=== PATIENT | male | born 1970 | race Caucasian/White ===

== ENCOUNTER 2023-02-22 19:54 | Emergency (ER) | payer OTHER, SELFPAY ==
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
[2023-02-22 21:23] VITALS: BP 139/92; PULSE 76; RESP 16; TEMP 36.9; O2SAT 97; BMI 32.7
== END 2023-02-22 21:50 | disposition home or self-care (01) ==
PROVIDERS: Emergency Provider Emergency Medicine; PCP Family Medicine
DX: S92.321A Displaced fracture of second metatarsal bone, right foot, initial encounter for closed fracture (principal); V03.90XA Pedestrian on foot injured in collision with car, pick-up truck or van, unspecified whether traffic or nontraffic accident, initial encounter
CPT/HCPCS: 73630; 99283

== ENCOUNTER 2023-02-24 15:14 | Outpatient (OUT) | payer OTHER, SELFPAY ==
--- NOTE | 2023-02-24 | XR_ITS ---
[address] [address] Patient Name: HARLAN ARNOLD MRN: [id number] date: 1970 Sex: M Assigned Patient Location: Current Patient Location: Accession/Order Number: [id number] Exam Date: 02/24/2023 15:28 Report Date: 02/25/2023 07:36 At the request of: FANNIE PAUL Procedure: XR foot RT min 3V PROCEDURE: XR foot RT min 3V COMPARISON: 02/22/2023 HISTORY: RIGHT FOOT PAIN FINDINGS: BONES:Stable fractures lateral base of the first distal phalanx and neck of the second metatarsal mild interval healing. No new fracture or dislocation SOFT TISSUES:Negative. No visible soft tissue swelling. EFFUSION:None visible. OTHER: Negative. IMPRESSION: Stable healing fractures Electronically authenticated by: AUDELIA SILVER Date: 02/25/2023 07:36
== END 2023-02-24 15:15 | disposition home or self-care (01) ==
LOC: WC 15:14
PROVIDERS: PCP Family Medicine; Visit Provider Physician Assistant
DX: M79.671 Pain in right foot (principal)
CPT/HCPCS: 73630

== ENCOUNTER 2023-03-10 14:17 | Outpatient (OUT) | payer OTHER, SELFPAY ==
--- NOTE | 2023-03-10 14:24 | XR_ITS ---
The [address] [address] Patient Name: HARLAN ARNOLD MRN: [id number] date: 1970 Sex: M Assigned Patient Location: [facility] Current Patient Location: Accession/Order Number: [id number] Exam Date: 03/10/2023 14:24 Report Date: 03/11/2023 07:29 At the request of: FANNIE PAUL Procedure: XR foot RT min 3V PROCEDURE: XR foot RT min 3V COMPARISON: 02/24/2023 HISTORY: RIGHT FOOT PAIN FINDINGS: BONES:Stable healing oblique extra-articular fracture distal diaphysis and neck of the second metatarsal with partial bony bridging. No new fracture. No dislocation. Degenerative changes with marginal osteophyte formation and enthesopathic spurring SOFT TISSUES:Negative. No visible soft tissue swelling. EFFUSION:None visible. OTHER: Negative. XR/XR foot RT min 3V IMPRESSION: Stable healing second metatarsal fracture Electronically authenticated by: AUDELIA SILVER Date: 03/11/2023 07:29
== END 2023-03-10 14:18 | disposition home or self-care (01) ==
LOC: RAD 14:17
PROVIDERS: PCP Family Medicine; Visit Provider Physician Assistant
DX: S92.424A Nondisplaced fracture of distal phalanx of right great toe, initial encounter for closed fracture (principal)
CPT/HCPCS: 73630

== ENCOUNTER 2023-03-30 11:42 | Outpatient (OUT) | payer OTHER, SELFPAY ==
--- NOTE | 2023-03-30 11:45 | XR_ITS ---
The [address] [address] Patient Name: HARLAN ARNOLD MRN: [id number] date: 1970 Sex: M Assigned Patient Location: [facility] Current Patient Location: [facility] Accession/Order Number: [id number] Exam Date: 03/30/2023 11:45 Report Date: 03/30/2023 13:39 At the request of: JOANIE BURGOS Procedure: XR foot RT min 3V STUDY: XR foot RT min 3V, [id number] HISTORY: RIGHT FOOT PAIN COMPARISON: Right foot x-rays 03/10/2023 and 02/24/2023. FINDINGS: Similar alignment and degree of displacement of the transverse oriented fracture of the distal diaphysis of the right second metatarsal which demonstrates interval bony consolidation and callus formation compared with 03/10/2023. No new or worsening osseous abnormality. XR/XR foot RT min 3V IMPRESSION: Healing second metatarsal fracture. Electronically authenticated by: PAOLA MACK Date: 03/30/2023 13:39
== END 2023-03-30 11:43 | disposition home or self-care (01) ==
LOC: RAD 11:43
PROVIDERS: PCP Family Medicine; Visit Provider Podiatrist Foot & Ankle Surgery
DX: S92.421D Displaced fracture of distal phalanx of right great toe, subsequent encounter for fracture with routine healing (principal); S92.321D Displaced fracture of second metatarsal bone, right foot, subsequent encounter for fracture with routine healing
CPT/HCPCS: 73630

== ENCOUNTER 2023-11-22 11:20 | Emergency (ER) | payer SELFPAY ==
[2023-11-22 11:29] VITALS: BP 189/117; PULSE 85; TEMP 36.4; O2SAT 98; BMI 33.5
--- NOTE | 2023-11-22 12:21 | ED.ABDPAIN1 ---
HPI - Abdominal Pain General Chief Complaint: Abdominal Pain Stated Complaint: ABDOMINAL PAIN Time Seen by Provider: 11/22/23 11:52 Source: patient Mode of arrival: walk-in History of Present Illness HPI narrative: 53-year-old male presents to the emergency department for low abdominal pain and possible constipation. He states he has been having issues like this for years and 5 years ago he had a colonoscopy. Recently he has had hard stools and he tries to push it out and it comes out then. This is not unusual for him. No blood in his stool or vomiting. His pain is moderate to severe and in the lower abdomen. Related Data Allergies Allergy/AdvReac Type Severity Reaction Status Date / Time No Known Drug Allergies Allergy Verified 02/22/23 21:26 Review of Systems ROS Narrative A ten point review of systems is negative except as noted above. Exam Narrative Exam Narrative: Nurses note and vital signs reviewed and patient is not hypoxic. General: The patient appears well and in no apparent distress. Patient is resting comfortably on cart. Skin: Warm, dry, no pallor noted. There is no rash noted. Head: Normocephalic, atraumatic Eye: Normal conjunctiva, no drainage Ears, Nose, Mouth, and Throat: oral mucosa is moist. Nares patent. Cardiovascular: Regular Rate and Rhythm Respiratory: Patient is in no distress, no accessory muscle use, lungs are clear to auscultation, no wheezing, rales or rhonchi Back: non-tender GI: Mild tenderness across lower abdomen without distention or mass Musculoskeletal: The patient has no evidence of calf tenderness, no pitting edema, symmetrical pulses noted bilaterally Neurological: A&O, normal speech Psychiatric: Cooperative Constitutional Vital Signs, click to edit/add: Last Vital Signs Temp 97.6 F 11/22/23 11:29 Pulse 85 11/22/23 11:29 Resp 17 11/22/23 11:29 BP 189/117 H 11/22/23 11:29 Pulse Ox 98 11/22/23 11:29 O2 Del Method Room Air 11/22/23 11:29 Course Vital Signs Vital signs: Vital Signs Temperature 97.6 F 11/22/23 11:29 Pulse Rate 85 11/22/23 11:29 Respiratory Rate 17 11/22/23 11:29 Blood Pressure 189/117 H 11/22/23 11:29 Pulse Oximetry 98 11/22/23 11:29 Oxygen Delivery Method Room Air 11/22/23 11:29 Temperature 97.6 F 11/22/23 11:29 Pulse Rate 85 11/22/23 11:29 Respiratory Rate 17 11/22/23 11:29 Blood Pressure 189/117 H 11/22/23 11:29 Pulse Oximetry 98 11/22/23 11:29 Oxygen Delivery Method Room Air 11/22/23 11:29 MDM - Abdominal Pain MDM Narrative Medical decision making narrative: CT scan per radiologist shows presence of diverticulosis but no diverticulitis. He seems to be constipated on the x-rays and findings are discussed thoroughly with the patient. She had a colonoscopy about 5 years ago and will follow-up with his doctor to determine if he needs another 1. Treatment diagnosis and follow-up were discussed with the patient Differential Diagnosis Differential diagnosis: Likely abdominal pain, constipation, diverticulitis, pancreatitis and other (Colitis, nonspecific abdominal pain) Lab Data Attestation: I reviewed the patient's lab results. Labs: Lab Results 11/22/23 11/22/23 Range/Units 11:38 11:39 WBC 6.0 (4.0-11.0) 10^3/uL RBC 5.64 (4.70-6.10) 10^6/uL Hgb 18.3 H (14.0-18.0) g/dL Hct 53.2 (42.0-54.0) % MCV 94.3 H (80.0-94.0) fL MCH 32.4 (25.9-34.0) pg MCHC 34.4 (29.9-35.2) g/dL RDW 11.5 (11.0-15.0) % Plt Count 188 (150-450) 10^3/uL MPV 11.1 (9.5-13.5) fL Neut % (Auto) 54.5 (43.0-75.0) % Lymph % (Auto) 25.8 (20.5-60.0) % [place] % (Auto) 9.7 (1.7-12.0) % Eos % (Auto) 8.9 H (0.9-7.0) % Baso % (Auto) 0.8 (0.2-2.0) % Neut # (Auto) 3.3 (1.4-6.5) 10^3/uL Lymph # (Auto) 1.5 (1.2-3.8) 10^3/uL [place] # (Auto) 0.6 (0.3-0.8) 10^3/uL Eos # (Auto) 0.5 (0.0-0.7) 10^3/uL Baso # (Auto) 0.1 (0.0-0.1) 10^3/uL Abs Immat Gran (auto) 0.02 (0.00-0.03) 10^3/uL Imm/Tot Granulo (auto) 0.3 (0.0-0.5) % Sodium 139 (136-145) mmol/L Potassium 3.9 (3.5-5.1) mmol/L Chloride 100 (98-107) mmol/L Carbon Dioxide 29.4 (21.0-32.0) mmol/L Anion Gap 13.5 BUN 7.0 (7.0-18.0) mg/dL Creatinine 1.13 (0.70-1.30) mg/dL Est GFR ( Amer) >60 (>=60) Est GFR (Non-Af Amer) >60 (>=60) BUN/Creatinine Ratio 6.2 Glucose 102 (74-106) mg/dL Calcium 9.1 (8.5-10.1) mg/dL Total Bilirubin 0.8 (0.2-1.0) mg/dL Direct Bilirubin 0.2 (0.0-0.2) mg/dL AST 23 (15-37) U/L ALT 44 (16-63) U/L Alkaline Phosphatase 103 (46-116) U/L Total Protein 7.7 (6.4-8.2) g/dL Albumin 4.3 (3.4-5.0) g/dL Globulin 3.4 g/dL Albumin/Globulin Ratio 1.3 Amylase 60 (25-115) U/L Lipase 39.0 (16.0-77.0) U/L Urine Color Lt. yellow (YELLOW) Urine Clarity Clear (CLEAR) Urine pH 7.0 (5.0-9.0) Ur Specific [place] 1.010 (1.005-1.025) Urine Protein Negative (NEG/TRACE) mg/dL Urine Glucose (UA) Negative (NEGATIVE) mg/dL Urine Ketones Negative (NEGATIVE) mg/dL Urine Occult Blood Negative (NEGATIVE) Urine Nitrite Negative (NEGATIVE) Urine Bilirubin Negative (NEGATIVE) Urine Urobilinogen 0.2 (0.2-1.0) EU/dL Ur Leukocyte Esterase Negative (NEGATIVE) Urine RBC None seen (0-2) #/HPF Urine WBC None seen (NONE SEEN) #/HPF Ur Squamous Epith Cells Rare (NONE/RARE) #/LPF Urine Bacteria None seen (NONE SEEN) #/HPF Urine Mucus None seen (NONE SEEN) Imaging Data CT scan - abdomen: Radiologist's impression: ITS Impressions Abdomen X-Ray 11/22/23 12:23 IMPRESSION: 1. Mild-moderate stool burden. 2. No bowel obstruction or suspicious findings. Electronically authenticated by: MANUEL TAM Date: 11/22/2023 13:05 Abdomen/Pelvis CT 11/22/23 13:30 IMPRESSION: 1. Large degree of diverticulosis of the descending colon and sigmoid colon without acute inflammation. 2. No bowel obstruction. There is no evidence of acute inflammation of the small bowel or colon. 3. A simple cyst in the right kidney is stable. No kidney stones. No hydronephrosis. Electronically authenticated by: MELY GROVE Date: 11/22/2023 14:27 Discharge Plan Discharge Stand Alone Forms: Portal Instructions Chief Complaint: Abdominal Pain Clinical Impression: Constipation Patient Disposition: Home, Self-Care Time of Disposition Decision: 14:28 Condition: Good Mode of Transportation: Private Vehicle Print Language: Persian Instructions: Constipation (ED) Additional Instructions: Follow-up with your PCP to discuss if you need a colonoscopy. Referrals: MELY BONILLA [Primary Care Provider] - 1 week
--- NOTE | 2023-11-22 12:23 | XR_ITS ---
The [address] [address] Patient Name: HARLAN ARNOLD MRN: [id number] date: 1970 Sex: M Assigned Patient Location: ER Current Patient Location: ER Accession/Order Number: [id number] Exam Date: 11/22/2023 12:40 Report Date: 11/22/2023 13:05 At the request of: MARISOL BALL Procedure: XR abdomen 1V EXAMINATION: XR abdomen 1V HISTORY: Pain, possible constipation COMPARISON: XR abdomen 01/12/2020 FINDINGS: BOWEL GAS PATTERN: No abnormal bowel dilation, suspicious fluid levels, or significant stool burden. Small to moderate amount of stool throughout the colon. CALCIFICATIONS: None significant. OTHER: Negative. No abnormal gaseous collections. XR/XR abdomen 1V IMPRESSION: 1. Mild-moderate stool burden. 2. No bowel obstruction or suspicious findings. Electronically authenticated by: MANUEL TAM Date: 11/22/2023 13:05
[2023-11-22 12:35] LABS: Bilirubin Urine NEGATIVE (NEGATIVE); Blood Urine NEGATIVE (NEGATIVE); Clarity Urine CLEAR (CLEAR); Color Urine LT. YELLOW (YELLOW); Glucose Urine UA NEGATIVE (NEGATIVE); Ketones Urine NEGATIVE (NEGATIVE); Leukocyte Esterase Urine NEGATIVE (NEGATIVE); Nitrite Urine NEGATIVE (NEGATIVE); Protein Urine NEGATIVE (NEG/TRACE); Urobilinogen Urine 0.2 EU/dL (0.2-1.0)
[2023-11-22 12:45] LABS: Alanine Aminotransferase 44 U/L (16-63); Albumin Globulin Ratio 1.3; Albumin Level 4.3 g/dL (3.4-5.0); Alkaline Phosphatase 103 U/L (46-116); Amylase 60 U/L (25-115); Anion Gap 13.5; Aspartate Amino Transferase 23 U/L (15-37); BUN Creatinine Ratio 6.2; Bilirubin Direct 0.2 mg/dL (0.0-0.2); Bilirubin Total 0.8 mg/dL (0.2-1.0); Calcium 9.1 mg/dL (8.5-10.1); Carbon Dioxide 29.4 mmol/L (21.0-32.0); Chloride 100 mmol/L (98-107); Estimated GFR (African America >60 (>=60); Estimated GFR (Non-African Ame >60 (>=60); Globulin 3.4 g/dL; Glucose 102 mg/dL (74-106); Potassium 3.9 mmol/L (3.5-5.1); Sodium 139 mmol/L (136-145); Total Protein 7.7 g/dL (6.4-8.2)
[2023-11-22 12:48] LABS: Basophils Absolute Auto 0.1 10^3/uL (0.0-0.1); Basophils Percent Auto 0.8 % (0.2-2.0); Eosinophils Absolute Auto 0.5 10^3/uL (0.0-0.7); Eosinophils Percent Auto 8.9 % (0.9-7.0); Hematocrit 53.2 % (42.0-54.0); Hemoglobin 18.3 g/dL (14.0-18.0); Immature Granulocytes Abs Auto 0.02 10^3/uL (0.00-0.03); Immature Granulocytes Pct Auto 0.3 % (0.0-0.5); Lymphocytes Absolute Auto 1.5 10^3/uL (1.2-3.8); Lymphocytes Percent Auto 25.8 % (20.5-60.0); Mean Corpuscular HGB Conc 34.4 g/dL (29.9-35.2); Mean Corpuscular Hemoglobin 32.4 pg (25.9-34.0); Mean Corpuscular Volume 94.3 fL (80.0-94.0); Mean Platelet Volume 11.1 fL (9.5-13.5); Monocytes Absolute Auto 0.6 10^3/uL (0.3-0.8); Monocytes Percent Auto 9.7 % (1.7-12.0); Neutrophils Absolute Auto 3.3 10^3/uL (1.4-6.5); Neutrophils Percent Auto 54.5 % (43.0-75.0); Platelet Count 188 10^3/uL (150-450); Red Blood Count 5.64 10^6/uL (4.70-6.10); Red Cell Distribution Width 11.5 % (11.0-15.0)
[2023-11-22 12:54] LABS: Bacteria Urine NONE SEEN #/HPF (NONE SEEN); RBC Urine NONE SEEN #/HPF (0-2); WBC Urine NONE SEEN #/HPF (NONE SEEN)
[2023-11-22 12:55] LABS: Mucus Urine NONE SEEN (NONE SEEN); Squamous Epithelial Cell Urine RARE #/LPF (NONE/RARE)
--- NOTE | 2023-11-22 13:30 | CT_ITS ---
The [address] [address] Patient Name: HARLAN ARNOLD MRN: [id number] date: 1970 Sex: M Assigned Patient Location: ER Current Patient Location: ER Accession/Order Number: [id number] Exam Date: 11/22/2023 13:17 Report Date: 11/22/2023 14:27 At the request of: MARISOL BALL Procedure: CT abdomen pelvis w con CT abdomen and pelvis with contrast, 11/22/2023. HISTORY: Chronic abdominal pain. Diarrhea. Constipation. COMPARISON: CT abdomen and pelvis, 03/26/2022. TECHNIQUE: Postcontrast axial CT images obtained through the abdomen and pelvis. Reconstructions obtained in the sagittal and coronal planes. Dose reduction techniques were achieved by using automated exposure control and/or adjustment of mA and/or kV according to patient size and/or use of iterative reconstruction technique. FINDINGS: Lung bases are clear. No pleural effusion. Heart size is normal. No pericardial effusion. Liver unremarkable. Gallbladder normal. No abnormal bile duct dilatation. Pancreas is normal. Spleen normal. Adrenal glands normal. There is a simple cyst in the upper pole of the right kidney measuring 2.2 cm. This is stable. Kidneys are otherwise unremarkable. No hydronephrosis or kidney stones. Stomach normal. Duodenum normal. No small bowel obstruction. There is no small bowel wall thickening. The appendix is not clearly identified. No abnormal thickening of the colon. There are several diverticula along the descending colon and sigmoid colon without acute inflammation. Abdominal aorta normal in size. Inferior vena cava is normal in size. No ascites. No lymphadenopathy. No free air. In the pelvis, there is no bladder wall thickening. No bladder lesion. Prostate gland unremarkable. Rectum appears normal. No pelvic lymphadenopathy. No free fluid in the pelvis. No acute compression fracture. No suspicious osseous lesion. CT/CT abdomen pelvis w con IMPRESSION: 1. Large degree of diverticulosis of the descending colon and sigmoid colon without acute inflammation. 2. No bowel obstruction. There is no evidence of acute inflammation of the small bowel or colon. 3. A simple cyst in the right kidney is stable. No kidney stones. No hydronephrosis. Electronically authenticated by: MELY GROVE Date: 11/22/2023 14:27
== END 2023-11-22 14:40 | disposition home or self-care (01) ==
PROVIDERS: Emergency Provider Emergency Medicine; PCP Family Medicine
DX: K59.00 Constipation, unspecified (principal)
CPT/HCPCS: 36415; 74018; 74177; 80048; 80076; 81001; 82150; 83690; 85025; 99285; Q9967

== ENCOUNTER 2024-03-09 11:35 | Emergency (ER) | payer MEDICAID, SELFPAY ==
[2024-03-09 11:56] VITALS: BP 164/98; PULSE 119; TEMP 36.6; O2SAT 96; BMI 29.5
--- NOTE | 2024-03-09 12:11 | XR_ITS ---
The [address] [address] Patient Name: HARLAN ARNOLD MRN: [id number] date: 1970 Sex: M Assigned Patient Location: ER Current Patient Location: ED.MAIN Accession/Order Number: [id number] Exam Date: 03/09/2024 12:32 Report Date: 03/09/2024 12:47 At the request of: LA CORNELL Procedure: XR acute abdomen series EXAMINATION: XR acute abdomen series HISTORY: abd pain COMPARISON: No relevant comparison available. FINDINGS: LUNGS: No infiltrate, pneumothorax, or pleural effusion. MEDIASTINUM: No abnormal widening. BOWEL GAS PATTERN: Non-obstructed. No abnormal dilation or suspicious fluid levels. Moderate stool burden. FREE AIR: None. CALCIFICATIONS: None significant. BONES: No fracture or visible bone lesion. OTHER: Negative. XR/XR acute abdomen series IMPRESSION: 1. No acute cardiopulmonary process. 2. No bowel obstruction or suspicious abdominal findings. Moderate stool burden. Electronically authenticated by: MANUEL TAM Date: 03/09/2024 12:47
[2024-03-09 13:03] VITALS: BP 142/90; PULSE 80; O2SAT 98
--- NOTE | 2024-03-09 14:35 | ED.GENADUL1 ---
HPI HPI - General Adult General Chief complaint: Abdominal Pain Stated complaint: ABDOMINAL CRAMPING Time Seen by Provider: 03/09/24 13:50 Source: patient Mode of arrival: walk-in Limitations: no limitations History of Present Illness HPI narrative: Pt is a 53yo male who is presenting to the ER with chief complaint of 3 to 4 months of constipation. Patient has been in and out of rehab for benzodiazepines. Patient has been suffering with constipation for years. Patient did have a colonoscopy in the last several months. Patient had a few polyps nothing else significant. Patient has been getting intermittent bottles of magnesium citrate at rehab to help flush them out. Patient says when he drinks a bottle of magnesium citrate, he will have bowel movements for 16 hours. Patient is frustrated and wants more regimen to his bowels. Patient has no severe rectal pain at this time. Patient is concerned about constipation. Patient has not called any GI physician and set up his appointment. Patient is expecting us to relieve his bowels, and find a cure why he has been having constipation for the past 2 to 3 years. Patient is currently not taking opiates. Patient has no other acute complaints. No fever or chills. No chest pain or shortness of breath. No rectal pain. 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 All systems reviewed and otherwise negative. Nurses note and vital signs reviewed and patient is not hypoxic. General: The patient appears well and in no apparent distress. Patient is resting comfortably on cart. Patient is not toxic, lethargic, or listless Skin: Warm, dry, no pallor noted. There is no rash noted. No petechiae, purpura. Head: Normocephalic, atraumatic Eye: Normal conjunctiva, no drainage, EOMI. PERRL Ears, Nose, Mouth, and Throat: oral mucosa is moist. Nares patent. Mouth without vesicles. Cardiovascular: Regular Rate and Rhythm, no murmur, gallop, rub Respiratory: Patient is in no distress, no accessory muscle use, lungs are clear to auscultation, no wheezing, rales or rhonchi Back: non-tender, no CVA tenderness bilaterally to percussion. No CT LS midline pain GI: Mild diffuse tenderness to palpation, no masses appreciated. No rebound, guarding, or rigidity noted. Mild distention, bowel sounds x 4. No peritoneal signs. No peritoneal signs. Musculoskeletal: Patient has full range of motion of all of the extremities, no motor, sensory, or focal neurological deficits Neurological: A&O x4, normal speech Psychiatric: Cooperative Related Data Previous Rx's ?Medication ?Instructions ?Recorded dicyclomine 20 mg tablet 20 mg PO TID PRN abdominal pain #7 03/09/24 tabs docusate sodium 100 mg capsule 100 mg PO DAILY #20 caps 03/09/24 (Colace) metoclopramide HCl 10 mg tablet 10 mg PO Q6H PRN nausea and 03/09/24 (Reglan) vomiting 3 days #7 tabs ondansetron 4 mg disintegrating 4 mg PO Q4H PRN nausea and 03/09/24 tablet vomiting 3 days #6 tabs Allergies Allergy/AdvReac Type Severity Reaction Status Date / Time No Known Drug Allergies Allergy Verified 02/22/23 21:26 Opioid HPI Opioid Management Most Recent Opioid Data: Last Pain Scale 6 03/09/24 12:26 Exam Constitutional Vital Signs, click to edit/add: Last Vital Signs Temp 97.8 F 03/09/24 11:56 Pulse 80 03/09/24 13:03 Resp 18 03/09/24 13:03 BP 142/90 H 03/09/24 13:03 Pulse Ox 98 03/09/24 13:03 O2 Del Method Room Air 03/09/24 11:56 Course Vital Signs Vital signs: Vital Signs Temperature 97.8 F 03/09/24 11:56 Pulse Rate 119 H 03/09/24 11:56 Respiratory Rate 18 03/09/24 11:56 Blood Pressure 164/98 H 03/09/24 11:56 Pulse Oximetry 96 03/09/24 11:56 Oxygen Delivery Method Room Air 03/09/24 11:56 Temperature 97.8 F 03/09/24 11:56 Pulse Rate 80 03/09/24 13:03 Respiratory Rate 18 03/09/24 13:03 Blood Pressure 142/90 H 03/09/24 13:03 Pulse Oximetry 98 03/09/24 13:03 Oxygen Delivery Method Room Air 03/09/24 11:56 Medical Decision Making MDM Narrative Medical decision making narrative: Lengthy conversation was had with patient at bedside. X-ray shows no acute findings. Patient is already taking MiraLAX daily. Patient was prescribed Colace and Zofran and Reglan and Bentyl to use prophylactically. Patient has finally been referred today to a GI specialist at [facility] by his PCP Dr. Blanc. Patient will follow-up with PCP as needed. No acute indication for additional testing, patient was told to be more aggressive with [id number] medications. No questions at discharge. Discharge Plan Discharge Stand Alone Forms: Portal Instructions Chief Complaint: Abdominal Pain Clinical Impression: Abdominal pain, Constipation Patient Disposition: Home, Self-Care Time of Disposition Decision: 14:23 Prescriptions / Home Meds: New ondansetron 4 mg tablet,disintegrating 4 mg PO Q4H PRN (Reason: nausea and vomiting) 3 Days Qty: 6 0RF docusate sodium [Colace] 100 mg capsule 100 mg PO DAILY Qty: 20 0RF dicyclomine 20 mg tablet 20 mg PO TID PRN (Reason: abdominal pain) Qty: 7 0RF metoclopramide HCl [Reglan] 10 mg tablet 10 mg PO Q6H PRN (Reason: nausea and vomiting) 3 Days Qty: 7 0RF Print Language: Romanian Instructions: Constipation (ED), Abdominal Pain (ED) Additional Instructions: Continue meds as prescribed at home Go to GI office on Tuesday or Tuesday to secure your GI apt Continue miralax daily Referrals: MELY BLANC [Primary Care Provider] - 1 week Discharge Date/Time: 03/09/24 14:40
== END 2024-03-09 14:40 | disposition home or self-care (01) ==
PROVIDERS: Emergency Provider Emergency Medicine; PCP Family Medicine
DX: R10.9 Unspecified abdominal pain (principal); K59.00 Constipation, unspecified
CPT/HCPCS: 74022; 99283

== ENCOUNTER 2024-03-11 10:55 | Emergency (ER) | payer MEDICAID, SELFPAY ==
[2024-03-11 10:58] VITALS: BP 164/104; PULSE 108; TEMP 36.9; O2SAT 98; BMI 30.3
[2024-03-11] MEDS: KETOROLAC TROMETHAMINE 60 MG/2 ML VIAL IM (11:31)
[2024-03-11] MEDS: LIDOCAINE 2% JELLY 20 ML UR (11:31)
--- NOTE | 2024-03-11 12:12 | ED.GENADUL1 ---
HPI HPI - General Adult General Chief complaint: Abdominal Pain Stated complaint: ABDOMINAL PAIN Time Seen by Provider: 03/11/24 11:04 Source: patient Mode of arrival: walk-in Limitations: no limitations History of Present Illness HPI narrative: Patient presenting to us with a irritation in his rectal area abdomen concern, he has been having pain there and he feels that it is very tense that he is not able to even go to the bathroom. He did mention that he was dealing with some constipation he was provided with MiraLAX and have been having some liquid stool that are frequent Patient denies any blood in stool at any time He also have some abdominal cramping generalized in addition to not having a good bowel movement because of the pain Related Data Home Medications ?Medication ?Instructions ?Recorded ?Confirmed amlodipine 10 mg tablet 10 mg PO DAILY 03/11/24 03/11/24 clonidine HCl 0.1 mg tablet mg 03/11/24 Previous Rx's ?Medication ?Instructions ?Recorded dicyclomine 20 mg tablet 20 mg PO TID PRN abdominal pain #7 03/09/24 tabs docusate sodium 100 mg capsule 100 mg PO DAILY #20 caps 03/09/24 (Colace) metoclopramide HCl 10 mg tablet 10 mg PO Q6H PRN nausea and 03/09/24 (Reglan) vomiting 3 days #7 tabs ondansetron 4 mg disintegrating 4 mg PO Q4H PRN nausea and 03/09/24 tablet vomiting 3 days #6 tabs hydrocortisone acetate 25 mg 25 mg ME Q12H PRN irritation #12 ea 03/11/24 rectal suppository (Anusol-HC) lidocaine 5 % topical cream 1 applic topical TID PRN pain #15 03/11/24 (RectiCare) grams meloxicam 15 mg tablet 15 mg PO DAILY PRN pain #10 tabs 03/11/24 Allergies Allergy/AdvReac Type Severity Reaction Status Date / Time No Known Drug Allergies Allergy Verified 02/22/23 21:26 Opioid HPI Opioid Management Most Recent Opioid Data: Last Pain Scale 6 03/11/24 11:12 Last ED Pain Assessment 03/11/24 11:12 Review of Systems ROS Status of ROS 10 or more systems reviewed and unremarkable except as noted in history and below Exam Narrative Exam Narrative: Rectal examination showed that the patient have an anal fissure at 6:00 there is no fluctuation or any signs of infection but there is tenderness Nurses notes and vital signs reviewed and patient is not hypoxic. General: Well-appearing and in no apparent distress. Skin: Warm, dry, no pallor noted. No rash. Head: Normocephalic, atraumatic. Neck: Supple, non-tender. Eye: Pupils are equal, round and EOMI. No scleral icterus. Ears, Nose, Mouth, and Throat: TM are clear, no nasal mucosal hypertrophy. Oral mucosa is moist, no posterior oropharynx erythema, uvula is mid-line Cardiovascular: Regular Rate and Rhythm without murmur, gallop or rub. Respiratory: No accessory muscle use or respiratory distress. Lungs are clear to auscultation, no wheezing, rales or rhonchi Chest Wall: no tenderness Back: No midline thoracic or lumbar vertebral tenderness. No CVA tenderness Musculoskeletal: normal ROM, no calf or popliteal tenderness, no lower extremity edema/swelling GI: Abdomen is soft, non-distended. Normal bowel sounds. No masses appreciated. No tenderness to palpation. No rebound, guarding, or rigidity noted. Neurological: A&O x4. No cranial nerve dysfunction observed. No truncal ataxia. Moves all extremities. Sensation intact. Psychiatric: Cooperative and interactive. Normal mood and affect. Constitutional Vital Signs, click to edit/add: Last Vital Signs Temp 98.4 F 03/11/24 10:58 Pulse 88 03/11/24 12:18 Resp 16 03/11/24 12:18 BP 142/96 H 03/11/24 12:18 Pulse Ox 98 03/11/24 12:18 O2 Del Method Room Air 03/11/24 12:18 Course Vital Signs Vital signs: Vital Signs Temperature 98.4 F 03/11/24 10:58 Pulse Rate 108 H 03/11/24 10:58 Respiratory Rate 18 03/11/24 10:58 Blood Pressure 164/104 H 03/11/24 10:58 Pulse Oximetry 98 03/11/24 10:58 Oxygen Delivery Method Room Air 03/11/24 10:58 Temperature 98.4 F 03/11/24 10:58 Pulse Rate 88 03/11/24 12:18 Respiratory Rate 16 03/11/24 12:18 Blood Pressure 142/96 H 03/11/24 12:18 Pulse Oximetry 98 03/11/24 12:18 Oxygen Delivery Method Room Air 03/11/24 12:18 Medical Decision Making MDM Narrative Medical decision making narrative: The patient was treated with the lidocaine locally as well as Toradol after which she was feeling better Discharged home with instruction for warm sitz bath in addition to Anusol and RectiCare Patient was instructed about proper care at home The patient is to follow up with primary care physician in next 2-3 days or to return to the emergency department should any of the signs or symptoms worsen or new symptoms develop. The patient agrees with the following Diagnosis and Treatment plan and the patient will be discharged home. Discharge Plan Discharge Stand Alone Forms: Portal Instructions Chief Complaint: Abdominal Pain Clinical Impression: Acute anal fissure Patient Disposition: Home, Self-Care Time of Disposition Decision: 12:12 Condition: Good Mode of Transportation: Private Vehicle Prescriptions / Home Meds: New lidocaine [RectiCare] 5 % cream 1 applic topical TID PRN (Reason: pain) Qty: 15 0RF hydrocortisone acetate [Anusol-HC] 25 mg suppository 25 mg ME Q12H PRN (Reason: irritation) Qty: 12 0RF meloxicam 15 mg tablet 15 mg PO DAILY PRN (Reason: pain ) Qty: 10 0RF No Action ondansetron 4 mg tablet,disintegrating 4 mg PO Q4H PRN (Reason: nausea and vomiting) 3 Days Qty: 6 0RF docusate sodium [Colace] 100 mg capsule 100 mg PO DAILY Qty: 20 0RF dicyclomine 20 mg tablet 20 mg PO TID PRN (Reason: abdominal pain) Qty: 7 0RF metoclopramide HCl [Reglan] 10 mg tablet 10 mg PO Q6H PRN (Reason: nausea and vomiting) 3 Days Qty: 7 0RF amlodipine 10 mg tablet 10 mg PO DAILY clonidine HCl 0.1 mg tablet Hold Instructions: dc Print Language: Filipino Instructions: Anal Fissure (ED), Sitz Bath (DC) Referrals: MELY BONILLA [Primary Care Provider] - 1 week Discharge Date/Time: 03/11/24 12:28
[2024-03-11 12:18] VITALS: BP 142/96; PULSE 88; O2SAT 98
== END 2024-03-11 12:28 | disposition home or self-care (01) ==
PROVIDERS: Emergency Provider Emergency Medicine; PCP Family Medicine
DX: K60.0 Acute anal fissure (principal)
CPT/HCPCS: 96372; 99284; J1885

== ENCOUNTER 2024-03-13 11:48 | Emergency (ER) | payer MEDICAID, SELFPAY ==
[2024-03-13 11:51] VITALS: BP 150/97; PULSE 91; TEMP 36.8; O2SAT 95; BMI 28.9
--- NOTE | 2024-03-13 12:02 | CT_ITS ---
[address] [address] Patient Name: HARLAN ARNOLD MRN: [id number] date: 1970 Sex: M Assigned Patient Location: ER Current Patient Location: Accession/Order Number: [id number] Exam Date: 03/13/2024 12:20 Report Date: 03/13/2024 12:51 At the request of: BOBY CURIEL Procedure: CT abdomen pelvis wo con EXAMINATION: CT abdomen pelvis wo con HISTORY: abd pain and constipation COMPARISON: CT abdomen pelvis 11/22/2023 TECHNIQUE: Axial, Coronal, and Sagittal images were obtained without and/or with IV contrast as indicated by examination type. Dose reduction techniques were achieved by using automated exposure control and/or adjustment of mA and/or kV according to patient size and/or use of iterative reconstruction technique. FINDINGS: LUNG BASES: No visible pulmonary or pleural disease. LIVER: No enlargement, atrophy, suspicious density, or significant focal lesion. BILIARY: Mild wall thickening of gallbladder which is only slightly distended. No free fluid, abnormal duct dilation, or stones. PANCREAS: No lesion, fluid collection, or abnormal duct dilatation. SPLEEN: No enlargement or focal lesion. ADRENALS: No mass or enlargement. KIDNEYS: No mass, obstruction, or calcification. BOWEL/MESENTERY: Innumerable noninflamed diverticula involving the descending and sigmoid colon. Unremarkable stomach and small bowel. No visible mass, obstruction, or bowel wall thickening. AORTA/VASCULAR: No aneurysm or dissection. RETROPERITONEUM: No mass or adenopathy. LYMPH NODES: No adenopathy. URINARY BLADDER: No visible focal wall thickening, lesion, or calculus. PELVIC ORGANS: No visible mass. Pelvic organs appropriate for patient age. ABDOMINAL WALL: Stable fat filled umbilical hernia without strangulation. Stable small hernia within lower lateral right abdominal wall containing fat and small bowel; no strangulation or obstruction. BONES: No bony lesion or fracture. OTHER: Negative. CT/CT abdomen pelvis wo con IMPRESSION: 1. The gallbladder is not well distended, but the [place] are abnormally thickened and have indistinct margins raising concern for acute or chronic acalculous cholecystitis. 2. Colonic diverticulosis without acute diverticulitis. No acute bowel findings or constipation. 3. Stable umbilical and lower right anterior abdominal wall hernias; no strangulation or obstruction. Electronically authenticated by: MANUEL TAM Date: 03/13/2024 12:51
[2024-03-13] MEDS: KETOROLAC TROMETHAMINE 30 MG/ML VIAL 15 MG IVP (12:16)
[2024-03-13] MEDS: FAMOTIDINE/PF 20 MG/2 ML VIAL IV (12:16)
[2024-03-13] MEDS: 0.9 % SODIUM CHLORIDE 1,000 ML 1000 ML IV (12:17)
[2024-03-13 12:25] LABS: Basophils Absolute Auto 0.1 10^3/uL (0.0-0.1); Basophils Percent Auto 0.8 % (0.2-2.0); Eosinophils Absolute Auto 0.5 10^3/uL (0.0-0.7); Eosinophils Percent Auto 8.2 % (0.9-7.0); Hematocrit 53.9 % (42.0-54.0); Hemoglobin 18.9 g/dL (14.0-18.0); Immature Granulocytes Abs Auto 0.02 10^3/uL (0.00-0.03); Immature Granulocytes Pct Auto 0.3 % (0.0-0.5); Lymphocytes Percent Auto 15.1 % (20.5-60.0); Mean Corpuscular HGB Conc 35.1 g/dL (29.9-35.2); Mean Corpuscular Hemoglobin 32.1 pg (25.9-34.0); Mean Corpuscular Volume 91.7 fL (80.0-94.0); Mean Platelet Volume 10.6 fL (9.5-13.5); Monocytes Absolute Auto 0.7 10^3/uL (0.3-0.8); Monocytes Percent Auto 10.3 % (1.7-12.0); Neutrophils Absolute Auto 4.3 10^3/uL (1.4-6.5); Neutrophils Percent Auto 65.3 % (43.0-75.0); Platelet Count 210 10^3/uL (150-450); Red Blood Count 5.88 10^6/uL (4.70-6.10); Red Cell Distribution Width 11.9 % (11.0-15.0); White Blood Count 6.6 10^3/uL (4.0-11.0)
[2024-03-13 12:36] LABS: Alanine Aminotransferase 90 U/L (16-63); Albumin Globulin Ratio 1.1; Albumin Level 4.2 g/dL (3.4-5.0); Alkaline Phosphatase 117 U/L (46-116); Anion Gap 10.9; Aspartate Amino Transferase 52 U/L (15-37); BUN Creatinine Ratio 14.8; Calcium 8.8 mg/dL (8.5-10.1); Carbon Dioxide 26.2 mmol/L (21.0-32.0); Chloride 95 mmol/L (98-107); Estimated GFR (African America >60 (>=60); Estimated GFR (Non-African Ame >60 (>=60); Globulin 3.7 g/dL; Glucose 89 mg/dL (74-106); Potassium 4.1 mmol/L (3.5-5.1); Sodium 128 mmol/L (136-145); Total Protein 7.9 g/dL (6.4-8.2)
--- NOTE | 2024-03-13 12:55 | ED_ITS ---
HPI - Abdominal Pain General Chief Complaint: Abdominal Pain Stated Complaint: ABDOMINAL PAIN Time Seen by Provider: 03/13/24 12:01 Source: patient Mode of arrival: walk-in Limitations: no limitations History of Present Illness HPI narrative: The patient coming to the ER for the second time for anal fissure management , the patient has been using the lidocaine cream and the the Anusol was not approved by his insurance but he still complaining of pain and generalized abdominal cramping. No fever or chills and he has started eating today with no nausea no vomiting Related Data Home Medications ?Medication ?Instructions ?Recorded ?Confirmed amlodipine 10 mg tablet 10 mg PO DAILY 03/11/24 03/11/24 clonidine HCl 0.1 mg tablet mg 03/11/24 Previous Rx's ?Medication ?Instructions ?Recorded dicyclomine 20 mg tablet 20 mg PO TID PRN abdominal pain #7 03/09/24 tabs docusate sodium 100 mg capsule 100 mg PO DAILY #20 caps 03/09/24 (Colace) metoclopramide HCl 10 mg tablet 10 mg PO Q6H PRN nausea and 03/09/24 (Reglan) vomiting 3 days #7 tabs ondansetron 4 mg disintegrating 4 mg PO Q4H PRN nausea and 03/09/24 tablet vomiting 3 days #6 tabs lidocaine 5 % topical cream 1 applic topical TID PRN pain #15 03/11/24 (RectiCare) grams meloxicam 15 mg tablet 15 mg PO DAILY PRN pain #10 tabs 03/11/24 nitroglycerin 0.4 % (w/w) rectal 1 inch TN BID #30 grams 03/13/24 ointment Allergies Allergy/AdvReac Type Severity Reaction Status Date / Time No Known Drug Allergies Allergy Verified 03/13/24 11:51 Review of Systems ROS Status of ROS 10 or more systems reviewed and unremark able except as noted in history and below Exam Narrative Exam Narrative: Nurses notes and vital signs reviewed and patient is not hypoxic. General: Well-appearing and in no apparent distress. Skin: Warm, dry, no pallor noted. No rash. Head: Normocephalic, atraumatic. Neck: Supple, non-tender. Eye: Pupils are equal, round and EOMI. No scleral icterus. Ears, Nose, Mouth, and Throat: TM are clear, no nasal mucosal hypertrophy. Oral mucosa is moist, no posterior oropharynx erythema, uvula is mid-line Cardiovascular: Regular Rate and Rhythm without murmur, gallop or rub. Respiratory: No accessory muscle use or respiratory distress. Lungs are clear to auscultation, no wheezing, rales or rhonchi Chest Wall: no tenderness Back: No midline thoracic or lumbar vertebral tenderness. No CVA tenderness Musculoskeletal: normal ROM, no calf or popliteal tenderness, no lower extremity edema/swelling GI: Abdomen is soft, non-distended. Normal bowel sounds. No masses appreciated. The patient have generalized abdominal discomfort with right lower abdominal pain that is mostly at the mid lower and the patient does not have any positive Vital sign Rectal exam shows some scarring at the 6:00 there is no fluctuation or any signs of infection although the patient is very tender there and due to his body habitus is preventing a proper evaluation Neurological: A&O x4. No cranial nerve dysfunction observed. No truncal ataxia. Moves all extremities. Sensation intact. Psychiatric: Cooperative and interactive. Normal mood and affect. Constitutional Vital Signs, click to edit/add: Last Vital Signs Temp 98.2 F 03/13/24 11:51 Pulse 91 H 03/13/24 11:51 Resp 03/13/24 11:51 BP 150/97 H 03/13/24 11:51 Pulse Ox 03/13/24 11:51 O2 Del Method Room Air 03/13/24 11:51 Course Vital Signs Vital signs: Vital Signs Temperature 98.2 F 03/13/24 11:51 Pulse Rate 91 H 03/13/24 11:51 Respiratory Rate 03/13/24 11:51 Blood Pressure 150/97 H 03/13/24 11:51 Pulse Oximetry 03/13/24 11:51 Oxygen Delivery Method Room Air 03/13/24 11:51 Temperature 98.2 F 03/13/24 11:51 Pulse Rate 91 H 03/13/24 11:51 Respiratory Rate 03/13/24 11:51 Blood Pressure 150/97 H 03/13/24 11:51 Pulse Oximetry 03/13/24 11:51 Oxygen Delivery Method Room Air 03/13/24 11:51 MDM - Abdominal Pain MDM Narrative Medical decision making narrative: The patient CBC and chemistry showed no acute pathology CT abdomen pelvis shows a possibility of thickened wall of the gallbladder but the patient have generalized abdominal pain not specifically to the right upper quadrant The patient also have no nausea no vomiting leukocytosis His presentation was mostly is for the anal fissure management I did speak with the pharmacy and confirmed that we can give him nitroglycerin rectal cream for anal fissure management The patient also had ultrasound of the gallbladder that was not specific but with the patient current presentation that is not concerning for acute cholecystitis he will follow-up with his primary care doctor within a week he also to come back in case of any worsening of his symptoms The patient is to follow up with primary care physician in next 2-3 days or to return to the emergency department should any of the signs or symptoms worsen or new symptoms develop. The patient agrees with the following Diagnosis and Treatment plan and the patient will be discharged home. Lab Data Labs: Lab Results 03/13/24 Range/Units 12:10 WBC 6.6 (4.0-11.0) 10^3/uL RBC 5.88 (4.70-6.10) 10^6/uL Hgb 18.9 H (14.0-18.0) g/dL Hct 53.9 (42.0-54.0) % MCV 91.7 (80.0-94.0) fL MCH 32.1 (25.9-34.0) pg MCHC 35.1 (29.9-35.2) g/dL RDW 11.9 (11.0-15.0) % Plt Count 210 (150-450) 10^3/uL MPV 10.6 (9.5-13.5) fL Neut % (Auto) 65.3 (43.0-75.0) % Lymph % (Auto) 15.1 L (20.5-60.0) % [facility] % (Auto) 10.3 (1.7-12.0) % Eos % (Auto) 8.2 H (0.9-7.0) % Baso % (Auto) 0.8 (0.2-2.0) % Neut # (Auto) 4.3 (1.4-6.5) 10^3/uL Lymph # (Auto) 1.0 L (1.2-3.8) 10^3/uL [facility] # (Auto) 0.7 (0.3-0.8) 10^3/uL Eos # (Auto) 0.5 (0.0-0.7) 10^3/uL Baso # (Auto) 0.1 (0.0-0.1) 10^3/uL Abs Immat Gran (auto) 0.02 (0.00-0.03) 10^3/uL Imm/Tot Granulo (auto) 0.3 (0.0-0.5) % Sodium 128 L (136-145) mmol/L Potassium 4.1 (3.5-5.1) mmol/L Chloride 95 L (98-107) mmol/L Carbon Dioxide 26.2 (21.0-32.0) mmol/L Anion Gap 10.9 BUN 16.0 (7.0-18.0) mg/dL Creatinine 1.08 (0.70-1.30) mg/dL Est GFR ( Amer) >60 (>=60) Est GFR (Non-Af Amer) >60 (>=60) BUN/Creatinine Ratio 14.8 Glucose 89 (74-106) mg/dL Calcium 8.8 (8.5-10.1) mg/dL Total Bilirubin 1.0 (0.2-1.0) mg/dL AST 52 H (15-37) U/L ALT 90 H (16-63) U/L Alkaline Phosphatase 117 H (46-116) U/L Total Protein 7.9 (6.4-8.2) g/dL Albumin 4.2 (3.4-5.0) g/dL Globulin 3.7 g/dL Albumin/Globulin Ratio 1.1 Discharge Plan Discharge Stand Alone Forms: Portal Instructions Chief Complaint: Abdominal Pain Clinical Impression: Anal fissure Patient Disposition: Home, Self-Care Time of Disposition Decision: 14:14 Condition: Good Prescriptions / Home Meds: New nitroglycerin 0.4 % (w/w) ointment 1 inch TN BID Qty: 30 0RF No Action ondansetron 4 mg tablet,disintegrating 4 mg PO Q4H PRN (Reason: nausea and vomiting) 3 Days Qty: 6 0RF docusate sodium [Colace] 100 mg capsule 100 mg PO DAILY Qty: 20 0RF dicyclomine 20 mg tablet 20 mg PO TID PRN (Reason: abdominal pain) Qty: 7 0RF metoclopramide HCl [Reglan] 10 mg tablet 10 mg PO Q6H PRN (Reason: nausea and vomiting) 3 Days Qty: 7 0RF amlodipine 10 mg tablet 10 mg PO DAILY clonidine HCl 0.1 mg tablet Hold Instructions: dc lidocaine [RectiCare] 5 % cream 1 applic topical TID PRN (Reason: pain) Qty: 15 0RF meloxicam 15 mg tablet 15 mg PO DAILY PRN (Reason: pain ) Qty: 10 0RF Print Language: Hungarian Instructions: Anal Fissure (ED) Referrals: MELY BONILLA [Primary Care Provider] - 1 week
--- NOTE | 2024-03-13 12:55 | US_ITS ---
The [address] [address] Patient Name: HARLAN ARNOLD MRN: [id number] date: 1970 Sex: M Assigned Patient Location: ER Current Patient Location: ER Accession/Order Number: [id number] Exam Date: 03/13/2024 13:00 Report Date: 03/13/2024 13:58 At the request of: BOBY CURIEL Procedure: US right upper quadrant EXAMINATION: US right upper quadrant HISTORY: distended gall bladder on CT ; right upper quadrant pain COMPARISON: No relevant comparison available. TECHNIQUE: Transabdominal evaluation of the right upper quadrant. FINDINGS: LIVER: Normal size and echotexture. Color Doppler demonstrates patent hepatic veins. PORTAL VEIN: Duplex Doppler demonstrates normal hepatopetal flow pattern with flow velocity averaging 25 cm/s. GALLBLADDER: Completely and the gallbladder with 5.5 mm wall thickness. No appreciable stones or free fluid. Negative sonographic Vital's sign. BILIARY: No abnormal dilation or stones. Common bile duct diameter is within normal limits. PANCREAS: No visible mass, abnormal atrophy, or duct dilation. KIDNEY: No hydronephrosis. Contains a 2.4 cm benign-appearing cyst. No visible mass or stones. Size: 11.9 x 5.8 x 6.3 cm. US/US right upper quadrant IMPRESSION: 1. Wall thickening of gallbladder which is likely exacerbated by lack of distention. No stones, free fluid, or tenderness while imaging directly over the gallbladder. Consider follow-up ultrasound of gallbladder after patient has been fasting for 8-12 hours if symptoms remain clinically concerning. Electronically authenticated by: MANUEL TAM Date: 03/13/2024 13:58
[2024-03-13 14:28] VITALS: BP 145/68; PULSE 88; O2SAT 98
== END 2024-03-13 14:30 | disposition home or self-care (01) ==
PROVIDERS: Emergency Provider Emergency Medicine; PCP Family Medicine
DX: K60.2 Anal fissure, unspecified (principal)
CPT/HCPCS: 36415; 74176; 76705; 80053; 85025; 96374; 96375; 99285; J1885

== ENCOUNTER 2024-03-17 21:27 | Emergency (ER) | payer MEDICAID, SELFPAY ==
[2024-03-17 21:45] VITALS: BP 200/100; PULSE 104; TEMP 36.7; O2SAT 98; BMI 27.4
[2024-03-17 22:58] VITALS: BP 165/101
--- NOTE | 2024-03-17 23:10 | ED.GENADUL1 ---
HPI HPI - General Adult General Chief complaint: Abdominal Pain Stated complaint: RECTAL PAIN Time Seen by Provider: 03/17/24 22:58 Source: patient Mode of arrival: walk-in Limitations: no limitations History of Present Illness HPI narrative: patient presents complaining of pain from anal fissure. States he was hospitalized at [facility] 3 weeks ago because the pain of the rectal caused him to retain urine. Required placement of a starr and followup with urology. Seen here twice recently with same complaint of tenesmus rectal pain. States he was prescribed lidocaine and nitroglycerin cream neither paid for by his insurance. Now returns because of the tenesmus from rectal fissure. states the pain is raising his blood pressure Related Data Home Medications ?Medication ?Instructions ?Recorded ?Confirmed amlodipine 10 mg tablet 10 mg PO DAILY 03/11/24 03/11/24 clonidine HCl 0.1 mg tablet mg 03/11/24 Previous Rx's ?Medication ?Instructions ?Recorded dicyclomine 20 mg tablet 20 mg PO TID PRN abdominal pain #7 03/09/24 tabs docusate sodium 100 mg capsule 100 mg PO DAILY #20 caps 03/09/24 (Colace) metoclopramide HCl 10 mg tablet 10 mg PO Q6H PRN nausea and 03/09/24 (Reglan) vomiting 3 days #7 tabs ondansetron 4 mg disintegrating 4 mg PO Q4H PRN nausea and 03/09/24 tablet vomiting 3 days #6 tabs lidocaine 5 % topical cream 1 applic topical TID PRN pain #15 03/11/24 (RectiCare) grams meloxicam 15 mg tablet 15 mg PO DAILY PRN pain #10 tabs 03/11/24 nitroglycerin 0.4 % (w/w) rectal 1 inch IA BID #30 grams 03/13/24 ointment Allergies Allergy/AdvReac Type Severity Reaction Status Date / Time No Known Drug Allergies Allergy Verified 03/13/24 11:51 Opioid HPI Opioid Management Most Recent Opioid Data: Last Pain Scale 6 03/11/24 11:12 Review of Systems ROS Status of ROS 10 or more systems reviewed and unremarkable except as noted in history and below Exam Constitutional Vital Signs, click to edit/add: Last Vital Signs Temp 98.1 F 03/17/24 21:45 Pulse 78 03/18/24 00:51 Resp 18 03/18/24 00:51 BP 159/86 H 03/18/24 01:05 Pulse Ox 95 03/18/24 00:51 O2 Del Method Room Air 03/17/24 21:45 Common normals: no apparent distress, average body habitus, oriented x3, no limitations, healthy appearing, alert and well nourished [facility] Common normals: normocephalic and head/scalp atraumatic Respiratory Common normals: normal respiratory effort, no retractions, no use of accessory muscles and clear to auscultation bilaterally Cardio Common normals: regular rate, regular rhythm, S1 normal heart sound and S2 normal heart sound GI Common normals: Normal to inspection, nondistended, normoactive bowel sounds present, soft to palpation and non-tender Other: anal verge appears normal . no obvious fistula or mass. no hemorrhoids. Tenderness is mild-mod. no guarding. Extremity Common normals: normal to inspection and full ROM Neuro Common normals: oriented x3, CN's II-XII intact bilaterally and moves all extremities Psych Appearance: grossly normal Course Vital Signs Vital signs: Vital Signs Temperature 98.1 F 03/17/24 21:45 Pulse Rate 104 H 03/17/24 21:45 Respiratory Rate 18 03/17/24 21:45 Blood Pressure 200/100 H 03/17/24 21:45 Pulse Oximetry 98 03/17/24 21:45 Oxygen Delivery Method Room Air 03/17/24 21:45 Temperature 98.1 F 03/17/24 21:45 Pulse Rate 78 03/18/24 00:51 Respiratory Rate 18 03/18/24 00:51 Blood Pressure 159/86 H 03/18/24 01:05 Pulse Oximetry 95 03/18/24 00:51 Oxygen Delivery Method Room Air 03/17/24 21:45 Medical Decision Making MDM Narrative Medical decision making narrative: patient presents complaining of an anal fissure and tenesmus. exam without any obvious fistula or tenesmus. Anal verge appears normal . was tender but not fluctuant. labs returned with sodium 124. was 127 3 days ago. Unclear why he has hyponatremia. Does not take a diuretic . does take daily laxative miralax. Treated in the department with solumedrol, magnesium and 1L NS. anal pain improved. Advised to have his sodium level rechecked in the next couple of days Lab Data Labs: Lab Results 03/17/24 Range/Units 23:33 WBC 8.7 (4.0-11.0) 10^3/uL RBC 5.20 (4.70-6.10) 10^6/uL Hgb 16.7 (14.0-18.0) g/dL Hct 45.9 (42.0-54.0) % MCV 88.3 (80.0-94.0) fL MCH 32.1 (25.9-34.0) pg MCHC 36.4 H (29.9-35.2) g/dL RDW 10.9 L (11.0-15.0) % Plt Count 175 (150-450) 10^3/uL MPV 9.6 (9.5-13.5) fL Neut % (Auto) 75.2 H (43.0-75.0) % Lymph % (Auto) 13.7 L (20.5-60.0) % [place] % (Auto) 8.4 (1.7-12.0) % Eos % (Auto) 1.6 (0.9-7.0) % Baso % (Auto) 0.6 (0.2-2.0) % Neut # (Auto) 6.6 H (1.4-6.5) 10^3/uL Lymph # (Auto) 1.2 (1.2-3.8) 10^3/uL [place] # (Auto) 0.7 (0.3-0.8) 10^3/uL Eos # (Auto) 0.1 (0.0-0.7) 10^3/uL Baso # (Auto) 0.1 (0.0-0.1) 10^3/uL Abs Immat Gran (auto) 0.04 H (0.00-0.03) 10^3/uL Imm/Tot Granulo (auto) 0.5 (0.0-0.5) % Sodium 124 L* (136-145) mmol/L Potassium 3.4 L (3.5-5.1) mmol/L Chloride 88 L (98-107) mmol/L Carbon Dioxide 24.7 (21.0-32.0) mmol/L Anion Gap 14.7 BUN 9.0 (7.0-18.0) mg/dL Creatinine 0.74 (0.70-1.30) mg/dL Est GFR ( Amer) >60 (>=60) Est GFR (Non-Af Amer) >60 (>=60) BUN/Creatinine Ratio 12.2 Glucose 94 (74-106) mg/dL Calcium 8.7 (8.5-10.1) mg/dL Discharge Plan Discharge Stand Alone Forms: Portal Instructions Chief Complaint: Abdominal Pain Clinical Impression: Painful spasm of anus, Acute hyponatremia Patient Disposition: Home, Self-Care Prescriptions / Home Meds: No Action ondansetron 4 mg tablet,disintegrating 4 mg PO Q4H PRN (Reason: nausea and vomiting) 3 Days Qty: 6 0RF docusate sodium [Colace] 100 mg capsule 100 mg PO DAILY Qty: 20 0RF dicyclomine 20 mg tablet 20 mg PO TID PRN (Reason: abdominal pain) Qty: 7 0RF metoclopramide HCl [Reglan] 10 mg tablet 10 mg PO Q6H PRN (Reason: nausea and vomiting) 3 Days Qty: 7 0RF nitroglycerin 0.4 % (w/w) ointment 1 inch IA BID Qty: 30 0RF amlodipine 10 mg tablet 10 mg PO DAILY clonidine HCl 0.1 mg tablet Hold Instructions: dc lidocaine [RectiCare] 5 % cream 1 applic topical TID PRN (Reason: pain) Qty: 15 0RF meloxicam 15 mg tablet 15 mg PO DAILY PRN (Reason: pain ) Qty: 10 0RF Print Language: Citizen Of [place] Instructions: Hyponatremia (ED) Additional Instructions: important to have your sodium level recheck in the next 1-2 days Referrals: MELY BONILLA [Primary Care Provider] - 1 week Discharge Date/Time: 03/18/24 01:53
[2024-03-17 23:41] LABS: Basophils Absolute Auto 0.1 10^3/uL (0.0-0.1); Basophils Percent Auto 0.6 % (0.2-2.0); Eosinophils Absolute Auto 0.1 10^3/uL (0.0-0.7); Eosinophils Percent Auto 1.6 % (0.9-7.0); Hematocrit 45.9 % (42.0-54.0); Hemoglobin 16.7 g/dL (14.0-18.0); Immature Granulocytes Abs Auto 0.04 10^3/uL (0.00-0.03); Immature Granulocytes Pct Auto 0.5 % (0.0-0.5); Lymphocytes Absolute Auto 1.2 10^3/uL (1.2-3.8); Lymphocytes Percent Auto 13.7 % (20.5-60.0); Mean Corpuscular HGB Conc 36.4 g/dL (29.9-35.2); Mean Corpuscular Hemoglobin 32.1 pg (25.9-34.0); Mean Corpuscular Volume 88.3 fL (80.0-94.0); Mean Platelet Volume 9.6 fL (9.5-13.5); Monocytes Absolute Auto 0.7 10^3/uL (0.3-0.8); Monocytes Percent Auto 8.4 % (1.7-12.0); Neutrophils Absolute Auto 6.6 10^3/uL (1.4-6.5); Neutrophils Percent Auto 75.2 % (43.0-75.0); Platelet Count 175 10^3/uL (150-450); Red Cell Distribution Width 10.9 % (11.0-15.0); White Blood Count 8.7 10^3/uL (4.0-11.0)
[2024-03-17] MEDS: METHYLPREDNISOLONE SOD SUCC PF 125 MG/2 ML VIAL IVP (23:45)
[2024-03-17] MEDS: MAGNESIUM SULFATE IN WATER 2 GM/50 ML PREMIX IV (23:45)
[2024-03-17 23:51] LABS: Anion Gap 14.7; BUN Creatinine Ratio 12.2; Calcium 8.7 mg/dL (8.5-10.1); Carbon Dioxide 24.7 mmol/L (21.0-32.0); Chloride 88 mmol/L (98-107); Estimated GFR (African America >60 (>=60); Estimated GFR (Non-African Ame >60 (>=60); Glucose 94 mg/dL (74-106); Potassium 3.4 mmol/L (3.5-5.1)
[2024-03-18 00:04] LABS: Sodium 124 mmol/L (136-145)
[2024-03-18] MEDS: 0.9 % SODIUM CHLORIDE 1,000 ML 999 ML IV (00:45)
[2024-03-18 00:51] VITALS: BP 152/119; PULSE 78; O2SAT 95
[2024-03-18 01:05] VITALS: BP 159/86
[2024-03-18] MEDS: PREDNISONE 20 MG TABLET 40 MG PO (01:50)
== END 2024-03-18 01:53 | disposition home or self-care (01) ==
PROVIDERS: Emergency Provider Internal Medicine; PCP Family Medicine
DX: K59.4 Anal spasm (principal); E87.1 Hypo-osmolality and hyponatremia
CPT/HCPCS: 36415; 80048; 85025; 96365; 96375; 99284; J2919; J3475; J7512

== ENCOUNTER 2024-04-02 00:53 | Emergency (ER) | payer OTHER, SELFPAY ==
[2024-04-02] VITALS (27 sets, daily range): BP systolic 120–199; BP diastolic 66–124; PULSE 77–91; TEMP 36.9; O2SAT 97; BMI 28.9
--- OUTSIDE RECORDS SUMMARY | 2024-04-02 01:01 | XMS_ITS | CCD ---
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 Name Role Phone OSINOWO, OSIYEMI Unavailable Unavailable OSINOWO, OSIYEMI Unavailable Unavailable NADERER, MELQUIADES Unavailable Unavailable NADERER, MELQUIADES Unavailable Unavailable Mary King Unavailable Tawnya Andre Unavailable DR CISCO BLANC Primary Care Unavailable MARKER, DR JUARES Admitting Unavailable MARKER, DR JUARES Attending Unavailable MARKER, DR JUARES Consulting Unavailable ALANA MORROW Consulting Unavailable JOLANTA GARY Attending Unavailable CISCO BLANC Referring Unavailable CISCO BLANC Primary Care Unavailable DO Cisco Blanc Primary Care Provider MD Jennyfer Winkler Emergency Provider CISCO BLANC Primary Care Physician Didi Allen Attending Unavailable Didi Allen Attending Unavailable JENNYFER AUGUSTIN Admitting Unavailable JENNYFER AUGUSTIN Attending Unavailable CISCO BLANC Primary Care Unavailable JENNYFER AUGUSTIN Attending Unavailable JENNYFER AUGUSTIN Referring Unavailable CISCO BLANC Primary Care Unavailable JAME De Emergency Provider Cisco Blanc Primary Care Unavailable James De Attending Unavailable James De Admitting Unavailable Jennyfer Winkler Attending Unavailable Jennyfer Winkler Admitting Unavailable Cisco Blanc Primary Care Unavailable Allergies Allergy Classification Reported Allergen(s) Allergy Type Date of Onset Reaction(s) Facility (1 source) No Known Medication Allergies; Translations: [No Known Medication Allergies] Propensity to adverse reactions (disorder) [facility] Repository Medications Current Medications Medication Drug Class(es) Dates Sig (Normalized) Sig (Original) amLODIPine 5 mg oral tablet (5 sources) Dihydropyridine Calcium Channel Catherine Start: 08-19-2019 End: 03-03-2024 amLODIPine 5 mg Tab Refills(s) 0 Start Date: 02/02/24 Status: Ordered amLODIPine Besyl ate Active anastrozole 1 mg oral tablet (1 source) Aromatase Inhibitor Start: 03-03-2024 take 1 mg by mouth every week Anastrozole Active 1 MG PO .weekly March 03, 2024 12:00am cyclobenzaprine hydrochloride 10 mg oral tablet (1 source) Muscle Relaxant Start: 02-03-2021 take 1 tablet by mouth every eight hours Cyclobenzaprine HCl 10 MG 1 tablet at bedtime as needed Orally Three times a day for 7 days Jan, Active Enclomiphene (1 source) Start: 03-03-2024 take 1 capsule by mouth two times weekly Enclomiphene Active 1 CAP PO Twice a Week March 03, 2024 12:00am lidocaine 0.05 mg/mg medicated patch (1 source) Antiarrhythmic, Amide Local Anesthetic Start: 02-03-2021 Lidocaine 5 % 1 patch remove after 12 hours Externally Once a day for 7 days Jan, Active metoprolol tartrate 25 mg oral tablet (3 sources) beta-Adrenergic Catherine Start: 02-02-2024 take 1 tablet by mouth once daily Lopressor 25 mg oral tablet 25 mg = 1 tab(s), Oral, Daily, Refills(s) 0 Start Date: 02/02/24 Status: Ordered Metoprolol Tartr ate Active nitrofurantoin, macrocrystals 25 mg / nitrofurantoin, monohydrate 75 mg oral capsule (3 sources) Nitrofuran Antibacterial Start: 01-30-2024 End: 03-03-2024 nitrofurantoin macrocrystals-monohydrate 100 mg Cap Refills(s) 0 Start Date: 02/02/24 Status: Ordered Sertraline (2 sources) Serotonin Reuptake Inhibitor Sertraline HCl Activ e tamsulosin hydrochloride 0.4 mg oral capsule (2 sources) alpha-Adrenergic Catherine Start: 03-03-2024 take 0.4 mg by mouth once daily Tamsulosin Active 0.4 MG PO Daily March 03, 2024 12:00am Start: 02-02-2024 take 1 capsule by mo [facility] once daily tamsulosin 0.4 mg Cap 0.4 mg = 1 cap(s), Oral, Daily, # 30 cap(s), Refills(s) 3, Pharmacy: [id number], 173, cm, 02/02/24 11:34:00 EDT, Height/Length Dosing, 86.1, kg, 02/02/24 11:34:00 EDT, Weight Dosing Start Date: 02/02/24 Status: Ordered 1 ml testosterone cypionate 200 mg/ml injection (1 source) Androgen Start: 03-03-2024 inject 200 mg by intramuscular injection every week Testosterone Cypionate Active 200 MG IM every week March 03, 2024 12:00am Completed/Discontinued Medications Medication Drug Class(es) Dates Sig (Normalized) Sig (Original) ALPRAZolam 1 mg oral tablet (4 sources) Benzodiazepine Start: 08-19-2019 End: 03-03-2024 take 1 tablet by mouth three times daily Alprazolam (Xanax) 1 mg tablet Discontinued 1 MG PO Three times daily 9 3 August 19, 2019 7:00pm March 03, 2024 11:08am ALPRAZolam Activ e amitriptyline hydrochloride 50 mg oral tablet (4 sources) Tricyclic Antidepressant Start: 08-19-2019 End: 03-03-2024 take 50 mg by mouth once daily Amitriptyline Discontinued 50 MG PO Daily August 19, 2019 1:00am March 03, 2024 11:08am Amitriptyline HC l Active sofosbuvir / velpatasvir (2 sources) Hepatitis C Virus NS5A Inhibitor, Hepatitis C Virus Nucleotide Analog NS5B Polymerase Inhibitor Epclusa Not-Ta fernando Problems Active Problems Problem Classification Problem Date Documented Date Episodic/Chronic Abdominal pain (4 sources) Periumbilical pain; Translations: [PERIUMBILICAL PAIN] Onset: 03-26-20 Episodic Disorders of lipid metabolism (1 source) Hypercholesterolemia 02-02-2024 Chronic Diverticulosis and diverticulitis (2 sources) Diverticulosis of large intestine without perforation or abscess without bleeding; Translations: [Diverticulosis of intestine, part unspecified, without perforation or abscess without bleeding] Onset: 03-29-20 Chronic Essential hypertension (1 source) Hypertensive disorder 02-02-2024 Chronic Fluid and electrolyte disorders (2 sources) Hyperkalemia; Translations: [Dehydration] Onset: 08-30-19 17 03-03-2024 Episodic Genitourinary symptoms and ill-defined conditions (5 sources) Acute retention of urine ; Translations: [Other retention of urine] Onset: 02-02-20 24 01-30-2024 Episodic Hyperplasia of prostate (1 source) Benign prostatic hypertrophy without outflow obstruction; Translations: [Benign prostatic hyperplasia without lower urinary tract symptoms] Onset: 02-02-20 Chronic Other gastrointestinal disorders (1 source) Change in bowel habit; Translations: [Change in bowel habit] Onset: 02-06-20 Episodic Other gastrointestinal disorders (1 source) Acute constipation; Translations: [Constipation, unspecified] 03-03-2024 Episodic Other injuries and conditions due to external causes (1 source) Injury of head 02-02-2024 Episodic Other nutritional; endocrine; and metabolic disorders (1 source) Body mass index (BMI) 33.0-33.9, adult; Translations: [BODY MASS INDEX BMI 33.0-33.9 ADULT] Onset: 03-29-20 Chronic Other nutritional; endocrine; and metabolic disorders (1 source) Overweight; Translations: [OVERWEIGHT] Onset: 03-29-20 Episodic Schizophrenia and other psychotic disorders (2 sources) Paranoid disorder; Translations: [Delusional disorders] 08-03-2023 Chronic Substance-related disorders (4 sources) Nicotine dependence, cigarettes, uncomplicated; Translations: [Polysubstance abuse ] Onset: 03-29-20 22 08-03-2023 Chronic Unclassified (2 sources) Unknown / UNK(Unknown) Onset: 08-30-19 Unclassified (1 source) change in bowel habits Onset: 02-17-20 Past or Other Problems Problem Classification Problem Date Documented Da te Episodic/Chronic Acute and unspecified renal failure (4 sources) Acute kidney failure, unspecified; Translations: [ACUTE KIDNEY FAILURE, UNSPECIFIED] Onset: 08-30-2016 Episodic Hepatitis (2 sources) Viral hepatitis C; Translations: [Unspecified viral hepatitis C without hepatic coma] Episodic Immunizations and screening for infectious disease (2 sources) Contact with and (suspected) exposure to other viral communicable diseases Onset: 08-11-2021 Resolved: 09-01-2021 Episodic Other connective tissue disease (1 source) Rhabdomyolysis; Translations: [RHABDOMYOLYSIS] Onset: 08-30-2016 Episodic Viral infection (1 source) COVID-19 Onset: 09-01-2021 Resolved: 09-01-2021 Results Test Name Value Interpretation Reference Range Facility Automated basophil %Ordered By: James De on 03-03-2024 Basophils/100 WBC (Bld) 0.4 % Normal . [facility] Comment on above: Performed By: #### B MP, SCAN CBC #### [facility] [address] Automated basophil countOrde red By: James De on 03-03-2024 Basophils (Bld) [#/Vol] 0.0 10*3/uL Normal 0.0-0.2 [facility] Comment on above: Performed By: #### B MP, SCAN CBC #### [facility] [address] [place] [address] Automated blood monocyte cou ntOrdered By: James De on 03-03-2024 Monocytes (Bld) [#/Vol] 0.8 10*3/uL Normal 0.0-0.8 [facility] Comment on above: Performed By: #### B MP, SCAN CBC #### [facility] [address] [place] [address] Automated eosinophil %Ordere d By: James De on 03-03-2024 Eosinophils/100 WBC (Bld) 2.6 % Normal . [facility] Comment on above: Performed By: #### B MP, SCAN CBC #### [facility] [address] [place] [address] Automated eosinophil countOr dered By: James De on 03-03-2024 Eosinophils (Bld) [#/Vol] 0.2 10*3/uL Normal 0.0-0.45 [facility] Comment on above: Performed By: #### B MP, SCAN CBC #### [facility] [address] [place] [address] Automated monocyte %Ordered By: James De on 03-03-2024 Monocytes/100 WBC (Bld) 8.7 % Normal . [facility] Comment on above: Performed By: #### B MP, SCAN CBC #### [address] Automated neutrophil %Ordere d By: James De on 03-03-2024 Neutrophils/100 WBC (Bld) 74.9 % Normal . [facility] Comment on above: Performed By: #### B MP, SCAN CBC #### [address] Bacteria [Presence] in Urine by AutomatedOrdered By: Nish Davidson on 03-03-2024 Bacteria Auto Ql (U) None seen [HPF] None Seen [facility] Basic Metabolic Panelon 02-19 Creatinine Clr Calc Pharmacy 68.43 Normal [facility] Comment on above: Result Comment: PERF ORMED BY: [place] [address] PATHOLOGIST DINING ROOM ATTENDANT GAURAV CONWAY M.D. Performed By: #### B MP, SCAN CBC #### [address] GFR/1.73 sq M.predicted MDRD (S/P/Bld) [Vol rate/Area] mL/min/{1.73_m2} Normal [facility] Comment on above: Performed By: #### B MP, SCAN CBC #### [address] Bilirubin Test strip Ql (U)O rdered By: Nish Davidson on 03-03-2024 Bilirubin Ql (U) Negative Negative [facility] Calcium [Mass/volume] in Ser um or PlasmaOrdered By: James De on 03-03-2024 Calcium [Mass/Vol] 9.5 mg/dL Normal 8.6-10.3 [facility] Comment on above: Performed By: #### B MP, SCAN CBC #### [address] Carbon dioxide, total [Moles /volume] in Serum or PlasmaOrdered By: James De on 03-03-2024 CO2 [Moles/Vol] 25.3 mmol/L Normal 21.0-31.0 [facility] Comment on above: Performed By: #### B MP, SCAN CBC #### [facility] [address] [place] [address] [place] Chloride [Moles/volume] in S dereje or PlasmaOrdered By: James De on 03-03-2024 Chloride [Moles/Vol] 102 mmol/L Normal 98-107 [facility] Comment on above: Performed By: #### B MP, SCAN CBC #### [facility] [address] [place] [address] [place] Color of Urine by AutoOrdere d By: Nish Davidson on 03-03-2024 Color (U) Yellow Normal Yellow [facility] Comment on above: Order Comment: Name Collection Type:: Voided Performed By: #### A DDONUAPLUS ####[address] Creatinine [Mass/volume] in Serum or PlasmaOrdered By: James De on 03-03-2024 Creatinine [Mass/Vol] 1.18 mg/dL Normal 0.70-1.30 [facility] Comment on above: Performed By: #### B MP, SCAN CBC #### [facility] [address] [place] [address] [place] Dipstick and Microscopicon 0 03-03-2024 Bacteria,Urine None Seen Normal None Seen [facility] Comment on above: Order Comment: Name Collection Type:: Voided Performed By: #### A DDONUAPLUS ####[place] [id number] [place] Bilirubin,Urine Negative Normal Negative [facility] Comment on above: Order Comment: Name Collection Type:: Voided Performed By: #### A DDONUAPLUS ####[place] [id number] [place] Glucose Ql (U) Normal Normal Normal [facility] Comment on above: Order Comment: Name Collection Type:: Voided Performed By: #### A DDONUAPLUS ####[place] [id number] [place] Hyaline Casts,Urine 0-8 Normal 0-[address] [facility] Comment on above: Order Comment: Name Collection Type:: Voided Performed By: #### A DDONUAPLUS ####[address] [address] [place] Mucus,Urine 1+ Critically abnormal [facility] Comment on above: Order Comment: Name Collection Type:: Voided Result Comment: PERF ORMED BY: [facility] [address] [place] [address] PATHOLOGIST DINING ROOM ATTENDANT GAURAV CONWAY M.D. Performed By: #### A DDONUAPLUS ####[address] [address] [place] Nitrite,Urine Negative Normal Negative [facility] Comment on above: Order Comment: Name Collection Type:: Voided Performed By: #### A DDONUAPLUS ####[address] [address] [facility] Occult Blood,Urine Negative Normal Negative [facility] Comment on above: Order Comment: Name Collection Type:: Voided Result Comment: PERF ORMED BY: [facility] [address] [place] [address] PATHOLOGIST DINING ROOM ATTENDANT GAURAV CONWAY M.D. Performed By: #### A DDONUAPLUS ####[address] [address] [facility] Protein,Urine Trace High Negative [facility] Comment on above: Order Comment: Name Collection Type:: Voided Performed By: #### A DDONUAPLUS ####[address] [address] [facility] RBC,Urine None Seen Normal 0-4 [facility] Comment on above: Order Comment: Name Collection Type:: Voided Performed By: #### A DDONUAPLUS ####[address] [address] [facility] Specificy [place],Urine 1.015 Normal 1.001-1.030 [facility] Comment on above: Order Comment: Name Collection Type:: Voided Performed By: #### A DDONUAPLUS ####[place] [id number] [address] Squamous Epithelial Cell,Urine 1-2 Normal 0-2 [facility] Comment on above: Order Comment: Name Collection Type:: Voided Performed By: #### A DDONUAPLUS ####[facility] Urobilinogen,Urine Normal Normal Normal [facility] Comment on above: Order Comment: Name Collection Type:: Voided Performed By: #### A DDONUAPLUS ####[facility] Urothelial Cells 1-2 High 0-1 [facility] Comment on above: Order Comment: Name Collection Type:: Voided Performed By: #### A DDONUAPLUS ####[facility] WBC,Urine 1-2 Normal 0-4 [facility] Comment on above: Order Comment: Name Collection Type:: Voided Performed By: #### A DDONUAPLUS ####[address] Epithelial cells.squamous [# /area] in Urine sediment by Automated countOrdered By: Nish Davidson on 03-03-2024 Epithelial cells.squamous Auto (Urine sed) [#/Area] 1-2 [HPF] 0-2 [facility] Erythrocyte distribution wid th [Ratio] by Automated countOrdered By: James De on 03-03-2024 Erythrocyte distribution width (RBC) [Ratio] 12.6 % Normal 12.0-14.8 [facility] Comment on above: Performed By: #### B MP, SCAN CBC #### [facility] [address] Erythrocytes [#/area] in Uri ne sediment by Automated countOrdered By: Nish Davidson on 03-03-2024 RBC Auto (Urine sed) [#/Area] None seen [HPF] 0-4 [facility] Erythrocytes [#/volume] in B lood by Automated countOrdered By: James De on 07-13-2024 RBC (Bld) [#/Vol] 5.64 10*6/uL High 3.90-5.60 [facility] Comment on above: Performed By: #### B MP, SCAN CBC #### [facility] [address] Glucose [Mass/volume] in Ser um or PlasmaOrdered By: James De on 03-03-2024 Glucose [Mass/Vol] 83 mg/dL Normal 70-100 [facility] Comment on above: ADA recommended refe rence rangeRandom Glucose Reference Range is dependent on time and content of last meal. Glucose of more than 200 mg/dL in a nonstressed, ambulatory subject supports the diagnosis of Diabetes Mellitus. Result Comment: [place] om Glucose Reference Range is dependent on time and content of last meal. Glucose of more than 200 mg/dL in a nonstressed, ambulatory subject supports the diagnosis of Diabetes Mellitus. ADA recommended reference range Performed By: #### B MP, SCAN CBC #### [facility] [address] Glucose [Mass/volume] in Uri ne by Test stripOrdered By: Nish Davidson on 03-03-2024 Glucose Test strip (U) [Mass/Vol] Normal mg/dL Normal [facility] Hematocrit [Volume Fraction] of Blood by Automated countOrdered By: James De on 03-03-2024 Hematocrit (Bld) [Volume fraction] 52.6 % High 38.8-50.0 [facility] Comment on above: Performed By: #### B MP, SCAN CBC #### [address] Hemoglobin Test strip Ql (U) Ordered By: Nish Davidson on 03-03-2024 Hemoglobin Ql (U) Negative Negative [facility] Hemoglobin [Mass/volume] in BloodOrdered By: James De on 03-03-2024 Hemoglobin (Bld) [Mass/Vol] 18.5 g/dL High 13.0-17.0 [facility] Comment on above: Performed By: #### B MP, SCAN CBC #### [facility] [address] [place] [address] [place] Hyaline casts [#/area] in Ur ine sediment by Automated countOrdered By: Nish Davidson on 03-03-2024 Hyaline casts Auto (Urine sed) [#/Area] 0-8 [LPF] 0-8 [facility] Ketones [Presence] in Urine by Test stripOrdered By: Nish Davidson on 03-03-2024 Ketones Ql (U) 2+ High Negative [facility] Comment on above: Order Comment: Name Collection Type:: Voided Performed By: #### A DDONUAPLUS ####[id number] [address] Leukocyte esterase [Presence ] in Urine by Test stripOrdered By: Nish Davidson on 03-03-2024 Leukocyte esterase Test strip Ql (U) Negative Normal Negative [facility] Comment on above: Order Comment: Name Collection Type:: Voided Performed By: #### A DDONUAPLUS ####[facility] [place] [address] [place] Leukocytes [#/area] in Urine sediment by Automated countOrdered By: Nish Davidson on 03-03-2024 WBC Auto (Urine sed) [#/Area] 1-2 [HPF] 0-4 [facility] Leukocytes [#/volume] correc ernst for nucleated erythrocytes in Blood by Automated counOrdered By: James De on 03-03-2024 WBC corrected for nucl RBC Auto (Bld) [#/Vol] 9.0 10*3/uL 4.1-10.5 [facility] Leukocytes [#/volume] in Blo od by Automated countOrdered By: James De on 03-03-2024 WBC (Bld) [#/Vol] 9.0 10*3/uL Normal 4.1-10.5 [facility] Comment on above: Performed By: #### B MP, SCAN CBC #### [facility] [address] [place] [address] [place] Lymphocytes [#/volume] in Bl ood by Automated countOrdered By: James De on 03-03-2024 Lymphocytes (Bld) [#/Vol] 1.2 10*3/uL Normal 1.00-4.8 [facility] Comment on above: Performed By: #### B MP, SCAN CBC #### [facility] [address] [place] [address] Lymphocytes/100 leukocytes i n Blood by Automated countOrdered By: James De on 03-03-2024 Lymphocytes/100 WBC (Bld) 13.4 % Normal . [facility] Comment on above: Performed By: #### B MP, SCAN CBC #### [facility] [address] [place] [address] MCH [Entitic mass] by Automa ernst countOrdered By: James De on 03-03-2024 MCH (RBC) [Entitic mass] 32.8 pg Normal 27.5-35.2 [facility] Comment on above: Performed By: #### B MP, SCAN CBC #### [facility] [address] [place] [address] MCHC Auto (RBC) [Mass/Vol]Or dered By: James De on 03-03-2024 MCHC (RBC) [Mass/Vol] 35.1 g/dL 32.5-35.6 [facility] MCV [Entitic volume] by Auto mated countOrdered By: James De on 03-03-2024 MCV (RBC) [Entitic vol] 93.4 fL Normal 83.5-101 [facility] Comment on above: Performed By: #### B MP, SCAN CBC #### [facility] [address] [place] [address] Monocyte distribution width [Entitic volume] in Blood by AutomatedOrdered By: James De on 03-03-2024 Monocyte distribution width Auto (Bld) [Entitic vol] 17.08 % 0.00-20.00 [facility] Mucus [Presence] in Urine by AutomatedOrdered By: Nish Davidson on 03-03-2024 Mucus Auto Ql (U) 1+ [LPF] Abnormal [facility] Neutrophils [#/volume] in Bl ood by Automated countOrdered By: James De on 03-03-2024 Neutrophils (Bld) [#/Vol] 6.7 10*3/uL Normal 1.8-7.7 [facility] Comment on above: Performed By: #### B MP, SCAN CBC #### [facility] [address] Nitrite Test strip Ql (U)Ord ered By: Nish Davidson on 03-03-2024 Nitrite Ql (U) Negative Negative [facility] No Panel InformationOrdered By: James De on 03-03-2024 Estimated GFR (CKD-EPI) > 60.0 mL/Min [facility] Creatinine Clearance (Chem 68.43 [facility] Nucleated erythrocytes [Pres ence] in Blood by Automated countOrdered By: James De on 03-03-2024 Nucleated RBC Auto Ql (Bld) 0.4 /100{WBC} 0-0.5 [facility] Platelet adequacy [Presence] in Blood by Light microscopyOrdered By: James De on 03-03-2024 Platelets LM Ql (Bld) Normal Normal [facility] Platelet mean volume [Entiti c volume] in Blood by Automated countOrdered By: James De on 03-03-2024 Platelet mean volume (Bld) [Entitic vol] 8.4 fL Normal 6.6-10.1 [facility] Comment on above: Performed By: #### B MP, SCAN CBC #### [facility] [address] Platelet morphology finding [Identifier] in BloodOrdered By: James De on 03-03-2024 Platelet morphology finding Nom (Bld) Normal Normal [facility] Platelets [#/volume] in Bloo d by Automated countOrdered By: James De on 03-03-2024 Platelets (Bld) [#/Vol] 207 10*3/uL Normal 150-450 [facility] Comment on above: Performed By: #### B MP, SCAN CBC #### [facility] [address] Potassium [Moles/volume] in Serum or PlasmaOrdered By: James De on 03-03-2024 Potassium [Moles/Vol] 3.7 mmol/L Normal 3.5-5.1 [facility] Comment on above: Performed By: #### B MP, SCAN CBC #### [address] Protein Test strip (U) [Mass /Vol]Ordered By: Nish Davidson on 03-03-2024 Protein (U) [Mass/Vol] Trace mg/dL High Negative [facility] RBC morphologyOrdered By: Asad De on 03-03-2024 RBC morphology finding Nom (Bld) Normal Normal Normal [facility] Comment on above: Performed By: #### B MP, SCAN CBC #### [address] Scan and CBCon 03-03-2024 Mean Corpuscular HGB Conc 35.1 g/dL Normal 32.5-35.6 [facility] Comment on above: Performed By: #### B MP, SCAN CBC #### [address] Monocytes/100 WBC (Bld) 17.08 % Normal 0.00-20.00 [facility] Comment on above: Performed By: #### B MP, SCAN CBC #### [address] NRBC% 0.4 /100{WBC} Normal 0-0.5 [facility] Comment on above: Performed By: #### B MP, SCAN CBC #### [facility] [address] [place] [address] Platelet Estimate Normal Normal Normal [facility] Comment on above: Performed By: #### B MP, SCAN CBC #### [address] Platelet Morphology Normal Normal Normal [facility] Comment on above: Result Comment: PERF ORMED BY: [place] [address] PATHOLOGIST DINING ROOM ATTENDANT GAURAV CONWAY M.D. Performed By: #### B MP, SCAN CBC #### [facility] [address] [place] [address] Serum or plasma anion gap de terminationOrdered By: James De on 03-03-2024 Anion gap [Moles/Vol] 12.4 mmol/L Normal 6.0-15.0 [facility] Comment on above: Performed By: #### B MP, SCAN CBC #### [facility] [address] Sodium [Moles/volume] in Ser um or PlasmaOrdered By: James De on 03-03-2024 Sodium [Moles/Vol] 136 mmol/L Normal 136-145 [facility] Comment on above: Performed By: #### B MP, SCAN CBC #### [facility] [address] Specific gravity Test strip (U) [Rel density]Ordered By: Nish Davidson on 03-03-2024 Specific gravity (U) [Rel density] 1.015 1.001-1.030 [facility] Transitional cells [#/area] in Urine by Computer assisted methodOrdered By: Nish Davidson on 03-03-2024 Transitional cells Computer assisted (U) [#/Area] 1-2 [HPF] High 0-1 [facility] Urea nitrogen [Mass/volume] in Serum or PlasmaOrdered By: James De on 03-03-2024 Urea nitrogen [Mass/Vol] 8 mg/dL Normal 7-25 [facility] Comment on above: Performed By: #### B MP, SCAN CBC #### [facility] [address] Urine appearanceOrdered By: Nish Davidson on 03-03-2024 Appearance (U) Clear Normal Clear [facility] Comment on above: Order Comment: Name Collection Type:: Voided Performed By: #### A DDONUAPLUS ####[facility] Urobilinogen Test strip (U) [Mass/Vol]Ordered By: Nish Davidson on 03-03-2024 Urobilinogen (U) [Mass/Vol] Normal mg/dL Normal [facility] XR KUBon 03-03-2024 XR KUB [facility] [address] [place] [address] [place] [address] XRay Report Signed Patient: Harlan Russell MR#: [id number] 2 : 1970 Acct:[id number] Age/Sex: 53 / M ADM Date: 03/03/24 Loc: ER Room: Type: [facility] ER Attending Dr: Copies to: James De PA-C Ordering Provider: James De PA-C Date of Service: 03/03/24 XR/XR KUB: constipation XR KUB 03/03/2024 1:55 PM SIGNS AND SYMPTOMS: Difficulty urinating, lower abdominal pain PROTOCOL: Frontal radiographs of the abdomen and pelvis COMPARISON: 01/29/2024 FINDINGS: There is a nonobstructive bowel gas pattern. There is moderate enlargement of stool in the right hemicolon suspicious for constipation. No radiodense renal, ureteral, or bladder stones. Degenerative changes are noted throughout the visualized thoracolumbar spine, sacroiliac joints, and hips. Vascular calcifications are present in the pelvis. XR/XR KUB IMPRESSION: No bowel obstruction or free air. There is a moderate to large amount of stool in the right hemicolon suggesting constipation. Impression dictated by: Dante Lisa M.D.03/03/2024 2:38 PM Dictation Location: [place] [address] Transcribed By: [facility] 03/03/24 1438 Dictated By: Dante Lisa II, MD 03/03/24 1437 Signed By: 03/03/24 1438 Normal [facility] pH of Urine by Test stripOrd ered By: Nish Davidson on 03-03-2024 pH (U) 6.0 [pH] Normal 5.0-9.0 [facility] Comment on above: Order Comment: Name Collection Type:: Voided Performed By: #### A DDONUAPLUS ####[facility] [id number] [place] [address] [facility] Surgical Pathologyon 024 [facility]ology [facility] Comment on above: Result Comment: [facility] [address] [place] [address] Surgical Pathology Consultation Patient Name:HARLAN RUSSELL:1970 (Age: 53)Gender:MTaken:4Reported:02/22/2024hysician(s):Jennyfer Augustin MD ([phone])Copy To: Rec. #:[id number]: #[id number] Final Pathologic Diagnosis 1. Colon polyp 55cm: Hyperplastic polyp. 2. Colon polyp 35cm: Tubular adenoma. Report Electronically Signed Out st02/22/2024Keren Bee MD Interpretation performed at [facility], [address] [place], [address], License number: [id number]. Clinical History Change in bowel habits. Gross Description 1. Received in formalin labeled, CATALINA, 55 cm is a mccray-richardson 0.3 cm soft tissue.. The specimen is filtered and entirely submitted in a single cassette. (1, ns, [id number], m8) SM 2. Received in formalin labeled, CATALINA, 35 cm is a pale richardson 0.3 cm the specimen is filtered and entirely submitted in a single cassette. (1, ns, [id number], m8) SM [facility]/02/20/2024GR Specimen(s) Received 1: Colon polyp 55cm 2: Colon polyp 35cm Fee Codes(s): 1; 48125 2; 10970 Patient Educationon 02-07-20 Patient Education Oncology Cancer Screening for Men A cancer screening is a test or exam that checks for cancer. Your health care provider will recommend specific cancer screenings based on your age, medical history (including risk factors), and family history of cancer. Work with your health care provider to create a cancer screening schedule that protects your health. Who should have screening? All men should be considered for screening of certain cancers, including colorectal cancer, prostate cancer, lung cancer, and skin cancer. Your health care provider may recommend screenings for other types of cancer if: ? You had cancer before. ? You have a family member with cancer. ? You have abnormal genes that could increase the risk of cancer. ? You have risk factors for certain cancers, such as current or past use of tobacco products, or being overweight. When you should be screened for cancer depends on: ? Your age. ? Your medical history and your family's medical history. ? Certain lifestyle factors, such as smoking or other use of tobacco products. ? Environmental exposure, such as to asbestos. How is screening done? Colorectal cancer All adults should have screenings starting at age 45 and continuing until age 75. Your health care provider may recommend screening before age 45. You will have tests every 1?10 years, depending on your results and the type of screening test. People at increased risk should start screening at an earlier age. Talk with your health care provider about which screening test is right for you and how often you should be screened. Colorectal cancer screening looks for cancer or for growths called polyps that often form before cancer starts. Tests to look for cancer or polyps include: ? Colonoscopy or flexible sigmoidoscopy. For these procedures, a flexible tube with a small camera is inserted into the rectum. ? CT colonography. This test uses X-rays and a contrast dye to check the colon for polyps. If a polyp is found, you may need to have a colonoscopy so the polyp can be located and removed. Tests to look for cancer in the stool (feces) include: ? Guaiac-based fecal occult blood test (FOBT). This test can find blood in stool. It can be done at home with a kit. ? Fecal immunochemical test (FIT). This test can find blood in stool. For this test, you will need to collect stool samples at home. ? Stool DNA test. This test looks for blood in stool and any changes in DNA that can lead to colon cancer. For this test, you will need to collect a stool sample at home and send it to a lab. Prostate cancer Prostate cancer screening for men with average risk may start at age 50. Men with risk factors may need to be screened earlier, at ages 40?45. Talk with your health care provider about whether screening is right for you and, if so, how often you should be screened. Prostate cancer screening is done with blood tests and a digital rectal exam. During this exam, a health care provider uses a gloved finger to check prostate size. You may need to be screened for prostate cancer if: ? You have risk factors for prostate cancer, such as being or having a close family member with prostate cancer. ? You have had gene changes or a genetic condition that was passed on to you from a parent (inherited). These gene changes or genetic conditions include BRCA1 or BRCA2 gene mutations or Sierra syndrome. ? You have symptoms of prostate cancer, such as problems urinating or problems getting or keeping an erection (erectile dysfunction). When you have been screened for prostate cancer, future screening may be recommended based on the results of your blood tests. Lung cancer Lung cancer screening is done with a CT scan that looks for abnormal changes in the lungs. Discuss lung cancer screening with your health care provider if you are 50?80 years old and if any of the following apply to you: ? You currently smoke. ? You used to smoke heavily. ? You have a smoking history of 1 pack of cigarettes a day for 20 years or 2 packs a day for 10 years. ? You have quit smoking within the past 15 years. You may need to be screened every year if you smoke heavily or if you used to smoke. Skin cancer Skin cancer screening is done by checking the skin for unusual moles or spots and any changes in existing moles. Your health care provider should check your skin for signs of skin cancer at every physical exam. You should check your skin every month and tell your health care provider right away if anything looks unusual. Men with a sjvtxj-auic-vikowv risk for skin cancer may want to see a aviation medicine specialist (rn oncology research) for an annual body check. What are the benefits of screening? Cancer screening is done to look for cancer in the very early stages, before it spreads and becomes harder to treat and before you would start to notice symptoms. Finding cancer early improves the chances of successful treatment. It ma (more content not included)... Normal [facility] Urology Office/Clinic Noteon 02-07-2024 Urology Office/Clinic Note Chief Complaint Pt is here for urinary retention [facility] ER f/u HPI Staff Harlan is a 53 y.o. male here for [facility] ER f/u, urinary retention. Pt presented to [facility] on 01/29/24 due to inability to urinate. PVR done @ [facility] showed 900cc of urine, Murray placed. Pt states he was not discharged w/ Murray. PVR 108mL. Dysuria: denies Incomplete bladder emptying: yes Hematuria: denies Frequency: denies Urgency: denies Nocturia: 3x a night Stream: steady stream sometimes weak Leaking: denies Post void dripping: denies Wearing pads/ Depends: denies Urge incontinence: denies Stress incontinence: denies Incontinence without Sensory Awareness: denies Abdominal pain: denies Flank pain: denies Sexual complaints: _ History of Present Illness I have reviewed and verified the staff HPI to be accurate for this encounter. Portions of this record may have been created with voice recognition artificial intelligence software, specifically [employer], [employer] and or [employer]. Substitutions may have occurred due to the inherent limitations of voice recognition and artificial intelligence software. Review of Systems PHQ Score Initial Depression Screen Score: 0 SCORE Physical Exam Vitals & Measurements T: 37 ?C(Temporal Artery) HR: 77(Peripheral) RR: 16 BP: 136/81 HT: 68 in HT: 173 cm WT: 86.1 kg WT: 189.42 lb BMI: 28.77 General: Well developed, well nourished, in no acute distress. Genitourinary: Flank Pain: none. Bladder: nonpalpable. Assessment/Plan BEATRIZ 15 Completed review of external ER note, labs, Imaging. 1. Urinary retention (R33.9: Retention of urine, unspecified) [facility] 01/29/24 - detoxing from benzos, unable to have BM or urinating although feeling urge to. CT neg. Murray placeds w/ 900 cc output. Refused to be discharged w/ cath in place. See #2. 2. BPH (benign prostatic hyperplasia) (N40.0: Benign prostatic hyperplasia without lower urinary tract symptoms) IPSS 10 - moderate sxs of BPH. Pt has mixed feelings about urinary sxs at this time. Most bothersome to him is feeling of incomplete emptying and frequency. He does admit that some of these bothersome urinary sxs tend to be associated w/ his frequent BMs. PVR today 108 ml We discussed male urologic anatomy including the prostate and how this is likely contributing to his urinary symptoms. We discussed how potential prostate obstruction affects long-term bladder health and compliance. We discussed alpha-catherine medications to help with urinary symptoms, possible side effects. I did advise patient that these medications do not protect the bladder while alleviating some urinary symptoms. In order to assess degree of bladder outlet obstruction and bladder health, discussed further evaluation with cystoscopy. Pt declines scheduling cysto at this time. Will start tamsulosin 0.4 mg QD. Pt to contact office if experiencing any intolerable SEs. - f/u 8 wks w/ PVR 3. Prostate cancer screening (Z12.5: Encounter for screening for malignant neoplasm of prostate) Unable to find record of PSA on [facility]. 4. Frequent bowel movements (R19.4: Change in bowel habit) Pt notes he can have a BM several times/day, but denies feeling of constipation. CT at the time of ER visit does not indicate significant stool burden. Notes he had a colonoscopy about 5-6 yrs ago which was recommended to repeat in 5 yrs. Pt to f/u w/ GI regarding stools. Follow-up No qualifying data available Patient Education Cancer Screening for Men Benign Prostatic Hyperplasia Acute Urinary Retention, Male Problem List/Past Medical History Ongoing BPH (benign prostatic hyperplasia) Drug dependence Frequent bowel movements Head injury High cholesterol HTN (hypertension) Prostate cancer screening Urinary retention Historical No qualifying data Procedure/Surgical History Appendectomy, Colonoscopy. Medications amLODIPine 5 mg Tab Lopressor 25 mg oral tablet, 25 mg= 1 tab(s), Oral, Daily nitrofurantoin macrocrystals-mono hydrate 100 mg Cap tamsulosin 0.4 mg Cap, 0.4 mg= 1 cap(s), Oral, Daily, 3 refills Allergies No Known Medication Allergies Social History Substance Abuse Current, benzodiazepine, 02/02/2024 Tobacco Former smoker, quit more than 30 days ago Tobacco Use:. Never Smokeless Tobacco Use:. Cigarettes, 02/02/2024 Family History Drug dependence: Mother and Father. Hypertension: Mother. Immunizations Vaccine Date Status influenza virus vaccine, inactivated 06/20/2021 Recorded SARS-CoV-2 (COVID-19) mRNA BNT-162b2 vax 06/20/2021 Recorded SARS-CoV-2 (COVID-19) mRNA BNT-162b2 vax 12/08/2020 Recorded SARS-CoV-2 (COVID-19) mRNA BNT-162b2 vax 11/18/2020 Recorded influenza virus vaccine, inactivated 04/06/2020 Recorded influenza virus vaccine, inactivated 06/07/2019 Recorded diphtheria/pertuss is, acel/tetanus adult 10/27/2013 Recorded Normal [facility] Comment on above: Result Comment: Elec tronically Signed By: JOSEPH Allen APRN, Didi Martin\.br\Date and Time Signed: 02/07/24 23:06 EDT ED Note-Physicianon 02-03-20 ED Note-Physician [id number]#1.00TIFF [facility] Formson 02-03-2024 Forms [id number]#1.00TIFF [facility] Screenson 02-03-2024 Screens [id number]#1.00TIFF [facility] Screens [id number]#1.00TIFF [facility] Ambulatory Visit Summaryon 0 02-02-2024 Ambulatory Visit Summary HARLAN RUSSELL :1970 Visit Date:02/02/2024 Ambulatory Visit Instructions Your Diagnosis Urinary retention Your Care Team Attending Physician - JOSEPH Allen APRN, Didi Martin Primary Care Physician - CISCO BLANC DO This Is Your Medications List amlodipine (amLODIPine 5 mg Tab) metoprolol (Lopressor 25 mg oral tablet) nitrofurantoin (nitrofurantoin macrocrystals-mono hydrate 100 mg Cap) Procedures Performed Appendectomy, Colonoscopy. Discharge Vitals Temperature (Temporal Artery) 37 ?C Heart Rate (Peripheral) 77 Respiratory Rate 16 Blood Pressure 136/81 Height 173 cm Height 68 in Weight 86.1 kg Weight 189.42 lb BMI 28.77 Medications What How Much When Instructions Unchanged amlodipine (amLODIPine 5 mg Tab) Unchanged metoprolol (Lopressor 25 mg oral tablet) 1 Tablets By Mouth Every day Unchanged nitrofurantoin (nitrofurantoin macrocrystals-mono hydrate 100 mg Cap) Allergies No Known Medication Allergies Problems Ongoing - Any problem that you are currently receiving treatment for. Drug dependence Head injury High cholesterol HTN (hypertension) Urinary retention Patient Survey You may receive a survey via text or e-mail asking about your office visit. Please share your experience with us by completing your survey. We appreciate your feedback and thank you for choosing us for your care. [facility] Ambulatory Visit Summary HARLAN RUSSELL :1970 Visit Date:02/02/2024 Ambulatory Visit Instructions Your Diagnosis Urinary retention Your Care Team Attending Physician - JOSEPH Allen APRN, Didi Martin Primary Care Physician - CISCO BLANC DO This Is Your Medications List amlodipine (amLODIPine 5 mg Tab) metoprolol (Lopressor 25 mg oral tablet) nitrofurantoin (nitrofurantoin macrocrystals-mono hydrate 100 mg Cap) Procedures Performed Appendectomy, Colonoscopy. Discharge Vitals Temperature (Temporal Artery) 37 ?C Heart Rate (Peripheral) 77 Respiratory Rate 16 Blood Pressure 136/81 Height 173 cm Height 68 in Weight 86.1 kg Weight 189.42 lb BMI 28.77 Medications What How Much When Instructions Unchanged amlodipine (amLODIPine 5 mg Tab) Unchanged metoprolol (Lopressor 25 mg oral tablet) 1 Tablets By Mouth Every day Unchanged nitrofurantoin (nitrofurantoin macrocrystals-mono hydrate 100 mg Cap) Allergies No Known Medication Allergies Problems Ongoing - Any problem that you are currently receiving treatment for. Drug dependence Head injury High cholesterol HTN (hypertension) Urinary retention Patient Survey You may receive a survey via text or e-mail asking about your office visit. Please share your experience with us by completing your survey. We appreciate your feedback and thank you for choosing us for your care. [facility] CT abdomen pelvis wo conon 0 01-30-2024 CT abdomen pelvis wo con [facility] [place] [address] CT Scan Report Signed Patient: Harlan Russell MR#: [id number] 2 : 1970 Acct:[id number] Age/Sex: 53 / M ADM Date: 01/29/24 Loc: ER Room: Type: [facility] ER Attending Dr: Copies to: Jennyfer Winkler MD Ordering Provider: Jennyfer Winkler MD Date of Service: 01/29/24 CT/CT abdomen pelvis wo con: abdominal pain CT ABDOMEN AND PELVIS WITHOUT CONTRAST COMPARISON: None CLINICAL DATA: Lower abdominal pain and difficulty urinating. Spiral images were obtained through the abdomen and pelvis without contrast. This CT exam was performed using one or more following dose reduction techniques: Automated exposure control, adjustment of the mA and/or kV according to patient size, or use of iterative reconstruction technique. Limited cuts through the lung bases show no contributory findings. Evaluation of the intra-abdominal organs is slightly limited by the absence of contrast. No calcified gallstones are present. The liver, spleen, pancreas and adrenal glands show no acute findings. A cyst is visualized at the upper pole of the right kidney. There are no renal calculi or hydronephrosis. No ureteral dilatation or stones are seen. Mild atherosclerotic plaque is visualized at the aorta and iliac arteries. Small lymph nodes are present. No ascites is noted. There are normal caliber small bowel loops. There is stool at the right colon. The left colon is underdistended. Left-sided colonic diverticula are noted. There is an umbilical hernia containing fat. Degenerative changes are seen at the spine, greatest at the lower facets. There is also hypertrophy at the SI joints. Images through the pelvis show normal caliber small bowel loops. The appendix is surgically absent. The distal colon is underdistended. There are additional colonic diverticula, without associated active inflammation. The urinary bladder contains a Murray catheter and is not adequately distended for assessment. There are calcifications within the prostate. No ascites is seen. Inguinal lymph nodes are present with fatty carlos. There are minor degenerative changes at the hips. CT/CT abdomen pelvis wo con IMPRESSION: RIGHT RENAL CYST. NO BOWEL OR URINARY TRACT OBSTRUCTION. DIVERTICULOSIS. UMBILICAL HERNIA CONTAINING FAT. LIMITED EVALUATION OF THE URINARY BLADDER DUE TO THE PRESENCE OF A MURRAY CATHETER. Impression dictated by: Anni Whitley M.D.01/30/2024 8:58 AM Dictation Location: [place] [address] Transcribed By: [facility] 01/30/24857 Dictated By: Anni Whitley MD 01/30/24 0851 Signed By: 01/30/24857 Normal [facility] Alanine aminotransferase [En zymatic activity/volume] in Serum or PlasmaOrdered By: Jennyfer Winkler on 01-29-2024 ALT [Catalytic activity/Vol] 24 U/L Normal [facility] Comment on above: Performed By: #### H EPATIC, LIPASE, DIFF CBC, GLADYS, BMP #### [facility] [address] Albumin [Mass/volume] in Ser um or Plasma by Bromocresol green (BCG) dye binding methoOrdered By: Jennyfer Winkler on 01-29-2024 Albumin BCG dye [Mass/Vol] 4.9 g/dL 3.5-5.7 [facility] Alkaline phosphatase [Enzyma tic activity/volume] in Serum or PlasmaOrdered By: Jennyfer Winkler on 01-29-2024 ALP [Catalytic activity/Vol] 96 U/L Normal 34-104 [facility] Comment on above: Performed By: #### H EPATIC, LIPASE, DIFF CBC, GLADYS, BMP #### [facility] [address] Amylase [Enzymatic activity/ volume] in Serum or PlasmaOrdered By: Jennyfer Winkler on 01-29-2024 Amylase [Catalytic activity/Vol] 47 U/L Normal 29-103 [facility] Comment on above: Performed By: #### H EPATIC, LIPASE, DIFF CBC, GLADYS, BMP #### [facility] [address] Aspartate aminotransferase [ Enzymatic activity/volume] in Serum or PlasmaOrdered By: Jennyfer Winkler on 01-29-2024 AST [Catalytic activity/Vol] 21 U/L Normal 13-39 [facility] Comment on above: Performed By: #### H EPATIC, LIPASE, DIFF CBC, GLADYS, BMP #### [address] Basic Metabolic Panelon 06-0 Creatinine Clr Calc Pharmacy 83.32 Normal [facility] Comment on above: Performed By: #### H EPATIC, LIPASE, DIFF CBC, GLADYS, BMP #### [facility] [address] GFR/1.73 sq M.predicted MDRD (S/P/Bld) [Vol rate/Area] mL/min/{1.73_m2} Normal [facility] Comment on above: Performed By: #### H EPATIC, LIPASE, DIFF CBC, GLADYS, BMP #### [facility] [address] [place] [address] [place] Basophils Auto (Bld) [#/Vol] Ordered By: Jennyfer Winkler on 01-29-2024 Basophils (Bld) [#/Vol] N/A F [facility] Basophils/100 WBC Auto (Bld) Ordered By: Jennyfer Winkler on 01-29-2024 Basophils/100 WBC (Bld) N/A F [facility] Bilirubin Test strip Ql (U)O rdered By: Jennyfer Winkler on 01-29-2024 Bilirubin Ql (U) Negative Negative [facility] Bilirubin.direct [Mass/volum e] in Serum or PlasmaOrdered By: Jennyfer Winkler on 01-29-2024 Bilirubin.direct [Mass/Vol] 0.10 mg/dL 0.03-0.18 [facility] Bilirubin.total [Mass/volume ] in Serum or PlasmaOrdered By: Jennyfer Winkler on 01-29-2024 Bilirubin [Mass/Vol] 0.8 mg/dL Normal 0.3-1.0 [facility] Comment on above: Performed By: #### H EPATIC, LIPASE, DIFF CBC, GLADYS, BMP #### [facility] [address] [place] [address] [place] Calcium [Mass/volume] in Ser um or PlasmaOrdered By: Jennyfer Winkler on 01-29-2024 Calcium [Mass/Vol] 10.2 mg/dL Normal 8.6-10.3 [facility] Comment on above: Performed By: #### H EPATIC, LIPASE, DIFF CBC, GLADYS, BMP #### [facility] [address] [place] [address] [place] Carbon dioxide, total [Moles /volume] in Serum or PlasmaOrdered By: Jennyfer Winkler on 01-29-2024 CO2 [Moles/Vol] 26.4 mmol/L Normal 21.0-31.0 [facility] Comment on above: Performed By: #### H EPATIC, LIPASE, DIFF CBC, GLADYS, BMP #### [facility] [address] [place] [address] [place] Chloride [Moles/volume] in S dereje or PlasmaOrdered By: Jennyfer Winkler on 01-29-2024 Chloride [Moles/Vol] 98 mmol/L Normal 98-107 [facility] Comment on above: Performed By: #### H EPATIC, LIPASE, DIFF CBC, GLADYS, BMP #### [address] Color of Urine by AutoOrdere d By: Jennyfer Winkler on 01-29-2024 Color (U) Colorless Normal Yellow [facility] Comment on above: Order Comment: Name Collection Type:: Murray Catheter Performed By: #### U A #### [address] Creatinine [Mass/volume] in Serum or PlasmaOrdered By: Jennyfer Winkler on 01-29-2024 Creatinine [Mass/Vol] 1.07 mg/dL Normal 0.70-1.30 [facility] Comment on above: Performed By: #### H EPATIC, LIPASE, DIFF CBC, GLADYS, BMP #### [address] Diff and CBCon 01-29-2024 Giant Platelet Tally 1 /100{WBC} Normal [facility] Comment on above: Performed By: #### H EPATIC, LIPASE, DIFF CBC, GLADYS, BMP #### [address] Mean Corpuscular HGB Conc 35.0 g/dL Normal 32.5-35.6 [facility] Comment on above: Performed By: #### H EPATIC, LIPASE, DIFF CBC, GLADYS, BMP #### [address] Monocytes/100 WBC (Bld) 18.41 % Normal 0.00-20.00 [facility] Comment on above: Result Comment: PERF ORMED BY: [place] [address] PATHOLOGIST DINING ROOM ATTENDANT AGURAV CONWAY M.D. Performed By: #### H EPATIC, LIPASE, DIFF CBC, GLADYS, BMP #### [address] Platelet Estimate Normal Normal Normal [facility] Comment on above: Performed By: #### H EPATIC, LIPASE, DIFF CBC, GLADYS, BMP #### [address] [place] [address] [place] Platelet Morphology Normal Normal Normal [facility] Comment on above: Result Comment: PERF ORMED BY: [place] [address] PATHOLOGIST DINING ROOM ATTENDANT GAURAV CONWAY M.D. Performed By: #### H EPATIC, LIPASE, DIFF CBC, GLADYS, BMP #### [address] Reactive Lymphocytes 6 % Normal 0-12 [facility] Comment on above: Performed By: #### H EPATIC, LIPASE, DIFF CBC, GLADYS, BMP #### [address] Eosinophils Auto (Bld) [#/Vo l]Ordered By: Jennyfer Winkler on 01-29-2024 Eosinophils (Bld) [#/Vol] N/A [facility] Eosinophils/100 WBC Auto (Bl d)Ordered By: Jennyfer Winkler on 01-29-2024 Eosinophils/100 WBC (Bld) N/A [facility] Eosinophils/100 leukocytes i n Blood by Manual countOrdered By: Jennyfer Winkler on 01-29-2024 Eosinophils/100 WBC (Bld) 5 % High 1-3 [facility] Comment on above: Performed By: #### H EPATIC, LIPASE, DIFF CBC, GLADYS, BMP #### [address] Erythrocyte distribution wid th [Ratio] by Automated countOrdered By: Jennyfer Winkler on 01-29-2024 Erythrocyte distribution width (RBC) [Ratio] 12.1 % Normal 12.0-14.8 [facility] Comment on above: Performed By: #### H EPATIC, LIPASE, DIFF CBC, GLADYS, BMP #### [address] Erythrocytes [#/volume] in B lood by Automated countOrdered By: Jennyfer Winkler on 01-29-2024 RBC (Bld) [#/Vol] 5.83 10*6/uL High 3.90-5.60 [facility] Comment on above: Performed By: #### H EPATIC, LIPASE, DIFF CBC, GLADYS, BMP #### [facility] [address] [place] [address] [place] Giant platelets/100 leukocyt es [Ratio] in Blood by Manual countOrdered By: Jennyfer Winkler on 01-29-2024 Giant platelets/100 WBC Manual cnt (Bld) [Ratio] 1 /100{WBC} [facility] Glucose [Mass/volume] in Ser um or PlasmaOrdered By: Jennyfer Winkler on 01-29-2024 Glucose [Mass/Vol] 103 mg/dL High 70-100 [facility] Comment on above: ADA recommended refe rence rangeRandom Glucose Reference Range is dependent on time and content of last meal. Glucose of more than 200 mg/dL in a nonstressed, ambulatory subject supports the diagnosis of Diabetes Mellitus. Result Comment: [place] om Glucose Reference Range is dependent on time and content of last meal. Glucose of more than 200 mg/dL in a nonstressed, ambulatory subject supports the diagnosis of Diabetes Mellitus. ADA recommended reference range Performed By: #### H EPATIC, LIPASE, DIFF CBC, GLADYS, BMP #### [facility] [address] Glucose [Mass/volume] in Uri ne by Test stripOrdered By: Jennyfer Winkler on 01-29-2024 Glucose Test strip (U) [Mass/Vol] Normal mg/dL Normal [facility] Hematocrit [Volume Fraction] of Blood by Automated countOrdered By: Jennyfer Winkler on 01-29-2024 Hematocrit (Bld) [Volume fraction] 54.1 % High 38.8-50.0 [facility] Comment on above: Performed By: #### H EPATIC, LIPASE, DIFF CBC, GLADYS, BMP #### [facility] [address] Hemoglobin Test strip Ql (U) Ordered By: Jennyfer Winkler on 01-29-2024 Hemoglobin Ql (U) Negative Negative [facility] Hemoglobin [Mass/volume] in BloodOrdered By: Jennyfer Winkler on 01-29-2024 Hemoglobin (Bld) [Mass/Vol] 18.9 g/dL High 13.0-17.0 [facility] Comment on above: Performed By: #### H EPATIC, LIPASE, DIFF CBC, GLADYS, BMP #### [facility] [address] Hepatic Panelon 01-29-2024 Albumin [Mass/Vol] 4.9 g/dL Normal 3.5-5.7 [facility] Comment on above: Performed By: #### H EPATIC, LIPASE, DIFF CBC, GLADYS, BMP #### [facility] [address] Bilirubin,Indirect 0.7 mg/dL Normal [facility] Comment on above: Performed By: #### H EPATIC, LIPASE, DIFF CBC, GLADYS, BMP #### [facility] [address] Bilirubin.indirect [Mass/Vol] 0.10 mg/dL Normal 0.03-0.18 [facility] Comment on above: Performed By: #### H EPATIC, LIPASE, DIFF CBC, GLADYS, BMP #### [address] Ketones [Presence] in Urine by Test stripOrdered By: Jennyfer Winkler on 01-29-2024 Ketones Ql (U) Negative Normal Negative [facility] Comment on above: Order Comment: Name Collection Type:: Murray Catheter Performed By: #### U A #### [address] Leukocyte esterase [Presence ] in Urine by Test stripOrdered By: Jennyfer Winkler on 01-29-2024 Leukocyte esterase Test strip Ql (U) Negative Normal Negative [facility] Comment on above: Order Comment: Name Collection Type:: Murray Catheter Performed By: #### U A #### [address] Leukocytes [#/volume] correc ernst for nucleated erythrocytes in Blood by Automated counOrdered By: Jennyfer Winkler on 01-29-2024 WBC corrected for nucl RBC Auto (Bld) [#/Vol] 6.8 10*3/uL 4.1-10.5 [facility] Leukocytes [#/volume] in Blo od by Automated countOrdered By: Jennyfer Winkler on 01-29-2024 WBC (Bld) [#/Vol] 6.8 10*3/uL Normal 4.1-10.5 [facility] Comment on above: Performed By: #### H EPATIC, LIPASE, DIFF CBC, GLADYS, BMP #### [facility] [address] [place] [address] Lipase [Enzymatic activity/v olume] in Serum or PlasmaOrdered By: Jennyfer Winkler on 01-29-2024 Lipase [Catalytic activity/Vol] 29.0 U/L Normal 11.0-82.0 [facility] Comment on above: Result Comment: PERF ORMED BY: [place] [address] PATHOLOGIST DINING ROOM ATTENDANT GAURAV CONWAY M.D. Performed By: #### H EPATIC, LIPASE, DIFF CBC, GLADYS, BMP #### [address] Lymphocytes Auto (Bld) [#/Vo l]Ordered By: Jennyfer Winkler on 01-29-2024 Lymphocytes (Bld) [#/Vol] N/A [facility] Lymphocytes/100 WBC Auto (Bl d)Ordered By: Jennyfer Winkler on 01-29-2024 Lymphocytes/100 WBC (Bld) N/A [facility] Lymphocytes/100 leukocytes i n Blood by Manual countOrdered By: Jennyfer Winkler on 01-29-2024 Lymphocytes/100 WBC (Bld) 28 % Normal 18-42 [facility] Comment on above: Performed By: #### H EPATIC, LIPASE, DIFF CBC, GLADYS, BMP #### [facility] [address] [place] [address] MCH [Entitic mass] by Automa renst countOrdered By: Jennyfer Winkler on 01-29-2024 MCH (RBC) [Entitic mass] 32.4 pg Normal 27.5-35.2 [facility] Comment on above: Performed By: #### H EPATIC, LIPASE, DIFF CBC, GLADYS, BMP #### [facility] [address] [place] [address] MCHC Auto (RBC) [Mass/Vol]Or dered By: Jennyfer Winkler on 01-29-2024 MCHC (RBC) [Mass/Vol] 35.0 g/dL 32.5-35.6 [facility] MCV [Entitic volume] by Auto mated countOrdered By: Jennyfer Winkler on 01-29-2024 MCV (RBC) [Entitic vol] 92.7 fL Normal 83.5-101 F [facility] Comment on above: Performed By: #### H EPATIC, LIPASE, DIFF CBC, GLADYS, BMP #### [facility] [address] Manual blood segmented neutr ophils/100 leukocytesOrdered By: Jennyfer Winkler on 01-29-2024 Segmented neutrophils/100 WBC (Bld) 58 % Normal 50-70 [facility] Comment on above: Performed By: #### H EPATIC, LIPASE, DIFF CBC, GLADYS, BMP #### [address] Monocyte distribution width [Entitic volume] in Blood by AutomatedOrdered By: Jennyfer Winkler on 01-29-2024 Monocyte distribution width Auto (Bld) [Entitic vol] 18.41 % 0.00-20.00 [facility] Monocytes Auto (Bld) [#/Vol] Ordered By: Jennyfer Winkler on 01-29-2024 Monocytes (Bld) [#/Vol] N/A [facility] Monocytes/100 WBC Auto (Bld) Ordered By: Jennyfer Winkler on 01-29-2024 Monocytes/100 WBC (Bld) N/A [facility] Monocytes/100 leukocytes in Blood by Manual countOrdered By: Jennyfer Winkler on 01-29-2024 Monocytes/100 WBC (Bld) 4 % Normal 2-11 [facility] Comment on above: Performed By: #### H EPATIC, LIPASE, DIFF CBC, GLADYS, BMP #### [place] [address] [place] Neutrophils Auto (Bld) [#/Vo l]Ordered By: Jennyfer Winkler on 01-29-2024 Neutrophils (Bld) [#/Vol] N/A [facility] Neutrophils/100 WBC Auto (Bl d)Ordered By: Jennyfer Winkler on 01-29-2024 Neutrophils/100 WBC (Bld) N/A [facility] Nitrite Test strip Ql (U)Ord ered By: Jennyfer Winkler on 01-29-2024 Nitrite Ql (U) Negative Negative [facility] No Panel InformationOrdered By: Jennyfer Winkler on 01-29-2024 Estimated GFR (CKD-EPI) > 60.0 mL/Min [facility] Creatinine Clearance (Chem 83.32 [facility] Nucleated erythrocytes [Pres ence] in Blood by Automated countOrdered By: Jennyfer Winkler on 01-29-2024 Nucleated RBC Auto Ql (Bld) N/A [facility] Platelet adequacy [Presence] in Blood by Light microscopyOrdered By: Jennyfer Winkler on 01-29-2024 Platelets LM Ql (Bld) Normal Normal [facility] Platelet mean volume [Entiti c volume] in Blood by Automated countOrdered By: Jennyfer Winkler on 01-29-2024 Platelet mean volume (Bld) [Entitic vol] 8.1 fL Normal 6.6-10.1 [facility] Comment on above: Performed By: #### H EPATIC, LIPASE, DIFF CBC, GLADYS, BMP #### [facility] [address] Platelet morphology finding [Identifier] in BloodOrdered By: Jennyfer Winkler on 01-29-2024 Platelet morphology finding Nom (Bld) Normal Normal [facility] Platelets [#/volume] in Bloo d by Automated countOrdered By: Jennyfer Winkler on 01-29-2024 Platelets (Bld) [#/Vol] 245 10*3/uL Normal 150-450 [facility] Comment on above: Performed By: #### H EPATIC, LIPASE, DIFF CBC, GLADYS, BMP #### [facility] [address] [place] [address] [place] Potassium [Moles/volume] in Serum or PlasmaOrdered By: Jennyfer Winkler on 01-29-2024 Potassium [Moles/Vol] 3.9 mmol/L Normal 3.5-5.1 [facility] Comment on above: Performed By: #### H EPATIC, LIPASE, DIFF CBC, GLADYS, BMP #### [facility] [address] [place] [id number] [place] Protein Test strip (U) [Mass /Vol]Ordered By: Jennyfer Winkler on 01-29-2024 Protein (U) [Mass/Vol] Negative Negative [facility] Protein [Mass/volume] in Ser um or PlasmaOrdered By: Jennyfer Winkler on 01-29-2024 Protein [Mass/Vol] 8.0 g/dL Normal 6.4-8.9 [facility] Comment on above: Performed By: #### H EPATIC, LIPASE, DIFF CBC, GLADYS, BMP #### [address] RBC morphologyOrdered By: Ella Winkler on 01-29-2024 RBC morphology finding Nom (Bld) Normal Normal Normal [facility] Comment on above: Performed By: #### H EPATIC, LIPASE, DIFF CBC, GLADYS, BMP #### [address] Serum globulin measurement b y calculation (mass/volume)Ordered By: Jennyfer Winkler on 01-29-2024 Globulin (S) [Mass/Vol] 3.1 g/dL Normal [facility] Comment on above: Performed By: #### H EPATIC, LIPASE, DIFF CBC, GLADYS, BMP #### [facility] [address] [place] [address] Serum or plasma albumin/glob ulin mass ratioOrdered By: Jennyfer Winkler on 01-29-2024 Albumin/Globulin [Mass ratio] 1.6 {ratio} Normal [facility] Comment on above: Performed By: #### H EPATIC, LIPASE, DIFF CBC, GLADYS, BMP #### [address] Serum or plasma anion gap de terminationOrdered By: Jennyfer Winkler on 01-29-2024 Anion gap [Moles/Vol] 10.5 mmol/L Normal 6.0-15.0 [facility] Comment on above: Performed By: #### H EPATIC, LIPASE, DIFF CBC, GLADYS, BMP #### [address] Serum or plasma non-glucuron idated bilirubin measurement (mass/volume)Ordered By: Jennyfer Winkler on 01-29-2024 Bilirubin.indirect [Mass/Vol] 0.7 mg/dL [facility] Sodium [Moles/volume] in Ser um or PlasmaOrdered By: Jennyfer Winkler on 01-29-2024 Sodium [Moles/Vol] 131 mmol/L Low 136-145 [facility] Comment on above: Performed By: #### H EPATIC, LIPASE, DIFF CBC, GLADYS, BMP #### [address] Specific gravity Test strip (U) [Rel density]Ordered By: Jennyfer Winkler on 01-29-2024 Specific gravity (U) [Rel density] 1.003 1.001-1.030 [facility] Urea nitrogen [Mass/volume] in Serum or PlasmaOrdered By: Jennyfer Winkler on 01-29-2024 Urea nitrogen [Mass/Vol] 6 mg/dL Low 7-25 [facility] Comment on above: Performed By: #### H EPATIC, LIPASE, DIFF CBC, GLADYS, BMP #### [address] Urinalysison 01-29-2024 Bilirubin,Urine Negative Normal Negative [facility] Comment on above: Order Comment: Name Collection Type:: Murray Catheter Performed By: #### U A #### [address] Glucose Ql (U) Normal Normal Normal [facility] Comment on above: Order Comment: Name Collection Type:: Murray Catheter Performed By: #### U A #### [place] [address] [place] Nitrite,Urine Negative Normal Negative [facility] Comment on above: Order Comment: Name Collection Type:: Murray Catheter Performed By: #### U A #### [address] Occult Blood,Urine Negative Normal Negative [facility] Comment on above: Order Comment: Name Collection Type:: Murray Catheter Result Comment: PERF ORMED BY: [address] [place] [address] PATHOLOGIST DINING ROOM ATTENDANT GAURAV CONWAY M.D. Performed By: #### U A #### [facility] [address] Protein,Urine Negative Normal Negative [facility] Comment on above: Order Comment: Name Collection Type:: Murray Catheter Performed By: #### U A #### [address] Specificy [place],Urine 1.003 Normal 1.001-1.030 [facility] Comment on above: Order Comment: Name Collection Type:: Murray Catheter Performed By: #### U A #### [address] Urobilinogen,Urine Normal Normal Normal [facility] Comment on above: Order Comment: Name Collection Type:: Murray Catheter Performed By: #### U A #### [address] Urine appearanceOrdered By: Jennyfer Winkler on 01-29-2024 Appearance (U) Clear Normal Clear [facility] Comment on above: Order Comment: Name Collection Type:: Murray Catheter Performed By: #### U A #### [address] Urobilinogen Test strip (U) [Mass/Vol]Ordered By: Jennyfer Winkler on 01-29-2024 Urobilinogen (U) [Mass/Vol] Normal mg/dL Normal [facility] Variant lymphocytes/100 WBC Manual cnt (Bld)Ordered By: Jennyfer Winkler on 01-29-2024 Variant lymphocytes/100 WBC (Bld) 6 % 0-12 [facility] pH of Urine by Test stripOrd ered By: Jennyfer Winkler on 01-29-2024 pH (U) 7.5 [pH] Normal 5.0-9.0 [facility] Comment on above: Order Comment: Name Collection Type:: Murray Catheter Performed By: #### U A #### [address] CBC AUTO DIFFon 03-26-2022 BASO # 0.1 103/ul Normal 0.0-0.1 [facility] Comment on above: Performed By: #### C BC #### [facility] [address] [address] [address] Pravin Travis Basophils/100 WBC (Bld) 0.7 % Normal 0.2-2.0 [facility] Comment on above: Performed By: #### C BC #### [facility] [address] [place] [address] Dr. Pravin Travis EO # 0.6 103/ul Normal 0.0-0.7 [facility] Comment on above: Performed By: #### C BC #### [facility] [address] [place] [address] Dr. Pravin Travis Eosinophils/100 WBC (Bld) 7.4 % Critically high 0.9-7.0 [facility] Comment on above: Performed By: #### C BC #### [facility] [address] [place] [address] Dr. Pravin Travis Erythrocyte distribution width (RBC) [Ratio] 12.3 % Normal 11.0-15.0 [facility] Comment on above: Performed By: #### C BC #### [facility] [address] [place] [address] Dr. Pravin Travis Hematocrit (Bld) [Volume fraction] 47.2 % Normal 42.0-54.0 [facility] Comment on above: Performed By: #### C BC #### [facility] [address] [place] [address] Dr. Pravin Travis Hemoglobin (Bld) [Mass/Vol] 16.2 g/dL Normal 14.0-18.0 [facility] Comment on above: Performed By: #### C BC #### [facility] [address] [place] [address] Dr. Pravin Travis IG # 0.03 10e3/ul Normal 0.00-0.03 [facility] Comment on above: Performed By: #### C BC #### [facility] [address] [place] [address] Dr. Pravin Travis IG % 0.4 % Normal 0.0-0.5 [facility] Comment on above: Performed By: #### C BC #### [facility] [address] [place] [address] Dr. Pravin Travis LYMPH # 2.1 103/ul Normal 1.2-3.8 [facility] Comment on above: Performed By: #### C BC #### [facility] [address] [place] [address] Dr. Pravin Travis Lymphocytes/100 WBC (Bld) 24.3 % Normal 20.5-60.0 [facility] Comment on above: Performed By: #### C BC #### [facility] [address] [place] [address] Dr. Pravin Travis MANUAL DIFF REQ NO Normal [facility] Comment on above: Performed By: #### C BC #### [facility] [address] [place] [address] Dr. Pravin Travis MCH (RBC) [Entitic mass] 32.6 pg Normal 25.9-34.0 [facility] Comment on above: Performed By: #### C BC #### [facility] [address] [place] [address] Dr. Pravin Travis MCHC (RBC) [Mass/Vol] 34.3 g/dL Normal 29.9-35.2 [facility] Comment on above: Performed By: #### C BC #### [facility] [address] [place] [address] Dr. Pravin Travis MCV (RBC) [Entitic vol] 95.0 fL Critically high 80.0-94 .0 [facility] Comment on above: Performed By: #### C BC #### [facility] [address] [place] [address] Dr. Pravin Travis MONO # 0.8 103/ul Normal 0.3-0.8 [facility] Comment on above: Performed By: #### C BC #### [facility] [address] [place] [address] Dr. Pravin Travis Monocytes/100 WBC (Bld) 9.7 % Normal 1.7-12.0 [facility] Comment on above: Performed By: #### C BC #### [facility] [address] [place] [address] Dr. Pravin Travis NEUT # 4.9 103/ul Normal 1.4-6.5 [facility] Comment on above: Performed By: #### C BC #### [facility] [address] [place] [address] Dr. Pravin Travis Neutrophils/100 WBC (Bld) 57.5 % Normal 43.0-75.0 [facility] Comment on above: Performed By: #### C BC #### [facility] [address] [place] [address] Dr. Pravin Travis Platelet mean volume (Bld) [Entitic vol] 10.4 fL Normal 9.5-13.5 [facility] Comment on above: Performed By: #### C BC #### [facility] [address] [place] [address] Dr. Pravin Travis PLT 215 103/ul Normal 150-450 [facility] Comment on above: Performed By: #### C BC #### [facility] [address] [place] [address] Dr. Pravin Travis RBC 4.97 106/ul Normal 4.70-6.10 [facility] Comment on above: Performed By: #### C BC #### [facility] [address] [place] [address] Dr. Pravin Travis WBC 8.6 103/ul Normal 4.0-11.0 [facility] Comment on above: Performed By: #### C BC #### [facility] [address] [place] [address] ABD/PELV W CONon 03-26-20 CT ABD/PELV W CON EXAMINATION: CT ABD/PELV W CON HISTORY: GENERALIZED ABDOMINAL PAIN COMPARISON: None. TECHNIQUE: CT of the abdomen and pelvis with intravenous contrast Dose reduction techniques were achieved by using automated exposure control and/or adjustment of mA and/or kV according to patient size and/or use of iterative reconstruction technique. FINDINGS: TUBES AND IMPLANTS: None. LOWER CHEST: Unremarkable ABDOMEN and PELVIS ABDOMINAL WALL AND SOFT TISSUES: Unremarkable. BONES: No suspicious lesions. Multilevel degenerative changes of the spine. ARTERIES: Mild aortoiliac calcifications without aneurysm VEINS: Unremarkable. LYMPH NODES: Unremarkable. PERITONEUM/ RETROPERITONEUM: Unremarkable. BOWEL: Sigmoid diverticula without inflammatory changes. APPENDIX: Not identified. No inflammatory changes in its expected location. LIVER: Unremarkable. GALLBLADDER: Unremarkable. BILE DUCTS: Not dilated SPLEEN: Unremarkable. PANCREAS: Unremarkable. ADRENALS: Unremarkable. KIDNEYS/ URETERS: Unremarkable. REPRODUCTIVE ORGANS: Coarse prostatic calcification URINARY BLADDER: Unremarkable. IMPRESSION: Sigmoid diverticulosis without evidence of diverticulitis. Electronically authenticated by: ALANA MORROW Date: 2022-03-26 01:45 Normal [facility] URINE PROFILEon 2 Bilirubin Ql (U) Negative Normal NEGATIVE [facility] Comment on above: Performed By: #### E RUR #### [facility] [address] [place] [address] Dr. Pravin Travis Clarity (U) SL CLOUDY Abnormal CLEAR [facility] Comment on above: Performed By: #### E RUR #### [facility] [address] [place] [address] Dr. Pravin Travis Color (U) LT. YELLOW Normal YELLOW [facility] Comment on above: Performed By: #### E RUR #### [facility] [address] [place] [address] Dr. Pravin TURK A micrscopic examination will be performed if indicated. Normal [facility] Comment on above: Performed By: #### E RUR #### [facility] [address] [place] [address] Dr. Pravin Travis Glucose Ql (U) Negative Normal NEGATIVE [facility] Comment on above: Performed By: #### E RUR #### [facility] [address] [place] [address] Dr. Pravin Travis Hemoglobin Ql (U) Negative Normal NEGATIVE [facility] Comment on above: Performed By: #### E RUR #### [facility] [address] [place] [address] Dr. Pravin Travis Ketones Ql (U) Negative Normal NEGATIVE [facility] Comment on above: Performed By: #### E RUR #### [facility] [address] [place] [address] Dr. Pravin Travis LEUKOCYTES Negative Normal NEGATIVE [facility] Comment on above: Performed By: #### E RUR #### [facility] [address] [place] [address] Dr. Pravin Travis Nitrite Ql (U) Negative Normal NEGATIVE [facility] Comment on above: Performed By: #### E RUR #### [facility] [address] [place] [address] Dr. Pravin Travis pH (U) 7.5 [pH] Normal 5-9 [facility] Comment on above: Performed By: #### E RUR #### [facility] [address] [place] [address] Dr. Pravin Travis SPEC GRAVITY 1.015 Normal 1.005-<=1.02 5 [facility] Comment on above: Performed By: #### E RUR #### [facility] [address] [place] [address] Dr. Pravin Travis UA PROTEIN Negative Normal NEGATIVE/ TRACE [facility] Comment on above: Performed By: #### E RUR #### [facility] [address] [place] [address] Dr. Pravin Travis UR MICRO IND NOT INDICATED Normal [facility] Comment on above: Performed By: #### E RUR #### [facility] [address] [place] [address] Dr. Pravin Travis Urobilinogen Qn (U) 0.2 {Katie'U}/dL Normal 0.2 - 1. 0 [facility] Comment on above: Performed By: #### E RUR #### [facility] [address] [place] [address] Dr. Pravin Travis PROF 14(COMP METB)on 022 Albumin [Mass/Vol] 4.3 g/dL Normal 3.4-5.0 [facility] Comment on above: Performed By: #### C MP #### [facility] [address] [place] [address] Dr. Pravin Travis Albumin/Globulin [Mass ratio] 1.3 {ratio} Normal [facility] Comment on above: Performed By: #### C MP #### [facility] [address] [address] [address] Pravin Travis ALP [Catalytic activity/Vol] 92 U/L Normal 46-116 [facility] Comment on above: Performed By: #### C MP #### [facility] [address] [address] [address] Pravin Travis ALT [Catalytic activity/Vol] 31 U/L Normal 16-63 [facility] Comment on above: Performed By: #### C MP #### [facility] [address] [address] [address] Pravin Travis Anion gap [Moles/Vol] 10.9 mmol/L Normal Th [facility] Comment on above: Performed By: #### C MP #### [facility] [address] [place] [address] Dr. Pravin Travis AST [Catalytic activity/Vol] 31 U/L Normal 15-37 [facility] Comment on above: Performed By: #### C MP #### [facility] [address] [place] [address] Dr. Pravin Travis Bilirubin [Mass/Vol] 0.5 mg/dL Normal 0.2-1.0 [facility] Comment on above: Performed By: #### C MP #### [facility] [address] [place] [address] Dr. Pravin Travis Calcium [Mass/Vol] 9.3 mg/dL Normal 8.5-10.1 [facility] Comment on above: Performed By: #### C MP #### [facility] [address] [address] [address] Pravin Travis Chloride [Moles/Vol] 103 mmol/L Normal 98-107 [facility] Comment on above: Performed By: #### C MP #### [facility] [address] [address] [address] Pravin Travis CO2 [Moles/Vol] 29.8 mmol/L Normal 21.0-32.0 [facility] Comment on above: Performed By: #### C MP #### [facility] [address] [address] [address] Pravin Travis Creatinine [Mass/Vol] 1.22 mg/dL Normal 0.70-1.30 [facility] Comment on above: Performed By: #### C MP #### [facility] [address] [address] [address] Pravin Travis EGFR-AF TAIWANESE >60 Normal >=60 [facility] Comment on above: Performed By: #### C MP #### [facility] [address] [address] [address] Pravin Travis EGFR-NON AF TAIWANESE >60 Normal >=60 [facility] Comment on above: Performed By: #### C MP #### [facility] [address] [place] [address] Dr. Pravin Travis Globulin (S) [Mass/Vol] 3.4 g/dL Normal [facility] Comment on above: Performed By: #### C MP #### [facility] [address] [place] [address] Dr. Pravin Travis Glucose [Mass/Vol] 91 mg/dL Normal 74-106 [facility] Comment on above: Performed By: #### C MP #### [facility] [address] [place] [address] Dr. Pravin Travis Potassium [Moles/Vol] 3.7 mmol/L Normal 3.5-5.1 [facility] Comment on above: Performed By: #### C MP #### [facility] [address] [place] [address] Dr. Pravin Travis Protein [Mass/Vol] 7.7 g/dL Normal 6.4-8.2 [facility] Comment on above: Performed By: #### C MP #### [facility] [address] [place] [address] Dr. Pravin Travis Sodium [Moles/Vol] 140 mmol/L Normal 136-145 [facility] Comment on above: Performed By: #### C MP #### [facility] [address] [place] [address] Dr. Pravin Travis Urea nitrogen [Mass/Vol] 11.0 mg/dL Normal 7.0-18.0 [facility] Comment on above: Performed By: #### C MP #### [facility] [address] [address] [address] Pravin Travis Urea nitrogen/Creatinine [Mass ratio] 9.0 mg/mg Normal [facility] Comment on above: Performed By: #### C MP #### [facility] [address] [address] [address] Pravin Travis COVID Quick Testingon 2021 Result Positive [employer] Other COVID Quick Testingon 2020 Result Negative [employer] Other Quick Fluon 08-11-2021 FLUAV Ab CF (S) [Titer] Negative N [place] Other FLUBV Ab CF (S) [Titer] Negative N [place] Other Vital Signs Date Time Vital Sign Value Performing Clinician Facility 03-03-2024 14:00-0400 Diastolic blood pressure 95 mm[Hg] DO [place] Phone: [facility] 03-03-2024 14:00-0400 Heart rate 79 /min DO [place] Phone: [facility] 03-03-2024 14:00-0400 Respiratory rate 18 /min DO Tax Alli Work Phone: [facility] 03-03-2024 14:00-0400 SaO2% (BldA) [Mass fraction] 95 % DO Tax Alli Work Phone: [facility] 03-03-2024 14:00-0400 Systolic blood pressure 147 mm[Hg] DO Tax Alli Work Phone: [facility] 03-03-2024 11:20-0400 Body temperature 98.2 [degF] DO Tax Alli Work Phone: [facility] 03-03-2024 11:18-0400 Body height 172.72 cm DO Cisco Furlong Work Phone: [facility] 03-03-2024 11:18-0400 Body weight 80.65 kg DO Cisco Furlong Work Phone: [facility] 02-02-2024 11:29-0400 Body temperature 98.6 [degF] Didi Orzech [facility] 02-02-2024 11:29-0400 Diastolic blood pressure 81 mm[Hg] Didi Orzech [facility] 02-02-2024 11:29-0400 Heart rate 77 /min Didi Orzech [facility] 02-02-2024 11:29-0400 Respiratory rate 16 /min Didi Orzech [facility] 02-02-2024 11:29-0400 Systolic blood pressure 136 mm[Hg] Didi Orzech [facility] 01-30-2024 01:11-0400 Heart rate 159 /min DO Cisco Furlong Work Phone: [facility] 01-30-2024 00:30-0400 Respiratory rate 22 /min DO Cisco Furlong Work Phone: [facility] 01-30-2024 00:30-0400 SaO2% (BldA) [Mass fraction] 97 % DO Cisco Furlong Work Phone: [facility] 01-29-2024 23:38-0400 Diastolic blood pressure 95 mm[Hg] DO Cisco Furlong Work Phone: [facility] 01-29-2024 23:38-0400 Systolic blood pressure 136 mm[Hg] DO Cisco [employer] Work Phone: [facility] 01-29-2024 22:45-0400 Body height 172.72 cm DO [employer] Work Phone: [facility] 01-29-2024 22:45-0400 Body weight 86.2 kg DO [employer] Work Phone: [facility] 01-29-2024 22:44-0400 Body temperature 98.3 [degF] DO Tax Alli Work Phone: [facility] 09-01-2021 13:30-0500 Body height 172.72 cm Tawnya Andre Other [employer] Other 09-01-2021 13:30-0500 Body mass index (BMI) [Ratio] 31.93 kg/m2 Tawnya Andre Other [employer] Other 09-01-2021 13:30-0500 Body temperature 97.4 [degF] Tawnya Andre Other [employer] Other 09-01-2021 13:30-0500 Body weight 95.26 kg Tawnya Andre Other [employer] Other 09-01-2021 13:30-0500 Respiratory rate 18 /min Tawnya Andre Other [employer] Other 09-01-2021 13:30-0500 SaO2% (BldA) [Mass fraction] 98 % Tawnya Andre Other [employer] Other 08-11-2021 12:00-0500 Body height 172.72 cm Mary King Other [employer] Other 08-11-2021 12:00-0500 Body mass index (BMI) [Ratio] 31.93 kg/m2 Mary King Other [employer] Other 08-11-2021 12:00-0500 Body temperature 96.9 [degF] Mary King Other [employer] Other 08-11-2021 12:00-0500 Body weight 95.26 kg Mary King Other [employer] Other 08-11-2021 12:00-0500 Respiratory rate 18 /min Mary King Other [employer] Other 08-11-2021 12:00-0500 SaO2% (BldA) [Mass fraction] 96 % Mary King Other [employer] Other Encounters Encounter Date Encounter Type Care Provider Facility Start: 04-03-2024 ambulatory Didi X Orzech Facilit y:[facility]ARIEN Fabian Start: 03-03-2024 End: 03-03-2024 Emergency department patient visit DO Cisco Carcamokiley Work Phone: [facility] Work Phone: Start: 02-17-2024 End: 02-18-2024 Evaluation and management of inpatient [facility] Start: 02-02-2024 End: 02-02-2024 ambulatory Didi X Tiffany Facility:[facility] Bonds Start: 02-02-2024 End: 02-02-2024 Patient encounter procedure Didi X Orzech [facility] Start: 01-30-2024 ambulatory Didi Orzachery Facility: DARIEN Bonds Start: 01-29-2024 End: 01-30-2024 Emergency department patient visit DO Cisco Blanc Work Phone: [facility] Work Phone: Start: 12-09-2023 End: 12-09-2023 ambulatory [facility] Start: 03-26-2022 End: 03-26-[address] CISCO BLANC Facility:[facility] Start: 09-01-2021 End: 09-01-2021 ambulatory Tawnya Andre Other [employer] Other Start: 09-01-2021 Office outpatient visit 15 minutes Tawnya Andre [facility] Start: 08-11-2021 End: 08-11-2021 ambulatory Mary King Other [employer] Other Start: 08-11-2021 Office outpatient visit 15 minutes Mary King [facility] Start: 08-30-2016 End: 08-31-2016 Ambulatory GRADY DHALIWAL Facility:[facility] Procedures Date Procedure Procedure Detail Performing Clinician Start: 03-03-2024 Diagnostic radiograp hy of abdomen DO Cisco Blanc Work Phone: Start: 01-29-2024 CT of abdomen and pe lvis without contrast DO Cisco Blanc Work Phone: Appendectomy Didi Latoya Colonoscopy Didi Orze Plan of Treatment Date Care Activity Detail Author Start: 01-29-2024 CT Abdomen and Pelvi s WO contrast [facility] Start: 01-29-2024 CT of abdomen and pelvis without contrast CT abdomen pelvis wo con [facility] Patient Education [facility] Work Phone: Patient referral [facility] [place] [facility] Work Phone: Immunizations Immunization Date Immunization Notes Care Provider [facility] 06-20-2021 influenza virus vaccine, unspecified formulation Didi Orzech [facility] 06-20-2021 SARS-CoV-2 (COVID-19 ) mRNA BNT-162b2 vax Didi Orzech [facility] 12-08-2020 SARS-CoV-2 (COVID-19 ) mRNA BNT-162b2 vax Didi Orzech [facility] 11-18-2020 SARS-CoV-2 (COVID-19 ) mRNA BNT-162x0 vax Didi Orzech [facility] 04-06-2020 influenza virus vaccine, unspecified formulation Didi Orzech [facility] 06-07-2019 influenza virus vaccine, unspecified formulation Didi Orzech [facility] 10-27-2013 tetanus toxoid, redu brock diphtheria toxoid, and acellular pertussis vaccine, adsorbed Didi Orzech [facility] Payers Date Payer Category Payer Self-pay [id number] 2022 Medicaid 2022 Unknown [id number] 2.1 [id number] 2021 Unknown [id number] 2021 Unknown [id number] 2021 Medicaid [id number] 2019 Unknown [id number] 1968 Unknown [id number] 2.16.84 [id number] 1968 Unknown [id number] 2.16.8 [id number] 1968 Unknown [id number] 2.16.8 [id number] 1968 Unknown [id number] 2.16.8 [id number] 1968 Unknown [id number] 2.16.8 [id number] 1968 Unknown [id number] 2.16.8 [id number] 1959 Private Health Insurance [id number] Medicaid [id number] Unknown [id number] 2.16.8 [id number] Unknown [id number] 2.16.8 [id number] Social History Date Type Detail Facility Unknown if ever smoked [employer] Other Sex Assigned At [facility] Start: 01-29-2024 End: 03-03-2024 Tobacco smoking status NHIS Smoker (finding) [facility] Start: 1970 Sex Assigned At Male F [facility] Start: 02-02-2024 Tobacco smoking status Ex-smoker (fi nding) [facility] Tobacco smoking status Never [facility] Functional Status Date Assessment Result Facility 02-02-2024 Functional Status N/A [facility] Evaluation note 09-01-2021 Note Date & Type Note Facility 09-01-2021 Evaluation note Encounter Date Diagnosis Assessment Notes Aug, Contact with and (suspected) exposure to other viral communicable diseases (ICD-10 - Z20.828) covid test pos, see above. Aug, COVID (ICD-10 - U07.1) Covid test pos in office today. Supportive care as directed. Push fluids and rest. Pt is to take otc antipyretic prn for fever and aches. Pt is to take otc cough suppressant prn for cough. They are to follow the recommended stay at home quarantine rules for 10 days from onset of sx and they are to avoid contact with others in the home. Pt is to be re-evaluated after tx if sx worsen or don't improve by pcp or UC. Discussed at length sx of resp distress that would indicate need for immediate ER tx. Sx include but not limited to worsening SOB, wheeze, dyspnea, difficulty swallowing or breathing, and chest pain. Go straight to ER for any of these sx. Pt is to call the office with any questions or concerns regarding dx and tx. Information sheet with test results, general info on covid virus, and info sheet about treatment at home and quarantine guidelines was provided to pt in office today. Pt was referred to PCP for chronic management. Pt understood and agreed to tx plan. Aug, Other Additional time spent conducting pre-visit phone call, screening for symptoms, instructions on social distancing, application and removal of PPE, and cleaning of examination room, equipment and supplies was preformed. Patient education given for testing methodology and results. Patient care instructions given in writting by [facility] document. [employer] Other Evaluation note 08-11-2021 Note Date & Type Note Facility 08-11-2021 Evaluation note Encounter Date Diagnosis Assessment Notes Jul, Contact with and (suspected) exposure to other viral communicable diseases (ICD-10 - Z20.828) Today test was performed in office. Results are currently negative. That does not mean that you will not develop COVID or do not currently have a low viral count of COVID. The rapid test works best if symptoms have been over 72 hours and the results can vary if you are asymptomatic There is a higher chance of false negative results to occur if testing is performed too soon. It is recommended that even if results are negative and you have been exposed to someone that has COVID that you follow current CDC recommendations . These can be found at CDC.GOV. Follow up with primary care provider if symptoms persist or do not improve *VIRAL URI HANOUT GIVEN ON OTC TREATMENTS, FOLLOW UP AND WHEN TO SEEK EMERGENCY TREATMENT Jul, Other Additional time spent conducting pre-visit phone call, screening for symptoms, instructions on social distancing, application and removal of PPE, and cleaning of examination room, equipment and supplies was preformed. Patient education given for testing methodology and results. Patient care instructions given in writting by [facility] document. [employer] Other Evaluation + Plan note Note Date & Type Note Facility Evaluation + Plan note Future Appointments Appointment Date:04/03/2024 01:00:00 PM Scheduled Provider:JOSEPH Allen APRN, Didi Martin Location:[facility] Appointment Type:URO Office Visit [facility] Evaluation note Note Date & Type Note Facility Evaluation note No assessment information availa ble [facility] Work Phone: History general Narrative - Reported Note Date & Type Note Facility History general Narrative - Reported Type Medical History insomnia Medical History anxiety Medical History HTN Surgical History appendix removed Surgical History compartment syndrome left hand 2016 Hospitalization History see surgical hx [employer] Other Hospital course Narrative Note Date & Type Note Facility Hospital course Narrative No data available for this section [facility] Hospital Discharge instructions Note Date & Type Note Facility Hospital Discharge instructions Additional Instructions Wear leg bag with Murray catheter Follow-up with urology Return if symptoms are worse [facility] Work Phone: Hospital Discharge instructions Note Date & Type Note Facility Hospital Discharge instructions No data available for this section [facility] Progress note Note Date & Type Note Facility Progress note No data available for this section [facility] Summary Purpose Family History No Family History Records FoundNo Family History Records FoundNo Family History Records Found No data available for this section No Family History Records FoundNo Family History Records FoundNo Family History Records Found Advance Directives No Advanced Directives Records Found Advance Directive Response Recorded Date/ Time Advance Directives No July 3:32pm Chief Complaint and Reason for Visit Chief Complaint urogential Chief Complaint urogential unable to urnitate Additional Source Comments (unrecognized sect ion and content) No Status Records FoundNo Status Records FoundNo Status Records FoundNo Status Records FoundNo Status Records FoundNo Status Records Found INFORMATION SOURCE (unrecogn ized section and content) DATE CREATED AUTHOR 02/14/2018 [facility] DATE CREATED AUTHOR AUTHOR'S ORGANIZ ATION 03/29/2022 [facility] DATE CREATED AUTHOR AUTHOR'S ORGANIZ ATION 12/10/2023 [facility] DATE CREATED AUTHOR AUTHOR'S ORGANIZ ATION 02/09/2024 [facility] [place] [facility] DATE CREATED AUTHOR AUTHOR'S ORGANIZ ATION 02/24/2024 [facility] DATE CREATED AUTHOR AUTHOR'S ORGANIZ ATION 03/19/2024 [facility] REASON FOR VISIT (unrecogniz ed section and content) #9 [place], SORE THROAT , RUNNY NOSE, COUGH, COVID Provider Visit#15 WH[place], SXS X 4 DAYS Care Teams (unrecognized sec tion and content) Team Status: Active Member Role Status Dates Cisco Blanc DO Primary Care Provider Active Team Status: Inactive Member Role Status Dates Cisco Blanc DO Primary Care Provider Active Start: January 29, 2024 End: January 30, 2024 Jennyfer Winkler MD Emergency Provider Active Star t: January 29, 2024 End: January 30, 2024 Team Status: Inactive Member Role Status Dates Cisco Blanc DO Primary Care Provider Active Start: March 03, 2024 End: March 03, 2024 James De PA-C Emergency Provider Active Start: March 03, 2024 End: March 03, 2024 Goals (unrecognized section and content) Goals may be documented in a n alternate section FOR RECORDS PERTAINING TO PATIENTS WHO ARE OR HAVE BEEN ENROLLED IN A CHEMICAL DEPENDENCY/SUBSTANCEABUSE PROGRAM, SOME INFORMATION MAY BE OMITTED. This clinical summary was aggregated from multiple sources. Caution should be exercised in using it in the provision of clinical care. This summary normalizes information from multiple sources, and as a consequence, information in this document may materially change the coding, format and clinical context of patient data. In addition, data may be omitted in some cases. CLINICAL DECISIONS SHOULD BE BASED ON THE PRIMARY CLINICAL RECORDS. [employer]. provides no warranty or guarantee of the accuracy or completeness of information in this document.
--- NOTE | 2024-04-02 01:18 | ED.GENADUL1 ---
HPI HPI - General Adult General Chief complaint: Dizziness Stated complaint: DIZZY Time Seen by Provider: 04/02/24 01:02 Source: patient Mode of arrival: walk-in History of Present Illness HPI narrative: patient presents states he feels dizzy. off balance sensation that has been present all day yesterday. States his central vision is clear but there is mild blurring to his vision bilaterally. Also complains of firm abdomen all day. No vomiting. States loose stools. Denies constipation. No fever or headache. Related Data Home Medications ?Medication ?Instructions ?Recorded ?Confirmed amlodipine 10 mg tablet 10 mg PO DAILY 03/11/24 03/11/24 amlodipine 5 mg tablet mg 04/02/24 Previous Rx's ?Medication ?Instructions ?Recorded dicyclomine 20 mg tablet 20 mg PO TID PRN abdominal pain #7 03/09/24 tabs docusate sodium 100 mg capsule 100 mg PO DAILY #20 caps 03/09/24 (Colace) metoclopramide HCl 10 mg tablet 10 mg PO Q6H PRN nausea and 03/09/24 (Reglan) vomiting 3 days #7 tabs ondansetron 4 mg disintegrating 4 mg PO Q4H PRN nausea and 03/09/24 tablet vomiting 3 days #6 tabs lidocaine 5 % topical cream 1 applic topical TID PRN pain #15 03/11/24 (RectiCare) grams meloxicam 15 mg tablet 15 mg PO DAILY PRN pain #10 tabs 03/11/24 nitroglycerin 0.4 % (w/w) rectal 1 inch TX BID #30 grams 03/13/24 ointment Allergies Allergy/AdvReac Type Severity Reaction Status Date / Time No Known Drug Allergies Allergy Verified 03/13/24 11:51 Opioid HPI Opioid Management Most Recent Opioid Data: Last Pain Scale 6 03/11/24 11:12 Review of Systems ROS Status of ROS 10 or more systems reviewed and unremarkable except as noted in history and below Exam Constitutional Vital Signs, click to edit/add: Last Vital Signs Temp 98.4 F 04/02/24 01:06 Pulse 83 04/02/24 02:57 Resp 14 04/02/24 02:57 BP 121/66 04/02/24 04:15 Pulse Ox 97 04/02/24 01:06 O2 Del Method Room Air 04/02/24 01:06 Common normals: no apparent distress, average body habitus, oriented x3, no limitations, healthy appearing, alert and well nourished HENMT Common normals: normocephalic and head/scalp atraumatic Eye Common normals: EOMs intact bilaterally and conjunctivae normal Respiratory Common normals: normal respiratory effort, no retractions, no use of accessory muscles and clear to auscultation bilaterally Cardio Common normals: regular rate, regular rhythm, S1 normal heart sound and S2 normal heart sound GI Common normals: Normal to inspection, nondistended, normoactive bowel sounds present, soft to palpation and non-tender Extremity Common normals: normal to inspection Neuro Common normals: oriented x3, CN's II-XII intact bilaterally, moves all extremities and no focal motor deficits Psych Appearance: grossly normal Course Vital Signs Vital signs: Vital Signs Temperature 98.4 F 04/02/24 01:06 Pulse Rate 91 H 04/02/24 01:06 Respiratory Rate 16 04/02/24 01:06 Blood Pressure 192/124 H 04/02/24 01:06 Pulse Oximetry 97 04/02/24 01:06 Oxygen Delivery Method Room Air 04/02/24 01:06 Temperature 98.4 F 04/02/24 01:06 Pulse Rate 83 04/02/24 02:57 Respiratory Rate 14 04/02/24 02:57 Blood Pressure 121/66 04/02/24 04:15 Pulse Oximetry 97 04/02/24 01:06 Oxygen Delivery Method Room Air 04/02/24 01:06 Medical Decision Making [facility] Narrative Medical decision making narrative: patient presents with hypertension and atypical complaint of bilat blurred peripheral vision and clear central vision. A sensation of feeling off balance and abdominal pain and distension. Symptoms for over 12 hours. Abdomen nontender. PERR, EOMI systolic BP 199. Decreased to 136 after one dose of catapres. Patient re examined and is now asymptomatic CT brain and CT abdomen pending CT abdomen with evidence of diarrhea and CT brain neg. BP remained normal after the one dose of catapres. Patient advised to followup with his doctor in one day for recheck Lab Data Labs: Lab Results 04/02/24 Range/Units 01:20 WBC 8.9 (4.0-11.0) 10^3/uL RBC 5.72 (4.70-6.10) 10^6/uL Hgb 18.3 H (14.0-18.0) g/dL Hct 50.3 (42.0-54.0) % MCV 87.9 (80.0-94.0) fL MCH 32.0 (25.9-34.0) pg MCHC 36.4 H (29.9-35.2) g/dL RDW 11.3 (11.0-15.0) % Plt Count 223 (150-450) 10^3/uL MPV 9.7 (9.5-13.5) fL Neut % (Auto) 71.3 (43.0-75.0) % Lymph % (Auto) 17.0 L (20.5-60.0) % [place] % (Auto) 7.7 (1.7-12.0) % Eos % (Auto) 3.1 (0.9-7.0) % Baso % (Auto) 0.7 (0.2-2.0) % Neut # (Auto) 6.4 (1.4-6.5) 10^3/uL Lymph # (Auto) 1.5 (1.2-3.8) 10^3/uL [place] # (Auto) 0.7 (0.3-0.8) 10^3/uL Eos # (Auto) 0.3 (0.0-0.7) 10^3/uL Baso # (Auto) 0.1 (0.0-0.1) 10^3/uL Abs Immat Gran (auto) 0.02 (0.00-0.03) 10^3/uL Imm/Tot Granulo (auto) 0.2 (0.0-0.5) % Sodium 131 L (136-145) mmol/L Potassium 3.3 L (3.5-5.1) mmol/L Chloride 95 L (98-107) mmol/L Carbon Dioxide 24.1 (21.0-32.0) mmol/L Anion Gap 15.2 BUN 8.0 (7.0-18.0) mg/dL Creatinine 0.91 (0.70-1.30) mg/dL Est GFR ( Amer) >60 (>=60) Est GFR (Non-Af Amer) >60 (>=60) BUN/Creatinine Ratio 8.8 Glucose 95 (74-106) mg/dL Lactate 1.3 (0.4-2.0) mmol/L Calcium 8.9 (8.5-10.1) mg/dL Total Bilirubin 0.8 (0.2-1.0) mg/dL AST 20 (15-37) U/L ALT 38 (16-63) U/L Alkaline Phosphatase 116 (46-116) U/L Total Protein 7.7 (6.4-8.2) g/dL Albumin 4.2 (3.4-5.0) g/dL Globulin 3.5 g/dL Albumin/Globulin Ratio 1.2 Discharge Plan Discharge Stand Alone Forms: Portal Instructions Chief Complaint: Dizziness Clinical Impression: Diarrhea, Hypertension Patient Disposition: Home, Self-Care Prescriptions / Home Meds: No Action ondansetron 4 mg tablet,disintegrating 4 mg PO Q4H PRN (Reason: nausea and vomiting) 3 Days Qty: 6 0RF docusate sodium [Colace] 100 mg capsule 100 mg PO DAILY Qty: 20 0RF dicyclomine 20 mg tablet 20 mg PO TID PRN (Reason: abdominal pain) Qty: 7 0RF metoclopramide HCl [Reglan] 10 mg tablet 10 mg PO Q6H PRN (Reason: nausea and vomiting) 3 Days Qty: 7 0RF nitroglycerin 0.4 % (w/w) ointment 1 inch TX BID Qty: 30 0RF amlodipine 5 mg tablet amlodipine 10 mg tablet 10 mg PO DAILY lidocaine [RectiCare] 5 % cream 1 applic topical TID PRN (Reason: pain) Qty: 15 0RF meloxicam 15 mg tablet 15 mg PO DAILY PRN (Reason: pain ) Qty: 10 0RF Print Language: Polish Instructions: Acute Diarrhea (ED), Hypertension (ED) Additional Instructions: follow up with your doctor tomorrow for recheck Referrals: MELY BONILLA [Primary Care Provider] - 1 week
--- NOTE | 2024-04-02 01:21 | CT_ITS ---
The [address] [address] Patient Name: HARLAN ARNOLD MRN: [id number] date: 1970 Sex: M Assigned Patient Location: ER Current Patient Location: ER Accession/Order Number: [id number] Exam Date: 04/02/2024 01:37 Report Date: 04/02/2024 03:02 At the request of: SYDNIE MESSER Procedure: CT head/brain wo con CT OF THE BRAIN WITHOUT CONTRAST: 04/02/2024 1:37 AM EDT HISTORY: Dizziness and blurry vision. TECHNIQUE: Contiguous axially collimated images were obtained through the intracranial compartment, from the vertex through the foramen magnum. Coronal and Sagittal reformatted images were prepared on a separate workstation and reviewed on the PACS for anatomic correlation. No contrast was administered. This CT exam was performed using one or more of the following dose reduction techniques: Automated exposure control, adjustment of the mA and/or kV according to patient size, or use of iterative reconstruction technique. Thin section coronal and sagittal images were reconstructed from the axial data set. All images were reviewed and interpreted. COMPARISON: None. FINDINGS: There is no intracranial hemorrhage or abnormal extra-axial fluid collection. To the extent of evaluated with noncontrast technique, there is no mass lesion appreciated. There is no mass-effect or shift of midline structures. The ventricles and CSF spaces are age appropriate. There is no evidence of hydrocephalus. There is no effacement of the basal cisterns. Guzman white matter differentiation is well preserved throughout, without evidence of acute ischemia. There is no significant leukomalacia. The basal ganglia and thalami are unremarkable. The posterior fossa, brain stem, and fourth ventricle are normal. There is no tonsillar ectopy. Incidentally noted mildly prominent pineal gland calcification. Doubtful significance. The calvarium is intact, without destructive lesion or depressed fracture. The mastoid air cells are well-aerated. The paranasal sinuses are normally aerated. CT/CT head/brain wo con IMPRESSION: No acute or significant intracranial pathology. Electronically authenticated by: ANANDA ARANGO Date: 04/02/2024 03:02
--- NOTE | 2024-04-02 01:22 | CT_ITS ---
The [facility] [address], [place] [address] Patient Name: HARLAN ARNOLD MRN: [id number] date: 1970 Sex: M Assigned Patient Location: ER Current Patient Location: ER Accession/Order Number: [id number] Exam Date: 04/02/2024 01:37 Report Date: 04/02/2024 04:14 At the request of: SYDNIE MESSER Procedure: CT abdomen pelvis w con EXAM: CT abdomen pelvis w con HISTORY: Abdominal pain. COMPARISON: CT abdomen/pelvis dated 11/22/2023. TECHNIQUE: Routine CT abdomen/pelvis with intravenous contrast. FINDINGS: Lower chest: Stable cluster of small lung cysts at the left lung base. Liver: Unremarkable. Gallbladder/biliary tree: Unremarkable. Pancreas: Unremarkable. Spleen: Unremarkable. Kidneys: Stable 2.5 cm right renal cyst mild retained lobulation along the contour of both kidneys. Adrenal glands: Unremarkable. Bowel: Moderately large amount of liquid stool within the colon. There are diverticula along the descending and sigmoid colon without diverticulitis. The patient has had a prior appendectomy. The distal esophagus is unremarkable. There is a small amount of fluid within the stomach which is otherwise unremarkable. Fluid and a few air-fluid levels are seen within jejunal and ileal small bowel loops. Correlate with clinical findings of an enteritis with diarrhea. Inflammation: There is no free air, free fluid or inflammatory reaction. Vasculature: Moderate atheromatous plaque along the abdominal aorta and common iliac arteries. The IVC is unremarkable. Pelvis: The unopacified urinary bladder is distended however otherwise unremarkable. Stable mild enlargement of the prostate gland. Musculoskeletal: Small fat-containing umbilical hernia. Discogenic degenerative changes, facet arthritis and paravertebral ossifications at numerous levels along the spine. Moderate degenerative changes at both hip joints. CT/CT abdomen pelvis w con IMPRESSION: Moderately large amount of liquid stool within the colon and fluid and air-fluid levels within jejunal and ileal small bowel loops. Correlate with clinical findings of an enteritis with diarrhea. The bowel gas pattern is nonobstructive. There are diverticula along the descending and sigmoid colon without diverticulitis. Stable 2.5 cm right renal cyst. Stable mild enlargement of the prostate gland. Correlation should be made with the clinical exam and PSA level. Few additional findings as described in the body the report. Electronically authenticated by: JOANIE ALEJANDRE Date: 04/02/2024 04:14
[2024-04-02] MEDS: CLONIDINE HCL 0.1 MG TABLET PO (01:27)
[2024-04-02 01:37] LABS: Basophils Absolute Auto 0.1 10^3/uL (0.0-0.1); Basophils Percent Auto 0.7 % (0.2-2.0); Eosinophils Absolute Auto 0.3 10^3/uL (0.0-0.7); Eosinophils Percent Auto 3.1 % (0.9-7.0); Hematocrit 50.3 % (42.0-54.0); Hemoglobin 18.3 g/dL (14.0-18.0); Immature Granulocytes Abs Auto 0.02 10^3/uL (0.00-0.03); Immature Granulocytes Pct Auto 0.2 % (0.0-0.5); Lymphocytes Absolute Auto 1.5 10^3/uL (1.2-3.8); Mean Corpuscular HGB Conc 36.4 g/dL (29.9-35.2); Mean Corpuscular Volume 87.9 fL (80.0-94.0); Mean Platelet Volume 9.7 fL (9.5-13.5); Monocytes Absolute Auto 0.7 10^3/uL (0.3-0.8); Monocytes Percent Auto 7.7 % (1.7-12.0); Neutrophils Absolute Auto 6.4 10^3/uL (1.4-6.5); Neutrophils Percent Auto 71.3 % (43.0-75.0); Platelet Count 223 10^3/uL (150-450); Red Blood Count 5.72 10^6/uL (4.70-6.10); Red Cell Distribution Width 11.3 % (11.0-15.0); White Blood Count 8.9 10^3/uL (4.0-11.0)
[2024-04-02 01:53] LABS: Alanine Aminotransferase 38 U/L (16-63); Albumin Globulin Ratio 1.2; Albumin Level 4.2 g/dL (3.4-5.0); Alkaline Phosphatase 116 U/L (46-116); Anion Gap 15.2; Aspartate Amino Transferase 20 U/L (15-37); BUN Creatinine Ratio 8.8; Bilirubin Total 0.8 mg/dL (0.2-1.0); Calcium 8.9 mg/dL (8.5-10.1); Carbon Dioxide 24.1 mmol/L (21.0-32.0); Chloride 95 mmol/L (98-107); Estimated GFR (African America >60 (>=60); Estimated GFR (Non-African Ame >60 (>=60); Globulin 3.5 g/dL; Glucose 95 mg/dL (74-106); Potassium 3.3 mmol/L (3.5-5.1); Sodium 131 mmol/L (136-145); Total Protein 7.7 g/dL (6.4-8.2)
[2024-04-02 01:55] LABS: Lactate/Lactic Acid 1.3 mmol/L (0.4-2.0)
--- NOTE | 2024-04-02 04:43 | ECG_ITS ---
The [facility] Test Date: 2024-04-02 Pat Name: HARLAN ARNOLD Department: Room: - Gender: Male [employer]: : 1970 Requested By: [id number] Order Number: [id number] Reading MD: SKYLER RIDDLE Measurements Intervals [place] Rate: 84 P: 47 ME: 156 QRS: 51 QRSD: 80 T: 65 QT: 366 QTc: 408 Interpretive Statements 1100 Sinus rhythm 4068 Nonspecific Twave abnormality 9130 borderline ECG Compared to ECG 01/12/2020 09:55:36 No significant changes Electronically Signed On 04-02-2024 8:35:39 EDT by SKYLER RIDDLE
== END 2024-04-02 04:37 | disposition home or self-care (01) ==
PROVIDERS: Emergency Provider Internal Medicine; PCP Family Medicine
DX: R19.7 Diarrhea, unspecified (principal); I10 Essential (primary) hypertension
CPT/HCPCS: 36415; 70450; 74177; 80053; 83605; 85025; 93005; 99285; Q9967

== ENCOUNTER 2024-04-04 00:26 | Emergency (ER) | payer OTHER, SELFPAY ==
[2024-04-04] VITALS (8 sets, daily range): BP systolic 144–164; BP diastolic 94–110; PULSE 73–88; TEMP 36.8; O2SAT 96–99; BMI 28.9
--- OUTSIDE RECORDS SUMMARY | 2024-04-04 01:07 | XMS_ITS | CCD ---
Author Organization [facility] Care Team Providers Care Space Officer Name Role Phone OSINOWO, OSIYEMI Unavailable Unavailable OSINOWO, OSIYEMI Unavailable Unavailable NADERER, MLEQUIADES Unavailable Unavailable NADERER, MELQUIADES Unavailable Unavailable Mary King Unavailable Tawnya Andre Unavailable DR CISCO BLANC Primary Care Unavailable MARKER, DR JUARES Admitting Unavailable MARKER, DR JUARES Attending Unavailable MARKER, DR JUARES Consulting Unavailable ALANA MORROW Consulting Unavailable JOLANTA GARY Attending Unavailable CISCO BLANC Referring Unavailable CISCO BLANC Primary Care Unavailable DO Cisco Blanc Primary Care Provider [phone] MD Jennyfer Winkler Emergency Provider [phone] CISCO BLANC Primary Care Physician [phone] JENNYFER AUGUSTIN Admitting Unavailable JENNYFER AUGUSTIN Attending Unavailable CISCO BLANC Primary Care Unavailable JENNYFER AUGUSTIN Attending Unavailable JENNYFER AUGUSTIN Referring Unavailable CISCO BLANC Primary Care Unavailable JAME De Emergency Provider [phone] Cisco Blanc Primary Care Unavailable James De Attending Unavailable James De Admitting Unavailable Jennyfer Winkler Attending Unavailable Jennyfer Winkler Admitting Unavailable Cisco Blanc Primary Care Unavailable Didi Allen Attending Unavailable Didi Allen Attending Unavailable Allergies Allergy Classification Reported Allergen(s) Allergy Type Date of Onset Reaction(s) Facility (1 source) No Known Medication Allergies; Translations: [No Known Medication Allergies] Propensity to adverse reactions (disorder) [facility] Repository Medications Current Medications Medication Drug Class(es) [...] Start: 02-02-2024 take 1 capsule by mo [facility] once daily tamsulosin 0.4 mg Cap 0.4 mg = 1 cap(s), Oral, Daily, # 30 cap(s), Refills(s) 3, Pharmacy: [facility], 173, cm, 02/02/24 11:34:00 EDT, Height/Length [...] WBC (Bld) 0.4 % Normal . [facility] Comment on above: Performed By: #### B MP, SCAN CBC #### [facility] [address] Automated basophil countOrde red By: James De on 03-03-2024 Basophils (Bld) [#/Vol] 0.0 10*3/uL Normal 0.0-0.2 [facility] Comment on above: Performed By: #### B MP, SCAN CBC #### [facility] [address] [place] [address] Automated blood monocyte cou ntOrdered By: James De on 03-03-2024 Monocytes (Bld) [#/Vol] 0.8 10*3/uL Normal 0.0-0.8 [facility] Comment on above: Performed By: #### B MP, SCAN CBC #### [facility] [address] [place] [address] Automated eosinophil %Ordere d By: James De on 03-03-2024 Eosinophils/100 WBC (Bld) 2.6 % Normal . [facility] Comment on above: Performed By: #### B MP, SCAN CBC #### [facility] [address] [place] [address] Automated eosinophil countOr dered By: James De on 03-03-2024 Eosinophils (Bld) [#/Vol] 0.2 10*3/uL Normal 0.0-0.45 [facility] Comment on above: Performed By: #### B MP, SCAN CBC #### [facility] [address] [place] [address] Automated monocyte %Ordered By: James De on 03-03-2024 Monocytes/100 WBC (Bld) 8.7 % Normal . [facility] Comment on above: Performed By: #### B MP, SCAN CBC #### [address] Automated neutrophil %Ordere d By: James De on 03-03-2024 Neutrophils/100 WBC (Bld) 74.9 % Normal . [facility] Comment on above: Performed By: #### B MP, SCAN CBC #### [address] Bacteria [Presence] in Urine by AutomatedOrdered By: Nish Davidson on 03-03-2024 Bacteria Auto Ql (U) None seen [HPF] None Seen [facility] Basic Metabolic Panelon 02-19 Creatinine Clr Calc Pharmacy 68.43 Normal [facility] Comment on above: Result Comment: PERF ORMED BY: [place] [address] PATHOLOGIST IT AUDIT MANAGER GAURAV CONWAY M.D. Performed By: #### B MP, SCAN CBC #### [address] GFR/1.73 sq M.predicted MDRD (S/P/Bld) [Vol rate/Area] mL/min/{1.73_m2} Normal [facility] Comment on above: Performed By: #### B MP, SCAN CBC #### [address] Bilirubin Test strip Ql (U)O rdered By: Nish Davidson on 03-03-2024 Bilirubin Ql (U) Negative Negative [facility] Calcium [Mass/volume] in Ser um or PlasmaOrdered By: James De on 03-03-2024 Calcium [Mass/Vol] 9.5 mg/dL Normal 8.6-10.3 [facility] Comment on above: Performed By: #### B MP, SCAN CBC #### [address] Carbon dioxide, total [Moles /volume] in Serum or PlasmaOrdered By: James De on 03-03-2024 CO2 [Moles/Vol] 25.3 mmol/L Normal 21.0-31.0 [facility] Comment on above: Performed By: #### B MP, SCAN CBC #### [facility] [address] [place] [address] [place] Chloride [Moles/volume] in S dereje or PlasmaOrdered By: James De on 03-03-2024 Chloride [Moles/Vol] 102 mmol/L Normal 98-107 [facility] Comment on above: Performed By: #### B MP, SCAN CBC #### [facility] [address] [place] [address] [place] Color of Urine by AutoOrdere d By: Nish Davidson on 03-03-2024 Color (U) Yellow Normal Yellow [facility] Comment on above: Order Comment: Name Collection Type:: Voided Performed By: #### A DDONUAPLUS ####[address] Creatinine [Mass/volume] in Serum or PlasmaOrdered By: James De on 03-03-2024 Creatinine [Mass/Vol] 1.18 mg/dL Normal 0.70-1.30 [facility] Comment on above: Performed By: #### B MP, SCAN CBC #### [facility] [address] [place] [address] [place] Dipstick and Microscopicon 0 03-03-2024 Bacteria,Urine None Seen Normal None Seen [facility] Comment on above: Order Comment: Name Collection Type:: Voided Performed By: #### A DDONUAPLUS ####[place] [id number] [place] Bilirubin,Urine Negative Normal Negative [facility] Comment on above: Order Comment: Name Collection Type:: Voided Performed By: #### A DDONUAPLUS ####[place] [id number] [place] Glucose Ql (U) Normal Normal Normal [facility] Comment on above: Order Comment: Name Collection Type:: Voided Performed By: #### A DDONUAPLUS ####[place] [id number] [place] Hyaline Casts,Urine 0-8 Normal 0-8 [facility] Comment on above: Order Comment: Name Collection Type:: Voided Performed By: #### A DDONUAPLUS ####[address] [address] [place] Mucus,Urine 1+ Critically abnormal [facility] Comment on above: Order Comment: Name Collection Type:: Voided Result Comment: PERF ORMED BY: [facility] [address] [place] [address] PATHOLOGIST IT AUDIT MANAGER GAURAV CONWAY M.D. Performed By: #### A DDONUAPLUS ####[address] [address] [place] Nitrite,Urine Negative Normal Negative [facility] Comment on above: Order Comment: Name Collection Type:: Voided Performed By: #### A DDONUAPLUS ####[address] [address] [facility] Occult Blood,Urine Negative Normal Negative [facility] Comment on above: Order Comment: Name Collection Type:: Voided Result Comment: PERF ORMED BY: [facility] [address] [place] [address] PATHOLOGIST IT AUDIT MANAGER GAURAV CONWAY M.D. Performed By: #### A DDONUAPLUS ####[address] [address] [facility] Protein,Urine Trace High Negative [facility] Comment on above: Order Comment: Name Collection Type:: Voided Performed By: #### A DDONUAPLUS ####[address] [address] [facility] RBC,Urine None Seen Normal 0-4 [facility] Comment on above: Order Comment: Name Collection Type:: Voided Performed By: #### A DDONUAPLUS ####[address] [address] [facility] Specificy [place],Urine 1.015 Normal 1.001-1.030 [facility] Comment on above: Order Comment: Name Collection Type:: Voided Performed By: #### A DDONUAPLUS ####[place] [id number] [address] Squamous Epithelial Cell,Urine 1-2 Normal 0-2 [facility] Comment on above: Order Comment: Name Collection Type:: Voided Performed By: #### A DDONUAPLUS ####[facility] Urobilinogen,Urine Normal Normal Normal [facility] Comment on above: Order Comment: Name Collection Type:: Voided Performed By: #### A DDONUAPLUS ####[facility] Urothelial Cells 1-2 High 0-1 [facility] Comment on above: Order Comment: Name Collection Type:: Voided Performed By: #### A DDONUAPLUS ####[facility] WBC,Urine 1-2 Normal 0-4 [facility] Comment on above: Order Comment: Name Collection Type:: Voided Performed By: #### A DDONUAPLUS ####[address] Epithelial cells.squamous [# /area] in Urine sediment by Automated countOrdered By: Nish Davidson on 03-03-2024 Epithelial cells.squamous Auto (Urine sed) [#/Area] 1-2 [HPF] 0-2 [facility] Erythrocyte distribution wid th [Ratio] by Automated countOrdered By: James De on 03-03-2024 Erythrocyte distribution width (RBC) [Ratio] 12.6 % Normal 12.0-14.8 [facility] Comment on above: Performed By: #### B MP, SCAN CBC #### [facility] [address] Erythrocytes [#/area] in Uri ne sediment by Automated countOrdered By: Nish Davidson on 03-03-2024 RBC Auto (Urine sed) [#/Area] None seen [HPF] 0-4 [facility] Erythrocytes [#/volume] in B lood by Automated countOrdered By: James De on 07-13-2024 RBC (Bld) [#/Vol] 5.64 10*6/uL High 3.90-5.60 [facility] Comment on above: Performed By: #### B MP, SCAN CBC #### [facility] [address] Glucose [Mass/volume] in Ser um or PlasmaOrdered By: James De on 03-03-2024 Glucose [Mass/Vol] 83 mg/dL Normal 70-100 [facility] Comment on above: ADA recommended refe rence rangeRandom Glucose Reference Range is dependent on time and content of last meal. Glucose of more than 200 mg/dL in a nonstressed, ambulatory subject supports the diagnosis of Diabetes Mellitus. Result Comment: [place] om Glucose Reference Range is dependent on time and content of last meal. Glucose of more than 200 mg/dL in a nonstressed, ambulatory subject supports the diagnosis of Diabetes Mellitus. ADA recommended reference range Performed By: #### B MP, SCAN CBC #### [facility] [address] Glucose [Mass/volume] in Uri ne by Test stripOrdered By: Nish Davidson on 03-03-2024 Glucose Test strip (U) [Mass/Vol] Normal mg/dL Normal [facility] Hematocrit [Volume Fraction] of Blood by Automated countOrdered By: James De on 03-03-2024 Hematocrit (Bld) [Volume fraction] 52.6 % High 38.8-50.0 [facility] Comment on above: Performed By: #### B MP, SCAN CBC #### [address] Hemoglobin Test strip Ql (U) Ordered By: Nish Davidson on 03-03-2024 Hemoglobin Ql (U) Negative Negative [facility] Hemoglobin [Mass/volume] in BloodOrdered By: James De on 03-03-2024 Hemoglobin (Bld) [Mass/Vol] 18.5 g/dL High 13.0-17.0 [facility] Comment on above: Performed By: #### B MP, SCAN CBC #### [facility] [address] [place] [address] [place] Hyaline casts [#/area] in Ur ine sediment by Automated countOrdered By: Nish Davidson on 03-03-2024 Hyaline casts Auto (Urine sed) [#/Area] 0-8 [LPF] 0-8 [facility] Ketones [Presence] in Urine by Test stripOrdered By: Nish Davidson on 03-03-2024 Ketones Ql (U) 2+ High Negative [facility] Comment on above: Order Comment: Name Collection Type:: Voided Performed By: #### A DDONUAPLUS ####[facility] Leukocyte esterase [Presence ] in Urine by Test stripOrdered By: Nish Davidson on 03-03-2024 Leukocyte esterase Test strip Ql (U) Negative Normal Negative [facility] Comment on above: Order Comment: Name Collection Type:: Voided Performed By: #### A DDONUAPLUS ####[facility] [place] [address] [place] Leukocytes [#/area] in Urine sediment by Automated countOrdered By: Nish Davidson on 03-03-2024 WBC Auto (Urine sed) [#/Area] 1-2 [HPF] 0-4 [facility] Leukocytes [#/volume] correc ernst for nucleated erythrocytes in Blood by Automated counOrdered By: James De on 03-03-2024 WBC corrected for nucl RBC Auto (Bld) [#/Vol] 9.0 10*3/uL 4.1-10.5 [facility] Leukocytes [#/volume] in Blo od by Automated countOrdered By: James De on 03-03-2024 WBC (Bld) [#/Vol] 9.0 10*3/uL Normal 4.1-10.5 [facility] Comment on above: Performed By: #### B MP, SCAN CBC #### [facility] [address] [place] [address] [place] Lymphocytes [#/volume] in Bl ood by Automated countOrdered By: James De on 03-03-2024 Lymphocytes (Bld) [#/Vol] 1.2 10*3/uL Normal 1.00-4.8 [facility] Comment on above: Performed By: #### B MP, SCAN CBC #### [facility] [address] [place] [address] Lymphocytes/100 leukocytes i n Blood by Automated countOrdered By: James De on 03-03-2024 Lymphocytes/100 WBC (Bld) 13.4 % Normal . [facility] Comment on above: Performed By: #### B MP, SCAN CBC #### [facility] [address] [place] [address] MCH [Entitic mass] by Automa ernst countOrdered By: James De on 03-03-2024 MCH (RBC) [Entitic mass] 32.8 pg Normal 27.5-35.2 [facility] Comment on above: Performed By: #### B MP, SCAN CBC #### [facility] [address] [place] [address] MCHC Auto (RBC) [Mass/Vol]Or dered By: James De on 03-03-2024 MCHC (RBC) [Mass/Vol] 35.1 g/dL 32.5-35.6 [facility] MCV [Entitic volume] by Auto mated countOrdered By: James De on 03-03-2024 MCV (RBC) [Entitic vol] 93.4 fL Normal 83.5-101 [facility] Comment on above: Performed By: #### B MP, SCAN CBC #### [facility] [address] [place] [address] Monocyte distribution width [Entitic volume] in Blood by AutomatedOrdered By: James De on 03-03-2024 Monocyte distribution width Auto (Bld) [Entitic vol] 17.08 % 0.00-20.00 [facility] Mucus [Presence] in Urine by AutomatedOrdered By: Nish Davidson on 03-03-2024 Mucus Auto Ql (U) 1+ [LPF] Abnormal [facility] Neutrophils [#/volume] in Bl ood by Automated countOrdered By: James De on 03-03-2024 Neutrophils (Bld) [#/Vol] 6.7 10*3/uL Normal 1.8-7.7 [facility] Comment on above: Performed By: #### B MP, SCAN CBC #### [facility] [address] Nitrite Test strip Ql (U)Ord ered By: Nish Davidson on 03-03-2024 Nitrite Ql (U) Negative Negative [facility] No Panel InformationOrdered By: James De on 03-03-2024 Estimated GFR (CKD-EPI) > 60.0 mL/Min [facility] Creatinine Clearance (Chem 68.43 [facility] Nucleated erythrocytes [Pres ence] in Blood by Automated countOrdered By: James De on 03-03-2024 Nucleated RBC Auto Ql (Bld) 0.4 /100{WBC} 0-0.5 [facility] Platelet adequacy [Presence] in Blood by Light microscopyOrdered By: James De on 03-03-2024 Platelets LM Ql (Bld) Normal Normal [facility] Platelet mean volume [Entiti c volume] in Blood by Automated countOrdered By: James De on 03-03-2024 Platelet mean volume (Bld) [Entitic vol] 8.4 fL Normal 6.6-10.1 [facility] Comment on above: Performed By: #### B MP, SCAN CBC #### [facility] [address] Platelet morphology finding [Identifier] in BloodOrdered By: James De on 03-03-2024 Platelet morphology finding Nom (Bld) Normal Normal [facility] Platelets [#/volume] in Bloo d by Automated countOrdered By: James De on 03-03-2024 Platelets (Bld) [#/Vol] 207 10*3/uL Normal 150-450 [facility] Comment on above: Performed By: #### B MP, SCAN CBC #### [facility] [address] Potassium [Moles/volume] in Serum or PlasmaOrdered By: James De on 03-03-2024 Potassium [Moles/Vol] 3.7 mmol/L Normal 3.5-5.1 [facility] Comment on above: Performed By: #### B MP, SCAN CBC #### [address] Protein Test strip (U) [Mass /Vol]Ordered By: Nish Davidson on 03-03-2024 Protein (U) [Mass/Vol] Trace mg/dL High Negative [facility] RBC morphologyOrdered By: Asad De on 03-03-2024 RBC morphology finding Nom (Bld) Normal Normal Normal [facility] Comment on above: Performed By: #### B MP, SCAN CBC #### [address] Scan and CBCon 03-03-2024 Mean Corpuscular HGB Conc 35.1 g/dL Normal 32.5-35.6 [facility] Comment on above: Performed By: #### B MP, SCAN CBC #### [address] Monocytes/100 WBC (Bld) 17.08 % Normal 0.00-20.00 [facility] Comment on above: Performed By: #### B MP, SCAN CBC #### [address] NRBC% 0.4 /100{WBC} Normal 0-0.5 [facility] Comment on above: Performed By: #### B MP, SCAN CBC #### [facility] [address] [place] [address] Platelet Estimate Normal Normal Normal [facility] Comment on above: Performed By: #### B MP, SCAN CBC #### [address] Platelet Morphology Normal Normal Normal [facility] Comment on above: Result Comment: PERF ORMED BY: [place] [address] PATHOLOGIST IT AUDIT MANAGER GAURAV CONWAY M.D. Performed By: #### B MP, SCAN CBC #### [facility] [address] [place] [address] Serum or plasma anion gap de terminationOrdered By: James De on 03-03-2024 Anion gap [Moles/Vol] 12.4 mmol/L Normal 6.0-15.0 [facility] Comment on above: Performed By: #### B MP, SCAN CBC #### [facility] [address] Sodium [Moles/volume] in Ser um or PlasmaOrdered By: James De on 03-03-2024 Sodium [Moles/Vol] 136 mmol/L Normal 136-145 [facility] Comment on above: Performed By: #### B MP, SCAN CBC #### [facility] [address] Specific gravity Test strip (U) [Rel density]Ordered By: Nish Davidson on 03-03-2024 Specific gravity (U) [Rel density] 1.015 1.001-1.030 [facility] Transitional cells [#/area] in Urine by Computer assisted methodOrdered By: Nish Davidson on 03-03-2024 Transitional cells Computer assisted (U) [#/Area] 1-2 [HPF] High 0-1 [facility] Urea nitrogen [Mass/volume] in Serum or PlasmaOrdered By: James De on 03-03-2024 Urea nitrogen [Mass/Vol] 8 mg/dL Normal 7-25 [facility] Comment on above: Performed By: #### B MP, SCAN CBC #### [facility] [address] Urine appearanceOrdered By: Nish Davidson on 03-03-2024 Appearance (U) Clear Normal Clear [facility] Comment on above: Order Comment: Name Collection Type:: Voided Performed By: #### A DDONUAPLUS ####[facility] Urobilinogen Test strip (U) [Mass/Vol]Ordered By: Nish Davidson on 03-03-2024 Urobilinogen (U) [Mass/Vol] Normal mg/dL Normal [facility] XR KUBon 03-03-2024 XR KUB [facility] [place] [address] [place] [address] XRay Report Signed Patient: Harlan Russell MR#: [id number] 2 : 1970 Acct:[id number] Age/Sex: 53 / M ADM Date: 03/03/24 Loc: ER Room: Type: [facility] ER Attending Dr: Copies to: James De [...] Dante Lisa M.D.03/03/2024 2:38 PM Dictation Location: [place] [address] Transcribed By: [facility] 03/03/24 1438 Dictated By: Dante Lisa II, MD 03/03/24 1437 Signed By: 03/03/24 1438 Normal [facility] pH of Urine by Test stripOrd ered By: Nish Davidson on 03-03-2024 pH (U) 6.0 [pH] Normal 5.0-9.0 [facility] Comment on above: Order Comment: Name Collection Type:: Voided Performed By: #### A DDONUAPLUS ####[facility] [address] [place] [address] [facility] Surgical Pathologyon 024 [facility] Comment on above: Result Comment: [facility] [address] [place] [address] Surgical Pathology Consultation Patient Name:HARLAN RUSSELL:1970 (Age: 53)Gender:MTaken:4Reported:02/22/2024hysician(s):Jennyfer Augustin MD ([phone])Copy To: Rec. #:[id number]: #[id number] Final Pathologic Diagnosis 1. Colon polyp 55cm: Hyperplastic polyp. 2. Colon polyp 35cm: Tubular adenoma. Report Electronically Signed Out st02/22/2024Keren Bee MD Interpretation performed at [facility], [address] [place], [address], License number: [id number]. Clinical History Change in bowel habits. Gross Description 1. Received in formalin labeled, CATALINA, 55 cm is a mccray-richardson 0.3 cm soft tissue.. The specimen is filtered and entirely submitted in a single cassette. (1, ns, [id number], m8) SM 2. Received in formalin labeled, CATALINA, 35 cm is a pale richardson 0.3 cm the specimen is filtered and entirely submitted in a single cassette. (1, ns, [id number], m8) SM [facility]/02/20/2024GR Specimen(s) Received 1: Colon polyp 55cm 2: Colon polyp 35cm Fee Codes(s): 1; 49270 2; 66478 Patient Educationon 02-07-20 Patient Education Oncology Cancer [...] if anything looks unusual. Men with a iamquq-kynz-ousjko risk for skin cancer may want to see a cash control specialist (nursery hand) for an annual body check. What are the benefits of screening? Cancer screening is done to look for cancer in the very early stages, before it spreads and becomes harder to treat and before you would start to notice symptoms. Finding cancer early improves the chances of successful treatment. It ma (more content not included)... Normal [facility] Urology Office/Clinic Noteon 02-07-2024 Urology Office/Clinic Note Chief Complaint Pt is here for urinary retention [facility] f/u HPI Staff Harlan is a 53 y.o. male here for [facility] f/u, urinary retention. Pt presented to [facility] on 01/29/24 due to inability to urinate. PVR done @ [facility] showed 900cc of urine, Murray placed. Pt [...] with voice recognition artificial intelligence software, specifically [employer] and or [employer]. 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 Formson 02-03-2024 Forms [id number]#1.00TIFF [facility] Screenson 02-03-2024 Screens [id number]#1.00TIFF [facility] Screens [id number]#1.00TIFF [facility] Ambulatory Visit Summaryon 0 02-02-2024 Ambulatory Visit [...] you for choosing us for your care. [facility] Ambulatory Visit Summary HARLAN RUSSELL :1970 Visit [...] you for choosing us for your care. [facility] CT abdomen pelvis wo conon 0 01-30-2024 CT abdomen pelvis wo con [facility] [place] [address] CT Scan Report Signed Patient: Harlan Russell MR#: [id number] 2 : 1970 Acct:[id number] Age/Sex: 53 / M ADM Date: 01/29/24 Loc: ER Room: Type: [facility] ER Attending Dr: Copies to: Jennyfer Winkler [...] Anni Whitley M.D.01/30/2024 8:58 AM Dictation Location: [place] [address] Transcribed By: [facility] 01/30/24857 Dictated By: Anni Whitley MD 01/30/24 0851 Signed By: 01/30/24857 Normal [facility] Alanine aminotransferase [En zymatic activity/volume] in Serum or PlasmaOrdered By: Jennyfer Winkler on 01-29-2024 ALT [Catalytic activity/Vol] 24 U/L Normal [facility] Comment on above: Performed By: #### H EPATIC, LIPASE, DIFF CBC, GLADYS, BMP #### [facility] [address] Albumin [Mass/volume] in Ser um or Plasma by Bromocresol green (BCG) dye binding methoOrdered By: Jennyfer Winkler on 01-29-2024 Albumin BCG dye [Mass/Vol] 4.9 g/dL 3.5-5.7 [facility] Alkaline phosphatase [Enzyma tic activity/volume] in Serum or PlasmaOrdered By: Jennyfer Winkler on 01-29-2024 ALP [Catalytic activity/Vol] 96 U/L Normal 34-104 [facility] Comment on above: Performed By: #### H EPATIC, LIPASE, DIFF CBC, GLADYS, BMP #### [facility] [address] Amylase [Enzymatic activity/ volume] in Serum or PlasmaOrdered By: Jennyfer Winkler on 01-29-2024 Amylase [Catalytic activity/Vol] 47 U/L Normal 29-103 [facility] Comment on above: Performed By: #### H EPATIC, LIPASE, DIFF CBC, GLADYS, BMP #### [facility] [address] Aspartate aminotransferase [ Enzymatic activity/volume] in Serum or PlasmaOrdered By: Jennyfer Winkler on 01-29-2024 AST [Catalytic activity/Vol] 21 U/L Normal 13-39 [facility] Comment on above: Performed By: #### H EPATIC, LIPASE, DIFF CBC, GLADYS, BMP #### [address] Basic Metabolic Panelon 06-0 Creatinine Clr Calc Pharmacy 83.32 Normal [facility] Comment on above: Performed By: #### H EPATIC, LIPASE, DIFF CBC, GLADYS, BMP #### [facility] [address] GFR/1.73 sq M.predicted MDRD (S/P/Bld) [Vol rate/Area] mL/min/{1.73_m2} Normal [facility] Comment on above: Performed By: #### H EPATIC, LIPASE, DIFF CBC, GLADYS, BMP #### [facility] [address] [place] [address] [place] Basophils Auto (Bld) [#/Vol] Ordered By: Jennyfer Winkler on 01-29-2024 Basophils (Bld) [#/Vol] N/A [facility] Basophils/100 WBC Auto (Bld) Ordered By: Jennyfer Winkler on 01-29-2024 Basophils/100 WBC (Bld) N/A [facility] Bilirubin Test strip Ql (U)O rdered By: Jennyfer Winkler on 01-29-2024 Bilirubin Ql (U) Negative Negative [facility] Bilirubin.direct [Mass/volum e] in Serum or PlasmaOrdered By: Jennyfer Winkler on 01-29-2024 Bilirubin.direct [Mass/Vol] 0.10 mg/dL 0.03-0.18 [facility] Bilirubin.total [Mass/volume ] in Serum or PlasmaOrdered By: Jennyfer Winkler on 01-29-2024 Bilirubin [Mass/Vol] 0.8 mg/dL Normal 0.3-1.0 [facility] Comment on above: Performed By: #### H EPATIC, LIPASE, DIFF CBC, GLADYS, BMP #### [facility] [address] [place] [address] [place] Calcium [Mass/volume] in Ser um or PlasmaOrdered By: Jennyfer Winkler on 01-29-2024 Calcium [Mass/Vol] 10.2 mg/dL Normal 8.6-10.3 [facility] Comment on above: Performed By: #### H EPATIC, LIPASE, DIFF CBC, GLADYS, BMP #### [facility] [address] [place] [address] [place] Carbon dioxide, total [Moles /volume] in Serum or PlasmaOrdered By: Jennyfer Winkler on 01-29-2024 CO2 [Moles/Vol] 26.4 mmol/L Normal 21.0-31.0 [facility] Comment on above: Performed By: #### H EPATIC, LIPASE, DIFF CBC, GLADYS, BMP #### [facility] [address] [place] [address] [place] Chloride [Moles/volume] in S dereje or PlasmaOrdered By: Jennyfer Winkler on 01-29-2024 Chloride [Moles/Vol] 98 mmol/L Normal 98-107 [facility] Comment on above: Performed By: #### H EPATIC, LIPASE, DIFF CBC, GLADYS, BMP #### [address] Color of Urine by AutoOrdere d By: Jennyfer Winkler on 01-29-2024 Color (U) Colorless Normal Yellow [facility] Comment on above: Order Comment: Name Collection Type:: Murray Catheter Performed By: #### U A #### [address] Creatinine [Mass/volume] in Serum or PlasmaOrdered By: Jennyfer Winkler on 01-29-2024 Creatinine [Mass/Vol] 1.07 mg/dL Normal 0.70-1.30 [facility] Comment on above: Performed By: #### H EPATIC, LIPASE, DIFF CBC, GLADYS, BMP #### [address] Diff and CBCon 01-29-2024 Giant Platelet Tally 1 /100{WBC} Normal [facility] Comment on above: Performed By: #### H EPATIC, LIPASE, DIFF CBC, GLADYS, BMP #### [address] Mean Corpuscular HGB Conc 35.0 g/dL Normal 32.5-35.6 [facility] Comment on above: Performed By: #### H EPATIC, LIPASE, DIFF CBC, GLADYS, BMP #### [address] Monocytes/100 WBC (Bld) 18.41 % Normal 0.00-20.00 T [facility] Comment on above: Result Comment: PERF ORMED BY: [place] [address] PATHOLOGIST IT AUDIT MANAGER GAURAV CONWAY M.D. Performed By: #### H EPATIC, LIPASE, DIFF CBC, GLADYS, BMP #### [address] Platelet Estimate Normal Normal Normal [facility] Comment on above: Performed By: #### H EPATIC, LIPASE, DIFF CBC, GLADYS, BMP #### [address] [place] [address] [place] Platelet Morphology Normal Normal Normal [facility] Comment on above: Result Comment: PERF ORMED BY: [place] [address] PATHOLOGIST IT AUDIT MANAGER GAURAV CONWAY M.D. Performed By: #### H EPATIC, LIPASE, DIFF CBC, GLADYS, BMP #### [address] Reactive Lymphocytes 6 % Normal 0-12 [facility] Comment on above: Performed By: #### H EPATIC, LIPASE, DIFF CBC, GLADYS, BMP #### [address] Eosinophils Auto (Bld) [#/Vo l]Ordered By: Jennyfer Winkler on 01-29-2024 Eosinophils (Bld) [#/Vol] N/A [facility] Eosinophils/100 WBC Auto (Bl d)Ordered By: Jennyfer Winkler on 01-29-2024 Eosinophils/100 WBC (Bld) N/A [facility] Eosinophils/100 leukocytes i n Blood by Manual countOrdered By: Jennyfer Winkler on 01-29-2024 Eosinophils/100 WBC (Bld) 5 % High 1-3 [facility] Comment on above: Performed By: #### H EPATIC, LIPASE, DIFF CBC, GLADYS, BMP #### [address] Erythrocyte distribution wid th [Ratio] by Automated countOrdered By: Jennyfer Winkler on 01-29-2024 Erythrocyte distribution width (RBC) [Ratio] 12.1 % Normal 12.0-14.8 [facility] Comment on above: Performed By: #### H EPATIC, LIPASE, DIFF CBC, GLADYS, BMP #### [address] Erythrocytes [#/volume] in B lood by Automated countOrdered By: Jennyfer Winkler on 01-29-2024 RBC (Bld) [#/Vol] 5.83 10*6/uL High 3.90-5.60 [facility] Comment on above: Performed By: #### H EPATIC, LIPASE, DIFF CBC, GLADYS, BMP #### [facility] [address] [place] [address] [place] Giant platelets/100 leukocyt es [Ratio] in Blood by Manual countOrdered By: Jennyfer Winkler on 01-29-2024 Giant platelets/100 WBC Manual cnt (Bld) [Ratio] 1 /100{WBC} [facility] Glucose [Mass/volume] in Ser um or PlasmaOrdered By: Jennyfer Winkler on 01-29-2024 Glucose [Mass/Vol] 103 mg/dL High 70-100 [facility] Comment on above: ADA recommended refe rence rangeRandom Glucose Reference Range is dependent on time and content of last meal. Glucose of more than 200 mg/dL in a nonstressed, ambulatory subject supports the diagnosis of Diabetes Mellitus. Result Comment: [place] om Glucose Reference Range is dependent on time and content of last meal. Glucose of more than 200 mg/dL in a nonstressed, ambulatory subject supports the diagnosis of Diabetes Mellitus. ADA recommended reference range Performed By: #### H EPATIC, LIPASE, DIFF CBC, GLADYS, BMP #### [facility] [address] Glucose [Mass/volume] in Uri ne by Test stripOrdered By: Jennyfer Winkler on 01-29-2024 Glucose Test strip (U) [Mass/Vol] Normal mg/dL Normal [facility] Hematocrit [Volume Fraction] of Blood by Automated countOrdered By: Jennyfer Winkler on 01-29-2024 Hematocrit (Bld) [Volume fraction] 54.1 % High 38.8-50.0 [facility] Comment on above: Performed By: #### H EPATIC, LIPASE, DIFF CBC, GLADYS, BMP #### [facility] [address] Hemoglobin Test strip Ql (U) Ordered By: Jennyfer Winkler on 01-29-2024 Hemoglobin Ql (U) Negative Negative [facility] Hemoglobin [Mass/volume] in BloodOrdered By: Jennyfer Winkler on 01-29-2024 Hemoglobin (Bld) [Mass/Vol] 18.9 g/dL High 13.0-17.0 [facility] Comment on above: Performed By: #### H EPATIC, LIPASE, DIFF CBC, GLADYS, BMP #### [facility] [address] Hepatic Panelon 01-29-2024 Albumin [Mass/Vol] 4.9 g/dL Normal 3.5-5.7 [facility] Comment on above: Performed By: #### H EPATIC, LIPASE, DIFF CBC, GLADYS, BMP #### [facility] [address] Bilirubin,Indirect 0.7 mg/dL Normal [facility] Comment on above: Performed By: #### H EPATIC, LIPASE, DIFF CBC, GLADYS, BMP #### [facility] [address] Bilirubin.indirect [Mass/Vol] 0.10 mg/dL Normal 0.03-0.18 [facility] Comment on above: Performed By: #### H EPATIC, LIPASE, DIFF CBC, GLADYS, BMP #### [address] Ketones [Presence] in Urine by Test stripOrdered By: Jennyfer Winkler on 01-29-2024 Ketones Ql (U) Negative Normal Negative [facility] Comment on above: Order Comment: Name Collection Type:: Murray Catheter Performed By: #### U A #### [address] Leukocyte esterase [Presence ] in Urine by Test stripOrdered By: Jennyfer Winkler on 01-29-2024 Leukocyte esterase Test strip Ql (U) Negative Normal Negative [facility] Comment on above: Order Comment: Name Collection Type:: Murray Catheter Performed By: #### U A #### [address] Leukocytes [#/volume] correc ernst for nucleated erythrocytes in Blood by Automated counOrdered By: Jennyfer Winkler on 01-29-2024 WBC corrected for nucl RBC Auto (Bld) [#/Vol] 6.8 10*3/uL 4.1-10.5 [facility] Leukocytes [#/volume] in Blo od by Automated countOrdered By: Jennyfer Winkler on 01-29-2024 WBC (Bld) [#/Vol] 6.8 10*3/uL Normal 4.1-10.5 [facility] Comment on above: Performed By: #### H EPATIC, LIPASE, DIFF CBC, GLADYS, BMP #### [facility] [address] [place] [address] Lipase [Enzymatic activity/v olume] in Serum or PlasmaOrdered By: Jennyfer Winkler on 01-29-2024 Lipase [Catalytic activity/Vol] 29.0 U/L Normal 11.0-82.0 [facility] Comment on above: Result Comment: PERF ORMED BY: [place] [address] PATHOLOGIST IT AUDIT MANAGER GAURAV CONWAY M.D. Performed By: #### H EPATIC, LIPASE, DIFF CBC, GLADYS, BMP #### [address] Lymphocytes Auto (Bld) [#/Vo l]Ordered By: Jennyfer Winkler on 01-29-2024 Lymphocytes (Bld) [#/Vol] N/A [facility] Lymphocytes/100 WBC Auto (Bl d)Ordered By: Jennyfer Winkler on 01-29-2024 Lymphocytes/100 WBC (Bld) N/A [facility] Lymphocytes/100 leukocytes i n Blood by Manual countOrdered By: Jennyfer Winkler on 01-29-2024 Lymphocytes/100 WBC (Bld) 28 % Normal 18-42 [facility] Comment on above: Performed By: #### H EPATIC, LIPASE, DIFF CBC, GLADYS, BMP #### [facility] [address] [place] [address] MCH [Entitic mass] by Automa ernst countOrdered By: Jennyfer Winkler on 01-29-2024 MCH (RBC) [Entitic mass] 32.4 pg Normal 27.5-35.2 [facility] Comment on above: Performed By: #### H EPATIC, LIPASE, DIFF CBC, GLADYS, BMP #### [facility] [address] [place] [address] MCHC Auto (RBC) [Mass/Vol]Or dered By: Jennyfer Winkler on 01-29-2024 MCHC (RBC) [Mass/Vol] 35.0 g/dL 32.5-35.6 [facility] MCV [Entitic volume] by Auto mated countOrdered By: Jennyfer Winkler on 01-29-2024 MCV (RBC) [Entitic vol] 92.7 fL Normal 83.5-101 [facility] Comment on above: Performed By: #### H EPATIC, LIPASE, DIFF CBC, GLADYS, BMP #### [facility] [address] Manual blood segmented neutr ophils/100 leukocytesOrdered By: Jennyfer Winkler on 01-29-2024 Segmented neutrophils/100 WBC (Bld) 58 % Normal 50-70 [facility] Comment on above: Performed By: #### H EPATIC, LIPASE, DIFF CBC, GLADYS, BMP #### [address] Monocyte distribution width [Entitic volume] in Blood by AutomatedOrdered By: Jennyfer Winkler on 01-29-2024 Monocyte distribution width Auto (Bld) [Entitic vol] 18.41 % 0.00-20.00 [facility] Monocytes Auto (Bld) [#/Vol] Ordered By: Jennyfer Winkler on 01-29-2024 Monocytes (Bld) [#/Vol] N/A [facility] Monocytes/100 WBC Auto (Bld) Ordered By: Jennyfer Winkler on 01-29-2024 Monocytes/100 WBC (Bld) N/A [facility] Monocytes/100 leukocytes in Blood by Manual countOrdered By: Jennyfer Winkler on 01-29-2024 Monocytes/100 WBC (Bld) 4 % Normal 2-11 [facility] Comment on above: Performed By: #### H EPATIC, LIPASE, DIFF CBC, GLADYS, BMP #### [place] [address] [place] Neutrophils Auto (Bld) [#/Vo l]Ordered By: Jennyfer Winkler on 01-29-2024 Neutrophils (Bld) [#/Vol] N/A [facility] Neutrophils/100 WBC Auto (Bl d)Ordered By: Jennyfer Winkler on 01-29-2024 Neutrophils/100 WBC (Bld) N/A [facility] Nitrite Test strip Ql (U)Ord ered By: Jennyfer Winkler on 01-29-2024 Nitrite Ql (U) Negative Negative [facility] No Panel InformationOrdered By: Jennyfer Winkler on 01-29-2024 Estimated GFR (CKD-EPI) > 60.0 mL/Min [facility] Creatinine Clearance (Chem 83.32 [facility] Nucleated erythrocytes [Pres ence] in Blood by Automated countOrdered By: Jennyfer Winkler on 01-29-2024 Nucleated RBC Auto Ql (Bld) N/A [facility] Platelet adequacy [Presence] in Blood by Light microscopyOrdered By: Jennyfer Winkler on 01-29-2024 Platelets LM Ql (Bld) Normal Normal [facility] Platelet mean volume [Entiti c volume] in Blood by Automated countOrdered By: Jennyfer Winkler on 01-29-2024 Platelet mean volume (Bld) [Entitic vol] 8.1 fL Normal 6.6-10.1 [facility] Comment on above: Performed By: #### H EPATIC, LIPASE, DIFF CBC, GLADYS, BMP #### [facility] [address] Platelet morphology finding [Identifier] in BloodOrdered By: Jennyfer Winkler on 01-29-2024 Platelet morphology finding Nom (Bld) Normal Normal [facility] Platelets [#/volume] in Bloo d by Automated countOrdered By: Jennyfer Winkler on 01-29-2024 Platelets (Bld) [#/Vol] 245 10*3/uL Normal 150-450 [facility] Comment on above: Performed By: #### H EPATIC, LIPASE, DIFF CBC, GLADYS, BMP #### [facility] [address] [place] [address] [place] Potassium [Moles/volume] in Serum or PlasmaOrdered By: Jennyfer Winkler on 01-29-2024 Potassium [Moles/Vol] 3.9 mmol/L Normal 3.5-5.1 [facility] Comment on above: Performed By: #### H EPATIC, LIPASE, DIFF CBC, GLADYS, BMP #### [facility] [address] [place] [id number] [place] Protein Test strip (U) [Mass /Vol]Ordered By: Jennyfer Winkler on 01-29-2024 Protein (U) [Mass/Vol] Negative Negative [facility] Protein [Mass/volume] in Ser um or PlasmaOrdered By: Jennyfer Winkler on 01-29-2024 Protein [Mass/Vol] 8.0 g/dL Normal 6.4-8.9 [facility] Comment on above: Performed By: #### H EPATIC, LIPASE, DIFF CBC, GLADYS, BMP #### [address] RBC morphologyOrdered By: Ella Winkler on 01-29-2024 RBC morphology finding Nom (Bld) Normal Normal Normal [facility] Comment on above: Performed By: #### H EPATIC, LIPASE, DIFF CBC, GLADYS, BMP #### [address] Serum globulin measurement b y calculation (mass/volume)Ordered By: Jennyfer Winkler on 01-29-2024 Globulin (S) [Mass/Vol] 3.1 g/dL Normal [facility] Comment on above: Performed By: #### H EPATIC, LIPASE, DIFF CBC, GLADYS, BMP #### [facility] [address] [place] [address] Serum or plasma albumin/glob ulin mass ratioOrdered By: Jennyfer Winkler on 01-29-2024 Albumin/Globulin [Mass ratio] 1.6 {ratio} Normal [facility] Comment on above: Performed By: #### H EPATIC, LIPASE, DIFF CBC, GLADYS, BMP #### [address] Serum or plasma anion gap de terminationOrdered By: Jennyfer Winkler on 01-29-2024 Anion gap [Moles/Vol] 10.5 mmol/L Normal 6.0-15.0 [facility] Comment on above: Performed By: #### H EPATIC, LIPASE, DIFF CBC, GLADYS, BMP #### [address] Serum or plasma non-glucuron idated bilirubin measurement (mass/volume)Ordered By: Jennyfer Winkler on 01-29-2024 Bilirubin.indirect [Mass/Vol] 0.7 mg/dL [facility] Sodium [Moles/volume] in Ser um or PlasmaOrdered By: Jennyfer Winkler on 01-29-2024 Sodium [Moles/Vol] 131 mmol/L Low 136-145 [facility] Comment on above: Performed By: #### H EPATIC, LIPASE, DIFF CBC, GLADYS, BMP #### [address] Specific gravity Test strip (U) [Rel density]Ordered By: Jennyfer Winkler on 01-29-2024 Specific gravity (U) [Rel density] 1.003 1.001-1.030 [facility] Urea nitrogen [Mass/volume] in Serum or PlasmaOrdered By: Jennyfer Winkler on 01-29-2024 Urea nitrogen [Mass/Vol] 6 mg/dL Low 7-25 [facility] Comment on above: Performed By: #### H EPATIC, LIPASE, DIFF CBC, GLADYS, BMP #### [address] Urinalysison 01-29-2024 Bilirubin,Urine Negative Normal Negative [facility] Comment on above: Order Comment: Name Collection Type:: Murray Catheter Performed By: #### U A #### [address] Glucose Ql (U) Normal Normal Normal [facility] Comment on above: Order Comment: Name Collection Type:: Murray Catheter Performed By: #### U A #### [place] [address] [place] Nitrite,Urine Negative Normal Negative [facility] Comment on above: Order Comment: Name Collection Type:: Murray Catheter Performed By: #### U A #### [address] Occult Blood,Urine Negative Normal Negative [facility] Comment on above: Order Comment: Name Collection Type:: Murray Catheter Result Comment: PERF ORMED BY: [address] [place] [address] PATHOLOGIST IT AUDIT MANAGER GAURAV CONWAY M.D. Performed By: #### U A #### [facility] [address] Protein,Urine Negative Normal Negative [facility] Comment on above: Order Comment: Name Collection Type:: Murray Catheter Performed By: #### U A #### [address] Specificy [place],Urine 1.003 Normal 1.001-1.030 [facility] Comment on above: Order Comment: Name Collection Type:: Murray Catheter Performed By: #### U A #### [address] Urobilinogen,Urine Normal Normal Normal [facility] Comment on above: Order Comment: Name Collection Type:: Murray Catheter Performed By: #### U A #### [address] Urine appearanceOrdered By: Jennyfer Winkler on 01-29-2024 Appearance (U) Clear Normal Clear [facility] Comment on above: Order Comment: Name Collection Type:: Murray Catheter Performed By: #### U A #### [address] Urobilinogen Test strip (U) [Mass/Vol]Ordered By: Jennyfer Winkler on 01-29-2024 Urobilinogen (U) [Mass/Vol] Normal mg/dL Normal [facility] Variant lymphocytes/100 WBC Manual cnt (Bld)Ordered By: Jennyfer Winkler on 01-29-2024 Variant lymphocytes/100 WBC (Bld) 6 % 0-12 [facility] pH of Urine by Test stripOrd ered By: Jennyfer Winkler on 01-29-2024 pH (U) 7.5 [pH] Normal 5.0-9.0 [facility] Comment on above: Order Comment: Name Collection Type:: Murray Catheter Performed By: #### U A #### [address] CBC AUTO DIFFon 03-26-2022 BASO # 0.1 103/ul Normal 0.0-0.1 [facility] Comment on above: Performed By: #### C BC #### [facility] [address] [place] [address] [address] Pravin Travis Basophils/100 WBC (Bld) 0.7 % Normal 0.2-2.0 [facility] Comment on above: Performed By: #### C BC #### [facility] [address] [place] [address] Dr. Pravin Travis EO # 0.6 103/ul Normal 0.0-0.7 [facility] Comment on above: Performed By: #### C BC #### [facility] [address] [place] [address] Dr. Pravin Travis Eosinophils/100 WBC (Bld) 7.4 % Critically high 0.9-7.0 [facility] Comment on above: Performed By: #### C BC #### [facility] [address] [place] [address] Dr. Pravin Travis Erythrocyte distribution width (RBC) [Ratio] 12.3 % Normal 11.0-15.0 [facility] Comment on above: Performed By: #### C BC #### [facility] [address] [place] [address] Dr. Pravin Travis Hematocrit (Bld) [Volume fraction] 47.2 % Normal 42.0-54.0 [facility] Comment on above: Performed By: #### C BC #### [facility] [address] [place] [address] Dr. Pravin Travis Hemoglobin (Bld) [Mass/Vol] 16.2 g/dL Normal 14.0-18.0 [facility] Comment on above: Performed By: #### C BC #### [facility] [address] [place] [address] Dr. Pravin Travis IG # 0.03 10e3/ul Normal 0.00-0.03 [facility] Comment on above: Performed By: #### C BC #### [facility] [address] [place] [address] Dr. Pravin Travis IG % 0.4 % Normal 0.0-0.5 [facility] Comment on above: Performed By: #### C BC #### [facility] [address] [place] [address] Dr. Pravin Travis LYMPH # 2.1 103/ul Normal 1.2-3.8 [facility] Comment on above: Performed By: #### C BC #### [facility] [address] [place] [address] Dr. Pravin Travis Lymphocytes/100 WBC (Bld) 24.3 % Normal 20.5-60.0 [facility] Comment on above: Performed By: #### C BC #### [facility] [address] [place] [address] Dr. Pravin Travis MANUAL DIFF REQ NO Normal [facility] Comment on above: Performed By: #### C BC #### [facility] [address] [place] [address] Dr. Pravin Travis MCH (RBC) [Entitic mass] 32.6 pg Normal 25.9-34.0 [facility] Comment on above: Performed By: #### C BC #### [facility] [address] [place] [address] Dr. Pravin Travis MCHC (RBC) [Mass/Vol] 34.3 g/dL Normal 29.9-35.2 [facility] Comment on above: Performed By: #### C BC #### [facility] [address] [place] [address] Dr. Pravin Travis MCV (RBC) [Entitic vol] 95.0 fL Critically high 80.0-94 .0 [facility] Comment on above: Performed By: #### C BC #### [facility] [address] [place] [address] Dr. Pravin Travis MONO # 0.8 103/ul Normal 0.3-0.8 [facility] Comment on above: Performed By: #### C BC #### [facility] [address] [place] [address] Dr. Pravin Travis Monocytes/100 WBC (Bld) 9.7 % Normal 1.7-12.0 [facility] Comment on above: Performed By: #### C BC #### [facility] [address] [place] [address] Dr. Pravin Travis NEUT # 4.9 103/ul Normal 1.4-6.5 [facility] Comment on above: Performed By: #### C BC #### [facility] [address] [place] [address] Dr. Pravin Travis Neutrophils/100 WBC (Bld) 57.5 % Normal 43.0-75.0 [facility] Comment on above: Performed By: #### C BC #### [facility] [address] [place] [address] Dr. Pravin Travis Platelet mean volume (Bld) [Entitic vol] 10.4 fL Normal 9.5-13.5 [facility] Comment on above: Performed By: #### C BC #### [facility] [address] [place] [address] Dr. Pravin Travis PLT 215 103/ul Normal 150-450 [facility] Comment on above: Performed By: #### C BC #### [facility] [address] [place] [address] Dr. Pravin Travis RBC 4.97 106/ul Normal 4.70-6.10 [facility] Comment on above: Performed By: #### C BC #### [facility] [address] [place] [address] Dr. Pravin Travis WBC 8.6 103/ul Normal 4.0-11.0 [facility] Comment on above: Performed By: #### C BC #### [facility] [address] [place] [address] ABD/PELV W CONon [...] ALANA MORROW Date: 2022-03-26 01:45 Normal [facility] ER URINE PROFILEon 2 Bilirubin Ql (U) Negative Normal NEGATIVE [facility] Comment on above: Performed By: #### E RUR #### [facility] [address] [place] [address] Dr. Pravin Travis Clarity (U) SL CLOUDY Abnormal CLEAR [facility] Comment on above: Performed By: #### E RUR #### [facility] [address] [place] [address] Dr. Pravin Travis Color (U) LT. YELLOW Normal YELLOW [facility] Comment on above: Performed By: #### E RUR #### [facility] [address] [place] [address] Dr. Pravin TURK A micrscopic examination will be performed if indicated. Normal [facility] Comment on above: Performed By: #### E RUR #### [facility] [address] [place] [address] Dr. Pravin Travis Glucose Ql (U) Negative Normal NEGATIVE The [facility] Comment on above: Performed By: #### E RUR #### [facility] [address] [place] [address] Dr. Pravin Travis Hemoglobin Ql (U) Negative Normal NEGATIVE The [facility] Comment on above: Performed By: #### E RUR #### [facility] [address] [place] [address] Dr. Pravin Travis Ketones Ql (U) Negative Normal NEGATIVE [facility] Comment on above: Performed By: #### E RUR #### [facility] [address] [place] [address] Dr. Pravin Travis LEUKOCYTES Negative Normal NEGATIVE [facility] Comment on above: Performed By: #### E RUR #### [facility] [address] [place] [address] Dr. Pravin Travis Nitrite Ql (U) Negative Normal NEGATIVE [facility] Comment on above: Performed By: #### E RUR #### [facility] [address] [place] [address] Dr. Pravin Travis pH (U) 7.5 [pH] Normal 5-9 [facility] Comment on above: Performed By: #### E RUR #### [facility] [address] [place] [address] Dr. Pravin Travis SPEC GRAVITY 1.015 Normal 1.005-<=1.02 5 [facility] Comment on above: Performed By: #### E RUR #### [facility] [address] [place] [address] Dr. Pravin Travis UA PROTEIN Negative Normal NEGATIVE/ TRACE [facility] Comment on above: Performed By: #### E RUR #### [facility] [address] [place] [address] Dr. Pravin Travis UR MICRO IND NOT INDICATED Normal [facility] Comment on above: Performed By: #### E RUR #### [facility] [address] [place] [address] Dr. Pravin Travis Urobilinogen Qn (U) 0.2 {Katie'U}/dL Normal 0.2 - 1. 0 [facility] Comment on above: Performed By: #### E RUR #### [facility] [address] [place] [address] Dr. Pravin Travis PROF 14(COMP METB)on 022 Albumin [Mass/Vol] 4.3 g/dL Normal 3.4-5.0 [facility] Comment on above: Performed By: #### C MP #### [facility] [address] [place] [address] Dr. Pravin Travis Albumin/Globulin [Mass ratio] 1.3 {ratio} Normal [facility] Comment on above: Performed By: #### C MP #### [facility] [address] [address] [address] Pravin Travis ALP [Catalytic activity/Vol] 92 U/L Normal 46-116 [facility] Comment on above: Performed By: #### C MP #### [facility] [address] [address] [address] Pravin Travis ALT [Catalytic activity/Vol] 31 U/L Normal 16-63 [facility] Comment on above: Performed By: #### C MP #### [facility] [address] [address] [address] Pravin Travis Anion gap [Moles/Vol] 10.9 mmol/L Normal [facility] Comment on above: Performed By: #### C MP #### [facility] [address] [place] [address] Dr. Pravin Travis AST [Catalytic activity/Vol] 31 U/L Normal 15-37 [facility] Comment on above: Performed By: #### C MP #### [facility] [address] [place] [address] Dr. Pravin Travis Bilirubin [Mass/Vol] 0.5 mg/dL Normal 0.2-1.0 [facility] Comment on above: Performed By: #### C MP #### [facility] [address] [place] [address] Dr. Pravin Travis Calcium [Mass/Vol] 9.3 mg/dL Normal 8.5-10.1 [facility] Comment on above: Performed By: #### C MP #### [facility] [address] [address] [address] Pravin Travis Chloride [Moles/Vol] 103 mmol/L Normal 98-107 [facility] Comment on above: Performed By: #### C MP #### [facility] [address] [address] [address] Pravin Travis CO2 [Moles/Vol] 29.8 mmol/L Normal 21.0-32.0 [facility] Comment on above: Performed By: #### C MP #### [facility] [address] [address] [address] Pravin Travis Creatinine [Mass/Vol] 1.22 mg/dL Normal 0.70-1.30 [facility] Comment on above: Performed By: #### C MP #### [facility] [address] [address] [address] Pravin Travis EGFR-AF BANGLADESHI >60 Normal >=60 [facility] Comment on above: Performed By: #### C MP #### [facility] [address] [address] [address] Pravin Travis EGFR-NON AF BANGLADESHI >60 Normal >=60 [facility] Comment on above: Performed By: #### C MP #### [facility] [address] [place] [address] Dr. Pravin Travis Globulin (S) [Mass/Vol] 3.4 g/dL Normal T [facility] Comment on above: Performed By: #### C MP #### [facility] [address] [place] [address] Dr. Pravin Travis Glucose [Mass/Vol] 91 mg/dL Normal 74-106 [facility] Comment on above: Performed By: #### C MP #### [facility] [address] [place] [address] Dr. Pravin Travis Potassium [Moles/Vol] 3.7 mmol/L Normal 3.5-5.1 [facility] Comment on above: Performed By: #### C MP #### [facility] [address] [place] [address] Dr. Pravin Travis Protein [Mass/Vol] 7.7 g/dL Normal 6.4-8.2 [facility] Comment on above: Performed By: #### C MP #### [facility] [address] [place] [address] Dr. Pravin Travis Sodium [Moles/Vol] 140 mmol/L Normal 136-145 [facility] Comment on above: Performed By: #### C MP #### [facility] [address] [place] [address] Dr. Pravin Travis Urea nitrogen [Mass/Vol] 11.0 mg/dL Normal 7.0-18.0 [facility] Comment on above: Performed By: #### C MP #### [facility] [address] [address] [address] Pravin Travis Urea nitrogen/Creatinine [Mass ratio] 9.0 mg/mg Normal [facility] Comment on above: Performed By: #### C MP #### [facility] [address] [address] [address] Pravin Travis COVID Quick Testingon 2021 Result Positive [employer] Other COVID Quick Testingon 2020 Result Negative [employer] Other Quick Fluon 08-11-2021 FLUAV Ab CF (S) [Titer] Negative N [employer] Other FLUBV Ab CF (S) [Titer] Negative N [employer] Other Vital Signs Date Time Vital Sign Value Performing Clinician Facility 03-03-2024 14:00-0400 Diastolic blood pressure 95 mm[Hg] DO [employer] Phone: [facility] 03-03-2024 14:00-0400 Heart rate 79 /min DO [employer] Phone: [facility] 03-03-2024 14:00-0400 Respiratory rate 18 /min DO [employer] Work Phone: [facility] 03-03-2024 14:00-0400 SaO2% (BldA) [Mass fraction] 95 % DO [employer] Work Phone: [facility] 03-03-2024 14:00-0400 Systolic blood pressure 147 mm[Hg] DO [employer] Work Phone: [facility] 03-03-2024 11:20-0400 Body temperature 98.2 [degF] DO [employer] Work Phone: [facility] 03-03-2024 11:18-0400 Body height 172.72 cm DO Cisco Furlong Work Phone: [facility] 03-03-2024 11:18-0400 Body weight 80.65 kg DO Cisco Furlong Work Phone: [facility] 02-02-2024 11:29-0400 Body temperature 98.6 [degF] Didi Orzech [facility] 02-02-2024 11:29-0400 Diastolic blood pressure 81 mm[Hg] Didi Orzech [facility] 02-02-2024 11:29-0400 Heart rate 77 /min Didi Orzech [facility] 02-02-2024 11:29-0400 Respiratory rate 16 /min Didi Orzech [facility] 02-02-2024 11:29-0400 Systolic blood pressure 136 mm[Hg] Didi Orzech [facility] 01-30-2024 01:11-0400 Heart rate 159 /min DO Cisco Furlong Work Phone: [facility] 01-30-2024 00:30-0400 Respiratory rate 22 /min DO Cisco Furlong Work Phone: [facility] 01-30-2024 00:30-0400 SaO2% (BldA) [Mass fraction] 97 % DO Cisco Furlong Work Phone: [facility] 01-29-2024 23:38-0400 Diastolic blood pressure 95 mm[Hg] DO Cisco Furlong Work Phone: [facility] 01-29-2024 23:38-0400 Systolic blood pressure 136 mm[Hg] DO Cisco [employer] Work Phone: [facility] 01-29-2024 22:45-0400 Body height 172.72 cm DO [employer] Work Phone: [facility] 01-29-2024 22:45-0400 Body weight 86.2 kg DO [employer] Work Phone: [facility] 01-29-2024 22:44-0400 Body temperature 98.3 [degF] DO [employer] Work Phone: [facility] 09-01-2021 13:30-0500 Body height 172.72 cm Tawnya Andre Other [employer] Other 09-01-2021 13:30-0500 Body mass index (BMI) [Ratio] 31.93 kg/m2 Tawnya Andre Other [employer] Other 09-01-2021 13:30-0500 Body temperature 97.4 [degF] Tawnya Andre Other [employer] Other 09-01-2021 13:30-0500 Body weight 95.26 kg Tawnya Andre Other [employer] Other 09-01-2021 13:30-0500 Respiratory rate 18 /min Tawnya Andre Other [employer] Other 09-01-2021 13:30-0500 SaO2% (BldA) [Mass fraction] 98 % Tawnya Andre Other [employer] Other 08-11-2021 12:00-0500 Body height 172.72 cm Mary King Other [employer] Other 08-11-2021 12:00-0500 Body mass index (BMI) [Ratio] 31.93 kg/m2 Mary King Other [employer] Other 08-11-2021 12:00-0500 Body temperature 96.9 [degF] Mary King Other [employer] Other 08-11-2021 12:00-0500 Body weight 95.26 kg Mary King Other [employer] Other 08-11-2021 12:00-0500 Respiratory rate 18 /min Mary King Other [employer] Other 08-11-2021 12:00-0500 SaO2% (BldA) [Mass fraction] 96 % Mary King Other [employer] Other Encounters Encounter Date Encounter Type Care Provider Facility Start: 04-03-2024 ambulatory Didi X Orzech Facilit y:DARIEN Fabian Start: 03-03-2024 End: 03-03-2024 Emergency department patient visit DO Cisco Carcamokiley Work Phone: [facility] Work Phone: Start: 02-17-2024 End: 02-18-2024 Evaluation and management of inpatient [facility] Start: 02-02-2024 End: 02-02-2024 ambulatory Didi X Tiffany Facility:[facility]IEN Bonds Start: 02-02-2024 End: 02-02-2024 Patient encounter procedure Didi X Orzech [facility] Start: 01-30-2024 ambulatory Didi Orzachery Facility: DARIEN Bonds Start: 01-29-2024 End: 01-30-2024 Emergency department patient visit DO Cisco Blanc Work Phone: [facility] Work Phone: Start: 12-09-2023 End: 12-09-2023 ambulatory [facility] Start: 03-26-2022 End: 03-26-[address] CISCO BLANC Facility:[facility] Start: 09-01-2021 End: 09-01-2021 ambulatory Tawnya Andre Other [employer] Other Start: 09-01-2021 Office outpatient visit 15 minutes Tawnya Andre [facility] Start: 08-11-2021 End: 08-11-2021 ambulatory Mary King Other [employer] Other Start: 08-11-2021 Office outpatient visit 15 minutes Mary King [facility] Start: 08-30-2016 End: 08-31-2016 Ambulatory GRADY DHALIWAL Facility:[facility] Procedures Date Procedure Procedure Detail Performing Clinician Start: 03-03-2024 Diagnostic radiograp hy of abdomen DO Cisco Blanc Work Phone: Start: 01-29-2024 CT of abdomen and pe lvis without contrast DO Cisco Blanc Work Phone: Appendectomy Didi Latoya Colonoscopy Didi Orze Plan of Treatment Date Care Activity Detail Author Start: 01-29-2024 CT Abdomen and Pelvi s WO contrast [facility] Start: 01-29-2024 CT of abdomen and pelvis without contrast CT abdomen pelvis wo con [facility] Patient Education [facility] Work Phone: Patient referral [facility] Work Phone: Immunizations Immunization Date Immunization Notes Care Provider [facility] 06-20-2021 influenza virus vaccine, unspecified formulation Didi Orzech [facility] 06-20-2021 SARS-CoV-2 (COVID-19 ) mRNA BNT-162b2 vax Didi Orzech [facility] 12-08-2020 SARS-CoV-2 (COVID-19 ) mRNA BNT-162b2 vax Didi Orzech [facility] 11-18-2020 SARS-CoV-2 (COVID-19 ) mRNA BNT-162j2 vax Didi Orzech [facility] 04-06-2020 influenza virus vaccine, unspecified formulation Didi Orzech [facility] 06-07-2019 influenza virus vaccine, unspecified formulation Didi Orzech [facility] 10-27-2013 tetanus toxoid, redu brock diphtheria toxoid, and acellular pertussis vaccine, adsorbed Didi Orzech [facility] Payers Date Payer Category Payer Self-pay [id number] 2022 Medicaid 2022 Unknown [id number] 2.1 [id number] 2021 Unknown [id number] 2021 Unknown [id number] 2021 Medicaid [id number] 2019 Unknown [id number] 1968 Unknown [id number] 2.16.84 [id number] 1968 Unknown [id number] 2.16.8 [id number] 1968 Unknown [id number] 2.16.8 [id number] 1968 Unknown [id number] 2.16.8 [id number] 1968 Unknown [id number] 2.16.8 [id number] 1968 Unknown [id number] 2.16.8 [id number] 1959 Private Health Insurance [id number] Medicaid [id number] Unknown [id number] 2.16.8 [id number] Unknown [id number] 2.16.8 [id number] Social History Date Type Detail Facility Unknown if ever smoked [facility] Other Sex Assigned At [facility] Start: 01-29-2024 End: 03-03-2024 Tobacco smoking status NHIS Smoker (finding) [facility] Start: 1970 Sex Assigned At Male [facility] Start: 02-02-2024 Tobacco smoking status Ex-smoker (fi nding) [facility] Tobacco smoking status Never [facility] Functional Status Date Assessment Result Facility 02-02-2024 Functional Status N/A [facility] Evaluation note 09-01-2021 Note Date & [...] Patient care instructions given in writting by [facility] Care At Home document. [facility] Other Evaluation note 08-11-2021 Note Date & [...] Patient care instructions given in writting by [facility] Care At Home document. [employer] Other Evaluation + Plan note Note Date & Type Note Facility Evaluation + Plan note Future Appointments Appointment Date:04/03/2024 01:00:00 PM Scheduled Provider:JOSEPH Allen APRN, Didi Martin Location:[facility] Appointment Type:URO Office Visit [facility] Evaluation note Note Date & Type Note Facility Evaluation note No assessment information availa ble [facility] Work Phone: History general Narrative - Reported Note Date & Type Note Facility History general Narrative - Reported Type Medical History insomnia Medical History anxiety Medical History HTN Surgical History appendix removed Surgical History compartment syndrome left hand 2016 Hospitalization History see surgical hx [employer] Other Hospital course Narrative Note Date & Type Note Facility Hospital course Narrative No data available for this section [facility] Hospital Discharge instructions Note Date & Type Note Facility Hospital Discharge instructions Additional Instructions Wear leg bag with Murray catheter Follow-up with urology Return if symptoms are worse [facility] Work Phone: Hospital Discharge instructions Note Date & Type Note Facility Hospital Discharge instructions No data available for this section [facility] Progress note Note Date & Type Note Facility Progress note No data available for this section [facility] Summary Purpose Family History No Family History [...] section and content) DATE CREATED AUTHOR 02/14/2018 [facility] DATE CREATED AUTHOR AUTHOR'S ORGANIZ ATION 03/29/2022 [facility] DATE CREATED AUTHOR AUTHOR'S ORGANIZ ATION 12/10/2023 [facility] DATE CREATED AUTHOR AUTHOR'S ORGANIZ ATION [facility]/24/2024 [facility] DATE CREATED AUTHOR AUTHOR'S ORGANIZ ATION 03/19/2024 [facility] DATE CREATED AUTHOR AUTHOR'S ORGANIZ ATION 04/02/2024 [facility] REASON FOR VISIT (unrecogniz ed section and [...] BE BASED ON THE PRIMARY CLINICAL RECORDS. [employer] [facility]. provides no warranty or guarantee of the accuracy or completeness of information in this document.
--- NOTE | 2024-04-04 01:31 | ED_ITS ---
HPI HPI - General Adult General Chief complaint: Neuro Symptoms/Deficit Stated complaint: hypertension Time Seen by Provider: 04/04/24 00:33 Source: patient Mode of arrival: walk-in History of Present Illness HPI narrative: This 53-year-old male with a history of hypertension and irritable bowel syndrome presents for evaluation of elevated blood pressure. The patient states that he takes MiraLAX every day to keep his bowels moving but has tenesmus and has trouble emptying his bowels and then gets abdominal cramps which radiate up into his chest and cause his blood pressure to go up and then cause blurred vi jamie. He was seen here several days ago for similar symptoms and treated with Catapres. The patient states he now feels like he is sick starting to experience anxiety related to the symptoms. He states that his living room does not have any windows and he is claustrophobic and when he is sitting there starting to think about his medical issues he starts to become more anxious and then his blood pressure continually increases. He has not followed up with his family physician regarding this thus far. He denies any chest pain or shortness of breath. He has no focal neurologic symptoms. He denies any abdominal pain at this time. He states he sat in his car for a period of time before coming into the emergency department and his blood pressure started to go down and while waiting to be seen at continue to go down further. Related Data Home Medications ?Medication ?Instructions ?Recorded ?Confirmed amlodipine 10 mg tablet 10 mg PO DAILY 03/11/24 03/11/24 amlodipine 5 mg tablet mg 04/02/24 Previous Rx's ?Medication ?Instructions ?Recorded dicyclomine 20 mg tablet 20 mg PO TID PRN abdominal pain #7 03/09/24 tabs docusate sodium 100 mg capsule 100 mg PO DAILY #20 caps 03/09/24 (Colace) metoclopramide HCl 10 mg tablet 10 mg PO Q6H PRN nausea and 03/09/24 (Reglan) vomiting 3 days #7 tabs ondansetron 4 mg disintegrating 4 mg PO Q4H PRN nausea and 03/09/24 tablet vomiting 3 days #6 tabs lidocaine 5 % topical cream 1 applic topical TID PRN pain #15 03/11/24 (RectiCare) grams meloxicam 15 mg tablet 15 mg PO DAILY PRN pain #10 tabs 03/11/24 nitroglycerin 0.4 % (w/w) rectal 1 inch NH BID #30 grams 03/13/24 ointment Allergies Allergy/AdvReac Type Severity Reaction Status Date / Time No Known Drug Allergies Allergy Verified 03/13/24 11:51 Opioid HPI Opioid Management Most Recent Opioid Data: Last Pain Scale 6 03/11/24 11:12 Review of Systems ROS Status of ROS 10 or more systems reviewed and unremark able except as noted in history and below Exam Narrative Exam Narrative: Vital signs and Nursing Notes reviewed: Initial blood pressure 164/106, patient has a normal pulse, he is not hypoxic with pulse ox of 97% on room air General: Awake, alert, oriented, somewhat anxious but otherwise well appearing male, no respiratory distress HEENT: Normocephalic atraumatic, mucous membranes are moist and pink, eyes are clear, normal conjunctiva, vision is grossly intact, posterior pharynx is normal in appearance. Neck: Supple, no JVD Chest: Lungs are clear to auscultation with good air entry, there is no wheezing rhonchi or rales appreciated no accessory muscle use, patient is speaking in complete sentences-no chest wall tenderness to palpation CVS: Regular rate and rhythm S1-S2, no murmurs rubs or gallops, pulses are brisk and equal bilaterally ABD: Soft, nondistended, nontender, no rebound guarding or rigidity, bowel sounds are normal, no pulsatile masses appreciated Extremities: Moving all extremities, no lower extremity tenderness or swelling noted, negative Homans' sign, pulses are brisk and equal bilaterally Skin: Normal in appearance without rash,pallor, petechiae or purpura Neuro: No focal deficits; speech is clear, there is no facial droop, upper and lower extremity strength and sensation are intact Constitutional Vital Signs, click to edit/add: Last Vital Signs Temp 98.2 F 04/04/24 00:29 Pulse 88 04/04/24 01:28 Resp 18 04/04/24 01:28 BP 154/100 H 04/04/24 01:28 Pulse Ox 97 04/04/24 01:28 O2 Del Method Room Air 04/04/24 00:29 Course Vital Signs Vital signs: Vital Signs Temperature 98.2 F 04/04/24 00:29 Pulse Rate 73 04/04/24 00:29 Respiratory Rate 18 04/04/24 00:29 Blood Pressure 164/106 H 04/04/24 00:29 Pulse Oximetry 96 04/04/24 00:29 Oxygen Delivery Method Room Air 04/04/24 00:29 Temperature 98.2 F 04/04/24 00:29 Pulse Rate 88 04/04/24 01:28 Respiratory Rate 18 04/04/24 01:28 Blood Pressure 154/100 H 04/04/24 01:28 Pulse Oximetry 97 04/04/24 01:28 Oxygen Delivery Method Room Air 04/04/24 00:29 Medical Decision Making MDM Narrative Medical decision making narrative: This 53-year-old male with a history of irritable bowel syndrome and hypertension presents for evaluation of abdominal cramps that he states are related to taking MiraLAX every day that caused him to have elevated blood pressure and then blurred vision. He was seen here several days ago and given Catapres. He complains of generalized anxiety disorder and claustrophobia stating that he does not have any windows in his living room and he states they are thinking about his medical problems and his blood pressure continues to increase. His blood pressure had already started to come down before being seen by me. It has been between 145 and 168 systolic. His physical exam is benign. He had a workup 2 days ago that was essentially normal. He received Catapres at that time and will be given a dose of Catapres tonight as well as a prescription for Catapres to use as needed for ongoing elevated blood pressure. He will also be given a dose of Ativan to take when he gets home tonight. He was encouraged to follow-up closely with his family physician for further evaluation and treatment of both elevated blood pressure and anxiety. Discharge Plan Discharge Stand Alone Forms: Portal Instructions Chief Complaint: Neuro Symptoms/Deficit Clinical Impression: Hypertension, Anxiety about health Patient Disposition: Home, Self-Care Time of Disposition Decision: 01:19 Condition: Good Prescriptions / Home Meds: No Action ondansetron 4 mg tablet,disintegrating 4 mg PO Q4H PRN (Reason: nausea and vomiting) 3 Days Qty: 6 0RF docusate sodium [Colace] 100 mg capsule 100 mg PO DAILY Qty: 20 0RF dicyclomine 20 mg tablet 20 mg PO TID PRN (Reason: abdominal pain) Qty: 7 0RF metoclopramide HCl [Reglan] 10 mg tablet 10 mg PO Q6H PRN (Reason: nausea and vomiting) 3 Days Qty: 7 0RF nitroglycerin 0.4 % (w/w) ointment 1 inch NH BID Qty: 30 0RF amlodipine 5 mg tablet amlodipine 10 mg tablet 10 mg PO DAILY lidocaine [RectiCare] 5 % cream 1 applic topical TID PRN (Reason: pain) Qty: 15 0RF meloxicam 15 mg tablet 15 mg PO DAILY PRN (Reason: pain ) Qty: 10 0RF Print Language: Maori Instructions: Chronic Hypertension (DC), Hypertension (ED) Referrals: MELY BONILLA [Primary Care Provider] - 1 week
[2024-04-04] MEDS: CLONIDINE HCL 0.1 MG TABLET PO (01:34)
[2024-04-04] MEDS: LORAZEPAM 0.5 MG TABLET PO (01:34)
== END 2024-04-04 01:40 | disposition home or self-care (01) ==
PROVIDERS: Emergency Provider Emergency Medicine; PCP Family Medicine
DX: F41.9 Anxiety disorder, unspecified (principal); I10 Essential (primary) hypertension
CPT/HCPCS: 99283

== ENCOUNTER 2024-05-04 11:15 | Emergency (ER) | payer OTHER, SELFPAY ==
[2024-05-04 11:19] VITALS: BP 166/92; PULSE 97; TEMP 37.1; O2SAT 96; BMI 12.2
--- NOTE | 2024-05-04 11:24 | ED.GENADUL1 ---
HPI HPI - General Adult General Chief complaint: Headache Stated complaint: HIGH BLOO PRESSURE, ABDOMINAL CRAMPING Time Seen by Provider: 05/04/24 11:24 Source: patient Mode of arrival: walk-in Limitations: no limitations History of Present Illness HPI narrative: The patient is coming to us with a concern of constipation, mentioned that he had no good bowel movement for the last 4 to 5 days, he denies any abdominal pain he had a good meal this morning with no difficulty swallowing or any other concerns, the patient also have no fever chills He initially mentioned having some headaches sometime when he is thinking about constipation and he mentioned that it raises his blood pressure At the moment the patient have no complaints Related Data Home Medications ?Medication ?Instructions ?Recorded ?Confirmed amlodipine 10 mg tablet 10 mg PO DAILY 03/11/24 03/11/24 amlodipine 5 mg tablet 5 mg PO .once daily 04/02/24 05/04/24 metoprolol tartrate 25 mg tablet 25 mg PO BID 05/04/24 05/04/24 Previous Rx's ?Medication ?Instructions ?Recorded dicyclomine 20 mg tablet 20 mg PO TID PRN abdominal pain #7 03/09/24 tabs docusate sodium 100 mg capsule 100 mg PO DAILY #20 caps 03/09/24 (Colace) metoclopramide HCl 10 mg tablet 10 mg PO Q6H PRN nausea and 03/09/24 (Reglan) vomiting 3 days #7 tabs ondansetron 4 mg disintegrating 4 mg PO Q4H PRN nausea and 03/09/24 tablet vomiting 3 days #6 tabs lidocaine 5 % topical cream 1 applic topical TID PRN pain #15 03/11/24 (RectiCare) grams meloxicam 15 mg tablet 15 mg PO DAILY PRN pain #10 tabs 03/11/24 nitroglycerin 0.4 % (w/w) rectal 1 inch [place] BID #30 grams 03/13/24 ointment magnesium citrate 300 ml PO DAILY PRN constipation 05/04/24 #296 mL Allergies Allergy/AdvReac Type Severity Reaction Status Date / Time No Known Drug Allergies Allergy Verified 05/04/24 11:22 Opioid HPI Opioid Management Most Recent Opioid Data: Last Pain Scale 6 03/11/24 11:12 Review of Systems ROS Status of ROS 10 or more systems reviewed and unremarkable except as noted in history and below PFSH PFSH Social History Little interest or pleasure in doing things: not at all Feeling down, depressed, or hopeless: not at all Exam Narrative Exam Narrative: Nurses notes and vital signs reviewed and patient is not hypoxic. General: Well-appearing and in no apparent distress. Skin: Warm, dry, no pallor noted. No rash. Head: Normocephalic, atraumatic. Neck: Supple, non-tender. Eye: Pupils are equal, round and EOMI. No scleral icterus. Ears, Nose, Mouth, and Throat: TM are clear, no nasal mucosal hypertrophy. Oral mucosa is moist, no posterior oropharynx erythema, uvula is mid-line Cardiovascular: Regular Rate and Rhythm without murmur, gallop or rub. Respiratory: No accessory muscle use or respiratory distress. Lungs are clear to auscultation, no wheezing, rales or rhonchi Chest Wall: no tenderness Back: No midline thoracic or lumbar vertebral tenderness. No CVA tenderness Musculoskeletal: normal ROM, no calf or popliteal tenderness, no lower extremity edema/swelling GI: Abdomen is soft, non-distended. Normal bowel sounds. No masses appreciated. No tenderness to palpation. No rebound, guarding, or rigidity noted. Neurological: A&O x4. No cranial nerve dysfunction observed. No truncal ataxia. Moves all extremities. Sensation intact. Psychiatric: Cooperative and interactive. Normal mood and affect. Constitutional Vital Signs, click to edit/add: Last Vital Signs Temp 98.8 F 05/04/24 11:19 Pulse 97 H 05/04/24 11:19 Resp 18 05/04/24 11:19 BP 166/92 H 05/04/24 11:19 Pulse Ox 96 05/04/24 11:19 O2 Del Method Room Air 05/04/24 11:19 Course Vital Signs Vital signs: Vital Signs Temperature 98.8 F 05/04/24 11:19 Pulse Rate 97 H 05/04/24 11:19 Respiratory Rate 18 05/04/24 11:19 Blood Pressure 166/92 H 05/04/24 11:19 Pulse Oximetry 96 05/04/24 11:19 Oxygen Delivery Method Room Air 05/04/24 11:19 Temperature 98.8 F 05/04/24 11:19 Pulse Rate 97 H 05/04/24 11:19 Respiratory Rate 18 05/04/24 11:19 Blood Pressure 166/92 H 05/04/24 11:19 Pulse Oximetry 96 05/04/24 11:19 Oxygen Delivery Method Room Air 05/04/24 11:19 Medical Decision Making MDM Narrative Medical decision making narrative: The patient does have history of constipation, he presented to us multiple times for anxiety treatment as well although he is not having any diagnosed with anxiety The patient constipation will be treated with magnesium citrate He did requested Ativan which she was given last time he was here but I did explain to him that it is addictive. On although right now I can give him 1 dose just to help him with his symptoms the patient will need to follow-up with his primary care for an actual diagnosis of anxiety I did explain to the patient the side effect of being evaluated multiple times for anxiety in the ER with no actual diagnosis of anxiety The patient is to follow up with primary care physician in next 2-3 days or to return to the emergency department should any of the signs or symptoms worsen or new symptoms develop. The patient agrees with the following Diagnosis and Treatment plan and the patient will be discharged home. Discharge Plan Discharge Chief Complaint: Headache Clinical Impression: Constipation, Anxiety Patient Disposition: Home, Self-Care Time of Disposition Decision: 11:47 Condition: Good Prescriptions / Home Meds: New magnesium citrate Solution 300 ml PO DAILY PRN (Reason: constipation) Qty: 296 0RF No Action ondansetron 4 mg tablet,disintegrating 4 mg PO Q4H PRN (Reason: nausea and vomiting) 3 Days Qty: 6 0RF docusate sodium [Colace] 100 mg capsule 100 mg PO DAILY Qty: 20 0RF dicyclomine 20 mg tablet 20 mg PO TID PRN (Reason: abdominal pain) Qty: 7 0RF metoclopramide HCl [Reglan] 10 mg tablet 10 mg PO Q6H PRN (Reason: nausea and vomiting) 3 Days Qty: 7 0RF nitroglycerin 0.4 % (w/w) ointment 1 inch MS BID Qty: 30 0RF amlodipine 5 mg tablet 5 mg PO .once daily amlodipine 10 mg tablet 10 mg PO DAILY lidocaine [RectiCare] 5 % cream 1 applic topical TID PRN (Reason: pain) Qty: 15 0RF meloxicam 15 mg tablet 15 mg PO DAILY PRN (Reason: pain ) Qty: 10 0RF metoprolol tartrate 25 mg tablet 25 mg PO BID Print Language: Bahamian Instructions: Constipation (DC), Anxiety (ED) Referrals: MELY BONILLA [Primary Care Provider] - 1 week
--- OUTSIDE RECORDS SUMMARY | 2024-05-04 11:25 | XMS_ITS | CCD ---
Author Organization [facility] Care Team Providers Care Letterpress Setter Name Role Phone OSINOWO, OSIYEMI Unavailable Unavailable [...] Emergency Provider CISCO BLANC Primary Care Physician JENNYFER AUGUSTIN Admitting Unavailable JENNYFER AUGUSTIN Attending [...] Propensity to adverse reactions (disorder) [facility] Repository Medications Current Medications Medication Drug Class(es) Dates Sig (Normalized) Sig (Original) amLODIPine 5 mg oral tablet (6 sources) Dihydropyridine Calcium Channel Catherine Start: 08-19-2019 [...] Active metoprolol tartrate 25 mg oral tablet (4 sources) beta-Adrenergic Catherine Start: 02-02-2024 take 1 tablet by mouth once daily Lopressor 25 mg oral tablet 25 mg = 1 tab(s), Oral, Daily, Refills(s) 0 Start Date: 02/02/24 Status: Ordered Metoprolol Tartr ate Active nitrofurantoin, macrocrystals 25 mg / nitrofurantoin, monohydrate 75 mg oral capsule (4 sources) Nitrofuran Antibacterial Start: 01-30-2024 End: 03-03-2024 nitrofurantoin macrocrystals-monohydrate 100 mg Cap Refills(s) 0 Start Date: 02/02/24 Status: Ordered Sertraline (2 sources) Serotonin Reuptake Inhibitor Sertraline HCl Activ e tamsulosin hydrochloride 0.4 mg oral capsule (3 sources) alpha-Adrenergi c Catherine Start: 02-02-2024 take 0.4 mg by mouth once daily Tamsulosin Active 0.4 MG PO Daily March 03, 2024 12:00am 1 ml testosterone cypionate 200 mg/ml injection [...] Onset: 03-26-20 Episodic Disorders of lipid metabolism (2 sources) Hypercholesterolemia 02-02-2024 Chronic Diverticulosis and diverticulitis (2 sources) Diverticulosis of large intestine without perforation or abscess without bleeding; Translations: [Diverticulosis of intestine, part unspecified, without perforation or abscess without bleeding] Onset: 03-29-20 Chronic Essential hypertension (2 sources) Hypertensive disorder 02-02-2024 Chronic Fluid and electrolyte disorders (2 sources) Hyperkalemia; Translations: [Dehydration] Onset: 08-30-19 17 03-03-2024 Episodic Genitourinary symptoms and ill-defined conditions (6 sources) Acute retention of urine ; Translations: [Other retention of urine] Onset: 02-02-20 24 01-30-2024 Episodic Hyperplasia of prostate (2 sources) Benign prostatic hypertrophy without outflow obstruction; Translations: [Benign prostatic hyperplasia without lower urinary tract symptoms] Onset: 02-02-20 Chronic Other gastrointestinal disorders (1 source) Change in bowel habit; Translations: [Change in bowel habit] Onset: 02-06-20 24 Episodic Other gastrointestinal disorders (1 source) Acute constipation; Translations: [Constipation, unspecified] 03-03-2024 Episodic Other gastrointestinal disorders (1 source) Increased frequency of defecation 02-07-2024 Episodic Other injuries and conditions due to external causes (2 sources) Injury of head 02-02-2024 Episodic Other nutritional; endocrine; and metabolic disorders (1 source) Body mass index (BMI) 33.0-33.9, adult; Translations: [BODY MASS INDEX BMI 33.0-33.9 ADULT] Onset: 03-29-20 Chronic Other nutritional; endocrine; and metabolic disorders (1 source) Overweight; Translations: [OVERWEIGHT] Onset: 03-29-20 Episodic Schizophrenia and other psychotic disorders (2 sources) Paranoid disorder; Translations: [Delusional disorders] 08-03-2023 Chronic Substance-related disorders (5 sources) Nicotine dependence, cigarettes, uncomplicated; Translations: [Polysubstance abuse ] Onset: 03-29-2008-03-2023 Chronic Unclassified (2 sources) Unknown / UNK(Unknown) Onset: 08-30-19 17 Unclassified (1 source) change in bowel habits Onset: 02-17-20 24 Unclassified (1 source) Patient encounter status 02-07-2024 Past or Other Problems Problem Classification Problem [...] Basophils/100 WBC (Bld) 0.4 % Normal . [facility] Comment on above: Performed By: #### B MP, SCAN CBC #### [facility] [address] [place] [address] Automated basophil countOrde red By: James De on 03-03-2024 Basophils (Bld) [#/Vol] 0.0 10*3/uL Normal 0.0-0.2 [facility] Comment on above: Performed By: #### B MP, SCAN CBC #### [facility] [address] [place] [address] Automated blood monocyte cou ntOrdered By: James De on 03-03-2024 Monocytes (Bld) [#/Vol] 0.8 10*3/uL Normal 0.0-0.8 [facility] Comment on above: Performed By: #### B MP, SCAN CBC #### [facility] [address] [place] [address] Automated eosinophil %Ordere d By: James De on 03-03-2024 Eosinophils/100 WBC (Bld) 2.6 % Normal . [facility] Comment on above: Performed By: #### B MP, SCAN CBC #### [facility] [address] [place] [address] Automated eosinophil countOr dered By: James De on 03-03-2024 Eosinophils (Bld) [#/Vol] 0.2 10*3/uL Normal 0.0-0.45 [facility] Comment on above: Performed By: #### B MP, SCAN CBC #### [facility] [address] [place] [address] Automated monocyte %Ordered By: James De on 03-03-2024 Monocytes/100 WBC (Bld) 8.7 % Normal . [facility] Comment on above: Performed By: #### B MP, SCAN CBC #### [facility] [address] [place] [address] Automated neutrophil %Ordere d By: James De on 03-03-2024 Neutrophils/100 WBC (Bld) 74.9 % Normal . [facility] Comment on above: Performed By: #### B MP, SCAN CBC #### [facility] [address] Bacteria [Presence] in Urine by AutomatedOrdered By: Nish Davidson on 03-03-2024 Bacteria Auto Ql (U) None seen [HPF] None Seen [facility] Basic Metabolic Panelon 02-19 Creatinine Clr Calc Pharmacy 68.43 Normal [facility] Comment on above: Result Comment: PERF ORMED BY: [place] [address] PATHOLOGIST USED [employer] GAURAV CONWAY M.D. Performed By: #### B MP, SCAN CBC #### [facility] [address] [place] [address] [place] GFR/1.73 sq M.predicted MDRD (S/P/Bld) [Vol rate/Area] mL/min/{1.73_m2} Normal [facility] Comment on above: Performed By: #### B MP, SCAN CBC #### [facility] [address] [place] [address] Bilirubin Test strip Ql (U)O rdered By: Nish Davidson on 03-03-2024 Bilirubin Ql (U) Negative Negative [facility] Calcium [Mass/volume] in Ser um or PlasmaOrdered By: James De on 03-03-2024 Calcium [Mass/Vol] 9.5 mg/dL Normal 8.6-10.3 [facility] Comment on above: Performed By: #### B MP, SCAN CBC #### [facility] [address] [place] [address] [place] Carbon dioxide, total [Moles /volume] in Serum or PlasmaOrdered By: James De on 03-03-2024 CO2 [Moles/Vol] 25.3 mmol/L Normal 21.0-31.0 [facility] Comment on above: Performed By: #### B MP, SCAN CBC #### [facility] [address] [place] [address] [place] Chloride [Moles/volume] in S dereje or PlasmaOrdered By: James De on 03-03-2024 Chloride [Moles/Vol] 102 mmol/L Normal 98-107 [facility] Comment on above: Performed By: #### B MP, SCAN CBC #### [facility] [address] [place] [address] [facility] Color of Urine by AutoOrdere d By: Nish Davidson on 03-03-2024 Color (U) Yellow Normal Yellow [facility] Comment on above: Order Comment: Name Collection Type:: Voided Performed By: #### A DDONUAPLUS ####[address] [address] [facility] Creatinine [Mass/volume] in Serum or PlasmaOrdered By: James De on 03-03-2024 Creatinine [Mass/Vol] 1.18 mg/dL Normal 0.70-1.30 [facility] Comment on above: Performed By: #### B MP, SCAN CBC #### [facility] [address] [place] [address] [place] Dipstick and Microscopicon 0 03-03-2024 Bacteria,Urine None Seen Normal None Seen [facility] Comment on above: Order Comment: Name Collection Type:: Voided Performed By: #### A DDONUAPLUS ####[address] [address] [facility] Bilirubin,Urine Negative Normal Negative [facility] Comment on above: Order Comment: Name Collection Type:: Voided Performed By: #### A DDONUAPLUS ####[address] [address] [facility] Glucose Ql (U) Normal Normal Normal [facility] Comment on above: Order Comment: Name Collection Type:: Voided Performed By: #### A DDONUAPLUS ####[address] [address] [place] Hyaline Casts,Urine 0-8 Normal 0-8 [facility] Comment on above: Order Comment: Name Collection Type:: Voided Performed By: #### A DDONUAPLUS ####[address] [address] [place] Mucus,Urine 1+ Critically abnormal [facility] Comment on above: Order Comment: Name Collection Type:: Voided Result Comment: PERF ORMED BY: [facility] [address] [place] [id number] PATHOLOGIST USED [employer] GAURAV CONWAY M.D. Performed By: #### A DDONUAPLUS ####[address] [address] [facility] Nitrite,Urine Negative Normal Negative [facility] Comment on above: Order Comment: Name Collection Type:: Voided Performed By: #### A DDONUAPLUS ####[address] [address] [facility] Occult Blood,Urine Negative Normal Negative [facility] Comment on above: Order Comment: Name Collection Type:: Voided Result Comment: PERF ORMED BY: [facility] [address] [address] PATHOLOGIST USED [employer] GAURAV CONWAY M.D. Performed By: #### A DDONUAPLUS ####[address] [address] [facility] Protein,Urine Trace High Negative [facility] Comment on above: Order Comment: Name Collection Type:: Voided Performed By: #### A DDONUAPLUS ####[address] [address] [facility] RBC,Urine None Seen Normal 0-4 [facility] Comment on above: Order Comment: Name Collection Type:: Voided Performed By: #### A DDONUAPLUS ####[address] [address] [facility] Specificy Baker,Urine 1.015 Normal 1.001-1.030 [facility] Comment on above: Order Comment: Name Collection Type:: Voided Performed By: #### A DDONUAPLUS ####[address] [address] [facility] Squamous Epithelial Cell,Urine 1-2 Normal 0-2 [facility] Comment on above: Order Comment: Name Collection Type:: Voided Performed By: #### A DDONUAPLUS ####[address] [address] [facility] Urobilinogen,Urine Normal Normal Normal [facility] Comment on above: Order Comment: Name Collection Type:: Voided Performed By: #### A DDONUAPLUS ####[facility] Urothelial Cells 1-2 High 0-1 [facility] Comment on above: Order Comment: Name Collection Type:: Voided Performed By: #### A DDONUAPLUS ####[facility] WBC,Urine 1-2 Normal 0-4 [facility] Comment on above: Order Comment: Name Collection Type:: Voided Performed By: #### A DDONUAPLUS ####[place] [address] [address] Epithelial cells.squamous [# /area] in Urine sediment by Automated countOrdered By: Nish Davidson on 03-03-2024 Epithelial cells.squamous Auto (Urine sed) [#/Area] 1-2 [HPF] 0-2 [facility] Erythrocyte distribution wid th [Ratio] by Automated countOrdered By: James De on 03-03-2024 Erythrocyte distribution width (RBC) [Ratio] 12.6 % Normal 12.0-14.8 [facility] Comment on above: Performed By: #### B MP, SCAN CBC #### [facility] [address] Erythrocytes [#/area] in Uri ne sediment by Automated countOrdered By: Nish Davidson on 03-03-2024 RBC Auto (Urine sed) [#/Area] None seen [HPF] 0-4 [facility] Erythrocytes [#/volume] in B lood by Automated countOrdered By: James De on 03-03-2024 RBC (Bld) [#/Vol] 5.64 10*6/uL High 3.90-5.60 [facility] Comment on above: Performed By: #### B MP, SCAN CBC #### [facility] [address] Glucose [Mass/volume] in Ser um or PlasmaOrdered By: James De on 03-03-2024 Glucose [Mass/Vol] 83 mg/dL Normal 70-100 [facility] Comment on above: ADA recommended refe rence rangeRandom Glucose Reference Range is dependent on time and content of last meal. Glucose of more than 200 mg/dL in a nonstressed, ambulatory subject supports the diagnosis of Diabetes Mellitus. Result Comment: [place] Glucose Reference Range is dependent on time and content of last meal. Glucose of more than 200 mg/dL in a nonstressed, ambulatory subject supports the diagnosis of Diabetes Mellitus. ADA recommended reference range Performed By: #### B MP, SCAN CBC #### [facility] [address] [place] [address] [place] Glucose [Mass/volume] in Uri ne by Test stripOrdered By: Nish Davidson on 03-03-2024 Glucose Test strip (U) [Mass/Vol] Normal mg/dL Normal [facility] Hematocrit [Volume Fraction] of Blood by Automated countOrdered By: James De on 03-03-2024 Hematocrit (Bld) [Volume fraction] 52.6 % High 38.8-50.0 [facility] Comment on above: Performed By: #### B MP, SCAN CBC #### [facility] [address] Hemoglobin Test strip Ql (U) Ordered By: Nish Davidson on 03-03-2024 Hemoglobin Ql (U) Negative Negative [facility] Hemoglobin [Mass/volume] in BloodOrdered By: James De on 03-03-2024 Hemoglobin (Bld) [Mass/Vol] 18.5 g/dL High 13.0-17.0 [facility] Comment on above: Performed By: #### B MP, SCAN CBC #### [facility] [address] [place] [address] [place] Hyaline casts [#/area] in Ur ine sediment by Automated countOrdered By: Nish Davidson on 03-03-2024 Hyaline casts Auto (Urine sed) [#/Area] 0-8 [LPF] 0-8 [facility] Ketones [Presence] in Urine by Test stripOrdered By: Nish Davidson on 03-03-2024 Ketones Ql (U) 2+ High Negative [facility] Comment on above: Order Comment: Name Collection Type:: Voided Performed By: #### A DDONUAPLUS ####[facility] Leukocyte esterase [Presence ] in Urine by Test stripOrdered By: Nish Davidson on 03-03-2024 Leukocyte esterase Test strip Ql (U) Negative Normal Negative [facility] Comment on above: Order Comment: Name Collection Type:: Voided Performed By: #### A DDONUAPLUS ####[address] Leukocytes [#/area] in Urine sediment by Automated countOrdered By: Nish Davidson on 03-03-2024 WBC Auto (Urine sed) [#/Area] 1-2 [HPF] 0-4 [facility] Leukocytes [#/volume] correc ernst for nucleated erythrocytes in Blood by Automated counOrdered By: James De on 03-03-2024 WBC corrected for nucl RBC Auto (Bld) [#/Vol] 9.0 10*3/uL 4.1-10.5 [facility] Leukocytes [#/volume] in Blo od by Automated countOrdered By: James De on 03-03-2024 WBC (Bld) [#/Vol] 9.0 10*3/uL Normal 4.1-10.5 [facility] Comment on above: Performed By: #### B MP, SCAN CBC #### [facility] [address] [place] [address] [place] Lymphocytes [#/volume] in Bl ood by Automated countOrdered By: James De on 03-03-2024 Lymphocytes (Bld) [#/Vol] 1.2 10*3/uL Normal 1.00-4.8 [facility] Comment on above: Performed By: #### B MP, SCAN CBC #### [facility] [address] [place] [address] [place] Lymphocytes/100 leukocytes i n Blood by Automated countOrdered By: James De on 03-03-2024 Lymphocytes/100 WBC (Bld) 13.4 % Normal . [facility] Comment on above: Performed By: #### B MP, SCAN CBC #### [facility] [address] MCH [Entitic mass] by Automa ernst countOrdered By: James De on 03-03-2024 MCH (RBC) [Entitic mass] 32.8 pg Normal 27.5-35.2 [facility] Comment on above: Performed By: #### B MP, SCAN CBC #### [facility] [address] MCHC Auto (RBC) [Mass/Vol]Or dered By: James De on 03-03-2024 MCHC (RBC) [Mass/Vol] 35.1 g/dL 32.5-35.6 [facility] MCV [Entitic volume] by Auto mated countOrdered By: James De on 03-03-2024 MCV (RBC) [Entitic vol] 93.4 fL Normal 83.5-101 [facility] Comment on above: Performed By: #### B MP, SCAN CBC #### [facility] [address] Monocyte distribution width [Entitic volume] in Blood by AutomatedOrdered By: James De on 03-03-2024 Monocyte distribution width Auto (Bld) [Entitic vol] 17.08 % 0.00-20.00 [facility] Mucus [Presence] in Urine by AutomatedOrdered By: Nish Davidson on 03-03-2024 Mucus Auto Ql (U) 1+ [LPF] Abnormal [facility] Neutrophils [#/volume] in Bl ood by Automated countOrdered By: James De on 03-03-2024 Neutrophils (Bld) [#/Vol] 6.7 10*3/uL Normal 1.8-7.7 [facility] Comment on above: Performed By: #### B MP, SCAN CBC #### [facility] [address] Nitrite Test strip Ql (U)Ord ered By: Nish Davidson on 03-03-2024 Nitrite Ql (U) Negative Negative [facility] No Panel InformationOrdered By: James De on 03-03-2024 Estimated GFR (CKD-EPI) > 60.0 mL/Min [facility] Creatinine Clearance (Chem 68.43 [facility] Nucleated erythrocytes [Pres ence] in Blood by Automated countOrdered By: James De on 03-03-2024 Nucleated RBC Auto Ql (Bld) 0.4 /100{WBC} 0-0.5 [facility] Platelet adequacy [Presence] in Blood by Light microscopyOrdered By: James De on 03-03-2024 Platelets LM Ql (Bld) Normal Normal [facility] Platelet mean volume [Entiti c volume] in Blood by Automated countOrdered By: James De on 03-03-2024 Platelet mean volume (Bld) [Entitic vol] 8.4 fL Normal 6.6-10.1 [facility] Comment on above: Performed By: #### B MP, SCAN CBC #### [facility] [address] Platelet morphology finding [Identifier] in BloodOrdered By: James De on 03-03-2024 Platelet morphology finding Nom (Bld) Normal Normal [facility] Platelets [#/volume] in Bloo d by Automated countOrdered By: James De on 03-03-2024 Platelets (Bld) [#/Vol] 207 10*3/uL Normal 150-450 [facility] Comment on above: Performed By: #### B MP, SCAN CBC #### [facility] [address] [place] [address] [place] Potassium [Moles/volume] in Serum or PlasmaOrdered By: James De on 03-03-2024 Potassium [Moles/Vol] 3.7 mmol/L Normal 3.5-5.1 [facility] Comment on above: Performed By: #### B MP, SCAN CBC #### [facility] [address] [place] [address] [place] Protein Test strip (U) [Mass /Vol]Ordered By: Nish Davidson on 03-03-2024 Protein (U) [Mass/Vol] Trace mg/dL High Negative [facility] RBC morphologyOrdered By: Asad De on 03-03-2024 RBC morphology finding Nom (Bld) Normal Normal Normal [facility] Comment on above: Performed By: #### B MP, SCAN CBC #### [address] Scan and CBCon 03-03-2024 Mean Corpuscular HGB Conc 35.1 g/dL Normal 32.5-35.6 [facility] Comment on above: Performed By: #### B MP, SCAN CBC #### [address] Monocytes/100 WBC (Bld) 17.08 % Normal 0.00-20.00 [facility] Comment on above: Performed By: #### B MP, SCAN CBC #### [address] NRBC% 0.4 /100{WBC} Normal 0-0.5 [facility] Comment on above: Performed By: #### B MP, SCAN CBC #### [address] Platelet Estimate Normal Normal Normal [facility] Comment on above: Performed By: #### B MP, SCAN CBC #### [facility] [address] [place] [address] Platelet Morphology Normal Normal Normal [facility] Comment on above: Result Comment: PERF ORMED BY: [place] [address] PATHOLOGIST USED [employer] GAURAV CONWAY M.D. Performed By: #### B MP, SCAN CBC #### [facility] [address] [place] [address] Serum or plasma anion gap de terminationOrdered By: James De on 03-03-2024 Anion gap [Moles/Vol] 12.4 mmol/L Normal 6.0-15.0 [facility] Comment on above: Performed By: #### B MP, SCAN CBC #### [facility] [address] [place] [address] [place] Sodium [Moles/volume] in Ser um or PlasmaOrdered By: James De on 03-03-2024 Sodium [Moles/Vol] 136 mmol/L Normal 136-145 [facility] Comment on above: Performed By: #### B MP, SCAN CBC #### [facility] [address] Specific gravity Test strip (U) [Rel density]Ordered By: Nish Davidson on 03-03-2024 Specific gravity (U) [Rel density] 1.015 1.001-1.030 [facility] Transitional cells [#/area] in Urine by Computer assisted methodOrdered By: Nish Davidson on 03-03-2024 Transitional cells Computer assisted (U) [#/Area] 1-2 [HPF] High 0-1 [facility] Urea nitrogen [Mass/volume] in Serum or PlasmaOrdered By: James De on 03-03-2024 Urea nitrogen [Mass/Vol] 8 mg/dL Normal 7-25 [facility] Comment on above: Performed By: #### B MP, SCAN CBC #### [facility] [address] [place] [address] Urine appearanceOrdered By: Nish Davidson on 03-03-2024 Appearance (U) Clear Normal Clear [facility] Comment on above: Order Comment: Name Collection Type:: Voided Performed By: #### A DDONUAPLUS ####[facility] [address] [place] [address] Urobilinogen Test strip (U) [Mass/Vol]Ordered By: Nish Davidson on 03-03-2024 Urobilinogen (U) [Mass/Vol] Normal mg/dL Normal [facility] XR KUBon 03-03-2024 XR KUB [facility] [place] [address] [place] [address] XRay Report Signed Patient: Harlan Russell MR#: [id number] 2 : 1970 Acct:[id number] Age/Sex: 53 / M ADM Date: 03/03/24 Loc: ER Room: Type: [facility] ER Attending Dr: Copies to: James [...] Dante Lisa M.D.03/03/2024 2:38 PM Dictation Location: [place] [address] Transcribed By: [facility] 03/03/24 1438 Dictated By: Dante Lisa II, MD 03/03/241436 Signed By: 03/03/24 1438 Normal [facility] pH of Urine by Test stripOrd ered By: Nish Davidson on 03-03-2024 pH (U) 6.0 [pH] Normal 5.0-9.0 [facility] Comment on above: Order Comment: Name Collection Type:: Voided Performed By: #### A DDONUAPLUS ####[facility] [id number] [place] [id number] [facility] Surgical Pathologyon 024 Surgical Pathology Normal [facility] Comment on above: Result Comment: [facility] [address] [place] [address] Surgical Pathology Consultation Patient Name:HARLAN RUSSELL:1970 (Age: 53)Gender:MTaken:4Reported:4Physician(s):Jennyfer Augustin MD ([phone])Copy To: Rec. #:[id number]: #[id number] Final Pathologic Diagnosis 1. Colon polyp 55cm: Hyperplastic polyp. 2. Colon polyp 35cm: Tubular adenoma. Report Electronically Signed Out st02/22/2024Keren Bee MD Interpretation performed at [facility], [address] [place], [address], License number: [id number]. Clinical History Change in bowel habits. Gross Description 1. Received in formalin labeled, NOFTZ, 55 cm is a mccray-richardson 0.3 cm soft tissue.. The specimen is filtered and entirely submitted in a single cassette. (1, ns, [id number], m8) SM 2. Received in formalin labeled, NOFTZ, 35 cm is a pale richardson 0.3 cm the specimen is filtered and entirely submitted in a single cassette. (1, ns, [id number], m8) SM /02/20/2024GR Specimen(s) Received 1: Colon polyp 55cm 2: Colon polyp 35cm Fee Codes(s): 1; 78667 2; 16959 Patient Educationon 02-07-20 Patient Education Oncology Cancer [...] if anything looks unusual. Men with a wkwqxg-zxiq-gytrqw risk for skin cancer may want to see a piercing specialist (prescription clerk) for an annual body check. What are the benefits of screening? Cancer screening is done to look for cancer in the very early stages, before it spreads and becomes harder to treat and before you would start to notice symptoms. Finding cancer early improves the chances of successful treatment. It ma (more content not included)... Normal [facility] Urology Office/Clinic Noteon 02-07-2024 Urology Office/Clinic Note Chief Complaint Pt is here for urinary retention [facility] f/u HPI Staff Harlan is a 53 y.o. male here for [facility] f/u, urinary retention. Pt presented to [facility] [place]24 due to inability to urinate. PVR done @ [facility] showed 900cc of urine, Murray [...] with voice recognition artificial intelligence software, specifically VenueSpot, DailyBurn and or [address]. Substitutions may have occurred due to the [...] Urinary retention (R33.9: Retention of urine, unspecified) [facility] [place] - detoxing from benzos, [...] diphtheria/pertuss is, acel/tetanus adult 10/27/2013 Recorded Normal [facility] Comment on above: Result Comment: Elec tronically Signed By: JOSEPH Allen APRN, Didi Martin\.br\Date and Time Signed: 02/07/24 23:06 EDT ED Note-Physicianon 02-03-20 ED Note-Physician [id number]#1.00TIFF [facility] Formson 02-03-2024 Forms [id number]#1.00TIFF [facility] Screenson 02-03-2024 Screens [id number]#1.00TIFF Normal [facility] Screens [id number]#1.00TIFF [facility] Ambulatory Visit Summaryon 0 02-02-2024 Ambulatory Visit Summary HARLAN RUSSELL :1970 Visit Date:02/02/2024 Ambulatory Visit Instructions Your Diagnosis Urinary retention Your Care Team Attending Physician - JOSEPH Allen APRN, [place] X Primary Care Physician - CISCO BLANC DO [...] you for choosing us for your care. [facility] Ambulatory Visit Summary HARLAN RUSSELL :1970 Visit Date:02/02/2024 Ambulatory Visit Instructions Your Diagnosis Urinary retention Your Care Team Attending Physician - JOSEPH Allen APRN, [place] X Primary Care Physician - CISCO BLANC DO [...] you for choosing us for your care. Normal [facility] CT abdomen pelvis wo conon 0 01-30-2024 CT abdomen pelvis wo con [facility] [place] [address] CT Scan Report Signed Patient: Harlan Russell MR#: [id number] 2 : 1970 Acct:[id number] Age/Sex: 53 / M ADM Date: 01/29/24 Loc: ER Room: Type: [facility] ER Attending Dr: Copies to: Jennyfer [...] Anni Whitley M.D.01/30/2024 8:58 AM Dictation Location: [place] [address] Transcribed By: MAGDIEL 01/30/24 0858 Dictated By: Anni Whitley MD 01/30/24 0851 Signed By: 01/30/24 0858 Normal [facility] Alanine aminotransferase [En zymatic activity/volume] in Serum or PlasmaOrdered By: Jennyfer Winkler on 01-29-2024 ALT [Catalytic activity/Vol] 24 U/L Normal [facility] Comment on above: Performed By: #### H EPATIC, LIPASE, DIFF CBC, GLADYS, BMP #### [address] Albumin [Mass/volume] in Ser um or Plasma by Bromocresol green (BCG) dye binding methoOrdered By: Jennyfer Winkler on 01-29-2024 Albumin BCG dye [Mass/Vol] 4.9 g/dL 3.5-5.7 [facility] Alkaline phosphatase [Enzyma tic activity/volume] in Serum or PlasmaOrdered By: Jennyfer Winkler on 01-29-2024 ALP [Catalytic activity/Vol] 96 U/L Normal 34-104 [facility] Comment on above: Performed By: #### H EPATIC, LIPASE, DIFF CBC, GLADYS, BMP #### [facility] [address] [place] [address] Amylase [Enzymatic activity/ volume] in Serum or PlasmaOrdered By: Jennyfer Winkler on 01-29-2024 Amylase [Catalytic activity/Vol] 47 U/L Normal 29-103 [facility] Comment on above: Performed By: #### H EPATIC, LIPASE, DIFF CBC, GLADYS, BMP #### [address] Aspartate aminotransferase [ Enzymatic activity/volume] in Serum or PlasmaOrdered By: Jennyfer Winkler on 01-29-2024 AST [Catalytic activity/Vol] 21 U/L Normal 13-39 [facility] Comment on above: Performed By: #### H EPATIC, LIPASE, DIFF CBC, GLADYS, BMP #### [address] Basic Metabolic Panelon Creatinine Clr Calc Pharmacy 83.32 Normal [facility] Comment on above: Performed By: #### H EPATIC, LIPASE, DIFF CBC, GLADYS, BMP #### [address] GFR/1.73 sq M.predicted MDRD (S/P/Bld) [Vol rate/Area] mL/min/{1.73_m2} Normal [facility] Comment on above: Performed By: #### H EPATIC, LIPASE, DIFF CBC, GLADYS, BMP #### [facility] [address] [place] [address] Basophils Auto (Bld) [#/Vol] Ordered By: Jennyfer Winkler on 01-29-2024 Basophils (Bld) [#/Vol] N/A [facility] Basophils/100 WBC Auto (Bld) Ordered By: Jennyfer Winkler on 01-29-2024 Basophils/100 WBC (Bld) N/A [facility] Bilirubin Test strip Ql (U)O rdered By: Jennyfer Winkler on 01-29-2024 Bilirubin Ql (U) Negative Negative [facility] Bilirubin.direct [Mass/volum e] in Serum or PlasmaOrdered By: Jennyfer Winkler on 01-29-2024 Bilirubin.direct [Mass/Vol] 0.10 mg/dL 0.03-0.18 [facility] Bilirubin.total [Mass/volume ] in Serum or PlasmaOrdered By: Jennyfer Winkler on 01-29-2024 Bilirubin [Mass/Vol] 0.8 mg/dL Normal 0.3-1.0 [facility] Comment on above: Performed By: #### H EPATIC, LIPASE, DIFF CBC, GLADYS, BMP #### [facility] [address] [place] [address] [place] Calcium [Mass/volume] in Ser um or PlasmaOrdered By: Jennyfer Winkler on 01-29-2024 Calcium [Mass/Vol] 10.2 mg/dL Normal 8.6-10.3 [facility] Comment on above: Performed By: #### H EPATIC, LIPASE, DIFF CBC, GLADYS, BMP #### [facility] [address] [place] [address] [place] Carbon dioxide, total [Moles /volume] in Serum or PlasmaOrdered By: Jennyfer Winkler on 01-29-2024 CO2 [Moles/Vol] 26.4 mmol/L Normal 21.0-31.0 [facility] Comment on above: Performed By: #### H EPATIC, LIPASE, DIFF CBC, GLADYS, BMP #### [facility] [address] [place] [address] [place] Chloride [Moles/volume] in S dereje or PlasmaOrdered By: Jennyfer Winkler on 01-29-2024 Chloride [Moles/Vol] 98 mmol/L Normal 98-107 [facility] Comment on above: Performed By: #### H EPATIC, LIPASE, DIFF CBC, GLADYS, BMP #### [facility] [address] [place] [address] [place] Color of Urine by AutoOrdere d By: Jennyfer Winkler on 01-29-2024 Color (U) Colorless Normal Yellow [facility] Comment on above: Order Comment: Name Collection Type:: Murray Catheter Performed By: #### U A #### [address] Creatinine [Mass/volume] in Serum or PlasmaOrdered By: Jennyfer Winkler on 01-29-2024 Creatinine [Mass/Vol] 1.07 mg/dL Normal 0.70-1.30 [facility] Comment on above: Performed By: #### H EPATIC, LIPASE, DIFF CBC, GLADYS, BMP #### [address] Diff and CBCon 01-29-2024 Giant Platelet Tally 1 /100{WBC} Normal [facility] Comment on above: Performed By: #### H EPATIC, LIPASE, DIFF CBC, GLADYS, BMP #### [address] Mean Corpuscular HGB Conc 35.0 g/dL Normal 32.5-35.6 [facility] Comment on above: Performed By: #### H EPATIC, LIPASE, DIFF CBC, GLADYS, BMP #### [address] Monocytes/100 WBC (Bld) 18.41 % Normal 0.00-20.00 [facility] Comment on above: Result Comment: PERF ORMED BY: [place] [address] PATHOLOGIST USED [employer] Y[employer] WORKER GAURAV CONWAY M.D. Performed By: #### H EPATIC, LIPASE, DIFF CBC, GLADYS, BMP #### [address] Platelet Estimate Normal Normal Normal [facility] Comment on above: Performed By: #### H EPATIC, LIPASE, DIFF CBC, GLADYS, BMP #### [address] Platelet Morphology Normal Normal Normal [facility] Comment on above: Result Comment: PERF ORMED BY: [place] [address] PATHOLOGIST USED [employer] YARD WORKER GAURAV CONWAY M.D. Performed By: #### H EPATIC, LIPASE, DIFF CBC, GLADYS, BMP #### [address] Reactive Lymphocytes 6 % Normal 0-12 [facility] Comment on above: Performed By: #### H EPATIC, LIPASE, DIFF CBC, GLADYS, BMP #### [address] Eosinophils Auto (Bld) [#/Vo l]Ordered By: Jennyfer Winkler on 01-29-2024 Eosinophils (Bld) [#/Vol] N/A [facility] Eosinophils/100 WBC Auto (Bl d)Ordered By: Jennyfer Winkler on 01-29-2024 Eosinophils/100 WBC (Bld) N/A [facility] Eosinophils/100 leukocytes i n Blood by Manual countOrdered By: Jennyfer Winkler on 01-29-2024 Eosinophils/100 WBC (Bld) 5 % High 1-3 [facility] Comment on above: Performed By: #### H EPATIC, LIPASE, DIFF CBC, GLADYS, BMP #### [address] Erythrocyte distribution wid th [Ratio] by Automated countOrdered By: Jennyfer Winkler on 01-29-2024 Erythrocyte distribution width (RBC) [Ratio] 12.1 % Normal 12.0-14.8 [facility] Comment on above: Performed By: #### H EPATIC, LIPASE, DIFF CBC, GLADYS, BMP #### [address] Erythrocytes [#/volume] in B lood by Automated countOrdered By: Jennyfer Winkler on 01-29-2024 RBC (Bld) [#/Vol] 5.83 10*6/uL High 3.90-5.60 [facility] Comment on above: Performed By: #### H EPATIC, LIPASE, DIFF CBC, GLADYS, BMP #### [address] Giant platelets/100 leukocyt es [Ratio] in Blood by Manual countOrdered By: Jennyfer Winkler on 01-29-2024 Giant platelets/100 WBC Manual cnt (Bld) [Ratio] 1 /100{WBC} [facility] Glucose [Mass/volume] in Ser um or PlasmaOrdered By: Jennyfer Winkler on 01-29-2024 Glucose [Mass/Vol] 103 mg/dL High 70-100 [facility] Comment on above: ADA recommended refe rence rangeRandom Glucose Reference Range is dependent on time and content of last meal. Glucose of more than 200 mg/dL in a nonstressed, ambulatory subject supports the diagnosis of Diabetes Mellitus. Result Comment: [place] Glucose Reference Range is dependent on time and content of last meal. Glucose of more than 200 mg/dL in a nonstressed, ambulatory subject supports the diagnosis of Diabetes Mellitus. ADA recommended reference range Performed By: #### H EPATIC, LIPASE, DIFF CBC, GLADYS, BMP #### [facility] [address] Glucose [Mass/volume] in Uri ne by Test stripOrdered By: Jennyfer Winkler on 01-29-2024 Glucose Test strip (U) [Mass/Vol] Normal mg/dL Normal [facility] Hematocrit [Volume Fraction] of Blood by Automated countOrdered By: Jennyfer Winkler on 01-29-2024 Hematocrit (Bld) [Volume fraction] 54.1 % High 38.8-50.0 [facility] Comment on above: Performed By: #### H EPATIC, LIPASE, DIFF CBC, GLADYS, BMP #### [facility] [address] Hemoglobin Test strip Ql (U) Ordered By: Jennyfer Winkler on 01-29-2024 Hemoglobin Ql (U) Negative Negative [facility] Hemoglobin [Mass/volume] in BloodOrdered By: Jennyfer Winkler on 01-29-2024 Hemoglobin (Bld) [Mass/Vol] 18.9 g/dL High 13.0-17.0 [facility] Comment on above: Performed By: #### H EPATIC, LIPASE, DIFF CBC, GLADYS, BMP #### [facility] [address] Hepatic Panelon 01-29-2024 Albumin [Mass/Vol] 4.9 g/dL Normal 3.5-5.7 [facility] Comment on above: Performed By: #### H EPATIC, LIPASE, DIFF CBC, GLADYS, BMP #### [facility] [address] Bilirubin,Indirect 0.7 mg/dL Normal [facility] Comment on above: Performed By: #### H EPATIC, LIPASE, DIFF CBC, GLADYS, BMP #### [facility] [address] Bilirubin.indirect [Mass/Vol] 0.10 mg/dL Normal 0.03-0.18 [facility] Comment on above: Performed By: #### H EPATIC, LIPASE, DIFF CBC, GLADYS, BMP #### [facility] [address] Ketones [Presence] in Urine by Test stripOrdered By: Jennyfer Winkler on 01-29-2024 Ketones Ql (U) Negative Normal Negative [facility] Comment on above: Order Comment: Name Collection Type:: Murray Catheter Performed By: #### U A #### [address] Leukocyte esterase [Presence ] in Urine by Test stripOrdered By: Jennyfer Winkler on 01-29-2024 Leukocyte esterase Test strip Ql (U) Negative Normal Negative [facility] Comment on above: Order Comment: Name Collection Type:: Murray Catheter Performed By: #### U A #### [address] Leukocytes [#/volume] correc ernst for nucleated erythrocytes in Blood by Automated counOrdered By: Jennyfer Winkler on 01-29-2024 WBC corrected for nucl RBC Auto (Bld) [#/Vol] 6.8 10*3/uL 4.1-10.5 [facility] Leukocytes [#/volume] in Blo od by Automated countOrdered By: Jennyfer Winkler on 01-29-2024 WBC (Bld) [#/Vol] 6.8 10*3/uL Normal 4.1-10.5 [facility] Comment on above: Performed By: #### H EPATIC, LIPASE, DIFF CBC, GLADYS, BMP #### [facility] [address] Lipase [Enzymatic activity/v olume] in Serum or PlasmaOrdered By: Jennyfer Winkler on 01-29-2024 Lipase [Catalytic activity/Vol] 29.0 U/L Normal 11.0-82.0 [facility] Comment on above: Result Comment: PERF ORMED BY: [place] [address] PATHOLOGIST USED [employer] WORKER GAURAV CONWAY M.D. Performed By: #### H EPATIC, LIPASE, DIFF CBC, GLADYS, BMP #### [address] Lymphocytes Auto (Bld) [#/Vo l]Ordered By: Jennyfer Winkler on 01-29-2024 Lymphocytes (Bld) [#/Vol] N/A [facility] Lymphocytes/100 WBC Auto (Bl d)Ordered By: Jennyfer Winkler on 01-29-2024 Lymphocytes/100 WBC (Bld) N/A [facility] Lymphocytes/100 leukocytes i n Blood by Manual countOrdered By: Jennyfer Winkler on 01-29-2024 Lymphocytes/100 WBC (Bld) 28 % Normal 18-42 [facility] Comment on above: Performed By: #### H EPATIC, LIPASE, DIFF CBC, GLADYS, BMP #### [facility] [address] [place] [address] MCH [Entitic mass] by Automa ernst countOrdered By: Jennyfer Winkler on 01-29-2024 MCH (RBC) [Entitic mass] 32.4 pg Normal 27.5-35.2 [facility] Comment on above: Performed By: #### H EPATIC, LIPASE, DIFF CBC, GLADYS, BMP #### [facility] [address] [place] [address] MCHC Auto (RBC) [Mass/Vol]Or dered By: Jennyfer Winkler on 01-29-2024 MCHC (RBC) [Mass/Vol] 35.0 g/dL 32.5-35.6 [facility] MCV [Entitic volume] by Auto mated countOrdered By: Jennyfer Winkler on 01-29-2024 MCV (RBC) [Entitic vol] 92.7 fL Normal 83.5-101 [facility] Comment on above: Performed By: #### H EPATIC, LIPASE, DIFF CBC, GLADYS, BMP #### [facility] [address] Manual blood segmented neutr ophils/100 leukocytesOrdered By: Jennyfer Winkler on 01-29-2024 Segmented neutrophils/100 WBC (Bld) 58 % Normal 50-70 [facility] Comment on above: Performed By: #### H EPATIC, LIPASE, DIFF CBC, GLADYS, BMP #### [facility] [address] Monocyte distribution width [Entitic volume] in Blood by AutomatedOrdered By: Jennyfer Winkler on 01-29-2024 Monocyte distribution width Auto (Bld) [Entitic vol] 18.41 % 0.00-20.00 [facility] Monocytes Auto (Bld) [#/Vol] Ordered By: Jennyfer Winkler on 01-29-2024 Monocytes (Bld) [#/Vol] N/A [facility] Monocytes/100 WBC Auto (Bld) Ordered By: Jennyfer Winkler on 01-29-2024 Monocytes/100 WBC (Bld) N/A [facility] Monocytes/100 leukocytes in Blood by Manual countOrdered By: Jennyfer Winkler on 01-29-2024 Monocytes/100 WBC (Bld) 4 % Normal 2-11 [facility] Comment on above: Performed By: #### H EPATIC, LIPASE, DIFF CBC, GLADYS, BMP #### [facility] [address] Neutrophils Auto (Bld) [#/Vo l]Ordered By: Jennyfer Winkler on 01-29-2024 Neutrophils (Bld) [#/Vol] N/A [facility] Neutrophils/100 WBC Auto (Bl d)Ordered By: Jennyfer Winkler on 01-29-2024 Neutrophils/100 WBC (Bld) N/A [facility] Nitrite Test strip Ql (U)Ord ered By: Jennyfer Winkler on 01-29-2024 Nitrite Ql (U) Negative Negative [facility] No Panel InformationOrdered By: Jennyfer Winkler on 01-29-2024 Estimated GFR (CKD-EPI) > 60.0 mL/Min [facility] Creatinine Clearance (Chem 83.32 [facility] Nucleated erythrocytes [Pres ence] in Blood by Automated countOrdered By: Jennyfer Winkler on 01-29-2024 Nucleated RBC Auto Ql (Bld) N/A [facility] Platelet adequacy [Presence] in Blood by Light microscopyOrdered By: Jennyfer Winkler on 01-29-2024 Platelets LM Ql (Bld) Normal Normal [facility] Platelet mean volume [Entiti c volume] in Blood by Automated countOrdered By: Jennyfer Winkler on 01-29-2024 Platelet mean volume (Bld) [Entitic vol] 8.1 fL Normal 6.6-10.1 [facility] Comment on above: Performed By: #### H EPATIC, LIPASE, DIFF CBC, GLADYS, BMP #### [facility] [address] Platelet morphology finding [Identifier] in BloodOrdered By: Jennyfer Winkler on 01-29-2024 Platelet morphology finding Nom (Bld) Normal Normal [facility] Platelets [#/volume] in Bloo d by Automated countOrdered By: Jennyfer Winkler on 01-29-2024 Platelets (Bld) [#/Vol] 245 10*3/uL Normal 150-450 [facility] Comment on above: Performed By: #### H EPATIC, LIPASE, DIFF CBC, GLADYS, BMP #### [facility] [address] [place] [address] [place] Potassium [Moles/volume] in Serum or PlasmaOrdered By: Jennyfer Winkler on 01-29-2024 Potassium [Moles/Vol] 3.9 mmol/L Normal 3.5-5.1 [facility] Comment on above: Performed By: #### H EPATIC, LIPASE, DIFF CBC, GLADYS, BMP #### [facility] [address] [place] [address] [place] Protein Test strip (U) [Mass /Vol]Ordered By: Jennyfer Winkler on 01-29-2024 Protein (U) [Mass/Vol] Negative Negative [facility] Protein [Mass/volume] in Ser um or PlasmaOrdered By: Jennyfer Winkler on 01-29-2024 Protein [Mass/Vol] 8.0 g/dL Normal 6.4-8.9 [facility] Comment on above: Performed By: #### H EPATIC, LIPASE, DIFF CBC, GLADYS, BMP #### [address] RBC morphologyOrdered By: Ella Winkler on 01-29-2024 RBC morphology finding Nom (Bld) Normal Normal Normal [facility] Comment on above: Performed By: #### H EPATIC, LIPASE, DIFF CBC, GLADYS, BMP #### [address] Serum globulin measurement b y calculation (mass/volume)Ordered By: Jennyfer Winkler on 01-29-2024 Globulin (S) [Mass/Vol] 3.1 g/dL Normal [facility] Comment on above: Performed By: #### H EPATIC, LIPASE, DIFF CBC, GLADYS, BMP #### [address] Serum or plasma albumin/glob ulin mass ratioOrdered By: Jennyfer Winkler on 01-29-2024 Albumin/Globulin [Mass ratio] 1.6 {ratio} Normal [facility] Comment on above: Performed By: #### H EPATIC, LIPASE, DIFF CBC, GLADYS, BMP #### [address] Serum or plasma anion gap de terminationOrdered By: Jennyfer Winkler on 01-29-2024 Anion gap [Moles/Vol] 10.5 mmol/L Normal 6.0-15.0 [facility] Comment on above: Performed By: #### H EPATIC, LIPASE, DIFF CBC, GLADYS, BMP #### [address] Serum or plasma non-glucuron idated bilirubin measurement (mass/volume)Ordered By: Jennyfer Winkler on 01-29-2024 Bilirubin.indirect [Mass/Vol] 0.7 mg/dL [facility] Sodium [Moles/volume] in Ser um or PlasmaOrdered By: Jennyfer Winkler on 01-29-2024 Sodium [Moles/Vol] 131 mmol/L Low 136-145 [facility] Comment on above: Performed By: #### H EPATIC, LIPASE, DIFF CBC, GLADYS, BMP #### [facility] [address] Specific gravity Test strip (U) [Rel density]Ordered By: Jennyfer Winkler on 01-29-2024 Specific gravity (U) [Rel density] 1.003 1.001-1.030 [facility] Urea nitrogen [Mass/volume] in Serum or PlasmaOrdered By: Jennyfer Winkler on 01-29-2024 Urea nitrogen [Mass/Vol] 6 mg/dL Low 7-25 [facility] Comment on above: Performed By: #### H EPATIC, LIPASE, DIFF CBC, GLADYS, BMP #### [facility] [address] Urinalysison 01-29-2024 Bilirubin,Urine Negative Normal Negative [facility] Comment on above: Order Comment: Name Collection Type:: Murray Catheter Performed By: #### U A #### [address] Glucose Ql (U) Normal Normal Normal [facility] Comment on above: Order Comment: Name Collection Type:: Murray Catheter Performed By: #### U A #### [address] Nitrite,Urine Negative Normal Negative [facility] Comment on above: Order Comment: Name Collection Type:: Murray Catheter Performed By: #### U A #### [address] Occult Blood,Urine Negative Normal Negative The [facility] Comment on above: Order Comment: Name Collection Type:: Murray Catheter Result Comment: PERF ORMED BY: [place] [address] PATHOLOGIST USED [employer]ER GAURAV CONWAY M.D. Performed By: #### U A #### [address] Protein,Urine Negative Normal Negative The [facility] Comment on above: Order Comment: Name Collection Type:: Murray Catheter Performed By: #### U A #### [address] [place] [address] [place] Specificy Baker,Urine 1.003 Normal 1.001-1.030 [facility] Comment on above: Order Comment: Name Collection Type:: Umrray Catheter Performed By: #### U A #### [facility] [address] Urobilinogen,Urine Normal Normal Normal The [facility] Comment on above: Order Comment: Name Collection Type:: Murray Catheter Performed By: #### U A #### [address] Urine appearanceOrdered By: Jennyfer Winkler on 01-29-2024 Appearance (U) Clear Normal Clear [facility] Comment on above: Order Comment: Name Collection Type:: Murray Catheter Performed By: #### U A #### [address] Urobilinogen Test strip (U) [Mass/Vol]Ordered By: Jennyfer Winkler on 01-29-2024 Urobilinogen (U) [Mass/Vol] Normal mg/dL Normal [facility] Variant lymphocytes/100 WBC Manual cnt (Bld)Ordered By: Jennyfer Winkler on 01-29-2024 Variant lymphocytes/100 WBC (Bld) 6 % 0-12 [facility] pH of Urine by Test stripOrd ered By: Jennyfer Winkler on 01-29-2024 pH (U) 7.5 [pH] Normal 5.0-9.0 [facility] Comment on above: Order Comment: Name Collection Type:: Murray Catheter Performed By: #### U A #### [address] CBC AUTO DIFFon 03-26-2022 BASO # 0.1 103/ul Normal 0.0-0.1 [facility] Comment on above: Performed By: #### C BC #### [facility] [address] [address] [address] Pravin Travis Basophils/100 WBC (Bld) 0.7 % Normal 0.2-2.0 [facility] Comment on above: Performed By: #### C BC #### [facility] [address] [place] [address] Dr. Pravin Travis EO # 0.6 103/ul Normal 0.0-0.7 [facility] Comment on above: Performed By: #### C BC #### [facility] [address] [place] [address] Dr. Pravin Travis Eosinophils/100 WBC (Bld) 7.4 % Critically high 0.9-7.0 [facility] Comment on above: Performed By: #### C BC #### [facility] [address] [place] [address] Dr. Pravin Travis Erythrocyte distribution width (RBC) [Ratio] 12.3 % Normal 11.0-15.0 [facility] Comment on above: Performed By: #### C BC #### [facility] [address] [place] [address] Dr. Pravin Travis Hematocrit (Bld) [Volume fraction] 47.2 % Normal 42.0-54.0 [facility] Comment on above: Performed By: #### C BC #### [facility] [address] [place] [address] Dr. Pravin Travis Hemoglobin (Bld) [Mass/Vol] 16.2 g/dL Normal 14.0-18.0 [facility] Comment on above: Performed By: #### C BC #### [facility] [address] [place] [address] Dr. Pravin Travis IG # 0.03 10e3/ul Normal 0.00-0.03 [facility] Comment on above: Performed By: #### C BC #### [facility] [address] [place] [address] Dr. Pravin Travis IG % 0.4 % Normal 0.0-0.5 [facility] Comment on above: Performed By: #### C BC #### [facility] [address] [place] [address] Dr. Pravin Travis LYMPH # 2.1 103/ul Normal 1.2-3.8 [facility] Comment on above: Performed By: #### C BC #### [facility] [address] [place] [address] Dr. Pravin Travis Lymphocytes/100 WBC (Bld) 24.3 % Normal 20.5-60.0 [facility] Comment on above: Performed By: #### C BC #### [facility] [address] [place] [address] Dr. Pravin Travis MANUAL DIFF REQ NO Normal [facility] Comment on above: Performed By: #### C BC #### [facility] [address] [place] [address] Dr. Pravin Travis MCH (RBC) [Entitic mass] 32.6 pg Normal 25.9-34.0 [facility] Comment on above: Performed By: #### C BC #### [facility] [address] [place] [address] Dr. Pravin Travis MCHC (RBC) [Mass/Vol] 34.3 g/dL Normal 29.9-35.2 [facility] Comment on above: Performed By: #### C BC #### [facility] [address] [place] [address] Dr. Pravin Travis MCV (RBC) [Entitic vol] 95.0 fL Critically high 80.0-94 .0 [facility] Comment on above: Performed By: #### C BC #### [facility] [address] [place] [address] Dr. Pravin Travis MONO # 0.8 103/ul Normal 0.3-0.8 [facility] Comment on above: Performed By: #### C BC #### [facility] [address] [place] [address] Dr. Pravin Travis Monocytes/100 WBC (Bld) 9.7 % Normal 1.7-12.0 [facility] Comment on above: Performed By: #### C BC #### [facility] [address] [place] [address] Dr. Pravin Travis NEUT # 4.9 103/ul Normal 1.4-6.5 [facility] Comment on above: Performed By: #### C BC #### [facility] [address] [place] [address] Dr. Pravin Travis Neutrophils/100 WBC (Bld) 57.5 % Normal 43.0-75.0 [facility] Comment on above: Performed By: #### C BC #### [facility] [address] [place] [address] Dr. Pravin Travis Platelet mean volume (Bld) [Entitic vol] 10.4 fL Normal 9.5-13.5 [facility] Comment on above: Performed By: #### C BC #### [facility] [address] [place] [address] Dr. Pravin Travis PLT 215 103/ul Normal 150-450 [facility] Comment on above: Performed By: #### C BC #### [facility] [address] [place] [address] Dr. Pravin Travis RBC 4.97 106/ul Normal 4.70-6.10 [facility] Comment on above: Performed By: #### C BC #### [facility] [address] [place] [address] Dr. Pravin Travis WBC 8.6 103/ul Normal 4.0-11.0 [facility] Comment on above: Performed By: #### C BC #### [facility] [address] [place] [address] ABD/PELV W CONon [...] ALANA MORROW Date: 2022-03-26 01:45 Normal [facility] URINE PROFILEon 2 Bilirubin Ql (U) Negative Normal NEGATIVE The [facility] Comment on above: Performed By: #### E RUR #### [facility] [address] [place] [address] Dr. Pravin Travis Clarity (U) SL CLOUDY Abnormal CLEAR [facility] Comment on above: Performed By: #### E RUR #### [facility] [address] [address] [address] Pravin Travis Color (U) LT. YELLOW Normal YELLOW [facility] Comment on above: Performed By: #### E RUR #### [facility] [address] [place] [address] Dr. Pravin TURK A micrscopic examination will be performed if indicated. Normal [facility] Comment on above: Performed By: #### E RUR #### [facility] [address] [place] [address] Dr. Pravin Travis Glucose Ql (U) Negative Normal NEGATIVE The [facility] Comment on above: Performed By: #### E RUR #### [facility] [address] [place] [address] Dr. Pravin Travis Hemoglobin Ql (U) Negative Normal NEGATIVE The [facility] Comment on above: Performed By: #### E RUR #### [facility] [address] [place] [address] Dr. Pravin Travis Ketones Ql (U) Negative Normal NEGATIVE The [facility] Comment on above: Performed By: #### E RUR #### [facility] [address] [place] [address] Dr. Pravin Travis LEUKOCYTES Negative Normal NEGATIVE [facility] Comment on above: Performed By: #### E RUR #### [facility] [address] [place] [address] Dr. Pravin Travis Nitrite Ql (U) Negative Normal NEGATIVE The [facility] Comment on above: Performed By: #### E RUR #### [facility] [address] [address] [address] Pravin Travis pH (U) 7.5 [pH] Normal 5-9 [facility] Comment on above: Performed By: #### E RUR #### [facility] [address] [place] [address] Dr. Pravin Travis SPEC GRAVITY 1.015 Normal 1.005-<=1.02 5 [facility] Comment on above: Performed By: #### E RUR #### [facility] [address] [place] [address] Dr. Pravin Travis UA PROTEIN Negative Normal NEGATIVE/ TRACE [facility] Comment on above: Performed By: #### E RUR #### [facility] [address] [place] [address] Dr. Pravin Travis UR MICRO IND NOT INDICATED Normal [facility] Comment on above: Performed By: #### E RUR #### [facility] [address] [place] [address] Dr. Pravin Travis Urobilinogen Qn (U) 0.2 {Katie'U}/dL Normal 0.2 - 1. 0 [facility] Comment on above: Performed By: #### E RUR #### [facility] [address] [place] [address] Dr. Pravin Travis PROF 14(COMP METB)on 022 Albumin [Mass/Vol] 4.3 g/dL Normal 3.4-5.0 [facility] Comment on above: Performed By: #### C MP #### [facility] [address] [place] [address] Dr. Pravin Travis Albumin/Globulin [Mass ratio] 1.3 {ratio} Normal [facility] Comment on above: Performed By: #### C MP #### [facility] [address] [place] [address] Dr. Pravin Travis ALP [Catalytic activity/Vol] 92 U/L Normal 46-116 [facility] Comment on above: Performed By: #### C MP #### [facility] [address] [address] [address] Pravin Travis ALT [Catalytic activity/Vol] 31 U/L Normal 16-63 [facility] Comment on above: Performed By: #### C MP #### [facility] [address] [address] [address] Pravin Travis Anion gap [Moles/Vol] 10.9 mmol/L Normal Th [facility] Comment on above: Performed By: #### C MP #### [facility] [address] [address] [address] Pravin Travis AST [Catalytic activity/Vol] 31 U/L Normal 15-37 [facility] Comment on above: Performed By: #### C MP #### [facility] [address] [place] [address] Dr. Pravin Travis Bilirubin [Mass/Vol] 0.5 mg/dL Normal 0.2-1.0 [facility] Comment on above: Performed By: #### C MP #### [facility] [address] [address] [address] Pravin Travis Calcium [Mass/Vol] 9.3 mg/dL Normal 8.5-10.1 [facility] Comment on above: Performed By: #### C MP #### [facility] [address] [place] [address] Dr. Pravin Travis Chloride [Moles/Vol] 103 mmol/L Normal 98-107 [facility] Comment on above: Performed By: #### C MP #### [facility] [address] [address] [address] Pravin Travis CO2 [Moles/Vol] 29.8 mmol/L Normal 21.0-32.0 The [facility] Comment on above: Performed By: #### C MP #### [facility] [address] [address] [address] Pravin Travis Creatinine [Mass/Vol] 1.22 mg/dL Normal 0.70-1.30 [facility] Comment on above: Performed By: #### C MP #### [facility] [address] [address] [address] Pravin Travis EGFR-AF GABONESE >60 Normal >=60 [facility] Comment on above: Performed By: #### C MP #### [facility] [address] [address] [address] Pravin Travis EGFR-NON AF GABONESE >60 Normal >=60 [facility] Comment on above: Performed By: #### C MP #### [facility] [address] [address] [address] Pravin Travis Globulin (S) [Mass/Vol] 3.4 g/dL Normal T [facility] Comment on above: Performed By: #### C MP #### [facility] [address] [place] [address] Dr. Pravin Travis Glucose [Mass/Vol] 91 mg/dL Normal 74-106 [facility] Comment on above: Performed By: #### C MP #### [facility] [address] [place] [address] Dr. Pravin Travis Potassium [Moles/Vol] 3.7 mmol/L Normal 3.5-5.1 [facility] Comment on above: Performed By: #### C MP #### [facility] [address] [place] [address] Dr. Pravin Travis Protein [Mass/Vol] 7.7 g/dL Normal 6.4-8.2 [facility] Comment on above: Performed By: #### C MP #### [facility] [address] [place] [address] Dr. Parvin Travis Sodium [Moles/Vol] 140 mmol/L Normal 136-145 [facility] Comment on above: Performed By: #### C MP #### [facility] [address] [address] [address] Pravin Travis Urea nitrogen [Mass/Vol] 11.0 mg/dL Normal 7.0-18.0 [facility] Comment on above: Performed By: #### C MP #### [facility] [address] [address] [address] Pravin Travis Urea nitrogen/Creatinine [Mass ratio] 9.0 mg/mg Normal [facility] Comment on above: Performed By: #### C MP #### [facility] [address] [place] [address] Dr. Pravin Travis COVID Quick Testingon 2021 Result Positive [employer] Other COVID Quick Testingon 2020 Result Negative [employer] Other Quick Fluon 08-11-2021 FLUAV Ab CF (S) [Titer] Negative N [employer] Other FLUBV Ab CF (S) [Titer] Negative N [employer] Other Vital Signs Date Time Vital Sign Value Performing Clinician Facility 03-03-2024 14:00-0400 Diastolic blood pressure 95 mm[Hg] DO [employer] Work Phone: [facility] 03-03-2024 14:00-0400 Heart rate 79 /min DO [employer] Work Phone: [facility] 03-03-2024 14:00-0400 Respiratory rate 18 /min DO [employer] Work Phone: [facility] 03-03-2024 14:00-0400 SaO2% (BldA) [Mass fraction] 95 % DO [employer] Work Phone: [facility] 03-03-2024 14:00-0400 Systolic blood pressure 147 mm[Hg] DO [employer] Work Phone: [facility] 03-03-2024 11:20-0400 Body temperature 98.2 [degF] DO [employer] Work Phone: [facility] 03-03-2024 11:18-0400 Body height 172.72 cm DO [employer] Work Phone: [facility] 03-03-2024 11:18-0400 Body weight 80.65 kg DO [employer] Furlong Work Phone: [facility] 02-02-2024 11:29-0400 Body temperature 98.6 [degF] Didi Orzech [facility] 02-02-2024 11:29-0400 Diastolic blood pressure 81 mm[Hg] Didi Orzech [facility] 02-02-2024 11:29-0400 Heart rate 77 /min Didi Orzech [facility] 02-02-2024 11:29-0400 Respiratory rate 16 /min Didi Orzech [facility] 02-02-2024 11:29-0400 Systolic blood pressure 136 mm[Hg] Didi Orzech [facility] 01-30-2024 01:11-0400 Heart rate 159 /min DO [employer] Furlong Work Phone: [facility] 01-30-2024 00:30-0400 Respiratory rate 22 /min DO [employer] Work Phone: [facility] 01-30-2024 00:30-0400 SaO2% (BldA) [Mass fraction] 97 % DO [employer] Work Phone: [facility] 01-29-2024 23:38-0400 Diastolic blood pressure 95 mm[Hg] DO [employer] Work Phone: [facility] 01-29-2024 23:38-0400 Systolic blood pressure 136 mm[Hg] DO [employer] Work Phone: [facility] 01-29-2024 22:45-0400 Body height 172.72 cm DO [employer] Work Phone: [facility] 01-29-2024 22:45-0400 Body weight 86.2 kg DO [employer] Work Phone: [facility] 01-29-2024 22:44-0400 Body temperature 98.3 [degF] DO [employer] Work Phone: [facility] 09-01-2021 13:30-0500 Body height 172.72 cm Tawnya Andre Other [employer] Other 09-01-2021 13:30-0500 Body mass index (BMI) [Ratio] 31.93 kg/m2 Tawnya Andre Other [employer] Other 09-01-2021 13:30-0500 Body temperature 97.4 [degF] Tawnya Andre Other [employer] Other 09-01-2021 13:30-0500 Body weight 95.26 kg Tawnya Andre Other [employer] Other 09-01-2021 13:30-0500 Respiratory rate 18 /min Tawnya Andre Other [employer] Other 09-01-2021 13:30-0500 SaO2% (BldA) [Mass fraction] 98 % Tawnya Andre Other [employer] Other 08-11-2021 12:00-0500 Body height 172.72 cm Mary King Other [employer] Other 08-11-2021 12:00-0500 Body mass index (BMI) [Ratio] 31.93 kg/m2 Mary King Other [employer] Other 08-11-2021 12:00-0500 Body temperature 96.9 [degF] Mary King Other [employer] Other 08-11-2021 12:00-0500 Body weight 95.26 kg Mary King Other [employer] Other 08-11-2021 12:00-0500 Respiratory rate 18 /min Mary King Other [employer] Other 08-11-2021 12:00-0500 SaO2% (BldA) [Mass fraction] 96 % Mary King Other [employer] Other Encounters Encounter Date Encounter Type Care Provider Facility Start: 04-03-2024 End: 04-03-2024 ambulatory Didi X Orzech Facility:[facility] Start: 04-03-2024 End: 04-03-2024 Patient encounter procedure Didi X Orzech [facility] [place] Start: 03-03-2024 End: 03-03-2024 Emergency department patient visit DO Cisco Blanc Work Phone: [facility] Work Phone: Start: 02-17-2024 End: 02-18-2024 Evaluation and management of inpatient [facility] Start: 02-02-2024 End: 02-02-2024 ambulatory Didi X Orzech Facility:[facility] Start: 02-02-2024 End: 02-02-2024 Patient encounter procedure Didi X Orzech [facility] [place] Start: 01-30-2024 ambulatory Didi Orzech Facility: [facility] [place] Start: 01-29-2024 End: 01-30-2024 Emergency department patient visit DO Cisco Blanc Work Phone: [facility] Work Phone: Start: 12-09-2023 End: 12-09-2023 ambulatory [facility] Start: 03-26-2022 End: 03-26-[address] CISCO BLANC Facility: Start: 09-01-2021 End: 09-01-2021 ambulatory Tawnya Andre Other [employer] Other Start: 09-01-2021 Office outpatient visit 15 minutes Tawnya Andre [facility] Start: 08-11-2021 End: 08-11-2021 ambulatory Mary King Other [employer] Other Start: 08-11-2021 Office outpatient visit 15 minutes Mary King [facility] Start: 08-30-2016 End: 08-31-2016 Ambulatory GRADY WESTWO Facility:[facility] Procedures Date Procedure Procedure Detail Performing Clinician Start: 03-03-2024 Diagnostic radiograp hy of abdomen DO Cisco Blanc Work Phone: Start: 01-29-2024 CT of abdomen and pe lvis without contrast DO Cisco Blanc Work Phone: Appendectomy Didi Orzech Colonoscopy Didi Orzech Plan of Treatment Date Care Activity Detail Author Start: 01-29-2024 CT Abdomen and Pelvi s WO contrast [facility] Start: 01-29-2024 CT of abdomen and pelvis without contrast CT abdomen pelvis wo con [facility] Patient Education [facility] Work Phone: Patient referral [facility] Work Phone: Immunizations Immunization Date Immunization Notes Care Provider Dorene [facility] 06-20-2021 influenza virus vaccine, unspecified formulation Didi Orzech [facility] 06-20-2021 SARS-CoV-2 (COVID-19 ) mRNA BNT-162b2 vax Didi Orzech [facility] 12-08-2020 SARS-CoV-2 (COVID-19 ) mRNA BNT-162b2 vax Didi Orzech [facility] 11-18-2020 SARS-CoV-2 (COVID-19 ) mRNA BNT-162h1 vax Didi Orzech [facility] 04-06-2020 influenza virus vaccine, unspecified formulation Didi Orzech [facility] 06-07-2019 influenza virus vaccine, unspecified formulation Didi Orzech [facility] 10-27-2013 tetanus toxoid, redu brock diphtheria toxoid, and acellular pertussis vaccine, adsorbed Didi Orzech [facility] Payers Date Payer Category Payer Self-pay [id number] 2022 Medicaid 2022 Unknown [id number] 2.1 [id number] 2021 Unknown [id number] 2021 Unknown [id number] 2021 Medicaid [id number] 2019 Unknown [id number] 1968 Unknown [id number] 2.16.84 [id number] 1968 Unknown [id number] 2.16.8 [id number] 1968 Unknown [id number] 2.16.8 [id number] 1968 Unknown [id number] 2.16.8 [id number] 1968 Unknown [id number] 2.16.8 [id number] 1968 Unknown [id number] 2.16.8 [id number] 1959 Private Health Insurance [id number] Medicaid [id number] Unknown [id number] 2.16.8 [id number] Unknown [id number] 2.16.8 [id number] Social History Date Type Detail Facility Unknown if ever smoked [facility] Other Sex Assigned At [facility] Start: 01-29-2024 End: 03-03-2024 Tobacco smoking status NHIS Smoker (finding) [facility] Start: 1970 Sex Assigned At Male [facility] Start: 02-02-2024 Tobacco smoking status Ex-smoker (fi nding) [facility] Tobacco smoking status Never [facility] Functional Status Date Assessment Result Facility 02-02-2024 Functional Status N/A [facility] Evaluation note 09-01-2021 Note Date & Type [...] Patient care instructions given in writting by [facility] Care At Home document. [employer] Other Evaluation note 08-11-2021 Note Date & [...] Patient care instructions given in writting by [facility] Care At Home document. [employer] Other Evaluation + Plan note Note Date & Type Note Facility Evaluation + Plan note Future Appointments Appointment Date:04/03/2024 01:00:00 PM Scheduled Provider:JOSEPH Allen APRN, Didi Martin Location:[facility] Appointment Type:URO Office Visit [facility] Evaluation note Note Date & Type Note Facility Evaluation note No assessment information availa ble [facility] Work Phone: History general Narrative - Reported Note Date & Type Note Facility History general Narrative - Reported Type Medical History insomnia Medical History anxiety Medical History HTN Surgical History appendix removed Surgical History compartment syndrome left hand 2016 Hospitalization History see surgical hx [employer] Other Hospital course Narrative Note Date & Type Note Facility Hospital course Narrative No data available for this section [facility] Hospital Discharge instructions Note Date & Type Note Facility Hospital Discharge instructions Additional Instructions Wear leg bag with Murray catheter Follow-up with urology Return if symptoms are [facility] [employer] Work Phone: Hospital Discharge instructions Note Date & Type Note Facility Hospital Discharge instructions No data available for this section [facility] [place] [employer] Progress note Note Date & Type Note Facility Progress note No data available for this section [facility] Summary Purpose Family History No Family History Records FoundNo Family History Records FoundNo Family History Records Found No data available for this section No Family History Records FoundNo Family History Records Found No data available for this section No Family History Records Found Advance Directives No [...] section and content) DATE CREATED AUTHOR 02/14/2018 [facility] DATE CREATED AUTHOR AUTHOR'S ORGANIZ ATION 03/29/2022 [facility] DATE CREATED AUTHOR AUTHOR'S ORGANIZ ATION 12/10/2023 [facility] DATE CREATED AUTHOR AUTHOR'S ORGANIZ ATION 02/24/2024 [facility] DATE CREATED AUTHOR AUTHOR'S ORGANIZ ATION 03/19/2024 [facility] DATE CREATED AUTHOR AUTHOR'S ORGANIZ ATION 04/05/2024 [facility] REASON FOR VISIT (unrecogniz ed section [...] BE BASED ON THE PRIMARY CLINICAL RECORDS. [facility] [employer] [facility]. provides no warranty or guarantee of the accuracy or completeness of information in this document.
[2024-05-04 11:37] VITALS: PULSE 92
--- NOTE | 2024-05-04 11:51 | ECG_ITS ---
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
[2024-05-04] MEDS: LORAZEPAM 1 MG TABLET PO (11:57)
[2024-05-04 12:07] VITALS: BP 148/98; PULSE 91; O2SAT 99
== END 2024-05-04 12:08 | disposition home or self-care (01) ==
PROVIDERS: Emergency Provider Emergency Medicine; PCP Family Medicine
DX: F41.9 Anxiety disorder, unspecified (principal); K59.00 Constipation, unspecified
CPT/HCPCS: 93005; 99283

== ENCOUNTER 2024-05-06 14:37 | Emergency (ER) | payer OTHER, SELFPAY ==
[2024-05-06] VITALS (9 sets, daily range): BP systolic 160–164; BP diastolic 90–96; PULSE 80–96; TEMP 36.9; O2SAT 97; BMI 27.2
--- OUTSIDE RECORDS SUMMARY | 2024-05-06 14:43 | XMS_ITS | CCD ---
Author Organization [facility] Care Team Providers Care Outpatient Therapist Name Role Phone OSINOWO, OSIYEMI Unavailable Unavailable [...] Emergency Provider CISCO BLANC Primary Care Physician [phone] JENNYFER AUGUSTIN Admitting Unavailable JENNYFER AUGUSTIN Attending Unavailable CISCO BLANC Primary Care Unavailable JENNYFER AUGUSTIN Attending Unavailable JENNYFER AUGUSTIN Referring Unavailable CISCO BLANC Primary Care Unavailable JAME De Emergency Provider [phone] Cisco Blanc Primary Care Unavailable James De Attending Unavailable James De Admitting Unavailable Jennyfer Winkler Attending Unavailable Jennyfer Winkler Admitting Unavailable Cisco Blanc Primary Care Unavailable Didi Allen Attending Unavailable Didi Allen Attending Unavailable Allergies Allergy Classification Reported Allergen(s) Allergy Type Date of Onset Reaction(s) Facility (1 source) No Known Medication Allergies; Translations: [No Known Medication Allergies] Propensity to adverse reactions (disorder) [facility] Repository Medications Current Medications Medication Drug Class(es) [...] Basophils/100 WBC (Bld) 0.4 % Normal . [facility] Comment on above: Performed By: #### B MP, SCAN CBC #### [facility] [address] [place] [address] Automated basophil countOrde red By: James De on 03-03-2024 Basophils (Bld) [#/Vol] 0.0 10*3/uL Normal 0.0-0.2 [facility] Comment on above: Performed By: #### B MP, SCAN CBC #### [facility] [address] [place] [address] Automated blood monocyte cou ntOrdered By: James De on 03-03-2024 Monocytes (Bld) [#/Vol] 0.8 10*3/uL Normal 0.0-0.8 [facility] Comment on above: Performed By: #### B MP, SCAN CBC #### [facility] [address] [place] [address] Automated eosinophil %Ordere d By: James De on 03-03-2024 Eosinophils/100 WBC (Bld) 2.6 % Normal . [facility] Comment on above: Performed By: #### B MP, SCAN CBC #### [facility] [address] [place] [address] Automated eosinophil countOr dered By: James De on 03-03-2024 Eosinophils (Bld) [#/Vol] 0.2 10*3/uL Normal 0.0-0.45 [facility] Comment on above: Performed By: #### B MP, SCAN CBC #### [facility] [address] [place] [address] Automated monocyte %Ordered By: James De on 03-03-2024 Monocytes/100 WBC (Bld) 8.7 % Normal . [facility] Comment on above: Performed By: #### B MP, SCAN CBC #### [facility] [address] [place] [address] Automated neutrophil %Ordere d By: James De on 03-03-2024 Neutrophils/100 WBC (Bld) 74.9 % Normal . [facility] Comment on above: Performed By: #### B MP, SCAN CBC #### [facility] [address] Bacteria [Presence] in Urine by AutomatedOrdered By: Nish Davidson on 03-03-2024 Bacteria Auto Ql (U) None seen [HPF] None Seen [facility] Basic Metabolic Panelon 02-19 Creatinine Clr Calc Pharmacy 68.43 Normal [facility] Comment on above: Result Comment: PERF ORMED BY: [place] [address] PATHOLOGIST [employer] GAURAV CONWAY M.D. Performed By: #### B MP, SCAN CBC #### [facility] [address] [place] [address] [place] GFR/1.73 sq M.predicted MDRD (S/P/Bld) [Vol rate/Area] mL/min/{1.73_m2} Normal [facility] Comment on above: Performed By: #### B MP, SCAN CBC #### [facility] [address] [place] [address] Bilirubin Test strip Ql (U)O rdered By: Nish Davidson on 03-03-2024 Bilirubin Ql (U) Negative Negative [facility] Calcium [Mass/volume] in Ser um or PlasmaOrdered By: James De on 03-03-2024 Calcium [Mass/Vol] 9.5 mg/dL Normal 8.6-10.3 [facility] Comment on above: Performed By: #### B MP, SCAN CBC #### [facility] [address] [place] [address] [place] Carbon dioxide, total [Moles /volume] in Serum or PlasmaOrdered By: James De on 03-03-2024 CO2 [Moles/Vol] 25.3 mmol/L Normal 21.0-31.0 [facility] Comment on above: Performed By: #### B MP, SCAN CBC #### [facility] [address] [place] [address] [place] Chloride [Moles/volume] in S dereje or PlasmaOrdered By: James De on 03-03-2024 Chloride [Moles/Vol] 102 mmol/L Normal 98-107 [facility] Comment on above: Performed By: #### B MP, SCAN CBC #### [facility] [address] [place] [address] [facility] Color of Urine by AutoOrdere d By: Nish Davidson on 03-03-2024 Color (U) Yellow Normal Yellow [facility] Comment on above: Order Comment: Name Collection Type:: Voided Performed By: #### A DDONUAPLUS ####[address] [address] [facility] Creatinine [Mass/volume] in Serum or PlasmaOrdered By: James De on 03-03-2024 Creatinine [Mass/Vol] 1.18 mg/dL Normal 0.70-1.30 [facility] Comment on above: Performed By: #### B MP, SCAN CBC #### [facility] [address] [place] [address] [place] Dipstick and Microscopicon 0 03-03-2024 Bacteria,Urine None Seen Normal None Seen [facility] Comment on above: Order Comment: Name Collection Type:: Voided Performed By: #### A DDONUAPLUS ####[address] [address] [facility] Bilirubin,Urine Negative Normal Negative [facility] Comment on above: Order Comment: Name Collection Type:: Voided Performed By: #### A DDONUAPLUS ####[address] [address] [facility] Glucose Ql (U) Normal Normal Normal [facility] Comment on above: Order Comment: Name Collection Type:: Voided Performed By: #### A DDONUAPLUS ####[address] [address] [place] Hyaline Casts,Urine 0-8 Normal 0-8 [facility] Comment on above: Order Comment: Name Collection Type:: Voided Performed By: #### A DDONUAPLUS ####[address] [address] [place] Mucus,Urine 1+ Critically abnormal [facility] Comment on above: Order Comment: Name Collection Type:: Voided Result Comment: PERF ORMED BY: [facility] [address] [place] [id number] PATHOLOGIST [employer] GAURAV CONWAY M.D. Performed By: #### A DDONUAPLUS ####[address] [address] [facility] Nitrite,Urine Negative Normal Negative [facility] Comment on above: Order Comment: Name Collection Type:: Voided Performed By: #### A DDONUAPLUS ####[address] [address] [facility] Occult Blood,Urine Negative Normal Negative [facility] Comment on above: Order Comment: Name Collection Type:: Voided Result Comment: PERF ORMED BY: [facility] [address] [address] PATHOLOGIST [employer] GAURAV CONWAY M.D. Performed By: #### A DDONUAPLUS ####[address] [address] [facility] Protein,Urine Trace High Negative [facility] Comment on above: Order Comment: Name Collection Type:: Voided Performed By: #### A DDONUAPLUS ####[address] [address] [facility] RBC,Urine None Seen Normal 0-4 [facility] Comment on above: Order Comment: Name Collection Type:: Voided Performed By: #### A DDONUAPLUS ####[address] [address] [facility] Specificy Proctor,Urine 1.015 Normal 1.001-1.030 [facility] Comment on above: Order Comment: Name Collection Type:: Voided Performed By: #### A DDONUAPLUS ####[address] [address] [facility] Squamous Epithelial Cell,Urine 1-2 Normal 0-2 [facility] Comment on above: Order Comment: Name Collection Type:: Voided Performed By: #### A DDONUAPLUS ####[address] [address] [facility] Urobilinogen,Urine Normal Normal Normal [facility] Comment on above: Order Comment: Name Collection Type:: Voided Performed By: #### A DDONUAPLUS ####[facility] Urothelial Cells 1-2 High 0-1 [facility] Comment on above: Order Comment: Name Collection Type:: Voided Performed By: #### A DDONUAPLUS ####[facility] WBC,Urine 1-2 Normal 0-4 [facility] Comment on above: Order Comment: Name Collection Type:: Voided Performed By: #### A DDONUAPLUS ####[place] [address] [address] Epithelial cells.squamous [# /area] in Urine sediment by Automated countOrdered By: Nish Davidson on 03-03-2024 Epithelial cells.squamous Auto (Urine sed) [#/Area] 1-2 [HPF] 0-2 [facility] Erythrocyte distribution wid th [Ratio] by Automated countOrdered By: James De on 03-03-2024 Erythrocyte distribution width (RBC) [Ratio] 12.6 % Normal 12.0-14.8 [facility] Comment on above: Performed By: #### B MP, SCAN CBC #### [facility] [address] Erythrocytes [#/area] in Uri ne sediment by Automated countOrdered By: Nish Davidson on 03-03-2024 RBC Auto (Urine sed) [#/Area] None seen [HPF] 0-4 [facility] Erythrocytes [#/volume] in B lood by Automated countOrdered By: James De on 03-03-2024 RBC (Bld) [#/Vol] 5.64 10*6/uL High 3.90-5.60 [facility] Comment on above: Performed By: #### B MP, SCAN CBC #### [facility] [address] Glucose [Mass/volume] in Ser um or PlasmaOrdered By: James De on 03-03-2024 Glucose [Mass/Vol] 83 mg/dL Normal 70-100 [facility] Comment on above: ADA recommended refe rence rangeRandom Glucose Reference Range is dependent on time and content of last meal. Glucose of more than 200 mg/dL in a nonstressed, ambulatory subject supports the diagnosis of Diabetes Mellitus. Result Comment: [place] om Glucose Reference Range is dependent on time and content of last meal. Glucose of more than 200 mg/dL in a nonstressed, ambulatory subject supports the diagnosis of Diabetes Mellitus. ADA recommended reference range Performed By: #### B MP, SCAN CBC #### [facility] [address] [place] [address] [place] Glucose [Mass/volume] in Uri ne by Test stripOrdered By: Nish Davidson on 03-03-2024 Glucose Test strip (U) [Mass/Vol] Normal mg/dL Normal [facility] Hematocrit [Volume Fraction] of Blood by Automated countOrdered By: James De on 03-03-2024 Hematocrit (Bld) [Volume fraction] 52.6 % High 38.8-50.0 [facility] Comment on above: Performed By: #### B MP, SCAN CBC #### [facility] [address] Hemoglobin Test strip Ql (U) Ordered By: Nish Davidson on 03-03-2024 Hemoglobin Ql (U) Negative Negative [facility] Hemoglobin [Mass/volume] in BloodOrdered By: James De on 03-03-2024 Hemoglobin (Bld) [Mass/Vol] 18.5 g/dL High 13.0-17.0 [facility] Comment on above: Performed By: #### B MP, SCAN CBC #### [facility] [address] [place] [address] [place] Hyaline casts [#/area] in Ur ine sediment by Automated countOrdered By: Nish Davidson on 03-03-2024 Hyaline casts Auto (Urine sed) [#/Area] 0-8 [LPF] 0-8 [facility] Ketones [Presence] in Urine by Test stripOrdered By: Nish Davidson on 03-03-2024 Ketones Ql (U) 2+ High Negative [facility] Comment on above: Order Comment: Name Collection Type:: Voided Performed By: #### A DDONUAPLUS ####[facility] Leukocyte esterase [Presence ] in Urine by Test stripOrdered By: Nish Davidson on 03-03-2024 Leukocyte esterase Test strip Ql (U) Negative Normal Negative [facility] Comment on above: Order Comment: Name Collection Type:: Voided Performed By: #### A DDONUAPLUS ####[address] Leukocytes [#/area] in Urine sediment by Automated countOrdered By: Nish Davidson on 03-03-2024 WBC Auto (Urine sed) [#/Area] 1-2 [HPF] 0-4 [facility] Leukocytes [#/volume] correc ernst for nucleated erythrocytes in Blood by Automated counOrdered By: James De on 03-03-2024 WBC corrected for nucl RBC Auto (Bld) [#/Vol] 9.0 10*3/uL 4.1-10.5 [facility] Leukocytes [#/volume] in Blo od by Automated countOrdered By: James De on 03-03-2024 WBC (Bld) [#/Vol] 9.0 10*3/uL Normal 4.1-10.5 [facility] Comment on above: Performed By: #### B MP, SCAN CBC #### [facility] [address] [place] [address] [place] Lymphocytes [#/volume] in Bl ood by Automated countOrdered By: James De on 03-03-2024 Lymphocytes (Bld) [#/Vol] 1.2 10*3/uL Normal 1.00-4.8 [facility] Comment on above: Performed By: #### B MP, SCAN CBC #### [facility] [address] [place] [address] [place] Lymphocytes/100 leukocytes i n Blood by Automated countOrdered By: James De on 03-03-2024 Lymphocytes/100 WBC (Bld) 13.4 % Normal . [facility] Comment on above: Performed By: #### B MP, SCAN CBC #### [facility] [address] MCH [Entitic mass] by Automa ernst countOrdered By: James De on 03-03-2024 MCH (RBC) [Entitic mass] 32.8 pg Normal 27.5-35.2 [facility] Comment on above: Performed By: #### B MP, SCAN CBC #### [facility] [address] MCHC Auto (RBC) [Mass/Vol]Or dered By: James De on 03-03-2024 MCHC (RBC) [Mass/Vol] 35.1 g/dL 32.5-35.6 [facility] MCV [Entitic volume] by Auto mated countOrdered By: James De on 03-03-2024 MCV (RBC) [Entitic vol] 93.4 fL Normal 83.5-101 F [facility] Comment on above: Performed By: #### B MP, SCAN CBC #### [facility] [address] Monocyte distribution width [Entitic volume] in Blood by AutomatedOrdered By: James De on 03-03-2024 Monocyte distribution width Auto (Bld) [Entitic vol] 17.08 % 0.00-20.00 [facility] Mucus [Presence] in Urine by AutomatedOrdered By: Nish Davidson on 03-03-2024 Mucus Auto Ql (U) 1+ [LPF] Abnormal [facility] Neutrophils [#/volume] in Bl ood by Automated countOrdered By: James De on 03-03-2024 Neutrophils (Bld) [#/Vol] 6.7 10*3/uL Normal 1.8-7.7 [facility] Comment on above: Performed By: #### B MP, SCAN CBC #### [facility] [address] Nitrite Test strip Ql (U)Ord ered By: Nish Davidson on 03-03-2024 Nitrite Ql (U) Negative Negative [facility] No Panel InformationOrdered By: James De on 03-03-2024 Estimated GFR (CKD-EPI) > 60.0 mL/Min [facility] Creatinine Clearance (Chem 68.43 [facility] Nucleated erythrocytes [Pres ence] in Blood by Automated countOrdered By: James De on 03-03-2024 Nucleated RBC Auto Ql (Bld) 0.4 /100{WBC} 0-0.5 [facility] Platelet adequacy [Presence] in Blood by Light microscopyOrdered By: James De on 03-03-2024 Platelets LM Ql (Bld) Normal Normal [facility] Platelet mean volume [Entiti c volume] in Blood by Automated countOrdered By: James De on 03-03-2024 Platelet mean volume (Bld) [Entitic vol] 8.4 fL Normal 6.6-10.1 [facility] Comment on above: Performed By: #### B MP, SCAN CBC #### [facility] [address] Platelet morphology finding [Identifier] in BloodOrdered By: James De on 03-03-2024 Platelet morphology finding Nom (Bld) Normal Normal [facility] Platelets [#/volume] in Bloo d by Automated countOrdered By: James De on 03-03-2024 Platelets (Bld) [#/Vol] 207 10*3/uL Normal 150-450 [facility] Comment on above: Performed By: #### B MP, SCAN CBC #### [facility] [address] [place] [address] [place] Potassium [Moles/volume] in Serum or PlasmaOrdered By: James De on 03-03-2024 Potassium [Moles/Vol] 3.7 mmol/L Normal 3.5-5.1 [facility] Comment on above: Performed By: #### B MP, SCAN CBC #### [facility] [address] [place] [address] [place] Protein Test strip (U) [Mass /Vol]Ordered By: Nish Davidson on 03-03-2024 Protein (U) [Mass/Vol] Trace mg/dL High Negative F [facility] RBC morphologyOrdered By: Asad De on 03-03-2024 RBC morphology finding Nom (Bld) Normal Normal Normal [facility] Comment on above: Performed By: #### B MP, SCAN CBC #### [address] Scan and CBCon 03-03-2024 Mean Corpuscular HGB Conc 35.1 g/dL Normal 32.5-35.6 [facility] Comment on above: Performed By: #### B MP, SCAN CBC #### [address] Monocytes/100 WBC (Bld) 17.08 % Normal 0.00-20.00 [facility] Comment on above: Performed By: #### B MP, SCAN CBC #### [address] NRBC% 0.4 /100{WBC} Normal 0-0.5 [facility] Comment on above: Performed By: #### B MP, SCAN CBC #### [address] Platelet Estimate Normal Normal Normal [facility] Comment on above: Performed By: #### B MP, SCAN CBC #### [facility] [address] [place] [address] Platelet Morphology Normal Normal Normal [facility] Comment on above: Result Comment: PERF ORMED BY: [place] [address] PATHOLOGIST [employer]ADER GAURAV CONWAY M.D. Performed By: #### B MP, SCAN CBC #### [facility] [address] [place] [address] Serum or plasma anion gap de terminationOrdered By: James De on 03-03-2024 Anion gap [Moles/Vol] 12.4 mmol/L Normal 6.0-15.0 [facility] Comment on above: Performed By: #### B MP, SCAN CBC #### [facility] [address] [place] [address] [place] Sodium [Moles/volume] in Ser um or PlasmaOrdered By: James De on 03-03-2024 Sodium [Moles/Vol] 136 mmol/L Normal 136-145 [facility] Comment on above: Performed By: #### B MP, SCAN CBC #### [facility] [address] Specific gravity Test strip (U) [Rel density]Ordered By: Nish Davidson on 03-03-2024 Specific gravity (U) [Rel density] 1.015 1.001-1.030 [facility] Transitional cells [#/area] in Urine by Computer assisted methodOrdered By: Nish Davidson on 03-03-2024 Transitional cells Computer assisted (U) [#/Area] 1-2 [HPF] High 0-1 [facility] Urea nitrogen [Mass/volume] in Serum or PlasmaOrdered By: James De on 03-03-2024 Urea nitrogen [Mass/Vol] 8 mg/dL Normal 7-25 [facility] Comment on above: Performed By: #### B MP, SCAN CBC #### [facility] [address] [place] [address] Urine appearanceOrdered By: Nish Davidson on 03-03-2024 Appearance (U) Clear Normal Clear [facility] Comment on above: Order Comment: Name Collection Type:: Voided Performed By: #### A DDONUAPLUS ####[facility] [id number] [place] [address] Urobilinogen Test strip (U) [Mass/Vol]Ordered By: Nish Davidson on 03-03-2024 Urobilinogen (U) [Mass/Vol] Normal mg/dL Normal [facility] XR KUBon 03-03-2024 XR KUB [facility] [place] [address] [place] [address] XRay Report Signed Patient: Harlan Russell MR#: [id number] 2 : 1970 Acct:[id number] Age/Sex: 53 / M ADM Date: 03/03/24 Loc: ER Room: Type: [facility] ER Attending Dr: Copies to: James [...] Dante Lisa M.D.03/03/2024 2:38 PM Dictation Location: [place] [address] Transcribed By: [facility] 03/03/24 1438 Dictated By: Dante Lisa II, MD 03/03/241436 Signed By: 03/03/24 1438 Normal [facility] pH of Urine by Test stripOrd ered By: Nish Davidson on 03-03-2024 pH (U) 6.0 [pH] Normal 5.0-9.0 [facility] Comment on above: Order Comment: Name Collection Type:: Voided Performed By: #### A DDONUAPLUS ####[facility] [address] [place] [id number] [facility] Surgical Pathologyon 024 Surgical Pathology Normal [facility] Comment on above: Result Comment: [facility] [address] [place] [address] Surgical Pathology Consultation Patient Name:HARLAN RUSSELL:1970 (Age: 53)Gender:MTaken:4Reported:4Physician(s):Jennyfer Augustin MD ([phone])Copy To: Rec. #:[id number]: #[id number] Final Pathologic Diagnosis 1. Colon polyp 55cm: Hyperplastic polyp. 2. Colon polyp 35cm: Tubular adenoma. Report Electronically Signed Out st02/22/2024Keren Bee MD Interpretation performed at [facility] [place], [address] [place], [address], License number: [id number]. Clinical History Change in bowel habits. Gross Description 1. Received in formalin labeled, NOFTZ, 55 cm is a mccray-richardson 0.3 cm soft tissue.. The specimen is filtered and entirely submitted in a single cassette. (1, ns, [id number], m8) SM 2. Received in formalin labeled, NOFTZ, 35 cm is a pale richardson 0.3 cm the specimen is filtered and entirely submitted in a single cassette. (1, ns, [id number], m8) SM /02/20/2024GR Specimen(s) Received 1: Colon polyp 55cm 2: Colon polyp 35cm Fee Codes(s): 1; 90381 2; 72020 Patient Educationon 02-07-20 Patient Education Oncology Cancer [...] if anything looks unusual. Men with a ypgrkk-ovlt-szxrzz risk for skin cancer may want to see a shipping and receiving specialist (cigar making machine operator) for an annual body check. What are the benefits of screening? Cancer screening is done to look for cancer in the very early stages, before it spreads and becomes harder to treat and before you would start to notice symptoms. Finding cancer early improves the chances of successful treatment. It ma (more content not included)... Normal [facility] Urology Office/Clinic Noteon 02-07-2024 Urology Office/Clinic Note Chief Complaint Pt is here for urinary retention [facility] f/u HPI Staff Harlan is a 53 y.o. male here for [facility] f/[facility], urinary retention. Pt presented to [facility] 01/[facility]24 due to inability to urinate. PVR done @ [facility] showed 900cc of urine, Murray placed. Pt [...] with voice recognition artificial intelligence software, specifically [employer], eduPad and or Wildfire. 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, unable to [...] diphtheria/pertuss is, acel/tetanus adult 10/27/2013 Recorded Normal [facility] Comment on above: Result Comment: Elec tronically Signed By: JOSEPH Allen APRN, Didi Martin\.br\Date and Time Signed: 02/07/24 23:06 EDT ED Note-Physicianon 02-03-20 ED Note-Physician [id number]#1.00TIFF [facility] Formson 02-03-2024 Forms [id number]#1.00TIFF [facility] Screenson 02-03-2024 Screens [id number]#1.00TIFF Normal [facility] Screens [id number]#1.00TIFF [facility] Ambulatory Visit Summaryon 0 02-02-2024 Ambulatory Visit [...] you for choosing us for your care. [facility] Ambulatory Visit Summary HARLAN RUSSELL :1970 Visit [...] for choosing us for your care. Normal [facility] CT abdomen pelvis wo conon 0 01-30-2024 CT abdomen pelvis wo con [facility] [place] [address] CT Scan Report Signed Patient: Harlan Russell MR#: [id number] 2 : 1970 Acct:[id number] Age/Sex: 53 / M ADM Date: 01/29/24 Loc: ER Room: Type: [facility] ER Attending Dr: Copies to: Jennyfer [...] Anni Whitley M.D.01/30/2024 8:58 AM Dictation Location: [place] [address] Transcribed By: MAGDIEL 01/30/24 0858 Dictated By: Anni Whitley MD 01/30/24 0851 Signed By: 01/30/24 0858 Normal [facility] Physician Group Alanine aminotransferase [En zymatic activity/volume] in Serum or PlasmaOrdered By: Jennyfer Winkler on 01-29-2024 ALT [Catalytic activity/Vol] 24 U/L Normal [facility] Comment on above: Performed By: #### H EPATIC, LIPASE, DIFF CBC, GLADYS, BMP #### [address] Albumin [Mass/volume] in Ser um or Plasma by Bromocresol green (BCG) dye binding methoOrdered By: Jennyfer Winkler on 01-29-2024 Albumin BCG dye [Mass/Vol] 4.9 g/dL 3.5-5.7 [facility] Alkaline phosphatase [Enzyma tic activity/volume] in Serum or PlasmaOrdered By: Jennyfer Winkler on 01-29-2024 ALP [Catalytic activity/Vol] 96 U/L Normal 34-104 [facility] Comment on above: Performed By: #### H EPATIC, LIPASE, DIFF CBC, GLADYS, BMP #### [facility] [address] [place] [address] Amylase [Enzymatic activity/ volume] in Serum or PlasmaOrdered By: Jennyfer Winkler on 01-29-2024 Amylase [Catalytic activity/Vol] 47 U/L Normal 29-103 [facility] Comment on above: Performed By: #### H EPATIC, LIPASE, DIFF CBC, GLADYS, BMP #### [address] Aspartate aminotransferase [ Enzymatic activity/volume] in Serum or PlasmaOrdered By: Jennyfer Winkler on 01-29-2024 AST [Catalytic activity/Vol] 21 U/L Normal 13-39 [facility] Comment on above: Performed By: #### H EPATIC, LIPASE, DIFF CBC, GLADYS, BMP #### [address] Basic Metabolic Panelon Creatinine Clr Calc Pharmacy 83.32 Normal [facility] Comment on above: Performed By: #### H EPATIC, LIPASE, DIFF CBC, GLADYS, BMP #### [address] GFR/1.73 sq M.predicted MDRD (S/P/Bld) [Vol rate/Area] mL/min/{1.73_m2} Normal [facility] Comment on above: Performed By: #### H EPATIC, LIPASE, DIFF CBC, GLADYS, BMP #### [facility] [address] [place] [address] Basophils Auto (Bld) [#/Vol] Ordered By: Jennyfer Winkler on 01-29-2024 Basophils (Bld) [#/Vol] N/A [facility] Basophils/100 WBC Auto (Bld) Ordered By: Jennyfer Winkler on 01-29-2024 Basophils/100 WBC (Bld) N/A [facility] Bilirubin Test strip Ql (U)O rdered By: Jennyfer Winkler on 01-29-2024 Bilirubin Ql (U) Negative Negative [facility] Bilirubin.direct [Mass/volum e] in Serum or PlasmaOrdered By: Jennyfer Winkler on 01-29-2024 Bilirubin.direct [Mass/Vol] 0.10 mg/dL 0.03-0.18 [facility] Bilirubin.total [Mass/volume ] in Serum or PlasmaOrdered By: Jennyfer Winkler on 01-29-2024 Bilirubin [Mass/Vol] 0.8 mg/dL Normal 0.3-1.0 [facility] Comment on above: Performed By: #### H EPATIC, LIPASE, DIFF CBC, GLADYS, BMP #### [facility] [address] [place] [address] [place] Calcium [Mass/volume] in Ser um or PlasmaOrdered By: Jennyfer Winkler on 01-29-2024 Calcium [Mass/Vol] 10.2 mg/dL Normal 8.6-10.3 [facility] Comment on above: Performed By: #### H EPATIC, LIPASE, DIFF CBC, GLADYS, BMP #### [facility] [address] [place] [address] [place] Carbon dioxide, total [Moles /volume] in Serum or PlasmaOrdered By: Jennyfer Winkler on 01-29-2024 CO2 [Moles/Vol] 26.4 mmol/L Normal 21.0-31.0 [facility] Comment on above: Performed By: #### H EPATIC, LIPASE, DIFF CBC, GLADYS, BMP #### [facility] [address] [place] [address] [place] Chloride [Moles/volume] in S dereje or PlasmaOrdered By: Jennyfer Winkler on 01-29-2024 Chloride [Moles/Vol] 98 mmol/L Normal 98-107 [facility] Comment on above: Performed By: #### H EPATIC, LIPASE, DIFF CBC, GLADYS, BMP #### [facility] [address] [place] [address] [place] Color of Urine by AutoOrdere d By: Jennyfer Winkler on 01-29-2024 Color (U) Colorless Normal Yellow [facility] Comment on above: Order Comment: Name Collection Type:: Murray Catheter Performed By: #### U A #### [address] Creatinine [Mass/volume] in Serum or PlasmaOrdered By: Jennyfer Winkler on 01-29-2024 Creatinine [Mass/Vol] 1.07 mg/dL Normal 0.70-1.30 [facility] Comment on above: Performed By: #### H EPATIC, LIPASE, DIFF CBC, GLADYS, BMP #### [address] Diff and CBCon 01-29-2024 Giant Platelet Tally 1 /100{WBC} Normal [facility] Comment on above: Performed By: #### H EPATIC, LIPASE, DIFF CBC, GLADYS, BMP #### [address] Mean Corpuscular HGB Conc 35.0 g/dL Normal 32.5-35.6 [facility] Comment on above: Performed By: #### H EPATIC, LIPASE, DIFF CBC, GLADYS, BMP #### [address] Monocytes/100 WBC (Bld) 18.41 % Normal 0.00-20.00 [facility] Comment on above: Result Comment: PERF ORMED BY: [place] [address] PATHOLOGIST [employer] GAURAV CONWAY M.D. Performed By: #### H EPATIC, LIPASE, DIFF CBC, GLADYS, BMP #### [address] Platelet Estimate Normal Normal Normal [facility] Comment on above: Performed By: #### H EPATIC, LIPASE, DIFF CBC, GLADYS, BMP #### [address] Platelet Morphology Normal Normal Normal [facility] Comment on above: Result Comment: PERF ORMED BY: [place] [address] PATHOLOGIST [employer] GAURAV CONWAY M.D. Performed By: #### H EPATIC, LIPASE, DIFF CBC, GLADYS, BMP #### [address] Reactive Lymphocytes 6 % Normal 0-12 [facility] Comment on above: Performed By: #### H EPATIC, LIPASE, DIFF CBC, GLADYS, BMP #### [address] Eosinophils Auto (Bld) [#/Vo l]Ordered By: Jennyfer Winkler on 01-29-2024 Eosinophils (Bld) [#/Vol] N/A [facility] Eosinophils/100 WBC Auto (Bl d)Ordered By: Jennyfer Winkler on 01-29-2024 Eosinophils/100 WBC (Bld) N/A [facility] Eosinophils/100 leukocytes i n Blood by Manual countOrdered By: Jennyfer Winkler on 01-29-2024 Eosinophils/100 WBC (Bld) 5 % High 1-3 [facility] Comment on above: Performed By: #### H EPATIC, LIPASE, DIFF CBC, GLADYS, BMP #### [address] Erythrocyte distribution wid th [Ratio] by Automated countOrdered By: Jennyfer Winkler on 01-29-2024 Erythrocyte distribution width (RBC) [Ratio] 12.1 % Normal 12.0-14.8 [facility] Comment on above: Performed By: #### H EPATIC, LIPASE, DIFF CBC, GLADYS, BMP #### [address] Erythrocytes [#/volume] in B lood by Automated countOrdered By: Jennyfer Winkler on 01-29-2024 RBC (Bld) [#/Vol] 5.83 10*6/uL High 3.90-5.60 [facility] Comment on above: Performed By: #### H EPATIC, LIPASE, DIFF CBC, GLADYS, BMP #### [address] Giant platelets/100 leukocyt es [Ratio] in Blood by Manual countOrdered By: Jennyfer Winkler on 01-29-2024 Giant platelets/100 WBC Manual cnt (Bld) [Ratio] 1 /100{WBC} [facility] Glucose [Mass/volume] in Ser um or PlasmaOrdered By: Jennyfer Winkler on 01-29-2024 Glucose [Mass/Vol] 103 mg/dL High 70-100 [facility] Comment on above: ADA recommended refe rence rangeRandom Glucose Reference Range is dependent on time and content of last meal. Glucose of more than 200 mg/dL in a nonstressed, ambulatory subject supports the diagnosis of Diabetes Mellitus. Result Comment: [place] om Glucose Reference Range is dependent on time and content of last meal. Glucose of more than 200 mg/dL in a nonstressed, ambulatory subject supports the diagnosis of Diabetes Mellitus. ADA recommended reference range Performed By: #### H EPATIC, LIPASE, DIFF CBC, GLADYS, BMP #### [facility] [address] Glucose [Mass/volume] in Uri ne by Test stripOrdered By: Jennyfer Winkler on 01-29-2024 Glucose Test strip (U) [Mass/Vol] Normal mg/dL Normal [facility] Hematocrit [Volume Fraction] of Blood by Automated countOrdered By: Jennyfer Winkler on 01-29-2024 Hematocrit (Bld) [Volume fraction] 54.1 % High 38.8-50.0 [facility] Comment on above: Performed By: #### H EPATIC, LIPASE, DIFF CBC, GLADYS, BMP #### [facility] [address] Hemoglobin Test strip Ql (U) Ordered By: Jennyfer Winkler on 01-29-2024 Hemoglobin Ql (U) Negative Negative [facility] Hemoglobin [Mass/volume] in BloodOrdered By: Jennyfer Winkler on 01-29-2024 Hemoglobin (Bld) [Mass/Vol] 18.9 g/dL High 13.0-17.0 [facility] Comment on above: Performed By: #### H EPATIC, LIPASE, DIFF CBC, GLADYS, BMP #### [facility] [address] Hepatic Panelon 01-29-2024 Albumin [Mass/Vol] 4.9 g/dL Normal 3.5-5.7 [facility] Comment on above: Performed By: #### H EPATIC, LIPASE, DIFF CBC, GLADYS, BMP #### [facility] [address] Bilirubin,Indirect 0.7 mg/dL Normal [facility] Comment on above: Performed By: #### H EPATIC, LIPASE, DIFF CBC, GLADYS, BMP #### [facility] [address] Bilirubin.indirect [Mass/Vol] 0.10 mg/dL Normal 0.03-0.18 [facility] Comment on above: Performed By: #### H EPATIC, LIPASE, DIFF CBC, GLADYS, BMP #### [facility] [address] Ketones [Presence] in Urine by Test stripOrdered By: Jennyfer Winkler on 01-29-2024 Ketones Ql (U) Negative Normal Negative [facility] Comment on above: Order Comment: Name Collection Type:: Murray Catheter Performed By: #### U A #### [address] Leukocyte esterase [Presence ] in Urine by Test stripOrdered By: Jennyfer Wnikler on 01-29-2024 Leukocyte esterase Test strip Ql (U) Negative Normal Negative [facility] Comment on above: Order Comment: Name Collection Type:: Murray Catheter Performed By: #### U A #### [address] Leukocytes [#/volume] correc ernst for nucleated erythrocytes in Blood by Automated counOrdered By: Jennyfer Winkler on 01-29-2024 WBC corrected for nucl RBC Auto (Bld) [#/Vol] 6.8 10*3/uL 4.1-10.5 [facility] Leukocytes [#/volume] in Blo od by Automated countOrdered By: Jennyfer Winkler on 01-29-2024 WBC (Bld) [#/Vol] 6.8 10*3/uL Normal 4.1-10.5 [facility] Comment on above: Performed By: #### H EPATIC, LIPASE, DIFF CBC, GLADYS, BMP #### [facility] [address] Lipase [Enzymatic activity/v olume] in Serum or PlasmaOrdered By: Jennyfer Winkler on 01-29-2024 Lipase [Catalytic activity/Vol] 29.0 U/L Normal 11.0-82.0 [facility] Comment on above: Result Comment: PERF ORMED BY: [place] [address] PATHOLOGIST [employer] GAURAV CONWAY M.D. Performed By: #### H EPATIC, LIPASE, DIFF CBC, GLADYS, BMP #### [address] Lymphocytes Auto (Bld) [#/Vo l]Ordered By: Jennyfer Winkler on 01-29-2024 Lymphocytes (Bld) [#/Vol] N/A [facility] Lymphocytes/100 WBC Auto (Bl d)Ordered By: Jennyfer Winkler on 01-29-2024 Lymphocytes/100 WBC (Bld) N/A [facility] Lymphocytes/100 leukocytes i n Blood by Manual countOrdered By: Jennyfer Winkler on 01-29-2024 Lymphocytes/100 WBC (Bld) 28 % Normal 18-42 [facility] Comment on above: Performed By: #### H EPATIC, LIPASE, DIFF CBC, GLADYS, BMP #### [facility] [address] [place] [address] MCH [Entitic mass] by Automa ernst countOrdered By: Jennyfer Winkler on 01-29-2024 MCH (RBC) [Entitic mass] 32.4 pg Normal 27.5-35.2 [facility] Comment on above: Performed By: #### H EPATIC, LIPASE, DIFF CBC, GLADYS, BMP #### [facility] [address] [place] [address] MCHC Auto (RBC) [Mass/Vol]Or dered By: Jennyfer Winkler on 01-29-2024 MCHC (RBC) [Mass/Vol] 35.0 g/dL 32.5-35.6 [facility] MCV [Entitic volume] by Auto mated countOrdered By: Jennyfer Winkler on 01-29-2024 MCV (RBC) [Entitic vol] 92.7 fL Normal 83.5-101 F [facility] Comment on above: Performed By: #### H EPATIC, LIPASE, DIFF CBC, GLADYS, BMP #### [facility] [address] Manual blood segmented neutr ophils/100 leukocytesOrdered By: Jennyfer Winkler on 01-29-2024 Segmented neutrophils/100 WBC (Bld) 58 % Normal 50-70 [facility] Comment on above: Performed By: #### H EPATIC, LIPASE, DIFF CBC, GLADYS, BMP #### [facility] [address] Monocyte distribution width [Entitic volume] in Blood by AutomatedOrdered By: Jennyfer Winkler on 01-29-2024 Monocyte distribution width Auto (Bld) [Entitic vol] 18.41 % 0.00-20.00 [facility] Monocytes Auto (Bld) [#/Vol] Ordered By: Jennyfer Winkler on 01-29-2024 Monocytes (Bld) [#/Vol] N/A F [facility] Monocytes/100 WBC Auto (Bld) Ordered By: Jennyfer Winkler on 01-29-2024 Monocytes/100 WBC (Bld) N/A F [facility] Monocytes/100 leukocytes in Blood by Manual countOrdered By: Jenynfer Winkler on 01-29-2024 Monocytes/100 WBC (Bld) 4 % Normal 2-11 [facility] Comment on above: Performed By: #### H EPATIC, LIPASE, DIFF CBC, GLADYS, BMP #### [facility] [address] Neutrophils Auto (Bld) [#/Vo l]Ordered By: Jennyfer Winkler on 01-29-2024 Neutrophils (Bld) [#/Vol] N/A [facility] Neutrophils/100 WBC Auto (Bl d)Ordered By: Jennyfer Winkler on 01-29-2024 Neutrophils/100 WBC (Bld) N/A [facility] Nitrite Test strip Ql (U)Ord ered By: Jennyfer Winkler on 01-29-2024 Nitrite Ql (U) Negative Negative [facility] No Panel InformationOrdered By: Jennyfer Winkler on 01-29-2024 Estimated GFR (CKD-EPI) > 60.0 mL/Min [facility] Creatinine Clearance (Chem 83.32 [facility] Nucleated erythrocytes [Pres ence] in Blood by Automated countOrdered By: Jennyfer Winkler on 01-29-2024 Nucleated RBC Auto Ql (Bld) N/A [facility] Platelet adequacy [Presence] in Blood by Light microscopyOrdered By: Jennyfer Winkler on 01-29-2024 Platelets LM Ql (Bld) Normal Normal [facility] Platelet mean volume [Entiti c volume] in Blood by Automated countOrdered By: Jennyfer Winkler on 01-29-2024 Platelet mean volume (Bld) [Entitic vol] 8.1 fL Normal 6.6-10.1 [facility] Comment on above: Performed By: #### H EPATIC, LIPASE, DIFF CBC, GLADYS, BMP #### [facility] [address] Platelet morphology finding [Identifier] in BloodOrdered By: Jennyfer Winkler on 01-29-2024 Platelet morphology finding Nom (Bld) Normal Normal [facility] Platelets [#/volume] in Bloo d by Automated countOrdered By: Jennyfer Winkler on 01-29-2024 Platelets (Bld) [#/Vol] 245 10*3/uL Normal 150-450 [facility] Comment on above: Performed By: #### H EPATIC, LIPASE, DIFF CBC, GLADYS, BMP #### [facility] [address] [place] [address] [place] Potassium [Moles/volume] in Serum or PlasmaOrdered By: Jennyfer Winkler on 01-29-2024 Potassium [Moles/Vol] 3.9 mmol/L Normal 3.5-5.1 [facility] Comment on above: Performed By: #### H EPATIC, LIPASE, DIFF CBC, GLADYS, BMP #### [facility] [address] [place] [address] [place] Protein Test strip (U) [Mass /Vol]Ordered By: Jennyfer Winkler on 01-29-2024 Protein (U) [Mass/Vol] Negative Negative [facility] Protein [Mass/volume] in Ser um or PlasmaOrdered By: Jennyfer Winkler on 01-29-2024 Protein [Mass/Vol] 8.0 g/dL Normal 6.4-8.9 [facility] Comment on above: Performed By: #### H EPATIC, LIPASE, DIFF CBC, GLADYS, BMP #### [address] RBC morphologyOrdered By: Ella Winkler on 01-29-2024 RBC morphology finding Nom (Bld) Normal Normal Normal [facility] Comment on above: Performed By: #### H EPATIC, LIPASE, DIFF CBC, GLADYS, BMP #### [address] Serum globulin measurement b y calculation (mass/volume)Ordered By: Jennyfer Winkler on 01-29-2024 Globulin (S) [Mass/Vol] 3.1 g/dL Normal F [facility] Comment on above: Performed By: #### H EPATIC, LIPASE, DIFF CBC, GLADYS, BMP #### [address] Serum or plasma albumin/glob ulin mass ratioOrdered By: Jennyfer Winkler on 01-29-2024 Albumin/Globulin [Mass ratio] 1.6 {ratio} Normal [facility] Comment on above: Performed By: #### H EPATIC, LIPASE, DIFF CBC, GLADYS, BMP #### [address] Serum or plasma anion gap de terminationOrdered By: Jennyfer Winkler on 01-29-2024 Anion gap [Moles/Vol] 10.5 mmol/L Normal 6.0-15.0 [facility] Comment on above: Performed By: #### H EPATIC, LIPASE, DIFF CBC, GLADYS, BMP #### [address] Serum or plasma non-glucuron idated bilirubin measurement (mass/volume)Ordered By: Jennyfer Winkler on 01-29-2024 Bilirubin.indirect [Mass/Vol] 0.7 mg/dL [facility] Sodium [Moles/volume] in Ser um or PlasmaOrdered By: Jenynfer Winkler on 01-29-2024 Sodium [Moles/Vol] 131 mmol/L Low 136-145 [facility] Comment on above: Performed By: #### H EPATIC, LIPASE, DIFF CBC, GLADYS, BMP #### [facility] [address] Specific gravity Test strip (U) [Rel density]Ordered By: Jennyfer Winkler on 01-29-2024 Specific gravity (U) [Rel density] 1.003 1.001-1.030 [facility] Urea nitrogen [Mass/volume] in Serum or PlasmaOrdered By: Jennyfer Winkler on 01-29-2024 Urea nitrogen [Mass/Vol] 6 mg/dL Low 7-25 [facility] Comment on above: Performed By: #### H EPATIC, LIPASE, DIFF CBC, GLADYS, BMP #### [facility] [address] Urinalysison 01-29-2024 Bilirubin,Urine Negative Normal Negative [facility] Comment on above: Order Comment: Name Collection Type:: Murray Catheter Performed By: #### U A #### [address] Glucose Ql (U) Normal Normal Normal [facility] Comment on above: Order Comment: Name Collection Type:: Murray Catheter Performed By: #### U A #### [address] Nitrite,Urine Negative Normal Negative [facility] Comment on above: Order Comment: Name Collection Type:: Murray Catheter Performed By: #### U A #### [address] Occult Blood,Urine Negative Normal Negative [facility] Comment on above: Order Comment: Name Collection Type:: Murray Catheter Result Comment: PERF ORMED BY: [place] [address] PATHOLOGIST [employer] GAURAV CONWAY M.D. Performed By: #### U A #### [address] Protein,Urine Negative Normal Negative [facility] Comment on above: Order Comment: Name Collection Type:: Murray Catheter Performed By: #### U A #### [address] [place] [address] [place] Specificy Proctor,Urine 1.003 Normal 1.001-1.030 [facility] Comment on above: Order Comment: Name Collection Type:: Murray Catheter Performed By: #### U A #### [facility] [address] Urobilinogen,Urine Normal Normal Normal [facility] Comment on above: Order Comment: Name Collection Type:: Murray Catheter Performed By: #### U A #### [address] Urine appearanceOrdered By: Jennyfer Winkler on 01-29-2024 Appearance (U) Clear Normal Clear [facility] Comment on above: Order Comment: Name Collection Type:: Murray Catheter Performed By: #### U A #### [address] Urobilinogen Test strip (U) [Mass/Vol]Ordered By: Jennyfer Winkler on 01-29-2024 Urobilinogen (U) [Mass/Vol] Normal mg/dL Normal [facility] Variant lymphocytes/100 WBC Manual cnt (Bld)Ordered By: Jennyfer Winkler on 01-29-2024 Variant lymphocytes/100 WBC (Bld) 6 % 0-12 [facility] pH of Urine by Test stripOrd ered By: Jennyfer Winkler on 01-29-2024 pH (U) 7.5 [pH] Normal 5.0-9.0 [facility] Comment on above: Order Comment: Name Collection Type:: Murray Catheter Performed By: #### U A #### [address] CBC AUTO DIFFon 03-26-2022 BASO # 0.1 103/ul Normal 0.0-0.1 [facility] Comment on above: Performed By: #### C BC #### [facility] [address] [address] [address] Pravin Travis Basophils/100 WBC (Bld) 0.7 % Normal 0.2-2.0 [facility] Comment on above: Performed By: #### C BC #### [facility] [address] [place] [address] Dr. Pravin Travis EO # 0.6 103/ul Normal 0.0-0.7 [facility] Comment on above: Performed By: #### C BC #### [facility] [address] [place] [address] Dr. Pravin Travis Eosinophils/100 WBC (Bld) 7.4 % Critically high 0.9-7.0 [facility] Comment on above: Performed By: #### C BC #### [facility] [address] [place] [address] Dr. Pravin Travis Erythrocyte distribution width (RBC) [Ratio] 12.3 % Normal 11.0-15.0 [facility] Comment on above: Performed By: #### C BC #### [facility] [address] [place] [address] Dr. Pravin Travis Hematocrit (Bld) [Volume fraction] 47.2 % Normal 42.0-54.0 [facility] Comment on above: Performed By: #### C BC #### [facility] [address] [place] [address] Dr. Pravin Travis Hemoglobin (Bld) [Mass/Vol] 16.2 g/dL Normal 14.0-18.0 [facility] Comment on above: Performed By: #### C BC #### [facility] [address] [place] [address] Dr. Pravin Travis IG # 0.03 10e3/ul Normal 0.00-0.03 [facility] Comment on above: Performed By: #### C BC #### [facility] [address] [place] [address] Dr. Pravin Travis IG % 0.4 % Normal 0.0-0.5 [facility] Comment on above: Performed By: #### C BC #### [facility] [address] [place] [address] Dr. Pravin Travis LYMPH # 2.1 103/ul Normal 1.2-3.8 [facility] Comment on above: Performed By: #### C BC #### [facility] [address] [place] [address] Dr. Pravin Travis Lymphocytes/100 WBC (Bld) 24.3 % Normal 20.5-60.0 [facility] Comment on above: Performed By: #### C BC #### [facility] [address] [place] [address] Dr. Pravin Travis MANUAL DIFF REQ NO Normal [facility] Comment on above: Performed By: #### C BC #### [facility] [address] [place] [address] Dr. Pravin Travis MCH (RBC) [Entitic mass] 32.6 pg Normal 25.9-34.0 [facility] Comment on above: Performed By: #### C BC #### [facility] [address] [place] [address] Dr. Pravin Travis MCHC (RBC) [Mass/Vol] 34.3 g/dL Normal 29.9-35.2 [facility] Comment on above: Performed By: #### C BC #### [facility] [address] [place] [address] Dr. Pravin Travis MCV (RBC) [Entitic vol] 95.0 fL Critically high 80.0-94 .0 [facility] Comment on above: Performed By: #### C BC #### [facility] [address] [place] [address] Dr. Pravin Travis MONO # 0.8 103/ul Normal 0.3-0.8 [facility] Comment on above: Performed By: #### C BC #### [facility] [address] [place] [address] Dr. Pravin Travis Monocytes/100 WBC (Bld) 9.7 % Normal 1.7-12.0 [facility] Comment on above: Performed By: #### C BC #### [facility] [address] [place] [address] Dr. Pravin Travis NEUT # 4.9 103/ul Normal 1.4-6.5 [facility] Comment on above: Performed By: #### C BC #### [facility] [address] [place] [address] Dr. Pravin Travis Neutrophils/100 WBC (Bld) 57.5 % Normal 43.0-75.0 [facility] Comment on above: Performed By: #### C BC #### [facility] [address] [place] [address] Dr. Pravin Travis Platelet mean volume (Bld) [Entitic vol] 10.4 fL Normal 9.5-13.5 [facility] Comment on above: Performed By: #### C BC #### [facility] [address] [place] [address] Dr. Pravin Travis PLT 215 103/ul Normal 150-450 [facility] [facility] Comment on above: Performed By: #### C BC #### [facility] [address] [place] [address] Dr. Pravin Travis RBC 4.97 106/ul Normal 4.70-6.10 [facility] Comment on above: Performed By: #### C BC #### [facility] [address] [place] [address] Dr. Pravin Travis WBC 8.6 103/ul Normal 4.0-11.0 [facility] Comment on above: Performed By: #### C BC #### [facility] [address] [place] [address] ABD/PELV W CONon [...] ALANA MORROW Date: 2022-03-26 01:45 Normal [facility] ER URINE PROFILEon 2 Bilirubin Ql (U) Negative Normal NEGATIVE The [facility] Comment on above: Performed By: #### E RUR #### [facility] [address] [place] [address] Dr. Pravin Travis Clarity (U) SL CLOUDY Abnormal CLEAR [facility] Comment on above: Performed By: #### E RUR #### [facility] [address] [address] [address] Pravin Travis Color (U) LT. YELLOW Normal YELLOW [facility] Comment on above: Performed By: #### E RUR #### [facility] [address] [place] [address] Dr. Pravin TURK A micrscopic examination will be performed if indicated. Normal [facility] Comment on above: Performed By: #### E RUR #### [facility] [address] [place] [address] Dr. Pravin Travis Glucose Ql (U) Negative Normal NEGATIVE The [facility] Comment on above: Performed By: #### E RUR #### [facility] [address] [place] [address] Dr. Pravin Travis Hemoglobin Ql (U) Negative Normal NEGATIVE The [facility] Comment on above: Performed By: #### E RUR #### [facility] [address] [place] [address] Dr. Pravin Travis Ketones Ql (U) Negative Normal NEGATIVE The [facility] Comment on above: Performed By: #### E RUR #### [facility] [address] [place] [address] Dr. Pravin Travis LEUKOCYTES Negative Normal NEGATIVE [facility] Comment on above: Performed By: #### E RUR #### [facility] [address] [place] [address] Dr. Pravin Travis Nitrite Ql (U) Negative Normal NEGATIVE The [facility] Comment on above: Performed By: #### E RUR #### [facility] [address] [address] [address] Pravin rTavis pH (U) 7.5 [pH] Normal 5-9 [facility] Comment on above: Performed By: #### E RUR #### [facility] [address] [place] [address] Dr. Pravin Travis SPEC GRAVITY 1.015 Normal 1.005-<=1.02 5 [facility] Comment on above: Performed By: #### E RUR #### [facility] [address] [place] [address] Dr. Pravin Travis UA PROTEIN Negative Normal NEGATIVE/ TRACE [facility] Comment on above: Performed By: #### E RUR #### [facility] [address] [place] [address] Dr. Pravin Travis UR MICRO IND NOT INDICATED Normal [facility] Comment on above: Performed By: #### E RUR #### [facility] [address] [place] [address] Dr. Pravin Travis Urobilinogen Qn (U) 0.2 {Katie'U}/dL Normal 0.2 - 1. 0 [facility] Comment on above: Performed By: #### E RUR #### [facility] [address] [place] [address] Dr. Pravin Travis PROF 14(COMP METB)on 022 Albumin [Mass/Vol] 4.3 g/dL Normal 3.4-5.0 [facility] Comment on above: Performed By: #### C MP #### [facility] [address] [place] [address] Dr. Pravin Travis Albumin/Globulin [Mass ratio] 1.3 {ratio} Normal [facility] Comment on above: Performed By: #### C MP #### [facility] [address] [place] [address] Dr. Pravin Travis ALP [Catalytic activity/Vol] 92 U/L Normal 46-116 [facility] Comment on above: Performed By: #### C MP #### [facility] [address] [address] [address] Pravin Travis ALT [Catalytic activity/Vol] 31 U/L Normal 16-63 [facility] Comment on above: Performed By: #### C MP #### [facility] [address] [address] [address] Pravin Travis Anion gap [Moles/Vol] 10.9 mmol/L Normal Th [facility] Comment on above: Performed By: #### C MP #### [facility] [address] [address] [address] Pravin Travis AST [Catalytic activity/Vol] 31 U/L Normal 15-37 [facility] Comment on above: Performed By: #### C MP #### [facility] [address] [place] [address] Dr. Pravin Travis Bilirubin [Mass/Vol] 0.5 mg/dL Normal 0.2-1.0 [facility] Comment on above: Performed By: #### C MP #### [facility] [address] [address] [address] Pravin Travis Calcium [Mass/Vol] 9.3 mg/dL Normal 8.5-10.1 [facility] Comment on above: Performed By: #### C MP #### [facility] [address] [place] [address] Dr. Pravin Travis Chloride [Moles/Vol] 103 mmol/L Normal 98-107 [facility] Comment on above: Performed By: #### C MP #### [facility] [address] [address] [address] Pravin Travis CO2 [Moles/Vol] 29.8 mmol/L Normal 21.0-32.0 [facility] Comment on above: Performed By: #### C MP #### [facility] [address] [address] [address] Pravin Travis Creatinine [Mass/Vol] 1.22 mg/dL Normal 0.70-1.30 [facility] Comment on above: Performed By: #### C MP #### [facility] [address] [address] [address] Pravin Travis EGFR-AF MALAYSIAN >60 Normal >=60 [facility] Comment on above: Performed By: #### C MP #### [facility] [address] [address] [address] Pravin Travis EGFR-NON AF MALAYSIAN >60 Normal >=60 [facility] Comment on above: Performed By: #### C MP #### [facility] [address] [address] [address] Pravin Travis Globulin (S) [Mass/Vol] 3.4 g/dL Normal T [facility] Comment on above: Performed By: #### C MP #### [facility] [address] [place] [address] Dr. Pravin Travis Glucose [Mass/Vol] 91 mg/dL Normal 74-106 [facility] Comment on above: Performed By: #### C MP #### [facility] [address] [place] [address] Dr. Pravin Travis Potassium [Moles/Vol] 3.7 mmol/L Normal 3.5-5.1 [facility] Comment on above: Performed By: #### C MP #### [facility] [address] [place] [address] Dr. Pravin Travis Protein [Mass/Vol] 7.7 g/dL Normal 6.4-8.2 [facility] Comment on above: Performed By: #### C MP #### [facility] [address] [place] [address] Dr. Pravin Travis Sodium [Moles/Vol] 140 mmol/L Normal 136-145 [facility] Comment on above: Performed By: #### C MP #### [facility] [address] [address] [address] Pravin Travis Urea nitrogen [Mass/Vol] 11.0 mg/dL Normal 7.0-18.0 [facility] Comment on above: Performed By: #### C MP #### [facility] [address] [address] [address] Pravin Travis Urea nitrogen/Creatinine [Mass ratio] 9.0 mg/mg Normal [facility] Comment on above: Performed By: #### C MP #### [facility] [address] [place] [address] Dr. Pravin Travis COVID Quick Testingon 2021 Result Positive [facility] Other COVID Quick Testingon 2020 Result Negative [facility] Other Quick Fluon 08-11-2021 FLUAV Ab CF (S) [Titer] Negative N [employer] Other FLUBV Ab CF (S) [Titer] Negative N [employer] Other Vital Signs Date Time Vital Sign Value Performing Clinician Facility 03-03-2024 14:00-0400 Diastolic blood pressure 95 mm[Hg] DO [facility] Work Phone: [facility] 03-03-2024 14:00-0400 Heart rate 79 /min DO [employer] Work Phone: [facility] 03-03-2024 14:00-0400 Respiratory rate 18 /min DO P[employer] Work Phone: [facility] 03-03-2024 14:00-0400 SaO2% (BldA) [Mass fraction] 95 % DO Cisco [employer] Work Phone: [facility] 03-03-2024 14:00-0400 Systolic blood pressure 147 mm[Hg] DO [employer] Work Phone: [facility] 03-03-2024 11:20-0400 Body temperature 98.2 [degF] DO [employer] Work Phone: [facility] 03-03-2024 11:18-0400 Body height 172.72 cm DO P[employer]it Work Phone: [facility] 03-03-2024 11:18-0400 Body weight 80.65 kg DO Cisco Furlong Work Phone: [facility] 02-02-2024 11:29-0400 Body temperature 98.6 [degF] Didi Orzech [facility] 02-02-2024 11:29-0400 Diastolic blood pressure 81 mm[Hg] Didi Orzech [facility] 02-02-2024 11:29-0400 Heart rate 77 /min Didi Orzech [facility] 02-02-2024 11:29-0400 Respiratory rate 16 /min Didi Orzech [facility] 02-02-2024 11:29-0400 Systolic blood pressure 136 mm[Hg] Didi Orzech [facility] 01-30-2024 01:11-0400 Heart rate 159 /min DO Cisco Furlong Work Phone: [facility] 01-30-2024 00:30-0400 Respiratory rate 22 /min DO Cisco Furlong Work Phone: [facility] 01-30-2024 00:30-0400 SaO2% (BldA) [Mass fraction] 97 % DO Cisco Furlong Work Phone: [facility] 01-29-2024 23:38-0400 Diastolic blood pressure 95 mm[Hg] DO Cisco Furlong Work Phone: [facility] 01-29-2024 23:38-0400 Systolic blood pressure 136 mm[Hg] DO Cisco Furlong Work Phone: [facility] 01-29-2024 22:45-0400 Body height 172.72 cm DO Cisco Furlong Work Phone: [facility] 01-29-2024 22:45-0400 Body weight 86.2 kg DO [employer] Work Phone: [facility] 01-29-2024 22:44-0400 Body temperature 98.3 [degF] DO [employer] Work Phone: [facility] 09-01-2021 13:30-0500 Body height 172.72 cm Tawnya Andre Other [facility] Other 09-01-2021 13:30-0500 Body mass index (BMI) [Ratio] 31.93 kg/m2 Tawnya Andre Other [facility] Other 09-01-2021 13:30-0500 Body temperature 97.4 [degF] Tawnya Andre Other [facility] Other 09-01-2021 13:30-0500 Body weight 95.26 kg Tawnya Andre Other [facility] Other 09-01-2021 13:30-0500 Respiratory rate 18 /min Tawnya Andre Other [facility] Other 09-01-2021 13:30-0500 SaO2% (BldA) [Mass fraction] 98 % Tawnya Andre Other [facility] Other 08-11-2021 12:00-0500 Body height 172.72 cm Mary King Other [facility] Other 08-11-2021 12:00-0500 Body mass index (BMI) [Ratio] 31.93 kg/m2 Mary King Other [facility] Other 08-11-2021 12:00-0500 Body temperature 96.9 [degF] Mary iKng Other [facility] Other 08-11-2021 12:00-0500 Body weight 95.26 kg Mary King Other [facility] Other 08-11-2021 12:00-0500 Respiratory rate 18 /min Mary King Other [facility] Other 08-11-2021 12:00-0500 SaO2% (BldA) [Mass fraction] 96 % Mary King Other [facility] Other Encounters Encounter Date Encounter Type Care Provider Facility Start: 04-03-2024 End: 04-03-2024 ambulatory Didi X Orzech Facility:[facility] Start: 04-03-2024 End: 04-03-2024 Patient encounter procedure Didi X Orzech [facility] Start: 03-03-2024 End: 03-03-2024 Emergency department patient visit DO Cisco Blanc Work Phone: [facility] Work Phone: Start: 02-17-2024 End: 02-18-2024 Evaluation and management of inpatient [facility] Start: 02-02-2024 End: 02-02-2024 ambulatory Didi X Orzech Facility:[facility] Start: 02-02-2024 End: 02-02-2024 Patient encounter procedure Didi X Orzech [facility] Start: 01-30-2024 ambulatory Didi Orzech Facility: [facility] Start: 01-29-2024 End: 01-30-2024 Emergency department patient visit DO Cisco Blanc Work Phone: [facility] Work Phone: Start: 12-09-2023 End: 12-09-2023 ambulatory [facility] Start: 03-26-2022 End: 03-26-[address] CISCO BLANC Facility: Start: 09-01-2021 End: 09-01-2021 ambulatory Tawnya Andre Other [facility] Other Start: 09-01-2021 Office outpatient visit 15 minutes Tawnya Andre [facility] Start: 08-11-2021 End: 08-11-2021 ambulatory Mary King Other [facility] Other Start: 08-11-2021 Office outpatient visit 15 minutes Mary King [facility] Start: 08-30-2016 End: 08-31-2016 Ambulatory GRADY WESTWO Facility:[facility] Procedures Date Procedure Procedure Detail Performing Clinician Start: 03-03-2024 Diagnostic radiograp hy of abdomen DO Cisco Blanc Work Phone: Start: 01-29-2024 CT of abdomen and pe lvis without contrast DO Cisco Blanc Work Phone: Appendectomy Didi Orzech Colonoscopy Didi Orzech Plan of Treatment Date Care Activity Detail Author Start: 01-29-2024 CT Abdomen and Pelvi s WO contrast [facility] Start: 01-29-2024 CT of abdomen and pelvis without contrast CT abdomen pelvis wo con [facility] Patient Education [facility] Work Phone: Patient referral [facility] Work Phone: Immunizations Immunization Date Immunization Notes Care Provider [facility] 06-20-2021 influenza virus vaccine, unspecified formulation Didi Orzech [facility] 06-20-2021 SARS-CoV-2 (COVID-19 ) mRNA BNT-162b2 vax Didi Orzech [facility] 12-08-2020 SARS-CoV-2 (COVID-19 ) mRNA BNT-162b2 vax Didi Orzech [facility] 11-18-2020 SARS-CoV-2 (COVID-19 ) mRNA BNT-162b3 vax Didi Orzech [facility] 04-06-2020 influenza virus vaccine, unspecified formulation Didi Orzech [facility] 06-07-2019 influenza virus vaccine, unspecified formulation Didi Orzech [facility] 10-27-2013 tetanus toxoid, redu brock diphtheria toxoid, and acellular pertussis vaccine, adsorbed Didi Orzech [facility] Payers Date Payer Category Payer Self-pay [id number] 2022 Medicaid 2022 Unknown [id number] 2.1 [id number] 2021 Unknown [id number] 2021 Unknown [id number] 2021 Medicaid [id number] 2019 Unknown [id number] 1970 Unknown [id number] 2.16.84 [id number] 1970 Unknown [id number] 2.16.8 [id number] 1970 Unknown [id number] 2.16.8 [id number] 1968 Unknown [id number] 2.16.8 [id number] 1970 Unknown [id number] 2.16.8 [id number] 1970 Unknown [id number] 2.16.8 [id number] 1961 Private Health Insurance [id number] Medicaid [id number] Unknown [id number] 2.16.8 [id number] Unknown [id number] 2.16.8 [id number] Social History Date Type Detail Facility Unknown if ever smoked [facility] Other Sex Assigned At [facility] Start: 01-29-2024 End: 03-03-2024 Tobacco smoking status NHIS Smoker (finding) [facility] Start: 1970 Sex Assigned At Male F [facility] Start: 02-02-2024 Tobacco smoking status Ex-smoker (fi nding) [facility] Tobacco smoking status Never [facility] Functional Status Date Assessment Result Facility 02-02-2024 Functional Status N/A [facility] Evaluation note 09-01-2021 Note Date & Type [...] Patient care instructions given in writting by [facility] Care At Home document. [facility] Other Evaluation note 08-11-2021 Note Date & [...] Patient care instructions given in writting by [facility] Care At Home document. [facility] Other Evaluation + Plan note Note Date & Type Note Facility Evaluation + Plan note Future Appointments Appointment Date:04/03/2024 01:00:00 PM Scheduled Provider:JOSEPH Allen APRN, Didi Martin Location:[facility] Appointment Type:URO Office Visit [facility] Evaluation note Note Date & Type Note Facility Evaluation note No assessment information availa ble [facility] [employer] Work Phone: History general Narrative - Reported Note Date & Type Note Facility History general Narrative - Reported Type Medical History insomnia Medical History anxiety Medical History HTN Surgical History appendix removed Surgical History compartment syndrome left hand 2016 Hospitalization History see surgical hx [facility] Other Hospital course Narrative Note Date & Type Note Facility Hospital course Narrative No data available for this section [facility] Hospital Discharge instructions Note Date & Type Note Facility Hospital Discharge instructions Additional Instructions Wear leg bag with Murray catheter Follow-up with urology Return if symptoms are worse [facility] [employer] Work Phone: Hospital Discharge instructions Note Date & Type Note Facility Hospital Discharge instructions No data available for this section [facility] [employer] Progress note Note Date & Type Note Facility Progress note No data available for this section [facility] Summary Purpose Family History No Family History [...] and content) DATE CREATED AUTHOR 02/14/2018 [facility] DATE CREATED AUTHOR AUTHOR'S ORGANIZ ATION 03/29/2022 [facility] DATE CREATED AUTHOR AUTHOR'S ORGANIZ ATION 12/10/2023 [facility] DATE CREATED AUTHOR AUTHOR'S ORGANIZ ATION 02/24/2024 [facility] DATE CREATED AUTHOR AUTHOR'S ORGANIZ ATION 03/19/2024 [facility] DATE CREATED AUTHOR AUTHOR'S ORGANIZ ATION 04/05/2024 [facility] REASON FOR VISIT (unrecogniz ed section and [...] BE BASED ON THE PRIMARY CLINICAL RECORDS. [employer] [facility]. provides no warranty or guarantee of the accuracy or completeness of information in this document.
--- NOTE | 2024-05-06 15:13 | CT_ITS ---
[address] [address] Patient Name: HARLAN ARNOLD MRN: [id number] date: 1970 Sex: M Assigned Patient Location: ER Current Patient Location: Accession/Order Number: [id number] Exam Date: 05/06/2024 16:38 Report Date: 05/06/2024 17:32 At the request of: RETA GRAY Procedure: CT abdomen pelvis w con EXAM: CT abdomen pelvis w con HISTORY: Nausea, right sided abdominal pain COMPARISON: 04/02/2024 TECHNIQUE: Axial CT imaging was performed through the abdomen and pelvis with intravenous contrast. Multiplanar reformats were performed. Dose reduction techniques were achieved by using automated exposure control and/or adjustment of mA and/or kV according to patient size and/or use of iterative reconstruction technique. FINDINGS: Lung bases: Lung bases are clear. No pleural effusion. GI upper: Unremarkable. Liver: Normal size and contour. Gallbladder: No significant abnormality. No cholelithiasis. Biliary system: No intra or extrahepatic biliary ductal dilatation. Spleen: Normal size. Pancreas: Unremarkable. Adrenal glands: Normal adrenal glands. Kidneys/ureters: Normal contours. No hydronephrosis. No nephrolithiasis or ureterolithiasis. Stable 2.3 cm right simple renal cysts. Vessels: No aneurysm. Lymph Nodes: No lymphadenopathy. Small bowel: No wall thickening or dilatation. Colon: No wall thickening or dilatation. Colonic diverticulosis without evidence of acute diverticulitis. Appendix: No findings of appendicitis. Peritoneal cavity: No free fluid or pneumoperitoneum. Lower : Unremarkable. Bones: No acute bony abnormality. Soft tissues: No acute finding. Additional findings: None. CT/CT abdomen pelvis w con IMPRESSION: Unremarkable CT of the abdomen and pelvis. No acute abnormality. Electronically authenticated by: ALLI THOMAS Date: 05/06/2024 17:32
--- NOTE | 2024-05-06 15:13 | XR_ITS ---
[address] [address] Patient Name: HARLAN ARNOLD MRN: [id number] date: 1970 Sex: M Assigned Patient Location: ER Current Patient Location: ER Accession/Order Number: [id number] Exam Date: 05/06/2024 15:40 Report Date: 05/06/2024 16:14 At the request of: RETA GRAY Procedure: XR chest 1V PORTABLE CHEST X-RAY. INDICATION: Shortness of breath. COMPARISON: None. TECHNIQUE: Single AP portable chest radiograph. FINDINGS: TUBES AND LINES: None. LUNGS: Lungs are clear. PLEURA: No effusions or pneumothorax. HEART AND MEDIASTINUM: Within normal limits for portable technique. OSSEOUS STRUCTURES: No acute abnormality. XR/XR chest 1V IMPRESSION: No acute findings. Electronically authenticated by: GODWIN SPAIN Date: 05/06/2024 16:14
--- NOTE | 2024-05-06 15:13 | CT_ITS ---
The [address] [address] Patient Name: HARLAN ARNOLD MRN: [id number] date: 1970 Sex: M Assigned Patient Location: ER Current Patient Location: ER Accession/Order Number: [id number] Exam Date: 05/06/2024 16:38 Report Date: 05/06/2024 17:25 At the request of: RETA GRAY Procedure: CT head/brain wo con CT head/brain wo con, 05/06/2024 4:38 PM EDT INDICATION: Dizziness COMPARISON: Prior CT of the head dated 04/02/2024 TECHNIQUE: Axial CT images of the brain from skull base to vertex, including portions of the face and sinuses, were obtained without contrast . Multiplanar reformatted images were generated and reviewed as needed. Dose reduction techniques were achieved by using automated exposure control and/or adjustment of mA and/or kV according to patient size and/or use of iterative reconstruction technique. FINDINGS: The cerebral sulci as well as ventricular system are appropriate for age. There is no intracranial mass, mass effect, midline shift, intra or extra-axial fluid collection or hemorrhage. Mild mucosal thickening within the ethmoidal cells is noted. The visualized portions of orbits, mastoid air cells as well as remainder of paranasal sinuses are unremarkable. There is no suspicious osteolytic or osteoblastic lesion. CT/CT head/brain wo con IMPRESSION: No acute intracranial process is noted. Electronically authenticated by: SHANA TILLEY Date: 05/06/2024 17:25
--- NOTE | 2024-05-06 15:13 | ECG_ITS ---
[facility] Test Date: 2024-05-06 Pat Name: HARLAN ARNOLD Department: Room: - Gender: Male [employer]: : 1970 Requested By: MELY BONILLA Order Number: [id number] Reading MD: GIANNA EDWARDS Measurements Intervals [place] Rate: 86 P: 43 OH: 158 QRS: 56 QRSD: 84 T: 73 QT: 360 QTc: 404 Interpretive Statements 1100 Sinus rhythm 4068 Nonspecific Twave abnormality 9130 borderline ECG Compared to ECG 05/04/2024 11:25:11 No significant changes Electronically Signed On 05-06-2024 17:11:07 EDT by GIANNA EDWARDS
--- NOTE | 2024-05-06 15:15 | ED.GENADUL1 ---
HPI HPI - General Adult General Chief complaint: Nausea/Vomiting/Diarrhea Stated complaint: DIZZINESS, NAUSEA, DRYMOUTH Time Seen by Provider: 05/06/24 15:06 Source: patient Mode of arrival: walk-in History of Present Illness HPI narrative: Patient is a 53-year-old male with a history of anxiety, IBS, hypertension who presents to the emergency department again for complaint of right-sided abdominal cramping and bloating. He states he takes MiraLAX daily that is prescribed to him by his PCP. He reports decreased bowel movements. He has had no fevers, chills. He was seen in this emergency department 2 days ago for the same symptoms. He states he feels dizzy and his arms are cold . He drove himself to this emergency department. No visual changes. He has no complaints of chest pain, shortness of breath, cough, congestion. He has had previous imaging of both his head and abdomen in this emergency department, this is his eighth visit to the emergency department in the last 2 months for similar symptoms. He states his PCP is not doing anything for him and he does not have a GI appointment until June. Multiple visits recently he has requested Ativan for his symptoms. Related Data Home Medications ?Medication ?Instructions ?Recorded ?Confirmed amlodipine 5 mg tablet 5 mg PO .once daily 04/02/24 05/06/24 metoprolol tartrate 25 mg tablet 25 mg PO BID 05/04/24 05/06/24 clonidine HCl 0.1 mg tablet 0.1 mg PO DAILY PRN hypertensive 05/06/24 05/06/24 emergency Previous Rx's ?Medication ?Instructions ?Recorded magnesium citrate 300 ml PO DAILY PRN constipation 05/04/24 #296 mL hyoscyamine sulfate 0.125 mg 0.125 mg PO Q6H PRN abdominal pain 05/06/24 tablet (Levsin) #12 tabs ondansetron 4 mg disintegrating 4 mg PO Q6H PRN nausea and 05/06/24 tablet vomiting #12 tabs Allergies Allergy/AdvReac Type Severity Reaction Status Date / Time No Known Drug Allergies Allergy Verified 05/04/24 11:22 Opioid HPI Opioid Management Most Recent Opioid Data: Last Pain Scale 6 05/06/24 15:11 Ur Phencyclidine Scrn Negative (NEGATIVE) 05/06/24 15:20 Review of Systems ROS Constitutional Denies: fever or chills Ears, nose, mouth, and throat Denies: throat pain or nasal congestion Cardiovascular Denies: chest pain Respiratory Denies: shortness of breath Gastrointestinal Reports: abdominal pain, nausea and bloating; Denies: vomiting, diarrhea or constipation Musculoskeletal Denies: back pain Integumentary/Breast Denies: rash Neurological Reports: dizziness; Denies: headache, numbness in extremities or weakness in extremities Hematologic/Lymphatic Denies: easy bruising or easy bleeding PFSH PFSH Social History Little interest or pleasure in doing things: nearly every day Feeling down, depressed, or hopeless: nearly every day Exam Narrative Exam Narrative: Gen.: Awake, alert, in no distress Head: Normocephalic, atraumatic ENT: Moist mucous membranes Respiratory: No respiratory distress, lungs clear bilaterally Cardio: Regular rate and rhythm Gastrointestinal: Abdomen is soft, nondistended and diffusely mildly tender to palpation of the right lower quadrant with no guarding or rebound Extremities: Moves extremities equally Psych: Normal mood and affect Neuro: No focal neuro deficit Skin: Warm, dry, intact Constitutional Vital Signs, click to edit/add: Last Vital Signs Temp 98.4 F 05/06/24 14:41 Pulse 80 05/06/24 16:30 Resp 18 05/06/24 16:30 BP 164/90 H 05/06/24 17:32 Pulse Ox 97 05/06/24 14:41 O2 Del Method Room Air 05/06/24 14:41 Course Vital Signs Vital signs: Vital Signs Temperature 98.4 F 05/06/24 14:41 Pulse Rate 96 H 05/06/24 14:41 Respiratory Rate 22 H 05/06/24 14:41 Blood Pressure 160/96 H 05/06/24 14:41 Pulse Oximetry 97 05/06/24 14:41 Oxygen Delivery Method Room Air 05/06/24 14:41 Temperature 98.4 F 05/06/24 14:41 Pulse Rate 80 05/06/24 16:30 Respiratory Rate 18 05/06/24 16:30 Blood Pressure 164/90 H 05/06/24 17:32 Pulse Oximetry 97 05/06/24 14:41 Oxygen Delivery Method Room Air 05/06/24 14:41 Medical Decision Making MDM Narrative Medical decision making narrative: At time of triage, this patient reported feelings of depression and hopelessness daily. He was adamant that he was not suicidal or homicidal but given the mental health screening at time of triage, he meets criteria for severe depression. He was agreeable to speaking with mental health counseling services. Patient was screened by mental health counseling services during his medical workup. Mental health counseling services knows this patient well, he has a history of substance abuse and apparently was crushing and snorting Xanax and Ativan in 2018, at which time he fell and broke his wrist and was unconscious for several days. He was treated for substance abuse and benzodiazepine addiction. He apparently relapsed in 2019 and was treated for this again. Laboratory studies reviewed and noted, patient with stable chronic hyponatremia and mildly elevated lactic acid. Patient with stable vital signs in the ER, treated with IV fluids, Zofran and Levsin. Based on this patient's history of benzodiazepine addiction, I do not feel it is appropriate to continue to give him Ativan. I suspect some of his symptoms may be due to anxiety or benzodiazepine withdrawal. He is hemodynamically stable in the emergency department. CT of the brain, chest x-ray, CT of the abdomen and pelvis are all within normal limits with no evidence of acute process. Abdomen is soft and benign in the ER. Patient will be given Zofran and Levsin for home. He was given a referral for mental health for follow-up. This patient was reevaluated by attending physician. He was encouraged to follow-up with a GI specialist for his IBS. Return to the emergency department if symptoms change or worsen. SHARED APC VISIT, PHYSICIAN ATTESTATION: [id number] I performed a substantive part of the MDM during the patient?s E/M visit. I personally evaluated and examined the patient. I personally made or approved the documented management plan and acknowledge its risk of complications. ? Medical Records Medical records reviewed: Yes I reviewed the patient's medical records Lab Data Lab results reviewed: Yes I reviewed the patient's lab results Labs: Lab Results 05/06/24 Range/Units 15:20 WBC 7.5 (4.0-11.0) 10^3/uL RBC 5.10 (4.70-6.10) 10^6/uL Hgb 16.1 (14.0-18.0) g/dL Hct 44.7 (42.0-54.0) % MCV 87.6 (80.0-94.0) fL MCH 31.6 (25.9-34.0) pg MCHC 36.0 H (29.9-35.2) g/dL RDW 10.9 L (11.0-15.0) % Plt Count 255 (150-450) 10^3/uL MPV 10.1 (9.5-13.5) fL Neut % (Auto) 68.0 (43.0-75.0) % Lymph % (Auto) 18.9 L (20.5-60.0) % [place] % (Auto) 8.9 (1.7-12.0) % Eos % (Auto) 3.3 (0.9-7.0) % Baso % (Auto) 0.5 (0.2-2.0) % Neut # (Auto) 5.1 (1.4-6.5) 10^3/uL Lymph # (Auto) 1.4 (1.2-3.8) 10^3/uL [place] # (Auto) 0.7 (0.3-0.8) 10^3/uL Eos # (Auto) 0.3 (0.0-0.7) 10^3/uL Baso # (Auto) 0.0 (0.0-0.1) 10^3/uL Abs Immat Gran (auto) 0.03 (0.00-0.03) 10^3/uL Imm/Tot Granulo (auto) 0.4 (0.0-0.5) % PT 10.2 (9.0-11.6) sec INR 0.96 Sodium 130 L (136-145) mmol/L Potassium 3.9 (3.5-5.1) mmol/L Chloride 93 L (98-107) mmol/L Carbon Dioxide 27.6 (21.0-32.0) mmol/L Anion Gap 13.3 BUN 15.0 (7.0-18.0) mg/dL Creatinine 0.96 (0.70-1.30) mg/dL Est GFR ( Amer) >60 (>=60) Est GFR (Non-Af Amer) >60 (>=60) BUN/Creatinine Ratio 15.6 Glucose 113 H (74-106) mg/dL Lactate 2.4 H* (0.4-2.0) mmol/L Calcium 9.3 (8.5-10.1) mg/dL Total Bilirubin 0.5 (0.2-1.0) mg/dL AST 20 (15-37) U/L ALT 33 (16-63) U/L Alkaline Phosphatase 131 H (46-116) U/L Troponin I High Sens 5.5 (4.0-76.1) pg/mL NT-Pro-B Natriuret Pep 25.0 (<=900.0) pg/mL Total Protein 7.7 (6.4-8.2) g/dL Albumin 4.2 (3.4-5.0) g/dL Globulin 3.5 g/dL Albumin/Globulin Ratio 1.2 Lipase 55.0 (16.0-77.0) U/L TSH 0.958 (0.358-3.740) uIU/mL Urine Color Lt. yellow (YELLOW) Urine Clarity Clear (CLEAR) Urine pH 7.5 (5.0-9.0) Ur Specific [place] 1.015 (1.005-1.025) Urine Protein Negative (NEG/TRACE) mg/dL Urine Glucose (UA) Negative (NEGATIVE) mg/dL Urine Ketones Negative (NEGATIVE) mg/dL Urine Occult Blood Negative (NEGATIVE) Urine Nitrite Negative (NEGATIVE) Urine Bilirubin Negative (NEGATIVE) Urine Urobilinogen 0.2 (0.2-1.0) EU/dL Ur Leukocyte Esterase Negative (NEGATIVE) Urine Opiates Screen Negative (NEGATIVE) Ur Buprenorphine Scrn Negative (NEGATIVE) Ur Oxycodone Screen Negative (NEGATIVE) Urine Methadone Screen Negative (NEGATIVE) Ur Barbiturates Screen Negative (NEGATIVE) U Tricyclic Antidepress Negative (NEGATIVE) Ur Phencyclidine Scrn Negative (NEGATIVE) Ur Amphetamines Screen Negative (NEGATIVE) U Methamphetamines Scrn Negative (NEGATIVE) U Benzodiazepines Scrn Positive A (NEGATIVE) Urine Cocaine Screen Negative (NEGATIVE) U Cannabinoids Screen Negative (NEGATIVE) Ethanol Quant <3 mg/dL Imaging Data CT scan - head: Attestation: I have reviewed the pertinent imaging results. Radiologist's impression: ITS Impressions Abdomen/Pelvis CT 05/06/24 15:13 IMPRESSION: Unremarkable CT of the abdomen and pelvis. No acute abnormality. Electronically authenticated by: ALLI THOMAS Date: 05/06/2024 17:32 Chest X-Ray 05/06/24 15:13 IMPRESSION: No acute findings. Electronically authenticated by: GODWIN SPAIN Date: 05/06/2024 16:[address] 05/06/24 15:13 IMPRESSION: No acute intracranial process is noted. Electronically authenticated by: SHANA TILLEY Date: 05/06/2024 17:25 ECG Data Attestation: I personally reviewed and interpreted this ECG as follows: (Normal sinus rhythm at a rate of 86, no acute ST elevation or ectopy. EKG reviewed by attending physician) Discharge Plan Discharge Chief Complaint: Nausea/Vomiting/Diarrhea Clinical Impression: Abdominal pain, Dizziness, Acute hyponatremia Patient Disposition: Home, Self-Care Time of Disposition Decision: 17:41 Condition: Good Prescriptions / Home Meds: New hyoscyamine sulfate [Levsin] 0.125 mg tablet 0.125 mg PO Q6H PRN (Reason: abdominal pain) Qty: 12 0RF ondansetron 4 mg tablet,disintegrating 4 mg PO Q6H PRN (Reason: nausea and vomiting) Qty: 12 0RF No Action amlodipine 5 mg tablet 5 mg PO .once daily metoprolol tartrate 25 mg tablet 25 mg PO BID magnesium citrate Solution 300 ml PO DAILY PRN (Reason: constipation) Qty: 296 0RF clonidine HCl 0.1 mg tablet 0.1 mg PO DAILY PRN (Reason: hypertensive emergency) Patient Comments: for BP 160/100 and over Print Language: Salvadorean Instructions: Acute Abdominal Pain (ED), Dizziness (ED) Referrals: MELY BONILLA [Primary Care Provider] - 1 week [facility] [Physician] - 1 week
[2024-05-06] MEDS: 0.9 % SODIUM CHLORIDE 1,000 ML 999 ML IV (15:26)
[2024-05-06] MEDS: HYOSCYAMINE SULFATE 0.125 MG TAB.SUBL SL (15:26)
[2024-05-06] MEDS: ONDANSETRON PF 4 MG/2 ML VIAL IV (15:26)
[2024-05-06 15:32] LABS: Basophils Percent Auto 0.5 % (0.2-2.0); Eosinophils Absolute Auto 0.3 10^3/uL (0.0-0.7); Eosinophils Percent Auto 3.3 % (0.9-7.0); Hematocrit 44.7 % (42.0-54.0); Hemoglobin 16.1 g/dL (14.0-18.0); Immature Granulocytes Abs Auto 0.03 10^3/uL (0.00-0.03); Immature Granulocytes Pct Auto 0.4 % (0.0-0.5); Lymphocytes Absolute Auto 1.4 10^3/uL (1.2-3.8); Lymphocytes Percent Auto 18.9 % (20.5-60.0); Mean Corpuscular Hemoglobin 31.6 pg (25.9-34.0); Mean Corpuscular Volume 87.6 fL (80.0-94.0); Mean Platelet Volume 10.1 fL (9.5-13.5); Monocytes Absolute Auto 0.7 10^3/uL (0.3-0.8); Monocytes Percent Auto 8.9 % (1.7-12.0); Neutrophils Absolute Auto 5.1 10^3/uL (1.4-6.5); Platelet Count 255 10^3/uL (150-450); Red Cell Distribution Width 10.9 % (11.0-15.0); White Blood Count 7.5 10^3/uL (4.0-11.0)
[2024-05-06 15:34] LABS: Bilirubin Urine NEGATIVE (NEGATIVE); Blood Urine NEGATIVE (NEGATIVE); Clarity Urine CLEAR (CLEAR); Color Urine LT. YELLOW (YELLOW); Glucose Urine UA NEGATIVE (NEGATIVE); Ketones Urine NEGATIVE (NEGATIVE); Leukocyte Esterase Urine NEGATIVE (NEGATIVE); Nitrite Urine NEGATIVE (NEGATIVE); Protein Urine NEGATIVE (NEG/TRACE); Specific Gravity Urine 1.015 (1.005-1.025); Urobilinogen Urine 0.2 EU/dL (0.2-1.0); pH Urine 7.5 (5.0-9.0)
[2024-05-06 15:39] LABS: Urine Microscopic Indicated NO
[2024-05-06 15:42] LABS: INR 0.96; Prothrombin Time 10.2 sec (9.0-11.6)
[2024-05-06 15:43] LABS: Amphetamine Screen Urine NEGATIVE (NEGATIVE); Barbiturates Screen Urine NEGATIVE (NEGATIVE); Benzodiazepines Screen Urine POSITIVE (NEGATIVE); Buprenorphine Screen Urine NEGATIVE (NEGATIVE); Cannabinoid Screen Urine NEGATIVE (NEGATIVE); Cocaine Screen Urine NEGATIVE (NEGATIVE); Methadone Screen Urine NEGATIVE (NEGATIVE); Methamphetamines Screen Urine NEGATIVE (NEGATIVE); Opiate Screen Urine NEGATIVE (NEGATIVE); Oxycodone Screen Urine NEGATIVE (NEGATIVE); Phencyclidine Screen Urine NEGATIVE (NEGATIVE); Tricyclic Antidepressant Urine NEGATIVE (NEGATIVE)
[2024-05-06 15:52] LABS: Alanine Aminotransferase 33 U/L (16-63); Albumin Globulin Ratio 1.2; Albumin Level 4.2 g/dL (3.4-5.0); Alkaline Phosphatase 131 U/L (46-116); Anion Gap 13.3; Aspartate Amino Transferase 20 U/L (15-37); BUN Creatinine Ratio 15.6; Bilirubin Total 0.5 mg/dL (0.2-1.0); Calcium 9.3 mg/dL (8.5-10.1); Carbon Dioxide 27.6 mmol/L (21.0-32.0); Chloride 93 mmol/L (98-107); Estimated GFR (African America >60 (>=60); Estimated GFR (Non-African Ame >60 (>=60); Ethanol <3 mg/dL; Globulin 3.5 g/dL; Glucose 113 mg/dL (74-106); Potassium 3.9 mmol/L (3.5-5.1); Sodium 130 mmol/L (136-145); Thyroid Stimulating Hormone 0.958 uIU/mL (0.358-3.740); Total Protein 7.7 g/dL (6.4-8.2); Troponin I High Sensitivity 5.5 pg/mL (4.0-76.1)
--- NOTE | 2024-05-06 15:52 | PC.NURSE ---
Update received from Preeti from [facility]. Patient denies further needs for mental health. Preeti states patient has a history from 2018 and 2020 with substance abuse of Xanax, Ativan and alcohol. Preeti states in 2019 patient was crushing and snorting Xanax and Ativan. Patient then fell, broke wrist and was unconscious for several days in 2019. Preeti states last record for rehab from Xanax, Ativan and alcohol was in 2020. Patient denies suicidal ideations at this time.
[2024-05-06 15:53] LABS: Lactate/Lactic Acid 2.4 mmol/L (0.4-2.0)
== END 2024-05-06 18:00 | disposition home or self-care (01) ==
PROVIDERS: Physician Assistant; Emergency Provider Emergency Medicine Emergency Medical Services; PCP Family Medicine
DX: E87.1 Hypo-osmolality and hyponatremia (principal); R10.9 Unspecified abdominal pain; R42 Dizziness and giddiness; F41.9 Anxiety disorder, unspecified; K58.9 Irritable bowel syndrome, unspecified; I10 Essential (primary) hypertension
CPT/HCPCS: 36415; 70450; 71045; 74177; 80053; 80307; 80320; 81003; 83605; 83690; 83880; 84443; 84484; 85025; 85610; 93005; 99285; J2405; Q9967

== ENCOUNTER 2024-09-05 15:20 | Emergency (ER) | payer OTHER, SELFPAY ==
[2024-09-05 15:28] VITALS: BP 161/117; PULSE 105; TEMP 37.2; O2SAT 97; BMI 26.6
--- NOTE | 2024-09-05 15:38 | ED_ITS ---
HPI - Abdominal Pain General Chief Complaint: Abdominal Pain Stated Complaint: STOMACH CRAMPS Time Seen by Provider: 09/05/24 15:22 Source: patient Mode of arrival: walk-in Limitations: no limitations History of Present Illness HPI narrative: Patient is a 54-year-old male who presents to the emergency department for abdominal pain that he describes as cramping and bloating. This patient has been seen in this emergency department multiple times in the past for abdominal cramping, dizziness and anxiety. He states that he had a GI appointment last month but he was so sick that he did not leave the house and go to the appointment so it was rescheduled for next month. He states he is having difficulty leaving his house because he is having issues with his bowel movements and he is afraid to defecate on himself. He has been previously diagnosed with IBS. His primary care provider has him chronically on MiraLAX. He has had no objective fevers, vomiting or new symptoms today. He states he is tired of dealing with this. Past medical history includes long-term dependence on benzodiazepines, he states he was taken off of these medications by his primary care provider several years ago which seem to prompt the majority of his symptoms. He states when the abdominal pain becomes more severe he has dizziness and weakness, he has been seen in this emergency department previously for all of the symptoms with negative CT imaging of the head, abdomen, negative x-rays of the chest and abdomen. He has had multiple unremarkable workups previously. He states he had a colonoscopy about 6 months ago which showed dilated blood vessels in the anus which he believes is contributing to his symptoms. Patient states [facility] has worked for his symptoms in the past, he admits to buying benzodiazepines online because his primary care provider and other emergency department providers will not prescribe it for him. Related Data Previous Rx's ?Medication ?Instructions ?Recorded ondansetron 4 mg disintegrating 4 mg PO Q6H PRN nausea and 05/06/24 tablet vomiting #12 tabs dicyclomine 20 mg tablet 20 mg PO QID PRN abdominal pain 09/05/24 #12 tabs Allergies Allergy/AdvReac Type Severity Reaction Status Date / Time No Known Drug Allergies Allergy Verified 09/05/24 15:33 Review of Systems ROS Constitutional Denies: fever or chills Cardiovascular Denies: chest pain Respiratory Denies: shortness of breath or cough Gastrointestinal Reports: abdominal pain, diarrhea and constipation; Denies: nausea or vomiting Musculoskeletal Denies: back pain Integumentary/Breast Denies: rash Neurological Denies: numbness in extremities or weakness in extremities Hematologic/Lymphatic Denies: easy bruising or easy bleeding PFSH PFSH Social History Little interest or pleasure in doing things: not at all Feeling down, depressed, or hopeless: not at all Exam Narrative Exam Narrative: Gen.: Awake, alert, in no distress Head: Normocephalic, atraumatic ENT: Moist mucous membranes Respiratory: No respiratory distress, lungs clear bilaterally Cardio: Regular rate and rhythm Gastrointestinal: Abdomen is soft, nondistended and nontender to palpation Extremities: Moves extremities equally Psych: Normal mood and affect Neuro: No focal neuro deficit Skin: Warm, dry, intact Constitutional Vital Signs, click to edit/add: Last Vital Signs Temp 98.9 F 09/05/24 15:28 Pulse 105 H 09/05/24 15:28 Resp 18 09/05/24 15:28 BP 161/117 H 09/05/24 15:28 Pulse Ox 97 09/05/24 15:28 O2 Del Method Room Air 09/05/24 15:28 Course Vital Signs Vital signs: Vital Signs Temperature 98.9 F 09/05/24 15:28 Pulse Rate 105 H 09/05/24 15:28 Respiratory Rate 18 09/05/24 15:28 Blood Pressure 161/117 H 09/05/24 15:28 Pulse Oximetry 97 09/05/24 15:28 Oxygen Delivery Method Room Air 09/05/24 15:28 Temperature 98.9 F 09/05/24 15:28 Pulse Rate 105 H 09/05/24 15:28 Respiratory Rate 18 09/05/24 15:28 Blood Pressure 161/117 H 09/05/24 15:28 Pulse Oximetry 97 09/05/24 15:28 Oxygen Delivery Method Room Air 09/05/24 15:28 MDM - Abdominal Pain MDM Narrative Medical decision making narrative: Abdomen is soft and benign in the ER with stable vital signs. CT shows the patient has questionable periumbilical stranding of nonspecific importance, there is no evidence of abdominal wall cellulitis on exam. Laboratory studies are reviewed and noted, no evidence of acute process. Patient was reevaluated by attending physician. Patient ruminates about his history of benzodiazepine use and states multiple times that he needs medication for his tenesmus and aerophasia. At this time I do not feel benzodiazepines are indicated for this patient, it was stressed by me, nursing staff and by attending physician that this patient needs to be reevaluated with his GI doctor and keep his appointment. Return to the ER if symptoms change or worsen. SHARED APC VISIT, PHYSICIAN ATTESTATION: [id number] I performed a substantive part of the MDM during the patient?s E/M visit. I personally evaluated and examined the patient. I personally made or approved the documented management plan and acknowledge its risk of complications. Medical Records Attestation: I reviewed the patient's medical records. Lab Data Attestation: I reviewed the patient's lab results. Labs: Lab Results 09/05/24 09/05/24 Range/Units 15:40 16:03 WBC 8.0 (4.0-11.0) 10^3/uL RBC 5.63 (4.70-6.10) 10^6/uL Hgb 18.0 (14.0-18.0) g/dL Hct 51.6 (42.0-54.0) % MCV 91.7 (80.0-94.0) fL MCH 32.0 (25.9-34.0) pg MCHC 34.9 (29.9-35.2) g/dL RDW 12.6 (11.0-15.0) % Plt Count 324 (150-450) 10^3/uL MPV 9.8 (9.5-13.5) fL Neut % (Auto) 61.1 (43.0-75.0) % Lymph % (Auto) 22.0 (20.5-60.0) % [place] % (Auto) 8.0 (1.7-12.0) % Eos % (Auto) 8.0 H (0.9-7.0) % Baso % (Auto) 0.6 (0.2-2.0) % Neut # (Auto) 4.9 (1.4-6.5) 10^3/uL Lymph # (Auto) 1.8 (1.2-3.8) 10^3/uL [place] # (Auto) 0.6 (0.3-0.8) 10^3/uL Eos # (Auto) 0.6 (0.0-0.7) 10^3/uL Baso # (Auto) 0.1 (0.0-0.1) 10^3/uL Abs Immat Gran (auto) 0.02 (0.00-0.03) 10^3/uL Imm/Tot Granulo (auto) 0.3 (0.0-0.5) % Sodium 137 (136-145) mmol/L Potassium 3.7 (3.5-5.1) mmol/L Chloride 95 L (98-107) mmol/L Carbon Dioxide 33.1 H (21.0-32.0) mmol/L Anion Gap 12.6 BUN 4.0 L (7.0-18.0) mg/dL Creatinine 1.08 (0.70-1.30) mg/dL Est GFR ( Amer) >60 (>=60 mL/min/1.73m^2) Est GFR (Non-Af Amer) >60 (>=60 mL/min/1.73m^2) BUN/Creatinine Ratio 3.7 Glucose 104 (74-106) mg/dL Lactate 1.4 (0.4-2.0) mmol/L Calcium 10.1 (8.5-10.1) mg/dL Total Bilirubin 0.5 (0.2-1.0) mg/dL AST 30 (15-37) U/L ALT 33 (16-63) U/L Alkaline Phosphatase 185 H (46-116) U/L Total Protein 8.5 H (6.4-8.2) g/dL Albumin 4.4 (3.4-5.0) g/dL Globulin 4.1 g/dL Albumin/Globulin Ratio 1.1 Lipase 35.0 (16.0-77.0) U/L Urine Color Lt. yellow (YELLOW) Urine Clarity Clear (CLEAR) Urine pH 6.5 (5.0-9.0) Ur Specific [place] <=1.005 A (1.005-1.025) Urine Protein Negative (NEG/TRACE) mg/dL Urine Glucose (UA) Negative (NEGATIVE) mg/dL Urine Ketones Negative (NEGATIVE) mg/dL Urine Occult Blood Negative (NEGATIVE) Urine Nitrite Negative (NEGATIVE) Urine Bilirubin Negative (NEGATIVE) Urine Urobilinogen 0.2 (0.2-1.0) EU/dL Ur Leukocyte Esterase Negative (NEGATIVE) Imaging Data CT scan - abdomen: Attestation: I have reviewed the pertinent imaging results. Radiologist's impression: ITS Impressions Abdomen/Pelvis CT 09/05/24 16:18 IMPRESSION: 1. No bowel obstruction. 2. Periumbilical subcutaneous stranding, which is nonspecific and may represent localized cellulitis. No abscess. 3. Stable small umbilical hernia containing fat. Electronically authenticated by: GODWIN SPAIN Date: 09/05/2024 16:41 Discharge Plan Discharge Chief Complaint: Abdominal Pain Clinical Impression: Abdominal pain Patient Disposition: Home, Self-Care Time of Disposition Decision: 17:03 Condition: Good Prescriptions / Home Meds: New dicyclomine 20 mg tablet 20 mg PO QID PRN (Reason: abdominal pain) Qty: 12 0RF No Action ondansetron 4 mg tablet,disintegrating 4 mg PO Q6H PRN (Reason: nausea and vomiting) Qty: 12 0RF Print Language: Slovenian Instructions: Acute Abdominal Pain (ED) Referrals: JAGJIT SHELTON [Physician] - As soon as possible MELY BONILLA [Primary Care Provider] - 1 week
[2024-09-05 15:52] LABS: Basophils Absolute Auto 0.1 10^3/uL (0.0-0.1); Basophils Percent Auto 0.6 % (0.2-2.0); Bilirubin Urine NEGATIVE (NEGATIVE); Blood Urine NEGATIVE (NEGATIVE); Clarity Urine CLEAR (CLEAR); Color Urine LT. YELLOW (YELLOW); Eosinophils Absolute Auto 0.6 10^3/uL (0.0-0.7); Glucose Urine UA NEGATIVE (NEGATIVE); Hematocrit 51.6 % (42.0-54.0); Immature Granulocytes Abs Auto 0.02 10^3/uL (0.00-0.03); Immature Granulocytes Pct Auto 0.3 % (0.0-0.5); Ketones Urine NEGATIVE (NEGATIVE); Leukocyte Esterase Urine NEGATIVE (NEGATIVE); Lymphocytes Absolute Auto 1.8 10^3/uL (1.2-3.8); Mean Corpuscular HGB Conc 34.9 g/dL (29.9-35.2); Mean Corpuscular Volume 91.7 fL (80.0-94.0); Mean Platelet Volume 9.8 fL (9.5-13.5); Monocytes Absolute Auto 0.6 10^3/uL (0.3-0.8); Neutrophils Absolute Auto 4.9 10^3/uL (1.4-6.5); Neutrophils Percent Auto 61.1 % (43.0-75.0); Nitrite Urine NEGATIVE (NEGATIVE); Platelet Count 324 10^3/uL (150-450); Protein Urine NEGATIVE (NEG/TRACE); Red Blood Count 5.63 10^6/uL (4.70-6.10); Red Cell Distribution Width 12.6 % (11.0-15.0); Specific Gravity Urine <=1.005 (1.005-1.025); Urobilinogen Urine 0.2 EU/dL (0.2-1.0); pH Urine 6.5 (5.0-9.0)
[2024-09-05 15:53] LABS: Urine Microscopic Indicated NO
[2024-09-05] MEDS: HYOSCYAMINE SULFATE 0.125 MG TAB.SUBL SL (16:05)
[2024-09-05] MEDS: KETOROLAC TROMETHAMINE 30 MG/ML VIAL IVP (16:05)
[2024-09-05 16:06] LABS: Alanine Aminotransferase 33 U/L (16-63); Albumin Globulin Ratio 1.1; Albumin Level 4.4 g/dL (3.4-5.0); Alkaline Phosphatase 185 U/L (46-116); Anion Gap 12.6; Aspartate Amino Transferase 30 U/L (15-37); BUN Creatinine Ratio 3.7; Bilirubin Total 0.5 mg/dL (0.2-1.0); Calcium 10.1 mg/dL (8.5-10.1); Carbon Dioxide 33.1 mmol/L (21.0-32.0); Chloride 95 mmol/L (98-107); Estimated GFR (African America >60 (>=60 mL/min/1.73m^2); Estimated GFR (Non-African Ame >60 (>=60 mL/min/1.73m^2); Globulin 4.1 g/dL; Glucose 104 mg/dL (74-106); Potassium 3.7 mmol/L (3.5-5.1); Sodium 137 mmol/L (136-145); Total Protein 8.5 g/dL (6.4-8.2)
--- NOTE | 2024-09-05 16:18 | CT_ITS ---
[address] [address] Patient Name: HARLAN ARNOLD MRN: [id number] date: 1970 Sex: M Assigned Patient Location: ER Current Patient Location: ER Accession/Order Number: [id number] Exam Date: 09/05/2024 16:05 Report Date: 09/05/2024 16:41 At the request of: RETA GRAY Procedure: CT abdomen pelvis w con CT ABDOMEN/PELVIS WITH IV CONTRAST. INDICATION: abdominal pain, bloating. COMPARISON: 05/06/2024 TECHNIQUE: Contiguous axial images were obtained from the lung bases to the pelvic floor following the intravenous administration of contrast. Coronal and sagittal reformations are provided. FINDINGS: LOWER LUNGS: Clear. LIVER/BILIARY TREE: No mass. No intrahepatic ductal dilatation. GALLBLADDER: No significant gallbladder wall thickening. No radiopaque stone. CBD: Normal CBD. SPLEEN: Normal in size. PANCREAS: No acute findings. No peripancreatic fluid or inflammation. No pancreatic duct dilatation. No discrete mass. ADRENALS: Normal. KIDNEYS: Stable 2.3 cm right renal cyst. No hydronephrosis. No radiopaque calculus. STOMACH AND BOWEL: Stomach is unremarkable. No dilated bowel loops. No bowel wall thickening. Colonic diverticulosis without acute diverticulitis. APPENDIX: Not visualized. PERITONEAL CAVITY: No fluid. No fat stranding. ABDOMINAL WALL: There is mild periumbilical subcutaneous stranding. No measurable fluid collection. Stable small umbilical hernia containing fat. LYMPH NODES: No mesenteric or retroperitoneal lymphadenopathy by CT criteria. ABDOMINAL AORTA: No aneurysm. PELVIS: No acute abnormality. MUSCULOSKELETAL: No acute osseous abnormality. CT/CT abdomen pelvis w con IMPRESSION: 1. No bowel obstruction. 2. Periumbilical subcutaneous stranding, which is nonspecific and may represent localized cellulitis. No abscess. 3. Stable small umbilical hernia containing fat. Electronically authenticated by: GODWIN SPAIN Date: 09/05/2024 16:41
[2024-09-05 16:28] LABS: Lactate/Lactic Acid 1.4 mmol/L (0.4-2.0)
== END 2024-09-05 17:07 | disposition home or self-care (01) ==
PROVIDERS: Physician Assistant; Emergency Provider Emergency Medicine; PCP Family Medicine
DX: R10.9 Unspecified abdominal pain (principal); K58.9 Irritable bowel syndrome, unspecified
CPT/HCPCS: 36415; 74177; 80053; 81003; 83605; 83690; 85025; 96374; 99285; J1885; Q9967

== ENCOUNTER 2025-02-02 05:34 | Emergency (ER) | payer OTHER, SELFPAY ==
--- OUTSIDE RECORDS SUMMARY | 2024-03-07 20:00 | XMS_ITS | Continuity of Care Document ---
Author Organization [facility] Address [address] [place] [phone] Phone Care Team Providers Care Disintegrator Feeder Name Role Phone Diamond Savage Unavailable Unavailable Allergies, Adverse Reactions, Alerts Substance Reaction Status Criticality No Known Allergies Active No Inform ation Procedures Procedure Date Acute Detox Bridge Maintenance Worker ROUTINE VENIPUNCTURE DRUG TEST PRSMV DIR OPT OBS Acute Detox Bridge Maintenance Worker Acute Detox Bridge Maintenance Worker Intraoral-complete Series (bw) Oral Hygiene Instruction Assessment Of A Patient Acute Detox Bridge Maintenance Worker Acute Detox Bridge Maintenance Worker DRUG TEST PRSMV DIR OPT OBS Acute Detox Bridge Maintenance Worker Acute Detox Bridge Maintenance Worker Acute Detox Bridge Maintenance Worker ROUTINE VENIPUNCTURE DRUG TEST PRSMV DIR OPT OBS Acute Detox Bridge Maintenance Worker Advance Directives Directive Yes / No Effective Date File Name No Information Encounters Encounter Description Practice Location Reason(s) For Visit Diagnoses Date Provider Providers Copied on Encounter [facility], [address] [place] [address], [id number] , tel:+ [phone] [facility] No Information Hussein Fields. [address] [place] [address], [id number] , [place]. tel:[phone] [facility], [address], [place], [id number] , [place] tel: [phone] [facility] No Information [address] Kl[address] Diamond. [address], [place], [id number] , [place]. tel: [phone] [facility], [address], [place], [id number] , [place] tel: [phone] [facility] No Information [address]. [address], [place], [id number] , [place]. tel: [phone] [facility], [address], [place], [id number] , [place] tel: [phone] [facility] Dental New (chief complaint) [facility] [address] Thomas Venegas. [address] [place], [place], [id number] , [place]. tel: [phone] [facility], [address], [place], [id number] , [place] tel: [phone] [facility] No Information [address]. [address], [place], [id number] , [place]. tel: [phone] [facility], [address], [place], [id number] , [place] tel: [phone] [facility] No Information [address]. [address], [place], [id number] , [place]. tel: [phone] [facility], [address], [place], [id number] , [place] tel: [phone] [facility] No Information [address]. [address], [place], [id number] , [place]. tel: [phone] [facility], [address], [place], [id number] , [place] tel: [phone] [facility] No Information 0- 4 Kl[address] Diamond. [address], [place], [id number] , [place]. tel: [phone] [facility], [address], [place], [id number] , [place] tel: [phone] [facility] No Information 9 [address], [place], [id number] , [place]. tel: [phone] [facility], [address] [place] [address], [id number] , [place] tel: [phone] [facility] No Information 8 [address]. [address], [place], [id number] , [place]. tel: [phone] Family History Family Member Type Diagnosis Age At Onset No Information Payers Payer name Insurance type Covered constitution party ID Zahraamira baileydenice(s) Medicaid Primary [id number] Social History Type Description Quantity Date Captured Comments Sex Male Smoking Status No Information Sexual Orientation Straight or heterosexual Jan Gender Identity Male Chief Complaint And Reason For Visit No Information Reason For Referral Reason For Referral No Information Plan Of Treatment Date Type Action Status Goal Lipid panel. Due on due Goal PRAPARE ASSESSMENT. Due on due Goal Zoster vaccine (1st). Due on due Goal Depression screening. Due on due Goal CT-Colonography. Due on due Goal Influenza vaccine. Due on due Goal FIT. Due on due Goal Colonoscopy. Due on due Goal Unhealthy drug use screening . Due on due Goal Tdap Vaccine. Due on 2023 due Goal Tdap. Due on due Goal Hepatitis C screening. Due o n due Goal FIT-DNA. Due on due Goal FOBT. Due on due Goal Hep A. Due on du e Referral Ordered: Utilities Offices (related to Inadequate housing utilities) ordered Referral Ordered: Utilities Offices (related to Inadequate housing utilities) ordered History Of Present Illness Encounter Date Complaint History Of Prese nt Illness Dental New Dental New Functional Status Date Functional Assessmen t No Information Instructions Date Instruction Additional Infor mation No Information Assessments Type Assessment Date No Information Patient Care Teams Name Effective Dates (start - stop) Status Members No Information
--- OUTSIDE RECORDS SUMMARY | 2024-06-20 06:00 | XMS_ITS ---
Author Organization [facility] vices Address [address], [place] [id number] Care Team Providers Care Die Maintenance Technician Name Role Phone PamwillBrooke tomas Primary Care Provider REASON FOR VISIT 1 month f/u Medications Medication SIG (Take, Route, Frequency, Duration) Notes Start Date End Date Status hydrOXYzine Pamoate 50 MG 1 capsule as needed Orally twice daily As needed for panic 05/17/2024 Active busPIRone HCl 15 MG 1 tablet Orally Twice a day Take upon awakening and at 5-6 pm 05/17/2024 Active Metoprolol Tartrate 25 MG 1 tablet with food Oral Twice a day for 30 days Active amLODIPine Besylate 5 MG 1 tablet Oral O nce a day for 30 days Active Gummies 0.18-25 MG as directed Orally Active Sertraline HCl 50 MG 1 tablet Orally morning 05/17 Active Social History Sex Assigned At : Social History Observation Description Sex Assigned At Male Encounters Encounter Location Date Provider Diagnosis Main [address] [place] [id number] 06/20/2024 Brooke Castellano Severe anxiety F41.9 ; Agoraphobia with panic attacks F40.01 ; Moderate major depression F32.1 and H/O: drug dependency F19.21 Assessments Encounter Date Diagnosis (ICD Code) Assessment Notes Treatment Notes Treatment Clinical Notes Section Notes 06/20/2024 Severe anxiety (ICD-10 - F41.9) 06/20/2024 Agoraphobia with panic attacks (ICD-10 - F40.01) 06/20/2024 Moderate major depression (ICD-10 - F32.1) 06/20/2024 H/O: drug dependency (ICD-10 - F19.21) Plan Of Treatment Medication Medication Name Sig Start Date Stop Date Notes hydrOXYzine Pamoate 50 MG 1 capsule as n eeded Orally twice daily 05/17/2024 busPIRone HCl 15 MG 1 tablet Orally Twice a day 05/17/2024 Gummies 0.18-25 MG as directed Orally 05/17/2024 Sertraline HCl 50 MG 1 tablet Orally morning 05/17/2024 Progress Notes * Chai ARNOLDDOB:1970 ( 54 yo M)Acc No.[id number]:06/20/2024 Patient: Mary IZZY Chai Provider: ANGELIQUE Mae :1970 A ge:53 Y S ex:Male Date:06/20/2024 Address:[address] [id number] Subjective: * Chief Complaints: * 1 . 1 month f/u. * Medical History: * Medications: T aking amLODIPine Besylate 5 MG Tablet 1 tablet Oral Once a day , Taking Metoprolol Tartrate 25 MG Tablet 1 tablet with food Oral Twice a day , Taking Sertraline HCl 50 MG Tablet 1 tablet Orally morning , Taking busPIRone HCl 15 MG Tablet 1 tablet Orally Twice a day Take upon awakening and at 5-6 pm, Taking hydrOXYzine Pamoate 50 MG Capsule 1 capsule as needed Orally twice daily As needed for panic, Taking Gummies 0.18-25 MG Tablet Chewable as directed Orally Objective: * Vitals: Assessment: * Assessment: 1. S evere anxiety - F41.9 (Primary) 2 . A goraphobia with panic attacks - F40.01 3 . M oderate major depression - F32.1 4 . H /O: drug dependency - F19.21 Plan: * Treatment: 2. M oderate major depression Continue Sertraline HCl Tablet, 50 MG, 1 tablet, Orally, morning. 3. O thers Continue Gummies Tablet Chewable, 0.18-25 MG, as directed, Orally. Care Plan: * Problems: * Billing Information: * Visit Code: * Procedure Codes: Care Plan Details* * Electronic signature of ANGELIQUE Bruner on 02/02/2025 at 05:40 AM EDT Sign off status: Pending * Provider: ANGELIQUE Mae Date: Generated for Jose cao/Ирина/Larissa on: 0 02/02/2025 05:40 AM EDT
--- OUTSIDE RECORDS SUMMARY | 2025-02-02 05:40 | XMS_ITS | Clinical Summary ---
Author Organization [facility] Address [address] [place] [address] Care Team Providers Care Care Tech Name Role Phone Tyson Fonseca MD Primary Care Provider + Allergies No known active allergies Medications tamoxifen (NOLVADEX) 10 MG tablet Take 10 mg by mouth daily Active testosterone cypionate (DEPOTESTOTERONE CYPIONATE) 100 MG/ML injection Inject 100 mg into the muscle twice a week Active Social History Tobacco Use Types Packs/Day Years Used Date Smoking Tobacco: Every Day Cigarettes Alcohol Use Standard Drinks/Week Comments No 0 (1 standard drink = 0.6 oz pur e alcohol) Sex and Gender Information Value Date Recorded Sex Assigned at Not on file Legal Sex Male 11:50 AM EST Gender Identity Not on file Sexual Orientation Not on file Last Filed Vital Signs Vital Sign Reading Time Taken Comments Blood Pressure 153/90 07/09/2016 2:16 PM EST Pulse 77 07/09/2016 2:16 PM EST Temperature 36.5 C (97.7 F) 07/09/2016 11:57 AM EST Respiratory Rate 18 07/09/2016 2:01 PM EST Oxygen Saturation 98% 07/09/2016 2:01 PM EST Inhaled Oxygen Concentration - - Weight 77.1 kg (170 lb) 07/09/2016 11:57 AM EST Height - - Body Mass Index - - Plan of Treatment Not on file Care Teams Care Tech Relationship Specialty Start Date End Date Tyson Fonseca MD PCP - General 07/09/16
--- OUTSIDE RECORDS SUMMARY | 2025-02-02 05:40 | XMS_ITS | Encounter Summary ---
Author Organization [facility] Address [id number] [place] [address] Care Team Providers Care Special Projects Manager Name Role Phone Cisco Blanc Primary Care Provider Encounter Details Date Type Department Care Team (Late st Contact Info) Description 03/11/2023 Orders Only [facility] Internal [facility] - Family Medicine [address] [place] [id number] External, Scanning Provider Social History Tobacco Use Types Packs/Day Years Used Date Smoking Tobacco: Former Cigarettes 1 34 1 09/23/1984 - 12/20/2018 Passive Smoke Exposure: Past Smokeless Tobacco: Never Comments:vape, today Alcohol Use Standard Drinks/Week Comments Yes 0 (1 standard drink = 0.6 oz pur e alcohol) Occasional Social Connection and Isolation Panel [NHANES] A nswer Date Recorded In a typical week, how many times do you talk on the phone with family, friends, or neighbors? Twice a week 08/01/2022 How often do you get together with friends or re latives? Once a week 08/01/2022 How often do you attend hoahaoism or mormonism serv ices? Never 08/01/2022 Active Member of Clubs or Organizations Not on f ile 08/01/2022 How often do you attend meet ings of the clubs or organizations you belong to? Never 08/01/2022 Are you , , di vorced, , never , or living with a partner? Never 08/01/2022 AUDIT-C Answer Date Recorded Q1: How often do you have a drink containing alc ohol? Monthly or less 08/01/2022 Q2: How many drinks containi ng alcohol do you have on a typical day when you are drinking? 10 or more 08/01/2022 Q3: How often do you have si x or more drinks on one occasion? Less than monthly 08/01/2022 Overall Financial Resource Strain (CARDIA) Answe r Date Recorded How hard is it for you to pa y for the very basics like food, housing, medical care, and heating? Not hard at all 08/01/2022 PHQ-2 Answer Date Recorded Total Score 0 02/17/2023 [facility] Occupat ional Health - Occupational Stress Questionnaire Answer Date Recorded Do you feel stress - tense, restless, nervous, or anxious, or unable to sleep at night because your mind is troubled all the time - these days? Very much 08/01/2022 Exercise Vital Sign Answer Date Recorde d On average, how many days pe r week do you engage in moderate to strenuous exercise (like a brisk walk)? 2 days 08/01/2022 On average, how many minutes do you engage in exercise at this level? 20 min 08/01/2022 PRAPARE - Transportation Answer Date Re corded In the past 12 months, has l ack of transportation kept you from medical appointments or from getting medications? No 07/22 In the past 12 months, has l ack of transportation kept you from meetings, work, or from getting things needed for daily living? No 08/01/2022 Childcare Answer Date Recorded Do problems getting child ca re make 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 you to work or study? No 08/01/2022 Employment Answer Date Recorded Do you need help finding a [facility] and/or a training program? No 08/01/2022 Hunger Screening Answer Date Recorded Within the past 12 months we worried whether our food would run out before we got money to buy more. Never True 02/17/2023 Within the past 12 months th e food we bought just didn't last and we didn't have money to get more. Never True 02/17/2023 Purpose - Life Answer Date Recorded I have a purpose and direction in my life. Agree 08/01/2022 Education Answer Date Recorded What is the highest level of school you have completed or the highest degree you have received? GED or equivalent 06/2022 Sex and Gender Information Value Date Recorded Sex Assigned at Not on file Legal Sex Male 11:30 AM EDT Gender Identity Not on file Sexual Orientation Not on file documented as of this encounter Plan of Treatment Not on file documented as of this encounter Goals Goal Patient Goal Type Associated Problems Recent Progress Patient-Stated? Author home with self care General Yes Jenny Noonan, RN Note: Evaluation of progress towards goal: with support from friends and family, patient needs to fllow up with [facility] [place] documented as of this encounter Procedures Procedure Name Priority Date/Time Associated Diagnosis Comments XR FOOT RT MIN 3 VWS Routine 03/11/2023 11:40 AM EDT documented in this encounter Results * X-ray foot right minimum 3 views (03/11/2023 11:40 AM EDT) Anatomical Region Laterality Modality Lower Extremities, MSK, Foot Right Com puted Radiography us Scanning Provider External IMG DIAGNOSTIC IMAGIN G ORDERABLES Final Result documented in this encounter Visit Diagnoses Not on filedocumented in this encounter Additional Health Concerns Assessment Noted Time PHQ-9 Depression Total Score: 0 02/18/20 23 3:23 PM EDT documented as of this encounter Care Teams Special Projects Manager Relationship Specialty Start Date End Date Cisco Blanc DO [address] [facility], [place] [address] PCP - General Family Medicine 12/19/19 documented as of this encounter
--- OUTSIDE RECORDS SUMMARY | 2025-02-02 05:40 | XMS_ITS | Clinical Summary ---
Author Organization [employer] Address [id number] [address] [place] [address] Care Team Providers Care Large Engine Assembler Name Role Phone GerardoCisco cao Primary Care Provider [phone] Allergies No known active allergies Medications testosterone cypionate (DEPOTESTOTERON E CYPIONATE) 100 mg/mL injection Inject 1 mL (100 mg total) into the appropriate muscle. Active anastrozole (ARIMIDEX) 1 mg chemo tablet Take by mouth daily Active metoprolol tartrate (LOPRESSOR) 25 mg tablet take 1 tablet by mouth twice a day Oral for 30 Days Active ALPRAZolam (XANAX) 2 mg tabletIndicatio ns:Anxiety Take 0.5 tablets (1 mg total) by mouth nightly as needed for anxiety. 12/11/19 25 Active dicyclomine (BENTYL) 10 mg capsuleIndicati ons:Irritable bowel syndrome with both constipation and diarrhea Take 1 capsule (10 mg total) by mouth every 6 (six) hours as needed (cramping). 56 capsule 12/18/19 25 Active hydrocortisone- pramoxine (ANALPRAM-HC) 1-1 % rectal cream Insert 1 Application into the rectum in the morning and 1 Application before bedtime. 30 g 12/21/19 25 Active cloNIDine (CATAPRES) 0.1 mg tablet Take 1 tablet (0.1 mg total) by mouth in the morning and 1 tablet (0.1 mg total) before bedtime. 60 tablet 1 01/29/20 25 Active polyethylene glycol (MIRALAX) 17 gram/dose powder Take 17 g by mouth in the morning. 510 g 5 01/29/20 25 Active BENEFIBER SUGAR FREE, DEXTRIN, 3 gram/4 gram powder take 3 (THREE) grams BY MOUTH IN THE MORNING 152 g 5 01/30/20 25 Active cloNIDine (CATAPRES) 0.1 mg tablet Take 1 tablet (0.1 mg total) by mouth in the morning and 1 tablet (0.1 mg total) before bedtime. 60 tablet 1 10/15/19 25 2024 Discontinued(R eorder) polyethylene glycol (MIRALAX) 17 gram/dose powder Take 17 g by mouth in the morning. 510 g 5 12/13/19 25 2024 Discontinued(R eorder) wheat dextrin (BENEFIBER SUGAR FREE, DEXTRIN,) 3 gram/3.8 gram powder Take 3 g by mouth in the morning. 144 g 5 01/01/20 25 2024 Discontinued(R eorder) wheat dextrin (BENEFIBER SUGAR FREE, DEXTRIN,) 3 gram/3.8 gram powder Take 3 g by mouth in the morning. 144 g 5 01/29/20 25 2024 Discontinued Active Problems Problem Noted Date Diagnosed Date Overweight 12/10/2024 Irritable bowel syndrome wit h both constipation and diarrhea 09/11/2024 Change in bowel habits 02/06/2024 Paranoid behavior 12/09/2023 Polysubstance abuse 12/09/2023 Persistent insomnia 02/17/2023 Chronic idiopathic constipation 08/04/2022 Class 1 obesity due to exces s calories with serious comorbidity and body mass index (BMI) of 32.0 to 32.9 in adult 08/04/2022 Hypogonadism in male 10/12/2021 COVID-19 09/06/2021 Delirium tremens 03/09/2021 Severe episode of recurrent major depressive disorder, without psychotic features 03/09/2021 Essential hypertension, benign 03/09/2021 Chronic hepatitis C without hepatic coma 021 Agitation 03/07/2021 Acute hypoxemic respiratory failure 03/04/2021 Polyp of sigmoid colon 10/17/2019 Diverticulosis 10/17/2019 Non-traumatic rhabdomyolysis 01/15/2018 Compartment syndrome of hand 12/29/2015 Internal impingement of right shoulder 6 Anxiety 12/28/2014 Resolved Problems Problem Noted Date Diagnosed Date Resolved Date Colon cancer screening 10/12/201910/17 Depression 02/17/2023 Encounters Date Type Department Care Team Description 01/28/2025 Refill [facility] - [facility] Medicine [address] [place] [address] Cisco Blanc, DO 01/26/2025 Refill [facility] - [facility] [address] [place] [address] Cisco Blanc, DO 12/31/2024 Telephone [facility] [address] [place] [address] Linda Marc, [facility] 12/31/2024 Refill [facility] - Family Medicine [address] [place] [address] Cisco Blanc, 12/26/2024 Orders Only [facility] - Family Medicine [address] [place] [address] Cisco Blanc, DO Chronic idiopathic constipation (Primary Dx); Hepatitis C virus infection without hepatic coma, unspecified chronicity 12/20/2024 Orders Only [facility] - Family Medicine [address] [place] [address] Cisco Blanc, 12/17/2024 Orders Only [facility] - [facility] Medicine [address] [place] [address] Cisco Blanc, DO Irritable bowel syndrome with both constipation and diarrhea (Primary Dx) 12/17/2024 Telephone [facility] - [facility] [address] [place] [address] Barbara De La Torre, [facility] 12/14/2024 Refill [facility] - [facility] [address] [place] [address] Cisco Blanc, Anal fissure (Primary Dx) 12/14/2024 Orders Only [facility] - [facility] Medicine [address] [place] [address] Cisco Blanc, 12/12/2024 Orders Only [facility] - Family Medicine [address] [place] [address] Cisco Blanc, 12/12/2024 [facility] [address] [facility] [place] [address] Cisco Blanc, 12/10/2024 9:08 PM EDT - 12/10/2024 11:59 PM EDT Hospital Encounter [facility] [address] [facility] [place] [address] Hypogonadism in male; Encounter for screening for malignant neoplasm of prostate; Iron overload; Anxiety; Overweight; Well adult exam Discharge Disposition: Home 12/10/2024 1:00 PM EDT [facility] [address] [place] [address] Cisco Blanc, Well adult exam (Primary Dx); Anxiety; Overweight; Iron overload; Encounter for screening for malignant neoplasm of prostate; Ex-smoker; Hypogonadism in male; Severe episode of recurrent major depressive disorder, without psychotic features (CMS-HCC); Irritable bowel syndrome with both constipation and diarrhea 12/09/2024 Travel 11/02/2024 [facility] [address] [place] [address] Cisco Blanc, from Last 3 Months Immunizations Immunization Administration Dates Next Due Influenza, Injectable, quadrivalent (PF) 021,04/06/2020,06/07/2019 Tdap 10/27/2013 Family History Medical History Relation Name Comments Hypertension Brother 1 Ty No Known Problems Brother 2 Jerardo No Known Problems Daughter Coronary artery disease Father Heart attack Father Heart attack Maternal Grandfather Hypertension Mother Heart attack Paternal Grandfather Relation Name Status Comments Brother 1 Ty Alive Brother 2 Jerardo Alive Daughter Alive Father Alive Maternal Grandfather Mother Alive Paternal Grandfather Social History Tobacco Use Types Packs/Day Years Used Date Smoking Tobacco: Former Cigarettes 1 34 1 09/23/1984 - 12/20/2018 Passive Smoke Exposure: Past Smokeless Tobacco: Never Tobacco Cessation:Counseling Given: Not Answered Comments:vape, today Alcohol Use Standard Drinks/Week Comments Yes 0 (1 standard drink = 0.6 oz pur e alcohol) Occasional [facility] Utilities Answer Date Recorded In the past 12 months has [employer] electric, gas, oil, or water company threatened to shut off services in your home? Yes 09/11/2024 Social Connection and Isolation Panel [NHANES] A nswer Date Recorded In a typical week, how many times do you talk on the phone with family, friends, or neighbors? Twice a week 08/01/2022 How often do you get together with friends or re latives? Once a week 08/01/2022 How often do you attend evangelical or episcopal serv ices? Never 08/01/2022 Active Member of Clubs or Organizations Not on f ile 08/01/2022 How often do you attend meet ings of the clubs or organizations you belong to? Never 08/01/2022 Are you , , di vorced, , never , or living with a partner? Never 08/01/2022 AUDIT-C Answer Date Recorded Q1: How often do you have a drink containing alcohol? Monthly or less 09/11/2024 Q2: How many drinks containi ng alcohol do you have on a typical day when you are drinking? Patient does not drink Q3: How often do you have si x or more drinks on one occasion? Less than monthly 09/11/2024 Overall Financial Resource Strain (CARDIA) Answe r Date Recorded How hard is it for you to pa y for the very basics like food, housing, medical care, and heating? Very hard 12/06/2023 PHQ-2 Answer Date Recorded Total Score 21 12/10/2024 [facility] [place] of Occupat ional Health - Occupational Stress [...] medical appointments or from getting medications? No 11/20 In the past 12 months, has l ack of transportation kept you from meetings, work, or from getting things needed for daily living? No 12/06/2023 Housing Instability Answer Date Recorde d Are you worried or concerned that in the next two months you may not have stable housing that you own, rent or stay in as a part of a household? Yes 12/06/2023 Childcare Answer Date Recorded Do problems getting child ca re make 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 you to work or study? No 08/01/2022 Employment Answer Date Recorded Do you need help finding a [facility] career center and/or a training program? No 09/11/2024 Hunger Screening Answer Date Recorded Within the past 12 months we worried whether our food would run out before we got money to buy more. Never True 12/10/2024 Within the past 12 months th e food we bought just didn't last and we didn't have money to get more. Never True 12/10/2024 Purpose - Life Answer Date Recorded I [...] Sign Reading Time Taken Comments Blood Pressure 140/90 12/10/2024 1:07 PM EDT Pulse 102 12/10/2024 1:07 PM EDT Temperature 36.9 C (98.4 F) 12/10/2024 1:07 PM EDT Respiratory Rate 18 12/10/2024 1:07 PM EDT Oxygen Saturation 97% 12/10/2024 1:07 PM EDT Inhaled Oxygen Concentration - - Weight 87.9 kg (193 lb 12.8 oz) 12/10/2024 1:07 PM EDT Height 172.7 cm (5' 8 ) 12/10/2024 1:07 PM EDT Body Mass Index 29.47 12/10/2024 1:07 PM EDT Plan of Treatment Health Maintenance Due Date Last Done Comments Adult BMI Follow Up Plan 1986 DTaP,Tdap and Td Vaccines (2 - Td or Tdap) 10/28/2023 10/27/2013 Influenza Vaccine 04/22/2025 06/20/2021, 04/06/2020, 06/07/2019 Adult BMI Screening 12/10/2025 12/10/2024 COVID-19 Vaccine ( season) 2025 06/20/2021, 12/08/2020, 11/18/2020 Postponed from 04/22/2024 (Patient Refused) Depression Screening 12/10/2025 12/10/2024 Tobacco Screening 12/10/2025 12/10/2024 Zoster (Shingles) Vaccine (1 of 2) 12/10/2025 Postponed from 09/04 (Patient Refused) Colonoscopy 02/16/2034 02/17/2024, 02/17/2024 Goals Goal Patient Goal Type Associated Problems Recent Progress Patient-Stated? Author home with self care General Yes Jenny Noonan, RN Note: Evaluation of progress towards goal: with support from friends and family, patient needs to fllow up with [facility] Medical Devices Not on file Procedures Procedure Name Priority Date/Time Associated Diagnosis Comments COMPREHENSIVE METABOLIC PANEL Routine 12/10/2024 1:37 PM EDT Well adult exam LIPID PROFILE Routine 12/10/2024 1:37 PM EDT Well adult exam TSH WITH REFLEX Routine 12/10/2024 1:37 PM EDT Anxiety Overweight IRON Routine 12/10/2024 1:37 PM EDT Iron overload PROSTATIC SPECIFIC ANTIGEN SCREEN Routine 12/10/2024 1:37 PM EDT Encounter for screening for malignant neoplasm of prostate CBC (NO DIFF) Routine 12/10/2024 1:37 PM EDT Hypogonadism in male PROVATION COLONOSCOPY Routine 02/17/2024 1:59 PM EDT from Last 3 Months or Most Recently Relevant to Health Maintenance Results * TSH with Reflex (12/10/2024 1:37 PM EDT) TSH 1.34 0.49 - 4.67 uIU/mL 12/10/2024 11:04 PM EDT [facility] PLASMA 12/10/2024 1:37 PM EDT 12/10/2024 9:30 PM EDT Cisco Thomason [facility] BLOOD ORDERABLES Final R esult Performing Organization Address City/[facility]/ZIP Co de Phone Number [facility] [address] [place] [id number] * Prostatic specific antigen screen (12/10/2024 1:37 PM EDT) Prostatic specific antigen, screen 0.57 0.00 - 4.00 ng/mL 12/10/2024 11:00 PM EDT [facility] Comment: The method used for this test is Graciela Feedtrace DXI chemiluminescent immunoassay. Values obtained by different assay methods cannot be used interchangeably. Serum / Unknown 12/10/2024 1 :37 PM EDT 12/10/2024 9:30 PM EDT [facility] BLOOD ORDERABLES Final R esult Performing Organization Address City/[facility]/ZIP Co de Phone Number [facility] [address] [place] [address], [address] [address] * CBC without diff (12/10/2024 1:37 PM EDT) Pathologist [facility] White Blood Cells 5.2 4.0 - 11.0 X10E9/L 12/10/2024 10:44 PM EDT [facility] RBC count 5.04 4.10 - 5.70 X10E12/L 12/10/2024 10:44 PM EDT [facility] Hemoglobin 16.1 13.0 - 17.0 g/dL 12/10/2024 10:44 PM EDT [facility] Hematocrit 48.2 39 - 49 % 12/10/2024 10:44 PM EDT [facility] MCV 96 80 - 100 fL 12/10/2024 10:44 PM EDT [facility] MCH 31.9 27 - 34 pg 12/10/2024 10:44 PM EDT [facility] MCHC 33.4 32 - 36 g/dL 12/10/2024 10:44 PM EDT [facility] RDW 13.5 11.5 - 15.0 % 12/10/2024 10:44 PM EDT [facility] Platelets 184 150 - 450 X10E9/L 12/10/2024 10:44 PM EDT [facility] MPV 9.6 7 - 12 fL 12/10/2024 10:44 PM EDT [facility] Blood / Unknown 12/10/2024 1 :37 PM EDT 12/10/2024 9:30 PM EDT us Cisco Blanc DO LAB BLOOD ORDERABLES Final R esult SALMA [facility] [address], [address] [place] [address] * Iron (12/10/2024 1:37 PM EDT) Pathologist [facility] Iron 184 50 - 212 ug/dL 12/10/2024 10:55 PM EDT [facility] Blood (PLASMA) 12/10/2024 1: 37 PM EDT 12/10/2024 9:30 PM EDT us Cisco Blanc DO LAB BLOOD ORDERABLES Final R esult SALMA [facility] [address], [address] [place] [address] * (ABNORMAL) Lipid profile (12/10/2024 1:37 PM EDT) Pathologist [facility] Cholesterol 183 150 - 200 mg/dL 12/10/2024 10:55 PM EDT [facility] Triglycerides 119 27 - 150 mg/dL 12/10/2024 10:55 PM EDT [facility] HDL Cholesterol 38(L) >39 mg/dL 10:55 PM EDT [facility] Comment: HDL <40 mg/dL - High Risk HDL > or = 40mg/dL- Desirable HDL >60 mg/dL - Negative Risk VLDL 24 0 - 30 mg/dL 12/10/2024 10:55 PM EDT [facility] LDL (calc) 121 <130 mg/dL 12/10/2024 10:55 PM EDT [facility] Comment: LDL <100 mg/dL - Desirable LDL >160 mg/dL - High Risk Cholesterol:HDL Ratio 4.8 1.0 - 5.0 12/10/2024 10:55 PM EDT [facility] PLASMA 12/10/2024 1:37 PM EDT 12/10/2024 9:30 PM EDT us Cisco Blanc DO LAB BLOOD ORDERABLES Final R esult SALMA [facility] [address] [place] [address] * Comprehensive metabolic panel (12/10/2024 1:37 PM EDT) Sodium 142 134 - 146 mmol/L 12/10/2024 10:55 PM EDT [facility] Potassium, Bld 4.2 3.5 - 5.0 mmol/L 12/10/2024 10:55 PM EDT [facility] Chloride 105 98 - 109 mmol/L 12/10/2024 10:55 PM EDT [facility] CO2 26 22 - 32 mmol/L 12/10/2024 10:55 PM EDT [facility] Anion gap 11 5 - 15 mmol/L 12/10/2024 10:55 PM EDT [facility] BUN 13 5 - 23 mg/dL 12/10/2024 10:55 PM EDT [facility] Creatinine 0.94 0.60 - 1.30 mg/dL 12/10/2024 10:55 PM EDT [facility] Comment:METHOD TRACEABLE TO IDMS STANDARD Glucose 86 65 - 99 mg/dL 12/10/2024 10:55 PM EDT [facility] Calcium 9.6 8.5 - 10.5 mg/dL 12/10/2024 10:55 PM EDT [facility] Total Protein 7.4 6.0 - 8.0 g/dL 12/10/2024 10:55 PM EDT [facility] Albumin 4.5 3.2 - 5.3 g/dL 12/10/2024 10:55 PM EDT [facility] Alkaline Phosphatase 101 39 - 130 U/L 12/10/2024 10:55 PM EDT [facility] AST 28 0 - 41 U/L 12/10/2024 10:55 PM EDT [facility] ALT 38 0 - 40 U/L 12/10/2024 10:55 PM EDT [facility] Total bilirubin 0.6 0.3 - 1.2 mg/dL 12/10/2024 10:55 PM EDT [facility] eGFR (CKD-EPI)non-rac e dependent >90 >59 ml/min/1.7 3sq.m 12/10/2024 10:55 PM EDT [facility] Comment: Reported eGFR is based on the CKD-EPI 2020 equation that does not use a race coefficient. PLASMA 12/10/2024 1:37 PM EDT 12/10/2024 9:30 PM EDT us Cisco Blanc DO LAB BLOOD ORDERABLES Final R esult SALMA [facility] [address] [place] [address] * Colonoscopy Report (02/17/2024 1:59 PM EDT) Narrative SYSTEMGENERATED, DOCUMENTATION - 02/17/2024 1:59 PM EDT This order has been auto-finalized for image and report archival in PACs. *For full report details, please reach out to your physician. This image is visible to you in MyChart.* us Ty Burciaga DO IMG OR IMG ORDERABLES Final Resu lt from Last 3 Months or Most Recently Relevant to Health Maintenance Insurance * Guarantor: Chai Russell Account Type Relation to Patient Date of Phone Billing Address Personal/Family Self 1970 [address] [place] [address] [facility] MED[facility] * Guarantor: [id number] Account Type Relation to Patient Date of Phone Billing Address Corporate Employer * Guarantor: MILKA CHRISTY Account Type Relation to Patient Date of Phone Billing Address Corporate Employer * Guarantor: [employer] Account Type Relation to Patient Date of Phone Billing Address Corporate Employer Advance Directives * Full Code (Latest Code Status on File) Date Activated Date Inactivated Comments 03/04/2021 9:32 AM 03/10/2021 10:20 PM * Full Code Date Activated Date Inactivated Comments 01/16/2018 1:54 PM 01/17/2018 3:11 PM Care Teams Large Engine Assembler Relationship Specialty Start Date End Date Cisco Blanc DO [address] [place] [address] PCP - General Family Medicine 12/19/19
--- OUTSIDE RECORDS SUMMARY | 2025-02-02 05:40 | XMS_ITS | Encounter Summary ---
Author Organization [employer] Address [id number] [place] [address] Care Team Providers Care Individual Small Group Instructor Name Role Phone Cisco Blanc Primary Care Provider Encounter Details Date Type Department Care Team (Late st Contact Info) Description 02/06/2024 Orders Only [facility] - Family Medicine [address] [place] [id number] Ty Burciaga DO [address] [place] [address] Change in bowel habits (Primary Dx) Social History Tobacco Use Types Packs/Day Years [...] week 08/01/2022 How often do you attend sikh or spiritism serv ices? Never 08/01/2022 Active Member of [...] 12/06/2023 PHQ-2 Answer Date Recorded Total Score 16 12/09/2023 [facility] of Occupat ional Health - Occupational Stress [...] Recorded Do you need help finding a [facility] career center and/or a training program? No 08/01/2022 Hunger Screening Answer Date Recorded Within the past 12 months we worried whether our food would run out before we got money to buy more. Sometimes True 024 Within the past 12 months th e food we bought just didn't last and we didn't have money to get more. Sometimes True 12/09/2023 Purpose - Life Answer Date Recorded I [...] family, patient needs to fllow up with [facility] Dc documented as of this encounter Visit Diagnoses Diagnosis Change in bowel habits- Primary Other symptoms involving digestive system documented in this encounter Additional Health Concerns Assessment Noted Time PHQ-9 Depression Total Score: 16 024 8:43 AM EDT documented as of this encounter Care Teams Individual Small Group Instructor Relationship Specialty Start Date End Date Cisco Blanc DO [address] [facility] [place] [address] PCP - General Family Medicine 12/19/19 documented as of this encounter
--- OUTSIDE RECORDS SUMMARY | 2025-02-02 05:40 | XMS_ITS | Clinical Summary ---
Author Organization [facility] Healthcare Address [address] [place] [address] Care Team Providers Care Manager Case Name Role Phone Unavailable Primary Care Provider Unavailabl e Social History Tobacco Use Types Packs/Day Years Used Date Smoking Tobacco: Never Assessed Sex and Gender Information Value Date Recorded Sex Assigned at Not on file Legal Sex Male 7:16 PM EDT Gender Identity Not on file Sexual Orientation Not on file Last Filed Vital Signs Vital Sign Reading Time Taken Comments Blood Pressure - - Pulse - - Temperature - - Respiratory Rate - - Oxygen Saturation - - Inhaled Oxygen Concentration - - Weight 99.8 kg (220 lb) 07/29/2020 12:00 PM EST Height 172.7 cm (5' 8 ) 07/29/2020 12:00 PM EST Body Mass Index 33.45 07/29/2020 12:00 PM EST Plan of Treatment Not on file
--- OUTSIDE RECORDS SUMMARY | 2025-02-02 05:40 | XMS_ITS | Encounter Summary ---
Author Organization [employer] Address [id number] [place] [address] Care Team Providers Care Third Hand Name Role Phone Cisco Blanc Primary Care Provider Encounter Details Date Type Department Care Team (Late st Contact Info) Description 02/24/2023 Orders Only [facility] - Family Medicine [address] [place] [address] External, Scanning Provider Social History Tobacco Use [...] week 08/01/2022 How often do you attend sikhism or baptist serv ices? Never 08/01/2022 Active Member of [...] Answer Date Recorded Total Score 0 02/17/2023 [facility] [place] of Occupat ional Health - Occupational Stress [...] Recorded Do you need help finding a [facility] and/or a training program? No [...] family, patient needs to fllow up with [facility] Dc documented as of this encounter Procedures Procedure Name Priority Date/Time Associated Diagnosis Comments XR FOOT RT MIN 3 VWS Routine 02/24/2023 documented in this encounter Results * X-ray foot right minimum 3 views (02/24/2023) Anatomical Region Laterality Modality Lower Extremities, MSK, Foot Right Com puted Radiography us Scanning Provider External IMG DIAGNOSTIC IMAGIN G ORDERABLES Final Result documented in this encounter Visit Diagnoses Not on filedocumented in this encounter Additional Health Concerns Assessment Noted Time PHQ-9 Depression Total Score: 0 02/18/20 23 3:23 PM EDT documented as of this encounter Care Teams Third Hand Relationship Specialty Start Date End Date Cisco Blanc DO [address] [facility], [place] [address] PCP - General Family Medicine 12/19/19 documented as of this encounter
--- OUTSIDE RECORDS SUMMARY | 2025-02-02 05:40 | XMS_ITS | Encounter Summary ---
Author Organization [employer] tem Address [id number] [address] [place] [address] Care Team Providers Care Birth Attendant Name Role Phone Cisco Blanc Primary Care Provider [phone] Encounter Details Date Type Department Care Team (Late st Contact Info) Description 03/30/2023 Orders Only [facility] Internal [facility] - Family Medicine [address] [place] [address] Ref Prov, [place] [address] Social History Tobacco Use Types Packs/Day Years [...] week 08/01/2022 How often do you attend moravian or bahai serv ices? Never 08/01/2022 Active Member of [...] Answer Date Recorded Total Score 0 02/17/2023 [facility] of Occupat ional Health - Occupational Stress [...] Recorded Do you need help finding a l al career center and/or a training program? No [...] family, patient needs to fllow up with [facility] upon Dc documented as of this encounter Visit Diagnoses Not on filedocumented in this encounter Additional Health Concerns Assessment Noted Time PHQ-9 Depression Total Score: 0 02/18/20 23 3:23 PM EDT documented as of this encounter Care Teams Birth Attendant Relationship Specialty Start Date End Date Cisco Blanc DO [address], [facility] [place] [address] PCP - General Family Medicine 12/19/19 documented as of this encounter
--- OUTSIDE RECORDS SUMMARY | 2025-02-02 05:40 | XMS_ITS | Encounter Summary ---
Author Organization [employer] tem Address [id number] [address] [place] [address] Care Team Providers Care Humanities Teacher Name Role Phone Cisco Blanc Primary Care Provider Encounter Details Date Type Department Care Team (Late st Contact Info) Description 11/23/2023 Orders Only [facility] - Family Medicine [address] [place] [id number] External, Scanning Provider Social History Tobacco Use [...] week 08/01/2022 How often do you attend advent or amish serv ices? Never 08/01/2022 Active Member of [...] Answer Date Recorded Total Score 0 02/17/2023 [facility] [place] of Occupat ional Health - Occupational Stress [...] Recorded Do you need help finding a [facility] and/or a training program? [...] family, patient needs to fllow up with [facility] Dc documented as of this encounter Procedures Procedure Name Priority Date/Time Associated Diagnosis Comments XR ABDOMEN AP 1 VW Routine 11/22/2023 2:[address] ABDOMEN AND PELVIS W CONT Routine 11/22/2023 2:09 PM EDT documented in this encounter Results * X-ray abdomen ap 1 view (11/22/2023 2:10 PM EDT) Anatomical Region Laterality Modality Body, Abdomen N/A Computed Radiogr aphy us Scanning Provider External IMG DIAGNOSTIC IMAGIN G ORDERABLES Final Result * CT abdomen and pelvis with contrast (11/22/2023 2:09 PM EDT) Anatomical Region Laterality Modality Body, Abdomen, Body Covera N/A Compu ernst Tomography us Scanning Provider External IMG CT ORDERABLES Fin al Result documented in this encounter Visit Diagnoses Not on filedocumented in this encounter Additional Health Concerns Assessment Noted Time PHQ-9 Depression Total Score: 0 02/18/20 23 3:23 PM EDT documented as of this encounter Care Teams Humanities Teacher Relationship Specialty Start Date End Date Cisco Blanc DO [address] [place] [address] PCP - General Family Medicine 12/19/19 documented as of this encounter
--- OUTSIDE RECORDS SUMMARY | 2025-02-02 05:40 | XMS_ITS | Patient Health Record ---
Author Organization [facility] in [place] Address [address] [place] [address] Care Team Providers Care Production Mechanic Name Role Phone Cisco Blanc DO Primary Care Provider Unavail able Allergies No Known Allergies Reason For Referral No Information Medications Medication SIG (Take, Route, Frequency, Duration) Notes Start Date End Date Status HYDROcodone-Acetaminophen 5-325 MG 1 tablet as needed for pain Orally every 4 hours for 7 days 02/28/2023 Active Gabapentin 300 MG TAKE 1 CAPSULE BY MO UTH THREE TIMES DAILY Oral for 30 Days Active Metoprolol Tartrate 25 MG take 1 tablet by mouth twice a day Oral for 30 Days Active HYDROcodone-Acetaminophen 5-325 MG 1 tablet as needed for pain Orally every 6 hrs for 7 days 03/07/2023 Active Amitriptyline HCl 25 MG take 1 tablet by mouth once daily Oral for 30 Days Active ALPRAZolam 1 MG TAKE 1 TABLET BY NEVIN TH THREE TIMES DAILY NEEDED Oral for 30 Days Active Cephalexin 500 MG 1 capsule Orally janis ry 8 hrs for 7 days 02/24/2023 Active amLODIPine Besylate 5 MG take 1 tablet b y mouth once daily Oral for 30 Days Active Social History Tobacco Use: Social History Observation Description Date Details (start date - stop date) Unknown if ever smoked NA - NA Tobacco Use/Smoking Question Answer Notes Patient is a unknown if ever smoked Problems Problem Type SNOMED Code ICD Code Onset Dates Problem Status W/U Status Risk Notes Problem [id number] Displaced fracture of second metatarsal bone, right foot, subsequent encounter for fracture with routine healing (S92.321D) Active confirmed Problem 471043352 Displaced fracture of distal phalanx of right great toe, subsequent encounter for fracture with routine healing (S92.421D) Active confirmed Plan Of Treatment No Information Insurance Providers Payer Name Payer Address Payer Phone Subscriber Number Group Number Insured Name Patient Relationship to Insured Coverage Start Date Coverage End Date [employer] [place] [employer] [address] [facility] [address] [place] [address] [id number] Chai Russell Self - patient is the insured Medical (General) History Medical History History ICD Code Hypertension I10 Right foot pain M79.671 Surgical History Surgery Date(Month/Year) appendectomy compartment syndrome left hand
--- OUTSIDE RECORDS SUMMARY | 2025-02-02 05:40 | XMS_ITS | Encounter Summary ---
Author Organization [employer] tem Address [id number] [address] [place] [address] Care Team Providers Care Permaculture Contractor Name Role Phone Cisco Blanc Primary Care Provider Encounter Details Date Type Department Care Team (Late st Contact Info) Description 02/13/[address] [facility] [address] [place] [phone] Linda Marc CMA Social History Tobacco Use Types Packs/Day Years [...] week 08/01/2022 How often do you attend confucianism or rastafari serv ices? Never 08/01/2022 Active Member of [...] Answer Date Recorded Total Score 16 12/09/2023 [facility] [place] of Occupat ional Health - Occupational Stress [...] Recorded Do you need help finding a [employer] al career center and/or a training program? [...] on file documented as of this encounter Miscellaneous Notes * Telephone Encounter - Linda Marc CMA - 02/13/2024 8:52 AM EDT Pt called states the SUTABS were denied by insurance and wishes to get the SUFLAVE instead with thechances it will be approved by insurance. [facility]. * Telephone Encounter - Ty Burciaga DO - 02/13/2024 8:52 AM EDT Message noted. Rx Suflave sent to pharmacy documented in this encounter Plan of Treatment Not on file documented as of this encounter Goals Goal Patient Goal Type Associated Problems Recent Progress Patient-Stated? Author home with self care General Yes Jenny Noonan, RN Note: Evaluation of progress towards goal: with support from friends and family, patient needs to fllow up with [facility] upon Dc documented as of this encounter Visit Diagnoses Not on filedocumented in this encounter Additional Health Concerns Assessment Noted Time PHQ-9 Depression Total Score: 16 024 8:43 AM EDT documented as of this encounter Care Teams Permaculture Contractor Relationship Specialty Start Date End Date Cisco Blanc DO [address] [place] [address] PCP - General Family Medicine 12/19/19 documented as of this encounter
--- OUTSIDE RECORDS SUMMARY | 2025-02-02 05:40 | XMS_ITS | Encounter Summary ---
Author Organization [employer] Address [id number] [address] [place] [address] Care Team Providers Care Filter Assembler Name Role Phone Cisco Blanc DO Primary Care Provider [phone] Reason for Visit * Reason Comments Med Refill Encounter Details Date Type Department Care Team (Late st Contact Info) Description 08/17/2022 Refill [facility] Internal [facility] - Family Medicine [address] [place] [address] Cisco Blanc DO [address], [email or web address] [place] [address] Social History Tobacco Use Types Packs/Day Years [...] week 08/01/2022 How often do you attend rastafari or scientology serv ices? Never 08/01/2022 Active Member of [...] 08/01/2022 PHQ-2 Answer Date Recorded Total Score 9 08/01/2022 [facility] of Occupat ional Health - [...] Do you need help finding a l ocal career center and/or a training program? No 08/01/2022 Purpose - Life Answer Date Recorded I [...] on file Sexual Orientation Not on file COVID-19 Exposure Response Date Recorded In the last month, have you been in contact with someone who was confirmed or suspected to have Coronavirus / COVID-19? No / Unsure 08/04/2022 10:58 AM EST documented as of this encounter Plan of Treatment Not on file documented as of this encounter Goals Goal Patient Goal Type Associated Problems Recent Progress Patient-Stated? Author home with self care General Yes Jenny Noonan, RN Note: Evaluation of progress towards goal: with support from friends and family, patient needs to fllow up with [facility] upon Dc documented as of this encounter Visit Diagnoses Not on filedocumented in this encounter Additional Health Concerns Assessment Noted Time PHQ-9 Depression Total Score: 9 08/01/20 22 6:00 PM EST documented as of this encounter Care Teams Filter Assembler Relationship Specialty Start Date End Date Cisco Blanc DO [address] [place] [address] PCP - General Family Medicine 12/19/19 documented as of this encounter
--- OUTSIDE RECORDS SUMMARY | 2025-02-02 05:40 | XMS_ITS | Encounter Summary ---
Author Organization [employer] tem Address [id number] [address] [place] [address] Care Team Providers Care Precipitator Operator Name Role Phone Cisco Blanc Primary Care Provider Encounter Details Date Type Department Care Team (Late st Contact Info) Description 02/06/2024 [facility] [address] [place] [phone] Linda Marc CMA Social History Tobacco Use [...] week 08/01/2022 How often do you attend gnosticist or adventist serv ices? Never 08/01/2022 Active Member of [...] Answer Date Recorded Total Score 16 12/09/2023 [facility] of Occupat ional Health - Occupational Stress [...] Recorded Do you need help finding a [employer] career center and/or a training program? [...] Telephone Encounter - Linda Marc CMA - 02/06/2024 12:52 PM EDT Chai is scheduled for a Colonoscopy with you on TuesdayFebruary 16 at 14:30 told him to arrive by 1:30and pt states he would like the SUTABS his pharmacy is [facility] in [place]. He is a Dr Blanc pt. Change In Bowel habits. * Telephone Encounter - Ty Burciaga DO - 02/06/2024 12:52 PM EDT Message noted. H&P done. Rx Sutab sent to pharmacy * Telephone Encounter - Betty Wild - 02/06/2024 12:52 PM EDT Pharmacy denied sutabs, would like to try suflave documented in this encounter Plan of Treatment Not on file documented as of this encounter Goals Goal Patient Goal Type Associated Problems Recent Progress Patient-Stated? Author home with self care General Yes Jenny Noonan, RN Note: Evaluation of progress towards goal: with support from friends and family, patient needs to f[facility]ow up with [facility] documented as of this encounter Visit Diagnoses Not on filedocumented in this encounter Additional Health Concerns Assessment Noted Time PHQ-9 Depression Total Score: 16 024 8:43 AM EDT documented as of this encounter Care Teams Precipitator Operator Relationship Specialty Start Date End Date Cisco Blanc DO [address], [facility] [place] [address] PCP - General Family Medicine 12/19/19 documented as of this encounter
--- OUTSIDE RECORDS SUMMARY | 2025-02-02 05:40 | XMS_ITS | Encounter Summary ---
Author Organization [employer] Address [id number] [address] [place] [address] Care Team Providers Care Auricular Detoxification Specialist Name Role Phone Cisco Blanc DO Primary Care Provider [phone] Reason for Visit * Reason Onset Date Comments Med Refill 01/26/2025 Encounter Details Date Type Department Care Team (Late st Contact Info) Description 01/26/2025 Refill [facility] - Family Medicine [address] [place] [address] Cisco Blanc DO [address], [facility] [place] [address] Social History Tobacco Use Types Packs/Day Years Used Date Smoking Tobacco: Former Cigarettes 1 34 1 09/23/1984 - 12/20/2018 Passive Smoke Exposure: Past Smokeless Tobacco: Never Comments:vape, today Alcohol Use Standard Drinks/Week Comments Yes 0 (1 standard drink = 0.6 oz pur e alcohol) Occasional C Utilities Answer Date Recorded In the past 12 months has [employer] electric, gas, oil, or water company threatened [...] week 08/01/2022 How often do you attend anabaptism or yazdanism serv ices? Never 08/01/2022 Active Member of [...] Answer Date Recorded Total Score 21 12/10/2024 [facility] of Occupat ional Health - Occupational [...] Recorded Do you need help finding a [facility] career center and/or a training program? [...] family, patient needs to fllow up with [facility] documented as of this encounter Visit Diagnoses Not on filedocumented in this encounter Additional Health Concerns Assessment Noted Time PHQ-9 Depression Total Score: 21 025 1:04 PM EDT documented as of this encounter Care Teams Auricular Detoxification Specialist Relationship Specialty Start Date End Date Cisco Blanc DO [address] [facility], [facility] [place] [address] PCP - General Family Medicine 12/19/19 documented as of this encounter
--- OUTSIDE RECORDS SUMMARY | 2025-02-02 05:40 | XMS_ITS | Encounter Summary ---
Author Organization [employer] tem Address [id number] [address] [place] [address] Care Team Providers Care Supervisor Cell Maintenance Name Role Phone Cisco Blanc Primary Care Provider Encounter Details Date Type Department Care Team (Late st Contact Info) Description 02/14/2024 Telephone [facility] [address] [place] [phone] Linda Marc CMA Social History Tobacco Use [...] week 08/01/2022 How often do you attend episcopalian or oriental orthodox serv ices? Never 08/01/2022 Active Member of [...] Answer Date Recorded Total Score 16 12/09/2023 [facility] [place] of Occupat ional Health - Occupational Stress [...] Recorded Do you need help finding a [employer] al career center and/or a training program? [...] Telephone Encounter - Linda Marc CMA - 02/14/2024 10:48 AM EDT I called and talked to Chai and let him know that Dr Burciaga sent in [employer] to his pharmacy also Isent him a email of instructions as pt requested documented in this encounter Plan of Treatment [...] documented as of this encounter Care Teams Supervisor Cell Maintenance Relationship Specialty Start Date End Date Cisco Blanc DO [address], [facility] [place] [address] PCP - General Family Medicine 12/19/19 documented as of this encounter
--- OUTSIDE RECORDS SUMMARY | 2025-02-02 05:40 | XMS_ITS | Patient Health Record ---
Author Organization nprogress [facility] vices Address [address] [place], [place] [id number] Care Team Providers Care Sales And Operations Trainee Name Role Phone Brooke Castellano Primary Care Provider [phone] Allergies No Known Allergies Reason For Referral No Information Medications Medication SIG (Take, Route, Frequency, Duration) Notes Start Date End Date Status hydrOXYzine Pamoate 50 MG 1 capsule as needed Orally twice daily As needed for panic 05/17/2024 Active busPIRone HCl 15 MG 1 tablet Orally Twice a day Take upon awakening and at 5-6 pm 05/17/2024 Active Sertraline HCl 50 MG 1 tablet Orally morning 05/17 Active Metoprolol Tartrate 25 MG 1 tablet with food Oral Twice a day for 30 days Active amLODIPine Besylate 5 MG 1 tablet Oral O nce a day for 30 days Active Gummies 0.18-25 MG as directed Orally Active Social History Tobacco Use: Social History Observation Description Date Details (start date - stop date) Current Smoker 08/22/1984 - NA Sex Assigned At : Social History Observation Description Sex Assigned At Male Tobacco Use/Smoking Question Answer Notes Tobacco use: current smoker patient enter ed data Are you interested in quitting? Not ready to radha t patient entered data How many cigarettes a day do you smoke? 5 or less patient entered data How soon after you wake up d o you smoke your first cigarette? after 60 minutes patient entered margie a How often do you smoke cigarettes? some days, but not every day patient entered data When did you start smoking? 08/22/1984 p atient entered data CAGE-AID Questionnaire (2018 Edition) Question Answer Notes Have you ever felt that you ought to cut down on your drinking or drug use? No patient entered data Have people annoyed you by c riticizing your drinking or drug use? No patient entered data Have you ever felt bad or gu ilty about your drinking or drug use? No patient entered data Have you ever had a drink or used drugs first thing in the morning to steady your nerves or to get rid of a hangover? No patient entered data PRAPARE Question Answer Notes What country are you from? [place] sincere lisa entered data Are you a refugee? No patient en tered data In the past year, have you b een afraid of your partner or ex-partner? No patient entered data Do you feel physically and emotionally safe where you currently live? Yes patient entered data In the past year have you sp ent more than 2 nights in a row in a fpc, retirement, usp center, or juvenile correctional facility? No patient entered data How often do you see or talk to people that you care about and feel close to? (For example: talking to friends on the phone, visiting friends or family, going to faith or club meetings) More than 5 times a week patient entered data Has lack of transportation k ept you from medical appointments, meetings, work or from getting things needed for daily living? No patient entered margie a In the past year, have you o r any family members you live with been unable to get any of the following when it was really needed? Check all that apply Utilities patient entered data What is your current work situation? Unemployed and seeking work patient entered data What is the highest level of school that you have finished? More than high school patient entered data Are you worried about losing your housing? No patient entered data What is your current housing situation? I have housing patient entered data Date Completed/Updated: 05/17/2024 merritt nt entered data CRAFFT V2.1 Question Answer Notes 1. Drink more than a few sip s of beer, wine, or any drink containing alcohol? Say 0 if none 0 2. Use any marijuana (cannab is, weed, oil, wax, or hash by smoking, vaping, dabbing, or in edibles) or synthetic marijuana: (like K2 , Spice )? Say 0 if none 0 3. Use anything else to get high (like other illegal drugs, pills, prescription or [id number] medications, and things that you sniff, herndon, vape, or inject)? Say 0 if none 0 Have you ever ridden in a [place] R driven by someone (including yourself) who was high or had been using alcohol or drugs? 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) Active confirmed Problem 012118724 Agoraphobia with panic attacks (F40.01) Active confirmed Problem 893765931 BMI 27.0-27.9,adult (Z68.27) Active confirmed Problem 190190380 Dietary counseling (Z71.3) Active confirmed Problem 1260255035 H/O: drug dependency (F19.21) Active confirmed Vital Signs Heart Rate 89 /min 05/17/2024 Blood pressure diastolic 85 mm Hg 05/17/2024 Height-cm 172.72 cm 05/17/2024 Weight-kg 83.01 kg 05/17/2024 Height 68 in 05/17/2024 Blood pressure systolic 130 mm Hg 05/17/2024 Weight 183 lbs 05/17/2024 BMI 27.82 kg/m2 05/17/2024 Encounters Encounter Location Date Provider Diagnosis Main [address] [place], [place] [id number] 05/17/2024 Brooke Castellano Dietary counseling Z 71.3 ; Agoraphobia with panic attacks F40.01 ; Exercise counseling Z71.82 ; Severe anxiety F41.9 ; H/O: drug dependency F19.21 ; BMI 27.0-27.9,adult Z68.27 ; Cigarette nicotine dependence without complication F17.210 ; Moderate major depression F32.1 and Positive depression screening Z13.31 Assessments Encounter Date Diagnosis (ICD Code) Assessment Notes Treatment Notes Treatment Clinical Notes Section Notes 05/17/2024 Agoraphobia with panic attacks (ICD-10 - F40.01) Start Zoloft 50 mg AM for depression/anxiety . Start Buspirone 15 mg BID for anxiety and Vistaril 50 mg PRN for panic atttacks. Risks/benefits discussed. Patient is agreeable to medications and plan of care. RTO in 4 weeks or as needed. We discussed issues related to healthy weight, diet, and sleep hygiene. Discussed the heat related illness in psychotropic medication users and advised to take precautions to avoid heatstroke and heat exhaustion.Engineering Technical Analyst ing encouraged. Advised that due to his past HEVER, benzodiazepines are not a good choice due to high addiction possibility and potential for abuse. 05/17/2024 Dietary counseling (ICD-10 - Z71.3) Start Zoloft 50 mg AM for depression/anxiety . Start Buspirone 15 mg BID for anxiety and Vistaril 50 mg PRN for panic atttacks. Risks/benefits discussed. Patient is agreeable to medications and plan of care. RTO in 4 weeks or as needed. We discussed issues related to healthy weight, diet, and sleep hygiene. Discussed the heat related illness in psychotropic medication users and advised to take precautions to avoid heatstroke and heat exhaustion.Engineering Technical Analyst ing encouraged. Advised that due to his past HEVER, benzodiazepines are not a good choice due to high addiction possibility and potential for abuse. 05/17/2024 Exercise counseling (ICD-10 - Z71.82) Start Zoloft 50 mg AM for depression/anxiety . Start Buspirone 15 mg BID for anxiety and Vistaril 50 mg PRN for panic atttacks. Risks/benefits discussed. Patient is agreeable to medications and plan of care. RTO in 4 weeks or as needed. We discussed issues related to healthy weight, diet, and sleep hygiene. Discussed the heat related illness in psychotropic medication users and advised to take precautions to avoid heatstroke and heat exhaustion.Engineering Technical Analyst ing encouraged. Advised that due to his past HEVER, benzodiazepines are not a good choice due to high addiction possibility and potential for abuse. 05/17/2024 Severe anxiety (ICD-10 - F41.9) Start Zoloft 50 mg AM for depression/anxiety . Start Buspirone 15 mg BID for anxiety and Vistaril 50 mg PRN for panic atttacks. Risks/benefits discussed. Patient is agreeable to medications and plan of care. RTO in 4 weeks or as needed. We discussed issues related to healthy weight, diet, and sleep hygiene. Discussed the heat related illness in psychotropic medication users and advised to take precautions to avoid heatstroke and heat exhaustion.Engineering Technical Analyst ing encouraged. Advised that due to his past HEVER, benzodiazepines are not a good choice due to high addiction possibility and potential for abuse. 05/17/2024 H/O: drug dependency (ICD-10 - F19.21) Start Zoloft 50 mg AM for depression/anxiety . Start Buspirone 15 mg BID for anxiety and Vistaril 50 mg PRN for panic atttacks. Risks/benefits discussed. Patient is agreeable to medications and plan of care. RTO in 4 weeks or as needed. We discussed issues related to healthy weight, diet, and sleep hygiene. Discussed the heat related illness in psychotropic medication users and advised to take precautions to avoid heatstroke and heat exhaustion.Engineering Technical Analyst ing encouraged. Advised that due to his past HEVER, benzodiazepines are not a good choice due to high addiction possibility and potential for abuse. 05/17/2024 BMI 27.0-27.9,adult (ICD-10 - Z68.27) Start Zoloft 50 mg AM for depression/anxiety . Start Buspirone 15 mg BID for anxiety and Vistaril 50 mg PRN for panic atttacks. Risks/benefits discussed. Patient is agreeable to medications and plan of care. RTO in 4 weeks or as needed. We discussed issues related to healthy weight, diet, and sleep hygiene. Discussed the heat related illness in psychotropic medication users and advised to take precautions to avoid heatstroke and heat exhaustion.Engineering Technical Analyst ing encouraged. Advised that due to his past HEVER, benzodiazepines are not a good choice due to high addiction possibility and potential for abuse. 05/17/2024 Cigarette nicotine dependence without complication (ICD-10 - F17.210) Patient provided with [phone] OW phone line. Patient provided with [phone] OW phone line. Patient provided with [phone] OW phone line. Start Zoloft 50 mg AM for depression/anxiety . Start Buspirone 15 mg BID for anxiety and Vistaril 50 mg PRN for panic atttacks. Risks/benefits discussed. Patient is agreeable to medications and plan of care. RTO in 4 weeks or as needed. We discussed issues related to healthy weight, diet, and sleep hygiene. Discussed the heat related illness in psychotropic medication users and advised to take precautions to avoid heatstroke and heat exhaustion.Engineering Technical Analyst ing encouraged. Advised that due to his past HEVER, benzodiazepines are not a good choice due to high addiction possibility and potential for abuse. 05/17/2024 Moderate major depression (ICD-10 - F32.1) Start Zoloft 50 mg AM for depression/anxiety . Start Buspirone 15 mg BID for anxiety and Vistaril 50 mg PRN for panic atttacks. Risks/benefits discussed. Patient is agreeable to medications and plan of care. RTO in 4 weeks or as needed. We discussed issues related to healthy weight, diet, and sleep hygiene. Discussed the heat related illness in psychotropic medication users and advised to take precautions to avoid heatstroke and heat exhaustion.Engineering Technical Analyst ing encouraged. Advised that due to his past HEVER, benzodiazepines are not a good choice due to high addiction possibility and potential for abuse. 05/17/2024 Positive depression screening (ICD-10 - Z13.31) Start Zoloft 50 mg AM for depression/anxiety . Start Buspirone 15 mg BID for anxiety and Vistaril 50 mg PRN for panic atttacks. Risks/benefits discussed. Patient is agreeable to medications and plan of care. RTO in 4 weeks or as needed. We discussed issues related to healthy weight, diet, and sleep hygiene. Discussed the heat related illness in psychotropic medication users and advised to take precautions to avoid heatstroke and heat exhaustion.Engineering Technical Analyst ing encouraged. Advised that due to his past HEVER, benzodiazepines are not a good choice due to high addiction possibility and potential for abuse. Plan Of Treatment No Information Insurance Providers Payer Name Payer Address Payer Phone Subscriber Number Group Number Insured Name Patient Relationship to Insured Coverage Start Date Coverage End Date [facility] [address] [place] [address] [id number] Chai Russell Self - patient is the insured 4 Medicaid CFC after [facility] [address] [place] [address] [id number] [employer]ft[employer], Chai Self - patient is the insured 4
--- OUTSIDE RECORDS SUMMARY | 2025-02-02 05:40 | XMS_ITS | Encounter Summary ---
Author Organization [employer] Dat[employer] tem Address [id number] [address] [place] [address] Care Team Providers Care Salmon Gillnet Vessel Operator Name Role Phone Cisco Blanc DO Primary Care Provider [phone] Reason for Visit * Reason Comments Med Refill Encounter Details Date Type Department Care Team (Late st Contact Info) Description 08/30/2022 Refill [facility] Internal Medicine - Family Medicine [address] [place] [address] Cisco Blanc DO [address], [facility] [place] [address] Social History Tobacco Use Types Packs/Day Years [...] week 08/01/2022 How often do you attend catholic or amish serv ices? Never 08/01/2022 Active [...] Answer Date Recorded Total Score 9 08/01/2022 [facility] - Occupational [...] family, patient needs to fllow up with [facility] upon Dc documented as of this encounter Visit Diagnoses Not on filedocumented in this encounter Additional Health Concerns Assessment Noted Time PHQ-9 Depression Total Score: 9 08/01/20 22 6:00 PM EST documented as of this encounter Care Teams Salmon Gillnet Vessel Operator Relationship Specialty Start Date End Date Cisco Blanc DO [address] [place] [address] PCP - General Family Medicine 12/19/19 documented as of this encounter
--- OUTSIDE RECORDS SUMMARY | 2025-02-02 05:40 | XMS_ITS | Encounter Summary ---
Author Organization [email or web address] tem Address [id number] [place] [address] Care Team Providers Care Loan Documents Closer Name Role Phone Cisco Blanc DO Primary Care Provider [phone] Reason for Visit * Reason Comments Med Change Request Encounter Details Date Type Department Care Team (Late st Contact Info) Description 01/28/2025 Refill [facility] Internal Medicine - Family Medicine [address] [place] [address] Cisco Blanc DO [address] [facility] [place] [address] Social History Tobacco Use Types Packs/Day Years Used Date Smoking Tobacco: Former Cigarettes 1 34 1 09/23/1984 - 12/20/2018 Passive Smoke Exposure: Past Smokeless Tobacco: Never Comments:vape, today Alcohol Use Standard Drinks/Week Comments Yes 0 (1 standard drink = 0.6 oz pur e alcohol) Occasional C Utilities Answer Date Recorded In the past 12 months has [employer], gas, oil, or water company threatened [...] week 08/01/2022 How often do you attend oriental orthodox or buddhism serv ices? Never 08/01/2022 Active Member of [...] Answer Date Recorded Total Score 21 12/10/2024 [facility] Occupat ional Health - Occupational Stress [...] Recorded Do you need help finding a [facility] career center and/or a training [...] family, patient needs to fllow up with [facility] upon Dc documented as of this encounter Visit Diagnoses Not on filedocumented in this encounter Additional Health Concerns Assessment Noted Time PHQ-9 Depression Total Score: 21 025 1:04 PM EDT documented as of this encounter Care Teams Loan Documents Closer Relationship Specialty Start Date End Date Cisco Blanc DO [address], [place] [address] PCP - General Family Medicine 12/19/19 documented as of this encounter
--- OUTSIDE RECORDS SUMMARY | 2025-02-02 05:40 | XMS_ITS | Encounter Summary ---
Author Organization [employer] tem Address [id number] [place] [address] Care Team Providers Care Reduction Plant Supervisor Name Role Phone Cisco Blanc Primary Care Provider [phone] Encounter Details Date Type Department Care Team (Late st Contact Info) Description 02/14/2024 Orders Only [facility] Internal Medicine - Family Medicine [address] [place] [phone] Ty Burciaga DO [address] [place] [address] Change in bowel habits (Primary Dx) Social [...] week 08/01/2022 How often do you attend methodist or religion serv ices? Never 08/01/2022 Active Member of [...] Answer Date Recorded Total Score 16 12/09/2023 [facility] Occupat ional Health - Occupational [...] Recorded Do you need help finding a [facility] career center and/or a training [...] family, patient needs to fllow up with [facility] Dc documented as of this encounter Visit Diagnoses Diagnosis Change in bowel habits- Primary Other symptoms involving digestive system documented in this encounter Additional Health Concerns Assessment Noted Time PHQ-9 Depression Total Score: 16 024 8:43 AM EDT documented as of this encounter Care Teams Reduction Plant Supervisor Relationship Specialty Start Date End Date Cisco Blanc DO [address] [facility] [place] [address] PCP - General Family Medicine 12/19/19 documented as of this encounter
--- OUTSIDE RECORDS SUMMARY | 2025-02-02 05:40 | XMS_ITS | Clinical Summary ---
Author Organization [facility] Address [address] [place] [address] Care Team Providers Care Dumper Name Role Phone Tyson Fonseca MD Primary Care Provider [phone] Vivian Brady MD Unavailable [phone] Encounters Date Type Department Care Team Description 01/16/2025 Transcribe Orders Referring Physician [address] [place] [phone] Vivian Brady MD Constipation by outlet dysfunction (Primary Dx); Stress-related physiological response affecting medical condition from Last 3 Months Social History Tobacco Use Types Packs/Day Years Used Date Smoking Tobacco: Never Assessed Sex and Gender Information Value Date Recorded Sex Assigned at Not on file Legal Sex Male 1:48 PM EDT Gender Identity Not on file Sexual Orientation Not on file Plan of Treatment Not on file Insurance * Guarantor: Chai Russell Account Type Relation to Patient Date of Phone Billing Address Personal/Family Self 1970 [address] [place] [address] [facility] Care Teams Dumper Relationship Specialty Start Date End Date Tyson Fonseca MD PCP - General Family Medicine 11/11/15 Vivian Brady MD [address] [place] [address] Gastroenterology 01/16/25
--- OUTSIDE RECORDS SUMMARY | 2025-02-02 05:40 | XMS_ITS | Encounter Summary ---
Author Organization [employer] tem Address [id number] [address] [place] [address] Care Team Providers Care Welcome Desk Agent Name Role Phone Cisco Blanc DO Primary Care Provider [phone] Reason for Visit * Reason Comments Med Refill Encounter Details Date Type Department Care Team (Late st Contact Info) Description 01/18/2023 Refill [facility] Internal Medicine - Family Medicine [address] [place] [address] Cisco Blanc DO [address], [facility] [place] [address] Social History Tobacco Use Types Packs/Day Years [...] week 08/01/2022 How often do you attend jain or methodist serv ices? Never 08/01/2022 Active Member of [...] Answer Date Recorded Total Score 9 08/01/2022 [facility] Occupat ional Health - Occupational [...] family, patient needs to fllow up with [facility] upon Dc documented as of this encounter Visit Diagnoses Not on filedocumented in this encounter Additional Health Concerns Assessment Noted Time PHQ-9 Depression Total Score: 9 08/01/20 22 6:00 PM EST documented as of this encounter Care Teams Welcome Desk Agent Relationship Specialty Start Date End Date Cisco Blanc DO [address] [facility], [place] [address] PCP - General Family Medicine 12/19/19 documented as of this encounter
--- OUTSIDE RECORDS SUMMARY | 2025-02-02 05:40 | XMS_ITS | Encounter Summary ---
Author Organization [employer] tem Address [id number] [place] [address] Care Team Providers Care Piccoloist Name Role Phone Cisco Blanc Primary Care Provider [phone] Encounter Details Date Type Department Care Team (Late st Contact Info) Description 02/13/2024 Orders Only [facility] Internal Medicine - Family Medicine [address] [place] [phone] Ty Burciaga DO [address] [place] [address] Change in bowel habits (Primary Dx) Social [...] week 08/01/2022 How often do you attend temple or nondenominational serv ices? Never 08/01/2022 Active Member of [...] Answer Date Recorded Total Score 16 12/09/2023 [facility] Occupat ional Health - Occupational [...] Recorded Do you need help finding a [facility] career center and/or a training program? [...] family, patient needs to fllow up with [facility] Dc documented as of this encounter Visit Diagnoses Diagnosis Change in bowel habits- Primary Other symptoms involving digestive system documented in this encounter Additional Health Concerns Assessment Noted Time PHQ-9 Depression Total Score: 16 024 8:43 AM EDT documented as of this encounter Care Teams Piccoloist Relationship Specialty Start Date End Date Cisco Blanc DO [address] [facility] [place] [address] PCP - General Family Medicine 12/19/19 documented as of this encounter
--- OUTSIDE RECORDS SUMMARY | 2025-02-02 05:40 | XMS_ITS | Encounter Summary ---
Author Organization [employer] tem Address [id number] [address] [place] [address] Care Team Providers Care Stock House Worker Name Role Phone Cisco Blanc DO Primary Care Provider [phone] Reason for Visit * Reason Comments Med Refill Encounter Details Date Type Department Care Team (Late st Contact Info) Description 09/15/2022 Refill [facility] Internal Medicine - Family Medicine [address] [place] [address] Cisco Blanc DO [address], [facility] [place] [address] Social History Tobacco Use Types Packs/Day Years [...] week 08/01/2022 How often do you attend baptism or holiness serv ices? Never 08/01/2022 Active Member of [...] Answer Date Recorded Total Score 9 08/01/2022 [facility] Occupat ional Health - Occupational Stress [...] family, patient [facility] documented as of this encounter Visit Diagnoses Not on filedocumented in this encounter Additional Health Concerns Assessment Noted Time PHQ-9 Depression Total Score: 9 08/01/20 22 6:00 PM EST documented as of this encounter Care Teams Stock House Worker Relationship Specialty Start Date End Date Cisco Blanc DO [address] [facility], [place] [address] PCP - General Family Medicine 12/19/19 documented as of this encounter
--- OUTSIDE RECORDS SUMMARY | 2025-02-02 05:40 | XMS_ITS | CCD ---
Author Organization [facility] Inform ion [facility] Care Team Providers Care Retail Sales Associate Seasonal Name Role Phone OSINOWO, OSIYEMI Unavailable Unavailable OSINOWO, OSIYEMI Unavailable Unavailable NADERER, TYSON Unavailable Unavailable NADERER, TYSON Unavailable Unavailable Mary King Unavailable Tawnya Andre Unavailable CHAD, DR CISCO Thomason Primary Care Unavailable MARKER, DR JUARES Admitting Unavailable MARKER, DR JUARES Attending Unavailable MARKER, DR JUARES Consulting Unavailable ALANA MORROW Consulting Unavailable DO Cisco Blanc Primary Care Provider MD Jennyfer Winkler Emergency Provider CISCO BLANC Primary Care Physician JAME De Emergency Provider [phone] Cisco Blanc Primary Care Unavailable James De Attending Unavailable James De Admitting Unavailable Jennyfer Winkler Attending Unavailable Jennyfer Winkler Admitting Unavailable Cisco Blanc Primary Care Unavailable JENNYFER ACHARYA Admitting Unavailable JENNYFER ACHARYA Attending Unavailable CISCO BLANC Primary Care Unavailable JENNYFER ACHARYA Attending Unavailable JENNYFER ACHARYA Referring Unavailable CISCO BLANC Primary Care Unavailable CISCO BLANC Primary Care Unavailable JULIETTE NORRIS Attending Unavailable Cisco Blanc DO Primary Care Provider Cisco Blanc DO Primary Care Provider [phone] CISCO BLANC Attending Unavailable CISCO BLANC Referring Unavailable CISCO BLANC Primary Care Unavailable CISCO BLANC Attending Unavailable FURLONG, CISCO G Referring Unavailable FURLONG, CISCO G Primary Care Unavailable FURLONG, CISCO G Attending Unavailable FURLONG, CISCO G Referring Unavailable FURLONG, CISCO G Primary Care Unavailable FURLONG, CISCO G Referring Unavailable FURLONG, CISCO G Primary Care Unavailable FURLONG, CISCO G Referring Unavailable FURLONG, CISCO G Primary Care Unavailable Marian CHAVIS, Tyson Ro Primary Care Provider [phone] Vivian Brady MD [phone] Didi Allen Attending Unavailable Didi Allen Attending Unavailable Vivian Brady Attending Unavailable Vivian Brady Attending Unavailable Vivian Brady Attending Unavailable Allergies Allergy Classification Reported Allergen(s) Allergy Type Date of Onset Reaction(s) Facility (1 source) No Known Medication Allergies; Translations: [No Known Medication Allergies] Propensity to adverse reactions (disorder) [facility] Repository Medications Current Medications Medication Drug Class(es) Dates Sig (Normalized) Sig (Original) ALPRAZolam 2 mg oral tablet (20 sources) Benzodiazepine Start: 12-10-2024 take 0.5 tablet by mouth once daily as needed for anxiety ALPRAZolam (XANAX) 2 mg tablet Indications: Anxiety Take 0.5 tablets (1 mg total) by mouth nightly as needed for anxiety. 12/10/2024 Active Start: 08-19-2019 End: 03-03-2024 take 1 tablet by mouth three times daily Alprazolam (Xanax) 1 mg tablet Discontinued 1 MG PO Three times daily 9 August 19, 2019 7:00pm March 03, 2024 11:08am End: 03-15-2024 take 1 tablet by mouth once daily as needed for anxiety ALPRAZolam (XANAX) 1 mg tablet Take 1 tablet (1 mg total) by mouth nightly as needed for anxiety. 03/15/2024 Discontinued (Therapy completed) ALPRAZolam Activ e amLODIPine 5 mg oral tablet (14 sources) Dihydropyridine Calcium Channel Philip Start: 08-19-2019 End: 09-11-2024 amLODIPine 5 mg Tab Refills(s) 0 Start Date: 02/02/24 Status: Ordered Repeat number: 1 amLODIPine Besyl ate Active anastrozole 1 mg oral tablet (20 sources) Aromatase Inhibitor Start: 01-09-2025 take 1 mg by mouth once daily anastrozole mg, Oral, Daily, Refills(s) 0 Start Date: 01/09/25 Status: Ordered Repeat number: 1 Start: 03-03-2024 take 1 mg by mouth every week Anastrozole Active 1 MG PO .weekly March 03, 2024 12:00am cloNIDine hydrochloride 0.1 mg oral tablet (18 sources) Central alpha-2 Adrenergic Agonist Start: 01-28-2025 take 1 tablet by mouth in the morning, then take 1 tablet by mouth at bedtime cloNIDine (CATAPRES) 0.1 mg tablet Take 1 tablet (0.1 mg total) by mouth in the morning and 1 tablet (0.1 mg total) before bedtime. 60 tablet 1 01/28/2025 Active Start: 10-15-2024 End: 01-26-2025 cloNIDine 0.1 mg tab Refills (s) 0 Start Date: 01/09/25 Status: Ordered Repeat number: 1 cyclobenzaprine hydrochloride 10 mg oral tablet (1 source) Muscle Relaxant Start: 02-03-2021 take 1 tablet by mouth every eight hours Cyclobenzaprine HCl 10 MG 1 tablet at bedtime as needed Orally Three times a day for 7 days Jan, Active dicyclomine hydrochloride 10 mg oral capsule (19 sources) Anticholinergic Start: 12-17-2024 take 1 capsule by mouth every six hours as needed dicyclomine (BENTYL) 10 mg capsule Indications: Irritable bowel syndrome with both constipation and diarrhea Take 1 capsule (10 mg total) by mouth every 6 (six) hours as needed (cramping). 56 capsule 12/17/2024 Active Start: 09-11-2024 End: 12-10-2024 take 2 capsules by mouth every six hours as needed dicyclomine (BENTYL) 10 mg capsule Indications: Irritable bowel syndrome with both constipation and diarrhea Take 2 capsules (20 mg total) by mouth every 6 (six) hours as needed (cramping and bloating). 120 capsule 1 09/11/2024 12/10/2024 Discontinued (Ineffective) Start: 09-06-2024 End: 09-11-2024 dicyclomine (BENTYL) 10 mg c apsule 09/06/2024 09/11/2024 Discontinued (Reorder) Enclomifene (2 sources) Start: 01-09-2025 Enclomifene Enclomifene Start Date: 01/09/25 Status: Ordered Repeat number: 1 Enclomiphene (1 source) Start: 03-03-2024 take 1 capsule by mouth two times weekly Enclomiphene Active 1 CAP PO Twice a Week March 03, 2024 12:00am hydrocortisone acetate 10 mg/ml / pramoxine hydrochloride 10 mg/ml rectal cream (20 sources) Corticosteroid Start: 12-20-2024 hydrocortisone -pra moxine (ANALPRAM-HC) 1-1 % rectal cream Insert 1 Application into the rectum in the morning and 1 Application before bedtime. 30 g 12/20/2024 Active Start: 12-14-2024 End: 12-20-2024 PRAMOSONE cream Indications: Anal fissure APPLY TO THE AFFECTED AREA THREE TIMES DAILY 28.4 g 1 12/14/2024 12/20/2024 Discontinued Start: 12-12-2024 End: 12-14-2024 hydrocortisone-pramoxine (AN ALPRAM HC) cream Apply topically 3 (three) times a day. Apply thin film to affected area 30 g 1 12/14/2024 12/14/2024 Discontinued Start: 03-15-2024 End: 12-10-2024 hydrocortisone-pramoxine (AN ALPRAM-HC) 1-1 % rectal cream Insert 1 Application into the rectum in the morning and 1 Application before bedtime. 30 g 09/12/2024 12/10/2024 Discontinued (Therapy completed) hydrOXYzine pamoate 50 mg oral capsule (4 sources) Antihistamine Start: 12-09-2023 take 1 capsule by mouth three times daily as needed for anxiety hydrOXYzine (VISTARIL) 50 mg capsule Take 1 capsule (50 mg total) by mouth 3 (three) times a day as needed for anxiety. 30 capsule 1 12/09/2023 Active lidocaine 0.05 mg/mg medicated patch (1 source) Antiarrhythmic, Amide Local Anesthetic Start: 02-03-2021 Lidocaine 5 % 1 patch remove after 12 hours Externally Once a day for 7 days Jan, Active linaclotide 0.072 mg oral capsule (4 sources) Guanylate Cyclase-C Agonist Start: 12-09-2023 take 1 capsule by mouth in the morning linaCLOtide (LINZESS) 72 mcg capsule Take 1 capsule (72 mcg total) by mouth in the morning. 30 capsule 1 12/09/2023 Active metoprolol tartrate 25 mg oral tablet (20 sources) beta-Adrenergic Philip Start: 02-02-2024 End: 09-11-2024 take 1 tablet by mouth once daily Lopressor 25 mg oral tablet 25 mg = 1 tab(s), Oral, Daily, Refills(s) 0 Start Date: 02/02/24 Status: Ordered Repeat number: 1 Start: 02-15-2023 End: 03-14-2024 take 1 tablet by mouth twice daily metoprolol tartrate (LOPRESSOR) 25 mg tablet take 1 tablet by mouth twice a day 60 tablet 5 02/15/2023 03/14/2024 Discontinued (Reorder) Metoprolol Tartr ate Active nitrofurantoin, macrocrystals 25 mg / nitrofurantoin, monohydrate 75 mg oral capsule (6 sources) Nitrofuran Antibacterial Start: 01-30-2024 End: 03-03-2024 nitrofurantoin macrocrystals-monohydrate 100 mg Cap Refills(s) 0 Start Date: 02/02/24 Status: Ordered Repeat number: 1 plecanatide 3 mg oral tablet (1 source) Start: 01-24-2025 take 1 tablet by mouth once daily Trulance 3 mg oral tablet 3 mg = 1 tab(s), Oral, Daily, # 30 tab(s), Refills(s) 4, Pharmacy: [id number], 173, cm, 01/24/25 10:35:00 EDT, Height/Length Dosing, 86.3, kg, 01/24/25 10:35:00 EDT, Weight Dosing Start Date: 01/24/25 Status: Ordered Quantity: 30.0 Unit: tab(s) Repeat number: 5 Indications: Other specified disorders of muscle; Outlet dysfunction constipation; Constipation, unspecified; Psychological and behavioral factors associated with disorders or diseases classified elsewhere; Other psychoactive substance dependence, uncomplicated; Abdominal distension (gaseous); polyethylene glycol 3350 83050 mg powder for oral solution (20 sources) Osmotic Laxative Start: 01-28-2025 polyethylene glycol (MIRALAX) 17 gram/dose powder Take 17 g by mouth in the morning. 510 g 5 01/28/2025 Active Start: 09-11-2024 End: 01-26-2025 take 17 g by mouth once daily Miralax 3350 17 gram pac ket 17 gm, Oral, Daily, # 255 gm, Refills(s) 3, Pharmacy: [facility] #[id number], 173, cm, 01/09/25 12:52:00 EDT, Height/Length Dosing, 90.9, kg, 01/09/25 12:52:00 EDT, Weight Dosing Start Date: 01/09/25 Status: Ordered Quantity: 255.0 Unit: g Repeat number: 4 Start: 02-20-2024 End: 03-15-2024 polyethylene glycol (GLYCOLA X) 17 gram/dose powder Take 17 g by mouth in the morning. 510 g 02/20/2024 03/15/2024 Discontinued (Therapy completed) Senna Leaves (2 sources) Start: 01-09-2025 Senna 8.6 mg o ral tablet 17.2 mg, 2 tab(s), Oral, Once a day (at bedtime) for constipation, 100 tab(s), Refill(s) 3, [facility] #[id number], 173, cm, 01/09/25 12:52:00 EDT, Height/Length Dosing, 90.9, kg, 01/09/25 12:52:00 EDT, Weight Dosing Start Date: 01/09/25 Status: Ordered Quantity: 100.0 Unit: tab(s) Repeat number: 4 Sertraline (2 sources) Serotonin Reuptake Inhibitor Sertraline HCl Active tamsulosin hydrochloride 0.4 mg oral capsule (3 sources) alpha-Adrenergic Philip Start: 02-02-2024 take 0.4 mg by mouth once daily Tamsulosin Active 0.4 MG PO Daily March 03, 2024 12:00am Testosterone (20 sources) Androgen Start: 01-09-2025 testosterone Refills(s) 0 Start Date: 01/09/25 Status: Ordered Repeat number: 1 Start: 03-03-2024 inject 200 mg by int ramuscular injection every week Testosterone Cypionate Active 200 MG IM every week March 03, 2024 12:00am testosterone cyp ionate (DEPOTESTOTERONE CYPIONATE) 100 mg/mL injection Inject 1 mL (100 mg total) into the appropriate muscle. Active wheat dextrin 3000 mg powder for oral solution (20 sources) Start: 01-29-2025 take 3 g by mouth in the morning BENEFIBER SUGAR FREE, DEXTRIN, 3 gram/4 gram powder take 3 (THREE) grams BY MOUTH IN THE MORNING 152 g 5 01/29/2025 Active Start: 01-28-2025 End: 01-29-2025 take 3 g by mouth in the morning wheat dextrin (BENEFIBER SUGAR FREE, DEXTRIN,) 3 gram/3.8 gram powder Take 3 g by mouth in the morning. 144 g 5 01/28/2025 01/29/2025 Discontinued Start: 09-13-2024 End: 01-26-2025 take 3 g by mouth in the morning wheat dextrin (BENEFIBER SUGAR FREE, DEXTRIN,) 3 gram/3.8 gram powder Take 3 g by mouth in the morning. 144 g 5 12/31/2024 01/26/2025 Discontinued (Reorder) Completed/Discontinued Medications Medication Drug Class(es) Dates Sig (Normalized) Sig (Original) amitriptyline hydrochloride 10 mg oral tablet (8 sources) Tricyclic Antidepressant Start: 10-15-2024 End: 12-10-2024 take 1 tablet by mouth once daily amitriptyline (ELAVIL) 10 mg tablet Take 1 tablet (10 mg total) by mouth nightly. 30 tablet 1 10/15/2024 12/10/2024 Discontinued (Patient Stopped On Own) Start: 06-11-2023 End: 12-09-2023 take 1 tablet by mouth once daily amitriptyline (ELAVIL) 25 mg tablet take 1 tablet by mouth once daily 30 tablet 1 06/11/2023 12/09/2023 Discontinued (Therapy completed) Start: 08-19-2019 End: 03-03-2024 take 50 mg by mouth once daily Amitriptyline Discontin ued 50 MG PO Daily August 19, 2019 1:00am March 03, 2024 11:08am Amitriptyline HC l Active calcium polycarbophil 625 mg oral tablet (4 sources) Start: 03-15-2024 End: 09-11-2024 take 1 tablet by mouth in the morning, then take 1 tablet by mouth at bedtime polycarbophil (FIBERCON) 625 mg tablet Take 1 tablet (625 mg total) by mouth in the morning and 1 tablet (625 mg total) before bedtime. 60 tablet 2 03/15/2024 09/11/2024 Discontinued (Ineffective) gabapentin 300 mg oral capsule (1 source) Anti-epileptic Agent Start: 01-24-2023 End: 12-09-2023 take 1 capsule by mouth three times daily gabapentin (NEURONTIN) 300 mg capsule Take 1 capsule (300 mg total) by mouth 3 (three) times a day. 01/24/2023 12/09/2023 Discontinued (Therapy completed) hydrocortisone 25 mg/ml topical cream (11 sources) Corticosteroid Start: 03-19-2024 End: 12-10-2024 hydrocortisone (ANUSOL-HC) 2.5 % rectal cream Indications: Rectal fissure Insert 1 Application into the rectum in the morning and 1 Application before bedtime. 30 g 03/19/2024 12/10/2024 Discontinued (Therapy completed) hydrocortisone acetate 5 mg/ml / lidocaine hydrochloride 30 mg/ml rectal cream (12 sources) Antiarrhythmic, Corticosteroid, Amide Local Anesthetic Start: 03-16-2024 End: 12-10-2024 lidocaine HCl-hydrocortison ac 3-0.5 % cream Insert 1 Application into the rectum 2 (two) times a day as needed (pain). 7 g 1 03/16/2024 12/10/2024 Discontinued (Dose adjustment) hyoscyamine sulfate 0.125 mg sublingual tablet (4 sources) Start: 03-15-2024 End: 09-11-2024 take 1 tablet by mouth every four hours as needed hyoscyamine (LEVSIN/SL) 0.125 mg SL tablet Take 1 tablet (125 mcg total) by mouth every 4 (four) hours as needed for cramping. 30 tablet 1 03/15/2024 09/11/2024 Discontinued (Therapy completed) meloxicam 15 mg oral tablet (4 sources) Nonsteroidal Anti-inflammatory Drug Start: 03-15-2024 End: 09-11-2024 take 1 tablet by mouth once daily as needed for pain meloxicam (MOBIC) 15 mg tablet Take 1 tablet (15 mg total) by mouth daily as needed for pain (cramping). 30 tablet 2 03/15/2024 09/11/2024 Discontinued (Dose adjustment) omeprazole 20 mg delayed release oral capsule (7 sources) Proton Pump Inhibitor Start: 12-09-2023 End: 03-15-2024 take 1 capsule by mouth in the morning omeprazole (PriLOSEC) 20 mg capsule Take 1 capsule (20 mg total) by mouth in the morning. 30 capsule 1 12/09/2023 03/15/2024 Discontinued (Therapy completed) peg 3350-sod sulf,fxfs-qxt-crv 178.7-7.3-0.5 gram recon soln (1 source) Start: 02-13-2024 End: 02-14-2024 peg 3350-sod sulf,txoc-zzu-psg 178.7-7.3-0.5 gram recon soln Indications: Change in bowel habits Take one container twice as directed by scheduled instructions 2 each 02/13/2024 02/14/2024 Discontinued (Formulary change) psyllium 3400 mg powder for oral suspension (10 sources) Start: 09-11-2024 End: 12-10-2024 psyllium husk (MetamuciL) 3.4 gram/5.4 gram powder Take 3.4 g by mouth in the morning. 660 g 5 09/11/2024 12/10/2024 Discontinued (Therapy completed) sod sulf-pot chloride-mag sulf 1.479-0.188- 0.225 gram tablet (1 source) Start: 02-06-2024 End: 02-14-2024 sod sulf-pot chloride-mag sulf 1.479-0.188- 0.225 gram tablet Indications: Change in bowel habits Take 12 tablets twice a day as per instructions 24 tablet 02/06/2024 02/14/2024 Discontinued (Formulary change) sofosbuvir / velpatasvir (2 sources) Hepatitis C Virus NS5A Inhibitor, Hepatitis C Virus Nucleotide Analog NS5B Polymerase Inhibitor Epclusa Not-Taking Problems Active Problems Problem Classification Problem Date Documented Date Episodic/Chronic Abdominal pain (8 sources) Periumbilical pain; Translations: [Generalized abdominal pain] Onset: 03-26-20 Episodic Alcohol-related disorders (20 sources) Alcohol withdrawal delirium; Translations: [Delirium tremens] Onset: 03-09-20 21 03-09-2021 Chronic Anal and rectal conditions (3 sources) Anal fissure; Translations: [Anal fissure, unspecified] 03-15-2024 Episodic Anxiety disorders (20 sources) Anxiety; Translations: [Anxiety disorder, unspecified] Onset: 12-29-19 15 09-11-2024 Chronic Disorders of lipid metabolism (4 sources) Hypercholesterolemia 02-02-2024 Chronic Diverticulosis and diverticulitis (20 sources) Diverticulosis of large intestine without perforation or abscess without bleeding; Translations: [Diverticulosis of intestine, part unspecified, without perforation or abscess without bleeding] Onset: 10-17-19 20 02-17-2024 Chronic Esophageal disorders (1 source) Gastroesophageal reflux disease; Translations: [Gastro-esophageal reflux disease without esophagitis] 12-09-2023 Chronic Essential hypertension (20 sources) Hypertensive disorder; Translations: [Benign essential hypertension] Onset: 03-09-2002-02-2024 Chronic Fluid and electrolyte disorders (2 sources) Hyperkalemia; Translations: [Dehydration] Onset: 08-30-19 17 03-03-2024 Episodic Genitourinary symptoms and ill-defined conditions (8 sources) Acute retention of urine ; Translations: [Other retention of urine] Onset: 02-02-20 24 01-30-2024 Episodic Hepatitis (20 sources) Chronic hepatitis C; Translations: [Chronic viral hepatitis C] Onset: 03-09-2003-09-2021 Chronic Hepatitis (3 sources) Viral hepatitis C; Translations: [Unspecified viral hepatitis C without hepatic coma] 12-26-2024 Episodic Hyperplasia of prostate (4 sources) Benign prostatic hypertrophy without outflow obstruction; Translations: [Benign prostatic hyperplasia without lower urinary tract symptoms] Onset: 02-02-20 Chronic Miscellaneous mental health disorders (6 sources) Psychosomatic factor in physical condition; Translations: [Psychological and behavioral factors associated with disorders or diseases classified elsewhere] Onset: 01-10-20 Chronic Mood disorders (20 sources) Moderate recurrent major depression; Translations: [Major depressive disorder, recurrent, moderate] Onset: 03-09-20 Resolved : 02-18-20 23 03-09-2021 Chronic Other connective tissue disease (2 sources) Disorder of muscle; Translations: [Other specified disorders of muscle] Onset: 01-10-20 Episodic Other connective tissue disease (2 sources) Pelvic floor dysfunction 01-09-2025 Episodi c Other endocrine disorders (14 sources) Male hypogonadism; Translations: [Testicular hypofunction] Onset: 10-12-1912-10-2024 Chronic Other endocrine disorders (2 sources) Testicular hypofunction; Translations: [Testicular hypofunction] Onset: 12-11-19 Chronic Other gastrointestinal disorders (20 sources) Irritable bowel syndrome; Translations: [Mixed irritable bowel syndrome] Onset: 09-11-1909-11-2024 Chronic Other gastrointestinal disorders (20 sources) Chronic idiopathic constipation; Translations: [Chronic idiopathic constipation] Onset: 08-04-2008-04-2022 Chronic Other gastrointestinal disorders (1 source) Irritable bowel syndrome characterized by constipation; Translations: [Irritable bowel syndrome with constipation] 12-09-2023 Chronic Other gastrointestinal disorders (2 sources) Mixed irritable bowel syndrome; Translations: [Mixed irritable bowel syndrome] Onset: 09-11-19 Chronic Other gastrointestinal disorders (1 source) Acute constipation; Translations: [Constipation, unspecified] 03-03-2024 Episodic Other gastrointestinal disorders (3 sources) Increased frequency of defecation 02-07-2024 Episodic Other gastrointestinal disorders (2 sources) Constipation, unspecified; Translations: [Constipation, unspecified] Onset: 01-09-20 Episodic Other gastrointestinal disorders (2 sources) Constipation by outlet obstruction; Translations: [Outlet dysfunction constipation] Onset: 01-10-20 Episodic Other gastrointestinal disorders (2 sources) Swollen abdomen; Translations: [Abdominal distension (gaseous)] Onset: 01-10-20 Episodic Other gastrointestinal disorders (2 sources) Abdominal bloating 01-09-2025 Episodic Other gastrointestinal disorders (5 sources) Constipation; Translations: [Outlet dysfunction constipation] 01-09-2025 Episodic Other injuries and conditions due to external causes (4 sources) Injury of head 02-02-2024 Episodic Other nutritional; endocrine; and metabolic disorders (1 source) Body mass index (BMI) 33.0-33.9, adult; Translations: [BODY MASS INDEX BMI 33.0-33.9 ADULT] Onset: 03-29-20 Chronic Other nutritional; endocrine; and metabolic disorders (20 sources) Obesity caused by energy imbalance; Translations: [Class 1 obesity due to excess calories with serious comorbidity and body mass index (BMI) of 32.0 to 32.9 in adult] Onset: 08-04-2008-04-2022 Chronic Other nutritional; endocrine; and metabolic disorders (1 source) Iron overload; Translations: [Other disorders of iron metabolism] 12-10-2024 Chronic Other nutritional; endocrine; and metabolic disorders (2 sources) Other disorders of iron metabolism; Translations: [Other disorders of iron metabolism] Onset: 12-11-19 Chronic Other nutritional; endocrine; and metabolic disorders (3 sources) Overweight; Translations: [OVERWEIGHT] Onset: 03-29-20 Episodic Other nutritional; endocrine; and metabolic disorders (14 sources) Overweight; Translations: [Overweight] Onset: 12-11-1912-10-2024 Episodic Residual codes; unclassified (20 sources) Restlessness and agitation; Translations: [Restlessness and agitation] Onset: 03-07-2003-07-2021 Chronic Schizophrenia and other psychotic disorders (20 sources) Paranoid disorder; Translations: [Delusional disorders] Onset: 12-09-1908-03-2023 Chronic Screening and history of mental health and substance abuse codes (3 sources) Ex-smoker; Translations: [Personal history of nicotine dependence] Onset: 12-11-1912-10-2024 Episodic Substance-related disorders (20 sources) Nicotine dependence, cigarettes, uncomplicated; Translations: [Polysubstance abuse ] Onset: 03-29-2008-03-2023 Chronic Unclassified (2 sources) Unknown / UNK(Unknown) Onset: 08-30-19 Unclassified (3 sources) Patient encounter status 02-07-2024 Unclassified (1 source) change in bowel habits Onset: 02-17-20 Unclassified (18 sources) Hypogonadism; Translations: [Hypogonadism] Onset: 10-12-1908-04-2022 Unclassified (1 source) Annual Exam Onset: 12-11-19 Past or Other Problems Problem Classification Problem Date Documented Da te Episodic/Chronic Abdominal hernia (2 sources) Umbilical hernia; Translations: [Umbilical hernia without obstruction or gangrene] 03-15-2024 Episodic Acute and unspecified renal failure (4 sources) Acute kidney failure, unspecified; Translations: [ACUTE KIDNEY FAILURE, UNSPECIFIED] Onset: 08-30-2016 Episodic Immunizations and screening for infectious disease (2 sources) Contact with and (suspected) exposure to other viral communicable diseases Onset: 08-11-2021 Resolved: 09-01-2021 Episodic Mood disorders (20 sources) Mood disorders Onset: 03-15-2024 Resolved: 12-10-2024 03-15-2024 Other and unspecified benign neoplasm (20 sources) Polyp of sigmoid colon; Translations: [Polyp of colon] Onset: 10-17-2019 02-17-2024 Episodic Other and unspecified benign neoplasm (1 source) Polyp of colon; Translations: [Polyp of colon] 02-05-2024 Episodic Other connective tissue disease (1 source) Rhabdomyolysis; Translations: [RHABDOMYOLYSIS] Onset: 08-30-2016 Episodic Other connective tissue disease (20 sources) Non-traumatic rhabdomyolysis; Translations: [Rhabdomyolysis] Onset: 01-15-2018 01-15-2018 Episodic Other connective tissue disease (20 sources) Internal impingement of right shoulder; Translations: [Impingement syndrome of right shoulder] Onset: 12-29-2015 08-04-2022 Episodic Other gastrointestinal disorders (1 source) Change in bowel habit; Translations: [Change in bowel habit] Onset: 02-06-2024 Episodic Other gastrointestinal disorders (20 sources) Altered bowel function; Translations: [Change in bowel habit] Onset: 02-06-2024 02-06-2024 Episodic Other injuries and conditions due to external causes (20 sources) Compartment syndrome; Translations: [Traumatic compartment syndrome of unspecified upper extremity, initial encounter] Onset: 12-29-2015 08-04-2022 Episodic Other screening for suspected conditions (not mental disorders or infectious disease) (20 sources) Patient encounter status; Translations: [Encounter for screening for malignant neoplasm of prostate] Onset: 10-12-2019 Resolved: 10-17-2019 09-11-2024 Episodic Residual codes; unclassified (20 sources) Persistent insomnia; Translations: [Insomnia, unspecified] Onset: 02-17-2023 02-17-2023 Episodic Respiratory failure; insufficiency; arrest (adult) (20 sources) Acute hypoxemic respiratory failure; Translations: [Acute respiratory failure with hypoxia] Onset: 03-04-2021 03-09-2021 Episodic Substance-related disorders (1 source) Benzodiazepine withdrawal; Translations: [Sedative, hypnotic or anxiolytic use, unspecified with withdrawal, uncomplicated] 12-09-2023 Episodic Viral infection (20 sources) Disease caused by 2019-nCoV; Translations: [COVID-19] Onset: 09-06-2021 08-04-2022 Episodic Viral infection (1 source) COVID-19 Onset: 09-01-2021 Resolved: 09-01-2021 Results Test Name Value Interpretation Reference Range Facility Ambulatory Visit Summaryon 0 01-24-2025 Ambulatory Visit Summary Ambulatory Visit Summary CHAI RUSSELL :1970 Visit Date:01/24/2025 Ambulatory Visit Instructions Your Diagnosis Constipation Constipation by outlet dysfunction Pelvic floor dysfunction Bloating Stress-related physiological response affecting medical condition Drug dependence Your Care Team Attending Physician - Vivian Brady MD Primary Care Physician - CISCO BLANC DO This Is Your Medications List plecanatide (Trulance 3 mg oral tablet) Contact prescribing physician if questions or concerns Patient Specific Meds (Enclomifene) amlodipine (amLODIPine 5 mg Tab) anastrozole clonidine (cloNIDine 0.1 mg tab) metoprolol (Lopressor 25 mg oral tablet) nitrofurantoin (nitrofurantoin macrocrystals-monoh ydrate 100 mg Cap) polyethylene glycol 3350 (Miralax 3350 17 gram packet) senna (Senna 8.6 mg oral tablet) testosterone Procedures Performed Appendectomy, Colonoscopy. Discharge Vitals Heart Rate (Peripheral) 98 Blood Pressure 169/103 Height 68 in Height 173 cm Weight 190.259 lb Weight 86.3 kg BMI 28.83 What to do next Scheduled Follow-Up Appointments 2024 10:45 AM EDT With: Vivian Brady MD Where: [facility] [address] [place] [address]- Medications What How Much When Why Instructions New plecanatide (Trulance 3 mg oral tablet) 1 Tablets By Mouth Every day Constipation Constipation by outlet dysfunction Pelvic floor dysfunction Bloating Stress-related physiological response affecting medical condition Drug dependence Refills: 4 Pickup at [facility] Unchanged amlodipine (amLODIPine 5 mg Tab) Contact prescribing physician if questions or concerns Unchanged anastrozole By Mouth Every day Contact prescribing physician if questions or concerns Unchanged clonidine (cloNIDine 0.1 mg tab) Contact prescribing physician if questions or concerns Unchanged metoprolol (Lopressor 25 mg oral tablet) 1 Tablets By Mouth Every day Contact prescribing physician if questions or concerns Unchanged nitrofurantoin (nitrofurantoin macrocrystals-monoh ydrate 100 mg Cap) Contact prescribing physician if questions or concerns Unchanged Patient Specific Meds (Enclomifene) Contact prescribing physician if questions or concerns Unchanged polyethylene glycol 3350 (Miralax 3350 17 gram packet) 17 Gram By Mouth Every day Contact prescribing physician if questions or concerns Unchanged senna (Senna 8.6 mg oral tablet) 2 Tablets By Mouth Once a day (at bedtime) as needed for for constipation Contact prescribing physician if questions or concerns Unchanged testosterone Contact prescribing physician if questions or concerns Pharmacy Information [id number]: [address] [place], [place] [id number] [phone] Allergies No Known Medication Allergies Problems Ongoing - Any problem that you are currently receiving treatment for. Bloating BPH (benign prostatic hyperplasia) Constipation Constipation by outlet dysfunction Drug dependence Frequent bowel movements Head injury High cholesterol HTN (hypertension) Pelvic floor dysfunction Prostate cancer screening Stress-related physiological response affecting medical condition Urinary retention Patient Survey You may receive a survey via text or e-mail asking about your office visit. Please share your experience with us by completing your survey. We appreciate your feedback and thank you for choosing us for your care. Normal [facility] Gastroenterology Office/Clin ic Noteon 01-24-2025 Gastroenterology Office/Clinic Note Gastroenterology Office/Clinic Note Chief Complaint constipation- We referred patient to [facility] states that he called [facility] back and they refused to see him. HPI Staff Established patient is a(n) 54 year old male who presents today for a(n) 1 month follow-up. c/o constipation Pt wants to discuss referral to GI Psychology. He states he received a call from [facility] but he doesn't think they are going to do the testing or prescribe the medications he needs. Wants to see someone who can do pelvic floor therapy, Botox injections or prescribe Valium suppositories or benzo's to help with the anxiety/tight rectal sphincter. States that rectal cream that was prescribed from [facility] was not able to be used because it's for topical use only and his problem is inside . Any blood thinners? no Any GLP-1 agonists? no Last visit 01/09/25 w/Dr. Brady: History of Present Illness PT with issues with bowels x 2 years lots of bloating hard to pass the stool could be constipation or diarrhea could have cramping lots of anxiety and stress stool is thin and long pt tried miralax on daily basis also with anxiety was tried to be put on neuromodulators and it did not work alprazolam helped before Assessment/Plan 1. Constipation (K59.00: Constipation, unspecified) 2. Constipation by outlet dysfunction (K59.02: Outlet dysfunction constipation) 3. Pelvic floor dysfunction (M62.89: Other specified disorders of muscle) 4. Bloating (R14.0: Abdominal distension (gaseous)) 5. Stress-related physiological response affecting medical condition (F54: Psychological and behavioral factors associated with disorders or diseases classified elsewhere) Patient with prolonged history of stress and anxiety and was on benzos for 15 years in the past. He is having issues with his bowel movements which is likely secondary to pelvic floor dysfunction from stress. Patient was seen by psychiatry in the past and this did not help him. Will refer to GI psychology at [facility] Advised to use squatty potty and massage the colon Advised to eat prunes and kiwi fruit Advised to use miralax/senna and titrate to have 1-[address] abd/pelv 09/05/24 IMPRESSION: 1. No bowel obstruction. 2. Periumbilical subcutaneous stranding, which is nonspecific and may represent localized cellulitis. No abscess. 3. Stable small umbilical hernia containing fat. Colonoscopy 02/17/24 Final Pathologic Diagnosis 1. Colon polyp 55cm: Hyperplastic polyp. 2. Colon polyp 35cm: Tubular adenoma. Labs 12/10/24 WBC COUNT 5.2 RBC COUNT 5.04 HEMOGLOBIN 16.1 HEMATOCRIT 48.2 MCV 96 MCH 31.9 MCHC 33.4 RDW 13.5 PLATELET COUNT 184 MPV 9.6 CALCIUM 9.6 TOTAL PROTEIN 7.4 ALBUMIN 4.5 ALKALINE PHOSPHATASE 101 AST 28 ALT 38 BILIRUBIN,TOTAL 0.6 IRON 184 History of Present Illness I have reviewed HPI staff note, most recent labs and imaging, I agree with the above documentation with the following additions/exception s : still with constipation drinks mg citrate every 2-3 days could not see a provider at [facility] Review of Systems PHQ Score Initial Depression Screen Score: 0 SCORE All systems reviewed, negative except as mentioned above Physical Exam Vitals & Measurements HR: 98(Peripheral) BP: 163/116 HT: 173 cm HT: 68 in WT: 86.3 kg WT: 190.259 lb BMI: 28.83 General: alert, no acute distress HEENT: atraumatic normocephalic Cardiovascular: regular rate and rhythm, normal peripheral perfusion Respiratory: Lungs CTA, respirations non labored Extremities: no deformity, no trauma Abdomen: Benign, soft, nontender nondistended Assessment/Plan 1. Constipation (K59.00: Constipation, unspecified) Ordered: plecanatide, 3 mg = 1 tab(s), Oral, Daily, # 30 tab(s), Refills(s) 4, Pharmacy: [id number], 173, cm, 01/24/25 10:35:00 EDT, Height/Length Dosing, 86.3, kg, 01/24/25 10:35:00 EDT, Weight Dosing 2. Constipation by outlet dysfunction (K59.02: Outlet dysfunction constipation) Ordered: plecanatide, 3 mg = 1 tab(s), Oral, Daily, # 30 tab(s), Refills(s) 4, Pharmacy: [id number], 173, cm, 01/24/25 10:35:00 EDT, Height/Length Dosing, 86.3, kg, 01/24/25 10:35:00 EDT, Weight Dosing 3. Pelvic floor dysfunction (M62.89: Other specified disorders of muscle) Ordered: plecanatide, 3 mg = 1 tab(s), Oral, Daily, # 30 tab(s), Refills(s) 4, Pharmacy: [id number], 173, cm, 01/24/25 10:35:00 EDT, Height/Length Dosing, 86.3, kg, 01/24/25 10:35:00 EDT, Weight Dosing 4. Bloating (R14.0: Abdominal distension (gaseous)) Ordered: plecanatide, 3 mg = 1 tab(s), Oral, Daily, # 30 tab(s), Refills(s) 4, Pharmacy: [id number], 173, cm, 01/24/25 10:35:00 EDT, Height/Length Dosing, 86.3, kg, 01/24/25 10:35:00 EDT, Weight Dosing 5. Stress-related physiological response affecting medical condition (F54: Psychological and behavioral factors associated with disorders or diseases classified elsewhere) Ordered: (more content not included)... Normal [facility] Comment on above: Result Comment: Elec tronically Signed By: Caitlyn CHAVIS, Vivian Lance\.br\Date and Time Signed: 01/24/25 10:46 EDT Ambulatory Visit Summaryon 0 01-09-2025 Ambulatory Visit Summary Ambulatory Visit Summary CHAI RUSSELL :1970 Visit Date:01/09/2025 Ambulatory Visit Instructions Your Diagnosis Constipation Constipation by outlet dysfunction Pelvic floor dysfunction Bloating Stress-related physiological response affecting medical condition Your Care Team Attending Physician - Vivian Brady MD Primary Care Physician - CISCO BLANC DO This Is Your Medications List Contact prescribing physician if questions or concerns Patient Specific Meds (Enclomifene) amlodipine (amLODIPine 5 mg Tab) anastrozole clonidine (cloNIDine 0.1 mg tab) metoprolol (Lopressor 25 mg oral tablet) nitrofurantoin (nitrofurantoin macrocrystals-monoh ydrate 100 mg Cap) testosterone Procedures Performed Appendectomy, Colonoscopy. Discharge Vitals Heart Rate (Peripheral) 80 Blood Pressure 174/109 Height 68 in Height 173 cm Weight 200.4 lb Weight 90.9 kg BMI 30.37 What to do next Someone Will Contact You Regarding These Appointments [facility] External Ambulatory Referral, Gastroenterology, 01/09/25 13:16:00 EDT, Constipation by outlet dysfunction Stress-related physiological response affecting medical condition Medications What How Much When Instructions Unchanged amlodipine (amLODIPine 5 mg Tab) Contact prescribing physician if questions or concerns Unchanged anastrozole By Mouth Every day Contact prescribing physician if questions or concerns Unchanged clonidine (cloNIDine 0.1 mg tab) Contact prescribing physician if questions or concerns Unchanged metoprolol (Lopressor 25 mg oral tablet) 1 Tablets By Mouth Every day Contact prescribing physician if questions or concerns Unchanged nitrofurantoin (nitrofurantoin macrocrystals-monoh ydrate 100 mg Cap) Contact prescribing physician if questions or concerns Unchanged Patient Specific Meds (Enclomifene) Contact prescribing physician if questions or concerns Unchanged testosterone Contact prescribing physician if questions or concerns Allergies No Known Medication Allergies Problems Ongoing - Any problem that you are currently receiving treatment for. Bloating BPH (benign prostatic hyperplasia) Constipation by outlet dysfunction Drug dependence Frequent bowel movements Head injury High cholesterol HTN (hypertension) Pelvic floor dysfunction Prostate cancer screening Stress-related physiological response affecting medical condition Urinary retention Patient Survey You may receive a survey via text or e-mail asking about your office visit. Please share your experience with us by completing your survey. We appreciate your feedback and thank you for choosing us for your care. Normal [facility] Gastroenterology Office/Clin ic Noteon 01-09-2025 Gastroenterology Office/Clinic Note Gastroenterology Office/Clinic Note Chief Complaint Alternating bowels, bloating severe cramping and anxiety HPI Staff NEW, 54 year old male who presents today for a referral by Dr Blanc for complaints of IBS with a change in bowel habits, bloating, severe cramping and anxiety. Denies Blood Thinners Denies GLP-1 Agonists Denies any family history of colon cancer/polyps or IBD Denies Dysphagia or bloody stools. Has trouble belching. Constipation: How many BM a day or a week: Constant? Or alternate with normal BM or diarrhea: alternates What treatment have you tried before: Fiber, docusate, miralax, Linzess 72mcg, mag citrate CT abd/pelv 09/05/24 IMPRESSION: 1. No bowel obstruction. 2. Periumbilical subcutaneous stranding, which is nonspecific and may represent localized cellulitis. No abscess. 3. Stable small umbilical hernia containing fat. Colonoscopy 02/17/24 Final Pathologic Diagnosis 1. Colon polyp 55cm: Hyperplastic polyp. 2. Colon polyp 35cm: Tubular adenoma. Labs 12/10/24 WBC COUNT 5.2 RBC COUNT 5.04 HEMOGLOBIN 16.1 HEMATOCRIT 48.2 MCV 96 MCH 31.9 MCHC 33.4 RDW 13.5 PLATELET COUNT 184 MPV 9.6 CALCIUM 9.6 TOTAL PROTEIN 7.4 ALBUMIN 4.5 ALKALINE PHOSPHATASE 101 AST 28 ALT 38 BILIRUBIN,TOTAL 0.6 IRON 184 History of Present Illness I have reviewed HPI staff note, most recent labs and imaging, I agree with the above documentation with the following additions/exception s : PT with issues with bowels x 2 years lots of bloating hard to pass the stool could be constipation or diarrhea could have cramping lots of anxiety and stress stool is thin and long pt tried miralax on daily basis also with anxiety was tried to be put on neuromodulators and it did not work alprazolam helped before Review of Systems PHQ Score Initial Depression Screen Score: 0 SCORE All systems reviewed, negative except as mentioned above Physical Exam Vitals & Measurements HR: 80(Peripheral) BP: 174/109 HT: 68 in HT: 173 cm WT: 200.4 lb WT: 90.9 kg BMI: 30.37 General: alert, no acute distress HEENT: atraumatic normocephalic Cardiovascular: regular rate and rhythm, normal peripheral perfusion Respiratory: Lungs CTA, respirations non labored Extremities: no deformity, no trauma Abdomen: Benign, soft, tender nondistended FISH: spastic anal tone, decreased squeeze pressure Assessment/Plan 1. Constipation (K59.00: Constipation, unspecified) Ordered: Current tobacco non-user 1036F Most recent diastolic blood pressure >=90 mm Hg 3080F Most recent systolic blood pressure >= 140 mm Hg 3077F 2. Constipation by outlet dysfunction (K59.02: Outlet dysfunction constipation) 3. Pelvic floor dysfunction (M62.89: Other specified disorders of muscle) 4. Bloating (R14.0: Abdominal distension (gaseous)) 5. Stress-related physiological response affecting medical condition (F54: Psychological and behavioral factors associated with disorders or diseases classified elsewhere) Patient with prolonged history of stress and anxiety and was on benzos for 15 years in the past. He is having issues with his bowel movements which is likely secondary to pelvic floor dysfunction from stress. Patient was seen by psychiatry in the past and this did not help him. Will refer to GI psychology at [facility] Advised to use squatty potty and massage the colon Advised to eat prunes and kiwi fruit Advised to use miralax/senna and titrate to have 1-2 BM daily Follow-up No qualifying data available Problem List/Past Medical History Ongoing Bloating BPH (benign prostatic hyperplasia) Constipation by outlet dysfunction Drug dependence Frequent bowel movements Head injury High cholesterol HTN (hypertension) Pelvic floor dysfunction Prostate cancer screening Stress-related physiological response affecting medical condition Urinary retention Historical No qualifying data Procedure/Surgical History Appendectomy, Colonoscopy. Medications amLODIPine 5 mg Tab anastrozole, Oral, Daily cloNIDine 0.1 mg tab Enclomifene Lopressor 25 mg oral tablet, 25 mg= 1 tab(s), Oral, Daily nitrofurantoin macrocrystals-monoh ydrate 100 mg Cap testosterone Allergies No Known Medication Allergies Social History Alcohol Past. Beer. 1-2 times per month., 01/04/2025 Substance Abuse Current. benzodiazepine. 1-2 times per month. Previous treatment: Treatment center, Inpatient, Outpatient., 01/04/2025 Tobacco Former smoker, quit more than 30 days ago Tobacco Use:. Never Smokeless Tobacco Use:. Cigarettes, 01/09/2025 Family History Drug dependence: Mother and Father. Hypertension: Mother. Immunizations Vaccine Date Status influenza virus vaccine, inactivated 06/20/2021 Recorded SARS-CoV-2 (COVID-19) mRNA BNT-162b2 vax 06/20/2021 Recorded SARS-CoV-2 (COVID-19) mRNA BNT-162b2 vax 12/08/2020 Recorded SARS-CoV-2 (COVID-19) mRNA BNT-162b2 vax 11/18/2020 Recorded (more content not included)... Normal [facility] Comment on above: Result Comment: Elec tronically Signed By: Caitlyn CHAVIS, Vivian Lance\.br\Date and Time Signed: 01/09/25 13:17 EDT COMPLETE BLOOD COUNTon 12-10 Erythrocyte distribution width (RBC) [Ratio] 13.5 % Normal 11.5-15.0 [facility] Comment on above: Performed By: #### C ALEXANDRIA CRANDALL, 2498-4, 31001-9, 2857-1, TSHR #### [facility] ([id number]) [address], [address] [place] [address] Hematocrit (Bld) [Volume fraction] 48.2 % Normal 39-49 [facility] Comment on above: Performed By: #### C ALEXANDRIA CRANDALL, 2498-4, 68205-6, 2857-1, TSHR #### [facility] ([id number]) [address], [address] [place] [address] Hemoglobin (Bld) [Mass/Vol] 16.1 g/dL Normal 13.0-17.0 [facility] Comment on above: Performed By: #### C BC, CMP, 2498-4, 38582-0, 2857-1, TSHR #### [facility] ([id number]) [address], [address] [place] [address] MCH (RBC) [Entitic mass] 31.9 pg Normal 27-34 [facility] Comment on above: Performed By: #### C BC, CMP, 2498-4, 32709-2, 2857-1, TSHR #### [facility] ([id number]) [address], [facility] [address] [place] [address] MCHC (RBC) [Mass/Vol] 33.4 g/dL Normal 32-36 [facility] Comment on above: Performed By: #### C BC, CMP, 2498-4, 05978-4, 2857-1, TSHR #### [facility] ([id number]) [address], [address] [place] [address] MCV (RBC) [Entitic vol] 96 fL Normal 80-100 [facility] Comment on above: Performed By: #### C BC, CMP, 2498-4, 04903-6, 2857-1, TSHR #### [facility] ([id number]) [address], [address] [place] [address] Platelet mean volume (Bld) [Entitic vol] 9.6 fL Normal 7-12 [facility] Comment on above: Performed By: #### C BC, CMP, 2498-4, 93570-6, 2857-1, TSHR #### [facility] ([id number]) [address], [address] [place] [address] Platelets (Bld) [#/Vol] 184 10*3/uL Normal 150-450 [facility] Comment on above: Performed By: #### C BC, CMP, 2498-4, 26161-5, 2857-1, TSHR #### [facility] ([id number]) [address], [address] [place] [address] RBC COUNT 5.04 X10E12/L Normal 4.10-5.70 [facility] Comment on above: Performed By: #### C BC, CMP, 2498-4, 72661-3, 2857-1, TSHR #### [facility] ([id number]) [address], [address] [place] [address] WBC (Bld) [#/Vol] 5.2 10*3/uL Normal 4.0-11.0 [facility] Comment on above: Performed By: #### C BC, CMP, 2498-4, 05585-3, 2857-1, TSHR #### [facility] ([id number]) [address], [address] [place] [address] COMPREHENSIVE METABOLIC PANE Vern 12-10-2024 Albumin [Mass/Vol] 4.5 g/dL Normal 3.2-5.3 [facility] Comment on above: Performed By: #### C BC, CMP, 2498-4, 07051-5, 2857-1, TSHR #### [facility] ([id number]) [address], [address] [place] [address] ALP [Catalytic activity/Vol] 101 U/L Normal 39-130 [facility] Comment on above: Performed By: #### C BC, CMP, 2498-4, 06055-4, 2857-1, TSHR #### [facility] ([id number]) [address], [address] [place] [address] ALT [Catalytic activity/Vol] 38 U/L Normal 0-40 [facility] Comment on above: Performed By: #### C BC, CMP, 2498-4, 55241-9, 2857-1, TSHR #### [facility] ([id number]) [address], [address] [place] [address] Anion gap [Moles/Vol] 11 mmol/L Normal 5-15 [facility] Comment on above: Performed By: #### C BC, CMP, 2498-4, 81772-5, 2857-1, TSHR #### [facility] ([id number]) [address], [address] [place] [address] AST [Catalytic activity/Vol] 28 U/L Normal 0-41 [facility] Comment on above: Performed By: #### C BC, CMP, 2498-4, 67336-5, 2857-1, TSHR #### [facility] ([id number]) [address], [address] [place] [address] Bilirubin [Mass/Vol] 0.6 mg/dL Normal 0.3-1.2 [facility] Comment on above: Performed By: #### C BC, CMP, 2498-4, 70837-2, 2857-1, TSHR #### [facility] ([id number]) [address], [address] [place] [address] Calcium [Mass/Vol] 9.6 mg/dL Normal 8.5-10.5 [facility] Comment on above: Performed By: #### Remberto BC, CMP, 2498-4, 03599-1, 2857-1, TSHR #### [facility] ([id number]) [address], [address] [place] [address] Chloride [Moles/Vol] 105 mmol/L Normal 98-109 [facility] Comment on above: Performed By: #### C BC, CMP, 2498-4, 52187-4, 2857-1, TSHR #### [facility] ([id number]) [address], [address] [place] [address] CO2 [Moles/Vol] 26 mmol/L Normal 22-32 [facility] Comment on above: Performed By: #### C BC, CMP, 2498-4, 96717-7, 2857-1, TSHR #### [facility] ([id number]) [address], [address] [place] [address] Creatinine [Mass/Vol] 0.94 mg/dL Normal 0.60-1.30 [facility] Comment on above: Result Comment: METH OD TRACEABLE TO IDMS STANDARD Performed By: #### C BC, CMP, 2498-4, 18031-3, 2857-1, TSHR #### [facility] ([id number]) [address] [address] eGFR (CKD-EPI) NON-RACE DEPENDENT >90 Normal >59 [facility] Comment on above: Result Comment: Reported eGFR is based on the CKD-EPI 2020 equation that does not use a race coefficient. Performed By: #### C BC, CMP, 2498-4, 09773-4, 2857-1, TSHR #### [facility] ([id number]) [address], [address] [place] [address] Glucose [Mass/Vol] 86 mg/dL Normal 65-99 [facility] Comment on above: Performed By: #### C BC, CMP, 2498-4, 10734-4, 2857-1, TSHR #### [facility] ([id number]) [address] [place] [address] Potassium [Moles/Vol] 4.2 mmol/L Normal 3.5-5.0 [facility] Comment on above: Performed By: #### C BC, CMP, 2498-4, 78893-0, 2857-1, TSHR #### [facility] ([id number]) [address], [address] [place] [address] Protein [Mass/Vol] 7.4 g/dL Normal 6.0-8.0 [facility] Comment on above: Performed By: #### C BC, CMP, 2498-4, 40453-2, 2857-1, TSHR #### [facility] ([id number]) [address], [address] [place] [address] Sodium [Moles/Vol] 142 mmol/L Normal 134-146 [facility] Comment on above: Performed By: #### C BC, CMP, 2498-4, 73475-5, 2857-1, TSHR #### [facility] ([id number]) [address], [address] [place] [address] Urea nitrogen [Mass/Vol] 13 mg/dL Normal 5-23 [facility] Comment on above: Performed By: #### Remberto BC, CMP, 2498-4, 81691-5, 2857-1, TSHR #### [facility] ([id number]) [address], [address] [place] [address] IRONon 12-10-2024 Iron [Mass/Vol] 184 ug/dL Normal 50-212 [facility] Comment on above: Performed By: #### C BC, CMP, 2498-4, 52496-3, 2857-1, TSHR #### [facility] ([id number]) [address], [address] [place] [address] Lipid 1996 panelon Cholesterol [Mass/Vol] 183 mg/dL Normal 150-200 [facility] Comment on above: Performed By: #### C BC, CMP, 2498-4, 29717-0, 2857-1, TSHR #### [facility] ([id number]) [address], [address] [place] [address] Cholesterol in HDL [Mass/Vol] 38 mg/dL Low >39 [facility] Comment on above: Result Comment: HDL <40 mg/dL - High Risk HDL > or = 40mg/dL- Desirable HDL >60 mg/dL - Negative Risk Performed By: #### Remberto BC, CMP, 2498-4, 97964-8, 2857-1, TSHR #### [facility] ([id number]) [address], [address] [place] [address] Cholesterol in LDL [Mass/Vol] 121 mg/dL Normal <130 [facility] Comment on above: Result Comment: LDL <100 mg/dL - Desirable LDL >160 mg/dL - High Risk Performed By: #### Remberto BC, CMP, 2498-4, 34397-9, 2857-1, TSHR #### [facility] ([id number]) [address], [address] [place] [address] Cholesterol in VLDL [Mass/Vol] 24 mg/dL Normal 0-30 [facility] Comment on above: Performed By: #### Remberto BC, CMP, 2498-4, 33741-6, 2857-1, TSHR #### [facility] ([id number]) [address], [address] [place] [address] CHOLESTEROL:HDL 4.8 Normal 1.0-5.0 [facility] Comment on above: Performed By: ###Oseas Sr BC, CMP, 2498-4, 64109-2, 2857-1, TSHR #### [facility] ([id number]) [address], [address] [place] [address] Triglyceride [Mass/Vol] 119 mg/dL Normal 27-150 [facility] Comment on above: Performed By: #### Remberto BC, CMP, 2498-4, 24541-2, 2857-1, TSHR #### [facility] ([id number]) [address] [address] Prostate specific Ag [Mass/V ol]on 12-10-2024 PSA SCREEN 0.57 ng/mL Normal 0.00-4.00 [facility] Comment on above: Result Comment: The method used for this test is Graciela [place] DXI chemiluminescent immunoassay. Values obtained by different assay methods cannot be used interchangeably. Performed By: #### C BC, CMP, 2498-4, 44171-3, 2857-1, TSHR #### [facility] ([id number]) [address] [address] TSH WITH REFLEXon 12-10-2024 TSH 1.34 uIU/mL Normal 0.49-4.67 [facility] Comment on above: Performed By: #### C BC, CMP, 2498-4, 02992-2, 2857-1, TSHR #### [facility] ([id number]) [address] [address] COMPLETE BLOOD COUNTon 09-11 Erythrocyte distribution width (RBC) [Ratio] 13.4 % Normal 11.5-15.0 [facility] Comment on above: Performed By: #### C BC, CMP, 2857-1, TSHR #### [facility] ([id number]) [address] [address] Hematocrit (Bld) [Volume fraction] 47.4 % Normal 39-49 [facility] Comment on above: Performed By: #### C BC, CMP, 2857-1, TSHR #### [facility] ([id number]) [address] [address] Hemoglobin (Bld) [Mass/Vol] 16.4 g/dL Normal 13.0-17.0 [facility] Comment on above: Performed By: #### C BC, CMP, 2857-1, TSHR #### [facility] ([id number]) [address], [address] [place] [address] MCH (RBC) [Entitic mass] 32.4 pg Normal 27-34 [facility] Comment on above: Performed By: #### C BC, CMP, 2857-1, TSHR #### [facility] ([id number]) [address], [address] [place] [address] MCHC (RBC) [Mass/Vol] 34.6 g/dL Normal 32-36 [facility] Comment on above: Performed By: #### C BC, CMP, 2857-1, TSHR #### [facility] ([id number]) [address], [address] [place] [address] MCV (RBC) [Entitic vol] 94 fL Normal 80-100 [facility] Comment on above: Performed By: #### Rebmerto BC, CMP, 2857-1, TSHR #### [facility] ([id number]) [address], [address] [place] [address] Platelet mean volume (Bld) [Entitic vol] 9.4 fL Normal 7-12 [facility] Comment on above: Performed By: #### C BC, CMP, 2857-1, TSHR #### [facility] ([id number]) [address], [address] [place] [address] Platelets (Bld) [#/Vol] 235 10*3/uL Normal 150-450 [facility] Comment on above: Performed By: #### C BC, CMP, 2857-1, TSHR #### [facility] ([id number]) [address], [address] [place] [address] RBC COUNT 5.06 X10E12/L Normal 4.10-5.70 [facility] Comment on above: Performed By: #### C BC, CMP, 2857-1, TSHR #### [facility] ([id number]) [address], [address] [place] [address] WBC (Bld) [#/Vol] 7.0 10*3/uL Normal 4.0-11.0 [facility] Comment on above: Performed By: #### Remberto BC, CMP, 2857-1, TSHR #### [facility] ([id number]) [address], [address] [place] [address] COMPREHENSIVE METABOLIC PANE Vern 09-11-2024 Albumin [Mass/Vol] 4.5 g/dL Normal 3.2-5.3 [facility] Comment on above: Performed By: #### Remberto CRANDALL, CMP, 2857-1, TSHR #### [facility] ([id number]) [address], [address] [place] [address] ALP [Catalytic activity/Vol] 133 U/L High 39-130 [facility] Comment on above: Performed By: #### Remberto BC, CMP, 2857-1, TSHR #### [facility] ([id number]) [address], [address] [place] [address] ALT [Catalytic activity/Vol] 20 U/L Normal 0-40 [facility] Comment on above: Performed By: #### Remberto CRANDALL, CMP, 2857-1, TSHR #### [facility] ([id number]) [address], [address] [place] [address] Anion gap [Moles/Vol] 10 mmol/L Normal 5-15 [facility] Comment on above: Performed By: #### Remberto BC, CMP, 2857-1, TSHR #### [facility] ([id number]) [address], [address] [place] [address] AST [Catalytic activity/Vol] 26 U/L Normal 0-41 [facility] Comment on above: Performed By: #### Remberto BC, CMP, 2857-1, TSHR #### [facility] ([id number]) [address], [address] [place] [address] Bilirubin [Mass/Vol] 0.8 mg/dL Normal 0.3-1.2 [facility] Comment on above: Performed By: #### Remberto CRANDALL, CMP, 2857-1, TSHR #### [facility] ([id number]) [address], [address] [place] [address] Calcium [Mass/Vol] 9.6 mg/dL Normal 8.5-10.5 [facility] Comment on above: Performed By: #### Remberto CRANDALL, CMP, 2857-1, TSHR #### [facility] ([id number]) [address], [address] [place] [address] Chloride [Moles/Vol] 103 mmol/L Normal 98-109 [facility] Comment on above: Performed By: #### Remberto CRANDALL, CMP, 2857-1, TSHR #### [facility] ([id number]) [address], [address] [place] [address] CO2 [Moles/Vol] 27 mmol/L Normal 22-32 [facility] Comment on above: Performed By: #### Remberto CRANDALL, CMP, 2857-1, TSHR #### [facility] ([id number]) [address], [address] [place] [address] Creatinine [Mass/Vol] 1.05 mg/dL Normal 0.60-1.30 [facility] Comment on above: Result Comment: METH OD TRACEABLE TO IDMS STANDARD Performed By: #### Remberto CRANDALL, CMP, 2857-1, TSHR #### [facility] ([id number]) [address], [address] [place] [address] GFR/1.73 sq M.predicted among non-blacks MDRD (S/P/Bld) [Vol rate/Area] 83 mL/min/{1.73_m2} Normal >59 [facility] Comment on above: Result Comment: Reported eGFR is based on the CKD-EPI 2020 equation that does not use a race coefficient. Performed By: #### Remberto CRANDALL CMP, 2857-1, TSHR #### [facility] ([id number]) [address], [address] [place] [address] Glucose [Mass/Vol] 87 mg/dL Normal 65-99 [facility] Comment on above: Performed By: #### Remberto CRANDALL CMP, 2857-1, TSHR #### [facility] ([id number]) [address], [address] [place] [address] Potassium [Moles/Vol] 3.9 mmol/L Normal 3.5-5.0 [facility] Comment on above: Performed By: #### Remberto CRANDALL CMP, 2857-1, TSHR #### [facility] ([id number]) [address], [address] [place] [address] Protein [Mass/Vol] 7.3 g/dL Normal 6.0-8.0 [facility] Comment on above: Performed By: #### Remberto CRANDALL CMP, 2857-1, TSHR #### [facility] ([id number]) [address], [address] [place] [address] Sodium [Moles/Vol] 140 mmol/L Normal 134-146 [facility] Comment on above: Performed By: #### Remberto CRANDALL CMP, 2857-1, TSHR #### [facility] ([id number]) [address], [address] [place] [address] Urea nitrogen [Mass/Vol] 6 mg/dL Normal 5-23 [facility] Comment on above: Performed By: #### Remberto CRANDALL CMP, 2857-1, TSHR #### [facility] ([id number]) [address], [address] [place] [address] Prostate specific Ag [Mass/V ol]on 09-11-2024 PSA SCREEN 0.71 ng/mL Normal 0.00-4.00 [facility] Comment on above: Result Comment: The method used for this test is Graciela [place] DXI chemiluminescent immunoassay. Values obtained by different assay methods cannot be used interchangeably. Performed By: #### C BC, CMP, 2857-1, TSHR #### [facility] ([id number]) [address], [address] [place] [address] TSH WITH REFLEXon 09-11-2024 TSH 1.29 uIU/mL Normal 0.49-4.67 [facility] Comment on above: Performed By: #### C BC, CMP, 2857-1, TSHR #### [facility] ([id number]) [address], [address] [place] [address] CBC AND AUTO DIFFon 05-15-20 ABSOLUTE BASOPHIL 0.1 X10E9/L Normal 0.0-0.2 [facility] Comment on above: Performed By: #### C ARASH, CMP, 3040-3, 02374-2 #### [facility] ([id number]) [address] [place] [address] ABSOLUTE NEUTROPHIL 5.7 X10E9/L Normal 1.5-6.6 [facility] Comment on above: Performed By: #### C ARASH, CMP, 3040-3, 92332-9 #### [facility] ([id number]) [address] [place] [address] Basophils/100 WBC (Bld) 0.7 % Normal [facility] Comment on above: Performed By: #### C BCA, CMP, 3040-3, 07916-7 #### [facility] ([id number]) [address] [place] [address] Eosinophils (Bld) [#/Vol] 0.4 10*3/uL Normal 0.0-0.4 [facility] Comment on above: Performed By: #### C ARASH, CMP, 3040-3, 57591-8 #### [facility] ([id number]) [address] [place] [address] Eosinophils/100 WBC (Bld) 4.9 % Normal [facility] Comment on above: Performed By: #### Remberto ANTOINE [facility], 0-3, 67675-5 #### [facility] ([id number]) [address] [place] [address] Erythrocyte distribution width (RBC) [Ratio] 12.3 % Normal 11.5-15.0 [facility] Comment on above: Performed By: #### C ARASH CMP, 0-3, 01467-7 #### [facility] ([id number]) [address] [place] [address] Hematocrit (Bld) [Volume fraction] 41.8 % Normal 39-49 [facility] Comment on above: Performed By: #### C ARASH [facility], 3, 88064-5 #### [facility] ([id number]) [address] [place] [address] Hemoglobin (Bld) [Mass/Vol] 15.1 g/dL Normal 13.0-17.0 [facility] Comment on above: Performed By: #### Remberto ANTOINE CMP, 3039-3, 71602-4 #### [facility] ([id number]) [address] [place] [address] Lymphocytes (Bld) [#/Vol] 1.4 10*3/uL Normal 1.0-3.5 [facility] Comment on above: Performed By: #### Remberto ANTOINE, CMP, 0-3, 21511-7 #### [facility] ([id number]) [address] [place] [address] Lymphocytes/100 WBC (Bld) 17.3 % Normal [facility] Comment on above: Performed By: #### C ARASH, CMP, 3040-3, 68490-7 #### [facility] ([id number]) [address] [place] [address] MCH (RBC) [Entitic mass] 32.3 pg Normal 27-34 [facility] Comment on above: Performed By: #### C ARASH, CMP, 0-3, 29270-3 #### [facility] ([id number]) [address] [place] [address] MCHC (RBC) [Mass/Vol] 36.0 g/dL Normal 32-36 [facility] Comment on above: Performed By: #### C ARASH, CMP, 3040-3, 63285-7 #### [facility] ([id number]) [address] [place] [address] MCV (RBC) [Entitic vol] 90 fL Normal 80-100 [facility] Comment on above: Performed By: #### C ARASH, CMP, 3040-3, 68939-7 #### [facility] ([id number]) [address] [place] [address] Monocytes (Bld) [#/Vol] 0.6 10*3/uL Normal 0-0.9 [facility] Comment on above: Performed By: #### Remberto ANTOINE, CMP, 0-3, 85167-9 #### [facility] ([id number]) [address] [place] [address] Monocytes/100 WBC (Bld) 7.6 % Normal [facility] Comment on above: Performed By: #### Remberto ANTOINE, CMP, 3040-3, 66960-6 #### [facility] ([id number]) [address] [place] [address] Neutrophils/100 WBC (Bld) 69.5 % Normal [facility] Comment on above: Performed By: #### C ARASH, CMP, 3040-3, 33115-8 #### [facility] ([id number]) [address] [place] [address] Platelet mean volume (Bld) [Entitic vol] 8.2 fL Normal 7-12 [facility] Comment on above: Performed By: #### C ARASH, CMP, 3040-3, 40836-1 #### [facility] ([id number]) [address] [place] [address] Platelets (Bld) [#/Vol] 254 10*3/uL Normal 150-450 [facility] Comment on above: Performed By: #### C ARASH, CMP, 3040-3, 65123-1 #### [facility] ([id number]) [address] [place] [address] RBC COUNT 4.66 X10E12/L Normal 4.10-5.70 [facility] Comment on above: Performed By: #### C ARASH, CMP, 3040-3, 88541-0 #### [facility] ([id number]) [address] [place] [address] WBC (Bld) [#/Vol] 8.1 10*3/uL Normal 4.0-11.0 [facility] Comment on above: Performed By: #### C BCA, CMP, 3040-3, 07126-9 #### [facility] ([id number]) [address] [place] [address] COMPREHENSIVE METABOLIC PANE Vern 05-15-2024 Albumin [Mass/Vol] 4.5 g/dL Normal 3.2-5.3 [facility] Comment on above: Performed By: #### Remberto BCA, CMP, 3040-3, 12283-4 #### [facility] ([id number]) [address] [place] [address] [place] [address] ALP [Catalytic activity/Vol] 105 U/L Normal 39-130 [facility] Comment on above: Performed By: #### C BCA, CMP, 3040-3, 80042-1 #### [facility] ([id number]) [address] [place] [address] ALT [Catalytic activity/Vol] 33 U/L Normal 0-40 [facility] Comment on above: Performed By: #### C BCA, CMP, 3040-3, 92047-1 #### [facility] ([id number]) [address] [place] [address] Anion gap [Moles/Vol] 9 mmol/L Normal 5-15 [facility] Comment on above: Performed By: #### C BCA, CMP, 3040-3, 11979-9 #### [facility] ([id number]) [address] [place] [address] AST [Catalytic activity/Vol] 29 U/L Normal 0-41 [facility] Comment on above: Performed By: #### C BCA, CMP, 3040-3, 75585-3 #### [facility] ([id number]) [address] [place] [address] Bilirubin [Mass/Vol] 0.9 mg/dL Normal 0.3-1.2 [facility] Comment on above: Performed By: #### C BCA, CMP, 3040-3, 26092-6 #### [facility] ([id number]) [address] [place] [address] Calcium [Mass/Vol] 9.1 mg/dL Normal 8.5-10.5 [facility] Comment on above: Performed By: #### C BCA, CMP, 3040-3, 98997-5 #### [facility] ([id number]) [address] [place] [address] Chloride [Moles/Vol] 96 mmol/L Low 98-109 [facility] Comment on above: Performed By: #### C [place] ANTOINE, 3040-3, 31481-0 #### [facility] ([id number]) [address] [place] [address] CO2 [Moles/Vol] 24 mmol/L Normal 22-32 [facility] Comment on above: Performed By: #### C [place] ANTOINE, 0-3, 89066-2 #### [facility] ([id number]) [address] [place] [address] Creatinine [Mass/Vol] 0.91 mg/dL Normal 0.70-1.20 [facility] Comment on above: Result Comment: METH OD TRACEABLE TO IDMS STANDARD Performed By: #### C [place] ANTOINE, 3043, 27126-7 #### [facility] ([id number]) [address] [place] [address] eGFR (CKD-EPI) NON-RACE DEPENDENT >90 Normal >59 [facility] Comment on above: Result Comment: Reported eGFR is based on the CKD-EPI 2020 equation that does not use a race coefficient. Performed By: #### C ALEX[place] ANTOINE, 3040-3, 19581-6 #### [facility] ([id number]) [address] [place] [address] Glucose [Mass/Vol] 97 mg/dL Normal 65-99 [facility] Comment on above: Performed By: #### C ALEX[place] ANTOINE, 3040-3, 50523-9 #### [facility] ([id number]) [address] [place] [address] Potassium [Moles/Vol] 3.2 mmol/L Low 3.5-5.0 [facility] Comment on above: Performed By: #### C ARASH CMP, 304-3, 60716-9 #### [facility] ([id number]) [address] [place] [address] Protein [Mass/Vol] 7.2 g/dL Normal 6.0-8.0 [facility] Comment on above: Performed By: #### C BCA, CMP, 3040-3, 19830-0 #### [facility] ([id number]) [address] [place] [address] Sodium [Moles/Vol] 129 mmol/L Low 134-146 [facility] Comment on above: Performed By: #### C BCA, CMP, 3040-3, 56769-8 #### [facility] ([id number]) [address] [place] [address] Urea nitrogen [Mass/Vol] 15 mg/dL Normal 5-23 [facility] Comment on above: Performed By: #### C BCA, CMP, 3040-3, 61267-3 #### [facility] ([id number]) [address] [place] [address] LIPASEon 05-15-2024 Lipase [Catalytic activity/Vol] 37 U/L Normal 17-40 [facility] Comment on above: Performed By: #### C BCA, CMP, 3040-3, 64960-7 #### [facility] ([id number]) [address] [place] [address] Lactate (P cherie) [Moles/Vol]o n 05-15-2024 LACTATE W/REFLEX 1.0 mmol/L Normal 0.4-2.0 [facility] Comment on above: Result Comment: Result did not trigger repeat Lactate, re-order if needed. Performed By: #### 3 2133-1 #### [facility] ([id number]) [address] [place] [address] Troponin I.cardiac High sens itivity method [Mass/Vol]on 05-15-2024 1 HOUR TROP I, HIGH SENSITIVITY 3 ng/L Normal <21 [facility] Comment on above: Performed By: #### 8 9579-7 #### [facility] ([id number]) [address] [place] [address], [place] [address] TROPONIN I, HIGH SENSITIVITY 3 ng/L Normal <21 [facility] Comment on above: Performed By: #### C BCA, CMP, 3040-3, 44527-6 #### [facility] ([id number]) [address] [place] [address], [place] [address] Automated basophil %Ordered By: James De on 03-03-2024 Basophils/100 WBC (Bld) 0.4 % Normal . [facility] Comment on above: Performed By: #### B MP, SCAN CBC #### [address] Automated basophil countOrde red By: James De on 03-03-2024 Basophils (Bld) [#/Vol] 0.0 10*3/uL Normal 0.0-0.2 [facility] Comment on above: Performed By: #### B MP, SCAN CBC #### [address] Automated blood monocyte cou ntOrdered By: James De on 03-03-2024 Monocytes (Bld) [#/Vol] 0.8 10*3/uL Normal 0.0-0.8 [facility] Comment on above: Performed By: #### B MP, SCAN CBC #### [facility] [address] [place] [address] Automated eosinophil %Ordere d By: James De on 03-03-2024 Eosinophils/100 WBC (Bld) 2.6 % Normal . [facility] Comment on above: Performed By: #### B MP, SCAN CBC #### [address] Automated eosinophil countOr dered By: James De on 03-03-2024 Eosinophils (Bld) [#/Vol] 0.2 10*3/uL Normal 0.0-0.45 [facility] Comment on above: Performed By: #### B MP, SCAN CBC #### [facility] [address] [place] [address] Automated monocyte %Ordered By: James De on 03-03-2024 Monocytes/100 WBC (Bld) 8.7 % Normal . [facility] Comment on above: Performed By: #### B MP, SCAN CBC #### [facility] [address] [place] [address] Automated neutrophil %Ordere d By: James De on 03-03-2024 Neutrophils/100 WBC (Bld) 74.9 % Normal . [facility] Comment on above: Performed By: #### B MP, SCAN CBC #### [address] Bacteria [Presence] in Urine by AutomatedOrdered By: Nish Davidson on 03-03-2024 Bacteria Auto Ql (U) None seen [HPF] None Seen [facility] Basic Metabolic Panelon 02-19 Creatinine Clr Calc Pharmacy 68.43 Normal [facility] Comment on above: Result Comment: PERF ORMED BY: [place] [address] PATHOLOGIST CUSTOMER ACCOUNT MANAGER GAURAV CONWAY M.D. Performed By: #### B MP, SCAN CBC #### [address] GFR/1.73 sq M.predicted MDRD (S/P/Bld) [Vol rate/Area] mL/min/{1.73_m2} Normal [facility] Comment on above: Performed By: #### B MP, SCAN CBC #### [facility] [address] [place] [address] Bilirubin Test strip Ql (U)O rdered By: Nish Davidson on 03-03-2024 Bilirubin Ql (U) Negative Negative [facility] Calcium [Mass/volume] in Ser um or PlasmaOrdered By: James De on 03-03-2024 Calcium [Mass/Vol] 9.5 mg/dL Normal 8.6-10.3 [facility] Comment on above: Performed By: #### B MP, SCAN CBC #### [facility] [address] [place] [address] [place] Carbon dioxide, total [Moles /volume] in Serum or PlasmaOrdered By: James De on 03-03-2024 CO2 [Moles/Vol] 25.3 mmol/L Normal 21.0-31.0 [facility] Comment on above: Performed By: #### B MP, SCAN CBC #### [facility] [address] [place] [address] [place] Chloride [Moles/volume] in S dereje or PlasmaOrdered By: James De on 03-03-2024 Chloride [Moles/Vol] 102 mmol/L Normal 98-107 [facility] Comment on above: Performed By: #### B MP, SCAN CBC #### [address] Color of Urine by AutoOrdere d By: Nish Davidson on 03-03-2024 Color (U) Yellow Normal Yellow [facility] Comment on above: Order Comment: Name Collection Type:: Voided Performed By: #### A DDONUAPLUS ####[address] Creatinine [Mass/volume] in Serum or PlasmaOrdered By: James De on 03-03-2024 Creatinine [Mass/Vol] 1.18 mg/dL Normal 0.70-1.30 [facility] Comment on above: Performed By: #### B MP, SCAN CBC #### [facility] [address] [place] [address] [place] Dipstick and Microscopicon 0 03-03-2024 Bacteria,Urine None Seen Normal None Seen [facility] Comment on above: Order Comment: Name Collection Type:: Voided Performed By: #### A DDONUAPLUS ####[place] [address] [place] Bilirubin,Urine Negative Normal Negative [facility] Comment on above: Order Comment: Name Collection Type:: Voided Performed By: #### A DDONUAPLUS ####[address] [place] [address] [facility] Glucose Ql (U) Normal Normal Normal [facility] Comment on above: Order Comment: Name Collection Type:: Voided Performed By: #### A DDONUAPLUS ####[address] [place] [address] [place] Hyaline Casts,Urine 0-8 Normal 0-8 [facility] Comment on above: Order Comment: Name Collection Type:: Voided Performed By: #### A DDONUAPLUS ####[address] [address] [place] Mucus,Urine 1+ Critically abnormal [facility] Comment on above: Order Comment: Name Collection Type:: Voided Result Comment: PERF ORMED BY: [facility] [address] [place] [address] PATHOLOGIST CUSTOMER ACCOUNT MANAGER GAURAV CONWAY M.D. Performed By: #### A DDONUAPLUS ####[address] [address] [facility] Nitrite,Urine Negative Normal Negative [facility] Comment on above: Order Comment: Name Collection Type:: Voided Performed By: #### A DDONUAPLUS ####[address] [address] [facility] Occult Blood,Urine Negative Normal Negative [facility] Comment on above: Order Comment: Name Collection Type:: Voided Result Comment: PERF ORMED BY: [facility] [address] [facility] [id number] PATHOLOGIST CUSTOMER ACCOUNT MANAGER GAURAV CONWAY M.D. Performed By: #### A DDONUAPLUS ####[address] [address] [facility] Protein,Urine Trace High Negative [facility] Comment on above: Order Comment: Name Collection Type:: Voided Performed By: #### A DDONUAPLUS ####[address] [address] [facility] RBC,Urine None Seen Normal 0-4 [facility] Comment on above: Order Comment: Name Collection Type:: Voided Performed By: #### A DDONUAPLUS ####[address] Specificy [place],Urine 1.015 Normal 1.001-1.030 [facility] Comment on above: Order Comment: Name Collection Type:: Voided Performed By: #### A DDONUAPLUS ####[address] Squamous Epithelial Cell,Urine 1-2 Normal 0-2 [facility] Comment on above: Order Comment: Name Collection Type:: Voided Performed By: #### A DDONUAPLUS ####[address] Urobilinogen,Urine Normal Normal Normal [facility] Comment on above: Order Comment: Name Collection Type:: Voided Performed By: #### A DDONUAPLUS ####[address] Urothelial Cells 1-2 High 0-1 [facility] Comment on above: Order Comment: Name Collection Type:: Voided Performed By: #### A DDONUAPLUS ####[address] WBC,Urine 1-2 Normal 0-4 [facility] Comment on above: Order Comment: Name Collection Type:: Voided Performed By: #### A DDONUAPLUS ####[address] Epithelial cells.squamous [# /area] in Urine sediment by Automated countOrdered By: Nish Davidson on 03-03-2024 Epithelial cells.squamous Auto (Urine sed) [#/Area] 1-2 [HPF] 0-2 [facility] Erythrocyte distribution wid th [Ratio] by Automated countOrdered By: James De on 03-03-2024 Erythrocyte distribution width (RBC) [Ratio] 12.6 % Normal 12.0-14.8 [facility] Comment on above: Performed By: #### B MP, SCAN CBC #### [facility] [address] [place] [address] [place] Erythrocytes [#/area] in Uri ne sediment by Automated countOrdered By: Nish Davidson on 03-03-2024 RBC Auto (Urine sed) [#/Area] None seen [HPF] 0-4 [facility] Erythrocytes [#/volume] in B lood by Automated countOrdered By: James De on 03-03-2024 RBC (Bld) [#/Vol] 5.64 10*6/uL High 3.90-5.60 [facility] Comment on above: Performed By: #### B MP, SCAN CBC #### [facility] [address] [place] [address] [place] Glucose [Mass/volume] in Ser um or PlasmaOrdered By: James De on 03-03-2024 Glucose [Mass/Vol] 83 mg/dL Normal 70-100 [facility] Comment on above: ADA recommended refe rence rangeRandom Glucose Reference Range is dependent on time and content of last meal. Glucose of more than 200 mg/dL in a nonstressed, ambulatory subject supports the diagnosis of Diabetes Mellitus. Result Comment: [place] om Glucose Reference Range is dependent on time and content of last meal. Glucose of more than 200 mg/dL in a nonstressed, ambulatory subject supports the diagnosis of Diabetes Mellitus. ADA recommended reference range Performed By: #### B MP, SCAN CBC #### [facility] [address] [place] [id number] [place] Glucose [Mass/volume] in Uri ne by Test stripOrdered By: Nish Davidson on 03-03-2024 Glucose Test strip (U) [Mass/Vol] Normal mg/dL Normal [facility] Hematocrit [Volume Fraction] of Blood by Automated countOrdered By: James De on 03-03-2024 Hematocrit (Bld) [Volume fraction] 52.6 % High 38.8-50.0 [facility] Comment on above: Performed By: #### B MP, SCAN CBC #### [facility] [address] [place] [id number] [facility] Hemoglobin Test strip Ql (U) Ordered By: Nish Davidson on 03-03-2024 Hemoglobin Ql (U) Negative Negative [facility] Hemoglobin [Mass/volume] in BloodOrdered By: James De on 03-03-2024 Hemoglobin (Bld) [Mass/Vol] 18.5 g/dL High 13.0-17.0 [facility] Comment on above: Performed By: #### B MP, SCAN CBC #### [facility] [address] [place] [address] [place] Hyaline casts [#/area] in Ur ine sediment by Automated countOrdered By: Nish Davidson on 03-03-2024 Hyaline casts Auto (Urine sed) [#/Area] 0-8 [LPF] 0-8 [facility] Ketones [Presence] in Urine by Test stripOrdered By: Nish Davidson on 03-03-2024 Ketones Ql (U) 2+ High Negative [facility] Comment on above: Order Comment: Name Collection Type:: Voided Performed By: #### A DDONUAPLUS ####[facility] Leukocyte esterase [Presence ] in Urine by Test stripOrdered By: Nish Davidson on 03-03-2024 Leukocyte esterase Test strip Ql (U) Negative Normal Negative [facility] Comment on above: Order Comment: Name Collection Type:: Voided Performed By: #### A DDONUAPLUS ####[address] Leukocytes [#/area] in Urine sediment by Automated countOrdered By: Nish Davidson on 03-03-2024 WBC Auto (Urine sed) [#/Area] 1-2 [HPF] 0-4 [facility] Leukocytes [#/volume] correc ernst for nucleated erythrocytes in Blood by Automated counOrdered By: James De on 03-03-2024 WBC corrected for nucl RBC Auto (Bld) [#/Vol] 9.0 10*3/uL 4.1-10.5 [facility] Leukocytes [#/volume] in Blo od by Automated countOrdered By: James De on 03-03-2024 WBC (Bld) [#/Vol] 9.0 10*3/uL Normal 4.1-10.5 [facility] Comment on above: Performed By: #### B MP, SCAN CBC #### [facility] [address] Lymphocytes [#/volume] in Bl ood by Automated countOrdered By: James De on 03-03-2024 Lymphocytes (Bld) [#/Vol] 1.2 10*3/uL Normal 1.00-4.8 [facility] Comment on above: Performed By: #### B MP, SCAN CBC #### [facility] [address] [place] [address] Lymphocytes/100 leukocytes i n Blood by Automated countOrdered By: James De on 03-03-2024 Lymphocytes/100 WBC (Bld) 13.4 % Normal . [facility] Comment on above: Performed By: #### B MP, SCAN CBC #### [facility] [address] [place] [address] MCH [Entitic mass] by Automa ernst countOrdered By: James De on 03-03-2024 MCH (RBC) [Entitic mass] 32.8 pg Normal 27.5-35.2 [facility] Comment on above: Performed By: #### B MP, SCAN CBC #### [facility] [address] [place] [address] MCHC Auto (RBC) [Mass/Vol]Or dered By: James De on 03-03-2024 MCHC (RBC) [Mass/Vol] 35.1 g/dL 32.5-35.6 [facility] MCV [Entitic volume] by Auto mated countOrdered By: James De on 03-03-2024 MCV (RBC) [Entitic vol] 93.4 fL Normal 83.5-101 F [facility] Comment on above: Performed By: #### B MP, SCAN CBC #### [place] [address] [place] Monocyte distribution width [Entitic volume] in Blood by AutomatedOrdered By: James De on 03-03-2024 Monocyte distribution width Auto (Bld) [Entitic vol] 17.08 % 0.00-20.00 [facility] Mucus [Presence] in Urine by AutomatedOrdered By: Nish Davidson on 03-03-2024 Mucus Auto Ql (U) 1+ [LPF] Abnormal [facility] Neutrophils [#/volume] in Bl ood by Automated countOrdered By: James De on 03-03-2024 Neutrophils (Bld) [#/Vol] 6.7 10*3/uL Normal 1.8-7.7 [facility] Comment on above: Performed By: #### B MP, SCAN CBC #### [facility] [address] Nitrite Test strip Ql (U)Ord ered By: Nish Davidson on 03-03-2024 Nitrite Ql (U) Negative Negative [facility] No Panel InformationOrdered By: James De on 03-03-2024 Estimated GFR (CKD-EPI) > 60.0 mL/Min [facility] Creatinine Clearance (Chem 68.43 [facility] Nucleated erythrocytes [Pres ence] in Blood by Automated countOrdered By: James De on 03-03-2024 Nucleated RBC Auto Ql (Bld) 0.4 /100{WBC} 0-0.5 [facility] Platelet adequacy [Presence] in Blood by Light microscopyOrdered By: James De on 03-03-2024 Platelets LM Ql (Bld) Normal Normal [facility] Platelet mean volume [Entiti c volume] in Blood by Automated countOrdered By: James De on 03-03-2024 Platelet mean volume (Bld) [Entitic vol] 8.4 fL Normal 6.6-10.1 [facility] Comment on above: Performed By: #### B MP, SCAN CBC #### [facility] [address] Platelet morphology finding [Identifier] in BloodOrdered By: James De on 03-03-2024 Platelet morphology finding Nom (Bld) Normal Normal [facility] Platelets [#/volume] in Bloo d by Automated countOrdered By: James De on 03-03-2024 Platelets (Bld) [#/Vol] 207 10*3/uL Normal 150-450 [facility] Comment on above: Performed By: #### B MP, SCAN CBC #### [facility] [address] Potassium [Moles/volume] in Serum or PlasmaOrdered By: James De on 03-03-2024 Potassium [Moles/Vol] 3.7 mmol/L Normal 3.5-5.1 [facility] Comment on above: Performed By: #### B MP, SCAN CBC #### [facility] [address] Protein Test strip (U) [Mass /Vol]Ordered By: Nish Davidson on 03-03-2024 Protein (U) [Mass/Vol] Trace mg/dL High Negative [facility] RBC morphologyOrdered By: Asad De on 03-03-2024 RBC morphology finding Nom (Bld) Normal Normal Normal [facility] Comment on above: Performed By: #### B MP, SCAN CBC #### [facility] [address] [place] [address] Scan and CBCon 03-03-2024 Mean Corpuscular HGB Conc 35.1 g/dL Normal 32.5-35.6 [facility] Comment on above: Performed By: #### B MP, SCAN CBC #### [place] [address] [place] Monocytes/100 WBC (Bld) 17.08 % Normal 0.00-20.00 [facility] Comment on above: Performed By: #### B MP, SCAN CBC #### [place] [address] [place] NRBC% 0.4 /100{WBC} Normal 0-0.5 [facility] Comment on above: Performed By: #### B MP, SCAN CBC #### [facility] [address] [place] [address] [place] Platelet Estimate Normal Normal Normal [facility] Comment on above: Performed By: #### B MP, SCAN CBC #### [facility] [address] [place] [address] [place] Platelet Morphology Normal Normal Normal [facility] Comment on above: Result Comment: PERF ORMED BY: [place] [address] PATHOLOGIST CUSTOMER ACCOUNT MANAGER GAURAV CONWAY M.D. Performed By: #### B MP, SCAN CBC #### [facility] [address] [place] [address] Serum or plasma anion gap de terminationOrdered By: James De on 03-03-2024 Anion gap [Moles/Vol] 12.4 mmol/L Normal 6.0-15.0 [facility] Comment on above: Performed By: #### B MP, SCAN CBC #### [facility] [address] [place] [address] Sodium [Moles/volume] in Ser um or PlasmaOrdered By: James De on 03-03-2024 Sodium [Moles/Vol] 136 mmol/L Normal 136-145 [facility] Comment on above: Performed By: #### B MP, SCAN CBC #### [facility] [address] [place] [address] Specific gravity Test strip (U) [Rel density]Ordered By: Nish Davidson on 03-03-2024 Specific gravity (U) [Rel density] 1.015 1.001-1.030 [facility] Transitional cells [#/area] in Urine by Computer assisted methodOrdered By: Nish Davidson on 03-03-2024 Transitional cells Computer assisted (U) [#/Area] 1-2 [HPF] High 0-1 [facility] Urea nitrogen [Mass/volume] in Serum or PlasmaOrdered By: James De on 03-03-2024 Urea nitrogen [Mass/Vol] 8 mg/dL Normal 7-25 [facility] Comment on above: Performed By: #### B MP, SCAN CBC #### [facility] [address] [place] [address] Urine appearanceOrdered By: Nish Davidson on 03-03-2024 Appearance (U) Clear Normal Clear [facility] Comment on above: Order Comment: Name Collection Type:: Voided Performed By: #### A DDONUAPLUS ####[facility] [address] [place] [id number] [facility] Urobilinogen Test strip (U) [Mass/Vol]Ordered By: Nish Davidson on 03-03-2024 Urobilinogen (U) [Mass/Vol] Normal mg/dL Normal [facility] XR KUBon 03-03-2024 XR KUB [facility] [place] [address] [place] [address] XRay Report Signed Patient: Chai Russell MR#: [id number] 2 : 1970 Acct:[id number] Age/Sex: 53 / M ADM Date: 03/03/24 Loc: ER Room: Type: [facility] ER Attending Dr: Copies to: James De [...] Dante Lisa M.D.03/03/2024 2:38 PM Dictation Location: [place] [address] Transcribed By: [facility] 03/03/24 1438 Dictated By: Dante Lisa II, MD 03/03/24 1437 Signed By: 03/03/24 1438 Normal [facility] pH of Urine by Test stripOrd ered By: Nish Davidson on 03-03-2024 pH (U) 6.0 [pH] Normal 5.0-9.0 [facility] Comment on above: Order Comment: Name Collection Type:: Voided Performed By: #### A DDONUAPLUS ####[facility] [address] [place] [address] [facility] Surgical Pathologyon 024 [facility] Comment on above: Result Comment: [facility] [address] [place] [address] Surgical Pathology Consultation Patient Name:CHAI RUSSELL:1970 (Age: 53)Gender:MTaken:02/17/2024eported:02/22/2024hysician(s):Jennyfer Acharya MD ([phone])Copy To: Rec. #:[id number]: #[id number] Final Pathologic Diagnosis 1. Colon polyp 55cm: Hyperplastic polyp. 2. Colon polyp 35cm: Tubular adenoma. Report Electronically Signed Out st/02/22/2024Keren Bee MD Interpretation performed at [facility], [address] [place], [address], License number: [id number]. Clinical History Change in bowel habits. Gross Description 1. Received in formalin labeled, CATALIAN, 55 cm is a mccray-richardson 0.3 cm soft tissue.. The specimen is filtered and entirely submitted in a single cassette. (1, ns, [id number], m8) SM 2. Received in formalin labeled, CATALINA, 35 cm is a pale richardson 0.3 cm the specimen is filtered and entirely submitted in a single cassette. (1, ns, [id number], m8) SM [facility]/02/20/2024GR Specimen(s) Received 1: Colon polyp 55cm 2: Colon polyp 35cm Fee Codes(s): 1; 39266 2; 38034 Patient Educationon 02-07-20 24 Patient Education Oncology Cancer Screening for Men [...] if anything looks unusual. Men with a tecjoy-tifj-leijsr risk for skin cancer may want to see a skin toggler (manufacturing engineer paint) for an annual body check. What are the benefits of screening? Cancer screening is done to look for cancer in the very early stages, before it spreads and becomes harder to treat and before you would start to notice symptoms. Finding cancer early improves the chances of successful treatment. It ma (more content not included)... Normal [facility] Urology Office/Clinic Noteon 02-07-2024 Urology Office/Clinic Note Chief Complaint Pt is here for urinary retention [facility] ER f/u HPI Staff Chai is a 53 y.o. male here for [facility] ER f/u, urinary retention. Pt presented to [facility] on 01/29/24 due to inability to urinate. PVR done @ [facility] showed 900cc of urine, Murray [...] with voice recognition artificial intelligence software, specifically [employer], [employer] and or [employer]. 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 We discussed alpha-philip medications to help with urinary symptoms, possible [...] 25 mg= 1 tab(s), Oral, Daily nitrofurantoin macrocrystals-monoh ydrate 100 mg Cap tamsulosin 0.4 mg Cap, [...] Recorded influenza virus vaccine, inactivated 06/07/2019 Recorded diphtheria/pertussi s, acel/tetanus adult 10/27/2013 Recorded Normal [facility] Comment on above: Result Comment: Elec tronically Signed By: JOSEPH Allen APRN, Didi Martin\.br\Date and Time Signed: 02/07/24 23:06 EDT ED Note-Physicianon 02-03-20 24 ED Note-Physician [id number] 21#1.00TIFF [facility] Formson 02-03-2024 Forms [id number] B0#1.00TIFF [facility] Screenson 02-03-2024 Screens [id number] 51#1.00TIFF [facility] Screens [id number] 05#1.00TIFF [facility] Ambulatory Visit Summaryon 0 02-02-2024 Ambulatory Visit Summary CHAI RUSSELL :1970 Visit Date:02/02/2024 Ambulatory Visit Instructions Your Diagnosis Urinary retention Your Care Team Attending Physician - JOSEPH Allen APRN, [place] X Primary Care Physician - CISCO BLANC DO This Is Your Medications List amlodipine (amLODIPine 5 mg Tab) metoprolol (Lopressor 25 mg oral tablet) nitrofurantoin (nitrofurantoin macrocrystals-monoh ydrate 100 mg Cap) Procedures Performed Appendectomy, Colonoscopy. [...] By Mouth Every day Unchanged nitrofurantoin (nitrofurantoin macrocrystals-monoh ydrate 100 mg Cap) Allergies No Known Medication [...] you for choosing us for your care. [facility] Ambulatory Visit Summary CHAI RUSSELL :1970 Visit Date:02/02/2024 Ambulatory Visit Instructions Your Diagnosis Urinary retention Your Care Team Attending Physician - JOSEPH Allen APRN, Didi Martin Primary Care Physician - CISCO BLANC DO This Is Your Medications List amlodipine (amLODIPine 5 mg Tab) metoprolol (Lopressor 25 mg oral tablet) nitrofurantoin (nitrofurantoin macrocrystals-monoh ydrate 100 mg Cap) Procedures Performed Appendectomy, Colonoscopy. [...] By Mouth Every day Unchanged nitrofurantoin (nitrofurantoin macrocrystals-monoh ydrate 100 mg Cap) Allergies No Known Medication [...] you for choosing us for your care. [facility] CT abdomen pelvis wo conon 0 01-30-2024 CT abdomen pelvis wo con [facility] [place] [address] CT Scan Report Signed Patient: Chai Russell MR#: [id number] 2 : 1970 Acct:[id number] Age/Sex: 53 / M ADM Date: 01/29/24 Loc: ER Room: Type: [facility] ER Attending Dr: Copies to: Jennyfer Winkler [...] Anni Whitley M.D.01/30/2024 8:58 AM Dictation Location: [place] [address] Transcribed By: [facility] 01/30/2458 Dictated By: Anni Whitley MD 01/30/24 0851 Signed By: 01/30/24857 Normal [facility] Alanine aminotransferase [En zymatic activity/volume] in Serum or PlasmaOrdered By: Jennyfer Winkler on 01-29-2024 ALT [Catalytic activity/Vol] 24 U/L Normal 7-52 [facility] Comment on above: Performed By: #### H EPATIC, LIPASE, DIFF CBC, GLADYS, BMP #### [facility] [address] Albumin [Mass/volume] in Ser um or Plasma by Bromocresol green (BCG) dye binding methoOrdered By: Jennyfer Winkler on 01-29-2024 Albumin BCG dye [Mass/Vol] 4.9 g/dL 3.5-5.7 [facility] Alkaline phosphatase [Enzyma tic activity/volume] in Serum or PlasmaOrdered By: Jennyfer Winkler on 01-29-2024 ALP [Catalytic activity/Vol] 96 U/L Normal 34-104 [facility] Comment on above: Performed By: #### H EPATIC, LIPASE, DIFF CBC, GLADYS, BMP #### [facility] [address] Amylase [Enzymatic activity/ volume] in Serum or PlasmaOrdered By: Jennyfer Winkler on 01-29-2024 Amylase [Catalytic activity/Vol] 47 U/L Normal 29-103 [facility] Comment on above: Performed By: #### H EPATIC, LIPASE, DIFF CBC, GLADYS, BMP #### [facility] [address] Aspartate aminotransferase [ Enzymatic activity/volume] in Serum or PlasmaOrdered By: Jennyfer Winkler on 01-29-2024 AST [Catalytic activity/Vol] 21 U/L Normal 13-39 [facility] Comment on above: Performed By: #### H EPATIC, LIPASE, DIFF CBC, GLADYS, BMP #### [facility] [address] Basic Metabolic Panelon 06-0 Creatinine Clr Calc Pharmacy 83.32 Normal [facility] Comment on above: Performed By: #### H EPATIC, LIPASE, DIFF CBC, GLADYS, BMP #### [facility] [address] GFR/1.73 sq M.predicted MDRD (S/P/Bld) [Vol rate/Area] mL/min/{1.73_m2} Normal [facility] Comment on above: Performed By: #### H EPATIC, LIPASE, DIFF CBC, GLADYS, BMP #### [facility] [address] Basophils Auto (Bld) [#/Vol] Ordered By: Jennyfer Winkler on 01-29-2024 Basophils (Bld) [#/Vol] N/A F [facility] Basophils/100 WBC Auto (Bld) Ordered By: Jennyfer Winkler on 01-29-2024 Basophils/100 WBC (Bld) N/A F [facility] Bilirubin Test strip Ql (U)O rdered By: Jennyfer Winkler on 01-29-2024 Bilirubin Ql (U) Negative Negative [facility] Bilirubin.direct [Mass/volum e] in Serum or PlasmaOrdered By: Jennyfer Winkler on 01-29-2024 Bilirubin.direct [Mass/Vol] 0.10 mg/dL 0.03-0.18 [facility] Bilirubin.total [Mass/volume ] in Serum or PlasmaOrdered By: Jennyfer Winkler on 01-29-2024 Bilirubin [Mass/Vol] 0.8 mg/dL Normal 0.3-1.0 [facility] Comment on above: Performed By: #### H EPATIC, LIPASE, DIFF CBC, GLADYS, BMP #### [facility] [address] Calcium [Mass/volume] in Ser um or PlasmaOrdered By: Jennyfer Winkler on 01-29-2024 Calcium [Mass/Vol] 10.2 mg/dL Normal 8.6-10.3 [facility] Comment on above: Performed By: #### H EPATIC, LIPASE, DIFF CBC, GLADYS, BMP #### [facility] [address] Carbon dioxide, total [Moles /volume] in Serum or PlasmaOrdered By: Jennyfer Winkler on 01-29-2024 CO2 [Moles/Vol] 26.4 mmol/L Normal 21.0-31.0 [facility] Comment on above: Performed By: #### H EPATIC, LIPASE, DIFF CBC, GLADYS, BMP #### [address] Chloride [Moles/volume] in S dereje or PlasmaOrdered By: Jennyfer Winkler on 01-29-2024 Chloride [Moles/Vol] 98 mmol/L Normal 98-107 [facility] Comment on above: Performed By: #### H EPATIC, LIPASE, DIFF CBC, GLADYS, BMP #### [address] Color of Urine by AutoOrdere d By: Jennyfer Winkler on 01-29-2024 Color (U) Colorless Normal Yellow [facility] Comment on above: Order Comment: Name Collection Type:: Murray Catheter Performed By: #### U A #### [address] Creatinine [Mass/volume] in Serum or PlasmaOrdered By: Jennyfer Winkler on 01-29-2024 Creatinine [Mass/Vol] 1.07 mg/dL Normal 0.70-1.30 [facility] Comment on above: Performed By: #### H EPATIC, LIPASE, DIFF CBC, GLADYS, BMP #### [address] [address] Diff and CBCon 01-29-2024 Giant Platelet Tally 1 /100{WBC} Normal [facility] Comment on above: Performed By: #### H EPATIC, LIPASE, DIFF CBC, GLADYS, BMP #### [address] Mean Corpuscular HGB Conc 35.0 g/dL Normal 32.5-35.6 [facility] Comment on above: Performed By: #### H EPATIC, LIPASE, DIFF CBC, GLADYS, BMP #### [address] Monocytes/100 WBC (Bld) 18.41 % Normal 0.00-20.00 [facility] Comment on above: Result Comment: PERF ORMED BY: [place] [address] PATHOLOGIST CUSTOMER ACCOUNT MANAGER GAURAV CONWAY M.D. Performed By: #### H EPATIC, LIPASE, DIFF CBC, GLADYS, BMP #### [address] Platelet Estimate Normal Normal Normal [facility] Comment on above: Performed By: #### H EPATIC, LIPASE, DIFF CBC, GLADYS, BMP #### [address] Platelet Morphology Normal Normal Normal [facility] Comment on above: Result Comment: PERF ORMED BY: [place] [address] PATHOLOGIST CUSTOMER ACCOUNT MANAGER GAURAV CONWAY M.D. Performed By: #### H EPATIC, LIPASE, DIFF CBC, GLADYS, BMP #### [address] Reactive Lymphocytes 6 % Normal 0-12 [facility] Comment on above: Performed By: #### H EPATIC, LIPASE, DIFF CBC, GLADYS, BMP #### [place] [address] [place] Eosinophils Auto (Bld) [#/Vo l]Ordered By: Jennyfer Winkler on 01-29-2024 Eosinophils (Bld) [#/Vol] N/A [facility] Eosinophils/100 WBC Auto (Bl d)Ordered By: Jennyfer Winkler on 01-29-2024 Eosinophils/100 WBC (Bld) N/A [facility] Eosinophils/100 leukocytes i n Blood by Manual countOrdered By: Jennyfer Winkler on 01-29-2024 Eosinophils/100 WBC (Bld) 5 % High 1-3 [facility] Comment on above: Performed By: #### H EPATIC, LIPASE, DIFF CBC, GLADYS, BMP #### [facility] [address] [place] [address] Erythrocyte distribution wid th [Ratio] by Automated countOrdered By: Jennyfer Winkler on 01-29-2024 Erythrocyte distribution width (RBC) [Ratio] 12.1 % Normal 12.0-14.8 [facility] Comment on above: Performed By: #### H EPATIC, LIPASE, DIFF CBC, GLADYS, BMP #### [facility] [address] Erythrocytes [#/volume] in B lood by Automated countOrdered By: Jennyfer Winkler on 01-29-2024 RBC (Bld) [#/Vol] 5.83 10*6/uL High 3.90-5.60 [facility] Comment on above: Performed By: #### H EPATIC, LIPASE, DIFF CBC, GLADYS, BMP #### [facility] [address] Giant platelets/100 leukocyt es [Ratio] in Blood by Manual countOrdered By: Jennyfer Winkler on 01-29-2024 Giant platelets/100 WBC Manual cnt (Bld) [Ratio] 1 /100{WBC} [facility] Glucose [Mass/volume] in Ser um or PlasmaOrdered By: Jennyfer Winkler on 01-29-2024 Glucose [Mass/Vol] 103 mg/dL High 70-100 [facility] Comment on above: ADA recommended refe rence rangeRandom Glucose Reference Range is dependent on time and content of last meal. Glucose of more than 200 mg/dL in a nonstressed, ambulatory subject supports the diagnosis of Diabetes Mellitus. Result Comment: [place] om Glucose Reference Range is dependent on time and content of last meal. Glucose of more than 200 mg/dL in a nonstressed, ambulatory subject supports the diagnosis of Diabetes Mellitus. ADA recommended reference range Performed By: #### H EPATIC, LIPASE, DIFF CBC, GLADYS, BMP #### [facility] [address] [id number] [facility] Glucose [Mass/volume] in Uri ne by Test stripOrdered By: Jennyfer Winkler on 01-29-2024 Glucose Test strip (U) [Mass/Vol] Normal mg/dL Normal [facility] Hematocrit [Volume Fraction] of Blood by Automated countOrdered By: Jennyfer Winkler on 01-29-2024 Hematocrit (Bld) [Volume fraction] 54.1 % High 38.8-50.0 [facility] Comment on above: Performed By: #### H EPATIC, LIPASE, DIFF CBC, GLADYS, BMP #### [address] Hemoglobin Test strip Ql (U) Ordered By: Jennyfer Winkler on 01-29-2024 Hemoglobin Ql (U) Negative Negative [facility] Hemoglobin [Mass/volume] in BloodOrdered By: Jennyfer Winkler on 01-29-2024 Hemoglobin (Bld) [Mass/Vol] 18.9 g/dL High 13.0-17.0 [facility] Comment on above: Performed By: #### H EPATIC, LIPASE, DIFF CBC, GLADYS, BMP #### [address] Hepatic Panelon 01-29-2024 Albumin [Mass/Vol] 4.9 g/dL Normal 3.5-5.7 [facility] Comment on above: Performed By: #### H EPATIC, LIPASE, DIFF CBC, GLADYS, BMP #### [address] Bilirubin,Indirect 0.7 mg/dL Normal [facility] Comment on above: Performed By: #### H EPATIC, LIPASE, DIFF CBC, GLADYS, BMP #### [address] Bilirubin.indirect [Mass/Vol] 0.10 mg/dL Normal 0.03-0.18 [facility] Comment on above: Performed By: #### H EPATIC, LIPASE, DIFF CBC, GLADYS, BMP #### [address] Ketones [Presence] in Urine by Test stripOrdered By: Jennyfer Winkler on 01-29-2024 Ketones Ql (U) Negative Normal Negative [facility] Comment on above: Order Comment: Name Collection Type:: Murray Catheter Performed By: #### U A #### [address] Leukocyte esterase [Presence ] in Urine by Test stripOrdered By: Jennyfer Winkler on 01-29-2024 Leukocyte esterase Test strip Ql (U) Negative Normal Negative [facility] Comment on above: Order Comment: Name Collection Type:: Murray Catheter Performed By: #### U A #### [facility] [address] [place] [address] Leukocytes [#/volume] correc ernst for nucleated erythrocytes in Blood by Automated counOrdered By: Jennyfer Winkler on 01-29-2024 WBC corrected for nucl RBC Auto (Bld) [#/Vol] 6.8 10*3/uL 4.1-10.5 [facility] Leukocytes [#/volume] in Blo od by Automated countOrdered By: Jennyfer Winkler on 01-29-2024 WBC (Bld) [#/Vol] 6.8 10*3/uL Normal 4.1-10.5 [facility] Comment on above: Performed By: #### H EPATIC, LIPASE, DIFF CBC, GLADYS, BMP #### [address] Lipase [Enzymatic activity/v olume] in Serum or PlasmaOrdered By: Jennyfer Winkler on 01-29-2024 Lipase [Catalytic activity/Vol] 29.0 U/L Normal 11.0-82.0 [facility] Comment on above: Result Comment: PERF ORMED BY: [place] [address] PATHOLOGIST CUSTOMER ACCOUNT MANAGER GAURAV CONWAY M.D. Performed By: #### H EPATIC, LIPASE, DIFF CBC, GLADYS, BMP #### [address] Lymphocytes Auto (Bld) [#/Vo l]Ordered By: Jennyfer Winkler on 01-29-2024 Lymphocytes (Bld) [#/Vol] N/A [facility] Lymphocytes/100 WBC Auto (Bl d)Ordered By: Jennyfer Winkler on 01-29-2024 Lymphocytes/100 WBC (Bld) N/A [facility] Lymphocytes/100 leukocytes i n Blood by Manual countOrdered By: Jennyfer Winkler on 01-29-2024 Lymphocytes/100 WBC (Bld) 28 % Normal 18-42 [facility] Comment on above: Performed By: #### H EPATIC, LIPASE, DIFF CBC, GLADYS, BMP #### [address] MCH [Entitic mass] by Automa ernst countOrdered By: Jennyfer Winkler on 01-29-2024 MCH (RBC) [Entitic mass] 32.4 pg Normal 27.5-35.2 [facility] Comment on above: Performed By: #### H EPATIC, LIPASE, DIFF CBC, GLADYS, BMP #### [facility] [address] [place] [address] MCHC Auto (RBC) [Mass/Vol]Or dered By: Jennyfer Winkler on 01-29-2024 MCHC (RBC) [Mass/Vol] 35.0 g/dL 32.5-35.6 [facility] MCV [Entitic volume] by Auto mated countOrdered By: Jennyfer Winkler on 01-29-2024 MCV (RBC) [Entitic vol] 92.7 fL Normal 83.5-101 F [facility] Comment on above: Performed By: #### H EPATIC, LIPASE, DIFF CBC, GLADYS, BMP #### [facility] [address] [place] [address] Manual blood segmented neutr ophils/100 leukocytesOrdered By: Jennyfer Winkler on 01-29-2024 Segmented neutrophils/100 WBC (Bld) 58 % Normal 50-70 [facility] Comment on above: Performed By: #### H EPATIC, LIPASE, DIFF CBC, GLADYS, BMP #### [facility] [address] [place] [address] Monocyte distribution width [Entitic volume] in Blood by AutomatedOrdered By: Jennyfer Winkler on 01-29-2024 Monocyte distribution width Auto (Bld) [Entitic vol] 18.41 % 0.00-20.00 [facility] Monocytes Auto (Bld) [#/Vol] Ordered By: Jennyfer Winkler on 01-29-2024 Monocytes (Bld) [#/Vol] N/A F [facility] Monocytes/100 WBC Auto (Bld) Ordered By: Jennyfer Winkler on 01-29-2024 Monocytes/100 WBC (Bld) N/A F [facility] Monocytes/100 leukocytes in Blood by Manual countOrdered By: Jennyfer Winkler on 01-29-2024 Monocytes/100 WBC (Bld) 4 % Normal 2-11 F [facility] Comment on above: Performed By: #### H EPATIC, LIPASE, DIFF CBC, GLADYS, BMP #### [facility] [address] [place] [address] [place] Neutrophils Auto (Bld) [#/Vo l]Ordered By: Jennyfer Winkler on 01-29-2024 Neutrophils (Bld) [#/Vol] N/A [facility] Neutrophils/100 WBC Auto (Bl d)Ordered By: Jennyfer Winkler on 01-29-2024 Neutrophils/100 WBC (Bld) N/A [facility] Nitrite Test strip Ql (U)Ord ered By: Jennyfer Winkler on 01-29-2024 Nitrite Ql (U) Negative Negative [facility] No Panel InformationOrdered By: Jennyfer Winkler on 01-29-2024 Estimated GFR (CKD-EPI) > 60.0 mL/Min [facility] Creatinine Clearance (Chem 83.32 [facility] Nucleated erythrocytes [Pres ence] in Blood by Automated countOrdered By: Jennyfer Winkler on 01-29-2024 Nucleated RBC Auto Ql (Bld) N/A [facility] Platelet adequacy [Presence] in Blood by Light microscopyOrdered By: Jennyfer Winkler on 01-29-2024 Platelets LM Ql (Bld) Normal Normal [facility] Platelet mean volume [Entiti c volume] in Blood by Automated countOrdered By: Jennyfer Winkler on 01-29-2024 Platelet mean volume (Bld) [Entitic vol] 8.1 fL Normal 6.6-10.1 [facility] Comment on above: Performed By: #### H EPATIC, LIPASE, DIFF CBC, GLADYS, BMP #### [facility] [address] Platelet morphology finding [Identifier] in BloodOrdered By: Jennyfer Winkler on 01-29-2024 Platelet morphology finding Nom (Bld) Normal Normal [facility] Platelets [#/volume] in Bloo d by Automated countOrdered By: eJnnyfer Winkler on 01-29-2024 Platelets (Bld) [#/Vol] 245 10*3/uL Normal 150-450 [facility] Comment on above: Performed By: #### H EPATIC, LIPASE, DIFF CBC, GLADYS, BMP #### [address] Potassium [Moles/volume] in Serum or PlasmaOrdered By: Jennyfer Winkler on 01-29-2024 Potassium [Moles/Vol] 3.9 mmol/L Normal 3.5-5.1 [facility] Comment on above: Performed By: #### H EPATIC, LIPASE, DIFF CBC, GLADYS, BMP #### [address] Protein Test strip (U) [Mass /Vol]Ordered By: Jennyfer Winkler on 01-29-2024 Protein (U) [Mass/Vol] Negative Negative [facility] Protein [Mass/volume] in Ser um or PlasmaOrdered By: Jennyfer Winkler on 01-29-2024 Protein [Mass/Vol] 8.0 g/dL Normal 6.4-8.9 [facility] Comment on above: Performed By: #### H EPATIC, LIPASE, DIFF CBC, GLADYS, BMP #### [address] RBC morphologyOrdered By: Ella Winkler on 01-29-2024 RBC morphology finding Nom (Bld) Normal Normal [facility] Comment on above: Performed By: #### H EPATIC, LIPASE, DIFF CBC, GLADYS, BMP #### [address] Serum globulin measurement b y calculation (mass/volume)Ordered By: Jennyfer Winkler on 01-29-2024 Globulin (S) [Mass/Vol] 3.1 g/dL Normal [facility] Comment on above: Performed By: #### H EPATIC, LIPASE, DIFF CBC, GLADYS, BMP #### [address] Serum or plasma albumin/glob ulin mass ratioOrdered By: Jennyfer Winkler on 01-29-2024 Albumin/Globulin [Mass ratio] 1.6 {ratio} Normal [facility] Comment on above: Performed By: #### H EPATIC, LIPASE, DIFF CBC, GLADYS, BMP #### [address] Serum or plasma anion gap de terminationOrdered By: Jennyfer Winkler on 01-29-2024 Anion gap [Moles/Vol] 10.5 mmol/L Normal 6.0-15.0 [facility] Comment on above: Performed By: #### H EPATIC, LIPASE, DIFF CBC, GLADYS, BMP #### [address] Serum or plasma non-glucuron idated bilirubin measurement (mass/volume)Ordered By: Jennyfer Winkler on 01-29-2024 Bilirubin.indirect [Mass/Vol] 0.7 mg/dL [facility] Sodium [Moles/volume] in Ser um or PlasmaOrdered By: Jennyfer Winkler on 01-29-2024 Sodium [Moles/Vol] 131 mmol/L Low 136-145 [facility] Comment on above: Performed By: #### H EPATIC, LIPASE, DIFF CBC, GLADYS, BMP #### [address] Specific gravity Test strip (U) [Rel density]Ordered By: Jennyfer Winkler on 01-29-2024 Specific gravity (U) [Rel density] 1.003 1.001-1.030 [facility] Urea nitrogen [Mass/volume] in Serum or PlasmaOrdered By: Jennyfer Winkler on 01-29-2024 Urea nitrogen [Mass/Vol] 6 mg/dL Low 7-25 [facility] Comment on above: Performed By: #### H EPATIC, LIPASE, DIFF CBC, GLADYS, BMP #### [address] Urinalysison 01-29-2024 Bilirubin,Urine Negative Normal Negative [facility] Comment on above: Order Comment: Name Collection Type:: Murray Catheter Performed By: #### U A #### [address] Glucose Ql (U) Normal Normal Normal [facility] Comment on above: Order Comment: Name Collection Type:: Murray Catheter Performed By: #### U A #### [address] Nitrite,Urine Negative Normal Negative [facility] Comment on above: Order Comment: Name Collection Type:: Murray Catheter Performed By: #### U A #### [place] [address] [place] Occult Blood,Urine Negative Normal Negative [facility] Comment on above: Order Comment: Name Collection Type:: Murray Catheter Result Comment: PERF ORMED BY: [place] [address] PATHOLOGIST CUSTOMER ACCOUNT MANAGER GAURAV CONWAY M.D. Performed By: #### U A #### [place] [address] [place] Protein,Urine Negative Normal Negative [facility] Comment on above: Order Comment: Name Collection Type:: Murray Catheter Performed By: #### U A #### [place] [address] [place] Specificy [place],Urine 1.003 Normal 1.001-1.030 [facility] Comment on above: Order Comment: Name Collection Type:: Murray Catheter Performed By: #### U A #### [place] [address] [place] Urobilinogen,Urine Normal Normal Normal [facility] Comment on above: Order Comment: Name Collection Type:: Murray Catheter Performed By: #### U A #### [address] Urine appearanceOrdered By: Jennyfer Winkler on 01-29-2024 Appearance (U) Clear Normal Clear [facility] Comment on above: Order Comment: Name Collection Type:: Murray Catheter Performed By: #### U A #### [place] [address] [place] Urobilinogen Test strip (U) [Mass/Vol]Ordered By: Jennyfer Winkler on 01-29-2024 Urobilinogen (U) [Mass/Vol] Normal mg/dL Normal [facility] Variant lymphocytes/100 WBC Manual cnt (Bld)Ordered By: Jennyfer Winkler on 01-29-2024 Variant lymphocytes/100 WBC (Bld) 6 % 0-12 [facility] pH of Urine by Test stripOrd ered By: Jennyfer Winkler on 01-29-2024 pH (U) 7.5 [pH] Normal 5.0-9.0 [facility] Comment on above: Order Comment: Name Collection Type:: Murray Catheter Performed By: #### U A #### [facility] [address] CBC AUTO DIFFon 03-26-2022 BASO # 0.1 103/ul Normal 0.0-0.1 [facility] Comment on above: Performed By: #### C BC #### [facility] [address] [address] [address] Pravin Travis Basophils/100 WBC (Bld) 0.7 % Normal 0.2-2.0 [facility] Comment on above: Performed By: #### C BC #### [facility] [address] [address] [address] Pravin Travis EO # 0.6 103/ul Normal 0.0-0.7 [facility] Comment on above: Performed By: #### C BC #### [facility] [address] [address] [address] Pravin Travis Eosinophils/100 WBC (Bld) 7.4 % Critically high 0.9-7.0 [facility] Comment on above: Performed By: #### C BC #### [facility] [address] [address] [address] Pravin Travis Erythrocyte distribution width (RBC) [Ratio] 12.3 % Normal 11.0-15.0 [facility] Comment on above: Performed By: #### C BC #### [facility] [address] [address] [address] Pravin Travis Hematocrit (Bld) [Volume fraction] 47.2 % Normal 42.0-54.0 [facility] Comment on above: Performed By: #### C BC #### [facility] [address] [address] [address] Pravin Travis Hemoglobin (Bld) [Mass/Vol] 16.2 g/dL Normal 14.0-18.0 [facility] Comment on above: Performed By: #### C BC #### [facility] [address] [place] [address] Dr. Pravin Travis IG # 0.03 10e3/ul Normal 0.00-0.03 [facility] Comment on above: Performed By: #### C BC #### [facility] [address] [place] [address] Dr. Pravin Travis IG % 0.4 % Normal 0.0-0.5 [facility] Comment on above: Performed By: #### C BC #### [facility] [address] [place] [address] Dr. Pravin Travis LYMPH # 2.1 103/ul Normal 1.2-3.8 [facility] Comment on above: Performed By: #### C BC #### [facility] [address] [place] [address] Dr. Pravin Travis Lymphocytes/100 WBC (Bld) 24.3 % Normal 20.5-60.0 [facility] Comment on above: Performed By: #### C BC #### [facility] [address] [place] [address] Dr. Pravin Travis MANUAL DIFF REQ NO Normal [facility] Comment on above: Performed By: #### C BC #### [facility] [address] [place] [address] Dr. Pravin Travis MCH (RBC) [Entitic mass] 32.6 pg Normal 25.9-34.0 [facility] Comment on above: Performed By: #### C BC #### [facility] [address] [place] [address] Dr. Pravin Travis MCHC (RBC) [Mass/Vol] 34.3 g/dL Normal 29.9-35.2 [facility] Comment on above: Performed By: #### C BC #### [facility] [address] [place] [address] Dr. Pravin Travis MCV (RBC) [Entitic vol] 95.0 fL Critically high 80.0-94 .0 [facility] Comment on above: Performed By: #### C BC #### [facility] [address] [place] [address] Dr. Pravin Travis MONO # 0.8 103/ul Normal 0.3-0.8 [facility] Comment on above: Performed By: #### C BC #### [facility] [address] [place] [address] Dr. Pravin Travis Monocytes/100 WBC (Bld) 9.7 % Normal 1.7-12.0 [facility] Comment on above: Performed By: #### C BC #### [facility] [address] [place] [address] Dr. Pravin Travis NEUT # 4.9 103/ul Normal 1.4-6.5 [facility] Comment on above: Performed By: #### C BC #### [facility] [address] [place] [address] Dr. Pravin Travis Neutrophils/100 WBC (Bld) 57.5 % Normal 43.0-75.0 [facility] Comment on above: Performed By: #### C BC #### [facility] [address] [place] [address] Dr. Pravin Travis Platelet mean volume (Bld) [Entitic vol] 10.4 fL Normal 9.5-13.5 [facility] Comment on above: Performed By: #### C BC #### [facility] [address] [place] [address] Dr. Pravin Travis PLT 215 103/ul Normal 150-450 [facility] Comment on above: Performed By: #### C BC #### [facility] [address] [place] [address] Dr. Pravin Travis RBC 4.97 106/ul Normal 4.70-6.10 [facility] Comment on above: Performed By: #### C BC #### [facility] [address] [place] [address] Dr. Pravin Travis WBC 8.6 103/ul Normal 4.0-11.0 [facility] Comment on above: Performed By: #### C BC #### [facility] [address] [place] [address] ABD/PELV W CONon 03-26-[address] ABD/PELV W CON EXAMINATION: CT ABD/PELV [...] by: ALANA MORROW Date: 2022-03-26 01:45 Normal [facility] ER URINE PROFILEon 2 Bilirubin Ql (U) Negative Normal NEGATIVE [facility] Comment on above: Performed By: #### E RUR #### [facility] [address] [place] [address] Dr. Pravin Travis Clarity (U) SL CLOUDY Abnormal CLEAR [facility] Comment on above: Performed By: #### E RUR #### [facility] [address] [place] [address] Dr. Pravin Travis Color (U) LT. YELLOW Normal YELLOW [facility] Comment on above: Performed By: #### E RUR #### [facility] [address] [place] [address] Dr. Pravin TURK A micrscopic examination will be performed if indicated. Normal [facility] Comment on above: Performed By: #### E RUR #### [facility] [address] [place] [address] Dr. Pravin Travis Glucose Ql (U) Negative Normal NEGATIVE [facility] Comment on above: Performed By: #### E RUR #### [facility] [address] [place] [address] Dr. Pravin Travis Hemoglobin Ql (U) Negative Normal NEGATIVE [facility] Comment on above: Performed By: #### E RUR #### [facility] [address] [place] [address] Dr. Pravin Travis Ketones Ql (U) Negative Normal NEGATIVE [facility] Comment on above: Performed By: #### E RUR #### [facility] [address] [place] [address] Dr. Pravin Travis LEUKOCYTES Negative Normal NEGATIVE [facility] Comment on above: Performed By: #### E RUR #### [facility] [address] [place] [address] Dr. Pravin Travis Nitrite Ql (U) Negative Normal NEGATIVE [facility] Comment on above: Performed By: #### E RUR #### [facility] [address] [place] [address] Dr. Pravin Travis pH (U) 7.5 [pH] Normal 5-9 [facility] Comment on above: Performed By: #### E RUR #### [facility] [address] [place] [address] Dr. Pravin Travis SPEC GRAVITY 1.015 Normal 1.005-<=1.02 5 [facility] Comment on above: Performed By: #### E RUR #### [facility] [address] [place] [address] Dr. Pravin Travis UA PROTEIN Negative Normal NEGATIVE/ TRACE [facility] Comment on above: Performed By: #### E RUR #### [facility] [address] [place] [address] Dr. Pravin Travis UR MICRO IND NOT INDICATED Normal [facility] Comment on above: Performed By: #### E RUR #### [facility] [facility] [address] [place] [address] Dr. Pravin Travis Urobilinogen Qn (U) 0.2 {Katie'U}/dL Normal 0.2 - 1. 0 [facility] Comment on above: Performed By: #### E RUR #### [facility] [address] [address] [address] Pravin Travis PROF 14(COMP METB)on 022 Albumin [Mass/Vol] 4.3 g/dL Normal 3.4-5.0 [facility] Comment on above: Performed By: #### C MP #### [facility] [address] [address] [address] Pravin Travis Albumin/Globulin [Mass ratio] 1.3 {ratio} Normal [facility] Comment on above: Performed By: #### C MP #### [facility] [address] [place] [address] Dr. Pravin Travis ALP [Catalytic activity/Vol] 92 U/L Normal 46-116 [facility] Comment on above: Performed By: #### C MP #### [facility] [address] [place] [address] Dr. Pravin Travis ALT [Catalytic activity/Vol] 31 U/L Normal 16-63 [facility] Comment on above: Performed By: #### C MP #### [facility] [address] [address] [address] Pravin Travis Anion gap [Moles/Vol] 10.9 mmol/L Normal [facility] Comment on above: Performed By: #### C MP #### [facility] [address] [place] [address] Dr. Pravin Travis AST [Catalytic activity/Vol] 31 U/L Normal 15-37 [facility] Comment on above: Performed By: #### C MP #### [facility] [address] [place] [address] Dr. Pravin Travis Bilirubin [Mass/Vol] 0.5 mg/dL Normal 0.2-1.0 [facility] Comment on above: Performed By: #### C MP #### [facility] [address] [place] [address] Dr. Pravin Travis Calcium [Mass/Vol] 9.3 mg/dL Normal 8.5-10.1 [facility] Comment on above: Performed By: #### C MP #### [facility] [address] [address] [address] Pravin Travis Chloride [Moles/Vol] 103 mmol/L Normal 98-107 [facility] Comment on above: Performed By: #### C MP #### [facility] [address] [address] [address] Pravin Travis CO2 [Moles/Vol] 29.8 mmol/L Normal 21.0-32.0 [facility] Comment on above: Performed By: #### C MP #### [facility] [address] [place] [address] Dr. Pravin Travis Creatinine [Mass/Vol] 1.22 mg/dL Normal 0.70-1.30 [facility] Comment on above: Performed By: #### C MP #### [facility] [address] [place] [address] Dr. Pravin Travis EGFR-AF GUYANESE >60 Normal >=60 [facility] Comment on above: Performed By: #### C MP #### [facility] [address] [place] [address] Dr. Pravin Travis EGFR-NON AF GUYANESE >60 Normal >=60 [facility] Comment on above: Performed By: #### C MP #### [facility] [address] [place] [address] Dr. Pravin Travis Globulin (S) [Mass/Vol] 3.4 g/dL Normal [facility] Comment on above: Performed By: #### C MP #### [facility] [address] [place] [address] Dr. Pravin Travis Glucose [Mass/Vol] 91 mg/dL Normal 74-106 [facility] Comment on above: Performed By: #### C MP #### [facility] [address] [place] [address] Dr. Pravin Travis Potassium [Moles/Vol] 3.7 mmol/L Normal 3.5-5.1 [facility] Comment on above: Performed By: #### C MP #### [facility] [address] [place] [address] Dr. Pravin Travis Protein [Mass/Vol] 7.7 g/dL Normal 6.4-8.2 [facility] Comment on above: Performed By: #### C MP #### [facility] [address] [address] [address] Pravin Travis Sodium [Moles/Vol] 140 mmol/L Normal 136-145 [facility] Comment on above: Performed By: #### C MP #### [facility] [address] [address] [address] Pravin Travis Urea nitrogen [Mass/Vol] 11.0 mg/dL Normal 7.0-18.0 [facility] Comment on above: Performed By: #### C MP #### [facility] [address] [address] [address] Pravin Travis Urea nitrogen/Creatinine [Mass ratio] 9.0 mg/mg Normal [facility] Comment on above: Performed By: #### C MP #### [facility] [address] [address] [address] Pravin Travis COVID Quick Testingon 2021 Result Positive [facility] Other COVID Quick Testingon 2020 Result Negative [facility] Other Quick Fluon 08-11-2021 FLUAV Ab CF (S) [Titer] Negative [facility] Other FLUBV Ab CF (S) [Titer] Negative [facility] Other Vital Signs Date Time Vital Sign Value Performing Clinician Facility 01-09-2025 12:53-0400 Diastolic blood pressure 109 mm[Hg] Vivian Brady [facility] 01-09-2025 12:53-0400 Mean blood pressure 131 mm[Hg] Vivian Brady [facility] 01-09-2025 12:53-0400 Systolic blood pressure 174 mm[Hg] Vivian Brady [facility] 01-09-2025 12:43-0400 Blood Pressure Location Vivian Brady [facility] 01-09-2025 12:43-0400 Diastolic blood pressure 117 mm[Hg] Vivian Brady [facility] 01-09-2025 12:43-0400 Heart rate 80 /min Vivian Brady [facility] 01-09-2025 12:43-0400 Systolic blood pressure 179 mm[Hg] Vivian Brady [facility] 12-10-2024 13:07-0400 Body height 172.7 cm Cisco Furlong DO Work Phone: [facility] 12-10-2024 13:07-0400 Body mass index (BMI) [Ratio] 29.47 kg/m2 [facility] 12-10-2024 13:07-0400 Body temperature 98.4 [degF] Cisco Furlong DO Work Phone: [facility] 12-10-2024 13:07-0400 Body weight 87.91 kg Cisco Furlong DO Work Phone: [facility] 12-10-2024 13:07-0400 Diastolic blood pressure 90 mm[Hg] [facility] 12-10-2024 13:07-0400 Heart rate 102 /min Cisco Furlong [facility] 12-10-2024 13:07-0400 Respiratory rate 18 /min Cisco Furlong DO Work Phone: [facility] 12-10-2024 13:07-0400 SaO2% (BldA) [Mass fraction] 97 % Cisco Furlong DO Work Phone: [facility] 12-10-2024 13:07-0400 Systolic blood pressure 140 mm[Hg] Cisco Furlong DO Work Phone: [facility] 09-11-2024 14:23-0500 Body height 172.7 cm Cisco Furlong DO Work Phone: [facility] 09-11-2024 14:23-0500 Body mass index (BMI) [Ratio] 28.89 kg/m2 Cisco Furlong DO Work Phone: [facility] 09-11-2024 14:23-0500 Body temperature 97.9 [degF] Cisco Furlong DO Work Phone: [facility] 09-11-2024 14:23-0500 Body weight 86.18 kg Cisco Furlong DO Work Phone: [facility] 09-11-2024 14:23-0500 Diastolic blood pressure 90 mm[Hg] Cisco Furlong DO Work Phone: [facility] 09-11-2024 14:23-0500 Heart rate 105 /min Cisco Furlong DO Work Phone: [facility] 09-11-2024 14:23-0500 Respiratory rate 20 /min Cisco Furlong DO Work Phone: [facility] 09-11-2024 14:23-0500 SaO2% (BldA) [Mass fraction] 99 % Cisco Furlong DO Work Phone: [facility] 09-11-2024 14:23-0500 Systolic blood pressure 140 mm[Hg] Cisco Furlong DO Work Phone: [facility] 03-15-2024 16:08-0400 Body height 172.7 cm Cisco Furlong DO Work Phone: [facility] 03-15-2024 16:08-0400 Body mass index (BMI) [Ratio] 27.79 kg/m2 Cisco Furlong DO Work Phone: [facility] 03-15-2024 16:08-0400 Body temperature 97.7 [degF] Cisco Furlong DO Work Phone: [facility] 03-15-2024 16:08-0400 Body weight 82.92 kg Cisco Furlong DO Work Phone: [facility] 03-15-2024 16:08-0400 Diastolic blood pressure 70 mm[Hg] Cisco Furlong DO Work Phone: [facility] 03-15-2024 16:08-0400 Heart rate 79 /min Cisco Furlong DO Work Phone: [facility] 03-15-2024 16:08-0400 SaO2% (BldA) [Mass fraction] 97 % Cisco Furlong DO Work Phone: [facility] 03-15-2024 16:08-0400 Systolic blood pressure 120 mm[Hg] Cisco Furlong DO Work Phone: [facility] 03-03-2024 14:00-0400 Diastolic blood pressure 95 mm[Hg] DO Cisco Furlong Work Phone: [facility] 03-03-2024 14:00-0400 Heart rate 79 /min DO Cisco Furlong Work Phone: [facility] 03-03-2024 14:00-0400 Respiratory rate 18 /min DO Cisco Furlong Work Phone: [facility] 03-03-2024 14:00-0400 SaO2% (BldA) [Mass fraction] 95 % DO Cisco Furlong Work Phone: [facility] 03-03-2024 14:00-0400 Systolic blood pressure 147 mm[Hg] DO Cisco Furlong Work Phone: [facility] 03-03-2024 11:20-0400 Body temperature 98.2 [degF] DO Cisco Furlong Work Phone: [facility] 03-03-2024 11:18-0400 Body height 172.72 cm DO Cisco Furlong Work Phone: [facility] 03-03-2024 11:18-0400 Body weight 80.65 kg DO Cisco Furlong Work Phone: [facility] 02-02-2024 11:29-0400 Body temperature 98.6 [degF] Didi Orzech [facility] 02-02-2024 11:29-0400 Diastolic blood pressure 81 mm[Hg] Didi Orzech [facility] 02-02-2024 11:29-0400 Heart rate 77 /min Didi Orzech [facility] 02-02-2024 11:29-0400 Respiratory rate 16 /min Didi Orzech [facility] 02-02-2024 11:29-0400 Systolic blood pressure 136 mm[Hg] Didi Orzech [facility] 01-30-2024 01:11-0400 Heart rate 159 /min DO Cisco Furlong Work Phone: [facility] 01-30-2024 00:30-0400 Respiratory rate 22 /min DO Cisco Furlong Work Phone: [facility] 01-30-2024 00:30-0400 SaO2% (BldA) [Mass fraction] 97 % DO Cisco Furlong Work Phone: [facility] 01-29-2024 23:38-0400 Diastolic blood pressure 95 mm[Hg] DO Cisco Furlong Work Phone: [facility] 01-29-2024 23:38-0400 Systolic blood pressure 136 mm[Hg] DO Cisco Furlong Work Phone: [facility] 01-29-2024 22:45-0400 Body height 172.72 cm DO Cisco Furlong Work Phone: [facility] 01-29-2024 22:45-0400 Body weight 86.2 kg DO Cisco Furlong Work Phone: [facility] 01-29-2024 22:44-0400 Body temperature 98.3 [degF] DO Cisco Furlong Work Phone: [facility] 12-09-2023 08:47-0400 Body height 172.7 cm Michellenisha Francis HOSPICE COMMUNITY LIAISON-LAST DIPPER Work Phone: [facility] 12-09-2023 08:47-0400 Body mass index (BMI) [Ratio] 30.08 kg/m2 Michellenisha Francis HOSPICE COMMUNITY LIAISON-LAST DIPPER Work Phone: [facility] 12-09-2023 08:47-0400 Body temperature 98.29 [degF] Michellenisha Francis HOSPICE COMMUNITY LIAISON-LAST DIPPER Work Phone: [facility] 12-09-2023 08:47-0400 Body weight 89.72 kg Michelle Tito HOSPICE COMMUNITY LIAISON-LAST DIPPER [facility] 12-09-2023 08:47-0400 Diastolic blood pressure 86 mm[Hg] Michelle Tito HOSPICE COMMUNITY LIAISON-LAST DIPPER Work Phone: [facility] 12-09-2023 08:47-0400 Heart rate 82 /min Michelle Tito HOSPICE COMMUNITY LIAISON-LAST DIPPER Work Phone: [facility] 12-09-2023 08:47-0400 Respiratory rate 18 /min Michelle Francis APRNCURTIS [facility] 12-09-2023 08:47-0400 SaO2% (BldA) [Mass fraction] 96 % Michelle Francis APRN-LAST DIPPER Work Phone[facility] 12-09-2023 08:47-0400 Systolic blood pressure 120 mm[Hg] Michelle PHAN Work Phone[facility] 09-01-2021 13:30-0500 Body height 172.72 cm Tawnya Andre Other [facility] [employer] Other 09-01-2021 13:30-0500 Body mass index (BMI) [Ratio] 31.93 kg/m2 Tawnya Andre Other [facility] [employer] Other 09-01-2021 13:30-0500 Body temperature 97.4 [degF] Tawnya Andre Other [facility] [employer] Other 09-01-2021 13:30-0500 Body weight 95.26 kg Tawnya Andre Other [employer] Other 09-01-2021 13:30-0500 Respiratory rate 18 /min Tawnya Andre Other [facility] Other 09-01-2021 13:30-0500 SaO2% (BldA) [Mass fraction] 98 % Tawnya Andre Other [facility] [employer] Other 08-11-2021 12:00-0500 Body height 172.72 cm Mary King Other [facility] [employer] Other 08-11-2021 12:00-0500 Body mass index (BMI) [Ratio] 31.93 kg/m2 Mary King Other [facility] [employer] Other 08-11-2021 12:00-0500 Body temperature 96.9 [degF] Mary King Other [facility] [employer] Other 08-11-2021 12:00-0500 Body weight 95.26 kg Mary King Other [facility] [employer] Other 08-11-2021 12:00-0500 Respiratory rate 18 /min Mary King Other [facility] [employer] Other 08-11-2021 12:00-0500 SaO2% (BldA) [Mass fraction] 96 % Mary King Other [facility] [employer] Other Encounters Encounter Date Encounter Type Care Provider Facility Start: 01-28-2025 End: 01-29-2025 Refill Cisco Carrillong DO Work Phone: [facility] Start: 01-26-2025 End: 01-28-2025 Refill Cisco Thomason Furlong DO Work Phone: [facility] Start: 01-24-2025 End: 01-24-2025 ambulatory Vivian Brady Facility:[facility] Start: 01-24-2025 End: 01-24-2025 Patient encounter procedure Vivian Brady [facility] Start: 01-16-2025 End: 01-16-2025 Transcribe Orders Vivian Brady MD Work Phone: Referring Physician Comment on above: Constipation by outl et dysfunction (Primary Dx); Stress-related physiological response affecting medical condition Start: 01-09-2025 End: 01-09-2025 ambulatory Vivian Brady Facility:[facility] Start: 01-09-2025 End: 01-09-2025 Patient encounter procedure Vivian JiaJessa Brady [facility] Start: 12-31-2024 ambulatory Didi Allen Facility: [facility] Start: 12-31-2024 End: 12-31-2024 Telephone encounter Linda Castro [facility] Start: 12-26-2024 End: 12-26-2024 Orders Only Cisco Carcamolindenkiley DO Work Phone: [facility] Comment on above: Chronic idiopathic c onstipation (Primary Dx); Hepatitis C virus infection without hepatic coma, unspecified chronicity Start: 12-20-2024 End: 12-20-2024 Orders Only Cisco Carcamolindenkiley DO Work Phone: [facility] Start: 12-17-2024 End: 12-26-2024 Orders Only Ciscosherman Carcamolindenkiley DO Work Phone: [facility] Comment on above: Irritable bowel synd chaitanya with both constipation and diarrhea (Primary Dx) Start: 12-14-2024 End: 12-14-2024 Orders Only Cisco Carcamolindenkiley DO Work Phone: [facility] Comment on above: Anal fissure (Primar y Dx) Start: 12-12-2024 End: 12-12-2024 Refill Ciscosherman Blanc DO Work Phone: [facility] Start: 12-10-2024 End: 12-10-2024 ambulatory CISCO Paddy [facility] Start: 12-10-2024 Encounter for genera l adult medical examination without abnormal findings [facility] Start: 12-10-2024 End: 12-10-2024 Patient encounter status Cisco Blanc DO Work Phone: [facility] Start: 12-10-2024 End: 12-10-2024 Periodic preventive med est patient 40-64yrs Cisco Blanc DO Work Phone: [facility] Comment on above: Well adult exam ([facility] lawson Dx); Anxiety; Overweight; Iron overload; Encounter for screening for malignant neoplasm of prostate; Ex-smoker; Hypogonadism in male; Severe episode of recurrent major depressive disorder, without psychotic features ([facility]); Irritable bowel syndrome with both constipation and diarrhea Start: 12-10-2024 End: 12-10-[address] [facility] Start: 12-10-2024 Encounter for genera l adult medical examination without abnormal findings [facility] Start: 11-02-2024 End: 11-02-2024 Orders Only Cisco Blanc DO Work Phone: [facility] Start: 10-15-2024 End: 10-15-2024 Orders Only Cisco Blanc DO Work Phone: [facility] Start: 09-26-2024 End: 10-03-2024 Telephone encounter [facility] Work Phone: [facility] Start: 09-13-2024 End: 09-13-2024 Orders Only Cisco Blanc DO Work [facility]: [facility] Start: 09-12-2024 End: 09-13-2024 Orders Only Cisco Blanc DO Work Phone: [facility] Comment on above: Irritable bowel synd chaitanya with both constipation and diarrhea (Primary Dx) Start: 09-11-2024 End: 09-11-2024 Office outpatient visit 25 minutes Cisco Blanc DO Work Phone: [facility] Comment on above: Irritable bowel synd chaitanya with both constipation and diarrhea (Primary Dx); Essential hypertension, benign; Anxiety; Encounter for screening for malignant neoplasm of prostate Start: 09-11-2024 End: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 Can we please get him a referral to a different gastro. Also [facility] Nurse Danuta was rude and getting an attitude when I was explaining that [facility] is not taking new patients and that is why we referred him to a specialist Can we get this as an urgent referral Send a referral to GI specialist at [facility] documented in this encounter [facility] 09-12-2024 Telephone encounter [facility] Dr acharya did his colonoscopy. He wants him to see [facility] as a specialist instead. 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 Can we please get him a referral to a different gastro. Also [facility] Nurse Danuta was rude and getting an attitude when I was explaining that [facility] is not taking new patients and that is why we referred him to a specialist [facility] 09-12-2024 Telephone encounter Note Can we get this as an urgent referral [facility] 09-12-2024 Telephone encounter Note Send a referral to GI specialist at [facility] 09-12-2024 Miscellaneous Notes Patient called, metamucil is not covered by insurance but they will cover benifiber 240g [facility] [place] documented in this encounter [facility] 09-12-2024 Telephone encounter Note Patient called, metamucil is not covered by insurance but they will cover benifiber 240g [facility] [place] [facility] 09-11-2024 History of Present illness Narrative Subjective Patient ID: Chai Russell is a 54 y.o. male. Chai presents today for recheck of his abdominal pain. He had to go to the ER again because of severe abdominal pain. He had a CT scan and labs and no serious problem was uncovered. This has been going on for about a year now. He does have an appointment coming up with a neck band operator in September. He had to cancel his last appointment because he was having diarrhea and was afraid to leave the house because he might have an accident. The ER did give him Bentyl which did help. He did not think that less than helped at all. He stopped the FiberCon because it was not helping. He would rather have Metamucil. He called the neck band operator office and they suggested a cleaned out. He has been searching the Internet trying to find a diet that would work for him. Initially his issue was more constipation and now he has been having a lot of diarrhea. It does alternate back and forth. He has been cutting down his food intake. He does not have a fever. He had a colonoscopy last year and they found 3 polyps, diverticulosis and dilated veins. He has been taking testosterone on his own. He gets it on the Internet on the [employer] web . He used to take benzodiazepines and admitted to abuse of benzodiazepines but has not been taking them at all lately except for a prescription he got on the Internet for 20 pills. He took those in 20 days and then stopped. They do work when he takes them. He did see a psychiatrist nurse practitioner who would not prescribe benzodiazepines. They prescribed him Vistaril, BuSpar and an antidepressant but that cocktail was ineffective. He took Seroquel in the past which worked initially but then eventually it lost its effectiveness. He stopped his blood pressure medications because they did not seem to lower his blood pressure. Every time he took it it was still 140/90 or so. Abdominal Pain This is a chronic problem. The current episode started more than 1 year ago. The onset quality is undetermined. The problem occurs constantly. The problem has been unchanged. The pain is located in the generalized abdominal region. The pain is severe. The quality of the pain is cramping. The abdominal pain does not radiate. Associated symptoms include constipation and diarrhea. The following portions of the patient's history were reviewed and updated as appropriate: allergies, current medications, past family history, past medical history, past social history, past surgical history, problem list, and medication reconciliation was completed including current medication and post discharge medication. Review of Systems Constitutional: Positive for unexpected weight change (Weight actually increased in the last 3 months). Respiratory: Negative. Gastrointestinal: Positive for abdominal distention, abdominal pain, constipation and diarrhea. Psychiatric/Behavioral: Positive for sleep disturbance. The patient is nervous/anxious. Objective Physical Exam Vitals reviewed. Exam conducted with a jr. java developer present (Leilani Han MS 3). Constitutional: General: He is not in acute distress. Appearance: He is overweight. He is not ill-appearing, toxic-appearing or diaphoretic. HENT: Head: Normocephalic. Pulmonary: Effort: Pulmonary effort is normal. Abdominal: General: Bowel sounds are normal. There is no distension. Palpations: Abdomen is soft. There is no mass. Tenderness: There is abdominal tenderness. There is no right CVA tenderness, left CVA tenderness, guarding or rebound. Hernia: No hernia is present. Neurological: General: No focal deficit present. Mental Status: He is alert and oriented to person, place, and time. Gait: Gait normal. Psychiatric: Attention and Perception: Attention and perception normal. Mood and Affect: Mood is anxious. Speech: Speech is rapid and pressured. Behavior: Behavior normal. Behavior is cooperative. Thought Content: Thought content normal. Cognition and Memory: Cognition and memory normal. Judgment: Judgment normal. Assessment/Plan Chai was seen today for abdominal pain. Diagnoses and all orders for this visit: Irritable bowel syndrome with both constipation and diarrhea - TSH with Reflex; Future - CBC; Future - dicyclomine (BENTYL) 10 mg capsule; Take 2 capsules (20 mg total) by mouth every 6 (six) hours as needed (cramping and bloating). I suspect his underlying problem is irritable bowel but now he has both constipation and diarrhea. GI recommended a bowel cleanout with MiraLax. I will send MiraLax in for him. Bentyl does seem to help but he would like a higher dose. We will go up to 20 mg every 6 hours as needed. Check TSH and CBC. Ironically, he has gained weight since visit in February. Keep GI appointment. Even if he has diarrhea encouraged him to keep it and he can wear briefs if he has an accident. Essential hypertension, benign - TSH with Reflex; Future - Comprehensive metabolic panel; Future - CBC; Future Check TSH, CMP and CBC. His blood pressure is elevated. He declines medications. Anxiety - TSH with Reflex; Future Check TSH. We discussed treatment. He feels that only the benzodiazepines worked for him. I am not comfortable prescribing this since he has a abuse them in the past. We discussed other medications and he has tried many of them without success. He is not interested in any other medications right now. Encounter for screening for malignant neoplasm of prostate - Prostatic specific antigen screen; Future Check PSA to screen for prostate cancer. He would pursue further evaluation and treatment. Other orders - psyllium husk (MetamuciL) 3.4 gram/5.4 gram powder; Take 3.4 g by mouth in the morning. - polyethylene glycol (MIRALAX) 17 gram/dose powder; Take 17 g by mouth in the morning. documented in this encounter [facility] 04-04-2024 Miscellaneous Notes ----- Message from Dr. Cisco Blanc DO sent at 03/15/2024 7:03 PM EDT ----- Regarding: GI/BP recheck Please set up Mailbox full Scheduled documented in this encounter [facility] 04-04-2024 Telephone encounter Note ----- Message from Dr. Cisco Blanc DO sent at 03/15/2024 7:03 PM EDT ----- Regarding: GI/BP recheck Please set up [facility] 04-04-2024 Telephone encounter Note Mailbox full T [facility] 04-04-2024 Telephone encounter Note Scheduled [facility] 03-15-2024 History of Present illness Narrative Subjective Patient ID: Chai Russell is a 53 y.o. male. Chai presents for an ER follow-up. He has a 6 month history of bowel problems. He normally would have 1 normal BM a day. He was being treated for a benzodiazepine use disorder and had issues with constipation. He was taking miralax 17 gm daily and still got constipated so he used mag citrate and it helped. He was also given colace and over time it made his stools pasty. He was taking miralax 3 times a day and he was getting liquidy stools-6 and 7 on Ogden stool scale. He used fiber supplement in the past with benefit but he stopped it along the way for some reason. He doesn't have a fever or blood. He had a colonoscopy recently. He has lost 40-50# since this started. He said his diet was bad before this started as he would eat fast food all the time and then he started to eat healthy and then he started having problems. He went to the ER while in rehab and he had constipation so bad that he had urinary retention and had a murray put in. He didn't want to go back to rehab with the murray so it was pulled. He continued to have problems but it is mostly liquidy now. He has been to [facility] ER 3 times. He was given something for pain and told he had a rectal fissue but the suppository and NTG ointment were not covered and needed a PA but the ER refused. He remembered he got meloxicam for pain and it helped. He is having pain and cramping in b/l lower abdomen. He was found to have [address] scan. There was also an abnormality of his GB but he was not fasting and recommended to have a GBUS fasting. He doesn't have any RUQ pain. His issue now is mainly crampy pain, rectal pain and diarrhea. He doesn't see the GI specialist until June. The following portions of the patient's history were reviewed and updated as appropriate: allergies, current medications, past family history, past medical history, past social history, past surgical history, problem list, and medication reconciliation was completed including current medication and post discharge medication. Review of Systems Constitutional: Positive for unexpected weight change. Negative for fever. Gastrointestinal: Positive for abdominal pain and diarrhea. Genitourinary: Negative. Psychiatric/Behavioral: Negative. Objective Physical Exam Vitals reviewed. Constitutional: General: He is not in acute distress. Appearance: He is overweight. He is not ill-appearing. Cardiovascular: Rate and Rhythm: Normal rate and regular rhythm. Pulses: Normal pulses. Heart sounds: Normal heart sounds. No murmur heard. Pulmonary: Effort: Pulmonary effort is normal. No respiratory distress. Breath sounds: Normal breath sounds. No wheezing or rales. Abdominal: General: Bowel sounds are normal. There is no distension. Palpations: Abdomen is soft. There is no mass. Tenderness: There is abdominal tenderness (RLQ and LLQ). There is no guarding or rebound. Hernia: A hernia is present. Skin: General: Skin is warm and dry. Neurological: General: No focal deficit present. Mental Status: He is alert and oriented to person, place, and time. Psychiatric: Attention and Perception: Attention normal. Mood and Affect: Mood is anxious. Speech: Speech normal. Behavior: Behavior normal. Behavior is cooperative. Thought Content: Thought content normal. Judgment: Judgment normal. Assessment/Plan Chai was seen today for follow-up. Diagnoses and all orders for this visit: Irritable bowel syndrome with both constipation and diarrhea He has had multiple ER visits, colonoscopy and tests without uncovering anything too serious. He has been using miralax TID with colace and stools are 6-7 on BSS. I recommended to stop those meds and start a fiber supplement. Will give Levsin and meloxicam for crampy pain. He isn't having any RUQ pain, N/V or indigestion so will hold off on GBUS. Umbilical hernia without obstruction and without gangrene I don't think it is causing cramping and diarrhea but may need repaired in future. Incisional hernia, without obstruction or gangrene I don't think it is causing cramping and diarrhea but may need repaired in future. Anal fissure Will treat with analpram cream BID. Should heal on its own. Looks like that is formulary. Other orders - hydrocortisone-pramoxine (ANALPRAM-HC) 1-1 % rectal cream; Insert 1 Application into the rectum in the morning and 1 Application before bedtime. - hyoscyamine (LEVSIN/SL) 0.125 mg SL tablet; Take 1 tablet (125 mcg total) by mouth every 4 (four) hours as needed for cramping. - polycarbophil (FIBERCON) 625 mg tablet; Take 1 tablet (625 mg total) by mouth in the morning and 1 tablet (625 mg total) before bedtime. - meloxicam (MOBIC) 15 mg tablet; Take 1 tablet (15 mg total) by mouth daily as needed for pain (cramping). documented in this encounter [facility] 02-13-2024 Miscellaneous Notes Patient said suflave is 130 dollars, is there something else he can try or a coupon to use Pt has medicaid My Bad Please SEND in the SUPREP. . Message noted. The only prep that is covered is the old fashioned Golytely prep He is Medicaid so whatever his insurance covers Message noted. Rx for GoLYTELY sent to pharmacy documented in this encounter [facility] 02-13-2024 Telephone encounter Note Patient said nandoe is 130 dollars, is there something else he can try or a coupon to use [facility] 02-13-2024 Telephone encounter Note Pt has medicaid My Bad Please SEND in the SUPREP. . [facility] 02-13-2024 Telephone encounter Note Message noted. The only prep that is covered is the old fashioned Golytely prep [facility] 02-13-2024 Telephone encounter Note He is Medicaid so whatever his insurance covers [facility] 02-13-2024 Telephone encounter Note Message noted. Rx for GoLYTELY sent to pharmacy [facility] 01-31-2024 Miscellaneous Notes Patient called and was in the ER for Urinary re tension. His bowel movements ar still not good. Since I can not get him in for an ER follow up soon what do you suggest he do? He does see urology on He can use MiraLax 17 g in 8 oz of water daily Left message via VM documented in this encounter [facility] 01-31-2024 Telephone encounter Note Patient called and was in the ER for Urinary re tension. His bowel movements ar still not good. Since I can not get him in for an ER follow up soon what do you suggest he do? He does see urology on [facility] 01-31-2024 Telephone encounter Note He can use MiraLax 17 g in 8 oz of water daily [facility] 01-31-2024 Telephone encounter Note Left message via [facility] 12-09-2023 History of Present illness Narrative [address] [place] [address] Patient: Chai Russell Date of : 1970 Encounter Date: 12/09/2023 History of Present Illness: The patient is a 53 y.o. male, an established patient, and is here for Chief Complaint Patient presents with Chronic Bowel issues . HPI Patient has been struggling with chronic constipation for years. He has tried eating more, not eating or fasting, trying only liquids or trying a vegan diet but none of these seemed to improve his symptoms. Patient has had a 30 lb weight loss in the last 6 months or so from trying various things for his constipation he thinks. His stools mostly hard and dry or when he takes stool softeners pencil thin like a 4. On the Ogden stool scale and he has tried Metamucil and MiraLax. He denies any hemorrhoids or blood in his stool. His last colonoscopy was 4 years ago that showed polyps and diverticulosis and he knows he is due for another colonoscopy next year. Patient has been struggling with weaning off his Xanax. He was seeing an online provider through [place] who is prescribing this for him and he was on 2 mg and is now down to 1.5 mg. They originally told him that they would wean him down over a six-month. But he missed his last appointment and now they will not refill his medication. The last time he was weaned off of Xanax was when he was incarcerated and he became combative with the correction officers because he felt out of control. He was a past heavy drug user but now only takes Xanax. States he does not even use alcohol. He states the Xanax keeps him calm and keeps 'the crazy away'. Patient also has an online provider prescribing him his testosterone injections and anastrozole. Problem List Items Addressed This Visit None Visit Diagnoses Irritable bowel syndrome with constipation - Primary Gastroesophageal reflux disease, unspecified whether esophagitis present 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 ([facility]) Past Medical, Family, and Social History Update: The following portions of the patient's history were reviewed and updated as appropriate: allergies, current medications, past family history, past medical history, past social history, past surgical history and problem list. Past Medical History: Diagnosis Date Anxiety Depression Past Surgical History: Procedure Laterality Date APPENDECTOMY COLONOSCOPY N/A 10/17/2019 Performed by Jennyfer Acharya DO at [facility] DECOMPRESSION FASCIOTOMY LEG 12/24/2015 Current Outpatient Medications Medication Sig Dispense Refill ALPRAZolam (XANAX) 1 mg tablet Take 1 tablet (1 mg total) by mouth nightly as needed for anxiety. anastrozole (ARIMIDEX) 1 mg chemo tablet Take by mouth daily metoprolol tartrate (LOPRESSOR) 25 mg tablet take 1 tablet by mouth twice a day 60 tablet 5 testosterone cypionate (DEPOTESTOTERONE CYPIONATE) 100 mg/mL injection Inject 1 mL (100 mg total) into the appropriate muscle. hydrOXYzine (VISTARIL) 50 mg capsule Take 1 capsule (50 mg total) by mouth 3 (three) times a day as needed for anxiety. 30 capsule 1 omeprazole (PriLOSEC) 20 mg capsule Take 1 capsule (20 mg total) by mouth in the morning. 30 capsule 1 No current facility-administered medications for this visit. (All medications reviewed and updated by provider since last office visit or hospitalization) Allergies: Patient has no known allergies. Tobacco History: Social History Tobacco Use Smoking Status Former Current packs/day: 0.00 Average packs/day: 1 pack/day for 34.0 years (34.0 ttl pk-yrs) Types: Cigarettes Start date: 07/23/1985 Quit date: 12/20/2018 Years since quittin.9 Passive exposure: Past Smokeless Tobacco Never Tobacco Comments vape, today (If patient a smoker, smoking cessation counseling offered) Social History: Social History Substance and Sexual Activity Alcohol Use Yes Comment: Occasional Review of Systems: Review of Systems Constitutional: Positive for unexpected weight change (19 lb weight loss since January of 2023). Respiratory: Negative. Cardiovascular: Negative. Gastrointestinal: Positive for abdominal distention, abdominal pain, constipation, diarrhea and nausea. Negative for anal bleeding, blood in stool and vomiting. Neurological: Negative. Psychiatric/Behavioral: Positive for agitation, behavioral problems, decreased concentration, dysphoric mood and sleep disturbance. Negative for confusion, hallucinations, self-injury and suicidal ideas. The patient is nervous/anxious. The patient is not hyperactive. Physical Exam: BP 120/86 (BP Site: Left Arm, BP Postition: Sitting) Pulse 82 Temp 36.8 C (98.3 F) (Oral) Resp 18 Ht 172.7 cm (5' 8 ) Wt 89.7 kg (197 lb 12.8 oz) SpO2 96% BMI 30.08 kg/m Physical Exam Vitals reviewed. Constitutional: Appearance: Normal appearance. He is obese. HENT: Head: Normocephalic and atraumatic. Cardiovascular: Rate and Rhythm: Normal rate and regular rhythm. Heart sounds: Normal heart sounds. Pulmonary: Effort: Pulmonary effort is normal. Breath sounds: Normal breath sounds. Abdominal: General: Bowel sounds are normal. There is distension. Palpations: Abdomen is soft. Tenderness: There is abdominal tenderness (All quadrants). There is no guarding or rebound. Hernia: A hernia (Umbilicus) is present. Musculoskeletal: Right lower leg: No edema. Left lower leg: No edema. Skin: General: Skin is warm. Capillary Refill: Capillary refill takes less than 2 seconds. Neurological: General: No focal deficit present. Mental Status: He is alert and oriented to person, place, and time. Psychiatric: Mood and Affect: Mood is anxious. Behavior: Behavior is agitated. Comments: Fidgeting in exam seat Assessment and Plan: Chai was seen today for chronic bowel issues. Diagnoses and all orders for this visit: Irritable bowel syndrome with constipation Gastroesophageal reflux disease, unspecified whether esophagitis present 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 ([facility]) Other orders - omeprazole (PriLOSEC) 20 mg capsule; Take 1 capsule (20 mg total) by mouth in the morning. - hydrOXYzine (VISTARIL) 50 mg capsule; Take 1 capsule (50 mg total) by mouth 3 (three) times a day as needed for anxiety. Follow-up: Start Linzess, mechanism of action and side effects discussed with patient and 12 sample tabs were given from the office plus a free 30 day trial card. He should stop NSAIDs that he was taking for his abdominal pain but it is likely making his pain in his epigastric area worse. He can start PPI for 2 weeks. X-rays and CT at the beginning of the month from ER were reviewed today. He should slowly wean off his Xanax. He understands we will not prescribe this in the office. Resources such as [facility] in [place] were given. It was also recommended that he apply at [facility] for primary care services and psychiatric services as he has no insurance due to not being able to work right now/ states his appointments are very expensive. He tried to apply for Medicaid but was denied as he has been taking advanced his on his credit cards and they considered that income. Hydroxyzine started today to help him get through the benzodiazepine withdrawal and anxiety symptoms associated. He was cautioned on over-sedation with hydroxyzine but he states this does not sedate him. Follow-up as needed if constipation does not improve. SYLVESTER LEVIN APRN-CNP 12/09/23 1230 documented in this encounter [facility] 09-01-2021 Evaluation note Encounter Date Diagnosis Assessment [...] Patient care instructions given in writting by [facility] document. [facility] Other 12-21-2021 Evaluation note* Encounter Date Diagnosis Assessment Notes Treatment Notes Treatment Clinical Notes Jul, Contact with and (suspected) exposure [...] has COVID that you follow current CDC recommendations. These can be found at CDC.GOV. Follow [...] Patient care instructions given in writting by [facility] document. [facility] [employer] Other Evaluation + Plan note Future Appointments Appointment Date:04/03/2024 01:00:00 PM Scheduled Provider:JOSEPH Allen APRN, Didi Martin Location:[facility] Appointment Type:URO Office Visit [facility] Evaluation + Plan note Future Appointments Appointment Date:04/11/2025 10:45:00 AM Scheduled Provider:Vivian Brady MD Location:[facility] Appointment Type:BAD Follow Up [facility] evaluation noteNo assessment information available [facility] Work Phone: evaluation note* Diagnosis Irritable bowel syndrome with both constipation and diarrhea- Primary Essential hypertension, benign Anxiety Anxiety state, unspecified Encounter for screening for malignant neoplasm of prostate [facility] Diagnosis Irritable bowel syndrome with both constipation and diarrhea- Primary [facility] Diagnosis Irritable bowel syndrome with constipation- Primary Irritable bowel syndrome Gastroesophageal reflux disease, unspecified whether esophagitis present 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 ([facility]) [facility] Diagnosis Change in bowel habits- Primary Other symptoms involving digestive system Polyp of colon, unspecified part of colon, unspecified type [facility] Diagnosis Irritable bowel syndrome with both constipation and diarrhea- Primary Umbilical hernia without obstruction and without gangrene Incisional hernia, without obstruction or gangrene Anal fissure [facility] Diagnosis Well adult exam- Primary Routine general medical examination at a health care facility Anxiety Anxiety state, unspecified Overweight Iron overload Disorders of iron metabolism Encounter for screening for malignant neoplasm of prostate Ex-smoker Personal history of tobacco use, presenting hazards to health Hypogonadism in male Severe episode of recurrent major depressive disorder, without psychotic features (CMS-HCC) Irritable bowel syndrome with both constipation and diarrhea [facility] Diagnosis Anal fissure- Primary [facility] Diagnosis Irritable bowel syndrome with both constipation and diarrhea- Primary [facility] Diagnosis Chronic idiopathic constipation- Primary Unspecified constipation Hepatitis C virus infection without hepatic coma, unspecified chronicity [facility] Diagnosis 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 Outlet dysfunction constipation Stress-related physiological response affecting medical condition Psychic factors associated with diseases classified elsewhere documented in this encounter [facility] general Narrative - Reported* Type Description Date Medical History insomnia Medical History anxiety Medical History HTN Surgical History appendix removed Surgical History compartment syndrome left hand 2016 Hospitalization History see surgical hx Crocodile Gold Other Hospital course Narrative No data available for this section [facility] Discharge instructions Additional Instructions Wear leg bag with Murray catheter Follow-up with urology [facility] are [facility] Phone: Hospital Discharge instructions No data available for this section [facility] Instructions* Attachments The following attachments cannot be sent through Care Everywhere. * IBS Diet (Czech) documented in this encounterProRiverside [facility] SystemInstructionsNot on file documented in this encounterProRiverside Methodist Hospital SystemInstructionsNot on file documented in this encounterProRiverside Methodist Hospital SystemInstructionsNot on file documented in this encounterProCentral [facility] SystemInstructionsNot on file documented in this encounterProCentral [facility] Health SystemInstructionsNot on file documented in this encounterProCentral [facility] Health SystemInstructionsNot on file documented in this encounterProCentral [facility] Health SystemInstructionsNot on file documented in this encounterProCentral [facility] Health SystemInstructionsNot on file documented in this encounterProRiverside Methodist Hospital SystemInstructionsNot on file documented in this encounterProCentral [facility] Health SystemInstructionsNot on file documented in this encounterProCentral [facility] CollegeFanz SystemInstructionsNot on file documented in this encounterProCentral [facility] CollegeFanz SystemInstructionsNot on file documented in this encounterDelaware County Hospital SystemProgress note No data available for this section [facility] Reason for referral (narrative)* Medication Prior Authorization - Pending Review Specialty Diagnoses / Procedures Referred By Contac t Referred To Contact Cisco Blanc DO [address], [facility] [place] [address] Phone: tel: fax: Referral ID Status Reason Start Date Expiration Date V isits Requested Visits Authorized [id number] Pending Review 1 1 [facility]Chat[facility] SystemReason for referral (narrative)* Medication Prior Authorization - Pending Review Specialty Diagnoses / Procedures Referred By Contac t Referred To Contact Cisco Blanc DO [address], [facility] [place] [address] Phone: tel: fax: Referral ID Status Reason Start Date Expiration Date V isits Requested Visits Authorized [id number] Pending Review 1 1 [facility] HospitalAirPOS SystemReason for referral (narrative)* Medication Prior Authorization - Pending Review Specialty Diagnoses / Procedures Referred By Contac t Referred To Contact Cisco Blanc DO [address], [facility] [place] [address] Phone: tel: fax: Referral ID Status Reason Start Date Expiration Date V isits Requested Visits Authorized [id number] Pending Review 1 1 [facility] System Summary Purpose Family History No Family History Records FoundNo Family History Records Found No data available for this section No Family History Records Found No data available for this section No Family History Records FoundNo Family History Records FoundNo Family History Records Found No data available for this section No Family History Records Found No data available for this section Advance Directives Advance Directive Response Recorded Date/ Time Advance Directives No July 3:32pm Date Activated Date Inactivated Comments 03/04/2021 9:32 AM 03/10/2021 10:20 PM Date Activated Date Inactivated Comments 01/16/2018 1:54 PM 01/17/2018 3:11 PM Date Activated Date Inactivated Comments 03/04/2021 9:32 AM 03/10/2021 10:20 PM Date Activated Date Inactivated Comments 01/16/2018 1:54 PM 01/17/2018 3:11 PM Chief Complaint and Reason for Visit Chief Complaint urogential Chief Complaint urogential unable to urnitate Reason for Referral Specialty Diagnoses / Procedures Referred By Hung almanzar Referred To Contact Cisco Blanc DO [address], [facility] [place] [address] Referral ID Status Reason Start Date Expiration Date V isits Requested Visits Authorized [id number] Pending Review 03/14/2024 03/14/2025 1 1 Specialty Diagnoses / Procedures Referred By Hung t Referred To Contact Diagnoses Change in bowel habits Polyp of colon, unspecified part of colon, unspecified type Procedures Colonoscopy Cisco Blanc DO [address], [facility] [place] [address] Referral ID Status Reason Start Date Expiration Date V isits Requested Visits Authorized [id number] Pending Review 02/05/2024 02/04/2025 1 1 Additional Source Comments (unrecognized sect ion and content) No Status Records FoundNo Status Records FoundNo Status Records FoundNo Status Records FoundNo Status Records FoundNo Status Records FoundNo Status Records Found INFORMATION SOURCE (unrecogn ized section and content) DATE CREATED AUTHOR 02/14/2018 [facility] DATE CREATED AUTHOR AUTHOR'S ORGANIZ ATION 03/29/2022 [facility] DATE CREATED AUTHOR AUTHOR'S ORGANIZ ATION 03/19/2024 [facility] DATE CREATED AUTHOR AUTHOR'S ORGANIZ ATION 05/18/2024 [facility] DATE CREATED AUTHOR AUTHOR'S ORGANIZ ATION 12/10/2024 [facility] DATE CREATED AUTHOR AUTHOR'S ORGANIZ ATION 12/11/2024 [facility] DATE CREATED AUTHOR AUTHOR'S ORGANIZ ATION 01/26/2025 [facility] REASON FOR VISIT (unrecogniz ed section and content) Reason Comments Abdominal Pain Reason Onset Date Comments Med Refill 09/11/2024 Reason Comments Chronic Bowel issues Reason Comments Follow-up Reason Comments Annual Exam Reason Onset Date Comments Med Refill 12/12/2024 Reason Comments Med Change Request Reason Onset Date Comments Med Refill 12/31/2024 Reason Onset Date Comments Med Refill 01/26/2025 Reason Comments Med Change Request Care Teams (unrecognized sec tion and content) [...] March 03, 2024 End: March 03, 2024 Retail Sales Associate Seasonal Relationship Specialty Start Date End Date Carlos Albertoclyde Cisco PaddyDO [address], [place] [address] PCP - General Family Medicine 12/19/19 Retail Sales Associate Seasonal Relationship Specialty Start Date End Date Cisco Blanc PaddyDO [address] [place] [address] PCP - General Family Medicine 12/19/19 Retail Sales Associate Seasonal Relationship Specialty Start Date End Date Cisco Blanc PaddyDO [address], [place] [address] PCP - General Family Medicine 12/19/19 Retail Sales Associate Seasonal Relationship Specialty Start Date End Date Cisco Blanc DO [address] [place] [address] PCP - General Family Medicine 12/19/19 Retail Sales Associate Seasonal Relationship Specialty Start Date End Date Cisco Blanc DO [address] [place] [address] PCP - General Family Medicine 12/19/19 Retail Sales Associate Seasonal Relationship Specialty Start Date End Date Cisco Blanc DO [address] [place] [address] PCP - General Family Medicine 12/19/19 Retail Sales Associate Seasonal Relationship Specialty Start Date End Date Cisco Blanc DO [address] [place] [address] PCP - General Family Medicine 12/19/19 Retail Sales Associate Seasonal Relationship Specialty Start Date End Date Cisco Blanc DO [address] [place] [address] PCP - General Family Medicine 12/19/19 Retail Sales Associate Seasonal Relationship Specialty Start Date End Date Cisco Blanc DO [address] [place] [address] PCP - General Family Medicine 12/19/19 Retail Sales Associate Seasonal Relationship Specialty Start Date End Date Carlos AlbertolindenCisco cao DO [address] [place] [address] PCP - General Family Medicine 12/19/19 Retail Sales Associate Seasonal Relationship Specialty Start Date End Date Cisco Blanc DO [address] [place] [address] PCP - General Family Medicine 12/19/19 Retail Sales Associate Seasonal Relationship Specialty Start Date End Date Cisco Blanc DO [address] [place] [address] PCP - General Family Medicine 12/19/19 Retail Sales Associate Seasonal Relationship Specialty Start Date End Date Cisco Blanc DO [address] [place] [address] PCP - General Family Medicine 12/19/19 Retail Sales Associate Seasonal Relationship Specialty Start Date End Date Cisco Blanc DO [address] [place] [address] PCP - General Family Medicine 12/19/19 Retail Sales Associate Seasonal Relationship Specialty Start Date End Date Cisco Blanc DO [address] [place] [address] PCP - General Family Medicine 12/19/19 Retail Sales Associate Seasonal Relationship Specialty Start Date End Date Cisco Blanc DO [address] [place] [address] PCP - General Family Medicine 12/19/19 Retail Sales Associate Seasonal Relationship Specialty Start Date End Date Carlos AlbertolindenCisco cao DO [address] [place] [address] PCP - General Family Medicine 12/19/19 Retail Sales Associate Seasonal Relationship Specialty Start Date End Date Cisco BlancDO [address], [place] [address] PCP - General Family Medicine 12/19/19 Retail Sales Associate Seasonal Relationship Specialty Start Date End Date Tyson Fonseca MD PCP - General Family Medicine 11/11/15 Vivian Brady MD [address] [place] [id number] Gastroenterology 01/16/25 Retail Sales Associate Seasonal Relationship Specialty Start Date End Date GerardoTonny caonis PaddyDO [address], [place] [address] PCP - General Family Medicine 12/19/19 Goals (unrecognized section and content) Goals may be documented in a n alternate section Source Comments (unrecognize d section and content) In the event this informatio n is protected by the Federal Confidentiality of Alcohol and Drug Abuse Patient Records regulations: The Federal rules restrict any use of the information to criminally investigate or prosecute any alcohol or drug abuse patient.[facility] FOR RECORDS PERTAINING TO PATIENTS WHO ARE [...] BE BASED ON THE PRIMARY CLINICAL RECORDS. [employer] [facility]. provides no warranty or guarantee of the accuracy or completeness of information in this document.
--- OUTSIDE RECORDS SUMMARY | 2025-02-02 05:40 | XMS_ITS | Encounter Summary ---
Author Organization [employer] tem Address [id number] [place] [address] Care Team Providers Care Extruding Press Operator Name Role Phone Cisco Blanc Primary Care Provider Encounter Details Date Type Department Care Team (Late st Contact Info) Description 02/25/2023 Orders Only [facility] Internal [facility] - Family Medicine [address] [place] [phone] External, Scanning Provider Social History Tobacco Use [...] week 08/01/2022 How often do you attend synagogue or nondenominational serv ices? Never 08/01/2022 Active [...] Answer Date Recorded Total Score 0 02/17/2023 [facility] of Occupat ional Health - Occupational Stress [...] Recorded Do you need help finding a [facility] and/or a training program? [...] campus Dc documented as of this encounter Procedures Procedure Name Priority Date/Time Associated Diagnosis Comments XR FOOT RT 2 VWS Routine 02/25/2023 documented in this encounter Results * X-ray foot right 2 views (02/25/2023) Anatomical Region Laterality Modality Lower Extremities, MSK, Foot Right Com puted Radiography us Scanning Provider External IMG DIAGNOSTIC IMAGIN G ORDERABLES Final Result documented in this encounter Visit Diagnoses Not on filedocumented in this encounter Additional Health Concerns Assessment Noted Time PHQ-9 Depression Total Score: 0 02/18/20 23 3:23 PM EDT documented as of this encounter Care Teams Extruding Press Operator Relationship Specialty Start Date End Date Cisco Blanc DO [address] [place] [address] PCP - General Family Medicine 12/19/19 documented as of this encounter
--- OUTSIDE RECORDS SUMMARY | 2025-02-02 05:41 | XMS_ITS | Encounter Summary ---
Author Organization [employer] Address [id number] [address] [place] [address] Care Team Providers Care Bioprocessing Manufacturing Technician Name Role Phone Cisco Blanc DO Primary Care Provider [phone] Reason for Visit * Reason Comments Med Refill Encounter Details Date Type Department Care Team (Late st Contact Info) Description 05/12/2022 [facility] [address] [place] [phone] Cisco Blanc DO [address] [facility] [place] [address] Social History Tobacco Use Types Packs/Day Years Used Date Smoking Tobacco: Every Day Cigarettes 1 35 Started: 12/1983 ; Last attempted to quit: 12/2018 Vaping/E-cigarettes Smokeless Tobacco: Never Comments:vape, today Alcohol Use Standard Drinks/Week Comments Yes 0 (1 standard drink = 0.6 oz pur e alcohol) Occasional Childcare Answer Date Recorded Childcare Unknown 01/31/2019 Employment Answer Date Recorded Employment Unknown 01/31/2019 Purpose - Life Answer Date Recorded Purpose and direction in life Unknown Sex and Gender Information Value Date Recorded Sex Assigned at Not on file Legal Sex Male 11:30 AM EDT Gender Identity Not on file Sexual Orientation Not on file documented as of this encounter Miscellaneous Notes * Telephone Encounter - Cisco Blanc DO - 05/12/2022 3:04 PM EDT Rx sent in. Due for wellness appt next month * Telephone Encounter - Barbara De La Torre CMA - 05/12/2022 3:04 PM EDT Left message via Voicemail documented in this encounter Plan of Treatment Not on file documented as of this encounter Goals Goal Patient Goal Type Associated Problems Recent Progress Patient-Stated? Author home with self care General Yes Jenny Noonan, RN Note: Evaluation of progress towards goal: with support from friends and family, patient needs to fllow up with [facility] upon Dc documented as of this encounter Visit Diagnoses Not on filedocumented in this encounter Care Teams Bioprocessing Manufacturing Technician Relationship Specialty Start Date End Date Cisco Blanc DO [address] [facility] [place] [address] PCP - General Family Medicine 12/19/19 documented as of this encounter
--- OUTSIDE RECORDS SUMMARY | 2025-02-02 05:41 | XMS_ITS | Encounter Summary ---
Author Organization [employer] Address [id number] [address] [place] [address] Care Team Providers Care Hospice Administrator Name Role Phone Cisco Blanc DO Primary Care Provider + [phone] Reason for Visit * Reason Comments Med Refill Encounter Details Date Type Department Care Team (Late st Contact Info) Description 05/12/2022 Refill [facility] Internal [facility] - Family Medicine [address] [place] [phone] Michelle Francis APRN-CNP [address] [place] [address] Social History Tobacco Use Types Packs/Day Years [...] encounter Miscellaneous Notes * Telephone Encounter - SYLVESTER Duncan - 05/12/2022 3:04 PM EDT Refill * Telephone Encounter - Cisco Blanc DO - 05/12/2022 3:04 PM EDT Rx sent in. Due for wellness next month documented in this encounter Plan of Treatment Not on file documented as of this encounter Goals Goal Patient Goal Type Associated Problems Recent Progress Patient-Stated? Author home with self care General Yes Jenny Noonan, RN Note: Evaluation of progress towards goal: with support from friends and family, [facility] documented as of this encounter Visit Diagnoses Not on filedocumented in this encounter Care Teams Hospice Administrator Relationship Specialty Start Date End Date Cisco Blanc DO [address] [place] [address] PCP - General Family Medicine 12/19/19 documented as of this encounter
--- OUTSIDE RECORDS SUMMARY | 2025-02-02 05:41 | XMS_ITS | Encounter Summary ---
Author Organization [employer] tem Address [id number] [place] [address] Care Team Providers Care Branch Services Manager Name Role Phone Cisco Blanc Primary Care Provider Encounter Details Date Type Department Care Team (Late st Contact Info) Description 05/07/2024 Orders Only [facility] Internal Medicine - Family Medicine [address] [place] [address] Ref Prov, [place] [address] Social History Tobacco Use Types Packs/Day Years [...] week 08/01/2022 How often do you attend jainism or methodist serv ices? Never 08/01/2022 Active [...] PHQ-2 Answer Date Recorded Total Score 21 03/15/2024 [facility] - Occupational Stress Questionnaire Answer Date Recorded [...] Recorded Do you need help finding a [facility] and/or a training program? No 08/01/2022 Hunger Screening Answer Date Recorded Within the past 12 months we worried whether our food would run out before we got money to buy more. Often True 03/15/2024 Within the past 12 months th e food we bought just didn't last and we didn't have money to get more. Often True 03/15/2024 Purpose - Life Answer Date Recorded I [...] family, patient needs to fllow up with [facility] upon Dc documented as of this encounter Procedures Procedure Name Priority Date/Time Associated Diagnosis Comments ECG 12-LEAD Routine 05/06/2024 5:[address] ABDOMEN AND PELVIS W CONT Routine 05/06/2024 5:[address] BRAIN W WO CONT Routine 05/06/2024 5: [address] ABDOMEN AND PELVIS W CONT Routine 05/06/2024 5:01 PM EDT XR CHEST 1 VW Routine 05/06/2024 5:[address] BRAIN WO CONT Routine 05/06/2024 5:01 PM EDT ECG 12-LEAD Routine 05/04/2024 5:15 PM EDT documented in this encounter Results * ECG 12 lead (05/06/2024 5:11 PM EDT) us Scanning Provider External ECG ORDERABLES Final Result MANUALLY TRANSCRIBED RESULTS * CT abdomen and pelvis with contrast (05/06/2024 5:10 PM EDT) Anatomical Region Laterality Modality Body, Abdomen, Body Covera N/A Compu ernst Tomography us Scanning Provider External IMG CT ORDERABLES Fin al Result * CT brain with and without contrast (05/06/2024 5:08 PM EDT) Anatomical Region Laterality Modality Neuro, Head, Head and Neck, Neuro Covera N/A Computed Tomography us Scanning Provider External IMG CT ORDERABLES Fin al Result * X-ray chest 1 view (05/06/2024 5:01 PM EDT) Anatomical Region Laterality Modality Body, Chest N/A Computed Radiogr aphy us Not In System Ref Prov IMG DIAGNOSTIC IMAGING OR DERABLES Final Result * CT brain without contrast (05/06/2024 5:01 PM EDT) Anatomical Region Laterality Modality Neuro, Head, Head and Neck, Neuro Covera N/A Computed Tomography us Not In System Ref Prov IMG CT ORDERABLES Final R esult * CT abdomen and pelvis with contrast (05/06/2024 5:01 PM EDT) Anatomical Region Laterality Modality Body, Abdomen, Body Covera N/A Compu ernst Tomography us Not In System Ref Prov IMG CT ORDERABLES Final R esult * ECG 12 lead (05/04/2024 5:15 PM EDT) us Scanning Provider External ECG ORDERABLES Final Result MANUALLY TRANSCRIBED RESULTS documented in this encounter Visit Diagnoses Not on filedocumented in this encounter Additional Health Concerns Assessment Noted Time PHQ-9 Depression Total Score: 21 03/15/2 024 4:01 PM EDT documented as of this encounter Care Teams Branch Services Manager Relationship Specialty Start Date End Date Cisco Blanc DO [address] [facility], [place] [address] PCP - General Family Medicine 12/19/19 documented as of this encounter
--- OUTSIDE RECORDS SUMMARY | 2025-02-02 05:41 | XMS_ITS | Encounter Summary ---
Author Organization [employer] Address [id number] [place] [address] Care Team Providers Care Heavy Machinery Operator Name Role Phone Cisco Blanc Primary Care Provider Encounter Details Date Type Department Care Team (Late st Contact Info) Description 02/20/2024 [facility]phone [facility] [address] [place] [phone] Linda Marc CMA Social History Tobacco Use [...] week 08/01/2022 How often do you attend hinduism or confucianism serv ices? Never 08/01/2022 Active Member of [...] Answer Date Recorded Total Score 16 12/09/2023 [facility] [place] of Occupat ional Health - Occupational Stress [...] Recorded Do you need help finding a [employer] [facility] career center and/or a training program? [...] Telephone Encounter - Linda Marc CMA - 02/20/2024 4:41 PM EDT I called pt and told him to take Zulema lax daily.He would like you to prescribe it. Pharmacy is listed and correct documented in this encounter Plan of Treatment Not on file documented as of this encounter Goals Goal Patient Goal Type Associated Problems Recent Progress Patient-Stated? Author home with self care General Yes Jenny Noonan, RN Note: Evaluation of progress towards goal: with support from friends and family, patient needs to fllow up with [facility] upon Dc documented as of this encounter Visit Diagnoses Not on filedocumented in this encounter Additional Health Concerns Assessment Noted Time PHQ-9 Depression Total Score: 16 024 8:43 AM EDT documented as of this encounter Care Teams Heavy Machinery Operator Relationship Specialty Start Date End Date Cisco Blanc DO [address], [place] [address] PCP - General Family Medicine 12/19/19 documented as of this encounter
--- OUTSIDE RECORDS SUMMARY | 2025-02-02 05:41 | XMS_ITS | Encounter Summary ---
Author Organization [employer] Address [id number] [address] [place] [address] Care Team Providers Care Import Dispatcher Name Role Phone Cisco Blanc DO Primary Care Provider [phone] Encounter Details Date Type Department Care Team (Late st Contact Info) Description 03/09/2024 Orders Only [facility] Internal Medicine - Family Medicine [address] [place] [phone] Cisco Blanc DO [address], [facility] [place] [address] Irritable bowel syndrome with constipation (Primary Dx); Change in bowel habits Social History Tobacco Use Types Packs/Day Years [...] week 08/01/2022 How often do you attend restoration or mormonism serv ices? Never 08/01/2022 Active [...] Answer Date Recorded Total Score 16 12/09/2023 [facility] of Occupat ional Health - Occupational Stress [...] Recorded Do you need help finding a [facility] and/or a training program? [...] family, patient needs to fllow up with [facility] Dc documented as of this encounter Visit Diagnoses Diagnosis Irritable bowel syndrome with constipation- Primary Irritable bowel syndrome Change in bowel habits Other symptoms involving digestive system documented in this encounter Additional Health Concerns Assessment Noted Time PHQ-9 Depression Total Score: 16 024 8:43 AM EDT documented as of this encounter Care Teams Import Dispatcher Relationship Specialty Start Date End Date Cisco Blanc DO [address] [facility] [place] [address] PCP - General Family Medicine 12/19/19 documented as of this encounter
--- OUTSIDE RECORDS SUMMARY | 2025-02-02 05:41 | XMS_ITS | Encounter Summary ---
Author Organization [employer] tem Address [id number] [address] [place] [address] Care Team Providers Care Customer Success Representative Name Role Phone Cisco Blanc Primary Care Provider Encounter Details Date Type Department Care Team (Late st Contact Info) Description 05/30/2024 Orders Only [facility] - Family Medicine [address] [place] [address] Ref Prov, [place] [address] Social History Tobacco Use Types Packs/Day Years [...] week 08/01/2022 How often do you attend religious or yazdanism serv ices? Never 08/01/2022 Active [...] Answer Date Recorded Total Score 21 03/15/2024 [facility] Questionnaire Answer Date [...] Recorded Do you need help finding a [facility] and/or a training program? No 08/01/2022 Hunger Screening Answer Date Recorded Within the past 12 months we worried whether our food would run out before we got money to buy more. Never True 05/15/2024 Within the past 12 months th e food we bought just didn't last and we didn't have money to get more. Never True 05/15/2024 Purpose - Life Answer Date Recorded I [...] family, patient needs to fllow up with [facility] documented as of this encounter Procedures Procedure Name Priority Date/Time Associated Diagnosis Comments CT ABDOMEN AND PELVIS W CONT Routine 05/06/2024 4:59 PM EDT documented in this encounter Results * CT abdomen and pelvis with contrast (05/06/2024 4:59 PM EDT) Anatomical Region Laterality Modality Body, Abdomen, Body Covera N/A Compu ernst Tomography us Not In System Ref Prov IMG CT ORDERABLES Final R esult documented in this encounter Visit Diagnoses Not on filedocumented in this encounter Additional Health Concerns Assessment Noted Time PHQ-9 Depression Total Score: 21 03/15/ 024 4:01 PM EDT documented as of this encounter Care Teams Customer Success Representative Relationship Specialty Start Date End Date Cisco Blanc DO [address], [place] [address] PCP - General Family Medicine 12/19/19 documented as of this encounter
--- OUTSIDE RECORDS SUMMARY | 2025-02-02 05:41 | XMS_ITS | Encounter Summary ---
Author Organization [employer] tem Address [id number] [address] [place] [address] Care Team Providers Care Mud Mixer Operator Name Role Phone Cisco Blanc Primary Care Provider Encounter Details Date Type Department Care Team (Late st Contact Info) Description 06/01/2024 Orders Only [facility] - Family Medicine [address] [place] [address] Ref Prov, [place] [address] Social History Tobacco Use Types Packs/Day Years [...] How often do you attend baptism or mormonism serv ices? Never 08/01/2022 Active [...] Answer Date Recorded Total Score 21 03/15/2024 [facility] Questionnaire Answer Date [...] Recorded Do you need help finding a [facility] and/or a training program? [...] family, patient needs to fllow up with [facility] documented as of this encounter Procedures Procedure Name Priority Date/Time Associated Diagnosis Comments CT ABDOMEN AND PELVIS W CONT Routine 05/06/2024 1:[address] BRAIN WO CONT Routine 05/06/2024 1:40 PM EDT documented in this encounter Results * CT abdomen and pelvis with contrast (05/06/2024 1:42 PM EDT) Anatomical Region Laterality Modality Body, Abdomen, Body Covera N/A Compu ernst Tomography us Not In System Ref Prov IMG CT ORDERABLES Final R esult * CT brain without contrast (05/06/2024 1:40 PM EDT) Anatomical Region Laterality Modality Neuro, Head, Head and Neck, Neuro Covera N/A Computed Tomography us Not In System Ref Prov IMG CT ORDERABLES Final R esult documented in this encounter Visit Diagnoses Not on filedocumented in this encounter Additional Health Concerns Assessment Noted Time PHQ-9 Depression Total Score: 21 024 4:01 PM EDT documented as of this encounter Care Teams Mud Mixer Operator Relationship Specialty Start Date End Date Cisco Blanc DO [address] [facility], [place] [address] PCP - General Family Medicine 12/19/19 documented as of this encounter
--- OUTSIDE RECORDS SUMMARY | 2025-02-02 05:41 | XMS_ITS | Encounter Summary ---
Author Organization [employer] tem Address [id number] [address] [place] [address] Care Team Providers Care Material Handling Supervisor Name Role Phone Cisco Blanc Primary Care Provider Encounter Details Date Type Department Care Team (Late st Contact Info) Description 03/08/2024 [facility] [address] [place] [phone] Linda Marc CMA Social History Tobacco Use [...] week 08/01/2022 How often do you attend restorationism or mu-ism serv ices? Never 08/01/2022 Active Member of [...] Answer Date Recorded Total Score 16 12/09/2023 [facility] of Occupat ional Health - Occupational Stress [...] Recorded Do you need help finding a [facility] [facility] career center and/or a training program? [...] Telephone Encounter - Linda Marc CMA - 03/08/2024 1:44 PM EDT Pt called and would like you to put a referral in for a Casting Supervisor.He states his blood pressure is up and struggles with constipation. * Telephone Encounter - Cisco Blanc DO - 03/08/2024 1:44 PM EDT Okay I sent a referral into the propagation manager in [place]. He is overdue for a wellness visithere. Please set up * Telephone Encounter - Linda Marc CMA - 03/08/2024 1:44 PM EDT I called and left a message to book apt for wellness documented in this encounter Plan of Treatment Not on file documented as of this encounter Goals Goal Patient Goal Type Associated Problems Recent Progress Patient-Stated? Author home with self care General Yes Jenny Noonan, RN Note: Evaluation of progress towards goal: with support from friends and family, patient needs to fllow up with [facility] documented as of this encounter Visit Diagnoses Not on filedocumented in this encounter Additional Health Concerns Assessment Noted Time PHQ-9 Depression Total Score: 16 024 8:43 AM EDT documented as of this encounter Care Teams Material Handling Supervisor Relationship Specialty Start Date End Date Cisco Blanc G, DO [address] [facility], [place] [address] PCP - General Family Medicine 12/19/19 documented as of this encounter
--- OUTSIDE RECORDS SUMMARY | 2025-02-02 05:41 | XMS_ITS | Encounter Summary ---
Author Organization [employer] tem Address [id number] [address] [place] [address] Care Team Providers Care Frozen Meat Cutter Name Role Phone Cisco Blanc Primary Care Provider [phone] Encounter Details Date Type Department Care Team (Late st Contact Info) Description 03/13/2024 Orders Only [facility] - Family Medicine [address] [place] [address] Ref Prov, [place] [address] Social History Tobacco Use Types Packs/Day Years [...] week 08/01/2022 How often do you attend hindu or latter day serv ices? Never 08/01/2022 Active Member of [...] Answer Date Recorded Total Score 21 03/15/2024 [facility] of Occupat [facility] - Occupational Stress Questionnaire Answer Date [...] Recorded Do you need help finding a [place] [facility] [facility] career center and/or a training program? [...] family, patient needs to fllow up with [facility] documented as of this encounter Procedures Procedure Name Priority Date/Time Associated Diagnosis Comments US ABDOMEN LMTD Routine 03/13/2024 4:[address] ABDOMEN AND PELVIS WO CONT Routine 03/13/2024 2:29 PM EDT documented in this encounter Results * Ultrasound abdomen limited (03/13/2024 4:12 PM EDT) Anatomical Region Laterality Modality Body, Abdomen Ultrasound us Not In System Ref Prov IMG US ORDERABLES Final R esult * CT abdomen and pelvis without contrast (03/13/2024 2:29 PM EDT) Anatomical Region Laterality Modality Body, Abdomen, Body Covera N/A Compu ernst Tomography us Not In System Ref Prov IMG CT ORDERABLES Final R esult documented in this encounter Visit Diagnoses Not on filedocumented in this encounter Additional Health Concerns Assessment Noted Time PHQ-9 Depression Total Score: 16 024 8:43 AM EDT documented as of this encounter Care Teams Frozen Meat Cutter Relationship Specialty Start Date End Date Cisco Blanc DO [address] [facility], [place] [address] PCP - General Family Medicine 12/19/19 documented as of this encounter
--- OUTSIDE RECORDS SUMMARY | 2025-02-02 05:41 | XMS_ITS | Encounter Summary ---
Author Organization [employer] tem Address [id number] [address] [place] [address] Care Team Providers Care Sales Property Manager Name Role Phone Cisco Blanc Primary Care Provider [phone] Encounter Details Date Type Department Care Team (Late st Contact Info) Description 09/06/2024 Orders Only [facility] - Family Medicine [address] [place] [address] Ref Prov, [place] [address] Social History Tobacco Use Types Packs/Day Years [...] How often do you attend hoahaoism or oriental orthodox serv ices? Never 08/01/2022 [...] Answer Date Recorded Total Score 21 03/15/2024 [facility] - Occupational Stress Questionnaire Answer Date [...] Recorded Do you need help finding a [facility] hospital[facility] career center and/or a training program? [...] family, patient needs to fllow up with [facility] documented as of this encounter Procedures Procedure Name Priority Date/Time Associated Diagnosis Comments CT ABDOMEN AND PELVIS W CONT Routine 09/05/2024 9:24 AM EST documented in this encounter Results * CT abdomen and pelvis with contrast (09/05/2024 9:24 AM EST) Anatomical Region Laterality Modality Body, Abdomen, Body Covera N/A Compu ernst Tomography us Not In System Ref Prov IMG CT ORDERABLES Final R esult documented in this encounter Visit Diagnoses Not on filedocumented in this encounter Additional Health Concerns Assessment Noted Time PHQ-9 Depression Total Score: 21 03/15/ 024 4:01 PM EDT documented as of this encounter Care Teams Sales Property Manager Relationship Specialty Start Date End Date Cisco Blanc DO [address], [place] [address] PCP - General Family Medicine 12/19/19 documented as of this encounter
--- OUTSIDE RECORDS SUMMARY | 2025-02-02 05:41 | XMS_ITS | Encounter Summary ---
Author Organization [employer] tem Address [id number] [address] [place] [address] Care Team Providers Care Avionics Electrical Engineer Name Role Phone Cisco Blanc Primary Care Provider Encounter Details Date Type Department Care Team (Late st Contact Info) Description 03/19/2024 Orders Only [facility] Internal [facility] - Family Medicine [address] [place] [phone] Ty Burciaga DO [address] [place] [address] Rectal fissure (Primary Dx) Social History Tobacco Use Types [...] How often do you attend jain or alevism serv ices? Never 08/01/2022 Active Member of [...] Answer Date Recorded Total Score 21 03/15/2024 [facility] of Occupat ional Health - Occupational Stress [...] Recorded Do you need help finding a [facility] career center and/or a training program? [...] family, patient needs to fllow up with [facility] documented as of this encounter Visit Diagnoses Diagnosis Rectal fissure- Primary Anal fissure documented in this encounter Additional Health Concerns Assessment Noted Time PHQ-9 Depression Total Score: 21 024 4:01 PM EDT documented as of this encounter Care Teams Avionics Electrical Engineer Relationship Specialty Start Date End Date Cisco Blanc DO [address] [facility], [place] [address] PCP - General Family Medicine 12/19/19 documented as of this encounter
--- OUTSIDE RECORDS SUMMARY | 2025-02-02 05:41 | XMS_ITS | Encounter Summary ---
Author Organization [employer] tem Address [id number] [address] [place] [address] Care Team Providers Care Senior Android Software Engineer Name Role Phone Cisco Blanc DO Primary Care Provider [phone] Reason for Visit * Reason Comments Med Refill Encounter Details Date Type Department Care Team (Late st Contact Info) Description 06/18/2022 Refill [facility] Internal Medicine - Family Medicine [address] [place] [address] Cisco Blanc DO [address], [facility] [address] Social History Tobacco Use Types Packs/Day Years [...] Author home with self care General Yes Shaista, Jenny M, RN Note: Evaluation of progress towards goal: with support from friends and family, patient needs to fllow up with [facility] documented as of this encounter Visit Diagnoses Not on filedocumented in this encounter Care Teams Senior Android Software Engineer Relationship Specialty Start Date End Date Cisco Blanc DO [address] [facility], [place] [address] PCP - General Family Medicine 12/19/19 documented as of this encounter
--- OUTSIDE RECORDS SUMMARY | 2025-02-02 05:41 | XMS_ITS | Encounter Summary ---
Author Organization [employer] tem Address [id number] [address] [place] [address] Care Team Providers Care Cheese Blender Name Role Phone Cisco Blanc DO Primary Care Provider [phone] Reason for Visit * Reason Comments Med Refill Encounter Details Date Type Department Care Team (Late st Contact Info) Description 02/15/2023 Refill [facility] - Family Medicine [address] [place] [address] Cisco Blanc DO [address], [facility] [address] Social History Tobacco Use Types Packs/Day Years [...] How often do you attend methodist or confucianist serv ices? Never 08/01/2022 Active Member of [...] Answer Date Recorded Total Score 0 02/17/2023 [facility] of Occupat ional Health - Occupational Stress [...] Recorded Do you need help finding a [facility] career [facility] and/or a training [...] Telephone Encounter - Cisco Blanc DO - 02/15/2023 11:24 AM EDT Rx sent in. Patient is due for a recheck documented in this encounter Plan of Treatment Not on file documented as of this encounter Goals Goal Patient Goal Type Associated Problems Recent Progress Patient-Stated? Author home with self care General Yes Jenny Noonan, RN Note: Evaluation of progress towards goal: with support from friends and family, patient needs to f[facility]ow up with [facility] documented as of this encounter Visit Diagnoses Not on filedocumented in this encounter Additional Health Concerns Assessment Noted Time PHQ-9 Depression Total Score: 9 08/01/20 22 6:00 PM EST documented as of this encounter Care Teams Cheese Blender Relationship Specialty Start Date End Date Cisco Blanc DO [address], [facility] [address] PCP - General Family Medicine 12/19/19 documented as of this encounter
--- OUTSIDE RECORDS SUMMARY | 2025-02-02 05:41 | XMS_ITS | Encounter Summary ---
Author Organization [employer] tem Address [id number] [address] [place] [address] Care Team Providers Care Sales And Marketing Director Name Role Phone Cisco Blanc Primary Care Provider [phone] Encounter Details Date Type Department Care Team (Late st Contact Info) Description 03/12/2024 Orders Only [facility] - Family Medicine [address] [place] [address] Ref Prov, [place] [address] Social History Tobacco Use Types Packs/Day Years [...] week 08/01/2022 How often do you attend cheondoism or hindu serv ices? Never 08/01/2022 Active Member of [...] Answer Date Recorded Total Score 21 03/15/2024 [facility] of Occupat [facility] - Occupational Stress Questionnaire Answer Date Recorded [...] Recorded Do you need help finding a [facility]al career center and/or a training program? No [...] family, patient needs to fllow up with [facility] documented as of this encounter Procedures Procedure Name Priority Date/Time Associated Diagnosis Comments XR ABDOM COMP SERIES W PA CHEST Routine 03/09/2024 12:13 PM EDT documented in this encounter Results * X-ray abdomen complete series with pa chest (03/09/2024 12:13 PM EDT) Anatomical Region Laterality Modality Body, Abdomen N/A Computed Radiogr aphy us Not In System Ref Prov IMG DIAGNOSTIC IMAGING OR DERABLES Final Result documented in this encounter Visit Diagnoses Not on filedocumented in this encounter Additional Health Concerns Assessment Noted Time PHQ-9 Depression Total Score: 16 024 8:43 AM EDT documented as of this encounter Care Teams Sales And Marketing Director Relationship Specialty Start Date End Date Cisco Blanc DO [address], [place] [address] PCP - General Family Medicine 12/19/19 documented as of this encounter
--- OUTSIDE RECORDS SUMMARY | 2025-02-02 05:41 | XMS_ITS | Encounter Summary ---
Author Organization [employer] Address [id number] [address] [place] [address] Care Team Providers Care Vessel Ordinary Seaman Name Role Phone Cisco Blanc Primary Care Provider Encounter Details Date Type Department Care Team (Late st Contact Info) Description 04/03/2024 Orders Only [facility] Internal [facility] - Family Medicine [address] [place] [address] Ref Prov, [place] [address] Social History Tobacco Use Types Packs/Day Years [...] How often do you attend evangelical or adventism serv ices? Never 08/01/2022 Active Member of [...] Answer Date Recorded Total Score 21 03/15/2024 [facility] of Occupat [facility] - Occupational Stress Questionnaire Answer Date Recorded [...] Recorded Do you need help finding a [facility] career center and/or a training program? [...] patient needs to fllow up with [facility] documented as of this encounter Procedures Procedure Name Priority Date/Time Associated Diagnosis Comments CT ABDOMEN AND PELVIS W CONT Routine 04/02/2024 8:[address] BRAIN WO CONT Routine 04/02/2024 8:57 AM EDT documented in this encounter Results * CT abdomen and pelvis with contrast (04/02/2024 8:59 AM EDT) Anatomical Region Laterality Modality Body, Abdomen, Body Covera N/A Compu ernst Tomography us Not In System Ref Prov IMG CT ORDERABLES Final R esult * CT brain without contrast (04/02/2024 8:57 AM EDT) Anatomical Region Laterality Modality Neuro, Head, Head and Neck, Neuro Covera N/A Computed Tomography us Not In System Ref Prov IMG CT ORDERABLES Final R esult documented in this encounter Visit Diagnoses Not on filedocumented in this encounter Additional Health Concerns Assessment Noted Time PHQ-9 Depression Total Score: 21 024 4:01 PM EDT documented as of this encounter Care Teams Vessel Ordinary Seaman Relationship Specialty Start Date End Date Cisco Blanc DO [address] [facility], [place] [address] PCP - General Family Medicine 12/19/19 documented as of this encounter
--- OUTSIDE RECORDS SUMMARY | 2025-02-02 05:41 | XMS_ITS | Encounter Summary ---
Author Organization [employer] Address [id number] [address] [place] [address] Care Team Providers Care Hot Metal Charger Name Role Phone Cisco Blanc DO Primary Care Provider [phone] Reason for Visit * Reason Comments Med Refill Encounter Details Date Type Department Care Team (Late st Contact Info) Description 04/10/2024 Refill [facility] - Family Medicine [address] [place] [address] Cisco Blanc DO [address], [place] [address] Social History Tobacco Use Types Packs/Day Years [...] week 08/01/2022 How often do you attend caodaism or faith serv ices? Never 08/01/2022 Active Member of [...] Answer Date Recorded Total Score 21 03/15/2024 [facility] of Occupat ional Health - Occupational [...] Recorded Do you need help finding a [facility] career center and/or a training [...] family, patient needs to fllow up with [facility] documented as of this encounter Visit Diagnoses Not on filedocumented in this encounter Additional Health Concerns Assessment Noted Time PHQ-9 Depression Total Score: 21 024 4:01 PM EDT documented as of this encounter Care Teams Hot Metal Charger Relationship Specialty Start Date End Date Cisco Blanc DO [address] [facility] [place] [address] PCP - General Family Medicine 12/19/19 documented as of this encounter
[2025-02-02 06:16] LABS: Basophils Absolute Auto 0.1 10^3/uL (0.0-0.1); Basophils Percent Auto 0.8 % (0.2-2.0); Eosinophils Absolute Auto 0.4 10^3/uL (0.0-0.7); Eosinophils Percent Auto 4.8 % (0.9-7.0); Hematocrit 49.7 % (42.0-54.0); Hemoglobin 17.3 g/dL (14.0-18.0); Immature Granulocytes Abs Auto 0.09 10^3/uL (0.00-0.03); Immature Granulocytes Pct Auto 1.1 % (0.0-0.5); Lymphocytes Absolute Auto 1.6 10^3/uL (1.2-3.8); Lymphocytes Percent Auto 20.1 % (20.5-60.0); Mean Corpuscular HGB Conc 34.8 g/dL (29.9-35.2); Mean Corpuscular Hemoglobin 32.5 pg (25.9-34.0); Mean Corpuscular Volume 93.4 fL (80.0-94.0); Mean Platelet Volume 10.5 fL (9.5-13.5); Monocytes Absolute Auto 0.7 10^3/uL (0.3-0.8); Monocytes Percent Auto 8.9 % (1.7-12.0); Neutrophils Absolute Auto 5.1 10^3/uL (1.4-6.5); Neutrophils Percent Auto 64.3 % (43.0-75.0); Platelet Count 212 10^3/uL (150-450); Red Blood Count 5.32 10^6/uL (4.70-6.10); White Blood Count 7.9 10^3/uL (4.0-11.0)
[2025-02-02 06:21] LABS: Alanine Aminotransferase 30 U/L (16-63); Albumin Globulin Ratio 1.1; Alkaline Phosphatase 126 U/L (46-116); Aspartate Amino Transferase 36 U/L (15-37); BUN Creatinine Ratio 9.4; Bilirubin Total 0.3 mg/dL (0.2-1.0); Carbon Dioxide 24.4 mmol/L (21.0-32.0); Chloride 99 mmol/L (98-107); Estimated GFR (African America >60 (>=60 mL/min/1.73m^2); Estimated GFR (Non-African Ame >60 (>=60 mL/min/1.73m^2); Globulin 3.7 g/dL; Glucose 109 mg/dL (74-106); Potassium 3.4 mmol/L (3.5-5.1); Sodium 139 mmol/L (136-145); Total Protein 7.7 g/dL (6.4-8.2)
[2025-02-02 06:22] LABS: Ethanol 212 mg/dL
[2025-02-02 07:04] VITALS: BP 162/93; PULSE 92; O2SAT 95
== END 2025-02-02 08:01 | disposition home or self-care (01) ==
PROVIDERS: Emergency Provider Emergency Medicine; PCP Family Medicine
DX: S01.81XA Laceration without foreign body of other part of head, initial encounter (principal); W18.39XA Other fall on same level, initial encounter; S02.2XXA Fracture of nasal bones, initial encounter for closed fracture; F10.129 Alcohol abuse with intoxication, unspecified; Y90.7 Blood alcohol level of 200-239 mg/100 ml; Z23 Encounter for immunization
CPT/HCPCS: 36415; 70450; 70486; 71045; 72125; 72170; 80053; 80320; 85025; 90471; 99285

== ENCOUNTER 2025-02-14 12:51 | Emergency (ER) | payer OTHER, SELFPAY ==
--- OUTSIDE RECORDS SUMMARY | 2024-03-07 20:00 | XMS_ITS | Continuity of Care Document ---
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 ROUTINE VENIPUNCTURE DRUG TEST PRSMV DIR OPT OBS Acute Detox Veneer Stock Grader Acute Detox Veneer Stock Grader Intraoral-complete Series (bw) Oral Hygiene Instruction Assessment Of A Patient Acute Detox Veneer Stock Grader Acute Detox Veneer Stock Grader DRUG TEST PRSMV DIR OPT OBS Acute Detox Veneer Stock Grader Acute Detox Veneer Stock Grader Acute Detox Veneer Stock Grader ROUTINE VENIPUNCTURE DRUG TEST PRSMV DIR OPT OBS Acute Detox Veneer Stock Grader Advance Directives Directive Yes / No Effective Date File Name No Information Encounters Encounter Description Practice Location Reason(s) For Visit Diagnoses Date Provider Providers Copied on Encounter [facility], [address] [place] [address], [id number] , tel:+ [phone] [facility] No Information Hussein Fields. [address] [place] [address], [id number] , [place]. tel:+ [phone] [facility], [address] [place], [place], [id number] , [place] tel: [phone] [facility] No Information 4 Klidas Diamond. [address] [place], [place], [id number] , [place]. tel: [phone] [facility], [address] [place], [place], [id number] , [place] tel: [phone] [facility] No Information 4 Klidas Diamond. [address] [place], [place], [id number] , [place]. tel: [phone] [facility], [address] [place], [place], [id number] , [place] tel: [phone] [facility]chief complaint) [facility] 4 Thomas Venegas. [address] [place], [place], [id number] , [place]. tel: [phone] [facility], [address] [place], [place], [id number] , [place] tel: [phone] [facility] No Information 4 Klidas Diamond. [address] [place], [place], [id number] , [place]. tel: [phone] [facility], [address] [place], [place], [id number] , [place] tel: [phone] [facility] No Information 4 Klidas Diamond. [address] [place], [place], [id number] , [place]. tel: [phone] [facility], [address] [place], [place], [id number] , [place] tel: [phone] [facility] No Information 4 Klidas Diamond. [address] [place], [place], [id number] , [place]. tel: [phone] [facility], [address] [place], [place], [id number] , [place] tel: [phone] [facility] No Information 0-202 4 Klidas Diamond. [address] [place], [place], [id number] , [place]. tel: [phone] [facility], [address] [place], [place], [id number] , [place] tel: [phone] [facility] No Information 0 9-202 4 Klidas Diamond. [address] [place], [place], [id number] , [place]. tel: [phone] [facility], [address] [place] [address], [id number] , [place] tel: [phone] [facility] No Information 8 4 Klidas Diamond. [address] [place], [place], [id number] , [place]. tel: [phone] Family History Family Member Type Diagnosis Age At Onset No Information Payers Payer name Insurance type Covered libertarian ID Ronan avalosdenice(s) [place] Medicaid Primary [id number] Social History Type Description Quantity Date Captured Comments Sex Male Smoking Status No Information Sexual Orientation Straight or heterosexual Jan Gender Identity Male Chief Complaint And Reason For Visit No Information Reason For Referral Reason For Referral No Information Plan Of Treatment Date Type Action Status Goal Hep A. Due on du e Goal FOBT. Due on due Goal FIT-DNA. Due on due Goal Hepatitis C screening. Due o n due Goal Tdap. Due on due Goal Tdap Vaccine. Due on 2023 due Goal Unhealthy drug use screening . Due on due Goal Colonoscopy. Due on due Goal FIT. Due on due Goal Influenza vaccine. Due on due Goal CT-Colonography. Due on due Goal Depression screening. Due on due Goal Zoster vaccine (). Due on due Goal PRAPARE ASSESSMENT. Due on due Goal Lipid panel. Due on 024 due Referral Ordered: Utilities Offices (related to Inadequate [...]
--- OUTSIDE RECORDS SUMMARY | 2024-06-20 06:00 | XMS_ITS ---
Author Organization [facility] vices Address [address], [place] [id number] Care Team Providers Care Delivery And Mail Sorter Name Role Phone PamwillBrooke tomas Primary Care [...] Location Date Provider Diagnosis [place] [address] [id number] 06/20/2024 Brooke Castellano Severe anxiety F41.9 ; [...] * Chai ARNOLDDOB:1970 ( 54 yo M)Acc No.[id number]:06/20/2024 Patient: Mary IZZY Chai Provider: ANGELIQUE Mae :1970 A ge:53 Y S ex:Male Date:06/20/2024 Address:[address] [id number] Subjective: * Chief Complaints: * 1 [...] * Electronic signature of ANGELIQUE Bruner on 02/14/2025 at 01:00 PM EDT Sign off status: Pending * Provider: ANGELIQUE Mae Date: Generated for Jose cao/Ирина/Larissa on: 02/14/2025 01:00 PM EDT
--- OUTSIDE RECORDS SUMMARY | 2025-02-14 13:00 | XMS_ITS | Clinical Summary ---
Author Organization [facility] Address [address] [place] [address] Care Team Providers Care Physical Therapy Assistant Name Role Phone Tyson Fonseca MD Primary Care Provider [phone] Vivian Brady MD Unavailable [phone] Encounters Date Type Department Care Team Description 02/11/2025 Telephone Colorectal Surgery [address] [place], [place] [id number] Ashley Hayward MD Appointment (Left vm we received referral for botox injections) 01/16/2025 Transcribe Orders Referring Physician [address] [place] [phone] Vivian Brady MD Constipation by outlet dysfunction [...] Orientation Not on file Plan of Treatment Upcoming Encounters Date Type Department Care Team (Late st Contact Info) Description 02/21/2025 10:30 AM EDT Office Visit General Surgery [address] [address] Jey Kapadia MD [address] [place] [address] Consult Botox Injection Health Maintenance Due Date Last Done Comments Anxiety Screening 1986 Depression Screening 1986 HIV Screening 1986 Hepatitis B Vaccine (1 of 3 - 19+ 3-dose series) 1987 CT Colonography 2013 Cologuard (FIT-DNA) 2013 Colonoscopy 2013 Colorectal Cancer Screening 2013 Fecal Occult Blood 2013 Sigmoidoscopy 2013 Pneumococcal Vaccine: 50+ (1 of 1 - PCV) 2018 Shingrix Vaccine (1 of 2) 2018 DTaP,Tdap,Td Vaccine (2 - Td or Tdap) 10/28/2023 10/27/2013 Covid-19 Vaccine (4 - 2023-2 5 season) 2024 06/20/2021, 12/08/2020, 11/18/2020 Influenza Vaccine (Season Ended) 2025 06/20/2021, 04/06/2020, 06/07/2019 Diabetes Screening 12/11/2027 12/10/2024, 0 09/11/2024, 05/15/2024, Additional history exists Lipid Screening 12/10/2029 12/10/2024, 07/22/2022 Prostate Cancer Screening Discussion 12/10/2029 12/10/2024 Hepatitis C Screening Completed 09/26/2020 , 12/19/2019, 12/19/2019, Additional history exists Procedures Procedure Name Priority Date/Time Associated Diagnosis Comments PT ED PATIENT INFORMATION 02/12/2025 from Last 3 Months Results * PT ED PATIENT INFORMATION (02/12/2025) 02/12/2025 Narrative NILO - 02/13/2025 Provider HERMAN barker patient HARLAN ARNOLD started their Nilo on 02-13-2025 and completed it on 02-13-2025 Nilo program: PATIENT SAFETY INSTRUCTIONS FOR HEALTHCARE SETTINGS us Jey Kapadia MD NILO Final Result NILO from Last 3 Months Insurance * Guarantor: Harlan Arnold Account Type Relation to Patient Date of Phone Billing Address Personal/Family Self 1970 [address] [place] [address] [facility] Care Teams Physical Therapy Assistant Relationship Specialty Start Date End Date Tyson Fonseca MD PCP - General Family Medicine 11/11/15 Vivian Brady MD [address] [address] Gastroenterology 01/16/25
--- OUTSIDE RECORDS SUMMARY | 2025-02-14 13:00 | XMS_ITS | Encounter Summary ---
Demographics Address [address] [place] [address] Home Phone Mobile Phone Email Address Email Address Preferred Language ENG Marital Status Single Yazdanism Affiliation Unknown Race White Ethnic Group or Author Organization [facility] Address [address] [place] [address] Care Team Providers Care Protection Agent Name Role Phone Tyson Fonseca MD Primary Care Provider [phone] Vivian Brady MD Unavailable [phone] Source Comments In the event this information is protected by the Federal Confidentiality of Alcohol and Drug AbusePatient Records regulations: The Federal rules restrict any use of the information to criminally investigate or prosecute any alcohol or drug abuse patient.[facility] Reason for Visit * Reason Comments Appointment Left vm we received referral for botox injections Encounter Details Date Type Department Care Team (Late st Contact Info) Description 02/11/2025 Telephone Colorectal Surgery [address] [place] [address] [place] [address] [place] [address] Appointment (Left vm we received referral for botox injections) Social History Tobacco Use Types Packs/Day Years Used Date Smoking Tobacco: Never Assessed Sex and Gender Information Value Date Recorded Sex Assigned at Not on file Legal Sex Male 1:48 PM EDT Gender Identity Not on file Sexual Orientation Not on file documented as of this encounter Miscellaneous Notes * Telephone Encounter - Chelle Christianson - 02/11/2025 9:38 AM EDT Recevied referral from Satish Left vm fot pt referral for botox injections documented in this encounter Plan of Treatment Upcoming Encounters Date Type Department Care Team (Late st Contact Info) Description 02/21/2025 10:30 AM EDT Office Visit General Surgery [address] [address] Jey Kapadia MD [address] [place] [address] Consult Botox Injection documented as of this encounter Visit Diagnoses Not on filedocumented in this encounter Care Teams Protection Agent Relationship Specialty Start Date End Date Tyson Fonseca MD PCP - General Family Medicine 11/11/15 Vivian Brady MD [address] [address] Gastroenterology 01/16/25 documented as of this encounter
--- OUTSIDE RECORDS SUMMARY | 2025-02-14 13:00 | XMS_ITS | Encounter Summary ---
Author Organization [employer] Address [id number] [address] [place] [address] Care Team Providers Care Aircraft Refueler Name Role Phone Cisco Blanc Primary Care Provider Encounter Details Date Type Department Care Team (Late st Contact Info) Description 02/14/2024 Orders Only [facility] - Family Medicine [address] [place] [phone] Ty Burciaga DO [address] [place] [address] Change in bowel habits (Primary Dx) Social [...] week 08/01/2022 How often do you attend anglican or bahai serv ices? Never 08/01/2022 Active [...] Answer Date Recorded Total Score 16 12/09/2023 [facility] of Occupat ional Health - [...] Recorded Do you need help finding a [facility] career center and/or a training [...] family, patient needs to fllow up with [facility] Dc documented as of this encounter Visit Diagnoses Diagnosis Change in bowel habits- Primary Other symptoms involving digestive system documented in this encounter Additional Health Concerns Assessment Noted Time PHQ-9 Depression Total Score: 16 024 8:43 AM EDT documented as of this encounter Care Teams Aircraft Refueler Relationship Specialty Start Date End Date Cisco Blanc DO [address] [facility] [place] [address] PCP - General Family Medicine 12/19/19 documented as of this encounter
--- OUTSIDE RECORDS SUMMARY | 2025-02-14 13:00 | XMS_ITS | Encounter Summary ---
Author Organization [employer] Address [id number] [address] [place] [address] Care Team Providers Care Grievance Manager Name Role Phone Cisco Blanc DO Primary Care Provider [phone] Reason for Visit * Reason Onset Date Comments Med Refill 02/06/2025 Encounter Details Date Type Department Care Team (Late st Contact Info) Description 02/06/2025 Refill [facility] - Family Medicine [address] [place] [address] Cisco Blanc DO [address], [facility] [place] [address] Social History Tobacco Use Types Packs/Day Years Used Date Smoking Tobacco: Former Cigarettes 1 34 1 09/23/1984 - 12/20/2018 Passive Smoke Exposure: Past Smokeless Tobacco: Never Comments:vape, today Alcohol Use Standard Drinks/Week Comments Yes 0 (1 standard drink = 0.6 oz pur e alcohol) Occasional C Utilities Answer Date Recorded In the past 12 months has [employer] electric, gas, oil, or water company threatened [...] week 08/01/2022 How often do you attend sabianist or jew serv ices? Never 08/01/2022 Active Member of [...] Answer Date Recorded Total Score 21 12/10/2024 [facility] of Occupat ional Health - Occupational [...] Recorded Do you need help finding a [facility] career center and/or a training [...] family, patient needs to fllow up with [facility] documented as of this encounter Visit Diagnoses Not on filedocumented in this encounter Additional Health Concerns Assessment Noted Time PHQ-9 Depression Total Score: 21 025 1:04 PM EDT documented as of this encounter Care Teams Grievance Manager Relationship Specialty Start Date End Date Cisco Blanc DO [address] [facility], [facility] [place] [address] PCP - General Family Medicine 12/19/19 documented as of this encounter
--- OUTSIDE RECORDS SUMMARY | 2025-02-14 13:00 | XMS_ITS | Clinical Summary ---
Author Organization [employer] Address [id number] [address] [place] [address] Care Team Providers Care Wellness Program Administrator Name Role Phone GerardoCisco cao Primary Care Provider Allergies No known active allergies Medications testosterone [...] morning. 510 g 5 01/29/20 25 Active wheat dextrin (BENEFIBER SUGAR FREE, DEXTRIN,) 3 gram/4 gram powder Take 3 g by mouth in the morning. 152 g 5 02/07/20 25 Active cloNIDine (CATAPRES) 0.1 mg tablet [...] 144 g 5 01/29/20 25 2024 Discontinued BENEFIBER SUGAR FREE, DEXTRIN, 3 gram/4 gram powder take 3 (THREE) grams BY MOUTH IN THE MORNING 152 g 5 01/30/20 25 2024 Discontinued(R eorder) Active Problems Problem Noted Date Diagnosed Date [...] Encounters Date Type Department Care Team Description 02/06/2025 Refill [facility] - Family Medicine [address] [place] [address] Cisco Blanc, DO 01/28/2025 Refill [facility] - Family Medicine [address] [place] [address] Cisco Blanc, DO 01/26/2025 Refill [facility] - Family Medicine [address] [place] [address] Cisco Blanc, DO 12/31/2024 Telephone [facility] - Family Medicine [address] [place] [address] Linda Marc CMA 12/31/2024 Refill [facility] - Family Medicine [address] [place] [address] Cisco Blanc, 12/26/2024 Orders Only [facility] - Family Medicine [address] [place] [address] Cisco Blanc, DO Chronic idiopathic constipation (Primary Dx); Hepatitis C virus infection without hepatic coma, unspecified chronicity 12/20/2024 Orders Only [facility] - Family Medicine [address] [place] [address] Cisco Blanc, DO 12/17/2024 Orders Only [facility] - Family Medicine [address] [place] [address] Cisco Blanc, Irritable bowel syndrome with both constipation and diarrhea (Primary Dx) 12/17/2024 Telephone [facility] - Family Medicine [address] [place] [address] Barbara De La Torre CMA 12/14/2024 Refill [facility] - Family Medicine [address] [place] [address] Cisco Blanc, Anal fissure (Primary Dx) 12/14/2024 Orders Only [facility] - Family Medicine [address] [place] [address] Cisco Blanc, 12/12/2024 Orders Only [facility] - Family [facility] [address] [place] [address] Cisco Blanc, 12/12/2024 Refill [facility] - Family Medicine [address] [place] [address] Cisco Blanc, 12/10/2024 9:08 PM EDT - 12/10/2024 11:59 PM EDT Hospital Encounter [facility] [address] [facility] [address] [place] [address] Hypogonadism in male; Encounter for screening for malignant neoplasm of prostate; Iron overload; Anxiety; Overweight; Well adult exam Discharge Disposition: Home 12/10/2024 1:00 PM EDT Office Visit [facility] - Family Medicine [address] [place] [address] Cisco Blanc, Well adult exam (Primary Dx); Anxiety; Overweight; Iron overload; Encounter for screening for malignant neoplasm of prostate; Ex-smoker; Hypogonadism in male; Severe episode of recurrent major depressive disorder, without psychotic features (CMS-HCC); Irritable bowel syndrome with both constipation and diarrhea 12/09/2024 Travel from Last 3 Months Immunizations Immunization Administration [...] Recorded In the past 12 months has th e electric, gas, oil, or water company threatened [...] week 08/01/2022 How often do you attend scientologist or zoroastrian serv ices? Never 08/01/2022 Active Member of [...] Answer Date Recorded Total Score 21 12/10/2024 [facility] of Occupat ional Health - Occupational Stress [...] Recorded Do you need help finding a [employer] career center and/or a training program? No [...] family, patient needs to [facility] with [facility] Medical Devices Not on file Procedures Procedure [...] - 4.67 uIU/mL 12/10/2024 11:04 PM EDT [facility] PLASMA 12/10/2024 1:37 PM EDT 12/10/2024 9:30 PM EDT us Cisco Blanc DO LAB BLOOD ORDERABLES Final R esult [facility] [address] [facility] [place] [address] * Prostatic specific antigen screen (12/10/2024 1:37 PM EDT) Prostatic specific antigen, screen 0.57 0.00 - 4.00 ng/mL 12/10/2024 11:00 PM EDT [facility] Comment: The method used for this test is Graciela Shashi DXI chemiluminescent immunoassay. Values obtained by different assay methods cannot be used interchangeably. Serum / Unknown 12/10/2024 1 :37 PM EDT 12/10/2024 9:30 PM EDT us [facility]LO[facility] Final R esult [facility] [address] [place] [address] * CBC without diff (12/10/2024 1:37 PM EDT) White Blood Cells 5.2 4.0 - 11.0 X10E9/L 12/10/2024 10:44 PM EDT [facility] RBC count 5.04 4.10 - 5.70 X10E12/L 12/10/2024 10:44 PM EDT [facility] Hemoglobin 16.1 13.0 - 17.0 g/dL 12/10/2024 10:44 PM EDT [facility] Hematocrit 48.2 39 - 49 % 12/10/2024 10:44 PM EDT [facility] MCV 96 80 - 100 fL 12/10/2024 10:44 PM EDT [facility] MCH 31.9 27 - 34 pg 12/10/2024 10:44 PM EDT [facility] MCHC 33.4 32 - 36 g/dL 12/10/2024 10:44 PM EDT [facility] RDW 13.5 11.5 - 15.0 % 12/10/2024 10:44 PM EDT [facility] Platelets 184 150 - 450 X10E9/L 12/10/2024 10:44 PM EDT [facility] MPV 9.6 7 - 12 fL 12/10/2024 10:44 PM EDT [facility] Blood / Unknown 12/10/2024 1 :37 PM EDT 12/10/2024 9:30 PM EDT us Cisco Carrillo DO LAB BLOOD ORDERABLES Final R esult [facility] [address] [place] [address] * Iron (12/10/2024 1:37 PM EDT) Iron 184 50 - 212 ug/dL 12/10/2024 10:55 PM EDT [facility] Blood (PLASMA) 12/10/2024 1: 37 PM EDT 12/10/2024 9:30 PM EDT us Cisco Blanc DO LAB BLOOD ORDERABLES Final R esult [facility] [address] [address] [place] [address] * (ABNORMAL) Lipid profile (12/10/2024 1:37 PM EDT) Cholesterol 183 150 - 200 mg/dL 12/10/2024 10:55 PM EDT [facility] Triglycerides 119 27 - 150 mg/dL 12/10/2024 10:55 PM EDT [facility] HDL Cholesterol 38(L) >39 mg/dL 10:55 PM EDT [facility] Comment: HDL <40 mg/dL - High Risk HDL > or = 40mg/dL- Desirable HDL >60 mg/dL - Negative Risk VLDL 24 0 - 30 mg/dL 12/10/2024 10:55 PM EDT [facility] LDL (calc) 121 <130 mg/dL 12/10/2024 10:55 PM EDT [facility] Comment: LDL <100 mg/dL - Desirable LDL >160 mg/dL - High Risk Cholesterol:HDL Ratio 4.8 1.0 - 5.0 12/10/2024 10:55 PM EDT [facility] PLASMA 12/10/2024 1:37 PM EDT 12/10/2024 9:30 PM EDT us Cisco Blanc DO LAB BLOOD ORDERABLES Final R esult [facility] [address] [place] [address] * Comprehensive metabolic panel (12/10/2024 1:37 PM EDT) Sodium 142 134 - 146 mmol/L 12/10/2024 10:55 PM EDT [facility] Potassium, Bld 4.2 3.5 - 5.0 mmol/L 12/10/2024 10:55 PM EDT [facility] Chloride 105 98 - 109 mmol/L 12/10/2024 10:55 PM EDT [facility] CO2 26 22 - 32 mmol/L 12/10/2024 10:55 PM EDT [facility] Anion gap 11 5 - 15 mmol/L 12/10/2024 10:55 PM EDT [facility] BUN 13 5 - 23 mg/dL 12/10/2024 10:55 PM EDT [facility] Creatinine 0.94 0.60 - 1.30 mg/dL 12/10/2024 10:55 PM EDT [facility] Comment:METHOD TRACEABLE TO IDMS STANDARD Glucose 86 65 - 99 mg/dL 12/10/2024 10:55 PM EDT [facility] Calcium 9.6 8.5 - 10.5 mg/dL 12/10/2024 10:55 PM EDT [facility] Total Protein 7.4 6.0 - 8.0 g/dL 12/10/2024 10:55 PM EDT [facility] Albumin 4.5 3.2 - 5.3 g/dL 12/10/2024 10:55 PM EDT [facility] Alkaline Phosphatase 101 39 - 130 U/L 12/10/2024 10:55 PM EDT [facility] AST 28 0 - 41 U/L 12/10/2024 10:55 PM EDT [facility] ALT 38 0 - 40 U/L 12/10/2024 10:55 PM EDT [facility] Total bilirubin 0.6 0.3 - 1.2 mg/dL 12/10/2024 10:55 PM EDT [facility] eGFR (CKD-EPI)non-rac e dependent >90 >59 ml/min/1.7 3sq.m 12/10/2024 10:55 PM EDT [facility] Comment: Reported eGFR is based on the CKD-EPI 2020 equation that does not use a race coefficient. PLASMA 12/10/2024 1:37 PM EDT 12/10/2024 9:30 PM EDT us Cisco Blanc DO LAB BLOOD ORDERABLES Final R esult [facility] [address] [facility] [facility] [address] [place] [address] * Colonoscopy Report (02/17/2024 1:59 PM EDT) [...] Personal/Family Self 1970 [address] [place] [address] [employer] * Guarantor: [id number] Account Type Relation to Patient Date of Phone Billing [place] [address] [place] [address] * Guarantor: MILKA CHRISTY Account Type Relation [...] 1:54 PM 01/17/2018 3:11 PM Care Teams Wellness Program Administrator Relationship Specialty Start Date End Date Cisco Blanc DO [address], [place] [address] PCP - General Family Medicine 12/19/19
--- OUTSIDE RECORDS SUMMARY | 2025-02-14 13:00 | XMS_ITS | Patient Health Record ---
Author Organization [employer] [facility] vices Address [address] [place] [id number] Care Team Providers Care Barn Worker Name Role Phone Brooke Castellano Primary Care Provider Allergies No Known Allergies Reason For Referral [...] patient entered data PRAPARE Question Answer Notes Date Completed/Updated: 05/17/2024 merritt nt entered data What is your current housing situation? I have housing patient entered data Are you worried about losing your housing? No patient entered data What is the highest level of school that you have finished? More than high school patient entered data What is your current work situation? Unemployed and seeking work patient entered data In the past year, have you o r any family members you live with been unable to get any of the following when it was really needed? Check all that apply Utilities patient entered data Has lack of transportation k ept you from medical appointments, meetings, work or from getting things needed for daily living? No patient entered margie a How often do you see or talk to people that you care about and feel close to? (For example: talking to friends on the phone, visiting friends or family, going to muslim or club meetings) More than 5 times a week patient entered data In the past year have you sp ent more than 2 nights in a row in a alf, jail, group home center, or juvenile correctional facility? No patient entered data Do you feel physically and emotionally safe where you currently live? Yes patient entered data In the past year, have you b een afraid of your partner or ex-partner? No patient entered data Are you a refugee? No patient en tered data What country are you from? [place] sincere lisa entered data CRAFFT V2.1 Question Answer Notes [...] (like other illegal drugs, pills, prescription or [id number] medications, and things that you sniff, herndon, vape, or inject)? Say 0 if none 0 Have you ever ridden in a [place] R driven by someone (including yourself) who was high or had been using alcohol or drugs? 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) Active confirmed Problem 715763760 Agoraphobia with panic attacks (F40.01) Active confirmed Problem 774204578 BMI 27.0-27.9,adult (Z68.27) Active confirmed Problem 501704068 Dietary counseling (Z71.3) Active confirmed Problem 3023868631 H/O: drug dependency (F19.21) Active confirmed Vital Signs Heart Rate 89 /min 05/17/2024 Blood pressure diastolic 85 mm Hg 05/17/2024 Height-cm 172.72 cm 05/17/2024 Weight-kg 83.01 kg 05/17/2024 Height 68 in 05/17/2024 Blood pressure systolic 130 mm Hg 05/17/2024 Weight 183 lbs 05/17/2024 BMI 27.82 kg/m2 05/17/2024 Encounters Encounter Location Date Provider Diagnosis Main [address] [place], [place] [id number] 05/17/2024 Brooke Castellano Dietary counseling Z 71.3 [...] take precautions to avoid heatstroke and heat exhaustion.Handicrafts Teacher ing encouraged. Advised that due to his [...] take precautions to avoid heatstroke and heat exhaustion.Handicrafts Teacher ing encouraged. Advised that due to his [...] take precautions to avoid heatstroke and heat exhaustion.Handicrafts Teacher ing encouraged. Advised that due to his [...] take precautions to avoid heatstroke and heat exhaustion.Handicrafts Teacher ing encouraged. Advised that due to his [...] take precautions to avoid heatstroke and heat exhaustion.Handicrafts Teacher ing encouraged. Advised that due to his [...] take precautions to avoid heatstroke and heat exhaustion.Handicrafts Teacher ing encouraged. Advised that due to his past HEVER, benzodiazepines are not a good choice due to high addiction possibility and potential for abuse. 05/17/2024 Cigarette nicotine dependence without complication (ICD-10 - F17.210) Patient provided with [phone] OW phone line. Patient provided with [phone] OW phone line. Patient provided with [phone]-DNQP-N OW phone line. Start Zoloft 50 mg [...] take precautions to avoid heatstroke and heat exhaustion.Handicrafts Teacher ing encouraged. Advised that due to his [...] take precautions to avoid heatstroke and heat exhaustion.Handicrafts Teacher ing encouraged. Advised that due to his [...] take precautions to avoid heatstroke and heat exhaustion.Handicrafts Teacher ing encouraged. Advised that due to his past HEVER, benzodiazepines are not a good choice due to high addiction possibility and potential for abuse. Plan Of Treatment No Information Insurance Providers Payer Name Payer Address Payer Phone Subscriber Number Group Number Insured Name Patient Relationship to Insured Coverage Start Date Coverage End Date [facility] [address] [place] [address] [id number] Chai Russell Self - patient is the insured 4 Medicaid CFC after [facility] [address] [place] [address] [id number] [employer], Chai Self - patient is the insured 4
--- OUTSIDE RECORDS SUMMARY | 2025-02-14 13:00 | XMS_ITS | Encounter Summary ---
Author Organization [employer] Address [id number] [address] [place] [address] Care Team Providers Care Granite Block Paver Name Role Phone Cisco Blanc Primary Care Provider Encounter Details Date Type Department Care Team (Late st Contact Info) Description 02/13/2024 Orders Only [facility] - Family Medicine [address] [place] [address] Ty Burciaga DO [address] [place] [address] Change in bowel habits (Primary Dx) Social [...] week 08/01/2022 How often do you attend faith or samaritan serv ices? Never 08/01/2022 Active Member of [...] Answer Date Recorded Total Score 16 12/09/2023 [facility] of Occupat ional Health - [...] Recorded Do you need help finding a [facility] career center and/or a training program? [...] family, patient needs to fllow up with [facility] Dc documented as of this encounter Visit Diagnoses Diagnosis Change in bowel habits- Primary Other symptoms involving digestive system documented in this encounter Additional Health Concerns Assessment Noted Time PHQ-9 Depression Total Score: 16 024 8:43 AM EDT documented as of this encounter Care Teams Granite Block Paver Relationship Specialty Start Date End Date Cisco Blanc DO [address] [facility] [place] [address] PCP - General Family Medicine 12/19/19 documented as of this encounter
--- OUTSIDE RECORDS SUMMARY | 2025-02-14 13:00 | XMS_ITS | Encounter Summary ---
Author Organization [employer] Address [id number] [address] [place] [address] Care Team Providers Care Software Architect Name Role Phone Cisco Blanc Primary Care Provider Encounter Details Date Type Department Care Team (Late st Contact Info) Description 02/14/2024 [facility] [address] [place] [address] Linda Marc CMA Social History Tobacco Use [...] week 08/01/2022 How often do you attend congregation or bahai serv ices? Never 08/01/2022 Active [...] Answer Date Recorded Total Score 16 12/09/2023 [facility] of Occupat ional Health - Occupational Stress [...] Recorded Do you need help finding a [employer] career center and/or a training program? [...] him know that Dr Burciaga sent in Digilab to his pharmacy also Isent him a [...] patient needs to [facility]llow up with [facility] D[facility] documented as of this encounter Visit Diagnoses Not on filedocumented in this encounter Additional Health Concerns Assessment Noted Time PHQ-9 Depression Total Score: 16 024 8:43 AM EDT documented as of this encounter Care Teams Software Architect Relationship Specialty Start Date End Date Cisco Blanc DO [address], [facility] [place] [address] PCP - General Family Medicine 12/19/19 documented as of this encounter
--- OUTSIDE RECORDS SUMMARY | 2025-02-14 13:00 | XMS_ITS | Encounter Summary ---
Author Organization [employer] tem Address [id number] [address] [place] [address] Care Team Providers Care Automatic Gluing Machine Operator Name Role Phone Cisco Blanc Primary Care Provider Encounter Details Date Type Department Care Team (Late st Contact Info) Description 02/06/2024 [facility] [address] [place] [phone] Linda Marc CMA Social History Tobacco Use [...] week 08/01/2022 How often do you attend mosque or synagogue serv ices? Never 08/01/2022 Active Member of [...] Answer Date Recorded Total Score 16 12/09/2023 [facility] of Occupat ional Health - Occupational Stress [...] Recorded Do you need help finding a [employer] al career center and/or a training program? [...] would like the [facility] his pharmacy is [facility] in [place]. He is a Dr Blanc pt. Change [...] family, patient needs to fllow up with [facility] documented as of this encounter Visit Diagnoses Not on filedocumented in this encounter Additional Health Concerns Assessment Noted Time PHQ-9 Depression Total Score: 16 024 8:43 AM EDT documented as of this encounter Care Teams Automatic Gluing Machine Operator Relationship Specialty Start Date End Date Cisco Blanc DO [address], [facility] [place] [address] PCP - General Family Medicine 12/19/19 documented as of this encounter
--- OUTSIDE RECORDS SUMMARY | 2025-02-14 13:00 | XMS_ITS | Encounter Summary ---
Author Organization [employer] tem Address [id number] [address] [place] [address] Care Team Providers Care Cocoa Bean Roaster Helper Name Role Phone Cisco Blanc Primary Care Provider Encounter Details Date Type Department Care Team (Late st Contact Info) Description 02/13/2024 [facility]phone [facility] [address] [place] [phone] Linda Marc CMA Social History Tobacco Use [...] How often do you attend jainism or denominational serv ices? Never 08/01/2022 Active Member of [...] Answer Date Recorded Total Score 16 12/09/2023 [facility] of Occupat ional Health - Occupational Stress [...] Recorded Do you need help finding a [employer] al career center and/or a training program? [...] family, patient needs to fllow up with [facility] documented as of this encounter Visit Diagnoses Not on filedocumented in this encounter Additional Health Concerns Assessment Noted Time PHQ-9 Depression Total Score: 16 024 8:43 AM EDT documented as of this encounter Care Teams Cocoa Bean Roaster Helper Relationship Specialty Start Date End Date Cisco Blanc DO [address], [place] [address] PCP - General Family Medicine 12/19/19 documented as of this encounter
--- OUTSIDE RECORDS SUMMARY | 2025-02-14 13:01 | XMS_ITS | Encounter Summary ---
Author Organization [employer] tem Address [id number] [address] [place] [address] Care Team Providers Care Network Relations Consultant Name Role Phone Cisco Blanc Primary Care Provider [phone] Encounter Details Date Type Department Care Team (Late st Contact Info) Description 09/06/2024 Orders Only [facility] Internal Medicine - Family Medicine [address] [place] [address] Ref Prov, [place] [address] Social History Tobacco Use Types Packs/Day Years [...] week 08/01/2022 How often do you attend islam or evangelical serv ices? Never 08/01/2022 Active Member of [...] Answer Date Recorded Total Score 21 03/15/2024 [facility] - Occupational Stress Questionnaire Answer Date Recorded [...] Recorded Do you need help finding a [facility] career [facility] and/or a training [...] family, patient needs to fllow up with [facility] documented as of this encounter [...] documented as of this encounter Care Teams Network Relations Consultant Relationship Specialty Start Date End Date Cisco Blanc DO [address], [place] [address] PCP - General Family Medicine 12/19/19 documented as of this encounter
--- OUTSIDE RECORDS SUMMARY | 2025-02-14 13:01 | XMS_ITS | Encounter Summary ---
Author Organization [employer] tem Address [id number] [address] [place] [address] Care Team Providers Care Undergraduate Intern Name Role Phone Cisco Blanc Primary Care Provider Encounter Details Date Type Department Care Team (Late st Contact Info) Description 02/06/2024 Orders Only [facility] Internal Medicine - Family Medicine [address] [place] [phone] Ty Burciaga DO [address] [place] [address] Change in bowel habits (Primary Dx) Social [...] week 08/01/2022 How often do you attend scientology or congregation serv ices? Never 08/01/2022 Active Member of [...] Answer Date Recorded Total Score 16 12/09/2023 [facility] of Occupat ional Health - Occupational Stress [...] Do you need help finding a [facility] career center and/or a training program? [...] [facility] documented as of this encounter Visit Diagnoses Diagnosis Change in bowel habits- Primary Other symptoms involving digestive system documented in this encounter Additional Health Concerns Assessment Noted Time PHQ-9 Depression Total Score: 16 024 8:43 AM EDT documented as of this encounter Care Teams Undergraduate Intern Relationship Specialty Start Date End Date Cisco Blanc DO [address] [facility] [place] [address] PCP - General Family Medicine 12/19/19 documented as of this encounter
--- OUTSIDE RECORDS SUMMARY | 2025-02-14 13:01 | XMS_ITS | Encounter Summary ---
Author Organization [employer] tem Address [id number] [address] [place] [address] Care Team Providers Care Surveillance Dual Rate Officer Name Role Phone Cisco Blanc Primary Care Provider Encounter Details Date Type Department Care Team (Late st Contact Info) Description 05/30/2024 Orders Only [facility] Internal Medicine - Family Medicine [address] [place] [address] Ref Prov, [place] [address] Social History Tobacco Use Types Packs/Day Years [...] How often do you attend baptism or lutheran serv ices? Never 08/01/2022 Active Member of [...] Answer Date Recorded Total Score 21 03/15/2024 [facility] - Occupational Stress Questionnaire Answer Date [...] Recorded Do you need help finding a [facility] career [facility] and/or a training program? [...] family, patient needs to fllow up with [facility] documented as of this encounter Procedures [...] documented as of this encounter Care Teams Surveillance Dual Rate Officer Relationship Specialty Start Date End Date Cisco Blanc DO [address], [place] [address] PCP - General Family Medicine 12/19/19 documented as of this encounter
--- OUTSIDE RECORDS SUMMARY | 2025-02-14 13:01 | XMS_ITS | Encounter Summary ---
Author Organization [employer] tem Address [id number] [address] [place] [address] Care Team Providers Care Certified Ophthalmic Technician Name Role Phone Cisco Blanc Primary Care Provider Encounter Details Date Type Department Care Team (Late st Contact Info) Description 02/24/2023 Orders Only [facility] Internal Medicine - Family Medicine [address] [place] [phone] External, Scanning Provider Social History Tobacco Use [...] How often do you attend anglican or mandaen serv ices? Never 08/01/2022 Active Member of [...] Answer Date Recorded Total Score 0 02/17/2023 [facility] of Occupat ional Health - Occupational [...] Recorded Do you need help finding a [facility] career center and/or a training [...] family, patient needs to fllow up with [facility] documented as of this [...] documented as of this encounter Care Teams Certified Ophthalmic Technician Relationship Specialty Start Date End Date Cisco Blanc DO [address] [facility], [place] [address] PCP - General Family Medicine 12/19/19 documented as of this encounter
--- OUTSIDE RECORDS SUMMARY | 2025-02-14 13:01 | XMS_ITS | Encounter Summary ---
Author Organization [employer] tem Address [id number] [address] [place] [address] Care Team Providers Care Outside Sales Engineer Name Role Phone Cisco Blanc Primary Care Provider [phone] Encounter Details Date Type Department Care Team (Late st Contact Info) Description 02/25/2023 Orders Only [facility] Internal Medicine - Family Medicine [address] [place] [phone] External, Scanning Provider Social History Tobacco Use [...] How often do you attend sikhism or faith serv ices? Never 08/01/2022 Active [...] Answer Date Recorded Total Score 0 02/17/2023 [facility] [place] of Occupat ional Health - Occupational Stress [...] Do you need help finding a [facility] career center and/or a training program? No [...] family, patient needs to fllow up with [facility] documented as of this [...] documented as of this encounter Care Teams Outside Sales Engineer Relationship Specialty Start Date End Date Cisco Blanc DO [address] [place] [address] PCP - General Family Medicine 12/19/19 documented as of this encounter
--- OUTSIDE RECORDS SUMMARY | 2025-02-14 13:01 | XMS_ITS | Encounter Summary ---
Author Organization [employer] Address [id number] [address] [place] [address] Care Team Providers Care Electronic Test Technician Name Role Phone Cisco Blanc DO Primary Care Provider [phone] Reason for Visit * Reason Comments Med Refill Encounter Details Date Type Department Care Team (Late st Contact Info) Description 05/12[facility]2022 [facility] [address] [place] [phone] Cisco Blanc DO [address] [facility], [facility] [place] [address] Social History Tobacco Use Types Packs/Day Years [...] fllow up with [facility]c documented as of this encounter Visit Diagnoses Not on filedocumented in this encounter Care Teams Electronic Test Technician Relationship Specialty Start Date End Date Cisco Blanc DO [address] [facility] [place] [address] PCP - General Family Medicine 12/19/19 documented as of this encounter
--- OUTSIDE RECORDS SUMMARY | 2025-02-14 13:01 | XMS_ITS | Encounter Summary ---
Author Organization [employer] tem Address [id number] [address] [place] [address] Care Team Providers Care Admin Assistant Name Role Phone Cisco Blanc DO Primary Care Provider [phone] Reason for Visit * Reason Comments Med Refill Encounter Details Date Type Department Care Team (Late st Contact Info) Description 06/18/2022 Refill [facility] Internal Medicine - Family Medicine [address] [place] [address] Cisco Blanc DO [address], [facility] [place] [address] Social History Tobacco Use Types Packs/Day Years [...] family, patient needs to fllow up with [facility] upon Dc documented as of this encounter Visit Diagnoses Not on filedocumented in this encounter Care Teams Admin Assistant Relationship Specialty Start Date End Date Cisco Blanc DO [address] [facility], [place] [address] PCP - General Family Medicine 12/19/19 documented as of this encounter
--- OUTSIDE RECORDS SUMMARY | 2025-02-14 13:01 | XMS_ITS | Encounter Summary ---
Author Organization [employer] tem Address [facility]-[id number] [address] [place] [address] Care Team Providers Care Exhibit Builder Name Role Phone Cisco Blanc DO Primary Care Provider [phone] Reason for Visit * Reason Comments Med Refill Encounter Details Date Type Department Care Team (Late st Contact Info) Description 01/18/2023 Refill [facility] Internal Medicine - Family Medicine [address] [place] [address] Cisco Blanc DO [address], [facility] [place] [address] Social History Tobacco Use Types Packs/Day Years [...] week 08/01/2022 How often do you attend congregational or pentecostal serv ices? Never 08/01/2022 Active Member of [...] Answer Date Recorded Total Score 9 08/01/2022 [facility] of Occupat ional Health - [...] documented as of this encounter Care Teams Exhibit Builder Relationship Specialty Start Date End Date Cisco Blanc DO [address] [facility], [place] [address] PCP - General Family Medicine 12/19/19 documented as of this encounter
--- OUTSIDE RECORDS SUMMARY | 2025-02-14 13:01 | XMS_ITS | Encounter Summary ---
Author Organization [employer] Address [id number] [address] [place] [address] Care Team Providers Care Pattern Chain Maker Supervisor Name Role Phone Cisco Blanc Primary Care Provider Encounter Details Date Type Department Care Team (Late st Contact Info) Description 06/01/2024 Orders Only [facility] Internal Medicine - Family Medicine [address] [place] [address] Ref Prov, [place] [address] Social History Tobacco Use Types Packs/Day Years [...] How often do you attend advent or worship serv ices? Never 08/01/2022 Active Member of [...] Answer Date Recorded Total Score 21 03/15/2024 [facility] Occupational Stress Questionnaire Answer Date [...] Recorded Do you need help finding a [facility] career center and/or a training program? [...] home with self care General Yes Jenny oNonan, RN Note: Evaluation of progress towards goal: with support from friends and family, patient needs to fllow up with [facility] documented as of this encounter [...] documented as of this encounter Care Teams Pattern Chain Maker Supervisor Relationship Specialty Start Date End Date Cisco Blanc DO [address] [facility], [place] [address] PCP - General Family Medicine 12/19/19 documented as of this encounter
--- OUTSIDE RECORDS SUMMARY | 2025-02-14 13:01 | XMS_ITS | Encounter Summary ---
Author Organization [employer] tem Address [id number] [address] [place] [address] Care Team Providers Care Credit And Collection Manager Name Role Phone Cisco Blanc DO Primary Care Provider [phone] Reason for Visit * Reason Comments Med Refill Encounter Details Date Type Department Care Team (Late st Contact Info) Description 04/10/2024 Refill [facility] Internal Medicine - Family Medicine [address] [place] [address] Cisco Blanc DO [address], [facility] [place] [address] Social History Tobacco Use Types Packs/Day Years [...] How often do you attend scientologist or mormonism serv ices? Never 08/01/2022 Active [...] Answer Date Recorded Total Score 21 03/15/2024 [facility] of Occupat ional Health - [...] Recorded Do you need help finding a [facility] career center and/or a training program? [...] documented as of this encounter Care Teams Credit And Collection Manager Relationship Specialty Start Date End Date Cisco Blanc DO [address] [facility], [facility] [place] [address] PCP - General Family Medicine 12/19/19 documented as of this encounter
--- OUTSIDE RECORDS SUMMARY | 2025-02-14 13:01 | XMS_ITS | Clinical Summary ---
Author Organization [facility] Address [address] [place] [address] Care Team Providers Care Manager Cafe Name Role Phone Unavailable Primary Care Provider [...]
--- OUTSIDE RECORDS SUMMARY | 2025-02-14 13:01 | XMS_ITS | Encounter Summary ---
Author Organization [employer] tem Address [id number] [address] [place] [address] Care Team Providers Care Air Drill Operator Name Role Phone Cisco Blanc Primary Care Provider Encounter Details Date Type Department Care Team (Late st Contact Info) Description 03/30/2023 Orders Only [facility] Internal Medicine - Family Medicine [address] [place] [address] Ref Prov, [place] [address] Social History Tobacco Use Types Packs/Day Years [...] week 08/01/2022 How often do you attend taoist or adventist serv ices? Never 08/01/2022 Active [...] Answer Date Recorded Total Score 0 02/17/2023 [facility] of Occupat ional Health - [...] documented as of this encounter Care Teams Air Drill Operator Relationship Specialty Start Date End Date Cisco Blanc DO [address], [facility] [place] [address] PCP - General Family Medicine 12/19/19 documented as of this encounter
--- OUTSIDE RECORDS SUMMARY | 2025-02-14 13:01 | XMS_ITS | Encounter Summary ---
Author Organization [employer] tem Address [facility][id number] [address] [place] [address] Care Team Providers Care Ruching Machine Operator Name Role Phone Cisco Blanc DO Primary Care Provider [phone] Reason for Visit * Reason Comments Med Refill Encounter Details Date Type Department Care Team (Late st Contact Info) Description 09/15/2022 Refill [facility] Internal Medicine - Family Medicine [address] [place] [address] Cisco Blanc DO [address], [facility] [address] Social History Tobacco Use Types Packs/Day Years [...] week 08/01/2022 How often do you attend jewish or worship serv ices? Never 08/01/2022 Active [...] family, patient needs to [facility] with [facility] documented as of this encounter Visit Diagnoses Not on filedocumented in this encounter Additional Health Concerns Assessment Noted Time PHQ-9 Depression Total Score: 9 08/01/20 22 6:00 PM EST documented as of this encounter Care Teams Ruching Machine Operator Relationship Specialty Start Date End Date Cisco Blanc DO [address] [facility], [place] [address] PCP - General Family Medicine 12/19/19 documented as of this encounter
--- OUTSIDE RECORDS SUMMARY | 2025-02-14 13:01 | XMS_ITS | Encounter Summary ---
Author Organization [employer] tem Address [id number] [address] [place] [address] Care Team Providers Care Educational Technologist Name Role Phone Cisco Blanc Primary Care Provider Encounter Details Date Type Department Care Team (Late st Contact Info) Description 05/07/2024 Orders Only [facility] Internal Medicine - Family Medicine [address] [place] [address] Ref Prov, [place] [address] Social History Tobacco Use Types Packs/Day Years [...] week 08/01/2022 How often do you attend pentecostal or buddhism serv ices? Never 08/01/2022 Active [...] Answer Date Recorded Total Score 21 03/15/2024 [facility] of Occupat [facility] - Occupational Stress Questionnaire Answer [...] Recorded Do you need help finding a [facility] career [facility] and/or a training [...] family, patient needs to fllow up with [facility] upon Dc documented as [...] documented as of this encounter Care Teams Educational Technologist Relationship Specialty Start Date End Date Cisco Blanc DO [address] [facility], [place] [address] PCP - General Family Medicine 12/19/19 documented as of this encounter
--- OUTSIDE RECORDS SUMMARY | 2025-02-14 13:01 | XMS_ITS | Encounter Summary ---
Author Organization [employer] tem Address [id number] [address] [place] [address] Care Team Providers Care Disc Jockey Name Role Phone Cisco Blanc DO Primary Care Provider [phone] Reason for Visit * Reason Comments Med Refill Encounter Details Date Type Department Care Team (Late st Contact Info) Description 08/17/2022 Refill [facility] Internal Medicine - Family Medicine [address] [place] [address] Cisco Blanc DO [address], [facility] [place] [address] Social History Tobacco Use Types Packs/Day Years [...] How often do you attend scientologist or uatsdin serv ices? Never 08/01/2022 Active Member of [...] Answer Date Recorded Total Score 9 08/01/2022 [facility] of Occupat ional [...] to fllow up with [facility] documented as of this encounter Visit Diagnoses Not on filedocumented in this encounter Additional Health Concerns Assessment Noted Time PHQ-9 Depression Total Score: 9 08/01/20 22 6:00 PM EST documented as of this encounter Care Teams Disc Jockey Relationship Specialty Start Date End Date Cisco Blanc DO [address], [place] [address] PCP - General Family Medicine 12/19/19 documented as of this encounter
--- OUTSIDE RECORDS SUMMARY | 2025-02-14 13:01 | XMS_ITS | Patient Health Record ---
Author Organization [facility] [place] Address [address] [place] [address] Care Team Providers Care Charhouse Worker Name Role Phone Cisco Blanc DO [...] Problem Status W/U Status Risk Notes Problem [id number] Displaced fracture of second metatarsal bone, right foot, subsequent encounter for fracture with routine healing (S92.321D) Active confirmed Problem [id number] Displaced fracture of distal phalanx of right great toe, subsequent encounter for fracture with routine healing (S92.421D) Active confirmed Plan Of Treatment No Information Insurance Providers Payer Name Payer Address Payer Phone Subscriber Number Group Number Insured Name Patient Relationship to Insured Coverage Start Date Coverage End Date [employer] [place] [employer] [address] [place] [address] [id number] Chai Russell Self - patient is the insured Medical (General) History Medical History History ICD Code Hypertension I10 Right foot pain M79.671 Surgical History Surgery Date(Month/Year) appendectomy compartment syndrome left hand
--- OUTSIDE RECORDS SUMMARY | 2025-02-14 13:01 | XMS_ITS | Encounter Summary ---
Author Organization [employer] tem Address [id number] [address] [place] [address] Care Team Providers Care Airline Ticket Agent Name Role Phone Cisco Blanc Primary Care Provider Encounter Details Date Type Department Care Team (Late st Contact Info) Description 11/23/2023 Orders Only [facility] Internal Medicine - Family Medicine [address] [place] [address] External, Scanning Provider Social History Tobacco Use [...] How often do you attend congregational or confucianism serv ices? Never 08/01/2022 Active [...] Answer Date Recorded Total Score 0 02/17/2023 [facility] [place] of Occupat ional Health - Occupational Stress [...] you need help finding a [facility] and/or a training program? No [...] family, patient needs to fllow up with [facility] Dc documented as of this [...] documented as of this encounter Care Teams Airline Ticket Agent Relationship Specialty Start Date End Date Cisco Blanc DO [address], [place] [address] PCP - General Family Medicine 12/19/19 documented as of this encounter
--- OUTSIDE RECORDS SUMMARY | 2025-02-14 13:01 | XMS_ITS | Encounter Summary ---
Author Organization [employer] Address [id number] [address] [place] [address] Care Team Providers Care Preliminary School Psychologist Name Role Phone Cisco Blanc DO Primary Care Provider + [phone] Reason for Visit * Reason Comments Med Refill Encounter Details Date Type Department Care Team (Late st Contact Info) Description 05/12/2022 Refill [facility] - Family Medicine [address] [place] [phone] Michelle Francis APRN-CNP [address] [place] [address] Social History Tobacco Use Types Packs/Day Years [...] family, patient [facility] documented as of this encounter Visit Diagnoses Not on filedocumented in this encounter Care Teams Preliminary School Psychologist Relationship Specialty Start Date End Date Cisco Blanc DO [address], [place] [address] PCP - General Family Medicine 12/19/19 documented as of this encounter
--- OUTSIDE RECORDS SUMMARY | 2025-02-14 13:01 | XMS_ITS | Encounter Summary ---
Author Organization [employer] Address [facility] [id number] [address] [place] [address] Care Team Providers Care Maintenance Craftsman Name Role Phone Cisco Blanc DO Primary Care Provider [phone] Reason for Visit * Reason Comments Med Refill Encounter Details Date Type Department Care Team (Late st Contact Info) Description 08/30/2022 Refill [facility] - Family Medicine [address] [place] [address] Cisco Blanc DO [address], [facility] [place] [address] Social History Tobacco Use Types Packs/Day Years [...] week 08/01/2022 How often do you attend alevism or latter day serv ices? Never 08/01/2022 [...] Answer Date Recorded Total Score 9 08/01/2022 [facility] of Occupat ional Health - Occupational Stress [...] to fllow up with [facility] Dc documented as of this encounter Visit Diagnoses Not on filedocumented in this encounter Additional Health Concerns Assessment Noted Time PHQ-9 Depression Total Score: 9 08/01/20 22 6:00 PM EST documented as of this encounter Care Teams Maintenance Craftsman Relationship Specialty Start Date End Date Cisco Blanc DO [address], [place] [address] PCP - General Family Medicine 12/19/19 documented as of this encounter
--- OUTSIDE RECORDS SUMMARY | 2025-02-14 13:01 | XMS_ITS | Encounter Summary ---
Author Organization [employer] tem Address [id number] [address] [place] [address] Care Team Providers Care Drum Attendant Name Role Phone Cisco Blanc Primary Care Provider Encounter Details Date Type Department Care Team (Late st Contact Info) Description 03/11/2023 Orders Only [facility] - Family Medicine [address] [place] [phone] External, Scanning Provider Social History Tobacco Use [...] week 08/01/2022 How often do you attend yarsani or anabaptism serv ices? Never 08/01/2022 Active Member of [...] Date Recorded Total Score 0 02/17/2023 [facility] of Occupat ional Health - Occupational Stress [...] Recorded Do you need help finding a [facility] and/or a [...] family, patient needs to fllow up with [facility] Dc documented as of this [...] documented as of this encounter Care Teams Drum Attendant Relationship Specialty Start Date End Date Cisco Blanc DO [address] [facility], [place] [address] PCP - General Family Medicine 12/19/19 documented as of this encounter
--- OUTSIDE RECORDS SUMMARY | 2025-02-14 13:01 | XMS_ITS | Encounter Summary ---
Author Organization [employer] Address [id number] [address] [place] [address] Care Team Providers Care Solar Designer/Installer Name Role Phone Cisco Blanc DO Primary Care Provider [phone] Reason for Visit * Reason Comments Med Refill Encounter Details Date Type Department Care Team (Late st Contact Info) Description 02/15/2023 Refill [facility] - Family Medicine [address] [place] [address] Cisco Blanc DO [address], [facility] [place] [address] Social History Tobacco Use Types Packs/Day Years [...] How often do you attend hinduism or judaism serv ices? Never 08/01/2022 Active Member of [...] Answer Date Recorded Total Score 0 02/17/2023 [facility] of Occupat ional Health - Occupational [...] Recorded Do you need help finding a [facility] career [facility] and/or a training [...] family, patient needs to fllow up with [facility] upon Dc documented as of this encounter Visit Diagnoses Not on filedocumented in this encounter Additional Health Concerns Assessment Noted Time PHQ-9 Depression Total Score: 9 08/01/20 22 6:00 PM EST documented as of this encounter Care Teams Solar Designer/Installer Relationship Specialty Start Date End Date Cisco Blanc DO [address], [facility] [place] [address] PCP - General Family Medicine 12/19/19 documented as of this encounter
[2025-02-14 13:02] VITALS: BP 146/89; PULSE 100; TEMP 36.4; O2SAT 98; BMI 28.9
--- OUTSIDE RECORDS SUMMARY | 2025-02-14 13:02 | XMS_ITS | Referral Summary ---
Demographics Address [address] [place] [address] Home Phone Mobile Phone Email Address Preferred Language en Marital Status Single Holiness Affiliation Unknown Race White Ethnic Group Not or Lati no Author Organization [facility] [place] [facility] Address [address] [place] [address] Care Team Providers Care Fur Trimmer Name Role Phone Unavailable Primary Care Provider Unavailabl e Social History Tobacco Use Types Packs/Day Years Used Date Smoking Tobacco: Never Assessed [place] Safety & Environment Answer Date Rec orded Fear of Current or Ex-Partner Not on file Emotionally Abused Not on file 10/13/2023 Physically Abused Not on file 10/13/2023 Sexually Abused Not on file 10/13/2023 Physically or Sexually Abused Not on file Sex and Gender Information Value Date Recorded Sex Assigned at Not on file Legal Sex Male 11:50 PM EDT Gender Identity Not on file Sexual Orientation Not on file Plan of Treatment Not on file
--- OUTSIDE RECORDS SUMMARY | 2025-02-14 13:02 | XMS_ITS | Encounter Summary ---
Author Organization [employer] tem Address [id number] [address] [place] [address] Care Team Providers Care Modeler Name Role Phone Cisco Blanc DO Primary Care Provider Encounter Details Date Type Department Care Team (Late st Contact Info) Description 03/09/2024 Orders Only [facility] - Family Medicine [address] [place] [phone] Cisco Blanc DO [address], [place] [address] Irritable bowel syndrome with constipation (Primary Dx); [...] How often do you attend sikhism or anabaptist serv ices? Never 08/01/2022 Active Member of [...] Answer Date Recorded Total Score 16 12/09/2023 [facility] of Occupat ional Health - Occupational Stress [...] Recorded Do you need help finding a [facility] career center and/or a training program? [...] patient needs to [facility] with [facility] documented as of this encounter Visit Diagnoses Diagnosis Irritable bowel syndrome with constipation- Primary Irritable bowel syndrome Change in bowel habits Other symptoms involving digestive system documented in this encounter Additional Health Concerns Assessment Noted Time PHQ-9 Depression Total Score: 16 024 8:43 AM EDT documented as of this encounter Care Teams Modeler Relationship Specialty Start Date End Date Cisco Blanc DO [address] [facility], [place] [address] PCP - General Family Medicine 12/19/19 documented as of this encounter
--- OUTSIDE RECORDS SUMMARY | 2025-02-14 13:02 | XMS_ITS | Clinical Summary ---
Demographics Address [address] [place] [address] Home Phone Mobile Phone Email Address Preferred Language en Marital Status Single Jehovah'S Witness Affiliation Unknown Race White Ethnic Group Not or Lati no Author Organization [facility] Address [address] [place] [address] Care Team Providers Care Digital Production Operator Name Role Phone Unavailable Primary Care Provider [...]
--- OUTSIDE RECORDS SUMMARY | 2025-02-14 13:02 | XMS_ITS | Encounter Summary ---
Author Organization [employer] Address [id number] [address] [place] [address] Care Team Providers Care Army Officer Name Role Phone Cisco Blanc Primary Care Provider Encounter Details Date Type Department Care Team (Late st Contact Info) Description 03/12/2024 Orders Only [facility] - Family Medicine [address] [place] [address] Ref Prov, [place] [address] Social History Tobacco Use Types Packs/Day Years [...] week 08/01/2022 How often do you attend druze or mosque serv ices? Never 08/01/2022 Active Member of [...] Answer Date Recorded Total Score 21 03/15/2024 [facility] of Occupat [facility] - Occupational Stress Questionnaire Answer [...] Recorded Do you need help finding a [employer] career center and/or a training program? No [...] documented as of this encounter Care Teams Army Officer Relationship Specialty Start Date End Date Cisco Blanc DO [address], [place] [address] PCP - General Family Medicine 12/19/19 documented as of this encounter
--- OUTSIDE RECORDS SUMMARY | 2025-02-14 13:02 | XMS_ITS | Encounter Summary ---
Author Organization [employer] tem Address [id number] [address] [place] [address] Care Team Providers Care Room Service Food Service Attendant Name Role Phone Cisco Blanc Primary Care Provider [phone] Encounter Details Date Type Department Care Team (Late st Contact Info) Description 03/08/2024 Telephone [facility] [address] [place] [phone] Linda Marc CMA Social History Tobacco Use [...] How often do you attend advent or lutheran serv ices? Never 08/01/2022 Active [...] Answer Date Recorded Total Score 16 12/09/2023 [facility] of Occupat ional Health - Occupational Stress [...] Recorded Do you need help finding a [employer] career center and/or a training program? [...] to put a referral in for a Engineering Officer.He states his blood pressure is up and struggles with constipation. * Telephone Encounter - Cisco Blanc DO - 03/08/2024 1:44 PM EDT Okay I sent a referral into the front desk admin in [place]. He is overdue for a wellness visithere. [...] family, patient needs to fllow up with [facility] upon Dc documented as of this encounter Visit Diagnoses Not on filedocumented in this encounter Additional Health Concerns Assessment Noted Time PHQ-9 Depression Total Score: 16 024 8:43 AM EDT documented as of this encounter Care Teams Room Service Food Service Attendant Relationship Specialty Start Date End Date Cisco Blanc G, DO [address] [facility], [place] [address] PCP - General Family Medicine 12/19/19 documented as of this encounter
--- OUTSIDE RECORDS SUMMARY | 2025-02-14 13:02 | XMS_ITS | Encounter Summary ---
Author Organization [employer] tem Address [id number] [address] [place] [address] Care Team Providers Care Topper Press Operator Automatic Name Role Phone Cisco Blanc Primary Care Provider Encounter Details Date Type Department Care Team (Late st Contact Info) Description 02/20/2024 Telephone [facility] [address] [place] [phone] Lidna Marc CMA Social History Tobacco Use Types [...] How often do you attend hindu or jewish serv ices? Never 08/01/2022 Active Member of [...] Answer Date Recorded Total Score 16 12/09/2023 [facility] of Occupat ional Health - Occupational Stress [...] Recorded Do you need help finding a [employer] al career center and/or a training program? [...] family, patient needs to fllow up with [facility] upon Dc documented as of this encounter Visit Diagnoses Not on filedocumented in this encounter Additional Health Concerns Assessment Noted Time PHQ-9 Depression Total Score: 16 024 8:43 AM EDT documented as of this encounter Care Teams Topper Press Operator Automatic Relationship Specialty Start Date End Date Cisco Blanc DO [address], [place] [address] PCP - General Family Medicine 12/19/19 documented as of this encounter
--- OUTSIDE RECORDS SUMMARY | 2025-02-14 13:02 | XMS_ITS | Encounter Summary ---
Author Organization [employer] Address [id number] [address] [place] [address] Care Team Providers Care Road Passenger Firer Name Role Phone Cisco Blanc Primary Care Provider Encounter Details Date Type Department Care Team (Late st Contact Info) Description 04/03/2024 Orders Only [facility] - Family Medicine [address] [place] [address] Ref Prov, [place] [address] Social History Tobacco Use Types Packs/Day Years [...] week 08/01/2022 How often do you attend anabaptist or zoroastrian serv ices? Never 08/01/2022 Active [...] Date Recorded Total Score 21 03/15/2024 [facility] of Occupat [facility] - Occupational Stress Questionnaire Answer [...] Recorded Do you need help finding a [facility] and/or a training [...] patient needs to fllow up with [facility] documented as of this encounter Procedures [...] documented as of this encounter Care Teams Road Passenger Firer Relationship Specialty Start Date End Date Cisco Blanc DO [address] [facility], [place] [address] PCP - General Family Medicine 12/19/19 documented as of this encounter
--- OUTSIDE RECORDS SUMMARY | 2025-02-14 13:02 | XMS_ITS | Encounter Summary ---
Author Organization [employer] Address [id number] [address] [place] [address] Care Team Providers Care Manager Zone Name Role Phone Cisco Blanc Primary Care Provider Encounter Details Date Type Department Care Team (Late st Contact Info) Description 03/13/2024 Orders Only [facility] - Family Medicine [address] [place] [address] Ref Prov, [place] [address] Social History Tobacco Use Types Packs/Day Years [...] How often do you attend restoration or druze serv ices? Never 08/01/2022 Active Member of [...] Answer Date Recorded Total Score 21 03/15/2024 [facility] of Occupat [facility] - Occupational Stress Questionnaire Answer Date [...] Recorded Do you need help finding a [facility] career [facility] and/or a training [...] family, [facility] documented as of this encounter [...] documented as of this encounter Care Teams Manager Zone Relationship Specialty Start Date End Date Cisco Blanc DO [address] [facility], [place] [address] PCP - General Family Medicine 12/19/19 documented as of this encounter
--- OUTSIDE RECORDS SUMMARY | 2025-02-14 13:02 | XMS_ITS | Encounter Summary ---
Author Organization [employer] tem Address [id number] [address] [place] [address] Care Team Providers Care Catalyst Operator Gasoline Name Role Phone Cisco Blanc Primary Care Provider Encounter Details Date Type Department Care Team (Late st Contact Info) Description 03/19/2024 Orders Only [facility] - Family Medicine [address] [place] [phone] Ty Burciaga DO [address] [place] [address] Rectal fissure (Primary Dx) Social History Tobacco [...] How often do you attend congregational or evangelical serv ices? Never 08/01/2022 Active [...] 03/15/2024 [facility] of Occupat ional Health [...] family, patient needs to fllow up with [facility] Dc documented as of this encounter Visit Diagnoses Diagnosis Rectal fissure- Primary Anal fissure documented in this encounter Additional Health Concerns Assessment Noted Time PHQ-9 Depression Total Score: 21 024 4:01 PM EDT documented as of this encounter Care Teams Catalyst Operator Gasoline Relationship Specialty Start Date End Date Cisco Blanc DO [address] [facility], [place] [address] PCP - General Family Medicine 12/19/19 documented as of this encounter
--- NOTE | 2025-02-14 13:11 | PC.NURSE ---
right foot pain, 3,4 and 5th metatarsal area red and painful. pt able to slightly move injured area of foot. ice pack in place
--- NOTE | 2025-02-14 13:15 | XR_ITS ---
The [address] [address] Patient Name: HARLAN ARNOLD MRN: [id number] date: 1970 Sex: M Assigned Patient Location: ER Current Patient Location: ER Accession/Order Number: [id number] Exam Date: 02/14/2025 14:00 Report Date: 02/14/2025 14:01 At the request of: RETA ALAN Procedure: XR foot RT min 3V RIGHT FOOT - 3 views CLINICAL HISTORY: Right foot and ankle pain after fall. COMPARISON: None FINDINGS: A mildly displaced fracture is seen involving the fifth metatarsal. No additional fractures are present. Joint spaces appear maintained without bony erosions. XR/XR foot RT min 3V IMPRESSION: MILDLY DISPLACED FRACTURE FIFTH METACARPAL. Impression dictated by: Jey Lee Jr., DJessaOJessa 02/14/2025 2:01 PM Dictation Location: [place] [address] Electronically authenticated by: [id number] Y Date: 02/14/2025 14:01
--- NOTE | 2025-02-14 13:15 | XR_ITS ---
The [place] [id number] Patient Name: HARLAN ARNOLD MRN: [id number] date: 1970 Sex: M Assigned Patient Location: ER Current Patient Location: ER Accession/Order Number: [id number] Exam Date: 02/14/2025 14:01 Report Date: 02/14/2025 14:02 At the request of: RETA ALAN Procedure: XR ankle RT min 3V RIGHT ANKLE - 3 views CLINICAL HISTORY: fall COMPARISON: None FINDINGS: Mild soft tissue swelling. Ankle mortise appears intact with degenerative change. Mildly displaced fracture involving the fifth metacarpal seen on the lateral view. Plantar spurring. XR/XR ankle RT min 3V IMPRESSION: MILD SOFT TISSUE SWELLING INVOLVING THE RIGHT ANKLE WITHOUT ACUTE BONY PROCESS. MILDLY DISPLACED FRACTURE INVOLVING THE FIFTH METACARPAL. Impression dictated by: Trip Ferris Jr.OJessa 02/14/2025 2:02 PM Dictation Location: [place] Electronically authenticated by: [id number] Y Date: 02/14/2025 14:02
--- NOTE | 2025-02-14 13:16 | ED.LOWEXI1 ---
HPI HPI - Extremity Injury (Lower) General Chief Complaint: Extremity Injury, Lower Stated Complaint: LOWER EXTREMITY PAIN POSSIBLE INJURY Time Seen by Provider: 02/14/25 13:03 Source: patient Mode of arrival: walk-in History of Present Illness HPI Narrative: Patient is a 54-year-old male who presents to the emergency department for evaluation of pain in the right lateral aspect of the foot. He was seen in this emergency department recently for a fall with head injury secondary to alcohol intoxication. He states he injured his right foot several days ago. He denies any new head injury, loss of consciousness, neck or back pain. He reports pain with ambulation. He does not take blood thinners. He has no pain to the knee. Related Data Previous Rx's ?Medication ?Instructions ?Recorded ondansetron 4 mg disintegrating 4 mg PO Q6H PRN nausea and 05/06/24 tablet vomiting #12 tabs dicyclomine 20 mg tablet 20 mg PO QID PRN abdominal pain 09/05/24 #12 tabs hydrocodone 5 mg-acetaminophen 325 1 tab PO Q6H PRN pain 3 days #12 02/14/25 mg tablet tabs Allergies Allergy/AdvReac Type Severity Reaction Status Date / Time No Known Drug Allergies Allergy Verified 09/05/24 15:33 Opioid HPI Opioid Management Most Recent Pain and Opioid Data: Last Pain Scale 8 09/05/24, 16:05 Ur Phencyclidine Scrn, (NEGATIVE) Negative 05/06/24, 15:20 Review of Systems ROS Constitutional Denies: fever or chills Ears, nose, mouth, and throat Denies: throat pain or nasal congestion Cardiovascular Denies: chest pain Respiratory Denies: shortness of breath or cough Gastrointestinal Denies: nausea or vomiting Musculoskeletal Reports: extremity pain and extremity swelling; Denies: back pain or neck pain Integumentary/Breast Denies: rash Neurological Denies: numbness in extremities or weakness in extremities Hematologic/Lymphatic Denies: easy bruising or easy bleeding PFSH PFSH Social History Little interest or pleasure in doing things: not at all Feeling down, depressed, or hopeless: not at all Exam Narrative Exam Narrative: Gen.: Awake, alert, in no distress Head: Normocephalic, atraumatic ENT: Moist mucous membranes, no facial or dental injury, C-spine nontender Respiratory: No respiratory distress Extremities: Tenderness and mild swelling noted to the dorsal lateral aspect of the right foot. Normal flexion extension of the toes. 2+ right DP pulse. Diffuse tenderness of the foot into the right lateral malleolus Psych: Normal mood and affect Neuro: No focal neuro deficit Skin: Warm, dry, intact Constitutional Vital Signs, click to edit/add: Last Vital Signs Temp 97.6 F 02/14/25 13:02 Pulse 100 H 02/14/25 13:02 Resp 18 02/14/25 13:02 BP 146/89 H 02/14/25 13:02 Pulse Ox 98 02/14/25 13:02 O2 Del Method Room Air 02/14/25 13:02 Course Vital Signs Vital signs: Vital Signs Temperature 97.6 F 02/14/25 13:02 Pulse Rate 100 H 02/14/25 13:02 Respiratory Rate 18 02/14/25 13:02 Blood Pressure 146/89 H 02/14/25 13:02 Pulse Oximetry 98 02/14/25 13:02 Oxygen Delivery Method Room Air 02/14/25 13:02 Temperature 97.6 F 02/14/25 13:02 Pulse Rate 100 H 02/14/25 13:02 Respiratory Rate 18 02/14/25 13:02 Blood Pressure 146/89 H 02/14/25 13:02 Pulse Oximetry 98 02/14/25 13:02 Oxygen Delivery Method Room Air 02/14/25 13:02 MDM - Extremity Injury (Lower) Medical Records Attestation: I reviewed the patient's medical records. Discharge Plan Discharge Chief Complaint: Extremity Injury, Lower Clinical Impression: Fracture of fifth metatarsal bone of right foot, Acute pain of right foot, Fall Patient Disposition: Home, Self-Care Time of Disposition Decision: 14:38 Condition: Good Prescriptions / Home Meds: New hydrocodone-acetaminophen 5-325 mg tablet 1 tab PO Q6H PRN (Reason: pain) 3 Days Qty: 12 0RF Rx Instructions: M79.671 No Action dicyclomine 20 mg tablet 20 mg PO QID PRN (Reason: abdominal pain) Qty: 12 0RF ondansetron 4 mg tablet,disintegrating 4 mg PO Q6H PRN (Reason: nausea and vomiting) Qty: 12 0RF Print Language: Estonian Instructions: Foot Fracture in Adults (ED) Referrals: MELY BONILLA [Primary Care Provider, Family Practice] - 1 week Dmitry Edmond DPM [Physician, Podiatry] - As soon as possible
[2025-02-14 14:32] VITALS: BP 148/98; PULSE 90; O2SAT 98
[2025-02-14] MEDS: OXYCODONE HCL/ACETAMINOPHEN 5MG/325MG 1 TAB PO (15:09)
== END 2025-02-14 15:23 | disposition home or self-care (01) ==
PROVIDERS: Emergency Provider Emergency Medicine; PCP Family Medicine
DX: S92.351A Displaced fracture of fifth metatarsal bone, right foot, initial encounter for closed fracture (principal); M79.671 Pain in right foot; W19.XXXA Unspecified fall, initial encounter
CPT/HCPCS: 73610; 73630; 99284

== ENCOUNTER 2025-04-08 09:13 | Outpatient (OUT) | payer OTHER, SELFPAY ==
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
--- NOTE | 2025-04-08 09:14 | XR_ITS ---
[facility] [place] [id number] Patient Name: HARLAN ARNOLD MRN: [id number] date: 1970 Sex: M Assigned Patient Location: [facility] Current Patient Location: [facility] Accession/Order Number: [id number] Exam Date: 04/08/2025 10:53 Report Date: 04/08/2025 10:54 At the request of: DAJUAN STRICKLAND DO Procedure: XR foot RT min 3V RIGHT FOOT - 3 views CLINICAL HISTORY: Fracture Of Fifth Metatarsal Bone Right Foot COMPARISON: 02/14/2025 FINDINGS: Interval postsurgical changes status post ORIF fifth metatarsal fracture. Persistent fracture lucency noted. Hardware is intact. [id number] degenerative changes. Soft tissues unremarkable. XR/XR foot RT min 3V IMPRESSION: ORIF FIFTH METATARSAL FRACTURE WITH PERSISTENT FRACTURE LUCENCY NOTED. Impression dictated by: Erik Cormier M.D. 04/08/2025 10:54 AM Dictation Location: [place] [address] Electronically authenticated by: [id number] Y Date: 04/08/2025 10:54
--- OUTSIDE RECORDS SUMMARY | 2025-04-08 09:15 | XMS_ITS | Encounter Summary ---
Author Organization [facility] Address [id number] [place] [address] Care Team Providers Care Refractory Bricklayer Name Role Phone Cisco Blanc Primary Care Provider Encounter Details Date Type Department Care Team (Late st Contact Info) Description 02/13/2024 Orders Only [facility] Internal Medicine - Family Medicine [address] [place] [phone] Ty Burciaga DO [address] [place] [address] Change in bowel habits (Primary Dx) Social [...] week 08/01/2022 How often do you attend orthodox or sabianism serv ices? Never 08/01/2022 Active Member of [...] Answer Date Recorded Total Score 16 12/09/2023 [facility] of Occupat ional Health - Occupational [...] Recorded Do you need help finding a [facility] career center and/or a training [...] documented as of this encounter Care Teams Refractory Bricklayer Relationship Specialty Start Date End Date Cisco Blanc DO [address] COUNTS INCLUDE [address] BEDS AT [facility], [place] [address] PCP - General Family Medicine 12/19/19 documented as of this encounter
--- OUTSIDE RECORDS SUMMARY | 2025-04-08 09:15 | XMS_ITS | Encounter Summary ---
Author Organization [facility] Address [facility] [place] [address] Care Team Providers Care Social Director Name Role Phone Tyson Fonseca MD Primary Care Provider [phone] Vivian Brady MD Unavailable [phone] Source Comments In the event this information is protected by the Federal Confidentiality of Alcohol and Drug AbusePatient Records regulations: The Federal rules restrict any use of the information to criminally investigate or prosecute any alcohol or drug abuse patient.[facility] Reason for Referral * Consult, Test, Treat (Routine) - Authorized Specialty Diagnoses / Procedures Referred By Contac t Referred To Contact Diagnoses Rectal spasm Constipation, unspecified constipation type Pelvic floor dysfunction Anxiety Chronic abdominal pain Chronic rectal pain Procedures OFFICE/OUTPATIENT [facility] 60 MINUTES Ldyia Drake PA-C [address] [place] [address] Phone: tel: fax: Nat Enriquez PSYD [address] [place] [address] Phone: tel: fax: Referral ID Status Reason Start Date Expiration Date Visits Requested Visits Authorized [id number] Authorized PCP Requested Referral 04/03/2025 04/03/2026 1 1 Scheduling Instructions Medical (to be scheduled same day as provider or day of patient preference) Motility/NeuroGI * Consult, Test, Treat (Routine) - Authorized Specialty Diagnoses / Procedures Referred By Contkm t Referred To Contact Pain Management Diagnoses Rectal spasm Chronic abdominal pain Chronic rectal pain Procedures OFFICE/OUTPATIENT [facility] 60 MINUTES Lydia Drake PA-C [address] [place] [address] Phone: tel: fax: Referral ID Status Reason Start Date Expiration Date Visits Requested Visits Authorized [id number] Authorized PCP Requested Referral 04/03/2025 04/03/2026 1 1 Scheduling Instructions Clinical reason(s) for this consult to Pain Management: Evaluate and treat. Perform appropriate evaluation, testing, procedures, and optimize non-opioid medical management. (includes evaluation for advanced interventional therapies such as Neuromodulation (spinal cord stimulation or DRG) and intrathecal drug delivery) Our schedulers will reach out to you to schedule your appointment. If you need to contact them, they can be reached at [phone]. For Niurka appointments: [phone]. For Shayna appointments: [facility] Appointment Call Center - [phone] Option 2. For [facility] appointments: [phone] Encounter Details Date Type Department Care Team (Late st Contact Info) Description 04/03/2025 Patient Msg Colorectal Surgery [address] [address] Lydia Drake PA-C [address] [place] [address] Follow up from virtual visit Social History Tobacco Use Types Packs/Day Years Used Date Smoking Tobacco: Never Assessed Area Deprivation Index Answer Date Juan Carlos rded National Score (1-100), lower number is lower ri 93 02/28/2025 State Score (1-10), lower number is lower risk 9 02/28/2025 Data from: https://www.neighborhoodatlas.medicine.[facility].edu/. Last address used for calculation [address] 02/28/2025 Sex and Gender Information Value Date Recorded Sex Assigned at Male 03/07/2025 4:03 PM EDT Legal Sex Male 1:48 PM EDT Gender Identity Male 03/07/2025 4:03 PM EDT Sexual Orientation Straight 03/07/2025 4: 03 PM EDT documented as of this encounter Plan of Treatment Scheduled Referrals Name Type Priority Associated Diagnoses Orde r Schedule CONSULT TO PAIN MGT Referral Routine Rectal spasm Chronic abdominal pain Chronic rectal pain 1 Occurrences starting 04/03/2025 until 04/03/2026 CONSULT TO [facility] Referral Routine Rectal spasm Constipation, unspecified constipation type Pelvic floor dysfunction Anxiety Chronic abdominal pain Chronic rectal pain 1 Occurrences starting 04/03/2025 until 04/03/2026 documented as of this encounter Visit Diagnoses Diagnosis Rectal spasm- Primary Anal spasm Constipation, unspecified constipation type Pelvic floor dysfunction Pelvic muscle wasting Anxiety Anxiety state, unspecified Chronic abdominal pain Abdominal pain, unspecified site Chronic rectal pain Anal or rectal pain documented in this encounter Care Teams Social Director Relationship Specialty Start Date End Date Tyson Fonseca MD PCP - General Family Medicine 11/11/15 Vviian Brady MD [address] [place] [address] Gastroenterology 01/16/25 documented as of this encounter
--- OUTSIDE RECORDS SUMMARY | 2025-04-08 09:15 | XMS_ITS | Encounter Summary ---
Author Organization [facility] Address [id number] [place] [address] Care Team Providers Care Director Sales And Marketing Name Role Phone Cisco Blanc Primary Care Provider Encounter Details Date Type Department Care Team (Late st Contact Info) Description 02/14/20[facility] [address] [place] [phone] Linda Marc CMA Social History Tobacco Use [...] week 08/01/2022 How often do you attend quaker or taoist serv ices? Never 08/01/2022 Active Member of [...] Answer Date Recorded Total Score 16 12/09/2023 [facility] [place] of Occupat ional Health - Occupational Stress [...] Recorded Do you need help finding a [employer] al career center and/or a training program? [...] him know that Dr Burciaga sent in Arachno to his pharmacy also Isent him a [...] family, patient needs to fllow up with [facility] documented as of this encounter Visit Diagnoses Not on filedocumented in this encounter Additional Health Concerns Assessment Noted Time PHQ-9 Depression Total Score: 16 024 8:43 AM EDT documented as of this encounter Care Teams Director Sales And Marketing Relationship Specialty Start Date End Date Cisco Blanc DO [address] [place], [place] [address] PCP - General Family Medicine 12/19/19 documented as of this encounter
--- OUTSIDE RECORDS SUMMARY | 2025-04-08 09:15 | XMS_ITS | Encounter Summary ---
Author Organization [facility] Address [id number] [place] [address] Care Team Providers Care Instructional Design Specialist Name Role Phone Cisco Blanc Primary Care Provider [phone] Encounter Details Date Type Department Care Team (Late st Contact Info) Description 02/14/2024 Orders Only [facility] Internal Medicine - Family Medicine [address] [place] [phone] Ty Burciaga DO [address] [place] [address] Change in bowel habits (Primary Dx) Social [...] week 08/01/2022 How often do you attend jew or restoration serv ices? Never 08/01/2022 Active Member of [...] Answer Date Recorded Total Score 16 12/09/2023 [facility] of Occupat ional Health - [...] family, patient needs to [facility] with [facility] documented as of this encounter Visit Diagnoses Diagnosis Change in bowel habits- Primary Other symptoms involving digestive system documented in this encounter Additional Health Concerns Assessment Noted Time PHQ-9 Depression Total Score: 16 024 8:43 AM EDT documented as of this encounter Care Teams Instructional Design Specialist Relationship Specialty Start Date End Date Cisco Blanc DO [address] [facility] [place] [address] PCP - General Family Medicine 12/19/19 documented as of this encounter
--- OUTSIDE RECORDS SUMMARY | 2025-04-08 09:15 | XMS_ITS | Encounter Summary ---
Author Organization [facility] Address [id number] [place] [address] Care Team Providers Care Alpine Guide Name Role Phone Cisco Blanc Primary Care Provider Encounter Details Date Type Department Care Team (Late st Contact Info) Description 02/13/2024 [facility] [address] [place] [phone] Linda Marc CMA Social History Tobacco Use [...] week 08/01/2022 How often do you attend jehovah's witness or pentecostal serv ices? Never 08/01/2022 Active [...] Recorded Total Score 16 12/09/2023 [facility] [place] of Occupat ional Health - Occupational Stress [...] Recorded Do you need help finding a [employer] al career center and/or a training program? [...] documented as of this encounter Care Teams Alpine Guide Relationship Specialty Start Date End Date Cisco Blanc DO [address] [place], [place] [address] PCP - General Family Medicine 12/19/19 documented as of this encounter
--- OUTSIDE RECORDS SUMMARY | 2025-04-08 09:15 | XMS_ITS | Encounter Summary ---
Demographics Address [address] [facility] [place] [address] Home Phone Mobile Phone Email Address Email Address Preferred Language ENG Marital Status Single Scientologist Affiliation Unknown Race White Ethnic Group or Author Organization [facility] Address [address] [place] [address] Care Team Providers Care Tattoo And Body Artist Name Role Phone Tyson Fonseca MD Primary Care Provider [phone] Vivian Brady MD Unavailable [phone] Source Comments In the event this information is protected by the Federal Confidentiality of Alcohol and Drug AbusePatient Records regulations: The Federal rules restrict any use of the information to criminally investigate or prosecute any alcohol or drug abuse patient.[facility] Reason for Visit * Reason Onset Date Comments Refill Request 03/26/2025 Encounter Details Date Type Department Care Team (Late st Contact Info) Description 03/26/2025 Refill Colorectal Surgery [address] [address] Lydia Drake PA-C [address] [place] [address] Refill Request Social History Tobacco Use Types Packs/Day Years Used Date Smoking Tobacco: Never Assessed Area Deprivation Index Answer Date Juan Carlos rded National Score (1-100), lower number is lower ri sk 93 02/28/2025 State Score (1-10), lower number is lower risk 9 02/28/2025 Data from: https://www.neighborhoodatlas.[facility].edu/. Last address used for calculation [address] 02/28/2025 Sex and Gender Information Value Date Recorded Sex Assigned at Male 03/07/2025 4:03 PM EDT Legal Sex Male 1:48 PM EDT Gender Identity Male 03/07/2025 4:03 PM EDT Sexual Orientation Straight 03/07/2025 4: 03 PM EDT documented as of this encounter Plan of Treatment Not on file documented as of this encounter Visit Diagnoses Diagnosis Pelvic floor dysfunction Pelvic muscle wasting Rectal spasm Anal spasm Constipation, unspecified constipation type documented in this encounter Care Teams Tattoo And Body Artist Relationship Specialty Start Date End Date Tyson Fonseca MD PCP - General Family Medicine 11/11/15 Vivian Brady MD [address] [place] [address] Gastroenterology 01/16/25 documented as of this encounter
--- OUTSIDE RECORDS SUMMARY | 2025-04-08 09:15 | XMS_ITS | Encounter Summary ---
Demographics Address [address] [facility] [place] [address] Home Phone Mobile Phone Email Address Email Address Preferred Language ENG Marital Status Single Evangelical Affiliation Unknown Race White Ethnic Group or Author Organization [facility] Address [address] [place] [address] Care Team Providers Care Colorist Formulator Name Role Phone Tyson Fonseca MD Primary Care Provider [phone] Vivian Brady MD Unavailable [phone] Source Comments In the event this information is protected by the Federal Confidentiality of Alcohol and Drug AbusePatient Records regulations: The Federal rules restrict any use of the information to criminally investigate or prosecute any alcohol or drug abuse patient.[facility] Encounter Details Date Type Department Care Team (Late st Contact Info) Description 02/20/2025 Patient Msg Colorectal Surgery [address] [address] Violette Maurer APRN.[facility] [address] [place] [address]. [place] [phone] anorectal manometry ordered. Social History Tobacco Use Types Packs/Day Years [...] on filedocumented in this encounter Care Teams Colorist Formulator Relationship Specialty Start Date End Date Tyson Fonseca MD PCP - General Family Medicine 11/11/15 Vivian Brady MD [address] [place] [address] Gastroenterology 01/16/25 documented as of this encounter
--- OUTSIDE RECORDS SUMMARY | 2025-04-08 09:15 | XMS_ITS | Clinical Summary ---
Author Organization [facility] Address [address] [place] [address], [address] [place] [address] Care Team Providers Care Landscape Architect Name Role Phone Tyson Fonseca MD Primary [...] of Treatment Not on file Care Teams Landscape Architect Relationship Specialty Start Date End Date Tyson Fonseca MD PCP - General 07/09/16
--- OUTSIDE RECORDS SUMMARY | 2025-04-08 09:15 | XMS_ITS | Clinical Summary ---
Author Organization [facility] Address [address] [place] [address] Care Team Providers Care Print Finishing Worker Name Role Phone Tyson Fonseca MD Primary Care Provider Vivian Brady MD Unavailable [phone] Allergies No known active allergies Medications ALPRAZolam (XANAX) 2 mg tablet Take 1 mg by mouth. 025 Active amLODIPine (NORVASC) 5 mg tablet 1 tablet Oral Once a day for 30 days 024 Active anastrozole (ARIMIDEX) 1 mg tablet Take by mouth. 024 Active cloNIDine HCl (CATAPRES) 0.1 mg tablet Take 0.1 mg by mouth. 025 Active HYDROcodone-julio taminophen (NORCO) 5-325 mg per tablet TAKE 1 TABLET BY MOUTH TWICE DAILY FOR PAIN FOR 15 DAYS Active Pramoxine-Combs cortisone (ANALPRAM-HC) 1-1 % rectal cream 1 application by RECTAL route. Active linaCLOtide (LINZESS) 72 mcg capsule Take 72 mcg by mouth every 24 hours. 024 Active metoprolol tartrate, short acting, (LOPRESSOR) 25 mg tablet take 1 tablet by mouth twice a day Oral for 30 Days Active petrolatum, white 100 % gel Active plecanatide (TRULANCE) 3 mg tablet Take 3 mg by mouth. 025 Active polyethylene glycol 3350 17 gram/dose powder Take 17 g by mouth. 025 Active testosterone cypionate (DEPO-TESTOSTER ONE) 200 mg/mL injection 1 mL. 024 Active BENEFIBER SUGAR FREE, DEXTRIN, 3 gram/4 gram powd Take 3 g by mouth. 025 Active baclofen suppository 10 mg (CPD)Indication s:Pelvic floor dysfunction,Rec aretha spasm,Constipat ion, unspecified constipation type 1 suppository by RECTAL route two times a day as needed (rectal pain). Unwrap and insert as directed. 60 suppository 025 2024 Active baclofen suppository 10 mg (CPD)Indication s:Pelvic floor dysfunction,Rec aretha spasm,Constipat ion, unspecified constipation type 1 suppository by RECTAL route two times a day as needed (rectal pain). Unwrap and insert as directed. 60 suppository 025 2024 Discontinued Encounters Date Type Department Care Team Description 04/03/2025 Patient Msg Colorectal Surgery 2048 [place] [address] Lydia Drake PA-C Follow up from virtual visit 04/03/2025 Patient Update Colorectal Surgery [address] [place] [phone] Lydia Drake PA-C Pelvic Floor Conference 04/02/2025 11:30 AM EDT [facility] Colorectal Surgery 2048 [place] [address] Lydia Drake PA-C Constipation, unspecified constipation type (Primary Dx); Rectal spasm; Pelvic floor dysfunction; Anxiety; Distressed about housing issues; Orthostatic dizziness 03/26/2025 Refill Colorectal Surgery 2048 [place] [address] Lydia Drake PA-C Refill Request 03/21/2025 Travel 03/08/2025 Abstract Colorectal Surgery [address] [place] [phone] Suma Navarrete DO 03/07/2025 Telephone Colorectal Surgery [address] [place] [phone] Lydia Drake PA-C Patient Update 03/01/2025 Patient Msg Colorectal Surgery [address] [address] Lydia Drake PA-C Follow up from visit 02/28/2025 1:00 PM EDT Office Visit Colorectal Surgery [address] [address] Lydia Drake PA-C Pelvic floor dysfunction (Primary Dx); Rectal spasm; Constipation, unspecified constipation type 02/28/2025 12:30 PM EDT Nurse Visit Colorectal Surgery [address] [address] Sahil Bergeron RN Pelvic floor dysfunction 02/20/2025 Patient [facility] Colorectal Surgery [address] [place] [phone] Violette Maurer APRN.[employer] anorectal manometry ordered. 02/20/2025 Orders Only Colorectal Surgery [address] [place] [phone] Vioeltte Maurer APRN.[employer] Pelvic floor dysfunction (Primary Dx) 02/15/2025 Patient [facility] General Surgery [address] [place] [phone] Provider, [facility] Follow up from phone call 02/15/2025 Travel 02/11/2025 Telephone Colorectal Surgery [address] [place], [place] [phone] Ashley Hayward MD Appointment (Left vm we received referral for botox injections) 01/16/2025 Transcribe Orders Referring Physician [address] [place] [address] Vivian Brady MD Constipation by outlet dysfunction (Primary Dx); Stress-related physiological response affecting medical condition from Last 3 Months Social History Tobacco Use Types Packs/Day Years Used Date Smoking Tobacco: Never Assessed Area Deprivation Index Answer Date Juan Carlos rded National Score (1-100), lower number is lower ri sk 93 02/28/2025 State Score (1-10), lower number is lower risk 9 02/28/2025 Data from: https://www.neighborhoodatlas.medicine.[facility].edu/. Last address used for calculation [address] 02/28/2025 Sex and Gender Information Value Date Recorded Sex Assigned at Male 03/07/2025 4:03 PM EDT Legal Sex Male 1:48 PM EDT Gender Identity Male 03/07/2025 4:03 PM EDT Sexual Orientation Straight 03/07/2025 4: 03 PM EDT Last Filed Vital Signs Vital Sign Reading Time Taken Comments Blood Pressure 141/93 02/28/2025 12:24 PM EDT Pulse 76 02/28/2025 12:24 PM EDT Temperature 36.1 C (97 F) 02/28/2025 12:24 PM EDT Respiratory Rate - - Oxygen Saturation 97% 02/28/2025 12:24 PM EDT Inhaled Oxygen Concentration - - Weight 90.7 kg (200 lb) 02/28/2025 12:24 PM EDT Height 175.3 cm (5' 9 ) 02/28/2025 12:24 PM EDT Body Mass Index 29.53 02/28/2025 12:24 PM EDT Plan of Treatment Health Maintenance Due Date Last Done Comments Anxiety Screening 1986 Depression Screening 1986 HIV Screening 1986 Hepatitis B Vaccine (1 of 3 - 19+ 3-dose series) 1987 Pneumococcal Vaccine: 50+ (1 of 2 - PCV) 1987 Shingrix Vaccine (1 of 2) 1987 CT Colonography 2013 Cologuard (FIT-DNA) 2013 Fecal Occult Blood 2013 Sigmoidoscopy 2013 DTaP,Tdap,Td Vaccine (2 - Td or Tdap) 10/28/2023 10/27/2013 Colonoscopy 02/16/2025 02/17/2024 Colorectal Cancer Screening 02/16/2025 Influenza Vaccine (#1) 2025 , 04/06/2020, 06/07/2019 Diabetes Screening 12/11/2027 12/10/2024, 0 09/11/2024, 05/15/2024, Additional history exists Lipid Screening 12/10/2029 12/10/2024, 07/22/2022 Prostate Cancer Screening Discussion 12/10/2029 12/10/2024 Hepatitis C Screening Completed 09/26/2020 , 12/19/2019, 12/19/2019, Additional history exists Procedures Procedure Name Priority Date/Time Associated Diagnosis Comments ADULT [place] ANORECTAL MANOMETRY Routine 02/28/2025 Pelvic floor dysfunction PT ED PATIENT INFORMATION 02/12/2025 from Last 3 Months Results * ADULT [place] ANORECTAL MANOMETRY (02/28/2025) Anatomical Region Laterality Modality Other Narrative 02/28/2025 PATIENT NAME: Harlan Arnold PATIENT IDENTITY VERIFICATION COMPLETED USING TWO (2) IDENTIFIERS: Name and Date of confirmed by patient verbally. Referred by: Violette Maurer APRN.CNP Reason for testing: constipation Ileoanal pouch: No SENSITIVE EXAMINATION CONSENT: The sensitive examination was discussed with the Patient or Patient's Authorized Technician Support Engineer. As applicable, any other physician, advance practice provider, medical student, or other health professional student that will be observing or involved in the sensitive examination for educational or training purposes was discussed with the Patient or Authorized Technician Support Engineer. The Patient or Authorized Technician Support Engineer has agreed to proceed with the sensitive examination. Tree Feller Operator offered:Patient accepts, visit chaperoned by Antonieta PAYNE,RN Anorectal: Perianal skin is intact. No erythema, induration or excoriation. No fissure, fistula or external hemorrhoids. Digital Rectal Exam: Anus: closed Resting tone: NORMAL Squeeze tone: WEAK Valsalva: pelvic floor relaxation is Normal. Rectal prolapse present: No Any noted rectal mass/lesion/ulcer: N/A Anorectal Manometry Testing: Disorders of rectoanal inhibitory reflex: A recto-anal inhibitory reflex (RAIR) was present. Rectoanal areflexia : No Disorders of anal tone and contractility: Mean anal resting pressure: 71 mmHg (Female normal 33-101, Male normal 38-114) Squeeze pressure increase: 13 mmHg (Female normal >45, Male normal >61) Anal Tone Normal Hypo-Contractility Disorders of Rectoanal co-ordination: Balloon expulsion: no Abnormal expulsion with normal manometric pattern of rectal coordination Disorders of rectal sensation : Sensation Volume First sensation value 15 mL / Female Normal Range: 10-105 mL, Male Normal Range: 10-110 mL. Defecatory desire volume 66 mL / Female Normal Range: 30-200 mL, Male Normal Range: 40-190 mL. Maximum tolerated volume 105 mL / Female Normal Range: 65-285 mL, Male Normal Range 80-355 mL. Normal sensitivity Electronically signed by: Sahil APYNE, RN Department of Colorectal Surgery Procedural RN Per CC protocol, the patient is instructed to self-administer the enema before the manometry procedure. Results of the study may be affected if stool is present in the rectum at the time of the procedure. Clinical correlation is necessary if every manometry test. Please see colorectal pelvic floor consult note for recommended treatment plan. I have reviewed, verified, and confirmed the results of anorectal manometry, rectal sensation, tone and compliance testing and EMG testing. I agree with the impression as written above. Aparna Guerra MD Colon & Rectal Surgery us Violette Maurer APRN.[employer] DIGESTIVE DISEASE Final Result * PT ED PATIENT INFORMATION (02/12/2025) 02/12/2025 Narrative NILO - 02/13/2025 Provider HERMAN barker patient HARLAN ARNOLD started their Nilo on 02-13-2025 and completed it on 02-13-2025 Nilo program: PATIENT SAFETY INSTRUCTIONS FOR HEALTHCARE SETTINGS Jey Kapadia MD NILO Final Result NILO from Last 3 Months Insurance * Guarantor: Harlan Arnold Account Type Relation to Patient Date of Phone Billing Address Personal/Family Self 1970 [address] [place], [place] [id number] [place] [address] Care Teams Print Finishing Worker Relationship Specialty Start Date End Date Tyson Fonseca MD PCP - General Family Medicine 11/11/15 Vivian Brady MD [address] [place] [phone] Gastroenterology 01/16/25
--- OUTSIDE RECORDS SUMMARY | 2025-04-08 09:15 | XMS_ITS | Clinical Summary ---
Author Organization [facility] Address [id number] [place] [address] Care Team Providers Care Slip Cover Sewer Name Role Phone Carlos AlbertoCisco tang Primary Care Provider Allergies No known active allergies Medications testosterone cypionate (DEPOTESTOTERONE CYPIONATE) 100 mg/mL injection Inject 1 mL (100 mg total) into the appropriate muscle. Active anastrozole (ARIMIDEX) 1 mg chemo tablet Take by mouth daily Active metoprolol tartrate (LOPRESSOR) 25 mg tablet take 1 tablet by mouth twice a day Oral for 30 Days Active ALPRAZolam (XANAX) 2 mg tabletIndication s:Anxiety Take 0.5 tablets (1 mg total) by mouth nightly as needed for anxiety. 12/11/19 25 Active dicyclomine (BENTYL) 10 mg capsuleIndicatio ns:Irritable bowel syndrome with both constipation and diarrhea Take 1 capsule (10 mg total) by mouth every 6 (six) hours as needed (cramping). 56 capsule 12/18/19 25 Active hydrocortisone-p ramoxine (ANALPRAM-HC) 1-1 % rectal cream Insert 1 Application into the rectum in the morning and 1 Application before bedtime. 30 g 12/21/19 25 Active cloNIDine (CATAPRES) 0.1 mg tablet Take 1 tablet (0.1 mg total) by mouth in the morning and 1 tablet (0.1 mg total) before bedtime. 60 tablet 1 03/27/20 25 Active polyethylene glycol (MIRALAX) 17 gram/dose powder Take 17 g by mouth in the morning. 510 g 5 03/27/20 25 Active wheat dextrin (BENEFIBER SUGAR FREE, DEXTRIN,) 3 gram/4 gram powder Take 3 g by mouth in the morning. 152 g 5 03/27/20 25 Active cloNIDine (CATAPRES) 0.1 mg tablet Take 1 tablet (0.1 mg total) by mouth in the morning and 1 tablet (0.1 mg total) before bedtime. 60 tablet 1 01/29/20 25 025 Discontin ued(Reord er) polyethylene glycol (MIRALAX) 17 gram/dose powder Take 17 g by mouth in the morning. 510 g 5 01/29/20 25 025 Discontin ued(Reord er) wheat dextrin (BENEFIBER SUGAR FREE, DEXTRIN,) 3 gram/4 gram powder Take 3 g by mouth in the morning. 152 g 5 02/07/20 25 025 Discontin ued(Reord er) Active Problems Problem Noted Date Diagnosed Date [...] Encounters Date Type Department Care Team Description 03/22/2025 Refill [facility] Internal [facility] - Family Medicine [address] [place] [address] Cisco Blanc, DO Anxiety 02/06/2025 Refill [facility] - Family Medicine [address] [place] [address] Cisco Blanc, DO 01/28/2025 Refill [facility] - Family Medicine [address] [place] [address] Cisco Blanc, DO 01/26/2025 Refill [facility] - Family Medicine [address] [place] [address] Cisco Blanc, DO from Last 3 Months Immunizations Immunization Administration [...] Recorded In the past 12 months has [employer], gas, oil, or water company threatened to [...] How often do you attend sikh or confucianist serv ices? Never 08/01/2022 Active [...] Answer Date Recorded Total Score 21 12/10/2024 [facility]at [facility] - [...] to fllow up with [facility] Medical Devices Not on file Procedures Procedure Name Priority Date/Time Associated Diagnosis Comments PROVATION COLONOSCOPY Routine 02/17/2024 1:59 PM EDT from Last 3 Months or Most Recently Relevant to Health Maintenance Results * Colonoscopy Report (02/17/2024 1:59 PM EDT) Narrative SYSTEMGENERATED, DOCUMENTATION - 02/17/2024 1:59 PM EDT This order has been auto-finalized for image and report archival in PACs. *For full report details, please reach out to your physician. This image is visible to you in MyChart.* Ty Burciaga DO IMG OR IMG ORDERABLES Final Resu lt from Last 3 Months or Most Recently Relevant to Health Maintenance Insurance * Guarantor: Chai Russell Account Type Relation to Patient Date of Phone Billing Address Personal/Family Self 1970 [address] [place] [address] [employer] * Guarantor: [id number] Account Type Relation to Patient Date of [...] 1:54 PM 01/17/2018 3:11 PM Care Teams Slip Cover Sewer Relationship Specialty Start Date End Date Cisco Blanc DO [address], [place] [address] PCP - General Family Medicine 12/19/19
--- OUTSIDE RECORDS SUMMARY | 2025-04-08 09:15 | XMS_ITS | Encounter Summary ---
Author Organization [employer] [facility] Address [id number] [place] [address] Care Team Providers Care Coil Inspector Name Role Phone Cisco Blanc Primary Care Provider Encounter Details Date Type Department Care Team (Late st Contact Info) Description 03/30/2023 Orders Only [facility] - Family Medicine [address] [place] [address] Ref Prov, [place] [address] Social History Tobacco Use Types Packs/Day Years [...] How often do you attend orthodox or yazdanism serv ices? Never 08/01/2022 Active [...] Answer Date Recorded Total Score 0 02/17/2023 [facility]at [facility] - Occupational [...] to fllow up with [facility] documented as of this encounter Visit Diagnoses Not on filedocumented in this encounter Additional Health Concerns Assessment Noted Time PHQ-9 Depression Total Score: 0 02/18/20 23 3:23 PM EDT documented as of this encounter Care Teams Coil Inspector Relationship Specialty Start Date End Date Cisco Blanc DO [address], [place] [address] PCP - General Family Medicine 12/19/19 documented as of this encounter
--- OUTSIDE RECORDS SUMMARY | 2025-04-08 09:15 | XMS_ITS | Encounter Summary ---
Author Organization [facility] [facility] Address [id number] [place] [address] Care Team Providers Care Supervisor Assembly And Packing Name Role Phone Cisco Blanc Primary Care Provider [phone] Encounter Details Date Type Department Care Team (Late st Contact Info) Description 02/06/2024 [facility] [address] [place] [id number] Linda Marc CMA Social History Tobacco Use [...] How often do you attend hinduism or cheondoism serv ices? Never 08/01/2022 Active Member of [...] Answer Date Recorded Total Score 16 12/09/2023 [facility] Occupat ional Health - Occupational Stress [...] Recorded Do you need help finding a [employer] career center and/or a training program? [...] would like the SUTAB[facility] his pharmacy is [facility] in [place]. He is a Dr Blanc pt. Change [...] [facility] documented as of this encounter Visit Diagnoses Not on filedocumented in this encounter Additional Health Concerns Assessment Noted Time PHQ-9 Depression Total Score: 16 024 8:43 AM EDT documented as of this encounter Care Teams Supervisor Assembly And Packing Relationship Specialty Start Date End Date Cisco Blanc DO [address], [place] [address] PCP - General Family Medicine 12/19/19 documented as of this encounter
--- OUTSIDE RECORDS SUMMARY | 2025-04-08 09:15 | XMS_ITS | Encounter Summary ---
Demographics Address [address] [facility] [place] [address] Home Phone Mobile Phone Email Address Email Address Preferred Language ENG Marital Status Single Evangelical Affiliation Unknown Race White Ethnic Group or Author Organization [facility] Address [address] [place] [address] Care Team Providers Care Ammonia Still Operator Name Role Phone Tyson Fonseca MD Primary Care Provider [phone] Vivian Brady MD Unavailable [phone] Source Comments In the event this information is protected by the Federal Confidentiality of Alcohol and Drug AbusePatient Records regulations: The Federal rules restrict any use of the information to criminally investigate or prosecute any alcohol or drug abuse patient.[facility] Encounter Details Date Type Department Care Team (Late st Contact Info) Description 02/15/2025 Patient Msg General Surgery [address] [place] [phone] Provider, Ccwaqar Follow up from phone call Social History Tobacco Use Types Packs/Day Years [...] on filedocumented in this encounter Care Teams Ammonia Still Operator Relationship Specialty Start Date End Date Tyson Fonseca MD PCP - General Family Medicine 11/11/15 Vivian Brady MD [address] [place] [address] Gastroenterology 01/16/25 documented as of this encounter
--- OUTSIDE RECORDS SUMMARY | 2025-04-08 09:15 | XMS_ITS | Encounter Summary ---
Demographics Address [address] [place] [address] Home Phone Mobile Phone Email Address Email Address Preferred Language ENG Marital Status Single Quaker Affiliation Unknown Race White Ethnic Group or Author Organization [facility] Address [address] [place] [address] Care Team Providers Care Mechanical Design Technician Name Role Phone Tyson Fonseca MD Primary Care Provider [phone] Vivian Brady MD Unavailable [phone] Source Comments In the event this information is protected by the Federal Confidentiality of Alcohol and Drug AbusePatient Records regulations: The Federal rules restrict any use of the information to criminally investigate or prosecute any alcohol or drug abuse patient.[facility] Reason for Visit * Reason Comments Pelvic Floor Conference Encounter Details Date Type Department Care Team (Late st Contact Info) Description 04/03/2025 Patient Update Colorectal Surgery [address] [address] Lydia Drake PA-C [address] [place] [address] Pelvic Floor Conference Social History Tobacco Use Types Packs/Day Years Used Date Smoking Tobacco: Never Assessed Area Deprivation Index Answer Date Juan Carlos rded National Score (1-100), lower number is lower ri sk 93 02/28/2025 State Score (1-10), lower number is lower risk 9 02/28/2025 Data from: https://www.neighborhoodatlas.[facility]/. Last address used for calculation [address] 02/28/2025 Sex and Gender Information Value Date Recorded Sex Assigned at Male 03/07/2025 4:03 PM EDT Legal Sex Male 1:48 PM EDT Gender Identity Male 03/07/2025 4:03 PM EDT Sexual Orientation Straight 03/07/2025 4: 03 PM EDT documented as of this encounter Progress Notes * Lydia Drake PA-C - 04/03/2025 8:29 AM EDT Pelvic Floor Multidisciplinary Conference Presentation Date of conference: April 03, 2025. Presenter/specialty: SHERRI Drake PA-C History of present illness: Chai Russell is a 54 year old male with a 2 year history of constipation, difficulty with defecation and rectal/abdominal pain. He also has a history of anxiety and 15 year benzodiazapine use. Referral to [facility] for Botox consideration. Testing reviewed: Yes Previous pelvic floor operations:n/a Disciplines present: Colorectal Surgery, Urogynecology Discussion/recommendations: - no Botox at this moment, will likely make him incontinent given weak squeeze - needs to go to [facility] - Needs to follow up with GI - reiterate Baclofen suppository usage given incorrect use previously - GI psychology - pain management referral for chronic abdominal and rectal pain - follow up with PCP for dizziness/blurriness Anticipated surgical procedure: none Lydia Drake PA-C documented in this encounter Plan of Treatment Not on file documented as of this encounter Visit Diagnoses Not on filedocumented in this encounter Care Teams Mechanical Design Technician Relationship Specialty Start Date End Date Tyson Fonseca MD PCP - General Family Medicine 11/11/15 Vivian Brady MD [address] [place] [address] Gastroenterology 01/16/25 documented as of this encounter
--- OUTSIDE RECORDS SUMMARY | 2025-04-08 09:15 | XMS_ITS | Encounter Summary ---
Author Organization [employer] Address [id number] [address] [place] [address] Care Team Providers Care Parts Counter Associate Name Role Phone Cisco Blanc DO Primary Care Provider + [phone] Reason for Visit * Reason Onset Date Comments Med Refill 03/22/2025 Encounter Details Date Type Department Care Team (Late st Contact Info) Description 03/22/2025 Refill [facility] - Family Medicine [address] [place] [address] Cisco Blanc DO [address], [facility] [address] Anxiety Social History Tobacco Use Types Packs/Day Years Used Date Smoking Tobacco: Former Cigarettes 1 34 1 09/23/1984 - 12/20/2018 Passive Smoke Exposure: Past Smokeless Tobacco: Never Comments:vape, today Alcohol Use Standard Drinks/Week Comments Yes 0 (1 standard drink = 0.6 oz pur e alcohol) Occasional C Utilities Answer Date Recorded In the past 12 months has [employer] electric, gas, oil, or water company threatened [...] How often do you attend episcopalian or bahai serv ices? Never 08/01/2022 Active [...] Answer Date Recorded Total Score 21 12/10/2024 [facility] of Occupat ional Health - Occupational [...] Recorded Do you need help finding a [facility] career center and/or a training [...] family, patient needs to fllow up with [facility] documented as of this encounter Visit Diagnoses Diagnosis Anxiety Anxiety state, unspecified documented in this encounter Additional Health Concerns Assessment Noted Time PHQ-9 Depression Total Score: 21 025 1:04 PM EDT documented as of this encounter Care Teams Parts Counter Associate Relationship Specialty Start Date End Date Cisco Blanc DO [address] [facility], [facility] [address] PCP - General Family Medicine 12/19/19 documented as of this encounter
--- OUTSIDE RECORDS SUMMARY | 2025-04-08 09:15 | XMS_ITS | Encounter Summary ---
Demographics Address [address] [facility] [place] [address] Home Phone Mobile Phone Email Address Email Address Preferred Language ENG Marital Status Single Anabaptist Affiliation Unknown Race White Ethnic Group or Author Organization [facility] Address [facility] [place] [address] Care Team Providers Care Apron Man Name Role Phone Tyson Fonseca MD Primary Care Provider [phone] Vivian Brady MD Unavailable [phone] Source Comments In the event this information is protected by the Federal Confidentiality of Alcohol and Drug AbusePatient Records regulations: The Federal rules restrict any use of the information to criminally investigate or prosecute any alcohol or drug abuse patient.[facility] Encounter Details Date Type Department Care Team (Late st Contact Info) Description 03/08/2025 Abstract Colorectal Surgery [address] [address] Suma Navarrete DO [address] [place] [address] Social History Tobacco Use Types Packs/Day Years Used Date Smoking Tobacco: Never Assessed Area Deprivation Index Answer Date Juan Carlos rded National Score (1-100), lower number is lower ri sk 93 02/28/2025 State Score (1-10), lower number is lower risk 9 02/28/2025 Data from: https://www.neighborhoodatlas.medicine.[facility].edu/. Last address used for calculation [address] [...] on filedocumented in this encounter Care Teams Apron Man Relationship Specialty Start Date End Date Tyson Fonseca MD PCP - General Family Medicine 11/11/15 Vivian Brady MD [address] [place] [address] Gastroenterology 01/16/25 documented as of this encounter
--- OUTSIDE RECORDS SUMMARY | 2025-04-08 09:15 | XMS_ITS | Encounter Summary ---
Author Organization [employer] tem Address [id number] [address] [place] [address] Care Team Providers Care Building Services Engineer Name Role Phone Cisco Blanc Primary Care Provider Encounter Details Date Type Department Care Team (Late st Contact Info) Description 02/06/2024 Orders Only [facility] - Family Medicine [address] [place] [phone] Ty Burciaga DO [address] [place] [address] Change in bowel habits (Primary Dx) Social [...] week 08/01/2022 How often do you attend christian or quaker serv ices? Never 08/01/2022 Active Member of [...] Answer Date Recorded Total Score 16 12/09/2023 [facility] of Occupat ional Health - Occupational [...] Do you need help finding a [facility] career center and/or a training [...] family, patient needs to fllow up with [facility] Dc documented as of this encounter Visit Diagnoses Diagnosis Change in bowel habits- Primary Other symptoms involving digestive system documented in this encounter Additional Health Concerns Assessment Noted Time PHQ-9 Depression Total Score: 16 024 8:43 AM EDT documented as of this encounter Care Teams Building Services Engineer Relationship Specialty Start Date End Date Cisco Blacn DO [address] [facility], [place] [address] PCP - General Family Medicine 12/19/19 documented as of this encounter
--- OUTSIDE RECORDS SUMMARY | 2025-04-08 09:16 | XMS_ITS | Encounter Summary ---
Author Organization [employer] tem Address [id number] [address] [place] [address] Care Team Providers Care Plant Etiologist Name Role Phone Cisco Blanc Primary Care Provider Encounter Details Date Type Department Care Team (Late st Contact Info) Description 04/03/2024 Orders Only [facility] - Family Medicine [address] [place] [address] Ref Prov, [place] [address] Social History Tobacco Use Types Packs/Day Years [...] week 08/01/2022 How often do you attend adventist or presybeterian serv ices? Never 08/01/2022 Active Member of [...] Date Recorded Total Score 21 03/15/2024 [facility] of Occupat [facility] - Occupational Stress Questionnaire Answer Date Recorded [...] patient needs to fllow up with [facility] documented as of this encounter Procedures Procedure [...] documented as of this encounter Care Teams Plant Etiologist Relationship Specialty Start Date End Date Cisco Blanc DO [address] [facility], [place] [address] PCP - General Family Medicine 12/19/19 documented as of this encounter
--- OUTSIDE RECORDS SUMMARY | 2025-04-08 09:16 | XMS_ITS | Encounter Summary ---
Author Organization [employer] Address [id number] [address] [place] [address] Care Team Providers Care Nurse Orthopaedic Name Role Phone Cisco Blanc DO Primary Care Provider [phone] Reason for Visit * Reason Comments Med Refill Encounter Details Date Type Department Care Team (Late st Contact Info) Description 09/15/2022 Refill [facility] - Family Medicine [address] [place] [address] Cisco Blanc DO [address], [facility] [place] [address] Social History Tobacco Use Types Packs/Day Years [...] week 08/01/2022 How often do you attend worship or hoahaoism serv ices? Never 08/01/2022 Active Member of [...] Answer Date Recorded Total Score 9 08/01/2022 [facility] of Occupat ional Health - [...] fllow up with [facility] upon Dc documented as of this encounter Visit Diagnoses Not on filedocumented in this encounter Additional Health Concerns Assessment Noted Time PHQ-9 Depression Total Score: 9 08/01/20 22 6:00 PM EST documented as of this encounter Care Teams Nurse Orthopaedic Relationship Specialty Start Date End Date Cisco Blanc DO [address] [facility] [place] [address] PCP - General Family Medicine 12/19/19 documented as of this encounter
--- OUTSIDE RECORDS SUMMARY | 2025-04-08 09:16 | XMS_ITS | Encounter Summary ---
Author Organization [employer] Address [id number] [address] [place] [address] Care Team Providers Care Yard Specialist Name Role Phone Cisco Blanc Primary Care Provider Encounter Details Date Type Department Care Team (Late st Contact Info) Description 05/30/2024 Orders Only [facility] - Family Medicine [address] [place] [address] Ref Prov, [place] [address] Social History Tobacco Use Types Packs/Day Years [...] week 08/01/2022 How often do you attend mandaeism or voodoo serv ices? Never 08/01/2022 Active Member of [...] Answer Date Recorded Total Score 21 03/15/2024 [facility] - Occupational Stress Questionnaire Answer Date [...] Recorded Do you need help finding a [facility] career center and/or a training [...] family, patient needs to fllow up with [facility] documented as of this encounter [...] documented as of this encounter Care Teams Yard Specialist Relationship Specialty Start Date End Date Cisco Blanc DO [address] [place] [address] PCP - General Family Medicine 12/19/19 documented as of this encounter
--- OUTSIDE RECORDS SUMMARY | 2025-04-08 09:16 | XMS_ITS | Encounter Summary ---
Author Organization [email or web address] Address [id number] [address] [place] [address] Care Team Providers Care Extension Supervisor Name Role Phone Cisco Blanc Primary Care Provider [phone] Encounter Details Date Type Department Care Team (Late st Contact Info) Description 03/13/2024 Orders Only [facility] - Family Medicine [address] [place] [address] Ref Prov, [place] [address] Social History Tobacco Use Types Packs/Day Years [...] How often do you attend anabaptist or scientologist serv ices? Never 08/01/2022 Active Member of [...] Answer Date Recorded Total Score 21 03/15/2024 [facility] of Occupat [facility] - Occupational Stress Questionnaire Answer Date [...] Recorded Do you need help finding a [facility] career center and/or a training [...] up with [facility] documented as of this encounter [...] documented as of this encounter Care Teams Extension Supervisor Relationship Specialty Start Date End Date Cisco Blanc DO [address] [facility], [place] [address] PCP - General Family Medicine 12/19/19 documented as of this encounter
--- OUTSIDE RECORDS SUMMARY | 2025-04-08 09:16 | XMS_ITS | Encounter Summary ---
Author Organization [employer] tem Address [id number] [address] [place] [address] Care Team Providers Care Precision Agriculture Technician Name Role Phone Cisco Blanc DO Primary Care Provider [phone] Reason for Visit * Reason Comments Med Refill Encounter Details Date Type Department Care Team (Late st Contact Info) Description 06/18/2022 Refill [facility] - Family Medicine [address] [place] [address] Cisco Blanc DO [address], [facility] [place] [address] Social History Tobacco Use Types Packs/Day Years [...] on filedocumented in this encounter Care Teams Precision Agriculture Technician Relationship Specialty Start Date End Date Cisco Blanc DO [address] [facility], [place] [address] PCP - General Family Medicine 12/19/19 documented as of this encounter
--- OUTSIDE RECORDS SUMMARY | 2025-04-08 09:16 | XMS_ITS | Encounter Summary ---
Author Organization [employer] Address [id number] [address] [place] [address] Care Team Providers Care Transplant Worker Name Role Phone Cisco Blanc DO Primary Care Provider + [phone] Reason for Visit * Reason Comments Med Refill Encounter Details Date Type Department Care Team (Late st Contact Info) Description 05/12/2022 Refill [facility] - Family Medicine [address] [place] [address] Michelle Francis APRN-CNP [address] [place] [address] Social History Tobacco Use Types Packs/Day Years [...] family, patient needs to fllow up with [facility] upon Dc documented as of this encounter Visit Diagnoses Not on filedocumented in this encounter Care Teams Transplant Worker Relationship Specialty Start Date End Date Cisco Blanc DO [address] [place] [address] PCP - General Family Medicine 12/19/19 documented as of this encounter
--- OUTSIDE RECORDS SUMMARY | 2025-04-08 09:16 | XMS_ITS | Encounter Summary ---
Author Organization [employer] Address [id number] [address] [place] [address] Care Team Providers Care Warehouse Person Name Role Phone Cisco Blanc Primary Care Provider [phone] Encounter Details Date Type Department Care Team (Late st Contact Info) Description 09/06/2024 Orders Only [facility] - Family Medicine [address] [place] [address] Ref Prov, [place] [address] Social History Tobacco Use Types Packs/Day Years [...] How often do you attend taoist or roman catholic serv ices? Never 08/01/2022 Active Member of [...] Answer Date Recorded Total Score 21 03/15/2024 [facility] - Occupational Stress Questionnaire Answer Date Recorded [...] Do you need help finding a [facility] career center and/or a training program? [...] family, patient needs to fllow up with [facility] documented as of this encounter [...] documented as of this encounter Care Teams Warehouse Person Relationship Specialty Start Date End Date Cisco Blanc DO [address], [place] [address] PCP - General Family Medicine 12/19/19 documented as of this encounter
--- OUTSIDE RECORDS SUMMARY | 2025-04-08 09:16 | XMS_ITS | Encounter Summary ---
Author Organization [employer] Address [id number] [address] [place] [address] Care Team Providers Care Assembler Engine Name Role Phone Cisco Blanc Primary Care Provider Encounter Details Date Type Department Care Team (Late st Contact Info) Description 02/20/2024 [facility]phone [facility] [address] [place] [address] Linda Marc CMA Social History Tobacco Use [...] week 08/01/2022 How often do you attend mormon or mormonism serv ices? Never 08/01/2022 Active [...] Answer Date Recorded Total Score 16 12/09/2023 [facility] [place] of Occupat ional Health - Occupational Stress [...] Recorded Do you need help finding a [place] [facility] career center and/or a training program? [...] Author home with self care General Yes Jneny Noonan, RN Note: Evaluation of progress towards goal: with support from friends and family, patient needs to [facility]ow up with [facility] upon Dc documented as of this encounter Visit Diagnoses Not on filedocumented in this encounter Additional Health Concerns Assessment Noted Time PHQ-9 Depression Total Score: 16 024 8:43 AM EDT documented as of this encounter Care Teams Assembler Engine Relationship Specialty Start Date End Date Cisco Blanc DO [address], [place] [address] PCP - General Family Medicine 12/19/19 documented as of this encounter
--- OUTSIDE RECORDS SUMMARY | 2025-04-08 09:16 | XMS_ITS | Encounter Summary ---
Author Organization [employer] Address [id number] [address] [place] [address] Care Team Providers Care Sporting Goods Salesperson Name Role Phone Cisco Blanc DO Primary Care Provider [phone] Reason for Visit * Reason Comments Med Refill Encounter Details Date Type Department Care Team (Late st Contact Info) Description 08/17/2022 Refill [facility] - Family Medicine [address] [place] [address] Cisco Blanc DO [address], [facility] [place] [address] Social History Tobacco Use Types Packs/Day Years [...] How often do you attend catholic or yazidi serv ices? Never 08/01/2022 Active Member of [...] Answer Date Recorded Total Score 9 08/01/2022 [facility] of Occupat ional Health - [...] documented as of this encounter Care Teams Sporting Goods Salesperson Relationship Specialty Start Date End Date Cisco Blanc DO [address], [place] [address] PCP - General Family Medicine 12/19/19 documented as of this encounter
--- OUTSIDE RECORDS SUMMARY | 2025-04-08 09:16 | XMS_ITS | Encounter Summary ---
Author Organization [employer] tem Address [id number] [address] [place] [address] Care Team Providers Care Railroad Baggage Porter Name Role Phone Cisco Blanc Primary Care Provider Encounter Details Date Type Department Care Team (Late st Contact Info) Description 03/19/2024 Orders Only [facility] - Family Medicine [address] [place] [address] Ty Burciaga DO [address] [place] [address] Rectal fissure (Primary Dx) Social History Tobacco [...] week 08/01/2022 How often do you attend buddhism or anabaptism serv ices? Never 08/01/2022 Active [...] Answer Date Recorded Total Score 21 03/15/2024 [facility] of Occupat ional Health - Occupational [...] Recorded Do you need help finding a [facility] career center and/or a training program? [...] up with [facility] Dc documented as of this encounter Visit Diagnoses Diagnosis Rectal fissure- Primary Anal fissure documented in this encounter Additional Health Concerns Assessment Noted Time PHQ-9 Depression Total Score: 21 024 4:01 PM EDT documented as of this encounter Care Teams Railroad Baggage Porter Relationship Specialty Start Date End Date Cisco Blanc DO [address] [facility], [place] [address] PCP - General Family Medicine 12/19/19 documented as of this encounter
--- OUTSIDE RECORDS SUMMARY | 2025-04-08 09:16 | XMS_ITS | Encounter Summary ---
Author Organization [employer] tem Address [id number] [address] [place] [address] Care Team Providers Care Hog Grader Name Role Phone Cisco Blanc Primary Care Provider Encounter Details Date Type Department Care Team (Late st Contact Info) Description 11/23/2023 Orders Only [facility] - Family Medicine [address] [place] [address] External, Scanning Provider Social History Tobacco Use [...] How often do you attend taoist or caodaism serv ices? Never 08/01/2022 Active Member of [...] Answer Date Recorded Total Score 0 02/17/2023 [facility] [place] of Occupat ional Health - Occupational Stress [...] Recorded Do you need help finding a [facility] career center and/or a training program? [...] documented as of this encounter Care Teams Hog Grader Relationship Specialty Start Date End Date Cisco Blanc DO [address], [place] [address] PCP - General Family Medicine 12/19/19 documented as of this encounter
--- OUTSIDE RECORDS SUMMARY | 2025-04-08 09:16 | XMS_ITS | Encounter Summary ---
Author Organization [employer] tem Address [id number] [address] [place] [address] Care Team Providers Care Cloud Engineer Name Role Phone Cisco Blanc Primary Care Provider Encounter Details Date Type Department Care Team (Late st Contact Info) Description 03/12/2024 Orders Only [facility] - Family Medicine [address] [place] [address] Ref Prov, [place] [address] Social History Tobacco Use Types Packs/Day Years [...] How often do you attend scientologist or congregational serv ices? Never 08/01/2022 Active Member of [...] Answer Date Recorded Total Score 21 03/15/2024 [facility] of Occupat [facility] - Occupational Stress Questionnaire Answer Date [...] family, patient needs to fllow up with [facility] documented as of this encounter [...] documented as of this encounter Care Teams Cloud Engineer Relationship Specialty Start Date End Date Cisco Blanc DO [address], [place] [address] PCP - General Family Medicine 12/19/19 documented as of this encounter
--- OUTSIDE RECORDS SUMMARY | 2025-04-08 09:16 | XMS_ITS | Encounter Summary ---
Author Organization [employer] tem Address [id number] [address] [place] [address] Care Team Providers Care Ion Implant Machine Operator Name Role Phone Cisco Blanc DO Primary Care Provider Encounter Details Date Type Department Care Team (Late st Contact Info) Description 03/09/2024 Orders Only [facility] Internal Medicine - Family Medicine [address] [place] [phone] Cisco Blanc DO [address], [place] [address] Irritable bowel syndrome with constipation (Primary Dx); [...] How often do you attend gnosticist or christian serv ices? Never 08/01/2022 Active Member of [...] Answer Date Recorded Total Score 16 12/09/2023 [facility] of Occupat ional Health - Occupational Stress [...] documented as of this encounter Care Teams Ion Implant Machine Operator Relationship Specialty Start Date End Date Cisco Blanc DO [address] [facility], [place] [address] PCP - General Family Medicine 12/19/19 documented as of this encounter
--- OUTSIDE RECORDS SUMMARY | 2025-04-08 09:16 | XMS_ITS | Encounter Summary ---
Author Organization [employer] tem Address [id number] [address] [place] [address] Care Team Providers Care Heavy Repairer Name Role Phone Cisco Blanc Primary Care Provider [phone] Encounter Details Date Type Department Care Team (Late st Contact Info) Description 03/11/2023 Orders Only [facility] Internal Medicine - Family Medicine [address] [place] [phone] External, Scanning Provider Social History Tobacco Use [...] How often do you attend restorationism or islam serv ices? Never 08/01/2022 Active Member of [...] Answer Date Recorded Total Score 0 02/17/2023 [facility] of Occupat ional Health - Occupational [...] Recorded Do you need help finding a [facility] career center and/or a training program? No [...] family, patient needs to fllow up with [facility] Dc documented as of this [...] as of this encounter Care Teams Heavy Repairer Relationship Specialty Start Date End Date Cisco Blanc DO [address] [facility], [place] [address] PCP - General Family Medicine 12/19/19 documented as of this encounter
--- OUTSIDE RECORDS SUMMARY | 2025-04-08 09:16 | XMS_ITS | Encounter Summary ---
Author Organization [employer] tem Address [id number] [address] [place] [address] Care Team Providers Care Ingot Buggy Operator Name Role Phone Cisco Blanc Primary Care Provider Encounter Details Date Type Department Care Team (Late st Contact Info) Description 02/25/2023 Orders Only [facility] Internal Medicine - Family Medicine [address] [place] [phone] External, Scanning Provider Social History Tobacco Use [...] How often do you attend anabaptist or yarsanism serv ices? Never 08/01/2022 Active Member of [...] Answer Date Recorded Total Score 0 02/17/2023 [facility] of Occupat ional Health - Occupational Stress [...] Do you need help finding a [facility] and/or a training [...] documented as of this encounter Care Teams Ingot Buggy Operator Relationship Specialty Start Date End Date Cisco Blanc DO [address] [place] [address] PCP - General Family Medicine 12/19/19 documented as of this encounter
--- OUTSIDE RECORDS SUMMARY | 2025-04-08 09:16 | XMS_ITS | Encounter Summary ---
Author Organization [employer] tem Address [id number] [address] [place] [address] Care Team Providers Care Labor Relations Specialist Name Role Phone Cisco Blanc Primary Care Provider Encounter Details Date Type Department Care Team (Late st Contact Info) Description 02/24/2023 Orders Only [facility] Internal Medicine - Family Medicine [address] [place] [phone] External, Scanning Provider Social History Tobacco Use [...] How often do you attend hinduism or hindu serv ices? Never 08/01/2022 Active [...] Answer Date Recorded Total Score 0 02/17/2023 [facility] of Occupat ional Health - Occupational Stress [...] to fllow up with [facility] Dc documented as of this [...] documented as of this encounter Care Teams Labor Relations Specialist Relationship Specialty Start Date End Date Cisco Blanc DO [address] [facility], [place] [address] PCP - General Family Medicine 12/19/19 documented as of this encounter
--- OUTSIDE RECORDS SUMMARY | 2025-04-08 09:16 | XMS_ITS | Encounter Summary ---
Author Organization [employer] tem Address [id number] [address] [place] [address] Care Team Providers Care Catering Truck Operator Name Role Phone Cisco Blanc DO Primary Care Provider [phone] Reason for Visit * Reason Comments Med Refill Encounter Details Date Type Department Care Team (Late st Contact Info) Description 02/15/2023 Refill [facility] Internal Medicine - Family Medicine [address] [place] [address] Cisco Blanc DO [address], [facility] [address] Social History Tobacco Use Types Packs/Day Years [...] How often do you attend scientology or episcopal serv ices? Never 08/01/2022 Active [...] Answer Date Recorded Total Score 0 02/17/2023 [facility] of Occupat ional Health - Occupational [...] Recorded Do you need help finding a [facility] and/or a training [...] to [facility] with [facility] documented as of this encounter Visit Diagnoses Not on filedocumented in this encounter Additional Health Concerns Assessment Noted Time PHQ-9 Depression Total Score: 9 08/01/20 22 6:00 PM EST documented as of this encounter Care Teams Catering Truck Operator Relationship Specialty Start Date End Date Cisco Blanc DO [address], [facility] [address] PCP - General Family Medicine 12/19/19 documented as of this encounter
--- OUTSIDE RECORDS SUMMARY | 2025-04-08 09:16 | XMS_ITS | Encounter Summary ---
Author Organization [employer] tem Address [id number] [address] [place] [address] Care Team Providers Care Commercial Airline Pilot Name Role Phone Cisco Blanc Primary Care Provider Encounter Details Date Type Department Care Team (Late st Contact Info) Description 06/01/2024 Orders Only [facility] Internal Medicine - Family Medicine [address] [place] [address] Ref Prov, [place] [address] Social History Tobacco Use Types Packs/Day Years [...] How often do you attend jain or mandaeism serv ices? Never 08/01/2022 Active Member of [...] Answer Date Recorded Total Score 21 03/15/2024 [facility] Questionnaire Answer Date [...] Recorded Do you need help finding a [facility] and/or a training program? [...] patient needs to [facility]ow [facility] with [facility] documented as of this encounter [...] documented as of this encounter Care Teams Commercial Airline Pilot Relationship Specialty Start Date End Date Cisco Blanc DO [address] [facility], [place] [address] PCP - General Family Medicine 12/19/19 documented as of this encounter
--- OUTSIDE RECORDS SUMMARY | 2025-04-08 09:16 | XMS_ITS | Encounter Summary ---
Author Organization [employer] tem Address [id number] [address] [place] [address] Care Team Providers Care Development Team Lead Name Role Phone Cisco Blanc DO Primary Care Provider [phone] Reason for Visit * Reason Comments Med Refill Encounter Details Date Type Department Care Team (Late st Contact Info) Description 08/30/2022 Refill [facility] Internal Medicine - Family Medicine [address] [place] [address] Cisco Blanc DO [address], [facility] [place] [address] Social History Tobacco Use Types Packs/Day Years [...] week 08/01/2022 How often do you attend uatsdin or protestant serv ices? Never 08/01/2022 Active Member of [...] Answer Date Recorded Total Score 9 08/01/2022 [facility] of Occupat ional Health - Occupational [...] to fllow up with [facility] documented as of this encounter Visit Diagnoses Not on filedocumented in this encounter Additional Health Concerns Assessment Noted Time PHQ-9 Depression Total Score: 9 08/01/20 22 6:00 PM EST documented as of this encounter Care Teams Development Team Lead Relationship Specialty Start Date End Date Cisco Blanc DO [address], [place] [address] PCP - General Family Medicine 12/19/19 documented as of this encounter
--- OUTSIDE RECORDS SUMMARY | 2025-04-08 09:16 | XMS_ITS | Clinical Summary ---
Author Organization [facility] Healthcare Address [address] [place] [address] Care Team Providers Care Shallot Cleaner Name Role Phone Unavailable Primary Care Provider [...]
--- OUTSIDE RECORDS SUMMARY | 2025-04-08 09:16 | XMS_ITS | Encounter Summary ---
Author Organization [employer] tem Address [id number] [address] [place] [address] Care Team Providers Care Point Of Care Specialist Name Role Phone Cisco Blanc DO Primary Care Provider [phone] Reason for Visit * Reason Comments Med Refill Encounter Details Date Type Department Care Team (Late st Contact Info) Description 01/18/2023 Refill [facility] Medicine - Family Medicine [address] [place] [address] Cisco Blanc DO [address], [facility] [place] [address] Social History Tobacco Use Types Packs/Day Years [...] week 08/01/2022 How often do you attend latter-day or pentecostalism serv ices? Never 08/01/2022 Active Member of [...] Answer Date Recorded Total Score 9 08/01/2022 [facility] of Occupat ional Health - [...] documented as of this encounter Care Teams Point Of Care Specialist Relationship Specialty Start Date End Date Cisco Blanc DO [address] [facility], [place] [address] PCP - General Family Medicine 12/19/19 documented as of this encounter
--- OUTSIDE RECORDS SUMMARY | 2025-04-08 09:16 | XMS_ITS | Encounter Summary ---
Author Organization [employer] tem Address [id number] [address] [place] [address] Care Team Providers Care Netsuite Consultant Name Role Phone Cisco Blanc DO Primary Care Provider [phone] Reason for Visit * Reason Comments Med Refill Encounter Details Date Type Department Care Team (Late st Contact Info) Description 04/10/2024 Refill [facility] Internal Medicine - Family Medicine [address] [place] [address] Cisco Blanc DO [address], [facility] [place] [address] Social History Tobacco Use Types Packs/Day Years [...] How often do you attend worship or mandaeism serv ices? Never 08/01/2022 Active [...] Answer Date Recorded Total Score 21 03/15/2024 [facility] of Occupat ional Health [...] documented as of this encounter Care Teams Netsuite Consultant Relationship Specialty Start Date End Date Cisco Blanc DO [address] [facility], [facility] [place] [place] [address] PCP - General Family Medicine 12/19/19 documented as of this encounter
--- OUTSIDE RECORDS SUMMARY | 2025-04-08 09:16 | XMS_ITS | Encounter Summary ---
Author Organization [employer] tem Address [id number] [address] [place] [address] Care Team Providers Care Grass Cutter Name Role Phone Cisco Blanc DO Primary Care Provider [phone] Reason for Visit * Reason Comments Med Refill Encounter Details Date Type Department Care Team (Late st Contact Info) Description 05/12/2022 [facility] [address] [place] [phone] Cisco Blanc DO [address] [facility] [place] [address] Social History Tobacco Use Types Packs/Day Years [...] up with [facility] upon Dc documented as of this encounter Visit Diagnoses Not on filedocumented in this encounter Care Teams Grass Cutter Relationship Specialty Start Date End Date Cisco Blanc DO [address] [facility] [place] [address] PCP - General Family Medicine 12/19/19 documented as of this encounter
--- OUTSIDE RECORDS SUMMARY | 2025-04-08 09:16 | XMS_ITS | Encounter Summary ---
Author Organization [employer] tem Address [id number] [address] [place] [address] Care Team Providers Care Dock Hand Name Role Phone Cisco Blanc Primary Care Provider Encounter Details Date Type Department Care Team (Late st Contact Info) Description 05/07/2024 Orders Only [facility] Internal Medicine - Family Medicine [address] [place] [address] Ref Prov, [place] [address] Social History Tobacco Use Types Packs/Day Years [...] How often do you attend scientology or christianity serv ices? Never 08/01/2022 Active Member of [...] Answer Date Recorded Total Score 21 03/15/2024 [facility] of Occupat [facility] - Occupational Stress Questionnaire Answer Date [...] Do you need help finding a [facility] and/or a training program? [...] documented as of this encounter Care Teams Dock Hand Relationship Specialty Start Date End Date Cisco Blanc DO [address] [facility], [place] [address] PCP - General Family Medicine 12/19/19 documented as of this encounter
--- OUTSIDE RECORDS SUMMARY | 2025-04-08 09:16 | XMS_ITS | Encounter Summary ---
Author Organization [employer] tem Address [id number] [address] [place] [address] Care Team Providers Care Senior Stock Plan Administrator Name Role Phone Cisco Blanc Primary Care Provider Encounter Details Date Type Department Care Team (Late st Contact Info) Description 03/08/2024 [facility] [address] [place] [phone] Linda Marc CMA Social History Tobacco Use [...] week 08/01/2022 How often do you attend taoism or faith serv ices? Never 08/01/2022 Active [...] Answer Date Recorded Total Score 16 12/09/2023 [facility] of Occupat ional Health - Occupational Stress [...] Recorded Do you need help finding a [employer] [facility] career center and/or a training program? [...] to put a referral in for a Chip Bin Operator.He states his blood pressure is up and struggles with constipation. * Telephone Encounter - Cisco Blanc DO - 03/08/2024 1:44 PM EDT Okay I sent a referral into the mechanical assembler in [place]. He is overdue for a wellness visit here. Please set up * Telephone Encounter - [...] family, patient needs to fllow up with [facility] Dc documented as of this encounter Visit Diagnoses Not on filedocumented in this encounter Additional Health Concerns Assessment Noted Time PHQ-9 Depression Total Score: 16 024 8:43 AM EDT documented as of this encounter Care Teams Senior Stock Plan Administrator Relationship Specialty Start Date End Date Cisco Blanc G, DO [address] [facility], [place] [address] PCP - General Family Medicine 12/19/19 documented as of this encounter
--- OUTSIDE RECORDS SUMMARY | 2025-04-08 09:16 | XMS_ITS | Clinical Summary ---
Demographics Address [address] [place] [address] Home Phone Mobile Phone Email Address Preferred Language en Marital Status Single Congregational Affiliation Unknown Race White Ethnic Group Not or Lati no Author Organization [facility] Address [address] [place] [address] Care Team Providers Care Filling Room Operator Name Role Phone Unavailable Primary Care [...]
--- OUTSIDE RECORDS SUMMARY | 2025-04-08 09:24 | XMS_ITS | CCD ---
Author Organization [facility] Care Team Providers Care Senior Cobol Developer Name Role Phone OSINOWO, OSIYEMI Unavailable Unavailable OSINOWO, OSIYEMI Unavailable Unavailable NADERER, TYSON Unavailable Unavailable NADERER, TYSON Unavailable Unavailable Mary King Unavailable Tawnya Andre Unavailable CHAD, DR CISCO Thomason Primary Care Unavailable MARKER, DR JUARES Admitting Unavailable MARKER, DR JUARES Attending Unavailable MARKER, DR JUARES Consulting Unavailable ALANA MORROW Consulting Unavailable DO Cisco Bonilla Primary Care Provider MD Jennyfer Winkler Emergency Provider [phone] CISCO BONILLA Primary Care Physician JAME De Emergency Provider JENNYFER AUGUSTIN Admitting Unavailable JENNYFER AUGUSTIN Attending Unavailable CISCO BONILLA Primary Care Unavailable JENNYFER AUGUSTIN Attending Unavailable JENNYFER AUGUSTIN Referring Unavailable CISCO BONILLA Primary Care Unavailable CARLOS ALBERTOLOKILEY, CISCO Thomason Primary Care Unavailable JEY NORRIS Attending Unavailable Carlos Albertolong Cisco MCLAUGHLIN Primary Care Provider Cisco Bonilla DO Primary Care Provider [phone] CISCO BONILLA Attending Unavailable CARLOS ALBERTOLOCISCO BONDS Referring Unavailable FURLONG, CISCO Thomason Primary Care Unavailable FURLONG, CISCO Thomason Attending Unavailable FURLONG, CISCO Thomason Referring Unavailable FURLONG, CISCO Thomason Primary Care Unavailable CARLOS ALBERTOLONGCISCO Attending Unavailable FURLONG, CISCO Thomason Referring Unavailable FURLONG, CISCO Thomason Primary Care Unavailable FURLONG, CISCO G Referring Unavailable FURLONG, CISCO G Primary Care Unavailable FURLONG, CISCO G Referring Unavailable FURLONG, CISCO G Primary Care Unavailable Tyson Tolliver MD Primary Care Provider [phone] Vivian Brady MD Unavailable Furclyde MCLAUGHLIN Cisco Primary Care Provider Ehsan Avina DO A Attending Provider [phone] Ehsan Avina DO A Other Provider Kailyn, Ehsan A Admitting Unavailable Kailyn, Ehsan A Attending Unavailable Furlong, Cisco Primary Care Unavailable Kailyn, Ehsan A Admitting Unavailable Kailyn, Ehsan A Attending Unavailable Furlong, Cisco Primary Care Unavailable Kailyn, Ehsan A Admitting Unavailable Kailyn, Ehsan A Attending Unavailable Carlos Albertolong, Cisco Primary Care Unavailable FELIPE ARIAS Referring Unavailable TYSON TOLLIVER Primary Care Unavailable FELIPE ARIAS Referring Unavailable LYDIA DRAKE Attending Unavailable TYSON TOLLIVER Primary Care Unavailable LYDIA DRAKE Attending Unavailable TYSON TOLLIVER Primary Care Unavailable Vivian Brady Attending Unavailable Vivian Brady Attending Unavailable Vivian Brady Attending Unavailable Allergies Allergy Classification Reported Allergen(s) Allergy Type Date of Onset Reaction(s) Facility (1 source) No Known Medication Allergies; Translations: [No Known Medication Allergies] Propensity to adverse reactions (disorder) [facility] Medications Current Medications Medication Drug Class(es) Dates Sig (Normalized) Sig (Original) acetaminophen 325 mg / HYDROcodone bitartrate 5 mg oral tablet (20 sources) Opioid Agonist Start: 03-13-2025 take 1 tablet by mouth twice daily as needed for pain Hydrocodone-Aceta minophen 5-325 mg tablet Active 1 TAB PO Twice daily as needed for pain March 13, 2025 Diagnosis: S92.351A Dispense: 20 (Twenty) Complies with drug therapy Start: 03-04-2025 End: 03-04-2025 take 1 tablet by mouth twice daily as needed for pain Hydrocodone-Acetaminophen 5-325 mg table t Discontinued 1 TAB PO Twice daily as needed for pain March 04, 2025 March 04, 2025 12:43pm Diagnosis: S92.351A Dispense: 30 (THIRTY) Start: 02-18-2025 End: 03-13-2025 take 1 tablet by mouth twice daily as needed for pain Hydrocodone-Acetaminophen 5-325 mg table t Discontinued 1 TAB PO Twice daily as needed for pain March 04, 2025 March 13, 2025 4:14pm Diagnosis: S92.351A Dispense: 20 (Twenty) ALPRAZolam 0.5 mg oral tablet (20 sources) Benzodiazepine Start: 03-18-2025 take 1 tablet by mouth once daily as needed for anxiety Alprazolam 0.5 mg tablet Active 0.5 MG PO Daily as needed for anxiety March 18, 2025 12:00am Complies with drug therapy Start: 12-10-2024 ALPRAZolam (XA NAX) 2 mg tablet Take 1 mg by mouth. 12/10/2024 Active Start: 12-10-2024 take 0.5 tablet by m outh once daily as needed for anxiety ALPRAZolam [...] Activ e amLODIPine 5 mg oral tablet (20 sources) Dihydropyridine Calcium Channel Catherine Start: 08-19-2019 End: 09-11-2024 take 1 tablet by mouth once daily amLODIPine (NORVASC) 5 mg tablet 1 tablet Oral Once a day for 30 days 02/02/2024 Active amLODIPine Besyl ate Active anastrozole 1 mg oral tablet (20 sources) Aromatase Inhibitor Start: 03-03-2024 anastrozol e (ARIMIDEX) 1 mg tablet Take by mouth. 03/03/2024 Active Start: 03-03-2024 End: 02-18-2025 take 1 tablet by mouth every week Anastrozole 1 mg tablet Discontinued 1 MG PO .weekly March 03, 2024 12:00am February 18, 2025 1:42pm baclofen 10 mg oral tablet (2 sources) gamma-Aminobutyric Acid-ergic Agonist Start: 03-18-2025 take 1 tablet by mouth every twelve hours Baclofen 10 mg tablet Active 10 MG PO Every 12 hours March 18, 2025 12:00am Complies with drug therapy baclofen suppository 10 mg (CPD) (6 sources) Start: 03-26-2025 End: 04-25-2025 baclofen suppository 10 mg (CPD) Indications: Pelvic floor dysfunction , Rectal spasm , Constipation, unspecified constipation type 1 suppository by RECTAL route two times a day as needed (rectal pain). Unwrap and insert as directed. 60 suppository 03/26/2025 04/25/2025 Active Start: 02-28-2025 End: 03-30-2025 baclofen suppository 10 mg ( CPD) Indications: Pelvic floor dysfunction , Rectal spasm , Constipation, unspecified constipation type 1 suppository by RECTAL route two times a day as needed (rectal pain). Unwrap and insert as directed. 60 suppository 02/28/2025 03/30/2025 Active cloNIDine hydrochloride 0.1 mg oral tablet (20 sources) Central alpha-2 Adrenergic Agonist Start: 10-15-2024 End: 03-22-2025 cloNIDine HCl (CATAPRES) 0.1 mg tablet Take 0.1 mg by mouth. 01/09/2025 Active cyclobenzaprine hydrochloride 10 mg oral tablet (1 source) Muscle Relaxant Start: 02-03-2021 take 1 tablet by mouth every eight hours Cyclobenzaprine HCl 10 MG 1 tablet at bedtime as needed Orally Three times a day for 7 days Jan, Active dicyclomine hydrochloride 10 mg oral capsule (20 sources) Anticholinergic Start: 12-17-2024 take 1 capsule [...] rectal cream (20 sources) Corticosteroid Start: 12-20-2024 Pramoxine-Hydr ocor tisone (ANALPRAM-HC) 1-1 % rectal cream 1 application by RECTAL route. 12/20/2024 Active Start: 12-20-2024 hydrocortisone -pramoxine (ANALPRAM-HC) 1-1 % rectal cream Insert 1 [...] 30 g 09/12/2024 12/10/2024 Discontinued (Therapy completed) Hydrophilic Cream ointment (2 sources) Start: 03-18-2025 Hydrophilic Cr eam ointment Active 1 APPLIC TOPICAL Twice daily March 18, 2025 12:00am Complies with drug therapy hydrOXYzine pamoate 50 mg oral capsule (4 sources) Antihistamine Start: 12-09-2023 take 1 capsule by mouth three times daily as needed for anxiety hydrOXYzine (VISTARIL) 50 mg capsule Take 1 capsule (50 mg total) by mouth 3 (three) times a day as needed for anxiety. 30 capsule 1 12/09/2023 Active ibuprofen 200 mg oral tablet (2 sources) Nonsteroidal Anti-inflammatory Drug Start: 03-18-2025 Ibuprofen (Addaprin) 200 mg tablet Active 600 MG PO Every 8 hours as needed for pain March 18, 2025 12:00am Complies with drug therapy lidocaine 0.05 mg/mg medicated patch (1 source) Antiarrhythmic, Amide Local Anesthetic Start: 02-03-2021 Lidocaine 5 % 1 patch remove after 12 hours Externally Once a day for 7 days Jan, Active linaclotide 0.072 mg oral capsule (11 sources) Guanylate Cyclase-C Agonist Start: 12-09-2023 take 1 capsule by mouth every twenty-four hours linaCLOtide (LINZESS) 72 mcg capsule Take 72 mcg by mouth every 24 hours. 12/09/2023 Active metoprolol tartrate 25 mg oral tablet (20 sources) beta-Adrenergic Catherine Start: 02-18-2025 take 1 tablet by mouth once daily Metoprolol Tartrate 25 mg tablet Active 25 MG PO Daily February 18, 2025 12:00am Non-compliance of drug therapy Start: 02-02-2024 End: 09-11-2024 take 1 tablet [...] 03/14/2024 Discontinued (Reorder) Metoprolol Tartr ate Active petrolatum 1 mg/mg topical ointment (7 sources) Start: 02-19-2025 petrolatum, wh ite 100 % gel 02/19/2025 Active plecanatide 3 mg oral tablet (13 sources) Start: 01-24-2025 plecanatide (T RULANCE) 3 mg tablet Take 3 mg by mouth. 01/24/2025 Active polyethylene glycol 3350 32468 mg powder for oral solution (20 sources) Osmotic Laxative Start: 01-28-2025 End: 03-22-2025 polyethylene glycol 3350 17 gram/dose powder Take 17 g by mouth. 01/28/2025 Active Start: 09-11-2024 End: 01-26-2025 take 17 g by mouth once daily Miralax 3350 17 gram pac ket 17 gm, Oral, Daily, # 255 gm, Refills(s) 3, Pharmacy: [facility], 173, cm, 01/09/25 12:52:00 EDT, Height/Length [...] bedtime) for constipation, 100 tab(s), Refill(s) 3, [facility], 173, cm, 01/09/25 12:52:00 EDT, Height/Length Dosing, 90.9, kg, 01/09/25 12:52:00 EDT, Weight Dosing Start Date: 01/09/25 Status: Ordered Quantity: 100.0 Unit: tab(s) Repeat number: 4 Sertraline (2 sources) Serotonin Reuptake Inhibitor Sertraline HCl Activ e Testosterone (20 sources) Androgen Start: 01-09-2025 testosterone R efills(s) 0 Start Date: 01/09/25 Status: Ordered Repeat number: 1 Start: 03-03-2024 testosterone c ypionate (DEPO-TESTOSTERONE) 200 mg/mL injection 1 mL. 03/03/2024 Active Start: 03-03-2024 inject 180 mg by int ramuscular injection two times weekly Testosterone Cypionate 200 mg/mL oil Active 180 MG IM Twice a Week March 03, 2024 12:00am Complies with drug therapy Start: 03-03-2024 inject 200 mg by int ramuscular injection every week Testosterone Cypionate Active 200 MG IM every week March 03, 2024 12:00am testosterone cyp ionate (DEPOTESTOTERONE CYPIONATE) 100 mg/mL injection Inject 1 mL (100 mg total) into the appropriate muscle. Active wheat dextrin 3000 mg powder for oral solution (20 sources) Start: 02-06-2025 End: 03-22-2025 BENEFIBER SUGAR FREE, DEXTRI N, 3 gram/4 gram powd Take 3 g by mouth. 02/06/2025 Active Start: 01-29-2025 End: 02-06-2025 take 3 g by mouth in the morning BENEFIBER SUGAR FREE, DEXTRIN, 3 gram/4 gram powder take 3 (THREE) grams BY MOUTH IN THE MORNING 152 g 5 01/29/2025 02/06/2025 Discontinued (Reorder) Start: 01-28-2025 End: 01-29-2025 take 3 g [...] (Original) amitriptyline hydrochloride 10 mg oral tablet (13 sources) Tricyclic Antidepressant Start: 10-15-2024 End: 12-10-2024 [...] (Therapy completed) Start: 08-19-2019 End: 03-03-2024 take 1 tablet by mouth once daily Amitriptyline 50 mg Tablet Discontinued 50 MG PO Daily August 19, [...] 60 tablet 2 03/15/2024 09/11/2024 Discontinued (Ineffective) Enclomiphene 25 mg capsule (5 sources) Start: 03-03-2024 End: 02-18-2025 take 1 capsule by mouth two times weekly Enclomiphene 25 mg capsule Discontinued 1 CAP PO Twice a Week March 03, 2024 12:00am February 18, 2025 1:43pm gabapentin 300 mg oral capsule (1 source) [...] tablet 2 03/15/2024 09/11/2024 Discontinued (Dose adjustment) nitrofurantoin, macrocrystals 25 mg / nitrofurantoin, monohydrate 75 mg oral capsule (11 sources) Nitrofuran Antibacterial Start: 01-30-2024 End: 03-03-2024 take 1 capsule by mouth every twelve hours at mealtime Nitrofurantoin Monohyd/M-Cryst (Macrobid) 100 mg capsule Discontinued 100 MG PO Q12H January 30, 2024 12:00am March 03, 2024 11:09am Administer with a meal/food: swallow whole; do not open, crush, dissolve, or chew omeprazole 20 mg delayed release oral capsule (7 sources) Proton Pump Inhibitor Start: 12-09-2023 End: 03-15-2024 take 1 capsule by mouth in the morning omeprazole (PriLOSEC) 20 mg capsule Take 1 capsule (20 mg total) by mouth in the morning. 30 capsule 1 12/09/2023 03/15/2024 Discontinued (Therapy completed) oxyCODONE hydrochloride 5 mg oral tablet (1 source) Opioid Agonist Start: 03-19-2025 End: 03-19-2025 take 1 tablet by mouth every six hours as needed for pain Oxycodone 5 mg tablet Discontinued 5 MG PO Q6H as needed for pain 10 03March 19, 2025 March 19, 2025 11:33am Start: 03-19-2025 End: 03-19-2025 take 1 tablet by mouth every six hours as needed for pain Oxycodone 5 mg tablet Discontinued 5 MG PO Q6H as needed for pain 10 03March 19, 2025 March 19, 2025 11:33am peg 3350-sod sulf,kktn-npe-abn 178.7-7.3-0.5 gram recon soln (1 source) Start: 02-13-2024 End: 02-14-2024 peg 3350-sod sulf,cvry-cuq-ght 178.7-7.3-0.5 gram recon soln Indications: Change in [...] Nucleotide Analog NS5B Polymerase Inhibitor Epclusa Not-Taking tamsulosin hydrochloride 0.4 mg oral capsule (8 sources) alpha-Adrenergi c Catherine Start: 02-02-2024 End: 02-18-2025 take 1 capsule by mouth once daily Tamsulosin 0.4 mg capsule Discontinued 0.4 MG PO Daily March 03, 2024 12:00am February 18, 2025 1:42pm Problems Active Problems Problem Classification Problem Date Documented Date Episodic/Chronic Abdominal pain (11 sources) Periumbilical pain; Translations: [Generalized abdominal pain] Onset: 03-26-20 Episodic Administrative/social admission (1 source) Legal, financial, employment and/or socioeconomic history finding; Translations: [Distressed about housing issues] 04-02-2025 Episodic Alcohol-related disorders (20 sources) Alcohol withdrawal delirium; Translations: [Delirium tremens] Onset: 03-09-2003-09-2021 Chronic Anal and rectal conditions (8 sources) Anal fissure; Translations: [Anal fissure, unspecified] Onset: 02-29-2003-15-2024 Episodic Anxiety disorders (20 sources) Anxiety; Translations: [Anxiety disorder, unspecified] Onset: 12-29-19 15 09-11-2024 Chronic Conditions associated with dizziness or vertigo (1 source) Postural dizziness; Translations: [Dizziness and giddiness] 04-02-2025 Episodic Disorders of lipid metabolism (4 sources) Hypercholesterolemia [...] Hypertensive disorder; Translations: [Benign essential hypertension] Onset: 03-09-20 21 02-02-2024 Chronic Fluid and electrolyte disorders (7 sources) Hyperkalemia; Translations: [Dehydration] Onset: 08-30-19 17 03-03-2024 Episodic Fracture of lower limb (15 sources) Displaced fracture of fifth metatarsal bone, right foot, initial encounter for closed fracture; Translations: [Fracture of fifth metatarsal bone of right foot] Onset: 03-13-20 02-18-2025 Episodic Genitourinary symptoms and ill-defined conditions (12 sources) Acute retention of urine ; Translations: [...] disorder, recurrent, moderate] Onset: 03-09-20 Resolved : 02-18-2003-09-2021 Chronic Other connective tissue disease (2 sources) Disorder of muscle; Translations: [Other specified disorders of muscle] Onset: 01-10-20 Episodic Other connective tissue disease (8 sources) Pelvic floor dysfunction; Translations: [Other specified disorders of muscle] 01-09-2025 Episodic Other connective tissue disease (1 source) Other specified disorders of muscle; Translations: [Pelvic floor dysfunction] Onset: 02-29-20 Episodic Other endocrine disorders (16 sources) Male hypogonadism; Translations: [Testicular hypofunction] Onset: 10-12-19 22 12-10-2024 Chronic Other endocrine disorders (2 sources) Testicular hypofunction; Translations: [Testicular hypofunction] Onset: 12-11-19 Chronic Other gastrointestinal disorders (20 sources) Irritable bowel syndrome; Translations: [Mixed irritable bowel syndrome] Onset: 09-11-19 25 09-11-2024 Chronic Other gastrointestinal disorders (20 sources) Chronic idiopathic constipation; Translations: [Chronic idiopathic constipation] Onset: 08-04-20 22 08-04-2022 Chronic Other gastrointestinal disorders (1 source) Irritable bowel syndrome characterized by constipation; Translations: [Irritable bowel syndrome with constipation] 12-09-2023 Chronic Other gastrointestinal disorders (2 sources) Mixed irritable bowel syndrome; Translations: [Mixed irritable bowel syndrome] Onset: 09-11-19 Chronic Other gastrointestinal disorders (6 sources) Acute constipation; Translations: [Constipation, unspecified] 03-03-2024 Episodic Other gastrointestinal disorders (3 sources) Increased frequency of defecation 02-07-2024 Episodic Other gastrointestinal disorders (3 sources) Constipation, unspecified; Translations: [Constipation, unspecified] Onset: 01-09-20 Episodic Other gastrointestinal disorders (2 sources) Constipation by outlet obstruction; Translations: [Outlet dysfunction constipation] Onset: 01-10-20 Episodic Other gastrointestinal disorders (2 sources) Swollen abdomen; Translations: [Abdominal distension (gaseous)] Onset: 01-10-20 Episodic Other gastrointestinal disorders (2 sources) Abdominal bloating 01-09-2025 Episodic Other gastrointestinal disorders (10 sources) Constipation; Translations: [Outlet dysfunction constipation] 01-09-2025 [...] sources) Overweight; Translations: [OVERWEIGHT] Onset: 03-29-20 Episodic Residual codes; unclassified (20 sources) Restlessness and agitation; Translations: [Restlessness and agitation] Onset: 03-07-2003-07-2021 Chronic Schizophrenia and other psychotic disorders (20 sources) Paranoid disorder; Translations: [Delusional disorders] Onset: 12-09-19 24 08-03-2023 Chronic Comment on above: Problem List clean-u p per request of Phys. EHR Cmte Screening and history of mental health and substance abuse codes (3 sources) Ex-smoker; Translations: [Personal history of nicotine dependence] Onset: 12-11-19 25 12-10-2024 Episodic Substance-related disorders (20 sources) Nicotine dependence, cigarettes, uncomplicated; Translations: [Polysubstance abuse ] Onset: 03-29-20 22 08-03-2023 Chronic Comment on above: Problem List clean-u p per request of Phys. EHR Cmte Unclassified (2 sources) Unknown / UNK(Unknown) Onset: 08-30-19 Unclassified (3 sources) Patient encounter status 02-07-2024 Unclassified (1 source) change in bowel habits Onset: 02-17-20 24 Unclassified (18 sources) Hypogonadism; Translations: [Hypogonadism] Onset: 10-12-1908-04-2022 Unclassified (1 source) Annual Exam Onset: 12-11-19 Unclassified (3 sources) Rectum finding 02-28-2025 Unclassified (2 sources) Chronic rectal pain 04-03-2025 Unclassified (1 source) Established Patient Onset: 04-02-20 Past or Other Problems Problem Classification Problem [...] initial encounter] Onset: 12-29-2015 08-04-2022 Episodic Other nutritional; endocrine; and metabolic disorders (16 sources) Overweight; Translations: [Overweight] Onset: 12-10-2024 12-10-2024 Episodic Other screening for suspected conditions (not [...] Test Name Value Interpretation Reference Range Facility XR foot RT 2Von 03-20-2025 XR foot RT 2V [facility] [place] [address] XRay Report Signed Patient: Chai Arnold MR#: [id number] 2 : 1970 Acct:[id number] Age/Sex: 54 / M ADM Date: 03/19/25 Loc: [place] Room: Type: [facility] Attending Dr: Ehsan Avina DO Copies to: Ehsan Avina DO Ordering Provider: Ehsan Avina DO Date of Service: 03/19/25 XR/XR foot RT 2V: IM SCREW RT FOOT 5TH METATARSAL XR foot RT 2V 03/19/2025 3:57 PM SIGNS AND SYMPTOMS: IM SCREW RT FOOT 5TH METATARSAL PROTOCOL: Intraoperative views of the right foot COMPARISON: 03/13/2025 FINDINGS: Intraoperative views of the right foot demonstrate screw fixation of the fifth metatarsal fracture. Cumulative Air Kerma in mGy: 3.52 mGy XR/XR foot RT 2V IMPRESSION: Intraoperative views of the right foot demonstrate screw fixation of the fifth metatarsal fracture. Impression dictated by: Dante Lisa M.D. 03/20/2025 8:49 AM Dictation Location: [place] [address] Transcribed By: [facility] 03/20/25 0849 Dictated By: Dante Lisa II, MD 03/20/25 0849 Signed By: 03/20/25 0849 Normal [facility] Amphetamine Screen Ql (U)Ord ered By: Nirmal Bruno on 03-19-2025 Amphetamines Ql (U) Negative Negative [facility] Barbiturates [Presence] in U rine by Screen methodOrdered By: Nirmal Bruno on 03-19-2025 Barbiturates Screen Ql (U) Negative Negative [facility] Benzodiazepines Screen Ql (U )Ordered By: Nirmal Bruno on 03-19-2025 Benzodiazepines Ql (U) Positive High Negative [facility] Benzoylecgonine [Presence] i n Urine by Screen methodOrdered By: Nirmal Bruno on 03-19-2025 Benzoylecgonine Screen Ql (U) Negative Negative [facility] Cannabinoids [Presence] in U rine by Screen methodOrdered By: Nirmal Bruno on 03-19-2025 Cannabinoids Screen Ql (U) Negative Negative [facility] Comment on above: These are unconfirme d results and should not be used for legal purposes. Drug Cut-Off Concentration: AMPH 1000 ng/mL MAXIMILIAN 200 ng/mL NORA 200 ng/mL COCM 300 ng/mL OP 300 ng/mL PCP 25 ng/mL THC 20 ng/mL Drug Screen,Urineon 03-19-20 Amphetamine Screen,Urine Negative Normal Negative [facility] Comment on above: Performed By: #### U RDS #### [address] Barbiturate Screen,Urine Negative Normal Negative [facility] Comment on above: Performed By: #### U RDS #### [address] Benzodiazepines Screen,Urine Positive Normal Negative [facility] Comment on above: Performed By: #### U RDS #### [address] Cannabinoid Screen,Urine Negative Normal Negative [facility] Comment on above: Result Comment: Thes e are unconfirmed results and should not be used for legal purposes. Drug Cut-Off Concentration: AMPH 1000 ng/mL MAXIMILIAN 200 ng/mL NORA 200 ng/mL COCM 300 ng/mL OP 300 ng/mL PCP 25 ng/mL THC 20 ng/mL PERFORMED BY: [place] [address] PATHOLOGIST BOOSTER STATION OPERATOR BROWN OLIVIER M.D. Performed By: #### U RDS #### [address] Cocaine Screen,Urine Negative Normal Negative [facility] Comment on above: Performed By: #### U RDS #### [place] [address] [place] Opiate Screen,Urine Positive Normal Negative [facility] Comment on above: Performed By: #### U RDS #### [place] [address] [place] Phencyclidine Screen,Urine Negative Normal Negative [facility] Comment on above: Performed By: #### U RDS #### [facility] [address] Opiates [Presence] in Urine by Screen methodOrdered By: Nirmal Bruno on 03-19-2025 Opiates Screen Ql (U) Positive High Negative [facility] Phencyclidine Screen Ql (U)O rdered By: Nirmal Bruno on 03-19-2025 Phencyclidine Ql (U) Negative Negative [facility] Alanine aminotransferase [En zymatic activity/volume] in Serum or PlasmaOrdered By: Ehsan Avina on 03-18-2025 ALT [Catalytic activity/Vol] 15 U/L Normal 7-[address] [facility] Comment on above: Performed By: #### C MP wRFX A1C, CBC #### [facility] [address] [place] [address] [place] Albumin [Mass/volume] in Ser um or Plasma by Bromocresol green (BCG) dye binding methoOrdered By: Ehsan Avina on 03-18-2025 Albumin BCG dye [Mass/Vol] 4.2 g/dL 3.5-5.[address] [facility] Alkaline phosphatase [Enzyma tic activity/volume] in Serum or PlasmaOrdered By: Ehsan Avina on 03-18-2025 ALP [Catalytic activity/Vol] 116 U/L High 34-[address] [facility] Comment on above: Result Comment: PERF ORMED BY: [place] [address] PATHOLOGIST BOOSTER STATION OPERATOR BROWN OLIVIER M.D. Performed By: #### C MP wRFX A1C, CBC #### [facility] [address] [place] [address] [place] Aspartate aminotransferase [ Enzymatic activity/volume] in Serum or PlasmaOrdered By: Ehsan Avina on 03-18-2025 AST [Catalytic activity/Vol] 20 U/L Normal 13-[address] [facility] Comment on above: Performed By: #### C MP wRFX A1C, CBC #### [facility] [address] [place] [address] [place] Basophils [#/volume] in Bloo d by Automated countOrdered By: Ehsan Avina on 03-18-2025 Basophils (Bld) [#/Vol] 0.1 10*3/uL Normal 0.0-0.[address] [facility] Comment on above: Result Comment: PERF ORMED BY: [place] [address] PATHOLOGIST BOOSTER STATION OPERATOR BROWN OLIVIER M.D. Performed By: #### C MP wRFX A1C, CBC #### [facility] [address] Basophils/100 leukocytes in Blood by Automated countOrdered By: Ehsan Avina on 03-18-2025 Basophils/100 WBC (Bld) 0.9 % Normal . [facility] Comment on above: Performed By: #### C MP wRFX A1C, CBC #### [place] [address] [place] Bilirubin.total [Mass/volume ] in Serum or PlasmaOrdered By: Ehsan Avina on 03-18-2025 Bilirubin [Mass/Vol] 1.0 mg/dL Normal 0.3-1.0 [facility] Comment on above: Performed By: #### C MP wRFX A1C, CBC #### [facility] [address] [place] [address] CMP with reflex to A1Con Albumin [Mass/Vol] 4.2 g/dL Normal 3.5-5.7 [facility] Comment on above: Performed By: #### C MP wRFX A1C, CBC #### [place] [address] [place] GFR/1.73 sq M.predicted MDRD (S/P/Bld) [Vol rate/Area] mL/min/{1.73_m2} Normal [facility] Comment on above: Performed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 treatment. He states that his bowel function was previously normal, with daily, complete, and satisfying bowel movements prior to this event. The patient has undergone extensive evaluation and management by multiple providers, including colonoscopy in January of the previous year, which revealed two polyps, minor diverticulosis, and perianal swelling. He has had an appendectomy but no other abdominal or pelvic surgeries. He has been prescribed various topical ointments for perianal irritation, including a compounded preparation from a pharmacy in [place], and previously used hydrocortisone. He has not undergone formal pelvic floor physical therapy. He expresses significant distress and frustration regarding the impact of his symptoms on his quality of life, stating that he is unable to work due to fear of frequent, urgent bowel movements and is concerned about his ability to attend school, as he anticipates needing to use the restroom every half hour. He reports that his symptoms have led to social isolation and increased stress, particularly after being confined at home for six months following his injuries. He notes that previous long-term use of alprazolam was discontinued abruptly, resulting in a psychiatric hospitalization, and that subsequent trials of BuSpar, sertraline, and hydroxyzine were ineffective for his anxiety related to his bowel symptoms. He denies depression except as it relates to his ongoing gastrointestinal issues. Hx of Surgery: appendectomy PMH: BPH, benzodiazepine use x 15 years, HTN, Anxiety GI provider: Caitlyn Previous Testing Results include: Colonoscopy: Yes Date:01/2024 Findings: Terminal ileum was not visualized and was: Not evaluated Cecum/Ascending colon: normal Transverse colon: normal Descending/Sigmoid colon: A tiny 2 mm flat polyp was noted at 55 cm and removed with cold biopsy. A 2nd larger 5 mm sessile polyp was noted at 35 cm and removed with a polyp snare. Throughout the sigmoid colon was moderate diverticulosis. Rectum/Anus: examined in normal and retroflexed positions and was normal except for some prominent veins, but no bleeding or masses. Withdrawal Time was (minutes): 12 The colon was decompressed and the scope was removed. The patient tolerated the procedure well. Manometry: today Defecography: No No past medical history on file. No pa (more content not included)... Normal [facility] CNPNon 02-11-2025 CNPN Telephone ([facility]) ---- CHAI ARNOLD ([id number]) 1970 M Date Time Provider Department 02/11/25 ASHLEY HAYWARD [facility] During your visit today, we recorded the following information about you: Chelle Christianson 02/11/2025 9:39 AM Signed Recevied referral from Satish Left vm fot pt referral for botox injections Allergies As of Date: 02/11/2025 (Not on File) Date Reviewed: Never Reviewed Reason for Visit: Appointment [186] Cmt: Left vm we received referral for botox injections Problem List As Of Date: 02/11/2025 (None) Encounter Status:Closed by CHELLE CHRISTIANSON on 02/11/25 Normal [facility] Ambulatory Visit Summaryon 0 01-24-2025 Ambulatory Visit Summary Ambulatory Visit Summary CHAI ARNOLD :1970 Visit Date:01/24/2025 Ambulatory Visit Instructions Your Diagnosis Constipation Constipation by outlet dysfunction Pelvic floor dysfunction Bloating Stress-related physiological response affecting medical condition Drug dependence Your Care Team Attending Physician - Caitlyn CHAVIS, Vivian Lance Primary Care Physician - CISCO BONILLA DO This Is Your Medications List plecanatide [...] Follow-Up Appointments 2024 10:45 AM EDT With: Caitlyn CHAVIS, Vivian Lance Where: [facility] [address] [place], [place] [address]- Medications What How Much When Why Instructions New plecanatide (Trulance 3 mg oral tablet) 1 Tablets By Mouth Every day Constipation Constipation by outlet dysfunction Pelvic floor dysfunction Bloating Stress-related physiological response affecting medical condition Drug dependence Refills: 4 Pickup at [facility] Unchanged amlodipine (amLODIPine 5 mg Tab) [...] physician if questions or concerns Pharmacy Information [facility]: [address] [place] [phone] Allergies No Known Medication Allergies Problems Ongoing [...] choosing us for your care. Normal [facility] Gastroenterology Office/Clin ic Noteon 01-24-2025 Gastroenterology Office/Clinic [...] him. Will refer to GI psychology at [facility] Advised to use squatty potty and massage [...] days could not see a provider at [facility] Review of Systems PHQ Score Initial Depression [...] Daily, # 30 tab(s), Refills(s) 4, Pharmacy: [facility], 173, cm, 01/24/25 10:35:00 EDT, Height/Length Dosing, 86.3, kg, 01/24/25 10:35:00 EDT, Weight Dosing 2. Constipation by outlet dysfunction (K59.02: Outlet dysfunction constipation) Ordered: plecanatide, 3 mg = 1 tab(s), Oral, Daily, # 30 tab(s), Refills(s) 4, Pharmacy: [facility], 173, cm, 01/24/25 10:35:00 EDT, Height/Length Dosing, 86.3, kg, 01/24/25 10:35:00 EDT, Weight Dosing 3. Pelvic floor dysfunction (M62.89: Other specified disorders of muscle) Ordered: plecanatide, 3 mg = 1 tab(s), Oral, Daily, # 30 tab(s), Refills(s) 4, Pharmacy: [facility], 173, cm, 01/24/25 10:35:00 EDT, Height/Length Dosing, 86.3, kg, 01/24/25 10:35:00 EDT, Weight Dosing 4. Bloating (R14.0: Abdominal distension (gaseous)) Ordered: plecanatide, 3 mg = 1 tab(s), Oral, Daily, # 30 tab(s), Refills(s) 4, Pharmacy: [facility], 173, cm, 01/24/25 10:35:00 EDT, Height/Length Dosing, 86.3, kg, 01/24/25 10:35:00 EDT, Weight Dosing 5. Stress-related physiological response affecting medical condition (F54: Psychological and behavioral factors associated with disorders or diseases classified elsewhere) Ordered: (more content not included)... Normal [facility] Comment on above: Result Comment: Elec tronically Signed By: Caitlyn CHAVIS, Vivian Larios.br\Date and Time Signed: 01/24/25 10:46 EDT Ambulatory Visit Summaryon 0 01-09-2025 Ambulatory Visit Summary Ambulatory Visit Summary CHAI ARNOLD :1970 Visit Date:01/09/2025 Ambulatory Visit Instructions Your Diagnosis Constipation Constipation by outlet dysfunction Pelvic floor dysfunction Bloating Stress-related physiological response affecting medical condition Your Care Team Attending Physician - Caitlyn CHAVIS, Vivian Lance Primary Care Physician - CISCO BONILLA DO This Is Your Medications List Contact [...] Someone Will Contact You Regarding These Appointments [facility] External Ambulatory Referral, Gastroenterology, 01/09/25 13:16:00 EDT, [...] choosing us for your care. Normal Sand[facility] Gastroenterology Office/Clin ic Noteon 01-09-2025 Gastroenterology Office/Clinic Note Gastroenterology Office/Clinic Note Chief Complaint Alternating bowels, bloating severe cramping and anxiety HPI Staff NEW, 54 year old male who presents today for a referral by Dr Bonilla for complaints of IBS with a change [...] him. Will refer to GI psychology at [facility] Advised to use squatty potty and massage [...] 11/18/2020 Recorded (more content not included)... Normal [facility] Comment on above: Result Comment: Elec tronically Signed By: Caitlyn CHAVIS, Vivian Lance\.br\Date and Time Signed: 01/09/25 13:17 EDT COMPLETE BLOOD COUNTon 12-10 Erythrocyte distribution width (RBC) [Ratio] 13.5 % Normal 11.5-15.0 [facility] Comment on above: Performed By: #### C BC, CMP, 2498-4, 48965-9, 2857-1, TSHR #### [facility] ([id number]) [address], [address] [place] [address] Hematocrit (Bld) [Volume fraction] 48.2 % Normal 39-49 [facility] Comment on above: Performed By: #### C BC, CMP, 2498-4, 94904-0, 2857-1, TSHR #### [facility] ([id number]) [address], [address] [place] [address] Hemoglobin (Bld) [Mass/Vol] 16.1 g/dL Normal 13.0-17.0 [facility] Comment on above: Performed By: #### C BC, CMP, 2498-4, 05198-4, 2857-1, TSHR #### [facility] ([id number]) [address], [address] [place] [address] MCH (RBC) [Entitic mass] 31.9 pg Normal 27-34 [facility] Comment on above: Performed By: #### C BC, CMP, 2498-4, 94599-8, 2857-1, TSHR #### [facility] ([id number]) [address], [address] [place] [address] MCHC (RBC) [Mass/Vol] 33.4 g/dL Normal 32-36 [facility] Comment on above: Performed By: #### C BC, CMP, 2498-4, 00170-0, 2857-1, TSHR #### [facility] ([id number]) [address], [address] [place] [address] MCV (RBC) [Entitic vol] 96 fL Normal 80-100 [facility] Comment on above: Performed By: #### C BC, CMP, 2498-4, 47862-6, 2857-1, TSHR #### [facility] ([id number]) [address], [facility] [address] [place] [address] Platelet mean volume (Bld) [Entitic vol] 9.6 fL Normal 7-12 [facility] Comment on above: Performed By: #### C BC, CMP, 2498-4, 32785-6, 2857-1, TSHR #### [facility] ([id number]) [address], [facility] [address] [place] [address] Platelets (Bld) [#/Vol] 184 10*3/uL Normal 150-450 [facility] Comment on above: Performed By: #### C BC, CMP, 2498-4, 55497-6, 2857-1, TSHR #### [facility] ([id number]) [address], [address] [place] [address] RBC COUNT 5.04 X10E12/L Normal 4.10-5.70 [facility] Comment on above: Performed By: #### C BC, CMP, 2498-4, 56394-2, 2857-1, TSHR #### [facility] ([id number]) [address], [address] [place] [address] WBC (Bld) [#/Vol] 5.2 10*3/uL Normal 4.0-11.0 [facility] Comment on above: Performed By: #### C BC, CMP, 2498-4, 40893-1, 2857-1, TSHR #### [facility] ([id number]) [address], [address] [place] [address] COMPREHENSIVE METABOLIC PANE Vern 12-10-2024 Albumin [Mass/Vol] 4.5 g/dL Normal 3.2-5.3 [facility] Comment on above: Performed By: #### C BC, CMP, 2498-4, 64515-2, 2857-1, TSHR #### [facility] ([id number]) [address], [address] [place] [address] ALP [Catalytic activity/Vol] 101 U/L Normal 39-130 [facility] Comment on above: Performed By: #### C BC, CMP, 2498-4, 66152-6, 2857-1, TSHR #### [facility] ([id number]) [address], [address] [place] [address] ALT [Catalytic activity/Vol] 38 U/L Normal 0-40 [facility] Comment on above: Performed By: #### C BC, CMP, 2498-4, 95265-1, 2857-1, TSHR #### [facility] ([id number]) [address], [address] [place] [address] Anion gap [Moles/Vol] 11 mmol/L Normal 5-15 [facility] Comment on above: Performed By: #### C BC, CMP, 2498-4, 18003-4, 2857-1, TSHR #### [facility] ([id number]) [address], [address] [place] [address] AST [Catalytic activity/Vol] 28 U/L Normal 0-41 [facility] Comment on above: Performed By: #### C BC, CMP, 2498-4, 01196-0, 2857-1, TSHR #### [facility] ([id number]) [address], [address] [place] [address] Bilirubin [Mass/Vol] 0.6 mg/dL Normal 0.3-1.2 [facility] Comment on above: Performed By: #### C BC, CMP, 2498-4, 94116-1, 2857-1, TSHR #### [facility] ([id number]) [address], [address] [place] [address] Calcium [Mass/Vol] 9.6 mg/dL Normal 8.5-10.5 [facility] Comment on above: Performed By: #### C BC, CMP, 2498-4, 02482-4, 2857-1, TSHR #### [facility] ([id number]) [address], [address] [place] [address] Chloride [Moles/Vol] 105 mmol/L Normal 98-109 [facility] Comment on above: Performed By: #### C BC, CMP, 2498-4, 33998-6, 2857-1, TSHR #### [facility] ([id number]) [address], [address] [place] [address] CO2 [Moles/Vol] 26 mmol/L Normal 22-32 [facility] Comment on above: Performed By: #### C BC, CMP, 2498-4, 02158-0, 2857-1, TSHR #### [facility] ([id number]) [address], [address] [place] [address] Creatinine [Mass/Vol] 0.94 mg/dL Normal 0.60-1.30 [facility] Comment on above: Result Comment: METH OD TRACEABLE TO IDMS STANDARD Performed By: #### C BC, CMP, 2498-4, 01258-6, 2857-1, TSHR #### [facility] ([id number]) [address], [address] [place] [address] eGFR (CKD-EPI) NON-RACE DEPENDENT >90 Normal >59 [facility] Comment on above: Result Comment: Reported eGFR is based on the CKD-EPI 2020 equation that does not use a race coefficient. Performed By: #### C BC, CMP, 2498-4, 73508-5, 2857-1, TSHR #### [facility] ([id number]) [address], [address] [place] [address] Glucose [Mass/Vol] 86 mg/dL Normal 65-99 [facility] Comment on above: Performed By: #### C BC, CMP, 2498-4, 95421-2, 2857-1, TSHR #### [facility] ([id number]) [address] [address] [place] [address] Potassium [Moles/Vol] 4.2 mmol/L Normal 3.5-5.0 [facility] Comment on above: Performed By: #### C BC, CMP, 2498-4, 81320-5, 2857-1, TSHR #### [facility] ([id number]) [address] [address] [place] [address] Protein [Mass/Vol] 7.4 g/dL Normal 6.0-8.0 [facility] Comment on above: Performed By: #### Remberto BC, CMP, 2498-4, 78387-2, 2857-1, TSHR #### [facility] ([id number]) [address] [address] [place] [address] Sodium [Moles/Vol] 142 mmol/L Normal 134-146 [facility] Comment on above: Performed By: #### C BC, CMP, 2498-4, 66354-9, 2857-1, TSHR #### [facility] ([id number]) [address] [address] [place] [address] Urea nitrogen [Mass/Vol] 13 mg/dL Normal 5-23 [facility] Comment on above: Performed By: #### Remberto BC, CMP, 2498-4, 44733-5, 2857-1, TSHR #### [facility] ([id number]) [address], [address] [place] [address] IRONon 12-10-2024 Iron [Mass/Vol] 184 ug/dL Normal 50-212 [facility] Comment on above: Performed By: #### C BC, CMP, 2498-4, 91956-2, 2857-1, TSHR #### [facility] ([id number]) [address], [address] [place] [address] Lipid 1996 panelon Cholesterol [Mass/Vol] 183 mg/dL Normal 150-200 [facility] Comment on above: Performed By: #### Remberto BC, CMP, 2498-4, 30434-8, 2857-1, TSHR #### [facility] ([id number]) [address], [address] [place] [address] Cholesterol in HDL [Mass/Vol] 38 mg/dL Low >39 [facility] Comment on above: Result Comment: HDL <40 mg/dL - High Risk HDL > or = 40mg/dL- Desirable HDL >60 mg/dL - Negative Risk Performed By: #### C BC, CMP, 2498-4, 01147-1, 2857-1, TSHR #### [facility] ([id number]) [address], [address] [place] [address] Cholesterol in LDL [Mass/Vol] 121 mg/dL Normal <130 [facility] Comment on above: Result Comment: LDL <100 mg/dL - Desirable LDL >160 mg/dL - High Risk Performed By: #### C BC, CMP, 2498-4, 36500-2, 2857-1, TSHR #### [facility] ([id number]) [address] [address] Cholesterol in VLDL [Mass/Vol] 24 mg/dL Normal 0-30 [facility] Comment on above: Performed By: #### C BC, CMP, 2498-4, 40937-0, 2857-1, TSHR #### [facility] ([id number]) [address] [address] CHOLESTEROL:HDL 4.8 Normal 1.0-5.0 [facility] Comment on above: Performed By: #### C BC, CMP, 2498-4, 12706-8, 2857-1, TSHR #### [facility] ([id number]) [address] [address] Triglyceride [Mass/Vol] 119 mg/dL Normal 27-150 P [facility] Comment on above: Performed By: #### C BC, CMP, 2498-4, 65014-0, 2857-1, TSHR #### [facility] ([id number]) [address] [address] Prostate specific Ag [Mass/V ol]on 12-10-2024 PSA SCREEN 0.57 ng/mL Normal 0.00-4.00 [facility] Comment on above: Result Comment: The method used for this test is Graciela Hamilton DXI chemiluminescent immunoassay. Values obtained by different assay methods cannot be used interchangeably. Performed By: #### C BC, CMP, 2498-4, 20805-7, 2857-1, TSHR #### [facility] ([id number]) [address] [address] TSH WITH REFLEXon 12-10-2024 TSH 1.34 uIU/mL Normal 0.49-4.67 [facility] Comment on above: Performed By: #### C BC, CMP, 2498-4, 97573-9, 2857-1, TSHR #### [facility] ([id number]) [address] [address] COMPLETE BLOOD COUNTon 09-11 Erythrocyte distribution width (RBC) [Ratio] 13.4 % Normal 11.5-15.0 [facility] Comment on above: Performed By: #### Remberto CRANDALL, CMP, 2857-1, TSHR #### [facility] ([id number]) [address], [address] [address] Hematocrit (Bld) [Volume fraction] 47.4 % Normal 39-49 [facility] Comment on above: Performed By: #### Remberto CRANDALL, CMP, 2857-1, TSHR #### [facility] ([id number]) [address], [address] [address] Hemoglobin (Bld) [Mass/Vol] 16.4 g/dL Normal 13.0-17.0 [facility] Comment on above: Performed By: #### Remberto CRANDALL, CMP, 2857-1, TSHR #### [facility] ([id number]) [address], [address] [address] MCH (RBC) [Entitic mass] 32.4 pg Normal 27-34 [facility] Comment on above: Performed By: #### C BC, CMP, 2857-1, TSHR #### [facility] ([id number]) [address], [address] [address] MCHC (RBC) [Mass/Vol] 34.6 g/dL Normal 32-36 [facility] Comment on above: Performed By: #### Remberto BC, CMP, 2857-1, TSHR #### [facility] ([id number]) [address], [address] [place] [address] MCV (RBC) [Entitic vol] 94 fL Normal 80-100 [facility] Comment on above: Performed By: #### Remberto BC, CMP, 2857-1, TSHR #### [facility] ([id number]) [address], [facility] [address] [place] [address] Platelet mean volume (Bld) [Entitic vol] 9.4 fL Normal 7-12 [facility] Comment on above: Performed By: #### Remberto CRANDALL CMP, 2857-1, TSHR #### [facility] ([id number]) [address] [address] Platelets (Bld) [#/Vol] 235 10*3/uL Normal 150-450 [facility] Comment on above: Performed By: #### Remberto CRANDALL CMP, 2857-1, TSHR #### [facility] ([id number]) [address] [address] [place] [address] RBC COUNT 5.06 X10E12/L Normal 4.10-5.70 [facility] Comment on above: Performed By: #### Remberto CRANDALL CMP, 2857-1, TSHR #### [facility] ([id number]) [address] [address] [place] [address] WBC (Bld) [#/Vol] 7.0 10*3/uL Normal 4.0-11.0 [facility] Comment on above: Performed By: #### Remberto CRANDALL, CMP, 2857-1, TSHR #### [facility] ([id number]) [address], [address] [place] [address] COMPREHENSIVE METABOLIC PANE Vern 09-11-2024 Albumin [Mass/Vol] 4.5 g/dL Normal 3.2-5.3 [facility] Comment on above: Performed By: #### C BC, CMP, 2857-1, TSHR #### [facility] ([id number]) [address], [address] [place] [address] ALP [Catalytic activity/Vol] 133 U/L High 39-130 [facility] Comment on above: Performed By: #### C BC, CMP, 2857-1, TSHR #### [facility] ([id number]) [address], [address] [place] [address] ALT [Catalytic activity/Vol] 20 U/L Normal 0-40 [facility] Comment on above: Performed By: #### C BC, CMP, 2857-1, TSHR #### [facility] ([id number]) [address], [address] [place] [address] Anion gap [Moles/Vol] 10 mmol/L Normal 5-15 [facility] Comment on above: Performed By: #### C BC, CMP, 2857-1, TSHR #### [facility] ([id number]) [address], [address] [place] [address] AST [Catalytic activity/Vol] 26 U/L Normal 0-41 [facility] Comment on above: Performed By: #### Remberto BC, CMP, 2857-1, TSHR #### [facility] ([id number]) [address], [address] [place] [address] Bilirubin [Mass/Vol] 0.8 mg/dL Normal 0.3-1.2 [facility] Comment on above: Performed By: #### C BC, CMP, 2857-1, TSHR #### [facility] ([id number]) [address], [address] [place] [address] Calcium [Mass/Vol] 9.6 mg/dL Normal 8.5-10.5 [facility] Comment on above: Performed By: #### C BC, CMP, 2857-1, TSHR #### [facility] ([id number]) [address] [place] [address] Chloride [Moles/Vol] 103 mmol/L Normal 98-109 [facility] Comment on above: Performed By: #### Remberto CRANDALL, CMP, 2857-1, TSHR #### [facility] ([id number]) [address], [address] [place] [address] CO2 [Moles/Vol] 27 mmol/L Normal 22-32 [facility] Comment on above: Performed By: #### Remberto CRANDALL CMP, 2857-1, TSHR #### [facility] ([id number]) [address], [address] [place] [address] Creatinine [Mass/Vol] 1.05 mg/dL Normal 0.60-1.30 [facility] Comment on above: Result Comment: METH OD TRACEABLE TO IDMS STANDARD Performed By: #### Remberto CRANDALL CMP, 2857-1, TSHR #### [facility] ([id number]) [address], [address] [place] [address] GFR/1.73 sq M.predicted among non-blacks MDRD (S/P/Bld) [Vol rate/Area] 83 mL/min/{1.73_m2} Normal >59 [facility] Comment on above: Result Comment: Reported eGFR is based on the CKD-EPI 2020 equation that does not use a race coefficient. Performed By: #### Remberto CRANDALL, [place], 2857-1, TSHR #### [facility] ([id number]) [address], [address] [place] [address] Glucose [Mass/Vol] 87 mg/dL Normal 65-99 [facility] Comment on above: Performed By: #### Remberto CRANDALL, CMP, 2857-1, TSHR #### [facility] ([id number]) [address], [address] [place] [address] Potassium [Moles/Vol] 3.9 mmol/L Normal 3.5-5.0 [facility] Comment on above: Performed By: #### Remberto CRANDALL CMP, 2857-1, TSHR #### [facility] ([id number]) [address], [address] [place] [address] Protein [Mass/Vol] 7.3 g/dL Normal 6.0-8.0 [facility] Comment on above: Performed By: #### Remberto CRANDALL CMP, 2857-1, TSHR #### [facility] ([id number]) [address] [place] [address] Sodium [Moles/Vol] 140 mmol/L Normal 134-146 [facility] Comment on above: Performed By: #### Remberto CRANDALL CMP, 2857-1, TSHR #### [facility] ([id number]) [address] [address] Urea nitrogen [Mass/Vol] 6 mg/dL Normal 5-23 [facility] Comment on above: Performed By: #### Remberto CRANDALL CMP, 2857-1, TSHR #### [facility] ([id number]) [address], [address] [address] Prostate specific Ag [Mass/V ol]on 09-11-2024 PSA SCREEN 0.71 ng/mL Normal 0.00-4.00 [facility] Comment on above: Result Comment: The method used for this test is Graciela Hamilton DXI chemiluminescent immunoassay. Values obtained by different assay methods cannot be used interchangeably. Performed By: #### Remberto CRANDALL, CMP, 2857-1, TSHR #### [facility] ([id number]) [address] [address] TSH WITH REFLEXon 09-11-2024 TSH 1.29 uIU/mL Normal 0.49-4.67 [facility] Comment on above: Performed By: #### Remberto CRANDALL, CMP, 2857-1, TSHR #### [facility] ([id number]) [address] [place] [address] CBC AND AUTO DIFFon 05-15-20 ABSOLUTE BASOPHIL 0.1 X10E9/L Normal 0.0-0.2 [facility] Comment on above: Performed By: #### C BCA, CMP, 3040-3, 19653-5 #### [facility] ([id number]) [address] [place] [address] ABSOLUTE NEUTROPHIL 5.7 X10E9/L Normal 1.5-6.6 [facility] Comment on above: Performed By: #### C BCA, CMP, 3040-3, 61133-4 #### [facility] ([id number]) [address] [place] [address] Basophils/100 WBC (Bld) 0.7 % Normal [facility] Comment on above: Performed By: #### C BCA, CMP, 3040-3, 80876-3 #### [facility] ([id number]) [address] [place] [address] Eosinophils (Bld) [#/Vol] 0.4 10*3/uL Normal 0.0-0.4 [facility] Comment on above: Performed By: #### C BCA, CMP, 3040-3, 39234-0 #### [facility] ([id number]) [address] [place] [address] Eosinophils/100 WBC (Bld) 4.9 % Normal [facility] Comment on above: Performed By: #### C BCA, CMP, 3040-3, 06995-2 #### [facility] ([id number]) [address] [place] [address] Erythrocyte distribution width (RBC) [Ratio] 12.3 % Normal 11.5-15.0 [facility] Comment on above: Performed By: #### C ARASH CMP, 0-3, 64197-6 #### [facility] ([id number]) [address] [place] [address] Hematocrit (Bld) [Volume fraction] 41.8 % Normal 39-49 [facility] Comment on above: Performed By: #### C ARASH [facility], 3039-3, 56692-5 #### [facility] ([id number]) [address] [place] [address] Hemoglobin (Bld) [Mass/Vol] 15.1 g/dL Normal 13.0-17.0 [facility] Comment on above: Performed By: #### Remberto ANTOINE CMP, 3039-3, 71501-4 #### [facility] ([id number]) [address] [place] [address] Lymphocytes (Bld) [#/Vol] 1.4 10*3/uL Normal 1.0-3.5 [facility] Comment on above: Performed By: #### C ARASH [facility], 3, 01148-6 #### [facility] ([id number]) [address] [place] [address] Lymphocytes/100 WBC (Bld) 17.3 % Normal [facility] Comment on above: Performed By: #### Remberto ANTOINE CMP, 3, 00333-1 #### [facility] ([id number]) [address] [place] [address]853 MCH (RBC) [Entitic mass] 32.3 pg Normal 27-34 [facility] Comment on above: Performed By: #### C ARASH CMP, 3039-3, 39021-6 #### [facility] ([id number]) [address] [place] [address] 29396 MCHC (RBC) [Mass/Vol] 36.0 g/dL Normal 32-36 [facility] Comment on above: Performed By: #### Remberto ANTOINE, CMP, 3040-3, 09180-8 #### [facility] ([id number]) [address] [place] [address] 11747 MCV (RBC) [Entitic vol] 90 fL Normal 80-100 [facility] Comment on above: Performed By: #### Remberto ANTOINE CMP, 3040-3, 75064-2 #### [facility] ([id number]) [address] [place] [address] 12554 Monocytes (Bld) [#/Vol] 0.6 10*3/uL Normal 0-0.9 [facility] Comment on above: Performed By: #### Remberto ANTOINE CMP, 3040-3, 41822-7 #### [facility] ([id number]) [address] [place] [address] 10511 Monocytes/100 WBC (Bld) 7.6 % Normal [facility] Comment on above: Performed By: #### Remberto ANTOINE, CMP, 3040-3, 82186-2 #### [facility] ([id number]) [address] [place] [address]995 Neutrophils/100 WBC (Bld) 69.5 % Normal [facility] Comment on above: Performed By: #### Remberto ANTOINE CMP, 3040-3, 42875-8 #### [facility] ([id number]) [address] [place] [address] Platelet mean volume (Bld) [Entitic vol] 8.2 fL Normal 7-12 [facility] Comment on above: Performed By: #### Remberto ANTOINE, CMP, 3040-3, 68178-0 #### [facility] ([id number]) [address] [place] [address]65 Platelets (Bld) [#/Vol] 254 10*3/uL Normal 150-450 [facility] Comment on above: Performed By: #### C BCA, CMP, 3040-3, 10331-0 #### [facility] ([id number]) [address] [place] [address] 55771 RBC COUNT 4.66 X10E12/L Normal 4.10-5.70 [facility] Comment on above: Performed By: #### C BCA, CMP, 3040-3, 50077-0 #### [facility] ([id number]) [address] [place] [address]03 WBC (Bld) [#/Vol] 8.1 10*3/uL Normal 4.0-11.0 [facility] Comment on above: Performed By: #### C BCA, CMP, 3040-3, 68140-4 #### [facility] ([id number]) [address] [place] [address]103 COMPREHENSIVE METABOLIC PANE [facility] 05-15-2024 Albumin [Mass/Vol] 4.5 g/dL Normal 3.2-5.3 [facility] Comment on above: Performed By: #### C BCA, CMP, 3040-3, 69583-8 #### [facility] ([id number]) [address] [place] [address]99 ALP [Catalytic activity/Vol] 105 U/L Normal 39-130 [facility] Comment on above: Performed By: #### C BCA, CMP, 3040-3, 27664-9 #### [facility] ([id number]) [address] [place] [address] 04121 ALT [Catalytic activity/Vol] 33 U/L Normal 0-40 [facility] Comment on above: Performed By: #### C BCA, CMP, 3040-3, 08598-8 #### [facility] ([id number]) [address] [place] [address] 30649 Anion gap [Moles/Vol] 9 mmol/L Normal 5-15 [facility] Comment on above: Performed By: #### C BCA, CMP, 3040-3, 31551-4 #### [facility] ([id number]) [address] [place] [address] 82789 AST [Catalytic activity/Vol] 29 U/L Normal 0-41 [facility] Comment on above: Performed By: #### C BCA, CMP, 3040-3, 19631-2 #### [facility] ([id number]) [address] [place] [address] 16357 Bilirubin [Mass/Vol] 0.9 mg/dL Normal 0.3-1.2 [facility] Comment on above: Performed By: #### C BCA, CMP, 3040-3, 47506-2 #### [facility] ([id number]) [address] [place] [address] 24367 Calcium [Mass/Vol] 9.1 mg/dL Normal 8.5-10.5 [facility] Comment on above: Performed By: #### C BCA, CMP, 3040-3, 94970-2 #### [facility] ([id number]) [address] [place] [address] 95545 Chloride [Moles/Vol] 96 mmol/L Low 98-109 [facility] Comment on above: Performed By: #### C BCA, CMP, 3040-3, 18164-6 #### [facility] ([id number]) [address] [place] [address] 55376 CO2 [Moles/Vol] 24 mmol/L Normal 22-32 [facility] Comment on above: Performed By: #### C BCA, CMP, 3040-3, 25713-3 #### [facility] ([id number]) [address] [place] [address] 14191 Creatinine [Mass/Vol] 0.91 mg/dL Normal 0.70-1.20 [facility] Comment on above: Result Comment: METH OD TRACEABLE TO IDMS STANDARD Performed By: #### C ALEXANDRI[place] ANTOINE, 3040-3, 43881-0 #### [facility] ([id number]) [address] [place] [address] 22681 eGFR (CKD-EPI) NON-RACE DEPENDENT >90 Normal >59 [facility] Comment on above: Result Comment: Reported eGFR is based on the CKD-EPI 2020 equation that does not use a race coefficient. Performed By: #### C A[place] ANTOINE, 3040-3, 38074-2 #### [facility] ([id number]) [address] [place] [address] 82768 Glucose [Mass/Vol] 97 mg/dL Normal 65-99 [facility] Comment on above: Performed By: #### C A[place] ANTOINE, 3040-3, 29606-9 #### [facility] ([id number]) [address] [place] [address] 92943 Potassium [Moles/Vol] 3.2 mmol/L Low 3.5-5.0 [facility] Comment on above: Performed By: #### C A[place] ANTOINE, 3040-3, 61840-0 #### [facility] ([id number]) [address] [place] [address] 25841 Protein [Mass/Vol] 7.2 g/dL Normal 6.0-8.0 [facility] Comment on above: Performed By: #### C ALEX[place] ANTOINE, 3040-3, 89718-8 #### [facility] ([id number]) [address] [place] [address] 09351 Sodium [Moles/Vol] 129 mmol/L Low 134-146 [facility] Comment on above: Performed By: #### C ALEX[place] ANTOINE, 3040-3, 45708-2 #### [facility] ([id number]) [address] [place] [address] 01048 Urea nitrogen [Mass/Vol] 15 mg/dL Normal 5-23 [facility] Comment on above: Performed By: #### C ARASH CMP, 3040-3, 97981-4 #### [facility] ([id number]) [address] [place] [address] 79240 LIPASEon 05-15-2024 Lipase [Catalytic activity/Vol] 37 U/L Normal 17-40 [facility] Comment on above: Performed By: #### C ALEX[place] ANTOINE, 3040-3, 80854-2 #### [facility] ([id number]) [address] [place] [address] 74236 Lactate (P cherie) [Moles/Vol]o n 05-15-2024 LACTATE W/REFLEX 1.0 mmol/L Normal 0.4-2.0 [facility] Comment on above: Result Comment: Result did not trigger repeat Lactate, re-order if needed. Performed By: #### 3 2133-1 #### [facility] ([id number]) [address] [place] [address] 89582 Troponin I.cardiac High sens itivity method [Mass/Vol]on 05-15-2024 1 HOUR TROP I, HIGH SENSITIVITY 3 ng/L Normal <21 [facility] Comment on above: Performed By: #### 8 9579-7 #### [facility] ([id number]) [address] [place] [address] 31383 TROPONIN I, HIGH SENSITIVITY 3 ng/L Normal <21 [facility] Comment on above: Performed By: #### C ARASH CMP, 3040-3, 02545-3 #### [facility] ([id number]) [address] [place] [address] 29981 Bacteria [Presence] in Urine by AutomatedOrdered By: Nish Davidson on 03-03-2024 Bacteria Auto Ql (U) None seen [HPF] None Seen [facility] Basophils Auto (Bld) [#/Vol] Ordered By: James De on 03-03-2024 Basophils (Bld) [#/Vol] 0.0 10*3/uL 0.0-0.[address] [facility] Basophils/100 WBC Auto (Bld) Ordered By: James De on 03-03-2024 Basophils/100 WBC (Bld) 0.4 % . [facility] Bilirubin Test strip Ql (U)O rdered By: Nish Davidson on 03-03-2024 Bilirubin Ql (U) Negative Negative [facility] Calcium [Mass/volume] in Ser um or PlasmaOrdered By: James De on 03-03-2024 Calcium [Mass/Vol] 9.5 mg/dL 8.6-10.3 [facility] Carbon dioxide, total [Moles /volume] in Serum or PlasmaOrdered By: James De on 03-03-2024 CO2 [Moles/Vol] 25.3 mmol/L 21.0-31.0 [facility] Chloride [Moles/volume] in S dereje or PlasmaOrdered By: James De on 03-03-2024 Chloride [Moles/Vol] 102 mmol/L 98-107 [facility] Color Auto (U)Ordered By: Dimitry Davidson on 03-03-2024 Color (U) Yellow Yellow [facility] Creatinine [Mass/volume] in Serum or PlasmaOrdered By: James De on 03-03-2024 Creatinine [Mass/Vol] 1.18 mg/dL 0.70-1.30 [facility] Eosinophils Auto (Bld) [#/Vo l]Ordered By: James De on 03-03-2024 Eosinophils (Bld) [#/Vol] 0.2 10*3/uL 0.0-0.[address] [facility] Eosinophils/100 WBC Auto (Bl d)Ordered By: James De on 03-03-2024 Eosinophils/100 WBC (Bld) 2.6 % . [facility] Epithelial cells.squamous [# /area] in Urine sediment by Automated countOrdered By: Nish Davidson on 03-03-2024 Epithelial cells.squamous Auto (Urine sed) [#/Area] 1-2 [HPF] 0-[address] [facility] Erythrocyte distribution wid th Auto (RBC) [Ratio]Ordered By: James De on 03-03-2024 Erythrocyte distribution width (RBC) [Ratio] 12.6 % 12.0-14.[address] [facility] Erythrocytes [#/area] in Uri ne sediment by Automated countOrdered By: Nish Davidson on 03-03-2024 RBC Auto (Urine sed) [#/Area] None seen [HPF] 0-[address] [facility] Glucose [Mass/volume] in Ser um or PlasmaOrdered By: James De on 03-03-2024 Glucose [Mass/Vol] 83 mg/dL 70-100 [facility] Comment on above: ADA recommended refe rence rangeRandom Glucose Reference Range is dependent on time and content of last meal. Glucose of more than 200 mg/dL in a nonstressed, ambulatory subject supports the diagnosis of Diabetes Mellitus. Glucose [Mass/volume] in Uri ne by Test stripOrdered By: Nish Davidson on 03-03-2024 Glucose Test strip (U) [Mass/Vol] Normal mg/dL Normal [facility] Hematocrit Auto (Bld) [Volum e fraction]Ordered By: James De on 03-03-2024 Hematocrit (Bld) [Volume fraction] 52.6 % High 38.8-50.[address] [facility] Hemoglobin Test strip Ql (U) Ordered By: Nish Davidson on 03-03-2024 Hemoglobin Ql (U) Negative Negative [facility] Hemoglobin [Mass/volume] in BloodOrdered By: James De on 03-03-2024 Hemoglobin (Bld) [Mass/Vol] 18.5 g/dL High 13.0-17.[address] [facility] Hyaline casts [#/area] in Ur ine sediment by Automated countOrdered By: Nish Davidson on 03-03-2024 Hyaline casts Auto (Urine sed) [#/Area] 0-8 [LPF] 0-[address] [facility] Ketones Test strip Ql (U)Ord ered By: Nish Davidson on 03-03-2024 Ketones Ql (U) 2+ High Negative [facility] Leukocyte esterase [Presence ] in Urine by Test stripOrdered By: Nish Davidson on 03-03-2024 Leukocyte esterase Test strip Ql (U) Negative Negative [facility] Leukocytes [#/area] in Urine sediment by Automated countOrdered By: Nish Davidson on 03-03-2024 WBC Auto (Urine sed) [#/Area] 1-2 [HPF] 0-[address] [facility] Leukocytes [#/volume] correc ernst for nucleated erythrocytes in Blood by Automated counOrdered By: James De on 03-03-2024 WBC corrected for nucl RBC Auto (Bld) [#/Vol] 9.0 10*3/uL 4.1-10.[address] [facility] Lymphocytes Auto (Bld) [#/Vo l]Ordered By: James De on 03-03-2024 Lymphocytes (Bld) [#/Vol] 1.2 10*3/uL 1.00-4.[address] [facility] Lymphocytes/100 WBC Auto (Bl d)Ordered By: James De on 03-03-2024 Lymphocytes/100 WBC (Bld) 13.4 % . [facility] MCH Auto (RBC) [Entitic mass ]Ordered By: James De on 03-03-2024 MCH (RBC) [Entitic mass] 32.8 pg 27.5-35.[address] [facility] MCHC Auto (RBC) [Mass/Vol]Or dered By: James De on 03-03-2024 MCHC (RBC) [Mass/Vol] 35.1 g/dL 32.5-35.6 [facility] MCV Auto (RBC) [Entitic vol] Ordered By: James De on 03-03-2024 MCV (RBC) [Entitic vol] 93.4 fL 83.5-101 [facility] Monocyte distribution width [Entitic volume] in Blood by AutomatedOrdered By: James De on 03-03-2024 Monocyte distribution width Auto (Bld) [Entitic vol] 17.08 % 0.00-20.[address] [facility] Monocytes Auto (Bld) [#/Vol] Ordered By: James De on 03-03-2024 Monocytes (Bld) [#/Vol] 0.8 10*3/uL 0.0-0.[address] [facility] Monocytes/100 WBC Auto (Bld) Ordered By: James De on 03-03-2024 Monocytes/100 WBC (Bld) 8.7 % . [facility] Mucus [Presence] in Urine by AutomatedOrdered By: Nish Davidson on 03-03-2024 Mucus Auto Ql (U) 1+ [LPF] Abnormal [facility] Neutrophils Auto (Bld) [#/Vo l]Ordered By: James De on 03-03-2024 Neutrophils (Bld) [#/Vol] 6.7 10*3/uL 1.8-7.[address] [facility] Neutrophils/100 WBC Auto (Bl d)Ordered By: James De on 03-03-2024 Neutrophils/100 WBC (Bld) 74.9 % . [facility] Nitrite Test strip Ql (U)Ord ered By: Nish Davidson on 03-03-2024 Nitrite Ql (U) Negative Negative [facility] No Panel InformationOrdered By: James De on 03-03-2024 Estimated GFR (CKD-EPI) > 60.0 mL/Min [facility] Creatinine Clearance (Chem 68.[address] [facility] Nucleated erythrocytes [Pres ence] in Blood by Automated countOrdered By: James De on 03-03-2024 Nucleated RBC Auto Ql (Bld) 0.4 /100{WBC} 0-0.[address] [facility] Platelet adequacy [Presence] in Blood by Light microscopyOrdered By: James De on 03-03-2024 Platelets LM Ql (Bld) Normal Normal [facility] Platelet mean volume Auto (B ld) [Entitic vol]Ordered By: James De on 03-03-2024 Platelet mean volume (Bld) [Entitic vol] 8.4 fL 6.6-10.[address] [facility] Platelet morphology finding [Identifier] in BloodOrdered By: James De on 03-03-2024 Platelet morphology finding Nom (Bld) Normal Normal [facility] Platelets Auto (Bld) [#/Vol] Ordered By: James De on 03-03-2024 Platelets (Bld) [#/Vol] 207 10*3/uL 150-[address] [facility] Potassium [Moles/volume] in Serum or PlasmaOrdered By: James De on 03-03-2024 Potassium [Moles/Vol] 3.7 mmol/L 3.5-5.1 [facility] Protein Test strip (U) [Mass /Vol]Ordered By: Nish Davidson on 03-03-2024 Protein (U) [Mass/Vol] Trace mg/dL High Negative [facility] RBC Auto (Bld) [#/Vol]Ordere d By: Jmaes De on 03-03-2024 RBC (Bld) [#/Vol] 5.64 10*6/uL High 3.90-5.60 [facility] RBC morphologyOrdered By: Asad De on 03-03-2024 RBC morphology finding Nom (Bld) Normal Normal [facility] Serum or plasma anion gap de terminationOrdered By: James De on 03-03-2024 Anion gap [Moles/Vol] 12.4 mmol/L 6.0-15.0 [facility] Sodium [Moles/volume] in Ser um or PlasmaOrdered By: James De on 03-03-2024 Sodium [Moles/Vol] 136 mmol/L 136-145 [facility] Specific gravity Test strip (U) [Rel density]Ordered By: Nish Davidson on 03-03-2024 Specific gravity (U) [Rel density] 1.015 1.001-1.[address] [facility] Transitional cells [#/area] in Urine by Computer assisted methodOrdered By: Nish Davidson on 03-03-2024 Transitional cells Computer assisted (U) [#/Area] 1-2 [HPF] High 0-[address] [facility] Urea nitrogen [Mass/volume] in Serum or PlasmaOrdered By: James De on 03-03-2024 Urea nitrogen [Mass/Vol] 8 mg/dL 7-[address] [facility] Urine appearanceOrdered By: Nish Davidson on 03-03-2024 Appearance (U) Clear Clear [facility] Urobilinogen Test strip (U) [Mass/Vol]Ordered By: Nish Davidson on 03-03-2024 Urobilinogen (U) [Mass/Vol] Normal mg/dL Normal [facility] WBC Auto (Bld) [#/Vol]Ordere d By: James De on 03-03-2024 WBC (Bld) [#/Vol] 9.0 10*3/uL 4.1-10.5 [facility] pH Test strip (U)Ordered By: Nish Davidson on 03-03-2024 pH (U) 6.0 [pH] 5.0-9.[address] [facility] Surgical Pathologyon 024 Surgical Pathology Normal [facility] Comment on above: Result Comment: [facility] [address] [place] [address] Surgical Pathology Consultation Patient Name:CHAI ARNOLD:1970 (Age: 53)Gender:MTaken:4Reported:02/22/2024hysician(s):Jennyfer Augustin MD ([phone])Copy To: Rec. #:[id number]: #[id number] Final Pathologic Diagnosis 1. Colon polyp 55cm: Hyperplastic polyp. 2. Colon polyp 35cm: Tubular adenoma. Report Electronically Signed Out st02/22/2024Keren Bee MD Interpretation performed at [facility], [address] [place] [id number], License number: [id number]. Clinical History Change in bowel habits. Gross Description 1. Received in formalin labeled, SAUMYAFTTrev, 55 cm is a mccray-richardson 0.3 cm soft tissue.. The specimen is filtered and entirely submitted in a single cassette. (1, ns, [id number], m8) SM 2. Received in formalin labeled, CATALINA, 35 cm is a pale richardson 0.3 cm the specimen is filtered and entirely submitted in a single cassette. (1, ns, [id number], m8) SM [facility]02/20/2024GR Specimen(s) Received 1: Colon polyp 55cm 2: Colon polyp 35cm Fee Codes(s): 1; 74116 2; 79543 Alanine aminotransferase [En zymatic activity/volume] in Serum or PlasmaOrdered By: Jennyfer Winkler on 01-29-2024 ALT [Catalytic activity/Vol] 24 U/L 7-[address] [facility] Albumin [Mass/volume] in Ser um or Plasma by Bromocresol green (BCG) dye binding methoOrdered By: Jennyfer Winkler on 01-29-2024 Albumin BCG dye [Mass/Vol] 4.9 g/dL 3.5-5.[address] [facility] Alkaline phosphatase [Enzyma tic activity/volume] in Serum or PlasmaOrdered By: Jennyfer Winkler on 01-29-2024 ALP [Catalytic activity/Vol] 96 U/L 34-[address] [facility] Amylase [Enzymatic activity/ volume] in Serum or PlasmaOrdered By: Jennyfer Winkelr on 01-29-2024 Amylase [Catalytic activity/Vol] 47 U/L 29-[address] [facility] Aspartate aminotransferase [ Enzymatic activity/volume] in Serum or PlasmaOrdered By: Jennyfer Winkler on 01-29-2024 AST [Catalytic activity/Vol] 21 U/L 13-[address] [facility] Basophils Auto (Bld) [#/Vol] Ordered By: Jennyfer Winkler on 01-29-2024 Basophils (Bld) [#/Vol] N/A F [facility] Basophils/100 WBC Auto (Bld) Ordered By: Jennyfer Winkler on 01-29-2024 Basophils/100 WBC (Bld) N/A F [facility] Bilirubin Test strip Ql (U)O rdered By: Jennyfer Winkler on 01-29-2024 Bilirubin Ql (U) Negative Negative [facility] Bilirubin.direct [Mass/volum e] in Serum or PlasmaOrdered By: Jennyfer Winkler on 01-29-2024 Bilirubin.direct [Mass/Vol] 0.10 mg/dL 0.03-0.[address] [facility] Bilirubin.total [Mass/volume ] in Serum or PlasmaOrdered By: Jennyfer Winkler on 01-29-2024 Bilirubin [Mass/Vol] 0.8 mg/dL 0.3-1.0 [facility] Calcium [Mass/volume] in Ser um or PlasmaOrdered By: Jennyfer Winkler on 01-29-2024 Calcium [Mass/Vol] 10.2 mg/dL 8.6-10.3 [facility] Carbon dioxide, total [Moles /volume] in Serum or PlasmaOrdered By: Jennyfer Winkler on 01-29-2024 CO2 [Moles/Vol] 26.4 mmol/L 21.0-31.0 [facility] Chloride [Moles/volume] in S dereje or PlasmaOrdered By: Jennyfer Winkler on 01-29-2024 Chloride [Moles/Vol] 98 mmol/L 98-107 [facility] Color Auto (U)Ordered By: Ella Winkler on 01-29-2024 Color (U) Colorless Yellow [facility] Creatinine [Mass/volume] in Serum or PlasmaOrdered By: Jennyfer Winkler on 01-29-2024 Creatinine [Mass/Vol] 1.07 mg/dL 0.70-1.30 [facility] Eosinophils Auto (Bld) [#/Vo l]Ordered By: Jennyfer Winkler on 01-29-2024 Eosinophils (Bld) [#/Vol] N/A [facility] Eosinophils/100 WBC Auto (Bl d)Ordered By: Jennyfer Winkler on 01-29-2024 Eosinophils/100 WBC (Bld) N/A [facility] Eosinophils/100 WBC Manual c nt (Bld)Ordered By: Jennyfer Winkler on 01-29-2024 Eosinophils/100 WBC (Bld) 5 % High 1-[address] [facility] Erythrocyte distribution wid th Auto (RBC) [Ratio]Ordered By: Jennyfer Winkler on 01-29-2024 Erythrocyte distribution width (RBC) [Ratio] 12.1 % 12.0-14.[address] [facility] Giant platelets/100 leukocyt es [Ratio] in Blood by Manual countOrdered By: Jennyfer Winkler on 01-29-2024 Giant platelets/100 WBC Manual cnt (Bld) [Ratio] 1 /100{WBC} [facility] Globulin Calc (S) [Mass/Vol] Ordered By: Jennyfer Winkler on 01-29-2024 Globulin (S) [Mass/Vol] 3.1 g/dL F [facility] Glucose [Mass/volume] in Ser um or PlasmaOrdered By: Jennyfer Winkler on 01-29-2024 Glucose [Mass/Vol] 103 mg/dL High 70-100 [facility] Comment on above: ADA recommended refe rence rangeRandom Glucose Reference Range is dependent on time and content of last meal. Glucose of more than 200 mg/dL in a nonstressed, ambulatory subject supports the diagnosis of Diabetes Mellitus. Glucose [Mass/volume] in Uri ne by Test stripOrdered By: Jennyfer Winkler on 01-29-2024 Glucose Test strip (U) [Mass/Vol] Normal mg/dL Normal [facility] Hematocrit Auto (Bld) [Volum e fraction]Ordered By: Jennyfer Winkler on 01-29-2024 Hematocrit (Bld) [Volume fraction] 54.1 % High 38.8-50.[address] [facility] Hemoglobin Test strip Ql (U) Ordered By: Jennyfer Winkler on 01-29-2024 Hemoglobin Ql (U) Negative Negative [facility] Hemoglobin [Mass/volume] in BloodOrdered By: Jennyfer Winkler on 01-29-2024 Hemoglobin (Bld) [Mass/Vol] 18.9 g/dL High 13.0-17.[address] [facility] Ketones Test strip Ql (U)Ord ered By: Jennyfer Winkler on 01-29-2024 Ketones Ql (U) Negative Negative [facility] Leukocyte esterase [Presence ] in Urine by Test stripOrdered By: Jennyfer Winkler on 01-29-2024 Leukocyte esterase Test strip Ql (U) Negative Negative [facility] Leukocytes [#/volume] correc ernst for nucleated erythrocytes in Blood by Automated counOrdered By: Jennyfer Winkler on 01-29-2024 WBC corrected for nucl RBC Auto (Bld) [#/Vol] 6.8 10*3/uL 4.1-10.[address] [facility] Lipase [Enzymatic activity/v olume] in Serum or PlasmaOrdered By: Jennyfer Winkler on 01-29-2024 Lipase [Catalytic activity/Vol] 29.0 U/L 11.0-82.[address] [facility] Lymphocytes Auto (Bld) [#/Vo l]Ordered By: Jennyfer Winkler on 01-29-2024 Lymphocytes (Bld) [#/Vol] N/A [facility] Lymphocytes/100 WBC Auto (Bl d)Ordered By: Jennyfer Winkler on 01-29-2024 Lymphocytes/100 WBC (Bld) N/A [facility] Lymphocytes/100 WBC Manual c nt (Bld)Ordered By: Jennyfer Winkler on 01-29-2024 Lymphocytes/100 WBC (Bld) 28 % 18-[address] [facility] MCH Auto (RBC) [Entitic mass ]Ordered By: Jennyfer Winkler on 01-29-2024 MCH (RBC) [Entitic mass] 32.4 pg 27.5-35.[address] [facility] MCHC Auto (RBC) [Mass/Vol]Or dered By: Jennyfer Winkler on 01-29-2024 MCHC (RBC) [Mass/Vol] 35.0 g/dL 32.5-35.[address] [facility] MCV Auto (RBC) [Entitic vol] Ordered By: Jennyfer Winkler on 01-29-2024 MCV (RBC) [Entitic vol] 92.7 fL 83.5-101 F [facility] Monocyte distribution width [Entitic volume] in Blood by AutomatedOrdered By: Jennyfer Winkler on 01-29-2024 Monocyte distribution width Auto (Bld) [Entitic vol] 18.41 % 0.00-20.[address] [facility] Monocytes Auto (Bld) [#/Vol] Ordered By: Jennyfer Winkler on 01-29-2024 Monocytes (Bld) [#/Vol] N/A [facility] Monocytes/100 WBC Auto (Bld) Ordered By: Jennyfer Winkler on 01-29-2024 Monocytes/100 WBC (Bld) N/A [facility] Monocytes/100 WBC Manual cnt (Bld)Ordered By: Jennyfer Winkler on 01-29-2024 Monocytes/100 WBC (Bld) 4 % 2-11 [facility] Neutrophils Auto (Bld) [#/Vo l]Ordered By: Jennyfer Winkler on 01-29-2024 Neutrophils (Bld) [#/Vol] N/A [facility] Neutrophils/100 WBC Auto (Bl d)Ordered By: Jennyfer Winkler on 01-29-2024 Neutrophils/100 WBC (Bld) N/A [facility] Nitrite Test strip Ql (U)Ord ered By: Jennyfer Winkler on 01-29-2024 Nitrite Ql (U) Negative Negative [facility] No Panel InformationOrdered By: Jennyfer Winkler on 01-29-2024 Estimated GFR (CKD-EPI) > 60.0 mL/Min [facility] Creatinine Clearance (Chem 83.[address] [facility] Nucleated erythrocytes [Pres ence] in Blood by Automated countOrdered By: Jennyfer Winkler on 01-29-2024 Nucleated RBC Auto Ql (Bld) N/A [facility] Platelet adequacy [Presence] in Blood by Light microscopyOrdered By: Jennyfer Winkler on 01-29-2024 Platelets LM Ql (Bld) Normal Normal [facility] Platelet mean volume Auto (B ld) [Entitic vol]Ordered By: Jennyfer Winkler on 01-29-2024 Platelet mean volume (Bld) [Entitic vol] 8.1 fL 6.6-10.[address] [facility] Platelet morphology finding [Identifier] in BloodOrdered By: Jennyfer Winkler on 01-29-2024 Platelet morphology finding Nom (Bld) Normal Normal [facility] Platelets Auto (Bld) [#/Vol] Ordered By: Jennyfer Winkler on 01-29-2024 Platelets (Bld) [#/Vol] 245 10*3/uL 150-[address] [facility] Potassium [Moles/volume] in Serum or PlasmaOrdered By: Jennyfer Winkler on 01-29-2024 Potassium [Moles/Vol] 3.9 mmol/L 3.5-5.1 [facility] Protein Test strip (U) [Mass /Vol]Ordered By: Jennyfer Winkler on 01-29-2024 Protein (U) [Mass/Vol] Negative Negative [facility] Protein [Mass/volume] in Ser um or PlasmaOrdered By: Jennyfer Winkler on 01-29-2024 Protein [Mass/Vol] 8.0 g/dL 6.4-8.9 [facility] RBC Auto (Bld) [#/Vol]Ordere d By: Jennyfer Winkler on 01-29-2024 RBC (Bld) [#/Vol] 5.83 10*6/uL High 3.90-5.60 [facility] RBC morphologyOrdered By: Ella Winkler on 01-29-2024 RBC morphology finding Nom (Bld) Normal Normal [facility] Segmented neutrophils/100 WB C Manual cnt (Bld)Ordered By: Jennyfer Winkler on 01-29-2024 Segmented neutrophils/100 WBC (Bld) 58 % 50-[address] [facility] Serum or plasma albumin/glob ulin mass ratioOrdered By: Jennyfer Winkler on 01-29-2024 Albumin/Globulin [Mass ratio] 1.6 {ratio} [facility] Serum or plasma anion gap de terminationOrdered By: Jennyfer Winkler on 01-29-2024 Anion gap [Moles/Vol] 10.5 mmol/L 6.0-15.0 [facility] Serum or plasma non-glucuron idated bilirubin measurement (mass/volume)Ordered By: Jennyfer Winkler on 01-29-2024 Bilirubin.indirect [Mass/Vol] 0.7 mg/dL [facility] Sodium [Moles/volume] in Ser um or PlasmaOrdered By: Jennyfer Winkler on 01-29-2024 Sodium [Moles/Vol] 131 mmol/L Low 136-145 [facility] Specific gravity Test strip (U) [Rel density]Ordered By: Jennyfer Winkler on 01-29-2024 Specific gravity (U) [Rel density] 1.003 1.001-1.[address] [facility] Urea nitrogen [Mass/volume] in Serum or PlasmaOrdered By: Jennyfer Winkler on 01-29-2024 Urea nitrogen [Mass/Vol] 6 mg/dL Low 7-[address] [facility] Urine appearanceOrdered By: Jennyfer Winkler on 01-29-2024 Appearance (U) Clear Clear [facility] Urobilinogen Test strip (U) [Mass/Vol]Ordered By: Jennyfer Winkler on 01-29-2024 Urobilinogen (U) [Mass/Vol] Normal mg/dL Normal [facility] Variant lymphocytes/100 WBC Manual cnt (Bld)Ordered By: Jennyfer Winkler on 01-29-2024 Variant lymphocytes/100 WBC (Bld) 6 % 0-[address] [facility] WBC Auto (Bld) [#/Vol]Ordere d By: Jennyfer Winkler on 01-29-2024 WBC (Bld) [#/Vol] 6.8 10*3/uL 4.1-10.5 [facility] pH Test strip (U)Ordered By: Jennyfer Winkler on 01-29-2024 pH (U) 7.5 [pH] 5.0-9.[address] [facility] CBC AUTO DIFFon 03-26-2022 BASO # 0.1 103/ul Normal 0.0-0.1 [facility] Comment on above: Performed By: #### C BC #### [facility] [address] [address] [address] Pravin Travis Basophils/100 WBC (Bld) 0.7 % Normal 0.2-2.0 [facility] Comment on above: Performed By: #### C BC #### [facility] [address] [address] [address] Pravin Travis EO # 0.6 103/ul Normal 0.0-0.7 [facility] Comment on above: Performed By: #### C BC #### [facility] [address] [place] [address] Dr. Pravin Travis Eosinophils/100 WBC (Bld) 7.4 % Critically high 0.9-7.0 [facility] Comment on above: Performed By: #### C BC #### [facility] [address] [place] [address] Dr. Pravin Travis Erythrocyte distribution width (RBC) [Ratio] 12.3 % Normal 11.0-15.0 [facility] Comment on above: Performed By: #### C BC #### [facility] [address] [place] [address] Dr. Pravin Travis Hematocrit (Bld) [Volume fraction] 47.2 % Normal 42.0-54.0 [facility] Comment on above: Performed By: #### C BC #### [facility] [address] [place] [address] Dr. Pravin Travis Hemoglobin (Bld) [Mass/Vol] 16.2 g/dL Normal 14.0-18.0 [facility] Comment on above: Performed By: #### C BC #### [facility] [address] [place] [address] Dr. Pravin Travis IG # 0.03 10e3/ul Normal 0.00-0.03 [facility] Comment on above: Performed By: #### C BC #### [facility] [address] [place] [address] Dr. Pravin Travis IG % 0.4 % Normal 0.0-0.5 [facility] Comment on above: Performed By: #### C BC #### [facility] [address] [place] [address] Dr. Pravin Travis LYMPH # 2.1 103/ul Normal 1.2-3.8 [facility] Comment on above: Performed By: #### C BC #### [facility] [address] [place] [address] Dr. Pravin Travis Lymphocytes/100 WBC (Bld) 24.3 % Normal 20.5-60.0 [facility] Comment on above: Performed By: #### C BC #### [facility] [address] [place] [address] Dr. Pravin Travis MANUAL DIFF REQ NO Normal [facility] Comment on above: Performed By: #### C BC #### [facility] [address] [place] [address] Dr. Pravin Travis MCH (RBC) [Entitic mass] 32.6 pg Normal 25.9-34.0 [facility] Comment on above: Performed By: #### C BC #### [facility] [address] [place] [address] Dr. Pravin Travis MCHC (RBC) [Mass/Vol] 34.3 g/dL Normal 29.9-35.2 [facility] Comment on above: Performed By: #### C BC #### [facility] [address] [place] [address] Dr. Pravin Travis MCV (RBC) [Entitic vol] 95.0 fL Critically high 80.0-94 .0 [facility] Comment on above: Performed By: #### C BC #### [facility] [address] [place] [address] Dr. Pravin Travis MONO # 0.8 103/ul Normal 0.3-0.8 [facility] Comment on above: Performed By: #### C BC #### [facility] [address] [place] [address] Dr. Pravin Travis Monocytes/100 WBC (Bld) 9.7 % Normal 1.7-12.0 [facility] Comment on above: Performed By: #### C BC #### [facility] [address] [place] [address] Dr. Pravin Travis NEUT # 4.9 103/ul Normal 1.4-6.5 [facility] Comment on above: Performed By: #### C BC #### [facility] [address] [place] [address] Dr. Pravin Travis Neutrophils/100 WBC (Bld) 57.5 % Normal 43.0-75.0 [facility] Comment on above: Performed By: #### C BC #### [facility] [address] [place] [address] Dr. Pravin Travis Platelet mean volume (Bld) [Entitic vol] 10.4 fL Normal 9.5-13.5 [facility] Comment on above: Performed By: #### C BC #### [facility] [address] [place] [address] Dr. Pravin Travis PLT 215 103/ul Normal 150-450 [facility] Comment on above: Performed By: #### C BC #### [facility] [address] [place] [address] Dr. Pravin Travis RBC 4.97 106/ul Normal 4.70-6.10 [facility] Comment on above: Performed By: #### C BC #### [facility] [address] [place] [address] Dr. Pravin Travis WBC 8.6 103/ul Normal 4.0-11.0 [facility] Comment on above: Performed By: #### C BC #### [facility] [address] [place] [address] ABD/PELV W CONon [...] ALANA MORROW Date: 2022-03-26 01:45 Normal [facility] ER URINE PROFILEon 2 Bilirubin Ql (U) Negative Normal NEGATIVE [facility] Comment on above: Performed By: #### E RUR #### [facility] [address] [place] [address] Dr. Pravin Travis Clarity (U) SL CLOUDY Abnormal CLEAR [facility] Comment on above: Performed By: #### E RUR #### [facility] [address] [place] [address] Dr. Pravin Travis Color (U) LT. YELLOW Normal YELLOW [facility] Comment on above: Performed By: #### E RUR #### [facility] [address] [place] [address] Dr. Pravin ELLERMayi A micrscopic examination will be performed if indicated. Normal [facility] Comment on above: Performed By: #### E RUR #### [facility] [address] [place] [address] Dr. Pravin Travis Glucose Ql (U) Negative Normal NEGATIVE [facility] Comment on above: Performed By: #### E RUR #### [facility] [address] [place] [address] Dr. Pravin Travis Hemoglobin Ql (U) Negative Normal NEGATIVE [facility] Comment on above: Performed By: #### E RUR #### [facility] [address] [place] [address] Dr. Pravin Travis Ketones Ql (U) Negative Normal NEGATIVE [facility] Comment on above: Performed By: #### E RUR #### [facility] [address] [place] [address] Dr. Pravin Travis LEUKOCYTES Negative Normal NEGATIVE [facility] Comment on above: Performed By: #### E RUR #### [facility] [address] [place] [address] Dr. Pravin Travis Nitrite Ql (U) Negative Normal NEGATIVE [facility] Comment on above: Performed By: #### E RUR #### [facility] [address] [place] [address] Dr. Pravin Travis pH (U) 7.5 [pH] Normal 5-9 [facility] Comment on above: Performed By: #### E RUR #### [facility] [address] [place] [address] Dr. Pravin Travis SPEC GRAVITY 1.015 Normal 1.005-<=1.[address] [place] [address] Comment on above: Performed By: #### E RUR #### [facility] [address] [place] [address] Dr. Pravin Travis UA PROTEIN Negative Normal NEGATIVE/ TRACE [facility] Comment on above: Performed By: #### E RUR #### [facility] [address] [place] [address] Dr. Pravin Travis UR MICRO IND NOT INDICATED Normal [facility] Comment on above: Performed By: #### E RUR #### [facility] [address] [place] [address] Dr. Pravin Travis Urobilinogen Qn (U) 0.2 {Katie'U}/dL Normal 0.2 - 1. 0 [facility] Comment on above: Performed By: #### E RUR #### [facility] [address] [place] [address] Dr. Pravin Travis PROF 14(COMP METB)on 022 Albumin [Mass/Vol] 4.3 g/dL Normal 3.4-5.0 [facility] Comment on above: Performed By: #### C MP #### [facility] [address] [address] [address] Pravin Travis Albumin/Globulin [Mass ratio] 1.3 {ratio} Normal [facility] Comment on above: Performed By: #### C MP #### [facility] [address] [address] [address] Pravin Travis ALP [Catalytic activity/Vol] 92 U/L Normal 46-116 [facility] Comment on above: Performed By: #### C MP #### [facility] [address] [address] [address] Pravin Travis ALT [Catalytic activity/Vol] 31 U/L Normal 16-63 [facility] Comment on above: Performed By: #### C MP #### [facility] [address] [place] [address] Dr. Pravin Travis Anion gap [Moles/Vol] 10.9 mmol/L Normal [facility] Comment on above: Performed By: #### C MP #### [facility] [address] [place] [address] Dr. Pravin Travis AST [Catalytic activity/Vol] 31 U/L Normal 15-37 [facility] Comment on above: Performed By: #### C MP #### [facility] [address] [place] [address] Dr. Pravin Travis Bilirubin [Mass/Vol] 0.5 mg/dL Normal 0.2-1.0 [facility] Comment on above: Performed By: #### C MP #### [facility] [address] [place] [address] Dr. Pravin Travis Calcium [Mass/Vol] 9.3 mg/dL Normal 8.5-10.1 [facility] Comment on above: Performed By: #### C MP #### [facility] [address] [place] [address] Dr. Pravin Travis Chloride [Moles/Vol] 103 mmol/L Normal 98-107 [facility] Comment on above: Performed By: #### C MP #### [facility] [address] [address] [address] Pravin Travis CO2 [Moles/Vol] 29.8 mmol/L Normal 21.0-32.0 [facility] Comment on above: Performed By: #### C MP #### [facility] [address] [address] [address] Pravin Travis Creatinine [Mass/Vol] 1.22 mg/dL Normal 0.70-1.30 [facility] Comment on above: Performed By: #### C MP #### [facility] [address] [address] [address] Pravin Travis EGFR-AF ICELANDIC >60 Normal >=60 [facility] Comment on above: Performed By: #### C MP #### [facility] [address] [place] [address] Dr. Pravin Travis EGFR-NON AF ICELANDIC >60 Normal >=60 [facility] Comment on above: Performed By: #### C MP #### [facility] [address] [address] [address] Pravin Travis Globulin (S) [Mass/Vol] 3.4 g/dL Normal [facility] Comment on above: Performed By: #### C MP #### [facility] [address] [address] [address] Pravin Travis Glucose [Mass/Vol] 91 mg/dL Normal 74-106 [facility] Comment on above: Performed By: #### C MP #### [facility] [address] [address] [address] Pravin Travis Potassium [Moles/Vol] 3.7 mmol/L Normal 3.5-5.1 [facility] Comment on above: Performed By: #### C MP #### [facility] [address] [place] [address] Dr. Pravin Travis Protein [Mass/Vol] 7.7 g/dL Normal 6.4-8.2 [facility] Comment on above: Performed By: #### C MP #### [facility] [address] [place] [address] Dr. Pravin Travis Sodium [Moles/Vol] 140 mmol/L Normal 136-145 [facility] Comment on above: Performed By: #### C MP #### [facility] [address] [address] [address] Pravin Travis Urea nitrogen [Mass/Vol] 11.0 mg/dL Normal 7.0-18.0 [facility] Comment on above: Performed By: #### C MP #### [facility] [address] [address] [address] Pravin Travis Urea nitrogen/Creatinine [Mass ratio] 9.0 mg/mg Normal [facility] Comment on above: Performed By: #### C MP #### [facility] [address] [address] [address] Pravin Travis COVID Quick Testingon 2021 Result Positive [facility] Other COVID Quick Testingon 2020 Result Negative [facility] Other Quick Fluon 08-11-2021 FLUAV Ab CF (S) [Titer] Negative [facility] Other FLUBV Ab CF (S) [Titer] Negative [facility] Other Vital Signs Date Time Vital Sign Value Performing Clinician Facility 03-19-2025 16:30-0400 Diastolic blood pressure 113 mm[Hg] Cisco Furlong DO Work Phone: [facility] 03-19-2025 16:30-0400 Heart rate 76 /min Cisco Furlong DO Work Phone: [facility] 03-19-2025 16:30-0400 Respiratory rate 16 /min Cisco Furlong DO Work Phone: [facility] 03-19-2025 16:30-0400 SaO2% (BldA) [Mass fraction] 97 % Cisco Furlong DO Work Phone: [facility] 03-19-2025 16:30-0400 Systolic blood pressure 143 mm[Hg] Cisco Furlong DO Work Phone: [facility] 03-19-2025 16:00-0400 Body temperature 96.8 [degF] Cisco Furlong DO Work Phone: [facility] 03-19-2025 11:36-0400 Body height 172.72 cm Cisco Furlong DO Work Phone: [facility] 03-19-2025 11:36-0400 Body weight 90.9 kg Cisco Furlong DO Work Phone: [facility] 02-28-2025 12:24-0400 Body height 175.3 cm Lydia Sankovic PA-C Work Phone: [facility] 02-28-2025 12:24-0400 Body mass index (BMI) [Ratio] 29.53 kg/m2 Lydia Sankovic PA-C Work Phone: [facility] 02-28-2025 12:24-0400 Body temperature 97 [degF] Lydia Sankovic PA-C Work Phone: [facility] 02-28-2025 12:24-0400 Body weight 90.72 kg Lydia Sankovic PA-C Work Phone: [facility] 02-28-2025 12:24-0400 Diastolic blood pressure 93 mm[Hg] Lydia Sankovic PA-C Work Phone: [facility] 02-28-2025 12:24-0400 Heart rate 76 /min Lydia Sankovic PA-C Work Phone: [facility] 02-28-2025 12:24-0400 SaO2% (BldA) [Mass fraction] 97 % Lydia Sankovic PA-C Work Phone: [facility] 02-28-2025 12:24-0400 Systolic blood pressure 141 mm[Hg] Lydia Sankovic PA-C Work Phone: [facility] 02-18-2025 13:45-0400 Body height 172.72 cm Cisco Furlong DO Work Phone: [facility] 02-18-2025 13:45-0400 Body mass index (BMI) [Ratio] 28.8 kg/m2 Cisco Furlong DO Work Phone: [facility] 02-18-2025 13:45-0400 Body weight 86.18 kg Cisco Furlong DO Work Phone: [facility] 01-09-2025 12:53-0400 Diastolic blood pressure 109 mm[Hg] Mohamad Mouchli [facility] 01-09-2025 12:53-0400 Mean blood pressure 131 mm[Hg] Mohamad Mouchli [facility] 01-09-2025 12:53-0400 Systolic blood pressure 174 mm[Hg] Mohamad Mouchli [facility] 01-09-2025 12:43-0400 Blood Pressure Location Mohamad Mouchli [facility] 01-09-2025 12:43-0400 Diastolic blood pressure 117 mm[Hg] Mohamad Mouchli [facility] 01-09-2025 12:43-0400 Heart rate 80 /min Mohamad Mouchli [facility] 01-09-2025 12:43-0400 Systolic blood pressure 179 mm[Hg] Mohamad Mouchli [facility] 12-10-2024 13:07-0400 Body height 172.7 cm Cisco Furlong DO Work Phone: [facility] [employer] 12-10-2024 13:07-0400 Body mass index (BMI) [Ratio] 29.47 kg/m2 Cisco Furlong DO Work Phone: [facility] [employer] [facility] 12-10-2024 13:07-0400 Body temperature 98.4 [degF] Cisco Furlong DO Work Phone: [facility] [employer] [facility] 12-10-2024 13:07-0400 Body weight 87.91 kg Cisco Furlong DO Work Phone: [facility] [employer] [facility] 12-10-2024 13:07-0400 Diastolic blood pressure 90 mm[Hg] Cisco Furlong DO Work Phone: [facility] [employer] [facility] 12-10-2024 13:07-0400 Heart rate 102 /min Cisco Furlong DO Work Phone: [facility] [employer] [facility] 12-10-2024 13:07-0400 Respiratory rate 18 /min Cisco Furlong DO Work Phone: [facility] 12-10-2024 13:07-0400 SaO2% (BldA) [Mass fraction] 97 % Cisco Furlong DO Work Phone: [facility] [employer] 12-10-2024 13:07-0400 Systolic blood pressure 140 mm[Hg] Cisco Furlong DO Work Phone: [facility] [employer] [facility] 09-11-2024 14:23-0500 Body height 172.7 cm Cisco Furlong DO Work Phone: [facility] [employer] [facility] 09-11-2024 14:23-0500 Body mass index (BMI) [Ratio] 28.89 kg/m2 Cisco Furlong DO Work Phone: [facility] [employer] 09-11-2024 14:23-0500 Body temperature 97.9 [degF] Cisco Furlong DO Work Phone: [facility] [facility] 09-11-2024 14:23-0500 Body weight 86.18 kg Cisco Furlong DO Work Phone: [facility] 09-11-2024 14:23-0500 Diastolic blood pressure 90 mm[Hg] Cisco Furlong DO Work Phone: [facility] [employer] [facility] 09-11-2024 14:23-0500 Heart rate 105 /min Cisco Furlong DO Work Phone: [facility] [employer] [facility] 09-11-2024 14:23-0500 Respiratory rate 20 /min Cisco Furlong DO Work Phone: [facility] 09-11-2024 14:23-0500 SaO2% (BldA) [Mass fraction] 99 % Cisco Furlong DO Work Phone: [facility] 09-11-2024 14:23-0500 Systolic blood pressure 140 mm[Hg] Cisco Furlong DO Work Phone: [facility] 03-15-2024 16:08-0400 Body height 172.7 cm Cisco Furlong DO Work Phone: [facility] 03-15-2024 16:08-0400 Body mass index (BMI) [Ratio] 27.79 kg/m2 Cisco Furlong DO Work Phone: [facility] 03-15-2024 16:08-0400 Body temperature 97.7 [degF] Cisco Furlong DO Work Phone: [facility] 03-15-2024 16:08-0400 Body weight 82.92 kg Cisco Furlong DO Work Phone: [facility] 03-15-2024 16:08-0400 Diastolic blood pressure 70 mm[Hg] Cisco Furlong DO Work Phone: [facility] 03-15-2024 16:08-0400 Heart rate 79 /min Cisco Furlong DO Work Phone: [facility] 03-15-2024 16:08-0400 SaO2% (BldA) [Mass fraction] 97 % Cisco Furlong DO Work Phone: [facility] 03-15-2024 16:08-0400 Systolic blood pressure 120 mm[Hg] Cisco Furlong DO Work Phone: [facility] 03-03-2024 14:00-0400 Diastolic blood pressure 95 mm[Hg] DO Cisco Furlong Work Phone: [facility] 03-03-2024 14:00-0400 Heart rate 79 /min DO Cisco Furlong Work Phone: [facility] 03-03-2024 14:00-0400 Respiratory rate 18 /min DO Cisco Furlong Work Phone: [facility] 03-03-2024 14:00-0400 SaO2% (BldA) [Mass fraction] 95 % DO Cisco Furlong Work Phone: [facility] 03-03-2024 14:00-0400 Systolic blood pressure 147 mm[Hg] DO Cisco Furlong Work Phone: [facility] 03-03-2024 11:20-0400 Body temperature 98.2 [degF] DO Cisco Furlong Work Phone: [facility] 03-03-2024 11:18-0400 Body height 172.72 cm DO Cisco Furlong Work Phone: [facility] 03-03-2024 11:18-0400 Body weight 80.65 kg DO Cisco Furlong Work Phone: [facility] 02-02-2024 11:29-0400 Body temperature 98.6 [degF] Didi Orzech [facility] 02-02-2024 11:29-0400 Diastolic blood pressure 81 mm[Hg] Didi Orzech [facility] 02-02-2024 11:29-0400 Heart rate 77 /min Didi Orzech [facility] 02-02-2024 11:29-0400 Respiratory rate 16 /min Didi Orzech [facility] 02-02-2024 11:29-0400 Systolic blood pressure 136 mm[Hg] Didi Orzech [facility] 01-30-2024 01:11-0400 Heart rate 159 /min DO Cisco Furlong Work Phone: [facility] 01-30-2024 00:30-0400 Respiratory rate 22 /min DO Cisco Furlong Work Phone: [facility] 01-30-2024 00:30-0400 SaO2% (BldA) [Mass fraction] 97 % DO Cisco Furlong Work Phone: [facility] 01-29-2024 23:38-0400 Diastolic blood pressure 95 mm[Hg] DO Cisco Furlong Work Phone: [facility] 01-29-2024 23:38-0400 Systolic blood pressure 136 mm[Hg] DO Cisco Furlong Work Phone: [facility] 01-29-2024 22:45-0400 Body height 172.72 cm DO Cisco Furlong Work Phone: [facility] 01-29-2024 22:45-0400 Body weight 86.2 kg DO Cisco Furlong Work Phone: [facility] 01-29-2024 22:44-0400 Body temperature 98.3 [degF] DO Cisco Furlong Work Phone: [facility] 12-09-2023 08:47-0400 Body height 172.7 cm Michelle Tito [employer] DES[employer] Work Phone: [employer] 12-09-2023 08:47-0400 Body mass index (BMI) [Ratio] 30.08 kg/m2 Michelle Francis [employer] Work Phone: [employer] 12-09-2023 08:47-0400 Body temperature 98.29 [degF] Michelle Francis [employer]IOR ELECT[employer]ICAL DES[employer]ER Work Phone: [employer] 12-09-2023 08:47-0400 Body weight 89.72 kg Michelle Francis [employer]ICAL DES[employer] Work Phone: [employer] 12-09-2023 08:47-0400 Diastolic blood pressure 86 mm[Hg] Michelle Francis [employer]ICAL DES[employer]ER Work Phone: [employer] 12-09-2023 08:47-0400 Heart rate 82 /min Michelle Francis APRN-SENIOR ELECTRICAL DESIGNER Work Phone: [employer] 12-09-2023 08:47-0400 Respiratory rate 18 /min Michelle Francis APRN-SENIOR ELECTRICAL DESIGNER Work Phone: [employer] 12-09-2023 08:47-0400 SaO2% (BldA) [Mass fraction] 96 % Michelle Francis APRN-SENIOR ELECTRICAL DESIGNER Work Phone: [employer] 12-09-2023 08:47-0400 Systolic blood pressure 120 mm[Hg] Michelle Francis [employer] DES[employer] Work Phone: [employer] 09-01-2021 13:30-0500 Body height 172.72 cm Tawnya Andre Other [facility] Other 09-01-2021 13:30-0500 Body mass index (BMI) [Ratio] 31.93 kg/m2 Tawnya Andre Other [facility] Other 09-01-2021 13:30-0500 Body temperature 97.4 [degF] Tawnya Andre Other [facility] Other 09-01-2021 13:30-0500 Body weight 95.26 kg Tawnya Andre Other [facility] Other 09-01-2021 13:30-0500 Respiratory rate 18 /min Tawnya Anrde Other [facility] Other 09-01-2021 13:30-0500 SaO2% (BldA) [Mass fraction] 98 % Tawnya Andre Other [facility] Other 08-11-2021 12:00-0500 Body height 172.72 cm Mary Christine Other [facility] Other 08-11-2021 12:00-0500 Body mass index (BMI) [Ratio] 31.93 kg/m2 Mary Christine Other [facility] Other 08-11-2021 12:00-0500 Body temperature 96.9 [degF] Mary Christine Other [facility] Other 08-11-2021 12:00-0500 Body weight 95.26 kg Mary Christine Other [facility] Other 08-11-2021 12:00-0500 Respiratory rate 18 /min Mary Christine Other [facility] Other 08-11-2021 12:00-0500 SaO2% (BldA) [Mass fraction] 96 % Mary King Other [facility] Other Encounters Encounter Date Encounter Type Care Provider Facility Start: 04-03-2025 End: 04-03-2025 Admission to same day surgery center Lydia Drake PA-C Work Phone: Colorectal Surgery Comment on above: Pelvic Floor Confere nce Start: 04-03-2025 End: 04-03-2025 ambulatory Lydia Drake PA-C Work Phone: Colorectal Surgery Start: 04-03-2025 End: 04-03-2025 E-mail encounter from caregiver Lydia Drake PA-C Work Phone: Colorectal Surgery Start: 04-03-2025 End: 04-03-2025 Follow-up encounter Lydia Drake PA-C Work Phone: Colorectal Surgery Comment on above: Follow up from meghan mooney visit Start: 04-02-2025 End: 04-02-2025 Admission to same day surgery center Lydia Drake PA-C Work Phone: Colorectal Surgery Comment on above: Constipation, unspec ified constipation type (Primary Dx); Rectal spasm; Pelvic floor dysfunction; Anxiety; Distressed about housing issues; Orthostatic dizziness Start: 04-02-2025 End: 04-02-2025 Telemedicine consultation with patient Lydia Drake PA-C Work Phone: Colorectal Surgery Start: 04-02-2025 End: 04-02-2025 ambulatory LYDIA DRAKE Facility:[facility] Start: 03-22-2025 End: 03-27-2025 Refill Cisco Bonilla DO Work Phone: [facility] Comment on above: Anxiety Start: 03-19-2025 End: 03-19-2025 Admission to same day surgery [facility] Start: 03-19-2025 End: 03-19-2025 ambulatory Cisco Bonilla DO Work Phone: [facility] Work Phone: Start: 03-18-2025 End: 03-18-2025 Patient encounter procedure Ehsan Avina DO -Pre-Surgical Testing Work Phone: Start: 03-18-2025 End: 03-18-2025 ambulatory Cisco Furlong DO Work Phone: [facility] Work Phone: Start: 03-18-2025 Encounter for preprocedural laboratory examination Ehsan Tillman [facility] Start: 03-13-2025 End: 03-13-2025 ambulatory Cisco Furlong DO Work Phone: [facility] Work Phone: Start: 03-13-2025 End: 03-13-2025 Patient encounter procedure Ehsan Ro Kailyn -[facility] Work Phone: Start: 03-13-2025 End: 03-13-2025 Patient encounter procedure Ehsan Jia Kailyn MCLAUGHLIN -[facility] Start: 03-13-2025 End: 03-13-2025 ambulatory Cisco Furlong DO Work Phone: [facility] Work Phone: Start: 03-12-2025 Non-patient / Non-visit Ehsan Jia Ish linny -[facility] Work Phone: Start: 03-07-2025 End: 03-07-2025 Telephone encounter Lydia Drake PA-C Work Phone: Colorectal Surgery Comment on above: Patient Update Start: 03-01-2025 End: 03-01-2025 E-mail encounter from caregiver Lydia Drake PA-C Work Phone: Colorectal Surgery Start: 03-01-2025 End: 03-01-2025 Follow-up encounter Lydia Drake PA-C Work Phone: Colorectal Surgery Comment on above: Follow up from visit Start: 02-28-2025 End: 02-28-2025 Patient encounter procedure Lydia Drake PA-C Work Phone: Colorectal Surgery Comment on above: Pelvic floor dysfunc tion (Primary Dx); Rectal spasm; Constipation, unspecified constipation type Start: 02-28-2025 End: 02-28-2025 Nursing evaluation of patient and report Sahil Bergeron RN Colorectal Surgery Comment on above: Pelvic floor dysfunc tion Start: 02-28-2025 End: 02-28-2025 ambulatory FELIPE ARIAS Facility:[facility] Start: 02-18-2025 End: 02-18-2025 ambulatory Cisco Furlong DO Work Phone: [facility] Work Phone: Start: 02-18-2025 End: 02-18-2025 Patient encounter procedure Ehsan Avina DO -[facility] Work Phone: Start: 02-11-2025 End: 02-11-2025 Telephone encounter Ashley Hayward MD Work Phone: Colorectal Surgery Comment on above: Appointment (Left vm we received referral for botox injections) Start: 02-06-2025 End: 02-06-2025 Refill Cisco G Furlong DO Work Phone: [facility] Start: 01-28-2025 End: 01-29-2025 Refill Cisco G Furlong DO [facility] Start: 01-26-2025 End: 01-28-2025 Refill Cisco G Furlong DO Work Phone: [facility] Start: 01-24-2025 End: 01-24-2025 ambulatory Vivian Brady Facility:[facility] Start: 01-24-2025 End: 01-24-2025 Patient encounter procedure Vivian Brady [facility] Start: 01-16-2025 End: 01-16-2025 Transcribe Orders Vivian Brady MD Work Phone: Referring Physician Comment on above: Constipation by outl et dysfunction (Primary Dx); Stress-related physiological response affecting medical condition Start: 01-09-2025 End: 01-09-2025 ambulatory Vivian Brady [facility] Start: 01-09-2025 End: 01-09-2025 Patient encounter procedure Vivian Brady [facility] Start: 12-31-2024 ambulatory Vivian Brady Facilit y:[facility] Start: 12-31-2024 End: 12-31-2024 Telephone encounter Linda Mrac CMA [facility] Start: 12-26-2024 End: 12-26-2024 Orders Only Cisco Bonilla DO Work Phone: [facility] Comment on above: Chronic idiopathic c onstipation (Primary Dx); Hepatitis C virus infection without hepatic coma, unspecified chronicity Start: 12-20-2024 End: 12-20-2024 Orders Only Cisco Carcamolindenkiley DO Work Phone: [facility] Start: 12-17-2024 End: 12-26-2024 Orders Only Cisco Carrillong DO Work Phone: [facility] Comment on above: Irritable bowel synd chaitanya with both constipation and diarrhea (Primary Dx) Start: 12-14-2024 End: 12-14-2024 Orders Only Cisco Carrillong DO Work Phone: [facility] Comment on above: Anal fissure (Primar y Dx) Start: 12-12-2024 End: 12-12-2024 Refill Cisco Carrillong DO Work Phone: [facility] Start: 12-10-2024 End: 12-10-2024 ambulatory CISCO BONILLA [facility] Start: 12-10-2024 Encounter for genera l adult medical examination without abnormal findings [facility] Start: 12-10-2024 End: 12-10-2024 Patient encounter status Cisco Bonilla DO Work Phone: [facility] Start: 12-10-2024 End: 12-10-2024 Periodic preventive med est patient 40-64yrs Cisco Bonilla DO Work Phone: [facility] Comment on above: Well adult exam (Marilynn lawson Dx); Anxiety; Overweight; Iron overload; Encounter for screening for malignant neoplasm of prostate; Ex-smoker; Hypogonadism in male; Severe episode of recurrent major depressive disorder, without psychotic features ([facility]); Irritable bowel syndrome with both constipation and diarrhea Start: 12-10-2024 End: 12-10-2024 ambulatory [facility] Start: 12-10-2024 Encounter for genera l adult medical examination without abnormal findings [facility] Start: 11-02-2024 End: 11-02-2024 Orders Only Cisco Bonilla DO Work Phone: [facility] Start: 10-15-2024 End: 10-15-2024 Orders Only Cisco Bonilla DO Work Phone: [facility] Start: 09-26-2024 End: 10-03-2024 Telephone encounter [facility] Work Phone: [facility] Start: 09-13-2024 End: 09-13-2024 Orders Only Cisco Bonilla DO [facility] Start: 09-12-2024 End: 09-13-2024 Orders Only Cisco Bonilla DO Work Phone: [facility] Comment on above: Irritable bowel synd chaitanya with both constipation and diarrhea (Primary Dx) Start: 09-11-2024 End: 09-11-2024 Office outpatient visit 25 minutes Cisco Bonilla DO Work Phone: [facility] Comment on above: Irritable bowel synd chaitanya with both constipation and diarrhea (Primary Dx); Essential hypertension, benign; Anxiety; Encounter for screening for malignant neoplasm of prostate Start: 09-11-2024 End: 09-12-2024 Refill Cisco Bonilla DO Work Phone: [facility] Start: 05-15-2024 End: 05-15-2024 Emergency department patient visit CISCO BONILLA [facility] Start: 04-04-2024 End: 04-10-2024 Telephone encounter Cisco Bonilla DO Work Phone: [facility] Start: 04-03-2024 End: 04-03-2024 Patient encounter procedure Didi X Orzech [facility] Start: 03-16-2024 End: 03-16-2024 Orders Only Cisco Bonilla DO Work Phone: [facility] Start: 03-15-2024 End: 03-15-2024 Office outpatient visit 25 minutes Cisco Bonilla DO Work Phone: [facility] Comment on above: Irritable bowel synd chaitanya with both constipation and diarrhea (Primary Dx); Umbilical hernia without obstruction and without gangrene; Incisional hernia, without obstruction or gangrene; Anal fissure Start: 03-15-2024 End: 03-15-2024 ambulatory CISCO BONILLA [facility] Start: 03-14-2024 End: 03-14-2024 Orders Only Cisco Bonilla DO Work Phone: [facility] Start: 03-03-2024 End: 03-03-2024 Emergency department patient visit DO Cisco Bonilla Work Phone: [facility] Work Phone: Start: 02-20-2024 End: 02-20-2024 Orders Only Cisco Bonilla DO [facility] Start: 02-17-2024 End: 02-18-2024 Evaluation and management of inpatient JENNYFER AUGUSTIN [facility] Start: 02-13-2024 End: 02-15-2024 Telephone encounter Jennyfer Augustin DO [facility]: [facility] Start: 02-05-2024 End: 02-05-2024 Orders Only Cisco Bonilla DO Work Phone: [facility] Comment on above: Change in bowel habi ts (Primary Dx); Polyp of colon, unspecified part of colon, unspecified type Start: 02-02-2024 End: 02-02-2024 Patient encounter procedure Didi X Latoyadavid [facility] Start: 01-31-2024 End: 02-01-2024 Telephone encounter Barbara De La Torre CMA [facility] Start: 01-29-2024 End: 01-30-2024 Emergency department patient visit DO Cisco Bonilla Work Phone: [facility] Work Phone: Start: 12-09-2023 End: 12-09-2023 Office outpatient visit 15 minutes Michelle Francis APRN-SENIOR ELECTRICAL DESIGNER Work Phone: [facility] Comment on above: Irritable bowel synd chaitanya with constipation (Primary Dx); Gastroesophageal reflux disease, unspecified whether esophagitis present; 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) Start: 03-26-2022 End: 03-26-[address] CISCO BONILLA Facility: Start: 09-01-2021 End: 09-01-2021 ambulatory Tawnya Andre Other [facility] Other Start: 09-01-2021 Office outpatient vi sit 15 minutes Tawnya Andre [facility] Start: 08-11-2021 End: 08-11-2021 ambulatory Mary King Other [facility] Other Start: 08-11-2021 Office outpatient vi sit 15 minutes Mary King [facility] Start: 08-30-2016 End: 08-31-2016 Ambulatory OSIYEMI OSINOWO Facility:[facility] Procedures Date Procedure Procedure Detail Performing Clinician Start: 03-19-2025 Open reduction of fr acture with internal fixation Cisco Carrillong DO Work Phone: Start: 03-13-2025 X-ray of right foot Den sherman Carrillong DO Work Phone: Start: 02-28-2025 [facility]ULT [facility] Violette Maurer [employer] DES[employer] Work Phone: Start: 12-10-2024 Adult depression scr eening assessment Cisco Carcamolong DO Work Phone: Start: 12-10-2024 Lipid 1996 panel - S dereje or Plasma Sahil Bergeron RN Start: 03-15-2024 Follow-up visit Follow-up CISCO BONILLA Start: 03-15-2024 Adult depression scr eening assessment Ciscosherman Carcamolong DO Work Phone: Start: 03-03-2024 Diagnostic radiograp hy of abdomen DO Ciscosherman Carcamolong Work Phone: Start: 02-17-2024 Colonoscopy Cisco Fur long DO Work Phone: Start: 01-29-2024 CT of abdomen and pe lvis without contrast DO Ciscosherman Carcamolong Work Phone: Start: 12-09-2023 Adult depression scr eening assessment Michelle Francis [employer]ICAL DES[employer]ER Work Phone: Appendectomy Didi Allen Colonoscopy Didi [facility] Plan of Treatment Date Care Activity Detail Author Start: 02-16-2034 Screening for malign ant neoplasm of colon Colonoscopy [facility] Start: 12-10-2029 Lipid panel Lipid Screening [facility] Start: 12-10-2029 Prostate specific antigen measurement Prostate Cancer Screening Discussion [facility] Start: 12-11-2027 Diabetes Screening Diabetes Screenin g [facility] Start: 12-10-2025 Administration of varicella zoster vaccine Zoster (Shingles) Vaccine (1 of 2) [facility] Comment on above: Postponed from 09/04 (Patient Refused) Start: 12-10-2025 Adult BMI Screening Adult BMI Screen ing [facility] Start: 12-10-2025 COVID-19 Vaccine ( season) COVID-19 Vaccine () [facility] Comment on above: Postponed from 04/22 (Patient Refused) Start: 12-10-2025 Depression Screening Depression Scre ening [facility] Start: 12-10-2025 Tobacco Screening Tobacco Screening [facility] Start: 09-11-2025 Adult BMI Screening Adult BMI Screen ing [facility] Start: 09-11-2025 Tobacco Screening Tobacco Screening [facility] Start: 04-22-2025 Influenza vaccination [facility] Start: 04-17-2025 ambulatory Ambulatory Facility:[facility] Start: 04-02-2025 End: 04-02-2025 Admission to same day surgery center 04/02/2025 11:30 AM EDT [facility] Colorectal Surgery [address] [place] [address] Lydia Drake PA-C [address] [place] [address] f/u Colorectal Surgery Comment on above: f/u Start: 03-28-2025 End: 03-28-2025 Patient encounter procedure 03/28/2025 1:30 PM EDT OT/PT/Speech Visit [facility] [id number] [id number] Belkys Smith, PT, DPT tightness in my rectum, anus i cant push out poop [facility] Comment on above: tightness in my rect um, anus i cant push out poop Start: 03-19-[address] [facility] Start: 03-19-2025 X-ray of right foot [facility] Start: 03-19-2025 XR Foot - right [address] [facility] Start: 03-18-[address] [facility] Start: 03-15-2025 End: 03-15-2025 Admission to same day surgery center 03/15/2025 4:30 PM EDT [facility] Colorectal Surgery [address] [place] [address] George Navarrete DO [address] [place] [address] [facility] Colorectal Surgery Comment on above: [facility] Start: 03-15-2025 Adult BMI Screening Adult BMI Screen ing [facility] Start: 03-15-2025 Depression Screening Depression Scre ening [facility] Start: 03-15-2025 Tobacco Screening Tobacco Screening [facility] Start: 03-13-2025 X-ray of right foot XR foot RT min 3 V* [facility] Start: 03-13-2025 XR Foot - right GE [address] [facility] Start: 02-21-2025 End: 02-21-2025 Patient encounter procedure 02/21/2025 10:30 AM EDT Office Visit General Surgery [address] [place] [address] Jey Kapadia MD [address] [place] [address] Consult Botox Injection General Surgery Comment on above: Consult Botox Inject ion Start: 02-16-2025 Adult BMI Screening Adult BMI Screen ing [facility] Start: 02-16-2025 Screening for malign ant neoplasm of colon [facility] Start: 02-16-2025 Tobacco Screening Tobacco Screening [facility] Start: 02-05-2025 Tobacco Screening Tobacco Screening [facility] Start: 12-10-2024 End: 12-10-2025 CT Chest for screening WO contrast CT low dose lung screening (Annual) Imaging Routine Ex-smoker Expected: 12/10/2024, Expires: 12/10/2025 [facility] Comment on above: Expected: 12/10/2024 , Expires: 12/10/2025 Start: 12-10-2024 End: 12-10-2024 Patient encounter procedure 12/10/2024 1:00 PM EDT [facility] [address] [place] [address] Cisco Bonilla, [address], [place] [address] [facility] Start: 12-08-2024 Adult BMI Screening Adult BMI Screen ing [facility] Start: 12-08-2024 Depression Screening Depression Scre ening [facility] Start: 12-08-2024 Tobacco Screening Tobacco Screening [facility] Start: 09-26-2024 End: 09-26-2024 Patient encounter procedure 09/26/2024 2:00 PM EST Office Visit [facility] [address] [facility] [address] [place] [address] Aníbal Will, DO [address] [facility] [address] [place] [address] [facility] Start: 06-04-2024 End: 06-04-2024 Patient encounter procedure 06/04/2024 2:15 PM EDT Office Visit [facility] [address] [place] [address] Cisco Bonilla DO [address], [place] [address] [facility] Internal [facility] - Family Medicine Start: 04-22-2024 Covid-19 Vaccine ( season) Covid-19 Vaccine ( season) [facility] Start: 04-22-2024 COVID-19 Vaccine ( season) COVID-19 Vaccine () [facility] Start: 04-22-2024 Influenza vaccination Influenza Vacc ine [facility] Start: 03-15-2024 End: 03-15-2024 Patient encounter procedure 03/15/2024 3:45 PM EDT Office Visit [facility] Internal Medicine - Family Medicine [address] [place] [address] Cisco Bonilla, DO [address] [facility] [place] [address] [facility] Medicine - Family Medicine Start: 02-18-2024 Adult BMI Screening Adult BMI Screen ing [facility] Start: 02-18-2024 Depression Screening Depression Scre ening [facility] Start: 02-18-2024 Tobacco Screening Tobacco Screening [facility] Start: 02-17-2024 End: 02-17-2024 Admission to same day surgery center 02/17/2024 2:30 PM EDT - 02/17/2024 3:30 PM EDT Surgery [facility] - Endoscopy [address] [place] [address] Jennyfer Augustin, DO [address] [facility] [place] [address] COLONOSCOPY DIAGNOSTIC / SCREENING [31075 (CPT )] [facility] Comment on above: COLONOSCOPY DIAGNOST IC / SCREENING [48068 (CPT )] Start: 02-17-2024 End: 02-17-2024 Colonoscopy flx dx w/collj spec when pfrmd COLONOSCOPY DIAGNOSTIC / SCREENING change in bowel habits 02/17/2024 2:30 PM EDT [facility] Start: 02-17-2024 Subsequent hospital visit by physician 02/17/2024 2:30 PM EDT Hospital Encounter [facility] [address] [place] [id number] PatriziaJennyfer, DO [address] [place] [address] Change in bowel habits (Primary Dx) [facility] Comment on above: Change in bowel habi ts (Primary Dx) Start: 02-16-2024 End: 02-16-2024 ambulatory 02/16/2024 3:50 PM EDT Support Visit [facility] - Pre Admit [address] [place] [address] [facility] Start: 01-29-2024 CT Abdomen and Pelvi s WO contrast [facility] Start: 01-29-2024 CT of abdomen and pe lvis without contrast CT abdomen pelvis wo con [facility] Start: 10-28-2023 DTaP,Tdap and Td Vaccines (2 - Td or Tdap) DTaP,Tdap and Td Vaccines (2 - Td or Tdap) [facility] Start: 10-28-2023 Urine microalbumin profile DTaP,Tdap,Td Vaccine (2 - Td or Tdap) [facility] Start: 04-22-2023 COVID-19 Vaccine ( season) COVID-19 Vaccine ( season) [facility] Start: 2018 Administration of varicella zoster vaccine Zoster (Shingles) Vaccine (1 of 2) [facility] Start: 2018 Pneumococcal Vaccine : 50+ (1 of 1 - PCV) Pneumococcal Vaccine: 50+ (1 of 1 - PCV) [facility] Start: 2018 Shingrix Vaccine (1 of 2) Shingrix Vaccine (1 of 2) [facility] Start: 2013 Diabetes Screening Diabetes Screenin g [facility] Start: 2013 Prostate specific antigen measurement Prostate Cancer Screening Discussion [facility] Start: 2013 Screening for malign ant neoplasm of colon [facility] Start: 2003 Lipid panel Lipid Screening [facility] Start: 1987 Hepatitis B Vaccine (1 of 3 - 19+ 3-dose series) Hepatitis B Vaccine (1 of 3 - 19+ 3-dose series) [facility] Start: 1987 Pneumococcal Vaccine : 50+ (1 of 2 - PCV) Pneumococcal Vaccine: 50+ (1 of 2 - PCV) [facility] Start: 1987 Shingrix Vaccine (1 of 2) Shingrix Vaccine (1 of 2) [facility] Start: 1987 Urine microalbumin profile DTaP,Tdap,Td Vaccine (1 - Tdap) [facility] Start: 1986 Adult BMI Follow Up Plan Adult BMI [facility] Start: 1986 Anxiety Screening Anxiety Screening [facility] Start: 1986 Depression Screening Depression Scre ening [facility] Start: 1986 Hepatitis C screening Hepatitis C Sc reening [facility] Start: 1986 HIV screening HIV Screening [facility] End: 09-11-2025 CBC panel - Blood by Automated count CBC Lab Routine Irritable bowel syndrome with both constipation and diarrhea Essential hypertension, benign 1 Occurrences starting 09/11/2024 until 09/11/2025 [facility] Comment on above: 1 Occurrences starti ng 09/11/2024 until 09/11/2025 End: 12-10-2025 CBC panel - Blood by Automated count CBC without diff Lab Routine Hypogonadism in male 1 Occurrences starting 12/10/2024 until 12/10/2025 [facility] Comment on above: 1 Occurrences starti ng 12/10/2024 until 12/10/2025 End: 02-04-2025 Colonoscopy Colonoscopy GI Routine Change in bowel habits Polyp of colon, unspecified part of colon, unspecified type 1 Occurrences starting 02/05/2024 until 02/04/2025 [employer] Work Phone: Comment on above: 1 Occurrences starti ng 02/05/2024 until 02/04/2025 Colonoscopy flx dx w/collj spec when pfrmd COLONOSCOPY DIAGNOSTIC / SCREENING Change in bowel habits [facility] End: 09-11-2025 Comprehensive metabolic 2000 panel - Serum or Plasma Comprehensive metabolic panel Lab Routine Essential hypertension, benign 1 Occurrences starting 09/11/2024 until 09/11/2025 [facility] Comment on above: 1 Occurrences starti ng 09/11/2024 until 09/11/2025 End: 12-10-2025 Comprehensive metabolic 2000 panel - Serum or Plasma Comprehensive metabolic panel Lab Routine Well adult exam 1 Occurrences starting 12/10/2024 until 12/10/2025 [employer] Work Phone: Comment on above: 1 Occurrences starti ng 12/10/2024 until 12/10/2025 End: 12-10-2025 Iron [Mass/volume] in Serum or Plasma Iron level Lab Routine Iron overload 1 Occurrences starting 12/10/2024 until 12/10/2025 [facility] Comment on above: 1 Occurrences starti ng 12/10/2024 until 12/10/2025 End: 12-10-2025 Lipid 1996 panel - Serum or Plasma Lipid profile Lab Routine Well adult exam 1 Occurrences starting 12/10/2024 until 12/10/2025 [facility] Comment on above: 1 Occurrences starti ng 12/10/2024 until 12/10/2025 Patient Education [facility] Work Phone: Patient referral [facility] Work Phone: End: 09-11-2025 Prostatic specific antigen screen Prostatic specific antigen screen Lab Routine Encounter for screening for malignant neoplasm of prostate 1 Occurrences starting 09/11/2024 until 09/11/2025 [facility] Comment on above: 1 Occurrences starti ng 09/11/2024 until 09/11/2025 End: 12-10-2025 Prostatic specific antigen screen Prostatic specific antigen screen Lab Routine Encounter for screening for malignant neoplasm of prostate 1 Occurrences starting 12/10/2024 until 12/10/2025 [facility] Comment on above: 1 Occurrences starti ng 12/10/2024 until 12/10/2025 End: 09-11-2025 TSH with Reflex TSH with Reflex Lab Routine Irritable bowel syndrome with both constipation and diarrhea Essential hypertension, benign Anxiety 1 Occurrences starting 09/11/2024 until 09/11/2025 [facility] Work Phone: Comment on above: 1 Occurrences starti ng 09/11/2024 until 09/11/2025 End: 12-10-2025 TSH with Reflex TSH with Reflex Lab Routine Anxiety Overweight 1 Occurrences starting 12/10/2024 until 12/10/2025 [facility] Comment on above: 1 Occurrences starti ng 12/10/2024 until 12/10/2025 Immunizations Immunization Date Immunization Notes Care Provider Dorene au 06-20-2021 influenza virus vaccine, unspecified formulation Michelle Tito [employer] Work Phone: [facility] 06-20-2021 influenza, injectabl e, quadrivalent, preservative free Michelle Tito [employer] Work Phone: [facility] 06-20-2021 SARS-CoV-2 (COVID-19 ) mRNA BNT-162b2 vax Didi Orzech [facility] 12-08-2020 SARS-CoV-2 (COVID-19 ) mRNA BNT-162b2 vax Didi Orzech [facility] 11-18-2020 SARS-CoV-2 (COVID-19 ) mRNA BNT-162b2 vax Didi Orzech [facility] 04-06-2020 influenza virus vaccine, unspecified formulation Didi Orzech [facility] 04-06-2020 influenza, injectabl e, quadrivalent, preservative free Michelle Tito [employer] Work Phone: [facility] 06-07-2019 influenza virus vaccine, unspecified formulation Didi Orzech [facility] 06-07-2019 influenza, injectabl e, quadrivalent, preservative free Michelle Francis [facility] Work Phone: [facility] [employer] 10-27-2013 tetanus toxoid, redu brock diphtheria toxoid, and acellular pertussis vaccine, adsorbed Michelle Francis [employer] Work Phone: [facility] Payers Date Payer Category Payer Self-pay [id number] 2024 Medicaid [id number] 2024 Medicaid [id number] 1968 Unknown [id number] 1968 Unknown [id number] [id number] 1968 Unknown [id number] [id number] 1968 Unknown [id number] [id number] 1968 Unknown [id number] 2.16.840.1.076711.3.579.2.1285 1968 Unknown [id number] [id number] 1968 Unknown [id number] [id number] 1968 Unknown [id number] 2.16.840.1.121024.3.579.2.1286 1968 Unknown [id number] 2.16.840.1.984924.3.579.2.1286 1968 Unknown [id number] [id number] 1968 Unknown [id number] [id number] 1968 Unknown [id number] [id number] 1959 Private Health Insurance [id number] Medicaid [id number] Unknown [id number] 2.1 [id number] Unknown [place] BC/BS [id number] Unknown [id number] [id number] Unknown [id number] [id number] Unknown [id number] Social History Date Type Detail Facility Unknown if ever smoked [facility] Start: 09-11-2024 End: 02-28-2025 Sex Assigned At [facility] Start: 07-23-1985 End: 03-03-2024 Tobacco smoking status NHIS Smoker (finding) [facility] Start: 1970 Sex Assigned At Male [facility] Start: 12-09-2023 End: 02-02-2024 Tobacco smoking status Ex-smoker (finding) [facility] Start: 11-11-2015 Tobacco smoking status Never [facility] Start: 07-23-1985 End: 12-20-2018 History of tobacco use Cigarette Smoker [facility] Start: 12-09-2023 End: 02-28-2025 Cigarettes smoked current (pack per day) - Reported 1 [facility] History of tobacco use Passive smoker [facility] Start: 12-09-2023 Tobacco use and exposure Smokeless tobacco non-user [facility] Start: 09-11-2024 End: 12-10-2024 Alcoholic beverage intake Current drinker of alcohol (finding) [facility] Has the [employer], [employer], or [employer] threatened to shut off services in your home in past 12Mo Yes [facility] Are you now , , , , never or living with a partner? Never [facility] How often to you hav e a drink containing alcohol? Monthly or less [facility] How often do you hav e 6 or more drinks on 1 occasion? Less than monthly [facility] How hard is it for y ou to pay for the very basics like food, housing, medical care, and heating Very hard [facility] Do you feel stress - tense, restless, nervous, or anxious, or unable to sleep at night because your mind is troubled all the time - these days [OSQ] Very much [facility] Start: 08-01-2022 Education 14 [facility] Start: 08-04-2022 Tobacco Comment vape, today [facility] Start: 10-12-2019 Alcohol Comment Occasional [facility] Start: 1970 Sex assigned at Not on file [facility] Start: 03-27-2015 Sex Male (finding) [facility] How many standard drinks containing alcohol do you have on a typical day? 10 or more [facility] Sexual Orientation [facility] Tobacco smoking stat us NEIS Tobacco smoking consumption unknown [facility] Start: 03-03-2024 End: 03-19-2025 Tobacco smoking status NEIS Smokes tobacco daily (finding) [facility] Start: 03-07-2025 Gender identity Identifies as male gender (finding) [facility] Start: 03-07-2025 Sexual orientation Heterosexual (finding) [facility] Goals Date Patient Goal Desired Activity /State Personal health goal Comment on above: Formatting of this n ote might be different from the original. Evaluation of progress towards goal: with support from friends and family, patient needs to fllow up with [facility] Functional Status Date Assessment Result Facility 01-09-2025 Functional Status N/A [facility] 02-02-2024 Functional Status N/A [facility] Clinical Notes 08-11-2021 to 04-03-2025 Lydia Drake PA-C - 04/03/2025 8:29 AM EDTSLydia thorne PA-C - 04/02/2025 11:30 AM EDTTelephone Encounter - Lydia Drake PA-C - 03/07/2025 1:37 PM EDTPatient Instructions Note Date & Type Note Facility 04-03-2025 Note HNO ID: [id number] Author: LYDIA DRAKE PA-C Service: ? Author Type: Physician Agricultural Services Director Type: Progress Notes Filed: 04/03/2025 08:41 Note Text: Pelvic Floor Multidisciplinary Conference Presentation Date of conference: April 03, 2025. Presenter/specialty: SHERRI Drake PA-C History of present illness: Chai Arnold is a 54 year old male with [...] Anticipated surgical procedure: none Lydia Drake PA-C [facility] 04-03-2025 History of Presen t illness Narrative Pelvic Floor Multidisciplinary Conference Presentation Date of conference: April 03, 2025. Presenter/specialty: SHERRI Drake PA-C History of present illness: Chai Arnold is a 54 year old male with [...] Lydia Drake PA-C documented in this encounter [facility] 04-02-2025 History of Presen t illness Narrative COLORECTAL SURGERY VIRTUAL VISIT FOLLOW UP 04/02/2025 I have communicated my name and active licensure. The patient's identity and physical location were verified at the time of this visit. Either the patient or their legal pharmaceutical specialty representative has been informed of the risks and benefits of -- and alternatives to -- treatment through a remote evaluation and consents to proceed with the evaluation remotely. I had a virtual visit with Mr. Arnold today for follow up of Constipation, unspecified constipation type (primary encounter diagnosis) Rectal spasm Pelvic floor dysfunction Anxiety Distressed about housing issues Orthostatic dizziness. UPDATED HISTORY: Chai Arnold is a 54 year old male with chronic constipation, anxiety, HTN, BPH, and a 15-year history of benzodiazepine use, presenting for follow-up of severe constipation with outlet dysfunction. He was first seen on 02/28/[address] Brady for consideration of Botox injection. He reports a 2-year history of severe difficulty with evacuation, significant abdominal and rectal pain (6/10), bloating, and a sensation of being full of gas. He is unable to pass stool unless it is liquid. He also reports dizziness and blurry vision upon standing, which he associates with severe pain and straining to defecate. He attributes the [...] unable to go outside or interact with others. He has declined referrals to social work and [...] Performed Medical Decision Making: Assessment Assessment: Chai Arnold is a 54 year old male who I originally saw on February 28, 2025. He was referred to [facility] for anorectal manometry by Dr. Brady for [...] declined. - Consulted with colorectal surgeon Dr. George Navarrete regarding Botox injections; she agreed it would be an option. - Patient did not show up for her virtual appointment with surgeon for follow-up to discuss botox ( patient not aware of appoitnment) Plan: 1. Constipation, [...] laxatives and stool softeners; consider referral to [facility] if unable to see local GI anymore ( was told that [facility] would be managing him from now [...] evaluate and manage orthostatic symptoms. Recording using Fwd: Power software for draft documentation of the visit was discussed with the patient/authorized pharmaceutical specialty representative; all questions welcomed and answered. Patient/authorized pharmaceutical specialty representative agreed to proceed JAME Segundo I spent a total of 33 minutes on the date of the service which included preparing to see the patient, [id number] patient care, completing clinical documentation, obtaining and/or reviewing separately obtained history, performing a medically appropriate examination, counseling and educating the patient/family/caregiver, communicating with other HCPs (not separately reported), and care coordination (not separately reported). documented in this encounter [facility] 04-02-2025 Note HNO ID: [id number] Author: LYDIA DRAKE PA-C Service: ? Author Type: Physician Agricultural Services Director Type: Progress Notes Filed: 04/02/2025 12:17 Note Text: COLORECTAL SURGERY VIRTUAL VISIT FOLLOW UP 04/02/2025 I have communicated my name and active licensure. The patient's identity and physical location were verified at the time of this visit. Either the patient or their legal pharmaceutical specialty representative has been informed of the risks and benefits of -- and alternatives to -- treatment through a remote evaluation and consents to proceed with the evaluation remotely. I had a virtual visit with Mr. Arnold today for follow up of Constipation, unspecified constipation type (primary encounter diagnosis) Rectal spasm Pelvic floor dysfunction Anxiety Distressed about housing issues Orthostatic dizziness. UPDATED HISTORY: Chai Arnold is a 54 year old male with chronic constipation, anxiety, HTN, BPH, and a 15-year history of benzodiazepine use,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 Telephone Encounter - Barbara De La Torre CMA - 12/17/2024 3:24 PM EDT Patient called and stated he missed his apt in [place] with jaylyn/ent so they will not see him anymore. Can you refer him to someone else. [facility]04-28-2025 Telephone encounter Note* Telephone Encounter - Cisco Bonilla DO - 12/17/2024 3:24 PM EDT Okay. I sent another referral this time to a dentistry professor in [place] -Dr. Alcaraz. If he can not make [...] treat it but there was no official recordof normal labs following treatment which is usually routine to do. [facility]04-21-20[facility] History of Present illness Narrative* Cisco Bonilla DO - 12/10/2024 1:00 PM EDT Subjective Patient ID: Chai Arnold is a 54 y.o. male. Chai presents today for his annual wellness. He has no new problems to report. His rectal pain is better but he still feels at times that is he has stool higher up in rectum. Hisbowel movements are basically constipation alternating with diarrhea. [...] did not reveal any inflammatory bowel disease. Thegastroenterologist in [place] not want to see him. He [...] an online telehealth doctor who sends the medicationin the mail. He does test for fentanyl and presence of benzodiazepine. He is also taking testosterone on his own through an online physician. Annual Exam The following portions of the patient's history were reviewed and updated as appropriate: allergies, current medications, past family history, past medical history, past social history, past surgicalhistory, problem list, and medication reconciliation was completed including current medication andpost discharge medication. Review of Systems Constitutional: Negative. [...] appear clear Nose: Nose normal. Mouth/Throat: Lips: [place]. Mouth: Mucous membranes are moist. Dentition: Abnormal [...] 2019. He is a candidate for low-dose CTscan. Risks and benefits of tests done. He agrees to the test. He would pursue further evaluation and treatment if needed. Hypogonadism in male - CBC without diff; Future Check CBC Severe episode of recurrent major depressive disorder, without psychotic features ([facility]) He declines medications. Irritable bowel syndrome with [...] and irritable bowel syndrome. 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 OUT documented in [facility]02[facility] Miscellaneous Notes* Telephone Encounter - Marisa Reinoso - 09/26/2024 2:19 PM EST New Patient NS 09/26/2024 * Telephone Encounter - Suki Islas RN - 09/26/2024 2:19 PM EST Discharge entered [facility] Telephone encounter Note* Telephone Encounter - Marisa Reinoso - 09/26/2024 2:19 PM EST New Patient NS 09/26/2024 [facility] Telephone encounter Note* Telephone Encounter - Suki Islas RN - 09/26/2024 2:19 PM EST Discharge entered [facility]01-22-20[facility] Miscellaneous Notes* Telephone Encounter - Betty Wild - 09/12/2024 2:21 PM EST Dittys office is refusing to see him since Dr augustin did his colonoscopy. He wants him to see patrizia as a specialist instead. Alok words patrizia started it that is who he needs to follow up with explained to dittys office that he does not specialize in that field that he is a primary care and theysaid that it does not matter Ditty will not see him. Can we please get him a referral to a different gastro. Also Dittys Nurse Danuta was rude and getting an attitude when I was explaining that luigisis not taking new patients and that is why we referred him to a specialist * Telephone Encounter - Betty Wild - 09/12/2024 2:21 PM EST Can we get this as an urgent referral * Telephone Encounter - Cisco Bonilla DO - 09/12/2024 2:21 PM EST Send a referral to GI specialist at [facility] documented in this [facility] Telephone encounter Note* Telephone Encounter - Betty Wild - 09/12/2024 2:21 PM EST Dittys office is refusing to see him since Dr augustin did his colonoscopy. He wants him to see patrizia as a specialist instead. Alok augustin started it that is who he needs to follow up with explained to dittys office that he does not specialize in that field that he is a primary care and theysaid that it does not matter Ditty will not see him. Can we please get him a referral to a different gastro. Also Dittys Nurse Danuta was rude and getting an attitude when I was explaining that yuhasis not taking new patients and that is why we referred him to a specialist [facility]01[facility] Telephone encounter Note* Telephone Encounter - [facility] Perlitaevelina - 09/12/2024 2:21 PM EST Can we get this as an urgent referral [facility]01-[facility] Telephone encounter Note* Telephone Encounter - Cisco Bonilla DO - 09/12/2024 2:21 PM EST Send a referral to GI specialist at [facility]01-22-2025 Miscellaneous Notes* Telephone Encounter - Bettygeorge Wild - 09/12/2024 1:47 PM EST Patient called, metamucil is not covered by insurance but they will cover benifiber 240g [facility] [place] documented in this encounterC[facility]01-22-[facility]25 Telephone encounter Note* Telephone Encounter - Bettygeorge Wild - 09/12/2024 1:47 PM EST Patient called, metamucil is not covered by insurance but they will cover benifiber 240g [facility] [place] [facility]01-[facility] History of Present illness Narrative* Cisco Bonilla DO - 09/11/2024 2:15 PM EST Subjective Patient ID: Chai Maurer Miahtrev is a 54 y.o. male. Chai presents today for recheck of his abdominal pain. He had to go to the ER again because of severe abdominal pain. He had a CT scan and labs and no serious problem was uncovered. This has been going on for about a year now. He does have an appointment coming up with a dentistry professor in September. He had to cancel his last appointment because he was having diarrhea and was afraid to leave the house because he might have an accident. The ER did give him Bentyl which did help. He did not think that less than helped at all. He stopped the FiberCon because it was not helping. He would rather have Metamucil. He called the dentistry professor office and they suggested a cleaned out. [...] gets it on the Internet on the dark web . He used to take benzodiazepines and admitted to abuse of benzodiazepines but has not been taking them at all lately except for a prescription he got on the Internet for 20 pills. He took those in 20 days and then stopped. They do work when he takes them. He did see a psychiatrist nurse practitioner who wouldnot prescribe benzodiazepines. They prescribed him Vistaril, BuSpar and an antidepressant but that cocktail was ineffective. He took Seroquel in the past which worked initially but then eventually itlost its effectiveness. He stopped his blood pressure [...] past medical history, past social history, past surgicalhistory, problem list, and medication reconciliation was completed including current medication andpost discharge medication. Review of Systems Constitutional: Positive for unexpected weight change (Weight actually increased in the last 3 months). Respiratory: Negative. Gastrointestinal: Positive for abdominal distention, abdominal pain, constipation and diarrhea. Psychiatric/Behavioral: Positive for sleep disturbance. The patient is nervous/anxious. Objective Physical Exam Vitals reviewed. Exam conducted with a non profit job titles present (Leilani Han MS 3). Constitutional: General: [...] total) by mouth every 6 (six) hours asneeded (cramping and bloating). I suspect his underlying [...] mouth in the morning. documented in this [facility]08-14-2024 Miscellaneous Notes* Telephone Encounter - Betty Wild - 04/04/2024 10:24 AM EDT ----- Message from Dr. Cisco Bonilla DO sent at 03/15/2024 7:03 PM EDT ----- Regarding: GI/BP recheck Please set up * Telephone Encounter - Betty Wild - 04/04/2024 10:24 AM EDT Mailbox full * Telephone Encounter - Betty Wild - 04/04/2024 10:24 AM EDT Scheduled documented in this [facility]08-14-2024 Telephone encounter Note* Telephone Encounter - Betty Wild - 04/04/2024 10:24 AM EDT ----- Message from Dr. Cisco Bonilla DO sent at 03/15/2024 7:03 PM EDT ----- Regarding: GI/BP recheck Please set up [facility] Telephone encounter Note* Telephone Encounter - Betty Wild - 04/04/2024 10:24 AM EDT Mailbox full [facility] Telephone encounter Note* Telephone Encounter - Betty Wild - 04/04/2024 10:24 AM EDT Scheduled [facility] History of Present illness Narrative* Cisco Bonilla DO - 03/15/2024 3:45 PM EDT Subjective Patient ID: Chai Arnold is a 53 y.o. male. Chai presents [...] was getting liquidy stools-6 and 7 on Birchleaf stool scale. He used fiber supplement in the past with benefit but he stopped it along the way for some reason. He doesn't have a fever or blood. He had a colonoscopy recently. He has lost 40-50# since this started. He said his diet wasbad before this started as he would eat fast food all the time and then he started to eat healthy and then he started having problems. He went to the ER while in rehab and he had constipation so bad that he had urinary retention and had a washington put in. He didn't want to go back to rehab with the washington so it was pulled. He continued to have problems but it is mostly liquidy now. He has been to [facility] 3 times. He was given something for pain and told he had a rectal fissue but the suppository andNTG ointment were not covered and needed a [...] past medical history, past social history, past surgicalhistory, problem list, and medication reconciliation was completed including current medication andpost discharge medication. Review of Systems Constitutional: Positive [...] BSS. I recommended to stop those meds andstart a fiber supplement. Will give Levsin and [...] (125 mcg total) by mouth every 4 (four)hours as needed for cramping. - polycarbophil (FIBERCON) 625 mg tablet; Take 1 tablet (625 mg total) by mouth in the morning and 1 tablet (625 mg total) before bedtime. - meloxicam (MOBIC) 15 mg tablet; Take 1 tablet (15 mg total) by mouth daily as needed for pain (cramping). documented in this encounterC[facility]06-24-2024 Miscellaneous Notes* Telephone Encounter - Betty Wild - 02/13/2024 12:02 PM EDT Patient said suflave is 130 dollars, is there something else he can try or a coupon to use * Telephone Encounter - Linda Marc CMA - 02/13/2024 12:02 PM EDT Pt has medicaid My Bad Please SEND in the SUPREP. . * Telephone Encounter - Jennyfer Augustin DO - 02/13/2024 12:02 PM EDT Message noted. The only prep that is covered is the old fashioned Golytely prep * Telephone Encounter - Gloria Rodriguez CMA - 02/13/2024 12:02 PM EDT He is Medicaid so whatever his insurance covers * Telephone Encounter - Jennyfer Augustin DO - 02/13/2024 12:02 PM EDT Message noted. Rx for GoLYTELY sent to pharmacy documented in this encounterCleveland [facility]06-24-2024 Telephone encounter Note* Telephone Encounter - Betty Wild - 02/13/2024 12:02 PM EDT Patient said suflave is 130 dollars, is there something else he can try or a coupon to use [facility] Telephone encounter Note* Telephone Encounter - Linda Marc CMA - 02/13/2024 12:02 PM EDT Pt has medicaid My Bad Please SEND in the SUPREP. . [facility] Telephone encounter Note* Telephone Encounter - Jennyfer Augustin DO - 02/13/2024 12:02 PM EDT Message noted. The only prep that is covered is the old fashioned Golytely prep [facility]06-24-2024 Telephone encounter Note* Telephone Encounter - Gloria Rodriguez CMA - 02/13/2024 12:02 PM EDT He is Medicaid so whatever his insurance covers [facility] Telephone encounter Note* Telephone Encounter - Jennyfer Augustin DO - 02/13/2024 12:02 PM EDT Message noted. Rx for GoLYTELY sent to pharmacy [facility]06-11-2024 Miscellaneous Notes* Telephone Encounter - Barbara De La Torre CMA - 01/31/2024 3:09 PM EDT Patient called and was in the ER for Urinary re tension. His bowel movements ar still not good. Since I can not get him in for an ER follow up soon what do you suggest he do? He does see urology on * Telephone Encounter - Cisco Bonilla DO - 01/31/2024 3:09 PM EDT He can use MiraLax 17 g in 8 oz of water daily * Telephone Encounter - Barbara De La Torre CMA - 01/31/2024 3:09 PM EDT Left message via documented in this encounterCleveland [facility]06-11-2024 Telephone encounter Note* Telephone Encounter - Barbara De La Torre CMA - 01/31/2024 3:09 PM EDT Patient called and was in the ER for Urinary re tension. His bowel movements ar still not good. Since I can not get him in for an ER follow up soon what do you suggest he do? He does see urology on [facility]-11-2024 Telephone encounter Note* Telephone Encounter - Cisco Bonilla DO - 01/31/2024 3:09 PM EDT He can use MiraLax 17 g in 8 oz of water daily [facility]-11-2024 Telephone encounter Note* Telephone Encounter - Barbara De La Torre CMA - 01/31/2024 3:09 PM EDT Left message via [facility]04-19-20[facility] History of Present illness Narrative* Michelle Francis APRN-LIDA - 12/09/2023 9:00 AM EDT [address] [place] [id number] Patient: Chai Arnold Date of : 1970 Encounter Date: 12/09/2023 [...] dry or when he takes stool softeners pencilthin like a 4. On the Birchleaf stool scale and he has tried Metamucil and MiraLax. He denies any hemorrhoids or blood in his stool. His last colonoscopy was 4 years ago that showed polyps and diverticulosis and he knows he is due for another colonoscopy next year. Patient has been struggling with weaning off his Xanax. 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 Past Medical History: Diagnosis Date Anxiety Depression Past Surgical History: Procedure Laterality Date APPENDECTOMY COLONOSCOPY N/A 10/17/2019 Performed by Jennyfer Augustin DO at [facility] DECOMPRESSION FASCIOTOMY LEG 12/24/2015 Current Outpatient [...] by mouth 3 (three) times a day asneeded for anxiety. 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) Other orders - omeprazole (PriLOSEC) 20 mg capsule; Take 1 capsule (20 mg total) by mouth in the morning. - hydrOXYzine (VISTARIL) 50 mg capsule; Take 1 capsule (50 mg total) by mouth 3 (three) times a dayas needed for anxiety. Follow-up: Start Linzess, mechanism of action and side effects discussed with patient and 12 sample tabs were given from the office plus a free 30 day trial card. He should stop NSAIDs that he was taking for his abdominal pain but it is likely making his pain in his epigastric area worse. He can start PPI for2 weeks. X- rays and CT at the beginning of the month from ER were reviewed today. He should slowly wean off his Xanax. He understands we will not prescribe this in the office. Resources such as [facility] in [place] were given. It was also recommended that he apply at [facility] for primary care services and psychiatric services [...] LEVIN APRN-CNP 12/09/23 1230 documented in this encounterCleveland Clinic Foundation01-11-2022 Evaluation note* Encounter Date Diagnosis Assessment Notes Treatment Notes Treatment Clinical Notes Aug, Contact with and (suspected) exposure [...] Patient care instructions given in writting by [facility] document. [facility] Other 12-21-2021 Evaluation note* Encounter Date Diagnosis [...] Patient care instructions given in writting by [facility] document. [facility] Other Evaluation + Plan note Future Appointments Appointment Date:04/03/2024 01:00:00 PM Scheduled Provider:JOSEPH Allen APRN, Didi Martin Location:[facility] Appointment Type:URO Office Visit [facility] evaluation + Plan note Future Appointments Appointment Date:04/11/2025 10:45:00 AM Scheduled Provider:Vivian Brady MD Location:[facility] Dig[facility]ive Health Appointment Type:[facility] Follow Up [facility] evaluation noteNo assessment information available [facility] Work Phone: evaluation note* Diagnosis Irritable bowel syndrome with both constipation and diarrhea- Primary Essential hypertension, benign Anxiety Anxiety state, unspecified Encounter for screening for malignant neoplasm of prostate documented in this encounter [facility]* Diagnosis Irritable bowel syndrome with both constipation and diarrhea- Primary documented in this encounter [facility]* Diagnosis Irritable bowel syndrome with constipation- Primary Irritable bowel syndrome Gastroesophageal reflux disease, unspecified whether esophagitis present 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) [facility] Diagnosis Change in bowel habits- Primary Other symptoms involving digestive system Polyp of colon, unspecified part of colon, unspecified type [facility]* Diagnosis Irritable bowel syndrome with both constipation and diarrhea- Primary Umbilical hernia without obstruction and without gangrene Incisional hernia, without obstruction or gangrene Anal fissure [facility]* Diagnosis Well adult exam- [...] constipation and diarrhea documented in this [facility]* Diagnosis Anal fissure- Primary [facility] this encounter [facility]* Diagnosis Irritable bowel syndrome with both constipation and diarrhea- Primary documented in this encounter [facility]* Diagnosis Chronic idiopathic constipation- Primary Unspecified constipation Hepatitis C virus infection without hepatic coma, unspecified chronicity documented in this encounter [facility]* Diagnosis 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 Outlet dysfunction constipation Stress-related physiological response affecting medical condition Psychic factors associated with diseases classified elsewhere [facility] Diagnosis Onset Date Resolution Status Admit Date Fracture of fifth metatarsal bone of right foot acute February 18, 2025 1:30pm [facility] Work Phone: Evaluation note* Diagnosis Pelvic floor dysfunction Pelvic muscle wasting Pelvic floor dysfunction- Primary Pelvic muscle wasting Rectal spasm Anal spasm Constipation, unspecified constipation type [facility]* Diagnosis Pelvic floor dysfunction- Primary Pelvic muscle wasting Rectal spasm Anal spasm Constipation, unspecified constipation type [facility]* Diagnosis Anxiety Anxiety state, unspecified documented [facility] encounter [facility]* Diagnosis Constipation, unspecified constipation type- Primary Rectal spasm Anal spasm Pelvic floor dysfunction Pelvic muscle wasting Anxiety Anxiety state, unspecified Distressed about housing issues Other specified housing or economic circumstances Orthostatic dizziness documented [facility]* Diagnosis Rectal spasm- Primary Anal spasm Constipation, unspecified constipation type Pelvic floor dysfunction Pelvic muscle wasting Anxiety Anxiety state, unspecified Chronic abdominal pain Abdominal pain, unspecified site Chronic rectal pain Anal or rectal pain documented in this encounter [facility] general Narrative - Reported* Type Description Date Medical History insomnia Medical History anxiety Medical History HTN Surgical History appendix removed Surgical History compartment syndrome left hand 2016 Hospitalization History see surgical hx [facility] Other Hospital course Narrative No data available for this section [facility] Hospital Discharge instructions Additional Instructions Wear leg bag with [place] catheter Follow-up with urology Return if symptoms are worseMiami [facility] Work Phone: Hospital Discharge instructions No data available for this section [facility] Hospital Discharge instructions Additional Instructions Dr. Avina's discharge instructions Maintain your postoperative splint until your follow-up appointment. You should maintain nonweightbearing to your operative extremity until your follow-up appointment and x-rays are obtained. You should elevate the injured extremity for the next 48 to 72 hours, as often as possible. You should ice the surgical area, 20 minutes with ice on and then 20 minutes off, for 3 hours a day for the first week. Take your medications as prescribed. You should not operate machinery while taking narcotic pain medications or while wearing your boot. You may take NSAIDs/Tylenol [id number] as indicated on the bottle. You should take aspirin 81 mg twice daily for 3 weeks for DVT prophylaxis, unless you are already taking anticoagulation which you may resume the day after your surgery. Please abstain from using tobacco products. If you have any increasing pain, fever chills, or abnormal drainage or surgical wound problems you should call the office. Your follow-up should be scheduled with Dr. Avina's office at [facility]. At your follow-up we will remove your splint and sutures. Please call to confirm your follow-up appointment. Dr. Ehsan Avina [facility] [address] [place], [place] [id number] [phone] Work Phone: Instructions* Attachments The following attachments cannot be sent through Care Everywhere. * IBS Diet (Namibian) documented in this encounterProDun[facility] Hospital SystemInstructionsNot on file documented in this encounterProAthens-Limestone Hospital AllFreed SystemInstructionsNot on file documented in this encounterProDunlap Memorial Hospital SystemInstructionsNot on file documented in this encounterProDunlap Memorial Hospital SystemInstructionsNot on file documented in this encounterProDunlap Memorial Hospital SystemInstructionsNot on file documented in this encounterProMedica Health SystemInstructionsNot on file documented in this encounterProMedica Health SystemInstructionsNot on file documented in this encounterProMedica Health SystemInstructionsNot on file documented in this encounterProMedica Health SystemInstructionsNot on file documented in this encounterProMedica Health SystemInstructionsNot on file documented in this encounterProMedica Health SystemInstructionsNot on file documented in this encounterProMedica Health SystemInstructionsNot on file documented in this encounterProMedica Health SystemInstructionsNot on file documented in this encounterProMedica Health SystemProgress note No data available for this section [facility] Cammie Amin Reason for referral (narrative)* Medication Prior Authorization - Pending Review Specialty Diagnoses / Procedures Referred By Contac t Referred To Contact Cisco Bonilla DO [address], [facility] [place] [address] Phone: tel: fax: Referral ID Status Reason Start Date Expiration Date V isits Requested Visits Authorized [id number] Pending Review 1 1 [facility] System[facility] for referral (narrative)* Medication Prior Authorization - Pending Review Specialty Diagnoses / Procedures Referred By Contac t Referred To Contact Cisco Bonilla DO [address], [facility] [place] [address] Phone: tel: fax: Referral ID Status Reason Start Date Expiration Date V isits Requested Visits Authorized [id number] Pending Review 1 1 [facility] System[facility] for referral (narrative)* Medication Prior Authorization - Pending Review Specialty Diagnoses / Procedures Referred By Contac t Referred To Contact Cisco Bonilla DO [address], [facility] [place] [address] Phone: tel: fax: Referral ID Status Reason Start Date Expiration Date V isits Requested Visits Authorized [id number] Pending Review 1 1 [facility] for referral (narrative)No reason for referral information availableTogus [facility] Medical Center Work Phone: Summary Purpose Family History No Family History Records Found Relationship Condition Age at Onset Recorded Date/T amanuel father Heart disease Unknown mother Rheumatoid arthritis Unknown Advance Directives No Advanced Directives Records Found [...] urogential Chief Complaint urogential unable to urnitate Chief Complaint Admit Date ER [facility] RT FOOT FX WX February 18, 2025 1:3 0pm Reason for Visit Admit Date Fracture of fifth metatarsal bone of rig ht foot February 18, 2025 1:30pm Chief Complaint Admit Date ER [facility] RT FOOT FX WX February 18, 2025 1:3 0pm S92.351A - Displaced fracture of fifth m etatarsal March 13, 2025 11:55am 2-3 WK RECHECK March 13, 2025 3:11 pm Reason for Visit Admit Date Fracture of fifth metatarsal bone of rig ht foot February 18, 2025 1:30pm Fracture of fifth metatarsal bone of rig ht foot March 13, 2025 3:11pm Chief Complaint Admit Date ER [facility] RT FOOT FX WX February 18, 2025 1:3 0pm S92.351A - Displaced fracture of fifth m etatarsal March 13, 2025 11:55am 2-3 WK RECHECK March 13, 2025 3:11 pm Fracture March 18, 2025 11:1 9am Chief Complaint Admit Date ER [facility] RT FOOT FX WX February 18, 2025 1:3 0pm Fracture March 12, 2025 12:0 0am S92.351A - Displaced fracture of fifth m etatarsal March 13, 2025 11:55am 2-3 WK RECHECK March 13, 2025 3:11 pm Fracture March 18, 2025 11:1 9am Fracture March 19, 2025 10:5 0am Reason for Referral Specialty Diagnoses / Procedures Referred By Contac t Referred To Contact Cisco Bonilla, [address], [place] [address] Referral ID Status Reason Start Date Expiration Date V isits Requested Visits Authorized [id number] Pending Review 03/14/2024 03/14/2025 1 1 Specialty Diagnoses / Procedures Referred By Contac t Referred To Contact Diagnoses Change in bowel habits Polyp of colon, unspecified part of colon, unspecified type Procedures Colonoscopy Cisco Bonilla, [address], [place] [address] Referral ID Status Reason Start Date Expiration Date V isits Requested Visits Authorized [id number] Pending Review 02/05/2024 02/04/2025 1 1 Additional Source Comments (unrecognized sect ion and content) No Status Records FoundNo Status Records FoundNo Status Records FoundNo Status Records FoundNo Status Records FoundNo Status Records FoundNo Status Records FoundNo Status Records Found INFORMATION SOURCE (unrecogn ized section and content) DATE CREATED AUTHOR 02/14/2018 [facility] DATE CREATED AUTHOR AUTHOR'S ORGANIZ ATION 03/29/2022 [facility] DATE CREATED AUTHOR AUTHOR'S ORGANIZ ATION 05/18/2024 [facility] DATE CREATED AUTHOR AUTHOR'S ORGANIZ ATION 12/10/2024 [facility] DATE CREATED AUTHOR AUTHOR'S ORGANIZ ATION 12/11/2024 [facility] DATE CREATED AUTHOR AUTHOR'S ORGANIZ ATION 03/31/2025 [facility] DATE CREATED AUTHOR AUTHOR'S ORGANIZ ATION 04/03/2025 [facility] DATE CREATED AUTHOR AUTHOR'S ORGANIZ ATION 04/06/2025 Edson Vasquez [facility] REASON FOR VISIT (unrecogniz ed section and content) Reason Comments Abdominal Pain Reason Onset Date Comments Med Refill 09/11/2024 Reason Comments Chronic Bowel issues Reason Comments Follow-up Reason Comments Annual Exam Reason Onset Date Comments Med Refill 12/12/2024 Reason Comments Med Change Request Reason Onset Date Comments Med Refill 12/31/2024 Reason Onset Date Comments Med Refill 01/26/2025 Reason Comments Med Change Request Reason Onset Date Comments Med Refill 02/06/2025 Reason Comments Appointment Left we received referral for botox injections Reason Comments Manometry Specialty Diagnoses / Procedures Referred By Contac t Referred To Contact [facility] Diagnoses Pelvic floor dysfunction Procedures ADULT [place] ANORECTAL MANOMETRY ANORECTAL MANOMETRY Violette Maurer APRN.SENIOR ELECTRICAL DESIGNER [address] [facility] [place] [address] Phone: tel: fax: [facility] [address] [place] [address] Referral ID Status Reason Start Date Expiration Date V isits Requested Visits Authorized [id number] Closed Auto-Generate d Referral 02/21/2025 08/21/2025 1 1 Reason Comments New Patient Pelvic floor dysfunc tion Specialty Diagnoses / Procedures Referred By Contac t Referred To Contact [facility] Diagnoses Pelvic floor dysfunction Procedures ADULT [place] ANORECTAL MANOMETRY ANORECTAL MANOMETRY Violette Maurer, DAVID.SENIOR ELECTRICAL DESIGNER [address] [place] [facility] [place] [address] Phone: tel: fax: [facility] [address] [place] [address] Referral ID Status Reason Start Date Expiration Date V isits Requested Visits Authorized [id number] Closed Auto-Generate d Referral 02/21/2025 08/21/2025 1 1 Reason Comments Patient Update Reason Onset Date Comments Med Refill 03/22/2025 Reason Comments Established Patient Reason Comments Pelvic Floor Conference Care Teams (unrecognized sec tion and content) Team Status: Active Member Role Status Dates Cisco Bonilla DO Primary Care Provider Active Team Status: Inactive Member Role Status Dates Cisco CarcamolindenDO kiley Primary Care Provider Active Start: January 29, 2024 End: January 30, 2024 Jennyfer Winkler MD Emergency Provider Active Star t: January 29, 2024 End: January 30, 2024 Team Status: Inactive Member Role Status Dates Cisco Bonilla DO Primary Care Provider Active Start: March 03, 2024 End: March 03, 2024 James De PA-C Emergency Provider Active Start: March 03, 2024 End: March 03, 2024 Senior Cobol Developer Relationship Specialty Start Date End Date Cisco Bonilla DO [address] [place] [address] PCP - General Family Medicine 12/19/19 Senior Cobol Developer Relationship Specialty Start Date End Date Cisco Bonilla DO [address] [place] [address] PCP - General Family Medicine 12/19/19 Senior Cobol Developer Relationship Specialty Start Date End Date Cisco Bonilla DO [address] [place] [address] PCP - General Family Medicine 12/19/19 Senior Cobol Developer Relationship Specialty Start Date End Date Cisco Bonilla DO [address] [place] [address] PCP - General Family Medicine 12/19/19 Senior Cobol Developer Relationship Specialty Start Date End Date Cisco Bonilla DO [address] [place] [address] PCP - General Family Medicine 12/19/19 Senior Cobol Developer Relationship Specialty Start Date End Date Cisco Bonilla DO [address] [place] [address] PCP - General Family Medicine 12/19/19 Senior Cobol Developer Relationship Specialty Start Date End Date Cisco Bonilla DO [address] [place] [address] PCP - General Family Medicine 12/19/19 Senior Cobol Developer Relationship Specialty Start Date End Date Cisco Bonilla DO [address] [place] [address] PCP - General Family Medicine 12/19/19 Senior Cobol Developer Relationship Specialty Start Date End Date Cisco Bonilla DO [address] [place] [address] PCP - General Family Medicine 12/19/19 Senior Cobol Developer Relationship Specialty Start Date End Date Cisco Bonilla DO [address] [place] [address] PCP - General Family Medicine 12/19/19 Senior Cobol Developer Relationship Specialty Start Date End Date Cisco Bonilla DO [address] [place] [address] PCP - General Family Medicine 12/19/19 Senior Cobol Developer Relationship Specialty Start Date End Date Cisco Bonilla DO [address] [place] [address] PCP - General Family Medicine 12/19/19 Senior Cobol Developer Relationship Specialty Start Date End Date Cisco Bonilla DO [address], [place] [address] PCP - General Family Medicine 12/19/19 Senior Cobol Developer Relationship Specialty Start Date End Date Cisco Bonilla DO [address] [place] [address] PCP - General Family Medicine 12/19/19 Senior Cobol Developer Relationship Specialty Start Date End Date Cisco Bonilla DO [address] [place] [address] PCP - General Family Medicine 12/19/19 Senior Cobol Developer Relationship Specialty Start Date End Date Cisco Bonilla DO [address], [place] [address] PCP - General Family Medicine 12/19/19 Senior Cobol Developer Relationship Specialty Start Date End Date Cisco Bonilla DO [address] [place] [address] PCP - General Family Medicine 12/19/19 Senior Cobol Developer Relationship Specialty Start Date End Date Cisco Bonilla DO [address] [place] [address] PCP - General Family Medicine 12/19/19 Senior Cobol Developer Relationship Specialty Start Date End Date Tyson Tolliver MD PCP - General Family Medicine 11/11/15 Vivian Brady MD [address] [facility] [address] [address] Gastroenterology 01/16/25 Senior Cobol Developer Relationship Specialty Start Date End Date Cisco Bonilla DO [address] [facility], [place] [address] PCP - General Family Medicine 12/19/19 Senior Cobol Developer Relationship Specialty Start Date End Date Tyson Tolliver MD PCP - General Family Medicine 11/11/15 Vivian Brady MD [address] [address] Gastroenterology 01/16/25 Team Status: Inactive Member Role Status Dates Cisco Bonilla DO Primary Care Provider Active Start: February 18, 2025 End: February 18, 2025 Ehsan Avina DO Attending Provider Active S tart: February 18, 2025 End: February 18, 2025 Senior Cobol Developer Relationship Specialty Start Date End Date Tyson Tolliver MD PCP - General Family Medicine 11/11/15 Vivian Brady MD [address] [address] Gastroenterology 01/16/25 Senior Cobol Developer Relationship Specialty Start Date End Date Tyson Tolliver MD PCP - General Family Medicine 11/11/15 Vivian Brady MD [address] [address] Gastroenterology 01/16/25 Senior Cobol Developer Relationship Specialty Start Date End Date Tyson Tolliver MD PCP - General Family Medicine 11/11/15 Vivian Brady MD [address] [address] Gastroenterology 01/16/25 Senior Cobol Developer Relationship Specialty Start Date End Date Tyson Tolliver MD PCP - General Family Medicine 11/11/15 Vivian Brady MD [address] [address] Gastroenterology 01/16/25 Team Status: Active Member Role Status Dates Cisco Bonilla DO Primary Care Provider Active Start: March 13, 2025 Ehsan Avina , DO Attending Provider Active S tart: March 13, 2025 Team Status: Inactive Member Role Status Dates Cisco Bonilla , DO Primary Care Provider Active Start: March 13, 2025 End: March 13, 2025 Ehsan Avina , DO Attending Provider Active S tart: March 13, 2025 End: March 13, 2025 Team Status: Inactive Member Role Status Dates Cisco Bonilla DO Primary Care Provider Active Start: March 18, 2025 End: March 18, 2025 Ehsan Avina , DO Attending Provider Active S tart: March 18, 2025 End: March 18, 2025 Team Status: Active Member Role Status Dates Cisco Bonilla DO Primary Care Provider Active Start: March 12, 2025 Ehsan Avina , DO Attending Provider Active S tart: March 12, 2025 Ehsan Avina , DO Other Provider Active Start : March 12, 2025 Team Status: Inactive Member Role Status Dates Cisco Bonilla DO Primary Care Provider Active Start: March 19, 2025 End: March 19, 2025 Ehsan Avina DO Attending Provider Active S tart: March 19, 2025 End: March 19, 2025 Senior Cobol Developer Relationship Specialty Start Date End Date Cisco Bonilla DO [address] [facility] [place] [address] PCP - General Family Medicine 12/19/19 Senior Cobol Developer Relationship Specialty Start Date End Date Tyson Tolliver MD PCP - General Family Medicine 11/11/15 Vivian Brady MD [address] [address] Gastroenterology 01/16/25 Senior Cobol Developer Relationship Specialty Start Date End Date Tyson Tolliver MD PCP - General Family Medicine 11/11/15 Vivian Brady MD [address] [address] Gastroenterology 01/16/25 Senior Cobol Developer Relationship Specialty Start Date End Date Tyson Tolliver MD PCP - General Family Medicine 11/11/15 Vivian Brady MD [address] [address] Gastroenterology 01/16/25 Goals (unrecognized section and content) Goals may be documented in a n alternate section Source Comments (unrecognize d section and content) In the event this informatio n is protected by the Federal Confidentiality of Alcohol and Drug Abuse Patient Records regulations: The Federal rules restrict any use of the information to criminally investigate or prosecute any alcohol or drug abuse patient.[facility] the event this information is protected by the Federal Confidentiality of Alcohol and Drug Abuse Patient Records regulations: The Federal rules restrict any use of the information to criminally investigate or prosecute any alcohol or drug abuse patient.[facility] the event this information is protected by the Federal Confidentiality of Alcohol and Drug Abuse Patient Records regulations: The Federal rules restrict any use of the information to criminally investigate or prosecute any alcohol or drug abuse patient.[facility] the event this information is protected by the Federal Confidentiality of Alcohol and Drug Abuse Patient Records regulations: The Federal rules restrict any use of the information to criminally investigate or prosecute any alcohol or drug abuse patient.[facility] Hospital[facility] the event this information is protected by the Federal Confidentiality of Alcohol and Drug Abuse Patient Records regulations: The Federal rules restrict any use of the information to criminally investigate or prosecute any alcohol or drug abuse patient.[facility] Hospital[facility] the event this information is protected by the Federal Confidentiality of Alcohol and Drug Abuse Patient Records regulations: The Federal rules restrict any use of the information to criminally investigate or prosecute any alcohol or drug abuse patient.[facility] Hospital[facility] the event this information is protected by the Federal Confidentiality of Alcohol and Drug Abuse Patient Records regulations: The Federal rules restrict any use of the information to criminally investigate or prosecute any alcohol or drug abuse patient.[facility] Hospital[facility] the event this information is protected by the Federal Confidentiality of Alcohol and Drug Abuse Patient Records regulations: The Federal rules restrict any use of the information to criminally investigate or prosecute any alcohol or drug abuse patient.[facility] Hospital[facility] the event this information is protected by the Federal Confidentiality of Alcohol and Drug Abuse Patient Records regulations: The Federal rules restrict any use of the information to criminally investigate or prosecute any alcohol or drug abuse patient.[facility] FOR RECORDS PERTAINING TO PATIENTS WHO [...] BE BASED ON THE PRIMARY CLINICAL RECORDS. [facility]. provides no warranty or guarantee of the accuracy or completeness of information in this document.
== END 2025-04-08 09:14 | disposition home or self-care (01) ==
LOC: RAD 09:13
PROVIDERS: PCP Family Medicine; Visit Provider Orthopaedic Surgery Orthopaedic Trauma
DX: S92.351A Displaced fracture of fifth metatarsal bone, right foot, initial encounter for closed fracture (principal); Z98.890 Other specified postprocedural states
CPT/HCPCS: 73630

== ENCOUNTER 2025-05-07 01:44 | Emergency (ER) | payer OTHER, SELFPAY ==
[2025-05-07] VITALS (29 sets, daily range): BP systolic 143–198; BP diastolic 90–126; PULSE 85; TEMP 37.1; O2SAT 96–100; BMI 258.5
--- OUTSIDE RECORDS SUMMARY | 2025-05-07 01:51 | XMS_ITS | Encounter Summary ---
Demographics Address [address] [facility] [place] [address] Home Phone Mobile Phone Email Address Email Address Preferred Language ENG Marital Status Single Jainism Affiliation Unknown Race White Ethnic Group or Author Organization [facility] Address [address] [place] [address] Care Team Providers Care Leaflet Distributor Name Role Phone Tyson Fonseca MD Primary Care Provider Vivian Brady MD Unavailable [phone] Source Comments In the event this information is protected by the Federal Confidentiality of Alcohol and Drug AbusePatient Records regulations: The Federal rules restrict any use of the information to criminally investigate or prosecute any alcohol or drug abuse patient.[facility] Encounter Details Date Type Department Care Team (Late st Contact Info) Description 02/15/2025 Patient Msg General Surgery [address] [place] [id number] Provider, Ccwaqar Follow up from phone call [...] on filedocumented in this encounter Care Teams Leaflet Distributor Relationship Specialty Start Date End Date Tyson Fonseca MD PCP - General Family Medicine 11/11/15 Vivian Brady MD [address] [place] [address] Gastroenterology 01/16/25 documented as of this encounter
--- OUTSIDE RECORDS SUMMARY | 2025-05-07 01:51 | XMS_ITS | Clinical Summary ---
Author Organization [facility] Address [address] [place] [address], [address] [place] [address] Care Team Providers Care Bronze Plater Name Role Phone Tyson Fonseca MD Primary [...] of Treatment Not on file Care Teams Bronze Plater Relationship Specialty Start Date End Date Tyson Fonseca MD PCP - General 07/09/16
--- OUTSIDE RECORDS SUMMARY | 2025-05-07 01:51 | XMS_ITS | Encounter Summary ---
Demographics Address [address] [facility] [place] [address] Home Phone Mobile Phone Email Address Email Address carlos .Zoe Majeste Preferred Language ENG Marital Status Single Buddhism Affiliation Unknown Race White Ethnic Group or Author Organization [facility] Address [address] [place] [address] Care Team Providers Care Survey Supervisor Name Role Phone Tyson Fonseca MD Primary Care Provider [phone] Vivian Brady MD Unavailable [phone] Source Comments In the event this information is protected by the Federal Confidentiality of Alcohol and Drug AbusePatient Records regulations: The Federal rules restrict any use of the information to criminally investigate or prosecute any alcohol or drug abuse patient.[facility] Encounter Details Date Type Department Care Team (Late st Contact Info) Description 02/20/2025 Patient Msg Colorectal Surgery [address] [address] Violette Maurer APRN.[facility] [address] [place] [address]. [place] [phone] anorectal manometry ordered. Social History Tobacco Use [...] on filedocumented in this encounter Care Teams Survey Supervisor Relationship Specialty Start Date End Date Tyson Fonseca MD PCP - General Family Medicine 11/11/15 Vivian Brady MD [address] [place] [address] Gastroenterology 01/16/25 documented as of this encounter
--- OUTSIDE RECORDS SUMMARY | 2025-05-07 01:51 | XMS_ITS | Clinical Summary ---
Author Organization [facility] Address [address] [place] [address] Care Team Providers Care Dental Patient Coordinator Name Role Phone Tyson Fonseca MD Primary Care Provider [phone] Vivian Brady MD Unavailable [phone] Allergies No known active allergies Medications ALPRAZolam (XANAX) 2 mg tablet Take 1 mg by mouth. 12/11/19 25 Active amLODIPine (NORVASC) 5 mg tablet 1 tablet Oral Once a day for 30 days 02/02/20 24 Active anastrozole (ARIMIDEX) 1 mg tablet Take by mouth. 03/03/20 24 Active cloNIDine HCl (CATAPRES) 0.1 mg tablet Take 0.1 mg by mouth. 01/10/20 25 Active HYDROcodone-acet aminophen (NORCO) 5-325 mg per tablet TAKE 1 TABLET BY MOUTH TWICE DAILY FOR PAIN FOR 15 DAYS Active Pramoxine-Hydroc ortisone (ANALPRAM-HC) 1-1 % rectal cream 1 application by RECTAL route. 12/21/19 25 Active linaCLOtide (LINZESS) 72 mcg capsule Take 72 mcg by mouth every 24 hours. 12/09/19 24 Active metoprolol tartrate, short acting, (LOPRESSOR) 25 mg tablet take 1 tablet by mouth twice a day Oral for 30 Days Active petrolatum, white 100 % gel 02/20/20 25 Active plecanatide (TRULANCE) 3 mg tablet Take 3 mg by mouth. 01/25/20 25 Active polyethylene glycol 3350 17 gram/dose powder Take 17 g by mouth. 01/29/20 25 Active testosterone cypionate (DEPO-TESTOSTERO NE) 200 mg/mL injection 1 mL. 03/03/20 24 Active BENEFIBER SUGAR FREE, DEXTRIN, 3 gram/4 gram powd Take 3 g by mouth. 02/07/20 25 Active baclofen suppository 10 mg (CPD)Indications :Pelvic floor dysfunction,Rect al spasm,Constipati on, unspecified constipation type 1 suppository by RECTAL route two times a day as needed (rectal pain). Unwrap and insert as directed. 60 suppository 03/26/20 25 025 Encounters Date Type Department Care Team Description 04/03/2025 Patient Msg Colorectal Surgery [address] [place] [phone] Lydia Drake PA-C Follow up from virtual visit 04/03/2025 Patient Update Colorectal Surgery [address] [address] Lydia Drake PA-C Pelvic Floor Conference 04/02/2025 11:30 AM EDT [facility] Colorectal Surgery [address] [place] [phone] Lydia Drake PA-C Constipation, unspecified constipation type (Primary Dx); Rectal spasm; Pelvic floor dysfunction; Anxiety; Distressed about housing issues; Orthostatic dizziness 03/26/2025 Refill Colorectal Surgery [address] [address] Lydia Drake PA-C Refill Request 03/21/2025 Travel 03/08/2025 Abstract Colorectal Surgery [address] [address] Suma Navarrete DO 03/07/2025 Telephone Colorectal Surgery [address] [address] Lydia Drake PA-C Patient Update 03/01/2025 Patient Msg Colorectal Surgery [address] [address] Lydia Drake PA-C Follow up from visit 02/28/2025 1:00 PM EDT Office Visit Colorectal Surgery [address] [place] [phone] Lydia Drake PA-C Pelvic floor dysfunction (Primary Dx); Rectal spasm; Constipation, unspecified constipation type 02/28/2025 12:30 PM EDT Nurse Visit Colorectal Surgery [address] [place] [phone] Sahil Bergeron RN Pelvic floor dysfunction 02/20/2025 Patient Ms Colorectal Surgery [address] [place] [address] Violette Maurer APRN.LINEN ATTENDANT anorectal manometry ordered. 02/20/2025 Orders Only Colorectal Surgery [address] [place] [phone] Violette Maurer APRN.LIDA Pelvic floor dysfunction (Primary Dx) 02/15/2025 Patient Ms General Surgery [address] [place] [address] Provider, [facility] Follow up from phone call 02/15/2025 Travel 02/11/2025 Telephone Colorectal Surgery [address] [place] [phone] Ashley Hayward MD Appointment (Left vm we received referral for botox injections) from Last 3 Months Social History Tobacco Use Types Packs/Day Years Used Date Smoking Tobacco: Never Assessed Area Deprivation Index Answer Date Juan Carlos rded National Score (1-100), lower number is lower ri sk 93 02/28/2025 State Score (1-10), lower number is lower risk 9 02/28/2025 Data from: https://www.neighborhoodatlas.medicine.[facility].edu/. Last address used for calculation [address] 02/28/2025 Sex and Gender [...] discussed with the Patient or Patient's Authorized Pantomimist. As applicable, any other physician, advance practice provider, medical student, or other health professional student that will be observing or involved in the sensitive examination for educational or training purposes was discussed with the Patient or Authorized Pantomimist. The Patient or Authorized Pantomimist has agreed to proceed with the sensitive examination. Senior Animator offered:Patient accepts, visit chaperoned by Antonieta PAYNE,RN [...] Colon & Rectal Surgery us Violette Maurer APRN.LINEN ATTENDANT [facility] Final Result * PT ED [...] Personal/Family Self 1970 [address] [place] [address] [facility] Care Teams Dental Patient Coordinator Relationship Specialty Start Date End Date Tyson Fonseca MD PCP - General Family Medicine 11/11/15 Vivian Brady MD [address] [place] [address] Gastroenterology 01/16/25
--- OUTSIDE RECORDS SUMMARY | 2025-05-07 01:51 | XMS_ITS | Clinical Summary ---
Demographics Address [address] [place] [address] Home Phone Mobile Phone Email Address Preferred Language en Marital Status Single Mandaen Affiliation Unknown Race White Ethnic Group Not or Lati no Author Organization [facility] Address [address] [place] [address] Care Team Providers Care Special Education Associate Name Role Phone Unavailable Primary Care Provider [...]
--- OUTSIDE RECORDS SUMMARY | 2025-05-07 01:52 | XMS_ITS | CCD ---
Author Organization [facility] Care Team Providers Care Utility Worker [place] Name Role Phone OSINOWO, OSIYEMI Unavailable Unavailable OSINOWO, OSIYEMI Unavailable Unavailable NADERER, TYSON Unavailable Unavailable NADERER, TYSON Unavailable Unavailable Mary King Unavailable Tawnya Andre Unavailable CHAD, DR CISCO Thomason Primary Care Unavailable MARKER, DR JUARES Admitting Unavailable MARKER, DR JUARES Attending Unavailable MARKER, DR JUARES Consulting Unavailable ALANA MORROW Consulting Unavailable DO Cisco Bonilla Primary Care Provider MD Jennyfer Winkler Emergency Provider CISCO BONILLA Primary Care Physician JAME De Emergency Provider [phone] JENNYFER AUGUSTIN Admitting Unavailable JENNYFER AUGUSTIN Attending Unavailable CISCO BONILLA Primary Care Unavailable JENNYFER AUGUSTIN Attending Unavailable JENNYFER AUGUSTIN Referring Unavailable CISCO BONILLA Primary Care Unavailable CHAD, CISCO Thomason Primary Care Unavailable JEY NORRIS Attending Unavailable Carlos Albertolong Cisco MCLAUGHLIN Primary Care Provider Cisco Bonilla DO Primary Care Provider [phone] CISCO BONILLA Attending Unavailable CISCO BONILLA Referring Unavailable CARLOS ALBERTOLONG, CISCO Thomason Primary Care Unavailable CARLOS ALBERTOLONG, CISCO Thomason Attending Unavailable CARLOS ALBERTOLONG, CISCO Thomason Referring Unavailable FURLONG, CISCO Thomason Primary Care Unavailable CARLOS ALBERTOLOCISCO CAO Attending Unavailable CARLOS ALBERTOLONGCISCO Referring Unavailable FURLONG, CISCO Thomason Primary Care Unavailable FURLONG, CISCO Thomason Referring Unavailable FURLONG, CISCO G Primary Care Unavailable FURLONG, CISCO G Referring Unavailable FURLONG, CISCO G Primary Care Unavailable Tyson Tolliver MD Primary Care Provider Vivian Brady MD Unavailable Carlos Albertoclyde Cisco Primary Care Provider Shiv Avina DOin A Attending Provider [phone] Ehsan Avina DO A Other Provider Kailyn, Ehsan A Admitting Unavailable Kailyn, Ehsan A Attending Unavailable Furlong, Cisco Primary Care Unavailable Kailyn, Ehsan A Admitting Unavailable Kailyn, Ehsan A Attending Unavailable Furlong, Cisco Primary Care Unavailable Kailyn, Ehsan A Admitting Unavailable Kailyn, Ehsan A Attending Unavailable Furlong, Cisco Primary Care Unavailable FELIPE ARIAS Referring [...] Medication Allergies] Propensity to adverse reactions (disorder) [facility] Medications Current Medications Medication Drug Class(es) Dates Sig (Normalized) Sig (Original) acetaminophen 325 mg / HYDROcodone bitartrate 5 mg oral tablet (20 sources) Opioid Agonist Start: 03-13-2025 take 1 tablet by mouth twice daily as needed for pain Start: 03-04-2025 End: 03-04-2025 take 1 tablet by mouth twice daily as needed for pain Hydrocodone-Acetaminophen 5-325 mg table t Discontinued 1 TAB PO Twice daily as needed for pain 30 March 04, 2025 March 04, 2025 12:43pm Diagnosis: S92.351A Dispense: 30 (THIRTY) Start: 03-04-2025 End: 03-13-2025 take 1 tablet by mouth twice daily as needed for pain Hydrocodone-Acetaminophen 5-325 mg table t Discontinued 1 TAB PO Twice daily as needed for pain March 04, 2025 March 13, 2025 4:14pm Diagnosis: S92.351A Dispense: 20 (Twenty) Start: 02-18-2025 End: 03-13-2025 take 1 tablet by mouth twice daily as needed for pain Hydrocodone-Acetaminophen 5-325 mg table t Discontinued 1 TAB PO Twice daily as needed for pain February 18, 2025 March 04, 2025 12:42pm Diagnosis: S92.351A Dispense: 30 (THIRTY) ALPRAZolam 0.5 mg oral tablet (20 sources) Benzodiazepine Start: 03-18-2025 take 1 tablet by tere th once daily as needed for anxiety Start: 12-10-2024 ALPRAZolam (XA NAX) 2 mg [...] 1 tablet by mouth once daily amLODIPine Besyl ate Active anastrozole 1 mg oral tablet (20 sources) Aromatase Inhibitor Start: 03-03-2024 take 1 mg by mouth once daily anastrozole mg, Oral, Daily, Refills(s) 0 Start Date: 01/09/25 Status: Ordered Repeat number: 1 Start: 03-03-2024 End: 02-18-2025 take 1 tablet by mouth every week Anastrozole 1 mg tablet Discontinued 1 MG PO .weekly March 03, 2024 12:00am February 18, 2025 1:42pm baclofen 10 mg oral tablet (3 sources) gamma-Aminobutyric Acid-ergic Agonist Start: 03-18-2025 take 1 tablet by mouth every twelve hours baclofen suppository 10 mg (CPD) (6 sources) [...] as directed. 60 suppository 02/28/2025 03/30/2025 Active bisacodyl 10 mg rectal suppository (1 source) Stimulant Laxative Start: 04-19-2025 take 10 mg rectal route once daily as needed for constipation Dulcolax 10 mg Supp 10 mg = 1 supp, Rectal, Daily, PRN for constipation, # 10 supp, Refills(s) 0, Pharmacy: [id number], 173, cm, 01/24/25 10:35:00 EDT, Height/Length Dosing, 86.3, kg, 01/24/25 10:35:00 EDT, Weight Dosing Start Date: 04/19/25 Status: Ordered Quantity: 10.0 Unit: supp Repeat number: 1 cloNIDine hydrochloride 0.1 mg oral tablet (20 sources) Central alpha-2 Adrenergic Agonist Start: 10-15-2024 End: 03-22-2025 cloNIDine 0.1 mg tab Refills(s) 0 Start Date: 01/09/25 Status: Ordered [...] c apsule 09/06/2024 09/11/2024 Discontinued (Reorder) Enclomifene (3 sources) Start: 01-09-2025 Enclomifene Enclomifene Start Date: [...] 12/10/2024 Discontinued (Therapy completed) Hydrophilic Cream ointment (3 sources) Start: 03-18-2025 Start: 03-18-2025 Hydrophilic Cr eam ointment Active [...] 12/09/2023 Active ibuprofen 200 mg oral tablet (3 sources) Nonsteroidal Anti-inflammatory Drug Start: 03-18-2025 lidocaine 0.05 mg/mg medicated patch (1 source) [...] oral tablet (20 sources) beta-Adrenergic Catherine Start: 02-02-2024 End: 09-11-2024 take 1 tablet by mouth once daily Start: 02-15-2023 End: 03-14-2024 take 1 tablet by mouth twice daily metoprolol tartrate (LOPRESSOR) 25 mg tablet take 1 tablet by mouth twice a day 60 tablet 5 02/15/2023 03/14/2024 Discontinued (Reorder) Metoprolol Tartr ate Active nitrofurantoin, macrocrystals 25 mg / nitrofurantoin, monohydrate 75 mg oral capsule (13 sources) Nitrofuran Antibacterial Start: 01-30-2024 End: 03-03-2024 nitrofurantoin macrocrystals-monohydrate 100 mg Cap Refills(s) 0 Start Date: 02/02/24 Status: Ordered Repeat number: 1 petrolatum 1 mg/mg topical ointment (7 sources) Start: 02-19-2025 petrolatum, white 100 % gel 02/19/2025 Active plecanatide 3 mg oral tablet (15 sources) Start: 01-24-2025 take 1 tablet by mouth once daily Trulance 3 mg oral tablet 3 mg = 1 tab(s), Oral, Daily, # 30 tab(s), Refills(s) 4, Pharmacy: [id number], 173, cm, 01/24/25 10:35:00 EDT, Height/Length Dosing, 86.3, kg, 01/24/25 10:35:00 EDT, Weight Dosing Start Date: 01/24/25 Status: Ordered Quantity: 30.0 Unit: tab(s) Repeat number: 5 Indications: Other specified disorders of muscle; Outlet dysfunction constipation; Constipation, unspecified; Psychological and behavioral factors associated with disorders or diseases classified elsewhere; Other psychoactive substance dependence, uncomplicated; Abdominal distension (gaseous); polyethylene glycol 3350 73803 mg powder for oral solution (20 sources) Osmotic Laxative Start: 09-11-2024 End: 03-22-2025 polyethylene glycol 3350 17 gram/dose powder Take 17 g by mouth. 01/28/2025 Active Start: 02-20-2024 End: 03-15-2024 polyethylene glycol (GLYCOLA X) 17 gram/dose powder Take 17 g by mouth in the morning. 510 g 02/20/2024 03/15/2024 Discontinued (Therapy completed) Senna Leaves (4 sources) Start: 04-19-2025 Senna 8.6 mg o ral tablet 17.2 mg, 2 tab(s), Oral, Once a day (at bedtime) for constipation, 100 tab(s), Refill(s) 0, [id number], 173, cm, 01/24/25 10:35:00 EDT, Height/Length Dosing, 86.3, kg, 01/24/25 10:35:00 EDT, Weight Dosing Start Date: 04/19/25 Status: Ordered Quantity: 100.0 Unit: tab(s) Repeat number: 1 Start: 01-09-2025 Senna 8.6 mg o ral tablet 17.2 mg, 2 tab(s), Oral, Once a day (at bedtime) for constipation, 100 tab(s), Refill(s) 3, [facility], 173, cm, 01/09/25 12:52:00 EDT, Height/Length Dosing, 90.9, kg, 01/09/25 12:52:00 EDT, Weight Dosing Start Date: 01/09/25 Status: Ordered Quantity: 100.0 Unit: tab(s) Repeat number: 4 Sertraline (2 sources) Serotonin Reuptake Inhibitor Sertraline HCl Activ e Testosterone (20 sources) Androgen Start: 01-09-2025 testosterone Refills(s) 0 Start Date: 01/09/25 Status: Ordered Repeat number: 1 Start: 03-03-2024 inject 180 mg by int ramuscular injection two times weekly Start: 03-03-2024 testosterone c ypionate (DEPO-TESTOSTERONE) 200 mg/mL injection 1 mL. 03/03/2024 Active Start: 03-03-2024 inject 200 mg by int [...] (Original) amitriptyline hydrochloride 10 mg oral tablet (14 sources) Tricyclic Antidepressant Start: 10-15-2024 End: 12-10-2024 [...] 09/11/2024 Discontinued (Ineffective) Enclomiphene 25 mg capsule (6 sources) Start: 03-03-2024 End: 02-18-2025 take 1 [...] completed) oxyCODONE hydrochloride 5 mg oral tablet (2 sources) Opioid Agonist Start: 03-19-2025 End: 03-19-2025 take [...] 2025 March 19, 2025 11:33am peg 3350-sod sulf,mfbs-wve-xon 178.7-7.3-0.5 gram recon soln (1 source) Start: 02-13-2024 End: 02-14-2024 peg 3350-sod sulf,zoua-ape-xhy 178.7-7.3-0.5 gram recon soln Indications: Change in [...] Not-Taking tamsulosin hydrochloride 0.4 mg oral capsule (9 sources) alpha-Adrenergi c Catherine Start: 02-02-2024 End: [...] 21 03-09-2021 Chronic Anal and rectal conditions (8 sources) Anal fissure; Translations: [Anal fissure, unspecified] Onset: 02-29-20 25 03-15-2024 Episodic Anxiety disorders (20 sources) Anxiety; Translations: [Anxiety disorder, unspecified] Onset: 12-29-19 15 09-11-2024 Chronic Conditions associated with dizziness or vertigo (1 source) Postural dizziness; Translations: [Dizziness and giddiness] 04-02-2025 Episodic Disorders of lipid metabolism (5 sources) Hypercholesterolemia 02-02-2024 Chronic Diverticulosis and diverticulitis [...] 21 02-02-2024 Chronic Fluid and electrolyte disorders (8 sources) Hyperkalemia; Translations: [Dehydration] Onset: 08-30-19 17 03-03-2024 Episodic Fracture of lower limb (19 sources) Displaced fracture of fifth metatarsal bone, right foot, initial encounter for closed fracture; Translations: [Fracture of fifth metatarsal bone of right foot] Onset: 03-13-20 25 02-18-2025 Episodic Genitourinary symptoms and ill-defined conditions (14 sources) Acute retention of urine ; Translations: [Other retention of urine] Onset: 02-02-20 24 01-30-2024 Episodic Hepatitis (20 sources) Chronic hepatitis C; Translations: [Chronic viral hepatitis C] Onset: 03-09-20 21 03-09-2021 Chronic Hepatitis (3 sources) Viral hepatitis C; Translations: [Unspecified viral hepatitis C without hepatic coma] 12-26-2024 Episodic Hyperplasia of prostate (5 sources) Benign prostatic hypertrophy without outflow obstruction; Translations: [Benign prostatic hyperplasia without lower urinary tract symptoms] Onset: 02-02-20 Chronic Miscellaneous mental health disorders (8 sources) Psychosomatic factor in physical condition; Translations: [Psychological and behavioral factors associated with disorders or diseases classified elsewhere] Onset: 01-10-20 Chronic Mood disorders (20 sources) Moderate recurrent major depression; Translations: [Major depressive disorder, recurrent, moderate] Onset: 03-09-20 Resolved : 02-18-20 23 03-09-2021 Chronic Other connective tissue disease (3 sources) Disorder of muscle; Translations: [Other specified disorders of muscle] Onset: 01-10-20 Episodic Other connective tissue disease (9 sources) Pelvic floor dysfunction; Translations: [Other specified [...] syndrome] Onset: 09-11-19 Chronic Other gastrointestinal disorders (7 sources) Acute constipation; Translations: [Constipation, unspecified] 03-03-2024 Episodic Other gastrointestinal disorders (4 sources) Increased frequency of defecation 02-07-2024 Episodic Other gastrointestinal disorders (3 sources) Constipation, unspecified; Translations: [Constipation, unspecified] Onset: 01-09-20 Episodic Other gastrointestinal disorders (3 sources) Constipation by outlet obstruction; Translations: [Outlet dysfunction constipation] Onset: 01-10-20 Episodic Other gastrointestinal disorders (3 sources) Swollen abdomen; Translations: [Abdominal distension (gaseous)] Onset: 01-10-20 Episodic Other gastrointestinal disorders (3 sources) Abdominal bloating 01-09-2025 Episodic Other gastrointestinal disorders (12 sources) Constipation; Translations: [Outlet dysfunction constipation] 01-09-2025 Episodic Other injuries and conditions due to external causes (5 sources) Injury of head 02-02-2024 Episodic Other [...] Translations: [Restlessness and agitation] Onset: 03-07-2003-07-2021 Chronic Residual codes; unclassified (1 source) Postprocedural state finding; Translations: [Other specified postprocedural states] 04-08-2025 Episodic Schizophrenia and other psychotic disorders (20 sources) Paranoid disorder; Translations: [Delusional disorders] Onset: 12-09-1908-03-2023 Chronic Comment on above: Problem List clean-u p per request of Phys. EHR Cmte Screening and history of mental health and substance abuse codes (3 sources) Ex-smoker; Translations: [Personal history of nicotine dependence] Onset: 12-11-1912-10-2024 Episodic Substance-related disorders (20 sources) Nicotine dependence, cigarettes, uncomplicated; Translations: [Polysubstance abuse ] Onset: 03-29-2008-03-2023 Chronic Comment on above: Problem List clean-u p per request of Phys. EHR Cmte Unclassified (2 sources) Unknown / UNK(Unknown) Onset: 08-30-19 Unclassified (4 sources) Patient encounter status 02-07-2024 Unclassified (1 source) change in bowel habits Onset: 02-17-20 Unclassified (18 sources) Hypogonadism; Translations: [Hypogonadism] Onset: 10-12-19 22 08-04-2022 Unclassified (1 source) Annual Exam Onset: 12-11-19 [...] (20 sources) Disease caused by 2019-nCoV; Translations: [COVID-] Onset: 09-06-2021 08-04-2022 Episodic Viral infection (1 source) COVID-19 Onset: 09-01-2021 Resolved: 09-01-2021 Results Test Name Value Interpretation Reference Range Facility XR foot RT 2Von 03-20-2025 XR foot RT 2V [facility] [place] [address] XRay Report Signed Patient: Chai Arnold MR#: [id number] 2 : 1970 Acct:[id number] Age/Sex: 54 / M ADM Date: 03/19/25 Loc: [place] Room: Type: [facility] Attending Dr: Ehsan Avina DO Copies to: [...] Lisa M.D. 03/20/2025 8:49 AM Dictation Location: [place] [address] Transcribed By: [facility] 03/20/25 0849 Dictated By: Dante Lisa II, MD 03/20/25 0849 Signed By: 03/20/25 0849 Normal [facility] Amphetamine Screen Ql (U)Ord ered By: Nirmal Bruno on 03-19-2025 Amphetamines Ql (U) Negative Negative [facility] Barbiturates [Presence] in U rine by Screen methodOrdered By: Nirmal Bruno on 03-19-2025 Barbiturates Screen Ql (U) Negative Negative [facility] Benzodiazepines Screen Ql (U )Ordered By: Nirmal Bruno on 03-19-2025 Benzodiazepines Ql (U) Positive High Negative [facility] Benzoylecgonine [Presence] i n Urine by Screen methodOrdered By: Nirmal Bruno on 03-19-2025 Benzoylecgonine Screen Ql (U) Negative Negative [facility] Cannabinoids [Presence] in U rine by Screen methodOrdered By: Nirmal Bruno on 03-19-2025 Cannabinoids Screen Ql (U) Negative Negative [facility] Comment on above: These are unconfirme d results and should not be used for legal purposes. Drug Cut-Off Concentration: AMPH 1000 ng/mL MAXIMILIAN 200 ng/mL NORA 200 ng/mL COCM 300 ng/mL OP 300 ng/mL PCP 25 ng/mL THC 20 ng/mL Drug Screen,Urineon 03-19-20 25 Amphetamine Screen,Urine Negative Normal Negative [facility] Comment on above: Performed By: #### U RDS #### [address] Barbiturate Screen,Urine Negative Normal Negative [facility] Comment on above: Performed By: #### U RDS #### [place] [address] [place] Benzodiazepines Screen,Urine Positive Normal Negative [facility] Comment on above: Performed By: #### U RDS #### [address] Cannabinoid Screen,Urine Negative Normal Negative [facility] Comment on above: Result Comment: Thes e are unconfirmed results and should not be used for legal purposes. Drug Cut-Off Concentration: AMPH 1000 ng/mL MAXIMILIAN 200 ng/mL NORA 200 ng/mL COCM 300 ng/mL OP 300 ng/mL PCP 25 ng/mL THC 20 ng/mL PERFORMED BY: [place] [address] PATHOLOGIST CREATIVE ENGAGEMENT DIRECTOR BROWN OLIVIER M.D. Performed By: #### U RDS #### [place] [address] [place] Cocaine Screen,Urine Negative Normal Negative [facility] Comment on above: Performed By: #### U RDS #### [facility] [address] Opiate Screen,Urine Positive Normal Negative [facility] Comment on above: Performed By: #### U RDS #### [facility] [address] Phencyclidine Screen,Urine Negative Normal Negative [facility] Comment on above: Performed By: #### U RDS #### [address] Opiates [Presence] in Urine by Screen methodOrdered By: Nirmal Bruno on 03-19-2025 Opiates Screen Ql (U) Positive High Negative [facility] Phencyclidine Screen Ql (U)O rdered By: Nirmal Bruno on 03-19-2025 Phencyclidine Ql (U) Negative Negative [facility] Alanine aminotransferase [En zymatic activity/volume] in Serum or PlasmaOrdered By: Ehsan Avina on 03-18-2025 ALT [Catalytic activity/Vol] 15 U/L [facility] Comment on above: Performed By: #### C MP wRFX A1C, CBC #### [address] Albumin [Mass/volume] in Ser um or Plasma by Bromocresol green (BCG) dye binding methoOrdered By: Ehsan Avina on 03-18-2025 Albumin BCG dye [Mass/Vol] 4.2 g/dL 3.5-5.7 [facility] Alkaline phosphatase [Enzyma tic activity/volume] in Serum or PlasmaOrdered By: Ehsan Avina on 03-18-2025 ALP [Catalytic activity/Vol] 116 U/L High 34-104 [facility] Comment on above: Result Comment: PERF ORMED BY: [place] [address] PATHOLOGIST CREATIVE ENGAGEMENT DIRECTOR BROWN OILVIER M.D. Performed By: #### C MP wRFX A1C, CBC #### [address] Aspartate aminotransferase [ Enzymatic activity/volume] in Serum or PlasmaOrdered By: Ehsan Avina on 03-18-2025 AST [Catalytic activity/Vol] 20 U/L 13-39 [facility] Comment on above: Performed By: #### C MP wRFX A1C, CBC #### [facility] [address] Basophils [#/volume] in Bloo d by Automated countOrdered By: Ehsan Avina on 03-18-2025 Basophils (Bld) [#/Vol] 0.1 10*3/uL 0.0-0.2 [facility] Comment on above: Result Comment: PERF ORMED BY: [place] [address] PATHOLOGIST CREATIVE ENGAGEMENT DIRECTOR BROWN OLIVIER M.D. Performed By: #### C MP wRFX A1C, CBC #### [address] Basophils/100 leukocytes in Blood by Automated countOrdered By: Ehsan Avina on 03-18-2025 Basophils/100 WBC (Bld) 0.9 % . [facility] Comment on above: Performed By: #### C MP wRFX A1C, CBC #### [address] Bilirubin.total [Mass/volume ] in Serum or PlasmaOrdered By: Ehsan Avina on 03-18-2025 Bilirubin [Mass/Vol] 1.0 mg/dL 0.3-1.0 [facility] Comment on above: Performed By: #### C MP wRFX A1C, CBC #### [facility] [address] CMP with reflex to A1Con Albumin [Mass/Vol] 4.2 g/dL Normal 3.5-5.7 [facility] Comment on above: Performed By: #### C MP wRFX A1C, CBC #### [place] [address] [place] GFR/1.73 sq M.predicted MDRD (S/P/Bld) [Vol rate/Area] mL/min/{1.73_m2} Normal [facility] Comment on above: Performed By: #### C MP wRFX A1C, CBC #### [facility] [address] Calcium [Mass/volume] in Ser um or PlasmaOrdered By: Ehsan Avina on 03-18-2025 Calcium [Mass/Vol] 9.2 mg/dL 8.6-10.3 [facility] Comment on above: Performed By: #### C MP wRFX A1C, CBC #### [facility] [address] Carbon dioxide, total [Moles /volume] in Serum or PlasmaOrdered By: Ehsan Avina on 03-18-2025 CO2 [Moles/Vol] 29.7 mmol/L 21.0-31.0 [facility] Comment on above: Performed By: #### C MP wRFX A1C, CBC #### [facility] [address] Chloride [Moles/volume] in S dereje or PlasmaOrdered By: Ehsan Avina on 03-18-2025 Chloride [Moles/Vol] 102 mmol/L 98-107 [facility] Comment on above: Performed By: #### C MP wRFX A1C, CBC #### [address] Complete Blood Count Auto Di ffon 03-18-2025 Mean Corpuscular HGB Conc 34.4 g/dL Normal 32.5-35.6 [facility] Comment on above: Performed By: #### C MP wRFX A1C, CBC #### [facility] [address] [place] [address] [place] NRBC% 0.1 /100{WBC} Normal 0-0.5 [facility] Comment on above: Performed By: #### C MP wRFX A1C, CBC #### [facility] [address] White Blood Count 6.4 [CFU]/mL Normal 4.1-10.5 [facility] Comment on above: Performed By: #### C MP wRFX A1C, CBC #### [facility] [address] Creatinine [Mass/volume] in Serum or PlasmaOrdered By: Ehsan Avina on 03-18-2025 Creatinine [Mass/Vol] 1.03 mg/dL 0.70-1.30 [facility] Comment on above: Performed By: #### C MP wRFX A1C, CBC #### [facility] [address] ECG 12 lead ECGon 03-18-2025 ECG 12 lead ECG [facility] Main [place] [address] [place] [address] Electrocardiograph Report Signed Patient: Chai Arnold MR#: [id number] 2 : 1970 Acct:[id number] Age/Sex: 54 / M ADM Date: 03/18/25 Loc: Room: Type: [facility] Attending Dr: Ehsan Avina DO Ordering Provider: [...] previous ECGs available Confirmed by Eduardo Torrez ([id number]) on 03/18/2025 1:40:16 PM Referred By: Electronically Signed By: Eduardo Torrez Transcribed By: MUS Signed By Eduardo Torrez MD 03/18/25 1340 Normal [facility] Eosinophils [#/volume] in Bl ood by Automated countOrdered By: Ehsan Avina on 03-18-2025 Eosinophils (Bld) [#/Vol] 0.9 10*3/uL High 0.0-0.45 [facility] Comment on above: Performed By: #### C MP wRFX A1C, CBC #### [facility] [address] [place] [address] [place] Eosinophils/100 leukocytes i n Blood by Automated countOrdered By: Ehsan Avina on 03-18-2025 Eosinophils/100 WBC (Bld) 14.4 % . [facility] Comment on above: Performed By: #### C MP wRFX A1C, CBC #### [facility] [address] [place] [address] Erythrocyte distribution wid th [Ratio] by Automated countOrdered By: Ehsan Avina on 03-18-2025 Erythrocyte distribution width (RBC) [Ratio] 12.9 % 12.0-14.8 [facility] Comment on above: Performed By: #### C MP wRFX A1C, CBC #### [address] Erythrocytes [#/volume] in B lood by Automated countOrdered By: Ehsan Avina on 03-18-2025 RBC (Bld) [#/Vol] 4.85 10*6/uL 3.90-5.60 [facility] Comment on above: Performed By: #### C MP wRFX A1C, CBC #### [facility] [address] [place] [address] [place] Glucose [Mass/volume] in Ser um or PlasmaOrdered By: Ehsan Avina on 03-18-2025 Glucose [Mass/Vol] 88 mg/dL 70-100 [facility] Comment on above: Performed By: #### C MP wRFX A1C, CBC #### [facility] [address] [place] [address] [place] Hematocrit [Volume Fraction] of Blood by Automated countOrdered By: Ehsan Avina on 03-18-2025 Hematocrit (Bld) [Volume fraction] 46.4 % 38.8-50.0 [facility] Comment on above: Performed By: #### C MP wRFX A1C, CBC #### [facility] [address] [place] [address] [place] Hemoglobin [Mass/volume] in BloodOrdered By: Ehsan Avina on 03-18-2025 Hemoglobin (Bld) [Mass/Vol] 16.0 g/dL 13.0-17.0 [facility] Comment on above: Performed By: #### C MP wRFX A1C, CBC #### [facility] [address] Leukocytes [#/volume] correc ernst for nucleated erythrocytes in Blood by Automated counOrdered By: Ehsan Avina on 03-18-2025 WBC corrected for nucl RBC Auto (Bld) [#/Vol] 6.4 10*3/uL 4.1-10.5 [facility] Leukocytes [#/volume] in Blo od by Automated countOrdered By: Ehsan Avina on 03-18-2025 WBC (Bld) [#/Vol] 6.4 10*3/uL 4.1-10.5 [facility] Comment on above: Performed By: #### C MP wRFX A1C, CBC #### [facility] [address] [place] [address] [place] Lymphocytes [#/volume] in Bl ood by Automated countOrdered By: Ehsan Avina on 03-18-2025 Lymphocytes (Bld) [#/Vol] 1.2 10*3/uL 1.00-4.8 [facility] Comment on above: Performed By: #### C MP wRFX A1C, CBC #### [address] Lymphocytes/100 leukocytes i n Blood by Automated countOrdered By: Ehsan Avina on 03-18-2025 Lymphocytes/100 WBC (Bld) 18.9 % . [facility] Comment on above: Performed By: #### C MP wRFX A1C, CBC #### [facility] [address] [place] [address] [place] MCH [Entitic mass] by Automa ernst countOrdered By: Ehsan Avina on 03-18-2025 MCH (RBC) [Entitic mass] 32.9 pg 27.5-35.2 [facility] Comment on above: Performed By: #### C MP wRFX A1C, CBC #### [facility] [address] [place] [address] [place] MCHC Auto (RBC) [Mass/Vol]Or dered By: Ehsan Avina on 03-18-2025 MCHC (RBC) [Mass/Vol] 34.4 g/dL 32.5-35.6 [facility] MCV [Entitic volume] by Auto mated countOrdered By: Ehsan Avina on 03-18-2025 MCV (RBC) [Entitic vol] 95.7 fL 83.5-101 F [facility] Comment on above: Performed By: #### C MP wRFX A1C, CBC #### [facility] [address] [place] [address] [place] Monocytes [#/volume] in Bloo d by Automated countOrdered By: Ehsan Avina on 03-18-2025 Monocytes (Bld) [#/Vol] 0.6 10*3/uL 0.0-0.8 [facility] Comment on above: Performed By: #### C MP wRFX A1C, CBC #### [facility] [address] [place] [address] [place] Monocytes/100 leukocytes in Blood by Automated countOrdered By: Ehsan Avina on 03-18-2025 Monocytes/100 WBC (Bld) 9.7 % . F [facility] Comment on above: Performed By: #### C MP wRFX A1C, CBC #### [address] Neutrophils [#/volume] in Bl ood by Automated countOrdered By: Ehsan Avina on 03-18-2025 Neutrophils (Bld) [#/Vol] 3.6 10*3/uL 1.8-7.7 [facility] Comment on above: Performed By: #### C MP wRFX A1C, CBC #### [facility] [address] [place] [address] [place] Neutrophils/100 leukocytes i n Blood by Automated countOrdered By: Ehsan Avina on 03-18-2025 Neutrophils/100 WBC (Bld) 56.1 % . [facility] Comment on above: Performed By: #### C MP wRFX A1C, CBC #### [facility] [address] [place] [address] No Panel InformationOrdered By: Ehsan Avina on 03-18-2025 Estimated GFR (CKD-EPI) > 60.0 mL/Min [facility] Creatinine Clearance (Chem N/A [facility] Nucleated erythrocytes [Pres ence] in Blood by Automated countOrdered By: Ehsan Avina on 03-18-2025 Nucleated RBC Auto Ql (Bld) 0.1 /100{WBC} 0-0.5 [facility] Platelet mean volume [Entiti c volume] in Blood by Automated countOrdered By: Ehsan Avina on 03-18-2025 Platelet mean volume (Bld) [Entitic vol] 8.1 fL 6.6-10.1 [facility] Comment on above: Performed By: #### C MP wRFX A1C, CBC #### [facility] [address] [place] [address] [place] Platelets [#/volume] in Bloo d by Automated countOrdered By: Ehsan Avina on 03-18-2025 Platelets (Bld) [#/Vol] 213 10*3/uL 150-450 [facility] Comment on above: Performed By: #### C MP wRFX A1C, CBC #### [facility] [address] [place] [address] [place] Potassium [Moles/volume] in Serum or PlasmaOrdered By: Ehsan Avina on 03-18-2025 Potassium [Moles/Vol] 4.1 mmol/L 3.5-5.1 [facility] Comment on above: Performed By: #### C MP wRFX A1C, CBC #### [facility] [address] [place] [address] [place] Protein [Mass/volume] in Ser um or PlasmaOrdered By: Ehsan Avina on 03-18-2025 Protein [Mass/Vol] 6.9 g/dL 6.4-8.9 [facility] Comment on above: Performed By: #### C MP wRFX A1C, CBC #### [facility] [address] [place] [address] Serum globulin measurement b y calculation (mass/volume)Ordered By: Ehsan Avina on 03-18-2025 Globulin (S) [Mass/Vol] 2.7 g/dL [facility] Comment on above: Performed By: #### C MP wRFX A1C, CBC #### [facility] [address] [place] [address] Serum or plasma albumin/glob ulin mass ratioOrdered By: Ehsan Avina on 03-18-2025 Albumin/Globulin [Mass ratio] 1.6 {ratio} [facility] Comment on above: Performed By: #### C MP wRFX A1C, CBC #### [facility] [address] [place] [address] Serum or plasma anion gap de terminationOrdered By: Ehsan Avina on 03-18-2025 Anion gap [Moles/Vol] 9.4 mmol/L 6.0-15.0 [facility] Comment on above: Performed By: #### C MP wRFX A1C, CBC #### [facility] [address] [place] [address] Sodium [Moles/volume] in Ser um or PlasmaOrdered By: Ehsan Avina on 03-18-2025 Sodium [Moles/Vol] 137 mmol/L 136-145 [facility] Comment on above: Performed By: #### C MP wRFX A1C, CBC #### [facility] [address] [place] [address] Urea nitrogen [Mass/volume] in Serum or PlasmaOrdered By: Ehsan Avina on 03-18-2025 Urea nitrogen [Mass/Vol] 9 mg/dL 7-25 [facility] Comment on above: Performed By: #### C MP wRFX A1C, CBC #### [facility] [address] [place] [address] X-ray reportOrdered By: Rodney [place] on 03-13-2025 Study report [facility] [address] [place] [address] XRay Report Signed Patient: Chai Arnold MR#: [id number] : 1970 Acct:[id number] Age/Sex: 54 / M ADM Date: 5 Loc: [facility] [place] Room: Type: REG CLI Attending Dr: Ehsan Avina DO Copies to: [...] [place] M.D. 03/13/2025 10:25 PM Dictation Location: [place] [address] Transcribed By: [facility] 03/13/252224 Dictated By: Garrett [place] DO 03/13/252220 Signed By: 03/13/252224 [facility] XR foot RT min 3V*on 025 XR foot RT min 3V* [facility] [address] [place] [address] XRay Report Signed Patient: Chai Arnold MR#: [id number] : 1970 Acct:[id number] Age/Sex: 54 / M ADM Date: 03/13/25 Loc: [facility] [place] Room: Type: REG CLI Attending Dr: Ehsan Avina DO Copies to: [...] [place] M.D. 03/13/2025 10:25 PM Dictation Location: RADIO-PC-20 Transcribed By: [facility] 03/13/252224 Dictated By: Garrett [place] DO 03/13/252220 Signed By: 03/13/252224 Normal [facility] Doni 03-07-2025 CNPN Telephone (CORSM[facility]) ---- CHAI ARNOLD ([id number]) 1970 M Date Time Provider Department 03/07/25 LYDIA DRAKE During your visit today, we recorded the following information about you: Sterling Gonzalez 03/07/2025 1:33 PM Signed Chai Arnold - [phone] Patient contacted the office regarding the baclofen [...] Encounter Status:Closed by STERLING GONZALEZ on 03/07/25 [facility] ANORECTAL MANOMET [facility] 02-28-2025 PATIENT NAME: Chai Arnold PATIENT IDENTITY VERIFICATION COMPLETED USING TWO (2) IDENTIFIERS: Name and Date of confirmed by patient verbally. Referred by: Violette Maurer APRN.CNP Reason for testing: constipation Ileoanal pouch: No SENSITIVE EXAMINATION CONSENT: The sensitive examination was discussed with the Patient or Patient's Authorized C D Still Operator. As applicable, any other physician, advance practice provider, medical student, or other health professional student that will be observing or involved in the sensitive examination for educational or training purposes was discussed with the Patient or Authorized C D Still Operator. The Patient or Authorized C D Still Operator has agreed to proceed with the sensitive examination. Continuous Mining Operator offered:Patient accepts, visit chaperoned by Antonieta [...] mL. Normal sensitivity Electronically signed by: Sahil CASTANEDAN, RN Department of Colorectal Surgery Procedural RN [...] Guerra MD Colon & Rectal Surgery [facility] ANORECTAL MANOMET RYOrdered By: Aparna Guerra on 02-28-2025 [facility] Work Phone: Radiology Study observation (narrative) Usha dubose [facility] Work Phone: CNNURSEon 02-28-2025 CNNURSE Nurse Visit (KENIA) ---- CHAI ARNOLD ([id number]) 1970 M Date Time Provider Department 02/28/25 12:30 PM SAHIL BERGERON During your visit today, we recorded the following information about you: Referring Provider: VIOLETTE MAURER [[id number]] Allergies As of Date: 02/28/2025 (No Known Allergies) Date Reviewed: 02/28/2025 Reviewed by: Macey Meek OCCA - Fully Assessed Reason for Visit: Manometry [780] Visit Diagnosis:Pelvic floor dysfunction [M62.89] Order(s):ADULT [place] ANORECTAL MANOMETRY [1015230] Order #: [id number] Prescriptions as of 02/28/2025 - ALPRAZolam (XANAX) [...] Encounter Status:Closed by SAHIL BERGERON on 02/28/25 [facility] CNOVon 02-28-2025 CNOV Office Visit (KENIA) ---- CHAI ARNOLD ([id number]) 1970 M Date Time Provider Department 02/28/25 [...] a compounded preparation from a pharmacy in [place], and previously used hydrocortisone. He has not [...] retroflexed positi (more content not included)... Normal [facility] HISTORY PHYSICALon HISTORY PHYSICAL HNO ID: [id number] Author: LYDIA DRAKE PA-C Service: ? Author Type: Physician City Secretary Type: H&P Filed: 02/28/2025 13:41 Note Text: [...] a compounded preparation from a pharmacy in [place], and previously used hydrocortisone. He has not [...] No pa (more content not included)... Normal [facility] 02-11-2025 CNPN Telephone ([facility]) ---- CHAI ARNOLD ([id number]) 1970 M Date Time Provider Department 02/11/25 ASHLEY HAYWARD [facility] During your visit today, we recorded the following information about you: Chelle Christianson 02/11/2025 9:39 AM Signed Recevied referral from Satish davis fot pt referral for botox injections Allergies As of Date: 02/11/2025 (Not on File) Date Reviewed: Never Reviewed Reason for Visit: Appointment [186] Cmt: Left vm we received referral for botox injections Problem List As Of Date: 02/11/2025 (None) Encounter Status:Closed by CHELLE CHRISTIANSON on 02/11/25 [facility] Ambulatory Visit Summaryon 0 01-24-2025 Ambulatory Visit [...] EDT With: Caitlyn CHAVIS, Vivian Lance Where: [facility] [address] [place] [address]- Medications What How Much When Why Instructions New plecanatide (Trulance 3 mg oral tablet) 1 Tablets By Mouth Every day Constipation Constipation by outlet dysfunction Pelvic floor dysfunction Bloating Stress-related physiological response affecting medical condition Drug dependence Refills: 4 Pickup at [facility] Unchanged amlodipine (amLODIPine 5 mg Tab) [...] physician if questions or concerns Pharmacy Information [facility]: [address] [place] [phone] Allergies No Known Medication Allergies Problems Ongoing [...] for choosing us for your care. Normal [facility] Gastroenterology Office/Clin ic Noteon 01-24-2025 Gastroenterology Office/Clinic [...] him. Will refer to GI psychology at [facility] Advised to use squatty potty and [...] days could not see a provider at [facility] Review of Systems PHQ Score Initial [...] Daily, # 30 tab(s), Refills(s) 4, Pharmacy: [facility], 173, cm, 01/24/25 10:35:00 EDT, Height/Length Dosing, 86.3, kg, 01/24/25 10:35:00 EDT, Weight Dosing 2. Constipation by outlet dysfunction (K59.02: Outlet dysfunction constipation) Ordered: plecanatide, 3 mg = 1 tab(s), Oral, Daily, # 30 tab(s), Refills(s) 4, Pharmacy: [facility], 173, cm, 01/24/25 10:35:00 EDT, Height/Length Dosing, 86.3, kg, 01/24/25 10:35:00 EDT, Weight Dosing 3. Pelvic floor dysfunction (M62.89: Other specified disorders of muscle) Ordered: plecanatide, 3 mg = 1 tab(s), Oral, Daily, # 30 tab(s), Refills(s) 4, Pharmacy: [facility], 173, cm, 01/24/25 10:35:00 EDT, Height/Length Dosing, 86.3, kg, 01/24/25 10:35:00 EDT, Weight Dosing 4. Bloating (R14.0: Abdominal distension (gaseous)) Ordered: plecanatide, 3 mg = 1 tab(s), Oral, Daily, # 30 tab(s), Refills(s) 4, Pharmacy: [facility], 173, cm, 01/24/25 10:35:00 EDT, Height/Length Dosing, 86.3, kg, 01/24/25 10:35:00 EDT, Weight Dosing 5. Stress-related physiological response affecting medical condition (F54: Psychological and behavioral factors associated with disorders or diseases classified elsewhere) Ordered: (more content not included)... Normal [facility] Comment on above: Result Comment: Elec tronically Signed By: Mouchli Vivian CHAVIS\.br\Date and Time Signed: 01/24/25 10:46 EDT Ambulatory Visit Summaryon 0 01-09-2025 Ambulatory Visit Summary Ambulatory Visit Summary CHAI ARNOLD :1970 Visit Date:01/09/2025 Ambulatory Visit Instructions Your Diagnosis Constipation Constipation by outlet dysfunction Pelvic floor dysfunction Bloating Stress-related physiological response affecting medical condition Your Care Team Attending Physician - Vivian Brady MD Primary Care Physician - CISCO BONILLA DO [...] Someone Will Contact You Regarding These Appointments [facility] External Ambulatory Referral, Gastroenterology, 01/09/25 13:16:00 EDT, [...] choosing us for your care. Normal [facility] Gastroenterology Office/Clin ic Noteon 01-09-2025 Gastroenterology [...] him. Will refer to GI psychology at [facility] Advised to use squatty potty and [...] 11/18/2020 Recorded (more content not included)... Normal [facility] Comment on above: Result Comment: Elec tronically Signed By: Caitlyn CHAVIS, Vivian Lance\.br\Date and Time Signed: 01/09/25 13:17 EDT COMPLETE BLOOD COUNTon 12-10 Erythrocyte distribution width (RBC) [Ratio] 13.5 % Normal 11.5-15.0 [facility] Comment on above: Performed By: #### C BC, [facility], 2498-4, 53757-6, 2857-1, TSHR #### [facility] ([id number]) [address] [address] Hematocrit (Bld) [Volume fraction] 48.2 % Normal 39-49 [facility] Comment on above: Performed By: #### C BC, CMP, 2498-4, 22545-5, 2857-1, TSHR #### [facility] ([id number]) [address], [address] [place] [address] Hemoglobin (Bld) [Mass/Vol] 16.1 g/dL Normal 13.0-17.0 [facility] Comment on above: Performed By: #### C BC, CMP, 2498-4, 65147-9, 2857-1, TSHR #### [facility] ([id number]) [address], [facility] [address] [place] [address] MCH (RBC) [Entitic mass] 31.9 pg Normal 27-34 [facility] Comment on above: Performed By: #### C BC, CMP, 2498-4, 03969-2, 2857-1, TSHR #### [facility] ([id number]) [address], [address] [place] [address] MCHC (RBC) [Mass/Vol] 33.4 g/dL Normal 32-36 [facility] Comment on above: Performed By: #### C BC, CMP, 2498-4, 58679-6, 2857-1, TSHR #### [facility] ([id number]) [address], [facility] [address] [place] [address] MCV (RBC) [Entitic vol] 96 fL Normal 80-100 P [facility] Comment on above: Performed By: #### C BC, CMP, 2498-4, 66432-2, 2857-1, TSHR #### [facility] ([id number]) [address], [address] [place] [address] Platelet mean volume (Bld) [Entitic vol] 9.6 fL Normal 7-12 [facility] Comment on above: Performed By: #### C BC, CMP, 2498-4, 31988-7, 2857-1, TSHR #### [facility] ([id number]) [address], [address] [place] [address] Platelets (Bld) [#/Vol] 184 10*3/uL Normal 150-450 [facility] Comment on above: Performed By: #### C BC, CMP, 2498-4, 12235-5, 2857-1, TSHR #### [facility] ([id number]) [address], [address] [place] [address] RBC COUNT 5.04 X10E12/L Normal 4.10-5.70 [facility] Comment on above: Performed By: #### C BC, CMP, 2498-4, 84100-7, 2857-1, TSHR #### [facility] ([id number]) [address], [address] [place] [address] WBC (Bld) [#/Vol] 5.2 10*3/uL Normal 4.0-11.0 [facility] Comment on above: Performed By: #### C BC, CMP, 2498-4, 71074-3, 2857-1, TSHR #### [facility] ([id number]) [address] [place] [address] COMPREHENSIVE METABOLIC PANE Vern 12-10-2024 Albumin [Mass/Vol] 4.5 g/dL Normal 3.2-5.3 [facility] Comment on above: Performed By: #### C BC, CMP, 2498-4, 57436-7, 2857-1, TSHR #### [facility] ([id number]) [address], [address] [place] [address] ALP [Catalytic activity/Vol] 101 U/L Normal 39-130 [facility] Comment on above: Performed By: #### C BC, CMP, 2498-4, 30041-5, 2857-1, TSHR #### [facility] ([id number]) [address], [address] [place] [address] ALT [Catalytic activity/Vol] 38 U/L Normal 0-40 [facility] Comment on above: Performed By: #### C BC, CMP, 2498-4, 03509-2, 2857-1, TSHR #### [facility] ([id number]) [address], [address] [place] [address] Anion gap [Moles/Vol] 11 mmol/L Normal 5-15 [facility] Comment on above: Performed By: #### C BC, CMP, 2498-4, 61173-2, 2857-1, TSHR #### [facility] ([id number]) [address], [address] [place] [address] AST [Catalytic activity/Vol] 28 U/L Normal 0-41 [facility] Comment on above: Performed By: #### C BC, CMP, 2498-4, 23006-3, 2857-1, TSHR #### [facility] ([id number]) [address], [address] [place] [address] Bilirubin [Mass/Vol] 0.6 mg/dL Normal 0.3-1.2 [facility] Comment on above: Performed By: #### C BC, CMP, 2498-4, 36978-8, 2857-1, TSHR #### [facility] ([id number]) [address], [address] [place] [address] Calcium [Mass/Vol] 9.6 mg/dL Normal 8.5-10.5 [facility] Comment on above: Performed By: #### C BC, CMP, 2498-4, 24516-8, 2857-1, TSHR #### [facility] ([id number]) [address], [address] [place] [address] Chloride [Moles/Vol] 105 mmol/L Normal 98-109 [facility] Comment on above: Performed By: #### C BC, CMP, 2498-4, 69494-3, 2857-1, TSHR #### [facility] ([id number]) [address], [address] [place] [address] CO2 [Moles/Vol] 26 mmol/L Normal 22-32 [facility] Comment on above: Performed By: #### C BC, CMP, 2498-4, 04400-9, 2857-1, TSHR #### [facility] ([id number]) [address], [address] [place] [address] Creatinine [Mass/Vol] 0.94 mg/dL Normal 0.60-1.30 [facility] Comment on above: Result Comment: METH OD TRACEABLE TO IDMS STANDARD Performed By: #### C KARLEY, CMP, 2498-4, 46834-0, 2857-1, TSHR #### [facility] ([id number]) [address] [place] [address] eGFR (CKD-EPI) NON-RACE DEPENDENT >90 Normal >59 [facility] Comment on above: Result Comment: Reported eGFR is based on the CKD-EPI 2020 equation that does not use a race coefficient. Performed By: #### C KARLEY, CMP, 2498-4, 02060-0, 2857-1, TSHR #### [facility] ([id number]) [address], [address] [place] [address] Glucose [Mass/Vol] 86 mg/dL Normal 65-99 [facility] Comment on above: Performed By: #### Remberto CRANDALL, CMP, 2498-4, 44986-8, 2857-1, TSHR #### [facility] ([id number]) [address], [address] [place] [address] Potassium [Moles/Vol] 4.2 mmol/L Normal 3.5-5.0 [facility] Comment on above: Performed By: #### Remberto CRANDALL, CMP, 2498-4, 13562-8, 2857-1, TSHR #### [facility] ([id number]) [address], [address] [place] [address] Protein [Mass/Vol] 7.4 g/dL Normal 6.0-8.0 [facility] Comment on above: Performed By: #### C BC, CMP, 2498-4, 15912-6, 2857-1, TSHR #### [facility] ([id number]) [address], [address] [place] [address] Sodium [Moles/Vol] 142 mmol/L Normal 134-146 [facility] Comment on above: Performed By: #### C BC, CMP, 2498-4, 82905-0, 2857-1, TSHR #### [facility] ([id number]) [address], [facility] [address] [place] [address] Urea nitrogen [Mass/Vol] 13 mg/dL Normal 5-23 [facility] Comment on above: Performed By: #### Remberto BC, CMP, 2498-4, 10879-3, 2857-1, TSHR #### [facility] ([id number]) [address], [facility] [address] [place] [address] IRONon 12-10-2024 Iron [Mass/Vol] 184 ug/dL Normal 50-212 [facility] Comment on above: Performed By: ###Oseas Sr BC, CMP, 2498-4, 32284-4, 2857-1, TSHR #### [facility] ([id number]) [address], [address] [address] Lipid 1996 panelon Cholesterol [Mass/Vol] 183 mg/dL Normal 150-200 [facility] Comment on above: Performed By: ###Oseas Sr BC, CMP, 2498-4, 56487-6, 2857-1, TSHR #### [facility] ([id number]) [address] [address] Cholesterol in HDL [Mass/Vol] 38 mg/dL Low >39 [facility] Comment on above: Result Comment: HDL <40 mg/dL - High Risk HDL > or = 40mg/dL- Desirable HDL >60 mg/dL - Negative Risk Performed By: #### Remberto BC, CMP, 2498-4, 15172-1, 2857-1, TSHR #### [facility] ([id number]) [address] [address] Cholesterol in LDL [Mass/Vol] 121 mg/dL Normal <130 [facility] Comment on above: Result Comment: LDL <100 mg/dL - Desirable LDL >160 mg/dL - High Risk Performed By: #### C BC, CMP, 2498-4, 80155-0, 2857-1, TSHR #### [facility] ([id number]) [address] [address] Cholesterol in VLDL [Mass/Vol] 24 mg/dL Normal 0-30 [facility] Comment on above: Performed By: #### Remberto BC, CMP, 2498-4, 55708-0, 2857-1, TSHR #### [facility] ([id number]) [address] [address] CHOLESTEROL:HDL 4.8 Normal 1.0-5.0 [facility] Comment on above: Performed By: #### Remberto BC, CMP, 2498-4, 82143-2, 2857-1, TSHR #### [facility] [facility] ([id number]) [address] [address] Triglyceride [Mass/Vol] 119 mg/dL Normal 27-150 [facility] Comment on above: Performed By: #### Remberto BC, CMP, 2498-4, 60812-2, 2857-1, TSHR #### [facility] ([id number]) [address] [address] Prostate specific Ag [Mass/V ol]on 12-10-2024 PSA SCREEN 0.57 ng/mL Normal 0.00-4.00 [facility] Comment on above: Result Comment: The method used for this test is Graciela Shashi DXI chemiluminescent immunoassay. Values obtained by different assay methods cannot be used interchangeably. Performed By: #### C BC, CMP, 2498-4, 47129-1, 2857-1, TSHR #### [facility] ([id number]) [address] [address] TSH WITH REFLEXon 12-10-2024 TSH 1.34 uIU/mL Normal 0.49-4.67 [facility] Comment on above: Performed By: #### C BC, CMP, 2498-4, 19768-5, 2857-1, TSHR #### [facility] ([id number]) [address] [address] COMPLETE BLOOD COUNTon 09-11 Erythrocyte distribution width (RBC) [Ratio] 13.4 % Normal 11.5-15.0 [facility] Comment on above: Performed By: #### Remberto CRANDALL, CMP, 2857-1, TSHR #### [facility] ([id number]) [address] [address] Hematocrit (Bld) [Volume fraction] 47.4 % Normal 39-49 [facility] Comment on above: Performed By: #### Remberto BC, CMP, 2857-1, TSHR #### [facility] ([id number]) [address] [address] Hemoglobin (Bld) [Mass/Vol] 16.4 g/dL Normal 13.0-17.0 [facility] Comment on above: Performed By: #### Remberto BC, CMP, 2857-1, TSHR #### [facility] ([id number]) [address] [address] MCH (RBC) [Entitic mass] 32.4 pg Normal 27-34 [facility] Comment on above: Performed By: #### Remberto BC, CMP, 2857-1, TSHR #### [facility] ([id number]) [address] [place] [address] MCHC (RBC) [Mass/Vol] 34.6 g/dL Normal 32-36 [facility] Comment on above: Performed By: #### Remberto BC, CMP, 2857-1, TSHR #### [facility] ([id number]) [address] [address] [place] [address] MCV (RBC) [Entitic vol] 94 fL Normal 80-100 [facility] Comment on above: Performed By: #### Remberto BC, CMP, 2857-1, TSHR #### [facility] ([id number]) [address] [address] [place] [address] Platelet mean volume (Bld) [Entitic vol] 9.4 fL Normal 7-12 [facility] Comment on above: Performed By: #### Remberto CRANDALL, CMP, 2857-1, TSHR #### [facility] ([id number]) [address] [address] [place] [address] Platelets (Bld) [#/Vol] 235 10*3/uL Normal 150-450 [facility] Comment on above: Performed By: #### Remberto BC, CMP, 2857-1, TSHR #### [facility] ([id number]) [address] [address] [place] [address] RBC COUNT 5.06 X10E12/L Normal 4.10-5.70 [facility] Comment on above: Performed By: #### Remberto BC, CMP, 2857-1, TSHR #### [facility] ([id number]) [address] [address] [place] [address] WBC (Bld) [#/Vol] 7.0 10*3/uL Normal 4.0-11.0 [facility] Comment on above: Performed By: #### Remberto BC, CMP, 2857-1, TSHR #### [facility] ([id number]) [address] [place] [address] COMPREHENSIVE METABOLIC PANE Vern 09-11-2024 Albumin [Mass/Vol] 4.5 g/dL Normal 3.2-5.3 [facility] Comment on above: Performed By: #### C BC, CMP, 2857-1, TSHR #### [facility] ([id number]) [address] [place] [address] ALP [Catalytic activity/Vol] 133 U/L High 39-130 [facility] Comment on above: Performed By: #### C BC, CMP, 2857-1, TSHR #### [facility] ([id number]) [address] [place] [address] ALT [Catalytic activity/Vol] 20 U/L Normal 0-40 [facility] Comment on above: Performed By: #### Remberto BC, CMP, 2857-1, TSHR #### [facility] ([id number]) [address] [place] [address] Anion gap [Moles/Vol] 10 mmol/L Normal 5-15 [facility] Comment on above: Performed By: #### Remberto BC, CMP, 2857-1, TSHR #### [facility] ([id number]) [address] [place] [address] AST [Catalytic activity/Vol] 26 U/L Normal 0-41 [facility] Comment on above: Performed By: #### C BC, CMP, 2857-1, TSHR #### [facility] ([id number]) [address] [place] [address] Bilirubin [Mass/Vol] 0.8 mg/dL Normal 0.3-1.2 [facility] Comment on above: Performed By: #### C BC, CMP, 2857-1, TSHR #### [facility] ([id number]) [address] [place] [address] Calcium [Mass/Vol] 9.6 mg/dL Normal 8.5-10.5 [facility] Comment on above: Performed By: #### Remberto CRANDALL CMP, 2857-1, TSHR #### [facility] ([id number]) [address] [place] [address] Chloride [Moles/Vol] 103 mmol/L Normal 98-109 [facility] Comment on above: Performed By: #### Remberto CRANDALL CMP, 2857-1, TSHR #### [facility] ([id number]) [address] [facility] [address] [place] [address] CO2 [Moles/Vol] 27 mmol/L Normal 22-32 [facility] Comment on above: Performed By: #### Remberto CRANDALL CMP, 2857-1, TSHR #### [facility] ([id number]) [address] [place] [address] Creatinine [Mass/Vol] 1.05 mg/dL Normal 0.60-1.30 [facility] Comment on above: Result Comment: METH OD TRACEABLE TO IDMS STANDARD Performed By: #### Remberto CRANDALL CMP, 2857-1, TSHR #### [facility] ([id number]) [address] [facility] [address] [place] [address] GFR/1.73 sq M.predicted among non-blacks MDRD (S/P/Bld) [Vol rate/Area] 83 mL/min/{1.73_m2} Normal >59 [facility] Comment on above: Result Comment: Reported eGFR is based on the CKD-EPI 2020 equation that does not use a race coefficient. Performed By: #### Remberto CRANDALL CMP, 2857-1, TSHR #### [facility] ([id number]) [address] [place] [address] Glucose [Mass/Vol] 87 mg/dL Normal 65-99 [facility] Comment on above: Performed By: #### Remberto CRANDALL, CMP, 2857-1, TSHR #### [facility] ([id number]) [address] [address] [place] [address] Potassium [Moles/Vol] 3.9 mmol/L Normal 3.5-5.0 [facility] Comment on above: Performed By: #### Remberto CRANDALL CMP, 2857-1, TSHR #### [facility] ([id number]) [address] [address] [place] [address] Protein [Mass/Vol] 7.3 g/dL Normal 6.0-8.0 [facility] Comment on above: Performed By: #### Remberto CRANDALL CMP, 2857-1, TSHR #### [facility] ([id number]) [address] [address] [place] [address] Sodium [Moles/Vol] 140 mmol/L Normal 134-146 [facility] Comment on above: Performed By: #### Remberto CRANDALL CMP, 2857-1, TSHR #### [facility] ([id number]) [address] [address] [place] [address] Urea nitrogen [Mass/Vol] 6 mg/dL Normal 5-23 [facility] Comment on above: Performed By: #### Remberto CRANDALL CMP, 2857-1, TSHR #### [facility] ([id number]) [address] [address] [place] [address] Prostate specific Ag [Mass/V ol]on 09-11-2024 PSA SCREEN 0.71 ng/mL Normal 0.00-4.00 [facility] Comment on above: Result Comment: The method used for this test is Graciela Savannah DXI chemiluminescent immunoassay. Values obtained by different assay methods cannot be used interchangeably. Performed By: #### Remberto CRANDALL, CMP, 2857-1, TSHR #### [facility] ([id number]) [address] [address] [place] [address] TSH WITH REFLEXon 09-11-2024 TSH 1.29 uIU/mL Normal 0.49-4.67 [facility] Comment on above: Performed By: #### C BC, CMP, 2857-1, TSHR #### [facility] ([id number]) [address] [place] [address] CBC AND AUTO DIFFon 05-15-20 ABSOLUTE BASOPHIL 0.1 X10E9/L Normal 0.0-0.2 [facility] Comment on above: Performed By: #### C BCA, CMP, 3040-3, 89342-8 #### [facility] ([id number]) [address] [place] [address] ABSOLUTE NEUTROPHIL 5.7 X10E9/L Normal 1.5-6.6 [facility] Comment on above: Performed By: #### C BCA, CMP, 3040-3, 55969-2 #### [facility] ([id number]) [address] [place] [address] Basophils/100 WBC (Bld) 0.7 % Normal [facility] Comment on above: Performed By: #### C BCA, CMP, 3040-3, 03960-4 #### [facility] ([id number]) [address] [place] [address] Eosinophils (Bld) [#/Vol] 0.4 10*3/uL Normal 0.0-0.4 [facility] Comment on above: Performed By: #### C BCA, CMP, 3040-3, 88939-6 #### [facility] ([id number]) [address] [place] [address] Eosinophils/100 WBC (Bld) 4.9 % Normal [facility] Comment on above: Performed By: #### C BCA, CMP, 3040-3, 52909-2 #### [facility] ([id number]) [address] [place] [address] Erythrocyte distribution width (RBC) [Ratio] 12.3 % Normal 11.5-15.0 [facility] Comment on above: Performed By: #### C ALEXANDRIA ANTOINE, 3040-3, 76603-4 #### [facility] ([id number]) [address] [place] [address] Hematocrit (Bld) [Volume fraction] 41.8 % Normal 39-49 [facility] Comment on above: Performed By: #### C ALEXANDRIA ANTOINE, 3, 23559-6 #### [facility] ([id number]) [address] [place] [address] Hemoglobin (Bld) [Mass/Vol] 15.1 g/dL Normal 13.0-17.0 [facility] Comment on above: Performed By: #### Remberto ANTOINE CMP, 3, 63618-2 #### [facility] ([id number]) [address] [place] [address] Lymphocytes (Bld) [#/Vol] 1.4 10*3/uL Normal 1.0-3.5 [facility] Comment on above: Performed By: #### Remberto ANTOINE CMP, 30403, 38022-6 #### [facility] ([id number]) [address] [place] [address] Lymphocytes/100 WBC (Bld) 17.3 % Normal [facility] Comment on above: Performed By: #### Remberto ANTOINE CMP, 304-3, 60997-0 #### [facility] ([id number]) [address] [place] [address] MCH (RBC) [Entitic mass] 32.3 pg Normal 27-34 [facility] Comment on above: Performed By: #### C BCA, CMP, 0-3, 31314-2 #### [facility] ([id number]) [address] [place] [address] MCHC (RBC) [Mass/Vol] 36.0 g/dL Normal 32-36 [facility] Comment on above: Performed By: #### C ARASH, CMP, 0-3, 95756-1 #### [facility] ([id number]) [address] [place] [address] MCV (RBC) [Entitic vol] 90 fL Normal 80-100 [facility] Comment on above: Performed By: #### C ARASH, CMP, 0-3, 27996-9 #### [facility] ([id number]) [address] [place] [address] Monocytes (Bld) [#/Vol] 0.6 10*3/uL Normal 0-0.9 [facility] Comment on above: Performed By: #### C ARASH, CMP, 0-3, 32951-1 #### [facility] ([id number]) [address] [place] [address] Monocytes/100 WBC (Bld) 7.6 % Normal [facility] Comment on above: Performed By: #### Remberto ANTOINE, CMP, 3039-3, 02130-0 #### [facility] ([id number]) [address] [place] [address] Neutrophils/100 WBC (Bld) 69.5 % Normal [facility] Comment on above: Performed By: #### Remberto BCA, CMP, 0-3, 95993-0 #### [facility] ([id number]) [address] [place] [address] Platelet mean volume (Bld) [Entitic vol] 8.2 fL Normal 7-12 [facility] Comment on above: Performed By: #### C BCA, CMP, 0-3, 05861-7 #### [facility] ([id number]) [address] [place] [address] Platelets (Bld) [#/Vol] 254 10*3/uL Normal 150-450 [facility] Comment on above: Performed By: #### C BCA, CMP, 3040-3, 93943-8 #### [facility] ([id number]) [address] [place] [address] RBC COUNT 4.66 X10E12/L Normal 4.10-5.70 [facility] Comment on above: Performed By: #### C BCA, CMP, 3040-3, 93792-4 #### [facility] ([id number]) [address] [place] [address] WBC (Bld) [#/Vol] 8.1 10*3/uL Normal 4.0-11.0 [facility] Comment on above: Performed By: #### C BCA, CMP, 3040-3, 58933-9 #### [facility] ([id number]) [address] [place] [address] COMPREHENSIVE METABOLIC PANE [facility] 05-15-2024 Albumin [Mass/Vol] 4.5 g/dL Normal 3.2-5.3 [facility] Comment on above: Performed By: #### C BCA, CMP, 3040-3, 92097-0 #### [facility] ([id number]) [address] [place] [address] ALP [Catalytic activity/Vol] 105 U/L Normal 39-130 [facility] Comment on above: Performed By: #### C BCA, CMP, 3040-3, 53961-1 #### [facility] ([id number]) [address] [place] [address] ALT [Catalytic activity/Vol] 33 U/L Normal 0-40 [facility] Comment on above: Performed By: #### C BCA, CMP, 3040-3, 22624-4 #### [facility] ([id number]) [address] [place] [address] Anion gap [Moles/Vol] 9 mmol/L Normal 5-15 [facility] Comment on above: Performed By: #### C BCA, CMP, 3040-3, 14243-0 #### [facility] ([id number]) [address] [place] [address] AST [Catalytic activity/Vol] 29 U/L Normal 0-41 [facility] Comment on above: Performed By: #### C BCA, CMP, 3040-3, 08398-7 #### [facility] ([id number]) [address] [place] [address] Bilirubin [Mass/Vol] 0.9 mg/dL Normal 0.3-1.2 [facility] Comment on above: Performed By: #### C BCA, CMP, 3040-3, 60421-2 #### [facility] ([id number]) [address] [place] [address] Calcium [Mass/Vol] 9.1 mg/dL Normal 8.5-10.5 [facility] Comment on above: Performed By: #### C BCA, CMP, 3040-3, 25763-6 #### [facility] ([id number]) [address] [place] [address] Chloride [Moles/Vol] 96 mmol/L Low 98-109 [facility] Comment on above: Performed By: #### C BCA, CMP, 3040-3, 73914-3 #### [facility] ([id number]) [address] [place] [address] CO2 [Moles/Vol] 24 mmol/L Normal 22-32 [facility] Comment on above: Performed By: #### C ALEXANDRIA ANTOINE, 3040-3, 20691-1 #### [facility] ([id number]) [address] [place] [address] Creatinine [Mass/Vol] 0.91 mg/dL Normal 0.70-1.20 [facility] Comment on above: Result Comment: METH OD TRACEABLE TO IDMS STANDARD Performed By: #### C ALEXANDRIA ANTOINE, 3040-3, 45482-9 #### [facility] ([id number]) [address] [place] [address] eGFR (CKD-EPI) NON-RACE DEPENDENT >90 Normal >59 [facility] Comment on above: Result Comment: Reported eGFR is based on the CKD-EPI 2020 equation that does not use a race coefficient. Performed By: #### C ALEXANDRIA ANTOINE, 3040-3, 45685-1 #### [facility] ([id number]) [address] [place] [address] Glucose [Mass/Vol] 97 mg/dL Normal 65-99 [facility] Comment on above: Performed By: #### C ALEXANDRIA ANTOINE, 3040-3, 96608-8 #### [facility] ([id number]) [address] [place] [address] Potassium [Moles/Vol] 3.2 mmol/L Low 3.5-5.0 [facility] Comment on above: Performed By: #### C ALEXANDRIA ANTOINE, 3040-3, 80581-0 #### [facility] ([id number]) [address] [place] [address] Protein [Mass/Vol] 7.2 g/dL Normal 6.0-8.0 [facility] Comment on above: Performed By: #### C ALEXANDRIA ANTOINE, 3040-3, 31729-6 #### [facility] ([id number]) [address] [place] [address] Sodium [Moles/Vol] 129 mmol/L Low 134-146 [facility] Comment on above: Performed By: #### C ARASH CMP, 3040-3, 28678-5 #### [facility] ([id number]) [address] [place] [address] Urea nitrogen [Mass/Vol] 15 mg/dL Normal 5-23 [facility] Comment on above: Performed By: #### C ALEXANDRIA ANTOINE, 3040-3, 16914-7 #### [facility] ([id number]) [address] [place] [address] LIPASEon 05-15-2024 Lipase [Catalytic activity/Vol] 37 U/L Normal 17-40 [facility] Comment on above: Performed By: #### C ALEXANDRIA ANTOINE, 3040-3, 43628-4 #### [facility] ([id number]) [address] [place] [address] Lactate (P cherie) [Moles/Vol]o n 05-15-2024 LACTATE W/REFLEX 1.0 mmol/L Normal 0.4-2.0 [facility] Comment on above: Result Comment: Result did not trigger repeat Lactate, re-order if needed. Performed By: #### 3 2133-1 #### [facility] ([id number]) [address] [place] [address] Troponin I.cardiac High sens itivity method [Mass/Vol]on 05-15-2024 1 HOUR TROP I, HIGH SENSITIVITY 3 ng/L Normal <21 [facility] Comment on above: Performed By: #### 8 9579-7 #### [facility] ([id number]) [address] [place] [address] TROPONIN I, HIGH SENSITIVITY 3 ng/L Normal <21 [facility] Comment on above: Performed By: #### C BCA, CMP, 3040-3, 11885-9 #### [facility] ([id number]) [address] [facility] [place] [address] Bacteria [Presence] in Urine by AutomatedOrdered By: Nish Davidson on 03-03-2024 Bacteria Auto Ql (U) None seen [HPF] None Seen [facility] Basophils Auto (Bld) [#/Vol] Ordered By: James De on 03-03-2024 Basophils (Bld) [#/Vol] 0.0 10*3/uL 0.0-0.2 [facility] Basophils/100 WBC Auto (Bld) Ordered By: James eD on 03-03-2024 Basophils/100 WBC (Bld) 0.4 % . F [facility] Bilirubin Test strip Ql (U)O rdered By: Nish Davidson on 03-03-2024 Bilirubin Ql (U) Negative Negative [facility] Calcium [Mass/volume] in Ser um or PlasmaOrdered By: James De on 03-03-2024 Calcium [Mass/Vol] 9.5 mg/dL 8.6-10.3 [facility] Carbon dioxide, total [Moles /volume] in Serum or PlasmaOrdered By: James De on 03-03-2024 CO2 [Moles/Vol] 25.3 mmol/L 21.0-31.0 [facility] Chloride [Moles/volume] in S dereje or PlasmaOrdered By: James De on 03-03-2024 Chloride [Moles/Vol] 102 mmol/L 98-107 [facility] Color Auto (U)Ordered By: Dimitry Davidson on 03-03-2024 Color (U) Yellow Yellow [facility] Creatinine [Mass/volume] in Serum or PlasmaOrdered By: James De on 03-03-2024 Creatinine [Mass/Vol] 1.18 mg/dL 0.70-1.30 [facility] Eosinophils Auto (Bld) [#/Vo l]Ordered By: James De on 03-03-2024 Eosinophils (Bld) [#/Vol] 0.2 10*3/uL 0.0-0.45 [facility] Eosinophils/100 WBC Auto (Bl d)Ordered By: James De on 03-03-2024 Eosinophils/100 WBC (Bld) 2.6 % . [facility] Epithelial cells.squamous [# /area] in Urine sediment by Automated countOrdered By: Nish Davidson on 03-03-2024 Epithelial cells.squamous Auto (Urine sed) [#/Area] 1-2 [HPF] 0-2 [facility] Erythrocyte distribution wid th Auto (RBC) [Ratio]Ordered By: James De on 03-03-2024 Erythrocyte distribution width (RBC) [Ratio] 12.6 % 12.0-14.8 [facility] Erythrocytes [#/area] in Uri ne sediment by Automated countOrdered By: Nish Davidson on 03-03-2024 RBC Auto (Urine sed) [#/Area] None seen [HPF] 0-4 [facility] Glucose [Mass/volume] in Ser um or PlasmaOrdered By: James De on 03-03-2024 Glucose [Mass/Vol] 83 mg/dL 70-100 [facility] Comment on above: ADA recommended refe rence rangeRandom Glucose Reference Range is dependent on time and content of last meal. Glucose of more than 200 mg/dL in a nonstressed, ambulatory subject supports the diagnosis of Diabetes Mellitus. Glucose [Mass/volume] in Uri ne by Test stripOrdered By: Nish Davidson on 03-03-2024 Glucose Test strip (U) [Mass/Vol] Normal mg/dL Normal [facility] Hematocrit Auto (Bld) [Volum e fraction]Ordered By: James De on 03-03-2024 Hematocrit (Bld) [Volume fraction] 52.6 % High 38.8-50.0 [facility] Hemoglobin Test strip Ql (U) Ordered By: Nish Davidson on 03-03-2024 Hemoglobin Ql (U) Negative Negative [facility] Hemoglobin [Mass/volume] in BloodOrdered By: James De on 03-03-2024 Hemoglobin (Bld) [Mass/Vol] 18.5 g/dL High 13.0-17.0 [facility] Hyaline casts [#/area] in Ur ine sediment by Automated countOrdered By: Nish Davidson on 03-03-2024 Hyaline casts Auto (Urine sed) [#/Area] 0-8 [LPF] 0-8 [facility] Ketones Test strip Ql (U)Ord ered By: Nish Davidson on 03-03-2024 Ketones Ql (U) 2+ High Negative [facility] Leukocyte esterase [Presence ] in Urine by Test stripOrdered By: Nish Davidson on 03-03-2024 Leukocyte esterase Test strip Ql (U) Negative Negative [facility] Leukocytes [#/area] in Urine sediment by Automated countOrdered By: Nish Davidson on 03-03-2024 WBC Auto (Urine sed) [#/Area] 1-2 [HPF] 0-4 [facility] Leukocytes [#/volume] correc ernst for nucleated erythrocytes in Blood by Automated counOrdered By: James De on 03-03-2024 WBC corrected for nucl RBC Auto (Bld) [#/Vol] 9.0 10*3/uL 4.1-10.5 [facility] Lymphocytes Auto (Bld) [#/Vo l]Ordered By: James De on 03-03-2024 Lymphocytes (Bld) [#/Vol] 1.2 10*3/uL 1.00-4.8 [facility] Lymphocytes/100 WBC Auto (Bl d)Ordered By: James De on 03-03-2024 Lymphocytes/100 WBC (Bld) 13.4 % . [facility] MCH Auto (RBC) [Entitic mass ]Ordered By: James De on 03-03-2024 MCH (RBC) [Entitic mass] 32.8 pg 27.5-35.2 [facility] MCHC Auto (RBC) [Mass/Vol]Or dered By: James De on 03-03-2024 MCHC (RBC) [Mass/Vol] 35.1 g/dL 32.5-35.6 [facility] MCV Auto (RBC) [Entitic vol] Ordered By: James De on 03-03-2024 MCV (RBC) [Entitic vol] 93.4 fL 83.5-101 F [facility] Monocyte distribution width [Entitic volume] in Blood by AutomatedOrdered By: James De on 03-03-2024 Monocyte distribution width Auto (Bld) [Entitic vol] 17.08 % 0.00-20.00 [facility] Monocytes Auto (Bld) [#/Vol] Ordered By: James De on 03-03-2024 Monocytes (Bld) [#/Vol] 0.8 10*3/uL 0.0-0.8 [facility] Monocytes/100 WBC Auto (Bld) Ordered By: James De on 03-03-2024 Monocytes/100 WBC (Bld) 8.7 % . [facility] Mucus [Presence] in Urine by AutomatedOrdered By: Nish Davidson on 03-03-2024 Mucus Auto Ql (U) 1+ [LPF] Abnormal [facility] Neutrophils Auto (Bld) [#/Vo l]Ordered By: James De on 03-03-2024 Neutrophils (Bld) [#/Vol] 6.7 10*3/uL 1.8-7.7 [facility] Neutrophils/100 WBC Auto (Bl d)Ordered By: James De on 03-03-2024 Neutrophils/100 WBC (Bld) 74.9 % . [facility] Nitrite Test strip Ql (U)Ord ered By: Nish Davidson on 03-03-2024 Nitrite Ql (U) Negative Negative [facility] No Panel InformationOrdered By: James De on 03-03-2024 Estimated GFR (CKD-EPI) > 60.0 mL/Min [facility] Creatinine Clearance (Chem 68.43 [facility] Nucleated erythrocytes [Pres ence] in Blood by Automated countOrdered By: James De on 03-03-2024 Nucleated RBC Auto Ql (Bld) 0.4 /100{WBC} 0-0.5 [facility] Platelet adequacy [Presence] in Blood by Light microscopyOrdered By: James De on 03-03-2024 Platelets LM Ql (Bld) Normal Normal [facility] Platelet mean volume Auto (B ld) [Entitic vol]Ordered By: James De on 03-03-2024 Platelet mean volume (Bld) [Entitic vol] 8.4 fL 6.6-10.1 [facility] Platelet morphology finding [Identifier] in BloodOrdered By: James De on 03-03-2024 Platelet morphology finding Nom (Bld) Normal Normal [facility] Platelets Auto (Bld) [#/Vol] Ordered By: James De on 03-03-2024 Platelets (Bld) [#/Vol] 207 10*3/uL 150-450 [facility] Potassium [Moles/volume] in Serum or PlasmaOrdered By: James De on 03-03-2024 Potassium [Moles/Vol] 3.7 mmol/L 3.5-5.1 [facility] Protein Test strip (U) [Mass /Vol]Ordered By: Nish Davidson on 03-03-2024 Protein (U) [Mass/Vol] Trace mg/dL High Negative [facility] RBC Auto (Bld) [#/Vol]Ordere d By: James De on 03-03-2024 RBC (Bld) [#/Vol] 5.64 10*6/uL High 3.90-5.60 [facility] RBC morphologyOrdered By: Asad De on 03-03-2024 RBC morphology finding Nom (Bld) Normal Normal [facility] Serum or plasma anion gap de terminationOrdered By: James De on 03-03-2024 Anion gap [Moles/Vol] 12.4 mmol/L 6.0-15.0 [facility] Sodium [Moles/volume] in Ser um or PlasmaOrdered By: James De on 03-03-2024 Sodium [Moles/Vol] 136 mmol/L 136-145 [facility] Specific gravity Test strip (U) [Rel density]Ordered By: Nish Davidson on 03-03-2024 Specific gravity (U) [Rel density] 1.015 1.001-1.030 [facility] Transitional cells [#/area] in Urine by Computer assisted methodOrdered By: Nish Davidson on 03-03-2024 Transitional cells Computer assisted (U) [#/Area] 1-2 [HPF] High 0-1 [facility] Urea nitrogen [Mass/volume] in Serum or PlasmaOrdered By: James De on 03-03-2024 Urea nitrogen [Mass/Vol] 8 mg/dL 7 [facility] Urine appearanceOrdered By: Nish Davidson on 03-03-2024 Appearance (U) Clear Clear [facility] Urobilinogen Test strip (U) [Mass/Vol]Ordered By: Nish Davidson on 03-03-2024 Urobilinogen (U) [Mass/Vol] Normal mg/dL Normal [facility] WBC Auto (Bld) [#/Vol]Ordere d By: James De on 03-03-2024 WBC (Bld) [#/Vol] 9.0 10*3/uL 4.1-10.5 [facility] pH Test strip (U)Ordered By: Nish Davidson on 03-03-2024 pH (U) 6.0 [pH] 5.0-9.0 [facility] Surgical Pathologyon 024 Surgical Pathology Normal [facility] Comment on above: Result Comment: [facility] [address] [place] [address] Surgical Pathology Consultation Patient Name:CHAI ARNOLD:1970 (Age: 53)Gender:MTaken:02/17/2024eported:02/22/2024hysician(s):Jennyfer Augustin MD ([phone])Copy To: Rec. #:[id number]: #[id number] Final Pathologic Diagnosis 1. Colon polyp 55cm: Hyperplastic polyp. 2. Colon polyp 35cm: Tubular adenoma. Report Electronically Signed Out 02/22/2024Keren Bee MD Interpretation performed at [facility], [address] [facility] [address], License number: [id number]. Clinical History Change in bowel habits. Gross Description 1. Received in formalin labeled, CATALINA, 55 cm is a mccray-richardson 0.3 cm soft tissue.. The specimen is filtered and entirely submitted in a single cassette. (1, ns, [id number], m8) SM 2. Received in formalin labeled, SAUMYAFTZ, 35 cm is a pale richardson 0.3 cm the specimen is filtered and entirely submitted in a single cassette. (1, ns, [id number], m8) slm/02/20/2024GR Specimen(s) Received 1: Colon polyp 55cm 2: Colon polyp 35cm Fee Codes(s): 1; 55843 2; 29039 Alanine aminotransferase [En zymatic activity/volume] in Serum or PlasmaOrdered By: Jennyfer Winkler on 01-29-2024 ALT [Catalytic activity/Vol] 24 U/L 7-52 [facility] Albumin [Mass/volume] in Ser um or Plasma by Bromocresol green (BCG) dye binding methoOrdered By: Jennyfer Winkler on 01-29-2024 Albumin BCG dye [Mass/Vol] 4.9 g/dL 3.5-5.7 [facility] Alkaline phosphatase [Enzyma tic activity/volume] in Serum or PlasmaOrdered By: Jennyfer Winkler on 01-29-2024 ALP [Catalytic activity/Vol] 96 U/L 34-104 [facility] Amylase [Enzymatic activity/ volume] in Serum or PlasmaOrdered By: Jennyfer Winkler on 01-29-2024 Amylase [Catalytic activity/Vol] 47 U/L 29-103 [facility] Aspartate aminotransferase [ Enzymatic activity/volume] in Serum or PlasmaOrdered By: Jennyfer Winkler on 01-29-2024 AST [Catalytic activity/Vol] 21 U/L 13-39 [facility] Basophils Auto (Bld) [#/Vol] Ordered By: Jennyfer Winkler on 01-29-2024 Basophils (Bld) [#/Vol] N/A [facility] Basophils/100 WBC Auto (Bld) Ordered By: Jennyfer Winkler on 01-29-2024 Basophils/100 WBC (Bld) N/A [facility] Bilirubin Test strip Ql (U)O rdered By: Jennyfer Winkler on 01-29-2024 Bilirubin Ql (U) Negative Negative [facility] Bilirubin.direct [Mass/volum e] in Serum or PlasmaOrdered By: Jennyfer Winkler on 01-29-2024 Bilirubin.direct [Mass/Vol] 0.10 mg/dL 0.03-0.18 [facility] Bilirubin.total [Mass/volume ] in Serum or PlasmaOrdered By: Jennyfer Winkler on 01-29-2024 Bilirubin [Mass/Vol] 0.8 mg/dL 0.3-1.0 [facility] Calcium [Mass/volume] in Ser um or PlasmaOrdered By: Jennyfer Winkler on 01-29-2024 Calcium [Mass/Vol] 10.2 mg/dL 8.6-10.3 [facility] Carbon dioxide, total [Moles /volume] in Serum or PlasmaOrdered By: Jennyfer Winkler on 01-29-2024 CO2 [Moles/Vol] 26.4 mmol/L 21.0-31.0 [facility] Chloride [Moles/volume] in S dereje or PlasmaOrdered By: Jennyfer Winkler on 01-29-2024 Chloride [Moles/Vol] 98 mmol/L 98-107 [facility] Color Auto (U)Ordered By: Ella Winkler on 01-29-2024 Color (U) Colorless Yellow [facility] Creatinine [Mass/volume] in Serum or PlasmaOrdered By: Jennyfer Winkler on 01-29-2024 Creatinine [Mass/Vol] 1.07 mg/dL 0.70-1.30 [facility] Eosinophils Auto (Bld) [#/Vo l]Ordered By: Jennyfer Winkler on 01-29-2024 Eosinophils (Bld) [#/Vol] N/A [facility] Eosinophils/100 WBC Auto (Bl d)Ordered By: Jennyfer Winkler on 01-29-2024 Eosinophils/100 WBC (Bld) N/A [facility] Eosinophils/100 WBC Manual c nt (Bld)Ordered By: Jennyfer Winkler on 01-29-2024 Eosinophils/100 WBC (Bld) 5 % High 1-3 [facility] Erythrocyte distribution wid th Auto (RBC) [Ratio]Ordered By: Jennyfer Winkler on 01-29-2024 Erythrocyte distribution width (RBC) [Ratio] 12.1 % 12.0-14.8 [facility] Giant platelets/100 leukocyt es [Ratio] in Blood by Manual countOrdered By: Jennyfer Winkler on 01-29-2024 Giant platelets/100 WBC Manual cnt (Bld) [Ratio] 1 /100{WBC} [facility] Globulin Calc (S) [Mass/Vol] Ordered By: Jennyfer Winkler on 01-29-2024 Globulin (S) [Mass/Vol] 3.1 g/dL F [facility] Glucose [Mass/volume] in Ser um or PlasmaOrdered By: Jennyfer Winkler on 01-29-2024 Glucose [Mass/Vol] 103 mg/dL High 70-100 [facility] Comment on above: ADA recommended refe rence rangeRandom Glucose Reference Range is dependent on time and content of last meal. Glucose of more than 200 mg/dL in a nonstressed, ambulatory subject supports the diagnosis of Diabetes Mellitus. Glucose [Mass/volume] in Uri ne by Test stripOrdered By: Jennyfer Winkler on 01-29-2024 Glucose Test strip (U) [Mass/Vol] Normal mg/dL Normal [facility] Hematocrit Auto (Bld) [Volum e fraction]Ordered By: Jennyfer Winkler on 01-29-2024 Hematocrit (Bld) [Volume fraction] 54.1 % High 38.8-50.0 [facility] Hemoglobin Test strip Ql (U) Ordered By: Jennyfer Winkler on 01-29-2024 Hemoglobin Ql (U) Negative Negative [facility] Hemoglobin [Mass/volume] in BloodOrdered By: Jennyfer Winkler on 01-29-2024 Hemoglobin (Bld) [Mass/Vol] 18.9 g/dL High 13.0-17.0 [facility] Ketones Test strip Ql (U)Ord ered By: Jennyfer Winkler on 01-29-2024 Ketones Ql (U) Negative Negative [facility] Leukocyte esterase [Presence ] in Urine by Test stripOrdered By: Jennyfer Winkler on 01-29-2024 Leukocyte esterase Test strip Ql (U) Negative Negative [facility] Leukocytes [#/volume] correc ernst for nucleated erythrocytes in Blood by Automated counOrdered By: Jennyfer Winkler on 01-29-2024 WBC corrected for nucl RBC Auto (Bld) [#/Vol] 6.8 10*3/uL 4.1-10.5 [facility] Lipase [Enzymatic activity/v olume] in Serum or PlasmaOrdered By: Jennyfer Winkler on 01-29-2024 Lipase [Catalytic activity/Vol] 29.0 U/L 11.0-82.0 [facility] Lymphocytes Auto (Bld) [#/Vo l]Ordered By: Jennyfer Winkler on 01-29-2024 Lymphocytes (Bld) [#/Vol] N/A [facility] Lymphocytes/100 WBC Auto (Bl d)Ordered By: Jennyfer Winkler on 01-29-2024 Lymphocytes/100 WBC (Bld) N/A [facility] Lymphocytes/100 WBC Manual c nt (Bld)Ordered By: Jennyfer Winkler on 01-29-2024 Lymphocytes/100 WBC (Bld) 28 % 18-42 [facility] MCH Auto (RBC) [Entitic mass ]Ordered By: Jennyfer Winkler on 01-29-2024 MCH (RBC) [Entitic mass] 32.4 pg 27.5-35.2 [facility] MCHC Auto (RBC) [Mass/Vol]Or dered By: Jennyfer Winkler on 01-29-2024 MCHC (RBC) [Mass/Vol] 35.0 g/dL 32.5-35.6 [facility] MCV Auto (RBC) [Entitic vol] Ordered By: Jennyfer Winkler on 01-29-2024 MCV (RBC) [Entitic vol] 92.7 fL 83.5-101 F [facility] Monocyte distribution width [Entitic volume] in Blood by AutomatedOrdered By: Jennyfer Winkler on 01-29-2024 Monocyte distribution width Auto (Bld) [Entitic vol] 18.41 % 0.00-20.00 [facility] Monocytes Auto (Bld) [#/Vol] Ordered By: Jennyfer Winkler on 01-29-2024 Monocytes (Bld) [#/Vol] N/A [facility] Monocytes/100 WBC Auto (Bld) Ordered By: Jennyfer Winkler on 01-29-2024 Monocytes/100 WBC (Bld) N/A [facility] Monocytes/100 WBC Manual cnt (Bld)Ordered By: Jennyfer Winkler on 01-29-2024 Monocytes/100 WBC (Bld) 4 % 2-11 [facility] Neutrophils Auto (Bld) [#/Vo l]Ordered By: Jennyfer Winkler on 01-29-2024 Neutrophils (Bld) [#/Vol] N/A [facility] Neutrophils/100 WBC Auto (Bl d)Ordered By: Jennyfer Winkler on 01-29-2024 Neutrophils/100 WBC (Bld) N/A [facility] Nitrite Test strip Ql (U)Ord ered By: Jennyfer Winkler on 01-29-2024 Nitrite Ql (U) Negative Negative [facility] No Panel InformationOrdered By: Jennyfer Winkler on 01-29-2024 Estimated GFR (CKD-EPI) > 60.0 mL/Min [facility] Creatinine Clearance (Chem 83.32 [facility] Nucleated erythrocytes [Pres ence] in Blood by Automated countOrdered By: Jennyfer Winkler on 01-29-2024 Nucleated RBC Auto Ql (Bld) N/A [facility] Platelet adequacy [Presence] in Blood by Light microscopyOrdered By: Jennyfer Winkler on 01-29-2024 Platelets LM Ql (Bld) Normal Normal [facility] Platelet mean volume Auto (B ld) [Entitic vol]Ordered By: Jennyfer Winkler on 01-29-2024 Platelet mean volume (Bld) [Entitic vol] 8.1 fL 6.6-10.1 [facility] Platelet morphology finding [Identifier] in BloodOrdered By: Jennyfer Winkler on 01-29-2024 Platelet morphology finding Nom (Bld) Normal Normal [facility] Platelets Auto (Bld) [#/Vol] Ordered By: Jennyfer Winkler on 01-29-2024 Platelets (Bld) [#/Vol] 245 10*3/uL 150-450 [facility] Potassium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 Refill Cisco Bonilla DO Work Phone: [facility] Start: 12-10-2024 End: 12-10-2024 ambulatory [facility] Start: 12-10-2024 Encounter for genera l adult medical examination without abnormal findings [facility] Start: 12-10-2024 End: 12-10-2024 Patient encounter status Cisco Bonilla DO Work Phone: [facility] [employer] Start: 12-10-2024 End: 12-10-2024 Periodic preventive med est patient 40-64yrs Cisco Bonilla DO Work Phone: [facility] Comment on above: Well adult exam (Marilynn lawson Dx); Anxiety; Overweight; Iron overload; Encounter for screening for malignant neoplasm of prostate; Ex-smoker; Hypogonadism in male; Severe episode of recurrent major depressive disorder, without psychotic features ([facility]); Irritable bowel syndrome with both constipation and diarrhea Start: 12-10-2024 End: 12-10-2024 ambulatory [facility] Start: 12-10-2024 Encounter for genera l adult medical examination without abnormal findings [facility] Start: 11-02-2024 End: 11-02-2024 Orders Only Cisco Bonilla DO Work Phone: [facility] Start: 10-15-2024 End: 10-15-2024 Orders Only Cisco Bonilla DO Work Phone: [facility] Start: 09-26-2024 End: 10-03-2024 Telephone encounter [facility] Work Phone: [facility] Start: 09-13-2024 End: 09-13-2024 [...] 09-12-2024 Refill Cisco Bonilla DO Work Phone: [facility] Start: 05-15-2024 End: 05-15-2024 Emergency department patient visit CISCO BONILLA [facility] Start: 04-04-2024 End: 04-10-2024 Telephone encounter Cisco Bonilla DO Work Phone: [facility] Start: 04-03-2024 End: 04-03-2024 Patient encounter procedure Didi X Orzech [facility] Start: 03-16-2024 End: 03-16-2024 Orders Only Cisco Bonilla DO Work Phone: [facility] Start: 03-15-2024 End: 03-15-2024 Office outpatient visit 25 minutes Cisco Bonilla DO Work Phone: [facility] Comment on above: Irritable bowel synd chaitanya with both constipation and diarrhea (Primary Dx); Umbilical hernia without obstruction and without gangrene; Incisional hernia, without obstruction or gangrene; Anal fissure Start: 03-15-2024 End: 03-15-2024 ambulatory CISCOCHELSEA BONILLA [facility] Start: 03-14-2024 End: 03-14-2024 Orders Only Cisco Bonilla DO Work Phone: [facility] Start: 03-03-2024 End: 03-03-2024 Emergency department patient visit DO Cisco Bonilla Work Phone: [facility] Work Phone: Start: 02-20-2024 End: 02-20-2024 Orders Only Cisco Bonilla DO Work Phone: [facility] Start: 02-17-2024 End: 02-18-2024 Evaluation and management of inpatient JENNYFER AUGUSTIN [facility] Start: 02-13-2024 End: 02-15-2024 Telephone encounter Jennyfer Augustin DO Work Phone: [facility] Start: 02-05-2024 End: 02-05-2024 Orders Only Cisco Bonilla DO Work Phone: [facility] Comment on above: Change in bowel habi ts (Primary Dx); Polyp of colon, unspecified part of colon, unspecified type Start: 02-02-2024 End: 02-02-2024 Patient encounter procedure Didi X Orzech [facility] Start: 01-31-2024 End: 02-01-2024 Telephone encounter Barbara De La Torre CMA [facility] Start: 01-29-2024 End: 01-30-2024 Emergency department patient visit DO Cisco Carrillong Work Phone: [facility] Work Phone: Start: 12-09-2023 End: 12-09-2023 Office outpatient visit 15 minutes Michelle Francis [facility] Work Phone: [facility] Comment on above: Irritable bowel synd chaitanya with constipation (Primary Dx); Gastroesophageal reflux disease, unspecified whether esophagitis present; 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 ([facility]) Start: 03-26-2022 End: 03-26-[address] CISCO BONILLA Facility: Start: 09-01-2021 End: 09-01-2021 ambulatory Tawnya Andre Other [facility] Other Start: 09-01-2021 Office outpatient vi sit 15 minutes Tawnya Andre [facility] Start: 08-11-2021 End: 08-11-2021 ambulatory Mary King Other [facility] Other Start: 08-11-2021 Office outpatient vi sit 15 minutes Mary King [facility] Start: 08-30-2016 End: 08-31-2016 Ambulatory GRADY DHALIWAL Facility:[facility] Procedures Date Procedure Procedure Detail Performing Clinician Start: 03-19-2025 Open reduction of fr acture with internal fixation Cisco Carcamolong DO Work Phone: Start: 03-19-2025 X-ray of right foot Den nis Furlong DO Work Phone: Start: 03-13-2025 X-ray of right foot Den nis Furlong DO Work Phone: Start: 02-28-2025 ADULT [facility] Violette Maurer [employer] Work Phone: Start: 12-10-2024 Adult depression scr eening assessment Cisco Bonilla DO Work Phone: Start: 12-10-2024 Lipid 1996 panel - S dereje or Plasma Sahil Bergeron RN Start: 03-15-2024 Follow-up visit Follow-up CISCO BONILLA Start: 03-15-2024 Adult depression scr eening assessment Cisco Bonilla DO Work Phone: Start: 03-03-2024 Diagnostic radiograp hy of abdomen DO Cisco Bonilla Work Phone: Start: 02-17-2024 Colonoscopy Cisco tang DO Work Phone: Start: 01-29-2024 CT of abdomen and pe lvis without contrast DO Cisco Bonilla Work Phone: Start: 12-09-2023 Adult depression scr eening assessment Michelle Francis [employer] Work Phone: Appendectomy [facility] Colonoscopy [facility] Plan of Treatment Date Care Activity Detail Author Start: 02-16-2034 Screening for malign ant neoplasm of colon Colonoscopy [facility] Start: 12-10-2029 Lipid panel Lipid Screening [facility] Start: 12-10-2029 Prostate specific antigen measurement Prostate Cancer Screening Discussion [facility] Start: 12-11-2027 Diabetes Screening Diabetes Screenin g [facility] Start: 12-10-2025 Administration of varicella zoster vaccine Zoster (Shingles) Vaccine (1 of 2) [facility] Comment on above: Postponed from 09/04 (Patient Refused) Start: 12-10-2025 Adult BMI Screening Adult BMI Screen ing [facility] Start: 12-10-2025 COVID-19 Vaccine ( season) COVID-19 Vaccine () [facility] Comment on above: Postponed from 04/22 (Patient Refused) Start: 12-10-2025 Depression Screening Depression Scre ening [facility] Start: 12-10-2025 Tobacco Screening Tobacco Screening [facility] Start: 09-11-2025 Adult BMI Screening Adult BMI Screen ing [facility] Start: 09-11-2025 Tobacco Screening Tobacco Screening [facility] Start: 04-22-2025 Influenza vaccination P [facility] Start: 04-02-2025 End: 04-02-2025 Admission to same day surgery center 04/02/2025 11:[address] [facility] Colorectal Surgery [address] [id number] Lydia Drake PA-C [address] [place] [address] f/u Colorectal Surgery Comment on above: f/u Start: 03-28-2025 End: 03-28-2025 Patient encounter procedure 03/28/2025 1:30 PM EDT OT/PT/Speech Visit [facility] [id number] [id number] Belkys Smith, PT, DPT tightness in my rectum, anus i cant push out poop [facility] Comment on above: tightness in my rect um, anus i cant push out poop Start: 03-19-2025 [facility] Start: 03-19-2025 X-ray of right foot [facility] Start: 03-19-2025 XR Foot - right 2 Views [facility] Start: 03-18-2025 [facility] Start: 03-15-2025 End: 03-15-2025 Admission to same day surgery center 03/15/2025 4:[address] [facility] Colorectal Surgery [address] [address] George Navarrete DO [address] [place] [address] [facility] Colorectal Surgery Comment on above: [facility] Start: 03-15-2025 Adult BMI Screening Adult BMI Screen ing [facility] Start: 03-15-2025 Depression Screening Depression Scre ening [facility] Start: 03-15-2025 Tobacco Screening Tobacco Screening [facility] Start: 03-13-2025 X-ray of right foot XR foot RT min 3 V* [facility] Start: 03-13-2025 XR Foot - right GE 3 Views [facility] Start: 02-21-2025 End: 02-21-2025 Patient encounter procedure 02/21/2025 10:30 AM EDT Office Visit General Surgery [address] [address] Jey Kapadia MD [address] [place] [address] Consult Botox Injection General Surgery Comment on above: Consult Botox Inject ion Start: 02-16-2025 Adult BMI Screening Adult BMI Screen ing [facility] Start: 02-16-2025 Screening for malign ant neoplasm of colon [facility] Start: 02-16-2025 Tobacco Screening Tobacco Screening [facility] Start: 02-05-2025 Tobacco Screening Tobacco Screening [facility] Start: 12-10-2024 End: 12-10-2025 CT Chest for screening WO contrast CT low dose lung screening (Annual) Imaging Routine Ex-smoker Expected: 12/10/2024, Expires: 12/10/2025 [facility] Comment on above: Expected: 12/10/2024 , Expires: 12/10/2025 Start: 12-10-2024 End: 12-10-2024 Patient encounter procedure 12/10/2024 1:00 PM EDT [facility] [address] [place] [address] Cisco Bonilla DO [address], [place] [address] [facility] Start: 12-08-2024 Adult BMI Screening Adult BMI Screen ing [facility] Start: 12-08-2024 Depression Screening Depression Scre ening [facility] Start: 12-08-2024 Tobacco Screening Tobacco Screening [facility] Start: 09-26-2024 End: 09-26-2024 Patient encounter procedure 09/26/2024 2:00 PM EST Office Visit [facility] [address] [place] [address] Aníbal Will, DO [address] [place] [address] [facility] Start: 06-04-2024 End: 06-04-2024 Patient encounter procedure 06/04/2024 2:15 PM EDT Office Visit [facility] [address] [place] [address] Cisco Bonilla DO [address] [place] [address] [facility] Start: 04-22-2024 Covid-19 Vaccine ( season) Covid-19 Vaccine ( season) [facility] Start: 04-22-2024 COVID-19 Vaccine ( season) COVID-19 Vaccine ( season) [facility] Start: 04-22-2024 Influenza vaccination Influenza Vacc ine [facility] Start: 03-15-2024 End: 03-15-2024 Patient encounter procedure 03/15/2024 3:45 PM EDT Office Visit [facility] [address] [place] [address] Cisco Bonilla DO [address] [place] [address] [facility] Start: 02-18-2024 Adult BMI Screening Adult BMI Screen ing [facility] Start: 02-18-2024 Depression Screening Depression Scre ening [facility] Start: 02-18-2024 Tobacco Screening Tobacco Screening [facility] Start: 02-17-2024 End: 02-17-2024 Admission to same day surgery center 02/17/2024 2:30 PM EDT - 02/17/2024 3:30 PM EDT Surgery [facility] [address] [place] [id number] Jennyfer Augustin, DO [address] [place] [address] COLONOSCOPY DIAGNOSTIC / SCREENING [49829 (CPT )] [facility] Comment on above: COLONOSCOPY DIAGNOST IC / SCREENING [68563 (CPT )] Start: 02-17-2024 End: 02-17-2024 Colonoscopy flx dx w/collj spec when pfrmd COLONOSCOPY DIAGNOSTIC / SCREENING change in bowel habits 02/17/2024 2:30 PM EDT [facility] Start: 02-17-2024 Subsequent hospital visit by physician 02/17/2024 2:30 PM EDT Hospital Encounter [facility] [address] [place] [id number] Jennyfer Augustin, DO [address] [place] [address] Change in bowel habits (Primary Dx) [facility] Comment on above: Change in bowel habi ts (Primary Dx) Start: 02-16-2024 End: 02-16-2024 ambulatory 02/16/2024 3:50 PM EDT Support Visit [facility] - Pre Admit [address] [place] [id number] [facility] Start: 01-29-2024 CT Abdomen and Pelvi s WO contrast [facility] Start: 01-29-2024 CT of abdomen and pe lvis without contrast CT abdomen pelvis wo con [facility] Start: 10-28-2023 DTaP,Tdap and Td Vaccines (2 - Td or Tdap) DTaP,Tdap and Td Vaccines (2 - Td or Tdap) [facility] Start: 10-28-2023 Urine microalbumin profile DTaP,Tdap,Td Vaccine (2 - Td or Tdap) [facility] Start: 04-22-2023 COVID-19 Vaccine ( season) COVID-19 Vaccine ( season) [facility] Start: 2018 Administration of varicella zoster vaccine Zoster (Shingles) Vaccine (1 of 2) [facility] Start: 2018 Pneumococcal Vaccine : 50+ (1 of 1 - PCV) Pneumococcal Vaccine: 50+ (1 of 1 - PCV) [facility] Start: 2018 Shingrix Vaccine (1 of 2) Shingrix Vaccine (1 of 2) [facility] Start: 2013 Diabetes Screening Diabetes Screenin g [facility] Start: 2013 Prostate specific antigen measurement Prostate Cancer Screening Discussion [facility] Start: 2013 Screening for malign ant neoplasm of colon [facility] Start: 2003 Lipid panel Lipid Screening [facility] Start: 1987 Hepatitis B Vaccine (1 of 3 - 19+ 3-dose series) Hepatitis B Vaccine (1 of 3 - 19+ 3-dose series) [facility] Start: 1987 Pneumococcal Vaccine : 50+ (1 of 2 - PCV) Pneumococcal Vaccine: 50+ (1 of 2 - PCV) [facility] Start: 1987 Shingrix Vaccine (1 of 2) Shingrix Vaccine (1 of 2) [facility] Start: 1987 Urine microalbumin profile DTaP,Tdap,Td Vaccine (1 - Tdap) [facility] Start: 1986 Adult BMI Follow Up Plan Adult BMI Follow Up Plan [facility] Start: 1986 Anxiety Screening Anxiety Screening [facility] Start: 1986 Depression Screening Depression Scre ening [facility] Start: 1986 Hepatitis C screening Hepatitis C Sc juan josé [facility] Start: 1986 HIV screening HIV Screening [facility] End: 09-11-2025 CBC panel - Blood by Automated count CBC Lab Routine Irritable bowel syndrome with both constipation and diarrhea Essential hypertension, benign 1 Occurrences starting 09/11/2024 until 09/11/2025 [facility] Comment on above: 1 Occurrences starti ng 09/11/2024 until 09/11/2025 End: 12-10-2025 CBC panel - Blood by Automated count CBC without diff Lab Routine Hypogonadism in male 1 Occurrences starting 12/10/2024 until 12/10/2025 [facility] Comment on above: 1 Occurrences starti ng 12/10/2024 until 12/10/2025 End: 02-04-2025 Colonoscopy Colonoscopy GI Routine Change in bowel habits Polyp of colon, unspecified part of colon, unspecified type 1 Occurrences starting 02/05/2024 until 02/04/2025 [facility] Work Phone: Comment on above: 1 Occurrences starti ng 02/05/2024 until 02/04/2025 Colonoscopy flx dx w/collj spec when pfrmd COLONOSCOPY DIAGNOSTIC / SCREENING Change in bowel habits [facility] End: 09-11-2025 Comprehensive metabolic 2000 panel - Serum or Plasma Comprehensive metabolic panel Lab Routine Essential hypertension, benign 1 Occurrences starting 09/11/2024 until 09/11/2025 [facility] Comment on above: 1 Occurrences starti ng 09/11/2024 until 09/11/2025 End: 12-10-2025 Comprehensive metabolic 2000 panel - Serum or Plasma Comprehensive metabolic panel Lab Routine Well adult exam 1 Occurrences starting 12/10/2024 until 12/10/2025 [employer] Work Phone: Comment on above: 1 Occurrences starti ng 12/10/2024 until 12/10/2025 End: 12-10-2025 Iron [Mass/volume] in Serum or Plasma Iron level Lab Routine Iron overload 1 Occurrences starting 12/10/2024 until 12/10/2025 [facility] Comment on above: 1 Occurrences starti ng 12/10/2024 until 12/10/2025 End: 12-10-2025 Lipid 1996 panel - Serum or Plasma Lipid profile Lab Routine Well adult exam 1 Occurrences starting 12/10/2024 until 12/10/2025 [facility] Comment on above: 1 Occurrences starti ng 12/10/2024 until 12/10/2025 Patient Education [facility] Work Phone: Patient referral [facility] Work Phone: End: 09-11-2025 Prostatic specific antigen screen Prostatic specific antigen screen Lab Routine Encounter for screening for malignant neoplasm of prostate 1 Occurrences starting 09/11/2024 until 09/11/2025 [facility] Comment on above: 1 Occurrences starti ng 09/11/2024 until 09/11/2025 End: 12-10-2025 Prostatic specific antigen screen Prostatic specific antigen screen Lab Routine Encounter for screening for malignant neoplasm of prostate 1 Occurrences starting 12/10/2024 until 12/10/2025 [facility] Comment on above: 1 Occurrences starti ng 12/10/2024 until 12/10/2025 End: 09-11-2025 TSH with Reflex TSH with Reflex Lab Routine Irritable bowel syndrome with both constipation and diarrhea Essential hypertension, benign Anxiety 1 Occurrences starting 09/11/2024 until 09/11/2025 [employer] Work Phone: Comment on above: 1 Occurrences starti ng 09/11/2024 until 09/11/2025 End: 12-10-2025 TSH with Reflex TSH with Reflex Lab Routine Anxiety Overweight 1 Occurrences starting 12/10/2024 until 12/10/2025 [facility] Comment on above: 1 Occurrences starti ng 12/10/2024 until 12/10/2025 XR Foot - right GE 3 Views [facility] Immunizations Immunization Date Immunization Notes Care Provider Fa cili 06-20-2021 influenza virus vaccine, unspecified formulation Michelle Francis [employer] Work Phone: [facility] 06-20-2021 influenza, injectabl e, quadrivalent, preservative free Michelle Francis [employer] Work Phone: [facility] 06-20-2021 SARS-CoV-2 (COVID-19 ) mRNA BNT-162b2 vax Didi Orzech [facility] 12-08-2020 SARS-CoV-2 (COVID-19 ) mRNA BNT-162b2 vax Didi Orzech [facility] 11-18-2020 SARS-CoV-2 (COVID-19 ) mRNA BNT-162b2 vax Didi Orzech [facility] 04-06-2020 influenza virus vaccine, unspecified formulation Didi Orzech [facility] 04-06-2020 influenza, injectabl e, quadrivalent, preservative free Michelle Tito [employer] Work Phone: [facility] 06-07-2019 influenza virus vaccine, unspecified formulation Didi Orzech [facility] 06-07-2019 influenza, injectabl e, quadrivalent, preservative free Michelle Tito [employer] Work Phone: [facility] 10-27-2013 tetanus toxoid, redu brock diphtheria toxoid, and acellular pertussis vaccine, adsorbed Michelle Tito [employer] Work Phone: [facility] Payers Date Payer Category Payer Self-pay [id number] 2024 Medicaid [id number] 2024 Medicaid [id number] 1968 Unknown [id number] 1968 Unknown [id number] [id number] 1968 Unknown [id number] [id number] 1968 Unknown [id number] [id number] 1968 Unknown [id number] [id number] 1968 Unknown [id number] 2.16.840.1.468704.3.579.2.1285 1968 Unknown [id number] 2.16.840.1.104769.3.579.2.1285 1968 Unknown [id number] 2.16.840.1.931913.3.579.2.1285 1968 Unknown [id number] 2.16.840.1.046039.3.579.2.1285 1968 Unknown [id number] 2.16.840.1.307389.3.579.2.7 1968 Unknown [id number] 2.16.840.1.217657.3.579.2. 1968 Unknown [id number] [id number] 1959 Private Health Insurance [id number] Medicaid [id number] Unknown [id number] 2.1 [id number] Unknown [place] [id number] Unknown [id number] [id number] Unknown [id number] [id number] Unknown [id number] Social History Date Type Detail Facility Unknown if ever smoked [facility] Other Start: 09-11-2024 End: 02-28-2025 Sex Assigned At [facility] Start: 07-23-1985 End: 03-03-2024 Tobacco smoking status NHIS Smoker (finding) [facility] Start: 1970 Sex Assigned At Male [facility] Start: 02-02-2024 End: 01-24-2025 Tobacco smoking status Ex-smoker (finding) [facility] Start: 11-11-2015 Tobacco smoking status Never [facility] Start: 07-23-1985 End: 12-20-2018 History of tobacco use Cigarette Smoker [facility] Start: 12-09-2023 End: 02-28-2025 Cigarettes smoked current (pack per day) - Reported 1 [facility] History of tobacco use Passive smoker [facility] Start: 12-09-2023 Tobacco use and exposure Smokeless tobacco non-user [facility] Start: 09-11-2024 End: 12-10-2024 Alcoholic beverage intake Current drinker of alcohol (finding) [facility] Has the [employer], [employer], or water [employer] threatened to shut off services in your home in past 12Mo Yes [facility] Are you now , , , , never or living with a partner? Never [facility] How often to you hav e a drink containing alcohol? Monthly or less [facility] How often do you hav e 6 or more drinks on 1 occasion? Less than monthly [facility] How hard is it for y ou to pay for the very basics like food, housing, medical care, and heating Very hard [facility] Do you feel stress - tense, restless, nervous, or anxious, or unable to sleep at night because your mind is troubled all the time - these days [OSQ] Very much [facility] Start: 08-01-2022 Education 14 [facility] Start: 08-04-2022 Tobacco Comment vape, today [facility] Start: 10-12-2019 Alcohol Comment Occasional [facility] Start: 1970 Sex assigned at Not on file [facility] Start: 03-27-2015 Sex Male (finding) [facility] How many standard drinks containing alcohol do you have on a typical day? 10 or more [facility] Sexual Orientation [facility] Tobacco smoking stat us [facility] Tobacco smoking consumption unknown [facility] Start: 03-03-2024 End: 03-19-2025 Tobacco smoking status TXIS Smokes tobacco daily (finding) [facility] Start: 03-07-2025 Gender identity Identifies as male gender (finding) [facility] Start: 03-07-2025 Sexual orientation Heterosexual (finding) [facility] Medical Equipment Procedure Code Equipment Code Equipment Origin al Text Equipment Identifier Dates ORIF, fracture, wrist Orthopaedic bone screw (non-sliding) ()[id number] [facility] Start: 03-19-2025 Goals Date Patient Goal Desired Activity /State Personal health goal Comment on above: Formatting of this n ote might be different from the original. Evaluation of progress towards goal: with support from friends and family, patient needs to fllow up with [facility] Functional Status Date Assessment Result Facility 01-09-2025 Functional Status N/A [facility] 02-02-2024 Functional Status N/A [facility] Clinical Notes 08-11-2021 to 04-03-2025 Lydia Drake PA-C - 04/03/2025 8:29 AM Lydia Watkins PA-C - 04/02/2025 11:30 AM EDTTelephone Encounter - Lydia Drake PA-C - 03/07/2025 1:37 PM EDTPatient Instructions Note Date & Type Note Facility 04-03-2025 Note HNO ID: [id number] Author: LYDIA DRAKE PA-C Service: ? Author Type: Physician City Secretary Type: Progress Notes Filed: 04/03/2025 08:41 Note [...] Anticipated surgical procedure: none Lydia Drake PA-C [facility] 04-03-2025 History of Presen t [...] Lydia Drake PA-C documented in this encounter [facility] 04-02-2025 History of Presen t illness Narrative COLORECTAL SURGERY VIRTUAL VISIT FOLLOW UP 04/02/2025 I have communicated my name and active licensure. The patient's identity and physical location were verified at the time of this visit. Either the patient or their legal security representative has been informed of the risks [...] February 28, 2025. He was referred to [facility] for anorectal manometry by Dr. Brady [...] laxatives and stool softeners; consider referral to [facility] if unable to see local GI anymore ( was told that [facility] would be managing him [...] evaluate and manage orthostatic symptoms. Recording using [employer] software for draft documentation of the visit was discussed with the patient/authorized security representative; all questions welcomed and answered. Patient/authorized security representative agreed to proceed JAME Segundo I spent a total of 33 minutes on the date of the service which included preparing to see the patient, [id number] patient care, completing clinical documentation, obtaining and/or reviewing separately obtained history, performing a medically appropriate examination, counseling and educating the patient/family/caregiver, communicating with other HCPs (not separately reported), and care coordination (not separately reported). documented in this encounter [facility] 04-02-2025 Note HNO ID: [id number] Author: LYDIA DRAKE PA-C Service: ? Author Type: Physician City Secretary Type: Progress Notes Filed: 04/02/2025 12:17 Note Text: COLOR[facility]AL SURGERY VIRTUAL VISIT FOLLOW UP 04/02/2025 I have communicated my name and active licensure. The patient's identity and physical location were verified at the time of this visit. Either the patient or their legal security representative has been informed of the risks [...] February 28, 2025. He was referred to [facility] for anorectal manometry by Dr. Brady [...] trials of Trulanc (more content not included)... [facility] 03-07-2025 Telephone encounter Note Called [...] ED with worsening sx. Lydia Drake PA-C [facility] 03-07-2025 Miscellaneous Notes Called patient back. He [...] with worsening sx. Lydia Drake PA-C Chai Samuel [phone] Patient contacted the office regarding the baclofen that was prescribed to him. He reported that his back is feeling tighter than before and believes that a taking all these different medications may be causing this side effect. Unsure on what he should do. documented in this encounter [facility] 03-07-2025 Telephone encounter Note Chai Samuel [phone] Patient contacted the office regarding the baclofen that was prescribed to him. He reported that his back is feeling tighter than before and believes that a taking all these different medications may be causing this side effect. Unsure on what he should do. [facility] 02-28-2025 Instructions Lydia Drake PA-C - 02/28/2025 1:31 PM EDT We discussed your chronic constipation and pelvic floor dysfunction: - I recommend starting baclofen suppositories, a muscle relaxer, to help with spasms and pain. Use one suppository as needed, up to twice daily. This prescription has been sent to [facility] in [place]. - Begin pelvic floor physical therapy to [...] for you. To make an appointment through [facility] call : [phone] If you are not close to a [facility] location, you can visit any one of these sites. Just put your zip code in and Pelvic Floor Physical Therapy places near you will populate. - [email or web address] - [email or web address] - [email or web address] - [email or web address] documented in this encounter [facility] 02-28-2025 History and physical note PELVIC FLOOR [...] a compounded preparation from a pharmacy in [place], and previously used hydrocortisone. He has not [...] Weak - Relaxation on pushing: Minimal - Continuous Mining Operator Present: Yes Continuous Mining Operator present: Yes, Arabella Assessment Anorectal Physiology tests [...] which included preparing to see the patient, [id number] patient care, completing clinical documentation, obtaining and/or reviewing separately obtained history, performing a medically appropriate examination, counseling and educating the patient/family/caregiver, ordering medications, tests, or procedures, communicating with other HCPs (not separately reported), independently interpreting results (not separately reported), and communicating results to the patient/family/caregiver. Recording using ActionIQ software for draft documentation of the visit was discussed with the patient/authorized security representative; all questions welcomed and answered. Patient/authorized security representative agreed to proceed [facility] 02-28-2025 History and physical note PELVIC FLOOR [...] a compounded preparation from a pharmacy in [place], and previously used hydrocortisone. He has not [...] Weak - Relaxation on pushing: Minimal - Continuous Mining Operator Present: Yes Continuous Mining Operator present: Yes, Arabella Assessment Anorectal Physiology tests [...] which included preparing to see the patient, [id number] patient care, completing clinical documentation, obtaining and/or reviewing separately obtained history, performing a medically appropriate examination, counseling and educating the patient/family/caregiver, ordering medications, tests, or procedures, communicating with other HCPs (not separately reported), independently interpreting results (not separately reported), and communicating results to the patient/family/caregiver. Recording using ActionIQ software for draft documentation of the visit was discussed with the patient/authorized security representative; all questions welcomed and answered. Patient/authorized security representative agreed to proceed documented in this encounter [facility] 02-18-2025 Evaluation note Diagnosis Onset Date Resolution Fracture of fifth metatarsal bone of right foot acute February 18, 2025 1:30pm Fracture of fifth metatarsal bone of right foot acute March 13, 2025 3:11pm [facility] Work Phone: 1(753) 394-895506-30-2025 Evaluation note* Diagnosis Onset Date Resolution Status Admit Date Fracture of fifth metatarsal bone of right foot acute February 18 1:30pm Fracture of fifth metatarsal bone of right foot acute March 13 3:11pm Fracture of fifth metatarsal bone of right foot acute April 08, 2025 9:12am Other specified postprocedur al states noneactive April 08 9:12am [facility] Work Phone: [phone]) 932-222706-23-2025 Telephone encounter Note* Telephone Encounter - Chelle Christianson - 02/11/2025 9:38 AM EDT Recevied referral from [facility] fot pt referral for botox injections [facility]06-23-2025 Miscellaneous Notes* Telephone Encounter - Chelle Christianson - 02/11/2025 9:38 AM EDT Recevied referral from [facility] fot pt referral for botox injections [facility] Miscellaneous Notes* Telephone Encounter - Linda Marc CMA - 12/31/2024 9:34 AM EDT I called and left message for pt to call back. Regarding his referral to Gastroenterology. George Alcaraz is retired. * Telephone Encounter - Barbara De La Torre CMA - 12/31/2024 9:34 AM EDT Can we send referral to Dr. Moreno in [place] [facility] Telephone encounter Note* Telephone Encounter - Linda Marc CMA - 12/31/2024 9:34 AM EDT I called and left message for pt to call back. Regarding his referral to Gastroenterology. George Alcaraz is retired. [facility]05-12-2025 Telephone encounter Note* Telephone Encounter - Barbara De La Torre CMA - 12/31/2024 9:34 AM EDT Can we send referral to Dr. Moreno in [place] [facility]04-28-2025 Miscellaneous Notes* Telephone Encounter - Barbara De La Torre CMA - 12/17/2024 3:24 PM EDT Patient called and stated he missed his apt in [place] with jaylyn/ent so they will not see him anymore. Can you refer him to someone else. * Telephone Encounter - Cisco Bonilla DO - 12/17/2024 3:24 PM EDT Okay. I sent another referral this time to a sed middle school teacher in [place] -Dr. Alcaraz. If he can not make [...] usually routine to do. documented in [facility]04-[facility]-2025 Telephone encounter Note* Telephone Encounter - Barbara De La Torre CMA - 12/17/2024 3:24 PM EDT Patient called and stated he missed his apt in [place] with jaylyn/ent so they will not see him anymore. Can you refer him to someone else. [facility]04-28-2025 Telephone encounter Note* Telephone Encounter - Cisco Bonilla DO - 12/17/2024 3:24 PM EDT Okay. I sent another referral this time to a sed middle school teacher in [place] -Dr. Alcaraz. If he can not make [...] is usually routine to do. [facility]04-21-2025 History of Present illness Narrative* Cisco Bonilla DO - 12/10/2024 1:00 PM EDT Subjective Patient ID: Chai Arnold is a 54 y.o. male. Cahi presents today for his annual wellness. He [...] reveal any inflammatory bowel disease. Thegastroenterologist in [place] did not want to see him. He [...] appear clear Nose: Nose normal. Mouth/Throat: Lips: [place]. Mouth: Mucous membranes are moist. Dentition: Abnormal [...] and irritable bowel syndrome. documented in this [facility] History of Present illness Narrative* Cisoc Bonilla DO - 11/02/2024 1:58 PM EDT FORM FOR CLOTH CHECKER FILLED OUT documented in this encounterK[facility]02-[facility]-2025 Miscellaneous Notes* Telephone Encounter - Marisa Reinoso - 09/26/2024 2:19 PM EST New Patient NS 09/26/2024 * Telephone Encounter - Suki Islas RN - 09/26/2024 2:19 PM EST Discharge entered documented in this encounterK[facility]02-[facility]-2025 Telephone encounter Note* Telephone Encounter - Marisa Reinoso - 09/26/2024 2:19 PM EST New Patient NS 09/26/2024 [facility]02-05-2025 Telephone encounter Note* Telephone Encounter - Suik Islas RN - 09/26/2024 2:19 PM EST Discharge entered [facility]01-22-2025 Miscellaneous Notes* Telephone Encounter - Betty Wild - 09/12/2024 2:21 PM EST Alok nj is refusing to see him since Dr augustin did his colonoscopy. He wants him to see patrizia as a specialist instead. Dittantione augustin started it that is who he needs to follow up with explained to diys office that he does not specialize in that field that he is a primary care and theysaid that it does not matter Héctor will not see him. Can we please get him a referral to a different gastro. Also Alok Nurse Danuta was rude and getting an [...] Send a referral to GI specialist at [facility] documented in this encounterK[facility]01-22-2025 Telephone encounter Note* Telephone Encounter - Betty Wild - 09/12/2024 2:21 PM EST [facility] office is refusing to see him since Dr augustin did his colonoscopy. He wants him to see patrizia as a specialist instead. Alok augustin started it that is who he needs to follow up with explained to dittys office that he does not specialize in that field that he is a primary care and theysaid that it does not matter Héctor will not see him. Can we please get him a referral to a different gastro. Also Alok Tipton was rude and getting an attitude when I was explaining that yuhasis not taking new patients and that is why we referred him to a specialist [facility] iPayment [id number] Telephone encounter Note* Telephone Encounter - Betty Wild - 09/12/2024 2:21 PM EST Can we get this as an urgent referral [facility] iPayment [id number] Telephone encounter Note* Telephone Encounter - Cisco Bonilla DO - 09/12/2024 2:21 PM EST Send a referral to GI specialist at [facility] iPayment [id number] Miscellaneous Notes* Telephone Encounter - Bettygeorge Wild - 09/12/2024 1:47 PM EST Patient called, metamucil is not covered by insurance but they will cover benifiber 240g [facility] [place] documented in this encounterK[facility]01-22-2025 Telephone encounter Note* Telephone Encounter - Betty Wild - 09/12/2024 1:47 PM EST Patient called, metamucil is not covered by insurance but they will cover benifiber 240g [facility] [place] [facility] [id number] History of Present illness Narrative* Cisco Bonilla DO - 09/11/2024 2:15 PM EST Subjective Patient ID: Chai Arnold is a [...] have an appointment coming up with a sed middle school teacher in September. He had to cancel his last appointment because he was having diarrhea and was afraid to leave the house because he might have an accident. The ER did give him Bentyl which did help. He did not think that less than helped at all. He stopped the FiberCon because it was not helping. He would rather have Metamucil. He called the sed middle school teacher office and they suggested a cleaned out. [...] Exam Vitals reviewed. Exam conducted with a security researcher present (Leilani Han MS 3). Constitutional: General: [...] mouth in the morning. documented in this encounterK[facility]08-14-2024 Miscellaneous Notes* Telephone Encounter - Betty Wild - 04/04/2024 10:24 AM EDT ----- Message from Dr. Cisco Bonilla DO sent at 03/15/2024 7:03 PM EDT ----- Regarding: GI/BP recheck Please set up * Telephone Encounter - Betty Wild - 04/04/2024 10:24 AM EDT Mailbox full * Telephone Encounter - Betty Wild - 04/04/2024 10:24 AM EDT Scheduled documented in this encounterK[facility]08-14-2024 Telephone encounter Note* Telephone Encounter - Betty Wild - 04/04/2024 10:24 AM EDT ----- Message from Dr. Cisco Bonilla DO sent at 03/15/2024 7:03 PM EDT ----- Regarding: GI/BP recheck Please set up [facility]08-14-2024 Telephone encounter Note* Telephone Encounter - Betty Saldanagstock - 04/04/2024 10:24 AM EDT Mailbox full [facility]08-14-2024 Telephone encounter Note* Telephone Encounter - Betty Leseliseokaterine - 04/04/2024 10:24 AM EDT Scheduled [facility]07-25-20[facility] History of Present illness Narrative* Cisco Bonilla, DO - 03/15/2024 3:45 PM EDT Subjective [...] was getting liquidy stools-6 and 7 on [place] stool scale. He used fiber supplement in [...] mostly liquidy now. He has been to [facility] 3 times. He was given something for [...] needed for pain (cramping). documented in this encounterK[facility]06-24-2024 Miscellaneous Notes* Telephone Encounter - Betty iWld - 02/13/2024 12:02 PM EDT Patient said [...] GoLYTELY sent to pharmacy documented in this encounterK[facility]06-24-2024 Telephone encounter Note* Telephone Encounter - Betty Wild - 02/13/2024 12:02 PM EDT Patient said susame is 130 dollars, is there something else he can try or a coupon to use [facility]06-24-2024 Telephone encounter Note* Telephone Encounter - Linda Marc CMA - 02/13/2024 12:02 PM EDT Pt has medicaid My Bad Please SEND in the SUPREP. . [facility]06-24-2024 Telephone encounter Note* Telephone Encounter - Jennyfer Augustin DO - 02/13/2024 12:02 PM EDT Message noted. The only prep that is covered is the old fashioned Golytely prep [facility]06-24-2024 Telephone encounter Note* Telephone Encounter - Gloria Rodriguez CMA - 02/13/2024 12:02 PM EDT He is Medicaid so whatever his insurance covers [facility]06-24-2024 Telephone encounter Note* Telephone Encounter - Jennyfer Augustin DO - 02/13/2024 12:02 PM EDT Message noted. Rx for GoLYTELY sent to pharmacy [facility]06-11-2024 Miscellaneous Notes* Telephone Encounter - Barbara De [...] EDT Left message via documented in this encounterK[facility]06-11-2024 Telephone encounter Note* Telephone Encounter - Barbara De La Torre CMA - 01/31/2024 3:09 PM EDT Patient called and was in the ER for Urinary re tension. His bowel movements ar still not good. Since I can not get him in for an ER follow up soon what do you suggest he do? He does see urology on [facility]06-11-2024 Telephone encounter Note* Telephone Encounter - Cisco Bonilla DO - 01/31/2024 3:09 PM EDT He can use MiraLax 17 g in 8 oz of water daily [facility]06-11-2024 Telephone encounter Note* Telephone Encounter - Barbara De La Torre CMA - 01/31/2024 3:09 PM EDT Left message via [facility]04-19-2024 History of Present illness Narrative* SYLVESTER Levin - 12/09/2023 9:00 AM EDT [address] [facility] [id number] Patient: Chai Arnold Date of : 1970 [...] softeners pencilthin like a 4. On the Hamden stool scale and he has tried Metamucil and MiraLax. He denies any hemorrhoids or blood in his stool. His last colonoscopy was 4 years ago that showed polyps and diverticulosis and he knows he is due for another colonoscopy next year. Patient has been struggling with weaning off his Xanax. 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 Resources such as Sub[facility] Clinic in [place] were given. It was also recommended that he apply at [facility] for primary care services and psychiatric [...] LEVIN APRN-CNP 12/09/23 1230 documented in this encounterWVUMedicine Barnesville HospitalWound Care Technologies [facility]-[id number] Evaluation note* Encounter Date Diagnosis Assessment Notes [...] Patient care instructions given in writting by [facility] At Home document. [facility] Other 12-21-2021 Evaluation note* Encounter Date Diagnosis [...] Patient care instructions given in writting by [facility] Home document. [facility] Other Evaluation + Plan note Future Appointments Appointment Date:04/03/2024 01:00:00 PM Scheduled Provider:JOSEPH Allen APRN, Didi Martin Location:[facility] Appointment Type:URO Office Visit [facility] [place] Evaluation + Plan note Future Appointments Appointment Date:04/11/2025 10:45:00 AM Scheduled Provider:Vivian Brady MD Location:[facility] evaluation noteNo assessment information available [facility] Work Phone: evaluation note* Diagnosis Irritable bowel syndrome with both constipation and diarrhea- Primary Essential hypertension, benign Anxiety Anxiety state, unspecified Encounter for screening for malignant neoplasm of prostate documented in this encounter [facility]* Diagnosis Irritable bowel syndrome with both constipation and diarrhea- Primary documented in this encounter [facility]* Diagnosis Irritable bowel syndrome with constipation- Primary Irritable bowel syndrome Gastroesophageal reflux disease, unspecified whether esophagitis present 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* Diagnosis Change in bowel habits- Primary Other symptoms involving digestive system Polyp of colon, unspecified part of colon, unspecified type documented in this encounter [facility]* Diagnosis Irritable bowel syndrome with both constipation and diarrhea- Primary Umbilical hernia without obstruction and without gangrene Incisional hernia, without obstruction or gangrene Anal fissure documented in this encounter [facility]* Diagnosis Well adult exam- Primary Routine general medical examination at a health care facility Anxiety Anxiety state, unspecified Overweight Iron overload Disorders of iron metabolism Encounter for screening for malignant neoplasm of prostate Ex-smoker Personal history of tobacco use, presenting hazards to health Hypogonadism in male Severe episode of recurrent major depressive disorder, without psychotic features ([facility]) Irritable bowel syndrome with both constipation and diarrhea documented in this [facility] iPayment SystemEvaluchristiana hospital note* Diagnosis Anal fissure- Primary [facility]* Diagnosis Irritable bowel syndrome with both constipation and diarrhea- Primary [facility] this encounter [facility]* Diagnosis Chronic idiopathic constipation- Primary Unspecified constipation Hepatitis C virus infection without hepatic coma, unspecified chronicity documented [facility] this encounter [facility]* Diagnosis 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 Outlet dysfunction constipation Stress-related physiological response affecting medical condition Psychic factors associated with diseases classified elsewhere [facility] this encounter [facility]* Diagnosis Onset Date Resolution Status Admit Date Fracture of fifth metatarsal bone of right foot acute February 18, 2025 1:30pm [facility] Work Phone: Evaluation note* Diagnosis Pelvic floor dysfunction Pelvic muscle wasting Pelvic floor dysfunction- Primary Pelvic muscle wasting Rectal spasm Anal spasm Constipation, unspecified constipation type documented in this encounter [facility]* Diagnosis Pelvic floor dysfunction- Primary Pelvic muscle wasting Rectal spasm Anal spasm Constipation, unspecified constipation type documented in this encounter [facility]* Diagnosis Anxiety Anxiety state, unspecified documented [facility] encounter [facility]* Diagnosis Constipation, unspecified constipation type- Primary Rectal spasm Anal spasm Pelvic floor dysfunction Pelvic muscle wasting Anxiety Anxiety state, unspecified Distressed about housing issues Other specified housing or economic circumstances Orthostatic dizziness documented in this encounter [facility] note* Diagnosis Rectal spasm- Primary Anal spasm Constipation, unspecified constipation type Pelvic floor dysfunction Pelvic muscle wasting Anxiety Anxiety state, unspecified Chronic abdominal pain Abdominal pain, unspecified site Chronic rectal pain Anal or rectal pain documented in this encounter [facility] general Narrative - Reported* Type Description Date Medical History insomnia Medical History anxiety Medical History HTN Surgical History appendix removed Surgical History compartment syndrome left hand 2016 Hospitalization History see surgical hx [facility] Other Hospital course Narrative No data available for this section [facility] Hospital Discharge instructions Additional Instructions Wear leg bag with [place] catheter Follow-up with urology [facility] are [facility] Work Phone: Hospital Discharge instructions No data available for this section [facility] Hospital Discharge instructions Additional Instructions Dr. [...] wearing your boot. You may take NSAIDs/Tylenol [id number] as indicated on the bottle. You should [...] be scheduled with Dr. Avina's office at [facility]. At your follow-up we will remove your splint and sutures. Please call to confirm your follow-up appointment. Dr. Ehsan Avina [facility] [address] [place] [address] [facility]ci[facility] Work Phone: Instructions* Attachments The following attachments cannot be sent through Care Everywhere. * IBS Diet ([place]) documented in this encounterProTravel Appeal Health SystemInstructionsNot on file documented in this encounterProMercy Health Clermont HospitalKofax SystemInstructionsNot on file documented in this encounterProMercy Health Clermont HospitalWound Care Technologies Health SystemInstructionsNot on file documented in this encounterProTravel Appeal Health SystemInstructionsNot on file documented in this encounterProTravel Appeal Health SystemInstructionsNot on file documented in this encounterProMercy Health Clermont HospitalWound Care Technologies Health SystemInstructionsNot on file documented in this encounterProMercy Health Clermont HospitalKofax SystemInstructionsNot on file documented in this encounterProMercy Health Clermont HospitalWound Care Technologies Health SystemInstructionsNot on file documented in this encounterProMercy Health Clermont HospitalWound Care Technologies Health SystemInstructionsNot on file documented in this encounterProMercy Health Clermont HospitalKofax SystemInstructionsNot on file documented in this encounterProMedica Health SystemInstructionsNot on file documented in this encounterProMedica Health SystemInstructionsNot on file documented in this encounterProMedica Health SystemInstructionsNot on file documented in this encounterProMercy Health Clermont Hospitalca Health SystemProgress note No data available for this section [facility] Cammie Reason for referral (narrative)* Medication Prior Authorization - Pending Review Specialty Diagnoses / Procedures Referred By Contac t Referred To Contact Cisco Bonilla DO [address] [facility], [facility] [place] [address] Phone: tel: fax: Referral ID Status Reason Start Date Expiration Date V isits Requested Visits Authorized [id number] Pending Review 1 1 [facility] SystemReason for referral (narrative)* Medication Prior Authorization - Pending Review Specialty Diagnoses / Procedures Referred By Contac t Referred To Contact Cisco Bonilla DO [address] [facility], [facility] [place] [address] Phone: tel: fax: Referral ID Status Reason Start Date Expiration Date V isits Requested Visits Authorized [id number] Pending Review 1 1 [facility] SystemReason for referral (narrative)* Medication Prior Authorization - Pending Review Specialty Diagnoses / Procedures Referred By Contac t Referred To Contact Cisco Bonilla DO [address] [facility], [facility] [place] [address] Phone: tel: fax: Referral ID Status Reason Start Date Expiration Date V isits Requested Visits Authorized [id number] Pending Review 1 1 [facility] SystemReason for referral (narrative)No reason for referral information availableUniversity Hospitals [facility] Work Phone: Summary Purpose Family [...] - Displaced fracture of fifth m etatarsal Marleny 23rd, 2025 11:55am 2-3 WK RECHECK March 13, 2025 3:11 pm Fracture March 18, 2025 11:1 9am Fracture March 19, 2025 10:5 0am Chief Complaint Admit Date ER [facility] RT FOOT FX WX February 18, 2025 1:3 0pm Fracture March 12, 2025 12:0 0am S92.351A - Displaced fracture of fifth m etatarsal March 13, 2025 11:55am 2-3 WK RECHECK March 13, 2025 3:11 pm Fracture March 18, 2025 11:1 9am Fracture March 19, 2025 10:5 0am Caren 2 weeks post op April 08 9:12am Reason for Visit Admit Date Fracture of fifth metatarsal bone of rig ht foot February 18, 2025 1:30pm Fracture of fifth metatarsal bone of rig ht foot March 13, 2025 3:11pm Fracture of fifth metatarsal bone of rig ht foot April 08, 2025 9:12am Other specified postprocedural states Au amina 2024 9:12am Reason for Referral Specialty Diagnoses / Procedures Referred By Contac t Referred To Contact Cisco Bonilla, [address] [facility], [facility] [place] [address] Referral ID Status Reason Start Date Expiration Date V isits Requested Visits Authorized [id number] Pending Review 03/14/2024 03/14/2025 1 1 Specialty Diagnoses / Procedures Referred By Contac t Referred To Contact Diagnoses Change in bowel habits Polyp of colon, unspecified part of colon, unspecified type Procedures Colonoscopy Cisco Bonilla, DO [address] [place] [address] Referral ID Status Reason Start Date Expiration Date V isits Requested Visits Authorized [id number] Pending Review 02/05/2024 02/04/2025 1 1 Additional Source Comments (unrecognized sect ion and content) No Status Records FoundNo Status Records FoundNo Status Records FoundNo Status Records FoundNo Status Records FoundNo Status Records FoundNo Status Records FoundNo Status Records Found INFORMATION SOURCE (unrecogn ized section and content) DATE CREATED AUTHOR 02/14/2018 [facility] DATE CREATED AUTHOR AUTHOR'S ORGANIZ ATION 03/29/2022 [facility] DATE CREATED AUTHOR AUTHOR'S ORGANIZ ATION 05/18/2024 [facility] DATE CREATED AUTHOR AUTHOR'S ORGANIZ ATION 12/10/2024 [facility] DATE CREATED AUTHOR AUTHOR'S ORGANIZ ATION 12/11/2024 [facility] DATE CREATED AUTHOR AUTHOR'S ORGANIZ ATION 03/31/2025 [facility] DATE CREATED AUTHOR AUTHOR'S ORGANIZ ATION 04/03/2025 [facility] DATE CREATED AUTHOR AUTHOR'S ORGANIZ ATION 04/25/2025 [facility] REASON FOR VISIT (unrecogniz ed section [...] Med Refill 02/06/2025 Reason Comments Appointment Left vm we received referral for botox injections Reason Comments Manometry Specialty Diagnoses / Procedures Referred By Contac t Referred To Contact [facility] Diagnoses Pelvic floor dysfunction Procedures ADULT [place] ANORECTAL MANOMETRY ANORECTAL MANOMETRY Violette Maurer APRN.[employer] LOADER [address] [place] [address] Phone: tel: fax: [facility] [address] [place] [address] Referral ID Status Reason Start Date Expiration Date V isits Requested Visits Authorized [id number] Closed Auto-Generate d Referral 02/21/2025 08/21/2025 1 1 Reason Comments New Patient Pelvic floor dysfunc tion Specialty Diagnoses / Procedures Referred By Contac t Referred To Contact [facility] Diagnoses Pelvic floor dysfunction Procedures ADULT [place] ANORECTAL MANOMETRY ANORECTAL MANOMETRY Violette Maurer APRN.[employer]ER [address] [place] [address] Phone: tel: fax: [facility] [address] [place] [address] Referral ID Status Reason Start Date Expiration Date V isits Requested Visits Authorized [id number] Closed Auto-Generate d Referral 02/21/2025 08/21/2025 1 [...] Bonilla DO Primary Care Provider Active Start: January [...] March 03, 2024 End: March 03, 2024 [employer] Relationship Specialty Start Date End Date Cisco Bonilla DO [address], [facility] [place] [address] PCP - General Family Medicine 12/19/19 [employer] Relationship Specialty Start Date End Date Cisco Bonilla DO [address], [facility] [place] [address] PCP - General Family Medicine 12/19/19 [employer] Relationship Specialty Start Date End Date Cisco Bonilla DO [address], [facility] [place] [address] PCP - General Family Medicine 12/19/19 [employer] Relationship Specialty Start Date End Date Cisco Bonilla DO [address], [place] [address] PCP - General Family Medicine 12/19/19 [employer] Relationship Specialty Start Date End Date Cisco Bonilla DO [address] [place] [address] PCP - General Family Medicine 12/19/19 [employer] Relationship Specialty Start Date End Date Cisco Bonilla DO [address], [place] [address] PCP - General Family Medicine 12/19/19 [employer] Relationship Specialty Start Date End Date Cisco Bonilla DO [address], [place] [address] PCP - General Family Medicine 12/19/19 [employer] Relationship Specialty Start Date End Date Cisco Bonilla DO [address], [place] [address] PCP - General Family Medicine 12/19/19 [employer] Relationship Specialty Start Date End Date Cisco Bonilla DO [address] [place] [address] PCP - General Family Medicine 12/19/19 [employer] Relationship Specialty Start Date End Date Cisco Bonilla DO [address] [place] [address] PCP - General Family Medicine 12/19/19 [employer] Relationship Specialty Start Date End Date Carlos AlbertolindenCisco cao DO [address] [place] [address] PCP - General Family Medicine 12/19/19 [employer] Relationship Specialty Start Date End Date Cisco Bonilla DO [address] [place] [address] PCP - General Family Medicine 12/19/19 [employer] Relationship Specialty Start Date End Date Carlos AlbertolindenCisco cao DO [address] [place] [address] PCP - General Family Medicine 12/19/19 [employer] Relationship Specialty Start Date End Date Carlos AlbertolindenCisco cao DO [address] [place] [address] PCP - General Family Medicine 12/19/19 [employer] Relationship Specialty Start Date End Date Cisco Bonilla DO [address] [place] [address] PCP - General Family Medicine 12/19/19 [employer] Relationship Specialty Start Date End Date Cisco Bonilla DO [address] [place] [address] PCP - General Family Medicine 12/19/19 [employer] Relationship Specialty Start Date End Date Carlos AlbertolindenCisco cao DO [address] [place] [address] PCP - General Family Medicine 12/19/19 [employer] Relationship Specialty Start Date End Date Cisco Bonilla DO [address], [place] [address] PCP - General Family Medicine 12/19/19 [employer] Relationship Specialty Start Date End Date Tyson Tolliver MD PCP - General Family Medicine 11/11/15 Vivian Brady MD [address] [place] [address] Gastroenterology 01/16/25 [employer] Relationship Specialty Start Date End Date Cisco Bonilla DO [address], [facility] [place] [address] PCP - General Family Medicine 12/19/19 [employer] Relationship Specialty Start Date End Date Tyson Tolliver MD PCP - General Family Medicine 11/11/15 Vivian Brady MD [address] [address] Gastroenterology 01/16/25 Team Status: Inactive Member Role Status Dates Cisco Bonilla DO Primary Care Provider Active Start: February 18, 2025 End: February 18, 2025 Ehasn Avina DO Attending Provider Active S tart: February 18, 2025 End: February 18, 2025 [employer] Relationship Specialty Start Date End Date Tyson Tolliver MD PCP - General Family Medicine 11/11/15 Vivian Brady MD [address] [address] Gastroenterology 01/16/25 [employer] Relationship Specialty Start Date End Date Tyson Tolliver MD PCP - General Family Medicine 11/11/15 Vivian Brady MD [address] [address] Gastroenterology 01/16/25 [employer] Relationship Specialty Start Date End Date Tyson Tolliver MD PCP - General Family Medicine 11/11/15 Vivian Brady MD [address] [address] Gastroenterology 01/16/25 [employer] Relationship Specialty Start Date End Date Tyson Tolliver MD PCP - General Family Medicine 11/11/15 Vivian Brady MD [address] [address] Gastroenterology 01/16/25 Team Status: Active Member Role Status Dates Cisco Bonilla DO Primary Care Provider Active Start: March 13, 2025 Ehsan Avina DO Attending Provider Active S tart: March 13, 2025 Team Status: Inactive Member Role Status Dates Cicso Bonilla DO Primary Care Provider Active Start: March 13, 2025 End: March 13, 2025 Ehsan Avina DO Attending Provider Active S tart: March 13, 2025 End: March 13, 2025 Team Status: Inactive Member Role Status Dates Cisco Bonilla DO Primary Care Provider Active Start: March 18, 2025 End: March 18, 2025 Ehsan Avina DO Attending Provider Active S tart: March 18, 2025 End: March 18, 2025 Team Status: Active Member Role Status Dates Cisco Bonilla DO Primary Care Provider Active Start: March 12, 2025 Ehsan Avina DO Attending Provider Active S tart: March 12, 2025 Ehsna Avina DO Other Provider Active Start : March 12, 2025 Team Status: Inactive Member Role Status Dates Cisco Bonilla DO Primary Care Provider Active Start: March 19, 2025 End: March 19, 2025 Ehsan Avina DO Attending Provider Active S tart: March 19, 2025 End: March 19, 2025 [employer] Relationship Specialty Start Date End Date Cisco Bonilla DO [address] [facility], [facility] [place] [address] PCP - General Family Medicine 12/19/19 [employer] Relationship Specialty Start Date End Date Tyson Tolliver MD PCP - General Family Medicine 11/11/15 Vivian Brady MD [address] [address] Gastroenterology 01/16/25 [employer] Relationship Specialty Start Date End Date Tyson Tolliver MD PCP - General Family Medicine 11/11/15 Vivian Brady MD [address] [facility] [address] [address] Gastroenterology 01/16/25 [employer] Relationship Specialty Start Date End Date Tyson Tolliver MD PCP - General Family Medicine 11/11/15 Vivian Brady MD [address] [place] [id number] Gastroenterology 01/16/25 Team Status: Inactive Member Role Status Dates Csico Bonilla DO Primary Care Provider Active Start: April 08, 2025 End: April 08, 2025 Ehsan Avina DO Attending Provider Active S tart: April 08, 2025 End: April 08, 2025 Goals (unrecognized section and content) Goals may be documented in a n alternate section Source Comments (unrecognize d section and content) In the event this informatio n is protected by the Federal Confidentiality of Alcohol and Drug Abuse Patient Records regulations: The Federal rules restrict any use of the information to criminally investigate or prosecute any alcohol or drug abuse patient.[facility] CenterIn the event this information is protected by the Federal Confidentiality of Alcohol and Drug Abuse Patient Records regulations: The Federal rules restrict any use of the information to criminally investigate or prosecute any alcohol or drug abuse patient.[facility] CenterIn the event this information is protected by the Federal Confidentiality of Alcohol and Drug Abuse Patient Records regulations: The Federal rules restrict any use of the information to criminally investigate or prosecute any alcohol or drug abuse patient.[facility] CenterIn the event this information is protected by the Federal Confidentiality of Alcohol and Drug Abuse Patient Records regulations: The Federal rules restrict any use of the information to criminally investigate or prosecute any alcohol or drug abuse patient.[facility] CenterIn the event this information is protected by the Federal Confidentiality of Alcohol and Drug Abuse Patient Records regulations: The Federal rules restrict any use of the information to criminally investigate or prosecute any alcohol or drug abuse patient.[facility] CenterIn the event this information is protected by the Federal Confidentiality of Alcohol and Drug Abuse Patient Records regulations: The Federal rules restrict any use of the information to criminally investigate or prosecute any alcohol or drug abuse patient.[facility] CenterIn the event this information is protected by the Federal Confidentiality of Alcohol and Drug Abuse Patient Records regulations: The Federal rules restrict any use of the information to criminally investigate or prosecute any alcohol or drug abuse patient.[facility] CenterIn the event this information is protected by the Federal Confidentiality of Alcohol and Drug Abuse Patient Records regulations: The Federal rules restrict any use of the information to criminally investigate or prosecute any alcohol or drug abuse patient.[facility] CenterIn the event this information is protected by the Federal Confidentiality of Alcohol and Drug Abuse Patient Records regulations: The Federal rules restrict any use of the information to criminally investigate or prosecute any alcohol or drug abuse patient.[facility] FOR RECORDS PERTAINING TO PATIENTS WHO ARE [...] BE BASED ON THE PRIMARY CLINICAL RECORDS. [employer] [facility]. provides no warranty or guarantee of the accuracy or completeness of information in this document.
--- NOTE | 2025-05-07 02:07 | XR_ITS ---
The [place] [id number] Patient Name: HARLAN ARONLD MRN: [id number] date: 1970 Sex: M Assigned Patient Location: ER Current Patient Location: ED.MAIN Accession/Order Number: [id number] Exam Date: 05/07/2025 02:18 Report Date: 05/07/2025 08:42 At the request of: MARISOL BALL MD Procedure: XR abdomen 1V SINGLE VIEW ABDOMEN COMPARISON: CT 09/05/2024 CLINICAL DATA: Chronic worsening rectal pain. Constipation. Supine view the abdomen and pelvis was obtained. There is mild air within the stomach, colon and nondistended small bowel. No prominent colonic stool is seen. No soft tissue masses or suspect renal calculi are noted. There are degenerative changes at the spine, SI joints and hips. XR/XR abdomen 1V IMPRESSION: NONOBSTRUCTIVE BOWEL GAS PATTERN. NO PROMINENT COLONIC STOOL. Impression dictated by: Anni Whitley M.D. 05/07/2025 8:42 AM Dictation Location: [employer] Electronically authenticated by: [id number] Date: 05/07/2025 08:42
--- NOTE | 2025-05-07 02:09 | ED.GENADUL1 ---
HPI HPI - General Adult General Chief complaint: Urogenital-Male Stated complaint: RECTAL PAIN Time Seen by Provider: 05/07/25 02:03 Source: patient Mode of arrival: walk-in Limitations: no limitations History of Present Illness HPI narrative: 54-year-old male presents for rectal pain. He states that he has had this problem for years and about 6 weeks ago he saw a specialist at the [facility]. They told him that his sphincter is not working as well as it should and that is the issue. He states he has been having liquid stool and he feels like he has to push. No blood in his stool and no vomiting or abdominal pain. Related Data Previous Rx's ?Medication ?Instructions ?Recorded ondansetron 4 mg disintegrating 4 mg PO Q6H PRN nausea and 05/06/24 tablet vomiting #12 tabs dicyclomine 20 mg tablet 20 mg PO QID PRN abdominal pain 09/05/24 #12 tabs hydrocodone 5 mg-acetaminophen 325 1 tab PO Q6H PRN pain 3 days #12 02/14/25 mg tablet tabs ciprofloxacin HCl 500 mg tablet 500 mg PO Q12H #20 tabs 05/07/25 (Cipro) hydrocodone 5 mg-acetaminophen 325 1 tab PO Q6H PRN pain 5 days #20 05/07/25 mg tablet tabs metronidazole 500 mg tablet 500 mg PO TID #30 tabs 05/07/25 ondansetron 4 mg disintegrating 4 mg PO Q6H PRN nausea and 05/07/25 tablet vomiting #20 tabs Allergies Allergy/AdvReac Type Severity Reaction Status Date / Time No Known Drug Allergies Allergy Verified 05/07/25 01:56 Opioid HPI Opioid Management Most Recent Opioid Data: Last Pain Scale 8 Today, 05:44 Last MAR Pain Assessment Today, 05:44 Ur Phencyclidine Scrn, (NEGATIVE) Negative 05/06/24, 15:20 Review of Systems ROS Narrative A ten point review of systems is negative except as noted above. PFSH PFSH Social History Little interest or pleasure in doing things: not at all Feeling down, depressed, or hopeless: not at all Exam Narrative Exam Narrative: Nurses note and vital signs reviewed and patient is not hypoxic. General: The patient appears uncomfortable and in no acute distress. Skin: Warm, dry, no pallor noted. There is no rash noted. Head: Normocephalic, atraumatic Eye: Normal conjunctiva, no drainage Ears, Nose, Mouth, and Throat: oral mucosa is moist. Nares patent. Cardiovascular: Regular Rate and Rhythm Respiratory: Patient is in no distress, no accessory muscle use, lungs are clear to auscultation, no wheezing, rales or rhonchi Back: non-tender GI: Soft and nontender. Perianal examination shows no external hemorrhoids Musculoskeletal: The patient has no evidence of calf tenderness, no pitting edema, symmetrical pulses noted bilaterally Neurological: A&O, normal speech Psychiatric: Cooperative Constitutional Vital Signs, click to edit/add: Last Vital Signs Temp 98.7 F 05/07/25 01:56 Pulse 85 05/07/25 01:56 Resp 18 05/07/25 01:56 BP 177/110 H 05/07/25 05:32 Pulse Ox 99 05/07/25 05:32 O2 Del Method Room Air 05/07/25 01:56 Course Vital Signs Vital signs: Vital Signs Temperature 98.7 F 05/07/25 01:56 Pulse Rate 85 05/07/25 01:56 Respiratory Rate 18 05/07/25 01:56 Blood Pressure 198/125 H 05/07/25 01:56 Pulse Oximetry 100 05/07/25 01:56 Oxygen Delivery Method Room Air 05/07/25 01:56 Temperature 98.7 F 05/07/25 01:56 Pulse Rate 85 05/07/25 01:56 Respiratory Rate 18 05/07/25 01:56 Blood Pressure 177/110 H 05/07/25 05:32 Pulse Oximetry 99 05/07/25 05:32 Oxygen Delivery Method Room Air 05/07/25 01:56 Medical Decision Making MDM Narrative Medical decision making narrative: The patient felt constipated and he was given enema with good results. He continued to have pain however so CAT scan was performed and this indicates acute diverticulitis, uncomplicated. He was given IV Cipro and Flagyl here and discharged home on oral Cipro and Flagyl as well as Hubbard and Zofran. No evidence of proctitis or obstruction or perforation or abscess. Treatment diagnosis and follow-up were discussed with the patient. Differential Diagnosis Differential Diagnosis: Constipation, proctitis, UTI, diverticulitis Lab Data Lab results reviewed: Yes I reviewed the patient's lab results Labs: Lab Results 05/07/25 05/07/25 Range/Units 02:25 03:45 WBC 6.9 (4.0-11.0) 10^3/uL RBC 5.05 (4.70-6.10) 10^6/uL Hgb 16.4 (14.0-18.0) g/dL Hct 46.3 (42.0-54.0) % MCV 91.7 (80.0-94.0) fL MCH 32.5 (25.9-34.0) pg MCHC 35.4 H (29.9-35.2) g/dL RDW 11.5 (11.0-15.0) % Plt Count 225 (150-450) 10^3/uL MPV 10.3 (9.5-13.5) fL Neut % (Auto) 64.9 (43.0-75.0) % Lymph % (Auto) 22.4 (20.5-60.0) % [place] % (Auto) 8.4 (1.7-12.0) % Eos % (Auto) 3.3 (0.9-7.0) % Baso % (Auto) 0.7 (0.2-2.0) % Neut # (Auto) 4.5 (1.4-6.5) 10^3/uL Lymph # (Auto) 1.5 (1.2-3.8) 10^3/uL [place] # (Auto) 0.6 (0.3-0.8) 10^3/uL Eos # (Auto) 0.2 (0.0-0.7) 10^3/uL Baso # (Auto) 0.1 (0.0-0.1) 10^3/uL Abs Immat Gran (auto) 0.02 (0.00-0.03) 10^3/uL Imm/Tot Granulo (auto) 0.3 (0.0-0.5) % Sodium 142 (136-145) mmol/L Potassium 3.6 (3.5-5.1) mmol/L Chloride 105 (98-107) mmol/L Carbon Dioxide 27.3 (21.0-32.0) mmol/L Anion Gap 13.3 BUN 3.0 L (7.0-18.0) mg/dL Creatinine 0.74 (0.70-1.30) mg/dL Est GFR ( Amer) >60 (>=60 mL/min/1.73m^2) Est GFR (Non-Af Amer) >60 (>=60 mL/min/1.73m^2) BUN/Creatinine Ratio 4.1 Glucose 98 (74-106) mg/dL Calcium 8.6 (8.5-10.1) mg/dL Urine Color Lt. yellow (YELLOW) Urine Clarity Clear (CLEAR) Urine pH 7.0 (5.0-9.0) Ur Specific [place] 1.010 (1.005-1.025) Urine Protein Negative (NEG/TRACE) mg/dL Urine Glucose (UA) Negative (NEGATIVE) mg/dL Urine Ketones Negative (NEGATIVE) mg/dL Urine Occult Blood Negative (NEGATIVE) Urine Nitrite Negative (NEGATIVE) Urine Bilirubin Negative (NEGATIVE) Urine Urobilinogen 0.2 (0.2-1.0) EU/dL Ur Leukocyte Esterase Negative (NEGATIVE) Urine RBC None seen (0-2) #/HPF Urine WBC None seen (NONE SEEN) #/HPF Ur Squamous Epith Cells None seen (NONE/RARE) #/LPF Urine Crystals None seen (None Seen) #/HPF Urine Bacteria None seen (NONE SEEN) #/HPF Urine Casts None seen (NONE SEEN) #/LPF Urine Mucus None seen (NONE SEEN) Ur Culture Indicated? No Imaging Data CT scan - abdomen: Radiologist's impression: Mild stranding along the margins of the lower left colon suggestive of mild acute diverticulitis Discharge Plan Discharge Chief Complaint: Urogenital-Male Clinical Impression: Acute diverticulitis Patient Disposition: Home, Self-Care Time of Disposition Decision: 06:51 Condition: Good Mode of Transportation: Private Vehicle Prescriptions / Home Meds: New hydrocodone-acetaminophen 5-325 mg tablet 1 tab PO Q6H PRN (Reason: pain) 5 Days Qty: 20 0RF metronidazole 500 mg tablet 500 mg PO TID Qty: 30 0RF ciprofloxacin HCl [Cipro] 500 mg tablet 500 mg PO Q12H Qty: 20 0RF ondansetron 4 mg tablet,disintegrating 4 mg PO Q6H PRN (Reason: nausea and vomiting) Qty: 20 0RF No Action dicyclomine 20 mg tablet 20 mg PO QID PRN (Reason: abdominal pain) Qty: 12 0RF ondansetron 4 mg tablet,disintegrating 4 mg PO Q6H PRN (Reason: nausea and vomiting) Qty: 12 0RF hydrocodone-acetaminophen 5-325 mg tablet 1 tab PO Q6H PRN (Reason: pain) 3 Days Qty: 12 0RF Rx Instructions: M79.671 Print Language: Mohawk Instructions: Diverticulitis (ED) Referrals: MELY BONILLA [Primary Care Provider, Family Practice] - 1 week
--- NOTE | 2025-05-07 02:12 | PC.NURSE ---
this patient informed of plan of care, urine sample and x-ray. this patient voices I don't think i can go right now
[2025-05-07 02:33] LABS: Glucose Urine UA NEGATIVE (NEGATIVE)
[2025-05-07 02:38] LABS: Cast Seen? NONE SEEN #/LPF (NONE SEEN); Crystals Seen? None Seen #/HPF (None Seen)
[2025-05-07 02:39] LABS: Urine Culture Indicated NO
[2025-05-07 03:58] LABS: Hematocrit 46.3 % (42.0-54.0); Hemoglobin 16.4 g/dL (14.0-18.0); Immature Granulocytes Abs Auto 0.02 10^3/uL (0.00-0.03); Immature Granulocytes Pct Auto 0.3 % (0.0-0.5); Lymphocytes Absolute Auto 1.5 10^3/uL (1.2-3.8); Mean Corpuscular HGB Conc 35.4 g/dL (29.9-35.2); Mean Corpuscular Hemoglobin 32.5 pg (25.9-34.0); Mean Corpuscular Volume 91.7 fL (80.0-94.0); Platelet Count 225 10^3/uL (150-450); Red Blood Count 5.05 10^6/uL (4.70-6.10); White Blood Count 6.9 10^3/uL (4.0-11.0)
[2025-05-07 04:07] LABS: Anion Gap 13.3; Blood Urea Nitrogen 3.0 mg/dL (7.0-18.0); Calcium 8.6 mg/dL (8.5-10.1); Carbon Dioxide 27.3 mmol/L (21.0-32.0); Chloride 105 mmol/L (98-107); Estimated GFR (African America >60 (>=60 mL/min/1.73m^2); Estimated GFR (Non-African Ame >60 (>=60 mL/min/1.73m^2); Glucose 98 mg/dL (74-106); Potassium 3.6 mmol/L (3.5-5.1); Sodium 142 mmol/L (136-145)
[2025-05-07] MEDS: HYDRALAZINE HCL 20 MG/ML VIAL 10 MG IVP (04:09)
--- NOTE | 2025-05-07 05:06 | PC.NURSE ---
this patient voices to me the pressure is back in his rectum and i informed Dr Underwood of this
[2025-05-07] MEDS: MORPHINE SULFATE 4 MG/ML VIAL IV (05:44)
[2025-05-07] MEDS: CIPROFLOXACIN IN 5 % DEXTROSE 400 MG/200 ML PREMIX 200 MG IV (07:12)
[2025-05-07] MEDS: METRONIDAZOLE/SODIUM CHLORIDE 500 MG/100 ML PREMIX 100 MG IV (08:06)
== END 2025-05-07 08:46 | disposition home or self-care (01) ==
PROVIDERS: Emergency Provider Emergency Medicine; PCP Family Medicine
DX: K57.32 Diverticulitis of large intestine without perforation or abscess without bleeding (principal)
CPT/HCPCS: 36415; 74018; 74177; 80048; 81001; 85025; 96365; 96368; 96375; 99285; J0360; J0744; J1836; J2270; Q9967

== ENCOUNTER 2025-05-07 23:58 | Emergency (ER) | payer OTHER, SELFPAY ==
[2025-05-08 00:17] VITALS: BP 146/102; PULSE 93; TEMP 36.9; O2SAT 99; BMI 25.8
--- NOTE | 2025-05-08 00:45 | XR_ITS ---
The [address] [address] Patient Name: HARLAN ARNOLD MRN: [id number] date: 1970 Sex: M Assigned Patient Location: ER Current Patient Location: Accession/Order Number: [id number] Exam Date: 05/08/2025 01:25 Report Date: 05/08/2025 08:24 At the request of: MOR DOWELL MD Procedure: XR acute abdomen series ACUTE ABDOMEN SERIES WITH PA CHEST: CLINICAL HISTORY: diverticulitis dx'd yesterday with rectal pain COMPARISON: CT abdomen 05/07/2025 and chest x-ray 02/01/2025 The chest film shows no acute cardiopulmonary findings. Supine and upright views of the abdomen and pelvis demonstrate scattered small and large bowel air , without disproportionate distention. No prominent colonic stool is seen. No free air is identified. There are short colonic air-fluid levels. No soft tissue masses or abnormal calcifications are identified. Degenerative changes are visualized at the spine, SI joints and hips. XR/XR acute abdomen series IMPRESSION: NO ACUTE CARDIOPULMONARY FINDINGS. NONSPECIFIC, NONOBSTRUCTIVE BOWEL GAS PATTERN. Impression dictated by: Anni Whitley M.D. 05/08/2025 8:24 AM Dictation Location: [place] [address] Electronically authenticated by: [id number] Y Date: 05/08/2025 08:24
--- NOTE | 2025-05-08 00:45 | ECG_ITS ---
The [facility] Test Date: 2025-05-08 Pat Name: HARLAN ARNOLD Department: Room: - Gender: Male Record Center Coordinator: : 1970 Requested By: [id number] Order Number: [id number] Reading MD: Alejandro Rodriguez Measurements Intervals [place] Rate: 86 P: 53 HI: 144 QRS: 59 QRSD: 86 T: 64 QT: 388 QTc: 432 Interpretive Statements 1100 Sinus rhythm 9110 normal ECG Compared to ECG 05/06/2024 15:07:16 No significant changes Electronically Signed On 05-08-2025 12:35:27 EDT by Alejandro Rodriguez
--- NOTE | 2025-05-08 00:47 | ED.ABDPAIN1 ---
HPI - Abdominal Pain General Chief Complaint: Abdominal Pain Stated Complaint: RECTAL PAIN, SECOND VISIT Time Seen by Provider: 05/08/25 00:00 Source: patient Mode of arrival: walk-in Limitations: no limitations History of Present Illness HPI narrative: This 54-year-old male who was diagnosed with diverticulitis yesterday and has an ongoing problem with rectal pain and tenesmus who has been seen by a local regulatory submissions associate and also by a specialist at [facility] where he failed a test where they put a balloon in his rectum and encouraged him to push it out and was then referred to physical therapy presents for evaluation of multiple complaints, he states he is still having rectal pain and pressure. He thought he was going to have a bowel movement today but went to the bathroom and only a small amount of stool resulted. He is having pain and pressure in the rectal area and left lower quadrant of his abdomen. He was seen yesterday and diagnosed with diverticulitis and discharged home with Lillian Oliver Cipro and Maxwell. He is not having any nausea or vomiting. He states that he was barely able to drive here because he was so anxious and his blood pressure was high and he was having blurred vision. The symptoms have since improved. He also states he has pressure when trying to urinate. His urine yesterday was negative for infection. He does not have any fevers or chills. He denies any chest pain or shortness of breath. He has been dizzy but has not passed out. He has no lower extremity pain or swelling. Related Data Previous Rx's ?Medication ?Instructions ?Recorded ondansetron 4 mg disintegrating 4 mg PO Q6H PRN nausea and 05/06/24 tablet vomiting #12 tabs dicyclomine 20 mg tablet 20 mg PO QID PRN abdominal pain 09/05/24 #12 tabs hydrocodone 5 mg-acetaminophen 325 1 tab PO Q6H PRN pain 3 days #12 02/14/25 mg tablet tabs ciprofloxacin HCl 500 mg tablet 500 mg PO Q12H #20 tabs 05/07/25 (Cipro) hydrocodone 5 mg-acetaminophen 325 1 tab PO Q6H PRN pain 5 days #20 05/07/25 mg tablet tabs metronidazole 500 mg tablet 500 mg PO TID #30 tabs 05/07/25 ondansetron 4 mg disintegrating 4 mg PO Q6H PRN nausea and 05/07/25 tablet vomiting #20 tabs Allergies Allergy/AdvReac Type Severity Reaction Status Date / Time No Known Drug Allergies Allergy Verified 05/07/25 01:56 Review of Systems ROS Status of ROS 10 or more systems reviewed and unremarkable except as noted in history and below [facility] Social History Little interest or pleasure in doing things: not at all Feeling down, depressed, or hopeless: not at all Exam Narrative Exam Narrative: Vital signs and Nursing Notes reviewed: Patient is afebrile, pulse is elevated at 93, blood pressure is elevated 146/102, he is not hypoxic with pulse ox of 99% on room air General: Awake, alert, oriented, nontoxic but anxious middle-aged female, no acute distress, lying comfortably on the stretcher HEENT: Normocephalic atraumatic, mucous membranes are moist and pink, eyes are clear, normal conjunctiva, vision is grossly intact, posterior pharynx is normal in appearance Neck: Supple, no meningeal signs, no anterior or posterior cervical lymphadenopathy Chest: Lungs are clear to auscultation with good air entry, there is no wheezing rhonchi or rales appreciated no accessory muscle use, patient is speaking in complete sentences-no chest wall tenderness to palpation CVS: Regular rate and rhythm S1-S2, no murmurs rubs or gallops, pulses are brisk and equal bilaterally ABD: Soft, nondistended, generalized abdominal tenderness with no rebound guarding or rigidity, bowel sounds are normal Extremities: Moving all extremities, no lower extremity tenderness or swelling noted, negative Homans' sign, pulses are brisk and equal bilaterally Skin: Normal in appearance without rash,pallor, petechiae or purpura Neuro: No focal deficits Constitutional Vital Signs, click to edit/add: Last Vital Signs Temp 98.4 F 05/08/25 00:17 Pulse 93 H 05/08/25 00:17 Resp 20 05/08/25 00:17 BP 146/102 H 05/08/25 00:17 Pulse Ox 99 05/08/25 00:17 O2 Del Method Room Air 05/08/25 00:17 Course Vital Signs Vital signs: Vital Signs Temperature 98.4 F 05/08/25 00:17 Pulse Rate 93 H 05/08/25 00:17 Respiratory Rate 20 05/08/25 00:17 Blood Pressure 146/102 H 05/08/25 00:17 Pulse Oximetry 99 05/08/25 00:17 Oxygen Delivery Method Room Air 05/08/25 00:17 Temperature 98.4 F 05/08/25 00:17 Pulse Rate 93 H 05/08/25 00:17 Respiratory Rate 20 05/08/25 00:17 Blood Pressure 146/102 H 05/08/25 00:17 Pulse Oximetry 99 05/08/25 00:17 Oxygen Delivery Method Room Air 05/08/25 00:17 MDM - Abdominal Pain MDM Narrative Medical decision making narrative: This 54-year-old male with a history of an incompetent anal sphincter who was seen here yesterday for anal pain and found to have diverticulitis presents for evaluation of ongoing rectal pain and pressure. He is also complaining of urinary symptoms. He had a urine done yesterday that was normal. He states that when he cannot have a bowel movement his blood pressure goes up and he becomes anxious and dizzy with blurred vision. He presents tonight with all of these complaints. His vital signs are stable. He has a normal EKG. An IV was placed and he was medicated with Toradol and IV fluids. At 1 point he needed to urinate and urinated stating that he had a lot of relief after urinating. A bladder scan then revealed greater than 400 cc of retained urine in his bladder. He has a normal white count and stable hemoglobin. Electrolyte panel and lipase are normal. Liver function test are normal with a mild elevation in the alkaline phosphatase at 139. The remainder of his liver function tests are normal. He had a CT scan done yesterday so an abdominal series x-ray was ordered. It shows a nonspecific bowel gas pattern with no free air, no obstructive signs and a normal-appearing chest. I discontinued his IV fluids and he made another trip to the bathroom where he was only able to urinate a few drops of urine. He was agreeable to straight cath to empty his bladder. He states he did have urinary retention once in the past after he was in a drug rehab after being abruptly taken off of his Xanax. Urine is negative for infection. He is feeling better after being straight cath'd to empty his bladder. He was given a dose of flomax and will be discharged home with Rx for Flomax and referred to outpatient urology for further evaluation of his urinary retention. Medical Records Attestation: I reviewed the patient's medical records. Lab Data Attestation: I reviewed the patient's lab results. Labs: Lab Results 05/08/25 05/08/25 Range/Units 01:17 01:55 WBC 8.8 (4.0-11.0) 10^3/uL RBC 4.90 (4.70-6.10) 10^6/uL Hgb 15.8 (14.0-18.0) g/dL Hct 44.3 (42.0-54.0) % MCV 90.4 (80.0-94.0) fL MCH 32.2 (25.9-34.0) pg MCHC 35.7 H (29.9-35.2) g/dL RDW 11.7 (11.0-15.0) % Plt Count 182 (150-450) 10^3/uL MPV 10.4 (9.5-13.5) fL Neut % (Auto) 79.1 H (43.0-75.0) % Lymph % (Auto) 11.3 L (20.5-60.0) % [place] % (Auto) 7.4 (1.7-12.0) % Eos % (Auto) 1.4 (0.9-7.0) % Baso % (Auto) 0.6 (0.2-2.0) % Neut # (Auto) 6.9 H (1.4-6.5) 10^3/uL Lymph # (Auto) 1.0 L (1.2-3.8) 10^3/uL [place] # (Auto) 0.7 (0.3-0.8) 10^3/uL Eos # (Auto) 0.1 (0.0-0.7) 10^3/uL Baso # (Auto) 0.1 (0.0-0.1) 10^3/uL Abs Immat Gran (auto) 0.02 (0.00-0.03) 10^3/uL Imm/Tot Granulo (auto) 0.2 (0.0-0.5) % Sodium 135 L (136-145) mmol/L Potassium 3.8 (3.5-5.1) mmol/L Chloride 101 (98-107) mmol/L Carbon Dioxide 25.6 (21.0-32.0) mmol/L Anion Gap 12.2 BUN 10.0 (7.0-18.0) mg/dL Creatinine 0.98 (0.70-1.30) mg/dL Est GFR ( Amer) >60 (>=60 mL/min/1.73m^2) Est GFR (Non-Af Amer) >60 (>=60 mL/min/1.73m^2) BUN/Creatinine Ratio 10.2 Glucose 107 H (74-106) mg/dL Lactate 1.6 (0.4-2.0) mmol/L Calcium 9.1 (8.5-10.1) mg/dL Total Bilirubin 0.4 (0.2-1.0) mg/dL AST 17 (15-37) U/L ALT 27 (16-63) U/L Alkaline Phosphatase 139 H (46-116) U/L Troponin I High Sens 9.8 (4.0-76.1) pg/mL Total Protein 7.1 (6.4-8.2) g/dL Albumin 3.8 (3.4-5.0) g/dL Globulin 3.3 g/dL Albumin/Globulin Ratio 1.2 Lipase 35.0 (16.0-77.0) U/L Urine Color Lt. yellow (YELLOW) Urine Clarity Clear (CLEAR) Urine pH 5.5 (5.0-9.0) Ur Specific [place] 1.010 (1.005-1.025) Urine Protein Negative (NEG/TRACE) mg/dL Urine Glucose (UA) Negative (NEGATIVE) mg/dL Urine Ketones Negative (NEGATIVE) mg/dL Urine Occult Blood Negative (NEGATIVE) Urine Nitrite Negative (NEGATIVE) Urine Bilirubin Negative (NEGATIVE) Urine Urobilinogen 0.2 (0.2-1.0) EU/dL Ur Leukocyte Esterase Negative (NEGATIVE) Urine RBC None seen (0-2) #/HPF Urine WBC None seen (NONE SEEN) #/HPF Ur Squamous Epith Cells None seen (NONE/RARE) #/LPF Urine Crystals None seen (None Seen) #/HPF Urine Bacteria None seen (NONE SEEN) #/HPF Urine Casts None seen (NONE SEEN) #/LPF Urine Mucus None seen (NONE SEEN) Ur Culture Indicated? No ECG Data Attestation: I personally reviewed and interpreted this ECG as follows: (Sinus rhythm 86 bpm, normal axis, normal intervals, no acute ST segment elevation or T wave inversion) Discharge Plan Discharge Chief Complaint: Abdominal Pain Clinical Impression: Pain, rectum, Acute urinary retention Patient Disposition: Home, Self-Care Time of Disposition Decision: 02:35 Condition: Good Prescriptions / Home Meds: No Action dicyclomine 20 mg tablet 20 mg PO QID PRN (Reason: abdominal pain) Qty: 12 0RF hydrocodone-acetaminophen 5-325 mg tablet 1 tab PO Q6H PRN (Reason: pain) 5 Days Qty: 20 0RF metronidazole 500 mg tablet 500 mg PO TID Qty: 30 0RF ciprofloxacin HCl [Cipro] 500 mg tablet 500 mg PO Q12H Qty: 20 0RF ondansetron 4 mg tablet,disintegrating 4 mg PO Q6H PRN (Reason: nausea and vomiting) Qty: 20 0RF ondansetron 4 mg tablet,disintegrating 4 mg PO Q6H PRN (Reason: nausea and vomiting) Qty: 12 0RF hydrocodone-acetaminophen 5-325 mg tablet 1 tab PO Q6H PRN (Reason: pain) 3 Days Qty: 12 0RF Rx Instructions: M79.671 Print Language: Burmese Instructions: Urinary Retention in Men (ED), Rectal Pain (ED) Referrals: anamika [Other] - 1 week Lilian Barajas MD [Physician, Urology] - 1 week
[2025-05-08 01:23] LABS: Hematocrit 44.3 % (42.0-54.0); Hemoglobin 15.8 g/dL (14.0-18.0); Immature Granulocytes Abs Auto 0.02 10^3/uL (0.00-0.03); Immature Granulocytes Pct Auto 0.2 % (0.0-0.5); Lymphocytes Absolute Auto 1.0 10^3/uL (1.2-3.8); Mean Corpuscular HGB Conc 35.7 g/dL (29.9-35.2); Mean Corpuscular Hemoglobin 32.2 pg (25.9-34.0); Mean Corpuscular Volume 90.4 fL (80.0-94.0); Platelet Count 182 10^3/uL (150-450); Red Blood Count 4.90 10^6/uL (4.70-6.10); White Blood Count 8.8 10^3/uL (4.0-11.0)
[2025-05-08] MEDS: 0.9 % SODIUM CHLORIDE 1,000 ML 1000 ML IV (01:29)
[2025-05-08] MEDS: KETOROLAC TROMETHAMINE 30 MG/ML VIAL IVP (01:29)
[2025-05-08 01:41] LABS: Alanine Aminotransferase 27 U/L (16-63); Albumin Globulin Ratio 1.2; Albumin Level 3.8 g/dL (3.4-5.0); Alkaline Phosphatase 139 U/L (46-116); Anion Gap 12.2; Aspartate Amino Transferase 17 U/L (15-37); Blood Urea Nitrogen 10.0 mg/dL (7.0-18.0); Calcium 9.1 mg/dL (8.5-10.1); Carbon Dioxide 25.6 mmol/L (21.0-32.0); Chloride 101 mmol/L (98-107); Estimated GFR (African America >60 (>=60 mL/min/1.73m^2); Estimated GFR (Non-African Ame >60 (>=60 mL/min/1.73m^2); Globulin 3.3 g/dL; Glucose 107 mg/dL (74-106); Potassium 3.8 mmol/L (3.5-5.1); Sodium 135 mmol/L (136-145); Total Protein 7.1 g/dL (6.4-8.2)
[2025-05-08 01:43] LABS: Lactate/Lactic Acid 1.6 mmol/L (0.4-2.0)
[2025-05-08 01:44] LABS: Lipase 35.0 U/L (16.0-77.0)
--- OUTSIDE RECORDS SUMMARY | 2025-05-08 02:05 | XMS_ITS | Encounter Summary ---
Author Organization [employer] Address [id number] [address] [place] [address] Care Team Providers Care Barber Shop Operator Name Role Phone Cisco Blanc DO Primary Care Provider [phone] Reason for Visit * Reason Comments Med Refill Encounter Details Date Type Department Care Team (Late st Contact Info) Description 08/30/2022 Refill [facility] Internal Medicine - Family Medicine [address] [place] [address] Cisco Blanc DO [address], [facility] [place] [address] Social History Tobacco Use Types Packs/Day Years [...] How often do you attend yarsani or baptism serv ices? Never 08/01/2022 Active Member of [...] Answer Date Recorded Total Score 9 08/01/2022 [facility] Occupat ional Health [...] fllow up with [facility] upon Dc documented as of this encounter Visit Diagnoses Not on filedocumented in this encounter Additional Health Concerns Assessment Noted Time PHQ-9 Depression Total Score: 9 08/01/20 22 6:00 PM EST documented as of this encounter Care Teams Barber Shop Operator Relationship Specialty Start Date End Date Cisco Blanc DO [address] [place] [address] PCP - General Family Medicine 12/19/19 documented as of this encounter
--- OUTSIDE RECORDS SUMMARY | 2025-05-08 02:05 | XMS_ITS | Encounter Summary ---
Author Organization [employer] tem Address [id number] [address] [place] [address] Care Team Providers Care Cycle Specialist Name Role Phone Cisco Blanc Primary Care Provider Encounter Details Date Type Department Care Team (Late st Contact Info) Description 02/14/2024 [facility] [address] [place] [id number] Linda Marc CMA Social History Tobacco Use [...] week 08/01/2022 How often do you attend holiness or spiritism serv ices? Never 08/01/2022 Active [...] Answer Date Recorded Total Score 16 12/09/2023 [facility] of Occupat ional Health - Occupational Stress [...] Recorded Do you need help finding a [email or web address] career center and/or a training program? [...] him know that Dr Burciaga sent in Swapdom to his pharmacy also Isent him a email of instructions as pt requested documented in this encounter Plan of Treatment Not on file documented as of this encounter Goals Goal Patient Goal Type Associated Problems Recent Progress Patient-Stated? Author home with self care General Yes Jenny Nooann, RN Note: Evaluation of progress towards goal: with support from friends and family, patient needs to fllow up with [facility] upon Dc documented as of this encounter Visit Diagnoses Not on filedocumented in this encounter Additional Health Concerns Assessment Noted Time PHQ-9 Depression Total Score: 16 024 8:43 AM EDT documented as of this encounter Care Teams Cycle Specialist Relationship Specialty Start Date End Date Cisco Blanc DO [address], [place] [address] PCP - General Family Medicine 12/19/19 documented as of this encounter
--- OUTSIDE RECORDS SUMMARY | 2025-05-08 02:05 | XMS_ITS | Encounter Summary ---
Demographics Address [address] [facility] [place] [address] Home Phone Mobile Phone Email Address Email Address Preferred Language ENG Marital Status Single Hoahaoism Affiliation Unknown Race White Ethnic Group or Author Organization [facility] Address [address] [place] [id number] Care Team Providers Care Commercial Hvac Technician Name Role Phone Tyson Fonseca MD Primary Care Provider [phone] Vivian Brady MD Unavailable [phone] Source Comments In the event this information is protected by the Federal Confidentiality of Alcohol and Drug AbusePatient Records regulations: The Federal rules restrict any use of the information to criminally investigate or prosecute any alcohol or drug abuse patient.[facility] Encounter Details Date Type Department Care Team (Late st Contact Info) Description 02/15/2025 Patient Msg General Surgery [address] [id number] Provider, Ccwaqar Follow up from phone call [...] on filedocumented in this encounter Care Teams Commercial Hvac Technician Relationship Specialty Start Date End Date Tyson Fonseca MD PCP - General Family Medicine 11/11/15 Vivian Brady MD [address] [place] [address] Gastroenterology 01/16/25 documented as of this encounter
--- OUTSIDE RECORDS SUMMARY | 2025-05-08 02:05 | XMS_ITS | Encounter Summary ---
Author Organization [employer] tem Address [id number] [address] [place] [address] Care Team Providers Care Legal Consultant Name Role Phone Cisco Blanc Primary Care Provider Encounter Details Date Type Department Care Team (Late st Contact Info) Description 02/13/2024 [facility] [address] [place] [place] [phone] Linda Marc CMA Social History Tobacco Use [...] How often do you attend synagogue or sabianism serv ices? Never 08/01/2022 Active [...] Answer Date Recorded Total Score 16 12/09/2023 [facility] of Occupat ional Health - Occupational Stress [...] Recorded Do you need help finding a [employer] al career center and/or a training program? [...] documented as of this encounter Care Teams Legal Consultant Relationship Specialty Start Date End Date Cisco Blanc DO [address], [place] [address] PCP - General Family Medicine 12/19/19 documented as of this encounter
--- OUTSIDE RECORDS SUMMARY | 2025-05-08 02:05 | XMS_ITS | Encounter Summary ---
Author Organization [employer] tem Address [facility] [id number] [address] [place] [address] Care Team Providers Care Embedder Name Role Phone Cisco Blanc DO Primary Care Provider [phone] Reason for Visit * Reason Comments Med Refill Encounter Details Date Type Department Care Team (Late st Contact Info) Description 08/17/2022 Refill [facility] Internal [facility] - Family Medicine [address] [place] [address] Cisco Blanc DO [address], [facility] [place] [address] Social History Tobacco Use Types Packs/Day Years [...] How often do you attend buddhism or jew serv ices? Never 08/01/2022 Active [...] Answer Date Recorded Total Score 9 08/01/2022 [facility] of Occupat ional Health - Occupational Stress [...] family, patient needs to fllow up with [facility] upon Dc documented as of this encounter Visit Diagnoses Not on filedocumented in this encounter Additional Health Concerns Assessment Noted Time PHQ-9 Depression Total Score: 9 08/01/20 22 6:00 PM EST documented as of this encounter Care Teams Embedder Relationship Specialty Start Date End Date Cisco Blanc DO [address], [place] [address] PCP - General Family Medicine 12/19/19 documented as of this encounter
--- OUTSIDE RECORDS SUMMARY | 2025-05-08 02:05 | XMS_ITS | Encounter Summary ---
Author Organization [employer] tem Address [id number] [address] [place] [address] Care Team Providers Care Home Care Liaison Name Role Phone Cisco Blanc Primary Care Provider Encounter Details Date Type Department Care Team (Late st Contact Info) Description 02/06/2024 [facility] [address] [place] [phone] Linda Marc CMA Social History Tobacco Use [...] Answer Date Recorded Total Score 16 12/09/2023 [facility] of Occupat ional Health - Occupational Stress [...] Recorded Do you need help finding a [employer] al career center and/or a training program? [...] would like the [facility] his pharmacy is [facility] in [place]. He is a Dr Blanc pt. Change [...] family, patient needs to fllow up with [facility] documented as of this encounter Visit Diagnoses Not on filedocumented in this encounter Additional Health Concerns Assessment Noted Time PHQ-9 Depression Total Score: 16 024 8:43 AM EDT documented as of this encounter Care Teams Home Care Liaison Relationship Specialty Start Date End Date Cisco Blanc DO [address], [place] [address] PCP - General Family Medicine 12/19/19 documented as of this encounter
--- OUTSIDE RECORDS SUMMARY | 2025-05-08 02:05 | XMS_ITS | Clinical Summary ---
Author Organization [facility] Address [address] [place] [address], [address] [place] [address] Care Team Providers Care Truck Sales Manager Name Role Phone Tyson Fonseca MD Primary [...] of Treatment Not on file Care Teams Truck Sales Manager Relationship Specialty Start Date End Date Tyson Fonseca MD PCP - General 07/09/16
--- OUTSIDE RECORDS SUMMARY | 2025-05-08 02:05 | XMS_ITS | Encounter Summary ---
Demographics Address [address] [facility] [place] [address] Home Phone Mobile Phone Email Address Email Address Preferred Language ENG Marital Status Single Methodist Affiliation Unknown Race White Ethnic Group or Author Organization [facility] Address [address] [place] [address] Care Team Providers Care Natural Resources Specialist Name Role Phone Tyson Fonseca MD Primary Care Provider [phone] Vivian Brady MD Unavailable [phone] Source Comments In the event this information is protected by the Federal Confidentiality of Alcohol and Drug AbusePatient Records regulations: The Federal rules restrict any use of the information to criminally investigate or prosecute any alcohol or drug abuse patient.[facility] Encounter Details Date Type Department Care Team (Late st Contact Info) Description 02/20/2025 Patient Msg Colorectal Surgery [address] [address] Violette Maurer APRN.[facility] [address] [place] [address]. [place] [phone] anorectal manometry ordered. Social History Tobacco Use [...] on filedocumented in this encounter Care Teams Natural Resources Specialist Relationship Specialty Start Date End Date Tyson Fonseca MD PCP - General Family Medicine 11/11/15 Vivian Brady MD [address] [place] [address] Gastroenterology 01/16/25 documented as of this encounter
--- OUTSIDE RECORDS SUMMARY | 2025-05-08 02:05 | XMS_ITS | Encounter Summary ---
Author Organization [employer] tem Address [id number] [address] [place] [address] Care Team Providers Care Electrical Subcontractor Name Role Phone Cisco Blanc Primary Care Provider Encounter Details Date Type Department Care Team (Late st Contact Info) Description 02/14/2024 Orders Only [facility] Internal Medicine - Family Medicine [address] [place] [phone] Ty Burciaga DO [address] [place] [address] Change in bowel habits (Primary Dx) Social [...] Answer Date Recorded Total Score 16 12/09/2023 [facility] of Occupat ional Health - [...] to fllow up with [facility] Dc documented as of this encounter Visit Diagnoses Diagnosis Change in bowel habits- Primary Other symptoms involving digestive system documented in this encounter Additional Health Concerns Assessment Noted Time PHQ-9 Depression Total Score: 16 024 8:43 AM EDT documented as of this encounter Care Teams Electrical Subcontractor Relationship Specialty Start Date End Date Cisco Blanc DO [address] [facility] [place] [address] PCP - General Family Medicine 12/19/19 documented as of this encounter
--- OUTSIDE RECORDS SUMMARY | 2025-05-08 02:05 | XMS_ITS | Encounter Summary ---
Author Organization [employer] tem Address [id number] [address] [place] [address] Care Team Providers Care Master Black Belt Name Role Phone Cisco Blanc Primary Care Provider Encounter Details Date Type Department Care Team (Late st Contact Info) Description 03/30/2023 Orders Only [facility] Internal Medicine - Family Medicine [address] [place] [address] Ref Prov, [place] [address] Social History Tobacco Use Types Packs/Day Years [...] How often do you attend catholic or christian serv ices? Never 08/01/2022 Active [...] Answer Date Recorded Total Score 0 02/17/2023 [facility] of Occupat ional Health - Occupational Stress [...] family, patient needs to fllow up with [facility] upon Dc documented as of this encounter Visit Diagnoses Not on filedocumented in this encounter Additional Health Concerns Assessment Noted Time PHQ-9 Depression Total Score: 0 02/18/20 23 3:23 PM EDT documented as of this encounter Care Teams Master Black Belt Relationship Specialty Start Date End Date Cisco Blanc DO [address], [facility] [place] [address] PCP - General Family Medicine 12/19/19 documented as of this encounter
--- OUTSIDE RECORDS SUMMARY | 2025-05-08 02:05 | XMS_ITS | Encounter Summary ---
Author Organization [employer] tem Address [facility] [place] [place]-[id number] [address] [place] [address] Care Team Providers Care Tax Accounting Manager Name Role Phone Cisco Blanc DO Primary Care Provider [phone] Reason for Visit * Reason Comments Med Refill Encounter Details Date Type Department Care Team (Late st Contact Info) Description 09/15/2022 Refill [facility] Internal Medicine - Family Medicine [address] [place] [address] Cisco Blanc DO [address], [facility] [place] [address] Social History Tobacco Use Types Packs/Day Years [...] How often do you attend episcopalian or spiritism serv ices? Never 08/01/2022 Active [...] Total Score 9 08/01/2022 [facility] of Occupat ional Health - Occupational [...] documented as of this encounter Care Teams Tax Accounting Manager Relationship Specialty Start Date End Date Cisco Blanc DO [address] [facility], [place] [address] PCP - General Family Medicine 12/19/19 documented as of this encounter
--- OUTSIDE RECORDS SUMMARY | 2025-05-08 02:05 | XMS_ITS | Encounter Summary ---
Author Organization [email or web address] tem Address [id number] [address] [place] [address] Care Team Providers Care Replenishment Specialist Name Role Phone Cisco Blanc Primary Care Provider Encounter Details Date Type Department Care Team (Late st Contact Info) Description 02/25/2023 Orders Only [facility] Internal Medicine - Family Medicine [address] [place] [phone] External, Scanning Provider Social History Tobacco Use [...] How often do you attend taoist or religion serv ices? Never 08/01/2022 Active [...] Answer Date Recorded Total Score 0 02/17/2023 [facility] [place] of Occupat ional Health - Occupational Stress [...] Do you need help finding a [facility] and/or a training program? [...] family, patient needs to fllow up with [facility] Dc documented as of [...] documented as of this encounter Care Teams Replenishment Specialist Relationship Specialty Start Date End Date Cisco Blanc DO [address] [place] [address] PCP - General Family Medicine 12/19/19 documented as of this encounter
--- OUTSIDE RECORDS SUMMARY | 2025-05-08 02:05 | XMS_ITS | Encounter Summary ---
Author Organization [employer] tem Address [id number] [address] [place] [address] Care Team Providers Care Assembler Gold Frame Name Role Phone Cisco Blanc Primary Care Provider Encounter Details Date Type Department Care Team (Late st Contact Info) Description 02/13/2024 Orders Only [facility] Internal Medicine - Family Medicine [address] [place] [phone] Ty Burciaga DO [address] [place] [address] Change in bowel habits (Primary Dx) Social [...] How often do you attend islam or yarsani serv ices? Never 08/01/2022 Active Member of [...] Answer Date Recorded Total Score 16 12/09/2023 [facility] of Occupat ional Health - Occupational [...] Recorded Do you need help finding a [employer] career center and/or a training program? No [...] to fllow up with [facility] Dc documented as of this encounter Visit Diagnoses Diagnosis Change in bowel habits- Primary Other symptoms involving digestive system documented in this encounter Additional Health Concerns Assessment Noted Time PHQ-9 Depression Total Score: 16 024 8:43 AM EDT documented as of this encounter Care Teams Assembler Gold Frame Relationship Specialty Start Date End Date Cisco Blanc DO [address] [facility] [place] [address] PCP - General Family Medicine 12/19/19 documented as of this encounter
--- OUTSIDE RECORDS SUMMARY | 2025-05-08 02:05 | XMS_ITS | Encounter Summary ---
Author Organization [employer] tem Address [id number] [address] [place] [address] Care Team Providers Care Director Craft Center Name Role Phone Csico Blanc Primary Care Provider Encounter Details Date Type Department Care Team (Late st Contact Info) Description 02/06/2024 Orders Only [facility] Internal Medicine - Family Medicine [address] [place] [phone] Ty Burciaga DO [address] [place] [address] Change in bowel habits (Primary Dx) Social [...] How often do you attend faith or yazdanism serv ices? Never 08/01/2022 Active [...] Answer Date Recorded Total Score 16 12/09/2023 [facility] of Occupat [...] Recorded Do you need help finding a [facility] career center and/or a training program? [...] family, patient needs to fllow up with [facility] Dc documented as of this encounter Visit Diagnoses Diagnosis Change in bowel habits- Primary Other symptoms involving digestive system documented in this encounter Additional Health Concerns Assessment Noted Time PHQ-9 Depression Total Score: 16 024 8:43 AM EDT documented as of this encounter Care Teams Director Craft Center Relationship Specialty Start Date End Date Cisco Blanc DO [address] [facility] [place] [address] PCP - General Family Medicine 12/19/19 documented as of this encounter
--- OUTSIDE RECORDS SUMMARY | 2025-05-08 02:05 | XMS_ITS | Encounter Summary ---
Author Organization [employer] tem Address [facility] [place] [facility] [id number] [address] [place] [address] Care Team Providers Care Phlebotomy Program Coordinator Name Role Phone Cisco Blanc DO Primary Care Provider [phone] Reason for Visit * Reason Comments Med Refill Encounter Details Date Type Department Care Team (Late st Contact Info) Description 01/18/2023 Refill [facility] Internal Medicine - Family Medicine [address] [place] [address] Cisco Blanc DO [address], [place] [address] Social History Tobacco Use Types Packs/Day Years [...] How often do you attend hoahaoism or scientology serv ices? Never 08/01/2022 Active [...] Answer Date Recorded Total Score 9 08/01/2022 [facility] of Occupat ional [...] to fllow up with [facility] upon Dc documented as of this encounter Visit Diagnoses Not on filedocumented in this encounter Additional Health Concerns Assessment Noted Time PHQ-9 Depression Total Score: 9 08/01/20 22 6:00 PM EST documented as of this encounter Care Teams Phlebotomy Program Coordinator Relationship Specialty Start Date End Date Cisco Blanc DO [address] [facility], [place] [address] PCP - General Family Medicine 12/19/19 documented as of this encounter
--- OUTSIDE RECORDS SUMMARY | 2025-05-08 02:05 | XMS_ITS | Clinical Summary ---
Author Organization [employer] tem Address [id number] [address] [place] [address] Care Team Providers Care Personal Financial Counselor Name Role Phone Carlos AlbertoCisco tang Primary [...] by mouth nightly as needed for anxiety. 5 Active dicyclomine (BENTYL) 10 mg capsuleIndicatio ns:Irritable bowel syndrome with both constipation and diarrhea Take 1 capsule (10 mg total) by mouth every 6 (six) hours as needed (cramping). 56 capsule 5 Active hydrocortisone-p ramoxine (ANALPRAM-HC) 1-1 % rectal cream Insert 1 Application into the rectum in the morning and 1 Application before bedtime. 30 g 5 Active cloNIDine (CATAPRES) 0.1 mg tablet Take 1 tablet (0.1 mg total) by mouth in the morning and 1 tablet (0.1 mg total) before bedtime. 60 tablet 1 5 Active polyethylene glycol (MIRALAX) 17 gram/dose powder Take 17 g by mouth in the morning. 510 g 5 5 Active wheat dextrin (BENEFIBER SUGAR FREE, DEXTRIN,) 3 gram/4 gram powder Take 3 g by mouth in the morning. 152 g 5 5 Active Active Problems Problem Noted Date Diagnosed Date [...] Encounters Date Type Department Care Team Description 04/11/2025 Orders Only [facility] Internal Medicine - Family Medicine [address] [place] [address] Ref Prov, Not In System 03/22/2025 Refill [facility] Internal Medicine - Family Medicine [address] [place] [address] Cisco Blanc, Anxiety 02/06/2025 Refill [facility] Medicine - Family Medicine [address] [place] [address] Cisco Blanc, from Last 3 Months Immunizations [...] week 08/01/2022 How often do you attend tenriism or sikhism serv ices? Never 08/01/2022 Active Member of [...] Answer Date Recorded Total Score 21 12/10/2024 [facility] of Occupat ional Health - Occupational Stress [...] Recorded Do you need help finding a [facility] career center and/or a training program? [...] (2 - Td or Tdap) 10/28/2023 10/27/2013 COVID-19 Vaccine (4 - season) 2025 06/20/2021, 12/08/2020, 11/18/2020 Influenza Vaccine 04/22/2025 06/20/2021, 04/06/2020, 06/07/2019 Adult BMI Screening 12/10/2025 12/10/2024 Depression Screening 12/10/2025 12/10/2024 Tobacco Screening 12/10/2025 [...] to fllow up with [facility] Medical Devices Not on file Procedures Procedure Name Priority Date/Time Associated Diagnosis Comments COMPREHENSIVE METABOLIC PANEL Routine 03/18/2025 2:19 PM EDT CBC W AUTO DIFF BLD Routine 03/18/2025 1 2:31 PM EDT PROVATION COLONOSCOPY Routine 02/17/2024 1:59 PM EDT from Last 3 Months or Most Recently Relevant to Health Maintenance Results * Comprehensive metabolic panel (03/18/2025 2:19 PM EDT) Blood Venous blood / Unknown us Not In System Ref Prov LAB BLOOD ORDERABLES Margy l Result Performing Organization Address City/[facility] Co de Phone Number MANUALLY TRANSCRIBED RESULTS * CBC W Auto Diff Bld (03/18/2025 12:31 PM EDT) us Not In System Ref Prov LAB BLOOD ORDERABLES Margy l Result Performing Organization Address [facility] de Phone Number MANUALLY TRANSCRIBED RESULTS * Colonoscopy Report (02/17/2024 1:59 PM EDT) [...] Personal/Family Self 1970 [address] [place] [address] [facility] MEDICA[facility] * Guarantor: [id number] Account Type Relation to Patient Date of Phone Billing [place] [address] * Guarantor: MILKA CHRISTY Account Type Relation [...] 1:54 PM 01/17/2018 3:11 PM Care Teams Personal Financial Counselor Relationship Specialty Start Date End Date Cisco Blanc DO [address], [place] [address] PCP - General Family Medicine 12/19/19
--- OUTSIDE RECORDS SUMMARY | 2025-05-08 02:05 | XMS_ITS | Encounter Summary ---
Author Organization [employer] tem Address [id number] [address] [place] [address] Care Team Providers Care Button Tacker Name Role Phone Cisco Blanc Primary Care Provider Encounter Details Date Type Department Care Team (Late st Contact Info) Description 11/23/2023 Orders Only [facility] Internal Medicine - Family Medicine [address] [place] [address] External, Scanning Provider Social History Tobacco Use [...] How often do you attend anglican or restorationism serv ices? Never 08/01/2022 Active Member of [...] Answer Date Recorded Total Score 0 02/17/2023 [facility] of Occupat ional Health - Occupational Stress [...] Recorded Do you need help finding a [facility] career [facility] and/or a training [...] patient needs to fllow up with [facility] Dc documented as of [...] documented as of this encounter Care Teams Button Tacker Relationship Specialty Start Date End Date Cisco Blanc DO [address], [place] [address] PCP - General Family Medicine 12/19/19 documented as of this encounter
--- OUTSIDE RECORDS SUMMARY | 2025-05-08 02:05 | XMS_ITS | Encounter Summary ---
Author Organization [employer] Address [id number] [address] [place] [address] Care Team Providers Care Phys Assistant Name Role Phone Cisco Blanc Primary Care Provider Encounter Details Date Type Department Care Team (Late st Contact Info) Description 04/11/2025 Orders Only [facility] Medicine - Family Medicine [address] [place] [address] Ref Prov, [place] [address] Social History Tobacco Use Types Packs/Day Years Used Date Smoking Tobacco: Former Cigarettes 1 34 1 09/23/1984 - 12/20/2018 Passive Smoke Exposure: Past Smokeless Tobacco: Never Comments:vape, today Alcohol Use Standard Drinks/Week Comments Yes 0 (1 standard drink = 0.6 oz pur e alcohol) Occasional C Utilities Answer Date Recorded In the past 12 months has [employer], gas, oil, or water [employer] threatened to shut off services in your [...] How often do you attend christian or baptism serv ices? Never 08/01/2022 Active [...] 12/06/2023 PHQ-2 Answer Date Recorded Total Score 12/10/2024 [facility] of Occupat ional [...] [facility] with [facility] documented as of this encounter Procedures Procedure Name Priority Date/Time Associated Diagnosis Comments COMPREHENSIVE METABOLIC PANEL Routine 03/18/2025 2:19 PM EDT CBC W AUTO DIFF BLD Routine 03/18/2025 1 2:31 PM EDT documented in this encounter Results * Comprehensive metabolic panel (03/18/2025 2:19 PM EDT) Blood Venous blood / Unknown us Not In System Ref Prov LAB BLOOD ORDERABLES Margy l Result Performing Organization Address City/[facility] Co de Phone Number MANUALLY TRANSCRIBED RESULTS * CBC W Auto Diff Bld (03/18/2025 12:31 PM EDT) us Not In System Ref Prov LAB BLOOD ORDERABLES Magry l Result Performing Organization Address City/[facility] Co de Phone Number MANUALLY TRANSCRIBED RESULTS documented in this encounter Visit Diagnoses Not on filedocumented in this encounter Additional Health Concerns Assessment Noted Time PHQ-9 Depression Total Score: 21 025 1:04 PM EDT documented as of this encounter Care Teams Phys Assistant Relationship Specialty Start Date End Date Furlong, Cisco G, DO [address] [place] [address] PCP - General Family Medicine 12/19/19 documented as of this encounter
--- OUTSIDE RECORDS SUMMARY | 2025-05-08 02:05 | XMS_ITS | Encounter Summary ---
Author Organization [employer] tem Address [id number] [address] [place] [address] Care Team Providers Care Box Lining Machine Operator Name Role Phone Cisco Blanc Primary Care Provider Encounter Details Date Type Department Care Team (Late st Contact Info) Description 03/11/2023 Orders Only [facility] - Family Medicine [address] [place] [address] External, Scanning Provider Social History Tobacco Use [...] week 08/01/2022 How often do you attend baptist or bahai serv ices? Never 08/01/2022 Active [...] Answer Date Recorded Total Score 0 02/17/2023 [facility] of Occupat ional Health - Occupational Stress [...] Recorded Do you need help finding a [facility] career center and/or a training program? No [...] family, patient needs to fllow up with [facility] Dc documented as of this [...] documented as of this encounter Care Teams Box Lining Machine Operator Relationship Specialty Start Date End Date Cisco Blanc DO [address] [facility], [place] [address] PCP - General Family Medicine 12/19/19 documented as of this encounter
--- OUTSIDE RECORDS SUMMARY | 2025-05-08 02:05 | XMS_ITS | Clinical Summary ---
Author Organization [facility] Healthcare Address [address] [place] [address] Care Team Providers Care Animal Care Assistant Name Role Phone Unavailable Primary Care Provider [...]
--- OUTSIDE RECORDS SUMMARY | 2025-05-08 02:05 | XMS_ITS | Encounter Summary ---
Author Organization [employer] tem Address [id number] [address] [place] [address] Care Team Providers Care Embroidery Cutter Name Role Phone Cisco Blanc DO Primary Care Provider [phone] Reason for Visit * Reason Comments Med Refill Encounter Details Date Type Department Care Team (Late st Contact Info) Description 02/15/2023 Refill [facility] - Family Medicine [address] [place] [address] Cisco Blanc DO [address], [facility] [place] [address] Social History Tobacco Use Types Packs/Day Years [...] How often do you attend islam or jehovah's witness serv ices? Never 08/01/2022 Active Member of [...] Answer Date Recorded Total Score 0 02/17/2023 [facility] of Occupat ional Health - [...] Recorded Do you need help finding a [facility] career [facility] and/or a training program? [...] family, patient needs to fllow up with [facility] Dc documented as of this encounter Visit Diagnoses Not on filedocumented in this encounter Additional Health Concerns Assessment Noted Time PHQ-9 Depression Total Score: 9 08/01/20 22 6:00 PM EST documented as of this encounter Care Teams Embroidery Cutter Relationship Specialty Start Date End Date Cisco Blanc DO [address], [facility] [place] [address] PCP - General Family Medicine 12/19/19 documented as of this encounter
--- OUTSIDE RECORDS SUMMARY | 2025-05-08 02:05 | XMS_ITS | Encounter Summary ---
Author Organization [employer] tem Address [id number] [address] [place] [address] Care Team Providers Care Curling Machine Operator Name Role Phone Cisco Blanc Primary Care Provider Encounter Details Date Type Department Care Team (Late st Contact Info) Description 02/24/2023 Orders Only [facility] - Family Medicine [address] [place] [phone] External, Scanning Provider Social History Tobacco Use [...] How often do you attend sikh or jewish serv ices? Never 08/01/2022 Active [...] Answer Date Recorded Total Score 0 02/17/2023 [facility] [employer] [place] of Occupat ional Health - Occupational Stress [...] Recorded Do you need help finding a [facility] and/or a training [...] patient needs to fllow up with [facility] Dc documented as of this encounter [...] documented as of this encounter Care Teams Curling Machine Operator Relationship Specialty Start Date End Date Cisco Blanc DO [address] [facility] [place] [address] PCP - General Family Medicine 12/19/19 documented as of this encounter
--- OUTSIDE RECORDS SUMMARY | 2025-05-08 02:05 | XMS_ITS | Encounter Summary ---
Author Organization [employer] tem Address [id number] [address] [place] [address] Care Team Providers Care Mailroom Associate Name Role Phone Cisco Blanc Primary Care Provider Encounter Details Date Type Department Care Team (Late st Contact Info) Description 05/30/2024 Orders Only [facility] - Family Medicine [address] [place] [address] Ref Prov, [place] [address] Social History Tobacco Use Types Packs/Day Years [...] How often do you attend taoism or yarsanism serv ices? Never 08/01/2022 Active [...] Answer Date Recorded Total Score 21 03/15/2024 [facility] Questionnaire Answer Date [...] Recorded Do you need help finding a [facility] and/or a [...] documented as of this encounter Care Teams Mailroom Associate Relationship Specialty Start Date End Date Cisco Blanc DO [address], [place] [address] PCP - General Family Medicine 12/19/19 documented as of this encounter
--- OUTSIDE RECORDS SUMMARY | 2025-05-08 02:05 | XMS_ITS | Encounter Summary ---
Author Organization [employer] Address [id number] [address] [place] [address] Care Team Providers Care Profile Stitching Machine Operator Name Role Phone Cisco Blanc Primary Care Provider Encounter Details Date Type Department Care Team (Late st Contact Info) Description 09/06/2024 Orders Only [facility] - Family Medicine [address] [place] [address] Ref Prov, [place] [address] Social History Tobacco Use Types Packs/Day Years [...] How often do you attend sabianist or denominational serv ices? Never 08/01/2022 Active [...] Answer Date Recorded Total Score 21 03/15/2024 [facility] - Occupational Stress Questionnaire Answer Date [...] family, patient needs to fllow up with [facility] documented as of this encounter Procedures [...] documented as of this encounter Care Teams Profile Stitching Machine Operator Relationship Specialty Start Date End Date Cisco Blanc DO [address], [place] [address] PCP - General Family Medicine 12/19/19 documented as of this encounter
--- OUTSIDE RECORDS SUMMARY | 2025-05-08 02:05 | XMS_ITS | Clinical Summary ---
Author Organization [facility] Address [address] [place] [address] Care Team Providers Care Assembler Surgical Garment Name Role Phone Tyson Fonseca MD Primary Care Provider [phone] Vivian Brady MD Unavailable [phone] Allergies No known active allergies Medications [...] Description 04/03/2025 Patient Msg Colorectal Surgery [address] [phone] Lydia Drake PA-C Follow up from virtual visit 04/03/2025 Patient Update Colorectal Surgery [address] [address] Lydia Drake PA-C Pelvic Floor Conference 04/02/2025 11:30 AM EDT [facility] Colorectal Surgery [address] [phone] Lydia Drake PA-C Constipation, unspecified constipation type (Primary Dx); Rectal spasm; Pelvic floor dysfunction; Anxiety; Distressed about housing issues; Orthostatic dizziness 03/26/2025 Refill Colorectal Surgery [address] [address] Lydia Drake PA-C Refill Request 03/21/2025 Travel 03/08/2025 Abstract Colorectal Surgery [address] [address] Suma Navarrete DO 03/07/2025 Telephone Colorectal Surgery [address] [address] Lydia Drake PA-C Patient Update 03/01/2025 Patient Msg Colorectal Surgery [address] [address] Lydia Drake PA-C Follow up from visit 02/28/2025 1:00 PM EDT Office Visit Colorectal Surgery [address] [phone] Lydia Drake PA-C Pelvic floor dysfunction (Primary Dx); Rectal spasm; Constipation, unspecified constipation type 02/28/2025 12:30 PM EDT Nurse Visit Colorectal Surgery [address] [phone] Sahil Bergeron RN Pelvic floor dysfunction 02/20/2025 Patient Ms Colorectal Surgery [address] [place] [address] Violette Maurer APRN.PROCESS LABORATORY SPECIALIST anorectal manometry ordered. 02/20/2025 Orders Only Colorectal Surgery [address] [phone] Violette Maurer APRN.LIDA Pelvic floor dysfunction (Primary Dx) 02/15/2025 Patient Ms General Surgery [address] [place] [address] Provider, [facility] Follow up from phone call 02/15/2025 Travel 02/11/2025 Telephone [address]orectal Surgery [address] [phone] Ashley Hayward MD Appointment (Left vm we received referral for botox injections) from Last 3 Months Social History Tobacco Use Types Packs/Day Years Used Date Smoking Tobacco: Never Assessed Area Deprivation Index Answer Date Juan Carlos rded National Score (1-100), lower number is lower ri sk 93 02/28/2025 State Score (1-10), lower number is lower risk 9 02/28/2025 Data from: https://www.neighborhoodatlas.medicine.[facility].edu/. Last address used for calculation [address] [...] Name Priority Date/Time Associated Diagnosis Comments ADULT [place] ANORECTAL MANOMETRY Routine 02/28/2025 Pelvic floor dysfunction PT ED PATIENT INFORMATION 02/12/2025 from Last 3 Months Results * ADULT [place] ANORECTAL MANOMETRY (02/28/2025) Anatomical Region Laterality Modality Other Narrative 02/28/2025 PATIENT NAME: Harlan Arnold PATIENT IDENTITY VERIFICATION COMPLETED USING TWO (2) IDENTIFIERS: Name and Date of confirmed by patient verbally. Referred by: Violette Maurer APRN.CNP Reason for testing: constipation Ileoanal pouch: No SENSITIVE EXAMINATION CONSENT: The sensitive examination was discussed with the Patient or Patient's Authorized Plastic Cutter. As applicable, any other physician, advance practice provider, medical student, or other health professional student that will be observing or involved in the sensitive examination for educational or training purposes was discussed with the Patient or Authorized Plastic Cutter. The Patient or Authorized Plastic Cutter has agreed to proceed with the sensitive examination. Wharf Labourer offered:Patient accepts, visit chaperoned by Antonieta PAYNE,RN [...] Colon & Rectal Surgery us Violette Maurer APRN.PROCESS LABORATORY SPECIALIST DIGESTIVE DISEASE Final Result * PT ED [...] Personal/Family Self 1970 [address] [place] [address] [facility] Care Teams Assembler Surgical Garment Relationship Specialty Start Date End Date Tyson Fonseca MD PCP - General Family Medicine 11/11/15 Vivian Brady MD [address] [place] [address] Gastroenterology 01/16/25
--- OUTSIDE RECORDS SUMMARY | 2025-05-08 02:06 | XMS_ITS | Encounter Summary ---
Author Organization [employer] Address [id number] [address] [place] [address] Care Team Providers Care Fashion Designer Name Role Phone Cisco Blanc Primary Care Provider Encounter Details Date Type Department Care Team (Late st Contact Info) Description 03/13/2024 Orders Only [facility] - Family Medicine [address] [place] [address] Ref Prov, [place] [address] Social History Tobacco Use Types Packs/Day Years [...] week 08/01/2022 How often do you attend samaritan or faith serv ices? Never 08/01/2022 Active [...] Answer Date Recorded Total Score 21 03/15/2024 [facility] of Occupat [facility] - Occupational Stress Questionnaire Answer [...] Recorded Do you need help finding a [facility] and/or a training [...] family, patient needs to fllow up with [facility] documented as of this encounter [...] documented as of this encounter Care Teams Fashion Designer Relationship Specialty Start Date End Date Cisco Blanc DO [address] [facility], [place] [address] PCP - General Family Medicine 12/19/19 documented as of this encounter
--- OUTSIDE RECORDS SUMMARY | 2025-05-08 02:06 | XMS_ITS | Encounter Summary ---
Author Organization [employer] tem Address [id number] [address] [place] [address] Care Team Providers Care Urban Sociologist Name Role Phone Cisco Blanc DO Primary Care Provider Encounter Details Date Type Department Care Team (Late st Contact Info) Description 03/09/2024 Orders Only [facility] - Family Medicine [address] [place] [phone] Cisco Blanc DO [address], [facility] [address] Irritable bowel syndrome with constipation (Primary Dx); [...] week 08/01/2022 How often do you attend sabianism or mormon serv ices? Never 08/01/2022 Active Member of [...] Answer Date Recorded Total Score 16 12/09/2023 [facility] [place] of Occupat ional Health - Occupational Stress [...] Do you need help finding a [facility] career center and/or a training program? [...] family, patient needs to fllow up with [facility] Dc documented as of this encounter Visit Diagnoses Diagnosis Irritable bowel syndrome with constipation- Primary Irritable bowel syndrome Change in bowel habits Other symptoms involving digestive system documented in this encounter Additional Health Concerns Assessment Noted Time PHQ-9 Depression Total Score: 16 024 8:43 AM EDT documented as of this encounter Care Teams Urban Sociologist Relationship Specialty Start Date End Date Cisco Blanc DO [address] [facility] [address] PCP - General Family Medicine 12/19/19 documented as of this encounter
--- OUTSIDE RECORDS SUMMARY | 2025-05-08 02:06 | XMS_ITS | Encounter Summary ---
Author Organization [employer] tem Address [id number] [address] [place] [address] Care Team Providers Care Poultry Trimmer Name Role Phone Cisco Blanc Primary Care Provider Encounter Details Date Type Department Care Team (Late st Contact Info) Description 03/19/2024 Orders Only [facility] - Family Medicine [address] [place] [phone] Ty Burciaga DO [address] [place] [address] Rectal fissure (Primary Dx) Social History Tobacco [...] How often do you attend adventist or jainism serv ices? Never 08/01/2022 Active Member of [...] Answer Date Recorded Total Score 21 03/15/2024 [facility] of Occupat ional Health [...] Recorded Do you need help finding a [facility] career center and/or a training program? [...] to [facility] with [facility] documented as of this encounter Visit Diagnoses Diagnosis Rectal fissure- Primary Anal fissure documented in this encounter Additional Health Concerns Assessment Noted Time PHQ-9 Depression Total Score: 21 024 4:01 PM EDT documented as of this encounter Care Teams Poultry Trimmer Relationship Specialty Start Date End Date Cisco Blanc DO [address] [facility] [place] [address] PCP - General Family Medicine 12/19/19 documented as of this encounter
--- OUTSIDE RECORDS SUMMARY | 2025-05-08 02:06 | XMS_ITS | Encounter Summary ---
Author Organization [employer] Address [id number] [address] [place] [address] Care Team Providers Care Inpatient Care Manager Rn Name Role Phone Cisco Blanc Primary Care Provider Encounter Details Date Type Department Care Team (Late st Contact Info) Description 06/01/2024 Orders Only [facility] - Family Medicine [address] [place] [address] Ref Prov, [place] [address] Social History Tobacco Use Types Packs/Day Years [...] How often do you attend mandaeism or jehovah's witness serv ices? Never 08/01/2022 [...] Answer Date Recorded Total Score 21 03/15/2024 [facility] - Occupational Stress Questionnaire Answer Date [...] Recorded Do you need help finding a [facility] and/or a training program? [...] [facility] documented as of this encounter Procedures Procedure [...] documented as of this encounter Care Teams Inpatient Care Manager Rn Relationship Specialty Start Date End Date Cisco Blanc DO [address] [facility], [place] [address] PCP - General Family Medicine 12/19/19 documented as of this encounter
--- OUTSIDE RECORDS SUMMARY | 2025-05-08 02:06 | XMS_ITS | Encounter Summary ---
Author Organization [employer] Address [id number] [address] [place] [address] Care Team Providers Care Transition Rn Name Role Phone Cisco Blanc Primary Care Provider Encounter Details Date Type Department Care Team (Late st Contact Info) Description 04/03/2024 Orders Only [facility] - Family Medicine [address] [place] [address] Ref Prov, [place] [address] Social History Tobacco Use Types Packs/Day Years [...] week 08/01/2022 How often do you attend yarsanism or mormon serv ices? Never 08/01/2022 Active [...] Answer Date Recorded Total Score 21 03/15/2024 [facility] of Occupat [facility] - Occupational Stress Questionnaire Answer [...] Recorded Do you need help finding a [facility] career [facility] and/or a training [...] patient needs to fllow up with [facility] documented as of this encounter Procedures [...] documented as of this encounter Care Teams Transition Rn Relationship Specialty Start Date End Date Cisco Blanc DO [address] [facility], [place] [address] PCP - General Family Medicine 12/19/19 documented as of this encounter
--- OUTSIDE RECORDS SUMMARY | 2025-05-08 02:06 | XMS_ITS | Encounter Summary ---
Author Organization [employer] Address [id number] [address] [place] [address] Care Team Providers Care Web Producer Name Role Phone Cisco Blanc DO Primary Care Provider [phone] Reason for Visit * Reason Comments Med Refill Encounter Details Date Type Department Care Team (Late st Contact Info) Description 06/18/2022 Refill [facility] Internal Medicine - Family Medicine [address] [place] [address] Cisco Blanc DO [address], [facility] [place] [address] Social History Tobacco Use Types Packs/Day Years [...] on filedocumented in this encounter Care Teams Web Producer Relationship Specialty Start Date End Date Cisco Blanc DO [address] [facility], [place] [address] PCP - General Family Medicine 12/19/19 documented as of this encounter
--- OUTSIDE RECORDS SUMMARY | 2025-05-08 02:06 | XMS_ITS | Encounter Summary ---
Author Organization [employer] Address [id number] [address] [place] [address] Care Team Providers Care Hand Outside Cutter Name Role Phone Cisco Blanc Primary Care Provider Encounter Details Date Type Department Care Team (Late st Contact Info) Description 03/12/2024 Orders Only [facility] - Family Medicine [address] [place] [address] Ref Prov, [place] [address] Social History Tobacco Use Types Packs/Day Years [...] How often do you attend jain or congregational serv ices? Never 08/01/2022 Active [...] Answer Date Recorded Total Score 21 03/15/2024 [facility] of Occupat [facility] - Occupational Stress Questionnaire Answer Date [...] Recorded Do you need help finding a [facility] career [facility] and/or a training program? [...] family, patient needs to fllow up with [facility] documented as of this encounter Procedures Procedure [...] documented as of this encounter Care Teams Hand Outside Cutter Relationship Specialty Start Date End Date Cisco Blanc DO [address], [place] [address] PCP - General Family Medicine 12/19/19 documented as of this encounter
--- OUTSIDE RECORDS SUMMARY | 2025-05-08 02:06 | XMS_ITS | Encounter Summary ---
Author Organization [employer] Address [id number] [address] [place] [address] Care Team Providers Care Career Center Director Name Role Phone Cisco Blanc DO Primary Care Provider [phone] Reason for Visit * Reason Comments Med Refill Encounter Details Date Type Department Care Team (Late st Contact Info) Description [facility]/12[facility]2022 [facility] [address] [place] [address] Cisco Blanc DO [address] [facility], [facility] [place] [address] Social History Tobacco Use Types Packs/Day Years [...] on filedocumented in this encounter Care Teams Career Center Director Relationship Specialty Start Date End Date Cisco Blanc DO [address] [facility] [place] [address] PCP - General Family Medicine 12/19/19 documented as of this encounter
--- OUTSIDE RECORDS SUMMARY | 2025-05-08 02:06 | XMS_ITS | Encounter Summary ---
Author Organization [employer] tem Address [id number] [address] [place] [address] Care Team Providers Care Entry Level Civil Engineer Name Role Phone Cisco Blanc Primary Care Provider Encounter Details Date Type Department Care Team (Late st Contact Info) Description 02/20/2024 [facility]phone [facility] [address] [place] [address] Linda Marc CMA Social History Tobacco Use [...] week 08/01/2022 How often do you attend yazidism or bahai serv ices? Never 08/01/2022 Active [...] Answer Date Recorded Total Score 16 12/09/2023 [facility] [place] of Occupat ional Health - Occupational Stress [...] Recorded Do you need help finding a I[employer] al career center and/or a training program? [...] documented as of this encounter Care Teams Entry Level Civil Engineer Relationship Specialty Start Date End Date Cisco Blanc DO [address], [place] [address] PCP - General Family Medicine 12/19/19 documented as of this encounter
--- OUTSIDE RECORDS SUMMARY | 2025-05-08 02:06 | XMS_ITS | Encounter Summary ---
Author Organization [employer] Address [id number] [address] [place] [address] Care Team Providers Care Label Sewer Name Role Phone Cisco Blanc DO Primary Care Provider [phone] Reason for Visit * Reason Comments Med Refill Encounter Details Date Type Department Care Team (Late st Contact Info) Description 05/12/2022 Refill [facility] - Family Medicine [address] [place] [address] Michelle Francis APRN-CNP [address] [place] [address] Social History Tobacco Use Types Packs/Day Years [...] on filedocumented in this encounter Care Teams Label Sewer Relationship Specialty Start Date End Date Cisco Blanc DO [address], [place] [address] PCP - General Family Medicine 12/19/19 documented as of this encounter
--- OUTSIDE RECORDS SUMMARY | 2025-05-08 02:06 | XMS_ITS | Encounter Summary ---
Author Organization [employer] Address [id number] [address] [place] [address] Care Team Providers Care Trader Fixed Income Name Role Phone Cisco Blanc DO Primary Care Provider [phone] Reason for Visit * Reason Comments Med Refill Encounter Details Date Type Department Care Team (Late st Contact Info) Description 04/10/2024 Refill [facility] - Family Medicine [address] [place] [address] Cisco Blanc DO [address], [facility] [place] [address] Social History Tobacco Use Types Packs/Day Years [...] week 08/01/2022 How often do you attend zoroastrianism or latter day serv ices? Never 08/01/2022 [...] Answer Date Recorded Total Score 21 03/15/2024 [facility] of Occupat ional Health [...] Recorded Do you need help finding a [facility] career [facility] and/or a training [...] documented as of this encounter Care Teams Trader Fixed Income Relationship Specialty Start Date End Date Cisco Blanc DO [address] [facility], [facility] [place] [address] PCP - General Family Medicine 12/19/19 documented as of this encounter
--- OUTSIDE RECORDS SUMMARY | 2025-05-08 02:06 | XMS_ITS | Encounter Summary ---
Author Organization [employer] tem Address [id number] [place] [address] Care Team Providers Care Assignment Desk Assistant Name Role Phone Cisco Blanc Primary Care Provider Encounter Details Date Type Department Care Team (Late st Contact Info) Description 05/07/2024 Orders Only [facility] Internal Medicine - Family Medicine [address] [place] [address] Ref Prov, [place] [address] Social History Tobacco Use Types Packs/Day Years [...] How often do you attend anabaptist or sikhism serv ices? Never 08/01/2022 Active [...] Answer Date Recorded Total Score 21 03/15/2024 [facility] - Occupational Stress Questionnaire Answer [...] Do you need help finding a [facility] and/or a training [...] documented as of this encounter Care Teams Assignment Desk Assistant Relationship Specialty Start Date End Date Cisco Blanc DO [address] [facility], [place] [address] PCP - General Family Medicine 12/19/19 documented as of this encounter
--- OUTSIDE RECORDS SUMMARY | 2025-05-08 02:06 | XMS_ITS | Encounter Summary ---
Author Organization [employer] Address [id number] [place] [address] Care Team Providers Care It Business Systems Analyst Name Role Phone Cisco Blanc Primary Care Provider Encounter Details Date Type Department Care Team (Late st Contact Info) Description 03/08/2024 [facility] [address] [place] [phone] Linda Marc CMA Social History Tobacco Use [...] How often do you attend congregation or confucianism serv ices? Never 08/01/2022 Active [...] Answer Date Recorded Total Score 16 12/09/2023 [facility] Occupat ional Health - Occupational Stress [...] Recorded Do you need help finding a [employer] career center and/or a training program? [...] to put a referral in for a [employer].He states his blood pressure is up and struggles with constipation. * Telephone Encounter - Cisco Blanc DO - 03/08/2024 1:44 PM EDT Okay I sent a referral into the naturopathic oncology provider in [place]. He is overdue for a wellness visit [...] documented as of this encounter Care Teams It Business Systems Analyst Relationship Specialty Start Date End Date Cisco Blanc G, DO [address] [facility], [place] [address] PCP - General Family Medicine 12/19/19 documented as of this encounter
--- OUTSIDE RECORDS SUMMARY | 2025-05-08 02:06 | XMS_ITS | Clinical Summary ---
Demographics Address [address] [place] [address] Home Phone Mobile Phone Email Address Preferred Language en Marital Status Single Rastafarian Affiliation Unknown Race White Ethnic Group Not or Lati no Author Organization [facility] Address [address] [place] [address] Care Team Providers Care Credit Controller Name Role Phone Unavailable Primary Care Provider [...]
[2025-05-08 02:07] LABS: Glucose Urine UA NEGATIVE (NEGATIVE)
--- OUTSIDE RECORDS SUMMARY | 2025-05-08 02:07 | XMS_ITS | CCD ---
Author Organization [facility] Care Team Providers Care Certified Court Interpreter Name Role Phone OSINOWO, OSIYEMI Unavailable Unavailable OSINOWO, OSIYEMI Unavailable Unavailable NADERER, TYSON Unavailable Unavailable NADERER, TYSON Unavailable Unavailable Mary King Unavailable Tawnya Andre Unavailable CHAD, DR CISCO Thomason Primary Care Unavailable MARKER, DR JUARES Admitting Unavailable MARKER, DR JUARES Attending Unavailable MARKER, DR JUARES Consulting Unavailable ALANA MORROW Consulting Unavailable DO Cisco Bonilla Primary Care Provider MD Jennyfer Winkler Emergency Provider [phone] CISCO BONILLA Primary Care Physician [phone] JAME De Emergency Provider JENNYFER AUGUSTIN Admitting Unavailable JENNYFER AUGUSTIN Attending Unavailable CISCO BONILLA Primary Care Unavailable JENNYFER AUGUSTIN Attending Unavailable JENNYFER AUGUSTIN Referring Unavailable CISCO BONILLA Primary Care Unavailable CHAD, CISCO Thomason Primary Care Unavailable JEY NORRIS Attending Unavailable Carlos Albertolong Cisco MCLAUGHLIN Primary Care Provider [phone] Cisco Bonilla DO Primary Care Provider CISCO BONILLA Attending Unavailable CISCO BONILLA Referring [...] Primary Care Provider Vivian Brady MD Unavailable [phone] Carlos Albertoclyde Cisco Primary Care Provider Shiv Avina DOin A Attending Provider Ehsan Avina DO A Other Provider Kailyn, [...] Medication Allergies] Propensity to adverse reactions (disorder) [facility] Repository Medications Current Medications Medication Drug [...] constipation, # 10 supp, Refills(s) 0, Pharmacy: for; to (do) #72, 173, cm, 01/24/25 10:35:00 EDT, Height/Length [...] Daily, # 30 tab(s), Refills(s) 4, Pharmacy: for; to (do) #72, 173, cm, 01/24/25 10:35:00 EDT, Height/Length Dosing, 86.3, kg, 01/24/25 10:35:00 EDT, Weight Dosing Start Date: 01/24/25 Status: Ordered Quantity: 30.0 Unit: tab(s) Repeat number: 5 Indications: Other specified disorders of muscle; Outlet dysfunction constipation; Constipation, unspecified; Psychological and behavioral factors associated with disorders or diseases classified elsewhere; Other psychoactive substance dependence, uncomplicated; Abdominal distension (gaseous); polyethylene glycol 3350 67735 mg powder for oral solution (20 sources) [...] bedtime) for constipation, 100 tab(s), Refill(s) 0, for; to (do) #72, 173, cm, 01/24/25 10:35:00 EDT, Height/Length Dosing, 86.3, kg, 01/24/25 10:35:00 EDT, Weight Dosing Start Date: 04/19/25 Status: Ordered Quantity: 100.0 Unit: tab(s) Repeat number: 1 Start: 01-09-2025 Senna 8.6 mg o ral tablet 17.2 mg, 2 tab(s), Oral, Once a day (at bedtime) for constipation, 100 tab(s), Refill(s) 3, [employer] #72, 173, cm, 01/09/25 12:52:00 EDT, [...] 2025 March 19, 2025 11:33am peg 3350-sod sulf,fbgo-qzm-djx 178.7-7.3-0.5 gram recon soln (1 source) Start: 02-13-2024 End: 02-14-2024 peg 3350-sod sulf,qmmq-juu-eyu 178.7-7.3-0.5 gram recon soln Indications: Change in [...] 2Von 03-20-2025 XR foot RT 2V [place] [address] XRay Report Signed Patient: Chai Arnold MR#: [id number] 2 : 1970 Acct:[id number] Age/Sex: 54 / M ADM Date: 03/19/25 Loc: [place] Room: Type[facility] Attending Dr: Ehsan Avina DO Copies [...] Lisa M.D. 03/20/2025 8:49 AM Dictation Location: [place] [address] Transcribed By: [facility] 03/20/25 0849 Dictated By: Dante Lisa II, MD 03/20/25 0849 Signed By: 03/20/25 0849 Normal [facility] Amphetamine Screen Ql (U)Ord ered By: Nirmal Bruno on 03-19-2025 Amphetamines Ql (U) Negative Negative [facility] Barbiturates [Presence] in U rine by Screen methodOrdered By: Nirmal Bruno on 03-19-2025 Barbiturates Screen Ql (U) Negative Negative [facility] Benzodiazepines Screen Ql (U )Ordered By: Nirmal Bruno on 03-19-2025 Benzodiazepines Ql (U) Positive High Negative [facility] Benzoylecgonine [Presence] i n Urine by Screen methodOrdered By: Nirmal Bruno on 03-19-2025 Benzoylecgonine Screen Ql (U) Negative Negative [facility] Cannabinoids [Presence] in U rine by Screen methodOrdered By: Nirmal Bruno on 03-19-2025 Cannabinoids Screen Ql (U) Negative Negative [facility] Comment on above: These are unconfirme d results and should not be used for legal purposes. Drug Cut-Off Concentration: AMPH 1000 ng/mL MAXIMILIAN 200 ng/mL NORA 200 ng/mL COCM 300 ng/mL OP 300 ng/mL PCP 25 ng/mL THC 20 ng/mL Drug Screen,Urineon 03-19-20 25 Amphetamine Screen,Urine Negative Normal Negative [facility] Comment on above: Performed By: #### U RDS #### [address] Barbiturate Screen,Urine Negative Normal Negative [facility] Comment on above: Performed By: #### U RDS #### [place] [address] [place] Benzodiazepines Screen,Urine Positive Normal Negative [facility] Comment on above: Performed By: #### U RDS #### [address] Cannabinoid Screen,Urine Negative Normal Negative [facility] Comment on above: Result Comment: Thes e are unconfirmed results and should not be used for legal purposes. Drug Cut-Off Concentration: AMPH 1000 ng/mL MAXIMILIAN 200 ng/mL NORA 200 ng/mL COCM 300 ng/mL OP 300 ng/mL PCP 25 ng/mL THC 20 ng/mL PERFORMED BY: [place] [address] PATHOLOGIST HASSOCK MAKER BROWN OLIVIER M.D. Performed By: #### U RDS #### [place] [address] [place] Cocaine Screen,Urine Negative Normal Negative [facility] Comment on above: Performed By: #### U RDS #### [facility] [address] Opiate Screen,Urine Positive Normal Negative [facility] Comment on above: Performed By: #### U RDS #### [facility] [address] Phencyclidine Screen,Urine Negative Normal Negative [facility] Comment on above: Performed By: #### U RDS #### [address] Opiates [Presence] in Urine by Screen methodOrdered By: Nirmal Bruno on 03-19-2025 Opiates Screen Ql (U) Positive High Negative [facility] Phencyclidine Screen Ql (U)O rdered By: Nirmal Bruno on 03-19-2025 Phencyclidine Ql (U) Negative Negative [facility] Alanine aminotransferase [En zymatic activity/volume] in Serum or PlasmaOrdered By: Ehsan Avina on 03-18-2025 ALT [Catalytic activity/Vol] 15 U/L [facility] Comment on above: Performed By: #### C MP wRFX A1C, CBC #### [address] Albumin [Mass/volume] in Ser um or Plasma by Bromocresol green (BCG) dye binding methoOrdered By: Ehsan Avina on 03-18-2025 Albumin BCG dye [Mass/Vol] 4.2 g/dL 3.5-5.7 [facility] Alkaline phosphatase [Enzyma tic activity/volume] in Serum or PlasmaOrdered By: Ehsan Avina on 03-18-2025 ALP [Catalytic activity/Vol] 116 U/L High 34-104 [facility] Comment on above: Result Comment: PERF ORMED BY: [place] [address] PATHOLOGIST HASSOCK MAKER BROWN OLIVIER M.D. Performed By: #### C MP wRFX A1C, CBC #### [address] Aspartate aminotransferase [ Enzymatic activity/volume] in Serum or PlasmaOrdered By: Ehsan Avina on 03-18-2025 AST [Catalytic activity/Vol] 20 U/L 13-39 [facility] Comment on above: Performed By: #### C MP wRFX A1C, CBC #### [facility] [address] Basophils [#/volume] in Bloo d by Automated countOrdered By: Ehsan Avina on 03-18-2025 Basophils (Bld) [#/Vol] 0.1 10*3/uL 0.0-0.2 [facility] Comment on above: Result Comment: PERF ORMED BY: [place] [address] PATHOLOGIST HASSOCK MAKER BROWN OLIVIER M.D. Performed By: #### C MP wRFX A1C, CBC #### [address] Basophils/100 leukocytes in Blood by Automated countOrdered By: Ehsan Avina on 03-18-2025 Basophils/100 WBC (Bld) 0.9 % . [facility] Comment on above: Performed By: #### C MP wRFX A1C, CBC #### [address] Bilirubin.total [Mass/volume ] in Serum or PlasmaOrdered By: Ehsan Avina on 03-18-2025 Bilirubin [Mass/Vol] 1.0 mg/dL 0.3-1.0 [facility] Comment on above: Performed By: #### C MP wRFX A1C, CBC #### [facility] [address] CMP with reflex to A1Con Albumin [Mass/Vol] 4.2 g/dL Normal 3.5-5.7 [facility] Comment on above: Performed By: #### C MP wRFX A1C, CBC #### [place] [address] [place] GFR/1.73 sq M.predicted MDRD (S/P/Bld) [Vol rate/Area] mL/min/{1.73_m2} Normal [facility] Comment on above: Performed By: #### C MP wRFX A1C, CBC #### [facility] [address] Calcium [Mass/volume] in Ser um or PlasmaOrdered By: Ehsan Avina on 03-18-2025 Calcium [Mass/Vol] 9.2 mg/dL 8.6-10.3 [facility] Comment on above: Performed By: #### C MP wRFX A1C, CBC #### [facility] [address] Carbon dioxide, total [Moles /volume] in Serum or PlasmaOrdered By: Ehsan Avina on 03-18-2025 CO2 [Moles/Vol] 29.7 mmol/L 21.0-31.0 [facility] Comment on above: Performed By: #### C MP wRFX A1C, CBC #### [facility] [address] Chloride [Moles/volume] in S dereje or PlasmaOrdered By: Ehsan Avina on 03-18-2025 Chloride [Moles/Vol] 102 mmol/L 98-107 [facility] Comment on above: Performed By: #### C MP wRFX A1C, CBC #### [address] Complete Blood Count Auto Di ffon 03-18-2025 Mean Corpuscular HGB Conc 34.4 g/dL Normal 32.5-35.6 [facility] Comment on above: Performed By: #### C MP wRFX A1C, CBC #### [facility] [address] [place] [address] [place] NRBC% 0.1 /100{WBC} Normal 0-0.5 [facility] Comment on above: Performed By: #### C MP wRFX A1C, CBC #### [facility] [address] White Blood Count 6.4 [CFU]/mL Normal 4.1-10.5 [facility] Comment on above: Performed By: #### C MP wRFX A1C, CBC #### [facility] [address] Creatinine [Mass/volume] in Serum or PlasmaOrdered By: Ehsan Avina on 03-18-2025 Creatinine [Mass/Vol] 1.03 mg/dL 0.70-1.30 [facility] Comment on above: Performed By: #### C MP wRFX A1C, CBC #### [facility] [address] ECG 12 lead ECGon 03-18-2025 ECG 12 lead ECG [facility] [place] [address] [place] [address] Electrocardiograph Report Signed Patient: Chai Arnold MR#: [id number] 2 : 1970 Acct:[id number] Age/Sex: 54 / M ADM Date: 03/18/25 Loc: Room: Type: [facility] Attending Dr: Ehsan Avina DO Ordering [...] previous ECGs available Confirmed by Eduardo Torrez ([id number]) on 03/18/2025 1:40:16 PM Referred By: Electronically Signed By: Eduardo Trorez Transcribed By: MUS Signed By Eduardo Torrez MD 03/18/25 1340 Normal [facility] Eosinophils [#/volume] in Bl ood by Automated countOrdered By: Ehsan Avina on 03-18-2025 Eosinophils (Bld) [#/Vol] 0.9 10*3/uL High 0.0-0.45 [facility] Comment on above: Performed By: #### C MP wRFX A1C, CBC #### [facility] [address] [place] [address] [place] Eosinophils/100 leukocytes i n Blood by Automated countOrdered By: Ehsan Avina on 03-18-2025 Eosinophils/100 WBC (Bld) 14.4 % . [facility] Comment on above: Performed By: #### C MP wRFX A1C, CBC #### [facility] [address] [place] [address] Erythrocyte distribution wid th [Ratio] by Automated countOrdered By: Ehsan Avina on 03-18-2025 Erythrocyte distribution width (RBC) [Ratio] 12.9 % 12.0-14.8 [facility] Comment on above: Performed By: #### C MP wRFX A1C, CBC #### [address] Erythrocytes [#/volume] in B lood by Automated countOrdered By: Ehsan Avina on 03-18-2025 RBC (Bld) [#/Vol] 4.85 10*6/uL 3.90-5.60 [facility] Comment on above: Performed By: #### C MP wRFX A1C, CBC #### [facility] [address] [place] [address] [place] Glucose [Mass/volume] in Ser um or PlasmaOrdered By: Ehsan Avina on 03-18-2025 Glucose [Mass/Vol] 88 mg/dL 70-100 [facility] Comment on above: Performed By: #### C MP wRFX A1C, CBC #### [facility] [address] [place] [address] [place] Hematocrit [Volume Fraction] of Blood by Automated countOrdered By: Ehsan Avina on 03-18-2025 Hematocrit (Bld) [Volume fraction] 46.4 % 38.8-50.0 [facility] Comment on above: Performed By: #### C MP wRFX A1C, CBC #### [facility] [address] [place] [address] [place] Hemoglobin [Mass/volume] in BloodOrdered By: Ehsan Avina on 03-18-2025 Hemoglobin (Bld) [Mass/Vol] 16.0 g/dL 13.0-17.0 [facility] Comment on above: Performed By: #### C MP wRFX A1C, CBC #### [facility] [address] Leukocytes [#/volume] correc ernst for nucleated erythrocytes in Blood by Automated counOrdered By: Ehsan Avina on 03-18-2025 WBC corrected for nucl RBC Auto (Bld) [#/Vol] 6.4 10*3/uL 4.1-10.5 [facility] Leukocytes [#/volume] in Blo od by Automated countOrdered By: Ehsan Avina on 03-18-2025 WBC (Bld) [#/Vol] 6.4 10*3/uL 4.1-10.5 [facility] Comment on above: Performed By: #### C MP wRFX A1C, CBC #### [facility] [address] [place] [address] [place] Lymphocytes [#/volume] in Bl ood by Automated countOrdered By: Ehsan Avina on 03-18-2025 Lymphocytes (Bld) [#/Vol] 1.2 10*3/uL 1.00-4.8 [facility] Comment on above: Performed By: #### C MP wRFX A1C, CBC #### [address] Lymphocytes/100 leukocytes i n Blood by Automated countOrdered By: Ehsan Avina on 03-18-2025 Lymphocytes/100 WBC (Bld) 18.9 % . [facility] Comment on above: Performed By: #### C MP wRFX A1C, CBC #### [facility] [address] [place] [address] [place] MCH [Entitic mass] by Automa ernst countOrdered By: Ehsan Avina on 03-18-2025 MCH (RBC) [Entitic mass] 32.9 pg 27.5-35.2 [facility] Comment on above: Performed By: #### C MP wRFX A1C, CBC #### [facility] [address] [place] [address] [place] MCHC Auto (RBC) [Mass/Vol]Or dered By: Ehsan Avina on 03-18-2025 MCHC (RBC) [Mass/Vol] 34.4 g/dL 32.5-35.6 [facility] MCV [Entitic volume] by Auto mated countOrdered By: Ehsan Avina on 03-18-2025 MCV (RBC) [Entitic vol] 95.7 fL 83.5-101 F [facility] Comment on above: Performed By: #### C MP wRFX A1C, CBC #### [facility] [address] [place] [address] [place] Monocytes [#/volume] in Bloo d by Automated countOrdered By: Ehsan Avina on 03-18-2025 Monocytes (Bld) [#/Vol] 0.6 10*3/uL 0.0-0.8 [facility] Comment on above: Performed By: #### C MP wRFX A1C, CBC #### [facility] [address] [place] [address] [place] Monocytes/100 leukocytes in Blood by Automated countOrdered By: Ehsan Avina on 03-18-2025 Monocytes/100 WBC (Bld) 9.7 % . F [facility] Comment on above: Performed By: #### C MP wRFX A1C, CBC #### [address] Neutrophils [#/volume] in Bl ood by Automated countOrdered By: Ehsan Avina on 03-18-2025 Neutrophils (Bld) [#/Vol] 3.6 10*3/uL 1.8-7.7 [facility] Comment on above: Performed By: #### C MP wRFX A1C, CBC #### [facility] [address] [place] [address] [place] Neutrophils/100 leukocytes i n Blood by Automated countOrdered By: Ehsan Avina on 03-18-2025 Neutrophils/100 WBC (Bld) 56.1 % . [facility] Comment on above: Performed By: #### C MP wRFX A1C, CBC #### [facility] [address] [place] [address] No Panel InformationOrdered By: Ehsan Avina on 03-18-2025 Estimated GFR (CKD-EPI) > 60.0 mL/Min [facility] Creatinine Clearance (Chem N/A [facility] Nucleated erythrocytes [Pres ence] in Blood by Automated countOrdered By: Ehsan Avina on 03-18-2025 Nucleated RBC Auto Ql (Bld) 0.1 /100{WBC} 0-0.5 [facility] Platelet mean volume [Entiti c volume] in Blood by Automated countOrdered By: Ehsan Avina on 03-18-2025 Platelet mean volume (Bld) [Entitic vol] 8.1 fL 6.6-10.1 [facility] Comment on above: Performed By: #### C MP wRFX A1C, CBC #### [facility] [address] [place] [address] [place] Platelets [#/volume] in Bloo d by Automated countOrdered By: Ehsan Avina on 03-18-2025 Platelets (Bld) [#/Vol] 213 10*3/uL 150-450 [facility] Comment on above: Performed By: #### C MP wRFX A1C, CBC #### [facility] [address] [place] [address] [place] Potassium [Moles/volume] in Serum or PlasmaOrdered By: Ehsan Avina on 03-18-2025 Potassium [Moles/Vol] 4.1 mmol/L 3.5-5.1 [facility] Comment on above: Performed By: #### C MP wRFX A1C, CBC #### [facility] [address] [place] [address] [place] Protein [Mass/volume] in Ser um or PlasmaOrdered By: Ehsan Avina on 03-18-2025 Protein [Mass/Vol] 6.9 g/dL 6.4-8.9 [facility] Comment on above: Performed By: #### C MP wRFX A1C, CBC #### [facility] [address] [place] [address] Serum globulin measurement b y calculation (mass/volume)Ordered By: Ehsan Avina on 03-18-2025 Globulin (S) [Mass/Vol] 2.7 g/dL [facility] Comment on above: Performed By: #### C MP wRFX A1C, CBC #### [facility] [address] [place] [address] Serum or plasma albumin/glob ulin mass ratioOrdered By: Ehsan Avina on 03-18-2025 Albumin/Globulin [Mass ratio] 1.6 {ratio} [facility] Comment on above: Performed By: #### C MP wRFX A1C, CBC #### [facility] [address] [place] [address] Serum or plasma anion gap de terminationOrdered By: Ehsan Avina on 03-18-2025 Anion gap [Moles/Vol] 9.4 mmol/L 6.0-15.0 [facility] Comment on above: Performed By: #### C MP wRFX A1C, CBC #### [facility] [address] [place] [address] Sodium [Moles/volume] in Ser um or PlasmaOrdered By: Ehsan Avina on 03-18-2025 Sodium [Moles/Vol] 137 mmol/L 136-145 [facility] Comment on above: Performed By: #### C MP wRFX A1C, CBC #### [facility] [address] [place] [address] Urea nitrogen [Mass/volume] in Serum or PlasmaOrdered By: Ehsan Avina on 03-18-2025 Urea nitrogen [Mass/Vol] 9 mg/dL 7-25 [facility] Comment on above: Performed By: #### C MP wRFX A1C, CBC #### [facility] [address] [place] [address] X-ray reportOrdered By: Rodney Dawson on 03-13-2025 Study report [facility] [address] [place] [address] XRay Report Signed Patient: Chai Arnold MR#: [id number] : 1970 Acct:[id number] Age/Sex: 54 / M ADM Date: 5 Loc: [facility] Room: Type: REG CLI Attending Dr: Ehsan [...] Dawson M.D. 03/13/2025 10:25 PM Dictation Location: [place] [address] Transcribed By: [facility] 03/13/252224 Dictated By: Garrett Dawson DO 03/13/252220 Signed By: 03/13/252224 [facility] XR foot RT min 3V*on 025 XR foot RT min 3V* [facility] [address] [place] [address] XRay Report Signed Patient: Chai Arnold MR#: [id number] 2 : 1970 Acct:[id number] Age/Sex: 54 / M ADM Date: 03/13/25 Loc: [facility] Room: Type: REG CLI Attending Dr: Ehsan [...] 10:25 PM Dictation Location: RADIO-PC-20 Transcribed By: [facility] 03/13/252224 Dictated By: Garrett Dawson DO 03/13/252220 Signed By: 03/13/252224 Normal [facility] Doni 03-07-2025 CNPN Telephone ([facility]) ---- CHAI ARNOLD ([id number]) 1970 M Date Time Provider Department 03/07/25 LYDIA DRAKE During your visit today, we recorded the following information about you: Sterling Gonzalez 03/07/2025 1:33 PM Signed Chai Arnold - [phone] Patient contacted the office regarding the baclofen [...] Encounter Status:Closed by STERLING GONZALEZ on 03/07/25 [facility] ANORECTAL MANOMET [facility] 02-28-2025 PATIENT NAME: Chai Arnold PATIENT IDENTITY VERIFICATION COMPLETED USING TWO (2) IDENTIFIERS: Name and Date of confirmed by patient verbally. Referred by: Violette Maurer APRN.CNP Reason for testing: constipation Ileoanal pouch: No SENSITIVE EXAMINATION CONSENT: The sensitive examination was discussed with the Patient or Patient's Authorized Machine Design Engineer. As applicable, any other physician, advance practice provider, medical student, or other health professional student that will be observing or involved in the sensitive examination for educational or training purposes was discussed with the Patient or Authorized Machine Design Engineer. The Patient or Authorized Machine Design Engineer has agreed to proceed with the sensitive examination. Rope Laying Machine Operator offered:Patient accepts, visit chaperoned by Antonieta [...] Guerra MD Colon & Rectal Surgery [employer] ANORECTAL MANOMET RYOrdered By: Aparna Guerra on 02-28-2025 [facility] Work Phone: Radiology Study observation (narrative) Usha dubose [facility] Work Phone: CNNURSEon 02-28-2025 CNNURSE Nurse Visit (KENIA) ---- CHAI ARNOLD ([id number]) 1970 M Date Time Provider Department 02/28/25 12:30 PM SAHIL BERGERON During your visit today, we recorded the following information about you: Referring Provider: VIOLETTE MAURER [[id number]] Allergies As of Date: 02/28/2025 (No Known Allergies) Date Reviewed: 02/28/2025 Reviewed by: Macey Meek OCCA - Fully Assessed Reason for Visit: Manometry [780] Visit Diagnosis:Pelvic floor dysfunction [M62.89] Order(s):ADULT [place] ANORECTAL MANOMETRY [1067268] Order #: [id number] Prescriptions as of 02/28/2025 - ALPRAZolam (XANAX) [...] Encounter Status:Closed by SAHIL BERGERON on 02/28/25 [facility] CNOVon 02-28-2025 CNOV Office Visit (KENIA) ---- CHAI ARNOLD ([id number]) 1970 M Date Time Provider Department 02/28/25 [...] a compounded preparation from a pharmacy in [place], and previously used hydrocortisone. He has not [...] retroflexed positi (more content not included)... Normal [facility] HISTORY PHYSICALon HISTORY PHYSICAL HNO ID: [id number] Author: LYDIA DRAKE PA-C Service: ? Author Type: Physician Design Printing Machine Setter Type: H&P Filed: 02/28/2025 13:41 Note Text: [...] a compounded preparation from a pharmacy in [place], and previously used hydrocortisone. He has not [...] No pa (more content not included)... Normal [facility] 02-11-2025 CNPN Telephone ([facility]) ---- CHAI ARNOLD ([id number]) 1970 M Date Time Provider Department 02/11/25 ASHLEY HAYWARD [facility] During your visit today, we recorded the [...] Encounter Status:Closed by CHELLE CHRISTIANSON on 02/11/25 [facility] Ambulatory Visit Summaryon 0 01-24-2025 [...] EDT With: Caitlyn CHAVIS, Vivian Lance Where: [facility] [address] [place] [address]- Medications What How Much When Why Instructions New plecanatide (Trulance 3 mg oral tablet) 1 Tablets By Mouth Every day Constipation Constipation by outlet dysfunction Pelvic floor dysfunction Bloating Stress-related physiological response affecting medical condition Drug dependence Refills: 4 Pickup at for; to (do) #72 Unchanged amlodipine (amLODIPine 5 mg Tab) [...] physician if questions or concerns Pharmacy Information for; to (do) #72: [address] [place] [id number] [phone] Allergies No Known Medication Allergies Problems Ongoing [...] for choosing us for your care. Normal [facility] Gastroenterology Office/Clin ic Noteon 01-24-2025 Gastroenterology [...] him. Will refer to GI psychology at [facility] Advised to use squatty potty and [...] days could not see a provider at [facility] Review of Systems PHQ Score Initial [...] Daily, # 30 tab(s), Refills(s) 4, Pharmacy: for; to (do) #72, 173, cm, 01/24/25 10:35:00 EDT, Height/Length Dosing, 86.3, kg, 01/24/25 10:35:00 EDT, Weight Dosing 2. Constipation by outlet dysfunction (K59.02: Outlet dysfunction constipation) Ordered: plecanatide, 3 mg = 1 tab(s), Oral, Daily, # 30 tab(s), Refills(s) 4, Pharmacy: for; to (do) #72, 173, cm, 01/24/25 10:35:00 EDT, Height/Length Dosing, 86.3, kg, 01/24/25 10:35:00 EDT, Weight Dosing 3. Pelvic floor dysfunction (M62.89: Other specified disorders of muscle) Ordered: plecanatide, 3 mg = 1 tab(s), Oral, Daily, # 30 tab(s), Refills(s) 4, Pharmacy: for; to (do) #72, 173, cm, 01/24/25 10:35:00 EDT, Height/Length Dosing, 86.3, kg, 01/24/25 10:35:00 EDT, Weight Dosing 4. Bloating (R14.0: Abdominal distension (gaseous)) Ordered: plecanatide, 3 mg = 1 tab(s), Oral, Daily, # 30 tab(s), Refills(s) 4, Pharmacy: for; to (do) #72, 173, cm, 01/24/25 10:35:00 EDT, Height/Length Dosing, 86.3, kg, 01/24/25 10:35:00 EDT, Weight Dosing 5. Stress-related physiological response affecting medical condition (F54: Psychological and behavioral factors associated with disorders or diseases classified elsewhere) Ordered: (more content not included)... Normal [facility] Comment on above: Result Comment: Elec [...] Someone Will Contact You Regarding These Appointments [facility] External Ambulatory Referral, Gastroenterology, 01/09/25 13:16:00 EDT, [...] choosing us for your care. Normal [facility] Gastroenterology Office/Clin ic Noteon 01-09-2025 Gastroenterology [...] him. Will refer to GI psychology at [facility] Advised to use squatty potty and [...] 11/18/2020 Recorded (more content not included)... Normal [facility] Comment on above: Result Comment: Elec tronically Signed By: Caitlyn CHAVIS, Vivian Lance\.br\Date and Time Signed: 01/09/25 13:17 EDT COMPLETE BLOOD COUNTon 12-10 Erythrocyte distribution width (RBC) [Ratio] 13.5 % Normal 11.5-15.0 [facility] Comment on above: Performed By: #### C BC, [facility], 2498-4, 54154-2, 2857-1, TSHR #### [facility] ([id number]) [address] [address] Hematocrit (Bld) [Volume fraction] 48.2 % Normal 39-49 [facility] Comment on above: Performed By: #### C BC, CMP, 2498-4, 80739-8, 2857-1, TSHR #### [facility] ([id number]) [address], [address] [place] [address] Hemoglobin (Bld) [Mass/Vol] 16.1 g/dL Normal 13.0-17.0 [facility] Comment on above: Performed By: #### C BC, CMP, 2498-4, 35701-0, 2857-1, TSHR #### [facility] ([id number]) [address], [facility] [address] [place] [address] MCH (RBC) [Entitic mass] 31.9 pg Normal 27-34 [facility] Comment on above: Performed By: #### C BC, CMP, 2498-4, 57470-8, 2857-1, TSHR #### [facility] ([id number]) [address], [address] [place] [address] MCHC (RBC) [Mass/Vol] 33.4 g/dL Normal 32-36 [facility] Comment on above: Performed By: #### C BC, CMP, 2498-4, 25902-3, 2857-1, TSHR #### [facility] ([id number]) [address], [facility] [address] [place] [address] MCV (RBC) [Entitic vol] 96 fL Normal 80-100 [facility] Comment on above: Performed By: #### C BC, CMP, 2498-4, 81699-8, 2857-1, TSHR #### [facility] ([id number]) [address], [address] [place] [address] Platelet mean volume (Bld) [Entitic vol] 9.6 fL Normal 7-12 [facility] Comment on above: Performed By: #### C BC, CMP, 2498-4, 28396-5, 2857-1, TSHR #### [facility] ([id number]) [address], [address] [place] [address] Platelets (Bld) [#/Vol] 184 10*3/uL Normal 150-450 [facility] Comment on above: Performed By: #### C BC, CMP, 2498-4, 45105-0, 2857-1, TSHR #### [facility] ([id number]) [address], [address] [place] [address] RBC COUNT 5.04 X10E12/L Normal 4.10-5.70 [facility] Comment on above: Performed By: #### C BC, CMP, 2498-4, 47401-8, 2857-1, TSHR #### [facility] ([id number]) [address], [address] [place] [address] WBC (Bld) [#/Vol] 5.2 10*3/uL Normal 4.0-11.0 [facility] Comment on above: Performed By: #### C BC, CMP, 2498-4, 55557-4, 2857-1, TSHR #### [facility] ([id number]) [address], [address] [place] [address] COMPREHENSIVE METABOLIC PANE Vern 12-10-2024 Albumin [Mass/Vol] 4.5 g/dL Normal 3.2-5.3 [facility] Comment on above: Performed By: #### C BC, CMP, 2498-4, 36480-8, 2857-1, TSHR #### [facility] ([id number]) [address], [address] [place] [address] ALP [Catalytic activity/Vol] 101 U/L Normal 39-130 [facility] Comment on above: Performed By: #### C BC, CMP, 2498-4, 76761-1, 2857-1, TSHR #### [facility] ([id number]) [address], [address] [place] [address] ALT [Catalytic activity/Vol] 38 U/L Normal 0-40 [facility] Comment on above: Performed By: #### C BC, CMP, 2498-4, 22791-8, 2857-1, TSHR #### [facility] ([id number]) [address], [address] [place] [address] Anion gap [Moles/Vol] 11 mmol/L Normal 5-15 [facility] Comment on above: Performed By: #### C BC, CMP, 2498-4, 65126-4, 2857-1, TSHR #### [facility] ([id number]) [address], [address] [place] [address] AST [Catalytic activity/Vol] 28 U/L Normal 0-41 [facility] Comment on above: Performed By: #### C BC, CMP, 2498-4, 96853-5, 2857-1, TSHR #### [facility] ([id number]) [address], [address] [place] [address] Bilirubin [Mass/Vol] 0.6 mg/dL Normal 0.3-1.2 [facility] Comment on above: Performed By: #### C BC, CMP, 2498-4, 08810-2, 2857-1, TSHR #### [facility] ([id number]) [address], [address] [place] [address] Calcium [Mass/Vol] 9.6 mg/dL Normal 8.5-10.5 [facility] Comment on above: Performed By: #### C BC, CMP, 2498-4, 02528-7, 2857-1, TSHR #### [facility] ([id number]) [address], [address] [place] [address] Chloride [Moles/Vol] 105 mmol/L Normal 98-109 [facility] Comment on above: Performed By: #### C BC, CMP, 2498-4, 18747-6, 2857-1, TSHR #### [facility] ([id number]) [address], [address] [place] [address] CO2 [Moles/Vol] 26 mmol/L Normal 22-32 [facility] Comment on above: Performed By: #### C BC, CMP, 2498-4, 22620-5, 2857-1, TSHR #### [facility] ([id number]) [address], [address] [place] [address] Creatinine [Mass/Vol] 0.94 mg/dL Normal 0.60-1.30 [facility] Comment on above: Result Comment: METH OD TRACEABLE TO IDMS STANDARD Performed By: #### C KARLEY, CMP, 2498-4, 38084-6, 2857-1, TSHR #### [facility] ([id number]) [address], [address] [place] [address] eGFR (CKD-EPI) NON-RACE DEPENDENT >90 Normal >59 [facility] Comment on above: Result Comment: Reported eGFR is based on the CKD-EPI 2020 equation that does not use a race coefficient. Performed By: #### C KARLEY, CMP, 2498-4, 55527-9, 2857-1, TSHR #### [facility] ([id number]) [address], [address] [place] [address] Glucose [Mass/Vol] 86 mg/dL Normal 65-99 [facility] Comment on above: Performed By: #### Remberto CRANDALL, CMP, 2498-4, 15647-7, 2857-1, TSHR #### [facility] ([id number]) [address], [address] [place] [address] Potassium [Moles/Vol] 4.2 mmol/L Normal 3.5-5.0 [facility] Comment on above: Performed By: #### Remberto CRANDALL, CMP, 2498-4, 44373-0, 2857-1, TSHR #### [facility] ([id number]) [address], [address] [place] [address] Protein [Mass/Vol] 7.4 g/dL Normal 6.0-8.0 [facility] Comment on above: Performed By: #### C BC, CMP, 2498-4, 12089-8, 2857-1, TSHR #### [facility] ([id number]) [address], [address] [place] [address] Sodium [Moles/Vol] 142 mmol/L Normal 134-146 [facility] Comment on above: Performed By: #### C BC, CMP, 2498-4, 02388-9, 2857-1, TSHR #### [facility] ([id number]) [address], [facility] [address] [place] [address] Urea nitrogen [Mass/Vol] 13 mg/dL Normal 5-23 [facility] Comment on above: Performed By: #### Remberto BC, CMP, 2498-4, 26249-7, 2857-1, TSHR #### [facility] ([id number]) [address], [facility] [address] [place] [address] IRONon 12-10-2024 Iron [Mass/Vol] 184 ug/dL Normal 50-212 [facility] Comment on above: Performed By: ###Oseas Sr BC, CMP, 2498-4, 46748-3, 2857-1, TSHR #### [facility] ([id number]) [address], [address] [address] Lipid 1996 panelon Cholesterol [Mass/Vol] 183 mg/dL Normal 150-200 [facility] Comment on above: Performed By: ###Oseas Sr BC, CMP, 2498-4, 78907-4, 2857-1, TSHR #### [facility] ([id number]) [address] [address] Cholesterol in HDL [Mass/Vol] 38 mg/dL Low >39 [facility] Comment on above: Result Comment: HDL <40 mg/dL - High Risk HDL > or = 40mg/dL- Desirable HDL >60 mg/dL - Negative Risk Performed By: #### Remberto BC, CMP, 2498-4, 90594-4, 2857-1, TSHR #### [facility] ([id number]) [address] [address] Cholesterol in LDL [Mass/Vol] 121 mg/dL Normal <130 [facility] Comment on above: Result Comment: LDL <100 mg/dL - Desirable LDL >160 mg/dL - High Risk Performed By: #### C BC, CMP, 2498-4, 64624-3, 2857-1, TSHR #### [facility] ([id number]) [address] [address] Cholesterol in VLDL [Mass/Vol] 24 mg/dL Normal 0-30 [facility] Comment on above: Performed By: #### Remberto BC, CMP, 2498-4, 39469-6, 2857-1, TSHR #### [facility] ([id number]) [address] [address] CHOLESTEROL:HDL 4.8 Normal 1.0-5.0 [facility] Comment on above: Performed By: #### Remberto BC, CMP, 2498-4, 58861-0, 2857-1, TSHR #### [facility] ([id number]) [address] [address] Triglyceride [Mass/Vol] 119 mg/dL Normal 27-150 [facility] Comment on above: Performed By: #### Remberto BC, CMP, 2498-4, 08110-9, 2857-1, TSHR #### [facility] ([id number]) [address] [address] Prostate specific Ag [Mass/V ol]on 12-10-2024 PSA SCREEN 0.57 ng/mL Normal 0.00-4.00 [facility] Comment on above: Result Comment: The method used for this test is Graciela Shashi DXI chemiluminescent immunoassay. Values obtained by different assay methods cannot be used interchangeably. Performed By: #### C BC, CMP, 2498-4, 15764-8, 2857-1, TSHR #### [facility] ([id number]) [address] [address] TSH WITH REFLEXon 12-10-2024 TSH 1.34 uIU/mL Normal 0.49-4.67 [facility] Comment on above: Performed By: #### C BC, CMP, 2498-4, 72700-2, 2857-1, TSHR #### [facility] ([id number]) [address] [address] COMPLETE BLOOD COUNTon 09-11 Erythrocyte distribution width (RBC) [Ratio] 13.4 % Normal 11.5-15.0 [facility] Comment on above: Performed By: #### Remberto CRANDALL, CMP, 2857-1, TSHR #### [facility] ([id number]) [address] [address] Hematocrit (Bld) [Volume fraction] 47.4 % Normal 39-49 [facility] Comment on above: Performed By: #### Remberto BC, CMP, 2857-1, TSHR #### [facility] ([id number]) [address] [address] Hemoglobin (Bld) [Mass/Vol] 16.4 g/dL Normal 13.0-17.0 [facility] Comment on above: Performed By: #### Remberto BC, CMP, 2857-1, TSHR #### [facility] ([id number]) [address] [address] MCH (RBC) [Entitic mass] 32.4 pg Normal 27-34 [facility] Comment on above: Performed By: #### Remberto BC, CMP, 2857-1, TSHR #### [facility] ([id number]) [address] [place] [address] MCHC (RBC) [Mass/Vol] 34.6 g/dL Normal 32-36 [facility] Comment on above: Performed By: #### Remberto BC, CMP, 2857-1, TSHR #### [facility] ([id number]) [address] [address] [place] [address] MCV (RBC) [Entitic vol] 94 fL Normal 80-100 [facility] Comment on above: Performed By: #### Remberto BC, CMP, 2857-1, TSHR #### [facility] ([id number]) [address] [address] [place] [address] Platelet mean volume (Bld) [Entitic vol] 9.4 fL Normal 7-12 [facility] Comment on above: Performed By: #### Remberto CRANDALL, CMP, 2857-1, TSHR #### [facility] ([id number]) [address] [address] [place] [address] Platelets (Bld) [#/Vol] 235 10*3/uL Normal 150-450 [facility] Comment on above: Performed By: #### Remberto BC, CMP, 2857-1, TSHR #### [facility] ([id number]) [address] [address] [place] [address] RBC COUNT 5.06 X10E12/L Normal 4.10-5.70 [facility] Comment on above: Performed By: #### Remberto BC, CMP, 2857-1, TSHR #### [facility] ([id number]) [address] [address] [place] [address] WBC (Bld) [#/Vol] 7.0 10*3/uL Normal 4.0-11.0 [facility] Comment on above: Performed By: #### Remberto BC, CMP, 2857-1, TSHR #### [facility] ([id number]) [address] [place] [address] COMPREHENSIVE METABOLIC PANE Vern 09-11-2024 Albumin [Mass/Vol] 4.5 g/dL Normal 3.2-5.3 [facility] Comment on above: Performed By: #### C BC, CMP, 2857-1, TSHR #### [facility] ([id number]) [address], [address] [place] [address] ALP [Catalytic activity/Vol] 133 U/L High 39-130 [facility] Comment on above: Performed By: #### C BC, CMP, 2857-1, TSHR #### [facility] ([id number]) [address], [address] [place] [address] ALT [Catalytic activity/Vol] 20 U/L Normal 0-40 [facility] Comment on above: Performed By: #### Remberto BC, CMP, 2857-1, TSHR #### [facility] ([id number]) [address], [address] [place] [address] Anion gap [Moles/Vol] 10 mmol/L Normal 5-15 [facility] Comment on above: Performed By: #### Remberto BC, CMP, 2857-1, TSHR #### [facility] ([id number]) [address], [address] [place] [address] AST [Catalytic activity/Vol] 26 U/L Normal 0-41 [facility] Comment on above: Performed By: #### C BC, CMP, 2857-1, TSHR #### [facility] ([id number]) [address], [address] [place] [address] Bilirubin [Mass/Vol] 0.8 mg/dL Normal 0.3-1.2 [facility] Comment on above: Performed By: #### C BC, CMP, 2857-1, TSHR #### [facility] ([id number]) [address], [address] [place] [address] Calcium [Mass/Vol] 9.6 mg/dL Normal 8.5-10.5 [facility] Comment on above: Performed By: #### Remberto CRANDALL CMP, 2857-1, TSHR #### [facility] ([id number]) [address], [address] [place] [address] Chloride [Moles/Vol] 103 mmol/L Normal 98-109 [facility] Comment on above: Performed By: #### Remberto CRANDALL CMP, 2857-1, TSHR #### [facility] ([id number]) [address], [facility] [address] [place] [address] CO2 [Moles/Vol] 27 mmol/L Normal 22-32 [facility] Comment on above: Performed By: #### Remberto CRANDALL CMP, 2857-1, TSHR #### [facility] ([id number]) [address], [address] [place] [address] Creatinine [Mass/Vol] 1.05 mg/dL Normal 0.60-1.30 [facility] Comment on above: Result Comment: METH OD TRACEABLE TO IDMS STANDARD Performed By: #### Remberto CRANDALL CMP, 2857-1, TSHR #### [facility] ([id number]) [address], [facility] [address] [place] [address] GFR/1.73 sq M.predicted among non-blacks MDRD (S/P/Bld) [Vol rate/Area] 83 mL/min/{1.73_m2} Normal >59 [facility] Comment on above: Result Comment: Reported eGFR is based on the CKD-EPI 2020 equation that does not use a race coefficient. Performed By: #### Remberto CRANDALL CMP, 2857-1, TSHR #### [facility] ([id number]) [address], [address] [place] [address] Glucose [Mass/Vol] 87 mg/dL Normal 65-99 [facility] Comment on above: Performed By: #### Remberto CRANDALL, CMP, 2857-1, TSHR #### [facility] ([id number]) [address] [address] [place] [address] Potassium [Moles/Vol] 3.9 mmol/L Normal 3.5-5.0 [facility] Comment on above: Performed By: #### Remberto CRANDALL CMP, 2857-1, TSHR #### [facility] ([id number]) [address] [address] [place] [address] Protein [Mass/Vol] 7.3 g/dL Normal 6.0-8.0 [facility] Comment on above: Performed By: #### Remberto CRANDALL CMP, 2857-1, TSHR #### [facility] ([id number]) [address] [address] [place] [address] Sodium [Moles/Vol] 140 mmol/L Normal 134-146 [facility] Comment on above: Performed By: #### Remberto CRANDALL CMP, 2857-1, TSHR #### [facility] ([id number]) [address] [address] [place] [address] Urea nitrogen [Mass/Vol] 6 mg/dL Normal 5-23 [facility] Comment on above: Performed By: #### Remberto CRANDALL CMP, 2857-1, TSHR #### [facility] ([id number]) [address] [address] [place] [address] Prostate specific Ag [Mass/V ol]on 09-11-2024 PSA SCREEN 0.71 ng/mL Normal 0.00-4.00 [facility] Comment on above: Result Comment: The method used for this test is Graciela Riverside DXI chemiluminescent immunoassay. Values obtained by different assay methods cannot be used interchangeably. Performed By: #### Remberto CRANDALL, CMP, 2857-1, TSHR #### [facility] ([id number]) [address] [address] [place] [address] TSH WITH REFLEXon 09-11-2024 TSH 1.29 uIU/mL Normal 0.49-4.67 [facility] Comment on above: Performed By: #### C BC, CMP, 2857-1, TSHR #### [facility] ([id number]) [address], [address] [place] [address] CBC AND AUTO DIFFon 05-15-20 ABSOLUTE BASOPHIL 0.1 X10E9/L Normal 0.0-0.2 [facility] Comment on above: Performed By: #### C BCA, CMP, 3040-3, 77176-2 #### [facility] ([id number]) [address] [place] [address] ABSOLUTE NEUTROPHIL 5.7 X10E9/L Normal 1.5-6.6 [facility] Comment on above: Performed By: #### C BCA, CMP, 3040-3, 61848-3 #### [facility] ([id number]) [address] [place] [address] Basophils/100 WBC (Bld) 0.7 % Normal [facility] Comment on above: Performed By: #### C BCA, CMP, 3040-3, 66969-1 #### [facility] ([id number]) [address] [place] [address] Eosinophils (Bld) [#/Vol] 0.4 10*3/uL Normal 0.0-0.4 [facility] Comment on above: Performed By: #### C BCA, CMP, 3040-3, 54862-2 #### [facility] ([id number]) [address] [place] [address] Eosinophils/100 WBC (Bld) 4.9 % Normal [facility] Comment on above: Performed By: #### C BCA, CMP, 3040-3, 95899-0 #### [facility] ([id number]) [address] [place] [address] Erythrocyte distribution width (RBC) [Ratio] 12.3 % Normal 11.5-15.0 [facility] Comment on above: Performed By: #### C ALEXANDRIA ANTOINE, 3040-3, 04715-7 #### [facility] ([id number]) [address] [place] [address] Hematocrit (Bld) [Volume fraction] 41.8 % Normal 39-49 [facility] Comment on above: Performed By: #### C [place] ANTOINE, 3, 43177-6 #### [facility] ([id number]) [address] [place] [address] 91173 Hemoglobin (Bld) [Mass/Vol] 15.1 g/dL Normal 13.0-17.0 [facility] Comment on above: Performed By: #### Remberto ANTOINE CMP, 3, 98790-8 #### [facility] ([id number]) [address] [place] [address] 74404 Lymphocytes (Bld) [#/Vol] 1.4 10*3/uL Normal 1.0-3.5 [facility] Comment on above: Performed By: #### Remberto ANTOINE CMP, 30403, 33645-7 #### [facility] ([id number]) [address] [place] [address] 41735 Lymphocytes/100 WBC (Bld) 17.3 % Normal [facility] Comment on above: Performed By: #### Remberto ANTOINE CMP, 304-3, 34431-5 #### [facility] ([id number]) [address] [place] [address] 60222 MCH (RBC) [Entitic mass] 32.3 pg Normal 27-34 [facility] Comment on above: Performed By: #### C BCA, CMP, 0-3, 85310-5 #### [facility] ([id number]) [address] [place] [address] 63162 MCHC (RBC) [Mass/Vol] 36.0 g/dL Normal 32-36 [facility] Comment on above: Performed By: #### C ARASH, CMP, 0-3, 02504-7 #### [facility] ([id number]) [address] [place] [address] 88555 MCV (RBC) [Entitic vol] 90 fL Normal 80-100 [facility] Comment on above: Performed By: #### C ARASH, CMP, 0-3, 31209-5 #### [facility] ([id number]) [address] [place] [address] 80866 Monocytes (Bld) [#/Vol] 0.6 10*3/uL Normal 0-0.9 [facility] Comment on above: Performed By: #### C ARASH, CMP, 0-3, 58241-7 #### [facility] ([id number]) [address] [place] [address] 23507 Monocytes/100 WBC (Bld) 7.6 % Normal [facility] Comment on above: Performed By: #### Remberto ANTOINE, CMP, 3039-3, 05137-1 #### [facility] ([id number]) [address] [place] [address] 70766 Neutrophils/100 WBC (Bld) 69.5 % Normal [facility] Comment on above: Performed By: #### Remberto BCA, CMP, 0-3, 48119-7 #### [facility] ([id number]) [address] [place] [address] 22185 Platelet mean volume (Bld) [Entitic vol] 8.2 fL Normal 7-12 [facility] Comment on above: Performed By: #### C BCA, CMP, 0-3, 06151-4 #### [facility] ([id number]) [address] [place] [address] 46771 Platelets (Bld) [#/Vol] 254 10*3/uL Normal 150-450 [facility] Comment on above: Performed By: #### C BCA, CMP, 3040-3, 63612-6 #### [facility] [facility] ([id number]) [address] [place] [address] 31547 RBC COUNT 4.66 X10E12/L Normal 4.10-5.70 [facility] Comment on above: Performed By: #### C BCA, CMP, 3040-3, 60668-3 #### [facility] ([id number]) [address] [place] [address] 35825 WBC (Bld) [#/Vol] 8.1 10*3/uL Normal 4.0-11.0 [facility] Comment on above: Performed By: #### C BCA, CMP, 3040-3, 38216-2 #### [facility] ([id number]) [address] [place] [address] 38941 COMPREHENSIVE METABOLIC PANE [facility] 05-15-2024 Albumin [Mass/Vol] 4.5 g/dL Normal 3.2-5.3 [facility] Comment on above: Performed By: #### C BCA, CMP, 3040-3, 32178-3 #### [facility] ([id number]) [address] [place] [address] 04640 ALP [Catalytic activity/Vol] 105 U/L Normal 39-130 [facility] Comment on above: Performed By: #### C BCA, CMP, 3040-3, 82332-3 #### [facility] ([id number]) [address] [place] [address] 85039 ALT [Catalytic activity/Vol] 33 U/L Normal 0-40 [facility] Comment on above: Performed By: #### C BCA, CMP, 3040-3, 38994-5 #### [facility] ([id number]) [address] [place] [address] 38694 Anion gap [Moles/Vol] 9 mmol/L Normal 5-15 [facility] Comment on above: Performed By: #### C BCA, CMP, 3040-3, 38948-7 #### [facility] ([id number]) [address] [place] [address] 30285 AST [Catalytic activity/Vol] 29 U/L Normal 0-41 [facility] Comment on above: Performed By: #### C BCA, CMP, 3040-3, 86586-1 #### [facility] ([id number]) [address] [place] [address] 54255 Bilirubin [Mass/Vol] 0.9 mg/dL Normal 0.3-1.2 [facility] Comment on above: Performed By: #### C BCA, CMP, 3040-3, 86896-8 #### [facility] ([id number]) [address] [place] [address] 47718 Calcium [Mass/Vol] 9.1 mg/dL Normal 8.5-10.5 [facility] Comment on above: Performed By: #### C BCA, CMP, 3040-3, 68240-8 #### [facility] ([id number]) [address] [place] [address] 94093 Chloride [Moles/Vol] 96 mmol/L Low 98-109 [facility] Comment on above: Performed By: #### C BCA, CMP, 3040-3, 84233-1 #### [facility] ([id number]) [address] [place] [address] 96340 CO2 [Moles/Vol] 24 mmol/L Normal 22-32 [facility] Comment on above: Performed By: #### C ALEXANDRIA ANTOINE, 3040-3, 15541-5 #### [facility] ([id number]) [address] [place] [address] 81109 Creatinine [Mass/Vol] 0.91 mg/dL Normal 0.70-1.20 [facility] Comment on above: Result Comment: METH OD TRACEABLE TO IDMS STANDARD Performed By: #### C ALEXANDRIA ANTOINE, 3040-3, 31886-9 #### [facility] ([id number]) [address] [place] [address] 99819 eGFR (CKD-EPI) NON-RACE DEPENDENT >90 Normal >59 [facility] Comment on above: Result Comment: Reported eGFR is based on the CKD-EPI 2020 equation that does not use a race coefficient. Performed By: #### C ALEXANDRIA ANTOINE, 3040-3, 91139-5 #### [facility] ([id number]) [address] [place] [address] 13897 Glucose [Mass/Vol] 97 mg/dL Normal 65-99 [facility] Comment on above: Performed By: #### C ALEXANDRIA ANTOINE, 3040-3, 35910-9 #### [facility] ([id number]) [address] [place] [address] 48069 Potassium [Moles/Vol] 3.2 mmol/L Low 3.5-5.0 [facility] Comment on above: Performed By: #### C ALEXANDRIA ANTOINE, 3040-3, 95945-4 #### [facility] ([id number]) [address] [place] [address] 05474 Protein [Mass/Vol] 7.2 g/dL Normal 6.0-8.0 [facility] Comment on above: Performed By: #### C ALEXANDRIA ANTOINE, 3040-3, 53311-2 #### [facility] ([id number]) [address] [place] [address] 89835 Sodium [Moles/Vol] 129 mmol/L Low 134-146 [facility] Comment on above: Performed By: #### C ARASH CMP, 3040-3, 22142-3 #### [facility] ([id number]) [address] [place] [address] 25965 Urea nitrogen [Mass/Vol] 15 mg/dL Normal 5-23 [facility] Comment on above: Performed By: #### C ALEXANDRIA ANTOINE, 3040-3, 88179-1 #### [facility] ([id number]) [address] [place] [address] 22578 LIPASEon 05-15-2024 Lipase [Catalytic activity/Vol] 37 U/L Normal 17-40 [facility] Comment on above: Performed By: #### C ALEXANDRIA ANTOINE, 3040-3, 39709-0 #### [facility] ([id number]) [address] [place] [address] 16630 Lactate (P cherie) [Moles/Vol]o n 05-15-2024 LACTATE W/REFLEX 1.0 mmol/L Normal 0.4-2.0 [facility] Comment on above: Result Comment: Result did not trigger repeat Lactate, re-order if needed. Performed By: #### 3 2133-1 #### [facility] ([id number]) [address] [place] [address] 51694 Troponin I.cardiac High sens itivity method [Mass/Vol]on 05-15-2024 1 HOUR TROP I, HIGH SENSITIVITY 3 ng/L Normal <21 [facility] Comment on above: Performed By: #### 8 9579-7 #### [facility] ([id number]) [address] [place] [address] 80078 TROPONIN I, HIGH SENSITIVITY 3 ng/L Normal <21 [facility] Comment on above: Performed By: #### C BCA, CMP, 3040-3, 62561-0 #### [facility] ([id number]) [address] [facility], [place] [address] Bacteria [Presence] in Urine by AutomatedOrdered By: Nish Davidson on 03-03-2024 Bacteria Auto Ql (U) None seen [HPF] None Seen [facility] Basophils Auto (Bld) [#/Vol] Ordered By: James De on 03-03-2024 Basophils (Bld) [#/Vol] 0.0 10*3/uL 0.0-0.2 [facility] Basophils/100 WBC Auto (Bld) Ordered By: James De on 03-03-2024 Basophils/100 WBC (Bld) 0.4 % . [facility] Bilirubin Test strip Ql (U)O rdered By: Nish Davidson on 03-03-2024 Bilirubin Ql (U) Negative Negative [facility] Calcium [Mass/volume] in Ser um or PlasmaOrdered By: James De on 03-03-2024 Calcium [Mass/Vol] 9.5 mg/dL 8.6-10.3 [facility] Carbon dioxide, total [Moles /volume] in Serum or PlasmaOrdered By: James De on 03-03-2024 CO2 [Moles/Vol] 25.3 mmol/L 21.0-31.0 [facility] Chloride [Moles/volume] in S dereje or PlasmaOrdered By: James De on 03-03-2024 Chloride [Moles/Vol] 102 mmol/L 98-107 [facility] Color Auto (U)Ordered By: Dimitry Davidson on 03-03-2024 Color (U) Yellow Yellow [facility] Creatinine [Mass/volume] in Serum or PlasmaOrdered By: James De on 03-03-2024 Creatinine [Mass/Vol] 1.18 mg/dL 0.70-1.30 [facility] Eosinophils Auto (Bld) [#/Vo l]Ordered By: James De on 03-03-2024 Eosinophils (Bld) [#/Vol] 0.2 10*3/uL 0.0-0.45 [facility] Eosinophils/100 WBC Auto (Bl d)Ordered By: James De on 03-03-2024 Eosinophils/100 WBC (Bld) 2.6 % . [facility] Epithelial cells.squamous [# /area] in Urine sediment by Automated countOrdered By: Nish Davidson on 03-03-2024 Epithelial cells.squamous Auto (Urine sed) [#/Area] 1-2 [HPF] 0-2 [facility] Erythrocyte distribution wid th Auto (RBC) [Ratio]Ordered By: James De on 03-03-2024 Erythrocyte distribution width (RBC) [Ratio] 12.6 % 12.0-14.8 [facility] Erythrocytes [#/area] in Uri ne sediment by Automated countOrdered By: Nish Davidson on 03-03-2024 RBC Auto (Urine sed) [#/Area] None seen [HPF] 0-4 [facility] Glucose [Mass/volume] in Ser um or PlasmaOrdered By: James De on 03-03-2024 Glucose [Mass/Vol] 83 mg/dL 70-100 [facility] Comment on above: ADA recommended refe rence rangeRandom Glucose Reference Range is dependent on time and content of last meal. Glucose of more than 200 mg/dL in a nonstressed, ambulatory subject supports the diagnosis of Diabetes Mellitus. Glucose [Mass/volume] in Uri ne by Test stripOrdered By: Nish Davidson on 03-03-2024 Glucose Test strip (U) [Mass/Vol] Normal mg/dL Normal [facility] Hematocrit Auto (Bld) [Volum e fraction]Ordered By: James De on 03-03-2024 Hematocrit (Bld) [Volume fraction] 52.6 % High 38.8-50.0 [facility] Hemoglobin Test strip Ql (U) Ordered By: Nish Davidson on 03-03-2024 Hemoglobin Ql (U) Negative Negative [facility] Hemoglobin [Mass/volume] in BloodOrdered By: James De on 03-03-2024 Hemoglobin (Bld) [Mass/Vol] 18.5 g/dL High 13.0-17.0 [facility] Hyaline casts [#/area] in Ur ine sediment by Automated countOrdered By: Nish Davidson on 03-03-2024 Hyaline casts Auto (Urine sed) [#/Area] 0-8 [LPF] 0-8 [facility] Ketones Test strip Ql (U)Ord ered By: Nish Davidson on 03-03-2024 Ketones Ql (U) 2+ High Negative [facility] Leukocyte esterase [Presence ] in Urine by Test stripOrdered By: Nish Davidson on 03-03-2024 Leukocyte esterase Test strip Ql (U) Negative Negative [facility] Leukocytes [#/area] in Urine sediment by Automated countOrdered By: Nish Davidson on 03-03-2024 WBC Auto (Urine sed) [#/Area] 1-2 [HPF] 0-4 [facility] Leukocytes [#/volume] correc ernst for nucleated erythrocytes in Blood by Automated counOrdered By: James De on 03-03-2024 WBC corrected for nucl RBC Auto (Bld) [#/Vol] 9.0 10*3/uL 4.1-10.5 [facility] Lymphocytes Auto (Bld) [#/Vo l]Ordered By: James De on 03-03-2024 Lymphocytes (Bld) [#/Vol] 1.2 10*3/uL 1.00-4.8 [facility] Lymphocytes/100 WBC Auto (Bl d)Ordered By: James De on 03-03-2024 Lymphocytes/100 WBC (Bld) 13.4 % . [facility] MCH Auto (RBC) [Entitic mass ]Ordered By: James De on 03-03-2024 MCH (RBC) [Entitic mass] 32.8 pg 27.5-35.2 [facility] MCHC Auto (RBC) [Mass/Vol]Or dered By: James De on 03-03-2024 MCHC (RBC) [Mass/Vol] 35.1 g/dL 32.5-35.6 [facility] MCV Auto (RBC) [Entitic vol] Ordered By: James De on 03-03-2024 MCV (RBC) [Entitic vol] 93.4 fL 83.5-101 [facility] Monocyte distribution width [Entitic volume] in Blood by AutomatedOrdered By: James De on 03-03-2024 Monocyte distribution width Auto (Bld) [Entitic vol] 17.08 % 0.00-20.00 [facility] Monocytes Auto (Bld) [#/Vol] Ordered By: James De on 03-03-2024 Monocytes (Bld) [#/Vol] 0.8 10*3/uL 0.0-0.8 [facility] Monocytes/100 WBC Auto (Bld) Ordered By: James De on 03-03-2024 Monocytes/100 WBC (Bld) 8.7 % . [facility] Mucus [Presence] in Urine by AutomatedOrdered By: Nish Davidson on 03-03-2024 Mucus Auto Ql (U) 1+ [LPF] Abnormal [facility] Neutrophils Auto (Bld) [#/Vo l]Ordered By: James De on 03-03-2024 Neutrophils (Bld) [#/Vol] 6.7 10*3/uL 1.8-7.7 [facility] Neutrophils/100 WBC Auto (Bl d)Ordered By: James De on 03-03-2024 Neutrophils/100 WBC (Bld) 74.9 % . [facility] Nitrite Test strip Ql (U)Ord ered By: Nish Davidson on 03-03-2024 Nitrite Ql (U) Negative Negative [facility] No Panel InformationOrdered By: James De on 03-03-2024 Estimated GFR (CKD-EPI) > 60.0 mL/Min [facility] Creatinine Clearance (Chem 68.43 [facility] Nucleated erythrocytes [Pres ence] in Blood by Automated countOrdered By: James De on 03-03-2024 Nucleated RBC Auto Ql (Bld) 0.4 /100{WBC} 0-0.5 [facility] Platelet adequacy [Presence] in Blood by Light microscopyOrdered By: James De on 03-03-2024 Platelets LM Ql (Bld) Normal Normal [facility] Platelet mean volume Auto (B ld) [Entitic vol]Ordered By: James De on 03-03-2024 Platelet mean volume (Bld) [Entitic vol] 8.4 fL 6.6-10.1 [facility] Platelet morphology finding [Identifier] in BloodOrdered By: James De on 03-03-2024 Platelet morphology finding Nom (Bld) Normal Normal [facility] Platelets Auto (Bld) [#/Vol] Ordered By: James De on 03-03-2024 Platelets (Bld) [#/Vol] 207 10*3/uL 150-450 [facility] Potassium [Moles/volume] in Serum or PlasmaOrdered By: James De on 03-03-2024 Potassium [Moles/Vol] 3.7 mmol/L 3.5-5.1 [facility] Protein Test strip (U) [Mass /Vol]Ordered By: Nish Davidson on 03-03-2024 Protein (U) [Mass/Vol] Trace mg/dL High Negative [facility] RBC Auto (Bld) [#/Vol]Ordere d By: James De on 03-03-2024 RBC (Bld) [#/Vol] 5.64 10*6/uL High 3.90-5.60 [facility] RBC morphologyOrdered By: Asad De on 03-03-2024 RBC morphology finding Nom (Bld) Normal Normal [facility] Serum or plasma anion gap de terminationOrdered By: James De on 03-03-2024 Anion gap [Moles/Vol] 12.4 mmol/L 6.0-15.0 [facility] Sodium [Moles/volume] in Ser um or PlasmaOrdered By: James De on 03-03-2024 Sodium [Moles/Vol] 136 mmol/L 136-145 [facility] Specific gravity Test strip (U) [Rel density]Ordered By: Nish Davidson on 03-03-2024 Specific gravity (U) [Rel density] 1.015 1.001-1.030 [facility] Transitional cells [#/area] in Urine by Computer assisted methodOrdered By: Nish Davidson on 03-03-2024 Transitional cells Computer assisted (U) [#/Area] 1-2 [HPF] High 0-1 [facility] Urea nitrogen [Mass/volume] in Serum or PlasmaOrdered By: James De on 03-03-2024 Urea nitrogen [Mass/Vol] 8 mg/dL 7 [facility] Urine appearanceOrdered By: Nish Davidson on 03-03-2024 Appearance (U) Clear Clear [facility] Urobilinogen Test strip (U) [Mass/Vol]Ordered By: Nish Davidson on 03-03-2024 Urobilinogen (U) [Mass/Vol] Normal mg/dL Normal [facility] WBC Auto (Bld) [#/Vol]Ordere d By: James De on 03-03-2024 WBC (Bld) [#/Vol] 9.0 10*3/uL 4.1-10.5 [facility] pH Test strip (U)Ordered By: Nish Davidson on 03-03-2024 pH (U) 6.0 [pH] 5.0-9.0 [facility] Surgical Pathologyon 024 Surgical Pathology Normal [facility] Comment on above: Result Comment: [facility] [address] [place] [address] Surgical Pathology Consultation Patient Name:CHAI ARNOLD:1970 (Age: 53)Gender:MTaken:02/17/2024eported:02/22/2024hysician(s):Jennyfer Augustin MD ([phone])Copy To: Rec. #:[id number]: #[id number] Final Pathologic Diagnosis 1. Colon polyp 55cm: Hyperplastic polyp. 2. Colon polyp 35cm: Tubular adenoma. Report Electronically Signed Out 02/22/2024Keren Bee MD Interpretation performed at [facility], [address] [facility] [address], License number: [id number]. Clinical History Change in bowel habits. Gross Description 1. Received in formalin labeled, CATALINA, 55 cm is a mccray-richardson 0.3 cm soft tissue.. The specimen is filtered and entirely submitted in a single cassette. (1, ns, [id number], m8) SM 2. Received in formalin labeled, SAUMYAFTZ, 35 cm is a pale richardson 0.3 cm the specimen is filtered and entirely submitted in a single cassette. (1, ns, [id number], m8) slm/02/20/2024GR Specimen(s) Received 1: Colon polyp 55cm 2: Colon polyp 35cm Fee Codes(s): 1; 71248 2; 60552 Alanine aminotransferase [En zymatic activity/volume] in Serum or PlasmaOrdered By: Jennyfer Winkler on 01-29-2024 ALT [Catalytic activity/Vol] 24 U/L 7-52 [facility] Albumin [Mass/volume] in Ser um or Plasma by Bromocresol green (BCG) dye binding methoOrdered By: Jennyfer Winkler on 01-29-2024 Albumin BCG dye [Mass/Vol] 4.9 g/dL 3.5-5.7 [facility] Alkaline phosphatase [Enzyma tic activity/volume] in Serum or PlasmaOrdered By: Jennyfer Winkler on 01-29-2024 ALP [Catalytic activity/Vol] 96 U/L 34-104 [facility] Amylase [Enzymatic activity/ volume] in Serum or PlasmaOrdered By: Jennyfer Winkler on 01-29-2024 Amylase [Catalytic activity/Vol] 47 U/L 29-103 [facility] Aspartate aminotransferase [ Enzymatic activity/volume] in Serum or PlasmaOrdered By: Jennyfer Winkler on 01-29-2024 AST [Catalytic activity/Vol] 21 U/L 13-39 [facility] Basophils Auto (Bld) [#/Vol] Ordered By: Jennyfer Winkler on 01-29-2024 Basophils (Bld) [#/Vol] N/A F [facility] Basophils/100 WBC Auto (Bld) Ordered By: Jennyfer Winkler on 01-29-2024 Basophils/100 WBC (Bld) N/A [facility] Bilirubin Test strip Ql (U)O rdered By: Jennyfer Winkler on 01-29-2024 Bilirubin Ql (U) Negative Negative [facility] Bilirubin.direct [Mass/volum e] in Serum or PlasmaOrdered By: Jennyfer Winkler on 01-29-2024 Bilirubin.direct [Mass/Vol] 0.10 mg/dL 0.03-0.18 [facility] Bilirubin.total [Mass/volume ] in Serum or PlasmaOrdered By: Jennyfer Winkler on 01-29-2024 Bilirubin [Mass/Vol] 0.8 mg/dL 0.3-1.0 [facility] Calcium [Mass/volume] in Ser um or PlasmaOrdered By: Jennyfer Winkler on 01-29-2024 Calcium [Mass/Vol] 10.2 mg/dL 8.6-10.3 [facility] Carbon dioxide, total [Moles /volume] in Serum or PlasmaOrdered By: Jennyfer Winkler on 01-29-2024 CO2 [Moles/Vol] 26.4 mmol/L 21.0-31.0 [facility] Chloride [Moles/volume] in S dereje or PlasmaOrdered By: Jennyfer Winkler on 01-29-2024 Chloride [Moles/Vol] 98 mmol/L 98-107 [facility] Color Auto (U)Ordered By: Ella Winkler on 01-29-2024 Color (U) Colorless Yellow [facility] Creatinine [Mass/volume] in Serum or PlasmaOrdered By: Jennyfer Winkler on 01-29-2024 Creatinine [Mass/Vol] 1.07 mg/dL 0.70-1.30 [facility] Eosinophils Auto (Bld) [#/Vo l]Ordered By: Jennyfer Winkler on 01-29-2024 Eosinophils (Bld) [#/Vol] N/A [facility] Eosinophils/100 WBC Auto (Bl d)Ordered By: Jennyfer Winkler on 01-29-2024 Eosinophils/100 WBC (Bld) N/A [facility] Eosinophils/100 WBC Manual c nt (Bld)Ordered By: Jennyfer Winkler on 01-29-2024 Eosinophils/100 WBC (Bld) 5 % High 1-3 [facility] Erythrocyte distribution wid th Auto (RBC) [Ratio]Ordered By: Jennyfer Winkler on 01-29-2024 Erythrocyte distribution width (RBC) [Ratio] 12.1 % 12.0-14.8 [facility] Giant platelets/100 leukocyt es [Ratio] in Blood by Manual countOrdered By: Jennyfer Winkler on 01-29-2024 Giant platelets/100 WBC Manual cnt (Bld) [Ratio] 1 /100{WBC} [facility] Globulin Calc (S) [Mass/Vol] Ordered By: Jennyfer Winkler on 01-29-2024 Globulin (S) [Mass/Vol] 3.1 g/dL F [facility] Glucose [Mass/volume] in Ser um or PlasmaOrdered By: Jennyfer Winkler on 01-29-2024 Glucose [Mass/Vol] 103 mg/dL High 70-100 [facility] Comment on above: ADA recommended refe rence rangeRandom Glucose Reference Range is dependent on time and content of last meal. Glucose of more than 200 mg/dL in a nonstressed, ambulatory subject supports the diagnosis of Diabetes Mellitus. Glucose [Mass/volume] in Uri ne by Test stripOrdered By: Jennyfer Winkler on 01-29-2024 Glucose Test strip (U) [Mass/Vol] Normal mg/dL Normal [facility] Hematocrit Auto (Bld) [Volum e fraction]Ordered By: Jennyfer Winkler on 01-29-2024 Hematocrit (Bld) [Volume fraction] 54.1 % High 38.8-50.0 [facility] Hemoglobin Test strip Ql (U) Ordered By: Jennyfer Winkler on 01-29-2024 Hemoglobin Ql (U) Negative Negative [facility] Hemoglobin [Mass/volume] in BloodOrdered By: Jennyfer Winkler on 01-29-2024 Hemoglobin (Bld) [Mass/Vol] 18.9 g/dL High 13.0-17.0 [facility] Ketones Test strip Ql (U)Ord ered By: Jennyfer Winkler on 01-29-2024 Ketones Ql (U) Negative Negative [facility] Leukocyte esterase [Presence ] in Urine by Test stripOrdered By: Jennyfer Winkler on 01-29-2024 Leukocyte esterase Test strip Ql (U) Negative Negative [facility] Leukocytes [#/volume] correc ernst for nucleated erythrocytes in Blood by Automated counOrdered By: Jennyfer Winkler on 01-29-2024 WBC corrected for nucl RBC Auto (Bld) [#/Vol] 6.8 10*3/uL 4.1-10.5 [facility] Lipase [Enzymatic activity/v olume] in Serum or PlasmaOrdered By: Jennyfer Winkler on 01-29-2024 Lipase [Catalytic activity/Vol] 29.0 U/L 11.0-82.0 [facility] Lymphocytes Auto (Bld) [#/Vo l]Ordered By: Jennyfer Winkler on 01-29-2024 Lymphocytes (Bld) [#/Vol] N/A [facility] Lymphocytes/100 WBC Auto (Bl d)Ordered By: Jennyfer Winkler on 01-29-2024 Lymphocytes/100 WBC (Bld) N/A [facility] Lymphocytes/100 WBC Manual c nt (Bld)Ordered By: Jennyfer Winkler on 01-29-2024 Lymphocytes/100 WBC (Bld) 28 % 18-42 [facility] MCH Auto (RBC) [Entitic mass ]Ordered By: Jennyfer Winkler on 01-29-2024 MCH (RBC) [Entitic mass] 32.4 pg 27.5-35.2 [facility] MCHC Auto (RBC) [Mass/Vol]Or dered By: Jennyfer Winkler on 01-29-2024 MCHC (RBC) [Mass/Vol] 35.0 g/dL 32.5-35.6 [facility] MCV Auto (RBC) [Entitic vol] Ordered By: Jennyfer Winkler on 01-29-2024 MCV (RBC) [Entitic vol] 92.7 fL 83.5-101 [facility] Monocyte distribution width [Entitic volume] in Blood by AutomatedOrdered By: Jennyfer Winkler on 01-29-2024 Monocyte distribution width Auto (Bld) [Entitic vol] 18.41 % 0.00-20.00 [facility] Monocytes Auto (Bld) [#/Vol] Ordered By: Jennyfer Winkler on 01-29-2024 Monocytes (Bld) [#/Vol] N/A [facility] Monocytes/100 WBC Auto (Bld) Ordered By: Jennyfer Winkler on 01-29-2024 Monocytes/100 WBC (Bld) N/A [facility] Monocytes/100 WBC Manual cnt (Bld)Ordered By: Jennyfer Winkler on 01-29-2024 Monocytes/100 WBC (Bld) 4 % 2-11 [facility] Neutrophils Auto (Bld) [#/Vo l]Ordered By: Jennyfer Winkler on 01-29-2024 Neutrophils (Bld) [#/Vol] N/A [facility] Neutrophils/100 WBC Auto (Bl d)Ordered By: Jennyfer Winkler on 01-29-2024 Neutrophils/100 WBC (Bld) N/A [facility] Nitrite Test strip Ql (U)Ord ered By: Jennyfer Winkler on 01-29-2024 Nitrite Ql (U) Negative Negative [facility] No Panel InformationOrdered By: Jennyfer Winkler on 01-29-2024 Estimated GFR (CKD-EPI) > 60.0 mL/Min [facility] Creatinine Clearance (Chem 83.32 [facility] Nucleated erythrocytes [Pres ence] in Blood by Automated countOrdered By: Jennyfer Winkler on 01-29-2024 Nucleated RBC Auto Ql (Bld) N/A [facility] Platelet adequacy [Presence] in Blood by Light microscopyOrdered By: Jennyfer Winkler on 01-29-2024 Platelets LM Ql (Bld) Normal Normal [facility] Platelet mean volume Auto (B ld) [Entitic vol]Ordered By: Jennyfer Winkler on 01-29-2024 Platelet mean volume (Bld) [Entitic vol] 8.1 fL 6.6-10.1 [facility] Platelet morphology finding [Identifier] in BloodOrdered By: Jennyfer Winkler on 01-29-2024 Platelet morphology finding Nom (Bld) Normal Normal [facility] Platelets Auto (Bld) [#/Vol] Ordered By: Jennyfer Winkler on 01-29-2024 Platelets (Bld) [#/Vol] 245 10*3/uL 150-450 [facility] Potassium [Moles/volume] in Serum or PlasmaOrdered By: Jennyfer Winkler on 01-29-2024 Potassium [Moles/Vol] 3.9 mmol/L 3.5-5.1 [facility] Protein Test strip (U) [Mass /Vol]Ordered By: Jennyfer Winkler on 01-29-2024 Protein (U) [Mass/Vol] Negative Negative [facility] Protein [Mass/volume] in Ser um or PlasmaOrdered By: Jennyfre Winkler on 01-29-2024 Protein [Mass/Vol] 8.0 g/dL 6.4-8.9 [facility] RBC Auto (Bld) [#/Vol]Ordere d By: Jennyfer Winkler on 01-29-2024 RBC (Bld) [#/Vol] 5.83 10*6/uL High 3.90-5.60 [facility] RBC morphologyOrdered By: Ella Winkler on 01-29-2024 RBC morphology finding Nom (Bld) Normal Normal [facility] Segmented neutrophils/100 WB C Manual cnt (Bld)Ordered By: Jennyfer Winkler on 01-29-2024 Segmented neutrophils/100 WBC (Bld) 58 % 50-70 [facility] Serum or plasma albumin/glob ulin mass ratioOrdered By: Jennyfer Winkler on 01-29-2024 Albumin/Globulin [Mass ratio] 1.6 {ratio} [facility] Serum or plasma anion gap de terminationOrdered By: Jennyfer Winkler on 01-29-2024 Anion gap [Moles/Vol] 10.5 mmol/L 6.0-15.0 [facility] [facility] or plasma non-glucuron idated bilirubin measurement (mass/volume)Ordered By: Jennyfer Winkler on 01-29-2024 Bilirubin.indirect [Mass/Vol] 0.7 mg/dL [facility] Sodium [Moles/volume] in Ser um or PlasmaOrdered By: Jennyfer Winkler on 01-29-2024 Sodium [Moles/Vol] 131 mmol/L Low 136-145 [facility] Specific gravity Test strip (U) [Rel density]Ordered By: Jennyfer Winkler on 01-29-2024 Specific gravity (U) [Rel density] 1.003 1.001-1.030 [facility] Urea nitrogen [Mass/volume] in Serum or PlasmaOrdered By: Jennyfer Winkler on 01-29-2024 Urea nitrogen [Mass/Vol] 6 mg/dL Low 7-25 [facility] Urine appearanceOrdered By: Jennyfer Winkler on 01-29-2024 Appearance (U) Clear Clear [facility] Urobilinogen Test strip (U) [Mass/Vol]Ordered By: Jennyfer Winkler on 01-29-2024 Urobilinogen (U) [Mass/Vol] Normal mg/dL Normal [facility] Variant lymphocytes/100 WBC Manual cnt (Bld)Ordered By: Jennyfer Winkler on 01-29-2024 Variant lymphocytes/100 WBC (Bld) 6 % 0-12 [facility] WBC Auto (Bld) [#/Vol]Ordere d By: Jennyfer Winkler on 01-29-2024 WBC (Bld) [#/Vol] 6.8 10*3/uL 4.1-10.5 [facility] pH Test strip (U)Ordered By: Jennyfer Winkler on 01-29-2024 pH (U) 7.5 [pH] 5.0-9.0 [facility] CBC AUTO DIFFon 03-26-2022 BASO # 0.1 103/ul Normal 0.0-0.1 [facility] Comment on above: Performed By: #### C BC #### [facility] [address] [address] [address] Pravin Travis Basophils/100 WBC (Bld) 0.7 % Normal 0.2-2.0 [facility] Comment on above: Performed By: #### C BC #### [facility] [address] [place] [address] Dr. Pravin Travis EO # 0.6 103/ul Normal 0.0-0.7 [facility] Comment on above: Performed By: #### C BC #### [facility] [address] [place] [address] Dr. Pravin Travis Eosinophils/100 WBC (Bld) 7.4 % Critically high 0.9-7.0 [facility] Comment on above: Performed By: #### C BC #### [facility] [address] [place] [address] Dr. Pravin Travis Erythrocyte distribution width (RBC) [Ratio] 12.3 % Normal 11.0-15.0 [facility] Comment on above: Performed By: #### C BC #### [facility] [address] [place] [address] Dr. Pravin Travis Hematocrit (Bld) [Volume fraction] 47.2 % Normal 42.0-54.0 [facility] Comment on above: Performed By: #### C BC #### [facility] [address] [place] [address] Dr. Pravin Travis Hemoglobin (Bld) [Mass/Vol] 16.2 g/dL Normal 14.0-18.0 [facility] Comment on above: Performed By: #### C BC #### [facility] [address] [place] [address] Dr. Pravin Travis IG # 0.03 10e3/ul Normal 0.00-0.03 [facility] Comment on above: Performed By: #### C BC #### [facility] [address] [place] [address] Dr. Pravin Travis IG % 0.4 % Normal 0.0-0.5 [facility] Comment on above: Performed By: #### C BC #### [facility] [address] [place] [address] Dr. Pravin Travis LYMPH # 2.1 103/ul Normal 1.2-3.8 [facility] Comment on above: Performed By: #### C BC #### [facility] [address] [place] [address] Dr. Pravin Travis Lymphocytes/100 WBC (Bld) 24.3 % Normal 20.5-60.0 [facility] Comment on above: Performed By: #### C BC #### [facility] [address] [place] [address] Dr. Pravin Travis MANUAL DIFF REQ NO Normal [facility] Comment on above: Performed By: #### C BC #### [facility] [address] [place] [address] Dr. Pravin Travis MCH (RBC) [Entitic mass] 32.6 pg Normal 25.9-34.0 [facility] Comment on above: Performed By: #### C BC #### [facility] [address] [place] [address] Dr. Pravin Travis MCHC (RBC) [Mass/Vol] 34.3 g/dL Normal 29.9-35.2 [facility] Comment on above: Performed By: #### C BC #### [facility] [address] [place] [address] Dr. Pravin Travis MCV (RBC) [Entitic vol] 95.0 fL Critically high 80.0-94 .0 [facility] Comment on above: Performed By: #### C BC #### [facility] [address] [place] [address] Dr. Pravin Travis MONO # 0.8 103/ul Normal 0.3-0.8 [facility] Comment on above: Performed By: #### C BC #### [facility] [address] [place] [address] Dr. Pravin Travis Monocytes/100 WBC (Bld) 9.7 % Normal 1.7-12.0 [facility] Comment on above: Performed By: #### C BC #### [facility] [address] [place] [address] Dr. Pravin Travis NEUT # 4.9 103/ul Normal 1.4-6.5 [facility] Comment on above: Performed By: #### C BC #### [facility] [address] [place] [address] Dr. Pravin Travis Neutrophils/100 WBC (Bld) 57.5 % Normal 43.0-75.0 [facility] Comment on above: Performed By: #### C BC #### [facility] [address] [place] [address] Dr. Pravin Travis Platelet mean volume (Bld) [Entitic vol] 10.4 fL Normal 9.5-13.5 [facility] Comment on above: Performed By: #### C BC #### [facility] [address] [place] [address] Dr. Pravin Travis PLT 215 103/ul Normal 150-450 [facility] Comment on above: Performed By: #### C BC #### [facility] [address] [place] [address] Dr. Pravin Travis RBC 4.97 106/ul Normal 4.70-6.10 [facility] Comment on above: Performed By: #### C BC #### [facility] [address] [place] [address] Dr. Pravin Travis WBC 8.6 103/ul Normal 4.0-11.0 [facility] Comment on above: Performed By: #### C BC #### [facility] [address] [place] [address] ABD/PELV W CONon [...] by: ALANA MORROW Date: 2022-03-26 01:45 Normal [facility] ER URINE PROFILEon 2 Bilirubin Ql (U) Negative Normal NEGATIVE [facility] Comment on above: Performed By: #### E RUR #### [facility] [address] [place] [address] Dr. Pravin Travis Clarity (U) SL CLOUDY Abnormal CLEAR [facility] Comment on above: Performed By: #### E RUR #### [facility] [address] [place] [address] Dr. Pravin Travis Color (U) LT. YELLOW Normal YELLOW [facility] Comment on above: Performed By: #### E RUR #### [facility] [address] [place] [address] Dr. Pravin Travis ERUAHMayi A micrscopic examination will be performed if indicated. Normal [facility] Comment on above: Performed By: #### E RUR #### [facility] [address] [place] [address] Dr. Pravin Travis Glucose Ql (U) Negative Normal NEGATIVE [facility] Comment on above: Performed By: #### E RUR #### [facility] [address] [place] [address] Dr. Pravin Travis Hemoglobin Ql (U) Negative Normal NEGATIVE [facility] Comment on above: Performed By: #### E RUR #### [facility] [address] [place] [address] Dr. Pravin Travis Ketones Ql (U) Negative Normal NEGATIVE [facility] Comment on above: Performed By: #### E RUR #### [facility] [address] [place] [address] Dr. Pravin Travis LEUKOCYTES Negative Normal NEGATIVE [facility] Comment on above: Performed By: #### E RUR #### [facility] [address] [place] [address] Dr. Pravin Travis Nitrite Ql (U) Negative Normal NEGATIVE [facility] Comment on above: Performed By: #### E RUR #### [facility] [address] [place] [address] Dr. Pravin Travis pH (U) 7.5 [pH] Normal 5-9 [facility] Comment on above: Performed By: #### E RUR #### [facility] [address] [place] [address] Dr. Pravin Travis SPEC GRAVITY 1.015 Normal 1.005-<=1.02 5 [facility] Comment on above: Performed By: #### E RUR #### [facility] [address] [place] [address] Dr. Pravin Travis UA PROTEIN Negative Normal NEGATIVE/ TRACE [facility] Comment on above: Performed By: #### E RUR #### [facility] [address] [place] [address] Dr. Pravin Travis UR MICRO IND NOT INDICATED Normal [facility] Comment on above: Performed By: #### E RUR #### [facility] [address] [place] [address] Dr. Pravin Travis Urobilinogen Qn (U) 0.2 {Katie'U}/dL Normal 0.2 - 1. 0 [facility] Comment on above: Performed By: #### E RUR #### [facility] [address] [address] [address] Pravin Travis PROF 14(COMP METB)on 022 Albumin [Mass/Vol] 4.3 g/dL Normal 3.4-5.0 [facility] Comment on above: Performed By: #### C MP #### [facility] [address] [address] [address] Pravin Travis Albumin/Globulin [Mass ratio] 1.3 {ratio} Normal [facility] Comment on above: Performed By: #### C MP #### [facility] [address] [place] [address] Dr. Pravin Travis ALP [Catalytic activity/Vol] 92 U/L Normal 46-116 [facility] Comment on above: Performed By: #### C MP #### [facility] [address] [place] [address] Dr. Pravin Travis ALT [Catalytic activity/Vol] 31 U/L Normal 16-63 [facility] Comment on above: Performed By: #### C MP #### [facility] [address] [place] [address] Dr. Pravin Travis Anion gap [Moles/Vol] 10.9 mmol/L Normal [facility] Comment on above: Performed By: #### C MP #### [facility] [address] [place] [address] Dr. Pravin Travis AST [Catalytic activity/Vol] 31 U/L Normal 15-37 [facility] Comment on above: Performed By: #### C MP #### [facility] [address] [place] [address] Dr. Pravin Travis Bilirubin [Mass/Vol] 0.5 mg/dL Normal 0.2-1.0 [facility] Comment on above: Performed By: #### C MP #### [facility] [address] [place] [address] Dr. Pravin Travis Calcium [Mass/Vol] 9.3 mg/dL Normal 8.5-10.1 [facility] Comment on above: Performed By: #### C MP #### [facility] [address] [address] [address] Pravin Travis Chloride [Moles/Vol] 103 mmol/L Normal 98-107 [facility] Comment on above: Performed By: #### C MP #### [facility] [address] [place] [address] Dr. Pravin Travis CO2 [Moles/Vol] 29.8 mmol/L Normal 21.0-32.0 [facility] Comment on above: Performed By: #### C MP #### [facility] [address] [place] [address] Dr. Pravin Travis Creatinine [Mass/Vol] 1.22 mg/dL Normal 0.70-1.30 [facility] Comment on above: Performed By: #### C MP #### [facility] [address] [place] [address] Dr. Parvin Travis EGFR-AF STATELESS >60 Normal >=60 [facility] Comment on above: Performed By: #### C MP #### [facility] [address] [place] [address] Dr. Pravin Travis EGFR-NON AF STATELESS >60 Normal >=60 [facility] Comment on above: Performed By: #### C MP #### [facility] [address] [place] [address] Dr. Pravin Travis Globulin (S) [Mass/Vol] 3.4 g/dL Normal [facility] Comment on above: Performed By: #### C MP #### [facility] [address] [address] [address] Pravin Travis Glucose [Mass/Vol] 91 mg/dL Normal 74-106 [facility] Comment on above: Performed By: #### C MP #### [facility] [address] [place] [address] Dr. Pravin Travis Potassium [Moles/Vol] 3.7 mmol/L Normal 3.5-5.1 [facility] Comment on above: Performed By: #### C MP #### [facility] [address] [place] [address] Dr. Pravin Travis Protein [Mass/Vol] 7.7 g/dL Normal 6.4-8.2 [facility] Comment on above: Performed By: #### C MP #### [facility] [address] [address] [address] Pravin Travis Sodium [Moles/Vol] 140 mmol/L Normal 136-145 [facility] Comment on above: Performed By: #### C MP #### [facility] [address] [address] [address] Pravin Travis Urea nitrogen [Mass/Vol] 11.0 mg/dL Normal 7.0-18.0 [facility] Comment on above: Performed By: #### C MP #### [facility] [address] [place] [address] Dr. Pravin Travsi Urea nitrogen/Creatinine [Mass ratio] 9.0 mg/mg Normal [facility] Comment on above: Performed By: #### C MP #### [facility] [address] [place] [address] Dr. Pravin Travis COVID Quick Testingon 2021 Result Positive [employer] Other COVID Quick Testingon 2020 Result Negative [employer] Other Quick Fluon 08-11-2021 FLUAV Ab CF (S) [Titer] Negative [employer] Other FLUBV Ab CF (S) [Titer] Negative [facility] Other Vital Signs Date Time Vital Sign Value Performing Clinician Facility 03-19-2025 16:30-0400 Diastolic blood pressure 113 mm[Hg] Cisco Furlong DO Work Phone: [facility] 03-19-2025 16:30-0400 Heart rate 76 /min [employer] DO Work Phone: [facility] 03-19-2025 16:30-0400 Respiratory rate 16 /min [employer] DO Work Phone: [facility] 03-19-2025 16:30-0400 SaO2% (BldA) [Mass fraction] 97 % Cisco Furlong DO Work Phone: [facility] 03-19-2025 16:30-0400 Systolic blood pressure 143 mm[Hg] Cisco Furlong DO Work Phone: [facility] 03-19-2025 16:00-0400 Body temperature 96.8 [degF] Cisco Furlong DO Work Phone: [facility] 03-19-2025 11:36-0400 Body height 172.72 cm Cisco Furlong DO Work Phone: [facility] 03-19-2025 11:36-0400 Body weight 90.9 kg Cisco Furlong DO Work Phone: [facility] 02-28-2025 12:24-0400 Body height 175.3 cm Lydia Sankovic PA-C Work Phone: [facility] 02-28-2025 12:24-0400 Body mass index (BMI) [Ratio] 29.53 kg/m2 Lydia Sankovic PA-C Work Phone: [facility] 02-28-2025 12:24-0400 Body temperature 97 [degF] Lydia Sankovic PA-C Work Phone: [facility] 02-28-2025 12:24-0400 Body weight 90.72 kg Lydia Sankovic PA-C Work Phone: [facility] 02-28-2025 12:24-0400 Diastolic blood pressure 93 mm[Hg] Lydia Sankovic PA-C Work Phone: [facility] 02-28-2025 12:24-0400 Heart rate 76 /min Lydia Sankovic PA-C Work Phone: [facility] 02-28-2025 12:24-0400 SaO2% (BldA) [Mass fraction] 97 % Lydia Sankovic PA-C Work Phone: [facility] 02-28-2025 12:24-0400 Systolic blood pressure 141 mm[Hg] Lydia Noelle ALAN-Remberto Work Phone: [facility] 02-18-2025 13:45-0400 Body height 172.72 cm Cisco Furlong DO Work Phone: [facility] 02-18-2025 13:45-0400 Body mass index (BMI) [Ratio] 28.8 kg/m2 Cisco Furlong DO Work Phone: [facility] 02-18-2025 13:45-0400 Body weight 86.18 kg Cisco Furlong DO Work Phone: [facility] 01-09-2025 12:53-0400 Diastolic blood pressure 109 mm[Hg] Mohamad Mouchli [facility] 01-09-2025 12:53-0400 Mean blood pressure 131 mm[Hg] Mohamad Mouchli [facility] 01-09-2025 12:53-0400 Systolic blood pressure 174 mm[Hg] Mohamad Mouchli [facility] 01-09-2025 12:43-0400 Blood Pressure Location Mohamad Mouchli [facility] 01-09-2025 12:43-0400 Diastolic blood pressure 117 mm[Hg] Mohamad Mouchli [facility] 01-09-2025 12:43-0400 Heart rate 80 /min Mohamad Mouchli [facility] 01-09-2025 12:43-0400 Systolic blood pressure 179 mm[Hg] Mohamad Mouchli [facility] 12-10-2024 13:07-0400 Body height 172.7 cm Cisco Furlong DO Work Phone: [facility] 12-10-2024 13:07-0400 Body mass index (BMI) [Ratio] 29.47 kg/m2 Cisco Furlong DO Work Phone: [facility] 12-10-2024 13:07-0400 Body temperature 98.4 [degF] Cisco Furlong DO Work Phone: [facility] 12-10-2024 13:07-0400 Body weight 87.91 kg Cisco Furlong DO Work Phone: [facility] 12-10-2024 13:07-0400 Diastolic blood pressure 90 mm[Hg] Cisco Furlong DO Work Phone: [facility] 12-10-2024 13:07-0400 Heart rate 102 /min Cisco Furlong DO Work Phone: [facility] 12-10-2024 13:07-0400 Respiratory rate 18 /min Cisco Furlong DO Work Phone: [facility] 12-10-2024 13:07-0400 SaO2% (BldA) [Mass fraction] 97 % Cisco Furlong DO Work Phone: [facility] 12-10-2024 13:07-0400 Systolic blood pressure 140 mm[Hg] Cisco Furlong DO Work Phone: [facility] 09-11-2024 14:23-0500 Body height 172.7 cm Cisco Furlong DO Work Phone: [facility] 09-11-2024 14:23-0500 Body mass index (BMI) [Ratio] 28.89 kg/m2 Cisco Furlong DO Work Phone: [facility] 09-11-2024 14:23-0500 Body temperature 97.9 [degF] Cisco Furlong DO Work Phone: [facility] [employer] [facility] 09-11-2024 14:23-0500 Body weight 86.18 kg Cisco Furlong DO Work Phone: [facility] [employer] [facility] 09-11-2024 14:23-0500 Diastolic blood pressure 90 mm[Hg] Cisco Furlong DO Work Phone: [facility] [employer] [facility] 09-11-2024 14:23-0500 Heart rate 105 /min Cisco Furlong DO Work Phone: [facility] [employer] [facility] 09-11-2024 14:23-0500 Respiratory rate 20 /min Cisco Furlong DO Work Phone: [facility] 09-11-2024 14:23-0500 SaO2% (BldA) [Mass fraction] 99 % Cisco Furlong DO Work Phone: [facility] 09-11-2024 14:23-0500 Systolic blood pressure 140 mm[Hg] Cisco Furlong DO Work Phone: [facility] 03-15-2024 16:08-0400 Body height 172.7 cm Cisco Furlong DO Work Phone: [facility] 03-15-2024 16:08-0400 Body mass index (BMI) [Ratio] 27.79 kg/m2 Cisco Furlong DO Work Phone: [facility] 03-15-2024 16:08-0400 Body temperature 97.7 [degF] Cisco Furlong DO Work Phone: [facility] 03-15-2024 16:08-0400 Body weight 82.92 kg Cisco Furlong DO Work Phone: [facility] 03-15-2024 16:08-0400 Diastolic blood pressure 70 mm[Hg] Cisco Furlong DO Work Phone: [facility] 03-15-2024 16:08-0400 Heart rate 79 /min Cisco Furlong DO Work Phone: [facility] 03-15-2024 16:08-0400 SaO2% (BldA) [Mass fraction] 97 % Cisco Furlong DO Work Phone: [facility] 03-15-2024 16:08-0400 Systolic blood pressure 120 mm[Hg] Cisco Furlong DO Work Phone: [facility] 03-03-2024 14:00-0400 Diastolic blood pressure 95 mm[Hg] DO Cisco Furlong Work Phone: [facility] 03-03-2024 14:00-0400 Heart rate 79 /min DO Cisco Furlong Work Phone: [facility] 03-03-2024 14:00-0400 Respiratory rate 18 /min DO Cisco Furlong Work Phone: [facility] 03-03-2024 14:00-0400 SaO2% (BldA) [Mass fraction] 95 % DO Cisco Furlong Work Phone: [facility] 03-03-2024 14:00-0400 Systolic blood pressure 147 mm[Hg] DO Cisco Furlong Work Phone: [facility] 03-03-2024 11:20-0400 Body temperature 98.2 [degF] DO Cisco Furlong Work Phone: [facility] 03-03-2024 11:18-0400 Body height 172.72 cm DO Cisco Furlong Work Phone: [facility] 03-03-2024 11:18-0400 Body weight 80.65 kg DO Cisco Furlong Work Phone: [facility] 02-02-2024 11:29-0400 Body temperature 98.6 [degF] Didi Orzech [facility] 02-02-2024 11:29-0400 Diastolic blood pressure 81 mm[Hg] Didi Orzech [facility] 02-02-2024 11:29-0400 Heart rate 77 /min Didi Orzech [facility] 02-02-2024 11:29-0400 Respiratory rate 16 /min Didi Orzech [facility] 02-02-2024 11:29-0400 Systolic blood pressure 136 mm[Hg] Ddii Orzech [facility] 01-30-2024 01:11-0400 Heart rate 159 /min DO Cisco Furlong Work Phone: [facility] 01-30-2024 00:30-0400 Respiratory rate 22 /min DO Cisco Furlong Work Phone: [facility] 01-30-2024 00:30-0400 SaO2% (BldA) [Mass fraction] 97 % DO Cisco Furlong Work Phone: [facility] 01-29-2024 23:38-0400 Diastolic blood pressure 95 mm[Hg] DO Cisco Furlong Work Phone: [facility] 01-29-2024 23:38-0400 Systolic blood pressure 136 mm[Hg] DO Cisco Furlong Work Phone: [facility] 01-29-2024 22:45-0400 Body height 172.72 cm DO Cisco Furlong Work Phone: [facility] 01-29-2024 22:45-0400 Body weight 86.2 kg DO Cisco Furlong Work Phone: [facility] 01-29-2024 22:44-0400 Body temperature 98.3 [degF] DO Cisco Bonilla Work Phone: [facility] 12-09-2023 08:47-0400 Body height 172.7 cm Michelle Francis [employer] PROTECTOR-RADIOLOGY THERAPIST Work Phone: [facility] [employer] 12-09-2023 08:47-0400 Body mass index (BMI) [Ratio] 30.08 kg/m2 Michelle Tito [employer] PROTECTOR-RADIOLOGY THERAPIST Work Phone: [employer] 12-09-2023 08:47-0400 Body temperature 98.29 [degF] Michelle Francis [employer] PROTECTOR-RADIOLOGY THERAPIST Work Phone: [facility] [employer] 12-09-2023 08:47-0400 Body weight 89.72 kg Michelle Tito [employer] PROTECTOR-RADIOLOGY THERAPIST [facility] 12-09-2023 08:47-0400 Diastolic blood pressure 86 mm[Hg] Michelle Tito [employer] PROTECTOR-RADIOLOGY THERAPIST Work Phone: [employer] 12-09-2023 08:47-0400 Heart rate 82 /min Michelle Tito [employer] PROTECTOR-RADIOLOGY THERAPIST [facility] 12-09-2023 08:47-0400 Respiratory rate 18 /min Michellenisha Francis GAME AND FISH PROTECTOR-RADIOLOGY THERAPIST [facility] 12-09-2023 08:47-0400 SaO2% (BldA) [Mass fraction] 96 % Michelle Tito [employer] PROTECTOR-RADIOLOGY THERAPIST Work Phone: [facility] 12-09-2023 08:47-0400 Systolic blood pressure 120 mm[Hg] Michelle Tito [employer] PROTECTOR-RADIOLOGY THERAPIST Work Phone: [facility] 09-01-2021 13:30-0500 Body height 172.72 cm Tawnya Andre Other [employer] Other 09-01-2021 13:30-0500 Body mass index (BMI) [Ratio] 31.93 kg/m2 Tawnya Andre Other [employer] Other 09-01-2021 13:30-0500 Body temperature 97.4 [degF] Tawnya Andre Other [employer] Other 09-01-2021 13:30-0500 Body weight 95.26 kg Tawnya Andre Other [employer] Other 09-01-2021 13:30-0500 Respiratory rate 18 /min Tawnya Andre Other [employer] Other 09-01-2021 13:30-0500 SaO2% (BldA) [Mass fraction] 98 % Tawnya Andre Other [employer] Other 08-11-2021 12:00-0500 Body height 172.72 cm Mary Christine Other [employer] Other 08-11-2021 12:00-0500 Body mass index (BMI) [Ratio] 31.93 kg/m2 Mary Christine Other [employer] Other 08-11-2021 12:00-0500 Body temperature 96.9 [degF] Mary King Other [employer] Other 08-11-2021 12:00-0500 Body weight 95.26 kg Mary Christine Other [employer] Other 08-11-2021 12:00-0500 Respiratory rate 18 /min Marygunner King Other [employer] Other 08-11-2021 12:00-0500 SaO2% (BldA) [Mass fraction] 96 % Mary Christine Other [employer] Other Encounters Encounter Date Encounter Type Care Provider Facility Start: 04-23-2025 End: 04-23-2025 ambulatory Vivian Brady Facility:[facility] Start: 04-23-2025 End: 04-23-2025 Patient encounter procedure Vivian Brady [facility] Start: 04-08-2025 End: 04-08-2025 ambulatory Cisco Bonilla DO Work Phone: [facility] Work Phone: Start: 04-08-2025 End: 04-08-2025 Patient [...] Start: 04-02-2025 End: 04-02-2025 ambulatory LYDIA DUBOISJESSICA Facility:[facility] Start: 03-22-2025 End: 03-27-2025 Refill Cisco Thomason Furlong DO Work Phone: [facility] Comment on above: Anxiety Start: 03-19-2025 End: 03-19-2025 Admission to same day surgery center Ehsan Avina DO -[facility] [place] Start: 03-19-2025 End: 03-19-2025 ambulatory Cisco Furlong DO Work Phone: [facility] Work Phone: Start: 03-18-2025 End: 03-18-2025 Patient encounter procedure Ehsan Avina DO -Pre-Surgical Testing Work Phone: Start: 03-18-2025 End: 03-18-2025 ambulatory Cisco Furlong DO Work Phone: [facility] Work Phone: Start: 03-18-2025 Encounter for preprocedural laboratory examination Ehsan Avina [facility] Start: 03-13-2025 End: 03-13-2025 ambulatory Cisco Furlong DO Work Phone: [facility] Work Phone: Start: 03-13-2025 End: 03-13-2025 Patient encounter procedure Ehsan Avina DO -[facility] Work Phone: Start: 03-13-2025 End: 03-13-2025 Patient encounter procedure Ehsan Avina DO -[facility] Start: 03-13-2025 End: 03-13-2025 ambulatory Cisco Furlong DO Work Phone: [facility] Work Phone: Start: 03-12-2025 Non-patient / Non-visit Ehsan alanis DO -[facility] Work Phone: Start: 03-07-2025 End: 03-07-2025 [...] Start: 02-28-2025 End: 02-28-2025 ambulatory FELIPE ARIAS Facility:[facility] Start: 02-18-2025 End: 02-18-2025 ambulatory Cisco Bonilla DO Work Phone: [facility] Work Phone: Start: 02-18-2025 End: 02-18-2025 Patient encounter procedure Ehsan Avina DO -[facility] Work Phone: Start: 02-11-2025 End: [...] Start: 01-24-2025 End: 01-24-2025 [facility] Start: 01-24-2025 End: 01-24-2025 Patient encounter procedure Vivian Brady [facility] Start: 01-16-2025 End: 01-16-2025 Transcribe Orders Vivian Brady MD Work Phone: Referring Physician Comment on above: Constipation by outl et dysfunction (Primary Dx); Stress-related physiological response affecting medical condition Start: 01-09-2025 End: 01-09-2025 ambulatory Vivian Brady Facility:[facility] Start: 01-09-2025 End: 01-09-2025 Patient encounter procedure Vivian Brady [facility] Start: 12-31-2024 ambulatory Vivian Brady Facilit y:Satish Start: 12-31-2024 End: 12-31-2024 Telephone encounter Linda Marc CMA [facility] [...] Family Medicine Start: 12-10-2024 End: 12-10-2024 ambulatory [facility] Start: 12-10-2024 Encounter for genera l adult medical examination without abnormal findings [facility] Start: 12-10-2024 End: 12-10-2024 Patient encounter status Cisco Bonilla DO Work Phone: [facility] [employer] Start: 12-10-2024 End: 12-10-2024 Periodic preventive med est patient 40-64yrs Cisco Bonilla DO Work Phone: [facility] Internal Medicine - Family Medicine Comment on above: Well adult exam (Marilynn lawson Dx); Anxiety; Overweight; Iron overload; Encounter for screening for malignant neoplasm of prostate; Ex-smoker; Hypogonadism in male; Severe episode of recurrent major depressive disorder, without psychotic features ([facility]); Irritable bowel syndrome with both constipation and diarrhea Start: 12-10-2024 End: 12-10-2024 ambulatory [facility] Start: 12-10-2024 Encounter for genera l adult medical examination without abnormal findings [facility] Start: 11-02-2024 End: 11-02-2024 Orders Only Cisco Bonilla DO Work Phone: [facility] Start: 10-15-2024 End: 10-15-2024 Orders Only [...] 05-15-2024 Emergency department patient visit CISCO BONILLA [facility] Start: 04-04-2024 End: 04-10-2024 Telephone encounter Cisco Bonilla DO Work Phone: [facility] Internal Medicine Family Medicine Start: 04-03-2024 End: 04-03-2024 Patient encounter procedure Didi X Orzech [facility] Start: 03-16-2024 End: 03-16-2024 Orders Only [...] Start: 03-15-2024 End: 03-15-2024 ambulatory CISCOCHELSEA BONILLA [facility] Start: 03-14-2024 End: 03-14-2024 Orders Only Cisco Bonilla DO Work Phone: [facility] Start: 03-03-2024 End: 03-03-2024 Emergency department patient visit DO Cisco Bonilla Work Phone: [facility] Work Phone: Start: 02-20-2024 End: 02-20-2024 Orders Only Cisco Bonilla DO Work Phone: [facility] Start: 02-17-2024 End: 02-18-2024 Evaluation and management of inpatient JENNYFER AUGUSTIN [facility] Start: 02-13-2024 End: 02-15-2024 Telephone encounter Jennyfer [...] procedure Didi X Orzech [facility] Start: 01-31-2024 End: 02-01-2024 Telephone encounter Barbara De La Torre CMA [facility] Start: 01-29-2024 End: 01-30-2024 Emergency department patient visit DO Cisco Carrillong Work Phone: [facility] Work Phone: Start: 12-09-2023 End: 12-09-2023 Office outpatient visit 15 minutes Michelle Francis GAME AND FISH PROTECTOR-[facility] Work Phone: [facility] - [facility] Comment on above: Irritable bowel synd chaitanya with constipation (Primary Dx); Gastroesophageal reflux disease, unspecified whether esophagitis present; 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 ([facility] Start: 03-26-2022 End: 03-26-[address] CISCO BONILLA Facility: Start: 09-01-2021 End: 09-01-2021 ambulatory Tawnya Andre Other [employer] Other Start: 09-01-2021 Office outpatient vi sit 15 minutes Tawnya Andre [facility] Start: 08-11-2021 End: 08-11-2021 ambulatory Mary King Other [employer] Other Start: 08-11-2021 Office outpatient vi sit 15 minutes Mary King [facility] [place] Start: 08-30-2016 End: 08-31-2016 Ambulatory GRADY DHALIWAL Facility:[facility] Procedures Date Procedure Procedure Detail Performing Clinician Start: 03-19-2025 Open reduction of fr acture with internal fixation Cisco Carcamolong DO Work Phone: Start: 03-19-2025 X-ray of right foot Den nis Furlong DO Work Phone: Start: 03-13-2025 X-ray of right foot Den nis Furlong DO Work Phone: Start: 02-28-2025 [facility]ULT [place] [facility] Violette Maurer GAME AND FISH PROTECTOR.RADIOLOGY THERAPIST Work Phone: Start: 12-10-2024 Adult depression scr [...] Adult depression scr eening assessment Michelle Francis GAME AND FISH PROTECTOR-RADIOLOGY THERAPIST Work Phone: [facility] [place] [facility] [employer] Plan of Treatment Date Care Activity Detail Author Start: 02-16-2034 Screening for malign ant neoplasm of colon Colonoscopy [facility] Start: 12-10-2029 Lipid panel Lipid Screening [facility] Start: 12-10-2029 Prostate specific antigen measurement Prostate Cancer Screening Discussion [facility] Start: 12-11-2027 Diabetes Screening Diabetes Screenin g [facility] Start: 12-10-2025 Administration of varicella zoster vaccine Zoster (Shingles) Vaccine (1 of 2) [facility] Comment on above: Postponed from 09/04 (Patient Refused) Start: 12-10-2025 Adult BMI Screening Adult BMI Screen ing [facility] Start: 12-10-2025 COVID-19 Vaccine ( season) COVID-19 Vaccine () [facility] Comment on above: Postponed from 04/22 (Patient Refused) Start: 12-10-2025 Depression Screening Depression Scre ening [facility] Start: 12-10-2025 Tobacco Screening Tobacco Screening [facility] Start: 09-11-2025 Adult BMI Screening Adult BMI Screen ing [facility] Start: 09-11-2025 Tobacco Screening Tobacco Screening [facility] Start: 04-22-2025 Influenza vaccination P [facility] Start: 04-02-2025 End: 04-02-2025 Admission to same day surgery center 04/02/2025 11:30 AM EDT [facility] Colorectal Surgery [address] [id number] Lydia Drake PA-C [address] [place] [address] f/u Colorectal Surgery Comment on above: f/u Start: 03-28-2025 End: 03-28-2025 Patient encounter procedure 03/28/2025 1:30 PM EDT OT/PT/Speech Visit [facility] [address] [id number] Belkys Smith, PT, DPT tightness in my rectum, anus i cant push out poop [facility] Comment on above: tightness in my rect um, anus i cant push out poop Start: 03-19-2025 [facility] Start: 03-19-2025 X-ray of right foot [facility] Start: 03-19-2025 XR Foot - right 2 Views [facility] Start: 03-18-2025 [facility] Start: 03-15-2025 End: 03-15-2025 Admission to same day surgery center 03/15/2025 4:30 PM EDT [facility] Colorectal Surgery [address] [address] George Navarrete DO [address] [place] [address] [facility] Colorectal Surgery Comment on above: [facility] Start: 03-15-2025 Adult BMI Screening Adult BMI Screen ing [facility] Start: 03-15-2025 Depression Screening Depression Scre ening [facility] Start: 03-15-2025 Tobacco Screening Tobacco Screening [facility] Start: 03-13-2025 X-ray of right foot XR foot RT min 3 V* [facility] Start: 03-13-2025 XR Foot - right GE 3 Views [facility] Start: 02-21-2025 End: 02-21-2025 Patient encounter procedure 02/21/2025 10:30 AM EDT Office Visit General Surgery [address] [address] Jey Kapadia MD [address] [place] [address] Consult Botox Injection General Surgery Comment on above: Consult Botox Inject ion Start: 02-16-2025 Adult BMI Screening Adult BMI Screen ing [facility] Start: 02-16-2025 Screening for malign ant neoplasm of colon [facility] Start: 02-16-2025 Tobacco Screening Tobacco Screening [facility] Start: 02-05-2025 Tobacco Screening Tobacco Screening [facility] Start: 12-10-2024 End: 12-10-2025 CT Chest for screening WO contrast CT low dose lung screening (Annual) Imaging Routine Ex-smoker Expected: 12/10/2024, Expires: 12/10/2025 [facility] Comment on above: Expected: 12/10/2024 , Expires: 12/10/2025 Start: 12-10-2024 End: 12-10-2024 Patient encounter procedure 12/10/2024 1:00 PM EDT [facility] [address] [place] [address] Cisco Bonilla DO [address], [place] [address] [facility] Start: 12-08-2024 Adult BMI Screening Adult BMI Screen ing [facility] Start: 12-08-2024 Depression Screening Depression Scre ening [facility] Start: 12-08-2024 Tobacco Screening Tobacco Screening [facility] Start: 09-26-2024 End: 09-26-2024 Patient encounter procedure 09/26/2024 2:00 PM EST Office Visit [facility] [address] [place] [address] Aníbal Will, DO [address] [place] [address] [facility] Start: 06-04-2024 End: 06-04-2024 Patient encounter procedure 06/04/2024 2:15 PM EDT Office Visit [facility] Physicians Internal Medicine - Family Medicine [address] [place] [address] Cisco Bonilla DO [address] [place] [address] [facility] Internal Medicine - Family Medicine Start: 04-22-2024 Covid-19 Vaccine ( season) Covid-19 Vaccine ( season) [facility] Start: 04-22-2024 COVID-19 Vaccine ( season) COVID-19 Vaccine ( season) [facility] Start: 04-22-2024 Influenza vaccination Influenza Vacc ine [facility] Start: 03-15-2024 End: 03-15-2024 Patient encounter procedure 03/15/2024 3:45 PM EDT Office Visit [facility] Internal Medicine - Family Medicine [address] [place] [address] Cisco Bonilla DO [address] [place] [address] [facility] Internal Medicine - Family Medicine Start: 02-18-2024 Adult BMI Screening Adult BMI Screen ing [facility] Start: 02-18-2024 Depression Screening Depression Scre ening [facility] Start: 02-18-2024 Tobacco Screening Tobacco Screening [facility] Start: 02-17-2024 End: 02-17-2024 Admission to same day surgery center 02/17/2024 2:30 PM EDT - 02/17/2024 3:30 PM EDT Surgery [facility] [address] [place] [id number] Jennyfer Augustin, DO [address] [place] [address] COLONOSCOPY DIAGNOSTIC / SCREENING [98419 (CPT )] [facility] Comment on above: COLONOSCOPY DIAGNOST IC / SCREENING [91935 (CPT )] Start: 02-17-2024 End: 02-17-2024 Colonoscopy flx dx w/collj spec when pfrmd COLONOSCOPY DIAGNOSTIC / SCREENING change in bowel habits 02/17/2024 2:30 PM EDT [facility] Start: 02-17-2024 Subsequent hospital visit by physician 02/17/2024 2:30 PM EDT Hospital Encounter [facility] [address] [place] [id number] Jennyfer Augustin, DO [address] [place] [address] Change in bowel habits (Primary Dx) [facility] Comment on above: Change in bowel habi ts (Primary Dx) Start: 02-16-2024 End: 02-16-2024 ambulatory 02/16/2024 3:50 PM EDT Support Visit [facility] - Pre Admit [address] [place] [id number] [facility] Start: 01-29-2024 CT Abdomen and Pelvi s WO contrast [facility] Start: 01-29-2024 CT of abdomen and pe lvis without contrast CT abdomen pelvis wo con [facility] Start: 10-28-2023 DTaP,Tdap and Td Vaccines (2 - Td or Tdap) DTaP,Tdap and Td Vaccines (2 - Td or Tdap) [facility] Start: 10-28-2023 Urine microalbumin profile DTaP,Tdap,Td Vaccine (2 - Td or Tdap) [facility] Start: 04-22-2023 COVID-19 Vaccine ( season) COVID-19 Vaccine ( season) [facility] Start: 2018 Administration of varicella zoster vaccine Zoster (Shingles) Vaccine (1 of 2) [facility] Start: 2018 Pneumococcal Vaccine : 50+ (1 of 1 - PCV) Pneumococcal Vaccine: 50+ (1 of 1 - PCV) [facility] Start: 2018 Shingrix Vaccine (1 of 2) Shingrix Vaccine (1 of 2) [facility] Start: 2013 Diabetes Screening Diabetes Screenin g [facility] Start: 2013 Prostate specific antigen measurement Prostate Cancer Screening Discussion [facility] Start: 2013 Screening for malign ant neoplasm of colon [facility] Start: 2003 Lipid panel Lipid Screening [facility] Start: 1987 Hepatitis B Vaccine (1 of 3 - 19+ 3-dose series) Hepatitis B Vaccine (1 of 3 - 19+ 3-dose series) [facility] Start: 1987 Pneumococcal Vaccine : 50+ (1 of 2 - PCV) Pneumococcal Vaccine: 50+ (1 of 2 - PCV) [facility] Start: 1987 Shingrix Vaccine (1 of 2) Shingrix Vaccine (1 of 2) [facility] Start: 1987 Urine microalbumin profile DTaP,Tdap,Td Vaccine (1 - Tdap) [facility] Start: 1986 Adult BMI Follow Up Plan Adult BMI Follow Up Plan [facility] Start: 1986 Anxiety Screening Anxiety Screening [facility] Start: 1986 Depression Screening Depression Scre ening [facility] Start: 1986 Hepatitis C screening Hepatitis C Sc juan josé [facility] Start: 1986 HIV screening HIV Screening [facility] End: 09-11-2025 CBC panel - Blood by Automated count CBC Lab Routine Irritable bowel syndrome with both constipation and diarrhea Essential hypertension, benign 1 Occurrences starting 09/11/2024 until 09/11/2025 [facility] Comment on above: 1 Occurrences starti ng 09/11/2024 until 09/11/2025 End: 12-10-2025 CBC panel - Blood by Automated count CBC without diff Lab Routine Hypogonadism in male 1 Occurrences starting 12/10/2024 until 12/10/2025 [facility] Comment on above: 1 Occurrences starti ng 12/10/2024 until 12/10/2025 End: 02-04-2025 Colonoscopy Colonoscopy GI Routine Change in bowel habits Polyp of colon, unspecified part of colon, unspecified type 1 Occurrences starting 02/05/2024 until 02/04/2025 [employer] Work Phone: Comment on above: 1 Occurrences starti ng 02/05/2024 until 02/04/2025 Colonoscopy flx dx w/collj spec when pfrmd COLONOSCOPY DIAGNOSTIC / SCREENING Change in bowel habits [facility] End: 09-11-2025 Comprehensive metabolic 2000 panel - Serum or Plasma Comprehensive metabolic panel Lab Routine Essential hypertension, benign 1 Occurrences starting 09/11/2024 until 09/11/2025 [facility] Comment on above: 1 Occurrences starti ng 09/11/2024 until 09/11/2025 End: 12-10-2025 Comprehensive metabolic 2000 panel - Serum or Plasma Comprehensive metabolic panel Lab Routine Well adult exam 1 Occurrences starting 12/10/2024 until 12/10/2025 [employer] Work Phone: Comment on above: 1 Occurrences starti ng 12/10/2024 until 12/10/2025 End: 12-10-2025 Iron [Mass/volume] in Serum or Plasma Iron level Lab Routine Iron overload 1 Occurrences starting 12/10/2024 until 12/10/2025 [facility] Comment on above: 1 Occurrences starti ng 12/10/2024 until 12/10/2025 End: 12-10-2025 Lipid 1996 panel - Serum or Plasma Lipid profile Lab Routine Well adult exam 1 Occurrences starting 12/10/2024 until 12/10/2025 [facility] Comment on above: 1 Occurrences starti ng 12/10/2024 until 12/10/2025 Patient Education [facility] Work Phone: Patient referral [facility] Work Phone: End: 09-11-2025 Prostatic specific antigen screen Prostatic specific antigen screen Lab Routine Encounter for screening for malignant neoplasm of prostate 1 Occurrences starting 09/11/2024 until 09/11/2025 [facility] Comment on above: 1 Occurrences starti ng 09/11/2024 until 09/11/2025 End: 12-10-2025 Prostatic specific antigen screen Prostatic specific antigen screen Lab Routine Encounter for screening for malignant neoplasm of prostate 1 Occurrences starting 12/10/2024 until 12/10/2025 [facility] Comment on above: 1 Occurrences starti ng 12/10/2024 until 12/10/2025 End: 09-11-2025 TSH with Reflex TSH with Reflex Lab Routine Irritable bowel syndrome with both constipation and diarrhea Essential hypertension, benign Anxiety 1 Occurrences starting 09/11/2024 until 09/11/2025 [employer] Work Phone: Comment on above: 1 Occurrences starti ng 09/11/2024 until 09/11/2025 End: 12-10-2025 TSH with Reflex TSH with Reflex Lab Routine Anxiety Overweight 1 Occurrences starting 12/10/2024 until 12/10/2025 [facility] Comment on above: 1 Occurrences starti ng 12/10/2024 until 12/10/2025 XR Foot - right GE 3 Views [facility] Immunizations Immunization Date Immunization Notes Care Provider Fa cili 06-20-2021 influenza virus vaccine, unspecified formulation Michelle Francis GAME AND FISH PROTECTOR-RADIOLOGY THERAPIST Work Phone: [facility] 06-20-2021 influenza, injectabl e, quadrivalent, preservative free Michelle Francis GAME AND FISH PROTECTOR-RADIOLOGY THERAPIST Work Phone: [facility] 06-20-2021 SARS-CoV-2 (COVID-19 ) mRNA BNT-162b2 vax Didi Orzech [facility] 12-08-2020 SARS-CoV-2 (COVID-19 ) mRNA BNT-162b2 vax Didi Orzech [facility] 11-18-2020 SARS-CoV-2 (COVID-19 ) mRNA BNT-162b2 vax Didi Orzech [facility] 04-06-2020 influenza virus vaccine, unspecified formulation Didi Orzech [facility] 04-06-2020 influenza, injectabl e, quadrivalent, preservative free Michelle Tito [employer] AND FISH PROTECTOR-RADIOLOGY THERAPIST Work Phone: [email or web address] [facility] 06-07-2019 influenza virus vaccine, unspecified formulation Didi Orzech [facility] 06-07-2019 influenza, injectabl e, quadrivalent, preservative free Michelle Tito G[employer] AND FISH PROTECTOR-RADIOLOGY THERAPIST Work Phone: [facility] [employer] [facility] 10-27-2013 tetanus toxoid, redu brock diphtheria toxoid, and acellular pertussis vaccine, adsorbed Michelle Tito [employer] PROTECTOR-RADIOLOGY THERAPIST Work Phone: [facility] Payers Date Payer Category Payer Self-pay [id number] 2024 Medicaid [id number] 2024 Medicaid [id number] 1968 Unknown [id number] 1970 Unknown [id number] 2.16.840.1.962997.3.579.2.1285 1970 Unknown [id number] 2.16.840.1.928080.3.579.2.1285 1970 Unknown [id number] 2.16.840.1.093220.3.579.2.1285 1970 Unknown [id number] 2.16.840.1.390568.3.579.2.1285 1968 Unknown [id number] 2.16.840.1.088261.3.579.2.1285 1968 Unknown [id number] 2.16.840.1.582774.3.579.2.1285 1968 Unknown [id number] 2.16.840.1.101349.3.579.2.1285 1968 Unknown [id number] 2.16.840.1.943174.3.579.2.1285 1968 Unknown [id number] 2.16.840.1.390668.3.579.2.7 1968 Unknown [id number] 2.16.840.1.938443.3.579.2. 1968 Unknown [id number] 2.16.840.1.448337.3.579.2.727 1961 Private Health Insurance [id number] Medicaid [id number] Unknown [id number] 2.1 [id number] Unknown [place] BC/BS [id number] Unknown [id number] 2.16.840.1.518828.3.579.2.531 Unknown [id number] 2.16.840.1.748401.3.579.2.531 Unknown [id number] 2.16.840.1.389058.3.579.2.531 Social History Date Type Detail Facility Unknown if ever smoked [facility] Start: 09-11-2024 End: 02-28-2025 Sex Assigned At [facility] Start: 07-23-1985 End: 03-03-2024 Tobacco smoking status NHIS Smoker (finding) [facility] Start: 1970 Sex Assigned At Male [facility] Start: 02-02-2024 End: 01-24-2025 Tobacco smoking status Ex-smoker (finding) [facility] Start: 11-11-2015 Tobacco smoking status Never [facility] Start: 07-23-1985 End: 12-20-2018 History of tobacco use Cigarette Smoker [facility] Start: 12-09-2023 End: 02-28-2025 Cigarettes smoked current (pack per day) - Reported 1 [facility] History of tobacco use Passive smoker [facility] Start: 12-09-2023 Tobacco use and exposure Smokeless tobacco non-user [facility] Start: 09-11-2024 End: 12-10-2024 Alcoholic beverage intake Current drinker of alcohol (finding) [facility] Has the Vuzix, OpenZine, or water [employer] threatened to shut off services in your home in past 12Mo Yes [facility] Are you now , , , , never or living with a partner? Never [facility] How often to you hav e a drink containing alcohol? Monthly or less [facility] How often do you hav e 6 or more drinks on 1 occasion? Less than monthly [facility] How hard is it for y ou to pay for the very basics like food, housing, medical care, and heating Very hard [facility] Do you feel stress - tense, restless, nervous, or anxious, or unable to sleep at night because your mind is troubled all the time - these days [OSQ] Very much [facility] Start: 08-01-2022 Education 14 [facility] Start: 08-04-2022 Tobacco Comment vape, today [facility] Start: 10-12-2019 Alcohol Comment Occasional [facility] Start: 1970 [email or web address] Start: 03-27-2015 Sex Male (finding) [facility] How many standard drinks containing alcohol do you have on a typical day? 10 or more [facility] Sexual Orientation [facility] Tobacco smoking stat us [facility] Tobacco smoking consumption unknown [facility] Start: 03-03-2024 End: 03-19-2025 Tobacco smoking status NCIS Smokes tobacco daily (finding) [facility] Start: 03-07-2025 Gender identity Identifies as male gender (finding) [facility] Start: 03-07-2025 Sexual orientation Heterosexual (finding) [facility] Medical Equipment Procedure Code Equipment Code Equipment Origin al Text Equipment Identifier Dates ORIF, fracture, wrist Orthopaedic bone screw (non-sliding) ()[id number] [facility] Start: 03-19-2025 Goals Date Patient Goal Desired Activity /State Personal health goal Comment on above: Formatting of this n ote might be different from the original. Evaluation of progress towards goal: with support from friends and family, patient needs to fllow up with [facility] Functional Status Date Assessment Result Facility 01-09-2025 Functional Status N/A [facility] 02-02-2024 Functional Status N/A [facility] Clinical Notes 08-11-2021 to 04-03-2025 Lydia Drake PA-C - 04/03/2025 8:29 AM Lydia Watkins PA-C - 04/02/2025 11:30 AM EDTTelephone Encounter - Lydia Drake PA-C - 03/07/2025 1:37 PM EDTPatient Instructions Note Date & Type Note Facility 04-03-2025 Note HNO ID: [id number] Author: LYDIA DRAKE PA-C Service: ? Author Type: Physician Design Printing Machine Setter Type: Progress Notes Filed: 04/03/2025 08:41 Note [...] Anticipated surgical procedure: none Lydia Drake PA-C [facility] 04-03-2025 History of Presen t illness Narrative [...] Lydia Drake PA-C documented in this encounter [facility] 04-02-2025 History of Presen t illness Narrative COLORECTAL SURGERY VIRTUAL VISIT FOLLOW UP 04/02/2025 I have communicated my name and active licensure. The patient's identity and physical location were verified at the time of this visit. Either the patient or their legal freight representative has been informed of the risks [...] February 28, 2025. He was referred to [facility] for anorectal manometry by Dr. Brady for [...] laxatives and stool softeners; consider referral to [facility] if unable to see local GI anymore ( was told that [facility] would be managing him from [...] evaluate and manage orthostatic symptoms. Recording using GiveNext software for draft documentation of the visit was discussed with the patient/authorized freight representative; all questions welcomed and answered. Patient/authorized freight representative agreed to proceed JAME Segundo I spent a total of 33 minutes on the date of the service which included preparing to see the patient, [id number] patient care, completing clinical documentation, obtaining and/or reviewing separately obtained history, performing a medically appropriate examination, counseling and educating the patient/family/caregiver, communicating with other HCPs (not separately reported), and care coordination (not separately reported). documented in this encounter [facility] 04-02-2025 Note HNO ID: [id number] Author: LYDIA DRAKE PA-C Service: ? Author Type: Physician Design Printing Machine Setter Type: Progress Notes Filed: 04/02/2025 12:17 Note Text: COLORECTAL SURGERY VIRTUAL VISIT FOLLOW UP 04/02/2025 I have communicated my name and active licensure. The patient's identity and physical location were verified at the time of this visit. Either the patient or their legal freight representative has been informed of the risks [...] February 28, 2025. He was referred to [facility] for anorectal manometry by Dr. Brady for [...] trials of Trulanc (more content not included)... [facility] 03-07-2025 Telephone encounter Note Called patient back. [...] ED with worsening sx. Lydia Drake PA-C [facility] 03-07-2025 Miscellaneous Notes Called patient back. He [...] worsening sx. Lydia Drake PA-C Chai Samuel [phone] Patient contacted the office regarding the baclofen that was prescribed to him. He reported that his back is feeling tighter than before and believes that a taking all these different medications may be causing this side effect. Unsure on what he should do. documented in this encounter [facility] 03-07-2025 Telephone encounter Note Chai Samuel [phone] Patient contacted the office regarding the baclofen that was prescribed to him. He reported that his back is feeling tighter than before and believes that a taking all these different medications may be causing this side effect. Unsure on what he should do. [facility] 02-28-2025 Instructions Lydia Drake PA-C - 02/28/2025 1:31 PM EDT We discussed your chronic constipation and pelvic floor dysfunction: - I recommend starting baclofen suppositories, a muscle relaxer, to help with spasms and pain. Use one suppository as needed, up to twice daily. This prescription has been sent to [facility] in [place]. - Begin pelvic floor physical therapy to [...] for you. To make an appointment through [facility] call : [phone] If you are not close to a [facility] location, you can visit any one of these sites. Just put your zip code in and Pelvic Floor Physical Therapy places near you will populate. - [email or web address] - [email or web address] - [email or web address] - [email or web address] documented in this encounter [facility] 02-28-2025 History and physical note PELVIC FLOOR [...] a compounded preparation from a pharmacy in [place], and previously used hydrocortisone. He has not [...] Weak - Relaxation on pushing: Minimal - Rope Laying Machine Operator Present: Yes Rope Laying Machine Operator present: Yes, Arabella Assessment Anorectal Physiology [...] which included preparing to see the patient, [id number] patient care, completing clinical documentation, obtaining and/or reviewing separately obtained history, performing a medically appropriate examination, counseling and educating the patient/family/caregiver, ordering medications, tests, or procedures, communicating with other HCPs (not separately reported), independently interpreting results (not separately reported), and communicating results to the patient/family/caregiver. Recording using GiveNext software for draft documentation of the visit was discussed with the patient/authorized freight representative; all questions welcomed and answered. Patient/authorized freight representative agreed to proceed [facility] 02-28-2025 History and physical note PELVIC FLOOR [...] a compounded preparation from a pharmacy in [place], and previously used hydrocortisone. He has not [...] Weak - Relaxation on pushing: Minimal - Rope Laying Machine Operator Present: Yes Rope Laying Machine Operator present: Yes, Arabella Assessment Anorectal Physiology [...] which included preparing to see the patient, [id number] patient care, completing clinical documentation, obtaining and/or reviewing separately obtained history, performing a medically appropriate examination, counseling and educating the patient/family/caregiver, ordering medications, tests, or procedures, communicating with other HCPs (not separately reported), independently interpreting results (not separately reported), and communicating results to the patient/family/caregiver. Recording using GiveNext software for draft documentation of the visit was discussed with the patient/authorized freight representative; all questions welcomed and answered. Patient/authorized freight representative agreed to proceed documented in this encounter [facility] 02-18-2025 Evaluation note Diagnosis Onset Date Resolution Fracture of fifth metatarsal bone of right foot acute February 18, 2025 1:30pm Fracture of fifth metatarsal bone of right foot acute March 13, 2025 3:11pm [facility] Phone: 1(206) 979-413006-30-2025 Evaluation note* Diagnosis Onset Date Resolution Status Admit Date Fracture of fifth metatarsal bone of right foot acute February 18 1:30pm Fracture of fifth metatarsal bone of right foot acute March 13 3:11pm Fracture of fifth metatarsal bone of right foot acute April 08, 2025 9:12am Other specified postprocedur al states noneactive April 08 9:12am [facility] Work Phone: 1(566) 476-696506-23-2025 Telephone encounter Note* Telephone Encounter - Chelle Christianson - 02/11/2025 9:38 AM EDT Recevied referral from [facility] fot pt referral for botox injections [facility]06-23-2025 Miscellaneous Notes* Telephone Encounter - Chelle Christianson - 02/11/2025 9:38 AM EDT Recevied referral from [facility] fot pt referral for botox injections [facility] Miscellaneous Notes* Telephone Encounter - Linda Marc CMA - 12/31/2024 9:34 AM EDT I called and left message for pt to call back. Regarding his referral to Gastroenterology. George Alcaraz is retired. * Telephone Encounter - Barbara De La Torre CMA - 12/31/2024 9:34 AM EDT Can we send referral to Dr. Moreno in [place] documented in [facility] encounter[facility] Telephone encounter Note* Telephone Encounter - Linda Marc CMA - 12/31/2024 9:34 AM EDT I called and left message for pt to call back. Regarding his referral to Gastroenterology. George Alcaraz is retired. [facility]05-12-2025 Telephone encounter Note* Telephone Encounter - Barbara De La Torre CMA - 12/31/2024 9:34 AM EDT Can we send referral to Dr. Moreno in [place] [facility]04-28-2025 Miscellaneous Notes* Telephone Encounter - Barbara De La Torre CMA - 12/17/2024 3:24 PM EDT Patient called and stated he missed his apt in [place] with jaylyn/ent so they will not see him anymore. Can you refer him to someone else. * Telephone Encounter - Cisco Bonilla DO - 12/17/2024 3:24 PM EDT Okay. I sent another referral this time to a gas cutter in [place] -Dr. Alcaraz. If he can not make [...] usually routine to do. documented in this encounterGrand [facility]04-28-2025 Telephone encounter Note* Telephone Encounter - Barbara De La Torre CMA - 12/17/2024 3:24 PM EDT Patient called and stated he missed his apt in [place] with jaylyn/ent so they will not see him anymore. Can you refer him to someone else. [facility]04-28-2025 Telephone encounter Note* Telephone Encounter - Cisco Bonilla DO - 12/17/2024 3:24 PM EDT Okay. I sent another referral this time to a gas cutter in [place] -Dr. Alcaraz. If he can not make [...] treatment which is usually routine to do. [facility]04-21-2025 History of Present illness Narrative* Cisco Bonilla [...] reveal any inflammatory bowel disease. Thegastroenterologist in [place] did not want to see him. He [...] appear clear Nose: Nose normal. Mouth/Throat: Lips: [place]. Mouth: Mucous membranes are moist. Dentition: Abnormal [...] and irritable bowel syndrome. documented in this encounterGrand [facility]03-14-20[facility] History of Present illness Narrative* Cisco Bonilla DO - 11/02/2024 1:58 PM EDT FORM FOR BARREL PLANER FILLED OUT documented in this encounterGrand [facility]02-05-2025 Miscellaneous Notes* Telephone Encounter - Marisa Reinoso - 09/26/2024 2:19 PM EST New Patient NS 09/26/2024 * Telephone Encounter - Suki Islas RN - 09/26/2024 2:19 PM EST Discharge entered documented in this encounterGrand [facility]02-05-2025 Telephone encounter Note* Telephone Encounter - Marisa Reinsoo - 09/26/2024 2:19 PM EST New Patient NS 09/26/2024 [facility]02-05-2025 Telephone encounter Note* Telephone Encounter - Suki Islas RN - 09/26/2024 2:19 PM EST Discharge entered [facility]01-22-2025 Miscellaneous Notes* Telephone Encounter - Betty Wild [...] Send a referral to GI specialist at [facility] documented in this encounterGrand [facility]01-22-2025 Telephone encounter Note* Telephone Encounter - Betty Wild - 09/12/2024 2:21 PM EST [facility] office is refusing to see him since [...] why we referred him to a specialist [facility] [place] [employer] [id number] Telephone encounter Note* Telephone Encounter - Betty Wild - 09/12/2024 2:21 PM EST Can we get this as an urgent referral [facility] [place] [employer] [id number] Telephone encounter Note* Telephone Encounter - Cisco Bonilla DO - 09/12/2024 2:21 PM EST Send a referral to GI specialist at [facility] [place] [employer] [id number] Miscellaneous Notes* Telephone Encounter - Bettygeorge Wild - 09/12/2024 1:47 PM EST Patient called, metamucil is not covered by insurance but they will cover benifiber 240g [facility] [place] documented in this encounterGrand [facility]01-22-2025 Telephone encounter Note* Telephone Encounter - Betty Wild - 09/12/2024 1:47 PM EST Patient called, metamucil is not covered by insurance but they will cover benifiber 240g [facility] [place] [facility] [employer] [id number] History of Present illness Narrative* Cisco Bonilla [...] have an appointment coming up with a gas cutter in September. He had to cancel his last appointment because he was having diarrhea and was afraid to leave the house because he might have an accident. The ER did give him Bentyl which did help. He did not think that less than helped at all. He stopped the FiberCon because it was not helping. He would rather have Metamucil. He called the gas cutter office and they suggested a cleaned out. [...] Exam Vitals reviewed. Exam conducted with a twister doffer present (Leilani Han MS 3). Constitutional: General: [...] mouth in the morning. documented in this encounterGrand [facility]08-14-2024 Miscellaneous Notes* Telephone Encounter - Betty Wild - 04/04/2024 10:24 AM EDT ----- Message from Dr. Cisco Bonilla DO sent at 03/15/2024 7:03 PM EDT ----- Regarding: GI/BP recheck Please set up * Telephone Encounter - Betty Wild - 04/04/2024 10:24 AM EDT Mailbox full * Telephone Encounter - Betty Wild - 04/04/2024 10:24 AM EDT Scheduled documented in this encounterGrand [facility]08-14-2024 Telephone encounter Note* Telephone Encounter - Betty Wild - 04/04/2024 10:24 AM EDT ----- Message from Dr. Cisco Bonilla DO sent at 03/15/2024 7:03 PM EDT ----- Regarding: GI/BP recheck Please set up [facility]08-14-2024 Telephone encounter Note* Telephone Encounter - Betty Saldanagstock - 04/04/2024 10:24 AM EDT Mailbox full [facility]08-14-2024 Telephone encounter Note* Telephone Encounter - Betty Leseliseokaterine - 04/04/2024 10:24 AM EDT Scheduled [facility]07-25-2024 History of Present illness Narrative* Cisco Bonilla, [...] was getting liquidy stools-6 and 7 on Perham stool scale. He used fiber supplement in [...] mostly liquidy now. He has been to [facility] times. He was given [...] needed for pain (cramping). documented in this encounterGrand [facility]06-24-2024 Miscellaneous Notes* Telephone Encounter - Betty Wild [...] GoLYTELY sent to pharmacy documented in this encounterGrand Lake [facility]06-24-2024 Telephone encounter Note* Telephone Encounter - Betty Wild - 02/13/2024 12:02 PM EDT Patient said susame is 130 dollars, is there something else he can try or a coupon to use [facility]06-24-2024 Telephone encounter Note* Telephone Encounter - Linda Marc CMA - 02/13/2024 12:02 PM EDT Pt has medicaid My Bad Please SEND in the SUPREP. . [facility]06-24-2024 Telephone encounter Note* Telephone Encounter - Jennyfer Augustin DO - 02/13/2024 12:02 PM EDT Message noted. The only prep that is covered is the old fashioned Golytely prep [facility]06-24-2024 Telephone encounter Note* Telephone Encounter - Gloria Rodriguez CMA - 02/13/2024 12:02 PM EDT He is Medicaid so whatever his insurance covers [facility]06-24-2024 Telephone encounter Note* Telephone Encounter - Jennyfer Augustin DO - 02/13/2024 12:02 PM EDT Message noted. Rx for GoLYTELY sent to pharmacy [facility]06-11-2024 Miscellaneous Notes* Telephone Encounter - Barbara D eLa Torre CMA - 01/31/2024 3:09 PM EDT [...] EDT Left message via documented in this encounterGrand [facility]06-11-2024 Telephone encounter Note* Telephone Encounter - Barbara De La Torre CMA - 01/31/2024 3:09 PM EDT Patient called and was in the ER for Urinary re tension. His bowel movements ar still not good. Since I can not get him in for an ER follow up soon what do you suggest he do? He does see urology on [facility]06-11-2024 Telephone encounter Note* Telephone Encounter - Cisco Bonilla DO - 01/31/2024 3:09 PM EDT He can use MiraLax 17 g in 8 oz of water daily [facility]06-11-2024 Telephone encounter Note* Telephone Encounter - Barbara De La Torre CMA - 01/31/2024 3:09 PM EDT Left message via [facility]04-19-2024 History of Present illness Narrative* SYLVESTER Levin - 12/09/2023 9:00 AM EDT [address] [facility] [address] Patient: Chai Arnold Date of : 1970 [...] softeners pencilthin like a 4. On the Perham stool scale and he has tried Metamucil and MiraLax. He denies any hemorrhoids or blood in his stool. His last colonoscopy was 4 years ago that showed polyps and diverticulosis and he knows he is due for another colonoscopy next year. Patient has been struggling with weaning off his Xanax. 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 Past Medical History: Diagnosis Date Anxiety Depression Past Surgical History: Procedure Laterality Date APPENDECTOMY COLONOSCOPY N/A 10/17/2019 Performed by Jennyfer Augustin DO at [facility] DECOMPRESSION FASCIOTOMY LEG 12/24/2015 Current Outpatient [...] whether esophagitis present 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 ([facility]) Other orders - omeprazole (PriLOSEC) 20 mg [...] office. Resources such as Sub[facility] Clinic in [place] were given. It was also recommended that he apply at [facility] for primary care services and psychiatric [...] 12/09/23 1230 documented in this encounterCleveland Clinic Lutheran HospitalVarthana [facility] [id number] Evaluation note* Encounter Date Diagnosis Assessment Notes [...] Patient care instructions given in writting by [facility] document. [facility] [facility] 12-21-2021 Evaluation note* Encounter Date Diagnosis [...] Patient care instructions given in writting by [facility] Home document. [facility] Other Evaluation + Plan note Future Appointments Appointment Date:04/03/2024 01:00:00 PM Scheduled Provider:JOSEPH Allen APRN, Didi Martin Location:[facility] Appointment Type:URO Office Visit [facility] Cammie Evaluation + Plan note Future Appointments Appointment Date:04/11/2025 10:45:00 AM Scheduled Provider:Vivian Brady MD Location:[facility] Appointment Type:[facility] Follow Up [facility] evaluation noteNo assessment information available [facility] Work Phone: evaluation note* Diagnosis Irritable bowel syndrome with both constipation and diarrhea- Primary Essential hypertension, benign Anxiety Anxiety state, unspecified Encounter for screening for malignant neoplasm of prostate [facility] Diagnosis Irritable bowel syndrome with both constipation and diarrhea- Primary [facility]* Diagnosis Irritable bowel syndrome with constipation- Primary Irritable bowel syndrome Gastroesophageal reflux disease, unspecified whether esophagitis present 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 ([facility] Diagnosis Change in bowel habits- Primary Other symptoms involving digestive system Polyp of colon, unspecified part of colon, unspecified type [facility] Diagnosis Irritable bowel syndrome with both constipation and diarrhea- Primary Umbilical hernia without obstruction and without gangrene Incisional hernia, without obstruction or gangrene Anal fissure [facility]* Diagnosis Well adult exam- Primary Routine general medical examination at a health care facility Anxiety Anxiety state, unspecified Overweight Iron overload Disorders of iron metabolism Encounter for screening for malignant neoplasm of prostate Ex-smoker Personal history of tobacco use, presenting hazards to health Hypogonadism in male Severe episode of recurrent major depressive disorder, without psychotic features ([facility]) Irritable bowel syndrome with both constipation and diarrhea [facility] this [facility] [facility]* Diagnosis Anal fissure- Primary [facility] Diagnosis Irritable bowel syndrome with both constipation and diarrhea- Primary documented in this encounter [facility]* Diagnosis Chronic idiopathic constipation- Primary Unspecified constipation Hepatitis C virus infection without hepatic coma, unspecified chronicity documented in this encounter [facility]* Diagnosis 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 Outlet dysfunction constipation Stress-related physiological response affecting medical condition Psychic factors associated with diseases classified elsewhere [facility] Diagnosis Onset Date Resolution Status Admit Date Fracture of fifth metatarsal bone of right foot acute February 18, 2025 1:30pm [facility] Work Phone: Evaluation note* Diagnosis Pelvic floor dysfunction Pelvic muscle wasting Pelvic floor dysfunction- Primary Pelvic muscle wasting Rectal spasm Anal spasm Constipation, unspecified constipation type [facility] Diagnosis Pelvic floor dysfunction- Primary Pelvic muscle wasting Rectal spasm Anal spasm Constipation, unspecified constipation type [facility]* Diagnosis Anxiety Anxiety state, unspecified documented [facility] this encounter [facility]* Diagnosis Constipation, unspecified constipation type- Primary Rectal spasm Anal spasm Pelvic floor dysfunction Pelvic muscle wasting Anxiety Anxiety state, unspecified Distressed about housing issues Other specified housing or economic circumstances Orthostatic dizziness documented in this encounter [facility] note* Diagnosis Rectal spasm- Primary Anal spasm Constipation, unspecified constipation type Pelvic floor dysfunction Pelvic muscle wasting Anxiety Anxiety state, unspecified Chronic abdominal pain Abdominal pain, unspecified site Chronic rectal pain Anal or rectal pain documented in this encounter [facility] general Narrative - Reported* Type Description Date Medical History insomnia Medical History anxiety Medical History HTN Surgical History appendix removed Surgical History compartment syndrome left hand 2016 Hospitalization History see surgical hx [facility] Other Hospital course Narrative No data available for this section [facility] Hospital Discharge instructions Additional Instructions Wear leg bag with [place] catheter Follow-up with urology [facility] if [facility] are [facility] Work Phone: Hospital Discharge instructions No data available for this section [facility] Discharge instructions Additional Instructions Dr. Avina's [...] wearing your boot. You may take NSAIDs/Tylenol [id number] as indicated on the bottle. You should [...] be scheduled with Dr. Avina's office at [facility]. At your follow-up we will remove your splint and sutures. Please call to confirm your follow-up appointment. Dr. Ehsan Avina [facility] [address] [place] [address] [facility] Work Phone: Instructions* Attachments The following attachments cannot be sent through Care Everywhere. * IBS Diet (Arabic) documented in this encounterProKupiBonus Health SystemInstructionsNot on file documented in this encounterProAshtabula County [facility] CenterSurface Medical SystemInstructionsNot on file documented in this encounterProAshtabula County Medical CenterVarthana Health SystemInstructionsNot on file documented in this encounterProKupiBonus Health SystemInstructionsNot on file documented in this encounterProKupiBonus Health SystemInstructionsNot on file documented in this encounterProAshtabula County Medical CenterVarthana Health SystemInstructionsNot on file documented in this encounterProAshtabula County Medical CenterSurface Medical SystemInstructionsNot on file documented in this encounterProAshtabula County Medical CenterVarthana Health SystemInstructionsNot on file documented in this encounterProAshtabula County Medical CenterVarthana Health SystemInstructionsNot on file documented in this encounterProAshtabula County Medical CenterSurface Medical SystemInstructionsNot on file documented in this encounterProMedica Health SystemInstructionsNot on file documented in this encounterProMedica Health SystemInstructionsNot on file documented in this encounterProMedica Health SystemInstructionsNot on file documented in this encounterProAshtabula County Medical Centerca Health SystemProgress note No data available for this section [facility] [place] Reason for referral (narrative)* Medication Prior Authorization - Pending Review Specialty Diagnoses / Procedures Referred By Contac t Referred To Contact Cisco Bonilla DO [address] [facility] [place] [address] Phone: tel: fax: Referral ID Status Reason Start Date Expiration Date V isits Requested Visits Authorized [id number] Pending Review 1 1 [facility] System[facility] for referral (narrative)* Medication Prior Authorization - Pending Review Specialty Diagnoses / Procedures Referred By Contac t Referred To Contact Cisco Bonilla DO [address] [facility] [place] [address] Phone: tel: fax: Referral ID Status Reason Start Date Expiration Date V isits Requested Visits Authorized [id number] Pending Review 1 1 [facility] SystemReason for referral (narrative)* Medication Prior Authorization - Pending Review Specialty Diagnoses / Procedures Referred By Contac t Referred To Contact Cisco Bonilla DO [address] [facility] [place] [address] Phone: tel: fax: Referral ID Status Reason Start Date Expiration Date V isits Requested Visits Authorized [id number] Pending Review 1 1 [facility] SystemReason for referral (narrative)No reason for referral [facility] Work [facility]: Summary Purpose Family History No [...] To Contact Cisco Bonilla, [address] [facility] [place] [address] Referral ID Status Reason Start Date Expiration Date V isits Requested Visits Authorized [id number] Pending Review 03/14/2024 03/14/2025 1 1 Specialty Diagnoses / Procedures Referred By Contac t Referred To Contact Diagnoses Change in bowel habits Polyp of colon, unspecified part of colon, unspecified type Procedures Colonoscopy Cisco Bonilla, DO [address] [place] [address] Referral ID Status Reason Start Date Expiration Date V isits Requested Visits Authorized [id number] Pending Review 02/05/2024 02/04/2025 1 1 Additional Source Comments (unrecognized sect ion and content) No Status Records FoundNo Status Records FoundNo Status Records FoundNo Status Records FoundNo Status Records FoundNo Status Records FoundNo Status Records FoundNo Status Records Found INFORMATION SOURCE (unrecogn ized section and content) DATE CREATED AUTHOR 02/14/2018 [facility] DATE CREATED AUTHOR AUTHOR'S ORGANIZ ATION 03/29/2022 [facility] DATE CREATED AUTHOR AUTHOR'S ORGANIZ ATION 05/18/2024 [facility] DATE CREATED AUTHOR AUTHOR'S ORGANIZ ATION 12/10/2024 [facility] DATE CREATED AUTHOR AUTHOR'S ORGANIZ ATION 12/11/2024 [facility] DATE CREATED AUTHOR AUTHOR'S ORGANIZ ATION 03/31/[address] [facility] DATE CREATED AUTHOR AUTHOR'S ORGANIZ ATION 04/03/2025 [facility] DATE CREATED AUTHOR AUTHOR'S ORGANIZ ATION 04/25/2025 [facility] REASON FOR VISIT (unrecogniz ed section [...] INSTITUTE Diagnoses Pelvic floor dysfunction Procedures ADULT [place] ANORECTAL MANOMETRY ANORECTAL MANOMETRY Violette Maurer APRN.RADIOLOGY THERAPIST [address] [place] [address] Phone: tel: fax: [facility] [address] [place] [address] Referral ID Status Reason Start Date Expiration Date V isits Requested Visits Authorized [id number] Closed Auto-Generate d Referral 02/21/2025 08/21/2025 1 1 Reason Comments New Patient Pelvic floor dysfunc tion Specialty Diagnoses / Procedures Referred By Contac t Referred To Contact [facility] Diagnoses Pelvic floor dysfunction Procedures ADULT [place] ANORECTAL MANOMETRY ANORECTAL MANOMETRY Violette Maurer APRN.RADIOLOGY THERAPIST [address] [place] [address] Phone: tel: fax: [facility] [address] [place] [address] Referral ID Status Reason Start Date Expiration Date V isits Requested Visits Authorized [id number] Closed Auto-Generate d Referral 02/21/2025 08/21/2025 1 [...] March 03, 2024 End: March 03, [address]pre[address] Relationship Specialty Start Date End Date Cisco Bonilla DO [address], [facility] [place] [address] PCP - General Family Medicine 12/19/[address]preter Relationship Specialty Start Date End Date Cisco Bonilla DO [address], [facility] [place] [address] PCP - General Family Medicine 12/19/[address]preter Relationship Specialty Start Date End Date Cisco Bonilla DO [address], [facility] [place] [address] PCP - General Family Medicine 12/19/[address]preter Relationship Specialty Start Date End Date Cisco Bonilla DO [address], [place] [address] PCP - General Family Medicine 12/19/[address]preter Relationship Specialty Start Date End Date Cisco Bonilla DO [address] [place] [address] PCP - General Family Medicine 12/19/[address]preter Relationship Specialty Start Date End Date Cisco Bonilla DO [address], [place] [address] PCP - General Family Medicine 12/19/[address]preter Relationship Specialty Start Date End Date Cisco Bonilla DO [address], [place] [address] PCP - General Family Medicine 12/19/[address]preter Relationship Specialty Start Date End Date Cisco Bonilla DO [address], [place] [address] PCP - General Family Medicine 12/19/[address]preter Relationship Specialty Start Date End Date Cisco Bonilla DO [address] [place] [address] PCP - General Family Medicine 12/19/[address]preter Relationship Specialty Start Date End Date Cisco Bonilla DO [address] [place] [address] PCP - General Family Medicine 12/19/[address]preter Relationship Specialty Start Date End Date Carlos AlbertolindenCisco cao DO [address] [place] [address] PCP - General Family Medicine 12/19/[address]preter Relationship Specialty Start Date End Date Cisco Bonilla DO [address] [place] [address] PCP - General Family Medicine 12/19/[address]preter Relationship Specialty Start Date End Date Carlos AlbertolindenCisco cao DO [address] [place] [address] PCP - General Family Medicine 12/19/[address]preter Relationship Specialty Start Date End Date Carlos AlbertolindenCisco cao DO [address] [place] [address] PCP - General Family Medicine 12/19/[address]preter Relationship Specialty Start Date End Date Cisco Bonilla DO [address] [place] [address] PCP - General Family Medicine 12/19/[address]preter Relationship Specialty Start Date End Date Cisco Bonilla DO [address] [place] [address] PCP - General Family Medicine 12/19/[address]preter Relationship Specialty Start Date End Date Carlos AlbertolindenCisco cao DO [address] [place] [address] PCP - General Family Medicine 12/19/[address]preter Relationship Specialty Start Date End Date Cisco Bonilla DO [address], [place] [address] PCP - General Family Medicine 12/19/[address]preter Relationship Specialty Start Date End Date Tyson Tolliver MD PCP - General Family Medicine 11/11/15 Vivian Brady MD [address] [place] [address] Gastroenterology 01/16/[address]preter Relationship Specialty Start Date End Date Cisco Bonilla DO [address], [facility] [place] [address] PCP - General Family Medicine 12/19/[address]preter Relationship Specialty Start Date End Date Tyson Tolliver MD PCP - General Family Medicine 11/11/15 Vivian Brady MD [address] [address] Gastroenterology 01/16/25 Team Status: Inactive Member Role Status Dates Cisco Bonilla DO Primary Care Provider Active Start: February 18, 2025 End: February 18, 2025 Ehsan Avina DO Attending Provider Active S tart: February 18, 2025 End: February 18, [address]preter Relationship Specialty Start Date End Date Tyson Tolliver MD PCP - General Family Medicine 11/11/15 Vivian Brady MD [address] [address] Gastroenterology 01/16/[address]preter Relationship Specialty Start Date End Date Tyson Tolliver MD PCP - General Family Medicine 11/11/15 iVvian Brady MD [address] [address] Gastroenterology 01/16/[address]ter Relationship Specialty Start Date End Date Tyson Tolliver MD PCP - General Family Medicine 11/11/15 Vivian Brady MD [address] [address] Gastroenterology 01/16/[address]preter Relationship Specialty Start Date End Date Tyson Tolliver MD PCP - General Family Medicine 11/11/15 Vivian Brady MD [address] [address] Gastroenterology 01/16/25 Team Status: Active Member Role [...] S tart: March 12, 2025 Ehsan Avina DO Other Provider Active Start : March 12, 2025 Team Status: Inactive Member Role Status Dates Cisco Bonilla DO Primary Care Provider Active Start: March 19, 2025 End: March 19, 2025 Ehsan Avina DO Attending Provider Active S tart: March 19, 2025 End: March 19, [address]preter Relationship Specialty Start Date End Date Cisco Bonilla DO [address] [facility] [place] [address] PCP - General Family Medicine 12/19/[address]preter Relationship Specialty Start Date End Date Tyson Tolliver MD PCP - General Family Medicine 11/11/15 Vivian Brady MD [address] [address] Gastroenterology 01/16/[address]ter Relationship Specialty Start Date End Date Tyson Tolliver MD PCP - General Family Medicine 11/11/15 Vivian Brady MD [address] [facility] [address] [address] Gastroenterology 01/16/[address]preter Relationship Specialty Start Date End Date Tyson Tolliver MD PCP - General Family Medicine 11/11/15 Vivian Brady MD [address] [place] [id number] Gastroenterology 01/16/25 Team Status: Inactive Member Role [...] or prosecute any alcohol or drug abuse patient.[facility] the event this information is protected by the Federal Confidentiality of Alcohol and Drug Abuse Patient Records regulations: The Federal rules restrict any use of the information to criminally investigate or prosecute any alcohol or drug abuse patient.[facility] DaytonIn the event this information is protected by the Federal Confidentiality of Alcohol and Drug Abuse Patient Records regulations: The Federal rules restrict any use of the information to criminally investigate or prosecute any alcohol or drug abuse patient.[facility] DaytonIn the event this information is protected by the Federal Confidentiality of Alcohol and Drug Abuse Patient Records regulations: The Federal rules restrict any use of the information to criminally investigate or prosecute any alcohol or drug abuse patient.[facility] DaytonIn the event this information is protected by the Federal Confidentiality of Alcohol and Drug Abuse Patient Records regulations: The Federal rules restrict any use of the information to criminally investigate or prosecute any alcohol or drug abuse patient.[facility] DaytonIn the event this information is protected by the Federal Confidentiality of Alcohol and Drug Abuse Patient Records regulations: The Federal rules restrict any use of the information to criminally investigate or prosecute any alcohol or drug abuse patient.[facility] DaytonIn the event this information is protected by the Federal Confidentiality of Alcohol and Drug Abuse Patient Records regulations: The Federal rules restrict any use of the information to criminally investigate or prosecute any alcohol or drug abuse patient.[facility] DaytonIn the event this information is protected by the Federal Confidentiality of Alcohol and Drug Abuse Patient Records regulations: The Federal rules restrict any use of the information to criminally investigate or prosecute any alcohol or drug abuse patient.[facility] DaytonIn the event this information is protected by the Federal Confidentiality of Alcohol and Drug Abuse Patient Records regulations: The Federal rules restrict any use of the information to criminally investigate or prosecute any alcohol or drug abuse patient.[facility] FOR RECORDS PERTAINING TO PATIENTS WHO ARE [...] BE BASED ON THE PRIMARY CLINICAL RECORDS. [employer] [facility]. provides no warranty or guarantee of the accuracy or completeness of information in this document.
[2025-05-08 02:12] LABS: Cast Seen? NONE SEEN #/LPF (NONE SEEN); Crystals Seen? None Seen #/HPF (None Seen); Urine Culture Indicated NO
[2025-05-08] MEDS: TAMSULOSIN HCL 0.4 MG CAPSULE PO (02:43)
[2025-05-08 02:53] VITALS: BP 138/89; PULSE 80; O2SAT 98
== END 2025-05-08 02:55 | disposition home or self-care (01) ==
PROVIDERS: Emergency Provider Emergency Medicine; PCP Family Medicine
DX: K62.89 Other specified diseases of anus and rectum (principal); R33.9 Retention of urine, unspecified; K57.32 Diverticulitis of large intestine without perforation or abscess without bleeding; Z53.21 Procedure and treatment not carried out due to patient leaving prior to being seen by health care provider
CPT/HCPCS: 36415; 51702; 51798; 74018; 74022; 74177; 80048; 80053; 81001; 83605; 83690; 84484; 85025; 93005; 96365; 96368; 96374; 96375; 99281; 99284; 99285; J0360; J0744; J1836; J1885; J2270; Q9967

== ENCOUNTER 2025-05-08 05:26 | Emergency (ER) | payer OTHER, SELFPAY ==
[2025-05-08 05:33] VITALS: BP 151/96; PULSE 98; TEMP 36.8; O2SAT 99; BMI 25.8
--- OUTSIDE RECORDS SUMMARY | 2025-05-08 05:35 | XMS_ITS | CCD ---
Author Organization [facility] Care Team Providers Care Maintenance Supervisor Mechanical Name Role Phone OSINOWO, OSIYEMI Unavailable Unavailable [...] Carlos Albertolong Cisco MCLAUGHLIN Primary Care Provider [phone] Cisco Bonilla DO Primary Care Provider [phone] CISCO BONILLA Attending Unavailable CISCO BONILLA Referring [...] Provider Shiv Avina DOin A Attending Provider [phone] Ehsan Avina DO A Other Provider [phone] Kailyn, Ehsan A Admitting Unavailable Kailyn, Ehsan A Attending Unavailable Furlong, Cisco Primary Care Unavailable Kailyn, Ehsan A Admitting Unavailable Kailyn, Ehsan A Attending Unavailable Furlong, Cisco Primary Care Unavailable Kailyn, Ehsan A Admitting Unavailable Kailyn, Ehsan A Attending Unavailable Furlong, Cisco Primary Care Unavailable FELIPE ARIAS Referring Unavailable TYSON TOLLIEVR Primary Care Unavailable FELIPE ARIAS Referring Unavailable [...] Medication Allergies] Propensity to adverse reactions (disorder) [facility] Repository Medications Current Medications Medication Drug Class(es) [...] constipation, # 10 supp, Refills(s) 0, Pharmacy: [facility], 173, cm, 01/24/25 10:35:00 EDT, Height/Length [...] Daily, # 30 tab(s), Refills(s) 4, Pharmacy: [facility], 173, cm, 01/24/25 10:35:00 EDT, Height/Length Dosing, 86.3, kg, 01/24/25 10:35:00 EDT, Weight Dosing Start Date: 01/24/25 Status: Ordered Quantity: 30.0 Unit: tab(s) Repeat number: 5 Indications: Other specified disorders of muscle; Outlet dysfunction constipation; Constipation, unspecified; Psychological and behavioral factors associated with disorders or diseases classified elsewhere; Other psychoactive substance dependence, uncomplicated; Abdominal distension (gaseous); polyethylene glycol 3350 26586 mg powder for oral solution (20 sources) [...] bedtime) for constipation, 100 tab(s), Refill(s) 0, [facility], 173, cm, 01/24/25 10:35:00 EDT, Height/Length Dosing, 86.3, kg, 01/24/25 10:35:00 EDT, Weight Dosing Start Date: 04/19/25 Status: Ordered Quantity: 100.0 Unit: tab(s) Repeat number: 1 Start: 01-09-2025 Senna 8.6 mg o ral tablet 17.2 mg, 2 tab(s), Oral, Once a day (at bedtime) for constipation, 100 tab(s), Refill(s) 3, [facility], 173, cm, 01/09/25 12:52:00 EDT, [...] 2025 March 19, 2025 11:33am peg 3350-sod sulf,utps-uhi-spg 178.7-7.3-0.5 gram recon soln (1 source) Start: 02-13-2024 End: 02-14-2024 peg 3350-sod sulf,vbjm-die-uae 178.7-7.3-0.5 gram recon soln Indications: Change in [...] RT 2Von 03-20-2025 XR foot RT 2V [facility] [place] [address] XRay Report Signed Patient: Chai Arnold MR#: [id number] 2 : 1970 Acct:[id number] Age/Sex: 54 / M ADM Date: 03/19/25 Loc: [place] Room: Type: [facility] Attending Dr: Ehsan Avina DO Copies to: [...] Lisa M.D. 03/20/2025 8:49 AM Dictation Location: [place] [address] Transcribed By: [facility] 03/20/25 0849 Dictated By: Dante Lisa II, MD 03/20/25 0849 Signed By: 03/20/25 0849 Normal [facility] Amphetamine Screen Ql (U)Ord ered By: Nirmal Bruno on 03-19-2025 Amphetamines Ql (U) Negative Negative [facility] Barbiturates [Presence] in U rine by Screen methodOrdered By: Nirmal Bruno on 03-19-2025 Barbiturates Screen Ql (U) Negative Negative [facility] Benzodiazepines Screen Ql (U )Ordered By: Nirmal Bruno on 03-19-2025 Benzodiazepines Ql (U) Positive High Negative [facility] Benzoylecgonine [Presence] i n Urine by Screen methodOrdered By: Nirmal Bruno on 03-19-2025 Benzoylecgonine Screen Ql (U) Negative Negative [facility] Cannabinoids [Presence] in U rine by Screen methodOrdered By: Nirmal Bruno on 03-19-2025 Cannabinoids Screen Ql (U) Negative Negative [facility] Comment on above: These are unconfirme d results and should not be used for legal purposes. Drug Cut-Off Concentration: AMPH 1000 ng/mL MAXIMILIAN 200 ng/mL NORA 200 ng/mL COCM 300 ng/mL OP 300 ng/mL PCP 25 ng/mL THC 20 ng/mL Drug Screen,Urineon 03-19-20 25 Amphetamine Screen,Urine Negative Normal Negative [facility] Comment on above: Performed By: #### U RDS #### [address] Barbiturate Screen,Urine Negative Normal Negative [facility] Comment on above: Performed By: #### U RDS #### [place] [address] [place] Benzodiazepines Screen,Urine Positive Normal Negative [facility] Comment on above: Performed By: #### U RDS #### [address] Cannabinoid Screen,Urine Negative Normal Negative [facility] Comment on above: Result Comment: Thes e are unconfirmed results and should not be used for legal purposes. Drug Cut-Off Concentration: AMPH 1000 ng/mL MAXIMILIAN 200 ng/mL NORA 200 ng/mL COCM 300 ng/mL OP 300 ng/mL PCP 25 ng/mL THC 20 ng/mL PERFORMED BY: [place] [address] PATHOLOGIST CONSTRUCTION ASSISTANT BROWN OLIVIER M.D. Performed By: #### U RDS #### [place] [address] [place] Cocaine Screen,Urine Negative Normal Negative [facility] Comment on above: Performed By: #### U RDS #### [facility] [address] Opiate Screen,Urine Positive Normal Negative [facility] Comment on above: Performed By: #### U RDS #### [facility] [address] Phencyclidine Screen,Urine Negative Normal Negative [facility] Comment on above: Performed By: #### U RDS #### [address] Opiates [Presence] in Urine by Screen methodOrdered By: Nirmal Bruno on 03-19-2025 Opiates Screen Ql (U) Positive High Negative [facility] Phencyclidine Screen Ql (U)O rdered By: Nirmal Bruno on 03-19-2025 Phencyclidine Ql (U) Negative Negative [facility] Alanine aminotransferase [En zymatic activity/volume] in Serum or PlasmaOrdered By: Ehsan Avina on 03-18-2025 ALT [Catalytic activity/Vol] 15 U/L [facility] Comment on above: Performed By: #### C MP wRFX A1C, CBC #### [address] Albumin [Mass/volume] in Ser um or Plasma by Bromocresol green (BCG) dye binding methoOrdered By: Ehsan Avina on 03-18-2025 Albumin BCG dye [Mass/Vol] 4.2 g/dL 3.5-5.7 [facility] Alkaline phosphatase [Enzyma tic activity/volume] in Serum or PlasmaOrdered By: Ehsan Avina on 03-18-2025 ALP [Catalytic activity/Vol] 116 U/L High 34-104 [facility] Comment on above: Result Comment: PERF ORMED BY: [place] [address] PATHOLOGIST CONSTRUCTION ASSISTANT BROWN OLIVIER M.D. Performed By: #### C MP wRFX A1C, CBC #### [address] Aspartate aminotransferase [ Enzymatic activity/volume] in Serum or PlasmaOrdered By: Ehsan Avina on 03-18-2025 AST [Catalytic activity/Vol] 20 U/L 13-39 [facility] Comment on above: Performed By: #### C MP wRFX A1C, CBC #### [facility] [address] Basophils [#/volume] in Bloo d by Automated countOrdered By: Ehsan Avina on 03-18-2025 Basophils (Bld) [#/Vol] 0.1 10*3/uL 0.0-0.2 [facility] Comment on above: Result Comment: PERF ORMED BY: [place] [address] PATHOLOGIST CONSTRUCTION ASSISTANT BROWN OLIVIER M.D. Performed By: #### C MP wRFX A1C, CBC #### [address] Basophils/100 leukocytes in Blood by Automated countOrdered By: Ehsan Avina on 03-18-2025 Basophils/100 WBC (Bld) 0.9 % . [facility] Comment on above: Performed By: #### C MP wRFX A1C, CBC #### [address] Bilirubin.total [Mass/volume ] in Serum or PlasmaOrdered By: Ehsan Avina on 03-18-2025 Bilirubin [Mass/Vol] 1.0 mg/dL 0.3-1.0 [facility] Comment on above: Performed By: #### C MP wRFX A1C, CBC #### [facility] [address] CMP with reflex to A1Con Albumin [Mass/Vol] 4.2 g/dL Normal 3.5-5.7 [facility] Comment on above: Performed By: #### C MP wRFX A1C, CBC #### [place] [address] [place] GFR/1.73 sq M.predicted MDRD (S/P/Bld) [Vol rate/Area] mL/min/{1.73_m2} Normal [facility] Comment on above: Performed By: #### C MP wRFX A1C, CBC #### [facility] [address] Calcium [Mass/volume] in Ser um or PlasmaOrdered By: Ehsan Avina on 03-18-2025 Calcium [Mass/Vol] 9.2 mg/dL 8.6-10.3 [facility] Comment on above: Performed By: #### C MP wRFX A1C, CBC #### [facility] [address] Carbon dioxide, total [Moles /volume] in Serum or PlasmaOrdered By: Ehsan Avina on 03-18-2025 CO2 [Moles/Vol] 29.7 mmol/L 21.0-31.0 [facility] Comment on above: Performed By: #### C MP wRFX A1C, CBC #### [facility] [address] Chloride [Moles/volume] in S dereje or PlasmaOrdered By: Ehsan Avina on 03-18-2025 Chloride [Moles/Vol] 102 mmol/L 98-107 [facility] Comment on above: Performed By: #### C MP wRFX A1C, CBC #### [address] Complete Blood Count Auto Di ffon 03-18-2025 Mean Corpuscular HGB Conc 34.4 g/dL Normal 32.5-35.6 [facility] Comment on above: Performed By: #### C MP wRFX A1C, CBC #### [facility] [address] [place] [address] [place] NRBC% 0.1 /100{WBC} Normal 0-0.5 [facility] Comment on above: Performed By: #### C MP wRFX A1C, CBC #### [facility] [address] White Blood Count 6.4 [CFU]/mL Normal 4.1-10.5 [facility] Comment on above: Performed By: #### C MP wRFX A1C, CBC #### [facility] [address] Creatinine [Mass/volume] in Serum or PlasmaOrdered By: Ehsan Avina on 03-18-2025 Creatinine [Mass/Vol] 1.03 mg/dL 0.70-1.30 [facility] Comment on above: Performed By: #### C MP wRFX A1C, CBC #### [facility] [address] ECG 12 lead ECGon 03-18-2025 ECG 12 lead ECG [facility] [place] [address] [place] [address] Electrocardiograph Report Signed Patient: Chai Arnold MR#: [id number] 2 : 1970 Acct:[id number] Age/Sex: 54 / M ADM Date: 03/18/25 Loc: Room: Type: [facility] Attending Dr: Ehsan Avina DO Ordering [...] previous ECGs available Confirmed by Eduardo Torrez ([id number]) on 03/18/2025 1:40:16 PM Referred By: Electronically Signed By: Eduardo Torrez Transcribed By: MUS Signed By Eduardo Torrez MD 03/18/25 1340 Normal [facility] Eosinophils [#/volume] in Bl ood by Automated countOrdered By: Ehsan Avina on 03-18-2025 Eosinophils (Bld) [#/Vol] 0.9 10*3/uL High 0.0-0.45 [facility] Comment on above: Performed By: #### C MP wRFX A1C, CBC #### [facility] [address] [place] [address] [place] Eosinophils/100 leukocytes i n Blood by Automated countOrdered By: Ehsan Avina on 03-18-2025 Eosinophils/100 WBC (Bld) 14.4 % . [facility] Comment on above: Performed By: #### C MP wRFX A1C, CBC #### [facility] [address] [place] [address] Erythrocyte distribution wid th [Ratio] by Automated countOrdered By: Ehsan Avina on 03-18-2025 Erythrocyte distribution width (RBC) [Ratio] 12.9 % 12.0-14.8 [facility] Comment on above: Performed By: #### C MP wRFX A1C, CBC #### [address] Erythrocytes [#/volume] in B lood by Automated countOrdered By: Ehsan Avina on 03-18-2025 RBC (Bld) [#/Vol] 4.85 10*6/uL 3.90-5.60 [facility] Comment on above: Performed By: #### C MP wRFX A1C, CBC #### [facility] [address] [place] [address] [place] Glucose [Mass/volume] in Ser um or PlasmaOrdered By: Ehsan Avina on 03-18-2025 Glucose [Mass/Vol] 88 mg/dL 70-100 [facility] Comment on above: Performed By: #### C MP wRFX A1C, CBC #### [facility] [address] [place] [address] [place] Hematocrit [Volume Fraction] of Blood by Automated countOrdered By: Ehsan Avina on 03-18-2025 Hematocrit (Bld) [Volume fraction] 46.4 % 38.8-50.0 [facility] Comment on above: Performed By: #### C MP wRFX A1C, CBC #### [facility] [address] [place] [address] [place] Hemoglobin [Mass/volume] in BloodOrdered By: Ehsan Avina on 03-18-2025 Hemoglobin (Bld) [Mass/Vol] 16.0 g/dL 13.0-17.0 [facility] Comment on above: Performed By: #### C MP wRFX A1C, CBC #### [facility] [address] Leukocytes [#/volume] correc ernst for nucleated erythrocytes in Blood by Automated counOrdered By: Ehsan Avina on 03-18-2025 WBC corrected for nucl RBC Auto (Bld) [#/Vol] 6.4 10*3/uL 4.1-10.5 [facility] Leukocytes [#/volume] in Blo od by Automated countOrdered By: Ehsan Avina on 03-18-2025 WBC (Bld) [#/Vol] 6.4 10*3/uL 4.1-10.5 [facility] Comment on above: Performed By: #### C MP wRFX A1C, CBC #### [facility] [address] [place] [address] [place] Lymphocytes [#/volume] in Bl ood by Automated countOrdered By: Ehsan Avina on 03-18-2025 Lymphocytes (Bld) [#/Vol] 1.2 10*3/uL 1.00-4.8 [facility] Comment on above: Performed By: #### C MP wRFX A1C, CBC #### [address] Lymphocytes/100 leukocytes i n Blood by Automated countOrdered By: Ehsan Avina on 03-18-2025 Lymphocytes/100 WBC (Bld) 18.9 % . [facility] Comment on above: Performed By: #### C MP wRFX A1C, CBC #### [facility] [address] [place] [address] [place] MCH [Entitic mass] by Automa ernst countOrdered By: Ehsan Avina on 03-18-2025 MCH (RBC) [Entitic mass] 32.9 pg 27.5-35.2 [facility] Comment on above: Performed By: #### C MP wRFX A1C, CBC #### [facility] [address] [place] [address] [place] MCHC Auto (RBC) [Mass/Vol]Or dered By: Ehsan Avina on 03-18-2025 MCHC (RBC) [Mass/Vol] 34.4 g/dL 32.5-35.6 [facility] MCV [Entitic volume] by Auto mated countOrdered By: Ehsan Avina on 03-18-2025 MCV (RBC) [Entitic vol] 95.7 fL 83.5-101 [facility] [place] [facility] Comment on above: Performed By: #### C MP wRFX A1C, CBC #### [facility] [address] [place] [address] [place] Monocytes [#/volume] in Bloo d by Automated countOrdered By: Ehsan Avina on 03-18-2025 Monocytes (Bld) [#/Vol] 0.6 10*3/uL 0.0-0.8 [facility] Comment on above: Performed By: #### C MP wRFX A1C, CBC #### [facility] [address] [place] [address] [place] Monocytes/100 leukocytes in Blood by Automated countOrdered By: Ehsan Avina on 03-18-2025 Monocytes/100 WBC (Bld) 9.7 % . [facility] [place] [facility] Comment on above: Performed By: #### C MP wRFX A1C, CBC #### [address] Neutrophils [#/volume] in Bl ood by Automated countOrdered By: Ehsan Avina on 03-18-2025 Neutrophils (Bld) [#/Vol] 3.6 10*3/uL 1.8-7.7 [facility] Comment on above: Performed By: #### C MP wRFX A1C, CBC #### [facility] [address] [place] [address] [place] Neutrophils/100 leukocytes i n Blood by Automated countOrdered By: Ehsan Avina on 03-18-2025 Neutrophils/100 WBC (Bld) 56.1 % . [facility] Comment on above: Performed By: #### C MP wRFX A1C, CBC #### [facility] [address] [place] [address] No Panel InformationOrdered By: Ehsan Avina on 03-18-2025 Estimated GFR (CKD-EPI) > 60.0 mL/Min [facility] Creatinine Clearance (Chem N/A [facility] Nucleated erythrocytes [Pres ence] in Blood by Automated countOrdered By: Ehsan Avina on 03-18-2025 Nucleated RBC Auto Ql (Bld) 0.1 /100{WBC} 0-0.5 [facility] Platelet mean volume [Entiti c volume] in Blood by Automated countOrdered By: Ehsan Avina on 03-18-2025 Platelet mean volume (Bld) [Entitic vol] 8.1 fL 6.6-10.1 [facility] Comment on above: Performed By: #### C MP wRFX A1C, CBC #### [facility] [address] [place] [address] [place] Platelets [#/volume] in Bloo d by Automated countOrdered By: Ehsan Avina on 03-18-2025 Platelets (Bld) [#/Vol] 213 10*3/uL 150-450 [facility] Comment on above: Performed By: #### C MP wRFX A1C, CBC #### [facility] [address] [place] [address] [place] Potassium [Moles/volume] in Serum or PlasmaOrdered By: Ehsan Avina on 03-18-2025 Potassium [Moles/Vol] 4.1 mmol/L 3.5-5.1 [facility] Comment on above: Performed By: #### C MP wRFX A1C, CBC #### [facility] [address] [place] [address] [place] Protein [Mass/volume] in Ser um or PlasmaOrdered By: Ehsan Avina on 03-18-2025 Protein [Mass/Vol] 6.9 g/dL 6.4-8.9 [facility] Comment on above: Performed By: #### C MP wRFX A1C, CBC #### [facility] [address] [place] [address] Serum globulin measurement b y calculation (mass/volume)Ordered By: Ehsan Avina on 03-18-2025 Globulin (S) [Mass/Vol] 2.7 g/dL [facility] Comment on above: Performed By: #### C MP wRFX A1C, CBC #### [facility] [address] [place] [address] Serum or plasma albumin/glob ulin mass ratioOrdered By: Ehsan Avina on 03-18-2025 Albumin/Globulin [Mass ratio] 1.6 {ratio} [facility] Comment on above: Performed By: #### C MP wRFX A1C, CBC #### [facility] [address] [place] [address] Serum or plasma anion gap de terminationOrdered By: Ehsan Avina on 03-18-2025 Anion gap [Moles/Vol] 9.4 mmol/L 6.0-15.0 [facility] Comment on above: Performed By: #### C MP wRFX A1C, CBC #### [facility] [address] [place] [address] Sodium [Moles/volume] in Ser um or PlasmaOrdered By: Ehsan Avina on 03-18-2025 Sodium [Moles/Vol] 137 mmol/L 136-145 [facility] Comment on above: Performed By: #### C MP wRFX A1C, CBC #### [facility] [address] [place] [address] Urea nitrogen [Mass/volume] in Serum or PlasmaOrdered By: Ehsan Avina on 03-18-2025 Urea nitrogen [Mass/Vol] 9 mg/dL 7-25 [facility] Comment on above: Performed By: #### C MP wRFX A1C, CBC #### [facility] [address] [place] [address] X-ray reportOrdered By: Rodney Dawson on 03-13-2025 Study report [facility] [address] [place] [address] XRay Report Signed Patient: Chai Arnold MR#: [id number] : 1970 Acct:[id number] Age/Sex: 54 / M ADM Date: 5 Loc: [facility] Room: Type: REG CLI [...] Dawson M.D. 03/13/2025 10:25 PM Dictation Location: [place] [address] Transcribed By: [facility] 03/13/252224 Dictated By: Garrett Dawson DO 03/13/252220 Signed By: 03/13/252224 [facility] XR foot RT min 3V*on 025 XR foot RT min 3V* [facility] [address] [place] [address] XRay Report Signed Patient: Chai Arnold MR#: [id number] 2 : 1970 Acct:[id number] Age/Sex: 54 / M ADM Date: 03/13/25 Loc: [facility] Room: Type: REG CLI [...] 10:25 PM Dictation Location: RADIO-PC-20 Transcribed By: [facility] 03/13/252224 Dictated By: Garrett Dawson DO 03/13/252220 Signed By: 03/13/252224 Normal [facility] Doni 03-07-2025 CNPN Telephone ([facility]) ---- CHAI ARNOLD ([id number]) 1970 M Date Time Provider Department 03/07/25 LYDIA DRAKE During your visit today, we recorded the following information about you: Sterling Gonzalez 03/07/2025 1:33 PM Signed Chai Arnold - [phone] Patient contacted the office regarding the baclofen [...] Encounter Status:Closed by STERLING GONZALEZ on 03/07/25 [facility] ANORECTAL MANOMET [facility] 02-28-2025 PATIENT NAME: Chai Arnold PATIENT IDENTITY VERIFICATION COMPLETED USING TWO (2) IDENTIFIERS: Name and Date of confirmed by patient verbally. Referred by: Violette Maurer APRN.CNP Reason for testing: constipation Ileoanal pouch: No SENSITIVE EXAMINATION CONSENT: The sensitive examination was discussed with the Patient or Patient's Authorized [employer] Penc[employer] Dipper. As applicable, any other physician, advance practice provider, medical student, or other health professional student that will be observing or involved in the sensitive examination for educational or training purposes was discussed with the Patient or Authorized P[employer] Penc[employer] Dipper. The Patient or Authorized P[employer] Penc[employer] Dipper has agreed to proceed with the sensitive examination. Podiatric Assistant offered:Patient accepts, visit chaperoned by Antonieta PAYNE,RN [...] Guerra MD Colon & Rectal Surgery [facility] ANORECTAL MANOMET RYOrdered By: Aparna Guerra on 02-28-2025 [facility] Work Phone: Radiology Study observation (narrative) Usha dubose [facility] Work Phone: CNNURSEon 02-28-2025 CNNURSE Nurse Visit (KENIA) ---- CHAI ARNOLD ([id number]) 1970 M Date Time Provider Department 02/28/25 12:30 PM SAHIL BERGERON During your visit today, we recorded the following information about you: Referring Provider: VIOLETTE MAURER [[id number]] Allergies As of Date: 02/28/2025 (No Known Allergies) Date Reviewed: 02/28/2025 Reviewed by: Macey Meek OCCA - Fully Assessed Reason for Visit: Manometry [780] Visit Diagnosis:Pelvic floor dysfunction [M62.89] Order(s):[place] [place] ANORECTAL MANOMETRY [[id number]] Order #: [id number] Prescriptions as of 02/28/2025 - ALPRAZolam (XANAX) [...] Encounter Status:Closed by SAHIL BERGERON on 02/28/25 [facility] CNOVon 02-28-2025 CNOV Office Visit (KENIA) ---- CHAI ARNOLD ([id number]) 1970 M Date Time Provider Department 02/28/25 [...] a compounded preparation from a pharmacy in [place], and previously used hydrocortisone. He has not [...] retroflexed positi (more content not included)... Normal [facility] HISTORY PHYSICALon HISTORY PHYSICAL HNO ID: [id number] Author: LYDIA DRAKE PA-C Service: ? 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 He has not [...] No pa (more content not included)... Normal [facility] 02-11-2025 CNPN Telephone ([facility]) ---- CHAI ARNOLD ([id number]) 1970 M Date Time Provider Department 02/11/25 ASHLEY HAYWARD [facility] During your visit today, we recorded [...] Encounter Status:Closed by CHELLE CHRISTIANSON on 02/11/25 [facility] Ambulatory Visit Summaryon 0 01-24-2025 Ambulatory [...] EDT With: Caitlyn CHAVIS, Vivian Lance Where: [facility] [address] [place] [address]- Medications What How Much When Why Instructions New plecanatide (Trulance 3 mg oral tablet) 1 Tablets By Mouth Every day Constipation Constipation by outlet dysfunction Pelvic floor dysfunction Bloating Stress-related physiological response affecting medical condition Drug dependence Refills: 4 Pickup at [facility] Unchanged amlodipine (amLODIPine 5 mg Tab) [...] physician if questions or concerns Pharmacy Information [facility]: [address] [place] [phone] Allergies No Known Medication Allergies Problems Ongoing [...] for choosing us for your care. Normal [facility] Gastroenterology Office/Clin ic Noteon 01-24-2025 Gastroenterology Office/Clinic [...] him. Will refer to GI psychology at [facility] Advised to use squatty potty and [...] days could not see a provider at [facility] Review of Systems PHQ Score Initial [...] Daily, # 30 tab(s), Refills(s) 4, Pharmacy: [facility], 173, cm, 01/24/25 10:35:00 EDT, Height/Length Dosing, 86.3, kg, 01/24/25 10:35:00 EDT, Weight Dosing 2. Constipation by outlet dysfunction (K59.02: Outlet dysfunction constipation) Ordered: plecanatide, 3 mg = 1 tab(s), Oral, Daily, # 30 tab(s), Refills(s) 4, Pharmacy: [facility], 173, cm, 01/24/25 10:35:00 EDT, Height/Length Dosing, 86.3, kg, 01/24/25 10:35:00 EDT, Weight Dosing 3. Pelvic floor dysfunction (M62.89: Other specified disorders of muscle) Ordered: plecanatide, 3 mg = 1 tab(s), Oral, Daily, # 30 tab(s), Refills(s) 4, Pharmacy: [facility], 173, cm, 01/24/25 10:35:00 EDT, Height/Length Dosing, 86.3, kg, 01/24/25 10:35:00 EDT, Weight Dosing 4. Bloating (R14.0: Abdominal distension (gaseous)) Ordered: plecanatide, 3 mg = 1 tab(s), Oral, Daily, # 30 tab(s), Refills(s) 4, Pharmacy: [facility], 173, cm, 01/24/25 10:35:00 EDT, Height/Length Dosing, 86.3, kg, 01/24/25 10:35:00 EDT, Weight Dosing 5. Stress-related physiological response affecting medical condition (F54: Psychological and behavioral factors associated with disorders or diseases classified elsewhere) Ordered: (more content not included)... Normal [facility] Comment on above: Result Comment: Elec tronically [...] Someone Will Contact You Regarding These Appointments [facility] External Ambulatory Referral, Gastroenterology, 01/09/25 13:16:00 EDT, [...] choosing us for your care. Normal [facility] Gastroenterology Office/Clin ic Noteon 01-09-2025 [...] him. Will refer to GI psychology at [facility] Advised to use squatty potty and [...] 11/18/2020 Recorded (more content not included)... Normal [facility] Comment on above: Result Comment: Elec tronically Signed By: Caitlyn CHAVIS, Vivian Lance\.br\Date and Time Signed: 01/09/25 13:17 EDT COMPLETE BLOOD COUNTon 12-10 Erythrocyte distribution width (RBC) [Ratio] 13.5 % Normal 11.5-15.0 [facility] Comment on above: Performed By: #### C BC, [facility], 2498-4, 10145-6, 2857-1, TSHR #### [facility] ([id number]) [address] [address] Hematocrit (Bld) [Volume fraction] 48.2 % Normal 39-49 [facility] Comment on above: Performed By: #### C BC, CMP, 2498-4, 30595-3, 2857-1, TSHR #### [facility] ([id number]) [address], [address] [place] [address] Hemoglobin (Bld) [Mass/Vol] 16.1 g/dL Normal 13.0-17.0 [facility] Comment on above: Performed By: #### C BC, CMP, 2498-4, 43744-0, 2857-1, TSHR #### [facility] ([id number]) [address], [facility] [address] [place] [address] MCH (RBC) [Entitic mass] 31.9 pg Normal 27-34 [facility] Comment on above: Performed By: #### C BC, CMP, 2498-4, 60827-7, 2857-1, TSHR #### [facility] ([id number]) [address], [address] [place] [address] MCHC (RBC) [Mass/Vol] 33.4 g/dL Normal 32-36 [facility] Comment on above: Performed By: #### C BC, CMP, 2498-4, 79673-8, 2857-1, TSHR #### [facility] ([id number]) [address], [facility] [address] [place] [address] MCV (RBC) [Entitic vol] 96 fL Normal 80-100 [facility] Comment on above: Performed By: #### C BC, CMP, 2498-4, 98365-0, 2857-1, TSHR #### [facility] ([id number]) [address], [address] [place] [address] Platelet mean volume (Bld) [Entitic vol] 9.6 fL Normal 7-12 [facility] Comment on above: Performed By: #### C BC, CMP, 2498-4, 32352-1, 2857-1, TSHR #### [facility] ([id number]) [address], [address] [place] [address] Platelets (Bld) [#/Vol] 184 10*3/uL Normal 150-450 [facility] Comment on above: Performed By: #### C BC, CMP, 2498-4, 58891-3, 2857-1, TSHR #### [facility] ([id number]) [address], [address] [place] [address] RBC COUNT 5.04 X10E12/L Normal 4.10-5.70 [facility] Comment on above: Performed By: #### C BC, CMP, 2498-4, 31873-0, 2857-1, TSHR #### [facility] ([id number]) [address], [address] [place] [address] WBC (Bld) [#/Vol] 5.2 10*3/uL Normal 4.0-11.0 [facility] Comment on above: Performed By: #### C BC, CMP, 2498-4, 67528-6, 2857-1, TSHR #### [facility] ([id number]) [address], [address] [place] [address] COMPREHENSIVE METABOLIC PANE Vern 12-10-2024 Albumin [Mass/Vol] 4.5 g/dL Normal 3.2-5.3 [facility] Comment on above: Performed By: #### C BC, CMP, 2498-4, 38755-9, 2857-1, TSHR #### [facility] ([id number]) [address], [address] [place] [address] ALP [Catalytic activity/Vol] 101 U/L Normal 39-130 [facility] Comment on above: Performed By: #### C BC, CMP, 2498-4, 99676-6, 2857-1, TSHR #### [facility] ([id number]) [address], [address] [place] [address] ALT [Catalytic activity/Vol] 38 U/L Normal 0-40 [facility] Comment on above: Performed By: #### C BC, CMP, 2498-4, 62145-3, 2857-1, TSHR #### [facility] ([id number]) [address], [address] [place] [address] Anion gap [Moles/Vol] 11 mmol/L Normal 5-15 [facility] Comment on above: Performed By: #### C BC, CMP, 2498-4, 76229-1, 2857-1, TSHR #### [facility] ([id number]) [address], [address] [place] [address] AST [Catalytic activity/Vol] 28 U/L Normal 0-41 [facility] Comment on above: Performed By: #### C BC, CMP, 2498-4, 63758-2, 2857-1, TSHR #### [facility] ([id number]) [address], [address] [place] [address] Bilirubin [Mass/Vol] 0.6 mg/dL Normal 0.3-1.2 [facility] Comment on above: Performed By: #### C BC, CMP, 2498-4, 70072-2, 2857-1, TSHR #### [facility] ([id number]) [address], [address] [place] [address] Calcium [Mass/Vol] 9.6 mg/dL Normal 8.5-10.5 [facility] Comment on above: Performed By: #### C BC, CMP, 2498-4, 33756-7, 2857-1, TSHR #### [facility] ([id number]) [address], [address] [place] [address] Chloride [Moles/Vol] 105 mmol/L Normal 98-109 [facility] Comment on above: Performed By: #### C BC, CMP, 2498-4, 67563-2, 2857-1, TSHR #### [facility] ([id number]) [address], [address] [place] [address] CO2 [Moles/Vol] 26 mmol/L Normal 22-32 [facility] Comment on above: Performed By: #### C BC, CMP, 2498-4, 92225-5, 2857-1, TSHR #### [facility] ([id number]) [address], [address] [place] [address] Creatinine [Mass/Vol] 0.94 mg/dL Normal 0.60-1.30 [facility] Comment on above: Result Comment: METH OD TRACEABLE TO IDMS STANDARD Performed By: #### C KARLEY, CMP, 2498-4, 25692-3, 2857-1, TSHR #### [facility] ([id number]) [address], [address] [place] [address] eGFR (CKD-EPI) NON-RACE DEPENDENT >90 Normal >59 [facility] Comment on above: Result Comment: Reported eGFR is based on the CKD-EPI 2020 equation that does not use a race coefficient. Performed By: #### C KARLEY, CMP, 2498-4, 74055-1, 2857-1, TSHR #### [facility] ([id number]) [address], [address] [place] [address] Glucose [Mass/Vol] 86 mg/dL Normal 65-99 [facility] Comment on above: Performed By: #### Remberto CRANDALL, CMP, 2498-4, 59463-5, 2857-1, TSHR #### [facility] ([id number]) [address], [address] [place] [address] Potassium [Moles/Vol] 4.2 mmol/L Normal 3.5-5.0 [facility] Comment on above: Performed By: #### Remberto CRANDALL, CMP, 2498-4, 13535-1, 2857-1, TSHR #### [facility] ([id number]) [address], [address] [place] [address] Protein [Mass/Vol] 7.4 g/dL Normal 6.0-8.0 [facility] Comment on above: Performed By: #### C BC, CMP, 2498-4, 33559-9, 2857-1, TSHR #### [facility] ([id number]) [address], [address] [place] [address] Sodium [Moles/Vol] 142 mmol/L Normal 134-146 [facility] Comment on above: Performed By: #### C BC, CMP, 2498-4, 42921-1, 2857-1, TSHR #### [facility] ([id number]) [address], [facility] [address] [place] [address] Urea nitrogen [Mass/Vol] 13 mg/dL Normal 5-23 [facility] Comment on above: Performed By: #### Remberto BC, CMP, 2498-4, 16846-1, 2857-1, TSHR #### [facility] ([id number]) [address], [facility] [address] [place] [address] IRONon 12-10-2024 Iron [Mass/Vol] 184 ug/dL Normal 50-212 [facility] Comment on above: Performed By: ###Oseas Sr BC, CMP, 2498-4, 64288-7, 2857-1, TSHR #### [facility] ([id number]) [address], [address] [address] Lipid 1996 panelon Cholesterol [Mass/Vol] 183 mg/dL Normal 150-200 [facility] Comment on above: Performed By: ###Oseas Sr BC, CMP, 2498-4, 46481-8, 2857-1, TSHR #### [facility] ([id number]) [address] [address] Cholesterol in HDL [Mass/Vol] 38 mg/dL Low >39 [facility] Comment on above: Result Comment: HDL <40 mg/dL - High Risk HDL > or = 40mg/dL- Desirable HDL >60 mg/dL - Negative Risk Performed By: #### Remberto BC, CMP, 2498-4, 28695-4, 2857-1, TSHR #### [facility] ([id number]) [address] [address] Cholesterol in LDL [Mass/Vol] 121 mg/dL Normal <130 [facility] Comment on above: Result Comment: LDL <100 mg/dL - Desirable LDL >160 mg/dL - High Risk Performed By: #### C BC, CMP, 2498-4, 12225-5, 2857-1, TSHR #### [facility] ([id number]) [address] [address] Cholesterol in VLDL [Mass/Vol] 24 mg/dL Normal 0-30 [facility] Comment on above: Performed By: #### Remberto BC, CMP, 2498-4, 02208-2, 2857-1, TSHR #### [facility] ([id number]) [address] [address] CHOLESTEROL:HDL 4.8 Normal 1.0-5.0 [facility] Comment on above: Performed By: #### Remberto BC, CMP, 2498-4, 07653-7, 2857-1, TSHR #### [facility] ([id number]) [address] [address] Triglyceride [Mass/Vol] 119 mg/dL Normal 27-150 [facility] Comment on above: Performed By: #### Remberto BC, CMP, 2498-4, 07421-9, 2857-1, TSHR #### [facility] ([id number]) [address] [address] Prostate specific Ag [Mass/V ol]on 12-10-2024 PSA SCREEN 0.57 ng/mL Normal 0.00-4.00 [facility] Comment on above: Result Comment: The method used for this test is Graciela [place] DXI chemiluminescent immunoassay. Values obtained by different assay methods cannot be used interchangeably. Performed By: #### C BC, CMP, 2498-4, 02592-2, 2857-1, TSHR #### [facility] ([id number]) [address] [address] TSH WITH REFLEXon 12-10-2024 TSH 1.34 uIU/mL Normal 0.49-4.67 [facility] Comment on above: Performed By: #### C BC, CMP, 2498-4, 63692-9, 2857-1, TSHR #### [facility] ([id number]) [address] [address] COMPLETE BLOOD COUNTon 09-11 Erythrocyte distribution width (RBC) [Ratio] 13.4 % Normal 11.5-15.0 [facility] Comment on above: Performed By: #### Remberto CRANDALL, CMP, 2857-1, TSHR #### [facility] ([id number]) [address] [address] Hematocrit (Bld) [Volume fraction] 47.4 % Normal 39-49 [facility] Comment on above: Performed By: #### Remberto BC, CMP, 2857-1, TSHR #### [facility] ([id number]) [address] [address] Hemoglobin (Bld) [Mass/Vol] 16.4 g/dL Normal 13.0-17.0 [facility] Comment on above: Performed By: #### Remberto BC, CMP, 2857-1, TSHR #### [facility] ([id number]) [address] [address] MCH (RBC) [Entitic mass] 32.4 pg Normal 27-34 [facility] Comment on above: Performed By: #### Remberto BC, CMP, 2857-1, TSHR #### [facility] ([id number]) [address] [place] [address] MCHC (RBC) [Mass/Vol] 34.6 g/dL Normal 32-36 [facility] Comment on above: Performed By: #### Remberto BC, CMP, 2857-1, TSHR #### [facility] ([id number]) [address] [address] [place] [address] MCV (RBC) [Entitic vol] 94 fL Normal 80-100 [facility] Comment on above: Performed By: #### eRmberto BC, CMP, 2857-1, TSHR #### [facility] ([id number]) [address] [address] [place] [address] Platelet mean volume (Bld) [Entitic vol] 9.4 fL Normal 7-12 [facility] Comment on above: Performed By: #### Remberto CRANDALL, CMP, 2857-1, TSHR #### [facility] ([id number]) [address] [address] [place] [address] Platelets (Bld) [#/Vol] 235 10*3/uL Normal 150-450 [facility] Comment on above: Performed By: #### Remberto BC, CMP, 2857-1, TSHR #### [facility] ([id number]) [address] [address] [place] [address] RBC COUNT 5.06 X10E12/L Normal 4.10-5.70 [facility] Comment on above: Performed By: #### Remberto BC, CMP, 2857-1, TSHR #### [facility] ([id number]) [address] [address] [place] [address] WBC (Bld) [#/Vol] 7.0 10*3/uL Normal 4.0-11.0 [facility] Comment on above: Performed By: #### Remberto BC, CMP, 2857-1, TSHR #### [facility] ([id number]) [address] [place] [address] COMPREHENSIVE METABOLIC PANE Vern 09-11-2024 Albumin [Mass/Vol] 4.5 g/dL Normal 3.2-5.3 [facility] Comment on above: Performed By: #### C BC, CMP, 2857-1, TSHR #### [facility] ([id number]) [address], [address] [place] [address] ALP [Catalytic activity/Vol] 133 U/L High 39-130 [facility] Comment on above: Performed By: #### C BC, CMP, 2857-1, TSHR #### [facility] ([id number]) [address], [address] [place] [address] ALT [Catalytic activity/Vol] 20 U/L Normal 0-40 [facility] Comment on above: Performed By: #### Remberto BC, CMP, 2857-1, TSHR #### [facility] ([id number]) [address], [address] [place] [address] Anion gap [Moles/Vol] 10 mmol/L Normal 5-15 [facility] Comment on above: Performed By: #### Remberto BC, CMP, 2857-1, TSHR #### [facility] ([id number]) [address], [address] [place] [address] AST [Catalytic activity/Vol] 26 U/L Normal 0-41 [facility] Comment on above: Performed By: #### C BC, CMP, 2857-1, TSHR #### [facility] ([id number]) [address], [address] [place] [address] Bilirubin [Mass/Vol] 0.8 mg/dL Normal 0.3-1.2 [facility] Comment on above: Performed By: #### C BC, CMP, 2857-1, TSHR #### [facility] ([id number]) [address], [address] [place] [address] Calcium [Mass/Vol] 9.6 mg/dL Normal 8.5-10.5 [facility] Comment on above: Performed By: #### Remberto CRANDALL CMP, 2857-1, TSHR #### [facility] ([id number]) [address], [address] [place] [address] Chloride [Moles/Vol] 103 mmol/L Normal 98-109 [facility] Comment on above: Performed By: #### Remberto CRANDALL CMP, 2857-1, TSHR #### [facility] ([id number]) [address], [facility] [address] [place] [address] CO2 [Moles/Vol] 27 mmol/L Normal 22-32 [facility] Comment on above: Performed By: #### Remberto CRANDALL CMP, 2857-1, TSHR #### [facility] ([id number]) [address], [address] [place] [address] Creatinine [Mass/Vol] 1.05 mg/dL Normal 0.60-1.30 [facility] Comment on above: Result Comment: METH OD TRACEABLE TO IDMS STANDARD Performed By: #### Remberto CRANDALL CMP, 2857-1, TSHR #### [facility] ([id number]) [address], [facility] [address] [place] [address] GFR/1.73 sq M.predicted among non-blacks MDRD (S/P/Bld) [Vol rate/Area] 83 mL/min/{1.73_m2} Normal >59 [facility] Comment on above: Result Comment: Reported eGFR is based on the CKD-EPI 2020 equation that does not use a race coefficient. Performed By: #### Remberto CRANDALL CMP, 2857-1, TSHR #### [facility] ([id number]) [address], [address] [place] [address] Glucose [Mass/Vol] 87 mg/dL Normal 65-99 [facility] Comment on above: Performed By: #### Remberto CRANDALL, CMP, 2857-1, TSHR #### [facility] ([id number]) [address] [address] [place] [address] Potassium [Moles/Vol] 3.9 mmol/L Normal 3.5-5.0 [facility] Comment on above: Performed By: #### Remberto CRANDALL CMP, 2857-1, TSHR #### [facility] ([id number]) [address] [address] [place] [address] Protein [Mass/Vol] 7.3 g/dL Normal 6.0-8.0 [facility] Comment on above: Performed By: #### Remberto CRANDALL CMP, 2857-1, TSHR #### [facility] ([id number]) [address] [address] [place] [address] Sodium [Moles/Vol] 140 mmol/L Normal 134-146 [facility] Comment on above: Performed By: #### Remberto CRANDALL CMP, 2857-1, TSHR #### [facility] ([id number]) [address] [address] [place] [address] Urea nitrogen [Mass/Vol] 6 mg/dL Normal 5-23 [facility] Comment on above: Performed By: #### Remberto CRANDALL CMP, 2857-1, TSHR #### [facility] ([id number]) [address] [address] [place] [address] Prostate specific Ag [Mass/V ol]on 09-11-2024 PSA SCREEN 0.71 ng/mL Normal 0.00-4.00 [facility] Comment on above: Result Comment: The method used for this test is Graciela [place] DXI chemiluminescent immunoassay. Values obtained by different assay methods cannot be used interchangeably. Performed By: #### Remberto CRANDALL, CMP, 2857-1, TSHR #### [facility] ([id number]) [address] [address] [place] [address] TSH WITH REFLEXon 09-11-2024 TSH 1.29 uIU/mL Normal 0.49-4.67 [facility] Comment on above: Performed By: #### C BC, CMP, 2857-1, TSHR #### [facility] ([id number]) [address], [address] [place] [address] CBC AND AUTO DIFFon 05-15-20 ABSOLUTE BASOPHIL 0.1 X10E9/L Normal 0.0-0.2 [facility] Comment on above: Performed By: #### C BCA, CMP, 3040-3, 41166-4 #### [facility] ([id number]) [address] [place] [address] ABSOLUTE NEUTROPHIL 5.7 X10E9/L Normal 1.5-6.6 [facility] Comment on above: Performed By: #### C BCA, CMP, 3040-3, 66694-3 #### [facility] ([id number]) [address] [place] [address] Basophils/100 WBC (Bld) 0.7 % Normal [facility] Comment on above: Performed By: #### C BCA, CMP, 3040-3, 06869-3 #### [facility] ([id number]) [address] [place] [address] Eosinophils (Bld) [#/Vol] 0.4 10*3/uL Normal 0.0-0.4 [facility] Comment on above: Performed By: #### C BCA, CMP, 3040-3, 54396-6 #### [facility] ([id number]) [address] [place] [address] 24129 Eosinophils/100 WBC (Bld) 4.9 % Normal [facility] Comment on above: Performed By: #### C BCA, CMP, 3040-3, 76444-6 #### [facility] ([id number]) [address] [place] [address] 57698 Erythrocyte distribution width (RBC) [Ratio] 12.3 % Normal 11.5-15.0 [facility] Comment on above: Performed By: #### C [place] ANTOINE, 3040-3, 97479-9 #### [facility] ([id number]) [address] [place] [address] 20951 Hematocrit (Bld) [Volume fraction] 41.8 % Normal 39-49 [facility] Comment on above: Performed By: #### C [place] ANTOINE, 3, 09382-1 #### [facility] ([id number]) [address] [place] [address] 96848 Hemoglobin (Bld) [Mass/Vol] 15.1 g/dL Normal 13.0-17.0 [facility] Comment on above: Performed By: #### Remberto ANTOINE CMP, 3, 34285-8 #### [facility] ([id number]) [address] [place] [address] 38461 Lymphocytes (Bld) [#/Vol] 1.4 10*3/uL Normal 1.0-3.5 [facility] Comment on above: Performed By: #### Remberto ANTOINE CMP, 30403, 76750-1 #### [facility] ([id number]) [address] [place] [address] 69393 Lymphocytes/100 WBC (Bld) 17.3 % Normal [facility] Comment on above: Performed By: #### Remberto ANTOINE CMP, 304-3, 73720-8 #### [facility] ([id number]) [address] [place] [address] 98237 MCH (RBC) [Entitic mass] 32.3 pg Normal 27-34 [facility] Comment on above: Performed By: #### C BCA, CMP, 0-3, 62529-6 #### [facility] ([id number]) [address] [place] [address] 06755 MCHC (RBC) [Mass/Vol] 36.0 g/dL Normal 32-36 [facility] Comment on above: Performed By: #### C ARASH, CMP, 0-3, 32670-9 #### [facility] ([id number]) [address] [place] [address] 60899 MCV (RBC) [Entitic vol] 90 fL Normal 80-100 [facility] Comment on above: Performed By: #### C ARASH, CMP, 0-3, 42909-0 #### [facility] ([id number]) [address] [place] [address] 97596 Monocytes (Bld) [#/Vol] 0.6 10*3/uL Normal 0-0.9 [facility] Comment on above: Performed By: #### C ARASH, CMP, 0-3, 46261-6 #### [facility] ([id number]) [address] [place] [address] 62868 Monocytes/100 WBC (Bld) 7.6 % Normal [facility] Comment on above: Performed By: #### Remberto ANTOINE, CMP, 3039-3, 80911-9 #### [facility] ([id number]) [address] [place] [address] 06819 Neutrophils/100 WBC (Bld) 69.5 % Normal [facility] Comment on above: Performed By: #### Remberto BCA, CMP, 0-3, 64966-9 #### [facility] ([id number]) [address] [place] [address] 06947 Platelet mean volume (Bld) [Entitic vol] 8.2 fL Normal 7-12 [facility] Comment on above: Performed By: #### C BCA, CMP, 0-3, 73229-5 #### [facility] ([id number]) [address] [place] [address] 01215 Platelets (Bld) [#/Vol] 254 10*3/uL Normal 150-450 [facility] Comment on above: Performed By: #### C BCA, CMP, 3040-3, 11297-7 #### [facility] ([id number]) [address] [place] [address] 66054 RBC COUNT 4.66 X10E12/L Normal 4.10-5.70 [facility] Comment on above: Performed By: #### C BCA, CMP, 3040-3, 66944-7 #### [facility] ([id number]) [address] [place] [address] 03139 WBC (Bld) [#/Vol] 8.1 10*3/uL Normal 4.0-11.0 [facility] Comment on above: Performed By: #### C BCA, CMP, 3040-3, 16462-2 #### [facility] ([id number]) [address] [place] [address] [facility] 05-15-2024 Albumin [Mass/Vol] 4.5 g/dL Normal 3.2-5.3 [facility] Comment on above: Performed By: #### C BCA, CMP, 3040-3, 41945-7 #### [facility] ([id number]) [address] [place] [address] 25168 ALP [Catalytic activity/Vol] 105 U/L Normal 39-130 [facility] Comment on above: Performed By: #### C BCA, CMP, 3040-3, 45126-8 #### [facility] ([id number]) [address] [place] [address] 04506 ALT [Catalytic activity/Vol] 33 U/L Normal 0-40 [facility] Comment on above: Performed By: #### C BCA, CMP, 3040-3, 18124-9 #### [facility] ([id number]) [address] [place] [address] 34992 Anion gap [Moles/Vol] 9 mmol/L Normal 5-15 [facility] Comment on above: Performed By: #### C BCA, CMP, 3040-3, 93602-3 #### [facility] ([id number]) [address] [place] [address] 32497 AST [Catalytic activity/Vol] 29 U/L Normal 0-41 [facility] Comment on above: Performed By: #### C BCA, CMP, 3040-3, 76014-0 #### [facility] ([id number]) [address] [place] [address] 08286 Bilirubin [Mass/Vol] 0.9 mg/dL Normal 0.3-1.2 [facility] Comment on above: Performed By: #### C BCA, CMP, 3040-3, 77531-0 #### [facility] ([id number]) [address] [place] [address] 30893 Calcium [Mass/Vol] 9.1 mg/dL Normal 8.5-10.5 [facility] Comment on above: Performed By: #### C BCA, CMP, 3040-3, 94049-3 #### [facility] ([id number]) [address] [place] [address] 33728 Chloride [Moles/Vol] 96 mmol/L Low 98-109 [facility] Comment on above: Performed By: #### C BCA, CMP, 3040-3, 76948-4 #### [facility] ([id number]) [address] [place] [address] 23336 CO2 [Moles/Vol] 24 mmol/L Normal 22-32 [facility] Comment on above: Performed By: #### C ALEXANDRIA ANTOINE, 3040-3, 26526-0 #### [facility] ([id number]) [address] [place] [address] 53502 Creatinine [Mass/Vol] 0.91 mg/dL Normal 0.70-1.20 [facility] Comment on above: Result Comment: METH OD TRACEABLE TO IDMS STANDARD Performed By: #### C ALEXANDRIA ANTOINE, 3040-3, 04471-4 #### [facility] ([id number]) [address] [place] [address] 86684 eGFR (CKD-EPI) NON-RACE DEPENDENT >90 Normal >59 [facility] Comment on above: Result Comment: Reported eGFR is based on the CKD-EPI 2020 equation that does not use a race coefficient. Performed By: #### C ALEXANDRIA ANTOINE, 3040-3, 00892-5 #### [facility] ([id number]) [address] [place] [address] 85280 Glucose [Mass/Vol] 97 mg/dL Normal 65-99 [facility] Comment on above: Performed By: #### C ALEXANDRIA ANTOINE, 3040-3, 78770-3 #### [facility] ([id number]) [address] [place] [address] 93389 Potassium [Moles/Vol] 3.2 mmol/L Low 3.5-5.0 [facility] Comment on above: Performed By: #### C ALEXANDRIA ANTOINE, 3040-3, 50407-3 #### [facility] ([id number]) [address] [place] [address] 63813 Protein [Mass/Vol] 7.2 g/dL Normal 6.0-8.0 [facility] Comment on above: Performed By: #### C ALEXANDRIA ANTOINE, 3040-3, 53806-4 #### [facility] ([id number]) [address] [place] [address] 10725 Sodium [Moles/Vol] 129 mmol/L Low 134-146 [facility] Comment on above: Performed By: #### C ARASH CMP, 3040-3, 20065-4 #### [facility] ([id number]) [address] [place] [address] 49221 Urea nitrogen [Mass/Vol] 15 mg/dL Normal 5-23 [facility] Comment on above: Performed By: #### C ALEXANDRIA ANTOINE, 3040-3, 35111-5 #### [facility] ([id number]) [address] [place] [address] 20556 LIPASEon 05-15-2024 Lipase [Catalytic activity/Vol] 37 U/L Normal 17-40 [facility] Comment on above: Performed By: #### C ALEXANDRIA ANTOINE, 3040-3, 66858-2 #### [facility] ([id number]) [address] [place] [address] 83394 Lactate (P cherie) [Moles/Vol]o n 05-15-2024 LACTATE W/REFLEX 1.0 mmol/L Normal 0.4-2.0 [facility] Comment on above: Result Comment: Result did not trigger repeat Lactate, re-order if needed. Performed By: #### 3 2133-1 #### [facility] ([id number]) [address] [place] [address] 54583 Troponin I.cardiac High sens itivity method [Mass/Vol]on 05-15-2024 1 HOUR TROP I, HIGH SENSITIVITY 3 ng/L Normal <21 [facility] Comment on above: Performed By: #### 8 9579-7 #### [facility] ([id number]) [address] [place] [address] 18072 TROPONIN I, HIGH SENSITIVITY 3 ng/L Normal <21 [facility] Comment on above: Performed By: #### C BCA, CMP, 3040-3, 15750-0 #### [facility] ([id number]) [address] [facility] [place] [address] Bacteria [Presence] in Urine by AutomatedOrdered By: Nish Davidson on 03-03-2024 Bacteria Auto Ql (U) None seen [HPF] None Seen [facility] Basophils Auto (Bld) [#/Vol] Ordered By: James De on 03-03-2024 Basophils (Bld) [#/Vol] 0.0 10*3/uL 0.0-0.2 [facility] Basophils/100 WBC Auto (Bld) Ordered By: James De on 03-03-2024 Basophils/100 WBC (Bld) 0.4 % . [facility] Bilirubin Test strip Ql (U)O rdered By: Nish Davidson on 03-03-2024 Bilirubin Ql (U) Negative Negative [facility] Calcium [Mass/volume] in Ser um or PlasmaOrdered By: James De on 03-03-2024 Calcium [Mass/Vol] 9.5 mg/dL 8.6-10.3 [facility] Carbon dioxide, total [Moles /volume] in Serum or PlasmaOrdered By: James De on 03-03-2024 CO2 [Moles/Vol] 25.3 mmol/L 21.0-31.0 [facility] Chloride [Moles/volume] in S dereje or PlasmaOrdered By: James De on 03-03-2024 Chloride [Moles/Vol] 102 mmol/L 98-107 [facility] Color Auto (U)Ordered By: Dimitry Davidson on 03-03-2024 Color (U) Yellow Yellow [facility] Creatinine [Mass/volume] in Serum or PlasmaOrdered By: James De on 03-03-2024 Creatinine [Mass/Vol] 1.18 mg/dL 0.70-1.30 [facility] Eosinophils Auto (Bld) [#/Vo l]Ordered By: James De on 03-03-2024 Eosinophils (Bld) [#/Vol] 0.2 10*3/uL 0.0-0.45 [facility] Eosinophils/100 WBC Auto (Bl d)Ordered By: James De on 03-03-2024 Eosinophils/100 WBC (Bld) 2.6 % . [facility] Epithelial cells.squamous [# /area] in Urine sediment by Automated countOrdered By: Nish Davidson on 03-03-2024 Epithelial cells.squamous Auto (Urine sed) [#/Area] 1-2 [HPF] 0-2 [facility] Erythrocyte distribution wid th Auto (RBC) [Ratio]Ordered By: James De on 03-03-2024 Erythrocyte distribution width (RBC) [Ratio] 12.6 % 12.0-14.8 [facility] Erythrocytes [#/area] in Uri ne sediment by Automated countOrdered By: Nish Davidson on 03-03-2024 RBC Auto (Urine sed) [#/Area] None seen [HPF] 0-4 [facility] Glucose [Mass/volume] in Ser um or PlasmaOrdered By: James De on 03-03-2024 Glucose [Mass/Vol] 83 mg/dL 70-100 [facility] Comment on above: ADA recommended refe rence rangeRandom Glucose Reference Range is dependent on time and content of last meal. Glucose of more than 200 mg/dL in a nonstressed, ambulatory subject supports the diagnosis of Diabetes Mellitus. Glucose [Mass/volume] in Uri ne by Test stripOrdered By: Nish Davidson on 03-03-2024 Glucose Test strip (U) [Mass/Vol] Normal mg/dL Normal [facility] Hematocrit Auto (Bld) [Volum e fraction]Ordered By: James De on 03-03-2024 Hematocrit (Bld) [Volume fraction] 52.6 % High 38.8-50.0 [facility] Hemoglobin Test strip Ql (U) Ordered By: Nish Davidson on 03-03-2024 Hemoglobin Ql (U) Negative Negative [facility] Hemoglobin [Mass/volume] in BloodOrdered By: James De on 03-03-2024 Hemoglobin (Bld) [Mass/Vol] 18.5 g/dL High 13.0-17.0 [facility] Hyaline casts [#/area] in Ur ine sediment by Automated countOrdered By: Nish Davidson on 03-03-2024 Hyaline casts Auto (Urine sed) [#/Area] 0-8 [LPF] 0-8 [facility] Ketones Test strip Ql (U)Ord ered By: Nish Davidson on 03-03-2024 Ketones Ql (U) 2+ High Negative [facility] Leukocyte esterase [Presence ] in Urine by Test stripOrdered By: Nish Davidson on 03-03-2024 Leukocyte esterase Test strip Ql (U) Negative Negative [facility] Leukocytes [#/area] in Urine sediment by Automated countOrdered By: Nish Davidson on 03-03-2024 WBC Auto (Urine sed) [#/Area] 1-2 [HPF] 0-4 [facility] Leukocytes [#/volume] correc ernst for nucleated erythrocytes in Blood by Automated counOrdered By: James De on 03-03-2024 WBC corrected for nucl RBC Auto (Bld) [#/Vol] 9.0 10*3/uL 4.1-10.5 [facility] Lymphocytes Auto (Bld) [#/Vo l]Ordered By: James De on 03-03-2024 Lymphocytes (Bld) [#/Vol] 1.2 10*3/uL 1.00-4.8 [facility] Lymphocytes/100 WBC Auto (Bl d)Ordered By: James De on 03-03-2024 Lymphocytes/100 WBC (Bld) 13.4 % . [facility] MCH Auto (RBC) [Entitic mass ]Ordered By: James De on 03-03-2024 MCH (RBC) [Entitic mass] 32.8 pg 27.5-35.2 [facility] MCHC Auto (RBC) [Mass/Vol]Or dered By: James De on 03-03-2024 MCHC (RBC) [Mass/Vol] 35.1 g/dL 32.5-35.6 [facility] MCV Auto (RBC) [Entitic vol] Ordered By: James De on 03-03-2024 MCV (RBC) [Entitic vol] 93.4 fL 83.5-101 [facility] Monocyte distribution width [Entitic volume] in Blood by AutomatedOrdered By: James De on 03-03-2024 Monocyte distribution width Auto (Bld) [Entitic vol] 17.08 % 0.00-20.00 [facility] Monocytes Auto (Bld) [#/Vol] Ordered By: James De on 03-03-2024 Monocytes (Bld) [#/Vol] 0.8 10*3/uL 0.0-0.8 [facility] Monocytes/100 WBC Auto (Bld) Ordered By: James De on 03-03-2024 Monocytes/100 WBC (Bld) 8.7 % . [facility] Mucus [Presence] in Urine by AutomatedOrdered By: Nish Davidson on 03-03-2024 Mucus Auto Ql (U) 1+ [LPF] Abnormal [facility] Neutrophils Auto (Bld) [#/Vo l]Ordered By: James De on 03-03-2024 Neutrophils (Bld) [#/Vol] 6.7 10*3/uL 1.8-7.7 [facility] Neutrophils/100 WBC Auto (Bl d)Ordered By: James De on 03-03-2024 Neutrophils/100 WBC (Bld) 74.9 % . [facility] Nitrite Test strip Ql (U)Ord ered By: Nish Davidson on 03-03-2024 Nitrite Ql (U) Negative Negative [facility] No Panel InformationOrdered By: James De on 03-03-2024 Estimated GFR (CKD-EPI) > 60.0 mL/Min [facility] Creatinine Clearance (Chem 68.43 [facility] Nucleated erythrocytes [Pres ence] in Blood by Automated countOrdered By: James De on 03-03-2024 Nucleated RBC Auto Ql (Bld) 0.4 /100{WBC} 0-0.5 [facility] Platelet adequacy [Presence] in Blood by Light microscopyOrdered By: James De on 03-03-2024 Platelets LM Ql (Bld) Normal Normal [facility] Platelet mean volume Auto (B ld) [Entitic vol]Ordered By: James De on 03-03-2024 Platelet mean volume (Bld) [Entitic vol] 8.4 fL 6.6-10.1 [facility] Platelet morphology finding [Identifier] in BloodOrdered By: James De on 03-03-2024 Platelet morphology finding Nom (Bld) Normal Normal [facility] Platelets Auto (Bld) [#/Vol] Ordered By: James De on 03-03-2024 Platelets (Bld) [#/Vol] 207 10*3/uL 150-450 [facility] Potassium [Moles/volume] in Serum or PlasmaOrdered By: James De on 03-03-2024 Potassium [Moles/Vol] 3.7 mmol/L 3.5-5.1 [facility] Protein Test strip (U) [Mass /Vol]Ordered By: Nish Davidson on 03-03-2024 Protein (U) [Mass/Vol] Trace mg/dL High Negative [facility] RBC Auto (Bld) [#/Vol]Ordere d By: James De on 03-03-2024 RBC (Bld) [#/Vol] 5.64 10*6/uL High 3.90-5.60 [facility] RBC morphologyOrdered By: Asad De on 03-03-2024 RBC morphology finding Nom (Bld) Normal Normal [facility] Serum or plasma anion gap de terminationOrdered By: James De on 03-03-2024 Anion gap [Moles/Vol] 12.4 mmol/L 6.0-15.0 [facility] Sodium [Moles/volume] in Ser um or PlasmaOrdered By: James De on 03-03-2024 Sodium [Moles/Vol] 136 mmol/L 136-145 [facility] Specific gravity Test strip (U) [Rel density]Ordered By: Nish Davidson on 03-03-2024 Specific gravity (U) [Rel density] 1.015 1.001-1.030 [facility] Transitional cells [#/area] in Urine by Computer assisted methodOrdered By: Nish Davidson on 03-03-2024 Transitional cells Computer assisted (U) [#/Area] 1-2 [HPF] High 0-1 [facility] Urea nitrogen [Mass/volume] in Serum or PlasmaOrdered By: James De on 03-03-2024 Urea nitrogen [Mass/Vol] 8 mg/dL 7 [facility] Urine appearanceOrdered By: Nish Davidson on 03-03-2024 Appearance (U) Clear Clear [facility] Urobilinogen Test strip (U) [Mass/Vol]Ordered By: Nish Davidson on 03-03-2024 Urobilinogen (U) [Mass/Vol] Normal mg/dL Normal [facility] WBC Auto (Bld) [#/Vol]Ordere d By: James De on 03-03-2024 WBC (Bld) [#/Vol] 9.0 10*3/uL 4.1-10.5 [facility] pH Test strip (U)Ordered By: Nish Davidson on 03-03-2024 pH (U) 6.0 [pH] 5.0-9.0 [facility] Surgical Pathologyon 024 Surgical Pathology Normal [facility] Comment on above: Result Comment: [facility] [address] [place] [address] Surgical Pathology Consultation Patient Name:CHAI ARNOLD:1970 (Age: 53)Gender:MTaken:02/17/2024eported:02/22/2024hysician(s):Jennyfer Augustin MD ([phone])Copy To: Rec. #:[id number]: #[id number] Final Pathologic Diagnosis 1. Colon polyp 55cm: Hyperplastic polyp. 2. Colon polyp 35cm: Tubular adenoma. Report Electronically Signed Out 02/22/2024Keren Bee MD Interpretation performed at [facility], [address] [facility] [address], License number: [id number]. Clinical History Change in bowel habits. Gross Description 1. Received in formalin labeled, CATALINA, 55 cm is a mccray-richardson 0.3 cm soft tissue.. The specimen is filtered and entirely submitted in a single cassette. (1, ns, [id number], m8) SM 2. Received in formalin labeled, SAUMYAFTZ, 35 cm is a pale richardson 0.3 cm the specimen is filtered and entirely submitted in a single cassette. (1, ns, [id number], m8) slm/02/20/2024GR Specimen(s) Received 1: Colon polyp 55cm 2: Colon polyp 35cm Fee Codes(s): 1; 12078 2; 70627 Alanine aminotransferase [En zymatic activity/volume] in Serum or PlasmaOrdered By: Jennyfer Winkler on 01-29-2024 ALT [Catalytic activity/Vol] 24 U/L 7-52 [facility] Albumin [Mass/volume] in Ser um or Plasma by Bromocresol green (BCG) dye binding methoOrdered By: Jennyfer Winkler on 01-29-2024 Albumin BCG dye [Mass/Vol] 4.9 g/dL 3.5-5.7 [facility] Alkaline phosphatase [Enzyma tic activity/volume] in Serum or PlasmaOrdered By: Jennyfer Winkler on 01-29-2024 ALP [Catalytic activity/Vol] 96 U/L 34-104 [facility] Amylase [Enzymatic activity/ volume] in Serum or PlasmaOrdered By: Jennyfer Winkler on 01-29-2024 Amylase [Catalytic activity/Vol] 47 U/L 29-103 [facility] Aspartate aminotransferase [ Enzymatic activity/volume] in Serum or PlasmaOrdered By: Jennyfer Winkler on 01-29-2024 AST [Catalytic activity/Vol] 21 U/L 13-39 [facility] Basophils Auto (Bld) [#/Vol] Ordered By: Jennyfer Winkler on 01-29-2024 Basophils (Bld) [#/Vol] N/A [facility] Basophils/100 WBC Auto (Bld) Ordered By: Jennyfer Winkler on 01-29-2024 Basophils/100 WBC (Bld) N/A [facility] Bilirubin Test strip Ql (U)O rdered By: Jennyfer Winkler on 01-29-2024 Bilirubin Ql (U) Negative Negative [facility] Bilirubin.direct [Mass/volum e] in Serum or PlasmaOrdered By: Jennyfer Winkler on 01-29-2024 Bilirubin.direct [Mass/Vol] 0.10 mg/dL 0.03-0.18 [facility] Bilirubin.total [Mass/volume ] in Serum or PlasmaOrdered By: Jennyfer Winkler on 01-29-2024 Bilirubin [Mass/Vol] 0.8 mg/dL 0.3-1.0 [facility] Calcium [Mass/volume] in Ser um or PlasmaOrdered By: Jennyfer Winkler on 01-29-2024 Calcium [Mass/Vol] 10.2 mg/dL 8.6-10.3 [facility] Carbon dioxide, total [Moles /volume] in Serum or PlasmaOrdered By: Jennyfer Winkler on 01-29-2024 CO2 [Moles/Vol] 26.4 mmol/L 21.0-31.0 [facility] Chloride [Moles/volume] in S dereje or PlasmaOrdered By: Jennyfer Winkler on 01-29-2024 Chloride [Moles/Vol] 98 mmol/L 98-107 [facility] Color Auto (U)Ordered By: Ella Winkler on 01-29-2024 Color (U) Colorless Yellow [facility] Creatinine [Mass/volume] in Serum or PlasmaOrdered By: Jennyfer Winkler on 01-29-2024 Creatinine [Mass/Vol] 1.07 mg/dL 0.70-1.30 [facility] Eosinophils Auto (Bld) [#/Vo l]Ordered By: Jennyfer Winkler on 01-29-2024 Eosinophils (Bld) [#/Vol] N/A [facility] Eosinophils/100 WBC Auto (Bl d)Ordered By: Jennyfer Winkler on 01-29-2024 Eosinophils/100 WBC (Bld) N/A [facility] Eosinophils/100 WBC Manual c nt (Bld)Ordered By: Jennyfer Winkler on 01-29-2024 Eosinophils/100 WBC (Bld) 5 % High 1-3 [facility] Erythrocyte distribution wid th Auto (RBC) [Ratio]Ordered By: Jennyfer Winkler on 01-29-2024 Erythrocyte distribution width (RBC) [Ratio] 12.1 % 12.0-14.8 [facility] Giant platelets/100 leukocyt es [Ratio] in Blood by Manual countOrdered By: Jennyfer Winkler on 01-29-2024 Giant platelets/100 WBC Manual cnt (Bld) [Ratio] 1 /100{WBC} [facility] Globulin Calc (S) [Mass/Vol] Ordered By: Jennyfer Winkler on 01-29-2024 Globulin (S) [Mass/Vol] 3.1 g/dL [facility] Glucose [Mass/volume] in Ser um or PlasmaOrdered By: Jennyfer Winkler on 01-29-2024 Glucose [Mass/Vol] 103 mg/dL High 70-100 [facility] Comment on above: ADA recommended refe rence rangeRandom Glucose Reference Range is dependent on time and content of last meal. Glucose of more than 200 mg/dL in a nonstressed, ambulatory subject supports the diagnosis of Diabetes Mellitus. Glucose [Mass/volume] in Uri ne by Test stripOrdered By: Jennyfer Winkler on 01-29-2024 Glucose Test strip (U) [Mass/Vol] Normal mg/dL Normal [facility] Hematocrit Auto (Bld) [Volum e fraction]Ordered By: Jennyfer Winkler on 01-29-2024 Hematocrit (Bld) [Volume fraction] 54.1 % High 38.8-50.0 [facility] Hemoglobin Test strip Ql (U) Ordered By: Jennyfer Winkler on 01-29-2024 Hemoglobin Ql (U) Negative Negative [facility] Hemoglobin [Mass/volume] in BloodOrdered By: Jennyfer Winkler on 01-29-2024 Hemoglobin (Bld) [Mass/Vol] 18.9 g/dL High 13.0-17.0 [facility] Ketones Test strip Ql (U)Ord ered By: Jennyfer Winkler on 01-29-2024 Ketones Ql (U) Negative Negative [facility] Leukocyte esterase [Presence ] in Urine by Test stripOrdered By: Jennyfer Winkler on 01-29-2024 Leukocyte esterase Test strip Ql (U) Negative Negative [facility] Leukocytes [#/volume] correc ernst for nucleated erythrocytes in Blood by Automated counOrdered By: Jennyfer Winkler on 01-29-2024 WBC corrected for nucl RBC Auto (Bld) [#/Vol] 6.8 10*3/uL 4.1-10.5 [facility] Lipase [Enzymatic activity/v olume] in Serum or PlasmaOrdered By: Jennyfer Winkler on 01-29-2024 Lipase [Catalytic activity/Vol] 29.0 U/L 11.0-82.0 [facility] Lymphocytes Auto (Bld) [#/Vo l]Ordered By: Jennyfer Winkler on 01-29-2024 Lymphocytes (Bld) [#/Vol] N/A [facility] Lymphocytes/100 WBC Auto (Bl d)Ordered By: Jennyfer Winkler on 01-29-2024 Lymphocytes/100 WBC (Bld) N/A [facility] Lymphocytes/100 WBC Manual c nt (Bld)Ordered By: Jennyfer Winkler on 01-29-2024 Lymphocytes/100 WBC (Bld) 28 % 18-42 [facility] MCH Auto (RBC) [Entitic mass ]Ordered By: Jennyfer Winkler on 01-29-2024 MCH (RBC) [Entitic mass] 32.4 pg 27.5-35.2 [facility] MCHC Auto (RBC) [Mass/Vol]Or dered By: Jennyfer Winkler on 01-29-2024 MCHC (RBC) [Mass/Vol] 35.0 g/dL 32.5-35.6 [facility] MCV Auto (RBC) [Entitic vol] Ordered By: Jennyfer Winkler on 01-29-2024 MCV (RBC) [Entitic vol] 92.7 fL 83.5-101 [facility] Monocyte distribution width [Entitic volume] in Blood by AutomatedOrdered By: Jennyfer Winkler on 01-29-2024 Monocyte distribution width Auto (Bld) [Entitic vol] 18.41 % 0.00-20.00 [facility] Monocytes Auto (Bld) [#/Vol] Ordered By: Jennyfer Winkler on 01-29-2024 Monocytes (Bld) [#/Vol] N/A [facility] Monocytes/100 WBC Auto (Bld) Ordered By: Jennyfer Winkler on 01-29-2024 Monocytes/100 WBC (Bld) N/A [facility] Monocytes/100 WBC Manual cnt (Bld)Ordered By: Jennyfer Winkler on 01-29-2024 Monocytes/100 WBC (Bld) 4 % 2-11 [facility] Neutrophils Auto (Bld) [#/Vo l]Ordered By: Jennyfer Winkler on 01-29-2024 Neutrophils (Bld) [#/Vol] N/A [facility] Neutrophils/100 WBC Auto (Bl d)Ordered By: Jennyfer Winkler on 01-29-2024 Neutrophils/100 WBC (Bld) N/A [facility] Nitrite Test strip Ql (U)Ord ered By: Jennyfer Winkler on 01-29-2024 Nitrite Ql (U) Negative Negative [facility] No Panel InformationOrdered By: Jennyfer Winkler on 01-29-2024 Estimated GFR (CKD-EPI) > 60.0 mL/Min [facility] Creatinine Clearance (Chem 83.32 [facility] Nucleated erythrocytes [Pres ence] in Blood by Automated countOrdered By: Jennyfer Winkler on 01-29-2024 Nucleated RBC Auto Ql (Bld) N/A [facility] Platelet adequacy [Presence] in Blood by Light microscopyOrdered By: Jennyfer Winkler on 01-29-2024 Platelets LM Ql (Bld) Normal Normal [facility] Platelet mean volume Auto (B ld) [Entitic vol]Ordered By: Jennyfer Winkler on 01-29-2024 Platelet mean volume (Bld) [Entitic vol] 8.1 fL 6.6-10.1 [facility] Platelet morphology finding [Identifier] in BloodOrdered By: Jennyfer Winkler on 01-29-2024 Platelet morphology finding Nom (Bld) Normal Normal [facility] Platelets Auto (Bld) [#/Vol] Ordered By: Jennyfer Winkler on 01-29-2024 Platelets (Bld) [#/Vol] 245 10*3/uL 150-450 [facility] Potassium [Moles/volume] in Serum or PlasmaOrdered By: Jennyfer Winkler on 01-29-2024 Potassium [Moles/Vol] 3.9 mmol/L 3.5-5.1 [facility] Protein Test strip (U) [Mass /Vol]Ordered By: Jennyfer Winkler on 01-29-2024 Protein (U) [Mass/Vol] Negative Negative [facility] Protein [Mass/volume] in Ser um or PlasmaOrdered By: Jennyfer Winkler on 01-29-2024 Protein [Mass/Vol] 8.0 g/dL 6.4-8.9 [facility] RBC Auto (Bld) [#/Vol]Ordere d By: Jennyfer Winkler on 01-29-2024 RBC (Bld) [#/Vol] 5.83 10*6/uL High 3.90-5.60 [facility] RBC morphologyOrdered By: Ella Winkler on 01-29-2024 RBC morphology finding Nom (Bld) Normal Normal [facility] Segmented neutrophils/100 WB C Manual cnt (Bld)Ordered By: Jennyfer Winkler on 01-29-2024 Segmented neutrophils/100 WBC (Bld) 58 % 50-70 [facility] Serum or plasma albumin/glob ulin mass ratioOrdered By: Jennyfer Winkler on 01-29-2024 Albumin/Globulin [Mass ratio] 1.6 {ratio} [facility] Serum or plasma anion gap de terminationOrdered By: Jennyfer Winkler on 01-29-2024 Anion gap [Moles/Vol] 10.5 mmol/L 6.0-15.0 [facility] Serum or plasma non-glucuron idated bilirubin measurement (mass/volume)Ordered By: Jennyfer Winkler on 01-29-2024 Bilirubin.indirect [Mass/Vol] 0.7 mg/dL [facility] Sodium [Moles/volume] in Ser um or PlasmaOrdered By: Jennyfer Winkler on 01-29-2024 Sodium [Moles/Vol] 131 mmol/L Low 136-145 [facility] Specific gravity Test strip (U) [Rel density]Ordered By: Jennyfer Winkler on 01-29-2024 Specific gravity (U) [Rel density] 1.003 1.001-1.030 [facility] Urea nitrogen [Mass/volume] in Serum or PlasmaOrdered By: Jennyfer Winkler on 01-29-2024 Urea nitrogen [Mass/Vol] 6 mg/dL Low 7-25 [facility] Urine appearanceOrdered By: Jennyfer Winkler on 01-29-2024 Appearance (U) Clear Clear [facility] Urobilinogen Test strip (U) [Mass/Vol]Ordered By: Jennyfer Winkler on 01-29-2024 Urobilinogen (U) [Mass/Vol] Normal mg/dL Normal [facility] Variant lymphocytes/100 WBC Manual cnt (Bld)Ordered By: Jennyfer Winkler on 01-29-2024 Variant lymphocytes/100 WBC (Bld) 6 % 0-12 [facility] WBC Auto (Bld) [#/Vol]Ordere d By: Jennyfer Winkler on 01-29-2024 WBC (Bld) [#/Vol] 6.8 10*3/uL 4.1-10.5 [facility] pH Test strip (U)Ordered By: Jennyfer Winkler on 01-29-2024 pH (U) 7.5 [pH] 5.0-9.0 [facility] CBC AUTO DIFFon 03-26-2022 BASO # 0.1 103/ul Normal 0.0-0.1 [facility] Comment on above: Performed By: #### C BC #### [facility] [address] [address] [address] Pravin Travis Basophils/100 WBC (Bld) 0.7 % Normal 0.2-2.0 [facility] Comment on above: Performed By: #### C BC #### [facility] [address] [place] [address] Dr. Pravin Travis EO # 0.6 103/ul Normal 0.0-0.7 [facility] Comment on above: Performed By: #### C BC #### [facility] [address] [place] [address] Dr. Pravin Travis Eosinophils/100 WBC (Bld) 7.4 % Critically high 0.9-7.0 [facility] Comment on above: Performed By: #### C BC #### [facility] [address] [place] [address] Dr. Pravin Travis Erythrocyte distribution width (RBC) [Ratio] 12.3 % Normal 11.0-15.0 [facility] Comment on above: Performed By: #### C BC #### [facility] [address] [place] [address] Dr. Pravin Travis Hematocrit (Bld) [Volume fraction] 47.2 % Normal 42.0-54.0 [facility] Comment on above: Performed By: #### C BC #### [facility] [address] [place] [address] Dr. Pravin Travis Hemoglobin (Bld) [Mass/Vol] 16.2 g/dL Normal 14.0-18.0 [facility] Comment on above: Performed By: #### C BC #### [facility] [address] [place] [address] Dr. Pravin Travis IG # 0.03 10e3/ul Normal 0.00-0.03 [facility] Comment on above: Performed By: #### C BC #### [facility] [address] [place] [address] Dr. Pravin Travis IG % 0.4 % Normal 0.0-0.5 [facility] Comment on above: Performed By: #### C BC #### [facility] [address] [place] [address] Dr. Pravin Travis LYMPH # 2.1 103/ul Normal 1.2-3.8 [facility] Comment on above: Performed By: #### C BC #### [facility] [address] [place] [address] Dr. Pravin Travis Lymphocytes/100 WBC (Bld) 24.3 % Normal 20.5-60.0 [facility] Comment on above: Performed By: #### C BC #### [facility] [address] [place] [address] Dr. Pravin Travis MANUAL DIFF REQ NO Normal [facility] Comment on above: Performed By: #### C BC #### [facility] [address] [place] [address] Dr. Pravin Travis MCH (RBC) [Entitic mass] 32.6 pg Normal 25.9-34.0 [facility] Comment on above: Performed By: #### C BC #### [facility] [address] [place] [address] Dr. Pravin Travis MCHC (RBC) [Mass/Vol] 34.3 g/dL Normal 29.9-35.2 [facility] Comment on above: Performed By: #### C BC #### [facility] [address] [place] [address] Dr. Pravin Travis MCV (RBC) [Entitic vol] 95.0 fL Critically high 80.0-94 .0 [facility] Comment on above: Performed By: #### C BC #### [facility] [address] [place] [address] Dr. Pravin Travis MONO # 0.8 103/ul Normal 0.3-0.8 [facility] Comment on above: Performed By: #### C BC #### [facility] [address] [place] [address] Dr. Pravin Travis Monocytes/100 WBC (Bld) 9.7 % Normal 1.7-12.0 [facility] Comment on above: Performed By: #### C BC #### [facility] [address] [place] [address] Dr. Prvain Travis NEUT # 4.9 103/ul Normal 1.4-6.5 [facility] Comment on above: Performed By: #### C BC #### [facility] [address] [place] [address] Dr. Pravin Travis Neutrophils/100 WBC (Bld) 57.5 % Normal 43.0-75.0 [facility] Comment on above: Performed By: #### C BC #### [facility] [address] [place] [address] Dr. Pravin Travis Platelet mean volume (Bld) [Entitic vol] 10.4 fL Normal 9.5-13.5 [facility] Comment on above: Performed By: #### C BC #### [facility] [address] [place] [address] Dr. Pravin Travis PLT 215 103/ul Normal 150-450 [facility] Comment on above: Performed By: #### C BC #### [facility] [address] [place] [address] Dr. Pravin Travis RBC 4.97 106/ul Normal 4.70-6.10 [facility] Comment on above: Performed By: #### C BC #### [facility] [address] [place] [address] Dr. Pravin Travis WBC 8.6 103/ul Normal 4.0-11.0 [facility] Comment on above: Performed By: #### C BC #### [facility] [address] [place] [address] ABD/PELV W CONon [...] by: ALANA MORROW Date: 2022-03-26 01:45 Normal [facility] ER URINE PROFILEon 2 Bilirubin Ql (U) Negative Normal NEGATIVE [facility] Comment on above: Performed By: #### E RUR #### [facility] [address] [place] [address] Dr. Pravin Travis Clarity (U) SL CLOUDY Abnormal CLEAR [facility] Comment on above: Performed By: #### E RUR #### [facility] [address] [place] [address] Dr. Pravin Travis Color (U) LT. YELLOW Normal YELLOW [facility] Comment on above: Performed By: #### E RUR #### [facility] [address] [place] [address] Dr. Pravin Travis ERUAHMayi A micrscopic examination will be performed if indicated. Normal [facility] Comment on above: Performed By: #### E RUR #### [facility] [address] [place] [address] Dr. Pravin Travis Glucose Ql (U) Negative Normal NEGATIVE [facility] Comment on above: Performed By: #### E RUR #### [facility] [address] [place] [address] Dr. Pravin Travis Hemoglobin Ql (U) Negative Normal NEGATIVE [facility] Comment on above: Performed By: #### E RUR #### [facility] [address] [place] [address] Dr. Pravin Travis Ketones Ql (U) Negative Normal NEGATIVE [facility] Comment on above: Performed By: #### E RUR #### [facility] [address] [place] [address] Dr. Pravin Travis LEUKOCYTES Negative Normal NEGATIVE [facility] Comment on above: Performed By: #### E RUR #### [facility] [address] [place] [address] Dr. Pravin Travis Nitrite Ql (U) Negative Normal NEGATIVE [facility] Comment on above: Performed By: #### E RUR #### [facility] [address] [place] [address] Dr. Pravin Travis pH (U) 7.5 [pH] Normal 5-9 [facility] Comment on above: Performed By: #### E RUR #### [facility] [address] [place] [address] Dr. Pravin Travis SPEC GRAVITY 1.015 Normal 1.005-<=1.02 5 [facility] Comment on above: Performed By: #### E RUR #### [facility] [address] [place] [address] Dr. Pravin Travis UA PROTEIN Negative Normal NEGATIVE/ TRACE [facility] Comment on above: Performed By: #### E RUR #### [facility] [address] [place] [address] Dr. Pravin Travis UR MICRO IND NOT INDICATED Normal [facility] Comment on above: Performed By: #### E RUR #### [facility] [address] [place] [address] Dr. Pravin Travis Urobilinogen Qn (U) 0.2 {Katie'U}/dL Normal 0.2 - 1. 0 [facility] Comment on above: Performed By: #### E RUR #### [facility] [address] [address] [address] Pravin Travis PROF 14(COMP METB)on 022 Albumin [Mass/Vol] 4.3 g/dL Normal 3.4-5.0 [facility] Comment on above: Performed By: #### C MP #### [facility] [address] [address] [address] Pravin Travis Albumin/Globulin [Mass ratio] 1.3 {ratio} Normal [facility] Comment on above: Performed By: #### C MP #### [facility] [address] [place] [address] Dr. Pravin Travis ALP [Catalytic activity/Vol] 92 U/L Normal 46-116 [facility] Comment on above: Performed By: #### C MP #### [facility] [address] [place] [address] Dr. Pravni Travis ALT [Catalytic activity/Vol] 31 U/L Normal 16-63 [facility] Comment on above: Performed By: #### C MP #### [facility] [address] [place] [address] Dr. Pravin Travis Anion gap [Moles/Vol] 10.9 mmol/L Normal [facility] Comment on above: Performed By: #### C MP #### [facility] [address] [place] [address] Dr. Pravin Travis AST [Catalytic activity/Vol] 31 U/L Normal 15-37 [facility] Comment on above: Performed By: #### C MP #### [facility] [address] [place] [address] Dr. Pravin Travis Bilirubin [Mass/Vol] 0.5 mg/dL Normal 0.2-1.0 [facility] Comment on above: Performed By: #### C MP #### [facility] [address] [place] [address] Dr. Pravin Travis Calcium [Mass/Vol] 9.3 mg/dL Normal 8.5-10.1 [facility] Comment on above: Performed By: #### C MP #### [facility] [address] [address] [address] Pravin Travis Chloride [Moles/Vol] 103 mmol/L Normal 98-107 [facility] Comment on above: Performed By: #### C MP #### [facility] [address] [place] [address] Dr. Pravin Travis CO2 [Moles/Vol] 29.8 mmol/L Normal 21.0-32.0 [facility] Comment on above: Performed By: #### C MP #### [facility] [address] [place] [address] Dr. Pravin Travis Creatinine [Mass/Vol] 1.22 mg/dL Normal 0.70-1.30 [facility] Comment on above: Performed By: #### C MP #### [facility] [address] [place] [address] Dr. Pravin Travis EGFR-AF MALTESE >60 Normal >=60 [facility] Comment on above: Performed By: #### C MP #### [facility] [address] [place] [address] Dr. Pravin Travis EGFR-NON AF MALTESE >60 Normal >=60 [facility] Comment on above: Performed By: #### C MP #### [facility] [address] [place] [address] Dr. Pravin Travis Globulin (S) [Mass/Vol] 3.4 g/dL Normal [facility] Comment on above: Performed By: #### C MP #### [facility] [address] [address] [address] Pravin Travis Glucose [Mass/Vol] 91 mg/dL Normal 74-106 [facility] Comment on above: Performed By: #### C MP #### [facility] [address] [place] [address] Dr. Pravin Travis Potassium [Moles/Vol] 3.7 mmol/L Normal 3.5-5.1 [facility] Comment on above: Performed By: #### C MP #### [facility] [address] [place] [address] Dr. Pravin Travis Protein [Mass/Vol] 7.7 g/dL Normal 6.4-8.2 [facility] Comment on above: Performed By: #### C MP #### [facility] [address] [address] [address] Pravin Travis Sodium [Moles/Vol] 140 mmol/L Normal 136-145 [facility] Comment on above: Performed By: #### C MP #### [facility] [address] [address] [address] Pravin Travis Urea nitrogen [Mass/Vol] 11.0 mg/dL Normal 7.0-18.0 [facility] Comment on above: Performed By: #### C MP #### [facility] [address] [place] [address] Dr. Pravin Travis Urea nitrogen/Creatinine [Mass ratio] 9.0 mg/mg Normal [facility] Comment on above: Performed By: #### C MP #### [facility] [address] [place] [address] Dr. Pravin Travis COVID Quick Testingon 2021 Result Positive [facility] Other COVID Quick Testingon 2020 Result Negative [facility] Other Quick Fluon 08-11-2021 FLUAV Ab CF (S) [Titer] Negative [facility] Other FLUBV Ab CF (S) [Titer] Negative [facility] Other Vital Signs Date Time Vital Sign Value Performing Clinician Facility 03-19-2025 16:30-0400 Diastolic blood pressure 113 mm[Hg] Cisco Furlong DO Work Phone: [facility] 03-19-2025 16:30-0400 Heart rate 76 /min Cisco eYekang DO Work Phone: [facility] 03-19-2025 16:30-0400 Respiratory rate 16 /min CiscoLaura Sapiens DO Work Phone: [facility] 03-19-2025 16:30-0400 SaO2% (BldA) [Mass fraction] 97 % Cisco Furlong DO Work Phone: [facility] 03-19-2025 16:30-0400 Systolic blood pressure 143 mm[Hg] Cisco Furlong DO Work Phone: [facility] 03-19-2025 16:00-0400 Body temperature 96.8 [degF] Cisco Furlong DO Work Phone: [facility] 03-19-2025 11:36-0400 Body height 172.72 cm Cisco Furlong DO Work Phone: [facility] 03-19-2025 11:36-0400 Body weight 90.9 kg Cisco Furlong DO Work Phone: [facility] 02-28-2025 12:24-0400 Body height 175.3 cm Lydia Sankovic PA-C Work Phone: [facility] 02-28-2025 12:24-0400 Body mass index (BMI) [Ratio] 29.53 kg/m2 Lydia Sankovic PA-C Work Phone: [facility] 02-28-2025 12:24-0400 Body temperature 97 [degF] Lydia Sankovic PA-C Work Phone: [facility] 02-28-2025 12:24-0400 Body weight 90.72 kg Lydia Sankovic PA-C Work Phone: [facility] 02-28-2025 12:24-0400 Diastolic blood pressure 93 mm[Hg] Lydia Sankovic PA-C Work Phone: [facility] 02-28-2025 12:24-0400 Heart rate 76 /min Lydia Sankovic PA-C Work Phone: [facility] 02-28-2025 12:24-0400 SaO2% (BldA) [Mass fraction] 97 % Lydia Sankovic PA-C Work Phone: [facility] 02-28-2025 12:24-0400 Systolic blood pressure 141 mm[Hg] Lydia Noelle ALAN-Remberto Work Phone: [facility] 02-18-2025 13:45-0400 Body height 172.72 cm Cisco Furlong DO Work Phone: [facility] 02-18-2025 13:45-0400 Body mass index (BMI) [Ratio] 28.8 kg/m2 Cisco Furlong DO Work Phone: [facility] 02-18-2025 13:45-0400 Body weight 86.18 kg Cisco Furlong DO Work Phone: [facility] 01-09-2025 12:53-0400 Diastolic blood pressure 109 mm[Hg] Mohamad Mouchli [facility] 01-09-2025 12:53-0400 Mean blood pressure 131 mm[Hg] Mohamad Mouchli [facility] 01-09-2025 12:53-0400 Systolic blood pressure 174 mm[Hg] Mohamad Mouchli [facility] 01-09-2025 12:43-0400 Blood Pressure Location Mohamad Mouchli [facility] 01-09-2025 12:43-0400 Diastolic blood pressure 117 mm[Hg] Mohamad Mouchli [facility] 01-09-2025 12:43-0400 Heart rate 80 /min Mohamad Mouchli [facility] 01-09-2025 12:43-0400 Systolic blood pressure 179 mm[Hg] Mohamad Mouchli [facility] 12-10-2024 13:07-0400 Body height 172.7 cm Cisco Furlong DO Work Phone: [facility] 12-10-2024 13:07-0400 Body mass index (BMI) [Ratio] 29.47 kg/m2 Cisco Furlong DO Work Phone: [facility] 12-10-2024 13:07-0400 Body temperature 98.4 [degF] Cisco Furlong DO Work Phone: [facility] 12-10-2024 13:07-0400 Body weight 87.91 kg Cisco Furlong DO Work Phone: [facility] 12-10-2024 13:07-0400 Diastolic blood pressure 90 mm[Hg] Cisco Furlong DO Work Phone: [facility] 12-10-2024 13:07-0400 Heart rate 102 /min Cisco Furlong DO Work Phone: [facility] 12-10-2024 13:07-0400 Respiratory rate 18 /min Cisco Furlong DO Work Phone: [facility] 12-10-2024 13:07-0400 SaO2% (BldA) [Mass fraction] 97 % Cisco Furlong DO Work Phone: [facility] 12-10-2024 13:07-0400 Systolic blood pressure 140 mm[Hg] Cisco Furlong DO Work Phone: [facility] 09-11-2024 14:23-0500 Body height 172.7 cm Cisco Furlong DO Work Phone: [facility] 09-11-2024 14:23-0500 Body mass index (BMI) [Ratio] 28.89 kg/m2 Cisco Furlong DO Work Phone: [facility] 09-11-2024 14:23-0500 Body temperature 97.9 [degF] Cisco Furlong DO Work Phone: [facility] 09-11-2024 14:23-0500 Body weight 86.18 kg Cisco Furlong DO Work Phone: [facility] 09-11-2024 14:23-0500 Diastolic blood pressure 90 mm[Hg] Cisco Furlong DO Work Phone: [facility] 09-11-2024 14:23-0500 Heart rate 105 /min Cisco Furlong DO Work Phone: [facility] 09-11-2024 14:23-0500 Respiratory rate 20 /min Cisco Furlong DO Work Phone: [facility] 09-11-2024 14:23-0500 SaO2% (BldA) [Mass fraction] 99 % Cisco Furlong DO Work Phone: [facility] 09-11-2024 14:23-0500 Systolic blood pressure 140 mm[Hg] Cisco Furlong DO Work Phone: [facility] 03-15-2024 16:08-0400 Body height 172.7 cm Cisco Furlong DO Work Phone: [facility] 03-15-2024 16:08-0400 Body mass index (BMI) [Ratio] 27.79 kg/m2 Cisco Furlong DO Work Phone: [facility] 03-15-2024 16:08-0400 Body temperature 97.7 [degF] Cisco Furlong DO Work Phone: [facility] 03-15-2024 16:08-0400 Body weight 82.92 kg Cisco Furlong DO Work Phone: [facility] 03-15-2024 16:08-0400 Diastolic blood pressure 70 mm[Hg] Cisco Furlong DO Work Phone: [facility] 03-15-2024 16:08-0400 Heart rate 79 /min Cisco Furlong DO Work Phone: [facility] 03-15-2024 16:08-0400 SaO2% (BldA) [Mass fraction] 97 % Cisco Furlong DO Work Phone: [facility] 03-15-2024 16:08-0400 Systolic blood pressure 120 mm[Hg] Cisco Furlong DO Work Phone: [facility] 03-03-2024 14:00-0400 Diastolic blood pressure 95 mm[Hg] DO Cisco Furlong Work Phone: [facility] 03-03-2024 14:00-0400 Heart rate 79 /min DO Cisco Furlong Work Phone: [facility] 03-03-2024 14:00-0400 Respiratory rate 18 /min DO Cisco Furlong Work Phone: [facility] 03-03-2024 14:00-0400 SaO2% (BldA) [Mass fraction] 95 % DO Cisco Furlong Work Phone: [facility] 03-03-2024 14:00-0400 Systolic blood pressure 147 mm[Hg] DO Cisco Furlong Work Phone: [facility] 03-03-2024 11:20-0400 Body temperature 98.2 [degF] DO Cisco Furlong Work Phone: [facility] 03-03-2024 11:18-0400 Body height 172.72 cm DO Cisco Furlong Work Phone: [facility] 03-03-2024 11:18-0400 Body weight 80.65 kg DO Cisco Furlong Work Phone: [facility] 02-02-2024 11:29-0400 Body temperature 98.6 [degF] Didi Orzech [facility] 02-02-2024 11:29-0400 Diastolic blood pressure 81 mm[Hg] Didi Orzech [facility] [facility] 02-02-2024 11:29-0400 Heart rate 77 /min Didi Orzech [facility] 02-02-2024 11:29-0400 Respiratory rate 16 /min Didi Orzech [facility] 02-02-2024 11:29-0400 Systolic blood pressure 136 mm[Hg] Didi Orzech [facility] 01-30-2024 01:11-0400 Heart rate 159 /min DO Cisco Furlong Work Phone: [facility] 01-30-2024 00:30-0400 Respiratory rate 22 /min DO Cisco Furlong Work Phone: [facility] 01-30-2024 00:30-0400 SaO2% (BldA) [Mass fraction] 97 % DO Cisco Furlong Work Phone: [facility] 01-29-2024 23:38-0400 Diastolic blood pressure 95 mm[Hg] DO Cisco Furlong Work Phone: [facility] 01-29-2024 23:38-0400 Systolic blood pressure 136 mm[Hg] DO Cisco Furlong Work Phone: [facility] 01-29-2024 22:45-0400 Body height 172.72 cm DO Cisco Furlong Work Phone: [facility] 01-29-2024 22:45-0400 Body weight 86.2 kg DO Cisco Furlong Work Phone: [facility] 01-29-2024 22:44-0400 Body temperature 98.3 [degF] DO Cisco Bonilla Work Phone: [facility] 12-09-2023 08:47-0400 Body height 172.7 cm Michelle Francis PSYCHOLOGIST ENGINEERING-CRIMINOLOGY PROFESSOR Work Phone: [facility] [employer] 12-09-2023 08:47-0400 Body mass index (BMI) [Ratio] 30.08 kg/m2 Michelle Tito PSYCHOLOGIST ENGINEERING-CRIMINOLOGY PROFESSOR Work Phone: [employer] 12-09-2023 08:47-0400 Body temperature 98.29 [degF] Michelle Francis PSYCHOLOGIST ENGINEERING-CRIMINOLOGY PROFESSOR Work Phone: [facility] 12-09-2023 08:47-0400 Body weight 89.72 kg Michelle Tito PSYCHOLOGIST ENGINEERING-CRIMINOLOGY PROFESSOR Work Phone: [facility] 12-09-2023 08:47-0400 Diastolic blood pressure 86 mm[Hg] Michelle Tito PSYCHOLOGIST ENGINEERING-CRIMINOLOGY PROFESSOR Work Phone: [employer] 12-09-2023 08:47-0400 Heart rate 82 /min Michelle Tito PSYCHOLOGIST ENGINEERING-CRIMINOLOGY PROFESSOR Work Phone: [facility] 12-09-2023 08:47-0400 Respiratory rate 18 /min Michellenisha Francis PSYCHOLOGIST ENGINEERING-CRIMINOLOGY PROFESSOR Work Phone: [facility] 12-09-2023 08:47-0400 SaO2% (BldA) [Mass fraction] 96 % Michelle Tito PSYCHOLOGIST ENGINEERING-CRIMINOLOGY PROFESSOR Work Phone: [employer] 12-09-2023 08:47-0400 Systolic blood pressure 120 mm[Hg] Michelle Tito PSYCHOLOGIST ENGINEERING-CRIMINOLOGY PROFESSOR Work Phone: [employer] 09-01-2021 13:30-0500 Body height 172.72 cm Tawnya Andre Other [employer] Other 09-01-2021 13:30-0500 Body mass index (BMI) [Ratio] 31.93 kg/m2 Tawnya Andre Other [employer] Other 09-01-2021 13:30-0500 Body temperature 97.4 [degF] Tawnya Andre Other [employer] Other 09-01-2021 13:30-0500 Body weight 95.26 kg Tawnya Andre Other [employer] Other 09-01-2021 13:30-0500 Respiratory rate 18 /min Tawnya Andre Other [employer] Other 09-01-2021 13:30-0500 SaO2% (BldA) [Mass fraction] 98 % Tawnya Andre Other [employer] Other 08-11-2021 12:00-0500 Body height 172.72 cm Mary Christine Other [employer] Other 08-11-2021 12:00-0500 Body mass index (BMI) [Ratio] 31.93 kg/m2 Mary Christine Other [employer] Other 08-11-2021 12:00-0500 Body temperature 96.9 [degF] Mary King Other [employer] Other 08-11-2021 12:00-0500 Body weight 95.26 kg Mary Christine Other [employer] Other 08-11-2021 12:00-0500 Respiratory rate 18 /min Marygunner King Other [employer] Other 08-11-2021 12:00-0500 SaO2% (BldA) [Mass fraction] 96 % Mary Christine Other [employer] Other Encounters Encounter Date Encounter Type Care Provider Facility Start: 04-23-2025 End: 04-23-2025 ambulatory Vivian Brady Facility:[facility] Start: 04-23-2025 End: 04-23-2025 Patient encounter procedure Vivian Brady [facility] Start: 04-08-2025 End: 04-08-2025 ambulatory Cisco Bonilla DO Work Phone: [facility] Work Phone: Start: 04-08-2025 End: 04-08-2025 [...] Start: 04-02-2025 End: 04-02-2025 ambulatory LYDIA DUBOISJESSICA Facility:[facility] Start: 03-22-2025 End: 03-27-2025 Refill Cisco Thomason Furlong DO Work Phone: [facility] Comment on above: Anxiety Start: 03-19-2025 End: 03-19-2025 Admission to same day surgery center Ehsan Avina DO -[facility] Start: 03-19-2025 End: 03-19-2025 ambulatory Cisco Furlong DO Work Phone: [facility] Work Phone: Start: 03-18-2025 End: 03-18-2025 Patient encounter procedure Ehsan Avina DO -Pre-Surgical Testing Work Phone: Start: 03-18-2025 End: 03-18-2025 ambulatory Cisco Furlong DO Work Phone: [facility] Work Phone: Start: 03-18-2025 Encounter for preprocedural laboratory examination Ehsan Avina [facility] Start: 03-13-2025 End: 03-13-2025 ambulatory Cisco Furlong DO Work Phone: [facility] Work Phone: Start: 03-13-2025 End: 03-13-2025 Patient encounter procedure Ehsan Avina DO -[facility] Work Phone: Start: 03-13-2025 End: 03-13-2025 Patient encounter procedure Ehsan Avina DO -[facility] Start: 03-13-2025 End: 03-13-2025 ambulatory Cisco Furlong DO Work Phone: [facility] Work Phone: Start: 03-12-2025 Non-patient / Non-visit Ehsan alanis DO -[facility] Work Phone: Start: 03-07-2025 End: 03-07-2025 [...] Start: 02-28-2025 End: 02-28-2025 ambulatory FELIPE ARIAS Facility:[facility] Start: 02-18-2025 End: 02-18-2025 ambulatory Cisco Bonilla DO Work Phone: [facility] Work Phone: Start: 02-18-2025 End: 02-18-2025 Patient encounter procedure Ehsan Avina DO -[facility] Work Phone: Start: 02-11-2025 End: 02-11-2025 [...] Start: 01-24-2025 End: 01-24-2025 [facility] Start: 01-24-2025 End: 01-24-2025 Patient encounter procedure Vivian Brady [facility] Start: 01-16-2025 End: 01-16-2025 Transcribe Orders Vivian Brady MD Work Phone: Referring Physician Comment on above: Constipation by outl et dysfunction (Primary Dx); Stress-related physiological response affecting medical condition Start: 01-09-2025 End: 01-09-2025 ambulatory Vivian Brady Facility:[facility] Start: 01-09-2025 End: 01-09-2025 Patient encounter procedure Vivian Brady [facility] Start: 12-31-2024 ambulatory Vivian Brady Facilit y:Satish Start: 12-31-2024 End: 12-31-2024 Telephone encounter Linda Marc CMA [facility] [...] Family Medicine Start: 12-10-2024 End: 12-10-2024 ambulatory [facility] Start: 12-10-2024 Encounter for genera l adult medical examination without abnormal findings [facility] Start: 12-10-2024 End: 12-10-2024 Patient encounter status Cisco Bonilla DO Work Phone: [facility] Start: 12-10-2024 End: 12-10-2024 Periodic preventive med est patient 40-64yrs Cisco Bonilla DO Work Phone: [facility] Internal Medicine - Family Medicine Comment on above: Well adult exam (Marilynn lawson Dx); Anxiety; Overweight; Iron overload; Encounter for screening for malignant neoplasm of prostate; Ex-smoker; Hypogonadism in male; Severe episode of recurrent major depressive disorder, without psychotic features ([facility]); Irritable bowel syndrome with both constipation and diarrhea Start: 12-10-2024 End: 12-10-2024 ambulatory [facility] Start: 12-10-2024 Encounter for genera l adult medical examination without abnormal findings [facility] Start: 11-02-2024 End: 11-02-2024 Orders Only Cisco Bonilla DO Work Phone: [facility] Start: 10-15-2024 End: 10-15-2024 Orders Only [...] 05-15-2024 Emergency department patient visit CISCO BONILLA [facility] Start: 04-04-2024 End: 04-10-2024 Telephone encounter Cisco Bonilla DO Work Phone: [facility] Family Medicine Start: 04-03-2024 End: 04-03-2024 Patient encounter procedure Didi X Orzech [facility] Start: 03-16-2024 End: 03-16-2024 Orders Only [...] Start: 03-15-2024 End: 03-15-2024 ambulatory CISCOCHELSEA BONILLA [facility] Start: 03-14-2024 End: 03-14-2024 Orders Only Cisco Bonilla DO Work Phone: [facility] Start: 03-03-2024 End: 03-03-2024 Emergency department patient visit DO Cisco Bonilla Work Phone: [facility] Work Phone: Start: 02-20-2024 End: 02-20-2024 Orders Only Cisco Bonilla DO Work Phone: [facility] Start: 02-17-2024 End: 02-18-2024 Evaluation and management of inpatient JENNYFER AUGUSTIN [facility] Start: 02-13-2024 End: 02-15-2024 Telephone encounter [...] procedure Didi X Orzech [facility] Start: 01-31-2024 End: 02-01-2024 Telephone encounter Barbara De La Torre CMA [facility] Start: 01-29-2024 End: 01-30-2024 Emergency department patient visit DO Cisco Carrillong Work Phone: [facility] Work Phone: Start: 12-09-2023 End: 12-09-2023 Office outpatient visit 15 minutes Michelle Francis PSYCHOLOGIST ENGINEERING-[facility] Work Phone: [facility] Comment on above: Irritable bowel synd chaitanya with constipation (Primary Dx); Gastroesophageal reflux disease, unspecified whether esophagitis present; 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 ([facility]) Start: 03-26-2022 End: 03-26-[address] CISCO BONILLA Facility: Start: 09-01-2021 End: 09-01-2021 ambulatory Tawnya Andre Other [employer] Other Start: 09-01-2021 Office outpatient vi sit 15 minutes Tawnya Andre [facility] Start: 08-11-2021 End: 08-11-2021 ambulatory Mary King Other [employer] Other Start: 08-11-2021 Office outpatient vi sit 15 minutes Mary King [facility] Start: 08-30-2016 End: 08-31-2016 Ambulatory GRADY DHALIWAL Facility:[facility] Procedures Date Procedure Procedure Detail Performing Clinician Start: 03-19-2025 Open reduction of fr acture with internal fixation Cisco Carcamolong DO Work Phone: Start: 03-19-2025 X-ray of right foot Den nis Furlong DO Work Phone: Start: 03-13-2025 X-ray of right foot Den nis Furlong DO Work Phone: Start: 02-28-2025 [facility]ULT [facility] Violette Maurer PSYCHOLOGIST ENGINEERING.CRIMINOLOGY PROFESSOR Work Phone: Start: 12-10-2024 Adult depression scr eening assessment Cisco Bonilla DO Work Phone: Start: 12-10-2024 Lipid 1996 panel - S dereje or Plasma Sahil Bergeron RN Start: 03-15-2024 Follow-up visit Follow-up CISCO BONILLA Start: 03-15-2024 Adult depression scr eening assessment iCsco Bonilla DO Work Phone: Start: 03-03-2024 Diagnostic radiograp hy of abdomen DO Cisco Bonilla Work Phone: Start: 02-17-2024 Colonoscopy Cisco tang DO Work Phone: Start: 01-29-2024 CT of abdomen and pe lvis without contrast DO Cisco Bonilla Work Phone: Start: 12-09-2023 Adult depression scr eening assessment Michelle Francis PSYCHOLOGIST ENGINEERING-CRIMINOLOGY PROFESSOR Work Phone: Appendectomy Didi [employer] [facility] Colonoscopy [facility] Plan of Treatment Date Care Activity Detail Author Start: 02-16-2034 Screening for malign ant neoplasm of colon Colonoscopy [employer] Start: 12-10-2029 Lipid panel Lipid Screening [facility] Start: 12-10-2029 Prostate specific antigen measurement Prostate Cancer Screening Discussion [facility] Start: 12-11-2027 Diabetes Screening Diabetes Screenin g [facility] Start: 12-10-2025 Administration of varicella zoster vaccine Zoster (Shingles) Vaccine (1 of 2) [employer] Comment on above: Postponed from 09/04 (Patient Refused) Start: 12-10-2025 Adult BMI Screening Adult BMI Screen ing [employer] Start: 12-10-2025 COVID-19 Vaccine ( season) COVID-19 Vaccine () [facility] Comment on above: Postponed from 04/22 (Patient Refused) Start: 12-10-2025 Depression Screening Depression Scre ening [facility] Start: 12-10-2025 Tobacco Screening Tobacco Screening [facility] Start: 09-11-2025 Adult BMI Screening Adult BMI Screen ing [facility] Start: 09-11-2025 Tobacco Screening Tobacco Screening [facility] Start: 04-22-2025 Influenza vaccination P [facility] Start: 04-02-2025 End: 04-02-2025 Admission to same day surgery center 04/02/2025 11:30 AM EDT [facility] Colorectal Surgery [address] [id number] Lydia Drake PA-C [address] [place] [address] f/u Colorectal Surgery Comment on above: f/u Start: 03-28-2025 End: 03-28-2025 Patient encounter procedure 03/28/2025 1:30 PM EDT OT/PT/Speech Visit [facility] [address] [id number] Belkys Smith, PT, DPT tightness in my rectum, anus i cant push out poop [facility] Comment on above: tightness in my rect um, anus i cant push out poop Start: 03-19-2025 [facility] Start: 03-19-2025 X-ray of right foot XR foot RT 2V [facility] Start: 03-19-2025 XR Foot - right 2 Views [facility] Start: 03-18-2025 [facility] Start: 03-15-2025 End: 03-15-2025 Admission to same day surgery center 03/15/2025 4:30 PM EDT [facility] Colorectal Surgery [address] [address] George Navarrete DO [address] [place] [address] [facility] Colorectal Surgery Comment on above: [facility] Start: 03-15-2025 Adult BMI Screening Adult BMI Screen ing [facility] Start: 03-15-2025 Depression Screening Depression Scre ening [facility] Start: 03-15-2025 Tobacco Screening Tobacco Screening [facility] Start: 03-13-2025 X-ray of right foot XR foot RT min 3 V* [facility] Start: 03-13-2025 XR Foot - right GE 3 Views [facility] Start: 02-21-2025 End: 02-21-2025 Patient encounter procedure 02/21/2025 10:30 AM EDT Office Visit General Surgery [address] [address] Jey Kapadia MD [address] [place] [address] Consult Botox Injection General Surgery Comment on above: Consult Botox Inject ion Start: 02-16-2025 Adult BMI Screening Adult BMI Screen ing [facility] Start: 02-16-2025 Screening for malign ant neoplasm of colon [facility] Start: 02-16-2025 Tobacco Screening Tobacco Screening [facility] Start: 02-05-2025 Tobacco Screening Tobacco Screening [facility] Start: 12-10-2024 End: 12-10-2025 CT Chest for screening WO contrast CT low dose lung screening (Annual) Imaging Routine Ex-smoker Expected: 12/10/2024, Expires: 12/10/2025 [facility] Comment on above: Expected: 12/10/2024 , Expires: 12/10/2025 Start: 12-10-2024 End: 12-10-2024 Patient encounter procedure 12/10/2024 1:00 PM EDT [facility] [address] [place] [address] Cisco Bonilla DO [address], [place] [address] [facility] Start: 12-08-2024 Adult BMI Screening Adult BMI Screen ing [facility] Start: 12-08-2024 Depression Screening Depression Scre ening [facility] Start: 12-08-2024 Tobacco Screening Tobacco Screening [facility] Start: 09-26-2024 End: 09-26-2024 Patient encounter procedure 09/26/2024 2:00 PM EST Office Visit [facility] [address] [place] [address] Aníbal Will, DO [address] [place] [address] [facility] Start: 06-04-2024 End: 06-04-2024 Patient encounter procedure 06/04/2024 2:15 PM EDT Office Visit [facility] Internal Medicine - Family Medicine [address] [place] [address] Cisco Bonilla DO [address] [place] [address] [facility] - [facility] Start: 04-22-2024 Covid-19 Vaccine ( season) Covid-19 Vaccine ( season) [facility] Start: 04-22-2024 COVID-19 Vaccine ( season) COVID-19 Vaccine ( season) [facility] Start: 04-22-2024 Influenza vaccination Influenza Vacc ine [facility] Start: 03-15-2024 End: 03-15-2024 Patient encounter procedure 03/15/2024 3:45 PM EDT Office Visit [facility] Internal Medicine - Family Medicine [address] [place] [address] Cisco Bonilla DO [address] [place] [address] [facility] - [facility] Start: 02-18-2024 Adult BMI Screening Adult BMI Screen ing [facility] Start: 02-18-2024 Depression Screening Depression Scre ening [facility] Start: 02-18-2024 Tobacco Screening Tobacco Screening [facility] Start: 02-17-2024 End: 02-17-2024 Admission to same day surgery center 02/17/2024 2:30 PM EDT - 02/17/2024 3:30 PM EDT Surgery [facility] - Endoscopy [address] [place] [id number] Jennyfer Augustin, DO [address] [place] [address] COLONOSCOPY DIAGNOSTIC / SCREENING [34778 (CPT )] [facility] Comment on above: COLONOSCOPY DIAGNOST IC / SCREENING [36503 (CPT )] Start: 02-17-2024 End: 02-17-2024 Colonoscopy flx dx w/collj spec when pfrmd COLONOSCOPY DIAGNOSTIC / SCREENING change in bowel habits 02/17/2024 2:30 PM EDT [facility] Start: 02-17-2024 Subsequent hospital visit by physician 02/17/2024 2:30 PM EDT Hospital Encounter [facility] [address] [place] [id number] Jennyfer Augustin, DO [address] [place] [address] Change in bowel habits (Primary Dx) [facility] Comment on above: Change in bowel habi ts (Primary Dx) Start: 02-16-2024 End: 02-16-2024 ambulatory 02/16/2024 3:50 PM EDT Support Visit [facility] - Pre Admit [address] [place] [phone] [facility] Pre Ad[facility] Start: 01-29-2024 CT Abdomen and Pelvi s WO contrast [facility] Start: 01-29-2024 CT of abdomen and pe lvis without contrast CT abdomen pelvis wo con [facility] Start: 10-28-2023 DTaP,Tdap and Td Vaccines (2 - Td or Tdap) DTaP,Tdap and Td Vaccines (2 - Td or Tdap) [facility] Start: 10-28-2023 Urine microalbumin profile DTaP,Tdap,Td Vaccine (2 - Td or Tdap) [facility] Start: 04-22-2023 COVID-19 Vaccine ( season) COVID-19 Vaccine ( season) [facility] Start: 2018 Administration of varicella zoster vaccine Zoster (Shingles) Vaccine (1 of 2) [facility] Start: 2018 Pneumococcal Vaccine : 50+ (1 of 1 - PCV) Pneumococcal Vaccine: 50+ (1 of 1 - PCV) [facility] Start: 2018 Shingrix Vaccine (1 of 2) Shingrix Vaccine (1 of 2) [facility] Start: 2013 Diabetes Screening Diabetes Screenin g [facility] Start: 2013 Prostate specific antigen measurement Prostate Cancer Screening Discussion [facility] Start: 2013 Screening for malign ant neoplasm of colon [facility] Start: 2003 Lipid panel Lipid Screening [facility] Start: 1987 Hepatitis B Vaccine (1 of 3 - 19+ 3-dose series) Hepatitis B Vaccine (1 of 3 - 19+ 3-dose series) [facility] Start: 1987 Pneumococcal Vaccine : 50+ (1 of 2 - PCV) Pneumococcal Vaccine: 50+ (1 of 2 - PCV) [facility] Start: 1987 Shingrix Vaccine (1 of 2) Shingrix Vaccine (1 of 2) [facility] Start: 1987 Urine microalbumin profile DTaP,Tdap,Td Vaccine (1 - Tdap) [facility] Start: 1986 Adult BMI Follow Up Plan Adult BMI Follow Up Plan [facility] Start: 1986 Anxiety Screening Anxiety Screening [facility] Start: 1986 Depression Screening Depression Scre ening [facility] Start: 1986 Hepatitis C screening Hepatitis C Sc juan josé [facility] Start: 1986 HIV screening HIV Screening [facility] End: 09-11-2025 CBC panel - Blood by Automated count CBC Lab Routine Irritable bowel syndrome with both constipation and diarrhea Essential hypertension, benign 1 Occurrences starting 09/11/2024 until 09/11/2025 [employer] Comment on above: 1 Occurrences starti ng 09/11/2024 until 09/11/2025 End: 12-10-2025 CBC panel - Blood by Automated count CBC without diff Lab Routine Hypogonadism in male 1 Occurrences starting 12/10/2024 until 12/10/2025 [employer] Comment on above: 1 Occurrences starti ng 12/10/2024 until 12/10/2025 End: 02-04-2025 Colonoscopy Colonoscopy GI Routine Change in bowel habits Polyp of colon, unspecified part of colon, unspecified type 1 Occurrences starting 02/05/2024 until 02/04/2025 [employer] Work Phone: Comment on above: 1 Occurrences starti ng 02/05/2024 until 02/04/2025 Colonoscopy flx dx w/collj spec when pfrmd COLONOSCOPY DIAGNOSTIC / SCREENING Change in bowel habits [facility] End: 09-11-2025 Comprehensive metabolic 2000 panel - Serum or Plasma Comprehensive metabolic panel Lab Routine Essential hypertension, benign 1 Occurrences starting 09/11/2024 until 09/11/2025 [employer] Comment on above: 1 Occurrences starti ng 09/11/2024 until 09/11/2025 End: 12-10-2025 Comprehensive metabolic 2000 panel - Serum or Plasma Comprehensive metabolic panel Lab Routine Well adult exam 1 Occurrences starting 12/10/2024 until 12/10/2025 [employer] Work Phone: Comment on above: 1 Occurrences starti ng 12/10/2024 until 12/10/2025 End: 12-10-2025 Iron [Mass/volume] in Serum or Plasma Iron level Lab Routine Iron overload 1 Occurrences starting 12/10/2024 until 12/10/2025 [employer] Comment on above: 1 Occurrences starti ng 12/10/2024 until 12/10/2025 End: 12-10-2025 Lipid 1996 panel - Serum or Plasma Lipid profile Lab Routine Well adult exam 1 Occurrences starting 12/10/2024 until 12/10/2025 [employer] Comment on above: 1 Occurrences starti ng 12/10/2024 until 12/10/2025 Patient Education [facility] Work Phone: Patient referral [facility] Work Phone: End: 09-11-2025 Prostatic specific antigen screen Prostatic specific antigen screen Lab Routine Encounter for screening for malignant neoplasm of prostate 1 Occurrences starting 09/11/2024 until 09/11/2025 [employer] Comment on above: 1 Occurrences starti ng 09/11/2024 until 09/11/2025 End: 12-10-2025 Prostatic specific antigen screen Prostatic specific antigen screen Lab Routine Encounter for screening for malignant neoplasm of prostate 1 Occurrences starting 12/10/2024 until 12/10/2025 [employer] Comment on above: 1 Occurrences starti ng 12/10/2024 until 12/10/2025 End: 09-11-2025 TSH with Reflex TSH with Reflex Lab Routine Irritable bowel syndrome with both constipation and diarrhea Essential hypertension, benign Anxiety 1 Occurrences starting 09/11/2024 until 09/11/2025 [employer] Work Phone: Comment on above: 1 Occurrences starti ng 09/11/2024 until 09/11/2025 End: 12-10-2025 TSH with Reflex TSH with Reflex Lab Routine Anxiety Overweight 1 Occurrences starting 12/10/2024 until 12/10/2025 [employer] Comment on above: 1 Occurrences starti ng 12/10/2024 until 12/10/2025 XR Foot - right GE 3 Views [facility] Immunizations Immunization Date Immunization Notes Care Provider Fa cili 06-20-2021 influenza virus vaccine, unspecified formulation Michelle Francis PSYCHOLOGIST ENGINEERING-CRIMINOLOGY PROFESSOR Work Phone: [facility] 06-20-2021 influenza, injectabl e, quadrivalent, preservative free Michelle Francis PSYCHOLOGIST ENGINEERING-CRIMINOLOGY PROFESSOR Work Phone: [employer] 06-20-2021 SARS-CoV-2 (COVID-19 ) mRNA BNT-162b2 vax Didi Orzech [facility] 12-08-2020 SARS-CoV-2 (COVID-19 ) mRNA BNT-162b2 vax Didi Orzech [facility] 11-18-2020 SARS-CoV-2 (COVID-19 ) mRNA BNT-162b2 vax Didi Orzech [facility] 04-06-2020 influenza virus vaccine, unspecified formulation Didi Orzech [facility] 04-06-2020 influenza, injectabl e, quadrivalent, preservative free Michelle Tito PSYCHOLOGIST ENGINEERING-CRIMINOLOGY PROFESSOR Work Phone: [facility] 06-07-2019 influenza virus vaccine, unspecified formulation Didi Orzech [facility] 06-07-2019 influenza, injectabl e, quadrivalent, preservative free Michelle Tito PSYCHOLOGIST ENGINEERING-CRIMINOLOGY PROFESSOR Work Phone: [facility] 10-27-2013 tetanus toxoid, redu brock diphtheria toxoid, and acellular pertussis vaccine, adsorbed Michelle Tito PSYCHOLOGIST ENGINEERING-CRIMINOLOGY PROFESSOR Work Phone: [facility] Payers Date Payer Category Payer Self-pay [id number] 2024 Medicaid [id number] 2024 Medicaid [id number] 1970 Unknown [id number] [id number] 1970 Unknown [id number] 2.16.840.1.185349.3.579.2.1285 1968 Unknown [id number] 2.16.840.1.719088.3.579.2.1285 1968 Unknown [id number] 2.16.840.1.340456.3.579.2.1285 1968 Unknown [id number] 2.16.840.1.948611.3.579.2.1285 1968 Unknown [id number] 2.16.840.1.817109.3.579.2.1285 1968 Unknown [id number] 2.16.840.1.130473.3.579.2.1285 1968 Unknown [id number] 2.16.840.1.177098.3.579.2.1285 1968 Unknown [id number] 2.16.840.1.832564.3.579.2.1285 1968 Unknown [id number] 2.16.840.1.607000.3.579.2.7 1968 Unknown [id number] 2.16.840.1.706098.3.579.2. 1968 Unknown [id number] 2.16.840.1.046067.3.579.2.727 1959 Private Health Insurance [id number] Medicaid [id number] Unknown [id number] 2.1 [id number] Unknown Simla BC/BS [id number] Unknown [id number] 2.16.840.1.239437.3.579.2.531 Unknown [id number] 2.16.840.1.905951.3.579.2.531 Unknown [id number] 2.16.840.1.082537.3.579.2.531 Social History Date Type Detail Facility Unknown if ever smoked [employer] Other Start: 09-11-2024 End: 02-28-2025 Sex Assigned At [facility] Start: 07-23-1985 End: 03-03-2024 Tobacco smoking status NHIS Smoker (finding) [facility] Start: 1970 Sex Assigned At Male [facility] Start: 02-02-2024 End: 01-24-2025 Tobacco smoking status Ex-smoker (finding) [facility] Start: 11-11-2015 Tobacco smoking status Never [facility] Start: 07-23-1985 End: 12-20-2018 History of tobacco use Cigarette Smoker [facility] Start: 12-09-2023 End: 02-28-2025 Cigarettes smoked current (pack per day) - Reported 1 [facility] History of tobacco use Passive smoker [facility] Start: 12-09-2023 Tobacco use and exposure Smokeless tobacco non-user [facility] Start: 09-11-2024 End: 12-10-2024 Alcoholic beverage intake Current drinker of alcohol (finding) [facility] Has the [employer], [employer], or water [employer] threatened to shut off services in your home in past 12Mo Yes [facility] Are you now , , , , never or living with a partner? Never [facility] How often to you hav e a drink containing alcohol? Monthly or less [facility] How often do you hav e 6 or more drinks on 1 occasion? Less than monthly [facility] How hard is it for y ou to pay for the very basics like food, housing, medical care, and heating Very hard [facility] Do you feel stress - tense, restless, nervous, or anxious, or unable to sleep at night because your mind is troubled all the time - these days [OSQ] Very much [facility] Start: 08-01-2022 Education 14 [facility] Start: 08-04-2022 Tobacco Comment vape, today [facility] Start: 10-12-2019 Alcohol Comment Occasional [facility] Start: 1970 Sex assigned at Not on file [facility] Start: 03-27-2015 Sex Male (finding) [facility] How many standard drinks containing alcohol do you have on a typical day? 10 or more [facility] Sexual Orientation [facility] Tobacco smoking stat us [facility] Tobacco smoking consumption unknown [facility] Start: 03-03-2024 End: 03-19-2025 Tobacco smoking status UTIS Smokes tobacco daily (finding) [facility] Start: 03-07-2025 Gender identity Identifies as male gender (finding) [facility] Start: 03-07-2025 Sexual orientation Heterosexual (finding) [facility] Medical Equipment Procedure Code Equipment Code Equipment Origin al Text Equipment Identifier Dates ORIF, fracture, wrist Orthopaedic bone screw (non-sliding) ()[id number] [facility] Start: 03-19-2025 Goals Date Patient Goal Desired Activity /State Personal health goal Comment on above: Formatting of this n ote might be different from the original. Evaluation of progress towards goal: with support from friends and family, patient needs to fllow up with [facility] Functional Status Date Assessment Result Facility 01-09-2025 Functional Status N/A [facility] 02-02-2024 Functional Status N/A [facility] Clinical Notes 08-11-2021 to 04-03-2025 Lydia Drake PA-C - 04/03/2025 8:29 AM Lydia Watkins PA-C - 04/02/2025 11:30 AM EDTTelephone Encounter - Lydia Drake PA-C - 03/07/2025 1:37 PM EDTPatient Instructions Note Date & Type Note Facility 04-03-2025 Note HNO ID: [id number] Author: LYDIA DRAKE PA-C Service: ? Author Type: Physician [employer] Pasture Farm Worker Type: Progress Notes Filed: 04/03/2025 08:41 Note [...] Anticipated surgical procedure: none Lydia Drake PA-C [facility] 04-03-2025 History of Presen t illness Narrative [...] Lydia Drake PA-C documented in this encounter [facility] 04-02-2025 History of Presen t illness Narrative COLORECTAL SURGERY VIRTUAL VISIT FOLLOW UP 04/02/2025 I have communicated my name and active licensure. The patient's identity and physical location were verified at the time of this visit. Either the patient or their legal treasury representative has been informed of the risks [...] February 28, 2025. He was referred to [facility] for anorectal manometry by Dr. Brady [...] laxatives and stool softeners; consider referral to [facility] if unable to see local GI anymore ( was told that [facility] would be managing him from [...] evaluate and manage orthostatic symptoms. Recording using [employer] software for draft documentation of the visit was discussed with the patient/authorized treasury representative; all questions welcomed and answered. Patient/authorized treasury representative agreed to proceed JAME Segundo I spent a total of 33 minutes on the date of the service which included preparing to see the patient, [id number] patient care, completing clinical documentation, obtaining and/or reviewing separately obtained history, performing a medically appropriate examination, counseling and educating the patient/family/caregiver, communicating with other HCPs (not separately reported), and care coordination (not separately reported). documented in this encounter [facility] 04-02-2025 Note HNO ID: [id number] Author: LYDIA DRAKE PA-C Service: ? Author Type: Physician [employer] Pasture Farm Worker Type: Progress Notes Filed: 04/02/2025 12:17 Note Text: COLORECTAL SURGERY VIRTUAL VISIT FOLLOW UP 04/02/2025 I have communicated my name and active licensure. The patient's identity and physical location were verified at the time of this visit. Either the patient or their legal treasury representative has been informed of the risks [...] February 28, 2025. He was referred to [facility] for anorectal manometry by Dr. Brady [...] trials of Trulanc (more content not included)... [facility] 03-07-2025 Telephone encounter Note Called patient back. [...] ED with worsening sx. Lydia Drake PA-C [facility] 03-07-2025 Miscellaneous Notes Called patient back. [...] worsening sx. Lydia Drake PA-C Chai Samuel [phone] Patient contacted the office regarding the baclofen that was prescribed to him. He reported that his back is feeling tighter than before and believes that a taking all these different medications may be causing this side effect. Unsure on what he should do. documented in this encounter [facility] 03-07-2025 Telephone encounter Note Chai Samuel [phone] Patient contacted the office regarding the baclofen that was prescribed to him. He reported that his back is feeling tighter than before and believes that a taking all these different medications may be causing this side effect. Unsure on what he should do. [facility] 02-28-2025 Instructions Lydia Drake PA-C - 02/28/2025 1:31 PM EDT We discussed your chronic constipation and pelvic floor dysfunction: - I recommend starting baclofen suppositories, a muscle relaxer, to help with spasms and pain. Use one suppository as needed, up to twice daily. This prescription has been sent to [facility] [place]. - Begin pelvic floor physical therapy to [...] for you. To make an appointment through [facility] call : [phone] If you are not close to a [facility] location, you can visit any one of these sites. Just put your zip code in and Pelvic Floor Physical Therapy places near you will populate. - [email or web address] - [email or web address] - [email or web address] - [email or web address] documented in this encounter [facility] 02-28-2025 History and physical note PELVIC [...] a compounded preparation from a pharmacy in [place], and previously used hydrocortisone. He has not [...] Weak - Relaxation on pushing: Minimal - Podiatric Assistant Present: Yes Podiatric Assistant present: Yes, Arabella Assessment Anorectal Physiology tests [...] which included preparing to see the patient, dvtp-vx-[id number] patient care, completing clinical documentation, obtaining and/or reviewing separately obtained history, performing a medically appropriate examination, counseling and educating the patient/family/caregiver, ordering medications, tests, or procedures, communicating with other HCPs (not separately reported), independently interpreting results (not separately reported), and communicating results to the patient/family/caregiver. Recording using [employer] software for draft documentation of the visit was discussed with the patient/authorized treasury representative; all questions welcomed and answered. Patient/authorized treasury representative agreed to proceed [facility] 02-28-2025 History and physical note PELVIC [...] a compounded preparation from a pharmacy in [place], and previously used hydrocortisone. He has not [...] Weak - Relaxation on pushing: Minimal - Podiatric Assistant Present: Yes Podiatric Assistant present: Yes, Arabella Assessment Anorectal Physiology tests [...] which included preparing to see the patient, [id number]-[id number] patient care, completing clinical documentation, obtaining and/or reviewing separately obtained history, performing a medically appropriate examination, counseling and educating the patient/family/caregiver, ordering medications, tests, or procedures, communicating with other HCPs (not separately reported), independently interpreting results (not separately reported), and communicating results to the patient/family/caregiver. Recording using [employer] software for draft documentation of the visit was discussed with the patient/authorized treasury representative; all questions welcomed and answered. Patient/authorized treasury representative agreed to proceed documented in this encounter [facility] 02-18-2025 Evaluation note Diagnosis Onset Date Resolution Fracture of fifth metatarsal bone of right foot acute February 18, 2025 1:30pm Fracture of fifth metatarsal bone of right foot acute March 13, 2025 3:11pm [facility] Work Phone: 1(546) 948-606106-30-2025 Evaluation note* Diagnosis Onset Date Resolution Status Admit Date Fracture of fifth metatarsal bone of right foot acute February 18 1:30pm Fracture of fifth metatarsal bone of right foot acute March 13 3:11pm Fracture of fifth metatarsal bone of right foot acute April 08, 2025 9:12am Other specified postprocedur al states noneactive April 08 9:12am [facility] Work Phone: 1(736) 104-336406-23-2025 Telephone encounter Note* Telephone Encounter - Chelle Christianson - 02/11/2025 9:38 AM EDT Recevied referral from [facility] fot pt referral for botox injections [facility]06-23-2025 Miscellaneous Notes* Telephone Encounter - Chelle Christianson - 02/11/2025 9:38 AM EDT Recevied referral from [facility] fot pt referral for botox injections [facility] Miscellaneous Notes* Telephone Encounter - Linda Marc CMA - 12/31/2024 9:34 AM EDT I called and left message for pt to call back. Regarding his referral to Gastroenterology. George Alcaraz is retired. * Telephone Encounter - Barbara De La Torre CMA - 12/31/2024 9:34 AM EDT Can we send referral to Dr. Moreno in [place] [facility] Telephone encounter Note* Telephone Encounter - Linda Marc CMA - 12/31/2024 9:34 AM EDT I called and left message for pt to call back. Regarding his referral to Gastroenterology. George Alcaraz is retired. [facility]05-12-2025 Telephone encounter Note* Telephone Encounter - Barbara De La Torre CMA - 12/31/2024 9:34 AM EDT Can we send referral to Dr. Moreno in [place] [facility]04-28-2025 Miscellaneous Notes* Telephone Encounter - Barbara De La Torre CMA - 12/17/2024 3:24 PM EDT Patient called and stated he missed his apt in [place] with jaylyn/ent so they will not see him anymore. Can you refer him to someone else. * Telephone Encounter - Cisco Bonilla DO - 12/17/2024 3:24 PM EDT Okay. I sent another referral this time to a allied health teacher in [place] -Dr. Alcaraz. If he can not make [...] usually routine to do. [facility]04-28-2025 Telephone encounter Note* Telephone Encounter - Barbara De La Torre CMA - 12/17/2024 3:24 PM EDT Patient called and stated he missed his apt in [place] with jaylyn/ent so they will not see him anymore. Can you refer him to someone else. [facility]04-28-2025 Telephone encounter Note* Telephone Encounter - Cisco Bonilla DO - 12/17/2024 3:24 PM EDT Okay. I sent another referral this time to a allied health teacher in [place] -Dr. Alcaraz. If he can not make [...] treatment which is usually routine to do. [facility]04-21-2025 History of Present illness Narrative* Cisco [...] reveal any inflammatory bowel disease. Thegastroenterologist in [place] did not want to see him. He [...] appear clear Nose: Nose normal. Mouth/Throat: Lips: [place]. Mouth: Mucous membranes are moist. Dentition: [...] and irritable bowel syndrome. documented in [facility]03-14-[facility]25 History of Present illness Narrative* Cisco Bonilla DO - 11/02/2024 1:58 PM EDT FORM FOR FUR TAILOR FILLED OUT documented in [facility] encounterSam[facility]02-05-2025 Miscellaneous Notes* Telephone Encounter - Marisa Reinoso - 09/26/2024 2:19 PM EST New Patient NS 09/26/2024 * Telephone Encounter - Suik Islas RN - 09/26/2024 2:19 PM EST Discharge entered documented in [facility] encounterSam[facility]02-05-2025 Telephone encounter Note* Telephone Encounter - Marisa Reinoso - 09/26/2024 2:19 PM EST New Patient NS 09/26/2024 [facility]02-05-2025 Telephone encounter Note* Telephone Encounter - Suki Islas RN - 09/26/2024 2:19 PM EST Discharge entered [facility]01-22-2025 Miscellaneous Notes* Telephone Encounter - Betty [...] Send a referral to GI specialist at [facility] documented in this encounterSam[facility]01-22-2025 Telephone encounter Note* Telephone Encounter - Betty Wild - 09/12/2024 2:21 PM EST [facility] office is refusing to see him since [...] why we referred him to a specialist [facility] [id number] Telephone encounter Note* Telephone Encounter - Betty Wild - 09/12/2024 2:21 PM EST Can we get this as an urgent referral [facility] [id number] Telephone encounter Note* Telephone Encounter - Cisco Bonilla DO - 09/12/2024 2:21 PM EST Send a referral to GI specialist at [facility] [id number] Miscellaneous Notes* Telephone Encounter - Bettygeorge Wild - 09/12/2024 1:47 PM EST Patient called, metamucil is not covered by insurance but they will cover benifiber 240g [facility] [place] documented in [facility] encounterSam[facility]01-22-2025 Telephone encounter Note* Telephone Encounter - Betty Wild - 09/12/2024 1:47 PM EST Patient called, metamucil is not covered by insurance but they will cover benifiber 240g [facility] [place] [facility] [id number] History of Present illness Narrative* Cisco Bonilla [...] have an appointment coming up with a allied health teacher in September. He had to cancel [...] would rather have Metamucil. He called the allied health teacher office and they suggested a cleaned [...] Exam Vitals reviewed. Exam conducted with a clinical informatics director present (Leilani Han MS 3). Constitutional: General: [...] mouth in the morning. documented in this encounterSam[facility] Hospital08-14-2024 Miscellaneous Notes* Telephone Encounter - Betty Wild - 04/04/2024 10:24 AM EDT ----- Message from Dr. Cisco Bonilla DO sent at 03/15/2024 7:03 PM EDT ----- Regarding: GI/BP recheck Please set up * Telephone Encounter - Betty Wild - 04/04/2024 10:24 AM EDT Mailbox full * Telephone Encounter - Betty Wild - 04/04/2024 10:24 AM EDT Scheduled documented in this encounterSam[facility]08-14-2024 Telephone encounter Note* Telephone Encounter - Betty Wild - 04/04/2024 10:24 AM EDT ----- Message from Dr. Cisco Bonilla DO sent at 03/15/2024 7:03 PM EDT ----- Regarding: GI/BP recheck Please set up [facility]-14-[facility] Telephone encounter Note* Telephone Encounter - Betty Saldanagstock - 04/04/2024 10:24 AM EDT Mailbox full [facility]08-14-[facility]24 Telephone encounter Note* Telephone Encounter - Betty Leseliseokaterine - 04/04/2024 10:24 AM EDT Scheduled [facility]07-25-[facility] History of Present illness Narrative* Cisco [...] was getting liquidy stools-6 and 7 on [place] stool scale. He used fiber supplement in [...] mostly liquidy now. He has been to [facility] 3 times. He was given something for [...] needed for pain (cramping). documented in this encounterSam[facility] Hospital06-24-2024 Miscellaneous Notes* Telephone Encounter - Betty [...] GoLYTELY sent to pharmacy documented in this encounterSam[facility]06-24-2024 Telephone encounter Note* Telephone Encounter - Betty Wild - 02/13/2024 12:02 PM EDT Patient said susame is 130 dollars, is there something else he can try or a coupon to use [facility]06-24-2024 Telephone encounter Note* Telephone Encounter - Linda Marc CMA - 02/13/2024 12:02 PM EDT Pt has medicaid My Bad Please SEND in the SUPREP. . [facility]06-24-2024 Telephone encounter Note* Telephone Encounter - Jennyfer Augustin DO - 02/13/2024 12:02 PM EDT Message noted. The only prep that is covered is the old fashioned Golytely prep [facility]06-24-2024 Telephone encounter Note* Telephone Encounter - Gloria Rodriguez CMA - 02/13/2024 12:02 PM EDT He is Medicaid so whatever his insurance covers [facility]06-24-2024 Telephone encounter Note* Telephone Encounter - Jennyfer Augustin DO - 02/13/2024 12:02 PM EDT Message noted. Rx for GoLYTELY sent to pharmacy [facility]06-11-2024 Miscellaneous Notes* Telephone Encounter - Barbara De [...] EDT Left message via documented in this encounterSamaritan Hospital06-11-2024 Telephone encounter Note* Telephone Encounter - Barbara De La Torre CMA - 01/31/2024 3:09 PM EDT Patient called and was in the ER for Urinary re tension. His bowel movements ar still not good. Since I can not get him in for an ER follow up soon what do you suggest he do? He does see urology on [facility]06-11-2024 Telephone encounter Note* Telephone Encounter - Cisco Bonilla DO - 01/31/2024 3:09 PM EDT He can use MiraLax 17 g in 8 oz of water daily [facility]06-11-2024 Telephone encounter Note* Telephone Encounter - Barbara De La Torre CMA - 01/31/2024 3:09 PM EDT Left message via [facility]04-19-[facility] History of Present illness Narrative* SYLVESTER Levin - 12/09/2023 9:00 AM EDT [address] [facility] [id number] Patient: Chai Arnold Date of : 1970 [...] softeners pencilthin like a 4. On the [place] stool scale and he has tried Metamucil and MiraLax. He denies any hemorrhoids or blood in his stool. His last colonoscopy was 4 years ago that showed polyps and diverticulosis and he knows he is due for another colonoscopy next year. Patient has been struggling with weaning off his Xanax. 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 Past Medical History: Diagnosis Date Anxiety Depression Past Surgical History: Procedure Laterality Date APPENDECTOMY COLONOSCOPY N/A 10/17/2019 Performed by Jennyfer Augustin DO at [facility] DECOMPRESSION FASCIOTOMY LEG 12/24/2015 Current Outpatient [...] whether esophagitis present 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 ([facility]) Other orders - omeprazole (PriLOSEC) 20 [...] office. Resources such as [facility] in [place] were given. It was also recommended that he apply at [facility] for primary care services and psychiatric [...] LEVIN APRN-CNP 12/09/23 1230 documented in this encounterOhioHealth O'[facility]len[facility] HospitalSkyPower [facility] [id number] Evaluation note* Encounter Date Diagnosis Assessment Notes [...] [facility] Care At Home document. [facility] Other 12-21-2021 Evaluation note* Encounter Date Diagnosis [...] [facility] Care At Home document. GTRAN Other Evaluation + Plan note Future Appointments Appointment Date:04/03/2024 01:00:00 PM Scheduled Provider:JOSEPH Allen APRN, Didi Martin Location:[facility] Appointment Type:URO Office Visit [facility] Evaluation + Plan note Future Appointments Appointment Date:04/11/2025 10:45:00 AM Scheduled Provider:Vivian Brady MD Location[facility] App[facility] Type:[facility] Up [facility] evaluation noteNo assessment information available [facility] Work Phone: evaluation note* Diagnosis Irritable bowel syndrome with both constipation and diarrhea- Primary Essential hypertension, benign Anxiety Anxiety state, unspecified Encounter for screening for malignant neoplasm of prostate documented in this encounter [facility]* Diagnosis Irritable bowel syndrome with both constipation and diarrhea- Primary documented in this encounter [facility]* Diagnosis Irritable bowel syndrome with constipation- Primary Irritable bowel syndrome Gastroesophageal reflux disease, unspecified whether esophagitis present 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 ([facility]) [facility] Diagnosis Change in bowel habits- Primary Other symptoms involving digestive system Polyp of colon, unspecified part of colon, unspecified type [facility] this [facility]* Diagnosis Irritable bowel syndrome with both constipation and diarrhea- Primary Umbilical hernia without obstruction and without gangrene Incisional hernia, without obstruction or gangrene Anal fissure documented in this [facility]* Diagnosis Well adult exam- Primary Routine general medical examination at a health care facility Anxiety Anxiety state, unspecified Overweight Iron overload Disorders of iron metabolism Encounter for screening for malignant neoplasm of prostate Ex-smoker Personal history of tobacco use, presenting hazards to health Hypogonadism in male Severe episode of recurrent major depressive disorder, without psychotic features ([facility]) Irritable bowel syndrome with both constipation and diarrhea [facility]* Diagnosis Anal fissure- Primary [facility] Diagnosis Irritable bowel syndrome with both constipation and diarrhea- Primary [facility]* Diagnosis Chronic idiopathic constipation- Primary Unspecified constipation Hepatitis C virus infection without hepatic coma, unspecified chronicity documented [facility] this encounter [facility]* Diagnosis 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 Outlet dysfunction constipation Stress-related physiological response affecting medical condition Psychic factors associated with diseases classified elsewhere [facility]* Diagnosis Onset Date Resolution Status Admit Date Fracture of fifth metatarsal bone of right foot acute February 18, 2025 1:30pm [facility] Work Phone: Evaluation note* Diagnosis Pelvic floor dysfunction Pelvic muscle wasting Pelvic floor dysfunction- Primary Pelvic muscle wasting Rectal spasm Anal spasm Constipation, unspecified constipation type documented in this encounter [facility]* Diagnosis Pelvic floor dysfunction- Primary Pelvic muscle wasting Rectal spasm Anal spasm Constipation, unspecified constipation type documented in this encounter [facility]* Diagnosis Anxiety Anxiety state, unspecified [facility]* Diagnosis Constipation, unspecified constipation type- Primary Rectal spasm Anal spasm Pelvic floor dysfunction Pelvic muscle wasting Anxiety Anxiety state, unspecified Distressed about housing issues Other specified housing or economic circumstances Orthostatic dizziness documented in this encounter [facility] note* Diagnosis Rectal spasm- Primary Anal spasm Constipation, unspecified constipation type Pelvic floor dysfunction Pelvic muscle wasting Anxiety Anxiety state, unspecified Chronic abdominal pain Abdominal pain, unspecified site Chronic rectal pain Anal or rectal pain documented in this encounter [facility] general Narrative - Reported* Type Description Date Medical History insomnia Medical History anxiety Medical History HTN Surgical History appendix removed Surgical History compartment syndrome left hand 2016 Hospitalization History see surgical hx [facility]TRAN Other Hospital course Narrative No data available for this section [facility] Hospital Discharge instructions Additional Instructions Wear leg bag with [place] catheter [facility]-up with [facility]rology [facility] are [facility] Hospital Discharge instructions No data available for this section [facility] Hospital Discharge instructions Additional Instructions [...] wearing your boot. You may take NSAIDs/Tylenol [id number] as indicated on the bottle. You should [...] be scheduled with Dr. Avina's office at [facility]. At your follow-up we will remove your splint and sutures. Please call to confirm your follow-up appointment. Dr. Ehsan Avina [facility] [address] [place] [address] [facility] Work Phone: Instructions* Attachments The following attachments cannot be sent through Care Everywhere. * IBS Diet (Kazakh) documented in this encounterProKeeps[facility] SystemInstructionsNot on file documented in this encounterProOhio[facility] HospitalInsignia Technologies SystemInstructionsNot on file documented in this encounterProOhiohealth [facility] HospitalSkyPower Health SystemInstructionsNot on file documented in this encounterProKeepskor Health SystemInstructionsNot on file documented in this encounterProKeepskor Health SystemInstructionsNot on file documented in this encounterProOhiohealth [facility] HospitalSkyPower Health SystemInstructionsNot on file documented in this encounterProOhiohealth Mansfield HospitalInsignia Technologies SystemInstructionsNot on file documented in this encounterProOhiohealth Mans[facility] HospitalSkyPower Health SystemInstructionsNot on file documented in this encounterProOhiohealth Mans[facility] HospitalSkyPower Health SystemInstructionsNot on file documented in this encounterProOhiohealth Mansfield HospitalInsignia Technologies SystemInstructionsNot on file documented in this encounterProMedica Health SystemInstructionsNot on file documented in this encounterProMedica Health SystemInstructionsNot on file documented in this encounterProMedica Health SystemInstructionsNot on file documented in this encounterProOhiohealth Mansfield Hospitalca Health SystemProgress note No data available for this section [facility] Reason for referral (narrative)* Medication Prior Authorization - Pending Review Specialty Diagnoses / Procedures Referred By Contac t Referred To Contact Cisco Bonilla DO [address] [facility], [facility] [place] [address] Phone: tel: fax: Referral ID Status Reason Start Date Expiration Date V isits Requested Visits Authorized [id number] Pending Review 1 1 [facility] (n[facility]ative)* Medication Prior Authorization - Pending Review Specialty Diagnoses / Procedures Referred By Contac t Referred To Contact Cisco Bonilla DO [address] [facility], [facility] [place] [address] Phone: tel: fax: Referral ID Status Reason Start Date Expiration Date V isits Requested Visits Authorized [id number] Pending Review 1 1 [facility] System[facility] for referral (narrative)* Medication Prior Authorization - Pending Review Specialty Diagnoses / Procedures Referred By Contac t Referred To Contact Cisco Bonilla DO [address] [facility], [facility] [place] [address] Phone: tel: fax: Referral ID Status Reason Start Date Expiration Date V isits Requested Visits Authorized [id number] Pending Review 1 1 [facility] SystemReason for referral (narrative)No reason for referral information availableOhio [facility] Work Phone: Summary Purpose Family History [...] To Contact Cisco Bonilla, [address] [facility], [facility] [place] [address] Referral ID Status Reason Start Date Expiration Date V isits Requested Visits Authorized [id number] Pending Review 03/14/2024 03/14/2025 1 1 Specialty Diagnoses / Procedures Referred By Contac t Referred To Contact Diagnoses Change in bowel habits Polyp of colon, unspecified part of colon, unspecified type Procedures Colonoscopy Cisco Bonilla, DO [address] [place] [address] Referral ID Status Reason Start Date Expiration Date V isits Requested Visits Authorized [id number] Pending Review 02/05/2024 02/04/2025 1 1 Additional Source Comments (unrecognized sect ion and content) No Status Records FoundNo Status Records FoundNo Status Records FoundNo Status Records FoundNo Status Records FoundNo Status Records FoundNo Status Records FoundNo Status Records Found INFORMATION SOURCE (unrecogn ized section and content) DATE CREATED AUTHOR 02/14/2018 [facility] DATE CREATED AUTHOR AUTHOR'S ORGANIZ ATION 03/29/2022 [facility] DATE CREATED AUTHOR AUTHOR'S ORGANIZ ATION 05/18/2024 [facility] DATE CREATED AUTHOR AUTHOR'S ORGANIZ ATION 12/10/2024 [facility] DATE CREATED AUTHOR AUTHOR'S ORGANIZ ATION 12/11/2024 [facility] DATE CREATED AUTHOR AUTHOR'S ORGANIZ ATION 03/31/2025 [facility] DATE CREATED AUTHOR AUTHOR'S ORGANIZ ATION 04/03/2025 [facility] DATE CREATED AUTHOR AUTHOR'S ORGANIZ ATION 04/25/2025 [facility] REASON FOR VISIT (unrecogniz ed section and [...] INSTITUTE Diagnoses Pelvic floor dysfunction Procedures ADULT [place] ANORECTAL MANOMETRY ANORECTAL MANOMETRY Violette Maurer APRN.CRIMINOLOGY PROFESSOR [address] [place] [address] Phone: tel: fax: [facility] [address] [place] [address] Referral ID Status Reason Start Date Expiration Date V isits Requested Visits Authorized [id number] Closed Auto-Generate d Referral 02/21/2025 08/21/2025 1 1 Reason Comments New Patient Pelvic floor dysfunc tion Specialty Diagnoses / Procedures Referred By Contac t Referred To Contact [facility] Diagnoses Pelvic floor dysfunction Procedures ADULT [place] ANORECTAL MANOMETRY ANORECTAL MANOMETRY Violette Maurer APRN.CRIMINOLOGY PROFESSOR [address] [place] [address] Phone: tel: fax: [facility] [address] [place] [address] Referral ID Status Reason Start Date Expiration Date V isits Requested Visits Authorized [id number] Closed Auto-Generate d Referral 02/21/2025 08/21/2025 1 [...] March 03, 2024 End: March 03, 2024 Maintenance Supervisor Mechanical Relationship Specialty Start Date End Date Cisco Bonilla DO [address], [facility] [place] [address] PCP - General Family Medicine 12/19/19 Maintenance Supervisor Mechanical Relationship Specialty Start Date End Date Cisco Bonilla DO [address], [facility] [place] [address] PCP - General Family Medicine 12/19/19 Maintenance Supervisor Mechanical Relationship Specialty Start Date End Date Cisco Bonilla DO [address], [facility] [place] [place] [address] PCP - General Family Medicine 12/19/19 Maintenance Supervisor Mechanical Relationship Specialty Start Date End Date Cisco Bonilla DO [address], [place] [address] PCP - General Family Medicine 12/19/19 Maintenance Supervisor Mechanical Relationship Specialty Start Date End Date Cisco Bonilla DO [address], [place] [address] PCP - General Family Medicine 12/19/19 Maintenance Supervisor Mechanical Relationship Specialty Start Date End Date Cisco Bonilla DO [address], [place] [address] PCP - General Family Medicine 12/19/19 Maintenance Supervisor Mechanical Relationship Specialty Start Date End Date Cisco Bonilla DO [address], [place] [address] PCP - General Family Medicine 12/19/19 Maintenance Supervisor Mechanical Relationship Specialty Start Date End Date Cisco Bonilla DO [address], [place] [address] PCP - General Family Medicine 12/19/19 Maintenance Supervisor Mechanical Relationship Specialty Start Date End Date Cisco Bonilla DO [address] [place] [address] PCP - General Family Medicine 12/19/19 Maintenance Supervisor Mechanical Relationship Specialty Start Date End Date Cisco Bonilla DO [address] [place] [address] PCP - General Family Medicine 12/19/19 Maintenance Supervisor Mechanical Relationship Specialty Start Date End Date Carlos AlbertolindenCisco cao DO [address] [place] [address] PCP - General Family Medicine 12/19/19 Maintenance Supervisor Mechanical Relationship Specialty Start Date End Date Cisco Bonilla DO [address] [place] [address] PCP - General Family Medicine 12/19/19 Maintenance Supervisor Mechanical Relationship Specialty Start Date End Date Carlos AlbertolindenCisco cao DO [address] [place] [address] PCP - General Family Medicine 12/19/19 Maintenance Supervisor Mechanical Relationship Specialty Start Date End Date Carlos AlbertolindenCisco cao DO [address] [place] [address] PCP - General Family Medicine 12/19/19 Maintenance Supervisor Mechanical Relationship Specialty Start Date End Date Cisco Bonilla DO [address] [place] [address] PCP - General Family Medicine 12/19/19 Maintenance Supervisor Mechanical Relationship Specialty Start Date End Date Cisco Bonilla DO [address] [place] [address] PCP - General Family Medicine 12/19/19 Maintenance Supervisor Mechanical Relationship Specialty Start Date End Date Carlos AlbertolindneCisco cao DO [address] [place] [address] PCP - General Family Medicine 12/19/19 Maintenance Supervisor Mechanical Relationship Specialty Start Date End Date Cisco Bonilla DO [address], [place] [address] PCP - General Family Medicine 12/19/19 Maintenance Supervisor Mechanical Relationship Specialty Start Date End Date Tyson Tolliver MD PCP - General Family Medicine 11/11/15 Vivian Brady MD [address] [place] [address] Gastroenterology 01/16/25 Maintenance Supervisor Mechanical Relationship Specialty Start Date End Date Cisco Bonilla DO [address], [facility] [place] [address] PCP - General Family Medicine 12/19/19 Maintenance Supervisor Mechanical Relationship Specialty Start Date End Date Tyson Tolliver MD PCP - General Family Medicine 11/11/15 Vivian Brady MD [address] [address] Gastroenterology 01/16/25 Team Status: Inactive Member Role Status Dates Cisco Bonilla DO Primary Care Provider Active Start: February 18, 2025 End: February 18, 2025 Ehsan Avina DO Attending Provider Active S tart: February 18, 2025 End: February 18, 2025 Maintenance Supervisor Mechanical Relationship Specialty Start Date End Date Tyson Tolliver MD PCP - General Family Medicine 11/11/15 Vivian Brady MD [address] [address] Gastroenterology 01/16/25 Maintenance Supervisor Mechanical Relationship Specialty Start Date End Date Tyson Tolliver MD PCP - General Family Medicine 11/11/15 Vivian Brady MD [address] [address] Gastroenterology 01/16/25 Maintenance Supervisor Mechanical Relationship Specialty Start Date End Date Tyson Tolliver MD PCP - General Family Medicine 11/11/15 Vivian Brady MD [address] [address] Gastroenterology 01/16/25 Maintenance Supervisor Mechanical Relationship Specialty Start Date End Date Tyson Tolliver MD PCP - General Family Medicine 11/11/15 Vivian Brady MD [address] [address] Gastroenterology 01/16/25 Team Status: Active Member Role [...] March 19, 2025 End: March 19, 2025 Maintenance Supervisor Mechanical Relationship Specialty Start Date End Date Cisco Bonilla DO [address] [facility], [facility] [place] [address] PCP - General Family Medicine 12/19/19 Maintenance Supervisor Mechanical Relationship Specialty Start Date End Date Tyson Tolliver MD PCP - General Family Medicine 11/11/15 Vivian Brady MD [address] [address] Gastroenterology 01/16/25 Maintenance Supervisor Mechanical Relationship Specialty Start Date End Date Tyson Tolliver MD PCP - General Family Medicine 11/11/15 Vivian Brady MD [address] [facility] [address] [address] Gastroenterology 01/16/25 Maintenance Supervisor Mechanical Relationship Specialty Start Date End Date Tyson Tolliver MD PCP - General Family Medicine 11/11/15 Vivian Brady MD [address] [place] [id number] Gastroenterology 01/16/25 Team Status: Inactive Member Role [...] or prosecute any alcohol or drug abuse patient.[facility] HospitalIn the event this information is protected by the Federal Confidentiality of Alcohol and Drug Abuse Patient Records regulations: The Federal rules restrict any use of the information to criminally investigate or prosecute any alcohol or drug abuse patient.[facility] HospitalIn the event this information is protected by the Federal Confidentiality of Alcohol and Drug Abuse Patient Records regulations: The Federal rules restrict any use of the information to criminally investigate or prosecute any alcohol or drug abuse patient.[facility] HospitalIn the event this information is protected by the Federal Confidentiality of Alcohol and Drug Abuse Patient Records regulations: The Federal rules restrict any use of the information to criminally investigate or prosecute any alcohol or drug abuse patient.[facility] HospitalIn the event this information is protected by the Federal Confidentiality of Alcohol and Drug Abuse Patient Records regulations: The Federal rules restrict any use of the information to criminally investigate or prosecute any alcohol or drug abuse patient.[facility] HospitalIn the event this information is protected by the Federal Confidentiality of Alcohol and Drug Abuse Patient Records regulations: The Federal rules restrict any use of the information to criminally investigate or prosecute any alcohol or drug abuse patient.[facility] HospitalIn the event this information is protected by the Federal Confidentiality of Alcohol and Drug Abuse Patient Records regulations: The Federal rules restrict any use of the information to criminally investigate or prosecute any alcohol or drug abuse patient.[facility] HospitalIn the event this information is protected by the Federal Confidentiality of Alcohol and Drug Abuse Patient Records regulations: The Federal rules restrict any use of the information to criminally investigate or prosecute any alcohol or drug abuse patient.[facility] HospitalIn the event this information is protected by the Federal Confidentiality of Alcohol and Drug Abuse Patient Records regulations: The Federal rules restrict any use of the information to criminally investigate or prosecute any alcohol or drug abuse patient.[facility] FOR RECORDS PERTAINING TO PATIENTS WHO [...] BE BASED ON THE PRIMARY CLINICAL RECORDS. [employer] [facility]. provides no warranty or guarantee of the accuracy or completeness of information in this document.
--- NOTE | 2025-05-08 06:00 | ED.MALEGU1 ---
HPI - Male Genitourinary General Chief complaint: Urogenital-Male Stated complaint: RECTAL PAIN DIZZINESS Time Seen by Provider: 05/08/25 05:48 Source: patient Mode of arrival: walk-in History of Present Illness HPI Narrative: This 54-year-old male who was seen earlier on this shift and had urinary retention presents for evaluation of ongoing urinary retention. He was straight cathed in the emergency department after he urinated and had a lot of ongoing rectal pressure which is not new for him. He was given a dose of Flomax and discharged home. He states he has been trying to urinate since getting home but could not pass any urine. Related Data Previous Rx's ?Medication ?Instructions ?Recorded ondansetron 4 mg disintegrating 4 mg PO Q6H PRN nausea and 05/06/24 tablet vomiting #12 tabs dicyclomine 20 mg tablet 20 mg PO QID PRN abdominal pain 09/05/24 #12 tabs hydrocodone 5 mg-acetaminophen 325 1 tab PO Q6H PRN pain 3 days #12 02/14/25 mg tablet tabs ciprofloxacin HCl 500 mg tablet 500 mg PO Q12H #20 tabs 05/07/25 (Cipro) hydrocodone 5 mg-acetaminophen 325 1 tab PO Q6H PRN pain 5 days #20 05/07/25 mg tablet tabs metronidazole 500 mg tablet 500 mg PO TID #30 tabs 05/07/25 ondansetron 4 mg disintegrating 4 mg PO Q6H PRN nausea and 05/07/25 tablet vomiting #20 tabs Allergies Allergy/AdvReac Type Severity Reaction Status Date / Time No Known Drug Allergies Allergy Verified 05/07/25 01:56 Review of Systems ROS Status of ROS 10 or more systems reviewed and unremarkable except as noted in history and below [facility] Social History Little interest or pleasure in doing things: not at all Feeling down, depressed, or hopeless: not at all Exam Narrative Exam Narrative: Vital signs and Nursing Notes reviewed: Patient is afebrile with an elevated pulse at 98, blood pressure is elevated 151/96, he is not hypoxic with pulse ox of 99% on room air General: Awake, alert, oriented, extremely anxious and hyperventilating Chest: Lungs are clear to auscultation with good air entry, there is no wheezing rhonchi or rales appreciated no accessory muscle use, patient is speaking in complete sentences-no chest wall tenderness to palpation CVS: Regular rate and rhythm S1-S2, no murmurs rubs or gallops, pulses are brisk and equal bilaterally ABD: Soft, nondistended, nontender, no rebound guarding or rigidity, bowel sounds are normal, no pulsatile masses appreciated Extremities: Moving all extremities, no lower extremity tenderness or swelling noted, negative Homans' sign, pulses are brisk and equal bilaterally Skin: Normal in appearance without rash,pallor, petechiae or purpura Neuro: No focal deficits Constitutional Vital Signs, click to edit/add: Last Vital Signs Temp 98.3 F 05/08/25 05:33 Pulse 98 H 05/08/25 05:33 Resp 22 H 05/08/25 05:33 BP 151/96 H 05/08/25 05:33 Pulse Ox 99 05/08/25 05:33 O2 Del Method Room Air 05/08/25 05:33 Course Vital Signs Vital signs: Vital Signs Temperature 98.3 F 05/08/25 05:33 Pulse Rate 98 H 05/08/25 05:33 Respiratory Rate 22 H 05/08/25 05:33 Blood Pressure 151/96 H 05/08/25 05:33 Pulse Oximetry 99 05/08/25 05:33 Oxygen Delivery Method Room Air 05/08/25 05:33 Temperature 98.3 F 05/08/25 05:33 Pulse Rate 98 H 05/08/25 05:33 Respiratory Rate 22 H 05/08/25 05:33 Blood Pressure 151/96 H 05/08/25 05:33 Pulse Oximetry 99 05/08/25 05:33 Oxygen Delivery Method Room Air 05/08/25 05:33 MDM - Male Genitourinary MDM Narrative Medical decision making narrative: This 54-year-old male who was seen earlier in the shift for rectal pain and pressure and was seen yesterday and diagnosed with acute diverticulitis who was discharged home with prescriptions for Cipro, Flagyl, [place] and Zofran presents for evaluation of ongoing rectal pain and inability to urinate. He was noted to have 400 mL of retained urine in his bladder after voiding earlier in the evening. He was straight cathed as he has never had any issues with urinating in the past. He was given a dose of Flomax but after going home was still unable to urinate. He presents extremely anxious and hyperventilating. A [place] catheter was placed by the nursing staff. His urine had been tested earlier on this shift and was negative for infection. He will be discharged home with a leg bag and referral to outpatient urology. Discharge Plan Discharge Chief Complaint: Urogenital-Male Clinical Impression: Acute urinary retention Patient Disposition: Home, Self-Care Time of Disposition Decision: 06:25 Condition: Good Prescriptions / Home Meds: No Action dicyclomine 20 mg tablet 20 mg PO QID PRN (Reason: abdominal pain) Qty: 12 0RF hydrocodone-acetaminophen 5-325 mg tablet 1 tab PO Q6H PRN (Reason: pain) 5 Days Qty: 20 0RF metronidazole 500 mg tablet 500 mg PO TID Qty: 30 0RF ciprofloxacin HCl [Cipro] 500 mg tablet 500 mg PO Q12H Qty: 20 0RF ondansetron 4 mg tablet,disintegrating 4 mg PO Q6H PRN (Reason: nausea and vomiting) Qty: 20 0RF ondansetron 4 mg tablet,disintegrating 4 mg PO Q6H PRN (Reason: nausea and vomiting) Qty: 12 0RF hydrocodone-acetaminophen 5-325 mg tablet 1 tab PO Q6H PRN (Reason: pain) 3 Days Qty: 12 0RF Rx Instructions: M79.671 Print Language: Telugu Instructions: Urinary Retention in Men (ED), [place] Catheter Placement and Care (ED) Referrals: MELY BONILLA [Primary Care Provider, Family Practice] - 1 week Lilian Barajas MD [Physician, Urology] - 1 week
[2025-05-08] MEDS: DIAZEPAM 5 MG TABLET PO (06:48)
== END 2025-05-08 06:53 | disposition home or self-care (01) ==
PROVIDERS: Emergency Provider Emergency Medicine; PCP Family Medicine
DX: R33.9 Retention of urine, unspecified (principal)
CPT/HCPCS: 51702; 99284

== ENCOUNTER 2025-05-08 20:05 | Emergency (ER) | payer OTHER, SELFPAY ==
[2025-05-08 20:12] VITALS: BP 157/95; PULSE 102; TEMP 36.8; O2SAT 99
--- OUTSIDE RECORDS SUMMARY | 2025-05-08 20:18 | XMS_ITS | CCD ---
Author Organization [facility] Care Team Providers Care Animal Pathologist Name Role Phone OSINOWO, OSIYEMI Unavailable Unavailable [...] Primary Care Physician JAME De Emergency Provider [phone] JENNYFER AUGUSTIN Admitting Unavailable JENNYFER AUGUSTIN Attending Unavailable CISCO BONILLA Primary Care Unavailable JENNYFER AUGUSTIN Attending Unavailable JENNYFER AUGUSTIN Referring Unavailable CISCO BONILLA Primary Care Unavailable CHAD, CISCO Thomason Primary Care Unavailable JEY NORRIS Attending Unavailable Carlos Albertolong Cisco MCLAUGHLIN Primary Care Provider Cisco Bonilla DO Primary Care Provider [phone] CISCO BONILLA Attending Unavailable CISCO BONILLA Referring [...] Provider Ehsan Avina DO A Other Provider [phone] Kailyn, Ehsan A Admitting Unavailable Kailyn, Ehsan [...] Propensity to adverse reactions (disorder) [facility] Repository Medications Current Medications Medication [...] constipation, # 10 supp, Refills(s) 0, Pharmacy: [facility], 173, cm, 01/24/25 10:35:00 EDT, Height/Length [...] Daily, # 30 tab(s), Refills(s) 4, Pharmacy: [facility], 173, cm, 01/24/25 10:35:00 EDT, Height/Length Dosing, 86.3, kg, 01/24/25 10:35:00 EDT, Weight Dosing Start Date: 01/24/25 Status: Ordered Quantity: 30.0 Unit: tab(s) Repeat number: 5 Indications: Other specified disorders of muscle; Outlet dysfunction constipation; Constipation, unspecified; Psychological and behavioral factors associated with disorders or diseases classified elsewhere; Other psychoactive substance dependence, uncomplicated; Abdominal distension (gaseous); polyethylene glycol 3350 65228 mg powder for oral solution (20 sources) [...] bedtime) for constipation, 100 tab(s), Refill(s) 0, [facility], 173, cm, 01/24/25 10:35:00 EDT, Height/Length Dosing, 86.3, kg, 01/24/25 10:35:00 EDT, Weight Dosing Start Date: 04/19/25 Status: Ordered Quantity: 100.0 Unit: tab(s) Repeat number: 1 Start: 01-09-2025 Senna 8.6 mg o ral tablet 17.2 mg, 2 tab(s), Oral, Once a day (at bedtime) for constipation, 100 tab(s), Refill(s) 3, [facility], 173, cm, 01/09/25 12:52:00 EDT, [...] 2025 March 19, 2025 11:33am peg 3350-sod sulf,aogr-rbd-zle 178.7-7.3-0.5 gram recon soln (1 source) Start: 02-13-2024 End: 02-14-2024 peg 3350-sod sulf,vnly-ziv-bmw 178.7-7.3-0.5 gram recon soln Indications: Change in [...] RT 2Von 03-20-2025 XR foot RT 2V [facility] [place] [address] XRay Report Signed Patient: Chai Arnold MR#: [id number] 2 : 1970 Acct:[id number] Age/Sex: 54 / M ADM Date: 03/19/25 Loc: [place] Room: Type: [facility] Attending Dr: Ehsan Avina DO Copies [...] Lisa M.D. 03/20/2025 8:49 AM Dictation Location: [place] [address] Transcribed By: [facility] 03/20/25 0849 Dictated By: Dante Lisa II, MD 03/20/25 0849 Signed By: 03/20/25 0849 Normal [facility] Amphetamine Screen Ql (U)Ord ered By: Nirmal Bruno on 03-19-2025 Amphetamines Ql (U) Negative Negative [facility] Barbiturates [Presence] in U rine by Screen methodOrdered By: Nirmal Bruno on 03-19-2025 Barbiturates Screen Ql (U) Negative Negative [facility] Benzodiazepines Screen Ql (U )Ordered By: Nirmal Bruno on 03-19-2025 Benzodiazepines Ql (U) Positive High Negative [facility] Benzoylecgonine [Presence] i n Urine by Screen methodOrdered By: Nirmal Bruno on 03-19-2025 Benzoylecgonine Screen Ql (U) Negative Negative [facility] Cannabinoids [Presence] in U rine by Screen methodOrdered By: Nirmal Bruno on 03-19-2025 Cannabinoids Screen Ql (U) Negative Negative [facility] Comment on above: These are unconfirme d results and should not be used for legal purposes. Drug Cut-Off Concentration: AMPH 1000 ng/mL MAXIMILIAN 200 ng/mL NORA 200 ng/mL COCM 300 ng/mL OP 300 ng/mL PCP 25 ng/mL THC 20 ng/mL Drug Screen,Urineon 03-19-20 25 Amphetamine Screen,Urine Negative Normal Negative [facility] Comment on above: Performed By: #### U RDS #### [address] Barbiturate Screen,Urine Negative Normal Negative [facility] Comment on above: Performed By: #### U RDS #### [place] [address] [place] Benzodiazepines Screen,Urine Positive Normal Negative [facility] Comment on above: Performed By: #### U RDS #### [address] Cannabinoid Screen,Urine Negative Normal Negative [facility] Comment on above: Result Comment: Thes e are unconfirmed results and should not be used for legal purposes. Drug Cut-Off Concentration: AMPH 1000 ng/mL MAXIMILIAN 200 ng/mL NOAR 200 ng/mL COCM 300 ng/mL OP 300 ng/mL PCP 25 ng/mL THC 20 ng/mL PERFORMED BY: [place] [address] PATHOLOGIST VACUUM DRUM DRIER OPERATOR BROWN OLIVIER M.D. Performed By: #### U RDS #### [place] [address] [place] Cocaine Screen,Urine Negative Normal Negative [facility] Comment on above: Performed By: #### U RDS #### [facility] [address] Opiate Screen,Urine Positive Normal Negative [facility] Comment on above: Performed By: #### U RDS #### [facility] [address] Phencyclidine Screen,Urine Negative Normal Negative [facility] Comment on above: Performed By: #### U RDS #### [address] Opiates [Presence] in Urine by Screen methodOrdered By: Nirmal Bruno on 03-19-2025 Opiates Screen Ql (U) Positive High Negative [facility] Phencyclidine Screen Ql (U)O rdered By: Nirmal Bruno on 03-19-2025 Phencyclidine Ql (U) Negative Negative [facility] Alanine aminotransferase [En zymatic activity/volume] in Serum or PlasmaOrdered By: Ehsan Avina on 03-18-2025 ALT [Catalytic activity/Vol] 15 U/L [facility] Comment on above: Performed By: #### C MP wRFX A1C, CBC #### [address] Albumin [Mass/volume] in Ser um or Plasma by Bromocresol green (BCG) dye binding methoOrdered By: Ehsan Avina on 03-18-2025 Albumin BCG dye [Mass/Vol] 4.2 g/dL 3.5-5.7 [facility] Alkaline phosphatase [Enzyma tic activity/volume] in Serum or PlasmaOrdered By: Ehsan Avina on 03-18-2025 ALP [Catalytic activity/Vol] 116 U/L High 34-104 [facility] Comment on above: Result Comment: PERF ORMED BY: [place] [address] PATHOLOGIST V[employer]UUM DRUM DRIER OPERATOR BROWN OLIVIER M.D. Performed By: #### C MP wRFX A1C, CBC #### [address] Aspartate aminotransferase [ Enzymatic activity/volume] in Serum or PlasmaOrdered By: Ehsan Avina on 03-18-2025 AST [Catalytic activity/Vol] 20 U/L 13-39 [facility] Comment on above: Performed By: #### C MP wRFX A1C, CBC #### [facility] [address] Basophils [#/volume] in Bloo d by Automated countOrdered By: Ehsan Avina on 03-18-2025 Basophils (Bld) [#/Vol] 0.1 10*3/uL 0.0-0.2 [facility] Comment on above: Result Comment: PERF ORMED BY: [place] [address] PATHOLOGIST V[employer]UUM DRUM DRIER OPERATOR BROWN OLIVIER M.D. Performed By: #### C MP wRFX A1C, CBC #### [address] Basophils/100 leukocytes in Blood by Automated countOrdered By: Ehsan Avina on 03-18-2025 Basophils/100 WBC (Bld) 0.9 % . [facility] Comment on above: Performed By: #### C MP wRFX A1C, CBC #### [address] Bilirubin.total [Mass/volume ] in Serum or PlasmaOrdered By: Ehsan Avina on 03-18-2025 Bilirubin [Mass/Vol] 1.0 mg/dL 0.3-1.0 [facility] Comment on above: Performed By: #### C MP wRFX A1C, CBC #### [facility] [address] CMP with reflex to A1Con Albumin [Mass/Vol] 4.2 g/dL Normal 3.5-5.7 [facility] Comment on above: Performed By: #### C MP wRFX A1C, CBC #### [place] [address] [place] GFR/1.73 sq M.predicted MDRD (S/P/Bld) [Vol rate/Area] mL/min/{1.73_m2} Normal [facility] Comment on above: Performed By: #### C MP wRFX A1C, CBC #### [facility] [address] Calcium [Mass/volume] in Ser um or PlasmaOrdered By: Ehsan Avina on 03-18-2025 Calcium [Mass/Vol] 9.2 mg/dL 8.6-10.3 [facility] Comment on above: Performed By: #### C MP wRFX A1C, CBC #### [facility] [address] Carbon dioxide, total [Moles /volume] in Serum or PlasmaOrdered By: Ehsan Avina on 03-18-2025 CO2 [Moles/Vol] 29.7 mmol/L 21.0-31.0 [facility] Comment on above: Performed By: #### C MP wRFX A1C, CBC #### [facility] [address] Chloride [Moles/volume] in S dereje or PlasmaOrdered By: Ehsan Avina on 03-18-2025 Chloride [Moles/Vol] 102 mmol/L 98-107 [facility] Comment on above: Performed By: #### C MP wRFX A1C, CBC #### [address] Complete Blood Count Auto Di ffon 03-18-2025 Mean Corpuscular HGB Conc 34.4 g/dL Normal 32.5-35.6 [facility] Comment on above: Performed By: #### C MP wRFX A1C, CBC #### [facility] [address] [place] [address] [place] NRBC% 0.1 /100{WBC} Normal 0-0.5 [facility] Comment on above: Performed By: #### C MP wRFX A1C, CBC #### [facility] [address] White Blood Count 6.4 [CFU]/mL Normal 4.1-10.5 [facility] Comment on above: Performed By: #### C MP wRFX A1C, CBC #### [facility] [address] Creatinine [Mass/volume] in Serum or PlasmaOrdered By: Ehsan Avina on 03-18-2025 Creatinine [Mass/Vol] 1.03 mg/dL 0.70-1.30 [facility] Comment on above: Performed By: #### C MP wRFX A1C, CBC #### [facility] [address] ECG 12 lead ECGon 03-18-2025 ECG 12 lead ECG [facility] Main [place] [address] [place] [address] Electrocardiograph Report Signed Patient: Chai Arnold MR#: [id number] 2 : 1970 Acct:[id number] Age/Sex: 54 / M ADM Date: 03/18/25 Loc: Room: Type: [facility] Attending Dr: Ehsan Avina DO Ordering Provider: [...] previous ECGs available Confirmed by Eduardo Torrez ([id number]) on 03/18/2025 1:40:16 PM Referred By: Electronically Signed By: Eduardo Torrez Transcribed By: MUS Signed By Eduardo Torrez MD 03/18/25 1340 Normal [facility] Eosinophils [#/volume] in Bl ood by Automated countOrdered By: Ehsan Avina on 03-18-2025 Eosinophils (Bld) [#/Vol] 0.9 10*3/uL High 0.0-0.45 [facility] Comment on above: Performed By: #### C MP wRFX A1C, CBC #### [facility] [address] [place] [address] [place] Eosinophils/100 leukocytes i n Blood by Automated countOrdered By: Ehsan Avina on 03-18-2025 Eosinophils/100 WBC (Bld) 14.4 % . [facility] Comment on above: Performed By: #### C MP wRFX A1C, CBC #### [facility] [address] [place] [address] Erythrocyte distribution wid th [Ratio] by Automated countOrdered By: Ehsan Avina on 03-18-2025 Erythrocyte distribution width (RBC) [Ratio] 12.9 % 12.0-14.8 [facility] Comment on above: Performed By: #### C MP wRFX A1C, CBC #### [address] Erythrocytes [#/volume] in B lood by Automated countOrdered By: Ehsan Avina on 03-18-2025 RBC (Bld) [#/Vol] 4.85 10*6/uL 3.90-5.60 [facility] Comment on above: Performed By: #### C MP wRFX A1C, CBC #### [facility] [address] [place] [address] [place] Glucose [Mass/volume] in Ser um or PlasmaOrdered By: Ehsan Avina on 03-18-2025 Glucose [Mass/Vol] 88 mg/dL 70-100 [facility] Comment on above: Performed By: #### C MP wRFX A1C, CBC #### [facility] [address] [place] [address] [place] Hematocrit [Volume Fraction] of Blood by Automated countOrdered By: Ehsan Avina on 03-18-2025 Hematocrit (Bld) [Volume fraction] 46.4 % 38.8-50.0 [facility] Comment on above: Performed By: #### C MP wRFX A1C, CBC #### [facility] [address] [place] [address] [place] Hemoglobin [Mass/volume] in BloodOrdered By: Ehsan Avina on 03-18-2025 Hemoglobin (Bld) [Mass/Vol] 16.0 g/dL 13.0-17.0 [facility] Comment on above: Performed By: #### C MP wRFX A1C, CBC #### [facility] [address] Leukocytes [#/volume] correc ernst for nucleated erythrocytes in Blood by Automated counOrdered By: Ehsan Avina on 03-18-2025 WBC corrected for nucl RBC Auto (Bld) [#/Vol] 6.4 10*3/uL 4.1-10.5 [facility] Leukocytes [#/volume] in Blo od by Automated countOrdered By: Ehsan Avina on 03-18-2025 WBC (Bld) [#/Vol] 6.4 10*3/uL 4.1-10.5 [facility] Comment on above: Performed By: #### C MP wRFX A1C, CBC #### [facility] [address] [place] [address] [place] Lymphocytes [#/volume] in Bl ood by Automated countOrdered By: Ehsan Avina on 03-18-2025 Lymphocytes (Bld) [#/Vol] 1.2 10*3/uL 1.00-4.8 [facility] Comment on above: Performed By: #### C MP wRFX A1C, CBC #### [address] Lymphocytes/100 leukocytes i n Blood by Automated countOrdered By: Ehsan Avina on 03-18-2025 Lymphocytes/100 WBC (Bld) 18.9 % . [facility] Comment on above: Performed By: #### C MP wRFX A1C, CBC #### [facility] [address] [place] [address] [place] MCH [Entitic mass] by Automa ernst countOrdered By: Ehsan Avina on 03-18-2025 MCH (RBC) [Entitic mass] 32.9 pg 27.5-35.2 [facility] Comment on above: Performed By: #### C MP wRFX A1C, CBC #### [facility] [address] [place] [address] [place] MCHC Auto (RBC) [Mass/Vol]Or dered By: Ehsan Avina on 03-18-2025 MCHC (RBC) [Mass/Vol] 34.4 g/dL 32.5-35.6 [facility] MCV [Entitic volume] by Auto mated countOrdered By: Ehsan Avina on 03-18-2025 MCV (RBC) [Entitic vol] 95.7 fL 83.5-101 F [facility] Comment on above: Performed By: #### C MP wRFX A1C, CBC #### [facility] [address] [place] [address] [place] Monocytes [#/volume] in Bloo d by Automated countOrdered By: Ehsan Avina on 03-18-2025 Monocytes (Bld) [#/Vol] 0.6 10*3/uL 0.0-0.8 [facility] Comment on above: Performed By: #### C MP wRFX A1C, CBC #### [facility] [address] [place] [address] [place] Monocytes/100 leukocytes in Blood by Automated countOrdered By: Ehsan Avina on 03-18-2025 Monocytes/100 WBC (Bld) 9.7 % . F [facility] Comment on above: Performed By: #### C MP wRFX A1C, CBC #### [address] Neutrophils [#/volume] in Bl ood by Automated countOrdered By: Ehsan Avina on 03-18-2025 Neutrophils (Bld) [#/Vol] 3.6 10*3/uL 1.8-7.7 [facility] Comment on above: Performed By: #### C MP wRFX A1C, CBC #### [facility] [address] [place] [address] [place] Neutrophils/100 leukocytes i n Blood by Automated countOrdered By: Ehsan Avina on 03-18-2025 Neutrophils/100 WBC (Bld) 56.1 % . [facility] Comment on above: Performed By: #### C MP wRFX A1C, CBC #### [facility] [address] [place] [address] No Panel InformationOrdered By: Ehsan Avina on 03-18-2025 Estimated GFR (CKD-EPI) > 60.0 mL/Min [facility] Creatinine Clearance (Chem N/A [facility] Nucleated erythrocytes [Pres ence] in Blood by Automated countOrdered By: Ehsan Avina on 03-18-2025 Nucleated RBC Auto Ql (Bld) 0.1 /100{WBC} 0-0.5 [facility] Platelet mean volume [Entiti c volume] in Blood by Automated countOrdered By: Ehsan Avina on 03-18-2025 Platelet mean volume (Bld) [Entitic vol] 8.1 fL 6.6-10.1 [facility] Comment on above: Performed By: #### C MP wRFX A1C, CBC #### [facility] [address] [place] [address] [place] Platelets [#/volume] in Bloo d by Automated countOrdered By: Ehsan Avina on 03-18-2025 Platelets (Bld) [#/Vol] 213 10*3/uL 150-450 [facility] Comment on above: Performed By: #### C MP wRFX A1C, CBC #### [facility] [address] [place] [address] [place] Potassium [Moles/volume] in Serum or PlasmaOrdered By: Ehsan Avina on 03-18-2025 Potassium [Moles/Vol] 4.1 mmol/L 3.5-5.1 [facility] Comment on above: Performed By: #### C MP wRFX A1C, CBC #### [facility] [address] [place] [address] [place] Protein [Mass/volume] in Ser um or PlasmaOrdered By: Ehsan Avina on 03-18-2025 Protein [Mass/Vol] 6.9 g/dL 6.4-8.9 [facility] Comment on above: Performed By: #### C MP wRFX A1C, CBC #### [facility] [address] [place] [address] Serum globulin measurement b y calculation (mass/volume)Ordered By: Ehsan Avina on 03-18-2025 Globulin (S) [Mass/Vol] 2.7 g/dL [facility] Comment on above: Performed By: #### C MP wRFX A1C, CBC #### [facility] [address] [place] [address] Serum or plasma albumin/glob ulin mass ratioOrdered By: Ehsan Avina on 03-18-2025 Albumin/Globulin [Mass ratio] 1.6 {ratio} [facility] Comment on above: Performed By: #### C MP wRFX A1C, CBC #### [facility] [address] [place] [address] Serum or plasma anion gap de terminationOrdered By: Ehsan Avina on 03-18-2025 Anion gap [Moles/Vol] 9.4 mmol/L 6.0-15.0 [facility] Comment on above: Performed By: #### C MP wRFX A1C, CBC #### [facility] [address] [place] [address] Sodium [Moles/volume] in Ser um or PlasmaOrdered By: Ehsan Avina on 03-18-2025 Sodium [Moles/Vol] 137 mmol/L 136-145 [facility] Comment on above: Performed By: #### C MP wRFX A1C, CBC #### [facility] [address] [place] [address] Urea nitrogen [Mass/volume] in Serum or PlasmaOrdered By: Ehsan Avina on 03-18-2025 Urea nitrogen [Mass/Vol] 9 mg/dL 7-25 [facility] Comment on above: Performed By: #### C MP wRFX A1C, CBC #### [facility] [address] [place] [address] X-ray reportOrdered By: Rodney Dawson on 03-13-2025 Study report [facility] [address] [place] [address] XRay Report Signed Patient: Chai Arnold MR#: [id number] : 1970 Acct:[id number] Age/Sex: 54 / M ADM Date: 5 Loc: [facility] Room: Type: REG CLI Attending Dr: Ehsan [...] Dawson M.D. 03/13/2025 10:25 PM Dictation Location: [place] [address] Transcribed By: [facility] 03/13/252224 Dictated By: Garrett Dawson DO 03/13/252220 Signed By: 03/13/252224 [facility] XR foot RT min 3V*on 025 XR foot RT min 3V* [facility] [address] [place] [address] XRay Report Signed Patient: Chai Arnold MR#: [id number] 2 : 1970 Acct:[id number] Age/Sex: 54 / M ADM Date: 03/13/25 Loc: [facility] Room: Type: REG CLI Attending Dr: Ehsan [...] 10:25 PM Dictation Location: [facility]20 Transcribed By: [facility] 03/13/252224 Dictated By: Garrett Dawson DO 03/13/252220 Signed By: 03/13/252224 Normal [facility] Doni 03-07-2025 CNPN Telephone ([facility]) ---- CHAI ARNOLD ([id number]) 1970 M Date Time Provider Department 03/07/25 LYDIA DRAKE During your visit today, we recorded the following information about you: Sterling Gonzalez 03/07/2025 1:33 PM Signed Chai Arnold - [phone] Patient contacted the office regarding the baclofen [...] Encounter Status:Closed by STERLING GONZALEZ on 03/07/25 [facility] ANORECTAL MANOMET [facility] 02-28-2025 PATIENT NAME: Chai Arnold PATIENT IDENTITY VERIFICATION COMPLETED USING TWO (2) IDENTIFIERS: Name and Date of confirmed by patient verbally. Referred by: Violette Maurer APRN.CNP Reason for testing: constipation Ileoanal pouch: No SENSITIVE EXAMINATION CONSENT: The sensitive examination was discussed with the Patient or Patient's Authorized Operations Associate. As applicable, any other physician, advance practice provider, medical student, or other health professional student that will be observing or involved in the sensitive examination for educational or training purposes was discussed with the Patient or Authorized Operations Associate. The Patient or Authorized Operations Associate has agreed to proceed with the sensitive examination. Recycling Manager offered:Patient accepts, visit chaperoned by Antonieta PAYNE,RN [...] Guerra MD Colon & Rectal Surgery [employer] [facility] ANORECTAL MANOMET RYOrdered By: Aparna Guerra on 02-28-2025 [facility] Work Phone: Radiology Study observation (narrative) Usha dubose [facility] Work Phone: CNNURSEon 02-28-2025 CNNURSE Nurse Visit ([place]) ---- CHAI ARNOLD ([id number]) 1970 M Date Time Provider Department 02/28/25 12:30 PM SAHIL BERGERON During your visit today, we recorded the following information about you: Referring Provider: VIOLETTE MAURER [[id number]] Allergies As of Date: 02/28/2025 (No Known Allergies) Date Reviewed: 02/28/2025 Reviewed by: Macey Meek OCCA - Fully Assessed Reason for Visit: Manometry [780] Visit Diagnosis:Pelvic floor dysfunction [M62.89] Order(s):ADULT [place] ANORECTAL MANOMETRY [5898713] Order #: [id number] Prescriptions as of 02/28/2025 - ALPRAZolam (XANAX) [...] Encounter Status:Closed by SAHIL BERGERON on 02/28/25 [facility] CNOVon 02-28-2025 CNOV Office Visit ([place]IA) ---- CHAI ARNOLD ([id number]) 1970 M Date Time Provider Department 02/28/25 [...] a compounded preparation from a pharmacy in [place], and previously used hydrocortisone. He has not [...] retroflexed positi (more content not included)... Normal [facility] HISTORY PHYSICALon HISTORY PHYSICAL HNO ID: [id number] Author: LYDIA DRAKE PA-C Service: ? Author Type: Physician Perpetual Inventory Clerk Type: H&P Filed: 02/28/2025 13:41 Note Text: [...] a compounded preparation from a pharmacy in [place], and previously used hydrocortisone. He has not [...] No pa (more content not included)... Normal [facility] 02-11-2025 CNPN Telephone ([facility]) ---- CHAI ARNOLD ([id number]) 1970 M Date Time Provider Department 02/11/25 ASHLEY HAYWARD [facility] During your visit today, we recorded [...] Encounter Status:Closed by CHELLE CHRISTIANSON on 02/11/25 [facility] Ambulatory Visit Summaryon 0 01-24-2025 Ambulatory [...] EDT With: Caitlyn CHAVIS, Vivian Lance Where: [facility] [address] [place] [address]- Medications What How Much When Why Instructions New plecanatide (Trulance 3 mg oral tablet) 1 Tablets By Mouth Every day Constipation Constipation by outlet dysfunction Pelvic floor dysfunction Bloating Stress-related physiological response affecting medical condition Drug dependence Refills: 4 Pickup at [facility] Unchanged amlodipine (amLODIPine 5 mg Tab) [...] physician if questions or concerns Pharmacy Information [facility]: [address] [place] [id number] [phone] Allergies No Known Medication Allergies Problems Ongoing [...] us for your care. Normal [facility] Gastroenterology Office/Clin ic Noteon 01-24-2025 Gastroenterology Office/Clinic [...] him. Will refer to GI psychology at [facility] Advised to use squatty [...] days could not see a provider at [facility] Review of Systems PHQ [...] Daily, # 30 tab(s), Refills(s) 4, Pharmacy: [facility], 173, cm, 01/24/25 10:35:00 EDT, Height/Length Dosing, 86.3, kg, 01/24/25 10:35:00 EDT, Weight Dosing 2. Constipation by outlet dysfunction (K59.02: Outlet dysfunction constipation) Ordered: plecanatide, 3 mg = 1 tab(s), Oral, Daily, # 30 tab(s), Refills(s) 4, Pharmacy: [facility], 173, cm, 01/24/25 10:35:00 EDT, Height/Length Dosing, 86.3, kg, 01/24/25 10:35:00 EDT, Weight Dosing 3. Pelvic floor dysfunction (M62.89: Other specified disorders of muscle) Ordered: plecanatide, 3 mg = 1 tab(s), Oral, Daily, # 30 tab(s), Refills(s) 4, Pharmacy: [facility], 173, cm, 01/24/25 10:35:00 EDT, Height/Length Dosing, 86.3, kg, 01/24/25 10:35:00 EDT, Weight Dosing 4. Bloating (R14.0: Abdominal distension (gaseous)) Ordered: plecanatide, 3 mg = 1 tab(s), Oral, Daily, # 30 tab(s), Refills(s) 4, Pharmacy: [facility], 173, cm, 01/24/25 10:35:00 EDT, Height/Length Dosing, 86.3, kg, 01/24/25 10:35:00 EDT, Weight Dosing 5. Stress-related physiological response affecting medical condition (F54: Psychological and behavioral factors associated with disorders or diseases classified elsewhere) Ordered: (more content not included)... Normal [facility] Comment on above: Result Comment: [...] Someone Will Contact You Regarding These Appointments [facility] External Ambulatory Referral, Gastroenterology, 01/09/25 13:16:00 EDT, [...] choosing us for your care. Normal [facility] Gastroenterology Office/Clin ic Noteon 01-09-2025 [...] him. Will refer to GI psychology at [facility] Advised to use squatty [...] 11/18/2020 Recorded (more content not included)... Normal [facility] Comment on above: Result Comment: Elec tronically Signed By: Caitlyn CHAVIS, Vivian Lance\.br\Date and Time Signed: 01/09/25 13:17 EDT COMPLETE BLOOD COUNTon 12-10 Erythrocyte distribution width (RBC) [Ratio] 13.5 % Normal 11.5-15.0 [facility] Comment on above: Performed By: #### C BC, [facility], 2498-4, 84524-9, 2857-1, TSHR #### [facility] ([id number]) [address] [address] Hematocrit (Bld) [Volume fraction] 48.2 % Normal 39-49 [facility] Comment on above: Performed By: #### C BC, CMP, 2498-4, 48597-1, 2857-1, TSHR #### [facility] ([id number]) [address], [address] [place] [address] Hemoglobin (Bld) [Mass/Vol] 16.1 g/dL Normal 13.0-17.0 [facility] Comment on above: Performed By: #### C BC, CMP, 2498-4, 39292-5, 2857-1, TSHR #### [facility] ([id number]) [address], [facility] [address] [place] [address] MCH (RBC) [Entitic mass] 31.9 pg Normal 27-34 [facility] Comment on above: Performed By: #### C BC, CMP, 2498-4, 30942-7, 2857-1, TSHR #### [facility] ([id number]) [address], [address] [place] [address] MCHC (RBC) [Mass/Vol] 33.4 g/dL Normal 32-36 [facility] Comment on above: Performed By: #### C BC, CMP, 2498-4, 83588-5, 2857-1, TSHR #### [facility] ([id number]) [address], [facility] [address] [place] [address] MCV (RBC) [Entitic vol] 96 fL Normal 80-100 [facility] Comment on above: Performed By: #### C BC, CMP, 2498-4, 92999-9, 2857-1, TSHR #### [facility] ([id number]) [address], [address] [place] [address] Platelet mean volume (Bld) [Entitic vol] 9.6 fL Normal 7-12 [facility] Comment on above: Performed By: #### C BC, CMP, 2498-4, 83106-6, 2857-1, TSHR #### [facility] ([id number]) [address], [address] [place] [address] Platelets (Bld) [#/Vol] 184 10*3/uL Normal 150-450 [facility] Comment on above: Performed By: #### C BC, CMP, 2498-4, 20315-7, 2857-1, TSHR #### [facility] ([id number]) [address], [address] [place] [address] RBC COUNT 5.04 X10E12/L Normal 4.10-5.70 [facility] Comment on above: Performed By: #### C BC, CMP, 2498-4, 18436-1, 2857-1, TSHR #### [facility] ([id number]) [address], [address] [place] [address] WBC (Bld) [#/Vol] 5.2 10*3/uL Normal 4.0-11.0 [facility] Comment on above: Performed By: #### C BC, CMP, 2498-4, 28724-5, 2857-1, TSHR #### [facility] ([id number]) [address], [address] [place] [address] COMPREHENSIVE METABOLIC PANE Vern 12-10-2024 Albumin [Mass/Vol] 4.5 g/dL Normal 3.2-5.3 [facility] Comment on above: Performed By: #### C BC, CMP, 2498-4, 64874-8, 2857-1, TSHR #### [facility] ([id number]) [address], [address] [place] [address] ALP [Catalytic activity/Vol] 101 U/L Normal 39-130 [facility] Comment on above: Performed By: #### C BC, CMP, 2498-4, 26283-1, 2857-1, TSHR #### [facility] ([id number]) [address], [address] [place] [address] ALT [Catalytic activity/Vol] 38 U/L Normal 0-40 [facility] Comment on above: Performed By: #### C BC, CMP, 2498-4, 65756-6, 2857-1, TSHR #### [facility] ([id number]) [address], [address] [place] [address] Anion gap [Moles/Vol] 11 mmol/L Normal 5-15 [facility] Comment on above: Performed By: #### C BC, CMP, 2498-4, 70388-9, 2857-1, TSHR #### [facility] ([id number]) [address], [address] [place] [address] AST [Catalytic activity/Vol] 28 U/L Normal 0-41 [facility] Comment on above: Performed By: #### C BC, CMP, 2498-4, 17177-7, 2857-1, TSHR #### [facility] ([id number]) [address], [address] [place] [address] Bilirubin [Mass/Vol] 0.6 mg/dL Normal 0.3-1.2 [facility] Comment on above: Performed By: #### C BC, CMP, 2498-4, 76483-0, 2857-1, TSHR #### [facility] ([id number]) [address], [address] [place] [address] Calcium [Mass/Vol] 9.6 mg/dL Normal 8.5-10.5 [facility] Comment on above: Performed By: #### C BC, CMP, 2498-4, 30547-1, 2857-1, TSHR #### [facility] ([id number]) [address], [address] [place] [address] Chloride [Moles/Vol] 105 mmol/L Normal 98-109 [facility] Comment on above: Performed By: #### C BC, CMP, 2498-4, 16415-2, 2857-1, TSHR #### [facility] ([id number]) [address], [address] [place] [address] CO2 [Moles/Vol] 26 mmol/L Normal 22-32 [facility] Comment on above: Performed By: #### C BC, CMP, 2498-4, 43584-7, 2857-1, TSHR #### [facility] ([id number]) [address], [address] [place] [address] Creatinine [Mass/Vol] 0.94 mg/dL Normal 0.60-1.30 [facility] Comment on above: Result Comment: METH OD TRACEABLE TO IDMS STANDARD Performed By: #### C KARLEY, CMP, 2498-4, 25225-8, 2857-1, TSHR #### [facility] ([id number]) [address], [address] [place] [address] eGFR (CKD-EPI) NON-RACE DEPENDENT >90 Normal >59 [facility] Comment on above: Result Comment: Reported eGFR is based on the CKD-EPI 2020 equation that does not use a race coefficient. Performed By: #### C KARLEY, CMP, 2498-4, 36710-3, 2857-1, TSHR #### [facility] ([id number]) [address], [address] [place] [address] Glucose [Mass/Vol] 86 mg/dL Normal 65-99 [facility] Comment on above: Performed By: #### Remberto CRANDALL, CMP, 2498-4, 10475-5, 2857-1, TSHR #### [facility] ([id number]) [address], [address] [place] [address] Potassium [Moles/Vol] 4.2 mmol/L Normal 3.5-5.0 [facility] Comment on above: Performed By: #### Remberto CRANDALL, CMP, 2498-4, 14279-0, 2857-1, TSHR #### [facility] ([id number]) [address], [address] [place] [address] Protein [Mass/Vol] 7.4 g/dL Normal 6.0-8.0 [facility] Comment on above: Performed By: #### C BC, CMP, 2498-4, 84027-1, 2857-1, TSHR #### [facility] ([id number]) [address], [address] [place] [address] Sodium [Moles/Vol] 142 mmol/L Normal 134-146 [facility] Comment on above: Performed By: #### C BC, CMP, 2498-4, 44614-5, 2857-1, TSHR #### [facility] ([id number]) [address], [facility] [address] [place] [address] Urea nitrogen [Mass/Vol] 13 mg/dL Normal 5-23 [facility] Comment on above: Performed By: #### Remberto BC, CMP, 2498-4, 43629-3, 2857-1, TSHR #### [facility] ([id number]) [address], [facility] [address] [place] [address] IRONon 12-10-2024 Iron [Mass/Vol] 184 ug/dL Normal 50-212 [facility] Comment on above: Performed By: ###Oseas Sr BC, CMP, 2498-4, 72103-4, 2857-1, TSHR #### [facility] ([id number]) [address], [address] [address] Lipid 1996 panelon Cholesterol [Mass/Vol] 183 mg/dL Normal 150-200 [facility] Comment on above: Performed By: ###Oseas Sr BC, CMP, 2498-4, 59544-6, 2857-1, TSHR #### [facility] ([id number]) [address] [address] Cholesterol in HDL [Mass/Vol] 38 mg/dL Low >39 [facility] Comment on above: Result Comment: HDL <40 mg/dL - High Risk HDL > or = 40mg/dL- Desirable HDL >60 mg/dL - Negative Risk Performed By: #### Remberto BC, CMP, 2498-4, 00604-5, 2857-1, TSHR #### [facility] ([id number]) [address] [address] Cholesterol in LDL [Mass/Vol] 121 mg/dL Normal <130 [facility] Comment on above: Result Comment: LDL <100 mg/dL - Desirable LDL >160 mg/dL - High Risk Performed By: #### C BC, CMP, 2498-4, 67962-7, 2857-1, TSHR #### [facility] ([id number]) [address] [address] Cholesterol in VLDL [Mass/Vol] 24 mg/dL Normal 0-30 [facility] Comment on above: Performed By: #### Remberto BC, CMP, 2498-4, 91640-6, 2857-1, TSHR #### [facility] ([id number]) [address] [address] CHOLESTEROL:HDL 4.8 Normal 1.0-5.0 [facility] Comment on above: Performed By: #### Remberto BC, CMP, 2498-4, 24742-7, 2857-1, TSHR #### [facility] ([id number]) [address] [address] Triglyceride [Mass/Vol] 119 mg/dL Normal 27-150 [facility] Comment on above: Performed By: #### Remberto BC, CMP, 2498-4, 68580-9, 2857-1, TSHR #### [facility] ([id number]) [address] [address] Prostate specific Ag [Mass/V ol]on 12-10-2024 PSA SCREEN 0.57 ng/mL Normal 0.00-4.00 [facility] Comment on above: Result Comment: The method used for this test is Graciela Shashi DXI chemiluminescent immunoassay. Values obtained by different assay methods cannot be used interchangeably. Performed By: #### C BC, CMP, 2498-4, 35888-3, 2857-1, TSHR #### [facility] ([id number]) [address] [address] TSH WITH REFLEXon 12-10-2024 TSH 1.34 uIU/mL Normal 0.49-4.67 [facility] Comment on above: Performed By: #### C BC, CMP, 2498-4, 06945-6, 2857-1, TSHR #### [facility] ([id number]) [address] [address] COMPLETE BLOOD COUNTon 09-11 Erythrocyte distribution width (RBC) [Ratio] 13.4 % Normal 11.5-15.0 [facility] Comment on above: Performed By: #### Remberto CRANDALL, CMP, 2857-1, TSHR #### [facility] ([id number]) [address] [address] Hematocrit (Bld) [Volume fraction] 47.4 % Normal 39-49 [facility] Comment on above: Performed By: #### Remberto BC, CMP, 2857-1, TSHR #### [facility] ([id number]) [address] [address] Hemoglobin (Bld) [Mass/Vol] 16.4 g/dL Normal 13.0-17.0 [facility] Comment on above: Performed By: #### Remberto BC, CMP, 2857-1, TSHR #### [facility] ([id number]) [address] [address] MCH (RBC) [Entitic mass] 32.4 pg Normal 27-34 [facility] Comment on above: Performed By: #### Remberto BC, CMP, 2857-1, TSHR #### [facility] ([id number]) [address] [place] [address] MCHC (RBC) [Mass/Vol] 34.6 g/dL Normal 32-36 [facility] Comment on above: Performed By: #### Remberto BC, CMP, 2857-1, TSHR #### [facility] ([id number]) [address] [address] [place] [address] MCV (RBC) [Entitic vol] 94 fL Normal 80-100 [facility] Comment on above: Performed By: #### Remberto BC, CMP, 2857-1, TSHR #### [facility] ([id number]) [address] [address] [place] [address] Platelet mean volume (Bld) [Entitic vol] 9.4 fL Normal 7-12 [facility] Comment on above: Performed By: #### Remberto CRANDALL, CMP, 2857-1, TSHR #### [facility] ([id number]) [address] [address] [place] [address] Platelets (Bld) [#/Vol] 235 10*3/uL Normal 150-450 [facility] Comment on above: Performed By: #### Remberto BC, CMP, 2857-1, TSHR #### [facility] ([id number]) [address] [address] [place] [address] RBC COUNT 5.06 X10E12/L Normal 4.10-5.70 [facility] Comment on above: Performed By: #### Remberto BC, CMP, 2857-1, TSHR #### [facility] ([id number]) [address] [address] [place] [address] WBC (Bld) [#/Vol] 7.0 10*3/uL Normal 4.0-11.0 [facility] Comment on above: Performed By: #### Remberto BC, CMP, 2857-1, TSHR #### [facility] ([id number]) [address] [place] [address] COMPREHENSIVE METABOLIC PANE Vern 09-11-2024 Albumin [Mass/Vol] 4.5 g/dL Normal 3.2-5.3 [facility] Comment on above: Performed By: #### C BC, CMP, 2857-1, TSHR #### [facility] ([id number]) [address], [address] [place] [address] ALP [Catalytic activity/Vol] 133 U/L High 39-130 [facility] Comment on above: Performed By: #### C BC, CMP, 2857-1, TSHR #### [facility] ([id number]) [address], [address] [place] [address] ALT [Catalytic activity/Vol] 20 U/L Normal 0-40 [facility] Comment on above: Performed By: #### Remberto BC, CMP, 2857-1, TSHR #### [facility] ([id number]) [address], [address] [place] [address] Anion gap [Moles/Vol] 10 mmol/L Normal 5-15 [facility] Comment on above: Performed By: #### Remberto BC, CMP, 2857-1, TSHR #### [facility] ([id number]) [address], [address] [place] [address] AST [Catalytic activity/Vol] 26 U/L Normal 0-41 [facility] Comment on above: Performed By: #### C BC, CMP, 2857-1, TSHR #### [facility] ([id number]) [address], [address] [place] [address] Bilirubin [Mass/Vol] 0.8 mg/dL Normal 0.3-1.2 [facility] Comment on above: Performed By: #### C BC, CMP, 2857-1, TSHR #### [facility] ([id number]) [address], [address] [place] [address] Calcium [Mass/Vol] 9.6 mg/dL Normal 8.5-10.5 [facility] Comment on above: Performed By: #### Remberto CRANDALL CMP, 2857-1, TSHR #### [facility] ([id number]) [address], [address] [place] [address] Chloride [Moles/Vol] 103 mmol/L Normal 98-109 [facility] Comment on above: Performed By: #### Remberto CRANDALL CMP, 2857-1, TSHR #### [facility] ([id number]) [address], [facility] [address] [place] [address] CO2 [Moles/Vol] 27 mmol/L Normal 22-32 [facility] Comment on above: Performed By: #### Remberto CRANDALL CMP, 2857-1, TSHR #### [facility] ([id number]) [address], [address] [place] [address] Creatinine [Mass/Vol] 1.05 mg/dL Normal 0.60-1.30 [facility] Comment on above: Result Comment: METH OD TRACEABLE TO IDMS STANDARD Performed By: #### Remberto CRANDALL CMP, 2857-1, TSHR #### [facility] ([id number]) [address], [facility] [address] [place] [address] GFR/1.73 sq M.predicted among non-blacks MDRD (S/P/Bld) [Vol rate/Area] 83 mL/min/{1.73_m2} Normal >59 [facility] Comment on above: Result Comment: Reported eGFR is based on the CKD-EPI 2020 equation that does not use a race coefficient. Performed By: #### Remberto CRANDALL CMP, 2857-1, TSHR #### [facility] ([id number]) [address], [address] [place] [address] Glucose [Mass/Vol] 87 mg/dL Normal 65-99 [facility] Comment on above: Performed By: #### Remberto CRANDALL, CMP, 2857-1, TSHR #### [facility] ([id number]) [address] [address] [place] [address] Potassium [Moles/Vol] 3.9 mmol/L Normal 3.5-5.0 [facility] Comment on above: Performed By: #### Remberto CRANDALL CMP, 2857-1, TSHR #### [facility] ([id number]) [address] [address] [place] [address] Protein [Mass/Vol] 7.3 g/dL Normal 6.0-8.0 [facility] Comment on above: Performed By: #### Remberto CRANDALL CMP, 2857-1, TSHR #### [facility] ([id number]) [address] [address] [place] [address] Sodium [Moles/Vol] 140 mmol/L Normal 134-146 [facility] Comment on above: Performed By: #### Remberto CRANDALL CMP, 2857-1, TSHR #### [facility] ([id number]) [address] [address] [place] [address] Urea nitrogen [Mass/Vol] 6 mg/dL Normal 5-23 [facility] Comment on above: Performed By: #### Remberto CRANDALL CMP, 2857-1, TSHR #### [facility] ([id number]) [address] [address] [place] [address] Prostate specific Ag [Mass/V ol]on 09-11-2024 PSA SCREEN 0.71 ng/mL Normal 0.00-4.00 [facility] Comment on above: Result Comment: The method used for this test is Graciela [place] DXI chemiluminescent immunoassay. Values obtained by different assay methods cannot be used interchangeably. Performed By: #### Remberto CRANDALL, CMP, 2857-1, TSHR #### [facility] ([id number]) [address] [address] [place] [address] TSH WITH REFLEXon 09-11-2024 TSH 1.29 uIU/mL Normal 0.49-4.67 [facility] Comment on above: Performed By: #### C BC, CMP, 2857-1, TSHR #### [facility] ([id number]) [address], [address] [place] [address] CBC AND AUTO DIFFon 05-15-20 ABSOLUTE BASOPHIL 0.1 X10E9/L Normal 0.0-0.2 [facility] Comment on above: Performed By: #### C BCA, CMP, 3040-3, 00812-9 #### [facility] ([id number]) [address] [place] [address] ABSOLUTE NEUTROPHIL 5.7 X10E9/L Normal 1.5-6.6 [facility] Comment on above: Performed By: #### C BCA, CMP, 3040-3, 02518-3 #### [facility] ([id number]) [address] [place] [address] Basophils/100 WBC (Bld) 0.7 % Normal [facility] Comment on above: Performed By: #### C BCA, CMP, 3040-3, 63680-6 #### [facility] ([id number]) [address] [place] [address] Eosinophils (Bld) [#/Vol] 0.4 10*3/uL Normal 0.0-0.4 [facility] Comment on above: Performed By: #### C BCA, CMP, 3040-3, 69598-3 #### [facility] ([id number]) [address] [place] [address] Eosinophils/100 WBC (Bld) 4.9 % Normal [facility] Comment on above: Performed By: #### C BCA, CMP, 3040-3, 58121-3 #### [facility] ([id number]) [address] [place] [address] Erythrocyte distribution width (RBC) [Ratio] 12.3 % Normal 11.5-15.0 [facility] Comment on above: Performed By: #### C ALEXANDRIA ANTOINE, 3040-3, 01047-4 #### [facility] ([id number]) [address] [place] [address] Hematocrit (Bld) [Volume fraction] 41.8 % Normal 39-49 [facility] Comment on above: Performed By: #### C ALEX[place]RI[place] ANTOINE, 3, 48378-3 #### [facility] ([id number]) [address] [place] [address] Hemoglobin (Bld) [Mass/Vol] 15.1 g/dL Normal 13.0-17.0 [facility] Comment on above: Performed By: #### Remberto ANTOINE CMP, 3, 99140-1 #### [facility] ([id number]) [address] [place] [address] Lymphocytes (Bld) [#/Vol] 1.4 10*3/uL Normal 1.0-3.5 [facility] Comment on above: Performed By: #### Remberto ANTOINE CMP, 30403, 72995-9 #### [facility] ([id number]) [address] [place] [address] Lymphocytes/100 WBC (Bld) 17.3 % Normal [facility] Comment on above: Performed By: #### Remberto ANTOINE CMP, 304-3, 98636-8 #### [facility] ([id number]) [address] [place] [address] MCH (RBC) [Entitic mass] 32.3 pg Normal 27-34 [facility] Comment on above: Performed By: #### C BCA, CMP, 0-3, 91513-2 #### [facility] ([id number]) [address] [place] [address] MCHC (RBC) [Mass/Vol] 36.0 g/dL Normal 32-36 [facility] Comment on above: Performed By: #### C ARASH, CMP, 0-3, 03779-4 #### [facility] ([id number]) [address] [place] [address] MCV (RBC) [Entitic vol] 90 fL Normal 80-100 [facility] Comment on above: Performed By: #### C ARASH, CMP, 0-3, 25677-4 #### [facility] ([id number]) [address] [place] [address] Monocytes (Bld) [#/Vol] 0.6 10*3/uL Normal 0-0.9 [facility] Comment on above: Performed By: #### C ARASH, CMP, 0-3, 20259-3 #### [facility] ([id number]) [address] [place] [address] 94645 Monocytes/100 WBC (Bld) 7.6 % Normal [facility] Comment on above: Performed By: #### Remberto ANTOINE, CMP, 3039-3, 59831-7 #### [facility] ([id number]) [address] [place] [address] 04798 Neutrophils/100 WBC (Bld) 69.5 % Normal [facility] Comment on above: Performed By: #### Remberto BCA, CMP, 0-3, 11167-8 #### [facility] ([id number]) [address] [place] [address] 42604 Platelet mean volume (Bld) [Entitic vol] 8.2 fL Normal 7-12 [facility] Comment on above: Performed By: #### C BCA, CMP, 0-3, 22646-7 #### [facility] ([id number]) [address] [place] [address] 39408 Platelets (Bld) [#/Vol] 254 10*3/uL Normal 150-450 [facility] Comment on above: Performed By: #### C BCA, CMP, 3040-3, 75631-1 #### [facility] ([id number]) [address] [place] [address] 32798 RBC COUNT 4.66 X10E12/L Normal 4.10-5.70 [facility] Comment on above: Performed By: #### C BCA, CMP, 3040-3, 26899-8 #### [facility] ([id number]) [address] [place] [address] 61153 WBC (Bld) [#/Vol] 8.1 10*3/uL Normal 4.0-11.0 [facility] Comment on above: Performed By: #### C BCA, CMP, 3040-3, 50182-6 #### [facility] ([id number]) [address] [place] [address] 95443 COMPREHENSIVE METABOLIC PANE [facility] 05-15-2024 Albumin [Mass/Vol] 4.5 g/dL Normal 3.2-5.3 [facility] Comment on above: Performed By: #### C BCA, CMP, 3040-3, 18932-8 #### [facility] ([id number]) [address] [place] [address] 67667 ALP [Catalytic activity/Vol] 105 U/L Normal 39-130 [facility] Comment on above: Performed By: #### C BCA, CMP, 3040-3, 55932-4 #### [facility] ([id number]) [address] [place] [address] 74934 ALT [Catalytic activity/Vol] 33 U/L Normal 0-40 [facility] Comment on above: Performed By: #### C BCA, CMP, 3040-3, 67265-9 #### [facility] ([id number]) [address] [place] [address]3979 Anion gap [Moles/Vol] 9 mmol/L Normal 5-15 [facility] Comment on above: Performed By: #### C BCA, CMP, 3040-3, 47581-3 #### [facility] ([id number]) [address] [place] [address] 83867 AST [Catalytic activity/Vol] 29 U/L Normal 0-41 [facility] Comment on above: Performed By: #### C BCA, CMP, 3040-3, 02262-8 #### [facility] ([id number]) [address] [place] [address] 79483 Bilirubin [Mass/Vol] 0.9 mg/dL Normal 0.3-1.2 [facility] Comment on above: Performed By: #### C BCA, CMP, 3040-3, 16522-9 #### [facility] ([id number]) [address] [place] [address] 55034 Calcium [Mass/Vol] 9.1 mg/dL Normal 8.5-10.5 [facility] Comment on above: Performed By: #### C BCA, CMP, 3040-3, 58525-7 #### [facility] ([id number]) [address] [place] [address] 37666 Chloride [Moles/Vol] 96 mmol/L Low 98-109 [facility] Comment on above: Performed By: #### C BCA, CMP, 3040-3, 48163-3 #### [facility] ([id number]) [address] [place] [address] 07274 CO2 [Moles/Vol] 24 mmol/L Normal 22-32 [facility] Comment on above: Performed By: #### C ALEXANDRIA ANTOINE, 3040-3, 07031-8 #### [facility] ([id number]) [address] [place] [address] 40872 Creatinine [Mass/Vol] 0.91 mg/dL Normal 0.70-1.20 [facility] Comment on above: Result Comment: METH OD TRACEABLE TO IDMS STANDARD Performed By: #### C ALEXANDRIA ANTOINE, 3040-3, 99087-5 #### [facility] ([id number]) [address] [place] [address] 28561 eGFR (CKD-EPI) NON-RACE DEPENDENT >90 Normal >59 [facility] Comment on above: Result Comment: Reported eGFR is based on the CKD-EPI 2020 equation that does not use a race coefficient. Performed By: #### C ALEXANDRIA ANTOINE, 3040-3, 93750-9 #### [facility] ([id number]) [address] [place] [address] 39455 Glucose [Mass/Vol] 97 mg/dL Normal 65-99 [facility] Comment on above: Performed By: #### C ALEXANDRIA ANTOINE, 3040-3, 89598-3 #### [facility] ([id number]) [address] [place] [address] 34146 Potassium [Moles/Vol] 3.2 mmol/L Low 3.5-5.0 [facility] Comment on above: Performed By: #### C ALEXANDRIA ANTOINE, 3040-3, 92909-1 #### [facility] ([id number]) [address] [place] [address] 80547 Protein [Mass/Vol] 7.2 g/dL Normal 6.0-8.0 [facility] Comment on above: Performed By: #### C ALEXANDRIA ANTOINE, 3040-3, 68930-1 #### [facility] ([id number]) [address] [place] [address] 65600 Sodium [Moles/Vol] 129 mmol/L Low 134-146 [facility] Comment on above: Performed By: #### C ARASH CMP, 3040-3, 48921-6 #### [facility] ([id number]) [address] [place] [address] 29392 Urea nitrogen [Mass/Vol] 15 mg/dL Normal 5-23 [facility] Comment on above: Performed By: #### C ALEXANDRIA ANTOINE, 3040-3, 98478-6 #### [facility] ([id number]) [address] [place] [address] 72953 LIPASEon 05-15-2024 Lipase [Catalytic activity/Vol] 37 U/L Normal 17-40 [facility] Comment on above: Performed By: #### C ALEXANDRIA ANTOINE, 3040-3, 09819-8 #### [facility] ([id number]) [address] [place] [address] 24210 Lactate (P cherie) [Moles/Vol]o n 05-15-2024 LACTATE W/REFLEX 1.0 mmol/L Normal 0.4-2.0 [facility] Comment on above: Result Comment: Result did not trigger repeat Lactate, re-order if needed. Performed By: #### 3 2133-1 #### [facility] ([id number]) [address] [place] [address] 07940 Troponin I.cardiac High sens itivity method [Mass/Vol]on 05-15-2024 1 HOUR TROP I, HIGH SENSITIVITY 3 ng/L Normal <21 [facility] Comment on above: Performed By: #### 8 9579-7 #### [facility] ([id number]) [address] [place] [address] 38077 TROPONIN I, HIGH SENSITIVITY 3 ng/L Normal <21 [facility] Comment on above: Performed By: #### C BCA, CMP, 3040-3, 85100-9 #### [facility] ([id number]) [address] [facility] [place] [address] Bacteria [Presence] in Urine by AutomatedOrdered By: Nish Davidson on 03-03-2024 Bacteria Auto Ql (U) None seen [HPF] None Seen [facility] Basophils Auto (Bld) [#/Vol] Ordered By: James De on 03-03-2024 Basophils (Bld) [#/Vol] 0.0 10*3/uL 0.0-0.2 [facility] Basophils/100 WBC Auto (Bld) Ordered By: James De on 03-03-2024 Basophils/100 WBC (Bld) 0.4 % . F [facility] Bilirubin Test strip Ql (U)O rdered By: Nish Davidson on 03-03-2024 Bilirubin Ql (U) Negative Negative [facility] Calcium [Mass/volume] in Ser um or PlasmaOrdered By: James De on 03-03-2024 Calcium [Mass/Vol] 9.5 mg/dL 8.6-10.3 [facility] Carbon dioxide, total [Moles /volume] in Serum or PlasmaOrdered By: James De on 03-03-2024 CO2 [Moles/Vol] 25.3 mmol/L 21.0-31.0 [facility] Chloride [Moles/volume] in S dereje or PlasmaOrdered By: James De on 03-03-2024 Chloride [Moles/Vol] 102 mmol/L 98-107 [facility] Color Auto (U)Ordered By: Dimitry Davidson on 03-03-2024 Color (U) Yellow Yellow [facility] Creatinine [Mass/volume] in Serum or PlasmaOrdered By: James De on 03-03-2024 Creatinine [Mass/Vol] 1.18 mg/dL 0.70-1.30 [facility] Eosinophils Auto (Bld) [#/Vo l]Ordered By: James De on 03-03-2024 Eosinophils (Bld) [#/Vol] 0.2 10*3/uL 0.0-0.45 [facility] Eosinophils/100 WBC Auto (Bl d)Ordered By: James De on 03-03-2024 Eosinophils/100 WBC (Bld) 2.6 % . [facility] Epithelial cells.squamous [# /area] in Urine sediment by Automated countOrdered By: Nish Davidson on 03-03-2024 Epithelial cells.squamous Auto (Urine sed) [#/Area] 1-2 [HPF] 0-2 [facility] Erythrocyte distribution wid th Auto (RBC) [Ratio]Ordered By: James De on 03-03-2024 Erythrocyte distribution width (RBC) [Ratio] 12.6 % 12.0-14.8 [facility] Erythrocytes [#/area] in Uri ne sediment by Automated countOrdered By: Nish Davidson on 03-03-2024 RBC Auto (Urine sed) [#/Area] None seen [HPF] 0-4 [facility] Glucose [Mass/volume] in Ser um or PlasmaOrdered By: James De on 03-03-2024 Glucose [Mass/Vol] 83 mg/dL 70-100 [facility] Comment on above: ADA recommended refe rence rangeRandom Glucose Reference Range is dependent on time and content of last meal. Glucose of more than 200 mg/dL in a nonstressed, ambulatory subject supports the diagnosis of Diabetes Mellitus. Glucose [Mass/volume] in Uri ne by Test stripOrdered By: Nish Davidson on 03-03-2024 Glucose Test strip (U) [Mass/Vol] Normal mg/dL Normal [facility] Hematocrit Auto (Bld) [Volum e fraction]Ordered By: James De on 03-03-2024 Hematocrit (Bld) [Volume fraction] 52.6 % High 38.8-50.0 [facility] Hemoglobin Test strip Ql (U) Ordered By: Nish Davidson on 03-03-2024 Hemoglobin Ql (U) Negative Negative [facility] Hemoglobin [Mass/volume] in BloodOrdered By: James De on 03-03-2024 Hemoglobin (Bld) [Mass/Vol] 18.5 g/dL High 13.0-17.0 [facility] Hyaline casts [#/area] in Ur ine sediment by Automated countOrdered By: Nish Davidson on 03-03-2024 Hyaline casts Auto (Urine sed) [#/Area] 0-8 [LPF] 0-8 [facility] Ketones Test strip Ql (U)Ord ered By: Nish Davidson on 03-03-2024 Ketones Ql (U) 2+ High Negative [facility] Leukocyte esterase [Presence ] in Urine by Test stripOrdered By: Nish Davidson on 03-03-2024 Leukocyte esterase Test strip Ql (U) Negative Negative [facility] Leukocytes [#/area] in Urine sediment by Automated countOrdered By: Nish Davidson on 03-03-2024 WBC Auto (Urine sed) [#/Area] 1-2 [HPF] 0-4 [facility] Leukocytes [#/volume] correc ernst for nucleated erythrocytes in Blood by Automated counOrdered By: James De on 03-03-2024 WBC corrected for nucl RBC Auto (Bld) [#/Vol] 9.0 10*3/uL 4.1-10.5 [facility] Lymphocytes Auto (Bld) [#/Vo l]Ordered By: James De on 03-03-2024 Lymphocytes (Bld) [#/Vol] 1.2 10*3/uL 1.00-4.8 [facility] Lymphocytes/100 WBC Auto (Bl d)Ordered By: James De on 03-03-2024 Lymphocytes/100 WBC (Bld) 13.4 % . [facility] MCH Auto (RBC) [Entitic mass ]Ordered By: James De on 03-03-2024 MCH (RBC) [Entitic mass] 32.8 pg 27.5-35.2 [facility] MCHC Auto (RBC) [Mass/Vol]Or dered By: James De on 03-03-2024 MCHC (RBC) [Mass/Vol] 35.1 g/dL 32.5-35.6 [facility] MCV Auto (RBC) [Entitic vol] Ordered By: James De on 03-03-2024 MCV (RBC) [Entitic vol] 93.4 fL 83.5-101 [facility] Monocyte distribution width [Entitic volume] in Blood by AutomatedOrdered By: James De on 03-03-2024 Monocyte distribution width Auto (Bld) [Entitic vol] 17.08 % 0.00-20.00 [facility] Monocytes Auto (Bld) [#/Vol] Ordered By: James De on 03-03-2024 Monocytes (Bld) [#/Vol] 0.8 10*3/uL 0.0-0.8 [facility] Monocytes/100 WBC Auto (Bld) Ordered By: James De on 03-03-2024 Monocytes/100 WBC (Bld) 8.7 % . [facility] Mucus [Presence] in Urine by AutomatedOrdered By: Nish Davidson on 03-03-2024 Mucus Auto Ql (U) 1+ [LPF] Abnormal [facility] Neutrophils Auto (Bld) [#/Vo l]Ordered By: James De on 03-03-2024 Neutrophils (Bld) [#/Vol] 6.7 10*3/uL 1.8-7.7 [facility] Neutrophils/100 WBC Auto (Bl d)Ordered By: James De on 03-03-2024 Neutrophils/100 WBC (Bld) 74.9 % . [facility] Nitrite Test strip Ql (U)Ord ered By: Nish Davidson on 03-03-2024 Nitrite Ql (U) Negative Negative [facility] No Panel InformationOrdered By: James De on 03-03-2024 Estimated GFR (CKD-EPI) > 60.0 mL/Min [facility] Creatinine Clearance (Chem 68.43 [facility] Nucleated erythrocytes [Pres ence] in Blood by Automated countOrdered By: James De on 03-03-2024 Nucleated RBC Auto Ql (Bld) 0.4 /100{WBC} 0-0.5 [facility] Platelet adequacy [Presence] in Blood by Light microscopyOrdered By: James De on 03-03-2024 Platelets LM Ql (Bld) Normal Normal [facility] Platelet mean volume Auto (B ld) [Entitic vol]Ordered By: James De on 03-03-2024 Platelet mean volume (Bld) [Entitic vol] 8.4 fL 6.6-10.1 [facility] Platelet morphology finding [Identifier] in BloodOrdered By: James De on 03-03-2024 Platelet morphology finding Nom (Bld) Normal Normal [facility] Platelets Auto (Bld) [#/Vol] Ordered By: James De on 03-03-2024 Platelets (Bld) [#/Vol] 207 10*3/uL 150-450 [facility] Potassium [Moles/volume] in Serum or PlasmaOrdered By: James De on 03-03-2024 Potassium [Moles/Vol] 3.7 mmol/L 3.5-5.1 [facility] Protein Test strip (U) [Mass /Vol]Ordered By: Nish Davidson on 03-03-2024 Protein (U) [Mass/Vol] Trace mg/dL High Negative [facility] RBC Auto (Bld) [#/Vol]Ordere d By: James De on 03-03-2024 RBC (Bld) [#/Vol] 5.64 10*6/uL High 3.90-5.60 [facility] RBC morphologyOrdered By: Asad De on 03-03-2024 RBC morphology finding Nom (Bld) Normal Normal [facility] Serum or plasma anion gap de terminationOrdered By: James De on 03-03-2024 Anion gap [Moles/Vol] 12.4 mmol/L 6.0-15.0 [facility] Sodium [Moles/volume] in Ser um or PlasmaOrdered By: James De on 03-03-2024 Sodium [Moles/Vol] 136 mmol/L 136-145 [facility] Specific gravity Test strip (U) [Rel density]Ordered By: Nish Davidson on 03-03-2024 Specific gravity (U) [Rel density] 1.015 1.001-1.030 [facility] Transitional cells [#/area] in Urine by Computer assisted methodOrdered By: Nish Davidson on 03-03-2024 Transitional cells Computer assisted (U) [#/Area] 1-2 [HPF] High 0-1 [facility] Urea nitrogen [Mass/volume] in Serum or PlasmaOrdered By: James De on 03-03-2024 Urea nitrogen [Mass/Vol] 8 mg/dL 7 [facility] Urine appearanceOrdered By: Nish Davidson on 03-03-2024 Appearance (U) Clear Clear [facility] Urobilinogen Test strip (U) [Mass/Vol]Ordered By: Nish Davidson on 03-03-2024 Urobilinogen (U) [Mass/Vol] Normal mg/dL Normal [facility] WBC Auto (Bld) [#/Vol]Ordere d By: James De on 03-03-2024 WBC (Bld) [#/Vol] 9.0 10*3/uL 4.1-10.5 [facility] pH Test strip (U)Ordered By: Nish Davidson on 03-03-2024 pH (U) 6.0 [pH] 5.0-9.0 [facility] Surgical Pathologyon 024 Surgical Pathology Normal [facility] Comment on above: Result Comment: [facility] [address] [place] [address] Surgical Pathology Consultation Patient Name:CHAI ARNOLD:1970 (Age: 53)Gender:MTaken:02/17/2024eported:02/22/2024hysician(s):Jennyfer Augustin MD ([phone])Copy To: Rec. #:[id number]: #[id number] Final Pathologic Diagnosis 1. Colon polyp 55cm: Hyperplastic polyp. 2. Colon polyp 35cm: Tubular adenoma. Report Electronically Signed Out 02/22/2024Keren Bee MD Interpretation performed at [facility], [address] [facility] [address], License number: [id number]. Clinical History Change in bowel habits. Gross Description 1. Received in formalin labeled, CATALINA, 55 cm is a mccray-richardson 0.3 cm soft tissue.. The specimen is filtered and entirely submitted in a single cassette. (1, ns, [id number], m8) SM 2. Received in formalin labeled, SAUMYAFTZ, 35 cm is a pale richardson 0.3 cm the specimen is filtered and entirely submitted in a single cassette. (1, ns, [id number], m8) slm/02/20/2024GR Specimen(s) Received 1: Colon polyp 55cm 2: Colon polyp 35cm Fee Codes(s): 1; 37951 2; 90913 Alanine aminotransferase [En zymatic activity/volume] in Serum or PlasmaOrdered By: Jennyfer Winkler on 01-29-2024 ALT [Catalytic activity/Vol] 24 U/L 7-52 [facility] Albumin [Mass/volume] in Ser um or Plasma by Bromocresol green (BCG) dye binding methoOrdered By: Jennyfer Winkler on 01-29-2024 Albumin BCG dye [Mass/Vol] 4.9 g/dL 3.5-5.7 [facility] Alkaline phosphatase [Enzyma tic activity/volume] in Serum or PlasmaOrdered By: Jennyfer Winkler on 01-29-2024 ALP [Catalytic activity/Vol] 96 U/L 34-104 [facility] Amylase [Enzymatic activity/ volume] in Serum or PlasmaOrdered By: Jennyfer Winkler on 01-29-2024 Amylase [Catalytic activity/Vol] 47 U/L 29-103 [facility] Aspartate aminotransferase [ Enzymatic activity/volume] in Serum or PlasmaOrdered By: Jennyfer Winkler on 01-29-2024 AST [Catalytic activity/Vol] 21 U/L 13-39 [facility] Basophils Auto (Bld) [#/Vol] Ordered By: Jennyfer Winkler on 01-29-2024 Basophils (Bld) [#/Vol] N/A [facility] Basophils/100 WBC Auto (Bld) Ordered By: Jennyfer Winkler on 01-29-2024 Basophils/100 WBC (Bld) N/A [facility] Bilirubin Test strip Ql (U)O rdered By: Jennyfer Winkler on 01-29-2024 Bilirubin Ql (U) Negative Negative [facility] Bilirubin.direct [Mass/volum e] in Serum or PlasmaOrdered By: Jennyfer Winkler on 01-29-2024 Bilirubin.direct [Mass/Vol] 0.10 mg/dL 0.03-0.18 [facility] Bilirubin.total [Mass/volume ] in Serum or PlasmaOrdered By: Jennyfer Winkler on 01-29-2024 Bilirubin [Mass/Vol] 0.8 mg/dL 0.3-1.0 [facility] Calcium [Mass/volume] in Ser um or PlasmaOrdered By: Jennyfer Winkler on 01-29-2024 Calcium [Mass/Vol] 10.2 mg/dL 8.6-10.3 [facility] Carbon dioxide, total [Moles /volume] in Serum or PlasmaOrdered By: Jennyfer Winkler on 01-29-2024 CO2 [Moles/Vol] 26.4 mmol/L 21.0-31.0 [facility] Chloride [Moles/volume] in S dereje or PlasmaOrdered By: Jennyfer Winkelr on 01-29-2024 Chloride [Moles/Vol] 98 mmol/L 98-107 [facility] Color Auto (U)Ordered By: Ella Winkler on 01-29-2024 Color (U) Colorless Yellow [facility] Creatinine [Mass/volume] in Serum or PlasmaOrdered By: Jennyfer Winkler on 01-29-2024 Creatinine [Mass/Vol] 1.07 mg/dL 0.70-1.30 [facility] Eosinophils Auto (Bld) [#/Vo l]Ordered By: Jennyfer Winkler on 01-29-2024 Eosinophils (Bld) [#/Vol] N/A [facility] Eosinophils/100 WBC Auto (Bl d)Ordered By: Jennyfer Winkler on 01-29-2024 Eosinophils/100 WBC (Bld) N/A [facility] Eosinophils/100 WBC Manual c nt (Bld)Ordered By: Jennyfer Winkler on 01-29-2024 Eosinophils/100 WBC (Bld) 5 % High 1-3 [facility] Erythrocyte distribution wid th Auto (RBC) [Ratio]Ordered By: Jennyfer Winkler on 01-29-2024 Erythrocyte distribution width (RBC) [Ratio] 12.1 % 12.0-14.8 [facility] Giant platelets/100 leukocyt es [Ratio] in Blood by Manual countOrdered By: Jennyfer Winkler on 01-29-2024 Giant platelets/100 WBC Manual cnt (Bld) [Ratio] 1 /100{WBC} [facility] Globulin Calc (S) [Mass/Vol] Ordered By: Jennyfer Winkler on 01-29-2024 Globulin (S) [Mass/Vol] 3.1 g/dL F [facility] Glucose [Mass/volume] in Ser um or PlasmaOrdered By: Jennyfer Winkler on 01-29-2024 Glucose [Mass/Vol] 103 mg/dL High 70-100 [facility] Comment on above: ADA recommended refe rence rangeRandom Glucose Reference Range is dependent on time and content of last meal. Glucose of more than 200 mg/dL in a nonstressed, ambulatory subject supports the diagnosis of Diabetes Mellitus. Glucose [Mass/volume] in Uri ne by Test stripOrdered By: Jennyfer Winkler on 01-29-2024 Glucose Test strip (U) [Mass/Vol] Normal mg/dL Normal [facility] Hematocrit Auto (Bld) [Volum e fraction]Ordered By: Jennyfer Winkler on 01-29-2024 Hematocrit (Bld) [Volume fraction] 54.1 % High 38.8-50.0 [facility] Hemoglobin Test strip Ql (U) Ordered By: Jennyfer Winkler on 01-29-2024 Hemoglobin Ql (U) Negative Negative [facility] Hemoglobin [Mass/volume] in BloodOrdered By: Jennyfer Winkler on 01-29-2024 Hemoglobin (Bld) [Mass/Vol] 18.9 g/dL High 13.0-17.0 [facility] Ketones Test strip Ql (U)Ord ered By: Jennyfer Winkler on 01-29-2024 Ketones Ql (U) Negative Negative [facility] Leukocyte esterase [Presence ] in Urine by Test stripOrdered By: Jennyfer Winkler on 01-29-2024 Leukocyte esterase Test strip Ql (U) Negative Negative [facility] Leukocytes [#/volume] correc ernst for nucleated erythrocytes in Blood by Automated counOrdered By: Jennyfer Winkler on 01-29-2024 WBC corrected for nucl RBC Auto (Bld) [#/Vol] 6.8 10*3/uL 4.1-10.5 [facility] Lipase [Enzymatic activity/v olume] in Serum or PlasmaOrdered By: Jennyfer Winkler on 01-29-2024 Lipase [Catalytic activity/Vol] 29.0 U/L 11.0-82.0 [facility] Lymphocytes Auto (Bld) [#/Vo l]Ordered By: Jennyfer Winkler on 01-29-2024 Lymphocytes (Bld) [#/Vol] N/A [facility] Lymphocytes/100 WBC Auto (Bl d)Ordered By: Jennyfer Winkler on 01-29-2024 Lymphocytes/100 WBC (Bld) N/A [facility] Lymphocytes/100 WBC Manual c nt (Bld)Ordered By: Jennyfer Winkler on 01-29-2024 Lymphocytes/100 WBC (Bld) 28 % 18-42 [facility] MCH Auto (RBC) [Entitic mass ]Ordered By: Jennyfer Winkler on 01-29-2024 MCH (RBC) [Entitic mass] 32.4 pg 27.5-35.2 [facility] MCHC Auto (RBC) [Mass/Vol]Or dered By: Jennyfer Winkler on 01-29-2024 MCHC (RBC) [Mass/Vol] 35.0 g/dL 32.5-35.6 [facility] MCV Auto (RBC) [Entitic vol] Ordered By: Jennyfer Winkler on 01-29-2024 MCV (RBC) [Entitic vol] 92.7 fL 83.5-101 [facility] Monocyte distribution width [Entitic volume] in Blood by AutomatedOrdered By: Jennyfer Winkler on 01-29-2024 Monocyte distribution width Auto (Bld) [Entitic vol] 18.41 % 0.00-20.00 [facility] Monocytes Auto (Bld) [#/Vol] Ordered By: Jennyfer Winkler on 01-29-2024 Monocytes (Bld) [#/Vol] N/A [facility] Monocytes/100 WBC Auto (Bld) Ordered By: Jennyfer Winkler on 01-29-2024 Monocytes/100 WBC (Bld) N/A [facility] Monocytes/100 WBC Manual cnt (Bld)Ordered By: Jennyfer Winkler on 01-29-2024 Monocytes/100 WBC (Bld) 4 % 2-11 [facility] Neutrophils Auto (Bld) [#/Vo l]Ordered By: Jennyfer Winkler on 01-29-2024 Neutrophils (Bld) [#/Vol] N/A [facility] Neutrophils/100 WBC Auto (Bl d)Ordered By: Jennyfer Winkler on 01-29-2024 Neutrophils/100 WBC (Bld) N/A [facility] Nitrite Test strip Ql (U)Ord ered By: Jennyfer Winkler on 01-29-2024 Nitrite Ql (U) Negative Negative [facility] No Panel InformationOrdered By: Jennyfer Winkler on 01-29-2024 Estimated GFR (CKD-EPI) > 60.0 mL/Min [facility] Creatinine Clearance (Chem 83.32 [facility] Nucleated erythrocytes [Pres ence] in Blood by Automated countOrdered By: Jennyfer Winkler on 01-29-2024 Nucleated RBC Auto Ql (Bld) N/A [facility] Platelet adequacy [Presence] in Blood by Light microscopyOrdered By: Jennyfer Winkler on 01-29-2024 Platelets LM Ql (Bld) Normal Normal [facility] Platelet mean volume Auto (B ld) [Entitic vol]Ordered By: Jennyfer Winkler on 01-29-2024 Platelet mean volume (Bld) [Entitic vol] 8.1 fL 6.6-10.1 [facility] Platelet morphology finding [Identifier] in BloodOrdered By: Jennyfer Winkler on 01-29-2024 Platelet morphology finding Nom (Bld) Normal Normal [facility] Platelets Auto (Bld) [#/Vol] Ordered By: Jennyfer Winkler on 01-29-2024 Platelets (Bld) [#/Vol] 245 10*3/uL 150-450 [facility] Potassium [Moles/volume] in Serum or PlasmaOrdered By: Jennyfer Winkler on 01-29-2024 Potassium [Moles/Vol] 3.9 mmol/L 3.5-5.1 [facility] Protein Test strip (U) [Mass /Vol]Ordered By: Jennyfer Winkler on 01-29-2024 Protein (U) [Mass/Vol] Negative Negative [facility] Protein [Mass/volume] in Ser um or PlasmaOrdered By: Jennyfer Winkler on 01-29-2024 Protein [Mass/Vol] 8.0 g/dL 6.4-8.9 [facility] RBC Auto (Bld) [#/Vol]Ordere d By: Jennyfer Winkler on 01-29-2024 RBC (Bld) [#/Vol] 5.83 10*6/uL High 3.90-5.60 [facility] RBC morphologyOrdered By: Ella Winkler on 01-29-2024 RBC morphology finding Nom (Bld) Normal Normal [facility] Segmented neutrophils/100 WB C Manual cnt (Bld)Ordered By: Jennyfer iWnkler on 01-29-2024 Segmented neutrophils/100 WBC (Bld) 58 % 50-70 [facility] Serum or plasma albumin/glob ulin mass ratioOrdered By: Jennyfer Winkler on 01-29-2024 Albumin/Globulin [Mass ratio] 1.6 {ratio} [facility] Serum or plasma anion gap de terminationOrdered By: Jennyfer Winkler on 01-29-2024 Anion gap [Moles/Vol] 10.5 mmol/L 6.0-15.0 [facility] Serum or plasma non-glucuron idated bilirubin measurement (mass/volume)Ordered By: Jennyfer Winkler on 01-29-2024 Bilirubin.indirect [Mass/Vol] 0.7 mg/dL [facility] Sodium [Moles/volume] in Ser um or PlasmaOrdered By: Jennyfer Winkler on 01-29-2024 Sodium [Moles/Vol] 131 mmol/L Low 136-145 [facility] Specific gravity Test strip (U) [Rel density]Ordered By: Jennyfer Winkler on 01-29-2024 Specific gravity (U) [Rel density] 1.003 1.001-1.030 [facility] Urea nitrogen [Mass/volume] in Serum or PlasmaOrdered By: Jennyfer Winkler on 01-29-2024 Urea nitrogen [Mass/Vol] 6 mg/dL Low 7-25 [facility] Urine appearanceOrdered By: Jennyfer Winkler on 01-29-2024 Appearance (U) Clear Clear [facility] Urobilinogen Test strip (U) [Mass/Vol]Ordered By: Jennyfer Winkler on 01-29-2024 Urobilinogen (U) [Mass/Vol] Normal mg/dL Normal [facility] Variant lymphocytes/100 WBC Manual cnt (Bld)Ordered By: Jennyfer Winkler on 01-29-2024 Variant lymphocytes/100 WBC (Bld) 6 % 0-12 [facility] WBC Auto (Bld) [#/Vol]Ordere d By: Jennyfer Winkler on 01-29-2024 WBC (Bld) [#/Vol] 6.8 10*3/uL 4.1-10.5 [facility] pH Test strip (U)Ordered By: Jennyfer Winkler on 01-29-2024 pH (U) 7.5 [pH] 5.0-9.0 [facility] CBC AUTO DIFFon 03-26-2022 BASO # 0.1 103/ul Normal 0.0-0.1 [facility] Comment on above: Performed By: #### C BC #### [facility] [address] [address] [address] Pravin Travis Basophils/100 WBC (Bld) 0.7 % Normal 0.2-2.0 [facility] Comment on above: Performed By: #### C BC #### [facility] [address] [place] [address] Dr. Pravin Travis EO # 0.6 103/ul Normal 0.0-0.7 [facility] Comment on above: Performed By: #### C BC #### [facility] [address] [place] [address] Dr. Pravin Travis Eosinophils/100 WBC (Bld) 7.4 % Critically high 0.9-7.0 [facility] Comment on above: Performed By: #### C BC #### [facility] [address] [place] [address] Dr. Pravin Travis Erythrocyte distribution width (RBC) [Ratio] 12.3 % Normal 11.0-15.0 [facility] Comment on above: Performed By: #### C BC #### [facility] [address] [place] [address] Dr. Pravin Travis Hematocrit (Bld) [Volume fraction] 47.2 % Normal 42.0-54.0 [facility] Comment on above: Performed By: #### C BC #### [facility] [address] [place] [address] Dr. Pravin Travis Hemoglobin (Bld) [Mass/Vol] 16.2 g/dL Normal 14.0-18.0 [facility] Comment on above: Performed By: #### C BC #### [facility] [address] [place] [address] Dr. Pravin Travis IG # 0.03 10e3/ul Normal 0.00-0.03 [facility] Comment on above: Performed By: #### C BC #### [facility] [address] [place] [address] Dr. Pravin Travis IG % 0.4 % Normal 0.0-0.5 [facility] Comment on above: Performed By: #### C BC #### [facility] [address] [place] [address] Dr. Pravin Travis LYMPH # 2.1 103/ul Normal 1.2-3.8 [facility] Comment on above: Performed By: #### C BC #### [facility] [address] [place] [address] Dr. Pravin Travis Lymphocytes/100 WBC (Bld) 24.3 % Normal 20.5-60.0 [facility] Comment on above: Performed By: #### C BC #### [facility] [address] [place] [address] Dr. Pravin Travis MANUAL DIFF REQ NO Normal [facility] Comment on above: Performed By: #### C BC #### [facility] [address] [place] [address] Dr. Pravin Travis MCH (RBC) [Entitic mass] 32.6 pg Normal 25.9-34.0 [facility] Comment on above: Performed By: #### C BC #### [facility] [address] [place] [address] Dr. Pravin Travis MCHC (RBC) [Mass/Vol] 34.3 g/dL Normal 29.9-35.2 [facility] Comment on above: Performed By: #### C BC #### [facility] [address] [place] [address] Dr. Pravin Travis MCV (RBC) [Entitic vol] 95.0 fL Critically high 80.0-94 .0 [facility] Comment on above: Performed By: #### C BC #### [facility] [address] [place] [address] Dr. Pravin Travis MONO # 0.8 103/ul Normal 0.3-0.8 [facility] Comment on above: Performed By: #### C BC #### [facility] [address] [place] [address] Dr. Pravin Travis Monocytes/100 WBC (Bld) 9.7 % Normal 1.7-12.0 [facility] Comment on above: Performed By: #### C BC #### [facility] [address] [place] [address] Dr. Pravin Travis NEUT # 4.9 103/ul Normal 1.4-6.5 [facility] Comment on above: Performed By: #### C BC #### [facility] [address] [place] [address] Dr. Pravin Travis Neutrophils/100 WBC (Bld) 57.5 % Normal 43.0-75.0 [facility] Comment on above: Performed By: #### C BC #### [facility] [address] [place] [address] Dr. Pravin Travis Platelet mean volume (Bld) [Entitic vol] 10.4 fL Normal 9.5-13.5 [facility] Comment on above: Performed By: #### C BC #### [facility] [address] [place] [address] Dr. Pravin Travis PLT 215 103/ul Normal 150-450 [facility] Comment on above: Performed By: #### C BC #### [facility] [address] [place] [address] Dr. Pravin Travis RBC 4.97 106/ul Normal 4.70-6.10 [facility] Comment on above: Performed By: #### C BC #### [facility] [address] [place] [address] Dr. Pravin Travis WBC 8.6 103/ul Normal 4.0-11.0 [facility] Comment on above: Performed By: #### C BC #### [facility] [address] [place] [address] ABD/PELV W CONon [...] by: ALANA MORROW Date: 2022-03-26 01:45 Normal [facility] ER URINE PROFILEon 2 Bilirubin Ql (U) Negative Normal NEGATIVE [facility] Comment on above: Performed By: #### E RUR #### [facility] [address] [place] [address] Dr. Pravin Travis Clarity (U) SL CLOUDY Abnormal CLEAR [facility] Comment on above: Performed By: #### E RUR #### [facility] [address] [place] [address] Dr. Pravin Travis Color (U) LT. YELLOW Normal YELLOW [facility] Comment on above: Performed By: #### E RUR #### [facility] [address] [place] [address] Dr. Pravin Travis ERUAHMayi A micrscopic examination will be performed if indicated. Normal [facility] Comment on above: Performed By: #### E RUR #### [facility] [address] [place] [address] Dr. Pravin Travis Glucose Ql (U) Negative Normal NEGATIVE [facility] Comment on above: Performed By: #### E RUR #### [facility] [address] [place] [address] Dr. Pravin Travis Hemoglobin Ql (U) Negative Normal NEGATIVE [facility] Comment on above: Performed By: #### E RUR #### [facility] [address] [place] [address] Dr. Pravin Travis Ketones Ql (U) Negative Normal NEGATIVE [facility] Comment on above: Performed By: #### E RUR #### [facility] [address] [place] [address] Dr. Pravin Travis LEUKOCYTES Negative Normal NEGATIVE [facility] Comment on above: Performed By: #### E RUR #### [facility] [address] [place] [address] Dr. Pravin Travis Nitrite Ql (U) Negative Normal NEGATIVE [facility] Comment on above: Performed By: #### E RUR #### [facility] [address] [place] [address] Dr. Pravin Travis pH (U) 7.5 [pH] Normal 5-9 [facility] Comment on above: Performed By: #### E RUR #### [facility] [address] [place] [address] Dr. Pravin Travis SPEC GRAVITY 1.015 Normal 1.005-<=1.02 5 [facility] Comment on above: Performed By: #### E RUR #### [facility] [address] [place] [address] Dr. Pravin Travis UA PROTEIN Negative Normal NEGATIVE/ TRACE [facility] Comment on above: Performed By: #### E RUR #### [facility] [address] [place] [address] Dr. Pravin Travis UR MICRO IND NOT INDICATED Normal [facility] Comment on above: Performed By: #### E RUR #### [facility] [address] [place] [address] Dr. Pravin Travis Urobilinogen Qn (U) 0.2 {Katie'U}/dL Normal 0.2 - 1. 0 [facility] Comment on above: Performed By: #### E RUR #### [facility] [address] [address] [address] Pravin Travis PROF 14(COMP METB)on 022 Albumin [Mass/Vol] 4.3 g/dL Normal 3.4-5.0 [facility] Comment on above: Performed By: #### C MP #### [facility] [address] [address] [address] Pravin Travis Albumin/Globulin [Mass ratio] 1.3 {ratio} Normal [facility] Comment on above: Performed By: #### C MP #### [facility] [address] [place] [address] Dr. Pravin Travis ALP [Catalytic activity/Vol] 92 U/L Normal 46-116 [facility] Comment on above: Performed By: #### C MP #### [facility] [address] [place] [address] Dr. Pravin Travis ALT [Catalytic activity/Vol] 31 U/L Normal 16-63 [facility] Comment on above: Performed By: #### C MP #### [facility] [address] [place] [address] Dr. Pravin Travis Anion gap [Moles/Vol] 10.9 mmol/L Normal [facility] Comment on above: Performed By: #### C MP #### [facility] [address] [place] [address] Dr. Pravin Travis AST [Catalytic activity/Vol] 31 U/L Normal 15-37 [facility] Comment on above: Performed By: #### C MP #### [facility] [address] [place] [address] Dr. Pravin Travis Bilirubin [Mass/Vol] 0.5 mg/dL Normal 0.2-1.0 [facility] Comment on above: Performed By: #### C MP #### [facility] [address] [place] [address] Dr. Pravin Travis Calcium [Mass/Vol] 9.3 mg/dL Normal 8.5-10.1 [facility] Comment on above: Performed By: #### C MP #### [facility] [address] [address] [address] Pravin Travis Chloride [Moles/Vol] 103 mmol/L Normal 98-107 [facility] Comment on above: Performed By: #### C MP #### [facility] [address] [place] [address] Dr. Pravin Travis CO2 [Moles/Vol] 29.8 mmol/L Normal 21.0-32.0 [facility] Comment on above: Performed By: #### C MP #### [facility] [address] [place] [address] Dr. Pravin Travis Creatinine [Mass/Vol] 1.22 mg/dL Normal 0.70-1.30 [facility] Comment on above: Performed By: #### C MP #### [facility] [address] [place] [address] Dr. Pravin Travis EGFR-AF MICRONESIAN >60 Normal >=60 [facility] Comment on above: Performed By: #### C MP #### [facility] [address] [place] [address] Dr. Pravin Travis EGFR-NON AF MICRONESIAN >60 Normal >=60 [facility] Comment on above: Performed By: #### C MP #### [facility] [address] [place] [address] Dr. Pravin Travis Globulin (S) [Mass/Vol] 3.4 g/dL Normal [facility] Comment on above: Performed By: #### C MP #### [facility] [address] [address] [address] Praivn Travis Glucose [Mass/Vol] 91 mg/dL Normal 74-106 [facility] Comment on above: Performed By: #### C MP #### [facility] [address] [place] [address] Dr. Pravin Travis Potassium [Moles/Vol] 3.7 mmol/L Normal 3.5-5.1 [facility] Comment on above: Performed By: #### C MP #### [facility] [address] [place] [address] Dr. Pravin Travis Protein [Mass/Vol] 7.7 g/dL Normal 6.4-8.2 [facility] Comment on above: Performed By: #### C MP #### [facility] [address] [address] [address] Pravin Travis Sodium [Moles/Vol] 140 mmol/L Normal 136-145 [facility] Comment on above: Performed By: #### C MP #### [facility] [address] [address] [address] Pravin Travis Urea nitrogen [Mass/Vol] 11.0 mg/dL Normal 7.0-18.0 [facility] Comment on above: Performed By: #### C MP #### [facility] [address] [place] [address] Dr. Pravin Travis Urea nitrogen/Creatinine [Mass ratio] 9.0 mg/mg Normal [facility] Comment on above: Performed By: #### C MP #### [facility] [address] [place] [address] Dr. Pravin Travis COVID Quick Testingon 2021 Result Positive [facility] Other COVID Quick Testingon 2020 Result Negative [facility] Other Quick Fluon 08-11-2021 FLUAV Ab CF (S) [Titer] Negative [employer] Other FLUBV Ab CF (S) [Titer] Negative [employer] Other Vital Signs Date Time Vital Sign Value Performing Clinician Facility 03-19-2025 16:30-0400 Diastolic blood pressure 113 mm[Hg] Cisco Furlong DO Work Phone: [facility] 03-19-2025 16:30-0400 Heart rate 76 /min [employer] DO Work Phone: [facility] 03-19-2025 16:30-0400 Respiratory rate 16 /min [email or web address] DO Work Phone: [facility] 03-19-2025 16:30-0400 SaO2% (BldA) [Mass fraction] 97 % Cisco Furlong DO Work Phone: [facility] 03-19-2025 16:30-0400 Systolic blood pressure 143 mm[Hg] Cisco Furlong DO Work Phone: [facility] 03-19-2025 16:00-0400 Body temperature 96.8 [degF] Cisco Furlong DO Work Phone: [facility] 03-19-2025 11:36-0400 Body height 172.72 cm Cisco Furlong DO Work Phone: [facility] 03-19-2025 11:36-0400 Body weight 90.9 kg Cisco Furlong DO Work Phone: [facility] 02-28-2025 12:24-0400 Body height 175.3 cm Lydia Sankovic PA-C Work Phone: [facility] 02-28-2025 12:24-0400 Body mass index (BMI) [Ratio] 29.53 kg/m2 Lydia Sankovic PA-C Work Phone: [facility] 02-28-2025 12:24-0400 Body temperature 97 [degF] Lydia Sankovic PA-C Work Phone: [facility] 02-28-2025 12:24-0400 Body weight 90.72 kg Lydia Sankovic PA-C Work Phone: [facility] 02-28-2025 12:24-0400 Diastolic blood pressure 93 mm[Hg] Lydia Sankovic PA-C Work Phone: [facility] 02-28-2025 12:24-0400 Heart rate 76 /min Lydia Sankovic PA-C Work Phone: [facility] 02-28-2025 12:24-0400 SaO2% (BldA) [Mass fraction] 97 % Lydia Sankovic PA-C Work Phone: [facility] 02-28-2025 12:24-0400 Systolic blood pressure 141 mm[Hg] Lydia Noelle ALAN-Remberto Work Phone: [facility] 02-18-2025 13:45-0400 Body height 172.72 cm Cisco Furlong DO Work Phone: [facility] 02-18-2025 13:45-0400 Body mass index (BMI) [Ratio] 28.8 kg/m2 Cisco Furlong DO Work Phone: [facility] 02-18-2025 13:45-0400 Body weight 86.18 kg Cisco Furlong DO Work Phone: [facility] 01-09-2025 12:53-0400 Diastolic blood pressure 109 mm[Hg] Mohamad Mouchli [facility] 01-09-2025 12:53-0400 Mean blood pressure 131 mm[Hg] Mohamad Mouchli [facility] 01-09-2025 12:53-0400 Systolic blood pressure 174 mm[Hg] Mohamad Mouchli [facility] 01-09-2025 12:43-0400 Blood Pressure Location Mohamad Mouchli [facility] 01-09-2025 12:43-0400 Diastolic blood pressure 117 mm[Hg] Mohamad Mouchli [facility] 01-09-2025 12:43-0400 Heart rate 80 /min Mohamad Mouchli [facility] 01-09-2025 12:43-0400 Systolic blood pressure 179 mm[Hg] Mohamad Mouchli [facility] 12-10-2024 13:07-0400 Body height 172.7 cm Cisco Furlong DO Work Phone: [facility] 12-10-2024 13:07-0400 Body mass index (BMI) [Ratio] 29.47 kg/m2 Cisco Furlong DO Work Phone: [facility] 12-10-2024 13:07-0400 Body temperature 98.4 [degF] Cisco Furlong DO Work Phone: [facility] 12-10-2024 13:07-0400 Body weight 87.91 kg Cisco Furlong DO Work Phone: [facility] 12-10-2024 13:07-0400 Diastolic blood pressure 90 mm[Hg] Cisco Furlong DO Work Phone: [facility] 12-10-2024 13:07-0400 Heart rate 102 /min Cisco Furlong DO Work Phone: [facility] 12-10-2024 13:07-0400 Respiratory rate 18 /min Cisco Furlong DO Work Phone: [facility] 12-10-2024 13:07-0400 SaO2% (BldA) [Mass fraction] 97 % Cisco Furlong DO Work Phone: [facility] 12-10-2024 13:07-0400 Systolic blood pressure 140 mm[Hg] Cisco Furlong DO Work Phone: [facility] 09-11-2024 14:23-0500 Body height 172.7 cm Cisco Furlong DO Work Phone: [facility] 09-11-2024 14:23-0500 Body mass index (BMI) [Ratio] 28.89 kg/m2 Cisco Furlong DO Work Phone: [facility] 09-11-2024 14:23-0500 Body temperature 97.9 [degF] Cisco Furlong DO Work Phone: [facility] [employer] [facility] 09-11-2024 14:23-0500 Body weight 86.18 kg Cisco Furlong DO Work Phone: [facility] [employer] [facility] 09-11-2024 14:23-0500 Diastolic blood pressure 90 mm[Hg] Cisco Furlong DO Work Phone: [facility] [employer] [facility] 09-11-2024 14:23-0500 Heart rate 105 /min Cisco Furlong DO Work Phone: [facility] [employer] [facility] 09-11-2024 14:23-0500 Respiratory rate 20 /min Cisco Furlong DO Work Phone: [facility] 09-11-2024 14:23-0500 SaO2% (BldA) [Mass fraction] 99 % Cisco Furlong DO Work Phone: [facility] 09-11-2024 14:23-0500 Systolic blood pressure 140 mm[Hg] Cisco Furlong DO Work Phone: [facility] 03-15-2024 16:08-0400 Body height 172.7 cm Cisco Furlong DO Work Phone: [facility] 03-15-2024 16:08-0400 Body mass index (BMI) [Ratio] 27.79 kg/m2 Cisco Furlong DO Work Phone: [facility] 03-15-2024 16:08-0400 Body temperature 97.7 [degF] Cisco Furlong DO Work Phone: [facility] 03-15-2024 16:08-0400 Body weight 82.92 kg Cisco Furlong DO Work Phone: [facility] 03-15-2024 16:08-0400 Diastolic blood pressure 70 mm[Hg] Cisco Furlong DO Work Phone: [facility] 03-15-2024 16:08-0400 Heart rate 79 /min Cisco Furlong DO Work Phone: [facility] 03-15-2024 16:08-0400 SaO2% (BldA) [Mass fraction] 97 % Cisco Furlong DO Work Phone: [facility] 03-15-2024 16:08-0400 Systolic blood pressure 120 mm[Hg] Cisco Furlong DO Work Phone: [facility] 03-03-2024 14:00-0400 Diastolic blood pressure 95 mm[Hg] DO Cisco Furlong Work Phone: [facility] 03-03-2024 14:00-0400 Heart rate 79 /min DO Cisco Furlong Work Phone: [facility] 03-03-2024 14:00-0400 Respiratory rate 18 /min DO Cisco Furlong Work Phone: [facility] 03-03-2024 14:00-0400 SaO2% (BldA) [Mass fraction] 95 % DO Cisco Furlong Work Phone: [facility] 03-03-2024 14:00-0400 Systolic blood pressure 147 mm[Hg] DO Cisco Furlong Work Phone: [facility] 03-03-2024 11:20-0400 Body temperature 98.2 [degF] DO Cisco Furlong Work Phone: [facility] 03-03-2024 11:18-0400 Body height 172.72 cm DO Cisco Furlong Work Phone: [facility] 03-03-2024 11:18-0400 Body weight 80.65 kg DO Cisco Furlong Work Phone: [facility] 02-02-2024 11:29-0400 Body temperature 98.6 [degF] Didi Orzech [facility] 02-02-2024 11:29-0400 Diastolic blood pressure 81 mm[Hg] Didi Orzech [facility] 02-02-2024 11:29-0400 Heart rate 77 /min Didi Orzech [facility] 02-02-2024 11:29-0400 Respiratory rate 16 /min Didi Orzech [facility] 02-02-2024 11:29-0400 Systolic blood pressure 136 mm[Hg] Didi Orzech [facility] 01-30-2024 01:11-0400 Heart rate 159 /min DO Cisco Furlong Work Phone: [facility] 01-30-2024 00:30-0400 Respiratory rate 22 /min DO Cisco Furlong Work Phone: [facility] 01-30-2024 00:30-0400 SaO2% (BldA) [Mass fraction] 97 % DO Cisco Furlong Work Phone: [facility] 01-29-2024 23:38-0400 Diastolic blood pressure 95 mm[Hg] DO Cisco Furlong Work Phone: [facility] 01-29-2024 23:38-0400 Systolic blood pressure 136 mm[Hg] DO Cisco Furlong Work Phone: [facility] 01-29-2024 22:45-0400 Body height 172.72 cm DO Cisco Furlong Work Phone: [facility] 01-29-2024 22:45-0400 Body weight 86.2 kg DO Cisco Furlong Work Phone: [facility] 01-29-2024 22:44-0400 Body temperature 98.3 [degF] DO Cisco Bonilla Work Phone: [facility] 12-09-2023 08:47-0400 Body height 172.7 cm Michelle Francis SILK EXAMINER-PHARMACY TECHNOLOGIST Work Phone: [facility] [employer] 12-09-2023 08:47-0400 Body mass index (BMI) [Ratio] 30.08 kg/m2 Michelle Tito SILK EXAMINER-PHARMACY TECHNOLOGIST Work Phone: [employer] 12-09-2023 08:47-0400 Body temperature 98.29 [degF] Michelle Francis SILK EXAMINER-PHARMACY TECHNOLOGIST Work Phone: [facility] 12-09-2023 08:47-0400 Body weight 89.72 kg Michelle Tito SILK EXAMINER-PHARMACY TECHNOLOGIST [facility] 12-09-2023 08:47-0400 Diastolic blood pressure 86 mm[Hg] Michelle Tito SILK EXAMINER-PHARMACY TECHNOLOGIST Work Phone: [facility] 12-09-2023 08:47-0400 Heart rate 82 /min Michelle Tito SILK EXAMINER-PHARMACY TECHNOLOGIST [facility] Phone: [facility] 12-09-2023 08:47-0400 Respiratory rate 18 /min Michellenisha Francis SILK EXAMINER-PHARMACY TECHNOLOGIST Work Phone: [facility] 12-09-2023 08:47-0400 SaO2% (BldA) [Mass fraction] 96 % Michelle Tito SILK EXAMINER-PHARMACY TECHNOLOGIST Work Phone: [facility] 12-09-2023 08:47-0400 Systolic blood pressure 120 mm[Hg] Michelle Tito SILK EXAMINER-PHARMACY TECHNOLOGIST Work Phone: [facility] 09-01-2021 13:30-0500 Body height 172.72 cm Tawnya Andre Other [facility] Other 09-01-2021 13:30-0500 Body mass index (BMI) [Ratio] 31.93 kg/m2 Tawnya Andre Other [facility] Other 09-01-2021 13:30-0500 Body temperature 97.4 [degF] Tawnya Andre Other [facility] Other 09-01-2021 13:30-0500 Body weight 95.26 kg Tawnya Andre Other [facility] Other 09-01-2021 13:30-0500 Respiratory rate 18 /min Tawnya Andre Other [facility] Other 09-01-2021 13:30-0500 SaO2% (BldA) [Mass fraction] 98 % Tawnya Andre Other [facility] Other 08-11-2021 12:00-0500 Body height 172.72 cm Mary Christine Other [facility] Other 08-11-2021 12:00-0500 Body mass index (BMI) [Ratio] 31.93 kg/m2 Mary Christine Other [facility] Other 08-11-2021 12:00-0500 Body temperature 96.9 [degF] Mary King Other [facility] Other 08-11-2021 12:00-0500 Body weight 95.26 kg Mary Christine Other [facility] Other 08-11-2021 12:00-0500 Respiratory rate 18 /min Marygunner King Other [facility] Other 08-11-2021 12:00-0500 SaO2% (BldA) [Mass fraction] 96 % Mary Christine Other [facility] Other Encounters Encounter Date Encounter Type Care Provider Facility Start: 04-23-2025 End: 04-23-2025 ambulatory Vivian Brady Facility:[facility] Start: 04-23-2025 End: 04-23-2025 Patient encounter procedure Vivian Brady [facility] Start: 04-08-2025 End: 04-08-2025 ambulatory Cisco Bonilla DO Work Phone: [facility] Work Phone: Start: 04-08-2025 End: [...] Start: 04-02-2025 End: 04-02-2025 ambulatory LYDIA DUBOISJESSICA Facility:[facility] Start: 03-22-2025 End: 03-27-2025 Refill Cisco Thomason Furlong DO [facility] Phone: [facility] Comment on above: Anxiety Start: 03-19-2025 End: 03-19-2025 Admission to same day surgery center Ehsan Avina DO -[facility] [place] Start: 03-19-2025 End: 03-19-2025 ambulatory Cisco Furlong DO Work Phone: [facility] Work Phone: Start: 03-18-2025 End: 03-18-2025 Patient encounter procedure Ehsan Aivna DO -Pre-Surgical Testing Work Phone: Start: 03-18-2025 End: 03-18-2025 ambulatory Cisco Furlong DO Work Phone: [facility] Work Phone: Start: 03-18-2025 Encounter for preprocedural laboratory examination Ehsan Avina [facility] Start: 03-13-2025 End: 03-13-2025 ambulatory Cisco Furlong DO Work Phone: [facility] Work Phone: Start: 03-13-2025 End: 03-13-2025 Patient encounter procedure Ehsan Avina DO -[facility] Work Phone: Start: 03-13-2025 End: 03-13-2025 Patient encounter procedure Ehsan Avina DO -[facility] Start: 03-13-2025 End: 03-13-2025 ambulatory Cisco Furlong DO Work Phone: [facility] Work Phone: Start: 03-12-2025 Non-patient / Non-visit Ehsan alanis DO -[facility] Work Phone: Start: 03-07-2025 End: [...] Start: 02-28-2025 End: 02-28-2025 ambulatory FELIPE ARIAS Facility:[facility] Start: 02-18-2025 End: 02-18-2025 ambulatory Cisco Bonilla DO Work Phone: [facility] Work Phone: Start: 02-18-2025 End: 02-18-2025 Patient encounter procedure Ehsan Avina DO -[facility] Work Phone: Start: 02-11-2025 End: [...] Start: 01-24-2025 End: 01-24-2025 ambulatory [facility] Start: 01-24-2025 End: 01-24-2025 Patient encounter procedure Vivian Brady [facility] Start: 01-16-2025 End: 01-16-2025 Transcribe Orders Vivian Brady MD Work Phone: Referring Physician Comment on above: Constipation by outl et dysfunction (Primary Dx); Stress-related physiological response affecting medical condition Start: 01-09-2025 End: 01-09-2025 ambulatory Vivian Brady Facility:[facility] Start: 01-09-2025 End: 01-09-2025 Patient encounter procedure Vivian Brady [facility] Start: 12-31-2024 ambulatory Vivian Brady Facilit y:Satish Start: 12-31-2024 End: 12-31-2024 Telephone encounter Linda Marc CMA [facility] Start: 12-26-2024 End: 12-26-2024 Orders Only Cisco Bonilla DO Work Phone: [facility] Comment on above: Chronic idiopathic c onstipation (Primary Dx); Hepatitis C virus infection without hepatic coma, unspecified chronicity Start: 12-20-2024 End: 12-20-2024 Orders Only Cisco oBnilla DO Work Phone: [facility] [...] Family Medicine Start: 12-10-2024 End: 12-10-2024 ambulatory [facility] Start: 12-10-2024 Encounter for genera l adult medical examination without abnormal findings [facility] Start: 12-10-2024 End: 12-10-2024 Patient encounter status Cisco Bonilla DO Work Phone: [facility] [employer] Start: 12-10-2024 End: 12-10-2024 Periodic preventive med est patient 40-64yrs Cisco Bonilla DO Work Phone: [facility] Internal Medicine - Family Medicine Comment on above: Well adult exam (Marilynn lawson Dx); Anxiety; Overweight; Iron overload; Encounter for screening for malignant neoplasm of prostate; Ex-smoker; Hypogonadism in male; Severe episode of recurrent major depressive disorder, without psychotic features ([facility]); Irritable bowel syndrome with both constipation and diarrhea Start: 12-10-2024 End: 12-10-2024 ambulatory [facility] Start: 12-10-2024 Encounter for genera l adult medical examination without abnormal findings [facility] Start: 11-02-2024 End: 11-02-2024 Orders Only Cisco Bonilla DO Work Phone: [facility] - [facility] Start: 10-15-2024 End: 10-15-2024 [...] 05-15-2024 Emergency department patient visit CISCO BONILLA [facility] Start: 04-04-2024 End: 04-10-2024 Telephone encounter Cisco Bonilla DO Work Phone: [facility] Family Medicine Start: 04-03-2024 End: 04-03-2024 Patient encounter procedure Didi X Orzech [facility] Start: 03-16-2024 End: 03-16-2024 Orders Only [...] Start: 03-15-2024 End: 03-15-2024 ambulatory CISCOCHELSEA BONILLA [facility] Start: 03-14-2024 End: 03-14-2024 Orders Only Cisco Bonilla DO Work Phone: [facility] Start: 03-03-2024 End: 03-03-2024 Emergency department patient visit DO Cisco Bonilla Work Phone: [facility] Work Phone: Start: 02-20-2024 End: 02-20-2024 Orders Only Cisco Bonilla DO Work Phone: [facility] Start: 02-17-2024 End: 02-18-2024 Evaluation and management of inpatient JENNYFER AUGUSTIN [facility] Start: 02-13-2024 End: 02-15-2024 Telephone encounter [...] Orzech [facility] Start: 01-31-2024 End: 02-01-2024 Telephone encounter Barbara De La Torre CMA [facility] Start: 01-29-2024 End: 01-30-2024 Emergency department patient visit DO Cisco Carrillong Work Phone: [facility] Work Phone: Start: 12-09-2023 End: 12-09-2023 Office outpatient visit 15 minutes Michelle Francis SILK EXAMINER-[facility] Work Phone: [facility] - [facility] Comment on above: Irritable bowel synd chaitanya with constipation (Primary Dx); Gastroesophageal reflux disease, unspecified whether esophagitis present; 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 ([facility] Start: 03-26-2022 End: 03-26-[address] CISCO BONILLA Facility: Start: 09-01-2021 End: 09-01-2021 ambulatory Tawnya Andre Other [facility] Other Start: 09-01-2021 Office outpatient vi sit 15 minutes Tawnya Andre [facility] Start: 08-11-2021 End: 08-11-2021 ambulatory Mary King Other [facility] Other Start: 08-11-2021 Office outpatient vi sit 15 minutes Mary King [facility] Start: 08-30-2016 End: 08-31-2016 Ambulatory GRADY DHALIWAL Facility:[facility] Procedures Date Procedure Procedure Detail Performing Clinician Start: 03-19-2025 Open reduction of fr acture with internal fixation Cisco Carcamolong DO Work Phone: Start: 03-19-2025 X-ray of right foot Den nis Furlong DO Work Phone: Start: 03-13-2025 X-ray of right foot Den nis Furlong DO Work Phone: Start: 02-28-2025 ADULT [facility] Violette Maurer SILK EXAMINER.PHARMACY TECHNOLOGIST Work Phone: Start: 12-10-2024 Adult depression scr [...] Adult depression scr eening assessment Michelle Francis SILK EXAMINER-PHARMACY TECHNOLOGIST Work Phone: [facility] [employer] [facility] Plan of Treatment Date Care Activity Detail Author Start: 02-16-2034 Screening for malign ant neoplasm of colon Colonoscopy [facility] Start: 12-10-2029 Lipid panel Lipid Screening [facility] Start: 12-10-2029 Prostate specific antigen measurement Prostate Cancer Screening Discussion [facility] Start: 12-11-2027 Diabetes Screening Diabetes Screenin g [facility] Start: 12-10-2025 Administration of varicella zoster vaccine Zoster (Shingles) Vaccine (1 of 2) [facility] Comment on above: Postponed from 09/04 (Patient Refused) Start: 12-10-2025 Adult BMI Screening Adult BMI Screen ing [facility] Start: 12-10-2025 COVID-19 Vaccine ( season) COVID-19 Vaccine () [facility] Comment on above: Postponed from 04/22 (Patient Refused) Start: 12-10-2025 Depression Screening Depression Scre ening [facility] Start: 12-10-2025 Tobacco Screening Tobacco Screening [facility] Start: 09-11-2025 Adult BMI Screening Adult BMI Screen ing [facility] Start: 09-11-2025 Tobacco Screening Tobacco Screening [facility] Start: 04-22-2025 Influenza vaccination [facility] Start: 04-02-2025 End: 04-02-2025 Admission to same day surgery center 04/02/2025 11:30 AM EDT [facility] Colorectal Surgery [address] [id number] Lydia Drake PA-C [address] [place] [address] f/u Colorectal Surgery Comment on above: f/u Start: 03-28-2025 End: 03-28-2025 Patient encounter procedure 03/28/2025 1:30 PM EDT OT/PT/Speech Visit [facility] [id number] [id number] Belkys Smith, PT, DPT tightness in my rectum, anus i cant push out poop [facility] Comment on above: tightness in my rect um, anus i cant push out poop Start: 03-19-2025 [facility] Start: 03-19-2025 X-ray of right foot [facility] Start: 03-19-2025 XR Foot - right 2 Views [facility] Start: 03-18-2025 [facility] Start: 03-15-2025 End: 03-15-2025 Admission to same day surgery center 03/15/2025 4:30 PM EDT [facility] Colorectal Surgery [address] [address] George Navarrete DO [address] [place] [address] [facility] Colorectal Surgery Comment on above: [facility] Start: 03-15-2025 Adult BMI Screening Adult BMI Screen ing [facility] Start: 03-15-2025 Depression Screening Depression Scre ening [facility] Start: 03-15-2025 Tobacco Screening Tobacco Screening [facility] Start: 03-13-2025 X-ray of right foot XR foot RT min 3 V* [facility] Start: 03-13-2025 XR Foot - right GE 3 Views [facility] Start: 02-21-2025 End: 02-21-2025 Patient encounter procedure 02/21/2025 10:30 AM EDT Office Visit General Surgery [address] [address] Jey Kapadia MD [address] [place] [address] Consult Botox Injection General Surgery Comment on above: Consult Botox Inject ion Start: 02-16-2025 Adult BMI Screening Adult BMI Screen ing [facility] Start: 02-16-2025 Screening for malign ant neoplasm of colon [facility] Start: 02-16-2025 Tobacco Screening Tobacco Screening [facility] Start: 02-05-2025 Tobacco Screening Tobacco Screening [facility] Start: 12-10-2024 End: 12-10-2025 CT Chest for screening WO contrast CT low dose lung screening (Annual) Imaging Routine Ex-smoker Expected: 12/10/2024, Expires: 12/10/2025 [facility] Comment on above: Expected: 12/10/2024 , Expires: 12/10/2025 Start: 12-10-2024 End: 12-10-2024 Patient encounter procedure 12/10/2024 1:00 PM EDT [facility] [address] [place] [address] Cisco Bonilla DO [address] [place] [address] [facility] Start: 12-08-2024 Adult BMI Screening Adult BMI Screen ing [facility] Start: 12-08-2024 Depression Screening Depression Scre ening [facility] Start: 12-08-2024 Tobacco Screening Tobacco Screening [facility] Start: 09-26-2024 End: 09-26-2024 Patient encounter procedure 09/26/2024 2:00 PM EST Office Visit [facility] [address] [place] [address] Aníbal Will, DO [address] [facility] [place] [address] [facility] Start: 06-04-2024 End: 06-04-2024 Patient encounter procedure 06/04/2024 2:15 PM EDT Office Visit [facility] Internal Medicine - Family Medicine [address] [place] [address] Cisco Bonilla DO [address] [place] [address] [facility] - [facility] Start: 04-22-2024 Covid-19 Vaccine ( season) Covid-19 Vaccine ( season) [facility] Start: 04-22-2024 COVID-19 Vaccine ( season) COVID-19 Vaccine ( season) [facility] Start: 04-22-2024 Influenza vaccination Influenza Vacc ine [facility] Start: 03-15-2024 End: 03-15-2024 Patient encounter procedure 03/15/2024 3:45 PM EDT Office Visit [facility] Internal Medicine - Family Medicine [address] [place] [address] Cisco Bonilla DO [address] [place] [address] [facility] - [facility] Start: 02-18-2024 Adult BMI Screening Adult BMI Screen ing [facility] Start: 02-18-2024 Depression Screening Depression Scre ening [facility] Start: 02-18-2024 Tobacco Screening Tobacco Screening [facility] Start: 02-17-2024 End: 02-17-2024 Admission to same day surgery center 02/17/2024 2:30 PM EDT - 02/17/2024 3:30 PM EDT Surgery [facility] [address] [place] [id number] Jennyfer Augustin, DO [address] [place] [address] COLONOSCOPY DIAGNOSTIC / SCREENING [51634 (CPT )] [facility] Comment on above: COLONOSCOPY DIAGNOST IC / SCREENING [69273 (CPT )] Start: 02-17-2024 End: 02-17-2024 Colonoscopy flx dx w/collj spec when pfrmd COLONOSCOPY DIAGNOSTIC / SCREENING change in bowel habits 02/17/2024 2:30 PM EDT [facility] Start: 02-17-2024 Subsequent hospital visit by physician 02/17/2024 2:30 PM EDT Hospital Encounter [facility] [address] [place] [id number] Jennyfer Augustin, DO [address] [place] [address] Change in bowel habits (Primary Dx) [facility] Comment on above: Change in bowel habi ts (Primary Dx) Start: 02-16-2024 End: 02-16-2024 ambulatory 02/16/2024 3:50 PM EDT Support Visit [facility] - Pre Admit [address] [place] [id number] [facility] Start: 01-29-2024 CT Abdomen and Pelvi s WO contrast [facility] Start: 01-29-2024 CT of abdomen and pe lvis without contrast CT abdomen pelvis wo con [facility] Start: 10-28-2023 DTaP,Tdap and Td Vaccines (2 - Td or Tdap) DTaP,Tdap and Td Vaccines (2 - Td or Tdap) [facility] Start: 10-28-2023 Urine microalbumin profile DTaP,Tdap,Td Vaccine (2 - Td or Tdap) [facility] Start: 04-22-2023 COVID-19 Vaccine ( season) COVID-19 Vaccine ( season) [facility] Start: 2018 Administration of varicella zoster vaccine Zoster (Shingles) Vaccine (1 of 2) [facility] Start: 2018 Pneumococcal Vaccine : 50+ (1 of 1 - PCV) Pneumococcal Vaccine: 50+ (1 of 1 - PCV) [facility] Start: 2018 Shingrix Vaccine (1 of 2) Shingrix Vaccine (1 of 2) [facility] Start: 2013 Diabetes Screening Diabetes Screenin g [facility] Start: 2013 Prostate specific antigen measurement Prostate Cancer Screening Discussion [facility] Start: 2013 Screening for malign ant neoplasm of colon [facility] Start: 2003 Lipid panel Lipid Screening [facility] Start: 1987 Hepatitis B Vaccine (1 of 3 - 19+ 3-dose series) Hepatitis B Vaccine (1 of 3 - 19+ 3-dose series) [facility] Start: 1987 Pneumococcal Vaccine : 50+ (1 of 2 - PCV) Pneumococcal Vaccine: 50+ (1 of 2 - PCV) [facility] Start: 1987 Shingrix Vaccine (1 of 2) Shingrix Vaccine (1 of 2) [facility] Start: 1987 Urine microalbumin profile DTaP,Tdap,Td Vaccine (1 - Tdap) [facility] Start: 1986 Adult BMI Follow Up Plan Adult BMI Follow Up Plan [facility] Start: 1986 Anxiety Screening Anxiety Screening [facility] Start: 1986 Depression Screening Depression Scre ening [facility] Start: 1986 Hepatitis C screening Hepatitis C Sc juan josé [facility] Start: 1986 HIV screening HIV Screening [facility] End: 09-11-2025 CBC panel - Blood by Automated count CBC Lab Routine Irritable bowel syndrome with both constipation and diarrhea Essential hypertension, benign 1 Occurrences starting 09/11/2024 until 09/11/2025 [facility] Comment on above: 1 Occurrences starti ng 09/11/2024 until 09/11/2025 End: 12-10-2025 CBC panel - Blood by Automated count CBC without diff Lab Routine Hypogonadism in male 1 Occurrences starting 12/10/2024 until 12/10/2025 [facility] Comment on above: 1 Occurrences starti ng 12/10/2024 until 12/10/2025 End: 02-04-2025 Colonoscopy Colonoscopy GI Routine Change in bowel habits Polyp of colon, unspecified part of colon, unspecified type 1 Occurrences starting 02/05/2024 until 02/04/2025 [facility] Work Phone: Comment on above: 1 Occurrences starti ng 02/05/2024 until 02/04/2025 Colonoscopy flx dx w/collj spec when pfrmd COLONOSCOPY DIAGNOSTIC / SCREENING [facility] End: 09-11-2025 Comprehensive metabolic 2000 panel - Serum or Plasma Comprehensive metabolic panel Lab Routine Essential hypertension, benign 1 Occurrences starting 09/11/2024 until 09/11/2025 [facility] Comment on above: 1 Occurrences starti ng 09/11/2024 until 09/11/2025 End: 12-10-2025 Comprehensive metabolic 2000 panel - Serum or Plasma Comprehensive metabolic panel Lab Routine Well adult exam 1 Occurrences starting 12/10/2024 until 12/10/2025 [facility] Work Phone: Comment on above: 1 Occurrences starti ng 12/10/2024 until 12/10/2025 End: 12-10-2025 Iron [Mass/volume] in Serum or Plasma Iron level Lab Routine Iron overload 1 Occurrences starting 12/10/2024 until 12/10/2025 [facility] Comment on above: 1 Occurrences starti ng 12/10/2024 until 12/10/2025 End: 12-10-2025 Lipid 1996 panel - Serum or Plasma Lipid profile Lab Routine Well adult exam 1 Occurrences starting 12/10/2024 until 12/10/2025 [facility] Comment on above: 1 Occurrences starti ng 12/10/2024 until 12/10/2025 Patient Education [facility] Work Phone: Patient referral [facility] Work Phone: End: 09-11-2025 Prostatic specific antigen screen Prostatic specific antigen screen Lab Routine Encounter for screening for malignant neoplasm of prostate 1 Occurrences starting 09/11/2024 until 09/11/2025 [facility] Comment on above: 1 Occurrences starti ng 09/11/2024 until 09/11/2025 End: 12-10-2025 Prostatic specific antigen screen Prostatic specific antigen screen Lab Routine Encounter for screening for malignant neoplasm of prostate 1 Occurrences starting 12/10/2024 until 12/10/2025 [facility] Comment on above: 1 Occurrences starti ng 12/10/2024 until 12/10/2025 End: 09-11-2025 TSH with Reflex TSH with Reflex Lab Routine Irritable bowel syndrome with both constipation and diarrhea Essential hypertension, benign Anxiety 1 Occurrences starting 09/11/2024 until 09/11/2025 [facility] Work Phone: Comment on above: 1 Occurrences starti ng 09/11/2024 until 09/11/2025 End: 12-10-2025 TSH with Reflex TSH with Reflex Lab Routine Anxiety Overweight 1 Occurrences starting 12/10/2024 until 12/10/2025 [facility] Comment on above: 1 Occurrences starti ng 12/10/2024 until 12/10/2025 XR Foot - right GE 3 Views [facility] Immunizations Immunization Date Immunization Notes Care Provider Fa cili 06-20-2021 influenza virus vaccine, unspecified formulation Michelle Francis SILK EXAMINER-PHARMACY TECHNOLOGIST Work Phone: [facility] 06-20-2021 influenza, injectabl e, quadrivalent, preservative free Michelle Francis SILK EXAMINER-PHARMACY TECHNOLOGIST Work Phone: [facility] 06-20-2021 SARS-CoV-2 (COVID-19 ) mRNA BNT-162b2 vax Didi Orzech [facility] 12-08-2020 SARS-CoV-2 (COVID-19 ) mRNA BNT-162b2 vax Didi Orzech [facility] 11-18-2020 SARS-CoV-2 (COVID-19 ) mRNA BNT-162b2 vax Didi Orzech [facility] 04-06-2020 influenza virus vaccine, unspecified formulation Didi Orzech [facility] 04-06-2020 influenza, injectabl e, quadrivalent, preservative free Michelle Tito SILK EXAMINER-PHARMACY TECHNOLOGIST Work Phone: [facility] 06-07-2019 influenza virus vaccine, unspecified formulation Didi Orzech [facility] 06-07-2019 influenza, injectabl e, quadrivalent, preservative free Michelle Tito SILK EXAMINER-PHARMACY TECHNOLOGIST Work Phone: [facility] [employer] [facility] 10-27-2013 tetanus toxoid, redu brock diphtheria toxoid, and acellular pertussis vaccine, adsorbed Michelle Tito SILK EXAMINER-PHARMACY TECHNOLOGIST Work Phone: [facility] Payers Date Payer Category Payer Self-pay [id number] 2024 Medicaid [id number] 2024 Medicaid [id number] Unknown [id number] 1970 Unknown [id number] 2.16.840.1.526622.3.579.2.1285 1970 Unknown [id number] 2.16.840.1.311554.3.579.2.1285 1968 Unknown [id number] 2.16.840.1.532315.3.579.2.1285 1970 Unknown [id number] 2.16.840.1.023935.3.579.2.1285 1968 Unknown [id number] 2.16.840.1.067991.3.579.2.1285 1968 Unknown [id number] 2.16.840.1.249387.3.579.2.1285 1968 Unknown [id number] 2.16.840.1.514288.3.579.2.1285 1968 Unknown [id number] 2.16.840.1.911669.3.579.2.1285 1968 Unknown [id number] 2.16.840.1.319336.3.579.2.7 1968 Unknown [id number] 2.16.840.1.796722.3.579.2. 1968 Unknown [id number] 2.16.840.1.830664.3.579.2.727 1961 Private Health Insurance [id number] Medicaid [id number] Unknown [id number] 2.1 [id number] Unknown [place] [id number] Unknown [id number] 2.16.840.1.503058.3.579.2.531 Unknown [id number] 2.16.840.1.568398.3.579.2.531 Unknown [id number] 2.16.840.1.544173.3.579.2.531 Social History Date Type Detail Facility Unknown if ever smoked [facility] Start: 09-11-2024 End: 02-28-2025 Sex Assigned At [facility] Start: 07-23-1985 End: 03-03-2024 Tobacco smoking status NHIS Smoker (finding) [facility] Start: 1970 Sex Assigned At Male [facility] Start: 02-02-2024 End: 01-24-2025 Tobacco smoking status Ex-smoker (finding) [facility] Start: 11-11-2015 Tobacco smoking status Never [facility] Start: 07-23-1985 End: 12-20-2018 History of tobacco use Cigarette Smoker [facility] Start: 12-09-2023 End: 02-28-2025 Cigarettes smoked current (pack per day) - Reported 1 [facility] History of tobacco use Passive smoker [facility] Start: 12-09-2023 Tobacco use and exposure Smokeless tobacco non-user [facility] Start: 09-11-2024 End: 12-10-2024 Alcoholic beverage intake Current drinker of alcohol (finding) [facility] Has the [employer] plus, or water Night Out threatened to shut off services in your home in past 12Mo Yes [facility] Are you now , , , , never or living with a partner? Never [facility] How often to you hav e a drink containing alcohol? Monthly or less [facility] How often do you hav e 6 or more drinks on 1 occasion? Less than monthly [facility] How hard is it for y ou to pay for the very basics like food, housing, medical care, and heating Very hard [facility] Do you feel stress - tense, restless, nervous, or anxious, or unable to sleep at night because your mind is troubled all the time - these days [OSQ] Very much [facility] Start: 08-01-2022 Education 14 [facility] Start: 08-04-2022 Tobacco Comment vape, today [facility] Start: 10-12-2019 Alcohol Comment Occasional [facility] Start: 1970 Sex assigned at [facility] Start: 03-27-2015 Sex Male (finding) [facility] How many standard drinks containing alcohol do you have on a typical day? 10 or more [facility] Sexual Orientation [facility] Tobacco smoking stat us [facility] Tobacco smoking consumption unknown [facility] Start: 03-03-2024 End: 03-19-2025 Tobacco smoking status IAIS Smokes tobacco daily (finding) [facility] Start: 03-07-2025 Gender identity Identifies as male gender (finding) [facility] Start: 03-07-2025 Sexual orientation Heterosexual (finding) [facility] Medical Equipment Procedure Code Equipment Code Equipment Origin al Text Equipment Identifier Dates ORIF, fracture, wrist Orthopaedic bone screw (non-sliding) ()[id number] [facility] Start: 03-19-2025 Goals Date Patient Goal Desired Activity /State Personal health goal Comment on above: Formatting of this n ote might be different from the original. Evaluation of progress towards goal: with support from friends and family, patient needs to fllow up with [facility] Functional Status Date Assessment Result Facility 01-09-2025 Functional Status N/A [facility] 02-02-2024 Functional Status N/A [facility] Clinical Notes 08-11-2021 to 04-03-2025 Lydia Drake PA-C - 04/03/2025 8:29 AM Lydia Watkins PA-C - 04/02/2025 11:30 AM EDTTelephone Encounter - Lydia Drake PA-C - 03/07/2025 1:37 PM EDTPatient Instructions Note Date & Type Note Facility 04-03-2025 Note HNO ID: [id number] Author: LYDIA DRAKE PA-C Service: ? Author Type: Physician Perpetual Inventory Clerk Type: Progress Notes Filed: 04/03/2025 08:41 Note [...] Anticipated surgical procedure: none Lydia Drake PA-C [facility] 04-03-2025 History of Presen t illness Narrative [...] Lydia Drake PA-C documented in this encounter [facility] 04-02-2025 History of Presen t illness Narrative COLORECTAL SURGERY VIRTUAL VISIT FOLLOW UP 04/02/2025 I have communicated my name and active licensure. The patient's identity and physical location were verified at the time of this visit. Either the patient or their legal rental sales representative has been informed of the risks [...] February 28, 2025. He was referred to [facility] for anorectal manometry by Dr. Brady [...] laxatives and stool softeners; consider referral to [facility] if unable to see local GI anymore ( was told that [facility] would be managing [...] evaluate and manage orthostatic symptoms. Recording using Braclet software for draft documentation of the visit was discussed with the patient/authorized rental sales representative; all questions welcomed and answered. Patient/authorized rental sales representative agreed to proceed JAME Segundo I spent a total of 33 minutes on the date of the service which included preparing to see the patient, [id number] patient care, completing clinical documentation, obtaining and/or reviewing separately obtained history, performing a medically appropriate examination, counseling and educating the patient/family/caregiver, communicating with other HCPs (not separately reported), and care coordination (not separately reported). documented in this encounter [facility] 04-02-2025 Note HNO ID: [id number] Author: LYDIA DRAKE PA-C Service: ? Author Type: Physician Perpetual Inventory Clerk Type: Progress Notes Filed: 04/02/2025 12:17 Note Text: COLORECTAL SURGERY VIRTUAL VISIT FOLLOW UP 04/02/2025 I have communicated my name and active licensure. The patient's identity and physical location were verified at the time of this visit. Either the patient or their legal rental sales representative has been informed of the risks [...] February 28, 2025. He was referred to [facility] for anorectal manometry by Dr. Brady [...] trials of Trulanc (more content not included)... [facility] 03-07-2025 Telephone encounter Note Called patient back. [...] ED with worsening sx. Lydia Drake PA-C [facility] 03-07-2025 Miscellaneous Notes Called patient back. [...] worsening sx. Lydia Drake PA-C Chai Samuel [phone] Patient contacted the office regarding the baclofen that was prescribed to him. He reported that his back is feeling tighter than before and believes that a taking all these different medications may be causing this side effect. Unsure on what he should do. documented in this encounter [facility] 03-07-2025 Telephone encounter Note Chai Samuel [phone] Patient contacted the office regarding the baclofen that was prescribed to him. He reported that his back is feeling tighter than before and believes that a taking all these different medications may be causing this side effect. Unsure on what he should do. [facility] 02-28-2025 Instructions Lydia Drake PA-C - 02/28/2025 1:31 PM EDT We discussed your chronic constipation and pelvic floor dysfunction: - I recommend starting baclofen suppositories, a muscle relaxer, to help with spasms and pain. Use one suppository as needed, up to twice daily. This prescription has been sent to [facility] in [place]. - Begin pelvic floor physical therapy to [...] for you. To make an appointment through [facility] call : [phone] If you are not close to a [facility] location, you can visit any one of these sites. Just put your zip code in and Pelvic Floor Physical Therapy places near you will populate. - [email or web address] - [email or web address] - [email or web address] - [email or web address] documented in this encounter [facility] 02-28-2025 History and physical note PELVIC [...] a compounded preparation from a pharmacy in [place], and previously used hydrocortisone. He has not [...] x 15 years, HTN, Anxiety GI provider: Catilyn Previous Testing Results include: Colonoscopy: Yes Date:01/2024 [...] Weak - Relaxation on pushing: Minimal - Recycling Manager Present: Yes Recycling Manager present: Yes, Arabella Assessment Anorectal Physiology tests [...] which included preparing to see the patient, [id number] patient care, completing clinical documentation, obtaining and/or reviewing separately obtained history, performing a medically appropriate examination, counseling and educating the patient/family/caregiver, ordering medications, tests, or procedures, communicating with other HCPs (not separately reported), independently interpreting results (not separately reported), and communicating results to the patient/family/caregiver. Recording using Braclet software for draft documentation of the visit was discussed with the patient/authorized rental sales representative; all questions welcomed and answered. Patient/authorized rental sales representative agreed to proceed [facility] 02-28-2025 History and physical note PELVIC [...] a compounded preparation from a pharmacy in [place], and previously used hydrocortisone. He has not [...] Weak - Relaxation on pushing: Minimal - Recycling Manager Present: Yes Recycling Manager present: Yes, Arabella Assessment Anorectal Physiology tests [...] which included preparing to see the patient, [id number] patient care, completing clinical documentation, obtaining and/or reviewing separately obtained history, performing a medically appropriate examination, counseling and educating the patient/family/caregiver, ordering medications, tests, or procedures, communicating with other HCPs (not separately reported), independently interpreting results (not separately reported), and communicating results to the patient/family/caregiver. Recording using Braclet software for draft documentation of the visit was discussed with the patient/authorized rental sales representative; all questions welcomed and answered. Patient/authorized rental sales representative agreed to proceed documented in this encounter [facility] 02-18-2025 Evaluation note Diagnosis Onset Date Resolution Fracture of fifth metatarsal bone of right foot acute February 18, 2025 1:30pm Fracture of fifth metatarsal bone of right foot acute March 13, 2025 3:11pm [facility] Work Phone: 1(513) 458-106606-30-2025 Evaluation note* Diagnosis Onset Date Resolution Status Admit Date Fracture of fifth metatarsal bone of right foot acute February 18 1:30pm Fracture of fifth metatarsal bone of right foot acute March 13 3:11pm Fracture of fifth metatarsal bone of right foot acute April 08, 2025 9:12am Other specified postprocedur al states noneactive April 08 9:12am [facility] Work Phone: 1(171) 726-564706-23-2025 Telephone encounter Note* Telephone Encounter - Chelle Christianson - 02/11/2025 9:38 AM EDT Recevied referral from [facility] fot pt referral for botox injections [facility]06-23-2025 Miscellaneous Notes* Telephone Encounter - Chelle Christianson - 02/11/2025 9:38 AM EDT Recevied referral from [facility] fot pt referral for botox injections [facility] Miscellaneous Notes* Telephone Encounter - Linda Marc CMA - 12/31/2024 9:34 AM EDT I called and left message for pt to call back. Regarding his referral to Gastroenterology. George Alcaraz is retired. * Telephone Encounter - Barbara De La Torre CMA - 12/31/2024 9:34 AM EDT Can we send referral to Dr. Moreno in [place] [facility] Telephone encounter Note* Telephone Encounter - Linda Marc CMA - 12/31/2024 9:34 AM EDT I called and left message for pt to call back. Regarding his referral to Gastroenterology. George Alcaraz is retired. [facility]05-12-2025 Telephone encounter Note* Telephone Encounter - Barbara De La Torre CMA - 12/31/2024 9:34 AM EDT Can we send referral to Dr. Moreno in [place] [facility]04-28-2025 Miscellaneous Notes* Telephone Encounter - Barbara De La Torre CMA - 12/17/2024 3:24 PM EDT Patient called and stated he missed his apt in [place] with jaylyn/ent so they will not see him anymore. Can you refer him to someone else. * Telephone Encounter - Cisco Bonilla DO - 12/17/2024 3:24 PM EDT Okay. I sent another referral this time to a gold reclaimer in [place]Dr. Alcaraz. If he can not make [...] usually routine to do. [facility] Telephone encounter Note* Telephone Encounter - Barbara De La Torre CMA - 12/17/2024 3:24 PM EDT Patient called and stated he missed his apt in [place] with jaylyn/ent so they will not see him anymore. Can you refer him to someone else. [facility]-28-2025 Telephone encounter Note* Telephone Encounter - Cisco Bonilla DO - 12/17/2024 3:24 PM EDT Okay. I sent another referral this time to a gold reclaimer in [place] -Dr. Alcaraz. If he can not make [...] treatment which is usually routine to do. [facility]04-21-2025 History of Present illness Narrative* Cisco [...] reveal any inflammatory bowel disease. Thegastroenterologist in [place] did not want to see him. He [...] appear clear Nose: Nose normal. Mouth/Throat: Lips: [place]. Mouth: Mucous membranes are moist. Dentition: Abnormal [...] and irritable bowel syndrome. documented in [facility] History of Present illness Narrative* Cisco Bonilla DO - 11/02/2024 1:58 PM EDT FORM FOR [employer] FILLED OUT documented in [facility] encounter[facility]02-[facility]25 Miscellaneous Notes* Telephone Encounter - Marisa Reinoso - 09/26/2024 2:19 PM EST New Patient NS 09/26/2024 * Telephone Encounter - Suki Islas RN - 09/26/2024 2:19 PM EST Discharge entered documented in [facility] encounter[facility] Telephone encounter Note* Telephone Encounter - Marisa Reinoso - 09/26/2024 2:19 PM EST New Patient NS 09/26/2024 [facility]02-05-2025 Telephone encounter Note* Telephone Encounter - Suki Islas RN - 09/26/2024 2:19 PM EST Discharge entered [facility]01-22-2025 Miscellaneous Notes* Telephone Encounter - Betty [...] a referral to GI specialist at [facility] documented in this encounterMed[facility]01-[facility] Telephone encounter Note* Telephone Encounter - Betty Wild - 09/12/2024 2:21 PM EST [facility] office is refusing to see him [...] referred him to a specialist [facility] [employer] [id number] Telephone encounter Note* Telephone Encounter - Betty Wild - 09/12/2024 2:21 PM EST Can we get this as an urgent referral [facility] [employer] [id number] Telephone encounter Note* Telephone Encounter - Cisco Bonilla DO - 09/12/2024 2:21 PM EST Send a referral to GI specialist at [facility] [employer] [id number] Miscellaneous Notes* Telephone Encounter - Bettygeorge Wild - 09/12/2024 1:47 PM EST Patient called, metamucil is not covered by insurance but they will cover benifiber 240g [facility] [place] [facility] in [facility] encounter[facility]ina [facility]01-[facility] Telephone encounter Note* Telephone Encounter - Betty Wild - 09/12/2024 1:47 PM EST Patient called, metamucil is not covered by insurance but they will cover benifiber 240g [facility] [place] [facility] [id number] History of Present illness Narrative* Cisco Bonilla [...] have an appointment coming up with a gold reclaimer in September. He had to cancel his last appointment because he was having diarrhea and was afraid to leave the house because he might have an accident. The ER did give him Bentyl which did help. He did not think that less than helped at all. He stopped the FiberCon because it was not helping. He would rather have Metamucil. He called the gold reclaimer office and they suggested a cleaned out. [...] Exam Vitals reviewed. Exam conducted with a review appraiser present (Leilani Han MS 3). Constitutional: General: [...] mouth in the morning. documented in [facility] encounter[facility]08-[facility]24 Miscellaneous Notes* Telephone Encounter - Betty Wild - 04/04/2024 10:24 AM EDT ----- Message from Dr. Cisco Bonilla DO sent at 03/15/2024 7:03 PM EDT ----- Regarding: GI/BP recheck Please set up * Telephone Encounter - Betty Wild - 04/04/2024 10:24 AM EDT Mailbox full * Telephone Encounter - Betty Wild - 04/04/2024 10:24 AM EDT Scheduled documented in this encounterMedina Hospital08-14-2024 Telephone encounter Note* Telephone Encounter - Betty Wild - 04/04/2024 10:24 AM EDT ----- Message from Dr. Cisco Bonilla DO sent at 03/15/2024 7:03 PM EDT ----- Regarding: GI/BP recheck Please set up [facility] Telephone encounter Note* Telephone Encounter - Betty Saldanagstock - 04/04/2024 10:24 AM EDT Mailbox full [facility]-14-[facility]24 Telephone encounter Note* Telephone Encounter - Betty Leseliseokaterine - 04/04/2024 10:24 AM EDT Scheduled [facility] History of Present illness Narrative* Cisco [...] was getting liquidy stools-6 and 7 on [place] stool scale. He used fiber supplement in [...] mostly liquidy now. He has been to [facility] 3 times. He was given something for [...] needed for pain (cramping). documented in this encounterMedina Hospital06-[facility]24 Miscellaneous Notes* Telephone Encounter - Betty [...] GoLYTELY sent to pharmacy documented in this encounterMedina Hospital06-[facility]24 Telephone encounter Note* Telephone Encounter - Betty Wild - 02/13/2024 12:02 PM EDT Patient said susame is 130 dollars, is there something else he can try or a coupon to use [facility]06-24-[facility]24 Telephone encounter Note* Telephone Encounter - Linda Marc CMA - 02/13/2024 12:02 PM EDT Pt has medicaid My Bad Please SEND in the SUPREP. . [facility]06-24-2024 Telephone encounter Note* Telephone Encounter - Jennyfer Augustin DO - 02/13/2024 12:02 PM EDT Message noted. The only prep that is covered is the old fashioned Golytely prep [facility]06-24-2024 Telephone encounter Note* Telephone Encounter - Gloria Rodriguez CMA - 02/13/2024 12:02 PM EDT He is Medicaid so whatever his insurance covers [facility]-24-2024 Telephone encounter Note* Telephone Encounter - Jennyfer Augustin DO - 02/13/2024 12:02 PM EDT Message noted. Rx for GoLYTELY sent to pharmacy [facility]06-11-2024 Miscellaneous Notes* Telephone Encounter - Barbara [...] EDT Left message via documented in this encounterMedina Hospital06-11-2024 Telephone encounter Note* Telephone Encounter - Barbara De La Torre CMA - 01/31/2024 3:09 PM EDT Patient called and was in the ER for Urinary re tension. His bowel movements ar still not good. Since I can not get him in for an ER follow up soon what do you suggest he do? He does see urology on [facility] Telephone encounter Note* Telephone Encounter - Cisco Bonilla DO - 01/31/2024 3:09 PM EDT He can use MiraLax 17 g in 8 oz of water daily [facility]06-11-2024 Telephone encounter Note* Telephone Encounter - Barbara De La Torre CMA - 01/31/2024 3:09 PM EDT Left message via [facility] History of Present illness Narrative* SYLVESTER Levin - 12/09/2023 9:00 AM EDT [address] [facility] [id number] Patient: Chai Arnold Date of : 1970 [...] softeners pencilthin like a 4. On the [place] stool scale and he has tried Metamucil and MiraLax. He denies any hemorrhoids or blood in his stool. His last colonoscopy was 4 years ago that showed polyps and diverticulosis and he knows he is due for another colonoscopy next year. Patient has been struggling with weaning off his Xanax. 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 Resources such as Suboxone Clinic in [place] were given. It was also recommended that he apply at [facility] for primary care services and [...] LEVIN APRN-CNP 12/09/23 1230 documented in this encounterUC Medical CenterReqlut [facility] [id number] Evaluation note* Encounter Date Diagnosis Assessment Notes [...] Patient care instructions given in writting by [facility] document. [facility] 12-21-2021 Evaluation note* Encounter Date Diagnosis [...] Patient care instructions given in writting by [facility] document. [facility] Other Evaluation + Plan note Future Appointments Appointment Date:04/03/2024 01:00:00 PM Scheduled Provider:JOSEPH Allen APRN, Didi Martin Location:[facility] Appointment Type:URO Office Visit [facility] Cammie Evaluation + Plan note Future Appointments Appointment Date:04/11/2025 10:45:00 AM Scheduled Provider:Vivian Brady MD Location:[facility] Appointment Type:[facility] Follow Up [facility] evaluation noteNo assessment information available [facility] Work Phone: evaluation note* Diagnosis Irritable bowel syndrome with both constipation and diarrhea- Primary Essential hypertension, benign Anxiety Anxiety state, unspecified Encounter for screening for malignant neoplasm of prostate documented [facility] this encounter [facility] Diagnosis Irritable bowel syndrome with both constipation and diarrhea- Primary [facility] encounter [facility]* Diagnosis Irritable bowel syndrome with constipation- Primary Irritable bowel syndrome Gastroesophageal reflux disease, unspecified whether esophagitis present 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 ([facility]) [facility] Diagnosis Change in bowel habits- Primary Other symptoms involving digestive system Polyp of colon, unspecified part of colon, unspecified type documented in this encounter [facility] Diagnosis Irritable bowel syndrome with both constipation and diarrhea- Primary Umbilical hernia without obstruction and without gangrene Incisional hernia, without obstruction or gangrene Anal fissure documented in this encounter [facility]* Diagnosis Well adult exam- Primary Routine general medical examination at a health care facility Anxiety Anxiety state, unspecified Overweight Iron overload Disorders of iron metabolism Encounter for screening for malignant neoplasm of prostate Ex-smoker Personal history of tobacco use, presenting hazards to health Hypogonadism in male Severe episode of recurrent major depressive disorder, without psychotic features ([facility]) Irritable bowel syndrome with both constipation and diarrhea documented in this encounter [facility] [employer] [facility]* Diagnosis Anal fissure- Primary [facility] encounter [facility] Diagnosis Irritable bowel syndrome with both constipation and diarrhea- Primary documented in this encounter [facility]* Diagnosis Chronic idiopathic constipation- Primary Unspecified constipation Hepatitis C virus infection without hepatic coma, unspecified chronicity documented in this encounter [facility]* Diagnosis 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 Outlet dysfunction constipation Stress-related physiological response affecting medical condition Psychic factors associated with diseases classified elsewhere [facility] this [facility] Diagnosis Onset Date Resolution Status Admit Date Fracture of fifth metatarsal bone of right foot acute February 18, 2025 1:30pm [facility] Work Phone: Evaluation note* Diagnosis Pelvic floor dysfunction Pelvic muscle wasting Pelvic floor dysfunction- Primary Pelvic muscle wasting Rectal spasm Anal spasm Constipation, unspecified constipation type documented in this encounter [facility]* Diagnosis Pelvic floor dysfunction- Primary Pelvic muscle wasting Rectal spasm Anal spasm Constipation, unspecified constipation type documented in this encounter [facility]* Diagnosis Anxiety Anxiety state, unspecified documented [facility] this encounter [facility]* Diagnosis Constipation, unspecified constipation type- Primary Rectal spasm Anal spasm Pelvic floor dysfunction Pelvic muscle wasting Anxiety Anxiety state, unspecified Distressed about housing issues Other specified housing or economic circumstances Orthostatic dizziness documented in this encounter [facility] note* Diagnosis Rectal spasm- Primary Anal spasm Constipation, unspecified constipation type Pelvic floor dysfunction Pelvic muscle wasting Anxiety Anxiety state, unspecified Chronic abdominal pain Abdominal pain, unspecified site Chronic rectal pain Anal or rectal pain documented in this encounter [facility] Narrative - Reported* Type Description Date Medical History insomnia Medical History anxiety Medical History HTN Surgical History appendix removed Surgical History compartment syndrome left hand 2016 Hospitalization History see surgical hx [place] Other Hospital course Narrative No data available for this section [facility] Hospital Discharge instructions Additional Instructions Wear leg bag with [place] catheter [facility] with [facility]rology [facility] are [facility]: Hospital Discharge instructions No data available for this section [facility] Hospital Discharge instructions Additional Instructions Dr. [...] wearing your boot. You may take NSAIDs/Tylenol [id number] as indicated on the bottle. You should [...] be scheduled with Dr. Avina's office at [facility]. At your follow-up we will remove your splint and sutures. Please call to confirm your follow-up appointment. Dr. Ehsan Avina [facility] [address] [place] [address] [facility] Work Phone: Instructions* Attachments The following attachments cannot be sent through Care Everywhere. * IBS Diet (Kazakh) documented in this encounterProAlere Analytics Health SystemInstructionsNot on file documented in this encounterProDayton Children'S HospitalLeanStream Media SystemInstructionsNot on file documented in this encounterProDayton Children'S HospitalReqlut Health SystemInstructionsNot on file documented in this encounterProAlere Analytics Health SystemInstructionsNot on file documented in this encounterProAlere Analytics Health SystemInstructionsNot on file documented in this encounterProDayton Children'S HospitalReqlut Health SystemInstructionsNot on file documented in this encounterProDayton Children'S HospitalLeanStream Media SystemInstructionsNot on file documented in this encounterProDayton Children'S HospitalReqlut Health SystemInstructionsNot on file documented in this encounterProDayton Children'S HospitalReqlut Health SystemInstructionsNot on file documented in this encounterProDayton Children'S HospitalLeanStream Media SystemInstructionsNot on file documented in this encounterProMedica Health SystemInstructionsNot on file documented in this encounterProMedica Health SystemInstructionsNot on file documented in this encounterProMedica Health SystemInstructionsNot on file documented in this encounterProDayton Children'S Hospitalca Health SystemProgress note No data available for this section [facility] Cammie Reason for referral (narrative)* Medication Prior Authorization - Pending Review Specialty Diagnoses / Procedures Referred By Contac t Referred To Contact Cisco Bonilla DO [address] [facility] [address] Phone: tel: fax: Referral ID Status Reason Start Date Expiration Date V isits Requested Visits Authorized [id number] Pending Review 1 1 [facility] System[facility] for referral (narrative)* Medication Prior Authorization - Pending Review Specialty Diagnoses / Procedures Referred By Contac t Referred To Contact Cisco Bonilla DO [address] [facility] [address] Phone: tel: fax: Referral ID Status Reason Start Date Expiration Date V isits Requested Visits Authorized [id number] Pending Review 1 1 [facility] System[facility] for referral (narrative)* Medication Prior Authorization - Pending Review Specialty Diagnoses / Procedures Referred By Contac t Referred To Contact Cisco Bonilla DO [address] [facility] [address] Phone: tel: fax: Referral ID Status Reason Start Date Expiration Date V isits Requested Visits Authorized [id number] Pending Review 1 1 [facility] SystemReason for referral (narrative)No reason for referral information [facility] Work Phone: Summary Purpose Family [...] To Contact Cisco Bonilla, [address] [facility] [address] Referral ID Status Reason Start Date Expiration Date V isits Requested Visits Authorized [id number] Pending Review 03/14/2024 03/14/2025 1 1 Specialty Diagnoses / Procedures Referred By Contac t Referred To Contact Diagnoses Change in bowel habits Polyp of colon, unspecified part of colon, unspecified type Procedures Colonoscopy Cisco Bonilla, DO [address] [place] [address] Referral ID Status Reason Start Date Expiration Date V isits Requested Visits Authorized [id number] Pending Review 02/05/2024 02/04/2025 1 1 Additional Source Comments (unrecognized sect ion and content) No Status Records FoundNo Status Records FoundNo Status Records FoundNo Status Records FoundNo Status Records FoundNo Status Records FoundNo Status Records FoundNo Status Records Found INFORMATION SOURCE (unrecogn ized section and content) DATE CREATED AUTHOR 02/14/2018 [facility] DATE CREATED AUTHOR AUTHOR'S ORGANIZ ATION 03/29/2022 [facility] DATE CREATED AUTHOR AUTHOR'S ORGANIZ ATION 05/18/2024 [facility] DATE CREATED AUTHOR AUTHOR'S ORGANIZ ATION 12/10/2024 [facility] DATE CREATED AUTHOR AUTHOR'S ORGANIZ ATION 12/11/2024 [facility] DATE CREATED AUTHOR AUTHOR'S ORGANIZ ATION 03/31/2025 [facility] DATE CREATED AUTHOR AUTHOR'S ORGANIZ ATION 04/03/2025 [facility] DATE CREATED AUTHOR AUTHOR'S ORGANIZ ATION 04/25/2025 [facility] REASON FOR VISIT (unrecogniz ed section [...] INSTITUTE Diagnoses Pelvic floor dysfunction Procedures ADULT [place] ANORECTAL MANOMETRY ANORECTAL MANOMETRY Violette Maurer APRN.PHARMACY TECHNOLOGIST [address] [place] [address] Phone: tel: fax: [facility] [address] [place] [address] Referral ID Status Reason Start Date Expiration Date V isits Requested Visits Authorized [id number] Closed Auto-Generate d Referral 02/21/2025 08/21/2025 1 1 Reason Comments New Patient Pelvic floor dysfunc tion Specialty Diagnoses / Procedures Referred By Contac t Referred To Contact [facility] Diagnoses Pelvic floor dysfunction Procedures ADULT [place] ANORECTAL MANOMETRY ANORECTAL MANOMETRY Violette Maurer APRN.PHARMACY TECHNOLOGIST [address] [place] [address] Phone: tel: fax: [facility] [address] [place] [address] Referral ID Status Reason Start Date Expiration Date V isits Requested Visits Authorized [id number] Closed Auto-Generate d Referral 02/21/2025 08/21/2025 1 [...] March 03, 2024 End: March 03, 2024 Animal Pathologist Relationship Specialty Start Date End Date Cisco Bonilla DO [address], [facility] [address] PCP - General Family Medicine 12/19/19 Animal Pathologist Relationship Specialty Start Date End Date Cisco Bonilla DO [address], [facility] [address] PCP - General Family Medicine 12/19/19 Animal Pathologist Relationship Specialty Start Date End Date Cisco Bonilla DO [address], [facility] [place] [address] PCP - General Family Medicine 12/19/19 Animal Pathologist Relationship Specialty Start Date End Date Cisco Bonilla DO [address], [place] [address] PCP - General Family Medicine 12/19/19 Animal Pathologist Relationship Specialty Start Date End Date Cisco Bonilla DO [address] [place] [address] PCP - General Family Medicine 12/19/19 Animal Pathologist Relationship Specialty Start Date End Date Cisco Bonilla DO [address], [place] [address] PCP - General Family Medicine 12/19/19 Animal Pathologist Relationship Specialty Start Date End Date Cisco Bonilla DO [address], [place] [address] PCP - General Family Medicine 12/19/19 Animal Pathologist Relationship Specialty Start Date End Date Cisco Bonilla DO [address], [place] [address] PCP - General Family Medicine 12/19/19 Animal Pathologist Relationship Specialty Start Date End Date Cisco Bonilla DO [address] [place] [address] PCP - General Family Medicine 12/19/19 Animal Pathologist Relationship Specialty Start Date End Date Cisco Bonilla DO [address] [place] [address] PCP - General Family Medicine 12/19/19 Animal Pathologist Relationship Specialty Start Date End Date Carlos AlbertolindenCisco cao DO [address] [place] [address] PCP - General Family Medicine 12/19/19 Animal Pathologist Relationship Specialty Start Date End Date Cisco Bonilla DO [address] [place] [address] PCP - General Family Medicine 12/19/19 Animal Pathologist Relationship Specialty Start Date End Date Carlos AlbertolindenCisco cao DO [address] [place] [address] PCP - General Family Medicine 12/19/19 Animal Pathologist Relationship Specialty Start Date End Date Carlos AlbertolindenCisco coa DO [address] [place] [address] PCP - General Family Medicine 12/19/19 Animal Pathologist Relationship Specialty Start Date End Date Cisco Bonilla DO [address] [place] [address] PCP - General Family Medicine 12/19/19 Animal Pathologist Relationship Specialty Start Date End Date Cisco Bonilla DO [address] [place] [address] PCP - General Family Medicine 12/19/19 Animal Pathologist Relationship Specialty Start Date End Date Carlos AlbertolindenCisco cao DO [address] [place] [address] PCP - General Family Medicine 12/19/19 Animal Pathologist Relationship Specialty Start Date End Date Cisco Bonilla DO [address], [place] [address] PCP - General Family Medicine 12/19/19 Animal Pathologist Relationship Specialty Start Date End Date Tyson Tolliver MD PCP - General Family Medicine 11/11/15 Vivian Brady MD [address] [place] [address] Gastroenterology 01/16/25 Animal Pathologist Relationship Specialty Start Date End Date Cisco Bonilla DO [address], [facility] [address] PCP - General Family Medicine 12/19/19 Animal Pathologist Relationship Specialty Start Date End Date Tyson Tolliver MD PCP - General Family Medicine 11/11/15 Vivian Brady MD [address] [address] Gastroenterology 01/16/25 Team Status: Inactive Member Role Status Dates Cisco Bonilla DO Primary Care Provider Active Start: February 18, 2025 End: February 18, 2025 Ehsan Avina DO Attending Provider Active S tart: February 18, 2025 End: February 18, 2025 Animal Pathologist Relationship Specialty Start Date End Date Tyson Tolliver MD PCP - General Family Medicine 11/11/15 Vivian Brady MD [address] [address] Gastroenterology 01/16/25 Animal Pathologist Relationship Specialty Start Date End Date Tyson Tolliver MD PCP - General Family Medicine 11/11/15 Vivian Brady MD [address] [address] Gastroenterology 01/16/25 Animal Pathologist Relationship Specialty Start Date End Date Tyson Tolliver MD PCP - General Family Medicine 11/11/15 Vivian Brady MD [address] [address] Gastroenterology 01/16/25 Animal Pathologist Relationship Specialty Start Date End Date Tyson Tolliver MD PCP - General Family Medicine 11/11/15 Vivian Brady MD [address] [address] Gastroenterology 01/16/25 Team Status: Active Member Role [...] March 19, 2025 End: March 19, 2025 Animal Pathologist Relationship Specialty Start Date End Date Cisco Bonilla DO [address] [facility] [address] PCP - General Family Medicine 12/19/19 Animal Pathologist Relationship Specialty Start Date End Date Tyson Tolliver MD PCP - General Family Medicine 11/11/15 Vivian Brady MD [address] [address] Gastroenterology 01/16/25 Animal Pathologist Relationship Specialty Start Date End Date Tyson Tolliver MD PCP - General Family Medicine 11/11/15 Vivian Brady MD [address] [facility] [address] [address] Gastroenterology 01/16/25 Animal Pathologist Relationship Specialty Start Date End Date Tyson Tolliver MD PCP - General Family Medicine 11/11/15 Vivian Brady MD [address] [place] [id number] Gastroenterology 01/16/25 Team Status: Inactive Member Role [...] or prosecute any alcohol or drug abuse patient.[facility] Hospital[facility] the event this information is protected by the Federal Confidentiality of Alcohol and Drug Abuse Patient Records regulations: The Federal rules restrict any use of the information to criminally investigate or prosecute any alcohol or drug abuse patient.[facility] HospitalIn the event this information is protected by the Federal Confidentiality of Alcohol and Drug Abuse Patient Records regulations: The Federal rules restrict any use of the information to criminally investigate or prosecute any alcohol or drug abuse patient.[facility] HospitalIn the event this information is protected by the Federal Confidentiality of Alcohol and Drug Abuse Patient Records regulations: The Federal rules restrict any use of the information to criminally investigate or prosecute any alcohol or drug abuse patient.[facility] HospitalIn the event this information is protected by the Federal Confidentiality of Alcohol and Drug Abuse Patient Records regulations: The Federal rules restrict any use of the information to criminally investigate or prosecute any alcohol or drug abuse patient.[facility] HospitalIn the event this information is protected by the Federal Confidentiality of Alcohol and Drug Abuse Patient Records regulations: The Federal rules restrict any use of the information to criminally investigate or prosecute any alcohol or drug abuse patient.[facility] HospitalIn the event this information is protected by the Federal Confidentiality of Alcohol and Drug Abuse Patient Records regulations: The Federal rules restrict any use of the information to criminally investigate or prosecute any alcohol or drug abuse patient.[facility] HospitalIn the event this information is protected by the Federal Confidentiality of Alcohol and Drug Abuse Patient Records regulations: The Federal rules restrict any use of the information to criminally investigate or prosecute any alcohol or drug abuse patient.[facility] HospitalIn the event this information is protected by the Federal Confidentiality of Alcohol and Drug Abuse Patient Records regulations: The Federal rules restrict any use of the information to criminally investigate or prosecute any alcohol or drug abuse patient.[facility] FOR RECORDS PERTAINING TO PATIENTS WHO [...] BE BASED ON THE PRIMARY CLINICAL RECORDS. [employer] [facility]. provides no warranty or guarantee of the accuracy or completeness of information in this document.
== END 2025-05-08 20:32 | disposition left against medical advice (07) ==
LOC: ER 20:15
PROVIDERS: Emergency Provider Student in an Organized Health Care Education/Training Program; PCP Family Medicine
DX: Z53.21 Procedure and treatment not carried out due to patient leaving prior to being seen by health care provider (principal)
CPT/HCPCS: 99281

== ENCOUNTER 2025-05-09 05:18 | Emergency (ER) | payer OTHER, SELFPAY ==
--- OUTSIDE RECORDS SUMMARY | 2025-05-09 05:28 | XMS_ITS | CCD ---
Author Organization [facility] Care Team Providers Care Security Operations Center Analyst Name Role Phone OSINOWO, OSIYEMI Unavailable Unavailable OSINOWO, OSIYEMI Unavailable Unavailable NADERER, TYSON Unavailable Unavailable NADERER, TYSON Unavailable Unavailable Mary King Unavailable Tawnya Andre Unavailable CHAD, DR CISCO Thomason Primary Care Unavailable MARKER, DR JUARES Admitting Unavailable MARKER, DR JUARES Attending Unavailable MARKER, DR JUARES Consulting Unavailable ALANA MORROW Consulting Unavailable DO Cisco Bonilla Primary Care Provider MD Jennyfer Winkler Emergency Provider [phone] CISCO BONILLA Primary Care Physician [phone] JAME De Emergency Provider JENNYFER AUGUSTIN Admitting Unavailable JENNYFER AUGUSTIN Attending Unavailable CISCO BONILLA Primary Care Unavailable JENNYFER AUGUSTIN Attending Unavailable JENNYFER AUGUSTIN Referring Unavailable CISCO BONILLA Primary Care Unavailable CHAD, CISCO Thomason Primary Care Unavailable JEY NORRIS Attending Unavailable Carlos Albertolong Cisco MCLAUGHLIN Primary Care Provider [phone] Cisco Bonilla DO Primary Care Provider [phone] CISCO BONILLA Attending Unavailable CISCO BONILLA Referring [...] Medication Allergies] Propensity to adverse reactions (disorder) [facility] Repository Medications Current Medications Medication Drug [...] constipation, # 10 supp, Refills(s) 0, Pharmacy: [facility], 173, cm, 01/24/25 10:35:00 EDT, Height/Length [...] Daily, # 30 tab(s), Refills(s) 4, Pharmacy: [facility], 173, cm, 01/24/25 10:35:00 EDT, Height/Length Dosing, 86.3, kg, 01/24/25 10:35:00 EDT, Weight Dosing Start Date: 01/24/25 Status: Ordered Quantity: 30.0 Unit: tab(s) Repeat number: 5 Indications: Other specified disorders of muscle; Outlet dysfunction constipation; Constipation, unspecified; Psychological and behavioral factors associated with disorders or diseases classified elsewhere; Other psychoactive substance dependence, uncomplicated; Abdominal distension (gaseous); polyethylene glycol 3350 17894 mg powder for oral solution (20 sources) [...] bedtime) for constipation, 100 tab(s), Refill(s) 0, [facility], 173, cm, 01/24/25 10:35:00 EDT, Height/Length Dosing, 86.3, kg, 01/24/25 10:35:00 EDT, Weight Dosing Start Date: 04/19/25 Status: Ordered Quantity: 100.0 Unit: tab(s) Repeat number: 1 Start: 01-09-2025 Senna 8.6 mg o ral tablet 17.2 mg, 2 tab(s), Oral, Once a day (at bedtime) for constipation, 100 tab(s), Refill(s) 3, [facility], 173, cm, 01/09/25 12:52:00 EDT, [...] 2025 March 19, 2025 11:33am peg 3350-sod sulf,lilj-wyp-dyo 178.7-7.3-0.5 gram recon soln (1 source) Start: 02-13-2024 End: 02-14-2024 peg 3350-sod sulf,geef-fhb-ciq 178.7-7.3-0.5 gram recon soln Indications: Change in [...] 03-20-2025 XR foot RT 2V [facility] [place] [address] XRay Report Signed Patient: Chai Arnold MR#: [id number] 2 : 1970 Acct:[id number] Age/Sex: 54 / M ADM Date: 03/19/25 Loc: [place] Room: Type: [facility] Attending Dr: Ehsan Avina [...] Lisa M.D. 03/20/2025 8:49 AM Dictation Location: [place] [address] Transcribed By: [facility] 03/20/25 0849 Dictated By: Dante Lisa II, MD 03/20/25 0849 Signed By: 03/20/25 0849 Normal The Count Includes [facility] Amphetamine Screen Ql (U)Ord ered By: Nirmal Bruno on 03-19-2025 Amphetamines Ql (U) Negative Negative [facility] Barbiturates [Presence] in U rine by Screen methodOrdered By: Nirmal Bruno on 03-19-2025 Barbiturates Screen Ql (U) Negative Negative [facility] Benzodiazepines Screen Ql (U )Ordered By: Nirmal Bruno on 03-19-2025 Benzodiazepines Ql (U) Positive High Negative [facility] Benzoylecgonine [Presence] i n Urine by Screen methodOrdered By: Nirmal Bruno on 03-19-2025 Benzoylecgonine Screen Ql (U) Negative Negative [facility] Cannabinoids [Presence] in U rine by Screen methodOrdered By: Nirmal Bruno on 03-19-2025 Cannabinoids Screen Ql (U) Negative Negative [facility] Comment on above: These are unconfirme d results and should not be used for legal purposes. Drug Cut-Off Concentration: AMPH 1000 ng/mL MAXIMILIAN 200 ng/mL NORA 200 ng/mL COCM 300 ng/mL OP 300 ng/mL PCP 25 ng/mL THC 20 ng/mL Drug Screen,Urineon 03-19-20 25 Amphetamine Screen,Urine Negative Normal Negative The Count Includes [facility] Comment on above: Performed By: #### U RDS #### [address] Barbiturate Screen,Urine Negative Normal Negative The Count Includes [facility] Comment on above: Performed By: #### U RDS #### [place] [address] [place] Benzodiazepines Screen,Urine Positive Normal Negative The Count Includes [facility] Comment on above: Performed By: #### U RDS #### [address] Cannabinoid Screen,Urine Negative Normal Negative The Count Includes [facility] Comment on above: Result Comment: Thes e are unconfirmed results and should not be used for legal purposes. Drug Cut-Off Concentration: AMPH 1000 ng/mL MAXIMILIAN 200 ng/mL NORA 200 ng/mL COCM 300 ng/mL OP 300 ng/mL PCP 25 ng/mL THC 20 ng/mL PERFORMED BY: [place] [address] PATHOLOGIST SUPERVISOR [employer]PARTMENT BROWN OLIVIER M.D. Performed By: #### U RDS #### [place] [address] [place] Cocaine Screen,Urine Negative Normal Negative The Count Includes [facility] Comment on above: Performed By: #### U RDS #### [facility] [address] Opiate Screen,Urine Positive Normal Negative [facility] Comment on above: Performed By: #### U RDS #### [facility] [address] Phencyclidine Screen,Urine Negative Normal Negative The Count Includes [facility] Comment on above: Performed By: #### U RDS #### [address] Opiates [Presence] in Urine by Screen methodOrdered By: Nirmal Bruno on 03-19-2025 Opiates Screen Ql (U) Positive High Negative [facility] Phencyclidine Screen Ql (U)O rdered By: Nirmal Bruno on 03-19-2025 Phencyclidine Ql (U) Negative Negative [facility] Alanine aminotransferase [En zymatic activity/volume] in Serum or PlasmaOrdered By: Ehsan Avina on 03-18-2025 ALT [Catalytic activity/Vol] 15 U/L [facility] Comment on above: Performed By: #### C MP wRFX A1C, CBC #### [address] Albumin [Mass/volume] in Ser um or Plasma by Bromocresol green (BCG) dye binding methoOrdered By: Ehsan Avina on 03-18-2025 Albumin BCG dye [Mass/Vol] 4.2 g/dL 3.5-5.7 [facility] Alkaline phosphatase [Enzyma tic activity/volume] in Serum or PlasmaOrdered By: Ehsan Avina on 03-18-2025 ALP [Catalytic activity/Vol] 116 U/L High 34-104 [facility] Comment on above: Result Comment: PERF ORMED BY: [place] [address] PATHOLOGIST SUPERVISOR [employer] BROWN OLIVIER M.D. Performed By: #### C MP wRFX A1C, CBC #### [address] Aspartate aminotransferase [ Enzymatic activity/volume] in Serum or PlasmaOrdered By: Ehsan Avina on 03-18-2025 AST [Catalytic activity/Vol] 20 U/L 13-39 [facility] Comment on above: Performed By: #### C MP wRFX A1C, CBC #### [facility] [address] Basophils [#/volume] in Bloo d by Automated countOrdered By: Ehsan Avina on 03-18-2025 Basophils (Bld) [#/Vol] 0.1 10*3/uL 0.0-0.2 [facility] Comment on above: Result Comment: PERF ORMED BY: [place] [address] PATHOLOGIST SUPERVISOR [employer] BROWN OLIVIER M.D. Performed By: #### C MP wRFX A1C, CBC #### [address] Basophils/100 leukocytes in Blood by Automated countOrdered By: Ehsan Avina on 03-18-2025 Basophils/100 WBC (Bld) 0.9 % . [facility] Comment on above: Performed By: #### C MP wRFX A1C, CBC #### [address] Bilirubin.total [Mass/volume ] in Serum or PlasmaOrdered By: Ehsan Avina on 03-18-2025 Bilirubin [Mass/Vol] 1.0 mg/dL 0.3-1.0 [facility] Comment on above: Performed By: #### C MP wRFX A1C, CBC #### [facility] [address] CMP with reflex to A1Con Albumin [Mass/Vol] 4.2 g/dL Normal 3.5-5.7 [facility] Comment on above: Performed By: #### C MP wRFX A1C, CBC #### [place] [address] [place] GFR/1.73 sq M.predicted MDRD (S/P/Bld) [Vol rate/Area] mL/min/{1.73_m2} Normal The Count Includes [facility] Comment on above: Performed By: #### C MP wRFX A1C, CBC #### [facility] [address] Calcium [Mass/volume] in Ser um or PlasmaOrdered By: Ehsan Avina on 03-18-2025 Calcium [Mass/Vol] 9.2 mg/dL 8.6-10.3 [facility] Comment on above: Performed By: #### C MP wRFX A1C, CBC #### [facility] [address] Carbon dioxide, total [Moles /volume] in Serum or PlasmaOrdered By: Ehsan Avina on 03-18-2025 CO2 [Moles/Vol] 29.7 mmol/L 21.0-31.0 [facility] Comment on above: Performed By: #### C MP wRFX A1C, CBC #### [facility] [address] Chloride [Moles/volume] in S dereje or PlasmaOrdered By: Ehsan Avina on 03-18-2025 Chloride [Moles/Vol] 102 mmol/L 98-107 [facility] Comment on above: Performed By: #### C MP wRFX A1C, CBC #### [address] Complete Blood Count Auto Di ffon 03-18-2025 Mean Corpuscular HGB Conc 34.4 g/dL Normal 32.5-35.6 The Count Includes [facility] Comment on above: Performed By: #### C MP wRFX A1C, CBC #### [facility] [address] [place] [address] [place] NRBC% 0.1 /100{WBC} Normal 0-0.[address] [facility] Comment on above: Performed By: #### C MP wRFX A1C, CBC #### [facility] [address] White Blood Count 6.4 [CFU]/mL Normal 4.1-10.5 [facility] Comment on above: Performed By: #### C MP wRFX A1C, CBC #### [facility] [address] Creatinine [Mass/volume] in Serum or PlasmaOrdered By: Ehsan Avina on 03-18-2025 Creatinine [Mass/Vol] 1.03 mg/dL 0.70-1.30 [facility] Comment on above: Performed By: #### C MP wRFX A1C, CBC #### [facility] [address] ECG 12 lead ECGon 03-18-2025 ECG 12 lead ECG [facility] [place] [address] [place] [address] Electrocardiograph Report Signed Patient: Chai Arnold MR#: [id number] 2 : 1970 Acct:[id number] Age/Sex: 54 / M ADM Date: 03/18/25 Loc: Room: Type: [facility] Attending Dr: Ehsan Avina DO Ordering [...] previous ECGs available Confirmed by Eduardo Torrez ([id number]) on 03/18/2025 1:40:16 PM Referred By: Electronically Signed By: Eduardo Torrez Transcribed By: MUS Signed By Eduardo Torrez MD 03/18/25 1340 Normal The Count Includes [facility] Eosinophils [#/volume] in Bl ood by Automated countOrdered By: Ehsan Avina on 03-18-2025 Eosinophils (Bld) [#/Vol] 0.9 10*3/uL High 0.0-0.45 [facility] Comment on above: Performed By: #### C MP wRFX A1C, CBC #### [facility] [address] [place] [address] [place] Eosinophils/100 leukocytes i n Blood by Automated countOrdered By: Ehsan Avina on 03-18-2025 Eosinophils/100 WBC (Bld) 14.4 % . [facility] Comment on above: Performed By: #### C MP wRFX A1C, CBC #### [facility] [address] [place] [address] Erythrocyte distribution wid th [Ratio] by Automated countOrdered By: Ehsan Avina on 03-18-2025 Erythrocyte distribution width (RBC) [Ratio] 12.9 % 12.0-14.8 [facility] Comment on above: Performed By: #### C MP wRFX A1C, CBC #### [address] Erythrocytes [#/volume] in B lood by Automated countOrdered By: Ehsan Avina on 03-18-2025 RBC (Bld) [#/Vol] 4.85 10*6/uL 3.90-5.60 [facility] Comment on above: Performed By: #### C MP wRFX A1C, CBC #### [facility] [address] [place] [address] [place] Glucose [Mass/volume] in Ser um or PlasmaOrdered By: Ehsan Avina on 03-18-2025 Glucose [Mass/Vol] 88 mg/dL 70-100 [facility] Comment on above: Performed By: #### C MP wRFX A1C, CBC #### [facility] [address] [place] [address] [place] Hematocrit [Volume Fraction] of Blood by Automated countOrdered By: Ehsan Avina on 03-18-2025 Hematocrit (Bld) [Volume fraction] 46.4 % 38.8-50.0 [facility] Comment on above: Performed By: #### C MP wRFX A1C, CBC #### [facility] [address] [place] [address] [place] Hemoglobin [Mass/volume] in BloodOrdered By: Ehsan Avina on 03-18-2025 Hemoglobin (Bld) [Mass/Vol] 16.0 g/dL 13.0-17.0 [facility] Comment on above: Performed By: #### C MP wRFX A1C, CBC #### [facility] [address] Leukocytes [#/volume] correc ernst for nucleated erythrocytes in Blood by Automated counOrdered By: Ehsan Avina on 03-18-2025 WBC corrected for nucl RBC Auto (Bld) [#/Vol] 6.4 10*3/uL 4.1-10.5 [facility] Leukocytes [#/volume] in Blo od by Automated countOrdered By: Ehsan Avina on 03-18-2025 WBC (Bld) [#/Vol] 6.4 10*3/uL 4.1-10.5 [facility] Comment on above: Performed By: #### C MP wRFX A1C, CBC #### [facility] [address] [place] [address] [place] Lymphocytes [#/volume] in Bl ood by Automated countOrdered By: Ehsan Avina on 03-18-2025 Lymphocytes (Bld) [#/Vol] 1.2 10*3/uL 1.00-4.8 [facility] Comment on above: Performed By: #### C MP wRFX A1C, CBC #### [address] Lymphocytes/100 leukocytes i n Blood by Automated countOrdered By: Ehsan Avina on 03-18-2025 Lymphocytes/100 WBC (Bld) 18.9 % . [facility] Comment on above: Performed By: #### C MP wRFX A1C, CBC #### [facility] [address] [place] [address] [place] MCH [Entitic mass] by Automa ernst countOrdered By: Ehsan Avina on 03-18-2025 MCH (RBC) [Entitic mass] 32.9 pg 27.5-35.2 [facility] Comment on above: Performed By: #### C MP wRFX A1C, CBC #### [facility] [address] [place] [address] [place] MCHC Auto (RBC) [Mass/Vol]Or dered By: Ehsan Avina on 03-18-2025 MCHC (RBC) [Mass/Vol] 34.4 g/dL 32.5-35.6 [facility] MCV [Entitic volume] by Auto mated countOrdered By: Ehsan Avina on 03-18-2025 MCV (RBC) [Entitic vol] 95.7 fL 83.5-101 [facility] Comment on above: Performed By: #### C MP wRFX A1C, CBC #### [facility] [address] [place] [address] [place] Monocytes [#/volume] in Bloo d by Automated countOrdered By: Ehsan Avina on 03-18-2025 Monocytes (Bld) [#/Vol] 0.6 10*3/uL 0.0-0.8 [facility] Comment on above: Performed By: #### C MP wRFX A1C, CBC #### [facility] [address] [place] [address] [place] Monocytes/100 leukocytes in Blood by Automated countOrdered By: Ehsan Avina on 03-18-2025 Monocytes/100 WBC (Bld) 9.7 % . [facility] Comment on above: Performed By: #### C MP wRFX A1C, CBC #### [address] Neutrophils [#/volume] in Bl ood by Automated countOrdered By: Ehsan Avina on 03-18-2025 Neutrophils (Bld) [#/Vol] 3.6 10*3/uL 1.8-7.7 [facility] Comment on above: Performed By: #### C MP wRFX A1C, CBC #### [facility] [address] [place] [address] [place] Neutrophils/100 leukocytes i n Blood by Automated countOrdered By: Ehsan Avina on 03-18-2025 Neutrophils/100 WBC (Bld) 56.1 % . [facility] Comment on above: Performed By: #### C MP wRFX A1C, CBC #### [facility] [address] [place] [address] No Panel InformationOrdered By: Ehsan Avina on 03-18-2025 Estimated GFR (CKD-EPI) > 60.0 mL/Min [facility] Creatinine Clearance (Chem N/A [facility] Nucleated erythrocytes [Pres ence] in Blood by Automated countOrdered By: Ehsan Avina on 03-18-2025 Nucleated RBC Auto Ql (Bld) 0.1 /100{WBC} 0-0.5 [facility] Platelet mean volume [Entiti c volume] in Blood by Automated countOrdered By: Ehsan Avina on 03-18-2025 Platelet mean volume (Bld) [Entitic vol] 8.1 fL 6.6-10.1 [facility] Comment on above: Performed By: #### C MP wRFX A1C, CBC #### [facility] [address] [place] [address] [place] Platelets [#/volume] in Bloo d by Automated countOrdered By: Ehsan Avina on 03-18-2025 Platelets (Bld) [#/Vol] 213 10*3/uL 150-450 [facility] Comment on above: Performed By: #### C MP wRFX A1C, CBC #### [facility] [address] [place] [address] [place] Potassium [Moles/volume] in Serum or PlasmaOrdered By: Ehsan Avina on 03-18-2025 Potassium [Moles/Vol] 4.1 mmol/L 3.5-5.1 [facility] Comment on above: Performed By: #### C MP wRFX A1C, CBC #### [facility] [address] [place] [address] [place] Protein [Mass/volume] in Ser um or PlasmaOrdered By: Ehsan Avina on 03-18-2025 Protein [Mass/Vol] 6.9 g/dL 6.4-8.9 [facility] Comment on above: Performed By: #### C MP wRFX A1C, CBC #### [facility] [address] [place] [address] Serum globulin measurement b y calculation (mass/volume)Ordered By: Ehsan Avina on 03-18-2025 Globulin (S) [Mass/Vol] 2.7 g/dL [facility] Comment on above: Performed By: #### C MP wRFX A1C, CBC #### [facility] [address] [place] [address] Serum or plasma albumin/glob ulin mass ratioOrdered By: Ehsan Avina on 03-18-2025 Albumin/Globulin [Mass ratio] 1.6 {ratio} [facility] Comment on above: Performed By: #### C MP wRFX A1C, CBC #### [facility] [address] [place] [address] Serum or plasma anion gap de terminationOrdered By: Ehsan Avina on 03-18-2025 Anion gap [Moles/Vol] 9.4 mmol/L 6.0-15.0 [facility] Comment on above: Performed By: #### C MP wRFX A1C, CBC #### [facility] [address] [place] [address] Sodium [Moles/volume] in Ser um or PlasmaOrdered By: Ehsan Avina on 03-18-2025 Sodium [Moles/Vol] 137 mmol/L 136-145 [facility] Comment on above: Performed By: #### C MP wRFX A1C, CBC #### [facility] [address] [place] [address] Urea nitrogen [Mass/volume] in Serum or PlasmaOrdered By: Ehsan Avina on 03-18-2025 Urea nitrogen [Mass/Vol] 9 mg/dL 7-25 [facility] Comment on above: Performed By: #### C MP wRFX A1C, CBC #### [facility] [address] [place] [address] X-ray reportOrdered By: Rodney Dawson on 03-13-2025 Study report [facility] [address] [place] [address] XRay Report Signed Patient: Chai Arnold MR#: [id number] : 1970 Acct:[id number] Age/Sex: 54 / M ADM Date: 5 [...] Dawson M.D. 03/13/2025 10:25 PM Dictation Location: [place] [address] Transcribed By: [facility] 03/13/252224 Dictated By: Garrett Dawson DO 03/13/252220 Signed By: 03/13/252224 [facility] XR foot RT min 3V*on 025 XR foot RT min 3V* [facility] [address] [place] [address] XRay Report Signed Patient: Chai Arnold MR#: [id number] 2 : 1970 Acct:[id number] Age/Sex: 54 / M ADM Date: 03/13/25 [...] 10:25 PM Dictation Location: RADIO-PC-20 Transcribed By: [facility] 03/13/252224 Dictated By: Garrett Dawson DO 03/13/252220 Signed By: 03/13/252224 Normal The Count Includes [facility] Doni 03-07-2025 CNPN Telephone ([facility]) ---- CHAI ARNOLD ([id number]) 1970 M Date Time Provider Department 03/07/25 LYDIA DRAKE During your visit today, we recorded the following information about you: Sterling Gonzalez 03/07/2025 1:33 PM Signed Chai Arnold - [phone] Patient contacted the office regarding the baclofen [...] Encounter Status:Closed by STERLING GONZALEZ on 03/07/25 [facility] ANORECTAL MANOMET [facility] 02-28-2025 PATIENT NAME: Chai Arnold PATIENT IDENTITY VERIFICATION COMPLETED USING TWO (2) IDENTIFIERS: Name and Date of confirmed by patient verbally. Referred by: Violette Maurer APRN.CNP Reason for testing: constipation Ileoanal pouch: No SENSITIVE EXAMINATION CONSENT: The sensitive examination was discussed with the Patient or Patient's Authorized Family Educator. As applicable, any other physician, advance practice provider, medical student, or other health professional student that will be observing or involved in the sensitive examination for educational or training purposes was discussed with the Patient or Authorized Family Educator. The Patient or Authorized Family Educator has agreed to proceed with the sensitive examination. Cutting Machine Tender Decorative offered:Patient accepts, visit chaperoned by Antonieta PAYNE,RN [...] agree with the impression as written above. Apanra Guerra MD Colon & Rectal Surgery [facility] ANORECTAL MANOMET RYOrdered By: Aparna Guerra on 02-28-2025 [facility] Work Phone: Radiology Study observation (narrative) Usha dubose [facility] Work Phone: CNNURSEon 02-28-2025 CNNURSE Nurse Visit (KENIA) ---- CHAI ARNOLD ([id number]) 1970 M Date Time Provider Department 02/28/25 12:30 PM SAHIL BERGERON During your visit today, we recorded the following information about you: Referring Provider: VIOLETTE MAURER [[id number]] Allergies As of Date: 02/28/2025 (No Known Allergies) Date Reviewed: 02/28/2025 Reviewed by: Macey Meek OCCA - Fully Assessed Reason for Visit: Manometry [780] Visit Diagnosis:Pelvic floor dysfunction [M62.89] Order(s):ADULT [place] ANORECTAL MANOMETRY [[id number]] Order #: [id number] Prescriptions as of 02/28/2025 - ALPRAZolam (XANAX) [...] Encounter Status:Closed by SAHIL BERGERON on 02/28/25 [facility] CNOVon 02-28-2025 CNOV Office Visit (KENIA) ---- CHAI ARNOLD ([id number]) 1970 M Date Time Provider Department 02/28/25 [...] a compounded preparation from a pharmacy in [place], and previously used hydrocortisone. He has not [...] retroflexed positi (more content not included)... Normal [facility] HISTORY PHYSICALon HISTORY PHYSICAL HNO ID: [id number] Author: LYDIA DRAKE PA-C Service: ? Author Type: Physician Director Of Optimization Type: H&P Filed: 02/28/2025 13:41 Note Text: [...] a compounded preparation from a pharmacy in [place], and previously used hydrocortisone. He has not [...] No pa (more content not included)... Normal [facility] 02-11-2025 CNPN Telephone ([facility]) ---- CHAI ARNOLD ([id number]) 1970 M Date Time Provider Department 02/11/25 ASHLEY HAYWARD [facility] During your visit today, we recorded [...] Encounter Status:Closed by CHELLE CHRISTIANSON on 02/11/25 [facility] Ambulatory Visit Summaryon 0 01-24-2025 [...] EDT With: Caitlyn CHAVIS, Vivian Lance Where: [facility] [address] [place] [address]- Medications What How Much When Why Instructions New plecanatide (Trulance 3 mg oral tablet) 1 Tablets By Mouth Every day Constipation Constipation by outlet dysfunction Pelvic floor dysfunction Bloating Stress-related physiological response affecting medical condition Drug dependence Refills: 4 Pickup at [facility] Unchanged amlodipine (amLODIPine 5 mg Tab) [...] physician if questions or concerns Pharmacy Information [facility]: [address] Brian Leal [place] [id number] [phone] Allergies No Known Medication Allergies Problems Ongoing [...] for choosing us for your care. Normal [facility] Gastroenterology Office/Clin ic Noteon 01-24-2025 Gastroenterology [...] him. Will refer to GI psychology at [facility] Advised to use squatty potty and [...] days could not see a provider at [facility] Review of Systems PHQ Score Initial [...] Daily, # 30 tab(s), Refills(s) 4, Pharmacy: [facility], 173, cm, 01/24/25 10:35:00 EDT, Height/Length Dosing, 86.3, kg, 01/24/25 10:35:00 EDT, Weight Dosing 2. Constipation by outlet dysfunction (K59.02: Outlet dysfunction constipation) Ordered: plecanatide, 3 mg = 1 tab(s), Oral, Daily, # 30 tab(s), Refills(s) 4, Pharmacy: [facility], 173, cm, 01/24/25 10:35:00 EDT, Height/Length Dosing, 86.3, kg, 01/24/25 10:35:00 EDT, Weight Dosing 3. Pelvic floor dysfunction (M62.89: Other specified disorders of muscle) Ordered: plecanatide, 3 mg = 1 tab(s), Oral, Daily, # 30 tab(s), Refills(s) 4, Pharmacy: [facility], 173, cm, 01/24/25 10:35:00 EDT, Height/Length Dosing, 86.3, kg, 01/24/25 10:35:00 EDT, Weight Dosing 4. Bloating (R14.0: Abdominal distension (gaseous)) Ordered: plecanatide, 3 mg = 1 tab(s), Oral, Daily, # 30 tab(s), Refills(s) 4, Pharmacy: [facility], 173, cm, 01/24/25 10:35:00 EDT, Height/Length Dosing, 86.3, kg, 01/24/25 10:35:00 EDT, Weight Dosing 5. Stress-related physiological response affecting medical condition (F54: Psychological and behavioral factors associated with disorders or diseases classified elsewhere) Ordered: (more content not included)... Normal [facility] Comment on above: Result Comment: Elec [...] Someone Will Contact You Regarding These Appointments [facility] External Ambulatory Referral, Gastroenterology, 01/09/25 13:16:00 EDT, [...] him. Will refer to GI psychology at [facility] Advised to use squatty potty and [...] 11/18/2020 Recorded (more content not included)... Normal [facility] Comment on above: Result Comment: Elec tronically Signed By: Caitlyn CHAVIS, Vivian Lance\.br\Date and Time Signed: 01/09/25 13:17 EDT COMPLETE BLOOD COUNTon 12-10 Erythrocyte distribution width (RBC) [Ratio] 13.5 % Normal 11.5-15.0 [facility] Comment on above: Performed By: #### C BC, [facility], 2498-4, 75889-4, 2857-1, TSHR #### [facility] ([id number]) [address] [address] Hematocrit (Bld) [Volume fraction] 48.2 % Normal 39-49 [facility] Comment on above: Performed By: #### C BC, CMP, 2498-4, 98104-6, 2857-1, TSHR #### [facility] ([id number]) [address], [address] [place] [address] Hemoglobin (Bld) [Mass/Vol] 16.1 g/dL Normal 13.0-17.0 [facility] Comment on above: Performed By: #### C BC, CMP, 2498-4, 23087-1, 2857-1, TSHR #### [facility] ([id number]) [address], [facility] [address] [place] [address] MCH (RBC) [Entitic mass] 31.9 pg Normal 27-34 [facility] Comment on above: Performed By: #### C BC, CMP, 2498-4, 12796-4, 2857-1, TSHR #### [facility] ([id number]) [address], [address] [place] [address] MCHC (RBC) [Mass/Vol] 33.4 g/dL Normal 32-36 [facility] Comment on above: Performed By: #### C BC, CMP, 2498-4, 64813-8, 2857-1, TSHR #### [facility] ([id number]) [address], [facility] [address] [place] [address] MCV (RBC) [Entitic vol] 96 fL Normal 80-100 [facility] Comment on above: Performed By: #### C BC, CMP, 2498-4, 94406-6, 2857-1, TSHR #### [facility] ([id number]) [address], [address] [place] [address] Platelet mean volume (Bld) [Entitic vol] 9.6 fL Normal 7-12 [facility] Comment on above: Performed By: #### C BC, CMP, 2498-4, 90208-8, 2857-1, TSHR #### [facility] ([id number]) [address], [address] [place] [address] Platelets (Bld) [#/Vol] 184 10*3/uL Normal 150-450 [facility] Comment on above: Performed By: #### C BC, CMP, 2498-4, 69486-8, 2857-1, TSHR #### [facility] ([id number]) [address], [address] [place] [address] RBC COUNT 5.04 X10E12/L Normal 4.10-5.70 [facility] Comment on above: Performed By: #### C BC, CMP, 2498-4, 80592-1, 2857-1, TSHR #### [facility] ([id number]) [address], [address] [place] [address] WBC (Bld) [#/Vol] 5.2 10*3/uL Normal 4.0-11.0 [facility] Comment on above: Performed By: #### C BC, CMP, 2498-4, 87149-5, 2857-1, TSHR #### [facility] ([id number]) [address], [address] [place] [address] COMPREHENSIVE METABOLIC PANE Vern 12-10-2024 Albumin [Mass/Vol] 4.5 g/dL Normal 3.2-5.3 [facility] Comment on above: Performed By: #### C BC, CMP, 2498-4, 66201-2, 2857-1, TSHR #### [facility] ([id number]) [address], [address] [place] [address] ALP [Catalytic activity/Vol] 101 U/L Normal 39-130 [facility] Comment on above: Performed By: #### C BC, CMP, 2498-4, 63288-8, 2857-1, TSHR #### [facility] ([id number]) [address], [address] [place] [address] ALT [Catalytic activity/Vol] 38 U/L Normal 0-40 [facility] Comment on above: Performed By: #### C BC, CMP, 2498-4, 84640-9, 2857-1, TSHR #### [facility] ([id number]) [address], [address] [place] [address] Anion gap [Moles/Vol] 11 mmol/L Normal 5-15 [facility] Comment on above: Performed By: #### C BC, CMP, 2498-4, 78875-4, 2857-1, TSHR #### [facility] ([id number]) [address], [address] [place] [address] AST [Catalytic activity/Vol] 28 U/L Normal 0-41 [facility] Comment on above: Performed By: #### C BC, CMP, 2498-4, 16059-3, 2857-1, TSHR #### [facility] ([id number]) [address], [address] [place] [address] Bilirubin [Mass/Vol] 0.6 mg/dL Normal 0.3-1.2 [facility] Comment on above: Performed By: #### C BC, CMP, 2498-4, 99640-3, 2857-1, TSHR #### [facility] ([id number]) [address], [address] [place] [address] Calcium [Mass/Vol] 9.6 mg/dL Normal 8.5-10.5 [facility] Comment on above: Performed By: #### C BC, CMP, 2498-4, 09394-7, 2857-1, TSHR #### [facility] ([id number]) [address], [address] [place] [address] Chloride [Moles/Vol] 105 mmol/L Normal 98-109 [facility] Comment on above: Performed By: #### C BC, CMP, 2498-4, 24678-7, 2857-1, TSHR #### [facility] ([id number]) [address], [address] [place] [address] CO2 [Moles/Vol] 26 mmol/L Normal 22-32 [facility] Comment on above: Performed By: #### C BC, CMP, 2498-4, 15299-7, 2857-1, TSHR #### [facility] ([id number]) [address], [address] [place] [address] Creatinine [Mass/Vol] 0.94 mg/dL Normal 0.60-1.30 [facility] Comment on above: Result Comment: METH OD TRACEABLE TO IDMS STANDARD Performed By: #### C KARLEY, CMP, 2498-4, 52156-7, 2857-1, TSHR #### [facility] ([id number]) [address], [address] [place] [address] eGFR (CKD-EPI) NON-RACE DEPENDENT >90 Normal >59 [facility] Comment on above: Result Comment: Reported eGFR is based on the CKD-EPI 2020 equation that does not use a race coefficient. Performed By: #### C KARLEY, CMP, 2498-4, 11716-2, 2857-1, TSHR #### [facility] ([id number]) [address], [address] [place] [address] Glucose [Mass/Vol] 86 mg/dL Normal 65-99 [facility] Comment on above: Performed By: #### Remberto CRANDALL, CMP, 2498-4, 68582-2, 2857-1, TSHR #### [facility] ([id number]) [address], [address] [place] [address] Potassium [Moles/Vol] 4.2 mmol/L Normal 3.5-5.0 [facility] Comment on above: Performed By: #### Remberto CRANDALL, CMP, 2498-4, 33322-1, 2857-1, TSHR #### [facility] ([id number]) [address], [address] [place] [address] Protein [Mass/Vol] 7.4 g/dL Normal 6.0-8.0 [facility] Comment on above: Performed By: #### C BC, CMP, 2498-4, 80251-4, 2857-1, TSHR #### [facility] ([id number]) [address], [address] [place] [address] Sodium [Moles/Vol] 142 mmol/L Normal 134-146 [facility] Comment on above: Performed By: #### C BC, CMP, 2498-4, 00283-1, 2857-1, TSHR #### [facility] ([id number]) [address], [facility] [address] [place] [address] Urea nitrogen [Mass/Vol] 13 mg/dL Normal 5-23 [facility] Comment on above: Performed By: #### Remberto BC, CMP, 2498-4, 99885-1, 2857-1, TSHR #### [facility] ([id number]) [address], [facility] [address] [place] [address] IRONon 12-10-2024 Iron [Mass/Vol] 184 ug/dL Normal 50-212 [facility] Comment on above: Performed By: ###Oseas Sr BC, CMP, 2498-4, 97089-7, 2857-1, TSHR #### [facility] ([id number]) [address], [address] [address] Lipid 1996 panelon Cholesterol [Mass/Vol] 183 mg/dL Normal 150-200 [facility] Comment on above: Performed By: ###Oseas Sr BC, CMP, 2498-4, 37380-0, 2857-1, TSHR #### [facility] ([id number]) [address] [address] Cholesterol in HDL [Mass/Vol] 38 mg/dL Low >39 [facility] Comment on above: Result Comment: HDL <40 mg/dL - High Risk HDL > or = 40mg/dL- Desirable HDL >60 mg/dL - Negative Risk Performed By: #### Remberto BC, CMP, 2498-4, 56236-4, 2857-1, TSHR #### [facility] ([id number]) [address] [address] Cholesterol in LDL [Mass/Vol] 121 mg/dL Normal <130 [facility] Comment on above: Result Comment: LDL <100 mg/dL - Desirable LDL >160 mg/dL - High Risk Performed By: #### C BC, CMP, 2498-4, 32579-5, 2857-1, TSHR #### [facility] ([id number]) [address] [address] Cholesterol in VLDL [Mass/Vol] 24 mg/dL Normal 0-30 [facility] Comment on above: Performed By: #### Remberto BC, CMP, 2498-4, 06978-3, 2857-1, TSHR #### [facility] ([id number]) [address] [address] CHOLESTEROL:HDL 4.8 Normal 1.0-5.0 [facility] Comment on above: Performed By: #### Remberto BC, CMP, 2498-4, 20718-3, 2857-1, TSHR #### [facility] ([id number]) [address] [address] Triglyceride [Mass/Vol] 119 mg/dL Normal 27-150 [facility] Comment on above: Performed By: #### Remberto BC, CMP, 2498-4, 56583-6, 2857-1, TSHR #### [facility] ([id number]) [address] [address] Prostate specific Ag [Mass/V ol]on 12-10-2024 PSA SCREEN 0.57 ng/mL Normal 0.00-4.00 [facility] Comment on above: Result Comment: The method used for this test is Graciela Shashi DXI chemiluminescent immunoassay. Values obtained by different assay methods cannot be used interchangeably. Performed By: #### C BC, CMP, 2498-4, 08577-3, 2857-1, TSHR #### [facility] ([id number]) [address] [address] TSH WITH REFLEXon 12-10-2024 TSH 1.34 uIU/mL Normal 0.49-4.67 [facility] Comment on above: Performed By: #### C BC, CMP, 2498-4, 02161-6, 2857-1, TSHR #### [facility] ([id number]) [address] [address] COMPLETE BLOOD COUNTon 09-11 Erythrocyte distribution width (RBC) [Ratio] 13.4 % Normal 11.5-15.0 [facility] Comment on above: Performed By: #### Remberto CRANDALL, CMP, 2857-1, TSHR #### [facility] ([id number]) [address] [address] Hematocrit (Bld) [Volume fraction] 47.4 % Normal 39-49 [facility] Comment on above: Performed By: #### Remberto BC, CMP, 2857-1, TSHR #### [facility] ([id number]) [address] [address] Hemoglobin (Bld) [Mass/Vol] 16.4 g/dL Normal 13.0-17.0 [facility] Comment on above: Performed By: #### Remberto BC, CMP, 2857-1, TSHR #### [facility] ([id number]) [address] [address] MCH (RBC) [Entitic mass] 32.4 pg Normal 27-34 [facility] Comment on above: Performed By: #### Remberto BC, CMP, 2857-1, TSHR #### [facility] ([id number]) [address] [place] [address] MCHC (RBC) [Mass/Vol] 34.6 g/dL Normal 32-36 [facility] Comment on above: Performed By: #### Remberto BC, CMP, 2857-1, TSHR #### [facility] ([id number]) [address] [address] [place] [address] MCV (RBC) [Entitic vol] 94 fL Normal 80-100 [facility] Comment on above: Performed By: #### Remberto BC, CMP, 2857-1, TSHR #### [facility] ([id number]) [address] [address] [place] [address] Platelet mean volume (Bld) [Entitic vol] 9.4 fL Normal 7-12 [facility] Comment on above: Performed By: #### Remberto CRANDALL, CMP, 2857-1, TSHR #### [facility] ([id number]) [address] [address] [place] [address] Platelets (Bld) [#/Vol] 235 10*3/uL Normal 150-450 [facility] Comment on above: Performed By: #### Remberto BC, CMP, 2857-1, TSHR #### [facility] ([id number]) [address] [address] [place] [address] RBC COUNT 5.06 X10E12/L Normal 4.10-5.70 [facility] Comment on above: Performed By: #### Remberto BC, CMP, 2857-1, TSHR #### [facility] ([id number]) [address] [address] [place] [address] WBC (Bld) [#/Vol] 7.0 10*3/uL Normal 4.0-11.0 [facility] Comment on above: Performed By: #### Remberto BC, CMP, 2857-1, TSHR #### [facility] ([id number]) [address] [place] [address] COMPREHENSIVE METABOLIC PANE Vern 09-11-2024 Albumin [Mass/Vol] 4.5 g/dL Normal 3.2-5.3 [facility] Comment on above: Performed By: #### C BC, CMP, 2857-1, TSHR #### [facility] ([id number]) [address] [place] [address] ALP [Catalytic activity/Vol] 133 U/L High 39-130 [facility] Comment on above: Performed By: #### C BC, CMP, 2857-1, TSHR #### [facility] ([id number]) [address], [address] [place] [address] ALT [Catalytic activity/Vol] 20 U/L Normal 0-40 [facility] Comment on above: Performed By: #### Remberto BC, CMP, 2857-1, TSHR #### [facility] ([id number]) [address] [place] [address] Anion gap [Moles/Vol] 10 mmol/L Normal 5-15 [facility] Comment on above: Performed By: #### Remberto BC, CMP, 2857-1, TSHR #### [facility] ([id number]) [address], [address] [place] [address] AST [Catalytic activity/Vol] 26 U/L Normal 0-41 [facility] Comment on above: Performed By: #### C BC, CMP, 2857-1, TSHR #### [facility] ([id number]) [address] [place] [address] Bilirubin [Mass/Vol] 0.8 mg/dL Normal 0.3-1.2 [facility] Comment on above: Performed By: #### C BC, CMP, 2857-1, TSHR #### [facility] ([id number]) [address], [address] [place] [address] Calcium [Mass/Vol] 9.6 mg/dL Normal 8.5-10.5 [facility] Comment on above: Performed By: #### Remberto CRANDALL CMP, 2857-1, TSHR #### [facility] ([id number]) [address] [place] [address] Chloride [Moles/Vol] 103 mmol/L Normal 98-109 [facility] Comment on above: Performed By: #### Remberto CRANDALL CMP, 2857-1, TSHR #### [facility] ([id number]) [address], [facility] [address] [place] [address] CO2 [Moles/Vol] 27 mmol/L Normal 22-32 [facility] Comment on above: Performed By: #### Remberto CRANDALL CMP, 2857-1, TSHR #### [facility] ([id number]) [address] [place] [address] Creatinine [Mass/Vol] 1.05 mg/dL Normal 0.60-1.30 [facility] Comment on above: Result Comment: METH OD TRACEABLE TO IDMS STANDARD Performed By: #### Remberto CRANDALL CMP, 2857-1, TSHR #### [facility] ([id number]) [address], [facility] [address] [place] [address] GFR/1.73 sq M.predicted among non-blacks MDRD (S/P/Bld) [Vol rate/Area] 83 mL/min/{1.73_m2} Normal >59 [facility] Comment on above: Result Comment: Reported eGFR is based on the CKD-EPI 2020 equation that does not use a race coefficient. Performed By: #### Remberto CRANDALL CMP, 2857-1, TSHR #### [facility] ([id number]) [address], [address] [place] [address] Glucose [Mass/Vol] 87 mg/dL Normal 65-99 [facility] Comment on above: Performed By: #### Remberto CRANDALL, CMP, 2857-1, TSHR #### [facility] ([id number]) [address] [address] [place] [address] Potassium [Moles/Vol] 3.9 mmol/L Normal 3.5-5.0 [facility] Comment on above: Performed By: #### Remberto CRANDALL CMP, 2857-1, TSHR #### [facility] ([id number]) [address] [address] [place] [address] Protein [Mass/Vol] 7.3 g/dL Normal 6.0-8.0 [facility] Comment on above: Performed By: #### Remberto CRANDALL CMP, 2857-1, TSHR #### [facility] ([id number]) [address] [address] [place] [address] Sodium [Moles/Vol] 140 mmol/L Normal 134-146 [facility] Comment on above: Performed By: #### Remberto CRANDALL CMP, 2857-1, TSHR #### [facility] ([id number]) [address] [address] [place] [address] Urea nitrogen [Mass/Vol] 6 mg/dL Normal 5-23 [facility] Comment on above: Performed By: #### Remberto CRANDALL CMP, 2857-1, TSHR #### [facility] ([id number]) [address] [address] [place] [address] Prostate specific Ag [Mass/V ol]on 09-11-2024 PSA SCREEN 0.71 ng/mL Normal 0.00-4.00 [facility] Comment on above: Result Comment: The method used for this test is Graciela Ivor DXI chemiluminescent immunoassay. Values obtained by different assay methods cannot be used interchangeably. Performed By: #### Remberto CRANDALL, CMP, 2857-1, TSHR #### [facility] ([id number]) [address] [address] [place] [address] TSH WITH REFLEXon 09-11-2024 TSH 1.29 uIU/mL Normal 0.49-4.67 [facility] Comment on above: Performed By: #### C BC, CMP, 2857-1, TSHR #### [facility] ([id number]) [address] [place] [address] CBC AND AUTO DIFFon 05-15-20 ABSOLUTE BASOPHIL 0.1 X10E9/L Normal 0.0-0.2 [facility] Comment on above: Performed By: #### C BCA, CMP, 3040-3, 27319-3 #### [facility] ([id number]) [address] [place] [address] ABSOLUTE NEUTROPHIL 5.7 X10E9/L Normal 1.5-6.6 [facility] Comment on above: Performed By: #### C BCA, CMP, 3040-3, 72873-9 #### [facility] ([id number]) [address] [place] [address] Basophils/100 WBC (Bld) 0.7 % Normal [facility] Comment on above: Performed By: #### C BCA, CMP, 3040-3, 25191-1 #### [facility] ([id number]) [address] [place] [address] Eosinophils (Bld) [#/Vol] 0.4 10*3/uL Normal 0.0-0.4 [facility] Comment on above: Performed By: #### C BCA, CMP, 3040-3, 56937-0 #### [facility] ([id number]) [address] [place] [address] Eosinophils/100 WBC (Bld) 4.9 % Normal [facility] Comment on above: Performed By: #### C BCA, CMP, 3040-3, 67098-9 #### [facility] ([id number]) [address] [place] [address] Erythrocyte distribution width (RBC) [Ratio] 12.3 % Normal 11.5-15.0 [facility] Comment on above: Performed By: #### C ALEXANDRIA ANTOINE, 3040-3, 11770-0 #### [facility] ([id number]) [address] [place] [address] Hematocrit (Bld) [Volume fraction] 41.8 % Normal 39-49 [facility] Comment on above: Performed By: #### C ALEXANDRIA ANTOINE, 3, 74990-9 #### [facility] ([id number]) [address] [place] [address] Hemoglobin (Bld) [Mass/Vol] 15.1 g/dL Normal 13.0-17.0 [facility] Comment on above: Performed By: #### Remberto ANTOINE CMP, 3, 14129-2 #### [facility] ([id number]) [address] [place] [address] Lymphocytes (Bld) [#/Vol] 1.4 10*3/uL Normal 1.0-3.5 [facility] Comment on above: Performed By: #### Remberto ANTOINE CMP, 30403, 99273-8 #### [facility] ([id number]) [address] [place] [address] Lymphocytes/100 WBC (Bld) 17.3 % Normal [facility] Comment on above: Performed By: #### Remberto ANTOINE CMP, 304-3, 08046-8 #### [facility] ([id number]) [address] [place] [address] MCH (RBC) [Entitic mass] 32.3 pg Normal 27-34 [facility] Comment on above: Performed By: #### C BCA, CMP, 0-3, 38758-3 #### [facility] ([id number]) [address] [place] [address] MCHC (RBC) [Mass/Vol] 36.0 g/dL Normal 32-36 [facility] Comment on above: Performed By: #### C ARASH, CMP, 0-3, 65363-8 #### [facility] ([id number]) [address] [place] [address] 52535 MCV (RBC) [Entitic vol] 90 fL Normal 80-100 P [facility] Comment on above: Performed By: #### C ARASH, CMP, 0-3, 29679-1 #### [facility] ([id number]) [address] [place] [address] 36371 Monocytes (Bld) [#/Vol] 0.6 10*3/uL Normal 0-0.9 [facility] Comment on above: Performed By: #### C ARASH, CMP, 0-3, 82625-8 #### [facility] ([id number]) [address] [place] [address] 77230 Monocytes/100 WBC (Bld) 7.6 % Normal [facility] Comment on above: Performed By: #### Remberto ANTOINE, CMP, 3039-3, 79785-9 #### [facility] ([id number]) [address] [place] [address] 66724 Neutrophils/100 WBC (Bld) 69.5 % Normal [facility] Comment on above: Performed By: #### Remberto BCA, CMP, 0-3, 18594-3 #### [facility] ([id number]) [address] [place] [address] 20698 Platelet mean volume (Bld) [Entitic vol] 8.2 fL Normal 7-12 [facility] Comment on above: Performed By: #### C BCA, CMP, 0-3, 99646-1 #### [facility] ([id number]) [address] [place] [address] 64987 Platelets (Bld) [#/Vol] 254 10*3/uL Normal 150-450 [facility] Comment on above: Performed By: #### C BCA, CMP, 3040-3, 11492-1 #### [facility] ([id number]) [address] [place] [address] 17960 RBC COUNT 4.66 X10E12/L Normal 4.10-5.70 [facility] Comment on above: Performed By: #### C BCA, CMP, 3040-3, 27548-5 #### [facility] ([id number]) [address] [place] [address] 94001 WBC (Bld) [#/Vol] 8.1 10*3/uL Normal 4.0-11.0 [facility] Comment on above: Performed By: #### C BCA, CMP, 3040-3, 26490-5 #### [facility] ([id number]) [address] [place] [address] 76691 COMPREHENSIVE METABOLIC PANE [facility] 05-15-2024 Albumin [Mass/Vol] 4.5 g/dL Normal 3.2-5.3 [facility] Comment on above: Performed By: #### C BCA, CMP, 3040-3, 75700-2 #### [facility] ([id number]) [address] [place] [address] 18039 ALP [Catalytic activity/Vol] 105 U/L Normal 39-130 [facility] Comment on above: Performed By: #### C BCA, CMP, 3040-3, 67969-1 #### [facility] ([id number]) [address] [place] [address] 29237 ALT [Catalytic activity/Vol] 33 U/L Normal 0-40 [facility] Comment on above: Performed By: #### C BCA, CMP, 3040-3, 20314-5 #### [facility] ([id number]) [address] [place] [address] 68530 Anion gap [Moles/Vol] 9 mmol/L Normal 5-15 [facility] Comment on above: Performed By: #### C BCA, CMP, 3040-3, 99153-5 #### [facility] ([id number]) [address] [place] [address] 10823 AST [Catalytic activity/Vol] 29 U/L Normal 0-41 [facility] Comment on above: Performed By: #### C BCA, CMP, 3040-3, 74416-1 #### [facility] ([id number]) [address] [place] [address] 01464 Bilirubin [Mass/Vol] 0.9 mg/dL Normal 0.3-1.2 [facility] Comment on above: Performed By: #### C BCA, CMP, 3040-3, 58936-2 #### [facility] ([id number]) [address] [place] [address] 64349 Calcium [Mass/Vol] 9.1 mg/dL Normal 8.5-10.5 [facility] Comment on above: Performed By: #### C BCA, CMP, 3040-3, 84695-6 #### [facility] ([id number]) [address] [place] [address] 54650 Chloride [Moles/Vol] 96 mmol/L Low 98-109 [facility] Comment on above: Performed By: #### C BCA, CMP, 3040-3, 07968-3 #### [facility] ([id number]) [address] [place] [address] 56808 CO2 [Moles/Vol] 24 mmol/L Normal 22-32 [facility] Comment on above: Performed By: #### C ALEXANDRIA ANTOINE, 3040-3, 38090-2 #### [facility] ([id number]) [address] [place] [address] 91834 Creatinine [Mass/Vol] 0.91 mg/dL Normal 0.70-1.20 [facility] Comment on above: Result Comment: METH OD TRACEABLE TO IDMS STANDARD Performed By: #### C ALEXANDRIA ANTOINE, 3040-3, 35888-3 #### [facility] ([id number]) [address] [place] [address] 29762 eGFR (CKD-EPI) NON-RACE DEPENDENT >90 Normal >59 [facility] Comment on above: Result Comment: Reported eGFR is based on the CKD-EPI 2020 equation that does not use a race coefficient. Performed By: #### C ALEXANDRIA ANTOINE, 3040-3, 01861-6 #### [facility] ([id number]) [address] [place] [address] 33096 Glucose [Mass/Vol] 97 mg/dL Normal 65-99 [facility] Comment on above: Performed By: #### C ALEXANDRIA ANTOINE, 3040-3, 78375-2 #### [facility] ([id number]) [address] [place] [address] 77856 Potassium [Moles/Vol] 3.2 mmol/L Low 3.5-5.0 [facility] Comment on above: Performed By: #### C ALEXANDRIA ANTOINE, 3040-3, 87428-9 #### [facility] ([id number]) [address] [place] [address] 26759 Protein [Mass/Vol] 7.2 g/dL Normal 6.0-8.0 [facility] Comment on above: Performed By: #### C ALEXANDRIA ANTOINE, 3040-3, 26360-6 #### [facility] ([id number]) [address] [place] [address] 74998 Sodium [Moles/Vol] 129 mmol/L Low 134-146 [facility] Comment on above: Performed By: #### C ARASH CMP, 3040-3, 21159-4 #### [facility] ([id number]) [address] [place] [address] 70545 Urea nitrogen [Mass/Vol] 15 mg/dL Normal 5-23 [facility] Comment on above: Performed By: #### C ALEXANDRIA ANTOINE, 3040-3, 00673-3 #### [facility] ([id number]) [address] [place] [address] 34672 LIPASEon 05-15-2024 Lipase [Catalytic activity/Vol] 37 U/L Normal 17-40 [facility] Comment on above: Performed By: #### C ALEXANDRIA ANTOINE, 3040-3, 30522-7 #### [facility] ([id number]) [address] [place] [address] 62588 Lactate (P cherie) [Moles/Vol]o n 05-15-2024 LACTATE W/REFLEX 1.0 mmol/L Normal 0.4-2.0 [facility] Comment on above: Result Comment: Result did not trigger repeat Lactate, re-order if needed. Performed By: #### 3 2133-1 #### [facility] ([id number]) [address] [place] [address] 84258 Troponin I.cardiac High sens itivity method [Mass/Vol]on 05-15-2024 1 HOUR TROP I, HIGH SENSITIVITY 3 ng/L Normal <21 [facility] Comment on above: Performed By: #### 8 9579-7 #### [facility] ([id number]) [address] [place] [address] 54984 TROPONIN I, HIGH SENSITIVITY 3 ng/L Normal <21 [facility] Comment on above: Performed By: #### C BCA, CMP, 3040-3, 19286-2 #### [facility] ([id number]) [address] [facility] [place] [address] Bacteria [Presence] in Urine by AutomatedOrdered By: Nish Davidson on 03-03-2024 Bacteria Auto Ql (U) None seen [HPF] None Seen [facility] Basophils Auto (Bld) [#/Vol] Ordered By: James De on 03-03-2024 Basophils (Bld) [#/Vol] 0.0 10*3/uL 0.0-0.2 [facility] Basophils/100 WBC Auto (Bld) Ordered By: James De on 03-03-2024 Basophils/100 WBC (Bld) 0.4 % . [facility] Bilirubin Test strip Ql (U)O rdered By: Nish Davidson on 03-03-2024 Bilirubin Ql (U) Negative Negative [facility] Calcium [Mass/volume] in Ser um or PlasmaOrdered By: James De on 03-03-2024 Calcium [Mass/Vol] 9.5 mg/dL 8.6-10.3 [facility] Carbon dioxide, total [Moles /volume] in Serum or PlasmaOrdered By: James De on 03-03-2024 CO2 [Moles/Vol] 25.3 mmol/L 21.0-31.0 [facility] Chloride [Moles/volume] in S dereje or PlasmaOrdered By: James De on 03-03-2024 Chloride [Moles/Vol] 102 mmol/L 98-107 [facility] Color Auto (U)Ordered By: Dimitry Davidson on 03-03-2024 Color (U) Yellow Yellow [facility] Creatinine [Mass/volume] in Serum or PlasmaOrdered By: James De on 03-03-2024 Creatinine [Mass/Vol] 1.18 mg/dL 0.70-1.30 [facility] Eosinophils Auto (Bld) [#/Vo l]Ordered By: James De on 03-03-2024 Eosinophils (Bld) [#/Vol] 0.2 10*3/uL 0.0-0.45 [facility] Eosinophils/100 WBC Auto (Bl d)Ordered By: James De on 03-03-2024 Eosinophils/100 WBC (Bld) 2.6 % . [facility] Epithelial cells.squamous [# /area] in Urine sediment by Automated countOrdered By: Nish Davidson on 03-03-2024 Epithelial cells.squamous Auto (Urine sed) [#/Area] 1-2 [HPF] 0-2 [facility] Erythrocyte distribution wid th Auto (RBC) [Ratio]Ordered By: James De on 03-03-2024 Erythrocyte distribution width (RBC) [Ratio] 12.6 % 12.0-14.8 [facility] Erythrocytes [#/area] in Uri ne sediment by Automated countOrdered By: Nish Davidson on 03-03-2024 RBC Auto (Urine sed) [#/Area] None seen [HPF] 0-4 [facility] Glucose [Mass/volume] in Ser um or PlasmaOrdered By: James De on 03-03-2024 Glucose [Mass/Vol] 83 mg/dL 70-100 [facility] Comment on above: ADA recommended refe rence rangeRandom Glucose Reference Range is dependent on time and content of last meal. Glucose of more than 200 mg/dL in a nonstressed, ambulatory subject supports the diagnosis of Diabetes Mellitus. Glucose [Mass/volume] in Uri ne by Test stripOrdered By: Nish Davidson on 03-03-2024 Glucose Test strip (U) [Mass/Vol] Normal mg/dL Normal [facility] Hematocrit Auto (Bld) [Volum e fraction]Ordered By: James De on 03-03-2024 Hematocrit (Bld) [Volume fraction] 52.6 % High 38.8-50.0 [facility] Hemoglobin Test strip Ql (U) Ordered By: Nish Davidson on 03-03-2024 Hemoglobin Ql (U) Negative Negative [facility] Hemoglobin [Mass/volume] in BloodOrdered By: James De on 03-03-2024 Hemoglobin (Bld) [Mass/Vol] 18.5 g/dL High 13.0-17.0 [facility] Hyaline casts [#/area] in Ur ine sediment by Automated countOrdered By: Nish Davidson on 03-03-2024 Hyaline casts Auto (Urine sed) [#/Area] 0-8 [LPF] 0-8 [facility] Ketones Test strip Ql (U)Ord ered By: Nish Davidson on 03-03-2024 Ketones Ql (U) 2+ High Negative [facility] Leukocyte esterase [Presence ] in Urine by Test stripOrdered By: Nish Davidson on 03-03-2024 Leukocyte esterase Test strip Ql (U) Negative Negative [facility] Leukocytes [#/area] in Urine sediment by Automated countOrdered By: Nish Davidson on 03-03-2024 WBC Auto (Urine sed) [#/Area] 1-2 [HPF] 0-4 [facility] Leukocytes [#/volume] correc ernst for nucleated erythrocytes in Blood by Automated counOrdered By: James De on 03-03-2024 WBC corrected for nucl RBC Auto (Bld) [#/Vol] 9.0 10*3/uL 4.1-10.5 [facility] Lymphocytes Auto (Bld) [#/Vo l]Ordered By: James De on 03-03-2024 Lymphocytes (Bld) [#/Vol] 1.2 10*3/uL 1.00-4.8 [facility] Lymphocytes/100 WBC Auto (Bl d)Ordered By: James De on 03-03-2024 Lymphocytes/100 WBC (Bld) 13.4 % . [facility] MCH Auto (RBC) [Entitic mass ]Ordered By: James De on 03-03-2024 MCH (RBC) [Entitic mass] 32.8 pg 27.5-35.2 [facility] MCHC Auto (RBC) [Mass/Vol]Or dered By: James De on 03-03-2024 MCHC (RBC) [Mass/Vol] 35.1 g/dL 32.5-35.6 [facility] MCV Auto (RBC) [Entitic vol] Ordered By: James De on 03-03-2024 MCV (RBC) [Entitic vol] 93.4 fL 83.5-101 [facility] Monocyte distribution width [Entitic volume] in Blood by AutomatedOrdered By: James De on 03-03-2024 Monocyte distribution width Auto (Bld) [Entitic vol] 17.08 % 0.00-20.00 [facility] Monocytes Auto (Bld) [#/Vol] Ordered By: James De on 03-03-2024 Monocytes (Bld) [#/Vol] 0.8 10*3/uL 0.0-0.8 [facility] Monocytes/100 WBC Auto (Bld) Ordered By: James De on 03-03-2024 Monocytes/100 WBC (Bld) 8.7 % . [facility] Mucus [Presence] in Urine by AutomatedOrdered By: Nish Davidson on 03-03-2024 Mucus Auto Ql (U) 1+ [LPF] Abnormal [facility] Neutrophils Auto (Bld) [#/Vo l]Ordered By: James De on 03-03-2024 Neutrophils (Bld) [#/Vol] 6.7 10*3/uL 1.8-7.7 [facility] Neutrophils/100 WBC Auto (Bl d)Ordered By: James De on 03-03-2024 Neutrophils/100 WBC (Bld) 74.9 % . [facility] Nitrite Test strip Ql (U)Ord ered By: Nish Davidson on 03-03-2024 Nitrite Ql (U) Negative Negative [facility] No Panel InformationOrdered By: James De on 03-03-2024 Estimated GFR (CKD-EPI) > 60.0 mL/Min [facility] Creatinine Clearance (Chem 68.43 [facility] Nucleated erythrocytes [Pres ence] in Blood by Automated countOrdered By: James De on 03-03-2024 Nucleated RBC Auto Ql (Bld) 0.4 /100{WBC} 0-0.5 [facility] Platelet adequacy [Presence] in Blood by Light microscopyOrdered By: James De on 03-03-2024 Platelets LM Ql (Bld) Normal Normal [facility] Platelet mean volume Auto (B ld) [Entitic vol]Ordered By: James De on 03-03-2024 Platelet mean volume (Bld) [Entitic vol] 8.4 fL 6.6-10.1 [facility] Platelet morphology finding [Identifier] in BloodOrdered By: James De on 03-03-2024 Platelet morphology finding Nom (Bld) Normal Normal [facility] Platelets Auto (Bld) [#/Vol] Ordered By: James De on 03-03-2024 Platelets (Bld) [#/Vol] 207 10*3/uL 150-450 [facility] Potassium [Moles/volume] in Serum or PlasmaOrdered By: James De on 03-03-2024 Potassium [Moles/Vol] 3.7 mmol/L 3.5-5.1 [facility] Protein Test strip (U) [Mass /Vol]Ordered By: Nish Davidson on 03-03-2024 Protein (U) [Mass/Vol] Trace mg/dL High Negative [facility] RBC Auto (Bld) [#/Vol]Ordere d By: James De on 03-03-2024 RBC (Bld) [#/Vol] 5.64 10*6/uL High 3.90-5.60 [facility] RBC morphologyOrdered By: Asad De on 03-03-2024 RBC morphology finding Nom (Bld) Normal Normal [facility] Serum or plasma anion gap de terminationOrdered By: James De on 03-03-2024 Anion gap [Moles/Vol] 12.4 mmol/L 6.0-15.0 [facility] Sodium [Moles/volume] in Ser um or PlasmaOrdered By: James De on 03-03-2024 Sodium [Moles/Vol] 136 mmol/L 136-145 [facility] Specific gravity Test strip (U) [Rel density]Ordered By: Nish Davidson on 03-03-2024 Specific gravity (U) [Rel density] 1.015 1.001-1.030 [facility] Transitional cells [#/area] in Urine by Computer assisted methodOrdered By: Nish Davidson on 03-03-2024 Transitional cells Computer assisted (U) [#/Area] 1-2 [HPF] High 0-1 [facility] Urea nitrogen [Mass/volume] in Serum or PlasmaOrdered By: James De on 03-03-2024 Urea nitrogen [Mass/Vol] 8 mg/dL 7 [facility] Urine appearanceOrdered By: Nish Davidson on 03-03-2024 Appearance (U) Clear Clear [facility] Urobilinogen Test strip (U) [Mass/Vol]Ordered By: Nish Davidson on 03-03-2024 Urobilinogen (U) [Mass/Vol] Normal mg/dL Normal [facility] WBC Auto (Bld) [#/Vol]Ordere d By: James De on 03-03-2024 WBC (Bld) [#/Vol] 9.0 10*3/uL 4.1-10.5 [facility] pH Test strip (U)Ordered By: Nish Davidson on 03-03-2024 pH (U) 6.0 [pH] 5.0-9.0 [facility] Surgical Pathologyon 024 Surgical Pathology Normal [facility] Comment on above: Result Comment: [facility] [address] [place] [address] Surgical Pathology Consultation Patient Name:CHAI ARNOLD:1970 (Age: 53)Gender:MTaken:02/17/2024eported:02/22/2024hysician(s):Jennyfer Augustin MD ([phone])Copy To: Rec. #:[id number]: #[id number] Final Pathologic Diagnosis 1. Colon polyp 55cm: Hyperplastic polyp. 2. Colon polyp 35cm: Tubular adenoma. Report Electronically Signed Out 02/22/2024Keren Bee MD Interpretation performed at [facility], [address] [facility] [address], License number: [id number]. Clinical History Change in bowel habits. Gross Description 1. Received in formalin labeled, CATALINA, 55 cm is a mccray-richardson 0.3 cm soft tissue.. The specimen is filtered and entirely submitted in a single cassette. (1, ns, [id number], m8) SM 2. Received in formalin labeled, SAUMYAFTZ, 35 cm is a pale richardson 0.3 cm the specimen is filtered and entirely submitted in a single cassette. (1, ns, [id number], m8) slm/02/20/2024GR Specimen(s) Received 1: Colon polyp 55cm 2: Colon polyp 35cm Fee Codes(s): 1; 34609 2; 68661 Alanine aminotransferase [En zymatic activity/volume] in Serum or PlasmaOrdered By: Jennyfer Winkler on 01-29-2024 ALT [Catalytic activity/Vol] 24 U/L 7-52 [facility] Albumin [Mass/volume] in Ser um or Plasma by Bromocresol green (BCG) dye binding methoOrdered By: Jennyfer Winkler on 01-29-2024 Albumin BCG dye [Mass/Vol] 4.9 g/dL 3.5-5.7 [facility] Alkaline phosphatase [Enzyma tic activity/volume] in Serum or PlasmaOrdered By: Jennyfer Winkler on 01-29-2024 ALP [Catalytic activity/Vol] 96 U/L 34-104 [facility] Amylase [Enzymatic activity/ volume] in Serum or PlasmaOrdered By: Jennyfer Winkler on 01-29-2024 Amylase [Catalytic activity/Vol] 47 U/L 29-103 [facility] Aspartate aminotransferase [ Enzymatic activity/volume] in Serum or PlasmaOrdered By: Jennyfer Winkler on 01-29-2024 AST [Catalytic activity/Vol] 21 U/L 13-39 [facility] Basophils Auto (Bld) [#/Vol] Ordered By: Jennyfer Winkler on 01-29-2024 Basophils (Bld) [#/Vol] N/A [facility] Basophils/100 WBC Auto (Bld) Ordered By: Jennyfer Winkler on 01-29-2024 Basophils/100 WBC (Bld) N/A [facility] Bilirubin Test strip Ql (U)O rdered By: Jennyfer Winkler on 01-29-2024 Bilirubin Ql (U) Negative Negative [facility] Bilirubin.direct [Mass/volum e] in Serum or PlasmaOrdered By: Jennyfer Winkler on 01-29-2024 Bilirubin.direct [Mass/Vol] 0.10 mg/dL 0.03-0.18 [facility] Bilirubin.total [Mass/volume ] in Serum or PlasmaOrdered By: Jennyfer Winkler on 01-29-2024 Bilirubin [Mass/Vol] 0.8 mg/dL 0.3-1.0 [facility] Calcium [Mass/volume] in Ser um or PlasmaOrdered By: Jennyfer Winkler on 01-29-2024 Calcium [Mass/Vol] 10.2 mg/dL 8.6-10.3 [facility] Carbon dioxide, total [Moles /volume] in Serum or PlasmaOrdered By: Jennyfer Winkler on 01-29-2024 CO2 [Moles/Vol] 26.4 mmol/L 21.0-31.0 [facility] Chloride [Moles/volume] in S dereje or PlasmaOrdered By: Jennyfer Winkler on 01-29-2024 Chloride [Moles/Vol] 98 mmol/L 98-107 [facility] Color Auto (U)Ordered By: Ella Winkler on 01-29-2024 Color (U) Colorless Yellow [facility] Creatinine [Mass/volume] in Serum or PlasmaOrdered By: Jennyfer Winkler on 01-29-2024 Creatinine [Mass/Vol] 1.07 mg/dL 0.70-1.30 [facility] Eosinophils Auto (Bld) [#/Vo l]Ordered By: Jennyfer Winkler on 01-29-2024 Eosinophils (Bld) [#/Vol] N/A [facility] Eosinophils/100 WBC Auto (Bl d)Ordered By: Jennyfer Winkler on 01-29-2024 Eosinophils/100 WBC (Bld) N/A [facility] Eosinophils/100 WBC Manual c nt (Bld)Ordered By: Jennyfer Winkler on 01-29-2024 Eosinophils/100 WBC (Bld) 5 % High 1-3 [facility] Erythrocyte distribution wid th Auto (RBC) [Ratio]Ordered By: Jennyfer Winkler on 01-29-2024 Erythrocyte distribution width (RBC) [Ratio] 12.1 % 12.0-14.8 [facility] Giant platelets/100 leukocyt es [Ratio] in Blood by Manual countOrdered By: Jennyfer Winkler on 01-29-2024 Giant platelets/100 WBC Manual cnt (Bld) [Ratio] 1 /100{WBC} [facility] Globulin Calc (S) [Mass/Vol] Ordered By: Jennyfer Winkler on 01-29-2024 Globulin (S) [Mass/Vol] 3.1 g/dL [facility] Glucose [Mass/volume] in Ser um or PlasmaOrdered By: Jennyfer Winkler on 01-29-2024 Glucose [Mass/Vol] 103 mg/dL High 70-100 [facility] Comment [...] Test strip (U) [Mass/Vol] Normal mg/dL Normal [facility] Hematocrit Auto (Bld) [Volum e fraction]Ordered By: Jennyfer Winkler on 01-29-2024 Hematocrit (Bld) [Volume fraction] 54.1 % High 38.8-50.0 [facility] Hemoglobin Test strip Ql (U) Ordered By: Jennyfer Winkler on 01-29-2024 Hemoglobin Ql (U) Negative Negative [facility] Hemoglobin [Mass/volume] in BloodOrdered By: Jennyfer Winkler on 01-29-2024 Hemoglobin (Bld) [Mass/Vol] 18.9 g/dL High 13.0-17.0 [facility] Ketones Test strip Ql (U)Ord ered By: Jennyfer Winkler on 01-29-2024 Ketones Ql (U) Negative Negative [facility] Leukocyte esterase [Presence ] in Urine by Test stripOrdered By: Jennyfer Winkler on 01-29-2024 Leukocyte esterase Test strip Ql (U) Negative Negative [facility] Leukocytes [#/volume] correc ernst for nucleated erythrocytes in Blood by Automated counOrdered By: Jennyfer Winkler on 01-29-2024 WBC corrected for nucl RBC Auto (Bld) [#/Vol] 6.8 10*3/uL 4.1-10.5 [facility] Lipase [Enzymatic activity/v olume] in Serum or PlasmaOrdered By: Jennyfer Winkler on 01-29-2024 Lipase [Catalytic activity/Vol] 29.0 U/L 11.0-82.0 [facility] Lymphocytes Auto (Bld) [#/Vo l]Ordered By: Jennyfer Winkler on 01-29-2024 Lymphocytes (Bld) [#/Vol] N/A [facility] Lymphocytes/100 WBC Auto (Bl d)Ordered By: Jennyfer Winkler on 01-29-2024 Lymphocytes/100 WBC (Bld) N/A [facility] Lymphocytes/100 WBC Manual c nt (Bld)Ordered By: Jennyfer Winkler on 01-29-2024 Lymphocytes/100 WBC (Bld) 28 % 18-42 [facility] MCH Auto (RBC) [Entitic mass ]Ordered By: Jennyfer Winkler on 01-29-2024 MCH (RBC) [Entitic mass] 32.4 pg 27.5-35.2 [facility] MCHC Auto (RBC) [Mass/Vol]Or dered By: Jennyfer Winkler on 01-29-2024 MCHC (RBC) [Mass/Vol] 35.0 g/dL 32.5-35.6 [facility] MCV Auto (RBC) [Entitic vol] Ordered By: Jennyfer Winkler on 01-29-2024 MCV (RBC) [Entitic vol] 92.7 fL 83.5-101 [facility] Monocyte distribution width [Entitic volume] in Blood by AutomatedOrdered By: Jennyfer Winkler on 01-29-2024 Monocyte distribution width Auto (Bld) [Entitic vol] 18.41 % 0.00-20.00 [facility] Monocytes Auto (Bld) [#/Vol] Ordered By: Jennyfer Winkler on 01-29-2024 Monocytes (Bld) [#/Vol] N/A [facility] Monocytes/100 WBC Auto (Bld) Ordered By: Jennyfer Winkler on 01-29-2024 Monocytes/100 WBC (Bld) N/A [facility] Monocytes/100 WBC Manual cnt (Bld)Ordered By: Jennyfer Winkler on 01-29-2024 Monocytes/100 WBC (Bld) 4 % 2-11 [facility] Neutrophils Auto (Bld) [#/Vo l]Ordered By: Jennyfer Wnikler on 01-29-2024 Neutrophils (Bld) [#/Vol] N/A [facility] Neutrophils/100 WBC Auto (Bl d)Ordered By: Jennyfer Winkler on 01-29-2024 Neutrophils/100 WBC (Bld) N/A [facility] Nitrite Test strip Ql (U)Ord ered By: Jennyfer Winkler on 01-29-2024 Nitrite Ql (U) Negative Negative [facility] No Panel InformationOrdered By: Jennyfer Winkler on 01-29-2024 Estimated GFR (CKD-EPI) > 60.0 mL/Min [facility] Creatinine Clearance (Chem 83.32 [facility] Nucleated erythrocytes [Pres ence] in Blood by Automated countOrdered By: Jennyfer Winkler on 01-29-2024 Nucleated RBC Auto Ql (Bld) N/A [facility] Platelet adequacy [Presence] in Blood by Light microscopyOrdered By: Jennyfer Winkler on 01-29-2024 Platelets LM Ql (Bld) Normal Normal [facility] Platelet mean volume Auto (B ld) [Entitic vol]Ordered By: Jennyfer Winkler on 01-29-2024 Platelet mean volume (Bld) [Entitic vol] 8.1 fL 6.6-10.1 [facility] Platelet morphology finding [Identifier] in BloodOrdered By: Jennyfer Winkler on 01-29-2024 Platelet morphology finding Nom (Bld) Normal Normal [facility] Platelets Auto (Bld) [#/Vol] Ordered By: Jennyfer Winkler on 01-29-2024 Platelets (Bld) [#/Vol] 245 10*3/uL 150-450 [facility] Potassium [Moles/volume] in Serum or PlasmaOrdered By: Jennyfer Winkler on 01-29-2024 Potassium [Moles/Vol] 3.9 mmol/L 3.5-5.1 [facility] Protein Test strip (U) [Mass /Vol]Ordered By: Jennyfer Winkler on 01-29-2024 Protein (U) [Mass/Vol] Negative Negative [facility] Protein [Mass/volume] in Ser um or PlasmaOrdered By: Jennyfer Winkler on 01-29-2024 Protein [Mass/Vol] 8.0 g/dL 6.4-8.9 [facility] RBC Auto (Bld) [#/Vol]Ordere d By: Jennyfer Winkler on 01-29-2024 RBC (Bld) [#/Vol] 5.83 10*6/uL High 3.90-5.60 [facility] RBC morphologyOrdered By: Ella Winkler on 01-29-2024 RBC morphology finding Nom (Bld) Normal Normal [facility] Segmented neutrophils/100 WB C Manual cnt (Bld)Ordered By: Jennyfer Winkler on 01-29-2024 Segmented neutrophils/100 WBC (Bld) 58 % 50-70 [facility] Serum or plasma albumin/glob ulin mass ratioOrdered By: Jennyfer Winkler on 01-29-2024 Albumin/Globulin [Mass ratio] 1.6 {ratio} [facility] Serum or plasma anion gap de terminationOrdered By: Jennyfer Winkler on 01-29-2024 Anion gap [Moles/Vol] 10.5 mmol/L 6.0-15.0 [facility] Serum or plasma non-glucuron idated bilirubin measurement (mass/volume)Ordered By: Jennyfer Winkler on 01-29-2024 Bilirubin.indirect [Mass/Vol] 0.7 mg/dL [facility] Sodium [Moles/volume] in Ser um or PlasmaOrdered By: Jennyfer Winkler on 01-29-2024 Sodium [Moles/Vol] 131 mmol/L Low 136-145 [facility] Specific gravity Test strip (U) [Rel density]Ordered By: Jennyfer Winkler on 01-29-2024 Specific gravity (U) [Rel density] 1.003 1.001-1.030 [facility] Urea nitrogen [Mass/volume] in Serum or PlasmaOrdered By: Jennyfer Winkler on 01-29-2024 Urea nitrogen [Mass/Vol] 6 mg/dL Low 7-25 [facility] Urine appearanceOrdered By: Jennyfer Winkler on 01-29-2024 Appearance (U) Clear Clear [facility] Urobilinogen Test strip (U) [Mass/Vol]Ordered By: Jennyfer Winkler on 01-29-2024 Urobilinogen (U) [Mass/Vol] Normal mg/dL Normal [facility] Variant lymphocytes/100 WBC Manual cnt (Bld)Ordered By: Jennyfer Winkler on 01-29-2024 Variant lymphocytes/100 WBC (Bld) 6 % 0-12 [facility] WBC Auto (Bld) [#/Vol]Ordere d By: Jennyfer Winkler on 01-29-2024 WBC (Bld) [#/Vol] 6.8 10*3/uL 4.1-10.5 [facility] pH Test strip (U)Ordered By: Jennyfer Winkler on 01-29-2024 pH (U) 7.5 [pH] 5.0-9.0 [facility] CBC AUTO DIFFon 03-26-2022 BASO # 0.1 103/ul Normal 0.0-0.1 [facility] Comment on above: Performed By: #### C BC #### [facility] [address] [address] [address] Pravin Travis Basophils/100 WBC (Bld) 0.7 % Normal 0.2-2.0 [facility] Comment on above: Performed By: #### C BC #### [facility] [address] [place] [address] Dr. Pravin Travis EO # 0.6 103/ul Normal 0.0-0.7 [facility] Comment on above: Performed By: #### C BC #### [facility] [address] [place] [address] Dr. Pravin Travis Eosinophils/100 WBC (Bld) 7.4 % Critically high 0.9-7.0 [facility] Comment on above: Performed By: #### C BC #### [facility] [address] [place] [address] Dr. Pravin Travis Erythrocyte distribution width (RBC) [Ratio] 12.3 % Normal 11.0-15.0 [facility] Comment on above: Performed By: #### C BC #### [facility] [address] [place] [address] Dr. Pravin Travis Hematocrit (Bld) [Volume fraction] 47.2 % Normal 42.0-54.0 [facility] Comment on above: Performed By: #### C BC #### [facility] [address] [place] [address] Dr. Pravin Travis Hemoglobin (Bld) [Mass/Vol] 16.2 g/dL Normal 14.0-18.0 [facility] Comment on above: Performed By: #### C BC #### [facility] [address] [place] [address] Dr. Pravin Travis IG # 0.03 10e3/ul Normal 0.00-0.03 [facility] Comment on above: Performed By: #### C BC #### [facility] [address] [place] [address] Dr. Pravin Travis IG % 0.4 % Normal 0.0-0.5 [facility] Comment on above: Performed By: #### C BC #### [facility] [address] [place] [address] Dr. Pravin Travis LYMPH # 2.1 103/ul Normal 1.2-3.8 [facility] Comment on above: Performed By: #### C BC #### [facility] [address] [place] [address] Dr. Pravin Travis Lymphocytes/100 WBC (Bld) 24.3 % Normal 20.5-60.0 [facility] Comment on above: Performed By: #### C BC #### [facility] [address] [place] [address] Dr. Pravin Travis MANUAL DIFF REQ NO Normal [facility] Comment on above: Performed By: #### C BC #### [facility] [address] [place] [address] Dr. Praivn Travis MCH (RBC) [Entitic mass] 32.6 pg Normal 25.9-34.0 [facility] Comment on above: Performed By: #### C BC #### [facility] [address] [place] [address] Dr. Pravin Travis MCHC (RBC) [Mass/Vol] 34.3 g/dL Normal 29.9-35.2 [facility] Comment on above: Performed By: #### C BC #### [facility] [address] [place] [address] Dr. Pravin Travis MCV (RBC) [Entitic vol] 95.0 fL Critically high 80.0-94 .0 [facility] Comment on above: Performed By: #### C BC #### [facility] [address] [place] [address] Dr. Pravin Travis MONO # 0.8 103/ul Normal 0.3-0.8 [facility] Comment on above: Performed By: #### C BC #### [facility] [address] [place] [address] Dr. Pravin Travis Monocytes/100 WBC (Bld) 9.7 % Normal 1.7-12.0 [facility] Comment on above: Performed By: #### C BC #### [facility] [address] [place] [address] Dr. Pravin Travis NEUT # 4.9 103/ul Normal 1.4-6.5 [facility] Comment on above: Performed By: #### C BC #### [facility] [address] [place] [address] Dr. Pravin Travis Neutrophils/100 WBC (Bld) 57.5 % Normal 43.0-75.0 [facility] Comment on above: Performed By: #### C BC #### [facility] [address] [place] [address] Dr. Pravin Travis Platelet mean volume (Bld) [Entitic vol] 10.4 fL Normal 9.5-13.5 [facility] Comment on above: Performed By: #### C BC #### [facility] [address] [place] [address] Dr. Pravin Travis PLT 215 103/ul Normal 150-450 [facility] Comment on above: Performed By: #### C BC #### [facility] [address] [place] [address] Dr. Pravin Travis RBC 4.97 106/ul Normal 4.70-6.10 [facility] Comment on above: Performed By: #### C BC #### [facility] [address] [place] [address] Dr. Pravin Travis WBC 8.6 103/ul Normal 4.0-11.0 [facility] Comment on above: Performed By: #### C BC #### [facility] [address] [place] [address] ABD/PELV W CONon [...] by: ALANA MORROW Date: 2022-03-26 01:45 Normal [facility] ER URINE PROFILEon 2 Bilirubin Ql (U) Negative Normal NEGATIVE [facility] Comment on above: Performed By: #### E RUR #### [facility] [address] [place] [address] Dr. Pravin Travis Clarity (U) SL CLOUDY Abnormal CLEAR [facility] Comment on above: Performed By: #### E RUR #### [facility] [address] [place] [address] Dr. Pravin Travis Color (U) LT. YELLOW Normal YELLOW [facility] Comment on above: Performed By: #### E RUR #### [facility] [address] [place] [address] Dr. Pravin Travis ERUAHMayi A micrscopic examination will be performed if indicated. Normal [facility] Comment on above: Performed By: #### E RUR #### [facility] [address] [place] [address] Dr. Pravin Travis Glucose Ql (U) Negative Normal NEGATIVE [facility] Comment on above: Performed By: #### E RUR #### [facility] [address] [place] [address] Dr. Pravin Travis Hemoglobin Ql (U) Negative Normal NEGATIVE [facility] Comment on above: Performed By: #### E RUR #### [facility] [address] [place] [address] Dr. Pravin Travis Ketones Ql (U) Negative Normal NEGATIVE [facility] Comment on above: Performed By: #### E RUR #### [facility] [address] [place] [address] Dr. Pravin Travis LEUKOCYTES Negative Normal NEGATIVE [facility] Comment on above: Performed By: #### E RUR #### [facility] [address] [place] [address] Dr. Pravin Travis Nitrite Ql (U) Negative Normal NEGATIVE [facility] Comment on above: Performed By: #### E RUR #### [facility] [address] [place] [address] Dr. Pravin Travis pH (U) 7.5 [pH] Normal 5-9 [facility] Comment on above: Performed By: #### E RUR #### [facility] [address] [place] [address] Dr. Pravin Travis SPEC GRAVITY 1.015 Normal 1.005-<=1.02 5 [facility] Comment on above: Performed By: #### E RUR #### [facility] [address] [place] [address] Dr. Praivn Travis UA PROTEIN Negative Normal NEGATIVE/ TRACE [facility] Comment on above: Performed By: #### E RUR #### [facility] [address] [place] [address] Dr. Pravin Travis UR MICRO IND NOT INDICATED Normal [facility] Comment on above: Performed By: #### E RUR #### [facility] [address] [place] [address] Dr. Pravin Travis Urobilinogen Qn (U) 0.2 {Katie'U}/dL Normal 0.2 - 1. 0 [facility] Comment on above: Performed By: #### E RUR #### [facility] [address] [address] [address] Pravin Travis PROF 14(COMP METB)on 022 Albumin [Mass/Vol] 4.3 g/dL Normal 3.4-5.0 [facility] Comment on above: Performed By: #### C MP #### [facility] [address] [address] [address] Pravin Travis Albumin/Globulin [Mass ratio] 1.3 {ratio} Normal [facility] Comment on above: Performed By: #### C MP #### [facility] [address] [place] [address] Dr. Pravin Travis ALP [Catalytic activity/Vol] 92 U/L Normal 46-116 [facility] Comment on above: Performed By: #### C MP #### [facility] [address] [place] [address] Dr. Pravin Travis ALT [Catalytic activity/Vol] 31 U/L Normal 16-63 [facility] Comment on above: Performed By: #### C MP #### [facility] [address] [place] [address] Dr. Pravin Travis Anion gap [Moles/Vol] 10.9 mmol/L Normal [facility] Comment on above: Performed By: #### C MP #### [facility] [address] [place] [address] Dr. Pravin Travis AST [Catalytic activity/Vol] 31 U/L Normal 15-37 [facility] Comment on above: Performed By: #### C MP #### [facility] [address] [place] [address] Dr. Pravin Travis Bilirubin [Mass/Vol] 0.5 mg/dL Normal 0.2-1.0 [facility] Comment on above: Performed By: #### C MP #### [facility] [address] [place] [address] Dr. Pravin Travis Calcium [Mass/Vol] 9.3 mg/dL Normal 8.5-10.1 [facility] Comment on above: Performed By: #### C MP #### [facility] [address] [address] [address] Pravin Travis Chloride [Moles/Vol] 103 mmol/L Normal 98-107 [facility] Comment on above: Performed By: #### C MP #### [facility] [address] [place] [address] Dr. Pravin Travis CO2 [Moles/Vol] 29.8 mmol/L Normal 21.0-32.0 [facility] Comment on above: Performed By: #### C MP #### [facility] [address] [place] [address] Dr. Pravin Travis Creatinine [Mass/Vol] 1.22 mg/dL Normal 0.70-1.30 [facility] Comment on above: Performed By: #### C MP #### [facility] [address] [place] [address] Dr. Pravin Travis EGFR-AF TURKS AND CAICOS ISLANDER >60 Normal >=60 [facility] Comment on above: Performed By: #### C MP #### [facility] [address] [place] [address] Dr. Pravin Travis EGFR-NON AF TURKS AND CAICOS ISLANDER >60 Normal >=60 [facility] Comment on above: Performed By: #### C MP #### [facility] [address] [place] [address] Dr. Pravin Travis Globulin (S) [Mass/Vol] 3.4 g/dL Normal [facility] Comment on above: Performed By: #### C MP #### [facility] [address] [address] [address] Pravin Travis Glucose [Mass/Vol] 91 mg/dL Normal 74-106 [facility] Comment on above: Performed By: #### C MP #### [facility] [address] [place] [address] Dr. Pravin Travis Potassium [Moles/Vol] 3.7 mmol/L Normal 3.5-5.1 [facility] Comment on above: Performed By: #### C MP #### [facility] [address] [place] [address] Dr. Pravin Travis Protein [Mass/Vol] 7.7 g/dL Normal 6.4-8.2 [facility] Comment on above: Performed By: #### C MP #### [facility] [address] [address] [address] Pravin Travis Sodium [Moles/Vol] 140 mmol/L Normal 136-145 [facility] Comment on above: Performed By: #### C MP #### [facility] [address] [address] [address] Pravin Travis Urea nitrogen [Mass/Vol] 11.0 mg/dL Normal 7.0-18.0 [facility] Comment on above: Performed By: #### C MP #### [facility] [address] [place] [address] Dr. Pravin Travis Urea nitrogen/Creatinine [Mass ratio] 9.0 mg/mg Normal [facility] Comment on above: Performed By: #### C MP #### [facility] [address] [place] [address] Dr. Pravin Travis COVID Quick Testingon 2021 Result Positive [employer] Other COVID Quick Testingon 2020 Result Negative [employer] Other Quick Fluon 08-11-2021 FLUAV Ab CF (S) [Titer] Negative [employer] Other FLUBV Ab CF (S) [Titer] Negative [employer] Other Vital Signs Date Time Vital Sign Value Performing Clinician Facility 03-19-2025 16:30-0400 Diastolic blood pressure 113 mm[Hg] Cisco Furlong DO Work Phone: [facility] 03-19-2025 16:30-0400 Heart rate 76 /min Cisco [employer] DO Work Phone: [facility] 03-19-2025 16:30-0400 Respiratory rate 16 /min [employer] DO Work Phone: [facility] 03-19-2025 16:30-0400 SaO2% (BldA) [Mass fraction] 97 % Cisco Furlong DO Work Phone: [facility] 03-19-2025 16:30-0400 Systolic blood pressure 143 mm[Hg] Cisco Furlong DO Work Phone: [facility] 03-19-2025 16:00-0400 Body temperature 96.8 [degF] Cisco Furlong DO Work Phone: [facility] 03-19-2025 11:36-0400 Body height 172.72 cm Cisco Furlong DO Work Phone: [facility] 03-19-2025 11:36-0400 Body weight 90.9 kg Cisco Furlong DO Work Phone: [facility] 02-28-2025 12:24-0400 Body height 175.3 cm Lydia Sankovic PA-C Work Phone: [facility] 02-28-2025 12:24-0400 Body mass index (BMI) [Ratio] 29.53 kg/m2 Lydia Sankovic PA-C Work Phone: [facility] 02-28-2025 12:24-0400 Body temperature 97 [degF] Lydia Sankovic PA-C Work Phone: [facility] 02-28-2025 12:24-0400 Body weight 90.72 kg Lydia Sankovic PA-C Work Phone: [facility] 02-28-2025 12:24-0400 Diastolic blood pressure 93 mm[Hg] Lydia Sankovic PA-C Work Phone: [facility] 02-28-2025 12:24-0400 Heart rate 76 /min Lydia Sankovic PA-C Work Phone: [facility] 02-28-2025 12:24-0400 SaO2% (BldA) [Mass fraction] 97 % Lydia Sankovic PA-C Work Phone: [facility] 02-28-2025 12:24-0400 Systolic blood pressure 141 mm[Hg] Lydia Noelle ALAN-Remberto Work Phone: [facility] 02-18-2025 13:45-0400 Body height 172.72 cm Cisco Furlong DO Work Phone: [facility] 02-18-2025 13:45-0400 Body mass index (BMI) [Ratio] 28.8 kg/m2 Cisco Furlong DO Work Phone: [facility] 02-18-2025 13:45-0400 Body weight 86.18 kg Cisco Furlong DO Work Phone: [facility] 01-09-2025 12:53-0400 Diastolic blood pressure 109 mm[Hg] Mohamad Mouchli [facility] 01-09-2025 12:53-0400 Mean blood pressure 131 mm[Hg] Mohamad Mouchli [facility] 01-09-2025 12:53-0400 Systolic blood pressure 174 mm[Hg] Mohamad Mouchli [facility] 01-09-2025 12:43-0400 Blood Pressure Location Mohamad Mouchli [facility] 01-09-2025 12:43-0400 Diastolic blood pressure 117 mm[Hg] Mohamad Mouchli [facility] 01-09-2025 12:43-0400 Heart rate 80 /min Mohamad Mouchli [facility] 01-09-2025 12:43-0400 Systolic blood pressure 179 mm[Hg] Mohamad Mouchli [facility] 12-10-2024 13:07-0400 Body height 172.7 cm Cisco Furlong DO Work Phone: [facility] 12-10-2024 13:07-0400 Body mass index (BMI) [Ratio] 29.47 kg/m2 Cisco Furlong DO Work Phone: [facility] 12-10-2024 13:07-0400 Body temperature 98.4 [degF] Cisco Furlong DO Work Phone: [facility] 12-10-2024 13:07-0400 Body weight 87.91 kg Cisco Furlong DO Work Phone: [facility] 12-10-2024 13:07-0400 Diastolic blood pressure 90 mm[Hg] Cisco Furlong DO Work Phone: [facility] 12-10-2024 13:07-0400 Heart rate 102 /min Cisco Furlong DO Work Phone: [facility] 12-10-2024 13:07-0400 Respiratory rate 18 /min Cisco Furlong DO Work Phone: [facility] 12-10-2024 13:07-0400 SaO2% (BldA) [Mass fraction] 97 % Cisco Furlong DO Work Phone: [facility] 12-10-2024 13:07-0400 Systolic blood pressure 140 mm[Hg] Cisco Furlong DO Work Phone: [facility] 09-11-2024 14:23-0500 Body height 172.7 cm Cisco Furlong DO Work Phone: [facility] 09-11-2024 14:23-0500 Body mass index (BMI) [Ratio] 28.89 kg/m2 Cisco Furlong DO Work Phone: [facility] 09-11-2024 14:23-0500 Body temperature 97.9 [degF] Cisco Furlong DO Work Phone: [facility] [employer] [facility] 09-11-2024 14:23-0500 Body weight 86.18 kg Cisco Furlong DO Work Phone: [facility] [employer] [facility] 09-11-2024 14:23-0500 Diastolic blood pressure 90 mm[Hg] Cisco Furlong DO Work Phone: [facility] [employer] [facility] 09-11-2024 14:23-0500 Heart rate 105 /min Cisco Furlong DO Work Phone: [facility] [employer] [facility] 09-11-2024 14:23-0500 Respiratory rate 20 /min Cisco Furlong DO Work Phone: [facility] 09-11-2024 14:23-0500 SaO2% (BldA) [Mass fraction] 99 % Cisco Furlong DO Work Phone: [facility] 09-11-2024 14:23-0500 Systolic blood pressure 140 mm[Hg] Cisco Furlong DO Work Phone: [facility] 03-15-2024 16:08-0400 Body height 172.7 cm Cisco Furlong DO Work Phone: [facility] 03-15-2024 16:08-0400 Body mass index (BMI) [Ratio] 27.79 kg/m2 Cisco Furlong DO Work Phone: [facility] 03-15-2024 16:08-0400 Body temperature 97.7 [degF] Cisco Furlong DO Work Phone: [facility] 03-15-2024 16:08-0400 Body weight 82.92 kg Cisco Furlong DO Work Phone: [facility] 03-15-2024 16:08-0400 Diastolic blood pressure 70 mm[Hg] Cisco Furlong DO Work Phone: [facility] 03-15-2024 16:08-0400 Heart rate 79 /min Cisco Furlong DO Work Phone: [facility] 03-15-2024 16:08-0400 SaO2% (BldA) [Mass fraction] 97 % Cisco Furlong DO Work Phone: [facility] 03-15-2024 16:08-0400 Systolic blood pressure 120 mm[Hg] Cisco Furlong DO Work Phone: [facility] 03-03-2024 14:00-0400 Diastolic blood pressure 95 mm[Hg] DO Cisco Furlong Work Phone: [facility] 03-03-2024 14:00-0400 Heart rate 79 /min DO Cisco Furlong Work Phone: [facility] 03-03-2024 14:00-0400 Respiratory rate 18 /min DO Cisco Furlong Work Phone: [facility] 03-03-2024 14:00-0400 SaO2% (BldA) [Mass fraction] 95 % DO Cisco Furlong Work Phone: [facility] 03-03-2024 14:00-0400 Systolic blood pressure 147 mm[Hg] DO Cisco Furlong Work Phone: [facility] 03-03-2024 11:20-0400 Body temperature 98.2 [degF] DO Cisco Furlong Work Phone: [facility] 03-03-2024 11:18-0400 Body height 172.72 cm DO Cisco Furlong Work Phone: [facility] 03-03-2024 11:18-0400 Body weight 80.65 kg DO Cisco Furlong Work Phone: [facility] 02-02-2024 11:29-0400 Body temperature 98.6 [degF] Didi Orzech [facility] 02-02-2024 11:29-0400 Diastolic blood pressure 81 mm[Hg] Didi Orzech [facility] 02-02-2024 11:29-0400 Heart rate 77 /min Didi Orzech [facility] 02-02-2024 11:29-0400 Respiratory rate 16 /min Didi Orzech [facility] 02-02-2024 11:29-0400 Systolic blood pressure 136 mm[Hg] Didi Orzech [facility] 01-30-2024 01:11-0400 Heart rate 159 /min DO Cisco Furlong Work Phone: [facility] 01-30-2024 00:30-0400 Respiratory rate 22 /min DO Cisco Furlong Work Phone: [facility] 01-30-2024 00:30-0400 SaO2% (BldA) [Mass fraction] 97 % DO Cisco Furlong Work Phone: [facility] 01-29-2024 23:38-0400 Diastolic blood pressure 95 mm[Hg] DO Cisco Furlong Work Phone: [facility] 01-29-2024 23:38-0400 Systolic blood pressure 136 mm[Hg] DO Cisco Furlong Work Phone: [facility] 01-29-2024 22:45-0400 Body height 172.72 cm DO Cisco Furlong Work Phone: [facility] 01-29-2024 22:45-0400 Body weight 86.2 kg DO Cisco Furlong Work Phone: [facility] 01-29-2024 22:44-0400 Body temperature 98.3 [degF] DO Cisco Bonilla Work Phone: [facility] 12-09-2023 08:47-0400 Body height 172.7 cm Michelle Francis LOW PRESSURE KETTLE OPERATOR-STRENGTH AND CONDITIONING COACH Work Phone: [facility] [employer] 12-09-2023 08:47-0400 Body mass index (BMI) [Ratio] 30.08 kg/m2 Michelle Tito LOW PRESSURE KETTLE OPERATOR-STRENGTH AND CONDITIONING COACH Work Phone: [employer] 12-09-2023 08:47-0400 Body temperature 98.29 [degF] Michelle Francis LOW PRESSURE KETTLE OPERATOR-STRENGTH AND CONDITIONING COACH [facility] 12-09-2023 08:47-0400 Body weight 89.72 kg Michelle Tito LOW PRESSURE KETTLE OPERATOR-STRENGTH AND CONDITIONING COACH [facility] 12-09-2023 08:47-0400 Diastolic blood pressure 86 mm[Hg] Michelle Tito LOW PRESSURE KETTLE OPERATOR-STRENGTH AND CONDITIONING COACH Work Phone: [employer] 12-09-2023 08:47-0400 Heart rate 82 /min Michelle Tito LOW PRESSURE KETTLE OPERATOR-STRENGTH AND CONDITIONING COACH Work Phone[facility] 12-09-2023 08:47-0400 Respiratory rate 18 /min Michellenisha Francis LOW PRESSURE KETTLE OPERATOR-STRENGTH AND CONDITIONING COACH Work Phone[facility] 12-09-2023 08:47-0400 SaO2% (BldA) [Mass fraction] 96 % Michelle Tito LOW PRESSURE KETTLE OPERATOR-STRENGTH AND CONDITIONING COACH Work Phone: [employer] 12-09-2023 08:47-0400 Systolic blood pressure 120 mm[Hg] Michelle Tito LOW PRESSURE KETTLE OPERATOR-STRENGTH AND CONDITIONING COACH Work Phone: [employer] 09-01-2021 13:30-0500 Body height 172.72 cm Tawnya Andre Other [employer] Other 09-01-2021 13:30-0500 Body mass index (BMI) [Ratio] 31.93 kg/m2 Tawnya Andre Other [employer] Other 09-01-2021 13:30-0500 Body temperature 97.4 [degF] Tawnya Andre Other [employer] Other 09-01-2021 13:30-0500 Body weight 95.26 kg Tawnya Andre Other [employer] Other 09-01-2021 13:30-0500 Respiratory rate 18 /min Tawnya Andre Other [employer] Other 09-01-2021 13:30-0500 SaO2% (BldA) [Mass fraction] 98 % Tawnya Andre Other [employer] Other 08-11-2021 12:00-0500 Body height 172.72 cm Mary Christine Other [employer] Other 08-11-2021 12:00-0500 Body mass index (BMI) [Ratio] 31.93 kg/m2 Mary Christine Other [employer] Other 08-11-2021 12:00-0500 Body temperature 96.9 [degF] Mary King Other [employer] Other 08-11-2021 12:00-0500 Body weight 95.26 kg Mary Christine Other [employer] Other 08-11-2021 12:00-0500 Respiratory rate 18 /min Marygunner King Other [employer] Other 08-11-2021 12:00-0500 SaO2% (BldA) [Mass fraction] 96 % Mary Christine Other [employer] Other Encounters Encounter Date Encounter Type Care Provider Facility Start: 04-23-2025 End: 04-23-2025 ambulatory Vivian Brady Facility:[facility] Start: 04-23-2025 End: 04-23-2025 Patient encounter procedure Vivian Brady [facility] Start: 04-08-2025 End: 04-08-2025 ambulatory Cisco Bonilla DO Work Phone: [facility] Work Phone: Start: 04-08-2025 [...] 04-03-2025 End: 04-03-2025 E-mail encounter from caregiver Lydai Drake PA-C Work Phone: Colorectal Surgery Start: [...] Start: 04-02-2025 End: 04-02-2025 ambulatory LYDIA DUBOISJESSICA Facility:[facility] Start: 03-22-2025 End: 03-27-2025 Refill Cisco Thomason Furlong DO [facility] Comment on above: Anxiety Start: 03-19-2025 End: 03-19-2025 Admission to same day surgery center Ehsan Avina DO -[facility] Start: 03-19-2025 End: 03-19-2025 ambulatory Cisco Furlong DO Work Phone: [facility] Work Phone: Start: 03-18-2025 End: 03-18-2025 Patient encounter procedure Ehsan Avina DO -Pre-Surgical Testing Work Phone: Start: 03-18-2025 End: 03-18-2025 ambulatory Cisco Furlong DO Work Phone: [facility] Work Phone: Start: 03-18-2025 Encounter for preprocedural laboratory examination Ehsan Avina [facility] Start: 03-13-2025 End: 03-13-2025 ambulatory Cisco Furlong DO Work Phone: [facility] Work Phone: Start: 03-13-2025 End: 03-13-2025 Patient encounter procedure Ehsan Avina DO -[facility] Work Phone: Start: 03-13-2025 End: 03-13-2025 Patient encounter procedure Ehsan Avina DO -[facility] Start: 03-13-2025 End: 03-13-2025 ambulatory Cisco Furlong DO Work Phone: [facility] Work Phone: Start: 03-12-2025 Non-patient / Non-visit Ehsan alanis DO -[facility] Work Phone: Start: 03-07-2025 End: 03-07-2025 [...] Start: 02-28-2025 End: 02-28-2025 ambulatory FELIPE ARIAS Facility:[facility] Start: 02-18-2025 End: 02-18-2025 ambulatory Cisco Bonilla DO Work Phone: [facility] Work Phone: Start: 02-18-2025 End: 02-18-2025 Patient encounter procedure Ehsan Avina DO -[facility] Work Phone: Start: 02-11-2025 End: 02-11-2025 [...] Start: 01-24-2025 End: 01-24-2025 [facility]ulatory [facility] Start: 01-24-2025 End: 01-24-2025 Patient encounter procedure Vivian Brady [facility] Start: 01-16-2025 End: 01-16-2025 Transcribe Orders Vivian Brady MD Work Phone: Referring Physician Comment on above: Constipation by outl et dysfunction (Primary Dx); Stress-related physiological response affecting medical condition Start: 01-09-2025 End: 01-09-2025 ambulatory Vivian Brady Facility:[facility] Start: 01-09-2025 End: 01-09-2025 Patient encounter procedure Vivian Brady [facility] Start: 12-31-2024 ambulatory Vivian Brady Facilit y:Satish Start: 12-31-2024 End: 12-31-2024 Telephone encounter Linda Marc CMA [facility] Start: [...] Family Medicine Start: 12-10-2024 End: 12-10-2024 ambulatory [facility] Start: 12-10-2024 Encounter for genera l adult medical examination without abnormal findings [facility] Start: 12-10-2024 End: 12-10-2024 Patient encounter status Cisco Bonilla DO Work Phone: [facility] [employer] Start: 12-10-2024 End: 12-10-2024 Periodic preventive med est patient 40-64yrs Cisco Bonilla DO Work Phone: [facility] Internal Medicine - Family Medicine Comment on above: Well adult exam (Marilynn lawson Dx); Anxiety; Overweight; Iron overload; Encounter for screening for malignant neoplasm of prostate; Ex-smoker; Hypogonadism in male; Severe episode of recurrent major depressive disorder, without psychotic features ([facility]); Irritable bowel syndrome with both constipation and diarrhea Start: 12-10-2024 End: 12-10-[address] [facility] Start: 12-10-2024 Encounter for genera l adult medical examination without abnormal findings [facility] Start: 11-02-2024 End: 11-02-2024 Orders Only Cisco Bonilla DO Work Phone: [facility] Start: 10-15-2024 End: 10-15-2024 Orders [...] 05-15-2024 Emergency department patient visit CISCO BONILLA [facility] Start: 04-04-2024 End: 04-10-2024 Telephone encounter Cisco Bonilla DO Work Phone: [facility] Family [facility] Start: 04-03-2024 End: 04-03-2024 Patient encounter procedure Didi X Orzech [facility] Start: 03-16-2024 End: 03-16-2024 Orders Only [...] Start: 03-15-2024 End: 03-15-2024 ambulatory CISCOCHELSEA BONILLA [facility] Start: 03-14-2024 End: 03-14-2024 Orders Only Cisco Bonilla DO Work Phone: [facility] Start: 03-03-2024 End: 03-03-2024 Emergency department patient visit DO Cisco Bonilla Work Phone: [facility] Work Phone: Start: 02-20-2024 End: 02-20-2024 Orders Only Cisco Bonilla DO Work Phone: [facility] Start: 02-17-2024 End: 02-18-2024 Evaluation and management of inpatient JENNYFER AUGUSTIN [facility] Start: 02-13-2024 End: 02-15-2024 Telephone encounter [...] procedure Didi X Orzech [facility] Start: 01-31-2024 End: 02-01-2024 Telephone encounter Barbara De La Torre CMA [facility] Start: 01-29-2024 End: 01-30-2024 Emergency department patient visit DO Cisco Carrillong Work Phone: [facility] Work Phone: Start: 12-09-2023 End: 12-09-2023 Office outpatient visit 15 minutes Michelle Francis LOW PRESSURE KETTLE OPERATOR-[facility] Work Phone: [facility] Comment on above: Irritable bowel synd chaitanya with constipation (Primary Dx); Gastroesophageal reflux disease, unspecified whether esophagitis present; 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 ([facility]) Start: 03-26-2022 End: 03-26-[address] CISCO BONILLA Facility: Start: 09-01-2021 End: 09-01-2021 ambulatory Tawnya Andre Other [employer] Other Start: 09-01-2021 Office outpatient vi sit 15 minutes Tawnya Andre [facility] Start: 08-11-2021 End: 08-11-2021 ambulatory Mary King Other [employer] Other Start: 08-11-2021 Office outpatient vi sit 15 minutes Mary King [facility] Start: 08-30-2016 End: [...] 02-28-2025 ADULT [facility] Violette Maurer LOW PRESSURE KETTLE OPERATOR.[employer]ING COACH Work Phone: Start: 12-10-2024 Adult depression scr [...] Adult depression scr eening assessment Michelle Francis LOW PRESSURE KETTLE OPERATOR-[employer] COACH Work Phone: Append[facility] [employer] Plan of Treatment Date Care Activity Detail Author Start: 02-16-2034 Screening for malign ant neoplasm of colon [facility] [employer] Start: 12-10-2029 Lipid panel Lipid Screening [facility] Start: 12-10-2029 Prostate specific antigen measurement Prostate Cancer Screening Discussion [facility] Start: 12-11-2027 Diabetes Screening Diabetes Screenin g [facility] Start: 12-10-2025 Administration of varicella zoster vaccine Zoster (Shingles) Vaccine (1 of 2) [employer] [facility] Comment on above: Postponed from 09/04 (Patient Refused) Start: 12-10-2025 Adult BMI Screening Adult BMI Screen ing [facility] Start: 12-10-2025 COVID-19 Vaccine ( season) COVID-19 Vaccine () [facility] Comment on above: Postponed from 04/22 (Patient Refused) Start: 12-10-2025 Depression Screening Depression Scre ening [facility] Start: 12-10-2025 Tobacco Screening Tobacco Screening [facility] Start: 09-11-2025 Adult BMI Screening Adult BMI Screen ing [facility] Start: 09-11-2025 Tobacco Screening Tobacco Screening [facility] Start: 04-22-2025 Influenza vaccination P [facility] Start: 04-02-2025 End: 04-02-2025 Admission to same day surgery center 04/02/2025 11:30 AM EDT [facility] Colorectal Surgery [address] [id number] Lydia Drake PA-C [address] [place] [address] f/u Colorectal Surgery Comment on above: f/u Start: 03-28-2025 End: 03-28-2025 Patient encounter procedure 03/28/2025 1:30 PM EDT OT/PT/Speech Visit [facility] [address] [id number] Belkys Smith, PT, DPT tightness in my rectum, anus i cant push out poop [facility] Comment on above: tightness in my rect um, anus i cant push out poop Start: 03-19-2025 [facility] Start: 03-19-2025 X-ray of right foot [facility] Start: 03-19-2025 XR Foot - right 2 Views [facility] Start: 03-18-2025 [facility] Start: 03-15-2025 End: 03-15-2025 Admission to same day surgery center 03/15/2025 4:30 PM EDT [facility] Colorectal Surgery [address] [address] George Navarrete DO [address] [place] [address] [facility] Colorectal Surgery Comment on above: [employer] Start: 03-15-2025 Adult BMI Screening Adult BMI Screen ing [facility] Start: 03-15-2025 Depression Screening Depression Scre ening [facility] Start: 03-15-2025 Tobacco Screening Tobacco Screening [facility] Start: 03-13-2025 X-ray of right foot XR foot RT min 3 V* [facility] Start: 03-13-2025 XR Foot - right GE 3 Views [facility] Start: 02-21-2025 End: 02-21-2025 Patient encounter procedure 02/21/2025 10:30 AM EDT Office Visit General Surgery [address] [address] Jey Kapadia MD [address] [place] [address] Consult Botox Injection General Surgery Comment on above: Consult Botox Inject ion Start: 02-16-2025 Adult BMI Screening Adult BMI Screen ing [facility] Start: 02-16-2025 Screening for malign ant neoplasm of colon [facility] Start: 02-16-2025 Tobacco Screening Tobacco Screening [facility] Start: 02-05-2025 Tobacco Screening Tobacco Screening [facility] Start: 12-10-2024 End: 12-10-2025 CT Chest for screening WO contrast CT low dose lung screening (Annual) Imaging Routine Ex-smoker Expected: 12/10/2024, Expires: 12/10/2025 [facility] Comment on above: Expected: 12/10/2024 , Expires: 12/10/2025 Start: 12-10-2024 End: 12-10-2024 Patient encounter procedure 12/10/2024 1:00 PM EDT [facility] [address] [place] [address] Cisco Bonilla DO [address], [place] [address] [facility] Start: 12-08-2024 Adult BMI Screening Adult BMI Screen ing [facility] Start: 12-08-2024 Depression Screening Depression Scre ening [facility] Start: 12-08-2024 Tobacco Screening Tobacco Screening [facility] Start: 09-26-2024 End: 09-26-2024 Patient encounter procedure 09/26/2024 2:00 PM EST Office Visit [facility] [address] [place] [address] Aníbal Will, DO [address] [facility] [place] [address] [facility] Start: 06-04-2024 End: 06-04-2024 Patient encounter procedure 06/04/2024 2:15 PM EDT Office Visit [facility] Internal Medicine - Family Medicine [address] [place] [address] Cisco Bonilla DO [address] [place] [address] [facility] Start: 04-22-2024 Covid-19 Vaccine ( season) Covid-19 Vaccine ( season) [facility] Start: 04-22-2024 COVID-19 Vaccine ( season) COVID-19 Vaccine ( season) [facility] Start: 04-22-2024 Influenza vaccination Influenza Vacc ine [facility] Start: 03-15-2024 End: 03-15-2024 Patient encounter procedure 03/15/2024 3:45 PM EDT Office Visit [facility] - [facility] [address] [place] [address] Cisco Bonilla DO [address], [place] [address] [facility] Start: 02-18-2024 Adult BMI Screening Adult BMI Screen ing [facility] Start: 02-18-2024 Depression Screening Depression Scre ening [facility] Start: 02-18-2024 Tobacco Screening Tobacco Screening [facility] Start: 02-17-2024 End: 02-17-2024 Admission to same day surgery center 02/17/2024 2:30 PM EDT - 02/17/2024 3:30 PM EDT Surgery [facility] [address] [place] [phone] Jennyfer Augustin, DO [address] [place] [address] COLONOSCOPY DIAGNOSTIC / SCREENING [79890 (CPT )] [facility] Comment on above: COLONOSCOPY DIAGNOST IC / SCREENING [35801 (CPT )] Start: 02-17-2024 End: 02-17-2024 Colonoscopy flx dx w/collj spec when pfrmd COLONOSCOPY DIAGNOSTIC / SCREENING change in bowel habits 02/17/2024 2:30 PM EDT [facility] Start: 02-17-2024 Subsequent hospital visit by physician 02/17/2024 2:30 PM EDT Hospital Encounter [facility] [address] [place] [phone] Jennyfer Augustin, DO [address] [place] [address] Change in bowel habits (Primary Dx) [facility] Comment on above: Change in bowel habi ts (Primary Dx) Start: 02-16-2024 End: 02-16-2024 ambulatory 02/16/2024 3:50 PM EDT Support Visit [facility] - Pre Admit [address] [place] [id number] [facility] Start: 01-29-2024 CT Abdomen and Pelvi s WO contrast [facility] Start: 01-29-2024 CT of abdomen and pe lvis without contrast CT abdomen pelvis wo con [facility] Start: 10-28-2023 DTaP,Tdap and Td Vaccines (2 - Td or Tdap) DTaP,Tdap and Td Vaccines (2 - Td or Tdap) [facility] Start: 10-28-2023 Urine microalbumin profile DTaP,Tdap,Td Vaccine (2 - Td or Tdap) [facility] Start: 04-22-2023 COVID-19 Vaccine ( season) COVID-19 Vaccine ( season) [facility] Start: 2018 Administration of varicella zoster vaccine Zoster (Shingles) Vaccine (1 of 2) [facility] Start: 2018 Pneumococcal Vaccine : 50+ (1 of 1 - PCV) Pneumococcal Vaccine: 50+ (1 of 1 - PCV) [facility] Start: 2018 Shingrix Vaccine (1 of 2) Shingrix Vaccine (1 of 2) [facility] Start: 2013 Diabetes Screening Diabetes Screenin g [facility] Start: 2013 Prostate specific antigen measurement Prostate Cancer Screening Discussion [facility] Start: 2013 Screening for malign ant neoplasm of colon [facility] Start: 2003 Lipid panel Lipid Screening [facility] Start: 1987 Hepatitis B Vaccine (1 of 3 - 19+ 3-dose series) Hepatitis B Vaccine (1 of 3 - 19+ 3-dose series) [facility] Start: 1987 Pneumococcal Vaccine : 50+ (1 of 2 - PCV) Pneumococcal Vaccine: 50+ (1 of 2 - PCV) [facility] Start: 1987 Shingrix Vaccine (1 of 2) Shingrix Vaccine (1 of 2) [facility] Start: 1987 Urine microalbumin profile DTaP,Tdap,Td Vaccine (1 - Tdap) [facility] Start: 1986 Adult BMI Follow Up Plan Adult BMI Follow Up Plan [facility] Start: 1986 Anxiety Screening Anxiety Screening [facility] Start: 1986 Depression Screening Depression Scre ening [facility] Start: 1986 Hepatitis C screening Hepatitis C Sc juan josé [facility] Start: 1986 HIV screening HIV Screening [facility] End: 09-11-2025 CBC panel - Blood by Automated count CBC Lab Routine Irritable bowel syndrome with both constipation and diarrhea Essential hypertension, benign 1 Occurrences starting 09/11/2024 until 09/11/2025 [facility] Comment on above: 1 Occurrences starti ng 09/11/2024 until 09/11/2025 End: 12-10-2025 CBC panel - Blood by Automated count CBC without diff Lab Routine Hypogonadism in male 1 Occurrences starting 12/10/2024 until 12/10/2025 [facility] Comment on above: 1 Occurrences starti ng 12/10/2024 until 12/10/2025 End: 02-04-2025 Colonoscopy Colonoscopy GI Routine Change in bowel habits Polyp of colon, unspecified part of colon, unspecified type 1 Occurrences starting 02/05/2024 until 02/04/2025 [employer] Work Phone: Comment on above: 1 Occurrences starti ng 02/05/2024 until 02/04/2025 Colonoscopy flx dx w/collj spec when pfrmd COLONOSCOPY DIAGNOSTIC / SCREENING Change in bowel habits [facility] End: 09-11-2025 Comprehensive metabolic 2000 panel - Serum or Plasma Comprehensive metabolic panel Lab Routine Essential hypertension, benign 1 Occurrences starting 09/11/2024 until 09/11/2025 [employer] Comment on above: 1 Occurrences starti ng 09/11/2024 until 09/11/2025 End: 12-10-2025 Comprehensive metabolic 2000 panel - Serum or Plasma Comprehensive metabolic panel Lab Routine Well adult exam 1 Occurrences starting 12/10/2024 until 12/10/2025 [employer] Work Phone: Comment on above: 1 Occurrences starti ng 12/10/2024 until 12/10/2025 End: 12-10-2025 Iron [Mass/volume] in Serum or Plasma Iron level Lab Routine Iron overload 1 Occurrences starting 12/10/2024 until 12/10/2025 [employer] Comment on above: 1 Occurrences starti ng 12/10/2024 until 12/10/2025 End: 12-10-2025 Lipid 1996 panel - Serum or Plasma Lipid profile Lab Routine Well adult exam 1 Occurrences starting 12/10/2024 until 12/10/2025 [employer] Comment on above: 1 Occurrences starti ng 12/10/2024 until 12/10/2025 Patient Education [facility] Work Phone: Patient referral [facility] Work Phone: End: 09-11-2025 Prostatic specific antigen screen Prostatic specific antigen screen Lab Routine Encounter for screening for malignant neoplasm of prostate 1 Occurrences starting 09/11/2024 until 09/11/2025 [employer] Comment on above: 1 Occurrences starti ng 09/11/2024 until 09/11/2025 End: 12-10-2025 Prostatic specific antigen screen Prostatic specific antigen screen Lab Routine Encounter for screening for malignant neoplasm of prostate 1 Occurrences starting 12/10/2024 until 12/10/2025 [employer] Comment on above: 1 Occurrences starti ng 12/10/2024 until 12/10/2025 End: 09-11-2025 TSH with Reflex TSH with Reflex Lab Routine Irritable bowel syndrome with both constipation and diarrhea Essential hypertension, benign Anxiety 1 Occurrences starting 09/11/2024 until 09/11/2025 [employer] Work Phone: Comment on above: 1 Occurrences starti ng 09/11/2024 until 09/11/2025 End: 12-10-2025 TSH with Reflex TSH with Reflex Lab Routine Anxiety Overweight 1 Occurrences starting 12/10/2024 until 12/10/2025 [facility] Comment on above: 1 Occurrences starti ng 12/10/2024 until 12/10/2025 XR Foot - right GE 3 Views [facility] Immunizations Immunization Date Immunization Notes Care Provider Fa cili 06-20-2021 influenza virus vaccine, unspecified formulation Michelle Francis LOW PRESSURE KETTLE OPERATOR-[employer] CONDITION[employer] COACH Work Phone: [facility] 06-20-2021 influenza, injectabl e, quadrivalent, preservative free Michelle Francis LOW PRESSURE KETTLE OPERATOR-[employer] CONDITIONING COACH Work Phone: [employer] [facility] 06-20-2021 SARS-CoV-2 (COVID-19 ) mRNA BNT-162b2 vax Didi Orzech [facility] 12-08-2020 SARS-CoV-2 (COVID-19 ) mRNA BNT-162b2 vax Didi Orzech [facility] 11-18-2020 SARS-CoV-2 (COVID-19 ) mRNA BNT-162b2 vax Didi Orzech [facility] 04-06-2020 influenza virus vaccine, unspecified formulation Didi Orzech [facility] 04-06-2020 influenza, injectabl e, quadrivalent, preservative free Michelle Tito LOW PRESSURE KETTLE OPERATOR-[employer] CONDITION[employer] COACH [facility] 06-07-2019 influenza virus vaccine, unspecified formulation Didi Orzech [facility] 06-07-2019 influenza, injectabl e, quadrivalent, preservative free Michelle Tito LOW PRESSURE KETTLE OPERATOR-[employer] CONDITIONING COACH Work Phone: [facility] [employer] [facility] 10-27-2013 tetanus toxoid, redu brock diphtheria toxoid, and acellular pertussis vaccine, adsorbed Michelle Tito LOW PRESSURE KETTLE OPERATOR-[employer]EN[employer] CONDITIONING COACH Work Phone: [facility] Payers Date Payer Category Payer Self-pay [id number] 2024 Medicaid [id number] 2024 Medicaid [id number] 1968 Unknown [id number] [id number] 1968 Unknown [id number] 2.16.840.1.151676.3.579.2.1285 1968 Unknown [id number] 2.16.840.1.512002.3.579.2.1285 1968 Unknown [id number] 2.16.840.1.357784.3.579.2.1285 1968 Unknown [id number] 2.16.840.1.304193.3.579.2.1285 1968 Unknown [id number] 2.16.840.1.608251.3.579.2.1285 1968 Unknown [id number] 2.16.840.1.702311.3.579.2.1285 1968 Unknown [id number] 2.16.840.1.421365.3.579.2.1285 1968 Unknown [id number] 2.16.840.1.228610.3.579.2.1285 1968 Unknown [id number] 2.16.840.1.789230.3.579.2.7 1968 Unknown [id number] 2.16.840.1.772910.3.579.2. 1968 Unknown [id number] [id number] 1959 Private Health Insurance [id number] Medicaid [id number] Unknown [id number] 2.1 [id number] Unknown [place] [id number] Unknown [id number] 2.16.840.1.545178.3.579.2.531 Unknown [id number] 2.16.840.1.236318.3.579.2.531 Unknown [id number] Social History Date Type Detail Facility Unknown if ever smoked [employer] Other Start: 09-11-2024 End: 02-28-2025 Sex Assigned At [facility] Start: 07-23-1985 End: 03-03-2024 Tobacco smoking status NHIS Smoker (finding) [facility] Start: 1970 Sex Assigned At Male [facility] Start: 02-02-2024 End: 01-24-2025 Tobacco smoking status Ex-smoker (finding) [facility] Start: 11-11-2015 Tobacco smoking status Never [facility] Start: 07-23-1985 End: 12-20-2018 History of tobacco use Cigarette Smoker [facility] Start: 12-09-2023 End: 02-28-2025 Cigarettes smoked current (pack per day) - Reported 1 [facility] History of tobacco use Passive smoker [facility] Start: 12-09-2023 Tobacco use and exposure Smokeless tobacco non-user [facility] Start: 09-11-2024 End: 12-10-2024 Alcoholic beverage intake Current drinker of alcohol (finding) [facility] Has the [employer], or water Make YES! Happen threatened to shut off services in your home in past 12Mo Yes [facility] Are you now , , , , never or living with a partner? Never [facility] How often to you hav e a drink containing alcohol? Monthly or less [facility] How often do you hav e 6 or more drinks on 1 occasion? Less than monthly [facility] How hard is it for y ou to pay for the very basics like food, housing, medical care, and heating Very hard [facility] Do you feel stress - tense, restless, nervous, or anxious, or unable to sleep at night because your mind is troubled all the time - these days [OSQ] Very much [facility] Start: 08-01-2022 Education 14 [facility] Start: 08-04-2022 Tobacco Comment vape, today [facility] Start: 10-12-2019 Alcohol Comment Occasional [facility] Start: 1970 Sex assigned [facility] Start: 03-27-2015 Sex Male (finding) [facility] How many standard drinks containing alcohol do you have on a typical day? 10 or more [facility] Sexual Orientation [facility] Tobacco smoking stat us [facility] Tobacco smoking consumption unknown [facility] Start: 03-03-2024 End: 03-19-2025 Tobacco smoking status LAIS Smokes tobacco daily (finding) [facility] Start: 03-07-2025 Gender identity Identifies as male gender (finding) [facility] Start: 03-07-2025 Sexual orientation Heterosexual (finding) [facility] Medical Equipment Procedure Code Equipment Code Equipment Origin al Text Equipment Identifier Dates ORIF, fracture, wrist Orthopaedic bone screw (non-sliding) ()[id number] [facility] Start: 03-19-2025 Goals Date Patient Goal Desired Activity /State Personal health goal Comment on above: Formatting of this n ote might be different from the original. Evaluation of progress towards goal: with support from friends and family, patient needs to fllow up with [facility] Functional Status Date Assessment Result Facility 01-09-2025 Functional Status N/A [facility] 02-02-2024 Functional Status N/A [facility] Clinical Notes 08-11-2021 to 04-03-2025 Lydia Drake PA-C - 04/03/2025 8:29 AM Lydia Watkins PA-C - 04/02/2025 11:30 AM EDTTelephone Encounter - Lydia Drake PA-C - 03/07/2025 1:37 PM EDTPatient Instructions Note Date & Type Note Facility 04-03-2025 Note HNO ID: [id number] Author: LYDIA DRAKE PA-C Service: ? Author Type: Physician Director Of Optimization Type: Progress Notes Filed: 04/03/2025 08:41 Note [...] Anticipated surgical procedure: none Lydia Drake PA-C [facility] 04-03-2025 History of Presen t illness [...] Lydia Drake PA-C documented in this encounter [facility] 04-02-2025 History of Presen t illness Narrative [...] February 28, 2025. He was referred to [facility] for anorectal manometry by Dr. Brady for [...] laxatives and stool softeners; consider referral to [facility] if unable to see local GI anymore ( was told that [facility] would be managing him from [...] evaluate and manage orthostatic symptoms. Recording using [employer] software for draft documentation of the visit was discussed with the patient/authorized pharmaceutical specialty representative; all questions welcomed and answered. Patient/authorized pharmaceutical specialty representative agreed to proceed JAME Segundo I spent a total of 33 minutes on the date of the service which included preparing to see the patient, [id number] patient care, completing clinical documentation, obtaining and/or reviewing separately obtained history, performing a medically appropriate examination, counseling and educating the patient/family/caregiver, communicating with other HCPs (not separately reported), and care coordination (not separately reported). documented in this encounter [facility] 04-02-2025 Note HNO ID: [id number] Author: LYDIA DRAKE PA-C Service: ? Author Type: Physician Director Of Optimization Type: Progress Notes Filed: 04/02/2025 12:17 Note [...] February 28, 2025. He was referred to [facility] for anorectal manometry by Dr. Brady for [...] trials of Trulanc (more content not included)... [facility] 03-07-2025 Telephone encounter Note Called patient [...] ED with worsening sx. Lydia Drake PA-C [facility] 03-07-2025 Miscellaneous Notes Called patient back. He [...] worsening sx. Lydia Drake PA-C Chai Samuel [phone] Patient contacted the office regarding the baclofen that was prescribed to him. He reported that his back is feeling tighter than before and believes that a taking all these different medications may be causing this side effect. Unsure on what he should do. documented in this encounter [facility] 03-07-2025 Telephone encounter Note Chai Samuel [phone] Patient contacted the office regarding the baclofen that was prescribed to him. He reported that his back is feeling tighter than before and believes that a taking all these different medications may be causing this side effect. Unsure on what he should do. [facility] 02-28-2025 Instructions Lydia Drake PA-C - 02/28/2025 1:31 PM EDT We discussed your chronic constipation and pelvic floor dysfunction: - I recommend starting baclofen suppositories, a muscle relaxer, to help with spasms and pain. Use one suppository as needed, up to twice daily. This prescription has been sent to [facility] in [place]. - Begin pelvic floor physical therapy to [...] for you. To make an appointment through [facility] call : [phone] If you are not close to a [facility] location, you can visit any one of these sites. Just put your zip code in and Pelvic Floor Physical Therapy places near you will populate. - [email or web address] - [email or web address] - [email or web address] - [email or web address] documented in this encounter [facility] 02-28-2025 History and physical note PELVIC FLOOR [...] a compounded preparation from a pharmacy in [place], and previously used hydrocortisone. He has not [...] Weak - Relaxation on pushing: Minimal - Cutting Machine Tender Decorative Present: Yes Cutting Machine Tender Decorative present: Yes, Arabella Assessment Anorectal Physiology tests [...] which included preparing to see the patient, [id number] patient care, completing clinical documentation, obtaining and/or reviewing separately obtained history, performing a medically appropriate examination, counseling and educating the patient/family/caregiver, ordering medications, tests, or procedures, communicating with other HCPs (not separately reported), independently interpreting results (not separately reported), and communicating results to the patient/family/caregiver. Recording using [employer] software for draft documentation of the visit was discussed with the patient/authorized pharmaceutical specialty representative; all questions welcomed and answered. Patient/authorized pharmaceutical specialty representative agreed to proceed [facility] 02-28-2025 History and physical note PELVIC FLOOR [...] a compounded preparation from a pharmacy in [place], and previously used hydrocortisone. He has not [...] Weak - Relaxation on pushing: Minimal - Cutting Machine Tender Decorative Present: Yes Cutting Machine Tender Decorative present: Yes, Arabella Assessment Anorectal Physiology tests [...] which included preparing to see the patient, [id number] patient care, completing clinical documentation, obtaining and/or reviewing separately obtained history, performing a medically appropriate examination, counseling and educating the patient/family/caregiver, ordering medications, tests, or procedures, communicating with other HCPs (not separately reported), independently interpreting results (not separately reported), and communicating results to the patient/family/caregiver. Recording using [employer] software for draft documentation of the visit was discussed with the patient/authorized pharmaceutical specialty representative; all questions welcomed and answered. Patient/authorized pharmaceutical specialty representative agreed to proceed documented in this encounter [facility] 02-18-2025 Evaluation note Diagnosis Onset Date Resolution Fracture of fifth metatarsal bone of right foot acute February 18, 2025 1:30pm Fracture of fifth metatarsal bone of right foot acute March 13, 2025 3:11pm [facility] Work Phone: 1(905) 996-263506-30-2025 Evaluation note* Diagnosis Onset Date Resolution Status Admit Date Fracture of fifth metatarsal bone of right foot acute February 18 1:30pm Fracture of fifth metatarsal bone of right foot acute March 13 3:11pm Fracture of fifth metatarsal bone of right foot acute April 08, 2025 9:12am Other specified postprocedur al states noneactive April 08 9:12am [facility] Work Phone: 1(422) 138-893506-23-2025 Telephone encounter Note* Telephone Encounter - Chelle Christianson - 02/11/2025 9:38 AM EDT Recevied referral from [facility] fot pt referral for botox injections [facility]06-23-2025 Miscellaneous Notes* Telephone Encounter - Chelle Christianson - 02/11/2025 9:38 AM EDT Recevied referral from [facility] fot pt referral for botox injections [facility] Miscellaneous Notes* Telephone Encounter - Linda Marc CMA - 12/31/2024 9:34 AM EDT I called and left message for pt to call back. Regarding his referral to Gastroenterology. George Alcaraz is retired. * Telephone Encounter - Barbara De La Torre CMA - 12/31/2024 9:34 AM EDT Can we send referral to Dr. Moreno in [place] [facility] Telephone encounter Note* Telephone Encounter - Linda Marc CMA - 12/31/2024 9:34 AM EDT I called and left message for pt to call back. Regarding his referral to Gastroenterology. George Alcaraz is retired. [facility]05-12-2025 Telephone encounter Note* Telephone Encounter - Barbara De La Torre CMA - 12/31/2024 9:34 AM EDT Can we send referral to Dr. Moreno in [place] [facility]04-28-2025 Miscellaneous Notes* Telephone Encounter - Barbara De La Torre CMA - 12/17/2024 3:24 PM EDT Patient called and stated he missed his apt in [place] with jaylyn/ent so they will not see him anymore. Can you refer him to someone else. * Telephone Encounter - Cisco Bonilla DO - 12/17/2024 3:24 PM EDT Okay. I sent another referral this time to a fire management officer in [place] -Dr. Alcaraz. If he can not make [...] usually routine to do. documented in this encounterOhio [facility]04-28-2025 Telephone encounter Note* Telephone Encounter - Barbara De La Torre CMA - 12/17/2024 3:24 PM EDT Patient called and stated he missed his apt in [place] with jaylyn/ent so they will not see him anymore. Can you refer him to someone else. [facility]04-28-20[facility] Telephone encounter Note* Telephone Encounter - Cisco Bonilla DO - 12/17/2024 3:24 PM EDT Okay. I sent another referral this time to a fire management officer in [place] -Dr. Alcaraz. If he can not make [...] treatment which is usually routine to do. [facility]04-21-2025 History of Present illness Narrative* Cisco [...] reveal any inflammatory bowel disease. Thegastroenterologist in [place] did not want to see him. He [...] appear clear Nose: Nose normal. Mouth/Throat: Lips: [place]. Mouth: Mucous membranes are moist. Dentition: Abnormal [...] and irritable bowel syndrome. documented in [facility] encounterOhio [facility]03-14-2025 History of Present illness Narrative* Cisco Bonilla DO - 11/02/2024 1:58 PM EDT FORM FOR WELDER/FITTER FILLED OUT documented in this encounterOhio [facility]02-05-2025 Miscellaneous Notes* Telephone Encounter - Marisa Reinoso - 09/26/2024 2:19 PM EST New Patient NS 09/26/2024 * Telephone Encounter - Suki Islas RN - 09/26/2024 2:19 PM EST Discharge entered documented in this encounterOhio [facility]02-05-2025 Telephone encounter Note* Telephone Encounter - Marisa Reinoso - 09/26/2024 2:19 PM EST New Patient NS 09/26/2024 [facility] Telephone encounter Note* Telephone Encounter - Suki Islas RN - 09/26/2024 2:19 PM EST Discharge entered [facility]01-22-2025 Miscellaneous Notes* Telephone Encounter - Betty [...] [facility] documented in this encounterOhio [facility] Hospital01-22-2025 Telephone encounter Note* Telephone Encounter - Betty Wild - 09/12/2024 2:21 PM EST [facility] office is refusing to see him [...] why we referred him to a specialist [facility] [employer] [id number] Telephone encounter Note* Telephone Encounter - Betty Wild - 09/12/2024 2:21 PM EST Can we get this as an urgent referral [facility] [employer] [id number] Telephone encounter Note* Telephone Encounter - Cisco Bonilla DO - 09/12/2024 2:21 PM EST Send a referral to GI specialist at [facility] [employer] [id number] Miscellaneous Notes* Telephone Encounter - Bettygeorge Wild - 09/12/2024 1:47 PM EST Patient called, metamucil is not covered by insurance but they will cover benifiber 240g [facility] [place] documented in this encounterOhio [facility] Hospital01-22-2025 Telephone encounter Note* Telephone Encounter - Betty Wild - 09/12/2024 1:47 PM EST Patient called, metamucil is not covered by insurance but they will cover benifiber 240g [facility] [place] [facility] [id number] History of Present illness Narrative* Cisco Bonilla [...] have an appointment coming up with a fire management officer in September. He had to cancel his last appointment because he was having diarrhea and was afraid to leave the house because he might have an accident. The ER did give him Bentyl which did help. He did not think that less than helped at all. He stopped the FiberCon because it was not helping. He would rather have Metamucil. He called the fire management officer office and they suggested a cleaned out. [...] Exam Vitals reviewed. Exam conducted with a roofing machine tender present (Leilani Han MS 3). Constitutional: General: [...] mouth in the morning. documented in this encounterOhio [facility] Hospital08-14-2024 Miscellaneous Notes* Telephone Encounter - Betty Wild - 04/04/2024 10:24 AM EDT ----- Message from Dr. Cisco Bonilla DO sent at 03/15/2024 7:03 PM EDT ----- Regarding: GI/BP recheck Please set up * Telephone Encounter - Betty Wild - 04/04/2024 10:24 AM EDT Mailbox full * Telephone Encounter - Betty Wild - 04/04/2024 10:24 AM EDT Scheduled documented in this encounterOhio Valley [facility] Hospital08-14-2024 Telephone encounter Note* Telephone Encounter - Betty Wild - 04/04/2024 10:24 AM EDT ----- Message from Dr. Cisco Bonilla DO sent at 03/15/2024 7:03 PM EDT ----- Regarding: GI/BP recheck Please set up [facility] Telephone encounter Note* Telephone Encounter - Betty Saldanagstock - 04/04/2024 10:24 AM EDT Mailbox full [facility]08-14-[facility] Telephone encounter Note* Telephone Encounter - Betty Leseliseokaterine - 04/04/2024 10:24 AM EDT Scheduled [facility]07-25[facility] History of Present illness Narrative* Cisco [...] was getting liquidy stools-6 and 7 on [place] stool scale. He used fiber supplement in [...] mostly liquidy now. He has been to [facility] 3 times. He was given something for [...] needed for pain (cramping). documented in this encounterOhio Valley [facility] Hospital06-24-2024 Miscellaneous Notes* Telephone Encounter - Betty [...] GoLYTELY sent to pharmacy documented in this encounterOhio Valley Surgical Hospital06-24-2024 Telephone encounter Note* Telephone Encounter - Betty Wild - 02/13/2024 12:02 PM EDT Patient said susame is 130 dollars, is there something else he can try or a coupon to use [facility]06-24-2024 Telephone encounter Note* Telephone Encounter - Linda Marc CMA - 02/13/2024 12:02 PM EDT Pt has medicaid My Bad Please SEND in the SUPREP. . [facility]06-24-2024 Telephone encounter Note* Telephone Encounter - Jennyfer Augustin DO - 02/13/2024 12:02 PM EDT Message noted. The only prep that is covered is the old fashioned Golytely prep [facility]06-24-2024 Telephone encounter Note* Telephone Encounter - Gloria Rodriguez CMA - 02/13/2024 12:02 PM EDT He is Medicaid so whatever his insurance covers [facility]06-24-2024 Telephone encounter Note* Telephone Encounter - Jennyfer Augustin DO - 02/13/2024 12:02 PM EDT Message noted. Rx for GoLYTELY sent to pharmacy [facility]06-11-2024 Miscellaneous Notes* Telephone Encounter - Barbara [...] EDT Left message via documented in this encounterOhio Valley Surgical Hospital06-11-2024 Telephone encounter Note* Telephone Encounter - Barbara De La Torre CMA - 01/31/2024 3:09 PM EDT Patient called and was in the ER for Urinary re tension. His bowel movements ar still not good. Since I can not get him in for an ER follow up soon what do you suggest he do? He does see urology on [facility]06-11-2024 Telephone encounter Note* Telephone Encounter - Cisco Bonilla DO - 01/31/2024 3:09 PM EDT He can use MiraLax 17 g in 8 oz of water daily [facility]06-11-2024 Telephone encounter Note* Telephone Encounter - Barbara De La Torre CMA - 01/31/2024 3:09 PM EDT Left message via [facility]04-19-20[facility] History of Present illness Narrative* SYLVESTER Levin - 12/09/2023 9:00 AM EDT [address] [facility] [address] Patient: Chai Arnold Date of : 1970 [...] softeners pencilthin like a 4. On the [place] stool scale and he has tried Metamucil and MiraLax. He denies any hemorrhoids or blood in his stool. His last colonoscopy was 4 years ago that showed polyps and diverticulosis and he knows he is due for another colonoscopy next year. Patient has been struggling with weaning off his Xanax. 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 Resources such as Suboxone Clinic in [place] were given. It was also recommended that he apply at [facility] for primary care services and psychiatric [...] LEVIN APRN-CNP 12/09/23 1230 documented in this encounterSelect [facility] CincinnatiCipherMax [facility] [id number] Evaluation note* Encounter Date Diagnosis Assessment Notes [...] care instructions given in writting by [facility] document. [employer] Other 12-21-2021 Evaluation note* Encounter Date Diagnosis [...] care instructions given in writting by [facility] document. [employer] Other Evaluation + Plan note Future Appointments Appointment Date:04/03/2024 01:00:00 PM Scheduled Provider:JOSEPH Allen APRN, Didi Martin Location:[facility] Appointment Type:URO Office Visit [facility] Cammie Evaluation + Plan note Future Appointments Appointment Date:04/11/2025 10:45:00 AM Scheduled Provider:Vivian Brady MD Location:[facility] Appointment Type[facility] Follow Up [facility] evaluation noteNo assessment information available [facility] Work Phone: evaluation note* Diagnosis Irritable bowel syndrome with both constipation and diarrhea- Primary Essential hypertension, benign Anxiety Anxiety state, unspecified Encounter for screening for malignant neoplasm of prostate [facility] Diagnosis Irritable bowel syndrome with both constipation and diarrhea- Primary [facility] Diagnosis Irritable bowel syndrome with constipation- Primary Irritable bowel syndrome Gastroesophageal reflux disease, unspecified whether esophagitis present 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 ([facility]) [facility] Diagnosis Change in bowel habits- Primary Other symptoms involving digestive system Polyp of colon, unspecified part of colon, unspecified type [facility]* Diagnosis Irritable bowel syndrome with both constipation and diarrhea- Primary Umbilical hernia without obstruction and without gangrene Incisional hernia, without obstruction or gangrene Anal fissure documented in [facility]* Diagnosis Well adult exam- Primary Routine general medical examination at a health care facility Anxiety Anxiety state, unspecified Overweight Iron overload Disorders of iron metabolism Encounter for screening for malignant neoplasm of prostate Ex-smoker Personal history of tobacco use, presenting hazards to health Hypogonadism in male Severe episode of recurrent major depressive disorder, without psychotic features ([facility]) Irritable bowel syndrome with both constipation and diarrhea [facility] [employer] [facility] note* Diagnosis Anal fissure- Primary documented in this encounter [facility]* Diagnosis Irritable bowel syndrome with both constipation and diarrhea- Primary documented in this encounter [facility] [facility] Diagnosis Chronic idiopathic constipation- Primary Unspecified constipation Hepatitis C virus infection without hepatic coma, unspecified chronicity documented in this encounter [facility] Diagnosis 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 Outlet dysfunction constipation Stress-related physiological response affecting medical condition Psychic factors associated with diseases classified elsewhere documented in this encounter [facility] Diagnosis Onset Date Resolution Status Admit Date Fracture of fifth metatarsal bone of right foot acute February 18, 2025 1:30pm [facility] Work Phone: Evaluation note* Diagnosis Pelvic floor dysfunction Pelvic muscle wasting Pelvic floor dysfunction- Primary Pelvic muscle wasting Rectal spasm Anal spasm Constipation, unspecified constipation type documented in this encounter [facility] Diagnosis Pelvic floor dysfunction- Primary Pelvic muscle wasting Rectal spasm Anal spasm Constipation, unspecified constipation type documented in this encounter [facility] Diagnosis Anxiety Anxiety state, unspecified documented in this encounter [facility] Diagnosis Constipation, unspecified constipation type- Primary Rectal spasm Anal spasm Pelvic floor dysfunction Pelvic muscle wasting Anxiety Anxiety state, unspecified Distressed about housing issues Other specified housing or economic circumstances Orthostatic dizziness documented in this encounter [facility] note* Diagnosis Rectal spasm- Primary Anal spasm Constipation, unspecified constipation type Pelvic floor dysfunction Pelvic muscle wasting Anxiety Anxiety state, unspecified Chronic abdominal pain Abdominal pain, unspecified site Chronic rectal pain Anal or rectal pain documented in this encounter [facility] general Narrative - Reported* Type Description Date Medical History insomnia Medical History anxiety Medical History HTN Surgical History appendix removed Surgical History compartment syndrome left hand 2016 Hospitalization History see surgical hx [employer] Other Hospital course Narrative No data available for this section [facility] Hospital Discharge instructions Additional Instructions Wear leg bag with [place] catheter [facility] with [facility]rology [facility] are [facility] Discharge instructions No data available for this section [facility] Hospital Discharge instructions Additional Instructions Dr. [...] wearing your boot. You may take NSAIDs/Tylenol [id number] as indicated on the bottle. You should [...] be scheduled with Dr. Avina's office at [facility]. At your follow-up we will remove your splint and sutures. Please call to confirm your follow-up appointment. Dr. Ehsan Avina [facility] [address] [place] [address] [facility] Work Phone: Instructions* Attachments The following attachments cannot be sent through Care Everywhere. * IBS Diet (Nepali) documented in this encounterProDonnorwood Media Health SystemInstructionsNot on file documented in this encounterProAvita Health SystemIM-Sense SystemInstructionsNot on file documented in this encounterProAvita Health SystemCipherMax Health SystemInstructionsNot on file documented in this encounterProDonnorwood Media Health SystemInstructionsNot on file documented in this encounterProDonnorwood Media Health SystemInstructionsNot on file documented in this encounterProAvita Health SystemCipherMax Health SystemInstructionsNot on file documented in this encounterProAvita Health SystemIM-Sense SystemInstructionsNot on file documented in this encounterProAvita Health SystemCipherMax Health SystemInstructionsNot on file documented in this encounterProAvita Health SystemCipherMax Health SystemInstructionsNot on file documented in this encounterProAvita Health SystemIM-Sense SystemInstructionsNot on file documented in this encounterProMedica Health SystemInstructionsNot on file documented in this encounterProMedica Health SystemInstructionsNot on file documented in this encounterProMedica Health SystemInstructionsNot on file documented in this encounterProAvita Health Systemca Health SystemProgress note No data available for this section [facility] [place] Reason for referral (narrative)* Medication Prior Authorization - Pending Review Specialty Diagnoses / Procedures Referred By Contac t Referred To Contact Cisco Bonilla DO [address] [facility], [place] [address] Phone: tel: fax: Referral ID Status Reason Start Date Expiration Date V isits Requested Visits Authorized [id number] Pending Review 1 1 [facility] SystemReason for referral (narrative)* Medication Prior Authorization - Pending Review Specialty Diagnoses / Procedures Referred By Contac t Referred To Contact Cisco Bonilla DO [address] [facility], [place] [address] Phone: tel: fax: Referral ID Status Reason Start Date Expiration Date V isits Requested Visits Authorized [id number] Pending Review 1 1 [facility] SystemReason for referral (narrative)* Medication Prior Authorization - Pending Review Specialty Diagnoses / Procedures Referred By Contac t Referred To Contact Cisco Bonilla DO [address] [facility], [place] [address] Phone: tel: fax: Referral ID Status Reason Start Date Expiration Date V isits Requested Visits Authorized [id number] Pending Review 1 1 [facility] SystemReason for referral (narrative)No reason for referral information availableCoshocton [facility] Work Phone: Summary Purpose [...] To Contact Cisco Bonilla, [address] [facility], [place] [address] Referral ID Status Reason Start Date Expiration Date V isits Requested Visits Authorized [id number] Pending Review 03/14/2024 03/14/2025 1 1 Specialty Diagnoses / Procedures Referred By Contac t Referred To Contact Diagnoses Change in bowel habits Polyp of colon, unspecified part of colon, unspecified type Procedures Colonoscopy Cisco Bonilla, DO [address] [place] [address] Referral ID Status Reason Start Date Expiration Date V isits Requested Visits Authorized [id number] Pending Review 02/05/2024 02/04/2025 1 1 Additional Source Comments (unrecognized sect ion and content) No Status Records FoundNo Status Records FoundNo Status Records FoundNo Status Records FoundNo Status Records FoundNo Status Records FoundNo Status Records FoundNo Status Records Found INFORMATION SOURCE (unrecogn ized section and content) DATE CREATED AUTHOR 02/14/2018 [facility] DATE CREATED AUTHOR AUTHOR'S ORGANIZ ATION 03/29/2022 [facility] DATE CREATED AUTHOR AUTHOR'S ORGANIZ ATION 05/18/2024 [facility] DATE CREATED AUTHOR AUTHOR'S ORGANIZ ATION [facility]/10/20[facility] DATE CREATED AUTHOR AUTHOR'S ORGANIZ ATION 12/11/2024 [facility] DATE CREATED AUTHOR AUTHOR'S ORGANIZ ATION 03/31/2025 [facility] DATE CREATED AUTHOR AUTHOR'S ORGANIZ ATION 04/03/2025 [facility] DATE CREATED AUTHOR AUTHOR'S ORGANIZ ATION [...] INSTITUTE Diagnoses Pelvic floor dysfunction Procedures ADULT [place] ANORECTAL MANOMETRY ANORECTAL MANOMETRY Violette Maurer APRN.STRENGTH AND CONDITIONING COACH [address] [place] [address] Phone: tel: fax: [facility] [address] [place] [address] Referral ID Status Reason Start Date Expiration Date V isits Requested Visits Authorized [id number] Closed Auto-Generate d Referral 02/21/2025 08/21/2025 1 1 Reason Comments New Patient Pelvic floor dysfunc tion Specialty Diagnoses / Procedures Referred By Contac t Referred To Contact [facility] Diagnoses Pelvic floor dysfunction Procedures ADULT [place] ANORECTAL MANOMETRY ANORECTAL MANOMETRY Violette Maurer APRN.STRENGTH AND CONDITIONING COACH [address] [place] [address] Phone: tel: fax: [facility] [address] [place] [address] Referral ID Status Reason Start Date Expiration Date V isits Requested Visits Authorized [id number] Closed Auto-Generate d Referral 02/21/2025 08/21/2025 1 [...] March 03, 2024 End: March 03, 2024 [facility] [employer] [facility] Analyst Relationship Specialty Start Date End Date Cisco Bonilla DO [address], [place] [address] PCP - General Family Medicine 12/19/19 [employer] Analyst Relationship Specialty Start Date End Date Cisco Bonilla DO [address], [place] [address] PCP - General Family Medicine 12/19/19 [employer] Analyst Relationship Specialty Start Date End Date Cisco Bonilla DO [address], [facility] [place] [address] PCP - General Family Medicine 12/19/19 [employer] Analyst Relationship Specialty Start Date End Date Cisco Bonilla DO [address], [place] [address] PCP - General Family Medicine 12/19/19 [facility] [employer] [facility] Analyst Relationship Specialty Start Date End Date Cisco Bonilla DO [address], [place] [address] PCP - General Family Medicine 12/19/19 [employer] Analyst Relationship Specialty Start Date End Date Cisco Bonilla DO [address], [place] [address] PCP - General Family Medicine 12/19/19 [facility] [employer] [facility] Analyst Relationship Specialty Start Date End Date Cisco Bonilla DO [address], [place] [address] PCP - General Family Medicine 12/19/19 [employer] Analyst Relationship Specialty Start Date End Date Cisco Bonilla DO [address], [place] [address] PCP - General Family Medicine 12/19/19 [employer] Analyst Relationship Specialty Start Date End Date Cisco Bonilla DO [address] [place] [address] PCP - General Family Medicine 12/19/19 [employer] Analyst Relationship Specialty Start Date End Date Cisco Bonilla DO [address] [place] [address] PCP - General Family Medicine 12/19/19 [employer] Analyst Relationship Specialty Start Date End Date Carlos AlbertolindenCisco cao DO [address] [place] [address] PCP - General Family Medicine 12/19/19 [facility] [employer] Analyst Relationship Specialty Start Date End Date Cisco Bonilla DO [address] [place] [address] PCP - General Family Medicine 12/19/19 [facility] [employer] Analyst Relationship Specialty Start Date End Date Carlos AlbertolindenCisco cao DO [address] [place] [address] PCP - General Family Medicine 12/19/19 [facility] [employer] [facility] Analyst Relationship Specialty Start Date End Date Carlos AlbertolindenCisco cao DO [address] [place] [address] PCP - General Family Medicine 12/19/19 [employer] Analyst Relationship Specialty Start Date End Date Cisco Bonilla DO [address] [place] [address] PCP - General Family Medicine 12/19/19 [facility] [employer] Analyst Relationship Specialty Start Date End Date Cisco Bonilla DO [address] [place] [address] PCP - General Family Medicine 12/19/19 [facility] [employer] [facility] Analyst Relationship Specialty Start Date End Date Carlos AlbertolindenCisco cao DO [address] [place] [address] PCP - General Family Medicine 12/19/19 [employer] Analyst Relationship Specialty Start Date End Date Cisco Bonilla DO [address], [place] [address] PCP - General Family Medicine 12/19/19 [employer] Analyst Relationship Specialty Start Date End Date Tyson Tolliver MD PCP - General Family Medicine 11/11/15 Vivian Brady MD [address] [place] [id number] Gastroenterology 01/16/25 [employer] Analyst Relationship Specialty Start Date End Date Cisco Bonilla DO [address], [place] [address] PCP - General Family Medicine 12/19/19 [employer] Analyst Relationship Specialty Start Date End Date Tyson Tolliver MD PCP - General Family Medicine 11/11/15 Vivian Brady MD [address] [address] Gastroenterology 01/16/25 Team Status: Inactive Member Role Status Dates Cisco Bonilla DO Primary Care Provider Active Start: February 18, 2025 End: February 18, 2025 Ehsan Avina DO Attending Provider Active S tart: February 18, 2025 End: February 18, 2025 [employer] Analyst Relationship Specialty Start Date End Date Tyson Tolliver MD PCP - General Family Medicine 11/11/15 Vivian Brady MD [address] [address] Gastroenterology 01/16/25 [employer] Analyst Relationship Specialty Start Date End Date Tyson Tolliver MD PCP - General Family Medicine 11/11/15 Vivian Brady MD [address] [address] Gastroenterology 01/16/25 [employer] Analyst Relationship Specialty Start Date End Date Tyson Tolliver MD PCP - General Family Medicine 11/11/15 Vivian Brady MD [address] [address] Gastroenterology 01/16/25 [employer] Analyst Relationship Specialty Start Date End Date Tyson Tolliver MD PCP - General Family Medicine 11/11/15 Vivian Brady MD [address] [address] Gastroenterology 01/16/25 Team Status: Active Member Role [...] March 19, 2025 End: March 19, 2025 [employer] Analyst Relationship Specialty Start Date End Date Cisco Bonilla DO [address] [facility], [place] [address] PCP - General Family Medicine 12/19/19 [employer] Analyst Relationship Specialty Start Date End Date Tyson Tolliver MD PCP - General Family Medicine 11/11/15 Vivian Brady MD [address] [address] Gastroenterology 01/16/25 [employer] Analyst Relationship Specialty Start Date End Date Tyson Tolliver MD PCP - General Family Medicine 11/11/15 Vivian Brady MD [address] [facility] [address] [address] Gastroenterology 01/16/25 [employer] Analyst Relationship Specialty Start Date End Date Tyson Tolliver MD PCP - General Family Medicine 11/11/15 Vivian Brady MD [address] [place] [id number] Gastroenterology 01/16/25 Team Status: Inactive Member Role [...] drug abuse patient.[facility] the event this information is protected by the Federal Confidentiality of Alcohol and Drug Abuse Patient Records regulations: The Federal rules restrict any use of the information to criminally investigate or prosecute any alcohol or drug abuse patient.[facility]In the event this information is protected by the Federal Confidentiality of Alcohol and Drug Abuse Patient Records regulations: The Federal rules restrict any use of the information to criminally investigate or prosecute any alcohol or drug abuse patient.[facility]ullIn the event this information is protected by the Federal Confidentiality of Alcohol and Drug Abuse Patient Records regulations: The Federal rules restrict any use of the information to criminally investigate or prosecute any alcohol or drug abuse patient.[facility]In the event this information is protected by the Federal Confidentiality of Alcohol and Drug Abuse Patient Records regulations: The Federal rules restrict any use of the information to criminally investigate or prosecute any alcohol or drug abuse patient.[facility]In the event this information is protected by the Federal Confidentiality of Alcohol and Drug Abuse Patient Records regulations: The Federal rules restrict any use of the information to criminally investigate or prosecute any alcohol or drug abuse patient.[facility]In the event this information is protected by the Federal Confidentiality of Alcohol and Drug Abuse Patient Records regulations: The Federal rules restrict any use of the information to criminally investigate or prosecute any alcohol or drug abuse patient.[facility] the event this information is protected by the Federal Confidentiality of Alcohol and Drug Abuse Patient Records regulations: The Federal rules restrict any use of the information to criminally investigate or prosecute any alcohol or drug abuse patient.[facility] the event this information is protected by the Federal Confidentiality of Alcohol and Drug Abuse Patient Records regulations: The Federal rules restrict any use of the information to criminally investigate or prosecute any alcohol or drug abuse patient.[facility] FOR RECORDS PERTAINING TO PATIENTS WHO ARE [...] BE BASED ON THE PRIMARY CLINICAL RECORDS. [employer] [facility]. provides no warranty or guarantee of the accuracy or completeness of information in this document.
[2025-05-09 05:30] VITALS: BP 187/107; PULSE 96; TEMP 36.6; O2SAT 94; BMI 25.8
--- NOTE | 2025-05-09 05:33 | PC.NURSE ---
this patient requesting to have his starr catheter to be removed. this patient voices no other complaints and shows no signs of distress
--- NOTE | 2025-05-09 05:58 | ED.GENADUL1 ---
HPI HPI - General Adult General Chief complaint: Urogenital-Male Stated complaint: MURRAY ISSUES Time Seen by Provider: 05/09/25 05:38 Source: patient Mode of arrival: walk-in Limitations: no limitations History of Present Illness HPI narrative: Patient is a 54-year-old male presenting to the emergency department requesting his Murray catheter to be removed. Patient states he was here in the emergency department a few times over the last couple days for urinary retention. Initially he was retaining urine, was straight cathed, and sent home on Flomax. He then returned a second time yesterday and was still having urinary retention, therefore he was discharged with a Murray catheter. Since then, he states he has had significant discomfort with indwelling Murray catheter. He states he wants the catheter removed, even though he knows the risk of recurrent urinary retention. He states last time this happened was a few years ago when he was taken off of daily Xanax. Otherwise, he is currently on antibiotics for diverticulitis. He has no other acute symptoms. He is denying any significant abdominal pain, fevers, chills, chest pain or shortness of breath. Related Data Previous Rx's ?Medication ?Instructions ?Recorded ondansetron 4 mg disintegrating 4 mg PO Q6H PRN nausea and 05/06/24 tablet vomiting #12 tabs dicyclomine 20 mg tablet 20 mg PO QID PRN abdominal pain 09/05/24 #12 tabs hydrocodone 5 mg-acetaminophen 325 1 tab PO Q6H PRN pain 3 days #12 02/14/25 mg tablet tabs ciprofloxacin HCl 500 mg tablet 500 mg PO Q12H #20 tabs 05/07/25 (Cipro) hydrocodone 5 mg-acetaminophen 325 1 tab PO Q6H PRN pain 5 days #20 05/07/25 mg tablet tabs metronidazole 500 mg tablet 500 mg PO TID #30 tabs 05/07/25 ondansetron 4 mg disintegrating 4 mg PO Q6H PRN nausea and 05/07/25 tablet vomiting #20 tabs Allergies Allergy/AdvReac Type Severity Reaction Status Date / Time No Known Drug Allergies Allergy Verified 05/09/25 05:30 Opioid HPI Opioid Management Most Recent Opioid Data: Last Pain Scale 8 05/08/25, 05:33 Last MAR Pain Assessment 05/08/25, 01:29 Ur Phencyclidine Scrn, (NEGATIVE) Negative 05/06/24, 15:20 Review of Systems ROS Status of ROS 10 or more systems reviewed and unremarkable except as noted in history and below [facility] Social History Little interest or pleasure in doing things: not at all Feeling down, depressed, or hopeless: not at all Exam Narrative Exam Narrative: CONSTITUTIONAL: No acute distress, answering questions and following commands appropriately SKIN: Was warm and dry. EYES: Sclerae white. EARS, NOSE, THROAT: Moist oral mucosa. RESPIRATORY: Nonlabored respirations. CARDIOVASCULAR: Normal rate and regular rhythm. There is no S3, S4, murmur, rub. GASTROINTESTINAL: Abdomen is nondistended. Indwelling Murray catheter in place draining yellow urine. MUSCULOSKELETAL: No peripheral edema. NEUROLOGIC: Patient is awake and alert. Facies were symmetrical. Constitutional Vital Signs, click to edit/add: Last Vital Signs Temp 97.8 F 05/09/25 05:30 Pulse 96 H 05/09/25 05:30 Resp 19 05/09/25 05:30 BP 187/107 H 05/09/25 05:30 Pulse Ox 94 L 05/09/25 05:30 O2 Del Method Room Air 05/09/25 05:30 Course Vital Signs Vital signs: Vital Signs Temperature 97.8 F 05/09/25 05:30 Pulse Rate 96 H 05/09/25 05:30 Respiratory Rate 19 05/09/25 05:30 Blood Pressure 187/107 H 05/09/25 05:30 Pulse Oximetry 94 L 05/09/25 05:30 Oxygen Delivery Method Room Air 05/09/25 05:30 Temperature 97.8 F 05/09/25 05:30 Pulse Rate 96 H 05/09/25 05:30 Respiratory Rate 19 05/09/25 05:30 Blood Pressure 187/107 H 05/09/25 05:30 Pulse Oximetry 94 L 05/09/25 05:30 Oxygen Delivery Method Room Air 05/09/25 05:30 Medical Decision Making MDM Narrative Medical decision making narrative: Patient is a 54-year-old male presented to the emergency department requesting his indwelling Murray catheter be removed. On review of external documentation, patient had a indwelling Murray catheter placed yesterday for acute urinary retention. He also had a recent CT abdomen/pelvis 2 days ago that demonstrated uncomplicated diverticulosis without any renal/bladder obstruction/pathology. Vital signs on arrival today are significant for hypertension, otherwise within normal limits. He is afebrile and hemodynamically stable. He has an unremarkable physical examination. The indwelling Murray catheter is draining yellow urine. I did explain to the patient that if we remove the Murray catheter today, there is a chance that he could yet again have urinary retention and would have to return to the emergency department for catheterization. He does understand the risks and benefits of removing the catheter, and decided to proceed with removal. He has no new symptomatology, I do not believe any further workup is necessary here in the ED. I do believe the patient is stable for discharge at this time. They were instructed to follow up with urology for further care. He is currently taking Flomax, which I recommended he continue taking. Return precautions were given including any new or worsening symptoms, including urinary retention/lower abdominal pain. Patient understands and agrees to the plan. FINAL IMPRESSION: #Acute encounter for Murray catheter removal #History of recent urinary retention DISPOSITION: Discharged home CONDITION: Good Medical Records Medical records reviewed: Yes I reviewed the patient's medical records Discharge Plan Discharge Chief Complaint: Urogenital-Male Clinical Impression: Encounter for Murray catheter removal Patient Disposition: Home, Self-Care Time of Disposition Decision: 05:49 Condition: Good Mode of Transportation: Private Vehicle Prescriptions / Home Meds: No Action dicyclomine 20 mg tablet 20 mg PO QID PRN (Reason: abdominal pain) Qty: 12 0RF hydrocodone-acetaminophen 5-325 mg tablet 1 tab PO Q6H PRN (Reason: pain) 5 Days Qty: 20 0RF metronidazole 500 mg tablet 500 mg PO TID Qty: 30 0RF ciprofloxacin HCl [Cipro] 500 mg tablet 500 mg PO Q12H Qty: 20 0RF ondansetron 4 mg tablet,disintegrating 4 mg PO Q6H PRN (Reason: nausea and vomiting) Qty: 20 0RF ondansetron 4 mg tablet,disintegrating 4 mg PO Q6H PRN (Reason: nausea and vomiting) Qty: 12 0RF hydrocodone-acetaminophen 5-325 mg tablet 1 tab PO Q6H PRN (Reason: pain) 3 Days Qty: 12 0RF Rx Instructions: M79.671 Print Language: Hebrew Instructions: Murray Catheter Removal (DC) Referrals: MELY BONILLA [Primary Care Provider, Family Practice] - 1 week
--- NOTE | 2025-05-09 06:00 | PC.NURSE ---
i gave this patient verbal and written discharge orders and this patient voices yes to understanding these. at time of discharge this patient voices no concerns or needs and shows no signs of distress
== END 2025-05-09 06:00 | disposition home or self-care (01) ==
PROVIDERS: Emergency Provider Student in an Organized Health Care Education/Training Program; PCP Family Medicine
DX: Z46.6 Encounter for fitting and adjustment of urinary device (principal)
CPT/HCPCS: 99281

== ENCOUNTER 2025-05-09 09:52 | Emergency (ER) | payer OTHER, SELFPAY ==
--- OUTSIDE RECORDS SUMMARY | 2025-05-09 10:05 | XMS_ITS | CCD ---
Author Organization [facility] Care Team Providers Care Pleating Supervisor Name Role Phone OSINOWO, OSIYEMI Unavailable Unavailable OSINOWO, OSIYEMI Unavailable Unavailable NADERER, TYSON Unavailable Unavailable NADERER, TYSON Unavailable Unavailable Mary King Unavailable Tawnya Andre Unavailable CHAD, DR CISCO Thomason Primary Care Unavailable MARKER, DR JUARES Admitting Unavailable MARKER, DR JUARES Attending Unavailable MARKER, DR JUARES Consulting Unavailable ALANA MORROW Consulting Unavailable DO Cisco Bonilla Primary Care Provider [phone] MD Jennyfer Wnikler Emergency Provider CISCO BONILLA Primary Care Physician [phone] JAME De Emergency Provider [phone] JENNYFER AUGUSTIN Admitting Unavailable JENNYFER AUGUSTIN Attending Unavailable CISCO BONILLA Primary Care Unavailable JENNYFER AUGUSTIN Attending Unavailable JENNYFER AUGUSTIN Referring Unavailable CISCO BONILLA Primary Care Unavailable CHAD, CISCO Thomason Primary Care Unavailable JEY NORRIS Attending Unavailable Carlos Albertolong Cisco MCLAUGHLIN Primary Care Provider [phone] Cisco Bonilla DO Primary Care Provider [phone] CISCO BONILLA Attending Unavailable CISCO BONILLA Referring [...] Propensity to adverse reactions (disorder) [facility] Medications Current Medications Medication Drug [...] constipation, # 10 supp, Refills(s) 0, Pharmacy: [facility], 173, cm, 01/24/25 10:35:00 EDT, Height/Length [...] Daily, # 30 tab(s), Refills(s) 4, Pharmacy: [facility], 173, cm, 01/24/25 10:35:00 EDT, Height/Length Dosing, 86.3, kg, 01/24/25 10:35:00 EDT, Weight Dosing Start Date: 01/24/25 Status: Ordered Quantity: 30.0 Unit: tab(s) Repeat number: 5 Indications: Other specified disorders of muscle; Outlet dysfunction constipation; Constipation, unspecified; Psychological and behavioral factors associated with disorders or diseases classified elsewhere; Other psychoactive substance dependence, uncomplicated; Abdominal distension (gaseous); polyethylene glycol 3350 84138 mg powder for oral solution (20 sources) [...] bedtime) for constipation, 100 tab(s), Refill(s) 0, [facility], 173, cm, 01/24/25 10:35:00 EDT, Height/Length Dosing, 86.3, kg, 01/24/25 10:35:00 EDT, Weight Dosing Start Date: 04/19/25 Status: Ordered Quantity: 100.0 Unit: tab(s) Repeat number: 1 Start: 01-09-2025 Senna 8.6 mg o ral tablet 17.2 mg, 2 tab(s), Oral, Once a day (at bedtime) for constipation, 100 tab(s), Refill(s) 3, [facility], 173, cm, 01/09/25 12:52:00 EDT, [...] 2025 March 19, 2025 11:33am peg 3350-sod sulf,nqmi-zwz-wwj 178.7-7.3-0.5 gram recon soln (1 source) Start: 02-13-2024 End: 02-14-2024 peg 3350-sod sulf,ckks-qll-zom 178.7-7.3-0.5 gram recon soln Indications: Change in [...] RT 2Von 03-20-2025 XR foot RT 2V [facility] [place] [address] XRay Report Signed Patient: Chai Arnold MR#: [id number] 2 : 1970 Acct:[id number] Age/Sex: 54 / M ADM Date: 03/19/25 Loc: ID Room: Type: [facility] Attending Dr: Ehsan Avina DO [...] Lisa M.D. 03/20/2025 8:49 AM Dictation Location: [place] [address] Transcribed By: [facility] 03/20/25 0849 Dictated By: Dante Lisa II, MD 03/20/25 0849 Signed By: 03/20/25 0849 Normal [facility] Amphetamine Screen Ql (U)Ord ered By: Nirmal Bruno on 03-19-2025 Amphetamines Ql (U) Negative Negative [facility] Barbiturates [Presence] in U rine by Screen methodOrdered By: Nirmal Bruno on 03-19-2025 Barbiturates Screen Ql (U) Negative Negative [facility] Benzodiazepines Screen Ql (U )Ordered By: Nirmal Bruno on 03-19-2025 Benzodiazepines Ql (U) Positive High Negative [facility] Benzoylecgonine [Presence] i n Urine by Screen methodOrdered By: Nirmal Bruno on 03-19-2025 Benzoylecgonine Screen Ql (U) Negative Negative [facility] Cannabinoids [Presence] in U rine by Screen methodOrdered By: Nirmal Bruno on 03-19-2025 Cannabinoids Screen Ql (U) Negative Negative [facility] Comment on above: These are unconfirme d results and should not be used for legal purposes. Drug Cut-Off Concentration: AMPH 1000 ng/mL MAXIMILIAN 200 ng/mL NORA 200 ng/mL COCM 300 ng/mL OP 300 ng/mL PCP 25 ng/mL THC 20 ng/mL Drug Screen,Urineon 03-19-20 25 Amphetamine Screen,Urine Negative Normal Negative [facility] Comment on above: Performed By: #### U RDS #### [address] Barbiturate Screen,Urine Negative Normal Negative [facility] Comment on above: Performed By: #### U RDS #### [place] [address] [place] Benzodiazepines Screen,Urine Positive Normal Negative [facility] Comment on above: Performed By: #### U RDS #### [address] Cannabinoid Screen,Urine Negative Normal Negative [facility] Comment on above: Result Comment: Thes e are unconfirmed results and should not be used for legal purposes. Drug Cut-Off Concentration: AMPH 1000 ng/mL MAXIMILIAN 200 ng/mL NORA 200 ng/mL COCM 300 ng/mL OP 300 ng/mL PCP 25 ng/mL THC 20 ng/mL PERFORMED BY: [place] [address] PATHOLOGIST SOLE STITCHER HAND BROWN OLIVIER M.D. Performed By: #### U RDS #### [place] [address] [place] Cocaine Screen,Urine Negative Normal Negative [facility] Comment on above: Performed By: #### U RDS #### [facility] [address] Opiate Screen,Urine Positive Normal Negative [facility] Comment on above: Performed By: #### U RDS #### [facility] [address] Phencyclidine Screen,Urine Negative Normal Negative [facility] Comment on above: Performed By: #### U RDS #### [address] Opiates [Presence] in Urine by Screen methodOrdered By: Nirmal Bruno on 03-19-2025 Opiates Screen Ql (U) Positive High Negative [facility] Phencyclidine Screen Ql (U)O rdered By: Nirmal Bruno on 03-19-2025 Phencyclidine Ql (U) Negative Negative [facility] Alanine aminotransferase [En zymatic activity/volume] in Serum or PlasmaOrdered By: Ehsan Avina on 03-18-2025 ALT [Catalytic activity/Vol] 15 U/L [facility] Comment on above: Performed By: #### C MP wRFX A1C, CBC #### [address] Albumin [Mass/volume] in Ser um or Plasma by Bromocresol green (BCG) dye binding methoOrdered By: Ehsan Avina on 03-18-2025 Albumin BCG dye [Mass/Vol] 4.2 g/dL 3.5-5.7 [facility] Alkaline phosphatase [Enzyma tic activity/volume] in Serum or PlasmaOrdered By: Ehsan Avina on 03-18-2025 ALP [Catalytic activity/Vol] 116 U/L High 34-104 [facility] Comment on above: Result Comment: PERF ORMED BY: [place] [address] PATHOLOGIST SOLE STITCHER HAND BROWN OLIVIER M.D. Performed By: #### C MP wRFX A1C, CBC #### [address] Aspartate aminotransferase [ Enzymatic activity/volume] in Serum or PlasmaOrdered By: Ehsan Avina on 03-18-2025 AST [Catalytic activity/Vol] 20 U/L 13-39 [facility] Comment on above: Performed By: #### C MP wRFX A1C, CBC #### [facility] [address] Basophils [#/volume] in Bloo d by Automated countOrdered By: Ehsan Avina on 03-18-2025 Basophils (Bld) [#/Vol] 0.1 10*3/uL 0.0-0.2 [facility] Comment on above: Result Comment: PERF ORMED BY: [place] [address] PATHOLOGIST SOLE STITCHER HAND BROWN OLIVIER M.D. Performed By: #### C MP wRFX A1C, CBC #### [address] Basophils/100 leukocytes in Blood by Automated countOrdered By: Ehsan Avina on 03-18-2025 Basophils/100 WBC (Bld) 0.9 % . [facility] Comment on above: Performed By: #### C MP wRFX A1C, CBC #### [address] Bilirubin.total [Mass/volume ] in Serum or PlasmaOrdered By: Ehsan Avina on 03-18-2025 Bilirubin [Mass/Vol] 1.0 mg/dL 0.3-1.0 [facility] Comment on above: Performed By: #### C MP wRFX A1C, CBC #### [facility] [address] CMP with reflex to A1Con Albumin [Mass/Vol] 4.2 g/dL Normal 3.5-5.7 [facility] Comment on above: Performed By: #### C MP wRFX A1C, CBC #### [place] [address] [place] GFR/1.73 sq M.predicted MDRD (S/P/Bld) [Vol rate/Area] mL/min/{1.73_m2} Normal [facility] Comment on above: Performed By: #### C MP wRFX A1C, CBC #### [facility] [address] Calcium [Mass/volume] in Ser um or PlasmaOrdered By: Ehsan Avina on 03-18-2025 Calcium [Mass/Vol] 9.2 mg/dL 8.6-10.3 [facility] Comment on above: Performed By: #### C MP wRFX A1C, CBC #### [facility] [address] Carbon dioxide, total [Moles /volume] in Serum or PlasmaOrdered By: Ehsan Avina on 03-18-2025 CO2 [Moles/Vol] 29.7 mmol/L 21.0-31.0 [facility] Comment on above: Performed By: #### C MP wRFX A1C, CBC #### [facility] [address] Chloride [Moles/volume] in S dereje or PlasmaOrdered By: Ehsan Avina on 03-18-2025 Chloride [Moles/Vol] 102 mmol/L 98-107 [facility] Comment on above: Performed By: #### C MP wRFX A1C, CBC #### [address] Complete Blood Count Auto Di ffon 03-18-2025 Mean Corpuscular HGB Conc 34.4 g/dL Normal 32.5-35.6 [facility] Comment on above: Performed By: #### C MP wRFX A1C, CBC #### [facility] [address] [place] [address] [place] NRBC% 0.1 /100{WBC} Normal 0-0.5 [facility] Comment on above: Performed By: #### C MP wRFX A1C, CBC #### [facility] [address] White Blood Count 6.4 [CFU]/mL Normal 4.1-10.5 [facility] Comment on above: Performed By: #### C MP wRFX A1C, CBC #### [facility] [address] Creatinine [Mass/volume] in Serum or PlasmaOrdered By: Ehsan Avina on 03-18-2025 Creatinine [Mass/Vol] 1.03 mg/dL 0.70-1.30 [facility] Comment on above: Performed By: #### C MP wRFX A1C, CBC #### [facility] [address] ECG 12 lead ECGon 03-18-2025 ECG 12 lead ECG [facility] [place] [address] [place] [address] Electrocardiograph Report Signed Patient: Chai Arnold MR#: [id number] 2 : 1970 Acct:[id number] Age/Sex: 54 / M ADM Date: 03/18/25 Loc: Room: Type: [facility] Attending Dr: Ehsan Avina DO Ordering [...] previous ECGs available Confirmed by Eduardo Torrez ([id number]) on 03/18/2025 1:40:16 PM Referred By: Electronically Signed By: Eduardo Torrez Transcribed By: MUS Signed By Eduardo Torrez MD 03/18/25 1340 Normal [facility] Eosinophils [#/volume] in Bl ood by Automated countOrdered By: Ehsan Avina on 03-18-2025 Eosinophils (Bld) [#/Vol] 0.9 10*3/uL High 0.0-0.45 [facility] Comment on above: Performed By: #### C MP wRFX A1C, CBC #### [facility] [address] [place] [address] [place] Eosinophils/100 leukocytes i n Blood by Automated countOrdered By: Ehsan Avina on 03-18-2025 Eosinophils/100 WBC (Bld) 14.4 % . [facility] Comment on above: Performed By: #### C MP wRFX A1C, CBC #### [facility] [address] [place] [address] Erythrocyte distribution wid th [Ratio] by Automated countOrdered By: Ehsan Avina on 03-18-2025 Erythrocyte distribution width (RBC) [Ratio] 12.9 % 12.0-14.8 [facility] Comment on above: Performed By: #### C MP wRFX A1C, CBC #### [address] Erythrocytes [#/volume] in B lood by Automated countOrdered By: Ehsan Avina on 03-18-2025 RBC (Bld) [#/Vol] 4.85 10*6/uL 3.90-5.60 [facility] Comment on above: Performed By: #### C MP wRFX A1C, CBC #### [facility] [address] [place] [address] [place] Glucose [Mass/volume] in Ser um or PlasmaOrdered By: Ehsan Avina on 03-18-2025 Glucose [Mass/Vol] 88 mg/dL 70-100 [facility] Comment on above: Performed By: #### C MP wRFX A1C, CBC #### [facility] [address] [place] [address] [place] Hematocrit [Volume Fraction] of Blood by Automated countOrdered By: Ehsan Avina on 03-18-2025 Hematocrit (Bld) [Volume fraction] 46.4 % 38.8-50.0 [facility] Comment on above: Performed By: #### C MP wRFX A1C, CBC #### [facility] [address] [place] [address] [place] Hemoglobin [Mass/volume] in BloodOrdered By: Ehsan Avina on 03-18-2025 Hemoglobin (Bld) [Mass/Vol] 16.0 g/dL 13.0-17.0 [facility] Comment on above: Performed By: #### C MP wRFX A1C, CBC #### [facility] [address] Leukocytes [#/volume] correc ernst for nucleated erythrocytes in Blood by Automated counOrdered By: Ehsan Avina on 03-18-2025 WBC corrected for nucl RBC Auto (Bld) [#/Vol] 6.4 10*3/uL 4.1-10.5 [facility] Leukocytes [#/volume] in Blo od by Automated countOrdered By: Ehsan Avina on 03-18-2025 WBC (Bld) [#/Vol] 6.4 10*3/uL 4.1-10.5 [facility] Comment on above: Performed By: #### C MP wRFX A1C, CBC #### [facility] [address] [place] [address] [place] Lymphocytes [#/volume] in Bl ood by Automated countOrdered By: Ehsan Avina on 03-18-2025 Lymphocytes (Bld) [#/Vol] 1.2 10*3/uL 1.00-4.8 [facility] Comment on above: Performed By: #### C MP wRFX A1C, CBC #### [address] Lymphocytes/100 leukocytes i n Blood by Automated countOrdered By: Ehsan Avina on 03-18-2025 Lymphocytes/100 WBC (Bld) 18.9 % . [facility] Comment on above: Performed By: #### C MP wRFX A1C, CBC #### [facility] [address] [place] [address] [place] MCH [Entitic mass] by Automa ernst countOrdered By: Ehsan Avina on 03-18-2025 MCH (RBC) [Entitic mass] 32.9 pg 27.5-35.2 [facility] Comment on above: Performed By: #### C MP wRFX A1C, CBC #### [facility] [address] [place] [address] [place] MCHC Auto (RBC) [Mass/Vol]Or dered By: Ehsan Avina on 03-18-2025 MCHC (RBC) [Mass/Vol] 34.4 g/dL 32.5-35.6 [facility] MCV [Entitic volume] by Auto mated countOrdered By: Ehsan Avina on 03-18-2025 MCV (RBC) [Entitic vol] 95.7 fL 83.5-101 F [facility] Comment on above: Performed By: #### C MP wRFX A1C, CBC #### [facility] [address] [place] [address] [place] Monocytes [#/volume] in Bloo d by Automated countOrdered By: Ehsan Avina on 03-18-2025 Monocytes (Bld) [#/Vol] 0.6 10*3/uL 0.0-0.8 [facility] Comment on above: Performed By: #### C MP wRFX A1C, CBC #### [facility] [address] [place] [address] [place] Monocytes/100 leukocytes in Blood by Automated countOrdered By: Ehsan Avina on 03-18-2025 Monocytes/100 WBC (Bld) 9.7 % . F [facility] Comment on above: Performed By: #### C MP wRFX A1C, CBC #### [address] Neutrophils [#/volume] in Bl ood by Automated countOrdered By: Ehsan Avina on 03-18-2025 Neutrophils (Bld) [#/Vol] 3.6 10*3/uL 1.8-7.7 [facility] Comment on above: Performed By: #### C MP wRFX A1C, CBC #### [facility] [address] [place] [address] [place] Neutrophils/100 leukocytes i n Blood by Automated countOrdered By: Ehsan Avina on 03-18-2025 Neutrophils/100 WBC (Bld) 56.1 % . [facility] Comment on above: Performed By: #### C MP wRFX A1C, CBC #### [facility] [address] [place] [address] No Panel InformationOrdered By: Ehsan Avina on 03-18-2025 Estimated GFR (CKD-EPI) > 60.0 mL/Min [facility] Creatinine Clearance (Chem N/A [facility] Nucleated erythrocytes [Pres ence] in Blood by Automated countOrdered By: Ehsan Avina on 03-18-2025 Nucleated RBC Auto Ql (Bld) 0.1 /100{WBC} 0-0.5 [facility] Platelet mean volume [Entiti c volume] in Blood by Automated countOrdered By: Ehsan Avina on 03-18-2025 Platelet mean volume (Bld) [Entitic vol] 8.1 fL 6.6-10.1 [facility] Comment on above: Performed By: #### C MP wRFX A1C, CBC #### [facility] [address] [place] [address] [place] Platelets [#/volume] in Bloo d by Automated countOrdered By: Ehsan Avina on 03-18-2025 Platelets (Bld) [#/Vol] 213 10*3/uL 150-450 [facility] Comment on above: Performed By: #### C MP wRFX A1C, CBC #### [facility] [address] [place] [address] [place] Potassium [Moles/volume] in Serum or PlasmaOrdered By: Ehsan Avina on 03-18-2025 Potassium [Moles/Vol] 4.1 mmol/L 3.5-5.1 [facility] Comment on above: Performed By: #### C MP wRFX A1C, CBC #### [facility] [address] [place] [address] [place] Protein [Mass/volume] in Ser um or PlasmaOrdered By: Ehsan Avina on 03-18-2025 Protein [Mass/Vol] 6.9 g/dL 6.4-8.9 [facility] Comment on above: Performed By: #### C MP wRFX A1C, CBC #### [facility] [address] [place] [address] Serum globulin measurement b y calculation (mass/volume)Ordered By: Ehsan Avina on 03-18-2025 Globulin (S) [Mass/Vol] 2.7 g/dL [facility] Comment on above: Performed By: #### C MP wRFX A1C, CBC #### [facility] [address] [place] [address] Serum or plasma albumin/glob ulin mass ratioOrdered By: Ehsan Avina on 03-18-2025 Albumin/Globulin [Mass ratio] 1.6 {ratio} [facility] Comment on above: Performed By: #### C MP wRFX A1C, CBC #### [facility] [address] [place] [address] Serum or plasma anion gap de terminationOrdered By: Ehsan Avina on 03-18-2025 Anion gap [Moles/Vol] 9.4 mmol/L 6.0-15.0 [facility] Comment on above: Performed By: #### C MP wRFX A1C, CBC #### [facility] [address] [place] [address] Sodium [Moles/volume] in Ser um or PlasmaOrdered By: Ehsan Avina on 03-18-2025 Sodium [Moles/Vol] 137 mmol/L 136-145 [facility] Comment on above: Performed By: #### C MP wRFX A1C, CBC #### [facility] [address] [place] [address] Urea nitrogen [Mass/volume] in Serum or PlasmaOrdered By: Ehsan Avina on 03-18-2025 Urea nitrogen [Mass/Vol] 9 mg/dL 7-25 [facility] Comment on above: Performed By: #### C MP wRFX A1C, CBC #### [facility] [address] [place] [address] X-ray reportOrdered By: Rodney Dawson on 03-13-2025 Study report [facility] [address] [place] [address] XRay Report Signed Patient: Chai Arnold MR#: [id number] : 1970 Acct:[id number] Age/Sex: 54 / M ADM Date: 5 [address]: [facility] Room: Type: REG CLI Attending Dr: Ehsan [...] 03/13/2025 10:25 PM Dictation Location: [place] [address] Transcribed By: [facility] 03/13/252224 Dictated By: Garrett Dawson DO 03/13/252220 Signed By: 03/13/252224 [facility] XR foot RT min 3V*on 025 XR foot RT min 3V* [facility] [address] [place] [address] XRay Report Signed Patient: Chai Arnold MR#: [id number] 2 : 1970 Acct:[id number] Age/Sex: 54 / M ADM Date: 03/13/25 Loc: [facility] Room: Type: REG CLI Attending Dr: Ehsan [...] 10:25 PM Dictation Location: RADIO-PC-20 Transcribed By: [facility] 03/13/252224 Dictated By: Garrett Dawson DO 03/13/252220 Signed By: 03/13/252224 Normal [facility] Doni 03-07-2025 CNPN Telephone ([facility]) ---- CHAI ARNOLD ([id number]) 1970 M Date Time Provider Department 03/07/25 LYDIA DRAKE During your visit today, we recorded the following information about you: Sterling Gonzalez 03/07/2025 1:33 PM Signed Chai Arnold - [phone] Patient contacted the office regarding the baclofen [...] Encounter Status:Closed by STERLING GONZALEZ on 03/07/25 [facility] ANORECTAL MANOMET [facility] 02-28-2025 PATIENT NAME: Chai Arnold PATIENT IDENTITY VERIFICATION COMPLETED USING TWO (2) IDENTIFIERS: Name and Date of confirmed by patient verbally. Referred by: Violette Maurer APRN.CNP Reason for testing: constipation Ileoanal pouch: No SENSITIVE EXAMINATION CONSENT: The sensitive examination was discussed with the Patient or Patient's Authorized Cable Respooler. As applicable, any other physician, advance practice provider, medical student, or other health professional student that will be observing or involved in the sensitive examination for educational or training purposes was discussed with the Patient or Authorized Cable Respooler. The Patient or Authorized Cable Respooler has agreed to proceed with the sensitive examination. Electrician Station Assistant offered:Patient accepts, visit chaperoned by Antonieta [...] Guerra MD Colon & Rectal Surgery [facility] ANORECTAL MANOMET RYOrdered By: Aparna Guerra on 02-28-2025 [facility] Work Phone: Radiology Study observation (narrative) Usha dubose [facility] Work Phone: CNNURSEon 02-28-2025 CNNURSE Nurse Visit (KENIA) ---- CHAI ARNOLD ([id number]) 1970 M Date Time Provider Department 02/28/25 12:30 PM SAHIL BERGERON During your visit today, we recorded the following information about you: Referring Provider: VIOLETTE MAURER [[id number]] Allergies As of Date: 02/28/2025 (No Known Allergies) Date Reviewed: 02/28/2025 Reviewed by: Macey Meek OCCA - Fully Assessed Reason for Visit: Manometry [780] Visit Diagnosis:Pelvic floor dysfunction [M62.89] Order(s):ADULT [place] ANORECTAL MANOMETRY [4862222] Order #: [id number] Prescriptions as of 02/28/2025 - ALPRAZolam (XANAX) [...] Encounter Status:Closed by SAHIL BERGERON on 02/28/25 [facility] CNOVon 02-28-2025 CNOV Office Visit (KENIA) ---- CHAI ARNOLD ([id number]) 1970 M Date Time Provider Department 02/28/25 [...] a compounded preparation from a pharmacy in [place], and previously used hydrocortisone. He has not [...] retroflexed positi (more content not included)... Normal [facility] HISTORY PHYSICALon HISTORY PHYSICAL HNO ID: [id number] Author: LYDIA DRAKE PA-C Service: ? Author Type: Physician Triage Nurse Type: H&P Filed: 02/28/2025 13:41 Note Text: [...] a compounded preparation from a pharmacy in [place], and previously used hydrocortisone. He has not [...] No pa (more content not included)... Normal [facility] 02-11-2025 CNPN Telephone ([facility]) ---- CHAI ARNOLD ([id number]) 1970 M Date Time Provider Department 02/11/25 ASHLEY HAYWARD [facility] During your visit today, we recorded [...] Encounter Status:Closed by CHELLE CHRISTIANSON on 02/11/25 [facility] Ambulatory Visit Summaryon 0 01-24-2025 [...] Caitlyn CHAVIS, Vivian Lance Where: [facility] [address] [place] [address]- Medications What How Much When Why Instructions New plecanatide (Trulance 3 mg oral tablet) 1 Tablets By Mouth Every day Constipation Constipation by outlet dysfunction Pelvic floor dysfunction Bloating Stress-related physiological response affecting medical condition Drug dependence Refills: 4 Pickup at [facility] Unchanged amlodipine (amLODIPine 5 mg Tab) [...] physician if questions or concerns Pharmacy Information [facility]: [address] [place] [phone] Allergies No Known Medication Allergies Problems Ongoing [...] us for your care. Normal [facility] Office/Clin ic Noteon 01-24-2025 Gastroenterology [...] him. Will refer to GI psychology at [facility] Advised to use squatty potty and [...] days could not see a provider at [facility] Review of Systems PHQ Score Initial [...] Daily, # 30 tab(s), Refills(s) 4, Pharmacy: [facility], 173, cm, 01/24/25 10:35:00 EDT, Height/Length Dosing, 86.3, kg, 01/24/25 10:35:00 EDT, Weight Dosing 2. Constipation by outlet dysfunction (K59.02: Outlet dysfunction constipation) Ordered: plecanatide, 3 mg = 1 tab(s), Oral, Daily, # 30 tab(s), Refills(s) 4, Pharmacy: [facility], 173, cm, 01/24/25 10:35:00 EDT, Height/Length Dosing, 86.3, kg, 01/24/25 10:35:00 EDT, Weight Dosing 3. Pelvic floor dysfunction (M62.89: Other specified disorders of muscle) Ordered: plecanatide, 3 mg = 1 tab(s), Oral, Daily, # 30 tab(s), Refills(s) 4, Pharmacy: [facility], 173, cm, 01/24/25 10:35:00 EDT, Height/Length Dosing, 86.3, kg, 01/24/25 10:35:00 EDT, Weight Dosing 4. Bloating (R14.0: Abdominal distension (gaseous)) Ordered: plecanatide, 3 mg = 1 tab(s), Oral, Daily, # 30 tab(s), Refills(s) 4, Pharmacy: [facility], 173, cm, 01/24/25 10:35:00 EDT, Height/Length Dosing, 86.3, kg, 01/24/25 10:35:00 EDT, Weight Dosing 5. Stress-related physiological response affecting medical condition (F54: Psychological and behavioral factors associated with disorders or diseases classified elsewhere) Ordered: (more content not included)... Normal [facility] Comment on above: Result Comment: Elec [...] Someone Will Contact You Regarding These Appointments [facility] External Ambulatory Referral, Gastroenterology, 01/09/25 13:16:00 EDT, [...] choosing us for your care. Normal [facility] Gastroenterology Office/Clin ic Noteon 01-09-2025 Gastroenterology Office/Clinic [...] him. Will refer to GI psychology at [facility] Advised to use squatty potty and [...] (more content not included)... Normal [facility] Comment on above: Result Comment: Elec tronically Signed By: Caitlyn CHAVIS, Vivian Lance\.br\Date and Time Signed: 01/09/25 13:17 EDT COMPLETE BLOOD COUNTon 12-10 Erythrocyte distribution width (RBC) [Ratio] 13.5 % Normal 11.5-15.0 [facility] Comment on above: Performed By: #### C BC, [facility], 2498-4, 60189-1, 2857-1, TSHR #### [facility] ([id number]) [address] [address] Hematocrit (Bld) [Volume fraction] 48.2 % Normal 39-49 [facility] Comment on above: Performed By: #### C BC, CMP, 2498-4, 03444-9, 2857-1, TSHR #### [facility] ([id number]) [address] [place] [address] Hemoglobin (Bld) [Mass/Vol] 16.1 g/dL Normal 13.0-17.0 [facility] Comment on above: Performed By: #### C BC, CMP, 2498-4, 59480-3, 2857-1, TSHR #### [facility] ([id number]) [address], [facility] [address] [place] [address] MCH (RBC) [Entitic mass] 31.9 pg Normal 27-34 [facility] Comment on above: Performed By: #### C BC, CMP, 2498-4, 81702-7, 2857-1, TSHR #### [facility] ([id number]) [address], [address] [place] [address] MCHC (RBC) [Mass/Vol] 33.4 g/dL Normal 32-36 [facility] Comment on above: Performed By: #### C BC, CMP, 2498-4, 38932-9, 2857-1, TSHR #### [facility] ([id number]) [address], [facility] [address] [place] [address] MCV (RBC) [Entitic vol] 96 fL Normal 80-100 [facility] Comment on above: Performed By: #### C BC, CMP, 2498-4, 88045-3, 2857-1, TSHR #### [facility] ([id number]) [address], [address] [place] [address] Platelet mean volume (Bld) [Entitic vol] 9.6 fL Normal 7-12 [facility] Comment on above: Performed By: #### C BC, CMP, 2498-4, 82973-1, 2857-1, TSHR #### [facility] ([id number]) [address], [address] [place] [address] Platelets (Bld) [#/Vol] 184 10*3/uL Normal 150-450 [facility] Comment on above: Performed By: #### C BC, CMP, 2498-4, 42892-8, 2857-1, TSHR #### [facility] ([id number]) [address], [address] [place] [address] RBC COUNT 5.04 X10E12/L Normal 4.10-5.70 [facility] Comment on above: Performed By: #### C BC, CMP, 2498-4, 48232-8, 2857-1, TSHR #### [facility] ([id number]) [address], [address] [place] [address] WBC (Bld) [#/Vol] 5.2 10*3/uL Normal 4.0-11.[address] [facility] Comment on above: Performed By: #### C BC, CMP, 2498-4, 00279-1, 2857-1, TSHR #### [facility] ([id number]) [address], [address] [place] [address] COMPREHENSIVE METABOLIC PANE Vern 12-10-2024 Albumin [Mass/Vol] 4.5 g/dL Normal 3.2-5.[address] [facility] Comment on above: Performed By: #### C BC, CMP, 2498-4, 53820-8, 2857-1, TSHR #### [facility] ([id number]) [address], [address] [place] [address] ALP [Catalytic activity/Vol] 101 U/L Normal 39-130 [facility] Comment on above: Performed By: #### C BC, CMP, 2498-4, 40343-5, 2857-1, TSHR #### [facility] ([id number]) [address], [address] [place] [address] ALT [Catalytic activity/Vol] 38 U/L Normal 0-40 [facility] Comment on above: Performed By: #### C BC, CMP, 2498-4, 17817-0, 2857-1, TSHR #### [facility] ([id number]) [address], [address] [place] [address] Anion gap [Moles/Vol] 11 mmol/L Normal 5-15 [facility] Comment on above: Performed By: #### C BC, CMP, 2498-4, 93977-9, 2857-1, TSHR #### [facility] ([id number]) [address], [address] [place] [address] AST [Catalytic activity/Vol] 28 U/L Normal 0-41 [facility] Comment on above: Performed By: #### C BC, CMP, 2498-4, 48406-3, 2857-1, TSHR #### [facility] ([id number]) [address] [place] [address] Bilirubin [Mass/Vol] 0.6 mg/dL Normal 0.3-1.2 [facility] Comment on above: Performed By: #### C BC, CMP, 2498-4, 36530-8, 2857-1, TSHR #### [facility] ([id number]) [address], [address] [place] [address] Calcium [Mass/Vol] 9.6 mg/dL Normal 8.5-10.[address] [facility] Comment on above: Performed By: #### C BC, CMP, 2498-4, 51876-8, 2857-1, TSHR #### [facility] ([id number]) [address] [place] [address] Chloride [Moles/Vol] 105 mmol/L Normal 98-109 [facility] Comment on above: Performed By: #### C BC, CMP, 2498-4, 96705-6, 2857-1, TSHR #### [facility] ([id number]) [address] [place] [address] CO2 [Moles/Vol] 26 mmol/L Normal 22-32 [facility] Comment on above: Performed By: #### C BC, CMP, 2498-4, 21679-6, 2857-1, TSHR #### [facility] ([id number]) [address], [address] [place] [address] Creatinine [Mass/Vol] 0.94 mg/dL Normal 0.60-1.30 [facility] Comment on above: Result Comment: METH OD TRACEABLE TO IDMS STANDARD Performed By: #### C KARLEY, CMP, 2498-4, 54473-3, 2857-1, TSHR #### [facility] ([id number]) [address], [address] [place] [address] eGFR (CKD-EPI) NON-RACE DEPENDENT >90 Normal >59 [facility] Comment on above: Result Comment: Reported eGFR is based on the CKD-EPI 2020 equation that does not use a race coefficient. Performed By: #### C KARLEY, CMP, 2498-4, 08577-2, 2857-1, TSHR #### [facility] ([id number]) [address] [place] [address] Glucose [Mass/Vol] 86 mg/dL Normal 65-[address] [facility] Comment on above: Performed By: #### Remberto CRANDALL, CMP, 2498-4, 78441-3, 2857-1, TSHR #### [facility] ([id number]) [address], [address] [place] [address] Potassium [Moles/Vol] 4.2 mmol/L Normal 3.5-5.0 [facility] Comment on above: Performed By: #### Remberto CRANDALL, CMP, 2498-4, 85107-1, 2857-1, TSHR #### [facility] ([id number]) [address], [address] [place] [address] Protein [Mass/Vol] 7.4 g/dL Normal 6.0-8.[address] [facility] Comment on above: Performed By: #### C BC, CMP, 2498-4, 41470-9, 2857-1, TSHR #### [facility] ([id number]) [address], [address] [place] [address] Sodium [Moles/Vol] 142 mmol/L Normal 134-[address] [facility] Comment on above: Performed By: #### C BC, CMP, 2498-4, 53821-9, 2857-1, TSHR #### [facility] ([id number]) [address], [facility] [address] [place] [address] Urea nitrogen [Mass/Vol] 13 mg/dL Normal 5-23 [facility] Comment on above: Performed By: #### Remberto BC, CMP, 2498-4, 71039-0, 2857-1, TSHR #### [facility] ([id number]) [address], [facility] [address] [place] [address] IRONon 12-10-2024 Iron [Mass/Vol] 184 ug/dL Normal 50-212 [facility] Comment on above: Performed By: ###Oseas Sr BC, CMP, 2498-4, 38163-6, 2857-1, TSHR #### [facility] ([id number]) [address], [address] [address] Lipid 1996 panelon Cholesterol [Mass/Vol] 183 mg/dL Normal 150-200 [facility] Comment on above: Performed By: ###Oseas Sr BC, CMP, 2498-4, 69452-9, 2857-1, TSHR #### [facility] ([id number]) [address] [address] Cholesterol in HDL [Mass/Vol] 38 mg/dL Low >39 [facility] Comment on above: Result Comment: HDL <40 mg/dL - High Risk HDL > or = 40mg/dL- Desirable HDL >60 mg/dL - Negative Risk Performed By: #### Remberto BC, CMP, 2498-4, 86040-8, 2857-1, TSHR #### [facility] ([id number]) [address] [address] Cholesterol in LDL [Mass/Vol] 121 mg/dL Normal <130 [facility] Comment on above: Result Comment: LDL <100 mg/dL - Desirable LDL >160 mg/dL - High Risk Performed By: #### C BC, CMP, 2498-4, 01916-2, 2857-1, TSHR #### [facility] ([id number]) [address] [address] Cholesterol in VLDL [Mass/Vol] 24 mg/dL Normal 0-30 [facility] Comment on above: Performed By: #### Remberto BC, CMP, 2498-4, 15600-4, 2857-1, TSHR #### [facility] ([id number]) [address] [address] CHOLESTEROL:HDL 4.8 Normal 1.0-5.0 [facility] Comment on above: Performed By: #### Remberto BC, CMP, 2498-4, 30003-0, 2857-1, TSHR #### [facility] ([id number]) [address] [address] Triglyceride [Mass/Vol] 119 mg/dL Normal 27-150 [facility] Comment on above: Performed By: #### Remberto BC, CMP, 2498-4, 45902-3, 2857-1, TSHR #### [facility] ([id number]) [address] [address] Prostate specific Ag [Mass/V ol]on 12-10-2024 PSA SCREEN 0.57 ng/mL Normal 0.00-4.00 [facility] Comment on above: Result Comment: The method used for this test is Graciela Shashi DXI chemiluminescent immunoassay. Values obtained by different assay methods cannot be used interchangeably. Performed By: #### C BC, CMP, 2498-4, 49288-1, 2857-1, TSHR #### [facility] ([id number]) [address] [address] TSH WITH REFLEXon 12-10-2024 TSH 1.34 uIU/mL Normal 0.49-4.67 [facility] Comment on above: Performed By: #### C BC, CMP, 2498-4, 12941-3, 2857-1, TSHR #### [facility] ([id number]) [address] [address] COMPLETE BLOOD COUNTon 09-11 Erythrocyte distribution width (RBC) [Ratio] 13.4 % Normal 11.5-15.0 [facility] Comment on above: Performed By: #### Remberto CRANDALL, CMP, 2857-1, TSHR #### [facility] ([id number]) [address] [address] Hematocrit (Bld) [Volume fraction] 47.4 % Normal 39-49 [facility] Comment on above: Performed By: #### Remberto BC, CMP, 2857-1, TSHR #### [facility] ([id number]) [address] [address] Hemoglobin (Bld) [Mass/Vol] 16.4 g/dL Normal 13.0-17.0 [facility] Comment on above: Performed By: #### Remberto BC, CMP, 2857-1, TSHR #### [facility] ([id number]) [address] [address] MCH (RBC) [Entitic mass] 32.4 pg Normal 27-34 [facility] Comment on above: Performed By: #### Remberto BC, CMP, 2857-1, TSHR #### [facility] ([id number]) [address] [place] [address] MCHC (RBC) [Mass/Vol] 34.6 g/dL Normal 32-36 [facility] Comment on above: Performed By: #### Remberto BC, CMP, 2857-1, TSHR #### [facility] ([id number]) [address] [address] [place] [address] MCV (RBC) [Entitic vol] 94 fL Normal 80-100 [facility] Comment on above: Performed By: #### Remberto BC, CMP, 2857-1, TSHR #### [facility] ([id number]) [address] [address] [place] [address] Platelet mean volume (Bld) [Entitic vol] 9.4 fL Normal 7-12 [facility] Comment on above: Performed By: #### Remberto CRANDALL, CMP, 2857-1, TSHR #### [facility] ([id number]) [address] [address] [place] [address] Platelets (Bld) [#/Vol] 235 10*3/uL Normal 150-450 [facility] Comment on above: Performed By: #### Remberto BC, CMP, 2857-1, TSHR #### [facility] ([id number]) [address] [address] [place] [address] RBC COUNT 5.06 X10E12/L Normal 4.10-5.70 [facility] Comment on above: Performed By: #### Remberto BC, CMP, 2857-1, TSHR #### [facility] ([id number]) [address] [address] [place] [address] WBC (Bld) [#/Vol] 7.0 10*3/uL Normal 4.0-11.[address] [facility] Comment on above: Performed By: #### Remberto BC, CMP, 2857-1, TSHR #### [facility] ([id number]) [address] [place] [address] COMPREHENSIVE METABOLIC PANE Vern 09-11-2024 Albumin [Mass/Vol] 4.5 g/dL Normal 3.2-5.[address] [facility] Comment on above: Performed By: #### C BC, CMP, 2857-1, TSHR #### [facility] ([id number]) [address] [place] [address] ALP [Catalytic activity/Vol] 133 U/L High 39-130 [facility] Comment on above: Performed By: #### C BC, CMP, 2857-1, TSHR #### [facility] ([id number]) [address] [place] [address] ALT [Catalytic activity/Vol] 20 U/L Normal 0-40 [facility] Comment on above: Performed By: #### Remberto BC, CMP, 2857-1, TSHR #### [facility] ([id number]) [address] [place] [address] Anion gap [Moles/Vol] 10 mmol/L Normal 5-15 [facility] Comment on above: Performed By: #### Remberto BC, CMP, 2857-1, TSHR #### [facility] ([id number]) [address] [place] [address] AST [Catalytic activity/Vol] 26 U/L Normal 0-41 [facility] Comment on above: Performed By: #### C BC, CMP, 2857-1, TSHR #### [facility] ([id number]) [address] [place] [address] Bilirubin [Mass/Vol] 0.8 mg/dL Normal 0.3-1.2 [facility] Comment on above: Performed By: #### C BC, CMP, 2857-1, TSHR #### [facility] ([id number]) [address] [place] [address] Calcium [Mass/Vol] 9.6 mg/dL Normal 8.5-10.[address] [facility] Comment on above: Performed By: #### Remberto CRANDALL CMP, 2857-1, TSHR #### [facility] ([id number]) [address] [place] [address] Chloride [Moles/Vol] 103 mmol/L Normal 98-109 [facility] Comment on above: Performed By: #### Remberto CRANDALL CMP, 2857-1, TSHR #### [facility] ([id number]) [address], [facility] [address] [place] [address] CO2 [Moles/Vol] 27 mmol/L Normal 22-32 [facility] Comment on above: Performed By: #### Remberto CRANDALL CMP, 2857-1, TSHR #### [facility] ([id number]) [address] [place] [address] Creatinine [Mass/Vol] 1.05 mg/dL Normal 0.60-1.30 [facility] Comment on above: Result Comment: METH OD TRACEABLE TO IDMS STANDARD Performed By: #### Remberto CRANDALL CMP, 2857-1, TSHR #### [facility] ([id number]) [address], [facility] [address] [place] [address] GFR/1.73 sq M.predicted among non-blacks MDRD (S/P/Bld) [Vol rate/Area] 83 mL/min/{1.73_m2} Normal >59 [facility] Comment on above: Result Comment: Reported eGFR is based on the CKD-EPI 2020 equation that does not use a race coefficient. Performed By: #### Remberto CRANDALL CMP, 2857-1, TSHR #### [facility] ([id number]) [address] [place] [address] Glucose [Mass/Vol] 87 mg/dL Normal 65-[address] [facility] Comment on above: Performed By: #### Remberto CRANDALL, CMP, 2857-1, TSHR #### [facility] ([id number]) [address] [address] [place] [address] Potassium [Moles/Vol] 3.9 mmol/L Normal 3.5-5.0 [facility] Comment on above: Performed By: #### Remberto CRANDALL CMP, 2857-1, TSHR #### [facility] ([id number]) [address] [address] [place] [address] Protein [Mass/Vol] 7.3 g/dL Normal 6.0-8.[address] [facility] Comment on above: Performed By: #### Remberto CRANDALL CMP, 2857-1, TSHR #### [facility] ([id number]) [address] [address] [place] [address] Sodium [Moles/Vol] 140 mmol/L Normal 134-[address] [facility] Comment on above: Performed By: #### Remberto CRANDALL CMP, 2857-1, TSHR #### [facility] ([id number]) [address] [address] [place] [address] Urea nitrogen [Mass/Vol] 6 mg/dL Normal 5-23 [facility] Comment on above: Performed By: #### Remberto CRANDALL CMP, 2857-1, TSHR #### [facility] ([id number]) [address] [address] [place] [address] Prostate specific Ag [Mass/V ol]on 09-11-2024 PSA SCREEN 0.71 ng/mL Normal 0.00-4.00 [facility] Comment on above: Result Comment: The method used for this test is Graciela [place] DXI chemiluminescent immunoassay. Values obtained by different assay methods cannot be used interchangeably. Performed By: #### Remberto CRANDALL, CMP, 2857-1, TSHR #### [facility] ([id number]) [address] [address] [place] [address] TSH WITH REFLEXon 09-11-2024 TSH 1.29 uIU/mL Normal 0.49-4.67 [facility] Comment on above: Performed By: #### C BC, CMP, 2857-1, TSHR #### [facility] ([id number]) [address] [place] [address] CBC AND AUTO DIFFon 05-15-20 ABSOLUTE BASOPHIL 0.1 X10E9/L Normal 0.0-0.[address] [facility] Comment on above: Performed By: #### C BCA, CMP, 3040-3, 33786-9 #### [facility] ([id number]) [address] [place] [address] ABSOLUTE NEUTROPHIL 5.7 X10E9/L Normal 1.5-6.6 [facility] Comment on above: Performed By: #### C BCA, CMP, 3040-3, 41894-2 #### [facility] ([id number]) [address] [place] [address] Basophils/100 WBC (Bld) 0.7 % Normal [facility] Comment on above: Performed By: #### C BCA, CMP, 3040-3, 40107-4 #### [facility] ([id number]) [address] [place] [address] Eosinophils (Bld) [#/Vol] 0.4 10*3/uL Normal 0.0-0.4 [facility] Comment on above: Performed By: #### C BCA, CMP, 3040-3, 50910-3 #### [facility] ([id number]) [address] [place] [address] Eosinophils/100 WBC (Bld) 4.9 % Normal [facility] Comment on above: Performed By: #### C BCA, CMP, 3040-3, 98622-6 #### [facility] ([id number]) [address] [place] [address] Erythrocyte distribution width (RBC) [Ratio] 12.3 % Normal 11.5-15.0 [facility] Comment on above: Performed By: #### C ALEXANDRI[place] ANTOINE, 3040-3, 32286-7 #### [facility] ([id number]) [address] [place] [address] Hematocrit (Bld) [Volume fraction] 41.8 % Normal 39-49 [facility] Comment on above: Performed By: #### C A[place] ANTOINE, 3, 35982-3 #### [facility] ([id number]) [address] [place] [address] Hemoglobin (Bld) [Mass/Vol] 15.1 g/dL Normal 13.0-17.0 [facility] Comment on above: Performed By: #### Remberto ANTOINE CMP, 3, 08170-5 #### [facility] ([id number]) [address] [place] [address] Lymphocytes (Bld) [#/Vol] 1.4 10*3/uL Normal 1.0-3.5 [facility] Comment on above: Performed By: #### Remberto ANTOINE CMP, 30403, 86885-8 #### [facility] ([id number]) [address] [place] [address] Lymphocytes/100 WBC (Bld) 17.3 % Normal [facility] Comment on above: Performed By: #### Remberto ANTOINE CMP, 304-3, 58329-7 #### [facility] ([id number]) [address] [place] [address] MCH (RBC) [Entitic mass] 32.3 pg Normal 27-34 [facility] Comment on above: Performed By: #### C BCA, CMP, 0-3, 14635-9 #### [facility] ([id number]) [address] [place] [address] MCHC (RBC) [Mass/Vol] 36.0 g/dL Normal 32-36 [facility] Comment on above: Performed By: #### C ARASH, CMP, 0-3, 17766-4 #### [facility] ([id number]) [address] [place] [address] 22833 MCV (RBC) [Entitic vol] 90 fL Normal 80-100 [facility] Comment on above: Performed By: #### C ARASH, CMP, 0-3, 59822-0 #### [facility] ([id number]) [address] [place] [address] 98967 Monocytes (Bld) [#/Vol] 0.6 10*3/uL Normal 0-0.9 [facility] Comment on above: Performed By: #### C ARASH, CMP, 0-3, 48354-6 #### [facility] ([id number]) [address] [place] [address] 22704 Monocytes/100 WBC (Bld) 7.6 % Normal [facility] Comment on above: Performed By: #### Remberto ANTOINE, CMP, 3039-3, 61888-8 #### [facility] ([id number]) [address] [place] [address] 34863 Neutrophils/100 WBC (Bld) 69.5 % Normal [facility] Comment on above: Performed By: #### Remberto BCA, CMP, 0-3, 80046-4 #### [facility] ([id number]) [address] [place] [address] 27106 Platelet mean volume (Bld) [Entitic vol] 8.2 fL Normal 7-12 [facility] Comment on above: Performed By: #### C BCA, CMP, 0-3, 85533-9 #### [facility] ([id number]) [address] [place] [address] 16349 Platelets (Bld) [#/Vol] 254 10*3/uL Normal 150-450 [facility] Comment on above: Performed By: #### C BCA, CMP, 3040-3, 91152-8 #### [facility] ([id number]) [address] [place] [address] 95881 RBC COUNT 4.66 X10E12/L Normal 4.10-5.70 [facility] Comment on above: Performed By: #### C BCA, CMP, 3040-3, 46674-0 #### [facility] ([id number]) [address] [place] [address] 61195 WBC (Bld) [#/Vol] 8.1 10*3/uL Normal 4.0-11.[address] [facility] Comment on above: Performed By: #### C BCA, CMP, 3040-3, 13634-1 #### [facility] ([id number]) [address] [place] [address]53 COMPREHENSIVE METABOLIC PANE [facility] 05-15-2024 Albumin [Mass/Vol] 4.5 g/dL Normal 3.2-5.[address] [facility] Comment on above: Performed By: #### C BCA, CMP, 3040-3, 46871-8 #### [facility] ([id number]) [address] [place] [address] 85400 ALP [Catalytic activity/Vol] 105 U/L Normal 39-130 [facility] Comment on above: Performed By: #### C BCA, CMP, 3040-3, 29540-0 #### [facility] ([id number]) [address] [place] [address] 83772 ALT [Catalytic activity/Vol] 33 U/L Normal 0-40 [facility] Comment on above: Performed By: #### C BCA, CMP, 3040-3, 19971-2 #### [facility] ([id number]) [address] [place] [address] 34409 Anion gap [Moles/Vol] 9 mmol/L Normal 5-15 [facility] Comment on above: Performed By: #### C BCA, CMP, 3040-3, 11259-9 #### [facility] ([id number]) [address] [place] [address] 86173 AST [Catalytic activity/Vol] 29 U/L Normal 0-41 [facility] Comment on above: Performed By: #### C BCA, CMP, 3040-3, 88165-3 #### [facility] ([id number]) [address] [place] [address] 06454 Bilirubin [Mass/Vol] 0.9 mg/dL Normal 0.3-1.2 [facility] Comment on above: Performed By: #### C BCA, CMP, 3040-3, 42400-4 #### [facility] ([id number]) [address] [place] [address] 72222 Calcium [Mass/Vol] 9.1 mg/dL Normal 8.5-10.[address] [facility] Comment on above: Performed By: #### C BCA, CMP, 3040-3, 44269-6 #### [facility] ([id number]) [address] [place] [address] 84897 Chloride [Moles/Vol] 96 mmol/L Low 98-109 [facility] Comment on above: Performed By: #### C BCA, CMP, 3040-3, 98734-7 #### [facility] ([id number]) [address] [place] [address] 95395 CO2 [Moles/Vol] 24 mmol/L Normal 22-32 [facility] Comment on above: Performed By: #### C ALEXANDRIA ANTOINE, 3040-3, 84867-1 #### [facility] ([id number]) [address] [place] [address] 29697 Creatinine [Mass/Vol] 0.91 mg/dL Normal 0.70-1.20 [facility] Comment on above: Result Comment: METH OD TRACEABLE TO IDMS STANDARD Performed By: #### C ALEXANDRIA ANTOINE, 3040-3, 19364-0 #### [facility] ([id number]) [address] [place] [address] 97704 eGFR (CKD-EPI) NON-RACE DEPENDENT >90 Normal >59 [facility] Comment on above: Result Comment: Reported eGFR is based on the CKD-EPI 2020 equation that does not use a race coefficient. Performed By: #### C ALEXANDRIA ANTOINE, 3040-3, 05629-5 #### [facility] ([id number]) [address] [place] [address] 47515 Glucose [Mass/Vol] 97 mg/dL Normal 65-[address] [facility] Comment on above: Performed By: #### C ALEXANDRIA ANTOINE, 3040-3, 08671-9 #### [facility] ([id number]) [address] [place] [address] 26134 Potassium [Moles/Vol] 3.2 mmol/L Low 3.5-5.0 [facility] Comment on above: Performed By: #### C ALEXANDRIA ANTOINE, 3040-3, 71699-8 #### [facility] ([id number]) [address] [place] [address] 83268 Protein [Mass/Vol] 7.2 g/dL Normal 6.0-8.[address] [facility] Comment on above: Performed By: #### C ALEXANDRIA ANTOINE, 3040-3, 09107-8 #### [facility] ([id number]) [address] [place] [address] 67871 Sodium [Moles/Vol] 129 mmol/L Low 134-[address] [facility] Comment on above: Performed By: #### C ARASH CMP, 3040-3, 84042-7 #### [facility] ([id number]) [address] [place] [address] 23030 Urea nitrogen [Mass/Vol] 15 mg/dL Normal 5-23 [facility] Comment on above: Performed By: #### C ALEXANDRIA ANTOINE, 3040-3, 14972-1 #### [facility] ([id number]) [address] [place] [address] 92466 LIPASEon 05-15-2024 Lipase [Catalytic activity/Vol] 37 U/L Normal 17-40 [facility] Comment on above: Performed By: #### C ALEXANDRIA ANTOINE, 3040-3, 53293-3 #### [facility] ([id number]) [address] [place] [address] 75367 Lactate (P cherie) [Moles/Vol]o n 05-15-2024 LACTATE W/REFLEX 1.0 mmol/L Normal 0.4-2.0 [facility] Comment on above: Result Comment: Result did not trigger repeat Lactate, re-order if needed. Performed By: #### 3 2133-1 #### [facility] ([id number]) [address] [place] [address] 93277 Troponin I.cardiac High sens itivity method [Mass/Vol]on 05-15-2024 1 HOUR TROP I, HIGH SENSITIVITY 3 ng/L Normal <21 [facility] Comment on above: Performed By: #### 8 9579-7 #### [facility] ([id number]) [address] [place] [address] 77633 TROPONIN I, HIGH SENSITIVITY 3 ng/L Normal <21 [facility] Comment on above: Performed By: #### C BCA, CMP, 3040-3, 60721-4 #### [facility] ([id number]) [address] [facility] [place] [address] Bacteria [Presence] in Urine by AutomatedOrdered By: Nish Davidson on 03-03-2024 Bacteria Auto Ql (U) None seen [HPF] None Seen [facility] Basophils Auto (Bld) [#/Vol] Ordered By: James De on 03-03-2024 Basophils (Bld) [#/Vol] 0.0 10*3/uL 0.0-0.2 [facility] Basophils/100 WBC Auto (Bld) Ordered By: James De on 03-03-2024 Basophils/100 WBC (Bld) 0.4 % . F [facility] Bilirubin Test strip Ql (U)O rdered By: Nish Davidson on 03-03-2024 Bilirubin Ql (U) Negative Negative [facility] Calcium [Mass/volume] in Ser um or PlasmaOrdered By: James De on 03-03-2024 Calcium [Mass/Vol] 9.5 mg/dL 8.6-10.3 [facility] Carbon dioxide, total [Moles /volume] in Serum or PlasmaOrdered By: James De on 03-03-2024 CO2 [Moles/Vol] 25.3 mmol/L 21.0-31.0 [facility] Chloride [Moles/volume] in S dereje or PlasmaOrdered By: James De on 03-03-2024 Chloride [Moles/Vol] 102 mmol/L 98-107 [facility] Color Auto (U)Ordered By: Dimitry Davidson on 03-03-2024 Color (U) Yellow Yellow [facility] Creatinine [Mass/volume] in Serum or PlasmaOrdered By: James De on 03-03-2024 Creatinine [Mass/Vol] 1.18 mg/dL 0.70-1.30 [facility] Eosinophils Auto (Bld) [#/Vo l]Ordered By: James De on 03-03-2024 Eosinophils (Bld) [#/Vol] 0.2 10*3/uL 0.0-0.45 [facility] Eosinophils/100 WBC Auto (Bl d)Ordered By: James De on 03-03-2024 Eosinophils/100 WBC (Bld) 2.6 % . [facility] Epithelial cells.squamous [# /area] in Urine sediment by Automated countOrdered By: Nish Davidson on 03-03-2024 Epithelial cells.squamous Auto (Urine sed) [#/Area] 1-2 [HPF] 0-2 [facility] Erythrocyte distribution wid th Auto (RBC) [Ratio]Ordered By: James De on 03-03-2024 Erythrocyte distribution width (RBC) [Ratio] 12.6 % 12.0-14.8 [facility] Erythrocytes [#/area] in Uri ne sediment by Automated countOrdered By: Nish Davidson on 03-03-2024 RBC Auto (Urine sed) [#/Area] None seen [HPF] 0-4 [facility] Glucose [Mass/volume] in Ser um or PlasmaOrdered By: James De on 03-03-2024 Glucose [Mass/Vol] 83 mg/dL 70-100 [facility] Comment on above: ADA recommended refe rence rangeRandom Glucose Reference Range is dependent on time and content of last meal. Glucose of more than 200 mg/dL in a nonstressed, ambulatory subject supports the diagnosis of Diabetes Mellitus. Glucose [Mass/volume] in Uri ne by Test stripOrdered By: Nish Davidson on 03-03-2024 Glucose Test strip (U) [Mass/Vol] Normal mg/dL Normal [facility] Hematocrit Auto (Bld) [Volum e fraction]Ordered By: James De on 03-03-2024 Hematocrit (Bld) [Volume fraction] 52.6 % High 38.8-50.0 [facility] Hemoglobin Test strip Ql (U) Ordered By: Nish Davidson on 03-03-2024 Hemoglobin Ql (U) Negative Negative [facility] Hemoglobin [Mass/volume] in BloodOrdered By: James De on 03-03-2024 Hemoglobin (Bld) [Mass/Vol] 18.5 g/dL High 13.0-17.0 [facility] Hyaline casts [#/area] in Ur ine sediment by Automated countOrdered By: Nish Davidson on 03-03-2024 Hyaline casts Auto (Urine sed) [#/Area] 0-8 [LPF] 0-8 [facility] Ketones Test strip Ql (U)Ord ered By: Nish Davidson on 03-03-2024 Ketones Ql (U) 2+ High Negative [facility] Leukocyte esterase [Presence ] in Urine by Test stripOrdered By: Nish Davidson on 03-03-2024 Leukocyte esterase Test strip Ql (U) Negative Negative [facility] Leukocytes [#/area] in Urine sediment by Automated countOrdered By: Nish Davidson on 03-03-2024 WBC Auto (Urine sed) [#/Area] 1-2 [HPF] 0-4 [facility] Leukocytes [#/volume] correc ernst for nucleated erythrocytes in Blood by Automated counOrdered By: James De on 03-03-2024 WBC corrected for nucl RBC Auto (Bld) [#/Vol] 9.0 10*3/uL 4.1-10.5 [facility] Lymphocytes Auto (Bld) [#/Vo l]Ordered By: James De on 03-03-2024 Lymphocytes (Bld) [#/Vol] 1.2 10*3/uL 1.00-4.8 [facility] Lymphocytes/100 WBC Auto (Bl d)Ordered By: James De on 03-03-2024 Lymphocytes/100 WBC (Bld) 13.4 % . [facility] MCH Auto (RBC) [Entitic mass ]Ordered By: James De on 03-03-2024 MCH (RBC) [Entitic mass] 32.8 pg 27.5-35.2 [facility] MCHC Auto (RBC) [Mass/Vol]Or dered By: James De on 03-03-2024 MCHC (RBC) [Mass/Vol] 35.1 g/dL 32.5-35.6 [facility] MCV Auto (RBC) [Entitic vol] Ordered By: James De on 03-03-2024 MCV (RBC) [Entitic vol] 93.4 fL 83.5-101 F [facility] Monocyte distribution width [Entitic volume] in Blood by AutomatedOrdered By: James De on 03-03-2024 Monocyte distribution width Auto (Bld) [Entitic vol] 17.08 % 0.00-20.00 [facility] Monocytes Auto (Bld) [#/Vol] Ordered By: James De on 03-03-2024 Monocytes (Bld) [#/Vol] 0.8 10*3/uL 0.0-0.8 [facility] Monocytes/100 WBC Auto (Bld) Ordered By: James De on 03-03-2024 Monocytes/100 WBC (Bld) 8.7 % . F [facility] Mucus [Presence] in Urine by AutomatedOrdered By: Nish Davidson on 03-03-2024 Mucus Auto Ql (U) 1+ [LPF] Abnormal [facility] Neutrophils Auto (Bld) [#/Vo l]Ordered By: James De on 03-03-2024 Neutrophils (Bld) [#/Vol] 6.7 10*3/uL 1.8-7.7 [facility] Neutrophils/100 WBC Auto (Bl d)Ordered By: James De on 03-03-2024 Neutrophils/100 WBC (Bld) 74.9 % . [facility] Nitrite Test strip Ql (U)Ord ered By: Nish Davidson on 03-03-2024 Nitrite Ql (U) Negative Negative [facility] No Panel InformationOrdered By: James De on 03-03-2024 Estimated GFR (CKD-EPI) > 60.0 mL/Min [facility] Creatinine Clearance (Chem 68.43 [facility] Nucleated erythrocytes [Pres ence] in Blood by Automated countOrdered By: James De on 03-03-2024 Nucleated RBC Auto Ql (Bld) 0.4 /100{WBC} 0-0.5 [facility] Platelet adequacy [Presence] in Blood by Light microscopyOrdered By: James De on 03-03-2024 Platelets LM Ql (Bld) Normal Normal [facility] Platelet mean volume Auto (B ld) [Entitic vol]Ordered By: James De on 03-03-2024 Platelet mean volume (Bld) [Entitic vol] 8.4 fL 6.6-10.1 [facility] Platelet morphology finding [Identifier] in BloodOrdered By: James De on 03-03-2024 Platelet morphology finding Nom (Bld) Normal Normal [facility] Platelets Auto (Bld) [#/Vol] Ordered By: James De on 03-03-2024 Platelets (Bld) [#/Vol] 207 10*3/uL 150-450 [facility] Potassium [Moles/volume] in Serum or PlasmaOrdered By: James De on 03-03-2024 Potassium [Moles/Vol] 3.7 mmol/L 3.5-5.1 [facility] Protein Test strip (U) [Mass /Vol]Ordered By: Nish Davidson on 03-03-2024 Protein (U) [Mass/Vol] Trace mg/dL High Negative F [facility] RBC Auto (Bld) [#/Vol]Ordere d By: James De on 03-03-2024 RBC (Bld) [#/Vol] 5.64 10*6/uL High 3.90-5.60 [facility] RBC morphologyOrdered By: Asad De on 03-03-2024 RBC morphology finding Nom (Bld) Normal Normal [facility] Serum or plasma anion gap de terminationOrdered By: James De on 03-03-2024 Anion gap [Moles/Vol] 12.4 mmol/L 6.0-15.0 [facility] Sodium [Moles/volume] in Ser um or PlasmaOrdered By: James De on 03-03-2024 Sodium [Moles/Vol] 136 mmol/L 136-145 [facility] Specific gravity Test strip (U) [Rel density]Ordered By: Nish Davidson on 03-03-2024 Specific gravity (U) [Rel density] 1.015 1.001-1.030 [facility] Transitional cells [#/area] in Urine by Computer assisted methodOrdered By: Nish Davidson on 03-03-2024 Transitional cells Computer assisted (U) [#/Area] 1-2 [HPF] High 0-1 [facility] Urea nitrogen [Mass/volume] in Serum or PlasmaOrdered By: James De on 03-03-2024 Urea nitrogen [Mass/Vol] 8 mg/dL 7 [facility] Urine appearanceOrdered By: Nish Davidson on 03-03-2024 Appearance (U) Clear Clear [facility] Urobilinogen Test strip (U) [Mass/Vol]Ordered By: Nish Davidson on 03-03-2024 Urobilinogen (U) [Mass/Vol] Normal mg/dL Normal [facility] WBC Auto (Bld) [#/Vol]Ordere d By: James eD on 03-03-2024 WBC (Bld) [#/Vol] 9.0 10*3/uL 4.1-10.5 [facility] pH Test strip (U)Ordered By: Nish Davidson on 03-03-2024 pH (U) 6.0 [pH] 5.0-9.0 [facility] Surgical Pathologyon 024 Surgical Pathology Normal [facility] Comment on above: Result Comment: [facility] [address] [place] [address] Surgical Pathology Consultation Patient Name:CHAI ARNOLD:1970 (Age: 53)Gender:MTaken:02/17/2024eported:02/22/2024hysician(s):Jennyfer Augustin MD ([phone])Copy To: Rec. #:[id number]: #[id number] Final Pathologic Diagnosis 1. Colon polyp 55cm: Hyperplastic polyp. 2. Colon polyp 35cm: Tubular adenoma. Report Electronically Signed Out 02/22/2024Keren Bee MD Interpretation performed at [facility], [address] [facility] [address], License number: [id number]. Clinical History Change in bowel habits. Gross Description 1. Received in formalin labeled, CATALINA, 55 cm is a mccray-richardson 0.3 cm soft tissue.. The specimen is filtered and entirely submitted in a single cassette. (1, ns, [id number], m8) SM 2. Received in formalin labeled, SAUMYAFTZ, 35 cm is a pale richardson 0.3 cm the specimen is filtered and entirely submitted in a single cassette. (1, ns, [id number], m8) slm/02/20/2024GR Specimen(s) Received 1: Colon polyp 55cm 2: Colon polyp 35cm Fee Codes(s): 1; 99286 2; 18104 Alanine aminotransferase [En zymatic activity/volume] in Serum or PlasmaOrdered By: Jennyfer Winkler on 01-29-2024 ALT [Catalytic activity/Vol] 24 U/L 7-52 [facility] Albumin [Mass/volume] in Ser um or Plasma by Bromocresol green (BCG) dye binding methoOrdered By: Jennyfer Winkler on 01-29-2024 Albumin BCG dye [Mass/Vol] 4.9 g/dL 3.5-5.7 [facility] Alkaline phosphatase [Enzyma tic activity/volume] in Serum or PlasmaOrdered By: Jennyfer Winkler on 01-29-2024 ALP [Catalytic activity/Vol] 96 U/L 34-104 [facility] Amylase [Enzymatic activity/ volume] in Serum or PlasmaOrdered By: Jennyfer Winkler on 01-29-2024 Amylase [Catalytic activity/Vol] 47 U/L 29-103 [facility] Aspartate aminotransferase [ Enzymatic activity/volume] in Serum or PlasmaOrdered By: Jennyfer Winkler on 01-29-2024 AST [Catalytic activity/Vol] 21 U/L 13-39 [facility] Basophils Auto (Bld) [#/Vol] Ordered By: Jennyfer Winkler on 01-29-2024 Basophils (Bld) [#/Vol] N/A F [facility] Basophils/100 WBC Auto (Bld) Ordered By: Jennyfer Winkler on 01-29-2024 Basophils/100 WBC (Bld) N/A F [facility] Bilirubin Test strip Ql (U)O rdered By: Jennyfer Winkler on 01-29-2024 Bilirubin Ql (U) Negative Negative [facility] Bilirubin.direct [Mass/volum e] in Serum or PlasmaOrdered By: Jennyfer Winkler on 01-29-2024 Bilirubin.direct [Mass/Vol] 0.10 mg/dL 0.03-0.18 [facility] Bilirubin.total [Mass/volume ] in Serum or PlasmaOrdered By: Jennyfer Winkler on 01-29-2024 Bilirubin [Mass/Vol] 0.8 mg/dL 0.3-1.0 [facility] Calcium [Mass/volume] in Ser um or PlasmaOrdered By: Jennyfer Winkler on 01-29-2024 Calcium [Mass/Vol] 10.2 mg/dL 8.6-10.3 [facility] Carbon dioxide, total [Moles /volume] in Serum or PlasmaOrdered By: Jennyfer Winkler on 01-29-2024 CO2 [Moles/Vol] 26.4 mmol/L 21.0-31.0 [facility] Chloride [Moles/volume] in S dereje or PlasmaOrdered By: Jennyfer Winkler on 01-29-2024 Chloride [Moles/Vol] 98 mmol/L 98-107 [facility] Color Auto (U)Ordered By: Ella Winkler on 01-29-2024 Color (U) Colorless Yellow [facility] Creatinine [Mass/volume] in Serum or PlasmaOrdered By: Jennyfer Winkler on 01-29-2024 Creatinine [Mass/Vol] 1.07 mg/dL 0.70-1.30 [facility] Eosinophils Auto (Bld) [#/Vo l]Ordered By: Jennyfer Winkler on 01-29-2024 Eosinophils (Bld) [#/Vol] N/A [facility] Eosinophils/100 WBC Auto (Bl d)Ordered By: Jennyfer Winkler on 01-29-2024 Eosinophils/100 WBC (Bld) N/A [facility] Eosinophils/100 WBC Manual c nt (Bld)Ordered By: Jennyfer Winkler on 01-29-2024 Eosinophils/100 WBC (Bld) 5 % High 1-3 [facility] Erythrocyte distribution wid th Auto (RBC) [Ratio]Ordered By: Jennyfer Winkler on 01-29-2024 Erythrocyte distribution width (RBC) [Ratio] 12.1 % 12.0-14.8 [facility] Giant platelets/100 leukocyt es [Ratio] in Blood by Manual countOrdered By: Jennyfer Winkler on 01-29-2024 Giant platelets/100 WBC Manual cnt (Bld) [Ratio] 1 /100{WBC} [facility] Globulin Calc (S) [Mass/Vol] Ordered By: Jennyfer Winkler on 01-29-2024 Globulin (S) [Mass/Vol] 3.1 g/dL F [facility] Glucose [Mass/volume] in Ser um or PlasmaOrdered By: Jennyfer Winkler on 01-29-2024 Glucose [Mass/Vol] 103 mg/dL High 70-100 [facility] Comment on above: ADA recommended refe rence rangeRandom Glucose Reference Range is dependent on time and content of last meal. Glucose of more than 200 mg/dL in a nonstressed, ambulatory subject supports the diagnosis of Diabetes Mellitus. Glucose [Mass/volume] in Uri ne by Test stripOrdered By: Jennyfer Winkler on 01-29-2024 Glucose Test strip (U) [Mass/Vol] Normal mg/dL Normal [facility] Hematocrit Auto (Bld) [Volum e fraction]Ordered By: Jennyfer Winkler on 01-29-2024 Hematocrit (Bld) [Volume fraction] 54.1 % High 38.8-50.0 [facility] Hemoglobin Test strip Ql (U) Ordered By: Jennyfer Winkler on 01-29-2024 Hemoglobin Ql (U) Negative Negative [facility] Hemoglobin [Mass/volume] in BloodOrdered By: Jennyfer Winkler on 01-29-2024 Hemoglobin (Bld) [Mass/Vol] 18.9 g/dL High 13.0-17.0 [facility] Ketones Test strip Ql (U)Ord ered By: Jennyfer Winkler on 01-29-2024 Ketones Ql (U) Negative Negative [facility] Leukocyte esterase [Presence ] in Urine by Test stripOrdered By: Jennyfer Wnikler on 01-29-2024 Leukocyte esterase Test strip Ql (U) Negative Negative [facility] Leukocytes [#/volume] correc ernst for nucleated erythrocytes in Blood by Automated counOrdered By: Jennyfer Winkler on 01-29-2024 WBC corrected for nucl RBC Auto (Bld) [#/Vol] 6.8 10*3/uL 4.1-10.5 [facility] Lipase [Enzymatic activity/v olume] in Serum or PlasmaOrdered By: Jennyfer Winkler on 01-29-2024 Lipase [Catalytic activity/Vol] 29.0 U/L 11.0-82.0 [facility] Lymphocytes Auto (Bld) [#/Vo l]Ordered By: Jennyfer Winkler on 01-29-2024 Lymphocytes (Bld) [#/Vol] N/A [facility] Lymphocytes/100 WBC Auto (Bl d)Ordered By: Jennyfer Winkler on 01-29-2024 Lymphocytes/100 WBC (Bld) N/A [facility] Lymphocytes/100 WBC Manual c nt (Bld)Ordered By: Jennyfer Winkler on 01-29-2024 Lymphocytes/100 WBC (Bld) 28 % 18-42 [facility] MCH Auto (RBC) [Entitic mass ]Ordered By: Jennyfer Winkler on 01-29-2024 MCH (RBC) [Entitic mass] 32.4 pg 27.5-35.2 [facility] MCHC Auto (RBC) [Mass/Vol]Or dered By: Jennyfer Winkler on 01-29-2024 MCHC (RBC) [Mass/Vol] 35.0 g/dL 32.5-35.6 [facility] MCV Auto (RBC) [Entitic vol] Ordered By: Jennyfer Winkler on 01-29-2024 MCV (RBC) [Entitic vol] 92.7 fL 83.5-101 F [facility] Monocyte distribution width [Entitic volume] in Blood by AutomatedOrdered By: Jennyfer Winkler on 01-29-2024 Monocyte distribution width Auto (Bld) [Entitic vol] 18.41 % 0.00-20.00 [facility] Monocytes Auto (Bld) [#/Vol] Ordered By: Jennyfer Winkler on 01-29-2024 Monocytes (Bld) [#/Vol] N/A F [facility] Monocytes/100 WBC Auto (Bld) Ordered By: Jennyfer Winkler on 01-29-2024 Monocytes/100 WBC (Bld) N/A F [facility] Monocytes/100 WBC Manual cnt (Bld)Ordered By: Jennyfer Winkler on 01-29-2024 Monocytes/100 WBC (Bld) 4 % 2-11 [facility] Neutrophils Auto (Bld) [#/Vo l]Ordered By: Jennyfer Winkler on 01-29-2024 Neutrophils (Bld) [#/Vol] N/A [facility] Neutrophils/100 WBC Auto (Bl d)Ordered By: Jennyfer Winkler on 01-29-2024 Neutrophils/100 WBC (Bld) N/A [facility] Nitrite Test strip Ql (U)Ord ered By: Jennyfer Winkler on 01-29-2024 Nitrite Ql (U) Negative Negative [facility] No Panel InformationOrdered By: Jennyfer Winkler on 01-29-2024 Estimated GFR (CKD-EPI) > 60.0 mL/Min [facility] Creatinine Clearance (Chem 83.32 [facility] Nucleated erythrocytes [Pres ence] in Blood by Automated countOrdered By: Jennyfer Winkler on 01-29-2024 Nucleated RBC Auto Ql (Bld) N/A [facility] Platelet adequacy [Presence] in Blood by Light microscopyOrdered By: Jennyfer Winkler on 01-29-2024 Platelets LM Ql (Bld) Normal Normal [facility] Platelet mean volume Auto (B ld) [Entitic vol]Ordered By: Jennyfer Winkler on 01-29-2024 Platelet mean volume (Bld) [Entitic vol] 8.1 fL 6.6-10.1 [facility] Platelet morphology finding [Identifier] in BloodOrdered By: Jennyfer Winkler on 01-29-2024 Platelet morphology finding Nom (Bld) Normal Normal [facility] Platelets Auto (Bld) [#/Vol] Ordered By: Jennyfer Winkler on 01-29-2024 Platelets (Bld) [#/Vol] 245 10*3/uL 150-450 [facility] Potassium [Moles/volume] in Serum or PlasmaOrdered By: Jennyfer Winkler on 01-29-2024 Potassium [Moles/Vol] 3.9 mmol/L 3.5-5.1 [facility] Protein Test strip (U) [Mass /Vol]Ordered By: Jennyfer Winkler on 01-29-2024 Protein (U) [Mass/Vol] Negative Negative [facility] Protein [Mass/volume] in Ser um or PlasmaOrdered By: Jennyfer Winkler on 01-29-2024 Protein [Mass/Vol] 8.0 g/dL 6.4-8.9 [facility] RBC Auto (Bld) [#/Vol]Ordere d By: Jennyfer Winkler on 01-29-2024 RBC (Bld) [#/Vol] 5.83 10*6/uL High 3.90-5.60 [facility] RBC morphologyOrdered By: Ella Winkler on 01-29-2024 RBC morphology finding Nom (Bld) Normal Normal [facility] Segmented neutrophils/100 WB C Manual cnt (Bld)Ordered By: Jennyfer Winkler on 01-29-2024 Segmented neutrophils/100 WBC (Bld) 58 % 50-70 [facility] Serum or plasma albumin/glob ulin mass ratioOrdered By: Jennyfer Winkler on 01-29-2024 Albumin/Globulin [Mass ratio] 1.6 {ratio} [facility] Serum or plasma anion gap de terminationOrdered By: Jennyfer Winkler on 01-29-2024 Anion gap [Moles/Vol] 10.5 mmol/L 6.0-15.0 [facility] Serum or plasma non-glucuron idated bilirubin measurement (mass/volume)Ordered By: Jennyfer Winkler on 01-29-2024 Bilirubin.indirect [Mass/Vol] 0.7 mg/dL [facility] Sodium [Moles/volume] in Ser um or PlasmaOrdered By: Jennyfer Winkler on 01-29-2024 Sodium [Moles/Vol] 131 mmol/L Low 136-145 [facility] Specific gravity Test strip (U) [Rel density]Ordered By: Jennyfer Winkler on 01-29-2024 Specific gravity (U) [Rel density] 1.003 1.001-1.030 [facility] Urea nitrogen [Mass/volume] in Serum or PlasmaOrdered By: Jennyfer Winkler on 01-29-2024 Urea nitrogen [Mass/Vol] 6 mg/dL Low 7-25 [facility] Urine appearanceOrdered By: Jennyfer Winkler on 01-29-2024 Appearance (U) Clear Clear [facility] Urobilinogen Test strip (U) [Mass/Vol]Ordered By: Jennyfer Winkler on 01-29-2024 Urobilinogen (U) [Mass/Vol] Normal mg/dL Normal [facility] Variant lymphocytes/100 WBC Manual cnt (Bld)Ordered By: Jennyfer Winkler on 01-29-2024 Variant lymphocytes/100 WBC (Bld) 6 % 0-12 [facility] WBC Auto (Bld) [#/Vol]Ordere d By: Jennyfer Winkler on 01-29-2024 WBC (Bld) [#/Vol] 6.8 10*3/uL 4.1-10.5 [facility] pH Test strip (U)Ordered By: Jennyfer Winkler on 01-29-2024 pH (U) 7.5 [pH] 5.0-9.0 [facility] CBC AUTO DIFFon 03-26-2022 BASO # 0.1 103/ul Normal 0.0-0.1 [facility] Comment on above: Performed By: #### C BC #### [facility] [address] [address] [address] Pravin Travis Basophils/100 WBC (Bld) 0.7 % Normal 0.2-2.0 [facility] Comment on above: Performed By: #### C BC #### [facility] [address] [place] [address] Dr. Pravin Travis EO # 0.6 103/ul Normal 0.0-0.7 [facility] Comment on above: Performed By: #### C BC #### [facility] [address] [place] [address] Dr. Pravin Travis Eosinophils/100 WBC (Bld) 7.4 % Critically high 0.9-7.0 [facility] Comment on above: Performed By: #### C BC #### [facility] [address] [place] [address] Dr. Pravin Travis Erythrocyte distribution width (RBC) [Ratio] 12.3 % Normal 11.0-15.0 [facility] Comment on above: Performed By: #### C BC #### [facility] [address] [place] [address] Dr. Pravin Travis Hematocrit (Bld) [Volume fraction] 47.2 % Normal 42.0-54.0 [facility] Comment on above: Performed By: #### C BC #### [facility] [address] [place] [address] Dr. Pravin Travis Hemoglobin (Bld) [Mass/Vol] 16.2 g/dL Normal 14.0-18.0 [facility] Comment on above: Performed By: #### C BC #### [facility] [address] [place] [address] Dr. Pravin Travis IG # 0.03 10e3/ul Normal 0.00-0.03 [facility] Comment on above: Performed By: #### C BC #### [facility] [address] [place] [address] Dr. Pravin Travis IG % 0.4 % Normal 0.0-0.5 [facility] Comment on above: Performed By: #### C BC #### [facility] [address] [place] [address] Dr. Pravin Travis LYMPH # 2.1 103/ul Normal 1.2-3.8 [facility] Comment on above: Performed By: #### C BC #### [facility] [address] [place] [address] Dr. Pravin Travis Lymphocytes/100 WBC (Bld) 24.3 % Normal 20.5-60.0 [facility] Comment on above: Performed By: #### C BC #### [facility] [address] [place] [address] Dr. Pravin Travis MANUAL DIFF REQ NO Normal [facility] Comment on above: Performed By: #### C BC #### [facility] [address] [place] [address] Dr. Pravin Travis MCH (RBC) [Entitic mass] 32.6 pg Normal 25.9-34.0 [facility] Comment on above: Performed By: #### C BC #### [facility] [address] [place] [address] Dr. Pravin Travis MCHC (RBC) [Mass/Vol] 34.3 g/dL Normal 29.9-35.2 [facility] Comment on above: Performed By: #### C BC #### [facility] [address] [place] [address] Dr. Pravin Travis MCV (RBC) [Entitic vol] 95.0 fL Critically high 80.0-94 .0 [facility] Comment on above: Performed By: #### C BC #### [facility] [address] [place] [address] Dr. Pravin Travis MONO # 0.8 103/ul Normal 0.3-0.8 [facility] Comment on above: Performed By: #### C BC #### [facility] [address] [place] [address] Dr. Pravin Travis Monocytes/100 WBC (Bld) 9.7 % Normal 1.7-12.0 [facility] Comment on above: Performed By: #### C BC #### [facility] [address] [place] [address] Dr. Pravin Travis NEUT # 4.9 103/ul Normal 1.4-6.5 [facility] Comment on above: Performed By: #### C BC #### [facility] [address] [place] [address] Dr. Pravin Travis Neutrophils/100 WBC (Bld) 57.5 % Normal 43.0-75.0 [facility] Comment on above: Performed By: #### C BC #### [facility] [address] [place] [address] Dr. Pravin Travis Platelet mean volume (Bld) [Entitic vol] 10.4 fL Normal 9.5-13.5 [facility] Comment on above: Performed By: #### C BC #### [facility] [address] [place] [address] Dr. Pravin Travis PLT 215 103/ul Normal 150-450 [facility] Comment on above: Performed By: #### C BC #### [facility] [address] [place] [address] Dr. Pravin Travis RBC 4.97 106/ul Normal 4.70-6.10 [facility] Comment on above: Performed By: #### C BC #### [facility] [address] [place] [address] Dr. Pravin Travis WBC 8.6 103/ul Normal 4.0-11.0 [facility] Comment on above: Performed By: #### C BC #### [facility] [address] [place] [address] ABD/PELV W CONon [...] by: ALANA MORROW Date: 2022-03-26 01:45 Normal [facility] ER URINE PROFILEon 2 Bilirubin Ql (U) Negative Normal NEGATIVE [facility] Comment on above: Performed By: #### E RUR #### [facility] [address] [place] [address] Dr. Pravin Travis Clarity (U) SL CLOUDY Abnormal CLEAR [facility] Comment on above: Performed By: #### E RUR #### [facility] [address] [place] [address] Dr. Pravin Travis Color (U) LT. YELLOW Normal YELLOW [facility] Comment on above: Performed By: #### E RUR #### [facility] [address] [place] [address] Dr. Pravin Travis ERUAHMayi A micrscopic examination will be performed if indicated. Normal [facility] Comment on above: Performed By: #### E RUR #### [facility] [address] [place] [address] Dr. Pravin Travis Glucose Ql (U) Negative Normal NEGATIVE [facility] Comment on above: Performed By: #### E RUR #### [facility] [address] [place] [address] Dr. Pravin Travis Hemoglobin Ql (U) Negative Normal NEGATIVE [facility] Comment on above: Performed By: #### E RUR #### [facility] [address] [place] [address] Dr. Pravin Travis Ketones Ql (U) Negative Normal NEGATIVE [facility] Comment on above: Performed By: #### E RUR #### [facility] [address] [place] [address] Dr. Pravin Travis LEUKOCYTES Negative Normal NEGATIVE [facility] Comment on above: Performed By: #### E RUR #### [facility] [address] [place] [address] Dr. Pravin Travis Nitrite Ql (U) Negative Normal NEGATIVE [facility] Comment on above: Performed By: #### E RUR #### [facility] [address] [place] [address] Dr. Pravin Travis pH (U) 7.5 [pH] Normal 5-9 [facility] Comment on above: Performed By: #### E RUR #### [facility] [address] [place] [address] Dr. Pravin Travis SPEC GRAVITY 1.015 Normal 1.005-<=1.02 5 [facility] Comment on above: Performed By: #### E RUR #### [facility] [address] [place] [address] Dr. Pravin Travis UA PROTEIN Negative Normal NEGATIVE/ TRACE [facility] Comment on above: Performed By: #### E RUR #### [facility] [address] [place] [address] Dr. Pravin Travis UR MICRO IND NOT INDICATED Normal [facility] Comment on above: Performed By: #### E RUR #### [facility] [address] [place] [address] Dr. Pravin Travis Urobilinogen Qn (U) 0.2 {Katie'U}/dL Normal 0.2 - 1. 0 [facility] Comment on above: Performed By: #### E RUR #### [facility] [address] [address] [address] Pravin Travis PROF 14(COMP METB)on 022 Albumin [Mass/Vol] 4.3 g/dL Normal 3.4-5.0 [facility] Comment on above: Performed By: #### C MP #### [facility] [address] [address] [address] Pravin Travis Albumin/Globulin [Mass ratio] 1.3 {ratio} Normal [facility] Comment on above: Performed By: #### C MP #### [facility] [address] [place] [address] Dr. Pravin Travis ALP [Catalytic activity/Vol] 92 U/L Normal 46-116 [facility] Comment on above: Performed By: #### C MP #### [facility] [address] [place] [address] Dr. Pravin Travis ALT [Catalytic activity/Vol] 31 U/L Normal 16-63 [facility] Comment on above: Performed By: #### C MP #### [facility] [address] [place] [address] Dr. Pravin Travis Anion gap [Moles/Vol] 10.9 mmol/L Normal [facility] Comment on above: Performed By: #### C MP #### [facility] [address] [place] [address] Dr. Pravin Travis AST [Catalytic activity/Vol] 31 U/L Normal 15-37 [facility] Comment on above: Performed By: #### C MP #### [facility] [address] [place] [address] Dr. Pravin Travis Bilirubin [Mass/Vol] 0.5 mg/dL Normal 0.2-1.0 [facility] Comment on above: Performed By: #### C MP #### [facility] [address] [place] [address] Dr. Pravin Travis Calcium [Mass/Vol] 9.3 mg/dL Normal 8.5-10.1 [facility] Comment on above: Performed By: #### C MP #### [facility] [address] [address] [address] Pravin Travis Chloride [Moles/Vol] 103 mmol/L Normal 98-107 [facility] Comment on above: Performed By: #### C MP #### [facility] [address] [place] [address] Dr. Pravin Travis CO2 [Moles/Vol] 29.8 mmol/L Normal 21.0-32.0 [facility] Comment on above: Performed By: #### C MP #### [facility] [address] [place] [address] Dr. Pravin Travis Creatinine [Mass/Vol] 1.22 mg/dL Normal 0.70-1.30 [facility] Comment on above: Performed By: #### C MP #### [facility] [address] [place] [address] Dr. Pravin Travis EGFR-AF POLISH >60 Normal >=60 [facility] Comment on above: Performed By: #### C MP #### [facility] [address] [place] [address] Dr. Pravin Travis EGFR-NON AF POLISH >60 Normal >=60 [facility] Comment on above: Performed By: #### C MP #### [facility] [address] [place] [address] Dr. Pravin Travis Globulin (S) [Mass/Vol] 3.4 g/dL Normal [facility] Comment on above: Performed By: #### C MP #### [facility] [address] [address] [address] Pravin Travis Glucose [Mass/Vol] 91 mg/dL Normal 74-106 [facility] Comment on above: Performed By: #### C MP #### [facility] [address] [place] [address] Dr. Pravin Travis Potassium [Moles/Vol] 3.7 mmol/L Normal 3.5-5.1 [facility] Comment on above: Performed By: #### C MP #### [facility] [address] [place] [address] Dr. Pravin Travis Protein [Mass/Vol] 7.7 g/dL Normal 6.4-8.2 [facility] Comment on above: Performed By: #### C MP #### [facility] [address] [address] [address] Pravin Travis Sodium [Moles/Vol] 140 mmol/L Normal 136-145 [facility] Comment on above: Performed By: #### C MP #### [facility] [address] [address] [address] Pravin Travis Urea nitrogen [Mass/Vol] 11.0 mg/dL Normal 7.0-18.0 [facility] Comment on above: Performed By: #### C MP #### [facility] [address] [place] [address] Dr. Pravin Travis Urea nitrogen/Creatinine [Mass ratio] 9.0 mg/mg Normal [facility] Comment on above: Performed By: #### C MP #### [facility] [address] [place] [address] Dr. Pravin Travis COVID Quick Testingon 2021 Result Positive [employer] Other COVID Quick Testingon 2020 Result Negative [employer] Other Quick Fluon 08-11-2021 FLUAV Ab CF (S) [Titer] Negative [employer] Other FLUBV Ab CF (S) [Titer] Negative [employer] Other Vital Signs Date Time Vital Sign Value Performing Clinician Facility 03-19-2025 16:30-0400 Diastolic blood pressure 113 mm[Hg] Cisco Furlong DO Work Phone: [facility] 03-19-2025 16:30-0400 Heart rate 76 /min Cisco Attenderng DO Work Phone: [facility] 03-19-2025 16:30-0400 Respiratory rate 16 /min [employer] DO Work Phone: [facility] 03-19-2025 16:30-0400 SaO2% (BldA) [Mass fraction] 97 % Cisco Furlong DO Work Phone: [facility] 03-19-2025 16:30-0400 Systolic blood pressure 143 mm[Hg] Cisco Furlong DO Work Phone: [facility] 03-19-2025 16:00-0400 Body temperature 96.8 [degF] Cisco Furlong DO Work Phone: [facility] 03-19-2025 11:36-0400 Body height 172.72 cm Cisco Furlong DO Work Phone: [facility] 03-19-2025 11:36-0400 Body weight 90.9 kg Cisco Furlong DO Work Phone: [facility] 02-28-2025 12:24-0400 Body height 175.3 cm Lydia Sankovic PA-C Work Phone: [facility] 02-28-2025 12:24-0400 Body mass index (BMI) [Ratio] 29.53 kg/m2 Lydia Sankovic PA-C Work Phone: [facility] 02-28-2025 12:24-0400 Body temperature 97 [degF] Lydia Sankovic PA-C Work Phone: [facility] 02-28-2025 12:24-0400 Body weight 90.72 kg Lydia Sankovic PA-C Work Phone: [facility] 02-28-2025 12:24-0400 Diastolic blood pressure 93 mm[Hg] Lydia Sankovic PA-C Work Phone: [facility] 02-28-2025 12:24-0400 Heart rate 76 /min Lydia Sankovic PA-C Work Phone: [facility] 02-28-2025 12:24-0400 SaO2% (BldA) [Mass fraction] 97 % Lydia Sankovic PA-C Work Phone: [facility] 02-28-2025 12:24-0400 Systolic blood pressure 141 mm[Hg] Lydia Noelle ALAN-Remberto Work Phone: [facility] 02-18-2025 13:45-0400 Body height 172.72 cm Icsco Furlong DO Work Phone: [facility] 02-18-2025 13:45-0400 Body mass index (BMI) [Ratio] 28.8 kg/m2 Cisco Furlong DO Work Phone: [facility] 02-18-2025 13:45-0400 Body weight 86.18 kg Cisco Furlong DO Work Phone: [facility] 01-09-2025 12:53-0400 Diastolic blood pressure 109 mm[Hg] Mohamad Mouchli [facility] 01-09-2025 12:53-0400 Mean blood pressure 131 mm[Hg] Mohamad Mouchli [facility] 01-09-2025 12:53-0400 Systolic blood pressure 174 mm[Hg] Mohamad Mouchli [facility] 01-09-2025 12:43-0400 Blood Pressure Location Mohamad Mouchli [facility] 01-09-2025 12:43-0400 Diastolic blood pressure 117 mm[Hg] Mohamad Mouchli [facility] 01-09-2025 12:43-0400 Heart rate 80 /min Mohamad Mouchli [facility] 01-09-2025 12:43-0400 Systolic blood pressure 179 mm[Hg] Mohamad Mouchli [facility] 12-10-2024 13:07-0400 Body height 172.7 cm Cisco Furlong DO Work Phone: [facility] 12-10-2024 13:07-0400 Body mass index (BMI) [Ratio] 29.47 kg/m2 Cisco Furlong DO Work Phone: [facility] 12-10-2024 13:07-0400 Body temperature 98.4 [degF] Cisco Furlong DO Work Phone: [facility] 12-10-2024 13:07-0400 Body weight 87.91 kg Cisco Furlong DO Work Phone: [facility] 12-10-2024 13:07-0400 Diastolic blood pressure 90 mm[Hg] Cisco Furlong DO Work Phone: [facility] 12-10-2024 13:07-0400 Heart rate 102 /min Cisco Furlong DO Work Phone: [facility] 12-10-2024 13:07-0400 Respiratory rate 18 /min Cisco Furlong DO Work Phone: [facility] 12-10-2024 13:07-0400 SaO2% (BldA) [Mass fraction] 97 % Cisco Furlong DO Work Phone: [facility] 12-10-2024 13:07-0400 Systolic blood pressure 140 mm[Hg] Cisco Furlong DO Work Phone: [facility] 09-11-2024 14:23-0500 Body height 172.7 cm Cisco Furlong DO Work Phone: [facility] 09-11-2024 14:23-0500 Body mass index (BMI) [Ratio] 28.89 kg/m2 Cisco Furlong DO Work Phone: [facility] 09-11-2024 14:23-0500 Body temperature 97.9 [degF] Cisco Furlong DO Work Phone: [facility] 09-11-2024 14:23-0500 Body weight 86.18 kg Cisco Furlong DO Work Phone: [facility] 09-11-2024 14:23-0500 Diastolic blood pressure 90 mm[Hg] Cisco Furlong DO Work Phone: [facility] 09-11-2024 14:23-0500 Heart rate 105 /min Cisco Furlong DO Work Phone: [facility] 09-11-2024 14:23-0500 Respiratory rate 20 /min Cisco Furlong DO Work Phone: [facility] 09-11-2024 14:23-0500 SaO2% (BldA) [Mass fraction] 99 % Cisco Furlong DO Work Phone: [facility] 09-11-2024 14:23-0500 Systolic blood pressure 140 mm[Hg] Cisco Furlong DO Work Phone: [facility] 03-15-2024 16:08-0400 Body height 172.7 cm Cisco Furlong DO Work Phone: [facility] 03-15-2024 16:08-0400 Body mass index (BMI) [Ratio] 27.79 kg/m2 Cisco Furlong DO Work Phone: [facility] 03-15-2024 16:08-0400 Body temperature 97.7 [degF] Cisco Furlong DO Work Phone: [facility] 03-15-2024 16:08-0400 Body weight 82.92 kg Cisco Furlong DO Work Phone: [facility] 03-15-2024 16:08-0400 Diastolic blood pressure 70 mm[Hg] Cisco Furlong DO Work Phone: [facility] 03-15-2024 16:08-0400 Heart rate 79 /min Cisco Furlong DO Work Phone: [facility] 03-15-2024 16:08-0400 SaO2% (BldA) [Mass fraction] 97 % Cisco Furlong DO Work Phone: [facility] 03-15-2024 16:08-0400 Systolic blood pressure 120 mm[Hg] Cisco Furlong DO Work Phone: [facility] 03-03-2024 14:00-0400 Diastolic blood pressure 95 mm[Hg] DO Cisco Furlong Work Phone: [facility] 03-03-2024 14:00-0400 Heart rate 79 /min DO Cisco Furlong Work Phone: [facility] 03-03-2024 14:00-0400 Respiratory rate 18 /min DO Cisco Furlong Work Phone: [facility] 03-03-2024 14:00-0400 SaO2% (BldA) [Mass fraction] 95 % DO Cisco Furlong Work Phone: [facility] 03-03-2024 14:00-0400 Systolic blood pressure 147 mm[Hg] DO Cisco Furlong Work Phone: [facility] 03-03-2024 11:20-0400 Body temperature 98.2 [degF] DO Cisco Furlong Work Phone: [facility] 03-03-2024 11:18-0400 Body height 172.72 cm DO Cisco Furlong Work Phone: [facility] 03-03-2024 11:18-0400 Body weight 80.65 kg DO Cisco Furlong Work Phone: [facility] 02-02-2024 11:29-0400 Body temperature 98.6 [degF] Didi Orzech [facility] 02-02-2024 11:29-0400 Diastolic blood pressure 81 mm[Hg] Didi Orzech [facility] 02-02-2024 11:29-0400 Heart rate 77 /min Didi Orzech [facility] 02-02-2024 11:29-0400 Respiratory rate 16 /min Didi Orzech [facility] 02-02-2024 11:29-0400 Systolic blood pressure 136 mm[Hg] Didi Orzech [facility] 01-30-2024 01:11-0400 Heart rate 159 /min DO Cisco Furlong Work Phone: [facility] 01-30-2024 00:30-0400 Respiratory rate 22 /min DO Cisco Furlong Work Phone: [facility] 01-30-2024 00:30-0400 SaO2% (BldA) [Mass fraction] 97 % DO Cisco Furlong Work Phone: [facility] 01-29-2024 23:38-0400 Diastolic blood pressure 95 mm[Hg] DO Cisco Furlong Work Phone: [facility] 01-29-2024 23:38-0400 Systolic blood pressure 136 mm[Hg] DO Cisco Furlong Work Phone: [facility] 01-29-2024 22:45-0400 Body height 172.72 cm DO Cisco Furlong Work Phone: [facility] 01-29-2024 22:45-0400 Body weight 86.2 kg DO Cisco Furlong Work Phone: [facility] 01-29-2024 22:44-0400 Body temperature 98.3 [degF] DO Cisco Bonilla Work Phone: [facility] 12-09-2023 08:47-0400 Body height 172.7 cm Michelle Francis DISC RULER OPERATOR-SENIOR STRATEGY MANAGER Work Phone: [facility] 12-09-2023 08:47-0400 Body mass index (BMI) [Ratio] 30.08 kg/m2 Michelle Tito DISC RULER OPERATOR-SENIOR STRATEGY MANAGER Work Phone: [facility] 12-09-2023 08:47-0400 Body temperature 98.29 [degF] Michelle Francis DISC RULER OPERATOR-SENIOR STRATEGY MANAGER [facility] 12-09-2023 08:47-0400 Body weight 89.72 kg Michelle Tito DISC RULER OPERATOR-SENIOR STRATEGY MANAGER [facility] 12-09-2023 08:47-0400 Diastolic blood pressure 86 mm[Hg] Michelle Tito DISC RULER OPERATOR-SENIOR STRATEGY MANAGER Work Phone: [facility] 12-09-2023 08:47-0400 Heart rate 82 /min Michelle Tito DISC RULER OPERATOR-SENIOR STRATEGY MANAGER [facility] 12-09-2023 08:47-0400 Respiratory rate 18 /min Michellenisha Francis DISC RULER OPERATOR-SENIOR STRATEGY MANAGER [facility] 12-09-2023 08:47-0400 SaO2% (BldA) [Mass fraction] 96 % Michelle Tito DISC RULER OPERATOR-SENIOR STRATEGY MANAGER Work Phone: [facility] 12-09-2023 08:47-0400 Systolic blood pressure 120 mm[Hg] Michelle Tito DISC RULER OPERATOR-SENIOR STRATEGY MANAGER Work Phone: [facility] 09-01-2021 13:30-0500 Body height 172.72 cm Tawnya Andre Other [employer] Other 09-01-2021 13:30-0500 Body mass index (BMI) [Ratio] 31.93 kg/m2 Tawnya Andre Other [employer] Other 09-01-2021 13:30-0500 Body temperature 97.4 [degF] Tawnya Andre Other [employer] Other 09-01-2021 13:30-0500 Body weight 95.26 kg Tawnya Andre Other [employer] Other 09-01-2021 13:30-0500 Respiratory rate 18 /min Tawnya Andre Other [employer] Other 09-01-2021 13:30-0500 SaO2% (BldA) [Mass fraction] 98 % Tawnya Andre Other [employer] Other 08-11-2021 12:00-0500 Body height 172.72 cm Mary Christine Other [employer] Other 08-11-2021 12:00-0500 Body mass index (BMI) [Ratio] 31.93 kg/m2 Mary Christine Other [employer] Other 08-11-2021 12:00-0500 Body temperature 96.9 [degF] Mary King Other [employer] Other 08-11-2021 12:00-0500 Body weight 95.26 kg Mary Christine Other [employer] Other 08-11-2021 12:00-0500 Respiratory rate 18 /min Marygunner King Other [employer] Other 08-11-2021 12:00-0500 SaO2% (BldA) [Mass fraction] 96 % Mary Christine Other [employer] Other Encounters Encounter Date Encounter Type Care Provider Facility Start: 04-23-2025 End: 04-23-2025 ambulatory Vivian Brady Facility:[facility] Start: 04-23-2025 End: 04-23-2025 Patient encounter procedure Vivian Brady [facility] Start: 04-08-2025 End: 04-08-2025 ambulatory Cisco Bonilla DO Work Phone: [facility] Work Phone: Start: 04-08-2025 End: 04-08-2025 [...] Start: 04-02-2025 End: 04-02-2025 ambulatory LYDIA DUBOISJESSICA Facility:[facility] Start: 03-22-2025 End: 03-27-2025 Refill Cisco Thomason Furlong DO [facility] Comment on above: Anxiety Start: 03-19-2025 End: 03-19-2025 Admission to same day surgery center Ehsan Avina DO -[facility] [place] Start: 03-19-2025 End: 03-19-2025 ambulatory Cisco Furlong DO Work Phone: [facility] Work Phone: Start: 03-18-2025 End: 03-18-2025 Patient encounter procedure Ehsan Avina DO -Pre-Surgical Testing Work Phone: Start: 03-18-2025 End: 03-18-2025 ambulatory Cisco Furlong DO Work Phone: [facility] Work Phone: Start: 03-18-2025 Encounter for preprocedural laboratory examination Ehsan Avina [facility] Start: 03-13-2025 End: 03-13-2025 ambulatory Cisco Furlong DO Work Phone: [facility] Work Phone: Start: 03-13-2025 End: 03-13-2025 Patient encounter procedure Ehsan Avina DO -[facility] Work Phone: Start: 03-13-2025 End: 03-13-2025 Patient encounter procedure Ehsan Avina DO -[facility] Start: 03-13-2025 End: 03-13-2025 ambulatory Cisco Furlong DO Work Phone: [facility] Work Phone: Start: 03-12-2025 Non-patient / Non-visit Ehsan alanis DO -[facility] Work Phone: Start: 03-07-2025 End: [...] Start: 02-28-2025 End: 02-28-2025 ambulatory FELIPE ARIAS Facility:[facility] Start: 02-18-2025 End: 02-18-2025 ambulatory Cisco Bonilla DO Work Phone: [facility] Work Phone: Start: 02-18-2025 End: 02-18-2025 Patient encounter procedure Ehsan Avina DO -[facility] Work Phone: Start: 02-11-2025 End: [...] Start: 01-24-2025 End: 01-24-2025 ambulatory [facility] Start: 01-24-2025 End: 01-24-2025 Patient encounter procedure Vivian Brady [facility] Start: 01-16-2025 End: 01-16-2025 Transcribe Orders Vivian Brady MD Work Phone: Referring Physician Comment on above: Constipation by outl et dysfunction (Primary Dx); Stress-related physiological response affecting medical condition Start: 01-09-2025 End: 01-09-2025 ambulatory Vivian Brady Facility:[facility] Start: 01-09-2025 End: 01-09-2025 Patient encounter procedure Vivian Brady [facility] Start: 12-31-2024 ambulatory Vivian Brady Facilit y:Satish Start: 12-31-2024 End: 12-31-2024 Telephone encounter Linda Marc CMA [facility] [...] Family Medicine Start: 12-10-2024 End: 12-10-2024 ambulatory [facility] Start: 12-10-2024 Encounter for genera l adult medical examination without abnormal findings [facility] Start: 12-10-2024 End: 12-10-2024 Patient encounter status Cisco Bonilla DO Work Phone: [facility] Start: 12-10-2024 End: 12-10-2024 Periodic preventive med est patient 40-64yrs Cisco Bonilla DO Work Phone: [facility] Comment on above: Well adult exam (Marilynn lawson Dx); Anxiety; Overweight; Iron overload; Encounter for screening for malignant neoplasm of prostate; Ex-smoker; Hypogonadism in male; Severe episode of recurrent major depressive disorder, without psychotic features ([facility]); Irritable bowel syndrome with both constipation and diarrhea Start: 12-10-2024 End: 12-10-2024 ambulatory [facility] Start: 12-10-2024 Encounter for genera l adult medical examination without abnormal findings [facility] Start: 11-02-2024 End: 11-02-2024 Orders Only Cisco Bonilla DO Work Phone: [facility] Start: 10-15-2024 End: 10-15-2024 Orders [...] Medicine Comment on above: Irritable bowel synd chaitanay with both constipation and diarrhea (Primary Dx) [...] 05-15-2024 Emergency department patient visit CISCO BONILLA [facility] Start: 04-04-2024 End: 04-10-2024 Telephone encounter Cisco Bonilla DO Work Phone: [facility] Start: 04-03-2024 End: 04-03-2024 Patient encounter procedure Didi X Orzech [facility] Start: 03-16-2024 End: 03-16-2024 Orders Only Cisco Bonilla DO Work Phone: [facility] Start: 03-15-2024 End: 03-15-2024 Office outpatient visit 25 minutes Cisco Bonilla DO Work Phone: [facility] Comment on above: Irritable bowel synd chaitnaya with both constipation and diarrhea (Primary Dx); Umbilical hernia without obstruction and without gangrene; Incisional hernia, without obstruction or gangrene; Anal fissure Start: 03-15-2024 End: 03-15-2024 ambulatory CISCOCHELSEA BONILLA [facility] Start: 03-14-2024 End: 03-14-2024 Orders Only Cisoc Bonlila DO Work Phone: [facility] Start: 03-03-2024 End: 03-03-2024 Emergency department patient visit DO Cisco Bonilla Work Phone: [facility] Work Phone: Start: 02-20-2024 End: 02-20-2024 Orders Only Cisco Bonilla DO Work Phone: [facility] Start: 02-17-2024 End: 02-18-2024 Evaluation and management of inpatient JENNYFER AUGUSTIN [facility] Start: 02-13-2024 End: 02-15-2024 Telephone [...] procedure Didi X Orzech [facility] Start: 01-31-2024 End: 02-01-2024 Telephone encounter Barbara De La Torre CMA [facility] Start: 01-29-2024 End: 01-30-2024 Emergency department patient visit DO Cisco Carrillong Work Phone: [facility] Work Phone: Start: 12-09-2023 End: 12-09-2023 Office outpatient visit 15 minutes Michelle Francis DISC RULER OPERATOR-[facility] Work Phone: [facility] Comment on above: Irritable bowel synd chaitanya with constipation (Primary Dx); Gastroesophageal reflux disease, unspecified whether esophagitis present; 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 ([facility]) Start: 03-26-2022 End: 03-26-[address] CISCO BONILLA Facility: Start: 09-01-2021 End: 09-01-2021 ambulatory Tawnya Andre Other [employer] Other Start: 09-01-2021 Office outpatient vi sit 15 minutes Tawnya Andre [facility] Start: 08-11-2021 End: 08-11-2021 ambulatory Mary King Other [employer] Other Start: 08-11-2021 Office outpatient vi sit 15 minutes Mary King [facility] Start: 08-30-2016 End: 08-31-2016 Ambulatory GRADY DHALIWAL Facility:[facility] Procedures Date Procedure Procedure Detail Performing Clinician Start: 03-19-2025 Open reduction of fr acture with internal fixation Cisco Carcamolong DO Work Phone: Start: 03-19-2025 X-ray of right foot Den nis Furlong DO Work Phone: Start: 03-13-2025 X-ray of right foot Den nis Furlong DO Work Phone: Start: 02-28-2025 [facility]ULT [facility] Violette Maurer DISC RULER OPERATOR.SENIOR STRATEGY MANAGER Work Phone: Start: 12-10-2024 Adult depression scr [...] Adult depression scr eening assessment Michelle Francis DISC RULER OPERATOR-SENIOR STRATEGY MANAGER Work Phone: Append[facility] [employer] Colonoscopy [employer] Plan of Treatment Date Care Activity Detail Author Start: 02-16-2034 Screening for malign ant neoplasm of colon Colonoscopy [facility] Start: 12-10-2029 Lipid panel Lipid Screening [facility] Start: 12-10-2029 Prostate specific antigen measurement Prostate Cancer Screening Discussion [facility] Start: 12-11-2027 Diabetes Screening Diabetes Screenin g [facility] Start: 12-10-2025 Administration of varicella zoster vaccine Zoster (Shingles) Vaccine (1 of 2) [facility] Comment on above: Postponed from 09/04 (Patient Refused) Start: 12-10-2025 Adult BMI Screening Adult BMI Screen ing [facility] Start: 12-10-2025 COVID-19 Vaccine ( season) COVID-19 Vaccine () [facility] Comment on above: Postponed from 04/22 (Patient Refused) Start: 12-10-2025 Depression Screening Depression Scre ening [facility] Start: 12-10-2025 Tobacco Screening Tobacco Screening [facility] Start: 09-11-2025 Adult BMI Screening Adult BMI Screen ing [facility] Start: 09-11-2025 Tobacco Screening Tobacco Screening [facility] Start: 04-22-2025 Influenza vaccination P [facility] Start: 04-02-2025 End: 04-02-2025 Admission to same day surgery center 04/02/2025 11:30 AM EDT [facility] Colorectal Surgery [address] [id number] Lydia Drake PA-C [address] [place] [address] f/u Colorectal Surgery Comment on above: f/u Start: 03-28-2025 End: 03-28-2025 Patient encounter procedure 03/28/2025 1:30 PM EDT OT/PT/Speech Visit [facility] [id number] [id number] Belkys Smith, PT, DPT tightness in my rectum, anus i cant push out poop [facility] Comment on above: tightness in my rect um, anus i cant push out poop Start: 03-19-2025 [facility] Start: 03-19-2025 X-ray of right foot XR foot RT 2V [facility] Start: 03-19-2025 XR Foot - right 2 Views [facility] Start: 03-18-2025 [facility] Start: 03-15-2025 End: 03-15-2025 Admission to same day surgery center 03/15/2025 4:30 PM EDT [facility] Colorectal Surgery [address] [address] George Navarrete DO [address] [place] [address] [facility] Colorectal Surgery Comment on above: [facility] Start: 03-15-2025 Adult BMI Screening Adult BMI Screen ing [facility] Start: 03-15-2025 Depression Screening Depression Scre ening [facility] Start: 03-15-2025 Tobacco Screening Tobacco Screening [facility] Start: 03-13-2025 X-ray of right foot XR foot RT min 3 V* [facility] Start: 03-13-2025 XR Foot - right GE 3 Views [facility] Start: 02-21-2025 End: 02-21-2025 Patient encounter procedure 02/21/2025 10:30 AM EDT Office Visit General Surgery [address] [address] Jey Kapadia MD [address] [place] [address] Consult Botox Injection General Surgery Comment on above: Consult Botox Inject ion Start: 02-16-2025 Adult BMI Screening Adult BMI Screen ing [facility] Start: 02-16-2025 Screening for malign ant neoplasm of colon [facility] Start: 02-16-2025 Tobacco Screening Tobacco Screening [facility] Start: 02-05-2025 Tobacco Screening Tobacco Screening [facility] Start: 12-10-2024 End: 12-10-2025 CT Chest for screening WO contrast CT low dose lung screening (Annual) Imaging Routine Ex-smoker Expected: 12/10/2024, Expires: 12/10/2025 [facility] Comment on above: Expected: 12/10/2024 , Expires: 12/10/2025 Start: 12-10-2024 End: 12-10-2024 Patient encounter procedure 12/10/2024 1:00 PM EDT [facility] [address] [place] [address] Cisco Bonilla DO [address], [place] [address] [facility] Start: 12-08-2024 Adult BMI Screening Adult BMI Screen ing [facility] Start: 12-08-2024 Depression Screening Depression Scre ening [facility] Start: 12-08-2024 Tobacco Screening Tobacco Screening [facility] Start: 09-26-2024 End: 09-26-2024 Patient encounter procedure 09/26/2024 2:00 PM EST Office Visit [facility] [address] [place] [address] Aníbal Will, DO [address] [facility] [place] [place] [address] [facility] Start: 06-04-2024 End: 06-04-2024 Patient encounter procedure 06/04/2024 2:15 PM EDT Office Visit [facility] [address] [place] [address] Cisco Bonilla DO [address] [place] [address] [facility] Start: 04-22-2024 Covid-19 Vaccine ( season) Covid-19 Vaccine ( season) [facility] Start: 04-22-2024 COVID-19 Vaccine ( season) COVID-19 Vaccine ( season) [facility] Start: 04-22-2024 Influenza vaccination Influenza Vacc ine [facility] Start: 03-15-2024 End: 03-15-2024 Patient encounter procedure 03/15/2024 3:45 PM EDT Office Visit [facility] [address] [place] [address] Cisco Bonilla DO [address], [place] [address] [facility] Start: 02-18-2024 Adult BMI Screening Adult BMI Screen ing [facility] Start: 02-18-2024 Depression Screening Depression Scre ening [facility] Start: 02-18-2024 Tobacco Screening Tobacco Screening [facility] Start: 02-17-2024 End: 02-17-2024 Admission to same day surgery center 02/17/2024 2:30 PM EDT - 02/17/2024 3:30 PM EDT Surgery [facility] - Endoscopy [address] [place] [id number] Jennyfer Augustin, DO [address] [place] [address] COLONOSCOPY DIAGNOSTIC / SCREENING [08258 (CPT )] [facility] Comment on above: COLONOSCOPY DIAGNOST IC / SCREENING [51294 (CPT )] Start: 02-17-2024 End: 02-17-2024 Colonoscopy flx dx w/collj spec when pfrmd COLONOSCOPY DIAGNOSTIC / SCREENING change in bowel habits 02/17/2024 2:30 PM EDT [facility] Start: 02-17-2024 Subsequent hospital visit by physician 02/17/2024 2:30 PM EDT Hospital Encounter [facility] [address] [place] [id number] Jennyfer Augustin, DO [address] [place] [address] Change in bowel habits (Primary Dx) [facility] Comment on above: Change in bowel habi ts (Primary Dx) Start: 02-16-2024 End: 02-16-2024 ambulatory 02/16/2024 3:50 PM EDT Support Visit [facility] - Pre Admit [address] [place] [id number] [facility] Pre Admit Start: 01-29-2024 CT Abdomen and Pelvi s WO contrast [facility] Start: 01-29-2024 CT of abdomen and pe lvis without contrast CT abdomen pelvis wo con [facility] Start: 10-28-2023 DTaP,Tdap and Td Vaccines (2 - Td or Tdap) DTaP,Tdap and Td Vaccines (2 - Td or Tdap) [facility] Start: 10-28-2023 Urine microalbumin profile DTaP,Tdap,Td Vaccine (2 - Td or Tdap) [facility] Start: 04-22-2023 COVID-19 Vaccine ( season) COVID-19 Vaccine ( season) [facility] Start: 2018 Administration of varicella zoster vaccine Zoster (Shingles) Vaccine (1 of 2) [facility] Start: 2018 Pneumococcal Vaccine : 50+ (1 of 1 - PCV) Pneumococcal Vaccine: 50+ (1 of 1 - PCV) [facility] Start: 2018 Shingrix Vaccine (1 of 2) Shingrix Vaccine (1 of 2) [facility] Start: 2013 Diabetes Screening Diabetes Screenin g [facility] Start: 2013 Prostate specific antigen measurement Prostate Cancer Screening Discussion [facility] Start: 2013 Screening for malign ant neoplasm of colon [facility] Start: 2003 Lipid panel Lipid Screening [facility] Start: 1987 Hepatitis B Vaccine (1 of 3 - 19+ 3-dose series) Hepatitis B Vaccine (1 of 3 - 19+ 3-dose series) [facility] Start: 1987 Pneumococcal Vaccine : 50+ (1 of 2 - PCV) Pneumococcal Vaccine: 50+ (1 of 2 - PCV) [facility] Start: 1987 Shingrix Vaccine (1 of 2) Shingrix Vaccine (1 of 2) [facility] Start: 1987 Urine microalbumin profile DTaP,Tdap,Td Vaccine (1 - Tdap) [facility] Start: 1986 Adult BMI Follow Up Plan Adult BMI Follow Up Plan [facility] Start: 1986 Anxiety Screening Anxiety Screening [facility] Start: 1986 Depression Screening Depression Scre ening [facility] Start: 1986 Hepatitis C screening Hepatitis C Sc juan josé [facility] Start: 1986 HIV screening HIV Screening [facility] End: 09-11-2025 CBC panel - Blood by Automated count CBC Lab Routine Irritable bowel syndrome with both constipation and diarrhea Essential hypertension, benign 1 Occurrences starting 09/11/2024 until 09/11/2025 [facility] Comment on above: 1 Occurrences starti ng 09/11/2024 until 09/11/2025 End: 12-10-2025 CBC panel - Blood by Automated count CBC without diff Lab Routine Hypogonadism in male 1 Occurrences starting 12/10/2024 until 12/10/2025 [facility] Comment on above: 1 Occurrences starti ng 12/10/2024 until 12/10/2025 End: 02-04-2025 Colonoscopy Colonoscopy GI Routine Change in bowel habits Polyp of colon, unspecified part of colon, unspecified type 1 Occurrences starting 02/05/2024 until 02/04/2025 [employer] Work Phone: Comment on above: 1 Occurrences starti ng 02/05/2024 until 02/04/2025 Colonoscopy flx dx w/collj spec when pfrmd COLONOSCOPY DIAGNOSTIC / SCREENING Change in bowel habits [facility] End: 09-11-2025 Comprehensive metabolic 2000 panel - Serum or Plasma Comprehensive metabolic panel Lab Routine Essential hypertension, benign 1 Occurrences starting 09/11/2024 until 09/11/2025 [facility] Comment on above: 1 Occurrences starti ng 09/11/2024 until 09/11/2025 End: 12-10-2025 Comprehensive metabolic 2000 panel - Serum or Plasma Comprehensive metabolic panel Lab Routine Well adult exam 1 Occurrences starting 12/10/2024 until 12/10/2025 [employer] Work Phone: Comment on above: 1 Occurrences starti ng 12/10/2024 until 12/10/2025 End: 12-10-2025 Iron [Mass/volume] in Serum or Plasma Iron level Lab Routine Iron overload 1 Occurrences starting 12/10/2024 until 12/10/2025 [facility] Comment on above: 1 Occurrences starti ng 12/10/2024 until 12/10/2025 End: 12-10-2025 Lipid 1996 panel - Serum or Plasma Lipid profile Lab Routine Well adult exam 1 Occurrences starting 12/10/2024 until 12/10/2025 [facility] Comment on above: 1 Occurrences starti ng 12/10/2024 until 12/10/2025 Patient Education [facility] Work Phone: Patient referral [facility] Work Phone: End: 09-11-2025 Prostatic specific antigen screen Prostatic specific antigen screen Lab Routine Encounter for screening for malignant neoplasm of prostate 1 Occurrences starting 09/11/2024 until 09/11/2025 [facility] Comment on above: 1 Occurrences starti ng 09/11/2024 until 09/11/2025 End: 12-10-2025 Prostatic specific antigen screen Prostatic specific antigen screen Lab Routine Encounter for screening for malignant neoplasm of prostate 1 Occurrences starting 12/10/2024 until 12/10/2025 [facility] Comment on above: 1 Occurrences starti ng 12/10/2024 until 12/10/2025 End: 09-11-2025 TSH with Reflex TSH with Reflex Lab Routine Irritable bowel syndrome with both constipation and diarrhea Essential hypertension, benign Anxiety 1 Occurrences starting 09/11/2024 until 09/11/2025 [employer] Work Phone: Comment on above: 1 Occurrences starti ng 09/11/2024 until 09/11/2025 End: 12-10-2025 TSH with Reflex TSH with Reflex Lab Routine Anxiety Overweight 1 Occurrences starting 12/10/2024 until 12/10/2025 [facility] Comment on above: 1 Occurrences starti ng 12/10/2024 until 12/10/2025 XR Foot - right GE 3 Views [facility] Immunizations Immunization Date Immunization Notes Care Provider Fa cili 06-20-2021 influenza virus vaccine, unspecified formulation Michelle Francis DISC RULER OPERATOR-SENIOR STRATEGY MANAGER Work Phone: [facility] 06-20-2021 influenza, injectabl e, quadrivalent, preservative free Michelle Francis DISC RULER OPERATOR-SENIOR STRATEGY MANAGER Work Phone: [facility] 06-20-2021 SARS-CoV-2 (COVID-19 ) mRNA BNT-162b2 vax Didi Orzech [facility] 12-08-2020 SARS-CoV-2 (COVID-19 ) mRNA BNT-162b2 vax Didi Orzech [facility] 11-18-2020 SARS-CoV-2 (COVID-19 ) mRNA BNT-162b2 vax Didi Orzech [facility] 04-06-2020 influenza virus vaccine, unspecified formulation Didi Orzech [facility] 04-06-2020 influenza, injectabl e, quadrivalent, preservative free Michelle Tito DISC RULER OPERATOR-SENIOR STRATEGY MANAGER Work Phone: [facility] 06-07-2019 influenza virus vaccine, unspecified formulation Didi Orzech [facility] 06-07-2019 influenza, injectabl e, quadrivalent, preservative free Michelle Tito DISC RULER OPERATOR-SENIOR STRATEGY MANAGER Work Phone: [facility] 10-27-2013 tetanus toxoid, redu brock diphtheria toxoid, and acellular pertussis vaccine, adsorbed Michelle Tito DISC RULER OPERATOR-SENIOR STRATEGY MANAGER Work Phone: [facility] Payers Date Payer Category Payer Self-pay [id number] 2024 Medicaid [id number] 2024 Medicaid [id number] 1968 Unknown [id number] 1968 Unknown [id number] 1968 Unknown [id number] 1968 Unknown [id number] 1968 Unknown [id number] 1968 Unknown [id number] 1968 Unknown [id number] 1968 Unknown [id number] 1968 Unknown [id number] 1970 Unknown [id number] 1970 Unknown [id number] 1970 Unknown [id number] 1961 Private Health Insurance [id number] Medicaid [id number] Unknown [id number] 2.1 [id number] Unknown May BC/BS [id number] Unknown [id number] Unknown [id number] Unknown [id number] Social History Date Type Detail Facility Unknown if ever smoked [employer]Platform Other Start: 09-11-2024 End: 02-28-2025 Sex Assigned At [facility] Start: 07-23-1985 End: 03-03-2024 Tobacco smoking status NHIS Smoker (finding) [facility] Start: 1970 Sex Assigned At Male [facility] Start: 02-02-2024 End: 01-24-2025 Tobacco smoking status Ex-smoker (finding) [facility] Start: 11-11-2015 Tobacco smoking status Never [facility] Start: 07-23-1985 End: 12-20-2018 History of tobacco use Cigarette Smoker [facility] Start: 12-09-2023 End: 02-28-2025 Cigarettes smoked current (pack per day) - Reported 1 [facility] History of tobacco use Passive smoker [facility] Start: 12-09-2023 Tobacco use and exposure Smokeless tobacco non-user [facility] Start: 09-11-2024 End: 12-10-2024 Alcoholic beverage intake Current drinker of alcohol (finding) [facility] Has the [employer], [place], or water [employer] threatened to shut off services in your home in past 12Mo Yes [facility] Are you now , , , , never or living with a partner? Never [facility] How often to you hav e a drink containing alcohol? Monthly or less [facility] How often do you hav e 6 or more drinks on 1 occasion? Less than monthly [facility] How hard is it for y ou to pay for the very basics like food, housing, medical care, and heating Very hard [facility] Do you feel stress - tense, restless, nervous, or anxious, or unable to sleep at night because your mind is troubled all the time - these days [OSQ] Very much [facility] Start: 08-01-2022 Education 14 [facility] Start: 08-04-2022 Tobacco Comment vape, today [facility] Start: 10-12-2019 Alcohol Comment Occasional [facility] Start: 1970 Sex assigned at [facility] Start: 03-27-2015 Sex Male (finding) [facility] How many standard drinks containing alcohol do you have on a typical day? 10 or more [facility] Sexual Orientation [facility] Tobacco smoking stat us [facility] Tobacco smoking consumption unknown [facility] Start: 03-03-2024 End: 03-19-2025 Tobacco smoking status DEIS Smokes tobacco daily (finding) [facility] Start: 03-07-2025 Gender identity Identifies as male gender (finding) [facility] Start: 03-07-2025 Sexual orientation Heterosexual (finding) [facility] Medical Equipment Procedure Code Equipment Code Equipment Origin al Text Equipment Identifier Dates ORIF, fracture, wrist Orthopaedic bone screw (non-sliding) ()[id number] [facility] Start: 03-19-2025 Goals Date Patient Goal Desired Activity /State Personal health goal Comment on above: Formatting of this n ote might be different from the original. Evaluation of progress towards goal: with support from friends and family, patient needs to f[facility] with [facility] Functional Status Date Assessment Result Facility 01-09-2025 Functional Status N/A [facility] 02-02-2024 Functional Status N/A [facility] Clinical Notes 08-11-2021 to 04-03-2025 Lydia Drake PA-C - 04/03/2025 8:29 AM Lydia Watkins PA-C - 04/02/2025 11:30 AM EDTTelephone Encounter - Lydia Drake PA-C - 03/07/2025 1:37 PM EDTPatient Instructions Note Date & Type Note Facility 04-03-2025 Note HNO ID: [id number] Author: LYDIA DRAKE PA-C Service: ? Author Type: Physician Triage Nurse Type: Progress Notes Filed: 04/03/2025 08:41 Note [...] Anticipated surgical procedure: none Lydia Drake PA-C [facility] 04-03-2025 History of Presen t illness [...] Lydia Drake PA-C documented in this encounter [facility] 04-02-2025 History of Presen t illness Narrative COLORECTAL SURGERY VIRTUAL VISIT FOLLOW UP 04/02/2025 I have communicated my name and active licensure. The patient's identity and physical location were verified at the time of this visit. Either the patient or their legal fulfillment representative has been informed of the risks [...] February 28, 2025. He was referred to [facility] for anorectal manometry by Dr. Brady [...] laxatives and stool softeners; consider referral to [facility] if unable to see local GI anymore ( was told that [facility] would be managing him from [...] evaluate and manage orthostatic symptoms. Recording using Game[employer] software for draft documentation of the visit was discussed with the patient/authorized fulfillment representative; all questions welcomed and answered. Patient/authorized fulfillment representative agreed to proceed AJME Segundo I spent a total of 33 minutes on the date of the service which included preparing to see the patient, engn-yh-[id number] patient care, completing clinical documentation, obtaining and/or reviewing separately obtained history, performing a medically appropriate examination, counseling and educating the patient/family/caregiver, communicating with other HCPs (not separately reported), and care coordination (not separately reported). documented in this encounter [facility] 04-02-2025 Note HNO ID: [id number] Author: LYDIA DRAKE PA-C Service: ? Author Type: Physician Triage Nurse Type: Progress Notes Filed: 04/02/2025 12:17 Note Text: COLORECTAL SURGERY VIRTUAL VISIT FOLLOW UP 04/02/2025 I have communicated my name and active licensure. The patient's identity and physical location were verified at the time of this visit. Either the patient or their legal fulfillment representative has been informed of the risks [...] February 28, 2025. He was referred to [facility] for anorectal manometry by Dr. Brady [...] trials of Trulanc (more content not included)... [facility] 03-07-2025 Telephone encounter Note Called patient [...] ED with worsening sx. Lydia Drake PA-C [facility] 03-07-2025 Miscellaneous Notes Called patient back. [...] worsening sx. Lydia Drake PA-C Chai Samuel [phone] Patient contacted the office regarding the baclofen that was prescribed to him. He reported that his back is feeling tighter than before and believes that a taking all these different medications may be causing this side effect. Unsure on what he should do. documented in this encounter [facility] 03-07-2025 Telephone encounter Note Chai Samuel [phone] Patient contacted the office regarding the baclofen that was prescribed to him. He reported that his back is feeling tighter than before and believes that a taking all these different medications may be causing this side effect. Unsure on what he should do. [facility] 02-28-2025 Instructions Lydia Drake PA-C - 02/28/2025 1:31 PM EDT We discussed your chronic constipation and pelvic floor dysfunction: - I recommend starting baclofen suppositories, a muscle relaxer, to help with spasms and pain. Use one suppository as needed, up to twice daily. This prescription has been sent to [facility] [place]. - Begin pelvic floor physical therapy to [...] for you. To make an appointment through [facility] call : [phone] If you are not close to a [facility] location, you can visit any one of these sites. Just put your zip code in and Pelvic Floor Physical Therapy places near you will populate. - [email or web address] - [email or web address] - [email or web address] - [email or web address] documented in this encounter [facility] 02-28-2025 History and physical note PELVIC [...] a compounded preparation from a pharmacy in [place], and previously used hydrocortisone. He has not [...] Weak - Relaxation on pushing: Minimal - Electrician Station Assistant Present: Yes Electrician Station Assistant present: Yes, Arabella Assessment Anorectal Physiology [...] which included preparing to see the patient, plxt-yj-exnc patient care, completing clinical documentation, obtaining and/or reviewing separately obtained history, performing a medically appropriate examination, counseling and educating the patient/family/caregiver, ordering medications, tests, or procedures, communicating with other HCPs (not separately reported), independently interpreting results (not separately reported), and communicating results to the patient/family/caregiver. Recording using GameLogic software for draft documentation of the visit was discussed with the patient/authorized fulfillment representative; all questions welcomed and answered. Patient/authorized fulfillment representative agreed to proceed [facility] 02-28-2025 History and physical note PELVIC [...] a compounded preparation from a pharmacy in [place], and previously used hydrocortisone. He has not [...] Weak - Relaxation on pushing: Minimal - Electrician Station Assistant Present: Yes Electrician Station Assistant present: Yes, Arabella Assessment Anorectal Physiology [...] which included preparing to see the patient, vcsz-hc-[id number] patient care, completing clinical documentation, obtaining and/or reviewing separately obtained history, performing a medically appropriate examination, counseling and educating the patient/family/caregiver, ordering medications, tests, or procedures, communicating with other HCPs (not separately reported), independently interpreting results (not separately reported), and communicating results to the patient/family/caregiver. Recording using GameLog[employer] software for draft documentation of the visit was discussed with the patient/authorized fulfillment representative; all questions welcomed and answered. Patient/authorized fulfillment representative agreed to proceed documented in this encounter [facility] 02-18-2025 Evaluation note Diagnosis Onset Date Resolution Fracture of fifth metatarsal bone of right foot acute February 18, 2025 1:30pm Fracture of fifth metatarsal bone of right foot acute March 13, 2025 3:11pm [facility] Work Phone: 1(756) 970-376206-30-2025 Evaluation note* Diagnosis Onset Date Resolution Status Admit Date Fracture of fifth metatarsal bone of right foot acute February 18 1:30pm Fracture of fifth metatarsal bone of right foot acute March 13 3:11pm Fracture of fifth metatarsal bone of right foot acute April 08, 2025 9:12am Other specified postprocedur al states noneactive April 08 9:12am [facility] Work Phone: 1(437) 166-281906-23-2025 Telephone encounter Note* Telephone Encounter - Chelle Christianson - 02/11/2025 9:38 AM EDT Recevied referral from [facility] fot pt referral for botox injections [facility]06-23-2025 Miscellaneous Notes* Telephone Encounter - Chelle Christianson - 02/11/2025 9:38 AM EDT Recevied referral from [facility] fot pt referral for botox injections [facility] Miscellaneous Notes* Telephone Encounter - Linda Marc CMA - 12/31/2024 9:34 AM EDT I called and left message for pt to call back. Regarding his referral to Gastroenterology. George Alcaraz is retired. * Telephone Encounter - Barbara De La Torre CMA - 12/31/2024 9:34 AM EDT Can we send referral to Dr. Moreno in [place] [facility] Telephone encounter Note* Telephone Encounter - Linda Marc CMA - 12/31/2024 9:34 AM EDT I called and left message for pt to call back. Regarding his referral to Gastroenterology. George Alcaraz is retired. [facility]05-12-2025 Telephone encounter Note* Telephone Encounter - Barbara De La Torre CMA - 12/31/2024 9:34 AM EDT Can we send referral to Dr. Moreno in [place] [facility]04-28-2025 Miscellaneous Notes* Telephone Encounter - Barbara De La Torre CMA - 12/17/2024 3:24 PM EDT Patient called and stated he missed his apt in [place] with jaylyn/ent so they will not see him anymore. Can you refer him to someone else. * Telephone Encounter - Cisco Bonilla DO - 12/17/2024 3:24 PM EDT Okay. I sent another referral this time to a meeting planner in [place] -Dr. Alcaraz. If he can not make [...] usually routine to do. documented in [facility]04-28-[facility] Telephone encounter Note* Telephone Encounter - Barbara De La Torre CMA - 12/17/2024 3:24 PM EDT Patient called and stated he missed his apt in [place] with jaylyn/ent so they will not see him anymore. Can you refer him to someone else. [facility]04-28-2025 Telephone encounter Note* Telephone Encounter - Cisco Bonilla DO - 12/17/2024 3:24 PM EDT Okay. I sent another referral this time to a meeting planner in [place] -Dr. Alcaraz. If he can not make [...] treatment which is usually routine to do. [facility]04-21-2025 History of Present illness Narrative* Cisco [...] reveal any inflammatory bowel disease. Thegastroenterologist in [place] did not want to see him. He [...] appear clear Nose: Nose normal. Mouth/Throat: Lips: [place]. Mouth: Mucous membranes are moist. Dentition: Abnormal [...] and irritable bowel syndrome. documented in [facility]03-14-[facility] History of Present illness Narrative* Cisco Bonilla DO - 11/02/2024 1:58 PM EDT FORM FOR ORGAN ASSEMBLER FILLED OUT documented in this encounterVan [facility]02-05-2025 Miscellaneous Notes* Telephone Encounter - Marisa Reinoso - 09/26/2024 2:19 PM EST New Patient NS 09/26/2024 * Telephone Encounter - Suki Islas RN - 09/26/2024 2:19 PM EST Discharge entered documented in this encounterVan [facility]02-[facility]-2025 Telephone encounter Note* Telephone Encounter - Marisa Reinoso - 09/26/2024 2:19 PM EST New Patient NS 09/26/2024 [facility]02-05-2025 Telephone encounter Note* Telephone Encounter - Suki Islas RN - 09/26/2024 2:19 PM EST Discharge entered [facility]01-22-2025 Miscellaneous Notes* Telephone Encounter - Betty [...] Send a referral to GI specialist at [facility] documented in this encounterVan [facility]25 Telephone encounter Note* Telephone Encounter - Betty Wild - 09/12/2024 2:21 PM EST [facility] office is refusing to see [...] referred him to a specialist [facility] [id number] Telephone encounter Note* Telephone Encounter - Betty Wild - 09/12/2024 2:21 PM EST Can we get this as an urgent referral [facility] [id number] Telephone encounter Note* Telephone Encounter - Cisco Bonilla DO - 09/12/2024 2:21 PM EST Send a referral to GI specialist at [facility] [id number] Miscellaneous Notes* Telephone Encounter - Bettygeorge Wild - 09/12/2024 1:47 PM EST Patient called, metamucil is not covered by insurance but they will cover benifiber 240g [facility] [place] [facility] in [facility] encounterVan [facility]01-22-[facility]25 Telephone encounter Note* Telephone Encounter - Betty Wild - 09/12/2024 1:47 PM EST Patient called, metamucil is not covered by insurance but they will cover benifiber 240g [facility] [place] [facility] [id number] History of Present illness Narrative* Cisco Bonilla [...] have an appointment coming up with a meeting planner in September. He had to cancel his last appointment because he was having diarrhea and was afraid to leave the house because he might have an accident. The ER did give him Bentyl which did help. He did not think that less than helped at all. He stopped the FiberCon because it was not helping. He would rather have Metamucil. He called the meeting planner office and they suggested a cleaned out. [...] Exam Vitals reviewed. Exam conducted with a novelty candy maker present (Leilani Han MS 3). Constitutional: General: [...] mouth in the morning. documented in this encounterVan [facility]08-14-2024 Miscellaneous Notes* Telephone Encounter - Betty Wild - 04/04/2024 10:24 AM EDT ----- Message from Dr. Cisco Bonilla DO sent at 03/15/2024 7:03 PM EDT ----- Regarding: GI/BP recheck Please set up * Telephone Encounter - Betty Wild - 04/04/2024 10:24 AM EDT Mailbox full * Telephone Encounter - Betty Wild - 04/04/2024 10:24 AM EDT Scheduled documented in this encounterVan [facility]08-14-2024 Telephone encounter Note* Telephone Encounter - Betty Wild - 04/04/2024 10:24 AM EDT ----- Message from Dr. Cisco Bonilla DO sent at 03/15/2024 7:03 PM EDT ----- Regarding: GI/BP recheck Please set up [facility]08-14-2024 Telephone encounter Note* Telephone Encounter - Betty Saldanagstock - 04/04/2024 10:24 AM EDT Mailbox full [facility]08-14-2024 Telephone encounter Note* Telephone Encounter - Betty Leseliseokaterine - 04/04/2024 10:24 AM EDT Scheduled [facility]07-25-2024 History of Present illness Narrative* Cisco [...] was getting liquidy stools-6 and 7 on Eight Mile stool scale. He used fiber supplement in [...] mostly liquidy now. He has been to [facility] times. He was given [...] needed for pain (cramping). documented in this encounterVan [facility]06-24-2024 Miscellaneous Notes* Telephone Encounter - Betty [...] GoLYTELY sent to pharmacy documented in this encounterVan [facility]06-24-2024 Telephone encounter Note* Telephone Encounter - Betty Wild - 02/13/2024 12:02 PM EDT Patient said susame is 130 dollars, is there something else he can try or a coupon to use [facility]06-24-2024 Telephone encounter Note* Telephone Encounter - Linda Marc CMA - 02/13/2024 12:02 PM EDT Pt has medicaid My Bad Please SEND in the SUPREP. . [facility]06-24-2024 Telephone encounter Note* Telephone Encounter - Jennyfer Augustin DO - 02/13/2024 12:02 PM EDT Message noted. The only prep that is covered is the old fashioned Golytely prep [facility]06-24-2024 Telephone encounter Note* Telephone Encounter - Gloria Rodriguez CMA - 02/13/2024 12:02 PM EDT He is Medicaid so whatever his insurance covers [facility]06-24-2024 Telephone encounter Note* Telephone Encounter - Jennyfer Augustin DO - 02/13/2024 12:02 PM EDT Message noted. Rx for GoLYTELY sent to pharmacy [facility]06-11-2024 Miscellaneous Notes* Telephone Encounter - Barbara [...] EDT Left message via documented in this encounterVan [facility]06-11-2024 Telephone encounter Note* Telephone Encounter - Barbara De La Torre CMA - 01/31/2024 3:09 PM EDT Patient called and was in the ER for Urinary re tension. His bowel movements ar still not good. Since I can not get him in for an ER follow up soon what do you suggest he do? He does see urology on [facility]06-11-2024 Telephone encounter Note* Telephone Encounter - Cisco Bonilla DO - 01/31/2024 3:09 PM EDT He can use MiraLax 17 g in 8 oz of water daily [facility]06-11-2024 Telephone encounter Note* Telephone Encounter - Barbara De La Torre CMA - 01/31/2024 3:09 PM EDT Left message via [facility]04-19-2024 History of Present illness Narrative* SYLVESTER Levin - 12/09/2023 9:00 AM EDT [address] [facility] [id number] Patient: Chai Arnold Date of : 1970 [...] softeners pencilthin like a 4. On the Eight Mile stool scale and he has tried Metamucil and MiraLax. He denies any hemorrhoids or blood in his stool. His last colonoscopy was 4 years ago that showed polyps and diverticulosis and he knows he is due for another colonoscopy next year. Patient has been struggling with weaning off his Xanax. 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 Past Medical History: Diagnosis Date Anxiety Depression Past Surgical History: Procedure Laterality Date APPENDECTOMY COLONOSCOPY N/A 10/17/2019 Performed by Jennyfer Augustin DO at [facility] DECOMPRESSION FASCIOTOMY LEG 12/24/2015 Current Outpatient [...] whether esophagitis present 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 ([facility]) Other orders - omeprazole (PriLOSEC) 20 mg [...] office. Resources such as [facility] in [place] were given. It was also recommended that he apply at [facility]ending sale to [facility] for primary care services and [...] LEVIN APRN-CNP 12/09/23 1230 documented in this encounterHarrison Community HospitalDayMen [facility] [id number] Evaluation note* Encounter Date Diagnosis Assessment Notes [...] care instructions given in writting by [facility] Care At Home document. thePlatform Other 12-21-2021 Evaluation note* Encounter Date Diagnosis [...] care instructions given in writting by [facility] Care At Home document. [employer]Platform Other Evaluation + Plan note Future Appointments Appointment Date:04/03/2024 01:00:00 PM Scheduled Provider:JOSEPH Allen APRN, Didi Martin Location:[facility] Appointment Type:URO Office Visit [facility] Cammie Evaluation + Plan note Future Appointments Appointment Date:04/11/2025 10:45:00 AM Scheduled Provider:Vivian Brady MD Location:[facility] Digestive Health Appointment Type:[facility] Follow Up [facility] evaluation noteNo assessment information available [facility] Work Phone: evaluation note* Diagnosis Irritable bowel syndrome with both constipation and diarrhea- Primary Essential hypertension, benign Anxiety Anxiety state, unspecified Encounter for screening for malignant neoplasm of prostate documented [facility] this encounter [facility] Diagnosis Irritable bowel syndrome with both constipation and diarrhea- Primary documented in this encounter [facility]* Diagnosis Irritable bowel syndrome with constipation- Primary Irritable bowel syndrome Gastroesophageal reflux disease, unspecified whether esophagitis present 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 ([facility]) documented in this encounter [facility]* Diagnosis Change in bowel habits- Primary Other symptoms involving digestive system Polyp of colon, unspecified part of colon, unspecified type documented in this encounter [facility] SystemEvaluation note* Diagnosis Irritable bowel syndrome with both constipation and diarrhea- Primary Umbilical hernia without obstruction and without gangrene Incisional hernia, without obstruction or gangrene Anal fissure documented in this encounter [facility] Diagnosis Well adult exam- Primary Routine general medical examination at a health care facility Anxiety Anxiety state, unspecified Overweight Iron overload Disorders of iron metabolism Encounter for screening for malignant neoplasm of prostate Ex-smoker Personal history of tobacco use, presenting hazards to health Hypogonadism in male Severe episode of recurrent major depressive disorder, without psychotic features ([facility]) Irritable bowel syndrome with both constipation and diarrhea documented in [facility] Diagnosis Anal fissure- Primary [facility] Diagnosis Irritable bowel syndrome with both constipation and diarrhea- Primary [facility] Diagnosis Chronic idiopathic constipation- Primary Unspecified constipation Hepatitis C virus infection without hepatic coma, unspecified chronicity documented in this encounter [facility] Diagnosis 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 Outlet dysfunction constipation Stress-related physiological response affecting medical condition Psychic factors associated with diseases classified elsewhere [facility] this encounter [facility] Diagnosis Onset Date Resolution Status Admit Date Fracture of fifth metatarsal bone of right foot acute February 18, 2025 1:30pm [facility] Work Phone: Evaluation note* Diagnosis Pelvic floor dysfunction Pelvic muscle wasting Pelvic floor dysfunction- Primary Pelvic muscle wasting Rectal spasm Anal spasm Constipation, unspecified constipation type documented in this encounter [facility] Diagnosis Pelvic floor dysfunction- Primary Pelvic muscle wasting Rectal spasm Anal spasm Constipation, unspecified constipation type documented [facility] this encounter [facility] Diagnosis Anxiety Anxiety state, unspecified documented [facility] this encounter [facility] Diagnosis Constipation, unspecified constipation type- Primary Rectal spasm Anal spasm Pelvic floor dysfunction Pelvic muscle wasting Anxiety Anxiety state, unspecified Distressed about housing issues Other specified housing or economic circumstances Orthostatic dizziness documented in this encounter [facility] note* Diagnosis Rectal spasm- Primary Anal spasm Constipation, unspecified constipation type Pelvic floor dysfunction Pelvic muscle wasting Anxiety Anxiety state, unspecified Chronic abdominal pain Abdominal pain, unspecified site Chronic rectal pain Anal or rectal pain documented in this encounter [facility] general Narrative - Reported* Type Description Date Medical History insomnia Medical History anxiety Medical History HTN Surgical History appendix removed Surgical History compartment syndrome left hand 2016 Hospitalization History see surgical hx thePlatform Other Hospital course Narrative No data available for this section [facility] Discharge instructions Additional Instructions Wear leg bag with [place] catheter Follow-up with urology [facility] are [facility] Work Phone: Hospital Discharge instructions No data available for this section [facility] Hospital Discharge instructions Additional Instructions [...] wearing your boot. You may take NSAIDs/Tylenol [id number] as indicated on the bottle. You should [...] be scheduled with Dr. Avina's office at [facility]. At your follow-up we will remove your splint and sutures. Please call to confirm your follow-up appointment. Dr. Ehsan Avina [facility] [address] [place] [address] [facility] Work Phone: Instructions* Attachments The following attachments cannot be sent through Care Everywhere. * IBS Diet (Arabic) documented in this encounterProTagCash Health SystemInstructionsNot on file documented in this encounterProOhiohealth Mansfield HospitalCerteon SystemInstructionsNot on file documented in this encounterProOhiohealth Mansfield HospitalDayMen U.S Health SystemInstructionsNot on file documented in this encounterProTagCash Health SystemInstructionsNot on file documented in this encounterProTagCash Health SystemInstructionsNot on file documented in this encounterProOhiohealth Mansfield HospitalDayMen U.S Health SystemInstructionsNot on file documented in this encounterProOhiohealth Mansfield HospitalCerteon SystemInstructionsNot on file documented in this encounterProOhiohealth Mansfield HospitalDayMen U.S Health SystemInstructionsNot on file documented in this encounterProOhiohealth Mansfield HospitalDayMen U.S Health SystemInstructionsNot on file documented in this encounterProOhiohealth Mansfield HospitalCerteon SystemInstructionsNot on file documented in this encounterProMedica Health SystemInstructionsNot on file documented in this encounterProMedica Health SystemInstructionsNot on file documented in this encounterProMedica Health SystemInstructionsNot on file documented in this encounterProOhiohealth Mansfield Hospitalca Health SystemProgress note No data available for this section [facility] Reason for referral (narrative)* Medication Prior Authorization - Pending Review Specialty Diagnoses / Procedures Referred By Contac t Referred To Contact Cisco Bonilla DO [address] [facility] [place] [address] Phone: tel: fax: Referral ID Status Reason Start Date Expiration Date V isits Requested Visits Authorized [id number] Pending Review 1 1 [facility] System[facility] for referral (narrative)* Medication Prior Authorization - Pending Review Specialty Diagnoses / Procedures Referred By Contac t Referred To Contact Cisco Bonilla DO [address] [facility] [place] [place] [address] Phone: tel: fax: Referral ID Status Reason Start Date Expiration Date V isits Requested Visits Authorized [id number] Pending Review 1 1 [facility] System[facility] for referral (narrative)* Medication Prior Authorization - Pending Review Specialty Diagnoses / Procedures Referred By Contac t Referred To Contact Cisco Bonilla DO [address] [facility] [place] [place] [address] Phone: tel: fax: Referral ID Status Reason Start Date Expiration Date V isits Requested Visits Authorized [id number] Pending Review 1 1 [facility] SystemReason for referral (narrative)No reason for referral information availableAult[facility] Work Phone: Summary Purpose Family History [...] Cisco Bonilla, [address] [facility] [place] [address] Referral ID Status Reason Start Date Expiration Date V isits Requested Visits Authorized [id number] Pending Review 03/14/2024 03/14/2025 1 1 Specialty Diagnoses / Procedures Referred By Contac t Referred To Contact Diagnoses Change in bowel habits Polyp of colon, unspecified part of colon, unspecified type Procedures Colonoscopy Cisco Bonilla, DO [address] [place] [address] Referral ID Status Reason Start Date Expiration Date V isits Requested Visits Authorized [id number] Pending Review 02/05/2024 02/04/2025 1 1 Additional Source Comments (unrecognized sect ion and content) No Status Records FoundNo Status Records FoundNo Status Records FoundNo Status Records FoundNo Status Records FoundNo Status Records FoundNo Status Records FoundNo Status Records Found INFORMATION SOURCE (unrecogn ized section and content) DATE CREATED AUTHOR 02/14/2018 [facility] DATE CREATED AUTHOR AUTHOR'S ORGANIZ ATION 03/29/2022 [facility] DATE CREATED AUTHOR AUTHOR'S ORGANIZ ATION 05/18/2024 [facility] DATE CREATED AUTHOR AUTHOR'S ORGANIZ ATION 12/10/2024 [facility] DATE CREATED AUTHOR AUTHOR'S ORGANIZ ATION 12/11/2024 [facility] DATE CREATED AUTHOR AUTHOR'S ORGANIZ ATION 03/31/2025 [facility] DATE CREATED AUTHOR AUTHOR'S ORGANIZ ATION 04/03/2025 [facility] DATE CREATED AUTHOR AUTHOR'S ORGANIZ ATION 04/25/2025 [facility] REASON FOR VISIT (unrecogniz ed section and [...] INSTITUTE Diagnoses Pelvic floor dysfunction Procedures ADULT [place] ANORECTAL MANOMETRY ANORECTAL MANOMETRY Violette Maurer APRN.SENIOR STRATEGY MANAGER [address] [place] [address] Phone: tel: fax: [facility] [address] [place] [address] Referral ID Status Reason Start Date Expiration Date V isits Requested Visits Authorized [id number] Closed Auto-Generate d Referral 02/21/2025 08/21/2025 1 1 Reason Comments New Patient Pelvic floor dysfunc tion Specialty Diagnoses / Procedures Referred By Contac t Referred To Contact [facility] Diagnoses Pelvic floor dysfunction Procedures ADULT [place] ANORECTAL MANOMETRY ANORECTAL MANOMETRY Violette Maurer APRN.SENIOR STRATEGY MANAGER [address] [place] [place] [address] Phone: tel: fax: [facility] [address] [place] [address] Referral ID Status Reason Start Date Expiration Date V isits Requested Visits Authorized [id number] Closed Auto-Generate d Referral 02/21/2025 08/21/2025 1 [...] March 03, 2024 End: March 03, 2024 Pleating Supervisor Relationship Specialty Start Date End Date Cisco Bonilla DO [address], [place] [address] PCP - General Family Medicine 12/19/19 Pleating Supervisor Relationship Specialty Start Date End Date Cisco Bonilla DO [address], [place] [address] PCP - General Family Medicine 12/19/19 Pleating Supervisor Relationship Specialty Start Date End Date Cisco Bonilla DO [address], [facility] [place] [address] PCP - General Family Medicine 12/19/19 Pleating Supervisor Relationship Specialty Start Date End Date Cisco Bonilla DO [address], [place] [address] PCP - General Family Medicine 12/19/19 Pleating Supervisor Relationship Specialty Start Date End Date Cisco Bonilla DO [address] [place] [address] PCP - General Family Medicine 12/19/19 Pleating Supervisor Relationship Specialty Start Date End Date Cisco Bonilla DO [address], [place] [address] PCP - General Family Medicine 12/19/19 Pleating Supervisor Relationship Specialty Start Date End Date Cisco Bonilla DO [address], [place] [address] PCP - General Family Medicine 12/19/19 Pleating Supervisor Relationship Specialty Start Date End Date Cisco Bonilla DO [address], [place] [address] PCP - General Family Medicine 12/19/19 Pleating Supervisor Relationship Specialty Start Date End Date Cisco Bonilla DO [address] [place] [address] PCP - General Family Medicine 12/19/19 Pleating Supervisor Relationship Specialty Start Date End Date Cisco Bonilla DO [address] [place] [address] PCP - General Family Medicine 12/19/19 Pleating Supervisor Relationship Specialty Start Date End Date Carlos AlbertolindenCisco cao DO [address] [place] [address] PCP - General Family Medicine 12/19/19 Pleating Supervisor Relationship Specialty Start Date End Date Cisco Bonilla DO [address] [place] [address] PCP - General Family Medicine 12/19/19 Pleating Supervisor Relationship Specialty Start Date End Date Carlos AlbertolindenCisco cao DO [address] [place] [address] PCP - General Family Medicine 12/19/19 Pleating Supervisor Relationship Specialty Start Date End Date Carlos AlbertolindenCisco cao DO [address] [place] [address] PCP - General Family Medicine 12/19/19 Pleating Supervisor Relationship Specialty Start Date End Date Cisco Bonilla DO [address] [place] [address] PCP - General Family Medicine 12/19/19 Pleating Supervisor Relationship Specialty Start Date End Date Cisco Bonilla DO [address] [place] [address] PCP - General Family Medicine 12/19/19 Pleating Supervisor Relationship Specialty Start Date End Date Carlos AlbertolindenCisco cao DO [address] [place] [address] PCP - General Family Medicine 12/19/19 Pleating Supervisor Relationship Specialty Start Date End Date Cisco Bonilla DO [address], [place] [address] PCP - General Family Medicine 12/19/19 Pleating Supervisor Relationship Specialty Start Date End Date Tyson Tolliver MD PCP - General Family Medicine 11/11/15 Vivian Brady MD [address] [place] [address] Gastroenterology 01/16/25 Pleating Supervisor Relationship Specialty Start Date End Date Cisco Bonilla DO [address] [place] [address] PCP - General Family Medicine 12/19/19 Pleating Supervisor Relationship Specialty Start Date End Date Tyson Tolliver MD PCP - General Family Medicine 11/11/15 Vivian Brady MD [address] [address] Gastroenterology 01/16/25 Team Status: Inactive Member Role Status Dates Cisco Bonilla DO Primary Care Provider Active Start: February 18, 2025 End: February 18, 2025 Ehsan Avina DO Attending Provider Active S tart: February 18, 2025 End: February 18, 2025 Pleating Supervisor Relationship Specialty Start Date End Date Tyson Tolliver MD PCP - General Family Medicine 11/11/15 Vivian Brady MD [address] [address] Gastroenterology 01/16/25 Pleating Supervisor Relationship Specialty Start Date End Date Tyson Tolliver MD PCP - General Family Medicine 11/11/15 Vivian Brady MD [address] [address] Gastroenterology 01/16/25 Pleating Supervisor Relationship Specialty Start Date End Date Tyson Tolliver MD PCP - General Family Medicine 11/11/15 Vivian Brady MD [address] [address] Gastroenterology 01/16/25 Pleating Supervisor Relationship Specialty Start Date End Date Tyson Tolliver MD PCP - General Family Medicine 11/11/15 Vivian Brady MD [address] [address] Gastroenterology 01/16/25 Team Status: Active Member Role [...] March 19, 2025 End: March 19, 2025 Pleating Supervisor Relationship Specialty Start Date End Date Cisco Bonilla DO [address] [facility] [place] [address] PCP - General Family Medicine 12/19/19 Pleating Supervisor Relationship Specialty Start Date End Date Tyson Tolliver MD PCP - General Family Medicine 11/11/15 Vivian Brady MD [address] [address] Gastroenterology 01/16/25 Pleating Supervisor Relationship Specialty Start Date End Date Tyson Tolliver MD PCP - General Family Medicine 11/11/15 Vivian Brady MD [address] [facility] [address] [address] Gastroenterology 01/16/25 Pleating Supervisor Relationship Specialty Start Date End Date Tyson Tolliver MD PCP - General Family Medicine 11/11/15 Vivian Brady MD [address] [place] [id number] Gastroenterology 01/16/25 Team Status: Inactive Member Role [...] or prosecute any alcohol or drug abuse patient.[facility] HospitalIn the event this information is protected by the Federal Confidentiality of Alcohol and Drug Abuse Patient Records regulations: The Federal rules restrict any use of the information to criminally investigate or prosecute any alcohol or drug abuse patient.[facility] HospitalIn the event this information is protected by the Federal Confidentiality of Alcohol and Drug Abuse Patient Records regulations: The Federal rules restrict any use of the information to criminally investigate or prosecute any alcohol or drug abuse patient.[facility] HospitalIn the event this information is protected by the Federal Confidentiality of Alcohol and Drug Abuse Patient Records regulations: The Federal rules restrict any use of the information to criminally investigate or prosecute any alcohol or drug abuse patient.[facility] HospitalIn the event this information is protected by the Federal Confidentiality of Alcohol and Drug Abuse Patient Records regulations: The Federal rules restrict any use of the information to criminally investigate or prosecute any alcohol or drug abuse patient.[facility] HospitalIn the event this information is protected by the Federal Confidentiality of Alcohol and Drug Abuse Patient Records regulations: The Federal rules restrict any use of the information to criminally investigate or prosecute any alcohol or drug abuse patient.[facility] HospitalIn the event this information is protected by the Federal Confidentiality of Alcohol and Drug Abuse Patient Records regulations: The Federal rules restrict any use of the information to criminally investigate or prosecute any alcohol or drug abuse patient.[facility] HospitalIn the event this information is protected by the Federal Confidentiality of Alcohol and Drug Abuse Patient Records regulations: The Federal rules restrict any use of the information to criminally investigate or prosecute any alcohol or drug abuse patient.[facility] HospitalIn the event this information is protected by the Federal Confidentiality of Alcohol and Drug Abuse Patient Records regulations: The Federal rules restrict any use of the information to criminally investigate or prosecute any alcohol or drug abuse patient.[facility] FOR RECORDS PERTAINING TO PATIENTS WHO [...] BE BASED ON THE PRIMARY CLINICAL RECORDS. [employer] [facility]. provides no warranty or guarantee of the accuracy or completeness of information in this document.
[2025-05-09 10:07] VITALS: BP 184/107; PULSE 97; TEMP 36.8; O2SAT 99; BMI 25.8
[2025-05-09] MEDS: LIDOCAINE 2% JELLY 10 ML UR (10:26)
[2025-05-09 10:39] LABS: Hematocrit 41.9 % (42.0-54.0); Hemoglobin 15.1 g/dL (14.0-18.0); Immature Granulocytes Abs Auto 0.03 10^3/uL (0.00-0.03); Immature Granulocytes Pct Auto 0.3 % (0.0-0.5); Lymphocytes Absolute Auto 1.5 10^3/uL (1.2-3.8); Mean Corpuscular HGB Conc 36.0 g/dL (29.9-35.2); Mean Corpuscular Hemoglobin 32.7 pg (25.9-34.0); Mean Corpuscular Volume 90.7 fL (80.0-94.0); Platelet Count 209 10^3/uL (150-450); Red Blood Count 4.62 10^6/uL (4.70-6.10); White Blood Count 9.4 10^3/uL (4.0-11.0)
[2025-05-09 10:40] LABS: Glucose Urine UA NEGATIVE (NEGATIVE)
--- NOTE | 2025-05-09 10:41 | ED.GENADUL1 ---
HPI HPI - General Adult General Chief complaint: Urogenital-Male Stated complaint: back pain Time Seen by Provider: 05/09/25 10:06 Source: patient Mode of arrival: ambulance Limitations: no limitations History of Present Illness HPI narrative: 54-year-old male presents to the emergency department for rectal pressure and trouble urinating. He was seen here few days ago and diagnosed with diverticulitis. Subsequently came back with urinary retention and then insisted a few hours ago at a visit to this emergency department that his catheter be removed. Related Data Previous Rx's ?Medication ?Instructions ?Recorded ondansetron 4 mg disintegrating 4 mg PO Q6H PRN nausea and 05/06/24 tablet vomiting #12 tabs dicyclomine 20 mg tablet 20 mg PO QID PRN abdominal pain 09/05/24 #12 tabs hydrocodone 5 mg-acetaminophen 325 1 tab PO Q6H PRN pain 3 days #12 02/14/25 mg tablet tabs ciprofloxacin HCl 500 mg tablet 500 mg PO Q12H #20 tabs 05/07/25 (Cipro) hydrocodone 5 mg-acetaminophen 325 1 tab PO Q6H PRN pain 5 days #20 05/07/25 mg tablet tabs metronidazole 500 mg tablet 500 mg PO TID #30 tabs 05/07/25 ondansetron 4 mg disintegrating 4 mg PO Q6H PRN nausea and 05/07/25 tablet vomiting #20 tabs Allergies Allergy/AdvReac Type Severity Reaction Status Date / Time No Known Drug Allergies Allergy Verified 05/09/25 10:00 Opioid HPI Opioid Management Most Recent Opioid Data: Last Pain Scale 8 05/08/25, 05:33 Last MAR Pain Assessment 05/08/25, 01:29 Ur Phencyclidine Scrn, (NEGATIVE) Negative 05/06/24, 15:20 Review of Systems ROS Narrative A ten point review of systems is negative except as noted above. PFSH PFSH Social History Little interest or pleasure in doing things: not at all Feeling down, depressed, or hopeless: not at all Exam Narrative Exam Narrative: Nurses note and vital signs reviewed and patient is not hypoxic. General: The patient is nearly continuously moving around on the cart Skin: Warm, dry, no pallor noted. There is no rash noted. Head: Normocephalic, atraumatic Eye: Normal conjunctiva, no drainage Ears, Nose, Mouth, and Throat: oral mucosa is moist. Nares patent. Cardiovascular: Regular Rate and Rhythm Respiratory: Patient is in no distress, no accessory muscle use, lungs are clear to auscultation, no wheezing, rales or rhonchi Back: non-tender GI: Soft and nondistended Musculoskeletal: The patient has no evidence of calf tenderness, no pitting edema, symmetrical pulses noted bilaterally Neurological: A&O, normal speech Psychiatric: He is quite anxious Constitutional Vital Signs, click to edit/add: Last Vital Signs Temp 98.3 F 05/09/25 10:07 Pulse 97 H 05/09/25 10:07 Resp 20 05/09/25 10:07 BP 184/107 H 05/09/25 10:07 Pulse Ox 99 05/09/25 10:07 O2 Del Method Room Air 05/09/25 10:07 Course Vital Signs Vital signs: Vital Signs Temperature 98.3 F 05/09/25 10:07 Pulse Rate 97 H 05/09/25 10:07 Respiratory Rate 20 05/09/25 10:07 Blood Pressure 184/107 H 05/09/25 10:07 Pulse Oximetry 99 05/09/25 10:07 Oxygen Delivery Method Room Air 05/09/25 10:07 Temperature 98.3 F 05/09/25 10:07 Pulse Rate 97 H 05/09/25 10:07 Respiratory Rate 20 05/09/25 10:07 Blood Pressure 184/107 H 05/09/25 10:07 Pulse Oximetry 99 05/09/25 10:07 Oxygen Delivery Method Room Air 05/09/25 10:07 Medical Decision Making [facility] Narrative Medical decision making narrative: Urinary catheter was inserted and the urinary retention issue is resolved for now. He was informed that the catheter would need to stay in until he sees a specialist for this issue and he was given referral to Dr. Vargas. 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 At 1 point he got into and ended up in [facility] and then had a mental institution because of these issues. I informed him I would not be prescribing him any benzodiazepines. Treatment diagnosis and follow-up were discussed with the patient. Differential Diagnosis Differential Diagnosis: Urinary retention Medical Records Medical records reviewed: Yes I reviewed the patient's medical records Lab Data Lab results reviewed: Yes I reviewed the patient's lab results Labs: Lab Results 05/09/25 05/09/25 Range/Units 10:20 10:30 WBC 9.4 (4.0-11.0) 10^3/uL RBC 4.62 L (4.70-6.10) 10^6/uL Hgb 15.1 (14.0-18.0) g/dL Hct 41.9 L (42.0-54.0) % MCV 90.7 (80.0-94.0) fL MCH 32.7 (25.9-34.0) pg MCHC 36.0 H (29.9-35.2) g/dL RDW 11.6 (11.0-15.0) % Plt Count 209 (150-450) 10^3/uL MPV 10.0 (9.5-13.5) fL Neut % (Auto) 74.6 (43.0-75.0) % Lymph % (Auto) 15.8 L (20.5-60.0) % [place] % (Auto) 7.4 (1.7-12.0) % Eos % (Auto) 1.5 (0.9-7.0) % Baso % (Auto) 0.4 (0.2-2.0) % Neut # (Auto) 7.0 H (1.4-6.5) 10^3/uL Lymph # (Auto) 1.5 (1.2-3.8) 10^3/uL [place] # (Auto) 0.7 (0.3-0.8) 10^3/uL Eos # (Auto) 0.1 (0.0-0.7) 10^3/uL Baso # (Auto) 0.0 (0.0-0.1) 10^3/uL Abs Immat Gran (auto) 0.03 (0.00-0.03) 10^3/uL Imm/Tot Granulo (auto) 0.3 (0.0-0.5) % Sodium 138 (136-145) mmol/L Potassium 3.2 L (3.5-5.1) mmol/L Chloride 100 (98-107) mmol/L Carbon Dioxide 23.1 (21.0-32.0) mmol/L Anion Gap 18.1 BUN 8.0 (7.0-18.0) mg/dL Creatinine 0.98 (0.70-1.30) mg/dL Est GFR ( Amer) >60 (>=60 mL/min/1.73m^2) Est GFR (Non-Af Amer) >60 (>=60 mL/min/1.73m^2) BUN/Creatinine Ratio 8.2 Glucose 89 (74-106) mg/dL Calcium 9.3 (8.5-10.1) mg/dL Urine Color Lt. yellow (YELLOW) Urine Clarity Clear (CLEAR) Urine pH 6.5 (5.0-9.0) Ur Specific [place] 1.025 (1.005-1.025) Urine Protein Negative (NEG/TRACE) mg/dL Urine Glucose (UA) Negative (NEGATIVE) mg/dL Urine Ketones 15 A (NEGATIVE) mg/dL Urine Occult Blood Large A (NEGATIVE) Urine Nitrite Negative (NEGATIVE) Urine Bilirubin Negative (NEGATIVE) Urine Urobilinogen 0.2 (0.2-1.0) EU/dL Ur Leukocyte Esterase Trace A (NEGATIVE) Urine RBC 20-50 A (0-2) #/HPF Urine WBC 0-2 A (NONE SEEN) #/HPF Ur Squamous Epith Cells Rare (NONE/RARE) #/LPF Urine Crystals None seen (None Seen) #/HPF Urine Bacteria None seen (NONE SEEN) #/HPF Urine Casts None seen (NONE SEEN) #/LPF Urine Mucus None seen (NONE SEEN) Ur Culture Indicated? No Discharge Plan Discharge Chief Complaint: Urogenital-Male Clinical Impression: Acute urinary retention Patient Disposition: Home, Self-Care Time of Disposition Decision: 11:37 Condition: Good Mode of Transportation: Private Vehicle Prescriptions / Home Meds: No Action dicyclomine 20 mg tablet 20 mg PO QID PRN (Reason: abdominal pain) Qty: 12 0RF hydrocodone-acetaminophen 5-325 mg tablet 1 tab PO Q6H PRN (Reason: pain) 5 Days Qty: 20 0RF metronidazole 500 mg tablet 500 mg PO TID Qty: 30 0RF ciprofloxacin HCl [Cipro] 500 mg tablet 500 mg PO Q12H Qty: 20 0RF ondansetron 4 mg tablet,disintegrating 4 mg PO Q6H PRN (Reason: nausea and vomiting) Qty: 20 0RF ondansetron 4 mg tablet,disintegrating 4 mg PO Q6H PRN (Reason: nausea and vomiting) Qty: 12 0RF hydrocodone-acetaminophen 5-325 mg tablet 1 tab PO Q6H PRN (Reason: pain) 3 Days Qty: 12 0RF Rx Instructions: M79.671 Print Language: Mexican Instructions: Urinary Retention in Men (ED), How to Change a Catheter Drainage Bag (DC) Additional Instructions: Catheter stays and at least until you see the urologist. Referrals: MELY BONILLA [Primary Care Provider, Family Practice] - 1 week Ethan Vargas MD [Physician, Urology] - 1 week
[2025-05-09 10:46] LABS: Cast Seen? NONE SEEN #/LPF (NONE SEEN); Crystals Seen? None Seen #/HPF (None Seen); Urine Culture Indicated NO
[2025-05-09 10:58] LABS: Anion Gap 18.1; Blood Urea Nitrogen 8.0 mg/dL (7.0-18.0); Calcium 9.3 mg/dL (8.5-10.1); Carbon Dioxide 23.1 mmol/L (21.0-32.0); Chloride 100 mmol/L (98-107); Estimated GFR (African America >60 (>=60 mL/min/1.73m^2); Estimated GFR (Non-African Ame >60 (>=60 mL/min/1.73m^2); Glucose 89 mg/dL (74-106); Potassium 3.2 mmol/L (3.5-5.1); Sodium 138 mmol/L (136-145)
[2025-05-09] MEDS: DIAZEPAM 10 MG/2 ML SYRINGE 2.5 MG IV (11:15)
[2025-05-09 12:03] VITALS: BP 164/100; PULSE 90; O2SAT 94
== END 2025-05-09 12:05 | disposition home or self-care (01) ==
PROVIDERS: Emergency Provider Emergency Medicine; PCP Family Medicine
DX: R33.9 Retention of urine, unspecified (principal); Z46.6 Encounter for fitting and adjustment of urinary device; Z53.21 Procedure and treatment not carried out due to patient leaving prior to being seen by health care provider
CPT/HCPCS: 36415; 51702; 80048; 81001; 85025; 96374; 99281; 99284; J3360

== ENCOUNTER 2025-05-09 16:45 | Emergency (ER) | payer OTHER, SELFPAY ==
--- OUTSIDE RECORDS SUMMARY | 2025-05-09 16:55 | XMS_ITS | CCD ---
Author Organization [facility] Care Team Providers Care Chinese Medicine Practitioner Name Role Phone OSINOWO, OSIYEMI Unavailable Unavailable [...] Provider Cisco Bonilla DO Primary Care Provider CISCO BONILLA Attending Unavailable CISCO BONILLA Referring Unavailable CARLOS ALBERTOLONG, CISCO Thomason Primary Care Unavailable CARLOS ALBERTOLONG, CISCO Thomason Attending Unavailable CARLOS ALBERTOLONG, CISCO Thomason Referring Unavailable FURLONG, CISCO Thomason Primary Care Unavailable CARLOS ALBERTOLOCISCO CAO Attending Unavailable CARLOS ALBERTOLONGCISCO Referring Unavailable FURLONG, CISCO Thomason Primary Care Unavailable FURLONG, CSICO Thomaosn Referring Unavailable FURLONG, CISCO G Primary Care Unavailable FURLONG, CISCO G Referring Unavailable FURLONG, CISCO G Primary Care Unavailable Tyson Tolliver MD Primary Care Provider [phone] Vivian Brady MD Unavailable [phone] [place] Cisco MCLAUGHLIN Primary Care Provider Shiv Avina DOin A Attending Provider [phone] Ehsan Avina DO A Other Provider Kailyn, [...] Brady Attending Unavailable Vivian Brady Attending Unavailable Didi Allen Attending Unavailable Vivian Brady Attending Unavailable Allergies Allergy Classification Reported Allergen(s) Allergy Type Date of Onset Reaction(s) Facility (1 source) No Known Medication Allergies; Translations: [No Known Medication Allergies] Propensity to adverse reactions (disorder) [facility] Repository Medications Current Medications Medication Drug [...] constipation, # 10 supp, Refills(s) 0, Pharmacy: [facility], 173, cm, 01/24/25 10:35:00 EDT, Height/Length [...] Daily, # 30 tab(s), Refills(s) 4, Pharmacy: [facility], 173, cm, 01/24/25 10:35:00 EDT, Height/Length Dosing, 86.3, kg, 01/24/25 10:35:00 EDT, Weight Dosing Start Date: 01/24/25 Status: Ordered Quantity: 30.0 Unit: tab(s) Repeat number: 5 Indications: Other specified disorders of muscle; Outlet dysfunction constipation; Constipation, unspecified; Psychological and behavioral factors associated with disorders or diseases classified elsewhere; Other psychoactive substance dependence, uncomplicated; Abdominal distension (gaseous); polyethylene glycol 3350 43890 mg powder for oral solution (20 sources) [...] bedtime) for constipation, 100 tab(s), Refill(s) 0, [facility], 173, cm, 01/24/25 10:35:00 EDT, Height/Length Dosing, 86.3, kg, 01/24/25 10:35:00 EDT, Weight Dosing Start Date: 04/19/25 Status: Ordered Quantity: 100.0 Unit: tab(s) Repeat number: 1 Start: 01-09-2025 Senna 8.6 mg o ral tablet 17.2 mg, 2 tab(s), Oral, Once a day (at bedtime) for constipation, 100 tab(s), Refill(s) 3, [facility], 173, cm, 01/09/25 12:52:00 EDT, [...] 2025 March 19, 2025 11:33am peg 3350-sod sulf,qmmt-jmo-ubr 178.7-7.3-0.5 gram recon soln (1 source) Start: 02-13-2024 End: 02-14-2024 peg 3350-sod sulf,qiux-ijw-omw 178.7-7.3-0.5 gram recon soln Indications: Change in [...] disorder; Translations: [Benign essential hypertension] Onset: 03-09-20 02-02-2024 Chronic Fluid and electrolyte disorders (8 sources) Hyperkalemia; Translations: [Dehydration] Onset: 08-30-19 17 03-03-2024 Episodic Fracture of lower limb (19 sources) Displaced fracture of fifth metatarsal bone, right foot, initial encounter for closed fracture; Translations: [Fracture of fifth metatarsal bone of right foot] Onset: 03-13-2002-18-2025 Episodic Genitourinary symptoms and ill-defined conditions (14 [...] : 02-18-2003-09-2021 Chronic Other connective tissue disease (3 sources) [...] RT 2Von 03-20-2025 XR foot RT 2[place] [address] XRay Report Signed Patient: Chai Arnold MR#: [id number] 2 : 1970 Acct:[id number] Age/Sex: 54 / M ADM Date: 03/19/25 Loc: [place] Room: Type: [facility] Attending Dr: Ehsan Avina DO Copies [...] 03/20/2025 8:49 AM Dictation Location: [place] [address] Transcribed By: [facility] 03/20/25 0849 Dictated By: Dante Lisa II, MD 03/20/25 0849 Signed By: 03/20/25 0849 Normal [facility] Amphetamine Screen Ql (U)Ord ered By: Nirmal Bruno on 03-19-2025 Amphetamines Ql (U) Negative Negative [facility] Barbiturates [Presence] in U rine by Screen methodOrdered By: Nirmal Bruno on 03-19-2025 Barbiturates Screen Ql (U) Negative Negative [facility] Benzodiazepines Screen Ql (U )Ordered By: Nirmal Bruno on 03-19-2025 Benzodiazepines Ql (U) Positive High Negative Fi [facility] Benzoylecgonine [Presence] i n Urine by Screen methodOrdered By: Nirmal Bruno on 03-19-2025 Benzoylecgonine Screen Ql (U) Negative Negative [facility] Cannabinoids [Presence] in U rine by Screen methodOrdered By: Nirmal Bruno on 03-19-2025 Cannabinoids Screen Ql (U) Negative Negative [facility] Comment on above: These are unconfirme d results and should not be used for legal purposes. Drug Cut-Off Concentration: AMPH 1000 ng/mL MAXIMILIAN 200 ng/mL NORA 200 ng/mL COCM 300 ng/mL OP 300 ng/mL PCP 25 ng/mL THC 20 ng/mL Drug Screen,Urineon 03-19-20 Amphetamine Screen,Urine Negative Normal Negative [facility] Comment on above: Performed By: #### U RDS #### [address] Barbiturate Screen,Urine Negative Normal Negative [facility] Comment on above: Performed By: #### U RDS #### [place] [address] [place] Benzodiazepines Screen,Urine Positive Normal Negative [facility] Comment on above: Performed By: #### U RDS #### [place] [address] [place] Cannabinoid Screen,Urine Negative Normal Negative [facility] Comment on above: Result Comment: Thes e are unconfirmed results and should not be used for legal purposes. Drug Cut-Off Concentration: AMPH 1000 ng/mL MAXIMILIAN 200 ng/mL NORA 200 ng/mL COCM 300 ng/mL OP 300 ng/mL PCP 25 ng/mL THC 20 ng/mL PERFORMED BY: [place] [address] PATHOLOGIST LOCAL ANNOUNCER BROWN OLIVIER M.D. Performed By: #### U RDS #### [address] [place] [address] [place] Cocaine Screen,Urine Negative Normal Negative [facility] Comment on above: Performed By: #### U RDS #### [facility] [address] Opiate Screen,Urine Positive Normal Negative [facility] Comment on above: Performed By: #### U RDS #### [facility] [address] Phencyclidine Screen,Urine Negative Normal Negative [facility] Comment on above: Performed By: #### U RDS #### [facility] [address] Opiates [Presence] in Urine by Screen methodOrdered By: Nirmal Bruno on 03-19-2025 Opiates Screen Ql (U) Positive High Negative [facility] Phencyclidine Screen Ql (U)O rdered By: Nirmal Bruno on 03-19-2025 Phencyclidine Ql (U) Negative Negative [facility] Alanine aminotransferase [En zymatic activity/volume] in Serum or PlasmaOrdered By: Ehsan Avina on 03-18-2025 ALT [Catalytic activity/Vol] 15 U/L 7-[address] [facility] Comment on above: Performed By: #### C MP wRFX A1C, CBC #### [facility] [address] Albumin [Mass/volume] in Ser um or Plasma by Bromocresol green (BCG) dye binding methoOrdered By: Ehsan Avina on 03-18-2025 Albumin BCG dye [Mass/Vol] 4.2 g/dL 3.5-5.[address] [facility] Alkaline phosphatase [Enzyma tic activity/volume] in Serum or PlasmaOrdered By: Ehsan Avina on 03-18-2025 ALP [Catalytic activity/Vol] 116 U/L High 34-[address] [facility] Comment on above: Result Comment: PERF ORMED BY: [place] [address] PATHOLOGIST LOCAL ANNOUNCER BROWN OLIVIER M.D. Performed By: #### C MP wRFX A1C, CBC #### [facility] [address] Aspartate aminotransferase [ Enzymatic activity/volume] in Serum or PlasmaOrdered By: Ehsan Avina on 03-18-2025 AST [Catalytic activity/Vol] 20 U/L 13-[address] [facility] Comment on above: Performed By: #### C MP wRFX A1C, CBC #### [address] Basophils [#/volume] in Bloo d by Automated countOrdered By: Ehsan Avina on 03-18-2025 Basophils (Bld) [#/Vol] 0.1 10*3/uL 0.0-0.[address] [facility] Comment on above: Result Comment: PERF ORMED BY: [place] [address] PATHOLOGIST LOCAL ANNOUNCER BROWN OLIVIER M.D. Performed By: #### C MP wRFX A1C, CBC #### [address] Basophils/100 leukocytes in Blood by Automated countOrdered By: Ehsan Avina on 03-18-2025 Basophils/100 WBC (Bld) 0.9 % . [facility] Comment on above: Performed By: #### C MP wRFX A1C, CBC #### [address] Bilirubin.total [Mass/volume ] in Serum or PlasmaOrdered By: Ehsan Avina on 03-18-2025 Bilirubin [Mass/Vol] 1.0 mg/dL 0.3-1.0 [facility] Comment on above: Performed By: #### C MP wRFX A1C, CBC #### [facility] [address] [place] [address] CMP with reflex to A1Con Albumin [Mass/Vol] 4.2 g/dL Normal 3.5-5.7 [facility] Comment on above: Performed By: #### C MP wRFX A1C, CBC #### [place] [address] [place] GFR/1.73 sq M.predicted MDRD (S/P/Bld) [Vol rate/Area] mL/min/{1.73_m2} Normal [facility] Comment on above: Performed By: #### C MP wRFX A1C, CBC #### [address] Calcium [Mass/volume] in Ser um or PlasmaOrdered By: Ehsan Avina on 03-18-2025 Calcium [Mass/Vol] 9.2 mg/dL 8.6-10.3 [facility] Comment on above: Performed By: #### C MP wRFX A1C, CBC #### [address] Carbon dioxide, total [Moles /volume] in Serum or PlasmaOrdered By: Ehsan Avina on 03-18-2025 CO2 [Moles/Vol] 29.7 mmol/L 21.0-31.0 [facility] Comment on above: Performed By: #### C MP wRFX A1C, CBC #### [address] Chloride [Moles/volume] in S dereje or PlasmaOrdered By: Ehsan Avina on 03-18-2025 Chloride [Moles/Vol] 102 mmol/L 98-107 [facility] Comment on above: Performed By: #### C MP wRFX A1C, CBC #### [address] Complete Blood Count Auto Di ffon 03-18-2025 Mean Corpuscular HGB Conc 34.4 g/dL Normal 32.5-35.6 [facility] Comment on above: Performed By: #### C MP wRFX A1C, CBC #### [place] [address] [place] NRBC% 0.1 /100{WBC} Normal 0-0.5 [facility] Comment on above: Performed By: #### C MP wRFX A1C, CBC #### [address] White Blood Count 6.4 [CFU]/mL Normal 4.1-10.5 [facility] Comment on above: Performed By: #### C MP wRFX A1C, CBC #### [facility] [address] Creatinine [Mass/volume] in Serum or PlasmaOrdered By: Ehsan Avina on 03-18-2025 Creatinine [Mass/Vol] 1.03 mg/dL 0.70-1.30 [facility] Comment on above: Performed By: #### C MP wRFX A1C, CBC #### [facility] [address] ECG 12 lead ECGon 03-18-2025 ECG 12 lead ECG [facility] [place] [address] [place] [address] Electrocardiograph Report Signed Patient: Chai Arnold MR#: [id number] 2 : 1970 Acct:[id number] Age/Sex: 54 / M ADM Date: 03/18/25 Loc: Room: Type: [facility] Attending Dr: Ehsan Avina DO Ordering [...] previous ECGs available Confirmed by Eduardo Torrez ([id number]) on 03/18/2025 1:40:16 PM Referred By: Electronically Signed By: Eduardo Torrez Transcribed By: MUS Signed By Eduardo Torrez MD 03/18/25 1340 Normal [facility] Eosinophils [#/volume] in Bl ood by Automated countOrdered By: Ehsan Avina on 03-18-2025 Eosinophils (Bld) [#/Vol] 0.9 10*3/uL High 0.0-0.[address] [facility] Comment on above: Performed By: #### C MP wRFX A1C, CBC #### [facility] [address] [place] [address] [place] Eosinophils/100 leukocytes i n Blood by Automated countOrdered By: Ehsan Avina on 03-18-2025 Eosinophils/100 WBC (Bld) 14.4 % . [facility] Comment on above: Performed By: #### C MP wRFX A1C, CBC #### [place] [address] [place] Erythrocyte distribution wid th [Ratio] by Automated countOrdered By: Ehsan Avina on 03-18-2025 Erythrocyte distribution width (RBC) [Ratio] 12.9 % 12.0-14.[address] [facility] Comment on above: Performed By: #### C MP wRFX A1C, CBC #### [place] [address] [place] Erythrocytes [#/volume] in B lood by Automated countOrdered By: Ehsan Avina on 03-18-2025 RBC (Bld) [#/Vol] 4.85 10*6/uL 3.90-5.60 [facility] Comment on above: Performed By: #### C MP wRFX A1C, CBC #### [facility] [address] [place] [address] [place] Glucose [Mass/volume] in Ser um or PlasmaOrdered By: Ehsan Avina on 03-18-2025 Glucose [Mass/Vol] 88 mg/dL 70-100 [facility] Comment on above: Performed By: #### C MP wRFX A1C, CBC #### [place] [address] [place] Hematocrit [Volume Fraction] of Blood by Automated countOrdered By: Ehsan Avina on 03-18-2025 Hematocrit (Bld) [Volume fraction] 46.4 % 38.8-50.[address] [facility] Comment on above: Performed By: #### C MP wRFX A1C, CBC #### [place] [address] [place] Hemoglobin [Mass/volume] in BloodOrdered By: Ehsan Avina on 03-18-2025 Hemoglobin (Bld) [Mass/Vol] 16.0 g/dL 13.0-17.[address] [facility] Comment on above: Performed By: #### C MP wRFX A1C, CBC #### [address] Leukocytes [#/volume] correc ernst for nucleated erythrocytes in Blood by Automated counOrdered By: Ehsan Avina on 03-18-2025 WBC corrected for nucl RBC Auto (Bld) [#/Vol] 6.4 10*3/uL 4.1-10.[address] [facility] Leukocytes [#/volume] in Blo od by Automated countOrdered By: Ehsan Avina on 03-18-2025 WBC (Bld) [#/Vol] 6.4 10*3/uL 4.1-10.5 [facility] Comment on above: Performed By: #### C MP wRFX A1C, CBC #### [facility] [address] [place] [address] [place] Lymphocytes [#/volume] in Bl ood by Automated countOrdered By: Ehsan Avina on 03-18-2025 Lymphocytes (Bld) [#/Vol] 1.2 10*3/uL 1.00-4.[address] [facility] Comment on above: Performed By: #### C MP wRFX A1C, CBC #### [place] [address] [place] Lymphocytes/100 leukocytes i n Blood by Automated countOrdered By: Ehsan Avina on 03-18-2025 Lymphocytes/100 WBC (Bld) 18.9 % . [facility] Comment on above: Performed By: #### C MP wRFX A1C, CBC #### [facility] [address] [place] [address] [place] MCH [Entitic mass] by Automa ernst countOrdered By: Ehsan Avina on 03-18-2025 MCH (RBC) [Entitic mass] 32.9 pg 27.5-35.[address] [facility] Comment on above: Performed By: #### C MP wRFX A1C, CBC #### [address] [address] [place] MCHC Auto (RBC) [Mass/Vol]Or dered By: Ehsan Avina on 03-18-2025 MCHC (RBC) [Mass/Vol] 34.4 g/dL 32.5-35.6 [facility] MCV [Entitic volume] by Auto mated countOrdered By: Ehsan Avina on 03-18-2025 MCV (RBC) [Entitic vol] 95.7 fL 83.5-101 F [facility] Comment on above: Performed By: #### C MP wRFX A1C, CBC #### [facility] [address] [place] [address] [place] Monocytes [#/volume] in Bloo d by Automated countOrdered By: Ehsan Avina on 03-18-2025 Monocytes (Bld) [#/Vol] 0.6 10*3/uL 0.0-0.[address] [facility] Comment on above: Performed By: #### C MP wRFX A1C, CBC #### [facility] [address] [place] [address] [place] Monocytes/100 leukocytes in Blood by Automated countOrdered By: Ehsan Avina on 03-18-2025 Monocytes/100 WBC (Bld) 9.7 % . F [facility] Comment on above: Performed By: #### C MP wRFX A1C, CBC #### [facility] [address] [place] [address] [place] Neutrophils [#/volume] in Bl ood by Automated countOrdered By: Ehsan Avina on 03-18-2025 Neutrophils (Bld) [#/Vol] 3.6 10*3/uL 1.8-7.[address] [facility] Comment on above: Performed By: #### C MP wRFX A1C, CBC #### [facility] [address] [place] [address] [place] Neutrophils/100 leukocytes i n Blood by Automated countOrdered By: Ehsan Avina on 03-18-2025 Neutrophils/100 WBC (Bld) 56.1 % . [facility] Comment on above: Performed By: #### C MP wRFX A1C, CBC #### [address] [place] [address] [place] No Panel InformationOrdered By: Ehsan Avina on 03-18-2025 Estimated GFR (CKD-EPI) > 60.0 mL/Min [facility] Creatinine Clearance (Chem N/A [facility] Nucleated erythrocytes [Pres ence] in Blood by Automated countOrdered By: Ehsan Avina on 03-18-2025 Nucleated RBC Auto Ql (Bld) 0.1 /100{WBC} 0-0.[address] [facility] Platelet mean volume [Entiti c volume] in Blood by Automated countOrdered By: Ehsan Avina on 03-18-2025 Platelet mean volume (Bld) [Entitic vol] 8.1 fL 6.6-10.[address] [facility] Comment on above: Performed By: #### C MP wRFX A1C, CBC #### [address] Platelets [#/volume] in Bloo d by Automated countOrdered By: Ehsan Avina on 03-18-2025 Platelets (Bld) [#/Vol] 213 10*3/uL 150-[address] [facility] Comment on above: Performed By: #### C MP wRFX A1C, CBC #### [address] Potassium [Moles/volume] in Serum or PlasmaOrdered By: Ehsan Avina on 03-18-2025 Potassium [Moles/Vol] 4.1 mmol/L 3.5-5.1 [facility] Comment on above: Performed By: #### C MP wRFX A1C, CBC #### [place] [address] [place] Protein [Mass/volume] in Ser um or PlasmaOrdered By: Ehsan Avina on 03-18-2025 Protein [Mass/Vol] 6.9 g/dL 6.4-8.9 [facility] Comment on above: Performed By: #### C MP wRFX A1C, CBC #### [address] Serum globulin measurement b y calculation (mass/volume)Ordered By: Ehsan Avina on 03-18-2025 Globulin (S) [Mass/Vol] 2.7 g/dL [facility] Comment on above: Performed By: #### C MP wRFX A1C, CBC #### [facility] [address] Serum or plasma albumin/glob ulin mass ratioOrdered By: Ehsan Avina on 03-18-2025 Albumin/Globulin [Mass ratio] 1.6 {ratio} [facility] Comment on above: Performed By: #### C MP wRFX A1C, CBC #### [facility] [address] Serum or plasma anion gap de terminationOrdered By: Ehsan Avina on 03-18-2025 Anion gap [Moles/Vol] 9.4 mmol/L 6.0-15.0 [facility] Comment on above: Performed By: #### C MP wRFX A1C, CBC #### [facility] [address] Sodium [Moles/volume] in Ser um or PlasmaOrdered By: Ehsan Avina on 03-18-2025 Sodium [Moles/Vol] 137 mmol/L 136-145 [facility] Comment on above: Performed By: #### C MP wRFX A1C, CBC #### [facility] [address] Urea nitrogen [Mass/volume] in Serum or PlasmaOrdered By: Ehsan Avina on 03-18-2025 Urea nitrogen [Mass/Vol] 9 mg/dL 7-[address] [facility] Comment on above: Performed By: #### C MP wRFX A1C, CBC #### [facility] [address] X-ray reportOrdered By: Rodney Dawson on 03-13-2025 Study report [facility] [address] [place] [address] XRay Report Signed Patient: Chai Arnold MR#: [id number] : 1970 Acct:[id number] Age/Sex: 54 / M ADM Date: 5 [place] [facility] [place]: Type: REG CLI Attending Dr: Ehsan [...] Dawson M.D. 03/13/2025 10:25 PM Dictation Location: [place] [address] Transcribed By: [facility] 03/13/252224 Dictated By: Garrett Dawson DO 03/13/252220 Signed By: 03/13/252224 [facility] XR foot RT min 3V*on 025 XR foot RT min 3V* [facility] [address] [place] [address] XRay Report Signed Patient: Chai Arnold MR#: [id number] 2 : 1970 Acct:[id number] Age/Sex: 54 / M ADM Date: 03/13/25 [place] [facility] Room: Type: REG CLI Attending Dr: Ehsan [...] 10:25 PM Dictation Location: RADIO-PC-20 Transcribed By: [facility] 03/13/252224 Dictated By: Garrett Dawson DO 03/13/252220 Signed By: 03/13/252224 Normal [facility] 03-07-2025 CNPN Telephone ([facility]) ---- CHAI ARNOLD ([id number]) 1970 M Date Time Provider Department 03/07/25 LYDIA DRAKE During your visit today, we recorded the following information about you: Sterling Gonzalez 03/07/2025 1:33 PM Signed Chai Arnold - [phone] Patient contacted the office regarding the baclofen [...] Encounter Status:Closed by STERLING GONZALEZ on 03/07/25 Normal [facility] ANORECTAL MANOMET Maryanne 02-28-2025 PATIENT NAME: Chai Arnold PATIENT IDENTITY VERIFICATION COMPLETED USING TWO (2) IDENTIFIERS: Name and Date of confirmed by patient verbally. 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 As applicable, any other physician, advance practice provider, medical student, or other health professional student that will be observing or involved in the sensitive examination for educational or training purposes was discussed with the Patient or Authorized Fulfillment Specialist. The Patient or Authorized Fulfillment Specialist has agreed to proceed with the sensitive examination. 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 Work Phone: CNNURSEon 02-28-2025 CNNURSE Nurse Visit (KENIA) ---- CHAI ARNOLD ([id number]) 1970 M Date Time Provider Department 02/28/25 12:30 PM SAHIL BERGERON During your visit today, we recorded the following information about you: Referring Provider: VIOLETTE MAURER [[id number]] Allergies As of Date: 02/28/2025 (No Known Allergies) Date Reviewed: 02/28/2025 Reviewed by: Macey Meek OCCA - Fully Assessed Reason for Visit: Manometry [780] Visit Diagnosis:Pelvic floor dysfunction [M62.89] Order(s):[facility] ANORECTAL MANOMETRY [[id number]] Order #: [id number] Prescriptions as of 02/28/2025 - ALPRAZolam (XANAX) [...] Encounter Status:Closed by SAHIL BERGERON on 02/28/25 [facility] CNOVon 02-28-2025 CNOV Office Visit (KENIA) ---- CHAI ARNOLD ([id number]) 1970 M Date Time Provider Department 02/28/25 [...] a compounded preparation from a pharmacy in [place], and previously used hydrocortisone. He has not [...] retroflexed positi (more content not included)... Normal [facility] HISTORY PHYSICALon HISTORY PHYSICAL HNO ID: [id number] Author: LYDIA DRAKE PA-C Service: ? Author Type: Physician Drag Sawyer Type: H&P Filed: 02/28/2025 13:41 Note Text: [...] a compounded preparation from a pharmacy in [place], and previously used hydrocortisone. He has not [...] No pa (more content not included)... Normal [facility]eli [facility] ---- CHAI ARNOLD ([id number]) 1970 M Date Time Provider Department 02/11/25 ASHLEY HAYWARD [facility] During your visit today, we recorded the following information about you: Chelle Christianson 02/11/2025 9:39 AM Signed Recevied referral from Satish Blackwood vm fot pt referral for botox injections Allergies As of Date: 02/11/2025 (Not on File) Date Reviewed: Never Reviewed Reason for Visit: Appointment [186] Cmt: Left vm we received referral for botox injections Problem List As Of Date: 02/11/2025 (None) Encounter Status:Closed by CHELLE CHRISTIANSON on 02/11/25 [facility] Ambulatory Visit Summaryon 0 6-05-2025 Ambulatory Visit Summary Ambulatory Visit Summary CHAI [...] AM EDT With: Vivian Brady MD Where: [facility] [address] [place], [place] [id number]- Medications What How Much When Why Instructions New plecanatide (Trulance 3 mg oral tablet) 1 Tablets By Mouth Every day Constipation Constipation by outlet dysfunction Pelvic floor dysfunction Bloating Stress-related physiological response affecting medical condition Drug dependence Refills: 4 Pickup at [facility] Unchanged amlodipine (amLODIPine 5 mg Tab) [...] physician if questions or concerns Pharmacy Information [facility]: [address] [place] [phone] Allergies No Known Medication Allergies Problems Ongoing [...] for choosing us for your care. Normal [facility] Gastroenterology Office/Clin ic Noteon 01-24-2025 Gastroenterology [...] him. Will refer to GI psychology at [facility] Advised to use squatty potty and [...] days could not see a provider at [facility] Review of Systems PHQ Score Initial [...] Daily, # 30 tab(s), Refills(s) 4, Pharmacy: [facility], 173, cm, 01/24/25 10:35:00 EDT, Height/Length Dosing, 86.3, kg, 01/24/25 10:35:00 EDT, Weight Dosing 2. Constipation by outlet dysfunction (K59.02: Outlet dysfunction constipation) Ordered: plecanatide, 3 mg = 1 tab(s), Oral, Daily, # 30 tab(s), Refills(s) 4, Pharmacy: [facility], 173, cm, 01/24/25 10:35:00 EDT, Height/Length Dosing, 86.3, kg, 01/24/25 10:35:00 EDT, Weight Dosing 3. Pelvic floor dysfunction (M62.89: Other specified disorders of muscle) Ordered: plecanatide, 3 mg = 1 tab(s), Oral, Daily, # 30 tab(s), Refills(s) 4, Pharmacy: [facility], 173, cm, 01/24/25 10:35:00 EDT, Height/Length Dosing, 86.3, kg, 01/24/25 10:35:00 EDT, Weight Dosing 4. Bloating (R14.0: Abdominal distension (gaseous)) Ordered: plecanatide, 3 mg = 1 tab(s), Oral, Daily, # 30 tab(s), Refills(s) 4, Pharmacy: [facility], 173, cm, 01/24/25 10:35:00 EDT, Height/Length Dosing, 86.3, kg, 01/24/25 10:35:00 EDT, Weight Dosing 5. Stress-related physiological response affecting medical condition (F54: Psychological and behavioral factors associated with disorders or diseases classified elsewhere) Ordered: (more content not included)... Normal [facility] Comment on above: Result Comment: Elec [...] Someone Will Contact You Regarding These Appointments [facility] External Ambulatory Referral, Gastroenterology, 01/09/25 13:16:00 EDT, [...] you for choosing us for your care. Petr Sandhu [facility] Gastroenterology Office/Clin ic Noteon 01-09-2025 Gastroenterology [...] him. Will refer to GI psychology at [facility] Advised to use squatty potty and [...] 11/18/2020 Recorded (more content not included)... Normal [facility] Comment on above: Result Comment: Elec tronically Signed By: Caitlyn CHAVIS, Vivian Lance\.br\Date and Time Signed: 01/09/25 13:17 EDT COMPLETE BLOOD COUNTon 12-10 Erythrocyte distribution width (RBC) [Ratio] 13.5 % Normal 11.5-15.0 [facility] Comment on above: Performed By: #### C KARLEY, CMP, 2498-4, 73981-2, 2857-1, TSHR #### [facility] ([id number]) [address] [address] Hematocrit (Bld) [Volume fraction] 48.2 % Normal 39-49 [facility] Comment on above: Performed By: #### C BC, CMP, 2498-4, 41604-9, 2857-1, TSHR #### [facility] ([id number]) [address], [facility] [address] [place] [address] Hemoglobin (Bld) [Mass/Vol] 16.1 g/dL Normal 13.0-17.0 [facility] Comment on above: Performed By: #### C BC, CMP, 2498-4, 83510-0, 2857-1, TSHR #### [facility] ([id number]) [address], [address] [place] [address] MCH (RBC) [Entitic mass] 31.9 pg Normal 27-34 [facility] Comment on above: Performed By: #### C BC, CMP, 2498-4, 56358-2, 2857-1, TSHR #### [facility] ([id number]) [address], [facility] [address] [place] [address] MCHC (RBC) [Mass/Vol] 33.4 g/dL Normal 32-36 [facility] Comment on above: Performed By: #### C BC, CMP, 2498-4, 36475-2, 2857-1, TSHR #### [facility] ([id number]) [address], [address] [address] MCV (RBC) [Entitic vol] 96 fL Normal 80-100 [facility] Comment on above: Performed By: #### Remberto BC, CMP, 2498-4, 08832-2, 2857-1, TSHR #### [facility] ([id number]) [address], [facility] [address] [place] [address] Platelet mean volume (Bld) [Entitic vol] 9.6 fL Normal 7-12 [facility] Comment on above: Performed By: #### Remberto BC, CMP, 2498-4, 41968-8, 2857-1, TSHR #### [facility] ([id number]) [address], [address] [address] Platelets (Bld) [#/Vol] 184 10*3/uL Normal 150-450 [facility] Comment on above: Performed By: #### C BC, CMP, 2498-4, 87166-5, 2857-1, TSHR #### [facility] ([id number]) [address], [address] [place] [address] RBC COUNT 5.04 X10E12/L Normal 4.10-5.70 [facility] Comment on above: Performed By: #### C BC, CMP, 2498-4, 11987-0, 2857-1, TSHR #### [facility] ([id number]) [address], [address] [place] [address] WBC (Bld) [#/Vol] 5.2 10*3/uL Normal 4.0-11.0 [facility] Comment on above: Performed By: #### C BC, CMP, 2498-4, 39301-4, 2857-1, TSHR #### [facility] ([id number]) [address], [address] [place] [address] COMPREHENSIVE METABOLIC PANE Vern 12-10-2024 Albumin [Mass/Vol] 4.5 g/dL Normal 3.2-5.3 [facility] Comment on above: Performed By: #### C BC, CMP, 2498-4, 29171-4, 2857-1, TSHR #### [facility] ([id number]) [address], [address] [place] [address] ALP [Catalytic activity/Vol] 101 U/L Normal 39-130 [facility] Comment on above: Performed By: #### C BC, CMP, 2498-4, 99700-5, 2857-1, TSHR #### [facility] ([id number]) [address], [address] [place] [address] ALT [Catalytic activity/Vol] 38 U/L Normal 0-40 [facility] Comment on above: Performed By: #### C BC, CMP, 2498-4, 61484-7, 2857-1, TSHR #### [facility] ([id number]) [address], [address] [place] [address] Anion gap [Moles/Vol] 11 mmol/L Normal 5-15 [facility] Comment on above: Performed By: #### C BC, CMP, 2498-4, 23252-5, 2857-1, TSHR #### [facility] ([id number]) [address], [address] [place] [address] AST [Catalytic activity/Vol] 28 U/L Normal 0-41 [facility] Comment on above: Performed By: #### C BC, CMP, 2498-4, 83745-6, 2857-1, TSHR #### [facility] ([id number]) [address], [address] [place] [address] Bilirubin [Mass/Vol] 0.6 mg/dL Normal 0.3-1.2 [facility] Comment on above: Performed By: #### C BC, CMP, 2498-4, 82011-8, 2857-1, TSHR #### [facility] ([id number]) [address], [address] [place] [address] Calcium [Mass/Vol] 9.6 mg/dL Normal 8.5-10.5 [facility] Comment on above: Performed By: #### C BC, CMP, 2498-4, 97020-6, 2857-1, TSHR #### [facility] ([id number]) [address], [address] [place] [address] Chloride [Moles/Vol] 105 mmol/L Normal 98-109 [facility] Comment on above: Performed By: #### Remberto BC, CMP, 2498-4, 30406-8, 2857-1, TSHR #### [facility] ([id number]) [address], [address] [place] [address] CO2 [Moles/Vol] 26 mmol/L Normal 22-32 [facility] Comment on above: Performed By: #### C BC, CMP, 2498-4, 89110-9, 2857-1, TSHR #### [facility] ([id number]) [address], [address] [place] [address] Creatinine [Mass/Vol] 0.94 mg/dL Normal 0.60-1.30 [facility] Comment on above: Result Comment: METH OD TRACEABLE TO IDMS STANDARD Performed By: #### C KARLEY, CMP, 2498-4, 75569-6, 2857-1, TSHR #### [facility] ([id number]) [address], [address] [place] [address] eGFR (CKD-EPI) NON-RACE DEPENDENT >90 Normal >59 [facility] Comment on above: Result Comment: Reported eGFR is based on the CKD-EPI 2020 equation that does not use a race coefficient. Performed By: #### C KARLEY, CMP, 2498-4, 89745-4, 2857-1, TSHR #### [facility] ([id number]) [address], [address] [place] [address] Glucose [Mass/Vol] 86 mg/dL Normal 65-99 [facility] Comment on above: Performed By: #### Remberto CRANDALL, CMP, 2498-4, 66331-9, 2857-1, TSHR #### [facility] ([id number]) [address], [address] [place] [address] Potassium [Moles/Vol] 4.2 mmol/L Normal 3.5-5.0 [facility] Comment on above: Performed By: #### Remberto CRANDALL, CMP, 2498-4, 22271-7, 2857-1, TSHR #### [facility] ([id number]) [address], [address] [place] [address] Protein [Mass/Vol] 7.4 g/dL Normal 6.0-8.0 [facility] Comment on above: Performed By: #### C BC, CMP, 2498-4, 71343-4, 2857-1, TSHR #### [facility] ([id number]) [address], [address] [place] [address] Sodium [Moles/Vol] 142 mmol/L Normal 134-146 [facility] Comment on above: Performed By: #### C BC, CMP, 2498-4, 25331-6, 2857-1, TSHR #### [facility] ([id number]) [address], [address] [place] [address] Urea nitrogen [Mass/Vol] 13 mg/dL Normal 5-23 [facility] Comment on above: Performed By: #### Remberto BC, CMP, 2498-4, 12296-7, 2857-1, TSHR #### [facility] ([id number]) [address], [address] [place] [address] IRONon 12-10-2024 Iron [Mass/Vol] 184 ug/dL Normal 50-212 [facility] Comment on above: Performed By: #### Remberto BC, CMP, 2498-4, 31500-3, 2857-1, TSHR #### [facility] ([id number]) [address], [address] [place] [address] Lipid 1996 panelon Cholesterol [Mass/Vol] 183 mg/dL Normal 150-200 [facility] Comment on above: Performed By: #### Remberto BC, CMP, 2498-4, 42740-4, 2857-1, TSHR #### [facility] ([id number]) [address], [address] [place] [address] Cholesterol in HDL [Mass/Vol] 38 mg/dL Low >39 [facility] Comment on above: Result Comment: HDL <40 mg/dL - High Risk HDL > or = 40mg/dL- Desirable HDL >60 mg/dL - Negative Risk Performed By: #### Remberto BC, CMP, 2498-4, 49270-1, 2857-1, TSHR #### [facility] ([id number]) [address], [address] [place] [address] Cholesterol in LDL [Mass/Vol] 121 mg/dL Normal <130 [facility] Comment on above: Result Comment: LDL <100 mg/dL - Desirable LDL >160 mg/dL - High Risk Performed By: #### C BC, CMP, 2498-4, 50551-3, 2857-1, TSHR #### [facility] ([id number]) [address], [address] [address] Cholesterol in VLDL [Mass/Vol] 24 mg/dL Normal 0-30 [facility] Comment on above: Performed By: #### C BC, CMP, 2498-4, 48512-7, 2857-1, TSHR #### [facility] ([id number]) [address], [address] [place] [address] CHOLESTEROL:HDL 4.8 Normal 1.0-5.0 [facility] Comment on above: Performed By: #### C BC, CMP, 2498-4, 55133-0, 2857-1, TSHR #### [facility] ([id number]) [address] [address] Triglyceride [Mass/Vol] 119 mg/dL Normal 27-150 [facility] Comment on above: Performed By: #### C BC, CMP, 2498-4, 63840-6, 2857-1, TSHR #### [facility] ([id number]) [address] [address] Prostate specific Ag [Mass/V ol]on 12-10-2024 PSA SCREEN 0.57 ng/mL Normal 0.00-4.00 [facility] Comment on above: Result Comment: The method used for this test is Graciela Shashi DXI chemiluminescent immunoassay. Values obtained by different assay methods cannot be used interchangeably. Performed By: #### C BC, CMP, 2498-4, 14954-2, 2857-1, TSHR #### [facility] ([id number]) [address] [address] TSH WITH REFLEXon 12-10-2024 TSH 1.34 uIU/mL Normal 0.49-4.67 [facility] Comment on above: Performed By: #### C BC, CMP, 2498-4, 00578-8, 2857-1, TSHR #### [facility] ([id number]) [address] [address] COMPLETE BLOOD COUNTon 09-11 Erythrocyte distribution width (RBC) [Ratio] 13.4 % Normal 11.5-15.0 [facility] Comment on above: Performed By: #### Remberto BC, CMP, 2857-1, TSHR #### [facility] ([id number]) [address] [address] Hematocrit (Bld) [Volume fraction] 47.4 % Normal 39-49 [facility] Comment on above: Performed By: #### Remberto BC, CMP, 2857-1, TSHR #### [facility] ([id number]) [address] [address] Hemoglobin (Bld) [Mass/Vol] 16.4 g/dL Normal 13.0-17.0 [facility] Comment on above: Performed By: #### C BC, CMP, 2857-1, TSHR #### [facility] ([id number]) [address] [address] MCH (RBC) [Entitic mass] 32.4 pg Normal 27-34 [facility] Comment on above: Performed By: #### C BC, CMP, 2857-1, TSHR #### [facility] ([id number]) [address], [address] [place] [address] MCHC (RBC) [Mass/Vol] 34.6 g/dL Normal 32-36 [facility] Comment on above: Performed By: #### C BC, CMP, 2857-1, TSHR #### [facility] ([id number]) [address], [address] [place] [address] MCV (RBC) [Entitic vol] 94 fL Normal 80-100 [facility] Comment on above: Performed By: #### C BC, CMP, 2857-1, TSHR #### [facility] ([id number]) [address], [address] [place] [address] Platelet mean volume (Bld) [Entitic vol] 9.4 fL Normal 7-12 [facility] Comment on above: Performed By: #### Remberto BC, CMP, 2857-1, TSHR #### [facility] ([id number]) [address], [address] [place] [address] Platelets (Bld) [#/Vol] 235 10*3/uL Normal 150-450 [facility] Comment on above: Performed By: #### Remberto BC, CMP, 2857-1, TSHR #### [facility] ([id number]) [address], [address] [place] [address] RBC COUNT 5.06 X10E12/L Normal 4.10-5.70 [facility] Comment on above: Performed By: #### C BC, CMP, 2857-1, TSHR #### [facility] ([id number]) [address], [address] [place] [address] WBC (Bld) [#/Vol] 7.0 10*3/uL Normal 4.0-11.0 [facility] Comment on above: Performed By: #### C BC, CMP, 2857-1, TSHR #### [facility] ([id number]) [address], [address] [place] [address] COMPREHENSIVE METABOLIC PANE Vern 09-11-2024 Albumin [Mass/Vol] 4.5 g/dL Normal 3.2-5.3 [facility] Comment on above: Performed By: #### C BC, CMP, 2857-1, TSHR #### [facility] ([id number]) [address], [address] [place] [address] ALP [Catalytic activity/Vol] 133 U/L High 39-130 [facility] Comment on above: Performed By: #### Remberto CRANDALL, CMP, 2857-1, TSHR #### [facility] ([id number]) [address], [address] [place] [address] ALT [Catalytic activity/Vol] 20 U/L Normal 0-40 [facility] Comment on above: Performed By: #### Remberto BC, CMP, 2857-1, TSHR #### [facility] ([id number]) [address], [address] [place] [address] Anion gap [Moles/Vol] 10 mmol/L Normal 5-15 [facility] Comment on above: Performed By: #### Remberto CRANDALL, CMP, 2857-1, TSHR #### [facility] ([id number]) [address], [address] [place] [address] AST [Catalytic activity/Vol] 26 U/L Normal 0-41 [facility] Comment on above: Performed By: #### Remberto BC, CMP, 2857-1, TSHR #### [facility] ([id number]) [address], [address] [place] [address] Bilirubin [Mass/Vol] 0.8 mg/dL Normal 0.3-1.2 [facility] Comment on above: Performed By: #### Remberto BC, CMP, 2857-1, TSHR #### [facility] ([id number]) [address], [address] [place] [address] Calcium [Mass/Vol] 9.6 mg/dL Normal 8.5-10.5 [facility] Comment on above: Performed By: #### Remberto CRANDALL, CMP, 2857-1, TSHR #### [facility] ([id number]) [address], [address] [place] [address] Chloride [Moles/Vol] 103 mmol/L Normal 98-109 [facility] Comment on above: Performed By: #### Remberto CRANDALL CMP, 2857-1, TSHR #### [facility] ([id number]) [address], [address] [place] [address] CO2 [Moles/Vol] 27 mmol/L Normal 22-32 [facility] Comment on above: Performed By: #### Remberto CRANDALL CMP, 2857-1, TSHR #### [facility] ([id number]) [address], [address] [place] [address] Creatinine [Mass/Vol] 1.05 mg/dL Normal 0.60-1.30 [facility] Comment on above: Result Comment: METH OD TRACEABLE TO IDMS STANDARD Performed By: #### Remberto CRANDALL CMP, 2857-1, TSHR #### [facility] ([id number]) [address], [address] [place] [address] GFR/1.73 sq M.predicted among non-blacks MDRD (S/P/Bld) [Vol rate/Area] 83 mL/min/{1.73_m2} Normal >59 [facility] Comment on above: Result Comment: Reported eGFR is based on the CKD-EPI 2020 equation that does not use a race coefficient. Performed By: #### Remberto CRANDALL, CMP, 2857-1, TSHR #### [facility] ([id number]) [address], [address] [place] [address] Glucose [Mass/Vol] 87 mg/dL Normal 65-99 [facility] Comment on above: Performed By: #### Remberto CRANDALL CMP, 2857-1, TSHR #### [facility] ([id number]) [address], [address] [place] [address] Potassium [Moles/Vol] 3.9 mmol/L Normal 3.5-5.0 [facility] Comment on above: Performed By: #### Remberto CRANDALL CMP, 2857-1, TSHR #### [facility] ([id number]) [address], [address] [place] [address] Protein [Mass/Vol] 7.3 g/dL Normal 6.0-8.0 [facility] Comment on above: Performed By: #### Remberto CRANDALL CMP, 2857-1, TSHR #### [facility] ([id number]) [address], [address] [place] [address] Sodium [Moles/Vol] 140 mmol/L Normal 134-146 [facility] Comment on above: Performed By: #### Remberto CRANDALL CMP, 2857-1, TSHR #### [facility] ([id number]) [address], [address] [place] [address] Urea nitrogen [Mass/Vol] 6 mg/dL Normal 5-23 [facility] Comment on above: Performed By: #### Remberto CRANDALL CMP, 2857-1, TSHR #### [facility] ([id number]) [address], [address] [place] [address] Prostate specific Ag [Mass/V ol]on 09-11-2024 PSA SCREEN 0.71 ng/mL Normal 0.00-4.00 [facility] Comment on above: Result Comment: The method used for this test is Graciela Shashi DXI chemiluminescent immunoassay. Values obtained by different assay methods cannot be used interchangeably. Performed By: #### Remberto CRANDALL CMP, 2857-1, TSHR #### [facility] ([id number]) [address], [address] [place] [address] TSH WITH REFLEXon 09-11-2024 TSH 1.29 uIU/mL Normal 0.49-4.67 [facility] Comment on above: Performed By: #### C BC, CMP, 2857-1, TSHR #### [facility] ([id number]) [address] [facility], [address] [place] [address] CBC AND AUTO DIFFon 05-15-20 ABSOLUTE BASOPHIL 0.1 X10E9/L Normal 0.0-0.2 [facility] Comment on above: Performed By: #### C BCA, CMP, 3040-3, 55780-9 #### [facility] ([id number]) [address] [place] [address] ABSOLUTE NEUTROPHIL 5.7 X10E9/L Normal 1.5-6.6 [facility] Comment on above: Performed By: #### C BCA, CMP, 3040-3, 43494-3 #### [facility] ([id number]) [address] [place] [address] Basophils/100 WBC (Bld) 0.7 % Normal [facility] Comment on above: Performed By: #### C BCA, CMP, 3040-3, 76682-9 #### [facility] ([id number]) [address] [place] [address] Eosinophils (Bld) [#/Vol] 0.4 10*3/uL Normal 0.0-0.4 [facility] Comment on above: Performed By: #### C BCA, CMP, 3040-3, 59648-9 #### [facility] ([id number]) [address] [place] [address] Eosinophils/100 WBC (Bld) 4.9 % Normal [facility] Comment on above: Performed By: #### C BCA, CMP, 3039-3, 49935-8 #### [facility] ([id number]) [address] [place] [address] Erythrocyte distribution width (RBC) [Ratio] 12.3 % Normal 11.5-15.0 [facility] Comment on above: Performed By: #### C ARASH, [facility], 3039-3, 32106-0 #### [facility] ([id number]) [address] [place] [address] Hematocrit (Bld) [Volume fraction] 41.8 % Normal 39-49 [facility] Comment on above: Performed By: #### C ALEXANDRIA ANTOINE, 3, 31552-6 #### [facility] ([id number]) [address] [place] [address] Hemoglobin (Bld) [Mass/Vol] 15.1 g/dL Normal 13.0-17.0 [facility] Comment on above: Performed By: #### C ARASH [facility], 3, 33931-3 #### [facility] ([id number]) [address] [place] [address] Lymphocytes (Bld) [#/Vol] 1.4 10*3/uL Normal 1.0-3.5 [facility] Comment on above: Performed By: #### C ARASH CMP, 3043, 87377-7 #### [facility] ([id number]) [address] [place] [address] 70641 Lymphocytes/100 WBC (Bld) 17.3 % Normal [facility] Comment on above: Performed By: #### C ARASH, CMP, 3, 24774-7 #### [facility] ([id number]) [address] [place] [address] 99121 MCH (RBC) [Entitic mass] 32.3 pg Normal 27-34 [facility] Comment on above: Performed By: #### C ALEX[place] ANTOINE, 3040-3, 11489-1 #### [facility] ([id number]) [address] [place] [address] 92817 MCHC (RBC) [Mass/Vol] 36.0 g/dL Normal 32-36 [facility] Comment on above: Performed By: #### Remberto ANTOINE CMP, 3039-3, 66817-6 #### [facility] ([id number]) [address] [place] [address] 73933 MCV (RBC) [Entitic vol] 90 fL Normal 80-100 [facility] Comment on above: Performed By: #### Remberto ANTOINE CMP, 0-3, 73948-8 #### [facility] ([id number]) [address] [place] [address] 56286 Monocytes (Bld) [#/Vol] 0.6 10*3/uL Normal 0-0.9 [facility] Comment on above: Performed By: #### Remberto ANTOINE CMP, 3, 44179-9 #### [facility] ([id number]) [address] [place] [address] 65139 Monocytes/100 WBC (Bld) 7.6 % Normal [facility] Comment on above: Performed By: #### Remberto ANTOINE CMP, 3043, 94240-8 #### [facility] ([id number]) [address] [place] [address] 93334 Neutrophils/100 WBC (Bld) 69.5 % Normal [facility] Comment on above: Performed By: #### Remberto ANTOINE CMP, 3039-3, 84382-6 #### [facility] ([id number]) [address] [place] [address] 83937 Platelet mean volume (Bld) [Entitic vol] 8.2 fL Normal 7-12 [facility] Comment on above: Performed By: #### C BCA, CMP, 3040-3, 03791-0 #### [facility] ([id number]) [address] [place] [address] 10270 Platelets (Bld) [#/Vol] 254 10*3/uL Normal 150-450 [facility] Comment on above: Performed By: #### C BCA, CMP, 3040-3, 13445-6 #### [facility] ([id number]) [address] [place] [address] 06974 RBC COUNT 4.66 X10E12/L Normal 4.10-5.70 [facility] Comment on above: Performed By: #### C BCA, CMP, 3040-3, 73062-8 #### [facility] ([id number]) [address] [place] [address] 61448 WBC (Bld) [#/Vol] 8.1 10*3/uL Normal 4.0-11.0 [facility] Comment on above: Performed By: #### C BCA, CMP, 3040-3, 45647-7 #### [facility] ([id number]) [address] [place] [address] 68393 COMPREHENSIVE METABOLIC PANE Vern 05-15-2024 Albumin [Mass/Vol] 4.5 g/dL Normal 3.2-5.3 [facility] Comment on above: Performed By: #### C BCA, CMP, 3040-3, 13674-0 #### [facility] ([id number]) [address] [place] [address] 99497 ALP [Catalytic activity/Vol] 105 U/L Normal 39-130 [facility] Comment on above: Performed By: #### C BCA, CMP, 3040-3, 73519-1 #### [facility] ([id number]) [address] [place] [address] 46783 ALT [Catalytic activity/Vol] 33 U/L Normal 0-40 [facility] Comment on above: Performed By: #### C BCA, CMP, 3040-3, 55751-8 #### [facility] ([id number]) [address] [place] [address] 22288 Anion gap [Moles/Vol] 9 mmol/L Normal 5-15 [facility] Comment on above: Performed By: #### C BCA, CMP, 3040-3, 54416-1 #### [facility] ([id number]) [address] [place] [address] 11927 AST [Catalytic activity/Vol] 29 U/L Normal 0-41 [facility] Comment on above: Performed By: #### C BCA, CMP, 3040-3, 87459-8 #### [facility] ([id number]) [address] [place] [address] 61379 Bilirubin [Mass/Vol] 0.9 mg/dL Normal 0.3-1.2 [facility] Comment on above: Performed By: #### C BCA, CMP, 3040-3, 85606-8 #### [facility] ([id number]) [address] [place] [address] 51705 Calcium [Mass/Vol] 9.1 mg/dL Normal 8.5-10.5 [facility] Comment on above: Performed By: #### C BCA, CMP, 3040-3, 90540-5 #### [facility] ([id number]) [address] [place] [address] 92780 Chloride [Moles/Vol] 96 mmol/L Low 98-109 [facility] Comment on above: Performed By: #### C BCA, CMP, 3040-3, 18002-9 #### [facility] ([id number]) [address] [place] [address] 29939 CO2 [Moles/Vol] 24 mmol/L Normal 22-32 [facility] Comment on above: Performed By: #### C ALEX[place]RI[place] ANTOINE, 3040-3, 34760-6 #### [facility] ([id number]) [address] [place] [address] 02413 Creatinine [Mass/Vol] 0.91 mg/dL Normal 0.70-1.20 [facility] Comment on above: Result Comment: METH OD TRACEABLE TO IDMS STANDARD Performed By: #### C ALEX[place]RI[place] ANTOINE, 3040-3, 99613-2 #### [facility] ([id number]) [address] [place] [address] 21347 eGFR (CKD-EPI) NON-RACE DEPENDENT >90 Normal >59 [facility] Comment on above: Result Comment: Reported eGFR is based on the CKD-EPI 2020 equation that does not use a race coefficient. Performed By: #### C ALEXANDRI[place] ANTOINE, 3040-3, 79861-9 #### [facility] ([id number]) [address] [place] [address] 34613 Glucose [Mass/Vol] 97 mg/dL Normal 65-99 [facility] Comment on above: Performed By: #### C ALEXANDRI[place] ANTOINE, 3040-3, 75808-0 #### [facility] ([id number]) [address] [place] [address] 28509 Potassium [Moles/Vol] 3.2 mmol/L Low 3.5-5.0 [facility] Comment on above: Performed By: #### C ALEXANDRIA ANTOINE, 3040-3, 76902-7 #### [facility] ([id number]) [address] [place] [address] 29071 Protein [Mass/Vol] 7.2 g/dL Normal 6.0-8.0 [facility] Comment on above: Performed By: #### C ALEXANDRIA ANTOINE, 3040-3, 33982-4 #### [facility] ([id number]) [address] [place] [address] 34044 Sodium [Moles/Vol] 129 mmol/L Low 134-146 [facility] Comment on above: Performed By: #### C BCA, CMP, 3040-3, 67135-3 #### [facility] ([id number]) [address] [place] [address] 03003 Urea nitrogen [Mass/Vol] 15 mg/dL Normal 5-23 [facility] Comment on above: Performed By: #### C BCA, CMP, 3040-3, 79887-4 #### [facility] ([id number]) [address] [place] [address] 95126 LIPASEon 05-15-2024 Lipase [Catalytic activity/Vol] 37 U/L Normal 17-40 [facility] Comment on above: Performed By: #### C BCA, CMP, 3040-3, 05257-8 #### [facility] ([id number]) [address] [place] [address] 88997 Lactate (P cherie) [Moles/Vol]o n 05-15-2024 LACTATE W/REFLEX 1.0 mmol/L Normal 0.4-2.0 [facility] Comment on above: Result Comment: Result did not trigger repeat Lactate, re-order if needed. Performed By: #### 3 2133-1 #### [facility] ([id number]) [address] [place] [address] 80510 Troponin I.cardiac High sens itivity method [Mass/Vol]on 05-15-2024 1 HOUR TROP I, HIGH SENSITIVITY 3 ng/L Normal <21 [facility] Comment on above: Performed By: #### 8 9579-7 #### [facility] ([id number]) [address] [place] [address] 85494 TROPONIN I, HIGH SENSITIVITY 3 ng/L Normal <21 [facility] Comment on above: Performed By: #### C BCA, CMP, 3040-3, 95986-4 #### [facility] ([id number]) [address] [facility] [place] [address] Bacteria [Presence] in Urine by AutomatedOrdered By: Nish Davidson on 03-03-2024 Bacteria Auto Ql (U) None seen [HPF] None Seen [facility] Basophils Auto (Bld) [#/Vol] Ordered By: James De on 03-03-2024 Basophils (Bld) [#/Vol] 0.0 10*3/uL 0.0-0.[address] [facility] Basophils/100 WBC Auto (Bld) Ordered By: James De on 03-03-2024 Basophils/100 WBC (Bld) 0.4 % . F [facility] Bilirubin Test strip Ql (U)O rdered By: Nish Davidson on 03-03-2024 Bilirubin Ql (U) Negative Negative [facility] Calcium [Mass/volume] in Ser um or PlasmaOrdered By: James De on 03-03-2024 Calcium [Mass/Vol] 9.5 mg/dL 8.6-10.3 [facility] Carbon dioxide, total [Moles /volume] in Serum or PlasmaOrdered By: James De on 03-03-2024 CO2 [Moles/Vol] 25.3 mmol/L 21.0-31.0 [facility] Chloride [Moles/volume] in S dereje or PlasmaOrdered By: James De on 03-03-2024 Chloride [Moles/Vol] 102 mmol/L 98-107 [facility] Color Auto (U)Ordered By: Dimitry Davidson on 03-03-2024 Color (U) Yellow Yellow [facility] Creatinine [Mass/volume] in Serum or PlasmaOrdered By: James De on 03-03-2024 Creatinine [Mass/Vol] 1.18 mg/dL 0.70-1.30 [facility] Eosinophils Auto (Bld) [#/Vo l]Ordered By: James De on 03-03-2024 Eosinophils (Bld) [#/Vol] 0.2 10*3/uL 0.0-0.[address] [facility] Eosinophils/100 WBC Auto (Bl d)Ordered By: James De on 03-03-2024 Eosinophils/100 WBC (Bld) 2.6 % . [facility] Epithelial cells.squamous [# /area] in Urine sediment by Automated countOrdered By: Nish Davidson on 03-03-2024 Epithelial cells.squamous Auto (Urine sed) [#/Area] 1-2 [HPF] 0-[address] [facility] Erythrocyte distribution wid th Auto (RBC) [Ratio]Ordered By: James De on 03-03-2024 Erythrocyte distribution width (RBC) [Ratio] 12.6 % 12.0-14.[address] [facility] Erythrocytes [#/area] in Uri ne sediment by Automated countOrdered By: Nish Davidson on 03-03-2024 RBC Auto (Urine sed) [#/Area] None seen [HPF] 0-[address] [facility] Glucose [Mass/volume] in Ser um or PlasmaOrdered By: James De on 03-03-2024 Glucose [Mass/Vol] 83 mg/dL 70-100 [facility] Comment on above: ADA recommended refe rence rangeRandom Glucose Reference Range is dependent on time and content of last meal. Glucose of more than 200 mg/dL in a nonstressed, ambulatory subject supports the diagnosis of Diabetes Mellitus. Glucose [Mass/volume] in Uri ne by Test stripOrdered By: Nish Davidson on 03-03-2024 Glucose Test strip (U) [Mass/Vol] Normal mg/dL Normal [facility] Hematocrit Auto (Bld) [Volum e fraction]Ordered By: James De on 03-03-2024 Hematocrit (Bld) [Volume fraction] 52.6 % High 38.8-50.[address] [facility] Hemoglobin Test strip Ql (U) Ordered By: Nish Davidson on 03-03-2024 Hemoglobin Ql (U) Negative Negative [facility] Hemoglobin [Mass/volume] in BloodOrdered By: James De on 03-03-2024 Hemoglobin (Bld) [Mass/Vol] 18.5 g/dL High 13.0-17.[address] [facility] Hyaline casts [#/area] in Ur ine sediment by Automated countOrdered By: Nish Davidson on 03-03-2024 Hyaline casts Auto (Urine sed) [#/Area] 0-8 [LPF] 0-[address] [facility] Ketones Test strip Ql (U)Ord ered By: Nish Davidson on 03-03-2024 Ketones Ql (U) 2+ High Negative [facility] Leukocyte esterase [Presence ] in Urine by Test stripOrdered By: Nish Davidson on 03-03-2024 Leukocyte esterase Test strip Ql (U) Negative Negative [facility] Leukocytes [#/area] in Urine sediment by Automated countOrdered By: Nish Davidson on 03-03-2024 WBC Auto (Urine sed) [#/Area] 1-2 [HPF] 0-[address] [facility] Leukocytes [#/volume] correc ernst for nucleated erythrocytes in Blood by Automated counOrdered By: James De on 03-03-2024 WBC corrected for nucl RBC Auto (Bld) [#/Vol] 9.0 10*3/uL 4.1-10.[address] [facility] Lymphocytes Auto (Bld) [#/Vo l]Ordered By: James De on 03-03-2024 Lymphocytes (Bld) [#/Vol] 1.2 10*3/uL 1.00-4.[address] [facility] Lymphocytes/100 WBC Auto (Bl d)Ordered By: James De on 03-03-2024 Lymphocytes/100 WBC (Bld) 13.4 % . [facility] MCH Auto (RBC) [Entitic mass ]Ordered By: James De on 03-03-2024 MCH (RBC) [Entitic mass] 32.8 pg 27.5-35.[address] [facility] MCHC Auto (RBC) [Mass/Vol]Or dered By: James De on 03-03-2024 MCHC (RBC) [Mass/Vol] 35.1 g/dL 32.5-35.6 [facility] MCV Auto (RBC) [Entitic vol] Ordered By: James De on 03-03-2024 MCV (RBC) [Entitic vol] 93.4 fL 83.5-101 F [facility] Monocyte distribution width [Entitic volume] in Blood by AutomatedOrdered By: James De on 03-03-2024 Monocyte distribution width Auto (Bld) [Entitic vol] 17.08 % 0.00-20.[address] [facility] Monocytes Auto (Bld) [#/Vol] Ordered By: James De on 03-03-2024 Monocytes (Bld) [#/Vol] 0.8 10*3/uL 0.0-0.[address] [facility] Monocytes/100 WBC Auto (Bld) Ordered By: James De on 03-03-2024 Monocytes/100 WBC (Bld) 8.7 % . F [facility] Mucus [Presence] in Urine by AutomatedOrdered By: Nish Davidson on 03-03-2024 Mucus Auto Ql (U) 1+ [LPF] Abnormal [facility] Neutrophils Auto (Bld) [#/Vo l]Ordered By: James De on 03-03-2024 Neutrophils (Bld) [#/Vol] 6.7 10*3/uL 1.8-7.[address] [facility] Neutrophils/100 WBC Auto (Bl d)Ordered By: James De on 03-03-2024 Neutrophils/100 WBC (Bld) 74.9 % . [facility] Nitrite Test strip Ql (U)Ord ered By: Nish Davidson on 03-03-2024 Nitrite Ql (U) Negative Negative [facility] No Panel InformationOrdered By: James De on 03-03-2024 Estimated GFR (CKD-EPI) > 60.0 mL/Min [facility] Creatinine Clearance (Chem 68.[address] [facility] Nucleated erythrocytes [Pres ence] in Blood by Automated countOrdered By: James De on 03-03-2024 Nucleated RBC Auto Ql (Bld) 0.4 /100{WBC} 0-0.[address] [facility] Platelet adequacy [Presence] in Blood by Light microscopyOrdered By: James De on 03-03-2024 Platelets LM Ql (Bld) Normal Normal [facility] Platelet mean volume Auto (B ld) [Entitic vol]Ordered By: James De on 03-03-2024 Platelet mean volume (Bld) [Entitic vol] 8.4 fL 6.6-10.[address] [facility] Platelet morphology finding [Identifier] in BloodOrdered By: James De on 03-03-2024 Platelet morphology finding Nom (Bld) Normal Normal [facility] Platelets Auto (Bld) [#/Vol] Ordered By: James De on 03-03-2024 Platelets (Bld) [#/Vol] 207 10*3/uL 150-[address] [facility] Potassium [Moles/volume] in Serum or PlasmaOrdered By: James De on 03-03-2024 Potassium [Moles/Vol] 3.7 mmol/L 3.5-5.1 [facility] Protein Test strip (U) [Mass /Vol]Ordered By: Nish Davidson on 03-03-2024 Protein (U) [Mass/Vol] Trace mg/dL High Negative F [facility] RBC Auto (Bld) [#/Vol]Ordere d By: James De on 03-03-2024 RBC (Bld) [#/Vol] 5.64 10*6/uL High 3.90-5.60 [facility] RBC morphologyOrdered By: Asad De on 03-03-2024 RBC morphology finding Nom (Bld) Normal Normal [facility] Serum or plasma anion gap de terminationOrdered By: James De on 03-03-2024 Anion gap [Moles/Vol] 12.4 mmol/L 6.0-15.0 [facility] Sodium [Moles/volume] in Ser um or PlasmaOrdered By: James De on 03-03-2024 Sodium [Moles/Vol] 136 mmol/L 136-145 [facility] Specific gravity Test strip (U) [Rel density]Ordered By: Nish Davidson on 03-03-2024 Specific gravity (U) [Rel density] 1.015 1.001-1.[address] [facility] Transitional cells [#/area] in Urine by Computer assisted methodOrdered By: Nish Davidson on 03-03-2024 Transitional cells Computer assisted (U) [#/Area] 1-2 [HPF] High 0-[address] [facility] Urea nitrogen [Mass/volume] in Serum or PlasmaOrdered By: James De on 03-03-2024 Urea nitrogen [Mass/Vol] 8 mg/dL 7-[address] [facility] Urine appearanceOrdered By: Nish Davidson on 03-03-2024 Appearance (U) Clear Clear [facility] Urobilinogen Test strip (U) [Mass/Vol]Ordered By: Nish Davidson on 03-03-2024 Urobilinogen (U) [Mass/Vol] Normal mg/dL Normal [facility] WBC Auto (Bld) [#/Vol]Ordere d By: James De on 03-03-2024 WBC (Bld) [#/Vol] 9.0 10*3/uL 4.1-10.5 [facility] pH Test strip (U)Ordered By: Nish Davidson on 03-03-2024 pH (U) 6.0 [pH] 5.0-9.[address] [facility] Surgical Pathologyon 024 Surgical Pathology Normal [facility] Comment on above: Result Comment: [facility] [address] [place] [address] Surgical Pathology Consultation Patient Name:CHAI ARNOLD:1970 (Age: 53)Gender:MTaken:4Reported:02/22/2024hysician(s):Jennyfer Augustin MD ([phone])Copy To: Rec. #:[id number]: #[id number] Final Pathologic Diagnosis 1. Colon polyp 55cm: Hyperplastic polyp. 2. Colon polyp 35cm: Tubular adenoma. Report Electronically Signed Out 02/22/2024Keren Bee MD Interpretation performed at [facility], [address] [place], [address], License number: [id number]. Clinical History Change in bowel habits. Gross Description 1. Received in formalin labeled, CATALINA, 55 cm is a mccray-richardson 0.3 cm soft tissue.. The specimen is filtered and entirely submitted in a single cassette. (1, ns, [id number], m8) SM 2. Received in formalin labeled, FRANCIAZ, 35 cm is a pale richardson 0.3 cm the specimen is filtered and entirely submitted in a single cassette. (1, ns, [id number], m8) slm/02/20/2024GR Specimen(s) Received 1: Colon polyp 55cm 2: Colon polyp 35cm Fee Codes(s): 1; 10528 2; 37153 Alanine aminotransferase [En zymatic activity/volume] in Serum or PlasmaOrdered By: Jennyfer Winkler on 01-29-2024 ALT [Catalytic activity/Vol] 24 U/L 7-[address] [facility] Albumin [Mass/volume] in Ser um or Plasma by Bromocresol green (BCG) dye binding methoOrdered By: Jennyfer Winkler on 01-29-2024 Albumin BCG dye [Mass/Vol] 4.9 g/dL 3.5-5.[address] [facility] Alkaline phosphatase [Enzyma tic activity/volume] in Serum or PlasmaOrdered By: Jennyfer Winkler on 01-29-2024 ALP [Catalytic activity/Vol] 96 U/L 34-[address] [facility] Amylase [Enzymatic activity/ volume] in Serum or PlasmaOrdered By: Jennyfer Winkler on 01-29-2024 Amylase [Catalytic activity/Vol] 47 U/L 29-[address] [facility] Aspartate aminotransferase [ Enzymatic activity/volume] in Serum or PlasmaOrdered By: Jennyfer Winkler on 01-29-2024 AST [Catalytic activity/Vol] 21 U/L 13-[address] [facility] Basophils Auto (Bld) [#/Vol] Ordered By: Jennyfer Winkler on 01-29-2024 Basophils (Bld) [#/Vol] N/A F [facility] Basophils/100 WBC Auto (Bld) Ordered By: Jennyfer Winkler on 01-29-2024 Basophils/100 WBC (Bld) N/A F [facility] Bilirubin Test strip Ql (U)O rdered By: Jennyfer Winkler on 01-29-2024 Bilirubin Ql (U) Negative Negative [facility] Bilirubin.direct [Mass/volum e] in Serum or PlasmaOrdered By: Jennyfer Winkler on 01-29-2024 Bilirubin.direct [Mass/Vol] 0.10 mg/dL 0.03-0.[address] [facility] Bilirubin.total [Mass/volume ] in Serum or PlasmaOrdered By: Jennyfer Winkler on 01-29-2024 Bilirubin [Mass/Vol] 0.8 mg/dL 0.3-1.0 [facility] Calcium [Mass/volume] in Ser um or PlasmaOrdered By: Jennyfer Winkler on 01-29-2024 Calcium [Mass/Vol] 10.2 mg/dL 8.6-10.3 [facility] Carbon dioxide, total [Moles /volume] in Serum or PlasmaOrdered By: Jennyfer Winkler on 01-29-2024 CO2 [Moles/Vol] 26.4 mmol/L 21.0-31.0 [facility] Chloride [Moles/volume] in S dereje or PlasmaOrdered By: Jennyfer Winkler on 01-29-2024 Chloride [Moles/Vol] 98 mmol/L 98-107 [facility] Color Auto (U)Ordered By: Ella Winkler on 01-29-2024 Color (U) Colorless Yellow [facility] Creatinine [Mass/volume] in Serum or PlasmaOrdered By: Jennyfer Winkler on 01-29-2024 Creatinine [Mass/Vol] 1.07 mg/dL 0.70-1.30 [facility] Eosinophils Auto (Bld) [#/Vo l]Ordered By: Jennyfer Winkler on 01-29-2024 Eosinophils (Bld) [#/Vol] N/A [facility] Eosinophils/100 WBC Auto (Bl d)Ordered By: Jennyfer Winkler on 01-29-2024 Eosinophils/100 WBC (Bld) N/A [facility] Eosinophils/100 WBC Manual c nt (Bld)Ordered By: Jennyfer Winkler on 01-29-2024 Eosinophils/100 WBC (Bld) 5 % High 1-[address] [facility] Erythrocyte distribution wid th Auto (RBC) [Ratio]Ordered By: Jennyfer Winkler on 01-29-2024 Erythrocyte distribution width (RBC) [Ratio] 12.1 % 12.0-14.[address] [facility] Giant platelets/100 leukocyt es [Ratio] in Blood by Manual countOrdered By: Jennyfer Winkler on 01-29-2024 Giant platelets/100 WBC Manual cnt (Bld) [Ratio] 1 /100{WBC} [facility] Globulin Calc (S) [Mass/Vol] Ordered By: Jennyfer Winkler on 01-29-2024 Globulin (S) [Mass/Vol] 3.1 g/dL F [facility] Glucose [Mass/volume] in Ser um or PlasmaOrdered By: Jennyfer Winkler on 01-29-2024 Glucose [Mass/Vol] 103 mg/dL High 70-100 [facility] Comment on above: ADA recommended refe rence rangeRandom Glucose Reference Range is dependent on time and content of last meal. Glucose of more than 200 mg/dL in a nonstressed, ambulatory subject supports the diagnosis of Diabetes Mellitus. Glucose [Mass/volume] in Uri ne by Test stripOrdered By: Jennyfer Winkler on 01-29-2024 Glucose Test strip (U) [Mass/Vol] Normal mg/dL Normal [facility] Hematocrit Auto (Bld) [Volum e fraction]Ordered By: Jennyfer Winkler on 01-29-2024 Hematocrit (Bld) [Volume fraction] 54.1 % High 38.8-50.[address] [facility] Hemoglobin Test strip Ql (U) Ordered By: Jennyfer Winkler on 01-29-2024 Hemoglobin Ql (U) Negative Negative [facility] Hemoglobin [Mass/volume] in BloodOrdered By: Jennyfer Winkler on 01-29-2024 Hemoglobin (Bld) [Mass/Vol] 18.9 g/dL High 13.0-17.[address] [facility] Ketones Test strip Ql (U)Ord ered By: Jennyfer Winkler on 01-29-2024 Ketones Ql (U) Negative Negative [facility] Leukocyte esterase [Presence ] in Urine by Test stripOrdered By: Jennyfer Winkler on 01-29-2024 Leukocyte esterase Test strip Ql (U) Negative Negative [facility] Leukocytes [#/volume] correc ernst for nucleated erythrocytes in Blood by Automated counOrdered By: Jennyfer Winkler on 01-29-2024 WBC corrected for nucl RBC Auto (Bld) [#/Vol] 6.8 10*3/uL 4.1-10.[address] [facility] Lipase [Enzymatic activity/v olume] in Serum or PlasmaOrdered By: Jennyfer Winkler on 01-29-2024 Lipase [Catalytic activity/Vol] 29.0 U/L 11.0-82.[address] [facility] Lymphocytes Auto (Bld) [#/Vo l]Ordered By: Jennyfer Winkler on 01-29-2024 Lymphocytes (Bld) [#/Vol] N/A [facility] Lymphocytes/100 WBC Auto (Bl d)Ordered By: Jennyfer Winkler on 01-29-2024 Lymphocytes/100 WBC (Bld) N/A [facility] Lymphocytes/100 WBC Manual c nt (Bld)Ordered By: Jennyfer Winkler on 01-29-2024 Lymphocytes/100 WBC (Bld) 28 % 18-[address] [facility] MCH Auto (RBC) [Entitic mass ]Ordered By: Jennyfer Winkler on 01-29-2024 MCH (RBC) [Entitic mass] 32.4 pg 27.5-35.[address] [facility] MCHC Auto (RBC) [Mass/Vol]Or dered By: Jennyfer Winkler on 01-29-2024 MCHC (RBC) [Mass/Vol] 35.0 g/dL 32.5-35.6 [facility] MCV Auto (RBC) [Entitic vol] Ordered By: Jennyfer Winkler on 01-29-2024 MCV (RBC) [Entitic vol] 92.7 fL 83.5-101 F [facility] Monocyte distribution width [Entitic volume] in Blood by AutomatedOrdered By: Jennyfer Winkler on 01-29-2024 Monocyte distribution width Auto (Bld) [Entitic vol] 18.41 % 0.00-20.[address] [facility] Monocytes Auto (Bld) [#/Vol] Ordered By: Jennyfer Winkler on 01-29-2024 Monocytes (Bld) [#/Vol] N/A F [facility] Monocytes/100 WBC Auto (Bld) Ordered By: Jennyfer Winkler on 01-29-2024 Monocytes/100 WBC (Bld) N/A F [facility] Monocytes/100 WBC Manual cnt (Bld)Ordered By: Jennyfer Winkler on 01-29-2024 Monocytes/100 WBC (Bld) 4 % 2-11 [facility] Neutrophils Auto (Bld) [#/Vo l]Ordered By: Jennyfer Winkler on 01-29-2024 Neutrophils (Bld) [#/Vol] N/A [facility] Neutrophils/100 WBC Auto (Bl d)Ordered By: Jennyfer Winkler on 01-29-2024 Neutrophils/100 WBC (Bld) N/A [facility] Nitrite Test strip Ql (U)Ord ered By: Jennyfer Winkler on 01-29-2024 Nitrite Ql (U) Negative Negative [facility] No Panel InformationOrdered By: Jennyfer Winkler on 01-29-2024 Estimated GFR (CKD-EPI) > 60.0 mL/Min [facility] Creatinine Clearance (Chem 83.[address] [facility] Nucleated erythrocytes [Pres ence] in Blood by Automated countOrdered By: Jennyfer Winkler on 01-29-2024 Nucleated RBC Auto Ql (Bld) N/A [facility] Platelet adequacy [Presence] in Blood by Light microscopyOrdered By: Jennyfer Winkler on 01-29-2024 Platelets LM Ql (Bld) Normal Normal [facility] Platelet mean volume Auto (B ld) [Entitic vol]Ordered By: Jennyfer Winkler on 01-29-2024 Platelet mean volume (Bld) [Entitic vol] 8.1 fL 6.6-10.[address] [facility] Platelet morphology finding [Identifier] in BloodOrdered By: Jennyfer Winkler on 01-29-2024 Platelet morphology finding Nom (Bld) Normal Normal [facility] Platelets Auto (Bld) [#/Vol] Ordered By: Jennyfer Winkler on 01-29-2024 Platelets (Bld) [#/Vol] 245 10*3/uL 150-[address] [facility] Potassium [Moles/volume] in Serum or PlasmaOrdered By: Jennyfer Winkler on 01-29-2024 Potassium [Moles/Vol] 3.9 mmol/L 3.5-5.1 [facility] Protein Test strip (U) [Mass /Vol]Ordered By: Jennyfer Winkler on 01-29-2024 Protein (U) [Mass/Vol] Negative Negative [facility] Protein [Mass/volume] in Ser um or PlasmaOrdered By: Jennyfer Winkler on 01-29-2024 Protein [Mass/Vol] 8.0 g/dL 6.4-8.9 [facility] RBC Auto (Bld) [#/Vol]Ordere d By: Jennyfer Winkler on 01-29-2024 RBC (Bld) [#/Vol] 5.83 10*6/uL High 3.90-5.60 [facility] RBC morphologyOrdered By: Ella Winkler on 01-29-2024 RBC morphology finding Nom (Bld) Normal Normal [facility] Segmented neutrophils/100 WB C Manual cnt (Bld)Ordered By: Jennyfer Winkler on 01-29-2024 Segmented neutrophils/100 WBC (Bld) 58 % 50-[address] [facility] Serum or plasma albumin/glob ulin mass ratioOrdered By: Jennyfer Winkler on 01-29-2024 Albumin/Globulin [Mass ratio] 1.6 {ratio} [facility] Serum or plasma anion gap de terminationOrdered By: Jennyfer Winkler on 01-29-2024 Anion gap [Moles/Vol] 10.5 mmol/L 6.0-15.0 [facility] Serum or plasma non-glucuron idated bilirubin measurement (mass/volume)Ordered By: Jennyfer Winkler on 01-29-2024 Bilirubin.indirect [Mass/Vol] 0.7 mg/dL [facility] Sodium [Moles/volume] in Ser um or PlasmaOrdered By: Jennyfer Winkler on 01-29-2024 Sodium [Moles/Vol] 131 mmol/L Low 136-145 [facility] Specific gravity Test strip (U) [Rel density]Ordered By: Jennyfer Winkler on 01-29-2024 Specific gravity (U) [Rel density] 1.003 1.001-1.[address] [facility] Urea nitrogen [Mass/volume] in Serum or PlasmaOrdered By: Jennyfer Winkler on 01-29-2024 Urea nitrogen [Mass/Vol] 6 mg/dL Low 7-[address] [facility] Urine appearanceOrdered By: Jennyfer Winkler on 01-29-2024 Appearance (U) Clear Clear [facility] Urobilinogen Test strip (U) [Mass/Vol]Ordered By: Jennyfer Winkler on 01-29-2024 Urobilinogen (U) [Mass/Vol] Normal mg/dL Normal [facility] Variant lymphocytes/100 WBC Manual cnt (Bld)Ordered By: Jennyfer Winkler on 01-29-2024 Variant lymphocytes/100 WBC (Bld) 6 % 0-[address] [facility] WBC Auto (Bld) [#/Vol]Ordere d By: Jennyfer Winkler on 01-29-2024 WBC (Bld) [#/Vol] 6.8 10*3/uL 4.1-10.5 [facility] pH Test strip (U)Ordered By: Jennyfer Winkler on 01-29-2024 pH (U) 7.5 [pH] 5.0-9.[address] [facility] CBC AUTO DIFFon 03-26-2022 BASO # 0.1 103/ul Normal 0.0-0.1 [facility] Comment on above: Performed By: #### C BC #### [facility] [address] [address] [address] Pravin Travis Basophils/100 WBC (Bld) 0.7 % Normal 0.2-2.0 [facility] Comment on above: Performed By: #### C BC #### [facility] [address] [address] [address] Pravin Travis EO # 0.6 103/ul Normal 0.0-0.7 [facility] Comment on above: Performed By: #### C BC #### [facility] [address] [address] [address] Pravin Travis Eosinophils/100 WBC (Bld) 7.4 % Critically high 0.9-7.0 [facility] Comment on above: Performed By: #### C BC #### [facility] [address] [address] [address] Pravin Travis Erythrocyte distribution width (RBC) [Ratio] 12.3 % Normal 11.0-15.0 [facility] Comment on above: Performed By: #### C BC #### [facility] [address] [place] [address] Dr. Pravin Travis Hematocrit (Bld) [Volume fraction] 47.2 % Normal 42.0-54.0 [facility] Comment on above: Performed By: #### C BC #### [facility] [address] [address] [address] Pravin Travis Hemoglobin (Bld) [Mass/Vol] 16.2 g/dL Normal 14.0-18.0 [facility] Comment on above: Performed By: #### C BC #### [facility] [address] [place] [address] Dr. Pravin Travis IG # 0.03 10e3/ul Normal 0.00-0.03 [facility] Comment on above: Performed By: #### C BC #### [facility] [address] [place] [address] Dr. Pravin Travis IG % 0.4 % Normal 0.0-0.5 [facility] Comment on above: Performed By: #### C BC #### [facility] [address] [place] [address] Dr. Pravin Travis LYMPH # 2.1 103/ul Normal 1.2-3.8 [facility] Comment on above: Performed By: #### C BC #### [facility] [address] [place] [address] Dr. Pravin Travis Lymphocytes/100 WBC (Bld) 24.3 % Normal 20.5-60.0 [facility] Comment on above: Performed By: #### C BC #### [facility] [address] [place] [address] Dr. Pravin Travis MANUAL DIFF REQ NO Normal [facility] Comment on above: Performed By: #### C BC #### [facility] [address] [place] [address] Dr. Pravin Travis MCH (RBC) [Entitic mass] 32.6 pg Normal 25.9-34.0 [facility] Comment on above: Performed By: #### C BC #### [facility] [address] [place] [address] Dr. Pravin Travis MCHC (RBC) [Mass/Vol] 34.3 g/dL Normal 29.9-35.2 [facility] Comment on above: Performed By: #### C BC #### [facility] [address] [place] [address] Dr. Pravin Travis MCV (RBC) [Entitic vol] 95.0 fL Critically high 80.0-94 .0 [facility] Comment on above: Performed By: #### C BC #### [facility] [address] [address] [address] Pravin Travis MONO # 0.8 103/ul Normal 0.3-0.8 [facility] Comment on above: Performed By: #### C BC #### [facility] [address] [address] [address] Pravin Travis Monocytes/100 WBC (Bld) 9.7 % Normal 1.7-12.0 [facility] Comment on above: Performed By: #### C BC #### [facility] [address] [address] [address] Pravin Travis NEUT # 4.9 103/ul Normal 1.4-6.5 [facility] Comment on above: Performed By: #### C BC #### [facility] [address] [place] [address] Dr. Pravin Travis Neutrophils/100 WBC (Bld) 57.5 % Normal 43.0-75.0 [facility] Comment on above: Performed By: #### C BC #### [facility] [address] [place] [address] Dr. Pravin Travis Platelet mean volume (Bld) [Entitic vol] 10.4 fL Normal 9.5-13.5 [facility] Comment on above: Performed By: #### C BC #### [facility] [address] [place] [address] Dr. Pravin Travis PLT 215 103/ul Normal 150-450 [facility] Comment on above: Performed By: #### C BC #### [facility] [address] [place] [address] Dr. Pravin Travis RBC 4.97 106/ul Normal 4.70-6.10 [facility] Comment on above: Performed By: #### C BC #### [facility] [address] [place] [address] Dr. Pravin Travis WBC 8.6 103/ul Normal 4.0-11.0 [facility] Comment on above: Performed By: #### C BC #### [facility] [address] [place] [address] ABD/PELV W CONon [...] ALANA MORROW Date: 2022-03-26 01:45 Normal [facility] ER URINE PROFILEon 2 Bilirubin Ql (U) Negative Normal NEGATIVE [facility] Comment on above: Performed By: #### E RUR #### [facility] [address] [place] [address] Dr. Pravin Travis Clarity (U) SL CLOUDY Abnormal CLEAR [facility] Comment on above: Performed By: #### E RUR #### [facility] [address] [place] [address] Dr. Pravin Travis Color (U) LT. YELLOW Normal YELLOW [facility] Comment on above: Performed By: #### E RUR #### [facility] [address] [place] [address] Dr. Pravin Travis ERUAHMayi A micrscopic examination will be performed if indicated. Normal [facility] Comment on above: Performed By: #### E RUR #### [facility] [address] [place] [address] Dr. Pravin Travis Glucose Ql (U) Negative Normal NEGATIVE [facility] Comment on above: Performed By: #### E RUR #### [facility] [address] [place] [address] Dr. Pravin Travis Hemoglobin Ql (U) Negative Normal NEGATIVE [facility] Comment on above: Performed By: #### E RUR #### [facility] [address] [place] [address] Dr. Pravin Travis Ketones Ql (U) Negative Normal NEGATIVE [facility] Comment on above: Performed By: #### E RUR #### [facility] [address] [place] [address] Dr. Pravin Travis LEUKOCYTES Negative Normal NEGATIVE [facility] Comment on above: Performed By: #### E RUR #### [facility] [address] [place] [address] Dr. Pravin Travis Nitrite Ql (U) Negative Normal NEGATIVE [facility] Comment on above: Performed By: #### E RUR #### [facility] [address] [place] [address] Dr. Pravin Travis pH (U) 7.5 [pH] Normal 5-9 [facility] Comment on above: Performed By: #### E RUR #### [facility] [address] [place] [address] Dr. Pravin Travis SPEC GRAVITY 1.015 Normal 1.005-<=1.02 5 [facility] Comment on above: Performed By: #### E RUR #### [facility] [address] [place] [address] Dr. Pravin Travis UA PROTEIN Negative Normal NEGATIVE/ TRACE [facility] Comment on above: Performed By: #### E RUR #### [facility] [address] [place] [address] Dr. Pravin Travis UR MICRO IND NOT INDICATED Normal [facility] Comment on above: Performed By: #### E RUR #### [facility] [address] [place] [address] Dr. Pravin Travis Urobilinogen Qn (U) 0.2 {Katie'U}/dL Normal 0.2 - 1. 0 [facility] Comment on above: Performed By: #### E RUR #### [facility] [address] [place] [address] Dr. Pravin Travis PROF 14(COMP METB)on 022 Albumin [Mass/Vol] 4.3 g/dL Normal 3.4-5.0 [facility] Comment on above: Performed By: #### C MP #### [facility] [address] [place] [address] Dr. Pravin Travis Albumin/Globulin [Mass ratio] 1.3 {ratio} Normal [facility] Comment on above: Performed By: #### C MP #### [facility] [address] [place] [address] Dr. Pravin Travis ALP [Catalytic activity/Vol] 92 U/L Normal 46-116 [facility] Comment on above: Performed By: #### C MP #### [facility] [address] [place] [address] Dr. Pravin Travis ALT [Catalytic activity/Vol] 31 U/L Normal 16-63 [facility] Comment on above: Performed By: #### C MP #### [facility] [address] [place] [address] Dr. Pravin Travis Anion gap [Moles/Vol] 10.9 mmol/L Normal [facility] Comment on above: Performed By: #### C MP #### [facility] [address] [place] [address] Dr. Pravin Travis AST [Catalytic activity/Vol] 31 U/L Normal 15-37 [facility] Comment on above: Performed By: #### C MP #### [facility] [address] [place] [address] Dr. Pravin Tarvis Bilirubin [Mass/Vol] 0.5 mg/dL Normal 0.2-1.0 [facility] Comment on above: Performed By: #### C MP #### [facility] [address] [place] [address] Dr. Pravin Travis Calcium [Mass/Vol] 9.3 mg/dL Normal 8.5-10.1 [facility] Comment on above: Performed By: #### C MP #### [facility] [address] [address] [address] Pravin Travis Chloride [Moles/Vol] 103 mmol/L Normal 98-107 [facility] Comment on above: Performed By: #### C MP #### [facility] [address] [address] [address] Pravin Travis CO2 [Moles/Vol] 29.8 mmol/L Normal 21.0-32.0 [facility] Comment on above: Performed By: #### C MP #### [facility] [address] [address] [address] Pravin Travis Creatinine [Mass/Vol] 1.22 mg/dL Normal 0.70-1.30 [facility] Comment on above: Performed By: #### C MP #### [facility] [address] [address] [address] Pravin Travis EGFR-AF [place]LANDER >60 Normal >=60 [facility] Comment on above: Performed By: #### C MP #### [facility] [address] [place] [address] Dr. Pravin Travis EGFR-NON AF [place]ER >60 Normal >=60 [facility] Comment on above: Performed By: #### C MP #### [facility] [address] [address] [address] Pravin Travis Globulin (S) [Mass/Vol] 3.4 g/dL Normal T [facility] Comment on above: Performed By: #### C MP #### [facility] [address] [address] [address] Pravin Travis Glucose [Mass/Vol] 91 mg/dL Normal 74-106 [facility] Comment on above: Performed By: #### C MP #### [facility] [address] [address] [address] Pravin Travis Potassium [Moles/Vol] 3.7 mmol/L Normal 3.5-5.1 [facility] Comment on above: Performed By: #### C MP #### [facility] [address] [address] [address] Pravin Travis Protein [Mass/Vol] 7.7 g/dL Normal 6.4-8.2 [facility] Comment on above: Performed By: #### C MP #### [facility] [address] [address] [address] Pravin Travis Sodium [Moles/Vol] 140 mmol/L Normal 136-145 [facility] Comment on above: Performed By: #### C MP #### [facility] [address] [address] [address] Pravin Travis Urea nitrogen [Mass/Vol] 11.0 mg/dL Normal 7.0-18.0 [facility] Comment on above: Performed By: #### C MP #### [facility] [address] [address] [address] Pravin Travis Urea nitrogen/Creatinine [Mass ratio] 9.0 mg/mg Normal [facility] Comment on above: Performed By: #### C MP #### [facility] [address] [address] [address] Pravin Travis COVID Quick Testingon 2021 Result Positive [employer] Other COVID Quick Testingon 2020 Result Negative [employer] Other Quick Fluon 08-11-2021 FLUAV Ab CF (S) [Titer] Negative [employer] Other FLUBV Ab CF (S) [Titer] Negative [facility] Other Vital Signs Date Time Vital Sign Value Performing Clinician Facility 03-19-2025 16:30-0400 Diastolic blood pressure 113 mm[Hg] Cisco Furlong DO Work Phone: [facility] 03-19-2025 16:30-0400 Heart rate 76 /min Cisco Furlong DO Work Phone: [facility] 03-19-2025 16:30-0400 Respiratory rate 16 /min Cisco Furlong DO Work Phone: [facility] 03-19-2025 16:30-0400 SaO2% (BldA) [Mass fraction] 97 % Cisco Furlong DO Work Phone: [facility] 03-19-2025 16:30-0400 Systolic blood pressure 143 mm[Hg] Cisco Furlong DO Work Phone: [facility] 03-19-2025 16:00-0400 Body temperature 96.8 [degF] Cisco Furlong DO Work Phone: [facility] 03-19-2025 11:36-0400 Body height 172.72 cm Cisco Furlong DO Work Phone: [facility] 03-19-2025 11:36-0400 Body weight 90.9 kg Cisco Furlong DO Work Phone: [facility] 02-28-2025 12:24-0400 Body height 175.3 cm Lydia Sankovic PA-C Work Phone: [facility] 02-28-2025 12:24-0400 Body mass index (BMI) [Ratio] 29.53 kg/m2 Lydia Sankovic PA-C Work Phone: [facility] 02-28-2025 12:24-0400 Body temperature 97 [degF] Lydia Sankovic PA-C Work Phone: [facility] 02-28-2025 12:24-0400 Body weight 90.72 kg Lydia Sankovic PA-C Work Phone: [facility] 02-28-2025 12:24-0400 Diastolic blood pressure 93 mm[Hg] Lydia Sankovic PA-C Work Phone: [facility] 02-28-2025 12:24-0400 Heart rate 76 /min Lydia Sankovic PA-C Work Phone: [facility] 02-28-2025 12:24-0400 SaO2% (BldA) [Mass fraction] 97 % Lydia Mariebita PA-C Work Phone: [facility] 02-28-2025 12:24-0400 Systolic blood pressure 141 mm[Hg] Lydia Mariebita PA-C Work Phone: [facility] 02-18-2025 13:45-0400 Body height 172.72 cm Cisco Furlong DO Work Phone: [facility] 02-18-2025 13:45-0400 Body mass index (BMI) [Ratio] 28.8 kg/m2 Cisco Furlong DO Work Phone: [facility] 02-18-2025 13:45-0400 Body weight 86.18 kg Cisco Furlong DO Work Phone: [facility] 01-09-2025 12:53-0400 Diastolic blood pressure 109 mm[Hg] Mohamad Mouchli [facility] 01-09-2025 12:53-0400 Mean blood pressure 131 mm[Hg] Mohamad Mouchli [facility] 01-09-2025 12:53-0400 Systolic blood pressure 174 mm[Hg] Mohamad Mouchli [facility] 01-09-2025 12:43-0400 Blood Pressure Location Mohamad Mouchli [facility] 01-09-2025 12:43-0400 Diastolic blood pressure 117 mm[Hg] Mohamad Mouchli [facility] 01-09-2025 12:43-0400 Heart rate 80 /min Mohamad Mouchli [facility] 01-09-2025 12:43-0400 Systolic blood pressure 179 mm[Hg] Mohamad Mouchli [facility] 12-10-2024 13:07-0400 Body height 172.7 cm Cisco Furlong DO Work Phone: [facility] 12-10-2024 13:07-0400 Body mass index (BMI) [Ratio] 29.47 kg/m2 Cisco Furlong DO Work Phone: [facility] [employer] [facility] 12-10-2024 13:07-0400 Body temperature 98.4 [degF] Cisco Furlong DO Work Phone: [facility] [employer] [facility] 12-10-2024 13:07-0400 Body weight 87.91 kg Cisco Furlong DO Work Phone: [facility] 12-10-2024 13:07-0400 Diastolic blood pressure 90 mm[Hg] Cisco Furlong DO Work Phone: [facility] 12-10-2024 13:07-0400 Heart rate 102 /min Icsco Furlong DO Work Phone: [facility] [employer] [facility] 12-10-2024 13:07-0400 Respiratory rate 18 /min Cisco Furlong DO Work Phone: [facility] 12-10-2024 13:07-0400 SaO2% (BldA) [Mass fraction] 97 % Cisco Furlong DO Work Phone: [facility] 12-10-2024 13:07-0400 Systolic blood pressure 140 mm[Hg] Cisco Furlong DO Work Phone: [facility] 09-11-2024 14:23-0500 Body height 172.7 cm Cisco Furlong DO Work Phone: [facility] 09-11-2024 14:23-0500 Body mass index (BMI) [Ratio] 28.89 kg/m2 Cisco Furlong DO Work Phone: [facility] 09-11-2024 14:23-0500 Body temperature 97.9 [degF] Cisco Furlong DO Work Phone: [facility] [employer] [facility] 09-11-2024 14:23-0500 Body weight 86.18 kg Cisco Furlong DO Work Phone: [facility] [employer] [facility] 09-11-2024 14:23-0500 Diastolic blood pressure 90 mm[Hg] Cisco Furlong DO Work Phone: [facility] 09-11-2024 14:23-0500 Heart rate 105 /min Cisco Furlong DO Work Phone: [facility] [employer] [facility] 09-11-2024 14:23-0500 Respiratory rate 20 /min Cisco Furlong DO Work Phone: [facility] [employer] [facility] 09-11-2024 14:23-0500 SaO2% (BldA) [Mass fraction] 99 % Cisco Furlong DO Work Phone: [facility] 09-11-2024 14:23-0500 Systolic blood pressure 140 mm[Hg] Cisco Furlong DO Work Phone: [facility] 03-15-2024 16:08-0400 Body height 172.7 cm Cisco Furlong DO Work Phone: [facility] 03-15-2024 16:08-0400 Body mass index (BMI) [Ratio] 27.79 kg/m2 Cisco Furlong DO Work Phone: [facility] 03-15-2024 16:08-0400 Body temperature 97.7 [degF] Cisco Furlong DO Work Phone: [facility] 03-15-2024 16:08-0400 Body weight 82.92 kg Cisco Furlong DO Work Phone: [facility] 03-15-2024 16:08-0400 Diastolic blood pressure 70 mm[Hg] Cisco Furlong DO Work Phone: [facility] 03-15-2024 16:08-0400 Heart rate 79 /min Cisco Furlong DO Work Phone: [facility] 03-15-2024 16:08-0400 SaO2% (BldA) [Mass fraction] 97 % Cisco Furlong DO Work Phone: [facility] 03-15-2024 16:08-0400 Systolic blood pressure 120 mm[Hg] Cisco Furlong DO Work Phone: [facility] 03-03-2024 14:00-0400 Diastolic blood pressure 95 mm[Hg] DO Cisco Furlong Work Phone: [facility] 03-03-2024 14:00-0400 Heart rate 79 /min DO Cisco Furlong Work Phone: [facility] 03-03-2024 14:00-0400 Respiratory rate 18 /min DO Cisco Furlong Work Phone: [facility] 03-03-2024 14:00-0400 SaO2% (BldA) [Mass fraction] 95 % DO Cisco Furlong Work Phone: [facility] 03-03-2024 14:00-0400 Systolic blood pressure 147 mm[Hg] DO Cisco Furlong Work Phone: [facility] 03-03-2024 11:20-0400 Body temperature 98.2 [degF] DO Cisco Furlong Work Phone: [facility] 03-03-2024 11:18-0400 Body height 172.72 cm DO Cisco Furlong Work Phone: [facility] 03-03-2024 11:18-0400 Body weight 80.65 kg DO Cisco Furlong Work Phone: [facility] 02-02-2024 11:29-0400 Body temperature 98.6 [degF] Didi Orzech [facility] 02-02-2024 11:29-0400 Diastolic blood pressure 81 mm[Hg] Didi Orzech [facility] 02-02-2024 11:29-0400 Heart rate 77 /min Didi Orzech [facility] 02-02-2024 11:29-0400 Respiratory rate 16 /min Iddi Orzech [facility] 02-02-2024 11:29-0400 Systolic blood pressure 136 mm[Hg] Didi Orzech [facility] 01-30-2024 01:11-0400 Heart rate 159 /min DO Cisco Furlong Work Phone: [facility] 01-30-2024 00:30-0400 Respiratory rate 22 /min DO Cisco Furlong Work Phone: [facility] 01-30-2024 00:30-0400 SaO2% (BldA) [Mass fraction] 97 % DO Cisco Furlong Work Phone: [facility] 01-29-2024 23:38-0400 Diastolic blood pressure 95 mm[Hg] DO Cisco Furlong Work Phone: [facility] 01-29-2024 23:38-0400 Systolic blood pressure 136 mm[Hg] DO Cisco Furlong Work Phone: [facility] 01-29-2024 22:45-0400 Body height 172.72 cm DO Cisco Furlong Work Phone: [facility] 01-29-2024 22:45-0400 Body weight 86.2 kg DO Cisco Furlong Work Phone: [facility] 01-29-2024 22:44-0400 Body temperature 98.3 [degF] DO Cisco Bonilla Work Phone: [facility] 12-09-2023 08:47-0400 Body height 172.7 cm Michelle Francis TABLET MAKING MACHINE OPERATOR-LEATHER CARVER Work Phone: [facility] [employer] 12-09-2023 08:47-0400 Body mass index (BMI) [Ratio] 30.08 kg/m2 Michellenisha Francis TABLET MAKING MACHINE OPERATOR-LEATHER CARVER Work Phone: [facility] [employer] 12-09-2023 08:47-0400 Body temperature 98.29 [degF] Michelle Francis TABLET MAKING MACHINE OPERATOR-LEATHER CARVER Work Phone: [facility] [employer] 12-09-2023 08:47-0400 Body weight 89.72 kg Michelle Francis TABLET MAKING MACHINE OPERATOR-LEATHER CARVER Work Phone: [facility] [employer] 12-09-2023 08:47-0400 Diastolic blood pressure 86 mm[Hg] Michelle Francis TABLET MAKING MACHINE OPERATOR-LEATHER CARVER [facility] 12-09-2023 08:47-0400 Heart rate 82 /min Michelle Francis TABLET MAKING MACHINE OPERATOR-LEATHER CARVER Work Phone: [facility] 12-09-2023 08:47-0400 Respiratory rate 18 /min Michellenisha Francis TABLET MAKING MACHINE OPERATOR-LEATHER CARVER Work Phone: [facility] [employer] 12-09-2023 08:47-0400 SaO2% (BldA) [Mass fraction] 96 % Michellenisha Francis TABLET MAKING MACHINE OPERATOR-LEATHER CARVER Work Phone: [facility] 12-09-2023 08:47-0400 Systolic blood pressure 120 mm[Hg] Michelle Francis TABLET MAKING MACHINE OPERATOR-LEATHER CARVER Work Phone: [facility] 09-01-2021 13:30-0500 Body height 172.72 cm Tawnya Andre Other [facility] Other 09-01-2021 13:30-0500 Body mass index (BMI) [Ratio] 31.93 kg/m2 Tawnya Andre Other [employer] Other 09-01-2021 13:30-0500 Body temperature 97.4 [degF] Tawnya Jes Other [employer] Other 09-01-2021 13:30-0500 Body weight 95.26 kg Tawnya Andre Other [facility] Other 09-01-2021 13:30-0500 Respiratory rate 18 /min Tawnya Andre Other [employer] Other 09-01-2021 13:30-0500 SaO2% (BldA) [Mass fraction] 98 % Tawnya Andre Other [facility] Other 08-11-2021 12:00-0500 Body height 172.72 cm Mary Christine Other [employer] Other 08-11-2021 12:00-0500 Body mass index (BMI) [Ratio] 31.93 kg/m2 Mary King Other [facility] Other 08-11-2021 12:00-0500 Body temperature 96.9 [degF] Mary King Other [facility] Other 08-11-2021 12:00-0500 Body weight 95.26 kg Mary Christine Other [facility] Other 08-11-2021 12:00-0500 Respiratory rate 18 /min Mary King Other [facility] Other 08-11-2021 12:00-0500 SaO2% (BldA) [Mass fraction] 96 % Mary Christine Other [employer] Other Encounters Encounter Date Encounter Type Care Provider Facility Start: 05-16-2025 ambulatory Didi X Orzech Facilit y:[facility] Start: 05-15-2025 ambulatory Vivian Brady Facrosy lity:[facility] Start: 04-23-2025 End: 04-23-2025 ambulatory Vivian Brady Facility:[facility] Start: 04-23-2025 End: 04-23-2025 Patient encounter procedure Vivian Brady [facility] Start: 04-08-2025 End: 04-08-2025 ambulatory Ciscochelsea Carcamoclyde DO Work Phone: [facility] Work Phone: Start: 04-08-2025 End: 04-08-2025 Patient encounter procedure Ehsan Avina DO -[facility] Work Phone: Start: 04-03-2025 End: 04-03-2025 Admission to same day surgery center Lydia Drake PA-C Work Phone: Colorectal Surgery Comment on above: Pelvic Floor Confere nce Start: 04-03-2025 End: 04-03-2025 ambulatory yLdia Drake PA-C Work Phone: Colorectal Surgery Start: 04-03-2025 End: 04-03-2025 E-mail encounter from caregiver Lydia Drake PA-C Work Phone: Colorectal Surgery Start: 04-03-2025 End: 04-03-2025 Follow-up encounter Lydia Drake PA-C Work Phone: Colorectal Surgery Comment on above: Follow up from brittanyu al visit Start: 04-02-2025 End: 04-02-2025 Admission to same day surgery center Lydia Drake JAME Work Phone: Colorectal Surgery Comment on above: Constipation, unspec ified constipation type (Primary Dx); Rectal spasm; Pelvic floor dysfunction; Anxiety; Distressed about housing issues; Orthostatic dizziness Start: 04-02-2025 End: 04-02-2025 Telemedicine consultation with patient Lydia BARONERemberto Work Phone: Colorectal Surgery Start: 04-02-2025 End: 04-02-2025 ambulatory LYDIA DRAKE Facility:[facility] Start: 03-22-2025 End: 03-27-2025 Refill Cisco Thomason Carlos Albertoclyde DO Work Phone: [facility] Comment on above: Anxiety Start: 03-19-2025 End: 03-19-2025 Admission to same day surgery center Ehsan Avina DO -[facility] Start: 03-19-2025 End: 03-19-2025 ambulatory Cisco Furlong DO Work Phone: [facility] Work Phone: Start: 03-18-2025 End: 03-18-2025 Patient encounter procedure Ehsan Avina DO -Pre-Surgical Testing Work Phone: Start: 03-18-2025 End: 03-18-2025 ambulatory Cisco Furlong DO Work Phone: [facility] Work Phone: Start: 03-18-2025 Encounter for preprocedural laboratory examination Ehsan Tillman [facility] Start: 03-13-2025 End: 03-13-2025 ambulatory Cisco Furlong DO Work Phone: [facility] Work Phone: Start: 03-13-2025 End: 03-13-2025 Patient encounter procedure Ehsan Avina DO -[facility] Work Phone: Start: 03-13-2025 End: 03-13-2025 Patient encounter procedure Ehsan Avina -[facility] Start: 03-13-2025 End: 03-13-2025 ambulatory Cisco Furlong DO Work Phone: [facility] Work Phone: Start: 03-12-2025 Non-patient / Non-visit Ehsan alanis DO -[facility] Work Phone: Start: 03-07-2025 End: 03-07-2025 Telephone encounter Lydia Mariebita KILGORE Work Phone: Colorectal Surgery Comment on above: Patient Update Start: 03-01-2025 End: 03-01-2025 E-mail encounter from caregiver Lydia Mariebita ALANLizzieRemberto Work Phone: Colorectal Surgery Start: 03-01-2025 End: 03-01-2025 Follow-up encounter Lydia Mariebita KILGORE Work Phone: Colorectal Surgery Comment on above: Follow up from visit Start: 02-28-2025 End: 02-28-2025 Patient encounter procedure Lydia Woodsonkrystyna ALANCarole Work Phone: Colorectal Surgery Comment on above: Pelvic floor dysfunc tion (Primary Dx); Rectal spasm; Constipation, unspecified constipation type Start: 02-28-2025 End: 02-28-2025 Nursing evaluation of patient and report Sahil Bergeron RN Colorectal Surgery Comment on above: Pelvic floor dysfunc tion Start: 02-28-2025 End: 02-28-2025 ambulatory FELIPE ARIAS Facility:[facility] Start: 02-18-2025 End: 02-18-2025 ambulatory Cisco Furlong DO Work Phone: [facility] Work Phone: Start: 02-18-2025 End: 02-18-2025 Patient encounter procedure Ehsan Avina DO -[facility] Work Phone: Start: 02-11-2025 End: 02-11-2025 Telephone encounter Ashley Hayward MD Work Phone: Colorectal Surgery Comment on above: Appointment (Left vm we received referral for botox injections) Start: 02-06-2025 End: 02-06-2025 Refill Cisco G Furlong DO Work Phone: [facility] Start: 01-28-2025 End: 01-29-2025 Refill Cisco G Furlong DO [facility] Start: 01-26-2025 End: 01-28-2025 Refill Cisco G Furlong DO [facility] Start: 01-24-2025 End: 01-24-2025 [facility]ulatory [facility] Start: 01-24-2025 End: 01-24-2025 Patient encounter procedure Vivian Brady [facility] Start: 01-16-2025 End: 01-16-2025 Transcribe Orders Vivian Brady MD Work Phone: Referring Physician Comment on above: Constipation by outl et dysfunction (Primary Dx); Stress-related physiological response affecting medical condition Start: 01-09-2025 End: 01-09-2025 ambulatory Vivian Brady Facility:[facility] Start: 01-09-2025 End: 01-09-2025 Patient encounter procedure Vviian Brady [facility] Start: 12-31-2024 ambulatory [facility] Start: 12-31-2024 End: 12-31-2024 Telephone encounter Linda Marc C[facility] Start: 12-26-2024 [...] 12-12-2024 Refill Cisco Bonilla DO Work Phone: [facility] Start: 12-10-2024 End: 12-10-2024 ambulatory CHATHAM P[facility] Start: 12-10-2024 Encounter for genera l adult medical examination without abnormal findings [facility] Start: 12-10-2024 End: 12-10-2024 Patient encounter status Cisco Bonilla DO Work Phone: [facility] [employer] Start: 12-10-2024 End: 12-10-2024 Periodic preventive med est patient 40-64yrs Cisco Bonilla DO Work Phone: [facility] Comment on above: Well adult exam (Marilynn lawson Dx); Anxiety; Overweight; Iron overload; Encounter for screening for malignant neoplasm of prostate; Ex-smoker; Hypogonadism in male; Severe episode of recurrent major depressive disorder, without psychotic features (CMS-HCC); Irritable bowel syndrome with both constipation and diarrhea Start: 12-10-2024 End: 12-10-2024 ambulatory [facility] Start: 12-10-2024 Encounter for genera l adult medical examination without abnormal findings [facility] Start: 11-02-2024 End: 11-02-2024 Orders Only Cisco Bonilla DO Work Phone: [facility] Start: 10-15-2024 End: 10-15-2024 Orders Only Cisco Bonilla DO Work Phone: [facility] Start: 09-26-2024 End: 10-03-2024 Telephone encounter [facility] Work Phone: [facility] Start: 09-13-2024 End: 09-13-2024 Orders Only Cisco Bonilla DO Work Phone: [facility] Start: 09-12-2024 End: 09-13-2024 Orders Only Cisco Bonilla DO Work Phone: [facility] Comment on above: Irritable bowel synd chaitanya with both constipation and diarrhea (Primary Dx) Start: 09-11-2024 End: 09-11-2024 Office outpatient visit 25 minutes Cisco Bonilla DO Work Phone: [facility] Comment on above: Irritable bowel synd chaitanya with both constipation and diarrhea (Primary Dx); Essential hypertension, benign; Anxiety; Encounter for screening for malignant neoplasm of prostate Start: 09-11-2024 End: 09-12-2024 Refill Cisco Bonilla DO Work Phone: [facility] Start: 05-15-2024 End: 05-15-2024 [facility] Start: 04-04-2024 End: 04-10-2024 Telephone encounter Cisco Bonilla DO Work Phone: [facility] Start: 04-03-2024 End: 04-03-2024 Patient encounter procedure Didi Allen [facility] Caren Start: 03-16-2024 End: 03-16-2024 Orders Only Cisco [...] Anal fissure Start: 03-15-2024 End: 03-15-2024 ambulatory [facility] Start: 03-14-2024 End: 03-14-2024 Orders Only Cisco Bonilla DO Work Phone: [facility] Start: 03-03-2024 End: 03-03-2024 Emergency department patient visit DO Cisco Bonilal Work Phone: [facility] Work Phone: Start: 02-20-2024 End: 02-20-2024 Orders Only Cisco Bonilla DO Work Phone: [facility] Start: 02-17-2024 End: 02-18-2024 Evaluation and management of inpatient JENNYFER AUGUSTIN [facility] Start: 02-13-2024 End: 02-15-2024 Telephone encounter Jennyfer Augustin DO Work Phone: [facility] Start: 02-05-2024 End: 02-05-2024 Orders Only Cisco Bonilla DO Work Phone: [facility] Comment on above: Change in bowel habi ts (Primary Dx); Polyp of colon, unspecified part of colon, unspecified type Start: 02-02-2024 End: 02-02-2024 Patient encounter procedure Didi Allen [facility] Cammie Start: 01-31-2024 End: 02-01-2024 Telephone encounter Barbara De La Torre REFRIGERATION MECHANIC [facility] Start: 01-29-2024 End: 01-30-2024 Emergency department patient visit DO Cisco Bonilla Work Phone: [facility] Work Phone: Start: 12-09-2023 End: 12-09-2023 Office outpatient visit 15 minutes Michelle Francis APRN-[facility] Work Phone: [facility] Comment on above: Irritable bowel synd chaitanya with constipation (Primary Dx); Gastroesophageal reflux disease, unspecified whether esophagitis present; 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 ([facility] Start: 03-26-2022 End: 03-26-[address] CISCO BONILLA Facility: Start: 09-01-2021 End: 09-01-2021 ambulatory Tawnya Andre Other [facility] Other Start: 09-01-2021 Office outpatient vi sit 15 minutes Tawnya Andre [facility] Start: 08-11-2021 End: 08-11-2021 ambulatory Mary King Other [facility] Other Start: 08-11-2021 Office outpatient vi sit 15 minutes Mary King [facility] Start: 08-30-2016 End: 08-31-2016 Ambulatory [facility] Facility:[facility] Procedures Date Procedure Procedure Detail Performing Clinician Start: 03-19-2025 Open reduction of fr acture with internal fixation Cisco Bonilla DO Work Phone: Start: 03-19-2025 X-ray of right foot Den chelsea Bonilla DO Work Phone: Start: 03-13-2025 X-ray of right foot Den chelsea Bonilla DO Work Phone: Start: 02-28-2025 ADULT [facility] Violette Maurer TABLET MAKING MACHINE OPERATOR.LEATHER CARVER Work Phone: Start: 12-10-2024 Adult depression scr eening assessment Cisco Bonilla DO Work Phone: Start: 12-10-2024 Lipid 1996 panel - S dereje or Xochilt Bergeron RN Start: 03-15-2024 Follow-up visit Follow-up [...] Adult depression scr eening assessment Michelle Francis TABLET MAKING MACHINE OPERATOR-LEATHER CARVER Work Phone: Appendectomy [facility]i T[facility] Plan of Treatment Date Care Activity Detail Author Start: 02-16-2034 Screening for malign ant neoplasm of colon Colonoscopy [email or web address] Start: 12-10-2029 Lipid panel Lipid Screening [facility] Start: 12-10-2029 Prostate specific antigen measurement Prostate Cancer Screening Discussion [facility] Start: 12-11-2027 Diabetes Screening [facility] Start: 12-10-2025 Administration of varicella zoster vaccine Zoster (Shingles) Vaccine (1 of 2) [facility] Comment on above: Postponed from 09/04 (Patient Refused) Start: 12-10-2025 Adult BMI Screening Adult BMI Screen ing [facility] Start: 12-10-2025 COVID-19 Vaccine ( season) COVID-19 Vaccine ( season) [facility] Comment on above: Postponed from 04/22 (Patient Refused) Start: 12-10-2025 Depression Screening Depression Scre ening [facility] Start: 12-10-2025 Tobacco Screening Tobacco Screening [facility] Start: 09-11-2025 Adult BMI Screening Adult BMI Screen ing [facility] Start: 09-11-2025 Tobacco Screening Tobacco Screening [facility] Start: 04-22-2025 Influenza vaccination P [facility] Start: 04-02-2025 End: 04-02-2025 Admission to same day surgery center 04/02/2025 11:30 AM EDT [facility] Colorectal Surgery [address] [place] [address] Lydia Drake, PA-C [address] [place] [address] f/u Colorectal Surgery Comment on above: f/u Start: 03-28-2025 End: 03-28-2025 Patient encounter procedure 03/28/2025 1:30 PM EDT OT/PT/Speech Visit [facility] [address] [place], [place] [id number] Belkys Smith, PT, DPT tightness in my rectum, anus i cant push out poop [facility] Comment on above: tightness in my rect um, anus i cant push out poop Start: 03-19-[address] [facility] Start: 03-19-2025 X-ray of right foot XR foot RT 2V Fi [facility] Start: 03-19-2025 XR Foot - right [address] [facility] Start: 03-18-[address] [facility] Start: 03-15-2025 End: 03-15-2025 Admission to same day surgery center 03/15/2025 4:30 PM EDT [facility] Colorectal Surgery [address] [address] George Navarrete DO [address] [place], [place] [id number] [facility] Colorectal Surgery Comment on above: [facility] Start: 03-15-2025 Adult BMI Screening Adult BMI Screen ing [facility] Start: 03-15-2025 Depression Screening Depression Scre ening [facility] Start: 03-15-2025 Tobacco Screening Tobacco Screening [facility] Start: 03-13-2025 X-ray of right foot XR foot RT min 3 V* [facility] Start: 03-13-2025 XR Foot - right GE [address] [facility] Start: 02-21-2025 End: 02-21-2025 Patient encounter procedure 02/21/2025 10:30 AM EDT Office Visit General Surgery [address] [address] Jey Kapadia MD [address] [place] [id number] Consult Botox Injection General Surgery Comment on above: Consult Botox Inject ion Start: 02-16-2025 Adult BMI Screening Adult BMI Screen ing [facility] Start: 02-16-2025 Screening for malign ant neoplasm of colon [facility] Start: 02-16-2025 Tobacco Screening Tobacco Screening [facility] Start: 02-05-2025 Tobacco Screening Tobacco Screening [facility] Start: 12-10-2024 End: 12-10-2025 CT Chest for screening WO contrast CT low dose lung screening (Annual) Imaging Routine Ex-smoker Expected: 12/10/2024, Expires: 12/10/2025 [facility] Comment on above: Expected: 12/10/2024 , Expires: 12/10/2025 Start: 12-10-2024 End: 12-10-2024 Patient encounter procedure 12/10/2024 1:00 PM EDT Office Visit [facility] [address] [place] [address] Cisco Bonilla, DO [address] [place] [address] [facility] Start: 12-08-2024 Adult BMI Screening Adult BMI Screen ing [facility] Start: 12-08-2024 Depression Screening Depression Scre ening [facility] Start: 12-08-2024 Tobacco Screening Tobacco Screening [facility] Start: 09-26-2024 End: 09-26-2024 Patient encounter procedure 09/26/2024 2:00 PM EST Office Visit [facility] [address] [facility] [address] [place] [phone] Aníbal Will DO [address] [facility] [address] [place] [address] [facility] Start: 06-04-2024 End: 06-04-2024 Patient encounter procedure 06/04/2024 2:15 PM EDT Office Visit [facility] [address] [place] [place] [address] Cisco Bonilla DO [address], [facility] [place] [address] [facility] Start: 04-22-2024 Covid-19 Vaccine ( season) Covid-19 Vaccine ( season) [facility] Start: 04-22-2024 COVID-19 Vaccine ( season) COVID-19 Vaccine ( season) [facility] Start: 04-22-2024 Influenza vaccination Influenza Vacc ine [facility] Start: 03-15-2024 End: 03-15-2024 Patient encounter procedure 03/15/2024 3:45 PM EDT Office Visit [facility] [address] [place] [address] Cisco Bonilla, DO [address], [place] [address] [facility] Start: 02-18-2024 Adult BMI Screening Adult BMI Screen ing [facility] Start: 02-18-2024 Depression Screening Depression Scre ening [facility] Start: 02-18-2024 Tobacco Screening Tobacco Screening [facility] Start: 02-17-2024 End: 02-17-2024 Admission to same day surgery center 02/17/2024 2:30 PM EDT - 02/17/2024 3:30 PM EDT Surgery [facility] [address] [place] [facility] [place] [phone] Jennyfer Augustin, DO [address] [place] [address] COLONOSCOPY DIAGNOSTIC / SCREENING [21804 (CPT )] [facility] Comment on above: COLONOSCOPY DIAGNOST IC / SCREENING [44178 (CPT )] Start: 02-17-2024 End: 02-17-2024 Colonoscopy flx dx w/collj spec when pfrmd COLONOSCOPY DIAGNOSTIC / SCREENING change in bowel habits 02/17/2024 2:30 PM EDT [facility] Start: 02-17-2024 Subsequent hospital visit by physician 02/17/2024 2:30 PM EDT Hospital Encounter [facility] [address] [place] [phone] Jennyfer Augustin, DO [address] [place] [address] Change in bowel habits (Primary Dx) [facility] Comment on above: Change in bowel habi ts (Primary Dx) Start: 02-16-2024 End: 02-16-2024 ambulatory 02/16/2024 3:50 PM EDT Support Visit [facility] - Pre Admit [address] [place] [address] [facility] Start: 01-29-2024 CT Abdomen and Pelvi s WO contrast [facility] Start: 01-29-2024 CT of abdomen and pe lvis without contrast CT abdomen pelvis wo con [facility] Start: 10-28-2023 DTaP,Tdap and Td Vaccines (2 - Td or Tdap) DTaP,Tdap and Td Vaccines (2 - Td or Tdap) [facility] Start: 10-28-2023 Urine microalbumin profile DTaP,Tdap,Td Vaccine (2 - Td or Tdap) [facility] Start: 04-22-2023 COVID-19 Vaccine ( season) COVID-19 Vaccine ( season) [facility] Start: 2018 Administration of varicella zoster vaccine Zoster (Shingles) Vaccine (1 of 2) [facility] Start: 2018 Pneumococcal Vaccine : 50+ (1 of 1 - PCV) Pneumococcal Vaccine: 50+ (1 of 1 - PCV) [facility] Start: 2018 Shingrix Vaccine (1 of 2) Shingrix Vaccine (1 of 2) [facility] Start: 2013 Diabetes Screening Diabetes Screenin g [facility] Start: 2013 Prostate specific antigen measurement Prostate Cancer Screening Discussion [facility] Start: 2013 Screening for malign ant neoplasm of colon [facility] Start: 2003 Lipid panel Lipid Screening [facility] Start: 1987 Hepatitis B Vaccine (1 of 3 - 19+ 3-dose series) Hepatitis B Vaccine (1 of 3 - 19+ 3-dose series) [facility] Start: 1987 Pneumococcal Vaccine : 50+ (1 of 2 - PCV) Pneumococcal Vaccine: 50+ (1 of 2 - PCV) [facility] Start: 1987 Shingrix Vaccine (1 of 2) Shingrix Vaccine (1 of 2) [facility] Start: 1987 Urine microalbumin profile DTaP,Tdap,Td Vaccine (1 - Tdap) [facility] Start: 1986 Adult BMI Follow Up Plan Adult BMI Follow Up Plan [email or web address] Start: 1986 Anxiety Screening Anxiety Screening [facility] Start: 1986 Depression Screening Depression Scre ening [facility] Start: 1986 Hepatitis C screening Hepatitis C Sc juan josé [facility] Start: 1986 HIV screening HIV Screening [facility] End: 09-11-2025 CBC panel - Blood by Automated count CBC Lab Routine Irritable bowel syndrome with both constipation and diarrhea Essential hypertension, benign 1 Occurrences starting 09/11/2024 until 09/11/2025 [email or web address] Comment on above: 1 Occurrences starti ng 09/11/2024 until 09/11/2025 End: 12-10-2025 CBC panel - Blood by Automated count CBC without diff Lab Routine Hypogonadism in male 1 Occurrences starting 12/10/2024 until 12/10/2025 [email or web address] Comment on above: 1 Occurrences starti ng 12/10/2024 until 12/10/2025 End: 02-04-2025 Colonoscopy Colonoscopy GI Routine Change in bowel habits Polyp of colon, unspecified part of colon, unspecified type 1 Occurrences starting 02/05/2024 until 02/04/2025 [facility] Work Phone: Comment on above: 1 Occurrences starti ng 02/05/2024 until 02/04/2025 Colonoscopy flx dx w/collj spec when pfrmd COLONOSCOPY DIAGNOSTIC / SCREENING Change in [facility] End: 09-11-2025 Comprehensive metabolic 2000 panel - Serum or Plasma Comprehensive metabolic panel Lab Routine Essential hypertension, benign 1 Occurrences starting 09/11/2024 until 09/11/2025 [email or web address] Comment on above: 1 Occurrences starti ng 09/11/2024 until 09/11/2025 End: 12-10-2025 Comprehensive metabolic 2000 panel - Serum or Plasma Comprehensive metabolic panel Lab Routine Well adult exam 1 Occurrences starting 12/10/2024 until 12/10/2025 [facility] Work Phone: Comment on above: 1 Occurrences starti ng 12/10/2024 until 12/10/2025 End: 12-10-2025 Iron [Mass/volume] in Serum or Plasma Iron level Lab Routine Iron overload 1 Occurrences starting 12/10/2024 until 12/10/2025 [email or web address] Comment on above: 1 Occurrences starti ng 12/10/2024 until 12/10/2025 End: 12-10-2025 Lipid 1996 panel - Serum or Plasma Lipid profile Lab Routine Well adult exam 1 Occurrences starting 12/10/2024 until 12/10/2025 [email or web address] Comment on above: 1 Occurrences starti ng 12/10/2024 until 12/10/2025 Patient Education [facility] Work Phone: Patient referral [facility] Work Phone: End: 09-11-2025 Prostatic specific antigen screen Prostatic specific antigen screen Lab Routine Encounter for screening for malignant neoplasm of prostate 1 Occurrences starting 09/11/2024 until 09/11/2025 [email or web address] Comment on above: 1 Occurrences starti ng 09/11/2024 until 09/11/2025 End: 12-10-2025 Prostatic specific antigen screen Prostatic specific antigen screen Lab Routine Encounter for screening for malignant neoplasm of prostate 1 Occurrences starting 12/10/2024 until 12/10/2025 [email or web address] Comment on above: 1 Occurrences starti ng 12/10/2024 until 12/10/2025 End: 09-11-2025 TSH with Reflex TSH with Reflex Lab Routine Irritable bowel syndrome with both constipation and diarrhea Essential hypertension, benign Anxiety 1 Occurrences starting 09/11/2024 until 09/11/2025 [facility] Work Phone: Comment on above: 1 Occurrences starti ng 09/11/2024 until 09/11/2025 End: 12-10-2025 TSH with Reflex TSH with Reflex Lab Routine Anxiety Overweight 1 Occurrences starting 12/10/2024 until 12/10/2025 [email or web address] Comment on above: 1 Occurrences starti ng 12/10/2024 until 12/10/2025 XR Foot - right GE [address] [facility] Immunizations Immunization Date Immunization Notes Care Provider Dorene au 06-20-2021 influenza virus vaccine, unspecified formulation Michelle Francis APRN-LIDA Work Phone: [facility] 06-20-2021 influenza, injectabl e, quadrivalent, preservative free Michelle Tito TABLET MAKING MACHINE OPERATOR-LEATHER CARVER Work Phone: [facility] 06-20-2021 SARS-CoV-2 (COVID-19 ) mRNA BNT-162z4 vax Didi Orzech [facility] 12-08-2020 SARS-CoV-2 (COVID-19 ) mRNA BNT-162i3 vax Didi Orzech [facility] 11-18-2020 SARS-CoV-2 (COVID-19 ) mRNA BNT-162i8 vax Didi Orzech [facility] 04-06-2020 influenza virus vaccine, unspecified formulation Didi Orzech [facility] 04-06-2020 influenza, injectabl e, quadrivalent, preservative free Michelle Tito TABLET MAKING MACHINE OPERATOR-LEATHER CARVER Work Phone: [facility] 06-07-2019 influenza virus vaccine, unspecified formulation Didi Orzech [facility] 06-07-2019 influenza, injectabl e, quadrivalent, preservative free Michelle Tito TABLET MAKING MACHINE OPERATOR-LEATHER CARVER Work Phone: [facility] 10-27-2013 tetanus toxoid, redu brock diphtheria toxoid, and acellular pertussis vaccine, adsorbed Michelle Tito TABLET MAKING MACHINE OPERATOR-LEATHER CARVER Work Phone: [facility] Payers Date Payer Category Payer Self-pay [id number] 2024 Medicaid [id number] 2024 Medicaid [id number] 1968 Unknown [id number] [id number] 1968 Unknown [id number] 2.16.840.1.287698.3.579.2.1286 1968 Unknown [id number] 2.16.840.1.013122.3.579.2.1285 1968 Unknown [id number] 2.16.840.1.941175.3.579.2.1285 1968 Unknown [id number] 2.16.840.1.906544.3.579.2.1285 1968 Unknown [id number] 2.16.840.1.257049.3.579.2.1285 1968 Unknown [id number] 2.16.840.1.910630.3.579.2.1285 1968 Unknown [id number] 2.16.840.1.820672.3.579.2.1285 1968 Unknown [id number] 2.16.840.1.078651.3.579.2.1285 1968 Unknown [id number] 2.16.840.1.909274.3.579.2. 1968 Unknown [id number] 2.16.840.1.282101.3.579.2. 1968 Unknown [id number] 2.16.840.1.624539.3.579.2. 1968 Unknown [id number] 2.16.840.1.074586.3.579.2.7 1968 Unknown [id number] 2.16.840.1.228054.3.579.2.727 1959 Private Health Insurance [id number] Medicaid [id number] Unknown [id number] 2.1 [id number] Unknown Wilver CRANDALL/TONYA [id number] Unknown [id number] 2.16.840.1.470312.3.579.2.531 Unknown [id number] 2.16.840.1.876132.3.579.2.531 Unknown [id number] 2.16.840.1.797464.3.579.2.531 Social History Date Type Detail Facility Unknown if ever smoked [facility] Other Start: 09-11-2024 End: 02-28-2025 Sex Assigned At [facility] Start: 07-23-1985 End: 03-03-2024 Tobacco smoking status NHIS Smoker (finding) [facility] Start: 1970 Sex Assigned At Male [facility] Start: 02-02-2024 End: 01-24-2025 Tobacco smoking status Ex-smoker (finding) [facility] Start: 11-11-2015 Tobacco smoking status Never [facility] Start: 07-23-1985 End: 12-20-2018 History of tobacco use Cigarette Smoker [facility] Start: 12-09-2023 End: 02-28-2025 Cigarettes smoked current (pack per day) - Reported 1 [facility] History of tobacco use Passive smoker [facility] Start: 12-09-2023 Tobacco use and exposure Smokeless tobacco non-user [facility] Start: 09-11-2024 End: 12-10-2024 Alcoholic beverage intake Current drinker of alcohol (finding) [facility] Has the [employer], [employer], or water [employer] threatened to shut off services in your home in past 12Mo Yes [facility] Are you now , , , , never or living with a partner? Never [facility] How often to you hav e a drink containing alcohol? Monthly or less [facility] How often do you hav e 6 or more drinks on 1 occasion? Less than monthly [facility] How hard is it for y ou to pay for the very basics like food, housing, medical care, and heating Very hard [facility] Do you feel stress - tense, restless, nervous, or anxious, or unable to sleep at night because your mind is troubled all the time - these days [OSQ] Very much [facility] Start: 08-01-2022 Education 14 [facility] Start: 08-04-2022 Tobacco Comment vape, today [facility] Start: 10-12-2019 Alcohol Comment Occasional [facility] Start: 1970 Sex assigned at Not on file [facility] Start: 03-27-2015 Sex Male (finding) [facility] How many standard drinks containing alcohol do you have on a typical day? 10 or more [facility] Sexual Orientation [facility] Tobacco smoking stat [facility] Tobacco smoking consumption unknown [facility] Start: 03-03-2024 End: 03-19-2025 Tobacco smoking status MDIS Smokes tobacco daily (finding) [facility] Start: 03-07-2025 Gender identity Identifies as male gender (finding) [facility] Start: 03-07-2025 Sexual orientation Heterosexual (finding) [facility] Medical Equipment Procedure Code Equipment Code Equipment Origin al Text Equipment Identifier Dates ORIF, fracture, wrist Orthopaedic bone screw (non-sliding) [id number] [facility] Start: 03-19-2025 Goals Date Patient Goal Desired Activity /State Personal health goal Comment on above: Formatting of this n ote might be different from the original. Evaluation of progress towards goal: with support from friends and family, patient needs to fllow up with [facility] Functional Status Date Assessment Result Facility 01-09-2025 Functional Status N/A [facility] 02-02-2024 Functional Status N/A [facility] Clinical Notes 08-11-2021 to 04-03-2025 Lydia Drake PA-C - 04/03/2025 8:29 AM EDLydia Rivers PA-C - 04/02/2025 11:30 AM EDTTelephone Encounter - Lydia Drake PA-C - 03/07/2025 1:37 PM EDTPatient Instructions Note Date & Type Note Facility 04-03-2025 Note HNO ID: [id number] Author: LYDIA DRAKE PA-C Service: ? Author Type: Physician Drag Sawyer Type: Progress Notes Filed: 04/03/2025 08:41 Note [...] Anticipated surgical procedure: none Lydia Drake PA-C [facility] 04-03-2025 History of Presen t [...] Lydia Drake PA-C documented in this encounter [facility] 04-02-2025 History of Presen t illness Narrative COLORECTAL SURGERY VIRTUAL VISIT FOLLOW UP 04/02/2025 I have communicated my name and active licensure. The patient's identity and physical location were verified at the time of this visit. Either the patient or their legal printing supplies sales representative has been informed of the [...] February 28, 2025. He was referred to [facility] for anorectal manometry by Dr. Brady [...] laxatives and stool softeners; consider referral to [facility] if unable to see local GI anymore ( was told that [facility] would be managing him from [...] evaluate and manage orthostatic symptoms. Recording using [employer] software for draft documentation of the visit was discussed with the patient/authorized printing supplies sales representative; all questions welcomed and answered. Patient/authorized printing supplies sales representative agreed to proceed Lydia Drake PA-C [facility] I spent a total of 33 minutes on the date of the service which included preparing to see the patient, [id number] patient care, completing clinical documentation, obtaining and/or reviewing separately obtained history, performing a medically appropriate examination, counseling and educating the patient/family/caregiver, communicating with other HCPs (not separately reported), and care coordination (not separately reported). documented in this encounter [facility] 04-02-2025 Note HNO ID: [id number] Author: LYDIA DRAKE PA-C Service: ? Author Type: Physician Drag Sawyer Type: Progress Notes Filed: 04/02/2025 12:17 Note Text: COLORECTAL SURGERY VIRTUAL VISIT FOLLOW UP 04/02/2025 I have communicated my name and active licensure. The patient's identity and physical location were verified at the time of this visit. Either the patient or their legal printing supplies sales representative has been informed of the [...] February 28, 2025. He was referred to [facility] for anorectal manometry by Dr. Brady [...] trials of [employer] (more content not included)... [facility] 03-07-2025 Telephone encounter Note Called [...] ED with worsening sx. Lydia Drake PA-C [facility] 03-07-2025 Miscellaneous Notes Called patient back. [...] Lydia Drake PA-C Chai Barr [place] - [phone] Patient contacted the office regarding the baclofen that was prescribed to him. He reported that his back is feeling tighter than before and believes that a taking all these different medications may be causing this side effect. Unsure on what he should do. documented in this encounter [facility] 03-07-2025 Telephone encounter Note Chai Barr [place] - [phone] Patient contacted the office regarding the baclofen that was prescribed to him. He reported that his back is feeling tighter than before and believes that a taking all these different medications may be causing this side effect. Unsure on what he should do. [facility] 02-28-2025 Instructions Lydia Drake PA-C - 02/28/2025 1:31 PM EDT We discussed your chronic constipation and pelvic floor dysfunction: - I recommend starting baclofen suppositories, a muscle relaxer, to help with spasms and pain. Use one suppository as needed, up to twice daily. This prescription has been sent to [facility] in [place]. - Begin pelvic floor physical therapy to [...] for you. To make an appointment through [facility] call : [phone] If you are not close to a [facility] location, you can visit any one of these sites. Just put your zip code in and Pelvic Floor Physical Therapy places near you will populate. - [email or web address] - [email or web address] - [email or web address] - [email or web address] documented in this encounter [facility] 02-28-2025 History and physical note PELVIC [...] a compounded preparation from a pharmacy in [place], and previously used hydrocortisone. He has not [...] Weak - Relaxation on pushing: Minimal - Franchise Sales Manager Present: Yes Franchise Sales Manager present: Yes, [place] Assessment Anorectal Physiology tests reviewed at today's [...] which included preparing to see the patient, [id number] patient care, completing clinical documentation, obtaining and/or reviewing separately obtained history, performing a medically appropriate examination, counseling and educating the patient/family/caregiver, ordering medications, tests, or procedures, communicating with other HCPs (not separately reported), independently interpreting results (not separately reported), and communicating results to the patient/family/caregiver. Recording using [employer] software for draft documentation of the visit was discussed with the patient/authorized printing supplies sales representative; all questions welcomed and answered. Patient/authorized printing supplies sales representative agreed to proceed [facility] 02-28-2025 History and physical note PELVIC FLOOR COLON & RECTAL SURGERY Reason for visit: Review anorectal manometry and EMG results History of Present Illness: Chai Anrold is a 54 year old MALE who [...] a compounded preparation from a pharmacy in [place], and previously used hydrocortisone. He has not [...] Weak - Relaxation on pushing: Minimal - Franchise Sales Manager Present: Yes Franchise Sales Manager present: Yes, [place] Assessment Anorectal Physiology [...] which included preparing to see the patient, [id number] patient care, completing clinical documentation, obtaining and/or reviewing separately obtained history, performing a medically appropriate examination, counseling and educating the patient/family/caregiver, ordering medications, tests, or procedures, communicating with other HCPs (not separately reported), independently interpreting results (not separately reported), and communicating results to the patient/family/caregiver. Recording using [employer] software for draft documentation of the visit was discussed with the patient/authorized printing supplies sales representative; all questions welcomed and answered. Patient/authorized printing supplies sales representative agreed to proceed documented in this encounter [facility] 02-18-2025 Evaluation note Diagnosis Onset Date Resolution Fracture of fifth metatarsal bone of right foot acute February 18, 2025 1:30pm Fracture of fifth metatarsal bone of right foot acute March 13, 2025 3:11pm [facility] Work Phone: 1(435) 555-180606-30-2025 Evaluation note* Diagnosis Onset Date Resolution Status Admit Date Fracture of fifth metatarsal bone of right foot acute February 18 1:30pm Fracture of fifth metatarsal bone of right foot acute March 13 3:11pm Fracture of fifth metatarsal bone of right foot acute April 08, 2025 9:12am Other specified postprocedur al states noneactive April 08 9:12am [facility] Work Phone: 1(177) 497-605306-23-2025 Telephone encounter Note* Telephone Encounter - Chelle Christianson - 02/11/2025 9:38 AM EDT Recevied referral from Satish Blackwood fot pt referral for botox injections [facility]06-23-2025 Miscellaneous Notes* Telephone Encounter - Chelle Christianson - 02/11/2025 9:38 AM EDT Recevied referral from Satish [facility] fot pt referral for botox injections [facility] Miscellaneous Notes* Telephone Encounter - Linda Marc CMA - 12/31/2024 9:34 AM EDT I called and left message for pt to call back. Regarding his referral to Gastroenterology. George Kieran is retired. * Telephone Encounter - Barbara De La Torre CMA - 12/31/2024 9:34 AM EDT Can we send referral to Dr. Moreno in [place] [facility] Telephone encounter Note* Telephone Encounter - Linda Marc CMA - 12/31/2024 9:34 AM EDT I called and left message for pt to call back. Regarding his referral to Gastroenterology. George Alcaraz is retired. [facility]05-12-2025 Telephone encounter Note* Telephone Encounter - Barbara De La Torre CMA - 12/31/2024 9:34 AM EDT Can we send referral to Dr. Moreno in [place] [facility]04-28-2025 Miscellaneous Notes* Telephone Encounter - Barbara De La Torre CMA - 12/17/2024 3:24 PM EDT Patient called and stated he missed his apt in [place] with jaylyn/ent so they will not see him anymore. Can you refer him to someone else. * Telephone Encounter - Cisco Bonilla DO - 12/17/2024 3:24 PM EDT Okay. I sent another referral this time to a coremaker experimental in [place] -Dr. Alcaraz. If he can not make [...] usually routine to do. documented in [facility] Telephone encounter Note* Telephone Encounter - Barbara De La Torre CMA - 12/17/2024 3:24 PM EDT Patient called and stated he missed his apt in [place] with jaylyn/ent so they will not see him anymore. Can you refer him to someone else. [facility]04-28-2025 Telephone encounter Note* Telephone Encounter - Cisco Bonilla DO - 12/17/2024 3:24 PM EDT Okay. I sent another referral this time to a coremaker experimental in [place] Alcaraz. If he can not make it [...] treatment which is usually routine to do. [facility]04-21-2025 History of Present illness Narrative* Cisco [...] reveal any inflammatory bowel disease. Thegastroenterologist in [place] did not want to see him. He [...] appear clear Nose: Nose normal. Mouth/Throat: Lips: [place]. Mouth: Mucous membranes are moist. Dentition: Abnormal [...] and irritable bowel syndrome. documented in this [facility]03-14-2025 History of Present illness Narrative* Cisco Bonilla DO - 11/02/2024 1:58 PM EDT FORM FOR BRICKLAYER PAVING BRICK FILLED OUT documented [facility] Miscellaneous Notes* Telephone Encounter - Marisa Reinoso - 09/26/2024 2:19 PM EST New Patient NS 09/26/2024 * Telephone Encounter - Suki Islas RN - 09/26/2024 2:19 PM EST Discharge entered documented in [facility] Telephone encounter Note* Telephone Encounter - Marisa Reinoso - 09/26/2024 2:19 PM EST New Patient NS 09/26/2024 [facility]02-05-2025 Telephone encounter Note* Telephone Encounter - Suki Islas RN - 09/26/2024 2:19 PM EST Discharge entered [facility]01-22-2025 Miscellaneous Notes* Telephone Encounter - Betty Wild - 09/12/2024 2:21 PM EST [facility] Dr augustin did his colonoscopy. He wants him to see patrizia as a specialist instead. Alok words patrizia started it that is who he needs to follow up with explained to [facility] office that he does not specialize in that field that he is a primary care and theysaid that it does not matter Ditty will not see him. Can we please get him a referral to a different gastro. Also [facility] Nurse Danuta was rude and getting an [...] [facility] Telephone encounter Note* Telephone Encounter - Betty Wild - 09/12/2024 2:21 PM EST [facility] office is refusing to see him since [...] why we referred him to a specialist [facility]01-22-2025 Telephone encounter Note* Telephone Encounter - Betty Perlitaevelina - 09/12/2024 2:21 PM EST Can we get this as an urgent referral [facility]01-22-2025 Telephone encounter Note* Telephone Encounter - Cisco Bonilla DO - 09/12/2024 2:21 PM EST [facility]01-22-2025 Miscellaneous Notes* Telephone Encounter - [facility] Perlitaevelina - 09/12/2024 1:47 PM EST Patient called, metamucil is not covered by insurance but they will cover benifiber 240g [facility] [place] documented in [facility] Telephone encounter Note* Telephone Encounter - Bettygeorge Wild - 09/12/2024 1:47 PM EST Patient called, metamucil is not covered by insurance but they will cover benifiber 240g [facility] [place] [facility]01-21-2025 History of Present illness Narrative* Cisco Bonilla, DO - 09/11/2024 2:15 PM EST Subjective [...] have an appointment coming up with a coremaker experimental in September. He had to cancel his last appointment because he was having diarrhea and was afraid to leave the house because he might have an accident. The ER did give him Bentyl which did help. He did not think that less than helped at all. He stopped the FiberCon because it was not helping. He would rather have Metamucil. He called the coremaker experimental office and they suggested a cleaned out. [...] Exam Vitals reviewed. Exam conducted with a insurance inspector present (Leilani Emely MS 3). Constitutional: General: He is not [...] mouth in the morning. [facility] Miscellaneous Notes* Telephone Encounter - Betty Wild - 04/04/2024 10:24 AM EDT ----- Message from Dr. Cisco Bonilla DO sent at 03/15/2024 7:03 PM EDT ----- Regarding: GI/BP recheck Please set up * Telephone Encounter - Betty Wild - 04/04/2024 10:24 AM EDT Mailbox full * Telephone Encounter - Betty Wild - 04/04/2024 10:24 AM EDT Scheduled documented in this [facility]08-14-2024 Telephone encounter Note* Telephone Encounter - Bettygeorge Wild - 04/04/2024 10:24 AM EDT ----- Message from Dr. Cisco Bonilla DO sent at 03/15/2024 7:03 PM EDT ----- Regarding: GI/BP recheck Please set up [facility]08-[facility] Telephone encounter Note* Telephone Encounter - Bettygeorge Wild - 04/04/2024 10:24 AM EDT Mailbox full [facility]08-14-2024 Telephone encounter Note* Telephone Encounter - Bettygeorge Wild - 04/04/2024 10:24 AM EDT Scheduled [facility]07-25-[facility] History of Present illness Narrative* Cisco Bonilla [...] was getting liquidy stools-6 and 7 on Norton stool scale. He used fiber supplement in [...] needed for pain (cramping). documented in this encounter[facility]24 Miscellaneous Notes* Telephone Encounter - Betty [...] GoLYTELY sent to pharmacy documented in this encounterMem[facility]24 Telephone encounter Note* Telephone Encounter - Betty Wild - 02/13/2024 12:02 PM EDT Patient said suflave is 130 dollars, is there something else he can try or a coupon to use [facility]06-24-2024 Telephone encounter Note* Telephone Encounter - Linda Marc CMA - 02/13/2024 12:02 PM EDT Pt has medicaid My Bad Please SEND in the SUPREP. . [facility]06-[facility]24 Telephone encounter Note* Telephone Encounter - Jennyfer Augustin DO - 02/13/2024 12:02 PM EDT Message noted. The only prep that is covered is the old fashioned Golytely prep [facility]06-24-2024 Telephone encounter Note* Telephone Encounter - Gloria Rodriguez CMA - 02/13/2024 12:02 PM EDT He is Medicaid so whatever his insurance covers [facility]06-[facility]-2024 Telephone encounter Note* Telephone Encounter - Jennyfer Augustin DO - 02/13/2024 12:02 PM EDT Message noted. Rx for GoLYTELY sent to pharmacy [facility]06-11-2024 Miscellaneous Notes* Telephone Encounter - Barbara [...] EDT Left message via documented in this encounterMem[facility]24 Telephone encounter Note* Telephone Encounter - Barbara De La Torre CMA - 01/31/2024 3:09 PM EDT Patient called and was in the ER for Urinary re tension. His bowel movements ar still not good. Since I can not get him in for an ER follow up soon what do you suggest he do? He does see urology on [facility] Telephone encounter Note* Telephone Encounter - Cisco Bonilla DO - 01/31/2024 3:09 PM EDT He can use MiraLax 17 g in 8 oz of water daily [facility]06-11-2024 Telephone encounter Note* Telephone Encounter - Barbara De La Torre CMA - 01/31/2024 3:09 PM EDT Left message via VM [facility]04-19-2024 History of Present illness Narrative* SYLVESTER Levin - 12/09/2023 9:00 AM EDT [address] [facility] [phone] Patient: Chai Arnold Date of : 1970 [...] softeners pencilthin like a 4. On the Norton stool scale and he has tried Metamucil and MiraLax. He denies any hemorrhoids or blood in his stool. His last colonoscopy was 4 years ago that showed polyps and diverticulosis and he knows he is due for another colonoscopy next year. Patient has been struggling with weaning off his Xanax. 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 Resources such as Suboxone Clinic in [place] were given. It was also recommended that he apply at [facility] for primary care services [...] LEVIN APRN-CNP 12/09/23 1230 documented in this encounterMem[facility]01-11-2022 Evaluation note* Encounter Date Diagnosis Assessment Notes [...] Patient care instructions given in writting by [facility] document. [employer] Other 12-21-2021 Evaluation note* Encounter Date Diagnosis [...] Patient care instructions given in writting by [facility] document. [employer] Other Evaluation + Plan note Future Appointments Appointment Date:04/03/2024 01:00:00 PM Scheduled Provider:JOSEPH Allen APRN, Didi Martin Location:[facility] Appointment Type:URO Office Visit [facility] Evaluation + Plan note Future Appointments Appointment Date:04/11/2025 10:45:00 AM Scheduled Provider:Caitlyn CHAVIS, Vivian Lance Location:[facility] Digestive Health Appointment Type:[facility] Follow Up [facility] Dig[facility]ive Health evaluation noteNo assessment information available [facility] Work Phone: evaluation note* Diagnosis Irritable bowel syndrome with both constipation and diarrhea- Primary Essential hypertension, benign Anxiety Anxiety state, unspecified Encounter for screening for malignant neoplasm of prostate documented in this encounter [facility]* Diagnosis Irritable bowel syndrome with both constipation and diarrhea- Primary documented in this encounter [facility]* Diagnosis Irritable bowel syndrome with constipation- Primary Irritable bowel syndrome Gastroesophageal reflux disease, unspecified whether esophagitis present 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 ([facility]) documented in this encounter [facility]* Diagnosis Change in bowel habits- Primary Other symptoms involving digestive system Polyp of colon, unspecified part of colon, unspecified type documented in this encounter [facility]* Diagnosis Irritable bowel syndrome with both constipation and diarrhea- Primary Umbilical hernia without obstruction and without gangrene Incisional hernia, without obstruction or gangrene Anal fissure documented in this encounter [facility]* Diagnosis Well adult exam- Primary Routine [...] constipation and diarrhea documented in this encounter [facility]* Diagnosis Anal fissure- Primary documented in this encounter [facility]* Diagnosis Irritable bowel syndrome with both constipation and diarrhea- Primary [facility] Diagnosis Chronic idiopathic constipation- Primary Unspecified constipation Hepatitis C virus infection without hepatic coma, unspecified chronicity documented [facility] this encounter 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 Outlet dysfunction constipation Stress-related physiological response affecting medical condition Psychic factors associated with diseases classified elsewhere [facility] Diagnosis Onset Date Resolution Status Admit Date Fracture of fifth metatarsal bone of right foot acute February 18, 2025 1:30pm [facility] Work Phone: Evaluation note* Diagnosis Pelvic floor dysfunction Pelvic muscle wasting Pelvic floor dysfunction- Primary Pelvic muscle wasting Rectal spasm Anal spasm Constipation, unspecified constipation type documented in this encounter [facility] note* Diagnosis Pelvic floor dysfunction- Primary Pelvic muscle wasting Rectal spasm Anal spasm Constipation, unspecified constipation type [facility]* Diagnosis Anxiety Anxiety state, unspecified documented in this encounter [facility]* Diagnosis Constipation, unspecified constipation type- Primary Rectal spasm Anal spasm Pelvic floor dysfunction Pelvic muscle wasting Anxiety Anxiety state, unspecified Distressed about housing issues Other specified housing or economic circumstances Orthostatic dizziness [facility]* Diagnosis Rectal spasm- Primary Anal spasm Constipation, unspecified constipation type Pelvic floor dysfunction Pelvic muscle wasting Anxiety Anxiety state, unspecified Chronic abdominal pain Abdominal pain, unspecified site Chronic rectal pain Anal or rectal pain documented in this encounter [facility] Narrative - Reported* Type Description Date Medical History insomnia Medical History anxiety Medical History HTN Surgical History appendix removed Surgical History compartment syndrome left hand 2016 Hospitalization History see surgical hx [employer] [facility] [employer] Other Hospital course Narrative No data available for this section [facility] Hospital Discharge instructions Additional Instructions Wear leg bag with [place] catheter Follow-up with urology Return if symptoms are worseFirelands [facility] Work Phone: Hospital Discharge instructions No data available for this section [facility] Hospital Discharge instructions Additional Instructions Dr. [...] wearing your boot. You may take NSAIDs/Tylenol [id number] as indicated on the bottle. You should [...] be scheduled with Dr. Avina's office at [facility]. At your follow-up we will remove your splint and sutures. Please call to confirm your follow-up appointment. Dr. Ehsan Avina [facility] [address] [place] [address] [phone] Work Phone: Instructions* Attachments The following attachments cannot be sent through Care Everywhere. * IBS Diet (Macedonian) documented in this encounterProOur [facility] AndersonInstructionsNot on file documented in this encounterProMedica Health [...] this section [facility] Reason for referral (narrative)* Medication Prior Authorization - Pending Review Specialty Diagnoses / Procedures Referred By Contac t Referred To Contact Cisco Bonilla DO [address] [facility] [place] [address] Phone: tel: fax: Referral ID Status Reason Start Date Expiration Date V isits Requested Visits Authorized [id number] Pending Review 1 1 [facility]woodsOlocode SystemReason for referral (narrative)* Medication Prior Authorization - Pending Review Specialty Diagnoses / Procedures Referred By Hung t Referred To Contact Cisco Bonilla DO [address] [facility] [place] [address] Phone: tel: fax: Referral ID Status Reason Start Date Expiration Date V isits Requested Visits Authorized [id number] Pending Review 1 1 [facility] Unite[employer] Communication SystemReason for referral (narrative)* Medication Prior Authorization - Pending Review Specialty Diagnoses / Procedures Referred By Hung almanzar Referred To Contact Cisco Bonilla DO [address] [facility], [place] [address] Phone: tel: fax: Referral ID Status Reason Start Date Expiration Date V isits Requested Visits Authorized [id number] Pending Review [address] [facility] for referral (narrative)No reason for referral information availableUniversity Hospitals [facility] Work Phone: Summary Purpose Family [...] Contac t Referred To Contact Cisco Bonilla, DO [address] [facility], [facility] [place] [address] Referral ID Status Reason Start Date Expiration Date V isits Requested Visits Authorized [id number] Pending Review 03/14/2024 03/14/2025 1 1 Specialty Diagnoses / Procedures Referred By Contac t Referred To Contact Diagnoses Change in bowel habits Polyp of colon, unspecified part of colon, unspecified type Procedures Colonoscopy Cisco Bonilla, DO [address] [place] [address] Referral ID Status Reason Start Date Expiration Date V isits Requested Visits Authorized [id number] Pending Review 02/05/2024 02/04/2025 1 1 Additional Source Comments (unrecognized sect ion and content) No Status Records FoundNo Status Records FoundNo Status Records FoundNo Status Records FoundNo Status Records FoundNo Status Records FoundNo Status Records FoundNo Status Records Found INFORMATION SOURCE (unrecogn ized section and content) DATE CREATED AUTHOR 02/14/2018 [facility] DATE CREATED AUTHOR AUTHOR'S ORGANIZ ATION 03/29/2022 [facility] DATE CREATED AUTHOR AUTHOR'S ORGANIZ ATION 05/18/2024 [facility] DATE CREATED AUTHOR AUTHOR'S ORGANIZ ATION 12/10/2024 [facility] DATE CREATED AUTHOR AUTHOR'S ORGANIZ ATION 12/11/2024 [facility] DATE CREATED AUTHOR AUTHOR'S ORGANIZ ATION 03/31/2025 [facility] DATE CREATED AUTHOR AUTHOR'S ORGANIZ ATION 04/03/2025 [facility] DATE CREATED AUTHOR AUTHOR'S ORGANIZ ATION 05/09/2025 [facility] REASON FOR VISIT (unrecogniz ed section [...] Manometry Specialty Diagnoses / Procedures Referred By Hung almanzar Referred To Contact [facility] Diagnoses Pelvic floor dysfunction Procedures [facility] [place] ANORECTAL MANOMETRY ANORECTAL MANOMETRY Violette Maurer APRN.LEATHER CARVER [address] [place] [address] Phone: tel: fax: [facility] [address] [place] [address] Referral ID Status Reason Start Date Expiration Date V isits Requested Visits Authorized [id number] Closed Auto-Generate d Referral 02/21/2025 08/21/2025 1 1 Reason Comments New Patient Pelvic floor dysfunc tion Specialty Diagnoses / Procedures Referred By Contac t Referred To Contact [facility] Diagnoses Pelvic floor dysfunction Procedures [facility] ANORECTAL MANOMETRY ANORECTAL MANOMETRY Violette Maurer APRN.LEATHER CARVER [address] [place] [address] Phone: tel: fax: [facility] [address] [place] [address] Referral ID Status Reason Start Date Expiration Date V isits Requested Visits Authorized [id number] Closed Auto-Generate d Referral 02/21/2025 08/21/2025 1 [...] March 03, 2024 End: March 03, 2024 Chinese Medicine Practitioner Relationship Specialty Start Date End Date Cisco Bonilla DO [address] [place] [address] PCP - General Family Medicine 12/19/19 Chinese Medicine Practitioner Relationship Specialty Start Date End Date Cisco Bonilla DO [address] [place] [address] PCP - General Family Medicine 12/19/19 Chinese Medicine Practitioner Relationship Specialty Start Date End Date Cisco Bonilla DO [address], [place] [address] PCP - General Family Medicine 12/19/19 Chinese Medicine Practitioner Relationship Specialty Start Date End Date Carlos AlbertolindenCisco cao DO [address], [place] [address] PCP - General Family Medicine 12/19/19 Chinese Medicine Practitioner Relationship Specialty Start Date End Date GerardoCisco cao [address], [place] [address] PCP - General Family Medicine 12/19/19 Chinese Medicine Practitioner Relationship Specialty Start Date End Date Carlos AlbertolindenCisco cao [address], [place] [address] PCP - General Family Medicine 12/19/19 Chinese Medicine Practitioner Relationship Specialty Start Date End Date Carlos AlbertolindenCisco cao [address] [place] [address] PCP - General Family Medicine 12/19/19 Chinese Medicine Practitioner Relationship Specialty Start Date End Date Carlos AlbertolindenCisco cao [address] [place] [address] PCP - General Family Medicine 12/19/19 Chinese Medicine Practitioner Relationship Specialty Start Date End Date Carlos AlbertolindenCisco cao [address] [place] [address] PCP - General Family Medicine 12/19/19 Chinese Medicine Practitioner Relationship Specialty Start Date End Date Cisco Bonilla DO [address], [place] [address] PCP - General Family Medicine 12/19/19 Chinese Medicine Practitioner Relationship Specialty Start Date End Date Carlos AlbertolindenCisco cao DO [address], [place] [address] PCP - General Family Medicine 12/19/19 Chinese Medicine Practitioner Relationship Specialty Start Date End Date Carlos AlbertolindenCisco cao DO [address], [place] [address] PCP - General Family Medicine 12/19/19 Chinese Medicine Practitioner Relationship Specialty Start Date End Date Carlos AlbertolindenCisco cao DO [address], [place] [address] PCP - General Family Medicine 12/19/19 Chinese Medicine Practitioner Relationship Specialty Start Date End Date Carlos AlbertolindenCisco cao DO [address], [place] [address] PCP - General Family Medicine 12/19/19 Chinese Medicine Practitioner Relationship Specialty Start Date End Date Carlos AlbertolindenCisco cao DO [address], [place] [address] PCP - General Family Medicine 12/19/19 Chinese Medicine Practitioner Relationship Specialty Start Date End Date Carlos AlbertolindenCisco cao DO [address], [place] [address] PCP - General Family Medicine 12/19/19 Chinese Medicine Practitioner Relationship Specialty Start Date End Date Cisco Bonilla DO [address], [place] [address] PCP - General Family Medicine 12/19/19 Chinese Medicine Practitioner Relationship Specialty Start Date End Date Cisco Bonilla DO [address], [place] [address] PCP - General Family Medicine 12/19/19 Chinese Medicine Practitioner Relationship Specialty Start Date End Date Tyson Tolliver MD PCP - General Family Medicine 11/11/15 Vivian Brady MD [address] [address] Gastroenterology 01/16/25 Chinese Medicine Practitioner Relationship Specialty Start Date End Date Cisco Bonilla DO [address], [place] [address] PCP - General Family Medicine 12/19/19 Chinese Medicine Practitioner Relationship Specialty Start Date End Date Tyson Tolliver MD PCP - General Family Medicine 11/11/15 Vivian Brady MD [address] [address] Gastroenterology 01/16/25 Team Status: Inactive Member Role Status Dates Cisco Bonilla DO Primary Care Provider Active Start: February 18, 2025 End: February 18, 2025 Ehsan Avina DO Attending Provider Active S tart: February 18, 2025 End: February 18, 2025 Chinese Medicine Practitioner Relationship Specialty Start Date End Date Tyson Tolliver MD PCP - General Family Medicine 11/11/15 Vivian Brady MD [address] [address] Gastroenterology 01/16/25 Chinese Medicine Practitioner Relationship Specialty Start Date End Date Tyson Tolliver MD PCP - General Family Medicine 11/11/15 Vivian Brady MD [address] [place] [id number] Gastroenterology 01/16/25 Chinese Medicine Practitioner Relationship Specialty Start Date End Date Tyson Tolliver MD PCP - General Family Medicine 11/11/15 Vivian Brady MD [address] [address] Gastroenterology 01/16/25 Chinese Medicine Practitioner Relationship Specialty Start Date End Date Tyson Tolliver MD PCP - General Family Medicine 11/11/15 Vivian Brady MD [address] [address] Gastroenterology 01/16/25 Team Status: Active Member Role [...] 2025 End: March 19, 2025 Ehsan Avina , DO Attending Provider Active S tart: March 19, 2025 End: March 19, 2025 Chinese Medicine Practitioner Relationship Specialty Start Date End Date Cisco Bonilla DO [address] [facility] [place] [address] PCP - General Family Medicine 12/19/19 Chinese Medicine Practitioner Relationship Specialty Start Date End Date Tyson Tolliver MD PCP - General Family Medicine 11/11/15 Vivian Brady MD [address] [place] [address] Gastroenterology 01/16/25 Chinese Medicine Practitioner Relationship Specialty Start Date End Date Tyson Tolliver MD PCP - General Family Medicine 11/11/15 Vivian Brady MD [address] [address] Gastroenterology 01/16/25 Chinese Medicine Practitioner Relationship Specialty Start Date End Date Tyson Tolliver MD PCP - General Family Medicine 11/11/15 Vivian Brady MD [address] [address] Gastroenterology 01/16/25 Team Status: Inactive Member Role [...] or prosecute any alcohol or drug abuse patient.[facility] the event this information is protected by the Federal Confidentiality of Alcohol and Drug Abuse Patient Records regulations: The Federal rules restrict any use of the information to criminally investigate or prosecute any alcohol or drug abuse patient.[facility] HospitalIn the event this information is protected by the Federal Confidentiality of Alcohol and Drug Abuse Patient Records regulations: The Federal rules restrict any use of the information to criminally investigate or prosecute any alcohol or drug abuse patient.[facility] HospitalIn the event this information is protected by the Federal Confidentiality of Alcohol and Drug Abuse Patient Records regulations: The Federal rules restrict any use of the information to criminally investigate or prosecute any alcohol or drug abuse patient.[facility] HospitalIn the event this information is protected by the Federal Confidentiality of Alcohol and Drug Abuse Patient Records regulations: The Federal rules restrict any use of the information to criminally investigate or prosecute any alcohol or drug abuse patient.[facility] HospitalIn the event this information is protected by the Federal Confidentiality of Alcohol and Drug Abuse Patient Records regulations: The Federal rules restrict any use of the information to criminally investigate or prosecute any alcohol or drug abuse patient.[facility] the event this information is protected by the Federal Confidentiality of Alcohol and Drug Abuse Patient Records regulations: The Federal rules restrict any use of the information to criminally investigate or prosecute any alcohol or drug abuse patient.[facility] the event this information is protected by the Federal Confidentiality of Alcohol and Drug Abuse Patient Records regulations: The Federal rules restrict any use of the information to criminally investigate or prosecute any alcohol or drug abuse patient.[facility] the event this information is protected by the Federal Confidentiality of Alcohol and Drug Abuse Patient Records regulations: The Federal rules restrict any use of the information to criminally investigate or prosecute any alcohol or drug abuse patient.[facility] FOR RECORDS PERTAINING TO PATIENTS WHO ARE [...] BE BASED ON THE PRIMARY CLINICAL RECORDS. [facility] [employer] [facility]. provides no warranty or guarantee of the accuracy or completeness of information in this document.
[2025-05-09 17:13] VITALS: BP 177/109; PULSE 97; TEMP 36.9; O2SAT 100; BMI 37.1
--- NOTE | 2025-05-09 23:20 | ED.GENADUL1 ---
HPI HPI - General Adult General Chief complaint: Recheck/Abnormal Lab/Rx Stated complaint: RECTAL PAIN Source: patient Mode of arrival: walk-in Limitations: no limitations Related Data Previous Rx's ?Medication ?Instructions ?Recorded ondansetron 4 mg disintegrating 4 mg PO Q6H PRN nausea and 05/06/24 tablet vomiting #12 tabs dicyclomine 20 mg tablet 20 mg PO QID PRN abdominal pain 09/05/24 #12 tabs hydrocodone 5 mg-acetaminophen 325 1 tab PO Q6H PRN pain 3 days #12 02/14/25 mg tablet tabs ciprofloxacin HCl 500 mg tablet 500 mg PO Q12H #20 tabs 05/07/25 (Cipro) hydrocodone 5 mg-acetaminophen 325 1 tab PO Q6H PRN pain 5 days #20 05/07/25 mg tablet tabs metronidazole 500 mg tablet 500 mg PO TID #30 tabs 05/07/25 ondansetron 4 mg disintegrating 4 mg PO Q6H PRN nausea and 05/07/25 tablet vomiting #20 tabs Allergies Allergy/AdvReac Type Severity Reaction Status Date / Time No Known Drug Allergies Allergy Verified 05/09/25 17:13 Opioid HPI Opioid Management Most Recent Opioid Data: Last Pain Scale 8 Today, 17:13 Last MAR Pain Assessment 05/08/25, 01:29 Ur Phencyclidine Scrn, (NEGATIVE) Negative 05/06/24, 15:20 PFSH PFSH Social History Little interest or pleasure in doing things: not at all Feeling down, depressed, or hopeless: not at all Exam Constitutional Vital Signs, click to edit/add: Last Vital Signs Temp 98.4 F 05/09/25 17:13 Pulse 97 H 05/09/25 17:13 Resp 28 H 05/09/25 17:13 BP 177/109 H 05/09/25 17:13 Pulse Ox 100 05/09/25 17:13 O2 Del Method Room Air 05/09/25 17:13 Course Vital Signs Vital signs: Vital Signs Temperature 98.4 F 05/09/25 17:13 Pulse Rate 97 H 05/09/25 17:13 Respiratory Rate 28 H 05/09/25 17:13 Blood Pressure 177/109 H 05/09/25 17:13 Pulse Oximetry 100 05/09/25 17:13 Oxygen Delivery Method Room Air 05/09/25 17:13 Temperature 98.4 F 05/09/25 17:13 Pulse Rate 97 H 05/09/25 17:13 Respiratory Rate 28 H 05/09/25 17:13 Blood Pressure 177/109 H 05/09/25 17:13 Pulse Oximetry 100 05/09/25 17:13 Oxygen Delivery Method Room Air 05/09/25 17:13 Medical Decision Making MDM Narrative Medical decision making narrative: Patient left waiting room before I was able to see him. Left without being seen by ED provider. Discharge Plan Discharge Patient Disposition: Left Without Being Seen Discharge Date/Time: 05/09/25 21:05
== END 2025-05-09 21:05 | disposition left against medical advice (07) ==
PROVIDERS: Emergency Provider Student in an Organized Health Care Education/Training Program; PCP Family Medicine
DX: Z53.21 Procedure and treatment not carried out due to patient leaving prior to being seen by health care provider (principal)
CPT/HCPCS: 99281

== ENCOUNTER 2025-05-10 01:38 | Emergency (ER) | payer OTHER, SELFPAY ==
--- OUTSIDE RECORDS SUMMARY | 2024-03-07 20:00 | XMS_ITS | Continuity of Care Document ---
Author Organization [facility] Address [address] [place] [phone] Phone Care Team Providers Care Resource Room Special Education Teacher Name Role Phone Diamond Savage Unavailable Unavailable Allergies, Adverse Reactions, Alerts Substance Reaction Status Criticality No Known Allergies Active No Inform ation Procedures Procedure Date Acute Detox Train Brake Operator ROUTINE VENIPUNCTURE DRUG TEST PRSMV DIR OPT OBS Acute Detox Train Brake Operator Acute Detox Train Brake Operator Intraoral-complete Series (bw) Oral Hygiene Instruction Assessment Of A Patient Acute Detox Train Brake Operator Acute Detox Train Brake Operator DRUG TEST PRSMV DIR OPT OBS Acute Detox Train Brake Operator Acute Detox Train Brake Operator Acute Detox Train Brake Operator ROUTINE VENIPUNCTURE DRUG TEST PRSMV DIR OPT OBS Acute Detox Train Brake Operator Advance Directives Directive Yes / No Effective Date File Name No Information Encounters Encounter Description Practice Location Reason(s) For Visit Diagnoses Date Provider Providers Copied on Encounter [facility], [address] [place] [address], [id number] , tel:+ [phone] [facility] No Information Hussein Fields. [address] [place] [address], [id number] , [place]. tel:[phone] [facility], [address] [place], [place], [id number] , [place] tel: [phone] [facility] No Information 4 Klidas Diamond. [address] [place], [place], [id number] , [place]. tel: [phone] [facility], [address] [place], [place], [id number] , [place] tel: [phone] [facility] No Information 4 Klidas Diamond. [address] [place], [place], [id number] , [place]. tel: [phone] [facility], [address] [place], [place], [id number] , [place] tel: [phone] [facility] (chief complaint) [facility] 4 Thomas Venegas. [address] [place], [place], [id number] , [place]. tel: [phone] [facility], [address] [place], [place], [id number] , [place] tel: [phone] [facility] No Information 4 Klidas Diamond. [address] [place], [place], [id number] , [place]. tel: [phone] [facility], [address] [place], [place], [id number] , [place] tel: [phone] [facility] No Information 4 Klidas Diamond. [address] [place], [place], [id number] , [place]. tel: [phone] [facility], [address] [place], [place], [id number] , [place] tel: [phone] [facility] No Information 4 Klidas Diamond. [address] [place], [place], [id number] , [place]. tel: [phone] [facility], [address] [place], [place], [id number] , [place] tel: [phone] [facility] No Information 0-202 4 Klidas Diamond. [address] [place], [place], [id number] , [place]. tel: [phone] [facility], [address] [place], [place], [id number] , [place] tel: [phone] [facility] No Information 0 9-202 4 Klidas Diamond. [address] [place], [place], [id number] , [place]. tel: [phone] [facility], [address] [place] [address], [id number] , [place] tel: [phone] [facility] No Information 8 4 Klidas Diamond. [address] [place], [place], [id number] , [place]. tel: [phone] Family History Family Member Type Diagnosis Age At Onset No Information Payers Payer name Insurance type Covered green party ID Ronan avalosdenice(s) [place] Medicaid Primary [id number] Social History Type Description Quantity Date Captured [...]
[2025-05-10 01:40] VITALS: BP 170/111; PULSE 103; TEMP 36.9; O2SAT 100; BMI 25.8
--- OUTSIDE RECORDS SUMMARY | 2025-05-10 01:45 | XMS_ITS | Encounter Summary ---
Author Organization [employer] tem Address [id number] [address] [place] [address] Care Team Providers Care Financial Institution Branch Manager Name Role Phone Cisco Blanc Primary Care Provider Encounter Details Date Type Department Care Team (Late st Contact Info) Description 02/06/2024 [facility] [address] [place] [phone] Linda Marc CMA Social History Tobacco Use [...] How often do you attend confucianism or baptism serv ices? Never 08/01/2022 Active [...] Answer Date Recorded Total Score 16 12/09/2023 [facility] [place] of Occupat ional Health - Occupational Stress [...] Recorded Do you need help finding a [employer] al career center and/or a training program? [...] encounter Miscellaneous Notes * Telephone Encounter - Lnida Marc CMA - 02/06/2024 12:52 PM EDT Chai is scheduled for a Colonoscopy with you on TuesdayFebruary 16 at 14:30 told him to arrive by 1:30and pt states he would like the S[facility] his pharmacy is [facility] in [place]. He is a Dr Blanc pt. Change [...] family, patient needs to fllow up with [facility] documented as of this encounter Visit Diagnoses Not on filedocumented in this encounter Additional Health Concerns Assessment Noted Time PHQ-9 Depression Total Score: 16 024 8:43 AM EDT documented as of this encounter Care Teams Financial Institution Branch Manager Relationship Specialty Start Date End Date Cisco Blanc DO [address], [facility] [place] [address] PCP - General Family Medicine 12/19/19 documented as of this encounter
--- OUTSIDE RECORDS SUMMARY | 2025-05-10 01:45 | XMS_ITS | Encounter Summary ---
Author Organization [employer] tem Address [id number] [address] [place] [address] Care Team Providers Care Fly Tier Name Role Phone Cisco Blanc Primary Care Provider [phone] Encounter Details Date Type Department Care Team (Late st Contact Info) Description 02/13/2024 [facility] [address] [place] [phone] Linda Marc CMA Social History Tobacco Use [...] How often do you attend congregational or restoration serv ices? Never 08/01/2022 Active [...] Answer Date Recorded Total Score 16 12/09/2023 [facility] [place] of Occupat ional Health - Occupational Stress [...] Recorded Do you need help finding a [employer] al career center and/or a training program? [...] family, patient needs to fllow up with [facility] documented as of this encounter Visit Diagnoses Not on filedocumented in this encounter Additional Health Concerns Assessment Noted Time PHQ-9 Depression Total Score: 16 024 8:43 AM EDT documented as of this encounter Care Teams Fly Tier Relationship Specialty Start Date End Date Cisco Blanc DO [address] [place], [place] [address] PCP - General Family Medicine 12/19/19 documented as of this encounter
--- OUTSIDE RECORDS SUMMARY | 2025-05-10 01:45 | XMS_ITS | Encounter Summary ---
Author Organization [employer] tem Address [id number] [address] [place] [address] Care Team Providers Care Apple Picking Supervisor Name Role Phone Cisco Blanc Primary Care Provider Encounter Details Date Type Department Care Team (Late st Contact Info) Description 02/13/2024 Orders Only [facility] Internal Medicine - Family Medicine [address] [place] [phone] Ty Burciaga DO [address] [place] [address] Change in bowel habits (Primary Dx) Social [...] week 08/01/2022 How often do you attend mu-ism or islam serv ices? Never 08/01/2022 Active [...] Answer Date Recorded Total Score 16 12/09/2023 [facility] of Occupat ional Health - Occupational [...] Recorded Do you need help finding a [facility] career center and/or a training program? [...] needs to fllow up with [facility] Dc documented as of this encounter Visit Diagnoses Diagnosis Change in bowel habits- Primary Other symptoms involving digestive system documented in this encounter Additional Health Concerns Assessment Noted Time PHQ-9 Depression Total Score: 16 024 8:43 AM EDT documented as of this encounter Care Teams Apple Picking Supervisor Relationship Specialty Start Date End Date Cisco Blanc DO [address] [facility] [place] [address] PCP - General Family Medicine 12/19/19 documented as of this encounter
--- OUTSIDE RECORDS SUMMARY | 2025-05-10 01:45 | XMS_ITS | Encounter Summary ---
Author Organization [employer] tem Address [id number] [address] [place] [address] Care Team Providers Care Caregivers Non Medical Name Role Phone Cisco Blanc Primary Care Provider [phone] Encounter Details Date Type Department Care Team (Late st Contact Info) Description 02/14/2024 [facility] [address] [place] [phone] Linda Marc CMA Social History Tobacco Use [...] week 08/01/2022 How often do you attend lutheran or hindu serv ices? Never 08/01/2022 Active [...] Answer Date Recorded Total Score 16 12/09/2023 [facility] [place] of Occupat ional Health - Occupational Stress [...] Recorded Do you need help finding a [employer] al career center and/or a training program? [...] him know that Dr Burciaga sent in [place] to his pharmacy also Isent him a [...] documented as of this encounter Care Teams Caregivers Non Medical Relationship Specialty Start Date End Date Cisco Blanc DO [address], [facility] [place] [address] PCP - General Family Medicine 12/19/19 documented as of this encounter
--- OUTSIDE RECORDS SUMMARY | 2025-05-10 01:45 | XMS_ITS | Encounter Summary ---
Author Organization [employer] tem Address [id number] [address] [place] [address] Care Team Providers Care Cement Tester Assistant Name Role Phone Cisco Blanc Primary Care Provider Encounter Details Date Type Department Care Team (Late st Contact Info) Description 02/14/2024 Orders Only [facility] Internal Medicine - Family Medicine [address] [place] [phone] Ty Burciaga DO [address] [place] [address] Change in bowel habits (Primary Dx) Social [...] How often do you attend mu-ism or roman catholic serv ices? Never 08/01/2022 [...] Answer Date Recorded Total Score 16 12/09/2023 [facility] of Occupat ional Health - [...] Recorded Do you need help finding a [facility] career center and/or a training [...] documented as of this encounter Care Teams Cement Tester Assistant Relationship Specialty Start Date End Date Cisco Blanc DO [address] [facility] [facility], [facility] [place] [address] PCP - General Family Medicine 12/19/19 documented as of this encounter
--- OUTSIDE RECORDS SUMMARY | 2025-05-10 01:45 | XMS_ITS | Encounter Summary ---
Author Organization [employer] tem Address [id number] [address] [place] [address] Care Team Providers Care Mastercam Programmer Name Role Phone Cisco Blanc Primary Care Provider Encounter Details Date Type Department Care Team (Late st Contact Info) Description 02/06/2024 Orders Only [facility] Internal Medicine - Family Medicine [address] [place] [phone] Ty Burciaga DO [address] [place] [address] Change in bowel habits (Primary Dx) Social [...] week 08/01/2022 How often do you attend zoroastrian or adventist serv ices? Never 08/01/2022 Active [...] Answer Date Recorded Total Score 16 12/09/2023 [facility] of Occupat ional [...] to fllow up with [facility] Dc documented as of this encounter Visit Diagnoses Diagnosis Change in bowel habits- Primary Other symptoms involving digestive system documented in this encounter Additional Health Concerns Assessment Noted Time PHQ-9 Depression Total Score: 16 024 8:43 AM EDT documented as of this encounter Care Teams Mastercam Programmer Relationship Specialty Start Date End Date Cisco Blanc DO [address] [facility] [place] [address] PCP - General Family Medicine 12/19/19 documented as of this encounter
--- OUTSIDE RECORDS SUMMARY | 2025-05-10 01:45 | XMS_ITS | Clinical Summary ---
Author Organization [employer] tem Address [id number] [address] [place] [address] Care Team Providers Care Pleat Taper Name Role Phone Carlos AlbertoCisco tang Primary [...] Encounters Date Type Department Care Team Description 05/08/2025 Orders Only [facility] Internal Medicine - Family Medicine [address] [place] [address] Ref Prov, Not In System 04/11/2025 Orders Only [facility] Internal Medicine - Family Medicine [address] [place] [address] Ref Prov, Not In System 03/22/2025 Refill [facility] Internal Medicine - Family Medicine [address] [place] [phone] iCsco Blanc G, DO Anxiety from Last 3 Months Immunizations Immunization Administration [...] week 08/01/2022 How often do you attend restorationist or orthodox serv ices? Never 08/01/2022 Active Member [...] Answer Date Recorded Total Score 21 12/10/2024 [facility] [place] of Occupat ional Health - Occupational Stress [...] Td or Tdap) 10/28/2023 10/27/2013 COVID-19 Vaccine ( - season) 2025 06/20/2021, 12/08/2020, 11/18/2020 Influenza [...] family, patient needs to fllow up with [facility] Medical Devices Not on file Procedures Procedure Name Priority Date/Time Associated Diagnosis Comments XR ABDOMEN AP 1 VW Routine 05/07/2025 9: 17 AM EDT COMPREHENSIVE METABOLIC PANEL Routine 03/18/2025 2:19 PM EDT CBC W AUTO DIFF BLD Routine 03/18/2025 1 2:31 PM EDT PROVATION COLONOSCOPY Routine 02/17/2024 1:59 PM EDT from Last 3 Months or Most Recently Relevant to Health Maintenance Results * X-ray abdomen ap 1 view (05/07/2025 9:17 AM EDT) Anatomical Region Laterality Modality Body, Abdomen N/A Computed Radiogr aphy us Not In System Ref Prov IMG DIAGNOSTIC IMAGING OR DERABLES Final Result * Comprehensive metabolic panel (03/18/2025 2:19 PM EDT) Blood Venous blood / Unknown us Not In System Ref Prov LAB BLOOD ORDERABLES Margy l Result Performing Organization Address City/[facility]/ZIP Co de Phone Number MANUALLY TRANSCRIBED RESULTS * CBC W Auto Diff Bld (03/18/2025 12:31 PM EDT) us Not In System Ref Prov LAB BLOOD ORDERABLES Margy l Result MANUALLY TRANSCRIBED RESULTS * Colonoscopy Report (02/17/2024 [...] Personal/Family Self 1970 [address] [place] [address] [employer] * Guarantor: [id number] Account Type Relation to Patient Date of Phone Billing Address Corporate Employer * Guarantor: WESTLEY CUNNINGHAM Account Type Relation to Patient Date of Phone Billing Address Corporate Other [address] [place] [address] * Guarantor: MILKA CHRISTY Account Type Relation [...] 1:54 PM 01/17/2018 3:11 PM Care Teams Pleat Taper Relationship Specialty Start Date End Date Cisco Blanc DO [address], [place] [address] PCP - General Family Medicine 12/19/19
--- OUTSIDE RECORDS SUMMARY | 2025-05-10 01:45 | XMS_ITS | Encounter Summary ---
Author Organization [employer] tem Address [id number] [address] [place] [address] Care Team Providers Care Outreach Coordinator Name Role Phone Cisco Blanc Primary Care Provider Encounter Details Date Type Department Care Team (Late st Contact Info) Description 04/11/2025 Orders Only [facility] Internal Medicine - Family Medicine [address] [place] [address] Ref Prov, [place] [address] Social History Tobacco Use Types Packs/Day Years Used Date Smoking Tobacco: Former Cigarettes 1 34 1 09/23/1984 - 12/20/2018 Passive Smoke Exposure: Past Smokeless Tobacco: Never Comments:vape, today Alcohol Use Standard Drinks/Week Comments Yes 0 (1 standard drink = 0.6 oz pur e alcohol) Occasional C Utilities Answer Date Recorded In the past 12 months has [employer], gas, oil, or water [employer] threatened to shut off services in your [...] How often do you attend zoroastrianism or christian serv ices? Never 08/01/2022 Active [...] PHQ-2 Answer Date Recorded Total Score 12/10/2024 [facility] of Occupat ional [...] family, patient needs to fllow up with [facility] documented as of this encounter [...] ORDERABLES Margy l Result Performing Organization Address City/[facility] Co de Phone Number MANUALLY TRANSCRIBED RESULTS * CBC W Auto Diff Bld (03/18/2025 12:31 PM EDT) us Not In System Ref Prov LAB BLOOD ORDERABLES Margy l Result Performing Organization Address City/[facility] Co de Phone Number MANUALLY TRANSCRIBED RESULTS documented in this encounter Visit Diagnoses Not on filedocumented in this encounter Additional Health Concerns Assessment Noted Time PHQ-9 Depression Total Score: 21 025 1:04 PM EDT documented as of this encounter Care Teams Outreach Coordinator Relationship Specialty Start Date End Date Furlong, Cisco G, DO [address] [place] [address] PCP - General Family Medicine 12/19/19 documented as of this encounter
--- OUTSIDE RECORDS SUMMARY | 2025-05-10 01:45 | XMS_ITS | Encounter Summary ---
Demographics Address [address] [facility] [place] [address] Home Phone Mobile Phone Email Address Email Address Preferred Language ENG Marital Status Single Catholic Affiliation Unknown Race White Ethnic Group or Author Organization [facility] Address [address] [place] [address] Care Team Providers Care Skid Wrapper Name Role Phone Tyson Fonseca MD Primary Care Provider [phone] Vivian Brady MD Unavailable [phone] Source Comments In the event this information is protected by the Federal Confidentiality of Alcohol and Drug AbusePatient Records regulations: The Federal rules restrict any use of the information to criminally investigate or prosecute any alcohol or drug abuse patient.[facility] Encounter Details Date Type Department Care Team (Late st Contact Info) Description 02/20/2025 Patient Msg Colorectal Surgery [address] [address] Violette Maurer APRN.[facility] [address] [place] [address]. [place] [phone] anorectal manometry ordered. Social History Tobacco Use [...] on filedocumented in this encounter Care Teams Skid Wrapper Relationship Specialty Start Date End Date Tyson Fonseca MD PCP - General Family Medicine 11/11/15 Vivian Brady MD [address] [place] [address] Gastroenterology 01/16/25 documented as of this encounter
--- OUTSIDE RECORDS SUMMARY | 2025-05-10 01:45 | XMS_ITS | Clinical Summary ---
Author Organization [facility] Address [address] [place] [address], [address] [place] [address] Care Team Providers Care Seismograph Shooter Name Role Phone Tyson Fonseca MD Primary [...] of Treatment Not on file Care Teams Seismograph Shooter Relationship Specialty Start Date End Date Tyson Fonseca MD PCP - General 07/09/16
--- OUTSIDE RECORDS SUMMARY | 2025-05-10 01:45 | XMS_ITS | Encounter Summary ---
Demographics Address [address] [facility] [place] [address] Home Phone Mobile Phone Email Address Email Address Preferred Language ENG Marital Status Single Alevism Affiliation Unknown Race White Ethnic Group or Author Organization [facility] Address [address] [place] [address] Care Team Providers Care Paper Deliverer Name Role Phone Tyson Fonseca MD Primary Care Provider [phone] Vivian Brady MD Unavailable [phone] Source Comments In the event this information is protected by the Federal Confidentiality of Alcohol and Drug AbusePatient Records regulations: The Federal rules restrict any use of the information to criminally investigate or prosecute any alcohol or drug abuse patient.[facility] Encounter Details Date Type Department Care Team (Late st Contact Info) Description 02/15/2025 Patient Msg General Surgery [address] [place] [phone] Provider, Ccwaqar Follow up from phone call [...] on filedocumented in this encounter Care Teams Paper Deliverer Relationship Specialty Start Date End Date Tyson Fonseca MD PCP - General Family Medicine 11/11/15 Vivian Brady MD [address] [place] [address] Gastroenterology 01/16/25 documented as of this encounter
--- OUTSIDE RECORDS SUMMARY | 2025-05-10 01:45 | XMS_ITS | Clinical Summary ---
Author Organization [facility] Address [address] [place] [address] Care Team Providers Care Mechanical Energy Engineer Name Role Phone Tyson Fonseca MD Primary Care Provider [phone] Vivian Brady MD Unavailable [phone] Allergies No known active allergies Medications [...] Description 04/03/2025 Patient Msg Colorectal Surgery [address] [phone] Lydia Drake PA-C Follow up from virtual visit 04/03/2025 Patient Update Colorectal Surgery [address] [address] Lydia Drake PA-C Pelvic Floor Conference 04/02/2025 11:30 AM EDT [facility] Colorectal Surgery [address] [phone] Lydia Drake PA-C Constipation, unspecified constipation type (Primary Dx); Rectal spasm; Pelvic floor dysfunction; Anxiety; Distressed about housing issues; Orthostatic dizziness 03/26/2025 Refill Colorectal Surgery [address] [address] Lydia Drake PA-C Refill Request 03/21/2025 Travel 03/08/2025 Abstract Colorectal Surgery [address] [address] Suma Navarrete DO 03/07/2025 Telephone Colorectal Surgery [address] [address] Lydia Drake PA-C Patient Update 03/01/2025 Patient Msg Colorectal Surgery [address] [address] Lydia Drake PA-C Follow up from visit 02/28/2025 1:00 PM EDT Office Visit Colorectal Surgery [address] [phone] Lydia Drake PA-C Pelvic floor dysfunction (Primary Dx); Rectal spasm; Constipation, unspecified constipation type 02/28/2025 12:30 PM EDT Nurse Visit Colorectal Surgery [address] [phone] Sahil Bergeron RN Pelvic floor dysfunction 02/20/2025 Patient Ms Colorectal Surgery 2048 [place] [address] Violette Maurer APRN.TELEGRAPHIC TYPEWRITER REPAIRER anorectal manometry ordered. 02/20/2025 Orders Only Colorectal Surgery [address] [phone] Violette Maurer APRN.LIDA Pelvic floor dysfunction (Primary Dx) 02/15/2025 Patient Ms General Surgery 2048 [place] [address] Provider, [facility] Follow up from phone call 02/15/2025 Travel 02/11/2025 Telephone Colorectal Surgery [address] [phone] Ashley Hayward MD Appointment (Left vm we received referral for botox injections) from Last 3 Months Social History Tobacco Use Types Packs/Day Years Used Date Smoking Tobacco: Never Assessed Area Deprivation Index Answer Date Juan Carlos rded National Score (1-100), lower number is lower ri sk 93 02/28/2025 State Score (1-10), lower number is lower risk 9 02/28/2025 Data from: https://www.neighborhoodatlas.medicine.[facility].edu/. Last address used for calculation [address] [...] Name Priority Date/Time Associated Diagnosis Comments ADULT [place] ANORECTAL MANOMETRY Routine 02/28/2025 Pelvic floor dysfunction PT ED PATIENT INFORMATION 02/12/2025 from Last 3 Months Results * ADULT [place] ANORECTAL MANOMETRY (02/28/2025) Anatomical Region Laterality Modality Other Narrative 02/28/2025 PATIENT NAME: Harlan Arnold PATIENT IDENTITY VERIFICATION COMPLETED USING TWO (2) IDENTIFIERS: Name and Date of confirmed by patient verbally. Referred by: Violette Maurer APRN.CNP Reason for testing: constipation Ileoanal pouch: No SENSITIVE EXAMINATION CONSENT: The sensitive examination was discussed with the Patient or Patient's Authorized Gauge Controller. As applicable, any other physician, advance practice provider, medical student, or other health professional student that will be observing or involved in the sensitive examination for educational or training purposes was discussed with the Patient or Authorized Gauge Controller. The Patient or Authorized Gauge Controller has agreed to proceed with the sensitive examination. Eyelet Riveter offered:Patient accepts, visit chaperoned by Antonieta PAYNE,RN [...] Colon & Rectal Surgery us Violette Maurer APRN.TELEGRAPHIC TYPEWRITER REPAIRER DIGESTIVE DISEASE Final Result * PT ED [...] Personal/Family Self 1970 [address] [place] [address] [facility] Care Teams Mechanical Energy Engineer Relationship Specialty Start Date End Date Tyson Fonseca MD PCP - General Family Medicine 11/11/15 Vivian Brady MD [address] [place] [address] Gastroenterology 01/16/25
--- OUTSIDE RECORDS SUMMARY | 2025-05-10 01:46 | XMS_ITS | Encounter Summary ---
Author Organization [employer] tem Address [id number] [address] [place] [address] Care Team Providers Care Technical Sales Support Manager Name Role Phone Cisco Blanc Primary Care Provider Encounter Details Date Type Department Care Team (Late st Contact Info) Description 03/11/2023 Orders Only [facility] - Family Medicine [address] [place] [place] [address] External, Scanning Provider Social History Tobacco Use [...] How often do you attend sikh or anabaptist serv ices? Never 08/01/2022 Active [...] Answer Date Recorded Total Score 0 02/17/2023 [facility] [place] of Occupat ional Health - Occupational Stress [...] Recorded Do you need help finding a [facility] career [facility] and/or a training program? [...] family, [facility] documented as of this [...] documented as of this encounter Care Teams Technical Sales Support Manager Relationship Specialty Start Date End Date Cisco Blanc DO [address] [facility], [place] [address] PCP - General Family Medicine 12/19/19 documented as of this encounter
--- OUTSIDE RECORDS SUMMARY | 2025-05-10 01:46 | XMS_ITS | Encounter Summary ---
Author Organization [employer] tem Address [id number] [address] [place] [address] Care Team Providers Care Oil Burner Servicer And Installer Name Role Phone Cisco Blanc Primary Care Provider Encounter Details Date Type Department Care Team (Late st Contact Info) Description 02/24/2023 Orders Only [facility] - Family Medicine [address] [place] [address] External, Scanning Provider Social History Tobacco Use [...] How often do you attend pentecostal or holiness serv ices? Never 08/01/2022 Active [...] Answer Date Recorded Total Score 0 02/17/2023 [facility] [place] of Occupat ional Health - Occupational Stress [...] Do you need help finding a [facility], [facility] career center and/or a training program? [...] family, patient needs to fllow up with [facility] Dc documented as of this [...] documented as of this encounter Care Teams Oil Burner Servicer And Installer Relationship Specialty Start Date End Date Cisco Blanc DO [address] [facility], [place] [address] PCP - General Family Medicine 12/19/19 documented as of this encounter
--- OUTSIDE RECORDS SUMMARY | 2025-05-10 01:46 | XMS_ITS | Encounter Summary ---
Author Organization [employer] tem Address [id number] [address] [place] [address] Care Team Providers Care Manager Sterile Name Role Phone Cisco Blanc DO Primary Care Provider [phone] Reason for Visit * Reason Comments Med Refill Encounter Details Date Type Department Care Team (Late st Contact Info) Description 08/30/2022 Refill [facility] - Family Medicine [address] [place] [address] Cisco Blanc DO [address], [facility] [address] Social History Tobacco Use Types Packs/Day Years [...] How often do you attend hinduism or tenriism serv ices? Never 08/01/2022 Active Member of [...] Answer Date Recorded Total Score 9 08/01/2022 [facility] of Occupat ional Health - [...] family, patient needs to f[facility]ow up with [facility] documented as of this encounter Visit Diagnoses Not on filedocumented in this encounter Additional Health Concerns Assessment Noted Time PHQ-9 Depression Total Score: 9 08/01/20 22 6:00 PM EST documented as of this encounter Care Teams Manager Sterile Relationship Specialty Start Date End Date Cisco Blanc DO [address], [place] [address] PCP - General Family Medicine 12/19/19 documented as of this encounter
--- OUTSIDE RECORDS SUMMARY | 2025-05-10 01:46 | XMS_ITS | Encounter Summary ---
Author Organization [employer] tem Address [id number] [address] [place] [address] Care Team Providers Care Crankshaft Balancer Name Role Phone Cisco Blanc Primary Care Provider Encounter Details Date Type Department Care Team (Late st Contact Info) Description 09/06/2024 Orders Only [facility] - Family Medicine [address] [place] [address] Ref Prov, [place] [address] Social History Tobacco Use Types Packs/Day Years [...] How often do you attend restorationist or muslim serv ices? Never 08/01/2022 Active Member of [...] 03/15/2024 [facility] Occupational Stress Questionnaire Answer [...] Recorded Do you need help finding a [facility] career center and/or a training program? [...] Modality Body, Abdomen, Body Covera N/A Compu enrst Tomography us Not In System Ref Prov IMG CT ORDERABLES Final R esult documented in this encounter Visit Diagnoses Not on filedocumented in this encounter Additional Health Concerns Assessment Noted Time PHQ-9 Depression Total Score: 21 03/15/ 024 4:01 PM EDT documented as of this encounter Care Teams Crankshaft Balancer Relationship Specialty Start Date End Date Cisco Blanc DO [address], [place] [address] PCP - General Family Medicine 12/19/19 documented as of this encounter
--- OUTSIDE RECORDS SUMMARY | 2025-05-10 01:46 | XMS_ITS | Encounter Summary ---
Author Organization [employer] Address [id number] [address] [place] [address] Care Team Providers Care Machine Adjuster Helper Name Role Phone Cisco Blanc Primary Care Provider [phone] Encounter Details Date Type Department Care Team (Late st Contact Info) Description 03/13/2024 Orders Only [facility] - Family Medicine [address] [place] [address] Ref Prov, [place] [address] Social History Tobacco Use Types Packs/Day Years [...] week 08/01/2022 How often do you attend amish or latter day serv ices? Never 08/01/2022 [...] Answer Date Recorded Total Score 21 03/15/2024 [facility] of Occupat [facility] - Occupational Stress Questionnaire Answer Date Recorded [...] Do you need help finding a [facility] career [facility] and/or a training program? [...] family, patient needs to fllow up with [facility] documented as of this encounter [...] documented as of this encounter Care Teams Machine Adjuster Helper Relationship Specialty Start Date End Date Cisco Blanc DO [address] [facility], [place] [address] PCP - General Family Medicine 12/19/19 documented as of this encounter
--- OUTSIDE RECORDS SUMMARY | 2025-05-10 01:46 | XMS_ITS | Encounter Summary ---
Author Organization [employer] tem Address [id number] [address] [place] [address] Care Team Providers Care Equipment Processer Storage Name Role Phone Cisco Blanc Primary Care Provider Encounter Details Date Type Department Care Team (Late st Contact Info) Description 03/08/2024 [facility]phone [facility] [address] [place] [phone] Linda Marc CMA Social History Tobacco Use [...] How often do you attend mandaeism or episcopal serv ices? Never 08/01/2022 Active [...] Answer Date Recorded Total Score 16 12/09/2023 [facility] [place] of Occupat ional Health - Occupational Stress [...] Recorded Do you need help finding a [employer] al career center and/or a training program? [...] to put a referral in for a Supervisor Forming Department.He states his blood pressure is up and struggles with constipation. 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 He is overdue for a wellness visit [...] patient needs to fllow up with [facility] D[facility] documented as of this encounter Visit Diagnoses Not on filedocumented in this encounter Additional Health Concerns Assessment Noted Time PHQ-9 Depression Total Score: 16 024 8:43 AM EDT documented as of this encounter Care Teams Equipment Processer Storage Relationship Specialty Start Date End Date Cisco Blanc G, DO [address] [facility], [place] [address] PCP - General Family Medicine 12/19/19 documented as of this encounter
--- OUTSIDE RECORDS SUMMARY | 2025-05-10 01:46 | XMS_ITS | Encounter Summary ---
Author Organization [employer] tem Address [id number] [address] [place] [address] Care Team Providers Care Works Manager Name Role Phone Cisco Blanc DO Primary Care Provider [phone] Reason for Visit * Reason Comments Med Refill Encounter Details Date Type Department Care Team (Late st Contact Info) Description 08/17/2022 Refill [facility] - Family Medicine [address] [place] [address] Cisco Blanc DO [address], [facility] [place] [address] Social History Tobacco Use Types Packs/Day Years [...] week 08/01/2022 How often do you attend presybeterian or restorationist serv ices? Never 08/01/2022 Active Member of [...] Answer Date Recorded Total Score 9 08/01/2022 [facility] of Occupat ional Health - [...] documented as of this encounter Care Teams Works Manager Relationship Specialty Start Date End Date Cisco Blanc DO [address], [place] [address] PCP - General Family Medicine 12/19/19 documented as of this encounter
--- OUTSIDE RECORDS SUMMARY | 2025-05-10 01:46 | XMS_ITS | Encounter Summary ---
Author Organization [employer] tem Address [id number] [address] [place] [address] Care Team Providers Care Ice Crusher Name Role Phone Cisco Blanc Primary Care Provider Encounter Details Date Type Department Care Team (Late st Contact Info) Description 11/23/2023 Orders Only [facility] - Family Medicine [address] [place] [address] External, Scanning Provider Social History Tobacco Use [...] How often do you attend baptist or pentecostalism serv ices? Never 08/01/2022 Active [...] Answer Date Recorded Total Score 0 02/17/2023 [facility] [place] of Occupat ional Health - Occupational Stress [...] Recorded Do you need help finding a [facility] career [facility] and/or a training [...] to fllow up with [facility] Dc documented as of this encounter [...] documented as of this encounter Care Teams Ice Crusher Relationship Specialty Start Date End Date Cisco Blanc DO [address], [place] [address] PCP - General Family Medicine 12/19/19 documented as of this encounter
--- OUTSIDE RECORDS SUMMARY | 2025-05-10 01:46 | XMS_ITS | Encounter Summary ---
Author Organization [employer] tem Address [id number] [address] [place] [address] Care Team Providers Care Rehab Spec Name Role Phone Cisco Blanc DO Primary Care Provider [phone] Reason for Visit * Reason Comments Med Refill Encounter Details Date Type Department Care Team (Late st Contact Info) Description 04/10/2024 Refill [facility] - Family Medicine [address] [place] [address] Cisco Blanc DO [address], [facility] [place] [address] Social History Tobacco Use Types Packs/Day Years [...] week 08/01/2022 How often do you attend spiritism or caodaism serv ices? Never 08/01/2022 Active [...] Answer Date Recorded Total Score 21 03/15/2024 [facility] of Occupat ional Health - Occupational [...] Do you need help finding a [facility] career [facility] and/or a training [...] family, patient needs to fllow up with [facility] Dc documented as of this encounter Visit Diagnoses Not on filedocumented in this encounter Additional Health Concerns Assessment Noted Time PHQ-9 Depression Total Score: 21 024 4:01 PM EDT documented as of this encounter Care Teams Rehab Spec Relationship Specialty Start Date End Date Cisco Blanc DO [address] [facility], [facility] [place] [address] PCP - General Family Medicine 12/19/19 documented as of this encounter
--- OUTSIDE RECORDS SUMMARY | 2025-05-10 01:46 | XMS_ITS | Encounter Summary ---
Author Organization [employer] tem Address [id number] [address] [place] [address] Care Team Providers Care Field Research Assistant Name Role Phone Cisco Blanc Primary Care Provider Encounter Details Date Type Department Care Team (Late st Contact Info) Description 02/20/2024 [facility]phone [facility] [address] [place] [address] Linda Marc CMA Social History Tobacco Use [...] week 08/01/2022 How often do you attend pentecostalism or hinduism serv ices? Never 08/01/2022 Active Member of [...] Answer Date Recorded Total Score 16 12/09/2023 [facility] [place] of Occupat ional Health - Occupational Stress [...] Recorded Do you need help finding a [employer] al career center and/or a training program? [...] documented as of this encounter Care Teams Field Research Assistant Relationship Specialty Start Date End Date Cisco Blanc DO [address], [place] [address] PCP - General Family Medicine 12/19/19 documented as of this encounter
--- OUTSIDE RECORDS SUMMARY | 2025-05-10 01:46 | XMS_ITS | Encounter Summary ---
Author Organization [employer] tem Address [id number] [address] [place] [address] Care Team Providers Care Noise Tester Name Role Phone Cisco Blanc Primary Care Provider Encounter Details Date Type Department Care Team (Late st Contact Info) Description 05/08/2025 Orders Only [facility] - Family Medicine [address] [place] [address] Ref Prov, [place] [address] Social History Tobacco Use Types Packs/Day Years Used Date Smoking Tobacco: Former Cigarettes 1 34 1 09/23/1984 - 12/20/2018 Passive Smoke Exposure: Past Smokeless Tobacco: Never Comments:vape, today Alcohol Use Standard Drinks/Week Comments Yes 0 (1 standard drink = 0.6 oz pur e alcohol) Occasional C Utilities Answer Date Recorded In the past 12 months has [facility], gas, oil, or water [employer] threatened to shut off services in your [...] How often do you attend lutheran or confucianism serv ices? Never 08/01/2022 Active [...] PHQ-2 Answer Date Recorded Total Score 12/10/2024 [facility] of Occupat ional Health - Occupational [...] Recorded Do you need help finding a [facility] career center and/or a training [...] to fllow up with [facility] documented as of this encounter Procedures Procedure Name Priority Date/Time Associated Diagnosis Comments XR ABDOMEN AP 1 VW Routine 05/07/2025 9:17 AM EDT documented in this encounter Results [...] documented as of this encounter Care Teams Noise Tester Relationship Specialty Start Date End Date Cisco Blanc DO [address], [place] [address] PCP - General Family Medicine 12/19/19 documented as of this encounter
--- OUTSIDE RECORDS SUMMARY | 2025-05-10 01:46 | XMS_ITS | Encounter Summary ---
Author Organization [employer] tem Address [id number] [address] [place] [address] Care Team Providers Care Exhibit Designer Name Role Phone Cisco Blanc DO Primary Care Provider [phone] Reason for Visit * Reason Comments Med Refill Encounter Details Date Type Department Care Team (Late st Contact Info) Description 01/18/2023 Refill [facility] - Family Medicine [address] [place] [address] Cisco Blanc DO [address], [facility] [place] [address] Social History Tobacco Use Types Packs/Day Years [...] week 08/01/2022 How often do you attend voodoo or methodist serv ices? Never 08/01/2022 Active [...] Answer Date Recorded Total Score 9 08/01/2022 [facility] of Occupat ional Health - [...] family, patient needs to fllow up with [facility] Dc documented as of this encounter Visit Diagnoses Not on filedocumented in this encounter Additional Health Concerns Assessment Noted Time PHQ-9 Depression Total Score: 9 08/01/20 22 6:00 PM EST documented as of this encounter Care Teams Exhibit Designer Relationship Specialty Start Date End Date Cisco Blanc DO [address] [facility], [place] [address] PCP - General Family Medicine 12/19/19 documented as of this encounter
--- OUTSIDE RECORDS SUMMARY | 2025-05-10 01:46 | XMS_ITS | Encounter Summary ---
Author Organization [employer] tem Address [id number] [address] [place] [address] Care Team Providers Care Prom Burn Off Operator Name Role Phone Cisco Blanc DO Primary Care Provider [phone] Reason for Visit * Reason Comments Med Refill Encounter Details Date Type Department Care Team (Late st Contact Info) Description 09/15/2022 Refill [facility] - Family Medicine [address] [place] [address] Cisco Blanc DO [address], [facility] [place] [address] Social History Tobacco Use Types Packs/Day Years [...] How often do you attend orthodox or zoroastrian serv ices? Never 08/01/2022 Active [...] Answer Date Recorded Total Score 9 08/01/2022 [facility] of Occupat ional Health - Occupational [...] documented as of this encounter Care Teams Prom Burn Off Operator Relationship Specialty Start Date End Date Cisco Blanc DO [address] [facility], [place] [address] PCP - General Family Medicine 12/19/19 documented as of this encounter
--- OUTSIDE RECORDS SUMMARY | 2025-05-10 01:46 | XMS_ITS | Encounter Summary ---
Author Organization [employer] tem Address [id number] [address] [place] [address] Care Team Providers Care Interactive Art Director Name Role Phone Cisco Blanc Primary Care Provider Encounter Details Date Type Department Care Team (Late st Contact Info) Description 03/12/2024 Orders Only [facility] - Family Medicine [address] [place] [address] Ref Prov, [place] [address] Social History Tobacco Use Types Packs/Day Years [...] week 08/01/2022 How often do you attend episcopal or yazdanism serv ices? Never 08/01/2022 Active [...] Answer Date Recorded Total Score 21 03/15/2024 [facility] of Occupat [facility] - Occupational Stress Questionnaire Answer Date Recorded [...] Recorded Do you need help finding a [facility] career center and/or a training program? [...] family, patient needs to fllow up with [facility] documented as of this encounter [...] documented as of this encounter Care Teams Interactive Art Director Relationship Specialty Start Date End Date Cisco Blanc DO [address], [place] [address] PCP - General Family Medicine 12/19/19 documented as of this encounter
--- OUTSIDE RECORDS SUMMARY | 2025-05-10 01:46 | XMS_ITS | Encounter Summary ---
Author Organization [employer] Address [id number] [address] [place] [address] Care Team Providers Care Stripping Shovel Operator Name Role Phone Cisco Blanc DO Primary Care Provider + [phone] Reason for Visit * Reason Comments Med Refill Encounter Details Date Type Department Care Team (Late st Contact Info) Description 05/12/2022 Refill [facility] Internal Medicine - Family Medicine [address] [phone] Michelle Francis APRN-CNP [address] [place] [address] Social History Tobacco Use Types Packs/Day Years [...] family, patient needs to fllow up with [facility] upon Dc documented as of this encounter Visit Diagnoses Not on filedocumented in this encounter Care Teams Stripping Shovel Operator Relationship Specialty Start Date End Date Cisco Blanc DO [address], [place] [address] PCP - General Family Medicine 12/19/19 documented as of this encounter
--- OUTSIDE RECORDS SUMMARY | 2025-05-10 01:46 | XMS_ITS | Encounter Summary ---
Author Organization [employer] Address [id number] [address] [place] [address] Care Team Providers Care Clinical Liaison Name Role Phone Cisco Blanc DO Primary Care Provider [phone] Reason for Visit * Reason Comments Med Refill Encounter Details Date Type Department Care Team (Late st Contact Info) Description 05/12/2022 [facility]ill [facility] - Family Medicine [address] [place] [phone] Cisco Blanc DO [address] [facility] [place] [address] Social History Tobacco Use Types Packs/Day Years [...] on filedocumented in this encounter Care Teams Clinical Liaison Relationship Specialty Start Date End Date Cisco Blanc DO [address] [facility] [place] [address] PCP - General Family Medicine 12/19/19 documented as of this encounter
--- OUTSIDE RECORDS SUMMARY | 2025-05-10 01:46 | XMS_ITS | Encounter Summary ---
Author Organization [employer] Address [id number] [address] [place] [address] Care Team Providers Care Limousine Rental Clerk Name Role Phone Cisco Blanc DO Primary Care Provider Encounter Details Date Type Department Care Team (Late st Contact Info) Description 03/09/2024 Orders Only [facility] Internal Medicine - Family Medicine [address] [place] [phone] Cisco Blanc DO [address], [facility] [place] [address] Irritable bowel syndrome with constipation (Primary Dx); [...] How often do you attend tenriism or congregation serv ices? Never 08/01/2022 Active [...] Answer Date Recorded Total Score 16 12/09/2023 [facility] [place] of Occupat ional Health - Occupational Stress [...] Recorded Do you need help finding a [facility] career center and/or a training program? No [...] fllow up with [facility] Dc documented as of this encounter Visit Diagnoses Diagnosis Irritable bowel syndrome with constipation- Primary Irritable bowel syndrome Change in bowel habits Other symptoms involving digestive system documented in this encounter Additional Health Concerns Assessment Noted Time PHQ-9 Depression Total Score: 16 024 8:43 AM EDT documented as of this encounter Care Teams Limousine Rental Clerk Relationship Specialty Start Date End Date Cisco Blanc DO [address] [facility], [facility] [place] [address] PCP - General Family Medicine 12/19/19 documented as of this encounter
--- OUTSIDE RECORDS SUMMARY | 2025-05-10 01:46 | XMS_ITS | Encounter Summary ---
Author Organization [employer] Address [id number] [address] [place] [address] Care Team Providers Care Scissors Grinder Name Role Phone Cisco Blanc Primary Care Provider Encounter Details Date Type Department Care Team (Late st Contact Info) Description 02/25/2023 Orders Only [facility] Internal Medicine - Family Medicine [address] [place] [phone] External, Scanning Provider Social History Tobacco Use [...] How often do you attend scientologist or jainism serv ices? Never 08/01/2022 Active [...] Answer Date Recorded Total Score 0 02/17/2023 [facility] [place] of Occupat ional Health - Occupational Stress [...] Do you need help finding a [facility] and/or a training [...] family, patient needs to fllow up with [facility] Dc documented as of this [...] documented as of this encounter Care Teams Scissors Grinder Relationship Specialty Start Date End Date Cisco Blanc DO [address] [place] [address] PCP - General Family Medicine 12/19/19 documented as of this encounter
--- OUTSIDE RECORDS SUMMARY | 2025-05-10 01:46 | XMS_ITS | Encounter Summary ---
Author Organization [employer] Address [id number] [address] [place] [address] Care Team Providers Care Home Care Provider Name Role Phone Cisco Blanc Primary Care Provider Encounter Details Date Type Department Care Team (Late st Contact Info) Description 06/01/2024 Orders Only [facility] Internal Medicine - Family Medicine [address] [place] [address] Ref Prov, [place] [address] Social History Tobacco Use Types Packs/Day Years [...] How often do you attend hindu or rastafari serv ices? Never 08/01/2022 Active [...] Answer Date Recorded Total Score 21 03/15/2024 [facility] Questionnaire Answer Date [...] you need help finding a [facility] and/or a training [...] of this encounter Care Teams Home Care Provider Relationship Specialty Start Date End Date Cisco Blanc DO [address] [facility], [place] [address] PCP - General Family Medicine 12/19/19 documented as of this encounter
--- OUTSIDE RECORDS SUMMARY | 2025-05-10 01:46 | XMS_ITS | CCD ---
Author Organization [facility] Care Team Providers Care Pattern Maker Programer Name Role Phone OSINOWO, OSIYEMI Unavailable Unavailable OSINOWO, OSIYEMI Unavailable Unavailable NADERER, TYSON Unavailable Unavailable NADERER, TYSON Unavailable Unavailable Mary King Unavailable Tawnya Andre Unavailable CHAD, DR CISCO Thomason Primary Care Unavailable MARKER, DR JUARES Admitting Unavailable MARKER, DR JUARES Attending Unavailable MARKER, DR JUARES Consulting Unavailable ALANA MORROW Consulting Unavailable DO Cisco Bonilla Primary Care Provider MD Jennyfer Winkler Emergency Provider [phone] CISCO BONILLA Primary Care Physician [phone] JAME De Emergency Provider JENNYFER AUGUSTIN Admitting Unavailable JENNYFER AUGUSTIN Attending Unavailable CISCO BONILLA Primary Care Unavailable JENNYFER AUGUSTIN Attending Unavailable JENNYFER AUGUSTIN Referring Unavailable CISCO BONILLA Primary Care Unavailable CHAD, CISCO Thomason Primary Care Unavailable JEY NORRIS Attending Unavailable Carlos Albertolong Cisco MCLAUGHLIN Primary Care Provider [phone] Cisco Bonilla DO Primary Care Provider CISCO [...] Unavailable Tyson Tolliver MD Primary Care Provider [phone] Vivian Brady MD Unavailable Furlokiley Cisco MCLAUGHLIN Primary Care Provider Shiv [...] Referring Unavailable LYDIA DRAKE Attending Unavailable TYSON TOLLIEVR Primary Care Unavailable LYDIA DRAKE Attending Unavailable TYSON TOLLIVER Primary Care Unavailable Vivian Brady Attending Unavailable Vivian Brady Attending Unavailable Vivian Brady Attending Unavailable Didi Allen Attending Unavailable Vivian Brady Attending Unavailable Allergies Allergy Classification Reported Allergen(s) Allergy Type Date of Onset Reaction(s) Facility (1 source) No Known Medication Allergies; Translations: [No Known Medication Allergies] Propensity to adverse reactions (disorder) [facility] Repository Medications Current Medications Medication [...] constipation, # 10 supp, Refills(s) 0, Pharmacy: [facility], 173, cm, 01/24/25 10:35:00 EDT, Height/Length [...] Daily, # 30 tab(s), Refills(s) 4, Pharmacy: [facility], 173, cm, 01/24/25 10:35:00 EDT, Height/Length Dosing, 86.3, kg, 01/24/25 10:35:00 EDT, Weight Dosing Start Date: 01/24/25 Status: Ordered Quantity: 30.0 Unit: tab(s) Repeat number: 5 Indications: Other specified disorders of muscle; Outlet dysfunction constipation; Constipation, unspecified; Psychological and behavioral factors associated with disorders or diseases classified elsewhere; Other psychoactive substance dependence, uncomplicated; Abdominal distension (gaseous); polyethylene glycol 3350 91823 mg powder for oral solution (20 sources) [...] bedtime) for constipation, 100 tab(s), Refill(s) 0, [facility], 173, cm, 01/24/25 10:35:00 EDT, Height/Length Dosing, 86.3, kg, 01/24/25 10:35:00 EDT, Weight Dosing Start Date: 04/19/25 Status: Ordered Quantity: 100.0 Unit: tab(s) Repeat number: 1 Start: 01-09-2025 Senna 8.6 mg o ral tablet 17.2 mg, 2 tab(s), Oral, Once a day (at bedtime) for constipation, 100 tab(s), Refill(s) 3, [facility], 173, cm, 01/09/25 12:52:00 EDT, [...] 2025 March 19, 2025 11:33am peg 3350-sod sulf,bibc-nrx-ugz 178.7-7.3-0.5 gram recon soln (1 source) Start: 02-13-2024 End: 02-14-2024 peg 3350-sod sulf,dvag-qvp-otp 178.7-7.3-0.5 gram recon soln Indications: Change in [...] RT 2Von 03-20-2025 XR foot RT 2V [facility] [place] [address] XRay Report Signed Patient: Chai Arnold MR#: [id number] 2 : 1970 Acct:[id number] Age/Sex: 54 / M ADM Date: 03/19/25 Loc: [place] Room: Type: [facility] – [...] Lisa M.D. 03/20/2025 8:49 AM Dictation Location: [place] [address] Transcribed By: [facility] 03/20/25 0849 Dictated By: Dante Lisa II, MD 03/20/25 0849 Signed By: 03/20/25 0849 Normal [facility] Amphetamine Screen Ql (U)Ord ered By: Nirmal Bruno on 03-19-2025 Amphetamines Ql (U) Negative Negative [facility] Barbiturates [Presence] in U rine by Screen methodOrdered By: Nirmal Bruno on 03-19-2025 Barbiturates Screen Ql (U) Negative Negative [facility] Benzodiazepines Screen Ql (U )Ordered By: Nirmal Bruno on 03-19-2025 Benzodiazepines Ql (U) Positive High Negative [facility] Benzoylecgonine [Presence] i n Urine by Screen methodOrdered By: Nirmal Bruno on 03-19-2025 Benzoylecgonine Screen Ql (U) Negative Negative [facility] Cannabinoids [Presence] in U rine by Screen methodOrdered By: Nirmal Bruno on 03-19-2025 Cannabinoids Screen Ql (U) Negative Negative [facility] Comment on above: These are unconfirme d results and should not be used for legal purposes. Drug Cut-Off Concentration: AMPH 1000 ng/mL MAXIMILIAN 200 ng/mL NORA 200 ng/mL COCM 300 ng/mL OP 300 ng/mL PCP 25 ng/mL THC 20 ng/mL Drug Screen,Urineon 03-19-20 Amphetamine Screen,Urine Negative Normal Negative [facility] Comment on above: Performed By: #### U RDS #### [address] Barbiturate Screen,Urine Negative Normal Negative [facility] Comment on above: Performed By: #### U RDS #### [place] [address] [place] Benzodiazepines Screen,Urine Positive Normal Negative [facility] Comment on above: Performed By: #### U RDS #### [place] [address] [place] Cannabinoid Screen,Urine Negative Normal Negative [facility] Comment on above: Result Comment: Thes e are unconfirmed results and should not be used for legal purposes. Drug Cut-Off Concentration: AMPH 1000 ng/mL MAXIMILIAN 200 ng/mL NORA 200 ng/mL COCM 300 ng/mL OP 300 ng/mL PCP 25 ng/mL THC 20 ng/mL PERFORMED BY: [place] [address] PATHOLOGIST BENCH MECHANIC BROWN OLIVIER M.D. Performed By: #### U RDS #### [address] [place] [address] [place] Cocaine Screen,Urine Negative Normal Negative [facility] Comment on above: Performed By: #### U RDS #### [facility] [address] Opiate Screen,Urine Positive Normal Negative [facility] Comment on above: Performed By: #### U RDS #### [facility] [address] Phencyclidine Screen,Urine Negative Normal Negative [facility] Comment on above: Performed By: #### U RDS #### [facility] [address] Opiates [Presence] in Urine by Screen methodOrdered By: Nirmal Bruno on 03-19-2025 Opiates Screen Ql (U) Positive High Negative [facility] Phencyclidine Screen Ql (U)O rdered By: Nirmal Bruno on 03-19-2025 Phencyclidine Ql (U) Negative Negative [facility] Alanine aminotransferase [En zymatic activity/volume] in Serum or PlasmaOrdered By: Ehsan Avina on 03-18-2025 ALT [Catalytic activity/Vol] 15 U/L 7-52 [facility] Comment on above: Performed By: #### C MP wRFX A1C, CBC #### [facility] [address] Albumin [Mass/volume] in Ser um or Plasma by Bromocresol green (BCG) dye binding methoOrdered By: Ehsan Avina on 03-18-2025 Albumin BCG dye [Mass/Vol] 4.2 g/dL 3.5-5.7 [facility] Alkaline phosphatase [Enzyma tic activity/volume] in Serum or PlasmaOrdered By: Ehsan Avina on 03-18-2025 ALP [Catalytic activity/Vol] 116 U/L High 34-104 [facility] Comment on above: Result Comment: PERF ORMED BY: [place] [address] PATHOLOGIST BENCH MECHANIC BROWN OLIVIER M.D. Performed By: #### C MP wRFX A1C, CBC #### [facility] [address] Aspartate aminotransferase [ Enzymatic activity/volume] in Serum or PlasmaOrdered By: Ehsan Avina on 03-18-2025 AST [Catalytic activity/Vol] 20 U/L 13-39 [facility] Comment on above: Performed By: #### C MP wRFX A1C, CBC #### [address] Basophils [#/volume] in Bloo d by Automated countOrdered By: Ehsan Avina on 03-18-2025 Basophils (Bld) [#/Vol] 0.1 10*3/uL 0.0-0.2 [facility] Comment on above: Result Comment: PERF ORMED BY: [place] [address] PATHOLOGIST BENCH MECHANIC BROWN OLIVIER M.D. Performed By: #### C MP wRFX A1C, CBC #### [address] Basophils/100 leukocytes in Blood by Automated countOrdered By: Ehsan Avian on 03-18-2025 Basophils/100 WBC (Bld) 0.9 % . [facility] Comment on above: Performed By: #### C MP wRFX A1C, CBC #### [address] Bilirubin.total [Mass/volume ] in Serum or PlasmaOrdered By: Ehsan Avina on 03-18-2025 Bilirubin [Mass/Vol] 1.0 mg/dL 0.3-1.0 [facility] Comment on above: Performed By: #### C MP wRFX A1C, CBC #### [facility] [address] [place] [address] CMP with reflex to A1Con Albumin [Mass/Vol] 4.2 g/dL Normal 3.5-5.7 [facility] Comment on above: Performed By: #### C MP wRFX A1C, CBC #### [place] [address] [place] GFR/1.73 sq M.predicted MDRD (S/P/Bld) [Vol rate/Area] mL/min/{1.73_m2} Normal [facility] Comment on above: Performed By: #### C MP wRFX A1C, CBC #### [address] Calcium [Mass/volume] in Ser um or PlasmaOrdered By: Ehsan Avina on 03-18-2025 Calcium [Mass/Vol] 9.2 mg/dL 8.6-10.3 [facility] Comment on above: Performed By: #### C MP wRFX A1C, CBC #### [address] Carbon dioxide, total [Moles /volume] in Serum or PlasmaOrdered By: Ehsan Avina on 03-18-2025 CO2 [Moles/Vol] 29.7 mmol/L 21.0-31.0 [facility] Comment on above: Performed By: #### C MP wRFX A1C, CBC #### [address] Chloride [Moles/volume] in S dereje or PlasmaOrdered By: Ehsan Avina on 03-18-2025 Chloride [Moles/Vol] 102 mmol/L 98-107 [facility] Comment on above: Performed By: #### C MP wRFX A1C, CBC #### [address] Complete Blood Count Auto Di ffon 03-18-2025 Mean Corpuscular HGB Conc 34.4 g/dL Normal 32.5-35.6 [facility] Comment on above: Performed By: #### C MP wRFX A1C, CBC #### [place] [address] [place] NRBC% 0.1 /100{WBC} Normal 0-0.5 [facility] Comment on above: Performed By: #### C MP wRFX A1C, CBC #### [address] White Blood Count 6.4 [CFU]/mL Normal 4.1-10.5 [facility] Comment on above: Performed By: #### C MP wRFX A1C, CBC #### [facility] [address] Creatinine [Mass/volume] in Serum or PlasmaOrdered By: Ehsan Avina on 03-18-2025 Creatinine [Mass/Vol] 1.03 mg/dL 0.70-1.30 [facility] Comment on above: Performed By: #### C MP wRFX A1C, CBC #### [facility] [address] ECG 12 lead ECGon 03-18-2025 ECG 12 lead ECG [facility] [address] [place] [address] Electrocardiograph Report Signed Patient: Chai Arnold MR#: [id number] 2 : 1970 Acct:[id number] Age/Sex: 54 / M ADM Date: 03/18/25 Loc: Room: Type: [facility] Attending Dr: Ehsan Avina DO Ordering [...] previous ECGs available Confirmed by Eduardo Torrez ([id number]) on 03/18/2025 1:40:16 PM Referred By: Electronically Signed By: Eduardo Torrez Transcribed By: MUS Signed By Eduardo Torrez MD 03/18/25 1340 Normal [facility] Eosinophils [#/volume] in Bl ood by Automated countOrdered By: Ehsan Avina on 03-18-2025 Eosinophils (Bld) [#/Vol] 0.9 10*3/uL High 0.0-0.45 [facility] Comment on above: Performed By: #### C MP wRFX A1C, CBC #### [facility] [address] [place] [address] [place] Eosinophils/100 leukocytes i n Blood by Automated countOrdered By: Ehsan Avina on 03-18-2025 Eosinophils/100 WBC (Bld) 14.4 % . [facility] Comment on above: Performed By: #### C MP wRFX A1C, CBC #### [place] [address] [place] Erythrocyte distribution wid th [Ratio] by Automated countOrdered By: Ehsan Avina on 03-18-2025 Erythrocyte distribution width (RBC) [Ratio] 12.9 % 12.0-14.8 [facility] Comment on above: Performed By: #### C MP wRFX A1C, CBC #### [place] [address] [place] Erythrocytes [#/volume] in B lood by Automated countOrdered By: Ehsan Avina on 03-18-2025 RBC (Bld) [#/Vol] 4.85 10*6/uL 3.90-5.[address] [facility] Comment on above: Performed By: #### C MP wRFX A1C, CBC #### [facility] [address] [place] [address] [place] Glucose [Mass/volume] in Ser um or PlasmaOrdered By: Ehsan Avina on 03-18-2025 Glucose [Mass/Vol] 88 mg/dL 70-100 [facility] Comment on above: Performed By: #### C MP wRFX A1C, CBC #### [place] [address] [place] Hematocrit [Volume Fraction] of Blood by Automated countOrdered By: Ehsan Avina on 03-18-2025 Hematocrit (Bld) [Volume fraction] 46.4 % 38.8-50.0 [facility] Comment on above: Performed By: #### C MP wRFX A1C, CBC #### [place] [address] [place] Hemoglobin [Mass/volume] in BloodOrdered By: Ehsan Avina on 03-18-2025 Hemoglobin (Bld) [Mass/Vol] 16.0 g/dL 13.0-17.0 [facility] Comment on above: Performed By: #### C MP wRFX A1C, CBC #### [address] Leukocytes [#/volume] correc ernst for nucleated erythrocytes in Blood by Automated counOrdered By: Ehsan Avina on 03-18-2025 WBC corrected for nucl RBC Auto (Bld) [#/Vol] 6.4 10*3/uL 4.1-10.5 [facility] Leukocytes [#/volume] in Blo od by Automated countOrdered By: Ehsan Avina on 03-18-2025 WBC (Bld) [#/Vol] 6.4 10*3/uL 4.1-10.5 [facility] Comment on above: Performed By: #### C MP wRFX A1C, CBC #### [facility] [address] [place] [address] [place] Lymphocytes [#/volume] in Bl ood by Automated countOrdered By: Ehsan Avina on 03-18-2025 Lymphocytes (Bld) [#/Vol] 1.2 10*3/uL 1.00-4.8 [facility] Comment on above: Performed By: #### C MP wRFX A1C, CBC #### [place] [address] [place] Lymphocytes/100 leukocytes i n Blood by Automated countOrdered By: Ehsan Avina on 03-18-2025 Lymphocytes/100 WBC (Bld) 18.9 % . [facility] Comment on above: Performed By: #### C MP wRFX A1C, CBC #### [facility] [address] [place] [address] [place] MCH [Entitic mass] by Automa ernst countOrdered By: Ehsan Avina on 03-18-2025 MCH (RBC) [Entitic mass] 32.9 pg 27.5-35.2 [facility] Comment on above: Performed By: #### C MP wRFX A1C, CBC #### [address] [address] [place] MCHC Auto (RBC) [Mass/Vol]Or dered By: Ehsan vAina on 03-18-2025 MCHC (RBC) [Mass/Vol] 34.4 g/dL 32.5-35.6 [facility] MCV [Entitic volume] by Auto mated countOrdered By: Ehsan Avina on 03-18-2025 MCV (RBC) [Entitic vol] 95.7 fL 83.5-101 F [facility] Comment on above: Performed By: #### C MP wRFX A1C, CBC #### [facility] [address] [place] [address] [place] Monocytes [#/volume] in Bloo d by Automated countOrdered By: Ehsan Avina on 03-18-2025 Monocytes (Bld) [#/Vol] 0.6 10*3/uL 0.0-0.8 [facility] Comment on above: Performed By: #### C MP wRFX A1C, CBC #### [facility] [address] [place] [address] [place] Monocytes/100 leukocytes in Blood by Automated countOrdered By: Ehsan Avina on 03-18-2025 Monocytes/100 WBC (Bld) 9.7 % . [facility] Comment on above: Performed By: #### C MP wRFX A1C, CBC #### [facility] [address] [place] [address] [place] Neutrophils [#/volume] in Bl ood by Automated countOrdered By: Ehsan Avina on 03-18-2025 Neutrophils (Bld) [#/Vol] 3.6 10*3/uL 1.8-7.7 [facility] Comment on above: Performed By: #### C MP wRFX A1C, CBC #### [facility] [address] [place] [address] [place] Neutrophils/100 leukocytes i n Blood by Automated countOrdered By: Ehsan Avina on 03-18-2025 Neutrophils/100 WBC (Bld) 56.1 % . [facility] Comment on above: Performed By: #### C MP wRFX A1C, CBC #### [address] [place] [address] [place] No Panel InformationOrdered By: Ehsan Avina on 03-18-2025 Estimated GFR (CKD-EPI) > 60.0 mL/Min [facility] Creatinine Clearance (Chem N/A [facility] Nucleated erythrocytes [Pres ence] in Blood by Automated countOrdered By: Ehsan Avina on 03-18-2025 Nucleated RBC Auto Ql (Bld) 0.1 /100{WBC} 0-0.5 [facility] Platelet mean volume [Entiti c volume] in Blood by Automated countOrdered By: Ehsan Avina on 03-18-2025 Platelet mean volume (Bld) [Entitic vol] 8.1 fL 6.6-10.1 [facility] Comment on above: Performed By: #### C MP wRFX A1C, CBC #### [address] Platelets [#/volume] in Bloo d by Automated countOrdered By: Ehsan Avina on 03-18-2025 Platelets (Bld) [#/Vol] 213 10*3/uL 150-450 [facility] Comment on above: Performed By: #### C MP wRFX A1C, CBC #### [address] Potassium [Moles/volume] in Serum or PlasmaOrdered By: Ehsan Avina on 03-18-2025 Potassium [Moles/Vol] 4.1 mmol/L 3.5-5.1 [facility] Comment on above: Performed By: #### C MP wRFX A1C, CBC #### [place] [address] [place] Protein [Mass/volume] in Ser um or PlasmaOrdered By: Ehsan Avina on 03-18-2025 Protein [Mass/Vol] 6.9 g/dL 6.4-8.9 [facility] Comment on above: Performed By: #### C MP wRFX A1C, CBC #### [address] Serum globulin measurement b y calculation (mass/volume)Ordered By: Ehsan Avina on 03-18-2025 Globulin (S) [Mass/Vol] 2.7 g/dL [facility] Comment on above: Performed By: #### C MP wRFX A1C, CBC #### [facility] [address] Serum or plasma albumin/glob ulin mass ratioOrdered By: Ehsan Avina on 03-18-2025 Albumin/Globulin [Mass ratio] 1.6 {ratio} [facility] Comment on above: Performed By: #### C MP wRFX A1C, CBC #### [facility] [address] Serum or plasma anion gap de terminationOrdered By: Ehsan Avina on 03-18-2025 Anion gap [Moles/Vol] 9.4 mmol/L 6.0-15.0 [facility] Comment on above: Performed By: #### C MP wRFX A1C, CBC #### [facility] [address] Sodium [Moles/volume] in Ser um or PlasmaOrdered By: Ehsan Avina on 03-18-2025 Sodium [Moles/Vol] 137 mmol/L 136-145 [facility] Comment on above: Performed By: #### C MP wRFX A1C, CBC #### [facility] [address] Urea nitrogen [Mass/volume] in Serum or PlasmaOrdered By: Ehsan Avina on 03-18-2025 Urea nitrogen [Mass/Vol] 9 mg/dL 7-25 [facility] Comment on above: Performed By: #### C MP wRFX A1C, CBC #### [facility] [address] X-ray reportOrdered By: Rodney Dawson on 03-13-2025 Study report [facility] [address] [place] [address] XRay Report Signed Patient: Chai Arnold MR#: [id number] : 1970 Acct:[id number] Age/Sex: 54 / M ADM Date: 5 Loc: [facility] Room: Type: REG CLI Attending Dr: Ehsan [...] Dawson M.D. 03/13/2025 10:25 PM Dictation Location: [place] [address] Transcribed By: [facility] 03/13/252224 Dictated By: Garrett Dawson DO 03/13/252220 Signed By: 03/13/252224 [facility] XR foot RT min 3V*on 025 XR foot RT min 3V* [facility] [address] [place] [address] XRay Report Signed Patient: Chai Arnold MR#: [id number] 2 : 1970 Acct:[id number] Age/Sex: 54 / M ADM Date: 03/13/25 Loc: [facility] Room: Type: REG CLI Attending Dr: Ehsan [...] 10:25 PM Dictation Location: RADIO-PC-20 Transcribed By: [facility] 03/13/252224 Dictated By: Garrett Dawson DO 03/13/252220 Signed By: 03/13/252224 Normal [facility] 03-07-2025 CNPN Telephone ([facility]) ---- CHAI ARNOLD ([id number]) 1970 M Date Time Provider Department 03/07/25 LYDIA DRAKE During your visit today, we recorded the following information about you: Sterling Gonzalez 03/07/2025 1:33 PM Signed Chai Arnold - [phone] Patient contacted the office regarding the baclofen [...] Status:Closed by STERLING GONZALEZ on 03/07/25 Normal [facility] ANORECTAL MANOMET Maryanne 02-28-2025 PATIENT NAME: Chai Arnold PATIENT IDENTITY VERIFICATION COMPLETED USING TWO (2) IDENTIFIERS: Name and Date of confirmed by patient verbally. Referred by: Violette Erasto INFORMATION CONSULTANT.CONSTRUCTION TECHNICIAN Reason for testing: constipation Ileoanal pouch: No SENSITIVE EXAMINATION CONSENT: The sensitive examination was discussed with the Patient or Patient's Authorized Manager Therapy. As applicable, any other physician, advance practice provider, medical student, or other health professional student that will be observing or involved in the sensitive examination for educational or training purposes was discussed with the Patient or Authorized Manager Therapy. The Patient or Authorized Manager Therapy has agreed to proceed with the sensitive examination. [employer] Sales offered:Patient accepts, visit chaperoned by Antonieta PAYNE,RN [...] MD Colon & Rectal Surgery [facility] [place] ANORECTAL MANOMET RYOrdered By: Aparna Guerra on 02-28-2025 [facility] Work Phone: Radiology Study observation (narrative) [facility] Work Phone: CNNURSEon 02-28-2025 CNNURSE Nurse Visit (KENIA) ---- CHAI ARNOLD ([id number]) 1970 M Date Time Provider Department 02/28/25 12:30 PM SAHIL BERGERON During your visit today, we recorded the following information about you: Referring Provider: VIOLETTE MAURER [[id number]] Allergies As of Date: 02/28/2025 (No Known Allergies) Date Reviewed: 02/28/2025 Reviewed by: Macey Meek OCCA - Fully Assessed Reason for Visit: Manometry [780] Visit Diagnosis:Pelvic floor dysfunction [M62.89] Order(s):[facility] ANORECTAL MANOMETRY [[id number]] Order #: [id number] Prescriptions as of 02/28/2025 - ALPRAZolam (XANAX) [...] Encounter Status:Closed by SAHIL BERGERON on 02/28/25 [facility] CNOVon 02-28-2025 CNOV Office Visit (KENIA) ---- CHAI ARNOLD ([id number]) 1970 M Date Time Provider Department 02/28/25 [...] a compounded preparation from a pharmacy in [place], and previously used hydrocortisone. He has not [...] retroflexed positi (more content not included)... Normal [facility] HISTORY PHYSICALon HISTORY PHYSICAL HNO ID: [id number] Author: LYDIA DRAKE PA-C Service: ? 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 He has not [...] No pa (more content not included)... Normal [facility] CNPAraceli [facility]20[facility] ---- CHAI ARNOLD ([id number]) 1970 M Date Time Provider Department 02/11/25 ASHLEY HAYWARD [facility] During your visit today, we [...] Encounter Status:Closed by CHELLE CHRISTIANSON on 02/11/25 [facility] Ambulatory Visit Summaryon 0 6-05-2025 Ambulatory Visit [...] EDT With: Vivian Brady MD Where: [facility] [address] [place], [place] [id number]- Medications What How Much When Why Instructions New plecanatide (Trulance 3 mg oral tablet) 1 Tablets By Mouth Every day Constipation Constipation by outlet dysfunction Pelvic floor dysfunction Bloating Stress-related physiological response affecting medical condition Drug dependence Refills: 4 Pickup at [facility] Unchanged amlodipine (amLODIPine 5 mg Tab) [...] physician if questions or concerns Pharmacy Information [facility]: [address] [place] [place] [id number] [phone] Allergies No Known Medication Allergies Problems Ongoing [...] for choosing us for your care. Normal [place] [facility]Clin ic Noteon 01-24-2025 [...] him. Will refer to GI psychology at [facility] Advised to use squatty potty and [...] days could not see a provider at [facility] Review of Systems PHQ Score Initial [...] Daily, # 30 tab(s), Refills(s) 4, Pharmacy: [facility], 173, cm, 01/24/25 10:35:00 EDT, Height/Length Dosing, 86.3, kg, 01/24/25 10:35:00 EDT, Weight Dosing 2. Constipation by outlet dysfunction (K59.02: Outlet dysfunction constipation) Ordered: plecanatide, 3 mg = 1 tab(s), Oral, Daily, # 30 tab(s), Refills(s) 4, Pharmacy: [facility], 173, cm, 01/24/25 10:35:00 EDT, Height/Length Dosing, 86.3, kg, 01/24/25 10:35:00 EDT, Weight Dosing 3. Pelvic floor dysfunction (M62.89: Other specified disorders of muscle) Ordered: plecanatide, 3 mg = 1 tab(s), Oral, Daily, # 30 tab(s), Refills(s) 4, Pharmacy: [facility], 173, cm, 01/24/25 10:35:00 EDT, Height/Length Dosing, 86.3, kg, 01/24/25 10:35:00 EDT, Weight Dosing 4. Bloating (R14.0: Abdominal distension (gaseous)) Ordered: plecanatide, 3 mg = 1 tab(s), Oral, Daily, # 30 tab(s), Refills(s) 4, Pharmacy: [facility], 173, cm, 01/24/25 10:35:00 EDT, Height/Length Dosing, 86.3, kg, 01/24/25 10:35:00 EDT, Weight Dosing 5. Stress-related physiological response affecting medical condition (F54: Psychological and behavioral factors associated with disorders or diseases classified elsewhere) Ordered: (more content not included)... Normal [facility] Comment on above: Result [...] Someone Will Contact You Regarding These Appointments [facility] External Ambulatory Referral, Gastroenterology, 01/09/25 13:16:00 EDT, [...] choosing us for your care. Petr Sandhu [facility] Gastroenterology Office/Clin ic Noteon 01-09-2025 Gastroenterology [...] him. Will refer to GI psychology at [facility] Advised to use squatty potty and [...] 11/18/2020 Recorded (more content not included)... Normal [facility] Comment on above: Result Comment: Elec tronically Signed By: Caitlyn CHAVIS, Vivian Lance\.br\Date and Time Signed: 01/09/25 13:17 EDT COMPLETE BLOOD COUNTon 12-10 Erythrocyte distribution width (RBC) [Ratio] 13.5 % Normal 11.5-15.0 [facility] Comment on above: Performed By: #### C KARLEY, CMP, 2498-4, 41921-9, 2857-1, TSHR #### [facility] ([id number]) [address] [address] Hematocrit (Bld) [Volume fraction] 48.2 % Normal 39-49 [facility] Comment on above: Performed By: #### C BC, CMP, 2498-4, 88625-5, 2857-1, TSHR #### [facility] ([id number]) [address], [facility] [address] [place] [address] Hemoglobin (Bld) [Mass/Vol] 16.1 g/dL Normal 13.0-17.0 [facility] Comment on above: Performed By: #### C BC, CMP, 2498-4, 78684-0, 2857-1, TSHR #### [facility] ([id number]) [address], [address] [place] [address] MCH (RBC) [Entitic mass] 31.9 pg Normal 27-34 [facility] Comment on above: Performed By: #### C BC, CMP, 2498-4, 79961-4, 2857-1, TSHR #### [facility] ([id number]) [address], [facility] [address] [place] [address] MCHC (RBC) [Mass/Vol] 33.4 g/dL Normal 32-36 [facility] Comment on above: Performed By: #### C BC, CMP, 2498-4, 52391-4, 2857-1, TSHR #### [facility] ([id number]) [address], [address] [address] MCV (RBC) [Entitic vol] 96 fL Normal 80-100 [facility] Comment on above: Performed By: #### Remberto BC, CMP, 2498-4, 82819-9, 2857-1, TSHR #### [facility] ([id number]) [address], [facility] [address] [place] [address] Platelet mean volume (Bld) [Entitic vol] 9.6 fL Normal 7-12 [facility] Comment on above: Performed By: #### Remberto BC, CMP, 2498-4, 33559-0, 2857-1, TSHR #### [facility] ([id number]) [address], [address] [address] Platelets (Bld) [#/Vol] 184 10*3/uL Normal 150-450 [facility] Comment on above: Performed By: #### C BC, CMP, 2498-4, 45781-8, 2857-1, TSHR #### [facility] ([id number]) [address], [address] [place] [address] RBC COUNT 5.04 X10E12/L Normal 4.10-5.70 [facility] Comment on above: Performed By: #### C BC, CMP, 2498-4, 37305-3, 2857-1, TSHR #### [facility] ([id number]) [address], [address] [place] [address] WBC (Bld) [#/Vol] 5.2 10*3/uL Normal 4.0-11.0 [facility] Comment on above: Performed By: #### C BC, CMP, 2498-4, 13649-2, 2857-1, TSHR #### [facility] ([id number]) [address], [address] [place] [address] COMPREHENSIVE METABOLIC PANE Vern 12-10-2024 Albumin [Mass/Vol] 4.5 g/dL Normal 3.2-5.3 [facility] Comment on above: Performed By: #### C BC, CMP, 2498-4, 86547-0, 2857-1, TSHR #### [facility] ([id number]) [address], [address] [place] [address] ALP [Catalytic activity/Vol] 101 U/L Normal 39-130 [facility] Comment on above: Performed By: #### C BC, CMP, 2498-4, 62647-4, 2857-1, TSHR #### [facility] ([id number]) [address], [address] [place] [address] ALT [Catalytic activity/Vol] 38 U/L Normal 0-40 [facility] Comment on above: Performed By: #### C BC, CMP, 2498-4, 19451-0, 2857-1, TSHR #### [facility] ([id number]) [address], [address] [place] [address] Anion gap [Moles/Vol] 11 mmol/L Normal 5-15 [facility] Comment on above: Performed By: #### C BC, CMP, 2498-4, 34513-0, 2857-1, TSHR #### [facility] ([id number]) [address], [address] [place] [address] AST [Catalytic activity/Vol] 28 U/L Normal 0-41 [facility] Comment on above: Performed By: #### C BC, CMP, 2498-4, 24886-8, 2857-1, TSHR #### [facility] ([id number]) [address], [address] [place] [address] Bilirubin [Mass/Vol] 0.6 mg/dL Normal 0.3-1.2 [facility] Comment on above: Performed By: #### C BC, CMP, 2498-4, 90121-8, 2857-1, TSHR #### [facility] ([id number]) [address], [address] [place] [address] Calcium [Mass/Vol] 9.6 mg/dL Normal 8.5-10.5 [facility] Comment on above: Performed By: #### C BC, CMP, 2498-4, 94707-2, 2857-1, TSHR #### [facility] ([id number]) [address], [address] [place] [address] Chloride [Moles/Vol] 105 mmol/L Normal 98-109 [facility] Comment on above: Performed By: #### Remberto BC, CMP, 2498-4, 71324-7, 2857-1, TSHR #### [facility] ([id number]) [address], [address] [place] [address] CO2 [Moles/Vol] 26 mmol/L Normal 22-32 [facility] Comment on above: Performed By: #### C BC, CMP, 2498-4, 59380-8, 2857-1, TSHR #### [facility] ([id number]) [address], [address] [place] [address] Creatinine [Mass/Vol] 0.94 mg/dL Normal 0.60-1.30 [facility] Comment on above: Result Comment: METH OD TRACEABLE TO IDMS STANDARD Performed By: #### C KARLEY, CMP, 2498-4, 79913-5, 2857-1, TSHR #### [facility] ([id number]) [address], [address] [place] [address] eGFR (CKD-EPI) NON-RACE DEPENDENT >90 Normal >59 [facility] Comment on above: Result Comment: Reported eGFR is based on the CKD-EPI 2020 equation that does not use a race coefficient. Performed By: #### C KARLEY, CMP, 2498-4, 30218-3, 2857-1, TSHR #### [facility] ([id number]) [address], [address] [place] [address] Glucose [Mass/Vol] 86 mg/dL Normal 65-99 [facility] Comment on above: Performed By: #### Remberto CRANDALL, CMP, 2498-4, 36301-7, 2857-1, TSHR #### [facility] ([id number]) [address], [address] [place] [address] Potassium [Moles/Vol] 4.2 mmol/L Normal 3.5-5.0 [facility] Comment on above: Performed By: #### Remberto CRANDALL, CMP, 2498-4, 12866-0, 2857-1, TSHR #### [facility] ([id number]) [address], [address] [place] [address] Protein [Mass/Vol] 7.4 g/dL Normal 6.0-8.0 [facility] Comment on above: Performed By: #### C BC, CMP, 2498-4, 35890-9, 2857-1, TSHR #### [facility] ([id number]) [address], [address] [place] [address] Sodium [Moles/Vol] 142 mmol/L Normal 134-146 [facility] Comment on above: Performed By: #### C BC, CMP, 2498-4, 87383-9, 2857-1, TSHR #### [facility] ([id number]) [address], [address] [place] [address] Urea nitrogen [Mass/Vol] 13 mg/dL Normal 5-23 [facility] Comment on above: Performed By: #### Remberto BC, CMP, 2498-4, 88949-2, 2857-1, TSHR #### [facility] ([id number]) [address], [address] [place] [address] IRONon 12-10-2024 Iron [Mass/Vol] 184 ug/dL Normal 50-212 [facility] Comment on above: Performed By: #### Remberto BC, CMP, 2498-4, 43636-0, 2857-1, TSHR #### [facility] ([id number]) [address], [address] [place] [address] Lipid 1996 panelon Cholesterol [Mass/Vol] 183 mg/dL Normal 150-200 [facility] Comment on above: Performed By: #### Remberto BC, CMP, 2498-4, 53097-6, 2857-1, TSHR #### [facility] ([id number]) [address], [address] [place] [address] Cholesterol in HDL [Mass/Vol] 38 mg/dL Low >39 [facility] Comment on above: Result Comment: HDL <40 mg/dL - High Risk HDL > or = 40mg/dL- Desirable HDL >60 mg/dL - Negative Risk Performed By: #### Remberto BC, CMP, 2498-4, 45978-2, 2857-1, TSHR #### [facility] ([id number]) [address], [address] [place] [address] Cholesterol in LDL [Mass/Vol] 121 mg/dL Normal <130 [facility] Comment on above: Result Comment: LDL <100 mg/dL - Desirable LDL >160 mg/dL - High Risk Performed By: #### C BC, CMP, 2498-4, 51028-2, 2857-1, TSHR #### [facility] ([id number]) [address], [address] [address] Cholesterol in VLDL [Mass/Vol] 24 mg/dL Normal 0-30 [facility] Comment on above: Performed By: #### C BC, CMP, 2498-4, 97207-4, 2857-1, TSHR #### [facility] ([id number]) [address], [address] [place] [address] CHOLESTEROL:HDL 4.8 Normal 1.0-5.0 [facility] Comment on above: Performed By: #### C BC, CMP, 2498-4, 51395-2, 2857-1, TSHR #### [facility] ([id number]) [address] [address] Triglyceride [Mass/Vol] 119 mg/dL Normal 27-150 [facility] Comment on above: Performed By: #### C BC, CMP, 2498-4, 53830-5, 2857-1, TSHR #### [facility] ([id number]) [address] [address] Prostate specific Ag [Mass/V ol]on 12-10-2024 PSA SCREEN 0.57 ng/mL Normal 0.00-4.00 [facility] Comment on above: Result Comment: The method used for this test is Graciela Shashi DXI chemiluminescent immunoassay. Values obtained by different assay methods cannot be used interchangeably. Performed By: #### C BC, CMP, 2498-4, 42988-6, 2857-1, TSHR #### [facility] ([id number]) [address] [address] TSH WITH REFLEXon 12-10-2024 TSH 1.34 uIU/mL Normal 0.49-4.67 [facility] Comment on above: Performed By: #### C BC, CMP, 2498-4, 11980-6, 2857-1, TSHR #### [facility] ([id number]) [address] [address] COMPLETE BLOOD COUNTon 09-11 Erythrocyte distribution width (RBC) [Ratio] 13.4 % Normal 11.5-15.0 [facility] Comment on above: Performed By: #### Remberto BC, CMP, 2857-1, TSHR #### [facility] ([id number]) [address] [address] Hematocrit (Bld) [Volume fraction] 47.4 % Normal 39-49 [facility] Comment on above: Performed By: #### Remberto BC, CMP, 2857-1, TSHR #### [facility] ([id number]) [address] [address] Hemoglobin (Bld) [Mass/Vol] 16.4 g/dL Normal 13.0-17.0 [facility] Comment on above: Performed By: #### C BC, CMP, 2857-1, TSHR #### [facility] ([id number]) [address] [address] MCH (RBC) [Entitic mass] 32.4 pg Normal 27-34 [facility] Comment on above: Performed By: #### C BC, CMP, 2857-1, TSHR #### [facility] ([id number]) [address], [address] [place] [address] MCHC (RBC) [Mass/Vol] 34.6 g/dL Normal 32-36 [facility] Comment on above: Performed By: #### C BC, CMP, 2857-1, TSHR #### [facility] ([id number]) [address], [address] [place] [address] MCV (RBC) [Entitic vol] 94 fL Normal 80-100 [facility] Comment on above: Performed By: #### C BC, CMP, 2857-1, TSHR #### [facility] ([id number]) [address], [address] [place] [address] Platelet mean volume (Bld) [Entitic vol] 9.4 fL Normal 7-12 [facility] Comment on above: Performed By: #### Remberto BC, CMP, 2857-1, TSHR #### [facility] ([id number]) [address], [address] [place] [address] Platelets (Bld) [#/Vol] 235 10*3/uL Normal 150-450 [facility] Comment on above: Performed By: #### Remberto BC, CMP, 2857-1, TSHR #### [facility] ([id number]) [address], [address] [place] [address] RBC COUNT 5.06 X10E12/L Normal 4.10-5.70 [facility] Comment on above: Performed By: #### C BC, CMP, 2857-1, TSHR #### [facility] ([id number]) [address], [address] [place] [address] WBC (Bld) [#/Vol] 7.0 10*3/uL Normal 4.0-11.0 [facility] Comment on above: Performed By: #### C BC, CMP, 2857-1, TSHR #### [facility] ([id number]) [address], [address] [place] [address] COMPREHENSIVE METABOLIC PANE Vern 09-11-2024 Albumin [Mass/Vol] 4.5 g/dL Normal 3.2-5.3 [facility] Comment on above: Performed By: #### C BC, CMP, 2857-1, TSHR #### [facility] ([id number]) [address], [address] [place] [address] ALP [Catalytic activity/Vol] 133 U/L High 39-130 [facility] Comment on above: Performed By: #### Remberto CRANDALL, CMP, 2857-1, TSHR #### [facility] ([id number]) [address], [address] [place] [address] ALT [Catalytic activity/Vol] 20 U/L Normal 0-40 [facility] Comment on above: Performed By: #### Remberto BC, CMP, 2857-1, TSHR #### [facility] ([id number]) [address], [address] [place] [address] Anion gap [Moles/Vol] 10 mmol/L Normal 5-15 [facility] Comment on above: Performed By: #### Remberto CRANDALL, CMP, 2857-1, TSHR #### [facility] ([id number]) [address], [address] [place] [address] AST [Catalytic activity/Vol] 26 U/L Normal 0-41 [facility] Comment on above: Performed By: #### Remberto BC, CMP, 2857-1, TSHR #### [facility] ([id number]) [address], [address] [place] [address] Bilirubin [Mass/Vol] 0.8 mg/dL Normal 0.3-1.2 [facility] Comment on above: Performed By: #### Remberto BC, CMP, 2857-1, TSHR #### [facility] ([id number]) [address], [address] [place] [address] Calcium [Mass/Vol] 9.6 mg/dL Normal 8.5-10.5 [facility] Comment on above: Performed By: #### Remberto CRANDALL, CMP, 2857-1, TSHR #### [facility] ([id number]) [address], [address] [place] [address] Chloride [Moles/Vol] 103 mmol/L Normal 98-109 [facility] Comment on above: Performed By: #### Remberto CRANDALL CMP, 2857-1, TSHR #### [facility] ([id number]) [address], [address] [place] [address] CO2 [Moles/Vol] 27 mmol/L Normal 22-32 [facility] Comment on above: Performed By: #### Remberto CRANDALL CMP, 2857-1, TSHR #### [facility] ([id number]) [address], [address] [place] [address] Creatinine [Mass/Vol] 1.05 mg/dL Normal 0.60-1.30 [facility] Comment on above: Result Comment: METH OD TRACEABLE TO IDMS STANDARD Performed By: #### Remberto CRANDALL CMP, 2857-1, TSHR #### [facility] ([id number]) [address], [address] [place] [address] GFR/1.73 sq M.predicted among non-blacks MDRD (S/P/Bld) [Vol rate/Area] 83 mL/min/{1.73_m2} Normal >59 [facility] Comment on above: Result Comment: Reported eGFR is based on the CKD-EPI 2020 equation that does not use a race coefficient. Performed By: #### Remberto CRANDALL, CMP, 2857-1, TSHR #### [facility] ([id number]) [address], [address] [place] [address] Glucose [Mass/Vol] 87 mg/dL Normal 65-99 [facility] Comment on above: Performed By: #### Remberto CRANDALL CMP, 2857-1, TSHR #### [facility] ([id number]) [address], [address] [place] [address] Potassium [Moles/Vol] 3.9 mmol/L Normal 3.5-5.0 [facility] Comment on above: Performed By: #### Remberto CRANDALL CMP, 2857-1, TSHR #### [facility] ([id number]) [address], [address] [place] [address] Protein [Mass/Vol] 7.3 g/dL Normal 6.0-8.0 [facility] Comment on above: Performed By: #### Remberto CRANDALL CMP, 2857-1, TSHR #### [facility] ([id number]) [address], [address] [place] [address] Sodium [Moles/Vol] 140 mmol/L Normal 134-146 [facility] Comment on above: Performed By: #### Remberto CRANDALL CMP, 2857-1, TSHR #### [facility] ([id number]) [address] [place] [address] Urea nitrogen [Mass/Vol] 6 mg/dL Normal 5-23 [facility] Comment on above: Performed By: #### Remberto CRANDALL CMP, 2857-1, TSHR #### [facility] ([id number]) [address], [address] [place] [address] Prostate specific Ag [Mass/V ol]on 09-11-2024 PSA SCREEN 0.71 ng/mL Normal 0.00-4.00 [facility] Comment on above: Result Comment: The method used for this test is Graciela Shashi DXI chemiluminescent immunoassay. Values obtained by different assay methods cannot be used interchangeably. Performed By: #### Remberto CRANDALL CMP, 2857-1, TSHR #### [facility] ([id number]) [address], [address] [place] [address] TSH WITH REFLEXon 09-11-2024 TSH 1.29 uIU/mL Normal 0.49-4.67 [facility] Comment on above: Performed By: #### C BC, CMP, 2857-1, TSHR #### [facility] ([id number]) [address] [facility] [facility] [address] [place] [address] CBC AND AUTO DIFFon 05-15-20 ABSOLUTE BASOPHIL 0.1 X10E9/L Normal 0.0-0.2 [facility] Comment on above: Performed By: #### C BCA, CMP, 3040-3, 52810-8 #### [facility] ([id number]) [address] [place] [address] ABSOLUTE NEUTROPHIL 5.7 X10E9/L Normal 1.5-6.6 [facility] Comment on above: Performed By: #### C BCA, CMP, 3040-3, 27683-2 #### [facility] ([id number]) [address] [place] [address] Basophils/100 WBC (Bld) 0.7 % Normal [facility] Comment on above: Performed By: #### C BCA, CMP, 3040-3, 23094-4 #### [facility] ([id number]) [address] [place] [address] Eosinophils (Bld) [#/Vol] 0.4 10*3/uL Normal 0.0-0.4 [facility] Comment on above: Performed By: #### C BCA, CMP, 3040-3, 85046-1 #### [facility] ([id number]) [address] [place] [address] Eosinophils/100 WBC (Bld) 4.9 % Normal [facility] Comment on above: Performed By: #### C BCA, CMP, 3039-3, 53475-6 #### [facility] ([id number]) [address] [place] [address] Erythrocyte distribution width (RBC) [Ratio] 12.3 % Normal 11.5-15.0 [facility] Comment on above: Performed By: #### C ARASH, [facility], 3039-3, 34479-9 #### [facility] ([id number]) [address] [place] [address] Hematocrit (Bld) [Volume fraction] 41.8 % Normal 39-49 [facility] Comment on above: Performed By: #### C [place] ANTOINE, 3, 55196-2 #### [facility] ([id number]) [address] [place] [address] Hemoglobin (Bld) [Mass/Vol] 15.1 g/dL Normal 13.0-17.0 [facility] Comment on above: Performed By: #### C ARASH [facility], 3, 66920-7 #### [facility] ([id number]) [address] [place] [address] 43494 Lymphocytes (Bld) [#/Vol] 1.4 10*3/uL Normal 1.0-3.5 [facility] Comment on above: Performed By: #### C ARASH CMP, 3043, 75299-0 #### [facility] ([id number]) [address] [place] [address] 58295 Lymphocytes/100 WBC (Bld) 17.3 % Normal [facility] Comment on above: Performed By: #### C ARASH, CMP, 3, 09302-1 #### [facility] ([id number]) [address] [place] [address] 86302 MCH (RBC) [Entitic mass] 32.3 pg Normal 27-34 [facility] Comment on above: Performed By: #### C A[place] ANTOINE, 3040-3, 88528-6 #### [facility] ([id number]) [address] [place] [address] 26031 MCHC (RBC) [Mass/Vol] 36.0 g/dL Normal 32-[address] [facility] Comment on above: Performed By: #### Remberto ANTOINE CMP, 3039-3, 21301-4 #### [facility] ([id number]) [address] [place] [address] 61252 MCV (RBC) [Entitic vol] 90 fL Normal 80-100 [facility] Comment on above: Performed By: #### Remberto ANTOINE CMP, 0-3, 67095-6 #### [facility] ([id number]) [address] [place] [address] 46695 Monocytes (Bld) [#/Vol] 0.6 10*3/uL Normal 0-0.9 [facility] Comment on above: Performed By: #### Remberto ANTOINE CMP, 3, 32869-6 #### [facility] ([id number]) [address] [place] [address] 17813 Monocytes/100 WBC (Bld) 7.6 % Normal [facility] Comment on above: Performed By: #### Remberto ANTOINE CMP, 3043, 36571-9 #### [facility] ([id number]) [address] [place] [address] 11407 Neutrophils/100 WBC (Bld) 69.5 % Normal [facility] Comment on above: Performed By: #### Remberto ANTOINE CMP, 3039-3, 88592-3 #### [facility] ([id number]) [address] [place] [address] 24379 Platelet mean volume (Bld) [Entitic vol] 8.2 fL Normal 7-12 [facility] Comment on above: Performed By: #### C BCA, CMP, 3040-3, 97245-7 #### [facility] ([id number]) [address] [place] [address] 78950 Platelets (Bld) [#/Vol] 254 10*3/uL Normal 150-450 [facility] Comment on above: Performed By: #### C BCA, CMP, 3040-3, 59387-7 #### [facility] ([id number]) [address] [place] [address] 55178 RBC COUNT 4.66 X10E12/L Normal 4.10-5.70 [facility] Comment on above: Performed By: #### C BCA, CMP, 3040-3, 89739-2 #### [facility] ([id number]) [address] [place] [address] 22346 WBC (Bld) [#/Vol] 8.1 10*3/uL Normal 4.0-11.0 [facility] Comment on above: Performed By: #### C BCA, CMP, 3040-3, 54690-9 #### [facility] ([id number]) [address] [place] [address] 24848 COMPREHENSIVE METABOLIC PANE Vern 05-15-2024 Albumin [Mass/Vol] 4.5 g/dL Normal 3.2-5.3 [facility] Comment on above: Performed By: #### C BCA, CMP, 3040-3, 48975-3 #### [facility] ([id number]) [address] [place] [address] 61053 ALP [Catalytic activity/Vol] 105 U/L Normal 39-130 [facility] Comment on above: Performed By: #### C BCA, CMP, 3040-3, 72144-5 #### [facility] ([id number]) [address] [place] [address] 30137 ALT [Catalytic activity/Vol] 33 U/L Normal 0-40 [facility] Comment on above: Performed By: #### C BCA, CMP, 3040-3, 98321-3 #### [facility] ([id number]) [address] [place] [address] 91395 Anion gap [Moles/Vol] 9 mmol/L Normal 5-[address] [facility] Comment on above: Performed By: #### C BCA, CMP, 3040-3, 11147-0 #### [facility] ([id number]) [address] [place] [address] 82043 AST [Catalytic activity/Vol] 29 U/L Normal 0-41 [facility] Comment on above: Performed By: #### C BCA, CMP, 3040-3, 03676-3 #### [facility] ([id number]) [address] [place] [address] 33213 Bilirubin [Mass/Vol] 0.9 mg/dL Normal 0.3-1.2 [facility] Comment on above: Performed By: #### C BCA, CMP, 3040-3, 72447-3 #### [facility] ([id number]) [address] [place] [address] 35121 Calcium [Mass/Vol] 9.1 mg/dL Normal 8.5-10.5 [facility] Comment on above: Performed By: #### C BCA, CMP, 3040-3, 93296-2 #### [facility] ([id number]) [address] [place] [address] 73083 Chloride [Moles/Vol] 96 mmol/L Low 98-109 [facility] Comment on above: Performed By: #### C BCA, CMP, 3040-3, 96858-1 #### [facility] ([id number]) [address] [place] [address] 39232 CO2 [Moles/Vol] 24 mmol/L Normal 22-32 [facility] Comment on above: Performed By: #### C ALEX[place] ANTOINE, 3040-3, 27783-2 #### [facility] ([id number]) [address] [place] [address] 86086 Creatinine [Mass/Vol] 0.91 mg/dL Normal 0.70-1.[address] [facility] Comment on above: Result Comment: METH OD TRACEABLE TO IDMS STANDARD Performed By: #### C A[place] ANTOINE, 3040-3, 53888-3 #### [facility] ([id number]) [address] [place] [address] 75771 eGFR (CKD-EPI) NON-RACE DEPENDENT >90 Normal >59 [facility] Comment on above: Result Comment: Reported eGFR is based on the CKD-EPI 2020 equation that does not use a race coefficient. Performed By: #### C ALEX[place] ANTOINE, 3040-3, 36498-8 #### [facility] ([id number]) [address] [place] [address] 91764 Glucose [Mass/Vol] 97 mg/dL Normal 65-99 [facility] Comment on above: Performed By: #### C ALEXANDRIA ANTOINE, 3040-3, 19316-2 #### [facility] ([id number]) [address] [place] [address] 87689 Potassium [Moles/Vol] 3.2 mmol/L Low 3.5-5.[address] [facility] Comment on above: Performed By: #### C ALEXANDRIA ANTOINE, 3040-3, 96531-0 #### [facility] ([id number]) [address] [place] [address] 19054 Protein [Mass/Vol] 7.2 g/dL Normal 6.0-8.0 [facility] Comment on above: Performed By: #### C ALEXANDRIA ANTOINE, 3040-3, 90769-9 #### [facility] ([id number]) [address] [place] [address] 59795 Sodium [Moles/Vol] 129 mmol/L Low 134-146 [facility] Comment on above: Performed By: #### C BCA, CMP, 3040-3, 28797-3 #### [facility] ([id number]) [address] [place] [address] 29308 Urea nitrogen [Mass/Vol] 15 mg/dL Normal 5-23 [facility] Comment on above: Performed By: #### C BCA, CMP, 3040-3, 92603-0 #### [facility] ([id number]) [address] [place] [address] 70930 LIPASEon 05-15-2024 Lipase [Catalytic activity/Vol] 37 U/L Normal 17-40 [facility] Comment on above: Performed By: #### C BCA, CMP, 3040-3, 01981-7 #### [facility] ([id number]) [address] [place] [address] 72198 Lactate (P cherie) [Moles/Vol]o n 05-15-2024 LACTATE W/REFLEX 1.0 mmol/L Normal 0.4-2.0 [facility] Comment on above: Result Comment: Result did not trigger repeat Lactate, re-order if needed. Performed By: #### 3 2133-1 #### [facility] ([id number]) [address] [place] [address] 60439 Troponin I.cardiac High sens itivity method [Mass/Vol]on 05-15-2024 1 HOUR TROP I, HIGH SENSITIVITY 3 ng/L Normal <21 [facility] Comment on above: Performed By: #### 8 9579-7 #### [facility] ([id number]) [address] [place] [address] 02391 TROPONIN I, HIGH SENSITIVITY 3 ng/L Normal <21 [facility] Comment on above: Performed By: #### C BCA, CMP, 3040-3, 33060-2 #### [facility] ([id number]) [address] [facility], [place] [address] Bacteria [Presence] in Urine by AutomatedOrdered By: Nish Davidson on 03-03-2024 Bacteria Auto Ql (U) None seen [HPF] None Seen [facility] Basophils Auto (Bld) [#/Vol] Ordered By: James De on 03-03-2024 Basophils (Bld) [#/Vol] 0.0 10*3/uL 0.0-0.2 [facility] Basophils/100 WBC Auto (Bld) Ordered By: James De on 03-03-2024 Basophils/100 WBC (Bld) 0.4 % . F [facility] Bilirubin Test strip Ql (U)O rdered By: Nish Davidson on 03-03-2024 Bilirubin Ql (U) Negative Negative [facility] Calcium [Mass/volume] in Ser um or PlasmaOrdered By: James De on 03-03-2024 Calcium [Mass/Vol] 9.5 mg/dL 8.6-10.3 [facility] Carbon dioxide, total [Moles /volume] in Serum or PlasmaOrdered By: James De on 03-03-2024 CO2 [Moles/Vol] 25.3 mmol/L 21.0-31.0 [facility] Chloride [Moles/volume] in S dereje or PlasmaOrdered By: James De on 03-03-2024 Chloride [Moles/Vol] 102 mmol/L 98-107 [facility] Color Auto (U)Ordered By: Dimitry Davidson on 03-03-2024 Color (U) Yellow Yellow [facility] Creatinine [Mass/volume] in Serum or PlasmaOrdered By: James De on 03-03-2024 Creatinine [Mass/Vol] 1.18 mg/dL 0.70-1.30 [facility] Eosinophils Auto (Bld) [#/Vo l]Ordered By: James De on 03-03-2024 Eosinophils (Bld) [#/Vol] 0.2 10*3/uL 0.0-0.45 [facility] Eosinophils/100 WBC Auto (Bl d)Ordered By: James De on 03-03-2024 Eosinophils/100 WBC (Bld) 2.6 % . [facility] Epithelial cells.squamous [# /area] in Urine sediment by Automated countOrdered By: Nish Davidson on 03-03-2024 Epithelial cells.squamous Auto (Urine sed) [#/Area] 1-2 [HPF] 0-2 [facility] Erythrocyte distribution wid th Auto (RBC) [Ratio]Ordered By: James De on 03-03-2024 Erythrocyte distribution width (RBC) [Ratio] 12.6 % 12.0-14.8 [facility] Erythrocytes [#/area] in Uri ne sediment by Automated countOrdered By: Nish Davidson on 03-03-2024 RBC Auto (Urine sed) [#/Area] None seen [HPF] 0-4 [facility] Glucose [Mass/volume] in Ser um or PlasmaOrdered By: James De on 03-03-2024 Glucose [Mass/Vol] 83 mg/dL 70-100 [facility] Comment on above: ADA recommended refe rence rangeRandom Glucose Reference Range is dependent on time and content of last meal. Glucose of more than 200 mg/dL in a nonstressed, ambulatory subject supports the diagnosis of Diabetes Mellitus. Glucose [Mass/volume] in Uri ne by Test stripOrdered By: Nish Davidson on 03-03-2024 Glucose Test strip (U) [Mass/Vol] Normal mg/dL Normal [facility] Hematocrit Auto (Bld) [Volum e fraction]Ordered By: James De on 03-03-2024 Hematocrit (Bld) [Volume fraction] 52.6 % High 38.8-50.0 [facility] Hemoglobin Test strip Ql (U) Ordered By: Nish Davidson on 03-03-2024 Hemoglobin Ql (U) Negative Negative [facility] Hemoglobin [Mass/volume] in BloodOrdered By: James De on 03-03-2024 Hemoglobin (Bld) [Mass/Vol] 18.5 g/dL High 13.0-17.0 [facility] Hyaline casts [#/area] in Ur ine sediment by Automated countOrdered By: Nish Davidson on 03-03-2024 Hyaline casts Auto (Urine sed) [#/Area] 0-8 [LPF] 0-8 [facility] Ketones Test strip Ql (U)Ord ered By: Nish Davidson on 03-03-2024 Ketones Ql (U) 2+ High Negative [facility] Leukocyte esterase [Presence ] in Urine by Test stripOrdered By: Nish Davidson on 03-03-2024 Leukocyte esterase Test strip Ql (U) Negative Negative [facility] Leukocytes [#/area] in Urine sediment by Automated countOrdered By: Nish Davidson on 03-03-2024 WBC Auto (Urine sed) [#/Area] 1-2 [HPF] 0-4 [facility] Leukocytes [#/volume] correc ernst for nucleated erythrocytes in Blood by Automated counOrdered By: James De on 03-03-2024 WBC corrected for nucl RBC Auto (Bld) [#/Vol] 9.0 10*3/uL 4.1-10.5 [facility] Lymphocytes Auto (Bld) [#/Vo l]Ordered By: James De on 03-03-2024 Lymphocytes (Bld) [#/Vol] 1.2 10*3/uL 1.00-4.8 [facility] Lymphocytes/100 WBC Auto (Bl d)Ordered By: James De on 03-03-2024 Lymphocytes/100 WBC (Bld) 13.4 % . [facility] MCH Auto (RBC) [Entitic mass ]Ordered By: James De on 03-03-2024 MCH (RBC) [Entitic mass] 32.8 pg 27.5-35.2 [facility] MCHC Auto (RBC) [Mass/Vol]Or dered By: James De on 03-03-2024 MCHC (RBC) [Mass/Vol] 35.1 g/dL 32.5-35.6 [facility] MCV Auto (RBC) [Entitic vol] Ordered By: James De on 03-03-2024 MCV (RBC) [Entitic vol] 93.4 fL 83.5-101 F [facility] Monocyte distribution width [Entitic volume] in Blood by AutomatedOrdered By: James De on 03-03-2024 Monocyte distribution width Auto (Bld) [Entitic vol] 17.08 % 0.00-20.00 [facility] Monocytes Auto (Bld) [#/Vol] Ordered By: James De on 03-03-2024 Monocytes (Bld) [#/Vol] 0.8 10*3/uL 0.0-0.8 [facility] Monocytes/100 WBC Auto (Bld) Ordered By: James De on 03-03-2024 Monocytes/100 WBC (Bld) 8.7 % . F [facility] Mucus [Presence] in Urine by AutomatedOrdered By: Nish Davidson on 03-03-2024 Mucus Auto Ql (U) 1+ [LPF] Abnormal [facility] Neutrophils Auto (Bld) [#/Vo l]Ordered By: James De on 03-03-2024 Neutrophils (Bld) [#/Vol] 6.7 10*3/uL 1.8-7.7 [facility] Neutrophils/100 WBC Auto (Bl d)Ordered By: James De on 03-03-2024 Neutrophils/100 WBC (Bld) 74.9 % . [facility] Nitrite Test strip Ql (U)Ord ered By: Nish Davidson on 03-03-2024 Nitrite Ql (U) Negative Negative [facility] No Panel InformationOrdered By: James De on 03-03-2024 Estimated GFR (CKD-EPI) > 60.0 mL/Min [facility] Creatinine Clearance (Chem 68.43 [facility] Nucleated erythrocytes [Pres ence] in Blood by Automated countOrdered By: James De on 03-03-2024 Nucleated RBC Auto Ql (Bld) 0.4 /100{WBC} 0-0.5 [facility] Platelet adequacy [Presence] in Blood by Light microscopyOrdered By: James De on 03-03-2024 Platelets LM Ql (Bld) Normal Normal [facility] Platelet mean volume Auto (B ld) [Entitic vol]Ordered By: James De on 03-03-2024 Platelet mean volume (Bld) [Entitic vol] 8.4 fL 6.6-10.1 [facility] Platelet morphology finding [Identifier] in BloodOrdered By: James De on 03-03-2024 Platelet morphology finding Nom (Bld) Normal Normal [facility] Platelets Auto (Bld) [#/Vol] Ordered By: James De on 03-03-2024 Platelets (Bld) [#/Vol] 207 10*3/uL 150-450 [facility] Potassium [Moles/volume] in Serum or PlasmaOrdered By: James De on 03-03-2024 Potassium [Moles/Vol] 3.7 mmol/L 3.5-5.1 [facility] Protein Test strip (U) [Mass /Vol]Ordered By: Nish Davidson on 03-03-2024 Protein (U) [Mass/Vol] Trace mg/dL High Negative F [facility] RBC Auto (Bld) [#/Vol]Ordere d By: James De on 03-03-2024 RBC (Bld) [#/Vol] 5.64 10*6/uL High 3.90-5.[address] [facility] RBC morphologyOrdered By: Asad De on 03-03-2024 RBC morphology finding Nom (Bld) Normal Normal [facility] Serum or plasma anion gap de terminationOrdered By: James De on 03-03-2024 Anion gap [Moles/Vol] 12.4 mmol/L 6.0-15.0 [facility] Sodium [Moles/volume] in Ser um or PlasmaOrdered By: James De on 03-03-2024 Sodium [Moles/Vol] 136 mmol/L 136-145 [facility] Specific gravity Test strip (U) [Rel density]Ordered By: Nish Davidson on 03-03-2024 Specific gravity (U) [Rel density] 1.015 1.001-1.030 [facility] Transitional cells [#/area] in Urine by Computer assisted methodOrdered By: Nish Davidson on 03-03-2024 Transitional cells Computer assisted (U) [#/Area] 1-2 [HPF] High 0-1 [facility] Urea nitrogen [Mass/volume] in Serum or PlasmaOrdered By: James De on 03-03-2024 Urea nitrogen [Mass/Vol] 8 mg/dL 7-25 [facility] Urine appearanceOrdered By: Nish Davidson on 03-03-2024 Appearance (U) Clear Clear [facility] Urobilinogen Test strip (U) [Mass/Vol]Ordered By: Nish Davidson on 03-03-2024 Urobilinogen (U) [Mass/Vol] Normal mg/dL Normal [facility] WBC Auto (Bld) [#/Vol]Ordere d By: James De on 03-03-2024 WBC (Bld) [#/Vol] 9.0 10*3/uL 4.1-10.5 [facility] pH Test strip (U)Ordered By: Nish Davidson on 03-03-2024 pH (U) 6.0 [pH] 5.0-9.0 [facility] Surgical Pathologyon 024 Surgical Pathology Normal [facility] Comment on above: Result Comment: [facility] [address] [place] [address] Surgical Pathology Consultation Patient Name:CHAI ARNOLD:1970 (Age: 53)Gender:MTaken:4Reported:02/22/2024hysician(s):Jennyfer Augustin MD ([phone])Copy To: Rec. #:[id number]: #[id number] Final Pathologic Diagnosis 1. Colon polyp 55cm: Hyperplastic polyp. 2. Colon polyp 35cm: Tubular adenoma. Report Electronically Signed Out 02/22/2024Keren Bee MD Interpretation performed at [facility], [address] [place], [address], License number: [id number]. Clinical History Change in bowel habits. Gross Description 1. Received in formalin labeled, CATALINA, 55 cm is a mccray-richardson 0.3 cm soft tissue.. The specimen is filtered and entirely submitted in a single cassette. (1, ns, [id number], m8) SM 2. Received in formalin labeled, FRANCIAZ, 35 cm is a pale richardson 0.3 cm the specimen is filtered and entirely submitted in a single cassette. (1, ns, [id number], m8) slm/02/20/2024GR Specimen(s) Received 1: Colon polyp 55cm 2: Colon polyp 35cm Fee Codes(s): 1; 59440 2; 00060 Alanine aminotransferase [En zymatic activity/volume] in Serum or PlasmaOrdered By: Jennyfer Winkler on 01-29-2024 ALT [Catalytic activity/Vol] 24 U/L 7-52 [facility] Albumin [Mass/volume] in Ser um or Plasma by Bromocresol green (BCG) dye binding methoOrdered By: Jennyfer Winkler on 01-29-2024 Albumin BCG dye [Mass/Vol] 4.9 g/dL 3.5-5.7 [facility] Alkaline phosphatase [Enzyma tic activity/volume] in Serum or PlasmaOrdered By: Jennyfer Winkler on 01-29-2024 ALP [Catalytic activity/Vol] 96 U/L 34-104 [facility] Amylase [Enzymatic activity/ volume] in Serum or PlasmaOrdered By: Jennyfer Winkler on 01-29-2024 Amylase [Catalytic activity/Vol] 47 U/L 29-103 [facility] Aspartate aminotransferase [ Enzymatic activity/volume] in Serum or PlasmaOrdered By: Jennyfer Winkler on 01-29-2024 AST [Catalytic activity/Vol] 21 U/L 13-39 [facility] Basophils Auto (Bld) [#/Vol] Ordered By: Jennyfer Winkler on 01-29-2024 Basophils (Bld) [#/Vol] N/A F [facility] Basophils/100 WBC Auto (Bld) Ordered By: Jennyfer Winkler on 01-29-2024 Basophils/100 WBC (Bld) N/A F [facility] Bilirubin Test strip Ql (U)O rdered By: Jennyfer Winkler on 01-29-2024 Bilirubin Ql (U) Negative Negative [facility] Bilirubin.direct [Mass/volum e] in Serum or PlasmaOrdered By: Jennyfer Winkler on 01-29-2024 Bilirubin.direct [Mass/Vol] 0.10 mg/dL 0.03-0.18 [facility] Bilirubin.total [Mass/volume ] in Serum or PlasmaOrdered By: Jennyfer Winkler on 01-29-2024 Bilirubin [Mass/Vol] 0.8 mg/dL 0.3-1.0 [facility] Calcium [Mass/volume] in Ser um or PlasmaOrdered By: Jennyfer Winkler on 01-29-2024 Calcium [Mass/Vol] 10.2 mg/dL 8.6-10.3 [facility] Carbon dioxide, total [Moles /volume] in Serum or PlasmaOrdered By: Jennyfer Winkler on 01-29-2024 CO2 [Moles/Vol] 26.4 mmol/L 21.0-31.0 [facility] Chloride [Moles/volume] in S dereje or PlasmaOrdered By: Jennyfer Winkler on 01-29-2024 Chloride [Moles/Vol] 98 mmol/L 98-107 [facility] Color Auto (U)Ordered By: Ella Winkler on 01-29-2024 Color (U) Colorless Yellow [facility] Creatinine [Mass/volume] in Serum or PlasmaOrdered By: Jennyfer Winkler on 01-29-2024 Creatinine [Mass/Vol] 1.07 mg/dL 0.70-1.30 [facility] Eosinophils Auto (Bld) [#/Vo l]Ordered By: Jennyfer Winkler on 01-29-2024 Eosinophils (Bld) [#/Vol] N/A [facility] Eosinophils/100 WBC Auto (Bl d)Ordered By: Jennyfer Winkler on 01-29-2024 Eosinophils/100 WBC (Bld) N/A [facility] Eosinophils/100 WBC Manual c nt (Bld)Ordered By: Jennyfer Winkler on 01-29-2024 Eosinophils/100 WBC (Bld) 5 % High 1-3 [facility] Erythrocyte distribution wid th Auto (RBC) [Ratio]Ordered By: Jennyfer Winkler on 01-29-2024 Erythrocyte distribution width (RBC) [Ratio] 12.1 % 12.0-14.8 [facility] Giant platelets/100 leukocyt es [Ratio] in Blood by Manual countOrdered By: Jennyfer Winkler on 01-29-2024 Giant platelets/100 WBC Manual cnt (Bld) [Ratio] 1 /100{WBC} [facility] Globulin Calc (S) [Mass/Vol] Ordered By: Jennyfer Winkler on 01-29-2024 Globulin (S) [Mass/Vol] 3.1 g/dL F [facility] Glucose [Mass/volume] in Ser um or PlasmaOrdered By: Jennyfer Winkler on 01-29-2024 Glucose [Mass/Vol] 103 mg/dL High 70-100 [facility] Comment on above: ADA recommended refe rence rangeRandom Glucose Reference Range is dependent on time and content of last meal. Glucose of more than 200 mg/dL in a nonstressed, ambulatory subject supports the diagnosis of Diabetes Mellitus. Glucose [Mass/volume] in Uri ne by Test stripOrdered By: Jennyfer Winkler on 01-29-2024 Glucose Test strip (U) [Mass/Vol] Normal mg/dL Normal [facility] Hematocrit Auto (Bld) [Volum e fraction]Ordered By: Jennyfer Winkler on 01-29-2024 Hematocrit (Bld) [Volume fraction] 54.1 % High 38.8-50.0 [facility] Hemoglobin Test strip Ql (U) Ordered By: Jennyfer Winkler on 01-29-2024 Hemoglobin Ql (U) Negative Negative [facility] Hemoglobin [Mass/volume] in BloodOrdered By: Jennyfer Winkler on 01-29-2024 Hemoglobin (Bld) [Mass/Vol] 18.9 g/dL High 13.0-17.0 [facility] Ketones Test strip Ql (U)Ord ered By: Jennyfer Winkler on 01-29-2024 Ketones Ql (U) Negative Negative [facility] Leukocyte esterase [Presence ] in Urine by Test stripOrdered By: Jennyfer Winkler on 01-29-2024 Leukocyte esterase Test strip Ql (U) Negative Negative [facility] Leukocytes [#/volume] correc ernst for nucleated erythrocytes in Blood by Automated counOrdered By: Jennyfer Winkler on 01-29-2024 WBC corrected for nucl RBC Auto (Bld) [#/Vol] 6.8 10*3/uL 4.1-10.5 [facility] Lipase [Enzymatic activity/v olume] in Serum or PlasmaOrdered By: Jennyfer Winkler on 01-29-2024 Lipase [Catalytic activity/Vol] 29.0 U/L 11.0-82.0 [facility] Lymphocytes Auto (Bld) [#/Vo l]Ordered By: Jennyfer Winkler on 01-29-2024 Lymphocytes (Bld) [#/Vol] N/A [facility] Lymphocytes/100 WBC Auto (Bl d)Ordered By: Jennyfer Winkler on 01-29-2024 Lymphocytes/100 WBC (Bld) N/A [facility] Lymphocytes/100 WBC Manual c nt (Bld)Ordered By: Jennyfer Winkler on 01-29-2024 Lymphocytes/100 WBC (Bld) 28 % 18-42 [facility] MCH Auto (RBC) [Entitic mass ]Ordered By: Jennyfer Winkler on 01-29-2024 MCH (RBC) [Entitic mass] 32.4 pg 27.5-35.2 [facility] MCHC Auto (RBC) [Mass/Vol]Or dered By: Jennyfer Winkler on 01-29-2024 MCHC (RBC) [Mass/Vol] 35.0 g/dL 32.5-35.6 [facility] MCV Auto (RBC) [Entitic vol] Ordered By: Jennyfer Winkler on 01-29-2024 MCV (RBC) [Entitic vol] 92.7 fL 83.5-101 F [facility] Monocyte distribution width [Entitic volume] in Blood by AutomatedOrdered By: Jennyfer Winkler on 01-29-2024 Monocyte distribution width Auto (Bld) [Entitic vol] 18.41 % 0.00-20.00 [facility] Monocytes Auto (Bld) [#/Vol] Ordered By: Jennyfer Winkler on 01-29-2024 Monocytes (Bld) [#/Vol] N/A [facility] Monocytes/100 WBC Auto (Bld) Ordered By: Jennyfer Winkler on 01-29-2024 Monocytes/100 WBC (Bld) N/A [facility] Monocytes/100 WBC Manual cnt (Bld)Ordered By: Jennyfer Winkler on 01-29-2024 Monocytes/100 WBC (Bld) 4 % 2-11 [facility] Neutrophils Auto (Bld) [#/Vo l]Ordered By: Jennyfer Winkler on 01-29-2024 Neutrophils (Bld) [#/Vol] N/A [facility] Neutrophils/100 WBC Auto (Bl d)Ordered By: Jennyfer Winkler on 01-29-2024 Neutrophils/100 WBC (Bld) N/A [facility] Nitrite Test strip Ql (U)Ord ered By: Jennyfer Winkler on 01-29-2024 Nitrite Ql (U) Negative Negative [facility] No Panel InformationOrdered By: Jennyfer Winkler on 01-29-2024 Estimated GFR (CKD-EPI) > 60.0 mL/Min [facility] Creatinine Clearance (Chem 83.32 [facility] Nucleated erythrocytes [Pres ence] in Blood by Automated countOrdered By: Jennyfer Winkler on 01-29-2024 Nucleated RBC Auto Ql (Bld) N/A [facility] Platelet adequacy [Presence] in Blood by Light microscopyOrdered By: Jennyfer Winkler on 01-29-2024 Platelets LM Ql (Bld) Normal Normal [facility] Platelet mean volume Auto (B ld) [Entitic vol]Ordered By: Jennyfer Winkler on 01-29-2024 Platelet mean volume (Bld) [Entitic vol] 8.1 fL 6.6-10.1 [facility] Platelet morphology finding [Identifier] in BloodOrdered By: Jennyfer Winkler on 01-29-2024 Platelet morphology finding Nom (Bld) Normal Normal [facility] Platelets Auto (Bld) [#/Vol] Ordered By: Jennyfer Winkler on 01-29-2024 Platelets (Bld) [#/Vol] 245 10*3/uL 150-450 [facility] Potassium [Moles/volume] in Serum or PlasmaOrdered By: Jennyfer Winkler on 01-29-2024 Potassium [Moles/Vol] 3.9 mmol/L 3.5-5.1 [facility] Protein Test strip (U) [Mass /Vol]Ordered By: Jennyfer Winkler on 01-29-2024 Protein (U) [Mass/Vol] Negative Negative [facility] Protein [Mass/volume] in Ser um or PlasmaOrdered By: Jennyfer Winkler on 01-29-2024 Protein [Mass/Vol] 8.0 g/dL 6.4-8.9 [facility] RBC Auto (Bld) [#/Vol]Ordere d By: Jennyfer Winkler on 01-29-2024 RBC (Bld) [#/Vol] 5.83 10*6/uL High 3.90-5.[address] [facility] RBC morphologyOrdered By: Ella Winkler on 01-29-2024 RBC morphology finding Nom (Bld) Normal Normal [facility] Segmented neutrophils/100 WB C Manual cnt (Bld)Ordered By: Jennyfer Winkler on 01-29-2024 Segmented neutrophils/100 WBC (Bld) 58 % 50-70 [facility] Serum or plasma albumin/glob ulin mass ratioOrdered By: Jennyfer Winkler on 01-29-2024 Albumin/Globulin [Mass ratio] 1.6 {ratio} [facility] Serum or plasma anion gap de terminationOrdered By: Jennyfer Winkler on 01-29-2024 Anion gap [Moles/Vol] 10.5 mmol/L 6[facility]0-15.0 [facility] or plasma non-glucuron idated bilirubin measurement (mass/volume)Ordered By: Jennyfer Winkler on 01-29-2024 Bilirubin.indirect [Mass/Vol] 0.7 mg/dL [facility] Sodium [Moles/volume] in Ser um or PlasmaOrdered By: Jennyfer Winkler on 01-29-2024 Sodium [Moles/Vol] 131 mmol/L Low 136-145 [facility] Specific gravity Test strip (U) [Rel density]Ordered By: Jennyfer Winkler on 01-29-2024 Specific gravity (U) [Rel density] 1.003 1.001-1.030 [facility] Urea nitrogen [Mass/volume] in Serum or PlasmaOrdered By: Jennyfer Winkler on 01-29-2024 Urea nitrogen [Mass/Vol] 6 mg/dL Low 7-25 [facility] Urine appearanceOrdered By: Jennyfer Winkler on 01-29-2024 Appearance (U) Clear Clear [facility] Urobilinogen Test strip (U) [Mass/Vol]Ordered By: Jennyfer Winkler on 01-29-2024 Urobilinogen (U) [Mass/Vol] Normal mg/dL Normal [facility] Variant lymphocytes/100 WBC Manual cnt (Bld)Ordered By: Jennyfer Winkler on 01-29-2024 Variant lymphocytes/100 WBC (Bld) 6 % 0-12 [facility] WBC Auto (Bld) [#/Vol]Ordere d By: Jennyfer Winkler on 01-29-2024 WBC (Bld) [#/Vol] 6.8 10*3/uL 4.1-10.5 [facility] pH Test strip (U)Ordered By: Jennyfer Winkler on 01-29-2024 pH (U) 7.5 [pH] 5.0-9.0 [facility] CBC AUTO DIFFon 03-26-2022 BASO # 0.1 103/ul Normal 0.0-0.1 [facility] Comment on above: Performed By: #### C BC #### [facility] [address] [address] [address] Pravin Travis Basophils/100 WBC (Bld) 0.7 % Normal 0.2-2.0 [facility] Comment on above: Performed By: #### C BC #### [facility] [address] [address] [address] Pravin Travis EO # 0.6 103/ul Normal 0.0-0.7 [facility] Comment on above: Performed By: #### C BC #### [facility] [address] [address] [address] Pravin Travis Eosinophils/100 WBC (Bld) 7.4 % Critically high 0.9-7.0 [facility] Comment on above: Performed By: #### C BC #### [facility] [address] [address] [address] Pravin Travis Erythrocyte distribution width (RBC) [Ratio] 12.3 % Normal 11.0-15.0 [facility] Comment on above: Performed By: #### C BC #### [facility] [address] [place] [address] Dr. Pravin Travis Hematocrit (Bld) [Volume fraction] 47.2 % Normal 42.0-54.0 [facility] Comment on above: Performed By: #### C BC #### [facility] [address] [address] [address] Pravin Travis Hemoglobin (Bld) [Mass/Vol] 16.2 g/dL Normal 14.0-18.0 [facility] Comment on above: Performed By: #### C BC #### [facility] [address] [place] [address] Dr. Pravin Travis IG # 0.03 10e3/ul Normal 0.00-0.03 [facility] Comment on above: Performed By: #### C BC #### [facility] [address] [place] [address] Dr. Pravin Travis IG % 0.4 % Normal 0.0-0.5 [facility] Comment on above: Performed By: #### C BC #### [facility] [address] [place] [address] Dr. Pravin Travis LYMPH # 2.1 103/ul Normal 1.2-3.8 [facility] Comment on above: Performed By: #### C BC #### [facility] [address] [place] [address] Dr. Pravin Travis Lymphocytes/100 WBC (Bld) 24.3 % Normal 20.5-60.0 [facility] Comment on above: Performed By: #### C BC #### [facility] [address] [place] [address] Dr. Pravin Travis MANUAL DIFF REQ NO Normal [facility] Comment on above: Performed By: #### C BC #### [facility] [address] [place] [address] Dr. Pravin Travis MCH (RBC) [Entitic mass] 32.6 pg Normal 25.9-34.0 [facility] Comment on above: Performed By: #### C BC #### [facility] [address] [place] [address] Dr. Pravin Travis MCHC (RBC) [Mass/Vol] 34.3 g/dL Normal 29.9-35.2 [facility] Comment on above: Performed By: #### C BC #### [facility] [address] [place] [address] Dr. Pravin Travis MCV (RBC) [Entitic vol] 95.0 fL Critically high 80.0-94 .0 [facility] Comment on above: Performed By: #### C BC #### [facility] [address] [address] [address] Pravin Travis MONO # 0.8 103/ul Normal 0.3-0.8 [facility] Comment on above: Performed By: #### C BC #### [facility] [address] [address] [address] Pravin Travis Monocytes/100 WBC (Bld) 9.7 % Normal 1.7-12.0 [facility] Comment on above: Performed By: #### C BC #### [facility] [address] [address] [address] Pravin Travis NEUT # 4.9 103/ul Normal 1.4-6.5 [facility] Comment on above: Performed By: #### C BC #### [facility] [address] [place] [address] Dr. Pravin Travis Neutrophils/100 WBC (Bld) 57.5 % Normal 43.0-75.0 [facility] Comment on above: Performed By: #### C BC #### [facility] [address] [place] [address] Dr. Pravin Travis Platelet mean volume (Bld) [Entitic vol] 10.4 fL Normal 9.5-13.5 [facility] Comment on above: Performed By: #### C BC #### [facility] [address] [place] [address] Dr. Pravin Travis PLT 215 103/ul Normal 150-450 [facility] Comment on above: Performed By: #### C BC #### [facility] [address] [place] [address] Dr. Pravin Travis RBC 4.97 106/ul Normal 4.70-6.10 [facility] Comment on above: Performed By: #### C BC #### [facility] [address] [place] [address] Dr. Pravin Travis WBC 8.6 103/ul Normal 4.0-11.0 [facility] Comment on above: Performed By: #### C BC #### [facility] [address] [place] [address] ABD/PELV W CONon [...] ALANA MORROW Date: 2022-03-26 01:45 Normal [facility] ER URINE PROFILEon 2 Bilirubin Ql (U) Negative Normal NEGATIVE [facility] Comment on above: Performed By: #### E RUR #### [facility] [address] [place] [address] Dr. Pravin Travis Clarity (U) SL CLOUDY Abnormal CLEAR [facility] Comment on above: Performed By: #### E RUR #### [facility] [address] [place] [address] Dr. Pravin Travis Color (U) LT. YELLOW Normal YELLOW [facility] Comment on above: Performed By: #### E RUR #### [facility] [address] [place] [address] Dr. Pravin Travis ERUAHMayi A micrscopic examination will be performed if indicated. Normal [facility] Comment on above: Performed By: #### E RUR #### [facility] [address] [place] [address] Dr. Pravin Travis Glucose Ql (U) Negative Normal NEGATIVE [facility] Comment on above: Performed By: #### E RUR #### [facility] [address] [place] [address] Dr. Pravin Travis Hemoglobin Ql (U) Negative Normal NEGATIVE [facility] Comment on above: Performed By: #### E RUR #### [facility] [address] [place] [address] Dr. Pravin Travis Ketones Ql (U) Negative Normal NEGATIVE [facility] Comment on above: Performed By: #### E RUR #### [facility] [address] [place] [address] Dr. Pravin Travis LEUKOCYTES Negative Normal NEGATIVE [facility] Comment on above: Performed By: #### E RUR #### [facility] [address] [place] [address] Dr. Pravin Travis Nitrite Ql (U) Negative Normal NEGATIVE [facility] Comment on above: Performed By: #### E RUR #### [facility] [address] [place] [address] Dr. Pravin Travis pH (U) 7.5 [pH] Normal 5-9 [facility] Comment on above: Performed By: #### E RUR #### [facility] [address] [place] [address] Dr. Pravin Travis SPEC GRAVITY 1.015 Normal 1.005-<=1.02 5 [facility] Comment on above: Performed By: #### E RUR #### [facility] [address] [place] [address] Dr. Pravin Travis UA PROTEIN Negative Normal NEGATIVE/ TRACE [facility] Comment on above: Performed By: #### E RUR #### [facility] [address] [place] [address] Dr. Pravin Travis UR MICRO IND NOT INDICATED Normal [facility] Comment on above: Performed By: #### E RUR #### [facility] [address] [place] [address] Dr. Pravin Travis Urobilinogen Qn (U) 0.2 {Katie'U}/dL Normal 0.2 - 1. 0 [facility] Comment on above: Performed By: #### E RUR #### [facility] [address] [place] [address] Dr. Pravin Travis PROF 14(COMP METB)on 022 Albumin [Mass/Vol] 4.3 g/dL Normal 3.4-5.0 [facility] Comment on above: Performed By: #### C MP #### [facility] [address] [place] [address] Dr. Pravin Travis Albumin/Globulin [Mass ratio] 1.3 {ratio} Normal [facility] Comment on above: Performed By: #### C MP #### [facility] [address] [place] [address] Dr. Pravin Travis ALP [Catalytic activity/Vol] 92 U/L Normal 46-116 [facility] Comment on above: Performed By: #### C MP #### [facility] [address] [place] [address] Dr. Pravin Travis ALT [Catalytic activity/Vol] 31 U/L Normal 16-63 [facility] Comment on above: Performed By: #### C MP #### [facility] [address] [place] [address] Dr. Pravin Travis Anion gap [Moles/Vol] 10.9 mmol/L Normal Th [facility] Comment on above: Performed By: #### C MP #### [facility] [address] [place] [address] Dr. Pravin Travis AST [Catalytic activity/Vol] 31 U/L Normal 15-37 [facility] Comment on above: Performed By: #### C MP #### [facility] [address] [place] [address] Dr. Pravin Travis Bilirubin [Mass/Vol] 0.5 mg/dL Normal 0.2-1.0 [facility] Comment on above: Performed By: #### C MP #### [facility] [address] [place] [address] Dr. Pravin Travis Calcium [Mass/Vol] 9.3 mg/dL Normal 8.5-10.1 [facility] Comment on above: Performed By: #### C MP #### [facility] [address] [address] [address] Pravin Travis Chloride [Moles/Vol] 103 mmol/L Normal 98-107 [facility] Comment on above: Performed By: #### C MP #### [facility] [address] [address] [address] Pravin Travis CO2 [Moles/Vol] 29.8 mmol/L Normal 21.0-32.0 [facility] Comment on above: Performed By: #### C MP #### [facility] [address] [address] [address] Pravin Travis Creatinine [Mass/Vol] 1.22 mg/dL Normal 0.70-1.30 [facility] Comment on above: Performed By: #### C MP #### [facility] [address] [address] [address] Pravin Travis EGFR-AF [place] >60 Normal >=60 [facility] Comment on above: Performed By: #### C MP #### [facility] [address] [place] [address] Dr. Pravin Travis EGFR-NON AF [place] >60 Normal >=60 [facility] Comment on above: Performed By: #### C MP #### [facility] [address] [address] [address] Pravin Travis Globulin (S) [Mass/Vol] 3.4 g/dL Normal T [facility] Comment on above: Performed By: #### C MP #### [facility] [address] [address] [address] Pravin Travis Glucose [Mass/Vol] 91 mg/dL Normal 74-106 [facility] Comment on above: Performed By: #### C MP #### [facility] [address] [address] [address] Pravin Travis Potassium [Moles/Vol] 3.7 mmol/L Normal 3.5-5.1 [facility] Comment on above: Performed By: #### C MP #### [facility] [address] [address] [address] Pravin Travis Protein [Mass/Vol] 7.7 g/dL Normal 6.4-8.2 [facility] Comment on above: Performed By: #### C MP #### [facility] [address] [address] [address] Pravin Travis Sodium [Moles/Vol] 140 mmol/L Normal 136-145 [facility] Comment on above: Performed By: #### C MP #### [facility] [address] [address] [address] Pravin Travis Urea nitrogen [Mass/Vol] 11.0 mg/dL Normal 7.0-18.0 [facility] Comment on above: Performed By: #### C MP #### [facility] [address] [address] [address] Pravin Travis Urea nitrogen/Creatinine [Mass ratio] 9.0 mg/mg Normal [facility] Comment on above: Performed By: #### C MP #### [facility] [address] [address] [address] Pravin Travis COVID Quick Testingon 2021 Result Positive [facility] Other COVID Quick Testingon 2020 Result Negative [facility] Other Quick Fluon 08-11-2021 FLUAV Ab CF (S) [Titer] Negative [facility] Other FLUBV Ab CF (S) [Titer] Negative [facility] Other Vital Signs Date Time Vital Sign Value Performing Clinician Facility 03-19-2025 16:30-0400 Diastolic blood pressure 113 mm[Hg] Cisco Furlong DO Work Phone: [facility] 03-19-2025 16:30-0400 Heart rate 76 /min Cisco Furlong DO Work Phone: [facility] 03-19-2025 16:30-0400 Respiratory rate 16 /min Cisco Furlong DO Work Phone: [facility] 03-19-2025 16:30-0400 SaO2% (BldA) [Mass fraction] 97 % Cisco Furlong DO Work Phone: [facility] 03-19-2025 16:30-0400 Systolic blood pressure 143 mm[Hg] Cisco Furlong DO Work Phone: [facility] 03-19-2025 16:00-0400 Body temperature 96.8 [degF] Cisco Furlong DO Work Phone: [facility] 03-19-2025 11:36-0400 Body height 172.72 cm Cisco Furlong DO Work Phone: [facility] 03-19-2025 11:36-0400 Body weight 90.9 kg Cisco Furlong DO Work Phone: [facility] 02-28-2025 12:24-0400 Body height 175.3 cm Lydia Sankovic PA-C Work Phone: [facility] 02-28-2025 12:24-0400 Body mass index (BMI) [Ratio] 29.53 kg/m2 Lydia Sankovic PA-C Work Phone: [facility] 02-28-2025 12:24-0400 Body temperature 97 [degF] Lydia Sankovic PA-C Work Phone: [facility] 02-28-2025 12:24-0400 Body weight 90.72 kg Lydia Sankovic PA-C Work Phone: [facility] 02-28-2025 12:24-0400 Diastolic blood pressure 93 mm[Hg] Lydia Sankovic PA-C Work Phone: [facility] 02-28-2025 12:24-0400 Heart rate 76 /min Lydia Sankovic PA-C Work Phone: [facility] 02-28-2025 12:24-0400 SaO2% (BldA) [Mass fraction] 97 % Lydia Mariebita PA-C Work Phone: [facility] 02-28-2025 12:24-0400 Systolic blood pressure 141 mm[Hg] Lydia Mariebita PA-C Work Phone: [facility] 02-18-2025 13:45-0400 Body height 172.72 cm Cisco Furlong DO Work Phone: [facility] 02-18-2025 13:45-0400 Body mass index (BMI) [Ratio] 28.8 kg/m2 Cisco Furlong DO Work Phone: [facility] 02-18-2025 13:45-0400 Body weight 86.18 kg Cisco Furlong DO Work Phone: [facility] 01-09-2025 12:53-0400 Diastolic blood pressure 109 mm[Hg] Mohamad Mouchli [facility] 01-09-2025 12:53-0400 Mean blood pressure 131 mm[Hg] Mohamad Mouchli [facility] 01-09-2025 12:53-0400 Systolic blood pressure 174 mm[Hg] Mohamad Mouchli [facility] 01-09-2025 12:43-0400 Blood Pressure Location Mohamad Mouchli [facility] 01-09-2025 12:43-0400 Diastolic blood pressure 117 mm[Hg] Mohamad Mouchli [facility] 01-09-2025 12:43-0400 Heart rate 80 /min Mohamad Mouchli [facility] 01-09-2025 12:43-0400 Systolic blood pressure 179 mm[Hg] Mohamad Mouchli [facility] 12-10-2024 13:07-0400 Body height 172.7 cm Cisco Furlong DO Work Phone: [facility] 12-10-2024 13:07-0400 Body mass index (BMI) [Ratio] 29.47 kg/m2 Cisco Furlong DO Work Phone: [facility] 12-10-2024 13:07-0400 Body temperature 98.4 [degF] Cisco Furlong DO Work Phone: [facility] 12-10-2024 13:07-0400 Body weight 87.91 kg Cisco Furlong DO Work Phone: [facility] 12-10-2024 13:07-0400 Diastolic blood pressure 90 mm[Hg] Cisco Furlong DO Work Phone: [facility] 12-10-2024 13:07-0400 Heart rate 102 /min Cisco Furlong DO Work Phone: [facility] 12-10-2024 13:07-0400 Respiratory rate 18 /min Cisco Furlong DO Work Phone: [facility] 12-10-2024 13:07-0400 SaO2% (BldA) [Mass fraction] 97 % Cisco Furlong DO Work Phone: [facility] 12-10-2024 13:07-0400 Systolic blood pressure 140 mm[Hg] Cisco Furlong DO Work Phone: [facility] 09-11-2024 14:23-0500 Body height 172.7 cm Cisco Furlong DO Work Phone: [facility] 09-11-2024 14:23-0500 Body mass index (BMI) [Ratio] 28.89 kg/m2 Cisco Furlong DO Work Phone: [facility] 09-11-2024 14:23-0500 Body temperature 97.9 [degF] Cisco Furlong DO Work Phone: [facility] 09-11-2024 14:23-0500 Body weight 86.18 kg Cisco Furlong DO Work Phone: [facility] 09-11-2024 14:23-0500 Diastolic blood pressure 90 mm[Hg] Cisco Furlong DO Work Phone: [facility] 09-11-2024 14:23-0500 Heart rate 105 /min Cisco Furlong DO Work Phone: [facility] 09-11-2024 14:23-0500 Respiratory rate 20 /min Cisco Furlong DO Work Phone: [facility] 09-11-2024 14:23-0500 SaO2% (BldA) [Mass fraction] 99 % Cisco Furlong DO Work Phone: [facility] 09-11-2024 14:23-0500 Systolic blood pressure 140 mm[Hg] Cisco Furlong DO Work Phone: [facility] 03-15-2024 16:08-0400 Body height 172.7 cm Cisco Furlong DO Work Phone: [facility] 03-15-2024 16:08-0400 Body mass index (BMI) [Ratio] 27.79 kg/m2 Cisco Furlong DO Work Phone: [facility] 03-15-2024 16:08-0400 Body temperature 97.7 [degF] Cisco Furlong DO Work Phone: [facility] 03-15-2024 16:08-0400 Body weight 82.92 kg Cisco Furlong DO Work Phone: [facility] 03-15-2024 16:08-0400 Diastolic blood pressure 70 mm[Hg] Cisco Furlong DO Work Phone: [facility] 03-15-2024 16:08-0400 Heart rate 79 /min Cisco Furlong DO Work Phone: [facility] 03-15-2024 16:08-0400 SaO2% (BldA) [Mass fraction] 97 % Cisco Furlong DO Work Phone: [facility] 03-15-2024 16:08-0400 Systolic blood pressure 120 mm[Hg] Cisco Furlong DO Work Phone: [facility] 03-03-2024 14:00-0400 Diastolic blood pressure 95 mm[Hg] DO Cisco Furlong Work Phone: [facility] 03-03-2024 14:00-0400 Heart rate 79 /min DO Cisco Furlong Work Phone: [facility] 03-03-2024 14:00-0400 Respiratory rate 18 /min DO Cisco Furlong Work Phone: [facility] 03-03-2024 14:00-0400 SaO2% (BldA) [Mass fraction] 95 % DO Cisco Furlong Work Phone: [facility] 03-03-2024 14:00-0400 Systolic blood pressure 147 mm[Hg] DO Icsco Furlong Work Phone: [facility] 03-03-2024 11:20-0400 Body temperature 98.2 [degF] DO Cisco Furlong Work Phone: [facility] 03-03-2024 11:18-0400 Body height 172.72 cm DO Cisco Furlong Work Phone: [facility] 03-03-2024 11:18-0400 Body weight 80.65 kg DO Cisco Furlong Work Phone: [facility] 02-02-2024 11:29-0400 Body temperature 98.6 [degF] Didi Orzech [facility] 02-02-2024 11:29-0400 Diastolic blood pressure 81 mm[Hg] Didi Orzech [facility] 02-02-2024 11:29-0400 Heart rate 77 /min Didi Orzech [facility] 02-02-2024 11:29-0400 Respiratory rate 16 /min Didi Orzech [facility] 02-02-2024 11:29-0400 Systolic blood pressure 136 mm[Hg] Didi Orzech [facility] 01-30-2024 01:11-0400 Heart rate 159 /min DO Cisco Furlong Work Phone: [facility] 01-30-2024 00:30-0400 Respiratory rate 22 /min DO Cisco Furlong Work Phone: [facility] 01-30-2024 00:30-0400 SaO2% (BldA) [Mass fraction] 97 % DO Cisco Furlong Work Phone: [facility] 01-29-2024 23:38-0400 Diastolic blood pressure 95 mm[Hg] DO Cisco Furlong Work Phone: [facility] 01-29-2024 23:38-0400 Systolic blood pressure 136 mm[Hg] DO Cisco Furlong Work Phone: [facility] 01-29-2024 22:45-0400 Body height 172.72 cm DO Cisco Furlong Work Phone: [facility] 01-29-2024 22:45-0400 Body weight 86.2 kg DO Cisco Furlong Work Phone: [facility] 01-29-2024 22:44-0400 Body temperature 98.3 [degF] DO Cisco Bonilla Work Phone: [facility] 12-09-2023 08:47-0400 Body height 172.7 cm Michelle Francis INFORMATION CONSULTANT-CONSTRUCTION TECHNICIAN Work Phone: [facility] 12-09-2023 08:47-0400 Body mass index (BMI) [Ratio] 30.08 kg/m2 Michellenisha Francis INFORMATION CONSULTANT-CONSTRUCTION TECHNICIAN Work Phone: [facility] 12-09-2023 08:47-0400 Body temperature 98.29 [degF] Michelle Francis INFORMATION CONSULTANT-CONSTRUCTION TECHNICIAN Work Phone: [facility] 12-09-2023 08:47-0400 Body weight 89.72 kg Michelle Francis INFORMATION CONSULTANT-CONSTRUCTION TECHNICIAN Work Phone: [facility] 12-09-2023 08:47-0400 Diastolic blood pressure 86 mm[Hg] Michelle Francis INFORMATION CONSULTANT-CONSTRUCTION TECHNICIAN Work Phone: [facility] 12-09-2023 08:47-0400 Heart rate 82 /min Michelle Francis INFORMATION CONSULTANT-CONSTRUCTION TECHNICIAN Work Phone: [facility] 12-09-2023 08:47-0400 Respiratory rate 18 /min Michellenisha Francis INFORMATION CONSULTANT-CONSTRUCTION TECHNICIAN Work Phone: [facility] 12-09-2023 08:47-0400 SaO2% (BldA) [Mass fraction] 96 % Michellenisha Francis INFORMATION CONSULTANT-CONSTRUCTION TECHNICIAN Work Phone: [facility] 12-09-2023 08:47-0400 Systolic blood pressure 120 mm[Hg] Michelle Francis INFORMATION CONSULTANT-CONSTRUCTION TECHNICIAN Work Phone: [facility] 09-01-2021 13:30-0500 Body height 172.72 cm Tawnya Andre Other [facility] Other 09-01-2021 13:30-0500 Body mass index (BMI) [Ratio] 31.93 kg/m2 Tawnya Andre Other [facility] Other 09-01-2021 13:30-0500 Body temperature 97.4 [degF] Tawnya Jes Other [facility] Other 09-01-2021 13:30-0500 Body weight 95.26 kg Tawnya Andre Other [facility] Other 09-01-2021 13:30-0500 Respiratory rate 18 /min Tawnya Andre Other [facility] Other 09-01-2021 13:30-0500 SaO2% (BldA) [Mass fraction] 98 % Tawnya Andre Other [facility] Other 08-11-2021 12:00-0500 Body height 172.72 cm Mary Christine Other [facility] Other 08-11-2021 12:00-0500 Body mass index (BMI) [Ratio] 31.93 kg/m2 Mary King Other [facility] Other 08-11-2021 12:00-0500 Body temperature 96.9 [degF] Mary King Other [facility] Other 08-11-2021 12:00-0500 Body weight 95.26 kg Mary Christine Other [facility] Other 08-11-2021 12:00-0500 Respiratory rate 18 /min Mary King Other [facility] Other 08-11-2021 12:00-0500 SaO2% (BldA) [Mass fraction] 96 % Mary Christine Other [facility] Other Encounters Encounter Date Encounter Type Care Provider Facility Start: 05-16-2025 ambulatory Didi X Orzech Facilit y:[facility] Start: 05-15-2025 ambulatory Vivian Brady Facrosy lity:[facility] Start: 04-23-2025 End: 04-23-2025 ambulatory Vivian Brady Facility:[facility] Start: 04-23-2025 End: 04-23-2025 Patient encounter procedure Vivian Brady [facility] Start: 04-08-2025 End: 04-08-2025 ambulatory Ciscochelsea Carcamoclyde DO Work Phone: [facility] Work Phone: Start: 04-08-2025 End: 04-08-2025 Patient encounter procedure Ehsan Avina DO -[facility] Work Phone: Start: 04-03-2025 End: 04-03-2025 Admission [...] Start: 04-02-2025 End: 04-02-2025 ambulatory LYDIA DRAKE Facility:[facility] Start: 03-22-2025 End: 03-27-2025 Refill Cisco Thomason Carlos Albertoclyde DO Work Phone: [facility] Comment on above: Anxiety Start: 03-19-2025 End: 03-19-2025 Admission to same day surgery center Ehsan Avina DO -[facility] [place] [facility] Start: 03-19-2025 End: 03-19-2025 ambulatory Cisco Furlong DO Work Phone: [facility] Work Phone: Start: 03-18-2025 End: 03-18-2025 Patient encounter procedure Ehsan Avina DO -Pre-Surgical Testing Work Phone: Start: 03-18-2025 End: 03-18-2025 ambulatory Cisco Furlong DO Work Phone: [facility] Work Phone: Start: 03-18-2025 Encounter for preprocedural laboratory examination Ehsan Tillman [facility] Start: 03-13-2025 End: 03-13-2025 ambulatory Cisco Furlong DO Work Phone: [facility] Work Phone: Start: 03-13-2025 End: 03-13-2025 Patient encounter procedure Ehsan Avina DO -[facility] Work Phone: Start: 03-13-2025 End: 03-13-2025 Patient encounter procedure Ehsan Avina -[facility] Start: 03-13-2025 End: 03-13-2025 ambulatory Cisco Furlong DO Work Phone: [facility] Work Phone: Start: 03-12-2025 Non-patient / Non-visit Ehsan alanis DO -[facility] Work Phone: Start: 03-07-2025 [...] Start: 02-28-2025 End: 02-28-2025 ambulatory FELIPE ARIAS Facility:[facility] Start: 02-18-2025 End: 02-18-2025 ambulatory Cisco Furlong DO Work Phone: [facility] Work Phone: Start: 02-18-2025 End: 02-18-2025 Patient encounter procedure Ehsan Avina DO -[facility] Work Phone: Start: 02-11-2025 End: 02-11-2025 Telephone encounter Ashley Hayward MD Work Phone: Colorectal Surgery Comment on above: Appointment (Left vm we received referral for botox injections) Start: 02-06-2025 End: 02-06-2025 Refill Cisco G Furlong DO Work Phone: [facility] Start: 01-28-2025 End: 01-29-2025 Refill Cisco G Furlong DO [facility] Start: 01-26-2025 End: 01-28-2025 Refill Cisco G Furlong DO [facility] Start: 01-24-2025 End: 01-24-2025 ambulatory [facility] Start: 01-24-2025 End: 01-24-2025 Patient encounter procedure Vivian Brady [facility] Start: 01-16-2025 End: 01-16-2025 Transcribe Orders Vivian Brady MD Work Phone: Referring Physician Comment on above: Constipation by outl et dysfunction (Primary Dx); Stress-related physiological response affecting medical condition Start: 01-09-2025 End: 01-09-2025 ambulatory Vivian Brady Facility:[facility] Start: 01-09-2025 End: 01-09-2025 Patient encounter procedure Vivian Brady [facility] Start: 12-31-2024 ambulatory Vivian [facility] Start: 12-31-2024 End: 12-31-2024 Telephone encounter Linda Marc CMA [facility] [...] Refill Cisco Bonilla DO Work Phone: [facility] Internal [facility] Start: 12-10-2024 End: 12-10-2024 ambulatory WESLEY CHAPEL P[facility] Start: 12-10-2024 Encounter for genera l adult medical examination without abnormal findings [facility] Start: 12-10-2024 End: 12-10-2024 Patient encounter status Cisco Bonilla DO Work Phone: [facility] [employer] [facility] Start: 12-10-2024 End: 12-10-2024 Periodic preventive med est patient 40-64yrs Cisco Bonilla DO Work Phone: [facility] Family Medicine Comment on above: Well adult exam (Marilynn lawson Dx); Anxiety; Overweight; Iron overload; Encounter for screening for malignant neoplasm of prostate; Ex-smoker; Hypogonadism in male; Severe episode of recurrent major depressive disorder, without psychotic features (CMS-HCC); Irritable bowel syndrome with both constipation and diarrhea Start: 12-10-2024 End: 12-10-2024 ambulatory [facility] Start: 12-10-2024 Encounter for genera l adult medical examination without abnormal findings [facility] Start: 11-02-2024 End: 11-02-2024 Orders Only Cisco Bonilla DO Work Phone: [facility] Start: 10-15-2024 End: 10-15-2024 Orders Only Cisco Bonilla DO Work Phone: [facility] Start: 09-26-2024 End: 10-03-2024 Telephone [...] DO Work Phone: [facility] Start: 05-15-2024 End: 05-15-2024 [facility] Start: 04-04-2024 End: 04-10-2024 Telephone encounter Cisco Bonilla DO Work Phone: [facility] Start: 04-03-2024 End: 04-03-2024 Patient encounter procedure Didi Allen [facility] Caren Start: 03-16-2024 End: 03-16-2024 Orders [...] Anal fissure Start: 03-15-2024 End: 03-15-2024 ambulatory [facility] Start: 03-14-2024 End: 03-14-2024 Orders Only Cisco Bonilla DO Work Phone: [facility] Start: 03-03-2024 End: 03-03-2024 Emergency department patient visit DO Cisco Bonilla Work Phone: [facility] Work Phone: Start: 02-20-2024 End: 02-20-2024 Orders Only Cisco Bonilla DO Work Phone: [facility] Start: 02-17-2024 End: 02-18-2024 Evaluation and management of inpatient JENNYFER AUGUSTIN [facility] Start: 02-13-2024 End: 02-15-2024 Telephone encounter [...] encounter procedure Didi Allen [facility] Cammie Start: 01-31-2024 End: 02-01-2024 Telephone encounter Barbara De La Torre OUTSIDE SALES PROFESSIONAL [facility] Start: 01-29-2024 End: 01-30-2024 Emergency department patient visit DO Cisco Bonilla Work Phone: [facility] Work Phone: Start: 12-09-2023 End: 12-09-2023 Office outpatient visit 15 minutes Michelle Francis APRN-[facility] Work Phone: [facility] Comment on above: Irritable bowel synd chaitanya with constipation (Primary Dx); Gastroesophageal reflux disease, unspecified whether esophagitis present; 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 ([facility]) Start: 03-26-2022 End: 03-26-[address] CISCO BONILLA Facility: Start: 09-01-2021 End: 09-01-2021 ambulatory Tawnya Andre Other [facility] Other Start: 09-01-2021 Office outpatient vi sit 15 minutes Tawnya Andre [facility] Start: 08-11-2021 End: 08-11-2021 ambulatory Mary King Other [facility] Other Start: 08-11-2021 Office outpatient vi sit 15 minutes Mary King [facility] Start: 08-30-2016 End: 08-31-2016 Ambulatory [facility] Facility:[facility] Procedures Date Procedure Procedure Detail Performing Clinician Start: 03-19-2025 Open reduction of fr acture with internal fixation Cisco Bonilla DO Work Phone: Start: 03-19-2025 X-ray of right foot Den chelsea Bonilla DO Work Phone: Start: 03-13-2025 X-ray of right foot Den chelsea Bonilla DO Work Phone: Start: 02-28-2025 ADULT [place] [facility] Violette Maurer INFORMATION CONSULTANT.CONSTRUCTION TECHNICIAN Work Phone: Start: 12-10-2024 Adult depression scr [...] Adult depression scr eening assessment Michelle Francis INFORMATION CONSULTANT-CONSTRUCTION TECHNICIAN Work Phone: Appendectomy Didi T[facility] Plan of Treatment Date Care Activity Detail Author Start: 02-16-2034 Screening for malign ant neoplasm of colon Colon[facility] Start: 12-10-2029 Lipid panel Lipid Screening [facility] Start: 12-10-2029 Prostate specific antigen measurement Prostate Cancer Screening Discussion [facility] Start: 12-11-2027 Diabetes Screening Diabetes Screenin [facility] Start: 12-10-2025 Administration of varicella zoster vaccine Zoster (Shingles) Vaccine (1 of 2) [employer] [facility] Comment on above: Postponed from 09/04 (Patient Refused) Start: 12-10-2025 Adult BMI Screening Adult BMI Screen ing [facility] Start: 12-10-2025 COVID-19 Vaccine ( season) COVID-19 Vaccine ( season) [facility] Comment on above: Postponed from 04/22 (Patient Refused) Start: 12-10-2025 Depression Screening Depression Scre ening [facility] Start: 12-10-2025 Tobacco Screening Tobacco Screening [facility] Start: 09-11-2025 Adult BMI Screening Adult BMI Screen ing [facility] Start: 09-11-2025 Tobacco Screening Tobacco Screening [facility] Start: 04-22-2025 Influenza vaccination P [facility] Start: 04-02-2025 End: 04-02-2025 Admission to same day surgery center 04/02/2025 11:30 AM EDT [facility] Colorectal Surgery [address] [place] [address] Lydia Drake, PA-C [address] [place] [address] f/u Colorectal Surgery Comment on above: f/u Start: 03-28-2025 End: 03-28-2025 Patient encounter procedure 03/28/2025 1:30 PM EDT OT/PT/Speech Visit [facility] [address] [place], [place] [id number] Belkys Smith, PT, DPT tightness in my rectum, anus i cant push out poop [facility] Comment on above: tightness in my rect um, anus i cant push out poop Start: 03-19-2025 [facility] Start: 03-19-2025 X-ray of right foot XR foot RT 2V [facility] Start: 03-19-2025 XR Foot - right 2 Views [facility] Start: 03-18-2025 [facility] Start: 03-15-2025 End: 03-15-2025 Admission to same day surgery center 03/15/2025 4:30 PM EDT [facility] Colorectal Surgery [address] [address] George Navarrete DO [address] [place], [place] [id number] [facility] Colorectal Surgery Comment on above: [facility] Start: 03-15-2025 Adult BMI Screening Adult BMI Screen ing [facility] Start: 03-15-2025 Depression Screening Depression Scre ening [facility] Start: 03-15-2025 Tobacco Screening Tobacco Screening [facility] Start: 03-13-2025 X-ray of right foot XR foot RT min 3 V* [facility] Start: 03-13-2025 XR Foot - right GE 3 Views [facility] Start: 02-21-2025 End: 02-21-2025 Patient encounter procedure 02/21/2025 10:30 AM EDT Office Visit General Surgery [address] [address] Jey Kapadia MD [address] [id number] Consult Botox Injection General Surgery Comment on above: Consult Botox Inject ion Start: 02-16-2025 Adult BMI Screening Adult BMI Screen ing [facility] Start: 02-16-2025 Screening for malign ant neoplasm of colon [facility] Start: 02-16-2025 Tobacco Screening Tobacco Screening [facility] Start: 02-05-2025 Tobacco Screening Tobacco Screening [facility] Start: 12-10-2024 End: 12-10-2025 CT Chest for screening WO contrast CT low dose lung screening (Annual) Imaging Routine Ex-smoker Expected: 12/10/2024, Expires: 12/10/2025 [facility] Comment on above: Expected: 12/10/2024 , Expires: 12/10/2025 Start: 12-10-2024 End: 12-10-2024 Patient encounter procedure 12/10/2024 1:00 PM EDT Office Visit [facility] [address] [place] [address] Cisco Bonilla, DO [address] [place] [address] [facility] Start: 12-08-2024 Adult BMI Screening Adult BMI Screen ing [facility] Start: 12-08-2024 Depression Screening Depression Scre ening [facility] Start: 12-08-2024 Tobacco Screening Tobacco Screening [facility] Start: 09-26-2024 End: 09-26-2024 Patient encounter procedure 09/26/2024 2:00 PM EST Office Visit [facility] [address] [facility] [address] [place] [id number] Aníbal Will DO [address] [facility] [place] [address] [facility] Start: 06-04-2024 End: 06-04-2024 Patient encounter procedure 06/04/2024 2:15 PM EDT Office Visit [facility] [address] [place] [place] [address] Cisco Bonilla DO [address], [facility] [place] [address] [facility] Start: 04-22-2024 Covid-19 Vaccine ( season) Covid-19 Vaccine ( season) [facility] Start: 04-22-2024 COVID-19 Vaccine ( season) COVID-19 Vaccine ( season) [facility] Start: 04-22-2024 Influenza vaccination Influenza Vacc ine [facility] Start: 03-15-2024 End: 03-15-2024 Patient encounter procedure 03/15/2024 3:45 PM EDT Office Visit [facility] [address] [place] [address] Cisco Bonilla, DO [address], [place] [address] [facility] Start: 02-18-2024 Adult BMI Screening Adult BMI Screen ing [facility] Start: 02-18-2024 Depression Screening Depression Scre ening [facility] Start: 02-18-2024 Tobacco Screening Tobacco Screening [facility] Start: 02-17-2024 End: 02-17-2024 Admission to same day surgery center 02/17/2024 2:30 PM EDT - 02/17/2024 3:30 PM EDT Surgery [facility] - Endoscopy [address] [facility] [place] [phone] Jennyfer Augustin, DO [address] [place] [address] COLONOSCOPY DIAGNOSTIC / SCREENING [00164 (CPT )] [facility] - Endoscopy Comment on above: COLONOSCOPY DIAGNOST IC / SCREENING [18903 (CPT )] Start: 02-17-2024 End: 02-17-2024 Colonoscopy flx dx w/collj spec when pfrmd COLONOSCOPY DIAGNOSTIC / SCREENING change in bowel habits 02/17/2024 2:30 PM EDT [facility] Start: 02-17-2024 Subsequent hospital visit by physician 02/17/2024 2:30 PM EDT Hospital Encounter [facility] [address] [place] [phone] Jennyfer Augustin, DO [address] [place] [address] Change in bowel habits (Primary Dx) [facility] Comment on above: Change in bowel habi ts (Primary Dx) Start: 02-16-2024 End: 02-16-2024 ambulatory 02/16/2024 3:50 PM EDT Support Visit [facility] - Pre Admit [address] [place] [address] [facility] - Pre Ad[facility] Start: 01-29-2024 CT Abdomen and Pelvi s WO contrast [facility] Start: 01-29-2024 CT of abdomen and pe lvis without contrast CT abdomen pelvis wo con [facility] Start: 10-28-2023 DTaP,Tdap and Td Vaccines (2 - Td or Tdap) DTaP,Tdap and Td Vaccines (2 - Td or Tdap) [facility] Start: 10-28-2023 Urine microalbumin profile DTaP,Tdap,Td Vaccine (2 - Td or Tdap) [facility] Start: 04-22-2023 COVID-19 Vaccine ( season) COVID-19 Vaccine ( season) [facility] Start: 2018 Administration of varicella zoster vaccine Zoster (Shingles) Vaccine (1 of 2) [facility] Start: 2018 Pneumococcal Vaccine : 50+ (1 of 1 - PCV) Pneumococcal Vaccine: 50+ (1 of 1 - PCV) [facility] Start: 2018 Shingrix Vaccine (1 of 2) Shingrix Vaccine (1 of 2) [facility] Start: 2013 Diabetes Screening Diabetes Screenin g [facility] Start: 2013 Prostate specific antigen measurement Prostate Cancer Screening Discussion [facility] Start: 2013 Screening for malign ant neoplasm of colon [facility] Start: 2003 Lipid panel Lipid Screening [facility] Start: 1987 Hepatitis B Vaccine (1 of 3 - 19+ 3-dose series) Hepatitis B Vaccine (1 of 3 - 19+ 3-dose series) [facility] Start: 1987 Pneumococcal Vaccine : 50+ (1 of 2 - PCV) Pneumococcal Vaccine: 50+ (1 of 2 - PCV) [facility] Start: 1987 Shingrix Vaccine (1 of 2) Shingrix Vaccine (1 of 2) [facility] Start: 1987 Urine microalbumin profile DTaP,Tdap,Td Vaccine (1 - Tdap) [facility] Start: 1986 Adult BMI Follow Up Plan Adult BMI Follow Up Plan [facility] Start: 1986 Anxiety Screening Anxiety Screening [facility] Start: 1986 Depression Screening Depression Scre ening [facility] Start: 1986 Hepatitis C screening Hepatitis C Sc juan josé [facility] Start: 1986 HIV screening HIV Screening [facility] End: 09-11-2025 CBC panel - Blood by Automated count CBC Lab Routine Irritable bowel syndrome with both constipation and diarrhea Essential hypertension, benign 1 Occurrences starting 09/11/2024 until 09/11/2025 [facility] Comment on above: 1 Occurrences starti ng 09/11/2024 until 09/11/2025 End: 12-10-2025 CBC panel - Blood by Automated count CBC without diff Lab Routine Hypogonadism in male 1 Occurrences starting 12/10/2024 until 12/10/2025 [facility] Comment on above: 1 Occurrences starti ng 12/10/2024 until 12/10/2025 End: 02-04-2025 Colonoscopy Colonoscopy GI Routine Change in bowel habits Polyp of colon, unspecified part of colon, unspecified type 1 Occurrences starting 02/05/2024 until 02/04/2025 [employer] Work Phone: Comment on above: 1 Occurrences starti ng 02/05/2024 until 02/04/2025 Colonoscopy flx dx w/collj spec when pfrmd COLONOSCOPY DIAGNOSTIC / SCREENING Change in bowel habits [facility] End: 09-11-2025 Comprehensive metabolic 2000 panel - Serum or Plasma Comprehensive metabolic panel Lab Routine Essential hypertension, benign 1 Occurrences starting 09/11/2024 until 09/11/2025 [facility] Comment on above: 1 Occurrences starti ng 09/11/2024 until 09/11/2025 End: 12-10-2025 Comprehensive metabolic 2000 panel - Serum or Plasma Comprehensive metabolic panel Lab Routine Well adult exam 1 Occurrences starting 12/10/2024 until 12/10/2025 [employer] Work Phone: Comment on above: 1 Occurrences starti ng 12/10/2024 until 12/10/2025 End: 12-10-2025 Iron [Mass/volume] in Serum or Plasma Iron level Lab Routine Iron overload 1 Occurrences starting 12/10/2024 until 12/10/2025 [facility] Comment on above: 1 Occurrences starti ng 12/10/2024 until 12/10/2025 End: 12-10-2025 Lipid 1996 panel - Serum or Plasma Lipid profile Lab Routine Well adult exam 1 Occurrences starting 12/10/2024 until 12/10/2025 [facility] Comment on above: 1 Occurrences starti ng 12/10/2024 until 12/10/2025 Patient Education [facility] Work Phone: Patient referral [facility] Work Phone: End: 09-11-2025 Prostatic specific antigen screen Prostatic specific antigen screen Lab Routine Encounter for screening for malignant neoplasm of prostate 1 Occurrences starting 09/11/2024 until 09/11/2025 [facility] Comment on above: 1 Occurrences starti ng 09/11/2024 until 09/11/2025 End: 12-10-2025 Prostatic specific antigen screen Prostatic specific antigen screen Lab Routine Encounter for screening for malignant neoplasm of prostate 1 Occurrences starting 12/10/2024 until 12/10/2025 [facility] Comment on above: 1 Occurrences starti ng 12/10/2024 until 12/10/2025 End: 09-11-2025 TSH with Reflex TSH with Reflex Lab Routine Irritable bowel syndrome with both constipation and diarrhea Essential hypertension, benign Anxiety 1 Occurrences starting 09/11/2024 until 09/11/2025 [employer] Work Phone: Comment on above: 1 Occurrences starti ng 09/11/2024 until 09/11/2025 End: 12-10-2025 TSH with Reflex TSH with Reflex Lab Routine Anxiety Overweight 1 Occurrences starting 12/10/2024 until 12/10/2025 [facility] Comment on above: 1 Occurrences starti ng 12/10/2024 until 12/10/2025 XR Foot - right GE 3 Views [facility] Immunizations Immunization Date Immunization Notes Care Provider Dorene au 06-20-2021 influenza virus vaccine, unspecified formulation Michelle Francis APRN-[facility]IDA Work Phone: [facility] 06-20-2021 influenza, injectabl e, quadrivalent, preservative free Michelle Tito INFORMATION CONSULTANT-CONSTRUCTION TECHNICIAN Work Phone: [facility] 06-20-2021 SARS-CoV-2 (COVID-19 ) mRNA BNT-162h3 vax Didi Orzech [facility] 12-08-2020 SARS-CoV-2 (COVID-19 ) mRNA BNT-162d1 vax Didi Orzech [facility] 11-18-2020 SARS-CoV-2 (COVID-19 ) mRNA BNT-162t6 vax Didi Orzech [facility] 04-06-2020 influenza virus vaccine, unspecified formulation Didi Orzech [facility] 04-06-2020 influenza, injectabl e, quadrivalent, preservative free Michelle Tito INFORMATION CONSULTANT-CONSTRUCTION TECHNICIAN Work Phone: [facility] 06-07-2019 influenza virus vaccine, unspecified formulation Didi Orzech [facility] 06-07-2019 influenza, injectabl e, quadrivalent, preservative free Michelle Tito INFORMATION CONSULTANT-CONSTRUCTION TECHNICIAN Work Phone: [facility] 10-27-2013 tetanus toxoid, redu brock diphtheria toxoid, and acellular pertussis vaccine, adsorbed Michelle Tito INFORMATION CONSULTANT-CONSTRUCTION TECHNICIAN Work Phone: [facility] Payers Date Payer Category Payer Self-pay [id number] 2024 Medicaid [id number] 2024 Medicaid [id number] 1968 Unknown [id number] 1968 Unknown [id number] 1968 Unknown [id number] 1968 Unknown [id number] 1968 Unknown [id number] 1970 Unknown [id number] [id number] 1970 Unknown [id number] 2.16.840.1.441051.3.579.2.1285 1970 Unknown [id number] 2.16.840.1.454227.3.579.2.1285 1970 Unknown [id number] 2.16.840.1.853686.3.579.2.1285 1968 Unknown [id number] 2.16.840.1.630061.3.579.2. 1968 Unknown [id number] 2.16.840.1.554864.3.579.2. 1968 Unknown [id number] 2.16.840.1.105564.3.579.2. 1968 Unknown [id number] 2.16.840.1.118559.3.579.2.7 1968 Unknown [id number] [id number] 1961 Private Health Insurance [id number] Medicaid [id number] Unknown [id number] 2.1 [id number] Unknown Wilver CRANDALL/TONYA [id number] Unknown [id number] [id number] Unknown [id number] 2.16.840.1.569868.3.579.2.531 Unknown [id number] [id number] Social History Date Type Detail Facility Unknown if ever smoked [facility] Other Start: 09-11-2024 End: 02-28-2025 Sex Assigned At [facility] Start: 07-23-1985 End: 03-03-2024 Tobacco smoking status NHIS Smoker (finding) [facility] Start: 1970 Sex Assigned At Male [facility] Start: 02-02-2024 End: 01-24-2025 Tobacco smoking status Ex-smoker (finding) [facility] Start: 11-11-2015 Tobacco smoking status Never [facility] Start: 07-23-1985 End: 12-20-2018 History of tobacco use Cigarette Smoker [facility] Start: 12-09-2023 End: 02-28-2025 Cigarettes smoked current (pack per day) - Reported 1 [facility] History of tobacco use Passive smoker [facility] Start: 12-09-2023 Tobacco use and exposure Smokeless tobacco non-user [facility] Start: 09-11-2024 End: 12-10-2024 Alcoholic beverage intake Current drinker of alcohol (finding) [facility] Has the [employer], [address], or water [employer] threatened to shut off services in your home in past 12Mo Yes [facility] Are you now , , , , never or living with a partner? Never [facility] How often to you hav e a drink containing alcohol? Monthly or less [facility] How often do you hav e 6 or more drinks on 1 occasion? Less than monthly [facility] How hard is it for y ou to pay for the very basics like food, housing, medical care, and heating Very hard [facility] Do you feel stress - tense, restless, nervous, or anxious, or unable to sleep at night because your mind is troubled all the time - these days [OSQ] Very much [facility] Start: 08-01-2022 Education 14 [facility] Start: 08-04-2022 Tobacco Comment vape, today [facility] Start: 10-12-2019 Alcohol Comment Occasional [facility] Start: 1970 Sex assigned at Not on file [facility] Start: 03-27-2015 Sex Male (finding) [facility] How many standard drinks containing alcohol do you have on a typical day? 10 or more [facility] Sexual Orientation [facility] Tobacco smoking stat [facility] Tobacco smoking consumption unknown [facility] Start: 03-03-2024 End: 03-19-2025 Tobacco smoking status INIS Smokes tobacco daily (finding) [facility] Start: 03-07-2025 Gender identity Identifies as male gender (finding) [facility] Start: 03-07-2025 Sexual orientation Heterosexual (finding) [facility] Medical Equipment Procedure Code Equipment Code Equipment Origin al Text Equipment Identifier Dates ORIF, fracture, wrist Orthopaedic bone screw (non-sliding) ()[id number] [facility] Start: 03-19-2025 Goals Date Patient Goal Desired Activity /State Personal health goal Comment on above: Formatting of this n ote might be different from the original. Evaluation of progress towards goal: with support from friends and family, patient needs to fllow up with [facility] Functional Status Date Assessment Result Facility 01-09-2025 Functional Status N/A [facility] 02-02-2024 Functional Status N/A [facility] Clinical Notes 08-11-2021 to 04-03-2025 Lydia Drake PA-C - 04/03/2025 8:29 AM EDLydia Rivers PA-C - 04/02/2025 11:30 AM EDTTelephone Encounter - yLdia Drake PA-C - 03/07/2025 1:37 PM EDTPatient Instructions Note Date & Type Note Facility 04-03-2025 Note HNO ID: [id number] Author: LYDIA DRAKE PA-C Service: ? Author Type: Physician Textile Colorist [place] Type: Progress Notes Filed: 04/03/2025 08:41 Note [...] Anticipated surgical procedure: none Lydia Drake PA-C [facility] 04-03-2025 History of Presen t [...] Lydia Drake PA-C documented in this encounter [facility] 04-02-2025 History of Presen t illness Narrative COLORECTAL SURGERY VIRTUAL VISIT FOLLOW UP 04/02/2025 I have communicated my name and active licensure. The patient's identity and physical location were verified at the time of this visit. Either the patient or their legal screening representative has been informed of the risks [...] February 28, 2025. He was referred to [facility] for anorectal manometry by Dr. Brady [...] laxatives and stool softeners; consider referral to [facility] if unable to see local GI anymore ( was told that [facility] would be managing him from [...] evaluate and manage orthostatic symptoms. Recording using StayNTouch software for draft documentation of the visit was discussed with the patient/authorized screening representative; all questions welcomed and answered. Patient/authorized screening representative agreed to proceed Lydia Drake PA-C [facility] I spent a total of 33 minutes on the date of the service which included preparing to see the patient, [id number] patient care, completing clinical documentation, obtaining and/or reviewing separately obtained history, performing a medically appropriate examination, counseling and educating the patient/family/caregiver, communicating with other HCPs (not separately reported), and care coordination (not separately reported). documented in this encounter [facility] 04-02-2025 Note HNO ID: [id number] Author: LYDIA DRAKE PA-C Service: ? Author Type: Physician Textile Colorist Dyer Type: Progress Notes Filed: 04/02/2025 12:17 Note Text: COLORECTAL SURGERY VIRTUAL VISIT FOLLOW UP 04/02/2025 I have communicated my name and active licensure. The patient's identity and physical location were verified at the time of this visit. Either the patient or their legal screening representative has been informed of the risks [...] February 28, 2025. He was referred to [facility] for anorectal manometry by Dr. Brady [...] trials of Trulanc (more content not included)... [facility] 03-07-2025 Telephone encounter Note Called [...] ED with worsening sx. Lydia Drake PA-C [facility] 03-07-2025 Miscellaneous Notes Called patient back. [...] Lydia Drake PA-C Chai Barr [place] - [phone] Patient contacted the office regarding the baclofen that was prescribed to him. He reported that his back is feeling tighter than before and believes that a taking all these different medications may be causing this side effect. Unsure on what he should do. documented in this encounter [facility] 03-07-2025 Telephone encounter Note Chai Barr [place] - [phone] Patient contacted the office regarding the baclofen that was prescribed to him. He reported that his back is feeling tighter than before and believes that a taking all these different medications may be causing this side effect. Unsure on what he should do. [facility] 02-28-2025 Instructions Lydia Drake PA-C - 02/28/2025 1:31 PM EDT We discussed your chronic constipation and pelvic floor dysfunction: - I recommend starting baclofen suppositories, a muscle relaxer, to help with spasms and pain. Use one suppository as needed, up to twice daily. This prescription has been sent to [facility] in [place]. - Begin pelvic floor physical therapy to [...] for you. To make an appointment through [facility] call : [phone] If you are not close to a [facility] location, you can visit any one of these sites. Just put your zip code in and Pelvic Floor Physical Therapy places near you will populate. - [email or web address] - [email or web address] - [email or web address] - [email or web address] documented in this encounter [facility] 02-28-2025 History and physical note PELVIC [...] a compounded preparation from a pharmacy in [place], and previously used hydrocortisone. He has not [...] Weak - Relaxation on pushing: Minimal - Inside Parts Sales Present: Yes Inside Parts Sales present: Yes, [place] Assessment Anorectal Physiology tests reviewed at today's [...] which included preparing to see the patient, [id number] patient care, completing clinical documentation, obtaining and/or reviewing separately obtained history, performing a medically appropriate examination, counseling and educating the patient/family/caregiver, ordering medications, tests, or procedures, communicating with other HCPs (not separately reported), independently interpreting results (not separately reported), and communicating results to the patient/family/caregiver. Recording using StayNTouch software for draft documentation of the visit was discussed with the patient/authorized screening representative; all questions welcomed and answered. Patient/authorized screening representative agreed to proceed [facility] 02-28-2025 History and physical note PELVIC [...] a compounded preparation from a pharmacy in [place], and previously used hydrocortisone. He has not [...] Weak - Relaxation on pushing: Minimal - Inside Parts Sales Present: Yes Inside [employer] Sales present: Yes, [place]ella Assessment Anorectal Physiology tests [...] which included preparing to see the patient, [id number] patient care, completing clinical documentation, obtaining and/or reviewing separately obtained history, performing a medically appropriate examination, counseling and educating the patient/family/caregiver, ordering medications, tests, or procedures, communicating with other HCPs (not separately reported), independently interpreting results (not separately reported), and communicating results to the patient/family/caregiver. Recording using StayNTouch software for draft documentation of the visit was discussed with the patient/authorized screening representative; all questions welcomed and answered. Patient/authorized screening representative agreed to proceed documented in this encounter [facility] 02-18-2025 Evaluation note Diagnosis Onset Date Resolution Fracture of fifth metatarsal bone of right foot acute February 18, 2025 1:30pm Fracture of fifth metatarsal bone of right foot acute March 13, 2025 3:11pm [facility] Work Phone: 1(236) 140-111406-30-2025 Evaluation note* Diagnosis Onset Date Resolution Status Admit Date Fracture of fifth metatarsal bone of right foot acute February 18 1:30pm Fracture of fifth metatarsal bone of right foot acute March 13 3:11pm Fracture of fifth metatarsal bone of right foot acute April 08, 2025 9:12am Other specified postprocedur al states noneactive April 08 9:12am [facility] Work Phone: 1(634) 703-112706-23-2025 Telephone encounter Note* Telephone Encounter - Chelle Christianson - 02/11/2025 9:38 AM EDT Recevied referral from Satish Blackwood fot pt referral for botox injections [facility]06-23-2025 Miscellaneous Notes* Telephone Encounter - Chelle Christianson - 02/11/2025 9:38 AM EDT Recevied referral from Satish [facility] fot pt referral for botox injections [facility] Miscellaneous Notes* Telephone Encounter - Linda Marc CMA - 12/31/2024 9:34 AM EDT I called and left message for pt to call back. Regarding his referral to Gastroenterology. George Kieran is retired. * Telephone Encounter - Barbara De La Torre CMA - 12/31/2024 9:34 AM EDT Can we send referral to Dr. Moreno in [place] documented [facility] Telephone encounter Note* Telephone Encounter - Linda Marc CMA - 12/31/2024 9:34 AM EDT I called and left message for pt to call back. Regarding his referral to Gastroenterology. George Alcaraz is retired. [facility]05-12-2025 Telephone encounter Note* Telephone Encounter - Barbara De La Torre CMA - 12/31/2024 9:34 AM EDT Can we send referral to Dr. Moreno in [place] [facility]04-28-2025 Miscellaneous Notes* Telephone Encounter - Barbara De La Torre CMA - 12/17/2024 3:24 PM EDT Patient called and stated he missed his apt in [place] with jaylyn/ent so they will not see him anymore. Can you refer him to someone else. * Telephone Encounter - Cisco Bonilla DO - 12/17/2024 3:24 PM EDT Okay. I sent another referral this time to a shift supervisor melting in [place] -Dr. Alcaraz. If he can [...] usually routine to do. documented in this [facility] Telephone encounter Note* Telephone Encounter - Barbara De La Torre CMA - 12/17/2024 3:24 PM EDT Patient called and stated he missed his apt in [place] with jaylyn/ent so they will not see him anymore. Can you refer him to someone else. [facility]04-28-2025 Telephone encounter Note* Telephone Encounter - Cisco Bonilla DO - 12/17/2024 3:24 PM EDT Okay. I sent another referral this time to a shift supervisor melting in [place] Alcaraz. If he can not [...] treatment which is usually routine to do. [facility]04-21-2025 History of Present illness Narrative* Cisco [...] reveal any inflammatory bowel disease. Thegastroenterologist in [place] did not want to see him. He [...] appear clear Nose: Nose normal. Mouth/Throat: Lips: [place]. Mouth: Mucous membranes are moist. Dentition: Abnormal [...] and irritable bowel syndrome. documented in this [facility]03-14-2025 History of Present illness Narrative* Cisco Bonilla DO - 11/02/2024 1:58 PM EDT FORM FOR TOBACCO STEMMER MACHINE FILLED OUT documented in this encounterBrec[facility] Miscellaneous Notes* Telephone Encounter - Marisa Reinoso - 09/26/2024 2:19 PM EST New Patient NS 09/26/2024 * Telephone Encounter - Suki Islas RN - 09/26/2024 2:19 PM EST Discharge entered documented in this encounterB[facility] Telephone encounter Note* Telephone Encounter - Marisa Reinoso - 09/26/2024 2:19 PM EST New Patient NS 09/26/2024 [facility]02-05-2025 Telephone encounter Note* Telephone Encounter - Suki Islas RN - 09/26/2024 2:19 PM EST Discharge entered [facility]01-22-2025 Miscellaneous Notes* Telephone Encounter - Betty Wild - 09/12/2024 2:21 PM EST [facility] Dr augustin did his [facility]. He wants him to see patrizia as a specialist instead. Alok words patrizia started it that is who he needs to follow up with explained to [facility] office that he does not specialize in that field that he is a primary care and theysaid that it does not matter Ditty will not see him. Can we please get him a referral to a different gastro. Also [facility] Nurse Danuta was rude and getting [...] [facility] documented in this encounterB[facility] Telephone encounter Note* Telephone Encounter - Betty Wild - 09/12/2024 2:21 PM EST [facility] office is refusing to [...] why we referred him to a specialist [facility]01-22-2025 Telephone encounter Note* Telephone Encounter - Betty Perlitaevelina - 09/12/2024 2:21 PM EST Can we get this as an urgent referral [facility]01-22-2025 Telephone encounter Note* Telephone Encounter - Cisco Bonilla DO - 09/12/2024 2:21 PM EST Send a referral to GI specialist at [facility]01-22-2025 Miscellaneous Notes* Telephone Encounter - [facility] Perlitaevelina - 09/12/2024 1:47 PM EST Patient called, metamucil is not covered by insurance but they will cover benifiber 240g [facility] [place] documented in this encounterBrec[facility]ville [facility]01-[facility] Telephone encounter Note* Telephone Encounter - Bettygeorge Wild - 09/12/2024 1:47 PM EST Patient called, metamucil is not covered by insurance but they will cover benifiber 240g [facility] [place] [facility]01-21-2025 History of Present illness Narrative* Cisco [...] have an appointment coming up with a shift supervisor melting in September. He had to cancel his last appointment because he was having diarrhea and was afraid to leave the house because he might have an accident. The ER did give him Bentyl which did help. He did not think that less than helped at all. He stopped the FiberCon because it was not helping. He would rather have Metamucil. He called the shift supervisor melting office and they suggested a cleaned out. [...] Exam Vitals reviewed. Exam conducted with a testing specialist present (Leilani Emely MS 3). Constitutional: General: [...] mouth in the morning. documented in this encounterBrec[facility]ville [facility]08-[facility]24 Miscellaneous Notes* Telephone Encounter - Betty Wild - 04/04/2024 10:24 AM EDT ----- Message from Dr. Cisco Bonilla DO sent at 03/15/2024 7:03 PM EDT ----- Regarding: GI/BP recheck Please set up * Telephone Encounter - Betty Wild - 04/04/2024 10:24 AM EDT Mailbox full * Telephone Encounter - Betty Wild - 04/04/2024 10:24 AM EDT Scheduled documented in this [facility]08-14-2024 Telephone encounter Note* Telephone Encounter - Bettygeorge Wild - 04/04/2024 10:24 AM EDT ----- Message from Dr. Cisco Bonilla DO sent at 03/15/2024 7:03 PM EDT ----- Regarding: GI/BP recheck Please set up [facility]08-14-2024 Telephone encounter Note* Telephone Encounter - Bettygeorge Wild - 04/04/2024 10:24 AM EDT Mailbox full [facility]08-14-2024 Telephone encounter Note* Telephone Encounter - Bettygeorge Wild - 04/04/2024 10:24 AM EDT Scheduled [facility]07-25-2024 History of Present illness Narrative* Cisco [...] was getting liquidy stools-6 and 7 on [place] stool scale. He used fiber supplement in [...] needed for pain (cramping). documented in this encounterBrec[facility]ville [facility]06-24-2024 Miscellaneous Notes* Telephone Encounter - Betty [...] GoLYTELY sent to pharmacy documented in this encounterBrecksville [facility]06-24-2024 Telephone encounter Note* Telephone Encounter - Betty Wild - 02/13/2024 12:02 PM EDT Patient said suflave is 130 dollars, is there something else he can try or a coupon to use [facility]06-24-2024 Telephone encounter Note* Telephone Encounter - Linda Marc CMA - 02/13/2024 12:02 PM EDT Pt has medicaid My Bad Please SEND in the SUPREP. . [facility]06-24-2024 Telephone encounter Note* Telephone Encounter - Jennyfer Augustin DO - 02/13/2024 12:02 PM EDT Message noted. The only prep that is covered is the old fashioned Golytely prep [facility]06-24-2024 Telephone encounter Note* Telephone Encounter - Gloria Rodriguez CMA - 02/13/2024 12:02 PM EDT He is Medicaid so whatever his insurance covers [facility]06-24-2024 Telephone encounter Note* Telephone Encounter - Jennyfer Augustin DO - 02/13/2024 12:02 PM EDT Message noted. Rx for GoLYTELY sent to pharmacy [facility]06-11-2024 Miscellaneous Notes* Telephone Encounter - Barbara [...] EDT Left message via documented in this encounterBrecksville [facility]06-11-2024 Telephone encounter Note* Telephone Encounter - Barbara De La Torre CMA - 01/31/2024 3:09 PM EDT Patient called and was in the ER for Urinary re tension. His bowel movements ar still not good. Since I can not get him in for an ER follow up soon what do you suggest he do? He does see urology on [facility]06-11-2024 Telephone encounter Note* Telephone Encounter - Cisco Bonilla DO - 01/31/2024 3:09 PM EDT He can use MiraLax 17 g in 8 oz of water daily [facility]06-11-2024 Telephone encounter Note* Telephone Encounter - Barbara De La Torre CMA - 01/31/2024 3:09 PM EDT Left message via VM [facility]04-19-2024 History of Present illness Narrative* SYLVESTER Levin - 12/09/2023 9:00 AM EDT [address] [facility] [id number] Patient: Chai Arnold Date of : 1970 [...] softeners pencilthin like a 4. On the [place] stool scale and he has tried Metamucil and MiraLax. He denies any hemorrhoids or blood in his stool. His last colonoscopy was 4 years ago that showed polyps and diverticulosis and he knows he is due for another colonoscopy next year. Patient has been struggling with weaning off his Xanax. He was seeing an online provider through [place] who is prescribing this for him and [...] whether esophagitis present 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 ([facility]) Past Medical, Family, and Social History Update: The following portions of the patient's history were reviewed and updated as appropriate: allergies, current medications, past family history, past medical history, past social history, past surgicalhistory and problem list. 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 Resources such as Suboxone Clinic in [place] were given. It was also recommended that he apply at [facility] for primary care services and psychiatric [...] LEVIN APRN-CNP 12/09/23 1230 documented in this encounterBrec[facility]ville [facility]01-11-2022 Evaluation note* Encounter Date Diagnosis Assessment [...] Patient care instructions given in writting by [facility] document. [facility] Other 12-21-2021 Evaluation note* Encounter Date Diagnosis [...] Patient care instructions given in writting by [facility] document. [facility] Other Evaluation + Plan note Future Appointments Appointment Date:04/03/2024 01:00:00 PM Scheduled Provider:JOSEPH Allen APRN, Didi Martin Location:[facility] Appointment Type:URO Office Visit [facility] Evaluation + Plan note Future Appointments Appointment Date:04/11/2025 10:45:00 AM Scheduled Provider:Caitlyn CHAVIS, Vivian Lance Location:[facility] Appointment Type[facility] Follow Up [facility] evaluation noteNo assessment information available [facility] Work Phone: evaluation note* Diagnosis Irritable bowel syndrome with both constipation and diarrhea- Primary Essential hypertension, benign Anxiety Anxiety state, unspecified Encounter for screening for malignant neoplasm of prostate documented in this [facility] Diagnosis Irritable bowel syndrome with both constipation and diarrhea- Primary documented in this encounter [facility] Diagnosis Irritable bowel syndrome with constipation- Primary Irritable bowel syndrome Gastroesophageal reflux disease, unspecified whether esophagitis present 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 ([facility]) documented [facility] this [facility] gangrene Anal fissure [facility] Diagnosis Well adult exam- Primary [...] constipation and diarrhea [facility] Diagnosis Anal fissure- Primary [facility] Diagnosis Irritable bowel syndrome with both constipation and diarrhea- Primary [facility] Diagnosis Chronic idiopathic constipation- Primary Unspecified constipation Hepatitis C virus infection without hepatic coma, unspecified chronicity [facility]* Diagnosis 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 Outlet dysfunction constipation Stress-related physiological response affecting medical condition Psychic factors associated with diseases classified elsewhere [facility] Diagnosis Onset Date Resolution Status Admit Date Fracture of fifth metatarsal bone of right foot acute February 18, 2025 1:30pm [facility] Work Phone: Evaluation note* Diagnosis Pelvic floor dysfunction Pelvic muscle wasting Pelvic floor dysfunction- Primary Pelvic muscle wasting Rectal spasm Anal spasm Constipation, unspecified constipation type documented in this encounter [facility] note* Diagnosis Pelvic floor dysfunction- Primary Pelvic muscle wasting Rectal spasm Anal spasm Constipation, unspecified constipation type [facility] Diagnosis Anxiety Anxiety state, unspecified [facility] Diagnosis Constipation, unspecified constipation type- Primary Rectal spasm Anal spasm Pelvic floor dysfunction Pelvic muscle wasting Anxiety Anxiety state, unspecified Distressed about housing issues Other specified housing or economic circumstances Orthostatic dizziness [facility] Diagnosis Rectal spasm- Primary Anal spasm Constipation, unspecified constipation type Pelvic floor dysfunction Pelvic muscle wasting Anxiety Anxiety state, unspecified Chronic abdominal pain Abdominal pain, unspecified site Chronic rectal pain Anal or rectal pain documented in this encounter [facility] general Narrative - Reported* Type Description Date Medical History insomnia Medical History anxiety Medical History HTN Surgical History appendix removed Surgical History compartment syndrome left hand 2016 Hospitalization History see surgical hx [employer] [facility] [employer] Other Hospital course Narrative No data available for this section [facility] Hospital Discharge instructions Additional Instructions Wear leg bag with [place] catheter [facility] with [facility]rology [facility] are [facility] Work Phone: Hospital Discharge instructions No data available for this section [facility] Hospital Discharge instructions Additional Instructions Dr. [...] wearing your boot. You may take NSAIDs/Tylenol [id number] as indicated on the bottle. You should [...] be scheduled with Dr. Avina's office at [facility]. At your follow-up we will remove your splint and sutures. Please call to confirm your follow-up appointment. Dr. Ehsan Avina [facility] [address] [place] [address] [phone] Work Phone: Instructions* Attachments The following attachments cannot be sent through Care Everywhere. * IBS Diet (Lao) documented in [facility]ructionsNot on file documented in this encounterPro[facility] [...] for this section [facility] Reason for referral (narrative)* Medication Prior Authorization - Pending Review Specialty Diagnoses / Procedures Referred By Contac t Referred To Contact Cisco Bonilla DO [address] [facility] [address] Phone: tel: fax: Referral ID Status Reason Start Date Expiration Date V isits Requested Visits Authorized [id number] Pending Review 1 1 [facility] SystemReason for referral (narrative)* Medication Prior Authorization - Pending Review Specialty Diagnoses / Procedures Referred By Hung t Referred To Contact Cisco Bonilla DO [address] [facility] [address] Phone: tel: fax: Referral ID Status Reason Start Date Expiration Date V isits Requested Visits Authorized [id number] Pending Review 1 1 [facility] Doc[facility] SystemReason for referral (narrative)* Medication Prior Authorization - Pending Review Specialty Diagnoses / Procedures Referred By Hung almanzar Referred To Contact Cisco Bonilla DO [address] [facility] [place] [address] Phone: tel: fax: Referral ID Status Reason Start Date Expiration Date V isits Requested Visits Authorized [id number] Pending Review 1 1 [facility] for referral (narrative)No reason for referral [facility] Work Phone: Summary Purpose Family History [...] To Contact Cisco Bonilla, DO [address] [facility] [address] Referral ID Status Reason Start Date Expiration Date V isits Requested Visits Authorized [id number] Pending Review 03/14/2024 03/14/2025 1 1 Specialty Diagnoses / Procedures Referred By Contac t Referred To Contact Diagnoses Change in bowel habits Polyp of colon, unspecified part of colon, unspecified type Procedures Colonoscopy Cisco Bonilla, DO [address], [place] [address] Referral ID Status Reason Start Date Expiration Date V isits Requested Visits Authorized [id number] Pending Review 02/05/2024 02/04/2025 1 1 Additional Source Comments (unrecognized sect ion and content) No Status Records FoundNo Status Records FoundNo Status Records FoundNo Status Records FoundNo Status Records FoundNo Status Records FoundNo Status Records FoundNo Status Records Found INFORMATION SOURCE (unrecogn ized section and content) DATE CREATED AUTHOR 02/14/2018 [facility] DATE CREATED AUTHOR AUTHOR'S ORGANIZ ATION 03/29/2022 [facility] DATE CREATED AUTHOR AUTHOR'S ORGANIZ ATION 05/18/2024 [facility] DATE CREATED AUTHOR AUTHOR'S ORGANIZ ATION 12/10/2024 [facility] DATE CREATED AUTHOR AUTHOR'S ORGANIZ ATION 12/11/2024 [facility] DATE CREATED AUTHOR AUTHOR'S ORGANIZ ATION 03/31/2025 [facility] DATE CREATED AUTHOR AUTHOR'S ORGANIZ ATION 04/03/2025 [facility] DATE CREATED AUTHOR AUTHOR'S ORGANIZ ATION 05/09/2025 [facility] REASON FOR VISIT (unrecogniz ed section [...] [place] [facility] ANORECTAL MANOMETRY Violette Maurer APRN.CONSTRUCTION TECHNICIAN [address] [place] [address] Phone: tel: fax: [facility] [address] [place] [address] Referral ID Status Reason Start Date Expiration Date V isits Requested Visits Authorized [id number] Closed Auto-Generate d Referral 02/21/2025 08/21/2025 1 1 Reason Comments New Patient Pelvic floor dysfunc tion Specialty Diagnoses / Procedures Referred By Contac t Referred To Contact [facility] Diagnoses Pelvic floor dysfunction Procedures [facility] ANORECTAL MANOMETRY ANORECTAL MANOMETRY Violette Maurer APRN.CONSTRUCTION TECHNICIAN [address] [place] [address] Phone: tel: fax: [facility] [address] [place] [address] Referral ID Status Reason Start Date Expiration Date V isits Requested Visits Authorized [id number] Closed Auto-Generate d Referral 02/21/2025 08/21/2025 1 [...] March 03, 2024 End: March 03, 2024 Pattern Maker Programer Relationship Specialty Start Date End Date Cisco Bonilla DO [address] [place] [place] [address] PCP - General Family Medicine 12/19/19 Pattern Maker Programer Relationship Specialty Start Date End Date Cisco Bonilla DO [address] [place] [address] PCP - General Family Medicine 12/19/19 Pattern Maker Programer Relationship Specialty Start Date End Date Cisco Bonilla DO [address], [place] [address] PCP - General Family Medicine 12/19/19 Pattern Maker Programer Relationship Specialty Start Date End Date Carlos AlbertolindenCisco cao DO [address], [place] [address] PCP - General Family Medicine 12/19/19 Pattern Maker Programer Relationship Specialty Start Date End Date GerardoCisco cao [address], [place] [address] PCP - General Family Medicine 12/19/19 Pattern Maker Programer Relationship Specialty Start Date End Date Carlos AlbertolindenCisco cao [address], [place] [address] PCP - General Family Medicine 12/19/19 Pattern Maker Programer Relationship Specialty Start Date End Date Carlos AlbertolindenCisco cao [address] [place] [address] PCP - General Family Medicine 12/19/19 Pattern Maker Programer Relationship Specialty Start Date End Date Carlos AlbertolindenCisco cao [address] [place] [address] PCP - General Family Medicine 12/19/19 Pattern Maker Programer Relationship Specialty Start Date End Date Carlos AlbertolindenCisco cao [address] [place] [address] PCP - General Family Medicine 12/19/19 Pattern Maker Programer Relationship Specialty Start Date End Date Cisco Bonilla DO [address], [place] [address] PCP - General Family Medicine 12/19/19 Pattern Maker Programer Relationship Specialty Start Date End Date Carlos AlbertolindenCisco cao DO [address], [place] [address] PCP - General Family Medicine 12/19/19 Pattern Maker Programer Relationship Specialty Start Date End Date Carlos AlbertolindenCisco cao DO [address], [place] [address] PCP - General Family Medicine 12/19/19 Pattern Maker Programer Relationship Specialty Start Date End Date Carlos AlbertolindenCisco cao DO [address], [place] [address] PCP - General Family Medicine 12/19/19 Pattern Maker Programer Relationship Specialty Start Date End Date Carlos AlbertolindenCisco cao DO [address], [place] [address] PCP - General Family Medicine 12/19/19 Pattern Maker Programer Relationship Specialty Start Date End Date Carlos AlbertolindenCisco cao DO [address], [place] [address] PCP - General Family Medicine 12/19/19 Pattern Maker Programer Relationship Specialty Start Date End Date Carlos AlbertolindenCisco cao DO [address], [place] [address] PCP - General Family Medicine 12/19/19 Pattern Maker Programer Relationship Specialty Start Date End Date Cisco Bonilla DO [address], [place] [address] PCP - General Family Medicine 12/19/19 Pattern Maker Programer Relationship Specialty Start Date End Date Cisco Bonilla DO [address], [place] [address] PCP - General Family Medicine 12/19/19 Pattern Maker Programer Relationship Specialty Start Date End Date Tyson Tolliver MD PCP - General Family Medicine 11/11/15 Vivian Brady MD [address] [address] Gastroenterology 01/16/25 Pattern Maker Programer Relationship Specialty Start Date End Date Cisco Bonilla DO [address], [place] [address] PCP - General Family Medicine 12/19/19 Pattern Maker Programer Relationship Specialty Start Date End Date Tyson Tolliver MD PCP - General Family Medicine 11/11/15 Vivian Brady MD [address] [address] Gastroenterology 01/16/25 Team Status: Inactive Member Role Status Dates Cisco Bonilla DO Primary Care Provider Active Start: February 18, 2025 End: February 18, 2025 Ehsan Avina DO Attending Provider Active S tart: February 18, 2025 End: February 18, 2025 Pattern Maker Programer Relationship Specialty Start Date End Date Tyson Tolliver MD PCP - General Family Medicine 11/11/15 Vivian Brady MD [address] [address] Gastroenterology 01/16/25 Pattern Maker Programer Relationship Specialty Start Date End Date Tyson Tolliver MD PCP - General Family Medicine 11/11/15 Vivian Brady MD [address] [place] [phone] Gastroenterology 01/16/25 Pattern Maker Programer Relationship Specialty Start Date End Date Tyson Tolliver MD PCP - General Family Medicine 11/11/15 Vivian Brady MD [address] [address] Gastroenterology 01/16/25 Pattern Maker Programer Relationship Specialty Start Date End Date Tyson Tolliver MD PCP - General Family Medicine 11/11/15 Vivian Brady MD [address] [address] Gastroenterology 01/16/25 Team Status: Active Member Role [...] March 19, 2025 End: March 19, 2025 Pattern Maker Programer Relationship Specialty Start Date End Date Cisco Bonilla DO [address] [facility] [address] PCP - General Family Medicine 12/19/19 Pattern Maker Programer Relationship Specialty Start Date End Date Tyson Tolliver MD PCP - General Family Medicine 11/11/15 Vivian Brady MD [address] [place] [address] Gastroenterology 01/16/25 Pattern Maker Programer Relationship Specialty Start Date End Date Tyson Tolliver MD PCP - General Family Medicine 11/11/15 Vivian Brady MD [address] [address] Gastroenterology 01/16/25 Pattern Maker Programer Relationship Specialty Start Date End Date Tyson Tolliver MD PCP - General Family Medicine 11/11/15 Vivian Brady MD [address] [address] Gastroenterology 01/16/25 Team Status: Inactive Member Role [...] prosecute any alcohol or drug abuse patient.[facility] HospitalIn the event this information is protected by the Federal Confidentiality of Alcohol and Drug Abuse Patient Records regulations: The Federal rules restrict any use of the information to criminally investigate or prosecute any alcohol or drug abuse patient.[facility] HospitalIn the event this information is protected by the Federal Confidentiality of Alcohol and Drug Abuse Patient Records regulations: The Federal rules restrict any use of the information to criminally investigate or prosecute any alcohol or drug abuse patient.[facility] HospitalIn the event this information is protected by the Federal Confidentiality of Alcohol and Drug Abuse Patient Records regulations: The Federal rules restrict any use of the information to criminally investigate or prosecute any alcohol or drug abuse patient.[facility] HospitalIn the event this information is protected by the Federal Confidentiality of Alcohol and Drug Abuse Patient Records regulations: The Federal rules restrict any use of the information to criminally investigate or prosecute any alcohol or drug abuse patient.[facility] HospitalIn the event this information is protected by the Federal Confidentiality of Alcohol and Drug Abuse Patient Records regulations: The Federal rules restrict any use of the information to criminally investigate or prosecute any alcohol or drug abuse patient.[facility] HospitalIn the event this information is protected by the Federal Confidentiality of Alcohol and Drug Abuse Patient Records regulations: The Federal rules restrict any use of the information to criminally investigate or prosecute any alcohol or drug abuse patient.[facility] HospitalIn the event this information is protected by the Federal Confidentiality of Alcohol and Drug Abuse Patient Records regulations: The Federal rules restrict any use of the information to criminally investigate or prosecute any alcohol or drug abuse patient.[facility] HospitalIn the event this information is protected [...] BE BASED ON THE PRIMARY CLINICAL RECORDS. [facility]. provides no warranty or guarantee of the accuracy or completeness of information in this document.
--- OUTSIDE RECORDS SUMMARY | 2025-05-10 01:46 | XMS_ITS | Encounter Summary ---
Author Organization [employer] tem Address [id number] [address] [place] [address] Care Team Providers Care Tellers Supervisor Name Role Phone Cisco Blanc DO Primary Care Provider [phone] Reason for Visit * Reason Comments Med Refill Encounter Details Date Type Department Care Team (Late st Contact Info) Description 02/15/2023 Refill [facility] - Family Medicine [address] [place] [address] Cisco Blanc DO [address], [facility] [place] [address] Social History Tobacco Use Types Packs/Day Years [...] How often do you attend catholic or catholic serv ices? Never 08/01/2022 Active Member [...] Answer Date Recorded Total Score 0 02/17/2023 [facility] - Occupational Stress [...] documented as of this encounter Care Teams Tellers Supervisor Relationship Specialty Start Date End Date Cisco Blanc DO [address], [facility] [place] [address] PCP - General Family Medicine 12/19/19 documented as of this encounter
--- OUTSIDE RECORDS SUMMARY | 2025-05-10 01:46 | XMS_ITS | Encounter Summary ---
Author Organization [employer] tem Address [id number] [address] [place] [address] Care Team Providers Care Opticianry Teacher Name Role Phone Cisco Blanc Primary Care Provider Encounter Details Date Type Department Care Team (Late st Contact Info) Description 03/19/2024 Orders Only [facility] - Family Medicine [address] [place] [phone] Ty Burciaga DO [address] [place] [address] Rectal fissure (Primary Dx) Social History Tobacco [...] week 08/01/2022 How often do you attend judaism or sikh serv ices? Never 08/01/2022 Active Member of [...] Recorded Total Score 21 03/15/2024 [facility] of Occupat ional Health - [...] documented as of this encounter Care Teams Opticianry Teacher Relationship Specialty Start Date End Date Cisco Blanc DO [address] [facility], [place] [address] PCP - General Family Medicine 12/19/19 documented as of this encounter
--- OUTSIDE RECORDS SUMMARY | 2025-05-10 01:46 | XMS_ITS | Clinical Summary ---
Author Organization [facility] Healthcare Address [address] [place] [address] Care Team Providers Care Painter Plate Name Role Phone Unavailable Primary Care Provider [...]
--- OUTSIDE RECORDS SUMMARY | 2025-05-10 01:46 | XMS_ITS | Encounter Summary ---
Author Organization [employer] tem Address [id number] [address] [place] [address] Care Team Providers Care Grinding Room Supervisor Name Role Phone Cisco Blanc Primary Care Provider Encounter Details Date Type Department Care Team (Late st Contact Info) Description 04/03/2024 Orders Only [facility] - Family Medicine [address] [place] [address] Ref Prov, [place] [address] Social History Tobacco Use Types Packs/Day Years [...] How often do you attend zoroastrianism or restorationism serv ices? Never 08/01/2022 Active [...] Answer Date Recorded Total Score 21 03/15/2024 [facility] of Occupat [facility] - Occupational Stress Questionnaire Answer Date [...] you need help finding a [facility] and/or a training [...] family, patient needs to fllow up with [facility] documented as of this encounter [...] documented as of this encounter Care Teams Grinding Room Supervisor Relationship Specialty Start Date End Date Cisco Blanc DO [address] [facility], [place] [address] PCP - General Family Medicine 12/19/19 documented as of this encounter
--- OUTSIDE RECORDS SUMMARY | 2025-05-10 01:46 | XMS_ITS | Encounter Summary ---
Author Organization [employer] Address [id number] [address] [place] [address] Care Team Providers Care Regulatory Affairs Analyst Name Role Phone Cisco Blanc Primary Care Provider Encounter Details Date Type Department Care Team (Late st Contact Info) Description 05/30/2024 Orders Only [facility] - Family Medicine [address] [place] [address] Ref Prov, [place] [address] Social History Tobacco Use Types Packs/Day Years [...] How often do you attend zoroastrianism or denominational serv ices? Never 08/01/2022 Active [...] [facility] Questionnaire Answer Date [...] Recorded Do you need help finding a [facility] career [facility] and/or a training [...] documented as of this encounter Care Teams Regulatory Affairs Analyst Relationship Specialty Start Date End Date Cisco Blanc DO [address], [place] [address] PCP - General Family Medicine 12/19/19 documented as of this encounter
--- OUTSIDE RECORDS SUMMARY | 2025-05-10 01:46 | XMS_ITS | Clinical Summary ---
Demographics Address [address] [place] [address] Home Phone Mobile Phone Email Address Preferred Language en Marital Status Single Hindu Affiliation Unknown Race White Ethnic Group Not or Lati no Author Organization [facility] Address [address] [place] [address] Care Team Providers Care Java Analyst Name Role Phone Unavailable Primary Care Provider [...]
--- OUTSIDE RECORDS SUMMARY | 2025-05-10 01:46 | XMS_ITS | Encounter Summary ---
Author Organization [employer] tem Address [id number] [address] [place] [address] Care Team Providers Care Heating Operators Engineer Name Role Phone Cisco Blanc Primary Care Provider Encounter Details Date Type Department Care Team (Late st Contact Info) Description 05/07/2024 Orders Only [facility] - Family Medicine [address] [place] [address] Ref Prov, [place] [address] Social History Tobacco Use Types Packs/Day Years [...] Date Recorded Total Score 21 03/15/2024 [facility] of Occupat [facility] - Occupational Stress Questionnaire Answer [...] Do you need help finding a [facility] and/or a training [...] to fllow up with [facility] documented as of [...] documented as of this encounter Care Teams Heating Operators Engineer Relationship Specialty Start Date End Date Cisco Blanc DO [address] [facility], [place] [address] PCP - General Family Medicine 12/19/19 documented as of this encounter
--- OUTSIDE RECORDS SUMMARY | 2025-05-10 01:46 | XMS_ITS | Encounter Summary ---
Author Organization [employer] tem Address [id number] [address] [place] [address] Care Team Providers Care Communications Administrator Name Role Phone Cisco Blanc Primary Care Provider Encounter Details Date Type Department Care Team (Late st Contact Info) Description 03/30/2023 Orders Only [facility] Internal [facility] - Family Medicine [address] [place] [address] Ref Prov, [place] [address] Social History Tobacco Use Types Packs/Day Years [...] How often do you attend confucianism or protestant serv ices? Never 08/01/2022 Active [...] Answer Date Recorded Total Score 0 02/17/2023 [facility] of Occupat ional Health - [...] family, patient needs to fllow up with [facility] upon Dc documented as of this encounter Visit Diagnoses Not on filedocumented in this encounter Additional Health Concerns Assessment Noted Time PHQ-9 Depression Total Score: 0 02/18/20 23 3:23 PM EDT documented as of this encounter Care Teams Communications Administrator Relationship Specialty Start Date End Date Cisco Blanc DO [address], [facility] [place] [address] PCP - General Family Medicine 12/19/19 documented as of this encounter
--- OUTSIDE RECORDS SUMMARY | 2025-05-10 01:46 | XMS_ITS | Encounter Summary ---
Author Organization [employer] tem Address [id number] [address] [place] [address] Care Team Providers Care Mechanical Maintenance Instructor Name Role Phone Cisco Blanc DO Primary Care Provider [phone] Reason for Visit * Reason Comments Med Refill Encounter Details Date Type Department Care Team (Late st Contact Info) Description 06/18/2022 Refill [facility] Internal Medicine - Family Medicine [address] [place] [address] Cisco Blanc DO [address], [facility] [place] [address] Social History Tobacco Use Types Packs/Day Years [...] up with [facility]c documented as of this encounter Visit Diagnoses Not on filedocumented in this encounter Care Teams Mechanical Maintenance Instructor Relationship Specialty Start Date End Date Cisco Blanc DO [address] [facility], [place] [address] PCP - General Family Medicine 12/19/19 documented as of this encounter
[2025-05-10] MEDS: DIAZEPAM 10 MG/2 ML SYRINGE 5 MG IV (02:11)
[2025-05-10 02:12] LABS: Hematocrit 43.0 % (42.0-54.0); Hemoglobin 15.6 g/dL (14.0-18.0); Immature Granulocytes Abs Auto 0.03 10^3/uL (0.00-0.03); Immature Granulocytes Pct Auto 0.4 % (0.0-0.5); Lymphocytes Absolute Auto 1.0 10^3/uL (1.2-3.8); Mean Corpuscular HGB Conc 36.3 g/dL (29.9-35.2); Mean Corpuscular Hemoglobin 32.6 pg (25.9-34.0); Mean Corpuscular Volume 90.0 fL (80.0-94.0); Platelet Count 220 10^3/uL (150-450); Red Blood Count 4.78 10^6/uL (4.70-6.10); White Blood Count 8.3 10^3/uL (4.0-11.0)
[2025-05-10 02:27] LABS: Alanine Aminotransferase 39 U/L (16-63); Albumin Globulin Ratio 1.2; Albumin Level 4.1 g/dL (3.4-5.0); Alkaline Phosphatase 125 U/L (46-116); Anion Gap 20.1; Aspartate Amino Transferase 35 U/L (15-37); Blood Urea Nitrogen 10.0 mg/dL (7.0-18.0); Calcium 8.9 mg/dL (8.5-10.1); Carbon Dioxide 19.4 mmol/L (21.0-32.0); Chloride 104 mmol/L (98-107); Estimated GFR (African America >60 (>=60 mL/min/1.73m^2); Estimated GFR (Non-African Ame >60 (>=60 mL/min/1.73m^2); Globulin 3.3 g/dL; Glucose 94 mg/dL (74-106); Potassium 3.5 mmol/L (3.5-5.1); Sodium 140 mmol/L (136-145); Total Protein 7.4 g/dL (6.4-8.2)
--- NOTE | 2025-05-10 02:45 | ED.GENADUL1 ---
HPI HPI - General Adult General Chief complaint: Abdominal Pain Stated complaint: Abdominal Pain Time Seen by Provider: 05/10/25 01:53 Source: patient Mode of arrival: ambulance History of Present Illness HPI narrative: Patient is a 54-year-old male presenting to the emergency department for concerns of abdominal pain and diarrhea. Patient states she has had numerous episodes of diarrhea throughout the day today. He states he has been dealing with chronic GI symptoms like this for the last few months and has seen numerous specialist for it. States he is nauseous, but has had no episodes of vomiting. He currently has a [place] catheter in place for urinary retention, and has had no issues with this. He denies fevers or chills. No chest pain or shortness of breath. Related Data Home Medications ?Medication ?Instructions ?Recorded ?Confirmed baclofen (bulk) 100 % powder ea miscellaneous 05/10/25 clonidine HCl 0.1 mg tablet mg 05/10/25 Previous Rx's ?Medication ?Instructions ?Recorded ondansetron 4 mg disintegrating 4 mg PO Q6H PRN nausea and 05/06/24 tablet vomiting #12 tabs ciprofloxacin HCl 500 mg tablet 500 mg PO Q12H #20 tabs 05/07/25 (Cipro) metronidazole 500 mg tablet 500 mg PO TID #30 tabs 05/07/25 ondansetron 4 mg disintegrating 4 mg PO Q6H PRN nausea and 05/07/25 tablet vomiting #20 tabs Allergies Allergy/AdvReac Type Severity Reaction Status Date / Time No Known Drug Allergies Allergy Verified 05/10/25 01:50 Opioid HPI Opioid Management Most Recent Opioid Data: Last Pain Scale 8 05/09/25, 17:13 Last MAR Pain Assessment 05/08/25, 01:29 Ur Phencyclidine Scrn, (NEGATIVE) Negative 05/06/24, 15:20 Review of Systems ROS Status of ROS 10 or more systems reviewed and unremarkable except as noted in history and below PFSH PFSH Social History Little interest or pleasure in doing things: not at all Feeling down, depressed, or hopeless: not at all Exam Narrative Exam Narrative: CONSTITUTIONAL: Patient is extremely anxious, hyperventilating, answering questions and following commands appropriately SKIN: Was warm and dry. EYES: Sclerae white. EARS, NOSE, THROAT: Moist oral mucosa. RESPIRATORY: Clear to auscultation bilaterally, no wheezes, crackles, or stridor, no use of accessory muscles CARDIOVASCULAR: Normal rate and regular rhythm. There is no S3, S4, murmur, rub. GASTROINTESTINAL: Abdomen is generally tender to palpation without rebound tenderness or guarding. No peritoneal signs. Non-distended. MUSCULOSKELETAL: No peripheral edema. NEUROLOGIC: Patient is awake and alert. Facies were symmetrical. Constitutional Vital Signs, click to edit/add: Last Vital Signs Temp 98.4 F 05/10/25 01:40 Pulse 89 05/10/25 02:54 Resp 18 05/10/25 02:54 BP 158/93 H 05/10/25 02:53 Pulse Ox 100 05/10/25 02:54 O2 Del Method Room Air 05/10/25 02:54 Course Vital Signs Vital signs: Vital Signs Temperature 98.4 F 05/10/25 01:40 Pulse Rate 103 H 05/10/25 01:40 Respiratory Rate 22 H 05/10/25 01:40 Blood Pressure 170/111 H 05/10/25 01:40 Pulse Oximetry 100 05/10/25 01:40 Oxygen Delivery Method Room Air 05/10/25 01:40 Temperature 98.4 F 05/10/25 01:40 Pulse Rate 89 05/10/25 02:54 Respiratory Rate 18 05/10/25 02:54 Blood Pressure 158/93 H 05/10/25 02:53 Pulse Oximetry 100 05/10/25 02:54 Oxygen Delivery Method Room Air 05/10/25 02:54 Medical Decision Making MDM Narrative Medical decision making narrative: Patient is a 54-year-old male presenting to the emergency department with generalized abdominal pain and diarrhea, which is chronic, but worsening over the last 24 hours. The patient has been seen here in the emergency department 6 times in the last 3 days for similar complaints. He was diagnosed with uncomplicated diverticulitis a few days ago, and has been on ciprofloxacin and metronidazole for treatment of this. His vital signs arrival during this visit were significant for hypertension, tachycardia, and tachypnea, likely related to his acute pain and anxiety/hyperventilation. This abdomen is diffusely tender to palpation without peritoneal signs. Differential diagnosis includes worsening diverticular disease, constipation, partial SBO, or other intra-abdominal pathologies. IV was established and laboratory studies were obtained. CT abdomen/pelvis with IV contrast was ordered. He was given 4 mg IV Zofran and 5 mg IV Valium for his acute anxiety attack. Laboratory studies were unremarkable. No significant electrolyte or metabolic derangement. No evidence of acute kidney injury. No anemia, leukocytosis, or thrombocytopenia. No transaminitis or hyperbilirubinemia. CT abdomen/pelvis independently reviewed and interpreted by myself and radiology demonstrated no acute intra-abdominal pelvic abnormality. On reevaluation, patient states he feels improved. His vital signs have normalized. I do believe the patient is stable for discharge at this time. They were instructed to follow up with his PCP for further. Return precautions were given including any new or worsening symptoms. Patient understands and agrees to the plan. FINAL IMPRESSION: #Acute diarrhea, resolved DISPOSITION: Discharged home CONDITION: Good Medical Records Medical records reviewed: Yes I reviewed the patient's medical records Lab Data Lab results reviewed: Yes I reviewed the patient's lab results Labs: Lab Results 05/10/25 Range/Units 01:52 WBC 8.3 (4.0-11.0) 10^3/uL RBC 4.78 (4.70-6.10) 10^6/uL Hgb 15.6 (14.0-18.0) g/dL Hct 43.0 (42.0-54.0) % MCV 90.0 (80.0-94.0) fL MCH 32.6 (25.9-34.0) pg MCHC 36.3 H (29.9-35.2) g/dL RDW 11.5 (11.0-15.0) % Plt Count 220 (150-450) 10^3/uL MPV 10.4 (9.5-13.5) fL Neut % (Auto) 77.3 H (43.0-75.0) % Lymph % (Auto) 12.3 L (20.5-60.0) % [place] % (Auto) 8.3 (1.7-12.0) % Eos % (Auto) 1.2 (0.9-7.0) % Baso % (Auto) 0.5 (0.2-2.0) % Neut # (Auto) 6.4 (1.4-6.5) 10^3/uL Lymph # (Auto) 1.0 L (1.2-3.8) 10^3/uL [place] # (Auto) 0.7 (0.3-0.8) 10^3/uL Eos # (Auto) 0.1 (0.0-0.7) 10^3/uL Baso # (Auto) 0.0 (0.0-0.1) 10^3/uL Abs Immat Gran (auto) 0.03 (0.00-0.03) 10^3/uL Imm/Tot Granulo (auto) 0.4 (0.0-0.5) % Sodium 140 (136-145) mmol/L Potassium 3.5 (3.5-5.1) mmol/L Chloride 104 (98-107) mmol/L Carbon Dioxide 19.4 L (21.0-32.0) mmol/L Anion Gap 20.1 BUN 10.0 (7.0-18.0) mg/dL Creatinine 1.02 (0.70-1.30) mg/dL Est GFR ( Amer) >60 (>=60 mL/min/1.73m^2) Est GFR (Non-Af Amer) >60 (>=60 mL/min/1.73m^2) BUN/Creatinine Ratio 9.8 Glucose 94 (74-106) mg/dL Calcium 8.9 (8.5-10.1) mg/dL Total Bilirubin 0.8 (0.2-1.0) mg/dL AST 35 (15-37) U/L ALT 39 (16-63) U/L Alkaline Phosphatase 125 H (46-116) U/L Total Protein 7.4 (6.4-8.2) g/dL Albumin 4.1 (3.4-5.0) g/dL Globulin 3.3 g/dL Albumin/Globulin Ratio 1.[address] scan - abdomen: Attestation: I personally reviewed and interpreted this imaging study as follows: Discharge Plan Discharge Chief Complaint: Abdominal Pain Clinical Impression: Diarrhea Patient Disposition: Home, Self-Care Time of Disposition Decision: 04:22 Condition: Good Mode of Transportation: Private Vehicle Prescriptions / Home Meds: No Action metronidazole 500 mg tablet 500 mg PO TID Qty: 30 0RF ciprofloxacin HCl [Cipro] 500 mg tablet 500 mg PO Q12H Qty: 20 0RF ondansetron 4 mg tablet,disintegrating 4 mg PO Q6H PRN (Reason: nausea and vomiting) Qty: 20 0RF clonidine HCl 0.1 mg tablet baclofen (bulk) 100 % powder MISCELLANEOUS ondansetron 4 mg tablet,disintegrating 4 mg PO Q6H PRN (Reason: nausea and vomiting) Qty: 12 0RF Print Language: Georgian Instructions: Acute Diarrhea (ED) Referrals: MELY BONILLA [Primary Care Provider, Family Practice] - 1 week
[2025-05-10 02:53] VITALS: BP 158/93
[2025-05-10 02:54] VITALS: PULSE 89; O2SAT 100
== END 2025-05-10 05:05 | disposition home or self-care (01) ==
PROVIDERS: Emergency Provider Student in an Organized Health Care Education/Training Program; PCP Family Medicine
DX: R19.7 Diarrhea, unspecified (principal); R10.9 Unspecified abdominal pain; F41.9 Anxiety disorder, unspecified
CPT/HCPCS: 36415; 74177; 80053; 85025; 96374; 96375; 99285; J2405; J3360; Q9967

== ENCOUNTER 2025-05-14 08:24 | Emergency (ER) | payer OTHER, SELFPAY ==
[2025-05-14 08:38] VITALS: BP 153/100; PULSE 116; TEMP 36.7; O2SAT 96; BMI 25.8
--- OUTSIDE RECORDS SUMMARY | 2025-05-14 09:07 | XMS_ITS | Encounter Summary ---
Demographics Address [address] [facility] [place] [address] Home Phone Mobile Phone Email Address Email Address Preferred Language ENG Marital Status Single Christianity Affiliation Unknown Race White Ethnic Group or Author Organization [facility] Address [facility] [place] [address] Care Team Providers Care Weigher Packing Name Role Phone Tyson Fonseca MD Primary Care Provider Vivian Brady MD Unavailable Source Comments In the event this information is protected by the Federal Confidentiality of Alcohol and Drug AbusePatient Records regulations: The Federal rules restrict any use of the information to criminally investigate or prosecute any alcohol or drug abuse patient.[facility] Encounter Details Date Type Department Care Team (Late st Contact Info) Description 03/08/2025 Abstract Colorectal Surgery [address] [address] Suma Navarrete DO [address] [place] [address] Social History Tobacco Use Types Packs/Day Years Used Date Smoking Tobacco: Never Assessed Area Deprivation Index Answer Date Juan Carlos rded National Score (1-100), lower number is lower ri sk 93 02/28/2025 State Score (1-10), lower number is lower risk 9 02/28/2025 Data from: https://www.neighborhoodatlas.medicine.[facility].edu/. Last address used for calculation [address] [...] on filedocumented in this encounter Care Teams Weigher Packing Relationship Specialty Start Date End Date Tyson Fonseca MD PCP - General Family Medicine 11/11/15 Vivian Brady MD [address] [address] Gastroenterology 01/16/25 documented as of this encounter
--- OUTSIDE RECORDS SUMMARY | 2025-05-14 09:07 | XMS_ITS | Clinical Summary ---
Author Organization [facility] Address [address] [place] [address], [address] [place] [address] Care Team Providers Care Paperboard Machine Operator Name Role Phone Tyson Fonseca MD [...] of Treatment Not on file Care Teams Paperboard Machine Operator Relationship Specialty Start Date End Date Tyson Fonseca MD PCP - General 07/09/16
--- OUTSIDE RECORDS SUMMARY | 2025-05-14 09:07 | XMS_ITS | Encounter Summary ---
Author Organization [employer] tem Address [id number] [address] [place] [address] Care Team Providers Care Mounter Clarinets Name Role Phone Cisco Blanc DO Primary Care Provider + [phone] Reason for Referral * Medication Prior Authorization - Pending Review Specialty Diagnoses / Procedures Referred By Hung almanzar Referred To Contact Diagnoses Anal fissure Cisco Blanc DO [address], [facility] [place] [address] Phone: tel: fax: Referral ID Status Reason Start Date Expiration Date V isits Requested Visits Authorized [id number] Pending Review 1 1 Reason for Visit * Reason Onset Date Comments Med Refill 05/13/2025 Encounter Details Date Type Department Care Team (Late st Contact Info) Description 05/13/2025 Refill [facility] Internal [facility] - Family Medicine [address] [place] [address] Cisco Blanc DO [address], [facility] [address] Anal fissure (Primary Dx) Social History Tobacco Use Types Packs/Day Years Used Date Smoking Tobacco: Former Cigarettes 1 34 1 09/23/1984 - 12/20/2018 Passive Smoke Exposure: Past Smokeless Tobacco: Never Comments:vape, today Alcohol Use Standard Drinks/Week Comments Yes 0 (1 standard drink = 0.6 oz pur e alcohol) Occasional [facility] Utilities Answer Date Recorded In the past 12 months has e electric, gas, oil, or water company [...] How often do you attend spiritism or baptist serv ices? Never 08/01/2022 Active [...] PHQ-2 Answer Date Recorded Total Score 12/10/2024 [facility] of Occupat ional Health - Occupational Stress [...] [facility] documented as of this encounter Visit Diagnoses Diagnosis Anal fissure- Primary documented in this encounter Additional Health Concerns Assessment Noted Time PHQ-9 Depression Total Score: 21 025 1:04 PM EDT documented as of this encounter Care Teams Mounter Clarinets Relationship Specialty Start Date End Date Cisco Blanc DO [address], [place] [address] PCP - General Family Medicine 12/19/19 documented as of this encounter
--- OUTSIDE RECORDS SUMMARY | 2025-05-14 09:07 | XMS_ITS | Encounter Summary ---
Author Organization [employer] tem Address [id number] [address] [place] [address] Care Team Providers Care Sequins Winder Name Role Phone Cisco Blanc Primary Care Provider Encounter Details Date Type Department Care Team (Late st Contact Info) Description 02/06/2024 Orders Only [facility] Internal Medicine - Family Medicine [address] [place] [phone] Ty Burciaga DO [address] [place] [address] Change in bowel habits (Primary Dx) Social [...] week 08/01/2022 How often do you attend gnosticism or moravian serv ices? Never 08/01/2022 Active Member of [...] family, patient needs to fllow up with [facility] Dc documented as of this encounter Visit Diagnoses Diagnosis Change in bowel habits- Primary Other symptoms involving digestive system documented in this encounter Additional Health Concerns Assessment Noted Time PHQ-9 Depression Total Score: 16 024 8:43 AM EDT documented as of this encounter Care Teams Sequins Winder Relationship Specialty Start Date End Date Cisco Blanc DO [address] [facility], [facility] [place] [address] PCP - General Family Medicine 12/19/19 documented as of this encounter
--- OUTSIDE RECORDS SUMMARY | 2025-05-14 09:07 | XMS_ITS | Clinical Summary ---
Author Organization [employer] tem Address [id number] [address] [place] [address] Care Team Providers Care Motor Builder Winder Name Role Phone GerardoCisco cao Primary Care [...] Active hydrocortisone-p ramoxine (ANALPRAM-HC) 1-1 % rectal creamIndications :Anal fissure Insert 1 Application into the rectum in the morning and 1 Application before bedtime. 30 g 05/13/20 25 Active cloNIDine (CATAPRES) 0.1 mg tablet Take 1 tablet (0.1 mg total) by mouth in the morning and 1 tablet (0.1 mg total) before bedtime. 60 tablet 1 05/13/20 25 Active polyethylene glycol (MIRALAX) 17 gram/dose powder Take 17 g by mouth in the morning. 510 g 5 05/13/20 25 Active wheat dextrin (BENEFIBER SUGAR FREE, DEXTRIN,) 3 gram/4 gram powder Take 3 g by mouth in the morning. 152 g 5 05/13/20 25 Active hydrocortisone-p ramoxine (ANALPRAM-HC) 1-1 % rectal cream Insert 1 Application into the rectum in the morning and 1 Application before bedtime. 30 g 12/21/19 25 025 Discontin ued(Reord er) cloNIDine (CATAPRES) 0.1 mg tablet Take 1 tablet (0.1 mg total) by mouth in the morning and 1 tablet (0.1 mg total) before bedtime. 60 tablet 1 03/27/20 25 025 Discontin ued(Reord er) polyethylene glycol (MIRALAX) 17 gram/dose powder Take 17 g by mouth in the morning. 510 g 5 03/27/20 25 025 Discontin ued(Reord er) wheat dextrin (BENEFIBER SUGAR FREE, DEXTRIN,) 3 gram/4 gram powder Take 3 g by mouth in the morning. 152 g 5 03/27/20 25 025 Discontin ued(Reord er) Active Problems [...] Encounters Date Type Department Care Team Description 05/13/2025 Refill [facility] Internal Medicine - Family Medicine [address] [place] [address] Cisco Blanc, DO Anal fissure (Primary Dx) 05/08/2025 Orders Only [facility] - Family [facility] [address] [facility] [place] [address] Ref Prov, Not In System 04/11/2025 Orders Only [facility] Medicine - Family [facility] [address] [address] Ref Prov, Not In System 03/22/2025 Refill [facility] Medicine - Family Medicine [address] [facility] [facility] [place] [address] Cisco Blanc, DO Anxiety from Last 3 Months Immunizations [...] In the past 12 months has e [employer], gas, oil, or water company threatened to [...] How often do you attend catholic or mandaeism serv ices? Never 08/01/2022 Active [...] Answer Date Recorded Total Score 21 12/10/2024 [facility] of Occupat [...] or Tdap) 10/28/2023 10/27/2013 COVID-19 Vaccine ( season) 2025 06/20/2021, 12/08/2020, 11/18/2020 Influenza Vaccine [...] family, patient needs to fllow up with [facility] Medical Devices Not on file Procedures [...] Margy l Result MANUALLY TRANSCRIBED RESULTS * CBC W Auto Diff Bld (03/18/2025 12:31 PM EDT) us Not In System Ref Prov LAB BLOOD ORDERABLES Margy grayson Result MANUALLY TRANSCRIBED RESULTS * Colonoscopy Report [...] Personal/Family Self 1970 [address] [facility] [place] [address] [employer] * Guarantor: [id number] Account Type Relation to Patient Date of [...] 1:54 PM 01/17/2018 3:11 PM Care Teams Motor Builder Winder Relationship Specialty Start Date End Date Cisco Blanc DO [address] [facility], [place] [address] PCP - General Family Medicine 12/19/19
--- OUTSIDE RECORDS SUMMARY | 2025-05-14 09:07 | XMS_ITS | Encounter Summary ---
Author Organization [employer] tem Address [id number] [address] [place] [address] Care Team Providers Care Cooking Chef Name Role Phone Cisco Blanc Primary Care Provider [phone] Encounter Details Date Type Department Care Team (Late st Contact Info) Description 04/11/2025 Orders Only [facility] Medicine - Family Medicine [address] [place] [address] Ref Prov, [place] [address] Social History Tobacco Use Types Packs/Day Years Used Date Smoking Tobacco: Former Cigarettes 1 34 1 09/23/1984 - 12/20/2018 Passive Smoke Exposure: Past Smokeless Tobacco: Never Comments:vape, today Alcohol Use Standard Drinks/Week Comments Yes 0 (1 standard drink = 0.6 oz pur e alcohol) Occasional C Utilities Answer Date Recorded In the past 12 months has [employer], gas, oil, or water [employer] threatened to shut off services in your [...] How often do you attend religious or islam serv ices? Never 08/01/2022 Active [...] PHQ-2 Answer Date Recorded Total Score 12/10/2024 [facility] of Occupat ional [...] fllow up with [facility] documented as of this encounter [...] ORDERABLES Margy l Result Performing Organization Address City/[facility] Co de Phone Number MANUALLY TRANSCRIBED RESULTS * CBC W Auto Diff Bld (03/18/2025 12:31 PM EDT) us Not In System Ref Prov LAB BLOOD ORDERABLES Margy l Result Performing Organization Address City/[facility] Co de Phone Number MANUALLY TRANSCRIBED RESULTS documented in this encounter Visit Diagnoses Not on filedocumented in this encounter Additional Health Concerns Assessment Noted Time PHQ-9 Depression Total Score: 21 025 1:04 PM EDT documented as of this encounter Care Teams Cooking Chef Relationship Specialty Start Date End Date Furlong, Cisco G, DO [address] [place] [address] PCP - General Family Medicine 12/19/19 documented as of this encounter
--- OUTSIDE RECORDS SUMMARY | 2025-05-14 09:07 | XMS_ITS | Encounter Summary ---
Author Organization [employer] Address [id number] [address] [place] [address] Care Team Providers Care Dietitian Helper Name Role Phone Cisco Blanc Primary Care Provider Encounter Details Date Type Department Care Team (Late st Contact Info) Description 11/23/2023 Orders Only [facility] Internal Medicine - Family Medicine [address] [place] [phone] External, Scanning Provider Social History Tobacco Use [...] often do you attend oriental orthodox or presybeterian serv ices? Never 08/01/2022 Active [...] Score 0 02/17/2023 [facility] [place] of Occupat ional Health - Occupational Stress [...] Recorded Do you need help finding a [facility] career center and/or a training program? [...] documented as of this encounter Care Teams Dietitian Helper Relationship Specialty Start Date End Date Cisco Blanc DO [address], [place] [address] PCP - General Family Medicine 12/19/19 documented as of this encounter
--- OUTSIDE RECORDS SUMMARY | 2025-05-14 09:07 | XMS_ITS | Encounter Summary ---
Author Organization [employer] Address [id number] [address] [place] [address] Care Team Providers Care Content Manager Name Role Phone Cisco Blanc Primary Care Provider Encounter Details Date Type Department Care Team (Late st Contact Info) Description 02/06/2024 [facility] [address] [place] [address] Linda Marc CMA Social History Tobacco Use [...] How often do you attend anabaptist or evangelical serv ices? Never 08/01/2022 Active [...] Date Recorded Total Score 16 12/09/2023 [facility] [place] of Occupat ional Health - Occupational Stress [...] Recorded Do you need help finding a [employer] career center and/or a training program? [...] would like the S[facility] his pharmacy is [facility] in [place]. He is a Dr Blanc pt. Change [...] family, patient needs to fllow up with [facility] documented as of this encounter Visit Diagnoses Not on filedocumented in this encounter Additional Health Concerns Assessment Noted Time PHQ-9 Depression Total Score: 16 024 8:43 AM EDT documented as of this encounter Care Teams Content Manager Relationship Specialty Start Date End Date Cisco Blanc DO [address], [facility] [address] PCP - General Family Medicine 12/19/19 documented as of this encounter
--- OUTSIDE RECORDS SUMMARY | 2025-05-14 09:07 | XMS_ITS | Encounter Summary ---
Author Organization [employer] tem Address [id number] [address] [place] [address] Care Team Providers Care Interior Design Principal Name Role Phone Cisco Blanc Primary Care Provider Encounter Details Date Type Department Care Team (Late st Contact Info) Description 03/11/2023 Orders Only [facility] Internal [facility] - Family Medicine [address] [place] [phone] External, Scanning Provider Social History Tobacco Use [...] How often do you attend scientology or oriental orthodox serv ices? Never 08/01/2022 [...] Answer Date Recorded Total Score 0 02/17/2023 [facility] [place] of Occupat ional Health - Occupational Stress [...] documented as of this encounter Care Teams Interior Design Principal Relationship Specialty Start Date End Date Cisco Blanc DO [address] [facility], [place] [address] PCP - General Family Medicine 12/19/19 documented as of this encounter
--- OUTSIDE RECORDS SUMMARY | 2025-05-14 09:07 | XMS_ITS | Encounter Summary ---
Demographics Address [address] [facility] [place] [address] Home Phone Mobile Phone Email Address Email Address Preferred Language ENG Marital Status Single Yazidi Affiliation Unknown Race White Ethnic Group or Author Organization [facility] Address [address] [place] [address] Care Team Providers Care Fermenter Name Role Phone Tyson Fonseca MD Primary Care Provider Vivian Brady MD Unavailable [phone] Source Comments In the event this information is protected by the Federal Confidentiality of Alcohol and Drug AbusePatient Records regulations: The Federal rules restrict any use of the information to criminally investigate or prosecute any alcohol or drug abuse patient.[facility] Encounter Details Date Type Department Care Team (Late st Contact Info) Description 02/15/2025 Patient Msg General Surgery [address] [address] Provider, Ccwaqar Follow up from phone call [...] on filedocumented in this encounter Care Teams Fermenter Relationship Specialty Start Date End Date Tyson Fonseca MD PCP - General Family Medicine 11/11/15 Vivian Brady MD [address] [place] [address] Gastroenterology 01/16/25 documented as of this encounter
--- OUTSIDE RECORDS SUMMARY | 2025-05-14 09:07 | XMS_ITS | Encounter Summary ---
Author Organization [employer] tem Address [id number] [address] [place] [address] Care Team Providers Care Professional Benefits Sales Consultant Name Role Phone Cisco Blanc Primary Care Provider Encounter Details Date Type Department Care Team (Late st Contact Info) Description 02/25/2023 Orders Only [facility] Internal Medicine - Family Medicine [address] [place] [address] External, Scanning Provider Social History Tobacco Use [...] How often do you attend caodaism or presybeterian serv ices? Never 08/01/2022 Active [...] Answer Date Recorded Total Score 0 02/17/2023 [facility] of Occupat ional Health - Occupational Stress [...] Recorded Do you need help finding a [facility] and/or a [...] family, patient needs to fllow up with [facility] Dc documented as of this encounter Procedures [...] documented as of this encounter Care Teams Professional Benefits Sales Consultant Relationship Specialty Start Date End Date Cisco Blanc DO [address] [place] [address] PCP - General Family Medicine 12/19/19 documented as of this encounter
--- OUTSIDE RECORDS SUMMARY | 2025-05-14 09:07 | XMS_ITS | Encounter Summary ---
Author Organization [employer] tem Address [id number] [address] [place] [address] Care Team Providers Care Mig Tig Welder Name Role Phone Cisco Blanc Primary Care Provider Encounter Details Date Type Department Care Team (Late st Contact Info) Description 03/30/2023 Orders Only [facility] Internal Medicine - Family Medicine [address] [place] [place] [address] Ref Prov, [place] [address] Social History Tobacco Use Types Packs/Day Years [...] How often do you attend scientology or pentecostalism serv ices? Never 08/01/2022 Active [...] Answer Date Recorded Total Score 0 02/17/2023 [facility] of Occupat ional Health [...] patient needs to fllow up with [facility] Dc documented as of this encounter Visit Diagnoses Not on filedocumented in this encounter Additional Health Concerns Assessment Noted Time PHQ-9 Depression Total Score: 0 02/18/20 23 3:23 PM EDT documented as of this encounter Care Teams Mig Tig Welder Relationship Specialty Start Date End Date Cisco Blanc DO [address], [facility] [place] [address] PCP - General Family Medicine 12/19/19 documented as of this encounter
--- OUTSIDE RECORDS SUMMARY | 2025-05-14 09:07 | XMS_ITS | Encounter Summary ---
Author Organization [employer] tem Address [id number] [address] [place] [address] Care Team Providers Care Oxygen Furnace Operator Name Role Phone Cisco Blanc Primary Care Provider Encounter Details Date Type Department Care Team (Late st Contact Info) Description 02/14/2024 Orders Only [facility] Internal Medicine - Family Medicine [address] [place] [phone] Ty Burciaga DO [address] [place] [address] Change in bowel habits (Primary Dx) Social [...] How often do you attend caodaism or jehovah's witness serv ices? Never 08/01/2022 [...] Answer Date Recorded Total Score 16 12/09/2023 [facility] of Occupat ional Health - [...] to fllow up with [facility] Dc documented as of this encounter Visit Diagnoses Diagnosis Change in bowel habits- Primary Other symptoms involving digestive system documented in this encounter Additional Health Concerns Assessment Noted Time PHQ-9 Depression Total Score: 16 024 8:43 AM EDT documented as of this encounter Care Teams Oxygen Furnace Operator Relationship Specialty Start Date End Date Cisco Blanc DO [address] [facility] [place] [address] PCP - General Family Medicine 12/19/19 documented as of this encounter
--- OUTSIDE RECORDS SUMMARY | 2025-05-14 09:07 | XMS_ITS | Encounter Summary ---
Author Organization [employer] tem Address [id number] [address] [place] [address] Care Team Providers Care Ramp Attendant Name Role Phone Cisco Blanc Primary Care Provider Encounter Details Date Type Department Care Team (Late st Contact Info) Description 02/13/2024 [facility] [address] [place] [phone] Linda aMrc CMA Social History Tobacco Use Types Packs/Day [...] How often do you attend mandaeism or jew serv ices? Never 08/01/2022 Active [...] Answer Date Recorded Total Score 16 12/09/2023 [facility] of Occupat ional Health - Occupational Stress [...] Recorded Do you need help finding a [employer] career center and/or a training program? [...] documented as of this encounter Care Teams Ramp Attendant Relationship Specialty Start Date End Date Cisco Blanc DO [address] [place], [place] [address] PCP - General Family Medicine 12/19/19 documented as of this encounter
--- OUTSIDE RECORDS SUMMARY | 2025-05-14 09:07 | XMS_ITS | Encounter Summary ---
Author Organization [employer] tem Address [id number] [address] [place] [address] Care Team Providers Care Efficiency Manager Name Role Phone Cisco Blanc Primary Care Provider Encounter Details Date Type Department Care Team (Late st Contact Info) Description 02/14/[address] [address] [place] [phone] Linda Marc CMA Social History Tobacco Use [...] week 08/01/2022 How often do you attend adventism or evangelical serv ices? Never 08/01/2022 Active [...] Answer Date Recorded Total Score 16 12/09/2023 [facility] [place] of Occupat ional Health - Occupational Stress [...] Recorded Do you need help finding a [employer] al career center and/or a training program? [...] him know that Dr Burciaga sent in LUVHAN to his pharmacy also Isent him a [...] documented as of this encounter Care Teams Efficiency Manager Relationship Specialty Start Date End Date Cisco Blanc DO [address], [place] [address] PCP - General Family Medicine 12/19/19 documented as of this encounter
--- OUTSIDE RECORDS SUMMARY | 2025-05-14 09:07 | XMS_ITS | Encounter Summary ---
Demographics Address [address] [place] [address] Home Phone Mobile Phone Email Address Email Address Preferred Language ENG Marital Status Single Restorationist Affiliation Unknown Race White Ethnic Group or Author Organization [facility] Address [address] [place] [address] Care Team Providers Care Certified Nutritionist Name Role Phone Tyson Fonseca MD Primary Care Provider [phone] Vivian Brady MD Unavailable [phone] Source Comments In the event this information is protected by the Federal Confidentiality of Alcohol and Drug AbusePatient Records regulations: The Federal rules restrict any use of the information to criminally investigate or prosecute any alcohol or drug abuse patient.[facility] Encounter Details Date Type Department Care Team (Late st Contact Info) Description 02/20/2025 Patient Msg Colorectal Surgery [address] [address] Violette Maurer APRN.[facility] [address] [place] [address]. [place] [phone] anorectal manometry ordered. Social History Tobacco Use [...] on filedocumented in this encounter Care Teams Certified Nutritionist Relationship Specialty Start Date End Date Tyson Fonseca MD PCP - General Family Medicine 11/11/15 Vivian Brady MD [address] [place] [address] Gastroenterology 01/16/25 documented as of this encounter
--- OUTSIDE RECORDS SUMMARY | 2025-05-14 09:07 | XMS_ITS | Clinical Summary ---
Author Organization [facility] Address [address] [place] [address] Care Team Providers Care Manager Heavy Equipment Name Role Phone Tyson Fonseca MD Primary Care Provider [phone] Vivian Brady MD Unavailable [phone] Allergies No known active allergies Medications [...] Description 04/03/2025 Patient Msg Colorectal Surgery [address] [place] [phone] Lydia Drake PA-C Follow up from virtual visit 04/03/2025 Patient Update Colorectal Surgery [address] [address] Lydia Drake PA-C Pelvic Floor Conference 04/02/2025 11:30 AM EDT [facility] Colorectal Surgery [address] [place] [phone] Lydia Drake PA-C Constipation, unspecified constipation type (Primary Dx); Rectal spasm; Pelvic floor dysfunction; Anxiety; Distressed about housing issues; Orthostatic dizziness 03/26/2025 Refill Colorectal Surgery [address] [address] Lydia Drake PA-C Refill Request 03/21/2025 Travel 03/08/2025 Abstract Colorectal Surgery [address] [address] Suma Navarrete DO 03/07/2025 Telephone Colorectal Surgery [address] [address] Lydia Drake PA-C Patient Update 03/01/2025 Patient Msg Colorectal Surgery [address] [address] Lydia Drake PA-C Follow up from visit 02/28/2025 1:00 PM EDT Office Visit Colorectal Surgery [address] [place] [phone] Lydia Drake PA-C Pelvic floor dysfunction (Primary Dx); Rectal spasm; Constipation, unspecified constipation type 02/28/2025 12:30 PM EDT Nurse Visit Colorectal Surgery [address] [place] [phone] Sahil Bergeron RN Pelvic floor dysfunction 02/20/2025 Patient Ms Colorectal Surgery [address] [place] [address] Violette Maurer APRN.SIGNWRITER anorectal manometry ordered. 02/20/2025 Orders Only Colorectal Surgery [address] [place] [phone] Violette Maurer APRN.LIDA Pelvic floor dysfunction (Primary Dx) 02/15/2025 Patient Ms General Surgery [address] [place] [address] Provider, Ccf Follow up from phone call 02/15/2025 Travel 02/11/2025 Telephone Colorectal Surgery [address] [place] [phone] Ashley Hayward MD Appointment (Left vm we received referral for botox injections) from Last 3 Months Social History Tobacco Use Types Packs/Day Years Used Date Smoking Tobacco: Never Assessed Area Deprivation Index Answer Date Juan Carlos rded National Score (1-100), lower number is lower ri sk 93 02/28/2025 State Score (1-10), lower number is lower risk 9 02/28/2025 Data from: https://www.neighborhoodatlas.medicine.[facility].edu/. Last address used for calculation [...] Name Priority Date/Time Associated Diagnosis Comments ADULT [place] ANORECTAL MANOMETRY Routine 02/28/2025 Pelvic floor dysfunction PT ED PATIENT INFORMATION 02/12/2025 from Last 3 Months Results * ADULT [place] ANORECTAL MANOMETRY (02/28/2025) Anatomical Region Laterality Modality Other Narrative 02/28/2025 PATIENT NAME: Harlan Arnold PATIENT IDENTITY VERIFICATION COMPLETED USING TWO (2) IDENTIFIERS: Name and Date of confirmed by patient verbally. Referred by: Violette Maurer APRN.CNP Reason for testing: constipation Ileoanal pouch: No SENSITIVE EXAMINATION CONSENT: The sensitive examination was discussed with the Patient or Patient's Authorized Barn Manager. As applicable, any other physician, advance practice provider, medical student, or other health professional student that will be observing or involved in the sensitive examination for educational or training purposes was discussed with the Patient or Authorized Barn Manager. The Patient or Authorized Barn Manager has agreed to proceed with the sensitive examination. Unemployment Inspector offered:Patient accepts, visit chaperoned by Antonieta PAYNE,RN [...] Colon & Rectal Surgery us Violette Maurer APRN.SIGNWRITER DIGESTIVE DISEASE Final Result * PT ED [...] Personal/Family Self 1970 [address] [place] [address] [facility] Care Teams Manager Heavy Equipment Relationship Specialty Start Date End Date Tyson Fonseca MD PCP - General Family Medicine 11/11/15 Vivian Brady MD [address] [place] [address] Gastroenterology 01/16/25
--- OUTSIDE RECORDS SUMMARY | 2025-05-14 09:07 | XMS_ITS | Encounter Summary ---
Author Organization [employer] tem Address [id number] [address] [place] [address] Care Team Providers Care Beater Machine Operator Name Role Phone Cisco Blanc Primary Care Provider [phone] Encounter Details Date Type Department Care Team (Late st Contact Info) Description 02/13/2024 Orders Only [facility] Internal Medicine - Family Medicine [address] [place] [phone] Ty Burciaga DO [address] [place] [address] Change in bowel habits (Primary Dx) Social [...] How often do you attend rastafari or jehovah's witness serv ices? Never 08/01/2022 [...] Answer Date Recorded Total Score 16 12/09/2023 [facility] of Occupat ional [...] documented as of this encounter Care Teams Beater Machine Operator Relationship Specialty Start Date End Date Cisco Blanc DO [address] [facility], [place] [address] PCP - General Family Medicine 12/19/19 documented as of this encounter
--- OUTSIDE RECORDS SUMMARY | 2025-05-14 09:08 | XMS_ITS | Encounter Summary ---
Author Organization [employer] tem Address [id number] [address] [place] [address] Care Team Providers Care Animal Treatment Investigator Name Role Phone Cisco Blanc Primary Care Provider Encounter Details Date Type Department Care Team (Late st Contact Info) Description 05/30/2024 Orders Only [facility] Internal Medicine - Family Medicine [address] [place] [address] Ref Prov, [place] [address] Social History Tobacco Use Types Packs/Day Years [...] How often do you attend anabaptism or anglican serv ices? Never 08/01/2022 Active Member of [...] Answer Date Recorded Total Score 21 03/15/2024 [facility] Questionnaire Answer Date [...] Recorded Do you need help finding a [facility] career center and/or a training [...] documented as of this encounter Care Teams Animal Treatment Investigator Relationship Specialty Start Date End Date Cisco Blanc DO [address], [place] [address] PCP - General Family Medicine 12/19/19 documented as of this encounter
--- OUTSIDE RECORDS SUMMARY | 2025-05-14 09:08 | XMS_ITS | Encounter Summary ---
Author Organization [employer] tem Address [id number] [address] [place] [address] Care Team Providers Care Lead Oracle Developer Name Role Phone Cisco Blanc DO Primary Care Provider [phone] Reason for Visit * Reason Comments Med Refill Encounter Details Date Type Department Care Team (Late st Contact Info) Description 02/15/2023 Refill [facility] Internal Medicine - Family Medicine [address] [place] [address] Cisco Blanc DO [address], [facility] [place] [address] Social History Tobacco Use Types Packs/Day Years [...] How often do you attend spiritism or episcopal serv ices? Never 08/01/2022 Active [...] Answer Date Recorded Total Score 0 02/17/2023 [facility] of Occupat ional Health - Occupational [...] Recorded Do you need help finding a [facility] medical centeral career center and/or a [...] [facility] upon Dc documented as of this encounter Visit Diagnoses Not on filedocumented in this encounter Additional Health Concerns Assessment Noted Time PHQ-9 Depression Total Score: 9 08/01/20 22 6:00 PM EST documented as of this encounter Care Teams Lead Oracle Developer Relationship Specialty Start Date End Date Cisco Blanc DO [address], [facility] [place] [address] PCP - General Family Medicine 12/19/19 documented as of this encounter
--- OUTSIDE RECORDS SUMMARY | 2025-05-14 09:08 | XMS_ITS | Encounter Summary ---
Author Organization [employer] tem Address [id number] [address] [place] [address] Care Team Providers Care Publisher Assistant Name Role Phone Cisco Blanc Primary Care Provider Encounter Details Date Type Department Care Team (Late st Contact Info) Description 02/24/2023 Orders Only [facility] Internal Medicine - Family Medicine [address] [place] [address] External, Scanning Provider Social History Tobacco Use [...] week 08/01/2022 How often do you attend latter day or latter-day serv ices? Never 08/01/2022 Active Member of [...] Answer Date Recorded Total Score 0 02/17/2023 [facility] [place] of Occupat ional Health - Occupational Stress [...] Do you need help finding a [facility] career center and/or a training [...] documented as of this encounter Care Teams Publisher Assistant Relationship Specialty Start Date End Date Cisco Blanc DO [address] [facility], [place] [address] PCP - General Family Medicine 12/19/19 documented as of this encounter
--- OUTSIDE RECORDS SUMMARY | 2025-05-14 09:08 | XMS_ITS | Clinical Summary ---
Author Organization [facility] Healthcare Address [address] [place] [address] Care Team Providers Care Director Regulatory Agency Name Role Phone Unavailable Primary Care Provider [...]
--- OUTSIDE RECORDS SUMMARY | 2025-05-14 09:08 | XMS_ITS | Encounter Summary ---
Author Organization [employer] tem Address [id number] [address] [place] [address] Care Team Providers Care Grinder Operator Automatic Name Role Phone Cisco Blanc Primary Care Provider Encounter Details Date Type Department Care Team (Late st Contact Info) Description 05/07/2024 Orders Only [facility] Internal Medicine - Family Medicine [address] [place] [address] Ref Prov, [place] [address] Social History Tobacco Use Types Packs/Day Years [...] How often do you attend taoist or pentecostalism serv ices? Never 08/01/2022 Active [...] Date Recorded Total Score 21 03/15/2024 [facility] of Occupat [facility] - Occupational Stress Questionnaire Answer [...] family, patient needs to fllow up with [facility] upon Dc documented as of [...] documented as of this encounter Care Teams Grinder Operator Automatic Relationship Specialty Start Date End Date Cisco Blanc DO [address] [facility], [place] [address] PCP - General Family Medicine 12/19/19 documented as of this encounter
--- OUTSIDE RECORDS SUMMARY | 2025-05-14 09:08 | XMS_ITS | Encounter Summary ---
Author Organization [employer] tem Address [id number] [address] [place] [address] Care Team Providers Care Renovator Machine Operator Name Role Phone Cisco Blanc Primary Care Provider Encounter Details Date Type Department Care Team (Late st Contact Info) Description 05/08/2025 Orders Only [facility] Internal Medicine - Family Medicine [address] [place] [address] Ref Prov, [place] [address] Social History Tobacco Use Types Packs/Day Years Used Date Smoking Tobacco: Former Cigarettes 1 34 1 09/23/1984 - 12/20/2018 Passive Smoke Exposure: Past Smokeless Tobacco: Never Comments:vape, today Alcohol Use Standard Drinks/Week Comments Yes 0 (1 standard drink = 0.6 oz pur e alcohol) Occasional C Utilities Answer Date Recorded In the past 12 months has [employer], gas, oil, or water [employer] threatened to shut off services in your [...] How often do you attend congregation or nondenominational serv ices? Never 08/01/2022 Active [...] PHQ-2 Answer Date Recorded Total Score 12/10/2024 [facility] of Occupat ional Health [...] Recorded Do you need help finding a [facility] career center and/or a training [...] family, patient needs to fllow up with [facility] documented as of this encounter [...] documented as of this encounter Care Teams Renovator Machine Operator Relationship Specialty Start Date End Date Cisco Blanc DO [address], [place] [address] PCP - General Family Medicine 12/19/19 documented as of this encounter
--- OUTSIDE RECORDS SUMMARY | 2025-05-14 09:08 | XMS_ITS | Encounter Summary ---
Author Organization [employer] tem Address [id number] [address] [place] [address] Care Team Providers Care Executive Compensation Analyst Name Role Phone Cisco Blanc Primary Care Provider Encounter Details Date Type Department Care Team (Late st Contact Info) Description 03/13/2024 Orders Only [facility] Internal Medicine - Family Medicine [address] [place] [address] Ref Prov, [place] [address] Social History Tobacco Use Types Packs/Day Years [...] How often do you attend gnosticism or islam serv ices? Never 08/01/2022 Active [...] 21 03/15/2024 [facility] of Occupat [facility] - Occupational Stress Questionnaire Answer [...] Recorded Do you need help finding a [facility] medical centeral career center and/or a [...] documented as of this encounter Care Teams Executive Compensation Analyst Relationship Specialty Start Date End Date Cisco Blanc DO [address] [facility], [place] [address] PCP - General Family Medicine 12/19/19 documented as of this encounter
--- OUTSIDE RECORDS SUMMARY | 2025-05-14 09:08 | XMS_ITS | Clinical Summary ---
Demographics Address [address] [place] [address] Home Phone Mobile Phone Email Address Preferred Language en Marital Status Single Yazdanism Affiliation Unknown Race White Ethnic Group Not or Lati no Author Organization [facility] Address [address] [place] [address] Care Team Providers Care Adult Health Clinical Nurse Specialist Name Role Phone Unavailable Primary Care Provider [...]
--- OUTSIDE RECORDS SUMMARY | 2025-05-14 09:08 | XMS_ITS | Encounter Summary ---
Author Organization [employer] tem Address [id number] [address] [place] [address] Care Team Providers Care Nut Cracker Name Role Phone Cisco Blanc Primary Care Provider Encounter Details Date Type Department Care Team (Late st Contact Info) Description 06/01/2024 Orders Only [facility] Internal Medicine - Family Medicine [address] [place] [address] Ref Prov, [place] [address] Social History Tobacco Use Types Packs/Day Years [...] How often do you attend restorationist or rastafarian serv ices? Never 08/01/2022 Active Member of [...] Answer Date Recorded Total Score 21 03/15/2024 [facility] - Occupational Stress Questionnaire Answer Date Recorded [...] Recorded Do you need help finding a [facility] and/or a training [...] family, patient needs to fllow up with [facility] documented as of this encounter Procedures [...] documented as of this encounter Care Teams Nut Cracker Relationship Specialty Start Date End Date Cisco Blanc DO [address] [facility], [place] [address] PCP - General Family Medicine 12/19/19 documented as of this encounter
--- OUTSIDE RECORDS SUMMARY | 2025-05-14 09:08 | XMS_ITS | Encounter Summary ---
Author Organization [employer] tem Address [id number] [address] [place] [address] Care Team Providers Care Press Assistant Name Role Phone Cisco Blanc Primary Care Provider Encounter Details Date Type Department Care Team (Late st Contact Info) Description 02/20/2024 [facility] [address] [place] [phone] Linda Marc CMA Social History Tobacco Use [...] How often do you attend mormon or voodoo serv ices? Never 08/01/2022 Active [...] Answer Date Recorded Total Score 16 12/09/2023 [facility] of Occupat ional Health - Occupational [...] Recorded Do you need help finding a [facility] al career center and/or a training program? [...] documented as of this encounter Care Teams Press Assistant Relationship Specialty Start Date End Date Cisco Blanc DO [address], [place] [address] PCP - General Family Medicine 12/19/19 documented as of this encounter
--- OUTSIDE RECORDS SUMMARY | 2025-05-14 09:08 | XMS_ITS | Encounter Summary ---
Author Organization [employer] tem Address [id number] [address] [place] [address] Care Team Providers Care Automobile Upholsterer Name Role Phone Cisco Blanc DO Primary Care Provider [phone] Reason for Visit * Reason Comments Med Refill Encounter Details Date Type Department Care Team (Late st Contact Info) Description 06/18/2022 Refill [facility] Internal Medicine - Family Medicine [address] [place] [address] Cisco Blanc DO [address], [facility] [place] [address] Social History Tobacco Use Types Packs/Day Years [...] to fllow up with [facility] documented as of this encounter Visit Diagnoses Not on filedocumented in this encounter Care Teams Automobile Upholsterer Relationship Specialty Start Date End Date Cisco Blanc DO [address] [facility], [place] [address] PCP - General Family Medicine 12/19/19 documented as of this encounter
--- OUTSIDE RECORDS SUMMARY | 2025-05-14 09:08 | XMS_ITS | Encounter Summary ---
Author Organization [employer] tem Address [facility] [place]-[id number] [address] [place] [address] Care Team Providers Care Tax Economist Name Role Phone Cisoc Blanc DO Primary Care Provider [phone] Reason for Visit * Reason Comments Med Refill Encounter Details Date Type Department Care Team (Late st Contact Info) Description 05/12/2022 [facility] [address] [place] [phone] Cisco Blanc DO [address] [facility], [facility] [place] [address] Social History Tobacco Use Types Packs/Day Years [...] family, patient needs to fllow up with [facility] documented as of this encounter Visit Diagnoses Not on filedocumented in this encounter Care Teams Tax Economist Relationship Specialty Start Date End Date Cisco Blanc DO [address] [facility], [facility] [place] [address] PCP - General Family Medicine 12/19/19 documented as of this encounter
--- OUTSIDE RECORDS SUMMARY | 2025-05-14 09:08 | XMS_ITS | Encounter Summary ---
Author Organization [employer] tem Address [id number] [address] [place] [address] Care Team Providers Care Master Dyer Name Role Phone Cisco Blanc Primary Care Provider Encounter Details Date Type Department Care Team (Late st Contact Info) Description 09/06/2024 Orders Only [facility] Internal Medicine - Family Medicine [address] [place] [address] Ref Prov, [place] [address] Social History Tobacco Use Types Packs/Day Years [...] week 08/01/2022 How often do you attend roman catholic or catholic serv ices? Never 08/01/2022 [...] Answer Date Recorded Total Score 21 03/15/2024 [facility] Occup[facility] Questionnaire Answer Date [...] Recorded Do you need help finding a [facility] career [facility] and/or a training [...] family, patient needs to fllow up with [facility] documented as of this encounter Procedures [...] as of this encounter Care Teams Master Dyer Relationship Specialty Start Date End Date Cisco Blanc DO [address], [place] [address] PCP - General Family Medicine 12/19/19 documented as of this encounter
--- OUTSIDE RECORDS SUMMARY | 2025-05-14 09:08 | XMS_ITS | Encounter Summary ---
Author Organization [employer] tem Address [id number] [address] [place] [address] Care Team Providers Care Manager Business Name Role Phone Cisco Blanc Primary Care Provider Encounter Details Date Type Department Care Team (Late st Contact Info) Description 03/12/2024 Orders Only [facility] Internal [facility] - Family Medicine [address] [place] [address] Ref Prov, [place] [address] Social History Tobacco Use Types Packs/Day Years [...] How often do you attend confucianism or christianity serv ices? Never 08/01/2022 Active [...] Answer Date Recorded Total Score 21 03/15/2024 [facility] of Occupat [facility] - Occupational Stress Questionnaire Answer Date Recorded [...] family, patient needs to fllow up with [facility] documented as of this [...] as of this encounter Care Teams Manager Business Relationship Specialty Start Date End Date Cisco Blanc DO [address], [place] [address] PCP - General Family Medicine 12/19/19 documented as of this encounter
--- OUTSIDE RECORDS SUMMARY | 2025-05-14 09:08 | XMS_ITS | Encounter Summary ---
Author Organization [employer] tem Address [facility] [place]-[id number] [address] [place] [address] Care Team Providers Care Professional Housing Consultant Name Role Phone Cisco Blanc DO Primary Care Provider [phone] Reason for Visit * Reason Comments Med Refill Encounter Details Date Type Department Care Team (Late st Contact Info) Description 09/15/2022 Refill [facility] - Family Medicine [address] [place] [address] Cisco Blanc DO [address], [facility] [address] Social History Tobacco Use Types Packs/Day Years [...] How often do you attend zoroastrianism or evangelical serv ices? Never 08/01/2022 Active [...] Answer Date Recorded Total Score 9 08/01/2022 [facility] of Occupat ional Health [...] as of this encounter Care Teams Professional Housing Consultant Relationship Specialty Start Date End Date Cisco Blanc DO [address] [facility], [place] [address] PCP - General Family Medicine 12/19/19 documented as of this encounter
--- OUTSIDE RECORDS SUMMARY | 2025-05-14 09:08 | XMS_ITS | Encounter Summary ---
Author Organization [employer] tem Address [id number] [address] [place] [address] Care Team Providers Care Jukebox Checker Name Role Phone Cisco Blanc Primary Care Provider Encounter Details Date Type Department Care Team (Late st Contact Info) Description 03/19/2024 Orders Only [facility] Internal Medicine - Family Medicine [address] [place] [phone] Ty uBrciaga DO [address] [place] [address] Rectal fissure (Primary Dx) Social History Tobacco [...] How often do you attend congregational or restorationist serv ices? Never 08/01/2022 Active [...] Score 21 03/15/2024 [facility] of Occupat ional Health - [...] Recorded Do you need help finding a [facility] career center and/or a training program? [...] fllow up with [facility] documented as of this encounter Visit Diagnoses Diagnosis Rectal fissure- Primary Anal fissure documented in this encounter Additional Health Concerns Assessment Noted Time PHQ-9 Depression Total Score: 21 024 4:01 PM EDT documented as of this encounter Care Teams Jukebox Checker Relationship Specialty Start Date End Date Cisco Blanc DO [address] [facility], [place] [address] PCP - General Family Medicine 12/19/19 documented as of this encounter
--- OUTSIDE RECORDS SUMMARY | 2025-05-14 09:08 | XMS_ITS | Encounter Summary ---
Author Organization [employer] tem Address [facility]-[id number] [address] [place] [address] Care Team Providers Care Media Marketing Specialist Name Role Phone Cisco Blanc DO Primary Care Provider [phone] Reason for Visit * Reason Comments Med Refill Encounter Details Date Type Department Care Team (Late st Contact Info) Description 08/30/2022 Refill [facility] Medicine - Family Medicine [address] [place] [address] Cisco Blanc DO [address], [place] [address] Social History Tobacco Use Types Packs/Day Years [...] How often do you attend gnosticism or taoism serv ices? Never 08/01/2022 Active Member of [...] Answer Date Recorded Total Score 9 08/01/2022 [facility] of Occupat ional Health [...] documented as of this encounter Care Teams Media Marketing Specialist Relationship Specialty Start Date End Date Cisco Blanc DO [address], [place] [address] PCP - General Family Medicine 12/19/19 documented as of this encounter
--- OUTSIDE RECORDS SUMMARY | 2025-05-14 09:08 | XMS_ITS | Encounter Summary ---
Author Organization [employer] tem Address [id number] [address] [place] [address] Care Team Providers Care Loan Interviewer Name Role Phone Cisco Blanc Primary Care Provider Encounter Details Date Type Department Care Team (Late st Contact Info) Description 03/08/2024 [facility]phone [facility] [address] [place] [address] Linda Marc CMA Social History Tobacco Use [...] How often do you attend mu-ism or mosque serv ices? Never 08/01/2022 Active [...] Answer Date Recorded Total Score 16 12/09/2023 [facility] of Occupat ional Health - [...] Recorded Do you need help finding a [employer] al career center and/or a training program? [...] to put a referral in for a Machine Fixer.He states his blood pressure is up and struggles with constipation. * Telephone Encounter - Cisco Blanc DO - 03/08/2024 1:44 PM EDT Okay I sent a referral into the clinical support associate in [place]. He is overdue for a wellness visit [...] as of this encounter Care Teams Loan Interviewer Relationship Specialty Start Date End Date Cisco Blanc G, DO [address] [facility], [place] [address] PCP - General Family Medicine 12/19/19 documented as of this encounter
--- OUTSIDE RECORDS SUMMARY | 2025-05-14 09:08 | XMS_ITS | Encounter Summary ---
Author Organization One[employer] tem Address [facility]-[id number] [address] [place] [address] Care Team Providers Care Reproducer Name Role Phone Cisco Blanc DO Primary Care Provider [phone] Reason for Visit * Reason Comments Med Refill Encounter Details Date Type Department Care Team (Late st Contact Info) Description 01/18/2023 Refill [facility] Internal Medicine - Family Medicine [address] [place] [address] Cisco Blanc DO [address], [facility] [place] [address] Social History Tobacco Use Types Packs/Day Years [...] How often do you attend restoration or christianity serv ices? Never 08/01/2022 Active [...] Answer Date Recorded Total Score 9 08/01/2022 [facility] of Occupat ional Health [...] documented as of this encounter Care Teams Reproducer Relationship Specialty Start Date End Date Cisco Blanc DO [address] [facility], [place] [address] PCP - General Family Medicine 12/19/19 documented as of this encounter
--- OUTSIDE RECORDS SUMMARY | 2025-05-14 09:08 | XMS_ITS | Encounter Summary ---
Author Organization [employer] tem Address [id number] [address] [place] [address] Care Team Providers Care Lpn Instructor Name Role Phone Cisco Blanc Primary Care Provider Encounter Details Date Type Department Care Team (Late st Contact Info) Description 04/03/2024 Orders Only [facility] Medicine - Family Medicine [address] [place] [address] Ref Prov, [place] [address] Social History Tobacco Use Types Packs/Day Years [...] How often do you attend baptist or shinto serv ices? Never 08/01/2022 Active Member of [...] Answer Date Recorded Total Score 21 03/15/2024 [facility] of Occupat [facility] - Occupational Stress Questionnaire Answer Date [...] family, patient needs to fllow up with [facility] documented as of this [...] documented as of this encounter Care Teams Lpn Instructor Relationship Specialty Start Date End Date Cisco Blanc DO [address] [facility], [place] [address] PCP - General Family Medicine 12/19/19 documented as of this encounter
--- OUTSIDE RECORDS SUMMARY | 2025-05-14 09:08 | XMS_ITS | Encounter Summary ---
Author Organization [employer] tem Address [facility] [place]-[id number] [address] [place] [address] Care Team Providers Care Melter Caster Name Role Phone Cisco Blanc DO Primary Care Provider [phone] Reason for Visit * Reason Comments Med Refill Encounter Details Date Type Department Care Team (Late st Contact Info) Description 08/17/2022 Refill [facility] Internal Medicine - Family Medicine [address] [place] [address] Cisco Blanc DO [address], [facility] [place] [address] Social History Tobacco Use Types Packs/Day Years [...] How often do you attend synagogue or adventism serv ices? Never 08/01/2022 Active [...] Answer Date Recorded Total Score 9 08/01/2022 [facility] of Occupat ional Health - [...] documented as of this encounter Care Teams Melter Caster Relationship Specialty Start Date End Date Cisco Blanc DO [address], [place] [address] PCP - General Family Medicine 12/19/19 documented as of this encounter
--- OUTSIDE RECORDS SUMMARY | 2025-05-14 09:08 | XMS_ITS | Encounter Summary ---
Author Organization [employer] tem Address [facility] [place]-[id number] [address] [place] [address] Care Team Providers Care Telesales Consultant Name Role Phone Cisco Blanc DO Primary Care Provider [phone] Reason for Visit * Reason Comments Med Refill Encounter Details Date Type Department Care Team (Late st Contact Info) Description 04/10/2024 Refill [facility] Medicine - Family Medicine [address] [place] [address] Cisco Blanc DO [address], [place] [address] Social History Tobacco Use Types Packs/Day Years [...] How often do you attend synagogue or mormon serv ices? Never 08/01/2022 Active [...] Answer Date Recorded Total Score 21 03/15/2024 [facility] of Occupat ional Health - [...] Do you need help finding a [facility] career center and/or a training program? [...] documented as of this encounter Care Teams Telesales Consultant Relationship Specialty Start Date End Date Cisco Blanc DO [address] [facility], [place] [address] PCP - General Family Medicine 12/19/19 documented as of this encounter
--- OUTSIDE RECORDS SUMMARY | 2025-05-14 09:08 | XMS_ITS | Encounter Summary ---
Author Organization [employer] tem Address [id number] [address] [place] [address] Care Team Providers Care Crusher Operator Name Role Phone Cisco Blanc DO Primary Care Provider [phone] Encounter Details Date Type Department Care Team (Late st Contact Info) Description 03/09/2024 Orders Only [facility] Internal Medicine - Family Medicine [address] [place] [address] Cisco Blanc DO [address], [facility] [address] Irritable bowel syndrome with constipation (Primary Dx); [...] How often do you attend yarsanism or muslim serv ices? Never 08/01/2022 Active [...] Answer Date Recorded Total Score 16 12/09/2023 [facility] of Occupat ional Health - Occupational Stress [...] Recorded Do you need help finding a [facility] career center and/or a [...] family, patient needs to fllow up with [facility] documented as of this encounter Visit Diagnoses Diagnosis Irritable bowel syndrome with constipation- Primary Irritable bowel syndrome Change in bowel habits Other symptoms involving digestive system documented in this encounter Additional Health Concerns Assessment Noted Time PHQ-9 Depression Total Score: 16 024 8:43 AM EDT documented as of this encounter Care Teams Crusher Operator Relationship Specialty Start Date End Date Cisco Blanc DO [address] [facility], [facility] [place] [address] PCP - General Family Medicine 12/19/19 documented as of this encounter
--- OUTSIDE RECORDS SUMMARY | 2025-05-14 09:08 | XMS_ITS | Encounter Summary ---
Author Organization [employer] tem Address [id number] [address] [place] [address] Care Team Providers Care Clay Dry Press Operator Name Role Phone Cisco Blanc DO Primary Care Provider [phone] Reason for Visit * Reason Comments Med Refill Encounter Details Date Type Department Care Team (Late st Contact Info) Description 05/12/2022 Refill [facility] Internal Medicine - Family Medicine [address] [place] [address] Michelle Francis APRN-CNP [address] [place] [address] Social History Tobacco Use Types Packs/Day Years [...] to fllow up with [facility] documented as of this encounter Visit Diagnoses Not on filedocumented in this encounter Care Teams Clay Dry Press Operator Relationship Specialty Start Date End Date Cisco Blanc DO [address], [address] [place], [place] PCP - General Family Medicine 12/19/19 documented as of this encounter
--- OUTSIDE RECORDS SUMMARY | 2025-05-14 09:11 | XMS_ITS | CCD ---
Author Organization [facility] Inform ion [facility] Care Team Providers Care Embalmer Assistant Name Role Phone OSINOWO, OSIYEMI Unavailable Unavailable OSINOWO, OSIYEMI Unavailable Unavailable NADERER, TYSON Unavailable Unavailable NADERER, TYSON Unavailable Unavailable Mary King Unavailable Tawnya Andre Unavailable CHAD, DR CICSO Thomason Primary Care Unavailable MARKER, DR JUARES Admitting Unavailable MARKER, DR JUARES Attending Unavailable MARKER, DR JUARES Consulting Unavailable ALANA MORROW Consulting Unavailable DO Cisco Bonilla Primary Care Provider [phone] MD Jennyfer Winkler Emergency Provider [phone] CISCO BONILLA Primary Care Physician JAME De Emergency Provider JENNYFER AUGUSTIN Admitting Unavailable JENNYFER AUGUSTIN Attending Unavailable CISCO BONILLA Primary Care Unavailable JENNYFER AUGUSTIN Attending Unavailable JENNYFER AUGUSTIN Referring Unavailable CISCO BONILLA Primary Care Unavailable CHAD, CISCO Thomason Primary Care Unavailable JEY NORRIS Attending Unavailable Cisco Bonilla DO Primary Care Provider Cisco Bonilla DO Primary Care Provider CISCO BONILLA Attending Unavailable CISCO BONILLA Referring Unavailable CARLOS ALBERTOLOKILEY, CISCO Thomason Primary Care Unavailable CARLOS ALBERTOLOKILEY, CISCO Thomason Attending Unavailable CARLOS ALBERTOLONG, CISCO Thomason Referring Unavailable FURLONG, CISCO Thomason Primary Care Unavailable FURLONGCISCO Attending Unavailable CARLOS ALBERTOLONGCISCO Referring Unavailable FURLONG, CISCO Thomason Primary Care Unavailable FURLONG, CISCO G Referring Unavailable FURLONG, CISCO G Primary Care Unavailable FURLONG, CISCO G Referring Unavailable FURLONG, CISCO G Primary Care Unavailable Tyson Tolliver MD Primary Care Provider Vivian Brady MD Unavailable Furlong DO, Cisco Primary Care Provider Ehsan Avina DO A Attending Provider [phone] Kailyn DO Ehsan A Other Provider [phone] Kailyn, Ehsan A Admitting Unavailable Kailyn, Ehsan [...] Allergies] Propensity to adverse reactions (disorder) [facility] Repository Medications Current Medications Medication Drug [...] daily as needed for anxiety Start: 12-10-2024 take 0.5 tablet by m outh once daily as needed for anxiety ALPRAZolam (XANAX) 2 mg tablet Indications: Anxiety Take 0.5 tablets (1 mg total) by mouth nightly as needed for anxiety. 12/10/2024 Active Start: 12-10-2024 ALPRAZolam (XA NAX) 2 mg tablet Take 1 mg by mouth. 12/10/2024 Active Start: 08-19-2019 End: 03-03-2024 take [...] constipation, # 10 supp, Refills(s) 0, Pharmacy: [facility] #[facility], 173, cm, 01/24/25 10:35:00 EDT, Height/Length Dosing, 86.3, kg, 01/24/25 10:35:00 EDT, Weight Dosing Start Date: 04/19/25 Status: Ordered Quantity: 10.0 Unit: supp Repeat number: 1 cloNIDine hydrochloride 0.1 mg oral tablet (20 sources) Central alpha-2 Adrenergic Agonist Start: 03-27-2025 End: 05-13-2025 take 1 tablet by mouth in the morning, then take 1 tablet by mouth at bedtime cloNIDine (CATAPRES) 0.1 mg tablet Take 1 tablet (0.1 mg total) by mouth in the morning and 1 tablet (0.1 mg total) before bedtime. 60 tablet 1 05/13/2025 Active Start: 10-15-2024 End: 03-22-2025 cloNIDine 0.1 mg tab Refills (s) 0 [...] rectal cream (20 sources) Corticosteroid Start: 12-20-2024 End: 05-13-2025 hydrocortisone-pra moxine (ANALPRAM-HC) 1-1 % rectal cream Indications: Anal fissure Insert 1 Application into the rectum in the morning and 1 Application before bedtime. 30 g 05/13/2025 Active Start: 12-20-2024 Pramoxine-Hydr ocortisone (ANALPRAM-HC) 1-1 % rectal cream 1 application by RECTAL route. 12/20/2024 Active Start: 12-14-2024 End: 12-20-2024 PRAMOSONE [...] Daily, # 30 tab(s), Refills(s) 4, Pharmacy: [facility] #72, 173, cm, 01/24/25 10:35:00 EDT, Height/Length Dosing, 86.3, kg, 01/24/25 10:35:00 EDT, Weight Dosing Start Date: 01/24/25 Status: Ordered Quantity: 30.0 Unit: tab(s) Repeat number: 5 Indications: Other specified disorders of muscle; Outlet dysfunction constipation; Constipation, unspecified; Psychological and behavioral factors associated with disorders or diseases classified elsewhere; Other psychoactive substance dependence, uncomplicated; Abdominal distension (gaseous); polyethylene glycol 3350 39284 mg powder for oral solution (20 sources) Osmotic Laxative Start: 03-27-2025 End: 05-13-2025 polyethylene glycol (MIRALAX) 17 gram/dose powder Take 17 g by mouth in the morning. 510 g 5 05/13/2025 Active Start: 09-11-2024 End: 03-22-2025 polyethylene glycol 3350 [...] bedtime) for constipation, 100 tab(s), Refill(s) 0, [facility], 173, cm, 01/24/25 10:35:00 EDT, Height/Length Dosing, 86.3, kg, 01/24/25 10:35:00 EDT, Weight Dosing Start Date: 04/19/25 Status: Ordered Quantity: 100.0 Unit: tab(s) Repeat number: 1 Start: 01-09-2025 Senna 8.6 mg o ral tablet 17.2 mg, 2 tab(s), Oral, Once a day (at bedtime) for constipation, 100 tab(s), Refill(s) 3, [facility], 173, cm, 01/09/25 12:52:00 EDT, Height/Length [...] powder for oral solution (20 sources) Start: 03-27-2025 End: 05-13-2025 take 3 g by mouth in the morning wheat dextrin (BENEFIBER SUGAR FREE, DEXTRIN,) 3 gram/4 gram powder Take 3 g by mouth in the morning. 152 g 5 05/13/2025 Active Start: 02-06-2025 End: 03-22-2025 BENEFIBER SUGAR FREE, [...] 2025 March 19, 2025 11:33am peg 3350-sod sulf,jluz-kpy-trc 178.7-7.3-0.5 gram recon soln (1 source) Start: 02-13-2024 End: 02-14-2024 peg 3350-sod sulf,lfoa-msp-cte 178.7-7.3-0.5 gram recon soln Indications: Change in [...] 21 03-09-2021 Chronic Anal and rectal conditions (10 sources) Anal fissure; Translations: [Anal fissure, unspecified] [...] dysfunction] Onset: 02-29-20 Episodic Other endocrine disorders (17 sources) Male hypogonadism; Translations: [Testicular hypofunction] Onset: [...] Episodic Other nutritional; endocrine; and metabolic disorders (17 sources) Overweight; Translations: [Overweight] Onset: 12-10-2024 12-10-2024 [...] RT 2Von 03-20-2025 XR foot RT 2V [facility] [place] [address] XRay Report Signed Patient: Chai Arnold MR#: [id number] 2 : 1970 Acct:[id number] Age/Sex: 54 / M ADM Date: 03/19/25 Loc: [place] Room: Type: [facility] Attending Dr: Ehsan Avina DO [...] Lisa M.D. 03/20/2025 8:49 AM Dictation Location: [place] [address] Transcribed By: MAGDIEL 03/20/2549 Dictated By: Dante Lisa II, MD 03/20/2549 Signed By: 03/20/25848 Normal [facility] Amphetamine Screen Ql (U)Ord ered By: Nirmal Bruno on 03-19-2025 Amphetamines Ql (U) Negative Negative [facility] Barbiturates [Presence] in U rine by Screen methodOrdered By: Nirmal Bruno on 03-19-2025 Barbiturates Screen Ql (U) Negative Negative [facility] Benzodiazepines Screen Ql (U )Ordered By: Nirmal Bruno on 03-19-2025 Benzodiazepines Ql (U) Positive High Negative [facility] Benzoylecgonine [Presence] i n Urine by Screen methodOrdered By: Nirmal Bruno on 03-19-2025 Benzoylecgonine Screen Ql (U) Negative Negative [facility] Cannabinoids [Presence] in U rine by Screen methodOrdered By: Nirmal Bruno on 03-19-2025 Cannabinoids Screen Ql (U) Negative Negative [facility] Comment on above: These are unconfirme d results and should not be used for legal purposes. Drug Cut-Off Concentration: AMPH 1000 ng/mL MAXIMILIAN 200 ng/mL NORA 200 ng/mL COCM 300 ng/mL OP 300 ng/mL PCP 25 ng/mL THC 20 ng/mL Drug Screen,Urineon 03-19-20 Amphetamine Screen,Urine Negative Normal Negative [facility] Comment on above: Performed By: #### U RDS #### [address] Barbiturate Screen,Urine Negative Normal Negative [facility] Comment on above: Performed By: #### U RDS #### [address] Benzodiazepines Screen,Urine Positive Normal Negative [facility] Comment on above: Performed By: #### U RDS #### [address] Cannabinoid Screen,Urine Negative Normal Negative [facility] Comment on above: Result Comment: Thes e are unconfirmed results and should not be used for legal purposes. Drug Cut-Off Concentration: AMPH 1000 ng/mL MAXIMILIAN 200 ng/mL NORA 200 ng/mL COCM 300 ng/mL OP 300 ng/mL PCP 25 ng/mL THC 20 ng/mL PERFORMED BY: [place] [address] PATHOLOGIST [employer]UE LINING DIPPER BROWN OLIVIER M.D. Performed By: #### U RDS #### [address] Cocaine Screen,Urine Negative Normal Negative [facility] Comment on above: Performed By: #### U RDS #### [place] [address] [place] Opiate Screen,Urine Positive Normal Negative [facility] Comment on above: Performed By: #### U RDS #### [address] Phencyclidine Screen,Urine Negative Normal Negative [facility] Comment on above: Performed By: #### U RDS #### [address] Opiates [Presence] in Urine by Screen methodOrdered By: Nirmal Bruno on 03-19-2025 Opiates Screen Ql (U) Positive High Negative [facility] Phencyclidine Screen Ql (U)O rdered By: Nirmal Bruno on 03-19-2025 Phencyclidine Ql (U) Negative Negative [facility] Alanine aminotransferase [En zymatic activity/volume] in Serum or PlasmaOrdered By: Ehsan Avina on 03-18-2025 ALT [Catalytic activity/Vol] 15 U/L 7-52 [facility] Comment on above: Performed By: #### C MP wRFX A1C, CBC #### [facility] [address] [place] [address] [place] Albumin [Mass/volume] in Ser um or Plasma by Bromocresol green (BCG) dye binding methoOrdered By: Ehsan Avina on 03-18-2025 Albumin BCG dye [Mass/Vol] 4.2 g/dL 3.5-5.7 [facility] Alkaline phosphatase [Enzyma tic activity/volume] in Serum or PlasmaOrdered By: Ehsan Avina on 03-18-2025 ALP [Catalytic activity/Vol] 116 U/L High 34-104 [facility] Comment on above: Result Comment: PERF ORMED BY: [place] [address] PATHOLOGIST FLUE LINING DIPPER BROWN OLIVIER M.D. Performed By: #### C MP wRFX A1C, CBC #### [place] [address] [place] Aspartate aminotransferase [ Enzymatic activity/volume] in Serum or PlasmaOrdered By: Ehsan Avina on 03-18-2025 AST [Catalytic activity/Vol] 20 U/L 13-39 [facility] Comment on above: Performed By: #### C MP wRFX A1C, CBC #### [place] [address] [place] Basophils [#/volume] in Bloo d by Automated countOrdered By: Ehsan Avina on 03-18-2025 Basophils (Bld) [#/Vol] 0.1 10*3/uL 0.0-0.2 [facility] Comment on above: Result Comment: PERF ORMED BY: [place] [address] PATHOLOGIST [employer] LINING DIPPER BROWN OLIVIER M.D. Performed By: #### C MP wRFX A1C, CBC #### [place] [address] [place] Basophils/100 leukocytes in Blood by Automated countOrdered By: Ehsan Avina on 03-18-2025 Basophils/100 WBC (Bld) 0.9 % . [facility] Comment on above: Performed By: #### C MP wRFX A1C, CBC #### [facility] [address] Bilirubin.total [Mass/volume ] in Serum or PlasmaOrdered By: Ehsan Avina on 03-18-2025 Bilirubin [Mass/Vol] 1.0 mg/dL 0.3-1.0 [facility] Comment on above: Performed By: #### C MP wRFX A1C, CBC #### [facility] [address] CMP with reflex to A1Con Albumin [Mass/Vol] 4.2 g/dL Normal 3.5-5.7 [facility] Comment on above: Performed By: #### C MP wRFX A1C, CBC #### [address] GFR/1.73 sq M.predicted MDRD (S/P/Bld) [Vol rate/Area] mL/min/{1.73_m2} Normal [facility] Comment on above: Performed By: #### C MP wRFX A1C, CBC #### [facility] [address] [place] [address] [place] Calcium [Mass/volume] in Ser um or PlasmaOrdered By: Ehsan Avina on 03-18-2025 Calcium [Mass/Vol] 9.2 mg/dL 8.6-10.3 [facility] Comment on above: Performed By: #### C MP wRFX A1C, CBC #### [facility] [address] [place] [address] [place] Carbon dioxide, total [Moles /volume] in Serum or PlasmaOrdered By: Ehsan Avina on 03-18-2025 CO2 [Moles/Vol] 29.7 mmol/L 21.0-31.0 [facility] Comment on above: Performed By: #### C MP wRFX A1C, CBC #### [facility] [address] [place] [address] [place] Chloride [Moles/volume] in S dereje or PlasmaOrdered By: Ehsan Avina on 03-18-2025 Chloride [Moles/Vol] 102 mmol/L 98-107 [facility] Comment on above: Performed By: #### C MP wRFX A1C, CBC #### [facility] [address] Complete Blood Count Auto Di ffon 03-18-2025 Mean Corpuscular HGB Conc 34.4 g/dL Normal 32.5-35.6 [facility] Comment on above: Performed By: #### C MP wRFX A1C, CBC #### [facility] [address] NRBC% 0.1 /100{WBC} Normal 0-0.5 [facility] Comment on above: Performed By: #### C MP wRFX A1C, CBC #### [address] White Blood Count 6.4 [CFU]/mL Normal 4.1-10.[address] [facility] Comment on above: Performed By: #### C MP wRFX A1C, CBC #### [address] Creatinine [Mass/volume] in Serum or PlasmaOrdered By: Ehsan Avina on 03-18-2025 Creatinine [Mass/Vol] 1.03 mg/dL 0.70-1.30 [facility] Comment on above: Performed By: #### C MP wRFX A1C, CBC #### [facility] [address] [place] [address] ECG 12 lead ECGon 03-18-2025 ECG 12 lead ECG [facility] [place] [address] [place] [address] Electrocardiograph Report Signed Patient: Chai Arnold MR#: [id number] 2 : 1970 Acct:[id number] Age/Sex: 54 / M ADM Date: 03/18/25 Loc: Room: Type: [facility] Attending Dr: Ehsan Avina DO Ordering [...] previous ECGs available Confirmed by Eduardo Torrez ([id number]) on 03/18/2025 1:40:16 PM Referred By: Electronically Signed By: Eduardo Torrez Transcribed By: MUS Signed By Eduardo Torrez MD 03/18/25 1340 Normal [facility] Eosinophils [#/volume] in Bl ood by Automated countOrdered By: Ehsan Avina on 03-18-2025 Eosinophils (Bld) [#/Vol] 0.9 10*3/uL High 0.0-0.45 [facility] Comment on above: Performed By: #### C MP wRFX A1C, CBC #### [facility] [address] [place] [address] [place] Eosinophils/100 leukocytes i n Blood by Automated countOrdered By: Ehsan Avina on 03-18-2025 Eosinophils/100 WBC (Bld) 14.4 % . [facility] Comment on above: Performed By: #### C MP wRFX A1C, CBC #### [facility] [address] Erythrocyte distribution wid th [Ratio] by Automated countOrdered By: Ehsan Avina on 03-18-2025 Erythrocyte distribution width (RBC) [Ratio] 12.9 % 12.0-14.8 [facility] Comment on above: Performed By: #### C MP wRFX A1C, CBC #### [facility] [address] [place] [address] [place] Erythrocytes [#/volume] in B lood by Automated countOrdered By: Ehsan Avina on 03-18-2025 RBC (Bld) [#/Vol] 4.85 10*6/uL 3.90-5.60 [facility] Comment on above: Performed By: #### C MP wRFX A1C, CBC #### [facility] [address] [place] [address] [place] Glucose [Mass/volume] in Ser um or PlasmaOrdered By: Ehsan Avina on 03-18-2025 Glucose [Mass/Vol] 88 mg/dL 70-100 [facility] Comment on above: Performed By: #### C MP wRFX A1C, CBC #### [facility] [address] [place] [address] [place] Hematocrit [Volume Fraction] of Blood by Automated countOrdered By: Ehsan Avina on 03-18-2025 Hematocrit (Bld) [Volume fraction] 46.4 % 38.8-50.0 [facility] Comment on above: Performed By: #### C MP wRFX A1C, CBC #### [facility] [address] Hemoglobin [Mass/volume] in BloodOrdered By: Ehsan Avina on 03-18-2025 Hemoglobin (Bld) [Mass/Vol] 16.0 g/dL 13.0-17.0 [facility] Comment on above: Performed By: #### C MP wRFX A1C, CBC #### [facility] [address] Leukocytes [#/volume] correc ernst for nucleated erythrocytes in Blood by Automated counOrdered By: Ehsan Avina on 03-18-2025 WBC corrected for nucl RBC Auto (Bld) [#/Vol] 6.4 10*3/uL 4.1-10.5 [facility] Leukocytes [#/volume] in Blo od by Automated countOrdered By: Ehsan Avina on 03-18-2025 WBC (Bld) [#/Vol] 6.4 10*3/uL 4.1-10.5 [facility] Comment on above: Performed By: #### C MP wRFX A1C, CBC #### [facility] [address] [place] [address] [place] Lymphocytes [#/volume] in Bl ood by Automated countOrdered By: Ehsan Avina on 03-18-2025 Lymphocytes (Bld) [#/Vol] 1.2 10*3/uL 1.00-4.8 [facility] Comment on above: Performed By: #### C MP wRFX A1C, CBC #### [facility] [address] [place] [address] [place] Lymphocytes/100 leukocytes i n Blood by Automated countOrdered By: Ehsan Avina on 03-18-2025 Lymphocytes/100 WBC (Bld) 18.9 % . [facility] Comment on above: Performed By: #### C MP wRFX A1C, CBC #### [facility] [address] [place] [address] [place] MCH [Entitic mass] by Automa ernst countOrdered By: Ehsan Avina on 03-18-2025 MCH (RBC) [Entitic mass] 32.9 pg 27.5-35.2 [facility] Comment on above: Performed By: #### C MP wRFX A1C, CBC #### [address] MCHC Auto (RBC) [Mass/Vol]Or dered By: Ehsan Avina on 03-18-2025 MCHC (RBC) [Mass/Vol] 34.4 g/dL 32.5-35.6 [facility] MCV [Entitic volume] by Auto mated countOrdered By: Ehsan Avina on 03-18-2025 MCV (RBC) [Entitic vol] 95.7 fL 83.5-101 F [facility] Comment on above: Performed By: #### C MP wRFX A1C, CBC #### [facility] [address] [place] [address] [place] Monocytes [#/volume] in Bloo d by Automated countOrdered By: Ehsan Avina on 03-18-2025 Monocytes (Bld) [#/Vol] 0.6 10*3/uL 0.0-0.8 [facility] Comment on above: Performed By: #### C MP wRFX A1C, CBC #### [facility] [address] [place] [address] [place] Monocytes/100 leukocytes in Blood by Automated countOrdered By: Ehsan Avina on 03-18-2025 Monocytes/100 WBC (Bld) 9.7 % . F [facility] Comment on above: Performed By: #### C MP wRFX A1C, CBC #### [facility] [address] Neutrophils [#/volume] in Bl ood by Automated countOrdered By: Ehsan Avina on 03-18-2025 Neutrophils (Bld) [#/Vol] 3.6 10*3/uL 1.8-7.7 [facility] Comment on above: Performed By: #### C MP wRFX A1C, CBC #### [facility] [address] Neutrophils/100 leukocytes i n Blood by Automated countOrdered By: Ehsan Avina on 03-18-2025 Neutrophils/100 WBC (Bld) 56.1 % . [facility] Comment on above: Performed By: #### C MP wRFX A1C, CBC #### [facility] [address] No Panel InformationOrdered By: Ehsan Avina on 03-18-2025 Estimated GFR (CKD-EPI) > 60.0 mL/Min [facility] Creatinine Clearance (Chem N/A [facility] Nucleated erythrocytes [Pres ence] in Blood by Automated countOrdered By: Ehsan Avina on 03-18-2025 Nucleated RBC Auto Ql (Bld) 0.1 /100{WBC} 0-0.5 [facility] Platelet mean volume [Entiti c volume] in Blood by Automated countOrdered By: Ehsan Avina on 03-18-2025 Platelet mean volume (Bld) [Entitic vol] 8.1 fL 6.6-10.1 [facility] Comment on above: Performed By: #### C MP wRFX A1C, CBC #### [facility] [address] [place] [address] [place] Platelets [#/volume] in Bloo d by Automated countOrdered By: Ehsan Avina on 03-18-2025 Platelets (Bld) [#/Vol] 213 10*3/uL 150-450 [facility] Comment on above: Performed By: #### C MP wRFX A1C, CBC #### [facility] [address] Potassium [Moles/volume] in Serum or PlasmaOrdered By: Ehsan Avina on 03-18-2025 Potassium [Moles/Vol] 4.1 mmol/L 3.5-5.1 [facility] Comment on above: Performed By: #### C MP wRFX A1C, CBC #### [facility] [address] [place] [address] Protein [Mass/volume] in Ser um or PlasmaOrdered By: Ehsan Avina on 03-18-2025 Protein [Mass/Vol] 6.9 g/dL 6.4-8.9 [facility] Comment on above: Performed By: #### C MP wRFX A1C, CBC #### [address] Serum globulin measurement b y calculation (mass/volume)Ordered By: Ehsan Avina on 03-18-2025 Globulin (S) [Mass/Vol] 2.7 g/dL [facility] Comment on above: Performed By: #### C MP wRFX A1C, CBC #### [facility] [address] [place] [address] Serum or plasma albumin/glob ulin mass ratioOrdered By: Ehsan Avina on 03-18-2025 Albumin/Globulin [Mass ratio] 1.6 {ratio} [facility] Comment on above: Performed By: #### C MP wRFX A1C, CBC #### [facility] [address] [place] [address] Serum or plasma anion gap de terminationOrdered By: Ehsan Avina on 03-18-2025 Anion gap [Moles/Vol] 9.4 mmol/L 6.0-15.0 [facility] Comment on above: Performed By: #### C MP wRFX A1C, CBC #### [facility] [address] [place] [address] Sodium [Moles/volume] in Ser um or PlasmaOrdered By: Ehsan Avina on 03-18-2025 Sodium [Moles/Vol] 137 mmol/L 136-145 [facility] Comment on above: Performed By: #### C MP wRFX A1C, CBC #### [facility] [address] [place] [address] [place] Urea nitrogen [Mass/volume] in Serum or PlasmaOrdered By: Ehsan Avina on 03-18-2025 Urea nitrogen [Mass/Vol] 9 mg/dL 03-15 [facility] Comment on above: Performed By: #### C MP wRFX A1C, CBC #### [facility] [address] [place] [address] [facility] X-ray reportOrdered By: Rodney Dawson on 03-13-2025 Study report [facility] [place] [facility] [place] [address] XRay Report Signed Patient: Chai Arnold MR#: [id number] : 1970 Acct:[id number] Age/Sex: 54 / M ADM Date: 5 Loc: [facility] [place] Room: Type: [facility] Attending Dr: Ehsan Avina DO Copies to: Ehsan Avina DO~ Ordering Provider: Ehsan Avina DO Date of Service: 03/13/25 XR/XR foot RT min 3V*: S92.351A - Displaced fracture of fifth metatarsal bone, r... 3 views right foot plain film COMPARISON: HISTORY: Status post right fifth metatarsal fracture ACUTE FINDINGS: Stable alignment DEGENERATIVE CHANGE: Unremarkable SOFT TISSUE FINDINGS: Unremarkable JOINT EFFUSION: None POSTOP CHANGES: None BONE MINERALIZATION: Adequate XR/XR foot RT min 3V* IMPRESSION: Stable findings Impression dictated by: Garrett Dawson M.D. 03/13/2025 10:25 PM Dictation Location: [place] [address] Transcribed By: [facility] 03/13/252224 Dictated By: Garrett Dawson DO 03/13/252220 Signed By: 03/13/252224 [facility] XR foot RT min 3V*on 025 XR foot RT min 3V* [facility] [place] [facility] [address] [place] [id number] XRay Report Signed Patient: Chai Arnold MR#: [id number] 2 : 1970 Acct:[id number] Age/Sex: 54 / M ADM Date: 03/13/25 Loc: [facility] [place] Room: Type: [facility] Attending Dr: Ehsan Avina DO Copies to: Ehsan Avina DO Ordering Provider: Ehsan Avina DO Date of Service: 03/13/25 XR/XR foot RT min 3V*: S92.351A - Displaced fracture of fifth metatarsal bone, r... 3 views right foot plain film COMPARISON: HISTORY: Status post right fifth metatarsal fracture ACUTE FINDINGS: Stable alignment DEGENERATIVE CHANGE: Unremarkable SOFT TISSUE FINDINGS: Unremarkable JOINT EFFUSION: None POSTOP CHANGES: None BONE MINERALIZATION: Adequate XR/XR foot RT min 3V* IMPRESSION: Stable findings Impression dictated by: Garrett Dawson M.D. 03/13/2025 10:25 PM Dictation Location: [employer] Transcribed By: [facility] 03/13/252224 Dictated By: Garrett Dawson DO 03/13/252220 Signed By: 03/13/252224 Normal [facility] Doni 03-07-2025 LOUISA Telephone (KENIA) ---- MIAHCHAI Karimi ([id number]) 1970 M Date Time Provider Department 03/07/25 LYDIA DRAKE During your visit today, we recorded the following information about you: Sterling Gonzalez 03/07/2025 1:33 PM Signed Chai Arnold - [phone] Patient contacted the office regarding the baclofen [...] Status:Closed by STERLING GONZALEZ on 03/07/25 Normal [facility] ANORECTAL MANOMET Maryanne 02-28-2025 PATIENT NAME: Chai Arnold PATIENT IDENTITY VERIFICATION COMPLETED USING TWO (2) IDENTIFIERS: Name and Date of confirmed by patient verbally. Referred by: Violette Maurer APRN.LIDA Reason for testing: constipation Ileoanal pouch: No SENSITIVE EXAMINATION CONSENT: The sensitive examination was discussed with the Patient or Patient's Authorized Drug Discovery Informatics Specialist. As applicable, any other physician, advance practice provider, medical student, or other health professional student that will be observing or involved in the sensitive examination for educational or training purposes was discussed with the Patient or Authorized Drug Discovery Informatics Specialist. The Patient or Authorized Drug Discovery Informatics Specialist has agreed to proceed with the sensitive examination. Bond Clerk offered:Patient accepts, visit chaperoned by Antonieta PAYNE,RN [...] MD Colon & Rectal Surgery [employer] ADULT [place] ANORECTAL MANOMET RYOrdered By: Aparna Guerra on 02-28-2025 [facility] Work Phone: Radiology Study observation (narrative) [facility] Work Phone: CNNURSEon 02-28-2025 [facility] Nurse Visit (KENIA) ---- CHAI ARNOLD ([id number]) 1970 M Date Time Provider Department 02/28/25 12:30 PM SAHIL BERGERON During your visit today, we recorded the following information about you: Referring Provider: VIOLETTE MAURER [[id number]] Allergies As of Date: 02/28/2025 (No Known Allergies) Date Reviewed: 02/28/2025 Reviewed by: Macey Meek OCCA - Fully Assessed Reason for Visit: Manometry [780] Visit Diagnosis:Pelvic floor dysfunction [M62.89] Order(s):[place]ULT [place] ANORECTAL MANOMETRY [[id number]] Order #: [id number] Prescriptions as of 02/28/2025 - ALPRAZolam (XANAX) [...] Encounter Status:Closed by SAHIL BERGERON on 02/28/25 [facility] Rosie 02-28-2025 TRENA Office Visit (KENIA) ---- CHAI ARNOLD ([id number]) 1970 M Date Time Provider Department 02/28/25 [...] a compounded preparation from a pharmacy in [place], and previously used hydrocortisone. He has not [...] retroflexed positi (more content not included)... Normal [facility] HISTORY PHYSICALon HISTORY PHYSICAL HNO ID: [id number] Author: LYDIA DRAKE PA-C Service: ? Author Type: Physician Military Source Operations Specialist Type: H&P Filed: 02/28/2025 13:41 Note Text: [...] a compounded preparation from a pharmacy in [place], and previously used hydrocortisone. He has not [...] No pa (more content not included)... Normal [facility] Doni 02-11-2025 [facility] Telephone ([facility]) ---- CHAI ARNOLD ([id number]) 1970 M Date Time Provider Department 02/11/25 TYRA ASHLEY [facility] During your visit today, we recorded the [...] Status:Closed by CHELLE CHRISTIANSON on 02/11/25 Normal [facility] Ambulatory Visit Summaryon 0 01-24-2025 Ambulatory [...] 10:45 AM EDT With: Vivian Brady MD A. Where: [facility] [address] [facility] [address] [place], [place] [address]- Medications What How Much When Why Instructions New plecanatide (Trulance 3 mg oral tablet) 1 Tablets By Mouth Every day Constipation Constipation by outlet dysfunction Pelvic floor dysfunction Bloating Stress-related physiological response affecting medical condition Drug dependence Refills: 4 Pickup at [facility] Unchanged amlodipine (amLODIPine 5 mg Tab) [...] physician if questions or concerns Pharmacy Information [facility]: [address] [place], [place] [phone] Allergies No Known Medication Allergies Problems Ongoing [...] choosing us for your care. Normal [facility] Gastroenterology Office/Clin ic Noteon 01-24-2025 Gastroenterology [...] He states he received a call from [facility] but he doesn't think they are going [...] Daily, # 30 tab(s), Refills(s) 4, Pharmacy: [facility], 173, cm, 01/24/25 10:35:00 EDT, Height/Length Dosing, 86.3, kg, 01/24/25 10:35:00 EDT, Weight Dosing 2. Constipation by outlet dysfunction (K59.02: Outlet dysfunction constipation) Ordered: plecanatide, 3 mg = 1 tab(s), Oral, Daily, # 30 tab(s), Refills(s) 4, Pharmacy: [facility], 173, cm, 01/24/25 10:35:00 EDT, Height/Length Dosing, 86.3, kg, 01/24/25 10:35:00 EDT, Weight Dosing 3. Pelvic floor dysfunction (M62.89: Other specified disorders of muscle) Ordered: plecanatide, 3 mg = 1 tab(s), Oral, Daily, # 30 tab(s), Refills(s) 4, Pharmacy: [facility], 173, cm, 01/24/25 10:35:00 EDT, Height/Length Dosing, 86.3, kg, 01/24/25 10:35:00 EDT, Weight Dosing 4. Bloating (R14.0: Abdominal distension (gaseous)) Ordered: plecanatide, 3 mg = 1 tab(s), Oral, Daily, # 30 tab(s), Refills(s) 4, Pharmacy: [facility], 173, cm, 01/24/25 10:35:00 EDT, Height/Length Dosing, 86.3, kg, 01/24/25 10:35:00 EDT, Weight Dosing 5. Stress-related physiological response affecting medical condition (F54: Psychological and behavioral factors associated with disorders or diseases classified elsewhere) Ordered: (more content not included)... Normal [facility] Comment on above: Result Comment: Elec tronically Signed By: Vivian Brady MD\.br\Date and Time Signed: 01/24/25 10:46 EDT Ambulatory Visit Summaryon 0 01-09-2025 Ambulatory Visit Summary Ambulatory Visit Summary CATALINA CHAI Barr :1970 Visit Date:01/09/2025 Ambulatory Visit Instructions Your [...] Someone Will Contact You Regarding These Appointments [facility] External Ambulatory Referral, Gastroenterology, 05/21/25 13:16:00 EDT, Constipation by outlet dysfunction Stress-related [...] choosing us for your care. Normal [facility] Gastroenterology Office/Clin ic Noteon 01-09-2025 Gastroenterology [...] Recorded (more content not included)... Normal [facility] Comment on above: Result Comment: Elec tronically Signed By: Caitlyn CHAVIS, Vivian Lance\.br\Date and Time Signed: 01/09/25 13:17 EDT COMPLETE BLOOD COUNTon 12-10 Erythrocyte distribution width (RBC) [Ratio] 13.5 % Normal 11.5-15.0 [facility] Comment on above: Performed By: #### C BC, CMP, 9598-4, 05313-3, 8687-1, TSHR #### [facility] ([id number]) [address], [address] [place] [address] Hematocrit (Bld) [Volume fraction] 48.2 % Normal 39-49 [facility] Comment on above: Performed By: #### C BC, CMP, 2498-4, 32220-4, 2857-1, TSHR #### [facility] ([id number]) [address], [facility] [address] [place] [address] Hemoglobin (Bld) [Mass/Vol] 16.1 g/dL Normal 13.0-17.0 [facility] Comment on above: Performed By: #### C BC, CMP, 2498-4, 72049-7, 2857-1, TSHR #### [facility] ([id number]) [address], [facility] [address] [place] [address] MCH (RBC) [Entitic mass] 31.9 pg Normal 27-34 [facility] Comment on above: Performed By: #### C BC, CMP, 2498-4, 14811-8, 2857-1, TSHR #### [facility] ([id number]) [address] [address] [place] [address] MCHC (RBC) [Mass/Vol] 33.4 g/dL Normal 32-36 [facility] Comment on above: Performed By: #### C BC, CMP, 2498-4, 84008-7, 2857-1, TSHR #### [facility] ([id number]) [address], [address] [place] [address] MCV (RBC) [Entitic vol] 96 fL Normal 80-100 [facility] Comment on above: Performed By: #### C BC, CMP, 2498-4, 50591-1, 2857-1, TSHR #### [facility] ([id number]) [address], [address] [place] [address] Platelet mean volume (Bld) [Entitic vol] 9.6 fL Normal 7-12 [facility] Comment on above: Performed By: #### C BC, CMP, 2498-4, 45897-3, 2857-1, TSHR #### [facility] ([id number]) [address], [address] [place] [address] Platelets (Bld) [#/Vol] 184 10*3/uL Normal 150-450 [facility] Comment on above: Performed By: #### C BC, CMP, 2498-4, 90808-9, 2857-1, TSHR #### [facility] ([id number]) [address], [facility] [address] [place] [address] RBC COUNT 5.04 X10E12/L Normal 4.10-5.70 [facility] Comment on above: Performed By: #### C BC, CMP, 2498-4, 07968-3, 2857-1, TSHR #### [facility] ([id number]) [address], [facility] [address] [place] [address] WBC (Bld) [#/Vol] 5.2 10*3/uL Normal 4.0-11.0 [facility] Comment on above: Performed By: #### C BC, CMP, 2498-4, 81922-0, 2857-1, TSHR #### [facility] ([id number]) [address], [address] [place] [address] COMPREHENSIVE METABOLIC PANE Vern 12-10-2024 Albumin [Mass/Vol] 4.5 g/dL Normal 3.2-5.3 [facility] Comment on above: Performed By: #### C BC, CMP, 2498-4, 18753-3, 2857-1, TSHR #### [facility] ([id number]) [address], [address] [place] [address] ALP [Catalytic activity/Vol] 101 U/L Normal 39-130 [facility] Comment on above: Performed By: #### C BC, CMP, 2498-4, 20072-0, 2857-1, TSHR #### [facility] ([id number]) [address], [address] [place] [address] ALT [Catalytic activity/Vol] 38 U/L Normal 0-40 [facility] Comment on above: Performed By: #### C BC, CMP, 2498-4, 47643-2, 2857-1, TSHR #### [facility] ([id number]) [address], [address] [place] [address] Anion gap [Moles/Vol] 11 mmol/L Normal 5-15 [facility] Comment on above: Performed By: #### C BC, CMP, 2498-4, 91776-8, 2857-1, TSHR #### [facility] ([id number]) [address], [address] [place] [address] AST [Catalytic activity/Vol] 28 U/L Normal 0-41 [facility] Comment on above: Performed By: #### C BC, CMP, 2498-4, 85445-2, 2857-1, TSHR #### [facility] ([id number]) [address], [address] [place] [address] Bilirubin [Mass/Vol] 0.6 mg/dL Normal 0.3-1.2 [facility] Comment on above: Performed By: #### C BC, CMP, 2498-4, 81045-2, 2857-1, TSHR #### [facility] ([id number]) [address], [address] [place] [address] Calcium [Mass/Vol] 9.6 mg/dL Normal 8.5-10.5 [facility] Comment on above: Performed By: #### C BC, CMP, 2498-4, 27792-3, 2857-1, TSHR #### [facility] ([id number]) [address], [address] [place] [address] Chloride [Moles/Vol] 105 mmol/L Normal 98-109 [facility] Comment on above: Performed By: #### C BC, CMP, 2498-4, 20063-3, 2857-1, TSHR #### [facility] ([id number]) [address], [address] [place] [address] CO2 [Moles/Vol] 26 mmol/L Normal 22-32 [facility] Comment on above: Performed By: #### C BC, CMP, 2498-4, 98683-7, 2857-1, TSHR #### [facility] ([id number]) [address] [address] Creatinine [Mass/Vol] 0.94 mg/dL Normal 0.60-1.30 [facility] Comment on above: Result Comment: METH OD TRACEABLE TO IDMS STANDARD Performed By: #### C BC, CMP, 2498-4, 40584-9, 2857-1, TSHR #### [facility] ([id number]) [address] [address] eGFR (CKD-EPI) NON-RACE DEPENDENT >90 Normal >59 [facility] Comment on above: Result Comment: Reported eGFR is based on the CKD-EPI 2020 equation that does not use a race coefficient. Performed By: #### C BC, CMP, 2498-4, 60169-2, 2857-1, TSHR #### [facility] ([id number]) [address], [address] [place] [address] Glucose [Mass/Vol] 86 mg/dL Normal 65-99 [facility] Comment on above: Performed By: #### C BC, CMP, 2498-4, 00762-2, 2857-1, TSHR #### [facility] ([id number]) [address], [address] [place] [address] Potassium [Moles/Vol] 4.2 mmol/L Normal 3.5-5.0 [facility] Comment on above: Performed By: #### Remberto BC, CMP, 2498-4, 77805-1, 2857-1, TSHR #### [facility] ([id number]) [address], [address] [place] [address] Protein [Mass/Vol] 7.4 g/dL Normal 6.0-8.0 [facility] Comment on above: Performed By: #### Remberto BC, CMP, 2498-4, 81529-6, 2857-1, TSHR #### [facility] ([id number]) [address], [address] [place] [address] Sodium [Moles/Vol] 142 mmol/L Normal 134-146 [facility] Comment on above: Performed By: #### Remberto BC, CMP, 2498-4, 38918-3, 2857-1, TSHR #### [facility] ([id number]) [address], [address] [place] [address] Urea nitrogen [Mass/Vol] 13 mg/dL Normal 5-23 [facility] Comment on above: Performed By: #### Remberto BC, CMP, 2498-4, 22726-4, 2857-1, TSHR #### [facility] ([id number]) [address], [address] [place] [address] IRONon 12-10-2024 Iron [Mass/Vol] 184 ug/dL Normal 50-212 [facility] Comment on above: Performed By: #### C BC, CMP, 2498-4, 40030-5, 2857-1, TSHR #### [facility] ([id number]) [address], [address] [place] [address] Lipid 1996 panelon Cholesterol [Mass/Vol] 183 mg/dL Normal 150-200 [facility] Comment on above: Performed By: #### Remberto BC, CMP, 2498-4, 14283-1, 2857-1, TSHR #### [facility] ([id number]) [address], [address] [place] [address] Cholesterol in HDL [Mass/Vol] 38 mg/dL Low >39 [facility] Comment on above: Result Comment: HDL <40 mg/dL - High Risk HDL > or = 40mg/dL- Desirable HDL >60 mg/dL - Negative Risk Performed By: #### C BC, CMP, 2498-4, 87491-5, 2857-1, TSHR #### [facility] ([id number]) [address], [address] [place] [address] Cholesterol in LDL [Mass/Vol] 121 mg/dL Normal <130 [facility] Comment on above: Result Comment: LDL <100 mg/dL - Desirable LDL >160 mg/dL - High Risk Performed By: #### Remberto BC, CMP, 2498-4, 99293-8, 2857-1, TSHR #### [facility] ([id number]) [address], [address] [place] [address] Cholesterol in VLDL [Mass/Vol] 24 mg/dL Normal 0-30 [facility] Comment on above: Performed By: #### Remberto BC, CMP, 2498-4, 64799-8, 2857-1, TSHR #### [facility] ([id number]) [address], [address] [place] [address] CHOLESTEROL:HDL 4.8 Normal 1.0-5.0 [facility] Comment on above: Performed By: #### C BC, CMP, 2498-4, 53085-5, 2857-1, TSHR #### [facility] ([id number]) [address] [address] Triglyceride [Mass/Vol] 119 mg/dL Normal 27-150 [facility] Comment on above: Performed By: #### C BC, CMP, 2498-4, 11196-5, 2857-1, TSHR #### [facility] ([id number]) [address] [address] Prostate specific Ag [Mass/V ol]on 12-10-2024 PSA SCREEN 0.57 ng/mL Normal 0.00-4.00 [facility] Comment on above: Result Comment: The method used for this test is [employer] DXI chemiluminescent immunoassay. Values obtained by different assay methods cannot be used interchangeably. Performed By: #### C BC, [facility], 2498-4, 16662-5, 2857-1, TSHR #### [facility] ([id number]) [address] [address] TSH WITH REFLEXon 12-10-2024 TSH 1.34 uIU/mL Normal 0.49-4.67 [facility] Comment on above: Performed By: #### C BC, [facility], 2498-4, 59922-4, 2857-1, TSHR #### [facility] ([id number]) [address] [address] COMPLETE BLOOD COUNTon 09-11 Erythrocyte distribution width (RBC) [Ratio] 13.4 % Normal 11.5-15.0 [facility] Comment on above: Performed By: #### C BC, CMP, 2857-1, TSHR #### [facility] ([id number]) [address] [address] Hematocrit (Bld) [Volume fraction] 47.4 % Normal 39-49 [facility] Comment on above: Performed By: #### Remberto CRANDALL CMP, 2857-1, TSHR #### [facility] ([id number]) [address], [address] [place] [address] Hemoglobin (Bld) [Mass/Vol] 16.4 g/dL Normal 13.0-17.0 [facility] Comment on above: Performed By: #### Remberto CRANDALL CMP, 2857-1, TSHR #### [facility] ([id number]) [address], [facility] [address] [place] [address] MCH (RBC) [Entitic mass] 32.4 pg Normal 27-34 [facility] Comment on above: Performed By: #### Remberto CRANDALL CMP, 2857-1, TSHR #### [facility] ([id number]) [address], [address] [place] [address] MCHC (RBC) [Mass/Vol] 34.6 g/dL Normal 32-36 [facility] Comment on above: Performed By: #### Remberto CRANDALL CMP, 2857-1, TSHR #### [facility] ([id number]) [address], [address] [place] [address] MCV (RBC) [Entitic vol] 94 fL Normal 80-100 [facility] Comment on above: Performed By: #### Remberto CRANDALL CMP, 2857-1, TSHR #### [facility] ([id number]) [address], [address] [place] [address] Platelet mean volume (Bld) [Entitic vol] 9.4 fL Normal 7-12 [facility] Comment on above: Performed By: #### Remberto BC, CMP, 2857-1, TSHR #### [facility] ([id number]) [address], [address] [place] [address] Platelets (Bld) [#/Vol] 235 10*3/uL Normal 150-450 [facility] Comment on above: Performed By: #### Remberto BC, CMP, 2857-1, TSHR #### [facility] ([id number]) [address], [address] [place] [address] RBC COUNT 5.06 X10E12/L Normal 4.10-5.70 [facility] Comment on above: Performed By: #### Remberto BC, CMP, 2857-1, TSHR #### [facility] ([id number]) [address], [facility] [address] [place] [address] WBC (Bld) [#/Vol] 7.0 10*3/uL Normal 4.0-11.0 [facility] Comment on above: Performed By: #### Remberto BC, CMP, 2857-1, TSHR #### [facility] ([id number]) [address], [address] [place] [address] COMPREHENSIVE METABOLIC PANE Vern 09-11-2024 Albumin [Mass/Vol] 4.5 g/dL Normal 3.2-5.3 [facility] Comment on above: Performed By: #### Remberto BC, CMP, 2857-1, TSHR #### [facility] ([id number]) [address], [address] [place] [address] ALP [Catalytic activity/Vol] 133 U/L High 39-130 [facility] Comment on above: Performed By: #### Remberto BC, CMP, 2857-1, TSHR #### [facility] ([id number]) [address], [address] [place] [address] ALT [Catalytic activity/Vol] 20 U/L Normal 0-40 [facility] Comment on above: Performed By: #### Remberto BC, CMP, 2857-1, TSHR #### [facility] ([id number]) [address], [address] [place] [address] Anion gap [Moles/Vol] 10 mmol/L Normal 5-15 [facility] Comment on above: Performed By: #### Remberto CRANDALL CMP, 2857-1, TSHR #### [facility] ([id number]) [address], [address] [place] [address] AST [Catalytic activity/Vol] 26 U/L Normal 0-41 [facility] Comment on above: Performed By: #### Remberto CRANDALL CMP, 2857-1, TSHR #### [facility] ([id number]) [address], [address] [place] [address] Bilirubin [Mass/Vol] 0.8 mg/dL Normal 0.3-1.2 [facility] Comment on above: Performed By: #### Remberto CRANDALL CMP, 2857-1, TSHR #### [facility] ([id number]) [address], [address] [place] [address] Calcium [Mass/Vol] 9.6 mg/dL Normal 8.5-10.5 [facility] Comment on above: Performed By: #### Remberto CRANDALL CMP, 2857-1, TSHR #### [facility] ([id number]) [address], [address] [place] [address] Chloride [Moles/Vol] 103 mmol/L Normal 98-109 [facility] Comment on above: Performed By: #### Remberto CRANDALL CMP, 2857-1, TSHR #### [facility] ([id number]) [address], [address] [place] [address] CO2 [Moles/Vol] 27 mmol/L Normal 22-32 [facility] Comment on above: Performed By: #### Remberto CRANDALL CMP, 2857-1, TSHR #### [facility] ([id number]) [address], [address] [place] [address] Creatinine [Mass/Vol] 1.05 mg/dL Normal 0.60-1.30 [facility] Comment on above: Result Comment: METH OD TRACEABLE TO IDMS STANDARD Performed By: #### Remberto CRANDALL CMP, 2857-1, TSHR #### [facility] ([id number]) [address], [address] [place] [address] GFR/1.73 sq M.predicted among non-blacks MDRD (S/P/Bld) [Vol rate/Area] 83 mL/min/{1.73_m2} Normal >59 [facility] Comment on above: Result Comment: Reported eGFR is based on the CKD-EPI 2020 equation that does not use a race coefficient. Performed By: #### Remberto CRANDALL CMP, 2857-1, TSHR #### [facility] ([id number]) [address], [address] [place] [address] Glucose [Mass/Vol] 87 mg/dL Normal 65-99 [facility] Comment on above: Performed By: #### Remberto CRANDALL CMP, 2857-1, TSHR #### [facility] ([id number]) [address] [address] [place] [address] Potassium [Moles/Vol] 3.9 mmol/L Normal 3.5-5.0 [facility] Comment on above: Performed By: #### Remberto CRANDALL CMP, 2857-1, TSHR #### [facility] ([id number]) [address] [address] [place] [address] Protein [Mass/Vol] 7.3 g/dL Normal 6.0-8.0 [facility] Comment on above: Performed By: #### Remberto CRANDALL CMP, 2857-1, TSHR #### [facility] ([id number]) [address], [address] [place] [address] Sodium [Moles/Vol] 140 mmol/L Normal 134-146 [facility] Comment on above: Performed By: #### Remberto CRANDALL CMP, 2857-1, TSHR #### [facility] ([id number]) [address], [address] [place] [address] Urea nitrogen [Mass/Vol] 6 mg/dL Normal 5-23 [facility] Comment on above: Performed By: #### C BC, CMP, 2857-1, TSHR #### [facility] ([id number]) [address], [address] [place] [address] Prostate specific Ag [Mass/V ol]on 09-11-2024 PSA SCREEN 0.71 ng/mL Normal 0.00-4.00 [facility] Comment on above: Result Comment: The method used for this test is [employer] DXI chemiluminescent immunoassay. Values obtained by different assay methods cannot be used interchangeably. Performed By: #### C BC, CMP, 2857-1, TSHR #### [facility] ([id number]) [address], [address] [place] [address] TSH WITH REFLEXon 09-11-2024 TSH 1.29 uIU/mL Normal 0.49-4.67 [facility] Comment on above: Performed By: #### C BC, CMP, 2857-1, TSHR #### [facility] ([id number]) [address], [address] [address] CBC AND AUTO DIFFon 05-15-20 24 ABSOLUTE BASOPHIL 0.1 X10E9/L Normal 0.0-0.2 [facility] Comment on above: Performed By: #### C BCA, CMP, 3040-3, 77845-8 #### [facility] ([id number]) [address] [place] [address] 77999 ABSOLUTE NEUTROPHIL 5.7 X10E9/L Normal 1.5-6.6 [facility] Comment on above: Performed By: #### C BCA, CMP, 3040-3, 50728-6 #### [facility] ([id number]) [address] [place] [address] 37644 Basophils/100 WBC (Bld) 0.7 % Normal [facility] Comment on above: Performed By: #### C ARASH CMP, 0-3, 81736-4 #### [facility] ([id number]) [address] [place] [address] 75662 Eosinophils (Bld) [#/Vol] 0.4 10*3/uL Normal 0.0-0.[address] [facility] Comment on above: Performed By: #### C ARASH, CMP, 0-3, 77131-0 #### [facility] ([id number]) [address] [place] [address] 73552 Eosinophils/100 WBC (Bld) 4.9 % Normal [facility] Comment on above: Performed By: #### Remberto ANTOINE CMP, 3, 85125-9 #### [facility] ([id number]) [address] [place] [address] 49744 Erythrocyte distribution width (RBC) [Ratio] 12.3 % Normal 11.5-15.[address] [facility] Comment on above: Performed By: #### Remberto ANTOINE, CMP, 0-3, 16001-8 #### [facility] ([id number]) [address] [place] [address] 11087 Hematocrit (Bld) [Volume fraction] 41.8 % Normal 39-[address] [facility] Comment on above: Performed By: #### Remberto ANTOINE, CMP, 0-3, 08873-5 #### [facility] ([id number]) [address] [place] [address] 04517 Hemoglobin (Bld) [Mass/Vol] 15.1 g/dL Normal 13.0-17.[address] [facility] Comment on above: Performed By: #### Remberto ANTOINE, CMP, 0-3, 08947-9 #### [facility] ([id number]) [address] [place] [address] 92083 Lymphocytes (Bld) [#/Vol] 1.4 10*3/uL Normal 1.0-3.[address] [facility] Comment on above: Performed By: #### C ARASH, CMP, 3040-3, 57060-0 #### [facility] ([id number]) [address] [place] [address] 76094 Lymphocytes/100 WBC (Bld) 17.3 % Normal [facility] Comment on above: Performed By: #### C ARASH, CMP, 3040-3, 54711-1 #### [facility] ([id number]) [address] [place] [address] 30253 MCH (RBC) [Entitic mass] 32.3 pg Normal 27-[address] [facility] Comment on above: Performed By: #### Remberto ANTOINE, CMP, 3040-3, 09322-3 #### [facility] ([id number]) [address] [place] [address] 58044 MCHC (RBC) [Mass/Vol] 36.0 g/dL Normal 32-36 [facility] Comment on above: Performed By: #### C ARASH, CMP, 3040-3, 79621-2 #### [facility] ([id number]) [address] [place] [address] 75338 MCV (RBC) [Entitic vol] 90 fL Normal 80-100 [facility] Comment on above: Performed By: #### C ARASH, CMP, 3040-3, 87576-9 #### [facility] ([id number]) [address] [place] [address] 56427 Monocytes (Bld) [#/Vol] 0.6 10*3/uL Normal 0-0.[address] [facility] Comment on above: Performed By: #### Remberto ANTOINE, CMP, 3040-3, 64694-4 #### [facility] ([id number]) [address] [place] [address] 83978 Monocytes/100 WBC (Bld) 7.6 % Normal [facility] Comment on above: Performed By: #### C BCA, CMP, 3040-3, 08974-5 #### [facility] ([id number]) [address] [place] [address] 83037 Neutrophils/100 WBC (Bld) 69.5 % Normal [facility] Comment on above: Performed By: #### C ARASH, CMP, 3040-3, 43279-8 #### [facility] ([id number]) [address] [place] [address] 65207 Platelet mean volume (Bld) [Entitic vol] 8.2 fL Normal 7-[address] [facility] Comment on above: Performed By: #### C BCA, CMP, 3040-3, 37471-8 #### [facility] ([id number]) [address] [place] [address] 49300 Platelets (Bld) [#/Vol] 254 10*3/uL Normal 150-[address] [facility] Comment on above: Performed By: #### C BCA, CMP, 3040-3, 06736-9 #### [facility] ([id number]) [address] [place] [address] 69841 RBC COUNT 4.66 X10E12/L Normal 4.10-5.[address] [facility] Comment on above: Performed By: #### C BCA, CMP, 3040-3, 39595-9 #### [facility] ([id number]) [address] [place] [address] 05622 WBC (Bld) [#/Vol] 8.1 10*3/uL Normal 4.0-11.0 [facility] Comment on above: Performed By: #### C BCA, CMP, 3040-3, 96287-8 #### [facility] ([id number]) [address] [place] [address] 94828 COMPREHENSIVE METABOLIC PANE Vern 05-15-2024 Albumin [Mass/Vol] 4.5 g/dL Normal 3.2-5.3 [facility] Comment on above: Performed By: #### C BCA, CMP, 3040-3, 82588-8 #### [facility] ([id number]) [address] [place] [address] 46207 ALP [Catalytic activity/Vol] 105 U/L Normal 39-[address] [facility] Comment on above: Performed By: #### C BCA, CMP, 3040-3, 45813-4 #### [facility] ([id number]) [address] [place] [address] 42828 ALT [Catalytic activity/Vol] 33 U/L Normal 0-[address] [facility] Comment on above: Performed By: #### C BCA, CMP, 3040-3, 32925-6 #### [facility] ([id number]) [address] [place] [address] 41929 Anion gap [Moles/Vol] 9 mmol/L Normal 5-15 [facility] Comment on above: Performed By: #### C BCA, CMP, 3040-3, 94657-0 #### [facility] ([id number]) [address] [place] [address] 60765 AST [Catalytic activity/Vol] 29 U/L Normal 0-[address] [facility] Comment on above: Performed By: #### C BCA, CMP, 3040-3, 74494-5 #### [facility] ([id number]) [address] [place] [address] 11769 Bilirubin [Mass/Vol] 0.9 mg/dL Normal 0.3-1.2 [facility] Comment on above: Performed By: #### C BCA, CMP, 3040-3, 13531-3 #### [facility] ([id number]) [address] [place] [address] 94833 Calcium [Mass/Vol] 9.1 mg/dL Normal 8.5-10.5 [facility] Comment on above: Performed By: #### C BCA, CMP, 3040-3, 30882-1 #### [facility] ([id number]) [address] [place] [address] 02814 Chloride [Moles/Vol] 96 mmol/L Low 98-109 [facility] Comment on above: Performed By: #### C ARASH, CMP, 3040-3, 47988-1 #### [facility] ([id number]) [address] [place] [address] 88147 CO2 [Moles/Vol] 24 mmol/L Normal 22-[address] [facility] Comment on above: Performed By: #### C ARASH, CMP, 3040-3, 40136-1 #### [facility] ([id number]) [address] [place] [address] 14395 Creatinine [Mass/Vol] 0.91 mg/dL Normal 0.70-1.20 [facility] Comment on above: Result Comment: METH OD TRACEABLE TO IDMS STANDARD Performed By: #### C ARASH, CMP, 3040-3, 68726-3 #### [facility] ([id number]) [address] [place] [address] 05706 eGFR (CKD-EPI) NON-RACE DEPENDENT >90 Normal >[address] [facility] Comment on above: Result Comment: Reported eGFR is based on the CKD-EPI 2020 equation that does not use a race coefficient. Performed By: #### C BCA, CMP, 3040-3, 02761-3 #### [facility] ([id number]) [address] [place] [address] 63875 Glucose [Mass/Vol] 97 mg/dL Normal 65-99 [facility] Comment on above: Performed By: #### C ALEXANDRI[place] ANTOINE, 3040-3, 67130-1 #### [facility] ([id number]) [address] [place] [address] 24994 Potassium [Moles/Vol] 3.2 mmol/L Low 3.5-5.0 [facility] Comment on above: Performed By: #### C A[place] ANTOINE, 3040-3, 62391-6 #### [facility] ([id number]) [address] [place] [address] 96077 Protein [Mass/Vol] 7.2 g/dL Normal 6.0-8.0 [facility] Comment on above: Performed By: #### Remberto ANTOINE CMP, 3040-3, 47346-5 #### [facility] ([id number]) [address] [place] [address] 95064 Sodium [Moles/Vol] 129 mmol/L Low 134-146 [facility] Comment on above: Performed By: #### C ARASH [facility], 3040-3, 87083-9 #### [facility] ([id number]) [address] [place] [address] 84753 Urea nitrogen [Mass/Vol] 15 mg/dL Normal 5-[address] [facility] Comment on above: Performed By: #### C ARASH, CMP, 3040-3, 16927-6 #### [facility] ([id number]) [address] [place] [address] 46163 LIPASEon 05-15-2024 Lipase [Catalytic activity/Vol] 37 U/L Normal 17-[address] [facility] Comment on above: Performed By: #### C ARASH, CMP, 3040-3, 80618-1 #### [facility] ([id number]) [address] [place] [address] 18867 Lactate (P cherie) [Moles/Vol]o n 05-15-2024 LACTATE W/REFLEX 1.0 mmol/L Normal 0.4-2.0 [facility] Comment on above: Result Comment: Result did not trigger repeat Lactate, re-order if needed. Performed By: #### 3 2133-1 #### [facility] ([id number]) [address] [place] [address] 53657 Troponin I.cardiac High sens itivity method [Mass/Vol]on 05-15-2024 1 HOUR TROP I, HIGH SENSITIVITY 3 ng/L Normal <[address] [facility] Comment on above: Performed By: #### 8 9579-7 #### [facility] ([id number]) [address] [place] [address] 56623 TROPONIN I, HIGH SENSITIVITY 3 ng/L Normal <[address] [facility] Comment on above: Performed By: #### C BCA, CMP, 3040-3, 99782-3 #### [facility] ([id number]) [address] [place] [address] 85448 Bacteria [Presence] in Urine by AutomatedOrdered By: Nish Davidson on 03-03-2024 Bacteria Auto Ql (U) None seen [HPF] None Seen [facility] Basophils Auto (Bld) [#/Vol] Ordered By: James De on 03-03-2024 Basophils (Bld) [#/Vol] 0.0 10*3/uL 0.0-0.2 [facility] Basophils/100 WBC Auto (Bld) Ordered By: James De on 03-03-2024 Basophils/100 WBC (Bld) 0.4 % . F [facility] Bilirubin Test strip Ql (U)O rdered By: Nish Davidson on 03-03-2024 Bilirubin Ql (U) Negative Negative [facility] Calcium [Mass/volume] in Ser um or PlasmaOrdered By: James De on 03-03-2024 Calcium [Mass/Vol] 9.5 mg/dL 8.6-10.3 [facility] Carbon dioxide, total [Moles /volume] in Serum or PlasmaOrdered By: James De on 03-03-2024 CO2 [Moles/Vol] 25.3 mmol/L 21.0-31.0 [facility] Chloride [Moles/volume] in S dereje or PlasmaOrdered By: James De on 03-03-2024 Chloride [Moles/Vol] 102 mmol/L 98-107 [facility] Color Auto (U)Ordered By: Dimitry Davidson on 03-03-2024 Color (U) Yellow Yellow [facility] Creatinine [Mass/volume] in Serum or PlasmaOrdered By: James De on 03-03-2024 Creatinine [Mass/Vol] 1.18 mg/dL 0.70-1.30 [facility] Eosinophils Auto (Bld) [#/Vo l]Ordered By: James De on 03-03-2024 Eosinophils (Bld) [#/Vol] 0.2 10*3/uL 0.0-0.45 [facility] Eosinophils/100 WBC Auto (Bl d)Ordered By: James De on 03-03-2024 Eosinophils/100 WBC (Bld) 2.6 % . [facility] Epithelial cells.squamous [# /area] in Urine sediment by Automated countOrdered By: Nish Davidson on 03-03-2024 Epithelial cells.squamous Auto (Urine sed) [#/Area] 1-2 [HPF] 0-2 [facility] Erythrocyte distribution wid th Auto (RBC) [Ratio]Ordered By: James De on 03-03-2024 Erythrocyte distribution width (RBC) [Ratio] 12.6 % 12.0-14.8 [facility] Erythrocytes [#/area] in Uri ne sediment by Automated countOrdered By: Nish Davidson on 03-03-2024 RBC Auto (Urine sed) [#/Area] None seen [HPF] 0-4 [facility] Glucose [Mass/volume] in Ser um or PlasmaOrdered By: James De on 03-03-2024 Glucose [Mass/Vol] 83 mg/dL 70-100 [facility] Comment on above: ADA recommended refe rence rangeRandom Glucose Reference Range is dependent on time and content of last meal. Glucose of more than 200 mg/dL in a nonstressed, ambulatory subject supports the diagnosis of Diabetes Mellitus. Glucose [Mass/volume] in Uri ne by Test stripOrdered By: Nish Davidson on 03-03-2024 Glucose Test strip (U) [Mass/Vol] Normal mg/dL Normal [facility] Hematocrit Auto (Bld) [Volum e fraction]Ordered By: James De on 03-03-2024 Hematocrit (Bld) [Volume fraction] 52.6 % High 38.8-50.0 [facility] Hemoglobin Test strip Ql (U) Ordered By: Nish Davidson on 03-03-2024 Hemoglobin Ql (U) Negative Negative [facility] Hemoglobin [Mass/volume] in BloodOrdered By: James De on 03-03-2024 Hemoglobin (Bld) [Mass/Vol] 18.5 g/dL High 13.0-17.0 [facility] Hyaline casts [#/area] in Ur ine sediment by Automated countOrdered By: Nish Davidson on 03-03-2024 Hyaline casts Auto (Urine sed) [#/Area] 0-8 [LPF] 0-8 [facility] Ketones Test strip Ql (U)Ord ered By: Nish Davidson on 03-03-2024 Ketones Ql (U) 2+ High Negative [facility] Leukocyte esterase [Presence ] in Urine by Test stripOrdered By: Nish Davidson on 03-03-2024 Leukocyte esterase Test strip Ql (U) Negative Negative [facility] Leukocytes [#/area] in Urine sediment by Automated countOrdered By: Nish Davidson on 03-03-2024 WBC Auto (Urine sed) [#/Area] 1-2 [HPF] 0-4 [facility] Leukocytes [#/volume] correc ernst for nucleated erythrocytes in Blood by Automated counOrdered By: James De on 03-03-2024 WBC corrected for nucl RBC Auto (Bld) [#/Vol] 9.0 10*3/uL 4.1-10.5 [facility] Lymphocytes Auto (Bld) [#/Vo l]Ordered By: James De on 03-03-2024 Lymphocytes (Bld) [#/Vol] 1.2 10*3/uL 1.00-4.8 [facility] Lymphocytes/100 WBC Auto (Bl d)Ordered By: James De on 03-03-2024 Lymphocytes/100 WBC (Bld) 13.4 % . [facility] MCH Auto (RBC) [Entitic mass ]Ordered By: James De on 03-03-2024 MCH (RBC) [Entitic mass] 32.8 pg 27.5-35.2 [facility] MCHC Auto (RBC) [Mass/Vol]Or dered By: James De on 03-03-2024 MCHC (RBC) [Mass/Vol] 35.1 g/dL 32.5-35.6 [facility] MCV Auto (RBC) [Entitic vol] Ordered By: James De on 03-03-2024 MCV (RBC) [Entitic vol] 93.4 fL 83.5-101 F [facility] Monocyte distribution width [Entitic volume] in Blood by AutomatedOrdered By: James De on 03-03-2024 Monocyte distribution width Auto (Bld) [Entitic vol] 17.08 % 0.00-20.00 [facility] Monocytes Auto (Bld) [#/Vol] Ordered By: James De on 03-03-2024 Monocytes (Bld) [#/Vol] 0.8 10*3/uL 0.0-0.8 [facility] Monocytes/100 WBC Auto (Bld) Ordered By: James De on 03-03-2024 Monocytes/100 WBC (Bld) 8.7 % . F [facility] Mucus [Presence] in Urine by AutomatedOrdered By: Nish Davidson on 03-03-2024 Mucus Auto Ql (U) 1+ [LPF] Abnormal [facility] Neutrophils Auto (Bld) [#/Vo l]Ordered By: James De on 03-03-2024 Neutrophils (Bld) [#/Vol] 6.7 10*3/uL 1.8-7.7 [facility] Neutrophils/100 WBC Auto (Bl d)Ordered By: James De on 03-03-2024 Neutrophils/100 WBC (Bld) 74.9 % . [facility] Nitrite Test strip Ql (U)Ord ered By: Nish Davidson on 03-03-2024 Nitrite Ql (U) Negative Negative [facility] No Panel InformationOrdered By: James De on 03-03-2024 Estimated GFR (CKD-EPI) > 60.0 mL/Min [facility] Creatinine Clearance (Chem 68.43 [facility] Nucleated erythrocytes [Pres ence] in Blood by Automated countOrdered By: James De on 03-03-2024 Nucleated RBC Auto Ql (Bld) 0.4 /100{WBC} 0-0.5 [facility] Platelet adequacy [Presence] in Blood by Light microscopyOrdered By: James De on 03-03-2024 Platelets LM Ql (Bld) Normal Normal [facility] Platelet mean volume Auto (B ld) [Entitic vol]Ordered By: James De on 03-03-2024 Platelet mean volume (Bld) [Entitic vol] 8.4 fL 6.6-10.1 [facility] Platelet morphology finding [Identifier] in BloodOrdered By: James De on 03-03-2024 Platelet morphology finding Nom (Bld) Normal Normal [facility] Platelets Auto (Bld) [#/Vol] Ordered By: James De on 03-03-2024 Platelets (Bld) [#/Vol] 207 10*3/uL 150-450 [facility] Potassium [Moles/volume] in Serum or PlasmaOrdered By: James De on 03-03-2024 Potassium [Moles/Vol] 3.7 mmol/L 3.5-5.1 [facility] Protein Test strip (U) [Mass /Vol]Ordered By: Nish Davidson on 03-03-2024 Protein (U) [Mass/Vol] Trace mg/dL High Negative F [facility] RBC Auto (Bld) [#/Vol]Ordere d By: James De on 03-03-2024 RBC (Bld) [#/Vol] 5.64 10*6/uL High 3.90-5.60 [facility] RBC morphologyOrdered By: Asad De on 03-03-2024 RBC morphology finding Nom (Bld) Normal Normal [facility] Serum or plasma anion gap de terminationOrdered By: James De on 03-03-2024 Anion gap [Moles/Vol] 12.4 mmol/L 6.0-15.[address] [facility] Sodium [Moles/volume] in Ser um or PlasmaOrdered By: James De on 03-03-2024 Sodium [Moles/Vol] 136 mmol/L 136-145 [facility] Specific gravity Test strip (U) [Rel density]Ordered By: Nish Davidson on 03-03-2024 Specific gravity (U) [Rel density] 1.015 1.001-1.030 [facility] Transitional cells [#/area] in Urine by Computer assisted methodOrdered By: Nish Davidson on 03-03-2024 Transitional cells Computer assisted (U) [#/Area] 1-2 [HPF] High 0-1 [facility] Urea nitrogen [Mass/volume] in Serum or PlasmaOrdered By: James De on 03-03-2024 Urea nitrogen [Mass/Vol] 8 mg/dL 7-25 [facility] Urine appearanceOrdered By: Nish Davidson on 03-03-2024 Appearance (U) Clear Clear [facility] Urobilinogen Test strip (U) [Mass/Vol]Ordered By: Nish Davidson on 03-03-2024 Urobilinogen (U) [Mass/Vol] Normal mg/dL Normal [facility] WBC Auto (Bld) [#/Vol]Ordere d By: James De on 03-03-2024 WBC (Bld) [#/Vol] 9.0 10*3/uL 4.1-10.5 [facility] pH Test strip (U)Ordered By: Nish Davidson on 03-03-2024 pH (U) 6.0 [pH] 5.0-9.0 [facility] Surgical Pathologyon 024 Surgical Pathology Normal [facility] Comment on above: Result Comment: [facility] [address] [place] [address] Surgical Pathology Consultation Patient Name:CHAI ARNOLD:1970 (Age: 53)Gender:MTaken:02/17/2024eported:02/22/2024hysician(s):Jennyfer Augustin MD ([phone])Copy To: Rec. #:[id number]: #[id number] Final Pathologic Diagnosis 1. Colon polyp 55cm: Hyperplastic polyp. 2. Colon polyp 35cm: Tubular adenoma. Report Electronically Signed Out st/02/22/2024Keren Bee MD Interpretation performed at [facility], [address] [place], [address], License number: [id number]. Clinical History Change in bowel habits. Gross Description 1. Received in formalin labeled, [place], 55 cm is a mccray-richardson 0.3 cm soft tissue.. The specimen is filtered and entirely submitted in a single cassette. (1, ns, [id number], m8) SM 2. Received in formalin labeled, [place], 35 cm is a pale richardson 0.3 cm the specimen is filtered and entirely submitted in a single cassette. (1, ns, [id number], m8) [facility]/02/20/2024GR Specimen(s) Received 1: Colon polyp 55cm 2: Colon polyp 35cm Fee Codes(s): 1; 89063 2; 65661 Alanine aminotransferase [En zymatic activity/volume] in Serum or PlasmaOrdered By: Jennyfer Winkler on 01-29-2024 ALT [Catalytic activity/Vol] 24 U/L 7-52 [facility] Albumin [Mass/volume] in Ser um or Plasma by Bromocresol green (BCG) dye binding methoOrdered By: Jennyfer Winkler on 01-29-2024 Albumin BCG dye [Mass/Vol] 4.9 g/dL 3.5-5.7 [facility] Alkaline phosphatase [Enzyma tic activity/volume] in Serum or PlasmaOrdered By: Jennyfer Winkler on 01-29-2024 ALP [Catalytic activity/Vol] 96 U/L 34-104 [facility] Amylase [Enzymatic activity/ volume] in Serum or PlasmaOrdered By: Jennyfer Winkler on 01-29-2024 Amylase [Catalytic activity/Vol] 47 U/L 29-103 [facility] Aspartate aminotransferase [ Enzymatic activity/volume] in Serum or PlasmaOrdered By: Jennyfer Winkler on 01-29-2024 AST [Catalytic activity/Vol] 21 U/L 13-39 [facility] Basophils Auto (Bld) [#/Vol] Ordered By: Jennyfer Winkler on 01-29-2024 Basophils (Bld) [#/Vol] N/A F [facility] Basophils/100 WBC Auto (Bld) Ordered By: Jennyfer Winkler on 01-29-2024 Basophils/100 WBC (Bld) N/A F [facility] Bilirubin Test strip Ql (U)O rdered By: Jennyfer Winkler on 01-29-2024 Bilirubin Ql (U) Negative Negative [facility] Bilirubin.direct [Mass/volum e] in Serum or PlasmaOrdered By: Jennyfer iWnkler on 01-29-2024 Bilirubin.direct [Mass/Vol] 0.10 mg/dL 0.03-0.18 [facility] Bilirubin.total [Mass/volume ] in Serum or PlasmaOrdered By: Jennyfer Winkler on 01-29-2024 Bilirubin [Mass/Vol] 0.8 mg/dL 0.3-1.0 [facility] Calcium [Mass/volume] in Ser um or PlasmaOrdered By: Jennyfer Winkler on 01-29-2024 Calcium [Mass/Vol] 10.2 mg/dL 8.6-10.3 [facility] Carbon dioxide, total [Moles /volume] in Serum or PlasmaOrdered By: Jennyfer Winkler on 01-29-2024 CO2 [Moles/Vol] 26.4 mmol/L 21.0-31.0 [facility] Chloride [Moles/volume] in S dereje or PlasmaOrdered By: Jennyfer Winkler on 01-29-2024 Chloride [Moles/Vol] 98 mmol/L 98-107 [facility] Color Auto (U)Ordered By: Ella Winkler on 01-29-2024 Color (U) Colorless Yellow [facility] Creatinine [Mass/volume] in Serum or PlasmaOrdered By: Jennyfer Winkler on 01-29-2024 Creatinine [Mass/Vol] 1.07 mg/dL 0.70-1.30 [facility] Eosinophils Auto (Bld) [#/Vo l]Ordered By: Jennyfer Winkler on 01-29-2024 Eosinophils (Bld) [#/Vol] N/A [facility] Eosinophils/100 WBC Auto (Bl d)Ordered By: Jennyfer Winkler on 01-29-2024 Eosinophils/100 WBC (Bld) N/A [facility] Eosinophils/100 WBC Manual c nt (Bld)Ordered By: Jennyfer Winkler on 01-29-2024 Eosinophils/100 WBC (Bld) 5 % High 1-3 [facility] Erythrocyte distribution wid th Auto (RBC) [Ratio]Ordered By: Jennyfer Winkler on 01-29-2024 Erythrocyte distribution width (RBC) [Ratio] 12.1 % 12.0-14.8 [facility] Giant platelets/100 leukocyt es [Ratio] in Blood by Manual countOrdered By: Jennyfer Winkler on 01-29-2024 Giant platelets/100 WBC Manual cnt (Bld) [Ratio] 1 /100{WBC} [facility] Globulin Calc (S) [Mass/Vol] Ordered By: Jennyfer Winkler on 01-29-2024 Globulin (S) [Mass/Vol] 3.1 g/dL [facility] Glucose [Mass/volume] in Ser um or PlasmaOrdered By: Jennyfer Winkler on 01-29-2024 Glucose [Mass/Vol] 103 mg/dL High 70-100 [facility] Comment on above: ADA recommended refe rence rangeRandom Glucose Reference Range is dependent on time and content of last meal. Glucose of more than 200 mg/dL in a nonstressed, ambulatory subject supports the diagnosis of Diabetes Mellitus. Glucose [Mass/volume] in Uri ne by Test stripOrdered By: Jennyfer Winkler on 01-29-2024 Glucose Test strip (U) [Mass/Vol] Normal mg/dL Normal [facility] Hematocrit Auto (Bld) [Volum e fraction]Ordered By: Jennyfer Winkler on 01-29-2024 Hematocrit (Bld) [Volume fraction] 54.1 % High 38.8-50.0 [facility] Hemoglobin Test strip Ql (U) Ordered By: Jennyfer Winkler on 01-29-2024 Hemoglobin Ql (U) Negative Negative [facility] Hemoglobin [Mass/volume] in BloodOrdered By: Jennyfer Winkler on 01-29-2024 Hemoglobin (Bld) [Mass/Vol] 18.9 g/dL High 13.0-17.0 [facility] Ketones Test strip Ql (U)Ord ered By: Jennyfer Winkler on 01-29-2024 Ketones Ql (U) Negative Negative [facility] Leukocyte esterase [Presence ] in Urine by Test stripOrdered By: Jennyfer Winkler on 01-29-2024 Leukocyte esterase Test strip Ql (U) Negative Negative [facility] Leukocytes [#/volume] correc ernst for nucleated erythrocytes in Blood by Automated counOrdered By: Jennyfer Winkler on 01-29-2024 WBC corrected for nucl RBC Auto (Bld) [#/Vol] 6.8 10*3/uL 4.1-10.5 [facility] Lipase [Enzymatic activity/v olume] in Serum or PlasmaOrdered By: Jennyfer Winkler on 01-29-2024 Lipase [Catalytic activity/Vol] 29.0 U/L 11.0-82.0 [facility] Lymphocytes Auto (Bld) [#/Vo l]Ordered By: Jennyfer Winkler on 01-29-2024 Lymphocytes (Bld) [#/Vol] N/A [facility] Lymphocytes/100 WBC Auto (Bl d)Ordered By: Jennyfer Winkler on 01-29-2024 Lymphocytes/100 WBC (Bld) N/A [facility] Lymphocytes/100 WBC Manual c nt (Bld)Ordered By: Jennyfer Winkler on 01-29-2024 Lymphocytes/100 WBC (Bld) 28 % 18-42 [facility] MCH Auto (RBC) [Entitic mass ]Ordered By: Jennyfer Winkler on 01-29-2024 MCH (RBC) [Entitic mass] 32.4 pg 27.5-35.2 [facility] MCHC Auto (RBC) [Mass/Vol]Or dered By: Jennyfer Winkler on 01-29-2024 MCHC (RBC) [Mass/Vol] 35.0 g/dL 32.5-35.6 [facility] MCV Auto (RBC) [Entitic vol] Ordered By: Jennyfer Winkler on 01-29-2024 MCV (RBC) [Entitic vol] 92.7 fL 83.5-101 F [facility] Monocyte distribution width [Entitic volume] in Blood by AutomatedOrdered By: Jennyfer Winkler on 01-29-2024 Monocyte distribution width Auto (Bld) [Entitic vol] 18.41 % 0.00-20.00 [facility] Monocytes Auto (Bld) [#/Vol] Ordered By: Jennyfer Winkler on 01-29-2024 Monocytes (Bld) [#/Vol] N/A F [facility] Monocytes/100 WBC Auto (Bld) Ordered By: Jennyfer Winkler on 01-29-2024 Monocytes/100 WBC (Bld) N/A [facility] Monocytes/100 WBC Manual cnt (Bld)Ordered By: Jennyfer Winkler on 01-29-2024 Monocytes/100 WBC (Bld) 4 % 2-11 F [facility] Neutrophils Auto (Bld) [#/Vo l]Ordered By: Jennyfer Winkler on 01-29-2024 Neutrophils (Bld) [#/Vol] N/A [facility] Neutrophils/100 WBC Auto (Bl d)Ordered By: Jennyfer Winkler on 01-29-2024 Neutrophils/100 WBC (Bld) N/A [facility] Nitrite Test strip Ql (U)Ord ered By: Jennyfer Winkler on 01-29-2024 Nitrite Ql (U) Negative Negative [facility] No Panel InformationOrdered By: Jennyfer Winkler on 01-29-2024 Estimated GFR (CKD-EPI) > 60.0 mL/Min [facility] Creatinine Clearance (Chem 83.32 [facility] Nucleated erythrocytes [Pres ence] in Blood by Automated countOrdered By: Jennyfer Winkler on 01-29-2024 Nucleated RBC Auto Ql (Bld) N/A [facility] Platelet adequacy [Presence] in Blood by Light microscopyOrdered By: Jennyfer Winkler on 01-29-2024 Platelets LM Ql (Bld) Normal Normal [facility] Platelet mean volume Auto (B ld) [Entitic vol]Ordered By: Jennyfer Winkler on 01-29-2024 Platelet mean volume (Bld) [Entitic vol] 8.1 fL 6.6-10.1 [facility] Platelet morphology finding [Identifier] in BloodOrdered By: Jennyfer Winkler on 01-29-2024 Platelet morphology finding Nom (Bld) Normal Normal [facility] Platelets Auto (Bld) [#/Vol] Ordered By: Jennyfer Winkler on 01-29-2024 Platelets (Bld) [#/Vol] 245 10*3/uL 150-450 [facility] Potassium [Moles/volume] in Serum or PlasmaOrdered By: Jennyfer Winkler on 01-29-2024 Potassium [Moles/Vol] 3.9 mmol/L 3.5-5.1 [facility] Protein Test strip (U) [Mass /Vol]Ordered By: Jennyfer Winkler on 01-29-2024 Protein (U) [Mass/Vol] Negative Negative [facility] Protein [Mass/volume] in Ser um or PlasmaOrdered By: Jennyfer Winkler on 01-29-2024 Protein [Mass/Vol] 8.0 g/dL 6.4-8.9 [facility] RBC Auto (Bld) [#/Vol]Ordere d By: Jennyfer Winkler on 01-29-2024 RBC (Bld) [#/Vol] 5.83 10*6/uL High 3.90-5.60 [facility] RBC morphologyOrdered By: Ella Winkler on 01-29-2024 RBC morphology finding Nom (Bld) Normal Normal [facility] Segmented neutrophils/100 WB C Manual cnt (Bld)Ordered By: Jennyfer Winkler on 01-29-2024 Segmented neutrophils/100 WBC (Bld) 58 % 50-70 [facility] Serum or plasma albumin/glob ulin mass ratioOrdered By: Jennyfer Winkler on 01-29-2024 Albumin/Globulin [Mass ratio] 1.6 {ratio} [facility] Serum or plasma anion gap de terminationOrdered By: Jennyfer Winkler on 01-29-2024 Anion gap [Moles/Vol] 10.5 mmol/L 6.0-15.0 [facility] Serum or plasma non-glucuron idated bilirubin measurement (mass/volume)Ordered By: Jennyfer Winkler on 01-29-2024 Bilirubin.indirect [Mass/Vol] 0.7 mg/dL [facility] Sodium [Moles/volume] in Ser um or PlasmaOrdered By: Jennyfer Winkler on 01-29-2024 Sodium [Moles/Vol] 131 mmol/L Low 136-145 [facility] Specific gravity Test strip (U) [Rel density]Ordered By: Jennyfer Winkler on 01-29-2024 Specific gravity (U) [Rel density] 1.003 1.001-1.030 [facility] Urea nitrogen [Mass/volume] in Serum or PlasmaOrdered By: Jennyfer Winkler on 01-29-2024 Urea nitrogen [Mass/Vol] 6 mg/dL Low 7-25 [facility] Urine appearanceOrdered By: Jennyfer Winkler on 01-29-2024 Appearance (U) Clear Clear [facility] Urobilinogen Test strip (U) [Mass/Vol]Ordered By: Jennyfer Winkler on 01-29-2024 Urobilinogen (U) [Mass/Vol] Normal mg/dL Normal [facility] Variant lymphocytes/100 WBC Manual cnt (Bld)Ordered By: Jennyfer Winkler on 01-29-2024 Variant lymphocytes/100 WBC (Bld) 6 % 0-12 [facility] WBC Auto (Bld) [#/Vol]Ordere d By: Jennyfer Winkler on 01-29-2024 WBC (Bld) [#/Vol] 6.8 10*3/uL 4.1-10.5 [facility] pH Test strip (U)Ordered By: Jennyfer Winkler on 01-29-2024 pH (U) 7.5 [pH] 5.0-9.0 [facility] CBC AUTO DIFFon 03-26-2022 BASO # 0.1 103/ul Normal 0.0-0.1 [facility] Comment on above: Performed By: #### C BC #### [facility] [address] [place] [address] Dr. Pravin Travis Basophils/100 WBC (Bld) 0.7 % Normal 0.2-2.0 [facility] Comment on above: Performed By: #### C BC #### [facility] [address] [place] [address] Dr. Pravin Travis EO # 0.6 103/ul Normal 0.0-0.7 [facility] Comment on above: Performed By: #### C BC #### [facility] [address] [place] [address] Dr. Pravin Travis Eosinophils/100 WBC (Bld) 7.4 % Critically high 0.9-7.0 [facility] Comment on above: Performed By: #### C BC #### [facility] [address] [place] [address] Dr. Pravin Travis Erythrocyte distribution width (RBC) [Ratio] 12.3 % Normal 11.0-15.0 [facility] Comment on above: Performed By: #### C BC #### [facility] [address] [place] [address] Dr. Pravin Travis Hematocrit (Bld) [Volume fraction] 47.2 % Normal 42.0-54.0 [facility] Comment on above: Performed By: #### C BC #### [facility] [address] [place] [address] Dr. Pravin Travis Hemoglobin (Bld) [Mass/Vol] 16.2 g/dL Normal 14.0-18.0 [facility] Comment on above: Performed By: #### C BC #### [facility] [address] [place] [address] Dr. Pravin Travis IG # 0.03 10e3/ul Normal 0.00-0.03 [facility] Comment on above: Performed By: #### C BC #### [facility] [address] [place] [address] Dr. Pravin Travis IG % 0.4 % Normal 0.0-0.5 [facility] Comment on above: Performed By: #### C BC #### [facility] [address] [place] [address] Dr. Pravin Travis LYMPH # 2.1 103/ul Normal 1.2-3.8 [facility] Comment on above: Performed By: #### C BC #### [facility] [address] [place] [address] Dr. Pravin Travis Lymphocytes/100 WBC (Bld) 24.3 % Normal 20.5-60.0 [facility] Comment on above: Performed By: #### C BC #### [facility] [address] [place] [address] Dr. Pravin Travis MANUAL DIFF REQ NO Normal [facility] Comment on above: Performed By: #### C BC #### [facility] [address] [place] [address] Dr. Pravin Travis MCH (RBC) [Entitic mass] 32.6 pg Normal 25.9-34.0 [facility] Comment on above: Performed By: #### C BC #### [facility] [address] [place] [address] Dr. Pravin Travis MCHC (RBC) [Mass/Vol] 34.3 g/dL Normal 29.9-35.2 [facility] Comment on above: Performed By: #### C BC #### [facility] [address] [place] [address] Dr. Pravin Travis MCV (RBC) [Entitic vol] 95.0 fL Critically high 80.0-94 .0 [facility] Comment on above: Performed By: #### C BC #### [facility] [address] [place] [address] Dr. Pravin Travis MONO # 0.8 103/ul Normal 0.3-0.8 [facility] Comment on above: Performed By: #### C BC #### [facility] [address] [place] [address] Dr. Pravin Travis Monocytes/100 WBC (Bld) 9.7 % Normal 1.7-12.0 [facility] Comment on above: Performed By: #### C BC #### [facility] [address] [place] [address] Dr. Pravin Travis NEUT # 4.9 103/ul Normal 1.4-6.5 [facility] Comment on above: Performed By: #### C BC #### [facility] [address] [place] [address] Dr. Pravin Travis Neutrophils/100 WBC (Bld) 57.5 % Normal 43.0-75.0 [facility] Comment on above: Performed By: #### C BC #### [facility] [address] [place] [address] Dr. Pravin Travis Platelet mean volume (Bld) [Entitic vol] 10.4 fL Normal 9.5-13.5 [facility] Comment on above: Performed By: #### C BC #### [facility] [address] [address] [address] Pravin Travis PLT 215 103/ul Normal 150-450 [facility] Comment on above: Performed By: #### C BC #### [facility] [address] [address] [address] Pravin Travis RBC 4.97 106/ul Normal 4.70-6.10 [facility] Comment on above: Performed By: #### C BC #### [facility] [address] [address] [address] Pravin Travis WBC 8.6 103/ul Normal 4.0-11.0 [facility] Comment on above: Performed By: #### C BC #### [facility] [address] [place] [address] ABD/PELV W CONon [...] Date: 2022-03-26 01:45 Normal [facility] ER URINE PROFILEon 2 Bilirubin Ql (U) Negative Normal NEGATIVE [facility] Comment on above: Performed By: #### E RUR #### [facility] [address] [address] [address] Pravin Travis Clarity (U) SL CLOUDY Abnormal CLEAR [facility] Comment on above: Performed By: #### E RUR #### [facility] [address] [place] [address] Dr. Pravin Travis Color (U) LT. YELLOW Normal YELLOW [facility] Comment on above: Performed By: #### E RUR #### [facility] [address] [place] [address] Dr. Pravin TURK A micrscopic examination will be performed if indicated. Normal [facility] Comment on above: Performed By: #### E RUR #### [facility] [address] [place] [address] Dr. Pravin Travis Glucose Ql (U) Negative Normal NEGATIVE The [facility] Comment on above: Performed By: #### E RUR #### [facility] [address] [place] [address] Dr. Pravin Travis Hemoglobin Ql (U) Negative Normal NEGATIVE [facility] Comment on above: Performed By: #### E RUR #### [facility] [address] [place] [address] Dr. Pravin Travis Ketones Ql (U) Negative Normal NEGATIVE The [facility] Comment on above: Performed By: #### E RUR #### [facility] [address] [place] [address] Dr. Pravin Travis LEUKOCYTES Negative Normal NEGATIVE [facility] Comment on above: Performed By: #### E RUR #### [facility] [address] [place] [address] Dr. Pravin Travis Nitrite Ql (U) Negative Normal NEGATIVE The [facility] Comment on above: Performed By: #### E RUR #### [facility] [address] [place] [address] Dr. Pravin Travis pH (U) 7.5 [pH] Normal 5-9 [facility] Comment on above: Performed By: #### E RUR #### [facility] [address] [place] [address] Dr. Pravin Travis SPEC GRAVITY 1.015 Normal 1.005-<=1.02 5 [facility] Comment on above: Performed By: #### E RUR #### [facility] [address] [place] [address] Dr. Pravin Travis UA PROTEIN Negative Normal NEGATIVE/ TRACE [facility] Comment on above: Performed By: #### E RUR #### [facility] [address] [place] [address] Dr. Pravin Travis UR MICRO IND NOT INDICATED Normal [facility] Comment on above: Performed By: #### E RUR #### [facility] [address] [place] [address] Dr. Pravin Travis Urobilinogen Qn (U) 0.2 {Katie'U}/dL Normal 0.2 - 1. 0 [facility] Comment on above: Performed By: #### E RUR #### [facility] [address] [place] [address] Dr. Pravin Travis PROF 14(COMP METB)on 022 Albumin [Mass/Vol] 4.3 g/dL Normal 3.4-5.0 [facility] Comment on above: Performed By: #### C MP #### [facility] [address] [place] [address] Dr. Pravin Travis Albumin/Globulin [Mass ratio] 1.3 {ratio} Normal [facility] Comment on above: Performed By: #### C MP #### [facility] [address] [place] [address] Dr. Pravin Travis ALP [Catalytic activity/Vol] 92 U/L Normal 46-116 [facility] Comment on above: Performed By: #### C MP #### [facility] [address] [place] [address] Dr. Pravin Travis ALT [Catalytic activity/Vol] 31 U/L Normal 16-63 [facility] Comment on above: Performed By: #### C MP #### [facility] [address] [place] [address] Dr. Pravin Travis Anion gap [Moles/Vol] 10.9 mmol/L Normal [facility] Comment on above: Performed By: #### C MP #### [facility] [address] [address] [address] Pravin Travis AST [Catalytic activity/Vol] 31 U/L Normal 15-37 [facility] Comment on above: Performed By: #### C MP #### [facility] [address] [address] [address] Pravin Travis Bilirubin [Mass/Vol] 0.5 mg/dL Normal 0.2-1.0 [facility] Comment on above: Performed By: #### C MP #### [facility] [address] [address] [address] Pravin Travis Calcium [Mass/Vol] 9.3 mg/dL Normal 8.5-10.1 [facility] Comment on above: Performed By: #### C MP #### [facility] [address] [address] [address] Pravin Travis Chloride [Moles/Vol] 103 mmol/L Normal 98-107 [facility] Comment on above: Performed By: #### C MP #### [facility] [address] [address] [address] Pravin Travis CO2 [Moles/Vol] 29.8 mmol/L Normal 21.0-32.0 [facility] Comment on above: Performed By: #### C MP #### [facility] [address] [address] [address] Pravin Travis Creatinine [Mass/Vol] 1.22 mg/dL Normal 0.70-1.30 [facility] Comment on above: Performed By: #### C MP #### [facility] [address] [address] [address] Pravin Travis EGFR-AF CITIZEN OF [place] >60 Normal >=60 [facility] Comment on above: Performed By: #### C MP #### [facility] [address] [address] [address] Pravin Travis EGFR-NON AF CITIZEN OF [place] >60 Normal >=60 The [facility] Comment on above: Performed By: #### C MP #### [facility] [address] [address] [address] Pravin Travis Globulin (S) [Mass/Vol] 3.4 g/dL Normal T [facility] Comment on above: Performed By: #### C MP #### [facility] [address] [address] [address] Pravin Travis Glucose [Mass/Vol] 91 mg/dL Normal 74-106 [facility] Comment on above: Performed By: #### C MP #### [facility] [address] [address] [address] Pravin Travis Potassium [Moles/Vol] 3.7 mmol/L Normal 3.5-5.1 [facility] Comment on above: Performed By: #### C MP #### [facility] [address] [address] [address] Pravin Travis Protein [Mass/Vol] 7.7 g/dL Normal 6.4-8.2 [facility] Comment on above: Performed By: #### C MP #### [facility] [address] [address] [address] Pravin Travis Sodium [Moles/Vol] 140 mmol/L Normal 136-145 [facility] Comment on above: Performed By: #### C MP #### [facility] [address] [address] [address] Pravin Travis Urea nitrogen [Mass/Vol] 11.0 mg/dL Normal 7.0-18.0 [facility] Comment on above: Performed By: #### C MP #### [facility] [address] [address] [address] Pravin Travis Urea nitrogen/Creatinine [Mass ratio] 9.0 mg/mg Normal [facility] Comment on above: Performed By: #### C MP #### [facility] [address] [address] [address] Pravin Travis COVID Quick Testingon 2021 Result Positive [employer] Other COVID Quick Testingon 2020 Result Negative [facility] Other Quick Fluon 08-11-2021 FLUAV Ab CF (S) [Titer] Negative N [facility] Other FLUBV Ab CF (S) [Titer] Negative N [facility] Other Vital Signs Date Time Vital Sign Value Performing Clinician Facility 03-19-2025 16:30-0400 Diastolic blood pressure 113 mm[Hg] Cisco Furlong DO Work Phone: [facility] 03-19-2025 16:30-0400 Heart rate 76 /min Cisco Furlong DO Work Phone: [facility] 03-19-2025 16:30-0400 Respiratory rate 16 /min Cisco Furlong DO Work Phone: [facility] 03-19-2025 16:30-0400 SaO2% (BldA) [Mass fraction] 97 % Cisco Furlong DO Work Phone: [facility] 03-19-2025 16:30-0400 Systolic blood pressure 143 mm[Hg] Cisco Furlong DO Work Phone: [facility] 03-19-2025 16:00-0400 Body temperature 96.8 [degF] Cisco Furlong DO Work Phone: [facility] 03-19-2025 11:36-0400 Body height 172.72 cm Cisco Furlong DO Work Phone: [facility] 03-19-2025 11:36-0400 Body weight 90.9 kg Cisco Furlong DO Work Phone: [facility] 02-28-2025 12:24-0400 Body height 175.3 cm Lydia Drake PA-C Work Phone: [facility] 02-28-2025 12:24-0400 Body mass index (BMI) [Ratio] 29.53 kg/m2 Lydia Frankkovic PA-C Work Phone: [facility] 02-28-2025 12:24-0400 Body temperature 97 [degF] Lydia Frankkovic PA-C Work Phone: [facility] 02-28-2025 12:24-0400 Body weight 90.72 kg Lydia Frankkovic PA-C Work Phone: [facility] 02-28-2025 12:24-0400 Diastolic blood pressure 93 mm[Hg] Lydia Frankkovic PA-C Work Phone: [facility] 02-28-2025 12:24-0400 Heart rate 76 /min Lydia Frankkovic PA-C Work Phone: [facility] 02-28-2025 12:24-0400 SaO2% (BldA) [Mass fraction] 97 % Lydia Woodsonic PA-C Work Phone: [facility] 02-28-2025 12:24-0400 Systolic blood pressure 141 mm[Hg] Lydia Woodsonic PA-C Work Phone: [facility] 02-18-2025 13:45-0400 Body height 172.72 cm Cisco Furlong DO Work Phone: [facility] 02-18-2025 13:45-0400 Body mass index (BMI) [Ratio] 28.8 kg/m2 Cisco Furlong DO Work Phone: [facility] 02-18-2025 13:45-0400 Body weight 86.18 kg Cisco Furlong DO Work Phone: [facility] 01-09-2025 12:53-0400 Diastolic blood pressure 109 mm[Hg] Vivian Brady [facility] 01-09-2025 12:53-0400 Mean blood pressure 131 mm[Hg] Vivian Brady [facility] 01-09-2025 12:53-0400 Systolic blood pressure 174 mm[Hg] Apurvad Oliverioli [facility] 01-09-2025 12:43-0400 Blood Pressure Location [facility] Jerouchli [facility] 01-09-2025 12:43-0400 Diastolic blood pressure 117 mm[Hg] Apurvad Jerouchli [facility] 01-09-2025 12:43-0400 Heart rate 80 /min Apurvad Jerouchli [facility] 01-09-2025 12:43-0400 Systolic blood pressure 179 mm[Hg] Apurvad Oliverioli [facility] 12-10-2024 13:07-0400 Body height 172.7 cm Cisco Furlong DO Work Phone: [facility] 12-10-2024 13:07-0400 Body mass index (BMI) [Ratio] 29.47 kg/m2 Cisco Furlong DO Work Phone: [facility] 12-10-2024 13:07-0400 Body temperature 98.4 [degF] Cisco Furlong DO Work Phone: [facility] 12-10-2024 13:07-0400 Body weight 87.91 kg Cisco [facility] 12-10-2024 13:07-0400 Diastolic blood pressure 90 mm[Hg] Cisco Furlong DO Work Phone: [facility] 12-10-2024 13:07-0400 Heart rate 102 /min Cisco Furlong [facility] 12-10-2024 13:07-0400 Respiratory rate 18 /min Cisco Furlong DO Work Phone: [facility] 12-10-2024 13:07-0400 SaO2% (BldA) [Mass fraction] 97 % Cisco Furlong DO Work Phone: [facility] 12-10-2024 13:07-0400 Systolic blood pressure 140 mm[Hg] Cisco Furlong DO Work Phone: [facility] 09-11-2024 14:23-0500 Body height 172.7 cm Cisco Furlong DO Work Phone: [facility] 09-11-2024 14:23-0500 Body mass index (BMI) [Ratio] 28.89 kg/m2 Cisco Furlong DO Work Phone: [facility] 09-11-2024 14:23-0500 Body temperature 97.9 [degF] Cisco Furlong DO Work Phone: [facility] 09-11-2024 14:23-0500 Body weight 86.18 kg Cisco Furlong DO Work Phone: [facility] 09-11-2024 14:23-0500 Diastolic blood pressure 90 mm[Hg] Cisco Furlong DO Work Phone: [facility] 09-11-2024 14:23-0500 Heart rate 105 /min Cisco Furlong DO Work Phone: [facility] 09-11-2024 14:23-0500 Respiratory rate 20 /min Cisco Furlong DO Work Phone: [facility] 09-11-2024 14:23-0500 SaO2% (BldA) [Mass fraction] 99 % Cisco Furlong DO Work Phone: [facility] 09-11-2024 14:23-0500 Systolic blood pressure 140 mm[Hg] Cisco Furlong DO Work Phone: [facility] 03-15-2024 16:08-0400 Body height 172.7 cm Cisco Furlong DO Work Phone: [facility] 03-15-2024 16:08-0400 Body mass index (BMI) [Ratio] 27.79 kg/m2 Cisco Furlong DO Work Phone: [facility] 03-15-2024 16:08-0400 Body temperature 97.7 [degF] Cisco Furlong DO Work Phone: [facility] 03-15-2024 16:08-0400 Body weight 82.92 kg Cisco Furlong DO Work Phone: [facility] 03-15-2024 16:08-0400 Diastolic blood pressure 70 mm[Hg] Cisco Furlong DO Work Phone: [facility] 03-15-2024 16:08-0400 Heart rate 79 /min Cisco Furlong DO Work Phone: [facility] 03-15-2024 16:08-0400 SaO2% (BldA) [Mass fraction] 97 % Cisco Furlong DO Work Phone: [facility] 03-15-2024 16:08-0400 Systolic blood pressure 120 mm[Hg] Cisco Furlong DO Work Phone: [facility] 03-03-2024 14:00-0400 Diastolic blood pressure 95 mm[Hg] DO Cisco Furlong Work Phone: [facility] 03-03-2024 14:00-0400 Heart rate 79 /min DO Cisco Furlong Work Phone: [facility] 03-03-2024 14:00-0400 Respiratory rate 18 /min DO Cisco Furlong Work Phone: [facility] 03-03-2024 14:00-0400 SaO2% (BldA) [Mass fraction] 95 % DO Cisco Furlong Work Phone: [facility] 03-03-2024 14:00-0400 Systolic blood pressure 147 mm[Hg] DO Cisco Furlong Work Phone: [facility] 03-03-2024 11:20-0400 Body temperature 98.2 [degF] DO Cisco Furlong Work Phone: [facility] 03-03-2024 11:18-0400 Body height 172.72 cm DO Cisco Furlong Work Phone: [facility] 03-03-2024 11:18-0400 Body weight 80.65 kg DO Cisco Furlong Work Phone: [facility] 02-02-2024 11:29-0400 Body temperature 98.6 [degF] Didi Orzech [facility] 02-02-2024 11:29-0400 Diastolic blood pressure 81 mm[Hg] Didi Orzech [facility] 02-02-2024 11:29-0400 Heart rate 77 /min Didi Orzech [facility] 02-02-2024 11:29-0400 Respiratory rate 16 /min Didi Orzech [facility] 02-02-2024 11:29-0400 Systolic blood pressure 136 mm[Hg] Didi Orzech [facility] 01-30-2024 01:11-0400 Heart rate 159 /min DO Cisco Furlong Work Phone: [facility] 01-30-2024 00:30-0400 Respiratory rate 22 /min DO Cisco Furlong Work Phone: [facility] 01-30-2024 00:30-0400 SaO2% (BldA) [Mass fraction] 97 % DO Cisco Furlong Work Phone: [facility] 01-29-2024 23:38-0400 Diastolic blood pressure 95 mm[Hg] DO Cisco Furlong Work Phone: [facility] 01-29-2024 23:38-0400 Systolic blood pressure 136 mm[Hg] DO Cisco Furlong Work Phone: [facility] 01-29-2024 22:45-0400 Body height 172.72 cm DO Cisco Furlong Work Phone: [facility] 01-29-2024 22:45-0400 Body weight 86.2 kg DO Cisco Furlong Work Phone: [facility] 01-29-2024 22:44-0400 Body temperature 98.3 [degF] DO Cisco Furlong Work Phone: [facility] 12-09-2023 08:47-0400 Body height 172.7 cm Michelle Francis COSMETICS PRESSER-SCRATCHER Work Phone: [facility] 12-09-2023 08:47-0400 Body mass index (BMI) [Ratio] 30.08 kg/m2 Michellenisha Francis COSMETICS PRESSER-SCRATCHER Work Phone: [facility] 12-09-2023 08:47-0400 Body temperature 98.29 [degF] Michelle Tito COSMETICS PRESSER-SCRATCHER Work Phone: [facility] 12-09-2023 08:47-0400 Body weight 89.72 kg Michelle Francis COSMETICS PRESSER-SCRATCHER Work Phone: [facility] 12-09-2023 08:47-0400 Diastolic blood pressure 86 mm[Hg] Michelle Francis COSMETICS PRESSER-SCRATCHER Work Phone: [facility] 12-09-2023 08:47-0400 Heart rate 82 /min Michelle Francis APRN-SCRATCHER Work Phone: [employer] 12-09-2023 08:47-0400 Respiratory rate 18 /min Michelle Francis APRN-SCRATCHER Work Phone: [employer] 12-09-2023 08:47-0400 SaO2% (BldA) [Mass fraction] 96 % Michelle Francis APRN-SCRATCHER Work Phone: [employer] 12-09-2023 08:47-0400 Systolic blood pressure 120 mm[Hg] Michelle Francis APRN-LIDA Work Phone: [employer] 09-01-2021 13:30-0500 Body height 172.72 cm Tawnya Andre Other [facility] Other 09-01-2021 13:30-0500 Body mass index (BMI) [Ratio] 31.93 kg/m2 Tawnya Andre Other [facility] Other 09-01-2021 13:30-0500 Body temperature 97.4 [degF] Tawnya Andre Other [facility] Other 09-01-2021 13:30-0500 Body weight 95.26 kg Tawnya Andre Other [facility] Other 09-01-2021 13:30-0500 Respiratory rate 18 /min Tawnay Andre Other [facility] Other 09-01-2021 13:30-0500 SaO2% (BldA) [Mass fraction] 98 % Tawnya Andre Other [facility] Other 08-11-2021 12:00-0500 Body height 172.72 cm Mary King Other [employer] Other 08-11-2021 12:00-0500 Body mass index (BMI) [Ratio] 31.93 kg/m2 Mary King Other [facility] Other 08-11-2021 12:00-0500 Body temperature 96.9 [degF] Mary King Other [facility] Other 08-11-2021 12:00-0500 Body weight 95.26 kg Mary King Other [facility] Other 08-11-2021 12:00-0500 Respiratory rate 18 /min Mary King Other [employer] Other 08-11-2021 12:00-0500 SaO2% (BldA) [Mass fraction] 96 % Mary King Other [employer] Other Encounters Encounter Date Encounter Type Care Provider Facility Start: 05-16-2025 ambulatory Didi X Orzech Facilit y:[facility] Start: 05-15-2025 ambulatory Vivian Brady Faci lity:[facility] Start: 05-13-2025 End: 05-13-2025 Refill Cisco Bonilla DO Work Phone: [facility] Comment on above: Anal fissure (Primar y Dx) Start: 04-23-2025 End: 04-23-2025 ambulatory Vivian Brady Facility:[facility] Start: 04-23-2025 End: 04-23-2025 Patient encounter procedure Vivian Brady [facility] Start: 04-08-2025 End: 04-08-2025 ambulatory Cisco Carrillokiley DO Work Phone: [facility] Work Phone: Start: 04-08-2025 End: [...] Start: 04-02-2025 End: 04-02-2025 ambulatory LYDIA DRAKE Facility:[facility] Start: 03-22-2025 End: 03-27-2025 Refill Cisco G Gerardokiley DO Work Phone: [facility] Comment on above: Anxiety Start: 03-19-2025 End: 03-19-2025 Admission to same day surgery center Ehsan Avina DO -[facility] Start: 03-19-2025 End: 03-19-2025 ambulatory Cisco Furlong DO Work Phone: [facility] Work Phone: Start: 03-18-2025 End: 03-18-2025 Patient encounter procedure Ehsan Avina DO -Pre-Surgical Testing Work Phone: Start: 03-18-2025 End: 03-18-2025 ambulatory Cisco Furlong DO Work Phone: [facility] Work Phone: Start: 03-18-2025 Encounter for preprocedural laboratory examination Ehsan Jia Kailyn [facility] Start: 03-13-2025 End: 03-13-2025 ambulatory Cisco Furlong DO Work Phone: [facility] Work Phone: Start: 03-13-2025 End: 03-13-2025 Patient encounter procedure Ehsan Avina DO -[facility] Work Phone: Start: 03-13-2025 End: 03-13-2025 Patient encounter procedure Ehsan Avina DO -[facility] Start: 03-13-2025 End: 03-13-2025 ambulatory Cisco Furlong DO Work Phone: [facility] Work Phone: Start: 03-12-2025 Non-patient / Non-visit Ehsan alanis -[facility] Work Phone: Start: 03-07-2025 End: [...] End: 02-28-2025 Patient encounter procedure Lydia Drake JAME Work Phone: Colorectal Surgery Comment on above: Pelvic floor dysfunc tion (Primary Dx); Rectal spasm; Constipation, unspecified constipation type Start: 02-28-2025 End: 02-28-2025 Nursing evaluation of patient and report Sahil Bergeron RN Colorectal Surgery Comment on above: Pelvic floor dysfunc tion Start: 02-28-2025 End: 02-28-2025 ambulatory FELIPE ARIAS Facility:[facility] Start: 02-18-2025 End: 02-18-2025 ambulatory Cisco Bonilla DO Work Phone: [facility] Work Phone: Start: 02-18-2025 End: 02-18-2025 Patient encounter procedure Ehsan Avina DO -[facility] Work Phone: Start: 02-11-2025 End: 02-11-2025 Telephone encounter Ashley Hayward MD Work Phone: Colorectal Surgery Comment on above: Appointment (Left vm we received referral for botox injections) Start: 02-06-2025 End: 02-06-2025 Refill Cisco Carcamolong DO Work Phone: [facility] Start: 01-28-2025 End: 01-29-2025 Refill Cisco G Furlong DO Work Phone: [facility] Start: 01-26-2025 End: 01-28-2025 Refill Cisco G Furlong DO Work Phone: [facility] Start: 01-24-2025 End: 01-24-2025 ambulatory Vivian Brady Facility[facility] Start: 01-24-2025 End: 01-24-2025 Patient encounter procedure Vivian Brady [facility] Start: 01-16-2025 End: 01-16-2025 Transcribe Orders Vivian Brady MD Work Phone: Referring Physician Comment on above: Constipation by outl et dysfunction (Primary Dx); Stress-related physiological response affecting medical condition Start: 01-09-2025 End: 01-09-2025 [facility] Start: 01-09-2025 End: 01-09-2025 Patient encounter procedure Vivian Brady [facility] Start: 12-31-2024 ambulatory [facility] Start: 12-31-2024 End: 12-31-2024 Telephone encounter [facility] [...] Orders Only Cisco Carrillong DO Work Phone: [facility] Comment on above: Irritable bowel synd chaitanya with both constipation and diarrhea (Primary Dx) Start: 12-14-2024 End: 12-14-2024 Orders Only Cisco Carrillong DO Work Phone: [facility] Comment on above: Anal fissure (Primar y Dx) Start: 12-12-2024 End: 12-12-2024 Refill Cisco Bonilla DO Work Phone: [facility] Start: 12-10-2024 End: 12-10-2024 ambulatory [facility] Start: 12-10-2024 Encounter for genera l adult medical examination without abnormal findings [facility] Start: 12-10-2024 End: 12-10-2024 Patient encounter status Cisco Bonilla DO Work Phone: [facility] Start: 12-10-2024 End: 12-10-2024 Periodic preventive med est patient 40-64yrs Cisco Bonilla DO Work Phone: [facility] Comment on above: Well adult exam (Marilynn lawson Dx); Anxiety; Overweight; Iron overload; Encounter for screening for malignant neoplasm of prostate; Ex-smoker; Hypogonadism in male; Severe episode of recurrent major depressive disorder, without psychotic features ([facility]); Irritable bowel syndrome with both constipation and diarrhea Start: 12-10-2024 End: 12-10-2024 ambulatory [facility] Start: 12-10-2024 Encounter for genera l adult medical examination without abnormal findings [facility] Start: 11-02-2024 End: 11-02-2024 Orders Only Cisco Bonilla DO Work Phone: [facility] Start: 10-15-2024 End: 10-15-2024 Orders Only Cisco Bonilla DO Work Phone: [facility] Start: 09-26-2024 End: 10-03-2024 Telephone encounter [facility] Work Phone: [facility] Start: 09-13-2024 End: 09-13-2024 Orders Only Ciscosherman Bonilla DO Work Phone: [facility] [...] 09-12-2024 Refill Cisco Bonilla DO Work Phone: [facility] Start: 05-15-2024 End: 05-15-2024 Emergency department patient visit CISCO BONILLA [facility] Start: 04-04-2024 End: 04-10-2024 Telephone encounter Cisco Bonilla DO Work Phone: [facility] Start: 04-03-2024 End: 04-03-2024 Patient encounter procedure Didi X Latoyach [facility] Start: 03-16-2024 End: 03-16-2024 Orders Only Cisco Bonilla DO Work Phone: [facility] Start: 03-15-2024 End: 03-15-2024 Office outpatient visit 25 minutes Cisco Bonilla DO Work Phone: [facility] Comment on above: Irritable bowel synd chaitanya with both constipation and diarrhea (Primary Dx); Umbilical hernia without obstruction and without gangrene; Incisional hernia, without obstruction or gangrene; Anal fissure Start: 03-15-2024 End: 03-15-2024 ambulatory CISCO BONILLA [facility] Start: 03-14-2024 End: 03-14-2024 Orders Only Cisco Bonilla DO Work Phone: [facility] Start: 03-03-2024 End: 03-03-2024 Emergency department patient visit DO Cisco Bonilla Work Phone: [facility] Work Phone: Start: 02-20-2024 End: 02-20-2024 Orders Only Cisco Bonilla DO Work Phone: [facility] Start: 02-17-2024 End: 02-18-2024 Evaluation and management of inpatient JENNYFER AUGUSTIN [facility] Start: 02-13-2024 End: 02-15-2024 Telephone encounter Jennyfer Augustin DO Work Phone: [facility] Start: 02-05-2024 End: 02-05-2024 Orders Only Cisco Bonilla DO Work Phone: [facility] Comment on above: Change in bowel habi ts (Primary Dx); Polyp of colon, unspecified part of colon, unspecified type Start: 02-02-2024 End: 02-02-2024 Patient encounter procedure Didi X Tiffany [facility] Start: 01-31-2024 End: 02-01-2024 Telephone encounter Barbara De La Torre CMA [facility] Start: 01-29-2024 End: 01-30-2024 Emergency department patient visit DO Cisco Bonilla Work Phone: [facility] Work Phone: Start: 12-09-2023 End: 12-09-2023 Office outpatient visit 15 minutes Michelle Francis COSMETICS PRESSER-SCRATCHER Work Phone: [facility] Comment on above: Irritable bowel synd chaitanya with constipation (Primary Dx); Gastroesophageal reflux disease, unspecified whether esophagitis present; 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 ([facility] Start: 03-26-2022 End: 03-26-[address] CISCO BONILLA Facility: Start: 09-01-2021 End: 09-01-2021 ambulatory Tawnya Andre Other [employer] Other Start: 09-01-2021 Office outpatient vi sit 15 minutes Tawnya Andre [facility] Start: 08-11-2021 End: 08-11-2021 ambulatory Mary King Other [employer] Other Start: 08-11-2021 Office outpatient vi sit 15 minutes Mary King [facility] Start: 08-30-2016 End: 08-31-2016 Ambulatory OSIYEMI OSINOWO Facility[facility] Procedures Date Procedure Procedure Detail Performing Clinician Start: 03-19-2025 Open reduction of fr acture with internal fixation Cisco Carrillong DO Work Phone: Start: 03-19-2025 X-ray of right foot Den sherman Furlong DO Work Phone: Start: 03-13-2025 X-ray of right foot Den nis Furlong DO Work Phone: Start: 02-28-2025 [facility] Violette Maurer APRN.SCRATCHER Work Phone: Start: 12-10-2024 Adult depression scr eening assessment Cisco Carcamolong DO Work Phone: Start: 12-10-2024 Lipid 1996 panel - S dereje or Plasma Sahil Bergeron RN Start: 03-15-2024 Follow-up visit Follow-up CISCO Paddy CHAD Start: 03-15-2024 Adult depression scr eening assessment Cisco Carcamolong DO Work Phone: Start: 03-03-2024 Diagnostic radiograp hy of abdomen DO Ciscosherman Carcamolo Work Phone: Start: 02-17-2024 Colonoscopy Cisco Fur long DO Work Phone: Start: 01-29-2024 CT of abdomen and pe lvis without contrast DO Ciscosherman Carrillo Work Phone: Start: 12-09-2023 Adult depression scr eening assessment Michelle Francis COSMETICS PRESSER-SCRATCHER Work Phone: [facility] [employer] [facility]oscopy [employer] Plan of Treatment Date Care Activity Detail Author Start: 02-16-2034 Screening for malign ant neoplasm of colon Colonoscopy [facility] Start: 12-10-2029 Lipid panel Lipid Screening [facility] Start: 12-10-2029 Prostate specific antigen measurement Prostate Cancer Screening Discussion [facility] Start: 12-11-2027 Diabetes Screening Diabetes Screenin g [facility] Start: 12-10-2025 Administration of varicella zoster vaccine Zoster (Shingles) [facility] Comment on above: Postponed from 09/04 (Patient Refused) Start: 12-10-2025 Adult BMI Screening Adult BMI Screen ing [facility] Start: 12-10-2025 COVID-19 Vaccine ( season) COVID-19 Vaccine ( season) [facility] Comment on above: Postponed from 04/22 (Patient Refused) Start: 12-10-2025 Depression Screening [facility] Start: 12-10-2025 Tobacco Screening Tobacco Screening [facility] Start: 09-11-2025 Adult BMI Screening [facility] Start: 09-11-2025 Tobacco Screening Tobacco Screening [facility] Start: 04-22-2025 COVID-19 Vaccine ( season) COVID-19 Vaccine ( season) [facility] Start: 04-22-2025 Influenza vaccination [facility] Start: 04-02-2025 End: 04-02-2025 Admission to same day surgery center 04/02/2025 11:30 AM EDT [facility] Colorectal Surgery [address] [id number] Lydia Drake PA-C [address] [id number] f/u Colorectal Surgery Comment on above: f/u Start: 03-28-2025 End: 03-28-2025 Patient encounter procedure 03/28/2025 1:30 PM EDT OT/PT/Speech Visit [facility] [address] [id number] Belkys Smith, PT, DPT tightness in my rectum, anus i cant push out poop [facility] Comment on above: tightness in my rect um, anus i cant push out poop Start: 03-19-2025 [facility] Start: 03-19-2025 X-ray of right foot XR foot RT 2V Fi [facility] Start: 03-19-2025 XR Foot - right 2 Views [facility] Start: 03-18-2025 [facility] Start: 03-15-2025 End: 03-15-2025 Admission to same day surgery center 03/15/2025 4:30 PM EDT [facility] [address] [id number] George Navarrete DO [address] [id number] [facility] Col[facility] Comment on above: [facility] Start: 03-15-2025 Adult BMI Screening Adult BMI Screen ing [facility] Start: 03-15-2025 Depression Screening Depression Scre ening [facility] Start: 03-15-2025 Tobacco Screening Tobacco Screening [facility] Start: 03-13-2025 X-ray of right foot XR foot RT min 3 V* [facility] Start: 03-13-2025 XR Foot - right GE 3 Views [facility] Start: 02-21-2025 End: 02-21-2025 Patient encounter procedure 02/21/2025 10:30 AM EDT Office Visit General Surgery [address] [address] Jey Kapadia MD [address] [place] [address] Consult Botox Injection General Surgery Comment on above: Consult Botox Inject ion Start: 02-16-2025 Adult BMI Screening Adult BMI Screen ing [facility] Start: 02-16-2025 Screening for malign ant neoplasm of colon [facility] Start: 02-16-2025 Tobacco Screening Tobacco Screening [facility] Start: 02-05-2025 Tobacco Screening Tobacco Screening [facility] Start: 12-10-2024 End: 12-10-2025 CT Chest for screening WO contrast CT low dose lung screening (Annual) Imaging Routine Ex-smoker Expected: 12/10/2024, Expires: 12/10/2025 [facility] Comment on above: Expected: 12/10/2024 , Expires: 12/10/2025 Start: 12-10-2024 End: 12-10-2024 Patient encounter procedure 12/10/2024 1:00 PM EDT Office Visit [facility] [address] [place] [address] Cisco Bonilla DO [address] [facility] [place] [address] [facility] Start: 12-08-2024 Adult BMI Screening Adult BMI Screen ing [facility] Start: 12-08-2024 Depression Screening Depression Scre ening [facility] Start: 12-08-2024 Tobacco Screening Tobacco Screening [facility] Start: 09-26-2024 End: 09-26-2024 Patient encounter procedure 09/26/2024 2:00 PM EST Office Visit [facility] [address] [place] [address] [address] [place] [address] Aníbal Will, [address] [address] [facility] Start: 06-04-2024 End: 06-04-2024 Patient encounter procedure 06/04/2024 2:15 PM EDT Office Visit [facility] [address] [place] [address] Cisco Bonilla DO [address] [facility] [place] [address] [facility] Start: 04-22-2024 Covid-19 Vaccine ( season) Covid-19 Vaccine ( season) [facility] Start: 04-22-2024 COVID-19 Vaccine ( season) COVID-19 Vaccine () [facility] Start: 04-22-2024 Influenza vaccination Influenza Vacc ine [facility] Start: 03-15-2024 End: 03-15-2024 Patient encounter procedure 03/15/2024 3:45 PM EDT Office Visit [facility] [address] [place] [address] Cisco [place], [address], [facility] [place] [address] [facility] Internal Medicine - Family Medicine Start: 02-18-2024 Adult BMI Screening Adult BMI Screen ing [facility] Start: 02-18-2024 Depression Screening Depression Scre ening [facility] Start: 02-18-2024 Tobacco Screening Tobacco Screening [facility] Start: 02-17-2024 End: 02-17-2024 Admission to same day surgery center 02/17/2024 2:30 PM EDT - 02/17/2024 3:30 PM EDT Surgery [facility] [address] [place] [id number] Jennyfer Augustin, DO [address] [place] [address] COLONOSCOPY DIAGNOSTIC / SCREENING [74054 (CPT )] [facility] Comment on above: COLONOSCOPY DIAGNOST IC / SCREENING [23760 (CPT )] Start: 02-17-2024 End: 02-17-2024 Colonoscopy flx dx w/collj spec when pfrmd COLONOSCOPY DIAGNOSTIC / SCREENING change in bowel habits 02/17/2024 2:30 PM EDT [facility] Start: 02-17-2024 Subsequent hospital visit by physician 02/17/2024 2:30 PM EDT Hospital Encounter [facility] [address] [place] [id number] Jennyfer Augustin, DO [address] [place] [address] Change in bowel habits (Primary Dx) [facility] Comment on above: Change in bowel habi ts (Primary Dx) Start: 02-16-2024 End: 02-16-2024 ambulatory 02/16/2024 3:50 PM EDT Support Visit [facility] - Pre Admit [address] [place] [id number] [facility] Start: 01-29-2024 CT Abdomen and Pelvi s WO contrast [facility] Start: 01-29-2024 CT of abdomen and pe lvis without contrast CT abdomen pelvis wo con [facility] Start: 10-28-2023 DTaP,Tdap and Td Vaccines (2 - Td or Tdap) DTaP,Tdap and Td Vaccines (2 - Td or Tdap) [facility] Start: 10-28-2023 Urine microalbumin profile DTaP,Tdap,Td Vaccine (2 - Td or Tdap) [facility] Start: 04-22-2023 COVID-19 Vaccine ( season) COVID-19 Vaccine ( season) [facility] Start: 2018 Administration of varicella zoster vaccine Zoster (Shingles) Vaccine (1 of 2) [facility] Start: 2018 Pneumococcal Vaccine : 50+ (1 of 1 - PCV) Pneumococcal Vaccine: 50+ (1 of 1 - PCV) [facility] Start: 2018 Shingrix Vaccine (1 of 2) Shingrix Vaccine (1 of 2) [facility] Start: 2013 Diabetes Screening Diabetes Screenin g [facility] Start: 2013 Prostate specific antigen measurement Prostate Cancer Screening Discussion [facility] Start: 2013 Screening for malign ant neoplasm of colon [facility] Start: 2003 Lipid panel Lipid Screening [facility] Start: 1987 Hepatitis B Vaccine (1 of 3 - 19+ 3-dose series) Hepatitis B Vaccine (1 of 3 - 19+ 3-dose series) [facility] Start: 1987 Pneumococcal Vaccine : 50+ (1 of 2 - PCV) Pneumococcal Vaccine: 50+ (1 of 2 - PCV) [facility] Start: 1987 Shingrix Vaccine (1 of 2) Shingrix Vaccine (1 of 2) [facility] Start: 1987 Urine microalbumin profile DTaP,Tdap,Td Vaccine (1 - Tdap) [facility] Start: 1986 Adult BMI Follow Up Plan Adult BMI Follow Up Plan [facility] Start: 1986 Anxiety Screening Anxiety Screening [facility] Start: 1986 Depression Screening Depression Scre ening [facility] Start: 1986 Hepatitis C screening Hepatitis C Sc reening [facility] Start: 1986 HIV screening HIV Screening [facility] End: 09-11-2025 CBC panel - Blood by Automated count CBC Lab Routine Irritable bowel syndrome with both constipation and diarrhea Essential hypertension, benign 1 Occurrences starting 09/11/2024 until 09/11/2025 [facility] Comment on above: 1 Occurrences starti ng 09/11/2024 until 09/11/2025 End: 12-10-2025 CBC panel - Blood by Automated count CBC without diff Lab Routine Hypogonadism in male 1 Occurrences starting 12/10/2024 until 12/10/2025 [employer] Comment on above: 1 Occurrences starti ng 12/10/2024 until 12/10/2025 End: 02-04-2025 Colonoscopy Colonoscopy GI Routine Change in bowel habits Polyp of colon, unspecified part of colon, unspecified type 1 Occurrences starting 02/05/2024 until 02/04/2025 [employer] Work Phone: Comment on above: 1 Occurrences starti ng 02/05/2024 until 02/04/2025 Colonoscopy flx dx w/collj spec when pfrmd COLONOSCOPY DIAGNOSTIC / SCREENING Change in bowel habits [facility] End: 09-11-2025 Comprehensive metabolic 2000 panel - Serum or Plasma Comprehensive metabolic panel Lab Routine Essential hypertension, benign 1 Occurrences starting 09/11/2024 until 09/11/2025 [employer] Comment on above: 1 Occurrences starti ng 09/11/2024 until 09/11/2025 End: 12-10-2025 Comprehensive metabolic 2000 panel - Serum or Plasma Comprehensive metabolic panel Lab Routine Well adult exam 1 Occurrences starting 12/10/2024 until 12/10/2025 [employer] Work Phone: Comment on above: 1 Occurrences starti ng 12/10/2024 until 12/10/2025 End: 12-10-2025 Iron [Mass/volume] in Serum or Plasma Iron level Lab Routine Iron overload 1 Occurrences starting 12/10/2024 until 12/10/2025 [employer] Comment on above: 1 Occurrences starti ng 12/10/2024 until 12/10/2025 End: 12-10-2025 Lipid 1996 panel - Serum or Plasma Lipid profile Lab Routine Well adult exam 1 Occurrences starting 12/10/2024 until 12/10/2025 [employer] Comment on above: 1 Occurrences starti ng 12/10/2024 until 12/10/2025 Patient Education [facility] Work Phone: Patient referral [facility] Work Phone: End: 09-11-2025 Prostatic specific antigen screen Prostatic specific antigen screen Lab Routine Encounter for screening for malignant neoplasm of prostate 1 Occurrences starting 09/11/2024 until 09/11/2025 [employer] Comment on above: 1 Occurrences starti ng 09/11/2024 until 09/11/2025 End: 12-10-2025 Prostatic specific antigen screen Prostatic specific antigen screen Lab Routine Encounter for screening for malignant neoplasm of prostate 1 Occurrences starting 12/10/2024 until 12/10/2025 [employer] Comment on above: 1 Occurrences starti ng 12/10/2024 until 12/10/2025 End: 09-11-2025 TSH with Reflex TSH with Reflex Lab Routine Irritable bowel syndrome with both constipation and diarrhea Essential hypertension, benign Anxiety 1 Occurrences starting 09/11/2024 until 09/11/2025 [employer] Work Phone: Comment on above: 1 Occurrences starti ng 09/11/2024 until 09/11/2025 End: 12-10-2025 TSH with Reflex TSH with Reflex Lab Routine Anxiety Overweight 1 Occurrences starting 12/10/2024 until 12/10/2025 [employer] Comment on above: 1 Occurrences starti ng 12/10/2024 until 12/10/2025 XR Foot - right GE 3 Views [facility] Immunizations Immunization Date Immunization Notes Care Provider [facility] 06-20-2021 influenza virus vaccine, unspecified formulation Michelle Francis COSMETICS PRESSER[employer]SCRATCHER Work Phone: [facility] 06-20-2021 influenza, injectabl e, quadrivalent, preservative free Michelle Tito COSMETICS PRESSER-SCRATCHER Work Phone: [employer] 06-20-2021 SARS-CoV-2 (COVID-19 ) mRNA BNT-162x6 vax Didi Orzech [facility] 12-08-2020 SARS-CoV-2 (COVID-19 ) mRNA BNT-162b2 vax Didi Orzech [facility] 11-18-2020 SARS-CoV-2 (COVID-19 ) mRNA BNT-162b2 vax Didi Orzech [facility] 04-06-2020 influenza virus vaccine, unspecified formulation Didi Orzedavid [facility] 04-06-2020 influenza, injectabl e, quadrivalent, preservative free Michelle Tito COSMETICS PRESSER-SCRATCHER Work Phone: [facility] 06-07-2019 influenza virus vaccine, unspecified formulation Didi Orzachery [facility] 06-07-2019 influenza, injectabl e, quadrivalent, preservative free Michelle Tito COSMETICS PRESSER-SCRATCHER Work Phone: [facility] 10-27-2013 tetanus toxoid, redu brock diphtheria toxoid, and acellular pertussis vaccine, adsorbed Michelle Tito COSMETICS PRESSER-SCRATCHER Work Phone: [facility] Payers Date Payer Category Payer Self-pay [id number] 2024 Medicaid [id number] 2024 Medicaid [id number] 1968 Unknown [id number] [id number] 1968 Unknown [id number] 2.16.840.1.994338.3.579.2.1286 1968 Unknown [id number] 2.16.840.1.201425.3.579.2.1286 1968 Unknown [id number] 2.16.840.1.027910.3.579.2.1286 1968 Unknown [id number] 2.16.840.1.591926.3.579.2.1286 1968 Unknown [id number] 2.16.840.1.699412.3.579.2.1286 1968 Unknown [id number] 2.16.840.1.331820.3.579.2.128 1968 Unknown [id number] 2.16.840.1.653023.3.579.2.128 1968 Unknown [id number] 2.16.840.1.355024.3.579.2.1285 1968 Unknown [id number] 2.16.840.1.819552.3.579.2.7 1968 Unknown [id number] 2.16.840.1.883033.3.579.2.7 1968 Unknown [id number] 2.16.840.1.888240.3.579.2.727 1968 Unknown [id number] 2.16.840.1.272403.3.579.2.727 1968 Unknown [id number] 2.16.840.1.698685.3.579.2.727 1959 Private Health Insurance [id number] Medicaid [id number] Unknown [id number] 2.1 [id number] Unknown Wilver BC/BS [id number] Unknown [id number] 2.16.840.1.772020.3.579.2.531 Unknown [id number] 2.16.840.1.224803.3.579.2.531 Unknown [id number] 2.16.840.1.819011.3.579.2.531 Social History Date Type Detail Facility Unknown if ever smoked [employer] Other Start: 08-01-2022 End: 09-11-2024 Sex Assigned At [facility] Start: 07-23-1985 End: 03-03-2024 Tobacco smoking status NHIS Smoker (finding) [facility] Start: 1970 Sex Assigned At Male [facility] Start: 12-09-2023 End: 02-02-2024 Tobacco smoking status Ex-smoker (finding) [facility] Start: 11-11-2015 Tobacco smoking status Never [facility] Start: 07-23-1985 End: 12-20-2018 History of tobacco use Cigarette Smoker [facility] Start: 08-01-2022 End: 12-09-2023 Cigarettes smoked current (pack per day) - Reported 1 [facility] History of tobacco use Passive smoker [facility] Start: 12-09-2023 Tobacco use and exposure Smokeless tobacco non-user [facility] Start: 09-11-2024 End: 12-10-2024 Alcoholic beverage intake Current drinker of alcohol (finding) [facility] Has the [employer], [employer], [employer] (now [employer]), or water [employer] threatened to shut off services in your home in past 12Mo Yes [facility] Are you now , , , , never or living with a partner? Never [facility] How often to you hav e a drink containing alcohol? Monthly or less [facility] How often do you hav e 6 or more drinks on 1 occasion? Less than monthly [facility] How hard is it for y ou to pay for the very basics like food, housing, medical care, and heating Very hard [facility] Do you feel stress - tense, restless, nervous, or anxious, or unable to sleep at night because your mind is troubled all the time - these days [OSQ] Very much [facility] Start: 08-01-2022 Education [facility] Start: 08-04-2022 Tobacco Comment vape, today [facility] Start: 10-12-2019 Alcohol Comment Occasional [facility] Start: 1970 Sex assigned at Not on file [employer] [facility] Start: 03-27-2015 Sex Male (finding) [employer] [facility] How many standard drinks containing alcohol do you have on a typical day? 10 or more [facility] Sexual Orientation [facility] Tobacco smoking stat us NHIS Tobacco smoking consumption unknown [facility] Start: 03-03-2024 End: 03-19-2025 Tobacco smoking status NHIS Smokes tobacco daily (finding) [facility] Start: 03-07-2025 Gender identity Identifies as male gender (finding) [facility] Start: 03-07-2025 Sexual orientation Heterosexual (finding) [facility] Medical Equipment Procedure Code Equipment Code Equipment Origin al Text Equipment Identifier Dates ORIF, fracture, wrist Orthopaedic bone screw (non-sliding) [id number] FDA Start: 03-19-2025 Goals Date Patient Goal Desired Activity /State Personal health goal Comment on above: Formatting of this n ote might be different from the original. Evaluation of progress towards goal: with support from friends and family, patient needs to fllow up with [facility] Functional Status Date Assessment Result Facility 01-09-2025 Functional Status N/A [facility] 02-02-2024 Functional Status N/A [facility] Clinical Notes 08-11-2021 to 04-03-2025 Lydia Drake PA-C - 04/03/2025 8:29 AM EDLydia Rivers PA-C - 04/02/2025 11:30 AM EDTTelephone Encounter - Lydia Drake PA-C - 03/07/2025 1:37 PM EDTPatient Instructions Note Date & Type Note Facility 04-03-2025 Note HNO ID: [id number] Author: LYDIA DRAKE PA-C Service: ? Author Type: Physician [employer] Operations Specialist Type: Progress Notes Filed: 04/03/2025 08:41 Note [...] Anticipated surgical procedure: none Lydia Drake PA-C [facility] 04-03-2025 History of Presen t illness [...] Lydia Drake PA-C documented in this encounter [facility] 04-02-2025 History of Presen t illness Narrative COLORECTAL SURGERY VIRTUAL VISIT FOLLOW UP 04/02/2025 I have communicated my name and active licensure. The patient's identity and physical location were verified at the time of this visit. Either the patient or their legal car sales representative has been informed of the [...] February 28, 2025. He was referred to [facility] for anorectal manometry by Dr. [...] laxatives and stool softeners; consider referral to [facility] if unable to see local [...] evaluate and manage orthostatic symptoms. Recording using [employer] software for draft documentation of the visit was discussed with the patient/authorized car sales representative; all questions welcomed and answered. Patient/authorized car sales representative agreed to proceed Lydia Drake PA-C [employer] I spent a total of 33 minutes on the date of the service which included preparing to see the patient, [id number] patient care, completing clinical documentation, obtaining and/or reviewing separately obtained history, performing a medically appropriate examination, counseling and educating the patient/family/caregiver, communicating with other HCPs (not separately reported), and care coordination (not separately reported). documented in this encounter [facility] 04-02-2025 Note HNO ID: [id number] Author: LYDIA DRAKE PA-C Service: ? Author Type: Physician [employer] Source Operations Specialist Type: Progress Notes Filed: 04/02/2025 12:17 Note Text: COLORECTAL SURGERY VIRTUAL VISIT FOLLOW UP 04/02/2025 I have communicated my name and active licensure. The patient's identity and physical location were verified at the time of this visit. Either the patient or their legal car sales representative has been informed of the [...] February 28, 2025. He was referred to [facility] for anorectal manometry by Dr. [...] trials of [employer] (more content not included)... [facility] 03-07-2025 Telephone encounter Note Called patient [...] ED with worsening sx. Lydia Drake PA-C [facility] 03-07-2025 Miscellaneous Notes Called patient [...] worsening sx. Lydia Drake PA-C Chai Barr Miahz - [phone] Patient contacted the office regarding the baclofen that was prescribed to him. He reported that his back is feeling tighter than before and believes that a taking all these different medications may be causing this side effect. Unsure on what he should do. documented in this encounter [facility] 03-07-2025 Telephone encounter Note Chai Arnold - [phone] Patient contacted the office regarding the baclofen that was prescribed to him. He reported that his back is feeling tighter than before and believes that a taking all these different medications may be causing this side effect. Unsure on what he should do. [facility] 02-28-2025 Instructions Lydia Drake PA-C - 02/28/2025 1:31 PM EDT We discussed your chronic constipation and pelvic floor dysfunction: - I recommend starting baclofen suppositories, a muscle relaxer, to help with spasms and pain. Use one suppository as needed, up to twice daily. This prescription has been sent to [facility] in [place]. - Begin pelvic floor physical therapy to [...] for you. To make an appointment through [facility] call : [phone] If you are not close to a [facility] location, you can visit any one of these sites. Just put your zip code in and Pelvic Floor Physical Therapy places near you will populate. - [email or web address] - [email or web address] - [email or web address] - [email or web address] documented in this encounter [facility] 02-28-2025 History and physical note [...] a compounded preparation from a pharmacy in [place], and previously used hydrocortisone. He has not [...] Weak - Relaxation on pushing: Minimal - Bond Clerk Present: Yes Bond Clerk present: Yes, Arabella Assessment Anorectal Physiology tests [...] which included preparing to see the patient, [id number] patient care, completing clinical documentation, obtaining and/or reviewing separately obtained history, performing a medically appropriate examination, counseling and educating the patient/family/caregiver, ordering medications, tests, or procedures, communicating with other HCPs (not separately reported), independently interpreting results (not separately reported), and communicating results to the patient/family/caregiver. Recording using [employer] software for draft documentation of the visit was discussed with the patient/authorized car sales representative; all questions welcomed and answered. Patient/authorized car sales representative agreed to proceed [facility] 02-28-2025 History and physical note [...] a compounded preparation from a pharmacy in [place], and previously used hydrocortisone. He has not [...] Weak - Relaxation on pushing: Minimal - Bond Clerk Present: Yes Bond Clerk present: Yes, Arabella Assessment Anorectal Physiology tests [...] which included preparing to see the patient, [id number] patient care, completing clinical documentation, obtaining and/or reviewing separately obtained history, performing a medically appropriate examination, counseling and educating the patient/family/caregiver, ordering medications, tests, or procedures, communicating with other HCPs (not separately reported), independently interpreting results (not separately reported), and communicating results to the patient/family/caregiver. Recording using [employer] software for draft documentation of the visit was discussed with the patient/authorized car sales representative; all questions welcomed and answered. Patient/authorized car sales representative agreed to proceed documented in this encounter [facility] 02-18-2025 Evaluation note Diagnosis Onset Date Resolution Fracture of fifth metatarsal bone of right foot acute February 18, 2025 1:30pm Fracture of fifth metatarsal bone of right foot acute March 13, 2025 3:11pm [facility] Work Phone: [phone]) 812-748406-30-2025 Evaluation note* Diagnosis Onset Date Resolution Status Admit Date Fracture of fifth metatarsal bone of right foot acute February 18 1:30pm Fracture of fifth metatarsal bone of right foot acute March 13 3:11pm Fracture of fifth metatarsal bone of right foot acute April 08, 2025 9:12am Other specified postprocedur al states noneactive April 08 9:12am [facility] Work Phone: 1(538) 534-566806-23-2025 Telephone encounter Note* Telephone Encounter - Chelle Christianson - 02/11/2025 9:38 AM EDT Recevied referral from [facility] fot pt referral for botox injections [facility]06-23-2025 Miscellaneous Notes* Telephone Encounter - Chelle Christianson - 02/11/2025 9:38 AM EDT Recevied referral from [facility] fot pt referral for botox injections [facility] Miscellaneous Notes* Telephone Encounter - Linad Marc CMA - 12/31/2024 9:34 AM EDT I called and left message for pt to call back. Regarding his referral to Gastroenterology. George Alcaraz is retired. * Telephone Encounter - Barbara De La Torre CMA - 12/31/2024 9:34 AM EDT Can we send referral to Dr. Moreno in [place] [facility] Telephone encounter Note* Telephone Encounter - Linda Marc CMA - 12/31/2024 9:34 AM EDT I called and left message for pt to call back. Regarding his referral to Gastroenterology. George Alcaraz is retired. [facility]05-12-2025 Telephone encounter Note* Telephone Encounter - Barbara De La Torre CMA - 12/31/2024 9:34 AM EDT Can we send referral to Dr. Moreno in [place] [facility]04-28-2025 Miscellaneous Notes* Telephone Encounter - Barbara De La Torre CMA - 12/17/2024 3:24 PM EDT Patient called and stated he missed his apt in [place] with jaylyn/ent so they will not see him anymore. Can you refer him to someone else. * Telephone Encounter - Cisco Bonilla DO - 12/17/2024 3:24 PM EDT Okay. I sent another referral this time to a battery assembler in [place] -Dr. Alcaraz. If he can not make [...] usually routine to do. [facility] Telephone encounter Note* Telephone Encounter - Barbara De La Torre CMA - 12/17/2024 3:24 PM EDT Patient called and stated he missed his apt in [place] with jaylyn/ent so they will not see him anymore. Can you refer him to someone else. [employer] [id number] Telephone encounter Note* Telephone Encounter - Cisco Bonilla DO - 12/17/2024 3:24 PM EDT Okay. I sent another referral this time to a battery assembler in [place] -Dr. Alcaraz. If he can not make [...] treatment which is usually routine to do. [facility] [id number] History of Present illness Narrative* Cisco Bonilla [...] reveal any inflammatory bowel disease. Thegastroenterologist in [place] did not want to see him. He [...] appear clear Nose: Nose normal. Mouth/Throat: Lips: [place]. Mouth: Mucous membranes are moist. Dentition: Abnormal [...] and irritable bowel syndrome. 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 OUT documented [facility]25 Miscellaneous Notes* Telephone Encounter - Marisa Reinoso - 09/26/2024 2:19 PM EST New Patient NS 09/26/2024 * Telephone Encounter - Suki Islas RN - 09/26/2024 2:19 PM EST Discharge [facility] encounter Note* Telephone Encounter - Marisa Rienoso - 09/26/2024 2:19 PM EST New Patient NS 09/26/2024 [facility] Telephone encounter Note* Telephone Encounter - Suki Islas RN - 09/26/2024 2:19 PM EST Discharge entered [facility]01-22-[facility]25 Miscellaneous Notes* Telephone Encounter - Betty Wild - 09/12/2024 2:21 PM EST Alok nj is refusing to see him since Dr augustin did his colonoscopy. He wants him to see patrizia as a specialist instead. Alok augustin started it that is who he needs to follow up with explained to alok office that he does not specialize in [...] a referral to GI specialist at [facility] documented in [facility] Tele[facility] encounter Note* Telephone Encounter - Bettygeorge Wild - 09/12/2024 2:21 PM EST Lawrence [...] why we referred him to a specialist [facility] Telephone encounter Note* Telephone Encounter - Bettygeorge Wild - 09/12/2024 2:21 PM EST Can we get this as an urgent referral [facility]01-22-[facility] Telephone encounter Note* Telephone Encounter - Cisco Bonilla DO - 09/12/2024 2:21 PM EST Send a referral to GI specialist at [facility] Miscellaneous Notes* Telephone Encounter - Bettygeorge Wild - 09/12/2024 1:47 PM EST Patient called, metamucil is not covered by insurance but they will cover benifiber 240g [facility] [place] [facility] in [facility] Telephone encounter Note* Telephone Encounter - Bettygeorge Wild - 09/12/2024 1:47 PM EST Patient called, metamucil is not covered by insurance but they will cover benifiber 240g [facility] [place] [facility] [id number] History of Present illness Narrative* Cisco Bonilla [...] have an appointment coming up with a battery assembler in September. He had to cancel his last appointment because he was having diarrhea and was afraid to leave the house because he might have an accident. The ER did give him Bentyl which did help. He did not think that less than helped at all. He stopped the FiberCon because it was not helping. He would rather have Metamucil. He called the battery assembler office and they suggested a cleaned out. [...] Exam Vitals reviewed. Exam conducted with a shower screen installer present (Leilani Han MS 3). Constitutional: General: [...] mouth in the morning. documented in this encounterH[facility]24 Miscellaneous Notes* Telephone Encounter - Bettygeorge Wild - 04/04/2024 10:24 AM EDT ----- Message from Dr. Cisco Bonilla DO sent at 03/15/2024 7:03 PM EDT ----- Regarding: GI/BP recheck Please set up * Telephone Encounter - Bettygeorge Wild - 04/04/2024 10:24 AM EDT Mailbox full * Telephone Encounter - Betty Torri - 04/04/2024 10:24 AM EDT Scheduled documented in this encounterH[facility]08-14-2024 Telephone encounter Note* Telephone Encounter - Bettygeorge Wild - 04/04/2024 10:24 AM EDT ----- Message from Dr. Cisco Bonilla DO sent at 03/15/2024 7:03 PM EDT ----- Regarding: GI/BP recheck Please set up [facility] Telephone encounter Note* Telephone Encounter - Bettygeorge Wild - 04/04/2024 10:24 AM EDT Mailbox full [facility] Telephone encounter Note* Telephone Encounter - Betty Wild - 04/04/2024 10:24 AM EDT Scheduled [facility] History of Present illness Narrative* Cisco Bonilla, - 03/15/2024 3:45 PM EDT Subjective Patient [...] was getting liquidy stools-6 and 7 on [place] stool scale. He used fiber supplement in [...] needed for pain (cramping). documented in this encounterH[facility]06-24-2024 Miscellaneous Notes* Telephone Encounter - Betty [...] GoLYTELY sent to pharmacy documented in this encounterH[facility]06-[facility]-2024 Telephone encounter Note* Telephone Encounter - Betty Wild - 02/13/2024 12:02 PM EDT Patient said susame is 130 dollars, is there something else he can try or a coupon to use [facility] Telephone encounter Note* Telephone Encounter - Linda Marc CMA - 02/13/2024 12:02 PM EDT Pt has medicaid My Bad Please SEND in the SUPREP. . [facility] Telephone encounter Note* Telephone Encounter - Jennyfer Augustin DO - 02/13/2024 12:02 PM EDT Message noted. The only prep that is covered is the old fashioned Golytely prep [facility]24 Telephone encounter Note* Telephone Encounter - Gloria Rodriguez CMA - 02/13/2024 12:02 PM EDT He is Medicaid so whatever his insurance covers [facility] Telephone encounter Note* Telephone Encounter - Jennyfer Augustin DO - 02/13/2024 12:02 PM EDT Message noted. Rx for GoLYTELY sent to pharmacy [facility] Miscellaneous Notes* Telephone Encounter - Barbara [...] EDT Left message via documented in this encounterH[facility]06-11-2024 Telephone encounter Note* Telephone Encounter - Barbara De La Torre CMA - 01/31/2024 3:09 PM EDT Patient called and was in the ER for Urinary re tension. His bowel movements ar still not good. Since I can not get him in for an ER follow up soon what do you suggest he do? He does see urology on [facility] Telephone encounter Note* Telephone Encounter - Cisco Bonilla DO - 01/31/2024 3:09 PM EDT He can use MiraLax 17 g in 8 oz of water daily [facility] Telephone encounter Note* Telephone Encounter - Barbara De La Torre CMA - 01/31/2024 3:09 PM EDT Left message via [facility] [id number] History of Present illness Narrative* Michelle Francis APRN-LIDA - 12/09/2023 9:00 AM EDT [address] [place] [id number] Patient: Chai Arnold Date of : 1970 [...] softeners pencilthin like a 4. On the [place] stool scale and he has tried Metamucil and MiraLax. He denies any hemorrhoids or blood in his stool. His last colonoscopy was 4 years ago that showed polyps and diverticulosis and he knows he is due for another colonoscopy next year. Patient has been struggling with weaning off his Xanax. 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 Resources such as Suboxone Clinic in [place] were given. It was also recommended that he apply at [facility] for primary care services and [...] LEVIN APRN-CNP 12/09/23 1230 documented in this encounterH[facility]01-11-2022 Evaluation note* Encounter Date Diagnosis Assessment [...] Patient care instructions given in writting by [facility] document. [employer] Other 12-21-2021 Evaluation note* Encounter Date Diagnosis [...] Patient care instructions given in writting by [facility] document. [employer] Other Evaluation + Plan note Future Appointments Appointment Date:04/03/2024 01:00:00 PM Scheduled Provider:JOSEPH Allen APRN, [place] X Location:[facility] Appointment Type:URO Office Visit [facility] Evaluation + Plan note Future Appointments Appointment Date:04/11/2025 10:45:00 AM Scheduled Provider:Vivian Brady MD Location:[facility] Appointment Type:BADH Follow [facility] Evaluation noteNo assessment information available [facility] Work Phone: Evaluation note* Diagnosis Irritable bowel syndrome with both constipation and diarrhea- Primary Essential hypertension, benign Anxiety Anxiety state, unspecified Encounter for screening for malignant neoplasm of prostate documented [facility]* Diagnosis Irritable bowel syndrome with both constipation and diarrhea- Primary documented in this [facility]* Diagnosis Irritable bowel syndrome with constipation- Primary Irritable bowel syndrome Gastroesophageal reflux disease, unspecified whether esophagitis present 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 (CMS-HCC) documented in this encounter [facility]* Diagnosis Change in bowel habits- Primary Other symptoms involving digestive system Polyp of colon, unspecified part of colon, unspecified type documented in this encounter [facility]* Diagnosis Irritable bowel syndrome with both constipation and diarrhea- Primary Umbilical hernia without obstruction and without gangrene Incisional hernia, without obstruction or gangrene Anal fissure documented in this encounter [facility]* Diagnosis Well adult [...] constipation and diarrhea documented in this encounter [facility]* Diagnosis Anal fissure- Primary documented in this encounter [facility]* Diagnosis Irritable bowel syndrome with both constipation and diarrhea- Primary documented in this encounter [facility]* Diagnosis Chronic idiopathic constipation- Primary Unspecified constipation Hepatitis C virus infection without hepatic coma, unspecified chronicity documented in this encounter [facility]* Diagnosis 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 Outlet dysfunction constipation Stress-related physiological response affecting medical condition Psychic factors associated with diseases classified elsewhere documented in this encounter [facility]* Diagnosis Onset Date Resolution Status Admit Date Fracture of fifth metatarsal bone of right foot acute February 18, 2025 1:30pm [facility] Work Phone: Evaluation note* Diagnosis Pelvic floor dysfunction Pelvic muscle wasting Pelvic floor dysfunction- Primary Pelvic muscle wasting Rectal spasm Anal spasm Constipation, unspecified constipation type documented in this encounter [facility]* Diagnosis Pelvic floor dysfunction- Primary Pelvic muscle wasting Rectal spasm Anal spasm Constipation, unspecified constipation type documented in this encounter [facility]* Diagnosis Anxiety Anxiety state, unspecified documented in this encounter [facility]* Diagnosis Constipation, unspecified constipation type- Primary Rectal spasm Anal spasm Pelvic floor dysfunction Pelvic muscle wasting Anxiety Anxiety state, unspecified Distressed about housing issues Other specified housing or economic circumstances Orthostatic dizziness documented in this encounter [facility]* Diagnosis Rectal spasm- Primary Anal spasm Constipation, unspecified constipation type Pelvic floor dysfunction Pelvic muscle wasting Anxiety Anxiety state, unspecified Chronic abdominal pain Abdominal pain, unspecified site Chronic rectal pain Anal or rectal pain documented in this encounter [facility]* Diagnosis Anal fissure- Primary documented in this encounter [facility] Narrative - Reported* Type Description Date Medical History insomnia Medical History anxiety Medical History HTN Surgical History appendix removed Surgical History compartment syndrome left hand 2016 Hospitalization History see surgical hx [facility] Other Hospital course Narrative No data available for this section [facility] Hospital Discharge instructions Additional Instructions Wear leg bag with [place] catheter Follow-up with urology Return if symptoms are [facility] Work Phone: Hospital Discharge instructions No data available for this section [facility] Hospital Discharge instructions Additional Instructions Dr. [...] wearing your boot. You may take NSAIDs/Tylenol [id number] as indicated on the bottle. You should [...] be scheduled with Dr. Avina's office at [facility]. At your follow-up we will remove your splint and sutures. Please call to confirm your follow-up appointment. Dr. Ehsan Avina [facility] [address] [place] [id number] [facility] Work Phone: Instructions* Attachments The following attachments cannot be sent through Care Everywhere. * IBS Diet (Serbian) documented in this encounterProMercy Health St. [facility] HospitalArteris Health SystemInstructionsNot on file documented in this encounterProAthens-[facility] SystemInstructionsNot on file documented in this encounterProMercy Health St. Joseph Warren HospitalNanoNord SystemInstructionsNot on file documented in this encounterProMercy Health St. Joseph Warren HospitalNanoNord SystemInstructionsNot on file documented in this encounterProMercy Health St. Joseph Warren HospitalNanoNord SystemInstructionsNot on file documented in this encounterProMercy Health St. Joseph Warren HospitalNanoNord SystemInstructionsNot on file documented in this encounterProMercy Health St. Joseph Warren HospitalArteris Health SystemInstructionsNot on file documented in this encounterProMercy Health St. Joseph Warren HospitalNanoNord SystemInstructionsNot on file documented in this encounterProMercy Health St. Joseph Warren HospitalNanoNord SystemInstructionsNot on file documented in this encounterProMercy Health St. Joseph Warren HospitalNanoNord SystemInstructionsNot on file documented in this encounterProMercy Health St. Joseph Warren HospitalNanoNord SystemInstructionsNot on file documented in this encounterProMercy Health St. Joseph Warren HospitalNanoNord SystemInstructionsNot on file documented in this encounterProMedica Health SystemInstructionsNot on file documented in this encounterProMedict Health SystemInstructionsNot on file documented in this encounterProAthens-Limestone Hospital Health SystemProgress note No data available for this section [facility] Reason for referral (narrative)* Medication Prior Authorization - Pending Review Specialty Diagnoses / Procedures Referred By Contac t Referred To Contact Cisco Bonilla DO [address] [facility] [place] [address] Phone: tel: fax: Referral ID Status Reason Start Date Expiration Date V isits Requested Visits Authorized [id number] Pending Review 1 1 [facility] SystemReason for referral (narrative)* Medication Prior Authorization - Pending Review Specialty Diagnoses / Procedures Referred By Contac t Referred To Contact Cisco Bonilla DO [address], [facility] [place] [address] Phone: tel: fax: Referral ID Status Reason Start Date Expiration Date V isits Requested Visits Authorized [id number] Pending Review 1 1 [facility] SystemReason for referral (narrative)* Medication Prior Authorization - Pending Review Specialty Diagnoses / Procedures Referred By Contac t Referred To Contact Cisco Bonilla DO [address], [facility] [place] [address] Phone: tel: fax: Referral ID Status Reason Start Date Expiration Date V isits Requested Visits Authorized [id number] Pending Review 1 1 [facility] SystemReason for referral (narrative)No reason for referral information availableL[facility] Work Phone: Summary Purpose Family History Relationship Condition Age at Onset Recorded Date/T amanuel father Heart disease Unknown mother Rheumatoid arthritis Unknown Advance Directives Advance Directive Response Recorded Date/ [...] Cisco Bonilla DO [address], [facility] [place] [address] Referral ID Status Reason Start Date Expiration Date V isits Requested Visits Authorized [id number] Pending Review 03/14/2024 03/14/2025 1 1 Specialty Diagnoses / Procedures Referred By Contac t Referred To Contact Diagnoses Change in bowel habits Polyp of colon, unspecified part of colon, unspecified type Procedures Colonoscopy Cisco Bonilla DO [address], [place] [address] Referral ID Status Reason Start Date Expiration Date V isits Requested Visits Authorized [id number] Pending Review 02/05/2024 02/04/2025 1 1 Additional Source Comments (unrecognized sect ion and content) No Status Records FoundNo Status Records FoundNo Status Records FoundNo Status Records FoundNo Status Records FoundNo Status Records FoundNo Status Records FoundNo Status Records Found INFORMATION SOURCE (unrecogn ized section and content) DATE CREATED AUTHOR 02/14/2018 [facility] DATE CREATED AUTHOR AUTHOR'S ORGANIZ ATION 03/29/2022 [facility] DATE CREATED AUTHOR AUTHOR'S ORGANIZ ATION 05/18/2024 [facility] DATE CREATED AUTHOR AUTHOR'S ORGANIZ ATION 12/10/2024 [facility] DATE CREATED AUTHOR AUTHOR'S ORGANIZ ATION 12/11/2024 [facility] DATE CREATED AUTHOR AUTHOR'S ORGANIZ ATION 03/31/2025 [facility] DATE CREATED AUTHOR AUTHOR'S ORGANIZ ATION 04/03/2025 [facility] DATE CREATED AUTHOR AUTHOR'S ORGANIZ ATION 05/13/2025 [facility] REASON FOR VISIT (unrecogniz ed section [...] INSTITUTE Diagnoses Pelvic floor dysfunction Procedures ADULT [place] ANORECTAL MANOMETRY ANORECTAL MANOMETRY Violette Maurer, DAVID.SCRATCHER [address] [place] [address] Phone: tel: fax: [facility] [address] [place] [address] Referral ID Status Reason Start Date Expiration Date V isits Requested Visits Authorized [id number] Closed Auto-Generate d Referral 02/21/2025 08/21/2025 1 1 Reason Comments New Patient Pelvic floor dysfunc tion Specialty Diagnoses / Procedures Referred By Hung almanzar Referred To Contact [facility] Diagnoses Pelvic floor dysfunction Procedures ADULT [place] ANORECTAL MANOMETRY ANORECTAL MANOMETRY Violette Maurer, DAVID.SCRATCHER [address] [place] [address] Phone: tel: fax: [facility] [address] [place] [address] Referral ID Status Reason Start Date Expiration Date V isits Requested Visits Authorized [id number] Closed Auto-Generate d Referral 02/21/2025 08/21/2025 1 1 Reason Comments Patient Update Reason Onset Date Comments Med Refill 03/22/2025 Reason Comments Established Patient Reason Comments Pelvic Floor Conference Reason Onset Date Comments Med Refill 05/13/2025 Care Teams (unrecognized sec tion and content) [...] March 03, 2024 End: March 03, 2024 Embalmer Assistant Relationship Specialty Start Date End Date Cisco Bonilla DO [address], [place] [address] PCP - General Family Medicine 12/19/19 Embalmer Assistant Relationship Specialty Start Date End Date Cisco Bonilla PaddyDO [address], [place] [address] PCP - General Family Medicine 12/19/19 Embalmer Assistant Relationship Specialty Start Date End Date Cisco Bonilla DO [address], [place] [address] PCP - General Family Medicine 12/19/19 Embalmer Assistant Relationship Specialty Start Date End Date Cisco Bonilla DO [address], [place] [address] PCP - General Family Medicine 12/19/19 Embalmer Assistant Relationship Specialty Start Date End Date Cisco Bonilla DO [address] [place] [address] PCP - General Family Medicine 12/19/19 Embalmer Assistant Relationship Specialty Start Date End Date Cisco Bonilla DO [address] [place] [address] PCP - General Family Medicine 12/19/19 Embalmer Assistant Relationship Specialty Start Date End Date Cisco Bonilla DO [address] [place] [address] PCP - General Family Medicine 12/19/19 Embalmer Assistant Relationship Specialty Start Date End Date Cisco Bonilla DO [address] [place] [address] PCP - General Family Medicine 12/19/19 Embalmer Assistant Relationship Specialty Start Date End Date Cisco Bonilla DO [address] [place] [address] PCP - General Family Medicine 12/19/19 Embalmer Assistant Relationship Specialty Start Date End Date Cisco Bonilla DO [address] [place] [address] PCP - General Family Medicine 12/19/19 Embalmer Assistant Relationship Specialty Start Date End Date Cisco Bonilla DO [address] [place] [address] PCP - General Family Medicine 12/19/19 Embalmer Assistant Relationship Specialty Start Date End Date Cisco Bonilla DO [address] [place] [address] PCP - General Family Medicine 12/19/19 Embalmer Assistant Relationship Specialty Start Date End Date Carlos AlbertolindenCisco cao DO [address] [place] [address] PCP - General Family Medicine 12/19/19 Embalmer Assistant Relationship Specialty Start Date End Date Carlos AlbertolindenCisco cao DO [address] [place] [address] PCP - General Family Medicine 12/19/19 Embalmer Assistant Relationship Specialty Start Date End Date Carlos AlbertolindenCisco cao DO [address] [place] [address] PCP - General Family Medicine 12/19/19 Embalmer Assistant Relationship Specialty Start Date End Date Cisco Bonilla DO [address] [place] [address] PCP - General Family Medicine 12/19/19 Embalmer Assistant Relationship Specialty Start Date End Date Cisco Bonilla DO [address] [place] [address] PCP - General Family Medicine 12/19/19 Embalmer Assistant Relationship Specialty Start Date End Date Carlos AlbertolindenCisco cao DO [address] [place] [address] PCP - General Family Medicine 12/19/19 Embalmer Assistant Relationship Specialty Start Date End Date Tyson Tolliver MD PCP - General Family Medicine 11/11/15 Vivian Brady MD [address] [address] Gastroenterology 01/16/25 Embalmer Assistant Relationship Specialty Start Date End Date Cisco Bonilla DO [address], [facility] [place] [address] PCP - General Family Medicine 12/19/19 Embalmer Assistant Relationship Specialty Start Date End Date Tyson Tolliver MD PCP - General Family Medicine 11/11/15 Vivian Brady MD [address] [address] Gastroenterology 01/16/25 Team Status: Inactive Member Role Status Dates Cisco Bonilla DO Primary Care Provider Active Start: February 18, 2025 End: February 18, 2025 Ehsan Avina DO Attending Provider Active S tart: February 18, 2025 End: February 18, 2025 Embalmer Assistant Relationship Specialty Start Date End Date Tyson Tolliver MD PCP - General Family Medicine 11/11/15 Vivian Brady MD [address] [address] Gastroenterology 01/16/25 Embalmer Assistant Relationship Specialty Start Date End Date Tyson Tolliver MD PCP - General Family Medicine 11/11/15 Vivian Brady MD [address] [address] Gastroenterology 01/16/25 Embalmer Assistant Relationship Specialty Start Date End Date Tyson Tolliver MD PCP - General Family Medicine 11/11/15 Vivian Brady MD [address] [address] Gastroenterology 01/16/25 Embalmer Assistant Relationship Specialty Start Date End Date Tyson Tolliver MD PCP - General Family Medicine 11/11/15 Vivian Brady MD [address] [address] Gastroenterology 01/16/25 Team Status: Active Member Role [...] March 19, 2025 End: March 19, 2025 Embalmer Assistant Relationship Specialty Start Date End Date Cisco Bonilla Paddy [address] [facility] [place] [address] PCP - General Family Medicine 12/19/19 Embalmer Assistant Relationship Specialty Start Date End Date Tyson Tolliver MD PCP - General Family Medicine 11/11/15 Vivian Brady MD [address] [address] Gastroenterology 01/16/25 Embalmer Assistant Relationship Specialty Start Date End Date Tyson Tolliver MD PCP - General Family Medicine 11/11/15 Vivian Brady MD [address] [address] Gastroenterology 01/16/25 Embalmer Assistant Relationship Specialty Start Date End Date Tyson Tolliver MD PCP - General Family Medicine 11/11/15 Vivian Brady MD [address] [address] Gastroenterology 01/16/25 Team Status: Inactive Member Role Status Dates Cisco Bonilla DO Primary Care Provider Active Start: April 08, 2025 End: April 08, 2025 Ehsan Avina DO Attending Provider Active S tart: April 08, 2025 End: April 08, 2025 Embalmer Assistant Relationship Specialty Start Date End Date Cisco Bonilla DO [address] [facility] [place] [address] PCP - General Family Medicine 12/19/19 Goals [...] or prosecute any alcohol or drug abuse patient.[facility] Center[facility] the event this information is protected by the Federal Confidentiality of Alcohol and Drug Abuse Patient Records regulations: The Federal rules restrict any use of the information to criminally investigate or prosecute any alcohol or drug abuse patient.[facility] Center[facility] the event this information is protected by the Federal Confidentiality of Alcohol and Drug Abuse Patient Records regulations: The Federal rules restrict any use of the information to criminally investigate or prosecute any alcohol or drug abuse patient.[facility] Center[facility] the event this information is protected by the Federal Confidentiality of Alcohol and Drug Abuse Patient Records regulations: The Federal rules restrict any use of the information to criminally investigate or prosecute any alcohol or drug abuse patient.[facility] Center[facility] the event this information is protected by the Federal Confidentiality of Alcohol and Drug Abuse Patient Records regulations: The Federal rules restrict any use of the information to criminally investigate or prosecute any alcohol or drug abuse patient.[facility] Center[facility] the event this information is protected by the Federal Confidentiality of Alcohol and Drug Abuse Patient Records regulations: The Federal rules restrict any use of the information to criminally investigate or prosecute any alcohol or drug abuse patient.[facility] Center[facility] the event this information is protected by the Federal Confidentiality of Alcohol and Drug Abuse Patient Records regulations: The Federal rules restrict any use of the information to criminally investigate or prosecute any alcohol or drug abuse patient.[facility] Center[facility] the event this information is protected by the Federal Confidentiality of Alcohol and Drug Abuse Patient Records regulations: The Federal rules restrict any use of the information to criminally investigate or prosecute any alcohol or drug abuse patient.[facility] CenterIn the event this information is protected by the Federal Confidentiality of Alcohol and Drug Abuse Patient Records regulations: The Federal rules restrict any use of the information to criminally investigate or prosecute any alcohol or drug abuse patient.[facility] FOR RECORDS PERTAINING TO PATIENTS [...] BE BASED ON THE PRIMARY CLINICAL RECORDS. [facility] [employer] [facility]. provides no warranty or guarantee of the accuracy or completeness of information in this document.
[2025-05-14 10:47] VITALS: BP 125/70; PULSE 84; O2SAT 100
--- NOTE | 2025-05-14 10:57 | ED_ITS ---
HPI HPI - General Adult General Chief complaint: Recheck/Abnormal Lab/Rx Stated complaint: catheter issue Time Seen by Provider: 05/14/25 09:40 Source: patient Mode of arrival: walk-in History of Present Illness HPI narrative: The patient is a 54-year-old male who presents to the ER multiple days during this month including the 16,17 and 18 and 19 of the month and multiple time he had multiple presentation the same day as well, presenting to the ER with initially the main concern that his catheter need to be fixed more to his right leg and that he already had at the tape for his catheter back to the leg fixed The patient also mentioned that he have a history of diarrhea although right now he feels like his diarrhea is building up inside him, the patient seems anxious he does have a lot of symptoms that would not be related to his abdomen only he denies any abdominal pain he mentioned that he had cramping sometimes which is not present all the time but only when he feels that the pressure is in creasing inside his abdomen and his rectum and sometimes causes pressure in the head to increase, as per the patient words The patient requested to get Valium to control his symptoms Related Data Home Medications ?Medication ?Instructions ?Recorded ?Confirmed clonidine HCl 0.1 mg tablet mg 05/10/25 Previous Rx's ?Medication ?Instructions ?Recorded ondansetron 4 mg disintegrating 4 mg PO Q6H PRN nausea and 05/06/24 tablet vomiting #12 tabs ciprofloxacin HCl 500 mg tablet 500 mg PO Q12H #20 tab s 05/07/25 (Cipro) metronidazole 500 mg tablet 500 mg PO TID #30 tabs dicyclomine 10 mg capsule 10 mg PO TID PRN abdominal p ain #5 05/14/25 caps Allergies Allergy/AdvReac Type Severity Reaction Status Date / Time No Known Drug Allergies Allergy Verified 05/14/25 08:37 Opioid HPI Opioid Management Most Recent Opioid Data: Last Pain Scale 7 Today, 08:38 Last MAR Pain Assessment 05/08/25, 01:29 Ur Phencyclidine Scrn, (NEGATIVE) Negative , 15:20 Review of Systems ROS Status of ROS 10 or more systems reviewed and unremark able except as noted in history and below PFSH PFSH Social History Little interest or pleasure in doing things: not at all Feeling down, depressed, or hopeless: not at all Exam Narrative Exam Narrative: Nurses notes and vital signs reviewed and patient is not hypoxic. General: Well-appearing and in no apparent distress. Skin: Warm, dry, no pallor noted. No rash. Head: Normocephalic, atraumatic. Neck: Supple, non-tender. Eye: Pupils are equal, round and EOMI. No scleral icterus. Ears, Nose, Mouth, and Throat: TM are clear, no nasal mucosal hypertrophy. Oral mucosa is moist, no posterior oropharynx erythema, uvula is mid-line Cardiovascular: Regular Rate and Rhythm without murmur, gallop or rub. Respiratory: No accessory muscle use or respiratory distress. Lungs are clear to auscultation, no wheezing, rales or rhonchi Chest Wall: no tenderness Back: No midline thoracic or lumbar vertebral tenderness. No CVA tenderness Musculoskeletal: normal ROM, no calf or popliteal tenderness, no lower extremity edema/swelling GI: Abdomen is soft, non-distended. Normal bowel sounds. No masses appreciated. No tenderness to palpation. No rebound, guarding, or rigidity noted. Neurological: A&O x4. No cranial nerve dysfunction observed. Constitutional Vital Signs, click to edit/add: Last Vital Signs Temp 98.1 F 05/14/25 08:38 Pulse 84 05/14/25 10:47 Resp 18 05/14/25 10:47 BP 125/70 05/14/25 10:47 Pulse Ox 100 05/14/25 10:47 O2 Del Method Room Air 05/14/25 08:38 Course Vital Signs Vital signs: Vital Signs Temperature 98.1 F 05/14/25 08:38 Pulse Rate 116 H 05/14/25 08:38 Respiratory Rate 18 05/14/25 08:38 Blood Pressure 153/100 H 05/14/25 08:38 Pulse Oximetry 96 05/14/25 08:38 Oxygen Delivery Method Room Air 05/14/25 08:38 Temperature 98.1 F 05/14/25 08:38 Pulse Rate 84 05/14/25 10:47 Respiratory Rate 18 05/14/25 10:47 Blood Pressure 125/70 05/14/25 10:47 Pulse Oximetry 100 05/14/25 10:47 Oxygen Delivery Method Room Air 05/14/25 08:38 Medical Decision Making [facility] Narrative Medical decision making narrative: The patient really had the tape to his [place] catheter bag fixed as it was loose The patient also was noted that he had a history of cramping although is not having abdominal tenderness on examination at the moment he denies any abdominal pain at the moment but he mentioned that he have diarrhea sometimes although he mentioned when I offered him that if I can get a stool sample to rule out C. di fficile that will be needed because of the patient history of diverticulitis that he gave a few weeks ago The patient have no nausea no vomiting he is having, and his abdomen examination is benign right now we will just continue supportive care with Bentyl for few days The patient to come back to the ER in case of any worsening of the symptoms The patient is to follow up with primary care physician in next 2-3 days or to return to the emergency department should any of the signs or symptoms worsen or new symptoms develop. The patient agrees with the following Diagnosis and Treatment plan and the patient will be discharged home. Discharge Plan Discharge Chief Complaint: Recheck/Abnormal Lab/Rx Clinical Impression: Abdominal cramping Patient Disposition: Home, Self-Care Time of Disposition Decision: 10:40 Condition: Good Prescriptions / Home Meds: New dicyclomine 10 mg capsule 10 mg PO TID PRN (Reason: abdominal pain) Qty: 5 0RF No Action metronidazole 500 mg tablet 500 mg PO TID Qty: 30 0RF ciprofloxacin HCl [Cipro] 500 mg tablet 500 mg PO Q12H Qty: 20 0RF clonidine HCl 0.1 mg tablet ondansetron 4 mg tablet,disintegrating 4 mg PO Q6H PRN (Reason: nausea and vomiting) Qty: 12 0RF Print Language: Citizen [place] Instructions: Chronic Diarrhea (DC) Additional Instructions: a Referrals: MELY BONILLA [Primary Care Provider, Family Practice] - 1 week
[2025-05-14] MEDS: DICYCLOMINE HCL 20 MG/2 ML VIAL IM (11:04)
== END 2025-05-14 11:19 | disposition home or self-care (01) ==
PROVIDERS: Emergency Provider Emergency Medicine; PCP Family Medicine
DX: R10.9 Unspecified abdominal pain (principal)
CPT/HCPCS: 96372; 99284; J0500

== ENCOUNTER 2025-05-18 10:23 | Emergency (ER) | payer OTHER, SELFPAY ==
--- OUTSIDE RECORDS SUMMARY | 2025-05-16 10:42 | XMS_ITS ---
Author Name Auto Generated Organization [facility] Care Team Providers Care Bowling Alley Operator Name Role Phone FURLONG, CISCO G Attending Unavailable FURLONG, CISCO G Referring Unavailable FURLONG, CISCO G Primary Care Unavailable FURLONG, CISCO G Referring Unavailable FURLONG, CISCO G Primary Care Unavailable FURLONG, CISCO G Attending Unavailable FURLONG, CISCO G Referring Unavailable FURLONG, CISCO G Primary Care Unavailable FURLONG, CISCO G Referring Unavailable FURLONG, CISCO G Primary Care Unavailable Furlong, Cisco Primary Care Unavailable Kailyn Ehsan A Attending Unavailable Kailyn, Ehsan A Admitting Unavailable Furlong, Cisco Primary Care Unavailable Kailyn, Ehsan A Attending Unavailable Kailyn, Ehsan A Admitting Unavailable Kailyn, Ehsan A Admitting Unavailable Furlong, Cisco Primary Care Unavailable Kailyn, Ehsan A Attending Unavailable Vivian Brady Attending Unavailable Vivian Brady Attending Unavailable Vivian Brady Attending Unavailable Didi Allen Attending Unavailable Vivian Brady Attending Unavailable DILLAN GREGORIO Referring Unavailable MELQUIADES TOLLIVER Primary Care Unavailable DENITA LEBLANC Attending Unavailable DILLAN GREGORIO Referring Unavailable MELQUIADES TOLLIVER Primary Care Unavailable DENITA LEBLANC Attending Unavailable MELQUIADES TOLLIVER Primary Care Unavailable PROBLEMS DATE TYPE CONDITION / CODE ATTENDING STATUS [facility] 04/02/2025 Active Established Shruthi ent / UNK(Unknown) DENITA LEBLANC Active [facility] 03/18/2025 Unknown Encounter for preprocedural laboratory examination / Z01.812(ICD-10) Ehsan [facility] 03/13/2025 Unknown Displaced fractu re of fifth metatarsal bone, right foot, initial encounter for closed fracture / S92.351A(ICD-10) Ehsan [facility] 02/28/2025 Active Pelvic floor dysfunction / M62.89(ICD-10) NA Active [facility] 02/28/2025 Active Rectal spasm / K59.4(ICD-10) DENITA LEBLANC Active [facility] 02/28/2025 Active Constipation, unspecified constipation type / K59.00(ICD-10) DENITA LEBLANC Active [facility] 12/10/2024 Unknown Testicular hypofunction / E29.1(ICD-10) CISCO BLANC [facility] 12/10/2024 Unknown Overweight / E66.3(ICD-10) CISCO BLANC [facility] 12/10/2024 Unknown Encounter for ge neral adult medical examination without abnormal findings / Z00.00(ICD-10) CISCO BLANC [facility] 12/10/2024 Unknown 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(ICD-10) CISCO BLANC [facility] 12/10/2024 Unknown Personal history of nicotine dependence / Z87.891(ICD-10) CISCO BLANC [facility] 12/10/2024 Unknown Annual Exam / FREETEXT(AOF) CISCO BLANC [facility] 09/11/2024 Unknown Mixed irritable bowel syndrome / K58.2(ICD-10) CISCO BLANC [facility] 08/04/2022 Unknown Anxiety disorder , unspecified / F41.9(ICD-10) CISCO BLANC [facility] 03/09/2021 Unknown Essential (prima ry) hypertension / I10(ICD-10) CISCO BLANC [facility] 09/11/2024 Unknown Encounter for screening for malignant neoplasm of prostate / Z12.5(ICD-10) CISCO BLANC [facility] 09/11/2024 Unknown Abdominal Pain / FREETEXT(AOF) CISCO BLANC [facility] PROCEDURES No Procedure Records Found RESULTS PATIENT EDUCATION Observed: 05/16/2025 12:00 PM Status: C Source: [facility] Patient Education Urology Benign Prostatic Hyperplasia Benign prostatic hyperplasia (BPH) is an enlarged prostate gland that is caused by the normal aging process. The prostate may get bigger as a man gets older. The condition is not caused by cancer. The prostate is a walnut-sized gland that is involved in the production of semen. It is located in front of the rectum and below the bladder. The bladder stores urine. The urethra carries stored urine out of the body. An enlarged prostate can press on the urethra. This can make it harder to pass urine. The buildup of urine in the bladder can cause infection. Back pressure and infection may progress to bladder damage and kidney (renal) failure. What are the causes? This condition is part of the normal aging process. However, not all men develop problems from this condition. If the prostate enlarges away from the urethra, urine flow will not be blocked. If it enlarges toward the urethra and compresses it, there will be problems passing urine. What increases the risk? This condition is more likely to develop in men older than 50 years. What are the signs or symptoms? Symptoms of this condition include: ??? Getting up often during the night to urinate. ??? Needing to urinate frequently during the day. ??? Difficulty starting urine flow. ??? Decrease in size and strength of your urine stream. ??? Leaking (dribbling) after urinating. ??? Inability to pass urine. This needs immediate treatment. ??? Inability to completely empty your bladder. ??? Pain when you pass urine. This is more common if there is also an infection. ??? Urinary tract infection (UTI). How is this diagnosed? This condition is diagnosed based on your medical history, a physical exam, and your symptoms. Tests will also be done, such as: ??? A post-void bladder scan. This measures any amount of urine that may remain in your bladder after you finish urinating. ??? A digital rectal exam. In a rectal exam, your health care provider checks your prostate by putting a lubricated, gloved finger into your rectum to feel the back of your prostate gland. This exam detects the size of your gland and any abnormal lumps or growths. ??? An exam of your urine (urinalysis). ??? A prostate specific antigen (PSA) screening. This is a blood test used to screen for prostate cancer. ??? An ultrasound. This test uses sound waves to electronically produce a picture of your prostate gland. Your health care provider may refer you to a specialist in kidney and prostate diseases (urologist). How is this treated? Once symptoms begin, your health care provider will monitor your condition (active surveillance or watchful waiting). Treatment for this condition will depend on the severity of your condition. Treatment may include: ??? Observation and yearly exams. This may be the only treatment needed if your condition and symptoms are mild. ??? Medicines to relieve your symptoms, including: ? Medicines to shrink the prostate. ? Medicines to relax the muscle of the prostate. ??? Surgery in severe cases. Surgery may include: ? Prostatectomy. In this procedure, the prostate tissue is removed completely through an open incision or with a laparoscope or robotics. ? Transurethral resection of the prostate (TURP). In this procedure, a tool is inserted through the opening at the tip of the penis (urethra). It is used to cut away tissue of the inner core of the prostate. The pieces are removed through the same opening of the penis. This removes the blockage. ? Transurethral incision (TUIP). In this procedure, small cuts are made in the prostate. This lessens the prostate's pressure on the urethra. ? Transurethral microwave thermotherapy (TUMT). This procedure uses microwaves to create heat. The heat destroys and removes a small amount of prostate tissue. ? Transurethral needle ablation (TUNA). This procedure uses radio frequencies to destroy and remove a small amount of prostate tissue. ? Interstitial laser coagulation (ILC). This procedure uses a laser to destroy and remove a small amount of prostate tissue. ? Transurethral electrovaporization (TUVP). This procedure uses electrodes to destroy and remove a small amount of prostate tissue. ? Prostatic urethral lift. This procedure inserts an implant to push the lobes of the prostate away from the urethra. Follow these instructions at home: ??? Take emhe-hqa-kzmnclz and prescription medicines only as told by your health care provider. ??? Monitor your symptoms for any changes. Contact your health care provider with any changes. ??? Avoid drinking large amounts of liquid before going to bed or out in public. ??? Avoid or reduce how much caffeine or alcohol you drink. ??? Give yourself time when you urinate. ??? Keep all follow-up visits. This is important. Contact a health care provider if: ??? You have unexplained back pain. ??? Your symptoms do not get better with treatment. ??? You develop side effects from the medicine you are taking. ??? Your urine becomes very dark or has a bad smell. ??? Your lower abdomen becomes distended and you have trouble passing urine. Get help right away if: ??? You have a fever or chills. ??? You suddenly cannot urinate. ??? You feel light-headed or very dizzy, or you faint. ??? There are large amounts of blood or clots in your urine. ??? Your urinary problems become hard to manage. ??? You develop moderate to severe low back or flank pain. The flank is the side of your body between the ribs and the hip. These symptoms may be an emergency. Get help right away. Call 911. ??? Do not wait to see if the symptoms will go away. ??? Do not drive yourself to the hospital. Summary ??? Benign prostatic hyperplasia (BPH) is an enlarged prostate that is caused by the normal aging process. It is not caused by cancer. ??? An enlarged prostate can press on the urethra. This can make it hard to pass urine. ??? This condition is more likely to develop in men older than 50 years. ??? Get help right away if you suddenly cannot urinate. This information is not intended to replace advice given to you by your health care provider. Make sure you discuss any questions you have with your health care provider. Document Revised: 02/24/2022 Document Reviewed: 02/24/2022 [employer] Patient Education ? 2023 [employer].Acute Urinary Retention, Male Acute urinary retention is a condition in which a person is unable to pass urine or can only pass a little urine. This condition can happen suddenly and last for a short time. If left untreated, it can become long-term (chronic) and result in kidney damage or other serious complications. What are the causes? This condition may be caused by: ??? Obstruction or narrowing of the tube that drains the bladder (urethra). This may be caused by surgery, problems with nearby organs, or injury to the bladder or urethra. ??? Problems with the nerves in the bladder. ??? Tumors in the area of the pelvis, bladder, or urethra. ??? Certain medicines. ??? Bladder or urinary tract infection. ??? Constipation. What increases the risk? This condition is more likely to develop in older men. As men age, their prostate may become larger and may start to press or squeeze on the bladder or the urethra. Other chronic health conditions can increase the risk of acute urinary retention. These include: ??? Diseases such as multiple sclerosis. ??? Spinal cord injuries. ??? Diabetes. ??? Degenerative cognitive conditions, such as delirium or dementia. ??? Psychological conditions. A man may hold his urine due to trauma or because he does not want to use the bathroom. What are the signs or symptoms? Symptoms of this condition include: ??? Trouble urinating. ??? Pain in the lower abdomen. How is this diagnosed? This condition is diagnosed based on a physical exam and your medical history. You may also have other tests, including: ??? An ultrasound of the bladder or kidneys or both. ??? Blood tests. ??? A urine analysis. ??? Additional tests may be needed, such as a CT scan, MRI, and kidney or bladder function tests. How is this treated? Treatment for this condition may include: ??? Medicines. ??? Placing a thin, sterile tube (catheter) into the bladder to drain urine out of the body. This is called an indwelling urinary catheter. After it is inserted, the catheter is held in place with a small balloon that is filled with sterile water. Urine drains from the catheter into a collection bag outside of the body. ??? Behavioral therapy. ??? Treatment for other conditions. If needed, you may be treated in the hospital for kidney function problems or to manage other complications. Follow these instructions at home: Medicines ??? Take wqvr-cki-esshrsy and prescription medicines only as told by your health care provider. Avoid certain medicines, such as decongestants, antihistamines, and some prescription medicines. Do not take any medicine unless your health care provider approves. ??? If you were prescribed an antibiotic medicine, take it as told by your health care provider. Do not stop using the antibiotic even if you start to feel better. General instructions ??? Do not use any products that contain nicotine or tobacco. These products include cigarettes, chewing tobacco, and vaping devices, such as e-cigarettes. If you need help quitting, ask your health care provider. ??? Drink enough fluid to keep your urine pale yellow. ??? If you have an indwelling urinary catheter, follow the instructions from your health care provider. ??? Monitor any changes in your symptoms. Tell your health care provider about any changes. ??? If instructed, monitor your blood pressure at home. Report changes as told by your health care provider. ??? Keep all follow-up visits. This is important. Contact a health care provider if: ??? You have uncomfortable bladder contractions that you cannot control (spasms). ??? You leak urine with the spasms. Get help right away if: ??? You have chills or a fever. ??? You have blood in your urine. ??? You have a catheter and the following happens: ? Your catheter stops draining urine. ? Your catheter falls out. Summary ??? Acute urinary retention is a condition in which a person is unable to pass urine or can only pass a little urine. If left untreated, this condition can result in kidney damage or other serious complications. ??? An enlarged prostate may cause this condition. As men age, their prostate gland may become larger and may press or squeeze on the bladder or the urethra. ??? Treatment for this condition may include medicines and placement of an indwelling urinary catheter. ??? Monitor any changes in your symptoms. Tell your health care provider about any changes. This information is not intended to replace advice given to you by your health care provider. Make sure you discuss any questions you have with your health care provider. Document Revised: 04/29/2021 Document Reviewed: 04/29/2021 [employer] Patient Education ? 2023 [employer]. UROLOGY OFFICE/CLINIC NOTE Observed: 10:42 AM Status: F Source: [facility] Urology Office/Clinic Note HPI Staff 54 yr old male here for H f/u due to Rectal pain, dizziness and urinary retention. Pt has cath Previous dx: Urinary retention, BPH, Frequent bowel movements *Tamsulosin 0.4mg qd ? PVR 02/06/25 - 108 ml Pt was seen @ [facility] back on 02/01/25 for same CC Pt has been seen 6 X over the past week Pt reports that he was told at [facility] gastro that his rectal sphincter no longer works and he was to have pelvic floor therapy but could not go to [place] for therapy Pt reports that he has high anxiety and PCP will no longer give him antianxiety due to broken contract Pt reports that he is now clean and sober Pt complains of incomplete bladder emptying, frequency, intermittent stream, straining to urinate, and nocturia and sever constipation Pt is on ABX for diverticulitis IPSS: 33 SHIMS: 1 Pt is unsure of current medication History of Present Illness I have reviewed and verified the staff HPI to be accurate for this encounter. Portions of this record may have been created with voice recognition artificial intelligence software, specifically [employer], [employer] and or [employer]. Substitutions may have occurred due to the inherent limitations of voice recognition and artificial intelligence software. Review of Systems PHQ Score Initial Depression Screen Score: 0 SCORE Physical Exam Vitals & Measurements T: 36.9 ???C(Tympanic) HR: 70(Peripheral) RR: 16 BP: 138/80 HT: 173 cm HT: 68 in WT: 171.96 lb WT: 78 kg BMI: 26.06 General: Well developed, well nourished, in no acute distress. Assessment/Plan 1. 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 CT neg. Starr placed w/ 900 cc output. Refused to be discharged w/ cath in place. PVR 02/07/24 - 108 ml [facility] ER 05/07/25 - UR. Straight cathed w/ relief and given flomax and discharged. Returned later in the day w/ continued UR, PVR 400 ml and starr placed. Discussed possible factors contributing to UR including constipation and prostate obstruction. Advised on risk of recurrence of retention, but pt adamant about having cath removed today as it makes him extremely anxious. Starr removed IO. rec cysto to eval PARADA The risks and benefits for cystoscopy have been discussed. The risks include bleeding, infection, and irritation of the bladder and urinary channel, among others. The patient, after being informed of procedural details and after questions have been answered, wishes to proceed. Full informed consent has been obtained. Will order Local anesthesia. Increase fluid intake, avoid bladder irritants ER for fever, NV, severe flank pain, inability to urinate -cont tamsulosin -schedule cysto -f/u 1 wk w/ PVR Ordered: Body Mass Index (BMI) documented 3008F Current tobacco non-user 1036F Depression Screening Negative 3352F Influenza immunization status assessed 1030F Medication list documented in medical record 1159F Most recent diastolic blood pressure 80-89 mm Hg 3079F Review of all meds by a prescribing practitioner or clinical pharmacist documented in EHR 1160F Systolic BP 130-139 mm Hg (Most Recent) 3075F 2. BPH (benign prostatic hyperplasia) (N40.0: Benign prostatic hyperplasia without lower urinary tract symptoms) IPSS (10) was started on tamsulosin after prior episode of retention, pt stopped at some point, never followed up We discussed male urologic anatomy including the [...] health, discussed further evaluation with cystoscopy. Pt was given tamsulosin in ER, still taking it w/o SEs at this time. Instructed on importance of continuing med fci at this point. -cont tamsulosin, rx sent -schedule cysto Ordered: Body Mass Index (BMI) documented 3008F Current tobacco non-user 1036F Depression Screening Negative 3352F Influenza immunization status assessed 1030F Medication list documented in medical record 1159F Most recent diastolic blood pressure 80-89 mm Hg 3079F Review of all meds by a prescribing practitioner or clinical pharmacist documented in EHR 1160F Systolic BP 130-139 mm Hg (Most Recent) 3075F 3. Prostate cancer screening (Z12.5: Encounter for screening for malignant neoplasm of prostate) no PSA on [facility] Ordered: Body Mass Index (BMI) documented 3008F Current tobacco non-user 1036F Depression Screening Negative 3352F Influenza immunization status assessed 1030F Medication list documented in medical record 1159F Most recent diastolic blood pressure 80-89 mm Hg 3079F Review of all meds by a prescribing practitioner or clinical pharmacist documented in EHR 1160F Systolic BP 130-139 mm Hg (Most Recent) 3075F 4. Frequent bowel movements (R19.4: Change in bowel habit) may be a contributing factor to urinary sxs has seen GI - referred to [facility] psychology -bowel regimen Ordered: Body Mass Index (BMI) documented 3008F Current tobacco non-user 1036F Depression Screening Negative 3352F Influenza immunization status assessed 1030F Medication list documented in medical record 1159F Most recent diastolic blood pressure 80-89 mm Hg 3079F Review of all meds by a prescribing practitioner or clinical pharmacist documented in EHR 1160F Systolic BP 130-139 mm Hg (Most Recent) 3075F 5. Pelvic floor dysfunction (M62.89: Other specified disorders of muscle) previously referred to PFPT d/t bowel issues, but unable to make it to [facility] for this would likely improve urination as well -refer to PFPT at [facility] Orders: tamsulosin, 0.4 mg = 1 cap(s), Oral, Bedtime, # 30 cap(s), Refills(s) 11, Pharmacy: [id number], 173, cm, 05/16/25 10:50:00 EDT, Height/Length Dosing, 78, kg, 05/16/25 10:50:00 EDT, Weight Dosing Follow-up With When Contact Information CLINT CHAVIS, Ethan Phillips, URL [facility] [place] [address]- Additional Instructions: cysto Patient Education Benign Prostatic Hyperplasia Acute Urinary Retention, Male Problem List/Past Medical History Ongoing Bloating BPH (benign prostatic hyperplasia) Constipation Constipation by outlet dysfunction Drug dependence Frequent bowel movements Head injury High cholesterol HTN (hypertension) Pelvic floor dysfunction Prostate cancer screening Stress-related physiological response affecting medical condition Urinary retention Historical No qualifying data Procedure/Surgical History Appendectomy, Colonoscopy. Medications baclofen compounding powder cloNIDine 0.1 mg tab dicyclomine 10 mg Cap, 20 mg= 2 cap(s) Dulcolax 10 mg Supp, 10 mg= 1 supp, Rectal, Daily, PRN MetroNIDAZOLE 500 mg Tab, 500 mg= 1 tab(s) nitrofurantoin macrocrystals-monohydrate 100 mg Cap ondansetron 4 mg Dis Tab, 4 mg= 1 tab(s) tamsulosin 0.4 mg Cap, 0.4 mg= 1 cap(s), Oral, Bedtime, 11 refills Allergies No Known Medication Allergies Social History Alcohol Past. Beer. 1-2 times per month., 01/04/2025 Substance Abuse Past. Amphetamines, Cocaine, Ecstasy, Hallucinogens/LSD, Heroin, Marijuana, Methamphetamines. 1-2 times per month. Previous treatment: Treatment center, Inpatient, Outpatient., 01/23/2025 Tobacco Former smoker, quit more than 30 days ago Tobacco Use:. Never Smokeless Tobacco Use:. Cigarettes, 05/16/2025 Family History Drug dependence: Mother and Father. Hypertension: Mother. Immunizations Vaccine Date Status influenza virus vaccine, inactivated 06/20/2021 Recorded SARS-CoV-2 (COVID-19) mRNA BNT-162b2 vax 06/20/2021 Recorded SARS-CoV-2 (COVID-19) mRNA BNT-162b2 vax 12/08/2020 Recorded SARS-CoV-2 (COVID-19) mRNA BNT-162b2 vax 11/18/2020 Recorded influenza virus vaccine, inactivated 04/06/2020 Recorded influenza virus vaccine, inactivated 06/07/2019 Recorded diphtheria/pertussis, acel/tetanus adult 10/27/2013 Recorded Result Comment: Electronical ly Signed By: JOSEPH Allen APRN, [facility]\.br\Date and Time Signed: 05/16/25 12:01 EDT AMBULATORY VISIT SUMMARY Observed: 05/16 10:42 AM Status: F Source: [facility] Ambulatory Visit Summary HARLAN RUSSELL :1970 Visit Date:05/16/2025 Ambulatory Visit Instructions Your Diagnosis Urinary retention BPH (benign prostatic hyperplasia) Prostate cancer screening Frequent bowel movements Pelvic floor dysfunction Your Care Team Attending Physician - JOSEPH Allen APRN, [facility] Primary Care Physician - CISCO BLANC DO This Is Your Medications List tamsulosin (tamsulosin 0.4 mg Cap) Contact prescribing physician if questions or concerns baclofen (baclofen compounding powder) bisacodyl (Dulcolax 10 mg Supp) clonidine (cloNIDine 0.1 mg tab) dicyclomine (dicyclomine 10 mg Cap) metronidazole (MetroNIDAZOLE 500 mg Tab) nitrofurantoin (nitrofurantoin macrocrystals-monohydrate 100 mg Cap) ondansetron (ondansetron 4 mg Dis Tab) Procedures Performed Appendectomy, Colonoscopy. Discharge Vitals Temperature (Tympanic) 36.9 ???C Heart Rate (Peripheral) 70 Respiratory Rate 16 Blood Pressure 138/80 Height 173 cm Height 68 in Weight 78 kg Weight 171.96 lb BMI 26.06 What to do next Scheduled Follow-Up Appointments 2024 1:30 PM EDT With: Where: [facility] [address] [address]- Tuesday 2:00 PM EDT With: Ethan JARAMILLO MD Where: [facility] [address] [address]- You Need to Schedule the Following Appointments Follow Up with Ethan JARAMILLO MD, URL When: Comments: cysto Where: 70 [place] [id number]- Medications What How Much When Instructions Changed tamsulosin (tamsulosin 0.4 mg Cap) 1 Capsules By Mouth At bedtime Pickup at [facility] Unchanged baclofen (baclofen compounding powder) Contact prescribing physician if questions or concerns Unchanged bisacodyl (Dulcolax 10 mg Supp) 1 Suppositories By rectum Every day as needed for for constipation Contact prescribing physician if questions or concerns Unchanged clonidine (cloNIDine 0.1 mg tab) Contact prescribing physician if questions or concerns Unchanged dicyclomine (dicyclomine 10 mg Cap) 2 Capsules Contact prescribing physician if questions or concerns Unchanged metronidazole (MetroNIDAZOLE 500 mg Tab) 1 Tablets Contact prescribing physician if questions or concerns Unchanged nitrofurantoin (nitrofurantoin macrocrystals-monohydrate 100 mg Cap) Contact prescribing physician if questions or concerns Unchanged ondansetron (ondansetron 4 mg Dis Tab) 1 Tablets Contact prescribing physician if questions or concerns Pharmacy Information [facility]: [address] [place], [place] [phone] Allergies No Known Medication Allergies Problems Ongoing [...] you for choosing us for your care. Education Materials Benign Prostatic Hyperplasia Benign prostatic hyperplasia (BPH) is an enlarged prostate gland that is caused by the normal aging process. The prostate may get bigger as a man gets older. The condition is not caused by cancer. The prostate is a walnut-sized gland that is involved in the production of semen. It is located in front of the rectum and below the bladder. The bladder stores urine. The urethra carries stored urine out of the body. An enlarged prostate can press on the urethra. This can make it harder to pass urine. The buildup of urine in the bladder can cause infection. Back pressure and infection may progress to bladder damage and kidney (renal) failure. What are the causes? This condition is part of the normal aging process. However, not all men develop problems from this condition. If the prostate enlarges away from the urethra, urine flow will not be blocked. If it enlarges toward the urethra and compresses it, there will be problems passing urine. What increases the risk? This condition is more likely to develop in men older than 50 years. What are the signs or symptoms? Symptoms of this condition include: ??? Getting up often during the night to urinate. ??? Needing to urinate frequently during the day. ??? Difficulty starting urine flow. ??? Decrease in size and strength of your urine stream. ??? Leaking (dribbling) after urinating. ??? Inability to pass urine. This needs immediate treatment. ??? Inability to completely empty your bladder. ??? Pain when you pass urine. This is more common if there is also an infection. ??? Urinary tract infection (UTI). How is this diagnosed? This condition is diagnosed based on your medical history, a physical exam, and your symptoms. Tests will also be done, such as: ??? A post-void bladder scan. This measures any amount of urine that may remain in your bladder after you finish urinating. ??? A digital rectal exam. In a rectal exam, your health care provider checks your prostate by putting a lubricated, gloved finger into your rectum to feel the back of your prostate gland. This exam detects the size of your gland and any abnormal lumps or growths. ??? An exam of your urine (urinalysis). ??? A prostate specific antigen (PSA) screening. This is a blood test used to screen for prostate cancer. ??? An ultrasound. This test uses sound waves to electronically produce a picture of your prostate gland. Your health care provider may refer you to a specialist in kidney and prostate diseases (urologist). How is this treated? Once symptoms begin, your health care provider will monitor your condition (active surveillance or watchful waiting). Treatment for this condition will depend on the severity of your condition. Treatment may include: ??? Observation and yearly exams. This may be the only treatment needed if your condition and symptoms are mild. ??? Medicines to relieve your symptoms, including: ? Medicines to shrink the prostate. ? Medicines to relax the muscle of the prostate. ??? Surgery in severe cases. Surgery may include: ? Prostatectomy. In this procedure, the prostate tissue is removed completely through an open incision or with a laparoscope or robotics. ? Transurethral resection of the prostate (TURP). In this procedure, a tool is inserted through the opening at the tip of the penis (urethra). It is used to cut away tissue of the inner core of the prostate. The pieces are removed through the same opening of the penis. This removes the blockage. ? Transurethral incision (TUIP). In this procedure, small cuts are made in the prostate. This lessens the prostate's pressure on the urethra. ? Transurethral microwave thermotherapy (TUMT). This procedure uses microwaves to create heat. The heat destroys and removes a small amount of prostate tissue. ? Transurethral needle ablation (TUNA). This procedure uses radio frequencies to destroy and remove a small amount of prostate tissue. ? Interstitial laser coagulation (ILC). This procedure uses a laser to destroy and remove a small amount of prostate tissue. ? Transurethral electrovaporization (TUVP). This procedure uses electrodes to destroy and remove a small amount of prostate tissue. ? Prostatic urethral lift. This procedure inserts an implant to push the lobes of the prostate away from the urethra. Follow these instructions at home: ??? Take ljth-nnm-hvhhfsw and prescription medicines only as told by your health care provider. ??? Monitor your symptoms for any changes. Contact your health care provider with any changes. ??? Avoid drinking large amounts of liquid before going to bed or out in public. ??? Avoid or reduce how much caffeine or alcohol you drink. ??? Give yourself time when you urinate. ??? Keep all follow-up visits. This is important. Contact a health care provider if: ??? You have unexplained back pain. ??? Your symptoms do not get better with treatment. ??? You develop side effects from the medicine you are taking. ??? Your urine becomes very dark or has a bad smell. ??? Your lower abdomen becomes distended and you have trouble passing urine. Get help right away if: ??? You have a fever or chills. ??? You suddenly cannot urinate. ??? You feel light-headed or very dizzy, or you faint. ??? There are large amounts of blood or clots in your urine. ??? Your urinary problems become hard to manage. ??? You develop moderate to severe low back or flank pain. The flank is the side of your body between the ribs and the hip. These symptoms may be an emergency. Get help right away. Call 911. ??? Do not wait to see if the symptoms will go away. ??? Do not drive yourself to the hospital. Summary ??? Benign prostatic hyperplasia (BPH) is an enlarged prostate that is caused by the normal aging process. It is not caused by cancer. ??? An enlarged prostate can press on the urethra. This can make it hard to pass urine. ??? This condition is more likely to develop in men older than 50 years. ??? Get help right away if you suddenly cannot urinate. This information is not intended to replace advice given to you by your health care provider. Make sure you discuss any questions you have with your health care provider. Document Revised: 02/24/2022 Document Reviewed: 02/24/2022 [employer] Patient Education ??? 2023 [employer]. Acute Urinary Retention, Male Acute urinary retention is a condition in which a person is unable to pass urine or can only pass a little urine. This condition can happen suddenly and last for a short time. If left untreated, it can become long-term (chronic) and result in kidney damage or other serious complications. What are the causes? This condition may be caused by: ??? Obstruction or narrowing of the tube that drains the bladder (urethra). This may be caused by surgery, problems with nearby organs, or injury to the bladder or urethra. ??? Problems with the nerves in the bladder. ??? Tumors in the area of the pelvis, bladder, or urethra. ??? Certain medicines. ??? Bladder or urinary tract infection. ??? Constipation. What increases the risk? This condition is more likely to develop in older men. As men age, their prostate may become larger and may start to press or squeeze on the bladder or the urethra. Other chronic health conditions can increase the risk of acute urinary retention. These include: ??? Diseases such as multiple sclerosis. ??? Spinal cord injuries. ??? Diabetes. ??? Degenerative cognitive conditions, such as delirium or dementia. ??? Psychological conditions. A man may hold his urine due to trauma or because he does not want to use the bathroom. What are the signs or symptoms? Symptoms of this condition include: ??? Trouble urinating. ??? Pain in the lower abdomen. How is this diagnosed? This condition is diagnosed based on a physical exam and your medical history. You may also have other tests, including: ??? An ultrasound of the bladder or kidneys or both. ??? Blood tests. ??? A urine analysis. ??? Additional tests may be needed, such as a CT scan, MRI, and kidney or bladder function tests. How is this treated? Treatment for this condition may include: ??? Medicines. ??? Placing a thin, sterile tube (catheter) into the bladder to drain urine out of the body. This is called an indwelling urinary catheter. After it is inserted, the catheter is held in place with a small balloon that is filled with sterile water. Urine drains from the catheter into a collection bag outside of the body. ??? Behavioral therapy. ??? Treatment for other conditions. If needed, you may be treated in the hospital for kidney function problems or to manage other complications. Follow these instructions at home: Medicines ??? Take mkhc-wyt-wubjpum and prescription medicines only as told by your health care provider. Avoid certain medicines, such as decongestants, antihistamines, and some prescription medicines. Do not take any medicine unless your health care provider approves. ??? If you were prescribed an antibiotic medicine, take it as told by your health care provider. Do not stop using the antibiotic even if you start to feel better. General instructions ??? Do not use any products that contain nicotine or tobacco. These products include cigarettes, chewing tobacco, and vaping devices, such as e-cigarettes. If you need help quitting, ask your health care provider. ??? Drink enough fluid to keep your urine pale yellow. ??? If you have an indwelling urinary catheter, follow the instructions from your health care provider. ??? Monitor any changes in your symptoms. Tell your health care provider about any changes. ??? If instructed, monitor your blood pressure at home. Report changes as told by your health care provider. ??? Keep all follow-up visits. This is important. Contact a health care provider if: ??? You have uncomfortable bladder contractions that you cannot control (spasms). ??? You leak urine with the spasms. Get help right away if: ??? You have chills or a fever. ??? You have blood in your urine. ??? You have a catheter and the following happens: ? Your catheter stops draining urine. ? Your catheter falls out. Summary ??? Acute urinary retention is a condition in which a person is unable to pass urine or can only pass a little urine. If left untreated, this condition can result in kidney damage or other serious complications. ??? An enlarged prostate may cause this condition. As men age, their prostate gland may become larger and may press or squeeze on the bladder or the urethra. ??? Treatment for this condition may include medicines and placement of an indwelling urinary catheter. ??? Monitor any changes in your symptoms. Tell your health care provider about any changes. This information is not intended to replace advice given to you by your health care provider. Make sure you discuss any questions you have with your health care provider. Document Revised: 04/29/2021 Document Reviewed: 04/29/2021 [employer] Patient Education ??? 2023 [employer] Patient Portal You may access all of your results and other medical record information on our secure patient portal. If you are not signed up for this yet, please contact [employer] at [phone] to get signed up today. Language Information Language assistance services are available as needed. PROGRESS Observed: 04/03/2025 8:29 AM Status: COMPLETED Source: [facility] ID: [id number] Author: DENITA LEBLANC PA-C Service: ? Author Type: Physician Boomswing Operator Type: Progress Notes Filed: 04/03/2025 08:41 Note Text: Pelvic Floor Multidisciplinary Conference Presentation Date of conference: April 03, 2025. Presenter/specialty: SHERRI Leblanc PA-C History of present illness: Harlan Russell is a 54 year old male [...] PCP for dizziness/blurriness Anticipated surgical procedure: none Denita Leblanc PA-C PROGRESS Observed: 04/02/2025 11:30 AM Status: COMPLETED Source: [facility] ID: [id number] Author: DENITA LEBLANC PA-C Service: ? Author Type: Physician Boomswing Operator Type: Progress Notes Filed: 04/02/2025 12:17 Note Text: COLORECTAL SURGERY VIRTUAL VISIT FOLLOW UP 04/02/2025 I have communicated my name and active licensure. The patient's identity and physical location were verified at the time of this visit. Either the patient or their legal manufacturer representative has been informed of the risks and benefits of -- and alternatives to -- treatment through a remote evaluation and consents to proceed with the evaluation remotely. I had a virtual visit with Mr. Russell today for follow up of Constipation, unspecified constipation type (primary encounter diagnosis) Rectal spasm Pelvic floor dysfunction Anxiety Distressed about housing issues Orthostatic dizziness. UPDATED HISTORY: Harlan Russell is a 54 year old male [...] Not Performed Medical Decision Making: Assessment Assessment: Harlan Russell is a 54 year old male who I originally saw on February 28, 2025. He was referred to [facility] for anorectal manometry by Dr. [...] laxatives and stool softeners; consider referral to [facility] if unable to see local [...] evaluate and manage orthostatic symptoms. Recording using [employer] software for draft documentation of the visit was discussed with the patient/authorized manufacturer representative; all questions welcomed and answered. Patient/authorized manufacturer representative agreed to proceed JAME Segundo I spent a total of 33 minutes on the date of the service which included preparing to see the patient, [id number]-[id number] patient care, completing clinical documentation, obtaining and/or reviewing separately obtained history, performing a medically appropriate examination, counseling and educating the patient/family/caregiver, communicating with other HCPs (not separately reported), and care coordination (not separately reported). XR FOOT RT 2V Observed: 03/20/2025 8:49 AM Status: COMPLETED Source: [facility] Main [place] [id number] XRay Report Signed Patient: Harlan Russell MR#: [id number] 2 : 1970 Acct:[id number] Age/Sex: 54 / M ADM Date: 03/19/25 Loc: [place] Room: Type: [facility] Attending Dr: Ehsan Avina DO Copies [...] Lisa M.D. 03/20/2025 8:49 AM Dictation Location: [place] [address] Transcribed By: [facility] 03/20/25 0849 Dictated By: Dante Lisa II, MD 03/20/25 0849 Signed By: <Electronically signed by Dante Lisa II, MD in OV> 03/20/25 0849 DRUG SCREEN,URINE Collected: 03/19/2025 11:15 AM Sta tus: F Source: [facility] TYPE CODE TESTS RESULT OUT OF RANGE REFERENCE UNITS LAB URAMPS Amphetamine Screen,Urine Negative Negative LAB URBARBS Barbiturate Screen,Urine Negative Negative LAB URBENZS Benzodiazepines Screen,Urine Positive Negative LAB URCOCS Cocaine Screen,Urine Negative Negative LAB UROPIS Opiate Screen,Urine Positive Negative LAB URPCPS Phencyclidine Screen,Urine Negative Negative LAB URTHCS Cannabinoid Screen,Urine Negative Negative Result Comment: These are un confirmed results and should not be used for legal purposes. Drug Cut-Off Concentration: AMPH 1000 ng/mL MAXIMILIAN 200 ng/mL NORA 200 ng/mL COCM 300 ng/mL OP 300 ng/mL PCP 25 ng/mL THC 20 ng/mL PERFORMED BY: [place] [address] PATHOLOGIST BROOCH MAKER NOVELTY BROWN OLIVIER M.D. Performed By: #### URDS #### [address] COMPLETE BLOOD COUNT AUTO DIFF Collected: 03/18/2025 11:48 AM Status: F Source: [facility] TYPE CODE TESTS RESULT OUT OF RANGE REFERENCE UNITS LAB WBC White Blood Count 6.4 Normal 4.1-10.5 [CFU]/mL LAB UNWBC Uncorrected WBC 6.4 Normal 4.1-10.5 10*3/uL LAB RBC Red Blood Count 4.85 Normal 3.90-5.60 10*6/u L LAB HGB Hemoglobin 16.0 Normal 13.0-17.0 g/dL LAB HCT Hematocrit 46.4 Normal 38.8-50.0 % LAB MCV Mean Corpuscular Volume 95.7 Normal 83.5-101 fL LAB MCH Mean Corpuscular Hemoglobin 32.9 Normal 27.5-35.2 pg LAB MCHC Mean Corpuscular HGB Conc 34.4 Normal 32.5-35.6 g/dL LAB RDW Red Cell Distribution Width 12.9 Normal 12.0-14.8 % LAB PLT Platelet Count 213 Normal 150-450 10*3/uL LAB MPV Mean Platelet Volume 8.1 Normal 6.6-10.1 fL LAB NE% Neutrophils % (Auto) 56.1 . % LAB LY% Lymphocytes % (Auto) 18.9 . % LAB MO% Monocytes % (Auto) 9.7 . % LAB EO% Eosinophils % (Auto) 14.4 . % LAB BA% Basophils % (Auto) 0.9 . % LAB NRBC% NRBC% 0.1 Normal 0-0.5 /100{WBC} LAB NE# Neutrophils # (Auto) 3.6 Normal 1.8-7.7 10*3/uL LAB LY# Lymphocytes # (Auto) 1.2 Normal 1.00-4.8 10*3/uL LAB MO# Monocytes # (Auto) 0.6 Normal 0.0-0.8 10*3/uL LAB EO# Eosinophils # (Auto) 0.9 High 0.0-0.45 10*3/uL LAB BA# Basophils # (Auto) 0.1 Normal 0.0-0.2 10*3/uL Result Comment: PERFORMED BY : [facility] [address] [address] PATHOLOGIST BROOCH MAKER NOVELTY BROWN OLIVIER M.D. Performed By: #### CMP wRFX A1C, CBC #### [facility] [address] [place] [id number] [facility] CMP WITH REFLEX TO A1C Collected: 03/18/2025 11:48 AM Status: F Source: [facility] TYPE CODE TESTS RESULT OUT OF RANGE REFERENCE UNITS LAB EBS GLUCOSE Glucose, Employe e SCR 88 Normal 70-100 mg/dL LAB BUN Blood Urea Nitrogen 9 Normal 7-25 mg/d L LAB CREATT Creatinine 1.03 Normal 0.70-1.30 mg/dL LAB GFReNR Estimated GFR >60.0 LAB NA Sodium 137 Normal 136-145 mmol/L LAB K Potassium 4.1 Normal 3.5-5.1 mmol/L LAB CL Chloride 102 Normal 98-107 mmol/L LAB CO2 Carbon Dioxide 29.7 Normal 21.0-31.0 mmol/L LAB GAP Anion Gap 9.4 Normal 6.0-15.0 LAB CA Calcium 9.2 Normal 8.6-10.3 mg/dL LAB TP Total Protein 6.9 Normal 6.4-8.9 g/dL LAB ALB Albumin Level 4.2 Normal 3.5-5.7 g/dL LAB GLOB Globulin 2.7 g/dL LAB AGRATIO Albumin/Globulin Ratio 1.6 LAB BILIT Bilirubin,Total 1.0 Normal 0.3-1.0 mg/dL LAB AST Aspartate Amino Transferase 20 Normal 13-39 U/L LAB ALT Alanine Aminotransferase 15 Normal 7-52 U/L LAB ALP Alkaline Phosphatase 116 High 34-104 U/L Result Comment: PERFORMED BY : [place] [address] PATHOLOGIST BROOCH MAKER NOVELTY BROWN OLIVIER M.D. Performed By: #### CMP wRFX A1C, CBC #### [facility] [address] [place] [id number] [facility] ECG 12 LEAD ECG Observed: 03/18/2025 11:38 AM Status: COMPLETED Source: [facility] [place] [address] Electrocardiograph Report Signed Patient: Harlan Russell MR#: [id number] 2 : 1970 Acct:[id number] Age/Sex: 54 / M ADM Date: 03/18/25 Loc: [place] Room: Type: REG CLI Attending Dr: Ehsan Avina DO Ordering Provider: [...] previous ECGs available Confirmed by Eduardo Torrez ([id number]) on 03/18/2025 1:40:16 PM Referred By: Electronically Signed By: Eduardo Torrez Transcribed By: MUS Signed By Eduardo Torrez MD 03/18/25 1340 XR FOOT RT MIN 3V* Observed: 03/13/2025 10:21 PM Status: COMPLETED Source: [facility] [address] [place] [address] XRay Report Signed Patient: Harlan Russell MR#: [id number] 2 : 1970 Acct:[id number] Age/Sex: 54 / M ADM Date: 03/13/25 Loc: [facility] Room: Type: REG CLI Attending Dr: Ehsan Avina DO Copies to: Ehsan Avina DO Ordering Provider: Ehsan Avina DO Date of Service: 03/13/25 XR/XR foot RT min 3V*: S92.351A - Displaced fracture of fifth metatarsal bone, r... 3 views right foot plain film COMPARISON:02/14/2025 HISTORY: Status post right fifth metatarsal fracture ACUTE FINDINGS: Stable alignment DEGENERATIVE CHANGE: Unremarkable SOFT TISSUE FINDINGS: Unremarkable JOINT EFFUSION: None POSTOP CHANGES: None BONE MINERALIZATION: Adequate XR/XR foot RT min 3V* IMPRESSION: Stable findings Impression dictated by: Garrett Dawson M.D. 03/13/2025 10:25 PM Dictation Location: [facility] Transcribed By: [facility] 03/13/252224 Dictated By: Garrett Dawson DO 03/13/252220 Signed By: <Electronically signed by Garrett Dawson DO in OV> 03/13/252224 CNPN Observed: 03/07/2025 12:00 AM Status: COMPLETED Source: [facility] Telephone (KELLIEMary) HARLAN RUSSELL ([id number]) 1970 M Date Time Provider Department 03/07/25 DENITA LEBLANC During your visit today, we recorded the following information about you: Sterling Curran 03/07/2025 1:33 PM Signed Harlan Russell - [phone] Patient contacted the office regarding the baclofen that was prescribed to him. He reported that his back is feeling tighter than before and believes that a taking all these different medications may be causing this side effect. Unsure on what he should do. Denita Leblanc PA-C 03/07/2025 1:58 PM Addendum Called patient [...] the same time. ED with worsening sx. Denita Leblanc PA-C Allergies As of Date: 03/07/2025 (No [...] tablet Take 0.1 mg by mouth. - HYDROcodone-acetaminophen (NORCO) 5-325 mg per tablet TAKE 1 TABLET BY MOUTH TWICE DAILY FOR PAIN FOR 15 DAYS - Pramoxine-Hydrocortisone (ANALPRAM-HC) 1-1 % rectal cream 1 application [...] Date: 03/07/2025 (None) Encounter Status:Closed by STERLING CURRAN on 03/07/25 CNJELENA Observed: 02/28/2025 1:00 PM Status: COMPLETED Source: [facility] Office Visit (KENIA) HARLAN RUSSELL ([id number]) 1970 M Date Time Provider Department 02/28/25 1:00 PM DENITA LEBLANC During your visit today, we recorded the following information about you: Temperature Pulse Blood pressure Weight 97 degrees 76/minute 141/93 90.7 kg Height 1.753 m Denita Leblanc PA-C 02/28/2025 1:41 PM Addendum PELVIC FLOOR COLON AND RECTAL SURGERY Reason for visit: Review anorectal manometry and EMG results History of Present Illness: Harlan Russell is a 54 year old MALE who was seen at the request of Dr. Brady for anorectal manometry testing, rectal sensation testing and EMG recruitment. Mr. Russell was referred for testing due to symptoms [...] a compounded preparation from a pharmacy in [place], and previously used hydrocortisone. He has not [...] Weak - Relaxation on pushing: Minimal - Superintendent Sanitation Present: Yes Superintendent Sanitation present: Yes, Arabella Assessment Anorectal Physiology tests [...] 80-355 mL. Normal sensitivity Assessment and Plan: Harlan Russell is a 54 year old MALE who [...] DDSI behavioral in which patient declined today Denita Leblanc PA-C Pelvic Floor Colorectal Surgery I spent a total of 60 minutes on the date of the service which included preparing to see the patient, [id number] patient care, completing clinical documentation, obtaining and/or reviewing separately obtained history, performing a medically appropriate examination, counseling and educating the patient/family/caregiver, ordering medications, tests, or procedures, communicating with other HCPs (not separately reported), independently interpreting results (not separately reported), and communicating results to the patient/family/caregiver. Recording using [employer] software for draft documentation of the visit was discussed with the patient/authorized manufacturer representative; all questions welcomed and answered. Patient/authorized manufacturer representative agreed to proceed Denita Leblanc PA-C 02/28/2025 1:32 PM Addendum We discussed your chronic constipation and pelvic floor dysfunction: - I recommend starting baclofen suppositories, a muscle relaxer, to help with spasms and pain. Use one suppository as needed, up to twice daily. This prescription has been sent to [facility] in [place]. - Begin pelvic floor physical therapy to [...] for you. To make an appointment through [facility] call : [phone] If you are not close to a [facility] location, you can visit any one of these sites. Just put your zip code in and Pelvic Floor Physical Therapy places near you will populate. - [email or web address] - [email or web address]/ - https:// [email or web address] - [email or web address]/ Referring Provider: DILLAN GREGORIO [[id number]] Allergies As of Date: 02/28/2025 (No Known Allergies) Date Reviewed: 02/28/2025 Reviewed by: Macey Meek OCCA - Fully Assessed Reason for Visit: New Patient [172] Cmt: Pelvic floor dysfunction Primary Visit Diagnosis:Pelvic floor dysfunction [M62.89] Other Visit Diagnoses:Rectal spasm [K59.4] Constipation, unspecified constipation type [K59.00] Order(s):CONSULT TO PHYSICAL THERAPY [9032] Order #: [id number]: 1 FUTURE baclofen suppository 10 mg (CPD)1 suppository by RECTAL route two times a day as needed (rectal pain). Unwrap and insert as directed.Disp: 60 suppositoryRfl: 0 Prescriptions as of 02/28/2025 - ALPRAZolam (XANAX) 2 mg tablet Take 1 mg by mouth. - amLODIPine (NORVASC) 5 mg tablet 1 tablet Oral Once a day for 30 days - anastrozole (ARIMIDEX) 1 mg tablet Take by mouth. - cloNIDine HCl (CATAPRES) 0.1 mg tablet Take 0.1 mg by mouth. - HYDROcodone-acetaminophen (NORCO) 5-325 mg per tablet TAKE 1 TABLET BY MOUTH TWICE DAILY FOR PAIN FOR 15 DAYS - Pramoxine-Hydrocortisone (ANALPRAM-HC) 1-1 % rectal cream 1 application [...] as directed. Problem List As Of Date: 02/28/2025 (None) Other instructions from your clinician: We discussed your chronic constipation and pelvic floor dysfunction: - I recommend starting baclofen suppositories, a muscle relaxer, to help with spasms and pain. Use one suppository as needed, up to twice daily. This prescription has been sent to [facility] in [place]. - Begin pelvic floor physical therapy to [...] for you. To make an appointment through [facility] call : [phone] If you are not close to a [facility] location, you can visit any one of these sites. Just put your zip code in and Pelvic Floor Physical Therapy places near you will populate. - www.[email or web address] - [email or web address] - https:// [email or web address] - [email or web address] Prescriptions ordered this encounter Disp Refills Start End BACLOFEN 10 MG SUPPOSITORY (CPD) 60 s* 0 02/28/2025 03/30/2025 Cmt: Compound Medication Route: CT Si suppository by RECTAL route two times a day as needed (rectal pain). Unwrap and insert as directed. Encounter Status:Closed by DENITA LEBLANC on 02/28/25 HISTORY PHYSICAL Observed: 02/28/2025 1:00 PM Status: COMPLETED Source: [facility] HNO ID: [id number] Author: DENITA LEBLANC PA-C Service: ? Author Type: Physician Boomswing Operator Type: H&P Filed: 02/28/2025 13:41 Note Text: PELVIC FLOOR COLON AND RECTAL SURGERY Reason for visit: Review anorectal manometry and EMG results History of Present Illness: Harlan Russell is a 54 year old MALE who was seen at the request of Dr. Brady for anorectal manometry testing, rectal sensation testing and EMG recruitment. Mr. Russell was referred for testing due to symptoms [...] a compounded preparation from a pharmacy in [place], and previously used hydrocortisone. He has not [...] Weak - Relaxation on pushing: Minimal - Superintendent Sanitation Present: Yes Superintendent Sanitation present: Yes, Arabella Assessment Anorectal Physiology tests [...] 80-355 mL. Normal sensitivity Assessment and Plan: Harlan Russell is a 54 year old MALE who [...] DDSI behavioral in which patient declined today Denita Leblanc PA-C Pelvic Floor Colorectal Surgery I spent a total of 60 minutes on the date of the service which included preparing to see the patient, [id number] patient care, completing clinical documentation, obtaining and/or reviewing separately obtained history, performing a medically appropriate examination, counseling and educating the patient/family/caregiver, ordering medications, tests, or procedures, communicating with other HCPs (not separately reported), independently interpreting results (not separately reported), and communicating results to the patient/family/caregiver. Recording using [employer] software for draft documentation of the visit was discussed with the patient/authorized manufacturer representative; all questions welcomed and answered. Patient/authorized manufacturer representative agreed to proceed CNNURSE Observed: 02/28/2025 12:30 PM Status: COMPLETED Source: [facility] Nurse Visit (KENIA) HARLAN RUSSELL ([id number]) 1970 M Date Time Provider Department 02/28/25 12:30 PM LEXY GOLDMAN During your visit today, we recorded the following information about you: Referring Provider: DILLAN GREGORIO [[id number]] Allergies As of Date: 02/28/2025 (No Known Allergies) Date Reviewed: 02/28/2025 Reviewed by: Macey Meek OCCA - Fully Assessed Reason for Visit: Manometry [780] Visit Diagnosis:Pelvic floor dysfunction [M62.89] Order(s):ADULT [place] ANORECTAL MANOMETRY [7036788] Order #: [id number] Prescriptions as of 02/28/2025 - ALPRAZolam (XANAX) 2 mg tablet Take 1 mg by mouth. - amLODIPine (NORVASC) 5 mg tablet 1 tablet Oral Once a day for 30 days - anastrozole (ARIMIDEX) 1 mg tablet Take by mouth. - cloNIDine HCl (CATAPRES) 0.1 mg tablet Take 0.1 mg by mouth. - HYDROcodone-acetaminophen (NORCO) 5-325 mg per tablet TAKE 1 TABLET BY MOUTH TWICE DAILY FOR PAIN FOR 15 DAYS - Pramoxine-Hydrocortisone (ANALPRAM-HC) 1-1 % rectal cream 1 application [...] Of Date: 02/28/2025 (None) Encounter Status:Closed by LEXY GOLDMAN on 02/28/25 LOUISA Observed: 02/11/2025 12:00 AM Status: COMPLETED Source: [facility] Telephone ([facility]) NOFTZ,HARLAN S ([id number]) 1970 M Date Time Provider Department 02/11/25 JEANINE MARY [facility] During your visit today, we recorded the following information about you: Chris Martinez 02/11/2025 9:39 AM Signed Recevied referral from [facility] Left vm fot pt referral for botox injections Allergies As of Date: 02/11/2025 (Not on File) Date Reviewed: Never Reviewed Reason for Visit: Appointment [186] Cmt: Left vm we received referral for botox injections Problem List As Of Date: 02/11/2025 (None) Encounter Status:Closed by CHRIS MARTINEZ on 02/11/25 GASTROENTEROLOGY OFFICE/CLIN IC NOTE Observed: 01/24/2025 10:26 AM Status: F Source: [facility] Gastroenterology Office/Clin ic Note Chief Complaint constipation- We referred patient [...] with the above documentation with the following additions/exceptions : still with constipation drinks mg citrate [...] Daily, # 30 tab(s), Refills(s) 4, Pharmacy: [facility], 173, cm, 01/24/25 10:35:00 EDT, Height/Length Dosing, 86.3, kg, 01/24/25 10:35:00 EDT, Weight Dosing 2. Constipation by outlet dysfunction (K59.02: Outlet dysfunction constipation) Ordered: plecanatide, 3 mg = 1 tab(s), Oral, Daily, # 30 tab(s), Refills(s) 4, Pharmacy: [facility], 173, cm, 01/24/25 10:35:00 EDT, Height/Length Dosing, 86.3, kg, 01/24/25 10:35:00 EDT, Weight Dosing 3. Pelvic floor dysfunction (M62.89: Other specified disorders of muscle) Ordered: plecanatide, 3 mg = 1 tab(s), Oral, Daily, # 30 tab(s), Refills(s) 4, Pharmacy: [facility], 173, cm, 01/24/25 10:35:00 EDT, Height/Length Dosing, 86.3, kg, 01/24/25 10:35:00 EDT, Weight Dosing 4. Bloating (R14.0: Abdominal distension (gaseous)) Ordered: plecanatide, 3 mg = 1 tab(s), Oral, Daily, # 30 tab(s), Refills(s) 4, Pharmacy: [facility], 173, cm, 01/24/25 10:35:00 EDT, Height/Length Dosing, 86.3, kg, 01/24/25 10:35:00 EDT, Weight Dosing 5. Stress-related physiological response affecting medical condition (F54: Psychological and behavioral factors associated with disorders or diseases classified elsewhere) Ordered: plecanatide, 3 mg = 1 tab(s), Oral, Daily, # 30 tab(s), Refills(s) 4, Pharmacy: [facility], 173, cm, 01/24/25 10:35:00 EDT, Height/Length Dosing, 86.3, kg, 01/24/25 10:35:00 EDT, Weight Dosing 6. Drug dependence (F19.20: Other psychoactive substance dependence, uncomplicated) Ordered: plecanatide, 3 mg = 1 tab(s), Oral, Daily, # 30 tab(s), Refills(s) 4, Pharmacy: [facility], 173, cm, 01/24/25 10:35:00 EDT, Height/Length Dosing, 86.3, kg, 01/24/25 10:35:00 EDT, Weight Dosing Prescribe Trulance 3 mg daily Will refer to Dr. Barksdale for Botox injection of the anal sphincter Patient was declined to be seen by [facility] psychology. Might need to refer him to [facility] provider to refer him for GI psychology Follow-up No qualifying data available Problem List/Past Medical History Ongoing Bloating BPH (benign prostatic hyperplasia) Constipation Constipation [...] tablet, 25 mg= 1 tab(s), Oral, Daily Miralax 3350 17 gram packet, 17 gm, Oral, Daily, 3 refills nitrofurantoin macrocrystals-monohydrate 100 mg Cap Senna 8.6 mg oral tablet, 17.2 mg= 2 tab(s), Oral, Once a day (at bedtime), PRN, 3 refills testosterone Trulance 3 mg oral tablet, 3 mg= 1 tab(s), Oral, Daily, 4 refills Allergies No Known Medication Allergies Social History Alcohol Past. Beer. 1-2 times per month., 01/04/2025 Substance Abuse Past. Amphetamines, Cocaine, Ecstasy, Hallucinogens/LSD, Heroin, Marijuana, Methamphetamines. 1-2 times per month. Previous treatment: Treatment center, Inpatient, Outpatient., 01/23/2025 Tobacco Former smoker, quit more than 30 days ago Tobacco Use:. Never Smokeless Tobacco Use:. Cigarettes, 01/24/2025 Family History Drug dependence: Mother and Father. Hypertension: Mother. Immunizations Vaccine Date Status influenza virus vaccine, inactivated 06/20/2021 Recorded SARS-CoV-2 (COVID-19) mRNA BNT-162b2 vax 06/20/2021 Recorded SARS-CoV-2 (COVID-19) mRNA BNT-162b2 vax 12/08/2020 Recorded SARS-CoV-2 (COVID-19) mRNA BNT-162b2 vax 11/18/2020 Recorded influenza virus vaccine, inactivated 04/06/2020 Recorded influenza virus vaccine, inactivated 06/07/2019 Recorded diphtheria/pertussis, acel/tetanus adult 10/27/2013 Recorded Result Comment: Electronical ly Signed By: Caitlyn CHAVIS, Vivian Lance\.br\Date and Time Signed: 01/24/25 10:46 EDT AMBULATORY VISIT SUMMARY Observed: 01/24 10:26 AM Status: F Source: [facility] Ambulatory Visit Summary HARLAN RUSSELL :1970 Visit Date:01/24/2025 Ambulatory Visit Instructions [...] (Lopressor 25 mg oral tablet) nitrofurantoin (nitrofurantoin macrocrystals-monohydrate 100 mg Cap) polyethylene glycol 3350 (Miralax 3350 17 gram packet) senna (Senna 8.6 mg oral tablet) testosterone Procedures Performed Appendectomy, Colonoscopy. Discharge Vitals Heart Rate (Peripheral) 98 Blood Pressure 169/103 Height 68 in Height 173 cm Weight 190.259 lb Weight 86.3 kg BMI 28.83 What to do next Scheduled Follow-Up Appointments 2024 10:45 AM EDT With: Vivian Brady MD Where: [facility] [address] [place] [phone]- Medications What How Much When Why Instructions New plecanatide (Trulance 3 mg oral tablet) 1 Tablets By Mouth Every day Constipation Constipation by outlet dysfunction Pelvic floor dysfunction Bloating Stress- related physiological response affecting medical condition Drug dependence Refills: 4 Pickup at [facility] Unchanged amlodipine (amLODIPine 5 mg Tab) Contact prescribing physician if questions or concerns Unchanged anastrozole By Mouth Every day Contact prescribing physician if questions or concerns Unchanged clonidine (cloNIDine 0.1 mg tab) Contact prescribing physician if questions or concerns Unchanged metoprolol (Lopressor 25 mg oral tablet) 1 Tablets By Mouth Every day Contact prescribing physician if questions or concerns Unchanged nitrofurantoin (nitrofurantoin macrocrystals-monohydrate 100 mg Cap) Contact prescribing physician if [...] physician if questions or concerns Pharmacy Information [facility]: [address] [id number] [phone] Allergies No Known Medication Allergies Problems Ongoing [...] you for choosing us for your care. AMBULATORY VISIT SUMMARY Observed: 01/09 12:23 PM Status: F Source: [facility] Ambulatory Visit Summary HARLAN RUSSELL :1970 Visit Date:01/09/2025 Ambulatory Visit Instructions Your Diagnosis Constipation Constipation by outlet dysfunction Pelvic floor dysfunction Bloating Stress-related physiological response affecting medical condition Your Care Team Attending Physician - Caitlyn CHAVIS, Vivian Lance Primary Care Physician - CISCO BLANC DO This Is Your Medications List Contact prescribing physician if questions or concerns Patient Specific Meds (Enclomifene) amlodipine (amLODIPine 5 mg Tab) anastrozole clonidine (cloNIDine 0.1 mg tab) metoprolol (Lopressor 25 mg oral tablet) nitrofurantoin (nitrofurantoin macrocrystals-monohydrate 100 mg Cap) testosterone Procedures Performed Appendectomy, Colonoscopy. Discharge Vitals Heart Rate (Peripheral) 80 Blood Pressure 174/109 Height 68 in Height 173 cm Weight 200.4 lb Weight 90.9 kg BMI 30.37 What to do next Someone Will Contact You Regarding These Appointments [facility] External Ambulatory Referral, Gastroenterology, 01/09/25 13:16:00 EDT, [...] if questions or concerns Unchanged nitrofurantoin (nitrofurantoin macrocrystals-monohydrate 100 mg Cap) Contact prescribing physician if [...] you for choosing us for your care. GASTROENTEROLOGY OFFICE/CLIN IC NOTE Observed: 01/09/2025 12:23 PM Status: F Source: [facility] Gastroenterology Office/Clin ic Note Chief Complaint Alternating bowels, bloating severe [...] with the above documentation with the following additions/exceptions : PT with issues with bowels x [...] 25 mg= 1 tab(s), Oral, Daily nitrofurantoin macrocrystals-monohydrate 100 mg Cap testosterone Allergies No Known [...] Recorded influenza virus vaccine, inactivated 06/07/2019 Recorded diphtheria/pertussis, acel/tetanus adult 10/27/2013 Recorded Result Comment: Electronical ly Signed By: Caitlyn CHAVIS, Vivian Easonbr\Date and Time Signed: 01/09/25 13:17 EDT COMPLETE BLOOD COUNT Collected: 12/10/2024 1:37 PM Status: COMPLETED Source: [facility] TYPE CODE TESTS RESULT OUT OF RANGE REFERENCE UNITS LAB WBC(LOINC) WBC COUNT 5.2 4.0-11.0 X10E9/L LAB RBC(LOINC) RBC COUNT 5.04 4.10-5.70 X10E12/L LAB HGB(LOINC) HEMOGLOBIN 16.1 13.0-17.0 g/dL LAB HCT(LOINC) HEMATOCRIT 48.2 39-49 % LAB MCV(LOINC) MCV 96 80-100 fL LAB MCH(LOINC) MCH 31.9 27-34 pg LAB MCHC(LOINC) MCHC 33.4 32-36 g/dL LAB RDW(LOINC) RDW 13.5 11.5-15.0 % LAB PLTC(LOINC) PLATELET COUNT 184 150-450 X10E9 /L LAB MPV(LOINC) MPV 9.6 7-12 fL Performed By: #### 74659-3, CBC, TSHR, 2857-1, 2498-4, CMP #### [facility] ([id number]) [address] [place] [address], [address] [place] [address] COMPREHENSIVE METABOLIC PANEL Collected: 2024 1:37 PM Status: COMPLETED Source: [facility] TYPE CODE TESTS RESULT OUT OF RANGE REFERENCE UNITS LAB NA(LOINC) SODIUM 142 134-146 mmol/L LAB K(LOINC) POTASSIUM 4.2 3.5-5.0 mmol/L LAB CL(LOINC) CHLORIDE 105 98-109 mmol/L LAB CO2(LOINC) CARBON DIOXIDE 26 22-32 mmol/L LAB AGAP(LOINC) ANION GAP 11 5-15 mmol/L LAB BUN(LOINC) BLOOD UREA NITROGEN 13 5-23 mg/dL LAB CRET(LOINC) CREATININE 0.94 0.60-1.30 mg/dL Result Comment: METHOD TRACE ABLE TO IDMS STANDARD LAB GLU(LOINC) GLUCOSE 86 65-99 mg/dL LAB CA(LOINC) CALCIUM 9.6 8.5-10.5 mg/dL LAB TP(LOINC) TOTAL PROTEIN 7.4 6.0-8.0 g/dL LAB ALB(LOINC) ALBUMIN 4.5 3.2-5.3 g/dL LAB ALK(LOINC) ALKALINE PHOSPHATASE 101 39-130 U/L LAB AST(LOINC) AST 28 0-41 U/L LAB ALT1(LOINC) ALT 38 0-40 U/L LAB TBIL(LOINC) BILIRUBIN,TOTAL 0.6 0.3-1.2 mg/d L LAB EGFR(LOINC) eGFR (CKD-EPI) NON-RACE DEPENDENT >90 >59 ml/min/1 .73sq.m Result Comment: Reported eGFR is based on the CKD-EPI 2020 equation that does not use a race coefficient. Performed By: #### 11395-2, CBC, TSHR, 2857-1, 2498-4, CMP #### [facility] ([id number]) [address] [place] [address] IRON Collected: 12/10/2024 1:37 PM S tatus: COMPLETED Source: [facility] TYPE CODE TESTS RESULT OUT OF RANGE REFERENCE UNITS LAB FE(LOINC) IRON 184 50-212 ug/dL Performed By: #### 87538-8, CBC, TSHR, 2857-1, 2498-4, CMP #### [facility] ([id number]) [address] [place] [address], [place] [address] LIPID PROFILE Collected: 12/10/2024 1:37 PM Status: COMPLETED Source: [facility] TYPE CODE TESTS RESULT OUT OF RANGE REFERENCE UNITS LAB CHOL(LOINC) CHOLESTEROL 183 150-200 mg/dL LAB TRIG(LOINC) TRIGLYCERIDE 119 27-150 mg/dL LAB HDL(LOINC) HDL CHOLESTEROL 38 Low >39 mg/dL Result Comment: HDL <40 mg/dL - High Risk HDL > or = 40mg/dL- Desirable HDL >60 mg/dL - Negative Risk LAB VLDL(LOINC) VERY LOW LIPOPROTEIN 24 0-30 mg/dL LAB LDL(LOINC) LDL (CALC) 121 <130 mg/dL Result Comment: LDL <100 mg/dL - Desirable LDL >160 mg/dL - High Risk LAB CHDL(LOINC) CHOLESTEROL:HDL 4.8 1.0-5.0 Performed By: #### 94438-1, CBC, TSHR, 2857-1, 2498-4, CMP #### [facility] ([id number]) [address] [place] [address], [place] [address] PSA SCREEN Collected: 1:37 PM Status: COMPLETED Source: [facility] TYPE CODE TESTS RESULT OUT OF RANGE REFERENCE UNITS LAB PSAS(LOINC) PSA SCREEN 0.57 0.00-4.00 ng/mL Result Comment: The method used for this test is Graciela [place] DXI chemiluminescent immunoassay. Values obtained by different assay methods cannot be used interchangeably. Performed By: #### 84790-9, CBC, TSHR, 2857-1, 2498-4, CMP #### [facility] ([id number]) [address] [place] [address], [place] [address] TSH WITH REFLEX Collected: 12/10/2024 1:37 PM Status: COMPLETED Source: [facility] TYPE CODE TESTS RESULT OUT OF RANGE REFERENCE UNITS LAB TSH(LOINC) TSH 1.34 0.49-4.67 uIU/mL Performed By: #### 34527-8, CBC, TSHR, 2857-1, 2498-4, CMP #### [facility] ([id number]) [address] [place] [address], [address] [place] [address] COMPLETE BLOOD COUNT Collected: 09/11/2024 3:08 PM Status: COMPLETED Source: [facility] TYPE CODE TESTS RESULT OUT OF RANGE REFERENCE UNITS LAB WBC(LOINC) WBC COUNT 7.0 4.0-11.0 X10E9/L LAB RBC(LOINC) RBC COUNT 5.06 4.10-5.70 X10E12/L LAB HGB(LOINC) HEMOGLOBIN 16.4 13.0-17.0 g/dL LAB HCT(LOINC) HEMATOCRIT 47.4 39-49 % LAB MCV(LOINC) MCV 94 80-100 fL LAB MCH(LOINC) MCH 32.4 27-34 pg LAB MCHC(LOINC) MCHC 34.6 32-36 g/dL LAB RDW(LOINC) RDW 13.4 11.5-15.0 % LAB PLTC(LOINC) PLATELET COUNT 235 150-450 X10E9 /L LAB MPV(LOINC) MPV 9.4 7-12 fL Performed By: #### TSHR, CMP , 2857-1, CBC #### [facility] ([id number]) [address] [place] [address], [address] [place] [address] COMPREHENSIVE METABOLIC PANEL Collected: 2024 3:08 PM Status: COMPLETED Source: [facility] TYPE CODE TESTS RESULT OUT OF RANGE REFERENCE UNITS LAB NA(LOINC) SODIUM 140 134-146 mmol/L LAB K(LOINC) POTASSIUM 3.9 3.5-5.0 mmol/L LAB CL(LOINC) CHLORIDE 103 98-109 mmol/L LAB CO2(LOINC) CARBON DIOXIDE 27 22-32 mmol/L LAB AGAP(LOINC) ANION GAP 10 5-15 mmol/L LAB BUN(LOINC) BLOOD UREA NITROGEN 6 5-23 mg/dL LAB CRET(LOINC) CREATININE 1.05 0.60-1.30 mg/dL Result Comment: METHOD TRACE ABLE TO IDMS STANDARD LAB GLU(LOINC) GLUCOSE 87 65-99 mg/dL LAB CA(LOINC) CALCIUM 9.6 8.5-10.5 mg/dL LAB TP(LOINC) TOTAL PROTEIN 7.3 6.0-8.0 g/dL LAB ALB(LOINC) ALBUMIN 4.5 3.2-5.3 g/dL LAB ALK(LOINC) ALKALINE PHOSPHATASE 133 High 39-130 U/L LAB AST(LOINC) AST 26 0-41 U/L LAB ALT1(LOINC) ALT 20 0-40 U/L LAB TBIL(LOINC) BILIRUBIN,TOTAL 0.8 0.3-1.2 mg/d L LAB EGFR(LOINC) eGFR (CKD-EPI) NON-RACE DEPENDENT 83 >59 ml/min/1 .73sq.m Result Comment: Reported eGFR is based on the CKD-EPI 2020 equation that does not use a race coefficient. Performed By: #### TSHR, CMP , 2857-1, CBC #### [facility] ([id number]) [address] [place] [address], [place] [address] PSA SCREEN Collected: 3:08 PM Status: COMPLETED Source: [facility] CODE TESTS RESULT OUT OF RANGE REFERENCE UNITS LAB PSAS(LOINC) PSA SCREEN 0.71 0.00-4.00 ng/mL Result Comment: The method used for this test is Graciela [place] DXI chemiluminescent immunoassay. Values obtained by different assay methods cannot be used interchangeably. Performed By: #### TSHR, [facility] , 2857-1, CBC #### [facility] ([id number]) [address] [place] [address] TSH WITH REFLEX Collected: 09/11/2024 3:08 PM Status: COMPLETED Source: [facility] TYPE CODE TESTS RESULT OUT OF RANGE REFERENCE UNITS LAB TSH(LOINC) TSH 1.29 0.49-4.67 uIU/mL Performed By: #### TSHR, CMP , 2857-1, CBC #### [facility] ([id number]) [address] [place] [address], [address] [address] ALLERGIES DATE TYPE / CODE NAME / CODE REACTION SEVERITY SOURCE 03/19/2025 Drug Allergy/766796457(SNO MED CT) No Known Allergies/[id number] 88(RXNORM) Unknown [facility] Drug Class/200414639(SNOME D CT) NO KNOWN ALLERGIES [facility] Miscellaneous Allergy/507688442(SNO MED CT) No Known Medication Allergies [facility] Drug Class/431434621(SNOME D CT) NO KNOWN ALLERGIES [facility] Ambulatory [facility] ENCOUNTERS ADMIT/DISCHARGE ACCOUNT NUMBER ADMITTING ENCOUNTER CLASS LOCATION SOURCE 05/16/2025/05/16/20 [id number] [facility] [place] [facility]am 2 [facility] 05/15/2025/05/15/20 [id number] Ambulatory [facility]/23/2025/04/23/20 [id number] Ambulatory [facility] 04/02/2025/04/02/20 [id number] Ambulatory [facility] 03/19/2025/03/19/20 [id number] [facility] 03/18/2025/03/18/20 [id number] [facility] 03/13/2025/03/13/20 [id number] [facility] 02/28/2025/02/29/20 [id number] Ambulatory [facility] ding:[facility] 02/28/2025/02/29/20 [id number] Ambulatory [facility] Hospital[facility]il ding:[facility] 01/24/2025/01/25/20 [id number] [facility] D[facility]: CD:[id number] [facility] 01/09/2025/01/10/20 [id number] Ambulatory [place] [facility] DHRoom: CD:[id number] [facility] 12/31/2024 [id number] [facility] 12/10/2024/12/11/19 [id number] Ambulatory Building:PTH _PML [facility] 12/10/2024/12/11/19 [id number] Ambulatory Buildin 91 [facility]ulatory [facility] 09/11/2024/09/11/19 [id number] Ambulatory Building:PTH _PML [facility] 09/11/2024/09/11/19 [id number] Ambulatory Buildin 91 [facility] Ambulatory [facility] PAYERS ENCOUNTER GUARANTOR PAYER SUBSCRIBER SOURCE 05/16/2025 HARLAN Zimmerman AMBROCIOB: 1/[address] ATel: ~ ~(4 1 (HP) Primary Insurance:MedicaidPoli cy Number: [id number] Date:2024-02-02 HARLAN Zimmerman [facility]IAALEXMarySt. [facility] Hospital [facility]/2025 HARLAN Zimmerman CATALINADOB: 1[address] ATel: ~ ~(4 1 (HP) Primary Insurance:MedicaidPoli cy Number: [id number] Date:2024-02-02 HARLAN Zimmerman FRANCIAALEXMarySt. Elizabeth Hospital 04/23/2025 HARLAN Zimmerman CATALINADOB: 1/[address] ATel: ~ ~(4 1 (HP) Primary Insurance:MedicaidPoli cy Number: [id number] Date:2024-02-02 HARLAN Zimmerman SAUMYAERICMarySt. Elizabeth Hospital 04/02/2025 Primary Insurance:[facility] Number: [id number] Date:7723-12-29Edyq Name:Mario HARLAN Zimmerman AMBROCIOB: [id number] [address] [place] [address] [facility] 03/19/2025 Harlan Zimmerman [id number] [address] [place] [address]Mmp: () Primary Insurance:[facility] MedicaidPolicy Number: [id number] Date: [address], [place] [address]UW: Harlan Zimmerman NoftzDOB: [id number] [address] [place] [address]Ezo: () [facility] 03/19/2025 Secondary Insurance:Self PayPolicy Number: Effective Date:2025-03-18 NOT GIVENUNK [facility] 03/18/2025 Harlan Zimmerman [id number] [address] [place] [address]Lad: () Primary Insurance:[facility] MedicaidPolicy Number: [id number] Date: [address], [place] [address]ZF: Harlan Zimmerman NoftzDOB: [id number] [address] [place] [address]Lec: () [facility] 03/18/2025 Secondary Insurance:Self PayPolicy Number: Effective Date:2025-03-15 NOT GIVENUNK [facility] 03/13/2025 Harlan Zimmerman [id number] [address] [place] [address]Sqr: () Primary Insurance:[employer] MedicaidPolicy Number: [id number] Date: [address], [place] [address]OW: Harlan Zimmerman NoftzDOB: [id number] [address] [place] [address]Cbc: (HP) [facility] 03/13/2025 Secondary Insurance:Self PayPolicy Number: Effective Date:2025-03-13 NOT GIVENUNK [facility] 02/28/2025 Primary [facility] Number: [id number] Date:8030-31-68Etxn Name:Mario Zimmerman NOFTZDOB: [id number] [address] [place] [address] [facility] 02/28/2025 Primary Insurance[facility] Number: [id number] Date:3245-06-48Nocu Name:Mario FELDMANTrevDOB: [id number] [address] [place] [address] [facility] 01/24/2025 HARLAN Zimmerman NOFTZDOB: 1/[address] ATel: ~ ~(4 1 (HP) Primary Insurance:MedicaidPoli cy Number: [id number] Date:2024-02-02 HARLAN Zimmerman [facility] 01/09/2025 HARLAN Zimmerman NOFTZDOB: 1/[address] ATel: ~ ~(4 1 (HP) Primary Insurance:MedicaidPoli cy Number: [id number] Date:2024-02-02 HARLAN Zimmerman [facility] 12/10/2024 HARLAN GREGORIO NOFTZDOB: 1/[address] [place] [address]Xue: (HP) Primary Insurance:[facility] [place] MEDICAIDPolicy Number: [id number] Date:2024-03-22 HARLAN GREGORIO NOFTZDOB: [id number] [address] [place] [address]Pqy: (HP) [facility] 12/10/2024 HARLAN ALBRECHTB: 1[address] [place] [address]Iro: (HP) Primary Insurance:[facility] MEDICAIDPolicy Number: [id number] Date:2024-03-22 HARLAN ALBRECHTB: [id number] [address] [place] [address]Zom: (HP) [facility] 09/11/2024 HARLAN ALBRECHTB: [address] [place] [address]Chp: (HP) Primary Insurance:[facility] MEDICAIDPolicy Number: [id number] Date:2024-03-22 HARLAN ALBRECHTB: [id number] [address] [place] [address]Knw: (HP) [facility] 09/11/2024 HARLAN ALBRECHTB: [address] [place] [address]Foi: (HP) Primary Insurance:[facility] MEDICAIDPolicy Number: [id number] Date:2024-03-22 HARLAN ALBRECHTB: [id number] [address] [place] [address]Bii: (HP) [facility]
[2025-05-18 10:28] VITALS: BP 140/102; PULSE 91; TEMP 36.7; O2SAT 99; BMI 25.8
--- NOTE | 2025-05-18 10:42 | XR_ITS ---
The [address] [address] Patient Name: HARLAN ARNOLD MRN: [id number] date: 1970 Sex: M Assigned Patient Location: ED.MAIN Current Patient Location: ED.MAIN Accession/Order Number: [id number] Exam Date: 05/18/2025 11:30 Report Date: 05/18/2025 11:55 At the request of: MARISOL BALL MD Procedure: XR abdomen 1V XR abdomen 1V 05/18/2025 11:42 AM SIGNS AND SYMPTOMS: ^Possible constipation PROTOCOL: Frontal radiographs of the abdomen and pelvis COMPARISON: 05/10/2025 FINDINGS: There is a moderate amount of stool within the colon. Vascular calcifications are present in the pelvis. Degenerative changes are noted in the thoracolumbar spine, hips, and sacroiliac joints. XR/XR abdomen 1V IMPRESSION: There is a moderate amount stool within the colon. No bowel obstruction or free air. Impression dictated by: Dante Lisa M.D. 05/18/2025 11:55 AM Dictation Location: [facility]ATIONKin[facility] Electronically authenticated by: [id number] Y Date: 05/18/2025 11:55
--- NOTE | 2025-05-18 10:43 | ED.GENADUL1 ---
HPI HPI - General Adult General Chief complaint: Abdominal Pain Stated complaint: CONSTIPATION, SHORTNESS OF BREATH Time Seen by Provider: 05/18/25 10:30 Source: patient Mode of arrival: walk-in History of Present Illness HPI narrative: 54-year-old male presenting to the emergency department for a concern about his anal sphincter. He states it will not open to let anything out. He has an appointment with a specialist in [place] next week. No bleeding. He states he had some liquid stool. He also states he understands he needs to see a counselor or a psychiatrist but he cannot leave the house without getting anxious and putting my pants. Related Data Home Medications ?Medication ?Instructions ?Recorded ?Confirmed clonidine HCl 0.1 mg tablet mg 05/10/25 Previous Rx's ?Medication ?Instructions ?Recorded ondansetron 4 mg disintegrating 4 mg PO Q6H PRN nausea and 05/06/24 tablet vomiting #12 tabs ciprofloxacin HCl 500 mg tablet 500 mg PO Q12H #20 tabs 05/07/25 (Cipro) metronidazole 500 mg tablet 500 mg PO TID #30 tabs 05/07/25 dicyclomine 10 mg capsule 10 mg PO TID PRN abdominal pain #5 05/14/25 caps Allergies Allergy/AdvReac Type Severity Reaction Status Date / Time No Known Drug Allergies Allergy Verified 05/14/25 08:37 Opioid HPI Opioid Management Most Recent Opioid Data: Last Pain Scale 7 05/14/25, 08:38 Ur Phencyclidine Scrn, (NEGATIVE) Negative 05/06/24, 15:20 Review of Systems ROS Narrative A ten point review of systems is negative except as noted above. PFSH PFSH Social History Little interest or pleasure in doing things: not at all Feeling down, depressed, or hopeless: not at all Exam Narrative Exam Narrative: Nurses note and vital signs reviewed and patient is not hypoxic. General:The patient appears anxious and is in no distress Skin:Warm, dry, no pallor noted.There is no rash noted. Head:Normocephalic, atraumatic Eye: Normal conjunctiva, no drainage Ears, Nose, Mouth, and Throat: oral mucosa is moist. Nares patent. Cardiovascular:Regular Rate and Rhythm Respiratory:Patient is in no distress, no accessory muscle use, lungs are clear to auscultation, no wheezing, rales or rhonchi Back:non-tender, no CVA tenderness bilaterally to percussion. GI: Soft and nontender. Nondistended. Anal sphincter appears normal. No external hemorrhoids or fissures. Musculoskeletal: The patient has no evidence of calf tenderness, no pitting edema, symmetrical pulses noted bilaterally Neurological:A&O, normal speech Psychiatric:Cooperative Constitutional Vital Signs, click to edit/add: Last Vital Signs Temp 98.1 F 05/18/25 10:28 Pulse 91 H 05/18/25 10:28 Resp 22 H 05/18/25 10:28 BP 140/102 H 05/18/25 10:28 Pulse Ox 99 05/18/25 10:28 O2 Del Method Room Air 05/18/25 10:28 Course Vital Signs Vital signs: Vital Signs Temperature 98.1 F 05/18/25 10:28 Pulse Rate 91 H 05/18/25 10:28 Respiratory Rate 22 H 05/18/25 10:28 Blood Pressure 140/102 H 05/18/25 10:28 Pulse Oximetry 99 05/18/25 10:28 Oxygen Delivery Method Room Air 05/18/25 10:28 Temperature 98.1 F 05/18/25 10:28 Pulse Rate 91 H 05/18/25 10:28 Respiratory Rate 22 H 05/18/25 10:28 Blood Pressure 140/102 H 05/18/25 10:28 Pulse Oximetry 99 05/18/25 10:28 Oxygen Delivery Method Room Air 05/18/25 10:28 Medical Decision Making MDM Narrative Medical decision making narrative: X-ray shows some constipation. 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 Findings were discussed with the patient. There is no impaction. Differential Diagnosis Differential Diagnosis: Constipation, impaction Imaging Data Abdominal x-ray: Radiologist's impression: ITS Impressions Abdomen X-Ray 05/18/25 10:42 IMPRESSION: There is a moderate amount stool within the colon. No bowel obstruction or free air. Impression dictated by: Dante Lisa M.D. 05/18/2025 11:55 AM Dictation Location: [place] [address] Electronically authenticated by: [id number] Y Date: 05/18/2025 11:55 Discharge Plan Discharge Chief Complaint: Abdominal Pain Clinical Impression: Concern about digestive disease without diagnosis Patient Disposition: Home, Self-Care Time of Disposition Decision: 12:07 Condition: Good Mode of Transportation: Private Vehicle Prescriptions / Home Meds: No Action metronidazole 500 mg tablet 500 mg PO TID Qty: 30 0RF ciprofloxacin HCl [Cipro] 500 mg tablet 500 mg PO Q12H Qty: 20 0RF clonidine HCl 0.1 mg tablet ondansetron 4 mg tablet,disintegrating 4 mg PO Q6H PRN (Reason: nausea and vomiting) Qty: 12 0RF dicyclomine 10 mg capsule 10 mg PO TID PRN (Reason: abdominal pain) Qty: 5 0RF Print Language: Amharic Instructions: Constipation (ED) Referrals: MELY BONILLA [Primary Care Provider, Family Practice] - 1 week
== END 2025-05-18 12:16 | disposition home or self-care (01) ==
PROVIDERS: Emergency Provider Emergency Medicine; PCP Family Medicine
DX: Z71.1 Person with feared health complaint in whom no diagnosis is made (principal)
CPT/HCPCS: 74018; 99283

== ENCOUNTER 2025-06-12 18:33 | Emergency (ER) | payer OTHER, SELFPAY ==
[2025-06-12 18:37] VITALS: BP 132/64; PULSE 124; TEMP 36.9; O2SAT 96; BMI 22.2
--- NOTE | 2025-06-12 18:40 | ECG_ITS ---
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 Measurements Intervals Johnston Rate: 122 P: 46 MD: 142 QRS: 65 QRSD: 88 T: 248 QT: 324 QTc: 396 Interpretive Statements 1120 Sinus tachycardia [address] depression 4364 Twave abnormality, possible anterolateral ischemia 4664 Twave abnormality, possible inferior ischemia 9150 abnormal ECG Compared to ECG 05/08/2025 00:55:41 ST (T wave) deviation now present Possible ischemia now present Sinus rhythm no longer present Electronically Signed On 06-12-2025 23:51:58 EDT by MERLENE WESTBROOK M.D.
--- OUTSIDE RECORDS SUMMARY | 2025-06-12 18:43 | XMS_ITS | CCD ---
Author Organization [facility] Care Team Providers Care Production Control Pegboard Clerk Name Role Phone OSINOWO, OSIYEMI Unavailable Unavailable OSINOWO, OSIYEMI Unavailable Unavailable TYSON TOLLIVER Unavailable Unavailable TYSON TOLLIVER Unavailable Unavailable Mary King Unavailable Tawnya Andre Unavailable CHAD, DR CISCO Thomason Primary Care Unavailable MARKER, DR JUARES Admitting Unavailable MARKER, DR JUARES Attending Unavailable MARKER, DR JUARES Consulting Unavailable ALANA MORROW Consulting Unavailable DO Cisco Bonilla Primary Care Provider [phone] MD Ty Winkler Emergency Provider CISCO BONILLA Primary Care Physician [phone] JAME De Emergency Provider Cisco Bonilla DO Primary Care Provider [phone] Cisco Bonilla DO Primary Care Provider [phone] CISCO BONILLA Attending Unavailable FURLONG, CISCO Thomason Referring Unavailable [...] Unavailable Tyson Tolliver MD Primary Care Provider Caitlyn CHAVIS, Vivian Unavailable Cisco Bonilla DO Primary Care Provider [phone] Kailyn Ehsan MCLAUGHLIN Attending Provider Kailyn MCLAUGHLIN Ehsan Ro Other Provider [phone] Kailyn Ehsan Jia Admitting Unavailable Kailyn, Ehsan A Attending Unavailable Furlong, Cisco Primary Care Unavailable Kailyn, Ehsan A Admitting Unavailable Kailyn, Ehsan A Attending Unavailable Furlong, Cisco Primary Care Unavailable Kailyn, Ehsan A Admitting Unavailable Kailyn Ehsan A Attending Unavailable Carlos Albertolong, Cisco Primary Care Unavailable FELIPE ARIAS Referring Unavailable NADERER, TYSON A Primary Care Unavailable JUANAFELIPE Referring Unavailable SANKOVIC, LYDIA Attending Unavailable NADERER, TYSON A Primary Care Unavailable SANKOVIC, LYDIA Attending Unavailable NADERER, TYSON A Primary Care Unavailable FURLONG, CISCO G Primary Care Unavailable FLO MAYFIELD Attending Unavailable Mouchli, Mohamad A. Referring Unavailable Mouchli, Mohamad A. Admitting Unavailable Mouchli Mohamad A. Attending Unavailable Mouchli Mohamad A. Attending Unavailable Mouchli Mohamad A. Attending Unavailable Mouchli, Mohamad A. Attending Unavailable Mouchli, Mohamad A. Attending Unavailable Mouchli, Mohamad A. Attending Unavailable Momerry, Mohamad A. Attending Unavailable Ethan JARAMILLO Attending Unavailable Ethan JARAMILLO Attending Unavailable Didi Allen Attending Unavailable Allergies Allergy ClassificationReported Allergen(s)Allergy TypeDate of OnsetReaction(s) Facility (1 source)No Known Medication Allergies; Translations: [No Known Medication Allergies]Propensity to adverse reactions (disorder)[facility] Medications Current Medications MedicationDrug Class(es)DatesSig (Normalized)Sig (Original)acetaminophen 325 mg / HYDROcodone bitartrate 5 mg oral tablet (20 sources)Opioid AgonistStart: 47-20-4343abfr 1 tablet by mouth twice daily as needed for painStart: 03-04-2025 End: 80-14-2926imnz 1 tablet by mouth twice daily as needed for painHydrocodone- Acetaminophen 5-325 mg tablet Discontinued 1 TAB PO Twice daily as needed for pain 30 March 04, 2025 March 04, 2025 12:43pm Diagnosis: S92.351A Dispense: 30 (THIRTY)Start: 03-04-2025 End: 16-04-5822ggqh 1 tablet by mouth twice daily as needed for painHydrocodone- Acetaminophen 5-325 mg tablet Discontinued 1 TAB PO Twice daily as needed for pain March 04, 2025 March 13, 2025 4:14pm Diagnosis: S92.351A Dispense: 20 (Twenty)Start: 02-18-2025 End: 44-70-3865pkat 1 tablet by mouth twice daily as needed for painHydrocodone- Acetaminophen 5-325 mg tablet Discontinued 1 TAB PO Twice daily as needed for pain February 18, 2025 March 04, 2025 12:42pm Diagnosis: S92.351A Dispense: 30 (THIRTY)ALPRAZolam 0.5 mg oral tablet (20 sources)BenzodiazepineStart: 80-51-9179kirn 1 tablet by mouth once daily as needed for anxietyStart: 12-12-0289ynoz 0.5 tablet by mouth once daily as needed for anxietyALPRAZolam (XANAX) 2 mg tablet Indications: Anxiety Take 0.5 tablets (1 mg total) by mouth nightly as needed for anxiety. 12/10/2024 ActiveStart: 06-64-5059HODPGOwgaz (XANAX) 2 mg tablet Take 1 mg by mouth. 12/10/2024 Active Start: 08-19-2019 End: 62-26-6219nlvu 1 tablet by mouth three times dailyAlprazolam (Xanax) 1 mg tablet Discontinued 1 MG PO Three times daily 04 24August 19, 2019 7:00pm March 03, 2024 11:08am End: 75-63-9546ypgb 1 tablet by mouth once daily as needed for anxietyALPRAZolam (XANAX) 1 mg tablet Take 1 tablet (1 mg total) by mouth nightly as needed for anxiety. 03/15/2024 Discontinued (Therapy completed)ALPRAZolam ActiveamLODIPine 5 mg oral tablet (20 sources)Dihydropyridine Calcium Channel BlockerStart: 08-19-2019 End: 24-29-6774tzYLLUKfrj 5 mg Tab Refills(s) 0 Start Date: 02/02/24 Status: Ordered Repeat number: 1amLODIPine Besylate Activeanastrozole 1 mg oral tablet (20 sources)Aromatase InhibitorStart: 64-37-7607kjza 1 mg by mouth once daily anastrozole mg, Oral, Daily, Refills(s) 0 Start Date: 01/09/25 Status: Ordered Repeat number: 1Start: 03-03-2024 End: 96-41-5926fsvm 1 tablet by mouth every weekAnastrozole 1 mg tablet Discontinued 1 MG PO .weekly March 03, 2024 12:00am February 18, 2025 1:42pm baclofen 10 mg oral tablet (3 sources)gamma-Aminobutyric Acid-ergic AgonistStart: 14-93-5985izqe 1 tablet by mouth every twelve hoursbaclofen compounding powder (4 sources)Start: 39-65-4019wbzypqbi compounding powder Refills(s) 0, Spasm Start Date: 05/16/25 Status: Ordered Repeat number: 1Start: 94-98-1070amsoqtle compounding powder Refills(s) 0 Start Date: 05/16/25 Status: Ordered Repeat number: 1baclofen suppository 10 mg (CPD) (6 sources)Start: 03-26-2025 End: 33-61-3196ypcklxvm suppository 10 mg (CPD) Indications: Pelvic floor dysfunction , Rectal spasm , Constipation, unspecified constipation type 1 suppository by RECTAL route two times a day as needed (rectal pain). Unwrap and insert as directed. 60 suppository 03/26/2025 04/25/2025 ActiveStart: 02-28-2025 End: 01-71-0146fqelvktv suppository 10 mg (CPD) Indications: Pelvic floor dysfunction , Rectal spasm , Constipation, unspecified constipation type 1 suppository by RECTAL route two times a day as needed (rectal pain). Unwrap and insert as directed. 60 suppository 02/28/2025 03/30/2025 Activebisacodyl 10 mg rectal suppository (4 sources)Stimulant LaxativeStart: 35-45-9768rkwj 10 mg rectal route once daily as needed for constipationDulcolax 10 mg Supp 10 mg = 1 supp, Rectal, Daily, PRN for constipation, # 10 supp, Refills(s) 0, Pharmacy: [facility], 173, cm, 01/24/25 10:35:00 EDT, Height/Length Dosing, 86.3, kg,01/24/25 10:35:00 EDT, Weight Dosing Start Date: 04/19/25 Status: Ordered Quantity: 10.0 Unit: supp Repeat number: 1cloNIDine hydrochloride 0.1 mg oral tablet (20 sources)Central alpha-2 Adrenergic AgonistStart: 10-15-2024 End: 28-97-3954eegBGZgsv 0.1 mg tab Refills(s) 0, High blood pressure Start Date: 01/09/25 Status: Ordered Repeat number: 1cyclobenzaprine hydrochloride 10 mg oral tablet (1 source)Muscle RelaxantStart: 54-15-4128hlkm 1 tablet by mouth every eight hoursCyclobenzaprine HCl 10 MG 1 tablet at bedtime as needed Orally Three times a day for 7 days Activedicyclomine hydrochloride 10 mg oral capsule (20 sources)AnticholinergicStart: 11-11-1917dzqcrlgvmhc 10 mg Cap 20 mg = 2 cap(s), Refills(s) 0 Start Date: 05/16/25 Status: Ordered Repeat number: 1Start: 83-33-8692oopz 1 capsule by mouth every six hours as neededdicyclomine (BENTYL) 10 mg capsule Indications: Irritable bowel syndrome with both constipation and diarrhea Take 1 capsule (10 mg total) by mouth every 6 (six) hours as needed (cramping). 56 gxwuouh5912/17/2024 ActiveStart: 09-11-2024 End: 77-22-1499mvix 2 capsules by mouth every six hours as neededdicyclomine (BENTYL) 10 mg capsule Indications: Irritable bowel syndrome with both constipation anddiarrhea Take 2 capsules (20 mg total) by mouth every 6 (six) hours as needed (cramping and bloating). 120 capsule 1 09/11/2024 12/10/2024 Discontinued (Ineffective)Start: 09-06-2024 End: 37-65-3612wknbvjmeawp (BENTYL) 10 mg capsule 09/06/2024 09/11/2024 Discontinued (Reorder)Enclomifene (4 sources)Start: 48-00-3853Youhdrsfxev Enclomifene Start Date: 01/09/25 Status: Ordered Repeat number: 1Enclomiphene (1 source)Start: 51-67-8681avnq 1 capsule by mouth two times weeklyEnclomiphene Active 1 CAP PO Twice a Week March 03, 2024 12:00amhydrocortisone acetate 10 mg/ml / pramoxine hydrochloride 10 mg/ml rectal cream (20 sources)CorticosteroidStart: 12-20-2024 End: 25-30-1733ycqhziuvqhtzmp-pramoxine (ANALPRAM-HC) 1-1 % rectal cream Indications: Anal fissure Insert 1 Application into the rectum in the morning and 1 Application before bedtime. 30 g 05/13/2025 ActiveStart: 12-20-2024 Pramoxine-Hydrocortisone (ANALPRAM-HC) 1-1 % rectal cream 1 application by RECTAL route. 12/20/2024tiveStart: 12-14-2024 End: 70-00-2165CCXDGCUGD cream Indications: Anal fissure APPLY TO THE AFFECTED AREA THREE TIMES DAILY 28.4 g 1 12/14/2024 12/20/2024 DiscontinuedStart: 12-12-2024 End: 45-97-7503siccfxsioxvhfo-pramoxine (ANALPRAM HC) cream Apply topically 3 (three) times a day. Apply thin filmto affected area 30 g 1 12/14/2024 12/14/2024 DiscontinuedStart: 03-15-2024 End: 52-31-0127xjojazntfgqnsx-pramoxine (ANALPRAM-HC) 1-1 % rectal cream Insert 1 Application into the rectum in the morning and 1 Application before bedtime. 30 g 09/12/2024 12/10/2024 Discontinued (Therapy completed)Hydrophilic Cream ointment (3 sources)Start: 56-35-0038Wftok: 32-25-4911Luloeniqfkd Cream ointment Active 1 APPLIC TOPICAL Twice daily March 18, 2025 12:00am Complies with drug therapy hydrOXYzine pamoate 50 mg oral capsule (4 sources)AntihistamineStart: 00-98-7525retx 1 capsule by mouth three times daily as needed for anxietyhydrOXYzine (VISTARIL) 50 mg capsule Take 1 capsule (50 mg total) by mouth 3 (three) times a day asneeded for anxiety. 30 capsule 1 12/09/2023 Activeibuprofen 200 mg oral tablet (3 sources)Nonsteroidal Anti-inflammatory DrugStart: 03-82-6548ybrpuzbnk 0.05 mg/mg medicated patch (1 source)Antiarrhythmic, Amide Local AnestheticStart: 52-20-2085Frkpyfgcb 5 % 1 patch remove after 12 hours Externally Once a day for 7 days Jan, Active linaclotide 0.072 mg oral capsule (11 sources)Guanylate Cyclase-C AgonistStart: 44-12-7281rtty 1 capsule by mouth every twenty-four hourslinaCLOtide (LINZESS) 72 mcg capsule Take 72 mcg by mouth every 24 hours. 12/09/2023 Activemetoprolol tartrate 25 mg oral tablet (20 sources)beta-Adrenergic BlockerStart: 02-02-2024 End: 46-60-7521yjat 1 tablet by mouth once dailyLopressor 25 mg oral tablet 25 mg = 1 tab(s), Oral, Daily, Refills(s) 0 Start Date: 02/02/24 Status:Ordered Repeat number: 1Start: 02-15-2023 End: 69-35-1214lkmo 1 tablet by mouth twice dailymetoprolol tartrate (LOPRESSOR) 25 mg tablet take 1 tablet by mouth twice a day 60 tablet 5 02/15/2023 03/14/2024 Discontinued (Reorder)Metoprolol Tartrate ActivemetroNIDAZOLE 500 mg oral tablet (2 sources)Nitroimidazole AntimicrobialStart: 14-63-2007AxdvcGHMURQPP 500 mg Tab 500 mg = 1 tab(s), Refills(s) 0 Start Date: 05/16/25 Status: Ordered Repeat number: 1nitrofurantoin, macrocrystals 25 mg / nitrofurantoin, monohydrate 75 mg oral capsule (16 sources)Nitrofuran AntibacterialStart: 01-30-2024 End: 22-68-4005fxccyndgplvjtb macrocrystals-monohydrate 100 mg Cap Refills(s) 0 Start Date: 02/02/24 Status: Ordered Repeat number: 1ondansetron 4 mg disintegrating oral tablet (2 sources)Serotonin-3 Receptor AntagonistStart: 68-49-7324wvmuwumwmca 4 mg Dis Tab 4 mg = 1 tab(s), Refills(s) 0 Start Date: 05/16/25 Status: Ordered Repeat nu mber: 1petrolatum 1 mg/mg topical ointment (7 sources)Start: 84-36-5075kohygyfzjm, white 100 % gel 02/19/2025 Active plecanatide 3 mg oral tablet (16 sources)Start: 82-45-2952gppj 1 tablet by mouth once dailyTrulance 3 mg oral tablet 3 mg = 1 tab(s), Oral, Daily, # 30 tab(s), Refills(s) 4, Pharmacy: [facility], 173, cm, 01/24/25 10:35:00 EDT, Height/Length Dosing, 86.3, kg, 01/24/25 10:35:00 EDT, Weight Dosing Start Date: 01/24/25 Status: Ordered Quantity: 30.0 Unit: tab(s) Repeat number:5 Indications: Other specified disorders of muscle; Outlet dysfunction constipation; Constipation, u nspecified; Psychological and behavioral factors associated with disorders or diseases classified elsewhere; Other psychoactive substance dependence, uncomplicated; Abdominal distension (gaseous);polyethylene glycol 3350 20634 mg powder for oral solution (20 sources)Osmotic LaxativeStart: 09-11-2024 End: 58-32-9336nbrenqanlrao glycol (MIRALAX) 17 gram/dose powder Take 17 g by mouth in the morning. 510 g 5 05/13/2025 ActiveStart: 02-20-2024 End: 96-21-5374gvgdkpjvtixb glycol (GLYCOLAX) 17 gram/dose powder Take 17 g by mouth in the morning. 510 g 02/20/2024 03/15/2024 Discontinued (Therapy completed)Senna Leaves (6 sources)Start: 12-53-4171Rnkld 8.6 mg oral tablet 17.2 mg, 2 tab(s), Oral, Once a day (at bedtime) for constipation, 100 tab(s), Refill(s) 0, [facility], 173, cm, 01/24/25 10:35:00 EDT, Height/Length Dosing, 86.3, kg, 01/24/25 10:35:00 EDT, Weight Dosing Start Date: 04/19/25 Status: Ordered Quantity: 100.0 Unit: tab(s) Repeat number: 1Start: 99-74-1280Ngmxa 8.6 mg oral tablet 17.2 mg, 2 tab(s), Oral, Once a day (at bedtime) for constipation, 100 tab(s), Refill(s) 3, [facility], 173, cm, 01/09/25 12:52:00 EDT, Height/Length Dosing, 90.9, kg, 01/09/25 12:52:00 EDT, Weight Dosing Start Date: 01/09/25 Status: Ordered Quantity: 100.0 Unit: tab(s) Repeat number: 4Sertraline (2 sources)Serotonin Reuptake InhibitorSertraline HCl Activetamsulosin hydrochloride 0.4 mg oral capsule (13 sources)alpha-Adrenergic BlockerStart: 50-31-8596wmoz 1 capsule by mouth twice dailytamsulosin 0.4 mg Cap 0.4 mg = 1 cap(s), Oral, BID, # 60 cap(s), Refills(s) 11, Pharmacy: [facility], 173, cm, 05/16/25 10:50:00 EDT, Height/Length Dosing, 78, kg, 05/16/25 10:50:00 EDT, Weight Dosing Start Date: 05/17/25 Status: Ordered Quantity: 60.0 Unit: cap(s) Repeat number: 12 Start: 02-02-2024 End: 52-14-0723hueo 1 capsule by mouth once dailyTamsulosin 0.4 mg capsule Discontinued 0.4 MG PO Daily March 03, 2024 12:00am February 18, 2025 1:42pm tenapanor 50 mg oral tablet (2 sources)Start: 05-27-2025 End: 29-94-5914ysqu 1 tablet by mouth twice dailyIbsrela 50 mg oral tablet 50 mg = 1 tab(s), Oral, BID, X 30 day(s), # 60 tab(s), Refills(s) 6, Pharmacy: [facility], 173, cm, 05/27/25 12:31:00 EDT, Height/Length Dosing, 73, kg, 05/27/25 12:31:00 EDT, Weight Dosing Start Date: 05/27/25 Stop Date: 12/23/25 Status: Ordered Quantity: 60.0 Unit: tab(s) Repeat number: 7 Indications: Change in bowel habit; Constipation, unspecified; Otherspecified symptoms and signs involving the digestive system and abdomen; Retention of urine, unspecified; Abnormal weight loss;Testosterone (20 sources)AndrogenStart: 36-59-4194ejainxwgjgvr Refills(s) 0 Start Date: 01/09/25 Status: Ordered Repeat number: 1Start: 36-14-8717wbdyac 180 mg by intramuscular injection two times weeklyStart: 39-43-0500rnweyeruaxgw cypionate (DEPO-TESTOSTERONE) 200 mg/mL injection 1 mL. 03/03/2024 ActiveStart: 03-03-2024 inject 200 mg by intramuscular injection every weekTestosterone Cypionate Active 200 MG IM every week March 03, 2024 12:00amtestosterone cypionate (DEPOTESTOTERONE CYPIONATE) 100 mg/mL injection Inject 1 mL (100 mg total) into the appropriate muscle. Activewheat dextrin 3000 mg powder for oral solution (20 sources)Start: 03-27-2025 End: 45-91-7784gltx 3 g by mouth in the morningwheat dextrin (BENEFIBER SUGAR FREE, DEXTRIN,) 3 gram/4 gram powder Take 3 g by mouth in the morning. 152 g 5 05/13/2025 ActiveStart: 02-06-2025 End: 82-08-5182HPTFUVGAF SUGAR FREE, DEXTRIN, 3 gram/4 gram powd Take 3 g by mouth. 02/06/2025 ActiveStart: 01-29-2025 End: 40-65-5300mzoy 3 g by mouth in the morningBENEFIBER SUGAR FREE, DEXTRIN, 3 gram/4 gram powder take 3 (THREE) grams BY MOUTH IN THE MORNING 152 g 5 01/29/2025 02/06/2025 Discontinued (Reorder)Start: 01-28-2025 End: 03-98-5832rocv 3 g by mouth in the morningwheat dextrin (BENEFIBER SUGAR FREE, DEXTRIN,) 3 gram/3.8 gram powder Take 3 g by mouth in the morning. 144 g 5 01/28/2025 01/29/2025 DiscontinuedStart: 09-13-2024 End: 72-30-0629adlu 3 g by mouth in the morningwheat dextrin (BENEFIBER SUGAR FREE, DEXTRIN,) 3 gram/3.8 gram powder Take 3 g by mouth in the morning. 144 g 5 12/31/2024 01/26/2025 Discontinued (Reorder) Completed/Discontinued Medications MedicationDrug Class(es)DatesSig (Normalized)Sig (Original)amitriptyline hydrochloride 10 mg oral tablet (14 sources)Tricyclic AntidepressantStart: 10-15-2024 End: 38-69-7048vaok 1 tablet by mouth once dailyamitriptyline (ELAVIL) 10 mg tablet Take 1 tablet (10 mg total) by mouth nightly. 30 tablet 1 10/15/2024 12/10/2024 Discontinued (Patient Stopped On Own)Start: 06-11-2023 End: 31-90-7176paxh 1 tablet by mouth once dailyamitriptyline (ELAVIL) 25 mg tablet take 1 tablet by mouth once daily 30 tablet 1 06/11/2023 12/09/2023 Discontinued (Therapy completed)Start: 08-19-2019 End: 98-93-9314wqbu 1 tablet by mouth once dailyAmitriptyline 50 mg Tablet Discontinued 50 MG PO Daily August 19, 2019 1:00am March 03, 2024 11:08am Amitriptyline HCl Activecalcium polycarbophil 625 mg oral tablet (4 sources)Start: 03-15-2024 End: 29-13-6782sywb 1 tablet by mouth in the morning, then take 1 tablet by mouth at bedtimepolycarbophil (FIBERCON) 625 mg tablet Take 1 tablet (625 mg total) by mouth in the morning and 1 tablet (625 mg total) before bedtime. 60 tablet 2 03/15/2024 09/11/2024 Discontinued (Ineffective)ciprofloxacin 500 mg oral tablet (2 sources)Quinolone AntimicrobialStart: 63-09-0464phyt 1 tablet by mouth once dailyCipro 500 mg Tab 500 mg = 1 tab(s), Oral, Daily, Take 1 tablet the day before the procedure and 1 tablet after the procedure, # 2 tab(s), Refills(s) 0, Pharmacy: [facility], 173, cm, 05/16/25 10:50:00 EDT, Height/Length Dosing, 78, kg, 05/16/25 10:50:00 EDT, Weight Dosing Start Date: 05/16/25 Status: Ordered Quantity: 2.0 Unit: tab(s) Repeat number: 1Enclomiphene 25 mg capsule (6 sources)Start: 03-03-2024 End: 52-94-5752mivi 1 capsule by mouth two times weeklyEnclomiphene 25 mg capsule Discontinued 1 CAP PO Twice a Week March 03, 2024 12:00am February 18, 2025 1:43pmgabapentin 300 mg oral capsule (1 source)Anti-epileptic AgentStart: 01-24-2023 End: 30-73-0331jlwp 1 capsule by mouth three times dailygabapentin (NEURONTIN) 300 mg capsule Take 1 capsule (300 mg total) by mouth 3 (three) times a day. 01/24/2023 12/09/2023 Discontinued (Therapy completed)hydrocortisone 25 mg/ml topical cream (11 sources)CorticosteroidStart: 03-19-2024 End: 34-12-4131arfxgimicbibxt (ANUSOL-HC) 2.5 % rectal cream Indications: Rectal fissure Insert 1 Application intothe rectum in the morning and 1 Application before bedtime. 30 g 03/19/2024 12/10/2024 Discontinued(Therapy completed) hydrocortisone acetate 5 mg/ml / lidocaine hydrochloride 30 mg/ml rectal cream (12 sources)Antiarrhythmic, Corticosteroid, Amide Local AnestheticStart: 03-16-2024 End: 53-01-5561syslgldhz HCl-hydrocortison ac 3-0.5 % cream Insert 1 Application into the rectum 2 (two) times a day as needed (pain). 7 g 1 03/16/2024 12/10/2024 Discontinued (Dose adjustment)hyoscyamine sulfate 0.125 mg sublingual tablet (4 sources)Start: 03-15-2024 End: 28-57-5072nnql 1 tablet by mouth every four hours as neededhyoscyamine (LEVSIN/SL) 0.125 mg SL tablet Take 1 tablet (125 mcg total) by mouth every 4 (four) hours as needed for cramping. 30 tablet 1 03/15/2024 09/11/2024 Discontinued (Therapy completed)meloxicam 15 mg oral tablet (4 sources)Nonsteroidal Anti-inflammatory DrugStart: 03-15-2024 End: 64-29-6297hkyf 1 tablet by mouth once daily as needed for painmeloxicam (MOBIC) 15 mg tablet Take 1 tablet (15 mg total) by mouth daily as needed for pain (cramping). 30 tablet 2 03/15/2024 09/11/2024 Discontinued (Dose adjustment)NuLYTELY [place] oral powder for reconstitution (1 source)Start: 25-35-5081asqh 1 dose by mouth onceNuLYTELY [place] oral powder for reconstitution See Instructions, 1 EA, Refill(s) 0, Per physician in structions, prior to colonoscopy., [facility], 173, cm, 05/27/25 12:31:00 EDT, Height/Length Dosing, 73, kg, 05/27/25 12:31:00 EDT, Weight Dosing Start Date: 05/27/25 Status: Ordered Quantity: 1.0 Unit: EA Repeat number: 1 omeprazole 20 mg delayed release oral capsule (7 sources)Proton Pump InhibitorStart: 12-09-2023 End: 90-09-3647yojw 1 capsule by mouth in the morningomeprazole (PriLOSEC) 20 mg capsule Take 1 capsule (20 mg total) by mouth in the morning. 30 capsule 1 12/09/2023 03/15/2024 Discontinued (Therapy completed)oxyCODONE hydrochloride 5 mg oral tablet (2 sources)Opioid AgonistStart: 03-19-2025 End: 11-95-6935wbkl 1 tablet by mouth every six hours as needed for pain Oxycodone 5 mg tablet Discontinued 5 MG PO Q6H as needed for pain 10 03March 19, 2025 March 19, 2025 11:33amStart: 03-19-2025 End: 99-05-0274hqhx 1 tablet by mouth every six hours as needed for pain Oxycodone 5 mg tablet Discontinued 5 MG PO Q6H as needed for pain 10 03March 19, 2025 March 19, 2025 11:33ampeg 3350-sod sulf,mhib-kml-rtl 178.7-7.3-0.5 gram recon soln (1 source)Start: 02-13-2024 End: 21-58-7168epi 3350-sod sulf,evgl-puj-wwu 178.7-7.3-0.5 gram recon soln Indications: Change in bowel habits Take one container twice as directed by scheduled instructions 2 each 02/13/2024 02/14/2024 Discontinued (Formulary change)psyllium 3400 mg powder for oral suspension (10 sources)Start: 09-11-2024 End: 63-77-6038zrbwmbpl husk (MetamuciL) 3.4 gram/5.4 gram powder Take 3.4 g by mouth in the morning. 660 g 5 09/11/2024 12/10/2024 Discontinued (Therapy completed)sod sulf-pot chloride-mag sulf 1.479-0.188- 0.225 gram tablet (1 source)Start: 02-06-2024 End: 96-44-3538ppt sulf-pot chloride-mag sulf 1.479-0.188- 0.225 gram tablet Indications: Change in bowel habits Take 12 tablets twice a day as per instructions 24 tablet 02/06/2024 02/14/2024 Discontinued (Formulary change) sofosbuvir / velpatasvir (2 sources)Hepatitis C Virus NS5A Inhibitor, Hepatitis C Virus Nucleotide Analog NS5B Polymerase InhibitorEpclusa Not-Taking Problems Active Problems Problem ClassificationProblemDateDocumented DateEpisodic/ChronicAbdominal pain (8 sources)Periumbilical pain; Translations: [Abdominal pain]Onset: 03-26-2022 EpisodicAdministrative/social admission (1 source)Legal, financial, employment and/or socioeconomic history finding; Translations: [Distressed about housing issues]70-52-3978JgiplzddKfylmgm-related disorders (20 sources)Alcohol withdrawal delirium; Translations: [Delirium tremens]Onset: [id number] and rectal conditions (10 sources)Anal fissure; Translations: [Anal fissure, unspecified]Onset: [id number] disorders (20 sources)Anxiety; Translations: [Anxiety disorder, unspecified]Onset: [id number]j associated with dizziness or vertigo (1 source)Postural dizziness; Translations: [Dizziness and giddiness]04-02-2025 EpisodicDisorders of lipid metabolism (10 sources)Pnpthaxwxibeueizpbzl45-62-4892JqvpcrsKkadpzsbgcqscp and diverticulitis (20 sources)Diverticulosis of large intestine without perforation or abscess without bleeding; Translations: [Diverticular disease]Onset: 10-17-2019 79-46-8410JyytpnlSyjxbzqbno disorders (1 source)Gastroesophageal reflux disease; Translations: [Gastro-esophageal reflux disease without esophagitis]51-71-1842CjnvgboAnpsootxr hypertension (20 sources)Hypertensive disorder; Translations: [Benign essential hypertension] Onset: 555418-97-0029WennlmsItdhm and electrolyte disorders (8 sources)Hyperkalemia; Translations: [Dehydration]Onset: EpisodicFracture of lower limb (19 sources)Displaced fracture of fifth metatarsal bone, right foot, initial encounter for closed fracture; Translations: [Fracture of fifth metatarsal bone of right foot]Onset: 603319-83-6617ZbizdtinZqpjqotuhkzyb symptoms and ill- defined conditions (20 sources)Acute retention of urine ; Translations: [Other retention of urine] Onset: 129028-07-0762DllhblrrFznizuwwi (20 sources)Chronic hepatitis C; Translations: [Chronic viral hepatitis C]Onset: 194537-03-2477ZgasybuMrkkqcclh (3 sources)Viral hepatitis C; Translations: [Unspecified viral hepatitis C without hepatic coma]77-93-6515UxerreygRhwgtvbnbbs of prostate (11 sources)Benign prostatic hypertrophy without outflow obstruction; Translations: [Benign prostatic hyperplasia without lower urinary tract symptoms]Onset: 24-30-4258TsjridmQvueqrxqpocih mental health disorders (13 sources)Psychosomatic factor in physical condition; Translations: [Psychological and behavioral factors associated with disorders or diseases classified elsewhere]Onset: 87-39-5467OvbdwauOdvy disorders (20 sources)Moderate recurrent major depression; Translations: [Major depressive disorder, recurrent, moderate]Onset: 03-09-2021 Resolved: 074442-40-3221DobrgeeIrkkh connective tissue disease (5 sources)Disorder of muscle; Translations: [Other specified disorders of muscle]Onset: 56-82-6478PjrkfqhuMrszb connective tissue disease (14 sources)Pelvic floor dysfunction; Translations: [Other specified disorders of muscle]69-14-9108UduolterDorqf connective tissue disease (1 source)Other specified disorders of muscle; Translations: [Pelvic floor dysfunction]Onset: 17-43-4358SribwlndVpomt endocrine disorders (17 sources)Male hypogonadism; Translations: [Testicular hypofunction]Onset: 649412-55-1896VhenxihFibkj endocrine disorders (2 sources)Testicular hypofunction; Translations: [Testicular hypofunction] Onset: 65-09-1996SdbqivgEgmem gastrointestinal disorders (20 sources)Irritable bowel syndrome; Translations: [Mixed irritable bowel syndrome]Onset: 946069-77-4603GhixmvkQmxed gastrointestinal disorders (20 sources)Chronic idiopathic constipation; Translations: [Chronic idiopathic constipation]Onset: 639621-91-4823ZovjsbiBaqsk gastrointestinal disorders (1 source)Irritable bowel syndrome characterized by constipation; Translations: [Irritable bowel syndrome with constipation]33-01-0712MgfzyvkHctxw gastrointestinal disorders (3 sources)Mixed irritable bowel syndrome; Translations: [Mixed irritable bowel syndrome]Onset: 33-56-8529LqlvuglWnszj gastrointestinal disorders (7 sources)Acute constipation; Translations: [Constipation, unspecified] 14-81-8127SdodgvmlUnaha gastrointestinal disorders (9 sources)Increased frequency of imbdcacgsm85-79-4181OqfanszzIsfie gastrointestinal disorders (20 sources)Altered bowel function; Translations: [Change in bowel habit]Onset: 635325-02-9581NcyqwngdGhdxc gastrointestinal disorders (5 sources)Constipation, unspecified; Translations: [Constipation, unspecified] Onset: 05-07-6757EodzautnCpgpl gastrointestinal disorders (3 sources)Constipation by outlet obstruction; Translations: [Outlet dysfunction constipation]Onset: 74-72-2303VmbsodqfMyzzw gastrointestinal disorders (3 sources)Swollen abdomen; Translations: [Abdominal distension (gaseous)]Onset: 58-41-0622HtenqlbdJadhw gastrointestinal disorders (8 sources)Abdominal myoxgurt57-63-0690JvmcftdbJjzgy gastrointestinal disorders (20 sources)Constipation; Translations: [Outlet dysfunction constipation]Onset: 353162-29-7886DtafngngMhfib gastrointestinal disorders (1 source)Digestive system finding; Translations: [Other specified symptoms and signs involving the digestivesystem and abdomen]Onset: 33-76-1190VnegzwzqHmqmy gastrointestinal disorders (1 source)H/O: gastrointestinal disease; Translations: [Personal history of other diseases of the digestive system]Onset: 17-64-6080XzczqrtjAnngu gastrointestinal disorders (2 sources)History of vxaivzzorordnv90-07-7325RametbpfEfkck injuries and conditions due to external causes (10 sources)Injury of bron07-37-5797JhkbdcvcGxhym nutritional; endocrine; and metabolic disorders (1 source)Body mass index (BMI) 33.0-33.9, adult; Translations: [BODY MASS INDEX BMI 33.0-33.9 ADULT]Onset: 94-02-6024VhwlumuYouen nutritional; endocrine; and metabolic disorders (20 sources)Obesity caused by energy imbalance; Translations: [Class 1 obesity due to excess calories with serious comorbidity and body mass index (BMI) of 32.0 to 32.9 in adult]Onset: 225659-30-2574StgavxzKzrxc nutritional; endocrine; and metabolic disorders (1 source)Iron overload; Translations: [Other disorders of iron metabolism] 72-21-6721WlqggskRlhnw nutritional; endocrine; and metabolic disorders (2 sources)Other disorders of iron metabolism; Translations: [Other disorders of iron metabolism]Onset: 89-03-5404TrtbrdbZlwvd nutritional; endocrine; and metabolic disorders (3 sources)Overweight; Translations: [OVERWEIGHT]Onset: 57-89-6703LkutozlgLlitc nutritional; endocrine; and metabolic disorders (1 source)Abnormal weight loss; Translations: [Abnormal weight loss]Onset: 56-21-4027EdyyfarnNobpx nutritional; endocrine; and metabolic disorders (2 sources)Weight -04-9699XtbxkxdoQanbv screening for suspected conditions (not mental disorders or infectious disease) (20 sources)Patient encounter status; Translations: [Encounter for screening for malignant neoplasm of prostate]Onset: 10-12-2019 Resolved: 943269-49-6211XgyquihuGsblyrku codes; unclassified (20 sources)Restlessness and agitation; Translations: [Restlessness and agitation]Onset: 495192-66-7828YkrstgzJquszguq codes; unclassified (1 source)Postprocedural state finding; Translations: [Other specified postprocedural states]88-78-9323SyixaompIicvoueuiwmwe and other psychotic disorders (20 sources)Paranoid disorder; Translations: [Delusional disorders]Onset: 520302-54-1757OgafpieCidquen on above:Problem List clean-up per request of Phys. EHR CmteScreening and history of mental health and substance abuse codes (3 sources)Ex-smoker; Translations: [Personal history of nicotine dependence] Onset: 198145-74-8975EkpdecmbLiflnjygr-bcwmevp disorders (20 sources)Nicotine dependence, cigarettes, uncomplicated; Translations: [Polysubstance abuse ]Onset: 680611-07-2327DvuhklfDzadfjv on above:Problem List clean-up per request of Phys. EHR CmteUnclassified (2 sources)Unknown / UNK(Unknown)Onset: 98-79-2276Hlwcxfbaibcv (9 sources)Patient encounter owyrlz19-86-1045Jtxbkbbtsaix (18 sources)Hypogonadism; Translations: [Hypogonadism]Onset: 10-12-2021 21-76-4818Glvoyuctyfsu (1 source)Annual ExamOnset: 26-41-4426Squzddgfilel (3 sources)Rectum byfjajn89-50-1179Lgzgqyofpiqw (2 sources)Chronic rectal llom33-72-2824Rowbtvcdgwra (1 source)Established PatientOnset: 04-02-2025 Past or Other Problems Problem ClassificationProblemDateDocumented DateEpisodic/ChronicAbdominal hernia (2 sources)Umbilical hernia; Translations: [Umbilical hernia without obstruction or gangrene]00-78-2287ObedpxpuOznqz and unspecified renal failure (4 sources)Acute kidney failure, unspecified; Translations: [ACUTE KIDNEY FAILURE, UNSPECIFIED]Onset: 00-38-5074MrxmgozsMdeprdoriteta and screening for infectious disease (2 sources)Contact with and (suspected) exposure to other viral communicable diseasesOnset: 08-11-2021 Resolved: 76-18-5863GiublvxoJdtt disorders (20 sources)Mood disordersOnset: 03-15-2024 Resolved: Other and unspecified benign neoplasm (20 sources)Polyp of sigmoid colon; Translations: [Polyp of colon]Onset: 280567-02-8600JskhxiqjNjmev and unspecified benign neoplasm (1 source)Polyp of colon; Translations: [Polyp of colon]82-06-7448FbaarndfYncri connective tissue disease (1 source)Rhabdomyolysis; Translations: [RHABDOMYOLYSIS]Onset: 08-30-2016 EpisodicOther connective tissue disease (20 sources)Non-traumatic rhabdomyolysis; Translations: [Rhabdomyolysis]Onset: 125755-85-7952DzjxiavoAjett connective tissue disease (20 sources)Internal impingement of right shoulder; Translations: [Impingement syndrome of right shoulder]Onset: 981778-14-3941NbaeungtPmfai injuries and conditions due to external causes (20 sources)Compartment syndrome; Translations: [Traumatic compartment syndrome of unspecified upper extremity,initial encounter]Onset: EpisodicOther nutritional; endocrine; and metabolic disorders (17 sources)Overweight; Translations: [Overweight]Onset: EpisodicResidual codes; unclassified (20 sources)Persistent insomnia; Translations: [Insomnia, unspecified]Onset: 549275-72-3021DhszzfowQfsmhtxecjf failure; insufficiency; arrest (adult) (20 sources)Acute hypoxemic respiratory failure; Translations: [Acute respiratory failure with hypoxia]Onset: 325745-47-4768AczoxjniOkkpunikt- related disorders (1 source)Benzodiazepine withdrawal; Translations: [Sedative, hypnotic or anxiolytic use, unspecified with withdrawal, uncomplicated]35-17-0185Xzsftgvj Viral infection (20 sources)Disease caused by 2019-nCoV; Translations: [COVID-19]Onset: 719341-62-9492FdeujpwlBclge infection (1 source)COVID-19Onset: 09-01-2021 Resolved: 09-01-2021 Results Test NameValueInterpretationReference RangeFacilitySurgical Pathology Reporton [id number] Pathology ReportAvita Health [facility] [place] [address]- Surgical Pathology Report Collected Date/Time: 06/04/2025 09:36 EDT Pathologist: Thaddeus CHAVSI PhD, Pravin Cool Received Date/Time: 06/04/2025 10:50 EDT Caitlyn CHAVIS, Vivian Brady MD, Vivian Lyons Surgical Pathology Report - 06/10/2025 11:38 EDT - Auth (Verified) Final Diagnosis A: STOMACH, BIOPSY: - MILD CHRONIC GASTRITIS. - NO INTESTINAL METAPLASIA IDENTIFIED. - NO H. PYLORI MICROORGANISMS IDENTIFIED WITH IMMUNOSTAIN. B: DUODENUM, BIOPSY: - DUODENAL MUCOSA WITHIN NORMAL LIMITS. (Electronic Signature) Pravin Travis MD PhD 06/10/2025 11:38 Clinical Information Chg in bowel habits, constipation, weight loss, hx diverticulitis Pre-Op Diagnosis: Change in bowel habits, constipation, weight loss, hx diverticulitis Procedure: EGD, colonoscopy Post-Op Diagnoses: 1. Lax anal tone 2. Diverticulosis 3. Internal hemorrhoids 4. Reflux esophagitis 5. Hiatal hernia 6. Gastropathy Specimen(s) Received A: Gastric biopsy B: Duodenal biopsy Gross Description A: Received in formalin, labeled with patient name, number and gastric biopsy are four fragments of mccray-pink tissue ranging from 0.1 cm, up to 0.3 cm in greatest dimension. Specimen is entirely submitted in one cassette. B: Received in formalin, labeled with patient name, number and duodenal biopsy are fragments of mccray-pink tissue ranging from less than 0.1 cm, up to 0.2 cm in greatest dimension. Specimen is entirely submitted in one cassette. (DC) DC:JACE Microscopic Description The use of one or more reagents in the above tests is regulated as an analyte specific reagent (ASR). The test or tests are ordered following initial H&E microscopic examination. The performance characteristics were determined by the [facility] Surgical Pathology. They have not been cleared or approved by the [place] Food and Drug Administration. The FDA has determined that such clearance or approval is not necessary. These tests are used for clinical purposes. They should not be regarded as investigational or for research. Appropriate positive and negative controls are performed and are acceptable. This report was transcribed using voice recognition technology and might contain unintended computerized school admissions representative errors. Microscopic examination performed unless gross only specified. Quality was accessed and acceptable.[facility] CenterComment on above:Performed By: #### [id number] #### [facility] [address] [place], [place] [address]Nqyg OR Intraoperative Recordon [id number] OR Intraoperative RecordMain OR Intraoperative Record IntraOp Document Type FT Summary Primary Physician: Vivian Brady MD Finalized Date/Time: 06/05/25 14:30:35 Pt. Name: CHAI ARNOLD Elsie Pisano./Sex: 1970 Male Med Rec #: [id number] Physician: Vivian Brady MD Financial #: [id number] Pt. Type: O Room/Bed: / Admit/Disch: 06/04/25 09:03:06 - 06/04/25 23:59:59 Institution: Case Times FT Entry 1 Patient Times In Room 06/04/25 09:31:00 Out Room 06/04/25 10:00:00 Procedure Times Start 06/04/25 09:35:00 Stop 06/04/25 09:57:00 Anesthesia Times Start 06/04/25 09:31:00 Stop 06/04/25 10:00:00 Time at [facility] 06/04/25 09:45:00 Last Modified By: Denise BENITES, Carla Hernandez 06/04/25 09:59:58 General Comments: 0970 EGD completed/KS,RN 0943 oscopy began/KS,RN Case Attendance FT Entry 1 Entry 2 Entry 3 Case Attendee Chadwick PARRA, Ness Roe CST, Alexandria M Role Performed Anesthesiologist Staff - Other Scrub - Primary Insurance Service Representative Time In 06/04/25 09:31:00 06/04/25 09:40:00 06/04/25 09:31:00 Time Out 06/04/25 09:39:00 06/04/25 10:00:00 06/04/25 10:00:00 Procedure EGD AND COLONOSCOPY(.) EGD AND COLONOSCOPY(.) EGD AND COLONOSCOPY(.) Comments Dr. Alvares supervising Help in room. procedure. Last Modified By: Denise RN, Carla Walker RN, Carla Walker RN, Carla Hernandez 06/04/25 09:59:59 06/04/25 09:59:59 06/04/25 09:59:59 Entry 4 Entry 5 Entry 6 Case Attendee Caitlyn CHAVIS, Vivian Walker RN, Ty Wilkinson Role Performed Surgeon - Primary Operations General Agent - Primary Anesthesiologist Insurance Service Representative Time In 06/04/25 09:31:00 06/04/25 09:31:00 06/04/25 09:38:00 Time Out 06/04/25 10:00:00 06/04/25 10:00:00 06/04/25 10:00:00 Procedure EGD AND COLONOSCOPY(.) EGD AND COLONOSCOPY(.) EGD AND COLONOSCOPY(.) Comments Dr. Alvares supervising procedure. Last Modified By: Denise RN, Carla Walker RN, Carla Walker RN, Carla Hernandez 06/04/25 09:59:59 06/04/25 09:59:59 06/04/25 09:59:59 Perioperative Protocols FT Pre-Care Text: Implements protective measures prior to operative or invasive procedure, confirms identity before the operative or invasive procedure, verifies operative procedure, surgical site, and laterality Entry 1 Procedure(s) EGD AND COLONOSCOPY(.) Patient Identity Birthday, ID Band Verified (select at Check, Patient least 2): Participation Consents / H and P Anesthesia Consent, Operative Site N/A Verified H&P, Surgery/Procedure Marking Verified Consent Surgical Site No Laterality Verified n/a Verified Procedure Verified Yes Correct Patient Yes Position Verified Availability Equipment, Medication Prep Dry n/a Verified (If Applicable) PreOp Antibiotic No Time Out Dre Genao CRNA, Given Participants Yoav SULLIVAN, Caitlyn Huang MD, Denise Rodriguez RN, Carla Hernandez Time Out Complete 06/04/25 09:33:00 Outcomes Met? Yes Last Modified By: Carla Walker RN 06/04/25 09:33:48 Post-Care Text: The patient is free from signs and symptoms of injury caused by extraneous objects Allergy Information FT Pre-Care Text: Verifies allergies Entry 1 Allergies Reviewed? Yes Allergies Reviewed Self/Patient With Outcomes Met? Yes Last Modified By: Carla Walker RN 06/04/25 09:33:58 Post-Care Text: The patient received appropriate medication(s) safely administered during the perioperative period Surgical Procedures FT Entry 1 Procedure Description Procedure EGD AND COLONOSCOPY Modifiers . Surgeon Description EGD with gastric biopsy, duodenal biopsy. Colonoscopy. Primary Procedure Yes Primary Surgeon Vivian Brady MD Start 06/04/25 09:35:00 Stop 06/04/25 09:57:00 Anesthesia Type General Surgical Service Gastroenterology Wound Class 2 - Clean-Contaminated Last Modified By: Carla Walker RN 06/04/25 09:58:00 General Case Data FT Pre-Care Text: Classifies surgical wound, implements aseptic technique, initiates traffic control Entry 1 Case Information OR ENDO 1 FT Case Level Level 2 Wound Class 2 - Clean-Contaminated Specialty Gastroenterology ASA Class 3 Preop Diagnosis CHANGE IN BOWEL HABITS, Postop Same As Preop No CONSTIPATION, WEIGHT LOSS, HISTORY OF DIVERTICULITIS Postop Diagnosis EGD- hiatal hernia, Outcomes Met? Yes reflux esophagitis and gastropathy. Colonoscopy- lax anal spincter tone, diverticulosis and internal hemorrhoids. Last Modified By: Carla Walker RN 06/04/25 09:59:24 Post-Care Text: The patient is free from signs and symptoms of infection Skin Assessment (Pre Procedure) FT Pre-Care Text: Implements protective measures to prevent skin/ tissue injury due to thermal or mechanical sources Evaluates for signs and symptoms of physical injury to skin and tissue Entry 1 Skin Integrity Intact, [place], Warm, & Skin Abnormality No Dry Outcomes Met? Yes Last Modified By: Carla Walker RN 06/04/25 09:34:29 Post-Care Text: The patien (more content not included)...[facility] Discharge Instructionson 89-70-7121Ojwemoigs InstructionsDischarge Instructions CHAI ARNOLD :1970 Visit Date:06/04/2025 Inpatient Discharge Instructions Your Care Team Admitting Physician - Vivian Brady MD Referring Physician - Vivian Brady MD Reason for Your Visit CHANGE IN BOWEL HABITS, CONSTIPATION, WEIGHT LOSS, HISTORY OF DIVERTICULITIS Your Diagnosis Diverticulosis Esophagitis, reflux Gastropathy Hemorrhoids, internal Tests Performed Pathology Tissue Exam -- Results Pending -- Please visit your patient portal for your results or contact your primary care physician. This Is Your Medications List baclofen (baclofen compounding powder) clonidine (cloNIDine 0.1 mg tab) tamsulosin (tamsulosin 0.4 mg Cap) tenapanor (Ibsrela 50 mg oral tablet) Procedure History Colonoscopy (06/04/2025), EGD - esophagogastroduodenoscopy (06/04/2025), Appendectomy, Colonoscopy. Discharge Vitals Temperature (Temporal Artery) 36.5 ???C Heart Rate (Monitored) 80 Respiratory Rate 10 Blood Pressure 108/72 Height 173 cm Weight 73 kg BMI 24.39 What to do next Instructions From Your Doctor No qualifying data available. Previously Scheduled Follow-Up Appointments Tuesday 2:00 PM EDT With: Ethan JARAMILLO MD Where: [facility] [address] [place] [address]- New Follow Up Appointments after Discharge Follow Up with Caitlyn CHAVIS, Vivian Lance, [facility], [facility] When: Comments: Call for any problems. If you do not have a follow-up appointment already scheduled, please call the office. Where: [address], [address] [place] [phone] Business (1) Medications What How Much When Why Instructions Next Dose Unchanged baclofen (baclofen compounding powder) Unchanged clonidine (cloNIDine 0.1 mg tab) Unchanged tamsulosin (tamsulosin 0.4 mg Cap) 1 Capsules By Mouth 2 times a day Unchanged tenapanor (Ibsrela 50 mg oral tablet) 1 Tablets By Mouth 2 times a day Constipation Change in bowel habits Rectal pressure Weight loss Urinary retention Duration: 30 Days Test Results No qualifying data available. Allergies No Known Medication Allergies Problems Ongoing - Any problem that you are currently receiving treatment for. Bloating BPH (benign prostatic hyperplasia) Constipation Constipation by outlet dysfunction Drug dependence Frequent bowel movements Head injury High cholesterol History of diverticulitis HTN (hypertension) Pelvic floor dysfunction Prostate cancer screening Stress-related physiological response affecting medical condition Urinary retention Weight loss Education Materials Esophagitis Esophagitis is inflammation of the esophagus. The esophagus is the tube that carries food from the mouth to the stomach. Esophagitis can cause soreness or pain in the esophagus. This condition can make it difficult and painful to swallow. What are the causes? Most causes of esophagitis are not serious. Common causes of this condition include: ??? Gastroesophageal reflux disease (GERD). This is when stomach contents move back up into the esophagus (reflux). ??? Repeated vomiting. ??? An allergic reaction, especially caused by food allergies (eosinophilic esophagitis). ??? Injury to the esophagus by swallowing large pills with or without water, or swallowing certain types of medicines. ??? Swallowing harmful chemicals, such as household cleaning products. ??? Drinking a lot of alcohol. ??? An infection of the esophagus. This most often occurs in people who have a weakened immune system. ??? Radiation or chemotherapy treatment for cancer. ??? Certain diseases such as sarcoidosis, Crohn's disease, and scleroderma. What are the signs or symptoms? Symptoms of this condition include: ??? Difficult or painful swallowing. ??? Pain with swallowing acidic liquids, such as citrus juices. You may also have pain when you burp. ??? Chest pain and difficulty breathing. ??? Nausea and vomiting. ??? Pain in the abdomen. ??? Weight loss. ??? Ulcers in the mouth and white patches in the mouth (candidiasis). ??? Fever. ??? Coughing up blood or vomiting blood. ??? Stool that is black, tarry, or bright red. How is this diagnosed? This condition may be diagnosed based on your medical history and a physical exam. You may also have other tests, including: ??? A test to examine your esophagus and stomach with a small flexible tube with a camera (endoscopy). ??? A test that measures the acidity level in your esophagus. ??? A test that measures how much pressure is on your esophagus. ??? A barium swallow or modified barium swallow to show the shape, size, and functioning of your esophagus. ??? Allergy tests. How is this treated? Treatment for this condition depends on the cause of your esophagiti (more content not included)...[facility] CenterComment on above:Result Comment: Electronically Signed By: Cornel BENITES, Rosemary Perdue\Date and Time Signed: 06/04/25 10:10 EDTEGDon [id number]ykBSW Patient: CHAI ARNOLD Age: 54 years Sex: Male : 1970 Associated Diagnoses: None Author: Vivian Brady MD Pre-Procedure Procedure Date 06/04/2025 09:58:00 . Procedure Type: Esophagogastroduodenoscopy with biopsy. Procedure provider Performed by Vivian Brady MD. Current history and physical Documented on chart. Informed Consent After discussing the rationale, risks and benefits, and alternatives to this procedure, the patient provided signed consent for the procedure. Pre-procedure diagnosis: Weight loss. Medications (Selected) Inpatient Medications Ordered Lactated Ringers IV Cookie 1000 mL 1,000 mL: 1,000 mL, IV, 100 mL/hr, Routine, Start date 06/04/25 9:25:00 EDT, 10 hour(s), Total volume (mL): 1,000, 73 kg, 1.87, m2 Sodium Chloride 0.9% IV Cookie 1000 mL 1,000 mL: 1,000 mL, IV, 20 mL/hr, Routine, Start date 06/04/25 6:39:00 EDT, 50 hour(s), Total volume (mL): 1,000, 73 kg, 1.87, m2 Prescriptions Prescribed Ibsrela 50 mg oral tablet: 50 mg = 1 tab(s), Oral, BID, X 30 day(s), # 60 tab(s), Refills(s) 6, Pharmacy: [facility], 173, cm, 05/27/25 12:31:00 EDT, Height/Length Dosing, 73, kg, 05/27/25 12:31:00 EDT, Weight Dosing tamsulosin 0.4 mg Cap: 0.4 mg = 1 cap(s), Oral, BID, # 60 cap(s), Refills(s) 11, Pharmacy: [facility], 173, cm, 05/16/25 10:50:00 EDT, Height/Length Dosing, 78, kg, 05/16/25 10:50:00 EDT, Weight Dosing Documented Medications Documented baclofen compounding powder: Refills(s) 0, Spasm cloNIDine 0.1 mg tab: Refills(s) 0, High blood pressure Anticoagulant/antiplatelet None. ASA Classification: Class III. . Monitoring: See anesthesia record. . Procedure The procedure was performed in the hospital. See anesthesia record for sedation given during procedure. The patient was positioned starting in the left lateral decubitus position and with safety measures. Endoscope type used was an adult- size, introduced orally, advanced to the 2nd portion of the duodenum. No difficulty was encountered during the procedure. Views were excellent. The patient tolerated the procedure well. Findings 1. Normal esophagus. Small hiatal hernia. Mild reflux esophagitis 2. Erythema in the antrum, mild patchy. Otherwise normal stomach. Biopsies of the stomach were taken to rule out H. pylori. 3. Normal duodenum. Images Procedure images: [id number].jpg [id number]_[id number].jpg [id number]_[id number].jpg [id number]_[id number].jpg [id number]__[id number].jpg . Post-Procedure Complications: none. Estimated blood loss: minimal. Specimens: sent to pathology. Devices/ implants: none left in place. Impression and Plan reflux esophagitis Hiatal hernia Gastropathy Recommendations: -Resume previous diet -Resume home medications -Await pathology results, follow in GI clinic in 1-2 after discharge GERD reflux esophagitisUniversity Hospitals Cleveland Medical CenterComment on above:Other Comment: Missing Attachment - attachment storage system not supported [id number] Can be viewed in source system Missing Attachment - attachment storage system not supported [id number] Can be viewed in source systemMissing Attachment - attachment storage system not supported [id number] Can be viewed in source systemMissing Attachment - attachment storage system not supported [id number] Can be viewed in source systemMissing Attachment - attachment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 CT neg. [place] placed w/ 900 cc output. Refused to be discharged w/ cath in place. PVR 02/07/24 - 108 ml [facility] ER 05/07/25 - UR. Straight cathed w/ relief and given flomax and discharged. Returned later in the day w/ continued UR, PVR 400 ml and washington placed. Discussed possible factors contributing to UR including constipation and prostate obstruction. Advised on risk of recurrence of retention, but pt adamant about having cath removed today as it makes him extremely anxious. [place] removed IO. rec cysto to eval PARADA The risks and benefits for cystoscopy have been discussed. The risks include bleeding, infection, and irritation of the bladder and urinary channel, among others. The patient, after being informed ofprocedural details and after questions have been answered, wishes to proceed. Full informed consenthas been obtained. Will order Local anesthesia. Increase [...] how potential prostate obstruction affects long-term bladder healthand compliance. We discussed alpha- philip medications to help with urinary symptoms, possible sideeffects. I did advise patient that these medications do not protect the bladder while alleviating some urinary symptoms. In order to assess degree of bladder outlet obstruction and bladder health, discussed further evaluation with cystoscopy. Pt was given tamsulosin in ER, still taking it w/o SEs at this time. 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 -cont tamsulosin, rx sent [...] Medication list documented in medical record 1159F (more content not included)...[facility] CenterComment on above: Result Comment: Electronically Signed By: JOSEPH Allen APRN, [place] X\.will\Date and Time Signed: 05/16/25 12:01 EDTXR foot RT 2Von 41-33-0177BH foot RT 2V [facility] [place] [address] XRay Report Signed Patient: Chai Arnold MR#: [id number] 2 : 1970 Acct:[id number] Age/Sex: 54 / M ADM Date: 03/19/25 Loc: [place] Room: Type: [facility] Attending Dr: Ehsan Avina DO [...] 03/20/2025 8:49 AM Dictation Location: [place] [address] Transcribed By: MAGDIEL 03/20/25 0849 Dictated By: Dante Lisa II, MD 03/20/25 0849 Signed By: 03/20/25 0849[facility] Physician GroupAmphetamine Screen Ql (U)Ordered By: Nirmal Bruno on 05-49-6062Pwkrfookcrbw Ql (U)NegativeNegMarietta Memorial HospitalBarbiturates [Presence] in Urine by Screen methodOrdered By: Nirmal Bruno on 54-60-0264Tybqagiagzii Screen Ql (U)NegativeNegative [facility] HospitalBenzodiazepines Screen Ql (U)Ordered By: Nirmal Bruno on 02-01-2548Effdisxvytllvcs Ql (U)PositiveHighNegativePromedica Flower HospitalBenzoylecgonine [Presence] in Urine by Screen method Ordered By: Nirmal Bruno on 15-07-7815Rupfwmwodjyrnax Screen Ql (U)Negative NegativePromedica Flower HospitalCannabinoids [Presence] in Urine by Screen methodOrdered By: Nirmal Bruno on 31-57-8347Mxzhlyzfyjhz Screen Ql (U) NegativeNegativePromedica Flower HospitalComment on above:These are unconfirmed results and should not be used for legal purposes. Drug Cut-Off Concentration: AMPH 1000 ng/mL MAXIMILIAN 200 ng/mL NORA 200 ng/mL COCM 300 ng/mL OP 300 ng/mL PCP 25 ng/mL THC 20 ng/mLDrug Screen,Urineon 50-52-9942Hftcrbuddrm Screen,UrineNegativeNormalNegativeMelbourne Regional Medical Center Physician GroupComment on above: Performed By: #### URDS #### [place] [address] USABarbiturate Screen,UrineNegativeNormalNegativeMelbourne Regional Medical Center Physician GroupComment on above:Performed By: #### URDS #### [place] [address] USABenzodiazepines Screen,UrinePositiveNormalNegativeMelbourne Regional Medical Center Physician GroupComment on above:Performed By: #### URDS #### [place] [address] USACannabinoid Screen,UrineNegativeNormalNegativeMelbourne Regional Medical Center Physician GroupComment on above:Result Comment: These are unconfirmed results and should not be used for legal purposes. Drug Cut-Off Concentration: AMPH 1000 ng/mL MAXIMILIAN 200 ng/mL NORA 200 ng/mL COCM 300 ng/mL OP 300 ng/mL PCP 25 ng/mL THC 20 ng/mL PERFORMED BY: [place] [address] PATHOLOGIST MOLD RELEASE WORKER BROWN OLIVIER M.D.Performed By: #### URDS #### [place] [address] USACocaine Screen,UrineNegativeNormalNegativeMelbourne Regional Medical Center Physician GroupComment on above:Performed By: #### URDS #### [facility] [address] [place] [address] USAOpiate Screen,UrinePositiveNormalNegativeMelbourne Regional Medical Center Physician [facility] HospitalComment on above:Performed By: #### URDS #### [facility] [address] [place] [address] USAPhencyclidine Screen,UrineNegativeNormalNegativeThe [facility] Physician GroupComment on above:Performed By: #### URDS #### [facility] [address] [place] [address] USAOpiates [Presence] in Urine by Screen methodOrdered By: Nirmal Bruno on 42-92-8569Wadnsyt Screen Ql (U)PositiveHighNegMarietta Memorial HospitalPhencyclidine Screen Ql (U)Ordered By: Nirmal Bruno on 59-00-8595Rzfnbidiaawsz Ql (U)NegativeNegMarietta Memorial Hospital Alanine aminotransferase [Enzymatic activity/volume] in Serum or PlasmaOrdered By: Ehsan Avina on 56-62-5536HCM [Catalytic activity/Vol]15 U/L7-52Prom[facility] Flower HospitalComment on above:Performed By: #### CMP wRFX A1C, CBC #### [facility] [address] [place] [address] USAAlbumin [Mass/volume] in Serum or Plasma by Bromocresol green (BCG) dye binding methoOrdered By: Ehsan Avina on 84-46-0572Qslkjma BCG dye [Mass/Vol]4.2 g/dL3.5-5.7FSelect Medical Specialty Hospital - Cleveland-FairhillAlkaline phosphatase [Enzymatic activity/volume] in Serum or PlasmaOrdered By: Ehsan Avina on 07-54-1636UIJ [Catalytic activity/Vol]116 U/CLrgl49-499UhhoqdxnbPromedica Flower HospitalComment on above:Result Comment: PERFORMED BY: [place] [address] PATHOLOGIST MOLD RELEASE WORKER BROWN OLIVIER M.D.Performed By: #### CMP wRFX A1C, CBC #### [facility] [address] [place] [address] USAAspartate aminotransferase [Enzymatic activity/volume] in Serum or PlasmaOrdered By: Ehsan Avina on 59-71-9931VPM [Catalytic activity/Vol]20 U/Y63-77QwtgskwetPromedica Flower HospitalComment on above: Performed By: #### CMP wRFX A1C, CBC #### [place] [address] USABasophils [#/volume] in Blood by Automated countOrdered By: Ehsan Avina on 27-11-6562Vliijnuha (Bld) [#/Vol]0.1 10*3/uL0.0-0.2 [facility] HospitalComment on above:Result Comment: PERFORMED BY: [place] [address] PATHOLOGIST MOLD RELEASE WORKER BROWN OLIVIER M.D.Performed By: #### CMP wRFX A1C, CBC #### [place] [address] USABasophils/100 leukocytes in Blood by Automated count Ordered By: Ehsan Avina on 53-73-7142Iccgwhxvt/100 WBC (Bld)0.9 %.[facility]lower HospitalComment on above:Performed By: #### CMP wRFX A1C, CBC #### [place] [address] USABilirubin.total [Mass/volume] in Serum or PlasmaOrdered By: Ehsan Avina on 48-13-4189Rgekkysro [Mass/Vol]1.0 mg/dL0.3-1.0Prom[facility] Flower HospitalComment on above:Performed By: #### CMP wRFX A1C, CBC #### [facility] [address] [place] [address] USACMP with reflex to A1Con 43-73-2535Tstwwyn [Mass/Vol]4.2 g/dLNormal3.5-5.7The [facility] Physician GroupComment on above:Performed By: #### CMP wRFX A1C, CBC #### [facility] [address] [place] [address] USAGFR/1.73 sq M.predicted MDRD (S/P/Bld) [Vol rate/Area] mL/min/{1.73_m2}NormalThe [facility] Center Physician GroupComment on above:Performed By: #### CMP wRFX A1C, CBC #### [facility] [address] [place] [address] USACalcium [Mass/volume] in Serum or PlasmaOrdered By: Ehsan Avina on 90-17-4387Izlsgsl [Mass/Vol]9.2 mg/dL8.6-10.3FSelect Medical Specialty Hospital - Cleveland-FairhillComment on above:Performed By: #### CMP wRFX A1C, CBC #### [facility] [address] [place] [address] USACarbon dioxide, total [Moles/volume] in Serum or Plasma Ordered By: Ehsan Avina on 91-89-4279CJ3 [Moles/Vol]29.7 mmol/L21.0-31.0 [facility] HospitalComment on above:Performed By: #### CMP wRFX A1C, CBC #### [facility] [address] [place] [address] USAChloride [Moles/volume] in Serum or PlasmaOrdered By: Ehsan Avina on 84-42-2158Fymowlrh [Moles/Vol]102 mmol/P73-807CeprqekgzPromedica Flower HospitalComment on above:Performed By: #### CMP wRFX A1C, CBC #### [facility] [address] [place] [address] USAComplete Blood Count Auto Diffon 74-42-7095Mcnx Corpuscular HGB Conc34.4 g/cINxhjwh83.5-35.6The [facility] Physician GroupComment on above:Performed By: #### CMP wRFX A1C, CBC #### [facility] [address] [place] [address] USANRBC%0.1 /100{WBC}Normal0-0.5[facility] Physician Group Comment on above:Performed By: #### CMP wRFX A1C, CBC #### [facility] [address] [place] [address] USAWhite Blood Count6.4 [CFU]/mLNormal4.1-10.5The [facility] Physician GroupComment on above:Performed By: #### CMP wRFX A1C, CBC #### [facility] [address] [place] [address] USACreatinine [Mass/volume] in Serum or PlasmaOrdered By: Ehsan Avina on 18-28-0145Zonjcxgpup [Mass/Vol]1.03 mg/dL0.70-1.30Prom[facility] Flower HospitalComment on above:Performed By: #### CMP wRFX A1C, CBC #### [facility] [address] [place] [address] USAECG 12 lead ECGon 40-46-6836QDT 12 lead [facility]GAULT[facility] Main [place] [address] [place] [address] Electrocardiograph Report Signed Patient: Chai Arnold MR#: [id number] 2 : 1970 Acct:[id number] Age/Sex: 54 / M ADM Date: 03/18/25 Loc: Room: Type: [facility] Attending Dr: Ehsan Avina DO Ordering [...] previous ECGs available Confirmed by Eduardo Torrez ([id number]) on 03/18/2025 1:40:16 PM Referred By: Electronically Signed By: Eduardo Torrez Transcribed By: MUS Signed By Eduardo Torrez MD 03/18/25 1340NoNorth Carolina Specialty Hospital Physician GroupEosinophils [#/volume] in Blood by Automated countOrdered By: Ehsan Avina on 43-73-4016Hulfcdajwvm (Bld) [#/Vol]0.9 10*3/uLHigh0.0-0.45Prom[facility]lower HospitalComment on above: Performed By: #### CMP wRFX A1C, CBC #### [facility] [address] [place] [id number] USAEosinophils/100 leukocytes in Blood by Automated count Ordered By: Ehsan Avina on 21-87-6979Tdqfzhtzntj/100 WBC (Bld)14.4 %.[facility] HospitalComment on above:Performed By: #### CMP wRFX A1C, CBC #### [facility] [address] [place] [id number] USAErythrocyte distribution width [Ratio] by Automated count Ordered By: Ehsan Avina on 71-07-6851Hhkehxtawxf distribution width (RBC) [Ratio]12.9 %12.0-14.8Prom[facility] Flower HospitalComment on above: Performed By: #### CMP wRFX A1C, CBC #### [place] [address] USAErythrocytes [#/volume] in Blood by Automated countOrdered By: Ehsan Avina on 97-37-4194DDT (Bld) [#/Vol]4.85 10*6/uL3.90-5.60[facility] HospitalComment on above:Performed By: #### CMP wRFX A1C, CBC #### [place] [id number] USAGlucose [Mass/volume] in Serum or PlasmaOrdered By: Ehsan Avina on 07-54-9676Fbsdlsl [Mass/Vol]88 mg/yL34-850XqrqwvfoqPromedica Flower HospitalComment on above:Performed By: #### CMP wRFX A1C, CBC #### [facility] [address] [place] [address] USAHematocrit [Volume Fraction] of Blood by Automated count Ordered By: Ehsan Avina on 97-63-5163Ayozfqotsv (Bld) [Volume fraction]46.4 % 38.8-50.0Prom[facility] Flower HospitalComment on above:Performed By: #### CMP wRFX A1C, CBC #### [facility] [address] [place], [place] [address] USAHemoglobin [Mass/volume] in BloodOrdered By: Ehsan Avina on 66-33-6497Kiqddutgiw (Bld) [Mass/Vol]16.0 g/dL13.0-17.0Prom[facility] Flower HospitalComment on above:Performed By: #### CMP wRFX A1C, CBC #### [facility] [address] [place] [id number] USALeukocytes [#/volume] corrected for nucleated erythrocytes in Blood by Automated counOrdered By: Ehsan Avina on 98-52-5086OYA corrected for nucl RBC Auto (Bld) [#/Vol]6.4 10*3/uL4.1-10.5FSelect Medical Specialty Hospital - Cleveland-FairhillLeukocytes [#/volume] in Blood by Automated countOrdered By: Ehsan Avina on 47-48-3542JDF (Bld) [#/Vol]6.4 10*3/uL4.1-10.5FSelect Medical Specialty Hospital - Cleveland-FairhillComment on above:Performed By: #### CMP wRFX A1C, CBC #### [facility] [address] [place] [id number] USALymphocytes [#/volume] in Blood by Automated countOrdered By: Ehsan Avina on 29-85-6948Nepoihbvnas (Bld) [#/Vol]1.2 10*3/uL1.00-4.8 [facility] HospitalComment on above:Performed By: #### CMP wRFX A1C, CBC #### [facility] [address] [place] [id number] USALymphocytes/100 leukocytes in Blood by Automated count Ordered By: Ehsan Avina on 02-49-1520Qdzdhansdth/100 WBC (Bld)18.9 %.[facility]lower HospitalComment on above:Performed By: #### CMP wRFX A1C, CBC #### [facility] [address] [place] [address] USAMCH [Entitic mass] by Automated countOrdered By: Ehsan Avina on 79-15-0236CFV (RBC) [Entitic mass]32.9 pg27.5-35.2FSelect Medical Specialty Hospital - Cleveland-FairhillComment on above:Performed By: #### CMP wRFX A1C, CBC #### [facility] [address] [place] [address] [facility] CITYHC Auto (RBC) [Mass/Vol]Ordered By: Ehsan Avina on 82-90-4481ZPNQ (RBC) [Mass/Vol]34.4 g/dL32.5-35.6FSelect Medical Specialty Hospital - Cleveland-FairhillMCV [Entitic volume] by Automated countOrdered By: Ehsan Avina on 82-51-7126UGR (RBC) [Entitic vol]95.7 fL83.5-101Prom[facility] Flower HospitalComment on above:Performed By: #### CMP wRFX A1C, CBC #### [facility] [address] [place] [address] USAMonocytes [#/volume] in Blood by Automated countOrdered By: Ehsan Avina on 80-41-7182Zalqbiwys (Bld) [#/Vol]0.6 10*3/uL0.0-0.8 [facility]lower HospitalComment on above:Performed By: #### CMP wRFX A1C, CBC #### [facility] [address] [place] [address] USAMonocytes/100 leukocytes in Blood by Automated count Ordered By: Ehsan Avina on 83-87-2542Uovidpngr/100 WBC (Bld)9.7 %.[facility]lower HospitalComment on above:Performed By: #### CMP wRFX A1C, CBC #### [facility] [address] [place] [address] USANeutrophils [#/volume] in Blood by Automated countOrdered By: Ehsan Avina on 21-68-8912Kahgxfhbrci (Bld) [#/Vol]3.6 10*3/uL1.8-7.7 [facility] HospitalComment on above:Performed By: #### CMP wRFX A1C, CBC #### [facility] [address] [place], [place] [address] USANeutrophils/100 leukocytes in Blood by Automated count Ordered By: Ehsan Avina on 00-08-4689Aleifbnrrvw/100 WBC (Bld)56.1 %.[facility]lower HospitalComment on above:Performed By: #### CMP wRFX A1C, CBC #### [facility] [address] [place] [address] USANo Panel InformationOrdered By: Ehsan Avina on 82-51-7038Bkgfwxxlh GFR (CKD-EPI)> 60.0 mL/MinPromedica Flower Hospital Pharmacy Creatinine Clearance (ChemN/AFSelect Medical Specialty Hospital - Cleveland-FairhillNucleated erythrocytes [Presence] in Blood by Automated countOrdered By: Ehsan Avina on 51-31-6055Pjvcvwikm RBC Auto Ql (Bld)0.1 /100{WBC}0-0.5FSelect Medical Specialty Hospital - Cleveland-FairhillPlatelet mean volume [Entitic volume] in Blood by Automated count Ordered By: Ehsan Avina on 44-03-5767Tgnkyltf mean volume (Bld) [Entitic vol] 8.1 fL6.6-10.1FSelect Medical Specialty Hospital - Cleveland-FairhillComment on above:Performed By: #### CMP wRFX A1C, CBC #### [facility] [address] [place] [address] USAPlatelets [#/volume] in Blood by Automated countOrdered By: Ehsan Avina on 69-84-1020Vwladunst (Bld) [#/Vol]213 10*3/aQ565-188 [facility]lower HospitalComment on above:Performed By: #### CMP wRFX A1C, CBC #### [facility] [address] [place] [address] USAPotassium [Moles/volume] in Serum or PlasmaOrdered By: Ehsan Avina on 49-33-6898Xagnhqgzl [Moles/Vol]4.1 mmol/L3.5-5.1FSelect Medical Specialty Hospital - Cleveland-FairhillComment on above:Performed By: #### CMP wRFX A1C, CBC #### [place] [id number] USAProtein [Mass/volume] in Serum or PlasmaOrdered By: Ehsan Avina on 06-60-5531Uqplbol [Mass/Vol]6.9 g/dL6.4-8.9Prom[facility] Flower HospitalComment on above:Performed By: #### CMP wRFX A1C, CBC #### [facility] [address] [place] [address] USASerum globulin measurement by calculation (mass/volume) Ordered By: Ehsan Avina on 86-80-1013Wtuqxoce (S) [Mass/Vol]2.7 g/dLPromedica Flower HospitalComment on above:Performed By: #### CMP wRFX A1C, CBC #### [facility] [address] [place] [address] USASerum or plasma albumin/globulin mass ratioOrdered By: Ehsan Avina on 81-13-7885Akvnynk/Globulin [Mass ratio]1.6 {ratio}[facility] Flower HospitalComment on above:Performed By: #### CMP wRFX A1C, CBC #### [facility] [address] [place] [address] USASerum or plasma anion gap determinationOrdered By: Ehsan Avina on 85-81-6073Qetzq gap [Moles/Vol]9.4 mmol/L6.0-15.0Prom[facility] Flower HospitalComment on above:Performed By: #### CMP wRFX A1C, CBC #### [facility] [address] [place], [place] [address] USASodium [Moles/volume] in Serum or PlasmaOrdered By: Ehsan Avina on 45-57-1535Bsdoef [Moles/Vol]137 mmol/H375-077RjbfbqauyPromedica Flower HospitalComment on above:Performed By: #### CMP wRFX A1C, CBC #### [facility] [address] [place] [address] USAUrea nitrogen [Mass/volume] in Serum or PlasmaOrdered By: Ehsan Avina on 69-66-3309Ljhr nitrogen [Mass/Vol]9 mg/dL7-25Promedica Flower HospitalComment on above:Performed By: #### CMP wRFX A1C, CBC #### [facility] [address] [place] [address] USAX-ray reportOrdered By: Garrett Dawson on 14-82-2135Fesvz reportAULTMAN ORRVILLE [facility] [address] [place] [address] XRay Report Signed Patient: Chai Arnold MR#: [id number] : 1970 Acct:[id number] Age/Sex: 54 / M ADM Date: Loc: [facility] Room: Type: REG CLI Attending Dr: Ehsan Avina DO Copies to: Ehsan Avina DO~ Ordering Provider: Ehsan Avina DO Date of Service: 03/13/25 XR/XR foot RT min 3V*: S92.351A - Displaced fracture of fifth metatarsalbone, r... 3 views right foot plain film COMPARISON:02/14/2025 HISTORY: Status post right fifth metatarsal fracture ACUTE FINDINGS: Stable alignment DEGENERATIVE CHANGE: Unremarkable SOFT TISSUE FINDINGS: Unremarkable JOINT EFFUSION: None POSTOP CHANGES: None BONE MINERALIZATION: Adequate XR/XR foot RT min 3V* IMPRESSION: Stable findings Impression dictated by: Garrett Dawson M.D. 03/13/2025 10:25 PM Dictation Location: [facility]- Transcribed By: [facility] 03/13/252224 Dictated By: Garrett Dawson DO 03/13/252220 Signed By: 03/13/252224 [facility] Flower HospitalXR foot RT min 3V*on 30-84-1957NW foot RT min 3V*[facility] [place] [address] XRay Report Signed Patient: Chai Arnold MR#: [id number] 2 : 1970 Acct:[id number] Age/Sex: 54 / M ADM Date: 03/13/25 Loc: [facility] Room: Type: REG CLI Attending Dr: Ehsan [...] Dawson M.D. 03/13/2025 10:25 PM Dictation Location: [facility]--20 Transcribed By: [facility] 03/13/252224 Dictated By: Garrett Dawson DO 03/13/252220 Signed By: 03/13/252224[facility] Physician GroupCNPNon [phone] ([facility]) CHAI ARNOLD ([id number]) 1970 M Date Time Provider Department 03/07/25 LYDIA DRAKE During your visit today, we recorded the following information about you: Sterling Gonzalez 03/07/2025 1:33 PM Signed Chai Arnold - [phone] Patient contacted the office regarding the baclofen [...] (None) Encounter Status:Closed by STERLING GONZALEZ on 03/07/25NoA[facility] ANORECTAL MANOMETRYon [phone] NAME: Chai Arnold PATIENT IDENTITY VERIFICATION COMPLETED USING TWO (2) IDENTIFIERS: Name and Date of confirmedby patient verbally. Referred by: Violette Maurer APRN.CNP Reason for testing: constipation Ileoanal pouch: No SENSITIVE EXAMINATION CONSENT: The sensitive examination was discussed with the Patient or Patient's Authorized Communications Operator. Asapplicable, any other physician, advance practice provider, medical student, or other health professional student that will be observing or involved in the sensitive examination for educational or training purposes was discussed with the Patient or Authorized Communications Operator. The Patient or Authorized Communications Operator has agreed to proceed with the sensitive examination. 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 I agree with the impression as written above. Aparna Guerra MD Colon & Rectal Surgery PROVATIONADULT [place] ANORECTAL MANOMETRYOrdered By: Aparna Guerra on 02-28-2025 [facility] Work Phone: Radiology Study observation (narrative)[facility] Work Phone: CNNURSEon [phone] Visit ([facility]) CHAI ARNOLD ([id number]) 1970 M Date Time Provider Department 02/28/25 12:30 PM SAHIL BERGERON During your visit today, we recorded the following information about you: Referring Provider: VIOLETTE MAURER [[id number]] Allergies As of Date: 02/28/2025 (No Known Allergies) Date Reviewed: 02/28/2025 Reviewed by: Macey Meek OCCA - Fully Assessed Reason for Visit: Manometry [780] Visit Diagnosis:Pelvic floor dysfunction [M62.89] Order(s):[place]ULT [place] ANORECTAL MANOMETRY [3091314] Order #: [id number] Prescriptions as of 02/28/2025 - ALPRAZolam (XANAX) [...] (None) Encounter Status:Closed by SAHIL BERGERON on 02/28/25[facility] [id number] Visit (KENIA) CHAI ARNOLD ([id number]) 1970 M Date Time Provider Department 02/28/25 [...] a compounded preparation from a pharmacy in [place], and previously used hydrocortisone. He has not [...] normal and retroflexed positi (more content not included)...NormalWexner Medical CenterTORY PHYSICALon 29-47-1105GYISTGM PHYSICALHNO ID: [id number] Author: LYDIA DRAKE PA-C Service: ? Author Type: Physician Insurance Service Representative Type: H&P Filed: 02/28/2025 13:41 Note Text: [...] a compounded preparation from a pharmacy in [place], and previously used hydrocortisone. He has not [...] on file. No pa (more content not included)...NormalOhiohealth Pickerington Methodist HospitalCNPNon [phone] ([facility]) CHAI ARNOLD ([id number]) 1970 M Date Time Provider Department 02/11/25 ASHLEY HAYWARD [facility] During your visit today, we recorded the [...] (None) Encounter Status:Closed by CHELLE CHRISTIANSON on 02/11/25[facility] CenterAmbulatory Visit Summaryon 15-49-4327Fqmmuyqwpo Visit SummaryAmbulatory Visit Summary CHAI ARNOLD :1970 Visit Date:01/24/2025 [...] EDT With: Caitlyn CHAVIS, Vivian Lance Where: [facility] [address] [facility] [address] [place] [phone]- Medications What How Much When Why Instructions New plecanatide (Trulance 3 mg oral tablet) 1 Tablets By Mouth Every day Constipation Constipation by outlet dysfunction Pelvic floor dysfunction Bloating Stress-related physiological response affecting medical condition Drug dependence Refills: 4 Pickup at [facility] Unchanged amlodipine (amLODIPine 5 mg Tab) Contact prescribing physician if questions or concerns Unchanged anastrozole By Mouth Every day Contact prescribing physician if questions or concerns Unchanged clonidine (cloNIDine 0.1 mg tab) Contact prescribing physician if questions or concerns Unchanged metoprolol (Lopressor 25 mg oral tablet) 1 Tablets By Mouth Every day Contact prescribingphysician if questions or concerns Unchanged nitrofurantoin (nitrofurantoin macrocrystals-monohydrate 100 mg Cap) Contact prescribing physician if questions or concerns Unchanged Patient Specific Meds (Enclomifene) Contact prescribing physician if questions or concerns Unchanged polyethylene glycol 3350 (Miralax 3350 17 gram packet) 17 Gram By Mouth Every day Contactprescribing physician if questions or concerns Unchanged senna (Senna 8.6 mg oral tablet) 2 Tablets By Mouth Once a day (at bedtime) as needed forfor constipation Contact prescribing physician if questions or concerns Unchanged testosterone Contact prescribing physician if questions or concerns Pharmacy Information [facility]: [address] [place], [place] [phone] Allergies No Known Medication Allergies Problems Ongoing [...] you for choosing us for your care. [facility]/Clinic Noteon 88-69-0133Jtqnbobuzzvjclbs Office/Clinic NoteGastroenterology Office/Clinic Note Chief Complaint constipation- We referred patient to [facility] states that he called [facility] back and they refused to see him. HPI Staff Established patient is a(n) 54 year old male who presents today for a(n) 1 month follow-up. c/o constipation Pt wants to discuss referral to GI Psychology. He states he received a call from [facility] but he doesn'tthink they are going to do the testing [...] benzos for 15 years in the past. Heis having issues with his bowel movements which is likely secondary to pelvic floor dysfunction from stress. Patient was seen by psychiatry in the past and this did not help him. Will refer to GI psychology at [facility] Advised to use squatty potty and massage [...] days could not see a provider at [facility] Review of Systems PHQ Score Initial [...] Daily, # 30 tab(s), Refills(s) 4, Pharmacy: [facility], 173, cm, 01/24/25 10:35:00 EDT, Height/Length Dosing, 86.3, kg, 01/24/25 10:35:00 EDT, Weight Dosing 2. 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 Pelvic floor dysfunction (M62.89: Other specified disorders of muscle) Ordered: plecanatide, 3 mg = 1 tab(s), Oral, Daily, # 30 tab(s), Refills(s) 4, Pharmacy: [facility], 173, cm, 01/24/25 10:35:00 EDT, Height/Length Dosing, 86.3, kg, 01/24/25 10:35:00 EDT, Weight Dosing 4. Bloating (R14.0: Abdominal distension (gaseous)) Ordered: plecanatide, 3 mg = 1 tab(s), Oral, Daily, # 30 tab(s), Refills(s) 4, Pharmacy: [facility], 173, cm, 01/24/25 10:35:00 EDT, Height/Length Dosing, 86.3, kg, 01/24/25 10:35:00 EDT, Weight Dosing 5. Stress-related physiological response affecting medical condition (F54: Psychological and behavioral factors associated with disorders or diseases classified elsewhere) Ordered: (more content not included)...[facility] CenterComment on above:Result Comment: Electronically Signed By: Caitlyn CHAVIS, Vivian Lance\.br\Date and Time Signed: 01/24/2510:46 EDTAmbulatory Visit Summaryon 70-11-6106Uudrdpfgrq Visit SummaryAmbulatory Visit Summary CHAI ARNOLD :1970 Visit Date:01/09/2025 [...] Someone Will Contact You Regarding These Appointments [facility] [place] Ambulatory Referral, Gastroenterology, 01/09/25 13:16:00 EDT, [...] 1 Tablets By Mouth Every day Contact prescribingphysician if questions or concerns Unchanged nitrofurantoin (nitrofurantoin [...] you for choosing us for your care. [facility] CenterGastro[facility] Office/Clinic Noteon 60-60-6482Dopqwgolpzurpykq Office/Clinic NoteGastroenterology Office/Clinic Note Chief Complaint Alternating bowels, bloating [...] benzos for 15 years in the past. Heis having issues with his bowel movements which is likely secondary to pelvic floor dysfunction from stress. Patient was seen by psychiatry in the past and this did not help him. Will refer to GI psychology at [facility] Advised to use squatty potty and [...] BNT-[id number] vax 11/18/2020 Recorded (more content not included)...[facility] CenterComment on above: Result Comment: Electronically Signed By: Caitlyn CHAVIS, Vivian Lance\.br\Date and Time Signed: 01/09/2513:17 EDTCOMPLETE BLOOD COUNTon 66-35-7027Kvbpkpjeila distribution width (RBC) [Ratio]13.5 %Jvwyue31.5-15.0[facility] Comment on above:Performed By: #### CBC, CMP, 2498-4, 96428-4, 2857-1, TSHR #### [facility] ([id number]) [address], [address] [place], [place] [address]Ymkotprixo (Bld) [Volume fraction]48.2 %Nxtnfr92-38MqxKxvxmkOhioHealth Riverside Methodist HospitalComment on above:Performed By: #### CBC, CMP, 2498-4, 47157-0, 2857-1, TSHR #### [facility] ([id number]) [address], [address] [place], [place] [address]Cvuilylqbo (Bld) [Mass/Vol]16.1 g/wDXavdzv42.0-17.0[facility] HospitalComment on above:Performed By: #### CBC, CMP, 2498-4, 96571-2, 2857-1, TSHR #### [facility] ([id number]) [address], [address] [place], [place] [address]FNI (RBC) [Entitic mass]31.9 cdDpeqej22-95AdpNxdnpj [facility] HospitalComment on above:Performed By: #### CBC, CMP, 2498-4, 92225-1, 2857-1, TSHR #### [facility] ([id number]) [address], [address] [place], [place] [address]YBPH (RBC) [Mass/Vol]33.4 g/eCIfxbjh73-65ZzoYctslw [facility] HospitalComment on above:Performed By: #### CBC, CMP, 2498-4, 16316-3, 2857-1, TSHR #### [facility] ([id number]) [address], [address] [place], [place] [address]GDA (RBC) [Entitic vol]96 vMWyhzbr96-344HceHgthgm [facility] HospitalComment on above:Performed By: #### CBC, CMP, 2498-4, 80731-2, 2857-1, TSHR #### [facility] ([id number]) [address], [address] [place], [place] [address]Vvgadyqd mean volume (Bld) [Entitic vol]9.6 fLNormal7-12 [facility] HospitalComment on above:Performed By: #### CBC, CMP, 2498-4, 69510-4, 2857-1, TSHR #### [facility] ([id number]) [address], [address] [place], [place] [address]Dyolzzgii (Bld) [#/Vol]184 10*3/fBDrvmop499-540LzaSzvvde [facility] HospitalComment on above:Performed By: #### CBC, CMP, 2498-4, 28522-7, 2857-1, TSHR #### [facility] ([id number]) [address], [address] [place], [place] [address]UNL COUNT5.04 X10E12/LNormal4.10-5.70Pro[facility] Hospital[facility] Comment on above:Performed By: #### CBC, CMP, 2498-4, 68545-0, 2857-1, TSHR #### [facility] ([id number]) [address], [address] [place], [place] [address]LUD (Bld) [#/Vol]5.2 10*3/uLNormal4.0-11.0[facility] HospitalComment on above:Performed By: #### CBC, CMP, 2498-4, 84564-0, 2857-1, TSHR #### [facility] ([id number]) [address], [address] [place], [place] [address]KOUOGILOSAHAI METABOLIC PANELon 19-10-0713Fjpxkfv [Mass/Vol]4.5 g/dLNormal3.2-5.3[facility] HospitalComment on above:Performed By: #### CBC, CMP, 2498-4, 46599-7, 2857-1, TSHR #### [facility] ([id number]) [address], [address] [place], [place] [address]AFP [Catalytic activity/Vol]101 U/GFwausy68-136KctImurii [facility] HospitalComment on above:Performed By: #### CBC, CMP, 2498-4, 54797-7, 2857-1, TSHR #### [facility] ([id number]) [address], [address] [place], [place] [address]GIH [Catalytic activity/Vol]38 U/LNormal0-40[facility] HospitalComment on above:Performed By: #### CBC, CMP, 2498-4, 41173-9, 2857-1, TSHR #### [facility] ([id number]) [address], [address] [place], [place] [address]Oscuo gap [Moles/Vol]11 mmol/LNormal5-15[facility] HospitalComment on above:Performed By: #### CBC, CMP, 2498-4, 34125-8, 2857-1, TSHR #### [facility] ([id number]) [address], [address] [place], [place] [address]LAV [Catalytic activity/Vol]28 U/LNormal0-41[facility] HospitalComment on above:Performed By: #### CBC, CMP, 2498-4, 05054-0, 2857-1, TSHR #### [facility] ([id number]) [address], [address] [place], [place] [address]Bzvuewstu [Mass/Vol]0.6 mg/dLNormal0.3-1.2ProMedThe [facility] HospitalComment on above:Performed By: #### CBC, CMP, 2498-4, 14678-5, 2857-1, TSHR #### [facility] ([id number]) [address], [address] [place], [place] [address]Lzvkcab [Mass/Vol]9.6 mg/dLNormal8.5-10.5ProMedst. vincent's blount [facility]ett HospitalComment on above:Performed By: #### CBC, CMP, 2498-4, 07076-0, 2857-1, TSHR #### [facility] ([id number]) [address], [address] [place], [place] [address]Agoqqzkd [Moles/Vol]105 mmol/EBktgdo91-501DqtHzndew [facility] HospitalComment on above:Performed By: #### CBC, CMP, 2498-4, 14725-2, 2857-1, TSHR #### [facility] ([id number]) [address] [place], [place] [address]JG5 [Moles/Vol]26 mmol/FWavcki95-55MuaLwqxolMercy Health St. [facility] Comment on above:Performed By: #### ALEXANDRIA GARCIA, 2498-4, 92095-5, 2857-1, TSHR #### [facility] ([id number]) [address] [place], [place] [address]Rcbzjnljnt [Mass/Vol]0.94 mg/dLNormal0.60-1.30ProKettering Memorial HospitalComment on above:Result Comment: METHOD TRACEABLE TO IDMS STANDARD Performed By: #### ALEXANDRIA GARCIA, 2498-4, 72040-9, 2857-1, TSHR #### [facility] ([id number]) [address] [address]bVIY (CKD-EPI) NON-RACE DEPENDENT>90Normal>59ProKettering Memorial HospitalComment on above:Result Comment: Reported eGFR is based on the CKD-EPI 1 equation that does not use a race coefficient.Performed By: #### JOSE, ALEXANDRIA, 2498-4, 82863-9, 2857-1, TSHR #### [facility] ([id number]) [address] [address]Qkylzfd [Mass/Vol]86 mg/tNAkhgat99-70LzvIxjjfbOhioHealth [facility]ide Methodist Hospital Comment on above:Performed By: #### JOSE, CMP, 2498-4, 48062-9, 2857-1, TSHR #### [facility] ([id number]) [address] [place], [place] [address]Pvvvtknzj [Moles/Vol]4.2 mmol/LNormal3.5-5.0ProK[facility]tering Memorial HospitalComment on above:Performed By: #### JOSE, CMP, 2498-4, 68078-1, 2857-1, TSHR #### [facility] ([id number]) [address], [place] [address]Nkhhzkm [Mass/Vol]7.4 g/dLNormal6.0-8.0Pro[facility] Comment on above:Performed By: #### CBC, CMP, 2498-4, 17506-2, 2857-1, TSHR #### [facility] ([id number]) [address], [address] [place], [place] [address]Ukecwy [Moles/Vol]142 mmol/DUaqcaz309-951AwrVwyvwh [facility] HospitalComment on above:Performed By: #### CBC, CMP, 2498-4, 29555-2, 2857-1, TSHR #### [facility] ([id number]) [address], [address] [place], [place] [address]Wtfh nitrogen [Mass/Vol]13 mg/dLNormal5-23Pro[facility] HospitalComment on above:Performed By: #### JOSE, CMP, 2498-4, 90540-7, 2857-1, TSHR #### [facility] ([id number]) [address], [address] [place], [place] [address]GPDSqt 55-15-5644Lbwa [Mass/Vol]184 ug/jZNxkmsq16-578YfaByplfa [facility] HospitalComment on above:Performed By: #### CBC, CMP, 2498-4, 72379-9, 2857-1, TSHR #### [facility] ([id number]) [address], [address] [place], [place] [address]Idggu 1996 panelon 71-97-4440Frkcjuwxdok [Mass/Vol]183 mg/dL Onphzr111-661KluHvpnhi [facility] HospitalComment on above:Performed By: #### CBC, CMP, 2498-4, 81593-1, 2857-1, TSHR #### [facility] ([id number]) [address], [address] [place], [place] [address]Cgocpesfxyp in HDL [Mass/Vol]38 mg/dLLow>39Pro[facility] HospitalComment on above:Result Comment: HDL <40 mg/dL - High Risk HDL > or = 40mg/dL- Desirable HDL >60 mg/dL - Negative Risk Performed By: #### JOSE, CMP, 2498- 4, 88167-0, 2857-1, TSHR #### [facility] ([id number]) [address], [address] [place], [place] [address]Wqkbirlpnpo in LDL [Mass/Vol]121 mg/dLNormal<130ProK[facility]tering Memorial HospitalComment on above:Result Comment: LDL <100 mg/dL - Desirable LDL >160 mg/dL - High Risk Performed By: #### JOSE, CMP, 2498- 4, 05527-4, 2857-1, TSHR #### [facility] ([id number]) [address], [address] [place], [place] [address]Ircowitwayq in VLDL [Mass/Vol]24 mg/dLNormal0-30Pro[facility] Memorial HospitalComment on above:Performed By: #### JOSE, CMP, 2498-4, 58027-0, 2857-1, TSHR #### [facility] ([id number]) [address], [address] [place], [place] [address]TRUGEWQWYVC:HDL4.5Osrgwo6.0-5.0ProK[facility]tering Memorial HospitalComment on above:Performed By: #### JOSE, CMP, 2498-4, 25613-8, 2857-1, TSHR #### [facility] ([id number]) [address], [address] [place], [place] [address]Yfqwiapcustg [Mass/Vol]119 mg/dFNktgjk75-243MtsKgpsgk [facility] HospitalComment on above:Performed By: #### CBC, CMP, 2498-4, 65841-5, 2857-1, TSHR #### [facility] ([id number]) [address] [address]Asjzuaup specific Ag [Mass/Vol]on 73-65-5592EQZ SCREEN0.57 ng/mL Normal0.00-4.00ProK[facility]tering Memorial HospitalComment on above:Result Comment: The method used for this test is Graciela Shashi DXI chemiluminescent immunoassay. Values obtained by different assay methods cannot be used interchangeably.Performed By: #### CBC, CMP, 2498-4, 07955-2, 2857-1, TSHR #### [facility] ([id number]) [address] [address]FNS WITH REFLEXon 49-03-9102NQI3.34 uIU/mLNormal0.49-4.67 [facility]ic[facility]odi HospitalComment on above:Performed By: #### CBC, CMP, 2498-4, 57049-1, 2857-1, TSHR #### [facility] ([id number]) [address] [address]PJFEOABZ BLOOD COUNTon 99-59-4974Qwwmqzjkvtl distribution width (RBC) [Ratio]13.4 %Gxfgah52.5-15.0Pro[facility] HospitalComment on above: Performed By: #### CBC, CMP, 2857-1, TSHR #### [facility] ([id number]) [address] [address]Gqkurknrqv (Bld) [Volume fraction]47.4 %Cpftsz98-75WjaRdoawwKettering Memorial HospitalComment on above:Performed By: #### CBC, CMP, 2857-1, TSHR #### [facility] ([id number]) [address], [place] [address]Yedcrlydvv (Bld) [Mass/Vol]16.4 g/yAShstsf91.0-17.0[facility] HospitalComment on above:Performed By: #### CBC, CMP, 2857-1, TSHR #### [facility] ([id number]) [address], [address] [place] [address]NWQ (RBC) [Entitic mass]32.4 rsBkihkl47-93XbkQpdvnh [facility] HospitalComment on above:Performed By: #### CBC, CMP, 2857-1, TSHR #### [facility] ([id number]) [address], [address] [place], [place] [address]ICMO (RBC) [Mass/Vol]34.6 g/dVFfjhlh49-98BluGijizn [facility] HospitalComment on above:Performed By: #### CBC, CMP, 2857-1, TSHR #### [facility] ([id number]) [address], [address] [place], [place] [address]HPY (RBC) [Entitic vol]94 vJYkwfkn68-654LguPeeloq [facility] HospitalComment on above:Performed By: #### CBC, CMP, 2857-1, TSHR #### [facility] ([id number]) [address], [address] [place], [place] [address]Lqzzxlzp mean volume (Bld) [Entitic vol]9.4 fLNormal7-12 [facility] HospitalComment on above:Performed By: #### CBC, CMP, 2857-1, TSHR #### [facility] ([id number]) [address], [address] [place], [place] [address]Htxrudnsk (Bld) [#/Vol]235 10*3/aAThxvar410-081McrLycjvv [facility] HospitalComment on above:Performed By: #### CBC, CMP, 2857-1, TSHR #### [facility] ([id number]) [address], [address] [place], [place] [address]PTY COUNT5.06 X10E12/LNormal4.10-5.70[facility] Comment on above:Performed By: #### CBC, CMP, 2857-1, TSHR #### [facility] ([id number]) [address], [address] [place], [place] [address]ZHQ (Bld) [#/Vol]7.0 10*3/uLNormal4.0-11.0[facility] HospitalComment on above:Performed By: #### JOSE, CMP, 2857-1, TSHR #### [facility] ([id number]) [address], [address] [place], [place] [address]UEPAMJPYPYLYU METABOLIC PANELon 75-47-9925Uscqcqn [Mass/Vol]4.5 g/dLNormal3.2-5.3[facility] HospitalComment on above:Performed By: #### JOSE, CMP, 2857-1, TSHR #### [facility] ([id number]) [address], [address] [place], [place] [address]HTM [Catalytic activity/Vol]133 U/GYeeo85-217AznHmwpzo [facility] HospitalComment on above:Performed By: #### JOSE, CMP, 2857-1, TSHR #### [facility] ([id number]) [address], [address] [place], [place] [address]TJK [Catalytic activity/Vol]20 U/LNormal0-40[facility] HospitalComment on above:Performed By: #### CBC, CMP, 2857-1, TSHR #### [facility] ([id number]) [address], [address] [place], [place] [address]Uarcw gap [Moles/Vol]10 mmol/LNormal5-15[facility] HospitalComment on above:Performed By: #### CBC, CMP, 2857-1, TSHR #### [facility] ([id number]) [address], [address] [place], [place] [address]BJZ [Catalytic activity/Vol]26 U/LNormal0-41Pro[facility] HospitalComment on above:Performed By: #### CBC, CMP, 2857-1, TSHR #### [facility] ([id number]) [address], [address] [place], [place] [address]Thnxjyzyy [Mass/Vol]0.8 mg/dLNormal0.3-1.2ProMedThe [facility] HospitalComment on above:Performed By: #### JOSE, CMP, 2857-1, TSHR #### [facility] ([id number]) [address], [address] [place], [place] [address]Dgmjkkv [Mass/Vol]9.6 mg/dLNormal8.5-10.5PMercy Health [facility]rb[facility] HospitalComment on above:Performed By: #### JOSE, CMP, 2857-1, TSHR #### [facility] ([id number]) [address], [address] [place], [place] [address]Jvqjahfk [Moles/Vol]103 mmol/VOqkrdi72-966PuoKnjmao [facility] HospitalComment on above:Performed By: #### JOSE, CMP, 2857-1, TSHR #### [facility] ([id number]) [address], [address] [place], [place] [address]OK9 [Moles/Vol]27 mmol/WPcidiy97-10NynCzkzoa [facility] Comment on above:Performed By: #### OJSE, CMP, 2857-1, TSHR #### [facility] ([id number]) [address], [address] [place], [place] [address]Bqwmfkexcr [Mass/Vol]1.05 mg/dLNormal0.60-1.30Pro[facility] HospitalComment on above:Result Comment: METHOD TRACEABLE TO IDMS STANDARD Performed By: #### CBC, CMP, 2857-1, TSHR #### [facility] ([id number]) [address] [place], [place] [address]JYA/1.73 sq M.predicted among non-blacks MDRD (S/P/Bld) [Vol rate/Area]83 mL/min/{1.73_m2}Normal>59ProK[facility]tering Memorial HospitalComment on above: Result Comment: Reported eGFR is based on the CKD-EPI 2020 equation that does not use a race coefficient.Performed By: #### ALEXANDRIA GARCIA, 2857-1, TSHR #### [facility] ([id number]) [address] [address]Dvzxuwj [Mass/Vol]87 mg/cHFobedl58-83NzoJabglhOhioHealth Riverside Methodist Hospital Comment on above:Performed By: #### ALEXANDRIA GARCIA, 2857-1, TSHR #### [facility] ([id number]) [address] [address]Fsnlpkhbg [Moles/Vol]3.9 mmol/LNormal3.5-5.0ProK[facility]tering Memorial HospitalComment on above:Performed By: #### ALEXANDRIA GARCIA, 2857-1, TSHR #### [facility] ([id number]) [address] [address]Wqzuhgl [Mass/Vol]7.3 g/dLNormal6.0-8.0[facility] Comment on above:Performed By: #### ALEXANDRIA GARCIA, 2857-1, TSHR #### [facility] ([id number]) [address] [place], [place] [address]Fkdbhr [Moles/Vol]140 mmol/YOdaibr330-897WwhJoottk [facility] HospitalComment on above:Performed By: #### ALEXANDRIA GARCIA, 2857-1, TSHR #### [facility] ([id number]) [address] [address] [place], [place] [address]Ovsw nitrogen [Mass/Vol]6 mg/dLNormal5-23ProKettering Memorial HospitalComment on above:Performed By: #### CBC, CMP, 2857-1, TSHR #### [facility] ([id number]) [address] [place], [place] [address]Wmvrzdtf specific Ag [Mass/Vol]on 67-70-0829CDM SCREEN0.71 ng/mL Normal0.00-4.00ProKettering Memorial HospitalComment on above:Result Comment: The method used for this test is Graciela M Lite Solution DXI chemiluminescent immunoassay. Values obtained by different assay methods cannot be used interchangeably.Performed By: #### CBC, CMP, 2857-1, TSHR #### [facility] ([id number]) [address] [place], [place] [address]KPM WITH REFLEXon 72-81-4620VKI9.29 uIU/mLNormal0.49-4.67 [facility] HospitalComment on above:Performed By: #### CBC, CMP, 2857-1, TSHR #### [facility] ([id number]) [address] [place], [place] [address]Jlotrjhf [Presence] in Urine by AutomatedOrdered By: Nish Davidson on 31-33-0817Nrjiopww Auto Ql (U)None seen [HPF]None SeenPromedica Flower HospitalBasophils Auto (Bld) [#/Vol]Ordered By: James De on 03-03-2024 Basophils (Bld) [#/Vol]0.0 10*3/uL0.0-0.2FSelect Medical Specialty Hospital [facility] Basophils/100 WBC Auto (Bld)Ordered By: James De on 82-31-5247Wjrnpdywo/100 WBC (Bld)0.4 %.Promedica Flower HospitalBilirubin Test strip Ql (U) Ordered By: Nish Davidson on 58-28-9323Zlhtivejc Ql (U)NegativeNegativePromedica Flower HospitalCalcium [Mass/volume] in Serum or PlasmaOrdered By: James De on 82-91-8966Yuvbpuv [Mass/Vol]9.5 mg/dL8.6-10.3FSelect Medical Specialty Hospital - Cleveland-FairhillCarbon dioxide, total [Moles/volume] in Serum or PlasmaOrdered By: James De on 95-01-0061SM9 [Moles/Vol]25.3 mmol/L21.0-31.0Promedica Flower HospitalChloride [Moles/volume] in Serum or PlasmaOrdered By: James De on 23-43-0197Atrjqajk [Moles/Vol]102 mmol/Y17-908JeecypvclPromedica Flower HospitalColor Auto (U)Ordered By: Nish Davidson on 98-37-0608Hejmx (U)Yellow YellowPromedica Flower HospitalCreatinine [Mass/volume] in Serum or PlasmaOrdered By: James De on 12-96-9053Zcfcljjxop [Mass/Vol]1.18 mg/dL 0.70-1.30Promedica Flower HospitalEosinophils Auto (Bld) [#/Vol]Ordered By: James De on 31-73-3146Spesiluqknz (Bld) [#/Vol]0.2 10*3/uL0.0-0.45 Prom[facility] Flower HospitalEosinophils/100 WBC Auto (Bld)Ordered By: James De on 08-37-6789Lhsbprkdids/100 WBC (Bld)2.6 %.[facility] HospitalEpithelial cells.squamous [#/area] in Urine sediment by Automated countOrdered By: Nish Davidson on 54-89-9430Qnhxzhbnpk cells.squamous Auto (Urine sed) [#/Area]1-2 [HPF]0-2FSelect Medical Specialty Hospital - Cleveland-FairhillErythrocyte distribution width Auto (RBC) [Ratio]Ordered By: James De on 03-03-2024 Erythrocyte distribution width (RBC) [Ratio]12.6 %12.0-14.8[facility] HospitalErythrocytes [#/area] in Urine sediment by Automated countOrdered By: Nish Davidson on 92-42-8876PAY Auto (Urine sed) [#/Area]None seen [HPF]0-4 [facility] HospitalGlucose [Mass/volume] in Serum or PlasmaOrdered By: James De on 69-90-7124Gystkmd [Mass/Vol]83 mg/zI14-069TbfmmvnvfPromedica Flower HospitalComment on above:ADA recommended reference rangeRandom Glucose Reference Range is dependent on time and content of last meal. Glucose of more than 200 mg/dL in a nonstressed, ambulatory subject supports the diagnosisof Diabetes Mellitus.Glucose [Mass/volume] in Urine by Test strip Ordered By: Nish Davidson on 70-69-0073Fyuvmab Test strip (U) [Mass/Vol]Normal mg/dLNormalPromedica Flower HospitalHematocrit Auto (Bld) [Volume fraction]Ordered By: James De on 70-99-0998Alrcjtuujr (Bld) [Volume fraction]52.6 %High38.8-50.0[facility] HospitalHemoglobin Test strip Ql (U)Ordered By: Nish Davidson on 93-94-1258Xkokkqipol Ql (U)Negative NegativePromedica Flower HospitalHemoglobin [Mass/volume] in Blood Ordered By: James De on 45-74-2526Yqvsdxcehv (Bld) [Mass/Vol]18.5 g/dLHigh 13.0-17.0[facility] HospitalHyaline casts [#/area] in Urine sediment by Automated countOrdered By: Nish Davidson on 46-95-1962Lunypld casts Auto (Urine sed) [#/Area]0-8 [LPF]0-8[facility] HospitalKetones Test strip Ql (U)Ordered By: Nish Davidson on 82-85-3129Buklpim Ql (U)2+High NegativePromedica Flower HospitalLeukocyte esterase [Presence] in Urine by Test stripOrdered By: Nish Davidson on 02-61-9016Jsivqiypp esterase Test strip Ql (U)NegativeNegativePromedica Flower HospitalLeukocytes [#/area] in Urine sediment by Automated countOrdered By: Nish Davidson on 98-14-3216NIX Auto (Urine sed) [#/Area]1-2 [HPF]0-4FSelect Medical Specialty Hospital - Cleveland-FairhillLeukocytes [#/volume] corrected for nucleated erythrocytes in Blood by Automated coun Ordered By: James De on 69-50-8543GFV corrected for nucl RBC Auto (Bld) [#/Vol]9.0 10*3/uL4.1-10.5FSelect Medical Specialty Hospital - Cleveland-FairhillLymphocytes Auto (Bld) [#/Vol]Ordered By: James De on 26-28-1761Nalsqqjcuqz (Bld) [#/Vol]1.2 10*3/uL1.00-4.8[facility] HospitalLymphocytes/100 WBC Auto (Bld) Ordered By: James De on 64-84-0924Rnbmnlqzglb/100 WBC (Bld)13.4 %.[facility]edoH Auto (RBC) [Entitic mass]Ordered By: James De on 22-71-9330TEM (RBC) [Entitic mass]32.8 pg27.5-35.2FSelect Medical Specialty Hospital - Cleveland-FairhillMCHC Auto (RBC) [Mass/Vol]Ordered By: James De on 14-80-2269GHMT (RBC) [Mass/Vol]35.1 g/dL32.5-35.6FSelect Medical Specialty Hospital - Cleveland-FairhillMCV Auto (RBC) [Entitic vol]Ordered By: James De on 34-47-2887GEJ (RBC) [Entitic vol]93.4 fL83.5-101[facility] HospitalMonocyte distribution width [Entitic volume] in Blood by AutomatedOrdered By: James De on 50-60-7987Khtxcdcr distribution width Auto (Bld) [Entitic vol]17.08 %0.00-20.00[facility] HospitalMonocytes Auto (Bld) [#/Vol]Ordered By: James De on 03-03-2024 Monocytes (Bld) [#/Vol]0.8 10*3/uL0.0-0.8[facility] Monocytes/100 WBC Auto (Bld)Ordered By: James De on 48-38-1143Oomtlrudw/100 WBC (Bld)8.7 %.[facility] HospitalMucus [Presence] in Urine by AutomatedOrdered By: Nish Davidson on 91-82-9478Emwny Auto Ql (U)1+ [LPF]Abnormal [facility] HospitalNeutrophils Auto (Bld) [#/Vol]Ordered By: James De on 82-48-9654Ttmakwhskbo (Bld) [#/Vol]6.7 10*3/uL1.8-7.7FSelect Medical Specialty Hospital - Cleveland-FairhillNeutrophils/100 WBC Auto (Bld)Ordered By: James De on 93-15-1392Mhwdcqninub/100 WBC (Bld)74.9 %.[facility] Nitrite Test strip Ql (U)Ordered By: Nish Davidson on 86-77-0141Otcupro Ql (U) NegativeNegativePromedica Flower HospitalNo Panel InformationOrdered By: James De on 67-74-0053Idmjpnbcl GFR (CKD-EPI)> 60.0 mL/MinPromedica Flower HospitalPharmacy Creatinine Clearance (Chem68.43[facility] HospitalNucleated erythrocytes [Presence] in Blood by Automated countOrdered By: James De on 98-30-0824Eyqpverlx RBC Auto Ql (Bld)0.4 /100{WBC}0-0.5FSelect Medical Specialty Hospital - Cleveland-FairhillPlatelet adequacy [Presence] in Blood by Light microscopyOrdered By: James De on 00-89-0029Ulubhroeh LM Ql (Bld)NormalNoHocking Valley Community HospitalPlatelet mean volume Auto (Bld) [Entitic vol]Ordered By: James De on 63-79-8589Udlutjzg mean volume (Bld) [Entitic vol]8.4 fL6.6-10.1FSelect Medical Specialty Hospital - Cleveland-FairhillPlatelet morphology finding [Identifier] in BloodOrdered By: James De on 03-03-2024 Platelet morphology finding Nom (Bld)NormalNormTrumbull Regional Medical CenterPlatelets Auto (Bld) [#/Vol]Ordered By: James De on 03-03-2024 Platelets (Bld) [#/Vol]207 10*3/cP312-156SqamvffyhPromedica Flower Hospital Potassium [Moles/volume] in Serum or PlasmaOrdered By: James De on 67-90-6566Pioorowhn [Moles/Vol]3.7 mmol/L3.5-5.1FSelect Medical Specialty Hospital - Cleveland-FairhillProtein Test strip (U) [Mass/Vol]Ordered By: Nish Davidson on 03-03-2024 Protein (U) [Mass/Vol]Trace mg/dLHighNegativePromedica Flower Hospital RBC Auto (Bld) [#/Vol]Ordered By: James De on 80-52-3346MIJ (Bld) [#/Vol] 5.64 10*6/uLHigh3.90-5.60[facility] HospitalRBC morphologyOrdered By: James De on 78-67-6731YPK morphology finding Nom (Bld)NormalNoUniversity Hospitals TriPoint Medical Centererum or plasma anion gap determinationOrdered By: James De on 28-12-2102Cygjk gap [Moles/Vol]12.4 mmol/L6.0-15.0UC Healthodium [Moles/volume] in Serum or PlasmaOrdered By: James De on 96-68-1601Upqtia [Moles/Vol]136 mmol/N244-404IhfmbubgsUC Healthpecific gravity Test strip (U) [Rel density]Ordered By: Nish Davidson on 32-73-7102Tuyajbrk gravity (U) [Rel density]1.0151.001-1.030[facility] HospitalTransitional cells [#/area] in Urine by Computer assisted methodOrdered By: Nish Davidson on 69-86-2478Inpeviofzgiw cells Computer assisted (U) [#/Area]1-2 [HPF]High0-1FSelect Medical Specialty Hospital - Cleveland-FairhillUrea nitrogen [Mass/volume] in Serum or PlasmaOrdered By: James De on 32-38-6345Ypjf nitrogen [Mass/Vol]8 mg/dL7-25[facility] HospitalUrine appearance Ordered By: Nish Davidson on 69-83-9369Mbkdnvvxgw (U)ClearClearFSelect Medical Specialty Hospital - Cleveland-FairhillUrobilinogen Test strip (U) [Mass/Vol]Ordered By: Nish Davidson on 02-07-2319Eyucdmghyimp (U) [Mass/Vol]Normal mg/dLNormalPromedica Flower HospitalWBC Auto (Bld) [#/Vol]Ordered By: James De on 36-63-3985WGZ (Bld) [#/Vol]9.0 10*3/uL4.1-10.5FSelect Medical Specialty Hospital - Cleveland-FairhillpH Test strip (U)Ordered By: Nish Davidson on 21-85-6264iF (U)6.0 [pH]5.0-9.0[facility] HospitalAlanine aminotransferase [Enzymatic activity/volume] in Serum or PlasmaOrdered By: Ty Winkler on 25-94-2472MGQ [Catalytic activity/Vol]24 U/L7-52 [facility] HospitalAlbumin [Mass/volume] in Serum or Plasma by Bromocresol green (BCG) dye binding methoOrdered By: Ty Winkler on 01-29-2024 Albumin BCG dye [Mass/Vol]4.9 g/dL3.5-5.7FSelect Medical Specialty Hospital - Cleveland-Fairhill Alkaline phosphatase [Enzymatic activity/volume] in Serum or PlasmaOrdered By: Ty Winkler on 60-92-9235PRK [Catalytic activity/Vol]96 U/G82-198VcbxnbxoqPromedica Flower HospitalAmylase [Enzymatic activity/volume] in Serum or Plasma Ordered By: Ty Winkler on 01-20-3527Eqxusoc [Catalytic activity/Vol]47 U/L29-103 [facility] HospitalAspartate aminotransferase [Enzymatic activity/volume] in Serum or PlasmaOrdered By: Ty Winkler on 04-18-4618IQP [Catalytic activity/Vol]21 U/Y93-78PsjhvytoaPromedica Flower HospitalBasophils Auto (Bld) [#/Vol]Ordered By: Ty Winkler on 09-55-0590Efrnnmsdm (Bld) [#/Vol]N/A [facility] HospitalBasophils/100 WBC Auto (Bld)Ordered By: Ty Winkler on 76-89-4137Rfaiseggs/100 WBC (Bld)N/AFSelect Medical Specialty Hospital - [facility]hill Bilirubin Test strip Ql (U)Ordered By: Ty Winkler on 42-91-1821Qcwmdvyih Ql (U) NegativeNegativePromedica Flower HospitalBilirubin.direct [Mass/volume] in Serum or PlasmaOrdered By: Ty Winkler on 24-67-1923Hammtuqag.direct [Mass/Vol]0.10 mg/dL0.03-0.18FSelect Medical Specialty Hospital - Cleveland-FairhillBilirubin.total [Mass/volume] in Serum or PlasmaOrdered By: Ty Winkler on 72-20-8849Tmzelajjo [Mass/Vol]0.8 mg/dL0.3-1.0[facility] HospitalCalcium [Mass/volume] in Serum or PlasmaOrdered By: Ty Winkler on 74-77-0687Scxbiqu [Mass/Vol]10.2 mg/dL8.6-10.3FSelect Medical Specialty Hospital - Cleveland-FairhillCarbon dioxide, total [Moles/volume] in Serum or PlasmaOrdered By: Ty Winkler on 31-65-9130VL7 [Moles/Vol]26.4 mmol/L21.0-31.0[facility] HospitalChloride [Moles/volume] in Serum or PlasmaOrdered By: Ty Winkler on 00-15-6905Ybmlkhoc [Moles/Vol]98 mmol/D78-839HiytedhusPromedica Flower HospitalColor Auto (U)Ordered By: Ty Winkler on 41-19-3104Jfcfj (U)ColorlessYellowPromedica Flower HospitalCreatinine [Mass/volume] in Serum or PlasmaOrdered By: Ty Winkler on 68-10-9402Wksqozyrfx [Mass/Vol]1.07 mg/dL0.70-1.30[facility] HospitalEosinophils Auto (Bld) [#/Vol]Ordered By: Ty Winkler on 01-29-2024 Eosinophils (Bld) [#/Vol]N/AFSelect Medical Specialty Hospital - Cleveland-FairhillEosinophils/100 WBC Auto (Bld)Ordered By: Ty Winkler on 05-72-2633Jurknuhwdqg/100 WBC (Bld)N/A [facility] HospitalEosinophils/100 WBC Manual cnt (Bld)Ordered By: Ty Winkler on 33-01-9204Tncdjphymkh/100 WBC (Bld)5 %High1-3FSelect Medical Specialty Hospital - Cleveland-FairhillErythrocyte distribution width Auto (RBC) [Ratio]Ordered By: Ty Winkler on 79-49-3296Dgloleppexf distribution width (RBC) [Ratio]12.1 %12.0-14.8 [facility] HospitalGiant platelets/100 leukocytes [Ratio] in Blood by Manual countOrdered By: Ty Winkler on 19-35-5629Ykvbm platelets/100 WBC Manual cnt (Bld) [Ratio]1 /100{WBC}[facility] HospitalGlobulin Calc (S) [Mass/Vol]Ordered By: Ty Winkler on 53-85-3532Dlvgjzyj (S) [Mass/Vol] 3.1 g/dLPromedica Flower HospitalGlucose [Mass/volume] in Serum or PlasmaOrdered By: Ty Winkler on 62-30-1039Pomjvpr [Mass/Vol]103 mg/mBXsae53-323 [facility] HospitalComment on above:ADA recommended reference rangeRandom Glucose Reference Range is dependent on time and content of last meal. Glucose of more than 200 mg/dL in a nonstressed, ambulatory subject supports the diagnosisof Diabetes Mellitus.Glucose [Mass/volume] in Urine by Test stripOrdered By: Ty Winkler on 29-04-2974Blqnusj Test strip (U) [Mass/Vol] Normal mg/dLNormalPromedica Flower HospitalHematocrit Auto (Bld) [Volume fraction]Ordered By: Ty Winkler on 88-58-0544Wcccczowbb (Bld) [Volume fraction] 54.1 %High38.8-50.0[facility] HospitalHemoglobin Test strip Ql (U) Ordered By: Ty Winkler on 26-67-1411Iuqmxwmhec Ql (U)NegativeNegativePromedica Flower HospitalHemoglobin [Mass/volume] in BloodOrdered By: Ty Winkler on 79-12-6010Dlohyzobgw (Bld) [Mass/Vol]18.9 g/tPOewk30.0-17.0[facility] HospitalKetones Test strip Ql (U)Ordered By: Ty Winkler on 01-29-2024 Ketones Ql (U)NegativeNegativePromedica Flower HospitalLeukocyte esterase [Presence] in Urine by Test stripOrdered By: Ty Winkler on 01-29-2024 Leukocyte esterase Test strip Ql (U)NegativeNegativePromedica Flower HospitalLeukocytes [#/volume] corrected for nucleated erythrocytes in Blood by Automated counOrdered By: Ty Winkler on 10-61-5221BRG corrected for nucl RBC Auto (Bld) [#/Vol]6.8 10*3/uL4.1-10.5FSelect Medical Specialty Hospital - Cleveland-FairhillLipase [Enzymatic activity/volume] in Serum or PlasmaOrdered By: Ty Winkler on 31-07-3395Zqhdvu [Catalytic activity/Vol]29.0 U/L11.0-82.0[facility] HospitalLymphocytes Auto (Bld) [#/Vol]Ordered By: Ty Winkler on 01-29-2024 Lymphocytes (Bld) [#/Vol]N/[facility] HospitalLymphocytes/100 WBC Auto (Bld)Ordered By: Ty Winkler on 81-55-5158Elpwnoowgxr/100 WBC (Bld)N/A [facility] HospitalLymphocytes/100 WBC Manual cnt (Bld)Ordered By: Ty Winkler on 37-52-4890Dhgrezikfuk/100 WBC (Bld)28 %18-42[facility] ToledoH Auto (RBC) [Entitic mass]Ordered By: Ty Winkler on 01-29-2024 MCH (RBC) [Entitic mass]32.4 pg27.5-35.2FSelect Medical Specialty Hospital - Cleveland-FairhillMCHC Auto (RBC) [Mass/Vol]Ordered By: Ty Winkler on 63-60-5477LBFE (RBC) [Mass/Vol] 35.0 g/dL32.5-35.6FSelect Medical Specialty Hospital - Cleveland-FairhillMCV Auto (RBC) [Entitic vol] Ordered By: Ty Winkler on 37-84-1166JFJ (RBC) [Entitic vol]92.7 fL83.5-101 [facility] HospitalMonocyte distribution width [Entitic volume] in Blood by AutomatedOrdered By: Ty Winkler on 54-32-6978Szrcqhcw distribution width Auto (Bld) [Entitic vol]18.41 %0.00-20.00[facility] Monocytes Auto (Bld) [#/Vol]Ordered By: Ty Winkler on 57-97-3624Megvwgpty (Bld) [#/Vol]N/[facility] HospitalMonocytes/100 WBC Auto (Bld)Ordered By: Ty Winkler on 38-49-1636Erahtygci/100 WBC (Bld)N/[facility] HospitalMonocytes/100 WBC Manual cnt (Bld)Ordered By: Ty Winkler on 01-29-2024 Monocytes/100 WBC (Bld)4 %2-11[facility] HospitalNeutrophils Auto (Bld) [#/Vol]Ordered By: Ty Winkler on 19-09-9232Gtzitztufpk (Bld) [#/Vol]N/A [facility] HospitalNeutrophils/100 WBC Auto (Bld)Ordered By: Ty Winkler on 70-65-8604Oxtjcffmgqc/100 WBC (Bld)N/[facility] Nitrite Test strip Ql (U)Ordered By: Ty Winkler on 46-10-7890Wxddqei Ql (U) NegativeNegMarietta Memorial HospitalNo Panel InformationOrdered By: Ty Winkler on 00-76-3039Sqjxylejt GFR (CKD-EPI)> 60.0 mL/MinPromedica Flower HospitalPharmacy Creatinine Clearance (Chem83.32[facility] HospitalNucleated erythrocytes [Presence] in Blood by Automated countOrdered By: Ty Winkler on 32-10-8524Zzrmgizhz RBC Auto Ql (Bld)N/[facility] HospitalPlatelet adequacy [Presence] in Blood by Light microscopyOrdered By: Ty Winkler on 18-64-3891Fuqroojut LM Ql (Bld)NormalNoHocking Valley Community HospitalPlatelet mean volume Auto (Bld) [Entitic vol]Ordered By: Ty Winkler on 33-35-0670Fppsjgae mean volume (Bld) [Entitic vol]8.1 fL6.6-10.1FSelect Medical Specialty Hospital - Cleveland-FairhillPlatelet morphology finding [Identifier] in BloodOrdered By: Ty Winkler on 94-73-8097Uqhjascl morphology finding Nom (Bld)NormalTrumbull Memorial HospitalPlatelets Auto (Bld) [#/Vol]Ordered By: Ty Winkler on 43-78-4927Nimmbaxkr (Bld) [#/Vol]245 10*3/xK653-655NklpwfoxaPromedica Flower HospitalPotassium [Moles/volume] in Serum or PlasmaOrdered By: Ty Winkler on 37-63-2002Zjgpgdbaj [Moles/Vol]3.9 mmol/L3.5-5.1FSelect Medical Specialty Hospital - Cleveland-FairhillProtein Test strip (U) [Mass/Vol]Ordered By: Ty Winkler on 01-29-2024 Protein (U) [Mass/Vol]NegativeNegMarietta Memorial HospitalProtein [Mass/volume] in Serum or PlasmaOrdered By: Ty Winkler on 20-60-5143Tuldgbb [Mass/Vol]8.0 g/dL6.4-8.9[facility] HospitalRB Auto (Bld) [#/Vol] Ordered By: Ty Winkler on 82-89-6060TRQ (Bld) [#/Vol]5.83 10*6/uLHigh3.90-5.60 [facility] HospitalRB morphologyOrdered By: Ty Winkler on 34-69-6632LMZ morphology finding Nom (Bld)NormalNormalUC Healthegmented neutrophils/100 WBC Manual cnt (Bld)Ordered By: Ty Winkler on 10-27-7147Cdqgduvrv neutrophils/100 WBC (Bld)58 %50-70UC Healtherum or plasma albumin/globulin mass ratioOrdered By: Ty Winkler on 33-74-3500Jyewpjv/Globulin [Mass ratio]1.6 {ratio}UC Healtherum or plasma anion gap determinationOrdered By: Ty Winkler on 47-30-7396Bansg gap [Moles/Vol]10.5 mmol/L6.0-15.0UC Healtherum or plasma non-glucuronidated bilirubin measurement (mass/volume) Ordered By: Ty Winkler on 82-31-3650Asrutaisl.indirect [Mass/Vol]0.7 mg/dL UC Healthodium [Moles/volume] in Serum or PlasmaOrdered By: Ty Winkler on 91-10-3764Taxuut [Moles/Vol]131 mmol/OAgi835-959PtstjexcpUC Healthpecific gravity Test strip (U) [Rel density]Ordered By: Ty Winkler on 48-32-9877Vyjgyakp gravity (U) [Rel density]1.0031.001-1.030 [facility] HospitalUrea nitrogen [Mass/volume] in Serum or Plasma Ordered By: Ty Winkler on 27-49-6579Ulgw nitrogen [Mass/Vol]6 mg/dLLow7-25 [facility] HospitalUrine appearanceOrdered By: Ty Winkler on 18-19-8502Ratanjbtpw (U)ClearClearFSelect Medical Specialty Hospital - Cleveland-FairhillUrobilinogen Test strip (U) [Mass/Vol]Ordered By: Ty Winkler on 66-39-6686Ntxepgnfastn (U) [Mass/Vol]Normal mg/dLNormalPromedica Flower HospitalVariant lymphocytes/100 WBC Manual cnt (Bld)Ordered By: Ty Winkler on 64-18-1277Fxftdmg lymphocytes/100 WBC (Bld)6 %0-12[facility] HospitalWBC Auto (Bld) [#/Vol]Ordered By: Ty Winkler on 69-19-7147OHG (Bld) [#/Vol]6.8 10*3/uL4.1-10.5 [facility] HospitalpH Test strip (U)Ordered By: Ty Winkler on 37-64-3296kK (U)7.5 [pH]5.0-9.0[facility] HospitalCBC AUTO DIFFon 79-79-9941ASIZ #0.1 103/ulNormal0.0-0.1The [facility] HospitalComment on above: Performed By: #### CBC #### [facility] [address] [address] [address] Pravin TravisBasophils/100 WBC (Bld)0.7 %Normal0.2-2.0[facility] Comment on above:Performed By: #### CBC #### [facility] [address] [address] [address] Pravin Lopez #0.6 103/ulNormal0.0-0.7The [facility] HospitalComment on above: Performed By: #### CBC #### [facility] [address] [address] [address] Pravin Orourkeosinophils/100 WBC (Bld)7.4 %Critically high0.9-7.0The [facility] HospitalComment on above:Performed By: #### CBC #### [facility] [address] [address] [address] Pravin Orourkerythrocyte distribution width (RBC) [Ratio]12.3 %Ytpwuj71.0-15.0 The [facility] HospitalComment on above:Performed By: #### CBC #### [facility] [address] [place] [address] Dr. Pravin TravisHematocrit (Bld) [Volume fraction]47.2 %Mbtrbf08.0-54.0The [facility] HospitalComment on above:Performed By: #### CBC #### [facility] [address] [place] [address] Dr. Pravin TravisHemoglobin (Bld) [Mass/Vol]16.2 g/fJHvzgwk23.0-18.0The [facility] HospitalComment on above:Performed By: #### CBC #### [facility] [address] [place] [address] Dr. Pravin Robles #0.03 10e3/ulNormal0.00-0.03The [facility] HospitalComment on above:Performed By: #### CBC #### [facility] [address] [place] [address] Dr. Pravin Robles %0.4 %Normal0.0-0.5The [facility] HospitalComment on above: Performed By: #### CBC #### [facility] [address] [place] [address] Dr. Pravin Prater #2.1 103/ulNormal1.2-3.8The [facility] HospitalComment on above:Performed By: #### CBC #### [facility] [address] [place] [address] Dr. Pravin Wagonermphocytes/100 WBC (Bld)24.3 %Sfckom75.5-60.0The [facility] HospitalComment on above:Performed By: #### CBC #### [facility] [address] [place] [address] Dr. Pravin BryantUAL DIFF REQNONormalThe [facility] HospitalComment on above: Performed By: #### CBC #### [facility] [address] [place] [address] Dr. Pravin Ha (RBC) [Entitic mass]32.6 trAnyqlk60.9-34.0The [facility] HospitalComment on above:Performed By: #### CBC #### [facility] [address] [place] [address] Dr. Pravin GrossHC (RBC) [Mass/Vol]34.3 g/sQZcsahc13.9-35.2The [facility] HospitalComment on above:Performed By: #### CBC #### [facility] [address] [place] [address] Dr. Pravin GrossV (RBC) [Entitic vol]95.0 fLCritically high80.0-94.0The [facility] HospitalComment on above:Performed By: #### CBC #### [facility] [address] [place] [address] Dr. Pravin Brady #0.8 103/ulNormal0.3-0.8The [facility] HospitalComment on above:Performed By: #### CBC #### [facility] [address] [place] [address] Dr. Pravin Diasocytes/100 WBC (Bld)9.7 %Normal1.7-12.0[facility] Comment on above:Performed By: #### CBC #### [facility] [address] [place] [address] Dr. Pravin Morejon #4.9 103/ulNormal1.4-6.5The [facility] HospitalComment on above:Performed By: #### CBC #### [facility] [address] [place] [address] Dr. Pravin Aponteutrophils/100 WBC (Bld)57.5 %Jlrzay31.0-75.0The [facility] HospitalComment on above:Performed By: #### CBC #### [facility] [address] [place] [address] Dr. Pravin Rivaslet mean volume (Bld) [Entitic vol]10.4 fLNormal9.5-13.5The [facility] HospitalComment on above:Performed By: #### CBC #### [facility] [address] [place] [address] Dr. Pravin LimonT215 103/etIraogd123-040Qjp [facility] HospitalComment on above: Performed By: #### CBC #### [facility] [address] [address] [address] Pravin TravisRBC4.97 106/ulNormal4.70-6.10The [facility] HospitalComment on above:Performed By: #### CBC #### [facility] [address] [address] [address] Pravin TravisWBC8.6 103/ulNormal4.0-11.0The [facility] HospitalComment on above: Performed By: #### CBC #### [facility] [address] [address] [address] Pravin TravisCT ABD/PELV W CONon 26-65-3676AK ABD/PELV W CONEXAMINATION: CT ABD/PELV W CON HISTORY: GENERALIZED ABDOMINAL [...] Electronically authenticated by: ALANA MORROW Date: 2022-03-26 01:[address] [place] [address] URINE PROFILEon 27-25-1248Tzjinzyaq Ql (U)NegativeNormal NEGATIVEThe [facility] HospitalComment on above:Performed By: #### ERUR #### [facility] [address] [place] [address] Dr. Pravin TravisClarity (U)SL CLOUDYAbnormalCLEARThe [facility] HospitalComment on above:Performed By: #### ERUR #### [facility] [address] [place] [address] Dr. Pravin Alejandre (U)LT. YELLOWNormalYELLOWDayton Va Medical CenterComment on above:Performed By: #### ERUR #### [facility] [address] [place] [address] Dr. Pravin Mohamud micrscopic examination will be performed if indicated. NormalThe Philadelphia HospitalComment on above:Performed By: #### ERUR #### [facility] [address] [place] [address] Dr. Pravin TravisGlucose Ql (U)NegativeNormalNEGATIVEDayton Va Medical CenterComment on above:Performed By: #### ERUR #### [facility] [address] [place] [address] Dr. Pravin TravisHemoglobin Ql (U)NegativeNormalNEGATIVEDayton Va Medical Center Comment on above:Performed By: #### ERUR #### [facility] [address] [place] [address] Dr. Pravin TravisKetones Ql (U)NegativeNormalNEGATIVEDayton Va Medical CenterComment on above:Performed By: #### ERUR #### [facility] [address] [place] [address] Dr. Pravin TravisLEUKOCYTESNegativeNormalNEGATIVEDayton Va Medical CenterComment on above:Performed By: #### ERUR #### [facility] [address] [place] [address] Dr. Pravin TravisNitrite Ql (U)NegativeNormalNEGATIVEDayton Va Medical CenterComment on above:Performed By: #### ERUR #### [facility] [address] [place] [address] Dr. Pravin TravispH (U)7.5 [pH]Normal5-9Day[facility] Medical CenterComment on above: Performed By: #### ERUR #### [facility] [address] [place] [address] Dr. Pravin TravisSPEC GRAVITY1.288Ipqmgy0.005-<=1.025Day[facility] Va Medical CenterComment on above:Performed By: #### ERUR #### [facility] [address] [place] [address] Dr. Pravin Gregory PROTEINNegativeNormalNEGATIVE/ TRACEThe [facility] Comment on above:Performed By: #### ERUR #### [facility] [address] [place] [address] Dr. Pravin Muniz MICRO INDNOT INDICATEDNormalThe Dunlap Memorial HospitalComment on above:Performed By: #### ERUR #### [facility] [address] [place] [address] Dr. Pravin Velazquezbilinogen Qn (U)0.2 {Katie'U}/dLNormal0.2 - 1.0The [facility] HospitalComment on above:Performed By: #### ERUR #### [facility] [address] [place] [address] Dr. Pravin Bowman 14(COMP METB)on 14-07-4240Uvuwosz [Mass/Vol]4.3 g/dLNormal 3.4-5.0The [facility] HospitalComment on above:Performed By: #### CMP #### [facility] [address] [place] [address] Dr. Pravin TravisAlbumin/Globulin [Mass ratio]1.3 {ratio}NormalThe [facility] HospitalComment on above:Performed By: #### CMP #### [facility] [address] [place] [address] Dr. Pravin Kumar [Catalytic activity/Vol]92 U/EDxmpdx21-643Gsk [facility] HospitalComment on above:Performed By: #### CMP #### [facility] [address] [place] [address] Dr. Pravin Bautista [Catalytic activity/Vol]31 U/WQoufnn43-29Jpa [facility] HospitalComment on above:Performed By: #### CMP #### [facility] [address] [place] [address] Dr. Pravin Beard gap [Moles/Vol]10.9 mmol/LNormalThe [facility] Comment on above:Performed By: #### CMP #### [facility] [address] [place], [place] [id number] Dr. Pravin TravisAST [Catalytic activity/Vol]31 U/BEvitzb45-16Ikk [facility] HospitalComment on above:Performed By: #### CMP #### [facility] [address] [place] [address] Dr. Pravin TravisBilirubin [Mass/Vol]0.5 mg/dLNormal0.2-1.0[facility] Comment on above:Performed By: #### CMP #### [facility] [address] [place] [address] Dr. Pravin TravisCalcium [Mass/Vol]9.3 mg/dLNormal8.5-10.1[facility] Comment on above:Performed By: #### CMP #### [facility] [address] [place] [address] Dr. Pravin TravisChloride [Moles/Vol]103 mmol/QDmpslu32-105Tzq [facility] Comment on above:Performed By: #### CMP #### [facility] [address] [place] [address] Dr. Pravin TravisCO2 [Moles/Vol]29.8 mmol/FSffxot94.0-32.0[facility] Comment on above:Performed By: #### CMP #### [facility] [address] [place] [address] Dr. Pravin TravisCreatinine [Mass/Vol]1.22 mg/dLNormal0.70-1.30The [facility] HospitalComment on above:Performed By: #### CMP #### [facility] [address] [place] [address] Dr. Pravin OrourkeGFR-AF BURKINAN>60Normal>=60The [facility] HospitalComment on above:Performed By: #### CMP #### [facility] [address] [place] [address] Dr. Praivn OrourkeGFR-NON AF BURKINAN>60Normal>=60The [facility] HospitalComment on above:Performed By: #### CMP #### [facility] [address] [place] [address] Dr. Pravin TravisGlobulin (S) [Mass/Vol]3.4 g/dLNormCentervilleComment on above:Performed By: #### CMP #### [facility] [address] [place] [address] Dr. Pravin TravisGlucose [Mass/Vol]91 mg/gPPrxboj35-962YqaDayton Va Medical Center Comment on above:Performed By: #### CMP #### [facility] [address] [place] [address] Dr. Pravin TravisPotassium [Moles/Vol]3.7 mmol/LNormal3.5-5.1[facility] Comment on above:Performed By: #### CMP #### [facility] [address] [place] [address] Dr. Pravin TravisProtein [Mass/Vol]7.7 g/dLNormal6.4-8.2[facility] Comment on above:Performed By: #### CMP #### [facility] [address] [place] [address] Dr. Pravin TravisSodium [Moles/Vol]140 mmol/QBuzoon811-390XasDayton Va Medical Center Comment on above:Performed By: #### CMP #### [facility] [address] [place] [address] Dr. Pravin TravisUrea nitrogen [Mass/Vol]11.0 mg/dLNormal7.0-18.0[facility] CenterComment on above:Performed By: #### CMP #### [facility] [address] [place] [address] Dr. Pravin TravisUrea nitrogen/Creatinine [Mass ratio]9.0 mg/mgNormalThGrant HospitalComment on above:Performed By: #### CMP #### [facility] [address] [place] [address] Dr. Pravin Locke Quick Testingon 89-01-3349MbsiezDpvszkcgLjzjj [employer] Other COVID Quick Testingon 29-48-6239AvfqjgRqpstaoxAfdje [employer] Other Quick Fluon 70-18-9631WWCQH Ab CF (S) [Titer]Negative [facility] [employer] Other FLUBV Ab CF (S) [Titer]NegativeKlickitat Valley Health [employer] Other Vital Signs Date TimeVital SignValuePerforming QgofodeyvSumcxaas70-25-1190 16:30-0400 Diastolic blood qsjkxfle832 mm[Hg]Cisco Furlong DO Work Phone: [facility]07-29-2025 16:30-0400 Heart rate76 /[employer]is Calpanolong DO Work Phone: [facility]07-29-2025 16:30-0400 Respiratory rate16 /minDennis Furlong DO Work Phone: [phone]07-29-2025 16:30-0400 SaO2% (BldA) [Mass fraction]97 %Cisco Furlong DO Work Phone: [phone]07-29-2025 16:30-0400 Systolic blood uuvdyxac373 mm[Hg]Cisco Furlong DO Work Phone: [phone]07-29-2025 16:00-0400 Body ceirpfshvwa29.8 [degF]Cisco Furlong DO Work Phone: [facility]07-29-2025 11:36-0400 Body .72 cmDennis Furlong DO Work Phone: [phone]07-29-2025 11:36-0400 Body tzokib69.9 kgDennis Furlong DO Work Phone: [phone]07-10-2025 12:24-0400 Body luhewn372.3 cmJeYoutuo Work Phone: c[facility] CenterAupzhu90-63-0453 12:24-0400Body mass index (BMI) [Ratio]29.53 kg/g6Iwteqne Sankovic PA-C Work Phone: [phone] Gazppz59-49-4114 12:24-0400Body temperature 97 [degF]Lydia Woodsonic PA-C Work Phone: [phone] Euqmbk05-41-4147 12:24-0400Body xrwuro53.72 kgLydia Woodsonic PA-C Work Phone: [place] Ysbzpo67-03-8171 12:24-0400Diastolic blood aagiklub48 mm[Hg]Lydia Woodsonic PA-C Work Phone: [place] Lxtfwv16-07-6808 12:24-0400Heart rate76 /min Lydia Woodsonic PA-C Work Phone: [place] Limbyn59-51-6175 12:24-6865OhT7% (BldA) [Mass fraction]97 %Lydia Woodsonic PA-C Work Phone: [phone] Efvmlu16-61-7394 12:24-0400Systolic blood mm[Hg]Lydia Woodsonic PA-C Work Phone: [phone] Jyjxot58-56-1071 13:45-0400Body gatglw027.72 cmDenchelsea Carcamolong DO Work Phone: [facility]06-30-2025 13:45-0400 Body mass index (BMI) [Ratio]28.8 kg/r1Eujegs Furlong DO Work Phone: [facility]06-30-2025 13:45-0400 Body .18 kgDenchelsea Carcamolong DO Work Phone: [facility]05-21-2025 12:53-0400 Diastolic blood iopzidaz953 mm[Hg]Vivian Brady [phone]-LnqsyGeorgetown Behavioral Hospital Digestive Culijh04-64-8567 12:53-0400Mean blood uijmahee004 mm[Hg]Vivian Brady [phone]-EpvfpSycamore [facility] Center05-21-2025 12:53-0400Systolic blood aqxnwylq565 mm[Hg]Vivian Brady [phone]-JjgcaSycamore Medical Center05-21-2025 12:43-0400Blood Pressure LocationVivian Brady [phone]-WtdxiSycamore Medical Center05-21-2025 12:43-0400Diastolic blood mjdfucdd462 mm[Hg]Vivian Brady [phone]-TbmqpSycamore Medical Center05-21-2025 12:43-0400Heart rate80 /miniVvian Brady [phone]-TrshkSycamore Medical Center05-21-2025 12:43-0400Systolic blood zsjbtnas769 mm[Hg]Vivian rBady [phone]-OzqmnSycamore Medical Center04-21-2025 13:07-0400Body knspoo620.7 cmCisco Carcamolong DO Work Phone: [facility] CenterSource[facility] Dhjzxt32-95-5792 13:07-0400Body mass index (BMI) [Ratio]29.47 kg/b0Oiwkaa Furlong DO Work Phone: [facility] [employer] Gyzdyl92-12-0672 13:07-0400Body sbuoeuagfyt04.4 [degF]Cisco Carcamolong DO Work Phone: [facility] [employer] Tpxulm63-71-9578 13:07-0400Body ztlbax90.91 kgDenchelsea Carcamolong DO Work Phone: [facility] Xuyzsj72-00-2750 13:07-0400Diastolic blood iljqqazj90 mm[Hg]Cisco Carcamolong DO Work Phone: [facility] Jbeoal32-78-5958 13:07-0400Heart rate 102 /minDennis Carlos Albertolong DO Work Phone: [facility] Jcqebp56-65-6969 13:07-0400 Respiratory rate18 /minDfarais Furlong DO Work Phone: [facility] Xllbcs83-14-0488 13:07-3113DnW0% (BldA) [Mass fraction]97 %Cisco Furlong DO Work Phone: [facility] [employer] Hnubpd17-06-5480 13:07-0400Systolic blood lsssmixt347 mm[Hg]Cisco Furlong DO Work Phone: [facility] [employer] Phuobs80-92-5344 14:23-0500Body ukavoa071.7 cmDennis Carlos Albertolong DO Work Phone: [facility] [employer] Zbberx90-50-9580 14:23-0500Body mass index (BMI) [Ratio]28.89 kg/v9Mpamjd Furlong DO Work Phone: [facility] Kqxmnl20-66-5535 14:23-0500Body kesdoreoyym45.9 [degF]Cisco Carcamolong DO Work Phone: [facility] Xabbcj92-06-5353 14:23-0500Body .18 kgDenchelsea Carcamolong DO Work Phone: [facility] [employer] Xvasgm07-40-4132 14:23-0500Diastolic blood voqcfqhy93 mm[Hg]Cisco Carcamolong DO Work Phone: [facility] Agjwuw86-22-1723 14:23-0500Heart rate 105 /Robis Carlos Albertolong DO Work Phone: [facility] Prioek67-35-0140 14:23-0500 Respiratory rate20 /minDfarais Carlos Albertolong DO Work Phone: [facility] [employer] Ojqzof38-91-2674 14:23-5645BfF0% (BldA) [Mass fraction]99 %Cisco Carcamolong DO Work Phone: [facility] Vkyamk90-38-0645 14:23-0500Systolic blood mm[Hg]Cisco Furlong DO Work Phone: [facility]07-25-2024 16:08-0400Body .7 cmDennis Furlong DO Work Phone: [facility]07-25-2024 16:08-0400Body mass index (BMI) [Ratio]27.79 kg/s0Wrdawb Furlong DO Work Phone: [facility]07-25-2024 16:08-0400Body gbagdatbppo12.7 [degF]Cisco Furlong DO Work Phone: [facility]07-25-2024 16:08-0400Body vgyufd27.92 kgDennis Furlong DO Work Phone: [facility]07-25-2024 16:08-0400Diastolic blood iginycas34 mm[Hg]Cisco Furlong DO Work Phone: [facility]07-25-2024 16:08-0400Heart rate 79 /minDennis Furlong DO Work Phone: [facility]07-25-2024 16:08-3647DfY8% (BldA) [Mass fraction]97 %Cisco Furlong DO Work Phone: [facility]07-25-2024 16:08-0400Systolic blood cxwssitt813 mm[Hg]Cisco Furlong DO Work Phone: [facility]07-13-2024 14:00-0400Diastolic blood smpushgj39 mm[Hg]DO Cisco Furlong Work Phone: [facility]07-13-2024 14:00-0400 Heart rate79 /minDO Cisco Furlong Work Phone: [facility]07-13-2024 14:00-0400 Respiratory rate18 /minDO Cisco Furlong Work Phone: [facility]07-13-2024 14:00-0400 SaO2% (BldA) [Mass fraction]95 %DO Cisco Carcamolong Work Phone: [phone]07-13-2024 14:00-0400 Systolic blood ivorufer359 mm[Hg]DO Cisco Carcamolong Work Phone: [phone]07-13-2024 11:20-0400 Body amcejcdhmfp83.2 [degF]DO Cisco Carcamolong Work Phone: [phone] [place], [place] 2816607-13-2024 11:18-0400 Body gaedrp529.72 cmDO Cisco Singhng Work Phone: [phone] [place], [place] [address]16607-13-2024 11:18-0400 Body plnyjo50.65 kgDO Cisco Singhng Work Phone: [phone]06-13-2024 11:29-0400 Body btbnunrlhjc01.6 [degF]Didi Orzech [facility]06-13-2024 11:29-0400Diastolic blood yvpijhtg87 mm[Hg]Didi Orzech [facility]06-13-2024 11:29-0400Heart rate77 /minAurora Orzech [facility]06-13-2024 11:29-0400Respiratory rate16 /minAurora Orzech [facility]06-13-2024 11:29-0400Systolic blood plmvygwl836 mm[Hg]Didi Orzech [facility]06-10-2024 01:11-0400Heart fgam806 /minDO Cisco Carcamolong Work Phone: [facility]06-10-2024 00:30-0400 Respiratory rate22 /minDO Cisco Carcamolong Work Phone: [phone]06-10-2024 00:30-0400 SaO2% (BldA) [Mass fraction]97 %DO Cisco Carcamolong Work Phone: [phone]06-09-2024 23:38-0400 Diastolic blood anecylgw49 mm[Hg]DO Cisco Carcamolong Work Phone: [phone]06-09-2024 23:38-0400 Systolic blood dgybpgfn445 mm[Hg]DO Cisco Carcamolong Work Phone: [phone]06-09-2024 22:45-0400 Body umltel258.72 cmDO Cisco Carcamolong Work Phone: [phone] [place], [place] 28[address]606-09-2024 22:45-0400 Body zaigxu81.2 kgDO Cisco Carcamolong Work Phone: [phone]06-09-2024 22:44-0400 Body iweoxjsttla29.3 [degF]DO Cisco Carcamolong Work Phone: [facility]04-19-2024 08:47-0400 Body jmlnfe432.7 cmMichelle Tito STRUCTURAL ENGINEERING PROJECT MANAGER-LEVEL VIAL INSPECTOR Work Phone: [facility]04-19-2024 08:47-0400Body mass index (BMI) [Ratio]30.08 kg/n9Fziihu Tito STRUCTURAL ENGINEERING PROJECT MANAGER-LEVEL VIAL INSPECTOR Work Phone: [facility]04-19-2024 08:47-0400Body icrlggrdpfu24.29 [degF]Michelle Tito STRUCTURAL ENGINEERING PROJECT MANAGER-LEVEL VIAL INSPECTOR Work Phone: [facility]04-19-2024 08:47-0400Body .72 kgBrnisha Francis STRUCTURAL ENGINEERING PROJECT MANAGER-LEVEL VIAL INSPECTOR Work Phone: [facility]-19-2024 08:47-0400Diastolic blood hjsifmxv38 mm[Hg]Michelle Francis APRN-LEVEL VIAL INSPECTOR Work Phone: [facility]04-19-2024 08:47-0400Heart rate 82 /minMichelle Francis APRN-LEVEL VIAL INSPECTOR Work Phone: [facility]04-19-2024 08:47-0400 Respiratory rate18 /minMichelle Francis APRN-LEVEL VIAL INSPECTOR Work Phone: [facility]04-19-2024 08:47-3023AlS7% (BldA) [Mass fraction]96 %Michelle Francis APRN-LEVEL VIAL INSPECTOR Work Phone: [facility]04-19-2024 08:47-0400Systolic blood inuzpjbq503 mm[Hg]Michelle Francis APRN-LEVEL VIAL INSPECTOR Work Phone: [facility] HospitalR[facility]01-11-2022 13:30-0500Body zrbgti861.72 cmCdisha Andre Other [employer] Other 01-11-2022 13:30-0500Body mass index (BMI) [Ratio] 31.93 kg/i2QibbuiTawnya Andre Other [employer] Other 01-11-2022 13:30-0500Body ybgpdpejool84.4 [degF]Tawnya Andre Other [employer] Other 01-11-2022 13:30-0500Body meupex45.26 kgTawnya Andre Other noThe [employer] Other 01-11-2022 13:30-0500Respiratory rate18 /minTawnya Andre Other [employer] Other 01-11-2022 13:30-8866VrI3% (BldA) [Mass fraction]98 % Tawnya Jes Other noThe [employer] Other 12-21-2021 12:00-0500Body ebxkbw099.72 cmShuang Christine Other noThe [employer] Other 12-21-2021 12:00-0500Body mass index (BMI) [Ratio] 31.93 kg/l5Wmfqxkowq Christine Other noThe [employer] Other 12-21-2021 12:00-0500Body dnwkmjlsyei98.9 [degF] Mary Christine Other noThe [employer] Other 12-21-2021 12:00-0500Body .26 kgStelenajaniceyoshi Christine Other noThe [employer] Other 12-21-2021 12:00-0500Respiratory rate18 /minSaureliagunner King Other noThe [employer] Other 12-21-2021 12:00-7635UmS0% (BldA) [Mass fraction]96 % Mary King Other [employer] Other Encounters Encounter DateEncounter TypeCare ProviderFacilityStart: 54-98-8274ehxsxmgmyg Vivian BradyFacility:[facility] DHStart: 06-04-2025 End: 93-49-6354Opohizm encounter procedurePasherrie JARAMILLO [facility] Cammie Start: 06-04-2025 End: 85-01-0775aindaqxyksPbebjej R WATERSFacility:[place]Start: 05-27-2025 End: 04-29-1809nltmbivqmcNwmvpgp A. MouchliFacility:[facility] DHStart: 05-27-2025 End: 58-92-0338Mtpclml encounter procedureMohamad A. Mouchli [phone]-NudbzGeorgetown Behavioral Hospital [facility] Start: 05-24-2025 End: 14-36-8075fvpxsqinkfRewfnvf R WATERSFacility:EU evueStart: 05-24-2025 End: 61-92-8368Neafdrz encounter procedurePasherrie JARAMILLO [facility] start: 05-20-2025 End: 90-68-9569Qxlfdhjhk department patient visitCISCO RowleyCommunity Memorial Hospital HospitalStart: 05-16-2025 End: 94-41-9654xgvtfpxjcxFtmyul X OrzechFacility:EU tart: 05-16-2025 End: 48-63-9722Ymkecxl encounter procedureAurora X Orzech [facility] start: 05-15-2025 End: 13-09-3866mhkdxbmobkHqkinhg A. MouchliFacility:[facility] DHStart: 05-15-2025 End: 75-83-0489Ezpwfix encounter procedureMohamad A. Mouchli [phone]-FrbulGeorgetown Behavioral Hospital Digestive Health Start: 05-13-2025 End: 52-87-7177GxrzerClqtim G Furlong DO Work Phone: [facility] Family MedicineComment on above:Anal fissure (Primary Dx)Start: 04-23-2025 End: 04-88-1059teooumdbdeYgcuifb A. MouchliFacility:[facility] DHStart: 04-23-2025 End: 03-06-9468Kwkqviy encounter procedureVivian Brady [phone]-DhkomGeorgetown Behavioral Hospital [facility]estive Health Start: 04-08-2025 End: 68-04-1871llgxboibhjJiowvk Furlong DO Work Phone: [facility] Work Phone: Start: 04-08-2025 End: 59-03-6548Eucjzxb encounter procedureEhsan Avina DO-[facility] [place] Work Phone: Start: 04-03-2025 End: 39-56-1145Amnarhndx to same day surgery Maged Drake PA-C Work Phone: colorectal SurgeryComment on above:Pelvic Floor ConferenceStart: 04-03-2025 End: 30-15-9683ljretbjbqzAkvfezf Sankovic PA-C Work Phone: colorectal SurgeryStart: 04-03-2025 End: 01-40-9780O-mail encounter from caregiverLydia ALAN-Remberto Work Phone: colorectal SurgeryStart: 04-03-2025 End: 32-82-4032Cbvwly-up encounterLydia ALAN-Remberto Work Phone: Solorectal SurgeryComment on above:Follow up from virtual visitStart: 04-02-2025 End: 71-32-0155Dutedmmid to same day surgery centerLydia ALAN-Remberto Work Phone: Colorectal SurgeryComment on above:Constipation, unspecified constipation type (Primary Dx); Rectal spasm; Pelvic floor dysfunction; Anxiety; Distressed about housing issues; Orthostatic dizzinessStart: 04-02-2025 End: 75-74-4374Fgvsbcjicabw consultation with Bessie Drake PA-C Work Phone: colorectal SurgeryStart: 04-02-2025 End: 41-57-6040fjbmxhbmitUKWGCHK SANKOVICFacility:[facility] Start: 03-22-2025 End: 12-30-3436QdlrrrQrwvqa G Furlong DO Work Phone: [facility] - Family MedicineComment on above:AnxietyStart: 03-19-2025 End: 95-77-3551Hqslgrknp to same day surgery centerJustin Jia Avina DO-[facility]Start: 03-19-2025 End: 83-75-5100ovcogqpmmpOtxidc Furlong DO Work Phone: [facility] Work Phone: Start: 03-18-2025 End: 31-83-4165Ymwpoqz encounter procedureJuyumiko Avina DO-Pre-Surgical Testing Work Phone: Start: 03-18-2025 End: 70-64-1318kembrnpoddHtgscc Furlong DO Work Phone: [facility] Work Phone: Start: 35-74-8034Gcbaiiqap for preprocedural laboratory examinationJuyumiko AvinaMelbourne Regional Medical Center Physician GroupStart: 03-13-2025 End: 51-38-5807ntnfhnutycUuplff Furlong DO Work Phone: [facility] Work Phone: Start: 03-13-2025 End: 02-58-1729Jqrpfhm encounter procedureJuyumiko Avina DO-[facility] Work Phone: Start: 03-13-2025 End: 62-42-2363Hxbceqb encounter procedureJuyumiko Avina DO-[facility] Start: 03-13-2025 End: 59-63-2507onulautmgjYzlrca Furlong DO Work Phone: [facility] Work Phone: Start: 53-26-0403Ftr-patient / Non-visitJuyumiko Jia Kailyn [facility] Work Phone: Start: 03-07-2025 End: 74-49-4112Qbkuuhozz encounterLydia Drake PA-C Work Phone: colorectal SurgeryComment on above:Patient Update Start: 03-01-2025 End: 45-16-6366Q-mail encounter from caregiverLydia ALAN-Remberto Work Phone: colorectal SurgeryStart: 03-01-2025 End: 25-07-2949Vtktqp-up encounterLydia Drake PA-C Work Phone: colorectal SurgeryComment on above:Follow up from visitStart: 02-28-2025 End: 69-91-4938Xnmnban encounter procedureLydia ALAN-Remberto Work Phone: colorectal SurgeryComment on above:Pelvic floor dysfunction (Primary Dx); Rectal spasm; Constipation, unspecified constipation typeStart: 02-28-2025 End: 32-12-1831Rfzviul evaluation of patient and reportSahil Bergeron RN Colorectal SurgeryComment on above:Pelvic floor dysfunctionStart: 02-28-2025 End: 88-31-0321axrmqplcwyADGJGCB TETERFacility:[facility] Centertart: 02-18-2025 End: 44-51-3194xlozenwkvmWvvqgh Furlong DO Work Phone: [facility] Work Phone: Start: 02-18-2025 End: 22-08-0391Weqsaky encounter procedureEhsan Avina [facility] Work Phone: Start: 02-11-2025 End: 97-55-4832Kivomwgtk encounterAshley Hayward MD Work Phone: Colorectal SurgeryComment on above:Appointment (Left vm we received referral for botox injections)Start: 02-06-2025 End: 66-24-4887GudclpSyatvt Paddy Furlong DO Work Phone: [facility] Family MedicineStart: 01-28-2025 End: 68-36-9596PbkhhyQbxrjg Paddy Furlong DO Work Phone: [facility] - Family MedicineStart: 01-26-2025 End: 37-66-5961ZrcggeSbcyad Paddy Furlong DO Work Phone: [facility] - Family MedicineStart: 01-24-2025 End: 95-06-9814htmymbqrteSxhgrsw A. MouchliFacility:[facility] DHStart: 01-24-2025 End: 90-18-2296Sirgsaw encounter procedureVivian Brady [phone]-KkdajGeorgetown Behavioral Hospital Digestive Health Start: 01-16-2025 End: 43-05-5588Qcfwbtnran Violeta Brady MD Work Phone: Referring PhysicianComment on above:Constipation by outlet dysfunction (Primary Dx); Stress-related physiological response affecting medical conditionStart: 01-09-2025 End: 07-52-0185gxvkcyivapXbibtvr A. MouchliFacility:[facility] DHStart: 01-09-2025 End: 10-49-1466Yngphli encounter procedureVivian Brady [phone]-PpsugGeorgetown Behavioral Hospital Digestive Health Start: 55-26-5619qzxfiihetgAtsfjay Mouchli Facility:[facility] DHStart: 12-31-2024 End: 84-05-2384Gcbfshdmr encounterLinda Marc CMAProMedica Physicians Internal Medicine - Family MedicineStart: 12-26-2024 End: 08-47-7891Luhcen Minerva Paddy Furlong DO Work Phone: [facility] - Family MedicineComment on above:Chronic idiopathic constipation (Primary Dx); Hepatitis C virus infection without hepatic coma, unspecified chronicityStart: 12-20-2024 End: 12-35-6191Rwqnhg OnlyCisco Bonilla DO Work Phone: [facility] MedicineStart: 12-17-2024 End: 69-92-8365Weqxkm OnlyCisco Singhng DO Work Phone: [facility] - Family MedicineComment on above:Irritable bowel syndrome with both constipation and diarrhea (Primary Dx)Start: 12-14-2024 End: 31-16-2510Vutuyy OnlyCisco Bonilla DO Work Phone: [facility] - Family MedicineComment on above:Anal fissure (Primary Dx)Start: 12-12-2024 End: 29-18-8473BxqiecWuzdku G Furlong DO Work Phone: [facility] MedicineStart: 12-10-2024 End: 07-24-1411hhaxzbzfhlNFNOUQ G FURNGProAvita Health System [facility] HospitalStart: 80-52-7121Ckklsbgzm for general adult medical examination without abnormal findingsARLENECHELSEA [facility] HospitalStart: 12-10-2024 End: 79-85-3262Vnxcmfo encounter statusCisco Bonilla DO Work Phone: [facility] SystemStart: 12-10-2024 End: 37-63-1556Hryglazc preventive med est patient 40-64yrsDennis Paddy Bonilla DO Work Phone: [facility] HospitalComment on above:Well adult exam (Primary Dx); Anxiety; Overweight; Iron overload; Encounter for screening for malignant neoplasm of prostate; Ex-smoker; Hypogonadism in male; Severe episode of recurrent major depressive disorder, without psychotic features (CMS-HCC); Irritable bowel syndrome with both constipation and diarrheaStart: 12-10-2024 End: 92-74-0161bxwlqvgxuhAMTTUWLongmont United Hospital Ambulatory PPGStart: 63-66-9281Tqlshqsej for general adult medical examination without abnormal findingsCISCO BONILLAUniversity Hospitals [facility] Ambulatory PPGStart: 11-02-2024 End: 79-39-9314Rqlhog Minerva Bonilla DO Work Phone: [facility] MedicineStart: 10-15-2024 End: 10-70-4504Ncmyui Minerva Bonilla DO Work Phone: [facility] MedicineStart: 09-26-2024 End: 06-74-2688Jlyjxzuav encounterDigestive Healthcare Consultants Work Phone: [facility] Digestive HealthcareStart: 09-13-2024 End: 48-66-5183Mfdsoc Minerva Bonilla DO Work Phone: [facility] MedicineStart: 09-12-2024 End: 89-49-0591Pljnsy OnlyCisco Bonilla DO Work Phone: [facility] MedicineComment on above:Irritable bowel syndrome with both constipation and diarrhea (Primary Dx)Start: 09-11-2024 End: 01-68-8084Tjvide outpatient visit 25 minutesCisco Bonilla DO Work Phone: [facility] MedicineComment on above:Irritable bowel syndrome with both constipation and diarrhea (Primary Dx); Essential hypertension, benign; Anxiety; Encounter for screening for malignant neoplasm of prostateStart: 09-11-2024 End: 09-17-1394TyebvmQwebrg G Furlong DO Work Phone: [facility] MedicineStart: 04-04-2024 End: 41-58-7784Ynvloxpqb encounterCisco Bonilla DO Work Phone: [facility] MedicineStart: 04-03-2024 End: 37-24-2132Yrfzcsu encounter procedureAurora X Orzech [facility] Caren start: 03-16-2024 End: 02-70-9737Linxsj Minreva Bonilla DO Work Phone: [facility] MedicineStart: 03-15-2024 End: 01-32-1677Bssvtp outpatient visit 25 Suad Bonilla DO Work Phone: [facility] Internal [facility] - Family MedicineComment on above:Irritable bowel syndrome with both constipation and diarrhea (Primary Dx); Umbilical hernia without obstruction and without gangrene; Incisional hernia, without obstruction or gangrene; Anal fissureStart: 03-15-2024 End: 51-17-7053vxiywtedbhVSNRZK G FURVAMSHIWashington County Regional Medical Center PPGStart: 03-14-2024 End: 38-12-0406Scsphx Minerva Bonilla DO Work Phone: [facility] MedicineStart: 03-03-2024 End: 72-97-7285Tdyravyno department patient visitDO Cisco Bonilla Work Phone: [facility] Work Phone: Start: 02-20-2024 End: 55-49-7772Tdiemc Minerva Bonilla DO Work Phone: [facility] - Family MedicineStart: 02-13-2024 End: 96-44-9613Uqvzenpnh encounterTy Acharya DO Work Phone: [facility] - Family MedicineStart: 02-05-2024 End: 10-89-4470Uuhdbc Minerva Bonilla DO Work Phone: [facility] - Family MedicineComment on above:Change in bowel habits (Primary Dx); Polyp of colon, unspecified part of colon, unspecified typeStart: 02-02-2024 End: 95-02-6792Btlyocr encounter procedureAurora X Orzech [facility] Cammie Start: 01-31-2024 End: 14-49-2220Mzhgkngqm encounterNicvanessa De La Torre GRAZYNAProMedica Physicians Internal Medicine - Family MedicineStart: 01-29-2024 End: 03-19-3307Vstzpytcp department patient visitDO Cisco Bonilla Work Phone: [facility] Work Phone: Start: 12-09-2023 End: 28-05-1650Gsvnpw outpatient visit 15 minutesMichelle Francis APRNNEW ENGLAND [facility] Work Phone: [facility] Medicine - Family MedicineComment on above:Irritable bowel syndrome with constipation (Primary Dx); Gastroesophageal reflux disease, unspecified whether esophagitis present; 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)Start: 03-26-2022 End: 35-85-6657lcaqyqhuviXZ CISCO SINGHVAMSHIFacility:P7Ppbvj: 09-01-2021 End: 06-52-3482knsbcjguugXjhbvh Taylor Other [facility] [employer] Other Start: 51-27-3304Alhhvt outpatient visit 15 minutes Tawnya [facility] ClydeStart: 08-11-2021 End: 61-11-2440qbmxkdrtweNuvwmqyyf Breault Other [facility] [employer] Other Start: 15-24-8304Cphoqo outpatient visit 15 minutes Mary KingFPPaddy Urgent Care ClydeStart: 08-30-2016 End: 37-20-9544PhkhyzzwpuAGARPYU OSINOWOFacility:[facility] Procedures DateProcedureProcedure DetailPerforming ClinicianStart: 08-07-2342Ifduutjfkgi Ethan JARAMILLO Start: 96-63-8123JhvjqqsdniugqmqkrovegjrottHesikkt JARAMILLO Start: 56-48-5226Ebzw reduction of fracture with internal fixationDennis Carlos Albertolong DO Work Phone: Start: 33-53-0032G-ray of right footDennis Furlong DO Work Phone: Start: 14-54-8553C-ray of right footDennis Furlong DO Work Phone: Start: 40-33-0281ZZGCZ [facility] Violette Maurer STRUCTURAL ENGINEERING PROJECT MANAGER.LEVEL VIAL INSPECTOR Work Phone: Start: 63-89-5060Teudl depression screening assessment Cisco Carcamolong DO Work Phone: Start: 13-36-6494Ivlmd 1996 panel - Serum or Plasma Sahil Carpenterlps RNStart: 40-55-9901Dzammu-up visitFollow-Psychiatric hospitalFARA Paddy SINGHNGStart: 09-31-2399Btmtz depression screening assessmentDenchelsea Carcamolong DO Work Phone: Start: 48-66-5238Qkkloaoota radiography of abdomenDO Cisco Carcamolong Work Phone: Start: 90-73-9225QwhcbxfrptjHwomsz Furlong DO Work Phone: Start: 73-57-8019JE of abdomen and pelvis without contrastDO Cisco Carcamolong Work Phone: Start: 08-84-5983Qsprj depression screening assessment Michelle Tito STRUCTURAL ENGINEERING PROJECT MANAGER-[facility] Work Phone: AppendectomyAurora Orzech ColonoscopyAurora Orzech Plan of Treatment DateCare ActivityDetailAuthorStart: 92-64-1687Effzlolww for malignant neoplasm of colonColonoscopyProMonroe County Hospital Health SystemStart: 99-73-1446Jmggn panelLipid ScreeningSpokane ClinicStart: 98-43-6506Cradrcps specific antigen measurement Prostate Cancer Screening DiscussionMemorial Health System Selby General Hospitaltart: 02-83-3643Tnjibuyw ScreeningDiabetes ScreeningMemorial Health System Selby General Hospitaltart: 65-65-7048Tkbfnzdlqmwsuv of varicella zoster vaccineZoster (Shingles) Vaccine (1 of 2)[facility] SystemComment on above:Postponed from 2018 (Patient Refused)Start: 63-33-8398Owtmi BMI ScreeningAdult BMI ScreeningProMercy Health Lor[facility] Hospital SystemStart: 89-30-3300FSEXV-19 Vaccine ( season)COVID-19 Vaccine ( season)[facility] SystemComment on above:Postponed from 04/22/2024 (Patient Refused)Start: 36-05-3455Xjkyvncbkx ScreeningDepression Screening ProMGrand [facility] SystemStart: 96-94-9007Vgglrtg ScreeningTobacco Screening [facility]dwelltart: 03-73-3873Lknol BMI ScreeningAdult BMI Screening ProMGrand Itasca Clinic and Hospital SystemStart: 92-43-5265Xvkolyi ScreeningTobacco Screening [facility] Caldwelltart: 22-38-7623RHOSL-19 Vaccine ( season) COVID-19 Vaccine ( season)[facility] SystemStart: 04-22-2025 Influenza vaccinationProProMedica Defiance Regional Hospitaltart: 04-02-2025 End: 09-65-8847Auyifvssr to same day surgery gtwmgq0704/02/2025 11:30 AM EDT [facility] Colorectal Surgery [address] [address] Lydia Drake PA-C [address] [place] [address] f/uColorectal SurgeryComment on above:f/u Start: 03-28-2025 End: 80-16-2461Supngol encounter ibtspbybh39/07/2025 1:30 PM EDT OT/PT/Speech Visit [facility] Physical Therapy [address] [place], [place] [id number] Belkys Smith, PT, DPT tightness in my rectum, anus i cant push out poopParkview Health Walker Physical TherapyComment on above:tightness in my rectum, anus i cant push out poopStart: 31-06-5050YpawmnfwaUC Healthtart: 00-79-2411O-ray of right footXR foot RT 2VUC Healthtart: 00-18-5511MC Foot - right 2 ViewsUC Healthtart: 53-52-0379FqlwvvjxhUC Healthtart: 03-15-2025 End: 59-54-1473Jemxdrnde to same day surgery adqrnj6903/15/2025 4:30 PM EDT [facility] Colorectal Surgery [address] [address] George Navarrete DO [address] [place] [address] BOTOXColorectal SurgeryComment on above:BOTOXStart: 78-30-2178Wjlgr BMI ScreeningAdult BMI ScreeningProMon[facility] Hospital Health SystemStart: 77-64-2491Isjmykxnft ScreeningDepression ScreeningProSalem City Hospitalca Health SystemStart: 51-81-8979Cffodvl ScreeningTobacco ScreeningProMedica [facility] Hospital SystemStart: 85-28-9663F-ray of right footXR foot RT min 3V*[facility] Start: 77-67-3240YO Foot - right GE 3 ViewsPromedica Flower Hospital Start: 02-21-2025 End: 08-73-0292Vhqbxxr encounter ispusnlia19/03/2025 10:30 AM EDT Office Visit General Surgery [address] [address] Jey Kapadia MD [address] [place] [address] Consult Botox InjectionGeneral SurgeryComment on above:Consult Botox InjectionStart: 30-86-7287Rzpdi BMI ScreeningAdult BMI ScreeningProMercy Health Lor[facility] Hospital SystemStart: 09-07-9025Xanrxsprf for malignant neoplasm of colonParkview Health Start: 32-26-6614Mptznpv ScreeningTobacco ScreeningSt. Mary's Medical Centerca [facility] SystemStart: 18-18-5102Vsnxsqk ScreeningTobacco ScreeningSt. Mary's Medical Centerca [facility] SystemStart: 12-10-2024 End: 87-96-2422JT Chest for screening WO contrastCT low dose lung screening (Annual) Imaging Routine Ex-smoker Expected: 12/10/2024, Expires: 12/10/2025 [facility] SystemComment on above:Expected: 12/10/2024, Expires: 12/10/2025Start: 12-10-2024 End: 21-47-5013Itkobar encounter lhypsxwea28/21/2025 1:00 PM EDT Office Visit [facility] [address] [place] [phone] Cisco Bonilla, [address] [facility] [place] [address] [facility] - Family MedicineStart: 07-23-6554Uvgbl BMI ScreeningAdult BMI ScreeningProMercy Health Lorain Hospital SystemStart: 57-54-1805Qejwhsszgg ScreeningDepression ScreeningProMedica [facility] Hospital SystemStart: 83-87-5134Hfncats ScreeningTobacco ScreeningProMedica Bay Park Hospital SystemStart: 09-26-2024 End: 78-18-1340Vlroqqm encounter byohzuvnx39/05/2025 2:00 PM EST Office Visit [facility] [address] [facility] [place] [phone] Aníbal Will, DO [address] [facility] [address] [place] [address] [facility]ive HealthcareStart: 06-04-2024 End: 16-35-5326Kkovbqp encounter jlkdqdzsy61/14/2024 2:15 PM EDT Office Visit [facility] [address] [place] [address] Cisco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 Diastolic Blood Pressure 109 mmHg HI 06/04/2025 9:15 EDT Temperature Temporal Artery 36.6 DegC Heart Rate Monitored 78 bpm Respiratory Rate Monitored 15 br/min Systolic Blood Pressure 173 mmHg HI Diastolic Blood Pressure 109 mmHg HI Blood Pressure Location Left arm SpO2 98 % Measurements from flowsheet : Measurements 06/04/2025 9:11 EDT Height/Length Measured 173 cm Height/Length Dosing 173.0 cm Weight Dosing 73.0 kg BSA Measured 1.87 m2 Body Mass Index Measured 24.39 kg/m2 Weight Measured 73 kg Airway: Mallampati classification: II (soft palate, fauces, uvula visible). Respiratory: Lungs are clear to auscultation, Respi (more content not included)...[facility] HospitalComment on above:Result Comment: Electronically Signed By: Elvis Alvares Jr., DO.br\Date and Time Signed: 06/04/25 09:25 [id number] Hospital Discharge instructions Patient Education 05/16/2025 12:00:39 Benign Prostatic Hyperplasia Benign Prostatic Hyperplasia Benign prostatic hyperplasia (BPH) is an enlarged prostate gland that is caused by the normal agingprocess. The prostate may get bigger as a man gets older. The condition is not caused by cancer. The prostate is a walnut-sized gland that is involved in the production of semen. It is located in front of the rectum and below the bladder. The bladder stores urine. The urethra carries stored urine ou t of the body. An enlarged prostate can press on the urethra. This can make it harder to pass urine. The buildup of urine in the bladder can cause infection. Back pressure and infection may progress to bladder damage and kidney (renal) failure. What are the causes? This condition is part of the normal aging process. However, not all men develop problems from thiscondition. If the prostate enlarges away from the urethra, urine flow will not be blocked. If it enlarges toward the urethra and compresses it, there will be problems passing urine. What increases the risk? This condition is more likely to develop in men older than 50 years. What are the signs or symptoms? Symptoms of this condition include: Getting up often during the night to urinate. Needing to urinate frequently during the day. Difficulty starting urine flow. Decrease in size and strength of your urine stream. Leaking (dribbling) after urinating. Inability to pass urine. This needs immediate treatment. Inability to completely empty your bladder. Pain when you pass urine. This is more common if there is also an infection. Urinary tract infection (UTI). How is this diagnosed? This condition is diagnosed based on your medical history, a physical exam, and your symptoms. Tests will also be done, such as: A post-void bladder scan. This measures any amount of urine that may remain in your bladder after you finish urinating. A digital rectal exam. In a rectal exam, your health care provider checks your prostate by putting a lubricated, gloved finger into your rectum to feel the back of your prostate gland. This exam detects the size of your gland and any abnormal lumps or growths. An exam of your urine (urinalysis). A prostate specific antigen (PSA) screening. This is a blood test used to screen for prostate cancer. An ultrasound. This test uses sound waves [...] severity of your condition. Treatment may include: Observation and yearly exams. This may be the only treatment needed if your condition and symptoms are mild. Medicines to relieve your symptoms, including: ?Medicines to shrink the prostate. ?Medicines to relax the muscle of the prostate. Surgery in severe cases. Surgery may include: ?Prostatectomy. In this procedure, the prostate tissue is removed completely through an open incision or with a laparoscope or robotics. ?Transurethral resection of the prostate (TURP). In this procedure, a tool is inserted through the opening at the tip of the penis (urethra). It is used to cut away tissue of the inner core of the prostate. The pieces are removed through the same opening of the penis. This removes the blockage. ?Transurethral incision (TUIP). In this procedure, small cuts are made in the prostate. This lessens the prostate's pressure on the urethra. ?Transurethral microwave thermotherapy (TUMT). This procedure uses microwaves to create heat. The heat destroys and removes a small amount of prostate tissue. ?Transurethral needle ablation (TUNA). This procedure uses radio frequencies to destroy and remove a small amount of prostate tissue. ?Interstitial laser coagulation (ILC). This procedure uses a laser to destroy and remove a small amount of prostate tissue. ?Transurethral electrovaporization (TUVP). This procedure uses electrodes to destroy and remove a small amount of prostate tissue. ?Prostatic urethral lift. This procedure inserts an implant to push the lobes of the prostate away from the urethra. Follow these instructions at home: Take cowl-ufw-wjdhgwm and prescription medicines only as told by your health care provider. Monitor your symptoms for any changes. Contact your health care provider with any changes. Avoid drinking large amounts of liquid before going to bed or out in public. Avoid or reduce how much caffeine or alcohol you drink. Give yourself time when you urinate. Keep all follow-up visits. This is important. Contact a health care provider if: You have unexplained back pain. Your symptoms do not get better with treatment. You develop side effects from the medicine you are taking. Your urine becomes very dark or has a bad smell. Your lower abdomen becomes distended and you have trouble passing urine. Get help right away if: You have a fever or chills. You suddenly cannot urinate. You feel light-headed or very dizzy, or you faint. There are large amounts of blood or clots in your urine. Your urinary problems become hard to manage. You develop moderate to severe low back or flank pain. The flank is the side of your body between the ribs and the hip. These symptoms may be an emergency. Get help right away. Call 911. Do not wait to see if the symptoms will go away. Do not drive yourself to the hospital. Summary Benign prostatic hyperplasia (BPH) is an enlarged prostate that is caused by the normal aging process. It is not caused by cancer. An enlarged prostate can press on the urethra. This can make it hard to pass urine. This condition is more likely to develop in men older than 50 years. Get help right away if you suddenly cannot urinate. This information is not intended to replace advice given to you by your health care provider. Make sure you discuss any questions you have with your health care provider. Document Revised: 02/24/2022 Document Reviewed: 02/24/2022 [employer] Patient Education 2023 prollie. 05/16/2025 12:00:38 Acute Urinary Retention, Male Acute Urinary Retention, Male Acute urinary retention is a condition in which a person is unable to pass urine or can only pass alittle urine. This condition can happen suddenly and last for a short time. If left untreated, it can become long-term (chronic) and result in kidney damage or other serious complications. What are the causes? This condition may be caused by: Obstruction or narrowing of the tube that drains the bladder (urethra). This may be caused by surgery, problems with nearby organs, or injury to the bladder or urethra. Problems with the nerves in the bladder. Tumors in the area of the pelvis, bladder, or urethra. Certain medicines. Bladder or urinary tract infection. Constipation. What increases the risk? This condition is more likely to develop in older men. As men age, their prostate may become largerand may start to press or squeeze on the bladder or the urethra. Other chronic health conditions can increase the risk of acute urinary retention. These include: Diseases such as multiple sclerosis. Spinal cord injuries. Diabetes. Degenerative cognitive conditions, such as delirium or dementia. Psychological conditions. A man may hold his urine due to trauma or because he does not want to usethe bathroom. What are the signs or symptoms? Symptoms of this condition include: Trouble urinating. Pain in the lower abdomen. How is this diagnosed? This condition is diagnosed based on a physical exam and your medical history. You may also have other tests, including: An ultrasound of the bladder or kidneys or both. Blood tests. A urine analysis. Additional tests may be needed, such as a CT scan, MRI, and kidney or bladder function tests. How is this treated? Treatment for this condition may include: Medicines. Placing a thin, sterile tube (catheter) into the bladder to drain urine out of the body. This is called an indwelling urinary catheter. After it is inserted, the catheter is held in place with a small balloon that is filled with sterile water. Urine drains from the catheter into a collection bag outside of the body. Behavioral therapy. Treatment for other conditions. If needed, you may be treated in the hospital for kidney function problems or to manage other complications. Follow these instructions at home: Medicines Take bhpd-hmx-kxwsdks and prescription medicines only as told by your health care provider. Avoid certain medicines, such as decongestants, antihistamines, and some prescription medicines. Do not take any medicine unless your health care provider approves. If you were prescribed an antibiotic medicine, take it as told by your health care provider. Do notstop using the antibiotic even if you start to feel better. General instructions Do not use any products that contain nicotine or tobacco. These products include cigarettes, chewing tobacco, and vaping devices, such as e-cigarettes. If you need help quitting, ask your health careprovider. Drink enough fluid to keep your urine pale yellow. If you have an indwelling urinary catheter, follow the instructions from your health care provider. Monitor any changes in your symptoms. Tell your health care provider about any changes. If instructed, monitor your blood pressure at home. Report changes as told by your health care provider. Keep all follow-up visits. This is important. Contact a health care provider if: You have uncomfortable bladder contractions that you cannot control (spasms). You leak urine with the spasms. Get help right away if: You have chills or a fever. You have blood in your urine. You have a catheter and the following happens: ?Your catheter stops draining urine. ?Your catheter falls out. Summary Acute urinary retention is a condition in which a person is unable to pass urine or can only pass alittle urine. If left untreated, this condition can result in kidney damage or other serious complications. An enlarged prostate may cause this condition. As men age, their prostate gland may become larger and may press or squeeze on the bladder or the urethra. Treatment for this condition may include medicines and placement of an indwelling urinary catheter. Monitor any changes in your symptoms. Tell your health care provider about any changes. This information is not intended to replace advice given to you by your health care provider. Make sure you discuss any questions you have with your health care provider. Document Revised: 04/29/2021 Document Reviewed: 04/29/2021 [employer] Patient Education 2023 prollie. Follow Up Care 05/09/2025 12:44:53 With:CLINT CHAVIS, Ethan Phillips, URL Address: [address] [place] [address]- When: Unknown Comments:[facility] 09-25-2025 NotePatient Education Urology Benign Prostatic Hyperplasia Benign prostatic hyperplasia (BPH) is an enlarged prostate gland that is caused by the normal agingprocess. The prostate may get bigger as a man gets older. The condition is not caused by cancer. The prostate is a walnut-sized gland that is involved in the production of semen. It is located in front of the rectum and below the bladder. The bladder stores urine. The urethra carries stored urine ou t of the body. An enlarged prostate can press on the urethra. This can make it harder to pass urine. The buildup of urine in the bladder can cause infection. Back pressure and infection may progress to bladder damage and kidney (renal) failure. What are the causes? This condition is part of the normal aging process. However, not all men develop problems from thiscondition. If the prostate enlarges away from the [...] this procedure, a tool is inserted through theopening at the tip of the penis (urethra). [...] procedure uses radio frequencies to destroy and removea small amount of prostate tissue. ? Interstitial laser coagulation (ILC). This procedure uses a laser to destroy and remove a small amount of prostate tissue. ? Transurethral electrovaporization (TUVP). This procedure uses electrodes to destroy and remove a small amount of prostate tissue. ? Prostatic urethral lift. This procedure inserts an implant to push the lobes of the prostate awayfrom the urethra. Follow these instructions at home: ??? Take hurd-cry-piivkmm and prescription medicines only as told by [...] pain. ??? Your symptoms do not get (more content not included)...[facility]08-13-2025 NoteHNO ID: [id number] Author: LYDIA DRAKE PA-C Service: ? Author Type: Physician Insurance Service Representative Type: Progress Notes Filed: 04/03/2025 08:41 Note [...] PCP for dizziness/blurriness Anticipated surgical procedure: none [facility] History of Present illness Narrative* Lydia Drake PA-C - 04/03/2025 8:29 AM [...] none Lydia Drake PA-C documented [facility] History of Present illness Narrative* Lydia Drake PA-C - 04/02/2025 11:30 AM EDT COLORECTAL SURGERY VIRTUAL VISIT FOLLOW UP 04/02/2025 I have communicated my name and active licensure. The patient's identity and physical location wereverified at the time of this visit. Either the patient or their legal registration representative has been informed of the risks [...] February 28, 2025. He was referred to [facility] for anorectal manometry by Dr. Brady for [...] laxatives and stool softeners; consider referral to [facility] if unable to see local GI anymore ( was told that [facility] would be managing him from [...] evaluate and manage orthostatic symptoms. Recording using XAircraft software for draft documentation of the visit was discussed with the patient/authorized registration representative; all questions welcomed and answered. Patient/authorized registration representative agreed to proceed JAME Segundo I spent a total of 33 minutes on the date of the service which included preparing to see the patient, ohcm-so-nnpg patient care, completing clinical documentation, obtaining and/or reviewing separately obtained history, performing a medically appropriate examination, counseling and educating the pat ient/family/caregiver, communicating with other HCPs (not separately reported), and care coordination (not separately reported). documented in this encounterParkview Health08-12-2025 NoteHNO ID: [id number] Author: LYDIA DRAKE PA-C Service: ? Author Type: Physician Insurance Service Representative Type: Progress Notes Filed: 04/02/2025 12:17 Note Text: COLORECTAL SURGERY VIRTUAL VISIT FOLLOW UP 04/02/2025 I have communicated my name and active licensure. The patient's identity and physical location were verified at the time of this visit. Either the patient or their legal registration representative has been informed of the risks [...] February 28, 2025. He was referred to [facility] for anorectal manometry by Dr. Brady for [...] previous trials of Trulanc (more content not included)...[facility]07-17-2025 Telephone encounter Note* Telephone Encounter - Lydia Drake PA-C - 03/07/2025 1:37 PM EDT Called patient back. He reports: He notes [...] ED with worsening sx. Lydia Drake PA-C [facility]07-17-2025 Miscellaneous Notes* Telephone Encounter - Lydia Drake PA-C - 03/07/2025 1:37 PM EDT Called patient back. He reports: He notes [...] ED with worsening sx. Lydia Drake PA-C * Telephone Encounter - Sterling Gonzalez - 03/07/2025 1:22 PM EDT Chai Arnold - [phone] Patient contacted the office regarding the baclofen that was prescribed to him. He reported that his back is feeling tighter than before and believes that a taking all these different medications maybe causing this side effect. Unsure on what he should do. documented in this encounterParkview Health07-17-2025 Telephone encounter Note * Telephone Encounter - Sterling Gonzalez - 03/07/2025 1:22 PM EDT Chai Arnold - [phone] Patient contacted the office regarding the baclofen that was prescribed to him. He reported that his back is feeling tighter than before and believes that a taking all these different medications maybe causing this side effect. Unsure on what he should do. [facility]07-10-2025 Instructions* Patient Instructions* Lydia Drake PA-C - 02/28/2025 1:31 PM EDT We discussed your chronic constipation and pelvic floor dysfunction: - I recommend starting baclofen suppositories, a muscle relaxer, to help with spasms and pain. Use one suppository as needed, up to twice daily. [facility] [place]. - Begin pelvic floor physical therapy to improve muscle coordination and relaxation. I will provideyou with websites where you can search for [...] cream prescribed by your previous provider, please contactthe pharmacy for clarification. We discussed your abdominal and rectal pain: - Continue with your current bowel regimen to maintain soft, mushy stools, as this is necessary formanaging pelvic floor dysfunction. Avoid straining during bowel [...] for you. To make an appointment through [facility] call : [phone] If you are not close to a [facility] location, you can visit any one of these sites. Just [facility] in and Pelvic Floor Physical Therapy places near you will populate. - [email or web address] - [email or web address] - [email or web address]:// [email or web address] - [email or web address] documented in this encounterParkview Health07-10-2025 History and physical note * Lydia Drake PA-C - 02/28/2025 1:00 PM EDT PELVIC FLOOR COLON & RECTAL SURGERY Reason for visit: Review anorectal manometry and EMG results History of Present Illness: Chai Arnold is a 54 year old MALE who was seen at the request of Dr. Brayd for anorectal manometry testing, rectal sensation testing and EMG recruitment. Mr. Arnodl was referred for testing due tosymptoms of constipation with outlet dysfunction . BEING [...] not relieve the sensation of incomplete evacuation. Currently,he has bowel movements every couple of days, with a mushy consistency, and must strain to defecate.He denies any episodes of stool leakage or [...] a compounded preparation from a pharmacy in [place], and previously used hydrocortisone. He has not undergone formal pelvic floor physical therapy. He expresses significant distress and frustration regarding the impact of his symptoms on his quality of life, stating that he is unable to work due to fear of frequent, urgent bowel movements and isconcerned about his ability to attend school, as [...] 55 cm and removed with cold biopsy. A2nd larger 5 mm sessile polyp was noted [...] Weak - Relaxation on pushing: Minimal - Pick And Shovel Worker Present: Yes Pick And Shovel Worker present: Yes, Arabella Assessment Anorectal Physiology tests [...] has not gotten anywhere. We discussed it cantake trial, error and time to notice improvement [...] which included preparing to see the patient, pyst-kv-yctq patient care, completing clinical documentation, obtaining and/or reviewing separately obtained history, performing a medically appropriate examination, counseling and educating the pat ient/family/caregiver, ordering medications, tests, or procedures, communicating with other HCPs (not separately reported), independently interpreting results (not separately reported), and communicating results to the patient/family/caregiver. Recording using XAircraft software for draft documentation of the visit was discussed with the patient/authorized registration representative; all questions welcomed and answered. Patient/authorized registration representative agreed to proceed [facility]07-10-2025 History and physical note* Lydia Drake PA-C - 02/28/2025 1:00 PM EDT PELVIC FLOOR COLON & RECTAL SURGERY Reason for visit: Review anorectal manometry and EMG results History of Present Illness: Chai Arnold is a 54 year old MALE who was seen at the request of Dr. Brady for anorectal manometry testing, rectal sensation testing and EMG recruitment. Mr. Arnold was referred for testing due tosymptoms of constipation with outlet dysfunction . BEING [...] not relieve the sensation of incomplete evacuation. Currently,he has bowel movements every couple of days, with a mushy consistency, and must strain to defecate.He denies any episodes of stool leakage or [...] a compounded preparation from a pharmacy in [place], and previously used hydrocortisone. He has not undergone formal pelvic floor physical therapy. He expresses significant distress and frustration regarding the impact of his symptoms on his quality of life, stating that he is unable to work due to fear of frequent, urgent bowel movements and isconcerned about his ability to attend school, as [...] 55 cm and removed with cold biopsy. A2nd larger 5 mm sessile polyp was noted [...] Weak - Relaxation on pushing: Minimal - Pick And Shovel Worker Present: Yes Pick And Shovel Worker present: Yes, Arabella Assessment Anorectal Physiology tests [...] has not gotten anywhere. We discussed it cantake trial, error and time to notice improvement [...] which included preparing to see the patient, xyvn-ou-tsit patient care, completing clinical documentation, obtaining and/or reviewing separately obtained history, performing a medically appropriate examination, counseling and educating the pat ient/family/caregiver, ordering medications, tests, or procedures, communicating with other HCPs (not separately reported), independently interpreting results (not separately reported), and communicating results to the patient/family/caregiver. Recording using XAircraft software for draft documentation of the visit was discussed with the patient/authorized registration representative; all questions welcomed and answered. Patient/authorized registration representative agreed to proceed documented in this encounterParkview Health06-30-2025 Evaluation note* Diagnosis Onset Date Resolution Status Admit Date Fracture of fifth metatarsal bone of rig ht foot acuteJune 2024 1:30pmFracture of fifth metatarsal bone of right footacute March 13, 2025 3:11pm [facility] Work Phone: 1(657) 398-340706-30-2025 Evaluation note* Diagnosis Onset Date Resolution Status Admit Date Fracture of fifth metatarsal bone of rig ht foot acuteJune 2024 1:30pmFracture of fifth metatarsal bone of right footacute March 13, 2025 3:11pmFracture of fifth metatarsal bone of right footacuteAugust 2024 9:12amOther specified postprocedural statesnoneactiveAugust 2024 9:12am [facility] Work Phone: 1(976) 512-389506-23-2025 Telephone encounter Note* Telephone Encounter - Chelle Christianson - 02/11/2025 9:38 AM EDT Recevied referral from [facility] fot pt referral for botox injections [facility]06-23-2025 Miscellaneous Notes* Telephone Encounter - Chelle Christianson - 02/11/2025 9:38 AM EDT Recevied referral from Satish Left fot pt referral for botox injections documented in this encounterParkview Health05-12-2025 Miscellaneous Notes* Telephone Encounter - Linda Marc CMA - 12/31/2024 9:34 AM EDT I called and left message for pt to call back. Regarding his referral to Gastroenterology. George Alcaraz is retired. * Telephone Encounter - Barbara De La Torre CMA - 12/31/2024 9:34 AM EDT Can we send referral to Dr. Moreno in [place] documented [facility] Telephone encounter Note* Telephone Encounter - Linda Marc CMA - 12/31/2024 9:34 AM EDT I called and left message for pt to call back. Regarding his referral to Gastroenterology. George Alcaraz is retired. [facility]05-12-[facility] Telephone encounter Note* Telephone Encounter - Barbara De La Torre CMA - 12/31/2024 9:34 AM EDT Can we send referral to Dr. Moreno in [place] [facility]04-28-20[facility] Miscellaneous Notes* Telephone Encounter - Barbara De La Torre CMA - 12/17/2024 3:24 PM EDT Patient called and stated he missed his apt in [place] with jaylyn/ent so they will not see him anymore. Can you refer him to someone else. * Telephone Encounter - Cisco Bonilla DO - 12/17/2024 3:24 PM EDT Okay. I sent another referral this time to a manager account management in [place] -Dr. Alcaraz. If he can [...] routine to do. documented in [facility] encounterMem[facility]04-28-2025 Telephone encounter Note* Telephone Encounter - Barbara De La Torre CMA - 12/17/2024 3:24 PM EDT Patient called and stated he missed his apt in [place] with jaylyn/ent so they will not see him anymore. Can you refer him to someone else. [facility]04-28-20[facility] Telephone encounter Note* Telephone Encounter - Cisco Bonilla DO - 12/17/2024 3:24 PM EDT Okay. I sent another referral this time to a manager account management in [place] -Dr. Alcaraz. If he can [...] which is usually routine to do. [facility]04-21-2025 History of Present illness Narrative* [...] reveal any inflammatory bowel disease. Thegastroenterologist in [place] did not want to see him. He [...] appear clear Nose: Nose normal. Mouth/Throat: Lips: [place]. Mouth: Mucous membranes are moist. Dentition: Abnormal [...] and irritable bowel syndrome. 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 documented in this encounterMem[facility] Hospital02-05-2025 Miscellaneous Notes* Telephone Encounter - Marisa Reinoso - 09/26/2024 2:19 PM EST New Patient NS 09/26/2024 * Telephone Encounter - Suki Islas RN - 09/26/2024 2:19 PM EST Discharge entered documented in this [facility]02-05-2025 Telephone encounter Note* Telephone Encounter - Marisa Reinoso - 09/26/2024 2:19 PM EST New Patient NS 09/26/2024 [facility] Telephone encounter Note* Telephone Encounter - Suki Islas RN - 09/26/2024 2:19 PM EST Discharge entered [facility]01-22-20[facility] Miscellaneous Notes* Telephone Encounter - Betty Wild - 09/12/2024 2:21 PM EST ttys office is refusing to see him since [...] a referral to a different gastro. Also [facility] Nurse Danuta was rude and getting an [...] Send a referral to GI specialist at [facility] documented in this encounterMem[facility] Hospital01-22-2025 Telephone encounter Note* Telephone Encounter - Betty Wild - 09/12/2024 2:21 PM EST Tiffanyys office is refusing to see him since [...] we referred him to a specialist [facility]01-22-2025 Telephone encounter Note* Telephone Encounter - [facility] Torri - 09/12/2024 2:21 PM EST Can we get this as an urgent referral [facility]01-22-2025 Telephone encounter Note* Telephone Encounter - Cisco Bonilla DO - 09/12/2024 2:21 PM EST Send a referral to GI specialist at [facility]-20[facility] Miscellaneous Notes* Telephone Encounter - [facility] - 09/12/2024 1:47 PM EST Patient called, metamucil is not covered by insurance but they will cover benifiber 240g [facility] [place] documented in this encounterMemorial Hospital01-22-2025 Telephone encounter Note* Telephone Encounter - Bettygeorge Wild - 09/12/2024 1:47 PM EST Patient called, metamucil is not covered by insurance but they will cover benifiber 240g [facility] [place] [facility] History of Present illness Narrative* Cisco [...] have an appointment coming up with a manager account management in September. He had to cancel his last appointment because he was having diarrhea and was afraid to leave the house because he might have an accident. The ER did give him Bentyl which did help. He did not think that less than helped at all. He stopped the FiberCon because it was not helping. He would rather have Metamucil. He called the manager account management office and they suggested a cleaned out. [...] Exam Vitals reviewed. Exam conducted with a payroll processor present (Leilani Han MS 3). Constitutional: General: [...] mouth in the morning. documented in this [facility]08-14-2024 Miscellaneous Notes* Telephone Encounter - Betty Wild - 04/04/2024 10:24 AM EDT ----- Message from Dr. Cisco Bonilla DO sent at 03/15/2024 7:03 PM EDT ----- Regarding: GI/BP recheck Please set up * Telephone Encounter - Betty Wild - 04/04/2024 10:24 AM EDT Mailbox full * Telephone Encounter - Betty Wild - 04/04/2024 10:24 AM EDT Scheduled documented in this encounterMem[facility] Hospital08-14-2024 Telephone encounter Note* Telephone Encounter - Betty Wild - 04/04/2024 10:24 AM EDT ----- Message from Dr. Cisco Bonilla DO sent at 03/15/2024 7:03 PM EDT ----- Regarding: GI/BP recheck Please set up [facility]08-14-20[facility] Telephone encounter Note* Telephone Encounter - Bettygeorge Wild - 04/04/2024 10:24 AM EDT Mailbox full [facility] Telephone encounter Note* Telephone Encounter - Bettygeorge Wild - 04/04/2024 10:24 AM EDT Scheduled [facility]07-25-[facility] History of Present illness Narrative* [...] was getting liquidy stools-6 and 7 on Lyman stool scale. He used fiber supplement in [...] mostly liquidy now. He has been to [facility] 3 times. He was given something for [...] for pain (cramping). documented in this encounterMemorial Hospital06-24-2024 Miscellaneous Notes* Telephone Encounter - Betty Wild - 02/13/2024 12:02 PM EDT Patient said suflave is 130 dollars, is there something else he can try or a coupon to use * Telephone Encounter - Linda Marc CMA - 02/13/2024 12:02 PM EDT Pt has medicaid My Bad Please SEND in the SUPREP. . * Telephone Encounter - Ty Acharya DO - 02/13/2024 12:02 PM EDT Message noted. The only prep that is covered is the old fashioned Golytely prep * Telephone Encounter - Gloria Rodriguez CMA - 02/13/2024 12:02 PM EDT He is Medicaid so whatever his insurance covers * Telephone Encounter - Ty Acharya DO - 02/13/2024 12:02 PM EDT Message noted. Rx for GoLYTELY sent to pharmacy documented in this encounterMemorial Hospital06-24-2024 Telephone encounter Note* Telephone Encounter - Betty Wild - 02/13/2024 12:02 PM EDT Patient said suflave is 130 dollars, is there something else he can try or a coupon to use [facility]06-24-[facility] Telephone encounter Note* Telephone Encounter - Linda Marc CMA - 02/13/2024 12:02 PM EDT Pt has medicaid My Bad Please SEND in the SUPREP. . [facility]06-24-20[facility] Telephone encounter Note* Telephone Encounter - Ty Acharya DO - 02/13/2024 12:02 PM EDT Message noted. The only prep that is covered is the old fashioned Golytely prep [facility]06-24-2024 Telephone encounter Note* Telephone Encounter - Gloria Rodriguez CMA - 02/13/2024 12:02 PM EDT He is Medicaid so whatever his insurance covers [facility]-24-[facility] Telephone encounter Note* Telephone Encounter - Ty Acharya DO - 02/13/2024 12:02 PM EDT Message noted. Rx for GoLYTELY sent to pharmacy [facility]06-11-2024 Miscellaneous Notes* Telephone Encounter - Barbara De La oTrre CMA - 01/31/2024 3:09 PM EDT Patient [...] Left message via documented in this encounterMemorial Hospital06-11-2024 Telephone encounter Note* Telephone Encounter - Barbara De La Torre CMA - 01/31/2024 3:09 PM EDT Patient called and was in the ER for Urinary re tension. His bowel movements ar still not good. Since I can not get him in for an ER follow up soon what do you suggest he do? He does see urology on [facility]06-11-2024 Telephone encounter Note* Telephone Encounter - Cisco Bonilla DO - 01/31/2024 3:09 PM EDT He can use MiraLax 17 g in 8 oz of water daily [facility]06-11-2024 Telephone encounter Note* Telephone Encounter - Barbara De La Torre CMA - 01/31/2024 3:09 PM EDT Left message via VM [facility]04-19-2024 History of Present illness Narrative* SYLVESTER Levin - 12/09/2023 9:00 AM EDT [address] [facility] [id number] Patient: Chai Arnold Date of : 1970 [...] softeners pencilthin like a 4. On the Lyman stool scale and he has tried Metamucil and MiraLax. He denies any hemorrhoids or blood in his stool. His last colonoscopy was 4 years ago that showed polyps and diverticulosis and he knows he is due for another colonoscopy next year. Patient has been struggling with weaning off his Xanax. 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) Past Medical, Family, and Social History Update: The following portions of the patient's history were reviewed and updated as appropriate: allergies, current medications, past family history, past medical history, past social history, past surgicalhistory and problem list. 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) Other orders - omeprazole (PriLOSEC) [...] office. Resources such as Sub[facility] in [place] were given. It was also recommended that he apply at [facility] for primary care services and [...] does not improve. SYLVESTER LEVIN APRN-CNP 12/09/23 [id number] documented in this encounterSt. Mary's Medical CenterTablelist Inc [facility] [id number] Evaluation note* Encounter Date Diagnosis Assessment Notes Treatment Notes Treatment Clinical Notes Aug, Contact with and (flores spected) exposure to other viral communicable diseases (ICD-10 - Z20.828) covid test pos, see above. Aug,OVID (ICD-10 - U07.1) Covid test pos in [...] worsening SOB, wheeze, dyspnea, difficulty swallowing or breathing,and chest pain. Go straight to ER for [...] Pt understood and agreed to tx plan. Aug,ther Additional time spent conducting pre-visit phone call, screening for symptoms, instructions on social distancing, application and removal of PPE, and cleaning of examination room, equipment and supplies was preformed. Patient education given for testing methodology and results. Patient care instructions given in writting by [facility] document. [facility] Other 12-21-2021 Evaluation note* Encounter Date Diagnosis Assessment Notes Treatment Notes Treatment Clinical Notes Jul, Contact with and (flores spected) exposure to other viral communicable diseases (ICD-10 [...] is performed too soon. It is recommended thateven if results are negative and you have been exposed to someone that has COVID that you follow current CDC recommendations. These can be found at CDC.GOV. Follow up with primary care provider if symptoms persist or do not improve *VIRAL URI HANOUT GIVEN ON OTC TREATMENTS, FOLLOW UP AND WHEN TO SEEK EMERGENCY TREATMENT Jul,Other Additional time spent conducting pre-visit phone call, screening for symptoms, instructions on social distancing, application and removal of PPE, and cleaning of examination room, equipment and supplies was preformed. Patient education given for testing methodology and results. Patient care instructions given in writting by [facility] Care At Home document. Versus Other Evaluation + Plan note Future Appointments Appointment Date:04/03/2024 01:00:00 PM Scheduled Provider:JOSEPH Allen APRN, [place] X Location:[facility] Appointment Type:URO Office Visit [facility] Evaluation + Plan note Future Appointments Appointment Date:04/11/2025 10:45:00 AM Scheduled Provider:Vivian Brady MD Location[place] [place] Appointment Type:BADH Follow Up [facility] Evaluation + Plan note Future Appointments Appointment Date:05/16/2025 11:00:00 AM Scheduled Provider:JOSEPH Allen APRN, [place] X Location:[facility] Appointment Type:URO Complex Office Visit [facility] Evaluation + Plan note Future Appointments Appointment Date:05/23/2025 01:30:00 PM Scheduled Provider: Location:[facility] Appointment Type:URO Nurse Visit Appointment Date:06/04/2025 02:00:00 PM Scheduled Provider:Ethan JARAMILLO MD Location:[facility] Appointment Type:URO Procedure 15 min [facility] evaluation + Plan note Future Appointments Appointment Date:05/27/2025 12:30:00 PM Scheduled Provider:Vivian Brady MD Location:[facility] [place] Appointment Type:BADH Follow Up Appointment Date:06/04/2025 02:00:00 PM Scheduled Provider:Ethan JARAMILLO MD Location:[facility] [place] Appointment Type:URO Procedure 15 min [facility] evaluation + Plan note Future Appointments Appointment Date:06/04/2025 02:00:00 PM Scheduled Provider:Ethan JARAMILLO MD Location:[facility] Appointment Type:URO Procedure 15 min [facility] Evaluation noteNo assessment information available [facility] Work Phone: Evaluhttfk note* Diagnosis Irritable bowel syndrome with both constipation and diarrhea- Primary Essential hypertension, benign Anxiety Anxiety state, unspecified Encounter for screening for malignant neoplasm of prostate documented [facility] Diagnosis Irritable bowel syndrome with both constipation and diarrhea- Primary documented [facility]* Diagnosis Irritable bowel syndrome with constipation- Primary Irritable bowel syndrome Gastroesophageal reflux disease, unspecified whether esophagitis present 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 Diagnosis Change in bowel habits- Primary Other symptoms involving digestive system Polyp of colon, unspecified part of colon, unspecified type documented in this encounter [facility]* Diagnosis Irritable bowel syndrome with both constipation and diarrhea- Primary Umbilical hernia without obstruction and without gangrene Incisional hernia, without obstruction or gangrene Anal fissure documented in this [facility]* Diagnosis Well adult exam- Primary Routine general medical examination at a health care facility Anxiety Anxiety state, unspecified Overweight Iron overload Disorders of iron metabolism Encounter for screening for malignant neoplasm of prostate Ex-smoker Personal history of tobacco use, presenting hazards to health Hypogonadism in male Severe episode of recurrent major depressive disorder, without psychotic features ([facility]) Irritable bowel syndrome with both constipation and diarrhea [facility]* Diagnosis Anal fissure- Primary [facility] Diagnosis Irritable bowel syndrome with both constipation and diarrhea- Primary [facility] Diagnosis Chronic idiopathic constipation- Primary Unspecified constipation Hepatitis C virus infection without hepatic coma, unspecified chronicity [facility]* Diagnosis 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 Outlet dysfunction constipation Stress-related physiological response affecting medical condition Psychic factors associated with diseases classified elsewhere [facility] this [facility]* Diagnosis Onset Date Resolution Status Admit Date Fracture of fifth metatarsal bone of rig ht foot acuteJune 2024 1:30pm [facility] Work Phone: Evaluation note* Diagnosis Pelvic floor dysfunction Pelvic muscle wasting Pelvic floor dysfunction- Primary Pelvic muscle wasting Rectal spasm Anal spasm Constipation, unspecified constipation type documented in this encounter [facility] note* Diagnosis Pelvic floor dysfunction- Primary Pelvic muscle wasting Rectal spasm Anal spasm Constipation, unspecified constipation type documented in this [facility]* Diagnosis Anxiety Anxiety state, unspecified [facility]* Diagnosis Constipation, unspecified constipation type- Primary Rectal spasm Anal spasm Pelvic floor dysfunction Pelvic muscle wasting Anxiety Anxiety state, unspecified Distressed about housing issues Other specified housing or economic circumstances Orthostatic dizziness documented in this encounter [facility] note* Diagnosis Rectal spasm- Primary Anal spasm Constipation, unspecified constipation type Pelvic floor dysfunction Pelvic muscle wasting Anxiety Anxiety state, unspecified Chronic abdominal pain Abdominal pain, unspecified site Chronic rectal pain Anal or rectal pain documented in this [facility]* Diagnosis Anal fissure- Primary documented in this encounter [facility] Narrative - Reported* Type Description Date Medical History insomnia Medical HistoryanxietyMedical HistoryHTNSurgical Historyappendix removedSurgical Historycompartment syndrome left [id number] Historysee surgical hx Versus Other Hospital course Narrative No data available for this section [facility] [place] Hospital Discharge instructions Additional Instructions Wear leg bag with [place] catheter Follow-up with urology [facility] if [facility] are [facility] Work Phone: Hospital Discharge instructions No data available for this section [facility] Hospital Discharge instructions Additional Instructions Dr. [...] wearing your boot. You may take NSAIDs/Tylenol [id number] as indicated on the bottle. You should [...] be scheduled with Dr. Avina's office at [facility]. At your follow-up we will remove your splint and sutures. Please call to confirm your follow-up appointment. Dr. Ehsan Avina [facility] [address] [place] [address] [facility] Work Phone: Instructions* Attachments The following attachments cannot be sent through Care Everywhere. * IBS Diet (Uzbek) documented in this encounterProMedica Health SystemInstructionsNot on file documented in this encounterProCrescendo Biologics Health SystemInstructionsNot on file documented in this encounterProRedFlag Software SystemInstructionsNot on file documented in this encounterProMediTablelist Inc Health SystemInstructionsNot on file documented in this encounterProSalem City HospitalSourceTrace Systems SystemInstructionsNot on file documented in this encounterProSalem City HospitalTablelist Inc Health SystemInstructionsNot on file documented in this encounterProSalem City HospitalTablelist Inc Health SystemInstructionsNot on file documented in this encounterProSalem City Hospitalca Health SystemInstructionsNot on file documented in this [...] available for this section [facility] [place] Reason for referral (narrative)* Medication Prior Authorization - Pending ReviewSpecialtyDiagnoses / ProceduresReferred By ContactReferred To Contact Cisco Bonilla DO [address], [facility] [place] [address] Phone: tel: fax: Referral IDStatusReasonStart DateExpiration DateVisits RequestedVisits [id number] [facility] SystemReason for referral (narrative)* Medication Prior Authorization - Pending ReviewSpecialtyDiagnoses / ProceduresReferred By ContactReferred To Contact Cisco Bonilla DO [address], [facility] [place] [address] Phone: tel: fax: Referral IDStatusReasonStart DateExpiration DateVisits RequestedVisits [id number] [facility] SystemReason for referral (narrative)* Medication Prior Authorization - Pending ReviewSpecialtyDiagnoses / ProceduresReferred By ContactReferred To Contact Cisco Bonilla DO [address] [facility], [facility] [place] [address] Phone: tel: fax:[phone] Referral IDStatusReasonStart DateExpiration DateVisits RequestedVisits [id number] [id number] [facility] for referral (narrative)No reason for referral information available[facility] Work Phone: Summary Purpose Family History No Family History Records Found Relationship Condition Age at Onset Recorded Date/T amanuel father Heart disease Unknown motherRheumatoid arthritisUnknown Advance Directives No Advanced Directives Records Found Advance Directive Response Recorded Date/ Time Advance Directives No July 3:32pm Date ActivatedDate InactivatedComments03/04/2021 9:32 AM03/10/2021 10:20 PMDate ActivatedDate InactivatedComments01/16/2018 1:54 PM01/17/2018 3:11 PMDate ActivatedDate InactivatedComments03/04/2021 9:32 AM03/10/2021 10:20 PMDate ActivatedDate InactivatedComments01/16/2018 1:54 PM01/17/2018 3:11 PM Chief Complaint and Reason for [...] Au amina 2024 9:12am Reason for Referral SpecialtyDiagnoses / ProceduresReferred By ContactReferred To Contact Cisco Bonilla DO [address], [place] [address] Referral IDStatusReasonStart DateExpiration DateVisits RequestedVisits [id number] 1SpecialtyDiagnoses / ProceduresReferred By ContactReferred To Contact Diagnoses Change in bowel habits Polyp of colon, unspecified part of colon, unspecified type Procedures Colonoscopy Cisco Bonilla DO [address], [place] [address] Referral IDStatusReasonStart DateExpiration DateVisits RequestedVisits [id number] Review Additional Source Comments (unrecognized sect ion and content) No Status Records FoundNo Status Records FoundNo Status Records FoundNo Status Records FoundNo Status Records FoundNo Status Records FoundNo Status Records FoundNo Status Records FoundNo Status Records FoundNo Status Records Found INFORMATION SOURCE (unrecogn ized section and content) DATE CREATED AUTHOR 02/14/2018 [facility] DATE CREATED AUTHOR AUTHOR'S ORGANIZ ATION 03/29/2022 [facility] DATE CREATED AUTHOR AUTHOR'S ORGANIZ ATION 12/10/2024 [facility] DATE CREATED AUTHOR AUTHOR'S ORGANIZ ATION 12/11/2024 [facility] DATE CREATED AUTHOR AUTHOR'S ORGANIZ ATION 03/31/2025 [facility] DATE CREATED AUTHOR AUTHOR'S ORGANIZ ATION 04/03/2025 [facility] DATE CREATED AUTHOR AUTHOR'S ORGANIZ ATION 05/26/2025 [facility] DATE CREATED AUTHOR AUTHOR'S ORGANIZ ATION 06/07/2025 [facility] DATE CREATED AUTHOR AUTHOR'S ORGANIZ ATION 06/11/2025 [facility] REASON FOR VISIT (unrecogniz ed section and content) ReasonCommentsAbdominal PainReasonOnset DateCommentsMed Zgagxr7809/11/2024Reason CommentsChronic Bowel issuesReasonCommentsFollow-upReasonCommentsAnnual Exam ReasonOnset DateCommentsMed Sfcytr0012/12/2024ReasonCommentsMed Change Request ReasonOnset DateCommentsMed Waiypt2912/31/2024ReasonOnset DateCommentsMed Refill 01/26/2025ReasonCommentsMed Change RequestReasonOnset DateCommentsMed Refill 02/06/2025ReasonCommentsAppointmentLeft vm we received referral for botox injectionsReasonCommentsManometrySpecialtyDiagnoses / ProceduresReferred By ContactReferred To [facility] DISEASE BADEN Diagnoses Pelvic floor dysfunction Procedures [facility] ANORECTAL MANOMETRY ANORECTAL MANOMETRY Violette Maurer, STRUCTURAL ENGINEERING PROJECT MANAGER.LEVEL VIAL INSPECTOR [address] [place] [address] Phone: tel: fax: [facility] [address] [place] [address] Referral IDStatusReasonStart DateExpiration DateVisits RequestedVisits [id number] Auto-Generated Referral [id number] PatientPelvic floor dysfunctionSpecialty Diagnoses / ProceduresReferred By ContactReferred To [facility] Diagnoses Pelvic floor dysfunction Procedures [facility] ANORECTAL MANOMETRY ANORECTAL MANOMETRY Violette Maurer, STRUCTURAL ENGINEERING PROJECT MANAGER.LEVEL VIAL INSPECTOR [address] [place] [address] Phone: tel: fax: [facility] [address] [place] [address] Referral IDStatusReasonStart DateExpiration DateVisits RequestedVisits [id number] Auto-Generated Referral [id number] UpdateReasonOnset DateCommentsMed Tkhrza2503/22/2025ReasonCommentsEstablished PatientReasonCommentsPelvic Floor ConferenceReasonOnset DateCommentsMed Tadklz0305/13/2025 Care Teams (unrecognized sec tion and content) Team Status: Active Member Role Status Dates Cisco Bonilla DO Primary Care Provider Active Team Status: Inactive Member Role Status Dates Cisco Bonilla DO Primary Care Provider Active Start: January 29, 2024 End: January 30, 2024Rosalia Baltazar ProviderActiveStart: January 29, 2024 End: January 30, 2024 Team Status: Inactive Member Role Status Dates Cisco Bonilla DO Primary Care Provider Active Start: March 03, 2024 End: March 03DAYANNA Mack-Migdalia ProviderActiveStart: March 03, 2024 End: March 03, 2024Team MemberRelationshipSpecialtyStart DateEnd Date Cisco Bonilla DO [address], [place] [address] PCP - Generalmily Medicine12/19/19Team MemberRelationshipSpecialtyStart DateEnd Date Cisco Bonilla DO [address], [place] [address] [facility]/19Team MemberRelationshipSpecialtyStart DateEnd Date Cisco Bonilla DO [address], [place] [address] PCP - [facility] Medicine12/19/19am MemberRelationshipSpecialtyStart DateEnd Date Cisco Bonilla DO [address], [place] [address] [facility]12/19/19am MemberRelationshipSpecialtyStart DateEnd Date Cisco Bonilla DO [address], [place] [address] PCP - Generalmily Medicine12/19/19Team MemberRelationshipSpecialtyStart DateEnd Date Cisco Bonilla DO [address], [place] [address] PCP - [facility] Medicine12/19/19Team MemberRelationshipSpecialtyStart DateEnd Date Cisco Bonilla [address] [place] [address] PCP - GeneralFamily Medicine12/19/19am MemberRelationshipSpecialtyStart DateEnd Date ChadArleneCisco PaddyDO [address], [place] [address] PCP - GeneralFamily Medicine12/19/19am MemberRelationshipSpecialtyStart DateEnd Date ChadArleneCisco PaddyDO [address], [place] [address] PCP - Generalmily Medicine12/19/19 MemberRelationshipSpecialtyStart DateEnd Date Chad Cisco Thomason DO [address], [place] [address] PCP - Generalmily Medicine12/19/19am MemberRelationshipSpecialtyStart DateEnd Date Chad Cisco Thomason DO [address], [place] [address] PCP - GeneralFamily Medicine12/19/19 MemberRelationshipSpecialtyStart DateEnd Date Cisco Bonilla DO [address], [place] [address] PCP - GeneralFamily Medicine12/19/19am MemberRelationshipSpecialtyStart DateEnd Date Chad Cisco Thomason DO [address] [place] [address] PCP - GeneralFamily Medicine12/19/19Team MemberRelationshipSpecialtyStart DateEnd Date Cisco Bonilla DO [address], [place] [address] PCP - GeneralFamily Medicine12/19/19Team MemberRelationshipSpecialtyStart DateEnd Date Cisco Bonilla DO [address], [place] [address] PCP - GeneralFamily Medicine12/19/19Team MemberRelationshipSpecialtyStart DateEnd Date Cisco Bonilla [address], [place] [address] PCP - GeneralFamily Medicine12/19/19Team MemberRelationshipSpecialtyStart DateEnd Date Cisco Bonilla [address], [place] [address] PCP - GeneralFamily Medicine12/19/19Team MemberRelationshipSpecialtyStart DateEnd Date Cisco Bonilla [address], [place] [address] PCP - GeneralFamily Medicine12/19/19Team MemberRelationshipSpecialtyStart DateEnd Date Tyson Tolliver MD PCP - GeneralFamily Medicine11/11/15 Vivian Brady MD [address] [place] [address] Gastroenterology01/16/25Team MemberRelationshipSpecialtyStart DateEnd Date Cisco Bonilla DO [address] [facility] [place] [address] PCP - GeneralFamily Medicine12/19/19Team MemberRelationshipSpecialtyStart DateEnd Date Tyson Tolliver MD PCP - GeneralFamily Medicine11/11/15 Vivian Brady MD [address] [address] Gastroenterology01/16/25 Team Status: Inactive Member Role Status Dates Cisco Bonilla DO Primary Care Provider Active Start: February 18, 2025 End: February 18, 2025Juyumiko Avina DOAttending ProviderActiveStart: February 18, 2025 End: February 18, 2025Team MemberRelationshipSpecialtyStart DateEnd Date Tyson Tolliver MD PCP - GeneralFamily Medicine11/11/15 Vivian Brady MD [address] [address] Gastroenterology01/16/25Team MemberRelationshipSpecialtyStart DateEnd Date Tyson Tolliver MD PCP - GeneralFamily Medicine11/11/15 Vivian Brady MD [address] [address] Gastroenterology01/16/25Team MemberRelationshipSpecialtyStart DateEnd Date Tyson Tolliver MD PCP - [facility] Medicine11/11/15 Vivian Brady MD [address] [address] Gastroenterology01/16/25Team MemberRelationshipSpecialtyStart DateEnd Date Tyson Tolliver MD PCP - [facility] Medicine11/11/15 Vivian Brady MD [address] [address] Gastroenterology01/16/25 Team Status: Active Member Role Status Dates Cisco Bonilla DO Primary Care Provider Active Start: March 13, 2025 Emily Kim ProviderActiveStart: March 13, 2025 Team Status: Inactive Member Role Status Dates Cisco Bonilla DO Primary Care Provider Active Start: March 13, 2025 End: March 13, 2025JuEmily Angelo ProviderActiveStart: March 13, 2025 End: March 13, 2025 Team Status: Inactive Member Role Status Dates Cisco Bonilla DO Primary Care Provider Active Start: March 18, 2025 End: March 18, 2025Emily Kim ProviderActiveStart: March 18, 2025 End: March 18, 2025 Team Status: Active Member Role Status Dates Cisco Bonilla DO Primary Care Provider Active Start: March 12, 2025 Emily Kim ProviderActiveStart: March 12, 2025 Ehsan Avina DOOther ProviderActiveStart: March 12, 2025 Team Status: Inactive Member Role Status Dates Cisco Bonilla DO Primary Care Provider Active Start: March 19, 2025 End: March 19, 2025Juyumiko Avina DOAttending ProviderActiveStart: March 19, 2025 End: March 19, 2025Team MemberRelationshipSpecialtyStart DateEnd Date Cisco Bonilla Paddy [address] [facility] [place] [address] PCP - GeneralFamily Medicine12/19/19Team MemberRelationshipSpecialtyStart DateEnd Date Tyson Tolliver MD PCP - GeneralFamily Medicine11/11/15 Vivian Brady MD [address] [place] [id number] Gastroenterology01/16/25Team MemberRelationshipSpecialtyStart DateEnd Date Tyson Tolliver MD PCP - GeneralFamily Medicine11/11/15 Vivian Brady MD [address] [address] Gastroenterology01/16/25Team MemberRelationshipSpecialtyStart DateEnd Date Tyson Tolliver MD PCP - GeneralFamily Medicine11/11/15 Vivian Brady MD [address] [address] Gastroenterology01/16/25 Team Status: Inactive Member Role Status Dates Cisco Bonilla Primary Care Provider Active Start: April 08, 2025 End: April 08, 2025Ehsan Avina DOAttending ProviderActiveStart: April 08, 2025 End: April 08, 2025Team MemberRelationshipSpecialtyStart DateEnd Date Chad Cisco Paddy [address] [facility], [place] [address] PCP - GeneralFamily Medicine12/19/19 Goals (unrecognized section and content) Goals may be documented in a n alternate section Source Comments (unrecognize d section and content) In the event this informatio n is protected by the Federal Confidentiality of Alcohol and Drug Abuse Patient Records regulations: The Federal rules restrict any use of the information to criminally investigate or prosecute any alcohol or drug abuse patient.[facility] HealthIn the event this information is protected by the Federal Confidentiality of Alcohol and Drug Abuse Patient Records regulations: The Federal rules restrict any use of the information to criminally investigate or prosecute any alcohol or drug abuse patient.[facility] HealthIn the event this information is protected by the Federal Confidentiality of Alcohol and Drug Abuse Patient Records regulations: The Federal rules restrict any use of the information to criminally investigate or prosecute any alcohol or drug abuse patient.[facility] HealthIn the event this information is protected by the Federal Confidentiality of Alcohol and Drug Abuse Patient Records regulations: The Federal rules restrict any use of the information to criminally investigate or prosecute any alcohol or drug abuse patient.[facility] HealthIn the event this information is protected by the Federal Confidentiality of Alcohol and Drug Abuse Patient Records regulations: The Federal rules restrict any use of the information to criminally investigate or prosecute any alcohol or drug abuse patient.[facility] HealthIn the event this information is protected by the Federal Confidentiality of Alcohol and Drug Abuse Patient Records regulations: The Federal rules restrict any use of the information to criminally investigate or prosecute any alcohol or drug abuse patient.[facility] HealthIn the event this information is protected by the Federal Confidentiality of Alcohol and Drug Abuse Patient Records regulations: The Federal rules restrict any use of the information to criminally investigate or prosecute any alcohol or drug abuse patient.[facility] HealthIn the event this information is protected by the Federal Confidentiality of Alcohol and Drug Abuse Patient Records regulations: The Federal rules restrict any use of the information to criminally investigate or prosecute any alcohol or drug abuse patient.[facility] HealthIn the event this information is protected by the Federal Confidentiality of Alcohol and Drug Abuse Patient Records regulations: The Federal rules restrict any use of the information to criminally investigate or prosecute any alcohol or drug abuse patient.[facility] FOR RECORDS PERTAINING TO PATIENTS WHO ARE [...] BE BASED ON THE PRIMARY CLINICAL RECORDS. [employer] [facility]. provides no warranty or guarantee of the accuracy or completeness of information in this document.
--- OUTSIDE RECORDS SUMMARY | 2025-06-12 18:44 | XMS_ITS | Clinical Summary ---
Author Organization [facility] Healthcare Address [address] [place] [address] Care Team Providers Care Watermaster Name Role Phone Unavailable Primary Care Provider Unavailabl e Social History Tobacco UseTypesPacks/DayYears UsedDateSmoking Tobacco: Never AssessedSex and Gender InformationValueDate RecordedSex Assigned at BirthNot on fileLegal Sex Male11/03/2022 7:16 PM EDTGender IdentityNot on fileSexual OrientationNot on file Last Filed Vital Signs Vital SignReadingTime TakenCommentsBlood Pressure--Pulse--Temperature-- Respiratory Rate--Oxygen Saturation--Inhaled Oxygen Concentration--Udllyg84.8 kg (220 lb)07/29/2020 12:00 PM BJBYmymfj979.7 cm (5' 8 )07/29/2020 12:00 PM ESTBody Mass Index33.45109/29/2019 12:00 PM EST Plan of Treatment Not on file
--- OUTSIDE RECORDS SUMMARY | 2025-06-12 18:44 | XMS_ITS | Clinical Summary ---
Author Organization [facility] Address [address] [place] [address], [address] [place] [address] Care Team Providers Care Nursery Helper Name Role Phone Tyson Fonseca MD Primary Care Provider + Allergies No known active allergies Medications MedicationSigDispense QuantityRefillsLast FilledStart DateEnd DateStatus tamoxifen (NOLVADEX) 10 MG tablet Take 10 mg by mouth dailyActive testosterone cypionate (DEPOTESTOTERONE CYPIONATE) 100 MG/ML injection Inject 100 mg into the muscle twice a weekActive Social History Tobacco UseTypesPacks/DayYears UsedDateSmoking Tobacco: Every DayCigarettes Alcohol UseStandard Drinks/WeekCommentsNo0 (1 standard drink = 0.6 oz pure alcohol)Sex and Gender InformationValueDate RecordedSex Assigned at BirthNot on fileLegal CxrTqot17/18/2016 11:50 AM ESTGender IdentityNot on fileSexual OrientationNot on file Last Filed Vital Signs Vital SignReadingTime TakenCommentsBlood Pbmnlokr376/9007/09/2016 2:16 PM EST Rdwca123207/09/2016 2:16 PM EYCOyvjyyiutiv02.5 ??C (97.7 ??F)07/09/2016 11:57 AM ESTRespiratory Ivnu695109/08/2015 2:01 PM ESTOxygen Dhlqmoxzwa81%07/09/2016 2:01 PM ESTInhaled Oxygen Concentration--Lsbqfo56.1 kg (170 lb)07/09/2016 11:57 AM ESTHeight--Body Mass Index-- Plan of Treatment Not on file Care Teams Team MemberRelationshipSpecialtyStart DateEnd Date Tyson Fonseca MD [facility]07/09/16
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
[2025-06-12 18:49] VITALS: O2SAT 95
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
[2025-06-12 19:39] LABS: Hematocrit 44.2 % (42.0-54.0); Hemoglobin 15.8 g/dL (14.0-18.0); Immature Granulocytes Abs Auto 0.04 10^3/uL (0.00-0.03); Immature Granulocytes Pct Auto 0.4 % (0.0-0.5); Lymphocytes Absolute Auto 1.2 10^3/uL (1.2-3.8); Mean Corpuscular HGB Conc 35.7 g/dL (29.9-35.2); Mean Corpuscular Hemoglobin 32.2 pg (25.9-34.0); Mean Corpuscular Volume 90.2 fL (80.0-94.0); Platelet Count 206 10^3/uL (150-450); Red Blood Count 4.90 10^6/uL (4.70-6.10); White Blood Count 10.7 10^3/uL (4.0-11.0)
[2025-06-12 20:00] LABS: Alanine Aminotransferase 57 U/L (16-63); Albumin Globulin Ratio 1.4; Albumin Level 4.4 g/dL (3.4-5.0); Alkaline Phosphatase 155 U/L (46-116); Anion Gap 15.1; Aspartate Amino Transferase 137 U/L (15-37); Blood Urea Nitrogen 19.0 mg/dL (7.0-18.0); Calcium 9.8 mg/dL (8.5-10.1); Carbon Dioxide 26.4 mmol/L (21.0-32.0); Chloride 106 mmol/L (98-107); Estimated GFR (African America >60 (>=60 mL/min/1.73m^2); Estimated GFR (Non-African Ame 59 (>=60 mL/min/1.73m^2); Globulin 3.2 g/dL; Glucose 101 mg/dL (74-106); Potassium 3.5 mmol/L (3.5-5.1); Sodium 144 mmol/L (136-145); Total Protein 7.6 g/dL (6.4-8.2)
[2025-06-12] MEDS: 0.9 % SODIUM CHLORIDE 1,000 ML 1000 ML IV (20:23)
[2025-06-12] MEDS: DIPHTH,PERTUSS(ACELL),TET VAC 0.5 ML SYRINGE IM (20:24)
[2025-06-12 21:16] VITALS: BP 151/97; PULSE 117; O2SAT 96
== END 2025-06-12 21:22 | disposition home or self-care (01) ==
PROVIDERS: Emergency Provider Emergency Medicine; PCP Family Medicine
DX: S01.01XA Laceration without foreign body of scalp, initial encounter (principal); V43.52XA Car driver injured in collision with other type car in traffic accident, initial encounter; Z23 Encounter for immunization
CPT/HCPCS: 12001; 36415; 70450; 71045; 72125; 72170; 76376; 80053; 85025; 90471; 90715; 93005; 99285

== ENCOUNTER 2025-06-20 22:33 | Emergency (ER) | payer OTHER, SELFPAY ==
--- OUTSIDE RECORDS SUMMARY | 2024-03-07 20:00 | XMS_ITS | Continuity of Care Document ---
Author Organization [facility] Address [address] [place] [phone] Phone Care Team Providers Care Business Services Clerk Name Role Phone Diamond Savage Unavailable Unavailable Allergies, Adverse Reactions, Alerts Substance Reaction Status Criticality No Known Allergies Active No Inform ation Procedures Procedure Date Acute Detox Anesthesia Technician ROUTINE VENIPUNCTURE DRUG TEST PRSMV DIR OPT OBS Acute Detox Anesthesia Technician Acute Detox Anesthesia Technician Intraoral-complete Series (bw) Oral Hygiene Instruction Assessment Of A Patient Acute Detox Anesthesia Technician Acute Detox Anesthesia Technician DRUG TEST PRSMV DIR OPT OBS Acute Detox Anesthesia Technician Acute Detox Anesthesia Technician Acute Detox Anesthesia Technician ROUTINE VENIPUNCTURE DRUG TEST PRSMV DIR OPT OBS Acute Detox Anesthesia Technician Advance Directives Directive Yes / No Effective Date File Name No Information Encounters Encounter Description Practice Location Reason(s) For Visit Diagnoses Date Provider Providers Copied on Encounter [facility], [address] [place] [address], [id number] , tel:+ [phone] [facility] No Information Hussein Fields. [address] [place] [address], [id number] , [place]. tel:[phone] [facility], [address] [place], [place], [id number] , [place] tel: [phone] [facility] No Information 4 Klidas Diamond. [address] [place], [place], [id number] , [place]. tel: [phone] [facility], [address] [place], [place], [id number] , [place] tel: [phone] [facility] No Information 4 Klidas Diamond. [address] [place], [place], [id number] , [place]. tel: [phone] [facility], [address] [place], [place], [id number] , [place] tel: [phone] [facility] (chief complaint) En[facility] for [facility] 4 Thomas Venegas. [address] [place], [place], [id number] , [place]. tel: [phone] [facility], [address] [place], [place], [id number] , [place] tel: [phone] [facility] No Information 4 Klidas Diamond. [address] [place], [place], [id number] , [place]. tel: [phone] [facility], [address] [place], [place], [id number] , [place] tel: [phone] [facility] No Information 4 Klidas Diamond. [address] [place], [place], [id number] , [place]. tel: [phone] [facility], [address] [place], [place], [id number] , [place] tel: [phone] [facility] No Information 4 Klidas Diamond. [address] [place], [place], [id number] , [place]. tel: [phone] [facility], [address] [place], [place], [id number] , [place] tel: [phone] [facility] No Information 0-202 4 Klidas Diamond. [address] [place], [place], [id number] , [place]. tel: [phone] [facility], [address] [place], [place], [id number] , [place] tel: [phone] [facility] No Information 0 9-202 4 Klidas Diamond. [address] [place], [place], [id number] , [place]. tel: [phone] [facility], [address] [place] [address], [id number] , [place] tel: [phone] [facility] No Information 8 4 Klidas Diamond. [address] [place], [place], [id number] , [place]. tel: [phone] Family History Family Member Type Diagnosis Age At Onset No Information Payers Payer name Insurance type Covered green party ID Ronan avalosdenice(s) [place] Medicaid Primary [id number] Social History Type Description Quantity Date Captured [...] Utilities Offices (related to Inadequate housing utilities) [id number] Ordered: Utilities Offices (related to Inadequate housing [...]
--- OUTSIDE RECORDS SUMMARY | 2025-06-20 22:38 | XMS_ITS | Encounter Summary ---
Author Organization [employer] [facility] tem Address [id number] [address] [place] [address] Care Team Providers Care Wrapper Counter Name Role Phone GerardoCisco cao Paddy MCLAUGHLIN Primary Care Provider [phone] Encounter Details DateTypeDepartmentCare Team (Latest Contact Info)Elcsaudkmud12/16/2025Orders Only [facility] - Family Medicine [address] [place] [phone] Ref Prov, [place] [address] Social History Tobacco UseTypesPacks/DayYears UsedDateSmoking Tobacco: QhapzlLciphhxsfr696 07/23/1985 - 12/20/2018Passive Smoke Exposure: PastSmokeless Tobacco: Never Comments:vape, today Alcohol UseStandard Drinks/WeekCommentsYes0 (1 standard drink = 0.6 oz pure alcohol)OccasionalAHC UtilitiesAnswerDate RecordedIn the past 12 months has the [employer], gas, oil, or water [employer] threatened to shut off services in your home?Yes09/11/2024Social Connection and Isolation PanelAnswerDate RecordedIn a typical week, how many times do you talk on the phone with family, friends, or neighbors?Twice a week08/01/2022How often do you get together with friends or relatives?Once a week08/01/2022How often do you attend rastafarian or baptist services?Never08/01/2022ctive Member of Clubs or OrganizationsNot on file 08/01/2022How often do you attend meetings of the clubs or organizations you belong to?Never08/01/2022re you , , , , never , or living with a partner?Never dpnagbs9908/01/2022UDIT-CAnswerDate RecordedQ1: How often do you have a drink containing alcohol?Monthly or less 09/11/2024Q2: How many drinks containing alcohol do you have on a typical day when you are drinking?Patient does not drink09/11/2024Q3: How often do you have six or more drinks on one occasion?Less than oalezfd9609/11/2024Overall Financial Resource Strain (CARDIA)AnswerDate RecordedHow hard is it for you to pay for the very basics like food, housing, medical care, and heating?Very hard12/06/2023 PHQ-2AnswerDate RecordedTotal Rfobv061612/10/2024[facility] [place] [facility] Occupational Health - Occupational Stress QuestionnaireAnswerDate RecordedDo you feel stress - tense, restless, nervous, or anxious, or unable to sleep at night because your mind is troubled all the time - these days?Very much08/01/2022Exercise Vital SignAnswerDate RecordedOn average, how many days per week do you engage in moderate to strenuous exercise (like a brisk walk)?2 days08/01/2022n average, how many minutes do you engage in exercise at this level?20 min08/01/2022RAPARE - TransportationAnswerDate RecordedIn the past 12 months, has lack of transportation kept you from medical appointments or from getting medications?No 12/06/2023In the past 12 months, has lack of transportation kept you from meetings, work, or from getting things needed for daily living?No12/06/2023 Housing InstabilityAnswerDate RecordedAre you worried or concerned that in the next two months you may not have stable housing that you own, rent or stay in as a part of a household?Yes12/06/2023hildcareAnswerDate RecordedDo problems getting children's program coordinator make 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 you to work or study?No08/01/2022 EmploymentAnswerDate RecordedDo you need help finding a local career center and/or a training program?No09/11/2024Hunger ScreeningAnswerDate RecordedWithin the past 12 months we worried whether our food would run out before we got money to buy more.Never True05/20/2025Within the past 12 months the food we bought just didn't last and we didn't have money to get more.Never True05/20/2025 Purpose - LifeAnswerDate RecordedI have a purpose and direction in my life.Agree 08/01/2022EducationAnswerDate RecordedWhat is the highest level of school you have completed or the highest degree you have received?GED or equivalent 08/01/2022ex and Gender InformationValueDate RecordedSex Assigned at BirthNot on fileLegal RwrGajs7203/27/2015 11:30 AM EDTGender IdentityNot on fileSexual OrientationNot on filedocumented as of this encounter Plan of Treatment Not on file documented as of this encounter Goals GoalPatient Goal TypeAssociated ProblemsRecent ProgressPatient-Stated?Author home with [facility] care Jenny Miguel RN Note: Evaluation of progress towards goal: with support from friends and family, patient needs to fllow up with [facility] documented as of this encounter Procedures Procedure NamePriorityDate/TimeAssociated DiagnosisCommentsXR ANKLE RT MIN 3 VWS Gzprmyj6606/06/2025 8:30 AM EDTXR FOOT RT MIN 3 NPNPhzoxdg03/16/2025 8:28 AM EDT documented in this encounter Results * X-ray ankle right minimum 3 views (06/06/2025 8:30 AM EDT)Anatomical Region LateralityModalityLower Extremities, MSK, AnkleRightComputed Radiography Narrative Authorizing ProviderResult TypeResult StatusNot In System Ref ProvIMG DIAGNOSTIC IMAGING ORDERABLESFinal Result * X-ray foot right minimum 3 views (06/06/2025 8:28 AM EDT)Anatomical Region LateralityModalityLower Extremities, MSK, FootRightComputed Radiography Narrative Authorizing ProviderResult TypeResult StatusNot In System Ref ProvIMG DIAGNOSTIC IMAGING ORDERABLESFinal Result documented in this encounter Visit Diagnoses Not on filedocumented in this encounter Additional Health Concerns AssessmentNoted TimePHQ-9 Depression Total Score: 1:04 PM EDT documented as of this encounter Care Teams Team MemberRelationshipSpecialtyStart DateEnd Date Cisco Blanc DO [address], [facility] [place] [address] PCP - GeneralFamily Medicine12/19/19documented as of this encounter
--- OUTSIDE RECORDS SUMMARY | 2025-06-20 22:38 | XMS_ITS | Clinical Summary ---
Author Organization [facility] Address [address] [place] [id number] Care Team Providers Care Farm Equipment Service Technician Name Role Phone Tyson Fonseca MD Primary Care Provider [phone] Vivian Brady MD Unavailable [phone] Allergies No known active allergies Medications MedicationSigDispense QuantityRefillsLast FilledStart DateEnd DateStatus ALPRAZolam (XANAX) 2 mg tablet Take 1 mg by mouth.5Active amLODIPine (NORVASC) 5 mg tablet 1 tablet Oral Once a day for 30 days4Active anastrozole (ARIMIDEX) 1 mg tablet Take by mouth.03/03/2024ctive cloNIDine HCl (CATAPRES) 0.1 mg tablet Take 0.1 mg by mouth.5Active HYDROcodone-acetaminophen (NORCO) 5-325 mg per tablet TAKE 1 TABLET BY MOUTH TWICE DAILY FOR PAIN FOR 15 DAYSActive Pramoxine-Hydrocortisone (ANALPRAM-HC) 1-1 % rectal cream 1 application by RECTAL route.5Active linaCLOtide (LINZESS) 72 mcg capsule Take 72 mcg by mouth every 24 hours.4Active metoprolol tartrate, short acting, (LOPRESSOR) 25 mg tablet take 1 tablet by mouth twice a day Oral for 30 DaysActive petrolatum, white 100 % gel 5Active plecanatide (TRULANCE) 3 mg tablet Take 3 mg by mouth.5Active polyethylene glycol 3350 17 gram/dose powder Take 17 g by mouth.5Active testosterone cypionate (DEPO-TESTOSTERONE) 200 mg/mL injection 1 mL.4Active BENEFIBER SUGAR FREE, DEXTRIN, 3 gram/4 gram powd Take 3 g by mouth.5Active Encounters DateTypeDepartmentCare SzwxRmbymdqzrlh66/30/2025 Patient Msg Colorectal Surgery [address] [phone] Lydia Drake PA-C Appointment Bwmtgty7904/03/2025 Patient Msg Colorectal Surgery [address] [phone] Lydia Drake PA-C Follow up from virtual visit04/03/2025Patient Update Colorectal Surgery [address] [phone] Lydia Drake PA-C Pelvic Floor Ucnzkcecmz35/12/2025 11:[address] [facility] [address] [phone] Lydia Drake PA-C Constipation, unspecified constipation type (Primary Dx); Rectal spasm; Pelvic floor dysfunction; Anxiety; Distressed about housing issues; Orthostatic xrzudtmpl82/05/2025Refill Colorectal Surgery [address] [phone] Lydia Drake PA-C Refill Xiubfom4703/21/2025Travelfrom Last 3 Months Social History Tobacco UseTypesPacks/DayYears UsedDateSmoking Tobacco: Never AssessedArea Deprivation IndexAnswerDate RecordedNational Score (1-100), lower number is lower vvbv127402/28/2025State Score (1-10), lower number is lower hbsm03102/28/2025 Data from: https://www.neighborhoodatlas.medicine.[facility].edu/. Last address used for [address]te[address]/28/2025Sex and Gender InformationValueDate RecordedSex Assigned at EzrmpYdvl07/17/2025 4:03 PM EDTLegal AydIqns0811/11/2015 1:48 PM EDTGender UetxlsknZgax90/17/2025 4:03 PM EDTSexual OrientationStraight 03/07/2025 4:03 PM EDT Last Filed Vital Signs Vital SignReadingTime TakenCommentsBlood Myxyosdh539/9307 12:24 PM EDT Lnlmq150402/28/2025 12:24 PM MMNUujbarqamdt57.1 ??C (97 ??F)02/28/2025 12:24 PM EDTRespiratory Rate--Oxygen Cbftwkdeui23%02/28/2025 12:24 PM EDTInhaled Oxygen Concentration--Htovlf05.7 kg (200 lb)02/28/2025 12:24 PM UVDTvepdc571.3 cm (5' 9 )02/28/2025 12:24 PM EDTBody Mass Index29.53002/28/2025 12:24 PM EDT Plan of Treatment Health MaintenanceDue DateLast DoneCommentsAnxiety Sizyzlyog69/14/1987Depression Gkiyolxwp58/14/1987HIV Ylxxzasxh55/14/1987Hepatitis B Vaccine (1 of 3 - 19+ 3- dose series)1987CT Fnrafbfccivb64/14/2014Cologuard (FIT-DNA)2013 Fecal Occult Blood09/04/20134448Lemxjorlvchla87/14/2014Pneumococcal Vaccine: 50+ (1 of 1 - PCV)2018Shingrix Vaccine (1 of 2)2018DTaP,Tdap,Td Vaccine (2 - Td or Tdap)/03/20144879Yltepryyfhi93/28//4Colorectal Cancer Jghfqdmvl99/28/2025Covid-19 Vaccine ( season)2025 06/20/2021, 12/08/2020, 11/18/2020Influenza Vaccine (#1), 04/06/2020, 06/07/2019Diabetes Yqufwsnyq70/21/95321512/10/2024, 09/11/2024, 05/15/2024, Additional history existsLipid Cpfiewedh34, 2Prostate Cancer Screening Wcpcbqtbdi71Hepatitis C PfuhxautsJueyfydve92/05/2021, 12/19/2019, 12/19/2019, Additional history exists Insurance * Guarantor: Chai Russell TypeRelation to PatientDate of BirthPhone Billing AddressPersonal/HdflidAkqg74/14/1971 [address] [facility] [place] [place] [address] Care Teams Team MemberRelationshipSpecialtyStart DateEnd Date Tyosn Fonseca MD PCP - GeneralFamily Medicine11/11/15 Vivian Brady MD [address] [place] [id number] Gastroenterology01/16/25
--- OUTSIDE RECORDS SUMMARY | 2025-06-20 22:38 | XMS_ITS | CCD ---
Author Organization [facility] Care Team Providers Care Supervisor Insecticide Name Role Phone OSINOWO, OSIYEMI Unavailable Unavailable OSINOWO, OSIYEMI Unavailable Unavailable TYSON TOLLIVER Unavailable Unavailable TYSON TOLLIVER Unavailable Unavailable Mary King Unavailable Tawnya Andre Unavailable CHAD, DR CISCO Thomason Primary Care Unavailable MARKER, DR JUARES Admitting Unavailable MARKER, DR JUARES Attending Unavailable MARKER, DR JUARES Consulting Unavailable ALANA MORROW Consulting Unavailable DO Cisco Bonilla Primary Care Provider MD Ty Winkler Emergency Provider CISCO BONILLA Primary Care Physician JAME De Emergency Provider Cisco Bonilla DO Primary Care Provider [phone] Cisco Bonilla DO Primary Care Provider [phone] CISCO BONILLA Attending Unavailable FURLONG, CISCO G Referring Unavailable [...] Primary Care Provider Caitlyn CHAVIS, Vivian Unavailable [phone] Cisco Bonilla DO Primary Care Provider Ehsan Avina DO Attending Provider Kailyn Ehsan Ro Other Provider [phone] Kailyn Ehsan Jia Admitting Unavailable Kailyn, Ehsan A Attending Unavailable Furlong, Cisco Primary Care Unavailable Kailyn, Ehsan A Admitting Unavailable Kailyn, Ehsan A Attending Unavailable Furlong, Cisco Primary Care Unavailable Kailyn, Ehsan A Admitting Unavailable Kailyn, Ehsan A Attending Unavailable Furlong, Cisco Primary Care Unavailable JUANA, FELIPE Referring Unavailable NADERER, TYSON A Primary Care Unavailable JUANA, FELIPE Referring Unavailable SANKOVIC, LYDIA Attending Unavailable NADERER, TYSON A Primary Care Unavailable SANKOVIC, LYDIA Attending Unavailable NADERER, TYSON A Primary Care Unavailable FURLONG, CISCO G Primary Care Unavailable FLO MAYFIELD Attending Unavailable Mouchli, Mohamad A. Referring Unavailable Mouchli, Mohamad A. Admitting Unavailable Mouchli, Mohamad A. Attending Unavailable Mouchli Mohamad A. [...] [No Known Medication Allergies]Propensity to adverse reactions (disorder)[facility] Medications Current Medications MedicationDrug Class(es)DatesSig (Normalized)Sig (Original)acetaminophen 325 mg / HYDROcodone bitartrate 5 mg oral tablet (20 sources)Opioid AgonistStart: 16-38-5558sxzm 1 tablet by mouth twice daily as needed for painStart: 03-04-2025 End: 13-62-2486vhpe 1 tablet by mouth twice daily as needed for painHydrocodone- Acetaminophen 5-325 mg tablet Discontinued 1 TAB PO Twice daily as needed for pain 30 March 04, 2025 March 04, 2025 12:43pm Diagnosis: S92.351A Dispense: 30 (THIRTY)Start: 03-04-2025 End: 63-13-0591flcj 1 tablet by mouth twice daily as needed for painHydrocodone- Acetaminophen 5-325 mg tablet Discontinued 1 TAB PO Twice daily as needed for pain March 04, 2025 March 13, 2025 4:14pm Diagnosis: S92.351A Dispense: 20 (Twenty)Start: 02-18-2025 End: 59-90-5032nfdt 1 tablet by mouth twice daily as needed for painHydrocodone- Acetaminophen 5-325 mg tablet Discontinued 1 TAB PO Twice daily as needed for pain February 18, 2025 March 04, 2025 12:42pm Diagnosis: S92.351A Dispense: 30 (THIRTY)ALPRAZolam 0.5 mg oral tablet (20 sources)BenzodiazepineStart: 69-90-9377pumw 1 tablet by mouth once daily as needed for anxietyStart: 45-21-9085pyej 0.5 tablet by mouth once daily as needed for anxietyALPRAZolam (XANAX) 2 mg tablet Indications: Anxiety Take 0.5 tablets (1 mg total) by mouth nightly as needed for anxiety. 12/10/2024 ActiveStart: 26-22-5471SZDWUHwaia (XANAX) 2 mg tablet Take 1 mg by mouth. 12/10/2024 Active Start: 08-19-2019 End: 31-66-9642emij 1 tablet by mouth three times dailyAlprazolam (Xanax) 1 mg tablet Discontinued 1 MG PO Three times daily 04 24August 19, 2019 7:00pm March 03, 2024 11:08am End: 34-65-9128tmmc 1 tablet by mouth once daily as needed for anxietyALPRAZolam (XANAX) 1 mg tablet Take 1 tablet (1 mg total) by mouth nightly as needed for anxiety. 03/15/2024 Discontinued (Therapy completed)ALPRAZolam ActiveamLODIPine 5 mg oral tablet (20 sources)Dihydropyridine Calcium Channel BlockerStart: 08-19-2019 End: 78-41-5509ibOIZNRzlh 5 mg Tab Refills(s) 0 Start Date: 02/02/24 Status: Ordered Repeat number: 1amLODIPine Besylate Activeanastrozole 1 mg oral tablet (20 sources)Aromatase InhibitorStart: 13-67-0259tvnn 1 mg by mouth once daily anastrozole mg, Oral, Daily, Refills(s) 0 Start Date: 01/09/25 Status: Ordered Repeat number: 1Start: 03-03-2024 End: 32-53-9269eqxq 1 tablet by mouth every weekAnastrozole 1 mg tablet Discontinued 1 MG PO .weekly March 03, 2024 12:00am February 18, 2025 1:42pm baclofen 10 mg oral tablet (3 sources)gamma-Aminobutyric Acid-ergic AgonistStart: 68-67-5496tyhf 1 tablet by mouth every twelve hoursbaclofen compounding powder (4 sources)Start: 56-76-9496gcknydwr compounding powder Refills(s) 0, Spasm Start Date: 05/16/25 Status: Ordered Repeat number: 1Start: 26-78-2890wulgfzfj compounding powder Refills(s) 0 Start Date: 05/16/25 Status: Ordered Repeat number: 1baclofen suppository 10 mg (CPD) (6 sources)Start: 03-26-2025 End: 53-74-0401cezpbsgy suppository 10 mg (CPD) Indications: Pelvic floor dysfunction , Rectal spasm , Constipation, unspecified constipation type 1 suppository by RECTAL route two times a day as needed (rectal pain). Unwrap and insert as directed. 60 suppository 03/26/2025 04/25/2025 ActiveStart: 02-28-2025 End: 43-63-3444nbkecekf suppository 10 mg (CPD) Indications: Pelvic floor dysfunction , Rectal spasm , Constipation, unspecified constipation type 1 suppository by RECTAL route two times a day as needed (rectal pain). Unwrap and insert as directed. 60 suppository 02/28/2025 03/30/2025 Activebisacodyl 10 mg rectal suppository (4 sources)Stimulant LaxativeStart: 36-48-0171tkje 10 mg rectal route once daily as needed for constipationDulcolax 10 mg Supp 10 mg = 1 supp, Rectal, Daily, PRN for constipation, # 10 supp, Refills(s) 0, Pharmacy: [id number], 173, cm, 01/24/25 10:35:00 EDT, Height/Length Dosing, 86.3, kg,01/24/25 10:35:00 EDT, Weight Dosing Start Date: 04/19/25 Status: Ordered Quantity: 10.0 Unit: supp Repeat number: 1cloNIDine hydrochloride 0.1 mg oral tablet (20 sources)Central alpha-2 Adrenergic AgonistStart: 10-15-2024 End: 55-35-9121uzrJMLdne 0.1 mg tab Refills(s) 0, High blood pressure Start Date: 01/09/25 Status: Ordered Repeat number: 1cyclobenzaprine hydrochloride 10 mg oral tablet (1 source)Muscle RelaxantStart: 65-75-1418jwbr 1 tablet by mouth every eight hoursCyclobenzaprine HCl 10 MG 1 tablet at bedtime as needed Orally Three times a day for 7 days Activedicyclomine hydrochloride 10 mg oral capsule (20 sources)AnticholinergicStart: 33-57-3035aitsexdwtue 10 mg Cap 20 mg = 2 cap(s), Refills(s) 0 Start Date: 05/16/25 Status: Ordered Repeat number: 1Start: 21-85-2818etvl 1 capsule by mouth every six hours as neededdicyclomine (BENTYL) 10 mg capsule Indications: Irritable bowel syndrome with both constipation and diarrhea Take 1 capsule (10 mg total) by mouth every 6 (six) hours as needed (cramping). 56 ysqoach4112/17/2024 ActiveStart: 09-11-2024 End: 76-83-6317rrzf 2 capsules by mouth every six hours as neededdicyclomine (BENTYL) 10 mg capsule Indications: Irritable bowel syndrome with both constipation anddiarrhea Take 2 capsules (20 mg total) by mouth every 6 (six) hours as needed (cramping and bloating). 120 capsule 1 09/11/2024 12/10/2024 Discontinued (Ineffective)Start: 09-06-2024 End: 73-04-7028zfsbseovzaz (BENTYL) 10 mg capsule 09/06/2024 09/11/2024 Discontinued (Reorder)Enclomifene (4 sources)Start: 79-67-6174Ycutigermru Enclomifene Start Date: 01/09/25 Status: Ordered Repeat number: 1Enclomiphene (1 source)Start: 50-25-6677nqlb 1 capsule by mouth two times weeklyEnclomiphene Active 1 CAP PO Twice a Week March 03, 2024 12:00amhydrocortisone acetate 10 mg/ml / pramoxine hydrochloride 10 mg/ml rectal cream (20 sources)CorticosteroidStart: 12-20-2024 End: 79-65-0645egdfvouhesnsah-pramoxine (ANALPRAM-HC) 1-1 % rectal cream Indications: Anal fissure Insert 1 Application into the rectum in the morning and 1 Application before bedtime. 30 g 05/13/2025 ActiveStart: 12-20-2024 Pramoxine-Hydrocortisone (ANALPRAM-HC) 1-1 % rectal cream 1 application by RECTAL route. 12/20/2024tiveStart: 12-14-2024 End: 55-26-0288JCZDIDCUD cream Indications: Anal fissure APPLY TO THE AFFECTED AREA THREE TIMES DAILY 28.4 g 1 12/14/2024 12/20/2024 DiscontinuedStart: 12-12-2024 End: 24-60-6183glypqjoocrcctt-pramoxine (ANALPRAM HC) cream Apply topically 3 (three) times a day. Apply thin filmto affected area 30 g 1 12/14/2024 12/14/2024 DiscontinuedStart: 03-15-2024 End: 53-25-1876cpgyuvizbxghdd-pramoxine (ANALPRAM-HC) 1-1 % rectal cream Insert 1 Application into the rectum in the morning and 1 Application before bedtime. 30 g 09/12/2024 12/10/2024 Discontinued (Therapy completed)Hydrophilic Cream ointment (3 sources)Start: 58-97-7525Kamio: 07-10-2803Qlmyoxjoapm Cream ointment Active 1 APPLIC TOPICAL Twice daily March 18, 2025 12:00am Complies with drug therapy hydrOXYzine pamoate 50 mg oral capsule (4 sources)AntihistamineStart: 50-93-4066fhsq 1 capsule by mouth three times daily as needed for anxietyhydrOXYzine (VISTARIL) 50 mg capsule Take 1 capsule (50 mg total) by mouth 3 (three) times a day asneeded for anxiety. 30 capsule 1 12/09/2023 Activeibuprofen 200 mg oral tablet (3 sources)Nonsteroidal Anti-inflammatory DrugStart: 04-35-4572cuvcyhvoh 0.05 mg/mg medicated patch (1 source)Antiarrhythmic, Amide Local AnestheticStart: 94-77-0506Oxgcgwtos 5 % 1 patch remove after 12 hours Externally Once a day for 7 days Jan, Active linaclotide 0.072 mg oral capsule (11 sources)Guanylate Cyclase-C AgonistStart: 52-70-8156kmey 1 capsule by mouth every twenty-four hourslinaCLOtide (LINZESS) 72 mcg capsule Take 72 mcg by mouth every 24 hours. 12/09/2023 Activemetoprolol tartrate 25 mg oral tablet (20 sources)beta-Adrenergic BlockerStart: 02-02-2024 End: 75-16-0747malz 1 tablet by mouth once dailyLopressor 25 mg oral tablet 25 mg = 1 tab(s), Oral, Daily, Refills(s) 0 Start Date: 02/02/24 Status:Ordered Repeat number: 1Start: 02-15-2023 End: 52-68-7789uuxg 1 tablet by mouth twice dailymetoprolol tartrate (LOPRESSOR) 25 mg tablet take 1 tablet by mouth twice a day 60 tablet 5 02/15/2023 03/14/2024 Discontinued (Reorder)Metoprolol Tartrate ActivemetroNIDAZOLE 500 mg oral tablet (2 sources)Nitroimidazole AntimicrobialStart: 78-84-0779BixwwLIRGIVGR 500 mg Tab 500 mg = 1 tab(s), Refills(s) 0 Start Date: 05/16/25 Status: Ordered Repeat number: 1nitrofurantoin, macrocrystals 25 mg / nitrofurantoin, monohydrate 75 mg oral capsule (16 sources)Nitrofuran AntibacterialStart: 01-30-2024 End: 52-72-5451wfcydjarpgxqij macrocrystals-monohydrate 100 mg Cap Refills(s) 0 Start Date: 02/02/24 Status: Ordered Repeat number: 1ondansetron 4 mg disintegrating oral tablet (2 sources)Serotonin-3 Receptor AntagonistStart: 12-24-1221ozqnyvpieph 4 mg Dis Tab 4 mg = 1 tab(s), Refills(s) 0 Start Date: 05/16/25 Status: Ordered Repeat nu mber: 1petrolatum 1 mg/mg topical ointment (7 sources)Start: 14-13-5532qljcbhbpdp, white 100 % gel 02/19/2025 Active plecanatide 3 mg oral tablet (16 sources)Start: 37-84-8343vxvq 1 tablet by mouth once dailyTrulance 3 mg oral tablet 3 mg = 1 tab(s), Oral, Daily, # 30 tab(s), Refills(s) 4, Pharmacy: [facility], 173, cm, 01/24/25 10:35:00 EDT, Height/Length Dosing, 86.3, kg, 01/24/25 10:35:00 EDT, Weight Dosing Start Date: 01/24/25 Status: Ordered Quantity: 30.0 Unit: tab(s) Repeat number:5 Indications: Other specified disorders of muscle; Outlet dysfunction constipation; Constipation, u nspecified; Psychological and behavioral factors associated with disorders or diseases classified elsewhere; Other psychoactive substance dependence, uncomplicated; Abdominal distension (gaseous);polyethylene glycol 3350 41242 mg powder for oral solution (20 sources)Osmotic LaxativeStart: 09-11-2024 End: 46-69-0934hglrhfaxujtw glycol (MIRALAX) 17 gram/dose powder Take 17 g by mouth in the morning. 510 g 5 05/13/2025 ActiveStart: 02-20-2024 End: 57-67-4071lfcmjmxlsvtw glycol (GLYCOLAX) 17 gram/dose powder Take 17 g by mouth in the morning. 510 g 02/20/2024 03/15/2024 Discontinued (Therapy completed)Senna Leaves (6 sources)Start: 10-29-0183Aprlb 8.6 mg oral tablet 17.2 mg, 2 tab(s), Oral, Once a day (at bedtime) for constipation, 100 tab(s), Refill(s) 0, [facility], 173, cm, 01/24/25 10:35:00 EDT, Height/Length Dosing, 86.3, kg, 01/24/25 10:35:00 EDT, Weight Dosing Start Date: 04/19/25 Status: Ordered Quantity: 100.0 Unit: tab(s) Repeat number: 1Start: 09-94-8646Pcwbr 8.6 mg oral tablet 17.2 mg, 2 tab(s), Oral, Once a day (at bedtime) for constipation, 100 tab(s), Refill(s) 3, [facility], 173, cm, 01/09/25 12:52:00 EDT, Height/Length Dosing, 90.9, kg, 01/09/25 12:52:00 EDT, Weight Dosing Start Date: 01/09/25 Status: Ordered Quantity: 100.0 Unit: tab(s) Repeat number: 4Sertraline (2 sources)Serotonin Reuptake InhibitorSertraline HCl Activetamsulosin hydrochloride 0.4 mg oral capsule (13 sources)alpha-Adrenergic BlockerStart: 65-01-7946cqqr 1 capsule by mouth twice dailytamsulosin 0.4 mg Cap 0.4 mg = 1 cap(s), Oral, BID, # 60 cap(s), Refills(s) 11, Pharmacy: [facility], 173, cm, 05/16/25 10:50:00 EDT, Height/Length Dosing, 78, kg, 05/16/25 10:50:00 EDT, Weight Dosing Start Date: 05/17/25 Status: Ordered Quantity: 60.0 Unit: cap(s) Repeat number: 12 Start: 02-02-2024 End: 04-05-1762bnmb 1 capsule by mouth once dailyTamsulosin 0.4 mg capsule Discontinued 0.4 MG PO Daily March 03, 2024 12:00am February 18, 2025 1:42pm tenapanor 50 mg oral tablet (2 sources)Start: 05-27-2025 End: 93-87-7175rcui 1 tablet by mouth twice dailyIbsrela 50 mg oral tablet 50 mg = 1 tab(s), Oral, BID, X 30 day(s), # 60 tab(s), Refills(s) 6, Pharmacy: [facility], 173, cm, 05/27/25 12:31:00 EDT, Height/Length Dosing, 73, kg, 05/27/25 12:31:00 EDT, Weight Dosing Start Date: 05/27/25 Stop Date: 12/23/25 Status: Ordered Quantity: 60.0 Unit: tab(s) Repeat number: 7 Indications: Change in bowel habit; Constipation, unspecified; Otherspecified symptoms and signs involving the digestive system and abdomen; Retention of urine, unspecified; Abnormal weight loss;Testosterone (20 sources)AndrogenStart: 54-53-8705cextrndahcfd Refills(s) 0 Start Date: 01/09/25 Status: Ordered Repeat number: 1Start: 73-52-0421vzcwgh 180 mg by intramuscular injection two times weeklyStart: 48-74-8172sizrpwkjqwtm cypionate (DEPO-TESTOSTERONE) 200 mg/mL injection 1 mL. 03/03/2024 ActiveStart: 03-03-2024 inject 200 mg by intramuscular injection every weekTestosterone Cypionate Active 200 MG IM every week March 03, 2024 12:00amtestosterone cypionate (DEPOTESTOTERONE CYPIONATE) 100 mg/mL injection Inject 1 mL (100 mg total) into the appropriate muscle. Activewheat dextrin 3000 mg powder for oral solution (20 sources)Start: 03-27-2025 End: 75-59-6196poyn 3 g by mouth in the morningwheat dextrin (BENEFIBER SUGAR FREE, DEXTRIN,) 3 gram/4 gram powder Take 3 g by mouth in the morning. 152 g 5 05/13/2025 ActiveStart: 02-06-2025 End: 03-82-8123GFAYGAUIM SUGAR FREE, DEXTRIN, 3 gram/4 gram powd Take 3 g by mouth. 02/06/2025 ActiveStart: 01-29-2025 End: 93-32-9276cnrf 3 g by mouth in the morningBENEFIBER SUGAR FREE, DEXTRIN, 3 gram/4 gram powder take 3 (THREE) grams BY MOUTH IN THE MORNING 152 g 5 01/29/2025 02/06/2025 Discontinued (Reorder)Start: 01-28-2025 End: 43-62-4543fsdv 3 g by mouth in the morningwheat dextrin (BENEFIBER SUGAR FREE, DEXTRIN,) 3 gram/3.8 gram powder Take 3 g by mouth in the morning. 144 g 5 01/28/2025 01/29/2025 DiscontinuedStart: 09-13-2024 End: 34-76-1034ncdr 3 g by mouth in the morningwheat dextrin (BENEFIBER SUGAR FREE, DEXTRIN,) 3 gram/3.8 gram powder Take 3 g by mouth in the morning. 144 g 5 12/31/2024 01/26/2025 Discontinued (Reorder) Completed/Discontinued Medications MedicationDrug Class(es)DatesSig (Normalized)Sig (Original)amitriptyline hydrochloride 10 mg oral tablet (14 sources)Tricyclic AntidepressantStart: 10-15-2024 End: 64-66-6826hyaz 1 tablet by mouth once dailyamitriptyline (ELAVIL) 10 mg tablet Take 1 tablet (10 mg total) by mouth nightly. 30 tablet 1 10/15/2024 12/10/2024 Discontinued (Patient Stopped On Own)Start: 06-11-2023 End: 93-89-3988uijp 1 tablet by mouth once dailyamitriptyline (ELAVIL) 25 mg tablet take 1 tablet by mouth once daily 30 tablet 1 06/11/2023 12/09/2023 Discontinued (Therapy completed)Start: 08-19-2019 End: 84-96-5861tlfu 1 tablet by mouth once dailyAmitriptyline 50 mg Tablet Discontinued 50 MG PO Daily August 19, 2019 1:00am March 03, 2024 11:08am Amitriptyline HCl Activecalcium polycarbophil 625 mg oral tablet (4 sources)Start: 03-15-2024 End: 49-74-5121zqzn 1 tablet by mouth in the morning, then take 1 tablet by mouth at bedtimepolycarbophil (FIBERCON) 625 mg tablet Take 1 tablet (625 mg total) by mouth in the morning and 1 tablet (625 mg total) before bedtime. 60 tablet 2 03/15/2024 09/11/2024 Discontinued (Ineffective)ciprofloxacin 500 mg oral tablet (2 sources)Quinolone AntimicrobialStart: 45-04-0643kwja 1 tablet by mouth once dailyCipro 500 mg Tab 500 mg = 1 tab(s), Oral, Daily, Take 1 tablet the day before the procedure and 1 tablet after the procedure, # 2 tab(s), Refills(s) 0, Pharmacy: [facility], 173, cm, 05/16/25 10:50:00 EDT, Height/Length Dosing, 78, kg, 05/16/25 10:50:00 EDT, Weight Dosing Start Date: 05/16/25 Status: Ordered Quantity: 2.0 Unit: tab(s) Repeat number: 1Enclomiphene 25 mg capsule (6 sources)Start: 03-03-2024 End: 28-54-5323zgfz 1 capsule by mouth two times weeklyEnclomiphene 25 mg capsule Discontinued 1 CAP PO Twice a Week March 03, 2024 12:00am February 18, 2025 1:43pmgabapentin 300 mg oral capsule (1 source)Anti-epileptic AgentStart: 01-24-2023 End: 42-62-1400errr 1 capsule by mouth three times dailygabapentin (NEURONTIN) 300 mg capsule Take 1 capsule (300 mg total) by mouth 3 (three) times a day. 01/24/2023 12/09/2023 Discontinued (Therapy completed)hydrocortisone 25 mg/ml topical cream (11 sources)CorticosteroidStart: 03-19-2024 End: 36-94-1976jfxpxrujrnkvav (ANUSOL-HC) 2.5 % rectal cream Indications: Rectal fissure Insert 1 Application intothe rectum in the morning and 1 Application before bedtime. 30 g 03/19/2024 12/10/2024 Discontinued(Therapy completed) hydrocortisone acetate 5 mg/ml / lidocaine hydrochloride 30 mg/ml rectal cream (12 sources)Antiarrhythmic, Corticosteroid, Amide Local AnestheticStart: 03-16-2024 End: 26-94-0369nhqhcgrwl HCl-hydrocortison ac 3-0.5 % cream Insert 1 Application into the rectum 2 (two) times a day as needed (pain). 7 g 1 03/16/2024 12/10/2024 Discontinued (Dose adjustment)hyoscyamine sulfate 0.125 mg sublingual tablet (4 sources)Start: 03-15-2024 End: 33-66-6538dqzm 1 tablet by mouth every four hours as neededhyoscyamine (LEVSIN/SL) 0.125 mg SL tablet Take 1 tablet (125 mcg total) by mouth every 4 (four) hours as needed for cramping. 30 tablet 1 03/15/2024 09/11/2024 Discontinued (Therapy completed)meloxicam 15 mg oral tablet (4 sources)Nonsteroidal Anti-inflammatory DrugStart: 03-15-2024 End: 68-08-5415xvcn 1 tablet by mouth once daily as needed for painmeloxicam (MOBIC) 15 mg tablet Take 1 tablet (15 mg total) by mouth daily as needed for pain (cramping). 30 tablet 2 03/15/2024 09/11/2024 Discontinued (Dose adjustment)NuLYTELY [place] oral powder for reconstitution (1 source)Start: 64-11-2768rzhw 1 dose by mouth onceNuLYTELY [place] oral powder for reconstitution See Instructions, 1 EA, Refill(s) 0, Per physician in structions, prior to colonoscopy., [facility], 173, cm, 05/27/25 12:31:00 EDT, Height/Length Dosing, 73, kg, 05/27/25 12:31:00 EDT, Weight Dosing Start Date: 05/27/25 Status: Ordered Quantity: 1.0 Unit: EA Repeat number: 1 omeprazole 20 mg delayed release oral capsule (7 sources)Proton Pump InhibitorStart: 12-09-2023 End: 37-54-2544eprk 1 capsule by mouth in the morningomeprazole (PriLOSEC) 20 mg capsule Take 1 capsule (20 mg total) by mouth in the morning. 30 capsule 1 12/09/2023 03/15/2024 Discontinued (Therapy completed)oxyCODONE hydrochloride 5 mg oral tablet (2 sources)Opioid AgonistStart: 03-19-2025 End: 87-73-6444uufv 1 tablet by mouth every six hours as needed for pain Oxycodone 5 mg tablet Discontinued 5 MG PO Q6H as needed for pain 10 03March 19, 2025 March 19, 2025 11:33amStart: 03-19-2025 End: 82-72-6122huyc 1 tablet by mouth every six hours as needed for pain Oxycodone 5 mg tablet Discontinued 5 MG PO Q6H as needed for pain 10 03March 19, 2025 March 19, 2025 11:33ampeg 3350-sod sulf,pjnz-nqt-aas 178.7-7.3-0.5 gram recon soln (1 source)Start: 02-13-2024 End: 80-35-8471pym 3350-sod sulf,eqkw-uhf-tqm 178.7-7.3-0.5 gram recon soln Indications: Change in bowel habits Take one container twice as directed by scheduled instructions 2 each 02/13/2024 02/14/2024 Discontinued (Formulary change)psyllium 3400 mg powder for oral suspension (10 sources)Start: 09-11-2024 End: 94-06-3585dcopsshm husk (MetamuciL) 3.4 gram/5.4 gram powder Take 3.4 g by mouth in the morning. 660 g 5 09/11/2024 12/10/2024 Discontinued (Therapy completed)sod sulf-pot chloride-mag sulf 1.479-0.188- 0.225 gram tablet (1 source)Start: 02-06-2024 End: 10-22-7429njh sulf-pot chloride-mag sulf 1.479-0.188- 0.225 gram tablet [...] socioeconomic history finding; Translations: [Distressed about housing issues]05-04-1138HtwyquepVanykeh-related disorders (20 sources)Alcohol withdrawal delirium; Translations: [Delirium tremens]Onset: 678203-90-4469QwllysiSutf and rectal conditions (10 sources)Anal fissure; Translations: [Anal fissure, unspecified]Onset: [id number] disorders (20 sources)Anxiety; Translations: [Anxiety disorder, unspecified]Onset: 389681-66-0816LehdwswZyzcudlzuh associated with dizziness or vertigo (1 source)Postural dizziness; Translations: [Dizziness and giddiness]04-02-2025 EpisodicDisorders of lipid metabolism (10 sources)Ukfdjsqamnkznztwapda37-01-0581OsemkumJsgxwbwnsfaywa and diverticulitis (20 sources)Diverticulosis of large intestine without perforation or abscess without bleeding; Translations: [Diverticular disease]Onset: 10-17-2019 75-78-9238LcrnocqWmeaoxzzzq disorders (1 source)Gastroesophageal reflux disease; Translations: [Gastro-esophageal reflux disease without esophagitis]33-50-8574CwhvaxuEpmufffod hypertension (20 sources)Hypertensive disorder; Translations: [Benign essential hypertension] Onset: 542144-92-0005RbxxlupLaili and electrolyte disorders (8 sources)Hyperkalemia; Translations: [Dehydration]Onset: EpisodicFracture of lower limb (19 sources)Displaced fracture of fifth metatarsal bone, right foot, initial encounter for closed fracture; Translations: [Fracture of fifth metatarsal bone of right foot]Onset: 606452-93-8359PybpspsfGsnghgyajwoew symptoms and ill- defined conditions (20 sources)Acute retention of urine ; Translations: [Other retention of urine] Onset: 845830-33-4193AzoznddlMpbflcgfr (20 sources)Chronic hepatitis C; Translations: [Chronic viral hepatitis C]Onset: 284658-30-5479RstsgcrQuzaxvmgy (3 sources)Viral hepatitis C; Translations: [Unspecified viral hepatitis C without hepatic coma]03-11-4367QhilzwzkGxzsphdcocc of prostate (11 sources)Benign prostatic hypertrophy without outflow obstruction; Translations: [Benign prostatic hyperplasia without lower urinary tract symptoms]Onset: 49-61-7912SijgkcvBhqcuaeaefabs mental health disorders (13 sources)Psychosomatic factor in physical condition; Translations: [Psychological and behavioral factors associated with disorders or diseases classified elsewhere]Onset: 53-59-4307KdfulruNhyt disorders (20 sources)Moderate recurrent major depression; Translations: [Major depressive disorder, recurrent, moderate]Onset: 03-09-2021 Resolved: 391778-33-3418ZosykdoJwomx connective tissue disease (5 sources)Disorder of muscle; Translations: [Other specified disorders of muscle]Onset: 03-09-9570YdwpqensCjiod connective tissue disease (14 sources)Pelvic floor dysfunction; Translations: [Other specified disorders of muscle]61-37-3266YejqzllkNjifc connective tissue disease (1 source)Other specified disorders of muscle; Translations: [Pelvic floor dysfunction]Onset: 12-88-5194TswvmkxyMdpgf endocrine disorders (17 sources)Male hypogonadism; Translations: [Testicular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 supported [id number] Can be viewed in source system Missing Attachment - attachment storage system not supported [id number] Can be viewed in source systemMissing Attachment - attachment storage system not supported [id number] Can be viewed in source systemMissing Attachment - attachment storage system not supported [id number] Can be viewed in source systemMissing Attachment - attachment storage system not supported [id number] Can be viewed in source systemMissing Attachment - attachment storage system not supported [id number] Can be viewed in source systemAmbulatory Visit Summaryon 05-27-2025 Ambulatory Visit SummaryAmbulatory Visit Summary CHAI ARNOLD :1970 Visit Date:05/27/2025 Ambulatory Visit Instructions Your Diagnosis Constipation Change in bowel habits Rectal pressure Weight loss History of diverticulitis Urinary retention Your Care Team Attending Physician - Vivian [...] CHAVIS, Ethan Phillips Where: [facility] [place] [address] [place] [address]- Medications What How Much When Why Instructions New tenapanor (Ibsrela 50 mg oral tablet) 1 Tablets By Mouth 2 times a day Constipation Change in bowel habits Rectal pressure Weight loss Urinary retention Refills: 6 Pickup at [facility] Unchanged baclofen (baclofen compounding powder) Contact prescribing physician if questions or concerns Unchanged clonidine (cloNIDine 0.1 mg tab) Contact prescribing physician if questions or concerns Unchanged tamsulosin (tamsulosin 0.4 mg Cap) 1 Capsules By Mouth 2 times a day Contact prescribing physician if questions or concerns Pharmacy Information [facility]: [address] [place], [place] [id number] [phone] Allergies No Known Medication Allergies Problems Ongoing [...] signed up for this yet, please contact [employer] at [phone] to get signed up today. Language Information Language assistance services are available as needed. [facility] CenterGastroenterology Office/Clinic Noteon 49-00-2001Jovimyfpgiffpuzu Office/Clinic NoteGastroenterology Office/Clinic Note Chief Complaint constipation, [...] days could not see a provider at [facility] Assessment/Plan 1. Constipation (K59.00: Constipation, unspecified) 2. [...] Patient was declined to be seen by [facility] psychology. Might need to refer him to F provider to referhim for GI psychology Rectal [...] Male normal range 80-355 mL Normal sensitivity F Lydia Drake PA-C Office note 02/28/25: Assessment [...] %: 79.1 H Lymph %: 11.3 L [place] %: 7.4 EOS %: 1.4 Basophil %: 0.6 Neutro Abs: 6.9 H Lymph Abs: 1.0 L [place] Abs: 0.7 EOS Abs: 0.1 Basophil Abs: [...] the pelvic floor after anorectal mano at [facility] lost 18 pounds has urinary retention [...] stool in the anal (more content not included)...[facility] Medical CenterComment on above:Result Comment: Electronically Signed By: Caitlyn CHAVIS, Vivian Lance\.will\Date and Time Signed: 05/27/2513:01 EDTAmbulatory Visit Summaryon [...] PM EDT With: Where: [facility] [address] [address]- Tuesday 2:00 PM EDT With: Ethan JARAMILLO MD Where: [facility] [address] [place] [address]- You Need to Schedule the Following Appointments Follow Up with CLINT CHAVIS, Ethan Phillips, MEKA When: Comments: cysto Where: [address] [facility] [place] [address]- Medications What How Much When Instructions Changed tamsulosin (tamsulosin 0.4 mg Cap) 1 Capsules By Mouth At bedtime Pickup at [facility] Unchanged baclofen (baclofen compounding powder) Contact [...] physician if questions or concerns Pharmacy Information [facility]: [address] [place], [place] [phone] Allergies No Known Medication Allergies Problems Ongoing [...] Leaking (dribbling) after urinating (more content not included)...[facility] CenterUrology Office/Clinic Noteon 29-21-2088Haiefea Office/Clinic NoteUrology Office/Clinic Note HPI Staff 54 yr old male here for TBH f/u due to Rectal pain, dizziness and urinary retention. Pt has cath Previous dx: Urinary retention, BPH, Frequent bowel movements *Tamsulosin 0.4mg qd ? 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 -cont tamsulosin, rx sent [...] in medical record [id number] (more content not included)...[facility] Medical CenterComment on above: Result Comment: Electronically Signed By: JOSEPH Allen APRN, [place] X\.iwll\Date and Time Signed: 05/16/25 12:01 EDTXR foot RT 2Von 11-00-4395KX foot RT 2V [facility] [address] XRay Report Signed Patient: Chai Arnold MR#: [id number] 2 : 1970 Acct:[id number] Age/Sex: 54 / M ADM Date: 03/19/25 Loc: [place] Room: Type: [facility] Attending Dr: Ehsan Avina DO Copies [...] Lisa M.D. 03/20/2025 8:49 AM Dictation Location: [place] [address] Transcribed By: [facility] 03/20/25 0849 Dictated By: Dante Lisa II, MD 03/20/25 0849 Signed By: 03/20/25 0849[facility] Physician [facility] CenterAmphetamine Screen Ql (U)Ordered By: Nirmal Bruno on 96-82-7940Owtbdhzaecmw Ql (U)NegativeNegWVUMedicine Harrison Community HospitalBarbiturates [Presence] in Urine by Screen methodOrdered By: Nirmal Bruno on 71-21-7260Xzwzuzskuhvb Screen Ql (U)NegativeNegative [facility] YoungstownBenzodiazepines Screen Ql (U)Ordered By: Nirmal Bruno on 24-06-5047Elarbfgjbxlyawn Ql (U)PositiveHighNegativeSelect Medical Specialty Hospital - YoungstownBenzoylecgonine [Presence] in Urine by Screen method Ordered By: Nirmal Bruno on 34-09-4820Uaykskfepzzgknm Screen Ql (U)Negative NegativeSelect Medical Specialty Hospital - YoungstownCannabinoids [Presence] in Urine by Screen methodOrdered By: Nirmal Bruno on 68-86-3552Pqjkvzdpuwbx Screen Ql (U) NegativeNegativeSelect Medical Specialty Hospital - YoungstownComment on above:These are unconfirmed results and should not be used for legal purposes. Drug Cut-Off Concentration: AMPH 1000 ng/mL MAXIMILIAN 200 ng/mL NORA 200 ng/mL COCM 300 ng/mL OP 300 ng/mL PCP 25 ng/mL THC 20 ng/mLDrug Screen,Urineon 56-19-8438Dujdlgugysw Screen,UrineNegativeNormalNegativeBroward Health North Physician [facility] Medical CenterComment on above: Performed By: #### URDS #### [place] [address] USABarbiturate Screen,UrineNegativeNormalNegativeThe Cape Fear/Harnett Health Physician GroupComment on above:Performed By: #### URDS #### [place] [address] USABenzodiazepines Screen,UrinePositiveNormalNegativeThe [facility] Fear/Harnett Health Physician GroupComment on above:Performed By: #### URDS #### [place] [address] USACannabinoid Screen,UrineNegativeNormalNegativeThe [facility]/Harnett Health Physician GroupComment on above:Result Comment: These are unconfirmed results and should not be used for legal purposes. Drug Cut-Off Concentration: AMPH 1000 ng/mL MAXIMILIAN 200 ng/mL NORA 200 ng/mL COCM 300 ng/mL OP 300 ng/mL PCP 25 ng/mL THC 20 ng/mL PERFORMED BY: [place] [address] PATHOLOGIST COLLAR STAY FUSER TENDER BROWN OLIVIER M.D.Performed By: #### URDS #### [place] [address] USACocaine Screen,UrineNegativeNormalNegativeBroward Health North Physician GroupComment on above:Performed By: #### URDS #### [place] [address] USAOpiate Screen,UrinePositiveNormalNegativeThe Cape Fear/Harnett Health Physician GroupComment on above:Performed By: #### URDS #### [place] [address] USAPhencyclidine Screen,UrineNegativeNormalNegativeBroward Health North Physician GroupComment on above:Performed By: #### URDS #### [place] [address] USAOpiates [Presence] in Urine by Screen methodOrdered By: Nirmal Bruno on 76-90-0692Xgxchkn Screen Ql (U)PositiveHighNegativeSelect Medical Specialty Hospital - YoungstownPhencyclidine Screen Ql (U)Ordered By: Nirmal Bruno on 89-39-4688Ydiospnxuazff Ql (U)NegativeNegativeSelect Medical Specialty Hospital - [facility]stown Alanine aminotransferase [Enzymatic activity/volume] in Serum or PlasmaOrdered By: Ehsan Avina on 02-78-3428YTT [Catalytic activity/Vol]15 U/L7-52[facility] - YoungstownComment on above:Performed By: #### CMP wRFX A1C, CBC #### [facility] [address] [place] [address] USAAlbumin [Mass/volume] in Serum or Plasma by Bromocresol green (BCG) dye binding methoOrdered By: Ehsan Avina on 98-95-0763Exhyvio BCG dye [Mass/Vol]4.2 g/dL3.5-5.7FOhioHealth Dublin Methodist HospitalAlkaline phosphatase [Enzymatic activity/volume] in Serum or PlasmaOrdered By: Ehsan Avina on 29-97-7582WWC [Catalytic activity/Vol]116 U/GPcva67-095XbvrpafffSelect Medical Specialty Hospital - YoungstownComment on above:Result Comment: PERFORMED BY: [place] [address] PATHOLOGIST COLLAR STAY FUSER TENDER BROWN OLIVIER M.D.Performed By: #### CMP wRFX A1C, CBC #### [facility] [address] [place], [place] [address] USAAspartate aminotransferase [Enzymatic activity/volume] in Serum or PlasmaOrdered By: Ehsan Avina on 74-96-7246PPE [Catalytic activity/Vol]20 U/F16-96EjrwyhbneSelect Medical Specialty Hospital - YoungstownComment on above: Performed By: #### CMP wRFX A1C, CBC #### [facility] [address] [place] [id number] USABasophils [#/volume] in Blood by Automated countOrdered By: Ehsan Avina on 48-27-3929Qtsrmwwdj (Bld) [#/Vol]0.1 10*3/uL0.0-0.2 [facility] YoungstownComment on above:Result Comment: PERFORMED BY: [place] [address] PATHOLOGIST COLLAR STAY FUSER TENDER BROWN OLIVIER M.D.Performed By: #### CMP wRFX A1C, CBC #### [facility] [address] [place] [address] USABasophils/100 leukocytes in Blood by Automated count Ordered By: Ehsan Avina on 96-87-9488Nyfyfvnum/100 WBC (Bld)0.9 %.[facility] - YoungstownComment on above:Performed By: #### CMP wRFX A1C, CBC #### [facility] [address] [place] [address] USABilirubin.total [Mass/volume] in Serum or PlasmaOrdered By: Ehsan Avina on 60-82-9673Yotbbktuo [Mass/Vol]1.0 mg/dL0.3-1.0[facility] - YoungstownComment on above:Performed By: #### CMP wRFX A1C, CBC #### [place] [address] USACMP with reflex to A1Con 27-66-3153Llybbry [Mass/Vol]4.2 g/dLNormal3.5-5.7The [facility]arnett Health Physician GroupComment on above:Performed By: #### CMP wRFX A1C, CBC #### [facility] [address] [place] [address] USAGFR/1.73 sq M.predicted MDRD (S/P/Bld) [Vol rate/Area] mL/min/{1.73_m2}NormalThe Cape Fear/Harnett Health Physician GroupComment on above:Performed By: #### CMP wRFX A1C, CBC #### [facility] [address] [place] [address] USACalcium [Mass/volume] in Serum or PlasmaOrdered By: Ehsan Avina on 38-75-8951Tdpjzfj [Mass/Vol]9.2 mg/dL8.6-10.3FOhioHealth Dublin Methodist HospitalComment on above:Performed By: #### CMP wRFX A1C, CBC #### [facility] [address] [place] [address] USACarbon dioxide, total [Moles/volume] in Serum or Plasma Ordered By: Ehsan Avina on 62-43-4647QY1 [Moles/Vol]29.7 mmol/L21.0-31.0 [facility] - YoungstownComment on above:Performed By: #### CMP wRFX A1C, CBC #### [facility] [address] [place] [address] USAChloride [Moles/volume] in Serum or PlasmaOrdered By: Ehsan Avina on 37-07-1204Iynzyzck [Moles/Vol]102 mmol/T50-551HpgninljgSelect Medical Specialty Hospital - YoungstownComment on above:Performed By: #### CMP wRFX A1C, CBC #### [facility] [address] [place] [address] USAComplete Blood Count Auto Diffon 18-84-5610Tyxp Corpuscular HGB Conc34.4 g/uPCxzvos85.5-35.6The [facility] Health Physician GroupComment on above:Performed By: #### CMP wRFX A1C, CBC #### [facility] [address] [place] [address] USANRBC%0.1 /100{WBC}Normal0-0.5The [facility] Comment on above:Performed By: #### CMP wRFX A1C, CBC #### [facility] [address] [place] [address] USAWhite Blood Count6.4 [CFU]/mLNormal4.1-10.5The [facility] Physician [facility] Medical CenterComment on above:Performed By: #### CMP wRFX A1C, CBC #### [facility] [address] [place] [address] USACreatinine [Mass/volume] in Serum or PlasmaOrdered By: Ehsan Avina on 43-69-5908Gfntvpshhg [Mass/Vol]1.03 mg/dL0.70-1.30[facility] YoungstownComment on above:Performed By: #### CMP wRFX A1C, CBC #### [facility] [address] [place] [address] USAECG 12 lead ECGon 57-36-5370FLJ 12 lead ECGMARTIN [facility] [address] [place] [address] [place] [address] Electrocardiograph Report Signed Patient: Chai Arnold MR#: [id number] 2 : 1970 Acct:[id number] Age/Sex: 54 / M ADM Date: 03/18/25 Loc: [place] Room: Type: [facility] Attending Dr: Ehsan Avina DO Ordering [...] previous ECGs available Confirmed by Eduardo Torrez ([id number]) on 03/18/2025 1:40:16 PM Referred By: Electronically Signed By: Eduardo Torrez Transcribed By: MUS Signed By Eduardo Torrez MD 03/18/[address] [place] [address] Physician GroupEosinophils [#/volume] in Blood by Automated countOrdered By: Ehsan Avina on 66-05-9627Mndlsqsveue (Bld) [#/Vol]0.9 10*3/uLHigh0.0-0.45[facility] YoungstownComment on above: Performed By: #### CMP wRFX A1C, CBC #### [facility] [address] [place] [id number] USAEosinophils/100 leukocytes in Blood by Automated count Ordered By: Ehsan Avina on 46-82-2074Jcnvubobbdq/100 WBC (Bld)14.4 %.[facility] - YoungstownComment on above:Performed By: #### CMP wRFX A1C, CBC #### [facility] [address] [place] [address] USAErythrocyte distribution width [Ratio] by Automated count Ordered By: Ehsan Avina on 63-29-6707Ftadptdrkju distribution width (RBC) [Ratio]12.9 %12.0-14.8[facility] YoungstownComment on above: Performed By: #### CMP wRFX A1C, CBC #### [facility] [address] [place] [address] USAErythrocytes [#/volume] in Blood by Automated countOrdered By: Ehsan Avina on 92-70-2032PKZ (Bld) [#/Vol]4.85 10*6/uL3.90-5.60[facility] YoungstownComment on above:Performed By: #### CMP wRFX A1C, CBC #### [facility] [address] [place] [address] USAGlucose [Mass/volume] in Serum or PlasmaOrdered By: Ehsan Avina on 64-71-9624Igqivja [Mass/Vol]88 mg/xF55-745JwyscdpyaSelect Medical Specialty Hospital - YoungstownComment on above:Performed By: #### CMP wRFX A1C, CBC #### [facility] [address] [place] [address] USAHematocrit [Volume Fraction] of Blood by Automated count Ordered By: Ehsan Avina on 78-63-2444Vybhnydmsb (Bld) [Volume fraction]46.4 % 38.8-50.0[facility] - YoungstownComment on above:Performed By: #### CMP wRFX A1C, CBC #### [facility] [address] [place] [id number] USAHemoglobin [Mass/volume] in BloodOrdered By: Ehsan Avina on 44-34-6334Zyhscmvsrq (Bld) [Mass/Vol]16.0 g/dL13.0-17.0[facility] - YoungstownComment on above:Performed By: #### CMP wRFX A1C, CBC #### [facility] [address] [place] [id number] USALeukocytes [#/volume] corrected for nucleated erythrocytes in Blood by Automated counOrdered By: Ehsan Avina on 89-69-3320QAE corrected for nucl RBC Auto (Bld) [#/Vol]6.4 10*3/uL4.1-10.5FOhioHealth Dublin Methodist HospitalLeukocytes [#/volume] in Blood by Automated countOrdered By: Ehsan Avina on 26-39-7835EWG (Bld) [#/Vol]6.4 10*3/uL4.1-10.5FOhioHealth Dublin Methodist HospitalComment on above:Performed By: #### CMP wRFX A1C, CBC #### [facility] [address] [place] [address] USALymphocytes [#/volume] in Blood by Automated countOrdered By: Ehsan Avina on 75-71-8854Ubhrahmziye (Bld) [#/Vol]1.2 10*3/uL1.00-4.8 [facility] YoungstownComment on above:Performed By: #### CMP wRFX A1C, CBC #### [facility] [address] [place] [address] USALymphocytes/100 leukocytes in Blood by Automated count Ordered By: Ehsan Avina on 24-73-2813Kdmavfayiwk/100 WBC (Bld)18.9 %.[facility] - YoungstownComment on above:Performed By: #### CMP wRFX A1C, CBC #### [facility] [address] [place], [place] [address]H [Entitic mass] by Automated countOrdered By: Ehsan Avina on 04-06-1929RES (RBC) [Entitic mass]32.9 pg27.5-35.2FOhioHealth Dublin Methodist HospitalComment on above:Performed By: #### CMP wRFX A1C, CBC #### [facility] [address] [place] [address] Auto (RBC) [Mass/Vol]Ordered By: Ehsan Avina on 14-92-0080UJDO (RBC) [Mass/Vol]34.4 g/dL32.5-35.6FOhioHealth Dublin Methodist HospitalMCV [Entitic volume] by Automated countOrdered By: Ehsan Avina on 74-80-3577AVE (RBC) [Entitic vol]95.7 fL83.5-101[facility] - YoungstownComment on above:Performed By: #### CMP wRFX A1C, CBC #### [facility] [address] [place] [address] USAMonocytes [#/volume] in Blood by Automated countOrdered By: Ehsan Avina on 69-46-3206Lxpwlhnpc (Bld) [#/Vol]0.6 10*3/uL0.0-0.8 [facility] - YoungstownComment on above:Performed By: #### CMP wRFX A1C, CBC #### [facility] [address] [place] [address] USAMonocytes/100 leukocytes in Blood by Automated count Ordered By: Ehsan Avina on 04-06-3038Qmtgdcbuy/100 WBC (Bld)9.7 %.[facility] - YoungstownComment on above:Performed By: #### CMP wRFX A1C, CBC #### [facility] [address] [place] [address] USANeutrophils [#/volume] in Blood by Automated countOrdered By: Ehsan Avina on 61-93-0845Zgzepxumoaf (Bld) [#/Vol]3.6 10*3/uL1.8-7.7 [facility] - YoungstownComment on above:Performed By: #### CMP wRFX A1C, CBC #### [facility] [address] [place] [address] USANeutrophils/100 leukocytes in Blood by Automated count Ordered By: Ehsan Avina on 79-80-2861Jpowwitpmct/100 WBC (Bld)56.1 %.[facility] - YoungstownComment on above:Performed By: #### CMP wRFX A1C, CBC #### [facility] [address] [place] [address] USANo Panel InformationOrdered By: Ehsan Avina on 22-35-9873Qcivexwvb GFR (CKD-EPI)> 60.0 mL/MinSelect Medical Specialty Hospital - [facility] Pharmacy Creatinine Clearance (ChemN/AFOhioHealth Dublin Methodist HospitalNucleated erythrocytes [Presence] in Blood by Automated countOrdered By: Ehsan Avina on 23-07-6947Snhytojul RBC Auto Ql (Bld)0.1 /100{WBC}0-0.5FOhioHealth Dublin Methodist HospitalPlatelet mean volume [Entitic volume] in Blood by Automated count Ordered By: Eshan Avina on 97-94-1168Euydnyms mean volume (Bld) [Entitic vol] 8.1 fL6.6-10.1FOhioHealth Dublin Methodist HospitalComment on above:Performed By: #### CMP wRFX A1C, CBC #### [facility] [address] [place] [address] USAPlatelets [#/volume] in Blood by Automated countOrdered By: Ehsan Avina on 45-76-1096Zfhstgelu (Bld) [#/Vol]213 10*3/fN765-769 [facility] - YoungstownComment on above:Performed By: #### CMP wRFX A1C, CBC #### [facility] [address] [place] [address] USAPotassium [Moles/volume] in Serum or PlasmaOrdered By: Ehsan Avina on 38-29-9920Bwdxthftj [Moles/Vol]4.1 mmol/L3.5-5.1FOhioHealth Dublin Methodist HospitalComment on above:Performed By: #### CMP wRFX A1C, CBC #### [place] [address] USAProtein [Mass/volume] in Serum or PlasmaOrdered By: Ehsan Avina on 30-06-8412Pvuyopw [Mass/Vol]6.9 g/dL6.4-8.9[facility] - YoungstownComment on above:Performed By: #### CMP wRFX A1C, CBC #### [place] [address] USASerum globulin measurement by calculation (mass/volume) Ordered By: Ehsan Avina on 60-08-2832Twhcavox (S) [Mass/Vol]2.7 g/dLSelect Medical Specialty Hospital - YoungstownComment on above:Performed By: #### CMP wRFX A1C, CBC #### [facility] [address] [place] [address] USASerum or plasma albumin/globulin mass ratioOrdered By: Ehsan Avina on 36-61-2538Dycndje/Globulin [Mass ratio]1.6 {ratio}[facility] Hospital - YoungstownComment on above:Performed By: #### CMP wRFX A1C, CBC #### [address] [place] [address] USASerum or plasma anion gap determinationOrdered By: Ehsan Avina on 92-75-3285Ugjoa gap [Moles/Vol]9.4 mmol/L6.0-15.0[facility] - YoungstownComment on above:Performed By: #### CMP wRFX A1C, CBC #### [facility] [address] [place] [address] USASodium [Moles/volume] in Serum or PlasmaOrdered By: Ehsan Avina on 94-76-9575Cydfyy [Moles/Vol]137 mmol/T794-416CtinuukgdSelect Medical Specialty Hospital - YoungstownComment on above:Performed By: #### CMP wRFX A1C, CBC #### [facility] [address] [place] [address] USAUrea nitrogen [Mass/volume] in Serum or PlasmaOrdered By: Ehsan Avina on 74-67-5323Loka nitrogen [Mass/Vol]9 mg/dL7-25[facility] - YoungstownComment on above:Performed By: #### CMP wRFX A1C, CBC #### [facility] [address] [place] [address] USAX-ray reportOrdered By: Garrett Dawson on 24-22-9066Tngrp reportMARTIN MEMORIAL [facility] [address] [place] [address] XRay Report Signed Patient: Chai Arnold MR#: [id number] : 1970 Acct:[id number] Age/Sex: 54 / M ADM Date: 5 [facility]: [facility] Room: Type: [facility] Attending Dr: Ehsan Avina DO Copies [...] 10:25 PM Dictation Location: RADIO-PC-20 Transcribed By: [facility] 03/13/252224 Dictated By: Garrett Dawson DO 03/13/252220 Signed By: 03/13/252224 [facility] - YoungstownXR foot RT min 3V*on 94-05-2562LN foot RT min 3V*[facility] [address] [place] [address] XRay Report Signed Patient: Chai Arnold MR#: [id number] 2 : 1970 Acct:[id number] Age/Sex: 54 / M ADM Date: 03/13/25 [facility]: [facility] Room: Type: [facility] Attending Dr: Ehsan Avina DO Copies [...] 10:25 PM Dictation Location: RADIO-PC-20 Transcribed By: MAGDIEL 03/13/252224 Dictated By: Garrett Dawson DO 03/13/252220 Signed By: 03/13/252224[facility] Physician GroupCNPNon 29-25-5885AJHEMlkiupwii (KENIA) FRANCIACHAI Karimi ([id number]) 1970 M Date Time Provider Department 03/07/25 LYDIA DRAKE During your visit today, we recorded the following information about you: Sterling Gonzalez 03/07/2025 1:33 PM Signed Chai Rdzangelic - [phone] Patient contacted the office regarding the baclofen [...] (None) Encounter Status:Closed by STERLING GONZALEZ on 03/07/25[facility] ANORECTAL MANOMETRYon [id number] NAME: Chai Arnold PATIENT IDENTITY VERIFICATION COMPLETED USING TWO (2) IDENTIFIERS: Name and Date of confirmedby patient verbally. Referred by: Violette Maurer APRN.CNP Reason for testing: constipation Ileoanal pouch: No SENSITIVE EXAMINATION CONSENT: The sensitive examination was discussed with the Patient or Patient's Authorized Barrel Inspector Tight. Asapplicable, any other physician, advance practice provider, medical student, or other health professional student that will be observing or involved in the sensitive examination for educational or training purposes was discussed with the Patient or Authorized Barrel Inspector Tight. The Patient or Authorized Barrel Inspector Tight has agreed to proceed with the sensitive examination. 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 Aparna uGerra MD Colon & Rectal Surgery [facility]ATION[facility] ANORECTAL MANOMETRYOrdered By: Aparna Guerra on 02-28-2025 [facility] Work Phone: Radiology Study observation (narrative)[facility] Work Phone: CNNURSEon [phone] Visit ([facility]) CATALINACHAI ([id number]) 1970 M Date Time Provider Department 02/28/25 12:30 PM SAHIL BERGERON During your visit today, we recorded the following information about you: Referring Provider: VIOLETTE MAURER [[id number]] Allergies As of Date: 02/28/2025 (No Known Allergies) Date Reviewed: 02/28/2025 Reviewed by: Macey Meek OCCA - Fully Assessed Reason for Visit: Manometry [780] Visit Diagnosis:Pelvic floor dysfunction [M62.89] Order(s):[facility] ANORECTAL MANOMETRY [[id number]] Order #: [id number] Prescriptions as of 02/28/2025 - ALPRAZolam (XANAX) [...] (None) Encounter Status:Closed by SAHIL BERGERON on 02/28/25[facility] [id number] Visit (KENIA) CHAI ARNOLD ([id number]) 1970 M Date Time Provider Department 02/28/25 [...] a compounded preparation from a pharmacy in [place], and previously used hydrocortisone. He has not [...] normal and retroflexed positi (more content not included)...Normal[facility] PHYSICALon [id number] PHYSICALHNO ID: [id number] Author: LYDIA DRAKE PA-C Service: ? Author Type: Physician Construction Specialist Type: H&P Filed: 02/28/2025 13:41 Note [...] a compounded preparation from a pharmacy in [place], and previously used hydrocortisone. He has not [...] on file. No pa (more content not included)...NormalKettering Health Behavioral Medical CenterCNPNon [id number] ([facility]) CHAI ARNOLD ([id number]) 1970 M Date Time Provider Department 02/11/25 ASHLEY HAYWARD [facility] During your visit today, we recorded [...] (None) Encounter Status:Closed by CHELLE CHRISTIANSON on 02/11/25NoAshtabula General HospitalAmbulatory Visit Summaryon [id number] Visit SummaryAmbulatory Visit Summary CHAI ARNOLD :1970 [...] EDT With: Caitlyn CHAVIS, Vivian Lance Where: [facility] [address] [place] [address]- Medications What How Much When Why Instructions New plecanatide (Trulance 3 mg oral tablet) 1 Tablets By Mouth Every day Constipation Constipation by outlet dysfunction Pelvic floor dysfunction Bloating Stress-related physiological response affecting medical condition Drug dependence Refills: 4 Pickup at [facility] Unchanged amlodipine (amLODIPine 5 mg Tab) [...] physician if questions or concerns Pharmacy Information [facility]: [address] [place], [place] [id number] [phone] Allergies No Known Medication Allergies Problems Ongoing [...] you for choosing us for your care. [facility]/Clinic Noteon [id number] Office/Clinic NoteGastroenterology Office/Clinic Note Chief Complaint constipation- [...] him. Will refer to GI psychology at [facility] Advised to use squatty potty and [...] days could not see a provider at [facility] Review of Systems PHQ Score Initial [...] Daily, # 30 tab(s), Refills(s) 4, Pharmacy: [facility], 173, cm, 01/24/25 10:35:00 EDT, Height/Length Dosing, 86.3, kg, 01/24/25 10:35:00 EDT, Weight Dosing 2. Constipation by outlet dysfunction (K59.02: Outlet dysfunction constipation) Ordered: plecanatide, 3 mg = 1 tab(s), Oral, Daily, # 30 tab(s), Refills(s) 4, Pharmacy: [facility], 173, cm, 01/24/25 10:35:00 EDT, Height/Length Dosing, 86.3, kg, 01/24/25 10:35:00 EDT, Weight Dosing 3. Pelvic floor dysfunction (M62.89: Other specified disorders of muscle) Ordered: plecanatide, 3 mg = 1 tab(s), Oral, Daily, # 30 tab(s), Refills(s) 4, Pharmacy: [facility], 173, cm, 01/24/25 10:35:00 EDT, Height/Length Dosing, 86.3, kg, 01/24/25 10:35:00 EDT, Weight Dosing 4. Bloating (R14.0: Abdominal distension (gaseous)) Ordered: plecanatide, 3 mg = 1 tab(s), Oral, Daily, # 30 tab(s), Refills(s) 4, Pharmacy: [facility], 173, cm, 01/24/25 10:35:00 EDT, Height/Length Dosing, 86.3, kg, 01/24/25 10:35:00 EDT, Weight Dosing 5. Stress-related physiological response affecting medical condition (F54: Psychological and behavioral factors associated with disorders or diseases classified elsewhere) Ordered: (more content not included)...[facility] CenterComment on above:Result Comment: Electronically Signed By: Vivian Brady MD\.br\Date and Time Signed: 01/24/2510:46 EDTAmbulatory Visit Summaryon 38-29-6854Elyycwhrff Visit SummaryAmbulatory Visit Summary CHAI ARNOLD :1970 Visit Date:01/09/2025 Ambulatory Visit Instructions Your Diagnosis Constipation Constipation by outlet dysfunction Pelvic floor dysfunction Bloating Stress-related physiological response affecting medical condition Your Care Team Attending Physician - Vivian Brady MD. Primary Care Physician - CISCO BONILLA DO [...] Will Contact You Regarding These Appointments [facility]erral, Gastroenterology, 01/09/25 13:16:00 EDT, [...] you for choosing us for your care. [facility] CenterGastroenterology Office/Clinic Noteon [phone] Office/Clinic NoteGastroenterology Office/Clinic Note Chief Complaint Alternating bowels, bloating severe cramping and anxiety HPI Staff NEW, 54 year old male who presents today for a referral by Dr Furlong for complaints of IBS with a change [...] him. Will refer to GI psychology at [facility] Advised to use squatty potty and [...] BNT-162b2 vax 11/18/2020 Recorded (more content not included)...[facility] CenterComment on above: Result Comment: Electronically Signed By: Caitlyn CHAVIS, Vivian Larios.br\Date and Time Signed: 01/09/2513:17 EDTCOMPLETE BLOOD COUNTon 82-91-7625Ixbmsfiligk distribution width (RBC) [Ratio]13.5 %Ulddrj89.5-15.0[facility] Comment on above:Performed By: #### CBC, CMP, 2498-4, 62328-0, 2857-1, TSHR #### [facility] ([id number]) [address], [address] [place], [place] [address]Vwybavkwsg (Bld) [Volume fraction]48.2 %Hxetuz37-97ScpQifawrLancaster Municipal HospitalComment on above:Performed By: #### CBC, CMP, 2498-4, 16011-1, 2857-1, TSHR #### [facility] ([id number]) [address], [address] [place], [place] [address]Iszaumzauu (Bld) [Mass/Vol]16.1 g/oCXjbhss64.0-17.0ProLancaster Municipal HospitalComment on above:Performed By: #### CBC, CMP, 2498-4, 53131-6, 2857-1, TSHR #### [facility] ([id number]) [address], [address] [place], [place] [address]XJI (RBC) [Entitic mass]31.9 ivVwnwcc67-60LsrEhcaxj [place] HospitalComment on above:Performed By: #### CBC, CMP, 2498-4, 62295-2, 2857-1, TSHR #### [facility] ([id number]) [address], [address] [place], [place] [address]UFVJ (RBC) [Mass/Vol]33.4 g/sZBuhnpf18-42StgKjgaak [facility] HospitalComment on above:Performed By: #### CBC, CMP, 2498-4, 94746-3, 2857-1, TSHR #### [facility] ([id number]) [address], [address] [place], [place] [address]NBU (RBC) [Entitic vol]96 mLRorbyv39-065DguTktuud [facility] HospitalComment on above:Performed By: #### CBC, CMP, 2498-4, 80287-3, 2857-1, TSHR #### [facility] ([id number]) [address], [address] [place], [place] [address]Vjlpzrib mean volume (Bld) [Entitic vol]9.6 fLNormal7-12 [facility] HospitalComment on above:Performed By: #### CBC, CMP, 2498-4, 62451-9, 2857-1, TSHR #### [facility] ([id number]) [address], [address] [place], [place] [address]Otegcnulq (Bld) [#/Vol]184 10*3/uOFsguwb941-496LixRelkbz [facility] HospitalComment on above:Performed By: #### CBC, CMP, 2498-4, 75934-4, 2857-1, TSHR #### [facility] ([id number]) [address], [address] [place], [place] [address]EIV COUNT5.04 X10E12/LNormal4.10-5.70[facility] Comment on above:Performed By: #### CBC, CMP, 2498-4, 28902-0, 2857-1, TSHR #### [facility] ([id number]) [address], [address] [place], [place] [address]GDQ (Bld) [#/Vol]5.2 10*3/uLNormal4.0-11.0Pro[facility] HospitalComment on above:Performed By: #### CBC, CMP, 2498-4, 30273-9, 2857-1, TSHR #### [facility] ([id number]) [address], [address] [place], [place] [address]QNBVPWORYRUEA METABOLIC PANELon 67-70-5466Ndydnzv [Mass/Vol]4.5 g/dLNormal3.2-5.3Pro[facility] HospitalComment on above:Performed By: #### CBC, CMP, 2498-4, 91706-4, 2857-1, TSHR #### [facility] ([id number]) [address], [address] [place], [place] [address]WSU [Catalytic activity/Vol]101 U/AHqspxd85-204HhrRbashr [facility] HospitalComment on above:Performed By: #### CBC, CMP, 2498-4, 57848-7, 2857-1, TSHR #### [facility] ([id number]) [address], [address] [place], [place] [address]BXC [Catalytic activity/Vol]38 U/LNormal0-40[facility] HospitalComment on above:Performed By: #### CBC, CMP, 2498-4, 18424-8, 2857-1, TSHR #### [facility] ([id number]) [address], [address] [place], [place] [address]Luvxv gap [Moles/Vol]11 mmol/LNormal5-15[facility] HospitalComment on above:Performed By: #### CBC, CMP, 2498-4, 18760-2, 2857-1, TSHR #### [facility] ([id number]) [address], [address] [place], [place] [address]EIR [Catalytic activity/Vol]28 U/LNormal0-41[facility] HospitalComment on above:Performed By: #### CBC, CMP, 2498-4, 23001-9, 2857-1, TSHR #### [facility] ([id number]) [address], [address] [place], [place] [address]Xpyrnvbdo [Mass/Vol]0.6 mg/dLNormal0.3-1.2POhioHealth O'Bleness Hospital HospitalComment on above:Performed By: #### CBC, CMP, 2498-4, 80821-1, 2857-1, TSHR #### [facility] ([id number]) [address], [address] [place], [place] [address]Wvjzypu [Mass/Vol]9.6 mg/dLNormal8.5-10.5POhioHealth O'Bleness Hospital HospitalComment on above:Performed By: #### CBC, CMP, 2498-4, 79710-9, 2857-1, TSHR #### [facility] ([id number]) [address], [address] [place], [place] [address]Dythmmmy [Moles/Vol]105 mmol/PJgjqvb82-413MtwNixtjj [place] HospitalComment on above:Performed By: #### CBC, CMP, 2498-4, 06829-7, 2857-1, TSHR #### [facility] ([id number]) [address], [address] [place], [place] [address]ET5 [Moles/Vol]26 mmol/JNmvmrx36-32YcrFjqurl [facility] Comment on above:Performed By: #### CBC, CMP, 2498-4, 66511-7, 2857-1, TSHR #### [facility] ([id number]) [address], [address] [place], [place] [address]Pvwlyrizgf [Mass/Vol]0.94 mg/dLNormal0.60-1.30ProMercy Health St. [facility] HospitalComment on above:Result Comment: METHOD TRACEABLE TO IDMS STANDARD Performed By: #### CBC, CMP, 2498-4, 72423-2, 2857-1, TSHR #### [facility] ([id number]) [address] [place], [place] [address]xYEV (CKD-EPI) NON-RACE DEPENDENT>90Normal>59ProLancaster Municipal HospitalComment on above:Result Comment: Reported eGFR is based on the CKD-EPI 2020 equation that does not use a race coefficient.Performed By: #### ALEXANDRIA GARCIA, 2498-4, 19283-6, 2857-1, TSHR #### [facility] ([id number]) [address] [place], [place] [address]Ejdmrqp [Mass/Vol]86 mg/lJVwqpnv20-79ImzDzytktMercy Health Fairfield Hospital Comment on above:Performed By: #### JOSE, ALEXANDRIA, 2498-4, 14100-0, 2857-1, TSHR #### [facility] ([id number]) [address] [place], [place] [address]Opqerhuzv [Moles/Vol]4.2 mmol/LNormal3.5-5.0ProLancaster Municipal HospitalComment on above:Performed By: #### ALEXANDRIA GARCIA, 2498-4, 63524-4, 2857-1, TSHR #### [facility] ([id number]) [address] [place], [place] [address]Xuiaohp [Mass/Vol]7.4 g/dLNormal6.0-8.0[facility] Comment on above:Performed By: #### JOSE, ALEXANDRIA, 2498-4, 83709-7, 2857-1, TSHR #### [facility] ([id number]) [address] [place], [place] [address]Sczxva [Moles/Vol]142 mmol/YWlbfhb053-957NrdMjwico [place] HospitalComment on above:Performed By: #### JOSE, CMP, 2498-4, 21144-4, 2857-1, TSHR #### [facility] ([id number]) [address] [place], [place] [address]Dcze nitrogen [Mass/Vol]13 mg/dLNormal5-23ProMercy Health St. [facility] HospitalComment on above:Performed By: #### CBC, CMP, 2498-4, 06355-4, 2857-1, TSHR #### [facility] ([id number]) [address], [address] [place] [address]PVVQbf 36-12-2304Gfjx [Mass/Vol]184 ug/sVMviaiu39-903SuqXkouhp [place] HospitalComment on above:Performed By: #### JOSE, CMP, 2498-4, 28121-7, 2857-1, TSHR #### [facility] ([id number]) [address] [place], [place] [address]Xfwri 1996 panelon 15-62-5554Zuyakulupkx [Mass/Vol]183 mg/dL Ladabe974-882LnrDgbkuu [place] HospitalComment on above:Performed By: #### JOSE, CMP, 2498-4, 26968-0, 2857-1, TSHR #### [facility] ([id number]) [address] [place], [place] [address]Njmiwlhhzac in HDL [Mass/Vol]38 mg/dLLow>39ProLancaster Municipal HospitalComment on above:Result Comment: HDL <40 mg/dL - High Risk HDL > or = 40mg/dL- Desirable HDL >60 mg/dL - Negative Risk Performed By: #### CBC, CMP, 2498- 4, 45416-6, 2857-1, TSHR #### [facility] ([id number]) [address], [address] [place], [place] [address]Ilwsiyztrjx in LDL [Mass/Vol]121 mg/dLNormal<130ProMercy Health St. [facility] HospitalComment on above:Result Comment: LDL <100 mg/dL - Desirable LDL >160 mg/dL - High Risk Performed By: #### CBC, CMP, 2498- 4, 87681-1, 2857-1, TSHR #### [facility] ([id number]) [address], [address] [place], [place] [address]Lojyvfxtiml in VLDL [Mass/Vol]24 mg/dLNormal0-30ProLancaster Municipal HospitalComment on above:Performed By: #### CBC, CMP, 2498-4, 47424-5, 2857-1, TSHR #### [facility] ([id number]) [address], [address] [place], [place] [address]EYJQCSGQCWR:HDL4.6Malfiq9.0-5.0ProLancaster Municipal HospitalComment on above:Performed By: #### CBC, CMP, 2498-4, 00920-8, 2857-1, TSHR #### [facility] ([id number]) [address], [address] [place], [place] [address]Ruqiuykoylps [Mass/Vol]119 mg/zJYvscce72-150OocUgpfnj [place] HospitalComment on above:Performed By: #### CBC, CMP, 2498-4, 27010-6, 2857-1, TSHR #### [facility] ([id number]) [address], [address] [place], [place] [address]Cjwnwjfh specific Ag [Mass/Vol]on 09-29-3513UBH SCREEN0.57 ng/mL Normal0.00-4.00ProLancaster Municipal HospitalComment on above:Result Comment: The method used for this test is Graciela ClearCycle DXI chemiluminescent immunoassay. Values obtained by different assay methods cannot be used interchangeably.Performed By: #### CBC, CMP, 2498-4, 58758-0, 2857-1, TSHR #### [facility] ([id number]) [address], [address] [place] [address]OAE WITH REFLEXon 77-71-5469IYZ1.34 uIU/mLNormal0.49-4.67 [facility] HospitalComment on above:Performed By: #### CBC, CMP, 2498-4, 51402-2, 2857-1, TSHR #### [facility] ([id number]) [address], [address] [address]FJQCXCUU BLOOD COUNTon 81-31-6789Qcfzvgszqdl distribution width (RBC) [Ratio]13.4 %Paloev71.5-15.0ProMercy Health St. Charles Hospital HospitalComment on above: Performed By: #### CBC, CMP, 2857-1, TSHR #### [facility] ([id number]) [address] [address]Nwicolrkif (Bld) [Volume fraction]47.4 %Ycejgs41-61QmjRnghun [place] HospitalComment on above:Performed By: #### CBC, CMP, 2857-1, TSHR #### [facility] ([id number]) [address] [address]Lfmyqwpzuy (Bld) [Mass/Vol]16.4 g/xJNcqlac87.0-17.0ProMercy Health St. [facility] HospitalComment on above:Performed By: #### CBC, CMP, 2857-1, TSHR #### [facility] ([id number]) [address], [facility] [address] [place], [place] [address]JQP (RBC) [Entitic mass]32.4 ivPwjynq78-50EbsXwkopw [place] HospitalComment on above:Performed By: #### CBC, CMP, 2857-1, TSHR #### [facility] ([id number]) [address], [address] [place], [place] [address]QPFB (RBC) [Mass/Vol]34.6 g/bVRvyxto13-30GafCyfwok [facility] HospitalComment on above:Performed By: #### CBC, CMP, 2857-1, TSHR #### [facility] ([id number]) [address], [address] [place], [place] [address]DQX (RBC) [Entitic vol]94 fGRhfpah98-812ByrScrrcu [facility] HospitalComment on above:Performed By: #### CBC, CMP, 2857-1, TSHR #### [facility] ([id number]) [address], [address] [place], [place] [address]Kvsksbbk mean volume (Bld) [Entitic vol]9.4 fLNormal7-12 [facility] HospitalComment on above:Performed By: #### CBC, CMP, 2857-1, TSHR #### [facility] ([id number]) [address], [address] [place], [place] [address]Orjhasxgd (Bld) [#/Vol]235 10*3/fMPmsuhi525-957BtiEjrybb [facility] HospitalComment on above:Performed By: #### CBC, CMP, 2857-1, TSHR #### [facility] ([id number]) [address], [address] [place], [place] [address]DSI COUNT5.06 X10E12/LNormal4.10-5.70ProMer[facility] St[facility] Hospital Comment on above:Performed By: #### CBC, CMP, 2857-1, TSHR #### [facility] ([id number]) [address], [address] [place], [place] [address]CYV (Bld) [#/Vol]7.0 10*3/uLNormal4.0-11.0ProGuernsey Memorial Hospitalca [facility] HospitalComment on above:Performed By: #### CBC, CMP, 2857-1, TSHR #### [facility] ([id number]) [address], [address] [facility] [place] [address]HZBNIVYTOHNTQ METABOLIC PANELon 62-59-7818Pvbkwxu [Mass/Vol]4.5 g/dLNormal3.2-5.3[facility] HospitalComment on above:Performed By: #### CBC, CMP, 2857-1, TSHR #### [facility] ([id number]) [address], [address] [place] [address]SNV [Catalytic activity/Vol]133 U/QKgog75-313YzsUycwwn [facility] HospitalComment on above:Performed By: #### CBC, CMP, 2857-1, TSHR #### [facility] ([id number]) [address], [address] [place] [address]HWP [Catalytic activity/Vol]20 U/LNormal0-40[facility] HospitalComment on above:Performed By: #### CBC, CMP, 2857-1, TSHR #### [facility] ([id number]) [address] [place], [place] [address]Qaflc gap [Moles/Vol]10 mmol/LNormal5-15[facility] HospitalComment on above:Performed By: #### CBC, CMP, 2857-1, TSHR #### [facility] ([id number]) [address], [address] [place], [place] [address]ZWY [Catalytic activity/Vol]26 U/LNormal0-41[facility] HospitalComment on above:Performed By: #### CBC, CMP, 2857-1, TSHR #### [facility] ([id number]) [address], [address] [place], [place] [address]Pdpldhhqx [Mass/Vol]0.8 mg/dLNormal0.3-1.2[facility] HospitalComment on above:Performed By: #### CBC, CMP, 2857-1, TSHR #### [facility] ([id number]) [address], [address] [place], [place] [address]Spvsytj [Mass/Vol]9.6 mg/dLNormal8.5-10.5POhioHealthComment on above:Performed By: #### ALEXANDRIA GARCIA, 2857-1, TSHR #### [facility] ([id number]) [address], [address] [place], [place] [address]Asljhpyp [Moles/Vol]103 mmol/HEjojto85-380OwcHctrro [place] HospitalComment on above:Performed By: #### ALEXANDRIA GARCIA, 2857-1, TSHR #### [facility] ([id number]) [address], [address] [place], [place] [address]SU3 [Moles/Vol]27 mmol/BTjvidn06-83IxbUpefam [facility] Comment on above:Performed By: #### ALEXANDRIA GARCIA, 2857-1, TSHR #### [facility] ([id number]) [address], [address] [place], [place] [address]Dwpwzqhezg [Mass/Vol]1.05 mg/dLNormal0.60-1.30ProLancaster Municipal HospitalComment on above:Result Comment: METHOD TRACEABLE TO IDMS STANDARD Performed By: #### ALEXANDRIA GARCIA, 2857-1, TSHR #### [facility] ([id number]) [address] [place], [place] [address]QUX/1.73 sq M.predicted among non-blacks MDRD (S/P/Bld) [Vol rate/Area]83 mL/min/{1.73_m2}Normal>59ProLancaster Municipal HospitalComment on above: Result Comment: Reported eGFR is based on the CKD-EPI 2020 equation that does not use a race coefficient.Performed By: #### ALEXANDRIA GARCIA, 2857-1, TSHR #### [facility] ([id number]) [address], [address] [place], [place] [address]Kcvwwbc [Mass/Vol]87 mg/eOSabyui51-08XuhIetykd [facility] Comment on above:Performed By: #### CBC CMP, 2857-1, TSHR #### [facility] ([id number]) [address], [address] [place], [place] [address]Apjfysfol [Moles/Vol]3.9 mmol/LNormal3.5-5.0ProMer[facility] HospitalComment on above:Performed By: #### CBC, CMP, 2857-1, TSHR #### [facility] ([id number]) [address], [address] [place], [place] [address]Uekwshf [Mass/Vol]7.3 g/dLNormal6.0-8.0[facility] Comment on above:Performed By: #### JOSE CMP, 2857-1, TSHR #### [facility] ([id number]) [address], [address] [place], [place] [address]Mwmqtx [Moles/Vol]140 mmol/RZmoily641-187TpmKnclam [place] HospitalComment on above:Performed By: #### ALEXANDRIA GARCIA, 2857-1, TSHR #### [facility] ([id number]) [address], [address] [place], [place] [address]Snxl nitrogen [Mass/Vol]6 mg/dLNormal5-23ProLancaster Municipal HospitalComment on above:Performed By: #### CBC, CMP, 2857-1, TSHR #### [facility] ([id number]) [address], [address] [place], [place] [address]Fmilbozi specific Ag [Mass/Vol]on 90-57-3807ITC SCREEN0.71 ng/mL Normal0.00-4.00ProLancaster Municipal HospitalComment on above:Result Comment: The method used for this test is Graciela Shashi DXI chemiluminescent immunoassay. Values obtained by different assay methods cannot be used interchangeably.Performed By: #### CBC, CMP, 2857-1, TSHR #### [facility] ([id number]) [address] [place], [place] [address]GLJ WITH REFLEXon 74-36-9449IAK9.29 uIU/mLNormal0.49-4.67 [facility] Comment on above:Performed By: #### CBC, CMP, 2857-1, TSHR #### [facility] ([id number]) [address] [place], [place] [address]Nlzrjyti [Presence] in Urine by AutomatedOrdered By: Nish Davidson on 12-37-9607Etmaifts Auto Ql (U)None seen [HPF]None SeenSelect Medical Specialty Hospital - YoungstownBasophils Auto (Bld) [#/Vol]Ordered By: James De on 03-03-2024 Basophils (Bld) [#/Vol]0.0 10*3/uL0.0-0.2FOhioHealth Dublin Methodist Hospital Basophils/100 WBC Auto (Bld)Ordered By: James De on 09-68-4282Dinytsrrt/100 WBC (Bld)0.4 %.[facility] YoungstownBilirubin Test strip Ql (U) Ordered By: Nish Davidson on 88-91-6000Devuwhass Ql (U)NegativeNegativeSelect Medical Specialty Hospital - YoungstownCalcium [Mass/volume] in Serum or PlasmaOrdered By: James De on 25-78-1449Nxhtvyq [Mass/Vol]9.5 mg/dL8.6-10.3FOhioHealth Dublin Methodist HospitalCarbon dioxide, total [Moles/volume] in Serum or PlasmaOrdered By: James De on 61-50-4495VO8 [Moles/Vol]25.3 mmol/L21.0-31.0[facility] YoungstownChloride [Moles/volume] in Serum or PlasmaOrdered By: James De on 49-41-9504Lhkhbpri [Moles/Vol]102 mmol/R84-524LtxcegnrfSelect Medical Specialty Hospital - YoungstownColor Auto (U)Ordered By: Nish Davidson on 54-26-9337Kqimh (U)Yellow YellowSelect Medical Specialty Hospital - YoungstownCreatinine [Mass/volume] in Serum or PlasmaOrdered By: James De on 25-93-9467Onkfcukxbi [Mass/Vol]1.18 mg/dL 0.70-1.30[facility] YoungstownEosinophils Auto (Bld) [#/Vol]Ordered By: James De on 62-35-0597Isooqkyxtmw (Bld) [#/Vol]0.2 10*3/uL0.0-0.45 [facility] YoungstownEosinophils/100 WBC Auto (Bld)Ordered By: James De on 42-21-0269Qtnyzqvyoup/100 WBC (Bld)2.6 %.[facility] YoungstownEpithelial cells.squamous [#/area] in Urine sediment by Automated countOrdered By: Nish Davidson on 86-90-2420Xdwrfuuwif cells.squamous Auto (Urine sed) [#/Area]1-2 [HPF]0-2FOhioHealth Dublin Methodist HospitalErythrocyte distribution width Auto (RBC) [Ratio]Ordered By: James De on 03-03-2024 Erythrocyte distribution width (RBC) [Ratio]12.6 %12.0-14.8[facility] YoungstownErythrocytes [#/area] in Urine sediment by Automated countOrdered By: Nish Davidson on 09-33-7940ZXW Auto (Urine sed) [#/Area]None seen [HPF]0-4 [facility] YoungstownGlucose [Mass/volume] in Serum or PlasmaOrdered By: James De on 33-45-2978Swxushg [Mass/Vol]83 mg/mT56-676UgncwsjbqSelect Medical Specialty Hospital - YoungstownComment on above:ADA recommended reference rangeRandom Glucose Reference Range is dependent on time and content of last meal. Glucose of more than 200 mg/dL in a nonstressed, ambulatory subject supports the diagnosisof Diabetes Mellitus.Glucose [Mass/volume] in Urine by Test strip Ordered By: Nish Davidson on 38-19-1896Ouuhtto Test strip (U) [Mass/Vol]Normal mg/dLNormalSelect Medical Specialty Hospital - YoungstownHematocrit Auto (Bld) [Volume fraction]Ordered By: James De on 08-60-1804Aiofswphky (Bld) [Volume fraction]52.6 %High38.8-50.0[facility] YoungstownHemoglobin Test strip Ql (U)Ordered By: Nish Davidson on 10-34-3662Dkekexqkvv Ql (U)Negative NegativeSelect Medical Specialty Hospital - YoungstownHemoglobin [Mass/volume] in Blood Ordered By: James De on 86-90-6077Gciopegloa (Bld) [Mass/Vol]18.5 g/dLHigh 13.0-17.0[facility] YoungstownHyaline casts [#/area] in Urine sediment by Automated countOrdered By: Nish Davidson on 97-50-1182Kgtxelc casts Auto (Urine sed) [#/Area]0-8 [LPF]0-8[facility] - YoungstownKetones Test strip Ql (U)Ordered By: Nish Davidson on 58-55-6945Tsiurmh Ql (U)2+High NegativeSelect Medical Specialty Hospital - YoungstownLeukocyte esterase [Presence] in Urine by Test stripOrdered By: Nish Davidson on 53-70-1025Rctkohasj esterase Test strip Ql (U)NegativeNegativeSelect Medical Specialty Hospital - YoungstownLeukocytes [#/area] in Urine sediment by Automated countOrdered By: Nish Davidson on 35-28-9525FUU Auto (Urine sed) [#/Area]1-2 [HPF]0-4FOhioHealth Dublin Methodist HospitalLeukocytes [#/volume] corrected for nucleated erythrocytes in Blood by Automated coun Ordered By: James De on 63-89-8934NVI corrected for nucl RBC Auto (Bld) [#/Vol]9.0 10*3/uL4.1-10.5FOhioHealth Dublin Methodist HospitalLymphocytes Auto (Bld) [#/Vol]Ordered By: James De on 57-61-7720Acjesjvonuc (Bld) [#/Vol]1.2 10*3/uL1.00-4.8[facility] YoungstownLymphocytes/100 WBC Auto (Bld) Ordered By: James De on 81-82-2697Pdzzakxeiyg/100 WBC (Bld)13.4 %.[facility] YoungstownMC Auto (RBC) [Entitic mass]Ordered By: James De on 37-32-3511MDF (RBC) [Entitic mass]32.8 pg27.5-35.2FOhioHealth Dublin Methodist HospitalMCHC Auto (RBC) [Mass/Vol]Ordered By: James De on 75-15-3593YKPF (RBC) [Mass/Vol]35.1 g/dL32.5-35.6FOhioHealth Dublin Methodist HospitalMCV Auto (RBC) [Entitic vol]Ordered By: James De on 18-95-7872EFI (RBC) [Entitic vol]93.4 fL83.5-101[facility] YoungstownMonocyte distribution width [Entitic volume] in Blood by AutomatedOrdered By: James De on 96-41-2904Tfftucgi distribution width Auto (Bld) [Entitic vol]17.08 %0.00-20.00[facility] YoungstownMonocytes Auto (Bld) [#/Vol]Ordered By: James De on 03-03-2024 Monocytes (Bld) [#/Vol]0.8 10*3/uL0.0-0.8[facility] [place] Monocytes/100 WBC Auto (Bld)Ordered By: James De on 04-58-3633Qmvafgwdg/100 WBC (Bld)8.7 %.[facility] YoungstownMucus [Presence] in Urine by AutomatedOrdered By: Nish Davidson on 89-34-4664Fpnmn Auto Ql (U)1+ [LPF]Abnormal [facility] YoungstownNeutrophils Auto (Bld) [#/Vol]Ordered By: James De on 30-08-6434Xnqkuxbnkot (Bld) [#/Vol]6.7 10*3/uL1.8-7.7FOhioHealth Dublin Methodist HospitalNeutrophils/100 WBC Auto (Bld)Ordered By: James De on 86-75-3076Vuuszphqukv/100 WBC (Bld)74.9 %.[facility] Nitrite Test strip Ql (U)Ordered By: Nish Davidson on 04-15-0916Hmfcclz Ql (U) NegativeNegativeSelect Medical Specialty Hospital - YoungstownNo Panel InformationOrdered By: James De on 28-21-2430Umpqzzioh GFR (CKD-EPI)> 60.0 mL/MinSelect Medical Specialty Hospital - YoungstownPharmacy Creatinine Clearance (Chem68.43[facility] YoungstownNucleated erythrocytes [Presence] in Blood by Automated countOrdered By: James De on 93-65-2057Ufaorlbgf RBC Auto Ql (Bld)0.4 /100{WBC}0-0.5FOhioHealth Dublin Methodist HospitalPlatelet adequacy [Presence] in Blood by Light microscopyOrdered By: James De on 52-59-9498Ukysxpagb LM Ql (Bld)NormalNoKettering Health Behavioral Medical CenterPlatelet mean volume Auto (Bld) [Entitic vol]Ordered By: James De on 44-24-1736Hwisiqwu mean volume (Bld) [Entitic vol]8.4 fL6.6-10.1FOhioHealth Dublin Methodist HospitalPlatelet morphology finding [Identifier] in BloodOrdered By: James De on 03-03-2024 Platelet morphology finding Nom (Bld)NormalNoKettering Health Behavioral Medical CenterPlatelets Auto (Bld) [#/Vol]Ordered By: James De on 03-03-2024 Platelets (Bld) [#/Vol]207 10*3/kB284-142CzwoqppmySelect Medical Specialty Hospital - [place]stown Potassium [Moles/volume] in Serum or PlasmaOrdered By: James De on 53-29-4879Jceyeievn [Moles/Vol]3.7 mmol/L3.5-5.1FOhioHealth Dublin Methodist HospitalProtein Test strip (U) [Mass/Vol]Ordered By: Nish Davidson on 03-03-2024 Protein (U) [Mass/Vol]Trace mg/dLHighNegativeSelect Medical Specialty Hospital - [place] RBC Auto (Bld) [#/Vol]Ordered By: James De on 32-08-3065QCK (Bld) [#/Vol] 5.64 10*6/uLHigh3.90-5.60[facility] YoungstownRBC morphologyOrdered By: James De on 34-57-0761RGP morphology finding Nom (Bld)NormalFulton County Health Centererum or plasma anion gap determinationOrdered By: James De on 24-61-3414Bcrcp gap [Moles/Vol]12.4 mmol/L6.0-15.0German Hospitalodium [Moles/volume] in Serum or PlasmaOrdered By: James De on 97-86-6611Ntmeie [Moles/Vol]136 mmol/Q321-473MvrqwbpsxGerman Hospitalpecific gravity Test strip (U) [Rel density]Ordered By: Nish Davidson on 92-45-0810Vflqtkmd gravity (U) [Rel density]1.0151.001-1.030[facility] YoungstownTransitional cells [#/area] in Urine by Computer assisted methodOrdered By: Nish Davidson on 30-30-9272Hfarxaugjuob cells Computer assisted (U) [#/Area]1-2 [HPF]High0-1FOhioHealth Dublin Methodist HospitalUrea nitrogen [Mass/volume] in Serum or PlasmaOrdered By: James De on 90-43-3939Biob nitrogen [Mass/Vol]8 mg/dL7-25[facility] YoungstownUrine appearance Ordered By: Nish Davidson on 52-36-6956Tqkjcsueyo (U)ClearCleFostoria City HospitalUrobilinogen Test strip (U) [Mass/Vol]Ordered By: Nish Davidson on 21-76-8452Xbqmgftmhmau (U) [Mass/Vol]Normal mg/dLNormalSelect Medical Specialty Hospital - YoungstownWBC Auto (Bld) [#/Vol]Ordered By: James De on 29-40-9687HVK (Bld) [#/Vol]9.0 10*3/uL4.1-10.5FOhioHealth Dublin Methodist HospitalpH Test strip (U)Ordered By: Nish Davidson on 50-98-5381uO (U)6.0 [pH]5.0-9.0[facility] YoungstownAlanine aminotransferase [Enzymatic activity/volume] in Serum or PlasmaOrdered By: Ty Winkler on 68-03-2383LKS [Catalytic activity/Vol]24 U/L7-52 [facility] YoungstownAlbumin [Mass/volume] in Serum or Plasma by Bromocresol green (BCG) dye binding methoOrdered By: Ty Winkler on 01-29-2024 Albumin BCG dye [Mass/Vol]4.9 g/dL3.5-5.7FOhioHealth Dublin Methodist Hospital Alkaline phosphatase [Enzymatic activity/volume] in Serum or PlasmaOrdered By: Ty Winkler on 27-27-1870VON [Catalytic activity/Vol]96 U/I46-794GddcdqcrzSelect Medical Specialty Hospital - YoungstownAmylase [Enzymatic activity/volume] in Serum or Plasma Ordered By: Ty Winkler on 97-90-9519Tcoxksu [Catalytic activity/Vol]47 U/L29-103 [facility] YoungstownAspartate aminotransferase [Enzymatic activity/volume] in Serum or PlasmaOrdered By: Ty Winkler on 76-52-4947KWW [Catalytic activity/Vol]21 U/O86-34GiskdjrdqSelect Medical Specialty Hospital - YoungstownBasophils Auto (Bld) [#/Vol]Ordered By: Ty Winkler on 14-27-1162Xjlrowjus (Bld) [#/Vol]N/A [facility] YoungstownBasophils/100 WBC Auto (Bld)Ordered By: Ty Winkler on 04-78-2141Ynfvjyrzw/100 WBC (Bld)N/AFOhioHealth Dublin Methodist Hospital Bilirubin Test strip Ql (U)Ordered By: Ty Winkler on 28-69-7691Yjhfdsqxc Ql (U) NegativeNegativeSelect Medical Specialty Hospital - YoungstownBilirubin.direct [Mass/volume] in Serum or PlasmaOrdered By: Ty Winkler on 88-19-3977Jwkcehljz.direct [Mass/Vol]0.10 mg/dL0.03-0.18FOhioHealth Dublin Methodist HospitalBilirubin.total [Mass/volume] in Serum or PlasmaOrdered By: Ty Winkler on 51-09-9204Jkfwzevok [Mass/Vol]0.8 mg/dL0.3-1.0[facility] YoungstownCalcium [Mass/volume] in Serum or PlasmaOrdered By: Ty Winkler on 16-37-7803Nyuroqa [Mass/Vol]10.2 mg/dL8.6-10.3FOhioHealth Dublin Methodist HospitalCarbon dioxide, total [Moles/volume] in Serum or PlasmaOrdered By: Ty Winkler on 38-75-1969II5 [Moles/Vol]26.4 mmol/L21.0-31.0[facility] YoungstownChloride [Moles/volume] in Serum or PlasmaOrdered By: Ty Winkler on 95-35-8936Tenrnwfv [Moles/Vol]98 mmol/J01-700BgquhocbqSelect Medical Specialty Hospital - YoungstownColor Auto (U)Ordered By: Ty Winkler on 81-87-9870Sfymf (U)ColorlessYellowSelect Medical Specialty Hospital - YoungstownCreatinine [Mass/volume] in Serum or PlasmaOrdered By: Ty Winkler on 60-64-0370Sdalfjxduo [Mass/Vol]1.07 mg/dL0.70-1.30[facility] YoungstownEosinophils Auto (Bld) [#/Vol]Ordered By: Ty Winkler on 01-29-2024 Eosinophils (Bld) [#/Vol]N/AFOhioHealth Dublin Methodist HospitalEosinophils/100 WBC Auto (Bld)Ordered By: Ty Winkler on 97-57-7185Svttdpnolwd/100 WBC (Bld)N/A [facility] YoungstownEosinophils/100 WBC Manual cnt (Bld)Ordered By: Ty Winkler on 10-26-4756Pwtbxraygyi/100 WBC (Bld)5 %High1-3FOhioHealth Dublin Methodist HospitalErythrocyte distribution width Auto (RBC) [Ratio]Ordered By: Ty Winkler on 32-28-5664Ptqchxspapw distribution width (RBC) [Ratio]12.1 %12.0-14.8 [facility] YoungstownGiant platelets/100 leukocytes [Ratio] in Blood by Manual countOrdered By: Ty Winkler on 15-30-0160Hcakl platelets/100 WBC Manual cnt (Bld) [Ratio]1 /100{WBC}[facility] YoungstownGlobulin Calc (S) [Mass/Vol]Ordered By: Ty Winkler on 73-05-1888Ikwcqvba (S) [Mass/Vol] 3.1 g/dLSelect Medical Specialty Hospital - YoungstownGlucose [Mass/volume] in Serum or PlasmaOrdered By: Ty Winkler on 80-08-1977Wgvrsqe [Mass/Vol]103 mg/dAYlsr76-192 [facility] YoungstownComment on above:ADA recommended reference rangeRandom Glucose Reference Range is dependent on time and content of last meal. Glucose of more than 200 mg/dL in a nonstressed, ambulatory subject supports the diagnosisof Diabetes Mellitus.Glucose [Mass/volume] in Urine by Test stripOrdered By: Ty Winkler on 25-46-3913Hsqjsdh Test strip (U) [Mass/Vol] Normal mg/dLNormalSelect Medical Specialty Hospital - YoungstownHematocrit Auto (Bld) [Volume fraction]Ordered By: Ty Winkler on 07-98-4132Vyhmissojl (Bld) [Volume fraction] 54.1 %High38.8-50.0[facility] YoungstownHemoglobin Test strip Ql (U) Ordered By: Ty Winkler on 70-71-1583Szwvsgaegd Ql (U)NegativeNegativeSelect Medical Specialty Hospital - YoungstownHemoglobin [Mass/volume] in BloodOrdered By: Ty Winkler on 34-79-0413Hsrcjazezy (Bld) [Mass/Vol]18.9 g/kWRpnu19.0-17.0[facility] YoungstownKetones Test strip Ql (U)Ordered By: Ty Winkler on 01-29-2024 Ketones Ql (U)NegativeNegWVUMedicine Harrison Community HospitalLeukocyte esterase [Presence] in Urine by Test stripOrdered By: Ty Winkler on 01-29-2024 Leukocyte esterase Test strip Ql (U)NegativeNegWVUMedicine Harrison Community HospitalLeukocytes [#/volume] corrected for nucleated erythrocytes in Blood by Automated counOrdered By: Ty Winkler on 16-17-7884DTU corrected for nucl RBC Auto (Bld) [#/Vol]6.8 10*3/uL4.1-10.5FOhioHealth Dublin Methodist HospitalLipase [Enzymatic activity/volume] in Serum or PlasmaOrdered By: Ty Winkler on 28-19-2613Dkyjhh [Catalytic activity/Vol]29.0 U/L11.0-82.0[facility] YoungstownLymphocytes Auto (Bld) [#/Vol]Ordered By: Ty Winkler on 01-29-2024 Lymphocytes (Bld) [#/Vol]N/AFOhioHealth Dublin Methodist HospitalLymphocytes/100 WBC Auto (Bld)Ordered By: Ty Winkler on 99-67-9265Xyebtrvfyzs/100 WBC (Bld)N/A [facility] YoungstownLymphocytes/100 WBC Manual cnt (Bld)Ordered By: Ty Winkler on 89-22-4091Iexnbvwjmnx/100 WBC (Bld)28 %18-42[facility] YoungstownMCH Auto (RBC) [Entitic mass]Ordered By: Ty Winkler on 01-29-2024 MCH (RBC) [Entitic mass]32.4 pg27.5-35.2FOhioHealth Dublin Methodist HospitalMCHC Auto (RBC) [Mass/Vol]Ordered By: Ty Winkler on 87-34-3693GBSX (RBC) [Mass/Vol] 35.0 g/dL32.5-35.6FOhioHealth Dublin Methodist HospitalMCV Auto (RBC) [Entitic vol] Ordered By: Ty Winkler on 08-43-0103AEE (RBC) [Entitic vol]92.7 fL83.5-101 [facility] YoungstownMonocyte distribution width [Entitic volume] in Blood by AutomatedOrdered By: Ty Winkler on 19-03-6822Tvhzavzm distribution width Auto (Bld) [Entitic vol]18.41 %0.00-20.00[facility] Monocytes Auto (Bld) [#/Vol]Ordered By: Ty Winkler on 95-66-9869Xrxhlagsd (Bld) [#/Vol]N/[facility] HospitalMonocytes/100 WBC Auto (Bld)Ordered By: Ty Winkler on 61-48-1223Vzulsxxha/100 WBC (Bld)N/[facility] HospitalMonocytes/100 WBC Manual cnt (Bld)Ordered By: Ty Winkler on 01-29-2024 Monocytes/100 WBC (Bld)4 %2-11[facility] YoungstownNeutrophils Auto (Bld) [#/Vol]Ordered By: Ty Winkler on 59-03-8887Gmefjdjsgee (Bld) [#/Vol]N/A [facility] YoungstownNeutrophils/100 WBC Auto (Bld)Ordered By: Ty Winkler on 81-77-3087Emrgfnbswjx/100 WBC (Bld)N/[facility] Nitrite Test strip Ql (U)Ordered By: Ty Winkler on 39-29-5408Wbsjxhk Ql (U) NegativeNegativeSelect Medical Specialty Hospital - YoungstownNo Panel InformationOrdered By: Ty Winkler on 48-30-0704Fnnkudiof GFR (CKD-EPI)> 60.0 mL/MinSelect Medical Specialty Hospital - YoungstownPharmacy Creatinine Clearance (Chem83.32[facility] YoungstownNucleated erythrocytes [Presence] in Blood by Automated countOrdered By: Ty Winkler on 93-29-5955Lziqqgfkd RBC Auto Ql (Bld)N/AFOhioHealth Dublin Methodist HospitalPlatelet adequacy [Presence] in Blood by Light microscopyOrdered By: Ty Winkler on 86-60-9351Xzqwzpycn LM Ql (Bld)NormalNormalSelect Medical Specialty Hospital - YoungstownPlatelet mean volume Auto (Bld) [Entitic vol]Ordered By: Ty Winkler on 38-48-9903Kytsxgjn mean volume (Bld) [Entitic vol]8.1 fL6.6-10.1FOhioHealth Dublin Methodist HospitalPlatelet morphology finding [Identifier] in BloodOrdered By: Ty Winkler on 39-01-7190Idetbxuf morphology finding Nom (Bld)NormalNormal [facility] YoungstownPlatelets Auto (Bld) [#/Vol]Ordered By: Ty Winkler on 34-10-8712Nqpvasrta (Bld) [#/Vol]245 10*3/cN796-696FfqymzbkvSelect Medical Specialty Hospital - YoungstownPotassium [Moles/volume] in Serum or PlasmaOrdered By: Ty Winkler on 20-59-7840Qnwmixrql [Moles/Vol]3.9 mmol/L3.5-5.1FOhioHealth Dublin Methodist HospitalProtein Test strip (U) [Mass/Vol]Ordered By: Ty Winkler on 01-29-2024 Protein (U) [Mass/Vol]NegativeNegativeSelect Medical Specialty Hospital - YoungstownProtein [Mass/volume] in Serum or PlasmaOrdered By: Ty Winkler on 85-50-7477Dftdorx [Mass/Vol]8.0 g/dL6.4-8.9[facility] YoungstownRB Auto (Bld) [#/Vol] Ordered By: Ty Winkler on 99-24-8368XAD (Bld) [#/Vol]5.83 10*6/uLHigh3.90-5.60 [facility] YoungstownRBC morphologyOrdered By: Ty Winkler on 90-36-8364KIG morphology finding Nom (Bld)NormalNormGerman Hospitalegmented neutrophils/100 WBC Manual cnt (Bld)Ordered By: Ty Winkler on 40-16-5661Mzeklcanj neutrophils/100 WBC (Bld)58 %50-70German Hospitalerum or plasma albumin/globulin mass ratioOrdered By: Ty Winkler on 29-06-9437Jocypey/Globulin [Mass ratio]1.6 {ratio}German Hospitalerum or plasma anion gap determinationOrdered By: Ty Winkler on 67-38-2286Blqqz gap [Moles/Vol]10.5 mmol/L6.0-15.0German Hospitalerum or plasma non-glucuronidated bilirubin measurement (mass/volume) Ordered By: Ty Winkler on 96-44-9147Pwvktqdtw.indirect [Mass/Vol]0.7 mg/dL German Hospitalodium [Moles/volume] in Serum or PlasmaOrdered By: Ty Winkler on 26-49-7237Ijbxrq [Moles/Vol]131 mmol/NBsj518-082IwcqhljefGerman Hospitalpecific gravity Test strip (U) [Rel density]Ordered By: Ty Winkler on 36-31-9479Sskwqynn gravity (U) [Rel density]1.0031.001-1.030 [facility] YoungstownUrea nitrogen [Mass/volume] in Serum or Plasma Ordered By: Ty Winkler on 78-28-3597Azou nitrogen [Mass/Vol]6 mg/dLLow7-25 [facility] YoungstownUrine appearanceOrdered By: Ty Winkler on 35-82-8897Ijwpkbabvg (U)ClearClearFOhioHealth Dublin Methodist HospitalUrobilinogen Test strip (U) [Mass/Vol]Ordered By: Ty Winkler on 08-24-6738Lnsneeomthzs (U) [Mass/Vol]Normal mg/dLNormalSelect Medical Specialty Hospital - YoungstownVariant lymphocytes/100 WBC Manual cnt (Bld)Ordered By: Ty Winkler on 16-52-7038Zmzeedd lymphocytes/100 WBC (Bld)6 %0-12[facility] YoungstownWBC Auto (Bld) [#/Vol]Ordered By: Ty Winkler on 04-61-9290QAT (Bld) [#/Vol]6.8 10*3/uL4.1-10.5 [facility] YoungstownpH Test strip (U)Ordered By: Ty Winkler on 78-33-9054aN (U)7.5 [pH]5.0-9.0[facility] YoungstownCBC AUTO DIFFon 90-31-4393EXUH #0.1 103/ulNormal0.0-0.1The Caren HospitalComment on above: Performed By: #### CBC #### [facility] [address] [place] [address] Dr. Pravin TravisBasophils/100 WBC (Bld)0.7 %Normal0.2-2.0[facility] on above:Performed By: #### CBC #### [facility] [address] [place] [address] Dr. Pravin Lopez #0.6 103/ulNormal0.0-0.7The [facility] HospitalComment on above: Performed By: #### CBC #### [facility] [address] [place] [address] Dr. Pravin Orourkeosinophils/100 WBC (Bld)7.4 %Critically high0.9-7.0The [facility] HospitalComment on above:Performed By: #### CBC #### [facility] [address] [place] [address] Dr. Pravin Orourkerythrocyte distribution width (RBC) [Ratio]12.3 %Iedgas71.0-15.0 The [facility] HospitalComment on above:Performed By: #### CBC #### [facility] [address] [place] [address] Dr. Pravin TravisHematocrit (Bld) [Volume fraction]47.2 %Odrlhq37.0-54.0The [facility] HospitalComment on above:Performed By: #### CBC #### [facility] [address] [place] [address] Dr. Pravin TravisHemoglobin (Bld) [Mass/Vol]16.2 g/pBTjzryo90.0-18.0The [facility] HospitalComment on above:Performed By: #### CBC #### [facility] [address] [place] [address] Dr. Pravin Robles #0.03 10e3/ulNormal0.00-0.03The [facility] HospitalComment on above:Performed By: #### CBC #### [facility] [address] [place] [address] Dr. Pravin Robles %0.4 %Normal0.0-0.5The [facility] HospitalComment on above: Performed By: #### CBC #### [facility] [address] [place] [address] Dr. Pravin Prater #2.1 103/ulNormal1.2-3.8The [facility] HospitalComment on above:Performed By: #### CBC #### [facility] [address] [place] [address] Dr. Pravin Carloshocytes/100 WBC (Bld)24.3 %Fangtf22.5-60.0The [facility] HospitalComment on above:Performed By: #### CBC #### [facility] [address] [place] [address] Dr. Pravin Brito DIFF REQNONormalThe [facility] North HospitalComment on above: Performed By: #### CBC #### [facility] [address] [place] [address] Dr. Pravin Ha (RBC) [Entitic mass]32.6 eeSbzvuf40.9-34.0The [facility] HospitalComment on above:Performed By: #### CBC #### [facility] [address] [place] [address] Dr. Pravin Gross (RBC) [Mass/Vol]34.3 g/qRUdjehz16.9-35.2The [facility] HospitalComment on above:Performed By: #### CBC #### [facility] [address] [place] [address] Dr. Pravin Gross (RBC) [Entitic vol]95.0 fLCritically high80.0-94.0The [facility] HospitalComment on above:Performed By: #### CBC #### [facility] [address] [place] [address] Dr. Pravin Brady #0.8 103/ulNormal0.3-0.8The [facility] HospitalComment on above:Performed By: #### CBC #### [facility] [address] [place] [address] Dr. Yilan ChangMonocytes/100 WBC (Bld)9.7 %Normal1.7-12.0The [facility] Comment on above:Performed By: #### CBC #### [facility] [address] [place] [address] Dr. Pravin AponteUT #4.9 103/ulNormal1.4-6.5The [facility] HospitalComment on above:Performed By: #### CBC #### [facility] [address] [place] [address] Dr. Pravin Aponteutrophils/100 WBC (Bld)57.5 %Fwsiei90.0-75.0The [facility] HospitalComment on above:Performed By: #### CBC #### [facility] [address] [place] [address] Dr. Pravin TravisPlatelet mean volume (Bld) [Entitic vol]10.4 fLNormal9.5-13.5The [facility] HospitalComment on above:Performed By: #### CBC #### [facility] [address] [place] [address] Dr. Pravin TravisPLT215 103/vvUhkpnt300-810Apt [facility] HospitalComment on above: Performed By: #### CBC #### [facility] [address] [place] [address] Dr. Pravin TravisRBC4.97 106/ulNormal4.70-6.10The [facility] HospitalComment on above:Performed By: #### CBC #### [facility] [address] [place] [address] Dr. Pravin TravisWBC8.6 103/ulNormal4.0-11.0The [facility] HospitalComment on above: Performed By: #### CBC #### [facility] [address] [place] [address] Dr. Pravin TravisCT ABD/PELV W CONon 19-10-7565EF ABD/PELV W CONEXAMINATION: CT ABD/PELV W CON [...] Electronically authenticated by: ALANA MORROW Date: 2022-03-26 01:[address] [place] [address] URINE PROFILEon 59-79-5357Astptaafx Ql (U)NegativeNormal NEGATIVETwin City HospitalComment on above:Performed By: #### ERUR #### [facility] [address] [place] [address] Dr. Pravin Johnston (U)SL CLOUDYAbnormalCLEARThSelect Medical Specialty Hospital - CantonComment on above:Performed By: #### ERUR #### [facility] [address] [place] [address] Dr. Pravin Alejandre (U)LT. YELLOWNormalYELLOWTwin City HospitalComment on above:Performed By: #### ERUR #### [facility] [address] [place] [address] Dr. Pravin Mohamud micrscopic examination will be performed if indicated. NormalTwin City HospitalComment on above:Performed By: #### ERUR #### [facility] [address] [place] [address] Dr. Pravin TravisGlucose Ql (U)NegativeNormalNEGATIVETwin City HospitalComment on above:Performed By: #### ERUR #### [facility] [address] [place] [address] Dr. Pravin TravisHemoglobin Ql (U)NegativeNormalNEGATIVETwin City Hospital Comment on above:Performed By: #### ERUR #### [facility] [address] [address] [address] Pravin Ahn Ql (U)NegativeNormalNEGATIVEThe [facility] HospitalComment on above:Performed By: #### ERUR #### [facility] [address] [place] [address] Dr. Pravin TravisLEUKOCYTESNegativeNormalNEGATIVEThe [place] HospitalComment on above:Performed By: #### ERUR #### [facility] [address] [place] [address] Dr. Pravin Sytrmadelin Ql (U)NegativeNormalNEGATIVETwin City HospitalComment on above:Performed By: #### ERUR #### [facility] [address] [place] [address] Dr. Pravin Berg (U)7.5 [pH]Normal5-9The [facility] HospitalComment on above: Performed By: #### ERUR #### [facility] [address] [place] [address] Dr. Pravin TravisSPEC GRAVITY1.823Jsbygm7.005-<=1.025The [facility] North HospitalComment on above:Performed By: #### ERUR #### [facility] [address] [place] [address] Dr. Pravin Gregory PROTEINNegativeNormalNEGATIVE/ TRACEThe [facility] Comment on above:Performed By: #### ERUR #### [facility] [address] [place] [address] Dr. Pravin Muniz MICRO INDNOT INDICATEDNormalThSelect Medical Specialty Hospital - CantonComment on above:Performed By: #### ERUR #### [facility] [address] [place] [address] Dr. Pravin Mchughgen Qn (U)0.2 {Katie'U}/dLNormal0.2 - 1.0The [facility] HospitalComment on above:Performed By: #### ERUR #### [facility] [address] [place] [address] Dr. Pravin Bowman 14(COMP METB)on 07-36-0714Bkplqoc [Mass/Vol]4.3 g/dLNormal 3.4-5.0The [facility] HospitalComment on above:Performed By: #### CMP #### [facility] [address] [place] [address] Dr. Pravin TravisAlbumin/Globulin [Mass ratio]1.3 {ratio}NormalThe [facility] North HospitalComment on above:Performed By: #### CMP #### [facility] [address] [place] [address] Dr. Pravin BartonP [Catalytic activity/Vol]92 U/BXqynzt27-923Mxu [facility] HospitalComment on above:Performed By: #### CMP #### [facility] [address] [place] [address] Dr. Pravin BartonT [Catalytic activity/Vol]31 U/XEpvqyo53-87Hua [facility] HospitalComment on above:Performed By: #### CMP #### [facility] [address] [place] [address] Dr. Pravin Beard gap [Moles/Vol]10.9 mmol/LNormalThe [facility] Comment on above:Performed By: #### CMP #### [facility] [address] [place] [address] Dr. Pravin TravisAST [Catalytic activity/Vol]31 U/HEuwipv74-98Ryw [facility] HospitalComment on above:Performed By: #### CMP #### [facility] [address] [place] [address] Dr. Pravin TravisBilirubin [Mass/Vol]0.5 mg/dLNormal0.2-1.0The [facility] Comment on above:Performed By: #### CMP #### [facility] [address] [place] [address] Dr. Pravin TravisCalcium [Mass/Vol]9.3 mg/dLNormal8.5-10.1The [facility] Comment on above:Performed By: #### CMP #### [facility] [address] [place] [address] Dr. Pravin TravisChloride [Moles/Vol]103 mmol/SDukmyn65-248LnbTwin City Hospital Comment on above:Performed By: #### CMP #### [facility] [address] [place] [address] Dr. Pravin TravisCO2 [Moles/Vol]29.8 mmol/ULqyrfh50.0-32.0[facility] Comment on above:Performed By: #### CMP #### [facility] [address] [address] [address] Pravin TravisCreatinine [Mass/Vol]1.22 mg/dLNormal0.70-1.30The [facility] HospitalComment on above:Performed By: #### CMP #### [facility] [address] [place] [address] Dr. Pravin OrourkeGFR-AF BURKINAN>60Normal>=60The [facility] HospitalComment on above:Performed By: #### CMP #### [facility] [address] [address] [address] Pravin OrourkeGFR-NON AF BURKINAN>60Normal>=60The [facility] HospitalComment on above:Performed By: #### CMP #### [facility] [address] [address] [address] Pravin TravisGlobulin (S) [Mass/Vol]3.4 g/dLNormalThe [facility] HospitalComment on above:Performed By: #### CMP #### [facility] [address] [place] [address] Dr. Pravin TravisGlucose [Mass/Vol]91 mg/rUPhmbmi98-710Nud [facility] Comment on above:Performed By: #### CMP #### [facility] [address] [address] [address] Pravin TravisPotassium [Moles/Vol]3.7 mmol/LNormal3.5-5.1The [facility] Comment on above:Performed By: #### CMP #### [facility] [address] [place] [address] Dr. Pravin TravisProtein [Mass/Vol]7.7 g/dLNormal6.4-8.2[facility] Comment on above:Performed By: #### CMP #### [facility] [address] [address] [address] Pravin Wheelerum [Moles/Vol]140 mmol/YJjgzhs912-712Yya [facility] Comment on above:Performed By: #### CMP #### [facility] [address] [address] [address] Pravin TravisUrea nitrogen [Mass/Vol]11.0 mg/dLNormal7.0-18.0Twin City HospitalComment on above:Performed By: #### CMP #### [facility] [address] [address] [address] Pravin Bobo nitrogen/Creatinine [Mass ratio]9.0 mg/mgNormalThe [facility] HospitalComment on above:Performed By: #### CMP #### [facility] [address] [address] [address] Pravin TravisCOMARKIE Quick Testingon 22-69-5885JnuqycZagsdefoUdnud [place] [employer] Other COVID Quick Testingon 59-06-6995ThcevhIaahrqyqYrthz [employer] Other Quick Fluon 94-11-3785XVLBB Ab CF (S) [Titer]Negative [facility] [employer] Other FLUBV Ab CF (S) [Titer]NegativeTri-State Memorial Hospital [employer] Other Vital Signs Date TimeVital SignValuePerforming BwlbctzcxRsdpptmy87-30-9436 16:30-0400 Diastolic blood kydyliwm507 mm[Hg]Cisco Furlong DO Work Phone: [facility]07-29-2025 16:30-0400 Heart rate76 /minDennis Furlong DO Work Phone: [facility]07-29-2025 16:30-0400 Respiratory rate16 /minDennis Furlong DO Work Phone: [facility]07-29-2025 16:30-0400 SaO2% (BldA) [Mass fraction]97 %Cisco Carcamolong DO Work Phone: [phone] [place], [place] 9568007-29-2025 16:30-0400 Systolic blood paafblpw705 mm[Hg]Cisco Carcamolong DO Work Phone: [phone] [place], [place] 6755907-29-2025 16:00-0400 Body vhfiuppvnem00.8 [degF]Cisco Carcamolong DO Work Phone: [phone] [place], [place] 6755907-29-2025 11:36-0400 Body ekasho987.72 cmDenchelsea Singhng DO Work Phone: [phone] [place], [place] 6755907-29-2025 11:36-0400 Body cupmxi07.9 kgDenchelsea Singhng DO Work Phone: [phone] [place], [place] 6755907-10-2025 12:24-0400 Body nsiics720.3 cmJessica Sankovic PA-C Work Phone: [phone] Lldnul11-93-3917 12:24-0400Body mass index (BMI) [Ratio]29.53 kg/x6Osppgdv Sankovic PA-C Work Phone: [phone] Muogeo87-85-7634 12:24-0400Body temperature 97 [degF]Lydia Sankovic PA-C Work Phone: [place] Vjlwcd21-68-0791 12:24-0400Body eyfhfl46.72 kgJessica Sankovic PA-C Work Phone: [phone] Vdsuse96-14-7559 12:24-0400Diastolic blood qbylnbcy19 mm[Hg]Lydia Sankovic PA-C Work Phone: [phone] Ndyayd58-00-0114 12:24-0400Heart rate76 /min Lydia Sankovic PA-C Work Phone: [phone] Nfhgiq50-04-6326 12:24-5628WbQ4% (BldA) [Mass fraction]97 %Lydia Noelle PA-C Work Phone: [place] Opayuf77-67-6381 12:24-0400Systolic blood wuwvpzhm778 mm[Hg]Lydia Mariebita PA-C Work Phone: [place] Rhwagv50-48-1410 13:45-0400Body nbucvg970.72 cmDennis Furlong DO Work Phone: [facility]06-30-2025 13:45-0400 Body mass index (BMI) [Ratio]28.8 kg/t7Azcqjj Furlong DO Work Phone: [facility]06-30-2025 13:45-0400 Body harbla32.18 kgDennis Furlong DO Work Phone: [facility]05-21-2025 12:53-0400 Diastolic blood siufkxsj302 mm[Hg]Vivian Brady [phone]-JfdffMagruder Memorial Hospital05-21-2025 12:53-0400Mean blood hgeryudc385 mm[Hg]Vivian Brady [phone]-BfhtqMagruder Memorial Hospital05-21-2025 12:53-0400Systolic blood mm[Hg]Vivian Brady [phone]-UeshwMagruder Memorial Hospital05-21-2025 12:43-0400Blood Pressure LocationMohamad Caitlyn [phone]-HpiiaMagruder Memorial Hospital05-21-2025 12:43-0400Diastolic blood cegteqrn765 mm[Hg]Vivian Brady [phone]-YhcqpMagruder Memorial Hospital05-21-2025 12:43-0400Heart rate80 /minVivian Brady 189-1809Phxeiz-UaxajMagruder Memorial Hospital05-21-2025 12:43-0400Systolic blood avzgzrux319 mm[Hg]Vivian Brady [phone]-QnzlgMagruder Memorial Hospital04-21-2025 13:07-0400Body zrjkji882.7 cmDennis Furlong DO Work Phone: [facility]04-21-2025 13:07-0400Body mass index (BMI) [Ratio]29.47 kg/s5Yocjgt Furlong DO Work Phone: [facility]04-21-2025 13:07-0400Body dwfztwanvwo23.4 [degF]Cisco Carcamolong DO Work Phone: [facility]04-21-2025 13:07-0400Body gjzqpo89.91 kgDenchelsea Carcamolong DO Work Phone: [facility]04-21-2025 13:07-0400Diastolic blood inpxwqrk21 mm[Hg]Cisco Carcamolong DO Work Phone: [facility] [employer] Rpxrnk39-76-4948 13:07-0400Heart rate 102 /Robis Carlos Albertolong DO Work Phone: [facility] [employer] Rzgvou53-98-6579 13:07-0400 Respiratory rate18 /minDdarrellis Carlos Albertolong DO Work Phone: [facility]04-21-2025 13:07-4856EdZ0% (BldA) [Mass fraction]97 %Cisco Carcamolong DO Work Phone: [facility] [employer] Dwtpiw04-39-3096 13:07-0400Systolic blood vvvsivqv147 mm[Hg]Cisco Carcamolong DO Work Phone: [facility]01-21-2025 14:23-0500Body mfgyad240.7 cmDenchelsea Carcamolong DO Work Phone: [facility]01-21-2025 14:23-0500Body mass index (BMI) [Ratio]28.89 kg/h8Ukygpv Furlong DO Work Phone: [facility]-21-2025 14:23-0500Body etnlikmadtd74.9 [degF]Cisco Carlos Albertolong DO Work Phone: [facility] [employer] Oqjpzy17-53-5818 14:23-0500Body yfdglt98.18 kgDennis Carlos Albertolong DO Work Phone: [facility] Cottkq51-88-7038 14:23-0500Diastolic blood xbnwvoka21 mm[Hg]Ciscochelsea Carcamolong DO Work Phone: [facility]01-21-2025 14:23-0500Heart rate 105 /minDdarrellis Carlos Albertolong DO Work Phone: [facility] [employer] Vuxuuv75-03-8262 14:23-0500 Respiratory rate20 /minDennis Carlos Albertolong DO Work Phone: [facility] [employer] Wpjxoh81-63-1681 14:23-8473LqK4% (BldA) [Mass fraction]99 %Ciscochelsea Carcamolong DO Work Phone: [facility]01-21-2025 14:23-0500Systolic blood phafaaxk833 mm[Hg]Cisco Carcamolong DO Work Phone: [facility] [employer] Agetvc29-65-0499 16:08-0400Body baywjo269.7 cmDennis Carlos Albertolong DO Work Phone: [facility] Ioolek48-52-5342 16:08-0400Body mass index (BMI) [Ratio]27.79 kg/o5Kdgfpv Furlong DO Work Phone: [facility] Dkxxmf76-85-6083 16:08-0400Body sjgpgtcrewu52.7 [degF]Cisco Carcamolong DO Work Phone: [facility] [employer] Oxdrtk10-02-8712 16:08-0400Body zukhbg51.92 kgDennis Carlos Albertolong DO Work Phone: [facility]07-25-2024 16:08-0400Diastolic blood wzqbkynz20 mm[Hg]Cisco Furlong DO Work Phone: [facility]07-25-2024 16:08-0400Heart rate 79 /minDennis Furlong DO Work Phone: [facility]07-25-2024 16:08-9611WeH3% (BldA) [Mass fraction]97 %Cisco Furlong DO Work Phone: [facility]07-25-2024 16:08-0400Systolic blood qyzdajon588 mm[Hg]Cisco Furlong DO Work Phone: [facility]07-13-2024 14:00-0400Diastolic blood joqfngnw33 mm[Hg]DO Cisco Furlong Work Phone: [facility]07-13-2024 14:00-0400 Heart rate79 /minDO Cisco Furlong Work Phone: [phone]07-13-2024 14:00-0400 Respiratory rate18 /minDO Cisco Furlong Work Phone: [phone]07-13-2024 14:00-0400 SaO2% (BldA) [Mass fraction]95 %DO Cisco Furlong Work Phone: [phone]07-13-2024 14:00-0400 Systolic blood iifywdbr822 mm[Hg]DO Cisco Furlong Work Phone: [phone]07-13-2024 11:20-0400 Body gjyoucaogrz02.2 [degF]DO Cisco Furlong Work Phone: [phone]07-13-2024 11:18-0400 Body qzaeox985.72 cmDO Cisco Furlong Work Phone: [phone]07-13-2024 11:18-0400 Body nzczwa83.65 kgDO Cisco Furlong Work Phone: [facility]06-13-2024 11:29-0400 Body yxzpnejqtan01.6 [degF]Didi Orzech [facility]06-13-2024 11:29-0400Diastolic blood zeuhftrb80 mm[Hg]Didi Orzech [facility]06-13-2024 11:29-0400Heart rate77 /minAurora Orzech [facility]06-13-2024 11:29-0400Respiratory rate16 /minAurora Orzech [facility]06-13-2024 11:29-0400Systolic blood mm[Hg]Didi Orzech [facility]06-10-2024 01:11-0400Heart dyyg607 /minDO Cisco Furlong Work Phone: [facility]06-10-2024 00:30-0400 Respiratory rate22 /minDO Cisco Furlong Work Phone: [facility]06-10-2024 00:30-0400 SaO2% (BldA) [Mass fraction]97 %DO Cisco Furlong Work Phone: [facility]06-09-2024 23:38-0400 Diastolic blood fdhlwoij29 mm[Hg]DO Cisco Furlong Work Phone: [facility]06-09-2024 23:38-0400 Systolic blood eeuillsi106 mm[Hg]DO Cisco Furlong Work Phone: [facility]06-09-2024 22:45-0400 Body gixaca947.72 cmDO Cisco Bonilla Work Phone: [facility]06-09-2024 22:45-0400 Body slbata77.2 kgDO Cisco Bonilla Work Phone: [facility]06-09-2024 22:44-0400 Body .3 [degF]DO Cisco Bonilla Work Phone: [facility]04-19-2024 08:47-0400 Body klipkm948.7 cmMichelle Francis APRN-OFFICE AUTOMATION CLERK Work Phone: [facility]04-19-2024 08:47-0400Body mass index (BMI) [Ratio]30.08 kg/c3WdmqbvMichelle Francis HEAD FILTER PRESS TENDER-OFFICE AUTOMATION CLERK Work Phone: [facility] [employer] Tzuhoi29-55-7956 08:47-0400Body .29 [degF]Michelle Francis HEAD FILTER PRESS TENDER-OFFICE AUTOMATION CLERK Work Phone: [facility] [employer] Eilxzl67-30-2930 08:47-0400Body .72 kgBrnisha Francis HEAD FILTER PRESS TENDER-OFFICE AUTOMATION CLERK Work Phone: [facility]04-19-2024 08:47-0400Diastolic blood vjihgfsc19 mm[Hg]Michelle Francis HEAD FILTER PRESS TENDER-OFFICE AUTOMATION CLERK Work Phone: [facility]04-19-2024 08:47-0400Heart rate 82 /minBrnisha Francis HEAD FILTER PRESS TENDER-OFFICE AUTOMATION CLERK Work Phone: [facility] [employer] Fzypku78-15-9406 08:47-0400 Respiratory rate18 /minBrnisha Francis HEAD FILTER PRESS TENDER-OFFICE AUTOMATION CLERK Work Phone: [facility]04-19-2024 08:47-0674YcX3% (BldA) [Mass fraction]96 %Michelle Francis HEAD FILTER PRESS TENDER-OFFICE AUTOMATION CLERK Work Phone: [facility]04-19-2024 08:47-0400Systolic blood bigkobbw369 mm[Hg]Michelle Francis HEAD FILTER PRESS TENDER-OFFICE AUTOMATION CLERK Work Phone: [facility]01-11-2022 13:30-0500Body iwqioc303.72 Twyla Andre Other [employer] Other 978543-55-9044 13:30-0500Body mass index (BMI) [Ratio] 31.93 kg/p3GtivuwTawnya Andre Other [employer] Other 01-11-2022 13:30-0500Body jtovadfcixh63.4 [degF]Tawnya Andre Other [employer] Other 01-11-2022 13:30-0500Body bgggos80.26 kgTawnya Andre Other [employer] Other 01-11-2022 13:30-0500Respiratory rate18 /minTawnya Andre Other [employer] Other 01-11-2022 13:30-8996GaQ9% (BldA) [Mass fraction]98 % Tawnya Andre Other [employer] Other 12-21-2021 12:00-0500Body fowdei901.72 Gracy King Other [employer] Other 12-21-2021 12:00-0500Body mass index (BMI) [Ratio] 31.93 kg/r0EtpfxsgcvMary King Other [employer] Other 12-21-2021 12:00-0500Body uswfgbfwadf47.9 [degF] Mary King Other [employer] Other 12-21-2021 12:00-0500Body wxdiib95.26 kgMary King Other [employer] [place] [employer] Other 12-21-2021 12:00-0500Respiratory rate18 /minShuang King Other [employer] Other 12-21-2021 12:00-5406WvA8% (BldA) [Mass fraction]96 % Mary King Other [employer] [place] [employer] Other Encounters Encounter DateEncounter TypeCare ProviderFacilityStart: 06-19-2025 End: 39-23-2657svypdqxfmgZnrfitf A. MouchliFacility:[facility] DHStart: 06-04-2025 End: 33-25-6923Mxktnkc encounter procedurePasherrie JARAMILLO [facility] Start: 06-04-2025 End: 92-85-4435ugtcrcdnkvTmtnlfp R WATERSFacility:EU TamerauskyStart: 05-27-2025 End: 60-08-3334iwjyowqikiVnltwtk A. MouchaguilarFacility:[facility] DHStart: 05-27-2025 End: 92-27-6964Mrqxpqp encounter procedureVivian Brady [phone]-JfaieAkron [facility] Start: 05-24-2025 End: 62-78-4005becuipgzgwRftfrtk R WATERSFacility:EU JodyevueStart: 05-24-2025 End: 29-36-4868Yyklwir encounter procedurePasherrie JARAMILLO [facility] start: 05-20-2025 End: 78-72-7264Stsnlmopd department patient visitARLENECHELSAE Thomason CHADProMedica Santa [facility] Medical Centertart: 05-16-2025 End: 44-59-0832uafdziaoysUifzdb X OrzechFacility:[facility] BridgeueStart: 05-16-2025 End: 74-35-8848Mtsnmdx encounter procedureAurora X Orzech [facility] start: 05-15-2025 End: 55-57-0232psyucwqiyyKrqlkdc A. MouchliFacility:[facility] Hospitaltart: 05-15-2025 End: 48-50-7686Inwcdjo encounter procedureMokris Brady [phone]-LbkffAkron Children'S Hospital [facility] Start: 05-13-2025 End: 81-57-6541DcyczuCsjpev Paddy Carcamokiley DO Work Phone: [facility] Family MedicineComment on above:Anal fissure (Primary Dx)Start: 04-23-2025 End: 95-11-9968sswecjonpxUwxwwhv A. MouchliFacility:[facility] Hospitaltart: 04-23-2025 End: 27-92-5454Npmblen encounter procedureMohamad A. Mouchli [phone]-ZzaadAkron [facility] Hospital [facility] Start: 04-08-2025 End: 25-06-9282ofgyaqbpozYgcfgj [facility] Somersetng DO Work Phone: [facility] Work Phone: Start: 04-08-2025 End: 35-21-1306Tykjpbe encounter procedureEhsan Avina DO-[facility] Work Phone: Start: 04-03-2025 End: 17-17-4415Yxvukhkrs to same day surgery [place]daleLydia Drake PA-C Work Phone: colorectal SurgeryComment on above:Pelvic Floor ConferenceStart: 04-03-2025 End: 35-54-8675hxxhibzcarJbtmwmi Sankovic PA-Remberto Work Phone: colorectal SurgeryStart: 04-03-2025 End: 90-72-7413R-mail encounter from caregiverLydia Drake PA-C Work Phone: colorectal SurgeryStart: 04-03-2025 End: 68-82-2862Bhawqb-up encounterLydia Drake PA-C Work Phone: colorectal SurgeryComment on above:Follow up from virtual visitStart: 04-02-2025 End: 60-09-3272Qdvtremdm to same day surgery martinsdaleLydia Drake PA-C Work Phone: colorectal SurgeryComment on above:Constipation, unspecified constipation type (Primary Dx); Rectal spasm; Pelvic floor dysfunction; Anxiety; Distressed about housing issues; Orthostatic dizzinessStart: 04-02-2025 End: 38-91-3916Fizmurxieepy consultation with Bessie Drake PA-C Work Phone: colorectal SurgeryStart: 04-02-2025 End: 11-85-1675zicrixmhaqAKHPYVR SANKOVLIVFacility:[facility] Start: 03-22-2025 End: 60-24-3884PgvppoWhcjyh G Furclyde DO Work Phone: [facility] MedicineComment on above:AnxietyStart: 03-19-2025 End: 75-95-8733Wozrxxmcp to same day surgery martinsdaleEhsan Avina [facility]ERS[facility] CampusStart: 03-19-2025 End: 91-11-9242rreapuxahpPlzmfd Furlong DO Work Phone: [facility] Work Phone: Start: 03-18-2025 End: 36-54-0197Bgqgids encounter procedureJustin Jia Kailyn MCLAUGHLINXS-Qeq-Knysccem Testing Work Phone: Start: 03-18-2025 End: 61-88-2169tbnrrbzjgaBrisqo Furlong DO Work Phone: [facility] Work Phone: Start: 77-34-0137Jlguataks for preprocedural laboratory examinationJustin Jia IshPalm Springs General Hospital Physician GroupStart: 03-13-2025 End: 59-29-4998pjvsdfucbnEcxgdx Furlong DO Work Phone: [facility] Work Phone: Start: 03-13-2025 End: 37-87-1129Eqxpcua encounter procedureJustin Jia Avina DO-[facility] Work Phone: Start: 03-13-2025 End: 66-64-5461Eqifwzf encounter procedureJustin Jia Kailyn MCLAUGHLIN-XRay [facility] Start: 03-13-2025 End: 06-12-7068yjhkoiuygbJnioqt Furlong DO Work Phone: [facility] Work Phone: Start: 99-86-0603Ism-patient / Non-visitJustin Jia Avina DO-[facility] Work Phone: Start: 03-07-2025 End: 15-49-9181Ctvdofoir encounterLydia Drake PA-C Work Phone: colorectal SurgeryComment on above:Patient Update Start: 03-01-2025 End: 65-57-1506D-mail encounter from caregiverLydia Drake PA-C Work Phone: colorectal SurgeryStart: 03-01-2025 End: 21-98-9558Jhgzln-up encounterLydia Drake PA-C Work Phone: colorectal SurgeryComment on above:Follow up from visitStart: 02-28-2025 End: 52-82-0181Iugqbfo encounter procedureLydia Drake PA-C Work Phone: colorectal SurgeryComment on above:Pelvic floor dysfunction (Primary Dx); Rectal spasm; Constipation, unspecified constipation typeStart: 02-28-2025 End: 87-31-3654Cnwjczp evaluation of patient and reportSahil Bergeron RN Colorectal SurgeryComment on above:Pelvic floor dysfunctionStart: 02-28-2025 End: 06-92-5283tcvwcaxmpdLHBXUUM TETERFacility:[facility] Hospitaltart: 02-18-2025 End: 37-73-9763coacentlkhYpwrgz Furlong DO Work Phone: [facility] Work Phone: Start: 02-18-2025 End: 78-66-2062Inswpbx encounter procedureJuyumiko Avina DO-[facility] Work Phone: Start: 02-11-2025 End: 43-92-0096Yeysyezyq encounterAshley Hayward MD Work Phone: Colorectal SurgeryComment on above:Appointment (Left vm we received referral for botox injections)Start: 02-06-2025 End: 90-95-6555BxoteyFtmisk G Furlong DO Work Phone: [facility] - Family MedicineStart: 01-28-2025 End: 81-66-2350AjyccyAbslqj G Furlong DO Work Phone: [facility] - Family MedicineStart: 01-26-2025 End: 67-48-9349PzxasdUgsoiy G Furlong DO Work Phone: [facility] - Family MedicineStart: 01-24-2025 End: 35-36-4783qsqbvndkiuRlmzxmt A. MouchliFacility:Satish DHStart: 01-24-2025 End: 16-07-1821Ymnojlx encounter procedureVivian Brady [phone]-QkzziAkron [facility] Start: 01-16-2025 End: 59-90-2303Fnglhfwaop Violeta Brady MD Work Phone: Referring PhysicianComment on above:Constipation by outlet dysfunction (Primary Dx); Stress-related physiological response affecting medical conditionStart: 01-09-2025 End: 41-26-7221fjnqboualiXvbhpgk A. MouchliFacility:SandhuReinaldo DHStart: 01-09-2025 End: 24-81-0627Ndczzbo encounter procedureVivian Brady [phone]-BcjhqAkron Children'[facility] Start: 20-79-4353rotapmdvbgMjqywgr Mouchli Facility:SandhuKrisPedro DHStart: 12-31-2024 End: 01-24-9533Zrnmmqovn encounterLinda Marc CMAProMedica Physicians Internal Medicine - Family MedicineStart: 12-26-2024 End: 57-37-6056Cxuzoo OnlyDennis G Furlong DO Work Phone: [facility] Internal Medicine - Family MedicineComment on above:Chronic idiopathic constipation (Primary Dx); Hepatitis C virus infection without hepatic coma, unspecified chronicityStart: 12-20-2024 End: 55-56-5937Tgfouc OnlyDennis G Furlong DO Work Phone: [facility] - Family MedicineStart: 12-17-2024 End: 87-17-4094Gaughn OnlyDennis G Furlong DO Work Phone: [facility] Internal Medicine - Family MedicineComment on above:Irritable bowel syndrome with both constipation and diarrhea (Primary Dx)Start: 12-14-2024 End: 46-38-7027Eapwir OnlyDennis G Furlong DO Work Phone: [facility] Medicine - Family MedicineComment on above:Anal fissure (Primary Dx)Start: 12-12-2024 End: 51-49-9294OnrqlvMcoepj G Furlong DO Work Phone: [facility] MedicineStart: 12-10-2024 End: 09-71-5953xodrzkulnoCGCPVL G [facility] Centertart: 53-82-3840Inkpsizqr for general adult medical examination without abnormal findingsARLENEKing's Daughters Medical Center [facility] HospitalStart: 12-10-2024 End: 28-35-7426Wmcozlb encounter statusCisco Bonilla DO Work Phone: [facility] SystemStart: 12-10-2024 End: 51-60-9504Pnnywawf preventive med est patient 40-64yrsDennis Paddy Bonilla DO Work Phone: [facility] MedicineComment on above:Well adult exam (Primary Dx); Anxiety; Overweight; Iron overload; Encounter for screening for malignant neoplasm of prostate; Ex-smoker; Hypogonadism in male; Severe episode of recurrent major depressive disorder, without psychotic features ([facility]); Irritable bowel syndrome with both constipation and diarrheaStart: 12-10-2024 End: 27-50-8017tjljkusbcyEQRTCKSt. [facility] Ambulatory PPGStart: 06-96-7033Nxzwbegvq for general adult medical examination without abnormal findingsMt. San [facility] Amb[facility] PPGStart: 11-02-2024 End: 63-47-5401Pcyuly OnlyCisco Bonilla DO Work Phone: [facility] MedicineStart: 10-15-2024 End: 34-48-2397Wmysld OnlyCisco Bonilla DO Work Phone: [facility] MedicineStart: 09-26-2024 End: 71-63-4463Yywlptbte encounterDigestive Healthcare Consultants Work Phone: [facility] Digestive HealthcareStart: 09-13-2024 End: 71-41-6502Mmlysb OnlyDenchelsea G Furlong DO Work Phone: [facility] - Family MedicineStart: 09-12-2024 End: 91-29-7866Tydhjl OnlyDenchelsea Singhng DO Work Phone: [facility] Medicine - Family MedicineComment on above:Irritable bowel syndrome with both constipation and diarrhea (Primary Dx)Start: 09-11-2024 End: 43-65-6211Ywcimh outpatient visit 25 minutesCisco Singhng DO Work Phone: [facility] Medicine - Family MedicineComment on above:Irritable bowel syndrome with both constipation and diarrhea (Primary Dx); Essential hypertension, benign; Anxiety; Encounter for screening for malignant neoplasm of prostateStart: 09-11-2024 End: 43-14-8551LkqbroKflfgt G Furlong DO Work Phone: [facility] - Family MedicineStart: 04-04-2024 End: 30-56-4971Qnpouygao encounterDenchelsea Singhng DO Work Phone: [facility] - Family MedicineStart: 04-03-2024 End: 84-93-5937Yxtmyez encounter procedureAurora X Orzech [facility] start: 03-16-2024 End: 27-66-5689Dynnhp OnlyCisco Singhng DO Work Phone: [facility] - Family MedicineStart: 03-15-2024 End: 79-80-5957Treivb outpatient visit 25 minutesDenchelsea Singhng DO Work Phone: [facility] Medicine - Family MedicineComment on above:Irritable bowel syndrome with both constipation and diarrhea (Primary Dx); Umbilical hernia without obstruction and without gangrene; Incisional hernia, without obstruction or gangrene; Anal fissureStart: 03-15-2024 End: 84-17-6729cxaxigbeuqWHWKJI G [facility] Ambulatory PPGStart: 03-14-2024 End: 41-65-1969Fbpeql Minerva Bonilla DO Work Phone: [facility] MedicineStart: 03-03-2024 End: 05-17-1908Twluwiici department patient visitDO Cisco Bonilla Work Phone: [facility] Work Phone: Start: 02-20-2024 End: 82-87-6273Uotgrd Minerva Bonilla DO Work Phone: [facility] MedicineStart: 02-13-2024 End: 46-90-1902Pqyfzafjn encounterTy Acharya DO Work Phone: [facility] MedicineStart: 02-05-2024 End: 80-53-2151Rrxpdf Minerva Bonilla DO Work Phone: [facility] MedicineComment on above:Change in bowel habits (Primary Dx); Polyp of colon, unspecified part of colon, unspecified typeStart: 02-02-2024 End: 60-74-0883Vjzbaaq encounter procedureAurora Mario Allen [facility] Start: 01-31-2024 End: 57-00-1889Cnbbidrmx encounterBarbara De La Torre CMAProMedica Physicians [facility] MedicineStart: 01-29-2024 End: 45-05-6770Qmtgdwhvc department patient visitDO Cisco Bonilla Work Phone: [facility] Work Phone: Start: 12-09-2023 End: 79-54-6217Tinttc outpatient visit 15 minutesMichelle Francis APRN-OFFICE AUTOMATION CLERK Work Phone: [facility] Medicine - Family MedicineComment on above:Irritable bowel syndrome with constipation (Primary Dx); Gastroesophageal reflux disease, unspecified whether esophagitis present; 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 ([facility])Start: 03-26-2022 End: 91-73-6876jdxzppuftjNC CISCO SINGHNGFacility:Q9Ohdhg: 09-01-2021 End: 70-57-2639okttjbjdeuPtrhjo Taylor Other noEncision [place] Other Start: 40-34-5949Upsmou outpatient visit 15 minutes Tawnya [facility]G [facility] ClydeStart: 08-11-2021 End: 70-27-4115rfugaobmgfHzkfzfhkw Breault Other [place] Other Start: 70-23-3455Gfboer outpatient visit 15 minutes Mary KingFPG Urgent Care ClydeStart: 08-30-2016 End: 25-03-3575GadtgwaybpCQMMIHQ OSINOWOFacility:[facility] Procedures DateProcedureProcedure DetailPerforming ClinicianStart: 01-65-8298Lbhxdrwcfux Ethan JARAMILLO Start: 53-38-0454YcamgrmkzmmcbcenxnfghwqewiUsfyosq CLINT Start: 34-02-4470Ykib reduction of fracture with internal fixationDennis Furlong DO Work Phone: Start: 89-85-1318Y-ray of right footDennis Furlong DO Work Phone: Start: 61-31-8501N-ray of right footDennis Furlong DO Work Phone: Start: 26-81-1655RFJVS [facility] [place] [facility] Violette Maurer APRN.OFFICE AUTOMATION CLERK Work Phone: Start: 75-33-9530Ywqax depression screening assessment Cisco Carlos Albertolong DO Work Phone: Start: 56-50-9682Ogtjm 1996 panel - Serum or Plasma Sahil Bergeron RNStart: 68-01-1205Krimdk-up visitFollow-upDJOEY SINGHNGStart: 03-04-7230Tgpeu depression screening assessmentDennis Furlong DO Work Phone: Start: 16-00-7014Merklcqgex radiography of abdomenDO CiscoPHEMI Health Systemslong Work Phone: Start: 53-17-2255LdejtyxekxbYkjvrp Carlos Albertolong DO Work Phone: Start: 19-48-9622LM of abdomen and pelvis without contrastDO Cisco [employer] Work Phone: Start: 06-37-9382Kkilc depression screening assessment Michelle Francis HEAD FILTER PRESS TENDER-OFFICE AUTOMATION CLERK Work Phone: AppendectomyAurora Orzech ColonoscopyAurora Orzech Plan of Treatment DateCare ActivityDetailAuthorStart: 19-25-1529Kfkrichsq for malignant neoplasm of colonColonoscopySt. Francis Hospital SystemStart: 41-88-0333Xdstj panelLipid ScreeningProtestant Hospitaltart: 08-76-3008Lutrzgmy specific antigen measurement Prostate Cancer Screening DiscussionProtestant Hospitaltart: 62-16-9219Vgarnrbf ScreeningDiabetes ScreeningProtestant Hospitaltart: 39-58-6651Gaujvidnxqwsge of varicella zoster vaccineZoster (Shingles) Vaccine (1 of 2)[facility] SystemComment on above:Postponed from 2018 (Patient Refused)Start: 03-81-3805Hrimw BMI ScreeningAdult BMI ScreeningSt. Francis Hospital SystemStart: 53-59-6411SWNRJ-19 Vaccine ( season)COVID-19 Vaccine ( season)[facility] SystemComment on above:Postponed from 04/22/2024 (Patient Refused)Start: 45-32-4796Lwvnzycbsr ScreeningDepression Screening St[facility] SystemStart: 93-41-9024Uiodccv ScreeningTobacco Screening [facility] SystemStart: 21-18-4631Djybp BMI ScreeningAdult BMI Screening [facility] SystemStart: 29-22-1432Xrkjmbl ScreeningTobacco Screening [facility] SystemStart: 23-31-7445QUAMP-19 Vaccine ( season) COVID-19 Vaccine ()[facility] SystemStart: 04-22-2025 Influenza vaccinationProMedica Health SystemStart: 04-02-2025 End: 43-22-7397Kqxabbrgo to same day surgery tzfnqw8504/02/2025 11:30 AM EDT [facility] Colorectal Surgery [address] [id number] Lydia Drake PA-C [address] [place] [address] f/uColorectal SurgeryComment on above:f/u Start: 03-28-2025 End: 34-43-9471Whokwpu encounter jdpkcrqye12/07/2025 1:30 PM EDT OT/PT/Speech Visit [facility] Therapy [address] [id number] Belkys Smith, PT, DPT tightness in my rectum, anus i cant push out poopPromedica Defiance [facility] Hospital Physical TherapyComment on above:tightness in my rectum, anus i cant push out poopStart: 65-53-9186AgepoqpmhGerman Hospitaltart: 18-09-5831W-ray of right footXR foot RT 2VGerman Hospitaltart: 70-45-6420UU Foot - right 2 ViewsGerman Hospitaltart: 98-36-3541EsthshsroGerman Hospitaltart: 03-15-2025 End: 31-17-9728Tbnoflsdm to same day surgery fjgsmw8003/15/2025 4:30 PM EDT [facility] Colorectal Surgery [address] [address] George Navarrete DO [address] [phone] BOTOXColorectal SurgeryComment on above:BOTOXStart: 05-28-4216Rzqce BMI ScreeningAdult BMI ScreeningProSelect [facility] SystemStart: 97-36-9299Nlsgnpkptk ScreeningDepression ScreeningProSelect [facility] SystemStart: 20-58-1623Daaitnb ScreeningTobacco ScreeningProSelect [facility] SystemStart: 86-00-8916F-ray of right footXR foot RT min 3V*[facility] Start: 27-35-6654IO Foot - right GE 3 ViewsSelect [facility]ty [facility] Start: 02-21-2025 End: 27-11-4074Svflavb encounter azpgirygy49/03/2025 10:30 AM EDT Office Visit General Surgery [address] [address] Jey Kapadia MD [address] [place] [address] Consult Botox InjectionGeneral SurgeryComment on above:Consult Botox InjectionStart: 81-56-3421Dkkch BMI ScreeningAdult BMI ScreeningSt. Francis Hospital SystemStart: 79-08-6897Bfisaguvu for malignant neoplasm of colonCleveland Clinic Children'S [facility] Start: 61-45-5037Nckolvl ScreeningTobacco ScreeningSt. Francis Hospital SystemStart: 70-42-8806Ntlsnpe ScreeningTobacco ScreeningSt. Francis Hospital SystemStart: 12-10-2024 End: 82-72-9279BG Chest for screening WO contrastCT low dose lung screening (Annual) Imaging Routine Ex-smoker Expected: 12/10/2024, Expires: 12/10/2025 [facility] SystemComment on above:Expected: 12/10/2024, Expires: 12/10/2025Start: 12-10-2024 End: 02-03-8466Dlhdpxy encounter rqtcudrfb84/21/2025 1:00 PM EDT Office Visit [facility] [address] [place] [address] Cisco Bonilla, DO [address], [facility] [place] [address] [facility] - Family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 premium service representative; all questions welcomed and answered. Patient/authorized premium service representative agreed to proceed documented in this encounterCleveland Clinic [facility]06-30-2025 Evaluation note* Diagnosis Onset Date Resolution Status Admit Date Fracture of fifth metatarsal bone of rig ht foot acuteJune 2024 1:30pmFracture of fifth metatarsal bone of right footacute March 13, 2025 3:11pm [facility] Work Phone: [phone] [phone] Evaluation note* Diagnosis Onset Date Resolution Status Admit Date Fracture of fifth metatarsal bone of rig ht foot acuteJune 2024 1:30pmFracture of fifth metatarsal bone of right footacute March 13, 2025 3:11pmFracture of fifth metatarsal bone of right footacuteAugust 2024 9:12amOther specified postprocedural statesnoneactiveAugust 2024 9:12am [facility] Work Phone: 1(701) 742-244206-23-2025 Telephone encounter Note* Telephone Encounter - Chelle Christianson - 02/11/2025 9:38 AM EDT Recevied referral from [facility] fot pt referral for botox injections [facility]06-23-2025 Miscellaneous Notes* Telephone Encounter - Chelle Christianson - 02/11/2025 9:38 AM EDT Recevied referral from [facility] fot pt referral for botox injections documented in this encounterCleveland Clinic [facility]05-12-2025 Miscellaneous Notes* Telephone Encounter - Linda Marc CMA - 12/31/2024 9:34 AM EDT I called and left message for pt to call back. Regarding his referral to Gastroenterology. George Alcaraz is retired. * Telephone Encounter - Barbara De La Torre CMA - 12/31/2024 9:34 AM EDT Can we send referral to Dr. Moreno in [place] documented in this encounterMemorial Health System Selby [...] we send referral to Dr. Moreno in [place] [facility]04-28-2025 Miscellaneous Notes* Telephone Encounter - Barbara De La Torre CMA - 12/17/2024 3:24 PM EDT Patient called and stated he missed his apt in [place] with jaylyn/ent so they will not see him anymore. Can you refer him to someone else. * Telephone Encounter - Cisco Bonilla DO - 12/17/2024 3:24 PM EDT Okay. I sent another referral this time to a furniture repair technician in [place] -Dr. Alcaraz. If he can not make [...] and stated he missed his apt in [place] with jaylyn/ent so they will not see him anymore. Can you refer him to someone else. [employer] [id number] Telephone encounter Note* Telephone Encounter - Cisco Bonilla DO - 12/17/2024 3:24 PM EDT Okay. I sent another referral this time to a furniture repair technician in [place] -Dr. Alcaraz. If he can not make [...] treatment which is usually routine to do. DIY04-21-2025 History of Present illness Narrative* Cisco Bonilla [...] reveal any inflammatory bowel disease. Thegastroenterologist in [place] did not want to see him. He [...] appear clear Nose: Nose normal. Mouth/Throat: Lips: [place]. Mouth: Mucous membranes are moist. Dentition: [...] irritable bowel syndrome. documented in this encounterMemorial [facility]03-14-2025 History of Present illness Narrative* Cisco Bonilla DO - 11/02/2024 1:58 PM EDT FORM FOR BLOOD TESTER FILLED OUT documented in this encounterMemorial Health [...] needs to follow up with explained to abilio office that he does not specialize in [...] to a specialist * Telephone Encounter - Bettygeorge Wild - 09/12/2024 2:21 PM EST Can we get this as an urgent referral * Telephone Encounter - Cisco Bonilla DO - 09/12/2024 2:21 PM EST Send a referral to GI specialist at [facility] in [place] documented in this encounterMemorial [facility]01-22-2025 Telephone encounter Note* Telephone Encounter - Betty Torri - 09/12/2024 2:21 PM EST tty[facility] office [...] Telephone encounter Note* Telephone Encounter - Betty Torri - 09/12/2024 2:21 PM EST Can we get this as an urgent referral [facility]01-22-2025 Telephone encounter Note* Telephone Encounter - Cisco Bonilla DO - 09/12/2024 2:21 PM EST Send a referral to GI specialist at [facility]01-22-2025 Miscellaneous Notes* Telephone Encounter - Bettygeorge Wild - 09/12/2024 1:47 PM EST Patient called, metamucil is not covered by insurance but they will cover benifiber 240g [facility] [place] documented in this encounterMemorial Health System [facility]01-22-2025 Telephone encounter Note* Telephone Encounter - Betty Wild - 09/12/2024 1:47 PM EST Patient called, metamucil is not covered by insurance but they will cover benifiber 240g [facility] [place] [facility]01-21-2025 History of Present illness Narrative* Cisco Bonilla [...] have an appointment coming up with a furniture repair technician in September. He had to cancel his last appointment because he was having diarrhea and was afraid to leave the house because he might have an accident. The ER did give him Bentyl which did help. He did not think that less than helped at all. He stopped the FiberCon because it was not helping. He would rather have Metamucil. He called the furniture repair technician office and they suggested a cleaned out. [...] Exam Vitals reviewed. Exam conducted with a wheel lacer and truer present (Leilani Han MS 3). Constitutional: General: [...] EDT Mailbox full * Telephone Encounter - Bettygeorge Wild - 04/04/2024 10:24 AM EDT Scheduled documented in this encounterMemorial Health System [facility]08-14-2024 Telephone encounter Note* Telephone Encounter - Betty Wild - 04/04/2024 10:24 AM EDT ----- Message from Dr. Cisco Bonilla DO sent at 03/15/2024 7:03 PM EDT ----- Regarding: GI/BP recheck Please set up [facility]08-14-2024 Telephone encounter Note* Telephone Encounter - Betty Wild - 04/04/2024 10:24 AM EDT Mailbox full [facility] [employer] Information [id number] Telephone encounter Note* Telephone Encounter - Betty Wild - 04/04/2024 10:24 AM EDT Scheduled [facility] [employer] [id number] History of Present illness Narrative* Cisco Bonilla, [...] was getting liquidy stools-6 and 7 on Trimble stool scale. He used fiber supplement in [...] mostly liquidy now. He has [facility] times. He was given something for [...] g in 8 oz of water daily [facility] [employer] [id number] Telephone encounter Note* Telephone Encounter - Barbara De La Torre CMA - 01/31/2024 3:09 PM EDT Left message via [facility] [employer] Information [id number] History of Present illness Narrative* Michelle Francis APRN-LIDA - 12/09/2023 9:00 AM EDT [address] [place] [address] Patient: Chai Arnold Date of : 1970 [...] softeners pencilthin like a 4. On the Trimble stool scale and he has tried Metamucil and MiraLax. He denies any hemorrhoids or blood in his stool. His last colonoscopy was 4 years ago that showed polyps and diverticulosis and he knows he is due for another colonoscopy next year. Patient has been struggling with weaning off his Xanax. 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 Past Medical History: Diagnosis Date Anxiety Depression Past Surgical History: Procedure Laterality Date APPENDECTOMY COLONOSCOPY N/A 10/17/2019 Performed by Ty Acharya DO at [facility] DECOMPRESSION FASCIOTOMY LEG 12/24/2015 Current Outpatient [...] whether esophagitis present 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 ([facility]) Other orders - omeprazole (PriLOSEC) [...] office. Resources such as [facility] in [place] were given. It was also recommended that he apply at [facility] for primary care services and psychiatric [...] Patient care instructions given in writting by [employer] [facility] At Home document. [employer] Other 12-21-2021 Evaluation note* Encounter Date Diagnosis [...] Patient care instructions given in writting by [employer] At Home document. [employer] Other Evaluation + Plan note Future Appointments Appointment Date:04/03/2024 01:00:00 PM Scheduled Provider:JOSEPH Allen APRN, [place] Location:[facility] Appointment Type:URO Office Visit [facility] Evaluation + Plan note Future Appointments Appointment Date:04/11/2025 10:45:00 AM Scheduled Provider:Vivian Brady MD Location[facility] Appointment Type:BAD Follow Up [facility] Evaluation + Plan note Future Appointments Appointment Date:05/16/2025 11:00:00 AM Scheduled Provider:JOSEPH Allen APRN, [place] Location:[facility] Appointment Type:URO Complex Office Visit [facility] Evaluation + Plan note Future Appointments Appointment Date:05/23/2025 01:30:00 PM Scheduled Provider: Location:[facility] Appointment Type:URO Nurse Visit Appointment Date:06/04/2025 02:00:00 PM Scheduled Provider:Ethan JARAMILLO MD Location:[facility] Appointment Type:URO Procedure 15 min [facility] evaluation + Plan note Future Appointments Appointment Date:05/27/2025 12:30:00 PM Scheduled Provider:Vivian Brady MD Location[facility] Appointment Type:BAD Follow Up Appointment Date:06/04/2025 02:00:00 PM Scheduled Provider:Ethan JARAMILLO MD Location:[facility] Appointment Type:URO Procedure 15 min [facility] evaluation + Plan note Future Appointments Appointment Date:06/04/2025 02:00:00 PM Scheduled Provider:Ethan JARAMILLO MD Location:[facility] Appointment Type:URO Procedure 15 min [facility] evaluation noteNo assessment information available [facility] Work Phone: Evaluation note* Diagnosis Irritable bowel syndrome with both constipation and diarrhea- Primary Essential hypertension, benign Anxiety Anxiety state, unspecified Encounter for screening for malignant neoplasm of prostate [facility] Diagnosis Irritable bowel syndrome with both constipation and diarrhea- Primary 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 Diagnosis Change in bowel habits- Primary Other symptoms involving digestive system Polyp of colon, unspecified part of colon, unspecified type [facility]* Diagnosis Irritable bowel syndrome with both constipation and diarrhea- Primary Umbilical hernia without obstruction and without gangrene Incisional hernia, without obstruction or gangrene Anal fissure [facility]* Diagnosis Well adult exam- Primary Routine general medical examination at a health care facility Anxiety Anxiety state, unspecified Overweight Iron overload Disorders of iron metabolism Encounter for screening for malignant neoplasm of prostate Ex-smoker Personal history of tobacco use, presenting hazards to health Hypogonadism in male Severe episode of recurrent major depressive disorder, without psychotic features ([facility]) Irritable bowel syndrome with both constipation and diarrhea [facility] Diagnosis Anal fissure- Primary [facility]* Diagnosis Irritable bowel syndrome with both constipation and diarrhea- Primary [facility] Diagnosis Chronic idiopathic constipation- Primary Unspecified constipation Hepatitis C virus infection without hepatic coma, unspecified chronicity [facility]* Diagnosis 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 Outlet dysfunction constipation Stress-related physiological response affecting medical condition Psychic factors associated with diseases classified elsewhere [facility] Diagnosis Onset Date Resolution Status Admit Date Fracture of fifth metatarsal bone of rig ht foot acuteJune 2024 1:30pm [facility] Work Phone: Evaluation note* Diagnosis Pelvic floor dysfunction Pelvic muscle wasting Pelvic floor dysfunction- Primary Pelvic muscle wasting Rectal spasm Anal spasm Constipation, unspecified constipation type documented in this [facility]* Diagnosis Pelvic floor dysfunction- Primary Pelvic muscle wasting Rectal spasm Anal spasm Constipation, unspecified constipation type documented in this encounter [facility]* Diagnosis Anxiety Anxiety state, unspecified [facility] Diagnosis Constipation, unspecified constipation type- Primary Rectal spasm Anal spasm Pelvic floor dysfunction Pelvic muscle wasting Anxiety Anxiety state, unspecified Distressed about housing issues Other specified housing or economic circumstances Orthostatic dizziness documented in this encounter [facility]* Diagnosis Rectal spasm- Primary Anal spasm Constipation, unspecified constipation type Pelvic floor dysfunction Pelvic muscle wasting Anxiety Anxiety state, unspecified Chronic abdominal pain Abdominal pain, unspecified site Chronic rectal pain Anal or rectal pain documented in this encounter [facility]* Diagnosis Anal fissure- Primary [facility] Narrative - Reported* Type Description Date Medical History insomnia Medical HistoryanxietyMedical HistoryHTNSurgical Historyappendix removedSurgical Historycompartment syndrome left [id number] Historysee surgical hx [employer] Other Hospital course Narrative No data available for this section [facility] Hospital Discharge instructions Additional Instructions Wear leg bag with [place] catheter Follow-up with urology Return if symptoms are worseProtest[facility] Work Phone: Hospital Discharge instructions No data available for this section [facility] Hospital Discharge instructions Additional Instructions [...] wearing your boot. You may take NSAIDs/Tylenol [id number] as indicated on the bottle. You should [...] be scheduled with Dr. Avina's office at [facility]. At your follow-up we will remove your splint and sutures. Please call to confirm your follow-up appointment. Dr. Ehsan Avina [facility] [address] [place] [address] [facility]wkpatgPro[facility] Work Phone: Instructions* Attachments The following attachments cannot be sent through Care Everywhere. * IBS Diet (Malay) documented in this encounterProMedica Health SystemInstructionsNot on [...] Health SystemInstructionsNot on file documented in this encounterProMediConcordia Healthcare Health SystemInstructionsNot on file documented in this encounterProMediConcordia Healthcare Health SystemInstructionsNot on file documented in this encounterProMediConcordia Healthcare Health SystemInstructionsNot on file documented in this encounterProMediConcordia Healthcare Health SystemInstructionsNot on file documented in this encounterProMediConcordia Healthcare Health SystemInstructionsNot on file documented in this encounterProMediConcordia Healthcare Health SystemInstructionsNot on file documented in this encounterProEpicForce Health SystemProgress note No data available for this section [facility] Reason for referral (narrative)* Medication Prior Authorization - Pending ReviewSpecialtyDiagnoses / ProceduresReferred By ContactReferred To Contact Cisco Bonilla, [place] [address] Phone: tel: fax: Referral IDStatusReasonStart DateExpiration DateVisits RequestedVisits [id number] [facility] SystemReason for referral (narrative)* Medication Prior Authorization - Pending ReviewSpecialtyDiagnoses / ProceduresReferred By ContactReferred To Contact Cisco Bonilla DO [address] [place] [address] Phone: tel: fax: Referral IDStatusReasonStart DateExpiration DateVisits RequestedVisits [id number] [facility] SystemReason for referral (narrative)* Medication Prior Authorization - Pending ReviewSpecialtyDiagnoses / ProceduresReferred By ContactReferred To Contact Cisco Bonilla DO [address] [place] [address] Phone: tel: fax: Referral IDStatusReasonStart DateExpiration DateVisits RequestedVisits [id number] [facility] SystemReason for referral (narrative)No reason for referral [...] Cisco Bonilla DO [address], [facility] [place] [address] Referral IDStatusReasonStart DateExpiration DateVisits RequestedVisits [id number] Review/[id number] / ProceduresReferred By ContactReferred To Contact Diagnoses Change in bowel habits Polyp of colon, unspecified part of colon, unspecified type Procedures Colonoscopy Cisco Bonilla, [address], [facility] [place] [address] Referral IDStatusReasonStart DateExpiration DateVisits RequestedVisits [id number] Review/ Additional Source Comments (unrecognized sect ion and content) No Status Records FoundNo Status Records FoundNo Status Records FoundNo Status Records FoundNo Status Records FoundNo Status Records FoundNo Status Records FoundNo Status Records FoundNo Status Records FoundNo Status Records Found INFORMATION SOURCE (unrecogn ized section and content) DATE CREATED AUTHOR 02/14/2018 [facility] DATE CREATED AUTHOR AUTHOR'S ORGANIZ ATION 03/29/2022 [facility] DATE CREATED AUTHOR AUTHOR'S ORGANIZ ATION 12/10/2024 [facility] DATE CREATED AUTHOR AUTHOR'S ORGANIZ ATION 12/11/2024 [facility] DATE CREATED AUTHOR AUTHOR'S ORGANIZ ATION 03/31/2025 [facility] DATE CREATED AUTHOR AUTHOR'S ORGANIZ ATION 04/03/2025 [facility] DATE CREATED AUTHOR AUTHOR'S ORGANIZ ATION 05/26/2025 [facility] DATE CREATED AUTHOR AUTHOR'S ORGANIZ ATION 06/11/2025 [facility] DATE CREATED AUTHOR AUTHOR'S ORGANIZ ATION 06/20/2025 [facility] REASON FOR VISIT (unrecogniz ed section and content) ReasonCommentsAbdominal PainReasonOnset DateCommentsMed Ocyozy1709/11/2024Reason CommentsChronic Bowel issuesReasonCommentsFollow-upReasonCommentsAnnual Exam ReasonOnset DateCommentsMed Huqcyj2512/12/2024ReasonCommentsMed Change Request ReasonOnset DateCommentsMed Zkgcch3412/31/2024ReasonOnset DateCommentsMed Refill 01/26/2025ReasonCommentsMed Change RequestReasonOnset DateCommentsMed Refill 02/06/2025ReasonCommentsAppointmentLeft vm we received referral for botox injectionsReasonCommentsManometrySpecialtyDiagnoses / ProceduresReferred By ContactReferred To [facility] Diagnoses Pelvic floor dysfunction Procedures ADULT [place] ANORECTAL MANOMETRY ANORECTAL MANOMETRY Violette Maurer, OFFICE AUTOMATION CLERK [address] [place] [place] [address] Phone: tel: fax: [facility] [address] [place] [address] Referral IDStatusReasonStart DateExpiration DateVisits RequestedVisits [id number] Auto-Generated Referral [id number] PatientPelvic floor dysfunctionSpecialty Diagnoses / ProceduresReferred By ContactReferred To [facility] Diagnoses Pelvic floor dysfunction Procedures ADULT [place] ANORECTAL MANOMETRY ANORECTAL MANOMETRY Violette Maurer, DAVID.OFFICE AUTOMATION CLERK [address] [place] [place] [address] Phone: tel: fax: [facility] [address] [place] [address] Referral IDStatusReasonStart DateExpiration DateVisits RequestedVisits [id number] Auto-Generated Referral [id number] UpdateReasonOnset DateCommentsMed Fzaiyb2503/22/2025ReasonCommentsEstablished PatientReasonCommentsPelvic Floor ConferenceReasonOnset DateCommentsMed Pvuigb8605/13/2025 Care Teams (unrecognized sec tion and content) Team Status: Active Member Role Status Dates Cisco Bonilla DO Primary Care Provider Active Team Status: Inactive Member Role Status Dates Cisco Bonilla DO Primary Care Provider Active Start: January 29, 2024 End: January 30, 2024Ty Winkler MDEmerwashington regional medical center ProviderActiveStart: January 29, 2024 End: January 30, 2024 Team Status: Inactive Member Role Status Dates Cisco Bonilla DO Primary Care Provider Active Start: March 03, 2024 End: March 03DAYANNA Mack-[facility] Cityergencthom ProviderActiveStart: March 03, 2024 End: March 03, 2024Team MemberRelationshipSpecialtyStart DateEnd Date Chad Cisco PaddyDO [address], [facility] [place] [address] [facility]12/19/19Team MemberRelationshipSpecialtyStart DateEnd Date Cisco Bonilla DO [address], [place] [address] [facility]12/19/19Team MemberRelationshipSpecialtyStart DateEnd Date Cisco Bonilla PaddyDO [address], [place] [address] PCP - GeneralFamily Medicine12/19/19Team MemberRelationshipSpecialtyStart DateEnd Date ChadCiscoDO [address], [place] [address] PCP - GeneralFamily Medicine12/19/19Team MemberRelationshipSpecialtyStart DateEnd Date Carlos AlbertoclydeArleneCisco PaddyDO [address], [place] [address] PCP - GeneralFamily Medicine12/19/19Team MemberRelationshipSpecialtyStart DateEnd Date Carlos AlbertoclydeArleneCisco PaddyDO [address], [place] [address] PCP - GeneralFamily Medicine12/19/19Team MemberRelationshipSpecialtyStart DateEnd Date Chad Cisco Thomason DO [address], [place] [address] PCP - GeneralFamily Medicine12/19/19am MemberRelationshipSpecialtyStart DateEnd Date Cisco Bonilla DO [address], [place] [address] PCP - GeneralFamily Medicine12/19/19Team MemberRelationshipSpecialtyStart DateEnd Date Cisco Bonilla DO [address] [place] [address] PCP - GeneralFamily Medicine12/19/19Team MemberRelationshipSpecialtyStart DateEnd Date Cisco Bonilla DO [address], [place] [address] PCP - GeneralFamily Medicine12/19/19am MemberRelationshipSpecialtyStart DateEnd Date Cisco Bonilla DO [address], [place] [address] PCP - GeneralFamily Medicine12/19/19am MemberRelationshipSpecialtyStart DateEnd Date Cisco Bonilla DO [address], [place] [address] PCP - GeneralFamily Medicine12/19/19Team MemberRelationshipSpecialtyStart DateEnd Date Cisco Bonilla DO [address], [place] [address] PCP - GeneralFamily Medicine12/19/19Team MemberRelationshipSpecialtyStart DateEnd Date Cisco Bonilla DO [address], [place] [address] PCP - GeneralFamily Medicine12/19/19Team MemberRelationshipSpecialtyStart DateEnd Date Cisco Bonilla DO [address], [place] [address] PCP - GeneralFamily Medicine12/19/19Team MemberRelationshipSpecialtyStart DateEnd Date Cisco Bonilla DO [address], [place] [address] PCP - GeneralFamily Medicine12/19/19Team MemberRelationshipSpecialtyStart DateEnd Date Cisco Bonilla DO [address], [place] [address] PCP - GeneralFamily Medicine12/19/19Team MemberRelationshipSpecialtyStart DateEnd Date Cisco Bonilla DO [address], [place] [address] PCP - GeneralFamily Medicine12/19/19Team MemberRelationshipSpecialtyStart DateEnd Date Tyson Tolliver MD PCP - GeneralFamily Medicine11/11/15 Vivian Brady MD [address] [address] Gastroenterology01/16/25Team MemberRelationshipSpecialtyStart DateEnd Date Gerardokiley Cisco Paddy DO [address], [place] [address] PCP - GeneralFamily Medicine12/19/19Team MemberRelationshipSpecialtyStart DateEnd Date Tyson Tolliver MD PCP - GeneralFamily Medicine11/11/15 Vivian Brady MD [address] [address] Gastroenterology01/16/25 Team Status: Inactive Member Role Status Dates Cisco Bonilla DO Primary Care Provider Active Start: February 18, 2025 End: February 18, 2025Juyumiko Avina DOAttending ProviderActiveStart: February 18, 2025 End: February 18, 2025Team MemberRelationshipSpecialtyStart DateEnd Date Tyson Tolliver MD PCP - GeneralFamily Medicine11/11/15 Vivian Brady MD [address] [address] Gastroenterology01/16/25Team MemberRelationshipSpecialtyStart DateEnd Date Tyson Tolliver MD PCP - GeneralFamily Medicine11/11/15 Vivian Brady MD [address] [address] Gastroenterology01/16/25Team MemberRelationshipSpecialtyStart DateEnd Date Tyson Tolliver MD PCP - GeneralFamily Medicine11/11/15 Vivian Brady MD [address] [address] Gastroenterology01/16/25Team MemberRelationshipSpecialtyStart DateEnd Date Tyson Tolliver MD PCP - GeneralFamily Medicine11/11/15 Vivian Brady MD [address] [place] [address] Gastroenterology01/16/25 Team Status: Active Member Role Status Dates Cisco Bonilla DO Primary Care Provider Active Start: March 13, 2025 Ehsan Avina , DOAttending ProviderActiveStart: March 13, 2025 Team Status: Inactive Member Role Status Dates Cisco Bonilla DO Primary Care Provider Active Start: March 13, 2025 End: March 13, 2025Justin Jia Avina , DOAttending ProviderActiveStart: March 13, 2025 End: March 13, 2025 Team Status: Inactive Member Role Status Dates Cisco Bonilla DO Primary Care Provider Active Start: March 18, 2025 End: March 18, 2025Justin Jia Avina , DOAttending ProviderActiveStart: March 18, 2025 End: March 18, 2025 Team Status: Active Member Role Status Dates Cisco Bonilla DO Primary Care Provider Active Start: March 12, 2025 Ehsanyumiko Avina DOAttending ProviderActiveStart: March 12, 2025 Ehsan Avina DOOther ProviderActiveStart: March 12, 2025 Team Status: Inactive Member Role Status Dates Cisco Bonilla DO Primary Care Provider Active Start: March 19, 2025 End: March 19, 2025Justin Jia Avina , DOAttending ProviderActiveStart: March 19, 2025 End: March 19, 2025Team MemberRelationshipSpecialtyStart DateEnd Date Cisco Bonilla DO [address] [facility] [place] [address] PCP - GeneralFawvly Medicine12/19/19Team MemberRelationshipSpecialtyStart DateEnd Date Tyson Tolliver MD PCP - GeneralFamily Medicine11/11/15 Vivian Brady MD [address] [address] Gastroenterology01/16/25Team MemberRelationshipSpecialtyStart DateEnd Date Tyson Tolliver MD PCP - GeneralFamily Medicine11/11/15 Vivian Brady MD [address] [address] Gastroenterology01/16/25Team MemberRelationshipSpecialtyStart DateEnd Date Tyson Tolliver MD PCP - GeneralFamily Medicine11/11/15 Vivian Brady MD [address] [address] Gastroenterology01/16/25 Team Status: Inactive Member Role Status Dates Cisco Bonilla DO Primary Care Provider Active Start: April 08, 2025 End: April 08, 2025Juyumiko Avina DOAttending ProviderActiveStart: April 08, 2025 End: April 08, 2025Team MemberRelationshipSpecialtyStart DateEnd Date Cisco Bonilla DO [address] [facility], [facility] [place] [address] PCP - GeneralFamily Medicine12/19/19 Goals (unrecognized section [...] or prosecute any alcohol or drug abuse patient.[facility] RehabilitationIn the event this information is protected by the Federal Confidentiality of Alcohol and Drug Abuse Patient Records regulations: The Federal rules restrict any use of the information to criminally investigate or prosecute any alcohol or drug abuse patient.[facility] RehabilitationIn the event this information is protected by the Federal Confidentiality of Alcohol and Drug Abuse Patient Records regulations: The Federal rules restrict any use of the information to criminally investigate or prosecute any alcohol or drug abuse patient.[facility] RehabilitationIn the event this information is protected by the Federal Confidentiality of Alcohol and Drug Abuse Patient Records regulations: The Federal rules restrict any use of the information to criminally investigate or prosecute any alcohol or drug abuse patient.[facility] RehabilitationIn the event this information is protected by the Federal Confidentiality of Alcohol and Drug Abuse Patient Records regulations: The Federal rules restrict any use of the information to criminally investigate or prosecute any alcohol or drug abuse patient.[facility] RehabilitationIn the event this information is protected by the Federal Confidentiality of Alcohol and Drug Abuse Patient Records regulations: The Federal rules restrict any use of the information to criminally investigate or prosecute any alcohol or drug abuse patient.[facility] RehabilitationIn the event this information is protected by the Federal Confidentiality of Alcohol and Drug Abuse Patient Records regulations: The Federal rules restrict any use of the information to criminally investigate or prosecute any alcohol or drug abuse patient.[facility] RehabilitationIn the event this information is protected by the Federal Confidentiality of Alcohol and Drug Abuse Patient Records regulations: The Federal rules restrict any use of the information to criminally investigate or prosecute any alcohol or drug abuse patient.[facility] For RehabilitationIn the event this information is protected by the Federal Confidentiality of Alcohol and Drug Abuse Patient Records regulations: The Federal rules restrict any use of the information to criminally investigate or prosecute any alcohol or drug abuse patient.[facility] FOR RECORDS PERTAINING TO PATIENTS WHO ARE [...] BE BASED ON THE PRIMARY CLINICAL RECORDS. [facility]. provides no warranty or guarantee of the accuracy or completeness of information in this document.
--- OUTSIDE RECORDS SUMMARY | 2025-06-20 22:39 | XMS_ITS | Clinical Summary ---
Author Organization Auth0 tem Address [id number] [address] [place] [address] Care Team Providers Care Teacher Music Name Role Phone Cisco Blanc DO Primary Care Provider [phone] Allergies No known active allergies Medications MedicationSigDispense QuantityRefillsLast FilledStart DateEnd DateStatus hydrocortisone-pramoxine (ANALPRAM-HC) 1-1 % rectal cream Indications:Anal fissureInsert 1 Application into the rectum in the morning and 1 Application before bedtime. 30 g 5Active cloNIDine (CATAPRES) 0.1 mg tablet Take 1 tablet (0.1 mg total) by mouth in the morning and 1 tablet (0.1 mg total) before bedtime. 60 tablet 5Active polyethylene glycol (MIRALAX) 17 gram/dose powder Take 17 g by mouth in the morning. 510 g 5Active wheat dextrin (BENEFIBER SUGAR FREE, DEXTRIN,) 3 gram/4 gram powder Take 3 g by mouth in the morning. 152 g 5Active baclofen (LIORESAL) 10 mg tablet Take 1 tablet (10 mg total) by mouth 3 (three) times a day.Active Active Problems ProblemNoted DateDiagnosed RyzxJjzuyqxtvi79/21/2025Irritable bowel syndrome with both constipation and ihxuodtu26/21/2025hange in bowel ytczkg404Paranoid gcfxbzox64/19/2024olysubstance abuse4Persistent maorgszr90/29/2023 Chronic idiopathic sjmwubevoucn63/14/2022Class 1 obesity due to excess calories with serious comorbidity and body mass index (BMI) of 32.0 to 32.9 in adult 08/04/2022Hypogonadism in male2COVID-1902Delirium tremens 1Severe episode of recurrent major depressive disorder, without psychotic eqgpgeit93/19/2021Essential hypertension, rvlnct931Chronic hepatitis C without hepatic coma5159Ungexgxdr71/17/2021Acute hypoxemic respiratory eqprdtq11/14/2021Polyp of sigmoid colon10/17/2019Diverticulosis 10/17/2019Non-traumatic bcbbmwrhgjgecw93/27/2018Compartment syndrome of hand 12/29/2015Internal impingement of right adbdlwau77/09/5430Yiznuvs24/09/2015 Resolved Problems ProblemNoted DateDiagnosed DateResolved DateColon cancer jrbxuvedo18/21/2020 10/17/20197533Cyacrkdwuo02/29/2023 Encounters DateTypeDepartmentCare UofnMkvhczzokdu09/16/2025Orders Only [facility] Internal Medicine - Family Medicine [address] [place] [address] Ref Prov, Not In System 05/20/2025 10:39 AM EDT - 05/20/2025 11:14 AM EDTEmergenProMedica [facility] [address] [place] [address] Rhoit Renner MD Irritable bowel syndrome with both constipation and diarrhea (Primary Dx); Anxiety Discharge Disposition: Home05/20/20256305Iacnqw25/22/2025Refill [facility] Internal Medicine - Family Medicine [address] [place] [address] Cisco Blanc, DO Anal fissure (Primary Dx)05/08/2025Orders Only [facility] Internal Medicine - Family Medicine [address] [place] [address] Ref Prov, Not In System 04/11/2025[facility] [address] [place] [address] Ref Prov, Not In System 03/22/2025Refill [facility] - [facility] [address] [place] [address] Cisco Blanc, DO Anxietyfrom Last 3 Months Immunizations ImmunizationAdministration DatesNext DueInfluenza, Injectable, quadrivalent (PF) 06/20/2021,04/06/2020,06/07/2019Tdap10/27/2013 Family History Medical HistoryRelationNameCommentsHypertensionBrother 1JohnNo Known Problems Brother 2RobertNo Known ProblemsDaughterCoronary artery diseaseFatherHeart attackFatherHeart attackMaternal GrandfatherHypertensionMotherHeart attack Paternal GrandfatherRelationNameStatusCommentsBrother 1JohnAliveBrother 2Robert AliveDaughterAliveFatherAliveMaternal GrandfatherMotherAlivePaternal Grandfather Social History Tobacco UseTypesPacks/DayYears UsedDateSmoking Tobacco: SvovcbUybemliewt494 07/23/1985 - 12/20/2018Passive Smoke Exposure: PastSmokeless Tobacco: Never Tobacco Cessation:Counseling Given: Not Answered Comments:vape, today Alcohol UseStandard Drinks/WeekCommentsYes0 (1 standard drink = 0.6 oz pure alcohol)OccasionalAHC UtilitiesAnswerDate RecordedIn the past 12 months has the Partnered, gas, oil, or water [employer] threatened to shut off services in your home?Yes09/11/2024Social Connection and Isolation PanelAnswerDate RecordedIn a typical week, how many times do you talk on the phone with family, friends, or neighbors?Twice a week08/01/2022How often do you get together with friends or relatives?Once a week08/01/2022How often do you attend sikhism or amish services?Never08/01/2022ctive Member of Clubs or OrganizationsNot on file 08/01/2022How often do you attend meetings of the clubs or organizations you belong to?Never08/01/2022re you , , , , never , or living with a partner?Never pmbxtdu6108/01/2022UDIT-CAnswerDate RecordedQ1: How often do you have a drink containing alcohol?Monthly or less 09/11/2024Q2: How many drinks containing alcohol do you have on a typical day when you are drinking?Patient does not drink09/11/2024Q3: How often do you have six or more drinks on one occasion?Less than nspdwry9409/11/2024Overall Financial Resource Strain (CARDIA)AnswerDate RecordedHow hard is it for you to pay for the very basics like food, housing, medical care, and heating?Very hard12/06/2023 PHQ-2AnswerDate RecordedTotal Vtnyw042312/10/2024Finamerican fork hospital Dora of Occupational Health - Occupational Stress QuestionnaireAnswerDate [...] part of a household?Yes12/06/2023hildcareAnswerDate RecordedDo problems getting early childhood worker make 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 you to work [...] InformationValueDate RecordedSex Assigned at BirthNot on fileLegal UikTgjy6303/27/2015 11:30 AM EDTGender IdentityNot on fileSexual OrientationNot on file Last Filed Vital Signs Vital SignReadingTime TakenCommentsBlood Hwvosskp118/9705/20/2025 11:13 AM EDT Hgkyn582205/20/2025 11:13 AM ONIQkiwjdhuirq66.7 ??C (98 ??F)05/20/2025 10:46 AM EDTRespiratory Kzxq193505/20/2025 11:13 AM EDTOxygen Uiqkigrurb166%05/20/2025 11:13 AM EDTInhaled Oxygen Concentration--Fgdgbz66.9 kg (174 lb)05/20/2025 10:46 AM CHHJpvtyz166.7 cm (5' 8 )05/20/2025 10:46 AM EDTBody Mass Index26.46 05/20/2025 10:46 AM EDT Plan of Treatment Health MaintenanceDue DateLast DoneCommentsAdult BMI Follow Up Plan1986 DTaP,Tdap and Td Vaccines (2 - Td or Tdap)/03/2014COVID-19 Vaccine ( - season), 12/08/2020, 11/18/2020Influenza Qjfihyw48, 04/06/2020, 06/07/2019Depression Screening Zoster (Shingles) Vaccine (1 of 2)12/10/2025Postponed from 2018 (Patient Refused)Adult BMI Foxxrxpur43Tobacco Qbueooieu67olonoscopy/, 02/17/2024 Goals GoalPatient Goal TypeAssociated ProblemsRecent ProgressPatient-Stated?Author home with [facility] hospital care Jenny Miguel, RN Note: Evaluation of progress towards goal: with support from friends and family, patient needs to fllow up with [facility] [place] Medical Devices Not on file Procedures Procedure NamePriorityDate/TimeAssociated DiagnosisCommentsXR ANKLE RT MIN 3 VWS Iqttwzf0206/06/2025 8:30 AM EDTXR FOOT RT MIN 3 TEHIajzyuh68/16/2025 8:28 AM EDTXR ABDOMEN AP 1 TJFaswnfy08/16/2025 9:17 AM EDTPROVATION COLONOSCOPYRoutine 02/17/2024 1:59 PM EDT from Last 3 Months or Most Recently Relevant to Health Maintenance Results * X-ray ankle right minimum 3 views (06/06/2025 8:30 AM EDT)Anatomical Region LateralityModalityLower Extremities, MSK, AnkleRightComputed Radiography Narrative Authorizing ProviderResult TypeResult StatusNot In System Ref ProvIMG DIAGNOSTIC IMAGING ORDERABLESFinal Result * X-ray foot right minimum 3 views (06/06/2025 8:28 AM EDT)Anatomical Region LateralityModalityLower Extremities, MSK, FootRightComputed Radiography Narrative Authorizing ProviderResult TypeResult StatusNot In System Ref ProvIMG DIAGNOSTIC IMAGING ORDERABLESFinal Result * X-ray abdomen ap 1 view (05/07/2025 9:17 AM EDT)Anatomical RegionLaterality ModalityBody, AbdomenN/AComputed Radiography Narrative Authorizing ProviderResult TypeResult StatusNot In System Ref ProvIMG DIAGNOSTIC IMAGING ORDERABLESFinal Result * Colonoscopy Report (02/17/2024 1:59 PM EDT)Specimen (Source)Anatomical Location / LateralityCollection Method / VolumeCollection TimeReceived Time Narrative SYSTEMGENERATED, DOCUMENTATION - 02/17/2024 1:59 PM EDT This order has been auto-finalized for image and report archival in PACs. *For full report details, please reach out to your physician. ??This image is visible to you in MyChart.* Authorizing ProviderResult TypeResult StatusTy Burciaga DOIMG OR IMG ORDERABLES Final Result from Last 3 Months or Most Recently Relevant to Health Maintenance Insurance * Guarantor: [id number] TypeRelation to PatientDate of BirthPhoneBilling AddressCorporateEmployer * Guarantor: Bishop CUNNINGHAM TypeRelation to PatientDate of PhoneBilling AddressCorporateOther [facility] [address] [place] [address] * Guarantor: MILKA Alas TypeRelation to PatientDate of BirthPhone Billing AddressCorporateEmployer * Guarantor: CORRECT CAREAccount TypeRelation to PatientDate of BirthPhone Billing AddressCorporateEmployer Advance Directives * Full Code (Latest Code Status on File) Date ActivatedDate InactivatedComments03/04/2021 9:32 AM03/10/2021 10:20 PM * Full Code Date ActivatedDate InactivatedComments01/16/2018 1:54 PM01/17/2018 3:11 PM Care Teams Team MemberRelationshipSpecialtyStart DateEnd Date Cisco Blanc DO [address] [place] [address] [facility]12/19/19
--- OUTSIDE RECORDS SUMMARY | 2025-06-20 22:39 | XMS_ITS | Patient Health Record ---
Author Organization [facility] [place] Address [address] [place] [address] Care Team Providers Care Conduit Worker Name Role Phone Cisco Blanc DO Primary Care Provider Unavail able Allergies No Known Allergies Reason For Referral No Information Medications Medication SIG (Take, Route, Frequency, Duration) Notes Start Date End Date Status HYDROcodone-Acetaminophen 5-325 MG 1 tab let as needed for pain Orally every 4 hours; Duration: 7 days 02/28/2023ctiveGabapentin 300 MGTAKE 1 CAPSULE BY MOUTH THREE TIMES DAILY Oral; Duration: 30 DaysActiveMetoprolol Tartrate 25 MGtake 1 tablet by mouth twice a day Oral; Duration: 30 DaysActiveHYDROcodone-Acetaminophen 5-325 MG1 tablet as needed for pain Orally every 6 hrs; Duration: 7 days03/07/2023ctive Amitriptyline HCl 25 MGtake 1 tablet by mouth once daily Oral; Duration: 30 Days ActiveALPRAZolam 1 MGTAKE 1 TABLET BY MOUTH THREE TIMES DAILY NEEDED Oral; Duration: 30 DaysActiveCephalexin 500 MG1 capsule Orally every 8 hrs; Duration: 7 days02/24/2023ctiveamLODIPine Besylate 5 MGtake 1 tablet by mouth once daily Oral; Duration: 30 DaysActive Social History Tobacco Use: Social History Observation Description Date Details (start date - stop date) Unknown if ever smoked NA - NA Tobacco Use/Smoking Question Answer Notes Patient is a unknown if ever smoked Problems Problem Type SNOMED Code ICD Code Onset Dates Problem Status W/U Status Risk Notes Problem Metatarsal bone fracture (198415 009) Displaced fracture of second metatarsal bone, right foot, subsequent encounter for fracture with routine healing (S92.321D) ActiveconfirmedProblemDisplaced fracture of distal phalanx of right great toe, subsequent encounter for fracture with routine healing (S92.421D)Activeconfirmed Plan Of Treatment No Information Insurance Providers Payer Name Payer Address Payer Phone Subscriber Number Group Number Insured Name Patient Relationship to Insured Coverage Start Date Coverage End Date [employer] [place] [employer] [address] [place] [address] [id number] Ambika Russellelf - patient is the insured Medical (General) History Medical History History ICD Code Hypertension I10 Right foot pain M79.671 Surgical History Surgery Date(Month/Year) appendectomy compartment syndrome left hand
--- OUTSIDE RECORDS SUMMARY | 2025-06-20 22:39 | XMS_ITS | Clinical Summary ---
Author Organization [facility] Address [address] [place] [address], [address] [place] [address] Care Team Providers Care Kier Operator Name Role Phone Tyson Fonseca MD [...] InformationValueDate RecordedSex Assigned at BirthNot on fileLegal HizRejx39/18/2016 11:50 AM ESTGender IdentityNot on fileSexual OrientationNot on file Last Filed Vital Signs Vital SignReadingTime TakenCommentsBlood Crrlclos658/9007/09/2016 2:16 PM EST Sjhbf160507/09/2016 2:16 PM KNDHiueuhudfus67.5 ??C (97.7 ??F)07/09/2016 11:57 AM ESTRespiratory Jhun499809/08/2015 2:01 PM ESTOxygen Dtlsyulnjb24%07/09/2016 2:01 PM ESTInhaled Oxygen Concentration--Iuqckq69.1 kg (170 lb)07/09/2016 11:57 AM ESTHeight--Body Mass Index-- Plan of Treatment Not on file Care Teams Team MemberRelationshipSpecialtyStart DateEnd Date Tyson Fonseca MD [facility]07/09/16
--- OUTSIDE RECORDS SUMMARY | 2025-06-20 22:39 | XMS_ITS | Clinical Summary ---
Author Organization [facility] Address [address] [place] [address] Care Team Providers Care Lawn Maintenance Worker Name Role Phone Unavailable Primary Care Provider Unavailabl e Social History Tobacco UseTypesPacks/DayYears UsedDateSmoking Tobacco: Never AssessedUT Safety & EnvironmentAnswerDate RecordedFear of Current or Ex-PartnerNot on file 10/13/2023Emotionally AbusedNot on file4Physically AbusedNot on file 10/13/2023Sexually AbusedNot on file4Physically or Sexually AbusedNot on file10/13/2023Sex and Gender InformationValueDate RecordedSex Assigned at BirthNot on fileLegal ModYaow0102/17/2022 11:50 PM EDTGender IdentityNot on file Sexual OrientationNot on file Plan of Treatment Health MaintenanceDue DateLast DoneCommentsCT Pqiuchenyzer81/14/1969Colonoscopy 1968Colorectal Cancer Dhlzqhqie99/14/1969FIT-DNA1968FIT1968 FOBT1968 2456Nhiircoaaxqtv35/14/1969Depression Skwwszkcf63/14/1981Hepatitis B Vaccines (1 of 3 - 19+ 3-dose series)1987Pneumococcal Vaccine: Pediatrics (0 to 5 Years) and At-Risk Patients (6 to 64 Years) (1 of 2 - PCV)1987 Adult Lgtncnb6109/04/1990Zoster Vaccines (1 of 2)2018COVID-19 Vaccine (1 - 2024- season)2025Influenza Vaccine (#1)2025HIB VaccinesAged OutNo longer eligible based on patient's age to complete this topicHPV VaccinesAged OutNo longer eligible based on patient's age to complete this topicIPV Vaccines Aged OutNo longer eligible based on patient's age to complete this topic Meningococcal B VaccineAged OutNo longer eligible based on patient's age to complete this topicMeningococcal VaccineAged OutNo longer eligible based on patient's age to complete this topicRotavirus VaccinesAged OutNo longer eligible based on patient's age to complete this topic Insurance
--- OUTSIDE RECORDS SUMMARY | 2025-06-20 22:39 | XMS_ITS | Clinical Summary ---
Author Organization [facility] Address [address] [place] [address] Care Team Providers Care Golf Ball Cover Treater Name Role Phone Unavailable Primary Care Provider Unavailabl e Social History Tobacco UseTypesPacks/DayYears UsedDateSmoking Tobacco: Never AssessedSex and Gender InformationValueDate RecordedSex Assigned at BirthNot on fileLegal Sex Male11/03/2022 7:16 PM EDTGender IdentityNot on fileSexual OrientationNot on file Last Filed Vital Signs Vital SignReadingTime TakenCommentsBlood Pressure--Pulse--Temperature-- Respiratory Rate--Oxygen Saturation--Inhaled Oxygen Concentration--Okbdav19.8 kg (220 lb)07/29/2020 12:00 PM CHVQfzrlg251.7 cm (5' 8 )07/29/2020 12:00 PM ESTBody Mass Index33.45109/29/2019 12:00 PM EST Plan of Treatment Not on file
[2025-06-20 22:42] VITALS: BP 127/89; PULSE 109; TEMP 36.6; O2SAT 99; BMI 22.5
--- NOTE | 2025-06-20 23:02 | XR_ITS ---
[facility] [place] [id number] Patient Name: HARLAN ARNOLD MRN: [id number] date: 1970 Sex: M Assigned Patient Location: ER Current Patient Location: ER Accession/Order Number: [id number] Exam Date: 06/20/2025 23:05 Report Date: 06/20/2025 23:27 At the request of: SYDNIE MESSER MD Procedure: XR abdomen min 2V 2 views of the abdomen INDICATION: Constipation COMPARISON: 05/18/2025 FINDINGS: No free air beneath hemidiaphragms. Lung bases grossly clear. There are multifocal small and large bowel air fluid levels. Moderate colonic stool burden distally. No definite radiopaque calcifications overlying the renal shadows. XR/XR abdomen min 2V IMPRESSION: Multifocal small large bowel air-fluid levels may raise possibility gastroenteritis or versus developing ileus or obstruction . Please correlate with exam findings. Impression dictated by: Erik Cormier M.D. 06/20/2025 11:27 PM Dictation Location: [place] [address] Electronically authenticated by: [id number] Y Date: 06/20/2025 23:27
--- NOTE | 2025-06-20 23:03 | ED.ABDPAIN1 ---
HPI - Abdominal Pain General Chief Complaint: Abdominal Pain Stated Complaint: Constipation Time Seen by Provider: 06/20/25 22:53 Source: patient Mode of arrival: walk-in History of Present Illness HPI narrative: patient presents complaining of constipation. States last normal BM was one week ago. States he had a colonoscopy 2 weeks ago and was found to have internal hemorrhoids and a problem with his anal sphincter. Has been taking laxative for the past week but only small BM. complains of abdominal pain. No vomiting or fever Related Data Home Medications ?Medication ?Instructions ?Recorded ?Confirmed clonidine HCl 0.1 mg tablet mg 05/10/25 Previous Rx's ?Medication ?Instructions ?Recorded ondansetron 4 mg disintegrating 4 mg PO Q6H PRN nausea and 05/06/24 tablet vomiting #12 tabs ciprofloxacin HCl 500 mg tablet 500 mg PO Q12H #20 tabs 05/07/25 (Cipro) metronidazole 500 mg tablet 500 mg PO TID #30 tabs 05/07/25 dicyclomine 10 mg capsule 10 mg PO TID PRN abdominal pain #5 05/14/25 caps Allergies Allergy/AdvReac Type Severity Reaction Status Date / Time No Known Drug Allergies Allergy Verified 05/14/25 08:37 Review of Systems ROS Status of ROS 10 or more systems reviewed and unremarkable except as noted in history and below PFSH PFSH Social History Little interest or pleasure in doing things: not at all Feeling down, depressed, or hopeless: not at all Exam Constitutional Vital Signs, click to edit/add: Last Vital Signs Temp 98 F 06/20/25 22:42 Pulse 80 06/21/25 01:19 Resp 16 06/21/25 01:19 BP 152/94 H 06/21/25 01:19 Pulse Ox 94 L 06/21/25 01:19 O2 Del Method Room Air 06/21/25 01:19 Common normals: average body habitus, oriented x3, no limitations, healthy appearing, alert and well nourished General appearance: anxious HENMT Common normals: normocephalic and head/scalp atraumatic Eye Common normals: EOMs intact bilaterally and conjunctivae normal Respiratory Common normals: normal respiratory effort, no retractions, no use of accessory muscles and clear to auscultation bilaterally Cardio Common normals: regular rate, regular rhythm, S1 normal heart sound and S2 normal heart sound GI Common normals: Normal to inspection, nondistended, normoactive bowel sounds present and soft to palpation Other: diffuse nonspecific tenderness Extremity Common normals: normal to inspection and full ROM Neuro Common normals: oriented x3, CN's II-XII intact bilaterally, moves all extremities and no focal motor deficits Psych Appearance: grossly normal Course Vital Signs Vital signs: Vital Signs Temperature 98 F 06/20/25 22:42 Pulse Rate 109 H 06/20/25 22:42 Respiratory Rate 20 06/20/25 22:42 Blood Pressure 127/89 06/20/25 22:42 Pulse Oximetry 99 06/20/25 22:42 Temperature 98 F 06/20/25 22:42 Pulse Rate 80 06/21/25 01:19 Respiratory Rate 16 06/21/25 01:19 Blood Pressure 152/94 H 06/21/25 01:19 Pulse Oximetry 94 L 06/21/25 01:19 Oxygen Delivery Method Room Air 06/21/25 01:19 MDM - Abdominal Pain MDM Narrative Medical decision making narrative: patient presents complaining of constipation. xray of the abdomen per my review without constipation. ? air fluid levels. Patient advised and CT ordered CT returns with findigs of no acute process. Has liquid stool on CT patient did past loose stool here in the department and is now feeling better. Discharged home and advised to use fiber to regulate his BMs Lab Data Labs: Lab Results 06/20/25 Range/Units 23:48 WBC 6.1 (4.0-11.0) 10^3/uL RBC 4.56 L (4.70-6.10) 10^6/uL Hgb 14.5 (14.0-18.0) g/dL Hct 40.3 L (42.0-54.0) % MCV 88.4 (80.0-94.0) fL MCH 31.8 (25.9-34.0) pg MCHC 36.0 H (29.9-35.2) g/dL RDW 11.3 (11.0-15.0) % Plt Count 228 (150-450) 10^3/uL MPV 9.9 (9.5-13.5) fL Neut % (Auto) 74.9 (43.0-75.0) % Lymph % (Auto) 13.5 L (20.5-60.0) % [place] % (Auto) 8.7 (1.7-12.0) % Eos % (Auto) 2.1 (0.9-7.0) % Baso % (Auto) 0.5 (0.2-2.0) % Neut # (Auto) 4.5 (1.4-6.5) 10^3/uL Lymph # (Auto) 0.8 L (1.2-3.8) 10^3/uL [place] # (Auto) 0.5 (0.3-0.8) 10^3/uL Eos # (Auto) 0.1 (0.0-0.7) 10^3/uL Baso # (Auto) 0.0 (0.0-0.1) 10^3/uL Abs Immat Gran (auto) 0.02 (0.00-0.03) 10^3/uL Imm/Tot Granulo (auto) 0.3 (0.0-0.5) % Sodium 136 (136-145) mmol/L Potassium 3.6 (3.5-5.1) mmol/L Chloride 97 L (98-107) mmol/L Carbon Dioxide 28.6 (21.0-32.0) mmol/L Anion Gap 14.0 BUN 16.0 (7.0-18.0) mg/dL Creatinine 0.77 (0.70-1.30) mg/dL Est GFR ( Amer) >60 (>=60 mL/min/1.73m^2) Est GFR (Non-Af Amer) >60 (>=60 mL/min/1.73m^2) BUN/Creatinine Ratio 20.8 Glucose 104 (74-106) mg/dL Lactate 0.8 (0.4-2.0) mmol/L Calcium 9.2 (8.5-10.1) mg/dL Total Bilirubin 0.7 (0.2-1.0) mg/dL AST 25 (15-37) U/L ALT 36 (16-63) U/L Alkaline Phosphatase 117 H (46-116) U/L Total Protein 7.1 (6.4-8.2) g/dL Albumin 3.9 (3.4-5.0) g/dL Globulin 3.2 g/dL Albumin/Globulin Ratio 1.2 Lipase 38.0 (16.0-77.0) U/L Discharge Plan Discharge Chief Complaint: Abdominal Pain Clinical Impression: Abdominal pain, Diarrhea Patient Disposition: Home, Self-Care Prescriptions / Home Meds: No Action metronidazole 500 mg tablet 500 mg PO TID Qty: 30 0RF ciprofloxacin HCl [Cipro] 500 mg tablet 500 mg PO Q12H Qty: 20 0RF clonidine HCl 0.1 mg tablet ondansetron 4 mg tablet,disintegrating 4 mg PO Q6H PRN (Reason: nausea and vomiting) Qty: 12 0RF dicyclomine 10 mg capsule 10 mg PO TID PRN (Reason: abdominal pain) Qty: 5 0RF Print Language: Croatian Instructions: Acute Diarrhea (ED), Abdominal Pain (ED) Referrals: MELY BONILLA [Primary Care Provider, Family Practice] - 1 week
[2025-06-20] MEDS: 0.9 % SODIUM CHLORIDE 1,000 ML 100 ML IV (23:57)
[2025-06-20 23:58] LABS: Hematocrit 40.3 % (42.0-54.0); Hemoglobin 14.5 g/dL (14.0-18.0); Immature Granulocytes Abs Auto 0.02 10^3/uL (0.00-0.03); Immature Granulocytes Pct Auto 0.3 % (0.0-0.5); Lymphocytes Absolute Auto 0.8 10^3/uL (1.2-3.8); Mean Corpuscular HGB Conc 36.0 g/dL (29.9-35.2); Mean Corpuscular Hemoglobin 31.8 pg (25.9-34.0); Mean Corpuscular Volume 88.4 fL (80.0-94.0); Platelet Count 228 10^3/uL (150-450); Red Blood Count 4.56 10^6/uL (4.70-6.10); White Blood Count 6.1 10^3/uL (4.0-11.0)
[2025-06-21 00:18] LABS: Alanine Aminotransferase 36 U/L (16-63); Albumin Globulin Ratio 1.2; Albumin Level 3.9 g/dL (3.4-5.0); Alkaline Phosphatase 117 U/L (46-116); Anion Gap 14.0; Aspartate Amino Transferase 25 U/L (15-37); Blood Urea Nitrogen 16.0 mg/dL (7.0-18.0); Calcium 9.2 mg/dL (8.5-10.1); Carbon Dioxide 28.6 mmol/L (21.0-32.0); Chloride 97 mmol/L (98-107); Estimated GFR (African America >60 (>=60 mL/min/1.73m^2); Estimated GFR (Non-African Ame >60 (>=60 mL/min/1.73m^2); Globulin 3.2 g/dL; Glucose 104 mg/dL (74-106); Lipase 38.0 U/L (16.0-77.0); Potassium 3.6 mmol/L (3.5-5.1); Sodium 136 mmol/L (136-145); Total Protein 7.1 g/dL (6.4-8.2)
[2025-06-21 00:20] LABS: Lactate/Lactic Acid 0.8 mmol/L (0.4-2.0)
[2025-06-21 01:19] VITALS: BP 152/94; PULSE 80; O2SAT 94
[2025-06-21 02:54] VITALS: BP 144/90; PULSE 72; O2SAT 94
== END 2025-06-21 02:57 | disposition home or self-care (01) ==
PROVIDERS: Emergency Provider Internal Medicine; PCP Family Medicine
DX: R10.84 Generalized abdominal pain (principal); K59.00 Constipation, unspecified; R19.7 Diarrhea, unspecified
CPT/HCPCS: 36415; 51798; 74019; 74177; 80053; 83605; 83690; 85025; 96361; 96374; 99285; J2405; Q9967

== ENCOUNTER 2025-08-12 10:48 | Outpatient (OUT) | payer OTHER, SELFPAY ==
--- NOTE | 2025-08-12 10:51 | XR_ITS ---
The [address] [address] Patient Name: HARLAN ARNOLD MRN: [id number] date: 1970 Sex: M Assigned Patient Location: RAD Current Patient Location: [facility] Accession/Order Number: [id number] Exam Date: 08/12/2025 10:57 Report Date: 08/12/2025 11:55 At the request of: NON-STAFF PHYSICIAN MD Procedure: XR abdomen 1V SINGLE VIEW ABDOMEN (colonic transit study COMPARISON: CT 06/21/2025 CLINICAL DATA: Constipation and rectal pain. Supine views of the abdomen and pelvis were obtained. There is air within the colon. No prominent colonic stool is seen. There is also small bowel air, without disproportionate distention. There are multiple radiopaque rings (total of 24) overlying the colon from the cecum to the distal descending colon related to patient's transit study. No soft tissue masses are identified. No radiopaque renal stones are seen. There are degenerative changes at the spine and sclerosis at the SI joints. XR/XR abdomen 1V IMPRESSION: NONOBSTRUCTIVE BOWEL GAS PATTERN. Impression dictated by: Anni Whitley M.D. 08/12/2025 11:55 AM Dictation Location: [place] [address] Electronically authenticated by: [id number] Y Date: 08/12/2025 11:55
--- OUTSIDE RECORDS SUMMARY | 2025-08-12 10:51 | XMS_ITS | Encounter Summary ---
Author Organization [facility] Address [address] [place] [address] Care Team Providers Care Felt Hat Flanging Operator Name Role Phone Tyson Fonseca MD Primary Care Provider [phone] Vivian Brady MD Unavailable [phone] Vivian Brady MD Unavailable [phone] Source Comments In the event this information is protected by the Federal Confidentiality of Alcohol and Drug AbusePatient Records regulations: The Federal rules restrict any use of the information to criminally investigate or prosecute any alcohol or drug abuse patient.[facility] Reason for Visit * ReasonOnset DateCommentsRefill Aqynhfo7708/11/2025 Encounter Details DateTypeDepartmentCare Team (Latest Contact Info)Hrmtiobobyk72/21/2025Refill Colorectal Surgery [address] [phone] Lydia Drake PA-C [address] [place], [place] [phone] Refill Request Social History Tobacco UseTypesPacks/DayYears UsedDateSmoking Tobacco: NeverSmokeless Tobacco: NeverArea Deprivation IndexAnswerDate RecordedNational Score (1-100), lower number is lower lxgb251402/28/2025State Score (1-10), lower number is lower risk9 02/28/2025Data from: https://www.neighborhoodatlas.medicine.[facility].edu/. Last address used for jzmadtjgqfk353 [address]02/28/2025Sex and Gender InformationValueDate RecordedSex Assigned at DmpinTmod68/17/2025 4:03 PM EDT Legal AvcMzyb0611/11/2015 1:48 PM EDTGender HryygidgNziy91/17/2025 4:03 PM EDT Sexual WjgfffqvmenPkxlglga40/17/2025 4:03 PM EDTdocumented as of this encounter Plan of Treatment Not on file documented as of this encounter Visit Diagnoses Diagnosis Rectal spasm Anal spasm documented in this encounter Care Teams Team MemberRelationshipSpecialtyStart DateEnd Date Tyson Fonseca MD PCP - GeneralFamily Medicine11/11/15 Vivian Brady MD [address] [place] [address] [id number] Gastroenterology01/16/25 Vivian Brady MD [address] [place] [address] TcsnhyoplXxzwvikmfeepsare84/5/25documented as of this encounter
--- OUTSIDE RECORDS SUMMARY | 2025-08-12 10:51 | XMS_ITS | Clinical Summary ---
Author Organization [facility] Address [address] [place] [address] Care Team Providers Care Machine Buffer Name Role Phone Unavailable Primary Care Provider Unavailabl e Social History Tobacco UseTypesPacks/DayYears UsedDateSmoking Tobacco: Never AssessedUT Safety & EnvironmentAnswerDate RecordedFear of Current or Ex-PartnerNot on file 10/13/2023Emotionally AbusedNot on file10/13/2023hysically AbusedNot on file 10/13/2023Sexually AbusedNot on file4Physically or Sexually AbusedNot on file10/13/2023Sex and Gender InformationValueDate RecordedSex Assigned at BirthNot on fileLegal VrrEexx9802/17/2022 11:50 PM EDTGender IdentityNot on file Sexual OrientationNot on file Plan of Treatment Health MaintenanceDue DateLast DoneCommentsCT Rawlovncwakv77/14/1969Colonoscopy 1968Colorectal Cancer Vynnnljfs70/14/1969FIT-DNA1968FIT1968 FOBT1968 8244Scwcbdlgxrgyt00/14/1969Depression Yxzavyukh95/14/1981Hepatitis B Vaccines (1 of 3 - 19+ 3-dose series)1987Pneumococcal Vaccine: Pediatrics (0 to 5 Years) and At-Risk Patients (6 to 64 Years) (1 of 2 - PCV)1987 Adult Pumczoz8609/04/1990Zoster Vaccines (1 of 2)2018COVID-19 Vaccine (1 - [...] patient's age to complete this topic Insurance * Guarantor: Chai Russell TypeRelation to PatientDate of BirthPhone Billing AddressPersonal/RuipefBjku05/14/1971 [address] [place] [address] * Guarantor: Chai Russell TypeRelation to PatientDate of BirthPhone Billing AddressThird Green Party VfungosgdOpvv66/14/1971 [address] [place] [address]
--- OUTSIDE RECORDS SUMMARY | 2025-08-12 10:51 | XMS_ITS | Patient Health Record ---
Author Organization [facility] [place] Address [address] [place] [address] Care Team Providers Care Inspector Soldering Name Role Phone Cisco Blanc DO Primary [...] Status Risk Notes Problem Metatarsal bone fracture (137255 [id number]) Displaced fracture of second metatarsal bone, [...] End Date [facility] [place] [employer] [address] [place] [address] [id number] Ambika uRssellelf - patient is the insured Medical (General) History Medical History History ICD Code Hypertension I10 Right foot pain M79.671 Surgical History Surgery Date(Month/Year) appendectomy compartment syndrome left hand
--- OUTSIDE RECORDS SUMMARY | 2025-08-12 10:51 | XMS_ITS | Clinical Summary ---
Author Organization [facility] Address [address] [place] [address] Care Team Providers Care Crane Man Name Role Phone Tyson Fonseca MD Primary Care Provider [phone] Vivian Brady MD Unavailable [phone] Vivian Brady MD Unavailable [phone] Allergies No known active allergies Medications MedicationSigDispense [...] 30 DaysActive petrolatum, white 100 % gel 02/19/2025tive plecanatide (TRULANCE) 3 mg tablet Take 3 mg by mouth.5Active polyethylene glycol 3350 17 gram/dose powder Take 17 g by mouth.5Active testosterone cypionate (DEPO-TESTOSTERONE) 200 mg/mL injection 1 mL.4Active BENEFIBER SUGAR FREE, DEXTRIN, 3 gram/4 gram powd Take 3 g by mouth.5Active IBSRELA 50 mg tablet Take 50 mg by mouth two times a day.Active baclofen 10 mg tablet Indications:Rectal spasmTake 1 tablet by mouth two times a day as needed. 60 tablet /ctive baclofen 10 mg tablet Indications:Rectal spasmTake 1 tablet by mouth two times a day as needed. 60 tablet /Discontinued Encounters DateTypeDepartmentCare NyddNouggrxjvin44/22/2025Telephone Colorectal Surgery [address] [phone] Lydia Drake PA-C Patient Aiapvm0608/11/2025Refill Colorectal Surgery [address] [address] Lydia Drake PA-C Refill Qvhjxdc7707/02/2025 Patient Msg Colorectal Surgery [address] [address] Lydia Drake PA-C Follow up from visit dmjmtvcyg15/10/2025 12:08 PM EST - 07/01/2025 6:26 PM [facility] Emergency [facility] [address] [place] [address] Jonh Bethea MD [facility] Discharge Disposition: Home07/01/2025 11:00 AM ESTOffice Visit Colorectal Surgery [address] [address] Lydia Drake PA-C Constipation, unspecified constipation type (Primary Dx); Rectal spasm; Chronic rectal pain; Generalized abdominal pain; Difficulty breathing; Chest otcjefwfwh49/10/6083Hrggkm57/10/2025 Patient Msg Colorectal Surgery [address] [address] Lydia Drake PA-C 06/28/20252813Asmzqh56/06/2025Telephone Colorectal Surgery [address] [address] Suma Navarrete DO Patient Ampiyu7606/26/2025Transcribe Orders [place] [address] Vivian Brady MD Other specified symptoms and signs involving the digestive system and abdomen (Primary Dx); Outlet dysfunction constipation; Other specified disorders of qxfnxo0405/21/2025 Patient Msg Colorectal Surgery [address] [address] Lydia Drake PA-C Appointment Requestfrom Last 3 Months Social History Tobacco UseTypesPacks/DayYears UsedDateSmoking Tobacco: NeverSmokeless Tobacco: Never Tobacco Cessation:Counseling Given: Not Answered Area Deprivation IndexAnswerDate RecordedNational Score (1-100), lower number is lower hquf482202/28/2025State Score (1-10), lower number is lower urpd13302/28/2025 Data from: https://www.neighborhoodatlas.[facility]/. Last address used for ggtwpkrbbut546 [address]/28/2025Sex and Gender InformationValueDate RecordedSex Assigned at CedoyCaij71/17/2025 4:03 PM EDTLegal ZugQkpr5111/11/2015 1:48 PM EDTGender YehwnoqvEqcj44/17/2025 4:03 PM EDTSexual OrientationStraight 03/07/2025 4:03 PM EDT Last Filed Vital Signs Vital SignReadingTime TakenCommentsBlood Kugifobj999/9611 5:30 PM EST Pzuam456007/01/2025 6:00 PM ZVVVfnagerlipi15.1 ??C (97 ??F)07/01/2025 12:15 PM EST Respiratory Vtqr429308/31/2024 12:15 PM ESTOxygen Jcrwfrdpfx967%07/01/2025 6:00 PM ESTInhaled Oxygen Concentration--Stazka96.5 kg (162 lb)07/01/2025 10:57 AM EST Zcxkbd112.3 cm (5' 9 )07/01/2025 10:57 AM ESTBody Mass Index23.9211/05/2025 10:57 AM EST Plan of Treatment Health MaintenanceDue DateLast DoneCommentsAnxiety Rhrvkvisc71/14/1987Depression Dusynpqru18/14/1987HIV Ydbuuqbca32/14/1987Hepatitis B Vaccine (1 of 3 - 19+ 3- dose series)1987CT Sauuvphdhbkd82/14/2014Cologuard (FIT-DNA)2013 Fecal Occult Blood09/04/20135559Brkuuvdianbdc56/14/2014Pneumococcal Vaccine: 50+ (1 of 1 - PCV)2018Shingrix Vaccine (1 of 2)09/04/20183192Ebgfgdaiqhc97/28/2025 02/17/2024olorectal Cancer Eusjdcucx82/28/2025ovid-19 Vaccine ( season), 12/08/2020, 11/18/2020Influenza Vaccine (#1) , 04/06/2020, 06/07/2019Diabetes Azgwzktjw61/21/2028 08/11/2025, 07/01/2025, 12/10/2024, Additional history existsLipid Screening , 07/22/2022rostate Cancer Screening Pcoukxppbp44/21/2030 12/10/2024DTaP,Tdap,Td Vaccine (3 - Td or Tdap), 10/27/2013 RSV Vaccine (1 - 1-dose 75+ series)2043Hepatitis C ScreeningCompleted 09/26/2020, 12/19/2019, 12/19/2019, Additional history exists Procedures Procedure NamePriorityDate/TimeAssociated DiagnosisCommentsHIGH SENSITIVITY TROPONIN T (THIRD) 3 HRS AFTER VNIUPGHWSEE19/10/2025 5:55 PM EST ED BG VENOUS/LAB UAIBJJRrbyxfg19/10/2025 4:56 PM EST HIGH SENSITIVITY TROPONIN T (SECOND)STAT108/31/2024 4:[address] ABD/PEL W AMVKIQLJP55/10/2025 4:37 PM EST MRI LUMBAR SPINE WO/W EUSGXROAY35/10/2025 3:48 PM EST MRI THORACIC SPINE WO/W URTJBLMEE70/10/2025 3:48 PM EST MRI CERVICAL SPINE WO/W NJCAYBBXF66/10/2025 3:48 PM EST HIGH SENSITIVITY TROPONIN T (INITIAL)STAT108/31/2024 1:32 PM EST MAGNESIUM NPSFIEW54/10/2025 12:43 PM EST COMPREHENSIVE METABOLIC EAJHGIPZV69/10/2025 12:43 PM EST CBC + ERMDRJOA06/10/2025 12:43 PM EST PT ED PATIENT YTDFKVTOTFR12/07/2025 from Last 3 Months Results * HIGH SENSITIVITY TROPONIN T (THIRD) 3 HRS AFTER INITIAL (07/01/2025 5:55 PM EST)ComponentValueRef RangeTest MethodAnalysis TimePerformed AtPathologist SignatureTNT High Ztoavcvolcg80<12 ng/L108/31/2024 6:19 PM ESTUN[facility] LABSpecimen (Source)Anatomical Location / LateralityCollection Method / VolumeCollection TimeReceived TimeBloodBLOOD SPECIMEN / UnknownVenipuncture / Zznwaml2607/01/2025 5:55 PM EST07/01/2025 5:59 PM EST Narrative Authorizing ProviderResult TypeResult StatusAchillfrederic Bethea MDLABORATORYFinal ResultPerforming OrganizationAddressCity/State/ZIP CodePhone Number [facility] [address] * (ABNORMAL) ED BG VENOUS/LAB PANELS (07/01/2025 4:56 PM EST)ComponentValueRef RangeTest MethodAnalysis TimePerformed AtPathologist SignaturePotassium (POCT) 3.4(A)3.5 - 5.0 mmol/LED [facility] InstituteCollection Eujx1112BE [facility] InstituteFIO221.0%ED [facility]pecimen (Source)Anatomical Location / LateralityCollection Method / VolumeCollection TimeReceived Time07/01/2025 4:56 PM EST Narrative [facility] POINT OF CARE - 07/01/2025 4:56 PM EST Meter ID:ED ABL2 Location:ED [facility], [address] [place] [address], [facility] Authorizing ProviderResult TypeResult StatusAchiayanna Bethea MDEMERGENCY DEPTFinal ResultPerforming OrganizationAddressCity/State/ZIP CodePhone Number [facility] POINT OF CARE ED [address] * HIGH SENSITIVITY TROPONIN T (SECOND) (07/01/2025 4:44 PM EST)ComponentValueRef RangeTest MethodAnalysis TimePerformed AtPathologist SignatureTNT High Gceosqfcame67<12 ng/L108/31/2024 5:22 PM ESTUNIVERSITY [facility] MAIN LABSpecimen (Source)Anatomical Location / LateralityCollection Method / VolumeCollection TimeReceived TimeBloodBLOOD SPECIMEN / UnknownVenipuncture / Zzuivvw1507/01/2025 4:44 PM EST07/01/2025 5:00 PM EST Narrative Authorizing ProviderResult TypeResult StatusJonh Bethea MDLABORATORYFinal ResultPerforming OrganizationAddressCity/State/ZIP CodePhone Number [facility] [address] [place] [address], * CT ABD/PEL W IVCON (07/01/2025 4:37 PM EST)Anatomical RegionLateralityModality AbdomenComputed TomographySpecimen (Source)Anatomical Location / Laterality Collection Method / VolumeCollection TimeReceived Time07/01/2025 4:37 PM EST Impressions 07/01/2025 5:27 PM EST IMPRESSION: No acute process in the abdomen/pelvis. ??Specifically, no bowel obstruction as queried. Mines Safety Engineer: EB ?? Transcribe Date/Time: Jul 01 2025 ??4:50P Dictated by : KIEL LUKE MD This examination was interpreted and the report reviewed and electronically signed by: ROMULO COLVIN MD on Jul 01 2025 ??5:25PM ??EST Narrative 07/01/2025 5:27 PM EST * * *Final Report* * * DATE OF EXAM: Jul 01 2025 ??4:37PM ?? [facility] ?? 0530 ??- ??CT ABD/PEL W IVCON ??/ PROCEDURE REASON: Bowel obstruction suspected ? * * * * Physician Interpretation * * * * EXAMINATION: ??CT ABDOMEN AND PELVIS WITH IV CONTRAST CLINICAL HISTORY: Unspecified symptoms. ??Suspicion for bowel obstruction. TECHNIQUE: CT of the abdomen and pelvis was performed using standard technique, scanning from just above the dome of the diaphragm to the symphysis pubis. MQ: ??CTAP_3 Contrast: IV: ??100 ml of Omnipaque 350 CT Radiation dose: Integrated Dose-length product (DLP) for this visit = ?? 384 mGy*cm. CT Dose Reduction Employed: Automated exposure control (AEC) COMPARISON: None. RESULT: Liver: No mass. Biliary: No bile duct dilation. ??Gallbladder is unremarkable. Spleen: No mass. No splenomegaly. Pancreas: No mass or duct dilation. Adrenals: No mass. Kidneys: No mass, calculus, or hydronephrosis. ??2.2 cm right upper pole simple cyst. GI tract: No dilation or wall thickening. Colonic diverticulosis without diverticulitis. Presumed fecal material within the transverse colon. Lymph nodes: No abdominal or pelvic lymphadenopathy. Mesentery/Peritoneum: No ascites or mass. Retroperitoneum: No mass. Vasculature: - Abdominal aorta and iliac arteries: Atherosclerotic calcifications without aneurysm. - Celiac and SMA: Patent without stenosis. - Portal venous system (SMV, splenic vein, portal vein and branches): Patent. - Hepatic veins: Patent. Pelvis: No mass, ascites or fluid collection. Bones/Soft Tissues: Degenerative changes of the hips/spine without destructive osseous lesion. ??Mild T12 superior endplate defect appears chronic. ??Small fat-containing umbilical hernia. ??Ventral abdomen subcutaneous nodularity, presumed injection sites. Lower thorax: No focal consolidation. ??Mild dependent atelectasis. Localizer images: No additional findings. Procedure Note Provider, [facility] [place] - 07/01/2025 * * *Final Report* * * DATE OF EXAM: Jul 01 2025 4:37PM [facility] 0530 - CT ABD/PEL W IVCON / PROCEDURE REASON: Bowel obstruction suspected * * * * Physician Interpretation * * * * EXAMINATION: CT ABDOMEN AND PELVIS WITH IV CONTRAST CLINICAL HISTORY: Unspecified symptoms. Suspicion for bowelobstruction. TECHNIQUE: CT of the abdomen and pelvis was performed using standard technique, scanning from just above the dome of the diaphragm to the symphysis pubis. MQ: CTAP_3 Contrast: IV: 100 ml of Omnipaque 350 CT Radiation dose: Integrated Dose-length product (DLP) for this visit = 384 mGy*cm. CT Dose Reduction Employed: Automated exposure control (AEC) COMPARISON: None. RESULT: Liver: No mass. Biliary: No bile duct dilation. Gallbladder is unremarkable. Spleen: No mass. No splenomegaly. Pancreas: No mass or duct dilation. Adrenals: No mass. Kidneys: No mass, calculus, or hydronephrosis. 2.2 cm right upper pole simple cyst. GI tract: No dilation or wall thickening. Colonic diverticulosis without diverticulitis. Presumed fecal material within the transverse colon. Lymph nodes: No abdominal or pelvic lymphadenopathy. Mesentery/Peritoneum: No ascites or mass. Retroperitoneum: No mass. Vasculature: - Abdominal aorta and iliac arteries: Atherosclerotic calcifications without aneurysm. - Celiac and SMA: Patent without stenosis. - Portal venous system (SMV, splenic vein, portal vein and branches): Patent. - Hepatic veins: Patent. Pelvis: No mass, ascites or fluid collection. Bones/Soft Tissues: Degenerative changes of the hips/spine without destructive osseous lesion. Mild T12 superior endplate defect appears chronic. Small fat-containing umbilical hernia. Ventral abdomen subcutaneous nodularity, presumed injection sites. Lower thorax: No focal consolidation. Mild dependent atelectasis. Localizer images: No additional findings. IMPRESSION IMPRESSION: No acute process in the abdomen/pelvis. Specifically, no bowel obstruction as queried. Mines Safety Engineer: EB Transcribe Date/Time: Jul 01 2025 4:50P Dictated by : KIEL LUKE MD This examination was interpreted and the report reviewed and electronically signed by: ROMULO COLVIN MD on Jul 01 2025 5:25PM EST Authorizing ProviderResult TypeResult StatusAchilles Bebos MDCT-PAMAFinal Result * MRI LUMBAR SPINE WO/W IVCON (07/01/2025 3:48 PM EST)Anatomical Region LateralityModalityL-spineMagnetic ResonanceSpecimen (Source)Anatomical Location / LateralityCollection Method / VolumeCollection TimeReceived Time 07/01/2025 3:47 PM EST Impressions 07/01/2025 5:14 PM EST IMPRESSION: Multilevel cervical spondylosis with up to moderate to severe spinal canal and severe neuroforaminal narrowing at C3-4 resulting in RIGHT hemicord compression without signal abnormality. Minimal thoracic spondylosis without high-grade spinal canal stenosis, although there are focal disc bulges at T6-T8 resulting in focal flattening of the ventral cord substance at these levels. ??No associated cord signal abnormality. ??Multilevel variable up to severe bilateral neuroforaminal narrowing at T2-T3. Multilevel lumbar spondylosis with up to moderate spinal canal narrowing at L3-L5 and multifocal nerve root contacts/displacement, as detailed. ?? Multilevel variable up to severe neuroforaminal narrowing at L5-S1. Cervical Anatomic Variant: ??None. ??Assume 7 cervical vertebrae with counting from the craniocervical junction. Anatomic Thoracic/Lumbar Variant: None. ??L4-5 is considered the level of the iliac crest and assume there are 5 lumbar-type vertebrae. URGENT RESULTS Acuity: Urgent Communication: Communicated with Tariq Torres MD on ??07/01/2025 5:08 PM ??via verbal communication. --END OF FINDING-- Mines Safety Engineer: EB ?? Transcribe Date/Time: Jul 01 2025 ??3:48P Dictated by : ZAIRA PEDROZA MD This examination was interpreted and the report reviewed and electronically signed by: TALYA YOO MD on Jul 01 2025 ??5:12PM ??EST Narrative 07/01/2025 5:14 PM EST * * *Final Report* * * DATE OF EXAM: Jul 01 2025 ??3:47PM ?? [facility] ?? 0304 ??- ??MRI LUMBAR SPINE WO/W IVCON ??/ PROCEDURE REASON: saddle anesthesia ? * * * * Physician Interpretation * * * * EXAMINATION: ??MRI CERVICAL SPINE WO/W IVCON, MRI THORACIC SPINE WO/W IVCON, MRI LUMBAR SPINE WO/W IVCON CLINICAL HISTORY: ??Evaluated at outpatient colorectal surgery appointment for worsening rectal pain, pressure, and severe constipation. ??Refer to the ER for chronic abdominal pain with worsening symptoms over the past 2 weeks. ??Provided indication Saddle anesthesia . TECHNIQUE: Routine cervical, thoracic, and lumbosacral spine MR protocol without gadolinium. ??MQ: MRCTLWO_3 COMPARISON: None available. RESULT: Localizer images: ??Right upper pole T2 hyperintense renal cyst. ??No dilated bowel within the vpdcp-ym-ktnz. CERVICAL: Counting reference: ??Craniocervical junction. ?? Anatomic Variants: ??None. Alignment: ?? Straightening of the normal cervical lordosis. Craniocervical junction: ?Craniocervical junction is normal. Cord: ??The cervical spinal cord is within normal limits of signal intensity and morphology. ??No pathologic intradural enhancement. Bone marrow signal/fracture: ?No evidence of pathologic marrow infiltration. ??No evidence of prior fracture. Cervical soft tissues: ?The paraspinal soft tissues are within normal limits. C2-C3: Broad-based disc bulge eccentric to the RIGHT resulting in mild canal narrowing. ??Bilateral foramina are patent. C3-C4: Posterior disc osteophyte complex eccentric to the RIGHT with bilateral ligamentum flavum thickening resulting in moderate to severe spinal canal narrowing asymmetric to the RIGHT with associated cord compression/flattening. ??No clear evidence of intramedullary signal abnormality. ??Right asymmetric disc bulge and bulky right facet and uncovertebral arthropathy contribute to severe right foraminal narrowing. Bulky left facet and uncovertebral arthropathy contribute to severe left foraminal narrowing. C4-C5: Canal remains patent. ??Uncovertebral hypertrophy and facet arthropathy contributes to moderate LEFT and mild RIGHT neuroforaminal narrowing. C5-C6: Diffuse disc bulge and bilateral facet and uncovertebral arthropathy contribute to mild canal narrowing, moderate RIGHT and mild LEFT foraminal narrowing. C6-C7: Canal and LEFT neuroforamen remain patent. ??Moderate RIGHT neuroforaminal narrowing secondary to uncovertebral hypertrophy and facet arthropathy. C7-T1: Canal and LEFT neuroforamen remain patent. ??Mild RIGHT neuroforaminal narrowing secondary to marginal endplate osteophytes and facet arthropathy. THORACIC: Counting reference: ??Craniocervical and lumbosacral junctions. ??For the purposes of this report, ??L4-5 is considered the level of the iliac crest and assume there are 5 lumbar-type vertebrae. ??Anatomic variant: ??None. Alignment: ?? Alignment is anatomic. Cord: ??The thoracic spinal cord is within normal limits of signal intensity and morphology. ??No pathologic intradural enhancement. Bone marrow signal/fracture: ?No evidence of pathologic marrow infiltration. ??Type I degenerative endplate changes within the T11 superior endplate. ??No evidence of acute fracture. ??Prominent Schmorl's node within the T12 superior endplate. Thoracic soft tissues: ?The paraspinal soft tissues are within normal limits. Canal and foramina: ?? Multilevel degenerative changes including multifocal disc protrusions at T6-7 and T7-8 resulting in up to mild canal narrowing and broad abutment/flattening of the ventral substance without associated signal abnormality. ??No high-grade spinal canal stenosis. ??Scattered facet arthropathy resulting in up to moderate to severe bilateral neuroforaminal narrowing at T2-T3. LUMBAR: Counting reference: ??Craniocervical and lumbosacral junctions. ??For the purposes of this report, ??L4-5 is considered the level of the iliac crest and assume there are 5 lumbar-type vertebrae. ??Anatomic variant: ??None. Alignment: ?? Alignment is anatomic. Bone marrow signal/fracture: ?? No evidence of pathologic marrow infiltration. ??No evidence of prior fracture. Conus: ?The conus terminates at L1 and is within normal limits of morphology and signal. ??Normal course and caliber of the descending cauda equina nerve roots. No evidence of abnormal intradural enhancement. Paraspinal soft tissues: ?Paraspinal soft tissues are within normal limits. T12-L1: ??Canal and foramina are patent. L1-L2: ?Canal and foramina are patent. ??RIGHT facet arthropathy. L2-L3: ?Mild spinal canal narrowing secondary to shallow disc bulge and bilateral ligamentum flavum thickening. ??Bilateral facet arthropathy without significant neuroforaminal narrowing. L3-L4: ?Diffuse disc bulge and bilateral facet arthropathy resulting in moderate canal narrowing. ??Effacement of the bilateral subarticular zones with contact of the bilateral traversing L4 nerve roots without evidence of impingement. ??Bilateral facet arthropathy resulting in mild to moderate RIGHT and mild LEFT neuroforaminal narrowing. L4-L5: ?Diffuse disc bulge and bilateral facet arthropathy resulting in moderate spinal canal narrowing. ??Effacement of the bilateral subarticular zones resulting in displacement of the bilateral traversing L5 nerve roots, possibly partial impingement on the LEFT. ??Moderate LEFT and mild RIGHT neuroforaminal narrowing.. L5-S1: ?Canal remains patent. ??Diffuse Disc bulge and bilateral facet arthropathy result in severe bilateral neuroforaminal narrowing. Sacrum and iliac wings: ?? The visualized sacrum and iliac wings are within normal limits. ??The presacral soft tissues are normal in appearance. Procedure Note Provider, [facility] - 07/01/2025 * * *Final Report* * * DATE OF EXAM: Jul 01 2025 3:47PM [facility] 0304 - MRI LUMBAR SPINE WO/W IVCON / PROCEDURE REASON: saddle anesthesia * * * * Physician Interpretation * * * * EXAMINATION: MRI CERVICAL SPINE WO/W IVCON, MRI THORACIC SPINE WO/W IVCON, MRI LUMBAR SPINE WO/W IVCON CLINICAL HISTORY: Evaluated at outpatient colorectal surgery appointment for worsening rectal pain, pressure, and severe constipation. Refer to the ER for chronic abdominal pain with worsening symptoms over the past 2 weeks. Provided indication Saddle anesthesia . TECHNIQUE: Routine cervical, thoracic, and lumbosacral spine MR protocol without gadolinium. MQ: MRCTLWO_3 COMPARISON: None available. RESULT: Localizer images: Right upper pole T2 hyperintense renal cyst. No dilated bowel within the bknko-bx-qfle. CERVICAL: Counting reference: Craniocervical junction. Anatomic Variants:None. Alignment: Straightening of the normal cervical lordosis. Craniocervical junction: Craniocervical junction is normal. Cord: The cervical spinal cord is within normal limits of signal intensity and morphology. No pathologic intradural enhancement. Bone marrow signal/fracture: No evidence of pathologic marrow infiltration. No evidence of prior fracture. Cervical soft tissues: The paraspinal soft tissues are within normal limits. C2-C3: Broad-based disc bulge eccentric to the RIGHT resulting in mild canal narrowing. Bilateral foramina are patent. C3-C4: Posterior disc osteophyte complex eccentric to the RIGHT with bilateral ligamentum flavum thickening resulting in moderate to severe spinal canal narrowing asymmetric to the RIGHT with associated cord compression/flattening. No clear evidence of intramedullary signal abnormality. Right asymmetric disc bulge and bulky right facet and uncovertebral arthropathy contribute to severe right foraminal narrowing. Bulky left facet and uncovertebral arthropathy contribute to severe left foraminal narrowing. C4-C5: Canal remains patent. Uncovertebral hypertrophy and facet arthropathy contributes to moderate LEFT and mild RIGHT neuroforaminal narrowing. C5-C6: Diffuse disc bulge and bilateral facet and uncovertebral arthropathy contribute to mild canal narrowing, moderate RIGHT and mild LEFT foraminal narrowing. C6-C7: Canal and LEFT neuroforamen remain patent. Moderate RIGHT neuroforaminal narrowing secondary to uncovertebral hypertrophy and facet arthropathy. C7-T1: Canal and LEFT neuroforamen remain patent. Mild RIGHT neuroforaminal narrowing secondary to marginal endplate osteophytes and facet arthropathy. THORACIC: Counting reference: Craniocervical and lumbosacral junctions. For the purposes of this report, L4-5 is considered the level of the iliac crest and assume there are 5 lumbar-type vertebrae. Anatomic variant: None. Alignment: Alignment is anatomic. Cord: The thoracic spinal cord is within normal limits of signal intensity and morphology. No pathologic intradural enhancement. Bone marrow signal/fracture: No evidence of pathologic marrow infiltration. Type I degenerative endplate changes within the T11 superior endplate. No evidence of acute fracture. Prominent Schmorl's node within the T12 superior endplate. Thoracic soft tissues: The paraspinal soft tissues are within normal limits. Canal and foramina: Multilevel degenerative changes including multifocal disc protrusions at T6-7 and T7-8 resulting in up to mild canal narrowing and broad abutment/flattening of the ventral substance without associated signal abnormality. No high-grade spinal canal stenosis. Scattered facet arthropathy resulting in up to moderate to severe bilateral neuroforaminal narrowing at T2-T3. LUMBAR: Counting reference: Craniocervical and lumbosacral junctions. For the purposes of this report, L4-5 is considered the level of the iliac crest and assume there are 5 lumbar-type vertebrae. Anatomic variant: None. Alignment: Alignment is anatomic. Bone marrow signal/fracture: No evidence of pathologic marrow infiltration. No evidence of prior fracture. Conus: The conus terminates at L1 and is within normal limits of morphology and signal. Normal course and caliber of the descending cauda equina nerve roots. No evidence of abnormal intradural enhancement. Paraspinal soft tissues: Paraspinal soft tissues are within normal limits. T12-L1: Canal and foramina are patent. L1-L2: Canal and foramina are patent. RIGHT facet arthropathy. L2-L3: Mild spinal canal narrowing secondary to shallow disc bulge and bilateral ligamentum flavum thickening. Bilateral facet arthropathy without significant neuroforaminal narrowing. L3-L4: Diffuse disc bulge and bilateral facet arthropathy resulting in moderate canal narrowing. Effacement of the bilateral subarticular zones with contact of the bilateral traversing L4 nerve roots without evidence of impingement. Bilateral facet arthropathy resulting in mild to moderate RIGHT and mild LEFT neuroforaminal narrowing. L4-L5: Diffuse disc bulge and bilateral facet arthropathy resulting in moderate spinal canal narrowing. Effacement of the bilateral subarticular zones resulting in displacement of the bilateral traversing L5 nerve roots, possibly partial impingement on the LEFT. Moderate LEFT and mild RIGHT neuroforaminal narrowing.. L5-S1: Canal remains patent. Diffuse Disc bulge and bilateral facet arthropathy result in severe bilateral neuroforaminal narrowing. Sacrum and iliac wings: The visualized sacrum and iliac wings are within normal limits. The presacral soft tissues are normal in appearance. IMPRESSION IMPRESSION: Multilevel cervical spondylosis with up to moderate to severe spinal canal and severe neuroforaminal narrowing at C3-4 resulting in RIGHT hemicord compression without signal abnormality. Minimal thoracic spondylosis without high-grade spinal canal stenosis, although there are focal disc bulges at T6-T8 resulting in focal flattening of the ventral cord substance at these levels. No associated cord signal abnormality. Multilevel variable up to severe bilateral neuroforaminal narrowing at T2-T3. Multilevel lumbar spondylosis with up to moderate spinal canal narrowing at L3-L5 and multifocal nerve root contacts/displacement, as detailed. Multilevel variable up to severe neuroforaminal narrowing at L5-S1. Cervical Anatomic Variant: None. Assume 7 cervical vertebrae with counting from the craniocervical junction. Anatomic Thoracic/Lumbar Variant: None. L4-5 is considered the level of the iliac crest and assume there are 5 lumbar-type vertebrae. URGENT RESULTS Acuity: Urgent Communication: Communicated with Tariq Torres MD on 07/01/2025 5:08 PM via verbal communication. --END OF FINDING-- Mines Safety Engineer: EB Transcribe Date/Time: Jul 01 2025 3:48P Dictated by : ZAIRA PEDROZA MD This examination was interpreted and the report reviewed and electronically signed by: TALYA YOO MD on Jul 01 2025 5:12PM EST Authorizing ProviderResult TypeResult StatusAchilles Bebos MDMRI-PAMAFinal Result * MRI THORACIC SPINE WO/W IVCON (07/01/2025 3:48 PM EST)Anatomical Region LateralityModalityT-spineMagnetic ResonanceSpecimen (Source)Anatomical Location / LateralityCollection Method / VolumeCollection TimeReceived Time 07/01/2025 3:47 PM EST Impressions 07/01/2025 5:14 PM EST IMPRESSION: Multilevel cervical spondylosis with up to moderate to severe spinal canal and severe neuroforaminal narrowing at C3-4 resulting in RIGHT hemicord compression without signal abnormality. Minimal thoracic spondylosis without high-grade spinal canal stenosis, although there are focal disc bulges at T6-T8 resulting in focal flattening of the ventral cord substance at these levels. ??No associated cord signal abnormality. ??Multilevel variable up to severe bilateral neuroforaminal narrowing at T2-T3. Multilevel lumbar spondylosis with up to moderate spinal canal narrowing at L3-L5 and multifocal nerve root contacts/displacement, as detailed. ?? Multilevel variable up to severe neuroforaminal narrowing at L5-S1. Cervical Anatomic Variant: ??None. ??Assume 7 cervical vertebrae with counting from the craniocervical junction. Anatomic Thoracic/Lumbar Variant: None. ??L4-5 is considered the level of the iliac crest and assume there are 5 lumbar-type vertebrae. URGENT RESULTS Acuity: Urgent Communication: Communicated with Tariq Torres MD on ??07/01/2025 5:08 PM ??via verbal communication. --END OF FINDING-- Mines Safety Engineer: EB ?? Transcribe Date/Time: Jul 01 2025 ??3:48P Dictated by : ZAIRA PEDROZA MD This examination was interpreted and the report reviewed and electronically signed by: TALYA YOO MD on Jul 01 2025 ??5:12PM ??EST Narrative 07/01/2025 5:14 PM EST * * *Final Report* * * DATE OF EXAM: Jul 01 2025 ??3:47PM ?? QBM ?? [id number] ??- ??MRI THORACIC SPINE WO/W IVCON ??/ PROCEDURE REASON: saddle anesthesia ? * * * * Physician Interpretation * * * * EXAMINATION: ??MRI CERVICAL SPINE WO/W IVCON, MRI THORACIC SPINE WO/W IVCON, MRI LUMBAR SPINE WO/W IVCON CLINICAL HISTORY: ??Evaluated at outpatient colorectal surgery appointment for worsening rectal pain, pressure, and severe constipation. ??Refer to the ER for chronic abdominal pain with worsening symptoms over the past 2 weeks. ??Provided indication Saddle anesthesia . TECHNIQUE: Routine cervical, thoracic, and lumbosacral spine MR protocol without gadolinium. ??MQ: [id number] COMPARISON: None available. RESULT: Localizer images: ??Right upper pole T2 hyperintense renal cyst. ??No dilated bowel within the [id number]. CERVICAL: Counting reference: ??Craniocervical junction. ?? Anatomic Variants: ??None. Alignment: ?? Straightening of the normal cervical lordosis. Craniocervical junction: ?Craniocervical junction is normal. Cord: ??The cervical spinal cord is within normal limits of signal intensity and morphology. ??No pathologic intradural enhancement. Bone marrow signal/fracture: ?No evidence of pathologic marrow infiltration. ??No evidence of prior fracture. Cervical soft tissues: ?The paraspinal soft tissues are within normal limits. C2-C3: Broad-based disc bulge eccentric to the RIGHT resulting in mild canal narrowing. ??Bilateral foramina are patent. C3-C4: Posterior disc osteophyte complex eccentric to the RIGHT with bilateral ligamentum flavum thickening resulting in moderate to severe spinal canal narrowing asymmetric to the RIGHT with associated cord compression/flattening. ??No clear evidence of intramedullary signal abnormality. ??Right asymmetric disc bulge and bulky right facet and uncovertebral arthropathy contribute to severe right foraminal narrowing. Bulky left facet and uncovertebral arthropathy contribute to severe left foraminal narrowing. C4-C5: Canal remains patent. ??Uncovertebral hypertrophy and facet arthropathy contributes to moderate LEFT and mild RIGHT neuroforaminal narrowing. C5-C6: Diffuse disc bulge and bilateral facet and uncovertebral arthropathy contribute to mild canal narrowing, moderate RIGHT and mild LEFT foraminal narrowing. C6-C7: Canal and LEFT neuroforamen remain patent. ??Moderate RIGHT neuroforaminal narrowing secondary to uncovertebral hypertrophy and facet arthropathy. C7-T1: Canal and LEFT neuroforamen remain patent. ??Mild RIGHT neuroforaminal narrowing secondary to marginal endplate osteophytes and facet arthropathy. THORACIC: Counting reference: ??Craniocervical and lumbosacral junctions. ??For the purposes of this report, ??L4-5 is considered the level of the iliac crest and assume there are 5 lumbar-type vertebrae. ??Anatomic variant: ??None. Alignment: ?? Alignment is anatomic. Cord: ??The thoracic spinal cord is within normal limits of signal intensity and morphology. ??No pathologic intradural enhancement. Bone marrow signal/fracture: ?No evidence of pathologic marrow infiltration. ??Type I degenerative endplate changes within the T11 superior endplate. ??No evidence of acute fracture. ??Prominent Schmorl's node within the T12 superior endplate. Thoracic soft tissues: ?The paraspinal soft tissues are within normal limits. Canal and foramina: ?? Multilevel degenerative changes including multifocal disc protrusions at T6-7 and T7-8 resulting in up to mild canal narrowing and broad abutment/flattening of the ventral substance without associated signal abnormality. ??No high-grade spinal canal stenosis. ??Scattered facet arthropathy resulting in up to moderate to severe bilateral neuroforaminal narrowing at T2-T3. LUMBAR: Counting reference: ??Craniocervical and lumbosacral junctions. ??For the purposes of this report, ??L4-5 is considered the level of the iliac crest and assume there are 5 lumbar-type vertebrae. ??Anatomic variant: ??None. Alignment: ?? Alignment is anatomic. Bone marrow signal/fracture: ?? No evidence of pathologic marrow infiltration. ??No evidence of prior fracture. Conus: ?The conus terminates at L1 and is within normal limits of morphology and signal. ??Normal course and caliber of the descending cauda equina nerve roots. No evidence of abnormal intradural enhancement. Paraspinal soft tissues: ?Paraspinal soft tissues are within normal limits. T12-L1: ??Canal and foramina are patent. L1-L2: ?Canal and foramina are patent. ??RIGHT facet arthropathy. L2-L3: ?Mild spinal canal narrowing secondary to shallow disc bulge and bilateral ligamentum flavum thickening. ??Bilateral facet arthropathy without significant neuroforaminal narrowing. L3-L4: ?Diffuse disc bulge and bilateral facet arthropathy resulting in moderate canal narrowing. ??Effacement of the bilateral subarticular zones with contact of the bilateral traversing L4 nerve roots without evidence of impingement. ??Bilateral facet arthropathy resulting in mild to moderate RIGHT and mild LEFT neuroforaminal narrowing. L4-L5: ?Diffuse disc bulge and bilateral facet arthropathy resulting in moderate spinal canal narrowing. ??Effacement of the bilateral subarticular zones resulting in displacement of the bilateral traversing L5 nerve roots, possibly partial impingement on the LEFT. ??Moderate LEFT and mild RIGHT neuroforaminal narrowing.. L5-S1: ?Canal remains patent. ??Diffuse Disc bulge and bilateral facet arthropathy result in severe bilateral neuroforaminal narrowing. Sacrum and iliac wings: ?? The visualized sacrum and iliac wings are within normal limits. ??The presacral soft tissues are normal in appearance. Procedure Note Provider, [facility] - 07/01/2025 * * *Final Report* * * DATE OF EXAM: Jul 01 2025 3:47PM [facility] [id number] - MRI THORACIC SPINE WO/W IVCON / PROCEDURE REASON: saddle anesthesia * * * * Physician Interpretation * * * * EXAMINATION: MRI CERVICAL SPINE WO/W IVCON, MRI THORACIC SPINE WO/W IVCON, MRI LUMBAR SPINE WO/W IVCON CLINICAL HISTORY: Evaluated at outpatient colorectal surgery appointment for worsening rectal pain, pressure, and severe constipation. Refer to the ER for chronic abdominal pain with worsening symptoms over the past 2 weeks. Provided indication Saddle anesthesia . TECHNIQUE: Routine cervical, thoracic, and lumbosacral spine MR protocol without gadolinium. MQ: [id number] COMPARISON: None available. RESULT: Localizer images: Right upper pole T2 hyperintense renal cyst. No dilated bowel within the [id number]. CERVICAL: Counting reference: Craniocervical junction. Anatomic Variants:None. Alignment: Straightening of the normal cervical lordosis. Craniocervical junction: Craniocervical junction is normal. Cord: The cervical spinal cord is within normal limits of signal intensity and morphology. No pathologic intradural enhancement. Bone marrow signal/fracture: No evidence of pathologic marrow infiltration. No evidence of prior fracture. Cervical soft tissues: The paraspinal soft tissues are within normal limits. C2-C3: Broad-based disc bulge eccentric to the RIGHT resulting in mild canal narrowing. Bilateral foramina are patent. C3-C4: Posterior disc osteophyte complex eccentric to the RIGHT with bilateral ligamentum flavum thickening resulting in moderate to severe spinal canal narrowing asymmetric to the RIGHT with associated cord compression/flattening. No clear evidence of intramedullary signal abnormality. Right asymmetric disc bulge and bulky right facet and uncovertebral arthropathy contribute to severe right foraminal narrowing. Bulky left facet and uncovertebral arthropathy contribute to severe left foraminal narrowing. C4-C5: Canal remains patent. Uncovertebral hypertrophy and facet arthropathy contributes to moderate LEFT and mild RIGHT neuroforaminal narrowing. C5-C6: Diffuse disc bulge and bilateral facet and uncovertebral arthropathy contribute to mild canal narrowing, moderate RIGHT and mild LEFT foraminal narrowing. C6-C7: Canal and LEFT neuroforamen remain patent. Moderate RIGHT neuroforaminal narrowing secondary to uncovertebral hypertrophy and facet arthropathy. C7-T1: Canal and LEFT neuroforamen remain patent. Mild RIGHT neuroforaminal narrowing secondary to marginal endplate osteophytes and facet arthropathy. THORACIC: Counting reference: Craniocervical and lumbosacral junctions. For the purposes of this report, L4-5 is considered the level of the iliac crest and assume there are 5 lumbar-type vertebrae. Anatomic variant: None. Alignment: Alignment is anatomic. Cord: The thoracic spinal cord is within normal limits of signal intensity and morphology. No pathologic intradural enhancement. Bone marrow signal/fracture: No evidence of pathologic marrow infiltration. Type I degenerative endplate changes within the T11 superior endplate. No evidence of acute fracture. Prominent Schmorl's node within the T12 superior endplate. Thoracic soft tissues: The paraspinal soft tissues are within normal limits. Canal and foramina: Multilevel degenerative changes including multifocal disc protrusions at T6-7 and T7-8 resulting in up to mild canal narrowing and broad abutment/flattening of the ventral substance without associated signal abnormality. No high-grade spinal canal stenosis. Scattered facet arthropathy resulting in up to moderate to severe bilateral neuroforaminal narrowing at T2-T3. LUMBAR: Counting reference: Craniocervical and lumbosacral junctions. For the purposes of this report, L4-5 is considered the level of the iliac crest and assume there are 5 lumbar-type vertebrae. Anatomic variant: None. Alignment: Alignment is anatomic. Bone marrow signal/fracture: No evidence of pathologic marrow infiltration. No evidence of prior fracture. Conus: The conus terminates at L1 and is within normal limits of morphology and signal. Normal course and caliber of the descending cauda equina nerve roots. No evidence of abnormal intradural enhancement. Paraspinal soft tissues: Paraspinal soft tissues are within normal limits. T12-L1: Canal and foramina are patent. L1-L2: Canal and foramina are patent. RIGHT facet arthropathy. L2-L3: Mild spinal canal narrowing secondary to shallow disc bulge and bilateral ligamentum flavum thickening. Bilateral facet arthropathy without significant neuroforaminal narrowing. L3-L4: Diffuse disc bulge and bilateral facet arthropathy resulting in moderate canal narrowing. Effacement of the bilateral subarticular zones with contact of the bilateral traversing L4 nerve roots without evidence of impingement. Bilateral facet arthropathy resulting in mild to moderate RIGHT and mild LEFT neuroforaminal narrowing. L4-L5: Diffuse disc bulge and bilateral facet arthropathy resulting in moderate spinal canal narrowing. Effacement of the bilateral subarticular zones resulting in displacement of the bilateral traversing L5 nerve roots, possibly partial impingement on the LEFT. Moderate LEFT and mild RIGHT neuroforaminal narrowing.. L5-S1: Canal remains patent. Diffuse Disc bulge and bilateral facet arthropathy result in severe bilateral neuroforaminal narrowing. Sacrum and iliac wings: The visualized sacrum and iliac wings are within normal limits. The presacral soft tissues are normal in appearance. IMPRESSION IMPRESSION: Multilevel cervical spondylosis with up to moderate to severe spinal canal and severe neuroforaminal narrowing at C3-4 resulting in RIGHT hemicord compression without signal abnormality. Minimal thoracic spondylosis without high-grade spinal canal stenosis, although there are focal disc bulges at T6-T8 resulting in focal flattening of the ventral cord substance at these levels. No associated cord signal abnormality. Multilevel variable up to severe bilateral neuroforaminal narrowing at T2-T3. Multilevel lumbar spondylosis with up to moderate spinal canal narrowing at L3-L5 and multifocal nerve root contacts/displacement, as detailed. Multilevel variable up to severe neuroforaminal narrowing at L5-S1. Cervical Anatomic Variant: None. Assume 7 cervical vertebrae with counting from the craniocervical junction. Anatomic Thoracic/Lumbar Variant: None. L4-5 is considered the level of the iliac crest and assume there are 5 lumbar-type vertebrae. URGENT RESULTS Acuity: Urgent Communication: Communicated with Tariq Torres MD on 07/01/2025 5:08 PM via verbal communication. --END OF FINDING-- Mines Safety Engineer: EB Transcribe Date/Time: Jul 01 2025 3:48P Dictated by : ZAIRA PEDROZA MD This examination was interpreted and the report reviewed and electronically signed by: TALYA YOO MD on Jul 01 2025 5:12PM EST Authorizing ProviderResult TypeResult StatusAchilles Bebos MDMRI-PAMAFinal Result * MRI CERVICAL SPINE WO/W IVCON (07/01/2025 3:48 PM EST)Anatomical Region LateralityModalityC-spineMagnetic ResonanceSpecimen (Source)Anatomical Location / LateralityCollection Method / VolumeCollection TimeReceived Time 07/01/2025 3:47 PM EST Impressions 07/01/2025 5:14 PM EST IMPRESSION: Multilevel cervical spondylosis with up to moderate to severe spinal canal and severe neuroforaminal narrowing at C3-4 resulting in RIGHT hemicord compression without signal abnormality. Minimal thoracic spondylosis without high-grade spinal canal stenosis, although there are focal disc bulges at T6-T8 resulting in focal flattening of the ventral cord substance at these levels. ??No associated cord signal abnormality. ??Multilevel variable up to severe bilateral neuroforaminal narrowing at T2-T3. Multilevel lumbar spondylosis with up to moderate spinal canal narrowing at L3-L5 and multifocal nerve root contacts/displacement, as detailed. ?? Multilevel variable up to severe neuroforaminal narrowing at L5-S1. Cervical Anatomic Variant: ??None. ??Assume 7 cervical vertebrae with counting from the craniocervical junction. Anatomic Thoracic/Lumbar Variant: None. ??L4-5 is considered the level of the iliac crest and assume there are 5 lumbar-type vertebrae. URGENT RESULTS Acuity: Urgent Communication: Communicated with Tariq Torres MD on ??07/01/2025 5:08 PM ??via verbal communication. --END OF FINDING-- Mines Safety Engineer: PSCB ?? Transcribe Date/Time: Jul 01 2025 ??3:48P Dictated by : ZAIRA PEDROZA MD This examination was interpreted and the report reviewed and electronically signed by: TALYA YOO MD on Jul 01 2025 ??5:12PM ??EST Narrative 07/01/2025 5:14 PM EST * * *Final Report* * * DATE OF EXAM: Jul 01 2025 ??3:47PM ?? Q[facility] ?? [id number] ??- ??MRI CERVICAL SPINE WO/W IVCON ??/ PROCEDURE REASON: saddle anesthesia ? * * * * Physician Interpretation * * * * EXAMINATION: ??MRI CERVICAL SPINE WO/W IVCON, MRI THORACIC SPINE WO/W IVCON, MRI LUMBAR SPINE WO/W IVCON CLINICAL HISTORY: ??Evaluated at outpatient colorectal surgery appointment for worsening rectal pain, pressure, and severe constipation. ??Refer to the ER for chronic abdominal pain with worsening symptoms over the past 2 weeks. ??Provided indication Saddle anesthesia . TECHNIQUE: Routine cervical, thoracic, and lumbosacral spine MR protocol without gadolinium. ??MQ: [id number] COMPARISON: None available. RESULT: Localizer images: ??Right upper pole T2 hyperintense renal cyst. ??No dilated bowel within the [id number]. CERVICAL: Counting reference: ??Craniocervical junction. ?? Anatomic Variants: ??None. Alignment: ?? Straightening of the normal cervical lordosis. Craniocervical junction: ?Craniocervical junction is normal. Cord: ??The cervical spinal cord is within normal limits of signal intensity and morphology. ??No pathologic intradural enhancement. Bone marrow signal/fracture: ?No evidence of pathologic marrow infiltration. ??No evidence of prior fracture. Cervical soft tissues: ?The paraspinal soft tissues are within normal limits. C2-C3: Broad-based disc bulge eccentric to the RIGHT resulting in mild canal narrowing. ??Bilateral foramina are patent. C3-C4: Posterior disc osteophyte complex eccentric to the RIGHT with bilateral ligamentum flavum thickening resulting in moderate to severe spinal canal narrowing asymmetric to the RIGHT with associated cord compression/flattening. ??No clear evidence of intramedullary signal abnormality. ??Right asymmetric disc bulge and bulky right facet and uncovertebral arthropathy contribute to severe right foraminal narrowing. Bulky left facet and uncovertebral arthropathy contribute to severe left foraminal narrowing. C4-C5: Canal remains patent. ??Uncovertebral hypertrophy and facet arthropathy contributes to moderate LEFT and mild RIGHT neuroforaminal narrowing. C5-C6: Diffuse disc bulge and bilateral facet and uncovertebral arthropathy contribute to mild canal narrowing, moderate RIGHT and mild LEFT foraminal narrowing. C6-C7: Canal and LEFT neuroforamen remain patent. ??Moderate RIGHT neuroforaminal narrowing secondary to uncovertebral hypertrophy and facet arthropathy. C7-T1: Canal and LEFT neuroforamen remain patent. ??Mild RIGHT neuroforaminal narrowing secondary to marginal endplate osteophytes and facet arthropathy. THORACIC: Counting reference: ??Craniocervical and lumbosacral junctions. ??For the purposes of this report, ??L4-5 is considered the level of the iliac crest and assume there are 5 lumbar-type vertebrae. ??Anatomic variant: ??None. Alignment: ?? Alignment is anatomic. Cord: ??The thoracic spinal cord is within normal limits of signal intensity and morphology. ??No pathologic intradural enhancement. Bone marrow signal/fracture: ?No evidence of pathologic marrow infiltration. ??Type I degenerative endplate changes within the T11 superior endplate. ??No evidence of acute fracture. ??Prominent Schmorl's node within the T12 superior endplate. Thoracic soft tissues: ?The paraspinal soft tissues are within normal limits. Canal and foramina: ?? Multilevel degenerative changes including multifocal disc protrusions at T6-7 and T7-8 resulting in up to mild canal narrowing and broad abutment/flattening of the ventral substance without associated signal abnormality. ??No high-grade spinal canal stenosis. ??Scattered facet arthropathy resulting in up to moderate to severe bilateral neuroforaminal narrowing at T2-T3. LUMBAR: Counting reference: ??Craniocervical and lumbosacral junctions. ??For the purposes of this report, ??L4-5 is considered the level of the iliac crest and assume there are 5 lumbar-type vertebrae. ??Anatomic variant: ??None. Alignment: ?? Alignment is anatomic. Bone marrow signal/fracture: ?? No evidence of pathologic marrow infiltration. ??No evidence of prior fracture. Conus: ?The conus terminates at L1 and is within normal limits of morphology and signal. ??Normal course and caliber of the descending cauda equina nerve roots. No evidence of abnormal intradural enhancement. Paraspinal soft tissues: ?Paraspinal soft tissues are within normal limits. T12-L1: ??Canal and foramina are patent. L1-L2: ?Canal and foramina are patent. ??RIGHT facet arthropathy. L2-L3: ?Mild spinal canal narrowing secondary to shallow disc bulge and bilateral ligamentum flavum thickening. ??Bilateral facet arthropathy without significant neuroforaminal narrowing. L3-L4: ?Diffuse disc bulge and bilateral facet arthropathy resulting in moderate canal narrowing. ??Effacement of the bilateral subarticular zones with contact of the bilateral traversing L4 nerve roots without evidence of impingement. ??Bilateral facet arthropathy resulting in mild to moderate RIGHT and mild LEFT neuroforaminal narrowing. L4-L5: ?Diffuse disc bulge and bilateral facet arthropathy resulting in moderate spinal canal narrowing. ??Effacement of the bilateral subarticular zones resulting in displacement of the bilateral traversing L5 nerve roots, possibly partial impingement on the LEFT. ??Moderate LEFT and mild RIGHT neuroforaminal narrowing.. L5-S1: ?Canal remains patent. ??Diffuse Disc bulge and bilateral facet arthropathy result in severe bilateral neuroforaminal narrowing. Sacrum and iliac wings: ?? The visualized sacrum and iliac wings are within normal limits. ??The presacral soft tissues are normal in appearance. Procedure Note Provider, [facility] - 07/01/2025 * * *Final Report* * * DATE OF EXAM: Jul 01 2025 3:47PM [facility] 0298 - MRI CERVICAL SPINE WO/W IVCON / PROCEDURE REASON: saddle anesthesia * * * * Physician Interpretation * * * * EXAMINATION: MRI CERVICAL SPINE WO/W IVCON, MRI THORACIC SPINE WO/W IVCON, MRI LUMBAR SPINE WO/W IVCON CLINICAL HISTORY: Evaluated at outpatient colorectal surgery appointment for worsening rectal pain, pressure, and severe constipation. Refer to the ER for chronic abdominal pain with worsening symptoms over the past 2 weeks. Provided indication Saddle anesthesia . TECHNIQUE: Routine cervical, thoracic, and lumbosacral spine MR protocol without gadolinium. MQ: [id number]_3 COMPARISON: None available. RESULT: Localizer images: Right upper pole T2 hyperintense renal cyst. No dilated bowel within the vzipw-co-eoeu. CERVICAL: Counting reference: Craniocervical junction. Anatomic Variants:None. Alignment: Straightening of the normal cervical lordosis. Craniocervical junction: Craniocervical junction is normal. Cord: The cervical spinal cord is within normal limits of signal intensity and morphology. No pathologic intradural enhancement. Bone marrow signal/fracture: No evidence of pathologic marrow infiltration. No evidence of prior fracture. Cervical soft tissues: The paraspinal soft tissues are within normal limits. C2-C3: Broad-based disc bulge eccentric to the RIGHT resulting in mild canal narrowing. Bilateral foramina are patent. C3-C4: Posterior disc osteophyte complex eccentric to the RIGHT with bilateral ligamentum flavum thickening resulting in moderate to severe spinal canal narrowing asymmetric to the RIGHT with associated cord compression/flattening. No clear evidence of intramedullary signal abnormality. Right asymmetric disc bulge and bulky right facet and uncovertebral arthropathy contribute to severe right foraminal narrowing. Bulky left facet and uncovertebral arthropathy contribute to severe left foraminal narrowing. C4-C5: Canal remains patent. Uncovertebral hypertrophy and facet arthropathy contributes to moderate LEFT and mild RIGHT neuroforaminal narrowing. C5-C6: Diffuse disc bulge and bilateral facet and uncovertebral arthropathy contribute to mild canal narrowing, moderate RIGHT and mild LEFT foraminal narrowing. C6-C7: Canal and LEFT neuroforamen remain patent. Moderate RIGHT neuroforaminal narrowing secondary to uncovertebral hypertrophy and facet arthropathy. C7-T1: Canal and LEFT neuroforamen remain patent. Mild RIGHT neuroforaminal narrowing secondary to marginal endplate osteophytes and facet arthropathy. THORACIC: Counting reference: Craniocervical and lumbosacral junctions. For the purposes of this report, L4-5 is considered the level of the iliac crest and assume there are 5 lumbar-type vertebrae. Anatomic variant: None. Alignment: Alignment is anatomic. Cord: The thoracic spinal cord is within normal limits of signal intensity and morphology. No pathologic intradural enhancement. Bone marrow signal/fracture: No evidence of pathologic marrow infiltration. Type I degenerative endplate changes within the T11 superior endplate. No evidence of acute fracture. Prominent Schmorl's node within the T12 superior endplate. Thoracic soft tissues: The paraspinal soft tissues are within normal limits. Canal and foramina: Multilevel degenerative changes including multifocal disc protrusions at T6-7 and T7-8 resulting in up to mild canal narrowing and broad abutment/flattening of the ventral substance without associated signal abnormality. No high-grade spinal canal stenosis. Scattered facet arthropathy resulting in up to moderate to severe bilateral neuroforaminal narrowing at T2-T3. LUMBAR: Counting reference: Craniocervical and lumbosacral junctions. For the purposes of this report, L4-5 is considered the level of the iliac crest and assume there are 5 lumbar-type vertebrae. Anatomic variant: None. Alignment: Alignment is anatomic. Bone marrow signal/fracture: No evidence of pathologic marrow infiltration. No evidence of prior fracture. Conus: The conus terminates at L1 and is within normal limits of morphology and signal. Normal course and caliber of the descending cauda equina nerve roots. No evidence of abnormal intradural enhancement. Paraspinal soft tissues: Paraspinal soft tissues are within normal limits. T12-L1: Canal and foramina are patent. L1-L2: Canal and foramina are patent. RIGHT facet arthropathy. L2-L3: Mild spinal canal narrowing secondary to shallow disc bulge and bilateral ligamentum flavum thickening. Bilateral facet arthropathy without significant neuroforaminal narrowing. L3-L4: Diffuse disc bulge and bilateral facet arthropathy resulting in moderate canal narrowing. Effacement of the bilateral subarticular zones with contact of the bilateral traversing L4 nerve roots without evidence of impingement. Bilateral facet arthropathy resulting in mild to moderate RIGHT and mild LEFT neuroforaminal narrowing. L4-L5: Diffuse disc bulge and bilateral facet arthropathy resulting in moderate spinal canal narrowing. Effacement of the bilateral subarticular zones resulting in displacement of the bilateral traversing L5 nerve roots, possibly partial impingement on the LEFT. Moderate LEFT and mild RIGHT neuroforaminal narrowing.. L5-S1: Canal remains patent. Diffuse Disc bulge and bilateral facet arthropathy result in severe bilateral neuroforaminal narrowing. Sacrum and iliac wings: The visualized sacrum and iliac wings are within normal limits. The presacral soft tissues are normal in appearance. IMPRESSION IMPRESSION: Multilevel cervical spondylosis with up to moderate to severe spinal canal and severe neuroforaminal narrowing at C3-4 resulting in RIGHT hemicord compression without signal abnormality. Minimal thoracic spondylosis without high-grade spinal canal stenosis, although there are focal disc bulges at T6-T8 resulting in focal flattening of the ventral cord substance at these levels. No associated cord signal abnormality. Multilevel variable up to severe bilateral neuroforaminal narrowing at T2-T3. Multilevel lumbar spondylosis with up to moderate spinal canal narrowing at L3-L5 and multifocal nerve root contacts/displacement, as detailed. Multilevel variable up to severe neuroforaminal narrowing at L5-S1. Cervical Anatomic Variant: None. Assume 7 cervical vertebrae with counting from the craniocervical junction. Anatomic Thoracic/Lumbar Variant: None. L4-5 is considered the level of the iliac crest and assume there are 5 lumbar-type vertebrae. URGENT RESULTS Acuity: Urgent Communication: Communicated with Tariq Torres MD on 07/01/2025 5:08 PM via verbal communication. --END OF FINDING-- Mines Safety Engineer: EB Transcribe Date/Time: Jul 01 2025 3:48P Dictated by : ZAIRA PEDROZA MD This examination was interpreted and the report reviewed and electronically signed by: TALYA YOO MD on Jul 01 2025 5:12PM EST Authorizing ProviderResult TypeResult StatusAchilles Bebos MDMRI-PAMAFinal Result * (ABNORMAL) HIGH SENSITIVITY TROPONIN T (INITIAL) (07/01/2025 1:32 PM EST) ComponentValueRef RangeTest MethodAnalysis TimePerformed AtPathologist SignatureTNT High Hsjyodgsjcc73(H)<12 ng/L108/31/2024 2:08 PM ESTUN[facility] MAIN LABSpecimen (Source)Anatomical Location / LateralityCollection Method / VolumeCollection TimeReceived TimeBloodBLOOD SPECIMEN / Unknown Venipuncture / Obkolqe0607/01/2025 1:32 PM EST07/01/2025 1:48 PM EST Narrative Authorizing ProviderResult TypeResult StatusAchilles Lake MDLABORATORYFinal ResultPerforming OrganizationAddressCity/State/ZIP CodePhone Number [facility] [address] [place] [address], * MAGNESIUM (07/01/2025 12:43 PM EST)ComponentValueRef RangeTest MethodAnalysis TimePerformed AtPathologist SignatureMagnesium1.91.7 - 2.3 mg/dL07/01/2025 1:16 PM [facility] LABSpecimen (Source)Anatomical Location / LateralityCollection Method / VolumeCollection TimeReceived TimeBloodBLOOD SPECIMEN / UnknownVenipuncture / Ohufcri8107/01/2025 12:43 PM EST07/01/2025 12:49 PM EST Narrative Authorizing ProviderResult TypeResult StatusAchillfrederic Rosasjoaquim COLABORATORYFinal ResultPerforming OrganizationAddressCity/State/ZIP CodePhone Number [facility] [address] [place] [address], * (ABNORMAL) COMPREHENSIVE METABOLIC PANEL (07/01/2025 12:43 PM EST)Component ValueRef RangeTest MethodAnalysis TimePerformed AtPathologist Signature Protein, Total8.3(H)6.3 - 8.0 g/dL07/01/2025 1:16 PM [facility] LABAlbumin5.0(H)3.9 - 4.9 g/dL07/01/2025 1:16 PM [facility] Calcium, Total10.3(H)8.5 - 10.2 mg/dL07/01/2025 1:16 PM [facility] LABBilirubin, Total0.80.2 - 1.3 mg/dL07/01/2025 1:16 PM [facility] LABAlkaline Gowmijsgkeb343(H)38 - 113 U/L108/31/2024 1:16 PM EST [facility] YYTJIW6951 - 40 U/L108/31/2024 1:16 PM [facility] LABComment:Results may be falsely increased due to interference from hemolysis. Suggest reorder as clinically indicated.NSB6230 - 54 U/L 07/01/2025 1:16 PM [facility] LABComment:Results may be falsely increased due to interference from hemolysis. Suggest reorder as clinically i ndicated.Jxqhilb5825 - 99 mg/dL07/01/2025 1:16 PM [facility] Comment: The [place] Diabetes Association (ADA) provides guidance for cutoff values for fasting glucose andrandom glucose. The ADA defines fasting as no caloric intake for at least 8 hours. Fasting plasma glucose results between 100 to 125 mg/dL indicate increased risk for diabetes (prediabetes). Fasting plasma glucose results greater than or equal to 126 mg/dL meet the criteria for diagnosis of diabetes. In the absence of unequivocal hyperglycemia, results should be confirmed by repeat testing. In a patient with classic symptoms of hyperglycemia or hyperglycemic crisis, random plasma glucose results greater than or equal to 200 mg/dL meet the criteria for diagnosis of diabetes. Reference: Standards of Medical Care in Diabetes 2016, [place] Diabetes Association. Diabetes Care. 2016.39(Suppl 1). BMJ361 - 24 mg/dL07/01/2025 1:16 PM [facility] LABCreatinine0.72 (L)0.73 - 1.22 mg/dL07/01/2025 1:16 PM [facility] ZCZGgozaa230201 - 144 mmol/L108/31/2024 1:16 PM [facility] ACQJdgkpwoli33/10/2025 1:16 PM [facility] LABComment:Unable to assay due to interference from hemolysis. Suggest reorder as clinically indicated.Mixijhhg63409 - 107 mmol/L108/31/2024 1:16 PM [facility] VCTWP533(L)22 - 30 mmol/L 07/01/2025 1:16 PM [facility] LABAnion Gap19(H)8 - 15 mmol/L 07/01/2025 1:16 PM [facility] LABEstimated Glomerular Filtration Ivob353>=60 mL/min/1.73m 07/01/2025 1:16 PM [facility] LABComment:Estimated Glomerular Filtration Rate (eGFR) is calculated using the 2020 CKD-EPI creatinine equation. This equation utilizes serum creatinine, sex, and age as parameters. The creatinine assay has traceable calibration to isotope dilution-mass spectrometry. Refer to KDIGO guidelines for clinical interpretation. In patients with unstable renal function, e.g. those with acute kidney injury, the eGFRmay not accurately reflect actual GFR.Specimen (Source)Anatomical Location / LateralityCollection Method / VolumeCollection TimeReceived TimeBloodBLOOD SPECIMEN / UnknownVenipuncture / Bxrquem1007/01/2025 12:43 PM EST07/01/2025 12:49 PM EST Narrative Authorizing ProviderResult TypeResult StatusAchilles Lake CHAVISLABORATORYFinal ResultPerforming OrganizationAddressCity/State/ZIP CodePhone Number [facility] [address] * (ABNORMAL) COMPLETE BLOOD COUNT AND DIFFERENTIAL (07/01/2025 12:43 PM EST) ComponentValueRef RangeTest MethodAnalysis TimePerformed AtPathologist SignatureWBC8.343.70 - 11.00 k/uL07/01/2025 12:57 PM [facility] LABRBC4.744.20 - 6.00 m/uL07/01/2025 12:57 PM [facility] LAB Iobsusefaq20.413.0 - 17.0 g/dL07/01/2025 12:57 PM [facility] Ktlvvntrpb61.639.0 - 51.0 %07/01/2025 12:57 PM [facility] LABMCV 89.980.0 - 100.0 fL07/01/2025 12:57 PM [facility] USEXVP19.526.0 - 34.0 pg07/01/2025 12:57 PM [facility] WGNLXRX52.2(H)30.5 - 36.0 g/dL07/01/2025 12:57 PM [facility] LABRDW-CV11.611.5 - 15.0 %07/01/2025 12:57 PM [facility] LABPlatelet Aznek310124 - 400 k/uL07/01/2025 12:57 PM [facility] IJDMZV31.69.0 - 12.7 fL 07/01/2025 12:57 PM [facility] LABNeutrophils %58.7%07/01/2025 12:57 PM [facility] LABAbs Neut4.901.45 - 7.50 k/uL07/01/2025 12:57 PM [facility] LABLymphocytes %26.9%07/01/2025 12:57 PM [facility] LABAbs Lymph2.241.00 - 4.00 k/uL07/01/2025 12:57 PM [facility] LABMonocytes %9.2%07/01/2025 12:57 PM [facility] LABAbs Mono0.77<0.87 k/uL07/01/2025 12:57 PM [facility] LABEosinophils %4.0%07/01/2025 12:57 PM [facility] LABAbs Eosin0.33<0.46 k/uL07/01/2025 12:57 PM [facility] LABBasophils % 0.7%07/01/2025 12:57 PM [facility] LABAbs Baso0.06<0.11 k/uL 07/01/2025 12:57 PM [facility] LABImmature Granulocytes %0.5% 07/01/2025 12:57 PM [facility] LABAbs Immature Gran0.04<0.10 k/uL07/01/2025 12:57 PM [facility] LABNRBC0.0/100 WBC07/01/2025 12:57 PM [facility] LABAbsolute nRBC<0.01<0.01 k/uL07/01/2025 12:57 PM [facility] LABDiff GnlrJzmq77/10/2025 12:57 PM [facility] LABSpecimen (Source)Anatomical Location / Laterality Collection Method / VolumeCollection TimeReceived TimeBloodBLOOD SPECIMEN / UnknownVenipuncture / Jodwhtq2707/01/2025 12:43 PM EST07/01/2025 12:49 PM EST [facility] Authorizing ProviderResult TypeResult StatusAchilles Lake CHAVISLABORATORYFinal ResultPerforming OrganizationAddressCity/State/ZIP CodePhone Number [facility] [address] [place] [address], * PT ED PATIENT INFORMATION (06/28/2025)Specimen (Source)Anatomical Location / LateralityCollection Method / VolumeCollection TimeReceived Time06/28/2025 Narrative NILO - 06/28/2025 Provider BENJI barker patient HARLAN ARNOLD started their Nilo on 06-28-2025 and completed it on 06-28-2025 Nilo program: PATIENT SAFETY INSTRUCTIONS FOR HEALTHCARE SETTINGS Authorizing ProviderResult TypeResult StatusJessica Benji PA-CEMMIFinal ResultPerforming OrganizationAddressCity/State/ZIP CodePhone Number NILO from Last 3 Months Insurance * Guarantor: Harlan Arnold SAccjavier TypeRelation to PatientDate of BirthPhone Billing AddressPersonal/PuknohVwqt08/14/1971 [address] [place] [address] Care Teams Team MemberRelationshipSpecialtyStart DateEnd Tyson Fonseca MD PCP - GeneralFamily Medicine11/11/15 Vivian Brady MD [address] [address] Gastroenterology01/16/25 Vivian Brady MD [address] [address] IspvuawfmXisnxwcfwvmpolnf18/5/25
--- OUTSIDE RECORDS SUMMARY | 2025-08-12 10:51 | XMS_ITS | Clinical Summary ---
Author Organization [facility] Healthcare Address [address] [place] [address] Care Team Providers Care Locker Room Clerk Name Role Phone Unavailable Primary Care Provider Unavailabl e Social History Tobacco UseTypesPacks/DayYears UsedDateSmoking Tobacco: Never AssessedSex and Gender InformationValueDate RecordedSex Assigned at BirthNot on fileLegal Sex Male11/03/2022 7:16 PM EDTGender IdentityNot on fileSexual OrientationNot on file Last Filed Vital Signs Vital SignReadingTime TakenCommentsBlood Pressure--Pulse--Temperature-- Respiratory Rate--Oxygen Saturation--Inhaled Oxygen Concentration--Cvkigm18.8 kg (220 lb)07/29/2020 12:00 PM GVYEhjtve174.7 cm (5' 8 )07/29/2020 12:00 PM ESTBody Mass Index33.45109/29/2019 12:00 PM EST Plan of Treatment Not on file
--- OUTSIDE RECORDS SUMMARY | 2025-08-12 10:51 | XMS_ITS | Encounter Summary ---
Demographics Address [address] [facility] [address] [place] [id number] Home Phone Mobile Phone Email Address Email Address Preferred Language ENG Marital Status Single Mu-Ism Affiliation Unknown Race White Ethnic Group or Author Organization [facility] Address [address] [place] [address] Care Team Providers Care Spinner Cap Frame Name Role Phone Tyson Fonseca MD Primary Care Provider [phone] Vivian Brady MD Unavailable [phone] Vivian Brady MD Unavailable [phone] Source Comments In the event this information is protected by the Federal Confidentiality of Alcohol and Drug AbusePatient Records regulations: The Federal rules restrict any use of the information to criminally investigate or prosecute any alcohol or drug abuse patient.[facility] Reason for Visit * ReasonCommentsPatient Update Encounter Details DateTypeDepartmentCare Team (Latest Contact Info)Iivytmmwwox65/22/2025Telephone Colorectal Surgery [address] [id number] Lydia Drake PA-C [address] [place], [place] [phone] Patient Update Social History Tobacco UseTypesPacks/DayYears UsedDateSmoking Tobacco: NeverSmokeless Tobacco: NeverArea Deprivation IndexAnswerDate RecordedNational Score (1-100), lower number is lower vhhg777502/28/2025State Score (1-10), lower number is lower risk9 02/28/2025Data from: https://www.neighborhoodatlas.medicine.[facility].edu/. Last address used for oftnehkvdkz[address]/28/2025Sex and Gender InformationValueDate RecordedSex Assigned at SwtxlMnmp54/17/2025 4:03 PM EDT Legal CzsAkrc6711/11/2015 1:48 PM EDTGender TyarsttjDjzx84/17/2025 4:03 PM EDT Sexual ZoaigjfzbxpEoisdvgr66/17/2025 4:03 PM EDTdocumented as of this encounter Miscellaneous Notes * Telephone Encounter - Danna Nugent - 08/12/2025 10:30 AM EST Chai Russell [phone], experiencing constipation so bad its causing him to pass out. He's scheduled to have sitz marker test this week. documented in this encounter Plan of Treatment Not on file documented as of this encounter Visit Diagnoses Not on filedocumented in this encounter Care Teams Team MemberRelationshipSpecialtyStart DateEnd Date Tyson Fonseca MD PCP - GeneralFamily Medicine11/11/15 Vivian Brady MD [address] [address] Gastroenterology01/16/25 Vivian Brady MD [address] [address] CynyjjvdjInzwvmyjuezcnbom24/5/25documented as of this encounter
== END 2025-08-12 10:49 | disposition home or self-care (01) ==
LOC: RAD 10:48
PROVIDERS: PCP Family Medicine
DX: K59.00 Constipation, unspecified (principal)
CPT/HCPCS: 74018

== ENCOUNTER 2025-08-14 10:59 | Outpatient (OUT) | payer OTHER, SELFPAY ==
--- OUTSIDE RECORDS SUMMARY | 2025-08-11 07:30 | XMS_ITS | Encounter Summary ---
Author Organization [facility] [address] [facility] tem Address [id number] [address] [place] [address] Care Team Providers Care Model And Mold Maker Name Role Phone Cisco Blanc DO Primary Care Provider + [phone] Reason for Referral * Consultation (Routine) - Pending ReviewSpecialtyDiagnoses / ProceduresReferred By ContactReferred To ContactPlastic & Reconstructive Surgery Diagnoses Closed fracture of right maxillary sinus, initial encounter ([facility]) Closed fracture of right orbital floor, initial encounter ([facility]) Closed fracture of nasal bone, initial encounter Chiquita Steele DO [address] [place] [address] Phone: tel: fax: Dmitry Martinez MD [address] [place] [address] Phone: tel: fax: Referral IDStatusReasonStart DateExpiration DateVisits RequestedVisits [id number] Review Specialty Services Required Reason for Visit * ReasonCommentsSyncope Encounter Details DateTypeDepartmentCare Team (Latest Contact Info)Kkxrnqmwnuc68/21/2025 7:30 AM EST - 08/11/2025 12:24 PM ESTEmerSamaritan [facility] [address] [place] [id number] Tere Pantoja MD [address] [id number] Vasovagal syncope (Primary Dx); Closed fracture of right maxillary sinus, initial encounter ([facility]); Closed fracture of right orbital floor, initial encounter ([facility]); Closed fracture of nasal bone, initial encounter Discharge Disposition: Home Social History Tobacco UseTypesPacks/DayYears UsedDateSmoking Tobacco: PpmhzbDzqlebgwkf466 07/23/1985 - 12/20/2018Passive Smoke Exposure: PastSmokeless Tobacco: Never Comments:vape, today Alcohol UseStandard Drinks/WeekCommentsYes0 (1 standard drink = 0.6 oz pure alcohol)OccasionalAHC UtilitiesAnswerDate RecordedIn the past 12 months has the [employer], gas, oil, or water [place] threatened to shut off services in your home?Yes09/11/2024Social Connection and Isolation PanelAnswerDate RecordedIn a typical week, how many times do you talk on the phone with family, friends, or neighbors?Twice a week08/01/2022How often do you get together with friends or relatives?Once a week08/01/2022How often do you attend latter-day or yazidi services?Never08/01/2022ctive Member of Clubs or OrganizationsNot on file 08/01/2022How often do you attend meetings of the clubs or organizations you belong to?Never08/01/2022re you , , , , never , or living with a partner?Never cpnztyf9208/01/2022UDIT-CAnswerDate RecordedQ1: How often do you have a drink containing alcohol?Monthly or less 09/11/2024Q2: How many drinks containing alcohol do you have on a typical day when you are drinking?Patient does not drink09/11/2024Q3: How often do you have six or more drinks on one occasion?Less than ehjffss2709/11/2024Overall Financial Resource Strain (CARDIA)AnswerDate RecordedHow hard is it for you to pay for the very basics like food, housing, medical care, and heating?Very hard12/06/2023 PHQ-2AnswerDate RecordedTotal Dvatj890912/10/2024Fin[facility] [place] of Occup[facility] Health - Occupational Stress QuestionnaireAnswerDate [...] of a household?Yes12/06/2023hildcareAnswerDate RecordedDo problems getting child and family counselor make 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 you to work [...] InformationValueDate RecordedSex Assigned at BirthNot on fileLegal KifXxbo0803/27/2015 11:30 AM EDTGender IdentityNot on fileSexual OrientationNot on filedocumented as of this encounter Last Filed Vital Signs Vital SignReadingTime TakenCommentsBlood Qlvkapok010/6715208/11/2025 12:03 PM EST Kmjud64251/21/2025 12:03 PM FEGUpnvojewywi22.4 ??C (97.5 ??F)08/11/2025 7:41 AM ESTRespiratory Amxj052908/11/2025 12:03 PM ESTOxygen Xhdcqsyflv80%08/11/2025 12:03 PM ESTInhaled Oxygen Concentration--Dffwsb48.9 kg (174 lb)08/11/2025 7:41 AM EST Gbgohp581.7 cm (5' 8 )08/11/2025 7:41 AM ESTBody Mass Index26.4608/11/2025 7:41 AM ESTdocumented in this encounter Functional Status * SafetyQuestionAnswerDate of AssessmentAuthorCall Vera Within ReachYes 08/11/2025 10:00 AM Ty Boston RNBed In Lowest PositionYes 08/11/2025 10:00 AM yT Boston RNBed Wheels PnodtkFms76/21/2025 10:00 AM Ty Boston RN * ED Hunger ScreeningQuestionAnswerDate of AssessmentAuthorWithin the past 12 months the food we bought just didn't last and we didn't have money to get more.Never True08/11/2025 7:46 AM Tg Clfiford RNWithin the past 12 months we worried whether our food would run out before we got money to buy more.Never True08/11/2025 7:46 AM Tg Clifford RN * BEE (kcal)AnswerDate of RztpobowfjQrucpo087218/21/2025 7:41 AM Tg Clifford RN * Pain AssessmentQuestionAnswerDate of AssessmentAuthorPain Intervention(s)None 08/11/2025 7:41 AM Tg Clifford RNPain VyigvvwkGkwl31/21/2025 12:03 PM Geeta Birmingham RNPain DescriptorsOther (Comment)08/11/2025 7:41 AM Tg Barcenas RNPain DurationConstant/xrfsmzwcje37/21/2025 7:41 AM Tg Barcenas RNPatient's Stated Acceptable Pain LevelNo pain08/11/2025 7:41 AM Tg Clifford RNResponse to InterventionsPain unchanged 08/11/2025 7:41 AM Tg Clifford RNPain TypeAcute pain08/11/2025 12:03 PM Geeta Birmingham RNClinical ProgressionNot hwjqfto5208/11/2025 7:41 AM Tg Barcenas RNPain Assessment0-10110/12/2024 12:03 PM Geeta Birmingham RNPain Tjukf00610/12/2024 12:03 PM Geeta Birmingham RNObserved Behavior Rgovyexl10/21/2025 7:41 AM Tg Clifford RN * [place]ior Coma ScaleQuestionAnswerDate of AssessmentAuthorEye Rpydufb819/21/2025 7:51 AM Ty Boston RNBe Motor Cpsqmuel288/21/2025 7:51 AM EST Ty Espinoza RNBest Verbal Ehukygxk958/21/2025 7:51 AM Ty Boston RNGlasgow Coma Scale Uyvil0377/21/2025 7:51 AM Ty Boston RN * Patient ObservationQuestionAnswerDate of GdqriysswaVabqorBimlss3291/21/2025 7:41 AM Tg Clifford RNWeight2784110/12/2024 7:41 AM Tg Clifford RN * Musculoskeletal DetailsQuestionAnswerDate of AssessmentAuthorR ShoulderLimited movement;Injury/inxrfr4308/11/2025 7:51 AM Ty Boston RNLower Back Limited movement;Injury/otahxc7708/11/2025 7:51 AM Ty Boston RN * BSA (Calculated - sq m)AnswerDate of AssessmentAuthor1.9508/11/2025 7:41 AM Tg Clifford RN * BMI (Calculated)AnswerDate of QgggsuyaplQpfcwt69.512 7:41 AM Tg Barcenas RN * Height [...] Patient Alert, Oriented and Able to Follow SwmguqdoSdm99/21/2025 7:46 AM Tg Barcenas RNInterventionsSiderails Up x 2;Call Light Within Reach;Assist with Ambulation;Bed in Low Jiixqxpu03/21/2025 7:46 AM Tg Barcenas RNFall Prevention ScreenPatient has Fallen in the Past 3 Months Due to Tripping, Slipping or Dtrkompaa09/21/2025 7:46 AM Tg Clifford RN * Vital SignsQuestionAnswerDate of SczlzqrdinUunlfqWI599/5884908/11/2025 12:03 PM Geeta Birmingham RNTemp97.512 7:41 AM Tg Clifford RNTemp gwsBvby2908/11/2025 7:41 AM Tg Clifford NUEpmsz29649/21/2025 12:03 PM Geeta Birmingham HGZpie0467/21/2025 12:03 PM Geeta Birmingham VERtO258 08/11/2025 12:03 PM Geeta Birmingham RNHeart Rate ChhjzhGuvdyvo83/21/2025 7:41 AM Tg Clifford RNBP LocationLeft arm08/11/2025 7:41 AM Tg Barcenas RNBP NxuibwRjgzyeljz51/21/2025 7:41 AM Tg Clifford RNMAP (mmHg)5207708/11/2025 12:03 PM Geeta Birmingham RNPatient Position Semi-qrxkqqs5308/11/2025 7:41 AM Tg Clifford, DELMIS * Oxygen TherapyQuestionAnswerDate of AssessmentAuthorO2 DeviceNone (Room air) 08/11/2025 7:41 AM Tg Clifford, DELMIS * RespiratoryQuestionAnswerDate of AssessmentAuthorBilateral Breath SoundsClear 08/11/2025 7:51 AM Ty Boston RNRespiratory Pattern Irregular;Labored;Iuhauaijbe90/21/2025 7:51 AM Ty Boston RNChest AssessmentChest expansion iqicfybymel38/21/2025 7:51 AM Ty Boston RNCough IspefupWg19/21/2025 7:51 AM Ty Boston, RN * NeurologicalQuestionAnswerDate [...] (WDL)X110/12/2024 12:04 PM Geeta Birmingham RN * Family/Telephone Lineworker NotifiedQuestionAnswerDate of AssessmentAuthor Family/Telephone Lineworker notified of Emergency Department Admission?Patient fcgiscpx02/21/2025 11:55 AM Geeta Birmingham RN * Weight in (lb) to have BMI = 25AnswerDate of MjnonodwcxIxglhk616. 7:41 AM Tg Clifford RN * [place] Suicide BehaviorQuestionAnswerDate of AssessmentAuthor6. Have you ever done anything, started to do anything, or prepared to do anything to end your life?No08/11/2025 7:45 AM Tg Clifford RN * Suicidal Ideation (Last Month)QuestionAnswerDate of AssessmentAuthor1. In the last month have you wished you were or wished you could go to sleep and not wake up?No08/11/2025 7:45 AM gT Clifford RN2. In the last month have [...] Ty Boston RN * MusculoskeletalQuestionAnswerDate of AssessmentAuthorRUELimited movement;Injury/itlnlf9208/11/2025 7:51 AM Ty Boston RN Musculoskeletal Additional BlffyuudyrnNu07/21/2025 12:04 PM Geeta Birmingham RNMusculoskeletal (WDL)X110/12/2024 12:04 PM Geeta Birmingham RN * Vitals TimerQuestionAnswerDate of AssessmentAuthorRestart Vitals TimerYes 08/11/2025 12:03 PM Geeta Birmingham RNRestart Vitals KcmodElk19/21/2025 12:03 PM Geeta Birmingham RN * Respiratory (WDL)AnswerDate of BjxtofzjrePzpkarZZN48/21/2025 12:02 PM Geeta Schafer RN * TB [...] Clifford RN * Blood Return Present?AnswerDate of ToxhenlvucXqhofpMwy38/21/2025 9:52 AM Alyse Pantoja ARRT * [place] Suicide Risk LevelAnswerDate of AssessmentAutSt. Louis Behavioral [facility] at Suicide Risk 08/11/2025 7:45 AM Tg Clifford RN * SafetyQuestionAnswerDate of AssessmentHCA Florida Pasadena Hospitalospital ID QrkjAj1508/11/2025 10:00 AM Ty Boston RNCall Vera Within VttipKml00/21/2025 10:00 AM Ty Weinberg RNBed In Lowest HikubcwfQcy71/21/2025 10:00 AM Ty Weinberg RNBed Wheels NtbofcMme04/21/2025 10:00 AM Ty Boston RNSide Rails Up (Number) 10:00 AM Ty Boston RN * BEE (kcal)AnswerDate of AkilnrkepeYtrtbl470422/21/2025 7:41 AM Tg Clifford RN * Patient ObservationQuestionAnswerDate of JmkwxgjjliFahoidPeoaqb0975/21/2025 7:41 AM Tg Clifford RNWeight2784110/12/2024 7:41 AM gT Clifford RN * BSA (Calculated - sq m)AnswerDate of AssessmentAuthor1.9512 7:41 AM Tg Clifford RN * BMI (Calculated)AnswerDate of OpvmmfrdfwPpnyaq51.512 7:41 AM Tg Barcenas RN * Height and WeightQuestionAnswerDate of AssessmentAutSelect Medical Special[facility] MethodStated 08/11/2025 7:41 AM Tg Clifford RN * Vital SignsQuestionAnswerDate of EybtdlwkzuHpjlxoNF180/1156808/11/2025 12:03 PM Geeta Birmingham RNTemp97.512 7:41 AM Tg Clifford RNTemp jrwEvdj5008/11/2025 7:41 AM Tg Clifford KBPdfxc33226/21/2025 12:03 PM Geeta Birmingham FCEqxl5663/21/2025 12:03 PM Geeta Birmingham JJPiJ415 08/11/2025 12:03 PM Geeta Birmingham RNHeart Rate BodmgcXtajsqh53/21/2025 7:41 AM Tg Clifford RNBP LocationLeft arm08/11/2025 7:41 AM Tg Barcenas RNBP ByjntbInevzfkex19/21/2025 7:41 AM Tg Clifford RNMAP (mmHg)6396408/11/2025 12:03 PM Geeta Birmingham RNPatipratima Position Semi-zjjvajb8408/11/2025 7:41 AM Tg Clifford RN * Weight in (lb) to have BMI = 25AnswerDate of XdphdksmrnLhnkun661. 7:41 AM Tg Clifford RN documented as of this encounter Mental Status * Pain AssessmentQuestionAnswerEntry DateAuthorPain EnvdccbcKqfw74/21/2025 12:03 PM Geeta Birmingham RNPain DescriptorsOther (Comment)08/11/2025 7:41 AM Tg Barcenas RNPain DurationConstant/secpsclltl72/21/2025 7:41 AM Tg Barcenas RNPatient's Stated Acceptable Pain LevelNo pain08/11/2025 7:41 AM Tg Clifford RNResponse to InterventionsPain unchanged 08/11/2025 7:41 AM Tg Clifford RNPain Assessment0-1012/ 12:03 PM Geeta Birmingham RNPain Ppmvk09510/12/2024 12:03 PM Geeta Birmingham RN Observed PlirtjnxJttqpmsn53/21/2025 7:41 AM Tg Clifford RN * [place] Coma ScaleQuestionAnswerEntry DateAuthorEye Zahiiaw026/21/2025 7:51 AM Ty Boston RNBest Motor Rkmnmhfu464/21/2025 7:51 AM Ty Boston RNBest Verbal Pcjxhukm307/21/2025 7:51 AM Ty Boston RN Lior Coma Scale Cbvca6653/21/2025 7:51 AM Ty Boston RN * Musculoskeletal DetailsQuestionAnswerEntry DateAuthorR ShoulderLimited movement;Injury/datrnx2208/11/2025 7:51 AM Ty Boston RNLower Back Limited movement;Injury/zpmnfh0408/11/2025 7:51 AM Ty Boston RN * Vital SignsQuestionAnswerEntry RwrjIiojtaSU082/3540808/11/2025 12:03 PM Geeta Schafer RNTemp97.512 7:41 AM Tg Clifford RNTemp src Oral08/11/2025 7:41 AM Tg Clifford, CGFbada78149/21/2025 12:03 PM Geeta Schafer TYKbbi1669/21/2025 12:03 PM Geeta Birmingham, XUCjQ555 08/11/2025 12:03 PM Geeta Birmingham RNHeart Rate NdaaisKlxmpje02/21/2025 7:41 AM Tg Clifford RNBP LocationLeft arm08/11/2025 7:41 AM Tg Barcenas RNBP UphrknYoetsyfyg00/21/2025 7:41 AM Tg Clifford, RNMAP (mmHg)9481008/11/2025 12:03 PM Geeta Birmingham RNPatient Position Semi-gnviwjw9208/11/2025 7:41 AM Tg Clifford RN * Oxygen TherapyQuestionAnswerEntry DateAuthorO2 DeviceNone (Room air)08/11/2025 7:41 AM Tg Clifford RN * RespiratoryQuestionAnswerEntry DateAuthorBilateral Breath SoundsClear 08/11/2025 7:51 AM Ty Boston RNRespiratory Pattern Irregular;Labored;Zddnzvsdbs84/21/2025 7:51 AM Ty Boston RNChest AssessmentChest expansion /21/2025 7:51 AM Ty Boston RN * NeurologicalQuestionAnswerEntry DateAuthorNeuro (WDL)WDL110/12/2024 7:51 AM Ty Weinberg RN * HEENTQuestionAnswerEntry DateAuthorR EyeOther (Comment)08/11/2025 12:04 PM Geeta Schafer RN * Skin Color/ConditionQuestionAnswerEntry DateAuthorSkin ZoxdeYksg20/21/2025 7:51 AM Ty Boston RNSkin TempWarm;Dry08/11/2025 7:51 AM Ty Weinberg RN * MusculoskeletalQuestionAnswerEntry DateAuthorRUELimited movement;Injury/trauma 08/11/2025 7:51 AM Ty Boston RNMusculoskeletal Additional JexqesbnougCd79/21/2025 12:04 PM Geeta Birmingham RN documented in [...] to evaluate you and monitor your health senior living. * Attachments The following attachments cannot be sent through Care Everywhere. * Fainting in adults ??? ED discharge instructions (Djiboutian) * Nose fracture (Djiboutian) * Facial fractures (Djiboutian) documented in this encounter Medications at Time [...] fracture of right maxillary sinus, initial encounter ([facility]),Closed fracture of right orbital floor, initial encounter ([facility]), Closed fracture of nasal bone, initial encounterTake [...] from the original note were not included. [facility] Pt Name: Chai Russell Birthdate: [...] foot 02/18/2025 Depression Moderate benzodiazepine use disorder ([facility]) Past Surgical History: Past Surgical History: Procedure Laterality Date APPENDECTOMY COLONOSCOPY N/A 10/17/2019 Performed by Ty Burciaga DO at [facility] COLONOSCOPY DIAGNOSTIC / SCREENING N/A 02/17/2024 Performed by Ty Burciaga DO at [facility] DECOMPRESSION FASCIOTOMY LEG 12/24/2015 Family History: [...] 20 min Stress: Stress Concern Present (08/01/2022) [place] of Occupational Health - Occupational Stress Questionnaire Feeling of Stress : Very much Social Connections: Socially Isolated (08/01/2022) Social Connection and Isolation Panel Frequency of Communication with Friends and Family: Twice a week Frequency of Social Gatherings with Friends and Family: Once a week Attends Rastafari Services: Never Attends Club or Organization Meetings: [...] of 08/12/25 0337 Sun Aug 11, 2025 [id number] On exam, patient I have you states [...] fracture of right maxillary sinus, initial encounter ([facility]) - lateral, anterior and inferior salcedo Closed fracture of right orbital floor, initial encounter ([facility]) Closed fracture of nasal bone, [...] fracture of right maxillary sinus, initial encounter ([facility]) Closed fracture of right orbital floor, initial encounter ([facility]) Closed fracture of nasal bone, initial encounter 1 Occurrences starting 08/11/2025 until 08/11/2026documented as of this encounter Goals GoalPatient Goal TypeAssociated ProblemsRecent ProgressPatient-Stated?Author home with self care Jenny Miguel RN Note: Evaluation of progress towards goal: with support from friends and family, patient needs [facility] D[facility] documented as of this encounter Procedures Procedure NamePriorityDate/TimeAssociated OnwafxevlZygkqmpxHLGABTEDUYY86/21/2025 11:[address] CTA VTQCFJURV18/21/2025 9:[address] FACIAL BONES WO EWCIXHBP57/21/2025 9:[address] CERVICAL SPINE WO HICZENQV21/21/2025 9:[address] BRAIN WO WMARZATC20/21/2025 9:34 AM EST XR CHEST 2 OIBLZVO78/21/2025 9:28 AM EST TROP I, HIGH SENSITIVITY 1 CEGPDLFZ79/21/2025 8:57 AM EST SARS/FLU A+B/RSV BY NAAT/MOLECULAR (M4RT COLLECTION TUBE)STAT110/12/2024 8:00 AM EST TROPONIN I, HIGH SENSITIVITY 0 KAHYQSKQ56/21/2025 7:58 AM EST TROPONIN I, HIGH SENSITIVITY 0 AZXILWIZ32/21/2025 7:58 AM EST LACTATE W/ DXXJQHZGTF39/21/2025 7:58 AM EST THYROID PROFILE INCLUDES TSH XE4VFPZ7508/11/2025 7:58 AM EST CBC WITH AUTO OUMECSJBPJPCBIXP34/21/2025 7:58 AM EST MVJZGGKZ66/21/2025 7:58 AM EST PROTIME & EAVZHBI4508/11/2025 7:58 AM EST D-ABQFFQUBJ12/21/2025 7:58 AM EST ZDTWZSNJGAXLL90/21/2025 7:58 AM EST FUZXLJFHJP00/21/2025 7:58 AM EST KYODYUVUOYG53/21/2025 7:58 AM EST COMPREHENSIVE METABOLIC ZZBSAYBOK23/21/2025 7:58 AM EST ECG 12-KXURCUCT37/21/2025 7:49 AM EST documented in this encounter Results * (ABNORMAL) Lactate (08/11/2025 11:56 AM EST)ComponentValueRef RangeTest Method Analysis TimePerformed AtPathologist SignatureLACTATE2.3(H)0.4 - 2.0 mmol/L 08/11/2025 12:16 PM ESTPROMEDICA ORTHOPAEDIC HOSPITALpecimen (Source) Anatomical Location / LateralityCollection Method / VolumeCollection Time Received TimeBloodVenous blood / UnknownVenipuncture / Qbiccdr1408/11/2025 11:56 AM EST08/11/2025 11:58 AM EST Narrative Authorizing ProviderResult TypeResult StatusMaphilippe NAM BLOOD ORDERABLESFinal ResultPerforming OrganizationAddressCity/State/ZIP CodePhone Number [facility] [address] [place] [address], * CT angiogram chest (08/11/2025 9:51 AM [...] on 08/11/2025 10:08 AM Authorizing ProviderResult TypeResult StatusAtlanticare Regional Medical Center, Mainland Campuscristobal Steele [facility] ORDERABLES Final Result * CT facial [...] SignatureTROPONIN I, HIGH SENSITIVITY2<21 ng/L110/12/2024 9:34 AM [facility] Specimen (Source)Anatomical Location / LateralityCollection Method / Volume Collection TimeReceived TimeBloodVenous blood / UnknownVenipuncture / Unknown 08/11/2025 8:57 AM EST08/11/2025 9:03 AM EST Narrative Authorizing ProviderResult TypeResult StatusTere Pantoja MDLAB BLOOD ORDERABLESFinal ResultPerforming OrganizationAddressCity/State/ZIP CodePhone Number [facility] [address] [place] [address], * SARS/FLU A+B/RSV by NAAT/Molecular (M4RT Collection Tube) (08/11/2025 8:00 AM EST)ComponentValueRef RangeTest MethodAnalysis TimePerformed AtPathologist SignatureFLU A NGOAwwjsjojRgkgjvac40/21/2025 8:46 AM ESTWAYNE HEALTHCARE MAIN CAMPUSFLU B RLTTgcmwafbEtpbwrkv33/21/2025 8:46 AM ESTWAYNE HEALTHCARE MAIN CAMPUSRSV BY ECBCwdjqkthEibunqxq13/21/2025 8:46 AM EST [facility]ARS COV 2 BY PCRNot DetectedNot Detected 08/11/2025 8:46 AM [facility]ITALpecimen (Source) Anatomical Location / LateralityCollection Method / VolumeCollection Time Received TimeSwabNasopharyngeal structure / Bbiljzw2008/11/2025 8:00 AM EST 08/11/2025 8:09 AM EST Narrative [facility] - 08/11/2025 8:46 AM EST The Xpert [...] operators who are performing tests using either Luminate DX or DiscountIF systems and is limited to laboratories that [...] GENERAL ORDERABLESFinal ResultPerforming OrganizationAddressCity/State/ZIP Code Phone Number [facility] [address] [place] [address], [place] * (ABNORMAL) D-Dimer (08/11/2025 7:58 AM EST)ComponentValueRef RangeTest Method Analysis TimePerformed AtPathologist SignatureD IYYQP852(H)1 - 255 ng/mL 08/11/2025 8:11 AM [facility]ITALComment:Results >255 ng/mL DDU: Results may be [...] TimeReceived TimeBloodVenous blood / Unknown Venipuncture / Nnykxnw9208/11/2025 7:58 AM EST08/11/2025 8:00 AM EST Narrative Authorizing ProviderResult TypeResult StatusTere NAM BLOOD ORDERABLESFinal ResultPerforming OrganizationAddressCity/State/[facility] Medical CenterPhone Number [address] [place] [address], [place] * Troponin I, High Sensitivity 0 Hour (08/11/2025 7:58 AM EST)ComponentValueRef RangeTest MethodAnalysis TimePerformed AtPathologist SignatureTROPONIN I, HIGH SENSITIVITY3<21 ng/L110/12/2024 8:29 AM [facility] Specimen (Source)Anatomical Location / LateralityCollection Method / Volume Collection TimeReceived TimeBloodVenous blood / UnknownVenipuncture / Unknown 08/11/2025 7:58 AM EST08/11/2025 8:00 AM EST Narrative Authorizing ProviderResult TypeResult StatusMaphilippe Pantoja MDLAB BLOOD ORDERABLESFinal ResultPerforming OrganizationAddressty/State/[facility] Medical CenterPhone Number [address] [place] [address], [place] * Thyroid profile includes TSH FT4 (08/11/2025 7:58 AM EST)ComponentValueRef RangeTest MethodAnalysis TimePerformed AtPathologist SignatureFREE T40.720.61 - 1.60 ng/dL08/11/2025 8:40 AM [facility]ITALTSH2.29 0.49 - 4.67 uIU/mL08/11/2025 8:40 AM [facility] Specimen (Source)Anatomical Location / LateralityCollection Method / Volume Collection TimeReceived TimeBloodVenous blood / UnknownVenipuncture / Unknown 08/11/2025 7:58 AM EST08/11/2025 8:00 AM EST Narrative Authorizing ProviderResult TypeResult StatusTere Pantoja MDLAB BLOOD ORDERABLESFinal ResultPerforming OrganizationAddressCity/State/[place] [address], [place] * Ethanol (08/11/2025 7:58 AM EST)ComponentValueRef RangeTest MethodAnalysis TimePerformed AtPathologist SignatureETHANOL<0.01<=0.08 g/dL08/11/2025 8:20 AM [facility]ITALComment: This report is intended for use in clinical monitoring or management of patients. Specimen (Source)Anatomical Location / LateralityCollection Method / Volume Collection TimeReceived TimeBloodVenous blood / UnknownVenipuncture / Unknown 08/11/2025 7:58 AM EST08/11/2025 8:00 AM EST Narrative Authorizing ProviderResult TypeResult StatusTere Pantoja MDLAB BLOOD ORDERABLESFinal ResultPerforming OrganizationAddressty/State/ZIP CodePhone Number [address] [address], [place] * Magnesium (08/11/2025 7:58 AM EST)ComponentValueRef RangeTest MethodAnalysis TimePerformed AtPathologist SignatureMAGNESIUM2.21.8 - 2.6 mg/dL08/11/2025 8:20 AM [facility]ITALpecimen (Source)Anatomical Location / LateralityCollection Method / VolumeCollection TimeReceived Time BloodVenous blood / UnknownVenipuncture / Eqguhwq0208/11/2025 7:58 AM EST 08/11/2025 8:00 AM EST Narrative Authorizing ProviderResult TypeResult StatusTere Pantoja MDLAB BLOOD ORDERABLESFinal ResultPerforming OrganizationAddressCity/State/ZIP CodePhone Number [address] [place] [address], [place] * (ABNORMAL) Lipase (08/11/2025 7:58 AM EST)ComponentValueRef RangeTest Method Analysis TimePerformed AtPathologist HmkzcddzkYQNJIF71(H)17 - 40 U/L110/12/2024 8:17 AM ESTCHILDREN'S HOSPITAL OF COLUMBUSpecimen (Source)Anatomical Location / LateralityCollection Method / VolumeCollection TimeReceived Time BloodVenous blood / UnknownVenipuncture / Hyxbjsu6008/11/2025 7:58 AM EST 08/11/2025 8:00 AM EST Narrative Authorizing ProviderResult TypeResult StatusTere NAM BLOOD ORDERABLESFinal ResultPerforming OrganizationAddressCity/State/ZIP CodePhone Number [address] [place] [address], [place] * (ABNORMAL) Lactate w/ Reflex (08/11/2025 7:58 AM EST)ComponentValueRef Range Test MethodAnalysis TimePerformed AtPathologist SignatureLACTATE W/REFLEX5.1 (HH)0.4 - 2.0 mmol/L110/12/2024 8:44 AM [facility] Specimen (Source)Anatomical Location / LateralityCollection Method / Volume Collection TimeReceived TimeBloodVenous blood / UnknownVenipuncture / Unknown 08/11/2025 7:58 AM EST08/11/2025 8:00 AM EST Narrative Authorizing ProviderResult TypeResult StatusTere Pantoja MDLAB BLOOD ORDERABLESFinal ResultPerforming OrganizationAddressCity/State/ZIP CodePhone Number [address] [place] [address], [place] * (ABNORMAL) Comprehensive metabolic panel (08/11/2025 7:58 AM EST)Component ValueRef RangeTest MethodAnalysis TimePerformed AtPathologist SignatureSODIUM [id number] - 146 mmol/L110/12/2024 8:20 AM [facility] POTASSIUM4.63.5 - 5.0 mmol/L110/12/2024 8:20 AM [facility]USCHLORIDE10598 - 109 mmol/L110/12/2024 8:20 AM [facility]CARBON XDLNGNP18(L)22 - 32 mmol/L110/12/2024 8:20 AM EST [facility]USANION BZO563 - 15 mmol/L110/12/2024 8:20 AM [facility]BLOOD UREA WIQLKJKA33 - 23 mg/dL 08/11/2025 8:20 AM [facility]CREATININE0.930.70 - 1.20 mg/dL08/11/2025 8:20 AM [facility]ITALComment: METHOD TRACEABLE TO IDMS STPNRVFDGPHVOMC485(H)65 - 99 mg/dL08/11/2025 8:20 AM [facility]ITALCALCIUM9.68.5 - 10.5 mg/dL08/11/2025 8:20 AM [facility]ITALTOTAL PROTEIN7.86.0 - 8.0 g/dL 08/11/2025 8:20 AM [facility]ITALALBUMIN4.73.2 - 5.3 g/dL08/11/2025 8:20 AM [facility]ITALALKALINE VGYOYHUHODW04827 - 130 U/L110/12/2024 8:20 AM [facility]ITALAST32<=41 U/L110/12/2024 8:20 AM [facility] ALT33<=40 U/L110/12/2024 8:20 AM [facility] BILIRUBIN,TOTAL1.10.3 - 1.2 mg/dL08/11/2025 8:20 AM [facility]OSPITALEGFR Non-Race Dependent>90>=60 ml/min/1.73sq.m110/12/2024 8:20 AM [facility]ITALComment: eGFR not reported due to non-numeric value for Creatinine. Reported eGFR is based on the CKD-EPI 2020 equation that does not use a race coefficient. Specimen (Source)Anatomical Location / LateralityCollection Method / Volume Collection TimeReceived TimeBloodVenous blood / UnknownVenipuncture / Unknown 08/11/2025 7:58 AM EST08/11/2025 8:00 AM EST Narrative Authorizing ProviderResult TypeResult StatusTere NAM BLOOD ORDERABLESFinal ResultPerforming OrganizationAddressCity/State/ZIP CodePhone Number [address] [place] [address], [place] * APTT (08/11/2025 7:58 AM EST)ComponentValueRef RangeTest MethodAnalysis Time Performed AtPathologist JgvydeylxYPKP9598 - 37 sec08/11/2025 8:11 AM EST [facility] (Source)Anatomical Location / LateralityCollection Method / VolumeCollection TimeReceived TimeBloodVenous blood / UnknownVenipuncture / Ciqhznn7308/11/2025 7:58 AM EST08/11/2025 8:00 AM EST Narrative Authorizing ProviderResult TypeResult StatusTere NAM BLOOD ORDERABLESFinal ResultPerforming OrganizationAddressCity/State/ZIP CodePhone Number [address] [place] [address], [place] * Protime & INR (08/11/2025 7:58 AM EST)ComponentValueRef RangeTest Method Analysis TimePerformed AtPathologist NcnrtljtpKVUWZRS96.89.8 - 13.2 sec 08/11/2025 8:11 AM ESTW[facility] CAMPUSINR1.00.9 - 1.2 08/11/2025 8:11 AM [facility] (Source) Anatomical Location / LateralityCollection Method / VolumeCollection Time Received TimeBloodVenous blood / UnknownVenipuncture / Jvnhlmi0708/11/2025 7:58 AM EST08/11/2025 8:00 AM EST Narrative Authorizing ProviderResult TypeResult StatusTere NAM BLOOD ORDERABLESFinal ResultPerforming OrganizationAddressty/State/ZIP CodePhone Number [address] [place] [address], [place] * (ABNORMAL) CBC auto differential (08/11/2025 7:58 AM EST)ComponentValueRef RangeTest MethodAnalysis TimePerformed AtPathologist SignatureWBC6.34 - 11 10^9/L1/ 8:04 AM ESTPRORONALD REAGAN [facility] MEDICAL CENTERRBC Count4.70 4.1 - 5.7 10^12/L110/12/2024 8:04 AM [facility] Mermpigayj50.113 - 17 g/dL08/11/2025 8:04 AM ESTPROMEDIPIONEERS MEM[facility]IAL HOSPITALHematocrit42.839 - 50 %08/11/2025 8:[address] [facility]V9180 - 100 fL08/11/2025 8:[address] [facility]ITALH32.127 - 34 pg08/11/2025 8:[address] [facility]ITALHC35.332 - 36 g/dL08/11/2025 8:04 AM [facility]PITALRDW12.711.5 - 15 %08/11/2025 8:04 AM [facility]ITALPlatelet Zxfyj324022 - 450 10^9/L110/12/2024 8:04 AM EST [facility]AMPUSMPV8.97 - 12 fL08/11/2025 8:04 AM EST [facility]AMPUSNeutrophils %39.0%08/11/2025 8:04 AM EST [facility]AMPUSLymphocytes %40.5%08/11/2025 8:04 AM EST [facility] HOSPITALMonocytes %7.1%08/11/2025 8:04 AM EST [facility] HOSPITALEosinophils %12.5%08/11/2025 8:04 AM EST [facility]ITALBasophils %0.9%08/11/2025 8:04 AM EST [facility] HOSPITALNeutrophils Absolute (A)2.51.5 - 6.6 10^9/L 08/11/2025 8:04 AM ESTPROMEDIPIONEERS MEMORIAL HOSPITALLymphocytes Absolute 2.61.0 - 3.5 10^9/L110/12/2024 8:04 AM [facility] Monocytes Absolute0.50.0 - 0.9 10^9/L110/12/2024 8:04 AM [facility]ITALEosinophils Absolute0.8(H)0.0 - 0.4 10^9/L110/12/2024 8:04 AM [facility]ITALBasophils Absolute0.10.0 - 0.2 10^9/L 08/11/2025 8:04 AM [facility]ITALDifferential Type AUTOMATED RDJCBUXZAMQI51/21/2025 8:04 AM [facility]ITALpecimen (Source)Anatomical Location / LateralityCollection Method / VolumeCollection TimeReceived TimeBloodVenous blood / UnknownVenipuncture / Xacddqm0008/11/2025 7:58 AM EST08/11/2025 8:00 AM EST Narrative Authorizing ProviderResult TypeResult StatusTere NAM BLOOD ORDERABLESFinal ResultPerforming OrganizationAddressCity/State/ZIP CodePhone Number [place] [phone] [place] [address], * ECG 12 lead (08/11/2025 7:49 AM EST)Specimen (Source)Anatomical Location / LateralityCollection Method / VolumeCollection TimeReceived Time08/11/2025 7:49 AM EST Narrative TRACEMASTERVUE - 08/11/2025 11:08 AM EST Authorizing ProviderResult TypeResult StatusTere LITTLEJOHNG ORDERABLES Final ResultPerforming OrganizationAddressCity/State/ZIP CodePhone Number TRACEMASTERVUE documented in this encounter Visit Diagnoses Diagnosis Vasovagal syncope- Primary Syncope and collapse Closed fracture of right maxillary sinus, initial encounter ([facility]) Closed fracture of right orbital floor, initial encounter ([facility]) Closed fracture of nasal bone, initial encounter documented in this encounter Administered Medications Medication OrderMAR ActionAction DateDoseRateSite iohexoL (OMNIPAQUE) 350 mg iodine/mL injection 100 mL 100 mL, intravenous, Once in imaging, contrast, Starting on 08/11/25 at 0945, For 1 dose, VESICANT (RED) Given08/11/2025 9:52 AM ARI995 mL ketorolac (TORADOL) injection 30 mg 30 [...] 1 dose New Bag08/11/2025 8:30 AM EST1,000 tN5034 mL/hr sodium chloride 0.9 % flush 10 [...] - Provider: NGA Braun - Comment: Lot #[id number] 04/02/2028) sodium chloride 0.9 % flush 10 [...] DateEnd Date Cisco Blanc DO [address] [facility], [facility] [place] [address] PCP - GeneralFamily Ureepouc92/21/25documented as of this encounter
--- NOTE | 2025-08-14 11:05 | XR_ITS ---
[facility] [place] [id number] Patient Name: HARLAN ARNOLD MRN: [id number] date: 1970 Sex: M Assigned Patient Location: [facility] Current Patient Location: ED.MAIN Accession/Order Number: [id number] Exam Date: 08/14/2025 11:08 Report Date: 08/14/2025 11:30 At the request of: NON-STAFF PHYSICIAN MD Procedure: XR abdomen 1V SINGLE VIEW ABDOMEN COMPARISON: 08/12/[address] 06/21/2025 CLINICAL DATA: Chronic transit study. Constipation. Supine views of the abdomen pelvis were obtained. There is a large amount of colonic stool. There is some small bowel air, without disproportionate distention. There are 3 residual markers at the splenic flexure. There are also 5 residual markers in the distal descending/sigmoid region. No soft tissue masses or suspect renal calculi are noted. There are degenerative changes at the spine and SI joints. XR/XR abdomen 1V IMPRESSION: INCREASED COLONIC STOOL COMPATIBLE WITH CONSTIPATION. 8 RESIDUAL LEFT-SIDED MARKERS, DESCRIBED Impression dictated by: Anni Whitley M.D. 08/14/2025 11:30 AM Dictation Location: [place] [address] Electronically authenticated by: [id number] Y Date: 08/14/2025 11:30
--- OUTSIDE RECORDS SUMMARY | 2025-08-14 11:05 | XMS_ITS | Encounter Summary ---
Author Organization garbs [facility] tem Address [id number] [address] [place] [address] Care Team Providers Care Electrotype Finisher Name Role Phone GerardoCisco cao Paddy MCLAUGHLIN Primary Care Provider [phone] Encounter Details DateTypeDepartmentCare Team (Latest Contact Info)Eymxgedrojs89/24/2025Orders Only [facility] - Family Medicine [address] [place] [phone] Ref Prov, [place] [address] Social History Tobacco UseTypesPacks/DayYears UsedDateSmoking Tobacco: RxnebsVdxhbxibyr562 07/23/1985 - 12/20/2018Passive Smoke Exposure: PastSmokeless Tobacco: Never Comments:vape, today Alcohol UseStandard Drinks/WeekCommentsYes0 (1 standard drink = 0.6 oz pure alcohol)OccasionalAHC UtilitiesAnswerDate RecordedIn the past 12 months has the [employer], gas, oil, or water [employer] threatened to shut off services in your home?Yes09/11/2024Social Connection and Isolation PanelAnswerDate RecordedIn a typical week, how many times do you talk on the phone with family, friends, or neighbors?Twice a week08/01/2022How often do you get together with friends or relatives?Once a week08/01/2022How often do you attend synagogue or adventism services?Never08/01/2022ctive Member of Clubs or OrganizationsNot on file 08/01/2022How often do you attend meetings of the clubs or organizations you belong to?Never08/01/2022re you , , , , never , or living with a partner?Never vxhsoaj4808/01/2022UDIT-CAnswerDate RecordedQ1: How often do you have a drink containing alcohol?Monthly or less 09/11/2024Q2: How many drinks containing alcohol do you have on a typical day when you are drinking?Patient does not drink09/11/2024Q3: How often do you have six or more drinks on one occasion?Less than isepyud0809/11/2024Overall Financial Resource Strain (CARDIA)AnswerDate RecordedHow hard is it for you to pay for the very basics like food, housing, medical care, and heating?Very hard12/06/2023 PHQ-2AnswerDate RecordedTotal Dfjer523812/10/2024[facility] [place] of Occupational Health - Occupational Stress QuestionnaireAnswerDate [...] of a household?Yes12/06/2023hildcareAnswerDate RecordedDo problems getting child care specialist make 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 you to work [...] InformationValueDate RecordedSex Assigned at BirthNot on fileLegal FzoOiqv3403/27/2015 11:30 AM EDTGender IdentityNot on fileSexual OrientationNot on filedocumented as of this encounter Plan of Treatment Not on file documented as of this encounter Goals GoalPatient Goal TypeAssociated ProblemsRecent ProgressPatient-Stated?Author home with [facility] care Jenny Miguel RN Note: Evaluation of progress towards goal: with support from friends and family, patient needs to fllow up with [facility] documented as of this encounter Procedures Procedure NamePriorityDate/TimeAssociated DiagnosisCommentsXR ABDOMEN AP 1 VW Umwpaxb0408/12/2025 9:35 AM ESTdocumented in this encounter Results * X-ray abdomen ap 1 view (08/12/2025 9:35 AM EST)Anatomical RegionLaterality ModalityBody, AbdomenN/AComputed Radiography Narrative Authorizing ProviderResult TypeResult StatusNot In System Ref ProvIMG DIAGNOSTIC IMAGING ORDERABLESFinal Result documented in this encounter Visit Diagnoses Not on filedocumented in this encounter Additional Health Concerns AssessmentNoted TimePHQ-9 Depression Total Score: 1:04 PM EDT documented as of this encounter Care Teams Team MemberRelationshipSpecialtyStart DateEnd Date Cisco Blanc DO [address] [facility], [place] [address] PCP - GeneralFamily Hudbguli59/21/25documented as of this encounter
--- OUTSIDE RECORDS SUMMARY | 2025-08-14 11:05 | XMS_ITS | Encounter Summary ---
Author Organization [employer] tem Address [id number] [address] [place] [address] Care Team Providers Care Information Systems Planner Name Role Phone Jayashree Cisco Paddy MCLAUGHLIN Primary Care Provider [phone] Encounter Details DateTypeDepartmentCare Team (Latest Contact Info)Rgieguxhpfg39/21/2025Travel Social History Tobacco UseTypesPacks/DayYears UsedDateSmoking Tobacco: EhagdqQrgnjicbvc231 07/23/1985 - 12/20/2018Passive Smoke Exposure: PastSmokeless Tobacco: Never Comments:vape, today Alcohol UseStandard Drinks/WeekCommentsYes0 (1 standard drink = 0.6 oz pure alcohol)OccasionalAHC UtilitiesAnswerDate RecordedIn the past 12 months has the electric, gas, oil, or water [employer] threatened to shut off services in your home?Yes09/11/2024Social Connection and Isolation PanelAnswerDate RecordedIn a typical week, how many times do you talk on the phone with family, friends, or neighbors?Twice a week08/01/2022How often do you get together with friends or relatives?Once a week08/01/2022How often do you attend hindu or mu-ism services?Never08/01/2022ctive Member of Clubs or OrganizationsNot on file 08/01/2022How often do you attend meetings of the clubs or organizations you belong to?Never08/01/2022re you , , , , never , or living with a partner?Never hhrqgco2308/01/2022UDIT-CAnswerDate RecordedQ1: How often do you have a drink containing alcohol?Monthly or less 09/11/2024Q2: How many drinks containing alcohol do you have on a typical day when you are drinking?Patient does not drink09/11/2024Q3: How often do you have six or more drinks on one occasion?Less than bwlwshn8609/11/2024Overall Financial Resource Strain (CARDIA)AnswerDate RecordedHow hard is it for you to pay for the very basics like food, housing, medical care, and heating?Very hard12/06/2023 PHQ-2AnswerDate RecordedTotal Asvon788412/10/2024[facility] Occupational Health - Occupational Stress QuestionnaireAnswerDate [...] of a household?Yes12/06/2023hildcareAnswerDate RecordedDo problems getting child center assistant make 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 you to work [...] InformationValueDate RecordedSex Assigned at BirthNot on fileLegal NpbJhcn2803/27/2015 11:30 AM EDTGender IdentityNot on fileSexual OrientationNot on filedocumented as of this encounter Plan of Treatment Not on file documented as of this encounter Goals GoalPatient Goal TypeAssociated ProblemsRecent ProgressPatient-Stated?Author home with self care Jenny Miguel, RN Note: Evaluation of progress towards goal: with support from friends and family, patient needs to [facility] documented as of this encounter Visit Diagnoses Not on filedocumented in this encounter Additional Health Concerns InfectionOnset DateLast IndicatedResolved TimeRespiratory Rule-Out08/11/2025 8:46 AM ESTAssessmentNoted TimePHQ-9 Depression Total Score: 1:04 PM EDTdocumented as of this encounter Care Teams Team MemberRelationshipSpecialtyStart DateEnd Date Cisco Blanc DO [address], [facility] [place] [address] PCP - GeneralFamily Sshpvexc00/21/25documented as of this encounter
--- OUTSIDE RECORDS SUMMARY | 2025-08-14 11:05 | XMS_ITS | Encounter Summary ---
Author Organization [facility] Address [facility] [id number] [address] [place] [address] Care Team Providers Care Filler Spreader Name Role Phone Cisco Blanc DO Primary Care Provider + [phone] Reason for Referral * Medication Prior Authorization - ClosedSpecialtyDiagnoses / ProceduresReferred By ContactReferred To Contact Diagnoses Anal fissure Cisco Blanc DO [address], [facility] [place] [address] Phone: tel: fax: Referral IDStatusReasonStart DateExpiration DateVisits RequestedVisits [id number] Reason for Visit * ReasonOnset DateCommentsMed Irxleb5108/02/2025 Encounter Details DateTypeDepartmentCare Team (Latest Contact Info)Aibputjzswq28/12/2025Refill [facility]icians Internal Medicine - Family Medicine [address] [place] [address] Cisco Blanc DO [address], [facility] [place] [address] Anal fissure Social History Tobacco UseTypesPacks/DayYears UsedDateSmoking Tobacco: EmlyjdArbmbibvnd989 07/23/1985 - 12/20/2018Passive Smoke Exposure: PastSmokeless Tobacco: Never Comments:vape, today Alcohol UseStandard Drinks/WeekCommentsYes0 (1 standard drink = 0.6 oz pure alcohol)OccasionalAHC UtilitiesAnswerDate RecordedIn the past 12 months has the electric, gas, oil, or water company threatened to shut off services in your home?Yes09/11/2024Social Connection and Isolation PanelAnswerDate RecordedIn a typical week, how many times do you talk on the phone with family, friends, or neighbors?Twice a week08/01/2022How often do you get together with friends or relatives?Once a week08/01/2022How often do you attend oriental orthodox or sabianist services?Never08/01/2022ctive Member of Clubs or OrganizationsNot on file 08/01/2022How often do you attend meetings of the clubs or organizations you belong to?Never08/01/2022re you , , , , never , or living with a partner?Never ipgzeau4608/01/2022UDIT-CAnswerDate RecordedQ1: How often do you have a drink containing alcohol?Monthly or less 09/11/2024Q2: How many drinks containing alcohol do you have on a typical day when you are drinking?Patient does not drink09/11/2024Q3: How often do you have six or more drinks on one occasion?Less than zdofkxw9609/11/2024Overall Financial Resource Strain (CARDIA)AnswerDate RecordedHow hard is it for you to pay for the very basics like food, housing, medical care, and heating?Very hard12/06/2023 PHQ-2AnswerDate RecordedTotal Awlne550712/10/2024[facility] [place] of Occupational Health - Occupational Stress QuestionnaireAnswerDate RecordedDo you feel stress - tense, restless, nervous, or anxious, or unable to sleep at night because your mind is troubled all the time - these days?Very much08/01/2022Exercise Vital SignAnswerDate RecordedOn average, how many days per week do you engage in moderate to strenuous exercise (like a brisk walk)?2 days2On average, how many minutes do you engage [...] part of a household?Yes12/06/2023hildcareAnswerDate RecordedDo problems getting residential child care counselor make 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 you to [...] InformationValueDate RecordedSex Assigned at BirthNot on fileLegal OjyCbmk8903/27/2015 11:30 AM EDTGender IdentityNot on fileSexual OrientationNot on filedocumented as of this encounter Miscellaneous Notes * Telephone Encounter - Cisco Blnac DO - 08/02/2025 2:29 PM EST Rx's sent in. He no showed last appointment. Please reschedule * Telephone Encounter - Linda Marc CMA - 08/02/2025 2:29 PM EST Left message to reschedule his last appt that he missed. documented in this encounter Plan of Treatment Not on file documented as of this encounter Goals GoalPatient Goal TypeAssociated ProblemsRecent ProgressPatient-Stated?Author home with [facility] care Jenny Miguel, RN Note: Evaluation of progress towards goal: with support from friends and family, patient needs to fllow up with [facility] upon [facility] documented as of this encounter Visit Diagnoses Diagnosis Anal fissure documented in this encounter Additional Health Concerns InfectionOnset DateLast IndicatedResolved TimeRespiratory Rule-Out08/11/2025 8:46 AM ESTAssessmentNoted TimePHQ-9 Depression Total Score: 1:04 PM EDTdocumented as of this encounter Care Teams Team MemberRelationshipSpecialtyStart DateEnd Date Cisco Blanc DO [address] [facility], [facility] [place] [address] PCP - GeneralFamily Hswzlwwb10/21/25documented as of this encounter
--- OUTSIDE RECORDS SUMMARY | 2025-08-14 11:05 | XMS_ITS | Encounter Summary ---
Author Organization [facility] tem Address [id number] [address] [place] [address] Care Team Providers Care Bale Breaker Operator Name Role Phone Cisco Blanc DO Primary Care Provider + [phone] Reason for Visit * ReasonOnset DateCommentsMed Dvfnqs0308/11/2025 Encounter Details DateTypeDepartmentCare Team (Latest Contact Info)Swzdovszwnk07/21/2025Refill [facility] Physicians Internal Medicine - Family Medicine [address] [place] [id number] Cisco Blanc DO [address] [facility], [facility] [place] [address] Social History Tobacco UseTypesPacks/DayYears UsedDateSmoking Tobacco: MeexfmEwnviyzvha992 07/23/1985 - 12/20/2018Passive Smoke Exposure: PastSmokeless Tobacco: [...] get together with friends or relatives?Once a week12/11/2022How often do you attend zoroastrian or yazidism services?Never08/01/2022ctive Member of Clubs or OrganizationsNot on file 08/01/2022How often do you attend meetings of the clubs or organizations you belong to?Never08/01/2022re you , , , , never , or living with a partner?Never oqgoelr0308/01/2022UDIT-CAnswerDate RecordedQ1: How often do you have a drink containing alcohol?Monthly or less 09/11/2024Q2: How many drinks containing alcohol do you have on a typical day when you are drinking?Patient does not drink09/11/2024Q3: How often do you have six or more drinks on one occasion?Less than mhbpngj7909/11/2024Overall Financial Resource Strain (CARDIA)AnswerDate RecordedHow hard is it for you to pay for the very basics like food, housing, medical care, and heating?Very hard12/06/2023 PHQ-2AnswerDate RecordedTotal Jumxr250312/10/2024[facility] [place] of Occupational Health - Occupational Stress QuestionnaireAnswerDate [...] InformationValueDate RecordedSex Assigned at BirthNot on fileLegal VgrRmhp2703/27/2015 11:30 AM EDTGender IdentityNot on fileSexual OrientationNot [...] DO [address], [place] [address] PCP - GeneralFamily Pvgzvtnz08/21/25documented as of this encounter
--- OUTSIDE RECORDS SUMMARY | 2025-08-14 11:06 | XMS_ITS | Clinical Summary ---
Author Organization [facility] Healthcare Address [address] [place] [address] Care Team Providers Care Director Operations Name Role Phone Unavailable Primary Care Provider Unavailabl e Social History Tobacco UseTypesPacks/DayYears UsedDateSmoking Tobacco: Never AssessedSex and Gender InformationValueDate RecordedSex Assigned at BirthNot on fileLegal Sex Male11/03/2022 7:16 PM EDTGender IdentityNot on fileSexual OrientationNot on file Last Filed Vital Signs Vital SignReadingTime TakenCommentsBlood Pressure--Pulse--Temperature-- Respiratory Rate--Oxygen Saturation--Inhaled Oxygen Concentration--Sleigg80.8 kg (220 lb)07/29/2020 12:00 PM NWXFfoenf245.7 cm (5' 8 )07/29/2020 12:00 PM ESTBody Mass Index33.45109/29/2019 12:00 PM EST Plan of Treatment Not on file
--- OUTSIDE RECORDS SUMMARY | 2025-08-14 11:06 | XMS_ITS | Clinical Summary ---
Author Organization [facility] Address [address] [place] [address] Care Team Providers Care Manager Finance Name Role Phone Unavailable Primary Care Provider Unavailabl e Social History Tobacco UseTypesPacks/DayYears UsedDateSmoking Tobacco: Never AssessedUT Safety & EnvironmentAnswerDate RecordedFear of Current or Ex-PartnerNot on file 10/13/2023Emotionally AbusedNot on file10/13/2023hysically AbusedNot on file 10/13/2023Sexually AbusedNot on file4Physically or Sexually AbusedNot on file10/13/2023Sex and Gender InformationValueDate RecordedSex Assigned at BirthNot on fileLegal MptZxzu6102/17/2022 11:50 PM EDTGender IdentityNot on file Sexual OrientationNot on file Plan of Treatment Health MaintenanceDue DateLast DoneCommentsCT Ldjpgcbylbzc30/14/1969Colonoscopy 1968Colorectal Cancer Vgudzfsbc47/14/1969FIT-DNA1968FIT1968 FOBT1970 1940Wowdglwlashwc13/14/1969Depression Ppufjlatd48/14/1981Hepatitis B Vaccines (1 of 3 - 19+ 3-dose series)1987Pneumococcal Vaccine: Pediatrics (0 to 5 Years) and At-Risk Patients (6 to 64 Years) (1 of 2 - PCV)1987 Adult Qasisoe4409/04/1990Zoster Vaccines (1 of 2)2018COVID-19 Vaccine (1 - [...] Russell TypeRelation to PatientDate of BirthPhone Billing AddressPersonal/ZdsyyyCbdg46/14/1971 [address] [place] [address] * Guarantor: Chai Russell TypeRelation to PatientDate of BirthPhone Billing AddressThird Democrat VdbfjqquaUcuy95/14/1971 [address] [place] [address]
--- OUTSIDE RECORDS SUMMARY | 2025-08-14 11:06 | XMS_ITS | Patient Health Record ---
Author Organization [facility] [place] Address [address] [place] [address] Care Team Providers Care Equalizing Saw Operator Name Role Phone Cisco Blanc DO [...] Status Risk Notes Problem Metatarsal bone fracture ([id number]) Displaced fracture of second metatarsal bone, [...] End Date [employer] [place] MEDICA[employer] [address] [place] [address] [id number] Ambika Russellelf - patient is the insured Medical (General) History Medical History History ICD Code Hypertension I10 Right foot pain M79.671 Surgical History Surgery Date(Month/Year) appendectomy compartment syndrome left hand
--- OUTSIDE RECORDS SUMMARY | 2025-08-14 11:06 | XMS_ITS | Clinical Summary ---
Author Organization [facility] Address [address] [place] [address], [address] [place] [address] Care Team Providers Care Crack Off Person Name Role Phone Tyson Fonseca MD Primary [...] InformationValueDate RecordedSex Assigned at BirthNot on fileLegal DvtDivz87/18/2016 11:50 AM ESTGender IdentityNot on fileSexual OrientationNot on file Last Filed Vital Signs Vital SignReadingTime TakenCommentsBlood Avpvavcf545/9007/09/2016 2:16 PM EST Zampt202807/09/2016 2:16 PM GHOVqgglauavkv43.5 ??C (97.7 ??F)07/09/2016 11:57 AM ESTRespiratory Llue724509/08/2015 2:01 PM ESTOxygen Nrblbormye18%07/09/2016 2:01 PM ESTInhaled Oxygen Concentration--Debzza07.1 kg (170 lb)07/09/2016 11:57 AM ESTHeight--Body Mass Index-- Plan of Treatment Not on file Care Teams Team MemberRelationshipSpecialtyStart DateEnd Date Tyson Fonseca MD [facility]07/09/16
--- OUTSIDE RECORDS SUMMARY | 2025-08-14 11:06 | XMS_ITS | Clinical Summary ---
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 30 g 5Active Additional Information Patient not taking.Reported on 08/11/2025 cloNIDine (CATAPRES) 0.1 mg tablet Take 1 tablet (0.1 mg total) by mouth in the morning and 1 tablet (0.1 mg total) before bedtime. 60 tablet 5Active Additional Information Patient not taking.Reported on 08/11/2025 polyethylene glycol (MIRALAX) 17 gram/dose powder Take 17 g by mouth in the morning. 510 g 5Active Additional Information Patient not taking.Reported on 08/11/2025 ibuprofen (MOTRIN) 800 mg tablet Indications:Closed fracture of right maxillary sinus, initial encounter ([facility]),Closed fracture of right orbital floor, initial encounter ([facility]), Closed fracture of nasal bone, initial encounterTake 1 tablet (800 mg total) by mouth every 8 (eight) hours as needed for pain. 30 tablet 5Active wheat dextrin (BENEFIBER SUGAR FREE, DEXTRIN,) 3 gram/4 gram powder Take 3 g by mouth in the morning. 152 g 5Active hydrocortisone-pramoxine (ANALPRAM-HC) 1-1 % rectal cream Indications:Anal fissureInsert 1 Application into the rectum in the morning and 1 Application before bedtime. 30 g Discontinued(Reorder) cloNIDine (CATAPRES) 0.1 mg tablet Take 1 tablet (0.1 mg total) by mouth in the morning and 1 tablet (0.1 mg total) before bedtime. 60 tablet /07/2025Discontinued(Reorder) polyethylene glycol (MIRALAX) 17 gram/dose powder Take 17 g by mouth in the morning. 510 g Discontinued(Reorder) wheat dextrin (BENEFIBER SUGAR FREE, DEXTRIN,) 3 gram/4 gram powder Take 3 g by mouth in the morning. 152 g Discontinued(Reorder) wheat dextrin (BENEFIBER SUGAR FREE, DEXTRIN,) 3 gram/4 gram powder Take 3 g by mouth in the morning. 152 g Discontinued(Reorder) Active Problems ProblemNoted DateDiagnosed IkebUyazdlyxhw44/21/2025Irritable bowel syndrome with both constipation and nkrwulcs21/21/2025hange in bowel gvoqqf924Paranoid cuuklxlf09/19/2024Polysubstance abuse4Persistent /29/2023 Chronic idiopathic efmfcysolkko56/14/2022lass 1 obesity due to excess calories with serious comorbidity and body mass index (BMI) of 32.0 to 32.9 in adult 08/04/2022Hypogonadism in male10/12/2021OVID-1902Delirium tremens 03/09/2021evere episode of recurrent major depressive disorder, without psychotic vdevanwv65/19/2021ssential hypertension, rijwbu6803/09/2021hronic hepatitis C without hepatic coma6553Pkflyvayu18/17/2021Acute hypoxemic respiratory ohrgelc41/14/2021Polyp of sigmoid colon10/17/2019Diverticulosis 10/17/2019Non-traumatic wjosttspranxvz05/27/2018Compartment syndrome of hand 12/29/2015Internal impingement of right afsiiplv72/09/0719Cuzkodk69/09/2015 Resolved Problems ProblemNoted DateDiagnosed DateResolved DateColon cancer lbznmfidf37/21/2020 10/17/20195706Zgezdliors91/29/2023 Encounters DateTypeDepartmentCare XijaZnhaybwgfjz02/24/2025Orders Only [facility] [address] [place] [address] Ref Prov, Not In System 08/11/2025 7:30 AM EST - 08/11/2025 12:[facility] [address] [place] [id number] Tere Pantoja MD Vasovagal syncope (Primary Dx); Closed fracture of right maxillary sinus, initial encounter (CMS-HCC); Closed fracture of right orbital floor, initial encounter (CMS-HCC); Closed fracture of nasal bone, initial encounter Discharge Disposition: Home08/11/2025Refill [facility] [address] [place] [address] Cisco Blanc, DO 08/11/20251962Kpwrik99/12/2025Refill [facility] [address] [place] [address] Cisco Blanc, DO Anal qbkvybd7506/06/2025Orders Only [facility] [address] [place] [address] Ref Prov, Not In System 05/20/2025 10:39 AM EDT - 05/20/2025 11:14 AM [facility] [address] [place] [id number] Rohit Renner MD Irritable bowel syndrome with both constipation and diarrhea (Primary Dx); Anxiety Discharge Disposition: Home05/20/2025Travelfrom Last 3 Months Immunizations ImmunizationAdministration DatesNext DueInfluenza, Injectable, quadrivalent (PF) 06/20/2021,04/06/2020,06/07/2019Tdap10/27/2013 Family History Medical HistoryRelationNameCommentsHypertensionBrother 1JohnNo Known Problems Brother 2RobertNo Known ProblemsDaughterCoronary artery diseaseFatherHeart attackFatherHeart attackMaternal GrandfatherHypertensionMotherHeart attack Paternal GrandfatherRelationNameStatusCommentsBrother 1JohnAliveBrother 2Robert AliveDaughterAliveFatherAliveMaternal GrandfatherMotherAlivePaternal Grandfather Social History Tobacco UseTypesPacks/DayYears UsedDateSmoking Tobacco: AzmojwFdppcjdtcw961 07/23/1985 - 12/20/2018Passive Smoke Exposure: PastSmokeless Tobacco: Never Tobacco Cessation:Counseling Given: Not Answered Comments:vape, today Alcohol UseStandard Drinks/WeekCommentsYes0 (1 standard drink = 0.6 oz pure alcohol)OccasionalAHC UtilitiesAnswerDate RecordedIn the past 12 months has the [employer], gas, oil, or water [employer] threatened to shut off services in your home?Yes09/11/2024Social Connection and Isolation PanelAnswerDate RecordedIn a typical week, how many times do you talk on the phone with family, friends, or neighbors?Twice a week08/01/2022How often do you get together with friends or relatives?Once a week08/01/2022How often do you attend jew or orthodox services?Never08/01/2022ctive Member of Clubs or OrganizationsNot on file 08/01/2022How often do you attend meetings of the clubs or organizations you belong to?Never08/01/2022re you , , , , never , or living with a partner?Never fkxyncs9308/01/2022UDIT-CAnswerDate RecordedQ1: How often do you have a drink containing alcohol?Monthly or less 09/11/2024Q2: How many drinks containing alcohol do you have on a typical day when you are drinking?Patient does not drink09/11/2024Q3: How often do you have six or more drinks on one occasion?Less than ggltfxq2809/11/2024Overall Financial Resource Strain (CARDIA)AnswerDate RecordedHow hard is it for you to pay for the very basics like food, housing, medical care, and heating?Very hard12/06/2023 PHQ-2AnswerDate RecordedTotal Cidog741412/10/2024[facility] [place] [facility] Occupational Health - Occupational Stress QuestionnaireAnswerDate [...] part of a household?Yes12/06/2023hildcareAnswerDate RecordedDo problems 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 [...] InformationValueDate RecordedSex Assigned at BirthNot on fileLegal VcsWruh7703/27/2015 11:30 AM EDTGender IdentityNot on fileSexual OrientationNot on file Last Filed Vital Signs Vital SignReadingTime TakenCommentsBlood Cvyvirzi185/8483008/11/2025 12:03 PM EST Zqqez77829/21/2025 12:03 PM HLOLhygqshuzys85.4 ??C (97.5 ??F)08/11/2025 7:41 AM ESTRespiratory Loop8941 12:03 PM ESTOxygen Ndxvfdvymu23%08/11/2025 12:03 PM ESTInhaled Oxygen Concentration--Frsjwy30.9 kg (174 lb)08/11/2025 7:41 AM EST Loiyob823.7 cm (5' 8 )08/11/2025 7:41 AM ESTBody Mass Index26.4608/11/2025 7:41 AM EST Plan of Treatment Health MaintenanceDue DateLast DoneCommentsAdult BMI Follow Up Plan1986 COVID-19 Vaccine ( season), 12/08/2020, 11/18/2020Influenza Pwswqvf00, 04/06/2020, 06/07/2019 Depression Iyojgixoi21Zoster (Shingles) Vaccine (1 of 2) 12/10/2025Postponed from 2018 (Patient Refused)Adult BMI Screening Tobacco Fsyyilhmg69olonoscopy02/16/2034 02/17/2024, 4DTaP,Tdap and Td Vaccines (3 - Td or Tdap)06/12/2035 06/12/2025, 10/27/2013 Goals GoalPatient Goal TypeAssociated ProblemsRecent ProgressPatient-Stated?Author home with self care Jenny Miguel RN Note: Evaluation of progress towards goal: with support from friends and family, patient needs to fll[facility] up with [facility] [place] [employer] Not on file Procedures Procedure NamePriorityDate/TimeAssociated DiagnosisCommentsXR ABDOMEN AP 1 VW Xsyyxoq7208/12/2025 9:35 AM AHSRTMBNZFYLPW80/21/2025 11:[address] CTA BTFIZQFJU42/21/2025 9:[address] FACIAL BONES WO EJPQXDTO94/21/2025 9:[address] CERVICAL SPINE WO FMGYKLXQ23/21/2025 9:[address] BRAIN WO GBBSZJPH84/21/2025 9:34 AM EST XR CHEST 2 CCVDJDH34/21/2025 9:28 AM EST TROP I, HIGH SENSITIVITY 1 ZGIISGMS50/21/2025 8:57 AM EST SARS/FLU A+B/RSV BY NAAT/MOLECULAR (M4RT COLLECTION TUBE)STAT110/12/2024 8:00 AM EST D-VLPCTWDFQ08/21/2025 7:58 AM EST TROPONIN I, HIGH SENSITIVITY 0 GAPHHMDH61/21/2025 7:58 AM EST THYROID PROFILE INCLUDES TSH CN3LALO8908/11/2025 7:58 AM EST BXMCEXHLHZN53/21/2025 7:58 AM EST TROPONIN I, HIGH SENSITIVITY 0 THMTHEWP83/21/2025 7:58 AM EST ROSXQVOIBGXOW89/21/2025 7:58 AM EST OOMVGHADFY22/21/2025 7:58 AM EST LACTATE W/ QJGXINGXHX59/21/2025 7:58 AM EST COMPREHENSIVE METABOLIC IKWKZXQIF15/21/2025 7:58 AM EST HXOKEEPT13/21/2025 7:58 AM EST PROTIME & VXOGCNX5508/11/2025 7:58 AM EST CBC WITH AUTO IMBMWPWOOJSSRYNL71/21/2025 7:58 AM EST ECG 12-UZRCSPVY91/21/2025 7:49 AM EST XR ANKLE RT MIN 3 KLUPbjouaa19/16/2025 8:30 AM EDTXR FOOT RT MIN 3 VWSRoutine 06/06/2025 8:28 AM EDTPROVATION LXHPEKSADNOYssuzhv77/28/2024 1:59 PM EDT from Last 3 Months or Most Recently Relevant to Health Maintenance Results * X-ray abdomen ap 1 view (08/12/2025 9:35 AM EST)Anatomical RegionLaterality ModalityBody, AbdomenN/AComputed Radiography Narrative Authorizing ProviderResult TypeResult StatusNot In System Ref ProvIMG DIAGNOSTIC IMAGING ORDERABLESFinal Result * (ABNORMAL) Lactate (08/11/2025 11:56 AM EST)ComponentValueRef RangeTest Method Analysis TimePerformed AtPathologist SignatureLACTATE2.3(H)0.4 - 2.0 mmol/L 08/11/2025 12:16 PM ESTPROMEDICA LANCASTER COMMUNITY HOSPITALpecimen (Source) Anatomical Location / LateralityCollection Method / VolumeCollection Time Received TimeBloodVenous blood / UnknownVenipuncture / Mntxhfg0708/11/2025 11:56 AM EST08/11/2025 11:58 AM EST Narrative Authorizing ProviderResult TypeResult StatusMadelelvira NAM BLOOD ORDERABLESFinal ResultPerforming OrganizationAddressCity/State/ZIP CodePhone Number [facility] [address] [place] [address], [place] * CT angiogram chest (08/11/2025 9:51 AM [...] on 08/11/2025 10:08 AM Authorizing ProviderResult TypeResult StatusChiquita Steele [facility] CT ORDERABLES Final Result * CT [...] on 08/11/2025 10:02 AM Authorizing ProviderResult TypeResult StatusMaphilippe Pantoja MDPaddy CT ORDERABLESFinal Result * CT cervical spine [...] 10:02 AM Authorizing ProviderResult TypeResult StatusMadelelvira Pantoja MDIMG CT ORDERABLESFinal Result * X-ray chest 2 [...] SignatureTROPONIN I, HIGH SENSITIVITY2<21 ng/L110/12/2024 9:34 AM [facility] Specimen (Source)Anatomical Location / LateralityCollection Method / Volume Collection TimeReceived TimeBloodVenous blood / UnknownVenipuncture / Unknown 08/11/2025 8:57 AM EST08/11/2025 9:03 AM EST Narrative Authorizing ProviderResult TypeResult StatusTere NAM BLOOD ORDERABLESFinal ResultPerforming OrganizationAddressCity/State/ZIP CodePhone Number [facility] [address] [place] [address], * SARS/FLU A+B/RSV by NAAT/Molecular (M4RT Collection Tube) (08/11/2025 8:00 AM EST)ComponentValueRef RangeTest MethodAnalysis TimePerformed AtPathologist SignatureFLU A AZCAocqejgvRupyxnss76/21/2025 8:46 AM [facility] SYSTEMFLU B RSZCprquhpxIedlypjz54/21/2025 8:46 AM [facility] SYSTEMRSV BY OCSOudwxykoNjcxsrwr40/21/2025 8:46 AM EST [facility] COV 2 BY PCRNot DetectedNot Detected 08/11/2025 8:46 AM [facility] ([facility]) Anatomical Location / LateralityCollection Method / VolumeCollection Time Received TimeSwabNasopharyngeal structure / Qmdomwd6208/11/2025 8:00 AM EST 08/11/2025 8:09 AM EST Narrative [facility] - 08/11/2025 8:46 AM EST The [...] operators who are performing tests using either GeneTablefinder DX or [employer] systems and is limited to laboratories that [...] with specimen repeat. Authorizing ProviderResult TypeResult StatusMadelyn R Aittama MDMICROBIOLOGY - GENERAL ORDERABLESFinal ResultPerforming OrganizationAddressCity/State/ZIP Code Phone Number [address] [address], * Troponin I, High Sensitivity 0 Hour (08/11/2025 7:58 AM EST)ComponentValueRef RangeTest MethodAnalysis TimePerformed AtPathologist SignatureTROPONIN I, HIGH SENSITIVITY3<21 ng/L110/12/2024 8:29 AM [facility] Specimen (Source)Anatomical Location / LateralityCollection Method / Volume Collection TimeReceived TimeBloodVenous blood / UnknownVenipuncture / Unknown 08/11/2025 7:58 AM EST08/11/2025 8:00 AM EST Narrative Authorizing ProviderResult TypeResult StatusTere NAM BLOOD ORDERABLESFinal ResultPerforming OrganizationAddressCity/State/ZIP CodePhone Number [address] [place] [address], [place] * (ABNORMAL) Lactate w/ Reflex (08/11/2025 7:58 AM EST)ComponentValueRef Range Test MethodAnalysis TimePerformed AtPathologist SignatureLACTATE W/REFLEX5.1 (HH)0.4 - 2.0 mmol/L110/12/2024 8:44 AM [facility] Specimen (Source)Anatomical Location / LateralityCollection Method / Volume Collection TimeReceived TimeBloodVenous blood / UnknownVenipuncture / Unknown 08/11/2025 7:58 AM EST08/11/2025 8:00 AM EST Narrative Authorizing ProviderResult TypeResult StatusTere NAM BLOOD ORDERABLESFinal ResultPerforming OrganizationAddGuthrie Towanda Memorial Hospitalty/State/ZIP CodePhone Number [address] [address], [place] * Thyroid profile includes TSH FT4 (08/11/2025 7:58 AM EST)ComponentValueRef RangeTest MethodAnalysis TimePerformed AtPathologist SignatureFREE T40.720.61 - 1.60 ng/dL08/11/2025 8:40 AM [facility] SYSTEMTSH2.29 0.49 - 4.67 uIU/mL08/11/2025 8:40 AM [facility] Specimen (Source)Anatomical Location / LateralityCollection Method / Volume Collection TimeReceived TimeBloodVenous blood / UnknownVenipuncture / Unknown 08/11/2025 7:58 AM EST08/11/2025 8:00 AM EST Narrative Authorizing ProviderResult TypeResult StatusTere NAM BLOOD ORDERABLESFinal ResultPerforming OrganizationAddressCity/State/ZIP CodePhone Number [facility] [address] [place] [address], * (ABNORMAL) CBC auto differential (08/11/2025 7:58 AM EST)ComponentValueRef RangeTest MethodAnalysis TimePerformed AtPathologist SignatureWBC6.34 - 11 10^9L110/12/2024 8:04 AM [facility] SYSTEMRBC Count4.70 4.1 - 5.7 10^1208/11/2025 8:04 AM [facility] Kwnutdskjw37.113 - 17 g/dL08/11/2025 8:04 AM [facility] SYSTEMHematocrit42.839 - 50 %08/11/2025 8:04 AM [facility] SYSTEMMCV9180 - 100 fL08/11/2025 8:04 AM [facility] SYSTEMMCH32.127 - 34 pg08/11/2025 8:04 AM [facility] SYSTEMMCHC35.332 - 36 g/dL08/11/2025 8:04 AM [facility] SYSTEMRDW12.711.5 - 15 %08/11/2025 8:04 AM [facility] SYSTEMPlatelet Towsd163256 - 450 10^9L110/12/2024 8:04 AM EST [facility]ITALMPV8.97 - 12 fL08/11/2025 8:04 AM EST [facility]ITALNeutrophils %39.0%08/11/2025 8:04 AM EST [facility]ITALLymphocytes %40.5%08/11/2025 8:04 AM EST [facility]Monocytes %7.1%08/11/2025 8:04 AM EST [facility] HOSPITALEosinophils %12.5%08/11/2025 8:04 AM EST [facility]Basophils %0.9%08/11/2025 8:04 AM EST [facility]OS[facility]ITALNeutrophils Absolute (A)2.51.5 - 6.6 10^9/L 08/11/2025 8:04 AM ESTBUCYRUS COMMUNITY HOSPITALLymphocytes Absolute 2.61.0 - 3.5 10^9/L110/12/2024 8:04 AM [facility] Monocytes Absolute0.50.0 - 0.9 10^9/L110/12/2024 8:04 AM ESTPROCOMMUNITY HOSPITAL HOSPITALEosinophils Absolute0.8(H)0.0 - 0.4 10^9/L110/12/2024 8:04 AM ESTBUCYRUS COMMUNITY HOSPITALBasophils Absolute0.10.0 - 0.2 10^9/L 08/11/2025 8:04 AM [facility] SYSTEMDifferential Type AUTOMATED RDAOQAVTMQUB82/21/2025 8:04 AM [facility]pecimen (Source)Anatomical Location / LateralityCollection Method / VolumeCollection TimeReceived TimeBloodVenous blood / UnknownVenipuncture / Lnmewss4508/11/2025 7:58 AM EST08/11/2025 8:00 AM EST Narrative Authorizing ProviderResult TypeResult StatusTere NAM BLOOD ORDERABLESFinal ResultPerforming OrganizationAddressCity/State/ZIP CodePhone Number [facility] [address] [place] [address], * APTT (08/11/2025 7:58 AM EST)ComponentValueRef RangeTest MethodAnalysis Time Performed AtPathologist BeeduwxgnWLAG6953 - 37 sec08/11/2025 8:11 AM EST [facility] (Source)Anatomical Location / LateralityCollection Method / VolumeCollection TimeReceived TimeBloodVenous blood / UnknownVenipuncture / Qnatkvj4708/11/2025 7:58 AM EST08/11/2025 8:00 AM EST Narrative Authorizing ProviderResult TypeResult StatusTere Pantoja MDLAB BLOOD ORDERABLESFinal ResultPerforming OrganizationAddressty/State/ZIP CodePhone Number [address] [place] [address], [place] * Protime & INR (08/11/2025 7:58 AM EST)ComponentValueRef RangeTest Method Analysis TimePerformed AtPathologist RsqvqbeimIHHDPJI56.89.8 - 13.2 sec 08/11/2025 8:11 AM [facility] SYSTEMINR1.00.9 - 1.2 08/11/2025 8:11 AM [facility]ITALpecwarm [facility] (Source) Anatomical Location / LateralityCollection Method / VolumeCollection Time Received TimeBloodVenous blood / UnknownVenipuncture / Dwooupj2008/11/2025 7:58 AM EST08/11/2025 8:00 AM EST Narrative Authorizing ProviderResult TypeResult StatusTere Pantoja MDCOFFEY COUNTY [facility]PITAL BLOOD ORDERABLESFinal ResultPerforming OrganizationAddressDoctors Hospital/State/[facility] CodePhone Number [address] [place] [address], * (ABNORMAL) D-Dimer (08/11/2025 7:58 AM EST)ComponentValueRef RangeTest Method Analysis TimePerformed AtPathologist SignatureD LUVWT024(H)1 - 255 ng/mL 08/11/2025 8:11 AM [facility] SYSTEMComment:Results >255 ng/mL DDU: Results may be indicative [...] TimeReceived TimeBloodVenous blood / Unknown Venipuncture / Jkxaaki6908/11/2025 7:58 AM EST08/11/2025 8:00 AM EST Narrative Authorizing ProviderResult TypeResult StatusTere NAM BLOOD ORDERABLESFinal ResultPerforming OrganizationAddressCity/State/ZIP CodePhone Number [address] [place] [address], [place] * Magnesium (08/11/2025 7:58 AM EST)ComponentValueRef RangeTest MethodAnalysis TimePerformed AtPathologist SignatureMAGNESIUM2.21.8 - 2.6 mg/dL08/11/2025 8:20 AM ESTPROKaiser Fresno Medical Centern (Source)Anatomical Location / LateralityCollection Method / VolumeCollection TimeReceived Time BloodVenous blood / UnknownVenipuncture / Ennbbqh4508/11/2025 7:58 AM EST 08/11/2025 8:00 AM EST Narrative Authorizing ProviderResult TypeResult StatusTere Pantoja MDLAB BLOOD ORDERABLESFinal ResultPerforming OrganizationAddressCity/State/ZIP CodePhone Number [address] [address], [place] * (ABNORMAL) Lipase (08/11/2025 7:58 AM EST)ComponentValueRef RangeTest Method Analysis TimePerformed AtPathologist HqknjgmzbDDJSYQ02(H)17 - 40 U/L110/12/2024 8:17 AM [facility]STMagruder [facility] (Source)Anatomical Location / LateralityCollection Method / VolumeCollection TimeReceived Time BloodVenous blood / UnknownVenipuncture / Gbrnnyl3408/11/2025 7:58 AM EST 08/11/2025 8:00 AM EST Narrative Authorizing ProviderResult TypeResult StatusTere Pantoja MDLAB BLOOD ORDERABLESFinal ResultPerforming OrganizationAddressCity/State/ZIP CodePhone Number [address] [address], [place] * Ethanol (08/11/2025 7:58 AM EST)ComponentValueRef RangeTest MethodAnalysis TimePerformed AtPathologist SignatureETHANOL<0.01<=0.08 g/dL08/11/2025 8:20 AM [facility] SYSTEMComment: This report is intended for use in clinical monitoring or management of patients. Specimen (Source)Anatomical Location / LateralityCollection Method / Volume Collection TimeReceived TimeBloodVenous blood / UnknownVenipuncture / Unknown 08/11/2025 7:58 AM EST08/11/2025 8:00 AM EST Narrative Authorizing ProviderResult TypeResult StatusMaphilippe NAM BLOOD ORDERABLESFinal ResultPerforming OrganizationAddressCity/State/ZIP CodePhone Number [place] [phone] [place] [address], * (ABNORMAL) Comprehensive metabolic panel (08/11/2025 7:58 AM EST)Component ValueRef RangeTest MethodAnalysis TimePerformed AtPathologist SignatureSODIUM 186164 - 146 mmol/L110/12/2024 8:20 AM [facility] POTASSIUM4.63.5 - 5.0 mmol/L110/12/2024 8:20 AM [facility] SYSTEMCHLORIDE10598 - 109 mmol/L110/12/2024 8:20 AM [facility] SYSTEMCARBON WQCLDSQ02(L)22 - 32 mmol/L110/12/2024 8:20 AM EST [facility]ITALANION PFP067 - 15 mmol/L110/12/2024 8:20 AM [facility] SYSTEMBLOOD UREA GBFDXFIF25 - 23 mg/dL 08/11/2025 8:20 AM [facility] SYSTEMCREATININE0.930.70 - 1.20 mg/dL08/11/2025 8:20 AM [facility] SYSTEMComment: METHOD TRACEABLE TO IDMS NEBBXDQGCXNVZCD362(H)65 - 99 mg/dL08/11/2025 8:20 AM [facility] SYSTEMCALCIUM9.68.5 - 10.5 mg/dL08/11/2025 8:20 AM [facility] SYSTEMTOTAL PROTEIN7.86.0 - 8.0 g/dL 08/11/2025 8:20 AM [facility] SYSTEMALBUMIN4.73.2 - 5.3 g/dL08/11/2025 8:20 AM [facility] SYSTEMALKALINE JRTVXVSMTWO61222 - 130 U/L110/12/2024 8:20 AM [facility] SYSTEMAST32<=41 U/L110/12/2024 8:20 AM [facility] ALT33<=40 U/L110/12/2024 8:20 AM [facility] BILIRUBIN,TOTAL1.10.3 - 1.2 mg/dL08/11/2025 8:20 AM [facility] SYSTEMEGFR Non-Race Dependent>90>=60 ml/min/1.73sq.m110/12/2024 8:20 AM [facility] SYSTEMComment: eGFR not reported due to non-numeric value for Creatinine. Reported eGFR is based on the CKD-EPI 2020 equation that does not use a race coefficient. Specimen (Source)Anatomical Location / LateralityCollection Method / Volume Collection TimeReceived TimeBloodVenous blood / UnknownVenipuncture / Unknown 08/11/2025 7:58 AM EST08/11/2025 8:00 AM EST Narrative Authorizing ProviderResult TypeResult StatusMaphilippe NAM BLOOD ORDERABLESFinal ResultPerforming OrganizationAddressCity/State/ZIP CodePhone Number [facility] [address] [place] [address], * ECG 12 lead (08/11/2025 7:49 AM EST)Specimen (Source)Anatomical Location / LateralityCollection Method / VolumeCollection TimeReceived Time08/11/2025 7:49 AM EST Narrative [facility] - 08/11/2025 11:08 AM EST Authorizing ProviderResult TypeResult StatusMaphilippe Pantoja MDECG ORDERABLES Final ResultPerforming OrganizationAddressCity/State/ZIP CodePhone Number [facility] * X-ray ankle right minimum 3 views [...] Relevant to Health Maintenance Insurance * Guarantor: [id number] TypeRelation to PatientDate of BirthMarshfield Medical Center/H[facility] Eau ClaireBilling AddressCorporateEmployer * Guarantor: Bishop [place] TypeRelation to PatientDate of PhoneBilling AddressCorporateOther [facility] [place] [address] [place] [address] * Guarantor: MILKA Abhijeetjavier TypeRelation to PatientDate of BirthPhone Billing AddressCorporateEmployer * Guarantor: [employer]Account TypeRelation to PatientDate of BirthPhone Billing AddressCorporateEmployer Advance Directives * Full Code (Latest Code Status on File) Date ActivatedDate InactivatedComments03/04/2021 9:32 AM03/10/2021 10:20 PM * Full Code Date ActivatedDate InactivatedComments01/16/2018 1:54 PM01/17/2018 3:11 PM Care Teams Team MemberRelationshipSpecialtyStart DateEnd Date Cisco Blanc DO [address] [facility], [place] [address] PCP - GeneralFamily Wenezaei01/21/25
--- OUTSIDE RECORDS SUMMARY | 2025-08-14 11:06 | XMS_ITS | Clinical Summary ---
Author Organization [facility] Address [address] [place] [address] Care Team Providers Care Lockstitch Collar Setter Name Role Phone Tyson Fonseca MD Primary Care Provider [phone] Vivian Brady MD Unavailable [phone] Vivian Brady MD Unavailable [phone] Allergies No known active allergies Medications MedicationSigDispense [...] as needed. 60 tablet /Discontinued Encounters DateTypeDepartmentCare YyhmZgtkftclhll69/22/2025Telephone Colorectal Surgery [address] [phone] Lydia Drake PA-C Patient Oyhfcj1008/11/2025Refill Colorectal Surgery [address] [address] Lydia Drake PA-C Refill Evlwkxy9707/02/2025 Patient Msg Colorectal Surgery [address] [address] Lydia Drake PA-C Follow up from visit vjqdnitxd76/10/2025 12:08 PM EST - 07/01/2025 6:26 PM [facility] Emergency [facility] Department [address] [place] [address] Jonh Bethea MD [facility] Discharge Disposition: Home07/01/2025 11:00 AM ESTOffice Visit Colorectal Surgery [address] [address] Lydia Drake PA-C Constipation, unspecified constipation type (Primary Dx); Rectal spasm; Chronic rectal pain; Generalized abdominal pain; Difficulty breathing; Chest zmwkqptall82/10/9740Lbwjll75/10/2025 Patient Msg Colorectal Surgery [address] [address] Lydia Drake PA-C 06/28/20252426Kkemph45/06/2025Telephone Colorectal Surgery [address] [address] Suma Navarrete DO Patient Yjbeaw7006/26/2025Transcribe Orders [place] [address] Vviian Brady MD Other specified symptoms and signs involving the digestive system and abdomen (Primary Dx); Outlet dysfunction constipation; Other specified disorders of npmwiy0605/21/2025 Patient Msg Colorectal Surgery [address] [address] Lydia Drake PA-C Appointment Requestfrom Last 3 Months Social History Tobacco UseTypesPacks/DayYears UsedDateSmoking Tobacco: NeverSmokeless Tobacco: Never Tobacco Cessation:Counseling Given: Not Answered Area Deprivation IndexAnswerDate RecordedNational Score (1-100), lower number is lower eyqu973502/28/2025State Score (1-10), lower number is lower umxr87202/28/2025 Data from: https://www.neighborhoodatlas.[facility]/. Last address used for eijglqtesfr076 [address]/28/2025Sex and Gender InformationValueDate RecordedSex Assigned at CzjcyCxcf98/17/2025 4:03 PM EDTLegal RnuOhzu3011/11/2015 1:48 PM EDTGender DazmjflxMtko29/17/2025 4:03 PM EDTSexual OrientationStraight 03/07/2025 4:03 PM EDT Last Filed Vital Signs Vital SignReadingTime TakenCommentsBlood Mvcevuiy548/9611 5:30 PM EST Xiwld806807/01/2025 6:00 PM LWIVrjjcnzxxwx52.1 ??C (97 ??F)07/01/2025 12:15 PM EST Respiratory Slmt083808/31/2024 12:15 PM ESTOxygen Qzoywitatx132%07/01/2025 6:00 PM ESTInhaled Oxygen Concentration--Bkbrko65.5 kg (162 lb)07/01/2025 10:57 AM EST Lbmdky030.3 cm (5' 9 )07/01/2025 10:57 AM ESTBody Mass Index23.9211/05/2025 10:57 AM EST Plan of Treatment Health MaintenanceDue DateLast DoneCommentsAnxiety Dbcobqefs73/14/1987Depression Tjdabipsp76/14/1987HIV Rzoilpjjc39/14/1987Hepatitis B Vaccine (1 of 3 - 19+ 3- dose series)1987CT Obwbqqeuqisy29/14/2014Cologuard (FIT-DNA)2013 Fecal Occult Blood09/04/20132966Rfsauxosfyksh30/14/2014Pneumococcal Vaccine: 50+ (1 of 1 - PCV)2018Shingrix Vaccine (1 of 2)09/04/20188400Jqioxitrbep70/28/2025 02/17/2024olorectal Cancer Muffntyvy80/28/2025ovid-19 Vaccine ( season), 12/08/2020, 11/18/2020Influenza Vaccine (#1) , 04/06/2020, 06/07/2019Diabetes Oqwjuzmny41/21/2028 08/11/2025, 07/01/2025, 12/10/2024, Additional history existsLipid Screening , 07/22/2022rostate Cancer Screening Lrijuggjar16/21/2030 12/10/2024DTaP,Tdap,Td Vaccine (3 - Td or Tdap), 10/27/2013 RSV Vaccine (1 - 1-dose 75+ series)2043Hepatitis C ScreeningCompleted 09/26/2020, 12/19/2019, 12/19/2019, Additional history exists Procedures Procedure NamePriorityDate/TimeAssociated DiagnosisCommentsHIGH SENSITIVITY TROPONIN T (THIRD) 3 HRS AFTER SJPUXYEQRCC63/10/2025 5:55 PM EST ED BG VENOUS/LAB ERSZNABwkysiq20/10/2025 4:56 PM EST HIGH SENSITIVITY TROPONIN T (SECOND)STAT108/31/2024 4:[address] ABD/PEL W UUEYYLFFF55/10/2025 4:37 PM EST MRI LUMBAR SPINE WO/W NPRTFKLPM59/10/2025 3:48 PM EST MRI THORACIC SPINE WO/W ZZTBACYXY85/10/2025 3:48 PM EST MRI CERVICAL SPINE WO/W LVTLIVCRA10/10/2025 3:48 PM EST HIGH SENSITIVITY TROPONIN T (INITIAL)STAT108/31/2024 1:32 PM EST MAGNESIUM UURWHFG48/10/2025 12:43 PM EST COMPREHENSIVE METABOLIC DDCQFNWBI49/10/2025 12:43 PM EST CBC + EXSYGYBI17/10/2025 12:43 PM EST PT ED PATIENT HNSXYHZTKPL15/07/2025 from Last 3 Months Results * HIGH SENSITIVITY TROPONIN T (THIRD) 3 HRS AFTER INITIAL (07/01/2025 5:55 PM EST)ComponentValueRef RangeTest MethodAnalysis TimePerformed AtPathologist SignatureTNT High Mladzqtftfp01<12 ng/L108/31/2024 6:19 PM ESTMETRO[facility] LABSpecimen (Source)Anatomical Location / LateralityCollection Method / VolumeCollection TimeReceived TimeBloodBLOOD SPECIMEN / UnknownVenipuncture / Ahjiubz9307/01/2025 5:55 PM EST07/01/2025 5:59 PM EST Narrative Authorizing ProviderResult TypeResult StatusAchillfrederic Bethea MDLABORATORYFinal ResultPerforming OrganizationAddressCity/State/ZIP CodePhone Number [facility] [address] * (ABNORMAL) ED BG VENOUS/LAB PANELS (07/01/2025 4:56 PM EST)ComponentValueRef RangeTest MethodAnalysis TimePerformed AtPathologist SignaturePotassium (POCT) 3.4(A)3.5 - 5.0 mmol/LED [facility] HospitalCollection Itvh7161ZQ [facility] HospitalFIO221.0%ED TriHealthpecimen (Source)Anatomical Location / LateralityCollection Method / VolumeCollection TimeReceived Time07/01/2025 4:56 PM EST Narrative [facility] - 07/01/2025 4:56 PM EST Meter ID:ED ABL2 Location:ED [facility], [address] [place] [address], [facility] Authorizing ProviderResult TypeResult StatusAchiayanna Bethea MDEMERGENCY DEPTFinal ResultPerforming OrganizationAddressCity/State/ZIP CodePhone Number [facility] ED [address] * HIGH SENSITIVITY TROPONIN T (SECOND) (07/01/2025 4:44 PM EST)ComponentValueRef RangeTest MethodAnalysis TimePerformed AtPathologist SignatureTNT High Fhexxzeasxm68<12 ng/L108/31/2024 5:22 PM ESTTOGUS VA MED[facility]ENTER MAIN LABSpecimen (Source)Anatomical Location / LateralityCollection Method / VolumeCollection TimeReceived TimeBloodBLOOD SPECIMEN / UnknownVenipuncture / Tngytdh4707/01/2025 4:44 PM EST07/01/2025 5:00 PM EST Narrative Authorizing ProviderResult TypeResult StatusJohn Bethea MDLABORATORYFinal ResultPerforming OrganizationAddressCity/State/ZIP CodePhone Number [facility] [address] [place] [address], * CT ABD/PEL W IVCON (07/01/2025 4:37 PM EST)Anatomical RegionLateralityModality AbdomenComputed TomographySpecimen (Source)Anatomical Location / Laterality Collection Method / VolumeCollection TimeReceived Time07/01/2025 4:37 PM EST Impressions 07/01/2025 5:27 PM EST IMPRESSION: No acute process in the abdomen/pelvis. ??Specifically, no bowel obstruction as queried. Travel Sales Consultant: EB ?? Transcribe Date/Time: Jul 01 2025 ??4:50P Dictated by : KIEL LUKE MD This examination was interpreted and the report reviewed and electronically signed by: ROMULO COLVIN MD on Jul 01 2025 ??5:25PM ??EST Narrative 07/01/2025 5:27 PM EST * * *Final Report* * * DATE OF EXAM: Jul 01 2025 ??4:37PM ?? [facility] ?? 0530 ??- ??CT ABD/PEL W [...] images: No additional findings. Procedure Note Provider, [facility] [place] - 07/01/2025 * * *Final Report* * * DATE OF EXAM: Jul 01 2025 4:37PM [facility] 0530 - CT ABD/PEL W IVCON [...] abdomen/pelvis. Specifically, no bowel obstruction as queried. Travel Sales Consultant: EB Transcribe Date/Time: Jul 01 2025 4:50P [...] PM ??via verbal communication. --END OF FINDING-- Travel Sales Consultant: EB ?? Transcribe Date/Time: Jul 01 2025 [...] renal cyst. ??No dilated bowel within the lxpul-on-teis. CERVICAL: Counting reference: ??Craniocervical junction. ?? Anatomic [...] are normal in appearance. Procedure Note Provider, [facility] - 07/01/2025 * * *Final Report* * * DATE OF EXAM: Jul 01 2025 3:47PM [facility] 0304 - MRI LUMBAR SPINE WO/W [...] renal cyst. No dilated bowel within the kxcte-lg-tvtp. CERVICAL: Counting reference: Craniocervical junction. Anatomic Variants:None. [...] PM via verbal communication. --END OF FINDING-- Travel Sales Consultant: EB Transcribe Date/Time: Jul 01 2025 3:48P [...] PM ??via verbal communication. --END OF FINDING-- Travel Sales Consultant: EB ?? Transcribe Date/Time: Jul 01 2025 [...] renal cyst. ??No dilated bowel within the yuwxj-va-ggno. CERVICAL: Counting reference: ??Craniocervical junction. ?? Anatomic [...] are normal in appearance. Procedure Note Provider, [facility] - 07/01/2025 * * *Final Report* * * DATE OF EXAM: Jul 01 2025 3:47PM [facility] 0326 - MRI THORACIC SPINE WO/W [...] renal cyst. No dilated bowel within the goqkw-xm-lrcv. CERVICAL: Counting reference: Craniocervical junction. Anatomic Variants:None. [...] PM via verbal communication. --END OF FINDING-- Travel Sales Consultant: EB Transcribe Date/Time: Jul 01 2025 3:48P [...] PM ??via verbal communication. --END OF FINDING-- Travel Sales Consultant: PSCB ?? Transcribe Date/Time: Jul 01 2025 [...] renal cyst. ??No dilated bowel within the dezbd-sg-ootl. CERVICAL: Counting reference: ??Craniocervical junction. ?? Anatomic [...] are normal in appearance. Procedure Note Provider, [facility] - 07/01/2025 * * *Final Report* * * DATE OF EXAM: Jul 01 2025 3:47PM [facility] 0298 - MRI CERVICAL SPINE WO/W [...] renal cyst. No dilated bowel within the lzytx-tf-lbiz. CERVICAL: Counting reference: Craniocervical junction. Anatomic Variants:None. [...] PM via verbal communication. --END OF FINDING-- Travel Sales Consultant: EB Transcribe Date/Time: Jul 01 2025 3:48P Dictated by : ZAIRA PEDROZA MD This examination was interpreted and the report reviewed and electronically signed by: TALYA YOO MD on Jul 01 2025 5:12PM EST Authorizing ProviderResult TypeResult StatusAchilles Bebos MDMRI-PAMAFinal Result * (ABNORMAL) HIGH SENSITIVITY TROPONIN T (INITIAL) (07/01/2025 1:32 PM EST) ComponentValueRef RangeTest MethodAnalysis TimePerformed AtPathologist SignatureTNT High Mehqivdbpyg37(H)<12 ng/L108/31/2024 2:08 PM ESTTOGUS VA [facility] MAIN LABSpecimen (Source)Anatomical Location / LateralityCollection Method / VolumeCollection TimeReceived TimeBloodBLOOD SPECIMEN / Unknown Venipuncture / Gkwahlm0907/01/2025 1:32 PM EST07/01/2025 1:48 PM EST Narrative Authorizing ProviderResult TypeResult StatusAchilles [place] MDLABORATORYFinal ResultPerforming OrganizationAddressCity/State/ZIP CodePhone Number [facility] [address] [place] [address], * MAGNESIUM (07/01/2025 12:43 PM EST)ComponentValueRef RangeTest MethodAnalysis TimePerformed AtPathologist SignatureMagnesium1.91.7 - 2.3 mg/dL07/01/2025 1:16 PM [facility] LABSpecimen (Source)Anatomical Location / LateralityCollection Method / VolumeCollection TimeReceived TimeBloodBLOOD SPECIMEN / UnknownVenipuncture / Nvvgiqn5507/01/2025 12:43 PM EST07/01/2025 12:49 PM EST Narrative Authorizing ProviderResult TypeResult StatusAchillfrederic Rosasjoaquim NHLABORATORYFinal ResultPerforming OrganizationAddressCity/State/ZIP CodePhone Number [facility] [address] [place] [address], * (ABNORMAL) COMPREHENSIVE METABOLIC PANEL (07/01/2025 12:43 PM EST)Component ValueRef RangeTest MethodAnalysis TimePerformed AtPathologist Signature Protein, Total8.3(H)6.3 - 8.0 g/dL07/01/2025 1:16 PM [facility] LABAlbumin5.0(H)3.9 - 4.9 g/dL07/01/2025 1:16 PM [facility] Calcium, Total10.3(H)8.5 - 10.2 mg/dL07/01/2025 1:16 PM [facility] LABBilirubin, Total0.80.2 - 1.3 mg/dL07/01/2025 1:16 PM [facility] LABAlkaline Bxwsibgktow462(H)38 - 113 U/L108/31/2024 1:16 PM EST [facility] RXIIPE2887 - 40 U/L108/31/2024 1:16 PM [facility] LABComment:Results may be falsely increased due to interference from hemolysis. Suggest reorder as clinically indicated.VIF8687 - 54 U/L 07/01/2025 1:16 PM [facility] LABComment:Results may be falsely increased due to interference from hemolysis. Suggest reorder as clinically i ndicated.Wkldban6038 - 99 mg/dL07/01/2025 1:16 PM [facility] Comment: The [place] Diabetes Association (ADA) provides guidance for cutoff [...] Standards of Medical Care in Diabetes 2016, [place] [employer]. Diabetes Care. 2016.39(Suppl 1). ISB820 - 24 mg/dL07/01/2025 1:16 PM [facility] LABCreatinine0.72 (L)0.73 - 1.22 mg/dL07/01/2025 1:16 PM [facility] QODXmajsi121406 - 144 mmol/L108/31/2024 1:16 PM [facility] UFTDubhkbeps84/10/2025 1:16 PM [facility] LABComment:Unable to assay due to interference from hemolysis. Suggest reorder as clinically indicated.Ozuwtvjm06069 - 107 mmol/L108/31/2024 1:16 PM [facility] XWLCM913(L)22 - 30 mmol/L 07/01/2025 1:16 PM [facility] LABAnion Gap19(H)8 - 15 mmol/L 07/01/2025 1:16 PM [facility] LABEstimated Glomerular Filtration Yoot785>=60 mL/min/1.73m 07/01/2025 1:16 PM [facility] LABComment:Estimated Glomerular Filtration Rate (eGFR) is calculated [...] VolumeCollection TimeReceived TimeBloodBLOOD SPECIMEN / UnknownVenipuncture / Tbkftkk3007/01/2025 12:43 PM EST07/01/2025 12:49 PM EST Narrative Authorizing ProviderResult TypeResult StatusAchilles [place] CHAVISLABORATORYFinal ResultPerforming OrganizationAddressCity/State/ZIP CodePhone Number [facility] [address] * (ABNORMAL) COMPLETE BLOOD COUNT AND DIFFERENTIAL (07/01/2025 12:43 PM EST) ComponentValueRef RangeTest MethodAnalysis TimePerformed AtPathologist SignatureWBC8.343.70 - 11.00 k/uL07/01/2025 12:57 PM [facility] LABRBC4.744.20 - 6.00 m/uL07/01/2025 12:57 PM [facility] Sdgnfxsgdy10.413.0 - 17.0 g/dL07/01/2025 12:57 PM [facility] Tpwgxiwwca67.639.0 - 51.0 %07/01/2025 12:57 PM [facility] LABMCV 89.980.0 - 100.0 fL07/01/2025 12:57 PM [facility] MRMCDL46.526.0 - 34.0 pg07/01/2025 12:57 PM [facility] WYXJURG90.2(H)30.5 - 36.0 g/dL07/01/2025 12:57 PM [facility] LABRDW-CV11.611.5 - 15.0 %07/01/2025 12:57 PM [facility] LABPlatelet Nqktb313152 - 400 k/uL07/01/2025 12:57 PM [facility] TWMPIM24.69.0 - 12.7 fL 07/01/2025 12:57 PM [facility] LABNeutrophils %58.7%07/01/2025 12:57 PM [facility] LABAbs Neut4.901.45 - 7.50 k/uL07/01/2025 12:57 PM [facility] LABLymphocytes %26.9%07/01/2025 12:[address] [facility] LABAbs Lymph2.241.00 - 4.00 k/uL07/01/2025 12:[address] [facility] LABMonocytes %9.2%07/01/2025 12:57 PM [facility] LABAbs Mono0.77<0.87 k/uL07/01/2025 12:57 PM [facility] LABEosinophils %4.0%07/01/2025 12:57 PM [facility] LABAbs Eosin0.33<0.46 k/uL07/01/2025 12:57 PM [facility] LABBasophils % 0.7%07/01/2025 12:57 PM [facility] LABAbs Baso0.06<0.11 k/uL 07/01/2025 12:57 PM [facility] LABImmature Granulocytes %0.5% 07/01/2025 12:57 PM [facility] LABAbs Immature Gran0.04<0.10 k/uL07/01/2025 12:57 PM [facility] LABNRBC0.0/100 WBC07/01/2025 12:57 PM [facility] LABAbsolute nRBC<0.01<0.01 k/uL07/01/2025 12:57 PM [facility] LABDiff ZxckXern87/10/2025 12:[address] [facility] LABSpecimen (Source)Anatomical Location / Laterality Collection Method / VolumeCollection TimeReceived TimeBloodBLOOD SPECIMEN / UnknownVenipuncture / Xqgyudt2807/01/2025 12:43 PM EST07/01/2025 12:[address] [facility] Authorizing ProviderResult TypeResult StatusAchilles [place] CHAVISLABORATORYFinal ResultPerforming OrganizationAddressCity/State/ZIP CodePhone Number [facility] [address] [place] [address], * PT ED PATIENT INFORMATION (06/28/2025)Specimen (Source)Anatomical [...] SAccjavier TypeRelation to PatientDate of BirthPhone Billing AddressPersonal/XxesepJudu34/14/1971 [address] [place] [address] Care Teams Team MemberRelationshipSpecialtyStart DateEnd Tyson Fonseca MD PCP - GeneralFamily Medicine11/11/15 Vivian Brady MD [address] [employer] [address] [address] Gastroenterology01/16/25 Vivian Brady MD [address] [employer] [address] [address] WnwhsgmndZnsglvytafnokntn22/5/25
--- OUTSIDE RECORDS SUMMARY | 2025-08-14 11:06 | XMS_ITS | Encounter Summary ---
Author Organization [facility] Address [address] [place] [address] Care Team Providers Care Metals Analyst Name Role Phone Tyson Fonseca MD Primary Care Provider [phone] Vivian Brady MD Unavailable [phone] Vivian Brady MD Unavailable [phone] Source Comments In the event this information is protected by the Federal Confidentiality of Alcohol and Drug AbusePatient Records regulations: The Federal rules restrict any use of the information to criminally investigate or prosecute any alcohol or drug abuse patient.[facility] Reason for Visit * ReasonOnset DateCommentsRefill Tudwcad5508/11/2025 Encounter Details DateTypeDepartmentCare Team (Latest Contact Info)Eyumtpfclop95/21/2025Refill Colorectal Surgery [address] [phone] Lydia Drake PA-C [address] [place], [place] [phone] Refill Request Social History Tobacco UseTypesPacks/DayYears UsedDateSmoking Tobacco: NeverSmokeless Tobacco: NeverArea Deprivation IndexAnswerDate RecordedNational Score (1-100), lower number is lower nydg713402/28/2025State Score (1-10), lower number is lower risk9 02/28/2025Data from: https://www.neighborhoodatlas.medicine.[facility].edu/. Last address used for s[address]deh[address]02/28/2025Sex and Gender InformationValueDate RecordedSex Assigned at VqvwiOzhf31/17/2025 4:03 PM EDT Legal MnwSvbl4311/11/2015 1:48 PM EDTGender YvqwxbrfTuly26/17/2025 4:03 PM EDT Sexual IrrsnepcjgyFicfjbpe26/17/2025 4:03 PM EDTdocumented as of this encounter Plan of Treatment Not on file documented as of this encounter Visit Diagnoses Diagnosis Rectal spasm Anal spasm documented in this encounter Care Teams Team MemberRelationshipSpecialtyStart DateEnd Date Tyson Fonseca MD PCP - GeneralFamily Medicine11/11/15 Vivian Brady MD [address] [employer] [address] [place] [id number] Gastroenterology01/16/25 Vivian Brady MD [address] [employer] [address] [place] [address] AozuoywlyGclklniyqweyrhac42/5/25documented as of this encounter
--- OUTSIDE RECORDS SUMMARY | 2025-08-14 11:06 | XMS_ITS | Encounter Summary ---
Demographics Address [address] [facility] [address] [place] [id number] Home Phone Mobile Phone Email Address Email Address Preferred Language ENG Marital Status Single Sikhism Affiliation Unknown Race White Ethnic Group or Author Organization [facility] Address [address] [place] [address] Care Team Providers Care Printed Circuit Boards Inspector Name Role Phone Tyson Fonseca MD Primary Care Provider [phone] Vivian Brady MD Unavailable [phone] Vivian Brady MD Unavailable [phone] Source Comments In the event this information is protected by the Federal Confidentiality of Alcohol and Drug AbusePatient Records regulations: The Federal rules restrict any use of the information to criminally investigate or prosecute any alcohol or drug abuse patient.[facility] Reason for Visit * ReasonCommentsPatient Update Encounter Details DateTypeDepartmentCare Team (Latest Contact Info)Xqfsqmtncsc48/22/2025Telephone Colorectal Surgery [address] [phone] Lydia Drake PA-C [address] [place], [place] [phone] Patient Update Social History Tobacco UseTypesPacks/DayYears UsedDateSmoking Tobacco: NeverSmokeless Tobacco: NeverArea Deprivation IndexAnswerDate RecordedNational Score (1-100), lower number is lower iszx978202/28/2025State Score (1-10), lower number is lower risk9 02/28/2025Data from: https://www.neighborhoodatlas.medicine.[facility]/. Last address used for [address]/28/[birth year]25Sex and Gender InformationValueDate RecordedSex Assigned at KjpwxXhaq97/17/2025 4:03 PM EDT Legal OjwYvjf3211/11/2015 1:48 PM EDTGender YnjqdjdrChni49/17/2025 4:03 PM EDT Sexual YrxezfessblAsxurqfs84/17/2025 4:03 PM EDTdocumented as of this encounter Miscellaneous Notes * Telephone Encounter - Lydia Drake PA-C - 08/12/2025 11:09 AM EST Called Chai back. He advised he just completed the first xray and is awaiting an uber bulk truck driver. He got so dizzy after his Xray today that he was placed in a wheelchair. He says the dizziness is from the pain. When taking the sitz marker test yesterday he passed out due to pressure in his rectum. He got evaluated in the ED and was diagnosed with a facial fracture but nothing else acute to explain the pain. He said this is the series of events that happens: Pressure> dizzy> hyperventilate> pass out I asked if he has followed up with his PCP in regards to the dizziness and pain. He said he has andhis PCP said he cannot do anything. He also says he cannot prescribe anything for his anxiety. His PCP says he is not GI and needs to see GI. I asked about GI in which he has followed up but continues to prescribe laxatives that give him diarrhea. I advised that is what can help relieve pressure and allow him to have a BM. He doesn't thinkthis helps. I asked if he has seen a psychiatrist or psychologist in regards to his anxiety. He said he has andthat they refuse to see him. However, he says they prescribed antidepressants that make him suicidal. He says no one will see him for his anxiety He went to PFPT and was unable to do the exercises. He says these don't help him because his sphincter would not open up. I explained it can take months before an individual can notice improvement with PFPT. I advised the colorectal surgeon says if he cannot complete the testing ordered ( sitz, defo) that surgery will not be considered. I explained that he can do an enema or suppository while completing the sitz marker test. But he says they just make him pass out. I advised we need him to try to do the sitz marker test without laxatives but if needed he needs to document the date, time and what he took as well as completing the x rays so we can see. I explained that he needs to see someone for his anxiety, go back to PFPT, go back to his GI, follow up with PCP for dizziness and if needed to go to the ED. That multiple different departments need to work together. I explained that colorectal surgery cannot treat his anxiety. I explained everything above multiple times. He kept saying no one will help him and he continues to get dizzy. At the end of the call his uber was there and abruptly had to leave. Lydia Drake PA-C * Telephone Encounter - Danna Nugent - 08/12/2025 10:30 AM EST Chai Russell [phone], experiencing constipation so bad its causing him to pass out. He's scheduled to have sitz marker test this week. documented in this encounter Plan of Treatment Not on file documented as of this encounter Visit Diagnoses Not on filedocumented in this encounter Care Teams Team MemberRelationshipSpecialtyStart DateEnd Date Tyson Fonseca MD PCP - GeneralFakyly Medicine11/11/15 Vivian Brady MD [address] [place] [address] Gastroenterology01/16/25 Vivian Brady MD [address] [place] [address] AisyexemaKfptrumnnklzgtwf46/5/25documented as of this encounter
== END 2025-08-14 11:00 | disposition home or self-care (01) ==
LOC: RAD 11:02
PROVIDERS: PCP Family Medicine
DX: K59.00 Constipation, unspecified (principal)
CPT/HCPCS: 74018

== ENCOUNTER 2025-08-14 11:12 | Emergency (ER) | payer OTHER, SELFPAY ==
--- OUTSIDE RECORDS SUMMARY | 2025-08-11 07:30 | XMS_ITS | Encounter Summary ---
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 EST)ComponentValueRef RangeTest MethodAnalysis TimePerformed AtPathologist SignatureFREE T40.720.61 - 1.60 ng/dL08/11/2025 8:40 AM [facility]ALTSH2.29 0.49 - 4.67 uIU/mL08/11/2025 8:40 AM [facility] Specimen (Source)Anatomical Location / LateralityCollection Method / Volume Collection TimeReceived TimeBloodVenous blood / UnknownVenipuncture / Unknown 08/11/2025 7:58 AM EST08/11/2025 8:00 AM EST Narrative Authorizing ProviderResult TypeResult StatusTere Pantoja MDLAB BLOOD ORDERABLESFinal ResultPerforming OrganizationAddressCity/State/[place] [address], [place] * Ethanol (08/11/2025 7:58 AM EST)ComponentValueRef RangeTest MethodAnalysis TimePerformed AtPathologist SignatureETHANOL<0.01<=0.08 g/dL08/11/2025 8:20 AM [facility]Comment: This report is intended for use in clinical monitoring or management of patients. Specimen (Source)Anatomical Location / LateralityCollection Method / Volume Collection TimeReceived TimeBloodVenous blood / UnknownVenipuncture / Unknown 08/11/2025 7:58 AM EST08/11/2025 8:00 AM EST Narrative Authorizing ProviderResult TypeResult StatusTere Pantoja MDLAB BLOOD ORDERABLESFinal ResultPerforming OrganizationAddressty/State/ZIP CodePhone Number [address] [address], [place] * Magnesium (08/11/2025 7:58 AM EST)ComponentValueRef RangeTest MethodAnalysis TimePerformed AtPathologist SignatureMAGNESIUM2.21.8 - 2.6 mg/dL08/11/2025 8:20 AM [facility] ([facility])Anatomical Location / LateralityCollection Method / VolumeCollection TimeReceived Time BloodVenous blood / UnknownVenipuncture / Fnoqjde3008/11/2025 7:58 AM EST 08/11/2025 8:00 AM EST Narrative Authorizing ProviderResult TypeResult StatusTere Pantoja MDLAB BLOOD ORDERABLESFinal ResultPerforming OrganizationAddressCity/State/ZIP CodePhone Number [address] [place] [address], [place] * (ABNORMAL) Lipase (08/11/2025 7:58 AM EST)ComponentValueRef RangeTest Method Analysis TimePerformed AtPathologist ZtustvuwrCADKZE84(H)17 - 40 U/L110/12/2024 8:17 AM [facility]pecimen (Source)Anatomical Location / LateralityCollection Method / VolumeCollection TimeReceived Time BloodVenous blood / UnknownVenipuncture / Ajgcrzi7208/11/2025 7:58 AM EST 08/11/2025 8:00 AM EST Narrative Authorizing ProviderResult TypeResult StatusTere NAM BLOOD ORDERABLESFinal ResultPerforming OrganizationAddressCity/State/ZIP CodePhone Number [address] [place] [address], [place] * (ABNORMAL) Lactate w/ Reflex (08/11/2025 7:58 AM EST)ComponentValueRef Range Test MethodAnalysis TimePerformed AtPathologist SignatureLACTATE W/REFLEX5.1 (HH)0.4 - 2.0 mmol/L110/12/2024 8:44 AM [facility] Specimen (Source)Anatomical Location / LateralityCollection Method / Volume Collection TimeReceived TimeBloodVenous blood / UnknownVenipuncture / Unknown 08/11/2025 7:58 AM EST08/11/2025 8:00 AM EST Narrative Authorizing ProviderResult TypeResult StatusTere Pantoja MDLAB BLOOD ORDERABLESFinal ResultPerforming OrganizationAddressCity/State/ZIP CodePhone Number [address] [place] [address], [place] * (ABNORMAL) Comprehensive metabolic panel (08/11/2025 7:58 AM EST)Component ValueRef RangeTest MethodAnalysis TimePerformed AtPathologist SignatureSODIUM [id number] - 146 mmol/L110/12/2024 8:20 AM [facility] POTASSIUM4.63.5 - 5.0 mmol/L110/12/2024 8:20 AM ESTCLEVEL[facility] PO[facility] HOSPITALCHLORIDE10598 - 109 mmol/L110/12/2024 8:20 AM [facility]ITALCARBON PNPUEVN14(L)22 - 32 mmol/L110/12/2024 8:20 AM EST [facility] HOSPITALANION PKT255 - 15 mmol/L110/12/2024 8:20 AM [facility]ITALBLOOD UREA WFANKKVF39 - 23 mg/dL 08/11/2025 8:20 AM [facility]ITALCREATININE0.930.70 - 1.20 mg/dL08/11/2025 8:20 AM [facility]ITALComment: METHOD TRACEABLE TO IDMS WVTCJMJWDJREYQO467(H)65 - 99 mg/dL08/11/2025 8:20 AM [facility]ITALCALCIUM9.68.5 - 10.5 mg/dL08/11/2025 8:20 AM [facility]ITALTOTAL PROTEIN7.86.0 - 8.0 g/dL 08/11/2025 8:20 AM [facility]ITALALBUMIN4.73.2 - 5.3 g/dL08/11/2025 8:20 AM [facility]ITALALKALINE LCEMAAMWFOR98986 - 130 U/L110/12/2024 8:20 AM [facility]ITALAST32<=41 U/L110/12/2024 8:20 AM [facility] ALT33<=40 U/L110/12/2024 8:20 AM [facility] BILIRUBIN,TOTAL1.10.3 - 1.2 mg/dL08/11/2025 8:20 AM [facility] HOSPITALEGFR Non-Race Dependent>90>=60 ml/min/1.73sq.m110/12/2024 8:20 AM [facility]ITALComment: eGFR not reported due to non-numeric value for Creatinine. Reported eGFR is based on the CKD-EPI 2020 equation that does not use a race coefficient. Specimen (Source)Anatomical Location / LateralityCollection Method / Volume Collection TimeReceived TimeBloodVenous blood / UnknownVenipuncture / Unknown 08/11/2025 7:58 AM EST08/11/2025 8:00 AM EST Narrative Authorizing ProviderResult TypeResult StatusTere NAM BLOOD ORDERABLESFinal ResultPerforming OrganizationAddressCity/State/ZIP CodePhone Number [address] [place] [address], [place] * APTT (08/11/2025 7:58 AM EST)ComponentValueRef RangeTest MethodAnalysis Time Performed AtPathologist ZtngvxtylAOBD4219 - 37 sec08/11/2025 8:11 AM EST [facility] (Source)Anatomical Location / LateralityCollection Method / VolumeCollection TimeReceived TimeBloodVenous blood / UnknownVenipuncture / Jtrixtn3008/11/2025 7:58 AM EST08/11/2025 8:00 AM EST Narrative Authorizing ProviderResult TypeResult StatusTere NAM BLOOD ORDERABLESFinal ResultPerforming OrganizationAddressCity/State/ZIP CodePhone Number [address] [place] [address], [place] * Protime & INR (08/11/2025 7:58 AM EST)ComponentValueRef RangeTest Method Analysis TimePerformed AtPathologist BnqcfdlwdRJXHOQZ05.89.8 - 13.2 sec 08/11/2025 8:11 AM ESTCLEVELAND CLINIC SOU[facility] POINTE HOSPITALINR1.00.9 - 1.2 08/11/2025 8:11 AM [facility] (Source) Anatomical Location / LateralityCollection Method / VolumeCollection Time Received TimeBloodVenous blood / UnknownVenipuncture / Pucodid2308/11/2025 7:58 AM EST08/11/2025 8:00 AM EST Narrative Authorizing ProviderResult TypeResult StatusTere NAM BLOOD ORDERABLESFinal ResultPerforming OrganizationAddressty/State/ZIP CodePhone Number [address] [place] [address], [place] * (ABNORMAL) CBC auto differential (08/11/2025 7:58 AM EST)ComponentValueRef RangeTest MethodAnalysis TimePerformed AtPathologist SignatureWBC6.34 - 11 10^9/L1/ 8:04 AM ESTPROPROVIDENCE LITTLE [facility] CAMPUSRBC Count4.70 4.1 - 5.7 10^12/L110/12/2024 8:04 AM [facility] Dfkzyxhedx03.113 - 17 g/dL08/11/2025 8:04 AM ESTPROMEDIENCINO HOSPITAL MEDICAL CENTERHematocrit42.839 - 50 %08/11/2025 8:04 AM [facility]ERV9180 - 100 fL08/11/2025 8:04 AM [facility]ENTERH32.127 - 34 pg08/11/2025 8:04 AM [facility]ENTERHC35.332 - 36 g/dL08/11/2025 8:04 AM [facility]OS[facility]ITALRDW12.711.5 - 15 %08/11/2025 8:04 AM [facility]OSPITALPlatelet Vqozk506238 - 450 10^9/L110/12/2024 8:04 AM EST [facility]ITALMPV8.97 - 12 fL08/11/2025 8:04 AM EST [facility]OS[facility]ITALNeutrophils %39.0%08/11/2025 8:04 AM EST [facility] HOSPITALLymphocytes %40.5%08/11/2025 8:04 AM EST [facility]OSPITALMonocytes %7.1%08/11/2025 8:04 AM EST [facility] HOSPITALEosinophils %12.5%08/11/2025 8:04 AM EST [facility]ENTERBasophils %0.9%08/11/2025 8:04 AM EST [facility]ICAL CENTERNeutrophils Absolute (A)2.51.5 - 6.6 10^9/L 08/11/2025 8:04 AM ESTPROMEDIENCINO HOSPITAL MEDICAL CENTERLymphocytes Absolute 2.61.0 - 3.5 10^9/L110/12/2024 8:04 AM [facility] Monocytes Absolute0.50.0 - 0.9 10^9/L110/12/2024 8:04 AM [facility]ITALEosinophils Absolute0.8(H)0.0 - 0.4 10^9/L110/12/2024 8:04 AM [facility]ITALBasophils Absolute0.10.0 - 0.2 10^9/L 08/11/2025 8:04 AM [facility]ITALDifferential Type AUTOMATED MOWQTZXMXLGI15/21/2025 8:04 AM [facility]ITALpecimen (Source)Anatomical Location / LateralityCollection Method / VolumeCollection TimeReceived TimeBloodVenous blood / UnknownVenipuncture / Yfmqvrw0408/11/2025 7:58 AM EST08/11/2025 8:00 AM EST Narrative Authorizing ProviderResult TypeResult StatusTere NAM BLOOD ORDERABLESFinal ResultPerforming OrganizationAddressCity/State/ZIP CodePhone Number [phone] [place] [address], * ECG 12 lead (08/11/2025 7:49 AM EST)Specimen (Source)Anatomical Location / LateralityCollection Method / VolumeCollection TimeReceived Time08/11/2025 7:49 AM EST Narrative TRACEMASTERVUE - 08/11/2025 11:08 AM EST Authorizing ProviderResult TypeResult StatusTere LITTLEJOHNG ORDERABLES Final ResultPerforming OrganizationAddressCity/State/ZIP CodePhone Number TRACEMASTERVUE documented in this encounter Visit Diagnoses Diagnosis Vasovagal syncope- Primary Syncope and collapse Closed fracture of right maxillary sinus, initial encounter ([facility]) Closed fracture of right orbital floor, initial encounter ([facility]) Closed fracture of nasal bone, initial encounter documented in this encounter Administered Medications Medication OrderMAR ActionAction DateDoseRateSite iohexoL (OMNIPAQUE) 350 mg iodine/mL injection 100 mL 100 mL, intravenous, Once in imaging, contrast, Starting on 08/11/25 at 0945, For 1 dose, VESICANT (RED) Given08/11/2025 9:52 AM OUD833 mL ketorolac (TORADOL) injection 30 mg 30 mg, intravenous, Once, On 08/11/25 at 1200, For 1 dose, Look-alike/sound-alike medication - verify indication for use. Duration of therapy is not to exceed 5 days. Maximum recommended dose + 120mg/24 hours. Given08/11/2025 12:07 PM EST30 mg LORazepam (ATIVAN) injection 1 mg 1 mg, intravenous, Once, On 08/11/25 at 0753, For 1 dose, Look-alike/sound-alike medication - verify indication for use;IV use requires increased monitoring of HR,BP,Respirations and Pulse Oximetry;For IV-dilute with equal volume PF sod chloride Given08/11/2025 7:57 AM EST1 mg morphine injection 4 mg 4 mg, intravenous, Once, On 08/11/25 at 0804, For 1 dose, Look-alike/sound-alike medication - verify indication for use. Given08/11/2025 8:12 AM EST4 mg ondansetron (PF) (ZOFRAN) injection 4 mg 4 mg, intravenous, Once, On 08/11/25 at 0804, For 1 dose, Intravenous administration preferred to be given over 2-5 minutes. Given08/11/2025 8:13 AM EST4 mg sodium chloride 0.9 % bolus 1,000 mL, intravenous, at 4,000 mL/hr, Administer over 15 Minutes, Once, On 08/11/25 at 0759, For 1 dose New Bag08/11/2025 8:30 AM EST1,000 dI9878 mL/hr sodium chloride 0.9 % flush 10 mL 10 mL, intravenous, As needed, line care, Starting on 08/11/25 at 0945 Given08/11/2025 9:52 AM EST10 mL sodium chloride 0.9 % radiology injection 80 mL, intravenous, Once in imaging, pre/post contrast, Starting on 08/11/25 at 0945, For 1 dose Given08/11/2025 9:51 AM EST80 mLdocumented in this encounter Active and Recently Administered Medications Times are shown in EST.Medication Order/ ketorolac (TORADOL) injection 30 mg (COMPLETED) 30 mg, intravenous, Once, On 08/11/25 at 1200, For 1 dose, Look-alike/sound-alike medication - verify indication for use. Duration of therapy is not to exceed 5 days. Maximum recommended dose + 120mg/24 hours. * 1207 (Given - Provider: Geeta Teague RN) LORazepam (ATIVAN) injection 1 mg (COMPLETED) 1 mg, intravenous, Once, On 08/11/25 at 0753, For 1 dose, Look-alike/sound-alike medication - verify indication for use;IV use requires increased monitoring of HR,BP,Respirations and Pulse Oximetry;For IV-dilute with equal volume PF sod chloride * 0757 (Given - Provider: Ty Espinoza RN) morphine injection 4 mg (COMPLETED) 4 mg, intravenous, Once, On 08/11/25 at 0804, For 1 dose, Look-alike/sound-alike medication - verify indication for use. * 0812 (Given - Provider: Ty Espinoza RN) ondansetron (PF) (ZOFRAN) injection 4 mg (COMPLETED) 4 mg, intravenous, Once, On 08/11/25 at 0804, For 1 dose, Intravenous administration preferred to be given over 2-5 minutes. * 0813 (Given - Provider: Ty Espinoza RN) sodium chloride 0.9 % bolus (COMPLETED) 1,000 mL, intravenous, at 4,000 mL/hr, Administer over 15 Minutes, Once, On 08/11/25 at 0759, For 1 dose * 0830 (New Bag - Provider: Ty Espinoza RN) * 0845 (Stop Bag - Provider: Geeta Teague, DELMIS) sodium chloride 0.9 % bolus 1,000 mL, intravenous, at 984 mL/hr, Administer over 61 Minutes, Once, On 08/11/25 at 0937, For1 dose * 0937 (Not Given - Provider: Geeta Teague, RN - Reason: Alternative prescribed) Medication Order iohexoL (OMNIPAQUE) 350 mg iodine/mL injection 100 mL (COMPLETED) 100 mL, intravenous, Once in imaging, contrast, Starting on 08/11/25 at 0945, For 1 dose, VESICANT (RED) * 0952 (Given - Provider: NGA Braun - Comment: Lot #[id number] 04/02/2028) sodium chloride 0.9 % flush 10 mL 10 mL, intravenous, As needed, line care, Starting on 08/11/25 at 0945 * 0952 (Given - Provider: NGA Braun) sodium chloride 0.9 % radiology injection (COMPLETED) 80 mL, intravenous, Once in imaging, pre/post contrast, Starting on 08/11/25 at 0945, For 1 dose * 0951 (Given - Provider: NGA Braun) documented in this encounter Additional Health Concerns InfectionOnset DateLast IndicatedResolved TimeRespiratory Rule-Out08/11/2025 8:46 AM ESTAssessmentNoted TimePHQ-9 Depression Total Score: 1:04 PM EDTdocumented as of this encounter Care Teams Team MemberRelationshipSpecialtyStart DateEnd Date Cisco Blanc DO [address] [facility], [facility] [place] [address] PCP - GeneralFamily Pnbuhvgg64/21/25documented as of this encounter
[2025-08-14 11:23] VITALS: BP 162/100; PULSE 88; TEMP 36.7; O2SAT 100; BMI 25.8
[2025-08-14] MEDS: ALPRAZOLAM 0.5 MG TABLET 1 MG PO (11:45)
--- OUTSIDE RECORDS SUMMARY | 2025-08-14 11:48 | XMS_ITS | Encounter Summary ---
Author Organization [employer] tem Address [id number] [address] [place] [address] Care Team Providers Care Ironer Name Role Phone Jayashree Cisco Paddy MCLAUGHLIN Primary Care Provider [phone] Encounter Details DateTypeDepartmentCare Team (Latest Contact Info)Pshdtprymvs20/21/2025Travel Social History Tobacco UseTypesPacks/DayYears UsedDateSmoking Tobacco: EggbeaEdndlalepe088 07/23/1987 - 12/20/2018Passive Smoke Exposure: PastSmokeless Tobacco: Never Comments:vape, today Alcohol UseStandard Drinks/WeekCommentsYes0 (1 standard drink = 0.6 oz pure alcohol)OccasionalAHC UtilitiesAnswerDate RecordedIn the past 12 months has the electric, gas, oil, or water [employer] threatened to shut off services in your home?Yes09/11/2024Social Connection and Isolation PanelAnswerDate RecordedIn a typical week, how many times do you talk on the phone with family, friends, or neighbors?Twice a week08/01/2022How often do you get together with friends or relatives?Once a week08/01/2022How often do you attend sikhism or methodist services?Never08/01/2022ctive Member of Clubs or OrganizationsNot on file 08/01/2022How often do you attend meetings of the clubs or organizations you belong to?Never08/01/2022re you , , , , never , or living with a partner?Never xcxjtsh6008/01/2022UDIT-CAnswerDate RecordedQ1: How often do you have a drink containing alcohol?Monthly or less 09/11/2024Q2: How many drinks containing alcohol do you have on a typical day when you are drinking?Patient does not drink09/11/2024Q3: How often do you have six or more drinks on one occasion?Less than rywktnp5909/11/2024Overall Financial Resource Strain (CARDIA)AnswerDate RecordedHow hard is it for you to pay for the very basics like food, housing, medical care, and heating?Very hard12/06/2023 PHQ-2AnswerDate RecordedTotal Rgfka186612/10/2024Fin[facility] [place] of Occupational Health - Occupational Stress QuestionnaireAnswerDate [...] a household?Yes12/06/2023hildcareAnswerDate RecordedDo problems getting child care team lead 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
--- OUTSIDE RECORDS SUMMARY | 2025-08-14 11:48 | XMS_ITS | Encounter Summary ---
Author Organization [facility] tem Address [id number] [address] [place] [address] Care Team Providers Care Flight Attendant Inflight Services Name Role Phone Cisco Blanc DO Primary Care Provider [phone] Reason for Visit * ReasonOnset DateCommentsMed Ewetdh5408/11/2025 Encounter Details DateTypeDepartmentCare Team (Latest Contact Info)Kfmarlqoemq33/21/2025Refill [facility] Physicians Internal Medicine - Family Medicine [address] [place] [id number] Cisco Blanc DO [address] [facility] [place] [address] Social History Tobacco UseTypesPacks/DayYears UsedDateSmoking Tobacco: IlpfiyYcvldcnxur289 07/23/1987 - 12/20/2018Passive Smoke Exposure: PastSmokeless Tobacco: [...] relatives?Once a week12/11/2022How often do you attend presybeterian or gnosticist services?Never08/01/2022ctive Member of Clubs or OrganizationsNot on file 08/01/2022How often do you attend meetings of the clubs or organizations you belong to?Never08/01/2022re you , , , , never , or living with a partner?Never fhfpktd4008/01/2022UDIT-CAnswerDate RecordedQ1: How often do you have a drink containing alcohol?Monthly or less 09/11/2024Q2: How many drinks containing alcohol do you have on a typical day when you are drinking?Patient does not drink09/11/2024Q3: How often do you have six or more drinks on one occasion?Less than nkqtals1709/11/2024Overall Financial Resource Strain (CARDIA)AnswerDate RecordedHow hard is it for you to pay for the very basics like food, housing, medical care, and heating?Very hard12/06/2023 PHQ-2AnswerDate RecordedTotal Yuupx965512/10/2024Fin[facility] [place] of Occupational Health - Occupational Stress QuestionnaireAnswerDate [...] a household?Yes12/06/2023hildcareAnswerDate RecordedDo problems getting child care leader make 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 you to work [...] InformationValueDate RecordedSex Assigned at BirthNot on fileLegal MynKfxg9003/27/2015 11:30 AM EDTGender IdentityNot on fileSexual OrientationNot [...] [address] [place] [address] PCP - GeneralFamily Ckmyxgji06/21/25documented as of this encounter
--- OUTSIDE RECORDS SUMMARY | 2025-08-14 11:48 | XMS_ITS | Clinical Summary ---
Author Organization [facility] Address [address] [place] [address], [address] [place] [address] Care Team Providers Care Radiator Tester Name Role Phone Tyson Fonseca MD Primary [...] InformationValueDate RecordedSex Assigned at BirthNot on fileLegal MwdJbbw65/18/2016 11:50 AM ESTGender IdentityNot on fileSexual OrientationNot on file Last Filed Vital Signs Vital SignReadingTime TakenCommentsBlood Rgzltffa146/9007/09/2016 2:16 PM EST Stlru212207/09/2016 2:16 PM JXFFdugcbdpuvb88.5 ??C (97.7 ??F)07/09/2016 11:57 AM ESTRespiratory Rpks173109/08/2015 2:01 PM ESTOxygen Nvwbbvvsjw59%07/09/2016 2:01 PM ESTInhaled Oxygen Concentration--Qqqoei51.1 kg (170 lb)07/09/2016 11:57 AM ESTHeight--Body Mass Index-- Plan of Treatment Not on file Care Teams Team MemberRelationshipSpecialtyStart DateEnd Date Tyson Fonseca MD [facility]07/09/16
--- OUTSIDE RECORDS SUMMARY | 2025-08-14 11:48 | XMS_ITS | Clinical Summary ---
Author Organization [facility] Address [address] [place] [address] Care Team Providers Care Milanese Knitting Machine Operator Name Role Phone Tyson Fonseca MD Primary Care Provider [phone] Vivian Brady MD Unavailable [phone] Vivian Brady MD Unavailable [phone] Allergies No known active allergies Medications MedicationSigDispense [...] as needed. 60 tablet /Discontinued Encounters DateTypeDepartmentCare AviwOuojseobbzn43/22/2025Telephone Colorectal Surgery [address] [phone] Lydia Drake PA-C Patient Thdusu2908/11/2025Refill Colorectal Surgery [address] [address] Lydia Drake PA-C Refill Wsszgyh4307/02/2025 Patient Msg Colorectal Surgery [address] [address] Lydia Drake PA-C Follow up from visit /10/2025 12:08 PM EST - 07/01/2025 6:26 PM [facility] Emergency [facility] [address] [place] [phone] Jonh Bethea MD [facility] Discharge Disposition: Home07/01/2025 11:00 AM ESTOffice Visit Colorectal Surgery [address] [address] Lydia Drake PA-C Constipation, unspecified constipation type (Primary Dx); Rectal spasm; Chronic rectal pain; Generalized abdominal pain; Difficulty breathing; Chest /10/4757Madxds47/10/2025 Patient Msg Colorectal Surgery [address] [address] Lydia Drake PA-C 06/28/20259619Fidzri82/06/2025Telephone Colorectal Surgery [address] [address] Suma Navarrete DO Patient Nebrrr6806/26/2025Transcribe Orders [place] [address] Vivian Brady MD Other specified symptoms and signs involving the digestive system and abdomen (Primary Dx); Outlet dysfunction constipation; Other specified disorders of xkmkhn0005/21/2025 Patient Msg Colorectal Surgery [address] [address] Lydia Drake PA-C Appointment Requestfrom Last 3 Months Social History Tobacco UseTypesPacks/DayYears UsedDateSmoking Tobacco: NeverSmokeless Tobacco: Never Tobacco Cessation:Counseling Given: Not Answered Area Deprivation IndexAnswerDate RecordedNational Score (1-100), lower number is lower vnvj118602/28/2025State Score (1-10), lower number is lower wrbo78602/28/2025 Data from: https://www.neighborhoodatlas.[facility]/. Last address used for ljhychkfaiq[address]/28/2025Sex and Gender InformationValueDate RecordedSex Assigned at CbmhmRimh07/17/2025 4:03 PM EDTLegal YvkSckt6911/11/2015 1:48 PM EDTGender BwiravqtSzod40/17/2025 4:03 PM EDTSexual OrientationStraight 03/07/2025 4:03 PM EDT Last Filed Vital Signs Vital SignReadingTime TakenCommentsBlood Whgkqehu144/9611 5:30 PM EST Oubmr993207/01/2025 6:00 PM IFDQisyjaraxjf94.1 ??C (97 ??F)07/01/2025 12:15 PM EST Respiratory Atek502108/31/2024 12:15 PM ESTOxygen Hxdrrkqpzs554%07/01/2025 6:00 PM ESTInhaled Oxygen Concentration--Ybfrro38.5 kg (162 lb)07/01/2025 10:57 AM EST Csztpk508.3 cm (5' 9 )07/01/2025 10:57 AM ESTBody Mass Index23.9211/05/2025 10:57 AM EST Plan of Treatment Health MaintenanceDue DateLast DoneCommentsAnxiety Vrrqmeths45/14/1987Depression Ipuiiibxt12/14/1987HIV Tcbwqouxw17/14/1987Hepatitis B Vaccine (1 of 3 - 19+ 3- dose series)1987CT Qfjjwrhgysue01/14/2014Cologuard (FIT-DNA)2013 Fecal Occult Blood09/04/20133055Ymlggaoweicub45/14/2014Pneumococcal Vaccine: 50+ (1 of 1 - PCV)2018Shingrix Vaccine (1 of 2)09/04/20188164Tuwxsrjqqwi15/28/2025 02/17/2024olorectal Cancer Cqxdbpstv37/28/2025ovid-19 Vaccine ( season), 12/08/2020, 11/18/2020Influenza Vaccine (#1) , 04/06/2020, 06/07/2019Diabetes Oeowawgqs58/21/2028 08/11/2025, 07/01/2025, 12/10/2024, Additional history existsLipid Screening , 07/22/2022rostate Cancer Screening Jvrptuckuz19/21/2030 12/10/2024DTaP,Tdap,Td Vaccine (3 - Td or Tdap), 10/27/2013 RSV Vaccine (1 - 1-dose 75+ series)2043Hepatitis C ScreeningCompleted 09/26/2020, 12/19/2019, 12/19/2019, Additional history exists Procedures Procedure NamePriorityDate/TimeAssociated DiagnosisCommentsHIGH SENSITIVITY TROPONIN T (THIRD) 3 HRS AFTER KXJBXNYOVMT05/10/2025 5:55 PM EST ED BG VENOUS/LAB SVBCGYMzefled54/10/2025 4:56 PM EST HIGH SENSITIVITY TROPONIN T (SECOND)STAT108/31/2024 4:[address] ABD/PEL W MDQUREIIV24/10/2025 4:37 PM EST MRI LUMBAR SPINE WO/W UZMIBAMIP13/10/2025 3:48 PM EST MRI THORACIC SPINE WO/W TQYTXOZPA78/10/2025 3:48 PM EST MRI CERVICAL SPINE WO/W EXVCYNJMD70/10/2025 3:48 PM EST HIGH SENSITIVITY TROPONIN T (INITIAL)STAT108/31/2024 1:32 PM EST MAGNESIUM ESOKYKD07/10/2025 12:43 PM EST COMPREHENSIVE METABOLIC KCTNUDXHN19/10/2025 12:43 PM EST CBC + FONEATVI67/10/2025 12:43 PM EST PT ED PATIENT DKTTNYOTFII36/07/2025 from Last 3 Months Results * HIGH SENSITIVITY TROPONIN T (THIRD) 3 HRS AFTER INITIAL (07/01/2025 5:55 PM EST)ComponentValueRef RangeTest MethodAnalysis TimePerformed AtPathologist SignatureTNT High Aripmxogkri49<12 ng/L108/31/2024 6:19 PM [facility] LABSpecimen (Source)Anatomical Location / LateralityCollection Method / VolumeCollection TimeReceived TimeBloodBLOOD SPECIMEN / UnknownVenipuncture / Gjdgklx0807/01/2025 5:55 PM EST07/01/2025 5:59 PM EST Narrative Authorizing ProviderResult TypeResult StatusAchillfrederic Bethea MDLABORATORYFinal ResultPerforming OrganizationAddressCity/State/ZIP CodePhone Number [facility] [address] * (ABNORMAL) ED BG VENOUS/LAB PANELS (07/01/2025 4:56 PM EST)ComponentValueRef RangeTest MethodAnalysis TimePerformed AtPathologist SignaturePotassium (POCT) 3.4(A)3.5 - 5.0 mmol/LED [facility] HospitalCollection Lzue6589CB [facility] HospitalFIO221.0%ED [facility] Centerpecimen (Source)Anatomical Location / LateralityCollection Method / VolumeCollection TimeReceived Time07/01/2025 4:[address] [facility] - 07/01/2025 4:56 PM EST Meter ID:ED ABL2 Location:ED [facility], [address] [place] [address], [facility] Authorizing ProviderResult TypeResult StatusAchiayanna Bethea MDEMERGENCY DEPTFinal ResultPerforming OrganizationAddressCity/State/ZIP CodePhone Number [facility] ED [address] * HIGH SENSITIVITY TROPONIN T (SECOND) (07/01/2025 4:44 PM EST)ComponentValueRef RangeTest MethodAnalysis TimePerformed AtPathologist SignatureTNT High Scgfqfqbacd22<12 ng/L108/31/2024 5:22 PM ESTST. [facility]THONY'S [facility]OS[facility] MAIN LABSpecimen (Source)Anatomical Location / LateralityCollection Method / VolumeCollection TimeReceived TimeBloodBLOOD SPECIMEN / UnknownVenipuncture / Pomwqcs8907/01/2025 4:44 PM EST07/01/2025 5:00 PM EST Narrative Authorizing ProviderResult TypeResult StatusJonh Bethea MDLABORATORYFinal ResultPerforming OrganizationAddressCity/State/ZIP CodePhone Number [facility] [address] [place] [address], * CT ABD/PEL W IVCON (07/01/2025 4:37 PM EST)Anatomical RegionLateralityModality AbdomenComputed TomographySpecimen (Source)Anatomical Location / Laterality Collection Method / VolumeCollection TimeReceived Time07/01/2025 4:37 PM EST Impressions 07/01/2025 5:27 PM EST IMPRESSION: No acute process in the abdomen/pelvis. ??Specifically, no bowel obstruction as queried. Finish Rolls Operator: EB ?? Transcribe Date/Time: Jul 01 2025 ??4:50P Dictated by : KIEL LUKE MD This examination was interpreted and the report reviewed and electronically signed by: ROMULO COLVIN MD on Jul 01 2025 ??5:25PM ??EST Narrative 07/01/2025 5:27 PM EST * * *Final Report* * * DATE OF EXAM: Jul 01 2025 ??4:37PM ?? [facility] ?? 0530 ??- ??CT ABD/PEL W [...] images: No additional findings. Procedure Note Provider, [facility] - 07/01/2025 * * *Final Report* * * DATE OF EXAM: Jul 01 2025 4:37PM [facility] 0530 - CT ABD/PEL W IVCON [...] abdomen/pelvis. Specifically, no bowel obstruction as queried. Finish Rolls Operator: EB Transcribe Date/Time: Jul 01 2025 4:50P [...] PM ??via verbal communication. --END OF FINDING-- Finish Rolls Operator: EB ?? Transcribe Date/Time: Jul 01 2025 [...] renal cyst. ??No dilated bowel within the emujs-hq-twnu. CERVICAL: Counting reference: ??Craniocervical junction. ?? Anatomic [...] are normal in appearance. Procedure Note Provider, [facility] - 07/01/2025 * * *Final Report* * * DATE OF EXAM: Jul 01 2025 3:47PM [facility] 0304 - MRI LUMBAR SPINE WO/W IVCON [...] renal cyst. No dilated bowel within the pzimh-cq-pkch. CERVICAL: Counting reference: Craniocervical junction. Anatomic Variants:None. [...] PM via verbal communication. --END OF FINDING-- Finish Rolls Operator: EB Transcribe Date/Time: Jul 01 2025 3:48P [...] PM ??via verbal communication. --END OF FINDING-- Finish Rolls Operator: EB ?? Transcribe Date/Time: Jul 01 2025 [...] renal cyst. ??No dilated bowel within the yqcbk-le-pxim. CERVICAL: Counting reference: ??Craniocervical junction. ?? Anatomic [...] are normal in appearance. Procedure Note Provider, [facility] - 07/01/2025 * * *Final Report* * * DATE OF EXAM: Jul 01 2025 3:47PM [facility] 0326 - MRI THORACIC SPINE WO/W IVCON [...] renal cyst. No dilated bowel within the mhzzh-pe-zemu. CERVICAL: Counting reference: Craniocervical junction. Anatomic Variants:None. [...] PM via verbal communication. --END OF FINDING-- Finish Rolls Operator: EB Transcribe Date/Time: Jul 01 2025 3:48P [...] PM ??via verbal communication. --END OF FINDING-- Finish Rolls Operator: PSCB ?? Transcribe Date/Time: Jul 01 2025 [...] renal cyst. ??No dilated bowel within the ruuxf-mt-muub. CERVICAL: Counting reference: ??Craniocervical junction. ?? Anatomic [...] are normal in appearance. Procedure Note Provider, [facility] - 07/01/2025 * * *Final Report* * * DATE OF EXAM: Jul 01 2025 3:47PM [facility] 0298 - MRI CERVICAL SPINE WO/W IVCON [...] renal cyst. No dilated bowel within the btrkr-sr-qflm. CERVICAL: Counting reference: Craniocervical junction. Anatomic Variants:None. [...] PM via verbal communication. --END OF FINDING-- Finish Rolls Operator: EB Transcribe Date/Time: Jul 01 2025 3:48P Dictated by : ZAIRA PEDROZA MD This examination was interpreted and the report reviewed and electronically signed by: TALYA YOO MD on Jul 01 2025 5:12PM EST Authorizing ProviderResult TypeResult StatusAchilles Bebos MDMRI-PAMAFinal Result * (ABNORMAL) HIGH SENSITIVITY TROPONIN T (INITIAL) (07/01/2025 1:32 PM EST) ComponentValueRef RangeTest MethodAnalysis TimePerformed AtPathologist SignatureTNT High Ebuphcbhpee92(H)<12 ng/L108/31/2024 2:08 PM ESTST. [facility]'S [facility] MAIN LABSpecimen (Source)Anatomical Location / LateralityCollection Method / VolumeCollection TimeReceived TimeBloodBLOOD SPECIMEN / Unknown Venipuncture / Yzbcokl7507/01/2025 1:32 PM EST07/01/2025 1:48 PM EST Narrative Authorizing ProviderResult TypeResult StatusAchilles Lake MDLABORATORYFinal ResultPerforming OrganizationAddressCity/State/ZIP CodePhone Number [facility] [address] [place] [address], * MAGNESIUM (07/01/2025 12:43 PM EST)ComponentValueRef RangeTest MethodAnalysis TimePerformed AtPathologist SignatureMagnesium1.91.7 - 2.3 mg/dL07/01/2025 1:16 PM [facility] LABSpecimen (Source)Anatomical Location / LateralityCollection Method / VolumeCollection TimeReceived TimeBloodBLOOD SPECIMEN / UnknownVenipuncture / Ojvzzqh5007/01/2025 12:43 PM EST07/01/2025 12:49 PM EST Narrative Authorizing ProviderResult TypeResult StatusAchillfrederic Rosasjoaquim ORLABORATORYFinal ResultPerforming OrganizationAddressCity/State/ZIP CodePhone Number [facility] [address] [place] [address], * (ABNORMAL) COMPREHENSIVE METABOLIC PANEL (07/01/2025 12:43 PM EST)Component ValueRef RangeTest MethodAnalysis TimePerformed AtPathologist Signature Protein, Total8.3(H)6.3 - 8.0 g/dL07/01/2025 1:16 PM [facility] LABAlbumin5.0(H)3.9 - 4.9 g/dL07/01/2025 1:16 PM [facility] Calcium, Total10.3(H)8.5 - 10.2 mg/dL07/01/2025 1:16 PM [facility] LABBilirubin, Total0.80.2 - 1.3 mg/dL07/01/2025 1:16 PM [facility] LABAlkaline Yfzhukcyfxv890(H)38 - 113 U/L108/31/2024 1:16 PM EST [facility] XINMDK8552 - 40 U/L108/31/2024 1:16 PM [facility] LABComment:Results may be falsely increased due to interference from hemolysis. Suggest reorder as clinically indicated.LOJ6049 - 54 U/L 07/01/2025 1:16 PM [facility] LABComment:Results may be falsely increased due to interference from hemolysis. Suggest reorder as clinically i ndicated.Cqvbrur6789 - 99 mg/dL07/01/2025 1:16 PM [facility] Comment: The [place] [employer] (ADA) provides guidance for cutoff [...] Standards of Medical Care in Diabetes 2016, [place] [employer]. Diabetes Care. 2016.39(Suppl 1). NRS867 - 24 mg/dL07/01/2025 1:16 PM [facility] LABCreatinine0.72 (L)0.73 - 1.22 mg/dL07/01/2025 1:16 PM [facility] LZNIusftb576039 - 144 mmol/L108/31/2024 1:16 PM [facility] YDBYlxxdtumo36/10/2025 1:16 PM [facility] LABComment:Unable to assay due to interference from hemolysis. Suggest reorder as clinically indicated.Akihxwmd62785 - 107 mmol/L108/31/2024 1:16 PM [facility] OPQMW940(L)22 - 30 mmol/L 07/01/2025 1:16 PM [facility] LABAnion Gap19(H)8 - 15 mmol/L 07/01/2025 1:16 PM [facility] LABEstimated Glomerular Filtration Mqhq914>=60 mL/min/1.73m 07/01/2025 1:16 PM [facility] LABComment:Estimated Glomerular Filtration Rate (eGFR) is [...] VolumeCollection TimeReceived TimeBloodBLOOD SPECIMEN / UnknownVenipuncture / Avshxfo6507/01/2025 12:43 PM EST07/01/2025 12:49 PM EST Narrative Authorizing ProviderResult TypeResult StatusAchilles Lake CHAVISLABORATORYFinal ResultPerforming OrganizationAddressCity/State/ZIP CodePhone Number [facility] [address] * (ABNORMAL) COMPLETE BLOOD COUNT AND DIFFERENTIAL (07/01/2025 12:43 PM EST) ComponentValueRef RangeTest MethodAnalysis TimePerformed AtPathologist SignatureWBC8.343.70 - 11.00 k/uL07/01/2025 12:57 PM [facility] LABRBC4.744.20 - 6.00 m/uL07/01/2025 12:57 PM [facility] LAB Neqgmjcyre13.413.0 - 17.0 g/dL07/01/2025 12:57 PM [facility] Nhsjosyate23.639.0 - 51.0 %07/01/2025 12:57 PM [facility] LABMCV 89.980.0 - 100.0 fL07/01/2025 12:57 PM [facility] JFQVOF74.526.0 - 34.0 pg07/01/2025 12:57 PM [facility] WJRIQMW43.2(H)30.5 - 36.0 g/dL07/01/2025 12:57 PM [facility] LABRDW-CV11.611.5 - 15.0 %07/01/2025 12:57 PM [facility] LABPlatelet Pbecc505433 - 400 k/uL07/01/2025 12:57 PM [facility] BVRILE16.69.0 - 12.7 fL 07/01/2025 12:57 PM [facility] LABNeutrophils %58.7%07/01/2025 12:57 PM [facility] LABAbs Neut4.901.45 - 7.50 k/uL07/01/2025 12:57 PM [facility] LABLymphocytes %26.9%07/01/2025 12:57 PM [facility] LABAbs Lymph2.241.00 - 4.00 k/uL07/01/2025 12:57 PM [facility] LABMonocytes %9.2%07/01/2025 12:57 PM [facility] LABAbs Mono0.77<0.87 k/uL07/01/2025 12:57 PM [facility] LABEosinophils %4.0%07/01/2025 12:57 PM [facility] LABAbs Eosin0.33<0.46 k/uL07/01/2025 12:57 PM [facility] LABBasophils % 0.7%07/01/2025 12:57 PM [facility] LABAbs Baso0.06<0.11 k/uL 07/01/2025 12:57 PM [facility] LABImmature Granulocytes %0.5% 07/01/2025 12:57 PM [facility] LABAbs Immature Gran0.04<0.10 k/uL07/01/2025 12:57 PM [facility] LABNRBC0.0/100 WBC07/01/2025 12:57 PM [facility] LABAbsolute nRBC<0.01<0.01 k/uL07/01/2025 12:57 PM [facility] LABDiff XxgePwto25/10/2025 12:57 PM [facility] LABSpecimen (Source)Anatomical Location / Laterality Collection Method / VolumeCollection TimeReceived TimeBloodBLOOD SPECIMEN / UnknownVenipuncture / Ntuljmh5507/01/2025 12:43 PM EST07/01/2025 12:49 PM EST [facility] Authorizing ProviderResult TypeResult StatusAchilles Lake CHAVISLABORATORYFinal ResultPerforming OrganizationAddressCity/State/ZIP CodePhone Number [facility] [address] [place] [address], * PT ED PATIENT INFORMATION (06/28/2025)Specimen (Source)Anatomical [...] SAccjavier TypeRelation to PatientDate of BirthPhone Billing AddressPersonal/JfjphgAdyb01/14/1971 [address] [place] [address] Care Teams Team MemberRelationshipSpecialtyStart DateEnd Tyson Fonseca MD PCP - GeneralFamily Medicine11/11/15 Vivian Brady MD [address] [employer] [address] [address] Gastroenterology01/16/25 Vivian Brady MD [address] [employer] [address] [address] PagazmvhiOlzkcwldyeiqlpiy26/5/25
--- OUTSIDE RECORDS SUMMARY | 2025-08-14 11:48 | XMS_ITS | Clinical Summary ---
Author Organization [facility] Address [address] [place] [address] Care Team Providers Care Canal Lock Tender Chief Operator Name Role Phone Unavailable Primary Care Provider Unavailabl e Social History Tobacco UseTypesPacks/DayYears UsedDateSmoking Tobacco: Never AssessedUT Safety & EnvironmentAnswerDate RecordedFear of Current or Ex-PartnerNot on file 10/13/2023Emotionally AbusedNot on file10/13/2023hysically AbusedNot on file 10/13/2023Sexually AbusedNot on file4Physically or Sexually AbusedNot on file10/13/2023Sex and Gender InformationValueDate RecordedSex Assigned at BirthNot on fileLegal ZbkLsjs1602/17/2022 11:50 PM EDTGender IdentityNot on file Sexual OrientationNot on file Plan of Treatment Health MaintenanceDue DateLast DoneCommentsCT Qixwolyviqdu94/14/1969Colonoscopy 1968Colorectal Cancer Mahmmyraf33/14/1969FIT-DNA1968FIT1968 FOBT1968 2242Bhanxkoebdqfq98/14/1969Depression Kzvsvchiy68/14/1981Hepatitis B Vaccines (1 of 3 - 19+ 3-dose series)1987Pneumococcal Vaccine: Pediatrics (0 to 5 Years) and At-Risk Patients (6 to 64 Years) (1 of 2 - PCV)1987 Adult Swiqqcw7109/04/1990Zoster Vaccines (1 of 2)2018COVID-19 Vaccine (1 - [...] Russell TypeRelation to PatientDate of BirthPhone Billing AddressPersonal/IbxhydQgmi51/14/1971 [address] [place] [address] * Guarantor: Chai Russell TypeRelation to PatientDate of BirthPhone Billing AddressThird Green Party WlxgthgsnEoty13/14/1971 [address] [place] [address]
--- OUTSIDE RECORDS SUMMARY | 2025-08-14 11:48 | XMS_ITS | Clinical Summary ---
Author Organization [employer] tem Address [id number] [address] [place] [address] Care Team Providers Care Patent Legal Assistant Name Role Phone Cisco Blanc DO Primary Care Provider [phone] Allergies No known active allergies Medications MedicationSigDispense [...] fracture of right maxillary sinus, initial encounter ([facility]),Closed fracture of right orbital floor, initial encounter ([facility]), Closed fracture of nasal bone, initial encounterTake [...] 152 g Discontinued(Reorder) Active Problems ProblemNoted DateDiagnosed QsvfJvoemveufp88/21/2025Irritable bowel syndrome with both constipation and vapnhbun12/21/2025hange in bowel bflycr234Paranoid vxcncosq56/19/2024Polysubstance abuse4Persistent jpbkrlaw80/29/2023 Chronic idiopathic /14/2022lass 1 obesity due to excess calories with serious comorbidity and body mass index (BMI) of 32.0 to 32.9 in adult 08/04/2022Hypogonadism in male10/12/2021OVID-1902Delirium tremens 03/09/2021evere episode of recurrent major depressive disorder, without psychotic fgagjiml34/19/2021ssential hypertension, chdrme0803/09/2021hronic hepatitis C without hepatic coma2572Kggrjukty96/17/2021Acute hypoxemic respiratory jgiiwnb06/14/2021Polyp of sigmoid colon10/17/2019Diverticulosis 10/17/2019Non-traumatic qszpdjjmnwniqj84/27/2018Compartment syndrome of hand 12/29/2015Internal impingement of right yjjjktjh55/09/2881Cxroilb54/09/2015 Resolved Problems ProblemNoted DateDiagnosed DateResolved DateColon cancer rpqphqsuv91/21/2020 10/17/20194494Cfrgbgedjz85/29/2023 Encounters DateTypeDepartmentCare NwfdPuurtqplbhd92/24/2025Orders Only [facility] [address] [place] [address] Ref Prov, Not In System 08/11/2025 7:30 AM EST - 08/11/2025 12:24 [facility] [address] [place] [id number] Tere Pantoja MD Vasovagal syncope (Primary Dx); Closed fracture of right maxillary sinus, initial encounter (CMS-HCC); Closed fracture of right orbital floor, initial encounter (CMS-HCC); Closed fracture of nasal bone, initial encounter Discharge Disposition: Home08/11/2025Refill [facility] [address] [place] [address] Cisco Blanc, DO 08/11/20255055Cingwk59/12/2025Refill [facility] [address] [place] [address] Cisco Blanc, DO Anal vcsnlmh5506/06/2025Orders Only [facility] [address] [place] [address] Ref Prov, Not In System 05/20/2025 10:39 AM EDT - 05/20/2025 11:14 [facility] [address] [place] [phone] Rohit Renner MD Irritable bowel syndrome with both constipation and diarrhea (Primary Dx); Anxiety Discharge Disposition: Home05/20/2025Travelfrom Last 3 Months Immunizations ImmunizationAdministration DatesNext DueInfluenza, Injectable, quadrivalent (PF) 06/20/2021,04/06/2020,06/07/2019Tdap10/27/2013 Family History Medical HistoryRelationNameCommentsHypertensionBrother 1JohnNo Known Problems Brother 2RobertNo Known ProblemsDaughterCoronary artery diseaseFatherHeart attackFatherHeart attackMaternal GrandfatherHypertensionMotherHeart attack Paternal GrandfatherRelationNameStatusCommentsBrother 1JohnAliveBrother 2Robert AliveDaughterAliveFatherAliveMaternal GrandfatherMotherAlivePaternal Grandfather Social History Tobacco UseTypesPacks/DayYears UsedDateSmoking Tobacco: OhgehsKdvfomwwmf808 07/23/1985 - 12/20/2018Passive Smoke Exposure: PastSmokeless Tobacco: Never Tobacco Cessation:Counseling Given: Not Answered Comments:vape, today Alcohol UseStandard Drinks/WeekCommentsYes0 (1 standard drink = 0.6 oz pure alcohol)OccasionalAHC UtilitiesAnswerDate RecordedIn the past 12 months has the Rep, gas, oil, or water [employer] threatened to shut off services in your home?Yes09/11/2024Social Connection and Isolation PanelAnswerDate RecordedIn a typical week, how many times do you talk on the phone with family, friends, or neighbors?Twice a week08/01/2022How often do you get together with friends or relatives?Once a week08/01/2022How often do you attend restoration or jehovah's witness services?Never08/01/2022ctive Member of Clubs or OrganizationsNot on file 08/01/2022How often do you attend meetings of the clubs or organizations you belong to?Never08/01/2022re you , , , , never , or living with a partner?Never irdrugo3508/01/2022UDIT-CAnswerDate RecordedQ1: How often do you have a drink containing alcohol?Monthly or less 09/11/2024Q2: How many drinks containing alcohol do you have on a typical day when you are drinking?Patient does not drink09/11/2024Q3: How often do you have six or more drinks on one occasion?Less than cmmnkmi6909/11/2024Overall Financial Resource Strain (CARDIA)AnswerDate RecordedHow hard is it for you to pay for the very basics like food, housing, medical care, and heating?Very hard12/06/2023 PHQ-2AnswerDate RecordedTotal Rxeox793312/10/2024Finheber [facility] medical center [place] of Occupational Health - Occupational Stress QuestionnaireAnswerDate [...] of a household?Yes12/06/2023hildcareAnswerDate RecordedDo problems getting 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 study 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 make 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 you to work [...] InformationValueDate RecordedSex Assigned at BirthNot on fileLegal OmsUcaa5003/27/2015 11:30 AM EDTGender IdentityNot on fileSexual OrientationNot on file Last Filed Vital Signs Vital SignReadingTime TakenCommentsBlood Cstoehzz279/3020808/11/2025 12:03 PM EST Brnbx56392/21/2025 12:03 PM PVLNqloxhzwzme07.4 ??C (97.5 ??F)08/11/2025 7:41 AM ESTRespiratory Abia0582 12:03 PM ESTOxygen Xreqltdpaa35%08/11/2025 12:03 PM ESTInhaled Oxygen Concentration--Cqkmwi38.9 kg (174 lb)08/11/2025 7:41 AM EST Itrvjn165.7 cm (5' 8 )08/11/2025 7:41 AM ESTBody Mass Index26.4608/11/2025 7:41 AM EST Plan of Treatment Health MaintenanceDue DateLast DoneCommentsAdult BMI Follow Up Plan1986 COVID-19 Vaccine ( season), 12/08/2020, 11/18/2020Influenza Wzloifn39, 04/06/2020, 06/07/2019 Depression Dzehiojgz73Zoster (Shingles) Vaccine (1 of 2) 12/10/2025Postponed from 2018 (Patient Refused)Adult BMI Screening Tobacco Micctaiwd28olonoscopy02/16/2034 02/17/2024, 4DTaP,Tdap and Td Vaccines (3 - Td or Tdap)06/12/2035 06/12/2025, 10/27/2013 Goals GoalPatient Goal TypeAssociated ProblemsRecent ProgressPatient-Stated?Author home with self care Jenny Miguel RN Note: Evaluation of progress towards goal: with support from friends and family, patient needs to fllow up with [facility] [place] [employer] Not on file Procedures Procedure NamePriorityDate/TimeAssociated DiagnosisCommentsXR ABDOMEN AP 1 VW Uakucei3608/12/2025 9:35 AM GIVPCZUCWXPBNB39/21/2025 11:[address] CTA QJPGQNQFI42/21/2025 9:[address] FACIAL BONES WO EDYIOVJQ45/21/2025 9:[address] CERVICAL SPINE WO FDLUYYEJ83/21/2025 9:[address] BRAIN WO AWRETLIU66/21/2025 9:34 AM EST XR CHEST 2 RSBLNPI42/21/2025 9:28 AM EST TROP I, HIGH SENSITIVITY 1 FWYMRKXL18/21/2025 8:57 AM EST SARS/FLU A+B/RSV BY NAAT/MOLECULAR (M4RT COLLECTION TUBE)STAT110/12/2024 8:00 AM EST D-NEREVPPXJ77/21/2025 7:58 AM EST TROPONIN I, HIGH SENSITIVITY 0 AWGJCKQV34/21/2025 7:58 AM EST THYROID PROFILE INCLUDES TSH GA9WFCC6708/11/2025 7:58 AM EST KSBYAIVIOZJ21/21/2025 7:58 AM EST TROPONIN I, HIGH SENSITIVITY 0 YDKOUXAD20/21/2025 7:58 AM EST SCPVZZOGAJPIL67/21/2025 7:58 AM EST AIKCWVQRKS86/21/2025 7:58 AM EST LACTATE W/ UFWZUYBVNI51/21/2025 7:58 AM EST COMPREHENSIVE METABOLIC SHAMFIYTF77/21/2025 7:58 AM EST CWEWDDLA85/21/2025 7:58 AM EST PROTIME & PJIZCVT0408/11/2025 7:58 AM EST CBC WITH AUTO PPDUHRQVPZKNIGDP68/21/2025 7:58 AM EST ECG 12-KSDRHUMK73/21/2025 7:49 AM EST XR ANKLE RT MIN 3 GJXLokulfv93/16/2025 8:30 AM EDTXR FOOT RT MIN 3 VWSRoutine 06/06/2025 8:28 AM EDTPROVATION UIBMWPWMLBREfpgbqn90/28/2024 1:59 PM EDT from Last 3 Months or Most Recently Relevant to Health Maintenance Results * X-ray abdomen ap 1 view (08/12/2025 9:35 AM EST)Anatomical RegionLaterality ModalityBody, AbdomenN/AComputed Radiography Narrative Authorizing ProviderResult TypeResult StatusNot In System Ref ProvIMG DIAGNOSTIC IMAGING ORDERABLESFinal Result * (ABNORMAL) Lactate (08/11/2025 11:56 AM EST)ComponentValueRef RangeTest Method Analysis TimePerformed AtPathologist SignatureLACTATE2.3(H)0.4 - 2.0 mmol/L 08/11/2025 12:16 PM ESTPROMEDICA MERCY MEDICAL CENTERpecimen (Source) Anatomical Location / LateralityCollection Method / VolumeCollection Time Received TimeBloodVenous blood / UnknownVenipuncture / Zzaonlt9808/11/2025 11:56 AM EST08/11/2025 11:58 AM EST Narrative Authorizing ProviderResult TypeResult StatusMadelelvira NAM BLOOD ORDERABLESFinal ResultPerforming OrganizationAddressCity/State/ZIP CodePhone Number SARBJIT [facility] [address] [place] [address], [place] * CT angiogram chest (08/11/2025 9:51 [...] 10:08 AM Authorizing ProviderResult TypeResult StatusChiquita Steele [facility] CT ORDERABLES Final Result * CT [...] SignatureTROPONIN I, HIGH SENSITIVITY2<21 ng/L110/12/2024 9:34 AM [facility] Specimen (Source)Anatomical Location / LateralityCollection Method / Volume Collection TimeReceived TimeBloodVenous blood / UnknownVenipuncture / Unknown 08/11/2025 8:57 AM EST08/11/2025 9:03 AM EST Narrative Authorizing ProviderResult TypeResult StatusTere NAM BLOOD ORDERABLESFinal ResultPerforming OrganizationAddressCity/State/ZIP CodePhone Number [facility] [address] [place] [address], * SARS/FLU A+B/RSV by NAAT/Molecular (M4RT Collection Tube) (08/11/2025 8:00 AM EST)ComponentValueRef RangeTest MethodAnalysis TimePerformed AtPathologist SignatureFLU A LEZIrvlhvsaJhuhklyh37/21/2025 8:46 AM [facility]ENTERFLU B MQUPqnwwpfgVaphtbek19/21/2025 8:46 AM [facility]ENTERRSV BY PUEUjuyfsvnZobbcojt08/21/2025 8:46 AM EST [facility] COV 2 BY PCRNot DetectedNot Detected 08/11/2025 8:46 AM [facility] (Source) Anatomical Location / LateralityCollection Method / VolumeCollection Time Received TimeSwabNasopharyngeal structure / Olkbsns9608/11/2025 8:00 AM EST 08/11/2025 8:09 AM EST Narrative [facility] - 08/11/2025 8:46 AM EST [...] operators who are performing tests using either [employer] DX or Nualight systems and is limited to laboratories that [...] GENERAL ORDERABLESFinal ResultPerforming OrganizationAddressCity/State/ZIP Code Phone Number [address] [address], * Troponin I, High Sensitivity 0 Hour (08/11/2025 7:58 AM EST)ComponentValueRef RangeTest MethodAnalysis TimePerformed AtPathologist SignatureTROPONIN I, HIGH SENSITIVITY3<21 ng/L110/12/2024 8:29 AM [facility] Specimen (Source)Anatomical Location / LateralityCollection Method / Volume Collection TimeReceived TimeBloodVenous blood / UnknownVenipuncture / Unknown 08/11/2025 7:58 AM EST08/11/2025 8:00 AM EST Narrative Authorizing ProviderResult TypeResult StatusTere NAM BLOOD ORDERABLESFinal ResultPerforming OrganizationAddressCity/State/ZIP CodePhone Number [address] [place] [address], [place] * (ABNORMAL) Lactate w/ Reflex (08/11/2025 7:58 AM EST)ComponentValueRef Range Test MethodAnalysis TimePerformed AtPathologist SignatureLACTATE W/REFLEX5.1 (HH)0.4 - 2.0 mmol/L110/12/2024 8:44 AM [facility] Specimen (Source)Anatomical Location / LateralityCollection Method / Volume Collection TimeReceived TimeBloodVenous blood / UnknownVenipuncture / Unknown 08/11/2025 7:58 AM EST08/11/2025 8:00 AM EST Narrative Authorizing ProviderResult TypeResult StatusTere NAM BLOOD ORDERABLESFinal ResultPerforming OrganizationAddPhysicians Care Surgical Hospitalty/State/ZIP CodePhone Number [address] [address], [place] * Thyroid profile includes TSH FT4 (08/11/2025 7:58 AM EST)ComponentValueRef RangeTest MethodAnalysis TimePerformed AtPathologist SignatureFREE T40.720.61 - 1.60 ng/dL08/11/2025 8:40 AM [facility] CENTERTSH2.29 0.49 - 4.67 uIU/mL08/11/2025 8:40 AM [facility] Specimen (Source)Anatomical Location / LateralityCollection Method / Volume Collection TimeReceived TimeBloodVenous blood / UnknownVenipuncture / Unknown 08/11/2025 7:58 AM EST08/11/2025 8:00 AM EST Narrative Authorizing ProviderResult TypeResult StatusTere NAM BLOOD ORDERABLESFinal ResultPerforming OrganizationAddressCity/State/ZIP CodePhone Number [facility] [address] [place] [address], * (ABNORMAL) CBC auto differential (08/11/2025 7:58 AM EST)ComponentValueRef RangeTest MethodAnalysis TimePerformed AtPathologist SignatureWBC6.34 - 11 10^9L110/12/2024 8:04 AM [facility] CENTERRBC Count4.70 4.1 - 5.7 10^1208/11/2025 8:04 AM [facility] Fprnirtjaw81.113 - 17 g/dL08/11/2025 8:04 AM [facility]ENTERHematocrit42.839 - 50 %08/11/2025 8:04 AM [facility]ENTERMCV9180 - 100 fL08/11/2025 8:04 AM [facility]ENTERMCH32.127 - 34 pg08/11/2025 8:04 AM [facility]ENTERMCHC35.332 - 36 g/dL08/11/2025 8:04 AM [facility]ENTERRDW12.711.5 - 15 %08/11/2025 8:04 AM [facility] CENTERPlatelet Igzfj983138 - 450 10^9L110/12/2024 8:04 AM EST [facility]ENTERMPV8.97 - 12 fL08/11/2025 8:04 AM EST [facility]ENTERNeutrophils %39.0%08/11/2025 8:04 AM EST [facility]ENTERLymphocytes %40.5%08/11/2025 8:04 AM EST [facility] HOSPITALMonocytes %7.1%08/11/2025 8:04 AM EST [facility] HOSPITALEosinophils %12.5%08/11/2025 8:04 AM EST [facility]ENTERBasophils %0.9%08/11/2025 8:04 AM EST [facility]ENTERNeutrophils Absolute (A)2.51.5 - 6.6 10^9/L 08/11/2025 8:04 AM ESTSYCAMORE MEDICAL CENTERLymphocytes Absolute 2.61.0 - 3.5 10^9/L110/12/2024 8:04 AM [facility] Monocytes Absolute0.50.0 - 0.9 10^9/L110/12/2024 8:04 AM ESTPROIMMANUEL MEDICAL CENTER HOSPITALEosinophils Absolute0.8(H)0.0 - 0.4 10^9/L110/12/2024 8:04 AM ESTSYCAMORE MEDICAL CENTERBasophils Absolute0.10.0 - 0.2 10^9/L 08/11/2025 8:04 AM [facility] CENTERDifferential Type AUTOMATED GUPWAQGXOELV03/21/2025 8:04 AM [facility]imen (Source)Anatomical Location / LateralityCollection Method / VolumeCollection TimeReceived TimeBloodVenous blood / UnknownVenipuncture / Qhazbch1508/11/2025 7:58 AM EST08/11/2025 8:00 AM EST Narrative Authorizing ProviderResult TypeResult StatusTere NAM BLOOD ORDERABLESFinal ResultPerforming OrganizationAddressCity/State/ZIP CodePhone Number [facility] [address] [place] [address], * APTT (08/11/2025 7:58 AM EST)ComponentValueRef RangeTest MethodAnalysis Time Performed AtPathologist WbzbijdkuBGGZ3515 - 37 sec08/11/2025 8:11 AM EST [facility] (Source)Anatomical Location / LateralityCollection Method / VolumeCollection TimeReceived TimeBloodVenous blood / UnknownVenipuncture / Xwwouyr2708/11/2025 7:58 AM EST08/11/2025 8:00 AM EST Narrative Authorizing ProviderResult TypeResult StatusTere Pantoja MDLAB BLOOD ORDERABLESFinal ResultPerforming OrganizationAddressty/State/ZIP CodePhone Number [address] [place] [address], [place] * Protime & INR (08/11/2025 7:58 AM EST)ComponentValueRef RangeTest Method Analysis TimePerformed AtPathologist GzywieylfTLXZJIS93.89.8 - 13.2 sec 08/11/2025 8:11 AM [facility] CENTERINR1.00.9 - 1.2 08/11/2025 8:11 AM [facility]pec[facility] (Source) Anatomical Location / LateralityCollection Method / VolumeCollection Time Received TimeBloodVenous blood / UnknownVenipuncture / Gtxatnd0108/11/2025 7:58 AM EST08/11/2025 8:00 AM EST Narrative Authorizing ProviderResult TypeResult StatusTere Pantoja MDWILLIAM [facility] BLOOD ORDERABLESFinal ResultPerforming OrganizationAddressMagruder Hospital/State/[facility] CodePhone Number [address] [place] [address], * (ABNORMAL) D-Dimer (08/11/2025 7:58 AM EST)ComponentValueRef RangeTest Method Analysis TimePerformed AtPathologist SignatureD VZBUG237(H)1 - 255 ng/mL 08/11/2025 8:11 AM [facility] CENTERComment:Results >255 ng/mL DDU: Results may be indicative [...] TimeReceived TimeBloodVenous blood / Unknown Venipuncture / Pzhsrtw2008/11/2025 7:58 AM EST08/11/2025 8:00 AM EST Narrative Authorizing ProviderResult TypeResult StatusTere NAM BLOOD ORDERABLESFinal ResultPerforming OrganizationAddressCity/State/ZIP CodePhone Number [address] [place] [address], [place] * Magnesium (08/11/2025 7:58 AM EST)ComponentValueRef RangeTest MethodAnalysis TimePerformed AtPathologist SignatureMAGNESIUM2.21.8 - 2.6 mg/dL08/11/2025 8:[address]PROSt[address] Joseph's Hospitaln (Source)Anatomical Location / LateralityCollection Method / VolumeCollection TimeReceived Time BloodVenous blood / UnknownVenipuncture / Rrgdmtm5008/11/2025 7:58 AM EST 08/11/2025 8:00 AM EST Narrative Authorizing ProviderResult TypeResult StatusTere Pantoja MDLAB BLOOD ORDERABLESFinal ResultPerforming OrganizationAddressCity/State/ZIP CodePhone Number [address] [address], [place] * (ABNORMAL) Lipase (08/11/2025 7:58 AM EST)ComponentValueRef RangeTest Method Analysis TimePerformed AtPathologist PjxsaxhszVRJVGU46(H)17 - 40 U/L110/12/2024 8:17 AM ESTC[facility] (Source)Anatomical Location / LateralityCollection Method / VolumeCollection TimeReceived Time BloodVenous blood / UnknownVenipuncture / Sjwwvcv5808/11/2025 7:58 AM EST 08/11/2025 8:00 AM EST Narrative Authorizing ProviderResult TypeResult StatusTere Pantoja MDLAB BLOOD ORDERABLESFinal ResultPerforming OrganizationAddressCity/State/ZIP CodePhone Number [address] [address], [place] * Ethanol (08/11/2025 7:58 AM EST)ComponentValueRef RangeTest MethodAnalysis TimePerformed AtPathologist SignatureETHANOL<0.01<=0.08 g/dL08/11/2025 8:20 AM [facility]ENTERComment: This report is intended for use in clinical monitoring or management of patients. Specimen (Source)Anatomical Location / LateralityCollection Method / Volume Collection TimeReceived TimeBloodVenous blood / UnknownVenipuncture / Unknown 08/11/2025 7:58 AM EST08/11/2025 8:00 AM EST Narrative Authorizing ProviderResult TypeResult StatusMaphilippe NAM BLOOD ORDERABLESFinal ResultPerforming OrganizationAddressCity/State/ZIP CodePhone Number [place] [phone] [place] [address], * (ABNORMAL) Comprehensive metabolic panel (08/11/2025 7:58 AM EST)Component ValueRef RangeTest MethodAnalysis TimePerformed AtPathologist SignatureSODIUM 441047 - 146 mmol/L110/12/2024 8:20 AM [facility] POTASSIUM4.63.5 - 5.0 mmol/L110/12/2024 8:20 AM [facility] CENTERCHLORIDE10598 - 109 mmol/L110/12/2024 8:20 AM [facility] CENTERCARBON RSTXQZF32(L)22 - 32 mmol/L110/12/2024 8:20 AM EST [facility]ENTERANION ILF193 - 15 mmol/L110/12/2024 8:20 AM [facility] CENTERBLOOD UREA IELICTRO75 - 23 mg/dL 08/11/2025 8:20 AM [facility] CENTERCREATININE0.930.70 - 1.20 mg/dL08/11/2025 8:20 AM [facility] CENTERComment: METHOD TRACEABLE TO IDMS WQDZTSMBCBLMDEV312(H)65 - 99 mg/dL08/11/2025 8:20 AM [facility] CENTERCALCIUM9.68.5 - 10.5 mg/dL08/11/2025 8:20 AM [facility] CENTERTOTAL PROTEIN7.86.0 - 8.0 g/dL 08/11/2025 8:20 AM [facility] CENTERALBUMIN4.73.2 - 5.3 g/dL08/11/2025 8:20 AM [facility] CENTERALKALINE AOCGTFSJAYR50243 - 130 U/L110/12/2024 8:20 AM [facility]ENTERAST32<=41 U/L110/12/2024 8:20 AM [facility] ALT33<=40 U/L110/12/2024 8:20 AM [facility] BILIRUBIN,TOTAL1.10.3 - 1.2 mg/dL08/11/2025 8:20 AM [facility] CENTEREGFR Non-Race Dependent>90>=60 ml/min/1.73sq.m110/12/2024 8:20 AM [facility] CENTERComment: eGFR not reported due to non-numeric value for Creatinine. Reported eGFR is based on the CKD-EPI 2020 equation that does not use a race coefficient. Specimen (Source)Anatomical Location / LateralityCollection Method / Volume Collection TimeReceived TimeBloodVenous blood / UnknownVenipuncture / Unknown 08/11/2025 7:58 AM EST08/11/2025 8:00 AM EST Narrative Authorizing ProviderResult TypeResult StatusMaphilippe NAM BLOOD ORDERABLESFinal ResultPerforming OrganizationAddressCity/State/ZIP CodePhone Number [facility] [address] [place] [address], * ECG 12 lead (08/11/2025 7:49 AM [...] Relevant to Health Maintenance Insurance * Guarantor: [id number] TypeRelation to PatientDate of BirthAurora West Allis Memorial HospitalBilling AddressCorporateEmployer * Guarantor: Bishop [place] TypeRelation to PatientDate of PhoneBilling AddressCorporateOther [facility] [place] [address] * Guarantor: MILKA Abhijeetjavier TypeRelation to PatientDate of BirthPhone Billing AddressCorporateEmployer * Guarantor: CORRECT CAREAccount TypeRelation to PatientDate of BirthPhone Billing AddressCorporateEmployer Advance Directives * Full Code (Latest Code Status on File) Date ActivatedDate InactivatedComments03/04/2021 9:32 AM03/10/2021 10:20 PM * Full Code Date ActivatedDate InactivatedComments01/16/2018 1:54 PM01/17/2018 3:11 PM Care Teams Team MemberRelationshipSpecialtyStart DateEnd Date Cisco Blanc DO [address] [facility], [place] [address] PCP - GeneralFamily Woecvjxe70/21/25
--- OUTSIDE RECORDS SUMMARY | 2025-08-14 11:48 | XMS_ITS | Encounter Summary ---
Demographics Address [address] [facility] [address] [place] [id number] Home Phone Mobile Phone Email Address Email Address Preferred Language ENG Marital Status Single Temple Affiliation Unknown Race White Ethnic Group or Author Organization [facility] Address [address] [place] [address] Care Team Providers Care Hospice Rn Name Role Phone Tyson Fonseca MD Primary Care Provider Vivian Brady MD Unavailable [phone] Vivian Brady MD Unavailable [phone] Source Comments In the event this information is protected by the Federal Confidentiality of Alcohol and Drug AbusePatient Records regulations: The Federal rules restrict any use of the information to criminally investigate or prosecute any alcohol or drug abuse patient.[facility] Reason for Visit * ReasonCommentsPatient Update Encounter Details DateTypeDepartmentCare Team (Latest Contact Info)Flsvggojhzb04/22/2025Telephone Colorectal Surgery [address] [phone] Lydia Drake PA-C [address] [place], [place] [phone] Patient Update Social History Tobacco UseTypesPacks/DayYears UsedDateSmoking Tobacco: NeverSmokeless Tobacco: NeverArea Deprivation IndexAnswerDate RecordedNational Score (1-100), lower number is lower bfia627902/28/2025State Score (1-10), lower number is lower risk9 02/28/2025Data from: https://www.neighborhoodatlas.medicine.[facility]/. Last address used for rudcuowuogg[address]/28/2025Sex and Gender InformationValueDate RecordedSex Assigned at YxlrfJhue98/17/2025 4:03 PM EDT Legal BugTfis1311/11/2015 1:48 PM EDTGender EsantdoiYbph16/17/2025 4:03 PM EDT Sexual QpiujnpdzfmZuotduib67/17/2025 4:03 PM EDTdocumented as of this encounter Miscellaneous Notes * Telephone Encounter - Lydia Drake PA-C - 08/12/2025 11:09 AM EST Called Chai back. He advised he just completed the first xray and is awaiting an uber tow driver. He got so dizzy after his [...] - 08/12/2025 10:30 AM EST Chai Russell [phone], experiencing constipation so bad its causing him to pass out. He's scheduled to have sitz marker test this week. documented in this encounter Plan of Treatment Not on file documented as of this encounter Visit Diagnoses Not on filedocumented in this encounter Care Teams Team MemberRelationshipSpecialtyStart DateEnd Date Tyson Fonseca MD PCP - GeneralFamely Medicine11/11/15 Vivian Brady MD [address] [place] [address] Gastroenterology01/16/25 Vivian Brady MD [address] [place] [address] FwiadruxgDpodevnukvuwpmlj66/5/25documented as of this encounter
--- OUTSIDE RECORDS SUMMARY | 2025-08-14 11:48 | XMS_ITS | Clinical Summary ---
Author Organization [facility] Healthcare Address [address] [place] [address] Care Team Providers Care Enterostomal Therapy Nurse Name Role Phone Unavailable Primary Care Provider Unavailabl e Social History Tobacco UseTypesPacks/DayYears UsedDateSmoking Tobacco: Never AssessedSex and Gender InformationValueDate RecordedSex Assigned at BirthNot on fileLegal Sex Male11/03/2022 7:16 PM EDTGender IdentityNot on fileSexual OrientationNot on file Last Filed Vital Signs Vital SignReadingTime TakenCommentsBlood Pressure--Pulse--Temperature-- Respiratory Rate--Oxygen Saturation--Inhaled Oxygen Concentration--Trziwz51.8 kg (220 lb)07/29/2020 12:00 PM SRBGbqmfw881.7 cm (5' 8 )07/29/2020 12:00 PM ESTBody Mass Index33.45109/29/2019 12:00 PM EST Plan of Treatment Not on file
--- OUTSIDE RECORDS SUMMARY | 2025-08-14 11:48 | XMS_ITS | Encounter Summary ---
Author Organization [facility] tem Address [facility] [id number] [address] [place] [address] Care Team Providers Care Fire Watchman Name Role Phone GerardoCisco cao Paddy MCLAUGHLIN Primary Care Provider + [phone] Encounter Details DateTypeDepartmentCare Team (Latest Contact Info)Kdmqkimiqkc61/24/2025[facility] Only [facility] [address] [place] [id number] Ref Prov, [place] [address] Social History Tobacco UseTypesPacks/DayYears UsedDateSmoking Tobacco: MyjxgtJolqwjdjlz603 07/23/1985 - 12/20/2018Passive Smoke Exposure: PastSmokeless Tobacco: Never Comments:vape, today Alcohol UseStandard Drinks/WeekCommentsYes0 (1 standard drink = 0.6 oz pure alcohol)OccasionalAHC UtilitiesAnswerDate RecordedIn the past 12 months has the netprice[employer]com, gas, oil, or water [employer] threatened to shut off services in your home?Yes09/11/2024Social Connection and Isolation PanelAnswerDate RecordedIn a typical week, how many times do you talk on the phone with family, friends, or neighbors?Twice a week08/01/2022How often do you get together with friends or relatives?Once a week08/01/2022How often do you attend gnosticism or cheondoism services?Never08/01/2022ctive Member of Clubs or OrganizationsNot on file 08/01/2022How often do you attend meetings of the clubs or organizations you belong to?Never08/01/2022re you , , , , never , or living with a partner?Never rrqvdfr4008/01/2022UDIT-CAnswerDate RecordedQ1: How often do you have a drink containing alcohol?Monthly or less 09/11/2024Q2: How many drinks containing alcohol do you have on a typical day when you are drinking?Patient does not drink09/11/2024Q3: How often do you have six or more drinks on one occasion?Less than jgonooq3409/11/2024Overall Financial Resource Strain (CARDIA)AnswerDate RecordedHow hard is it for you to pay for the very basics like food, housing, medical care, and heating?Very hard12/06/2023 PHQ-2AnswerDate RecordedTotal Flsbi720912/10/2024Finmountain west medical center [place] of Occupational Health - Occupational Stress QuestionnaireAnswerDate [...] household?Yes12/06/2023hildcareAnswerDate RecordedDo problems getting child and family therapist make 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 you to work [...] InformationValueDate RecordedSex Assigned at BirthNot on fileLegal UmiYzkp4603/27/2015 11:30 AM EDTGender IdentityNot on fileSexual OrientationNot on filedocumented as of this encounter Plan of Treatment Not on file documented as of this encounter Goals GoalPatient Goal TypeAssociated ProblemsRecent ProgressPatient-Stated?Author home with [facility] care Jenny Miguel RN Note: Evaluation of progress towards goal: with support from friends and family, patient needs to fllow up with [facility] documented as of this encounter Procedures Procedure NamePriorityDate/TimeAssociated DiagnosisCommentsXR ABDOMEN AP 1 VW Xdbakdx3208/12/2025 9:35 AM ESTdocumented in this encounter Results [...] [facility], [place] [place] [address] PCP - GeneralFamily Clxgohtk34/21/25documented as of this encounter
--- OUTSIDE RECORDS SUMMARY | 2025-08-14 11:48 | XMS_ITS | Encounter Summary ---
Author Organization [facility] Address [id number] [address] [place] [address] Care Team Providers Care Communications Executive Name Role Phone Cisco Blanc DO Primary Care Provider + [phone] Reason for Referral * Medication Prior Authorization - ClosedSpecialtyDiagnoses / ProceduresReferred By ContactReferred To Contact Diagnoses Anal fissure Cisco Blanc DO [address], [facility] [place] [address] Phone: tel: fax: Referral IDStatusReasonStart DateExpiration DateVisits RequestedVisits [id number] Reason for Visit * ReasonOnset DateCommentsMed Aekbbc9808/02/2025 Encounter Details DateTypeDepartmentCare Team (Latest Contact Info)Bavmbegwtit71/12/2025Refill [facility] Internal Medicine - Family Medicine [address] [place] [address] Cisco Blanc DO [address], [facility] [place] [address] Anal fissure Social History Tobacco UseTypesPacks/DayYears UsedDateSmoking Tobacco: ZeincdZaeynpnwvx201 07/23/1985 - 12/20/2018Passive Smoke Exposure: PastSmokeless Tobacco: [...] relatives?Once a week08/01/2022How often do you attend anabaptist or mu-ism services?Never08/01/2022ctive Member of Clubs or OrganizationsNot on file 08/01/2022How often do you attend meetings of the clubs or organizations you belong to?Never08/01/2022re you , , , , never , or living with a partner?Never ybtnjwf8408/01/2022UDIT-CAnswerDate RecordedQ1: How often do you have a drink containing alcohol?Monthly or less 09/11/2024Q2: How many drinks containing alcohol do you have on a typical day when you are drinking?Patient does not drink09/11/2024Q3: How often do you have six or more drinks on one occasion?Less than opctezw2409/11/2024Overall Financial Resource Strain (CARDIA)AnswerDate RecordedHow hard is it for you to pay for the very basics like food, housing, medical care, and heating?Very hard12/06/2023 PHQ-2AnswerDate RecordedTotal Kjpmz579012/10/2024Finblue mountain hospital, inc. [place] of Occupational Health - Occupational Stress QuestionnaireAnswerDate [...] of a household?Yes12/06/2023hildcareAnswerDate RecordedDo problems getting child psychiatrist make 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 you to work [...] InformationValueDate RecordedSex Assigned at BirthNot on fileLegal JtfFiwd4603/27/2015 11:30 AM EDTGender IdentityNot on fileSexual OrientationNot on filedocumented as of this encounter Miscellaneous Notes * Telephone Encounter - Cisco Blanc DO - 08/02/2025 2:29 PM EST Rx's sent in. He no showed last appointment. Please reschedule * Telephone Encounter - Linda Marc CMA - 08/02/2025 2:29 PM EST Left message to reschedule his last appt that he missed. documented in this encounter Plan of Treatment Not on file documented as of this encounter Goals GoalPatient Goal TypeAssociated ProblemsRecent ProgressPatient-Stated?Author home with [facility] care Jenny Miguel, RN Note: Evaluation of progress towards goal: with support from friends and family, patient needs to fllow up with [facility] documented as of this encounter Visit Diagnoses Diagnosis Anal fissure documented in this encounter Additional Health Concerns InfectionOnset DateLast IndicatedResolved TimeRespiratory Rule-Out08/11/2025 8:46 AM ESTAssessmentNoted TimePHQ-9 Depression Total Score: 1:04 PM EDTdocumented as of this encounter Care Teams Team MemberRelationshipSpecialtyStart DateEnd Date Cisco Blanc DO [address] [facility], [facility] [place] [address] PCP - GeneralFamily Dzlmxeby99/21/25documented as of this encounter
--- OUTSIDE RECORDS SUMMARY | 2025-08-14 11:48 | XMS_ITS | Encounter Summary ---
Author Organization [facility] Address [address] [place] [address] Care Team Providers Care Biodiesel Product Manager Name Role Phone Tyson Fonseca MD Primary Care Provider [phone] Vivian Brady MD Unavailable [phone] Vivian Brady MD Unavailable [phone] Source Comments In the event this information is protected by the Federal Confidentiality of Alcohol and Drug AbusePatient Records regulations: The Federal rules restrict any use of the information to criminally investigate or prosecute any alcohol or drug abuse patient.[facility] Reason for Visit * ReasonOnset DateCommentsRefill Ylxsfzs3408/11/2025 Encounter Details DateTypeDepartmentCare Team (Latest Contact Info)Wmmbnuakuoe44/21/2025Refill Colorectal Surgery [address] [phone] Lydia Drake PA-C [address] [place], [place] [phone] Refill Request Social History Tobacco UseTypesPacks/DayYears UsedDateSmoking Tobacco: NeverSmokeless Tobacco: NeverArea Deprivation IndexAnswerDate RecordedNational Score (1-100), lower number is lower nsgd606802/28/2025State Score (1-10), lower number is lower risk9 02/28/2025Data from: https://www.neighborhoodatlas.medicine.[facility].edu/. Last address used for qin[address]02/28/2025Sex and Gender InformationValueDate RecordedSex Assigned at MristEbke30/17/2025 4:03 PM EDT Legal YdeNdzx3611/11/2015 1:48 PM EDTGender HbnxuuyvIqxh32/17/2025 4:03 PM EDT Sexual KvghuzhazqpUpvwgspg97/17/2025 4:03 PM EDTdocumented as of this encounter Plan of Treatment Not on file documented as of this encounter Visit Diagnoses Diagnosis Rectal spasm Anal spasm documented in this encounter Care Teams Team MemberRelationshipSpecialtyStart DateEnd Date Tyson Fonseca MD PCP - GeneralFamily Medicine11/11/15 Vivian Brady MD [address] [place] [phone] Gastroenterology01/16/25 Vivian Brady MD [address] [place] [id number] YhqqwutodXcnphkszkgqoetdp43/5/25documented as of this encounter
--- NOTE | 2025-08-14 12:23 | PC.NURSE ---
right eye bruising with slight swelling.
[2025-08-14 12:53] VITALS: BP 140/95; PULSE 74; O2SAT 100
--- NOTE | 2025-08-14 14:51 | ED.GENADUL1 ---
HPI HPI - General Adult General Chief complaint: Eye Problems Stated complaint: EYE PAIN Time Seen by Provider: 08/14/25 11:15 Source: patient Mode of arrival: walk-in Limitations: no limitations History of Present Illness HPI narrative: Patient is a 54-year-old male presenting to the emergency department for complaints of anxiety. Patient states he has chronic constipation, and because of this, he has severe anxiety. He has history of generalized anxiety disorder, and states that his recent health concerns have exacerbated this. He states he just got an outpatient x-ray of his abdomen 30 minutes prior to coming to the ED. Other than constipation anxiety, the patient has no other complaints. He denies chest pain or shortness of breath. No nausea or vomiting. He is still able to tolerate p.o. He has been following up with his outpatient doctor for the constipation. He states he has a black eye because he was hyperventilating, passed out, and hit his eye. He was seen in an outside ED a few days ago when this happened. Related Data Home Medications ?Medication ?Instructions ?Recorded ?Confirmed clonidine HCl 0.1 mg tablet 0.1 mg PO BID 05/10/25 08/14/25 amlodipine 10 mg tablet 10 mg PO BID 08/14/25 08/14/25 baclofen 10 mg tablet 10 mg PO BID 08/14/25 08/14/25 Previous Rx's ?Medication ?Instructions ?Recorded alprazolam 1 mg tablet (Xanax) 1 mg PO BID PRN anxiety 2 days #4 08/14/25 tabs Allergies Allergy/AdvReac Type Severity Reaction Status Date / Time No Known Drug Allergies Allergy Verified 05/14/25 08:37 Opioid HPI Opioid Management Most Recent Opioid Data: Last Pain Scale 10 Today, 11:23 Ur Phencyclidine Scrn, (NEGATIVE) Negative 05/06/24, 15:20 Review of Systems ROS Status of ROS 10 or more systems reviewed and unremarkable except as noted in history and below PFSH PFSH Social History Little interest or pleasure in doing things: not at all Feeling down, depressed, or hopeless: not at all Exam Narrative Exam Narrative: CONSTITUTIONAL: Patient appears extremely anxious, hyperventilating, answering questions and following commands appropriately SKIN: Was warm and dry. EYES: Right sided periorbital ecchymosis. EOMI. PERRLA. EARS, NOSE, THROAT: Moist oral mucosa. RESPIRATORY: Clear to auscultation bilaterally, no wheezes, crackles, or stridor, no use of accessory muscles CARDIOVASCULAR: Normal rate and regular rhythm. There is no S3, S4, murmur, rub. GASTROINTESTINAL: Abdomen is soft, nontender, nondistended. No rebound tenderness or guarding. MUSCULOSKELETAL: No peripheral edema. NEUROLOGIC: Patient is awake and alert. Facies were symmetrical. Constitutional Vital Signs, click to edit/add: Last Vital Signs Temp 98.1 F 08/14/25 11:23 Pulse 74 08/14/25 12:53 Resp 18 08/14/25 12:53 BP 140/95 H 08/14/25 12:53 Pulse Ox 100 08/14/25 12:53 O2 Del Method Room Air 08/14/25 11:23 Course Vital Signs Vital signs: Vital Signs Temperature 98.1 F 08/14/25 11:23 Pulse Rate 88 08/14/25 11:23 Respiratory Rate 22 H 08/14/25 11:23 Blood Pressure 162/100 H 08/14/25 11:23 Pulse Oximetry 100 08/14/25 11:23 Oxygen Delivery Method Room Air 08/14/25 11:23 Temperature 98.1 F 08/14/25 11:23 Pulse Rate 74 08/14/25 12:53 Respiratory Rate 18 08/14/25 12:53 Blood Pressure 140/95 H 08/14/25 12:53 Pulse Oximetry 100 08/14/25 12:53 Oxygen Delivery Method Room Air 08/14/25 11:23 Medical Decision Making MDM Narrative Medical decision making narrative: Patient is a 54-year-old male, history significant for anxiety, presenting to the emergency department for an acute anxiety attack and chronic constipation. On review of external documentation, patient had an outpatient abdominal x-ray performed an hour prior to his arrival. X-ray demonstrated increased colonic stool compatible with constipation. He had laboratory studies drawn a couple months ago which were unremarkable. His vital signs on arrival during this visit are within normal limits. He is afebrile and hemodynamic stable. Patient appears extremely anxious and is hyperventilating. His abdomen is soft and nontender. Patient's presentation is consistent with acute anxiety attack. Though he is constipated, he shows no signs of obstruction. He is tolerating p.o. without vomiting. Patient's exam is not consistent with surgical etiologies of abdominal pain such as appendicitis, cholecystitis, or perforated viscus. He was given oral alprazolam for symptomatic treatment. On reevaluation 1 hour after benzodiazepine administration, patient appears significantly improved. He is no longer hyperventilating and states his anxiety has resolved. He is requesting to be discharged. I do believe the patient is stable for discharge. They were instructed to follow up with his PCP, states he has an appointment in 2 days. Return precautions were given including any new or worsening symptoms. They were given a prescription for Xanax 1 mg x 4 tablets. Patient understands and agrees to the plan. FINAL IMPRESSION: #Acute anxiety attack #Acute constipation #History of generalized anxiety disorder DISPOSITION: Discharged home CONDITION: Good Medical Records Medical records reviewed: Yes I reviewed the patient's medical records Discharge Plan Discharge Chief Complaint: Eye Problems Clinical Impression: Constipation, Anxiety about health Patient Disposition: Home, Self-Care Time of Disposition Decision: 12:46 Condition: Good Mode of Transportation: Private Vehicle Prescriptions / Home Meds: New alprazolam [Xanax] 1 mg tablet 1 mg PO BID PRN (Reason: anxiety) 2 Days Qty: 4 0RF No Action clonidine HCl 0.1 mg tablet 0.1 mg PO BID amlodipine 10 mg tablet 10 mg PO BID baclofen 10 mg tablet 10 mg PO BID Print Language: Divehi Instructions: Constipation (ED), Anxiety (ED) Additional Instructions: Follow up with your family Referrals: MELY BONILLA [Primary Care Provider, Family Practice] - 1 week Discharge Date/Time: 08/14/25 12:55
== END 2025-08-14 12:55 | disposition home or self-care (01) ==
PROVIDERS: Emergency Provider Student in an Organized Health Care Education/Training Program; PCP Family Medicine
DX: F41.8 Other specified anxiety disorders (principal); K59.00 Constipation, unspecified
CPT/HCPCS: 74018; 99283

== ENCOUNTER 2025-08-16 10:53 | Outpatient (OUT) | payer OTHER, SELFPAY ==
--- OUTSIDE RECORDS SUMMARY | 2025-08-11 07:30 | XMS_ITS | Encounter Summary ---
Author Organization [facility] [employer] [facility] tem Address [facility] [id number] [address] [place] [address] Care Team Providers Care Electric Distribution Checker Name Role Phone Cisco Blanc DO Primary Care Provider + [phone] Reason for Referral * Consultation (Routine) - Pending ReviewSpecialtyDiagnoses / ProceduresReferred By ContactReferred To ContactPlastic & Reconstructive Surgery Diagnoses Closed fracture of right maxillary sinus, initial encounter ([facility]) Closed fracture of right orbital floor, initial encounter ([facility]) Closed fracture of nasal bone, initial encounter Chiquita Steele DO [address] [place] [address] Phone: tel: fax: Dmitry Martinez MD [address] [place] [address] Phone: tel: fax: Referral IDStatusReasonStart DateExpiration DateVisits RequestedVisits [id number] Review Specialty Services Required Reason for Visit * ReasonCommentsSyncope Encounter Details DateTypeDepartmentCare Team (Latest Contact Info)Zyybwxngnjp91/21/2025 7:30 AM EST - 08/11/2025 12:24 PM ESTEmerFayette County [facility] - [facility] [address] [place] [id number] Tere Pantoja MD [address] [id number] Vasovagal syncope (Primary Dx); Closed fracture of right maxillary sinus, initial encounter ([facility]); Closed fracture of right orbital floor, initial encounter ([facility]); Closed fracture of nasal bone, initial encounter Discharge Disposition: Home Social History Tobacco UseTypesPacks/DayYears UsedDateSmoking Tobacco: LhpiscXkazbuahgb929 07/23/1985 - 12/20/2018Passive Smoke Exposure: PastSmokeless Tobacco: Never Comments:vape, today Alcohol UseStandard Drinks/WeekCommentsYes0 (1 standard drink = 0.6 oz pure alcohol)OccasionalAHC UtilitiesAnswerDate RecordedIn the past 12 months has the [employer], gas, oil, or water [employer] threatened to shut off services in your home?Yes09/11/2024Social Connection and Isolation PanelAnswerDate RecordedIn a typical week, how many times do you talk on the phone with family, friends, or neighbors?Twice a week08/01/2022How often do you get together with friends or relatives?Once a week08/01/2022How often do you attend mandaeism or buddhist services?Never08/01/2022ctive Member of Clubs or OrganizationsNot on file 08/01/2022How often do you attend meetings of the clubs or organizations you belong to?Never08/01/2022re you , , , , never , or living with a partner?Never kcmeznf1708/01/2022UDIT-CAnswerDate RecordedQ1: How often do you have a drink containing alcohol?Monthly or less 09/11/2024Q2: How many drinks containing alcohol do you have on a typical day when you are drinking?Patient does not drink09/11/2024Q3: How often do you have six or more drinks on one occasion?Less than siqgsxb3209/11/2024Overall Financial Resource Strain (CARDIA)AnswerDate RecordedHow hard is it for you to pay for the very basics like food, housing, medical care, and heating?Very hard12/06/2023 PHQ-2AnswerDate RecordedTotal Wnbwr942312/10/2024Finmo[facility] [place] of Occupational Health - Occupational Stress QuestionnaireAnswerDate [...] part of a household?Yes12/06/2023hildcareAnswerDate RecordedDo 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 work [...] InformationValueDate RecordedSex Assigned at BirthNot on fileLegal LtlBjcx3203/27/2015 11:30 AM EDTGender IdentityNot on fileSexual OrientationNot on filedocumented as of this encounter Last Filed Vital Signs Vital SignReadingTime TakenCommentsBlood Kocziewa008/5884708/11/2025 12:03 PM EST Qpulf46169/21/2025 12:03 PM AZSKfechyksurq01.4 ??C (97.5 ??F)08/11/2025 7:41 AM ESTRespiratory Kxio730308/11/2025 12:03 PM ESTOxygen Pmxhgjitrq37%08/11/2025 12:03 PM ESTInhaled Oxygen Concentration--Reckxz90.9 kg (174 lb)08/11/2025 7:41 AM EST Zmczms776.7 cm (5' 8 )08/11/2025 7:41 AM ESTBody Mass Index26.4608/11/2025 7:41 AM ESTdocumented in this encounter Functional Status * SafetyQuestionAnswerDate of AssessmentAuthorCall Vera Within ReachYes 08/11/2025 10:00 AM Ty Boston RNBed In Lowest PositionYes 08/11/2025 10:00 AM Ty Boston RNBed Wheels JhnxguBjl25/21/2025 10:00 AM Ty Boston RN * ED [...] Tg Clifford RN * BEE (kcal)AnswerDate of AxnbeajvckQdchjr727817/21/2025 7:41 AM Tg Clifford RN * Pain AssessmentQuestionAnswerDate of AssessmentAuthorPain Intervention(s)None 08/11/2025 7:41 AM Tg Clifford RNPain EjatzkfaIofi08/21/2025 12:03 PM Geeta Birmingham RNPain DescriptorsOther (Comment)08/11/2025 7:41 AM Tg Barcenas RNPain DurationConstant/wrszdmpivs94/21/2025 7:41 AM Tg Barcenas RNPatient's Stated Acceptable Pain LevelNo pain08/11/2025 7:41 AM Tg Clifford RNResponse to InterventionsPain unchanged 08/11/2025 7:41 AM Tg Clifford RNPain TypeAcute pain08/11/2025 12:03 PM Geeta Birmingham RNClinical ProgressionNot rwzphwy1308/11/2025 7:41 AM Tg Barcenas RNPain Assessment0-10110/12/2024 12:03 PM Geeta Birmingham RNPain Zbirj19010/12/2024 12:03 PM Geeta Birmingham RNObserved Behavior Ztniiwma10/21/2025 7:41 AM Tg Clifford RN * Lior Coma ScaleQuestionAnswerDate of AssessmentAuthorEye Veizhyv276/21/2025 7:51 AM Ty Boston RNBe Motor Czjdwfrc894/21/2025 7:51 AM EST Ty Espinoza RNBest Verbal Bmznfqpu804/21/2025 7:51 AM Ty Boston RNGlasgow Coma Scale Pggim6678/21/2025 7:51 AM Ty Boston RN * Patient ObservationQuestionAnswerDate of EnrphqssaiWrmwalPmtarf2385/21/2025 7:41 AM Tg Clifford RNWeight2784110/12/2024 7:41 AM Tg Clifford RN * Musculoskeletal DetailsQuestionAnswerDate of AssessmentAuthorR ShoulderLimited movement;Injury/zzoabi2808/11/2025 7:51 AM Ty Boston RNLower Back Limited movement;Injury/rgbbdv9908/11/2025 7:51 AM Ty Boston RN * BSA (Calculated - sq m)AnswerDate of AssessmentAuthor1.9508/11/2025 7:41 AM Tg Clifford RN * BMI (Calculated)AnswerDate of LpxizaurrqYntkef88.512 7:41 AM Tg Barcenas RN * Height [...] Patient Alert, Oriented and Able to Follow YvjxjopwWgk54/21/2025 7:46 AM Tg Barcenas RNInterventionsSiderails Up x 2;Call Light Within Reach;Assist with Ambulation;Bed in Low Xmwfzhjh71/21/2025 7:46 AM Tg Barcenas RNFall Prevention ScreenPatient has Fallen in the Past 3 Months Due to Tripping, Slipping or Xwfrpimip25/21/2025 7:46 AM Tg Clifford RN * Vital SignsQuestionAnswerDate of LjyaajncutVhrbxcEE707/8387008/11/2025 12:03 PM Geeta Birmingham RNTemp97.512 7:41 AM Tg Clifofrd RNTemp boyXkrj8708/11/2025 7:41 AM Tg Clifford MIAnpwv05278/21/2025 12:03 PM Geeta Birmingham CUZqba1255/21/2025 12:03 PM Geeta Birmingham YAOoQ574 08/11/2025 12:03 PM Geeta Birmingham RNHeart Rate WmayrjMnuscos04/21/2025 7:41 AM Tg Clifford RNBP LocationLeft arm08/11/2025 7:41 AM Tg Barcenas RNBP MmaylcYgqyholux58/21/2025 7:41 AM Tg Clifford RNMAP (mmHg)1187508/11/2025 12:03 PM Geeta Birmingham RNPatient Position Semi-qkwoeww1508/11/2025 7:41 AM Tg Clifford, DELMIS * Oxygen TherapyQuestionAnswerDate of AssessmentAuthorO2 DeviceNone (Room air) 08/11/2025 7:41 AM Tg Clifford, DELMIS * RespiratoryQuestionAnswerDate of AssessmentAuthorBilateral Breath SoundsClear 08/11/2025 7:51 AM Ty Boston RNRespiratory Pattern Irregular;Labored;Nxguecywos66/21/2025 7:51 AM Ty Boston RNChest AssessmentChest expansion isogznyosih88/21/2025 7:51 AM Ty Boston RNCough VwmvgsjAy20/21/2025 7:51 AM Ty Boston, RN * NeurologicalQuestionAnswerDate [...] (WDL)X110/12/2024 12:04 PM Geeta Birmingham RN * Family/Hazard Mitigation Officer NotifiedQuestionAnswerDate of AssessmentAuthor Family/Hazard Mitigation Officer notified of Emergency Department Admission?Patient kwfnlotn47/21/2025 11:55 AM Geeta Birmingham RN * Weight in (lb) to have BMI = 25AnswerDate of OnuppafitvSwkspc923. 7:41 AM Tg Clifford RN * [place] Suicide BehaviorQuestionAnswerDate of AssessmentAuthor6. Have you ever [...] Ty Boston RN * MusculoskeletalQuestionAnswerDate of AssessmentAuthorRUELimited movement;Injury/qrpdbt0908/11/2025 7:51 AM Ty Boston RN Musculoskeletal Additional IuscemhhhwkLi06/21/2025 12:04 PM Geeta Birmingham RNMusculoskeletal (WDL)X110/12/2024 12:04 PM Geeta Birmingham RN * Vitals TimerQuestionAnswerDate of AssessmentAuthorRestart Vitals TimerYes 08/11/2025 12:03 PM Geeta Birmingham RNRestart Vitals IytflVto97/21/2025 12:03 PM Geeta Birmingham RN * Respiratory (WDL)AnswerDate of RyhlnmkjdoKcyxoaJPT19/21/2025 12:02 PM Geeta Schafer RN * TB [...] Clifford RN * Blood Return Present?AnswerDate of NzjduekonwMqdiahYuf92/21/2025 9:52 AM Alyse Pantoja ARRT * [place] Suicide Risk LevelAnswerDate of AssessmentAutWright Memorial Hospital at Suicide Risk 08/11/2025 7:45 AM Tg Clifford RN * SafetyQuestionAnswerDate of AssessmentMount Sinai [facility] & [facility] Instituteospital ID StynHz6008/11/2025 10:00 AM Ty Boston RNCall Vera Within FbpqfEgm16/21/2025 10:00 AM Ty Weinberg RNBed In Lowest RdsgiykkYng43/21/2025 10:00 AM Ty Weinberg RNBed Wheels WruqcwBpo87/21/2025 10:00 AM Ty Boston RNSide Rails Up (Number) 10:00 AM Ty Boston RN * BEE (kcal)AnswerDate of YqfqgorctcLcsstw082394/21/2025 7:41 AM Tg Clifford RN * Patient ObservationQuestionAnswerDate of OxjmntttmuPbvhdvKsumir8053/21/2025 7:41 AM Tg Clifford RNWeight2784110/12/2024 7:41 AM Tg Clifford RN * BSA (Calculated - sq m)AnswerDate of AssessmentAuthor1.9512 7:41 AM Tg Clifford RN * BMI (Calculated)AnswerDate of IwrwlqwmeqJpzsch12.512 7:41 AM Tg Barcenas RN * Height and WeightQuestionAnswerDate of AssessmentAutC[facility] Clinic [facility] MethodStated 08/11/2025 7:41 AM Tg Clifford RN * Vital SignsQuestionAnswerDate of JhpaadkcjfMhwiorZC594/5451308/11/2025 12:03 PM Geeta Birmingham RNTemp97.512 7:41 AM Tg Clifford RNTemp nbmRxhk1708/11/2025 7:41 AM Tg Clifford DQWkjas23832/21/2025 12:03 PM Geeta Birmingham HQTgla0863/21/2025 12:03 PM Geeta Birmingham WXPvH054 08/11/2025 12:03 PM Geeta Birmingham RNHeart Rate VhrjqyRxgqtqf20/21/2025 7:41 AM Tg Clifford RNBP LocationLeft arm08/11/2025 7:41 AM Tg Barcenas RNBP VdessxKzqxoreou01/21/2025 7:41 AM Tg Clifford RNMAP (mmHg)3985808/11/2025 12:03 PM Geeta Birmingham RNPatipratima Position Semi-igfcrkl3508/11/2025 7:41 AM Tg Clifford RN * Weight in (lb) to have BMI = 25AnswerDate of WzxrrathlzYykmyo934. 7:41 AM Tg Clifford RN documented as of this encounter Mental Status * Pain AssessmentQuestionAnswerEntry DateAuthorPain EssbayunNovj98/21/2025 12:03 PM Geeta Birmingham RNPain DescriptorsOther (Comment)08/11/2025 7:41 AM Tg Barcenas RNPain DurationConstant/hulhxgljmt38/21/2025 7:41 AM Tg Barcenas RNPatient's Stated Acceptable Pain LevelNo pain08/11/2025 7:41 AM Tg Clifford RNResponse to InterventionsPain unchanged 08/11/2025 7:41 AM Tg Clifford RNPain Assessment0-1012/ 12:03 PM Geeta Birmingham RNPain Unfty29610/12/2024 12:03 PM Geeta Birmingham RN Observed BbwoysxhTojjzvnv00/21/2025 7:41 AM Tg Clifford RN * Muse Coma ScaleQuestionAnswerEntry DateAuthorEye Fppdoqp019/21/2025 7:51 AM Ty Boston RNBest Motor Bsbkcfuv093/21/2025 7:51 AM Ty Boston RNBest Verbal Atgyxnff202/21/2025 7:51 AM Ty Boston RN Lior Coma Scale Yfdpp2563/21/2025 7:51 AM Ty Boston RN * Musculoskeletal DetailsQuestionAnswerEntry DateAuthorR ShoulderLimited movement;Injury/kjcsea6908/11/2025 7:51 AM Ty Boston RNLower Back Limited movement;Injury/owkpxq1308/11/2025 7:51 AM Ty Boston RN * Vital SignsQuestionAnswerEntry PtswZshexcNM218/5272808/11/2025 12:03 PM Geeta Schafer RNTemp97.512 7:41 AM Tg Clifford RNTemp src Oral08/11/2025 7:41 AM Tg Clifford, AXGjqmq78358/21/2025 12:03 PM Geeta Schafer YBPlpr9254/21/2025 12:03 PM Geeta Birmingham, ZLEwV609 08/11/2025 12:03 PM Geeta Birmingham RNHeart Rate GvxdhyVdxxeqw41/21/2025 7:41 AM Tg Clifford RNBP LocationLeft arm08/11/2025 7:41 AM Tg Barcenas RNBP TtuydgWrrybcqon27/21/2025 7:41 AM Tg Clifford, RNMAP (mmHg)1948708/11/2025 12:03 PM Geeta Birmingham RNPatient Position Semi-eayxkbt7808/11/2025 7:41 AM Tg Clifford RN * Oxygen TherapyQuestionAnswerEntry DateAuthorO2 DeviceNone (Room air)08/11/2025 7:41 AM Tg Clifford RN * RespiratoryQuestionAnswerEntry DateAuthorBilateral Breath SoundsClear 08/11/2025 7:51 AM Ty Boston RNRespiratory Pattern Irregular;Labored;Osbkdtvlqu11/21/2025 7:51 AM Ty Boston RNChest AssessmentChest expansion thiozuhgtsu38/21/2025 7:51 AM Ty Boston RN * NeurologicalQuestionAnswerEntry DateAuthorNeuro (WDL)WDL110/12/2024 7:51 AM Ty Weinberg RN * HEENTQuestionAnswerEntry DateAuthorR EyeOther (Comment)08/11/2025 12:04 PM Geeta Schafer RN * Skin Color/ConditionQuestionAnswerEntry DateAuthorSkin ZwrqaWuti40/21/2025 7:51 AM Ty Boston RNSkin TempWarm;Dry08/11/2025 7:51 AM Ty Weinberg RN * MusculoskeletalQuestionAnswerEntry DateAuthorRUELimited movement;Injury/trauma 08/11/2025 7:51 AM Ty Boston RNMusculoskeletal Additional OdobjfkxjavIi22/21/2025 12:04 PM Geeta Birmingham RN documented in [...] to evaluate you and monitor your health [facility]. * Attachments The following attachments cannot be sent through Care Everywhere. * Fainting in adults ??? ED discharge instructions (Sammarinese) * Nose fracture (Sammarinese) * Facial fractures (Sammarinese) documented in this encounter Medications at Time [...] fracture of right maxillary sinus, initial encounter ([facility]),Closed fracture of right orbital floor, initial encounter ([facility]), Closed fracture of nasal bone, initial [...] the original note were not included. [facility] - EMERGENCY Pt Name: Chai Russell Birthdate: [...] foot 02/18/2025 Depression Moderate benzodiazepine use disorder ([facility]) Past Surgical History: Past Surgical History: Procedure Laterality Date APPENDECTOMY COLONOSCOPY N/A 10/17/2019 Performed by Ty Burciaga DO at [facility] COLONOSCOPY DIAGNOSTIC / SCREENING N/A 02/17/2024 Performed by Ty Burciaga DO at [facility] DECOMPRESSION FASCIOTOMY LEG 12/24/2015 Family History: [...] 20 min Stress: Stress Concern Present (08/01/2022) [place] of Occupational Health - Occupational Stress Questionnaire Feeling of Stress : Very much Social Connections: Socially Isolated (08/01/2022) Social Connection and Isolation Panel Frequency of Communication with Friends and Family: Twice a week Frequency of Social Gatherings with Friends and Family: Once a week Attends Protestant Services: Never Attends Club or Organization Meetings: [...] of 08/12/25 0337 Sun Aug 11, 2025 5138 On exam, patient I have you states [...] fracture of right maxillary sinus, initial encounter ([facility]) - lateral, anterior and inferior salcedo Closed fracture of right [place] floor, [place] Closed fracture of nasal bone, initial encounter [...] 08/11/25 0759 Ney Montejo 08/11/25 1110 Ney Mnotejo 08/11/25 1135 Ney Montejo 08/11/25 1146 Tere [...] fracture of right maxillary sinus, initial encounter ([facility]) Closed fracture of right orbital floor, initial encounter ([facility]) Closed fracture of nasal bone, initial encounter 1 Occurrences starting 08/11/2025 until 08/11/2026documented as of this encounter Goals GoalPatient Goal TypeAssociated ProblemsRecent ProgressPatient-Stated?Author home with self care Jenny Miguel RN Note: Evaluation of progress towards goal: with support from friends and family, patient needs to fllow up with [facility] upon Dc documented as of this encounter Procedures Procedure NamePriorityDate/TimeAssociated NsvzjhsyiWaggxsqjLWNPNJMFDKR02/21/2025 11:[address] CTA NGHZGIPSL26/21/2025 9:[address] FACIAL BONES WO VOCUUBAU10/21/2025 9:[address] CERVICAL SPINE WO FLOPTDRI54/21/2025 9:[address] BRAIN WO JFTPEAYA19/21/2025 9:34 AM EST XR CHEST 2 HSCQDKI59/21/2025 9:28 AM EST TROP I, HIGH SENSITIVITY 1 CTKRPQND83/21/2025 8:57 AM EST SARS/FLU A+B/RSV BY NAAT/MOLECULAR (M4RT COLLECTION TUBE)STAT110/12/2024 8:00 AM EST TROPONIN I, HIGH SENSITIVITY 0 NWBZXUIX86/21/2025 7:58 AM EST TROPONIN I, HIGH SENSITIVITY 0 GTFTHWOW32/21/2025 7:58 AM EST LACTATE W/ KIAKYALFAI87/21/2025 7:58 AM EST THYROID PROFILE INCLUDES TSH HS0MBWJ9008/11/2025 7:58 AM EST CBC WITH AUTO XLMWQHRKUKWAZLHE70/21/2025 7:58 AM EST NNCEVKFT03/21/2025 7:58 AM EST PROTIME & FKLBJHE3508/11/2025 7:58 AM EST D-BYIXXYRSZ92/21/2025 7:58 AM EST BJVRIVCJZLJXF67/21/2025 7:58 AM EST BAUTRQMJWX91/21/2025 7:58 AM EST HVIZSXLAGSR10/21/2025 7:58 AM EST COMPREHENSIVE METABOLIC MZOXBSCND74/21/2025 7:58 AM EST ECG 12-JIKFLFXG36/21/2025 7:49 AM EST documented in this encounter Results * (ABNORMAL) Lactate (08/11/2025 11:56 AM EST)ComponentValueRef RangeTest Method Analysis TimePerformed AtPathologist SignatureLACTATE2.3(H)0.4 - 2.0 mmol/L 08/11/2025 12:16 PM ESTPROMEDICA FRESNO HEART & SURGICAL HOSPITALpecimen (Source) Anatomical Location / LateralityCollection Method / VolumeCollection Time Received TimeBloodVenous blood / UnknownVenipuncture / Zjdacue2308/11/2025 11:56 AM EST08/11/2025 11:58 AM EST Narrative Authorizing ProviderResult TypeResult StatusMaphilippe NAM BLOOD ORDERABLESFinal ResultPerforming OrganizationAddressCity/State/ZIP CodePhone Number [facility] [address] [place] [address], * CT angiogram chest (08/11/2025 9:51 AM [...] on 08/11/2025 10:08 AM Authorizing ProviderResult TypeResult StatusRaritan Bay Medical Center, Old Bridgecristobal Steele [facility] ORDERABLES Final Result * CT facial [...] SignatureTROPONIN I, HIGH SENSITIVITY2<21 ng/L110/12/2024 9:34 AM [facility] Specimen (Source)Anatomical Location / LateralityCollection Method / Volume Collection TimeReceived TimeBloodVenous blood / UnknownVenipuncture / Unknown 08/11/2025 8:57 AM EST08/11/2025 9:03 AM EST Narrative Authorizing ProviderResult TypeResult StatusTere Pantoja MDLAB BLOOD ORDERABLESFinal ResultPerforming OrganizationAddressCity/State/ZIP CodePhone Number [facility] [address] [place] [address], * SARS/FLU A+B/RSV by NAAT/Molecular (M4RT Collection Tube) (08/11/2025 8:00 AM EST)ComponentValueRef RangeTest MethodAnalysis TimePerformed AtPathologist SignatureFLU A PZXPccmbwhvGlkwigsg45/21/2025 8:46 AM ESTSALEM REGIONAL MEDICAL CENTERFLU B HDCLippqadeVlewnocn91/21/2025 8:46 AM ESTSALEM REGIONAL MEDICAL CENTERRSV BY EPIEophszorPerdeujs07/21/2025 8:46 AM EST [facility] COV 2 BY PCRNot DetectedNot Detected 08/11/2025 8:46 AM [facility]) Anatomical Location / LateralityCollection Method / VolumeCollection Time Received TimeSwabNasopharyngeal structure / Njscoqa1108/11/2025 8:00 AM EST 08/11/2025 8:09 AM EST Narrative [facility] - 08/11/2025 8:46 AM EST The Xpert [...] operators who are performing tests using either [employer] or iPower[employer] systems and is limited to laboratories that [...] GENERAL ORDERABLESFinal ResultPerforming OrganizationAddressCity/State/ZIP Code Phone Number [facility] [address] [place] [address], [place] * (ABNORMAL) D-Dimer (08/11/2025 7:58 AM EST)ComponentValueRef RangeTest Method Analysis TimePerformed AtPathologist SignatureD KUFJB075(H)1 - 255 ng/mL 08/11/2025 8:11 AM [facility]Comment:Results >255 ng/mL DDU: Results may be [...] TimeReceived TimeBloodVenous blood / Unknown Venipuncture / Ybgtfrh4308/11/2025 7:58 AM EST08/11/2025 8:00 AM EST Narrative Authorizing ProviderResult TypeResult StatusTere NAM BLOOD ORDERABLESFinal ResultPerforming OrganizationAddressCity/State/[facility] CenterPhone Number [address] [place] [address], [place] * Troponin I, High Sensitivity 0 Hour (08/11/2025 7:58 AM EST)ComponentValueRef RangeTest MethodAnalysis TimePerformed AtPathologist SignatureTROPONIN I, HIGH SENSITIVITY3<21 ng/L110/12/2024 8:29 AM [facility] Specimen (Source)Anatomical Location / LateralityCollection Method / Volume Collection TimeReceived TimeBloodVenous blood / UnknownVenipuncture / Unknown 08/11/2025 7:58 AM EST08/11/2025 8:00 AM EST Narrative Authorizing ProviderResult TypeResult StatusMaphilippe Pantoja MDLAB BLOOD ORDERABLESFinal ResultPerforming OrganizationAddressty/State/[facility] CenterPhone Number [address] [place] [address], [place] * Thyroid profile includes TSH FT4 (08/11/2025 7:58 AM EST)ComponentValueRef RangeTest MethodAnalysis TimePerformed AtPathologist SignatureFREE T40.720.61 - 1.60 ng/dL08/11/2025 8:40 AM [facility]ITALTSH2.29 0.49 - 4.67 uIU/mL08/11/2025 8:40 AM [facility] Specimen (Source)Anatomical Location / LateralityCollection Method / Volume Collection TimeReceived TimeBloodVenous blood / UnknownVenipuncture / Unknown 08/11/2025 7:58 AM EST08/11/2025 8:00 AM EST Narrative Authorizing ProviderResult TypeResult StatusTere Pantoja MDLAB BLOOD ORDERABLESFinal ResultPerforming OrganizationAddressCity/State/[place] [address], [place] * Ethanol (08/11/2025 7:58 AM EST)ComponentValueRef RangeTest MethodAnalysis TimePerformed AtPathologist SignatureETHANOL<0.01<=0.08 g/dL08/11/2025 8:20 AM [facility]ITALComment: This report is intended for use in clinical monitoring or management of patients. Specimen (Source)Anatomical Location / LateralityCollection Method / Volume Collection TimeReceived TimeBloodVenous blood / UnknownVenipuncture / Unknown 08/11/2025 7:58 AM EST08/11/2025 8:00 AM EST Narrative Authorizing ProviderResult TypeResult StatusTere Pantoja MDLAB BLOOD ORDERABLESFinal ResultPerforming OrganizationAddressty/State/ZIP CodePhone Number [address] [address], [place] * Magnesium (08/11/2025 7:58 AM EST)ComponentValueRef RangeTest MethodAnalysis TimePerformed AtPathologist SignatureMAGNESIUM2.21.8 - 2.6 mg/dL08/11/2025 8:20 AM [facility]ITALpecimen (Source)Anatomical Location / LateralityCollection Method / VolumeCollection TimeReceived Time BloodVenous blood / UnknownVenipuncture / Pfnyqiq4208/11/2025 7:58 AM EST 08/11/2025 8:00 AM EST Narrative Authorizing ProviderResult TypeResult StatusTere Pantoja MDLAB BLOOD ORDERABLESFinal ResultPerforming OrganizationAddressCity/State/ZIP CodePhone Number [address] [place] [address], [place] * (ABNORMAL) Lipase (08/11/2025 7:58 AM EST)ComponentValueRef RangeTest Method Analysis TimePerformed AtPathologist XpdtviywvFFMYFA82(H)17 - 40 U/L110/12/2024 8:17 AM ESTBARNEY CHILDREN'S MEDICAL CENTERpecimen (Source)Anatomical Location / LateralityCollection Method / VolumeCollection TimeReceived Time BloodVenous blood / UnknownVenipuncture / Lejfhni9308/11/2025 7:58 AM EST 08/11/2025 8:00 AM EST Narrative Authorizing ProviderResult TypeResult StatusTere NAM BLOOD ORDERABLESFinal ResultPerforming OrganizationAddressCity/State/ZIP CodePhone Number [address] [place] [address], [place] * (ABNORMAL) Lactate w/ Reflex (08/11/2025 7:58 AM EST)ComponentValueRef Range Test MethodAnalysis TimePerformed AtPathologist SignatureLACTATE W/REFLEX5.1 (HH)0.4 - 2.0 mmol/L110/12/2024 8:44 AM [facility]SAL[facility] Specimen (Source)Anatomical Location / LateralityCollection Method / Volume Collection TimeReceived TimeBloodVenous blood / UnknownVenipuncture / Unknown 08/11/2025 7:58 AM EST08/11/2025 8:00 AM EST Narrative Authorizing ProviderResult TypeResult StatusTere Pantoja MDLAB BLOOD ORDERABLESFinal ResultPerforming OrganizationAddressCity/State/ZIP CodePhone Number [address] [place] [address], [place] * (ABNORMAL) Comprehensive metabolic panel (08/11/2025 7:58 AM EST)Component ValueRef RangeTest MethodAnalysis TimePerformed AtPathologist SignatureSODIUM 422151 - 146 mmol/L110/12/2024 8:20 AM [facility] POTASSIUM4.63.5 - 5.0 mmol/L110/12/2024 8:20 AM ESTSALEM REGIONAL MEDICAL CENTERCHLORIDE10598 - 109 mmol/L110/12/2024 8:20 AM [facility]ITALCARBON VQGHBPN38(L)22 - 32 mmol/L110/12/2024 8:20 AM EST [facility] CENTERANION HNR390 - 15 mmol/L110/12/2024 8:20 AM [facility]ITALBLOOD UREA FCHAQBCJ11 - 23 mg/dL 08/11/2025 8:20 AM [facility]PITALCREATININE0.930.70 - 1.20 mg/dL08/11/2025 8:20 AM [facility] HOSPITALComment: METHOD TRACEABLE TO IDMS NJHXVYEQLCRIIAW686(H)65 - 99 mg/dL08/11/2025 8:20 AM [facility]CALCIUM9.68.5 - 10.5 mg/dL08/11/2025 8:20 AM [facility]ITALTOTAL PROTEIN7.86.0 - 8.0 g/dL 08/11/2025 8:20 AM [facility]ITALALBUMIN4.73.2 - 5.3 g/dL08/11/2025 8:20 AM [facility]OSPITALALKALINE HOIALANHAMS68247 - 130 U/L110/12/2024 8:20 AM [facility]ITALAST32<=41 U/L110/12/2024 8:20 AM [facility] ALT33<=40 U/L110/12/2024 8:20 AM [facility] BILIRUBIN,TOTAL1.10.3 - 1.2 mg/dL08/11/2025 8:20 AM [facility] HOSPITALEGFR Non-Race Dependent>90>=60 ml/min/1.73sq.m110/12/2024 8:20 AM [facility]PITALComment: eGFR not reported due to non-numeric value for Creatinine. Reported eGFR is based on the CKD-EPI 2020 equation that does not use a race coefficient. Specimen (Source)Anatomical Location / LateralityCollection Method / Volume Collection TimeReceived TimeBloodVenous blood / UnknownVenipuncture / Unknown 08/11/2025 7:58 AM EST08/11/2025 8:00 AM EST Narrative Authorizing ProviderResult TypeResult StatusTere NAM BLOOD ORDERABLESFinal ResultPerforming OrganizationAddressCity/State/ZIP CodePhone Number [address] [place] [address], [place] * APTT (08/11/2025 7:58 AM EST)ComponentValueRef RangeTest MethodAnalysis Time Performed AtPathologist AouupfqhyLOQO6312 - 37 sec08/11/2025 8:11 AM EST [facility] (Source)Anatomical Location / LateralityCollection Method / VolumeCollection TimeReceived TimeBloodVenous blood / UnknownVenipuncture / Vjafckb0608/11/2025 7:58 AM EST08/11/2025 8:00 AM EST Narrative Authorizing ProviderResult TypeResult StatusTere NAM BLOOD ORDERABLESFinal ResultPerforming OrganizationAddressCity/State/ZIP CodePhone Number [address] [place] [address], [place] * Protime & INR (08/11/2025 7:58 AM EST)ComponentValueRef RangeTest Method Analysis TimePerformed AtPathologist DzdairvulFOYPTKP02.89.8 - 13.2 sec 08/11/2025 8:11 AM ESTSAL[facility] CENTERINR1.00.9 - 1.2 08/11/2025 8:11 AM [facility] (Source) Anatomical Location / LateralityCollection Method / VolumeCollection Time Received TimeBloodVenous blood / UnknownVenipuncture / Dulmqut0208/11/2025 7:58 AM EST08/11/2025 8:00 AM EST Narrative Authorizing ProviderResult TypeResult StatusTere NAM BLOOD ORDERABLESFinal ResultPerforming OrganizationAddressty/State/ZIP CodePhone Number [address] [place] [address], [place] * (ABNORMAL) CBC auto differential (08/11/2025 7:58 AM EST)ComponentValueRef RangeTest MethodAnalysis TimePerformed AtPathologist SignatureWBC6.34 - 11 10^9/L1/ 8:04 AM ESTPROBREA COMMUNITY HOSPITALRBC Count4.70 4.1 - 5.7 10^12/L110/12/2024 8:04 AM [facility] Hagawimdpn68.113 - 17 g/dL08/11/2025 8:04 AM ESTPROMEDIRIDGECREST REGIONAL HOSPITALHematocrit42.839 - 50 %08/11/2025 8:04 AM [facility] LIMAV9180 - 100 fL08/11/2025 8:04 AM [facility] LIMAH32.127 - 34 pg08/11/2025 8:04 AM [facility] LIMAHC35.332 - 36 g/dL08/11/2025 8:04 AM [facility]ITALRDW12.711.5 - 15 %08/11/2025 8:04 AM [facility]OSPITALPlatelet Tiviy630768 - 450 10^9/L110/12/2024 8:04 AM EST [facility] CENTERMPV8.97 - 12 fL08/11/2025 8:04 AM EST [facility] CENTERNeutrophils %39.0%08/11/2025 8:04 AM EST [facility] CENTERLymphocytes %40.5%08/11/2025 8:04 AM EST [facility]OSPITALMonocytes %7.1%08/11/2025 8:04 AM EST [facility] HOSPITALEosinophils %12.5%08/11/2025 8:04 AM EST [facility]ITALBasophils %0.9%08/11/2025 8:04 AM EST [facility]OMHAY[facility] HOSPITALNeutrophils Absolute (A)2.51.5 - 6.6 10^9/L 08/11/2025 8:04 AM ESTPROMEDIRIDGECREST REGIONAL HOSPITALLymphocytes Absolute 2.61.0 - 3.5 10^9/L110/12/2024 8:04 AM [facility] Monocytes Absolute0.50.0 - 0.9 10^9/L110/12/2024 8:04 AM [facility]ITALEosinophils Absolute0.8(H)0.0 - 0.4 10^9/L110/12/2024 8:04 AM [facility]ITALBasophils Absolute0.10.0 - 0.2 10^9/L 08/11/2025 8:04 AM [facility]PITALDifferential Type AUTOMATED OUEQZMCATRVX55/21/2025 8:04 AM [facility] (Source)Anatomical Location / LateralityCollection Method / VolumeCollection TimeReceived TimeBloodVenous blood / UnknownVenipuncture / Goqvyit1208/11/2025 7:58 AM EST08/11/2025 8:00 AM EST Narrative Authorizing ProviderResult TypeResult StatusTere NAM BLOOD ORDERABLESFinal ResultPerforming OrganizationAddressCity/State/ZIP CodePhone Number [place] [phone] [place] [address], * ECG 12 lead (08/11/2025 7:49 AM EST)Specimen (Source)Anatomical Location / LateralityCollection Method / VolumeCollection TimeReceived Time08/11/2025 7:49 AM EST Narrative TRACEMASTERVUE - 08/11/2025 11:08 AM EST Authorizing ProviderResult TypeResult StatusTere LITTLEJHONG ORDERABLES Final ResultPerforming OrganizationAddressCity/State/ZIP CodePhone Number TRACEMASTERVUE documented in this encounter Visit Diagnoses Diagnosis Vasovagal syncope- Primary Syncope and collapse Closed fracture of right maxillary sinus, initial encounter ([facility]) Closed fracture of right orbital floor, initial encounter ([facility]) Closed fracture of nasal bone, initial encounter documented in this encounter Administered Medications Medication OrderMAR ActionAction DateDoseRateSite iohexoL (OMNIPAQUE) 350 mg iodine/mL injection 100 mL 100 mL, intravenous, Once in imaging, contrast, Starting on 08/11/25 at 0945, For 1 dose, VESICANT (RED) Given08/11/2025 9:52 AM TON822 mL ketorolac (TORADOL) injection 30 mg 30 [...] 1 dose New Bag08/11/2025 8:30 AM EST1,000 bE5154 mL/hr sodium chloride 0.9 % flush 10 [...] - Provider: NGA Braun - Comment: Lot #[id number] 04/02/2028) sodium chloride 0.9 % flush 10 [...] DateEnd Date Cisco Blanc DO [address] [facility] [place] [address] PCP - GeneralFamily Ifrctyzl38/21/25documented as of this encounter
--- OUTSIDE RECORDS SUMMARY | 2025-08-16 10:58 | XMS_ITS | Clinical Summary ---
Author Organization [employer] tem Address [id number] [address] [place] [address] Care Team Providers Care Head Neck Surgeon Name Role Phone Cisco Blanc DO Primary [...] fracture of right maxillary sinus, initial encounter ([facility]),Closed fracture of right orbital floor, initial encounter ([facility]), Closed fracture of nasal bone, [...] 152 g Discontinued(Reorder) Active Problems ProblemNoted DateDiagnosed JqgoZrimaijfig58/21/2025Irritable bowel syndrome with both constipation and yfeygbmb19/21/2025hange in bowel tuiwmn234Paranoid ivoavuvh67/19/2024Polysubstance abuse4Persistent bweqbuna74/29/2023 Chronic idiopathic wkztggrveoas16/14/2022lass 1 obesity due to excess calories with serious comorbidity and body mass index (BMI) of 32.0 to 32.9 in adult 08/04/2022Hypogonadism in male10/12/2021OVID-1902Delirium tremens 03/09/2021evere episode of recurrent major depressive disorder, without psychotic shikhwhn72/19/2021ssential hypertension, kawngb1803/09/2021hronic hepatitis C without hepatic coma4785Sfauzzrci00/17/2021Acute hypoxemic respiratory zaehhic63/14/2021Polyp of sigmoid colon10/17/2019Diverticulosis 10/17/2019Non-traumatic rtlkoxyykpdhin10/27/2018Compartment syndrome of hand 12/29/2015Internal impingement of right kimgnaka64/09/4866Gmoosxo62/09/2015 Resolved Problems ProblemNoted DateDiagnosed DateResolved DateColon cancer ihirgysqv82/21/2020 10/17/20196026Fjapydjuni39/29/2023 Encounters DateTypeDepartmentCare PiueQmomzjoggvl00/24/2025Orders Only [facility] [address] [place] [address] Ref Prov, Not In System 08/11/2025 7:30 AM EST - 08/11/2025 12:24 PM [facility] [address] [place] [phone] Tere Pantoja MD Vasovagal syncope (Primary Dx); Closed fracture of right maxillary sinus, initial encounter (CMS-HCC); Closed fracture of right orbital floor, initial encounter (CMS-HCC); Closed fracture of nasal bone, initial encounter Discharge Disposition: Home08/11/2025Refill [facility] [address] [place] [address] Cisco Blanc, DO 08/11/20252905Ttuacw00/12/2025Refill [facility] [address] [place] [address] Cisco Blanc, DO Anal sczczil6506/06/2025Orders Only [facility] [address] [place] [address] Ref Prov, Not In System 05/20/2025 10:39 AM EDT - 05/20/2025 11:14 AM EDTEOhio[facility] [address] [place] [phone] Rohit Renner MD Irritable bowel syndrome with both constipation and diarrhea (Primary Dx); Anxiety Discharge Disposition: Home05/20/2025Travelfrom Last 3 Months Immunizations ImmunizationAdministration DatesNext DueInfluenza, Injectable, quadrivalent (PF) 06/20/2021,04/06/2020,06/07/2019Tdap10/27/2013 Family History Medical HistoryRelationNameCommentsHypertensionBrother 1JohnNo Known Problems Brother 2RobertNo Known ProblemsDaughterCoronary artery diseaseFatherHeart attackFatherHeart attackMaternal GrandfatherHypertensionMotherHeart attack Paternal GrandfatherRelationNameStatusCommentsBrother 1JohnAliveBrother 2Robert AliveDaughterAliveFatherAliveMaternal GrandfatherMotherAlivePaternal Grandfather Social History Tobacco UseTypesPacks/DayYears UsedDateSmoking Tobacco: UkobukPvnhgwfhax278 07/23/1985 - 12/20/2018Passive Smoke Exposure: PastSmokeless Tobacco: Never Tobacco Cessation:Counseling Given: Not Answered Comments:vape, today Alcohol UseStandard Drinks/WeekCommentsYes0 (1 standard drink = 0.6 oz pure alcohol)OccasionalAHC UtilitiesAnswerDate RecordedIn the past 12 months has the [place], gas, oil, or water [employer] threatened to shut off services in your home?Yes09/11/2024Social Connection and Isolation PanelAnswerDate RecordedIn a typical week, how many times do you talk on the phone with family, friends, or neighbors?Twice a week08/01/2022How often do you get together with friends or relatives?Once a week08/01/2022How often do you attend rastafari or mormonism services?Never08/01/2022ctive Member of Clubs or OrganizationsNot on file 08/01/2022How often do you attend meetings of the clubs or organizations you belong to?Never08/01/2022re you , , , , never , or living with a partner?Never pazazlf6308/01/2022UDIT-CAnswerDate RecordedQ1: How often do you have a drink containing alcohol?Monthly or less 09/11/2024Q2: How many drinks containing alcohol do you have on a typical day when you are drinking?Patient does not drink09/11/2024Q3: How often do you have six or more drinks on one occasion?Less than sfwrrab1509/11/2024Overall Financial Resource Strain (CARDIA)AnswerDate RecordedHow hard is it for you to pay for the very basics like food, housing, medical care, and heating?Very hard12/06/2023 PHQ-2AnswerDate RecordedTotal Dbtjq786812/10/2024Finblue mountain hospital, inc. [place] of Occupational Health - Occupational Stress QuestionnaireAnswerDate [...] InformationValueDate RecordedSex Assigned at BirthNot on fileLegal JwcYfne0503/27/2015 11:30 AM EDTGender IdentityNot on fileSexual OrientationNot on file Last Filed Vital Signs Vital SignReadingTime TakenCommentsBlood Ycgrbwxm986/8604308/11/2025 12:03 PM EST Otkjm53150/21/2025 12:03 PM IRQQlhqukmfsns07.4 ??C (97.5 ??F)08/11/2025 7:41 AM ESTRespiratory Vhqp3573 12:03 PM ESTOxygen Xpjlbyzovq07%08/11/2025 12:03 PM ESTInhaled Oxygen Concentration--Zogmlk22.9 kg (174 lb)08/11/2025 7:41 AM EST Lwypmv748.7 cm (5' 8 )08/11/2025 7:41 AM ESTBody Mass Index26.4608/11/2025 7:41 AM EST Plan of Treatment Health MaintenanceDue DateLast DoneCommentsAdult BMI Follow Up Plan1986 COVID-19 Vaccine ( season), 12/08/2020, 11/18/2020Influenza Lwfweia99, 04/06/2020, 06/07/2019 Depression Byhetztuq85Zoster (Shingles) Vaccine (1 of 2) 12/10/2025Postponed from 2018 (Patient Refused)Adult BMI Screening Tobacco Razpgponh69olonoscopy02/16/2034 02/17/2024, 4DTaP,Tdap and Td Vaccines (3 - Td or Tdap)06/12/2035 06/12/2025, 10/27/2013 Goals GoalPatient Goal TypeAssociated ProblemsRecent ProgressPatient-Stated?Author home with self care Jenny Miguel RN Note: Evaluation of progress towards goal: with support from friends and family, patient needs to fllow up with [facility] upon [employer] Not on file Procedures Procedure NamePriorityDate/TimeAssociated DiagnosisCommentsXR ABDOMEN AP 1 VW Bfzhmhv3908/12/2025 9:35 AM JZOYMEREVFFEGP67/21/2025 11:[address] CTA VYKNKPZRA87/21/2025 9:[address] FACIAL BONES WO YBOTBNDU41/21/2025 9:[address] CERVICAL SPINE WO IIDRAVEN55/21/2025 9:[address] BRAIN WO JVIXITJH08/21/2025 9:34 AM EST XR CHEST 2 WHEOHPK41/21/2025 9:28 AM EST TROP I, HIGH SENSITIVITY 1 QBCDRDCD70/21/2025 8:57 AM EST SARS/FLU A+B/RSV BY NAAT/MOLECULAR (M4RT COLLECTION TUBE)STAT110/12/2024 8:00 AM EST D-KQHMTMHNQ77/21/2025 7:58 AM EST TROPONIN I, HIGH SENSITIVITY 0 SMWIIUES33/21/2025 7:58 AM EST THYROID PROFILE INCLUDES TSH VL8HTBF3208/11/2025 7:58 AM EST ZMDURBVPEDE47/21/2025 7:58 AM EST TROPONIN I, HIGH SENSITIVITY 0 WBBCUOHY02/21/2025 7:58 AM EST UUVRCSCQMODAN62/21/2025 7:58 AM EST TYMEGEBPZV86/21/2025 7:58 AM EST LACTATE W/ DAYOQHCCSB31/21/2025 7:58 AM EST COMPREHENSIVE METABOLIC SHNGSJXHE69/21/2025 7:58 AM EST MBMYIBLS18/21/2025 7:58 AM EST PROTIME & MGJRIKB0808/11/2025 7:58 AM EST CBC WITH AUTO LXQJOMOBSPFBIAMD34/21/2025 7:58 AM EST ECG 12-FRKNARGK93/21/2025 7:49 AM EST XR ANKLE RT MIN 3 IRXOsqppun17/16/2025 8:30 AM EDTXR FOOT RT MIN 3 VWSRoutine 06/06/2025 8:28 AM EDTPROVATION GSVFJQAFUZOPnrufoy09/28/2024 1:59 PM EDT from Last 3 Months or Most Recently Relevant to Health Maintenance Results * X-ray abdomen ap 1 view (08/12/2025 9:35 AM EST)Anatomical RegionLaterality ModalityBody, AbdomenN/AComputed Radiography Narrative Authorizing ProviderResult TypeResult StatusNot In System Ref ProvIMG DIAGNOSTIC IMAGING ORDERABLESFinal Result * (ABNORMAL) Lactate (08/11/2025 11:56 AM EST)ComponentValueRef RangeTest Method Analysis TimePerformed AtPathologist SignatureLACTATE2.3(H)0.4 - 2.0 mmol/L 08/11/2025 12:16 PM ESTPROMEDICA INLAND VALLEY REGIONAL MEDICAL CENTERpecimen (Source) Anatomical Location / LateralityCollection Method / VolumeCollection Time Received TimeBloodVenous blood / UnknownVenipuncture / Inelfyt6708/11/2025 11:56 AM EST08/11/2025 11:58 AM EST Narrative Authorizing ProviderResult TypeResult StatusMadelelvira NAM BLOOD ORDERABLESFinal ResultPerforming OrganizationAddressCity/State/ZIP CodePhone Number [facility] [address] [place] [address], [place] * CT angiogram chest (08/11/2025 9:51 [...] 10:08 AM Authorizing ProviderResult TypeResult StatusChiquita Steele [facility] CT ORDERABLES Final Result * CT facial [...] abnormality of the cervical spine. Finalized by Mcihael Moore MD on 08/11/2025 9:59 AM Authorizing [...] SignatureTROPONIN I, HIGH SENSITIVITY2<21 ng/L110/12/2024 9:34 AM [facility] Specimen (Source)Anatomical Location / LateralityCollection Method / Volume Collection TimeReceived TimeBloodVenous blood / UnknownVenipuncture / Unknown 08/11/2025 8:57 AM EST08/11/2025 9:03 AM EST Narrative Authorizing ProviderResult TypeResult StatusTere NAM BLOOD ORDERABLESFinal ResultPerforming OrganizationAddressCity/State/ZIP CodePhone Number [facility] [address] [place] [address], * SARS/FLU A+B/RSV by NAAT/Molecular (M4RT Collection Tube) (08/11/2025 8:00 AM EST)ComponentValueRef RangeTest MethodAnalysis TimePerformed AtPathologist SignatureFLU A GFWGuypgjndZrbcjnfr80/21/2025 8:46 AM [facility]ITALFLU B CJHHwgqizkcThfshtzm42/21/2025 8:46 AM [facility]ITALRSV BY HTQKbvfmzjjFikjrdwc19/21/2025 8:46 AM EST [facility]ARS COV 2 BY PCRNot DetectedNot Detected 08/11/2025 8:46 AM [facility] (Source) Anatomical Location / LateralityCollection Method / VolumeCollection Time Received TimeSwabNasopharyngeal structure / Pehnagw9608/11/2025 8:00 AM EST 08/11/2025 8:09 AM EST Narrative [facility] - 08/11/2025 8:46 AM EST [...] operators who are performing tests using either GeneOntuitive DX or Goowy systems and is limited to laboratories that [...] GENERAL ORDERABLESFinal ResultPerforming OrganizationAddressCity/State/ZIP Code Phone Number [address] [address], * Troponin I, High Sensitivity 0 Hour (08/11/2025 7:58 AM EST)ComponentValueRef RangeTest MethodAnalysis TimePerformed AtPathologist SignatureTROPONIN I, HIGH SENSITIVITY3<21 ng/L110/12/2024 8:29 AM [facility] Specimen (Source)Anatomical Location / LateralityCollection Method / Volume Collection TimeReceived TimeBloodVenous blood / UnknownVenipuncture / Unknown 08/11/2025 7:58 AM EST08/11/2025 8:00 AM EST Narrative Authorizing ProviderResult TypeResult StatusTere NAM BLOOD ORDERABLESFinal ResultPerforming OrganizationAddressCity/State/ZIP CodePhone Number [address] [place] [address], [place] * (ABNORMAL) Lactate w/ Reflex (08/11/2025 7:58 AM EST)ComponentValueRef Range Test MethodAnalysis TimePerformed AtPathologist SignatureLACTATE W/REFLEX5.1 (HH)0.4 - 2.0 mmol/L110/12/2024 8:44 AM [facility] Specimen (Source)Anatomical Location / LateralityCollection Method / Volume Collection TimeReceived TimeBloodVenous blood / UnknownVenipuncture / Unknown 08/11/2025 7:58 AM EST08/11/2025 8:00 AM EST Narrative Authorizing ProviderResult TypeResult StatusTere NAM BLOOD ORDERABLESFinal ResultPerforming OrganizationAddClarion Psychiatric Centerty/State/ZIP CodePhone Number [address] [address], [place] * Thyroid profile includes TSH FT4 (08/11/2025 7:58 AM EST)ComponentValueRef RangeTest MethodAnalysis TimePerformed AtPathologist SignatureFREE T40.720.61 - 1.60 ng/dL08/11/2025 8:40 AM [facility]ITALTSH2.29 0.49 - 4.67 uIU/mL08/11/2025 8:40 AM [facility] Specimen (Source)Anatomical Location / LateralityCollection Method / Volume Collection TimeReceived TimeBloodVenous blood / UnknownVenipuncture / Unknown 08/11/2025 7:58 AM EST08/11/2025 8:00 AM EST Narrative Authorizing ProviderResult TypeResult StatusTere NAM BLOOD ORDERABLESFinal ResultPerforming OrganizationAddressCity/State/ZIP CodePhone Number [facility] [address] [place] [address], * (ABNORMAL) CBC auto differential (08/11/2025 7:58 AM EST)ComponentValueRef RangeTest MethodAnalysis TimePerformed AtPathologist SignatureWBC6.34 - 11 10^9L110/12/2024 8:04 AM [facility]OSPITALRBC Count4.70 4.1 - 5.7 10^1208/11/2025 8:04 AM [facility] Eklmztrpkb58.113 - 17 g/dL08/11/2025 8:04 AM [facility]ITALHematocrit42.839 - 50 %08/11/2025 8:04 AM [facility]ITALMCV9180 - 100 fL08/11/2025 8:04 AM [facility]ITALMCH32.127 - 34 pg08/11/2025 8:04 AM [facility]ITALMCHC35.332 - 36 g/dL08/11/2025 8:04 AM [facility]OSPITALRDW12.711.5 - 15 %08/11/2025 8:04 AM [facility]OSPITALPlatelet Ivskl332625 - 450 10^9L110/12/2024 8:04 AM EST [facility]ENTERMPV8.97 - 12 fL08/11/2025 8:04 AM EST [facility]ENTERNeutrophils %39.0%08/11/2025 8:04 AM EST [facility]ENTERLymphocytes %40.5%08/11/2025 8:04 AM EST [facility] HOSPITALMonocytes %7.1%08/11/2025 8:04 AM EST [facility] HOSPITALEosinophils %12.5%08/11/2025 8:04 AM EST [facility]ENTERBasophils %0.9%08/11/2025 8:04 AM EST [facility] CENTERNeutrophils Absolute (A)2.51.5 - 6.6 10^9/L 08/11/2025 8:04 AM ESTCHILLICOTHE VA MEDICAL CENTERLymphocytes Absolute 2.61.0 - 3.5 10^9/L110/12/2024 8:04 AM [facility] Monocytes Absolute0.50.0 - 0.9 10^9/L110/12/2024 8:04 AM ESTPRONORFOLK [facility]ENTER HOSPITALEosinophils Absolute0.8(H)0.0 - 0.4 10^9/L110/12/2024 8:04 AM ESTCHILLICOTHE VA MEDICAL CENTERBasophils Absolute0.10.0 - 0.2 10^9/L 08/11/2025 8:04 AM [facility]OS[facility]ITALDifferential Type AUTOMATED FUEGWUKNYOGZ94/21/2025 8:04 AM [facility]ITALpecimen (Source)Anatomical Location / LateralityCollection Method / VolumeCollection TimeReceived TimeBloodVenous blood / UnknownVenipuncture / Tccpwkf6708/11/2025 7:58 AM EST08/11/2025 8:00 AM EST Narrative Authorizing ProviderResult TypeResult StatusTere NAM BLOOD ORDERABLESFinal ResultPerforming OrganizationAddressCity/State/ZIP CodePhone Number [facility] [address] [place] [address], * APTT (08/11/2025 7:58 AM EST)ComponentValueRef RangeTest MethodAnalysis Time Performed AtPathologist YfnrgeesqMNKX2289 - 37 sec08/11/2025 8:11 AM EST [facility] (Source)Anatomical Location / LateralityCollection Method / VolumeCollection TimeReceived TimeBloodVenous blood / UnknownVenipuncture / Hbgrtwt4608/11/2025 7:58 AM EST08/11/2025 8:00 AM EST Narrative Authorizing ProviderResult TypeResult StatusTere Pantoja MDLAB BLOOD ORDERABLESFinal ResultPerforming OrganizationAddressty/State/ZIP CodePhone Number [address] [place] [address], [place] * Protime & INR (08/11/2025 7:58 AM EST)ComponentValueRef RangeTest Method Analysis TimePerformed AtPathologist YuyimjoqcJVSSKFU47.89.8 - 13.2 sec 08/11/2025 8:11 AM [facility]ITALINR1.00.9 - 1.2 08/11/2025 8:11 AM [facility]ITALpec[facility] (Source) Anatomical Location / LateralityCollection Method / VolumeCollection Time Received TimeBloodVenous blood / UnknownVenipuncture / Jyabelk2408/11/2025 7:58 AM EST08/11/2025 8:00 AM EST Narrative Authorizing ProviderResult TypeResult StatusTere Pantoja MDPRATT [facility] BLOOD ORDERABLESFinal ResultPerforming OrganizationAddressBrown [facility]/State/[facility] CodePhone Number [address] [place] [address], * (ABNORMAL) D-Dimer (08/11/2025 7:58 AM EST)ComponentValueRef RangeTest Method Analysis TimePerformed AtPathologist SignatureD VSXPZ202(H)1 - 255 ng/mL 08/11/2025 8:11 AM [facility]ITALComment:Results >255 ng/mL DDU: Results may be [...] TimeReceived TimeBloodVenous blood / Unknown Venipuncture / Qxzdoev1008/11/2025 7:58 AM EST08/11/2025 8:00 AM EST Narrative Authorizing ProviderResult TypeResult StatusTere NAM BLOOD ORDERABLESFinal ResultPerforming OrganizationAddressCity/State/ZIP CodePhone Number [address] [place] [address], [place] * Magnesium (08/11/2025 7:58 AM EST)ComponentValueRef RangeTest MethodAnalysis TimePerformed AtPathologist SignatureMAGNESIUM2.21.8 - 2.6 mg/dL08/11/2025 8:20 AM ESTPROKaiser Permanente Medical Center [facility] Ros[facility] (Source)Anatomical Location / LateralityCollection Method / VolumeCollection TimeReceived Time BloodVenous blood / UnknownVenipuncture / Cbwdkbu8108/11/2025 7:58 AM EST 08/11/2025 8:00 AM EST Narrative Authorizing ProviderResult TypeResult StatusTere Pantoja MDLAB BLOOD ORDERABLESFinal ResultPerforming OrganizationAddressCity/State/ZIP CodePhone Number [address] [address], [place] * (ABNORMAL) Lipase (08/11/2025 7:58 AM EST)ComponentValueRef RangeTest Method Analysis TimePerformed AtPathologist IxjcoubmpCZDWRC59(H)17 - 40 U/L110/12/2024 8:17 AM ESTC[facility] (Source)Anatomical Location / LateralityCollection Method / VolumeCollection TimeReceived Time BloodVenous blood / UnknownVenipuncture / Ystvqsz2908/11/2025 7:58 AM EST 08/11/2025 8:00 AM EST Narrative Authorizing ProviderResult TypeResult StatusTere Pantoja MDLAB BLOOD ORDERABLESFinal ResultPerforming OrganizationAddressCity/State/ZIP CodePhone Number [address] [address], [place] * Ethanol (08/11/2025 7:58 AM EST)ComponentValueRef RangeTest MethodAnalysis TimePerformed AtPathologist SignatureETHANOL<0.01<=0.08 g/dL08/11/2025 8:20 AM [facility]ITALComment: This report is intended for use in clinical monitoring or management of patients. Specimen (Source)Anatomical Location / LateralityCollection Method / Volume Collection TimeReceived TimeBloodVenous blood / UnknownVenipuncture / Unknown 08/11/2025 7:58 AM EST08/11/2025 8:00 AM EST Narrative Authorizing ProviderResult TypeResult StatusMaphilippe NAM BLOOD ORDERABLESFinal ResultPerforming OrganizationAddressCity/State/ZIP CodePhone Number [place] [phone] [place] [address], * (ABNORMAL) Comprehensive metabolic panel (08/11/2025 7:58 AM EST)Component ValueRef RangeTest MethodAnalysis TimePerformed AtPathologist SignatureSODIUM 990437 - 146 mmol/L110/12/2024 8:20 AM [facility] POTASSIUM4.63.5 - 5.0 mmol/L110/12/2024 8:20 AM [facility]OSPITALCHLORIDE10598 - 109 mmol/L110/12/2024 8:20 AM [facility]OSPITALCARBON SZIMSMX31(L)22 - 32 mmol/L110/12/2024 8:20 AM EST [facility]ENTERANION KFY443 - 15 mmol/L110/12/2024 8:20 AM [facility]OSPITALBLOOD UREA PYZZUFOI71 - 23 mg/dL 08/11/2025 8:20 AM [facility]PITALCREATININE0.930.70 - 1.20 mg/dL08/11/2025 8:20 AM [facility]ITALComment: METHOD TRACEABLE TO IDMS NHNBFAGECXRHEQI537(H)65 - 99 mg/dL08/11/2025 8:20 AM [facility]OSPITALCALCIUM9.68.5 - 10.5 mg/dL08/11/2025 8:20 AM [facility]OS[facility]ITALTOTAL PROTEIN7.86.0 - 8.0 g/dL 08/11/2025 8:20 AM [facility]OSPITALALBUMIN4.73.2 - 5.3 g/dL08/11/2025 8:20 AM [facility]OSPITALALKALINE AXIYITKHHTZ32092 - 130 U/L110/12/2024 8:20 AM [facility]ITALAST32<=41 U/L110/12/2024 8:20 AM [facility] ALT33<=40 U/L110/12/2024 8:20 AM [facility] BILIRUBIN,TOTAL1.10.3 - 1.2 mg/dL08/11/2025 8:20 AM [facility] HOSPITALEGFR Non-Race Dependent>90>=60 ml/min/1.73sq.m110/12/2024 8:20 AM [facility]ITALComment: eGFR not reported due to non-numeric value for Creatinine. Reported eGFR is based on the CKD-EPI 2020 equation that does not use a race coefficient. Specimen (Source)Anatomical Location / LateralityCollection Method / Volume Collection TimeReceived TimeBloodVenous blood / UnknownVenipuncture / Unknown 08/11/2025 7:58 AM EST08/11/2025 8:00 AM EST Narrative Authorizing ProviderResult TypeResult StatusMaphilippe NAM BLOOD ORDERABLESFinal ResultPerforming OrganizationAddressCity/State/ZIP CodePhone Number [facility] [address] [place] [address], * ECG 12 lead (08/11/2025 7:49 AM [...] Relevant to Health Maintenance Insurance * Guarantor: [id number] TypeRelation to PatientDate of BirthMercyhealth Walworth Hospital And Medical CenterBilling AddressCorporateEmployer * Guarantor: Bishop [place] TypeRelation to PatientDate of PhoneBilling AddressCorporateOther [facility] [place] [address] [place] [address] * Guarantor: MILKA Abhijeetjavier TypeRelation to PatientDate [...] [facility] [place] [place] [address] PCP - GeneralFamily Hmtvryhv99/21/25
--- OUTSIDE RECORDS SUMMARY | 2025-08-16 10:58 | XMS_ITS | Encounter Summary ---
Author Organization [facility] [employer] [facility] Address [id number] [address] [place] [address] Care Team Providers Care Washroom Attendant Name Role Phone Cisco Blanc DO Primary Care Provider + [phone] Reason for Referral * Medication Prior Authorization - ClosedSpecialtyDiagnoses / ProceduresReferred By ContactReferred To Contact Diagnoses Anal fissure Cisco Blanc DO [address], [place] [address] Phone: tel: fax: Referral IDStatusReasonStart DateExpiration DateVisits RequestedVisits [id number] Reason for Visit * ReasonOnset DateCommentsMed Qewrrr1308/02/2025 Encounter Details DateTypeDepartmentCare Team (Latest Contact Info)Athapeuzwwk30/12/2025Refill [facility] Internal Medicine - Family Medicine [address] [place] [address] Cisco Blanc DO [address], [place] [address] Anal fissure Social History Tobacco UseTypesPacks/DayYears UsedDateSmoking Tobacco: NjuagsWryhxgbiav219 07/23/1985 - 12/20/2018Passive Smoke Exposure: PastSmokeless Tobacco: [...] often do you attend oriental orthodox or restorationism services?Never08/01/2022ctive Member of Clubs or OrganizationsNot on file 08/01/2022How often do you attend meetings of the clubs or organizations you belong to?Never08/01/2022re you , , , , never , or living with a partner?Never nzokkfk9008/01/2022UDIT-CAnswerDate RecordedQ1: How often do you have a drink containing alcohol?Monthly or less 09/11/2024Q2: How many drinks containing alcohol do you have on a typical day when you are drinking?Patient does not drink09/11/2024Q3: How often do you have six or more drinks on one occasion?Less than iqedhuf8509/11/2024Overall Financial Resource Strain (CARDIA)AnswerDate RecordedHow hard is it for you to pay for the very basics like food, housing, medical care, and heating?Very hard12/06/2023 PHQ-2AnswerDate RecordedTotal Udpme697312/10/2024Finuintah basin medical center [place] of Occupational Health - Occupational Stress QuestionnaireAnswerDate [...] of a household?Yes12/06/2023hildcareAnswerDate RecordedDo problems getting child protection specialist make 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 you to [...] InformationValueDate RecordedSex Assigned at BirthNot on fileLegal BvyScqw9203/27/2015 11:30 AM EDTGender IdentityNot on fileSexual OrientationNot [...] GoalPatient Goal TypeAssociated ProblemsRecent ProgressPatient-Stated?Author home with new [facility] Jenny Miguel, RN Note: Evaluation of [...] [address] [facility], [facility] [place] [address] PCP - GeneralFamily Cblevdei03/21/25documented as of this encounter
--- OUTSIDE RECORDS SUMMARY | 2025-08-16 10:58 | XMS_ITS | Encounter Summary ---
Author Organization [facility] tem Address [facility]-[id number] [address] [place] [address] Care Team Providers Care Motor Man Name Role Phone GerardoCisco cao Paddy MCLAUGHLIN Primary Care Provider + [phone] Encounter Details DateTypeDepartmentCare Team (Latest Contact Info)Akjdcouvxsi61/24/2025Or[facility] - Family Medicine [address] [place] [phone] Ref Prov, [place] [address] Social History Tobacco UseTypesPacks/DayYears UsedDateSmoking Tobacco: HuxqmfFwbvzaoyid897 07/23/1985 - 12/20/2018Passive Smoke Exposure: PastSmokeless Tobacco: Never Comments:vape, today Alcohol UseStandard Drinks/WeekCommentsYes0 (1 standard drink = 0.6 oz pure alcohol)OccasionalAHC UtilitiesAnswerDate RecordedIn the past 12 months has the [employer], gas, oil, or water [employer] threatened to shut off services in your home?Yes09/11/2024Social Connection and Isolation PanelAnswerDate RecordedIn a typical week, how many times do you talk on the phone with family, friends, or neighbors?Twice a week08/01/2022How often do you get together with friends or relatives?Once a week08/01/2022How often do you attend muslim or scientologist services?Never08/01/2022ctive Member of Clubs or OrganizationsNot on file 08/01/2022How often do you attend meetings of the clubs or organizations you belong to?Never08/01/2022re you , , , , never , or living with a partner?Never hosjeqv1108/01/2022UDIT-CAnswerDate RecordedQ1: How often do you have a drink containing alcohol?Monthly or less 09/11/2024Q2: How many drinks containing alcohol do you have on a typical day when you are drinking?Patient does not drink09/11/2024Q3: How often do you have six or more drinks on one occasion?Less than dirwrcd4809/11/2024Overall Financial Resource Strain (CARDIA)AnswerDate RecordedHow hard is it for you to pay for the very basics like food, housing, medical care, and heating?Very hard12/06/2023 PHQ-2AnswerDate RecordedTotal Ammln072612/10/2024[facility] [place] of Occupational Health - Occupational Stress QuestionnaireAnswerDate [...] part of a household?Yes12/06/2023hildcareAnswerDate RecordedDo problems getting exceptional children teacher assistant make 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 you to [...] InformationValueDate RecordedSex Assigned at BirthNot on fileLegal OysTapu5203/27/2015 11:30 AM EDTGender IdentityNot on fileSexual OrientationNot on filedocumented as of this encounter Plan of Treatment Not on file documented as of this encounter Goals GoalPatient Goal TypeAssociated ProblemsRecent ProgressPatient-Stated?Author home with [facility] Jenny Miguel RN Note: Evaluation of progress towards goal: with support from friends and family, patient needs to [facility] documented as of this encounter Procedures Procedure NamePriorityDate/TimeAssociated DiagnosisCommentsXR ABDOMEN AP 1 VW Fbwipil9008/12/2025 9:35 AM ESTdocumented in this encounter Results [...] Blanc DO [address] [facility] [place], [place] [address] PCP - GeneralFamily Lslqxwxu15/21/25documented as of this encounter
--- OUTSIDE RECORDS SUMMARY | 2025-08-16 10:58 | XMS_ITS | Clinical Summary ---
Author Organization [facility] Address [address] [place] [address], [address] [place] [address] Care Team Providers Care Glass Mold Repairer Name Role Phone Tyson Fonseca MD Primary [...] InformationValueDate RecordedSex Assigned at BirthNot on fileLegal KdtArno15/18/2016 11:50 AM ESTGender IdentityNot on fileSexual OrientationNot on file Last Filed Vital Signs Vital SignReadingTime TakenCommentsBlood Ykfspjod418/9007/09/2016 2:16 PM EST Tfidj094607/09/2016 2:16 PM JKMSuoslekcque11.5 ??C (97.7 ??F)07/09/2016 11:57 AM ESTRespiratory Puij304609/08/2015 2:01 PM ESTOxygen Lggwiweqci01%07/09/2016 2:01 PM ESTInhaled Oxygen Concentration--Cloofz80.1 kg (170 lb)07/09/2016 11:57 AM ESTHeight--Body Mass Index-- Plan of Treatment Not on file Care Teams Team MemberRelationshipSpecialtyStart DateEnd Date Tyson Fonseca MD [facility]07/09/16
--- OUTSIDE RECORDS SUMMARY | 2025-08-16 10:58 | XMS_ITS | Encounter Summary ---
Author Organization [employer] tem Address [facility]-[id number] [address] [place] [address] Care Team Providers Care Geophysical Engineer Name Role Phone Jayashree Cisco Paddy MCLAUGHLIN Primary Care Provider + [phone] Encounter Details DateTypeDepartmentCare Team (Latest Contact Info)Chmtvurtdde66/21/2025Travel Social History Tobacco UseTypesPacks/DayYears UsedDateSmoking Tobacco: DrfghmTxoikwprhr949 07/23/1985 - 12/20/2018Passive Smoke Exposure: PastSmokeless Tobacco: Never Comments:vape, today Alcohol UseStandard Drinks/WeekCommentsYes0 (1 standard drink = 0.6 oz pure alcohol)OccasionalAHC UtilitiesAnswerDate RecordedIn the past 12 months has the electric, gas, oil, or water [employer] threatened to shut off services in your home?Yes09/11/2024Social Connection and Isolation PanelAnswerDate RecordedIn a typical week, how many times do you talk on the phone with family, friends, or neighbors?Twice a week08/01/2022How often do you get together with friends or relatives?Once a week08/01/2022How often do you attend jehovah's witness or judaism services?Never08/01/2022ctive Member of Clubs or OrganizationsNot on file 08/01/2022How often do you attend meetings of the clubs or organizations you belong to?Never08/01/2022re you , , , , never , or living with a partner?Never vzwsfep7208/01/2022UDIT-CAnswerDate RecordedQ1: How often do you have a drink containing alcohol?Monthly or less 09/11/2024Q2: How many drinks containing alcohol do you have on a typical day when you are drinking?Patient does not drink09/11/2024Q3: How often do you have six or more drinks on one occasion?Less than osmxaim4109/11/2024Overall Financial Resource Strain (CARDIA)AnswerDate RecordedHow hard is it for you to pay for the very basics like food, housing, medical care, and heating?Very hard12/06/2023 PHQ-2AnswerDate RecordedTotal Wubds911512/10/2024[facility] [place] of Occupational Health - Occupational Stress QuestionnaireAnswerDate [...] a household?Yes12/06/2023hildcareAnswerDate RecordedDo problems getting child support specialist make 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 you to [...] InformationValueDate RecordedSex Assigned at BirthNot on fileLegal MvvBmom3303/27/2015 11:30 AM EDTGender IdentityNot on fileSexual OrientationNot on filedocumented as of this encounter Plan of Treatment Not on file documented as of this encounter Goals GoalPatient Goal TypeAssociated ProblemsRecent ProgressPatient-Stated?Author home with self care Jenny Miguel, RN Note: Evaluation of progress towards goal: with support from friends and family, patient needs to fllow up with [facility] documented as of this encounter Visit Diagnoses Not on filedocumented in this encounter Additional Health Concerns InfectionOnset DateLast IndicatedResolved TimeRespiratory Rule-Out08/11/2025 8:46 AM ESTAssessmentNoted TimePHQ-9 Depression Total Score: 1:04 PM EDTdocumented as of this encounter Care Teams Team MemberRelationshipSpecialtyStart DateEnd Date Cisco Blanc DO [address] [facility] [address] PCP - GeneralFamily Xflfqdam02/21/25documented as of this encounter
--- OUTSIDE RECORDS SUMMARY | 2025-08-16 10:58 | XMS_ITS | Clinical Summary ---
Author Organization [facility] Address [address] [place] [address] Care Team Providers Care Pest Control Operator Name Role Phone Unavailable Primary Care Provider Unavailabl e Social History Tobacco UseTypesPacks/DayYears UsedDateSmoking Tobacco: Never AssessedSex and Gender InformationValueDate RecordedSex Assigned at BirthNot on fileLegal Sex Male11/03/2022 7:16 PM EDTGender IdentityNot on fileSexual OrientationNot on file Last Filed Vital Signs Vital SignReadingTime TakenCommentsBlood Pressure--Pulse--Temperature-- Respiratory Rate--Oxygen Saturation--Inhaled Oxygen Concentration--Pbmpuf01.8 kg (220 lb)07/29/2020 12:00 PM RYALfirdw471.7 cm (5' 8 )07/29/2020 12:00 PM ESTBody Mass Index33.45109/29/2019 12:00 PM EST Plan of Treatment Not on file
--- OUTSIDE RECORDS SUMMARY | 2025-08-16 10:58 | XMS_ITS | Encounter Summary ---
Author Organization [facility] Address [address] [place] [address] Care Team Providers Care Financial Accountant Name Role Phone Tyson Fonseca MD Primary Care Provider [phone] Vivian Brady MD Unavailable [phone] Vivian Brady MD Unavailable [phone] Source Comments In the event this information is protected by the Federal Confidentiality of Alcohol and Drug AbusePatient Records regulations: The Federal rules restrict any use of the information to criminally investigate or prosecute any alcohol or drug abuse patient.[facility] Reason for Visit * ReasonOnset DateCommentsRefill Ydkebjb2308/11/2025 Encounter Details DateTypeDepartmentCare Team (Latest Contact Info)Acxiovuwgjm84/21/2025Refill Colorectal Surgery [address] [phone] Lydia Drake PA-C [address] [place], [place] [id number] Refill Request Social History Tobacco UseTypesPacks/DayYears UsedDateSmoking Tobacco: NeverSmokeless Tobacco: NeverArea Deprivation IndexAnswerDate RecordedNational Score (1-100), lower number is lower dwax927902/28/2025State Score (1-10), lower number is lower risk9 02/28/2025Data from: https://www.neighborhoodatlas.medicine.[facility].edu/. Last address used for rxavdwnzkxo[address]02/28/2025Sex and Gender InformationValueDate RecordedSex Assigned at AxhevPnfv53/17/2025 4:03 PM EDT Legal YdcRdmo3411/11/2015 1:48 PM EDTGender QxvnbwrcSxzf90/17/2025 4:03 PM EDT Sexual AquayikyuugMksdpvws49/17/2025 4:03 PM EDTdocumented as of this encounter Plan of Treatment Not on file documented as of this encounter Visit Diagnoses Diagnosis Rectal spasm Anal spasm documented in this encounter Care Teams Team MemberRelationshipSpecialtyStart DateEnd Date Tyson Fonseca MD PCP - GeneralFamily Medicine11/11/15 Vivian Brady MD [address] [place] [id number] Gastroenterology01/16/25 Vivian Brady MD [address] [place] [address] WzjvlvcvgYnzokhaoyzquvjsq20/5/25documented as of this encounter
--- OUTSIDE RECORDS SUMMARY | 2025-08-16 10:58 | XMS_ITS | Encounter Summary ---
Demographics Address [address] [facility] [address] [place] [id number] Home Phone Mobile Phone Email Address Email Address [email or web address] Preferred Language ENG Marital Status Single Jew Affiliation Unknown Race White Ethnic Group or Author Organization [facility] Address [address] [place] [address] Care Team Providers Care Performing Arts Technicians Name Role Phone Tyson Fonseca MD Primary Care Provider [phone] Vivian Brady MD Unavailable [phone] Vivian Brady MD Unavailable [phone] Source Comments In the event this information is protected by the Federal Confidentiality of Alcohol and Drug AbusePatient Records regulations: The Federal rules restrict any use of the information to criminally investigate or prosecute any alcohol or drug abuse patient.[facility] Reason for Visit * ReasonCommentsPatient Update Encounter Details DateTypeDepartmentCare Team (Latest Contact Info)Dxtwrbxjvwj25/22/2025Telephone Colorectal Surgery [address] [phone] Lydia Drake PA-C [address] [place], [place] [phone] Patient Update Social History Tobacco UseTypesPacks/DayYears UsedDateSmoking Tobacco: NeverSmokeless Tobacco: NeverArea Deprivation IndexAnswerDate RecordedNational Score (1-100), lower number is lower hksx255602/28/2025State Score (1-10), lower number is lower risk9 02/28/2025Data from: https://www.neighborhoodatlas.medicine.[facility]/. Last address used for wxhric[address]/28/[address]25Sex and Gender InformationValueDate RecordedSex Assigned at YghkvJhyy43/17/2025 4:03 PM EDT Legal AvnBpcl2411/11/2015 1:48 PM EDTGender DgmiijczMwps42/17/2025 4:03 PM EDT Sexual PqlmniiayrwTrxipfjf20/17/2025 4:03 PM EDTdocumented as of this encounter Miscellaneous Notes * Telephone Encounter - Lydia Drake PA-C - 08/12/2025 11:09 AM EST Called Chai back. He advised he just completed the first xray and is awaiting an uber route cdl driver. He got so dizzy after his [...] - 08/12/2025 10:30 AM EST Chai Russell [phone], experiencing constipation so bad its causing him to pass out. He's scheduled to have sitz marker test this week. documented in this encounter Plan of Treatment Not on file documented as of this encounter Visit Diagnoses Not on filedocumented in this encounter Care Teams Team MemberRelationshipSpecialtyStart DateEnd Date Tyson Fonseca MD PCP - GeneralFactly Medicine11/11/15 Vivian Brady MD [address] [place] [address] Gastroenterology01/16/25 Vivian Brady MD [address] [place] [address] ZcvsdtamnBchiuboyaoepqsbm91/5/25documented as of this encounter
--- OUTSIDE RECORDS SUMMARY | 2025-08-16 10:58 | XMS_ITS | Clinical Summary ---
Author Organization [facility] Address [address] [place] [address] Care Team Providers Care Waterworks Chief Engineer Name Role Phone Tyson Fonseca MD Primary Care Provider [phone] Vivian Brady MD Unavailable [phone] Vivian Brady MD Unavailable [phone] Allergies No known active allergies Medications MedicationSigDispense [...] as needed. 60 tablet /Discontinued Encounters DateTypeDepartmentCare DbhqDwrlnasqces09/22/2025Telephone Colorectal Surgery [address] [phone] Lydia Drake PA-C Patient Laaqsf3408/11/2025Refill Colorectal Surgery [address] [address] Lydia Drake PA-C Refill Qpoxach1207/02/2025 Patient Msg Colorectal Surgery [address] [address] Lydia Drake PA-C Follow up from visit jivifilbo13/10/2025 12:08 PM EST - 07/01/2025 6:26 PM [facility] Emergency [facility] Emergency Department [address] [place] [address] Jonh Bethea MD [facility] Discharge Disposition: Home07/01/2025 11:00 AM ESTOffice Visit Colorectal Surgery [address] [address] Lydia Drake PA-C Constipation, unspecified constipation type (Primary Dx); Rectal spasm; Chronic rectal pain; Generalized abdominal pain; Difficulty breathing; Chest gijslujuka69/10/7034Feftrf05/10/2025 Patient Msg Colorectal Surgery [address] [address] Lydia Drake PA-C 06/28/20251622Gpbovu81/06/2025Telephone Colorectal Surgery [address] [address] Suma Navarrete DO Patient Guhues4806/26/2025Transcribe Orders [place] [address] Vivian Brady MD Other specified symptoms and signs involving the digestive system and abdomen (Primary Dx); Outlet dysfunction constipation; Other specified disorders of eqzqcf6805/21/2025 Patient Msg Colorectal Surgery [address] [address] Lydia Drake PA-C Appointment Requestfrom Last 3 Months Social History Tobacco UseTypesPacks/DayYears UsedDateSmoking Tobacco: NeverSmokeless Tobacco: Never Tobacco Cessation:Counseling Given: Not Answered Area Deprivation IndexAnswerDate RecordedNational Score (1-100), lower number is lower xvvr864302/28/2025State Score (1-10), lower number is lower kdhn35402/28/2025 Data from: https://www.neighborhoodatlas.[facility]/. Last address used for qycnknhllhn877 [address]/28/2025Sex and Gender InformationValueDate RecordedSex Assigned at UxarqWkzg55/17/2025 4:03 PM EDTLegal BjwMoeh2011/11/2015 1:48 PM EDTGender OkonsspzOulg20/17/2025 4:03 PM EDTSexual OrientationStraight 03/07/2025 4:03 PM EDT Last Filed Vital Signs Vital SignReadingTime TakenCommentsBlood Hrzewhah104/9611 5:30 PM EST Itvaq641207/01/2025 6:00 PM UPIKedpyxstrdn13.1 ??C (97 ??F)07/01/2025 12:15 PM EST Respiratory Tqpk168908/31/2024 12:15 PM ESTOxygen Vzfxkttusy963%07/01/2025 6:00 PM ESTInhaled Oxygen Concentration--Vnbsxi29.5 kg (162 lb)07/01/2025 10:57 AM EST Vycedf474.3 cm (5' 9 )07/01/2025 10:57 AM ESTBody Mass Index23.9211/05/2025 10:57 AM EST Plan of Treatment Health MaintenanceDue DateLast DoneCommentsAnxiety Yvzpplgbh97/14/1987Depression Mmhfxxijx38/14/1987HIV Ubofoxsvn59/14/1987Hepatitis B Vaccine (1 of 3 - 19+ 3- dose series)1987CT Wajevrutoxyt96/14/2014Cologuard (FIT-DNA)2013 Fecal Occult Blood09/04/20131695Mumkzsxjktkyy56/14/2014Pneumococcal Vaccine: 50+ (1 of 1 - PCV)2018Shingrix Vaccine (1 of 2)09/04/20180167Ywnkkldakui56/28/2025 02/17/2024olorectal Cancer Wlqzmnjhk41/28/2025ovid-19 Vaccine ( season), 12/08/2020, 11/18/2020Influenza Vaccine (#1) , 04/06/2020, 06/07/2019Diabetes Apzuamiau15/21/2028 08/11/2025, 07/01/2025, 12/10/2024, Additional history existsLipid Screening , 07/22/2022rostate Cancer Screening Yimotsnlym57/21/2030 12/10/2024DTaP,Tdap,Td Vaccine (3 - Td or Tdap), 10/27/2013 RSV Vaccine (1 - 1-dose 75+ series)2043Hepatitis C ScreeningCompleted 09/26/2020, 12/19/2019, 12/19/2019, Additional history exists Procedures Procedure NamePriorityDate/TimeAssociated DiagnosisCommentsHIGH SENSITIVITY TROPONIN T (THIRD) 3 HRS AFTER XUJNEWGPOAN40/10/2025 5:55 PM EST ED BG VENOUS/LAB KTKRMUDvikfyb71/10/2025 4:56 PM EST HIGH SENSITIVITY TROPONIN T (SECOND)STAT108/31/2024 4:[address] ABD/PEL W OTFASLRAC96/10/2025 4:37 PM EST MRI LUMBAR SPINE WO/W SDCJVEURQ79/10/2025 3:48 PM EST MRI THORACIC SPINE WO/W HELLLJBKA46/10/2025 3:48 PM EST MRI CERVICAL SPINE WO/W KMPJDPYRA64/10/2025 3:48 PM EST HIGH SENSITIVITY TROPONIN T (INITIAL)STAT108/31/2024 1:32 PM EST MAGNESIUM NHIMRUP62/10/2025 12:43 PM EST COMPREHENSIVE METABOLIC POWKXXGMW41/10/2025 12:43 PM EST CBC + VTGLFYGL51/10/2025 12:43 PM EST PT ED PATIENT OLDXWALKVKH90/07/2025 from Last 3 Months Results * HIGH SENSITIVITY TROPONIN T (THIRD) 3 HRS AFTER INITIAL (07/01/2025 5:55 PM EST)ComponentValueRef RangeTest MethodAnalysis TimePerformed AtPathologist SignatureTNT High Mivvhqsctnq11<12 ng/L108/31/2024 6:19 PM [facility]OH[facility] LABSpecimen (Source)Anatomical Location / LateralityCollection Method / VolumeCollection TimeReceived TimeBloodBLOOD SPECIMEN / UnknownVenipuncture / Eositeb5907/01/2025 5:55 PM EST07/01/2025 5:59 PM EST Narrative Authorizing ProviderResult TypeResult StatusAchillfrederic Bethea MDLABORATORYFinal ResultPerforming OrganizationAddressCity/State/ZIP CodePhone Number [facility] [address] * (ABNORMAL) ED BG VENOUS/LAB PANELS (07/01/2025 4:56 PM EST)ComponentValueRef RangeTest MethodAnalysis TimePerformed AtPathologist SignaturePotassium (POCT) 3.4(A)3.5 - 5.0 mmol/LED [facility] HospitalCollection Ykkq6528EG [facility] HospitalFIO221.0%ED [facility] Hospitalpecimen (Source)Anatomical Location / LateralityCollection Method / VolumeCollection TimeReceived Time07/01/2025 4:56 PM EST Narrative [facility] - 07/01/2025 4:56 PM EST Meter ID:ED ABL2 Location:ED [facility], [address] [place] [address], [facility] Authorizing ProviderResult TypeResult StatusAchiayanna Bethea MDEMERGENCY DEPTFinal ResultPerforming OrganizationAddressCity/State/ZIP CodePhone Number [facility] ED [address] * HIGH SENSITIVITY TROPONIN T (SECOND) (07/01/2025 4:44 PM EST)ComponentValueRef RangeTest MethodAnalysis TimePerformed AtPathologist SignatureTNT High Awsoceoxvbl02<12 ng/L108/31/2024 5:22 PM ESTWOOSTER COMMUN[facility] H[facility]PITAL MAIN LABSpecimen (Source)Anatomical Location / LateralityCollection Method / VolumeCollection TimeReceived TimeBloodBLOOD SPECIMEN / UnknownVenipuncture / Zesysct9507/01/2025 4:44 PM EST07/01/2025 5:00 PM EST Narrative Authorizing ProviderResult TypeResult StatusJonh Bethea MDLABORATORYFinal ResultPerforming OrganizationAddressCity/State/ZIP CodePhone Number [facility] [address] [place] [address], * CT ABD/PEL W IVCON (07/01/2025 4:37 PM EST)Anatomical RegionLateralityModality AbdomenComputed TomographySpecimen (Source)Anatomical Location / Laterality Collection Method / VolumeCollection TimeReceived Time07/01/2025 4:37 PM EST Impressions 07/01/2025 5:27 PM EST IMPRESSION: No acute process in the abdomen/pelvis. ??Specifically, no bowel obstruction as queried. Overhead Cleaner: EB ?? Transcribe Date/Time: Jul 01 2025 ??4:50P Dictated by : KIEL LUKE MD This examination was interpreted and the report reviewed and electronically signed by: ROMULO COLVIN MD on Jul 01 2025 ??5:25PM ??EST Narrative 07/01/2025 5:27 PM EST * * *Final Report* * * DATE OF EXAM: Jul 01 2025 ??4:37PM ?? [place] ?? 0530 ??- ??CT ABD/PEL W IVCON [...] images: No additional findings. Procedure Note Provider, [facility] [place] - 07/01/2025 * * *Final Report* * * DATE OF EXAM: Jul 01 2025 4:37PM [place] 0530 - CT ABD/PEL W IVCON / [...] abdomen/pelvis. Specifically, no bowel obstruction as queried. Overhead Cleaner: EB Transcribe Date/Time: Jul 01 2025 4:50P [...] PM ??via verbal communication. --END OF FINDING-- Overhead Cleaner: EB ?? Transcribe Date/Time: Jul 01 2025 [...] renal cyst. ??No dilated bowel within the hmfyb-qa-cwzo. CERVICAL: Counting reference: ??Craniocervical junction. ?? Anatomic [...] are normal in appearance. Procedure Note Provider, [facility] - 07/01/2025 * * *Final Report* * * DATE OF EXAM: Jul 01 2025 3:47PM [facility] 0304 - MRI LUMBAR SPINE WO/W [...] renal cyst. No dilated bowel within the imkjq-tm-vygg. CERVICAL: Counting reference: Craniocervical junction. Anatomic Variants:None. [...] PM via verbal communication. --END OF FINDING-- Overhead Cleaner: EB Transcribe Date/Time: Jul 01 2025 3:48P [...] PM ??via verbal communication. --END OF FINDING-- Overhead Cleaner: EB ?? Transcribe Date/Time: Jul 01 2025 [...] renal cyst. ??No dilated bowel within the qubjm-hi-prla. CERVICAL: Counting reference: ??Craniocervical junction. ?? Anatomic [...] are normal in appearance. Procedure Note Provider, [facility] - 07/01/2025 * * *Final Report* * * DATE OF EXAM: Jul 01 2025 3:47PM [facility] 0326 - MRI THORACIC SPINE WO/W [...] renal cyst. No dilated bowel within the zgnxn-xe-rroi. CERVICAL: Counting reference: Craniocervical junction. Anatomic Variants:None. [...] PM via verbal communication. --END OF FINDING-- Overhead Cleaner: EB Transcribe Date/Time: Jul 01 2025 3:48P [...] PM ??via verbal communication. --END OF FINDING-- Overhead Cleaner: PSCB ?? Transcribe Date/Time: Jul 01 2025 [...] renal cyst. ??No dilated bowel within the izogo-sk-dkwm. CERVICAL: Counting reference: ??Craniocervical junction. ?? Anatomic [...] are normal in appearance. Procedure Note Provider, [facility] - 07/01/2025 * * *Final Report* * * DATE OF EXAM: Jul 01 2025 3:47PM [facility] 0298 - MRI CERVICAL SPINE WO/W [...] renal cyst. No dilated bowel within the wddlt-xz-vsrh. CERVICAL: Counting reference: Craniocervical junction. Anatomic Variants:None. [...] PM via verbal communication. --END OF FINDING-- Overhead Cleaner: EB Transcribe Date/Time: Jul 01 2025 3:48P Dictated by : ZAIRA PEDROZA MD This examination was interpreted and the report reviewed and electronically signed by: TALYA YOO MD on Jul 01 2025 5:12PM EST Authorizing ProviderResult TypeResult StatusAchilles Bebos MDMRI-PAMAFinal Result * (ABNORMAL) HIGH SENSITIVITY TROPONIN T (INITIAL) (07/01/2025 1:32 PM EST) ComponentValueRef RangeTest MethodAnalysis TimePerformed AtPathologist SignatureTNT High Obdvurizjcf01(H)<12 ng/L108/31/2024 2:08 PM ESTWOOSTER COMM[facility] MAIN LABSpecimen (Source)Anatomical Location / LateralityCollection Method / VolumeCollection TimeReceived TimeBloodBLOOD SPECIMEN / Unknown Venipuncture / Vbyezvg9607/01/2025 1:32 PM EST07/01/2025 1:48 PM EST Narrative Authorizing ProviderResult TypeResult StatusAchilles Lake MDLABORATORYFinal ResultPerforming OrganizationAddressCity/State/ZIP CodePhone Number [facility] [address] [place] [address], * MAGNESIUM (07/01/2025 12:43 PM EST)ComponentValueRef RangeTest MethodAnalysis TimePerformed AtPathologist SignatureMagnesium1.91.7 - 2.3 mg/dL07/01/2025 1:16 PM [facility] LABSpecimen (Source)Anatomical Location / LateralityCollection Method / VolumeCollection TimeReceived TimeBloodBLOOD SPECIMEN / UnknownVenipuncture / Qohsrnl3107/01/2025 12:43 PM EST07/01/2025 12:49 PM EST Narrative Authorizing ProviderResult TypeResult StatusAchillfrederic Rosasjoaquim SCLABORATORYFinal ResultPerforming OrganizationAddressCity/State/ZIP CodePhone Number [facility] [address] [place] [address], * (ABNORMAL) COMPREHENSIVE METABOLIC PANEL (07/01/2025 12:43 PM EST)Component ValueRef RangeTest MethodAnalysis TimePerformed AtPathologist Signature Protein, Total8.3(H)6.3 - 8.0 g/dL07/01/2025 1:16 PM [facility] LABAlbumin5.0(H)3.9 - 4.9 g/dL07/01/2025 1:16 PM [facility] LAB Calcium, Total10.3(H)8.5 - 10.2 mg/dL07/01/2025 1:16 PM [facility] LABBilirubin, Total0.80.2 - 1.3 mg/dL07/01/2025 1:16 PM [facility] LABAlkaline Cwngwojlomk692(H)38 - 113 U/L108/31/2024 1:16 PM EST [facility] BKJISJ3871 - 40 U/L108/31/2024 1:16 PM [facility] LABComment:Results may be falsely increased due to interference from hemolysis. Suggest reorder as clinically indicated.NVE3540 - 54 U/L 07/01/2025 1:16 PM [facility] LABComment:Results may be falsely increased due to interference from hemolysis. Suggest reorder as clinically i ndicated.Kooiebu2750 - 99 mg/dL07/01/2025 1:16 PM [facility] LAB Comment: The [place] Diabetes Association (ADA) provides guidance for cutoff [...] Standards of Medical Care in Diabetes 2016, [place] [employer] Association. Diabetes Care. 2016.39(Suppl 1). KUO365 - 24 mg/dL07/01/2025 1:16 PM [facility] LABCreatinine0.72 (L)0.73 - 1.22 mg/dL07/01/2025 1:16 PM [facility] UFWAmccti673308 - 144 mmol/L108/31/2024 1:16 PM [facility] KAOXfyumqnnq08/10/2025 1:16 PM [facility] LABComment:Unable to assay due to interference from hemolysis. Suggest reorder as clinically indicated.Drxpljob77596 - 107 mmol/L108/31/2024 1:16 PM [facility] HZGES950(L)22 - 30 mmol/L 07/01/2025 1:16 PM [facility] LABAnion Gap19(H)8 - 15 mmol/L 07/01/2025 1:16 PM [facility] LABEstimated Glomerular Filtration Btjb740>=60 mL/min/1.73m 07/01/2025 1:16 PM [facility] LABComment:Estimated Glomerular Filtration Rate (eGFR) is calculated [...] VolumeCollection TimeReceived TimeBloodBLOOD SPECIMEN / UnknownVenipuncture / Cebfdka8807/01/2025 12:43 PM EST07/01/2025 12:49 PM EST Narrative Authorizing ProviderResult TypeResult StatusAchilles Lake CHAVISLABORATORYFinal ResultPerforming OrganizationAddressCity/State/ZIP CodePhone Number [facility] [address] * (ABNORMAL) COMPLETE BLOOD COUNT AND DIFFERENTIAL (07/01/2025 12:43 PM EST) ComponentValueRef RangeTest MethodAnalysis TimePerformed AtPathologist SignatureWBC8.343.70 - 11.00 k/uL07/01/2025 12:57 PM [facility] LABRBC4.744.20 - 6.00 m/uL07/01/2025 12:57 PM [facility] LAB Mntfuhaqet62.413.0 - 17.0 g/dL07/01/2025 12:57 PM [facility] LAB Yzfwhoyzxl72.639.0 - 51.0 %07/01/2025 12:57 PM [facility] LABMCV 89.980.0 - 100.0 fL07/01/2025 12:57 PM [facility] BAZMNQ64.526.0 - 34.0 pg07/01/2025 12:57 PM [facility] ZQIEJKA84.2(H)30.5 - 36.0 g/dL07/01/2025 12:57 PM [facility] LABRDW-CV11.611.5 - 15.0 %07/01/2025 12:57 PM [facility] LABPlatelet Dkewq830739 - 400 k/uL07/01/2025 12:57 PM [facility] IIRBVR71.69.0 - 12.7 fL 07/01/2025 12:57 PM [facility] LABNeutrophils %58.7%07/01/2025 12:57 PM [facility] LABAbs Neut4.901.45 - 7.50 k/uL07/01/2025 12:57 PM [facility] LABLymphocytes %26.9%07/01/2025 12:57 PM [facility] LABAbs Lymph2.241.00 - 4.00 k/uL07/01/2025 12:57 PM [facility] LABMonocytes %9.2%07/01/2025 12:57 PM [facility] LABAbs Mono0.77<0.87 k/uL07/01/2025 12:57 PM [facility] LABEosinophils %4.0%07/01/2025 12:57 PM [facility] LABAbs Eosin0.33<0.46 k/uL07/01/2025 12:57 PM [facility] LABBasophils % 0.7%07/01/2025 12:57 PM [facility] LABAbs Baso0.06<0.11 k/uL 07/01/2025 12:57 PM [facility] LABImmature Granulocytes %0.5% 07/01/2025 12:57 PM [facility] LABAbs Immature Gran0.04<0.10 k/uL07/01/2025 12:57 PM [facility] LABNRBC0.0/100 WBC07/01/2025 12:57 PM [facility] LABAbsolute nRBC<0.01<0.01 k/uL07/01/2025 12:57 PM [facility] LABDiff FaxcNlfi18/10/2025 12:57 PM [facility] LABSpecimen (Source)Anatomical Location / Laterality Collection Method / VolumeCollection TimeReceived TimeBloodBLOOD SPECIMEN / UnknownVenipuncture / Qsnxkcu6607/01/2025 12:43 PM EST07/01/2025 12:[address] [facility] Authorizing ProviderResult TypeResult StatusAchilles Lake CHAVISLABORATORYFinal ResultPerforming OrganizationAddressCity/State/ZIP CodePhone Number [facility] [address] [place] [address], * PT ED PATIENT INFORMATION (06/28/2025)Specimen (Source)Anatomical [...] SAccjavier TypeRelation to PatientDate of BirthPhone Billing AddressPersonal/RlaypmNoor83/14/1971 [address] [place] [address] Care Teams Team MemberRelationshipSpecialtyStart DateEnd Tyson Fonseca MD PCP - GeneralFamily Medicine11/11/15 Vivian Brady MD [address] [address] Gastroenterology01/16/25 Vivian Brady MD [address] [address] PaceeknfzKsitxihufarmpxcg70/5/25
--- OUTSIDE RECORDS SUMMARY | 2025-08-16 10:58 | XMS_ITS | Patient Health Record ---
Author Organization [facility] [place] Address [address] [place] [address] Care Team Providers Care Car Mover Name Role Phone Cisco Blanc DO Primary [...] Status Risk Notes Problem Metatarsal bone fracture (063080 009) Displaced fracture of second metatarsal bone, [...] End Date [facility] [employer] [address] [place] [address] [id number] Ambika Russellelf - patient is the insured Medical (General) History Medical History History ICD Code Hypertension I10 Right foot pain M79.671 Surgical History Surgery Date(Month/Year) appendectomy compartment syndrome left hand
--- OUTSIDE RECORDS SUMMARY | 2025-08-16 10:58 | XMS_ITS | Encounter Summary ---
Author Organization [facility] tem Address [employer] [facility] [employer]-[id number] [address] [place] [address] Care Team Providers Care Nurse Research Name Role Phone Cisco Blanc DO Primary Care Provider + [phone] Reason for Visit * ReasonOnset DateCommentsMed Lweris0208/11/2025 Encounter Details DateTypeDepartmentCare Team (Latest Contact Info)Aonzimjgqrk82/21/2025Refill [facility] Physicians Internal Medicine - Family Medicine [address] [place] [id number] Cisco Blanc DO [address] [facility] [place] [address] Social History Tobacco UseTypesPacks/DayYears UsedDateSmoking Tobacco: OmqqjnNkzbutzxfy754 07/23/1985 - 12/20/2018Passive Smoke Exposure: PastSmokeless Tobacco: [...] relatives?Once a week12/11/2022How often do you attend sabianism or cheondoism services?Never08/01/2022ctive Member of Clubs or OrganizationsNot on file 08/01/2022How often do you attend meetings of the clubs or organizations you belong to?Never08/01/2022re you , , , , never , or living with a partner?Never ucoihts6608/01/2022UDIT-CAnswerDate RecordedQ1: How often do you have a drink containing alcohol?Monthly or less 09/11/2024Q2: How many drinks containing alcohol do you have on a typical day when you are drinking?Patient does not drink09/11/2024Q3: How often do you have six or more drinks on one occasion?Less than goxxpyc7909/11/2024Overall Financial Resource Strain (CARDIA)AnswerDate RecordedHow hard is it for you to pay for the very basics like food, housing, medical care, and heating?Very hard12/06/2023 PHQ-2AnswerDate RecordedTotal Zscbi845312/10/2024Finblue mountain hospital, inc. [place] [facility] Occup[employer] - Occupational Stress QuestionnaireAnswerDate [...] of a household?Yes12/06/2023hildcareAnswerDate RecordedDo problems getting children's nursery assistant make 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 you to [...] InformationValueDate RecordedSex Assigned at BirthNot on fileLegal GpaPkov3603/27/2015 11:30 AM EDTGender IdentityNot on fileSexual OrientationNot [...] [address] [place] [address] PCP - GeneralFamily Lvjiqwey52/21/25documented as of this encounter
--- OUTSIDE RECORDS SUMMARY | 2025-08-16 10:58 | XMS_ITS | Clinical Summary ---
Author Organization [facility] Address [address] [place] [address] Care Team Providers Care Tick Sewer Name Role Phone Unavailable Primary Care Provider Unavailabl e Social History Tobacco UseTypesPacks/DayYears UsedDateSmoking Tobacco: Never AssessedUT Safety & EnvironmentAnswerDate RecordedFear of Current or Ex-PartnerNot on file 10/13/2023Emotionally AbusedNot on file10/13/2023hysically AbusedNot on file 10/13/2023Sexually AbusedNot on file4Physically or Sexually AbusedNot on file10/13/2023Sex and Gender InformationValueDate RecordedSex Assigned at BirthNot on fileLegal YoxFiun4502/17/2022 11:50 PM EDTGender IdentityNot on file Sexual OrientationNot on file Plan of Treatment Health MaintenanceDue DateLast DoneCommentsCT Jpuugufygdrb53/14/1969Colonoscopy 1968Colorectal Cancer Cxkzbozhj95/14/1969FIT-DNA1968FIT1968 FOBT1968 9748Rgvzdcjrozolr50/14/1969Depression Onjrrjact82/14/1981Hepatitis B Vaccines (1 of 3 - 19+ 3-dose series)1987Pneumococcal Vaccine: Pediatrics (0 to 5 Years) and At-Risk Patients (6 to 64 Years) (1 of 2 - PCV)1987 Adult Jvmzsbd0709/04/1990Zoster Vaccines (1 of 2)2018COVID-19 Vaccine (1 - [...] Russell TypeRelation to PatientDate of BirthPhone Billing AddressPersonal/PdfndrBuee73/14/1971 [address] [place] [address] * Guarantor: Chai Russell TypeRelation to PatientDate of BirthPhone Billing AddressThird Democrat XeyahnosjHpuv94/14/1971 [address] [place] [address]
--- NOTE | 2025-08-16 10:59 | XR_ITS ---
The [address] [address] Patient Name: HARLAN ARNOLD MRN: [id number] date: 1970 Sex: M Assigned Patient Location: RAD Current Patient Location: [facility] Accession/Order Number: [id number] Exam Date: 08/16/2025 11:08 Report Date: 08/16/2025 11:53 At the request of: NON-STAFF PHYSICIAN MD Procedure: XR abdomen 1V SINGLE VIEW ABDOMEN COMPARISON: 08/14/[address] 06/21/2025 CLINICAL DATA: Constipation. Sitz marker test. Supine view of the abdomen and pelvis was obtained. There is air and stool within the colon, decreased in amount since most recent comparison. There is also air within nondistended small bowel within the abdomen. There are 2 residual markers overlying the left iliac crest, likely within the distal descending colon. There are no soft tissue masses or suspect renal calculi. Degenerative changes are seen within the spine. XR/XR abdomen 1V IMPRESSION: NONSPECIFIC BOWEL GAS PATTERN. 2 RESIDUAL MARKERS OVERLYING THE DISTAL DESCENDING COLON Impression dictated by: Anni Whitley M.D. 08/16/2025 11:53 AM Dictation [facility] Electron[facility] authenticated by: [id number] Y Date: 08/16/2025 11:53
== END 2025-08-16 10:54 | disposition home or self-care (01) ==
LOC: RAD 10:56
PROVIDERS: PCP Family Medicine
DX: K59.00 Constipation, unspecified (principal)
CPT/HCPCS: 74018